=== PATIENT | female | born 1965 | race Caucasian/White ===

== ENCOUNTER 2020-07-02 21:36 | Outpatient (REF) | payer MEDICAID, SELFPAY ==
[2020-07-02 22:24] LABS: Hemoglobin A1C 7.8 % (<5.7)
== END 2020-07-02 21:56 ==
LOC: NCHCN 21:36
PROVIDERS: Visit Provider Registered Nurse
DX: E11.29 Type 2 diabetes mellitus with other diabetic kidney complication (principal)
CPT/HCPCS: 83036

== ENCOUNTER 2021-03-10 13:01 | Outpatient (REF) | payer MEDICAID, SELFPAY ==
--- OUTSIDE RECORDS SUMMARY | 2021-03-10 13:04 | XMS_ITS ---
:1965 Author Care Team Providers Name Role Phone CALI GARCIA MD General Surgeon [phone] RAVI SILVA Primary Care Provider [phone] Allergies Code Code System Name Reaction Severity Status Onset NKDA ? Medications Name Status Start Date Stop Date ? ? amoxicillin 875 mg-potassium Completed ? clavulanate 125 mg tablet baclofen 10 mg tablet Active ? Not availa ble BD Ultra-Fine Short Pen Needle 31 gauge Active ? Not available x 03/07 Calcitrate 315 mg calcium-6.25 mcg (250 Active ? Not available unit) tablet cephalexin 250 mg capsule Completed ? 2018 cephalexin 500 mg capsule Completed ? 2018 ciclopirox 8 % topical solution Active ? Not available erythromycin 5 mg/gram (0.5 %) eye Completed ? 03/05/2019 ointment ferrous sulfate 325 mg (65 mg iron) Active ? Not available tablet,delayed release Flintstones Complete (iron) chewable Active ? Not available tablet Flintstones Gummies [place]-3 Completed ? 02/20 1 tablet twice daily Flintstones with Iron 18 mg iron Completed ? 03/05/2019 chewable tablet fluconazole 150 mg tablet Active ? Not av ailable fluconazole 200 mg tablet Completed ? 2018 folic acid 1 mg tablet Active ? Not avail able FreeStyle Lite Strips Active ? Not availa ble gabapentin 300 mg capsule Active ? Not av ailable two capsules at bedtime gabapentin 600 mg tablet Completed ? 019 Take 1 tablet every day by oral route at bedtime. glipizide 10 mg tablet Active ? Not avail able Take 1 tablet twice a day by oral route. glipizide ER 10 mg tablet, extended Completed ? 03/05/2019 release 24 hr Humalog Mix 75-25 (U-100) Insulin 100 unit/mL subcutaneous s uspension Completed ? 03/05/2019 Inject 10 units twice a day by subcutaneous route as needed. Humira 40 mg/0.8 mL subcutaneous Active ? Not available syringe kit hydrocortisone-acetic acid 1 %-2 % ear Active ? Not available drops Invokana 100 mg tablet Active ? Not avail able Invokana 300 mg tablet Active ? Not avail able one tablet once daily K-Dur Completed ? 03/15/2018 20 MEQ tablet every day ketoconazole 2 % topical cream Completed ? 0 03/05/2019 Lasix 40 mg tablet Active ? Not available Take 1 tablet every day by oral route as needed. lidocaine 5 % topical patch Active ? Not available Lyrica 100 mg capsule Completed ? 03/15/2018 Take 1 capsule 3 times a day by oral route. Lyrica 50 mg capsule Completed ? 03/05/2019 metformin 500 mg tablet Active ? Not avai lable TAKE 1 TABLET (500 MG) BY ORAL ROUTE 2 TIMES PER DAY WITH MORNING ANDEVENING MEALS may take a third dose metformin ER 500 mg tablet,extended Completed ? 03/05/2019 release 24 hr methotrexate sodium 2.5 mg tablet Completed ? 03/05/2019 Novolog Mix 70-30 FlexPen U-100 Insulin Completed ? 03/05/2019 100 unit/mL subcutaneous pen Novolog Mix 70-30FlexPen U-100 Active ? N ot available 15units twice daily.... also has sliding scale nystatin 100,000 unit/gram topical powder Active ? Not available use to affected areas as needed omeprazole 20 mg capsule,delayed Active ? Not available release ondansetron 4 mg disintegrating tablet Completed ? 03/15/2018 Take 1 tablet every 8 hours by oral route as needed. OsmoPrep 1.5 gram (1.102-0.398) tablet Completed ? 03/05/2019 oxycodone 10 mg tablet Completed ? 9 oxycodone-acetaminophen 10 mg-325 mg tablet Active ? Not available One tablet every 4 hours as needed for pain oxycodone-acetaminophen 5 mg-325 mg tablet Completed ? 03/05/2019 Take 1 tablet 6 times a day by oral route. pravastatin 20 mg tablet Completed ? 018 Take 1 tablet every day by oral route. Rectiv 0.4 % (w/w) ointment Active ? Not available apply to rectum twice daily SF 5000 Plus 1.1 % dental cream Active ? Not available SSD 1 % topical cream Active ? Not availa ble terconazole 0.4 % vaginal cream Active ? Not available terconazole 0.8 % vaginal cream Completed ? 03/05/2019 triamcinolone acetonide 0.1 % topical Completed ? 03/05/2019 cream triamcinolone acetonide 0.1 % topical ointment Active ? Not available apply to affected areas daily as needed ursodiol 300 mg capsule Completed ? 03/15/20 18 Take 1 capsule twice a day by oral route. Vitamin B-12 1,000 mcg tablet Active ? N ot available Vitamin B12 Completed ? 03/05/2019 500 mg every day in the morning Vitamin D2 1,250 mcg (50,000 unit) Active ? Not available capsule Vitamin D3 Completed ? 03/15/2018 1000 units once a week Problems Name Status Onset Date Source ? Type 2 Diabetes Mellitus Active 03/15/2018 ? Hyperlipidemia Unknown 03/15/2018 ? Depressive Disorder Unknown 03/15/2018 ? Neuropathy Active 03/15/2018 ? Gastroesophageal Reflux Disease Active 03/15/2018 ? Increased Blood Leukocyte Number Active ? History White Blood Cell Disorder Active ? Histor y Joint Pain in Ankle and Foot Active ? His tory Impingement Syndrome of Shoulder Active ? 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 History Genitalia Abnormal Cytology Findings Active ? Histo ry Human Papillomavirus Deoxyribonucleic Active ? History Acid Test Positive, High Risk on Cervical Specimen Strain of Supraspinatus Muscle AND/OR Active ? History Tendon Pain in Left Foot Active ? History Pain of Right Shoulder Joint Active ? His tory Procedures Date Name Performed by ? 03/16/2018 Colonoscopy Information not avai lable Notes: Polypsx2 09-23-2014 10/23/2016 Abdominoplasty Information not avai lable ? Gastric Bypass Information not avai lable Notes: 2015 ? Tubal Ligation Information not avai lable Results Lab Results Date Name Specimen Result Interpretation Description Value Range Status Address ? 03/16/2018 Pathology TISS - Report results ? Final N [facility] Study below [facility] [address] 02/21/2018 Drug Screen, UR ? Thc negative neg Final [facility] Urine NG/mL (50 [facility] NG/mL) [facility] L ab NG/mL (Internal) : [address] ? ? UR ? Pcp negative neg Final [facility] (25 [facility] NG/mL) [facility] L [facility] (Internal) : [address] ? ? UR ? Cassidy negative neg Final [facility] (150 [facility] NG/mL) [facility] L [facility] (Internal) : [address] ? ? UR ? Met negative neg Final [facility] (500 [facility] NG/mL) [facility] L [facility] (Internal) : [address] ? ? UR ? Opi negative neg Final [facility] (100 [facility] NG/mL) [facility] L [facility] (Internal) : [address] ? ? UR ? Amp negative neg Final [facility] (500 [facility] NG/mL) [facility] L [facility] (Internal) : [address] ? ? UR ? Bzo negative neg Final [facility] (150 [facility] NG/mL) [facility] L [facility] (Internal) : [address] ? ? UR ? Tca negative neg Final [facility] (300 [facility] NG/mL) [facility] L [facility] (Internal) : [address] ? ? UR ? Mtd negative neg Final [facility] (200 [facility] NG/mL) [facility] L [facility] (Internal) : [address] ? ? UR ? Bar negative neg Final [facility] (200 [facility] NG/mL) Hospital L [facility] (Internal) : [address] ? ? UR ABNORMA Oxy positive neg Final [facility] L (100 [facility] NG/mL) Hospital L ab (Internal) : [address] ? ? UR ? Ppx negative neg Final [facility] (300 [facility] NG/mL) [facility] L [facility] (Internal) : [address] ? ? UR ? Bup negative neg Final [facility] (10 [facility] NG/mL) [facility] L [facility] (Internal) : [address] t 12/25/2017 Bacteria N/A ? Final microbiology ? Final [facility] Identification results C ountry , Unspecified Hos pital Lab Specimen (Interna l): [address] t 12/18/2017 Cbc BLD ? Wbc 9.5 10*3/uL 5.0-10 Final N orth .0 [facility] 10*3/u Hospital L ab L (Internal) : [address] t ? ? BLD ? Rbc 4.91 10*6/uL 4.10-5 Final Nort h .30 [facility] 10*6/u Hospital L ab L (Internal) : [address] t ? ? BLD ? Hgb 13.5 g/dL 12.0-1 Final [place] 6.0 [facility] g/dL Hospital L ab (Internal) : [address] t ? ? BLD ? Hct 42.0 % 37.0-4 Final [place] 7.0 % [facility] ([facility] : [address] t ? ? BLD ? Mcv 85.5 fL 80.0-9 Final [place] 6.0 fL [facility] ([facility] : [address] t ? ? BLD ? Mch 27.5 pg 26.0-3 Final [place] 2.0 pg [facility] ([facility] : [address] t ? ? BLD ? Mchc 32.1 g/dL 31.0-3 Final [place] 5.0 [facility] g/dL Hospital L ab (Internal) : [address] t ? ? BLD ? Rdw 13.2 % 11.5-1 Final [place] 4.5 % [facility] Hospital L ab (Internal) : [address] t ? ? BLD ? Plt 297 10*3/uL 130-45 Final [place] 0 [facility] 10*3/u Hospital L ab L (Internal) : [address] ? ? BLD ? Anc 5.16 10*3/uL ? Final Nort h [facility] Hospital L ab (Internal) : [address] 12/18/2017 Venipuncture BLD ? Venpn* ? ? Final [facility] Hospital L ab (Internal) : [address] 12/18/2017 CHERIE S ABNORMA CHERIE positive negat Final [facility] th (Antinuclear L Interpretat [facility] Antibodies) ion Hospi aleah Lab Screen, Serum (I nternal): [address] t ? ? S ? Antibody 1:80 ? Final [place] Titer speckled [facility] Pattern Hospital Lab (Internal) : [address] 12/18/2017 CMP, Serum or S ? g/r 102 mg/dL 74-106 Fin al [facility] Plasma mg/dL [facility] Hospital L ab (Internal) : [address] ? ? S ? Bun 14 mg/dL 7-17 Final [place] mg/dL [facility] ([facility]) : [address] t ? ? S Low Crea 0.40 mg/dL 0.52-1 Final [facility] .04 [facility] mg/dL Hospital L ab (Internal) : [address] ? ? S ? Ca 9.6 mg/dL 8.4-10 Final [facility] .2 [facility] mg/dL Hospital L ab (Internal) : [address] ? ? S ? Na 145 mmol/L 137-14 Final [facility] 5 [facility] mmol/L Hospital L ab (Internal) : [address] ? ? S ? K 4.0 mmol/L 3.5-5. Final [facility] 1 [facility] mmol/L Hospital L ab (Internal) : [address] t ? ? S ? Cl 104 mmol/L 98-107 Final [place] mmol/L [facility] ([facility] : [address] t ? ? S ? Tco2 29.0 mmol/L 22.0-3 Final [facility] 0.0 [facility] mmol/L Hospital L ab (Internal) : [address] t ? ? S ? Tp 7.6 g/dL 6.3-8. Final [facility] 2 g/dL [facility] ([facility] : [address] t ? ? S ? Alb 4.1 g/dL 3.5-5. Final [facility] 0 g/dL [facility] ([facility] : [address] t ? ? S ? Tbil 0.4 mg/dL 0.2-1. Final [facility] 3 [facility] mg/dL Hospital L ab (Internal) : [address] ? ? S ? Alp 100 U/L 50-136 Final [facility] U/L [facility] Hospital L ab (Internal) : [address] t ? ? S ? Alt (Sgpt) 31 U/L 9-52 Final [place] U/L [facility] Hospital L ab (Internal) : [address] ? ? S ? Ast (Sgot) 19 U/L 14-36 Final [place] U/L [facility] Hospital L ab (Internal) : [address] t 12/18/2017 TSH, Serum or S ? Tsh 2.78 0.47-4 Final [facility] Plasma u[IU]/mL .68 [facility] u[IU]/ Hospital L ab mL (Internal) : [address] 12/18/2017 ESR BLD ? Esr 12 mm/h 0-30 Final [facility] (Erythrocyte mm/h Coun try Sedimentation Hos pital Lab Rate), Blood (Int ernal): [address] 09/06/2017 Drug Screen, UR ? Thc negative neg Final [facility] Urine NG/mL (50 [facility] NG/mL) Hospital L ab NG/mL (Internal) : [address], [place] ? ? UR ? Pcp negative neg Final [facility] (25 [facility] NG/mL) Hospital L ab (Internal) : [address] [place] ? ? UR ? Cassidy negative neg Final [facility] (150 [facility] NG/mL) Hospital L ab (Internal) : [address], [place] ? ? UR ? Met negative neg Final [facility] (500 [facility] NG/mL) Hospital L ab (Internal) : [address] ? ? UR ? Opi negative neg Final [facility] (100 [facility] NG/mL) Hospital L ab (Internal) : [address] [place] ? ? UR ? Amp negative neg Final [facility] (500 [facility] NG/mL) Hospital L ab (Internal) : [address] [place] ? ? UR ? Bzo negative neg Final [facility] (150 [facility] NG/mL) Hospital L ab (Internal) : [address] [place] ? ? UR ? Tca negative neg Final [facility] (300 [facility] NG/mL) Hospital L ab (Internal) : [address] [place] ? ? UR ? Mtd negative neg Final [facility] (200 [facility] NG/mL) Hospital L ab (Internal) : [address] [place] ? ? UR ? Bar negative neg Final [facility] (200 [facility] NG/mL) Hospital L ab (Internal) : [address] [place] ? ? UR ABNORMA Oxy positive neg Final [facility] L (100 [facility] NG/mL) Hospital L ab (Internal) : [address] ? ? UR ? Ppx negative neg Final [facility] (300 [facility] NG/mL) Hospital L ab (Internal) : [address] ? ? UR ? Bup negative neg Final [facility] (10 [facility] NG/mL) Hospital L ab (Internal) : [address] [place] 02/22/2017 Opiates, UR ? Codeine-by negative cutoff Celestina glory Sandoval, lc-MS/MS NG/mL : 25 Co untry Urine NG/mL Hospital L ab (Internal) : [address] [place] ? ? UR ? Dihydrocod negative cutoff Final Nor th eine-by NG/mL : 25 [facility] lc-MS/MS NG/mL Hospital Lab (Internal) : [address] [place] ? ? UR ? Hydrocodon negative cutoff Final Nor th e-by NG/mL : 25 [facility] lc-MS/MS NG/mL Hospital Lab (Internal) : [address] [place] ? ? UR ? Norhydroco negative cutoff Final Nor th done-by NG/mL : 25 [facility] lc-MS/MS NG/mL Hospital Lab (Internal) : [address] [place] ? ? UR ? Hydromorph negative cutoff Final Nor th one-by NG/mL : 25 [facility] lc-MS/MS NG/mL Hospital Lab (Internal) : [address] [place] ? ? UR ? Oxycodone- 528 NG/mL cutoff Final No rth by lc-MS/MS : 25 Count ry NG/mL Hospital L ab (Internal) : [address] [place] ? ? UR ? Noroxycodo 1121 NG/mL cutoff Final N orth ne-by : 25 [facility] lc-MS/MS NG/mL Hospital Lab (Internal) : [address] ? ? UR ? Oxymorphon 1149 NG/mL cutoff Final N orth e-by : 25 [facility] lc-MS/MS NG/mL Hospital Lab (Internal) : [address] [place] ? ? UR ? Noroxymorp 286 NG/mL cutoff Final No rth [place]-by : 25 [facility] lc-MS/MS NG/mL Hospital Lab (Internal) : [address] [place] ? ? UR ? Naloxone-b negative cutoff Final Nor th y lc-MS/MS NG/mL : 25 Countr y NG/mL Hospital L ab (Internal) : [address] ? ? UR ? Morphine-b negative cutoff Final Nor th y lc-MS/MS NG/mL : 25 Countr y NG/mL Hospital L ab (Internal) : [address] ? ? UR ? Opiates positive. ? Final [facility] Interpretat Count ry ion Hospital L ab (Internal) : [address] t 02/22/2017 Drug Screen, UR ? Thc negative neg Final [facility] Urine NG/mL (50 [facility] NG/mL) Hospital L ab NG/mL (Internal) : [address] ? ? UR ? Pcp negative neg Final [facility] (25 [facility] NG/mL) Hospital L ab (Internal) : [address] ? ? UR ? Cassidy negative neg Final [facility] (150 [facility] NG/mL) Hospital L ab (Internal) : [address] ? ? UR ? Met negative neg Final [facility] (500 [facility] NG/mL) Hospital L ab (Internal) : [address] ? ? UR ? Opi negative neg Final [facility] (100 [facility] NG/mL) Hospital L ab (Internal) : [address] ? ? UR ? Amp negative neg Final [facility] (500 [facility] NG/mL) Hospital L ab (Internal) : [address] ? ? UR ? Bzo negative neg Final [facility] (150 [facility] NG/mL) Hospital L ab (Internal) : [address] ? ? UR ? Tca negative neg Final [facility] (300 [facility] NG/mL) Hospital L ab (Internal) : [address] ? ? UR ? Mtd negative neg Final [facility] (200 [facility] NG/mL) Hospital L ab (Internal) : [address] ? ? UR ? Bar negative neg Final [facility] (200 [facility] NG/mL) Hospital L ab (Internal) : [address] ? ? UR ABNORMA Oxy positive neg Final [facility] L (100 [facility] NG/mL) Hospital L ab (Internal) : [address] ? ? UR ? Ppx negative neg Final [facility] (300 [facility] NG/mL) Hospital L ab (Internal) : [address] ? ? UR ? Bup negative neg Final [facility] (10 [facility] NG/mL) Hospital L ab (Internal) : [address] 02/05/2017 Drug Screen, UR ? Thc negative neg Final [facility] Urine NG/mL (50 [facility] NG/mL) Hospital L ab NG/mL (Internal) : [address] ? ? UR ? Pcp negative neg Final [facility] (25 [facility] NG/mL) Hospital L ab (Internal) : [address] ? ? UR ? Cassidy negative neg Final [facility] (150 [facility] NG/mL) Hospital L ab (Internal) : [address] ? ? UR ? Met negative neg Final [facility] (500 [facility] NG/mL) Hospital L ab (Internal) : [address] ? ? UR ? Opi negative neg Final [facility] (100 [facility] NG/mL) Hospital L ab (Internal) : [address] ? ? UR ? Amp negative neg Final [facility] (500 [facility] NG/mL) Hospital L ab (Internal) : [address] ? ? UR ? Bzo negative neg Final [facility] (150 [facility] NG/mL) Hospital L ab (Internal) : [address] ? ? UR ? Tca negative neg Final [facility] (300 [facility] NG/mL) Hospital L ab (Internal) : [address] ? ? UR ? Mtd negative neg Final [facility] (200 [facility] NG/mL) Hospital L ab (Internal) : [address] t ? ? UR ? Bar negative neg Final [facility] (200 [facility] NG/mL) Hospital L ab (Internal) : [address] t ? ? UR ABNORMA Oxy positive neg Final [facility] L (100 [facility] NG/mL) Hospital L ab (Internal) : [address] ? ? UR ? Ppx negative neg Final [facility] (300 [facility] NG/mL) Hospital L ab (Internal) : [address] ? ? UR ? Bup negative neg Final [facility] (10 [facility] NG/mL) Hospital L ab (Internal) : [address] t 02/05/2017 Urinalysis, UR ? UA-color yellow pale Final [facility] Dipstick, yellow [facility] Reflex Micro Hosp ital Lab (Internal) : [address] ? ? UR ? UA-appear clear clear Final [place] [facility] (Internal) : [address] t ? ? UR ? UA-spec 1.025 1.003- Final [facility] Grav 1.035 [facility] Hospital L ab (Internal) : [address] t ? ? UR ? UA-pH 5.5 [pH] 4.6-8. Final [place] 0 [pH] [facility] Hospital L ab (Internal) : [address] t ? ? UR ? UA-leuk negative negati Final [facility] L ab (Internal) : [address] t ? ? UR ? UA-nitrite negative negati Final [facility] L ab (Internal) : [address] t ? ? UR ? UA-prot negative negati Final [facility] L ab (Internal) : [address] t ? ? UR ABNORMA UA-gluc >=1000 negati Final [facility] L ab (Internal) : [address] t ? ? UR ? [facility]one [facility] Final [facility] L ab (Internal) : [address] ? ? UR ? UA-urobil normal normal Final [facility] L ab (Internal) : [address] t ? ? UR ? UA-bili negative [facility] L ab (Internal) : [address] ? ? UR ? [facility] [address] 02/05/2017 BMP, Serum or S High g/r 110 mg/dL 74-106 Fin al [facility] Plasma mg/dL [facility] Hospital L ab (Internal) : [address] t ? ? S ? Bun 12 mg/dL 7-17 Final [place] mg/dL [facility] Hospital L ab (Internal) : [address] ? ? S Low Crea 0.40 mg/dL 0.52-1 Final [facility] .04 [facility] mg/dL Hospital L ab (Internal) : [address] t ? ? S ? Ca 9.2 mg/dL 8.4-10 Final [place] .2 [facility] mg/dL Hospital L ab (Internal) : [address] ? ? S ? Na 144 mmol/L 137-14 Final [place] 5 [facility] mmol/L Hospital L ab (Internal) : [address] ? ? S ? K 4.0 mmol/L 3.5-5. Final [facility] 1 [facility] mmol/L Hospital L ab (Internal) : [address] ? ? S ? Cl 103 mmol/L 98-107 Final [place] mmol/L [facility] (Internal[facility] : [address] ? ? S ? Tco2 27.0 mmol/L 22.0-3 Final [facility] 0.0 [facility] mmol/L Hospital L ab (Internal) : [address] t 02/05/2017 CBC W/ Auto BLD ? Wbc 9.2 10*3/uL 5.0-10 Fin al [facility] Diff .0 [facility] 10*3/u Hospital L ab L (Internal) : [address] t ? ? BLD ? Rbc 4.83 10*6/uL 4.10-5 Final Nort h .30 [facility] 10*6/u Hospital L ab L (Internal) : [address] ? ? BLD ? Hgb 13.3 g/dL 12.0-1 Final [place] 6.0 [facility] g/dL Hospital L ab (Internal) : [address] ? ? BLD ? Hct 41.3 % 37.0-4 Final [facility] 7.0 % [facility] (Internal) : [address] ? ? BLD ? Mcv 85.5 fL 80.0-9 Final [place] 6.0 fL [facility] (Internal) : [address] t ? ? BLD ? Mch 27.5 pg 26.0-3 Final [place] 2.0 pg [facility] (Internal) : [address] ? ? BLD ? Mchc 32.2 g/dL 31.0-3 Final [place] 5.0 [facility] g/dL Hospital L ab (Internal) : [address] t ? ? BLD ? Rdw 13.4 % 11.5-1 Final [place] 4.5 % [facility] (Internal[facility] : [address] t ? ? BLD ? Plt 276 10*3/uL 130-45 Final [facility] 0 [facility] 10*3/u Hospital L ab L (Internal) : [address] ? ? BLD ? Anc 4.27 10*3/uL ? Final Nort [facility] (Internal) : [address] ? ? BLD ? Neutro 46.4 % 40.0-7 Final [place] 5.0 % [facility] (Internal) : [address] ? ? BLD ? Lymph 44.4 % 20.0-5 Final [facility] 0.0 % [facility] (Internal) : [address] ? ? BLD ? Denali 6.0 % 2.0-10 Final [facility] .0 % [facility] (Internal) : [address] ? ? BLD ? Eos 2.0 % 1.0-6. Final [facility] 0 % [facility] (Internal) : [address] ? ? BLD ? Baso 0.9 % 0.0-1. Final [facility] 0 % [facility] (Internal) : [address] ? ? BLD ? Ig 0.3 % 0.0-0. Final [facility] 9 % [facility] (Internal) : [address] 01/30/2017 Venipuncture BLD ? Venpn* ? ? Final [facility] Hospital L ab (Internal) : [address] 01/30/2017 Microalbumin, UR ? Malb <6.0 mg/L 5.0-16 Fin al [place] Urine .7 [facility] mg/L Hospital L ab (Internal) : [address] [place] ? ? UR ? U-crea, 50 mg/dL 30-125 Final [place] Spot mg/dL [facility] L [facility] (Internal) : [address] 01/30/2017 Vitamin D, S ? 25-Hydroxy 40 NG/mL ? Fi nal [place] 25-Hydroxy, D2 Count ry Total, Serum Hosp ital Lab (Internal) : [address] ? ? S ? 25-Hydroxy 4.3 NG/mL ? Final No rth D3 [facility] (Internal) : [address] ? ? S ? 25-Hydroxy 44 NG/mL ? Final Nor th D Total [facility] (Internal) : [address] 01/30/2017 HbA1C BLD High Ha1C 8.1 % 4.0-6. Final [place] (Hemoglobin 0 % Count ry a1C), Blood Hospi aleah Lab (Internal) : [address] 01/30/2017 BMP, Serum or S High g/r 244 mg/dL 74-106 Fin al [place] Plasma mg/dL [facility] (Internal) : [address] ? ? S ? Bun 9 mg/dL 7-17 Final [place] mg/dL [facility] (Internal) : [address] ? ? S Low Crea 0.40 mg/dL 0.52-1 Final [facility] .04 [facility] mg/dL Hospital L ab (Internal) : [address] ? ? S ? Ca 9.2 mg/dL 8.4-10 Final [place] .2 [facility] mg/dL Hospital L ab (Internal) : [address] ? ? S ? Na 141 mmol/L 137-14 Final [place] 5 [facility] mmol/L Hospital L ab (Internal) : [address] ? ? S ? K 4.2 mmol/L 3.5-5. Final [place] 1 [facility] mmol/L Hospital L ab (Internal) : [address] ? ? S ? Cl 104 mmol/L 98-107 Final [place] mmol/L [facility] Hospital L ab (Internal) : [address] ? ? S ? Tco2 25.0 mmol/L 22.0-3 Final [place] 0.0 [facility] mmol/L Hospital L ab (Internal) : [address] 01/30/2017 Cholesterol, S ? Chol 166 mg/dL 50-200 Cel[facility]ina [facility] Total, Serum mg/dL Coun try Hospital L ab (Internal) : [address] Past Encounters None recorded. Social History Tobacco Smoking Status Never Smoker Vaccine List None recorded. Plan of Care Reminders Provider Appointments None ? ? recorded. Lab None ? ? recorded. Referral None ? ? recorded. Procedures None ? ? recorded. Surgeries None ? ? recorded. Imaging None ? ? recorded. Vitals 10/13/2009 Weight Blood Pressure 102.06 kg 142/78 mm[Hg] 09/15/2009 Weight Blood Pressure 99.79 kg 122/72 mm[Hg] 06/10/2009 Blood Pressure 118/70 mm[Hg] 12/03/2008 Blood Pressure 110/76 mm[Hg] 06/19/2006 Height 157.48 cm
[2021-03-10 14:33] LABS: COMMENT (LAB VIEW ONLY) 46.22 mg/dL; Microalb ug/mg Crea 17.1 ug/mg Cr
== END 2021-03-10 13:02 | disposition home or self-care (01) ==
LOC: NCHCN 13:01
PROVIDERS: Visit Provider Registered Nurse
DX: E11.29 Type 2 diabetes mellitus with other diabetic kidney complication (principal)
CPT/HCPCS: 82043; 82570

== ENCOUNTER 2022-02-09 10:38 | Outpatient (REF) | payer MEDICAID, SELFPAY ==
[2022-02-09 18:48] LABS: Microalb ug/mg Crea 17.8 ug/mg Cr
== END 2022-02-09 10:39 | disposition home or self-care (01) ==
LOC: NCHCN 10:38
PROVIDERS: Visit Provider Registered Nurse
DX: E11.29 Type 2 diabetes mellitus with other diabetic kidney complication (principal)
CPT/HCPCS: 82043; 82570

== ENCOUNTER 2023-04-05 15:40 | Outpatient (REF) | payer MEDICAID, SELFPAY ==
[2023-04-05 22:32] LABS: COMMENT (LAB VIEW ONLY) 57.53 mg/dL; Microalb ug/mg Crea 46.1 ug/mg Cr
== END 2023-04-05 15:41 | disposition home or self-care (01) ==
LOC: NCHCN 15:40
PROVIDERS: Visit Provider Registered Nurse
DX: E11.29 Type 2 diabetes mellitus with other diabetic kidney complication (principal)
CPT/HCPCS: 82043; 82570

== ENCOUNTER 2024-04-04 14:08 | Outpatient (REF) | payer MEDICAID, SELFPAY ==
[2024-04-04 21:00] LABS: Hemoglobin A1C 7.3 % (<5.7)
[2024-04-04 21:18] LABS: COMMENT (LAB VIEW ONLY) 43.66 mg/dL
[2024-04-04 21:21] LABS: ALT 35 U/L (14-59); AST 23 U/L (15-37); Albumin 3.8 g/dL (3.4-5.0); Alkaline Phosphatase 99 U/L (46-116); Anion Gap 11.2 mmol/L (3-11); BUN 19 mg/dL (7-18); Bilirubin, Total 0.5 mg/dL (0.2-1.0); CO2 27.8 mmol/L (21.0-32.0); CREATININE 0.5 mg/dL (0.55-1.02); Calcium 9.2 mg/dL (8.5-10.1); Chloride 103 mmol/L (98-107); Estimated GFR 107.31 (mL/min/1.73m2); Glucose 105 mg/dL (74-106); Microalb ug/mg Crea 207.1 ug/mg Cr; Sodium 142 mmol/L (136-145); TSH 2.61 uIU/Ml (0.36-3.74); Total Protein 7.8 g/dL (6.4-8.2); Vitamin D 25 Total 42.3 ng/mL (30-100)
== END 2024-04-04 14:09 | disposition home or self-care (01) ==
LOC: NCHCN 14:08
PROVIDERS: Visit Provider Family Medicine
DX: E11.9 Type 2 diabetes mellitus without complications (principal); E78.5 Hyperlipidemia, unspecified; N39.0 Urinary tract infection, site not specified; Z79.899 Other long term (current) drug therapy
CPT/HCPCS: 80053; 82306; 82043; 82570; 83036; 84443

== ENCOUNTER 2024-04-23 15:07 | Outpatient (REF) | payer MEDICAID, SELFPAY ==
--- OUTSIDE RECORDS SUMMARY | 2024-04-23 15:09 | XMS_ITS ---
Author Name Unknown Address [address] [place] [address] [phone] Phone Organization Unknown Address [address] [place] [address] [phone] Phone Care Team Providers Care First Aid Trainer Name Role Phone KARLY Mcelroy Attending Unavailable Results HEMOGLOBIN A1C* - Collect Da te/Time: 11/28/2022 11:31 [facility] ID: [id number] - [id number] [address] [place] [address], [id number] LOINC: 4548-4 Test Value Unit Reference Range Code Code System Flag Hgb A1c 7.2 % L=3.8 H=5.7 4548-4 LOINC H MEAN BLOOD GLUCOSE 154 mg/dL 33884-5 LOINC Social History Type Status Start Date End Date Code Code Syst em Smoking History Never smoker (Never Smoked) [id number] SNOMED CT Sex Female Hospital Discharge Instructions Should you have any questions prior to discharge, please contact a member of your healthcare team. If you have left the hospital and have any questions, please contact your primary care physician. Reason For Referral No Data Found Plan of Treatment US EXTREMITY 06/08/2022 Encounters Encounter Diagnosis Start Date Code Code Sys tem Renal disorder due to type 2 diabetes mellitus 023 [id number] SNOMED-CT Personal Care Team Section Performer Name Performer Role Active Date Inactive Da te
--- OUTSIDE RECORDS SUMMARY | 2024-04-23 15:09 | XMS_ITS ---
Author Name Unknown Address [address] [place] [address] [phone] Phone Organization Unknown Address [address] [place] [address] [phone] Phone Care Team Providers Care Ob/Gyn Doctor Name Role Phone KARLY Mcelroy Attending Unavailable Results US ABD LIMITED ONE ORGAN - C ompleted: 06/08/2022 10:36 LOINC: ULTRASOUND OF THE LOWER BACK : Compared to prior ultrasound of 05/06/20. Dedicated ultrasound examination of the area concern again reveals no evidence of solid nor significant cystic abnormality. No mass evident. IMPRESSION:No significant findings on ultrasound examination of the right lower back region. If there is a high clinical suspicion for this area, then followup CT or MRI can be performed. Dictated by: SAMANTHA TRACEY MD Transcribed by: WYATT 06/10/22/13:23 D Wednesday, June 08, 2022 11:11:49 AM [id number] Electronically Reviewed and Signed By: CATHERINE TRACEY MD 06/11/22 10:46 Copy for: KARLY Mcelroy via fax Copy for: [facility] MG[facility] Social History Type Status Start Date End Date Code Code Syst em Smoking History Never smoker (Never Smoked) [id number] SNOMED CT Sex Female Hospital Discharge Instructions Should you have any questions prior to discharge, please contact a member of your healthcare team. If you have left the hospital and have any questions, please contact your primary care physician. Reason For Referral No Data Found Plan of Treatment US EXTREMITY 06/08/2022 Encounters Encounter Diagnosis Start Date Code Code Sys tem Localized swelling, mass and lump, trunk 06/08/2022 SNOMED-CT Personal Care Team Section Performer Name Performer Role Active Date Inactive Da te
--- OUTSIDE RECORDS SUMMARY | 2024-04-23 15:09 | XMS_ITS | Continuity of Care Document ---
Author Name Unknown Organization [facility] Address [address] [place] [address] Care Team Providers Care Finish Carpenter Name Role Phone Jonah Bowers Primary Care Physician Encounter [facility] Date(s): 09/07/23 - 09/07/23 [facility] [address] [place] [address] Encounter Diagnosis Encounter for screening for malignant neoplasm of colon(Final) - Personal history of colonic polyps(Final) - Family history of malignant neoplasm of digestive organs(Final) - Type 2 diabetes mellitus without complications(Final) - Discharge Disposition: Home or Self Care Attending Physician: Clifford Castro MD Admitting Physician: Clifford Castro MD Referring Physician: Clifford Castro MD Allergies, Adverse Reactions, Alerts No Known Medication Allergies Assessment and Plan Future Scheduled Tests Laboratory* SARS-CoV-2 (COVID-19) RNA (ID Now) 09/06/22 Functional Status 09/07/23 ADLs Independent Recent Travel History No recent travel 09/04/23 Living Situation Home independently Medications !-boric acid vaginal suppository 1 supp, VAG, Daily, # 3 EA, 0 Refill(s) Start Date: 07/01/22 Stop Date: 07/04/22 Status: Ordered baclofen 10 mg oral tablet 0 Refill(s) Start Date: 06/24/22 Status: Ordered Benadryl Allergy 25 mg oral tablet 0 Refill(s) Start Date: 07/01/22 Status: Ordered Calcitrate 0 Refill(s) Start Date: 06/24/22 Status: Ordered cyclobenzaprine 10 mg oral tablet 0 Refill(s) Start Date: 07/01/22 Status: Ordered Diflucan 150 mg oral tablet 150 mg = 1 tab, Oral, Once, # 1 tab, 0 Refill(s) Start Date: 07/01/22 Status: Ordered Dulcolax Laxative 5 mg oral delayed release tablet See Instructions, take 20mg at 1pm the day before colonoscopy, # 4 tab, 0 Refill(s), Pharmacy: [facility] Start Date: 07/08/22 Status: Ordered Enbrel SureClick 50 mg/mL subcutaneous solution 50 mg =, Subcutaneous, every week, # 3.92 mL, 0 Refill(s) Start Date: 07/01/22 Status: Ordered fluticasone 27.5 mcg/inh nasal spray 0 Refill(s) Start Date: 07/01/22 Status: Ordered gabapentin 300 mg oral capsule 0 Refill(s) Start Date: 06/24/22 Status: Ordered glipiZIDE 10 mg oral tablet 0 Refill(s) Start Date: 06/24/22 Status: Ordered Invokana 100 mg oral tablet 0 Refill(s) Start Date: 06/24/22 Status: Ordered levothyroxine 25 mcg (0.025 mg) oral capsule 25 mcg = 1 cap, Oral, Daily, # 30 cap, 0 Refill(s) Start Date: 07/01/22 Status: Ordered lidocaine 5% patch 0 Refill(s) Start Date: 07/01/22 Status: Ordered metFORMIN 500 mg oral tablet 0 Refill(s) Start Date: 06/24/22 Status: Ordered MiraLax oral powder for reconstitution 17 g, Oral, Daily, dissolve in water or juice as directed on scope instructions, # 238 g, 0 Refill(s), Pharmacy: [facility] Start Date: 07/08/22 Status: Ordered multivitamin adult, oral tablet 0 Refill(s) Start Date: 07/01/22 Status: Ordered NovoLOG Mix 70/30 FlexPen 0 Refill(s) Start Date: 06/24/22 Status: Ordered omeprazole 20 mg oral delayed release capsule 0 Refill(s) Start Date: 06/24/22 Status: Ordered oxyCODONE-acetaminophen 10 mg-325 mg oral tablet 2 tab, Oral, every 6 hr, PRN as needed for pain, 0 Refill(s) Start Date: 06/24/22 Status: Ordered Acosta Milk of Magnesia 8% oral suspension See Instructions, take 60 ml at 2pm 2 days before your colonoscopy (take in place of magnesium citrate), # 360 mL, 0 Refill(s), Pharmacy: [facility] Start Date: 07/08/22 Status: Ordered Sutab oral tablet See Instructions, Dose 1 take 12 tabs with 16 ouces of water, with additional 32 ounces of water Dose 2 take 12 tabs with 16 ounces of water followed by an additional 32 ounces of water, # 24 tab, 0 Refill(s), Pharmacy: [facility], 160, cm, 07/15/22 7:14:00 EDT, Height Start Date: 08/23/23 Status: Ordered triamcinolone 0.025% topical cream 0 Refill(s) Start Date: 07/01/22 Status: Ordered Vitamin B-12 1000 mcg oral tablet 0 Refill(s) Start Date: 06/24/22 Status: Ordered Vitamin D2 1.25 mg (50,000 intl units) oral capsule 0 Refill(s) Start Date: 06/24/22 Status: Ordered Problem List Condition Confirmation Course Effective Dates Status H ealth Status Informant Abnormal cytology findings Confirmed Active High serum parathyroid hormone (PTH) Confirmed Active Chronic pain Confirmed Active 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 Gastroesophageal reflux disease Confirmed 03/15/18 Active Chronic GERD Confirmed Active GERD - Gastro-esophageal reflux disease Confirmed Active History of adenomatous polyp of colon Confirmed Active History of kidney stones Confirmed Active Human papillomavirus deoxyribonucleic acid detection Confirmed Active 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, 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 Active Hypothyroidism Confirmed Active Impingement syndrome of shoulder region Confirmed Active Increased blood leukocyte number Confirmed Active Memory loss or impairment Confirmed Active Neuropathy Confirmed Active Psoriasis Confirmed Active Seborrheic keratosis Confirmed Active Type 2 diabetes mellitus Confirmed Active 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 Procedures Procedure Date Related Diagnosis Body Site Status Colonoscopy 07/14/22 Completed Bilateral tubal ligation Completed Gastric bypass Completed Results Laboratory List Name Date Glucose POCT 09/07/23 Most recent to oldest [Reference Range]: 1 Glucose POC [74-106 mg/dL] 120 mg/dL *HI* (09/07/23 9:48 AM) Vital Signs Most recent to oldest [Reference Range]: 1 2 3 Temperature Temporal Artery [36-38 Deg C] 36.4 Deg C (09/07/23 11:55 AM) 36.1 Deg C (09/07/23 11:10 AM) 36.2 Deg C (09/07/23 10:57 AM) Temperature Temporal Artery (DegF) [97.3-100 Deg F] 97.52 Deg F (09/07/23 11:55 AM) 96.98 Deg F *LOW* (09/07/23 11:10 AM) 97.16 Deg F *LOW* (09/07/23 10:57 AM) Peripheral Pulse Rate [60-100 bpm] 110 bpm *HI* (09/07/23 11:55 AM) 112 bpm *HI* (09/07/23 11:45 AM) 114 bpm *HI* (09/07/23 11:30 AM) Heart Rate Monitored [60-100 bpm] 110 bpm *HI* (09/07/23 11:55 AM) 114 bpm *HI* (09/07/23 11:45 AM) 116 bpm *HI* (09/07/23 11:30 AM) Respiratory Rate [12-24 br/min] 16 br/min (09/07/23 11:55 AM) 15 br/min (09/07/23 11:45 AM) 17 br/min (09/07/23 11:30 AM) Blood Pressure [90-140/60-90 mmHg] 104/53mmHg (09/07/23 11:55 AM) 129/60mmHg (09/07/23 11:45 AM) 133/65mmHg (09/07/23 11:30 AM) Mean Arterial Pressure, Cuff [70-110 mmHg] 70 mmHg (09/07/23 11:55 AM) 83 mmHg (09/07/23 11:45 AM) 88 mmHg (09/07/23 11:30 AM) Mean Arterial Pressure Cuff 97 mmHg (09/07/23 9:46 AM) Blood Pressure Location Left arm (09/07/23 9:46 AM) Weight 64.8 kg (09/07/23 9:46 AM) Weight Dosing 64.800 kg (09/07/23 9:46 AM) Height 157 cm (09/07/23 9:46 AM) Social History Social History Type Response Tobacco Never tobacco user T obacco Use:. Sex Female Hospital Discharge Instructions Patient Education 09/07/2023 10:35:29 ss colonoscopy discharge instructions (CUSTOM) COLONOSCOPY / SIGMOIDOSCOPY Findings: Poor prep, unable to complete exam Following day: Return to full activity, including work. Diet: Eat and drink normally, unless instructed otherwise. Treatment for common after affects: Mild abdominal pain, bloating, or excessive gas: Rest, eat lightly and use a heating pad. Symptoms to watch for and report to your physician: SEVERE abdominal pain or bloating. Fever within 24 hours after procedure. A large amount of rectal bleeding. (A small amount of blood from the rectum is not serious, especially if hemorrhoids are present.) If bright red rectal bleeding occurs, call your physician. If you have had a Colonoscopy: Do not attempt to drive a vehicle or operate power equipment of any kind for at least 24 hours after discharge from the hospital. Do not consume alcoholic beverages or other mood-altering drugs on the day of surgery. Mild irritation at needle site: Apply warm, moist pack to area for 20 minutes four times a day for 2-3 days. Call physician if persistent redness and/or drainage at needle site. In the event of any problems after surgery, do not hesitate to contact your doctor, [facility] , or the Emergency Room at [phone]. Discharge instructions * Penelope Hernadez: PERFORM Event Display: Discharge Instructions Authored Date: [id number] JO JONES :1965 Age:57 years Sex:Female Visit Date:09/07/2023 Primary Care Physician: Jonah Bowers DO Hospital Discharge Instructions We would like to thank you for allowing us to assist you with your healthcare needs. The following includes patient education materials and information regarding your injury/illness. Your Next Steps Discharge Orders Discharge Patient Instructions, Rest today. Resume diet and activities as tolerated. Your Summary Your Care Team Admitting Physician - Clifford Castro MD Attending Physician - Clifford Castro MD Primary Care Physician - Jonah Bowers DO Referring Physician - Clifford Castro MD Education Materials COLONOSCOPY / SIGMOIDOSCOPY Findings: Poor prep, unable to complete exam Following day: Return to full activity, including work. Diet: Eat and drink normally, unless instructed otherwise. ? Treatment for common after affects: Mild abdominal pain, bloating, or excessive gas: Rest, eat lightly and use a heating pad. ? Symptoms to watch for and report to your physician: SEVERE abdominal pain or bloating. ? Fever within 24 hours after procedure. ? A large amount of rectal bleeding. (A small amount of blood from the rectum is not serious, especially if hemorrhoids are present.) ? If bright red rectal bleeding occurs, call your physician. ? If you have had a Colonoscopy: Do not attempt to drive a vehicle or operate power equipment of any kind for at least 24 hours after discharge from the hospital. ? Do not consume alcoholic beverages or other mood-altering drugs on the day of surgery. ? Mild irritation at needle site: Apply warm, moist pack to area for 20 minutes four times a day for 2-3 days. ? Call physician if persistent redness and/or drainage at needle site. ? In the event of any problems after surgery, do not hesitate to contact your doctor, [facility] , or the Emergency Room at [phone]. Patient/Labeling Specialist Signature Patient Name:JO JONES I have received this information and my questions have been answered. Patient/Labeling Specialist Name: Patient/Labeling Specialist Signature: Relationship to Patient: Witness Name/Signature: Date: Electronically Signed on: 09/07/2023 11:36 ESTSigned by:MBP History and physical note * Clara Burgess: PERFORM Event Display: History and Physical Authored Date: [id number] * Clifford Castro MD: PERFORM Event Display: History and Physical Authored Date: [id number] JO JONES :1965 Age:57 years Sex:Female Visit Date:09/07/2023 Primary Care Physician: Jonah Bowers DO See paper H&P; pt examined. Proceed as planned.? Clifford Castro MD 09/07/2023 ?? Electronically Signed on 09/07/23 10:36 AM Clifford Castro MD Patient Care team information Care Team Personnel Name: Jonah Bowers DO Position: No Access Member Role: Informed Provider Address: Address: [address] [place] [phone] Care Team Related Persons Name: SHAY JONES
--- OUTSIDE RECORDS SUMMARY | 2024-04-23 15:09 | XMS_ITS | Continuity of Care Document ---
Author Name Unknown Organization [facility] Address [address] [place] [address] Care Team Providers Care Acid Leveler Name Role Phone Jonah Bowers Primary Care Physician Encounter [facility] Date(s): 07/15/22 - 07/15/22 [facility] [address] [place] [address] Discharge Disposition: Home Attending Physician: Jonah Bowers DO Admitting Physician: Jonah Bowers DO Referring Physician: Jonah Bowers DO Allergies, Adverse Reactions, Alerts No Known Medication Allergies Assessment and Plan Diagnostic Tests Pending * Surgical Pathology [facility] 07/15/22 Future Scheduled Tests Laboratory* SARS-CoV-2 (COVID-19) RNA (ID Now) 09/06/22 Functional Status 07/15/22 ADLs Other: uses a walker on mobility Family Member Travel History No recent t ravel Recent Travel History No recent travel Other exposure to Infectious Disease Non e Medications !-boric acid vaginal suppository 1 supp, [...] colonoscopy, # 4 tab, 0 Refill(s), Pharmacy: [facility] Start Date: 07/08/22 Status: Ordered Enbrel [...] instructions, # 238 g, 0 Refill(s), Pharmacy: [facility] Start Date: 07/08/22 Status: Ordered multivitamin [...] citrate), # 360 mL, 0 Refill(s), Pharmacy: [facility] Start Date: 07/08/22 Status: Ordered triamcinolone 0.025% topical cream 0 Refill(s) Start Date: 07/01/22 Status: Ordered Vitamin B-12 1000 mcg oral tablet 0 Refill(s) Start Date: 06/24/22 Status: Ordered Vitamin D2 1.25 mg (50,000 intl units) oral capsule 0 Refill(s) Start Date: 06/24/22 Status: Ordered Problem List Condition Effective Dates Status Health Status Inform ant Abnormal cytology findings(Confirmed) Active High serum parathyroid hormo ne (PTH)(Confirmed) Active Chronic pain(Confirmed) Active Congenital anomaly of assistant analyst al female genitalia(Confirmed) Active Gastroesophageal reflux disease(Confirmed) 03/15/18 Active Chronic GERD(Confirmed) Active GERD - Gastro-esophageal ref lux disease(Confirmed) Active History of adenomatous polyp of colon(Confirmed) Active History of kidney stones(Confirmed) Active Human papillomavirus deoxyri bonucleic acid detection(Confirmed) Active Human papillomavirus deoxyri bonucleic acid test positive, high risk on cervical specimen(Confirmed) Active Hypothyroidism(Confirmed) Active Impingement syndrome of [facility](Confirmed) Active Increased blood leukocyte number(Confirmed) Active Memory loss or impairment(Confirmed) Active Neuropathy(Confirmed) Active Psoriasis(Confirmed) Active Seborrheic keratosis(Confirmed) Active Type 2 diabetes mellitus(Confirmed) Active White blood cell abnormality(Confirmed) Active White blood cell disorder(Confirmed) Active Procedures Procedure Date Related Diagnosis Body Site Status Bilateral tubal ligation Completed Gastric bypass Completed Results Laboratory List Name Date Glucose POCT 07/15/22 Most recent to oldest [Reference Range]: 1 Glucose POC [74-106 mg/dL] 110 mg/dL *HI* (07/15/22 7:12 AM) Vital Signs Most recent to oldest [Reference Range]: 1 2 3 Temperature Oral [35.8-37.3 Deg C] 37 Deg C (07/15/22 7:13 AM) Temperature Temporal Artery [36-38 Deg C] 35.9 Deg C *LOW* (07/15/22 9:20 AM) 35.8 Deg C *LOW* (07/15/22 9:05 AM) 35.7 Deg C *LOW* (07/15/22 8:50 AM) Temperature Temporal Artery (DegF) [97.3-100 Deg F] 96.62 Deg F *LOW* (07/15/22 9:20 AM) 96.44 Deg F *LOW* (07/15/22 9:05 AM) 96.26 Deg F *LOW* (07/15/22 8:50 AM) Peripheral Pulse Rate [60-100 bpm] 88 bpm (07/15/22 9:20 AM) 93 bpm (07/15/22 9:05 AM) 87 bpm (07/15/22 9:00 AM) Heart Rate Monitored [60-100 bpm] 88 bpm (07/15/22 9:20 AM) 93 bpm (07/15/22 9:05 AM) 87 bpm (07/15/22 9:00 AM) Respiratory Rate [12-24 br/min] 20 br/min (07/15/22 9:20 AM) 17 br/min (07/15/22 9:05 AM) 14 br/min (07/15/22 9:00 AM) Blood Pressure [90-140/60-90 mmHg] 99/58mmHg (07/15/22 9:20 AM) 102/49mmHg (07/15/22 9:05 AM) 114/60mmHg (07/15/22 9:00 AM) Mean Arterial Pressure, Cuff [65-140 mmHg] 72 mmHg (07/15/22 9:20 AM) 67 mmHg (07/15/22 9:05 AM) 78 mmHg (07/15/22 9:00 AM) Blood Pressure Location Left arm (07/15/22 7:13 AM) Blood Pressure Method Automatic (07/15/22 7:13 AM) Weight 76.8 kg (07/15/22 7:13 AM) Height 160 cm (07/15/22 7:13 AM) Social History Social History Type Response Tobacco Never tobacco user T obacco Use:. Sex Female Hospital Discharge Instructions Patient Education 07/15/2022 08:07:19 ss colonoscopy discharge instructions COLONOSCOPY / SIGMOIDOSCOPY Following day: Return to full activity, including [...] serious, especially if hemorrhoids are present.) If a polyp has been removed- for the next seven days: Do not take aspirin. If you did NOT stop taking aspirin before your procedure, continue taking it even if you???ve had a polyp removed. If bright red rectal bleeding occurs, call [...] do not hesitate to contact your doctor, [facility] , or the Emergency Room at [phone]. Diagnosis: polyp x1,diverticulosis Doctor: caty Follow Up Appointment: Patient Care team information Personnel Name: Jonah Bowers DO Address: Address: [address] [place] [phone]
== END 2024-04-23 15:08 | disposition home or self-care (01) ==
LOC: NCHCN 15:07
PROVIDERS: PCP Family Medicine; Visit Provider Family Medicine
DX: N39.0 Urinary tract infection, site not specified (principal); B95.2 Enterococcus as the cause of diseases classified elsewhere
CPT/HCPCS: 87077; 87086; 87186

== ENCOUNTER 2024-05-15 10:49 | Outpatient (REF) | payer MEDICAID, SELFPAY ==
--- OUTSIDE RECORDS SUMMARY | 2024-05-15 11:00 | XMS_ITS | Encounter Summary ---
Author Organization [facility] Address [address] [place] [address] Care Team Providers Care [employer] Man Name Role Phone Katia Haywood Primary Care Provider [phone] Reason for Visit * Auth/Cert (Routine) Specialty Diagnoses / Procedures Referred By Contpaige t Referred To Contact Diagnoses Cystocele, unspecified Rectocele Procedures MD ANTERIOR COLPORRAPHY RPR CYSTOCELE W/CYSTO MD POST COLPORRHAPHY RECTOCELE W/WO PERINEORRHAPHY anterior colporrhaphy, cystoscopy posterior colporrhaphy Referral ID Status Reason Start Date Expiration Date Visits Re quested Visits Authorized [id number] 1 1 Encounter Details Date Type Department Care Team (Late st Contact Info) Description 01/18/2024 8:25 EDT - 01/18/2024 10:40 EDT Surgery [facility] OR [address] [place] [address] Chelsi Rivera MD [address] [place] [address] Medical Office Building, [address] [place] [address] anterior colporrhaphy, cystoscopy [27575 (CPT??)] Surgery Details Date/Time Status Location OR Service Patient Class Case Cl ass Case Type Trauma Case? 01/18/24 0825 Posted [facility] OR [facility] - Elective Panel 1 Procedure [facility] An[facility] Region Wound Class Comments anterior colporrhaphy, cystoscopy N/A General Vagina Class II/ Clean Contaminated Panel 2 Procedure [facility] Anes Op Region Wound Class Comments posterior colporrhaphy N/A General Vagina Class I I/ Clean Contaminated Surgeon Surgeon Role Service Panel Chula Whitley MD Primary General 2 Chelsi Rivera MD Primary Gynecology 1 Thais Joseph Resident - Assisting Gynecology 1 documented in this encounter Social History Tobacco Use Types Packs/Day Years Used Date Smoking Tobacco: Never Smokeless Tobacco: Never Alcohol Use Standard Drinks/Week Comments Not Currently 0 (1 standard drink = 0.6 oz pur e alcohol) Interpersonal Safety Answer Date Record ed Physically Hurt Never 05/24/2020 Verbally Threaten Not on file 05/24/2020 Sex and Gender Information Value Date Recorded Sex Assigned at Female 02/22/2021 15:01 EDT Gender Identity Female 04/30/2020 8:27 EDT Sexual Orientation Straight 02/22/2021 15 :01 EDT documented as of this encounter Last Filed Vital Signs Vital Sign Reading Time Taken Comments Blood Pressure 132/64 01/18/2024 1028 EDT Pulse - - Temperature 36.4 ??C (97.5 ??F) 01/18/2024 1028 EDT Respiratory Rate 14 01/18/2024 1030 EDT Oxygen Saturation 97% 01/18/2024 1030 EDT Inhaled Oxygen Concentration - - Weight 69.4 kg (153 lb) 01/18/2024 0748 EDT Height 157.5 cm (5' 2) 01/18/2024 0748 EDT Body Mass Index 27.98 01/18/2024 0748 EDT documented in this encounter Functional Status Functional Status Response Date of Assess ment Because of a physical, menta l, or emotional condition, does this person have difficulty doing errands alone such as visiting a doctor's office or shopping? No 03/11/2016 Cognitive Status Response Date of Assessm ent Because of a physical, menta l, or emotional condition, does this person have serious difficulty concentrating, remembering, or making decisions? No 03/11/2016 documented as of this encounter Discharge Instructions * Discharge Instructions* Lauren Posada RN - 01/18/2024 10:41 EDT You next dose of tylenol is due at 200 pm if needed. * Discharge Instr - AVS First Page* Thais Joseph - 01/18/2024 10:28 EDT Images from the original note were not included. Post-Operative Instructions Pain management: For the 2 days after surgery, take tylenol and oxycodone for pain control. You don't have to wake up to take medicines. As healing occurs, you will be able to increase the length of time between doses until you will not need to use the medication at all. You may be discharged from the hospital with a prescription for pain medicine. Prescription pain medications can be habit forming (addicting) and should be used with caution. For best results, take the medication when you first note the onset of pain. As healing occurs, youwill be able to stretch out the length of time between doses until you will not need to use the medication at all. You may have some degree of discomfort for up to 12 weeks. Antibiotics: If given a prescription for an antibiotic, you should take this medicine until it is gone. Hygiene: You will notice a moderate amount of red to brown vaginal drainage for the first several days after surgery. This drainage may persist for up to one month depending on your healing process and activity level. No bathing (immersion in bathtub or hot tub or pool) for three weeks after surgery unless otherwise directed as this can increase the risk of infections. Sitz baths OK as directed by your doctor. You may shower; washing carefully around catheter and rinsing well. As healing occurs, you may notice sutures in the vaginal area. Do not pull on them. Many of the sutures will dissolve over time. Managing Constipation: Avoiding pushing and straining after surgery is important. You will be prescribed stool softeners or can take Milk of Magnesium to assist with ease of bowel movements, especially while you take pain medications. If advised, take Fiber supplement by mouth twice daily for the next 4 weeks unless stools become too soft and Colace 1 capsule by mouth twice daily. Do not go longer than two days without a bowel movement. If necessary, take one ounce (30cc) of Milk of Magnesium at bedtime. If you do not have a bowel movement by the next morning, repeat the process again that morning. You may need to take this medicine more than once in the first few weeks after surgery, especially if you are taking pain medication. If you are already taking a regular routine of supplements or stool softeners, you will continue to do so. Diet/nutrition: Follow a high fiber diet and maintain good hydration (urine should be light yellow). Water will aid in keeping your stool soft and keeping your urine dilute. Eight 8 ounce glasses of water daily is recommended. Fiber adds bulk to your stool and keeps it softer, making elimination easier. Suggested foods include: whole wheat grains, bran, brown rice, dried fruits, berries, oranges,and vegetables including broccoli, beans, peas, and corn. Driving precautions: You should not drive if you are taking pain medications. Catheter: It is possible that you might have a catheter for a few days after surgery. If so, you will be instructed on how to remove it in advance, or you will have an office visit shortly after surgery to have it removed. Please review the Catheter Care instructions before surgery so you will be better prepared after your surgery. Activity Level and Exercises: You are allowed to walk as much as is comfortable two days after surgery. Walk within your pain/discomfort limit - don???t push yourself for long distances. Slowly rebuild your endurance and slowly work up to the distances you walked before your surgery. No strenuous activity for the first 2-3 weeks. Don???t do crunches, sit ups or double leg lowering, and other similar exercises, as they put too much downward pressure on your pelvic organs. Roll to your side to get out of bed, don???t sit straight up. Rest: If you overdo activity, you may notice an increase in fatigue and the amount and redness of vaginal discharge. If so, cut back on your activity. You should rest lying down on your back with your knees supported by a pillow or two to relieve the pressure within the pelvis. If you continue to bleed heavily, (one pad per hour), contact our office. Nothing in your vagina for 6-12 weeks: Your surgeon will discuss this with you at your follow up visit and update this precaution based on your healing. Lifting limits: Do not lift anything heavier than 10# (pounds) in the first 4 weeks and no more than 30 pounds x 3 months post-operatively. Some examples: A gallon of milk weighs 8.6 lbs. Your grocery bag shouldn???t have much more in it if you buy a gallon of anything. Don???t lift a roast or turkey out of the oven if it weighs more than this. Ask for help. Plan in advance to dole out dog or cat food, shaw litter, etc into smaller containers than you might ordinarily use - lighten things up in advance. Lifting Mechanics: Avoid full squats with your knees apart. Instead, do a golfer???s or a half kneeling lift. Golfer???s Lift Half kneeling Lift Start to use your pelvic floor muscles gently, to support your healing surgery. Limit lifting, and gently use your muscles to support your healing repair, when you do light lifting Cushions: You may find it more comfortable to sit on a cushion which will relieve pressure on the perineal area (the area of the surgery) for the first few days after surgery. These are available at local medical supply stores, or can be ordered online. A ???donut?? cushion is usually enough to accomplish this unweighting. Some other suggestions include: Theraseat, CushTush, Kabooti, Cushion your Assets, all of which can be ordered online. PROBLEMS? Please call our office if you experience: Fever greater than 101.5 F A malodorous or foul vaginal discharge Heavy vaginal bleeding that does not slow down with less activity Significant increase in pain not associated with increased activity Reference: Recurrent pelvic organ prolapse: International [employer] Research andDevelopment Committee Opinion August 2016 documented in this encounter Medications at Time of Discharge Medication Sig Dispensed Refills Start Date End Date baclofen (LIORESAL) 10 mg tablet Take 1 Tablet by mouth 4 times daily. canagliflozin (INVOKANA) 300 mg tablet Take 1 Tablet by mouth daily. 02/05/2019 ciclopirox (PENLAC) 8 % solution Apply to affected nails daily as instructed 1 Bottle 1 06/14/2019 cyclobenzaprine (FLEXERIL) 10 mg tablet Take 1 Tablet by mouth at bedtime. 90 Tablet 08/16/2021 ergocalciferol (DRISDOL; VITAMIN D2) 1,250 mcg (50,000 unit) capsule Take 1 Capsule by mouth once a week. furosemide (LASIX) 40 mg tablet Take 40 mg by mouth daily. Reported on 03/13/2017 gabapentin (NEURONTIN) 300 mg capsule Take 1 Capsule by mouth 2 times daily. glipiZIDE (GLUCOTROL) 10 mg tablet Take 1 Tablet by mouth 2 times daily. insulin lispro (HUMALOG) 100 unit/mL injectionIndications:p er patient insulin called 70/30 Inject into the skin 3 times daily. Sliding scale levothyroxine (SYNTHROID) 25 mcg tablet Take 1 Tablet by mouth daily. lidocaine 5 % (LIDODERM) 5 % patch Place 1 Patch onto the skin daily. metformin (GLUCOPHAGE) 500 mg tablet Take 1 Tablet by mouth 3 times daily before meals. nystatin (MYCOSTATIN) powder 3 times daily as needed. 12/14/2019 omeprazole (PRILOSEC) 20 mg capsule Take 1 Capsule by mouth daily. oxyCODONE (ROXICODONE) 5 mg immediate release tablet Take 1 Tablet by mouth every 4 hours as needed for Pain. Daily Max: 30 mg 10 Tablet 01/18/2024 oxyCODONE-acetaminophe n (PERCOCET) 10-325 mg per tablet Take 1 Tablet by mouth every 4 hours as needed for Pain. Takes 5 tabs daily pediatric multivitamin no.76 tablet,chewable Take 1 Tab by mouth. 02/13/2019 secukinumab (COSENTYX, 2 SYRINGES,) 150 mg/mL syringe Inject 2 mL into the skin every 4 weeks. Every 28 days triamcinolone (KENALOG) 0.1 % ointment APPLY TOPICALLY TO ARMS LEGS AND ABDOMEN TWO TIMES A DAY NEEDED 05/01/2018 acetaminophen (TYLENOL) 500 mg tablet Take 2 Tablets by mouth every 8 hours for 10 days. 60 Tablet 01/18/2024 01/28/2024 docusate sodium (COLACE) 100 mg capsule Take 1 Capsule by mouth daily for 14 days. 14 Capsule 01/18/2024 02/01/2024 estradioL (ESTRACE) 0.01 % (0.1 mg/gram) vaginal cream Place 0.5 g vaginally three times a week. 42 g 11 03/15/2023 04/05/2024 polyethylene glycol 3350 (MIRALAX) 17 gram packet Take 17 g by mouth daily for 14 days. 14 Packet 01/18/2024 02/01/2024 documented as of this encounter Ordered Prescriptions Prescription Sig Dispensed Refills Start Date End Da te oxyCODONE (ROXICODONE) 5 mg immediate release tablet Take 1 Tablet by mouth every 4 hours as needed for Pain. Daily Max: 30 mg 10 Tablet 01/18/2024 docusate sodium (COLACE) 100 mg capsule Take 1 Capsule by mouth daily for 14 days. 14 Capsule 01/18/2024 02/01/2024 polyethylene glycol 3350 (MIRALAX) 17 gram packet Take 17 g by mouth daily for 14 days. 14 Packet 01/18/2024 02/01/2024 acetaminophen (TYLENOL) 500 mg tablet Take 2 Tablets by mouth every 8 hours for 10 days. 60 Tablet 01/18/2024 01/28/2024 documented in this encounter Discharge Disposition Disposition Code Departure Means Destination Comment s Home or Self Mcfp documented in this encounter Progress Notes * Chula Whitley MD - 01/18/2024 0749 EDT The H&P from Lolly Garcia has been reviewed. There are no changes in her clinical history since this exam. She continues to use 10/325 mg Percocet pills 6 times daily as prescribed by her PCP. Discussed with her patient plan for 10 total oxycodone pills to be used only as needed for her post operative pain. She also knows tub soaks, cold packs, Tylenol (may take another 2000mg above and beyond her Percocet pills daily) and ibuprofe n. documented in this encounter H&P Notes * Thais Joseph - 01/18/2024 0821 EDT The preoperative history and physical which was performed within 30 days of this procedure has been reviewed and the clinically appropriate elements of the physical examination have been repeated. There are no changes to the documented history and physical or if so such changes are documented below. Thais Joseph MD 01/18/2024 8:21 Source Note - [employer], SCAN 2 - 01/01/2024 16:24 EDT documented in this encounter OR Notes * OR Surgeon - Chula Whitley MD - 01/18/2024 1017 EDT anterior colporrhaphy, cystoscopy Operative Note Date: 01/18/2024 Location: [facility] OR Name: Martha Benoit, : 1965, Diagnosis Pre-Op Diagnosis Codes: * Cystocele, unspecified [N81.10] * Rectocele [N81.6] Post-op Diagnosis * Cystocele, unspecified [N81.10] * Rectocele [N81.6] Procedures * anterior colporrhaphy, cystoscopy * posterior colporrhaphy Surgeons Panel 1: * Chelsi Rivera MD - Primary * Thais Joseph - Resident - Assisting Panel 2: * Chula Whitley MD - Primary, Thais Joseph --assisting Procedure Summary Anesthesia: General ASA: III Estimated Blood Loss: 20 mL Total IV Fluids: 600mL LDAs: Peripheral IV 01/18/24 0829 Posterior;Right Hand (Active) Wound 01/18/24 Incision Vagina (Active) [REMOVED] Non-Surgical Airway (Removed) Staff: Clinical Office Technician: Devora Pacheco RN Scrub Person: Karyn Sanon MA Patient Digital Publishing Specialist: Lauren Marquez Indications: Martha Benoit is an 58 y.o. female who is having surgery for cystocele and rectocele Procedure Details: The patient was seen in the preoperative area. The risks, benefits, complications, treatment options, non-operative alternatives, expected recovery and outcomes were discussed with the patient. The possibilities of reaction to medication, pulmonary aspiration, injury to surrounding structures, bleeding, recurrent infection, the need for additional procedures, failure to diagnose a condition, and creating a complication requiring transfusion or operation were discussed with the patient. The patient concurred with the proposed plan, giving informed consent. The site of surgery was properly noted/marked if necessary per policy. The patient has been actively warmed in preoperative area. Preopera tive antibiotics have been ordered and given within 1 hours of incision. Venous thrombosis prophylaxis have been ordered including bilateral sequential compression devices. Following Dr. Rivera's portion of the procedure, we grasped the posterior wall of the vagina, starting about 2 cm distal from the apex of the vagina where we had laxity. We injected vasopressin into the posterior wall to create our submucosal planes. Using a blade, we opened up at the midline of the posterior wall. We then created flaps in a sharp fashion out laterally on both sides. The patient did have a very small enterocele as well. With #0 vicryl sutures, we created a pursestring suture to retract the enterocele back into the pelvis. Then with 0 PDS sutures, we re-created the rectovaginal septum pulling the levator muscle across. We used 3 of these and a #1 Vicryl out distally. We tri mmed the redundant vaginal mucosa and closed the vaginal mucosa with a 2-0 Vicryl in a locking fashion. We ensured that 2 fingers could easily insert into the vagina. We ensured that none of the stitcheswent through and through the rectum by performing a digital rectal exam at the end. Complications: None; patient tolerated the procedure well. Disposition: PACU - hemodynamically stable. Condition: stable Specimens:None Implants: none Chula Whitley MD * OR Surgeon - Chelsi Rivera MD - 01/18/2024 0639 EDT OPERATIVE REPORT SERVICE DATE: 01/18/2024 SURGEON: Chelsi Rivera MD CO-SURGEON: Chula Whitley MD ASSISTANTS: Thais Joseph MD PREOPERATIVE DIAGNOSIS: Cystocele. POSTOPERATIVE DIAGNOSIS: Cystocele. PROCEDURES: Anterior colporrhaphy and cystoscopy. ANESTHESIA: General. INTRAVENOUS FLUIDS: 400. URINE OUTPUT: 100 concentrated urine. FINDINGS: On cystoscopy, the bladder mucosa is normal. The ureters are patent. At the completion ofthe repair, there are no sutures through the bladder mucosa. SPECIMENS: None. COMPLICATIONS: None. CONDITION: Good. DISPOSITION: To recovery. NARRATIVE: The patient was taken to the operating room and placed in a supine position. General anesthesia was induced. She was then placed in the stirrups, prepped and draped in the usual fashion. AFoley catheter was placed to gravity drainage. The anterior vaginal wall was grasped with Allis clamps in the midline. This area was injected with dilute vasopressin, then incised. The vaginal mucosawas sharply dissected off of the cystocele. The cystocele was reduced using 0 PDS mattress sutures.There were no sutures placed at the bladder neck. Once the cystocele was reduced, cystoscopy was performed to ensure no injury to the bladder or ureters. The fluid was left in the bladder to aid in a voiding trial in recovery. The excess vaginal mucosa was trimmed and then closed with a 2-0 undyed Vicryl running locked stitch. The case was then turned over to Dr Chula Whitley for the posterior colporrhaphy which will be dictated separately. Unless otherwise noted, there were no complications, no blood loss, no cultures obtained, no specimens removed, and no drains retained. Chelsi Rivera MD / AM Confirmation: [id number] Dictation ID: [id number] cc: documented in this encounter Miscellaneous Notes * Brief Op Note - Thais Joseph - 01/18/2024 1128 EDT Date: 01/18/2024 Location: [facility] OR Name: Martha Benoit, : 1965, Diagnosis Pre-Op Diagnosis Codes: * Cystocele, unspecified [N81.10] * Rectocele [N81.6] Post-op Diagnosis * Cystocele, unspecified [N81.10] * Rectocele [N81.6] Procedures * anterior colporrhaphy, cystoscopy * posterior colporrhaphy Surgeons Panel 1: * Chelsi Rivera MD - Primary * Thais Joseph - Resident - Assisting Panel 2: * Chula Whitley MD - Primary Procedure Summary Anesthesia: General ASA: III Estimated Blood Loss: 20 mL Total IV Fluids: 600 mL LDAs: Wound 01/18/24 Incision Vagina (Active) [REMOVED] Non-Surgical Airway (Removed) Staff: Clinical Office Technician: Devora Pacheco RN Scrub Person: Karyn Sanon MA Patient Digital Publishing Specialist: Lauren Marquez Indications: Martha Benoit is an 58 y.o. female who is having surgery for pelvic organ prolapse Findings: Normal female external genitalia, mild atrophy Grade 3 cystocele, grade 2 rectocele Bilateral Ujs visualized, no bladder or ureter injury appreciated Excellent hemostasis at conclusion of case Complications: None; patient tolerated the procedure well. Disposition: PACU - hemodynamically stable. Condition: stable Specimens Collected: No specimens collected during this procedure. THAIS JOSEPH 01/18/24 12:31 Obstetrics & Gynecology, PGY-2 Pager [phone] documented in this encounter Plan of Treatment Upcoming Encounters Date Type Department Care Team (Late st Contact Info) Description 05/22/2024 10:00 EDT Office Visit [facility] Ankle Program - [address] [place] [address] Ewdige Keller DPM [address] [place] [phone] 07/18/2024 13:00 EDT Procedure visit [facility] Women's Services - [address] [id number] Jessica Murray NP [address] [facility], [address] [place] [address] Scheduled Referrals Name Type Priority Associated Diagnoses Order Schedule PROVIDER FOLLOW-UP INSTRUCTIONS Outpatient Referral Routine Ordered: 01/18/2024 PROVIDER FOLLOW-UP INSTRUCTIONS Outpatient Referral Routine Ordered: 01/18/2024 documented as of this encounter Procedures Procedure Name Priority Date/Time Associated Diagnosis Comments POCT GLUCOSE, INTERFACED Routine 01/18/2024 10:16 EDT COLPORRHAPHY, POSTERIOR, FOR RECTOCELE REPAIR, WITH PERINEORRHAPHY IF INDICATED 01/18/2024 8:28 EDT Cystocele, unspecified Rectocele COLPORRHAPHY, ANTERIOR, FOR CYSTOCELE REPAIR 01/18/2024 8:28 EDT Cystocele, unspecified Rectocele POCT GLUCOSE, INTERFACED Routine 01/18/2024 8:25 EDT documented in this encounter Results * (ABNORMAL) POCT GLUCOSE, INTERFACED (01/18/2024 10:16 EDT) Glucose, POC 172(H) 70 - 100 mg/dL 01/18/2024 10:17 EDT [facility] HN LAB POC COMMENT (GLUCOSE) Test Performed by Nursing Services 01/18/2024 10:17 EDT [facility] Blood CAPILLARY BLOOD / Unknown 01/18/2024 10:16 EDT 01/18/2024 10:17 EDT Thais Nvaarro CRNA POINT OF CARE TEST O RDERABLES Performing Organization Address City/[facility]/ZIP Co de Phone Number [facility] [address] [place] [address] * (ABNORMAL) POCT GLUCOSE, INTERFACED (01/18/2024 8:25 EDT) Glucose, POC 126(H) 70 - 100 mg/dL 01/18/2024 8:26 EDT [facility] HN LAB POC COMMENT (GLUCOSE) Test Performed by Nursing Services 01/18/2024 8:26 EDT [facility] Blood CAPILLARY BLOOD / Unknown 01/18/2024 8:25 EDT 01/18/2024 8:26 EDT Chelsi Rivera MD POINT OF CARE TE ST ORDERABLES Performing Organization Address City/[facility]/ZIP Co de Phone Number [facility] [address] [place] [address] documented in this encounter Visit Diagnoses Diagnosis Cystocele, unspecified Rectocele documented in this encounter Administered Medications Inactive Administered Medications - up to 3 most recent administrations Medication Order MAR Action Action Date Dose Rate Site acetaminophen (TYLENOL) tablet 1,000 mg 1,000 mg, oral, PRN, 1 dose, Starting on Mon01/18/24 at 1400, Until Mon01/18/24 at 1330, Fever, Routine, Recovery (only) acetaminophen (TYLENOL) tablet 500 mg 500 mg, oral, PRE-OP ONCE, 1 dose, On Ava 01/18/24 at 0745, Routine, Preprocedure Given 01/18/2024 8:04 EDT 500 mg atropine 0.1 mg/mL syringe 0.5 mg 0.5 mg, intravenous, PRN, Starting on Mon01/18/24 at 0950, Until Ava 01/18/24 at 1330, Symptomatic HR < 50, Routine, Recovery (only) diphenhydrAMINE (BENADRYL) injection 12.5 mg 12.5 mg, intravenous, PRN, 1 dose, Starting on Mon01/18/24 at 0950, Until Mon01/18/24 at 1330, nausea, Routine, Recovery (only) fentaNYL citrate (PF) injection 25-50 mcg 25-50 mcg, intravenous, EVERY 5 MIN PRN, 4 doses, Starting on Ava 01/18/24 at 0950, Until Ava 01/18/24 at 1330, Pain, Routine, Recovery (only) Given 01/18/2024 10:28 EDT 50 mcg HYDROmorphone (DILAUDID) tablet 2-4 mg 2-4 mg, oral, EVERY 30 MINUTES PRN, 4 doses, Starting on Mon01/18/24 at 0950, Until Mon01/18/24 at 1330, Pain, Mild Pain 1-3, Moderate Pain 4-6, Severe Pain 7-10, max 8mg, Routine, Recovery (only) HYDROmorphone (PF) (DILAUDID) 0.5 mg/0.5 mL syringe 0.5 mg 0.5 mg, intravenous, EVERY 15 MINUTES PRN, 4 doses, Starting on Ava 01/18/24 at 0950, Until Ava 01/18/24 at 1330, Pain, max 2mg, Routine, Recovery (only) lactated ringers (LR) infusion at 75 mL/hr, intravenous, CONTINUOUS, Starting on Mon01/18/24 at 1015, Until Ava 01/18/24 at 1330, Routine, Recovery (only) lactated ringers (LR) infusion at 25 mL/hr, intravenous, CONTINUOUS, Starting on Ava 01/18/24 at 0745, Until Ava 01/18/24 at 1330, Routine, Preprocedure Continued by Anesthesia 01/18/2024 8:37 EDT 25 mL/hr New Bag 01/18/2024 8:30 EDT 25 mL/hr naloxone (NARCAN) injection 0.2 mg 0.2 mg, intravenous, PRN, Starting on Ava 01/18/24 at 0950, Until Ava 01/18/24 at 1330, Opioid Reversal, Routine, Recovery (only) ondansetron (PF) (ZOFRAN) injection 4 mg 4 mg, intravenous, PRN, 1 dose, Starting on Ava 01/18/24 at 0950, Until Ava 01/18/24 at 1330, Nausea, Vomiting, Routine, Recovery (only) oxyCODONE (ROXICODONE) immediate release tablet 5-10 mg 5-10 mg, oral, EVERY 30 MINUTES PRN, 2 doses, Starting on Ava 01/18/24 at 0950, Until Ava 01/18/24 at 1330, Pain, Routine, Recovery (only) Given 01/18/2024 10:28 EDT 5 mg sodium chloride (NS) 0.9 % 30 mL with vasopressin (VASOSTRICT) 10 Units PRN, Starting on Ava 01/18/24 at 0942, Until Ava 01/18/24 at 1010, Intraprocedure Given 01/18/2024 9:42 EDT 30 mL sodium chloride 0.9 % irrigation PRN, Starting on Ava 01/18/24 at 0942, Until Ava 01/18/24 at 1010, Routine, Intraprocedure Given 01/18/2024 9:42 EDT 500 mL documented in this encounter Discontinued Medications Medication Sig Discontinue Reason Start Date End Da te Miscellaneous Medication - See Admin Instructions Boric acid capsules [address] one capsule vaginally HS x 14 days. Call patient when ready. 01/20/2020 01/18/2024 documented as of this encounter Active and Recently Administered Medications Times are shown in EDT. Scheduled Medication Order 01/16/2024 01/17/2024 01/18/2024 acetaminophen (TYLENOL) tablet 500 mg (COMPLETED) 500 mg, oral, PRE-OP ONCE, 1 dose, On Ava 01/18/24 at 0745, Routine, Preprocedure 0804 (Given - Provid er: Padma Castaneda RN) ceFAZolin (ANCEF) syringe 2 g (COMPLETED) 2 g, intravenous, Administer over 5 Minutes, PRE-OP ONCE, 1 dose, On Ava 01/18/24 at 0745, Routine, Preprocedure 0856 (Given - Provid er: Thais Navarro CRNA) Continuous Medication Order 01/16/2024 01/17/2024 01/18/2024 lactated ringers (LR) infusion at 75 mL/hr, intravenous, CONTINUOUS, Starting on Ava 01/18/24 at 1015, Until Ava 01/18/24 at 1330, Routine, Recovery (only) 1015 (Canceled Entry - Provider: [employer] Job User Admin - Comment: Automatically canceled at discontinue of medication order) lactated ringers (LR) infusion at 25 mL/hr, intravenous, CONTINUOUS, Starting on Ava 01/18/24 at 0745, Until Ava 01/18/24 at 1330, Routine, Preprocedure 0830 (New Bag - Prov ider: Padma Castaneda RN)0837 (Continued by Anesthesia - Provider: Thais Navarro CRNA)1015 (Anesthesia Volume Adjustment - Provider: Thais Navarro CRNA) PRN Medication Order 01/16/2024 01/17/2024 01/18/2024 acetaminophen (TYLENOL) tablet 1,000 mg 1,000 mg, oral, PRN, 1 dose, Starting on Ava 01/18/24 at 1400, Until Vaa 01/18/24 at 1330, Fever, Routine, Recovery (only) atropine 0.1 mg/mL syringe 0.5 mg 0.5 mg, intravenous, PRN, Starting on Ava 01/18/24 at 0950, Until Ava 01/18/24 at 1330, Symptomatic HR < 50, Routine, Recovery (only) diphenhydrAMINE (BENADRYL) injection 12.5 mg 12.5 mg, intravenous, PRN, 1 dose, Starting on Ava 01/18/24 at 0950, Until Ava 01/18/24 at 1330, nausea, Routine, Recovery (only) fentaNYL citrate (PF) injection 25-50 mcg 25-50 mcg, intravenous, EVERY 5 MIN PRN, 4 doses, Starting on Ava 01/18/24 at 0950, Until Ava 01/18/24 at 1330, Pain, Routine, Recovery (only) 1028 (Given - Provid er: Lauren Posada RN) HYDROmorphone (DILAUDID) tablet 2-4 mg 2-4 mg, oral, EVERY 30 MINUTES PRN, 4 doses, Starting on Ava 01/18/24 at 0950, Until Ava 01/18/24 at 1330, Pain, Mild Pain 1-3, Moderate Pain 4-6, Severe Pain 7-10, max 8mg, Routine, Recovery (only) HYDROmorphone (PF) (DILAUDID) 0.5 mg/0.5 mL syringe 0.5 mg 0.5 mg, intravenous, EVERY 15 MINUTES PRN, 4 doses, Starting on Ava 01/18/24 at 0950, Until Ava 01/18/24 at 1330, Pain, max 2mg, Routine, Recovery (only) naloxone (NARCAN) injection 0.2 mg 0.2 mg, intravenous, PRN, Starting on Ava 01/18/24 at 0950, Until Ava 01/18/24 at 1330, Opioid Reversal, Routine, Recovery (only) ondansetron (PF) (ZOFRAN) injection 4 mg 4 mg, intravenous, PRN, 1 dose, Starting on Ava 01/18/24 at 0950, Until Ava 01/18/24 at 1330, Nausea, Vomiting, Routine, Recovery (only) oxyCODONE (ROXICODONE) immediate release tablet 5-10 mg 5-10 mg, oral, EVERY 30 MINUTES PRN, 2 doses, Starting on Ava 01/18/24 at 0950, Until Ava 01/18/24 at 1330, Pain, Routine, Recovery (only) 1028 (Given - Provid er: Lauren Posada RN) sodium chloride (NS) 0.9 % 30 mL with vasopressin (VASOSTRICT) 10 Units (CANCELED) PRN, Starting on Ava 01/18/24 at 0942, Until Ava 01/18/24 at 1010, Intraprocedure 0942 (Given - Provid er: Chelsi Rivera MD) sodium chloride 0.9 % irrigation (CANCELED) PRN, Starting on Ava 01/18/24 at 0942, Until Ava 01/18/24 at 1010, Routine, Intraprocedure 0942 (Given - Provid er: Chelsi Rivera MD - Comment: via cysto) documented in this encounter Orders Medications Ordered That Alex ht Not Have Been Administered Count Last Ordered Date First Ordered Date acetaminophen (TYLENOL) tablet 1,000 mg 1 0 01/18/2024 atropine 0.1 mg/mL syringe 0.5 mg 1 024 ceFAZolin (ANCEF) syringe 2 g 1 01/18/2024 dextrose 50 % solution 12.5 g 1 01/18/2024 diphenhydrAMINE (BENADRYL) i njection 12.5 mg 1 01/18/2024 glucagon injection 1 mg 1 01/18/2024 HYDROmorphone (DILAUDID) tablet 2-4 mg 1 HYDROmorphone (PF) (DILAUDID ) 0.5 mg/0.5 mL syringe 0.5 mg 1 01/18/2024 ibuprofen (MOTRIN) tablet 600 mg 1 01/18/20 lactated ringers (LR) infusion 1 01/18/2024 lidocaine (PF) 10 mg/mL (1 % ) injection 2 mg 1 01/18/2024 naloxone (NARCAN) injection 0.2 mg 1 2023 ondansetron (PF) (ZOFRAN) injection 4 mg 1 01/18/2024 Diet Count Last Ordered Date First Orde red Date DISCHARGE DIET 1 01/18/2024 Nursing Count Last Ordered Date First Orde red Date ACTIVITY INSTRUCTIONS 1 01/18/2024 Discharge Count Last Ordered Date First Orde red Date DISCHARGE PATIENT 1 01/18/2024 documented in this encounter Care Teams [employer] Man Relationship Specialty Start Date End Date Katia Haywood [address] [place] [id number] PCP - General Family Medicine - Primary Care 06/20/23 documented as of this encounter
--- OUTSIDE RECORDS SUMMARY | 2024-05-15 11:00 | XMS_ITS | Encounter Summary ---
Author Organization [facility] Address [address] [place] [address] Care Team Providers Care Stitcher Feeder Name Role Phone Katia Haywood Primary Care Provider [phone] Reason for Visit * Reason Onset Date Comments Post-OP Follow Up 01/22/2024 Encounter Details Date Type Department Care Team (Late st Contact Info) Description 01/22/2024 Telephone [facility] Pelvic Medicine and Reconstructive Surgery - Medical Office [facility] [address] [place] [address] Solange Ye RN Post-OP Follow Up Social History Tobacco Use Types Packs/Day Years [...] :01 EDT documented as of this encounter Functional Status Functional Status Response [...] No 03/11/2016 documented as of this encounter Miscellaneous Notes * Telephone Encounter - Solange Ye, RN - 01/22/2024 1874 EDT POD #4 A&P repair. Pt reports that she is doing well. Her pain is controlled with her OTC medication and Rx'd pain medication. Pt voiding without issues. Her bowels are moving, but she was not able to tolerate Miralax. She got some Ex-lax tablets and that was very helpful. She denies any post op complications. Advised to call if any arise prior to post op OV. The patient indicates understanding of these issues and agrees with the plan. documented in this encounter Plan of Treatment Upcoming Encounters Date Type Department Care Team (Late st Contact Info) Description 05/22/2024 10:00 EDT Office Visit [facility] Foot & Ankle Program - [address] [place] [address] Ewdige Keller [address] [phone] 07/18/2024 13:00 EDT Procedure visit [facility] Women's Services - [facility] [address] [place], [place] [id number] Jessica Murray NP [address] [facility], [address] [place] [address] documented as of this encounter Visit Diagnoses Not on filedocumented in this encounter Care Teams Stitcher Feeder Relationship Specialty Start Date End Date Katia Haywood [address] [place] [id number] PCP - General Family Medicine - Primary Care 06/20/23 documented as of this encounter
--- OUTSIDE RECORDS SUMMARY | 2024-05-15 11:00 | XMS_ITS | Continuity of Care Document ---
Author Organization [place] - [facility], [facility] Address [address] [place] [address] Assessment Encounter Date Assessment Date Assessment LastModified by Organization Details LastModified Time 05/15/2024 05/15/2024 The patient presents with urinary symptoms and concerns about diabetes management. She has been previously treated with Bactrim and cephalexin for her urinary symptoms, but experienced a recurrence. The patient is also using a prescribed cream for vaginal atrophy. Her diabetes is managed with Invokana, which has been effective in controlling her blood sugar levels. Not available 05/15/2024 10:46:33 Plan of Treatment Reminders Order Date Submit Date Provider Last Modified By Organization Details Last Modified Time Details Appointments Acute 30 2023 10:10A M ERIC PATRICIA Not available Not available Not available Lab urinalysi s, dipstick 2023 024 [email or web address] [facility], [address] [facility], [place], [address], 05/15/2024 10:12:53 culture, urine + sensitivi ty 2023 024 [email or web address] [facility] (Registration ), [address] [place] [address] [place], [address], 05/15/2024 10:40:39 Referral None recorded. Procedures None recorded. Surgeries None recorded. Imaging None recorded. Medication Orders None recorded. Patient TargetsNo targets recorded. Patient Instructions Encounter Date Encounter Id Patient Instructions Last Modified By Organization Details Last Modified Time 05/15/2024 [id number] - Continue using the prescribed cream for vaginal atrophy as directed - Monitor blood sugar levels and report any significant changes - Await results of urine culture for further management of urinary symptoms - Keep in contact with the physician regarding any changes in symptoms or concerns [email or web address] Not available 05/15/2024 10:40:13 Reason for Referral None Reported. Results Created Date Observation Date Name Description Value Unit Range Abnormal Flag LastModifiedBy Organization Detail LastModifiedTime 05/15/2005/15/2024 urina lysis , dipst ick Leukocytes Trace Not Available [facility] [address] [place], [address], 05/15/2024 10:11:01 05/15/20 24 05/15/2024 urina lysis , dipst ick Nitrite negati ve Not Available [facility] [address] [place], [address], 05/15/2024 10:11:01 05/15/20 24 05/15/2024 urina lysis , dipst ick Urobilinogen .2 Not Available [facility] [address] [place], [address], 05/15/2024 10:11:01 05/15/20 24 05/15/2024 urina lysis , dipst ick Protein Negati ve Not Available [facility] [address] [place], [address], 05/15/2024 10:11:01 05/15/20 24 05/15/2024 urina lysis , dipst ick pH 6.0 Not Available [facility] [address] [place], [address], 05/15/2024 10:11:01 05/15/20 24 05/15/2024 urina lysis , dipst ick Blood Negati ve Not Available [facility] [address] [place], [address], 05/15/2024 10:11:01 05/15/20 24 05/15/2024 urina lysis , dipst ick Specific Wayne 1.010 Not Available [facility] [address] [place], [address], 05/15/2024 10:11:01 05/15/20 24 05/15/2024 urina lysis , dipst ick Ketone Negati ve Not Available [facility] [address] [place], [address], 05/15/2024 10:11:01 05/15/2005/15/2024 urina lysis , dipst ick Bilirubin Small Not Available [address], [address], 05/15/2024 10:11:01 05/15/20 24 05/15/2024 urina lysis , dipst ick Glucose 2000+ Not Available [facility] [address] [place], [address], 05/15/2024 10:11:01 05/15/20 24 05/15/2024 urina lysis , dipst ick Appearance Slight ly Cloudy Not Available [address], [address], 05/15/2024 10:11:01 05/15/20 24 05/15/2024 urina lysis , dipst ick Color Yellow Not Available [address], [address], 05/15/2024 10:11:01 Result Notes None recorded. Problems Name Status Onset Date Resolution Date Notes Provider Name and Address Organization Details Recorded Time Amnesia Active Efren pichardo [place] - [facility] 18:56:28 Gastroesophage al reflux disease without esophagitis Active Efrenalisha Orozco [facility]. 4 19:01:40 Senile hyperkeratosis Completed 12/27/2023 Problem Code: L82.1; Problem Code Type: ICD-10; Efren Orozco [facility] 4 19:08:33 Hypothyroidism Active Efrenalisha Orozco [facility] 4 19:05:19 Renal disorder due to type 2 diabetes mellitus [facility] 4 19:09:47 Other idiopathic peripheral neuropathy NOS Active Not Available [facility] 3 04:42:37 Obesity [facility] 4 19:06:06 Vitamin D deficiency [facility] 4 19:07:32 History of urinary stone [facility] 4 19:02:58 Chronic pain [facility] 4 18:59:02 Retinopathy due to type 2 diabetes mellitus Completed 12/27/2023 Problem Code: E11.319; Problem Code Type: ICD-10; Efren Orozco [facility] 4 19:09:39 Elevated blood-pressure reading without diagnosis of hypertension Active 2017 Efrenalisha Orozco [facility] 4 19:00:20 Counseling Completed 201702/26/2018 Problem Code: Z71.89; Problem Code Type: ICD-10; Not Available [facility] 3 04:42:38 Blood chemistry outside reference range Completed 201512/27/2023 Problem Code: R79.89; Problem Code Type: ICD-10; Efren Orozco [facility] 4 18:57:49 Psoriasis Active 2017 [facility] 4 19:07:20 History of bariatric surgical procedure Active [facility] 4 19:02:28 History of gynecological disorder Active [facility] 4 19:02:48 History of transient ischemic attack Active [facility] 4 19:03:02 Dysplasia of vagina Active [facility] 4 19:00:12 Cervical intraepithelia l neoplasia grade 1 Completed 12/27/2023 Problem Code: N87.0; Problem Code Type: ICD-10; [facility] 4 18:58:51 Pain in lower limb Active 2017 [facility] 4 19:07:05 Long-term current use of drug therapy Active 2017 [facility] 4 19:05:24 Acute stress disorder Completed 201702/19/2019 Problem Code: F43.0; Problem Code Type: ICD-10; Not Available [facility] 3 04:42:40 Chronic ulcer of foot Completed 201701/17/2019 11/17/2018 - Comments only - Ruth Munoz APRN, EVENT MARKETING REPRESENTATIVE-BC - Improving. Continues to follow with podiatry. Problem Code: L97.529; Problem Code Type: ICD-10; Not Available [facility] 3 04:42:40 Swelling Active 2018 [facility] 4 19:07:48 Candidiasis Active 2018 under breasts [facility] 4 18:58:12 Foot ulcer due to type 2 diabetes mellitus Active 2018 [facility]. 4 19:01:31 Family disruption Active 2018 Efren Orozco [facility] 4 19:00:34 [facility] ear [facility] 19:06:35 Disorder of ear Completed 201907/10/2020 Problem Code: H93.8x9; Problem Code Type: ICD-10; Not Available [facility] 3 04:42:41 Disorder of sacrum Completed 202002/13/2021 Not Available [facility] 3 04:42:41 Cellulitis of finger Completed 202003/07/2021 02/05/2021 - Comments only - Ruth Munoz BUSINESS DEVELOPMENT COORDINATOR, EVENT MARKETING REPRESENTATIVE-BC - L 3rd finger Advised soaking 5x daily for 20 minutes at a time in warm water with epsom salts. -Patient adamant that she would like to get abx, and is very anxious that infection will worsen. -We agreed that she will try soaking 4-5x during the rest of today, and if no improvement or worsening sx tomorrow can start Keflex - Rx sent. However, should continue soaking finger even if she does start abx. -Follow up promptly with worsening sx or lack of improvement. Problem Code: L03.019; Problem Code Type: ICD-10; Not Available [facility] 3 04:42:41 Genitourinary symptoms Completed 202003/07/2021 Problem Code: R39.9; Problem Code Type: ICD-10; Not Available [facility] 3 04:42:41 Myoneural disorder Active 2020 Efren pichardo [facility], [facility] 4 19:05:56 Anorectal disorder Completed 202005/07/2021 Problem Code: K62.89; Problem Code Type: ICD-10; Not Available [facility] 3 04:42:42 Family history of malignant neoplasm of digestive organ Completed 202012/27/2023 Problem Code: Z80.0; Problem Code Type: ICD-10; [facility] 19:01:22 Disorder of skin and/or subcutaneous tissue Completed 202006/17/2021 Problem Code: L98.9; Problem Code Type: ICD-10; Not Available [facility] 3 04:42:42 Digestive system finding Completed 202012/27/2023 Problem Code: R19.8; Problem Code Type: ICD-10; Efren Orozco [facility] 4 18:59:58 History of polyp of colon Completed 201712/27/2023 Problem Code: Z86.010; Problem Code Type: ICD-10; Efren Orozco [facility] 4 19:04:48 Genitourinary symptoms Completed 202103/09/2022 Problem Code: R39.9; Problem Code Type: ICD-10; Not Available [facility] 3 04:42:43 Acute pharyngitis Completed 202104/08/2022 Problem Code: J02.9; Problem Code Type: ICD-10; Not Available [facility] 3 04:42:43 Streptococcal sore throat Completed 202104/09/2022 Problem Code: J02.0; Problem Code Type: ICD-10; Not Available [facility] 3 04:42:43 Vaccine declined by patient Active 2021 Efren Orozco [facility] 4 19:07:41 Pain of left knee joint Active 2022 Efren Orozco [facility]. 4 19:07:11 Pain of right knee joint Completed 202202/17/2023 Problem Code: M25.561; Problem Code Type: ICD-10; Not Available [facility] 3 04:42:43 Proteinuria Completed 202212/27/2023 Problem Code: R80.9; Problem Code Type: ICD-10; [facility] 4 19:10:36 Candidiasis of vagina Completed 201904/06/2023 Problem Code: B37.3; Problem Code Type: ICD-10; Not Available [facility] 3 04:42:44 Pain in finger of left hand Completed 202101/04/2023 Problem Code: M79.645; Problem Code Type: ICD-10; Not Available [facility] 3 04:42:44 Counseling Completed 201711/17/2018 Problem Code: Z71.89; Problem Code Type: ICD-10; Not Available [facility] 3 04:42:44 Acute non-infective otitis externa Completed 201702/19/2019 Problem Code: H60.502; Problem Code Type: ICD-10; Not Available [facility] 3 04:42:44 Chronic sinusitis Completed 202204/06/2023 Problem Code: J32.9; Problem Code Type: ICD-10; Not Available [facility] 3 04:42:45 Polyneuropathy Completed 201711/17/2018 Problem Code: G62.9; Problem Code Type: ICD-10; Not Available [facility] 3 04:42:45 Acute conjunctivitis Completed 202204/06/2023 Problem Code: H10.30; Problem Code Type: ICD-10; Not Available [facility] 3 04:42:45 of relative Active 2022 Efrenalisha RockOrozcoroberto pichardo [facility]. 4 18:59:10 Diabetes mellitus Active 2023 Efrenalisha RockOrozcoroberto pichardo [facility]. 4 18:59:17 Ankle edema Active 2023 Efrenalisha RockOrozcoroberto pichardo [facility]. 4 18:56:40 Parathyroid hormone measurement Active 2015 [facility] 4 18:57:42 Dysplasia of cervix Active [facility] 4 18:58:46 Abdominal pain Active 2020 [facility] 4 18:59:54 Family history of cancer of colon Active 2020 Efren Orozco [facility]. 4 19:01:18 Adenomatous polyp of colon Active 2017 Tubular adenoma 2018. Poor prep 08/06/21; Cologuard neg 01/09/22. [facility] 4 19:04:24 Seborrheic keratosis Active Efrenalisha Orozco [facility] 4 19:08:30 Retinopathy due to diabetes mellitus Active Efrenalisha Orozco [facility] 4 19:09:31 Albuminuria Active 2022 [facility] 4 19:10:34 Cough Active 2023 DILLAN MORAN, SHIRA [address], [place], [address] , [facility] 4 16:33:03 Prolapse of uterus with rectocele Active [address], [place], [address] , [facility] 4 15:09:54 Hereditary motor and sensory neuropathy Active 2023 YESI PALMER, [facility]. 4 13:22:07 Neuropathy due to diabetes mellitus Active 2023 JOAN CARLSON MA null, [facility] 4 13:22:22 Acute urinary tract infection Active [address], [place], [address] , [facility] 4 13:23:31 Dysuria Active [address], [facility] [address] , [facility] 4 13:30:02 Dyslipidemia Active 2023 JOAN CARLSON MA null, [facility] 4 10:57:35 Urogenital finding Active [address], [facility] [address] [facility] 4 10:44:09 Urinary symptoms Active [address], [facility] [address] , [facility] 4 10:46:01 Problem Notes None recorded. Medical Equipment None Reported. Allergies No known drug allergies Medications Name Sig Start Date Stop Date Status Note LastModified by Organization Details LastModified Time bella miranda complete chw TAKE 1 TABLET BY MOUTH TWICE DAILY 12/05 completed Not Available Not Available Not Available cyclobenz aprine 10 mg tablet TAKE ONE TABLET BY MOUTH EVERY DAY AT BEDTIME NEEDED FOR PAIN active Not Available Not Available No t Available furosemid e 40 mg tablet Once daily per other provider - unclear who gives Rx. TAkes PRN for edema 12/14 completed Not Available Not Available Not Available fluconazo le 100 mg tablet one tab as needed 2017 active Not Available Not Available Not Avai lable metformin 500 mg tablet TAKE ONE TABLET BY MOUTH THREE TIMES A DAY active Not Available Not Available No t Available terconazo le 0.4 % vaginal cream Apply as directed for vulvovag inal candidia sis 07/25 completed Not Available Not Available Not Available biotin 5 mg capsule Take 1 cap by mouth daily 05/15 completed Not Available Not Available Not Available fluconazo le 150 mg tablet TAKE 1 TABLET BY MOUTH NOW AND MAY REPEAT IN 72 HOURS IF NO IMPROVEM ENT active Not Available Not Available No t Available benzonata te 200 mg capsule TAKE ONE CAPSULE BY MOUTH THREE TIMES A DAY active Not Available Not Available No t Available glipizide ER 10 mg tablet, extended release 24 hr TAKE ONE TABLET BY MOUTH TWICE A DAY active Not Available Not Available No t Available glipizide 10 mg tablet Take 1 tab by mouth twice daily 2017 active Not Available Not Available Not Avai felisha Bella es Complete (iron) chewable tablet Take 2 tablet by mouth once a day 07/21 completed Not Available Not Available Not Available penicilli n V potassium 500 mg tablet Take 1 tablet by mouth twice a day 03/19 completed Not Available Not Available Not Available sulfameth oxazole 800 mg-trimet hoprim 160 mg tablet TAKE ONE TABLET BY MOUTH EVERY 12 HOURS active Not Available Not Available No t Available triamcino lone acetonide 0.1 % topical cream APPLY TO AFFECTED AREA(S) TWO TIMES A DAY NEEDED active Not Available Not Available No t Available amoxicill in 500 mg tablet 1 tablet by mouth twice a day 04/06 completed Not Available Not Available Not Available levothyro xine 25 mcg tablet TAKE ONE TABLET BY MOUTH EVERY DAY active Not Available Not Available No t Available baclofen 20 mg tablet TAKE ONE TABLET BY MOUTH FOUR TIMES A DAY NEEDED FOR MUSCLE SPASMS active Not Available Not Available No t Available cyanocoba italo (vit B-12) 500 mcg tablet TAKE ONE TABLET BY MOUTH EVERY DAY active Not Available Not Available No t Available oxycodone -acetamin ophen 10 mg-325 mg tablet TAKE ONE TABLET BY MOUTH SIX TIMES DAILY NEEDED active Not Available Not Available No t Available baclofen 10 mg tablet TAKE ONE TABLET BY MOUTH FOUR TIMES A DAY 09/05 completed Not Available Not Available Not Available cephalexi n 500 mg capsule TAKE ONE CAPSULE BY MOUTH TWICE A DAY FOR 5 DAYS active Not Available Not Available No t Available erythromy saloni 5 mg/gram (0.5 %) eye ointment Apply 1 inch ribbon to affected eye(s) every four hours as directed 10/11 completed Not Available Not Available Not Available ferrous sulfate 325 mg (65 mg iron) tablet one tab once weekly 02/05 completed Not Available Not Available Not Available triamcino lone acetonide 0.1 % topical ointment Apply a small amount to skin three times a day as needed 06/30 completed Not Available Not Available Not Available lidocaine 5 % topical patch APPLY ONE PATCH TO EACH LEG ONCE DAILY NEEDED. 12 HOURS ON 12 HOURS OFF active Not Available Not Available No t Available Polytrim 10,000 unit-1 mg/mL eye drops Instill 1 drop into both eyes four times a day for 7 days 04/03 completed Not Available Not Available Not Available gabapenti n 300 mg capsule TAKE TWO CAPSULES BY MOUTH EVERY DAY AT BEDTIME active Not Available Not Available No t Available omeprazol e 20 mg capsule,d elayed release TAKE ONE CAPSULE BY MOUTH EVERY DAY active Not Available Not Available No t Available Banophen 25 mg capsule TAKE ONE CAPSULE BY MOUTH THREE TIMES A DAY NEEDED FOR ITCHING 09/21 completed Not Available Not Available Not Available cephalexi n 500 mg tablet Take 1 tablet by mouth three times a day 03/10 completed Not Available Not Available Not Available furosemid e 20 mg tablet TAKE ONE TABLET BY MOUTH EVERY DAY NEEDED active Not Available Not Available No t Available ergocalci ferol (vitamin D2) 1,250 mcg (50,000 unit) capsule TAKE ONE CAPSULE BY MOUTH ONCE WEEKLY` active Not Available Not Available No t Available nystatin 100,000 unit/gram topical powder APPLY TO AFFECTED AREA(S) THREE TIMES A DAY active Not Available Not Available No t Available estradiol 0.01% (0.1 mg/gram) vaginal cream PLACE 0.5 GRAMS VAGINALL Y TWICE A WEEK active Not Available Not Available No t Available Cortispor in-TC 3.3 mg-3 mg-10 mg-0.5 mg/mL ear drops,fritz pension 03/11 completed Not Available Not Available Not Available fluticaso ne propionat e 50 mcg/actua tion nasal spray,fritz pension 1 spray into both nostrils twice a day 2019 active Not Available Not Available Not Avai lable amoxicill in 875 mg-potass ium clavulana te 125 mg tablet Take 1 tablet by mouth twice a day. 01/30 completed Not Available Not Available Not Available Ventolin HFA 90 mcg/actua tion aerosol inhaler INHALE TWO PUFFS BY MOUTH EVERY 4 HOURS NEEDED active Not Available Not Available No t Available Benadryl Allergy 25 mg tablet Take 1 tablet by mouth three times a day as needed for itching 10/21 completed Not Available Not Available Not Available Novolog Mix 70-30 FlexPen U-100 Insulin 100 unit/mL subcutane ous pen INJECT 20 TO 30 UNITS SUBCUTAN EOUSLY THREE TIMES A DAY active Not Available Not Available No t Available Restasis 0.05 % eye drops in a dropperet te PLACE ONE DROP INTO IN EACH EYE TWO TIMES A DAY active Not Available Not Available No t Available Acetasol HC 1 %-2 % ear drops Instill 3 to 5 drops in ear every 4 to 6 hours with cotton wick inserted ; after cotton wick removed, instill 5 drops 3 or 4 times daily. 03/06 completed Not Available Not Available Not Available nitrofura ntoin monohydra te/macroc rystals 100 mg capsule TAKE ONE CAPSULE BY MOUTH TWICE A DAY 12/14 completed Not Available Not Available Not Available BD Ultra-Fin e Short Pen Needle 31 gauge x 5/16 TEST TWO TIMES A DAY DIRECTED active Not Available Not Available No t Available Enbrel SureClick 50 mg/mL (1 mL) subcutane ous pen injector Inject 1 pen injector subcutan eously once a week 05/12/22- start with 50 mg Q3-4 days x 3 months, then Qweek 07/27 completed [facility] Not Available Not Available Not Available Multivita l 0.4 mg-162 mg-18 mg tablet 1 tab qd, chewable 02/19 completed Not Available Not Available Not Available FreeStyle Lite Meter kit TEST TWO TIMES A DAY active Not Available Not Available No t Available FreeStyle Lite Strips USE ONE TEST STRIP TO TEST BLOOD SUGAR TWO TIMES A DAY active Not Available Not Available No t Available alpha lipoic acid 100 mg capsule 600mg BID active Not Available Not Available No t Available Humalog KwikPen (U-100) Insulin 100 unit/mL subcutane ous sliding scale prn if BG above 180 while on Novolog 70/30, based on 1 unit : 20 BG ratio 12/16 completed per endo Not Available Not Available Not Available omeprazol e 20 mg tablet,de layed release Take 1 tablet by mouth once a day 2023 active Not Available Not Available Not Avai lable cyanocoba italo (vit B-12) 500 mcg lozenges one tab every day active per endo Not Available Not Available No t Available Ginetteintston es Complete (iron) 18 mg iron chewable tablet TAKE 1 TABLET BY MOUTH TWICE DAILY 12/05 completed Not Available Not Available Not Available Invokana 100 mg tablet Take 1 tablet by mouth daily 2016 active Not Available Not Available Not Avai lable Invokana 300 mg tablet TAKE ONE TABLET BY MOUTH EVERY DAY active Not Available Not Available No t Available cyanocoba italo (vit B-12) 2,000 mcg tablet Take 1 tab by mouth every other day 2020 active per endo Not Available Not Available Not Avgayle Pengliviaton es Complete chewable tablet take 2 tablets a day 2023 active Not Available Not Available Not Avai lable Cosentyx 300 mg/2 Syringes (150 mg/mL) subcutane ous Inject 2 syringe subcutan eously once a month Rx by derm 05/16 completed Not Available Not Available Not Available Cosentyx Pen 300 mg/2 Pens (150 mg/mL) subcutane ous active Not Available Not Available Not Available Qvar RediHaler 80 mcg/actua tion HFA breath activated aerosol INHALE TWO PUFFS BY MOUTH TWICE A DAY active Not Available Not Available No t Available Humira(CF ) 10 mg/0.1 mL subcutane ous syringe kit Rx by derm 07/25 completed Not Available Not Available Not Available baclofen 5 mg tablet Take one tablet 4x per day by mouth together with 10mg tablet. 09/05 completed Not Available Not Available Not Available Sutab 1.479-0.1 88-0.225 gram tablet DOSE 1: TAKE 12 TABLETS WITH 16 OUNCES OF WATER, WITH ADDITION AL 32 OUNCES OF WATER; DOSE 2: TAKE 12 TABLETS WITH 16 OUNCES OF WATER FOLLOWE 09/21 completed Not Available Not Available Not Available Bella miranda Complete (ferrous sulfate) 10 mg iron chewable tablet Take by oral route for 90 days. 12/28 completed Not Available Not Available Not Available Vitals Date Recorded Body height Body mass index (BMI) Body weight Oxygen saturation Oxygen saturation in Arterial blood by Pulse oximetry Heart rate Body temperature Systolic blood pressure Diastolic blood pressure Provider Name and Address Organization Details Last Updated DateTime 4 157.48 cm 28.9 kg/m2 53012.5 9 g 98 % 98 % 83 /min 97.5 [degF] 110 mm[Hg] 72 mm[Hg] SOURAV WAYNE MA [facility] 4 10:08:16 Social History Question Answer Notes LastModified by Organizat ion Details LastModified Time Tobacco Smoking Status Never Smoker Margi Og RN [facility], [facility] 09/21/2023 10:52:50 What Was The Date Of Your Most Recent Tobacco Screening? 12/29/2023 [email or web address] Information not available 12/29/2023 Has Tobacco Cessation Counseling Been Provided? No [email or web address] Information not available 12/29/2023 Do You Or Have You Ever Used Any Other Forms Of Tobacco Or Nicotine? No [email or web address] Information not available 12/29/2023 Sex: Female Functional Status None recorded. Mental Status None recorded. Family History Relationship Description Onset Age of this Age Resolved Age Notes Father Family history of malignant neoplasm colon Father Family history of stroke Father Family history of diabetes mellitus type 1 Sister Family history of malignant neoplasm cervical Sister Family history of diabetes mellitus type 1 Unspecified Relation Family history of diabetes mellitus type 1 Relative: 'Aunt'; Unspecified Relation Family history of diabetes mellitus type 1 Relative: 'Uncle'; Brother Family history of diabetes mellitus type 1 Mother Family history of diabetes mellitus type 1 Notes:*Problem: Strong FHx T ype 2 DM Father with hx of stroke Brother with stage 4 CKD *Procedure Description: Family History of Other Medical Problems*Relative: Father *Problem: neuropathy *Procedure Description: Family History of Other Medical Problems*Relative: Sister *Problem: neuropathy Medical History No medical history recorded. Gynecological HistoryNo gynecological history recorded. Obstetrics History GPAL:G 0 P 0 0 0 0 Immunizations Vaccine Type Date Status Provider Name and Address Organization Details Recorded Time pneumococcal polysaccharide PPV23 09/10/2014 completed Not Available [employer] 2022 06:13:57 Past Encounters Encounter ID Performer Location Encounter Start Date Encounter Closed Date Diagnosis/Indication Diagnosis SNOMED-CT Code [id number] [address] [address] 04/23/2024 12:45:50 04/23/2024 13:37:58 Acute urinary tract infection [id number] [address] 05/15/2024 09:49:00 05/15/2024 10:38:47 Urinary symptoms [id number] Diabetes mellitus [id number] 09 Health Concerns Section Related Observation LastModified by Organization Detai ls LastModified Time None Recorded Concern Status LastModified by Organization Details LastModified Time None Recorded Payers Encounter Date Sequence Insurance Name Policy Number Policy Lema Covered Member ID Lema Member ID Guarantor Name 05/15/2024 1 [facility] (MEDICAID) Martha Benoit [id number] Martha Benoit Notes Date Note Type Note Provider Name and Address Organization Details Recorded Time 05/15/2024 text/html HPI Notes: Rizwana posadas reports urinary symptoms and concerns about diabetes management. Unspecified symptoms and signs involving the genitourinary system: The 58-year-old female patient reports having urinary symptoms, including pain while urinating and urinary frequency. She has been previously treated with Bactrim and cephalexin. She reports a brief period of relief following treatment but experienced a recurrence of symptoms yesterday. The patient is currently using a prescribed cream for vaginal atrophy. Diabetes management: The patient is a diabetic and is currently on Invokana, which has helped control her blood sugar levels better than metformin. Had recent telehealth with endocrine and discussed the possibility of the Invokana causing urinary symptoms Patient denies any fever, chills, Shortness of breath, chest pain, N/V/D. Patient is reporting some dysuria, frequency and a feeling like pressure/fullness in her bladder yesterday when making appt, symptoms have resolved today [place] [address] [place], [address], [facility]. 05/15/2024 10:46:54 OBGyn Episode No OBEpisode recorded.
--- OUTSIDE RECORDS SUMMARY | 2024-05-15 11:00 | XMS_ITS | Encounter Summary ---
Author Organization [facility] Address [address] [place] [address] Care Team Providers Care Shipping Weigher Name Role Phone Katia Haywood Primary Care Provider [phone] Reason for Visit * Reason Comments Medications Refill Encounter Details Date Type Department Care Team (Late st Contact Info) Description 04/05/2024 Refill [facility] Pelvic Medicine and Reconstructive Surgery - Medical Office Building [address] [address] Chelsi Rivera MD [address] [facility] Medical Office [facility], [address] [phone] Medications Refill Social History Tobacco Use Types Packs/Day Years Used Date Smoking Tobacco: Never Passive Smoke Exposure: Never Smokeless Tobacco: Never Alcohol Use Standard [...] No 03/11/2016 documented as of this encounter Ordered Prescriptions Prescription Sig Dispensed Refills Start Date End Da te estradioL (ESTRACE) 0.01 % (0.1 mg/gram) vaginal cream Place 0.5 g vaginally twice a week. 42.5 g 3 04/08/2024 documented in this encounter Miscellaneous Notes * Telephone Encounter - Allie Eng RN - 04/05/2024 1450 EDT Medication Refill Request Pharmacy Request Medication/Dose/Route/Frequency: Estradiol 0.01% vaginal cream; 0.5 grams PV 2 times/week Pt completely out: Unknown Last office visit: 02/14/24 Pending visit: No If appointment needed-message left/appointment made: N/A Pharmacy confirmed:Yes Amount filled/# of refills: 42.5 grams with 3 RF, to be used 2x/week as specified in NEIDA note documented in this encounter Plan of Treatment Upcoming Encounters Date Type Department Care Team (Late st Contact Info) Description 05/22/2024 10:00 EDT Office Visit [facility] Foot [facility] Ankle Program - [address] [address] Edwige Keller [address] [address] 07/18/2024 13:00 EDT Procedure visit [facility] Women's Services - [facility] [address] [place] [address] Jessica Murray NP 111 [facility], [address] [place] [address] documented as of this encounter Visit Diagnoses Not on filedocumented in this encounter Discontinued Medications Medication Sig Discontinue Reason Start Date End Da te estradioL (ESTRACE) 0.01 % (0.1 mg/gram) vaginal cream Place 0.5 g vaginally three times a week. 03/15/2023 04/05/2024 documented as of this encounter Care Teams Shipping Weigher Relationship Specialty Start Date End Date Katia Haywood [address] [phone] PCP - General Family Medicine - Primary Care 06/20/23 documented as of this encounter
--- OUTSIDE RECORDS SUMMARY | 2024-05-15 11:00 | XMS_ITS | Encounter Summary ---
Author Organization [facility] Address [address] [place] [address] Care Team Providers Care Call Center Operator Name Role Phone Katia Haywood Primary Care Provider [phone] Reason for Visit * Auth/Cert (Routine) Specialty Diagnoses / Procedures Referred By Contpaige t Referred To Contact Diagnoses Cystocele, unspecified Rectocele Procedures GA ANTERIOR COLPORRAPHY RPR CYSTOCELE W/CYSTO GA POST COLPORRHAPHY RECTOCELE W/WO PERINEORRHAPHY anterior colporrhaphy, cystoscopy posterior colporrhaphy Referral ID Status Reason Start Date Expiration Date Visits Re quested Visits Authorized [id number] 1 1 Encounter Details Date Type Department Care Team (Late st Contact Info) Description 01/18/2024 8:37 EDT Anesthesia Event [facility] OR [address] [place], [place] [id number] Gelacio Cespedes MD [address] [place] [phone] Thais Navarro CRNA 111 [facility] 2 [place] [address] Anesthesia Record Procedure Summary Procedure Name Responsible Anesthesiologist Anesthesia Start Time Anesthesia Stop Time anterior colporrhaphy, cystoscopy (Vagina ) Gelacio Cespedes MD 01/18/24 0837 01/18/24 1015 Events Date Time Event Comment 01/18/2024 0837 An Start The patient was re-evaluated immediately before moderate or deep sedation use, before anesthesia induction, or before the anesthesia procedure. 0839 An Start Data 0844 An Induction The patient was reevaluated immediately before moderate or deep sedation use and before anesthesia induction. 0847 An Intubation 0856 Anesthesia Ready 1008 An Extubation Great resp mec hs, TV> 1300, soft bite block in, suctioned, extubation uneventful, to PACU with NC on, comfortable 1010 an stop data 1015 Handoff to RN I completed my handoff to the receiving nurse during which we: 1. Identified the patient 2. Identified the responsible provider 3. Reviewed the pertinent medical history 4. Discussed the surgical course 5. Reviewed intra-op anesthesia management and issues during anesthesia 6. Set expectations for post-procedure period 7. Allowed opportunity for questions and acknowledgement of understanding. 1015 An Stop Meds Name Total fentanyl citrate (PF) injection 100 mcg ondansetron (PF) (ZOFRAN) injection 4 mg lidocaine 2% (PF) injection glass vial 6 0 mg phenylephrine 1 mg/10 mL pre -filled SYRINGE (Bolus or short duration infusion) 1,505 mcg propOFol (DIPRIVAN) injection 393,310 mc g rocuronium 10 mg/mL vial 50 mg sugammadex 100 mg/mL 2 mL vial 150 mg ceFAZolin (ANCEF) syringe 2 g 2 g dexmedetomidine injection - vial 8 mcg lactated ringers (LR) infusion 600 mL * Agents Name Insp Sevoflurane Exp Sevoflurane O2 N2O Air * Blood No blood administrations on file. Lines, Drains, and Airways Type Details Placement Removal Wound 01/18/24; 0939; Inci ml; Vagina; Incisions for anterior & posterior repairs; N 01/18/24 0939 by Devora Pacheco, RN Peripheral IV 01/18/24; 0829; 02/13; 20; 1.25; Posterior, Right; Hand; Inserted by RN, Documenting on behalf of someone else (enter name) (Ramon CARDONA); 3; None; 2% Chlorhexidine with IPA; 01/18/24; 1131 01/18/24 0829 by Padma Castaneda RN 01/18/24 1131 by Osmani Chirinos, BRENDAN Non-Surgical Airway 01/18/24; 0857 (jeff booth via procedure documentation); 01/18/24; 1008 01/18/24 0857 by Thais Navarro CRNA 01/18/24 1008 by Thais Navarro CRNA documented in this encounter Social History Tobacco [...] No 03/11/2016 documented as of this encounter OR Notes * Anesthesia Postprocedure Evaluation - Thais Navarro CRNA - 01/18/2024 1015 EDT Patient: Martha Benoit Vital signs were reviewed with the recovery nurse. Complete vitals history is available in the Epicflowsheets. Vitals Value Taken Time BP 128/59 01/18/24 1013 Temp 36.2 01/18/24 1015 Resp 15 01/18/24 1015 Pulse From Oximetry 77 BPM 01/18/24 1015 SpO2 99 % 01/18/24 1015 Heart Rate 78 BPM 01/18/24 1015 Vitals shown include unvalidated device data. Last Pain Score - Numeric Pain Level (Scale 1-10): 5 Type of Anesthesia - general Anesthesia Post Evaluation Post-procedure vitals reviewed and are stable. Level of consciousness: sedated Temperature status: normothermia Respiratory status: airway patent and nasal cannula Cardiovascular status: acceptable Hydration status: adequate Nausea/Vomiting: none Pain management: adequate Post-Op Assessment: patient tolerated procedure well with no complications Patient participation: unable to participate due to sedation Disposition: outpatient/home Anesthesia Complications: No apparent anesthesia complications * Anesthesia Procedure Notes - Thais Navarro CRNA - 01/18/2024 0857 EDT Associated Order(s): Airway Airway Date/Time: 01/18/2024 8:47 Urgency: elective Airway not difficult General Information and Staff Patient location during procedure: OR Resident/ANODISER: Thais Navarro CRNA Performed: resident/ANODISER/AA Performed by: Thais Navarro CRNA Authorized by: Gelacio Cespedes MD Indications and Patient Condition Indications for airway management: anesthesia Sedation level: GA Preoxygenated: yes Patient position: sniffing MILS Maintained: Yes Ventilation assessment: 1 - Easy Final Airway Details Final airway type: endotracheal airway Successful airway: ETT Cuffed: yes Successful intubation technique: direct laryngoscopy Facilitating devices/methods: intubating stylet Endotracheal tube insertion site: oral Blade: Ga Blade size: #2 ETT size (mm): 6.5 Cormack-Lehane Classification: grade I - full view of glottis Placement verified by: chest auscultation and capnometry Measured from: lips ETT to lips (cm): 20 Number of attempts at approach: 1 * Anesthesia Preprocedure Evaluation - Thais Navarro CRNA - 01/18/2024 0815 EDT Anesthesia Preprocedure Evaluation Patient Medical History, including Anesthesia History reviewed. Chart and Nursing Notes reviewed, including NPO status and Medication History. Additional ROS/History Findings: No Known Allergies Review of Systems Constitutional: Cold two weeks ago, feeling well now HENT: Negative. Respiratory: Negative. Negative for cough, sputum production and shortness of breath. Cardiovascular: Negative. Negative for chest pain and palpitations. METS<4, no physical exersion, uses walker Gastrointestinal: Negative. Negative for heartburn. Genitourinary: Negative. Skin: psoriasis Neurological: Negative for seizures. Stroke many years ago found on scan, no residuals Past Medical History: Diagnosis Date Activity, other involving cardiorespiratory exercise uses a walker , unable to do stairs reported 12/2023 Diabetes mellitus ([facility]) tx w/ insulin and oral meds last A1c 6. 4 reported 12/2023 Exercise involving housework dishes , no vacuuming d/t balance reported 12/2023 GERD (gastroesophageal reflux disease) tx w/ meds , able to lay flat reported 12/2023 History of general anesthesia w/o issue reported 12/2023 Hypothyroidism tx w/ meds 12/2023 Peripheral neuropathy bilat legs reported 12/2023 Rash psoriasis on legs reported 12/2023 Unspecified cerebral artery occlusion with cerebral infarction 2006 was found incidentally, no residual issues reported 12/2023 Unspecified urinary incontinence 12/2023 urgency, cystocele and rectocele Relevant Problems No relevant active problems Physical Exam Airway Mallampati: I TM distance: >3 FB Neck ROM: full Cardiovascular Rhythm: regular Rate: normal Dental - normal exam Pulmonary - normal exam Abdominal Anesthesia Plan ASA 3 Anesthesia Type - general, to include intravenous induction. Anesthesia plan and risks discussed. Informed consent obtained from patient. Specific risks discussed were , myocardial infarction, stroke, vomiting, nausea and dental injury (aspiration, sore throat/mouth/jaw). PAT Note Notes from 12/19/23 through 01/18/24 No notes of this type exist for this encounter. documented in this encounter Plan of Treatment Upcoming Encounters Date Type Department Care Team (Late st Contact Info) Description 05/22/2024 10:00 EDT Office Visit [facility] Foot & Ankle Program - [address] [place] [address] Edwige Keller DPM [address] [place] [address] 07/18/2024 13:00 EDT Procedure visit [facility] Women's Services - [facility] [address] [place], [place] [id number] Jessica Murray NP 111 [facility], [facility], [address] [place] [phone] (work) documented as of this encounter Procedures Procedure Name Priority Date/Time Associated Diagnosis Comments ANESTHESIA INTUBATION Routine 01/18/2024 8:47 EDT documented in this encounter Results * GA AN ELECTIVE ENDOTRACHEAL AIRWAY (01/18/2024 8:47 EDT) Narrative Thais Navarro CRNA - 01/18/2024 8:47 EDT Thais Navarro CRNA ? 01/18/2024 ??8:57 Airway Date/Time: 01/18/2024 8:47 Urgency: elective Airway not difficult General Information and Staff Patient location during procedure: OR Resident/ANODISER: Thais Navarro CRNA Performed: resident/ANODISER/AA Performed by: Thais Navarro CRNA Authorized by: Gelacio Cespedes MD ?? Indications and Patient Condition Indications for airway management: anesthesia Sedation level: GA Preoxygenated: yes Patient position: sniffing MILS Maintained: Yes Ventilation assessment: 1 - Easy Final Airway Details Final airway type: endotracheal airway Successful airway: ETT Cuffed: yes Successful intubation technique: direct laryngoscopy Facilitating devices/methods: intubating stylet Endotracheal tube insertion site: oral Blade: Ga Blade size: #2 ETT size (mm): 6.5 Cormack-Lehane Classification: grade I - full view of glottis Placement verified by: chest auscultation and capnometry Measured from: lips ETT to lips (cm): 20 Number of attempts at approach: 1 Gelacio Cespedes MD ANESTHESIA ORDERA BLES documented in this encounter Visit Diagnoses Not on filedocumented in this encounter Administered Medications Inactive Administered Medications - up to 3 most recent administrations Medication Order MAR Action Action Date Dose Rate Site ceFAZolin (ANCEF) syringe 2 g 2 g, intravenous, Administer over 5 Minutes, PRE-OP ONCE, 1 dose, On Ava 01/18/24 at 0745, Routine, Preprocedure Given 01/18/2024 8:56 EDT 2 g dexmedeTOMIDine (PRECEDEX) injection intravenous, PRN, Starting on Ava 01/18/24 at 0848, Until Ava 01/18/24 at 1015, Routine, Anesthesia Intraprocedure Given 01/18/2024 8:48 EDT 8 mcg fentaNYL citrate (PF) injection intravenous, PRN, Starting on Ava 01/18/24 at 0841, Until Ava 01/18/24 at 1015, Routine, Anesthesia Intraprocedure Given 01/18/2024 8:41 EDT 100 mcg lactated ringers (LR) infusion at 25 mL/hr, intravenous, CONTINUOUS, Starting on Ava 01/18/24 at 0745, Until Ava 01/18/24 at 1330, Routine, Preprocedure Continued by Anesthesia 01/18/2024 8:37 EDT 25 mL/hr New Bag 01/18/2024 8:30 EDT 25 mL/hr lidocaine (PF) 20 mg/mL (2 %) injection intravenous, PRN, Starting on Ava 01/18/24 at 0844, Until Ava 01/18/24 at 1015, Routine, Anesthesia Intraprocedure Given 01/18/2024 8:44 EDT 60 mg ondansetron (PF) (ZOFRAN) injection intravenous, PRN, Starting on Ava 01/18/24 at 1002, Until Ava 01/18/24 at 1015, Routine, Anesthesia Intraprocedure Given 01/18/2024 10:02 EDT 4 mg phenylephrine HCl in 0.9% NaCl injection intravenous, PRN, Starting on Ava 01/18/24 at 0858, Until Ava 01/18/24 at 1015, Routine, Anesthesia Intraprocedure Rate Change 01/18/2024 9:37 EDT 15 mcg/min 9 mL/hr New Bag 01/18/2024 9:06 EDT 30 mcg/min 18 mL/hr Given 01/18/2024 9:05 EDT 100 mcg propOFol (DIPRIVAN) injection intravenous, PRN, Starting on Ava 01/18/24 at 0844, Until Ava 01/18/24 at 1015, Routine, Anesthesia Intraprocedure New Bag 01/18/2024 8:49 EDT 50 mcg/kg/min 20.82 m L/hr Given 01/18/2024 8:44 EDT 140 mg rocuronium (ZEMURON) injection intravenous, PRN, Starting on Ava 01/18/24 at 0844, Until Ava 01/18/24 at 1015, Routine, Anesthesia Intraprocedure Given 01/18/2024 8:44 EDT 50 mg sugammadex (BRIDION) injection intravenous, PRN, Starting on Ava 01/18/24 at 1002, Until Ava 01/18/24 at 1015, Routine, Anesthesia Intraprocedure Given 01/18/2024 10:02 EDT 150 mg documented in this encounter Care Teams Call Center Operator Relationship Specialty Start Date End Date RukhsanaKatia [address] [phone] PCP - General Family Medicine - Primary Care 06/20/23 documented as of this encounter
--- OUTSIDE RECORDS SUMMARY | 2024-05-15 11:00 | XMS_ITS | Referral Summary ---
Author Organization [facility] Address [address] [place] [address] Care Team Providers Care Clinical Review Specialist Name Role Phone Katia Haywood Primary Care Provider [phone] Encounters Date Type Department Care Team Description 04/05/2024 Refill [facility] Pelvic Medicine and Reconstructive Surgery - Medical Office [address] [address] Chelsi Rivera MD Medications Refill 02/14/2024 10:15 EDT Post-op Visit [facility] Pel[facility] Medicine and Reconstructive Surgery - Medical Office [address] [address] Chula Whitley MD Rectocele (Primary Dx) 02/14/2024 10:15 EDT Post-op Visit [facility] Pel[facility] Medicine and Reconstructive Surgery - Medical Office [address] [address] Chelsi Rivera MD Other female genital prolapse (Primary Dx) from Last 3 Months Allergies No known active allergies Medications Medication Sig Dispensed Refills Start Date End Date Status metformin (GLUCOPHAGE) 500 mg tablet Take 1 Tablet by mouth 3 times daily before meals. Active glipiZIDE (GLUCOTROL) 10 mg tablet Take 1 Tablet by mouth 2 times daily. Active oxyCODONE-acetaminop hen (PERCOCET) 10-325 mg per tablet Take 1 Tablet by mouth every 4 hours as needed for Pain. Takes 5 tabs daily Active furosemide (LASIX) 40 mg tablet Take 40 mg by mouth daily. Reported on 03/13/2017 Active ergocalciferol (DRISDOL; VITAMIN D2) 1,250 mcg (50,000 unit) capsule Take 1 Capsule by mouth once a week. Active insulin lispro (HUMALOG) 100 unit/mL injectionIndications :per patient insulin called 70/30 Inject into the skin 3 times daily. Sliding scale Active omeprazole (PRILOSEC) 20 mg capsule Take 1 Capsule by mouth daily. Active lidocaine 5 % (LIDODERM) 5 % patch Place 1 Patch onto the skin daily. Active baclofen (LIORESAL) 10 mg tablet Take 1 Tablet by mouth 4 times daily. Active gabapentin (NEURONTIN) 300 mg capsule Take 1 Capsule by mouth 2 times daily. Active ciclopirox (PENLAC) 8 % solution Apply to affected nails daily as instructed 1 Bottle 1 06/14/2019 Active Additional Information Patient not taking.Reported on 01/18/2024 canagliflozin (INVOKANA) 300 mg tablet Take 1 Tablet by mouth daily. 02/05/2019 Active triamcinolone (KENALOG) 0.1 % ointment APPLY TOPICALLY TO ARMS LEGS AND ABDOMEN TWO TIMES A DAY NEEDED 05/01/2018 Active pediatric multivitamin no.76 tablet,chewable Take 1 Tab by mouth. 02/13/2019 Active nystatin (MYCOSTATIN) powder 3 times daily as needed. 12/14/2019 Active cyclobenzaprine (FLEXERIL) 10 mg tablet Take 1 Tablet by mouth at bedtime. 90 Tablet 08/16/2021 Active secukinumab (COSENTYX, 2 SYRINGES,) 150 mg/mL syringe Inject 2 mL into the skin every 4 weeks. Every 28 days Active levothyroxine (SYNTHROID) 25 mcg tablet Take 1 Tablet by mouth daily. Active oxyCODONE (ROXICODONE) 5 mg immediate release tablet Take 1 Tablet by mouth every 4 hours as needed for Pain. Daily Max: 30 mg 10 Tablet 01/18/2024 Active estradioL (ESTRACE) 0.01 % (0.1 mg/gram) vaginal cream Place 0.5 g vaginally twice a week. 42.5 g 3 04/08/2024 Active Active Problems Patient Care Coordination No te Formatting of this note migh t be different from the original. Patient needs low table, room patient with a hydraulic adjustable height table only! Problem Noted Date Diagnosed Date Diabetes mellitus ([facility]) 08/11/2014 Vitamin D deficiency 01/28/2010 Morbid obesity ([facility]) 01/22/2010 Mild dysplasia of cervix ([facility]) 06/26/2009 Overview: 06/2009, LEEP - [facility] I - neg margins, and laser of posterior wall of the vagina persistent LGSIL 12/2009 ASCUS and pos HPV 06/2010, 11/2010, 05/2011, 11/2011 and 05/2012 were negative 02/2014 Neg pap, pos HPV 02/2015 NIL neg HPV 02/2016 NIL ,pos HPV 04/26/16 neg bx, neg ECC 03/13/17 pap neg, HPV pos 05/16/17 colpo cx bx reactive atypia, ECC benign pap and HPV next year with reflex subtyping of HPV for 16/18 - if neg 16/18 but HPV pos for other HPV and pap neg then can go to colpos every 2 years. If HPV 16,18 pos then needs at that time. Advised needs vag estrogen week prior to colpos 05/23/19 neg pap, HPV pos, 18/45 pos; 16 neg. 07/23/19 colpo with cervical bx, ECC, and right vaginal wall biopsy 04/2020 NIL, HPV pos 2019 colpo, cx bx x2 neg, ECC neg 06/2021 pap neg, HPV pos, HPV 18/45 pos, HPV 16 neg 06/2022 colpo cx bx x 2 atypical metaplasia, ECC neg, vag bx benign 06/2023 cx and vag bx neg, ECC neg, pap neg, HPV pos, HPV 18/45 pos, HPV 16 neg HPV 18 pos - plan yearly HPV/pap and colpo as pt not want to come twice and declines doing colpo every other year ( she does not want to space out colpo - also declines vag E2) Social History Tobacco Use Types Packs/Day Years Used Date Smoking Tobacco: Never Passive Smoke Exposure: Never Smokeless Tobacco: Never Tobacco Cessation:Counseling Given: Not Answered Alcohol Use Standard Drinks/Week Comments Not Currently 0 (1 standard drink = 0.6 oz pur e alcohol) Interpersonal Safety Answer Date Record ed Physically Hurt Never 05/24/2020 Verbally Threaten Not on file 05/24/2020 Sex and Gender Information Value Date Recorded Sex Assigned at Female 02/22/2021 15:01 EDT Gender Identity Female 04/30/2020 8:27 EDT Sexual Orientation Straight 02/22/2021 15 :01 EDT Last Filed Vital Signs Vital Sign Reading Time Taken Comments Blood Pressure 144/73 01/18/2024 1100 EDT Pulse 89 12/28/2023 0957 EST Temperature 36.5 ??C (97.7 ??F) 01/18/2024 1100 EDT Respiratory Rate 20 01/18/2024 1045 EDT Oxygen Saturation 97% 01/18/2024 1100 EDT Inhaled Oxygen Concentration - - Weight 69.4 kg (153 lb) 01/18/2024 0748 EDT Height 157.5 cm (5' 2) 01/18/2024 0748 EDT Body Mass Index 27.98 01/18/2024 0748 EDT Functional Status Functional Status Response Date of [...] concentrating, remembering, or making decisions? No 03/11/2016 Plan of Treatment Upcoming Encounters Date Type Department Care Team (Late st Contact Info) Description 05/22/2024 10:00 EDT Office Visit [facility] Program - [address] [address] Edwige Keller [address] [address] 07/18/2024 13:00 EDT Procedure visit [facility] Women's Services - [facility] [address] [place] [address] Jessica Murray NP [address] [facility], [address] [place] [address] Procedures Procedure Name Priority Date/Time Associated Diagnosis Comments HEPATITIS C AB W REFLEX TO HCV RNA BY PCR Routine 05/22/2018 12:02 EDT Routine screening for STI (sexually transmitted infection) from Last 3 Months or Most Recently Relevant to Health Maintenance Results * HEPATITIS C AB W REFLEX TO HCV RNA BY PCR (05/22/2018 12:02 EDT) Hep C Ab w Rfx PCR HCSCR2 Negative Negative 05/23/2018 21:57 EDT [facility] Comment: The results of this assay can be falsely lowered due to the consumption of Biotin. Blood specimen (specimen) BLOOD SPECIMEN / Unknown 05/22/2018 12:02 EDT 05/22/2018 12:36 EDT Kassie Carreon PA-C CHEMISTRY & BL OOD GAS ORDERABLES [facility] [address] [place] [address] from Last 3 Months or Most Recently Relevant to Health Maintenance Advance Directives For more information, please contact: [phone] Documents on File Type Date Recorded Patient User Support Specialist Expl anation Advance Directive 01/18/2024 6:46 Power of Camera Assembler * Full Code (Latest Code Status on File) Date Activated Date Inactivated Comments 01/18/2024 7:25 01/18/2024 13:30 Question Answer Comments When the patient has NO PULSE: Full Code / CPR Who Made the Decision? Patient Care Teams Clinical Review Specialist Relationship Specialty Start Date End Date Katia Haywood [address] [place] [id number] PCP - General Family Medicine - Primary Care 06/20/23
--- OUTSIDE RECORDS SUMMARY | 2024-05-15 11:00 | XMS_ITS | Encounter Summary ---
Author Organization [facility] Address [address] [place] [address] Care Team Providers Care Mosaic Tile Maker Name Role Phone Katia Haywood Primary Care Provider [phone] Reason for Visit * Reason Comments Pre-op Exam Surgery scheduled Encounter Details Date Type Department Care Team (Latest Contact Info) Description 12/28/2023 10:00 EST Office Visit [facility] - Medical Office Building [address] [id number] Rachana Garcia PA-C [address] [place] [address] Medical Office [facility], [address] [address] Pre-op evaluation (Primary Dx); Rectocele; Cystocele with prolapse Social History Tobacco Use Types Packs/Day Years Used Date Smoking Tobacco: Never Smokeless Tobacco: Never Alcohol Use Standard Drinks/Week Comments No 0 (1 standard drink = 0.6 oz [...] Sign Reading Time Taken Comments Blood Pressure 120/56 12/28/2023 0957 EST Pulse 89 12/28/2023956 EST Temperature - - Respiratory Rate - - Oxygen Saturation - - Inhaled Oxygen Concentration - - Weight 67.1 kg (148 lb) 12/28/2023956 EST Height 160 cm (5' 2.99) 12/28/2023956 EST Body Mass Index 26.22 12/28/2023956 EST documented in this encounter Functional Status Functional [...] No 03/11/2016 documented as of this encounter Patient Instructions * Patient Instructions* Rachana Ye, BRENDAN - 12/28/2023 10:00 EST Images from the original note were not included. Post-Operative Instructions Pain management: For the first 2 days after surgery, alternate/stagger Tylenol (Acetaminophen) 650 mg (every 4-6 hours) and Ibuprofen (Advil) 600 mg (every 6-8 hours) (if you can take these medications) so you get one or the other every 4 hours. You don't have to wake up to take medicines. As healing occurs, you will be able to increase the length of time between doses until you will not need to use the medication at all. You may be discharged from the hospital with a prescription for narcotic pain medicine. Take narcotic prescription medicines if pain is not tolerable with the tylenol and ibuprofen. Narcotic prescription pain medications can be habit forming (addicting) and should be used with caution. For best results, take the medication when you first note the onset of pain. As healing occurs, you will be able to stretch out the length of time between doses until you will not need to use the medication at all. You may have some degree of discomfort for up to 12 weeks. Antibiotics: If you are sent home with a catheter, you will be given a prescription for an antibiotic. You should take this medicine until it is [...] next 4 weeks unless stools become too soft. Do not go longer than two days [...] should not drive if you are taking narcotic pain medications. Catheter: It is possible that [...] healing repair, when you do light lifting PROBLEMS? Please call our office if you experience: Fever greater than 101.5 F A malodorous or foul vaginal discharge Heavy vaginal bleeding that does not slow down with less activity Significant increase in pain not associated with increased activity Reference: Recurrent pelvic organ prolapse: International [employer] Research andDevelopment Committee Opinion August 2016 [facility] Patient Instructions Learning About Urinary Catheter Care to Prevent Infection What is a urinary catheter? A urinary catheter is a flexible plastic tube used to drain urine from your bladder when you can't urinate on your own. The catheter allows urine to drain from the bladder into a bag. Two types of drainage bags may be used with a urinary catheter. A bedside bag is a large bag that you can hang on the side of your bed or on a chair. You can use it overnight or anytime you will be sitting or lying down for a long time. A leg bag is a small bag that you can use during the day. It is usually attached to your thigh or calf and hidden under your clothes. Having a urinary catheter increases your risk of getting a urinary tract infection. Germs may get on the catheter and cause an infection in your bladder or kidneys. The longer you have a catheter, the more likely it is that you will get an infection. You can help prevent this problem with good hygiene and careful handling of your catheter and drainage bags. How can you help prevent infection? Take care to be clean Always wash your hands well before and after you handle your catheter. Clean the skin around the catheter twice a day using soap and water. Dry with a clean towel afterward. You can shower with your catheter and drainage bag in place unless your doctor told you not to. When you clean around the catheter, check the surrounding skin for signs of infection. Look for things like pus or irritated, swollen, red, or tender skin around the catheter. Be careful with your drainage bag Always keep the drainage bag below the level of your bladder. This will help keep urine from flowing back into your bladder. Check often to see that urine is flowing through the catheter into the drainage bag. Empty the drainage bag when it is half full. This will keep it from overflowing or backing up. When you empty the drainage bag, do not let the tubing or drain spout touch anything. Be careful with your catheter Do not unhook the catheter from the drain tube. That could let germs get into the tube. Make sure that the catheter tubing does not get twisted or kinked. Do not tug or pull on the catheter. And make sure that the drainage bag does not drag or pull on the catheter. Do not put powder or lotion on the skin around the catheter. Do not have sexual intercourse while wearing a catheter. How do you empty a urine drainage bag? . If your doctor has asked you to keep a record, write down the amount of urine in the bag before youempty it. Wash your hands before and after you touch the bag. Remove the drain spout from its sleeve at the bottom of the drainage bag. Open the valve on the drain spout. Let the urine flow out into the toilet or a container. Be careful not to let the tubing or drain spout touch anything. After you empty the bag, wipe off any liquid on the end of the drain spout. Close the valve. Then put the drain spout back into its sleeve at the bottom of the collection bag. How do you change from a bedside bag to a leg bag? Wash your hands before and after you handle the bags. Empty the bag attached to the catheter. Put a clean towel under the catheter where it connects to the bag. Fold and pinch the catheter closed to keep urine from leaking out. Many catheters have a clip you can use to pinch the tube closed. Remove the used bag from the catheter. Use an alcohol wipe to clean the tip of the leg bag. Then connect the leg bag to the catheter. Strap the leg bag to your thigh or calf. Be sure the straps are not too tight. How can you clean a drainage bag? Clean your bags every day. Many people clean their bedside bag in the morning when they switch to aleg bag. At night, they attach the bedside bag and clean the leg bag. To clean a drainage bag: Remove the bag from the catheter. Fill the bag with 2 parts vinegar and 3 parts water. Let it stand for 20 minutes. Empty the bag, and let it air dry. When should you call for help? Call your doctor now or seek immediate medical care if: You have symptoms of a urinary infection. These may include: Pain or burning when you urinate. A frequent need to urinate without being able to pass much urine. Pain in the flank, which is just below the rib cage and above the waist on either side of the back. Blood in your urine. A fever. Your urine smells bad. You see large blood clots in your urine. No urine or very little urine is flowing into the bag for 4 or more hours. Watch closely for changes in your health, and be sure to contact your doctor if: The area around the catheter becomes irritated, swollen, red, or tender, or there is pus draining from it. Urine is leaking from the place where the catheter enters your body. Follow-up care is a florence part of your treatment and safety. Be sure to make and go to all appointments, and call your doctor if you are having problems. It's also a good idea to know your test resultsand keep a list of the medicines you take. [facility] Medical group Removing an Indwelling Urinary Catheter Follow these instructions to remove your catheter on the day that your doctor recommends About the catheter An indwelling catheter has a fluid-filled balloon that keeps it from falling out. Before removing the catheter, you need to deflate this balloon. Pulling the catheter out without fully deflating the balloon can cause injury to the bladder or urethra. Assemble your supplies You will need: Syringe without needle Soap and water to wash hands Plastic trash bag to discard catheter Procedure to follow Wash your hands well before and after removing the catheter. Deflate the balloon. To deflate the balloon, attach a syringe without a needle to the inflation port. The inflation port has a special tip that fits the syringe. Push syringe into port while gently pulling back on the plunger. The water in the balloon will flowinto the syringe, deflating the balloon. Up to 10 ml will begin to flow into the syringe. Withdraw fluid until no more liquid comes into the syringe. Gently pull on the catheter. The catheter should slide out easily. If you are unable to withdraw water from the inflation port, try reinserting the syringe. If you have misplaced the syringe, you may cut the catheter just below the inflation port and just above the Y in the catheter. The water in the balloon will escape from the cut end. Gently pull on the catheter. It should slide out easily. If the catheter does not come out easily, don???t force it. Instead, call our office at [phone]. documented in this encounter Progress Notes * Rachana Garcia PA-C - 12/28/2023 1000 EST Urogynecology Pre-Op Note Martha presents for preop evaluation: Surgeon : Nicole in conjunction with Dr. Whitley Surgery : anterior colporrhaphy, cystoscopy in conjunction with posterior colporrhaphy with Dr. Whitley Date of procedure: 01/18/2024 The patient and I reviewed the planned surgery, and all of their questions were answered to the best of my ability. We discussed risks of surgery, including but not limited to bleeding, infection, pain, , urinary retention, ureteral injury, and persistent or recurrent incontinence and/or prolapse. We discussed the common post-surgical course, including rest for the first 2-3 days after surgery and then gradual return to normal daily activities with limitations on lifting and avoiding activitiesthat increase intra-abdominal pressure. We discussed post-surgical pain control with tylenol, ibuprofen, and prn opiates, and an opiate consent form was signed. I stressed the importance of maintaining a good bowel regimen, to avoid constipation after surgery. The patient is aware to contact us and/or go to the ED with fever, severe pain, heavy bleeding, hematuria, or malodorous vaginal discharge. No contraindications to planned procedure Informed consent obtained for procedure OpiateConsentCompleted : Informed consent obtained for post-operative opioids Heather-operative counseling performed Pre-op and post-op Instructions reviewed, including NPO after midnight Post op appt scheduled I spent a total of 32 minutes on the date of this encounter meeting with the patient and reviewing documentation/coordinating care as described in this note. HPI: Martha presents for preop evaluation: Stage II cystocele, rectocele Urodynamics-Dr. Kaplan-2020 Urodynamics Diagnosis: Diminished or delayed sensation Dysfunctional voiding Normal bladder capacity Impression: high EMG acitvity during void although patient notes that she does not push this much usually although I do not see much valsalva. Normal compliance. No current incontinence She is very concerned for developing incontinence postoperatively She is very concerned for requiring use of catheter postoperatively No prior anesthesia issues No bleeding diathesis No hx heart or lung diseases Diagnosis Date Unspecified cerebral artery occlusion with cerebral infarction Past Surgical History: Procedure Laterality Date CERVIX LESION DESTRUCTION 07/15/2009 GASTRIC BYPASS SURGERY 01/04/16 LEEP 07/15/2009 TUBAL LIGATION Family History Problem Relation Age of Onset Colon Cancer Father Diabetes Father Stroke Father Cervical Cancer Sister Diabetes Sister Heart Disease Sister [place] at age 42 = Diabetes Mother Diabetes Brother Diabetes Maternal Aunt Diabetes Maternal Uncle Social History Tobacco Use Smoking status: Never Smokeless tobacco: Never Substance Use Topics Alcohol use: No Exam: BP 120/56 (BP Cuff Location: Left arm, BP Patient Position: Sitting) Pulse 89 Ht 160 cm (62.99) Wt 67.1 kg (148 lb) BMI 26.22 kg/m?? Gen: Female, appearing stated age, NAD, sitting in chair, uses wheeled walker for ambulation Head: Normocephalic, atraumatic. Eyes: Sclera anicteric, EOMI CV: Regular, S1, S2, no murmurs Lungs: good effort. Clear to ausculation bilaterally. Ext: No edema, clubbing or cyanosis Skin: Warm and dry; no rashes or lesions * Rachana Ye RN - 12/28/2023 1000 EST Patient Education Topic: Catheter Care and Removal Method: Demonstration, Handout, and Verbal Taught to: Patient Barriers: None Outcomes: independent Pt is concerned about having an indwelling catheter with her walker. Review of catheter management and to hang drainage bag on walker while ambulating. Pt refused hat and voiding diary for post op urine measurements, as she states that she will not use it. I was supervised by Vasile BLACKBURN who was present and immediately available in the office suite. RACHANA YE RN 12/28/2023 11:10 documented in this encounter Plan of Treatment Upcoming Encounters Date Type Department Care Team (Late st Contact Info) Description 05/22/2024 10:00 EDT Office Visit [facility] - [address] [place] [address] Edwige Keller DPM [address] [place] [phone] 07/18/2024 13:00 EDT Procedure visit [facility] - [address] [phone] Jessica Murray NP 111 [facility], [address] [place] [address] documented as of this encounter Visit Diagnoses Diagnosis Pre-op evaluation- Primary Preoperative examination, unspecified Rectocele Cystocele with prolapse documented in this encounter Care Teams Mosaic Tile Maker Relationship Specialty Start Date End Date Katia Haywood [address] [place] [id number] PCP - General Family Medicine - Primary Care 06/20/23 documented as of this encounter
--- OUTSIDE RECORDS SUMMARY | 2024-05-15 11:00 | XMS_ITS | Data Portability ---
Author Organization [facility] Address Espinoza [place] [address] Assessment Encounter Date Assessment Date Assessment LastModified by Organization Details LastModified Time 04/04/2024 04/04/2024 The patient is currently recovering from prolapse surgery and managing chronic pain and type 2 diabetes. She has been unsuccessful in undergoing colonoscopies due to difficulties with colon preparation. Additionally, the patient has psoriasis with no active plaques or open sores. [email or web address] Not available 04/04/2024 15:10:55 05/15/2024 05/15/2024 The patient presents with urinary symptoms and concerns about diabetes management. She has been previously treated with Bactrim and cephalexin for her urinary symptoms, but experienced a recurrence. The patient is also using a prescribed cream for vaginal atrophy. Her diabetes is managed with Invokana, which has been effective in controlling her blood sugar levels. [email or web address] Not available 05/15/2024 10:46:33 Plan of Treatment Reminders Order Date Submit Date Provider Last Modified By Organization Details Last Modified Time Details Appointments Acute 30 2023 10:10A M ERIC PATRICIA Not available Not available Not available Lab influenza virus A + B + SARS-CoV- 2 (COVID19) Ag panel, rapid IA, upper respirato ry specimen [email or web address] [facility], [address] [place] [address], [phone], 01/03/2024 16:37:56 drug screen, urine [address] [facility], [address] [place] [address], [phone], 04/04/2024 14:26:00 microalbu min/creat inine, ratio, urine 2023 024 [email or web address] [facility] (Registration ), [address] [place] [address] [facility] [place], [address], 04/11/2024 07:28:03 CMP, serum or plasma 2023 024 [email or web address] [address] [place] [address] [place], [address], 04/04/2024 21:23:49 urinalysi s, dipstick [email or web address] [facility], [address] [place] [address], [phone], 04/23/2024 15:00:39 culture, urine + sensitivi ty 2023 024 [email or web address] [facility] (Registration ), [address] [place] [address] [place], [address], 04/30/2024 06:59:39 urinalysi s, dipstick [address] [facility], [address] [place] [address], [address], 05/15/2024 10:12:53 culture, urine + sensitivi ty 2023 024 [email or web address] (Registration ), [address] [place] [address] [place], [address], 05/15/2024 10:40:39 Referral None recorded. Procedures None recorded. Surgeries None recorded. Imaging None recorded. Medication Orders albuterol sulfate HFA 90 mcg/actua tion aerosol inhaler 2023 024 [employer] [facility], [address] [facility], [place], [address], 01/03/2024 16:38:09 benzonata te 200 mg capsule 2023 [employer] [facility], [address] [facility], [place], [address], 01/03/2024 16:38:21 Qvar RediHaler 80 mcg/actua tion HFA breath activated aerosol 2023 [employer] [facility], [address] [facility], [place], [address], 01/03/2024 16:38:08 oxycodone -acetamin ophen 10 mg-325 mg tablet 2023 [employer] [facility], [address] [facility], [place], [address], 04/04/2024 15:11:47 oxycodone -acetamin ophen 10 mg-325 mg tablet 2023 024 [employer] [facility], [address] [facility], [place], [address], 04/04/2024 15:11:47 oxycodone -acetamin ophen 10 mg-325 mg tablet 2023 024 [employer] [facility], [address] [facility], [place], [address], 04/04/2024 15:11:47 Invokana 300 mg tablet 2023 024 [employer] [facility], [address] [facility], [place], [address], 04/04/2024 13:38:35 cephalexi n 500 mg capsule 2023 [employer] [facility], [address] [facility], [place], [address], 04/23/2024 13:24:52 Diflucan 150 mg tablet 2023 024 [employer] [facility], [address] , [place], [address], 04/23/2024 13:26:30 Patient TargetsNo targets recorded. Patient Instructions Encounter Date Encounter Id Patient Instructions Last Modified By Organization Details Last Modified Time 01/03/2024 [id number] Martha, use the albuterol inhaler with a spacer, 2 puffs every 3-4 hours as needed for cough use the QVAR - inhaler 2 puffs twice daily until better - rinse mouth after use the tessalon for night time cough as well Strep Flu Covid tests are negative. Most colds get better in 10-14 days Get plenty of rest and drink a lot of water. Treat pain with acetaminophen (Tylenol) or ibuprofen (Advil). Try gargling with salt water for sore throat. Take honey, alone or in tea. Perform nasal irrigation with Neti Pot or saline nasal spray 2-3 times per day to help with congestion. Try a hot shower before bed and sleep propped up to decrease postnasal drip. Please call with any question or concern [email or web address] Not available 01/03/2024 16:39:59 04/04/2024 [id number] - Continue to follow post-operative care instructions for prolapse surgery recovery - Monitor and manage blood sugar levels as advised - Maintain a skincare routine to manage psoriasis - Follow up on alternative colonoscopy options and diagnostic methods - Report any significant changes in health or symptoms to the healthcare provider [email or web address] Not available 04/04/2024 13:55:53 05/15/2024 [id number] - Continue using the prescribed cream for [...] Range Abnormal Flag LastModifiedBy Organization Detail LastModifiedTime 01/03/20 24 01/03/2024 influ carmen virus A + B + SARS- CoV-2 (COVI D19) Ag panel , rapid IA, upper respi rator y speci men Influenza A negati ve Not Available [address], [address], 01/03/2024 16:33:15 01/03/20 24 01/03/2024 influ carmen virus A + B + SARS- CoV-2 (COVI D19) Ag panel , rapid IA, upper respi rator y speci men Influenza B negati ve Not Available [address], [address], 01/03/2024 16:33:15 01/03/20 24 01/03/2024 influ carmen virus A + B + SARS- CoV-2 (COVI D19) Ag panel , rapid IA, upper respi rator y speci men SARS-COV-2 negati ve Not Available [address], [address], 01/03/2024 16:33:15 04/04/20 24 04/04/2024 HEMOG LOBIN A1C hemoglobin A1C 7.3 % <5.7 high Not Available [address] [place], [address] 04/04/2024 21:08:39 04/04/20 24 04/04/2024 MICRO ALBUM IN microalbumin 90.4 mg/L 1.30-2 0.0 high Not Available [address] [place], [address] 04/04/2024 21:23:46 04/04/20 24 04/04/2024 MICRO ALBUM IN creatinine urine 43.66 mg/dL Not Available [address] [place], [address] 04/04/2024 21:23:46 04/04/20 24 04/04/2024 MICRO ALBUM IN microalb ug/mg crea 207.1 ug/mg _cr Not Available [address] [place], [address] 04/04/2024 21:23:46 04/04/20 24 04/04/2024 COMPR EHENS ANTONIO METAB OLIC PANEL calcium 9.2 mg/dL 8.5-10 .1 normal Not Available [address] [place], [address] 04/04/2024 21:23:49 04/04/20 24 04/04/2024 COMPR EHENS ANTONIO METAB OLIC PANEL glucose 105 mg/dL 74-106 normal Not Available [address] [place], [address] 04/04/2024 21:23:49 04/04/20 24 04/04/2024 COMPR EHENS ANTONIO METAB OLIC PANEL BUN 19 mg/dL 7-18 high Not Available [address] [place], [address] 04/04/2024 21:23:49 04/04/20 24 04/04/2024 COMPR EHENS ANTONIO METAB OLIC PANEL creatinine 0.5 mg/dL 0.55-1 .02 low Not Available [address] [place], [address] 04/04/2024 21:23:49 04/04/20 24 04/04/2024 COMPR EHENS ANTONIO METAB OLIC PANEL estimated GFR 107.31 mL/min /1.73m 2 Not Available [address] [place], [address] 04/04/2024 21:23:49 04/04/20 24 04/04/2024 COMPR EHENS ANTONIO METAB OLIC PANEL total protein 7.8 g/dL 6.4-8. 2 normal Not Available [address] [place], [address] 04/04/2024 21:23:49 04/04/20 24 04/04/2024 COMPR EHENS ANTONIO METAB OLIC PANEL albumin 3.8 g/dL 3.4-5. 0 normal Not Available [address] [place], [address] 04/04/2024 21:23:49 04/04/20 24 04/04/2024 COMPR EHENS ANTONIO METAB OLIC PANEL bilirubin, total 0.5 mg/dL 0.2-1. 0 normal Not Available [address] [place], [address] 04/04/2024 21:23:49 04/04/20 24 04/04/2024 COMPR EHENS ANTONIO METAB OLIC PANEL alk phos 99 U/L 46-116 normal Not Available [address] [place], [address] 04/04/2024 21:23:49 04/04/20 24 04/04/2024 COMPR EHENS ANTONIO METAB OLIC PANEL sodium 142 mmol/ L 136-14 5 normal Not Available [address] [place], [address] 04/04/2024 21:23:49 04/04/20 24 04/04/2024 COMPR EHENS ANTONIO METAB OLIC PANEL potassium 4.0 mmol/ L 3.5-5. 1 normal Not Available [address] [place], [address] 04/04/2024 21:23:49 04/04/20 24 04/04/2024 COMPR EHENS ANTONIO METAB OLIC PANEL chloride 103 mmol/ L 98-107 normal Not Available [address] [place], [address] 04/04/2024 21:23:49 04/04/20 24 04/04/2024 COMPR EHENS ANTONIO METAB OLIC PANEL CO2 27.8 mmol/ L 21.0-3 2.0 normal Not Available [address] [place], [address] 04/04/2024 21:23:49 04/04/20 24 04/04/2024 COMPR EHENS ANTONIO METAB OLIC PANEL anion gap 11.2 mmol/ L 3-11 high Not Available [address] [place], [address] 04/04/2024 21:23:49 04/04/20 24 04/04/2024 COMPR EHENS ANTONIO METAB OLIC PANEL AST 23 U/L 15-37 normal Not Available [address] [place], [address] 04/04/2024 21:23:49 04/04/20 24 04/04/2024 COMPR EHENS ANTONIO METAB OLIC PANEL ALT 35 U/L 14-59 normal Not Available Reece mott [address] [place], [address] 04/04/2024 21:23:49 04/04/20 24 04/04/2024 TSH TSH 2.61 uIU/m L 0.36-3 .74 normal Not Available [address] [place], [address] 04/04/2024 21:23:50 04/04/20 24 04/04/2024 VITAM IN D 25 TOTAL vitamin D 25 total 42.3 NG/mL 30-100 normal Not Available [address] [place], [address] 04/04/2024 21:23:50 04/04/20 24 04/04/2024 TSH TSH 2.61 uIU/m L 0.36-3 .74 normal Not Available [address] [place], [address] 04/05/2024 16:39:55 04/04/20 24 04/04/2024 MICRO ALBUM IN microalbumin 90.4 mg/L 1.30-2 0.0 high Not Available [address] [place], [address] 04/05/2024 16:39:57 04/04/20 24 04/04/2024 MICRO ALBUM IN creatinine urine 43.66 mg/dL Not Available [address] [place], [address] 04/05/2024 16:39:57 04/04/20 24 04/04/2024 MICRO ALBUM IN microalb ug/mg crea 207.1 ug/mg _cr Not Available [address] [place], [address] 04/05/2024 16:39:57 04/04/20 24 04/04/2024 HEMOG LOBIN A1C hemoglobin A1C 7.3 % <5.7 high Not Available [address] [place], [address] 04/05/2024 16:39:57 04/04/20 24 04/04/2024 drug scree n, urine Amphetamines : negati ve Not Available [address], [address], 04/04/2024 13:18:53 04/04/20 24 04/04/2024 drug scree n, urine Barbiturates : negati ve Not Available [address], [address], 04/04/2024 13:18:53 04/04/20 24 04/04/2024 drug scree n, urine BUP: negati ve Not Available [address], [address], 04/04/2024 13:18:53 04/04/20 24 04/04/2024 drug scree n, urine Benzodiazepi nsow: negati ve Not Available [address], [address], 04/04/2024 13:18:53 04/04/20 24 04/04/2024 drug scree n, urine Cocaine: negati ve Not Available [address], [address], 04/04/2024 13:18:53 04/04/20 24 04/04/2024 drug scree n, urine EDDP (Methadone Metabolite) negati ve Not Available [address], [address], 04/04/2024 13:18:53 04/04/20 24 04/04/2024 drug scree n, urine (MET) Methamphetam ine: negati ve Not Available [address] [place], [address], 04/04/2024 13:18:53 04/04/20 24 04/04/2024 drug scree n, urine MDMA: negati ve Not Available [address], [address], 04/04/2024 13:18:53 04/04/20 24 04/04/2024 drug scree n, urine MTD (Methadone): negati ve Not Available [address], [address], 04/04/2024 13:18:53 04/04/20 24 04/04/2024 drug scree n, urine Lky127 (Opiate): negati ve Not Available [address], [address], 04/04/2024 13:18:53 04/04/20 24 04/04/2024 drug scree n, urine OXY (Oxycodone): positi ve Not Available [address], [address], 04/04/2024 13:18:53 04/04/20 24 04/04/2024 drug scree n, urine TCA: negati ve Not Available [address], [address], 04/04/2024 13:18:53 04/04/20 24 04/04/2024 drug scree n, urine THC: negati ve Not Available [address], [address], 04/04/2024 13:18:53 04/23/20 24 04/25/2024 URINE CULTU RE urine culture Not Available [address] [place], [address] 04/25/2024 09:33:06 04/23/20 24 04/25/2024 URINE CULTU RE urine culture colon ies/m L Not Available [address] [place], [address] 04/25/2024 09:33:06 04/23/20 24 04/26/2024 URINE CULTU RE urine culture Not Available [address] [place], [address] 04/26/2024 08:24:05 04/23/20 24 04/26/2024 URINE CULTU RE urine culture colon ies/m L Not Available [address] [place], [address] 04/26/2024 08:24:05 04/23/20 24 04/23/2024 urina lysis , dipst ick Leukocytes Modera te Not Available [address], [address], 04/23/2024 14:05:13 04/23/20 24 04/23/2024 urina lysis , dipst ick Nitrite negati ve Not Available [address], [address], 04/23/2024 14:05:13 04/23/20 24 04/23/2024 urina lysis , dipst ick Urobilinogen .2 Not Available [address], [address], 04/23/2024 14:05:13 04/23/20 24 04/23/2024 urina lysis , dipst ick Protein Trace Not Available [address], [address], 04/23/2024 14:05:13 04/23/20 24 04/23/2024 urina lysis , dipst ick pH 5.0 Not Available [address], [address], 04/23/2024 14:05:13 04/23/20 24 04/23/2024 urina lysis , dipst ick Blood Large Not Available [address], [address], 04/23/2024 14:05:13 04/23/20 24 04/23/2024 urina lysis , dipst ick Specific Arbon 1.010 Not Available [address], [address], 04/23/2024 14:05:13 04/23/20 24 04/23/2024 urina lysis , dipst ick Ketone Negati ve Not Available [address], [address], 04/23/2024 14:05:13 04/23/20 24 04/23/2024 urina lysis , dipst ick Bilirubin Negati ve Not Available [address], [address], 04/23/2024 14:05:13 04/23/20 24 04/23/2024 urina lysis , dipst ick Glucose 2000+ Not Available [address], [address], 04/23/2024 14:05:13 04/23/20 24 04/23/2024 urina lysis , dipst ick Appearance Cloudy Not Available [address], [address], 04/23/2024 14:05:13 04/23/20 24 04/23/2024 urina lysis , dipst ick Color Yellow Not Available [address] [place], [address], 04/23/2024 14:05:13 05/15/2005/15/2024 urina lysis , dipst ick Leukocytes Trace Not Available [facility] [address] [place], [address], 05/15/2024 10:11:01 05/15/2005/15/2024 urina lysis , dipst ick Nitrite negati ve Not Available [facility] [address] [place], [address], 05/15/2024 10:11:01 05/15/2005/15/2024 urina lysis , dipst ick Urobilinogen .2 Not Available [facility] [address] [place], [address], 05/15/2024 10:11:01 05/15/2005/15/2024 urina lysis , dipst ick Protein Negati ve Not Available [facility] [address] [place], [address], 05/15/2024 10:11:01 05/15/2005/15/2024 urina lysis , dipst ick pH 6.0 Not Available [address] [place], [address], 05/15/2024 10:11:01 05/15/2005/15/2024 urina lysis , dipst ick Blood Negati ve Not Available [address], [address], 05/15/2024 10:11:01 05/15/20 24 05/15/2024 urina lysis , dipst ick Specific Arbon 1.010 Not Available [facility] [address] [place], [address], 05/15/2024 10:11:01 05/15/20 24 05/15/2024 urina lysis , dipst ick Ketone Negati ve Not Available [facility] [address] [place], [address], 05/15/2024 10:11:01 05/15/20 24 05/15/2024 urina lysis , dipst ick Bilirubin Small Not Available [address] [place], [address], 05/15/2024 10:11:01 05/15/20 24 05/15/2024 urina lysis , dipst ick Glucose 2000+ Not Available [address] [place], [address], 05/15/2024 10:11:01 05/15/20 24 05/15/2024 urina lysis , dipst ick Appearance Slight ly Cloudy Not Available [facility] [address] [place], [address], 05/15/2024 10:11:01 05/15/20 24 05/15/2024 urina lysis , dipst ick Color Yellow Not Available [address], [address], 05/15/2024 10:11:01 Result Notes None recorded. Problems Name Status Onset Date Resolution Date Notes Provider Name and Address Organization Details Recorded Time Amnesia Active PATITO Shankar [facility] 4 18:56:28 Gastroesophage al reflux disease without esophagitis Active PATITO Shankar - [facility] 4 19:01:40 Senile hyperkeratosis Completed 12/27/2023 Problem Code: L82.1; Problem Code Type: ICD-10; Efren Orozco [facility] 4 19:08:33 [facility] 4 19:05:19 Renal disorder due to type 2 diabetes mellitus Active [facility] 4 19:09:47 Other idiopathic peripheral neuropathy NOS Active Not Available [facility] 3 04:42:37 Obesity Active [facility] 4 19:06:06 Vitamin D deficiency [facility] 4 19:07:32 History of urinary stone Active [facility] 4 19:02:58 Chronic pain [facility] 4 18:59:02 Retinopathy due to type 2 diabetes mellitus Completed 12/27/2023 Problem Code: E11.319; Problem Code Type: ICD-10; Efren Orozco [facility] 4 19:09:39 Elevated blood-pressure reading without diagnosis of hypertension Active 2017 [facility] 4 19:00:20 Counseling Completed 201702/26/2018 Problem Code: Z71.89; Problem Code Type: ICD-10; Not Available [facility] 3 04:42:38 Blood chemistry outside reference range Completed 201512/27/2023 Problem Code: R79.89; Problem Code Type: ICD-10; Efrenalisha Orozco [facility] 4 18:57:49 Psoriasis Active 2017 [facility] 4 19:07:20 [facility] of [facility]ariatric surgical procedure [facility] 4 19:02:28 History of gynecological disorder Active [facility] 4 19:02:48 History of transient ischemic attack Active [facility] 4 19:03:02 Dysplasia of vagina Active [facility] 4 19:00:12 Cervical intraepithelia l neoplasia grade 1 Completed 12/27/2023 Problem Code: N87.0; Problem Code Type: ICD-10; [facility] 4 18:58:51 Pain in lower limb Active 2017 [facility] 4 19:07:05 Long-term current use of drug therapy Active 2017 [facility] 4 19:05:24 Acute stress disorder Completed 201702/19/2019 Problem Code: F43.0; Problem Code Type: ICD-10; Not Available formerly [facility] 3 04:42:40 Chronic ulcer of foot Completed 201701/17/2019 11/17/2018 - Comments only - Ruth Munoz APRN, [employer] - Improving. Continues to follow with podiatry. Problem Code: L97.529; Problem Code Type: ICD-10; Not Available formerly [facility] 3 04:42:40 Swelling [facility] 4 19:07:48 Candidiasis Active 2018 under breasts [facility] 4 18:58:12 Foot ulcer due to type 2 diabetes mellitus Active 2018 [facility] 4 19:01:31 Family disruption Active 2018 [facility] 4 19:00:34 [facility]algia of left ear [facility] 4 19:06:35 Disorder of ear Completed 201907/10/2020 Problem Code: H93.8x9; Problem Code Type: ICD-10; Not Available [facility] 3 04:42:41 Disorder of sacrum Completed 202002/13/2021 Not Available [facility] 3 04:42:41 Cellulitis of finger Completed 202003/07/2021 02/05/2021 - Comments only - Ruth Munoz APRN, [employer] - L 3rd finger Advised soaking 5x [...] L03.019; Problem Code Type: ICD-10; Not Available formerly [facility] 3 04:42:41 Genitourinary symptoms Completed 202003/07/2021 Problem Code: R39.9; Problem Code Type: ICD-10; Not Available formerly [facility] 3 04:42:41 Myoneural disorder Active 2020 Efren pichardo, [facility] 4 19:05:56 Anorectal disorder Completed 202005/07/2021 Problem Code: K62.89; Problem Code Type: ICD-10; Not Available formerly [facility] 3 04:42:42 Family history of malignant neoplasm of digestive organ Completed 202012/27/2023 Problem Code: Z80.0; Problem Code Type: ICD-10; Efren pichardo, [facility] 4 19:01:22 Disorder of skin and/or subcutaneous tissue Completed 202006/17/2021 Problem Code: L98.9; Problem Code Type: ICD-10; Not Available [facility] 3 04:42:42 Digestive system finding Completed 202012/27/2023 Problem Code: R19.8; Problem Code Type: ICD-10; Efren Orozco [facility] 4 18:59:58 History of polyp of colon Completed 201712/27/2023 Problem Code: Z86.010; Problem Code Type: ICD-10; Efren Orozco [facility] 4 19:04:48 Genitourinary symptoms Completed 202103/09/2022 Problem Code: R39.9; Problem Code Type: ICD-10; Not Available [facility] 3 04:42:43 Acute pharyngitis Completed 202104/08/2022 Problem Code: J02.9; Problem Code Type: ICD-10; Not Available [facility] 3 04:42:43 Streptococcal sore throat Completed 202104/09/2022 Problem Code: J02.0; Problem Code Type: ICD-10; Not Available [facility] 3 04:42:43 Vaccine declined by patient [facility] 4 19:07:41 Pain of left knee joint Active 2022 [facility] 4 19:07:11 Pain of right knee joint Completed 202202/17/2023 Problem Code: M25.561; Problem Code Type: ICD-10; Not Available formerly [facility] 3 04:42:43 Proteinuria Completed 202212/27/2023 Problem Code: R80.9; Problem Code Type: ICD-10; [facility] 4 19:10:36 Candidiasis of vagina Completed 201904/06/2023 Problem Code: B37.3; Problem Code Type: ICD-10; Not Available formerly [facility] 3 04:42:44 Pain in finger of left hand Completed 202101/04/2023 Problem Code: M79.645; Problem Code Type: ICD-10; Not Available formerly [facility] 3 04:42:44 Counseling Completed 201711/17/2018 Problem Code: Z71.89; Problem Code Type: ICD-10; Not Available formerly [facility] 3 04:42:44 Acute non-infective otitis externa Completed 201702/19/2019 Problem Code: H60.502; Problem Code Type: ICD-10; Not Available formerly [facility] 3 04:42:44 Chronic sinusitis Completed 202204/06/2023 Problem Code: J32.9; Problem Code Type: ICD-10; Not Available formerly [facility] 3 04:42:45 Polyneuropathy Completed 201711/17/2018 Problem Code: G62.9; Problem Code Type: ICD-10; Not Available formerly [facility] 3 04:42:45 Acute conjunctivitis Completed 202204/06/2023 Problem Code: H10.30; Problem Code Type: ICD-10; Not Available formerly [facility] 3 04:42:45 of relative Active 2022 Efrenalisha Orozco [facility]. 4 18:59:10 Diabetes mellitus [facility] 4 18:59:17 Ankle edema Active 2023 Efrenalisha Orozco [facility]. 4 18:56:40 Parathyroid hormone measurement Active [facility] 4 18:57:42 Dysplasia of cervix Active Efren Orozco null, [facility]. 4 18:58:46 Abdominal pain Active 2020 Efren pichardo, [facility]. 4 18:59:54 Family history of cancer of colon [facility] 4 19:01:18 Adenomatous polyp of colon Active 2017 Tubular adenoma 2018. Poor prep 08/06/21; Cologuard neg 01/09/22. [facility] 4 19:04:24 Seborrheic keratosis Active Efrenalisha Orozco [facility] 4 19:08:30 Retinopathy due to diabetes mellitus Active Efrenalisha Orozco [facility] 4 19:09:31 Albuminuria [facility] 20[facility] 4 19:10:34 Cough Active 2023 DILLAN MORAN, [employer] [address], [place], [place], [address] , [facility] 4 16:33:03 Prolapse of uterus with rectocele Active 2023 SHIRA PACHECO [address], [place], [address] , [facility] 4 15:09:54 Hereditary motor and sensory neuropathy Active 2023 JOAN CARLSON MA null, [facility] 4 13:22:07 Neuropathy due to diabetes mellitus Active 2023 JOAN CARLSON MA null, [facility] 4 13:22:22 Acute urinary tract infection Active 2023 SHIRA PACHECO [address], [place], [address] , [facility] 4 13:23:31 Dysuria Active [address], [place], [address] , [facility] 4 13:30:02 Dyslipidemia Active 2023 JOAN CARLSON MA null, [facility] 4 10:57:35 Urogenital finding Active [address], [facility] [address] , [facility] 4 10:44:09 Urinary symptoms Active [address], [facility] [address] [facility] 4 10:46:01 Problem Notes None recorded. [...] 2017 active Not Available Not Available Not Yuniorai felisha Munguia es Complete (iron) chewable tablet Take 2 [...] x 3 months, then Qweek 07/27 completed [facility] Not Available Not Available Not [...] Not Available Not Available No t Available [place] es Complete (iron) 18 mg iron chewable [...] per endo Not Available Not Available Not Avai labnighat Pengliviaton es Complete chewable tablet take 2 [...] completed Not Available Not Available Not Available [place] es Complete (ferrous sulfate) 10 mg iron chewable tablet Take by oral route for 90 days. 12/28 completed Not Available Not Available Not Available Vitals Date Recorded Body height Body mass index (BMI) Body weight Oxygen saturation Oxygen saturation in Arterial blood by Pulse oximetry Heart rate Systolic blood pressure Diastolic blood pressure Provider Name and Address Organization Details Last Updated DateTime 4 157.48 cm 27.6 kg/m2 96235.7 3 g 97 % 97 % 94 /min 104 mm[Hg] 60 mm[Hg] SANTOSH GILES RN [facility], [facility] 4 11:03:01 Date Recorded Body height Body mass index (BMI) Body weight Body temperature Oxygen saturation Oxygen saturation in Arterial blood by Pulse oximetry Heart rate Systolic blood pressure Diastolic blood pressure Provider Name and Address Organization Details Last Updated DateTime 4 157.48 cm 28.4 kg/m2 82885.9 2 g 98 [degF] 97 % 97 % 76 /min 108 mm[Hg] 62 mm[Hg] TEREZA CARLOS LPN [facility] 4 15:55:24 Date Recorded Body height Body mass index (BMI) Body weight Oxygen saturation Oxygen saturation in Arterial blood by Pulse oximetry Heart rate Systolic blood pressure Diastolic blood pressure Provider Name and Address Organization Details Last Updated DateTime 4 157.48 cm 28.5 kg/m2 20120.4 1 g 95 % 95 % 104 /min 112 mm[Hg] 64 mm[Hg] Magri coleman RN [facility], [facility] 4 13:02:44 Date Recorded Body height Body mass index (BMI) Body weight Body temperature Oxygen saturation Oxygen saturation in Arterial blood by Pulse oximetry Heart rate Systolic blood pressure Diastolic blood pressure Provider Name and Address Organization Details Last Updated DateTime 4 157.48 cm 28.9 kg/m2 45918.5 9 g 97.5 [degF] 96 % 96 % 92 /min 110 mm[Hg] 60 mm[Hg] SOURAV WAYNE MA [facility], [facility] 4 13:13:32 Date Recorded Body height Body mass index (BMI) Body weight Oxygen saturation Oxygen saturation in Arterial blood by Pulse oximetry Heart rate Body temperature Systolic blood pressure Diastolic blood pressure Provider Name and Address Organization Details Last Updated DateTime 157.48 cm 28.9 kg/m2 64909.5 9 g 98 % 98 % 83 /min 97.5 [degF] 110 mm[Hg] 72 mm[Hg] SOURAV WAYNE MA [facility] 10:08:16 Social History Question Answer Notes LastModified by Organizat ion Details LastModified Time Tobacco Smoking Status Never Smoker Margi Og RN null, [facility] 09/21/2023 10:52:50 What Was The Date Of Your Most Recent Tobacco Screening? 12/29/2023 Information not available 12/29/2023 Has Tobacco Cessation Counseling Been Provided? No Information not available 12/29/2023 Do You Or Have You Ever Used Any Other Forms Of Tobacco Or Nicotine? No [email or web address] Information not available 12/29/2023 Sex: Female Functional [...] Encounter Closed Date Diagnosis/Indication Diagnosis SNOMED-CT Code [id number] SHIRA PACHECO [address] [address] 09/21/2023 10:30:46 09/21/2023 11:42:13 Renal disorder due to type 2 diabetes mellitus 797912706 Chronic pain 54358522 History of gynecological disorder 565200184 [id number] [address] [address] 12/14/2023 08:52:37 12/14/2023 11:34:05 Chronic pain 48672081 Psoriasis 3156829 Gastroesop hageal reflux disease without esophagitis 228787671 Ankle edema 26041227 History of bariatric surgical procedure 639775678 Screening colonoscopy [address] [address] 12/29/2023 10:42:56 12/29/2023 12:34:03 Pre-surgery evaluation 087985703 4695548 [address] [address] 01/03/2024 15:19:29 01/03/2024 17:15:13 Cough 76251138 7277487 [address] [address] 04/04/2024 12:49:19 04/04/2024 14:42:52 Chronic pain 55330634 Diabetes mellitus 877457 09 Psoriasis 0378963 Prolapse o f uterus with rectocele 2364293230 7077799 [address] [address] 04/23/2024 12:45:50 04/23/2024 13:37:58 Acute urinary tract infection 943114390 7580869 [address] [address] 05/15/2024 09:49:00 05/15/2024 10:38:47 Urinary symptoms 784837674 Diabetes mellitus 053320 09 Health Concerns Section Related Observation LastModified by Organization Detai ls LastModified Time None Recorded Concern Status LastModified by Organization Details LastModified Time None Recorded Advance Directives Directive None Recorded Payers Encounter Date Sequence Insurance Name Policy Number Policy Lema Covered Member ID Lema Member ID Guarantor Name 12/29/2023 1 [facility] (MEDICAID) Martha Benoit [id number] Martha Benoit 01/03/2024 1 [employer] (MEDICAID) Martha Benoit [id number] Martha Benoit 04/04/2024 1 [employer] (MEDICAID) Martha Benoit [id number] Martha Cy 04/23/2024 1 [employer] (MEDICAID) Martha Benoit [id number] Martha Benoit 05/15/2024 1 [employer] (MEDICA[employer]) Martha Benoit [id number] Martha Benoit Notes Date Note Type Note Provider Name and Address Organization Details Recorded Time 12/29/2023 text/html HPI Notes: Pre-O p [facility] Reported by patient. Surgery to be Performed: rectocele and cystocele repair Risk Factors no cognitive impairment; no malnutrition; no frailty; no obstructive sleep apnea; non-smoker; no alcohol misuse; no illicit drug use; no chronic cardiopulmonary condition; not obese; functional impairment (uses a walker); unable to climb a flight of stairs (exercise capacity <4 METS) (physically unable d/t neuropathies) Anesthesia hx: no hx of anesthesia complications; no allergy to anesthetic agents; no family history of anesthesia complications Functional Ability: able to perform heavy work around the house; cannot walk up stairs Post-Op Support: arranged; has family/friends for assistance Surgery to be performed by Dr Whitley at [facility] on 01/18/2024. ERIC GOMEZ, SPRAY DYER [address], [place], [address], [facility]. 12/29/2023 12:39:37 01/03/2024 text/html HPI Notes: Martha is here for a cough and a chest rattle that she has had about 2 weeks, it started out feeling like she had the flu, fatigue, aching, her 14-year-old granddaughter who lives with her had similar, other small grandchildren coming to visit also with similar. In general she feels better except for this lingering tight wheezy cough with a rattle in her chest. No fevers, sweats, she tried an rzke-jah-pjqhxhw cough medicine from the dollar store which helps with cough at nighttime Blood sugars are okay 100? 1 35 No GI symptoms SHIRA AVALOS [address], [place], [address], [facility]. 01/03/2024 18:36:36 04/04/2024 text/html HPI Notes: Rizwana posadas presents for management of chronic pain and type 2 diabetes. Patient is a 58-year-old female who underwent prolapse surgery at the end of December for both cystocele and rectum prolapse. The recovery is ongoing and expected to take a year for full improvement. Patient has a history of unsuccessful colonoscopies due to difficulty cleaning out the colon. Despite extended preparation and fasting, the colonoscopies have been unsuccessful. Patient has a history of chronic pain (G8929) and type 2 diabetes mellitus without complications (E119). She is currently managing her diabetes with a sliding scale insulin regimen and checks her blood sugar three times a day. - Patient reports that colon cancer runs in her family SH - Patient does not have a smartphone - Patient is on SSI with a limited income of $900 per month - Limited income and healthcare access - Transportation issues for medical appointments SHIRA PACHECO Dr, [place], [address], [facility], [facility]. 04/04/2024 15:11:36 04/23/2024 text/html HPI Notes: 58-year-old female with UTI symptoms. Reports she spoke provide last week and was treated over the phone 3 days of Bactrim. Patient reports she spoke with provided and explained she does not respond to just 3 days of treatment and wanted additional therapy. Patient was unable to come in to give urine sample and therefore treated with just 3 days of Bactrim. Patient completed Bactrim several days ago and symptoms have not fully subsided. Urinalysis in the office today is indicative UTI. Patient denies any fever, chills, Shortness of breath, chest pain, N/V/D. Patient is reporting some dysuria, frequency and a feeling like pressure/fullness in her bladder. SHIRA PACHECO [address], [place], [address], [facility]. 04/23/2024 14:59:19 05/15/2024 text/html HPI Notes: Rizwana posadas reports [...] when making appt, symptoms have resolved today ERIC GOMEZ, SPRAY D[place]ER [address], [place], [address], [facility] 05/15/2024 10:46:54 OBGyn Episode No OBEpisode recorded.
--- OUTSIDE RECORDS SUMMARY | 2024-05-15 11:00 | XMS_ITS | Encounter Summary ---
Author Organization [facility] Address [address] [place] [address] Care Team Providers Care Teaching Assistant Name Role Phone Katia Haywood Primary Care Provider [phone] Encounter Details Date Type Department Care Team (Late st Contact Info) Description 12/28/2023 9:40 EST Phlebotomy Only [facility] Laboratory Services - [facility] ([address] [id number] Rectocele Social History Tobacco Use Types Packs/Day Years [...] No 03/11/2016 documented as of this encounter Plan of Treatment Upcoming Encounters Date Type Department Care Team (Late st Contact Info) Description 05/22/2024 10:00 EDT Office Visit [facility] Foot & Ankle Program - [facility] [address] [facility] [place] [address] Edwige Keller DPM [address] [place] [address] 07/18/2024 13:00 EDT Procedure visit [facility] Women's Services - [facility] [address] [place] [address] Jessica Murray NP [address] [facility], [facility], [address] [place] [address] documented as of this encounter Procedures Procedure Name Priority Date/Time Associated Diagnosis Comments COMPLETE BLOOD COUNT Routine 12/28/2023 9:27 EST Rectocele BASIC METABOLIC PANEL (BMP) Routine 12/28/2023 9:27 EST Rectocele documented in this encounter Results * (ABNORMAL) BASIC METABOLIC PANEL (BMP) (12/28/2023 9:27 EST) Sodium 143 136 - 145 mmol/L 12/28/2023 11:26 [facility] Potassium 4.1 3.5 - 5.0 mmol/L 12/28/2023 11:26 [facility] Chloride 103 96 - 110 mmol/L 12/28/2023 11:26 [facility] CO2 Total 29 22 - 32 mmol/L 12/28/2023 11:26 [facility] Anion Gap 11 5 - 14 mmol/L 12/28/2023 11:26 [facility] Glucose 107(H) 70 - 99 mg/dl 12/28/2023 11:26 [facility] Calcium 8.8 8.5 - 10.5 mg/dL 12/28/2023 11:26 [facility] BUN 9(L) 10 - 26 mg/dL 12/28/2023 11:26 [facility] Creatinine 0.35(L) 0.52 - 1.04 mg/dL 12/28/2023 11:26 [facility] eGFR 117 >60 mL/min/1.73 m2 12/28/2023 11:26 [facility] Blood VENOUS BLOOD / Unknown Venipuncture / Unknown 12/28/2023 9:27 EST 12/28/2023 9:27 EST Chula Whitley MD CHEMISTRY & BLOOD GA S ORDERABLES [facility] [address] [id number] * COMPLETE BLOOD COUNT (12/28/2023 9:27 EST) WBC 6.98 4.00 - 12.40 K/cmm 12/28/2023 10:58 [facility] RBC 4.54 3.86 - 5.04 M/cmm 12/28/2023 10:58 [facility] Hemoglobin 12.9 11.6 - 15.2 g/dL 12/28/2023 10:58 [facility] HCT 39.1 34.9 - 44.4 % 12/28/2023 10:58 [facility] MCV 86 81 - 98 fL 12/28/2023 10:58 [facility] MCH 28.4 26.7 - 33.3 pg 12/28/2023 10:58 [facility] MCHC 33.0 32.1 - 35.9 g/dL 12/28/2023 10:58 [facility] RDW-CV 12.4 <14.7 % 12/28/2023 10:58 [facility] RDW-SD 39.1 <50.4 fl 12/28/2023 10:58 [facility] PLT 230 141 - 377 K/cmm 12/28/2023 10:58 [facility] MPV 11.2 9.5 - 12.7 fL 12/28/2023 10:58 [facility] Blood VENOUS BLOOD / Unknown Venipuncture / Unknown 12/28/2023 9:27 EST 12/28/2023 9:27 EST Chula Whitley MD HEMATOLOGY & PF4 ORD ERABLES [facility] [address] [place] [address] documented in this encounter Visit Diagnoses Diagnosis Rectocele documented in this encounter Care Teams Teaching Assistant Relationship Specialty Start Date End Date Katia Haywood [address] [place] [address] PCP - General Family Medicine - Primary Care 06/20/23 documented as of this encounter
--- OUTSIDE RECORDS SUMMARY | 2024-05-15 11:00 | XMS_ITS | Encounter Summary ---
Author Organization [facility] Address [address] [place] [address] Care Team Providers Care Auto Body Repair Technician Name Role Phone Katia Haywood Primary Care Provider [phone] Reason for Visit * Reason Onset Date Comments Surgery Scheduling 01/17/2024 Encounter Details Date Type Department Care Team (Late st Contact Info) Description 01/17/2024 Telephone [facility] Pelvic Medicine and Reconstructive Surgery - Medical Office Building [address] [address] Chelsi Rivera MD [address] [place] [address] Medical Office [facility], [address] [address] Surgery Scheduling Social History Tobacco Use Types Packs/Day Years [...] No 03/11/2016 Cognitive Status Response Date of Assess ent Because of a physical, menta l, or emotional condition, does this person have serious difficulty concentrating, remembering, or making decisions? No 03/11/2016 documented as of this encounter Miscellaneous Notes * Telephone Encounter - ElmerBebei - 01/17/2024 1018 EDT Spoke with the patient on 01/17/24. The patient was instructed to check in at 6:30 AM for a procedure at 8:30 AM on 01/18/24 @ the [facility]. Prep for Surgery: Have no solid food or liquids containing fats, including milk, after midnight before your procedure. Only water, Apple Juice or Gatorade until 4 hours before your surgery. You can have clear liquids until 4:30 AM. 3. Pt was instructed to have support person stay with her and bring her home. documented in this encounter Plan of Treatment Upcoming Encounters Date Type Department Care Team (Late st Contact Info) Description 05/22/2024 10:00 EDT Office Visit [facility] Foot & Ankle Program - [address] [address] Edwige Keller DPM [address] [place] [address] 07/18/2024 13:00 EDT Procedure visit [facility] Women's Services - [facility] [address] [place], [place] [id number] Jessica Murray NP [address] [facility], [address] [place] [address] documented as of this encounter Visit Diagnoses Not on filedocumented in this encounter Care Teams Auto Body Repair Technician Relationship Specialty Start Date End Date Katia Haywood [address] [place] [phone] PCP - General Family Medicine - Primary Care 06/20/23 documented as of this encounter
--- OUTSIDE RECORDS SUMMARY | 2024-05-15 11:00 | XMS_ITS | Encounter Summary ---
Author Organization [facility] Address [address] [place] [address] Care Team Providers Care Admissions Officer Name Role Phone Katia Haywood Primary Care Provider [phone] Reason for Visit * Reason Onset Date Comments Follow-up 10/06/2023 Encounter Details Date Type Department Care Team (Late st Contact Info) Description 10/06/2023 Telephone [facility] General Surgery - [facility] [address] [place], [place] [address] Chula Whitley MD 111 [facility], [address] [place] [address] Follow-up Social History Tobacco Use Types Packs/Day Years [...] encounter Miscellaneous Notes * Telephone Encounter - Sofía Fernandez RN - 10/10/2023 1336 EST TC to pt. Advised that another colo in 6 months is the rec, but she can have surgery before that. Advised pt of Dr. Whitley's message. Pt reports that PFPT is not possible right now with the winter weather and she will consider resuming PT in the spring. Advised pt she can discuss this further with Dr. Whitley/Nicole at her post-op appt. The patient indicates understanding of these issues and agrees with the plan. * Telephone Encounter - Sofía Fernandez RN - 10/09/2023 0605 EST Images from the original note were not included. Chula Whitley MD You5 hours ago (8:28) Great, thank you! Can you please get path from polypectomy. Looks like they want her to have another socpe in 6 mos due to poor prep, but this will not impact our OR unless the polyp path is really weird. Looks like kayli/merlin Rivera is planning cystocele repair, I will do rectocele repair at the same time. This will not help her pelvic floor dysfunction so she should def continue PFPT. Thanks, K TC to [facility]. There is not polyp path from most recent colo but they will fax over path from07/15/22 colo. * Telephone Encounter - Maricel Dockery - 10/06/2023 4053 EST Patient called to say the colonoscopy she had showed nothing, asking what the next step would be? documented in this encounter Plan of Treatment Upcoming Encounters Date Type Department Care Team (Late st Contact Info) Description 05/22/2024 10:00 EDT Office Visit [facility] Foot & Ankle Program - [address] [place] [address] Edwige Keller DPM [address] [place] [address] 07/18/2024 13:00 EDT Procedure visit [facility] Women's Services - [facility] [address] [place], [place] [phone] Jessica Murray NP [address] [facility], [address] [place] [address] documented as of this encounter Visit Diagnoses Not on filedocumented in this encounter Care Teams Admissions Officer Relationship Specialty Start Date End Date Katia Haywood [address] [place] [phone] PCP - General Family Medicine - Primary Care 06/20/23 documented as of this encounter
--- OUTSIDE RECORDS SUMMARY | 2024-05-15 11:00 | XMS_ITS | Encounter Summary ---
Author Organization [facility] Address [address] [place] [address] Care Team Providers Care Religious Education Coordinator Name Role Phone Katia Haywood Primary Care Provider [phone] Reason for Visit * Reason Onset Date Comments Surgery Scheduling 08/31/2023 Encounter Details Date Type Department Care Team (Late st Contact Info) Description 08/31/2023 Telephone [facility] Pelvic Medicine and Reconstructive Surgery - Medical Office Building [address] [address] Chelsi Rivera MD [address] [place] [address] Medical Office [facility], [address] [address] Surgery Scheduling Social History Tobacco [...] encounter Miscellaneous Notes * Telephone Encounter - Anny Payne - 08/31/2023 2067 EST Pt is re-scheduled for surgery 01/18/[address] Chelsi Rivera MD & Dr Chula Whitley. PAT, Pre -op & POV scheduled Per Surgeon case information: Case: Dr. Rivera's part: anterior colporrhaphy, cystoscopy Dr. Whitley: posterior colporrhaphy Pre-op with PCP: yes Pre-op/Consents with Surgeon: yes w/PA Labs: no EKG: no Urine culture: no POV: 4 weeks w/Dr. Rivera/Dr. Whitley Special instructions/testing: documented in this encounter Plan of Treatment Upcoming Encounters Date Type Department Care Team (Late st Contact Info) Description 05/22/2024 10:00 EDT Office Visit [facility] Foot & Ankle Program - [address] [place] [address] Edwige Keller [address] [address] 07/18/2024 13:00 EDT Procedure visit [facility] Women's Services - [facility] [address] [place], [place] [phone] Jessica Murray NP 111 [facility], [address] [place] [address] documented as of this encounter Visit Diagnoses Not on filedocumented in this encounter Care Teams Religious Education Coordinator Relationship Specialty Start Date End Date Katia Haywood [address] [place] [phone] PCP - General Family Medicine - Primary Care 06/20/23 documented as of this encounter
--- OUTSIDE RECORDS SUMMARY | 2024-05-15 11:00 | XMS_ITS | Encounter Summary ---
Author Organization [facility] Address [address] [place] [address] Care Team Providers Care Cyber Ops Planner Name Role Phone Katia Haywood Primary Care Provider [phone] Reason for Visit * Reason Onset Date Comments Other 12/27/2023 Encounter Details Date Type Department Care Team (Late st Contact Info) Description 12/27/2023 Telephone [facility] General Surgery - [facility] [address] [place], [place] [address] Chula Whitley MD 111 [facility], [address] [place] [address] Other Social History Tobacco Use Types Packs/Day Years [...] encounter Miscellaneous Notes * Telephone Encounter - Phylicia Venegas RN - 12/27/2023 1038 EST Spoke with Phylicia in Lab Customer Service, advised labs from May are the correct ones. * Telephone Encounter - Candace Butts - 12/27/2023 1013 EST Patient is coming in to lab tomorrow to have blood draw. ? Is the May order the correct one documented in this encounter Plan of Treatment Upcoming Encounters Date Type Department Care Team (Late st Contact Info) Description 05/22/2024 10:00 EDT Office Visit [facility] Foot & Ankle Program - [address] [place] [address] Edwige Keller DPM [address] [place] [address] 07/18/2024 13:00 EDT Procedure visit [facility] Women's Services - [address] [id number] Jessica Murray NP 111 [facility], [address] [place] [address] documented as of this encounter Visit Diagnoses Not on filedocumented in this encounter Care Teams Cyber Ops Planner Relationship Specialty Start Date End Date Katia Haywood [address] [place] [phone] PCP - General Family Medicine - Primary Care 06/20/23 documented as of this encounter
--- OUTSIDE RECORDS SUMMARY | 2024-05-15 11:00 | XMS_ITS | Encounter Summary ---
Author Organization [facility] Address [address] [place] [address] Care Team Providers Care Intensive Care Unit Registered Nurse Name Role Phone Katia Haywood Primary Care Provider [phone] Reason for Visit * Reason Comments Post-OP Follow Up Wants to ask if it's sewed up where it should be. Afraid to try to push to go bathroom, afraid it's going to push down again. Asking if it's sewed up far enough. Could be things are still swollen, before surgery felt bulge when going to bathroom and wants to make sure she doesn't create another bulge. Encounter Details Date Type Department Care Team (Late st Contact Info) Description 02/14/2024 10:15 EDT Post-op Visit [facility] Pelvic Medicine and Reconstructive Surgery - Medical Office [facility] [address] [place] [address] Chula Whitley MD [address] [facility], [address] [place] [address] Rectocele (Primary Dx) Social History Tobacco Use Types Packs/Day Years [...] No 03/11/2016 documented as of this encounter Progress Notes * Chula Whitley MD - 02/14/2024 1015 EDT Colorectal Surgery Chief Complaint: rectocele HPI: Patient is a 58 y.o. female being seen at the request of Dr. Rivera for evaluation of fecal incontinence. Patient has a h/o DM, had gastric bypass surgery, psoriasis, no longer on humira, on percocet (10/ 6 times/day--prescribed by [facility] PCP) Doing well. No incontinence. 01/18/24 ant/post repair with Dr. Rivera Follows with Dr. Rivera and Rosaura (UDT) Pt is concerned this may be related to her worsening undiagnosed Neurologic disease. 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 Pt states she was exposed to toxic sprays when playing in the [employer] as a child. As a teen, she noticed she couldn't keep up with other children her age when walking/running. Had significant weakness. 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 Pt now requires use of a walker for the past 3 yrs. In regards to her bowels, she is not constipated much at all other than breads, but can't seem to exert pressure to have a BM. BMs: Usually goes to the bathroom about an hour after she gets up. Helps to have fiber: fruits and veggies. Has type 4 and 5 consistency stool. Can have a hard time getting it out, but not bulge. Sits about 15 minute. Narrow caliber stool. Prior colonoscopy: about a year ago-- in [place]--had poor prep, one polyp found. Is planning to reschedule. Was having narrow caliber stool and these symptoms at this time. Has had multiple polyps in past HgbA1c: right around 5 PSHx: gastric bypass, LEEP, tubal ligation Possibly contributing meds: metformin, percocet Family history:father colon ca age 66, sister cervical ca, no IBD, + polyps No fecal incontinence Normal sensation to have BM: Yes Do you have pressure or a bulge in your vagina when you defecate: No Do you have urgency: No Any nighttime soiling or incontinence: No Obstetric History: : 4, Forceps/vacuum assistance: Yes Tears/episiotomy: Yes; through sphincter muscles: No What weight was your heaviest baby? 8 lbs 8 oz Review of Symptoms: Gen: no fevers, chills, sweats, no recent weight loss HEENT: no migraines, no changes in vision, no hearing loss CV: no CP or palpitations, able to climb a flight of stairs w/o difficulty Pulm: no SOB, no hx of asthma or inhaler use GI: no hx of constipation or diarrhea : no dysuria, urinary frequency or difficulty maintaining stream Musculoskeletal: no arthralgias or myalgias Neuro:+ weakness Endocrine: no thyroid problems, no diabetes Psych: no anxiety or depression Heme: no hx of bleeding or bruising easily Skin: no hx of rashes, eczema, or psoriasis Mobility: ambulates w/o difficulty no cane / walker/ or wheelchair PMH PSH Past Medical History: Diagnosis Date Activity, other involving cardiorespiratory exercise uses a walker , unable to do stairs reported 12/2023 Diabetes mellitus ([facility]) tx w/ insulin and oral meds last [...] urinary incontinence 12/2023 urgency, cystocele and rectocele Past Surgical History: Procedure Laterality Date CERVIX LESION DESTRUCTION 07/15/2009 GASTRIC BYPASS SURGERY 01/04/16 LEEP 07/15/2009 TUBAL LIGATION Social History Family history Social History Tobacco Use Smoking status: Never Smokeless tobacco: Never Substance Use Topics Alcohol use: Not Currently Family History Problem Relation Age of Onset Colon Cancer Father Diabetes Father Stroke Father Cervical Cancer Sister Diabetes Sister Heart Disease Sister [place] at age 42 = Diabetes Mother Diabetes Brother Diabetes Maternal Aunt Diabetes Maternal Uncle Current Outpatient Medications Medication baclofen (LIORESAL) 10 mg tablet canagliflozin (INVOKANA) 300 mg tablet ciclopirox (PENLAC) 8 % solution cyclobenzaprine (FLEXERIL) 10 mg tablet ergocalciferol (DRISDOL; VITAMIN D2) 1,250 mcg (50,000 unit) capsule estradioL (ESTRACE) 0.01 % (0.1 mg/gram) vaginal cream furosemide (LASIX) 40 mg tablet gabapentin (NEURONTIN) 300 mg capsule glipiZIDE (GLUCOTROL) 10 mg tablet insulin lispro (HUMALOG) 100 unit/mL injection levothyroxine (SYNTHROID) 25 mcg tablet lidocaine 5 % (LIDODERM) 5 % patch metformin (GLUCOPHAGE) 500 mg tablet nystatin (MYCOSTATIN) powder omeprazole (PRILOSEC) 20 mg capsule oxyCODONE (ROXICODONE) 5 mg immediate release tablet oxyCODONE-acetaminophen (PERCOCET) 10-325 mg per tablet pediatric multivitamin no.76 tablet,chewable secukinumab (COSENTYX, 2 SYRINGES,) 150 mg/mL syringe triamcinolone (KENALOG) 0.1 % ointment No current facility-administered medications for this visit. Allergies No Known Allergies Objective: There were no vitals taken for this visit. Physical Exam: Gen: awake, alert, oriented x 3 NAD Well-healed vaginal incisions. Well supported rectocele on digital rectal exam. Data Review: Labs: CBC: Lab Results Component Value Date WBC 6.98 12/28/2023 RBC 4.54 12/28/2023 HGB 12.9 12/28/2023 HCT 39.1 12/28/2023 PLT 230 12/28/2023 CMP: Lab Results Component Value Date GLUCOSEFINGE 187 (H) 12/01/2009 NA 143 12/28/2023 K 4.1 12/28/2023 CL 103 12/28/2023 CO2 29 12/28/2023 BUN 9 (L) 12/28/2023 CREATININE 0.35 (L) 12/28/2023 CALCIUM 8.8 12/28/2023 AST 21 04/26/2019 ALT 22 04/26/2019 ALKPHOS 109 04/26/2019 Cardiac: No results found for: CK, CKMBINDEX, TROPONINICoagulation: No results found for: PROTIME, INR, PTTABG: Assessment: Martha Benoit is a(n) 58 y.o. 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 Doing well status post rectocele repair. Follow-up on an as-needed basis. Chula Whitley MD 02/12/2024 14:04 documented in this encounter Plan of Treatment Upcoming Encounters Date Type Department Care Team (Late st Contact Info) Description 05/22/2024 10:00 EDT Office Visit [facility] Foot & Ankle Program - [address] [address] Edwige Keller DPM [address] [place] [phone] 07/18/2024 13:00 EDT Procedure visit [facility] Women's Services - [facility] [address] [place], [place] [phone] Jessica Murray NP [address] [facility], [address] [place] [address] documented as of this encounter Visit Diagnoses Diagnosis Rectocele- Primary documented in this encounter Care Teams Intensive Care Unit Registered Nurse Relationship Specialty Start Date End Date Katia Haywood [address] [place] [phone] PCP - General Family Medicine - Primary Care 06/20/23 documented as of this encounter
--- OUTSIDE RECORDS SUMMARY | 2024-05-15 11:00 | XMS_ITS | Encounter Summary ---
Author Organization [facility] Address [address] [place] [address] Care Team Providers Care Look Out Tower Fire Watcher Name Role Phone Katia Haywood Primary Care Provider [phone] Reason for Visit * Reason Comments Post-OP [...] Department Care Team (Latest Contact Info) Description 02/14/2024 10:15 EDT Post-op Visit [facility] Pelvic Medicine and Reconstructive Surgery - Medical Office Building [address] [address] Chelsi Rivera MD [address] [place] [address] Medical Office [facility], [address] [phone] Other female genital prolapse (Primary Dx) Social History Tobacco Use Types [...] as of this encounter Progress Notes * Chelsi Rivera MD - 02/14/2024 1015 EDT Pt here for post op check s/p anterior repair and cystoscopy 01/18/24 followed by posterior repair with Dr. Whitley. Pt doing well,no urinary urge/leakage. Discussed timed voiding. EXAM: vaginal incisions healing well, no prolapse. PDS sutures palpable. Encouraged to use vaginal estrogen cream 1-2 x/wk. Pt only used a few times prior to surgery. F/U prn documented in this encounter Plan of Treatment Upcoming Encounters Date Type Department Care Team (Late st Contact Info) Description 05/22/2024 10:00 EDT Office Visit [facility] Foot & Ankle Program - [address] [place], [place] [phone] Edwige Keller DPM [address] [place] [phone] 07/18/2024 13:00 EDT Procedure visit [facility] Women's Services - [facility] [address] [place], [place] [phone] Jessica Murray NP [address] [facility], [facility], [address] [place] [phone] documented as of this encounter Visit Diagnoses Diagnosis Other female genital prolapse- Primary documented in this encounter Care Teams Look Out Tower Fire Watcher Relationship Specialty Start Date End Date Katia Haywood [address] [phone] PCP - General Family Medicine - Primary Care 06/20/23 documented as of this encounter
--- OUTSIDE RECORDS SUMMARY | 2024-05-15 11:00 | XMS_ITS | Clinical Summary ---
Author Organization [facility] Address [address] [place] [address] Care Team Providers Care String Top Sealer Name Role Phone Katia Haywood Primary Care Provider [phone] Allergies No known active allergies Medications Medication [...] Problem Noted Date Diagnosed Date Diabetes mellitus ([facility]) 08/11/2014 Vitamin D deficiency 01/28/2010 Morbid obesity ([facility]) 01/22/2010 Mild dysplasia of cervix ([facility]) 06/26/2009 Overview: 06/2009, LEEP - [facility] - neg margins, and laser of posterior wall of the vagina persistent LGSIL 12/2009 ASCUS and pos HPV 06/2010, 11/2010, 05/2011, 11/2011 and 05/2012 were negative 02/2014 Neg pap, pos HPV 02/2015 NIL neg HPV 02/2016 NIL ,pos HPV /03/07 neg bx, neg ECC 03/13/17 pap neg, [...] out colpo - also declines vag E2) Encounters Date Type Department Care Team Description 04/05/2024 Refill [facility] Pelvic Medicine and Reconstructive Surgery - Medical Office [address] [address] Chelsi Rivera MD Medications Refill 02/14/2024 10:15 EDT Post-op Visit [facility] Pelvic Medicine and Reconstructive Surgery - Medical Office [address] [address] Chula Whitley MD Rectocele (Primary Dx) 02/14/2024 10:15 EDT Post-op Visit [facility] Pelvic Medicine and Reconstructive Surgery - Medical Office [address] [address] Chelsi Rivera MD Other female genital prolapse (Primary Dx) from Last 3 Months Surgical History Surgery Date Site/Laterality Comments LEEP 07/15/2009 CERVIX LESION DESTRUCTION 07/15/2009 TUBAL LIGATION GASTRIC BYPASS SURGERY 01/04/16 Medical History Medical History Date Comments Unspecified cerebral artery occlusion with cerebral infarction 2005 was found incidentally, no residual issues reported 12/2023 Diabetes mellitus ([facility]) tx w / insulin and oral meds last A1c 6. 4 reported 12/2023 GERD (gastroesophageal reflux disease) tx w/ meds , able to lay flat reported 12/2023 Hypothyroidism tx w/ meds Unspecified urinary incontinence 12/2023 urgency, cystocele and rectocele Rash psoriasis on leg s reported 12/2023 Activity, other involving ca rdiorespiratory exercise uses a walker , unable to do stairs reported 12/2023 Peripheral neuropathy bilat legs reported 12/2023 History of general anesthesia w/ o issue reported 12/2023 Exercise involving housework dis hes , no vacuuming d/t balance reported 12/2023 Family History Medical History Relation Comments Diabetes Brother Colon Cancer Father Diabetes Father Stroke Father Diabetes Maternal Aunt Diabetes Maternal Uncle Diabetes Mother Cervical Cancer Sister Diabetes Sister Heart Disease Sister [place] at age 42 = d eath Relation Status Comments Brother Father Maternal Aunt Maternal Uncle Mother Sister Social History Tobacco Use Types Packs/Day Years [...] Sexual Orientation Straight 02/22/2021 15 :01 EDT Obstetrics History Para Term AB IAB SAB Ectopic Multiple Livin g Live Births 4 4 4 Date Outcome GA Total Labor Labor/2nd/3rd Weight Sex Type Anes PTL Deja A1 A5 Name Clin Para Para Para Para Last Filed Vital Signs Vital Sign Reading [...] Body Mass Index 27.98 01/18/2024 0748 EDT Plan of Treatment Upcoming Encounters Date Type Department Care Team (Late st Contact Info) Description 05/22/2024 10:00 EDT Office Visit [facility] Foot & Ankle Program - [facility] [address] [facility] [place] [address] Edwige Keller DPM [address] [place] [address] 07/18/2024 13:00 EDT Procedure visit [facility] Women's Services - [facility] [address] [place], [place] [phone] Jessica Murray NP [address] [facility], [facility], [address] [place] [address] Health Maintenance Due Date Last Done Comments Foot Exam 1963 Hemoglobin A1C (Ha1C) 1963 Microalbumin/Creatinine Ratio 1963 Lipid Profile Screening (Cholesterol) 1966 Eye Exam 09/17/2019 09/17/2018 COVID-19 Vaccine (2022-24 season) 2023 RSV Immunization ( o r 60+ Years) (1 - 1-dose 60+ series) 2023 Hepatitis C Screen Completed 05/22/2018 Procedures Procedure Name Priority Date/Time Associated Diagnosis [...] PCR HCSCR2 Negative Negative 05/23/2018 21:57 EDT [facility] Comment: The results of this assay can be falsely lowered due to the consumption of Biotin. Blood specimen (specimen) BLOOD SPECIMEN / Unknown 05/22/2018 12:02 EDT 05/22/2018 12:36 EDT Kassie [facility] CHEMISTR[facility] BL OOD GAS ORDERABLES [facility] [address] [place] [address] from Last 3 Months or Most Recently Relevant to Health Maintenance Advance Directives For more information, please contact: [phone] Documents on File Type Date Recorded Patient Coat Examiner Expl anation Advance Directive 01/18/2024 6:46 Power of Software Engineer Web Services * Full Code (Latest Code Status on File) Date Activated Date Inactivated Comments 01/18/2024 7:25 01/18/2024 13:30 Question Answer Comments When the patient has NO PULSE: Full Code / CPR Who Made the Decision? Patient Care Teams String Top Sealer Relationship Specialty Start Date End Date Katia Haywood [address] [phone] PCP - General Family Medicine - Primary Care 06/20/23
--- OUTSIDE RECORDS SUMMARY | 2024-05-15 11:00 | XMS_ITS | Encounter Summary ---
Author Organization [facility] Address [address] [place] [address] Care Team Providers Care Marketing Sales Consultant Name Role Phone Katia Haywood Primary Care Provider [phone] Encounter Details Date Type Department Care Team (Late st Contact Info) Description 12/28/[address] [facility] Pelvic Medicine and Reconstructive Surgery - Medical Office Building [facility] [address] [place] [phone] Solange Garcia PA-C [address] [facility] Medical [facility], [address] [phone] Social History Tobacco Use Types Packs/Day Years [...] Info) Description 05/22/2024 10:[address] [facility] Foot & Ankle Program - [facility] [address] [facility] [address] Edwige Keller [facility] [address] [place] [address] 07/18/2024 13:[address] [facility] Women's Services - [address] [address] Jessica Murray NP [address] [facility], [address] [place] [phone] documented as of this encounter Visit Diagnoses Not on filedocumented in this encounter Care Teams Marketing Sales Consultant Relationship Specialty Start Date End Date Katia Haywood [address] [place] [phone] PCP - General Family Medicine - Primary Care 06/20/23 documented as of this encounter
--- OUTSIDE RECORDS SUMMARY | 2024-05-15 11:00 | XMS_ITS | Encounter Summary ---
Author Organization [facility] Address [address] [place] [address] Care Team Providers Care Software Applications Specialist Name Role Phone Katia Haywood Primary Care Provider [phone] Reason for Referral * Specialty Diagnoses / Procedures Referred By Patricio monsivais Referred To Contact Thais Joseph [address] [place] [address] Referral ID Status Reason Start Date Expiration Date Visits Re quested Visits Authorized * Specialty Diagnoses / Procedures Referred By Patricio monsivais Referred To Contact Thais Joseph [address] [place] [address] Referral ID Status Reason Start Date Expiration Date Visits Re quested Visits Authorized Comments Call 911 anytime you think you may need emergency care. For example, call if: - You passed out (lost consciousness). - You have severe trouble breathing. - You have sudden chest pain and shortness of breath, or you cough up blood. Call your doctor now or seek immediate medical care if: - You have bright red vaginal bleeding that soaks one or more pads in an hour for two consecutive hours, or you have large clots. - You have foul-smelling discharge from your vagina. - You are sick to your stomach or cannot keep fluids down. - You have pain that does not get better after you take pain medicine. - You have loose stitches, or your incision comes open. - You have signs of infection, such as: - Increased pain, swelling, warmth, or redness. - Red streaks leading from the incision. - Pus draining from the incision. - A fever greater than 100.4 degrees F (38 degrees C). - You have signs of a blood clot, such as: - Pain in your calf, back of the knee, thigh, or groin. - Redness and swelling in your leg or groin. - You have trouble passing urine or stool, especially if you have pain or swelling in your lower belly. Watch closely for changes in your health, and be sure to contact your doctor if: - You do not have a bowel movement after taking a laxative. - You have hot flashes, sweating, flushing, or a fast heartbeat, but no fever. Reason for Visit * Auth/Cert (Routine) Specialty Diagnoses / Procedures Referred By Patricio monsivais Referred To Contact Diagnoses Cystocele, unspecified Rectocele Procedures KS ANTERIOR COLPORRAPHY RPR CYSTOCELE W/CYSTO [place] POST COLPORRHAPHY RECTOCELE W/WO PERINEORRHAPHY anterior colporrhaphy, cystoscopy posterior colporrhaphy Referral ID Status Reason Start Date Expiration Date Visits Re quested Visits Authorized [id number] 1 1 Encounter Details Date Type Department Care Team (Latest Contact Info) Description 01/18/2024 6:39 EDT - 01/18/2024 11:28 EDT Hospital Encounter [facility] [place] [address] [place] [address] Chelsi Rivera MD 9 [facility], [address] [place] [address] Discharge Disposition: Home or Self Care Social History Tobacco Use Types Packs/Day Years [...] Blood Pressure 144/73 01/18/2024 1100 EDT Pulse - - Temperature 36.5 ??C (97.7 ??F) 01/18/2024 1100 [...] Means Destination Comment s Home or Self Custodial documented in this encounter Progress Notes * [...] Joseph MD 01/18/2024 8:21 Source Note - ACCOUNT SERVICES REPRESENTATIVE, MATTHEW 2 - 01/01/2024 16:24 EDT documented in this encounter OR Notes * OR Surgeon - Chula Whitley MD - 01/18/2024 1017 EDT anterior colporrhaphy, cystoscopy Operative Note Date: 01/18/2024 Location: [facility] OR Name: Martha Benoit, : 1965, Diagnosis [...] Vagina (Active) [REMOVED] Non-Surgical Airway (Removed) Staff: Theatre Director: Devora Pacheco RN Scrub Person: Karyn Sanon MA Patient Manager Call: Lauren Marquez Indications: Martha Benoit is an [...] retained. Chelsi Rivera MD / AM Confirmation: [id number] Dictation ID: [id number] cc: documented in this encounter Miscellaneous Notes * Brief Op Note - Thais Joseph - 01/18/2024 1128 EDT Date: 01/18/2024 Location: [facility] OR Name: Martha Benoit, : 1965, Diagnosis [...] Vagina (Active) [REMOVED] Non-Surgical Airway (Removed) Staff: Theatre Director: Devora Pacheco RN Scrub Person: Karyn Sanon MA Patient Manager Call: Lauren Marquez Indications: Martha Benoit is an [...] 01/18/24 12:31 Obstetrics & Gynecology, PGY-2 Pager [phone] documented in this encounter Plan of Treatment Upcoming Encounters Date Type Department Care Team (Late st Contact Info) Description 05/22/2024 10:00 EDT Office Visit [facility] Foot & Ankle Program - [address] [address] Edwige Keller DPM [address] [place] [address] 07/18/2024 13:00 EDT Procedure visit [facility] Women's Services - [facility] [address] [place] [address] Jessica Murray NP 111 [facility], [address] [place] [address] Scheduled Referrals Name Type Priority Associated Diagnoses [...] 70 - 100 mg/dL 01/18/2024 10:17 EDT [facility] HN LAB POC COMMENT (GLUCOSE) Test Performed by Nursing Services 01/18/2024 10:17 EDT [facility] Blood CAPILLARY BLOOD / Unknown 01/18/2024 10:16 EDT 01/18/2024 10:17 EDT Thais Navarro CRNA POINT OF CARE TEST O RDERABLES Performing Organization Address City/[facility]/ZIP Co de Phone Number [facility] [address] [place] [address] * (ABNORMAL) POCT GLUCOSE, INTERFACED (01/18/2024 8:25 EDT) Glucose, POC 126(H) 70 - 100 mg/dL 01/18/2024 8:26 EDT [facility] HN LAB POC COMMENT (GLUCOSE) Test Performed by Nursing Services 01/18/2024 8:26 EDT [facility] Blood CAPILLARY BLOOD / Unknown 01/18/2024 8:25 EDT 01/18/2024 8:26 EDT Chelsi Rivera MD POINT OF CARE TE ST ORDERABLES Performing Organization Address [facility] Co de Phone Number [facility] [address] [place], [place] [phone] documented in this encounter Visit Diagnoses Not on filedocumented in this encounter Administered Medications Inactive Administered Medications - up to 3 most recent administrations Medication Order MAR Action Action Date Dose Rate Site acetaminophen (TYLENOL) tablet 1,000 mg 1,000 mg, oral, PRN, 1 dose, Starting on Ava 01/18/24 at 1400, Until Ava 01/18/24 at 1330, Fever, Routine, Recovery (only) acetaminophen [...] (only) Given 01/18/2024 10:28 EDT 5 mg documented in this encounter Discontinued Medications Medication [...] Recovery (only) 1015 (Canceled Entry - Provider: Batch Job User Admin - Comment: Automatically canceled [...] Starting on Ava 01/18/24 at 1400, Until Ava 01/18/24 at 1330, Fever, Routine, Recovery (only) [...] (PF) (ZOFRAN) injection 4 mg 1 01/18/2024 sodium chloride (NS) 0.9 % 3 0 mL with vasopressin (VASOSTRICT) 10 Units 1 01/18/2024 sodium chloride 0.9 % irrigation 1 01/18/20 Diet Count Last Ordered Date First Orde red Date DISCHARGE DIET 1 01/18/2024 Nursing Count Last Ordered Date First Orde red Date ACTIVITY INSTRUCTIONS 1 01/18/2024 Discharge Count Last Ordered Date First Orde red Date DISCHARGE PATIENT 1 01/18/2024 documented in this encounter Care Teams Software Applications Specialist Relationship Specialty Start Date End Date Katia Haywood [address] [place] [address] PCP - General Family Medicine - Primary Care 06/20/23 documented as of this encounter
--- OUTSIDE RECORDS SUMMARY | 2024-05-15 11:00 | XMS_ITS | Encounter Summary ---
Author Organization [facility] Address [address] [place] [address] Care Team Providers Care Electrical Installation Inspector Name Role Phone Katia Haywood Primary Care Provider [phone] Encounter Details Date Type Department Care Team (Latest Contact Info) Description 01/08/2024 9:10 EDT - 01/08/2024 23:59 EDT Hospital Encounter [facility] Pre-Surgical Testing [address] [place], [place] [address] Discharge Disposition: Home or Self Care Social [...] Sign Reading Time Taken Comments Blood Pressure - - Pulse - - Temperature - - Respiratory Rate - - Oxygen Saturation - - Inhaled Oxygen Concentration - - Weight 68 kg (150 lb) 01/08/2024 0852 EDT Height 157.5 cm (5' 2) 01/08/2024 0852 EDT Body Mass Index 27.44 01/08/2024 0852 EDT documented in this encounter Functional Status [...] No 03/11/2016 documented as of this encounter Medications at Time of Discharge [...] a week. 42 g 11 03/15/2023 04/05/2024 Miscellaneous Medication - See Admin Instructions Boric acid capsules [address] one capsule vaginally HS x 14 days. Call patient when ready. 14 Each 01/20/2020 01/18/2024 polyethylene glycol 3350 (MIRALAX) 17 gram packet Take 17 g by mouth daily for 14 days. 14 Packet 01/18/2024 02/01/2024 documented as of this encounter Discharge Disposition Disposition Code Departure Means Destination Home or Self Care documented in this encounter OR Notes * Preprocedure Instructions - Yancy Queen RN - 01/08/2024 0910 EDT Martha Benoit has been instructed as follows regarding medication administration for the day of thescheduled procedure. Date of Surgery: 01/18/24 Instructions for Taking Medications Day of Surgery Medication Dose and frequency Last Dose Hold Day of Surgery Take Day of Surgery baclofen (LIORESAL) 10 mg tablet Take 1 Tablet by mouth 4 times daily. y canagliflozin (INVOKANA) 300 mg tablet Take 1 Tablet by mouth daily. 01/14/24 ciclopirox (PENLAC) 8 % solution Apply to affected nails daily as instructed Patient taking differently: as needed. Apply to affected nails daily as instructed y cyclobenzaprine (FLEXERIL) 10 mg tablet Take 1 Tablet by mouth at bedtime. y ergocalciferol (DRISDOL; VITAMIN D2) 1,250 mcg (50,000 unit) capsule Take 1 Capsule by mouth once aweek. 01/08/24 estradioL (ESTRACE) 0.01 % (0.1 mg/gram) vaginal cream Place 0.5 g vaginally three times a week. y furosemide (LASIX) 40 mg tablet Take 40 mg by mouth daily. Reported on 03/13/2017 Patient not taking: Reported on 03/15/2023 y gabapentin (NEURONTIN) 300 mg capsule Take 1 Capsule by mouth 2 times daily. y glipiZIDE (GLUCOTROL) 10 mg tablet Take 1 Tablet by mouth 2 times daily. y insulin lispro (HUMALOG) 100 unit/mL injection Inject into the skin 3 times daily. Sliding scale y lidocaine 5 % (LIDODERM) 5 % patch Place 1 Patch onto the skin daily. y metformin (GLUCOPHAGE) 500 mg tablet Take 1 Tablet by mouth 3 times daily before meals. y Miscellaneous Medication - See Admin Instructions Boric acid capsules [address] one capsule vaginally HS x 14 days. Call patient when ready. y nystatin (MYCOSTATIN) powder 3 times daily as needed. y omeprazole (PRILOSEC) 20 mg capsule Take 1 Capsule by mouth daily. y oxyCODONE-acetaminophen (PERCOCET) 10-325 mg per tablet Take 1 Tablet by mouth every 4 hours as needed for Pain. Takes 5 tabs daily y pediatric multivitamin no.76 tablet,chewable Take 1 Tab by mouth. 01/08/24 secukinumab (COSENTYX, 2 SYRINGES,) 150 mg/mL syringe Inject 2 mL into the skin every 4 weeks. Every 28 days y triamcinolone (KENALOG) 0.1 % ointment APPLY TOPICALLY TO ARMS LEGS AND ABDOMEN TWO TIMES A DAY NEEDED y documented in this encounter Plan of Treatment Upcoming Encounters Date Type Department Care Team (Late st Contact Info) Description 05/22/2024 10:00 EDT Office Visit [facility] Foot & Ankle Program - [address] [place] [address] Edwige Keller DPM [address] [place] [phone] 07/18/2024 13:00 EDT Procedure visit [facility] Women's Services - [facility] [address] [place], [place] [address] Jessica Murray NP 111 [facility], [facility], [address] [place] [phone] documented as of this encounter Visit Diagnoses Not on filedocumented in this encounter Discontinued Medications Medication Sig Discontinue Reason Start Date End Da te adalimumab (HUMIRA,CF, SUBQ)Indications:takes every other week not sure of dose Inject into the skin. Error 01/08/2024 fluconazole (DIFLUCAN) 150 mg tablet Take 1 Tab by mouth every 72 hours. Error 08/12/2020 01/08/2024 folic acid (FOLVITE) 1 mg tablet Take 1 mg by mouth daily. Reported on 03/13/2017 Error 01/08/2024 nitroglycerin 0.4 % (w/w) ointment Apply 1 application topically as needed. Error 03/05/2019 01/08/2024 Miscellaneous Medication - See Admin Instructions Boric acid caps 600 mg each. Sig: insert vaginally HS twice weekly Error 08/12/2020 01/08/2024 documented as of this encounter Historical Medications * This list may reflect changes made after this encounter. Medication Sig Dispensed Refills Start Date End Date levothyroxine (SYNTHROID) 25 mcg tablet Take 1 Tablet by mouth daily. secukinumab (COSENTYX, 2 SYRINGES,) 150 mg/mL syringe Inject 2 mL into the skin every 4 weeks. Every 28 days added in this encounter Care Teams Electrical Installation Inspector Relationship Specialty Start Date End Date Katia Haywood [address] [place] [phone] PCP - General Family Medicine - Primary Care 06/20/23 documented as of this encounter
--- OUTSIDE RECORDS SUMMARY | 2024-05-15 11:00 | XMS_ITS | Encounter Summary ---
Author Organization [facility] Address [address] [place] [address] Care Team Providers Care Mud Mixer Helper Name Role Phone Katia Haywood Primary Care Provider [phone] Reason for Visit * Reason Onset Date Comments Pre-procedure 01/08/2024 Encounter Details Date Type Department Care Team (Late st Contact Info) Description 01/08/2024 Telephone [facility] Pelvic Medicine and Reconstructive Surgery - Medical Office [facility] [address] [place] [address] Sofía Fernandez, RN [address] [place] [address] Pre-procedure Social History Tobacco Use Types Packs/Day Years [...] Miscellaneous Notes * Telephone Encounter - Sofía Fernandez, RN - 01/08/2024 0910 EDT Nurse from Anesthesia calling to report pt refused to have a her PAT call this morning. Nurse was unable to review meds as pt would not engage or provide pt identifiers. Per anesthesia nurse, we can try to reschedule pt for another PAT call or they can add her to the add-on list. There is no guarantee they will be able to complete this call due to limited open appointments. Will send above to ALBERT Mccormick and ask her to reach out to pt. documented in this encounter Plan of Treatment Upcoming Encounters Date Type Department Care Team (Late st Contact Info) Description 05/22/2024 10:00 EDT Office Visit [facility] Foot & Ankle Program - [address] [address] Edwige Keller DPM [address] [place] [phone] 07/18/2024 13:00 EDT Procedure visit [facility] Women's Services - [facility] [address] [place], [place] [phone] Jessica Murray NP 111 [facility], [facility], [address] [place] [address] documented as of this encounter Visit Diagnoses Not on filedocumented in this encounter Care Teams Mud Mixer Helper Relationship Specialty Start Date End Date Katia Haywood [address] [place] [phone] PCP - General Family Medicine - Primary Care 06/20/23 documented as of this encounter
--- OUTSIDE RECORDS SUMMARY | 2024-05-15 11:00 | XMS_ITS | Encounter Summary ---
Author Organization [facility] Address [address] [place] [address] Care Team Providers Care Still Runner Name Role Phone Katia Haywood Primary Care Provider [phone] Reason for Referral * Referral (Routine/Next Available) - Specialty Report Received Specialty Diagnoses / Procedures Referred By Patricio monsivais Referred To Contact Diagnoses Personal history of colonic polyps Narrowing of stools Procedures COLONOSCOPY Chula Whitley MD 111 [facility] [address] [place] [address] [address] Referral ID Status Reason Start Date Expiration Date V isits Requested Visits Authorized [id number] Specialty Report Received 08/16/2023 1 1 Reason for Visit * Reason Onset Date Comments Referral Request 08/16/2023 Encounter Details Date Type Department Care Team (Late st Contact Info) Description 08/16/2023 Telephone [facility] Pelvic Medicine and Reconstructive Surgery - Medical Office [facility] [address] [place] [address] Allie Eng RN Referral Request Social History Tobacco Use Types Packs/Day Years [...] Telephone Encounter - Allie Eng RN - 08/16/2023 1308 EDT Images from the original note were not included. Chula Whitley MD You 1 hour ago (11:43) That would be so helpful! ??Correct--poor prep (not adequate for polyp surveillance on last), personal history of polyp, colonoscopy and narrow caliber stool. I am fine with any endoscopist doing it. Thank you so very very much! Chula Zayas MD 1 hour ago (11:32) Alex Quiros, pt requesting referral to [facility] for colonoscopy, with indication. Sounds like previous colo was incomplete d/t poor prep, per pt. Let us know if you'd like us to place this. Thanks! Faxed via eEvent to [phone], per . All referral questions answered via chart review/TC to pt. Pt made aware we have placed this referral today. * Telephone Encounter - Allie Eng RN - 08/16/2023 9313 EDT VM from pt requesting colonoscopy referral from Dr. Whitley sent to [facility]. Their phone is [phone] and their fax is [phone]. They will need to know why thecolonoscopy is indicated. Pt states the last colo she did was not great because her prep was not complete. Routed to Dr. Whitley. documented in this encounter Plan of Treatment Upcoming Encounters Date Type Department Care Team (Late st Contact Info) Description 05/22/2024 10:00 EDT Office Visit [facility] Foot & Ankle Program - [address] [place], [place] [phone] Edwige Keller DPM [address] [place] [address] 07/18/2024 13:00 EDT Procedure visit [facility] Women's Services - [address] [phone] Jessica Murray NP [address] [place] [address], [address] [place] [address] Scheduled Orders Name Type Priority Associated Diagnoses Orde r Schedule COLONOSCOPY GI Routine Personal history of colonic polyps Narrowing of stools Expected: 08/16/2023 (Approximate), Expires: 02/14/2025 documented as of this encounter Visit Diagnoses Diagnosis Personal history of colonic polyps- Primary Narrowing of stools Abnormal feces documented in this encounter Care Teams Still Runner Relationship Specialty Start Date End Date Katia Haywood [address] [place] [phone] PCP - General Family Medicine - Primary Care 06/20/23 documented as of this encounter
--- OUTSIDE RECORDS SUMMARY | 2024-05-15 11:01 | XMS_ITS | Encounter Summary ---
Author Organization [facility] Address [address] [place] [address] Care Team Providers Care Cheese Cook Name Role Phone MunozRuth jerome Lilibeth JUAREZ Primary Care Provider + Encounter Details Date Type Department Care Team (Latest Contact Info) Description 07/22/2020 Travel Social History Tobacco Use Types Packs/Day Years [...] Sexual Orientation Straight 02/22/2021 15 :01 EDT COVID-19 Exposure Response Date Recorded In the last month, have you been in contact with someone who was confirmed or suspected to have Coronavirus / COVID-19? No / Unsure 07/22/2020 9:37 EDT documented as of this encounter Functional [...] Info) Description 05/22/2024 10:00 EDT Office Visit [facility] Foot & Ankle Program - [address] [place] [address] Edwige Keller DPM [address] [place] [phone] 07/18/2024 13:00 EDT Procedure visit [facility] Women's Services - [facility] [address] [place] [address] Jessica Murray NP 111 [facility], [facility], [address] [place] [address] documented as of this encounter Visit Diagnoses Not on filedocumented in this encounter Care Teams Cheese Cook Relationship Specialty Start Date End Date Ruth Munoz, CREATIVE ENGAGEMENT DIRECTOR [address] [place] [phone] PCP - General 04/26/19 06/19/23 documented as of this encounter
--- OUTSIDE RECORDS SUMMARY | 2024-05-15 11:01 | XMS_ITS | Encounter Summary ---
Author Organization [facility] Address [address] [place] [address] Care Team Providers Care Cuff Matcher Name Role Phone Ruth Munoz APRN Primary Care Provider + Katia Haywood Primary Care Provider [phone] Encounter Details Date Type Department Care Team (Late st Contact Info) Description 09/24/2020 Lab Requisition [facility] Pathology & Laboratory Medicine - [facility] [address] [place], [place] [phone] Outr Resulting Lab, Provider Social History Tobacco Use Types Packs/Day Years [...] Info) Description 05/22/2024 10:00 EDT Office Visit [facility] Foot & Ankle Program - [address] [place] [address] Edwige Keller DPLilibeth [address] [place] [address] 07/18/2024 13:00 EDT Procedure visit [facility] Women's Services - [facility] [address] [place], [place] [phone] Jessica Murray NP [address] [place], [address] [place] [address] documented as of this encounter Procedures Procedure Name Priority Date/Time Associated Diagnosis Comments VITAMIN B12 Routine 09/24/2020 17:04 EST documented in this encounter Results * (ABNORMAL) VITAMIN B12 (09/24/2020 17:04 EST) Vitamin B12 1,832(H) 211 - 911 pg/mL 09/24/2020 22:32 EST [facility] Blood VENOUS BLOOD / Unknown 09/24/2020 17:04 EST 09/24/2020 21:38 EST Provider Outr Resulting Lab CHEMISTRY & BLOOD GAS ORDERABLES [facility] [address] [place] [address] documented in this encounter Visit Diagnoses Not on filedocumented in this encounter Care Teams Cuff Matcher Relationship Specialty Start Date End Date Ruth Munoz APRN [address] [place] [phone] PCP - General 04/26/19 06/19/23 Katia Haywood [address] [place] [phone] PCP - General Family Medicine - Primary Care 06/20/23 documented as of this encounter
--- OUTSIDE RECORDS SUMMARY | 2024-05-15 11:01 | XMS_ITS | Encounter Summary ---
Author Organization [facility] Address [address] [place] [id number] Care Team Providers Care Pulling Unit Operator Name Role Phone Ruth Munoz APRN Primary Care Provider + Reason for Visit * Reason Comments Follow-up prolapse * Consult (See Order Priority) - Order Cancelled Specialty Diagnoses / Procedures Referred By Patricio monsivais Referred To Contact Pelvic Medicine Diagnoses Rectocele Cystocele, midline Lola Vargas MD 2 [facility], [address] [place] [phone] [facility] Pelvic Medicine [facility] [address] [place] [id number] Referral ID Status Reason Start Date Expiration Date Visits Requested Visits Authorized [id number] Order Cancelled Specialty Services Required 07/14/2021 1 1 Encounter Details Date Type Department Care Team (Latest Contact Info) Description 09/15/2021 10:00 EST Office Visit [facility] Pelvic Medicine and Reconstructive Surgery - Medical Office Building [facility] [address] [place] [phone] Chelsi Rivera MD 2 [facility], [address] [place] [phone] Weak urinary stream (Primary Dx) Social History Tobacco Use Types [...] - Inhaled Oxygen Concentration - - Weight 83.9 kg (185 lb) 09/15/2021 1004 EST Height 160 cm (5' 3) 09/15/2021 1004 EST Body Mass Index 32.77 09/15/2021 1004 EST documented in this encounter Functional Status [...] Progress Notes * Chelsi Rivera MD - 09/15/2021 1000 EST [facility] FOLLOW-UP Patient: Martha Benoit is an 55 y.o. female seen for a follow-up regarding Follow-up (prolapse).Pt had Video urodynamics with Dr. Kaplan 04/12 following Televideo consult with me 03/12. Discussed timed voiding. Pt here for exam, feels vaginal prolapse getting worse. Current Outpatient Medications Medication ??? adalimumab (HUMIRA,CF, SUBQ) ??? baclofen (LIORESAL) 10 mg tablet ??? canagliflozin (INVOKANA) 300 mg tablet ??? ciclopirox (PENLAC) 8 % solution ??? cyclobenzaprine (FLEXERIL) 10 mg tablet ??? ergocalciferol (VITAMIN D) 50,000 unit capsule ??? fluconazole (DIFLUCAN) 150 mg tablet ??? folic acid (FOLVITE) 1 mg tablet ??? furosemide (LASIX) 40 mg tablet ??? gabapentin (NEURONTIN) 300 mg capsule ??? glipiZIDE (GLUCOTROL) 10 mg tablet ??? insulin lispro (HUMALOG) 100 unit/mL injection ??? lidocaine 5 % (LIDODERM) 5 % patch ??? metformin (GLUCOPHAGE) 500 mg tablet ??? Miscellaneous Medication - See Admin Instructions ??? Miscellaneous Medication - See Admin Instructions ??? nitroglycerin (RECTIV) 0.4 % (w/w) ointment ??? nystatin (MYCOSTATIN) powder ??? omeprazole (PRILOSEC) 20 mg capsule ??? oxyCODONE-acetaminophen (PERCOCET) 10-325 mg per tablet ??? pediatric multivitamin no.76 tablet,chewable ??? triamcinolone (KENALOG) 0.1 % ointment No current facility-administered medications for this visit. No Known Allergies Social History Socioeconomic History ??? Marital status: Spouse name: None ??? Number of children: None ??? Years of education: None ??? Highest education level: None Occupational History ??? None Tobacco Use ??? Smoking status: Never Smoker ??? Smokeless tobacco: Never Used Substance and Sexual Activity ??? Alcohol use: No ??? Drug use: None ??? Sexual activity: Not Currently Other Topics Concern ??? None Social History Narrative ??? None Social Determinants of Health Financial Resource Strain: ??? Difficulty of Paying Living Expenses: Not on file Food Insecurity: ??? Worried About Running Out of Food in the Last Year: Not on file ??? Ran Out of Food in the Last Year: Not on file Transportation Needs: ??? Lack of Transportation (Medical): Not on file ??? Lack of Transportation (Non-Medical): Not on file Physical Activity: ??? Days of Exercise per Week: Not on file ??? Minutes of Exercise per Session: Not on file Stress: ??? Feeling of Stress : Not on file Social Connections: ??? Frequency of Communication with Friends and Family: Not on file ??? Frequency of Social Gatherings with Friends and Family: Not on file ??? Attends Buddhism Services: Not on file ??? Active Member of Clubs or Organizations: Not on file ??? Attends Club or Organization Meetings: Not on file ??? Marital Status: Not on file Review of Systems Pelvic pain: No Dyspareunia: No Recurrent UTI: No Hematuria: No Objective Ht 160 cm (63) Wt 83.9 kg (185 lb) BMI 32.77 kg/m?? Physical Exam Pelvic: Ext: no exophytic lesion; Vagina: stage 2 cysto/rectocele Assessment and Plan Martha Benoti is a 55 y.o., female with milod pelvic prolapse. Discussed timed voiding. Pt unable to return for PFPT due to expense. Written information given. Pt fearful she will not be able to empty bladder as neurologic disease progresses, discussed learning self cath. F/U prn Chelsi Rivera MD documented in this encounter Plan of Treatment Upcoming Encounters Date Type Department Care Team (Late st Contact Info) Description 05/22/2024 10:00 EDT Office Visit [facility] Foot & Ankle Program - [address] [place] [address] Edwige Kellre DPM [address] [place] [address] 07/18/2024 13:00 EDT Procedure visit [facility] Women's Services - [address] [phone] Jessica Murray NP 111 [facility], [address] [place] [address] documented as of this encounter Visit Diagnoses Diagnosis Weak urinary stream- Primary Slowing of urinary stream documented in this encounter Care Teams Pulling Unit Operator Relationship Specialty Start Date End Date Ruth Munoz APRN [address] [place] [phone] PCP - General 04/26/19 06/19/23 documented as of this encounter
--- OUTSIDE RECORDS SUMMARY | 2024-05-15 11:01 | XMS_ITS | Encounter Summary ---
Author Organization [facility] Address [address] [place] [address] Care Team Providers Care Non Categorical Preschool Teacher Name Role Phone MunozRuth jerome Lilibeth JUAREZ Primary Care Provider + Reason for Visit * Reason Onset Date Comments Other 08/16/2021 Encounter Details Date Type Department Care Team (Late st Contact Info) Description 08/16/2021 Telephone [facility] ENT [address] [place], [place] [phone] Pierre Zacarias MD [address] [place] [address] Other Social History Tobacco Use Types Packs/Day [...] encounter Miscellaneous Notes * Telephone Encounter - Helen Coreas RN - 08/16/2021 1306 EDT 90 days was prescribed - called to let patient mk * Telephone Encounter - John Paul Jenkins - 08/16/2021 1248 EDT Pt called and said she picked up her prescription but it was only for 30 days not 90 days. She would like it sent in 90 days due to her co pay, either way if its 30 or 90 days she pays the same amount. The pts insurance wont pay for another script until next month but she would like to speak to someone to find out if she will be getting in the 90 day. Please call pt with a update when available. documented in this encounter Plan of Treatment Upcoming Encounters Date Type Department Care Team (Late st Contact Info) Description 05/22/2024 10:00 EDT Office Visit [facility] Foot & Ankle Program - [address] [place], [place] [phone] Edwige Keller [address] [phone] 07/18/2024 13:00 EDT Procedure visit [facility] Women's Services - [facility] [address] [place], [place] [phone] Jessica Murray NP 111 [facility], [facility], [address] [place] [address] documented as of this encounter Visit Diagnoses Not on filedocumented in this encounter Care Teams Non Categorical Preschool Teacher Relationship Specialty Start Date End Date Ruth Munoz APRN [address] [place] [address] PCP - General 04/26/19 06/19/23 documented as of this encounter
--- OUTSIDE RECORDS SUMMARY | 2024-05-15 11:01 | XMS_ITS | Encounter Summary ---
Author Organization [facility] Address [address] [place] [address] Care Team Providers Care Biotech Production Specialist Name Role Phone MunozRuth jerome Lilibeth JUAREZ Primary Care Provider + Reason for Visit * Reason Onset Date Comments Medications Refill 08/16/2021 Encounter Details Date Type Department Care Team (Late st Contact Info) Description 08/16/2021 Refill [facility] ENT [address] [place], [place] [phone] Pierre Zacarias MD [address] [place] [address] Medications Refill Social History Tobacco Use Types [...] Dispensed Refills Start Date End Da te cyclobenzaprine (FLEXERIL) 10 mg tablet Take 1 Tablet by mouth at bedtime. 90 Tablet 08/16/2021 documented in this encounter Miscellaneous Notes * Telephone Encounter - CarverMel - 08/16/2021 0915 EDT Patient called and requested a refill of her Cyclobenaprine 10 mg she is [facility]. She can be reached at [phone] documented in this encounter Plan of Treatment Upcoming Encounters Date Type Department Care Team (Late st Contact Info) Description 05/22/2024 10:00 EDT Office Visit [facility] Foot & Ankle Program - [address] [place] [address] Edwige Keller [address] [address] 07/18/2024 13:00 EDT Procedure visit [facility] Women's Services - [address] [phone] Jessica Murray NP 111 [facility], [address] [place] [address] documented as of this encounter Visit Diagnoses Not on filedocumented in this encounter Discontinued Medications Medication Sig Discontinue Reason Start Date End Da te cyclobenzaprine (FLEXERIL) 10 mg tablet Take 1 Tablet by mouth at bedtime. Reorder 05/04/2021 08/16/2021 documented as of this encounter Care Teams Biotech Production Specialist Relationship Specialty Start Date End Date Ruth Munoz APRN [address] [place] [phone] PCP - General 04/26/19 06/19/23 documented as of this encounter
--- OUTSIDE RECORDS SUMMARY | 2024-05-15 11:01 | XMS_ITS | Encounter Summary ---
Author Organization [facility] Address [address] [place] [address] Care Team Providers Care Rehabilitation Services Coordinator Name Role Phone Katia Haywood Primary Care Provider [phone] Reason for Visit * Reason Onset Date Comments Appointment Related 07/05/2023 Encounter Details Date Type Department Care Team (Late st Contact Info) Description 07/05/2023 Telephone [facility] Total Joint Program - [address] [phone] Telma Brady NP [address] [place] [address] Appointment Related Social History Tobacco Use Types Packs/Day Years [...] encounter Miscellaneous Notes * Telephone Encounter - Christa Cancino MA - 07/05/2023 0933 EDT Returned pt's call to schedule cortisone injection appt in August. Pt was scheduled; date/time confirmed. Pt stated she would like to discuss gel injections at this appt. Pt is planning to continueexercises/PT in the meantime. documented in this encounter Plan of Treatment Upcoming Encounters Date Type Department Care Team (Late st Contact Info) Description 05/22/2024 10:00 EDT Office Visit [facility] Foot & Ankle Program - [address] [place] [address] Edwige Keller [address] [address] 07/18/2024 13:00 EDT Procedure visit [facility] Women's Services - [facility] [address] [place], [place] [phone] Jessica Murray NP 111 [facility], [address] [place] [address] documented as of this encounter Visit Diagnoses Not on filedocumented in this encounter Care Teams Rehabilitation Services Coordinator Relationship Specialty Start Date End Date Katia Haywood [address] [place] [phone] PCP - General Family Medicine - Primary Care 06/20/23 documented as of this encounter
--- OUTSIDE RECORDS SUMMARY | 2024-05-15 11:01 | XMS_ITS | Encounter Summary ---
Author Organization [facility] Address [address] [place] [address] Care Team Providers Care Evp Name Role Phone Alexander Ruth Mcelroy APRN Primary Care Provider + Reason for Visit * Reason Comments Foot Problem Encounter Details Date Type Department Care Team (Latest Contact Info) Description 06/14/2023 14:00 EDT Office Visit [facility] Foot & Ankle Program - [address] [address] Edwige Keller, DP [address] [place] [address] Hyperkeratosis (Primary Dx); Type 2 diabetes mellitus with diabetic polyneuropathy, with long-term current use of insulin ([facility]) Social History Tobacco Use Types Packs/Day Years [...] as of this encounter Progress Notes * Edwige Keller, DPM - 06/14/2023 1400 EDT Martha Benoit is a very pleasant 57 y.o. female patient who presents for follow up. She has not noticed any recurrence of the wound on her left heel. She is wondering if there is a little callus buildup. Again. Has not been causing her any pain. She also recently had a little discomfort in her right heel and would like this evaluated today to make sure she is not developing a callus or concerningareas here. Overall she has been doing well. Patient Active Problem List Diagnosis Date Noted ??? Diabetes mellitus ([facility]) 08/11/2014 ??? Vitamin D deficiency 01/28/2010 ??? Morbid obesity ([facility]) 01/22/2010 ??? Mild dysplasia of cervix ([facility]) 06/26/2009 Past Medical History: Diagnosis Date ??? Unspecified cerebral artery occlusion with cerebral infarction Past Surgical History: Procedure Laterality Date ??? CERVIX LESION DESTRUCTION 07/15/2009 ??? GASTRIC BYPASS SURGERY 01/04/16 ??? LEEP 07/15/2009 ??? TUBAL LIGATION Social History Tobacco Use ??? Smoking status: Never ??? Smokeless tobacco: Never Substance Use Topics ??? Alcohol use: No Family History Problem Relation Age of Onset ??? Colon Cancer Father ??? Diabetes Father ??? Stroke Father ??? Cervical Cancer Sister ??? Diabetes Sister ??? Heart Disease Sister [place] at age 42 = ??? Diabetes Mother ??? Diabetes Brother ??? Diabetes Maternal Aunt ??? Diabetes Maternal Uncle Current Outpatient Medications Medication Sig Dispense Refill ??? adalimumab (HUMIRA,CF, SUBQ) Inject into the skin. ??? baclofen (LIORESAL) 10 mg tablet Take 1 Tablet by mouth 4 times daily. ??? canagliflozin (INVOKANA) 300 mg tablet Take 1 Tablet by mouth daily. ??? ciclopirox (PENLAC) 8 % solution Apply to affected nails daily as instructed (Patient not taking: Reported on 06/23/2022) 1 Bottle 1 ??? cyclobenzaprine (FLEXERIL) 10 mg tablet Take 1 Tablet by mouth at bedtime. 90 Tablet 0 ??? ergocalciferol (DRISDOL; VITAMIN D2) 1,250 mcg (50,000 unit) capsule Take 1 Capsule by mouth once a week. ??? estradioL (ESTRACE) 0.01 % (0.1 mg/gram) vaginal cream Place 0.5 g vaginally three times a week. 42 g 11 ??? fluconazole (DIFLUCAN) 150 mg tablet Take 1 Tab by mouth every 72 hours. (Patient not taking: Reported on 03/15/2023) 2 Tab 0 ??? folic acid (FOLVITE) 1 mg tablet Take 1 mg by mouth daily. Reported on 03/13/2017 (Patient not taking: Reported on 07/14/2021) ??? furosemide (LASIX) 40 mg tablet Take 40 mg by mouth daily. Reported on 03/13/2017 (Patient not taking: Reported on 03/15/2023) ??? gabapentin (NEURONTIN) 300 mg capsule Take 2 Capsules by mouth at bedtime. ??? glipiZIDE (GLUCOTROL) 10 mg tablet Take 1 Tablet by mouth 2 times daily. ??? insulin lispro (HUMALOG) 100 unit/mL injection Inject 15 Units into the skin 2 times daily. ??? lidocaine 5 % (LIDODERM) 5 % patch Place 1 Patch onto the skin daily. ??? metformin (GLUCOPHAGE) 500 mg tablet Take 1 Tablet by mouth 3 times daily before meals. ??? Miscellaneous Medication - See Admin Instructions Boric acid caps 600 mg each. Sig: insert vaginally HS twice weekly (Patient not taking: Reported on 07/14/2021) 80 Each 0 ??? Miscellaneous Medication - See Admin Instructions Boric acid capsules [address] one capsulevaginally HS x 14 days. Call patient when ready. 14 Each 0 ??? nitroglycerin 0.4 % (w/w) ointment Apply 1 application topically as needed. (Patient not taking: Reported on 07/14/2021) ??? nystatin (MYCOSTATIN) powder APPLY EXTERNALLY THREE TIMES A DAY ??? omeprazole (PRILOSEC) 20 mg capsule Take 1 Capsule by mouth daily. ??? oxyCODONE-acetaminophen (PERCOCET) 10-325 mg per tablet Take 1 Tablet by mouth every 4 hours asneeded for Pain. Takes 5 tabs daily ??? pediatric multivitamin no.76 tablet,chewable Take 1 Tab by mouth. ??? triamcinolone (KENALOG) 0.1 % ointment APPLY TOPICALLY TO ARMS LEGS AND ABDOMEN TWO TIMES A DAYAS NEEDED (Patient not taking: No sig reported) No current facility-administered medications for this visit. No Known Allergies Review of Systems A ten point review of systems was performed. Pertinent positives are listed below, all others are negative. Vital signs: vitals were not taken for this visit. PHYSICAL EXAM: General:??AO x 3, NAD; presents today in wheelchair Lower extremity:??Palpable DP and PT pulses. ??Skin temperature gradient within normal limits. ??Capillary filling time less than 3 seconds to all toes. ??Very mild callus buildup left plantar heel. No underlying open areas. No erythema or edema. No pain on palpation..??Fat pad atrophy central heel.??No other open lesions. ??Protective sensation absent. ??Unable to assess manual muscle testing onthe left. ? ASSESSMENT: 1. Hyperkeratosis 2. Type 2 diabetes mellitus with diabetic polyneuropathy, with long-term current use of insulin ([facility]) ([facility]) No orders of the defined types were placed in this encounter. PLAN: Ms. Benoit presents today for follow-up. She is doing very well. Very minimal callus buildup on the left heel. No recurrence of the wound. No concerning findings on the right heel. She will continue close monitoring. Continue good supportive shoes. I will see her back as needed. She knows to call with any questions or concerns and is happy with this plan. Portions of this document have been prepared with speech recognition software or keyboard marketing database analyst techniques. Minor irregularities or keyboarding misprints may be present documented in this encounter Plan of Treatment Upcoming Encounters Date Type Department Care Team (Late st Contact Info) Description 05/22/2024 10:00 EDT Office Visit [facility] Foot & Ankle Program [place] [address] Edwige Keller, CLAUS [address] [place] [address] 07/18/2024 13:00 EDT Procedure visit [facility] Women's Services - [facility] [address] [place] [address] Jessica Murray, POLO 111 [facility], [address] [place] [phone] documented as of this encounter Visit Diagnoses Diagnosis Hyperkeratosis- Primary Acquired keratoderma Type 2 diabetes mellitus with diabetic polyneuropathy, with long-term current use of insulin ([facility]) documented in this encounter Care Teams Evp Relationship Specialty Start Date End Date Ruth Munoz, BUSINESS CONTINUITY STRATEGY DIRECTOR [address] [place] [phone] PCP - General 04/26/19 06/19/23 documented as of this encounter
--- OUTSIDE RECORDS SUMMARY | 2024-05-15 11:01 | XMS_ITS | Encounter Summary ---
Author Organization [facility] Address [address] [place] [address] Care Team Providers Care Development Vice President Name Role Phone MunozRuth jerome Lilibeth JUAREZ Primary Care Provider + Reason for Visit * Reason Comments Follow-up Encounter Details Date Type Department Care Team (Late st Contact Info) Description 06/14/2023 8:45 EDT Office Visit [facility] Pelvic Medicine and Reconstructive Surgery - Medical Office [facility] [address] [place] [phone] Chula Whitley MD [address] [facility], [address] [place] [address] Rectocele (Primary Dx) Social History [...] Progress Notes * Chula Whitley MD - 06/14/2023 0845 EDT Colorectal Surgery Chief Complaint: rectocele HPI: Patient is a 57 y.o. female being seen at the request of Dr. Rivera for evaluation of fecal incontinence. Patient has a h/o DM, had gastric bypass surgery, psoriasis, no longer on humira, on percocet ( 6 times/day--prescribed by [place] PCP) Follows with Dr. Rivera and Rosaura (T) Pt is concerned this may be related to her worsening undiagnosed Neurologic disease. 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 Pt states she was exposed to toxic sprays when playing in the [employer] as a child. As a teen, she [...] Prior colonoscopy: about a year ago-- in [place]--had poor prep, one polyp found. Is planning [...] PMH PSH Past Medical History: Diagnosis Date ??? Unspecified cerebral artery occlusion with cerebral infarction Past Surgical History: Procedure Laterality Date ??? CERVIX LESION DESTRUCTION 07/15/2009 ??? GASTRIC BYPASS SURGERY 01/04/16 ??? LEEP 07/15/2009 ??? TUBAL LIGATION Social History Family history Social History Tobacco Use ??? Smoking status: Never ??? Smokeless tobacco: Never Substance Use Topics ??? Alcohol use: No Family History Problem Relation Age of Onset ??? Colon Cancer Father ??? Diabetes Father ??? Stroke Father ??? Cervical Cancer Sister ??? Diabetes Sister ??? Heart Disease Sister MD at age 42 = ??? Diabetes Mother ??? Diabetes Brother ??? Diabetes Maternal Aunt ??? Diabetes Maternal Uncle Current Outpatient Medications Medication ??? adalimumab (HUMIRA,CF, SUBQ) ??? baclofen (LIORESAL) 10 mg tablet ??? canagliflozin (INVOKANA) 300 mg tablet ??? ciclopirox (PENLAC) 8 % solution ??? cyclobenzaprine (FLEXERIL) 10 mg tablet ??? ergocalciferol (DRISDOL; VITAMIN D2) 1,250 mcg (50,000 unit) capsule ??? estradioL (ESTRACE) 0.01 % (0.1 mg/gram) vaginal cream ??? fluconazole (DIFLUCAN) 150 mg tablet ??? [...] Medication - See Admin Instructions ??? nitroglycerin 0.4 % (w/w) ointment ??? nystatin (MYCOSTATIN) powder ??? omeprazole (PRILOSEC) 20 mg capsule ??? oxyCODONE-acetaminophen (PERCOCET) 10-325 mg per tablet ??? pediatric multivitamin no.76 tablet,chewable ??? triamcinolone (KENALOG) 0.1 % ointment No current facility-administered medications for this visit. Allergies No Known Allergies Objective: There were no vitals taken for this visit. Physical Exam: Gen: awake, alert, oriented x 3 NAD Neck: soft, no thyromegaly, no carotid bruits, no cervical lymphadenopathy CV: RRR no M/R/G Pulm: CTA bilat, no wheezes or rhonchi Abd: soft, nontender, nondistended, +bowel sounds, well-healed abdominal plasties over the patient Ext: warm, well perfused,no edema Anoscopy Procedure Note I explained the procedure, as well as benefits of the procedure, alternative treatments, and consequences of no treatment to patient. Verbal consent for the procedure was obtained. A pre-procedure verification was conducted prior to the procedure. Final verification/timeout immediately prior to procedure has been conducted by the attending provider, including all members of the procedural team as appropriate to their involvement in the procedure. The patient's identity, procedure, and when applicable the: side/site, patient position, availability of special equipment or special requirements was verbally confirmed prior to the procedure. With a design release engineer present the patient was placed in left lateral decubitumposition the buttocks werespread. The anoscope was inserted and the anal canal was inspected circumferentially. Findings were Anus: normal Skin: intact Sensation and reflexes: no anal wink, intact sensation no prolapse or perineal decent with valsalva no anal fissure no masses no hemorrhoids sphincter muscles: intact mod rectocele Normal tone minimal squeeze without use of accessory gluteal muscles soft stool With stimulation of defecation, she is unable to exert pelvic pressure and her sphincter muscles donot relax. Data Review: Labs: CBC: Lab Results Component Value Date WBC 11.90 04/26/2019 RBC 5.38 (H) 04/26/2019 HGB 14.7 04/26/2019 HCT 45.1 (H) 04/26/2019 PLT 284 04/26/2019 CMP: Lab Results Component Value Date GLUCOSEFINGE 187 (H) 12/01/2009 NA 140 04/26/2019 K 4.1 04/26/2019 CL 106 04/26/2019 CO2 21 (L) 04/26/2019 BUN 17 04/26/2019 CREATININE 0.35 (L) 04/26/2019 CALCIUM 9.7 04/26/2019 AST 21 04/26/2019 ALT 22 04/26/2019 ALKPHOS 109 04/26/2019 Cardiac: No results found for: CK, CKMBINDEX, TROPONINICoagulation: No results found for: PROTIME, INR, PTTABG: Assessment: Martha Benoit is a(n) 57 y.o. 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 Plan: -Discussed that rectocele repair would likely not improve her evacuation disorder as this is more of an neurologic issue. If and when Dr. Rivera consider doing an anterior repair, I would plan to do rectocele repair at the same time to restore her anatomy into the right area. Again, she understands that this would not improve her neurologic symptoms and that must be worked on with pelvic floor physical therapy to stave off worsening in the future including rectal prolapse, hemorrhoids, etc. She does seem to have some element of anismus as well. -to get colonoscopy/path from [place]--she knows she needs to repeat her colonoscopy at some point,but they have ruled out big bulky bad disease at this point. -If she is to undergo surgery, would recommend she see her PCP for preop exam--if we did surgery, we would prescribe her 10 pills total for postop pain (on chronic pain meds) PFPT will be an important part of staving off her neurogenic dysfunction including anismus and inability to exert pressure from above. She may also benefit from evacuation enemas, suppositories, abdominal massage, anal stimulation. I spent a total of 45 minutes on the date of this encounter meeting with the patient and reviewing documentation/coordinating care as described in the above note. This was separate from any procedures performed at the time of the visit. Chula Whitley MD 06/12/2023 11:45 documented in this encounter Plan of Treatment Upcoming Encounters Date Type Department Care Team (Late st Contact Info) Description 05/22/2024 10:00 EDT Office Visit [facility] Foot & Ankle Program - [address] [place] [address] Edwige Keller [address] [place] [address] 07/18/2024 13:00 EDT Procedure visit [facility] Women's Services - [facility] [address] [place] [address] Jessica Murray NP [address] [facility], [address] [place] [phone] documented as of this encounter Results * (ABNORMAL) BASIC METABOLIC PANEL (BMP) (12/28/2023 9:27 EST) Sodium 143 136 - 145 mmol/L 12/28/2023 11:26 EST [facility] Potassium 4.1 3.5 - 5.0 mmol/L 12/28/2023 11:26 EST [facility] Chloride 103 96 - 110 mmol/L 12/28/2023 11:26 EST [facility] CO2 Total 29 22 - 32 mmol/L 12/28/2023 11:26 EST [facility] Anion Gap 11 5 - 14 mmol/L 12/28/2023 11:26 [facility] Glucose 107(H) 70 - 99 mg/dl 12/28/2023 11:26 [facility] Calcium 8.8 8.5 - 10.5 mg/dL 12/28/2023 11:26 [facility] BUN 9(L) 10 - 26 mg/dL 12/28/2023 11:26 [facility] Creatinine 0.35(L) 0.52 - 1.04 mg/dL 12/28/2023 11:26 [facility] eGFR 117 >60 mL/min/1.73 m2 12/28/2023 11:26 [facility] Blood VENOUS BLOOD / Unknown Venipuncture / Unknown 12/28/2023 9:27 EST 12/28/2023 9:27 EST Chula Whitley MD CHEMISTRY & BLOOD GA S ORDERABLES Performing Organization Address City/State/[facility] Co de Phone Number [facility] [address] [place] [address] * COMPLETE BLOOD COUNT (12/28/2023 9:27 EST) WBC 6.98 4.00 - 12.40 K/cmm 12/28/2023 10:58 [facility] RBC 4.54 3.86 - 5.04 M/cmm 12/28/2023 10:58 [facility] Hemoglobin 12.9 11.6 - 15.2 g/dL 12/28/2023 10:58 [facility] HCT 39.1 34.9 - 44.4 % 12/28/2023 10:58 [facility] MCV 86 81 - 98 fL 12/28/2023 10:58 [facility] MCH 28.4 26.7 - 33.3 pg 12/28/2023 10:58 [facility] MCHC 33.0 32.1 - 35.9 g/dL 12/28/2023 10:58 [facility] RDW-CV 12.4 <14.7 % 12/28/2023 10:58 EST [facility] RDW-SD 39.1 <50.4 fl 12/28/2023 10:58 EST [facility] PLT 230 141 - 377 K/cmm 12/28/2023 10:58 EST [facility] MPV 11.2 9.5 - 12.7 fL 12/28/2023 10:58 EST [facility] Blood VENOUS BLOOD / Unknown Venipuncture / Unknown 12/28/2023 9:27 EST 12/28/2023 9:27 EST Chula Whitley MD HEMATOLOGY & PF4 ORD ERABLES [facility] [address] [place], [place] [phone] documented in this encounter Visit Diagnoses Diagnosis Rectocele- Primary documented in this encounter Care Teams Development Vice President Relationship Specialty Start Date End Date Ruth Munoz, COOK SUPERVISOR [address] [place] [address] PCP - General 04/26/19 06/19/23 documented as of this encounter
--- OUTSIDE RECORDS SUMMARY | 2024-05-15 11:01 | XMS_ITS | Encounter Summary ---
Author Organization [facility] Address [address] [place] [address] Care Team Providers Care Tool Grinder Set Up Operator Gear Name Role Phone MunozuRth jerome Lilibeth JUAREZ Primary Care Provider + Reason for Visit * Reason Comments Procedure Encounter Details Date Type Department Care Team (Late st Contact Info) Description 06/23/2022 9:45 EDT Procedure visit [facility] - [address] [phone] Katy Lubin MD [address] [facility], [address] [place] [address] Cervical 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 (Primary Dx) Social History Tobacco Use Types [...] Sign Reading Time Taken Comments Blood Pressure 124/62 06/23/2022 0934 EDT Pulse - - Temperature - - Respiratory Rate - - Oxygen Saturation - - Inhaled Oxygen Concentration - - Weight - - Height - - Body Mass Index - - documented in this encounter Functional Status Functional [...] as of this encounter Progress Notes * Katy Lubin MD - 06/23/2022 0945 EDT Images from the original note were not included. Colposcopy Procedure Note 56 y.o. Indications: HPV positive June 2021, did not use any vaginal estrogen. Very concerned with prolapse and bladder/bowel issues. History of cervical cytology, colposcopy, treatment: 06/2009, LEEP - [facility] I - neg [...] pos, HPV 18/45 pos, HPV 16 neg Current contraception none Menopausal Status: Postmenopausal, Age at Menopause 48 Prior Hysterectomy: No non-smoker HIV: No Received Gardasil vaccine: No, Age at vaccination: n/a HPV vaccine given prior to onset intercourse: No Procedure Details The risks and benefits of the procedure and written informed consent obtained. Vulva inspected. Speculum placed in vagina and visualization of cervix achieved. Vagina and cervix soaked with acetic acid solution. Cervix and vagina painted with Lugol's solution. Exam was chaperoned by Katy Lubin MD. Image: Cervical colposcopy: Visualization of the cervix: Fully Visualized Visualization of the SCJ: Partially visualized within the endocervical canal - most of SCJ not seen. Acetowhite Changes: Yes Normal Colposcopic Findings: Atrophic vaginal and cervical cells Abnormal Colposcopic Findings: Lesions Present: Yes Location of Lesion: 6 and 7 o'clock at the SCJ - lugol neg - extends posterior off cervix Vaginalcolposcopy: 9 o'clock on the lateral vaginal wall Vulvar inspection: No visible lesions. Clinical Impressions: Colposcopy: Low Grade Specimens: Cervix: 6 and 7 O'Clock, ECC - brush and curet. Right vaginal wall at 9 o'clock within top 1/3 of the vaginal canal Complications: None. Plan: Patient will be called with pathology results and recommendations next week. Instructions sheet given to patient. Allie Toussaint MD 06/23/22 10:27 OBGYN PGY-2 Pager #[phone] Attestation statement: I was present during the entire procedure and agree with the resident's note. Katy Lubin MD 06/23/2022 10:42 documented in this encounter Plan of Treatment Upcoming Encounters Date Type Department Care Team (Late st Contact Info) Description 05/22/2024 10:00 EDT Office Visit [facility] - [address] [place], [place] [phone] Edwige Keller DPM [address] [place] [address] 07/18/2024 13:00 EDT Procedure visit [facility] - [address] [phone] Jessica Murray NP [address] [facility], [address] [place] [phone] documented as of this encounter Procedures Procedure Name Priority Date/Time Associated Diagnosis Comments SURGICAL PATHOLOGY Routine 06/23/2022 10 :41 EDT Cervical 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 documented in this encounter Results * SURGICAL PATHOLOGY (06/23/2022 10:41 EDT) Note to Patient The following pathology results have been interpreted by your pathologist and may be available to you before your health provider has had the opportunity to review them. Please allow time for your provider to receive these results and explore management options, if applicable. 06/29/2022 13:28 EDT [facility] Final Diagnosis A. CERVIX, 6 AND 7 O'CLOCK, BIOPSY: - Transformation zone mucosa with atypical squamous metaplasia. See comment. B. ENDOCERVIX, CURETTAGE: - Fragments of endocervical epithelium with no significant pathologic features. C. VAGINA, RIGHT LATERAL WALL, BIOPSY: - Polypoid squamous mucosa with chronic inflammation and reactive changes. 06/29/2022 13:28 EDT [facility] Diagnosis Comment In the Cervix biopsies at 6 and 7 o'clock (part A), the features are most in keeping with atypical squamous metaplasia, as supported by the immunostains below. No definitive high-grade dysplasia is identified in this sample. Rotor Plate Washer slides of this case were reviewed at the intradepartmental consultation conference. Immunoperoxidase stains were performed on this case to further characterize the lesion. ANTIBODY(CLONE)(BLO CK):RESULT P16 (E6H4TM, Cobden) (A1): Cytoplasmic expression only Ki67 (MIB-1) (K2, Leica) (A1): Low proliferative index. NOTE: One or more of the reagents used in immunoperoxidase testing in this case may not have been cleared or approved by the U.S. Food and Drug Administration (FDA). The FDA has determined that such clearance or approval is not necessary. These tests are used for clinical purposes. They should not be regarded as investigational or for research. These reagents' performance characteristics have been determined by [facility] and/or by the referring laboratory. The positive and negative controls worked appropriately. If immunoperoxidase staining has been performed on alcohol fixed cytology specimens, which has not been fully validated, the assays should be interpreted with caution and correlated with clinical data. This laboratory is certified under the Clinical Laboratory Improvement Amendments of 1988 (CLIA-88) as qualified to perform high complexity clinical laboratory testing. 06/29/2022 13:28 [facility] Attestation There was significant resident/fellow involvement in the diagnostic evaluation of this case. By the signature below, the attending physician certifies that they have personally conducted a gross and/or microscopic examination of the described specimens and rendered or confirmed the above diagnosis. 06/29/2022 13:28 [facility] at 1328 Clinical History HPV 18/45 positive; clinical diagnosis code: R87.810 06/29/2022 13:28 [facility] Gross Description A. Received in formalin labelled with proper patient identification (initials P, J) and CXs bx 6 and 7 o'clock are 2 pink white tissues measuring 0.4 x 0.3 x 0.2 cm and 0.5 x 0.3 x 0.3 cm submitted intact in A1. B. Received in formalin labelled with proper patient identification (initials P, J) and ECC is a scant amount of blood-tinged mucinous material measuring 0.2 x 0.1 x 0.1 cm. Submitted entirely in B1. C. Received in formalin labelled with proper patient identification (initials P, J) and vag bx on right later wall is a russell-pink tissue measuring 0.3 x 0.3 x 0.2 cm. Submitted intact in C1. BERE CHENG(ASCP) 06/23/2022 18:36 06/29/2022 13:28 [facility] Resident/Fell ow: Raymon Barba DO 06/29/2022 13:28 [facility] Performing Lab [facility] 06/29/2022 13:28 [facility] Scanned Images 06/29/2022 13:28 [facility] Tissue ENTIRE VAGINA / Unknown Collection, Other / Unknown 06/23/2022 10:41 EDT 06/23/2022 15:10 EDT Tissue specimen (specimen) ENDOCERVICAL STRUCTURE / Unknown 06/23/2022 10:41 EDT 06/23/2022 15:10 EDT Tissue specimen (specimen) VAGINAL STRUCTURE / Unknown 06/23/2022 10:41 EDT 06/23/2022 15:10 EDT Katy Lubin MD PATHOLOGY ORDERABL ES [facility] [address] [place] [address] documented in this encounter Visit Diagnoses Diagnosis Cervical 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- Primary documented in this encounter Care Teams Tool Grinder Set Up Operator Gear Relationship Specialty Start Date End Date Ruth Munoz, LARRY [address] [place] [phone] PCP - General 04/26/19 06/19/23 documented as of this encounter
--- OUTSIDE RECORDS SUMMARY | 2024-05-15 11:01 | XMS_ITS | Encounter Summary ---
Author Organization [facility] Address [address] [place] [address] Care Team Providers Care Warehouse Checker Name Role Phone Katia Haywood Primary Care Provider [phone] Reason for Visit * Reason Onset Date Comments Other 07/10/2023 Encounter Details Date Type Department Care Team (Late st Contact Info) Description 07/10/2023 Telephone [facility] General Surgery - [facility] [address], [place] [id number] Chula Whitley MD [address] [facility], [address] [place] [address] Other Social History Tobacco Use [...] encounter Miscellaneous Notes * Telephone Encounter - Jazmyn Garrett RN - 07/12/2023 1700 EDT Images from the original note were not included. Chula Whitley MD [facility] Nurse; Phylicia Venegas, BRENDAN 2 hours ago (14:19) I would recommend colonoscopy prior to OR in October. ??She may have that done in [place] or here, but given her poor prep, she has not completed adequate colon surveillance she is high risk as she had polyps in the past. Phylicia, would you please talk options with her? Thank you for documenting her questions K Phone call to the patient - I advised her that Dr. Whitley does want the colo prior to proceeding with the surgery. I advised her that has requested one of her specialty nurses call her and further discuss her options. Patient was appreciative of the call and is appreciative that someone will reach out and further discuss her options. JAZMYN GARRETT RN 07/12/2023 17:02 * Telephone Encounter - Jazmyn Garrett RN - 07/12/2023 1027 EDT Phone call to the patient - I spent a total of 20 minutes on the phone with her. The patient expressed a lot of resistance and hesitancy regarding colonoscopies moving forward. With having had two inthe last two years and being due for another she is not happy with having another. Multiple topics discussed - is a repeat colo so soon really needed? Encouraged her to contact her ordering provider regarding this AND the performing office to see what their recommendations are. What does a multiple day prep look like for this patient? Encouraged her again to reach out to the performing provider as their protocols may differ from [facility]'s protocols. Is a colo needed for the rectocele repair? Advised that I will route this question to KE as the note does not clearly state that this is a requirement. If it is, patient expresses potential desire todefer the rectocele repair portion of the surgery. Patient wonders if there are other prep options like doing an at home enema. Explained why this is likely not an option d/t where the scopes go during the procedures and decreased likely tsai that visibility will be maximized. Patient states that if the colo is not needed for surgery she would like to defer future colos for another 3-4 years. Explained that if KE advises that the colo is NOT needed for surgery, this does not mean that any other colo recommendations should be disregarded. Advised that she still have this c onversation with her care team and determine a plan together for what her future testing/treatment should look like. Patient was very hesitant toward all recommendations for future discussion that was suggested by myself. Ultimately I expressed that if she is not expressing her concerns and frustrations to the correct people that her concerns will not accurately be addressed, again advising her that she needs to call her care team that is ordering these recurrent colos. Patient expressed understanding and agrees with the plan. Routing message to KE to see if colo is apre-op requirement. Will call the patient back and advise on the answer when we get a response. JAZMYN GARRETT RN 07/12/2023 10:53 * Telephone Encounter - Solange Ye RN - 07/11/2023 0829 EDT Images from the original note were not included. Chula Whitley MD Barber, Suzanne, RN; Phylicia Venegas, BRENDAN She may need a several day prep. * Telephone Encounter - Solange Ye RN - 07/10/2023 1110 EDT Call to pt and she states that she had a colonoscopy done in 2020 and 2021. She had gastric bypass and cannot tolerate the Go-litely. She states that her last colonoscopy she took OsmoPrep but she isnot certain. She also reports that she didn't eat for 4 days. This didn't result in an adequate prep. She is aware that Dr. Whitley would like her to have a repeat colonoscopy but she is concerned about getting ill with the prep. She would like to know if MD has ideas about a prep that would be easier and more effective. She is coming to the office today and will bring a copy of recent colonoscopy report to have scanned in her chart. * Telephone Encounter - Tracy Ayala - 07/10/2023 0925 EDT Martha is having a co-surgery with Gutierrez/Nicole November 16, 2023. When Dr. Whitley saw her [facility] she mentions getting another colonoscopy prior to surgery. I called Martha to ask her if she was going to [place] to have it or did she want Dr. Whitley to do it. She let me know that she would rather not have another one as she had gastric bypass surgery and she cannot tolerate a prep and was very sick on her last one. She has a lot of concerns. She has an appoontment for PT at the today, so I suggested she go in person and ask to speak with one of the nurses there to discuss her problem (unless someone wants to call her prior to this afternoon). documented in this encounter Plan of Treatment Upcoming Encounters Date Type Department Care Team (Late st Contact Info) Description 05/22/2024 10:00 EDT Office Visit [facility] Foot & Ankle Program - [address] [place] [address] Edwige Keller DPM [address] [place] [address] 07/18/2024 13:00 EDT Procedure visit [facility] Women's Services - [facility] [address] [place] [address] Jessica Murray NP 111 [facility], [facility], [address] [place] [address] documented as of this encounter Visit Diagnoses Not on filedocumented in this encounter Care Teams Warehouse Checker Relationship Specialty Start Date End Date RukhsanaKatia [address] [id number] PCP - General Family Medicine - Primary Care 06/20/23 documented as of this encounter
--- OUTSIDE RECORDS SUMMARY | 2024-05-15 11:01 | XMS_ITS | Encounter Summary ---
Author Organization [facility] Address [address] [place] [address] Care Team Providers Care Account Executive Sales Representative Name Role Phone Ruth Munoz APRN Primary Care Provider + Reason for Referral * Radiology Services (Routine/Next Available) - Authorization Not Required Specialty Diagnoses / Procedures Referred By Contac t Referred To Contact Diagnoses Right knee pain, unspecified chronicity Procedures XR KNEE LEFT 3 VIEWS Telma Brady NP [address] [place] [address] [facility] Referral ID Status Reason Start Date Expiration Date Visits Requested Visits Authorized [id number] Authorization Not Required 05/02/2023 1 1 * Radiology Services (Routine/Next Available) - Authorization Not Required Specialty Diagnoses / Procedures Referred By Contac t Referred To Contact Diagnoses Right knee pain, unspecified chronicity Procedures XR KNEE RIGHT 4 OR MORE VIEWS Telma Brady NP [address] [place] [address] [facility] Referral ID Status Reason Start Date Expiration Date Visits Requested Visits Authorized [id number] Authorization Not Required 05/02/2023 1 1 Encounter Details Date Type Department Care Team (Late st Contact Info) Description 04/26/2023 Orders Only [facility] Total Joint Program [place] [address] Telma Brady, POLO [address] [place] [address] Right knee pain, unspecified chronicity (Primary Dx) Social History Tobacco Use Types [...] Info) Description 05/22/2024 10:00 EDT Office Visit [facility] Foot & Ankle Program - [place] [address] Edwige Keller DPM [address] [place] [address] 07/18/2024 13:00 EDT Procedure visit [facility] Women's Services - [facility] [address] [place] [address] Jessica Murray, POLO 111 [facility], [facility], [address] [place] [address] documented as of this encounter Results * XR KNEE LEFT 3 VIEWS (05/04/2023 8:55 EDT) Anatomical Region Laterality Modality Lower Extremities Left Computed Radio graphy 05/04/2023 12:5 8 EDT Impressions 05/04/2023 12:58 EDT FINDINGS / IMPRESSION: * ??Right knee 4 views: Moderate joint effusion. Mild tricompartmental osteophyte formation. Normal mineralization. * ??Left knee 3 views: Mild tricompartment osteophytic spurring most notable medially. [id number] Narrative 05/04/2023 12:58 EDT EXAM/TECHNIQUE: 05/04/2023 8:45 AM ??XR KNEE LEFT 3 VIEWS, XR KNEE RIGHT 4 OR MORE VIEWS 3 (accession [id number]), 4 (accession [id number]) views ?? HISTORY: ??left knee for comparison;M25.561:Right knee pain, unspecified chronicity Procedure Note Clifford Santamaria MD - 05/04/2023 EXAM/TECHNIQUE: 05/04/2023 8:45 AM XR KNEE LEFT 3 VIEWS, XR KNEE RIGHT 4OR MORE VIEWS 3 (accession [id number]), 4 (accession [id number]) views HISTORY: left knee for comparison;M25.561:Right knee pain, unspecifiedchronicity IMPRESSION FINDINGS / IMPRESSION: * Right knee 4 views: Moderate joint effusion. Mild tricompartmentalosteophyte formation. Normal mineralization. * Left knee 3 views: Mild tricompartment osteophytic spurring mostnotable medially. [id number] Telma Brady NP IMG DIAGNOSTIC IMAGI NG ORDERABLES * XR KNEE RIGHT 4 OR MORE VIEWS (05/04/2023 8:55 EDT) Anatomical Region Laterality Modality Lower Extremities Right Computed Radio graphy 05/04/2023 12:5 8 EDT Impressions 05/04/2023 12:58 EDT FINDINGS / IMPRESSION: * ??Right knee 4 views: Moderate joint effusion. Mild tricompartmental osteophyte formation. Normal mineralization. * ??Left knee 3 views: Mild tricompartment osteophytic spurring most notable medially. [id number] Narrative 05/04/2023 12:58 EDT EXAM/TECHNIQUE: 05/04/2023 8:45 AM ??XR KNEE LEFT 3 VIEWS, XR KNEE RIGHT 4 OR MORE VIEWS 3 (accession [id number]), 4 (accession [id number]) views ?? HISTORY: ??left knee for comparison;M25.561:Right knee pain, unspecified chronicity Procedure Note Clifford Santamaria MD - 05/04/2023 EXAM/TECHNIQUE: 05/04/2023 8:45 AM XR KNEE LEFT 3 VIEWS, XR KNEE RIGHT 4OR MORE VIEWS 3 (accession [id number]), 4 (accession [id number]) views HISTORY: left knee for comparison;M25.561:Right knee pain, unspecifiedchronicity IMPRESSION FINDINGS / IMPRESSION: * Right knee 4 views: Moderate joint effusion. Mild tricompartmentalosteophyte formation. Normal mineralization. * Left knee 3 views: Mild tricompartment osteophytic spurring mostnotable medially. [id number] Telma Brady NP IMG DIAGNOSTIC IMAGI NG ORDERABLES documented in this encounter Visit Diagnoses Diagnosis Right knee pain, unspecified chronicity- Primary Right knee pain, unspecified chronicity documented in this encounter Care Teams Account Executive Sales Representative Relationship Specialty Start Date End Date Ruth Munoz, TINSEL MACHINE OPERATOR [address] [place] [address] PCP - General 04/26/19 06/19/23 documented as of this encounter
--- OUTSIDE RECORDS SUMMARY | 2024-05-15 11:01 | XMS_ITS | Encounter Summary ---
Author Organization [facility] Address [address] [place] [address] Care Team Providers Care Plaster Machine Operator Name Role Phone Katia Haywood Primary Care Provider [phone] Reason for Visit * Reason Onset Date Comments Appointment Related 07/03/2023 Encounter Details Date Type Department Care Team (Late st Contact Info) Description 07/03/[address] [facility] Rehabilitation Therapy - Medical Office [address] [address] Therapy, Outpatient, Appointment Related Social History Tobacco Use Types [...] encounter Miscellaneous Notes * Telephone Encounter - Vaishali Vernon - 07/03/2023 1424 EDT Telephone Information for Cancelled Appointments The patient called to cancel their appointment with Margi Wolf PT on 07/03/23 at 15:30 due to no transportation The patient will be at next scheduled appointment Vaishali Vernon 07/03/2023 documented in this encounter Plan of Treatment Upcoming Encounters Date Type Department Care Team (Late st Contact Info) Description 05/22/2024 10:[address] [facility] Foot & Ankle Program - [address] [address] Edwige Keller DPM [address] [place] [address] 07/18/2024 13:[address] [facility] Women's Services - [facility] [address] [place], [place] [id number] Jessica Murray NP 111 [facility], [facility], [address] [place] [address] documented as of this encounter Visit Diagnoses Not on filedocumented in this encounter Care Teams Plaster Machine Operator Relationship Specialty Start Date End Date Katia Haywood [address] [place] [phone] PCP - General Family Medicine - Primary Care 06/20/23 documented as of this encounter
--- OUTSIDE RECORDS SUMMARY | 2024-05-15 11:01 | XMS_ITS | Encounter Summary ---
Author Organization [facility] Address [address] [place] [address] Care Team Providers Care Residential Solar Sales Consultant Name Role Phone AlexanderAidanantony Mcelroy APRN Primary Care Provider + Reason for Visit * Reason Onset Date Comments Surgery Scheduling 06/15/2023 Encounter Details Date Type Department Care Team (Late st Contact Info) Description 06/15/2023 Telephone [facility] Pelvic Medicine and Reconstructive Surgery - Medical Office Building [address] [address] Chelsi Rivera MD [address] [place] [address] Medical Office [facility], [address] [address] Surgery Scheduling Social History Tobacco [...] * Telephone Encounter - Anny Payne - 06/15/2023 0835 EDT Pt saw both Dr. Rivera and Dr. Whitley on 06/14/[address] Rivera wants pt to do PFPT. If pt decides to go forward with surgery she will contact office. Surgery requirements from Dr. Whitley Need colonoscopy report path from [place] 06/13' PCP H & P Dr. Whitley ordered labs Consent done from Dr. Whitley if we go forward documented in this encounter Plan of Treatment Upcoming Encounters Date Type Department Care Team (Late st Contact Info) Description 05/22/2024 10:00 EDT Office Visit [facility] Foot & Ankle Program - [address] [place], [place] [phone] Edwige Keller DPM [address] [place] [address] 07/18/2024 13:00 EDT Procedure visit [facility] Women's Services - [address] [phone] Jessica Murray NP 111 [facility], [address] [place] [address] documented as of this encounter Visit Diagnoses Not on filedocumented in this encounter Care Teams Residential Solar Sales Consultant Relationship Specialty Start Date End Date Ruth Munoz, LARRY [address] [facility] [place] [phone] PCP - General 04/26/19 06/19/23 documented as of this encounter
--- OUTSIDE RECORDS SUMMARY | 2024-05-15 11:01 | XMS_ITS | Encounter Summary ---
Author Organization [facility] Address [address] [place] [address] Care Team Providers Care Head Operator Sulfide Name Role Phone Ruth Munoz ACID MIXER Primary Care Provider + Reason for Visit * Reason Comments New Patient Visit * Referral (Routine) - Receiving Office to Obtain Authorization Specialty Diagnoses / Procedures Referred By Patricio monsivais Referred To Contact Pelvic Medicine Diagnoses Unspecified symptoms and signs involving the genitourinary system Ruth Munoz, ACID MIXER [address] [place] [phone] [facility] Pelvic Medicine [facility] [address] [place] [id number] Referral ID Status Reason Start Date Expiration Date Visits Requested Visits Authorized [id number] Receiving Office to Obtain Authorization 1 1 Encounter Details Date Type Department Care Team (Latest Contact Info) Description 02/25/2021 9:15 EDT Telemedicine [facility] Pelvic Medicine and Reconstructive Surgery - Medical Office Building [facility] [address] [place] [phone] Chelsi Rivera MD [address] [place] [address] Medical Office Building, [address] [place] [address] [phone] History of urinary hesitancy (Primary Dx) Social History Tobacco Use Types [...] this encounter Patient Instructions * Patient Instructions* Farrukh Gibbons - 02/25/2021 9:15 EDT Urodynamic Test Instructions You have been referred for Urodynamics testing at the Pelvic Medicine & Reconstructive Surgery. Your appointment has been scheduled on, 03/23/21 @ 9:00am With Dr. Kaplan The Procedure will be performed in the clinic. Please allow approximately 1 ?? hours for the procedure. The test is to help us determine how your bladder fills, stores, and eliminates the fluids. Directions for the procedure are as follows: ? Arrive at the clinic with a comfortably full bladder ? You may eat before the test however we ask that you stop drinking fluids 1 hour before your procedure time. ? Please let us know if you need special accommodations to transfer to an exam table ie.- (Slide board, Nikky lift.) If a Nikky life is needed, please come to the test with your sling positioned under you. ? Dr.Urzsula Kaplan's patients need to have a urine test done, at an outpatient lab of your choice, 14 days prior to the procedure date 03/09/[address] [facility] The appointment will begin with reviewing the procedure, answering any questions that you have, followed by signing a consent form. The first part of the testing requires you to empty you bladder. You will sit on a specialized chair that will act as the commode for this part of the test as well as for the remainder of the testing. We will need to test your urine to verify that you do not have a bacterial infection. A urinary infection will postpone the testing to another day and time. After we verify that you do not have an infection, we will proceed with the remainder of the Urodynamic testing. We will ask you to change into a patient gown. You will be able to keep your blouse/shirt on and place the gown over the top. Youwill need to remove your slacks and underpants. At certain times throughout the test, you may be asked to stand therefore we will ask you to keep your socks and/or shoes on. A small catheter will be inserted into the bladder and a separate catheter will be placed just inside your rectum. Three electrodes will be placed; one on either side of the rectum and one of your inner thigh. We will then attach your catheters to tubing which will transmit information to a computer. We will slowly start filling your bladder with normal saline. You will need to let us know what sensations you are having while your bladder is filling up. If you have a history of urinary incontinence, we will also be testing to see if we can reproduce that during the procedure. At the end of the procedure, we will have you empty your bladder. When the test has been completed, the doctor will go over the results with you. If you have any questions, or if you need to reschedule you appointment, please call [phone] Urodynamics Discharge Instructions You have just completed Urodynamics testing. Here are some instructions to follow: 1. Drink 8-10 glasses of fluid over the next 2 days. Water is the best. This will help to prevent aurinary tract infection and soothe any irritation. 2. You may have a little irritation when you empty your bladder over the next 24 hours. This is normal. 3. You may pass a few drops of blood when you empty your bladder. This is normal. 4. Please notify our office ([phone]) if you experience ??? Persistent irritable voiding after the first 24 hours ??? A large amount of bleeding or clots in your urine ??? Fever greater than 101?? documented in this encounter Progress Notes * Chelsi Rivera MD - 02/25/2021 0915 EDT [facility] FEMALE EXAMINATION Patient: Martha Benoit is an 55 y.o. female seen for consultation at the request of Ruth Munoz APRN for New Patient Visit. Today's visit was provided through telemedicine audio-visual conferencing: Consent: The concept of telemedicine?? has been described to the patient. Patient has been informed of theanticipated benefits and possible risks. Patient understands the information provided regarding telemedicine, has had the opportunity to ask questions about this information, and all questions have been answered to patient's satisfaction. Patient consents for the use of telemedicine in his/her medical care and authorizes the transmission of any relevant medical information to providers and their staff involved in patient's medical or mental health care. The location of the patient : Home The location of the provider: Office The following people (and their respective roles) participated in today's encounter: Martha Benoit, patient and Chelsi Rivera MD, provider The audio-video application used to conduct the visit was [employer]. HPI 55 yo P4 with sudden change in urinary stream in October 2020. Pt noted diminished stream, no vaginal prolapse symptoms. Pt is concerned this may be related to her worsening undiagnosed Neurologic disease. 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 Pt states she was exposed to toxic sprays when playing in the orange [employer] as a child. As a teen, she noticed she couldn't keep up with other children her age when walking/running. Had significant weakness. 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 Pt now requires use of a walker for the past 3 yrs. ROS Pelvic pain: No Dyspareunia: No Recurrent UTI: No Hematuria: No A review of the patient's medical, social, and family history along with medications and allergies was performed. OB History 4 Para 4 Term AB Living 4 SAB TAB Ectopic Multiple Live Births Past Medical History: Diagnosis Date ??? Unspecified cerebral artery occlusion with cerebral infarction Past Surgical History: Procedure Laterality Date ??? CERVIX LESION DESTRUCTION 07/15/2009 ??? GASTRIC BYPASS SURGERY 01/04/16 ??? LEEP 07/15/2009 ??? TUBAL LIGATION Family History Problem Relation Age of Onset ??? Colon Cancer Father ??? Diabetes Father ??? Stroke Father ??? Cervical Cancer Sister ??? Diabetes Sister ??? Heart Disease Sister DC at age 42 = ??? Diabetes Mother ??? Diabetes Brother ??? Diabetes Maternal Aunt ??? Diabetes Maternal Uncle Social History Socioeconomic History ??? Marital status: Spouse name: Not on file ??? Number of children: Not on file ??? Years of education: Not on file ??? Highest education level: Not on file Occupational History ??? Not on file Social Needs ??? Financial resource strain: Not on file ??? Food insecurity Worry: Not on file Inability: Not on file ??? Transportation needs Medical: Not on file Non-medical: Not on file Tobacco Use ??? Smoking status: Never Smoker ??? Smokeless tobacco: Never Used Substance and Sexual Activity ??? Alcohol use: No ??? Drug use: Not on file ??? Sexual activity: Not Currently Lifestyle ??? Physical activity Days per week: Not on file Minutes per session: Not on file ??? Stress: Not on file Relationships ??? Social connections Talks on phone: Not on file Gets together: Not on file Attends cheondoism service: Not on file Active member of club or organization: Not on file Attends meetings of clubs or organizations: Not on file Relationship status: Not on file ??? Intimate partner violence Fear of current or ex partner: Not on file Emotionally abused: Not on file Physically abused: Not on file Forced sexual activity: Not on file Other Topics Concern ??? Not on file Social History Narrative ??? Not on file Current Outpatient Medications Medication ??? adalimumab (HUMIRA,CF, SUBQ) ??? baclofen (LIORESAL) 10 mg tablet ??? canagliflozin (INVOKANA) 300 mg tablet ??? ciclopirox (PENLAC) 8 % solution ??? ergocalciferol (VITAMIN D) 50,000 unit capsule [...] medications for this visit. No Known Allergies A 15 point Review of Systems was performed. Positives related to the patient???s complaint are listed below; all others are either negative or documented in the patient???s scanned Review of Systems. PELVIC EXAM NOT DONE: ZOOM No prolapse mentioned on recent exams with [facility] providers. Vitals There were no vitals taken for this visit. General Physical Exam Constitutional/General: Oriented to person, place, and time. Appears well- developed and well-nourished. HEENT: Head: normocephalic and atraumatic Eyes: conjunctivae and EOM normal Nose: nose normal Throat/mouth: oropharynx clear and moist Neck: normal range of motion Pulmonary: effort normal Abdomen: not assessed Musculoskeletal: normal range of motion Skin: warm and dry Neuro/Psych: alert and oriented to person, place, and time Labs Assessment Martha Benoit is a 55 y.o., female with worsening urinary dysfunction and h/o progressive neurologic disease. Pt advised to contact her Neurologist at [facility] of new symptoms. Plan F/U for exam and Video urodynamic testing with Dr. Kaplan. Pt agrees to testing and with plan. Will bring notes from most recent Neurology visits I spent a total of 35 minutes on the date of this encounter meeting with the patient and reviewing documentation/coordinating care as described in the above note. Chelsi Rivera MD documented in this encounter Plan of Treatment Upcoming Encounters Date Type Department Care Team (Late st Contact Info) Description 05/22/2024 10:00 EDT Office Visit [facility] Foot & Ankle Program - [address] [place] [address] Edwige Keller, DPLilibeth [address] [place] [phone] 07/18/2024 13:00 EDT Procedure visit [facility] Women's Services - [facility] [address], [place] [id number] Jessica Murray NP [address] [facility], [address] [place] [phone] documented as of this encounter Visit Diagnoses Diagnosis History of urinary hesitancy- Primary documented in this encounter Care Teams Head Operator Sulfide Relationship Specialty Start Date End Date Ruth Munoz APRN [address] [place] [phone] PCP - General 04/26/19 06/19/23 documented as of this encounter
--- OUTSIDE RECORDS SUMMARY | 2024-05-15 11:01 | XMS_ITS | Encounter Summary ---
Author Organization [facility] Address [address] [place] [address] Care Team Providers Care Poultryman Name Role Phone Ruth Munoz Lilibeth JUAREZ Primary Care Provider + Reason for Visit * Reason Comments Procedure Encounter Details Date Type Department Care Team (Latest Contact Info) Description 07/14/2021 10:45 EDT Procedure visit [facility] Women's Services - [facility] [address] [place] [address] Lola Vargas MD 2 [facility] Medical Office Building, [address] [place] [address] Rectocele (Primary Dx); Cystocele, midline; Routine Papanicolaou smear; Cervical 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 Social History Tobacco Use Types Packs/Day Years [...] as of this encounter Progress Notes * Lola Vargas MD - 07/14/2021 1045 EDT Images from the original note were not included. Colposcopy Procedure: pt with a long hx of abnormal pap and +HPV. Here for a pap and colpo. Also complaining of pressure and bulge with BM's. Cytology and pathology history: 06/2009, LEEP - AIDEN I - neg [...] vag estrogen week prior to colpos 05/23/19 NIL + HR HPV and + HR type 18/45; neg HR type 16. 07/23/19 colpo with cervical bx, ECC, and right vaginal wall biopsy 04/2020 NIL, HPV pos OB history: Significant medical history: lower extremity neuropathy Current contraception: NA Menopausal status: PM, she did not use the preprocedure estrogen. Prior hysterectomy: na Smoking history: nonsmoker HIV: na Received Gardisil: no Before sexual activity: Procedure: Consent obtained. colposcopy of the cervix and upper vagina was performed with acetic acid and lugol's solution. Findings/biopsies noted below. Cervix: Entire cervix seen? yes Entire SCJ seen? no AW lesions? no Lugol's negative lesions? no ECC done only Vagina: AW lesions? no Lugol's negative lesions? no Vulva: nl 1/ spec exam reveals a grade 3 cystocele and grade 3 rectocele with valsalva. Mild uterine prolapse. A: hx of abnormal paps and HPV + Now with cystocele/rectocele. P: she is trying not to strain with stools to see if that helps. But she would like to proceed witha referral to urogyn so will send that. Will check her pap and ECC and notify of the results and further recs. Addendum 07/23: PC to pt. Reviewed pap nl, HPV 18/45 positive. ECC with only scant squamous atypia. I rec pap/hpv in one yr. Since she has a [address], she would like the pap and colpo scheduled on the same day as she did this time. Will PSS to call and get her scheduled. Pt would benefitfrom preprocedure estrogen. documented in this encounter Plan of Treatment Upcoming Encounters Date Type Department Care Team (Late st Contact Info) Description 05/22/2024 10:00 EDT Office Visit [facility] Foot & Ankle Program - [address] [place] [address] Edwige Keller DPM [address] [place] [phone] 07/18/2024 13:00 EDT Procedure visit [facility] Women's Services - [facility] [address] [place], [place] [phone] Jessica Murray NP 111 [facility], [address] [place] [phone] documented as of this encounter Procedures Procedure Name Priority Date/Time Associated Diagnosis Comments PAP TEST Routine 07/14/2021 12:08 EDT Routine Papanicolaou smear SURGICAL PATHOLOGY Routine 07/14/2021 12 :08 EDT Cervical 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 HPV GENOTYPES 16 AND 18/45 Today 07/14/2021 12:08 EDT Routine Papanicolaou smear HPV DNA DETECTION WITH GENOTYPING, PCR Today 07/14/2021 12:08 EDT Routine Papanicolaou smear documented in this encounter Results * (ABNORMAL) HPV GENOTYPES 16 AND 18/45 (07/14/2021 12:08 EDT) HPV High Risk type 16, PCR Negative Negative 07/22/2021 15:26 EDT [facility] HPV18/45 RNA (HPV18/45) Positive(A) Negative 07/22/2021 15:26 EDT [facility] Papanicolaou smear specimen (specimen) CERVIX UTERI STRUCTURE / Unknown 07/14/2021 12:08 EDT 07/16/2021 13:23 EDT Lola Vargas MD [place] Self Representation Document Preparation ORDERABLES [facility] [address] [place] [id number] * (ABNORMAL) HUMAN PAPILLOMAVIRUS (HPV) DETECTION-HIGH RISK TYPES (07/14/2021 12:08 EDT) HPV other High Risk types, PCR Positive( A) Negative 07/22/2021 15:26 EDT [facility] Comment:E6 OR E7 mRNA from o ne or more types of HPV types 16,18,31,33,35,39,45,51,52,56,58,59,66, and 68 is detected by social security benefits interviewer mediated amplification. High and intermediate risk HPV types are associated with most squamous intraepithelial lesions and cervical cancers. Papanicolaou smear specimen (specimen) CERVIX UTERI STRUCTURE / Unknown 07/14/2021 12:08 EDT 07/16/2021 13:23 EDT Lola Vargas MD [place] Self Representation Document Preparation ORDERABLES [facility] [address] [place] [address] * SURGICAL PATHOLOGY (07/14/2021 12:08 EDT) Note to Patient The following pathology results have been interpreted by your pathologist and may be available to you before your health provider has had the opportunity to review them. Please allow time for your provider to receive these results and explore management options, if applicable. 07/16/2021 13:58 EDT [facility] Final Diagnosis A. ENDOCERVIX, CURETTAGE: - Minute detached fragment of squamous epithelium with atypia. See comment. 07/16/2021 13:58 T [facility] Diagnosis Comment The detached fragment is quite small and seen only on the first level. It exhibits a rare cell with koilocytic atypia, and thus a squamous intraepithelial lesion cannot be absolutely excluded. 07/16/2021 13:58 [facility] Attestation There was significant resident/fellow involvement in the diagnostic evaluation of this case. By the signature below, the attending physician certifies that they have personally conducted a gross and/or microscopic examination of the described specimens and rendered or confirmed the above diagnosis. 07/16/2021 13:58 [facility] at 1358 Clinical History HPV positive last yr, Pap done along with this ECC; clinical diagnosis code: D87.810 07/16/2021 13:58 [facility] Gross Description A. Received in formalin labelled with proper patient identification (initials P, J) and ECC is an aggregate of russell blood-tinged mucin (0.7 x 0.5 x 0.2 cm). The specimen is submitted in A1. BERE MENDOZA(ASCP) 07/14/2021 14:50 07/16/2021 13:58 [facility] Resident/Jaison w: Jose Venegas MD 07/16/2021 13:58 [facility] Performing Lab [facility] 13:58 T [facility] Scanned Images 07/16/2021 13:58 EDT [facility] Tissue ENTIRE ENDOCERVIX / Unknown Collection, Other / Unknown 07/14/2021 12:08 EDT 07/14/2021 14:37 EDT Lola Vargas MD PATHOLOGY ORDERABLE S [facility] [address] [place] [address] * PAP TEST (07/14/2021 12:08 EDT) Specimens A. Cervix and/or Endocervix , ThinPrep Imaging System with Manual Evaluation 07/22/2021 15:26 T [facility] Specimen Adequacy Satisfactory for Evaluation - assessment of transformation zone component not applicable ( e.g. atrophy, vaginal sample, hysterectomy) 07/22/2021 15:26 [facility] General Categorization Negative for intraepithelial lesion or malignancy 07/22/2021 15:26 T [facility] Attestation . 07/22/2021 15:26 T [facility] at 1525 Clinical History one yr f/u pap after HPV positive. long hx of abnormal paps 07/22/2021 15:26 EDT [facility] HPV The result for the Human Papillomavirus (HPV) Detection-High Risk Types is Positive . E6 OR E7 mRNA from one or more types of HPV types 16,18,31,33,35,39 ,45,51,52,56,58,5 9,66, and 68 is detected by social security benefits interviewer mediated amplification. High and intermediate risk HPV types are associated with most squamous intraepithelial lesions and cervical cancers. Testing was performed on specimen [id number] and was resulted on 07/19/2021 1617 EDT by GODFREY, LAB INSTRUMENT RESULTS IN 07/22/2021 15:26 EDT [facility] Genotyping 16 & 18/45 The results for the HPV Genotypes 16 and 18/45 are Negative for the HPV16 RNA and Positive for the HPV18/45 RNA (HPV18/45) . Testing was performed on specimen [id number] and was resulted on 07/22/2021 1341 EDT by GODFREY, LAB INSTRUMENT RESULTS IN 07/22/2021 15:26 EDT [facility] Performing Lab [facility] 07/22/2021 15:26 EDT [facility] Scanned Images 07/22/2021 15:26 EDT [facility] Papanicolaou smear specimen (specimen) CERVIX UTERI STRUCTURE / Unknown 07/14/2021 12:08 EDT 07/14/2021 14:32 EDT Lola Vargas MD PATHOLOGY ORDERABLE S [facility] [address] [place] [address] documented in this encounter Visit Diagnoses Diagnosis Rectocele- Primary Cystocele, midline Routine Papanicolaou smear Screening for malignant neoplasm of the cervix Cervical 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 documented in this encounter Care Teams Poultryman Relationship Specialty Start Date End Date Ruth Munoz, IS/IT PROJECT MANAGER [address] [place] [phone] PCP - General 04/26/19 06/19/23 documented as of this encounter
--- OUTSIDE RECORDS SUMMARY | 2024-05-15 11:01 | XMS_ITS | Encounter Summary ---
Author Organization [facility] Address [address] [place] [address] Care Team Providers Care Warehouse Receiver Name Role Phone Ruth Munoz ENVIRONMENTAL CONSERVATION OFFICER Primary Care Provider + Reason for Visit * Reason Comments New Patient Visit otalgia * Referral (Routine) - Receiving Office to Obtain Authorization Specialty Diagnoses / Procedures Referred By Patricio monsivais Referred To Contact Otolaryngology Diagnoses Otalgia, left ear Ruth Munoz, ENVIRONMENTAL CONSERVATION OFFICER [address] [place] [address] [facility] [address] [place] [address] Referral ID Status Reason Start Date Expiration Date Visits Requested Visits Authorized [id number] Receiving Office to Obtain Authorization 1 1 Encounter Details Date Type Department Care Team (Late st Contact Info) Description 05/04/2021 10:30 EDT Office Visit [facility] ENT [address] [place] [address] [place] [address] [place] [address] Otalgia, left ear (Primary Dx); Myofascial muscle pain Social History Tobacco Use Types Packs/Day Years [...] Pressure - - Pulse - - Temperature 36.2 ??C (97.1 ??F) 05/04/2021 1015 EDT Respiratory Rate - - Oxygen Saturation - [...] Take 1 Tablet by mouth at bedtime. 30 Tablet 2 05/04/2021 08/16/2021 documented in this encounter Progress Notes * Joey Aguirre MD - 05/04/2021 1030 EDT Subjective: Patient ID: Martha Benoit is an 55 y.o. female. Chief Complaint Patient presents with ??? New Patient Visit otalgia She has been bothered by left-sided ear and head pain for approximately [address] Vazquez last summer with a 1 year history of left-sided pain. At that point they did an MRI scan which was normal. She did have some mild asymmetric sensorineural hearing loss, but there was no evidence of vestibular schwannoma. The pain keeps her from sleeping on her right side as it hurts her left ear, and sometimes she feels fluid draining from the ear Patient Active Problem List Diagnosis ??? Mild dysplasia of cervix (AIDEN I) ??? Morbid obesity (HCC-CMS) ??? Vitamin D deficiency ??? Diabetes mellitus ([facility]) Past Medical History: Diagnosis Date ??? Unspecified [...] Maternal Aunt ??? Diabetes Maternal Uncle Social Social History Socioeconomic History ??? Marital status: Spouse name: Not on file ??? Number of children: Not on file ??? Years of education: Not on file ??? Highest education level: Not on file Occupational History ??? Not on file Tobacco Use ??? Smoking status: Never Smoker ??? Smokeless tobacco: Never Used Substance and Sexual Activity ??? Alcohol use: No ??? Drug use: Not on file ??? Sexual activity: Not Currently Other Topics Concern ??? Not on file Social History Narrative ??? Not on file Social Determinants of Health Financial Resource Strain: ??? Difficulty of Paying Living Expenses: Food Insecurity: ??? Worried About Running Out of Food in the Last Year: ??? Ran Out of Food in the Last Year: Transportation Needs: ??? Lack of Transportation (Medical): ??? Lack of Transportation (Non-Medical): Physical Activity: ??? Days of Exercise per Week: ??? Minutes of Exercise per Session: Stress: ??? Feeling of Stress : Social Connections: ??? Frequency of Communication with Friends and Family: ??? Frequency of Social Gatherings with Friends and Family: ??? Attends [employer] Services: ??? Active Member of Clubs or Organizations: ??? Attends Club or Organization Meetings: ??? Marital Status: Outpatient Medications Marked as Taking for the 05/04/21 encounter (Office Visit) with Joey Aguirre MD Medication Sig Dispense Refill ??? adalimumab (HUMIRA,CF, SUBQ) Inject into the skin. ??? baclofen (LIORESAL) 10 mg tablet Take 10 mg by mouth 4 times daily. ??? canagliflozin (INVOKANA) 300 mg tablet Take 300 mg by mouth daily. ??? ciclopirox (PENLAC) 8 % solution Apply to affected nails daily as instructed 1 Bottle 1 ??? ergocalciferol (VITAMIN D) 50,000 unit capsule Take 50,000 Units by mouth once a week. ??? fluconazole (DIFLUCAN) 150 mg tablet Take 1 Tab by mouth every 72 hours. 2 Tab 0 ??? folic acid (FOLVITE) 1 mg tablet Take 1 mg by mouth daily. Reported on 03/13/2017 ??? furosemide (LASIX) 40 mg tablet Take 40 mg by mouth daily. Reported on 03/13/2017 ??? gabapentin (NEURONTIN) 300 mg capsule Take 600 mg by mouth at bedtime. ??? glipiZIDE (GLUCOTROL) 10 mg tablet Take 10 mg by mouth 2 times daily. ??? insulin lispro (HUMALOG) 100 unit/mL injection Inject 15 Units into the skin 2 times daily. ??? lidocaine 5 % (LIDODERM) 5 % patch Place 1 Patch onto the skin daily. ??? metformin (GLUCOPHAGE) 500 mg tablet Take 500 mg by mouth 3 times daily before meals. ??? Miscellaneous Medication - See Admin Instructions Boric acid caps 600 mg each. Sig: insert vaginally HS twice weekly 80 Each 0 ??? Miscellaneous Medication - See Admin Instructions Boric acid capsules [address] one capsulevaginally HS x 14 days. Call patient when ready. 14 Each 0 ??? nitroglycerin (RECTIV) 0.4 % (w/w) ointment Apply 1 application topically as needed. ??? nystatin (MYCOSTATIN) powder APPLY EXTERNALLY THREE TIMES A DAY ??? omeprazole (PRILOSEC) 20 mg capsule Take 20 mg by mouth daily. ??? oxyCODONE-acetaminophen (PERCOCET) 10-325 mg per tablet Take 1 Tab by mouth every 4 hours as needed for Pain. Takes 5 tabs daily ??? pediatric multivitamin no.76 tablet,chewable Take 1 Tab by mouth. ??? triamcinolone (KENALOG) 0.1 % ointment APPLY TOPICALLY TO ARMS LEGS AND ABDOMEN TWO TIMES A DAYAS NEEDED No Known Allergies Review of Systems Constitutional: Negative. HENT: Positive for ear pain and hearing loss. Eyes: Negative. Respiratory: Negative. Cardiovascular: Negative. Skin: Negative. - See HPI Objective: Temp 36.2 ??C (97.1 ??F) (Temporal) Physical Exam Constitutional: Appearance: She is well-developed and well-nourished. HENT: Right Ear: Tympanic membrane normal. Left Ear: Tympanic membrane normal. Nose: No nasal discharge. Mouth/Throat: Mouth: Mucous membranes are moist. Dentition: Normal. Pharynx: Oropharynx is clear. Normal. Tonsils: No tonsillar exudate. Eyes: Extraocular Movements: EOM normal. Neck: Thyroid: No thyromegaly. Pulmonary: Effort: Pulmonary effort is normal. No respiratory distress. Breath sounds: No stridor. Musculoskeletal: General: Normal range of motion. Cervical back: Normal range of motion and neck supple. Lymphadenopathy: Cervical: No cervical adenopathy. Skin: General: Skin is warm and dry. Findings: No ecchymosis, erythema or rash. Neurological: Mental Status: She is alert. Psychiatric: Mood and Affect: Mood and affect normal. Behavior: Behavior normal. Thought Content: Thought content normal. Judgment: Judgment normal. Assessment: Her exam today is very normal. There is no evidence of an oropharyngeal mass or malignancy. Her teeth look reasonably normal, the ear looks very normal. Audiometry is the same as it was a year ago. Her tympanogram is perfect. The only abnormal finding is tenderness around the left jaw joint. I suspect this may be a TMJ issue. She has a tremendous amount of stress in her life right now, as well aspain issues in other joints. Initially we will add a different muscle relaxer in the evenings, and try some behavioral modification. Plan: Martha was seen today for new patient visit. Diagnoses and all orders for this visit: Otalgia, left ear Myofascial muscle pain documented in this encounter Plan of Treatment Upcoming Encounters Date Type Department Care Team (Late st Contact Info) Description 05/22/2024 10:00 EDT Office Visit [facility] Foot & Ankle Program - [address] [place], [place] [id number] Stone, Edwige M, DPM [address] [place] [address] 07/18/2024 13:00 EDT Procedure visit [facility] Women's Services - [facility] [address] [place], [place] [phone] Jessica Murray NP 111 [facility], [facility], [address] [place] [address] documented as of this encounter Visit Diagnoses Diagnosis Otalgia, left ear- Primary Myofascial muscle pain Mylagia and myositis, unspecified documented in this encounter Care Teams Warehouse Receiver Relationship Specialty Start Date End Date Ruth Munoz, LARRY [address] [place] [phone] PCP - General 04/26/19 06/19/23 documented as of this encounter
--- OUTSIDE RECORDS SUMMARY | 2024-05-15 11:01 | XMS_ITS | Encounter Summary ---
Author Organization [facility] Address [address] [place] [address] Care Team Providers Care Tube Turner Name Role Phone Ruth Munoz APRN Primary Care Provider + Katia Haywood Primary Care Provider [phone] Reason for Visit * Reason Onset Date Comments Update 05/18/2021 Encounter Details Date Type Department Care Team (Late st Contact Info) Description 05/18/2021 Telephone [facility] ENT [address] [place] [address] [place] [address] [facility] [place] [address] Update Social History Tobacco Use Types Packs/Day Years [...] encounter Miscellaneous Notes * Telephone Encounter - Irene Ko LPN - 05/19/2021 1229 EDT Please advise * Telephone Encounter - Mallory Gardner - 05/18/2021 1541 EDT The patient called and stated that the Rx is helping with pain during the night but during the day it doesn't seem to help as the pain is still there. Please advise. Call back # [phone] The patient to relay she has a televideo appointment tomorrow with neurology documented in this encounter Plan of Treatment Upcoming Encounters Date Type Department Care Team (Late st Contact Info) Description 05/22/2024 10:00 EDT Office Visit [facility] Foot & Ankle Program - [address] [address] Edwige Keller DPM [address] [place] [phone] 07/18/2024 13:00 EDT Procedure visit [facility] Women's Services - [facility] [address] [place], [place] [phone] Jessica Murray NP 111 [facility], [facility], [address] [place] [address] documented as of this encounter Visit Diagnoses Not on filedocumented in this encounter Care Teams Tube Turner Relationship Specialty Start Date End Date Ruth Munoz APRN [address] [place] [address] PCP - General 04/26/19 06/19/23 Katia Haywood [address] [place] [place] [phone] PCP - General Family Medicine - Primary Care 06/20/23 documented as of this encounter
--- OUTSIDE RECORDS SUMMARY | 2024-05-15 11:01 | XMS_ITS | Encounter Summary ---
Author Organization [facility] Address [address] [place] [address] Care Team Providers Care Wood Getter Name Role Phone MunozRuth jerome Lilibeth JUAREZ Primary Care Provider + Reason for Visit * Reason Onset Date Comments Advice Only 08/12/2020 Encounter Details Date Type Department Care Team (Late st Contact Info) Description 08/12/2020 Telephone [facility] Women's Services - [facility] [address] [place], [place] [address] Cici Barker NP 111 [facility], [address] [place] [address] Advice Only Social History Tobacco Use Types Packs/Day Years [...] Dispensed Refills Start Date End Da te Miscellaneous Medication - See Admin Instructions Boric acid caps 600 mg each. Sig: insert vaginally HS twice weekly 80 Each 08/12/2020 01/08/2024 fluconazole (DIFLUCAN) 150 mg tablet Take 1 Tab by mouth every 72 hours. 2 Tab 08/12/2020 01/08/2024 documented in this encounter Miscellaneous Notes * Telephone Encounter - Cathy Cook RN - 08/12/2020 1618 EDT Spoke with Martha: advised as per Cici Barker below, emphasized caution about narcotic & fluconazole---> patient said she has taken this in the past without problem. * Telephone Encounter - Cici Barker APRN - 08/12/2020 1558 EDT Med Orders Placed This Visit and Additions to the Medication List Medications ??? fluconazole (DIFLUCAN) 150 mg tablet Sig: Take 1 Tab by mouth every 72 hours. Dispense: 2 Tab Refill: 0 ??? Miscellaneous Medication - See Admin Instructions Sig: Boric acid caps 600 mg each. Sig: insert vaginally HS twice weekly Dispense: 80 Each Refill: 0 the fluconazole went to [id number], the b[place] acid went [facility] [place] [facility]. Fluconazole can exacerbated the effect of her narcotic and cause respiratory depression. Take with extreme caution. * Telephone Encounter - Edwige Mendoza - 08/12/2020 0842 EDT Patient stopped taking boric acid because they felt their symptoms have resolved, but they have nowcome back. Patient was also wondering if they could have a fluconazole prescription. Patient pharmacy is [place], [place] - [address] [facility] Patient can be reached at [phone] documented in this encounter Plan of Treatment Upcoming Encounters Date Type Department Care Team (Late st Contact Info) Description 05/22/2024 10:00 EDT Office Visit [facility] Foot & Ankle Program - [facility] [address] [facility] [place] [address] Edwige Keller, CLAUS [address] [place] [address] 07/18/2024 13:00 EDT Procedure visit [facility] Women's Services - [address] [id number] Jessica Murray NP 111 [facility], [address] [place] [address] documented as of this encounter Visit Diagnoses Not on filedocumented in this encounter Discontinued Medications Medication Sig Discontinue Reason Start Date End Da te Miscellaneous Medication - See Admin Instructions Boric acid caps 600 mg each. Sig: insert vaginally HS twice weekly after 14 day treatment. Reorder 01/20/2020 08/12/2020 documented as of this encounter Care Teams Wood Getter Relationship Specialty Start Date End Date Ruth Munoz APRN [address] [place] [phone] PCP - General 04/26/19 06/19/23 documented as of this encounter
--- OUTSIDE RECORDS SUMMARY | 2024-05-15 11:01 | XMS_ITS | Encounter Summary ---
Author Organization [facility] Address [address] [place] [address] Care Team Providers Care Milk Condenser Name Role Phone Ruth Munoz APRN Primary Care Provider + Katia Haywood Primary Care Provider [phone] Encounter Details Date Type Department Care Team (Late st Contact Info) Description 07/15/2022 Lab Requisition [facility] Pathology & Laboratory Medicine - [facility] [address] [place] [address] Jonah Bowers, DO [address], [place] Encounter for other general examination Social History Tobacco Use Types Packs/Day Years Used Date Smoking Tobacco: Never Assessed Interpersonal Safety Answer Date Record ed Physically [...] 05/22/2024 10:00 EDT Office Visit [facility] Foot & Ankle Program - [facility] [address] [facility] [place] [address] Edwige Keller, DPM [address] [facility] [place] [address] 07/18/2024 13:00 EDT Procedure visit [facility] Women's Services - [facility] [address] [place] [address] Jessica Murray NP 111 [facility], [address] [place] [address] documented as of this encounter Procedures Procedure Name Priority Date/Time Associated Diagnosis Comments SURGICAL PATHOLOGY Today 07/15/2022 8:47 EDT documented in this encounter Results * SURGICAL PATHOLOGY (07/15/2022 8:47 EDT) Note to Patient The following pathology results have been interpreted by your pathologist and may be available to you before your health provider has had the opportunity to review them. Please allow time for your provider to receive these results and explore management options, if applicable. 07/19/2022 17:10 EDT [facility] Final Diagnosis A. COLON, ASCENDING, POLYP, BIOPSY: - Benign inflammatory polyp. 07/19/2022 17:10 EDT [facility] Attestation By the signature below, the attending physician certifies that they have 1) personally conducted a gross and/or microscopic examination of the described specimen(s), and/or personally interpreted the results of laboratory testing of the described specimen(s), and 2) personally rendered or confirmed the above diagnosis. 07/19/2022 17:10 EDT [facility] at 1710 Clinical History Family H/O colon cancer, colon polyp, internal hemorrhoids 07/19/2022 17:10 EDT [facility] Gross Description A. Received in formalin labelled with proper patient identification (initials (P, J) and ascending colon polyp is a single russell polypoid tissue (0.8 x 0.5 x 0.2 cm). The specimen is bisected and entirely submitted in A1. [facility] 07/18/2022 5:29 07/19/2022 17:10 EDT [facility] Performing Lab [facility] 07/19/2022 17:10 EDT [facility] Scanned Images 07/19/2022 17:10 EDT [facility] Tissue ASCENDING COLON STRUCTURE / Unknown 07/15/2022 8:47 EDT 07/16/2022 7:02 EDT Jonah Bowers DO PATHOLOGY ORDERABLES Performing Organization Address City/State/[facility] Co de Phone Number [facility] [address] [place] [address] documented in this encounter Visit Diagnoses Diagnosis Encounter for other general examination documented in this encounter Care Teams Milk Condenser Relationship Specialty Start Date End Date Ruth Munoz APRN [address] [place] [phone] PCP - General 04/26/19 06/19/23 Katia Haywood [address] [facility] [place] [phone] PCP - General Family Medicine - Primary Care 06/20/23 documented as of this encounter
--- OUTSIDE RECORDS SUMMARY | 2024-05-15 11:01 | XMS_ITS | Encounter Summary ---
Author Organization [facility] Address [address] [place] [address] Care Team Providers Care Solar Design Engineer Name Role Phone MunozAidanantony Mcelroy APRN Primary Care Provider + Reason for Visit * Reason Onset Date Comments Appointment Related 03/28/2022 Encounter Details Date Type Department Care Team (Late st Contact Info) Description 03/28/2022 Telephone [facility] Women's Services - [facility] [address] [place], [place] [address] Katy Lubin MD [address] [place] [address], [facility] [address] [place] [address] Appointment Related Social History Tobacco Use Types [...] (ESTRACE) 0.01 % (0.1 mg/gram) vaginal cream Insert 1 gram vaginally 3 times weekly for 3 weeks. Stop 3 days prior to colposcopy. Start:05/30/22 End:06/20/22 42.5 g 03/28/2022 03/15/2023 documented in this encounter Miscellaneous Notes * Telephone Encounter - Pat Moy - 03/28/2022 1418 EDT Called pt to schedule Colpo (per tickler due in June). Patient is scheduled with Dr. Lubin 06/23/22, does she need to start Estrogen 3 weeks before? documented in this encounter Plan of Treatment Upcoming Encounters Date Type Department Care Team (Late st Contact Info) Description 05/22/2024 10:00 EDT Office Visit [facility] Foot & Ankle Program - [address] [place] [address] Edwige Keller DPM [address] [place] [phone] 07/18/2024 13:00 EDT Procedure visit [facility] Women's Services - [facility] [address] [place], [place] [address] Jessica Murray NP 111 [facility], [facility], [address] [place] [address] documented as of this encounter Visit Diagnoses Not on filedocumented in this encounter Discontinued Medications Medication Sig Discontinue Reason Start Date End Da te estradiol (ESTRACE) 0.01 % (0.1 mg/gram) vaginal cream Place 1 g vaginally three times a week for 21 days. Do not use for 2 days prior to your colposcopy Reorder 06/21/2019 03/28/2022 documented as of this encounter Care Teams Solar Design Engineer Relationship Specialty Start Date End Date Ruth Munoz, LARRY [address] [place] [address] PCP - General 04/26/19 06/19/23 documented as of this encounter
--- OUTSIDE RECORDS SUMMARY | 2024-05-15 11:01 | XMS_ITS | Encounter Summary ---
Author Organization [facility] Address [address] [place] [address] Care Team Providers Care Lisw Name Role Phone MunozRuth jerome Lilibeth JUAREZ Primary Care Provider + Reason for Visit * Reason Comments Follow-up Encounter Details Date Type Department Care Team (Latest Contact Info) Description 06/14/2023 9:30 EDT Office Visit [facility] Pelvic Medicine and Reconstructive Surgery - Medical Office Building [address] [phone] Chelsi Rivera MD [address] [place] [address] Medical Office [facility], [address] [address] Other female genital prolapse (Primary [...] as of this encounter Progress Notes * Saadia Diana MA - 06/14/[address] Rivera saw patient earlier today but patient had additional question about the likelihood of incontinence after surgery. Told patient per Dr. Rivera that it would be unlikely but that since patient doesn't have a normal bladder she wouldn't be able to guarantee anything. Also relayed to patient that she had the UDS testing done [place] [address] Kaplan to help answer that question. Patient understood there is no guarantee. * Chelsi Rivera MD - 06/14/2023 0930 EDT Pt here today for initial visit with Dr. Whitley and for consult with PFPT. Per Dr. Whitley, she would be willing to proceed with posterior repair. (Please see note for details). Pt wants to proceed with surgical repair of cystocele at same time. Doubts PT will help. Explained to patient(as did Dr. Whitley), the importance of PT in preventing worsening of prolapse and pelvic floor function. Pt had Video Urodynamics with Dr. Kaplan 04/08/21(notes reviewed). No incontinence seen, blunted flow pattern, normal capacity 550cc, PVR 0cc. Pt returned to clinic following evaluation with PT. Wants to know if surgery will create incontinence( see note from Jitendra Diana MA). Will schedule repair per pt request. documented in this encounter Plan of Treatment Upcoming Encounters Date Type Department Care Team (Late st Contact Info) Description 05/22/2024 10:00 EDT Office Visit [facility] Foot & Ankle Program - [address] [place] [address] dEwige Keller DPM [address] [place], [place] [phone] 07/18/2024 13:00 EDT Procedure visit [facility] Women's Services - [facility] [address] [place], [place] [phone] Jessica Murray, POLO 111 [facility], [facility], [address] [place] [phone] documented as of this encounter Visit Diagnoses Diagnosis Other female genital prolapse- Primary documented in this encounter Care Teams Lisw Relationship Specialty Start Date End Date Ruth Munoz APRN [address] [place] [phone] PCP - General 04/26/19 06/19/23 documented as of this encounter
--- OUTSIDE RECORDS SUMMARY | 2024-05-15 11:01 | XMS_ITS | Encounter Summary ---
Author Organization [facility] Address [address] [place] [address] Care Team Providers Care Material Yard Clerk Name Role Phone MunozRuth jerome Lilibeth JUAREZ Primary Care Provider + Reason for Visit * Reason Onset Date Comments Pre-visit Orders 03/25/2021 Encounter Details Date Type Department Care Team (Late st Contact Info) Description 03/25/2021 Telephone [facility] Pelvic Medicine and Reconstructive Surgery - Medical Office [facility] [address] [place], [place] [phone] Lucille Montero RN Pre-visit Orders Social History Tobacco Use Types Packs/Day Years [...] encounter Miscellaneous Notes * Telephone Encounter - Lucille Montero RN - 03/30/2021 1521 EDT Patient requesting order to be faxed to [facility] at this time as Merlyn lost her urine specimen when she dropped it off on 03/27/21. Call placed to [facility] and spoke with Lab. They will need order faxed to them. Fax number obtained and orders faxed at this time. Call placed to patient to notify her of that and that lab hours are 730-6 pm Monday-Monday. She will call and set up urine collection. Notified patient to call with any issues. LUCILLE MONTERO RN 03/30/2021 15:31 * Telephone Encounter - Lucille Montero RN - 03/30/2021 1449 EDT Call placed to patient and notified her that [facility] did not have specimen. Patient report she went in 2 days ago and had specimen collected. She is calling them back to see what needs to be done at this time and requested fax number to clinic to have them send results if they are ableto find them. Patient upset with that lab and may call back to have orders sent to different facility. LUCILLE MONTERO RN 03/30/2021 14:53 * Telephone Encounter - Lucille Montero RN - 03/30/2021 0950 EDT Call placed to [facility] lab for U/A results. Patient has not gone in for urine collection. Call placed to patient and no answer. Left message for her to call back. LUCILLE MONTERO RN 03/30/2021 9:53 * Telephone Encounter - Lucille Montero RN - 03/25/2021 1646 EDT Call placed to [facility] lab and confirmed they received patient lab orders from 02/25/21. Call placed to patient and notified her of need for urine collection prior to procedure. Patient did not know she was having a procedure. Explained UDS and how it is collected. All questions answeredat time of call. Patient to reach out to lab to discuss collecting urine sample. The patient indicates understanding of these issues and agrees with the plan. LUCILLE MONTERO RN 03/25/2021 16:52 documented in this encounter Plan of Treatment Upcoming Encounters Date Type Department Care Team (Late st Contact Info) Description 05/22/2024 10:00 EDT Office Visit [facility] Foot & Ankle Program - [address] [address] Edwige Keller DPM [address] [place] [phone] 07/18/2024 13:00 EDT Procedure visit [facility] Women's Services - [facility] [address], [place] [address] Jessica Murray NP 111 [facility], [facility], [address] [place] [address] documented as of this encounter Visit Diagnoses Not on filedocumented in this encounter Care Teams Material Yard Clerk Relationship Specialty Start Date End Date Ruth Munoz APRN [address] [place] [phone] PCP - General 04/26/19 06/19/23 documented as of this encounter
--- OUTSIDE RECORDS SUMMARY | 2024-05-15 11:01 | XMS_ITS | Encounter Summary ---
Author Organization [facility] Address [address] [place] [address] Care Team Providers Care Extension Edger Name Role Phone Ruth Munoz APRN Primary Care Provider + Reason for Visit * Reason Onset Date Comments Appointment Related 03/15/2023 Encounter Details Date Type Department Care Team (Late st Contact Info) Description 03/15/2023 Telephone [facility] Rehabilitation Therapy - Medical Office [address] [address] Therapy, Physical Appointment Related Social History Tobacco Use Types [...] encounter Miscellaneous Notes * Telephone Encounter - Elisa Miles 03/15/2023 1153 EDT [facility] REHABIL[facility]ATION THERAPY - MEDICAL OFFICE [address] [facility] [id number] Telephone Intake Information for Scheduling NEW Patients for Therapy Diagnosis: Cysto/rectocele Machine Tailer needed? No [place] or [place]CO plan - any age REFERRAL REQUIRED. Have you been seen for therapy since October of this year? No, Medicaid will cover 30 totaltherapy visits (PT, OT, and TEXTILE TECHNICAL OFFICER combined) between October and October 22 of this year. Secondary Insurance: None Initial Evaluation Date: 06/14/23 - 10:30 - Margi Wolf, PT Also 06/14/23 - 8:45 - Dr Whitley (30 minute appt) 9:30 - Dr. Rivera (30 minute appt) Elisa Miles 03/15/2023 documented in this encounter Plan of Treatment Upcoming Encounters Date Type Department Care Team (Late st Contact Info) Description 05/22/2024 10:00 EDT Office Visit [facility] Foot & Ankle Program - [address] [place] [address] Edwige Keller DPM [address] [place] [phone] 07/18/2024 13:00 EDT Procedure visit [facility] Women's Services - [facility] [address] [place], [place] [phone] Jessica Murray NP 111 [facility], [facility], [address] [place] [address] documented as of this encounter Visit Diagnoses Not on filedocumented in this encounter Care Teams Extension Edger Relationship Specialty Start Date End Date Ruth Munoz APRN 4 [facility] [place] [place] [address] PCP - General 04/26/19 06/19/23 documented as of this encounter
--- OUTSIDE RECORDS SUMMARY | 2024-05-15 11:01 | XMS_ITS | Encounter Summary ---
Author Organization [facility] Address [address] [place] [address] Care Team Providers Care Improvement Coordinator Name Role Phone Ruth Munoz APRN Primary Care Provider + Reason for Referral * Radiology Services (Routine/Next Available) - Authorization Not Required Specialty Diagnoses / Procedures Referred By Contac t Referred To Contact Diagnoses Right knee pain, unspecified chronicity Procedures XR KNEE LEFT 3 VIEWS Telma Brady NP [address] [place] [address] [facility] Referral ID Status Reason Start Date Expiration Date Visits Requested Visits Authorized [id number] Authorization Not Required 05/02/2023 1 1 * Radiology Services (Routine/Next Available) - Authorization Not Required Specialty Diagnoses / Procedures Referred By Contac t Referred To Contact Diagnoses Right knee pain, unspecified chronicity Procedures XR KNEE RIGHT 4 OR MORE VIEWS Telma Brady, POLO [address] [place] [address] [facility] Referral ID Status Reason Start Date Expiration Date Visits Requested Visits Authorized [id number] Authorization Not Required 05/02/2023 1 1 Reason for Visit * Radiology Services (Routine/Next Available) - Authorization Not Required Specialty Diagnoses / Procedures Referred By Contac t Referred To Contact Diagnoses Right knee pain, unspecified chronicity Procedures XR KNEE LEFT 3 VIEWS Telma Brady, POLO [address] [place] [address] [facility] Referral ID Status Reason Start Date Expiration Date Visits Requested Visits Authorized [id number] Authorization Not Required 05/02/2023 1 1 Encounter Details Date Type Department Care Team (Latest Contact Info) Description 05/04/2023 8:40 EDT - 05/04/2023 23:59 EDT Hospital Encounter [facility] Molina Xray [address] [facility] [place] [address] Right knee pain, unspecified chronicity Discharge Disposition: Home or Self Care Social [...] the skin 3 times daily. Sliding scale lidocaine 5 % (LIDODERM) 5 % patch Place 1 Patch onto the skin daily. metformin (GLUCOPHAGE) 500 mg tablet Take 1 Tablet by mouth 3 times daily before meals. nystatin (MYCOSTATIN) powder 3 times daily as needed. 12/14/2019 omeprazole (PRILOSEC) 20 mg capsule Take 1 Capsule by mouth daily. oxyCODONE-acetaminophe n (PERCOCET) 10-325 mg per tablet Take 1 Tablet by mouth every 4 hours as needed for Pain. Takes 5 tabs daily pediatric multivitamin no.76 tablet,chewable Take 1 Tab by mouth. 02/13/2019 triamcinolone (KENALOG) 0.1 % ointment APPLY TOPICALLY TO ARMS LEGS AND ABDOMEN TWO TIMES A DAY NEEDED 05/01/2018 adalimumab (HUMIRA,CF, SUBQ)Indications:takes every other week not sure of dose Inject into the skin. 2023 estradioL (ESTRACE) 0.01 % (0.1 mg/gram) vaginal cream Place 0.5 g vaginally three times a week. 42 g 11 03/15/2023 04/05/2024 fluconazole (DIFLUCAN) 150 mg tablet Take 1 Tab by mouth every 72 hours. 2 Tab 08/12/2020 01/08/2024 folic acid (FOLVITE) 1 mg tablet Take 1 mg by mouth daily. Reported on 03/13/2017 01/08/2024 Miscellaneous Medication - See Admin Instructions Boric acid caps 600 mg each. Sig: insert vaginally HS twice weekly 80 Each 08/12/2020 01/08/2024 Miscellaneous Medication - See Admin Instructions Boric acid capsules [address] one capsule vaginally HS x 14 days. Call patient when ready. 14 Each 01/20/2020 01/18/2024 nitroglycerin 0.4 % (w/w) ointment Apply 1 application topically as needed. 03/05/2019 01/08/2024 documented as of this encounter Discharge Disposition Disposition Code Departure Means Destination Home or Self Care documented in this encounter Plan of Treatment Upcoming Encounters Date Type Department Care Team (Late st Contact Info) Description 05/22/2024 10:00 EDT Office Visit [facility] Foot & Ankle Program - [address] [place] [address] Edwige Keller DPM [address] [place] [address] 07/18/2024 13:00 EDT Procedure visit [facility] Women's Services - [address] [phone] Jessica Murray NP 111 [facility], [address] [place] [phone] documented as of this encounter Procedures Procedure Name Priority Date/Time Associated Diagnosis Comments XR KNEE RIGHT 4 OR MORE VIEWS Routine 05/04/2023 8:55 EDT Right knee pain, unspecified chronicity XR KNEE LEFT 3 VIEWS Routine 05/04/2023 8:55 EDT Right knee pain, unspecified chronicity documented in this encounter Results * XR KNEE LEFT 3 VIEWS (05/04/2023 8:55 EDT) Anatomical Region Laterality Modality Lower Extremities Left Computed Radio graphy 05/04/2023 12:5 8 EDT Impressions 05/04/2023 12:58 EDT FINDINGS / IMPRESSION: * ??Right knee 4 views: Moderate joint effusion. Mild tricompartmental osteophyte formation. Normal mineralization. * ??Left knee 3 views: Mild tricompartment osteophytic spurring most notable medially. [id number] Narrative 05/04/2023 12:58 EDT EXAM/TECHNIQUE: 05/04/2023 8:45 AM ??XR KNEE LEFT 3 VIEWS, XR KNEE RIGHT 4 OR MORE VIEWS 3 (accession [id number]), 4 (accession [id number]) views ?? HISTORY: ??left knee for comparison;M25.561:Right knee pain, unspecified chronicity Procedure Note Clifford Santamaria MD - 05/04/2023 EXAM/TECHNIQUE: 05/04/2023 8:45 AM XR KNEE LEFT 3 VIEWS, XR KNEE RIGHT 4OR MORE VIEWS 3 (accession [id number]), 4 (accession [id number]) views HISTORY: left knee for comparison;M25.561:Right knee pain, unspecifiedchronicity IMPRESSION FINDINGS / IMPRESSION: * Right knee 4 views: Moderate joint effusion. Mild tricompartmentalosteophyte formation. Normal mineralization. * Left knee 3 views: Mild tricompartment osteophytic spurring mostnotable medially. [id number] Telma Brady NP IMG DIAGNOSTIC IMAGI NG [...] Mild tricompartment osteophytic spurring most notable medially. [id number] Narrative 05/04/2023 12:58 EDT EXAM/TECHNIQUE: 05/04/2023 8:45 AM ??XR KNEE LEFT 3 VIEWS, XR KNEE RIGHT 4 OR MORE VIEWS 3 (accession [id number]), 4 (accession [id number]) views ?? HISTORY: ??left knee for comparison;M25.561:Right knee pain, unspecified chronicity Procedure Note Clifford Santamaria MD - 05/04/2023 EXAM/TECHNIQUE: 05/04/2023 8:45 AM XR KNEE LEFT 3 VIEWS, XR KNEE RIGHT 4OR MORE VIEWS 3 (accession [id number]), 4 (accession [id number]) views HISTORY: left knee for comparison;M25.561:Right knee pain, unspecifiedchronicity IMPRESSION FINDINGS / IMPRESSION: * Right knee 4 views: Moderate joint effusion. Mild tricompartmentalosteophyte formation. Normal mineralization. * Left knee 3 views: Mild tricompartment osteophytic spurring mostnotable medially. [id number] Telma Brady NP IMG DIAGNOSTIC IMAGI NG ORDERABLES documented in this encounter Visit Diagnoses Diagnosis Right knee pain, unspecified chronicity documented in this encounter Care Teams Improvement Coordinator Relationship Specialty Start Date End Date Ruth Munoz APRN [address] [place] [address] PCP - General 04/26/19 06/19/23 documented as of this encounter
--- OUTSIDE RECORDS SUMMARY | 2024-05-15 11:01 | XMS_ITS | Encounter Summary ---
Author Organization [facility] Address [address] [place] [address] Care Team Providers Care Slurry Control Tender Name Role Phone AlexanderAidanantony Mcelroy APRN Primary Care Provider + Reason for Referral * Laboratory Services (Routine) - New Request Specialty Diagnoses / Procedures [facility] Referred To Contact Diagnoses History of urinary hesitancy Procedures URINE CHEMICAL (DIP) & SEDIMENT (MICRO) WITH REFLEX TO CULTURE Lyssa Kaplan MD [address] [place] [phone] Referral ID Status Reason Start Date Expiration Date V isits Requested Visits Authorized [id number] New Request 02/25/2021 1 1 Reason for Visit * Reason Onset Date Comments Pre-visit Orders 02/25/2021 Encounter Details Date Type Department Care Team (Late st Contact Info) Description 02/25/2021 Telephone [facility] Pelvic Medicine and Reconstructive Surgery - Medical Office [facility] [address] [place] [address] Lyssa Kaplan MD [address] [place] [phone] Pre-visit Orders Social History Tobacco Use Types [...] Miscellaneous Notes * Telephone Encounter - Allie Tony RN - 02/25/2021 1603 EDT Orders placed. * Telephone Encounter - Farrukh Gibbons - 02/25/2021 1557 EDT Patient scheduled for a VUDS on 03/23/21. Patient need an order sent to [facility] for a UA prior to VUDS. documented in this encounter Plan of Treatment Upcoming Encounters Date Type Department Care Team (Late st Contact Info) Description 05/22/2024 10:00 EDT Office Visit [facility] Foot & Ankle Program - [address] [place], [place] [phone] Edwige Keller DPM [address] [place] [phone] 07/18/2024 13:00 EDT Procedure visit [facility] Women's Services - [address] [phone] Jessica Murray, POLO [address] [facility], [facility], [address] [place] [address] Scheduled Orders Name Type Priority Associated Diagnoses Orde r Schedule URINE CHEMICAL (DIP) & SEDIMENT (MICRO) WITH REFLEX TO CULTURE Lab Routine History of urinary hesitancy Ordered: 02/25/2021 documented as of this encounter Visit Diagnoses Diagnosis History of urinary hesitancy- Primary documented in this encounter Care Teams Slurry Control Tender Relationship Specialty Start Date End Date Ruth Munoz APRN [address] [place] [address] PCP - General 04/26/19 06/19/23 documented as of this encounter
--- OUTSIDE RECORDS SUMMARY | 2024-05-15 11:01 | XMS_ITS | Encounter Summary ---
Author Organization [facility] Address [address] [place] [address] Care Team Providers Care Fabric Stretcher Name Role Phone MunozAidanantony Mcelroy APRN Primary Care Provider + Reason for Visit * Reason Comments Urine Change VUDS Encounter Details Date Type Department Care Team (Late st Contact Info) Description 04/08/2021 10:00 EDT Procedure visit [facility] Pelvic Medicine and Reconstructive Surgery - Medical Office [facility] [address] [place] [address] Lyssa Kaplan MD [address] [facility], [address] [place] [address] Weak urinary stream (Primary Dx) Social History [...] as of this encounter Progress Notes * Len Fernandez RN - 04/08/2021 1000 EDT Two patient identifiers confirmed. Patient Education Topic: Urodynamics Method: Verbal Taught to: Patient Barriers: None Outcomes: verbalized understanding. Procedure explained in detail to patient with all patient questions answered.The patient indicates understanding of the procedure and agrees with the plan to proceed. Urine sample obtained prior to Urodynamic testing via outside lab. UA negative 03/30/21. Prolapse present: No Reduction method: Not applicable Pessary removed at completion of study: N/A Timeout To the best of my knowledge, the patient has been provided the information needed in order to consent to this procedure/treatment. If the patient is DNR, required reconsideration completed: N/A A Timeout immediately prior to the incision/procedure has been conducted by the attending provider/proceduralist, anesthesia provider, including all members of the procedural team as appropriate to their involvement in the procedure. The patient's identity, procedure, and when applicable the: pre-procedure checklist, side/site, patient position, availability of implants and any special equipment or special requirements were verbally confirmed prior to the procedure. Testing performed/completed per protocol. I was supervised by Dr. Kaplan who was present and immediately available in the office suite. LEN MILLER RN 04/08/2021 9:13 * Lyssa Kaplan MD - 04/08/2021 1000 EDT Urodynamics Report Preoperative Diagnosis: Worsening urinary stream Postoperative Diagnosis: Same Procedure/Operation Performed: Urodynamics Attending Surgeon: Lyssa Kaplan MD Anesthesia: None Indications for Procedure: The procedure was described in detail to the patient. The risks, benefits, and alternatives were thoroughly discussed. The patient wished to proceed with the recommended procedure. Informed consent was obtained and is documented in the chart. Time Out: A time-out was completed verifying correct patient, procedure, site, positioning, and implant(s) and/or special equipment prior to beginning this procedure. Procedure and Findings: The patient was in the supine position for the study. The pretest postvoid residual was 5 ml. Urinalysis was negative for leukocyte esterase and negative for nitrites. A triple lumen urodynamics catheter was placed per urethra ?? Filling medium: cystograffin ?? Zeroing method: water ?? Rectal catheter was placed. ?? Pressure measurements: were obtained ?? Fluoroscopy was used. ??? Patch EMG electrodes were placed on the perineum. Cystometrogram: Fill rate: 50 ml/min First sensation: 46 ml First desire to void: 440 ml Strong urge: 515 ml Bladder capacity was: 515 ml Bladder was filled to: 515 ml Compliance was normal to 515cc An uninhibited detrusor contraction did not occur Fluoroscopy: Bladder neck at rest was: open. Bladder wall: smooth Vesicoureteral reflux: was not observed Cystocele: was not present. With stress maneuvers, stress incontinence: was not demonstrated. Pressure Flow: A detrusor contraction occurred at a volume of 515 ml and was voluntary. Flow pattern was blunted curve Peak flow rate was 8 ml/sec. Detrusor pressure at peak flow was 64 cm H2O. During the contraction, the bladder neck was open. Voided volume: 557 ml Post Void Residual from the urodynamic catheter after the void was 0 ml Urethral sphincter activity increased with voiding. During voiding, the pelvic floor muscles did not relax. Uroflow: Voided volume 155 ml. Max flow 11.6 ml/sec. Mean flow 4.8 ml/sec. Uroflow curve was: Voiding time 33 sec. Estimated Blood Loss: None Complications: None Urodynamics Diagnosis: Diminished or delayed sensation Dysfunctional voiding Normal bladder capacity Impression: high EMG acitvity during void although patient notes that she does not push this much usually although I do not see much valsalva. Normal compliance. Timed voiding Bowel regimen Consider PFPT. F/u Dr Rivera documented in this encounter Plan of Treatment Upcoming Encounters Date Type Department Care Team (Late st Contact Info) Description 05/22/2024 10:00 EDT Office Visit [facility] Foot & Ankle Program - [address] [place], [place] [phone] Edwige Keller DPM [address] [place] [address] 07/18/2024 13:00 EDT Procedure visit [facility] Women's Services - [facility] [address] [place] [address] Jessica Murray, POLO 111 [facility], [address] [place] [phone] documented as of this encounter Procedures Procedure Name Priority Date/Time Associated Diagnosis Comments PATHOLOGY - SCANNED 08/03/2021 19:38 EDT documented in this encounter Results * PATHOLOGY - SCANNED (08/03/2021 19:38 EDT) 08/03/2021 19:3 8 EDT Scan 2 Soil Tester LAB INFO SERVICE AN D SUPPORT & PHONE RESULT documented in this encounter Visit Diagnoses Diagnosis Weak urinary stream- Primary Slowing of urinary stream documented in this encounter Care Teams Fabric Stretcher Relationship Specialty Start Date End Date Ruth Munoz APRN [address] [place] [phone] PCP - General 04/26/19 06/19/23 documented as of this encounter
--- OUTSIDE RECORDS SUMMARY | 2024-05-15 11:01 | XMS_ITS | Encounter Summary ---
Author Organization [facility] Address [address] [place] [address] Care Team Providers Care Health Systems Analyst Name Role Phone Ruth Munoz APRN Primary Care Provider + Katia Haywood Primary Care Provider [phone] Encounter Details Date Type Department Care Team (Late st Contact Info) Description 09/24/2020 Lab Requisition [facility] Pathology & Laboratory Medicine - [facility] [address] [place], [place] [address] Outr Resulting Lab, Provider Social History Tobacco [...] Info) Description 05/22/2024 10:00 EDT Office Visit [facility] Foot & Ankle Program - [address] [place] [address] Edwige Keller DPLilibeth [address] [place] [address] 07/18/2024 13:00 EDT Procedure visit [facility] Women's Services - [facility] [address] [place] [address] Jessica Murray, POLO 111 [facility], [facility], [address] [place] [address] documented as of this encounter Procedures Procedure Name Priority Date/Time Associated Diagnosis Comments VITAMIN D (25,OH) Routine 09/24/2020 17: 04 EST documented in this encounter Results * VITAMIN D (25,OH) (09/24/2020 17:04 EST) 25OH Vitamin D Tot 36.5 30.0 - 100.0 ng/mL 09/25/2020 11:07 EST [facility] Comment: Vitamin D 25,OH Interpretive Ranges: Deficiency: ??<10.0 ng/mL Insufficiency: ??10.0 - 30.0 ng/mL Sufficiency: ??30.0 - 100.0 ng/mL Toxicity: ??>100.0 ng/mL Blood VENOUS BLOOD / Unknown 09/24/2020 17:04 EST 09/24/2020 21:38 EST Provider Outr Resulting Lab CHEMISTRY & BLOOD GAS ORDERABLES [facility] [address] [place] [address] documented in this encounter Visit Diagnoses Not on filedocumented in this encounter Care Teams Health Systems Analyst Relationship Specialty Start Date End Date Ruth Munoz APRN [address] [place] [phone] PCP - General 04/26/19 06/19/23 Katia [place] [address] [phone] PCP - General Family Medicine - Primary Care 06/20/23 documented as of this encounter
--- OUTSIDE RECORDS SUMMARY | 2024-05-15 11:01 | XMS_ITS | Encounter Summary ---
Author Organization [facility] Address [address] [place] [address] Care Team Providers Care Fire Protection Engineering Technician Name Role Phone AlexanderAidanantony Mcelroy APRN Primary Care Provider + Reason for Visit * Reason Comments Foot Problem Encounter Details Date Type Department Care Team (Late st Contact Info) Description 01/07/2021 10:[address] [facility] - [address] [address] Edwige Keller, DP [address] [place] [address] Pre-ulcerative calluses (Primary Dx); Type 2 diabetes mellitus with diabetic polyneuropathy, with long-term current use of insulin ([facility]) Social History Tobacco Use Types Packs/Day Years [...] Progress Notes * Edwige Keller, DPM - 01/07/2021 1030 EDT Martha Benoit is a very pleasant 55 y.o. female patient who presents for follow up plantar central left heel ulcer. She reports that this has remained well- healed. She believes the callus is doing well as well. She finds this down every now and then and applies lotion regularly. She still wears thepadding in her shoe for extra cushion, otherwise she has discomfort in the area. She wanted to havethis evaluated to make sure everything is healing appropriately. Overall she is feeling well today. Patient Active Problem List Diagnosis Date Noted ??? Diabetes mellitus ([facility]) 08/11/2014 Priority: Medium ??? Vitamin D deficiency 01/28/2010 ??? Morbid obesity ([facility]) 01/22/2010 ??? Mild dysplasia of cervix (AIDEN I) 06/26/2009 Past Medical History: Diagnosis Date ??? Unspecified cerebral artery occlusion with cerebral infarction Past Surgical History: Procedure Laterality Date ??? CERVIX LESION DESTRUCTION 07/15/2009 ??? GASTRIC BYPASS SURGERY 01/04/16 ??? LEEP 07/15/2009 ??? TUBAL LIGATION Social History Tobacco Use ??? Smoking status: Never Smoker ??? Smokeless tobacco: Never Used Substance Use Topics ??? Alcohol use: No Family History Problem Relation Age of Onset ??? Colon Cancer Father ??? Diabetes Father ??? Stroke Father ??? Cervical Cancer Sister ??? Diabetes Sister ??? Heart Disease Sister [place] at age 42 = ??? Diabetes Mother [...] ABDOMEN TWO TIMES A DAYAS NEEDED No current facility-administered medications for this visit. [...] less than 3 seconds to all toes. ?Ulcer plantar central left heel- remains healed. Very mild overlying hyperkeratotic tissue. No probing. No pain. No erythema or edema. No fluct uace.??Fat pad atrophy central heel.??No other open lesions. ??Protective sensation absent. ??Unable to assess manual muscle testing on the left. ?? ASSESSMENT: 1. Pre-ulcerative calluses 2. Type 2 diabetes mellitus with diabetic polyneuropathy, with long-term current use of insulin ([facility]) No orders of the defined types were placed in this encounter. PLAN: Ms. Benoit presents today for follow-up history of plantar left central heel ulcer. This remains well-healed. She has very minimal callus buildup. I lightly pared this down today. She can continue with the lotion and occasional callus care. We discussed that she will continue to have some fat pad atrophy here given her ulceration history. She will likely continue to need some form of extra paddingin this area. She is doing well with the sanitary pads and shoes. She is going to follow-up with mere needed. She knows to call with any questions and is happy with this plan. Portions of this document have been prepared with speech recognition software or keyboard data processing equipment repairer techniques. Minor irregularities or keyboarding misprints may be present documented in this encounter Plan of Treatment Upcoming Encounters Date Type Department Care Team (Late st Contact Info) Description 05/22/2024 10:[address] [facility] - [place] [address] [place] [address] Edwige Keller DPM [address] [place] [address] 07/18/2024 13:[address] [facility] - [address] [place] [address] Jessica Murray, POLO 111 [facility], [facility], [address] [place] [address] documented as of this encounter Visit Diagnoses Diagnosis Pre-ulcerative calluses- Primary Corns and callosities Type 2 diabetes mellitus with diabetic polyneuropathy, with long-term current use of insulin ([facility]) documented in this encounter Care Teams Fire Protection Engineering Technician Relationship Specialty Start Date End Date Ruth Munoz APRN 4 [facility] [place] [phone] PCP - General 04/26/19 06/19/23 documented as of this encounter
--- OUTSIDE RECORDS SUMMARY | 2024-05-15 11:01 | XMS_ITS | Encounter Summary ---
Author Organization [facility] Address [address] [place] [address] Care Team Providers Care Motor Pool Clerk Name Role Phone Katia Haywood Primary Care Provider Reason for Visit * Reason Onset Date Comments Results 07/17/2023 Encounter Details Date Type Department Care Team (Late st Contact Info) Description 07/17/2023 Telephone [facility] [address] [address] Katy Lubin MD 111 [facility], [address] [place] [address] Results Social History Tobacco Use Types Packs/Day Years [...] encounter Miscellaneous Notes * Telephone Encounter - Katy Lubin MD - 07/17/2023 1239 EDT Patient called with results and recommendations. Told her that all results negative. Still waiting on pap and HPV - if these are negative then can just get pap and HPV next year. If pap or HPV abnl then will continue with combo colpo/pap/HPV as she declines doing sequential testing. Final Diagnosis A. CERVIX, 6 O'CLOCK, BIOPSY: - Benign squamous mucosa with atrophy. ?? B. VAGINA, RIGHT LATERAL FORNIX AND UPPER VAGINAL-CERVICAL JUNCTION, BIOPSY: - Benign squamous mucosa with hyperparakeratosis and atrophy. - Fragment suggestive of fibroepithelial stromal polyp. ?? C. ENDOCERVIX, CURETTAGE: - Very scant fragments of benign endocervix. documented in this encounter Plan of Treatment Upcoming Encounters Date Type Department Care Team (Late st Contact Info) Description 05/22/2024 10:00 EDT Office Visit [facility] - [address] [place] [address] Edwige Keller, [address] [address] 07/18/2024 13:00 EDT Procedure visit [facility] Services - [facility] [address] [place], [place] [phone] Jessica Murray NP 111 [facility], [facility], [address] [place] [address] documented as of this encounter Visit Diagnoses Not on filedocumented in this encounter Care Teams Motor Pool Clerk Relationship Specialty Start Date End Date Katia Haywood [address] [place] [address] PCP - General Family Medicine - Primary Care 06/20/23 documented as of this encounter
--- OUTSIDE RECORDS SUMMARY | 2024-05-15 11:01 | XMS_ITS | Encounter Summary ---
Author Organization [facility] Address [address] [place] [address] Care Team Providers Care Manager Client Name Role Phone Katia Haywood Primary Care Provider [phone] Reason for Visit * Reason Comments Procedure Encounter Details Date Type Department Care Team (Late st Contact Info) Description 07/13/2023 10:15 EDT Procedure visit [facility] Women's Services - [address] [phone] Katy Lubin MD 111 [facility], [address] [place] [address] Pap smear abnormality of cervix/human papillomavirus (HPV) positive (Primary Dx); Cervical high risk human papillomavirus (HPV) DNA [...] Sign Reading Time Taken Comments Blood Pressure 134/64 07/13/2023 1015 EDT Pulse - - Temperature - - [...] this encounter Patient Instructions * Patient Instructions* Abril Manriquez MA - 07/13/2023 10:15 EDT Colposcopy Instructions A Colposcopy is performed to evaluate the cervix, vagina, and vulva using a colposcope. Biopsies are often performed at the same time. If biopsies are done, a special paste may be applied to your cervix to stop any bleeding. You may use pads for any spotting or light bleeding that might occur and if the paste is used it is normal tohave a brownish-black discharge. Please do not put anything in your vagina such as tampons, douching or have intercourse for three (3) days. If biopsies are not done, the above limitations are not nec essary. Heavy bleeding is a complication that rarely happens after biopsies. If, however, within the next few days, you are soaking 1 large maxi pad an hour for 2 hours in a row, call our office during the hours of 8 am to 5 pm. After 5 pm, please go to the [facility]. Your biopsy and pap smear results will be phoned to you the week following your procedure between 9:00 am and 5:00 pm. If you have any questions or concerns, please don???t hesitate to call: [facility] MD Jessica Sebastian NP Elisabeth Wegner, MD Tracy Maurer, MD documented in this encounter Progress Notes * Katy Lubin MD - 07/13/2023 1015 EDT Images from the original note were not included. Colposcopy Procedure Note 57 y.o. . Here for pap and colpo - declines doing pap first and does not want to space out colpos. Used E2 cream in past but messy with prolapse so does not want to use. Prolapse issues getting worse, never used pessary. Sees Dr. Rivera, plans surgery for October. No incontinence. No VB. No discharge. Indications: HPV positive x years History of cervical cytology, colposcopy, treatment: 06/2009, [...] atypical metaplasia, ECC neg, vag bx benign Prior Hysterectomy: No non-smoker HIV: No Procedure Details The risks and benefits of the procedure and written informed consent obtained. Vulva inspected. Speculum placed in vagina and visualization of cervix achieved. Pap done. Vagina and cervix soaked with acetic acid solution. Cervix and vagina painted with Lugol's solution. Blood pressure 134/64. Exam was chaperoned by Abril Manriquez MA. Image: Cervical colposcopy: Visualization of the cervix: Fully Visualized Visualization of the SCJ: Not Fully Visualized Acetowhite Changes: No Normal Colposcopic Findings: Original Squamous Epithelium and Nabothian Cysts Abnormal Colposcopic Findings: Lesions Present: Yes Location of Lesion: 6 o'clock, Lesion Fully Visualized: Yes, Lesion at the SCJ: Yes, 1 Quadrants Involved, 15% of Surface Area of TZ Occupied and thickened - lugols negative, not really a discrete lesion - just no lugols uptake Vaginalcolposcopy: multiple thickened, lugols negative areas - most consistent with changes associated with prolapse but not able to distinguish from other skin lesions Vulvar inspection: No visible lesions. Clinical Impressions: Colposcopy: Normal/Benign With inflammatory and parakeratosis from prolase and skin irritation - nodiscrete well demarcated lesion that suggest dysplasia Specimens: Cervix: 6 O'Clock, ECC: Curettage, [place], right fornix, left upper cervicovaginal junction Vaginal Wall Pap and HPV Complications: None. Plan: Patient will be called with pathology results and recommendations next week. Instructions sheet given to patient. Katy Lubin MD documented in this encounter Plan of Treatment Upcoming Encounters Date Type Department Care Team (Late st Contact Info) Description 05/22/2024 10:00 EDT Office Visit [facility] - [address] [place] [address] Edwige Keller DPM [address] [place] [phone] 07/18/2024 13:00 EDT Procedure visit [facility] Women's Services - [facility] [address] [place], [place] [phone] Jessica Murray NP 111 [facility], [facility], [address] [place] [address] documented as of this encounter Procedures Procedure Name Priority Date/Time Associated Diagnosis Comments PAP TEST Routine 07/13/2023 11:27 EDT Pap smear abnormality of cervix/human papillomavirus (HPV) positive SURGICAL PATHOLOGY Routine 07/13/2023 11 :27 EDT Pap smear abnormality of cervix/human papillomavirus (HPV) positive Cervical 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 HPV GENOTYPES 16 AND 18/45 Today 07/13/2023 11:27 EDT Pap smear abnormality of cervix/human papillomavirus (HPV) positive HPV DNA DETECTION WITH GENOTYPING, PCR Today 07/13/2023 11:27 EDT Pap smear abnormality of cervix/human papillomavirus (HPV) positive documented in this encounter Results * (ABNORMAL) HPV GENOTYPES 16 AND 18/45 (07/13/2023 11:27 EDT) HPV High Risk type 16, PCR Negative Negative 08/01/2023 13:13 EDT [facility] HPV18/45 RNA (HPV18/45) Positive(A) Negative 08/01/2023 13:13 EDT [facility] Pap Test CERVIX UTERI STRUCTURE / Unknown 07/13/2023 11:27 EDT 07/25/2023 15:45 EDT Katy Lubin MD MICROBIOLOGY - GEN ERAL ORDERABLES [facility] [address] [place] [address] * (ABNORMAL) HUMAN PAPILLOMAVIRUS (HPV) DETECTION-HIGH RISK TYPES (07/13/2023 11:27 EDT) HPV other High Risk types, PCR Positive( A) Negative 07/26/2023 23:10 EDT [facility] Comment:E6 OR E7 mRNA from o ne or more types of HPV types 16,18,31,33,35,39,45,51,52,56,58,59,66, and 68 is detected by tipple mechanic mediated amplification. High and intermediate risk HPV types are associated with most squamous intraepithelial lesions and cervical cancers. Pap Test CERVIX UTERI STRUCTURE / Unknown 07/13/2023 11:27 EDT 07/25/2023 15:45 EDT Katy Lubin MD MICROBIOLOGY - GEN ERAL ORDERABLES [facility] [address] [place] [address] * SURGICAL PATHOLOGY (07/13/2023 11:27 EDT) Note to Patient The following pathology results have been interpreted by your pathologist and may be available to you before your health provider has had the opportunity to review them. Please allow time for your provider to receive these results and explore management options, if applicable. 07/17/2023 8:55 EDT [facility] Final Diagnosis A. CERVIX, 6 O'CLOCK, BIOPSY: - Benign squamous mucosa with atrophy. B. VAGINA, RIGHT LATERAL FORNIX AND UPPER VAGINAL-CERVICAL JUNCTION, BIOPSY: - Benign squamous mucosa with hyperparakeratosis and atrophy. - Fragment suggestive of fibroepithelial stromal polyp. C. ENDOCERVIX, CURETTAGE: - Very scant fragments of benign endocervix. 07/17/2023 8:55 EDT [facility] Attestation There was significant resident/fellow involvement in the diagnostic evaluation of this case. By the signature below, the attending physician certifies that they have personally conducted a gross and/or microscopic examination of the described specimens and rendered or confirmed the above diagnosis. 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 Received in formalin labelled with proper patient identification (initials P, J) and CX Bx 6 o'clock is a jones-brown tissue fragment, 0.4 x 0.3 x 0.2 cm. Entirely submitted in A1. B. Received in formalin labelled with proper patient identification (initials P, J) and vaginal Bx right lateral fornix and are two irregular rubbery russell-brown to jones tissue fragments, 0.3 x 0.3 x 0.3 cm and 0.4 x 0.2 x 0.1 cm. Entirely submitted in B1. C. Received in formalin labelled with proper patient identification (initials P, J) and ECC? are two flecks of possible tissue each measuring 0.1 cm in greatest dimension. The specimen is filtered and entirely submitted in C1 however may not survive processing. BERE ELIZABETH(ASCP) 07/13/2023 17:00 07/17/2023 8:55 EDT [facility] Resident/Fell ow: Jennifer Harvey MD 07/17/2023 8:55 EDT [facility] Performing Lab [facility] 07/17/2023 8:55 EDT [facility] Scanned Images 07/17/2023 8:55 EDT [facility] Tissue ENDOCERVICAL STRUCTURE / Unknown Collection, Other / Unknown 07/13/2023 11:27 EDT 07/13/2023 14:54 EDT Tissue specimen (specimen) VAGINAL STRUCTURE / Unknown 07/13/2023 11:27 EDT 07/13/2023 14:54 EDT Tissue specimen (specimen) ENDOCERVICAL STRUCTURE / Unknown 07/13/2023 11:27 EDT 07/13/2023 14:54 EDT Katy Lubin MD PATHOLOGY ORDERABL ES [facility] [address] [place] [address] * PAP TEST (07/13/2023 11:27 EDT) Specimens A. Cervix and/or Endocervix , ThinPrep Imaging System with Manual Evaluation 08/01/2023 13:13 T [facility] Specimen Adequacy Satisfactory for Evaluation - transformation zone component present 08/01/2023 13:13 [facility] General Categorization Negative for intraepithelial lesion or malignancy 08/01/2023 13:13 T [facility] Descriptive Diagnosis Reactive cellular changes associated with inflammation present (includes repair). 08/01/2023 13:13 [facility] Attestation By the signature below, the attending physician certifies that they have personally conducted a gross and/or microscopic examination of the described specimens and rendered or confirmed the above diagnosis. 08/01/2023 13:13 EDT [facility] at 1313 Clinical History longstanding HPV 18 pos 08/01/2023 13:13 EDT [facility] HPV The result for the Human Papillomavirus (HPV) Detection-High Risk Types is Positive . E6 OR E7 mRNA from one or more types of HPV types 16,18,31,33,35,39 ,45,51,52,56,58,5 9,66, and 68 is detected by tipple mechanic mediated amplification. High and intermediate risk HPV types are associated with most squamous intraepithelial lesions and cervical cancers. Testing was performed on specimen [id number] and was resulted on 07/26/2023 1610 EDT by GODFREY, LAB INSTRUMENT RESULTS IN 08/01/2023 13:13 EDT [facility] Genotyping 16 & 18/45 The results for the HPV Genotypes 16 and 18/45 are Negative for the HPV16 RNA and Positive for the HPV18/45 RNA (HPV18/45) . Testing was performed on specimen [id number] and was resulted on 08/01/2023 1313 EDT by GODFREY, LAB INSTRUMENT RESULTS IN 08/01/2023 13:13 EDT [facility] Performing Lab [facility] 08/01/2023 13:13 T [facility] Scanned Images 08/01/2023 13:13 T [facility] Pap Test CERVIX UTERI STRUCTURE / Unknown 07/13/2023 11:27 EDT 07/14/2023 11:17 EDT Katy Lubin MD PATHOLOGY ORDERABL ES [facility] [address] [place] [address] documented in this encounter Visit Diagnoses Diagnosis Pap smear abnormality of cervix/human papillomavirus (HPV) positive- Primary Other abnormal Papanicolaou smear of cervix and cervical HPV Cervical 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 documented in this encounter Care Teams Manager Client Relationship Specialty Start Date End Date Katia Haywood [address] [place] [place] [phone] PCP - General Family Medicine - Primary Care 06/20/23 documented as of this encounter
--- OUTSIDE RECORDS SUMMARY | 2024-05-15 11:01 | XMS_ITS | Encounter Summary ---
Author Organization [facility] Address [address] [place] [address] Care Team Providers Care Masonry Instructor Name Role Phone Ruth Munoz WOOD GETTER Primary Care Provider + Reason for Visit * Reason Comments Otalgia * Referral (Routine) - Receiving Office to Obtain Authorization Specialty Diagnoses / Procedures Referred By Patricio monsivais Referred To Contact Otolaryngology Diagnoses Otalgia, left ear Ruth Munoz, WOOD GETTER [address] [place] [address] [facility] [address] [place] [address] Referral ID Status Reason Start Date Expiration Date Visits Requested Visits Authorized [id number] Receiving Office to Obtain Authorization 1 1 Encounter Details Date Type Department Care Team (Late st Contact Info) Description 05/04/2021 10:00 EDT Audiology [facility] [address] [place] [address] Purvi Butts, AuD [address] [place] [address] Sensorineural hearing loss (SNHL) of left ear with restricted hearing of right ear (Primary Dx) Social History Tobacco Use Types [...] as of this encounter Progress Notes * Purvi Butts, AuD - 05/04/2021 1000 EDT HPI: The patient was referred by Ruth Munoz APRN for otaligia, left ear; reports it fluctuatesin severity of pain; denied tinnitus bilaterally; it always feels like pressure on the left; denieddizzienss; 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 Rachel Castro on 05/13/2021; no changes in hearing compared to this assessment Tympanometry:Type A with normal ear canal volume, pressure and compliance indicating normal middle ear function Reliability: good Impressions: Sensorineural hearing loss of the left ear, restricted hearing on the right Recommendations: -Recheck hearing in one year or sooner if changes occur or is otherwise indicated -Follow up with referring provider as recommended -Follow up with application tester as recommended Notes: Previous chart notes indicate an MRI was scheduled to assess the internal auditory canalS and that the patient was recommended to see a neurologist documented in this encounter Plan of Treatment Upcoming Encounters Date Type Department Care Team (Late st Contact Info) Description 05/22/2024 10:00 EDT Office Visit [facility]le Program - [address] [place] [address] Edwige Keller DPM [address] [place] [phone] 07/18/2024 13:00 EDT Procedure visit [facility] Women's Services - [address] [address] Jessica Murray NP 111 [facility], [address] [place] [phone] documented as of this encounter Visit Diagnoses Diagnosis Sensorineural hearing loss (SNHL) of left ear with restricted hearing of right ear- Primary documented in this encounter Care Teams Masonry Instructor Relationship Specialty Start Date End Date Ruth Munoz APRN [address] [place] [phone] PCP - General 04/26/19 06/19/23 documented as of this encounter
--- OUTSIDE RECORDS SUMMARY | 2024-05-15 11:01 | XMS_ITS | Encounter Summary ---
Author Organization [facility] Address [address] [place] [address] Care Team Providers Care Spray Dyer Name Role Phone Ruth Munoz APRN Primary Care Provider + Reason for Referral * PT/OT/ST (Routine/Next Available) - Closed Specialty Diagnoses / Procedures Referred By Patricio monsivais Referred To Contact Rehab Therapies Diagnoses Osteoarthritis of right patellofemoral joint Quadriceps weakness Telma Brady NP [address] [place] [phone] Referral ID Status Reason Start Date Expiration Date V isits Requested Visits Authorized [id number] Closed Specialty Services Required 05/04/2023 1 1 Question Answer Reason for Request: right knee patellofemoral osteoarthritis, quadriceps weakness Comments Eval and Treat: knee pain and dysfunction. Goals: to restore core & lower extremity ROM, strength, and stability. Focus on quadriceps strengthening. Neuromuscular rehabilitation: balance/proprioception/muscle education. Instruct activity modification and HEP. Utilize pool-based program prn for low-impact, if land-based program is not well tolerated. Manual treatments/anti-inflammatory modalities as tolerated. Reason for Visit * Reason Comments Pain * Referral (Routine) - Receiving Office to Obtain Authorization Specialty Diagnoses / Procedures Referred By Patricio monsivais Referred To Contact Orthopedic Surgery Diagnoses Pain in right knee Ruth Munoz APRN [address] [place] [phone] [facility] Orth[facility] Total Joint [address] [place] [address] Referral ID Status Reason Start Date Expiration Date Visits Requested Visits Authorized [id number] Receiving Office to Obtain Authorization 1 1 Encounter Details Date Type Department Care Team (Latest Contact Info) Description 05/04/2023 9:00 EDT Office Visit [facility] Total Joint Program - [place] [address] [place] [address] Telma Brady NP [address] [place] [address] Osteoarthritis of right patellofemoral joint (Primary Dx); Quadriceps weakness Social History Tobacco Use Types Packs/Day Years Used Date Smoking Tobacco: Never Smokeless Tobacco: Never Tobacco Cessation:Counseling Given: Not Answered Alcohol Use Standard Drinks/Week Comments No 0 [...] as of this encounter Progress Notes * Telma Brady NP - 05/04/2023 0900 EDTAssociated Order(s): Large Joint Injection/Arthrocentesis: R knee Post-Procedure Diagnose(s): Osteoarthritis of right patellofemoral joint New knee pain visit; Chief Complaint Patient presents with ??? Right Knee - Pain HPI: Martha Benoit is a 57 y.o. patient with type 2 diabetes, hypothyroidism, and peripheral neuropathy whom I am seeing in consultation requested by Dr. Munoz who presents with right knee pain. She reports her knee started to bother her about 3 months ago without injury. She describes a sharp pinching sensation in the anterior medial aspect of the knee when standing from sitting. She also describes a burning sensation in the posterior aspect of the knee when standing, as if her knee hyperextends. She denies significant swelling, catching or locking. Occasionally she feels like the knee will give out. She denies any falls. She feels overall she is losing strength. She does ambulate with a walker given her peripheral neuropathy and bilateral foot drop, particular for balance. She takes oxycodone for chronic pain as well as gabapentin. She has never had injections or surgery to her right knee. She has not attended physical therapy. She has lost about 20 pounds in the last few months, which has improved some of her knee pain. She rates her pain today as 3/10 in severity at rest. Comprehensive health database form (including 10 system review) was completed with the patient, reviewed, signed and scanned into EMR system. Medication reconciliation was completed. Past Medical History: reviewed as documented in PRISM chart Past Surgical History: Procedure Laterality Date ??? CERVIX LESION DESTRUCTION 07/15/2009 ??? GASTRIC BYPASS SURGERY 01/04/16 ??? LEEP 07/15/2009 ??? TUBAL LIGATION Occupation: retired PHYSICALEXAM: A Level 5 single system orthopedic exam was conducted on both lower extremities. This included: General: Well-appearing female in no acute distress. Mood and affect appropriate. Vital Signs: There were no vitals taken for this visit. A and O x3. Eyes: Sclerae clear. Cardiovascular: Capillary refill normal. Respiratory: Regular, unlabored, without audible wheezing Station and Gait: Arises from seated position with knee pain, normal station with level pelvis in standing position. She ambulates with bilateral foot drop Pelvis and Hips: No tenderness or masses, hip ROM is symmetric without reproduction of patient's presenting leg complaint(s) RIGHT KNEE: Skin: Intact to inspection and palpation. No prior incisions/scars No effusion. Standing alignment: neutral ROM 0 to 125 degrees, anterior pain with deep flexion She does have tenderness over the medial compartment, does not have tenderness over the lateral compartment and does have tenderness over the medial patellofemoral compartment. She does not have a positive Stacy. She does not have a palpable Acharya's cyst. Ligament testing: A/P and V/V testing reveals no pathologic laxity or fixed deformity Extensor mechanism intact LEFT KNEE: Skin: Intact to inspection and palpation. No prior incisions/scars No effusion. Standing alignment: neutral ROM 0 to 130 degrees She does have slight tenderness over the medial compartment, does not have tenderness over the lateral compartment and does not have tenderness over the patellofemoral compartment. She does not have a palpable Acharya's cyst. Ligament testing: A/P and V/V testing reveals no pathologic laxity or fixed deformity Extensor mechanism intact Bilateral quadricep atrophy evident Lower leg and ankles/feet: normal skin integrity and functional ROM. Neurologic: Decreased sensation to light touch in both lower extremities. Tib- ant muscle strength 1/5 bilateral, gastroc-soleus muscle strength 4/5 bilateral Lymphadenopathy: none noted Vascular: DP/PT pulses +2 bilaterally REVIEW OF IMAGING: Weight bearing arthritis series including bilateral AP knees, PA flex, lateral knee(s), and skylineare personally reviewed revealing: Right knee: Mild degenerative changes evident in the right knee, most evident in the patellofemoral compartment. No fracture or other osseous abnormality ASSESSMENT: 57 y.o. female with right knee patellofemoral osteoarthritis and quadricep weakness PLAN: Non-operative treatment plan: -Encouraged low impact exercise as tolerated -OTC anti-inflammatories as needed. Did discuss topical diclofenac as needed as well -Physical therapy strongly encouraged to work on lower extremity strengthening, particularly quadricep strengthening, gait and mobility -Intra-articular corticosteroid/bupivicaine injection discussed and offered. She would like to proceed with this option today, as described below -Continue the use of a walker for better stability/support Today, Martha was interested in pursing a right knee cortisone injection. Risks and benefits were reviewed. Verbal consent was obtained. The right side was confirmed twice and final verification was performed. The anterolateral portal was prepped with chlorahexadine and sprayed with ethyl chloride spray. Under sterile conditions, through the lateral soft spot of the right knee, I injected a mixture of 6 mL of 0.5% bupivacaine mixed with 80mg of Depo-Medrol. The patient tolerated the injection well. She was advised to follow-up if any signs consistent with infection present. Procedure: Large Joint Injection/Arthrocentesis: R knee on 05/04/2023 9:00 Indications: pain Details: 22 G needle, anterolateral approach Medications: 80 mg methylPREDNISolone ACETATE 80 mg/mL; 6 mL BUPivacaine (PF) 0.5% Outcome: tolerated well, no immediate complications Procedure, treatment alternatives, risks and benefits explained, specific risks discussed. Consent was given by the patient. Immediately prior to procedure a time out was called to verify the correctpatient, procedure, equipment, computer support technician and site/side marked as required. Patient was prepped and draped in the usual sterile fashion. DISPOSITION: follow-up in [facility] as needed Dr. Oliveros was the attending physician available in the clinic today if needed. A consultation was not required. I spent a total of 40 minutes on the date of this encounter meeting with the patient and reviewing documentation/coordinating care as described in the above note. This was separate from any procedures performed at the time of the visit. All or part of this document has been prepared with speech recognition software and/or keyboard big data developer techniques. Minor irregularities may be present. Cc: Ruth Munoz Cc: Alexander documented in this encounter Plan of Treatment Upcoming Encounters Date Type Department Care Team (Late st Contact Info) Description 05/22/2024 10:00 EDT Office Visit [facility] Foot & Ankle Program - [address] [place] [address] Edwige Keller DPM [address] [place] [phone] 07/18/2024 13:00 EDT Procedure visit [facility] Women's Services - [facility] [address] [place] [address] Jessica Murray NP 111 [facility], [address] [place] [phone] Scheduled Referrals Name Type Priority Associated Diagnoses Orde r Schedule AMB CONS/FOLLOW UP PHYSICAL THERAPY - OUTSIDE OF NETWORK Outpatient Referral Routine/Next Available Osteoarthritis of right patellofemoral joint Quadriceps weakness Expected: 05/11/2023 (Approximate), Expires: 05/04/2024 documented as of this encounter Procedures Procedure Name Priority Date/Time Associated Diagnosis Comments LARGE JOINT INJECTION/ARTHROCE NTESIS Routine 05/04/2023 9:00 EDT Osteoarthritis of right patellofemoral joint documented in this encounter Results * [place] ARTHROCENTESIS ASPIR&/INJ MAJOR JT/BURSA W/O US (05/04/2023 9:00 EDT) Narrative [facility]INT [facility]ARE - 05/04/2023 9:00 EDT Telma Brady NP ? 05/04/2023 10:44 Large Joint Injection/Arthrocentesis: R knee on 05/04/2023 9:00 Indications: pain Details: 22 G needle, anterolateral approach Medications: 80 mg methylPREDNISolone ACETATE 80 mg/mL; 6 mL BUPivacaine (PF) 0.5% Outcome: tolerated well, no immediate complications Procedure, treatment alternatives, risks and benefits explained, specific risks discussed. Consent was given by the patient. Immediately prior to procedure a time out was called to verify the correct patient, procedure, equipment, computer support technician and site/side marked as required. Patient was prepped and draped in the usual sterile fashion. Telma Brady NP PROCEDURE/MINOR SURG ICAL ORDERABLES [facility] POINT [facility] CARE documented in this encounter Visit Diagnoses Diagnosis Osteoarthritis of right patellofemoral joint- Primary Quadriceps weakness Muscle weakness (generalized) documented in this encounter Administered Medications Inactive Administered Medications - up to 3 most recent administrations Medication Order MAR Action Action Date Dose Rate Site BUPivacaine (PF) (MARCAINE) 0.5% injection 6 mL 6 mL, injection, Once PRN Procedure, 1 dose, Starting on Ava 05/04/23 at 0900, Until Ava 05/04/23 at 0900, Routine Given 05/04/2023 9:00 EDT 6 mL methylPREDNISolone ACETATE (DEPO-MEDROL) injection 80 mg 80 mg, intra-articular, Once PRN Procedure, 1 dose, Starting on Ava 05/04/23 at 0900, Until Ava 05/04/23 at 0900, Routine Given 05/04/2023 9:00 EDT 80 mg documented in this encounter Care Teams Spray Dyer Relationship Specialty Start Date End Date Ruth Munoz, APARTMENT MAINTENANCE WORKER [address] [place] [address] PCP - General 04/26/19 06/19/23 documented as of this encounter
--- OUTSIDE RECORDS SUMMARY | 2024-05-15 11:01 | XMS_ITS | Encounter Summary ---
Author Organization [facility] Address [address] [place] [address] Care Team Providers Care Grommet Machine Operator Name Role Phone Katia Haywood Primary Care Provider [phone] Reason for Visit * Reason Onset Date Comments Letter 07/05/2023 Encounter Details Date Type Department Care Team (Late st Contact Info) Description 07/05/2023 Telephone [facility] Total Joint Program - [address] [address] Telma Brady NP [address] [place] [address] Letter Social History Tobacco Use Types Packs/Day Years [...] Encounter - Christa Cancino MA - 07/05/2023 0948 EDT Appointment reminder letter mailed to pt per pt's request. documented in this encounter Plan of Treatment Upcoming Encounters Date Type Department Care Team (Late st Contact Info) Description 05/22/2024 10:00 EDT Office Visit [facility] Foot & Ankle Program - [address] [place] [address] Edwige Keller [address] [address] 07/18/2024 13:00 EDT Procedure visit [facility] Women's Services - [facility] [address] [place], [place] [phone] Jessica Murray NP 111 [facility], [facility], [address] [place] [phone] documented as of this encounter Visit Diagnoses Not on filedocumented in this encounter Care Teams Grommet Machine Operator Relationship Specialty Start Date End Date Katia Haywood [address] [place] [phone] PCP - General Family Medicine - Primary Care 06/20/23 documented as of this encounter
--- OUTSIDE RECORDS SUMMARY | 2024-05-15 11:01 | XMS_ITS | Encounter Summary ---
Author Organization [facility] Address [address] [place] [address] Care Team Providers Care Recruitment Officer Name Role Phone MunozAidanantony Mcelroy APRN Primary Care Provider + Reason for Visit * Reason Onset Date Comments Advice Only 07/05/2021 Encounter Details Date Type Department Care Team (Late st Contact Info) Description 07/05/2021 Telephone [facility] Women's Services - [facility] [address] [place], [place] [phone] Cici Barker NP 111 [facility] [address] [place] [address] Advice Only Social History Tobacco [...] encounter Miscellaneous Notes * Telephone Encounter - Polina Tinoco RN - 07/05/2021 1310 EDT Pt states in the past she was told she had a prolapsed uterus. She states that a couple of days ago she started noticing a bulge and pressure and she is uncomfortable. Pt not interested in a pessary. Pt has a colposcopy scheduled at the [facility] office next week. I recommended that she ask that they look to see if she truly has a prolapse. I scheduled her with Dr Rivera for a f/u in August. * Telephone Encounter - Arin Ruby - 07/05/2021 0941 EDT Pt is calling to discuss sx of feeling a lot of pressure where it feels like everything is going to fall out. Pt is also seen at the [facility]. Pt states, I am not sure if this is an issuefor them or not. Assured pt I am happy to send a message over to our RNing to discuss further. Pt has an appointment for COLPO next week, was inquiring about a sooner appointment but there is currently nothing sooner. Pt expresses concern of living 2 hours away which totals [address] and wanting to be seen. Pt can be reached at [phone] documented in this encounter Plan of Treatment Upcoming Encounters Date Type Department Care Team (Late st Contact Info) Description 05/22/2024 10:00 EDT Office Visit [facility] Foot & Ankle Program - [place] [address] [place] [address] [place] [address] Edwige Keller, DPLilibeth [address] [place] [address] 07/18/2024 13:00 EDT Procedure visit [facility] Women's Services - [facility] [address] [place], [place] [phone] Jessica Murray NP 111 [facility], [address] [place] [phone] documented as of this encounter Visit Diagnoses Not on filedocumented in this encounter Care Teams Recruitment Officer Relationship Specialty Start Date End Date Ruth Munoz APRN [address] [place] [phone] PCP - General 04/26/19 06/19/23 documented as of this encounter
--- OUTSIDE RECORDS SUMMARY | 2024-05-15 11:01 | XMS_ITS | Encounter Summary ---
Author Organization [facility] Address [address] [place] [address] Care Team Providers Care Therapeutic Consultant Name Role Phone Ruth Munoz APRN Primary Care Provider + Katia Haywood Primary Care Provider [phone] Encounter Details Date Type Department Care Team (Late st Contact Info) Description 09/24/2020 Lab Requisition [facility] Pathology & Laboratory Medicine - [facility] [address] [place], [place] [address] Outr Resulting Lab, Provider Social History Tobacco [...] [facility] - [address] [place] [address] Edwige Keller DPLilibeth [address] [place] [address] 07/18/2024 13:00 EDT Procedure visit [facility] Women's Services - [facility] [address] [place], [place] [phone] Jessica Murray NP 111 [facility], [facility] [address] [place] [address] documented as of this encounter Procedures Procedure Name Priority Date/Time Associated Diagnosis Comments FOLATE Routine 09/24/2020 17:04 EST documented in this encounter Results * FOLATE (09/24/2020 17:04 EST) Folate >24.0 See Note ng/mL 09/24/2020 22:30 EST [facility] Comment: Reference Ranges for Folate: Deficient: ?< 3.4 ng/mL Indeterminate: ??3.4 - 5.4 ng/mL Normal: ? > 5.4 ng/mL The results of this assay can be falsely elevated due to the consumption of Biotin. Blood VENOUS BLOOD / Unknown 09/24/2020 17:04 EST 09/24/2020 21:38 EST Provider Outr Resulting Lab CHEMISTRY & BLOOD GAS ORDERABLES [facility] [address] [place] [address] documented in this encounter Visit Diagnoses Not on filedocumented in this encounter Care Teams Therapeutic Consultant Relationship Specialty Start Date End Date Ruth Munoz, ENTRY LEVEL AUTOMOTIVE TECHNICIAN [address] [place] [address] PCP - General 04/26/19 06/19/23 Katia Haywood [address] [phone] PCP - General Family Medicine - Primary Care 06/20/23 documented as of this encounter
--- OUTSIDE RECORDS SUMMARY | 2024-05-15 11:01 | XMS_ITS | Encounter Summary ---
Author Organization [facility] Address [address] [place] [address] Care Team Providers Care Audio Experience Expert Name Role Phone AlexanderAidanantony Mcelroy APRN Primary Care Provider + Reason for Visit * Reason Onset Date Comments New Patient Visit 05/20/2021 Encounter Details Date Type Department Care Team (Late st Contact Info) Description 05/20/2021 Telephone [facility] Neurology - [address] [phone] Unknown, Doctor New Patient Visit Social History Tobacco Use Types Packs/Day Years [...] encounter Miscellaneous Notes * Telephone Encounter - Brittnee Beavers 05/20/2021 1035 EDT Spoke to Martha to schedule NPV with NM and she advised was seen yesterday in [place]. Declined appointment and asked to close the referral. documented in this encounter Plan of Treatment Upcoming Encounters Date Type Department Care Team (Late st Contact Info) Description 05/22/2024 10:00 EDT Office Visit [facility] Foot & Ankle Program - [address] [address] Edwige Keller DPM [address] [place] [address] 07/18/2024 13:00 EDT Procedure visit [facility] Women's Services - [facility] [address] [place], [place] [phone] Jessica Murray, POLO 111 [facility], [facility], [address] [place] [address] documented as of this encounter Visit Diagnoses Not on filedocumented in this encounter Care Teams Audio Experience Expert Relationship Specialty Start Date End Date Ruth Munoz APRN [address] [place] [phone] PCP - General 04/26/19 06/19/23 documented as of this encounter
--- OUTSIDE RECORDS SUMMARY | 2024-05-15 11:01 | XMS_ITS | Encounter Summary ---
Author Organization [facility] Address [address] [place] [address] Care Team Providers Care Assault Amphibious Vehicle Crewman Name Role Phone Ruth Munoz APRN Primary Care Provider + Katia Haywood Primary Care Provider [phone] Encounter Details Date Type Department Care Team (Late st Contact Info) Description 09/24/2020 Lab Requisition [facility] Pathology & Laboratory Medicine - [facility] [address] [place], [place] [address] Outr Resulting Lab, Provider Social History Tobacco [...] Info) Description 05/22/2024 10:00 EDT Office Visit [facility] Foot & Ankle Program - [address] [place] [address] Edwige Keller DPLilibeth [address] [place] [address] 07/18/2024 13:00 EDT Procedure visit [facility] Women's Services - [facility] [address] [place], [place] [phone] Jessica Murray NP 111 [facility], [address] [place] [address] documented as of this encounter Procedures Procedure Name Priority Date/Time Associated Diagnosis Comments PTH INTACT Routine 09/24/2020 17:04 EST documented in this encounter Results * PTH INTACT (09/24/2020 17:04 EST) Intact PTH 66 19 - 88 pg/mL 09/25/2020 10:17 EST [facility] Blood VENOUS BLOOD / Unknown 09/24/2020 17:04 EST 09/24/2020 21:41 EST Provider Outr Resulting Lab CHEMISTRY & BLOOD GAS ORDERABLES [facility] [address] [place] [address] documented in this encounter Visit Diagnoses Not on filedocumented in this encounter Care Teams Assault Amphibious Vehicle Crewman Relationship Specialty Start Date End Date Ruth Munoz, SOLE TIER [address] [place] [address] PCP - General 04/26/19 06/19/23 Katia Haywood [address] [place] [address] PCP - General Family Medicine - Primary Care 06/20/23 documented as of this encounter
--- OUTSIDE RECORDS SUMMARY | 2024-05-15 11:01 | XMS_ITS | Encounter Summary ---
Author Organization [facility] Address [address] [place] [address] Care Team Providers Care Group Tester Name Role Phone Ruth Munoz APRN Primary Care Provider + Reason for Referral * PT/OT/ST (Routine/Next Available) - Specialty Report Received Specialty Diagnoses / Procedures Referred By Patricio [email or web address] Referred To Contact Rehab Therapies Diagnoses Rectocele Chelsi Rivera MD 2 [facility] Office [facility], [address] [place] [phone] [facility] Re[facility]rap[facility] [address] [place] [phone] Referral ID Status Reason Start Date Expiration Date Visits Requested Visits Authorized [id number] Specialty Report Received Specialty Services Required 03/15/2023 1 1 Question Answer Reason for Request: cysto/rectocele Comments This referral may serve as a referral to occupational therapy if appropriate. Reason for Visit * Reason Comments Follow-up POP, would like to d iscuss options for treatment Encounter Details Date Type Department Care Team (Latest Contact Info) Description 03/15/2023 9:30 EDT Office Visit [facility] Pelvic Medicine and Reconstructive Surgery - Medical Office Building [facility] [address] [place] [address] Chelsi Rivera MD [address] [place] [address] Office Building, [address] [place] [address] Rectocele (Primary Dx); Weak urinary stream; Other female genital prolapse Social History Tobacco Use Types Packs/Day [...] a week. 42 g 11 03/15/2023 04/05/2024 documented in this encounter Progress Notes * Chelsi Rivera MD - 03/15/2023 0930 EDT [facility] FOLLOW-UP Patient: Martha Benoit is an 57 y.o. female seen for a follow-up regarding Follow-up (POP, would like to discuss options for treatment ). Has known cystocele and rectocele. Wants repair. Video Urodynamics 04/08/[address] Kaplan: Voiding dysfunction, normal capacity, decreased sensation. Recommended pt start PFPT, timed voiding and bowel regimen. Pt has not been able to f/u for PFPT. Current Outpatient Medications Medication ??? adalimumab (HUMIRA,CF, [...] Social History Socioeconomic History ??? Marital status: Tobacco Use ??? Smoking status: Never ??? Smokeless tobacco: Never Substance and Sexual Activity ??? Alcohol use: No ??? Sexual activity: Not Currently Review of Systems Pelvic pain: No Dyspareunia: No Recurrent UTI: No Hematuria: No Objective There were no vitals taken for this visit. Physical Exam Pelvic: Ext: no exophytic lesion; Vagina: stage 2-3 cystocele/rectocele, gaping vagina Assessment and Plan Martha Benoit is a 57 y.o., female with symptomatic prolapse, bowel and bladder dysfunction. Undiagnosed neurologic disorder followed at [facility]. Pt has had Video urodynamics with Dr. Kaplan. Case discussed with Dr. Whitley due to obstructive defecation symptoms. Will have pt see Dr. Whitley and start PFPT on same day Fiber information reviewed, recommend Benefiber. F/U after consult with Dr. Whitley to coordinate surgical repair.. Rx estradiol cream Chelsi Rivera MD I spent 40 minutes in [id number] discussion, counseling, and review anatomic diagrams etc. excluding time spent in the evaluation and management service. * Jazmyn Garrett RN - 03/15/2023 0930 EDT Patient Education Topic: Vaginal Estrogen Application Method: Handout, verbal Taught to: Patient Barriers: Patient hesitant that the cream will help with current symptoms. Outcomes: independent, needs practice and verbalized understanding Discussed with the patient that she should be applying every other night at bed time. Patient was hesitant that the cream will help. Provided education on what and how vaginal estrogen benefits the urethral and vaginal tissues. I was supervised by Dr. Rivera who was present and immediately available in the office suite. JAZMYN GARRETT RN 03/15/2023 10:47 documented in this encounter Plan of Treatment Upcoming Encounters Date Type Department Care Team (Late st Contact Info) Description 05/22/2024 10:00 EDT Office Visit [facility] Foot & Ankle Program - [address] [place] [address] Edwige Keller DPM [address] [place] [phone] 07/18/2024 13:00 EDT Procedure visit [facility] Women's Services - [address] [address] Jessica Murray NP 111 [facility], [facility], Level [address] [place] [address] Scheduled Referrals Name Type Priority Associated Diagnoses Order Schedule AMB CONS/FOLLOW UP PHYSICAL THERAPY Outpatient Referral Routine/Next Available Rectocele Expected: 06/15/2023 (Approximate), Expires: 03/15/2024 documented as of this encounter Visit Diagnoses Diagnosis Rectocele- Primary Weak urinary stream Slowing of urinary stream Other female genital prolapse documented in this encounter Discontinued Medications Medication Sig Discontinue Reason Start Date End Da te estradioL (ESTRACE) 0.01 % (0.1 mg/gram) vaginal cream Insert 1 gram vaginally 3 times weekly for 3 weeks. Stop 3 days prior to colposcopy. Start:05/30/22 End:06/20/22 Alternate therapy 03/28/2022 03/15/2023 documented as of this encounter Care Teams Group Tester Relationship Specialty Start Date End Date Ruth Munoz, FLAT KNITTER [address] [place] [address] PCP - General 04/26/19 06/19/23 documented as of this encounter
--- OUTSIDE RECORDS SUMMARY | 2024-05-15 11:01 | XMS_ITS | Encounter Summary ---
Author Organization [facility] Address [address] [place] [address] Care Team Providers Care Diesel Mechanic Construction Name Role Phone MunozRuth Lilibeth JUAREZ Primary Care Provider + Reason for Visit * Reason Onset Date Comments Results 06/29/2022 Encounter Details Date Type Department Care Team (Late st Contact Info) Description 06/29/2022 Telephone [facility] Women's Services - [address] [address] Katy Lubin MD [address] [place] [address], [facility] 4 [place] [address] Results Social History Tobacco Use [...] Telephone Encounter - Katy Lubin MD - 06/29/2022 1535 EDT Patient called with results and recommendations. Told same as previous - no dysplasia. Discussed options and she wants to have both pap and colpos every year because she does not want to travel twice. This year pap was not done but will plan pap/HPV and colpo next year. Final Diagnosis A. CERVIX, 6 AND 7 O'CLOCK, BIOPSY: - Transformation zone mucosa with atypical squamous metaplasia. See comment. ?? B. ENDOCERVIX, CURETTAGE: - Fragments of endocervical epithelium with no significant pathologic features. ?? C. VAGINA, RIGHT LATERAL WALL, BIOPSY: - Polypoid squamous mucosa with chronic inflammation and reactive changes. documented in this encounter Plan of Treatment Upcoming Encounters Date Type Department Care Team (Late st Contact Info) Description 05/22/2024 10:00 EDT Office Visit [facility] Foot & Ankle Program - [address] [place] [address] Edwige Keller DPM [address] [place] [phone] 07/18/2024 13:00 EDT Procedure visit [facility] Women's Services - [facility] [address] [place], [place] [phone] Jessica Murray NP 111 [facility], [facility], Level [address] [place] [address] documented as of this encounter Visit Diagnoses Not on filedocumented in this encounter Care Teams Diesel Mechanic Construction Relationship Specialty Start Date End Date Ruth Munzo APRN 4 [facility] [place] [address] PCP - General 04/26/19 06/19/23 documented as of this encounter
--- OUTSIDE RECORDS SUMMARY | 2024-05-15 11:01 | XMS_ITS | Encounter Summary ---
Author Organization [facility] Address [address] [place] [address] Care Team Providers Care Block Stacker Name Role Phone Katia Haywood Primary Care Provider [phone] Reason for Visit * Reason Onset Date Comments Surgery Scheduling 06/20/2023 Encounter Details Date Type Department Care Team (Late st Contact Info) Description 06/20/2023 Telephone [facility] Pelvic Medicine and Reconstructive Surgery - Medical Office Building [address] [address] Chelsi Rivera MD [address] [place] [address] Medical Office [facility], [address] [phone] Surgery Scheduling Social History Tobacco [...] * Telephone Encounter - Anny Payne - 06/20/2023 1316 EDT Pt is scheduled for surgery 11/16/[address] Chelsi Rivera MD PAT, Pre -op & POV's scheduled Per Surgeon case information: Case: Dr. Rivera: anterior colporrhaphy,cystoscopy Dr. Whitley: posterior colporrhaphy Pre-op with PCP: yes Pre-op/Consents with Surgeon: yes w/PA Labs: yes CBC/BMP per Dr Whitley EKG: no Urine culture: no POV: 4 weeks w/Dr. Rivera & Dr. Whitley on the same day. Special instructions/testing: documented in this encounter Plan of Treatment Upcoming Encounters Date Type Department Care Team (Late st Contact Info) Description 05/22/2024 10:00 EDT Office Visit [facility] Foot & Ankle Program - [address] [place] [address] Edwige Keller [address] [phone] 07/18/2024 13:00 EDT Procedure visit [facility] Women's Services - [facility] [address] [place], [place] [phone] Jessica Murray NP 111 [facility], [facility], Level [address] [place] [address] documented as of this encounter Visit Diagnoses Not on filedocumented in this encounter Care Teams Block Stacker Relationship Specialty Start Date End Date Katia [place] [address] [place] [phone] PCP - General Family Medicine - Primary Care 06/20/23 documented as of this encounter
--- OUTSIDE RECORDS SUMMARY | 2024-05-15 11:02 | XMS_ITS | Encounter Summary ---
Author Organization [facility] Address [address] [place] [address] Care Team Providers Care Dehorner Name Role Phone Ruth Munoz Lilibeth JUAREZ Primary Care Provider + Reason for Visit * Reason Onset Date Comments Medication Management 01/30/2020 Encounter Details Date Type Department Care Team (Late st Contact Info) Description 01/30/2020 Telephone [facility] Women's Services - [facility] [address] [place] [address] Angelica Butts RN Medication Management Social History Tobacco Use Types Packs/Day Years Used Date Smoking Tobacco: Never Smokeless Tobacco: Never Alcohol Use Standard Drinks/Week Comments No 0 (1 standard drink = 0.6 oz pur e alcohol) Sex and Gender Information Value Date Recorded [...] encounter Miscellaneous Notes * Telephone Encounter - Haily Hull RN - 01/30/2020 2614 EDT Received paperwork from Martha via fax. Mailed Medicaid Exemption form, and attending physician's statement (for the cruise) today. * Telephone Encounter - Haily Hull RN - 01/30/2020 0948 EDT Returned call to Martha. She reports she only got an additional 14 boric acid suppositories, insteadof the 6 month supply. A call to [facility] reveals that they received the 80 day prescription, but due to aninternal error, only sent 14 caps. They advised that they will reach out to Martha to remedy the situation. Martha also asked that we fill out some additional paperwork for her to be refunded for the cruise she cancelled. She will fax it to our office. I recommended that she also fax the Medicaid Coverage Exemption form, so we can submit the packet, in hopes that she will be able to get reimbursed for thecost of the boric acid that she has paid for out of pocket. Martha is not sure if she still has the form, or if she wants to complete it, but if she can find it, will fax back with the cruise paperwork. * Telephone Encounter - Angelica Butts RN - 01/30/2020 0920 EDT Call from pt. LOULOU had question r/t boric acidlength of time. Also, states missed a cruise and insurance needs more updated information.Asking for name of provider and fax number. documented in this encounter Plan of Treatment Upcoming Encounters Date Type Department Care Team (Late st Contact Info) Description 05/22/2024 10:00 EDT Office Visit [facility] Foot & Ankle Program - [address] [address] Edwige Keller DPM [address] [place] [phone] 07/18/2024 13:00 EDT Procedure visit [facility] Women's Services - [facility] [address] [place], [place] [address] Jessica Murray NP 111 [facility], [facility], Level [address] [place] [phone] documented as of this encounter Visit Diagnoses Not on filedocumented in this encounter Care Teams Dehorner Relationship Specialty Start Date End Date Ruth Munoz APRN [address] [place] [phone] PCP - General 04/26/19 06/19/23 documented as of this encounter
--- OUTSIDE RECORDS SUMMARY | 2024-05-15 11:02 | XMS_ITS | Encounter Summary ---
Author Organization [facility] Address [address] [place] [address] Care Team Providers Care Manager Social Responsibility Name Role Phone Ruth Munoz Lilibeth JUAREZ Primary Care Provider + Reason for Visit * Reason Onset Date Comments Pharmacy 12/27/2019 Encounter Details Date Type Department Care Team (Late st Contact Info) Description 12/27/2019 Telephone [facility] Women's Services [facility] [address] [place] [address] Angelica Butts, RN Pharmacy Social History Tobacco Use Types Packs/Day Years [...] Instructions Boric acid capsules [address] vaginally HS x 14 14 Each 12/27/2019 01/20/2020 documented in this encounter Miscellaneous Notes * Addendum Note - Cici Peters APRN - 12/27/2019 1412 ESTAddended by: CICI PETERS on: 12/27/2019 14:12 Modules accepted: Orders * Telephone Encounter - Angelica Butts RN - 12/27/2019 1034 EST Call to pharmacy. Spoke to pharmacist When states that she was calling to confirm that the prescription she received on December 24 was 4 boric acid vaginal capsules. Verbal given that the prescription is for boric acid vaginal capsules. documented in this encounter Plan of Treatment Upcoming Encounters Date Type Department Care Team (Late st Contact Info) Description 05/22/2024 10:00 EDT Office Visit [facility] Foot & Ankle Program - [address] [phone] Edwige Keller [address] [phone] 07/18/2024 13:00 EDT Procedure visit [facility] Women's Services - [facility] [address] [place], [place] [address] Jessica Murray NP 111 [facility], [address] [place] [address] documented as of this encounter Visit Diagnoses Not on filedocumented in this encounter Care Teams Manager Social Responsibility Relationship Specialty Start Date End Date Ruth Munoz, LABOR CREW SUPERVISOR [address] [place] [phone] PCP - General 04/26/19 06/19/23 documented as of this encounter
--- OUTSIDE RECORDS SUMMARY | 2024-05-15 11:02 | XMS_ITS | Encounter Summary ---
Author Organization [facility] Address [address] [place] [address] Care Team Providers Care Blend Technician Name Role Phone MunozRuth Lilibeth JUAREZ Primary Care Provider + Reason for Visit * Reason Onset Date Comments Results 12/25/2019 Encounter Details Date Type Department Care Team (Late st Contact Info) Description 12/25/2019 Telephone [facility] Women's Services [facility] [address] [place], [place] [address] Cici Barker NP 111 [facility], Level [address] [place] [address] Results Social History Tobacco Use [...] te Miscellaneous Medication - See Admin Instructions Place 600 mg vaginally at bedtime for 14 days. Please call patient when ready.[phone] 14 Each 12/25/2019 12/27/2019 documented in this encounter Miscellaneous Notes * Telephone Encounter - Cici Barker APRN - 12/25/2019 1620 EST TC. Kelly glabrata. Med Orders Placed This Visit and Additions to the Medication List Medications ??? Miscellaneous Medication - See Admin Instructions Sig: Place 600 mg vaginally at bedtime for 14 days. Please call patient when ready.[phone] Dispense: 14 Each Refill: 0 difficulty getting compounded medication as she would be leaving tomorrow to go to [place] for cruise; feels raw. Needs medical note to cancel trip and have insurance cover. Sent. documented in this encounter Plan of Treatment Upcoming Encounters Date Type Department Care Team (Late st Contact Info) Description 05/22/2024 10:00 EDT Office Visit [facility] Foot & Ankle Program - [address] [place] [address] Edwige Keller DPM [address] [place] [phone] 07/18/2024 13:00 EDT Procedure visit [facility] Women's Services - [facility] [address] [place], [place] [phone] Jessica Murray NP 111 [facility], [facility], [address] [place] [phone] documented as of this encounter Visit Diagnoses Not on filedocumented in this encounter Care Teams Blend Technician Relationship Specialty Start Date End Date Ruth Munoz APRN [address] [place] [address] PCP - General 04/26/19 06/19/23 documented as of this encounter
--- OUTSIDE RECORDS SUMMARY | 2024-05-15 11:02 | XMS_ITS | Encounter Summary ---
Author Organization [facility] Address [address] [place] [address] Care Team Providers Care Manager Software Development Name Role Phone Alexander Ruthantony Mcelroy APRN Primary Care Provider + Reason for Visit * Reason Onset Date Comments Biopsy Results 07/31/2019 Encounter Details Date Type Department Care Team (Late st Contact Info) Description 07/31/2019 Telephone [facility] Women's Services [facility] [address] [place], [place] [address] Jessica Murray NP 111 [facility], Level [address] [place] [address] Biopsy Results Social History Tobacco Use Types Packs/Day [...] encounter Miscellaneous Notes * Telephone Encounter - Jessica Murray NP - 08/01/2019 0832 EDT Telephone call to patient notifying her of cervix biopsy and right vaginal wall biopsy with reactive atypia and inflammation and her ECC was negative. 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 So we will schedule her for cotesting and colposcopy in 1 year. Added to tickler. documented in this encounter Plan of Treatment Upcoming Encounters Date Type Department Care Team (Late st Contact Info) Description 05/22/2024 10:00 EDT Office Visit [facility] Foot & Ankle Program - [address] [phone] Edwige Keller DPM [address] [place] [phone] 07/18/2024 13:00 EDT Procedure visit [facility] Women's Services - [facility] [address] [place], [place] [address] Jessica Murray NP 111 [facility], [facility], [address] [place] [address] documented as of this encounter Visit Diagnoses Not on filedocumented in this encounter Care Teams Manager Software Development Relationship Specialty Start Date End Date Ruth Munoz, BOWLING ALLEY REFINISHER 4 [facility] [place] [phone] PCP - General 04/26/19 06/19/23 documented as of this encounter
--- OUTSIDE RECORDS SUMMARY | 2024-05-15 11:02 | XMS_ITS | Encounter Summary ---
Author Organization [facility] Address [address] [place] [address] Care Team Providers Care Road Production General Manager Name Role Phone MunozRuth Lilibeth JUAREZ Primary Care Provider + Reason for Visit * Reason Onset Date Comments Results 12/20/2019 Encounter Details Date Type Department Care Team (Late st Contact Info) Description 12/20/2019 Telephone [facility] Women's Services [facility] [address] [place], [place] [address] Cici Barker NP 111 [facility], [address] [place] [address] Results Social History Tobacco Use [...] Dispensed Refills Start Date End Da te terconazole (TERAZOL 3) [address] 1 Suppository vaginally daily. For 6 nights 6 Suppository 12/20/2019 05/01/2020 metroNIDAZOLE (FLAGYL) 500 mg tablet Take 1 Tab by mouth 2 times daily for 7 days. 14 Tab 12/20/2019 12/27/2019 documented in this encounter Miscellaneous Notes * Telephone Encounter - Cici Barker APRN - 12/20/2019 0843 EST TC. Office Visit on 12/19/2019 Component Date Value Ref Range Status ??? Trichomonas Antigen 12/19/2019 Negative Negative Final ??? Scored Gram Smear 12/19/2019 Yeast present Unable to rule out the presence of bacterial vaginosis Final Since Diflucan does not appear to be effective, will try terconazole. Patient states has not been effective in past. Will try suppository and double dose. Will await yeast culture; also will treat possible BV. Med Orders Placed This Visit and Additions to the Medication List Medications ??? metroNIDAZOLE (FLAGYL) 500 mg tablet Sig: Take 1 Tab by mouth 2 times daily for 7 days. Dispense: 14 Tab Refill: 0 ??? terconazole (TERAZOL 3) 80 mg vaginal suppository Sig: Place 1 Suppository vaginally daily. For 6 nights Dispense: 6 Suppository Refill: 0 documented in this encounter Plan of Treatment Upcoming Encounters Date Type Department Care Team (Late st Contact Info) Description 05/22/2024 10:00 EDT Office Visit [facility] Foot & Ankle Program - [address] [place] [address] Edwige Keller DPM [address] [place] [phone] 07/18/2024 13:00 EDT Procedure visit [facility] Women's Services - [address] [phone] Jessica Murray, POLO 111 [facility], [address] [place] [address] documented as of this encounter Visit Diagnoses Not on filedocumented in this encounter Care Teams Road Production General Manager Relationship Specialty Start Date End Date Ruth Munoz APRN 4 [facility] [place] [address] PCP - General 04/26/19 06/19/23 documented as of this encounter
--- OUTSIDE RECORDS SUMMARY | 2024-05-15 11:02 | XMS_ITS | Encounter Summary ---
Author Organization [facility] Address [address] [place] [address] Care Team Providers Care Scale Tester Name Role Phone MunozRuth jerome Lilibeth JUAREZ Primary Care Provider + Reason for Visit * Reason Onset Date Comments Other 07/13/2020 Encounter Details Date Type Department Care Team (Late st Contact Info) Description 07/13/2020 Telephone [facility] ENT [address] [place] [address] Shola Vazquez MD [address] [place] [address] [address] [place] [address] Other Social History Tobacco Use Types Packs/Day [...] encounter Miscellaneous Notes * Telephone Encounter - Rere Sanders - 07/14/2020 0843 EDT Patient called again today for MRI results. She also says her left ear is still bothering her and wants to know if she should be seen again. documented in this encounter Plan of Treatment Upcoming Encounters Date Type Department Care Team (Late st Contact Info) Description 05/22/2024 10:00 EDT Office Visit [facility] Foot & Ankle Program - [address] [place] [address] Edwige Keller [address] [phone] 07/18/2024 13:00 EDT Procedure visit [facility] Women's Services - [facility] [address] [place], [place] [phone] Jessica Murray NP 111 [facility], [facility], [address] [place] [address] documented as of this encounter Visit Diagnoses Not on filedocumented in this encounter Care Teams Scale Tester Relationship Specialty Start Date End Date Ruth Munoz APRN [address] [place] [phone] PCP - General 04/26/19 06/19/23 documented as of this encounter
--- OUTSIDE RECORDS SUMMARY | 2024-05-15 11:02 | XMS_ITS | Encounter Summary ---
Author Organization [facility] Address [address] [place] [address] Care Team Providers Care Curb Setter Helper Name Role Phone MunozRuth jerome Lilibeth JUAREZ Primary Care Provider + Reason for Visit * Reason Onset Date Comments Medication Management 12/24/2019 Encounter Details Date Type Department Care Team (Late st Contact Info) Description 12/24/2019 Telephone [facility] Women's Services - [facility] [address] [place] [address] Angelica Butts, consumer science teacher Management Social History Tobacco Use Types Packs/Day [...] encounter Miscellaneous Notes * Telephone Encounter - Angelica Butts RN - 12/24/2019 1112 EST Call from pt. LM does have flagyl but still needs Terazole. * Telephone Encounter - Angelica Butts RN - 12/24/2019 0911 EST Call to patient. I spoke to patient. Patient states she is waiting to hear about picking up the Terazol. Patient did take the Diflucan. Patient also did not filler picker the Flagyl yet. Patient expressed some confusion over medication management. Informed patient that she needs to start on the Flagyl. Will check with pre-CERT specialist about the Terazol. Will let provider know also if there is an alternative if Terazol is not approved. * Telephone Encounter - Angelica Butts RN - 12/24/2019 0909 EST Call from patient. Left message was waiting to hear about the medication Terazol. documented in this encounter Plan of Treatment Upcoming Encounters Date Type Department Care Team (Late st Contact Info) Description 05/22/2024 10:00 EDT Office Visit [facility] Foot & Ankle Program - [address] [place], [place] [phone] Edwige Keller [address] [address] 07/18/2024 13:00 EDT Procedure visit [facility] Women's Services - [facility] [address] [place], [place] [address] Jessica Murray NP 111 [facility], [facility], [address] [place] [phone] documented as of this encounter Visit Diagnoses Not on filedocumented in this encounter Care Teams Curb Setter Helper Relationship Specialty Start Date End Date Ruth Munoz APRN [address] [place] [address] PCP - General 04/26/19 06/19/23 documented as of this encounter
--- OUTSIDE RECORDS SUMMARY | 2024-05-15 11:02 | XMS_ITS | Encounter Summary ---
Author Organization [facility] Address [address] [place] [address] Care Team Providers Care Mine Geologist Name Role Phone AlexanderAidanantony Mcelroy APRN Primary Care Provider + Reason for Visit * Reason Onset Date Comments Vaginitis 07/25/2019 Encounter Details Date Type Department Care Team (Late st Contact Info) Description 07/25/2019 Telephone [facility] Women's Services [facility] [address] [place], [place] [phone] Jessica Murray NP 111 [facility], [address] [place] [address] Vaginitis Social History Tobacco Use Types Packs/Day Years [...] Dispensed Refills Start Date End Da te fluconazole (DIFLUCAN) 150 mg tablet Take 1 Tab by mouth every 72 hours. 2 Tab 07/25/2019 05/01/2020 documented in this encounter Miscellaneous Notes * Telephone Encounter - Jessica Murray NP - 07/25/2019 1641 EDT Patient's Vagex swab came back positive for yeast and patient was symptomatic with vaginal itching.Will order Diflucan 150 mg orally x1 and repeat in 3 days per patient request. There is an interaction between the Diflucan and her Percocet however she says she has taken Diflucan many times before and has been on Percocet for years. She is willing to accept any risk. Will order the Diflucan. documented in this encounter Plan of Treatment Upcoming Encounters Date Type Department Care Team (Late st Contact Info) Description 05/22/2024 10:00 EDT Office Visit [facility] Foot & Ankle Program - [address] [address] Edwige Keller [address] [address] 07/18/2024 13:00 EDT Procedure visit [facility] Women's Services - [address] [phone] Jessica Murray NP 111 [facility], [address] [place] [address] documented as of this encounter Visit Diagnoses Not on filedocumented in this encounter Care Teams Mine Geologist Relationship Specialty Start Date End Date Ruth Munoz, LARRY [address] [facility] [place] [phone] PCP - General 04/26/19 06/19/23 documented as of this encounter
--- OUTSIDE RECORDS SUMMARY | 2024-05-15 11:02 | XMS_ITS | Encounter Summary ---
Author Organization [facility] Address [address] [place] [address] Care Team Providers Care Government Services Professional Name Role Phone MunozRuth jerome Lilibeth JUAREZ Primary Care Provider + Reason for Visit * Reason Comments Vaginitis Encounter Details Date Type Department Care Team (Late st Contact Info) Description 12/19/2019 13:00 EST Office Visit [facility] Women's Services - [address] [phone] Cici Barker NP 111 [facility], [address] [place] [address] Vaginal burning (Primary Dx) Social History Tobacco Use Types [...] Sign Reading Time Taken Comments Blood Pressure 104/62 12/19/2019 1310 EST Pulse - - Temperature - - Respiratory Rate - - Oxygen Saturation - - Inhaled Oxygen Concentration - - Weight 84.7 kg (186 lb 12.8 oz) 12/19/2019 1310 EST Height 160 cm (5' 2.99) 12/19/2019 1310 EST Body Mass Index 33.1 12/19/2019 1310 EST documented in this encounter Functional Status [...] mg tablet Take 1 Tab by mouth once for 1 dose. Take one tab. May repeat in 3-4 days if necessary. 6 Tab 12/19/2019 05/01/2020 documented in this encounter Progress Notes * Cici Barker, CLINICAL CARE MANAGER - 12/19/2019 1300 EST The Encounter on 12/19/2019 contained the following information Martha Benoit is a 54 y.o. female Chief Complaint Patient presents with ??? Vaginitis Subjective: Notes vaginal burning for at least 3-4 weeks, getting worse, 12/30, but she has used Diflucan twice 4-5 days apart and felt a little better initially, now sx have returned. She is planning a week cruise with family, but just discovered they plan to remain in [place] for another 2-3 weeks after the cruise. She is not sure that is best for her. Denies urinary symptoms, no abdominal or flank pain. No fever/chills. Environmental exposure: uses shampoo to wash genital area. Since Amber has used different shampoo that was a gift to her daughter. Laundry detergent is not clear or free of fragrance, etc, dryer sheets are also used. She does wear all cotton underwear. Patient Active Problem List Diagnosis Date Noted ??? Diabetes mellitus ([facility]) 08/11/2014 ??? Vitamin D deficiency 01/28/2010 ??? Morbid obesity ([facility]) 01/22/2010 ??? Mild dysplasia of cervix ([facility]) 06/26/200906/2009, LEEP - [facility] - neg margins, [...] bx, ECC, and right vaginal wall biopsy Past Medical History: Diagnosis Date ??? Unspecified cerebral artery occlusion with cerebral infarction Past Surgical History: Procedure Laterality Date ??? CERVIX LESION DESTRUCTION 07/15/2009 ??? GASTRIC BYPASS SURGERY 01/04/16 ??? LEEP 07/15/2009 ??? TUBAL LIGATION Family History Problem Relation Age of Onset ??? Colon Cancer Father ??? Diabetes Father ??? Stroke Father ??? Cervical Cancer Sister ??? Diabetes Sister ??? Heart Disease Sister [place] at age 42 = ??? Diabetes Mother ??? Diabetes Brother ??? Diabetes Maternal Aunt ??? Diabetes Maternal Uncle Social History Tobacco Use ??? Smoking status: Never Smoker ??? Smokeless tobacco: Never Used Substance Use Topics ??? Alcohol use: No ??? Drug use: Not on file Outpatient Encounter Medications as of 12/19/2019 Medication Sig Dispense Refill ??? baclofen (LIORESAL) 10 mg tablet Take 10 mg by mouth 4 times daily. ??? canagliflozin (INVOKANA) 300 mg tablet Take 300 mg by mouth daily. ??? ciclopirox (PENLAC) 8 % solution Apply to affected nails daily as instructed 1 Bottle 1 ??? cyanocobalamin, vitamin B-12, 500 mcg tablet, sublingual Place 1 Tab under the tongue daily. ??? ergocalciferol (VITAMIN D) 50,000 unit capsule Take 50,000 Units by mouth twice a week. ??? folic acid (FOLVITE) 1 mg tablet [...] mouth 3 times daily before meals. ??? nitroglycerin (RECTIV) 0.4 % (w/w) ointment [...] ABDOMEN TWO TIMES A DAYAS NEEDED No facility-administered encounter medications on file as of 12/19/2019. No Known Allergies O: pleasant, anxious, NAD General Ledger Bookkeeper declined. External genitalia: WNL, no fissures, lesions, hypopigmentation or erythema Vagina: Atrophic, dry, no discharge seen.- POCT VAGINAL WET PREP INCLUDES TEJA: Negative whiff, +WBC's, no yeast seen, >60% parabasal (atrophic epc) cells, no trich or clue cells seen. Cervix: WNL, non tender BP 104/62 Ht 160 cm (62.99) Wt 84.7 kg (186 lb 12.8 oz) BMI 33.10 kg/m?? Assessment & Plan: Vaginal burning, R/O yeast, possible atypical strains; BV, possible environmental irritant. Postmenopausal atrophy may be exacerbating irritation d/t products. - VAGINITIS EXAM; Future - FUNGUS CULTURE/SMEAR Reviewed vulvar skin care guidelines with written material given to avoid fragrance, irritation. Med Orders Placed This Visit (patient requests: she may be going on cruise and may be gone 4 weeks. ??? fluconazole (DIFLUCAN) 150 mg tablet Sig: Take 1 Tab by mouth once for 1 dose. Take one tab. May repeat in 3-4 days if necessary. Dispense: 6 Tab Refill: 0 Face to face encounter lasted 30 minutes; 20 minutes spent in counseling, teaching and coordinationof care ADD: 12/20/2019 TC. Office Visit on 12/19/2019 Component Date [...] 6 nights Dispense: 6 Suppository Refill: 0 * Karen Montero MA - 12/19/2019 1300 EST Patient reports burning on exterior of vagina and some slight itching No discharge changes No urinary siymptoms documented in this encounter Plan of Treatment Upcoming Encounters Date Type Department Care Team (Late st Contact Info) Description 05/22/2024 10:00 EDT Office Visit [facility] Foot & Ankle Program - [address] [place] [address] Edwige Keller DPM [address] [place] [phone] 07/18/2024 13:00 EDT Procedure visit [facility] Women's Services - [facility] [address] [place], [place] [address] Jessica Murray NP 111 [facility], [facility], [address] [place] [phone] documented as of this encounter Procedures Procedure Name Priority Date/Time Associated Diagnosis Comments ZZVAGINITIS EXAM Routine 12/19/2019 15:4 4 EST Vaginal burning FUNGUS CULTURE/SMEAR Routine 12/19/2019 15:44 EST Vaginal burning POCT VAGINAL WET PREP INCLUDES TEJA Routine 12/19/2019 14:00 EST Vaginal burning documented in this encounter Results * (ABNORMAL) FUNGUS CULTURE/SMEAR (12/19/2019 15:44 EST) Organism ID Few Kelly glabrata(A) 12/25/2019 12:45 EST [facility] Fungal Smear Few Budding Yeast(A) 12/25/2019 12:45 EST [facility] Swab ENTIRE VAGINA / Unknown Swab / Unknown 12/19/2019 15:44 EST 12/19/2019 17:49 EST Cici Barker NP MICROBIOLOGY - [facility] ORDERABLES [facility] [address] [place] [address] * VAGINITIS EXAM (12/19/2019 15:44 EST) Trichomonas Antigen Negative Negative 12/19/2019 22:12 EST [facility] Scored Gram Smear Yeast present Unable to rule out the presence of bacterial vaginosis 12/19/2019 22:12 EST [facility] Swab ENTIRE VAGINA / Unknown Swab / Unknown 12/19/2019 15:44 EST 12/19/2019 17:49 EST Cici Barker NP MICROBIOLOGY - [facility] ORDERABLES [facility] [address] [place] [id number] * (ABNORMAL) POCT VAGINAL WET PREP INCLUDES TEJA (12/19/2019 14:00 EST) Clue Cells, POC Absent Absent [facility] Trichomonas, POC Absent Absent [facility] Yeast, POC Absent Absent [facility] White Blood Cells, POC Present(A) Absent [facility] Other ENTIRE VAGINA / Unknown 12/19/2019 14:00 EST Cici Barker NP POINT OF CARE [facility] T ORDERABLES [facility] documented in this encounter Visit Diagnoses Diagnosis Vaginal burning- Primary Other specified symptom associated with female genital organs documented in this encounter Discontinued Medications Medication Sig Discontinue Reason Start Date End Da te hydrocortisone 1 % cream Apply topically to affected area 2 times daily as needed for Other (vaginal irritation) Therapy completed 05/07/2015 12/19/2019 documented as of this encounter Historical Medications * This list may reflect changes made after this encounter. Medication Sig Dispensed Refills Start Date End Date nystatin (MYCOSTATIN) powder 3 times daily as needed. 12/14/2019 pediatric multivitamin no.76 tablet,chewable Take 1 Tab by mouth. 02/13/2019 triamcinolone (KENALOG) 0.1 % ointment APPLY TOPICALLY TO ARMS LEGS AND ABDOMEN TWO TIMES A DAY NEEDED 05/01/2018 canagliflozin (INVOKANA) 300 mg tablet Take 1 Tablet by mouth daily. 02/05/2019 nitroglycerin 0.4 % (w/w) ointment Apply 1 application topically as needed. 03/05/2019 01/08/2024 cyanocobalamin, vitamin B-12, 500 mcg tablet, sublingual Place 1 Tab under the tongue daily. 06/18/2019 06/17/2020 added in this encounter Care Teams Government Services Professional Relationship Specialty Start Date End Date Ruth Munoz APRN [address] [place] [address] PCP - General 04/26/19 06/19/23 documented as of this encounter
--- OUTSIDE RECORDS SUMMARY | 2024-05-15 11:02 | XMS_ITS | Encounter Summary ---
Author Organization [facility] Address [address] [place] [address] Care Team Providers Care Consumer Product Advisor Name Role Phone Alexander Ruthantony Mcelroy APRN Primary Care Provider + Reason for Visit * Reason Onset Date Comments Appointment Related 01/31/2020 Encounter Details Date Type Department Care Team (Late st Contact Info) Description 01/31/2020 Telephone [facility] - [address] [phone] Edwige Keller, [address] [place] [address] Appointment Related Social History Tobacco [...] encounter Miscellaneous Notes * Telephone Encounter - Eren Chavez MA - 01/31/2020 1314 EDT Patient notified that appointment has been cancelled due to COVID-19 pandemic. Patient notified appointment will be a phone call from Dr Keller in [place] of an office visit. She has been given the podiatry email address to send a picture day of the call. documented in this encounter Plan of Treatment Upcoming Encounters Date Type Department Care Team (Late st Contact Info) Description 05/22/2024 10:00 EDT Office Visit [facility] - [address] [place], [place] [phone] Edwige Keller [address] [address] 07/18/2024 13:00 EDT Procedure visit [facility] Women[facility] - [facility] [address] [place], [place] [address] Jessica Murray NP [address] [facility], [facility], [address] [place] [address] documented as of this encounter Visit Diagnoses Not on filedocumented in this encounter Care Teams Consumer Product Advisor Relationship Specialty Start Date End Date Ruth Munoz APRN [address] [place] [phone] PCP - General 04/26/19 06/19/23 documented as of this encounter
--- OUTSIDE RECORDS SUMMARY | 2024-05-15 11:02 | XMS_ITS | Encounter Summary ---
Author Organization [facility] Address [address] [place] [address] Care Team Providers Care Slitting And Shipping Supervisor Name Role Phone Ruth Munoz APRN Primary Care Provider + Encounter Details Date Type Department Care Team (Late st Contact Info) Description 07/23/2019 Results Only [facility] Women's Services - [facility] [address] [place], [place] [address] Jessica Nixon NP 111 [facility], [address] [place] [address] Social History Tobacco Use Types Packs/Day Years [...] [facility] [address] [address] Edwige Keller DPLilibeth [address] [place] [address] 07/18/2024 13:00 EDT Procedure visit [facility] Women's Services - [facility] [address] [place] [address] Jessica Nixon NP 111 [facility], [address] [place] [address] documented as of this encounter Procedures Procedure Name Priority Date/Time Associated Diagnosis Comments SURGICAL PATHOLOGY Routine 07/23/2019 10 :46 EDT documented in this encounter Results * SURGICAL PATHOLOGY (07/23/2019 10:46 EDT) Pathology Report: SURGICAL PATHOLOGY REPORT Reports generated via electronic interface contain original data; however they are lacking the format of the original report. Caution should be taken when reading/interpret ing unformatted reports. Name: ? JO JONES ? Accession #: ? [id number] ? : ? 1965 (Age: 53) ??F ? Collect Date: ? 07/23/2019 ? Location: ? OBGYN ? Receive Date: ? 07/24/2019 ? Provider: JESSICA NIXON BRICK KILN BURNER Copy to: ? Final Pathologic Diagnosis: A. ENDOCERVIX, BIOPSY: - Rare benign endocervical glands and detached fragments of benign squamous epithelium. See comment. B. CERVIX, 8 O'CLOCK, BIOPSY: - Detached fragments of squamous mucosa with reactive atypia; background acute and chronic inflammation. C. VAGINAL WALL, RIGHT POSTERIOR, BIOPSY: - Squamous mucosa with reactive atypia; background acute and chronic inflammation. Comment: Deeper levels of A were examined. Document reviewed and electronically signed by: MEETA AKHTAR MD Report ??Date: 07/26/2019 13:34 By the signature above, the attending physician certifies that he/she has personally conducted a gross and/or microscopic examination of the described specimens and rendered or confirmed the above diagnosis. Specimen(s) Received: A. ?ECC B. ? Cervix 8 o'clock C. ? Right posterior vaginal wall Clinical History: NIL + HR HPV 2015, 2016 and 05/2019 with neg colpos in 2015 and 2016; clinical diagnosis code: R87.810 Gross Description: A. ?Received in formalin labelled with proper patient identification (initials P, J) and ECC is an aggregate of clear and russell brown viscous material (0.6 x 0.3 x 0.1 cm). Submitted entirely in A1. B. ?Received in formalin labelled with proper patient identification (initials P, J) and cervix into o'clock is an aggregate of clear viscous material (0.2 x 0.2 x 0.1 cm). Submitted entirely in B1. C. ?Received in formalin labelled with proper patient identification (initials P, J) and R posterior vag and are two russell-white vaginal lesions (0.2 x 0.1 x 0.1 cm and 0.3 x 0.2 x 0.1 cm). The specimens are submitted intact in C1. Letty Vargas 07/24/2019 11:00 AM End of Report [facility] 07/23/2019 10:4 6 EDT 07/24/2019 10:46 EDT Jessica Nixon NP PATHOLOGY ORDERABLES [facility] [address] [place] [address] documented in this encounter Visit Diagnoses Not on filedocumented in this encounter Care Teams Slitting And Shipping Supervisor Relationship Specialty Start Date End Date Ruth Munoz APRN [address] [place] [address] PCP - General 04/26/19 06/19/23 documented as of this encounter
--- OUTSIDE RECORDS SUMMARY | 2024-05-15 11:02 | XMS_ITS | Encounter Summary ---
Author Organization [facility] Address [address] [place] [address] Care Team Providers Care Turkey Pinner Name Role Phone MunozRuth jerome Lilibeth JUAREZ Primary Care Provider + Reason for Visit * Reason Onset Date Comments Medications Refill 02/28/2020 Encounter Details Date Type Department Care Team (Late st Contact Info) Description 02/28/2020 Telephone [facility] Women's Services - [facility] [address] [place] [address] Cathy Cook, RN Medications Refill Social History Tobacco Use Types [...] Telephone Encounter - Cathy Cook RN - 02/28/2020 2800 EDT Spoke with Martha; using boric acid 2 X per week, wants Rx for diflucan, she said to have on hand,currently only symptom is intermittent labial burning (better then previous), She denies itching & discharge--> sais she is ok to wait until Cici reviews request for Diflucan. Also discussed PA for Boric acid denied on 01/21/20 (per scan in [facility])---> advised I will reach out to Cici & see what her thoughts are this denial. Medication Refill Request Patient/Fax/Surescript Request Medication/Dose/Route/Frequency: fluconazole (DIFLUCAN) 150 mg tablet. Last sent by [facility] 12/19/19,1 tab, may repeat 3-4 day if necessary, disp 6 tabs Pt completely out: ? Last office visit: 12/19/19 ROESMARIE Barker Pending visit: 05/28/20 YRL w/ Vasile Carreon If appointment needed-message left/appointment made: n/a Pharmacy confirmed: Sent by [facility] in [place], [place] Amount filled/# of refills: pending review documented in this encounter Plan of Treatment Upcoming Encounters Date Type Department Care Team (Late st Contact Info) Description 05/22/2024 10:00 EDT Office Visit [facility] Foot & Ankle Program - [address] [place] [address] Edwige Keller DPM [address] [place] [address] 07/18/2024 13:00 EDT Procedure visit [facility] Women's Services - [facility] [address] [place] [address] Jessica Murray NP 111 [facility], [facility], [address] [place] [address] documented as of this encounter Visit Diagnoses Not on filedocumented in this encounter Care Teams Turkey Pinner Relationship Specialty Start Date End Date Ruth Munoz, LABORER TIN CAN [address] [place] [phone] PCP - General 04/26/19 06/19/23 documented as of this encounter
--- OUTSIDE RECORDS SUMMARY | 2024-05-15 11:02 | XMS_ITS | Encounter Summary ---
Author Organization [facility] Address [address] [place] [address] Care Team Providers Care Fleet Salesperson Name Role Phone Ruth Munoz APRN Primary Care Provider + Katia Haywood Primary Care Provider [phone] Encounter Details Date Type Department Care Team (Late st Contact Info) Description 02/04/2020 Lab Requisition [facility] Pathology & Laboratory Medicine - [facility] [address] [place] [address] Unknown, Provider, Social History Tobacco Use Types Packs/Day Years [facility] [address] [place] [address] Edwige Keller DPM [address] [place] [address] 07/18/2024 13:00 EDT Procedure visit [facility] Women's Services - [facility] [address] [place], [place] [phone] Jessica Murray NP 111 [facility], [facility], [address] [place] [address] documented as of this encounter Procedures Procedure Name Priority Date/Time Associated Diagnosis Comments VITAMIN B12 Routine 02/04/2020 11:38 EDT documented in this encounter Results * (ABNORMAL) VITAMIN B12 (02/04/2020 11:38 EDT) Vitamin B12 1,497(H) 211 - 911 pg/mL 02/05/2020 15:20 EDT [facility] Blood VENOUS BLOOD / Unknown 02/04/2020 11:38 EDT 02/04/2020 21:31 EDT Provider Unknown MD CHEMISTRY & BLOOD GA S ORDERABLES [facility] [address] [place] [address] documented in this encounter Visit Diagnoses Not on filedocumented in this encounter Care Teams Fleet Salesperson Relationship Specialty Start Date End Date Ruth Munoz APRN [address] [place] [address] PCP - General 04/26/19 06/19/23 Katia Haywood [address] [place] [address] PCP - General Family Medicine - Primary Care 06/20/23 documented as of this encounter
--- OUTSIDE RECORDS SUMMARY | 2024-05-15 11:02 | XMS_ITS | Encounter Summary ---
Author Organization [facility] Address [address] [place] [address] Care Team Providers Care Computer Consultant Name Role Phone AlexanderAidanantony Mcelroy APRN Primary Care Provider + Reason for Visit * Reason Onset Date Comments Follow-up 01/21/2020 Encounter Details Date Type Department Care Team (Late st Contact Info) Description 01/21/2020 Telephone [facility] - [facility] [address] [place] [address] Haily Hull RN [address] [place] [address] Follow-up Social History Tobacco Use Types Packs/Day [...] Telephone Encounter - Haily Hull RN - 01/21/2020 0955 EDT Notified Martha of long-term boric acid treatment. She will obtain from the pharmacy and start rightaway. ----- Message from Cici Barker APRN sent at 01/20/2020 16:55 EDT ----- Regarding: FW: recurrent c. glabrata Please let patient know I ordered this for her. N ----- Message ----- From: Lola Vargas MD Sent: 01/20/2020 16:45 EDT To: Cici Barker APRN Subject: RE: recurrent c. glabrata 14 days then 2x a week is what I use for 6 months. Lola ----- Message ----- From: Cici Barker APRN Sent: 01/20/2020 12:57 EDT To: Lola Vargas MD Subject: recurrent c. glabrata Hi Lola, This patient had documented glabrata early December. She felt better on 14 days of 600 mg boric acid crystals HS. Sx have returned, so I have renewed her script, and wonder about 3-6 months of suppressive therapy during this pandemic. Do you remember what is recommended? I think I may be able to dig up my last conference flash drive... Thanks, Cici documented in this encounter Plan of Treatment Upcoming Encounters Date Type Department Care Team (Late st Contact Info) Description 05/22/2024 10:00 EDT Office Visit [facility] Foot & Ankle Program - [address] [place] [address] Edwige Keller DPM [address] [place] [address] 07/18/2024 13:00 EDT Procedure visit [facility] Women's Services - [address] [address] Jessica Murray, POLO 111 [facility], [address] [place] [address] documented as of this encounter Visit Diagnoses Not on filedocumented in this encounter Care Teams Computer Consultant Relationship Specialty Start Date End Date Ruth Munoz APRN [address] [place] [address] PCP - General 04/26/19 06/19/23 documented as of this encounter
--- OUTSIDE RECORDS SUMMARY | 2024-05-15 11:02 | XMS_ITS | Encounter Summary ---
Author Organization [facility] Address [address] [place] [address] Care Team Providers Care Drone Pilot Name Role Phone Ruth Munoz APRN Primary Care Provider + Reason for Visit * Reason Comments New Patient Visit sounds/feels like th ere is fluid in LT ear. This began approx 1 yr ago. does not hurt constantly but varies different times of day especially when lying on Rt side. Seems that she can smell something from within her head/sinus' occassionaly. * Referral (Routine) - Closed Specialty Diagnoses / Procedures Referred By Patricio monsivais Referred To Contact Otolaryngology Diagnoses Ear fullness Ear pain, left Ruth Munoz, CNC FIELD SERVICE ENGINEER [address] [place] [address] Shola Vazquez MD [address] [place] [phone] Referral ID Status Reason Start Date Expiration Date Visits Re quested Visits Authorized [id number] Closed 1 1 Encounter Details Date Type Department Care Team (Latest Contact Info) Description 05/13/2020 13:40 EDT Office Visit [facility] ENT - [address] [address] Shola Vazquez MD [address] [place] [phone] Sensorineural hearing loss (SNHL) of left ear [...] have Coronavirus / COVID-19? No / Unsure 05/13/2020 13:01 EDT documented as of this encounter Last Filed Vital Signs Vital Sign Reading Time Taken Comments Blood Pressure 101/56 05/13/2020 1352 EDT Pulse 88 05/13/2020 1352 EDT Temperature - - Respiratory Rate - - Oxygen Saturation - - Inhaled Oxygen Concentration - - Weight 83.9 kg (185 lb) 05/13/2020 1352 EDT Height 160 cm (5' 3) 05/13/2020 1352 EDT Body Mass Index 32.77 05/13/2020 1352 EDT documented in this encounter Functional Status [...] as of this encounter Progress Notes * Shola Vazquez MD - 05/13/2020 1340 EDT This is a consult from Ruth Munoz for evaluation of left ear pain. Dear Colleagues: History of Present Illness: This is a 54-year-old female with a 1 to 2 year history of intermittentleft ear pain and fullness. It varies at different times of the day, especially when lying on the right side. Her symptoms are of mild to moderate severity. Denies tinnitus, vertigo or other ear symptoms. No history of head injury, meningitis, loud noise exposure, family history of hereditary hearing loss or ototoxic exposure. Past Medical History: Current medications include Humira, Invokana, Penlac solution, B12, vitamin D, Neurontin, Glucotrol, Humalog, Lidoderm, Glucophage, boric acid, Prilosec, Percocet, multivitamins. SHE HAS NO KNOWN DRUG ALLERGIES. Medical illness are significant for diabetes, mini stroke in 2006. Prior surgeries include cervix lesion destruction, gastric bypass, LEEP and tubal ligation. Family history is significant for diabetes, colon cancer, stroke, cervical cancer, heart disease. Social History: The patient is a nonsmoker. Review of Systems: Significant for weakness, numbness of the feet, ankle swelling, muscle, joint and back pain, left ear pain, psoriasis. Otherwise negative for a complete review of all systems. Physical Exam: General: Well-developed, well-nourished, alert, oriented, cooperative adult female in no acute distress. Normal voice. Vital Signs: Height 63 inches, weight 185, blood pressure 101/56,pulse 88. Pain level of 2. The face is normal without lesions. Facial strength is symmetric. Eye exam is normal. Ears: External ears are normal. Canals are clear. The tympanic membranes are normal, translucent and mobile. Normal binocular microscopy. An audiogram was performed which reveals mild bilateral high frequency sensorineural hearing loss, asymmetric in the higher frequencies especially at 4000 Hz in the left ear. SRTs are 5 dB in the right, 25 dB on the left, excellent word discriminati on and normal impedance with bilateral type A tympanograms. Nose: Nasal dorsum is midline, the airway is patent. Turbinates and mucosa within normal limits. Oral Cavity: Lips, tongue, floor of mouth,and buccal mucosa are normal. Posterior pharynx is clear. Neck: No pathologic lymphadenopathy. Trachea is midline. Thyroid is normal. Chest is clear to auscultation. Heart: Regular rate and rhythm. Impression: Left asymmetric sensorineural hearing loss and otalgia, unclear etiology. Rule out retrocochlear pathology. Plan: We will schedule MRI scan with gadolinium of the internal auditory canals. Follow up after above. The patient understands and agrees with the current plan. cc: Ruth Munoz documented in this encounter Plan of Treatment Upcoming Encounters Date Type Department Care Team (Late st Contact Info) Description 05/22/2024 10:00 EDT Office Visit [facility] Foot & Ankle Program - [address] [place] [address] Edwige Keller DPM [address] [place] [phone] 07/18/2024 13:00 EDT Procedure visit [facility] Women's Services - [facility] [address] [place], [place] [phone] Jessica Murray, POLO 111 [facility], [address] [place] [phone] documented as of this encounter Visit Diagnoses Diagnosis Sensorineural hearing loss (SNHL) of left ear with restricted hearing of right ear- Primary documented in this encounter Care Teams Drone Pilot Relationship Specialty Start Date End Date Ruth Munoz, LARRY [address] [facility] [place] [phone] PCP - General 04/26/19 06/19/23 documented as of this encounter
--- OUTSIDE RECORDS SUMMARY | 2024-05-15 11:02 | XMS_ITS | Encounter Summary ---
Author Organization [facility] Address [address] [place] [address] Care Team Providers Care Motor Bike Mechanic Name Role Phone MunozAidan jeromeantony Mcelroy APRN Primary Care Provider + Reason for Visit * Reason Onset Date Comments Appointment Related 05/19/2020 Encounter Details Date Type Department Care Team (Late st Contact Info) Description 05/19/2020 Telephone [facility] General Surgery - [address] [address] Shola Vazquez MD [address] [place] [phone] Appointment Related Social History Tobacco Use Types [...] 13:01 EDT documented as of this encounter Functional [...] encounter Miscellaneous Notes * Telephone Encounter - Fariha Pritchard - 05/19/2020 1652 EDT FYI. Patient has confirmed her MRI on 06/11/2020. This was their first available. documented in this encounter Plan of Treatment Upcoming Encounters Date Type Department Care Team (Late st Contact Info) Description 05/22/2024 10:00 EDT Office Visit [facility] Foot & Ankle Program - [address] [place] [address] Edwige Keller [address] [phone] 07/18/2024 13:00 EDT Procedure visit [facility] Women's Services - [facility] [address] [place], [place] [phone] Jessica Murray NP 111 [facility], [facility], [address] [place] [address] documented as of this encounter Visit Diagnoses Not on filedocumented in this encounter Care Teams Motor Bike Mechanic Relationship Specialty Start Date End Date Ruth Munoz APRN 4 [facility] [place] [phone] PCP - General 04/26/19 06/19/23 documented as of this encounter
--- OUTSIDE RECORDS SUMMARY | 2024-05-15 11:02 | XMS_ITS | Encounter Summary ---
Author Organization [facility] Address [address] [place] [address] Care Team Providers Care Filenet Admin Name Role Phone MunozRuth jerome Lilibeth JUAREZ Primary Care Provider + Encounter Details Date Type Department Care Team (Latest Contact Info) Description 07/08/2020 Travel Social History Tobacco Use Types Packs/Day [...] have Coronavirus / COVID-19? No / Unsure 07/08/2020 10:23 EDT documented as of this encounter Functional [...] Info) Description 05/22/2024 10:00 EDT Office Visit [facility] Foot & Ankle Program - [address] [place] [address] Edwige Keller DPM [address] [place] [phone] 07/18/2024 13:00 EDT Procedure visit [facility] Women's Services - [facility] [address] [place] [address] Jessica Murray NP 111 [facility], [facility], [address] [place] [address] documented as of this encounter Visit Diagnoses Not on filedocumented in this encounter Care Teams Filenet Admin Relationship Specialty Start Date End Date Ruth Munoz, MEAT PROCESSING CENTER MANAGER [address] [place] [phone] PCP - General 04/26/19 06/19/23 documented as of this encounter
--- OUTSIDE RECORDS SUMMARY | 2024-05-15 11:02 | XMS_ITS | Encounter Summary ---
Author Organization [facility] Address [address] [place] [address] Care Team Providers Care Calender Feeder Name Role Phone Ruth Munoz APRN Primary Care Provider + Encounter Details Date Type Department Care Team (Late st Contact Info) Description 07/24/2019 Orders Only [facility] Women's Services - [facility] [address] [place], [place] [phone] Jessica Murray NP 111 [facility], [address] [place] [address] Social History Tobacco Use Types [...] Medical Center Foot & Ankle Program - [address] [place] [address] Edwige Keller DPM [address] [place] [phone] 07/18/2024 13:00 EDT Procedure visit [facility] Women's Services - [facility] [address] [place] [address] Jessica Murray NP 111 [facility], [facility], [address] [place] [address] documented as of this encounter Visit Diagnoses Not on filedocumented in this encounter Care Teams Calender Feeder Relationship Specialty Start Date End Date Ruth Munoz, URGENT CARE [address] [place] [phone] PCP - General 04/26/19 06/19/23 documented as of this encounter
--- OUTSIDE RECORDS SUMMARY | 2024-05-15 11:02 | XMS_ITS | Encounter Summary ---
Author Organization [facility] Address [address] [place] [address] Care Team Providers Care Substation Electrician Name Role Phone MunozRuth jerome Lilibeth JUAREZ Primary Care Provider + Encounter Details Date Type Department Care Team (Latest Contact Info) Description 12/19/2019 Travel Social History Tobacco Use Types Packs/Day [...] [facility] Foot [facility] Ankle Program - [place] [address] [place] [address] [place] [address] Edwige Keller, CLAUS [address] [place] [address] 07/18/2024 13:00 EDT Procedure visit [facility] Women's Services - [facility] [address] [place], [place] [address] Jessica Murray NP [address] [facility], [address] [place] [phone] documented as of this encounter Visit Diagnoses Not on filedocumented in this encounter Care Teams Substation Electrician Relationship Specialty Start Date End Date Ruth Munoz APRN 4 [facility] [place] [phone] PCP - General 04/26/19 06/19/23 documented as of this encounter
--- OUTSIDE RECORDS SUMMARY | 2024-05-15 11:02 | XMS_ITS | Encounter Summary ---
Author Organization [facility] Address [address] [place] [address] Care Team Providers Care Expressive Music Therapist Name Role Phone Alexander Ruthantony Mcelroy APRN Primary Care Provider + Reason for Visit * Reason Comments Follow-up Encounter Details Date Type Department Care Team (Late st Contact Info) Description 02/25/2020 10:00 EDT Telemedicine [facility] Foot & Ankle Program - [address] [address] Edwige Keller, DP [address] [place] [address] Type 2 diabetes mellitus with diabetic polyneuropathy, with long-term current use of insulin ([facility]) (Primary Dx); Pre-ulcerative calluses Social History Tobacco Use Types Packs/Day Years [...] this encounter Progress Notes * Edwige Keller, CLAUS - 02/25/2020 1000 EDT Images from the original note were not included. Podiatry Telephone visit This visit was completed by phone. Edwige Mcelroy CLAUS Keller Date of conversation: 02/25/20 Patient phone number: Home Phone Work Phone I verified that I was speaking with the appropriate patient by confirming name and date of : 1965 The concept of ???Telemedicine?? has been described to the patient.? Patient has been informed of the anticipated benefits and possible risks.? Patient understands the information provided regardingtelemedicine, has had the opportunity to ask questions about this information, and all questions have been answered to patient???s satisfaction. Patient consents for the use of telemedicine in his/her medical care and authorizes the transmission of any relevant medical information to providers and their staff involved in patient???s medical or mental health care. I explained to the patient that if this discussion got disconnected we would return a call to the number listed above. If she did not receive a return call, she should call [phone]. She has not been seen in our office for the past 7 days. The patient is at home. I [facility] while connected to the patient's medial record in [employer] computer. Chief Complaint: No chief complaint on file. Past Medical History: Diagnosis Date ??? Unspecified cerebral artery occlusion with cerebral infarction Past Surgical History: Procedure Laterality Date ??? CERVIX LESION DESTRUCTION 07/15/2009 ??? GASTRIC BYPASS SURGERY 01/04/16 ??? LEEP 07/15/2009 ??? TUBAL LIGATION Current Outpatient Medications: baclofen (LIORESAL) 10 mg tablet canagliflozin (INVOKANA) 300 mg tablet ciclopirox (PENLAC) 8 % solution cyanocobalamin, vitamin B-12, 500 mcg tablet, sublingual ergocalciferol (VITAMIN D) 50,000 unit capsule fluconazole (DIFLUCAN) 150 mg tablet fluconazole (DIFLUCAN) 150 mg tablet folic acid (FOLVITE) 1 mg tablet furosemide (LASIX) 40 mg tablet gabapentin (NEURONTIN) 300 mg capsule glipiZIDE (GLUCOTROL) 10 mg tablet insulin lispro (HUMALOG) 100 unit/mL injection lidocaine 5 % (LIDODERM) 5 % patch metformin (GLUCOPHAGE) 500 mg tablet Miscellaneous Medication - See Admin Instructions Miscellaneous Medication - See Admin Instructions nitroglycerin (RECTIV) 0.4 % (w/w) ointment nystatin (MYCOSTATIN) powder omeprazole (PRILOSEC) 20 mg capsule oxyCODONE-acetaminophen (PERCOCET) 10-325 mg per tablet pediatric multivitamin no.76 tablet,chewable terconazole (TERAZOL 3) 80 mg vaginal suppository triamcinolone (KENALOG) 0.1 % ointment No current facility-administered medications for this visit. No Known Allergies HPI: Telemedicine visit performed with Ms. Benoit today due to COVID-19. She reports that she is doing well at home. She has not had any recurrence of the ulcer on her left heel. She does still have soreness here due to the fat pad atrophy after the ulceration, however. She has been padding around the area and wearing padded insoles and these helped. Review of systems: The patient denies nausea, vomiting, fever, chills. Data/Photos reviewed: Assessment: Encounter Diagnoses Name Primary? Type 2 diabetes mellitus with diabetic polyneuropathy, with long-term current use of insulin ([facility]) Yes ??? Pre-ulcerative calluses Plan: Ms. Benoit is doing well at home. No recurrence of the ulcer on her left heel. We discussed other ways to help with the pain in the left heel due to the fat pad loss here. These include padding,offloading insoles-both of which she is using. She did have questions about a fat transplant here, and we discussed that this is not done, though has been tried before without success. She is going to continue with the padding and close monitoring of the area. We will look at bringing her back intothe office in the next month or so. She would like to coordinate this with her sons visits to pain clinic here, as he is her ride, so does not wish to make the appointment just yet. She will call when she knows when his next appointment is, to coordinate coordinate the visit here if possible. She knows to call with any questions prior to follow-up and is happy with this plan. No orders of the defined types were placed in this encounter. This visit was conducted by telephone. I spent a total of15 minutes with Martha Benoit today and 15minutes of that time was spent in counseling and coordination of care as described in the progress note. Edwige Keller DPM 02/25/2020 documented in this encounter Plan of Treatment Upcoming Encounters Date Type Department Care Team (Late st Contact Info) Description 05/22/2024 10:00 EDT Office Visit [facility] Foot & Ankle Program - [address] [address] Edwige Keller DPM [address] [place] [phone] 07/18/2024 13:00 EDT Procedure visit [facility] Women's Services - [facility] [address] [place], [place] [phone] Jessica Murray NP [address] [facility], [facility], [address] [place] [address] documented as of this encounter Visit Diagnoses Diagnosis Type 2 diabetes mellitus with diabetic polyneuropathy, with long-term current use of insulin ([facility])- Primary Pre-ulcerative calluses Corns and callosities documented in this encounter Care Teams Expressive Music Therapist Relationship Specialty Start Date End Date Ruth Munoz APRN [address] [place] [phone] PCP - General 04/26/19 06/19/23 documented as of this encounter
--- OUTSIDE RECORDS SUMMARY | 2024-05-15 11:02 | XMS_ITS | Encounter Summary ---
Author Organization [facility] Address [address] [place] [address] Care Team Providers Care Solar Sales Estimator Name Role Phone MunozRuth jerome Lilibeth JUAREZ Primary Care Provider + Reason for Visit * Reason Onset Date Comments Other 05/25/2020 Encounter Details Date Type Department Care Team (Late st Contact Info) Description 05/25/2020 Telephone [facility] ENT - [place] [address] [place] [address] Shola Vazquez MD 130 [facility] [address] [place] [address] Other Social History Tobacco Use [...] encounter Miscellaneous Notes * Telephone Encounter - Thais Thomas RN - 05/28/2020 1424 EDT I spoke to to radha. I let her know that we can not change the appointment for her mri. I gave her the hospital phone number and told her to call the mri scheduling line to see if they could fit her in somewhere else. * Telephone Encounter - Yancy Keith RN - 05/25/2020 1222 EDT Left message for patient to return my call * Telephone Encounter - Mel Quesada - 05/25/2020 1210 EDT Pt called stating Yancy was going to try to work on rescheduling her 06/11 MRI appt. She is hoping this is in the works documented in this encounter Plan of Treatment Upcoming Encounters Date Type Department Care Team (Late st Contact Info) Description 05/22/2024 10:00 EDT Office Visit [facility] Foot & Ankle Program - [address] [place], [place] [phone] Edwige Keller DPM [address] [place] [address] 07/18/2024 13:00 EDT Procedure visit [facility] Women's Services - [facility] [address] [place], [place] [phone] Jessica Murray NP 111 [facility], [address] [place] [phone] documented as of this encounter Visit Diagnoses Not on filedocumented in this encounter Care Teams Solar Sales Estimator Relationship Specialty Start Date End Date Ruth Munoz APRN [address] [place] [phone] PCP - General 04/26/19 06/19/23 documented as of this encounter
--- OUTSIDE RECORDS SUMMARY | 2024-05-15 11:02 | XMS_ITS | Encounter Summary ---
Author Organization [facility] Address [address] [place] [address] Care Team Providers Care Permastone Applicator Name Role Phone Ruth Munoz APRN Primary Care Provider + Katia Haywood Primary Care Provider [phone] Encounter Details Date Type Department Care Team (Late st Contact Info) Description 02/04/2020 Lab Requisition [facility] Pathology & Laboratory Medicine - [facility] [address] [place] [address] Unknown, Provider, Social History Tobacco Use Types [facility] [address] [place] [address] Edwige Keller DPLilibeth [address] [place] [address] 07/18/2024 13:00 EDT Procedure visit [facility] Women's Services - [facility] [address] [place], [place] [phone] Jessica Murray NP 111 [facility], [facility], [address] [place] [address] documented as of this encounter Procedures Procedure Name Priority Date/Time Associated Diagnosis Comments VITAMIN D (25,OH) Routine 02/04/2020 11: 38 EDT documented in this encounter Results * (ABNORMAL) VITAMIN D (25,OH) (02/04/2020 11:38 EDT) 25OH Vitamin D Tot 28.1(L) 30.0 - 100.0 ng/mL 02/07/2020 12:32 EDT [facility] Comment: Vitamin D 25,OH Interpretive Ranges: Deficiency: ??<10.0 ng/mL Insufficiency: ??10.0 - 30.0 ng/mL Sufficiency: ??30.0 - 100.0 ng/mL Toxicity: ??>100.0 ng/mL Blood VENOUS BLOOD / Unknown 02/04/2020 11:38 EDT 02/04/2020 21:31 EDT Provider Unknown CHEMISTRY & BLOOD GA S ORDERABLES [facility] [address] [place] [address] documented in this encounter Visit Diagnoses Not on filedocumented in this encounter Care Teams Permastone Applicator Relationship Specialty Start Date End Date Ruth Munoz APRN [address] [place] [address] PCP - General 04/26/19 06/19/23 Katia Haywood [address] [address] PCP - General Family Medicine - Primary Care 06/20/23 documented as of this encounter
--- OUTSIDE RECORDS SUMMARY | 2024-05-15 11:02 | XMS_ITS | Encounter Summary ---
Author Organization [facility] Address [address] [place] [address] Care Team Providers Care Supervisor Plastics Name Role Phone Ruth Munoz Lilibeth CONSULTANT IN ERGONOMICS AND SAFETY Primary Care Provider + Reason for Visit * Reason Onset Date Comments Prior Auth, Medication 01/21/2020 Encounter Details Date Type Department Care Team (Late st Contact Info) Description 01/21/[address] [facility] Women's Services - [facility] [address] [place], [place] [phone] Cathy Cook RN Prior Auth, Medication Social History Tobacco Use Types Packs/Day Years [...] Telephone Encounter - Cici Barker APRN - 01/22/2020 0912 EDT She has vaginal marisel glabrata. There are no non compounded medications approved or effective forthis infection. It can cause severe vulvar skin itching and subsequent breakdown due to scratching which leads to bacterial infection, which in a diabetic can lead to sepsis, needing several antibiotics, sometimes intravenous, which could require a visit to the emergency room which during a pandemic could lead to Covid-19 infection and . * Telephone Encounter - Cici Barker APRN - 01/22/2020 0906 ED[address] I see that Dr. Vargas may be in the office and is willing to sign the prior authorization for this. * Telephone Encounter - Haily Hull RN - 01/21/2020 1451 EDT Returned call to Martha. Advised that PA has been denied because boric acid [place]. Will complete an exception to coverage form. One page needs to be completed by the patient. She asked that the form be mailed to her PO [address], and I placed it in the outgoing mail today. Asked her to scan and email to me, or mail back to the office. Advised that she cone picker the 14 day course of boric acid today and pay out of pocket, and we will attempt to get an exception to coverage for the 6 month course. * Telephone Encounter - Cathy Cook RN - 01/21/2020 1410 EDT Martha LVM: RTC from nurse re: PA for medication, would like to cone picker med today. NOTE: PA for Boric acid denied, sent to Dr. Vargas & Cici Barker. documented in this encounter Plan of Treatment Upcoming Encounters Date Type Department Care Team (Late st Contact Info) Description 05/22/2024 10:00 EDT Office Visit [facility] Foot & Ankle Program - [address] [place] [address] Edwige Keller DPM [address] [place] [phone] 07/18/2024 13:00 EDT Procedure visit [facility] Women's Services - [facility] [address] [place] [address] Jesscia Murray NP 111 [facility], [facility], [address] [place] [address] documented as of this encounter Visit Diagnoses Not on filedocumented in this encounter Care Teams Supervisor Plastics Relationship Specialty Start Date End Date Ruth Munoz APRN [address] [place] [phone] PCP - General 04/26/19 06/19/23 documented as of this encounter
--- OUTSIDE RECORDS SUMMARY | 2024-05-15 11:02 | XMS_ITS | Encounter Summary ---
Author Organization [facility] Address [address] [place] [address] Care Team Providers Care Ventilated Rib Fitter Name Role Phone MunozAidanantony Mcelroy APRN Primary Care Provider + Reason for Visit * Reason Onset Date Comments Results 07/13/2020 Encounter Details Date Type Department Care Team (Late st Contact Info) Description 07/13/[address] [facility] General Surgery [address] [place] [address] Kelly Mesa MD [address] [place] [address] [address] [place] [address] Results Social History Tobacco Use Types Packs/Day [...] encounter Miscellaneous Notes * Telephone Encounter - Mel Quesada - 07/22/2020 0951 EDT Pt called back, appt scheduled by Rufina * Telephone Encounter - Mel Quesada - 07/15/2020 1337 EDT Pt will call me back, she was in her car driving * Telephone Encounter - Yancy Keith RN - 07/15/2020 0850 EDT Spoke with patient. Would like to come back to follow up. Would prefer appt not on . * Telephone Encounter - Rere Sanders - 07/13/2020 1112 EDT Hello - Patient had tests last week and would like to know the reaults. Thanks! Rere documented in this encounter Plan of Treatment Upcoming Encounters Date Type Department Care Team (Late st Contact Info) Description 05/22/2024 10:[address] [facility] Foot & Ankle Program - [facility] [place] [place] [address] Edwige Keller DPM [address] [place] [phone] 07/18/2024 13:[address] [facility] Women's Services - [address] [phone] Jessica Murray, POLO 111 [facility], [facility], [address] [place] [address] documented as of this encounter Visit Diagnoses Not on filedocumented in this encounter Care Teams Ventilated Rib Fitter Relationship Specialty Start Date End Date Ruth Munoz APRN 4 [facility] [place] [phone] PCP - General 04/26/19 06/19/23 documented as of this encounter
--- OUTSIDE RECORDS SUMMARY | 2024-05-15 11:02 | XMS_ITS | Encounter Summary ---
Author Organization [facility] Address [address] [place] [address] Care Team Providers Care Medical Housekeeper Name Role Phone Alexander Ruthantony Mcelroy APRN Primary Care Provider + Reason for Visit * Reason Comments Foot Pain Lt Encounter Details Date Type Department Care Team (Late st Contact Info) Description 08/09/2019 9:00 EDT Office Visit [facility] Foot & Ankle Program - [address] [address] Edwige Keller, DP [address] [place] [address] Ulcer of foot, left, limited to breakdown of skin ([facility]) (Primary Dx); Type 2 diabetes mellitus with diabetic polyneuropathy, with long-term current use of insulin ([facility]) Social History Tobacco Use Types [...] of this encounter Progress Notes * Edwige Keller - 08/09/2019 0900 EDT Martha Benoit is a very pleasant 53 y.o. female patient who presents for follow up chronic left heel ulcer. She believes this has been been doing well. VNA has been coming once a week, and she has been changing it the other days. She has not noticed any drainage on the dressing. She denies any painin the foot. Overall she is feeling well today. Patient Active Problem List Diagnosis Date Noted ??? Diabetes mellitus ([facility]) 08/11/2014 Priority: Medium ??? Vitamin D deficiency 01/28/2010 ??? Morbid obesity ([facility]) 01/22/2010 ??? Mild dysplasia of cervix [...] ??? Diabetes Sister ??? Heart Disease Sister [place] at age 42 = ??? Diabetes Mother ??? Diabetes Brother ??? Diabetes Maternal Aunt ??? Diabetes Maternal Uncle Current Outpatient Medications Medication Sig Dispense Refill ??? baclofen (LIORESAL) 10 mg tablet Take 10 mg by mouth 4 times daily. ??? ciclopirox (PENLAC) 8 % solution Apply to affected nails daily as instructed 1 Bottle 1 ??? ergocalciferol (VITAMIN D) 50,000 unit capsule Take 50,000 Units by mouth twice a week. ??? fluconazole (DIFLUCAN) 150 mg [...] mg by mouth 2 times daily. ??? hydrocortisone 1 % cream Apply topically to affected area 2 times daily as needed for Other (vaginal irritation) 1 Tube 1 ??? insulin lispro (HUMALOG) 100 unit/mL injection Inject 15 Units into the skin 2 times daily. ??? lidocaine 5 % (LIDODERM) 5 % patch Place 1 Patch onto the skin daily. ??? metformin (GLUCOPHAGE) 500 mg tablet Take 500 mg by mouth 3 times daily before meals. ??? omeprazole (PRILOSEC) 20 mg capsule Take 20 mg by mouth daily. ??? oxyCODONE-acetaminophen (PERCOCET) 10-325 mg per tablet Take 1 Tab by mouth every 4 hours as needed for Pain. Takes 5 tabs daily No current facility-administered medications for this visit. [...] less than 3 seconds to all toes. ??Second toenail avulsed. ??Well healed. ?Right great toenail well adhered to the nailbed. ??Mild thickening and discoloration distally. ??No erythema or edema. ??Ulcer plantar central left heel- healed. Mild overlying and surrounding hyperkeratotic tissue. No probing. No pain. No erythema or edema. No fluctuace. ??No other open lesions. ??Protective sensation absent. ??Unable to assess manual muscle testing on the left. ??Psoriatic plaques to both lower legs. ?? ASSESSMENT: 1. Ulcer of foot, left, limited to breakdown of skin ([facility]) 2. Type 2 diabetes mellitus with diabetic polyneuropathy, with long-term current use of insulin ([facility]) No orders of the defined types were placed in this encounter. PLAN: Ms. Benoit presents today for follow-up chronic left plantar central heel ulcer. This remains healed. I lightly pared down some overlying hyperkeratotic skin. No underlying open areas. No signs of infection. At this point, she is going to continue with a padded dressing to the area daily, and to allow it to air out at night. I gave her some lotion with light urea cream in it to apply at night to prevent this from building up as quickly. We can discontinue the VNA services, as this has healed. I am going to see her back in 2 months for follow-up. She is going to try to coordinate this with her sons appointments in [place], as it is very difficult for her to get transportation here. I advised her to call in asked to speak to Eren if she does need to change her follow-up appointment. She knows to call with any questions prior to follow-up and is happy with this plan. Instructions for VNA: Discontinue services. Wound has healed. Portions of this document have been prepared with speech recognition software or keyboard data integration analyst techniques. Minor irregularities or keyboarding misprints may be present documented in this encounter Plan of Treatment Upcoming Encounters Date Type Department Care Team (Late st Contact Info) Description 05/22/2024 10:00 EDT Office Visit [facility] Foot & Ankle Program - [address] [place] [address] Edwige Keller, [address] [phone] 07/18/2024 13:00 EDT Procedure visit [facility] Women's Services - [facility] [address] [place] [address] Jessica Murray NP 111 [facility], [facility], [address] [place] [phone] documented as of this encounter Visit Diagnoses Diagnosis Ulcer of foot, left, limited to breakdown of skin ([facility])- Primary Type 2 diabetes mellitus with diabetic polyneuropathy, with long-term current use of insulin ([facility]) documented in this encounter Care Teams Medical Housekeeper Relationship Specialty Start Date End Date Ruth Munoz, LARRY [address] [place] [phone] PCP - General 04/26/19 06/19/23 documented as of this encounter
--- OUTSIDE RECORDS SUMMARY | 2024-05-15 11:02 | XMS_ITS | Encounter Summary ---
Author Organization [facility] Address [address] [place] [address] Care Team Providers Care Rail Layer Name Role Phone MunozRuth jerome Lilibeth JUAREZ Primary Care Provider + Reason for Visit * Reason Onset Date Comments Other 06/05/2020 Encounter Details Date Type Department Care Team (Late st Contact Info) Description 06/05/2020 Telephone [facility] ENT - [place] [address] [place] [address] Shola Vazquez MD [address] [place] [address] [address] [place] [address] Other Social History Tobacco Use [...] encounter Miscellaneous Notes * Telephone Encounter - Yancy Keith RN - 06/05/2020 1238 EDT Spoke with patient she is complaining of a new smell in her nose and is questioning if she could have a sinus infection. She also is having what feels like drainage in her ear with otalgia. I recommend her to follow up with her primary. At her last visit with Dr. Vazquez she did not have an infection.She will check with her pcp and follow up after her MRI. * Telephone Encounter - Fariha Pritchard - 06/05/2020 1147 EDT Patient is calling to ask if she can get some antibiotics. She feels like her sinuses are draining in to her ear. Patient is also calling in regards to her MRI. She is not able to go on 06/11/2020 andis very disappointed. I have rescheduled her on 06/18/2020 @ 6:45pm. She has confirmed this appointment. Please call her at [phone]. documented in this encounter Plan of Treatment Upcoming Encounters Date Type Department Care Team (Late st Contact Info) Description 05/22/2024 10:00 EDT Office Visit [facility] Foot & Ankle Program - [address] [place] [address] Edwige Keller DPM [address] [place] [phone] 07/18/2024 13:00 EDT Procedure visit [facility] Women's Services - [address] [phone] Jessica Murray, POLO 111 [facility], [address] [place] [address] documented as of this encounter Visit Diagnoses Not on filedocumented in this encounter Care Teams Rail Layer Relationship Specialty Start Date End Date Ruth Munoz APRN 4 [facility] [address] PCP - General 04/26/19 06/19/23 documented as of this encounter
--- OUTSIDE RECORDS SUMMARY | 2024-05-15 11:02 | XMS_ITS | Encounter Summary ---
Author Organization [facility] Address [address] [place] [address] Care Team Providers Care Construction Superintendent Name Role Phone MunozRuth Lilibeth JUAREZ Primary Care Provider + Reason for Visit * Reason Onset Date Comments Vaginitis 01/20/2020 Encounter Details Date Type Department Care Team (Late st Contact Info) Description 01/20/2020 Telephone [facility] [address] [place] [address] Haily Hull, BRENDAN [address] [place] [address] Vaginitis Social History Tobacco Use Types Packs/Day [...] patient when ready. 14 Each 01/20/2020 01/18/2024 documented in this encounter Miscellaneous Notes * Telephone Encounter - Cici Barker APRN - 01/21/2020 1143 EDT I will check with Elisa. * Telephone Encounter - Haily Hull RN - 01/20/2020 1540 EDT Returned call to Martha. Advised that she use the 14 days of boric acid as instructed. No additionalcreams at this time. She will await a call from Cici Barker regarding long-term treatment. She wouldprefer a medication that will be covered by her medicaid. * Telephone Encounter - Cici Barker APRN - 01/20/2020 1532 EDT No cream. I have a note in to Dr. Vargas to consider suppressive therapy..will order when I hear. That therapy may be 3-6 months. * Telephone Encounter - Cici Barker APRN - 01/20/2020 1252 EDT Yes, can renew boric acid HS x 14 days. Then may need to use once or twice weekly for a while to keep it away. I will research or check with Dr. Vargas for recent research. Med Orders Placed This Visit and Additions to the Medication List Medications ??? Miscellaneous Medication - See Admin Instructions Sig: Boric acid capsules [address] one capsule vaginally HS x 14 days. Call patient when ready. Dispense: 14 Each Refill: 0 to [facility] * Telephone Encounter - Haily Hull RN - 01/20/2020 1031 EDT Message from Martha reporting symptoms have returned after treatment. Returned call to Martha, who reports that her symptoms resolved during treatment, but now that she has completed the course of treatment a few days ago, the burning feeling is coming back. documented in this encounter Plan of Treatment Upcoming Encounters Date Type Department Care Team (Late st Contact Info) Description 05/22/2024 10:[address] [facility] Foot & Ankle Program - [facility] [address] [place] [address] Edwige Keller DP [address] [place] [address] 07/18/2024 13:[address] [facility] Women's Services - [facility] [address] [place], [place] [phone] Jessica Murray NP 111 [facility], [address] [place] [phone] documented as of this encounter Visit Diagnoses Not on filedocumented in this encounter Discontinued Medications Medication Sig Discontinue Reason Start Date End Da te Miscellaneous Medication - See Admin Instructions Boric acid capsules [address] vaginally HS x 14 12/27/2019 01/20/2020 documented as of this encounter Care Teams Construction Superintendent Relationship Specialty Start Date End Date Ruth Munoz, PUBLIC SPEAKER [address] [place] [phone] PCP - General 04/26/19 06/19/23 documented as of this encounter
--- OUTSIDE RECORDS SUMMARY | 2024-05-15 11:02 | XMS_ITS | Encounter Summary ---
Author Organization [facility] Address [address] [place] [address] Care Team Providers Care Launch Leader Name Role Phone Alexander Ruthantony Mcelroy APRN Primary Care Provider + Encounter Details Date Type Department Care Team (Late st Contact Info) Description 07/24/2019 11:53 EDT - 07/24/2019 23:59 EDT Hospital Encounter [address] [address] Jessica Murray NP 111 [facility], [facility] [address] [place] [phone] Discharge Disposition: Home or Self Care Social [...] 03/11/2016 documented as of this encounter Discharge Diagnoses Diagnosis N89.8 Other specified noninflammatory disorders of vagina-N89.8[ICD-10-CM] documented in this encounter Medications at Time of Discharge Medication Sig Dispensed Refills Start Date End Date baclofen (LIORESAL) 10 mg tablet Take 1 Tablet by mouth 4 times daily. canagliflozin (INVOKANA) 300 mg tablet Take 1 Tablet by mouth daily. 02/05/2019 ciclopirox (PENLAC) 8 % solution Apply to affected nails daily as instructed 1 Bottle 1 06/14/2019 ergocalciferol (DRISDOL; VITAMIN D2) 1,250 mcg (50,000 unit) capsule Take 1 Capsule by mouth once a week. furosemide (LASIX) 40 mg tablet Take 40 mg by mouth daily. Reported on 03/13/2017 gabapentin (NEURONTIN) 300 mg capsule Take 1 Capsule by mouth 2 times daily. glipiZIDE (GLUCOTROL) 10 mg tablet Take 1 Tablet by mouth 2 times daily. insulin lispro (HUMALOG) 100 unit/mL injectionIndications:pe r patient insulin called 70/30 Inject into the skin 3 times daily. Sliding scale lidocaine 5 % (LIDODERM) 5 % patch Place 1 Patch onto the skin daily. metformin (GLUCOPHAGE) 500 mg tablet Take 1 Tablet by mouth 3 times daily before meals. omeprazole (PRILOSEC) 20 mg capsule Take 1 Capsule by mouth daily. oxyCODONE-acetaminophen (PERCOCET) 10-325 mg per tablet Take 1 Tablet by mouth every 4 hours as needed for Pain. Takes 5 tabs daily pediatric multivitamin no.76 tablet,chewable Take 1 Tab by mouth. 02/13/2019 triamcinolone (KENALOG) 0.1 % ointment APPLY TOPICALLY TO ARMS LEGS AND ABDOMEN TWO TIMES A DAY NEEDED 05/01/2018 cyanocobalamin, vitamin B-12, 500 mcg tablet, sublingual Place 1 Tab under the tongue daily. 06/18/2019 06/17/2020 estradiol (ESTRACE) 0.01 % (0.1 mg/gram) vaginal cream Place 1 g vaginally three times a week for 21 days. Do not use for 2 days prior to your colposcopy 1 Tube 06/21/2019 03/28/2022 folic acid (FOLVITE) 1 mg tablet Take 1 mg by mouth daily. Reported on 03/13/2017 01/08/2024 hydrocortisone 1 % cream Apply topically to affected area 2 times daily as needed for Other (vaginal irritation) 1 Tube 1 05/07/2015 12/19/2019 nitroglycerin 0.4 % (w/w) ointment Apply 1 application topically as needed. 03/05/2019 01/08/2024 documented as of this encounter Discharge Disposition Disposition Code Departure Means Destination Home or Self Care documented in this encounter Plan of Treatment Upcoming Encounters Date Type Department Care Team (Late st Contact Info) Description 05/22/2024 10:00 EDT Office Visit [facility] Foot & Ankle Program - [address] [place] [address] Edwige Keller [address] [phone] 07/18/2024 13:00 EDT Procedure visit [facility] Women's Services - [facility] [address] [place], [place] [phone] Jessica Murray NP 111 [facility], [facility], [address] [place] [phone] documented as of this encounter Visit Diagnoses Not on filedocumented in this encounter Care Teams Launch Leader Relationship Specialty Start Date End Date Ruth Munoz APRN 4 [facility] [place] [place] [phone] PCP - General 04/26/19 06/19/23 documented as of this encounter
--- OUTSIDE RECORDS SUMMARY | 2024-05-15 11:02 | XMS_ITS | Encounter Summary ---
Author Organization [facility] Address [address] [place] [address] Care Team Providers Care Sheet Metal Worker Name Role Phone Ruth Munoz APRN Primary Care Provider + Reason for Visit * Reason Comments Foot Problem Encounter Details Date Type Department Care Team (Late st Contact Info) Description 12/04/2019 11:30 EST Office Visit [facility] Foot & Ankle Program - [address] [address] Edwige Keller, DP [address] [place] [address] Skin ulcer of left foot, limited to breakdown of skin ([facility]) (Primary Dx); Type 2 diabetes mellitus with diabetic polyneuropathy, with long-term current use of insulin ([facility]) Social History Tobacco Use Types Packs/Day Years [...] Progress Notes * Edwige Keller, DPM - 12/04/2019 1130 EST Martha Benoit is a very pleasant 54 y.o. female patient who presents for follow up chronic left heel ulcer. She reports that she has not noticed any opening of the skin here. She did about 2 weeks ago have a small spot of blood on her padding, but was not able to appreciate any open areas here. Shehas not noticed any bleeding since. She has some discomfort when she does not wear the padded dressing and is wondering if there is anything she can do for this. Patient Active Problem List Diagnosis Date Noted ??? Diabetes mellitus ([facility]) 08/11/2014 Priority: Medium ??? Vitamin D deficiency 01/28/2010 ??? Morbid obesity ([facility]) 01/22/2010 ??? Mild dysplasia of cervix ([facility] [...] ??? Diabetes Sister ??? Heart Disease Sister [place] at age 42 = ??? Diabetes Mother [...] Tab by mouth every 72 hours. (Patient taking differently: Take 150 mg by mouth as needed. ) 2 Tab 0 ??? folic acid ([facility]) [...] ?Ulcer plantar central left heel- remains healed. Mild overlying and surrounding hyperkeratotic tissue. No probing. No pain. No erythema or edema. No fluctuace.??Fat pad atrophy central heel.??No other open lesions. ??Protective sensation absent. ??Unable to assess manual muscle testing on the left. ??Psoriatic plaques to both lower legs. ASSESSMENT: 1. Skin ulcer of left foot, limited to breakdown of skin ([facility]) 2. Type 2 diabetes mellitus with diabetic polyneuropathy, with long-term current use of insulin ([facility]) No orders of the defined types were placed in this encounter. PLAN: Ms. Benoit presents today for follow-up left chronic plantar central heel ulcer. This remains healed. She has some very mild callus tissue here, but no underlying open areas. No fluctuance. We discussed that is not unusual to have some fat pad atrophy in the area after a chronic wound. She will likely need to continue to use padding here. We discussed various ways to do this. She could cut out a hole in her gel insoles if she does not wish to keep using a dressing. She is going to consider trying this when she gets a new pair next month. I showed her how to do this. She could can also continuewith the Mepilex during the day if this gives her the most relief. She is wearing good well-padded s hoes. Going to see her back in 3 months. She knows to call before then if any problems arise and ishappy with this plan. Portions of this document have been prepared with speech recognition software or keyboard micro computer data processor techniques. Minor irregularities or keyboarding misprints may be present documented in this encounter Plan of Treatment Upcoming Encounters Date Type Department Care Team (Late st Contact Info) Description 05/22/2024 10:00 EDT Office Visit [facility] Foot & [facility]le Program - [address] [address] Edwige Keller DPM [address] [place] [address] 07/18/2024 13:00 EDT Procedure visit [facility] Women's Services - [facility] [address] [place] [address] Jessica Murray NP 111 [facility], [address] [place] [address] documented as of this encounter Visit Diagnoses Diagnosis Skin ulcer of left foot, limited to breakdown of skin ([facility])- Primary Type 2 diabetes mellitus with diabetic polyneuropathy, with long-term current use of insulin ([facility]) documented in this encounter Care Teams Sheet Metal Worker Relationship Specialty Start Date End Date Ruth Munoz, J2EE CONSULTANT [address] [place] [phone] PCP - General 04/26/19 06/19/23 documented as of this encounter
--- OUTSIDE RECORDS SUMMARY | 2024-05-15 11:02 | XMS_ITS | Encounter Summary ---
Author Organization [facility] Address [address] [place] [address] Care Team Providers Care Devops Solutions Architect Name Role Phone MunozRuth Lilibeth JUAREZ Primary Care Provider + Encounter Details Date Type Department Care Team (Late st Contact Info) Description 01/20/2020 Orders Only [facility] Women's Services - [facility] [address] [place], [place] [id number] Cici Barker NP 111 [facility], [address] [place] [address] Social History Tobacco Use Types [...] HS twice weekly after 14 day treatment. 80 Each 01/20/2020 08/12/2020 documented in this encounter Progress Notes * Cici Barker APRN - 01/20/2020 1652 EDT Med Orders Placed This Visit and Additions to the Medication List Medications ??? Miscellaneous Medication - See Admin Instructions Sig: Boric acid caps 600 mg each. Sig: insert vaginally HS twice weekly after 14 day treatment. Dispense: 80 Each Refill: 0 documented in this encounter Plan of Treatment Upcoming Encounters Date Type Department Care Team (Late st Contact Info) Description 05/22/2024 10:00 EDT Office Visit [facility] Foot & Ankle Program - [address] [place], [place] [phone] Edwige Keller DPM [address] [place] [phone] 07/18/2024 13:00 EDT Procedure visit [facility] Women's Services - [facility] [address] [place], [place] [address] Jessica Murray NP 111 [facility], [facility], [address] [place] [address] documented as of this encounter Visit Diagnoses Not on filedocumented in this encounter Care Teams Devops Solutions Architect Relationship Specialty Start Date End Date Ruth Munoz APRN [address] [place] [phone] PCP - General 04/26/19 06/19/23 documented as of this encounter
--- OUTSIDE RECORDS SUMMARY | 2024-05-15 11:02 | XMS_ITS | Encounter Summary ---
Author Organization [facility] Address [address] [place] [address] Care Team Providers Care Carton Catcher Name Role Phone AlexanderAidanantony Mcelroy APRN Primary Care Provider + Encounter Details Date Type Department Care Team (Late st Contact Info) Description 07/24/2019 Orders Only [facility] Women's Services - [facility] [address] [place], [place] [address] Jessica Murray NP 111 [facility], [address] [place] [address] Vaginal irritation (Primary Dx) Social History Tobacco Use Types [...] 05/22/2024 10:00 EDT Office Visit [facility] Foot & Ankle Program - [address] [place] [address] Edwige Keller DPM [address] [place] [address] 07/18/2024 13:00 EDT Procedure visit [facility] Women's Services - [facility] [address] [place], [place] [phone] Jessica Murray NP 111 [facility], [facility], [address] [place] [address] documented as of this encounter Procedures Procedure Name Priority Date/Time Associated Diagnosis Comments ZZVAGINITIS EXAM Routine 07/24/2019 8:22 EDT Vaginal irritation documented in this encounter Results * VAGINITIS EXAM (07/24/2019 8:22 EDT) Gram Smear Result Yeast forms 07/24/2019 14:27 EDT [facility] Gram Smear Result Unable to rule out the presence of bacterial vaginosis. 07/24/2019 14:27 EDT [facility] Result No Trichomonas antigen detected. 07/24/2019 14:20 EDT [facility] Specimen of unknown material (specimen) VAGINAL STRUCTURE / Unknown 07/24/2019 8:22 EDT 07/24/2019 13:45 EDT Comment:Specimen submitted o n a flocked swab. Jessica Murray NP MICROBIOLOGY - GENER AL ORDERABLES [facility] [address] [place] [address] documented in this encounter Visit Diagnoses Diagnosis Vaginal irritation- Primary Unspecified noninflammatory disorder of vagina documented in this encounter Care Teams Carton Catcher Relationship Specialty Start Date End Date Ruth Munoz APRN [address] [place] [address] PCP - General 04/26/19 06/19/23 documented as of this encounter
--- OUTSIDE RECORDS SUMMARY | 2024-05-15 11:02 | XMS_ITS | Encounter Summary ---
Author Organization [facility] Address [address] [place] [address] Care Team Providers Care Test Driller Name Role Phone MunozRuth jerome Lilibeth JUAREZ Primary Care Provider + Reason for Visit * Reason Onset Date Comments Prior Auth, Medication 12/20/2019 Encounter Details Date Type Department Care Team (Late st Contact Info) Description 12/20/2019 Telephone [facility] - [facility] [address] [place] [address] Haily Hull RN [address] [place] [address] Prior Auth, Medication Social History Tobacco Use [...] Telephone Encounter - Haily Hull RN - 12/20/2019 8833 EST Images from the original note were not included. Martha called to report that her terazol needs a PA. Advised that the insurance company might not approve today, but that I will submit PA as soon as possible. PA submitted via covermymeds today. documented in this encounter Plan of Treatment Upcoming Encounters Date Type Department Care Team (Late st Contact Info) Description 05/22/2024 10:00 EDT Office Visit [facility] Foot & Ankle Program - [address] [address] Edwige Keller DPM [address] [place] [address] 07/18/2024 13:00 EDT Procedure visit [facility] Women's Services - [facility] [address] [place], [place] [phone] Jessica Murray NP 111 [facility], [facility], [address] [place] [phone] documented as of this encounter Visit Diagnoses Not on filedocumented in this encounter Care Teams Test Driller Relationship Specialty Start Date End Date Ruth Munoz APRN [address] [place] [phone] PCP - General 04/26/19 06/19/23 documented as of this encounter
--- OUTSIDE RECORDS SUMMARY | 2024-05-15 11:02 | XMS_ITS | Encounter Summary ---
Author Organization [facility] Address [address] [place] [address] Care Team Providers Care Stock Sheets Cleaner Inspector Name Role Phone Ruth Munoz Lilibeth JUAREZ Primary Care Provider + Encounter Details Date Type Department Care Team (Latest Contact Info) Description 05/13/2020 Travel Social History Tobacco Use Types Packs/Day [...] 05/22/2024 10:00 EDT Office Visit [facility] Foot & Ankle Program [place] [address] [place] [address] Edwige Keller, CLAUS [address] [place] [address] 07/18/2024 13:00 EDT Procedure visit [facility] Women's Services - [address] [address] Jessica Murray, POLO 111 [facility], [address] [place] [phone] documented as of this encounter Visit Diagnoses Not on filedocumented in this encounter Care Teams Stock Sheets Cleaner Inspector Relationship Specialty Start Date End Date Ruth Munoz APRN [address] [facility] [phone] PCP - General 04/26/19 06/19/23 documented as of this encounter
--- OUTSIDE RECORDS SUMMARY | 2024-05-15 11:02 | XMS_ITS | Encounter Summary ---
Author Organization [facility] Address [address] [place] [address] Care Team Providers Care Commercial Or Institutional Cleaner Name Role Phone Ruth Munoz Lilibeth JUAREZ Primary Care Provider + Encounter Details Date Type Department Care Team (Latest Contact Info) Description 04/30/2020 Travel Social History Tobacco Use Types Packs/Day [...] have Coronavirus / COVID-19? No / Unsure 04/30/2020 8:22 EDT documented as of this encounter Functional [...] Info) Description 05/22/2024 10:00 EDT Office Visit [facility] Foot & Ankle Program [place] [address] Edwige Keller, CLAUS [address] [place] [address] 07/18/2024 13:00 EDT Procedure visit [facility] Women's Services - [address] [address] Jessica Murray, POLO 111 [facility], [address] [place] [phone] documented as of this encounter Visit Diagnoses Not on filedocumented in this encounter Care Teams Commercial Or Institutional Cleaner Relationship Specialty Start Date End Date Ruth Munoz APRN 4 [facility] [place] [phone] PCP - General 04/26/19 06/19/23 documented as of this encounter
--- OUTSIDE RECORDS SUMMARY | 2024-05-15 11:02 | XMS_ITS | Encounter Summary ---
Author Organization [facility] Address [address] [place] [address] Care Team Providers Care General Worker Name Role Phone MunozRuth jerome Lilibeth JUAREZ Primary Care Provider + Reason for Visit * Reason Onset Date Comments Medications Refill 12/16/2019 Encounter Details Date Type Department Care Team (Late st Contact Info) Description 12/16/2019 Telephone [facility] Women's Services - [facility] [address] [place] [address] Angelica Butts, RN Medications Refill Social History Tobacco Use [...] Telephone Encounter - Angelica Butts RN - 12/17/2019 1116 EST Call from pt returning nurse call. * Telephone Encounter - Angelica Butts RN - 12/17/2019 1101 EST Call to patient. I spoke to patient. Patient aware Diflucan is ordered but in order to know for sure she needs to come in for exam. Patient states that she will come in for an exam. Appointment made for December 19, 2019. Patient informed not to use any creams prior to her appointment. * Telephone Encounter - Angelica Butts RN - 12/17/2019 1014 EST Call to patient. Left message for her to call office back. Need to inform patient that Diflucan wascalled in but also recommend to be seen to rule out bacterial vaginosis. * Telephone Encounter - Cici Barker APRN - 12/16/2019 1619 EST She can have a refill on her diflcan, but since she is going away, she may want to be seen to make sure she doesn't have BV. * Telephone Encounter - Angelica Butts RN - 12/16/2019 1019 EST Call to patient. I spoke to patient. This was regards to a refill request for flucanazole received fax from pharmacy. Patient states that she generated the request. States that she had picked up the flucanazole on December 03, 2019. Patient states she believes she had a yeast infection. She had vulvar burning in itching. States that she did get relief after the second dose but then over the past couple days symptoms returned. Symptoms not as bad but states still feeling a little bit . Patient denies foul odor or vaginal discharge. Patient states that she is a diabetic in she was hoping to have a refill as she believes it is yeast again and she is planning to go on a cruise on December 25. Inform patient I will ask provider and will get back to her. * Telephone Encounter - Angelica Butts RN - 12/16/2019 1001 EST Medication Refill Request Patient/Fax/Surescript Request Pharmacy fax Medication/Dose/Route/Frequency: Fluconazole 150 mg .1 Tablet by mouth every 72 hrs Pt completely out: unsure Last office visit: 07/23/19 Pending visit: no If appointment needed-message left/appointment made:will call Pharmacy confirmed: need Amount filled/# of refills: pending provider documented in this encounter Plan of Treatment Upcoming Encounters Date Type Department Care Team (Late st Contact Info) Description 05/22/2024 10:00 EDT Office Visit [facility] Foot & Ankle Program - [address] [place] [address] Edwige Keller DPM [address] [place] [phone] 07/18/2024 13:00 EDT Procedure visit [facility] Women's Services - [facility] [address] [place], [place] [phone] Jessica Murray NP 111 [facility], [address] [place] [address] documented as of this encounter Visit Diagnoses Not on filedocumented in this encounter Care Teams General Worker Relationship Specialty Start Date End Date Ruth Munoz, BIOLOGIST [address] [place] [phone] PCP - General 04/26/19 06/19/23 documented as of this encounter
--- OUTSIDE RECORDS SUMMARY | 2024-05-15 11:02 | XMS_ITS | Encounter Summary ---
Author Organization [facility] Address [address] [place] [address] Care Team Providers Care Health Care Social Worker Name Role Phone Ruth Munoz Lilibeth JUAREZ Primary Care Provider + Reason for Visit * Reason Onset Date Comments Other 04/01/2020 Encounter Details Date Type Department Care Team (Late st Contact Info) Description 04/01/2020 Telephone [facility] Women's Services - [facility] [address] [place] [address] Angelica Butts RN Other Social History Tobacco Use Types Packs/Day [...] Telephone Encounter - Cathy Cook RN - 04/02/2020 1005 EDT Spoke with Martha: was planning to go on cruise, right before was leaving had a resistant yeast infection & had trouble getting medical insurer to pay for Boric acid, eventually paind for it OOP. She requested a letter be sent, so that her trip insurance would cover the cost of her cancelled trip. 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 Letter from Cici Barker dated 12/25/19, does not say anything about the Robertson virus. Letter read to Martha. No other letter ~ this time says cannot travel due to Robertson virus. I will request [facility] staff to mail the 12/25/19 letter, written by Cici Barker, to Martha (confirmed her mailing address) & Martha will submit the letter to her trip insurer. * Telephone Encounter - Angelica Butts RN - 04/01/2020 1618 EDT Call from patient. Requesting callback. documented in this encounter Plan of Treatment Upcoming Encounters Date Type Department Care Team (Late st Contact Info) Description 05/22/2024 10:00 EDT Office Visit [facility] Foot & Ankle Program - [address] [address] Edwige Keller [address] [place] [address] 07/18/2024 13:00 EDT Procedure visit [facility] Women's Services - [facility] [address] [place], [place] [phone] Jessica Murray NP 111 [facility], [facility], [address] [place] [address] documented as of this encounter Visit Diagnoses Not on filedocumented in this encounter Care Teams Health Care Social Worker Relationship Specialty Start Date End Date Ruth Munoz, LARRY [address] [place] [phone] PCP - General 04/26/19 06/19/23 documented as of this encounter
--- OUTSIDE RECORDS SUMMARY | 2024-05-15 11:02 | XMS_ITS | Encounter Summary ---
Author Organization [facility] Address [address] [place] [address] Care Team Providers Care Property Claims Adjuster Name Role Phone MunozRuth Lilibeth JUAREZ Primary Care Provider + Encounter Details Date Type Department Care Team (Late st Contact Info) Description 12/27/2019 Orders Only [facility] Women's Services - [facility] [address] [place], [place] [address] Cici Barker NP 111 [facility], [address] [place] [address] Social History Tobacco Use Types [...] 05/22/2024 10:00 EDT Office Visit [facility] Foot & Ankle Program - [address] [place], [place] [phone] Edwige Keller DPM [address] [place] [address] 07/18/2024 13:00 EDT Procedure visit [facility] Women's Services - [facility] [address] [place] [address] Jessica Murray NP 111 [facility], [facility], [address] [place] [address] documented as of this encounter Visit Diagnoses Not on filedocumented in this encounter Discontinued Medications Medication Sig Discontinue Reason Start Date End Da te Miscellaneous Medication - See Admin Instructions Place 600 mg vaginally at bedtime for 14 days. Please call patient when ready.[phone] Error 12/25/2019 12/27/2019 documented as of this encounter Care Teams Property Claims Adjuster Relationship Specialty Start Date End Date Ruth Munoz APRN [address] [place] [address] PCP - General 04/26/19 06/19/23 documented as of this encounter
--- OUTSIDE RECORDS SUMMARY | 2024-05-15 11:02 | XMS_ITS | Encounter Summary ---
Author Organization [facility] Address [address] [place] [address] Care Team Providers Care Artificial Intelligence Specialist Name Role Phone Ruth Munoz Lilibeth JUAREZ Primary Care Provider + Reason for Visit * Reason Comments Procedure colpo Encounter Details Date Type Department Care Team (Latest Contact Info) Description 07/08/2020 10:30 EDT Procedure visit [facility] [address] [place] [address] Lola Vargas MD [address] [facility] Medical Office Building, [address] [place] [address] Cervical high risk human papillomavirus (HPV) DNA [...] 10:23 EDT documented as of this encounter Last Filed Vital Signs Vital Sign Reading Time Taken Comments Blood Pressure 112/56 07/08/2020 1023 EDT Pulse - - Temperature - - [...] Progress Notes * Lola Vargas MD - 07/08/2020 1030 EDT Images from the original note were not included. Colposcopy Procedure: Pt presents for colposcopy today from [facility] for nl pap with +HPV. Persistent +HPV for many years. See below. Cytology and pathology history: 06/2009, LEEP - [...] HPV pos OB history: Significant medical history: diabetes, obesity Current contraception: NA Menopausal status: menopausal, did not use preprocedure estrogen Prior hysterectomy: NA Smoking history: non smoker HIV: neg 04/2018 Received Gardisil: no Before sexual activity: NA Procedure: Consent signed. colposcopy of the cervix and upper vagina was performed with acetic acidand lugol's solution. Findings/biopsies noted below. Cervix: Entire cervix seen? yes Entire SCJ seen? no AW lesions? Finger like projections of AW over the cervix. Area of AW from 6-9 oclock Lugol's negative lesions? Same lesions Targeted biopsies done at 7-8 and 11 o'clock and ECC Vagina: AW lesions? Entire wall, suspect atrophy Lugol's negative lesions? same Vulva: nl A: HPV+ Suspect benign P: will check biopsies and call with results and further recs. If possible pt needs a colpo in the future, she would like to do pap and colpo on the same day. Addendum 07/10: PC to pt. Biopsies and ECC negative for dysplasia. Pt needs a pap and HPV one year. She is hoping to have the colpo the same day because she has had recurrent positive HPV for yrs as noted above. Can do that is ok with provider scheduled with. Will put in the tickler. documented in this encounter Plan of Treatment Upcoming Encounters Date Type Department Care Team (Late st Contact Info) Description 05/22/2024 10:00 EDT Office Visit [facility] - [address] [address] Edwige Keller DPM [address] [place] [phone] 07/18/2024 13:00 EDT Procedure visit [facility] [address] [place] [address] Jessica Murray NP [address] [facility], [address] [place] [address] documented as of this encounter Procedures Procedure Name Priority Date/Time Associated Diagnosis Comments SURGICAL PATHOLOGY Routine 07/08/2020 11 :14 EDT Cervical 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 documented in this encounter Results * SURGICAL PATHOLOGY (07/08/2020 11:14 EDT) Final Diagnosis A. CERVIX, 7 AND 11 O'CLOCK, BIOPSIES: - Squamous metaplasia with chronic inflammation and reactive changes. See comment. B. ENDOCERVIX, CURETTAGE: - Fragments of benign endocervix. 07/10/2020 9:[address] [facility] Diagnosis Comment The findings suggest chronic reactive changes in the setting of atrophy. Immunoperoxidase stains were performed on this case to further characterize the epithelial changes. ANTIBODY(CLONE)(BL OCK):RESULT P16 (E6H4TM, [place]) (A1): Not increased in the cells of interest. Ki67 (MIB-1) (K2, [place]ica) (A1): Not increased in the cell of interest. NOTE: One or more of the reagents [...] performance characteristics have been determined by [facility] and/or by the referring laboratory. The positive and negative controls worked appropriately. If immunoperoxidase staining has been performed on alcohol fixed cytology specimens, which has not been fully validated, the assays should be interpreted with caution and correlated with clinical data. This laboratory is certified under the Clinical Laboratory Improvement Amendments of 1988 (CLIA-88) as qualified to perform high complexity clinical laboratory testing. 07/10/2020 9:02 [facility] Attestation There was significant resident/fellow involvement in the diagnostic evaluation of this case. By the signature below, the attending physician certifies that they have personally conducted a gross and/or microscopic examination of the described specimens and rendered or confirmed the above diagnosis. 07/10/2020 9:02 [facility] at 0902 Clinical History Persistent HPV positive 07/10/2020 9:02 [facility] Gross Description A. Received in formalin labelled with proper patient identification (initials P, J) and 7 and 11 o'clock are 2 fragments of russell soft tissue (each averaging 0.2 x 0.2 x 0.2 cm). The specimen is entirely submitted in A1. B. Received in formalin labelled with proper patient identification (initials P, J) and ECC is a 0.5 x 0.3 x 0.3 cm aggregate of red-brown mucus. The specimen is entirely submitted in B1. ALFONSO BURCIAGA 07/08/2020 15:10 07/10/2020 9:[address] [facility] Resident/Jaison w: Raymon Barba, 07/10/2020 9:[address] [facility] Performing Lab [facility] 9:[address] [facility] Scanned Images 07/10/2020 9:[address] [facility] Tissue ENTIRE WALL OF CERVIX / Unknown Collection, Other / Unknown 07/08/2020 11:14 EDT 07/08/2020 14:48 EDT Tissue specimen (specimen) ENDOCERVICAL STRUCTURE / Unknown 07/08/2020 11:14 EDT 07/08/2020 14:48 EDT Lola Vargas MD PATHOLOGY ORDERABLE S [facility] [address] [place] [address] documented in this encounter Visit Diagnoses Diagnosis Cervical 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- Primary documented in this encounter Care Teams Artificial Intelligence Specialist Relationship Specialty Start Date End Date Ruth Munoz, SALES SUPPORT REP [address] [place] [phone] PCP - General 04/26/19 06/19/23 documented as of this encounter
--- OUTSIDE RECORDS SUMMARY | 2024-05-15 11:02 | XMS_ITS | Encounter Summary ---
Author Organization [facility] Address [address] [place], [place] Care Team Providers Care Aircraft Machinist Name Role Phone MunozRuth jerome Lilibeth JUAREZ Primary Care Provider + Reason for Visit * Reason Comments Other bump left side vagin al area Encounter Details Date Type Department Care Team (Late st Contact Info) Description 04/30/2020 15:30 EDT Office Visit [facility] Gynecologic Oncology - [address] [id number] Kassie Carreon PA-C [address] [place] [address], [address] [place] [address] Vulvar cyst (Primary Dx); HPV (human papilloma virus) infection; Cervical cancer screening Social History Tobacco Use Types Packs/Day Years [...] 8:22 EDT documented as of this encounter Last Filed Vital Signs Vital Sign Reading Time Taken Comments Blood Pressure 110/60 04/30/2020 1459 EDT Pulse - - Temperature - - Respiratory Rate - - Oxygen Saturation - - Inhaled Oxygen Concentration - - Weight 85.2 kg (187 lb 12.8 oz) 04/30/2020 1459 EDT Height 160 cm (5' 2.99) 04/30/2020 1459 EDT Body Mass Index 33.28 04/30/2020 1459 EDT documented in this encounter Functional Status [...] this encounter Patient Instructions * Patient Instructions* Nadir Sequeira RN - 04/30/2020 15:30 EDT Vaginal inclusion Cyst: Use warm compresses to area as needed. Watch for increasing pain, redness, fever, or chills. Pending results of PAP smear today we will follow up with regards to your colposcopy request. documented in this encounter Progress Notes * Kassie Carreon PA-C - 04/30/2020 1530 EDT Subjective: Patient ID: Martha Benoit is an 54 y.o. female. Chief Complaint Patient presents with ??? Other bump left side vaginal area HPI Martha Benoit is a 54 y.o. woman who presents today primarily with a complaint of a bump on her left labia, but also is nearly due for a repeat Pap smear. In regards to the bump, she first noticed it a couple of days ago, it is slightly uncomfortable, she denies any fevers or chills, denies any drainage, she is not sexually active. Denies any recent trauma to the area. 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 Martha has a hIstory of recurrent cervical dysplasia: 08/15/2009, LEEP and laser of posterior wall of the vagina because of persistent LGSIL. 12/2009: ASCUS 06/2010 and 11/2010, 05/2011, 11/2011 and [id number] were negative for any dysplasia or malignancy 05/2012 was positive for HPV, and a plan was made to repeat her pap smear in 6 months 01/2013, and was NIL and negative for HPV. February 2014, NIL, positive for HPV.?? Colposcopy on 04/08/14, boipsy at that time showed AIDEN 1, Feb, 2015: NIL/negative HPV. Feb, 2016: NIL and positive for HR HPV, colposcopy in April,, biopsy benign. Feb, 2017: NIL, positive HPV, colposcopy with benign biopsy April,. NIL and neg HR HPV 05/23/19: NIL, positive HR HPV-->colpo 07/23/19, benign. Follow up: pap/HPV in one year, pt typically has request to schedule a colpo rather than a pap smear, as it makes her more comfortable, as she feels it is more reliable than the pap smear, and as shetravel[place] a ways to get to [place], does not want to make 2 trips. ?? History of STDs: HPV only.Full STI screening done last year, negative. Otherwise, no physician relations manager complaints. Does not want to have mammograms, as a mammogram in the past led to a scare where she states she was told that she would need a mastectomy, but denies having had a breast biopsy. Patient Active Problem List Diagnosis ??? Mild dysplasia of cervix (AIDEN I) ??? Morbid obesity ([facility]) ??? Vitamin D deficiency ??? Diabetes mellitus ([facility]) Past Medical History: Diagnosis Date ??? Unspecified cerebral artery occlusion with cerebral infarction Past Surgical History: Procedure Laterality Date ??? CERVIX LESION DESTRUCTION 07/15/2009 ??? GASTRIC BYPASS SURGERY 01/04/16 ??? LEEP 07/15/2009 ??? TUBAL LIGATION Family History Problem Relation Age of Onset ??? Colon Cancer Father ??? Diabetes Father ??? Stroke Father ??? Cervical Cancer Sister ??? Diabetes Sister ??? Heart Disease Sister [place] at age 42 = ??? Diabetes Mother ??? Diabetes Brother ??? Diabetes Maternal Aunt ??? Diabetes Maternal Uncle Social Social History Tobacco Use ??? Smoking status: Never Smoker ??? Smokeless tobacco: Never Used Substance Use Topics ??? Alcohol use: No ??? Drug use: Not on file Current Outpatient Medications on File Prior to Visit Medication Sig Dispense Refill ??? adalimumab (HUMIRA,CF, [...] May repeat in 3-4 days if necessary. (Patient not taking: Reported on 04/30/2020) 6 Tab 0 ??? fluconazole (DIFLUCAN) 150 mg tablet Take 1 Tab by mouth every 72 hours. (Patient not taking: Reported on 12/19/2019) 2 Tab 0 ??? folic acid (FOLVITE) [...] patient when ready. 14 Each 0 ??? Miscellaneous Medication - See Admin Instructions Boric acid caps 600 mg each. Sig: insert vaginally HS twice weekly after 14 day treatment. 80 Each 0 ??? nitroglycerin (RECTIV) 0.4 % [...] tablet,chewable Take 1 Tab by mouth. ??? terconazole (TERAZOL 3) [address] Suppository vaginally daily. For 6 nights (Patient not taking: Reported on 04/30/2020) 6 Suppository 0 ??? triamcinolone (KENALOG) 0.1 % ointment APPLY TOPICALLY TO ARMS LEGS AND ABDOMEN TWO TIMES A DAYAS NEEDED No current facility-administered medications on file prior to visit. No Known Allergies Review of Systems Constitutional: Negative. HENT: Negative. Eyes: Negative. Respiratory: Negative. Cardiovascular: Negative. Gastrointestinal: Negative. Endocrine: Negative. Genitourinary: Negative. Musculoskeletal: Negative. Skin: Negative. Allergic/Immunologic: Negative. Neurological: Negative. Hematological: Negative. Psychiatric/Behavioral: Negative. - See HPI Objective: BP 110/60 Ht 160 cm (62.99) Wt 85.2 kg (187 lb 12.8 oz) BMI 33.28 kg/m?? Physical Exam Constitutional: She is oriented to person, place, and time. She appears well- developed and well-nourished. No distress. HENT: Head: Normocephalic and atraumatic. Eyes: Pupils are equal, round, and reactive to light. Neck: Normal range of motion. No thyromegaly present. Cardiovascular: Normal rate, regular rhythm and normal heart sounds. Exam reveals no gallop and no friction rub. No murmur heard. Pulmonary/Chest: Effort normal and breath sounds normal. No respiratory distress. She has no wheezes. She has no rales. Right breast exhibits no inverted nipple, no mass, no nipple discharge, no skinchange and no tenderness. Left breast exhibits no inverted nipple, no mass, no nipple discharge, noskin change and no tenderness. Breasts are symmetrical. There is no breast swelling. Breast bleeding is absent. Abdominal: Soft. Bowel sounds are normal. She exhibits no distension. There is no tenderness. Thereis no rebound. Genitourinary: Vagina normal and uterus normal. There is no rash, tenderness, lesion or injury on the right labia. There is no rash, tenderness, lesion or injury on the left labia. No vaginal erythema, tenderness or bleeding. No signs of injury around the vagina. No vaginal discharge found. Right adnexum displays no mass, no tenderness and no fullness. Left adnexum displays no mass, no tendernessand no fullness. Cervix exhibits no motion tenderness, no discharge and no friability. Small sebaceous cyst on her left labia majora, already draining, expressed in clinic with complete expression of sebaceous material. Musculoskeletal: Normal range of motion. Lymphadenopathy: She has no cervical adenopathy. She has no axillary adenopathy. Neurological: She is alert and oriented to person, place, and time. Skin: Skin is warm and dry. No erythema. No pallor. Psychiatric: She has a normal mood and affect. Her behavior is normal. Judgment and thought contentnormal. Assessment: Sebaceous labial cyst. Follow up for history of high risk HPV and cervical dysplasia. Plan: There are no diagnoses linked to this encounter. As above, cyst was drained. Pap with HPV. Follow and proceed accordingly. As above, pt desires colposcopy regardless. If pap abnormal, and/or HPV positive, refer for colposcopy. If NIL/negative, will review with colpo group. Breast exam performed, encouraged pt to schedule a mammogram. Kassie Carreon PA-C * Nadir Sequeira RN - 04/30/2020 1530 EDT Subjective: Martha Benoit is a 54 y.o. woman who presents for complaint of a bump on her vagina. Chief Complaint Patient presents with ??? Other bump left side vaginal area HPI: Martha presents today for a complaint of a lump on her vagina. She first noticed the lump yesterday 04/29 after sitting for a prolonged period of time in which her vagina became sore and she feltthe lump on the left side of her labia. She endorses that the lump is mildy painful to touch but not painful at rest. Denies vaginal discharge, bleeding, fevers/chills. She denies any new sexual partners. She had not tried anything to decrease the discomfort. She is concerned that this lump is related to her past history of HPV and wanted to be seen due to this. Of note Martha wishes to have her cytology performed today, which was previously scheduled for May due to traveling a far distance for appointments. Further requesting a colposcopy today with no PAP d/t history. Discussed w/ Martha at length when colposcopies are appropriate and limitations for use today, she is agreeable to have a PAP today and follow up as necessary. HX cervical cytology & colposcopy 06/2009, LEEP - AIDEN I - neg [...] pos for other HPV and pap neg ??then can go to colpos every 2 years. If HPV 16,18 pos then needs at that time. Advised needs vag estrogen week prior to colpos 05/23/19 NIL + HR HPV and + HR type 18/45; neg HR type 16. 07/23/19 colpo with cervical bx, ECC, and right vaginal wall biopsy PMH: Past Medical History: Diagnosis Date ??? Unspecified cerebral artery occlusion with cerebral infarction PSHX: Social History Socioeconomic History ??? Marital status: Spouse name: None ??? Number of children: None ??? Years of education: None ??? Highest education level: None Occupational History ??? None Social Needs ??? Financial resource strain: None ??? Food insecurity: Worry: None Inability: None ??? Transportation needs: Medical: None Non-medical: None Tobacco Use ??? Smoking status: Never Smoker ??? Smokeless tobacco: Never Used Substance and Sexual Activity ??? Alcohol use: No ??? Drug use: None ??? Sexual activity: Not Currently Lifestyle ??? Physical activity: Days per week: None Minutes per session: None ??? Stress: None Relationships ??? Social connections: Talks on phone: None Gets together: None Attends alevism service: None Active member of club or organization: None Attends meetings of clubs or organizations: None Relationship status: None ??? Intimate partner violence: Fear of current or ex partner: None Emotionally abused: None Physically abused: None Forced sexual activity: None Other Topics Concern ??? None Social History Narrative ??? None Allergies: No Known Allergies Medications: Current Outpatient Medications on File Prior to Visit Medication Sig Dispense Refill ??? adalimumab (HUMIRA,CF, [...] May repeat in 3-4 days if necessary. (Patient not taking: Reported on 04/30/2020) 6 Tab 0 ??? fluconazole (DIFLUCAN) 150 mg tablet Take 1 Tab by mouth every 72 hours. (Patient not taking: Reported on 12/19/2019) 2 Tab 0 ??? folic acid (FOLVITE) [...] patient when ready. 14 Each 0 ??? Miscellaneous Medication - See Admin Instructions Boric acid caps 600 mg each. Sig: insert vaginally HS twice weekly after 14 day treatment. 80 Each 0 ??? nitroglycerin (RECTIV) 0.4 % [...] tablet,chewable Take 1 Tab by mouth. ??? terconazole (TERAZOL 3) [address] Suppository vaginally daily. For 6 nights (Patient not taking: Reported on 04/30/2020) 6 Suppository 0 ??? triamcinolone (KENALOG) 0.1 % ointment APPLY TOPICALLY TO ARMS LEGS AND ABDOMEN TWO TIMES A DAYAS NEEDED No current facility-administered medications on file prior to visit. Family History: Family History Problem Relation Age of Onset ??? Colon Cancer Father ??? Diabetes Father ??? Stroke Father ??? Cervical Cancer Sister ??? Diabetes Sister ??? Heart Disease Sister [place] at age 42 = ??? Diabetes Mother ??? Diabetes Brother ??? Diabetes Maternal Aunt ??? Diabetes Maternal Uncle Social History: Social History Socioeconomic History ??? Marital status: Spouse name: Not on file ??? Number of children: Not on file ??? Years of education: Not on file ??? Highest education level: Not on file Occupational History ??? Not on file Social Needs ??? Financial resource strain: Not on file ??? Food insecurity: Worry: Not on file Inability: Not on file ??? Transportation needs: Medical: Not on file Non-medical: Not on file Tobacco Use ??? Smoking status: Never Smoker ??? Smokeless tobacco: Never Used Substance and Sexual Activity ??? Alcohol use: No ??? Drug use: Not on file ??? Sexual activity: Not Currently Lifestyle ??? Physical activity: Days per week: Not on file Minutes per session: Not on file ??? Stress: Not on file Relationships ??? Social connections: Talks on phone: Not on file Gets together: Not on file Attends alevism service: Not on file Active member of club or organization: Not on file Attends meetings of clubs or organizations: Not on file Relationship status: Not on file ??? Intimate partner violence: Fear of current or ex partner: Not on file Emotionally abused: Not on file Physically abused: Not on file Forced sexual activity: Not on file Other Topics Concern ??? Not on file Social History Narrative ??? Not on file Review Of Systems: Constitutional: denies fever, chills Gastrointestinal: Denies changes in bowel,denies abdominal pain Genitourinary: Endorses new lesion to vagina, denies dysuria, denies vaginal discharge, denies vaginal bleeding Physical Exam: Physical Exam: General: Normal Neck: No thyroidmegaly palpated, no lymphadenopathy appreciated Lungs: Clear to auscultation all vivas, no adventitious sounds Heart: regular rate and rhythm, no murmurs Breasts: Right: negative, no masses palpated Left: negative, no masses palpated Neuro/Psych: Anxious Abdomen: Soft, non-tender, no masses palpated BRUSH FINISHER: Right labia without masses, left labia minora with small, approximately [id number] white-yellow cyst with discharge, normal introitus,erythema to r. Inguinal fold ,no exudate, or discharge. Vaginalmucosal is pink and moist with ruggae, no lesions appreciated. Cervical os slit and pink, no lesions or discharge . Rectal exam deferred Assessment/Plan Assessment/Plan 1. Vaginal cyst: Likely inclusion cyst. Manually drained today. Given location, lack of erythema/consitutional symptoms and relative lack of discomfort, monitor at home. Use warm compresses as needed. 2. Cytology: - Pending cytology results. -Encouraged mammogram , patient declines. Follow-up in one year, sooner pending cytology results, will call with results. Please return or call if vaginal cyst becomes larger, you develop fever, chills, or worsening pain to area. documented in this encounter Plan of Treatment Upcoming Encounters Date Type Department Care Team (Late st Contact Info) Description 05/22/2024 10:00 EDT Office Visit [facility] Foot & Ankle Program - [address] [place] [address] Edwige Keller DPM [address] [place] [address] 07/18/2024 13:00 EDT Procedure visit [facility] Women's Services - [facility] [address] [place], [place] [id number] Jessica Murray NP [address] [facility], [facility], [address] [place] [address] documented as of this encounter Procedures Procedure Name Priority Date/Time Associated Diagnosis Comments PAP TEST Routine 04/30/2020 16:15 EDT HPV (human papilloma virus) infection HPV GENOTYPES 16 AND 18/45 Today 04/30/2020 16:15 EDT HPV (human papilloma virus) infection HPV DNA DETECTION WITH GENOTYPING, PCR Today 04/30/2020 16:15 EDT HPV (human papilloma virus) infection documented in this encounter Results * (ABNORMAL) HPV GENOTYPES 16 AND 18/45 (04/30/2020 16:15 EDT) HPV High Risk type 16, PCR Negative Negative 05/14/2020 15:13 EDT [facility] HPV18/45 RNA (HPV18/45) Positive(A) Negative 05/14/2020 15:13 EDT [facility] Papanicolaou smear specimen (specimen) CERVIX UTERI STRUCTURE / Unknown 04/30/2020 16:15 EDT 05/07/2020 14:16 EDT Kassie Carreon PA-C MICROBIOLOGY - GENERAL ORDERABLES Performing Organization Address [facility] de Phone Number [facility] [address] [place] [address] * (ABNORMAL) HUMAN PAPILLOMAVIRUS (HPV) DETECTION-HIGH RISK TYPES (04/30/2020 16:15 EDT) HPV other High Risk types, PCR Positive( A) Negative 05/14/2020 15:13 EDT [facility] Comment:E6 OR E7 mRNA from o ne or more types of HPV types 16,18,31,33,35,39,45,51,52,56,58,59,66, and [address] production general manager mediated amplification. High and intermediate risk HPV types are associated with most squamous intraepithelial lesions and cervical cancers. Papanicolaou smear specimen (specimen) CERVIX UTERI STRUCTURE / Unknown 04/30/2020 16:15 EDT 05/07/2020 14:16 EDT Kassie Carreon PA-C MICROBIOLOGY - GENERAL ORDERABLES Performing Organization Address [facility] Co de Phone Number [facility] [address] [place] [address] * PAP TEST (04/30/2020 16:15 EDT) Amendment Comment Please review Amended Genotypes 16 & 18/45 results below. 05/26/2022 15:52 EDT [facility] Specimens A. Cervix and/or Endocervix , ThinPrep Imaging System with Manual Evaluation 05/26/2022 15:52 EDT [facility] Specimen Adequacy Satisfactory for Evaluation - transformation zone component present 05/26/2022 15:52 EDT [facility] General Categorization Negative for intraepithelial lesion or malignancy 05/26/2022 15:52 EDT [facility] Descriptive Diagnosis Reactive cellular changes associated with inflammation present (includes repair). 05/26/2022 15:52 [facility] Attestation By the signature below, the attending physician certifies that they have personally conducted a gross and/or microscopic examination of the described specimens and rendered or confirmed the above diagnosis. 05/26/2022 15:52 [facility] Amendment electronically signed by Nany Chris SCT(ASCP) on 05/26/2022 at 1552 at 1513 Clinical History History of persistent HPV, follow up. 05/26/2022 15:52 [facility] HPV The result for the Human Papillomavirus (HPV) Detection-High Risk Types is Positive . E6 OR E7 mRNA from one or more types of HPV types 16,18,31,33,35,39 ,45,51,52,56,58,5 9,66, and [address] is detected [address] production general manager mediated amplification. High and intermediate risk HPV types are associated with most squamous intraepithelial lesions and cervical cancers. Testing was performed on specimen [id number] and was resulted on 05/08/2020 1514 EDT by GODFREY, LAB INSTRUMENT RESULTS IN 05/26/2022 15:52 EDT [facility] Genotyping 16 & 18/45 The results for the HPV Genotypes 16 and 18/45 are Negative for the HPV16 RNA and Positive for the HPV18/45 RNA (HPV18/45) . Testing was performed on specimen [id number] and was resulted on 05/14/2020 1440 EDT by GODFREY, LAB INSTRUMENT RESULTS IN 05/26/2022 15:52 EDT [facility] Scanned Images 05/26/2022 15:52 T [facility] Papanicolaou smear specimen (specimen) CERVIX UTERI STRUCTURE / Unknown 04/30/2020 16:15 EDT 05/01/2020 10:46 EDT Kassie Carreon PA-C PATHOLOGY ROBINA GOLD [facility] [address] [place] [id number] documented in this encounter Visit Diagnoses Diagnosis Vulvar cyst- Primary Other specified noninflammatory disorder of vulva and perineum HPV (human papilloma virus) infection Human papillomavirus in conditions classified elsewhere and of unspecified site Cervical cancer screening Screening for malignant neoplasm of the cervix documented in this encounter Discontinued Medications Medication Sig Discontinue Reason Start Date End Da te fluconazole (DIFLUCAN) 150 mg tablet Take 1 Tab by mouth every 72 hours. Therapy completed 07/25/2019 05/01/2020 fluconazole (DIFLUCAN) 150 mg tablet Take 1 Tab by mouth once for 1 dose. Take one tab. May repeat in 3-4 days if necessary. Therapy completed 12/19/2019 05/01/2020 terconazole (TERAZOL 3) [address] Suppository vaginally daily. For 6 nights Therapy completed 12/20/2019 05/01/2020 documented as of this encounter Historical Medications * This list may reflect changes made after this encounter. Medication Sig Dispensed Refills Start Date End Date adalimumab (HUMIRA,CF, SUBQ)Indications:takes every other week not sure of dose Inject into the skin. 01/08/2024 added in this encounter Care Teams Aircraft Machinist Relationship Specialty Start Date End Date Ruth Munoz APRN [address] [place] [phone] PCP - General 04/26/19 06/19/23 documented as of this encounter
--- OUTSIDE RECORDS SUMMARY | 2024-05-15 11:02 | XMS_ITS | Encounter Summary ---
Author Organization [facility] Address [address] [place] [address] Care Team Providers Care Linotype Machinist Apprentice Name Role Phone MunozRuth Lilibeth JUAREZ Primary Care Provider + Reason for Visit * Reason Onset Date Comments Coordination Of Care 04/02/2020 Encounter Details Date Type Department Care Team (Late st Contact Info) Description 04/02/2020 Telephone [facility] Women's Services [facility] [address] [place], [place] [address] Cici Barker NP [address] [facility], [facility] [address] [place] [address] Coordination Of Care Social History Tobacco Use Types Packs/Day [...] encounter Miscellaneous Notes * Telephone Encounter - Lupe Nolasco - 04/02/2020 1427 EDT Sent letter to patient from Cici Barker - addressed to patient @ [address] [place] [address]. documented in this encounter Plan of Treatment Upcoming Encounters Date Type Department Care Team (Late st Contact Info) Description 05/22/2024 10:00 EDT Office Visit [facility] Foot & Ankle Program - [address] [address] Edwige Keller DPM [address] [place] [phone] 07/18/2024 13:00 EDT Procedure visit [facility] Women's Services - [facility] [address], [place] [id number] Jessica Murray NP [address] [facility], [facility], [address] [place] [address] documented as of this encounter Visit Diagnoses Not on filedocumented in this encounter Care Teams Linotype Machinist Apprentice Relationship Specialty Start Date End Date Ruth Munoz APRN [address] [place] [phone] PCP - General 04/26/19 06/19/23 documented as of this encounter
--- OUTSIDE RECORDS SUMMARY | 2024-05-15 11:02 | XMS_ITS | Encounter Summary ---
Author Organization [facility] Address [address] [place] [address] Care Team Providers Care Bullet Assembly Press Setter Operator Name Role Phone Ruth Munoz APRN Primary Care Provider + Katia Haywood Primary Care Provider [phone] Encounter Details Date Type Department Care Team (Late st Contact Info) Description 06/19/2020 Results Only Imaging [facility] - [facility] [facility] Radiology Results [address] [place] [address] Shola Vazquez MD [address] [place] [address] [address] [place] [address] Social History Tobacco Use Types Packs/Day Years [...] Description 05/22/2024 10:00 EDT Office Visit [facility] - [facility] [address] [facility] [place] [place] [address] Edwige Keller DPM [address] [place] [address] 07/18/2024 13:00 EDT Procedure visit [facility] Women's Services - [facility] [address] [place] [address] Jessica Murray NP 111 [facility], [facility], [address] [place] [phone] documented as of this encounter Procedures Procedure Name Priority Date/Time Associated Diagnosis Comments MR HEAD WO CONTRAST 06/19/2020 1 4:56 EDT documented in this encounter Results * MR HEAD WO CONTRAST (06/19/2020 14:56 EDT) Anatomical Region Laterality Modality Head Magnetic Resonan ce 06/19/2020 14:5 6 EDT Narrative 06/19/2020 14:56 EDT ? EXAM: MAGNETIC RESONANCE IMAGING/INTERNAL EX. D/ (1919) ? CLINICAL INFORMATION: ? H90.A74-[id number] HEARING LOSS OF LEFT EAR WITH RESTRICTED HEARING ? OF RIGHT EAR ? INDICATION: Sensorineural hearing loss on the left with restricted ? hearing on the right. ? COMPARISON: None. ? TECHNIQUE: Multiplanar, multisequence precontrast and postcontrast ? enhanced MRI scan of the brain and internal auditory canals was ? performed. ? FINDINGS: ? The right and left internal auditory canals have normal appearances. ? No acoustic neuroma is identified. No cerebellopontine angle mass is ? present. ? The CSF spaces are consistent with patient's age. There are a few ? nonspecific T2 FLAIR signal hyperintensities within the white matter ? tracts of both cerebral hemispheres which are typically seen with ? small vessel disease/chronic white matter ischemic changes of aging. ? There is a high T2 signal white matter lesion within the left ? periventricular white matter that has a perpendicular orientation to ? the left lateral ventricle. Demyelinating disease is not excluded. No ? enhancement of any white matter lesion is present. No intracranial ? mass or mass effect. No abnormal intraparenchymal enhancement. The ? cerebellum, brainstem and other midline structures are unremarkable. ? There are normal signal flow voids within the internal carotid and ? basilar arteries. ? There is mild mucosal thickening of the ethmoid sinuses. The mastoids ? are clear. The orbits are unremarkable. The bones and soft tissues ? have normal appearances. ? IMPRESSION: ? 1. No acoustic neuroma. ? 2. Nonspecific white matter signal hyperintensities typically seen ? with small vessel disease/chronic white matter ischemic changes of ? aging. Other white matter disorders including demyelinating disease ? are not excluded however. ? REPORT SIGNED IN OTHER VENDOR SYSTEM 06/19/2020 ?Reported By: Galdino Ornelas MD ? CC: Shola Vazquez ? Transcribed Date/Time: 06/19/2020 (1456) ? Endoscopy Specialty Technician: ? Printed Date/Time: 06/19/2020 (1664) ? PAGE 1 ? Signed Report ? Procedure Note Galdino Ornelas MD - 06/19/2020 EXAM: MAGNETIC RESONANCE IMAGING/INTERNAL EX. D/ (1919) CLINICAL INFORMATION: [id number].[id number] HEARING LOSS OF LEFT EAR WITH RESTRICTEDHEARING OF RIGHT EAR INDICATION: Sensorineural hearing loss on the left with restricted hearing on the right. COMPARISON: None. TECHNIQUE: Multiplanar, multisequence precontrast and postcontrast enhanced MRI scan of the brain and internal auditory canals was performed. FINDINGS: The right and left internal auditory canals have normalappearances. No acoustic neuroma is identified. No cerebellopontine angle massis present. The CSF spaces are consistent with patient's age. There are a few nonspecific T2 FLAIR signal hyperintensities within the whitematter tracts of both cerebral hemispheres which are typically seen with small vessel disease/chronic white matter ischemic changes ofaging. There is a high T2 signal white matter lesion within the left periventricular white matter that has a perpendicular orientationto the left lateral ventricle. Demyelinating disease is not excluded.No enhancement of any white matter lesion is present. No intracranial mass or mass effect. No abnormal intraparenchymal enhancement. The cerebellum, brainstem and other midline structures areunremarkable. There are normal signal flow voids within the internal carotid and basilar arteries. There is mild mucosal thickening of the ethmoid sinuses. Themastoids are clear. The orbits are unremarkable. The bones and soft tissues have normal appearances. IMPRESSION: 1. No acoustic neuroma. 2. Nonspecific white matter signal hyperintensities typically seen with small vessel disease/chronic white matter ischemic changes of aging. Other white matter disorders including demyelinating disease are not excluded however. REPORT SIGNED IN OTHER VENDOR SYSTEM 06/19/2020 Reported By: Galdino Ornelas MD CC: Shola Vazquez MD Transcribed Date/Time: 06/19/2020 (1456) Endoscopy Specialty Technician: HIS.POWSCR Printed Date/Time: 06/19/2020 (2840) PAGE 1 Signed Report Shola Vazquez MD IMG MRI ORDERABLES documented in this encounter Visit Diagnoses Not on filedocumented in this encounter Care Teams Bullet Assembly Press Setter Operator Relationship Specialty Start Date End Date Ruth Munoz, AUXILIARY OPERATOR [address] [place] [phone] PCP - General 04/26/19 06/19/23 Katia Haywood [address] [address] PCP - General Family Medicine - Primary Care 06/20/23 documented as of this encounter
--- OUTSIDE RECORDS SUMMARY | 2024-05-15 11:02 | XMS_ITS | Encounter Summary ---
Author Organization [facility] Address [address] [place] [address] Care Team Providers Care Paper Guillotine Operator Name Role Phone Ruth Munoz Lilibeth JUAREZ Primary Care Provider + Reason for Visit * Reason Comments Follow-up mri Encounter Details Date Type Department Care Team (Latest Contact Info) Description 07/22/2020 9:40 EDT [facility] Visit [facility] [address] [place] [address] Shola Vazquez MD [address] [place] [address] [address] [place] [address] Sensorineural hearing loss (SNHL) of left [...] Progress Notes * Shola Vazquez MD - 07/22/2020 0940 EDT REASON FOR VISIT: Follow-up left hearing loss and ear pain ?? SUBJECTIVE: Patient complains for greater than 1 year history of left ear pain. Also complains of burning pain of left face. Thinks she has an infection and wants antibiotics. ?? OBJECTIVE: MRI scan was read and reviewed no evidence of acoustic neuroma or infection. Nonspecificwhite matter changes noted. Binocular otomicroscopy was performed no evidence of perforation fluid or infection. ?? ASSESSMENT: Asymmetric left sensorineural hearing loss no evidence of acoustic neuroma. Unclear etiology of left ear and facial pain. ?? PLAN: Patient will see her neurologist regarding pain evaluation and management. Consider trigeminal neuralgia or other types of nerve pain. documented in this encounter Plan of Treatment Upcoming Encounters Date Type Department Care Team (Late st Contact Info) Description 05/22/2024 10:00 EDT Office Visit [facility] Foot & Ankle Program - [address] [place] [address] Edwige Keller DPM [address] [place] [address] 07/18/2024 13:00 EDT Procedure visit [facility] Women's Services - [facility] [address] [place], [place] [phone] Jessica Murray NP 111 [facility], [facility], [address] [place] [address] documented as of this encounter Visit Diagnoses Diagnosis Sensorineural hearing loss (SNHL) of left ear with restricted hearing of right ear- Primary documented in this encounter Care Teams Paper Guillotine Operator Relationship Specialty Start Date End Date Ruth Munoz, GEOTHERMAL OPERATIONS MANAGER [address] [place] [address] PCP - General 04/26/19 06/19/23 documented as of this encounter
--- OUTSIDE RECORDS SUMMARY | 2024-05-15 11:02 | XMS_ITS | Encounter Summary ---
Author Organization [facility] Address [address] [place] [address] Care Team Providers Care Baker Second Name Role Phone MunozRuth jerome Lilibeth JUAREZ Primary Care Provider + Reason for Visit * Reason Onset Date Comments Vaginal Issues 01/21/2020 Encounter Details Date Type Department Care Team (Late st Contact Info) Description 01/21/2020 Telephone [facility] Women's Services [facility] [address] [place], [place] [phone] Cici Barker NP [address] [facility], [address] [place] [address] Vaginal Issues Social History Tobacco Use Types Packs/Day Years [...] Encounter - Haily Hull RN - 01/21/2020 1244 EDT Call to Martha. Reviewed that there are no medicaid covered treatments for this strain of yeast. Offered another vaginal swab in the office, but Martha declined. She is confident that this is the same infection. Faxed PA for 6 month course of boric acid today. * Telephone Encounter - Cici Barker APRN - 01/21/2020 1154 EDT RE: request for Medicaid paid medication for C. Glabrata. There are no approved medications for this medication. Another option might be (please check with lab) to stop by the office for a vaginal swab with a Beaker slip and perform a vaginal swab herself, leave it in our bathroom and we will send it downstairs to the lab to make sure it is still marisel glabratawi. documented in this encounter Plan of Treatment Upcoming Encounters Date Type Department Care Team (Late st Contact Info) Description 05/22/2024 10:00 EDT Office Visit [facility] Foot & Ankle Program - [address] [place] [address] Edwige Keller DPM [address] [place] [address] 07/18/2024 13:00 EDT Procedure visit [facility] Women's Services - [facility] [address] [place] [address] Jessica Murray NP 111 [facility], [facility], [address] [place] [address] documented as of this encounter Visit Diagnoses Not on filedocumented in this encounter Care Teams Baker Second Relationship Specialty Start Date End Date Ruth Munoz, WINDOW CASER [address] [place] [phone] PCP - General 04/26/19 06/19/23 documented as of this encounter
--- OUTSIDE RECORDS SUMMARY | 2024-05-15 11:03 | XMS_ITS | Encounter Summary ---
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 canagliflozin (INVOKANA) 300 mg tablet Take 1 Tablet by mouth daily. 02/05/2019 ergocalciferol (DRISDOL; VITAMIN D2) 1,250 mcg (50,000 [...] ABDOMEN TWO TIMES A DAY NEEDED 05/01/2018 folic acid (FOLVITE) 1 mg tablet Take 1 mg by mouth daily. Reported on 03/13/2017 01/08/2024 hydrocortisone 1 % cream Apply topically to affected area 2 times daily as needed for Other (vaginal irritation) 1 Tube 1 05/07/2015 12/19/2019 Miscellaneous Medication - See Admin Instructions Boric Acid, 600 mg one supp. nightly x 14 nights. 14 Each 0 08/24/2015 05/23/2019 Miscellaneous Medication - See Admin Instructions Boric Acid, 600 mg one suppository vaginally at bedtime once weekly. 12 Each 3 08/24/2015 05/23/2019 nitroglycerin 0.4 % (w/w) ointment Apply 1 application topically as needed. 03/05/2019 01/08/2024 POTASSIUM CHLORIDE ORAL Take 10 mEq by mouth 2 times daily. Reported on 03/13/2017 05/23/2019 Sodium Hypochlorite (DAKIN'S SOLUTION) 0.125 % solution 1 application by misc (non-drug; combo route) route daily. Cleanse left foot ulcer with dakins with dressing changes as instructed 1 Bottle 1 04/26/2019 05/23/2019 documented as of this encounter Discharge Disposition Disposition Code Departure Means Destination Auto Discharge Home documented in this encounter Plan of Treatment Upcoming Encounters Date Type Department Care Team (Late st Contact Info) Description 05/22/2024 10:00 EDT Office Visit [facility] Foot & Ankle Program - [address] [place], [place] [phone] Edwige Keller [address] [address] 07/18/2024 13:00 EDT Procedure visit [facility] Women's Services - [address] [phone] Jessica Murray NP 111 [facility], [facility], [address] [place] [address] documented as of this encounter Visit Diagnoses Not on filedocumented in this encounter Care Teams House Decorator Relationship Specialty Start Date End Date Ruth Munoz, MANAGER OF HEALTH [address] [place] [phone] PCP - General 04/26/19 06/19/23 documented as of this encounter
--- OUTSIDE RECORDS SUMMARY | 2024-05-15 11:03 | XMS_ITS | Encounter Summary ---
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 Foot & Ankle Program - [address] [phone] Edwige Keller DPM [address] [place] [address] 07/18/2024 13:00 EDT Procedure visit [facility] Women's Services - [address] [phone] Jessica Murray NP 111 [facility], [address] [place] [address] documented as of this encounter Visit Diagnoses Not on filedocumented in this encounter Care Teams Sales Development Manager Relationship Specialty Start Date End Date Ruth Munoz APRN [address] [place] [phone] PCP - General 04/26/19 06/19/23 documented as of this encounter
--- OUTSIDE RECORDS SUMMARY | 2024-05-15 11:03 | XMS_ITS | Encounter Summary ---
Author Organization [facility] Address [address] [place] [address] Care Team Providers Care Fishing Manager Name Role Phone Nanda Oh MD Primary Care Provider Unavailable Encounter Details Date Type Department Care Team (Late st Contact Info) Description 03/16/2018 Results Only [facility]- [facility] [phone] Cali Garcia MD [address] [place], [place] [phone] Social History Tobacco Use Types Packs/Day Years Used Date Smoking Tobacco: Never Alcohol Use Standard Drinks/Week Comments [...] [facility] - [place], [place] [phone] Edwige Keller, DPLilibeth [address] [place] [address] 07/18/2024 13:00 EDT Procedure visit [facility] Women's Services - [facility] [address] [place] [address] Jessica Murray NP 111 [facility] 4 [place] [address] documented as of this encounter Procedures Procedure Name Priority Date/Time Associated Diagnosis Comments SURGICAL PATHOLOGY Routine 03/16/2018 10 :56 EDT documented in this encounter Results * SURGICAL PATHOLOGY (03/16/2018 10:56 EDT) Pathology Report: SURGICAL PATHOLOGY REPORT Reports generated via electronic interface contain original data; however they are lacking the format of the original report. Caution should be taken when reading/interpret ing unformatted reports. Name: ? JO JONES ? Accession #: ? [id number] ? : ? 1965 (Age: 52) ??F ? Collect Date: ? 03/16/2018 ? Location: ? [facility] ? Receive Date: ? 03/17/2018 ? Provider: CALI GARCIA II, MD Copy to: NANDA OH MD ? Final Pathologic Diagnosis: A. ??COLON, DESCENDING, POLYP, BIOPSY: - Hyperplastic polyp. B. ??COLON, SIGMOID, POLYP, BIOPSY: - Tubular adenoma. Document reviewed and electronically signed by: RAYMUNDO CHOWDHURY MD Report ??Date: 03/21/2018 15:46 By the signature above, the attending physician certifies that he/she has personally conducted a gross and/or microscopic examination of the described specimens and rendered or confirmed the above diagnosis. Specimen(s) Received: A. ??Descending colon polyp B. ??Sigmoid colon polyp Clinical History: Hx colon polyps; FHx colon CA F; colon polyps Gross Description: A. ?Received in formalin labelled with proper patient identification (initials P, J) and descending colon polyp is a russell-white tissue (0.5 x 0.2 x 0.1 cm). Submitted in toto in A1. B. ?Received in formalin labelled with proper patient identification (initials P, J) and sigmoid colon polyp is a russell-white tissue (0.3 x 0.2 x 0.1 cm). Submitted in toto in B1. BERE Sanches (ASCP) 03/20/2018 7:44 AM End of Report [facility] 03/16/2018 10:5 6 EDT 03/17/2018 10:56 EDT Cali Garcia MD PATHOLOGY ORDERABLES [facility] [address] [place] [address] documented in this encounter Visit Diagnoses Not on filedocumented in this encounter Care Teams Fishing Manager Relationship Specialty Start Date End Date Nanda Oh MD PCP - General 05/08/09 05/20/18 documented as of this encounter
--- OUTSIDE RECORDS SUMMARY | 2024-05-15 11:03 | XMS_ITS | Encounter Summary ---
Author Organization [facility] Address [address] [place] [address] Care Team Providers Care Leather Goods Sales Representative Name Role Phone Patrick Clement MD Primary Care Provider [phone] Reason for Visit * Reason Onset Date Comments Advice Only 10/11/2018 Encounter Details Date Type Department Care Team (Late st Contact Info) Description 10/11/2018 Telephone [facility] Women's Services - [facility] [address] [place] [address] Sarita Davis RN Advice Only Social History Tobacco Use Types [...] encounter Miscellaneous Notes * Telephone Encounter - Sarita Davis RN - 10/11/2018 3723 EST TC from Martha requesting written information regarding lack of approved HPV testing methods in men,as she is in ongoing discussion with adult sons over whether they have been tested. Sent [employer] brochure in mail per pt request. Denies further needs/questions at this time. documented in this encounter Plan of Treatment Upcoming Encounters Date Type Department Care Team (Late st Contact Info) Description 05/22/2024 10:00 EDT Office Visit [facility] Foot & Ankle Program - [address] [address] Edwige Keller DPM [address] [place] [address] 07/18/2024 13:00 EDT Procedure visit [facility] Women's Services - [address] [phone] Jessica Murray NP [address] [facility], [address] [place] [address] documented as of this encounter Visit Diagnoses Not on filedocumented in this encounter Care Teams Leather Goods Sales Representative Relationship Specialty Start Date End Date Patrick Clement MD PCP - General 05/21/18 04/25/19 documented as of this encounter
--- OUTSIDE RECORDS SUMMARY | 2024-05-15 11:03 | XMS_ITS | Encounter Summary ---
Author Organization [facility] Address [address] [place] [address] Care Team Providers Care Upper Caser Name Role Phone Patrick Clement MD Primary Care Provider [phone] Reason for Visit * Reason Onset Date Comments Results 05/24/2018 Encounter Details Date Type Department Care Team (Late st Contact Info) Description 05/24/2018 Telephone [facility] Women's Services - [address] [address] Cathy Cook, RN Results Social History Tobacco Use Types Packs/Day [...] Miscellaneous Notes * Telephone Encounter - Cathy Cook, BRENDAN - 05/24/2018 1002 EDT Spoke with Martha, advised as below. She said already heard form someone & is just waiting for pap results (not yet available). * Telephone Encounter - Cathy Cook, RN - 05/24/2018 6626 EDT ----- Message from BERE Johnson sent at 05/24/2018 8:18 EDT ----- Please let pt know that her STI testing was negative. documented in this encounter Plan of Treatment Upcoming Encounters Date Type Department Care Team (Late st Contact Info) Description 05/22/2024 10:00 EDT Office Visit [facility] Foot & Ankle Program - [address] [address] Edwige Keller [address] [address] 07/18/2024 13:00 EDT Procedure visit [facility] Women's Services - [facility] [address] [place], [place] [phone] Jessica Murray NP 111 [facility], [address] [place] [address] documented as of this encounter Visit Diagnoses Not on filedocumented in this encounter Care Teams Upper Caser Relationship Specialty Start Date End Date Patrick Clement MD PCP - General 05/21/18 04/25/19 documented as of this encounter
--- OUTSIDE RECORDS SUMMARY | 2024-05-15 11:03 | XMS_ITS | Encounter Summary ---
Author Organization [facility] Address [address] [place] [address] Care Team Providers Care Eligibility Technician Name Role Phone Nanda Read MD Primary Care Provider Unavailable Reason for Visit * Reason Onset Date Comments Results 05/03/2016 Encounter Details Date Type Department Care Team (Late st Contact Info) Description 05/03/2016 Telephone [facility] Women's Services - [facility] [address] [place], [place] [address] Jessica Murray NP [address] [facility], [address] [place] [address] Results Social History Tobacco Use [...] Notes * Telephone Encounter - Jessica Murray FNP - 05/03/2016 1656 EDT Pt notified of colpo results negative for dysplasia. Plan is for cotesting due 03/2017. Any abnormalpap will need a colpo. documented in this encounter Plan of Treatment Upcoming Encounters Date Type Department Care Team (Late st Contact Info) Description 05/22/2024 10:00 EDT Office Visit [facility] Foot & Ankle Program - [address] [address] Edwige Keller DP [address] [place] [address] 07/18/2024 13:00 EDT Procedure visit [facility] Women's Services - [facility] [address] [place], [place] [phone] Jessica Murray RESIDENTIAL SOLAR CONSULTANT [address] [facility], [address] [place] [phone] documented as of this encounter Visit Diagnoses Not on filedocumented in this encounter Care Teams Eligibility Technician Relationship Specialty Start Date End Date Nanda Read MD PCP - General 05/08/09 05/20/18 documented as of this encounter
--- OUTSIDE RECORDS SUMMARY | 2024-05-15 11:03 | XMS_ITS | Encounter Summary ---
Author Organization [facility] Address [address] [place] [address] Care Team Providers Care Decorative Engraver Apprentice Name Role Phone Patrick Clement MD Primary Care Provider [phone] Encounter Details Date Type Department Care Team (Late st Contact Info) Description 05/22/2018 Phlebotomy Only [facility] [place] [address] [place] [address] Senior Digital Designer, Outpatient Routine screening for STI (sexually transmitted infection) (Primary Dx) Social History Tobacco Use Types [...] Info) Description 05/22/2024 10:00 EDT Office Visit [facility] Foot & Ankle Program - [place] [address] Edwige Keller, DPM [address] [place] [address] 07/18/2024 13:00 EDT Procedure visit [facility] Women's Services - [facility] [address], [place] [id number] Jessica Murray NP 111 [facility], [facility], [address] [place] [address] documented as of this encounter Procedures Procedure Name Priority Date/Time Associated Diagnosis Comments SYPHILIS SEROLOGY Routine 05/22/2018 12: 02 EDT Routine screening for STI (sexually transmitted infection) HEPATITIS C AB W REFLEX TO HCV RNA BY PCR Routine 05/22/2018 12:02 EDT Routine screening for STI (sexually transmitted infection) HIV 1/2 ANTIGEN AND ANTIBODY, 4TH GENERATION Routine 05/22/2018 12:02 EDT Routine screening for STI (sexually transmitted infection) documented in this encounter Results * HEPATITIS C AB W REFLEX TO HCV RNA BY PCR (05/22/2018 12:02 EDT) Hep C Ab w Rfx PCR HCSCR2 Negative Negative 05/23/2018 21:57 EDT [facility] Comment: The results of this assay can be falsely lowered due to the consumption of Biotin. Blood specimen (specimen) BLOOD SPECIMEN / Unknown 05/22/2018 12:02 EDT 05/22/2018 12:36 EDT Kassie Carreon PA-C CHEMISTRY & BL OOD GAS ORDERABLES [facility] [address] [place] [address] * SYPHILIS SEROLOGY (05/22/2018 12:02 EDT) Syphilis Serology Negative 05/23/2018 13:49 EDT [facility] Comment:Reference Range: Neg ative Blood specimen (specimen) BLOOD SPECIMEN / Unknown 05/22/2018 12:02 EDT 05/22/2018 12:36 EDT Kassie Carreon PA-C IMMUNOLOGY AND SEROLOGY ORDERABLES Performing Organization Address [facility] Co de Phone Number [facility] [address] [place] [address] * HIV 1/2 ANTIGEN AND ANTIBODY, 4TH GENERATION (05/22/2018 12:02 EDT) HIV 1/2 Antibody Negative Negative 05/23/20 18 12:27 EDT [facility] Comment: Fourth generation assay performed on the [place]. If acute HIV-1 infection is suspected in a high risk patient, submit plasma specimen for HIV-1 RNA quantification test. The results of this assay can be falsely lowered due to the consumption of Biotin. Blood specimen (specimen) BLOOD SPECIMEN / Unknown 05/22/2018 12:02 EDT 05/22/2018 12:36 EDT Kassie Carreon PA-C IMMUNOLOGY AND SEROLOGY ORDERABLES Performing Organization Address [facility] Co de Phone Number [facility] [address] [place] [address] documented in this encounter Visit Diagnoses Diagnosis Routine screening for STI (sexually transmitted infection)- Primary Screening examination for venereal disease documented in this encounter Care Teams Decorative Engraver Apprentice Relationship Specialty Start Date End Date Patrick Clement MD PCP - General 05/21/18 04/25/19 documented as of this encounter
--- OUTSIDE RECORDS SUMMARY | 2024-05-15 11:03 | XMS_ITS | Encounter Summary ---
Author Organization [facility] Address [address] [place] [address] Care Team Providers Care Materials Planning Analyst Name Role Phone Nanda Read MD Primary Care Provider Unavailable Encounter Details Date Type Department Care Team (Latest Contact Info) Description 03/16/2018 15:04 EDT - 03/16/2018 23:59 EDT Hospital Encounter [address] [address] Unknown, Provider, Discharge Disposition: Home or Self Care Social [...] 1 Tablet by mouth 4 times daily. ergocalciferol (DRISDOL; VITAMIN D2) 1,250 mcg (50,000 [...] needed for Pain. Takes 5 tabs daily folic acid (FOLVITE) 1 mg tablet Take [...] once weekly. 12 Each 3 08/24/2015 05/23/2019 POTASSIUM CHLORIDE ORAL Take 10 mEq by mouth 2 times daily. Reported on 03/13/2017 05/23/2019 documented as of this encounter Discharge Disposition Disposition Code Departure Means Destination Home or Self Intermediate documented in this encounter Plan of Treatment Upcoming Encounters Date Type Department Care Team (Late st Contact Info) Description 05/22/2024 10:00 EDT Office Visit [facility] Foot & Ankle Program - [address] [place] [address] Edwige Keller DPM [address] [place] [phone] 07/18/2024 13:00 EDT Procedure visit [facility] Women's Services - [address] [address] Jessica Murray, PIZZAMAKER 111 [facility], [address] [place] [phone] documented as of this encounter Visit Diagnoses Not on filedocumented in this encounter Care Teams Materials Planning Analyst Relationship Specialty Start Date End Date Nanda Read MD PCP - General 05/08/09 05/20/18 documented as of this encounter
--- OUTSIDE RECORDS SUMMARY | 2024-05-15 11:03 | XMS_ITS | Encounter Summary ---
Author Organization [facility] Address [address] [place] [address] Care Team Providers Care Kosher Inspector Name Role Phone Ruth Munoz APRN Primary Care Provider + Reason for Visit * Reason Comments Foot Problem Encounter Details Date Type Department Care Team (Late st Contact Info) Description 05/09/2019 13:00 EDT Office Visit [facility] Foot & Ankle Program - [address] [address] Edwige Keller, DP [address] [place] [address] Skin ulcer of left heel with fat layer exposed ([facility]) (Primary Dx); Type 2 diabetes mellitus with diabetic polyneuropathy, with long-term current use of insulin ([facility]) Social History Tobacco Use Types Packs/Day Years [...] as of this encounter Progress Notes * Krishna Dpm, Edwige M - 05/09/2019 1300 EDT Martha Benoit is a very pleasant 53 y.o. female patient who presents for follow up chronic left plantar central heel ulcer. She reports that this has been doing well. She believes it is getting smaller. She has been having the dressing changes as instructed. She has been staying off the foot using the wheelchair. She did get the MRI done, and we discussed the results over the phone. Overall she is feeling well denies any nausea, vomiting, fever, chills. She is presents today with her daughter, Debora. Patient Active Problem List Diagnosis Date Noted ??? Diabetes mellitus ([facility]) 08/11/2014 Priority: Medium ??? Vitamin D deficiency 01/28/2010 ??? Morbid obesity ([facility]) 01/22/2010 ??? Mild dysplasia of cervix ([facility] [...] ??? Diabetes Sister ??? Heart Disease Sister [place] at age 42 = ??? Diabetes Mother ??? Diabetes Brother ??? Diabetes Maternal Aunt ??? Diabetes Maternal Uncle Current Outpatient Medications Medication Sig Dispense Refill ??? baclofen (LIORESAL) 10 mg tablet Take 10 mg by mouth 4 times daily. ??? ergocalciferol (VITAMIN D) 50,000 unit capsule Take 50,000 Units by mouth twice a week. ??? folic acid (FOLVITE) 1 mg tablet Take 1 mg by mouth daily. Reported on 03/13/2017 ??? furosemide (LASIX) 40 mg tablet Take 40 mg by mouth daily. Reported on 03/13/2017 ??? gabapentin (NEURONTIN) 300 mg capsule Take 300 mg by mouth 3 times daily. ??? glipiZIDE (GLUCOTROL) 10 mg tablet Take 10 mg by mouth 2 times daily. ??? hydrocortisone 1 % cream Apply topically to affected area 2 times daily as needed for Other (vaginal irritation) (Patient not taking: Reported on 09/17/2018) 1 Tube 1 ??? insulin lispro (HUMALOG) [...] mg one supp. nightly x 14 nights. (Patient not taking: Reported on 09/17/2018) 14 Each 0 ??? Miscellaneous Medication - See Admin Instructions Boric Acid, 600 mg one suppository vaginally at bedtime once weekly. (Patient not taking: Reported on 04/26/2019) 12 Each 3 ??? omeprazole (PRILOSEC) 20 mg capsule Take 20 mg by mouth daily. ??? oxycodone-acetaminophen (PERCOCET) 5-325 mg per tablet Take 1 Tab by mouth every 4 hours as needed for Pain. Takes 5 tabs daily ??? POTASSIUM CHLORIDE ORAL Take 10 mEq by mouth 2 times daily. Reported on 03/13/2017 ??? Sodium Hypochlorite (DAKIN'S SOLUTION) 0.125 % solution 1 application by misc (non-drug; combo route) route daily. Cleanse left foot ulcer with dakins with dressing changes as instructed 1 Bottle1 No current facility-administered medications for this visit. Allergies Allergen Reactions ??? Codeine Nausea Only Per h /p Review of Systems A ten point review of systems was performed. Pertinent positives are listed below, all others are negative. Vital signs: vitals were not taken for this visit. PHYSICAL EXAM: General: AO x 3, NAD; presents today in wheelchair Lower extremity: Palpable DP and PT pulses. Skin temperature gradient within normal limits. Capillary filling time less than 3 seconds to all toes. Ulcer plantar central left heel, as pictured below.Probes deep but not to bone. Does not undermine. Does not tunnel. No fluid expressed. No pain on probing. No malodor. No necrosis. Fibro-granular wound base. Wound measures 7 x 2 x 5 mm deep. No other open lesions. Protective sensation absent. Unable to assess manual muscle testing on the left. Psoriatic plaques to both lower legs. ASSESSMENT: 1. Skin ulcer of left heel with fat layer exposed ([facility]) 2. Type 2 diabetes mellitus with diabetic polyneuropathy, with long-term current use of insulin ([facility]) No orders of the defined types were placed in this encounter. PLAN: Ms. Benoit presents today for follow-up chronic left heel ulcer. This is slightly improved since last visit. No signs of infection today. I did debride this, skin and subcutaneous tissue, with a 15 blade, less than 20 cm??. We reviewed her MRI. She has some fluid in the tissues, which is consistent with the packing that she had in for the procedure. No bone involvement. We discussed these findings. She is going to continue with the dressing changes. We will switch over to packing for dressing changes, as it does probe to deep but is very narrow. Instructions below. I will see her back in 2 weeks. She is going to continue to stay off of the foot using the wheelchair. She knows to call with any questions prior to follow-up and is happy with this plan. Instructions for VNA: Change dressing to left central heel ulcer 3 times per week. Cleanse wound with Dakin's solution. Pack wound with a 1/4 inch plain packing. Pack into wound where it probes 5 mm deep. Apply a gauze dressing to pad the area. If she cannot tolerate guaze wrap, ok to use mepilex border dressing over the packing. She is nonweightbearing on this side. She has follow up with me in 2 weeks. Portions of this document have been prepared with speech recognition software or keyboard data consultant techniques. Minor irregularities or keyboarding misprints may be present * Ida Carcamo LPN - 05/09/2019 1300 EDT Call to [facility] with wound care instruction, spoke with Nany, note faxed. Ida Carcamo LPN documented in this encounter Plan of Treatment Upcoming Encounters Date Type Department Care Team (Late st Contact Info) Description 05/22/2024 10:00 EDT Office Visit [facility] Foot & Ankle Program - [address] [address] Edwige Keller DPM [address] [place] [phone] 07/18/2024 13:00 EDT Procedure visit [facility] Women's Services - [address] [id number] Jessica Murray NP 111 [facility], [address] [place] [address] documented as of this encounter Visit Diagnoses Diagnosis Skin ulcer of left heel with fat layer exposed (HCC-CMS)- Primary Type 2 diabetes mellitus with diabetic polyneuropathy, with long-term current use of insulin ([facility]) documented in this encounter Care Teams Kosher Inspector Relationship Specialty Start Date End Date Ruth Munoz APRN [address] [place] [phone] PCP - General 04/26/19 06/19/23 documented as of this encounter
--- OUTSIDE RECORDS SUMMARY | 2024-05-15 11:03 | XMS_ITS | Encounter Summary ---
Author Organization [facility] Address [address] [place] [address] Care Team Providers Care Industrial Gas Production Operator Name Role Phone AlexanderAidanantony Mcelroy APRN Primary Care Provider + Reason for Visit * Reason Onset Date Comments Appointment Related 06/21/2019 Encounter Details Date Type Department Care Team (Late st Contact Info) Description 06/21/2019 Telephone [facility] Women's Services [facility] [address] [place], [place] [address] Jessica Murray NP 111 [facility], [address] [place] [address] Appointment Related Social History Tobacco [...] * Telephone Encounter - Lupe Nolasco - 06/21/2019 1146 EDT Reason for appointment or cancellation as described by patient: Patient called to schedule her colposcopy appointment. I explained that she needs to be on the vaginal estrogen cream treatment 3 timesweekly for 3 weeks prior to the procedure and that Kassie Carreon had already sent the prescription to her pharmacy. Date of appointment: 07/23/2019 Lupe Nolasco 06/21/2019 11:46 documented in this encounter Plan of Treatment Upcoming Encounters Date Type Department Care Team (Late st Contact Info) Description 05/22/2024 10:00 EDT Office Visit [facility] Foot & Ankle Program - [address] [place] [address] [address]ige Keller [address] [address] 07/18/2024 13:00 EDT Procedure visit [facility] Women's Services - [address] [phone] Jessica Murray NP 111 [facility], [address] [place] [address] documented as of this encounter Visit Diagnoses Not on filedocumented in this encounter Care Teams Industrial Gas Production Operator Relationship Specialty Start Date End Date Ruth Munoz, LARRY [address] [place] [phone] PCP - General 04/26/19 06/19/23 documented as of this encounter
--- OUTSIDE RECORDS SUMMARY | 2024-05-15 11:03 | XMS_ITS | Encounter Summary ---
Author Organization [facility] Address [address] [place] [address] Care Team Providers Care Paper Core Machine Operator Name Role Phone Ruth Munoz APRN Primary Care Provider + Reason for Visit * Reason Onset Date Comments Returning Call 05/03/2019 Encounter Details Date Type Department Care Team (Late st Contact Info) Description 05/03/2019 Telephone [facility] Foot & Ankle Program - [address] [phone] Edwige Keller, DP [address] [place] [address] Returning Call Social History Tobacco Use Types Packs/Day Years [...] encounter Miscellaneous Notes * Telephone Encounter - Edwige Keller Dpm - 05/03/2019 1237 EDT Spoke with Martha this afternoon regarding her lab work and MRI. Lab work was essentially normal. Her MRI images were reviewed and I do no see any evidence of bone involvement. Final MRI read is pending however. We will review this at her scheduled follow up appointment. She knows to call with any further questions prior to follow up. documented in this encounter Plan of Treatment Upcoming Encounters Date Type Department Care Team (Late st Contact Info) Description 05/22/2024 10:00 EDT Office Visit [facility] Foot & Ankle Program - [address] [place] [address] Edwige Keller [address] [place] [address] 07/18/2024 13:00 EDT Procedure visit [facility] Women's Services - [facility] [address] [place], [place] [id number] Jessica Murray NP 111 [facility], [address] [place] [address] documented as of this encounter Visit Diagnoses Not on filedocumented in this encounter Care Teams Paper Core Machine Operator Relationship Specialty Start Date End Date Ruth Munoz APRN [address] [place] [phone] PCP - General 04/26/19 06/19/23 documented as of this encounter
--- OUTSIDE RECORDS SUMMARY | 2024-05-15 11:03 | XMS_ITS | Encounter Summary ---
Author Organization [facility] Address [address] [place] [address] Care Team Providers Care Electrical Maintenance Mechanic Name Role Phone MunozRuth jerome Lilibeth JUAREZ Primary Care Provider + Encounter Details Date Type Department Care Team (Late st Contact Info) Description 06/20/2019 Orders Only [facility] Women's Services - [address] [phone] Kassie Carreon PA-C 111 [facility], [address] [place] [address] Social History Tobacco Use Types [...] Dispensed Refills Start Date End Da te estradiol (ESTRACE) 0.01 % (0.1 mg/gram) vaginal cream Place 1 g vaginally three times a week for 21 days. 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 Recommend colposcopy, vaginal estrogen 3 times weekly x 3 week, do not use for 2 days prior to colposcopy, escribed to her pharmacy. Pt currently driving, unable to speak to schedulers. Will call tomorrow to schedule appointment, ifpt does not call, can PSS please reach out to her to schedule a colposcopy for her. documented in this encounter Plan of Treatment Upcoming Encounters Date Type Department Care Team (Late st Contact Info) Description 05/22/2024 10:00 EDT Office Visit [facility] Foot & Ankle Program - [address] [place] [address] Edwige Keller DPM [address] [place] [phone] 07/18/2024 13:00 EDT Procedure visit [facility] Women's Services - [facility] [address] [place], [place] [phone] Jessica Murray NP 111 [facility], [facility], [address] [place] [address] documented as of this encounter Visit Diagnoses Not on filedocumented in this encounter Care Teams Electrical Maintenance Mechanic Relationship Specialty Start Date End Date Ruth Munoz APRN [address] [place] [address] PCP - General 04/26/19 06/19/23 documented as of this encounter
--- OUTSIDE RECORDS SUMMARY | 2024-05-15 11:03 | XMS_ITS | Encounter Summary ---
Author Organization [facility] Address [address] [place] [address] Care Team Providers Care Training And Development Coordinator Name Role Phone Patrick Clement MD Primary Care Provider [phone] Encounter Details Date Type Department Care Team (Late st Contact Info) Description 05/22/2018 Results Only [facility] Women's Services - [address] [phone] Kassie Carreon PA-C 111 [facility], [address] [place] [address] Social History Tobacco Use Types [...] [facility] - [address] [place] [address] Edwige Keller DPLilibeth [address] [place] [address] 07/18/2024 13:00 EDT Procedure visit [facility] Women's Services - [facility] [address] [place] [address] Jessica Murray NP 111 [facility], [address] [place] [address] documented as of this encounter Procedures Procedure Name Priority Date/Time Associated Diagnosis Comments PAP TEST- RESULT ONLY Routine 05/22/2018 0:00 EDT documented in this encounter Results * PAP TEST- RESULT ONLY (05/22/2018 0:00 EDT) Pathology Report: CYTOPATHOLOGY REPORT Reports generated via electronic interface contain original data; however they are lacking the format of the original report. Caution should be taken when reading/interpreti ng unformatted reports. Name: ? JO JONES ? Accession #: ? [id number] ? : ? 1965 (Age: 52) ??F ?Collect Date: ? 05/22/2018 ? Location: ? OBGYN ? Receive Date: ? 05/23/2018 ? Provider: KASSIE BLACKBURN Copy to: ? Final Report SPECIMEN ADEQUACY ? Satisfactory for Evaluation - transformation zone component present GENERAL CATEGORIZATION ? Negative for Intraepithelial Lesion or Malignancy ?? Previous Gynecologic Pathology: HPV: Hx persistent Treatment History: LEEP: s/p in past Other: Previous NIL Pap(s) Additional clinical information: Z01.419 V72.31 Specimen/Source: ??Pap Test, Cervix/Endocervix, ThinPrep Imaging System with manual evaluation Document reviewed and electronically signed by: ? ANDREW Holm(ASCP) ? Report ??Date: 06/06/2018 15:46 HPV with Pap Test ? Date Ordered: ? 06/06/2018 ? Status: ?? Signed Out ?Date Complete: ? 06/07/2018 ? By: ??System Interface ? Date Reported: ? 06/07/2018 ? Interpretation RESULT: Negative for HPV. No E6 or E7 mRNA is detected from HPV types 16,18,31,33,35, 39,45,51,52,56,58, 59,66, and 68 by teacher hearing impaired mediated amplification. Comments Document reviewed and electronically signed by: ? System Interface ? Report date: 06/07/2018 By the signature above, the attending physician certifies that he/she has personally conducted a gross and/or microscopic examination of the described specimens and rendered or confirmed the above diagnosis. End of Report [facility] 05/22/2018 05/23/2018 Kassie Carreon PA-C PATHOLOGY ROBINA GOLD [facility] [address] [place] [address] documented in this encounter Visit Diagnoses Not on filedocumented in this encounter Care Teams Training And Development Coordinator Relationship Specialty Start Date End Date Patrick Clement MD PCP - General 05/21/18 04/25/19 documented as of this encounter
--- OUTSIDE RECORDS SUMMARY | 2024-05-15 11:03 | XMS_ITS | Encounter Summary ---
Author Organization [facility] Address [address] [place] [address] Care Team Providers Care Sales Performance Manager Name Role Phone AlexanderAidanantony Mcelroy APRN Primary Care Provider + Reason for Visit * Reason Onset Date Comments Nail Problem 06/14/2019 Encounter Details Date Type Department Care Team (Late st Contact Info) Description 06/14/[address] [facility] Foot & Ankle Program - [address] [phone] Edwige Keller, [address] [place] [address] Nail Problem Social History Tobacco Use Types Packs/Day Years [...] Dispensed Refills Start Date End Da te ciclopirox (PENLAC) 8 % solution Apply to affected nails daily as instructed 1 Bottle 1 06/14/2019 documented in this encounter Miscellaneous Notes * Telephone Encounter - Edwige Keller Lilibeth - 06/14/2019 1606 EDT Spoke with Martha Benoit today. She recently lost her left second toenail. She does not recall any trauma but notes that it just fell off on its own. It is not currently painful. She had visiting nurselook at it today and also sent us a picture. This looks clean with no signs of infection. We gave her wound care instructions including soaking and antibiotic ointment. She also had concerns about her right great toenail. She has been having problems with fungus here. She is to use a topical antifungal, which she believes helped. She would like to try this again. She would also like to discuss possibility of oral antifungals. We discussed that we can talk about this at her follow-up appointmentin June. Prescription for ciclopirox was sent to her pharmacy. She knows to call with any questions or concerns prior to her follow-up appointment in 2 weeks and is happy with this plan. documented in this encounter Plan of Treatment Upcoming Encounters Date Type Department Care Team (Late st Contact Info) Description 05/22/2024 10:[address] [facility] Foot & Ankle Program - [address] [place] [address] Edwige Keller, [address] [address] 07/18/2024 13:[address] [facility] Women's Services - [facility] [address] [place], [place] [phone] Jessica Murray NP 111 [facility], [facility], [address] [place] [phone] documented as of this encounter Visit Diagnoses Not on filedocumented in this encounter Care Teams Sales Performance Manager Relationship Specialty Start Date End Date Ruth Munoz, [address] [place] [phone] PCP - General 04/26/19 06/19/23 documented as of this encounter
--- OUTSIDE RECORDS SUMMARY | 2024-05-15 11:03 | XMS_ITS | Encounter Summary ---
Author Organization [facility] Address [address] [place] [address] Care Team Providers Care Natural Gas Plant Supervisor Name Role Phone Ruth Munoz APRN Primary Care Provider + Reason for Visit * Reason Comments Foot Problem Encounter Details Date Type Department Care Team (Late st Contact Info) Description 06/27/2019 9:45 EDT Office Visit [facility] Foot & Ankle Program - [address] [address] Edwige Keller, [address] [place] [address] Ulcer of foot, left, with fat layer exposed ([facility]) (Primary Dx); Type 2 diabetes mellitus with diabetic polyneuropathy, with long-term current use of insulin ([facility]) Social [...] encounter Progress Notes * Edwige Keller - 06/27/2019 0934 EDT Martha Benoit is a very pleasant 53 y.o. female patient who presents for follow up chronic left heel ulcer. She reports that this has been doing well. It is about the same. She has not noticed any signs of infection. VNA has been coming for dressing changes. She has been trying to stay off the footis much as she is able. She reports that the left second toe has been looking okay since the nail was avulsed. The right great toenail is not painful. She has been applying antifungal here. Overall she is feeling well today. Patient Active Problem List Diagnosis Date Noted ??? Diabetes mellitus ([facility]) 08/11/2014 Priority: Medium ??? Vitamin D deficiency 01/28/2010 ??? Morbid obesity ([facility]) 01/22/2010 ??? Mild dysplasia of [...] Units by mouth twice a week. ??? estradiol (ESTRACE) 0.01 % (0.1 mg/gram) vaginal cream Place 1 g vaginally three times a week for 21 days. Do not use for 2 days prior to your colposcopy 1 Tube 0 ??? folic acid (FOLVITE) 1 mg [...] less than 3 seconds to all toes. Second toenail avulsed. Nailbed intact. No erythema or edema. No drainage, malodor, necrosis. Right great toenail well adhered to the nailbed. Mild thickening and discoloration distally. No erythema or edema. Ulcer plantar central left heel. ??Fibro-granular wound base.?Does not undermine.?Does not tunnel.??No??fluid??expressed. ??No painon probing. ??No malodor. ??No necrosis. ??Fibro-granular wound base. ??Wound measures 3 x 2 x 2??mm deep. ??No other open lesions. ??Protective sensation absent. ??Unable to assess manual muscle testing on the left. ??Psoriatic plaques to both lower legs. ASSESSMENT: 1. Ulcer of foot, left, with fat layer exposed ([facility]) 2. Type 2 diabetes mellitus with diabetic polyneuropathy, with long-term current use of insulin ([facility]) No orders of the defined types were placed in this encounter. PLAN: Ms. Benoit presents today for follow-up chronic left heel ulcer. This is slightly improved since last visit in terms of size. No signs of infection. I did debride this today, skin and subcutaneous tissue, less than 20 cm??. We discussed options going forward. She would like to continue with the current care. If this is not continue to improve, may consider a total contact cast. We reviewed what this would entail today. We also briefly discussed the nails. Left second toe with no signs of infection. Well-healed nail bed. Right great toenail with mild thickening distally. I offered to clip this back for her today, but she declined this. I cautioned her that if the nail does lift up, to be careful putting socks on, as this can avulse the nail. She feels like she is seeing an improvement with the topical antifungals and would like to continue with these. She also requests to have VNA cut down to 1 time a week. She feels comfortable doing it the other days. I am going to see her back in 3 weeks. She knows to call with any questions prior to follow-up and is happy with this plan. Instructions for VNA: Change dressing to left central heel ulcer 1 time per week. ??Ms. Benoit will change the other days of the week. Should be changed daily. Cleanse wound with Dakin's solution. Apply well padded gauze dressing or mepilex border dressing.?She is nonweightbearing on this??side.She has follow up with me in 3 weeks. Portions of this document have been prepared with speech recognition software or keyboard senior data modeler techniques. Minor irregularities or keyboarding misprints may be present * Ida Carcamo LPN - 06/27/2019 0945 EDT Note faxed to [facility] LOULOU HAJI as well with new dressing orders. Ida Carcamo LPN documented in this encounter Plan of Treatment Upcoming Encounters Date Type Department Care Team (Late st Contact Info) Description 05/22/2024 10:00 EDT Office Visit [facility] Foot & Ankle Program - [address] [address] Edwige Keller, [address] [phone] 07/18/2024 13:00 EDT Procedure visit [facility] Women's Services - [facility] [address] [place], [place] [phone] Jessica Murray NP 111 [facility], [facility], [address] [place] [address] documented as of this encounter Visit Diagnoses Diagnosis Ulcer of foot, left, with fat layer exposed ([facility])- Primary Type 2 diabetes mellitus with diabetic polyneuropathy, with long-term current use of insulin ([facility]) documented in this encounter Care Teams Natural Gas Plant Supervisor Relationship Specialty Start Date End Date Ruth Munoz APRN [address] [place] [phone] PCP - General 04/26/19 06/19/23 documented as of this encounter
--- OUTSIDE RECORDS SUMMARY | 2024-05-15 11:03 | XMS_ITS | Encounter Summary ---
Author Organization [facility] Address [address] [place] [address] Care Team Providers Care Lead Manufacturing Engineer Name Role Phone Nanda Read MD Primary Care Provider Unavailable Encounter Details Date Type Department Care Team (Late st Contact Info) Description 05/16/2017 Results Only [facility] Women's Services - [address] [phone] Taco Cornejo MD 111 [facility], [address] [place] [address] Social History Tobacco Use Types [...] [facility] [address] [facility] [place] [address] Edwige Keller DPM [address] [place] [address] 07/18/2024 13:00 EDT Procedure visit [facility] Women's Services - [facility] [address] [place] [address] Jessica Murray, POLO [address] [facility], [address] [place] [address] documented as of this encounter Procedures Procedure Name Priority Date/Time Associated Diagnosis Comments SURGICAL PATHOLOGY Routine 05/16/2017 14 :36 EDT documented in this encounter Results * SURGICAL PATHOLOGY (05/16/2017 14:36 EDT) Pathology Report: SURGICAL PATHOLOGY REPORT Reports generated via electronic interface contain original data; however they are lacking the format of the original report. Caution should be taken when reading/interpret ing unformatted reports. Name: ? JO JONES ? Accession #: ? [id number] ? : ? 1965 (Age: 51) ??F ? Collect Date: ? 05/16/2017 ? Location: ? OBGYN ? Receive Date: ? 05/17/2017 ? Provider: TACO CORNEJO MD Copy to: NANDA READ MD ? Final Pathologic Diagnosis: ENDOCERVIX, CURETTAGE: - Fragments of benign endocervical mucosa with squamous metaplasia. Document reviewed and electronically signed by: RJ PACHECO MD Report ??Date: 05/19/2017 13:37 By the signature above, the attending physician certifies that he/she has personally conducted a gross and/or microscopic examination of the described specimens and rendered or confirmed the above diagnosis. Specimen(s) Received: ECC Clinical History: HPV pos; clinical diagnosis code: ??R87.810 Gross Description: ? Received in formalin labelled with proper patient identification (initials P, J) and ECC is an aggregate of dusky brown-green mucus, 0.7 x 0.7 x 0.4 cm. Entirely submitted in 1. BERE Kunz (ASCP) 05/17/2017 5:39 PM End of Report [facility] 05/16/2017 14:3 6 EDT 05/17/2017 14:36 EDT Taco Cornejo MD PATHOLOGY ORDERABL ES [facility] [address] [place] [address] documented in this encounter Visit Diagnoses Not on filedocumented in this encounter Care Teams Lead Manufacturing Engineer Relationship Specialty Start Date End Date Nanda Read MD PCP - General 05/08/09 05/20/18 documented as of this encounter
--- OUTSIDE RECORDS SUMMARY | 2024-05-15 11:03 | XMS_ITS | Encounter Summary ---
Author Organization [facility] Address [address] [place] [address] Care Team Providers Care Ornamental Painter Name Role Phone Nanda Read MD Primary Care Provider Unavailable Reason for Visit * Reason Comments Gynecologic Exam Encounter Details Date Type Department Care Team (Late st Contact Info) Description 03/13/2017 9:30 EDT Office Visit [facility] Women's Services - [address] [phone] Kassie Carreon PA-C 111 [facility], [address] [place] [phone] Vaginal itching (Primary Dx); Cervical dysplasia; Encounter for gynecological examination without abnormal finding Discharge Disposition: Auto Discharge Social History Tobacco [...] Sign Reading Time Taken Comments Blood Pressure 110/68 03/13/2017 0944 EDT Pulse - - Temperature - - Respiratory Rate - - Oxygen Saturation - - Inhaled Oxygen Concentration - - Weight 80.1 kg (176 lb 9.6 oz) 03/13/2017 0944 E DT Height 160 cm (5' 2.99) 03/13/2017 0944 EDT Body Mass Index 31.29 03/13/2017 0944 EDT documented in this encounter Functional Status [...] as of this encounter Discharge Diagnoses Diagnosis Z01.419 Encounter for gynecological examination (general) (routine) without abnormal findings-Z01.419[ICD-10-CM] N87.9 Dysplasia of cervix uteri, unspecified-N87.9[ICD-10-CM] L29.8 Other pruritus-L29.8[ICD-10-CM] documented in this encounter Discharge Disposition Disposition Code Departure Means Destination Auto Discharge documented in this encounter Progress Notes * Kassie Carreon PA - 03/14/2017 0917 EDT Spoke with Martha, let her know that vagintis exam shows yeast, persistent after 1 fluconazole. She used some clindamycin also that she had left from a prior prescription, advised that this is not appropriate for a yeast infection. Terazol 3, double dose (for 6 nights) escribed to her pharmacy. Advised to call back if persistent symptoms. * Kassie Carreon PA - 03/13/2017 0930 EDT Subjective: Patient ID: Martha Benoit is an 51 y.o. female. Chief Complaint Patient presents with ??? Gynecologic Exam Duplicate note, see other note. HPI Chief complaint: HPI: Patient Active Problem List Diagnosis ??? Mild dysplasia of cervix (AIDEN I) ??? Dysplasia of vagina ??? Morbid obesity ??? Vitamin D deficiency ??? Diabetes mellitus Past Medical History: Diagnosis Date ??? Unspecified cerebral artery occlusion with cerebral infarction Past Surgical History: Procedure Laterality Date ??? CERVIX LESION DESTRUCTION 07/15/2009 ??? GASTRIC BYPASS SURGERY 01/04/16 ??? LEEP 07/15/2009 ??? TUBAL LIGATION Family History Problem Relation Age of Onset ??? Colon Cancer Father ??? Diabetes Father ??? Stroke Father ??? Cervical Cancer Sister ??? Diabetes Sister ??? Heart Disease Sister [place] at age 42 = ??? Diabetes Mother ??? Diabetes Brother ??? Diabetes Maternal Aunt ??? Diabetes Maternal Uncle Social Social History Substance Use Topics ??? Smoking status: Never Smoker ??? Smokeless tobacco: None ??? Alcohol use No Current Outpatient Prescriptions on File Prior to Visit Medication Sig Dispense Refill ??? baclofen (LIORESAL) [...] (vaginal irritation) (Patient not taking: Reported on 03/13/2017) 1 Tube 1 ??? insulin lispro (HUMALOG) 100 unit/mL injection Inject 20 Units into the skin 3 times daily before meals. ??? lidocaine 5 % (LIDODERM) 5 % patch Place 1 Patch onto the skin daily. ??? metformin (GLUCOPHAGE) 500 mg tablet Take 500 mg by mouth 3 times daily before meals. ??? Miscellaneous Medication - See Admin Instructions Boric Acid, 600 mg one supp. nightly x 14 nights. 14 Each 0 ??? Miscellaneous Medication - See Admin Instructions Boric Acid, 600 mg one suppository vaginally at bedtime once weekly. 12 Each 3 ??? omeprazole (PRILOSEC) 20 mg capsule Take 20 mg by mouth daily. ??? oxycodone-acetaminophen (PERCOCET) 5-325 mg per tablet Take 1 Tab by mouth every 4 hours as needed for Pain. Takes 5 tabs daily ??? POTASSIUM CHLORIDE ORAL Take 10 mEq by mouth 2 times daily. Reported on 03/13/2017 No current facility-administered medications on file prior to visit. Allergies Allergen Reactions ??? Codeine Nausea Only Per h /p Review of Systems - See HPI Objective: BP 110/68 Ht 160 cm (62.99) Wt 80.1 kg (176 lb 9.6 oz) BMI 31.29 kg/m2 Physical Exam Assessment: Plan: There are no diagnoses linked to this encounter. BERE Johnson * Kassie Carreon PA - 03/13/2017 2510 EDT Subjective: Patient ID: Martha Benoit is an 51 y.o. female. Chief Complaint Patient presents with ??? Gynecologic Exam HPI Chief complaint: HPI: Martha Benoit is a 51 y.o. 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 Post menopausal, no vaginal bleeding Using NA for contraception. Last pap smear: last year, NIL, positive HR HPV HIstory of recurrent cervical dysplasia: 08/15/2009, Martha underwent a LEEP and laser of posterior wall of the vagina because of persistent LGSIL. Pap smear on 12/2009 demonstrated ASCUS and pap smearfrom 06/2010 and 11/2010, 05/2011, 11/2011 and [id number] were negative for any dysplasia or malignancy, however her pap smear in 05/2012 was positive for HPV, and a plan was made to repeat her pap smear in6 months This was repeated in 01/2013, and was NIL and negative for HPV. At that point, we had recommended that she could have a repeat pap smear in 1 year. When she returned for her pap smear last year, at that time it was again NIL, but was positive for HPV.?? She underwent a colposcopy on 04/08/14, boipsy at that time showed AIDEN 1, and recommendation made to follow up with pap/HPV in one year. This ws done 2 years ago, and returned as NIL/negative HPV. Follow up pap again last year was NIL and positive for HR HPV, colposcopy in April,, biopsy benign. Plan for follow up pap and HPV in ino year, so she is here for this today. History of STDs: no concerns, not sexually active Vaginal complaints: itching, burning in the past week. Took a diflucan that she had at home, and used cream, which sounds like clindamycin cream. Symptoms are better today. Other complaints: none Other concerns: none Has undergone gastric bypass surgery. Has lost weight, but does not feel that it had the effect on her glycemic control that she had hoped it would and also continues to have limited mobility due to muscle weakness, ambulates with a walker. Health Maintenance Mammogram: has them done at [facility] Colonoscopy: utd Cholesterol screening: through pcp DEXA: NA Immunizations: Tetanus: utd Gardasil NA Social history: reports that she has never smoked. She does not have any smokeless tobacco history on file. The patient states she drinks rare per week. Employment history/work hazards none Exercise: limited Calcium:good diet Vitamin D: diet Folic Acid: diet Bicycle helmet use:NA Wears seatbelts: yes Patient Active Problem List Diagnosis ??? Mild dysplasia of cervix (AIDEN I) ??? Dysplasia of vagina ??? Morbid obesity ??? Vitamin D deficiency ??? Diabetes mellitus Past Medical History: Diagnosis Date ??? Unspecified cerebral artery occlusion with cerebral infarction Past Surgical History: Procedure Laterality Date ??? CERVIX LESION DESTRUCTION 07/15/2009 ??? GASTRIC BYPASS SURGERY 01/04/16 ??? LEEP 07/15/2009 ??? TUBAL LIGATION Family History Problem Relation Age of Onset ??? Colon Cancer Father ??? Diabetes Father ??? Stroke Father ??? Cervical Cancer Sister ??? Diabetes Sister ??? Heart Disease Sister [place] at age 42 = ??? Diabetes Mother ??? Diabetes Brother ??? Diabetes Maternal Aunt ??? Diabetes Maternal Uncle Social Social History Substance Use Topics ??? Smoking status: Never Smoker ??? Smokeless tobacco: None ??? Alcohol use No Current Outpatient Prescriptions on File Prior to Visit Medication Sig Dispense Refill ??? baclofen (LIORESAL) [...] (vaginal irritation) (Patient not taking: Reported on 03/13/2017) 1 Tube 1 ??? insulin lispro (HUMALOG) 100 unit/mL injection Inject 20 Units into the skin 3 times daily before meals. ??? lidocaine 5 % (LIDODERM) 5 % patch Place 1 Patch onto the skin daily. ??? metformin (GLUCOPHAGE) 500 mg tablet Take 500 mg by mouth 3 times daily before meals. ??? Miscellaneous Medication - See Admin Instructions Boric Acid, 600 mg one supp. nightly x 14 nights. 14 Each 0 ??? Miscellaneous Medication - See Admin Instructions Boric Acid, 600 mg one suppository vaginally at bedtime once weekly. 12 Each 3 ??? omeprazole (PRILOSEC) 20 mg capsule Take 20 mg by mouth daily. ??? oxycodone-acetaminophen (PERCOCET) 5-325 mg per tablet Take 1 Tab by mouth every 4 hours as needed for Pain. Takes 5 tabs daily ??? POTASSIUM CHLORIDE ORAL Take 10 mEq by mouth 2 times daily. Reported on 03/13/2017 No current facility-administered medications on file prior to visit. Allergies Allergen Reactions ??? Codeine Nausea Only Per h /p Review of Systems Constitutional: Negative. HENT: Negative. Eyes: Negative. Respiratory: Negative. Cardiovascular: Negative. Gastrointestinal: Negative. Endocrine: Negative. Genitourinary: Negative. Musculoskeletal: Negative. Skin: Negative. Allergic/Immunologic: Negative. Neurological: Negative. Hematological: Negative. Psychiatric/Behavioral: Negative. - See HPI Objective: BP 110/68 Ht 160 cm (62.99) Wt 80.1 kg (176 lb 9.6 oz) BMI 31.29 kg/m2 Physical Exam Constitutional: She is oriented to [...] motion tenderness, no discharge and no friability. Uterus is not deviated, not enlarged, not fixed and not tender. Musculoskeletal: Normal range of motion. Lymphadenopathy: She has no cervical adenopathy. She has no axillary adenopathy. Neurological: She is alert and oriented to person, place, and time. Skin: Skin is warm and dry. No erythema. No pallor. Psychiatric: She has a normal mood and affect. Her behavior is normal. Judgment and thought contentnormal. 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 Plan: There are no diagnoses linked to this encounter. Pap sent with HPV regardless, if NIL/negative, per colposcopy clinic, repeat in 3 years, then routine screening. If positive, return for colposcopy. Vaginitis exam sent to rule out yeast given recent vaginal itching. Self breast awareness, yearly mammogram. Kassie Lauri, PA documented in this encounter Plan of Treatment Upcoming Encounters Date Type Department Care Team (Late st Contact Info) Description 05/22/2024 10:00 EDT Office Visit [facility] Foot & Ankle Program - [address] [address] Edwige Keller DPM [address] [place] [address] 07/18/2024 13:00 EDT Procedure visit [facility] Women's Services - [facility] [address] [place], [place] [phone] Jessica Murray NP 111 [facility], [facility], [address] [place] [address] Scheduled Orders Name Type Priority Associated Diagnoses Orde r Schedule PAP TEST- ORDER ONLY Pathology Routine Cervical dysplasia Ordered: 03/13/2017 documented as of this encounter Procedures Procedure Name Priority Date/Time Associated Diagnosis Comments ZZVAGINITIS EXAM Routine 03/13/2017 14:4 9 EDT Vaginal itching documented in this encounter Results * VAGINITIS EXAM (03/13/2017 14:49 EDT) Gram Smear Result Yeast forms present 03/13/2017 18:15 EDT [facility] Gram Smear Result Smear NOT consistent with bacterial vaginosis. 03/13/2017 18:15 EDT [facility] Result No Trichomonas antigen detected. 03/13/2017 16:30 EDT [facility] Specimen of unknown material (specimen) VAGINAL STRUCTURE / Unknown 03/13/2017 14:49 EDT 03/13/2017 15:41 EDT Comment:Specimen submitted o n a flocked swab. Kassie Carreon PA-C MICROBIOLOGY - GENERAL ORDERABLES [facility] [address] [place] [address] documented in this encounter Visit Diagnoses Diagnosis Vaginal itching- Primary Pruritus of genital organs Cervical dysplasia Dysplasia of cervix, unspecified Encounter for gynecological examination without abnormal finding Routine gynecological examination documented in this encounter Care Teams Ornamental Painter Relationship Specialty Start Date End Date Nanda Read MD PCP - General 05/08/09 05/20/18 documented as of this encounter
--- OUTSIDE RECORDS SUMMARY | 2024-05-15 11:03 | XMS_ITS | Encounter Summary ---
Author Organization [facility] Address [address] [place] [address] Care Team Providers Care Quality Assurance Monitor Chassis Name Role Phone AlexanderAidanantony Mcelroy APRN Primary Care Provider + Reason for Visit * Reason Comments Procedure Colposcopy Encounter Details Date Type Department Care Team (Late st Contact Info) Description 07/23/2019 15:00 EDT Office Visit [facility] - [facility] [address], [place] [address] Jessica Murray NP [address] [facility], [address] [place] [address] Cervical 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 (Primary Dx) Discharge Disposition: Auto Discharge Social History Tobacco [...] Sign Reading Time Taken Comments Blood Pressure 118/66 07/23/2019 1414 EDT Pulse - - Temperature - - Respiratory Rate - - Oxygen Saturation - - Inhaled Oxygen Concentration - - Weight 81.6 kg (180 lb) 07/23/2019 1414 EDT Height 160 cm (5' 2.99) 07/23/2019 1414 EDT Body Mass Index 31.89 07/23/2019 1414 EDT documented in this encounter Functional Status [...] as of this encounter Discharge Diagnoses Diagnosis R87.810 Cervical 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-R87.810[ICD-10-CM] documented in this encounter Discharge Disposition Disposition Code Departure Means Destination Auto Discharge documented in this encounter Progress Notes * Jessica Murray NECKTIE CENTRALIZING MACHINE OPERATOR - 07/23/2019 1500 EDT Images from the original note were not included. Sent by BERE Johnson Colposcopy Procedure Note 53 y.o. Indications: 53 y/o postmenopausal, woman presents for repeat colposcopy. H/o Type 2 DM, uses rolling walker due to neuropathy. History of cervical cytology, colposcopy, treatment: 06/2009, [...] bx, ECC, and right vaginal wall biopsy Current contraception postmenopausal Menopausal Status: Postmenopausal, Age at Menopause pt states years Currently : No test none Prior Hysterectomy: No non-smoker HIV: No Received Gardasil vaccine: n/a Procedure Details The risks and benefits of the procedure and written informed consent obtained. Vulva inspected. Speculum placed in vagina and visualization of cervix achieved. Vagina and cervix soaked with acetic acid solution. Cervix and vagina painted with Lugol's solution. Exam was chaperoned by Analy Beaulieu MA Image: Cervical colposcopy: Visualization of the cervix: Fully Visualized Visualization of the SCJ: Not Fully Visualized Acetowhite Changes: No Normal Colposcopic Findings: Abnormal Colposcopic Findings: Lesions Present: Yes Location of Lesion: 8 oclock, Lugols negative tortoiseshell uptake o'clock Lesion at the SCJ: No Vaginalcolposcopy: Right posterior vaginal wall with Lugols negative tortoiseshell uptake. Vulvar inspection: No visible lesions. Clinical Impressions: Colposcopy: Low Grade, possible VAIN Specimens: Cervix: 8 O'Clock, ECC: Curettage, [place], right Vaginal Wall Final Pathologic Diagnosis: A. ENDOCERVIX, BIOPSY: - Rare benign endocervical glands and detached fragments of benign squamous epithelium. See comment. B. CERVIX, 8 O'CLOCK, BIOPSY: - Detached fragments of squamous mucosa with reactive atypia; background acute and chronic inflammation. C. VAGINAL WALL, RIGHT POSTERIOR, BIOPSY: - Squamous mucosa with reactive atypia; background acute and chronic inflammation. ?? Comment: Deeper levels of A were examined. Document reviewed and electronically signed by: MEETA AKHTAR MD Complications: None. Plan: Patient will be called with pathology results and recommendations next week. Instructions sheet given to patient. Jessica Murray NP Telephone call to patient notifying her of [...] colposcopy in 1 year. Added to tickler. Jessica Murray NP CC: BERE Johnson documented in this encounter Plan of Treatment Upcoming Encounters Date Type Department Care Team (Late st Contact Info) Description 05/22/2024 10:00 EDT Office Visit [facility] - [address] [address] Edwige Keller [address] [address] 07/18/2024 13:00 EDT Procedure visit [facility] - [address] [id number] Jessica Murray NP [address] [facility], [address] [place] [id number] Scheduled Orders Name Type Priority Associated Diagnoses Orde r Schedule SURGICAL PATHOLOGY- ORDER ONLY Pathology Routine Cervical 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 Ordered: 07/23/2019 documented as of this encounter Visit Diagnoses Diagnosis Cervical 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- Primary documented in this encounter Care Teams Quality Assurance Monitor Chassis Relationship Specialty Start Date End Date Ruth Munoz, LARRY [address] [place] [address] PCP - General 04/26/19 06/19/23 documented as of this encounter
--- OUTSIDE RECORDS SUMMARY | 2024-05-15 11:03 | XMS_ITS | Encounter Summary ---
Author Organization [facility] Address [address] [place] [address] Care Team Providers Care Platinumsmith Name Role Phone Patrick Clement MD Primary Care Provider [phone] Reason for Visit * Reason Comments Well Woman Exam PAP and HPV due in T kl Encounter Details Date Type Department Care Team (Late st Contact Info) Description 05/22/2018 11:00 EDT Office Visit [facility] Women's Services - [address] [address] Kassie Carreon PA-C [address] [place] [address], [facility] [address] [place] [address] Routine screening for STI (sexually transmitted infection) (Primary Dx); Encounter for gynecological examination without abnormal finding; Cervical 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 Discharge Disposition: Auto Discharge Social History Tobacco [...] Sign Reading Time Taken Comments Blood Pressure 104/60 05/22/2018 1101 EDT Pulse - - Temperature - - Respiratory Rate - - Oxygen Saturation - - Inhaled Oxygen Concentration - - Weight 80.2 kg (176 lb 12.8 oz) 05/22/2018 1101 EDT Height 160 cm (5' 2.99) 05/22/2018 1101 EDT Body Mass Index 31.33 05/22/2018 1101 EDT documented in this encounter Functional Status [...] as of this encounter Discharge Diagnoses Diagnosis Z11.3 Encounter for screening for infections with a predominantly sexual mode of transmission-Z11.3[ICD-10-CM] Z01.419 Encounter for gynecological examination (general) (routine) without abnormal findings-Z01.419[ICD-10-CM] R87.810 Cervical 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-R87.810[ICD-10-CM] documented in this encounter Discharge Disposition Disposition Code Departure Means Destination Auto Discharge documented in this encounter Progress Notes * Kassie Carreon PA - 05/22/2018 1100 EDT Subjective: Patient ID: Martha Benoit is an 52 y.o. female. Chief Complaint Patient presents with ??? Well Woman Exam PAP and HPV due in Tickler HPI Chief complaint: HPI: Martha Benoit is a 52 y.o. 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 She is post menopausal, and denies any vaginal bleeding Using NA for contraception. Last [...] here for this today. History of STDs: HPV only. She requests full STI screening today, as she is in a relationship, and may become sexually active. She is concerned about her history of HPV, and how this may impact her partner. Vaginal complaints: none Other complaints: none Other concerns: none Health Maintenance Pap/HPV: 03/13/17 neg/pos HPV Dexa: n/a Mammo: has had them done at [facility] in the past, but has not had one in recent yearsas she had to udnergo a workup for a finding in the past which turned out to be fine, she is not currently interested in having a mammogram. Colonoscopy: utd Immunizations: Tetanus: utd Gardasil NA Social history: reports that she has never smoked. She has never used smokeless tobacco. The patient states she drinks rare per week. Employment history/work hazards none Exercise: tries to be active, mobility is limited. Has lost about 80 pounds following bariatric surgery Calcium:good diet Vitamin D: good diet Folic Acid: diet Bicycle helmet use:NA Wears seatbelts: yes Patient Active Problem List Diagnosis ??? Mild dysplasia of cervix (AIDEN I) ??? Morbid obesity (HCC-CMS) ??? Vitamin D deficiency ??? Diabetes mellitus ([facility]-CMS) Past Medical History: Diagnosis Date ??? Unspecified [...] Never Smoker ??? Smokeless tobacco: Never Used ??? Alcohol use No Current Outpatient Prescriptions [...] 14 nights. (Patient not taking: Reported on 05/16/2017) 14 Each 0 ??? Miscellaneous Medication - See Admin Instructions Boric Acid, 600 mg one suppository vaginally at bedtime once weekly. (Patient not taking: Reported on 05/16/2017) 12 Each 3 ??? omeprazole (PRILOSEC) 20 [...] Psychiatric/Behavioral: Negative. - See HPI Objective: BP 104/60 Ht 160 cm (62.99) Wt 80.2 kg (176 lb 12.8 oz) BMI 31.33 kg/m2 Physical Exam Constitutional: She is oriented [...] normal. Judgment and thought contentnormal. Assessment: Yearly client server developer exam History of persistent HPV. Plan: There are no diagnoses linked to this encounter. 1. Pap smear done with HPV regardless per Dr Lubin's plan from last year. If HPV persists positive, we will reflex for 16/18. If negative for 16/18, can consider deferring colposcopy for every 2 years given the multiple colposcopies and biopsies that were benign. Of note, Martha is hesitant to do this as she prefers to be a little bit more proactive in terms of followup and desires colposcopy sooner. We will await her Pap and HPV result and discuss follow up plan at that time. 2. Per request, a ThinPrep GC, chlamydia sent and also will go to the lab for HIV, RPR and hepatitis C for STI screening. 3. A lengthy discussion with the patient about the nature of HPV and absolutely respect her concernabout notifying her partner of this and the possibility of her partner acquiring HPV as well. Discussed that this is a very prevalent infection and that the majority of the people who have been sexually active have likely seen HPV in the past. Therefore, it is unknown whether or not her partner currently has it or has had it in the past. Discussed that we do not routinely test men for this. Discussed that full disclosure is always appropriate, but for many people the presence of HPV does not affect their decision as far as forming new sexual relationships. 4. Breast exam performed today and self-breast awareness promoted. I encouraged the patient to get a mammogram, but as above she does not want to do that. 5. We will followup Pap smear results and then proceed accordingly. BERE Johnson documented in this encounter Plan of Treatment Upcoming Encounters Date Type Department Care Team (Late st Contact Info) Description 05/22/2024 10:00 EDT Office Visit [facility] - [facility] [address] [place] [address] Edwige Keller DPM [address] [place] [address] 07/18/2024 13:00 EDT Procedure visit [facility] - [facility] [address] [place] [address] Jessica Murray, POLO [address] [facility], [address] [place] [address] Scheduled Orders Name Type Priority Associated Diagnoses Orde r Schedule PAP TEST- ORDER ONLY Pathology Routine Encounter for gynecological examination without abnormal finding Ordered: 05/22/2018 SCREENING PAP SMEAR;OBTAIN,PREP,CON VEY TO LAB Procedures Routine Encounter for gynecological examination without abnormal finding Ordered: 05/22/2018 documented as of this encounter Procedures Procedure Name Priority Date/Time Associated Diagnosis Comments CHLAMYDIA/N. GONORRHOEAE AMPLIFIED NUCLEIC ACID, THINPREP Routine 05/22/2018 11:38 EDT Routine screening for STI (sexually transmitted infection) documented in this encounter Results * HEPATITIS C AB W REFLEX TO HCV RNA BY PCR (05/22/2018 12:02 EDT) Pathologist [facility] Hep C Ab w Rfx PCR HCSCR2 Negative Negative 05/23/2018 21:57 EDT [facility] Comment: The results of this assay can be falsely lowered due to the consumption of Biotin. Blood specimen (specimen) BLOOD SPECIMEN / Unknown 05/22/2018 12:02 EDT 05/22/2018 12:36 EDT Kassie Carreon PA-C CHEMISTRY & BL OOD GAS ORDERABLES [facility] [address] [place] [address] * SYPHILIS SEROLOGY (05/22/2018 12:02 EDT) Syphilis Serology Negative 05/23/2018 13:49 EDT [facility] Comment:Reference Range: Neg ative Blood specimen (specimen) BLOOD SPECIMEN / Unknown 05/22/2018 12:02 EDT 05/22/2018 12:36 EDT Kassie Carreon PA-C IMMUNOLOGY AND SEROLOGY ORDERABLES Performing Organization Address City/[facility]/ZIP Co de Phone Number [facility] [address] [place] [address] * HIV 1/2 ANTIGEN AND ANTIBODY, 4TH GENERATION (05/22/2018 12:02 EDT) HIV 1/2 Antibody Negative Negative 05/23/20 18 12:27 EDT [facility] Comment: Fourth generation assay performed on the Siemens Leap Medicalaur. If acute HIV-1 infection is suspected in a high risk patient, submit plasma specimen for HIV-1 RNA quantification test. The results of this assay can be falsely lowered due to the consumption of Biotin. Blood specimen (specimen) BLOOD SPECIMEN / Unknown 05/22/2018 12:02 EDT 05/22/2018 12:36 EDT Kassie Carreon PA-C IMMUNOLOGY AND SEROLOGY ORDERABLES Performing Organization Address [facility] Co de Phone Number [facility] [address] [place] [address] * CHLAMYDIA/N. GONORRHOEAE AMPLIFIED RNA, THINPREP (05/22/2018 11:38 EDT) Chlamydia Result Negative 05/23/2018 14:28 EDT [facility] GC Result Negative 05/23/2018 14:28 EDT [facility] Specimen of unknown material (specimen) CERVIX UTERI STRUCTURE / Unknown 05/22/2018 11:38 EDT 05/23/2018 9:09 EDT Kassie Carreon PA-C MICROBIOLOGY - GENERAL ORDERABLES Performing Organization Address City/[facility]/ZIP Co de Phone Number [facility] [address] [place] [phone] documented in this encounter Visit Diagnoses Diagnosis Routine screening for STI (sexually transmitted infection)- Primary Screening examination for venereal disease Encounter for gynecological examination without abnormal finding Routine gynecological examination Cervical 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 documented in this encounter Care Teams Platinumsmith Relationship Specialty Start Date End Date Patrick Clement MD PCP - General 05/21/18 04/25/19 documented as of this encounter
--- OUTSIDE RECORDS SUMMARY | 2024-05-15 11:03 | XMS_ITS | Encounter Summary ---
Author Organization [facility] Address [address] [place] [address] Care Team Providers Care Personnel And Payroll Technician Name Role Phone Patrick Clement MD Primary Care Provider [phone] Reason for Visit * Reason Onset Date Comments Results 06/11/2018 Encounter Details Date Type Department Care Team (Late st Contact Info) Description 06/11/2018 Telephone [facility] Women's Services [facility] [address] [place] [address] Mel Babcock, RN [address] [place] [address] Results Social History Tobacco Use Types Packs/Day [...] Miscellaneous Notes * Telephone Encounter - Mel Babcock, RN - 06/11/2018 0908 EDT Martha has been contacted and has been informed that both her Pap and HPV test .were negative and that she should plan to have both repeated in 1 year. documented in this encounter Plan of Treatment Upcoming Encounters Date Type Department Care Team (Late st Contact Info) Description 05/22/2024 10:00 EDT Office Visit [facility] Foot & Ankle Program - [facility] [address] [place] [address] Edwige Keller DPM [address] [place] [address] 07/18/2024 13:00 EDT Procedure visit [facility] Women's Services - [address] [id number] Jessica Murray NP [address] [facility], [address] [place] [address] documented as of this encounter Visit Diagnoses Not on filedocumented in this encounter Care Teams Personnel And Payroll Technician Relationship Specialty Start Date End Date Patrick Clement MD PCP - General 05/21/18 04/25/19 documented as of this encounter
--- OUTSIDE RECORDS SUMMARY | 2024-05-15 11:03 | XMS_ITS | Encounter Summary ---
Author Organization [facility] Address [address] [place] [address] Care Team Providers Care Volleyball Assistant Coach Name Role Phone Nanda Read MD Primary Care Provider Unavailable Reason for Visit * Reason Comments Abnormal Pap Smear HPV pos, pap neg Encounter Details Date Type Department Care Team (Late st Contact Info) Description 05/16/2017 9:45 EDT Office Visit [facility] - [address] [phone] Taco Cornejo MD [address] [facility], Level 4 [place] [address] Cervical high risk human papillomavirus [...] Sign Reading Time Taken Comments Blood Pressure 128/72 05/16/2017 0934 EDT Pulse - - Temperature - - Respiratory Rate - - Oxygen Saturation - - Inhaled Oxygen Concentration - - Weight 76.7 kg (169 lb) 05/16/2017 0934 EDT per pt Height 160 cm (5' 2.99) 05/16/2017 0934 EDT Body Mass Index 29.94 05/16/2017 0934 EDT documented in this encounter Functional Status [...] Destination Auto Discharge documented in this encounter Procedure Notes * Taco Cornejo MD - 05/16/2017 0945 EDT Images from the original note were not included. Procedure: Procedures Sent by BERE Johnson Colposcopy Procedure Note Indications: 51 y.o. postmenopausal. Requests breast exam also today. No issues. [facility] mammography. Has primary provider and credit report checker for other care. 06/2009, LEEP - AIDEN I - neg margins, and laser of posterior wall of the vagina persistent LGSIL 12/2009 ASCUS and pos HPV 06/2010, 11/2010, 05/2011, 11/2011 and 05/2012 were negative 02/2014 Neg pap, pos HPV 02/2015 NIL neg HPV 02/2016 NIL ,pos HPV 04/26/16 neg bx, neg ECC 03/13/17 pap neg, HPV pos Procedure Details The risks and benefits of the procedure and written informed consent obtained. Vulva inspected. Speculum placed in vagina and visualization of cervix achieved. Atrophic vagina and cervix. Vagina and cervix soaked with acetic acid solution. Cervix and vagina painted with Lugol'ssolution. Exam was chaperoned by Vilma Fang Image: Cervical colposcop : 360 degrees of columnar epithelium seen:no Vaginalcolposcop : normal without visible lesions. Vulvar inspectio : No visible lesions. Clinical Impressions: Colposcopy: VAIN: possible and RACHID: no. Cervix: benign. Specimens: Biopsy cervix 9 oclock and vagina 6 oclock. Complications: None. Plan: Patient will be called with pathology results and recommendations next week. Instructions sheet given to patient. If bxs neg - plan to have pap and HPV next year with reflex subtyping of HPV for 16/18 - if neg 16/18 but still HPV pos and pap neg then can go to colpos every 2 years. Advised needs vag estrogen week prior to colpos. Taco Cornejo MD 05/19/2017 addendum Patient called with results and recommendations. plan to have pap and HPV next year with reflex subtyping of HPV for 16/18 - if neg 16/18 but HPV pos for other HPV and pap neg then can go to colpos every 2 years. If HPV 16,18 pos then needs at that time. Advised needs vag estrogen week prior to colpos Final Pathologic Diagnosis: A. ??CERVIX, 8 O'CLOCK, BIOPSY: - Squamous mucosa with reactive epithelial atypia. ?? B. ??VAGINA, 6 O'CLOCK, BIOPSY: - Squamous mucosa with reactive epithelial atypia. See comment. ENDOCERVIX, CURETTAGE: - Fragments of benign endocervical mucosa with squamous metaplasia. documented in this encounter Miscellaneous Notes * Addendum Note - Taco Cornejo MD - 05/16/2017 1446 EDTAddended by: TACO CORNEJO on: 05/16/2017 14:46 Modules accepted: Orders documented in this encounter Plan of Treatment Upcoming Encounters Date Type Department Care Team (Late st Contact Info) Description 05/22/2024 10:00 EDT Office Visit [facility] - Melissa [facility] [place] [address] Edwige Keller DPM [address] [place] [phone] 07/18/2024 13:00 EDT Procedure visit [facility] - [address] [id number] Jessica Murray, POLO [address] [facility] 4 [place] [address] Scheduled Orders Name Type Priority Associated Diagnoses Orde r Schedule SURGICAL PATHOLOGY- ORDER ONLY Pathology Routine Cervical 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 Ordered: 05/16/2017 SURGICAL PATHOLOGY- ORDER ONLY Pathology Routine Cervical 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 Ordered: 05/16/2017 documented as of this encounter Procedures Procedure Name Priority Date/Time Associated Diagnosis Comments SURGICAL PATHOLOGY Routine 05/16/2017 18 :12 EDT documented in this encounter Results * SURGICAL PATHOLOGY (05/16/2017 18:12 EDT) Pathology Report: SURGICAL PATHOLOGY REPORT Reports generated via electronic interface contain original data; however they are lacking the format of the original report. Caution should be taken when reading/interpretin g unformatted reports. Name: ? JO JONES ? Accession #: ? [id number] ? : ? 1965 (Age: 51) ??F ? Collect Date: ? 05/16/2017 ? Location: ? OBGYN ? Receive Date: ? 05/16/2017 ? Provider: TACO CORNEJO MD Copy to: ? Final Pathologic Diagnosis: A. ??CERVIX, 8 O'CLOCK, BIOPSY: - Squamous mucosa with reactive epithelial atypia. ?? B. ??VAGINA, 6 O'CLOCK, BIOPSY: - Squamous mucosa with reactive epithelial atypia. See comment. Comment: Immunoperoxidase staining was performed on this case to further characterize the lesion. ??(Dr. Weiss)/natalya ?? ANTIBODY(CLONE)(BLO CK):RESULT P16 (E6H4TM, Cunningham)(B1): Negative MIB-1 (Ki67) (K2, Leica)(B1): Reactive pattern NOTE: ??One or more of the reagents used in immunoperoxidase testing in this case may not have been cleared or approved by the U.S. Food and Drug Administration (FDA). ??The FDA has determined that such clearance or approval is not necessary. ??These tests are used for clinical purposes. ??They should not be regarded as investigational or for research. ??These reagents' performance characteristics have been determined by the [facility]. ??The positive and negative controls worked appropriately. ??If immunoperoxidase staining has been performed on alcohol fixed cytology specimens, which has not been fully validated, the assays should be interpreted with caution and correlated with clinical data. ??This laboratory is certified under the Clinical Laboratory Improvement Amendments of 1988 (CLIA-88) as qualified to perform high complexity clinical laboratory testing. ?? Document reviewed and electronically signed by: RJ PACHECO MD Report ??Date: 05/19/2017 13:36 By the signature above, the attending physician certifies that he/she has personally conducted a gross and/or microscopic examination of the described specimens and rendered or confirmed the above diagnosis. Specimen(s) Received: A. ??Cx bx at 8 o'clock B. ??Vag bx at 6 o'clock Clinical History: HPV pos; hx AIDEN I; clinical diagnosis code: R87.810 Gross Description: A. ?Received in formalin labelled with proper patient identification (initials P, J) and cervix is a single red-brown tissue fragment with attached white mucus (0.5 x 0.3 x 0.2 cm). Submitted intact in block A1. B. ?Received in formalin labelled with proper patient identification (initials P, J) and vaginal is a single pink-russell tissue fragment (0.5 x 0.3 x 0.2 cm). Submitted intact in block B1. BERE Fleming (ASCP) 05/17/2017 8:30 AM End of Report [facility] 05/16/2017 18:1 2 EDT 05/16/2017 18:12 EDT Taco Cornejo MD PATHOLOGY ORDERABL ES [facility] [address] [place] [address] documented in this encounter Visit Diagnoses Diagnosis Cervical 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- Primary documented in this encounter Care Teams Volleyball Assistant Coach Relationship Specialty Start Date End Date Nanda Read MD PCP - General 05/08/09 05/20/18 documented as of this encounter
--- OUTSIDE RECORDS SUMMARY | 2024-05-15 11:03 | XMS_ITS | Encounter Summary ---
Author Organization [facility] Address [address] [place] [address] Care Team Providers Care Unit Assembler Name Role Phone Nanda Read MD Primary Care Provider Unavailable Reason for Visit * Reason Onset Date Comments Results 05/19/2017 Encounter Details Date Type Department Care Team (Late st Contact Info) Description 05/19/2017 Telephone [facility] Services [address] [phone] Katy Lubin MD 111 [facility], Level [address] [place] [address] Results Social History Tobacco Use [...] Telephone Encounter - Katy Lubin MD - 05/19/2017 1437 EDT Patient called with results and recommendations. plan [...] of benign endocervical mucosa with squamous metaplasia. plan to have pap and HPV next year with reflex subtyping of HPV for 16/18 - if neg 16/18 but still HPV pos and pap neg then can go to colpos every 2 years. Advised needs vag estrogen week prior to colpos documented in this encounter Plan of Treatment Upcoming Encounters Date Type Department Care Team (Late st Contact Info) Description 05/22/2024 10:00 EDT Office Visit [facility] - [address] [address] Edwige Keller [address] [phone] 07/18/2024 13:00 EDT Procedure visit [facility] Women[facility] Services - [facility] [address] [place], [place] [phone] Jessica Murray NP 111 [facility], [facility], Level [address] [place] [address] documented as of this encounter Visit Diagnoses Not on filedocumented in this encounter Care Teams Unit Assembler Relationship Specialty Start Date End Date Nanda Read MD PCP - General 05/08/09 05/20/18 documented as of this encounter
--- OUTSIDE RECORDS SUMMARY | 2024-05-15 11:03 | XMS_ITS | Encounter Summary ---
Author Organization [facility] Address [address] [place] [address] Care Team Providers Care Delivery Representative Name Role Phone MunozRuth Lilibeth JUAREZ Primary Care Provider + Reason for Visit * Reason Comments Well Woman Exam Encounter Details Date Type Department Care Team (Late st Contact Info) Description 05/23/2019 13:00 EDT Office Visit [facility] Services - [address] [address] Kassie Carreon PA-C [address] [place] [address] [address] [place] [address] Encounter for gynecological examination without abnormal finding (Primary Dx) Discharge Disposition: Auto Discharge Social [...] Sign Reading Time Taken Comments Blood Pressure 100/62 05/23/2019 1257 EDT Pulse - - Temperature - - Respiratory Rate - - Oxygen Saturation - - Inhaled Oxygen Concentration - - Weight 83.6 kg (184 lb 6.4 oz) 05/23/2019 1257 E DT Height 160 cm (5' 2.99) 05/23/2019 1257 EDT Body Mass Index 32.67 05/23/2019 1257 EDT documented in this encounter Functional Status [...] 03/11/2016 documented as of this encounter Discharge Disposition Disposition Code Departure Means Destination Auto Discharge documented in this encounter Progress Notes * Kassie Ham PA - 05/23/2019 1300 EDT Subjective: Patient ID: Martha Benoit is an 53 y.o. female. Chief Complaint Patient presents with ??? Well Woman Exam HPI Chief complaint: HPI: Martha Benoit is a 53 y.o. 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 She is post menopausal, and denies any vaginal bleeding. Using NA for contraception. Last pap smear: April,. NIL and neg HR HPV In February 2017, pap was NIL, positive HR HPV. Martha has a hIstory of recurrent cervical [...] NIL, positive HPV, colposcopy with benign biopsy History of STDs: HPV only.Full STI screening done last year, negative. Vaginal complaints: none. Notes that just in the past few days has some irritation near her urethra/external dysuria, but no urgency/frequency. Other complaints: none Other concerns: has been dealing with a heel ulcer, so limited mobility. Health Maintenance Pap/HPV: as aboveDexa: n/a Mammo: has had them done at [facility] in the past, but has not had [...] Has lost about 80 pounds following bariatric surgery, but states that she doesn't feel healthier, and is frustrated that her glycemic control is notbetter. Calcium:good diet Vitamin D: good diet Folic Acid: diet Bicycle helmet use:NA Wears seatbelts: yes Patient Active Problem List Diagnosis ??? Mild dysplasia of cervix (AIDEN I) ??? Morbid obesity ([facility]) ??? Vitamin D deficiency ??? Diabetes mellitus ([facility]) Past Medical History: Diagnosis Date ??? Unspecified cerebral artery occlusion with cerebral infarction Past Surgical History: Procedure Laterality Date ??? CERVIX LESION DESTRUCTION 07/15/2009 ??? GASTRIC BYPASS SURGERY 01/04/16 ??? LEEP 07/15/2009 ??? TUBAL LIGATION Family History Problem Relation Age of Onset ??? Colon Cancer Father ??? Diabetes Father ??? Stroke Father ??? Cervical Cancer Sister ??? Diabetes Sister ??? Heart Disease Sister [place] at age 42 = ??? Diabetes Mother [...] 5 tabs daily No current facility-administered medications on file prior to visit. No Active Allergies Review of Systems Constitutional: Negative. HENT: Negative. Eyes: Negative. Respiratory: Negative. Cardiovascular: Negative. Gastrointestinal: Negative. Endocrine: Negative. Genitourinary: Negative. Musculoskeletal: Negative. Skin: Negative. Allergic/Immunologic: Negative. Neurological: Negative. Hematological: Negative. Psychiatric/Behavioral: Negative. - See HPI Objective: BP 100/62 Ht 160 cm (62.99) Wt 83.6 kg (184 lb 6.4 oz) BMI 32.67 kg/m?? Physical Exam Constitutional: She is oriented [...] normal. Judgment and thought contentnormal. Assessment: Yearly interactive project manager exam History of persistent HPV. Plan: 1. Pap with HPV regardless, if NIL/negative, can discuss reducing frequency of pap smears. Dr. Lubin's plan as outlined following her last colposcopy in 2017: plan to have pap and HPV next year with reflex subtyping of HPV for 16/18 - if neg 16/18 but still HPV pos and pap neg ??then can go to colpos every 2 years. Advised needs vag estrogen week prior to colpos 2. Breast exam done in clinic today, patient declines having a mammogram 3. Colonoscopy utd 4. Calcium, vitamin D, exercise for bone density protection. 5. Advised follow symptom of suburethral discomfort, no abnormal findings today,she thinks that it may have been due to a new soap. Return to office in 1 year, sooner PRN. BERE Johnson documented in this encounter Plan of Treatment Upcoming Encounters Date Type Department Care Team (Late st Contact Info) Description 05/22/2024 10:00 EDT Office Visit [facility] - [address] [place] [address] Edwige Keller DPM [address] [place] [phone] 07/18/2024 13:00 EDT Procedure visit [facility] Services - [address] [phone] Jessica Murray NP 111 [facility], [facility], Level [address] [place] [phone] Scheduled Orders Name Type Priority Associated Diagnoses Orde r Schedule PAP TEST- ORDER ONLY Pathology Routine Encounter for gynecological examination without abnormal finding Ordered: 05/23/2019 SCREENING PAP SMEAR;OBTAIN,PREP,CON VEY TO LAB Procedures Routine Encounter for gynecological examination without abnormal finding Ordered: 05/23/2019 documented as of this encounter Visit Diagnoses Diagnosis Encounter for gynecological examination without abnormal finding- Primary Routine gynecological examination documented in this encounter Discontinued Medications Medication Sig Discontinue Reason Start Date End Da te Miscellaneous Medication - See Admin Instructions Boric Acid, 600 mg one supp. nightly x 14 nights. Patient Stopped Taking 08/24/2015 05/23/2019 Miscellaneous Medication - See Admin Instructions Boric Acid, 600 mg one suppository vaginally at bedtime once weekly. Patient Stopped Taking 08/24/2015 05/23/2019 POTASSIUM CHLORIDE ORAL Take 10 mEq by mouth 2 times daily. Reported on 03/13/2017 Patient Stopped Taking 05/23/2019 Sodium Hypochlorite (DAKIN'S SOLUTION) 0.125 % solution 1 application by misc (non-drug; combo route) route daily. Cleanse left foot ulcer with dakins with dressing changes as instructed Patient Stopped Taking 04/26/2019 05/23/2019 documented as of this encounter Care Teams Delivery Representative Relationship Specialty Start Date End Date Ruth Munoz, LARRY [address] [place] [phone] PCP - General 04/26/19 06/19/23 documented as of this encounter
--- OUTSIDE RECORDS SUMMARY | 2024-05-15 11:03 | XMS_ITS | Encounter Summary ---
Author Organization [facility] Address [address] [place] [address] Care Team Providers Care Mash Processing Operator Name Role Phone Nanda Read MD Primary Care Provider Unavailable Reason for Visit * Reason Comments Abnormal Pap Smear hr hpv Encounter Details Date Type Department Care Team (Late st Contact Info) Description 04/26/2016 15:00 EDT Office Visit [facility] Women's Services - [address] [phone] Jessica Nixon, POLO [address] [facility], Level [address] [place] [address] AIDEN I (cervical intraepithelial neoplasia I) (Primary Dx) Social History Tobacco Use Types [...] Sign Reading Time Taken Comments Blood Pressure 120/68 04/26/2016 1517 EDT Pulse - - Temperature - - Respiratory Rate - - Oxygen Saturation - - Inhaled Oxygen Concentration - - Weight 97.5 kg (215 lb) 04/26/2016 1517 EDT Height 160 cm (5' 2.99) 04/26/2016 1517 EDT Body Mass Index 38.1 04/26/2016 1517 EDT documented in this encounter Functional Status [...] as of this encounter Progress Notes * Cele Lopes - 05/04/2016 1335 EDT Patient added to tickler for pap and HR HPV due 04/2017 * Jessica Nixon, [facility] - 04/26/2016 1603 EDT Images from the original note were not included. Sent by BERE Slater Colposcopy Procedure Note Indications: Pt with DM and leg pain, walks with rolling walker. H/o LEEP for high grade dysplasia and laser of posterior vaginal wall for persistent LSIL in . LEEP showed AIDEN 1. Nonsmoker. Not sexually active. P4. Has 13 kids altogether from adopting relatives kids. S/p gastric bypass in 01/2016. Lost 50lbs. Periods stopped for almost a year before the gastric bypass, but then resumed regularly after the surgery. 03/07 NIL + 03/06 NIL neg 04/05 AIDEN 1 03/05 NIL + 04/04 NIL neg 06/03 NIL + Procedure Details The risks and benefits of the procedure and written informed consent obtained. Speculum placed in vagina and excellent visualization of cervix achieved. Vagina and cervix soaked with acetic acid solution. Cervix and vagina painted with Lugol's solution. Exam was chaperoned by Latosha Arriaga MA. Image: Cervix: 360 degrees of columnar epithelium seen:no Vaginal inspection: normal without visible lesions. Vulvar colposcopy: No visible lesions. Clinical Impressions: Colposcopy: stenotic os, s/p LEEP presentation. Difficult colpo with vaginal wall relaxation. Scattered, spotty, Lugols negative areas on cervix and extending onto vaginal mccoy. Had same spottiness on prior colpo in 2013. Negative trich antigen. Cervix: atrophy and likely benign. Specimens: Biopsy Cervix and Dr. Lubin came in to assist with ECC since patient's os was stenotic.Dr. Lubin used spinal needle to find canal and obtain sample. Final Pathologic Diagnosis: A. ENDOCERVIX, CURETTAGE: - ??Scant squamous mucosa with acute and chronic cervicitis. B. CERVIX, 6 O'CLOCK NEAR OS AND GROSSLY ABNORMAL AREA, BIOPSY: - ??Squamous mucosa with acute and chronic cervicitis. Document reviewed and electronically signed by: CALI HENLEY MD Complications: None. Plan: Specimens labelled and sent to Pathology. Will base further treatment on Pathology findings. Treatment options discussed with patient. Post biopsy instructions given to patient. Will call pt next week with results and plan. Discussed use of topical vaginal estrogen, she will consider. SHIRA Sadler 05/03/16 Pt notified of above surg path results of acute/chronic cervicitis. Patient will need a papand HR HPV test in 1 year. If both those normal, then repeat cotesting 3 years later, and if normal, routine testing. If any test abnormal, repeat colpo. She has been added to the [employer] reminder system for cotesting due 04/2017. SHIRA Sadler CC: BERE Johnson documented in this encounter Miscellaneous Notes * Addendum Note - Jessica Nixon FNP - 05/07/2016 1033 EDTAddended by: JESSICA NIXON on: 05/07/2016 10:33 Modules accepted: Level of Service documented in this encounter Plan of Treatment Upcoming Encounters Date Type Department Care Team (Late st Contact Info) Description 05/22/2024 10:00 EDT Office Visit [facility] Program - [address] [place] [address] Edwige Keller DPM [address] [place] [phone] 07/18/2024 13:00 EDT Procedure visit [facility] Women[facility] Services - [facility] [address] [place] [address] Jessica Nixon NP [address] [facility], Level [address] [place] [address] Scheduled Orders Name Type Priority Associated Diagnoses Orde r Schedule SURGICAL PATHOLOGY- ORDER ONLY Pathology Routine AIDEN I (cervical intraepithelial neoplasia I) Ordered: 04/26/2016 documented as of this encounter Procedures Procedure Name Priority Date/Time Associated Diagnosis Comments SURGICAL PATHOLOGY Routine 04/26/2016 12 :37 EDT documented in this encounter Results * SURGICAL PATHOLOGY (04/26/2016 12:37 EDT) Pathology Report: SURGICAL PATHOLOGY REPORT Reports generated via electronic interface contain original data; however they are lacking the format of the original report. Caution should be taken when reading/interpret ing unformatted reports. Name: ? JO JONES ? Accession #: ? [id number] ? : ? 1965 (Age: 50) ??F ? Collect Date: ? 04/26/2016 ? Location: ? OBGYN ? Receive Date: ? 04/27/2016 ? Provider: JESSICA NIXON COMMUNITY RELATIONS DIRECTOR Copy to: ? Final Pathologic Diagnosis: A. ENDOCERVIX, CURETTAGE: - ??Scant squamous mucosa with acute and chronic cervicitis. B. CERVIX, 6 O'CLOCK NEAR OS AND GROSSLY ABNORMAL AREA, BIOPSY: - ??Squamous mucosa with acute and chronic cervicitis. Document reviewed and electronically signed by: CALI HENLEY MD Report ??Date: 04/28/2016 16:58 By the signature above, the attending physician certifies that he/she has personally conducted a gross and/or microscopic examination of the described specimens and rendered or confirmed the above diagnosis. Specimen(s) Received: A. ??ECC B. ??Cervical biopsy 6 near os and distal cervix on spotty area Clinical History: AIDEN I in 2013 and NIL, (+) HR HPV in 02/2016; (+) HR HPV since 2011 with NIL Paps; h/o LEEP and laser of vaginal wall in 2008; clinical diagnosis code: N87.0 Gross Description: A. ?Received in formalin labelled with proper patient identification (initials P, J) and ECC is a 0.1 x 0.1 x 0.1 cm gordon to red-brown tissue. Entirely submitted in A1. B. ?Received in formalin labelled with proper patient identification (initials T, J) and B are two jones-white tissue fragments averaging 0.1 x 0.1 x 0.1 cm. Entirely submitted in B1. Destiny Jackman 04/27/2016 4:44 PM End of Report [facility] 04/26/2016 12:3 7 EDT 04/27/2016 12:37 EDT Jessica Nixon NP PATHOLOGY ORDERABLES [facility] [address] [place] [address] documented in this encounter Visit Diagnoses Diagnosis AIDEN I (cervical intraepithelial neoplasia I)- Primary Mild dysplasia of cervix documented in this encounter Care Teams Mash Processing Operator Relationship Specialty Start Date End Date Nanda Read MD PCP - General 05/08/09 05/20/18 documented as of this encounter
--- OUTSIDE RECORDS SUMMARY | 2024-05-15 11:03 | XMS_ITS | Encounter Summary ---
Author Organization [facility] Address [address] [place] [address] Care Team Providers Care Associate Professor Of Church Music Name Role Phone Ruth Munoz Lilibeth JUAREZ Primary Care Provider + Reason for Visit * Reason Onset Date Comments Medication Management 07/11/2019 Encounter Details Date Type Department Care Team (Late st Contact Info) Description 07/11/2019 Telephone [facility] Women's Services - [facility] [address] [place] [address] Angelica Butts RN Medication Management Social History [...] encounter Miscellaneous Notes * Telephone Encounter - Kassie Carreon PA - 07/11/2019 2186 EDT Note reviewed. I called Martha, discussed that she had been taking more vaginal estrogen cream than direceted, confirmed that my electronic order gave the correct instructions (1 gram PV 3 times WEEKLY (not daily). Reviewed with Jessica Murray, who will be performing her colposcopy, as well as Dr. Valdez. Pt does not need any more vaginal estrogen cream. Agree with safe report, and follow up with pharmacy in terms of measures to avoid any such errors in the future. Consideration given as to obtaining ultrasound or offering provera, reviewed with Dr. Valdez, feeling that we do not know how much is systemically absorbed, and with this, advised pt to monitor forany vaginal bleeding. If any vaginal bleeding, then of course would perform work up for this. * Telephone Encounter - Angelica Butts RN - 07/11/2019 1215 EDT Call to [facility]. I spoke to pharmacist Purvi. Purvi did confirm that theinstructions on vaginal estrogen was written as 1 g 3 times a day.Confirmed pharmacy error.Pharmacist states will follow up with error. I will forward to provider for follow-up. * Telephone Encounter - Angelica Butts RN - 07/11/2019 1200 EDT Call to patient. I spoke to patient. Patient states that she has been using the vaginal cream the wrong way and now is out. Patient states that she picked up the estrogen vaginal cream a couple days after it was ordered. Prescription was placed on June 21, 2019. Patient states that she has been feeling the plunger all the way and has been using this 3 times a day. Patient reports that this was on the print out instructions from pharmacy. Patient states that she has been using it like this from the first time she star leobardo it up until couple days ago. Patient states that she then noticed that she should be using 1 g and decreased it to 1 g 3 times a day. Reviewed with patient that the prescription was for 1 g 3 times a week. Patient states that she is out of the medication. I will call the pharmacy to follow-up on the instructions that was printed for patient. [facility] in [place] for about. Will forward to provider for next step. Patient has upcoming colposcopy scheduled for July 23, 2019. * Telephone Encounter - Angelica Butts RN - 07/11/2019 1149 EDT Call from patient. Patient left message that she ran out of medication was using the wrong amount.Patient states that she needs a refill of the estradiol. documented in this encounter Plan of Treatment Upcoming Encounters Date Type Department Care Team (Late st Contact Info) Description 05/22/2024 10:00 EDT Office Visit [facility] Foot & Ankle Program - [address] [place] [address] Edwige Keller DPM [address] [place] [phone] 07/18/2024 13:00 EDT Procedure visit [facility] Women's Services - [facility] [address], [place] [phone] Jessica Murray NP [address] [facility], [facility], [address] [place] [address] documented as of this encounter Visit Diagnoses Not on filedocumented in this encounter Care Teams Associate Professor Of Church Music Relationship Specialty Start Date End Date Ruth Mnuoz APRN [address] [place] [phone] PCP - General 04/26/19 06/19/23 documented as of this encounter
--- OUTSIDE RECORDS SUMMARY | 2024-05-15 11:03 | XMS_ITS | Encounter Summary ---
Author Organization [facility] Address [address] [place] [address] Care Team Providers Care Booking Manager Name Role Phone Ruth Munoz APRN Primary Care Provider + Reason for Visit * Reason Comments Foot Problem Encounter Details Date Type Department Care Team (Late st Contact Info) Description 06/06/2019 9:30 EDT Office Visit [facility] Foot & Ankle Program - [address] [address] Edwige Keller, DP [address] [place] [address] Ulcer of foot, left, with fat layer exposed ([facility]) (Primary Dx); Type 2 diabetes mellitus with diabetic polyneuropathy, with long-term current use of insulin ([facility]) Social History Tobacco Use Types Packs/Day [...] encounter Progress Notes * Edwige Keller - 06/06/2019 09 EDT Martha Benoit is a very pleasant 53 y.o. female patient who presents for follow up chronic left plantar heel ulcer. She reports that she believes this has been doing well. She believes it has gotten slightly smaller. She has not had any real pain in it. She has been staying mostly nonweightbearing.She did do some walking yesterday. She has been having VNA for dressing changes. She denies any nausea, vomiting, fever, chills. She presents today with her son. Patient Active Problem List Diagnosis Date Noted ??? Diabetes mellitus ([facility]) 08/11/2014 Priority: Medium ??? Vitamin D deficiency 01/28/2010 ??? Morbid obesity ([facility]) 01/22/2010 ??? Mild dysplasia of cervix [...] ??? Diabetes Sister ??? Heart Disease Sister [place] at age 42 = ??? Diabetes Mother [...] less than 3 seconds to all toes. ??Ulcer plantar central left heel. Fibro-granular wound base. ??Does not undermine.?Does not tunnel.??No??fluid??expressed. ??No pain on probing. ??No malodor. ??No necrosis. ??Fibro-granular wound base. ??Wound measures 4 x 2 x 2 mm deep. ??No other open lesions. ??Protective sensation absent. ??Unable to assess manual muscle testing on theleft. ??Psoriatic plaques to both lower legs. ASSESSMENT: 1. Ulcer of foot, left, with fat layer exposed ([facility]) 2. Type 2 diabetes mellitus with diabetic polyneuropathy, with long-term current use of insulin ([facility]) No orders of the defined types were placed in this encounter. PLAN: Ms. Benoit presents today for follow-up chronic left plantar heel ulcer. This remains the same in terms of size since last visit. No worsening. No signs of infection. I did debride the wound today, skin and subcutaneous tissue, with a 15 blade, less than 20 cm??. We will continue with VNA for dressing changes. She would like to cut down to 2 times a week, and feels comfortable doing at the other days. She is going to change the dressing daily to allow it to air out at night, as it is getting a little macerated. We discussed other treatment options to get this to heal. I do think she would benefit from a total contact cast, which she can walk and. She is not interested in this at this time, however. We will rediscuss at follow-up appointments. I am going to see her back in 2 to 3 weeks. Sheknows to call before then if any problems arise and is happy with this plan. Instructions for VNA: Change dressing to left central heel ulcer 2 times per week. ??Ms. Benoit willchange the other days of the week. Should be changed daily. Cleanse wound with Dakin's solution. Pack with promogran jamie dressing, cut to size of wound. Apply well padded gauze dressing.??If she cannot tolerate guaze wrap, ok to use mepilex border dressing over the packing. ??She is nonweightbearing on this??side. She has follow up with me in 3 weeks. Portions of this document have been prepared with speech recognition software or keyboard data warehouse specialist techniques. Minor irregularities or keyboarding misprints may be present documented in this encounter Plan of Treatment Upcoming Encounters Date Type Department Care Team (Late st Contact Info) Description 05/22/2024 10:00 EDT Office Visit [facility] Foot & Ankle Program - [address] [place] [address] Edwige Keller, DPLilibeth [address] [place] [phone] 07/18/2024 13:00 EDT Procedure visit [facility] Women's Services - [facility] [address] [place], [place] [phone] Jessica Murray, POLO [address] [facility], [facility], [address] [place] [address] documented as of this encounter Visit Diagnoses Diagnosis Ulcer of foot, left, with fat layer exposed ([facility])- Primary Type 2 diabetes mellitus with diabetic polyneuropathy, with long-term current use of insulin ([facility]) documented in this encounter Care Teams Booking Manager Relationship Specialty Start Date End Date Ruth Munoz APRN [address] [place] [phone] PCP - General 04/26/19 06/19/23 documented as of this encounter
--- OUTSIDE RECORDS SUMMARY | 2024-05-15 11:03 | XMS_ITS | Encounter Summary ---
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 VA fl uctuate per pt. For months. Noticed floaters yesterday in right eye,but have old floaters also. No flashes.No veil or shade over VA. No pain. [id number]. Encounter Details Date Type Department Care Team (Late st Contact Info) Description 09/17/2018 13:30 EST Office Visit [facility] Ophthalmology - [facility] [address] [place], [place] [address] Jace Wagner MD [address] [place] [phone] Social History Tobacco Use Types Packs/Day [...] as of this encounter Progress Notes * Jace Wagner MD - 09/17/2018 1330 EST Chief Complaint Patient presents with ??? Eye Problem NPV: DME eval. VA fluctuate per pt. For months. Noticed floaters yesterday in right eye,but have old floaters also. No flashes.No veil or shade over VA. No pain. OY=111. HPI Location: Right eye Pain: 0 - No pain Quality: Blurry Severity: Mild Duration: Months Timing: Lasts: Continuous Context: NPV: DME Modifying factors: DM. Last A1C=7. 0 per pt. Blurry VA both. Associated Signs & Symptoms: NPV: DME eval. VA fluctuate per pt. For months. Noticed floaters yesterday in right eye,but have old floaters also. No flashes.No veil or shade over VA. No pain. [id number] Visual Fluctuations: Floaters Attestation: Vision blur both eyes, mild improved with glasses months constant . No pain no new F./F Her sugars are really only bad at this point when she is under stress Her vision does fluctuate with BG but again this is usually related to stress Has also been better since gastric bypass a few years ago BG ranges 140-170 No super high BG that she can recall Base Eye Exam Visual Acuity (Snellen - Linear) Right Left Dist cc 20/30 +2 20/20 -1 Dist ph cc 20/20 -2 Correction: Glasses Tonometry (Applanation, 13:50) Right Left Pressure 12 14 Pupils Pupils Dark Shape React APD Right PERRL 4.5 Round Brisk - Left PERRL 4.5 Round Brisk - Visual Trevizo Right Left Full Full Extraocular Movement Right Left Full, Ortho Full, Ortho Neuro/Psych Oriented x3: Yes Mood/Affect: Normal Dilation Both eyes: 1.0% Mydriacyl, 2.5% Phenylephrine @ 13:50 Additional Tests Color Right Left Ishihara 08/06 10/06 Slit Lamp and Fundus Exam Slit Lamp Exam Right Left Lids/Lashes Normal Normal Conjunctiva/Sclera White and quiet White and quiet Cornea Clear Clear Anterior Chamber Deep and quiet Deep and quiet Iris Round and reactive Round and reactive Lens 1+ Nuclear sclerosis, 1+ Cortical cataract 1+ Nuclear sclerosis, Trace Cortical cataract Vitreous Vitreous syneresis Vitreous syneresis Fundus Exam Right Left Disc Normal Normal C/D Ratio 0.3 0.3 Macula temp hemes, lipid nasal no edema lipid temp macula, no edema Vessels Tortuous- mild Tortuous- mild Periphery d/b hemes 4 quads d/b hemes 4 quads All five layers of the cornea are normal unless otherwise specified. Please refer to large retinal drawing. IMAGING: Photos done today for Mod NPDR both eyes- see chart IMPRESSION: 1. 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 Vitreous syneresis of both eyes 3. Nuclear senile cataract of both eyes PLAN: Mod NPDR without DME both eyes Stressed good BS and BP control No need for tx Discussed returning to for 6 month follow up. Pt prefers to have a few more visits here and thenreturn to Dr Cancino's care. Observe VS both eyes No PVD Observe NSC both eyes NVS Observe Return in about 6 months (around 03/17/2019), or if symptoms worsen or fail to improve, for OCT. I, Dr. Jace Wagner, have performed my own HPI and reviewed the tech's ROS. I have also reviewed thepatient's past medical, family, social and surgical history, as well as the patient's medications, allergies, and problem list. I am scribing for Dr. Jace Wagner MD while he is personally performing the service. Crystal Wren, MAGUI (Scribe) documented in this encounter Plan of Treatment Upcoming Encounters Date Type Department Care Team (Late st Contact Info) Description 05/22/2024 10:00 EDT Office Visit [facility] Foot & Ankle Program - [facility] [address] [place] [address] Edwige Keller DPM [address] [place] [phone] 07/18/2024 13:00 EDT Procedure visit [facility] Women's Services - [facility] [address] [place], [place] [phone] Jessica Murray NP 111 [facility], [address] [place] [phone] Scheduled Orders Name Type Priority Associated Diagnoses Orde r Schedule EYE PHOTOGRAPHY (FUNDUS) Ophthalmology Routine 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 associated with type 2 diabetes mellitus ([facility]) Ordered: 09/17/2018 documented as of this encounter Visit Diagnoses Diagnosis 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 associated with type 2 diabetes mellitus ([facility])- Primary Vitreous syneresis of both eyes Nuclear senile cataract of both eyes documented in this encounter Eye Exam Visual Acuity (Snellen - Linear) Right eye Left eye Dist cc 20/30 +2 20/20 -1 Dist ph cc 20/20 -2 Correction: Glasses Tonometry (Applanation, 13:50) Right eye Left eye Pressure 12 14 Pupils Pupils Dark Shape React APD Right eye PERRL 4.5 Round Brisk - Left eye PERRL 4.5 Round Brisk - Visual Trevizo Right eye Left eye Full Full Extraocular Movement Right eye Left eye Full, Ortho Full, Ortho Neuro/Psych Oriented x3: Yes Mood/Affect: Normal Dilation Both eyes: 1.0% Mydriacyl, 2 .5% Phenylephrine @ 13:50 Color Right eye Left eye Ishihara 10/15 12/15 Slit Lamp Exam Right eye Left eye Lids/Lashes Normal Normal Conjunctiva/Sclera White and quiet White and sherwin et Cornea Clear Clear Anterior Chamber Deep and quiet Deep and quiet Iris Round and reactive Round and julian ctive Lens 1+ Nuclear sclerosis , 1+ Cortical cataract 1+ Nuclear sclerosis, Trace Cortical cataract Vitreous Vitreous syneresis Vitreous syne resis Fundus Exam Right eye Left eye Disc Normal Normal C/D Ratio 0.3 0.3 Macula temp hemes, lipid nasal no edema lipid temp macula, no edema Vessels Tortuous- mild Tortuous- mild Periphery d/b hemes 4 quads d/b hemes 4 qu ads Care Teams Candle Extrusion Machine Operator Relationship Specialty Start Date End Date Patrick Clement MD PCP - General 05/21/18 04/25/19 documented as of this encounter
--- OUTSIDE RECORDS SUMMARY | 2024-05-15 11:03 | XMS_ITS | Encounter Summary ---
Author Organization [facility] Address [address] [place] [address] Care Team Providers Care Monitoring Analyst Name Role Phone Nanda Read MD Primary Care Provider Unavailable Encounter Details Date Type Department Care Team (Late st Contact Info) Description 03/14/2017 Orders Only [facility] Gynecologic Oncology - [address] [address] Kassie Carreon PA-C [address] [facility], [address] [place] [phone] Social History Tobacco Use Types [...] Date End Da te terconazole (TERAZOL 3) 0.8 % vaginal cream Place 1 Applicator vaginally at bedtime for 6 days. For 6 nights 2 Tube 03/14/2017 03/20/2017 documented in this encounter Plan of Treatment Upcoming Encounters Date Type Department Care Team (Late st Contact Info) Description 05/22/2024 10:00 EDT Office Visit [facility] Foot & Ankle Program - [address] [place] [address] Edwige Keller DPM [address] [place] [phone] 07/18/2024 13:00 EDT Procedure visit [facility] Women's Services - [address] [phone] Jessica Murray NP 111 [facility], [facility], [address] [place] [phone] documented as of this encounter Visit Diagnoses Not on filedocumented in this encounter Care Teams Monitoring Analyst Relationship Specialty Start Date End Date Nanda Read MD PCP - General 05/08/09 05/20/18 documented as of this encounter
--- OUTSIDE RECORDS SUMMARY | 2024-05-15 11:03 | XMS_ITS | Encounter Summary ---
Author Organization [facility] Address [address] [place] [address] Care Team Providers Care Clockmaker Apprentice Name Role Phone Ruth Munoz APRN Primary Care Provider + Reason for Visit * Reason Comments Foot Problem Encounter Details Date Type Department Care Team (Late st Contact Info) Description 07/17/2019 11:30 EDT Office Visit [facility] Foot & Ankle Program - [address] [address] Edwige Keller, DP [address] [place] [address] Ulcer of foot, left, with fat layer exposed ([facility]) (Primary Dx); Type 2 diabetes mellitus with diabetic polyneuropathy, with long-term current use of insulin ([facility]) Social History Tobacco Use Types Packs/Day Years [...] Progress Notes * Edwige Keller, DPM - 07/17/2019 1130 EDT Martha Benoit is a very pleasant 53 y.o. female patient who presents for follow up chronic left heel ulcer. She reports that she believes this is healing appropriately. VNA has been changing the dressing once a week, and she has been doing it the rest of the week. She denies any pain in the foot. She has been trying to stay off of the foot. Overall she is feeling well today. Patient Active Problem List Diagnosis Date Noted ??? Diabetes mellitus ([facility]) 08/11/2014 Priority: Medium ??? Vitamin D deficiency 01/28/2010 ??? Morbid obesity ([facility]) 01/22/2010 ??? Mild dysplasia of [...] seconds to all toes. Second toenail avulsed. Well healed. Right great toenail well adhered to the nailbed. Mild thickening and discoloration distally. No erythema or edema. Ulcer plantar central left heel- healed. Mild overlying and surrounding hyperkeratotic tissue. No probing. No pain. No erythema or edema. No fluctuace. ??No other open lesions. ??Protective sensation absent. ??Unable to assess manual muscle testing on the left. ??Psoriatic plaques to both lower legs. ASSESSMENT: 1. Ulcer of foot, left, with fat layer exposed ([facility]) 2. Type 2 diabetes mellitus with diabetic polyneuropathy, with long-term current use of insulin ([facility]) No orders of the defined types were placed in this encounter. PLAN: Ms. Benoit presents today for follow-up chronic left heel ulcer. This has healed. I lightly pared down the overlying hyperkeratotic tissue. She is going to continue with the dressing changes with a padded gauze dressing while the new skin toughens up and this continues to heal. I am going to see herback in approximately 2 weeks. If doing well then, we will stop dressing changes can slowly have her start bearing weight on the foot again. She knows to call with any questions prior to follow-up and is happy with this plan. Instructions for VNA: Change dressing to left central heel ulcer??1 time per week. ??Ms. Benoit willchange the other days of the week. ??Ulcer has healed, but should be protected still. Apply well padded gauze dressing or mepilex border dressing.?She is nonweightbearing on this??side. She has follow up with me in 2??weeks. ? Portions of this document have been prepared with speech recognition software or keyboard director oracle database techniques. Minor irregularities or keyboarding misprints may be present * Ida Carcamo LPN - 07/17/2019 1130 EDT Call to [facility] with wound care orders. Note faxed. Ida Carcamo LPN documented in this encounter Plan of Treatment Upcoming Encounters Date Type Department Care Team (Late st Contact Info) Description 05/22/2024 10:00 EDT Office Visit [facility] Foot & Ankle Program - [address] [place] [address] Edwige Keller DPM [address] [place] [phone] 07/18/2024 13:00 EDT Procedure visit [facility] Women's Services - [address] [address] Jessica uMrray, POLO 111 [facility], [facility], [address] [place] [address] documented as of this encounter Visit Diagnoses Diagnosis Ulcer of foot, left, with fat layer exposed ([facility] Primary Type 2 diabetes mellitus with diabetic polyneuropathy, with long-term current use of insulin ([facility]) documented in this encounter Care Teams Clockmaker Apprentice Relationship Specialty Start Date End Date Ruth Munoz APRN 4 [facility] [place] [phone] PCP - General 04/26/19 06/19/23 documented as of this encounter
--- OUTSIDE RECORDS SUMMARY | 2024-05-15 11:03 | XMS_ITS | Encounter Summary ---
Author Organization [facility] Address [address] [place] [address] Care Team Providers Care Host Hostess Name Role Phone Nanda Read MD Primary Care Provider Unavailable Encounter Details Date Type Department Care Team (Late st Contact Info) Description 03/13/2017 Results Only [facility] - [address] [address] Kassie Carreon PA-C [address] [facility] [place] [address] Social History Tobacco Use Types [...] Info) Description 05/22/2024 10:00 EDT Office Visit [facility] - [facility] [address] [facility] [place] [address] Edwige Keller DPM [address] [place] [address] 07/18/2024 13:00 EDT Procedure visit [facility] - [facility] [address] [place] [address] Jessica Murray, POLO [address] [facility] [place] [address] documented as of this encounter Procedures Procedure Name Priority Date/Time Associated Diagnosis Comments PAP TEST- RESULT ONLY Routine 03/13/2017 0:00 EDT documented in this encounter Results * PAP TEST- RESULT ONLY (03/13/2017 0:00 EDT) Pathology Report: CYTOPATHOLOGY REPORT Reports generated via electronic interface contain original data; however they are lacking the format of the original report. Caution should be taken when reading/interpreti ng unformatted reports. Name: ? JO JONES Moon ? Accession #: ? [id number] ? : ? 1965 (Age: 51) ??F ?Collect Date: ? 03/13/2017 ? Location: ? OBGYN ? Receive Date: ? 03/14/2017 ? Provider: KASSIE BLACKBURN Copy to: ? Final Report SPECIMEN ADEQUACY ? Satisfactory for Evaluation - transformation zone component present GENERAL CATEGORIZATION ? Negative for Intraepithelial Lesion or Malignancy INTERPRETATION ? Reactive cellular changes associated with inflammation present (includes repair). 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 HITESH GONZALEZ MD ? Report ??Date: 03/28/2017 15:29 HPV with Pap Test ? Date Ordered: ? 03/28/2017 ? Status: ?? Signed Out ?Date Complete: ? 03/29/2017 ? By: ??System Interface ? Date Reported: ? 03/29/2017 ? Interpretation RESULT: Positive for high or intermediate risk HPV. E6 OR E7 mRNA from one or more types of HPV types 16,18,31, 33,35,39,45,51,52, 56,58,59,66, and 68 is detected by bander mediated amplification. High and intermediate risk HPV types are associated with most squamous intraepithelial lesions and cervical cancers. Comments Document reviewed and electronically signed by: ? System Interface ? Report date: 03/29/2017 By the signature above, the attending physician certifies that he/she has personally conducted a gross and/or microscopic examination of the described specimens and rendered or confirmed the above diagnosis. End of Report [facility] 03/13/2017 03/14/2017 Kassie Carreon PA-C PATHOLOGY ROBINA GOLD [facility] [address] [place] [address] documented in this encounter Visit Diagnoses Not on filedocumented in this encounter Care Teams Host Hostess Relationship Specialty Start Date End Date Nanda Read MD PCP - General 05/08/09 05/20/18 documented as of this encounter
--- OUTSIDE RECORDS SUMMARY | 2024-05-15 11:03 | XMS_ITS | Encounter Summary ---
Author Organization [facility] Address [address] [place] [address] Care Team Providers Care Oil Well Logger Name Role Phone Ruth Munoz APRN Primary Care Provider + Reason for Referral * Radiology Services (Routine) - New Request Specialty Diagnoses / Procedures Referred By Patricio t Referred To Contact Diagnoses Skin ulcer of left heel with fat layer exposed (HCC-CMS) Procedures FOOT 3 OR MORE VIEWS Edwige Keller DPM [address] [place] [phone] Referral ID Status Reason Start Date Expiration Date V isits Requested Visits Authorized [id number] New Request 04/26/2019 1 1 Reason for Visit * Reason Comments Foot Problem Encounter Details Date Type Department Care Team (Late st Contact Info) Description 04/26/2019 9:00 EDT Office Visit [facility] Foot & Ankle Program - [place] [address] [place] [address] Edwige Keller DPM [address] [place] [phone] Skin ulcer of left heel with fat layer exposed (HCC-CMS) (Primary Dx); Type 2 diabetes mellitus with diabetic polyneuropathy, without long-term current use of insulin (HCC-CMS) Social History Tobacco Use Types Packs/Day Years [...] Dispensed Refills Start Date End Da te Sodium Hypochlorite (DAKIN'S SOLUTION) 0.125 % solution 1 application by misc (non-drug; combo route) route daily. Cleanse left foot ulcer with dakins with dressing changes as instructed 1 Bottle 1 04/26/2019 05/23/2019 documented in this encounter Progress Notes * Krishna Dpm, Edwige M - 04/26/2019 0900 EDT Images from the original note were not included. HPI: Martha Benoit is a very pleasant 53 y.o. female patient who presents with complaint of chronic leftheel wound. She reports that this started in August 2018. She walked without a slipper one day, and noticed the wound after that. She reports she typically does not go barefoot due to her neuropathy. She has been Seeing Dr. Frankie Regalado for this foot wound. She has been getting regular debridements. He has tried different offloading devices. She recently got a wheelchair approved, so is currently using this to get around to stay off of the foot. She got this about 2 weeks ago. She has VNA whohas been doing dressing changes. They have done a variety of dressing changes, but are currently just applying a dressing here once a week. She does get some drainage from the wound and some occasional malodor. Current dressing on the foot was applied 2 days ago. She denies any pain in the foot. She has had an infection in the foot in the past, which was treated with antibiotics-Augmentin. She has not been any antibiotics recently. She denies any pain in the foot today. She denies any nausea, vomiting, fever, chills. She does report that she had an x-ray taken of the foot not long ago, and Dr. Regalado's office. She also had a bone scan done at [facility] about 1 week ago to evaluate forany infection here due to the depth and nonhealing nature of the wound. Ms. Benoit has a history of peripheral neuropathy. She sees neurology at [facility] for this. She reports that it started as shakiness, wobbliness, weakness in both lower extremities. It has progressedto the point where she does not do much walking anymore. She is wondering if this was due to pesticide exposure when she was younger. She used to work in the [employer] with her father. She reports that [facility] attributes this to her diabetes, though she has been told that it is possible that it was due to pesticide exposure. She reports that they have diagnosed her with this, but she does not take any medications and is monitored occasionally for this. Ms. Benoit reports that this is the first time she has had an issue with a foot wound. She is diabetic. She reports that she is well controlled. Her blood sugar this morning was 112. She follows with endocrinology for the diabetes. She sees them at [facility]. She does not recall her most recent hemoglobin A1c. Ms. Benoit reports a history of prior bone spur resection in her heel in her left foot many years ago. She denies any other foot surgeries. She has a history of psoriasis and currently has psoriatic plaques in both legs. Past medical history, medications, allergies, past surgical, social and family history were reviewed and noted in [facility]. The intake form was reviewed and signed. Patient Active Problem List Diagnosis Date Noted ??? Diabetes mellitus ([facility]) 08/11/2014 Priority: Medium ??? Vitamin D deficiency 01/28/2010 ??? Morbid obesity ([facility]) 01/22/2010 ??? Mild dysplasia of cervix [...] but not to bone. Does not undermine. No purulence expressed. No pain on probing. No malodor. No necrosis. Fibro-granular wound base. Wound measures 8 x 3 x 5 mm deep. No other open lesions. Protective sensation absent. Unable to assess manual muscle testing on the left. Psoriatic plaques to both lower legs. Left heel ulcer: ASSESSMENT: 1. Skin ulcer of left heel with fat layer exposed (HCC-CMS) FOOT 3 OR MORE VIEWS COMPREHENSIVE METABOLIC PANEL (CMP) COMPLETE BLOOD COUNT AND DIFFERENTIAL C REACTIVE PROTEIN SED. RATE:WESTERGREN Other Orders Placed This Visit Procedures ??? FOOT 3 OR MORE VIEWS ??? Comprehensive Metabolic Panel (CMP) ??? Complete Blood Count and Differential ??? C Reactive Protein: use to detect acute inflammation ??? Sed. Rate: Do not order when looking for inflammation in patients with undiagnosed conditions. May be indicated when monitoring specific chronic conditions. PLAN: Ms. Benoit presents today with a chronic left heel wound plantar central left heel. This started in August 2018. She has a history of neuropathy attributed to her diabetes, though she questions whether it was due to pesticide exposure when she was younger. She has a history of foot drop in has weakness in both lower extremities. She follows with [facility] neurology for this, and she follows withendocrinology at [facility] for diabetes, which she reports is well controlled. For the foot ulcer, this has been infected wounds, and she was treated with oral antibiotics. She is not currently on any antibiotics. She does not have any pain in the foot. The wound does probe deep, but not to bone. It does not undermine. There are no clinical signs of infection today. I did review the report from the bone scan she had done at [facility] on 04/16/2019. It shows possible calcaneal osteomyelitis. We discussed that this is not specific and that other issues can cause lighting up on a bone scan.She has had a history of surgery in this area before to remove a heel spur many years ago. I did obt ain some new x-rays today, which do not show any erosive changes in the area. No soft tissue emphysema. We discussed these findings. Due to the chronic nature and the findings on the bone scan, I do think it would be burnett to further work this up including lab work and an MRI. She was in agreement. Order was placed for lab work and she is going to get this done today at the hospital. This will include labs for her kidney function, so we can order an MRI. Once I get these done, I will place the order for an MRI with/without contrast. We will call her with the date and time for this. I will see her back after the MRI is done. In the meantime, she is going to continue to offload the heel using the wheelchair. She is getting around well with this and feels comfortable with this. We will updateVNA on new dressing change instructions. I would like them to cleanse the wound with Dakin's prior to the dressing changes, so I have prescribed this to her pharmacy and she is going to pick this up today or tomorrow. She is aware of signs of infection and knows to call immediately if any concerns prior to follow-up and is happy with this plan. Instructions for VNA: Change dressing to left central heel ulcer 3 times per week. Cleanse wound with Dakin's solution, which was sent to her pharmacy today. Pack wound with a gauze dressing dipped in Dakin's solution so it is damp. Pack into wound. Wound probes centrally approximately 5 mm. Apply a gauze dressing to pad the area. Apply light Vin bandage. She is nonweightbearing on the side. She is awaiting an MRI and will have follow-up with me after the MRI. All the questions were answered and the patient was encouraged to call the clinic with any questions / concerns. Patient voices understanding and agrees with the plan. Cc: Requesting Provider - Dr. Regalado PCP - Ruth Munoz Portions of this document have been prepared with speech recognition software or keyboard director clinical data techniques. Minor irregularities or keyboarding misprints may be present * Ida Carcamo LPN - 04/26/2019 0900 EDT Call to [facility] with wound care instructions, note faxed. Spoke with intake. Ida Carcamo LPN documented in this encounter Plan of Treatment Upcoming Encounters Date Type Department Care Team (Late st Contact Info) Description 05/22/2024 10:00 EDT Office Visit [facility] Foot & Ankle Program - [address] [address] Edwige Keller DPM [address] [place] [phone] 07/18/2024 13:00 EDT Procedure visit [facility] Women's Services - [address] [id number] Jessica Murray NP [address] [facility], [address] [place] [phone] documented as of this encounter Procedures Procedure Name Priority Date/Time Associated Diagnosis Comments MR EXTREMITY FOOT W/WO CONTRAST Routine 05/01/2019 22:35 EDT FOOT 3 OR MORE VIEWS Routine 04/26/2019 9:51 EDT Skin ulcer of left heel with fat layer exposed ([facility]) documented in this encounter Results * MR EXTREMITY FOOT W/WO CONTRAST (05/01/2019 22:35 EDT) Anatomical Region Laterality Modality Other 05/01/2019 22:3 5 EDT 05/03/2019 15:29 EDT Narrative 05/03/2019 15:29 EDT MR EXTREMITY LEFT FOOT W/WO CONTRAST ??05/01/2019 10:35 PM Clinical History/Comments: L97.152-[id number] chronic ulcer of left heel and midfoot with fat layer exposed ([facility])-ICD-10 E11.42-Type 2 diabetes mellitus with diabetic polyneuropathy ([facility])-ICD-10; Chronic left heel ulcer, concern for osteomyelitis Technique: Routine multiplanar, multisequence MR images of the left ankle were performed prior to and following the uneventful intravenous administration of 7.5 mL of gadolinium contrast. Comparison: Radiographs of the left foot dated 04/26/2019 Findings: Bones/Joints: There are no bone marrow signal abnormalities in the calcaneus or elsewhere to suggest osteomyelitis. There is a small tibiotalar and subtalar joint effusion. No evidence of fracture or avascular necrosis. No osteochondral lesion of the talar dome. Enthesophyte formation is noted at the posterior aspect of the calcaneus, intimate with the insertion of the Achilles tendon and plantar fascia respectively. Ligaments/Tendons: ??There is a region of increased signal and expansion involving the peroneus longus just proximal to its entrance under the cuboid groove, consistent with tendinosis without discrete tear. There are findings of mild tenosynovitis involving the tibialis posterior, flexor digitorum longus, and flexor hallucis longus. Soft tissues: There is a superficial ulcer in the plantar soft tissues of the left heel, with some filling granulation tissue. Deep to the ulcer, there is a fluid collection measuring 18 mm in length by 15 mm transverse by 5 mm in depth (sagittal #18, coronal #13). Peripheral enhancement of the soft tissues surrounding this collection is consistent with abscess. Muscles: There is fatty atrophy involving the plantar muscles. Impression: 1. No imaging evidence of osteomyelitis. 2. Healing superficial soft tissue ulcer at the heel with a subjacent peripherally enhancing fluid collection measuring 18 x 15 x 5 mm, consistent with abscess formation. 3. Tendinosis of the peroneus longus just proximal to its entrance into the cuboid. 4. Mild tenosynovitis involving the flexor tendons, as described above. 5. 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 I have personally reviewed the images and the above interpretation and agree with the findings. Procedure Note Asher Ferguson MD, - 05/03/2019 MR EXTREMITY LEFT FOOT W/WO CONTRAST 05/01/2019 10:35 PM Clinical History/Comments: L97.375-[id number]-[id number] chronic ulcer of left heel and midfoot with fat layer exposed ([facility])-ICD-10 E11.42-Type 2 diabetes mellitus with diabetic polyneuropathy ([facility])-ICD-10; Chronic left heel ulcer, concern for osteomyelitis Technique: Routine multiplanar, multisequence MR images of the left ankle were performed prior to and following the uneventful intravenous administration of 7.5 mL of gadolinium contrast. Comparison: Radiographs of the left foot dated 04/26/2019 Findings: Bones/Joints: There are no bone marrow signal abnormalities in the calcaneus or elsewhere to suggest osteomyelitis. There is a small tibiotalar and subtalar joint effusion. No evidence of fracture or avascular necrosis. No osteochondral lesion of the talar dome. Enthesophyte formation is noted at the posterior aspect of the calcaneus, intimate with the insertion of the Achilles tendon and plantar fascia respectively. Ligaments/Tendons: There is a region of increased signal and expansion involving the peroneus longus just proximal to its entrance under the cuboid groove, consistent with tendinosis without discrete tear. There are findings of mild tenosynovitis involving the tibialis posterior, flexor digitorum longus, and flexor hallucis longus. Soft tissues: There is a superficial ulcer in the plantar soft tissues of the left heel, with some filling granulation tissue. Deep to the ulcer, there is a fluid collection measuring 18 mm in length by 15 mm transverse by 5 mm in depth (sagittal #18, coronal #13). Peripheral enhancement of the soft tissues surrounding this collection is consistent with abscess. Muscles: There is fatty atrophy involving the plantar muscles. Impression: 1. No imaging evidence of osteomyelitis. 2. Healing superficial soft tissue ulcer at the heel with a subjacent peripherally enhancing fluid collection measuring 18 x 15 x 5 mm, consistent with abscess formation. 3. Tendinosis of the peroneus longus just proximal to its entrance into the cuboid. 4. Mild tenosynovitis involving the flexor tendons, as described above. 5. 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 I have personally reviewed the images and the above interpretation and agree with the findings. Edwige Keller CLAUS IMG MRI ORDERABLES * SED. RATE:WESTERGREN (04/26/2019 12:51 EDT) Pathologist [facility] Sed. Rate Westergren 16 0 - 30 mm/hr 04/26/2019 13:24 EDT [facility] Blood specimen (specimen) BLOOD SPECIMEN / Unknown 04/26/2019 12:51 EDT 04/26/2019 13:16 EDT Edwige Mcelroy Krishna DEVLIN HEMATOLOGY & PF4 ORD ERABLES Performing Organization Address City/[facility]/ZIP Co de Phone Number [facility] [address] [place] [address] * C REACTIVE PROTEIN (04/26/2019 12:51 EDT) [facility] C Reactive Protein <7.0 <10.0 mg/L 04/26/2019 13:58 EDT [facility] Blood specimen (specimen) BLOOD SPECIMEN / Unknown 04/26/2019 12:51 EDT 04/26/2019 13:16 EDT Edwige M Krishna DEVLIN CHEMISTRY & BLOOD GA S ORDERABLES [facility] [address] [place] [address] * (ABNORMAL) COMPLETE BLOOD COUNT AND DIFFERENTIAL (04/26/2019 12:51 EDT) Pathologist [facility] WBC 11.90 4.0 - 12.4 K/cmm 04/26/2019 13:25 EDT [facility] RBC 5.38(H) 3.86 - 5.04 M/cmm 04/26/2019 13:25 EDT [facility] Hemoglobin 14.7 11.6 - 15.2 gm/dl 04/26/2019 13:25 [facility] HCT 45.1(H) 34.9 - 44.4 % 04/26/2019 13:25 [facility] MCV 84 81 - 98 fl 04/26/2019 13:25 [facility] MCH 27.3 26.7 - 33.3 pg 04/26/2019 13:25 [facility] MCHC 32.6 32.1 - 35.9 gm/dl 04/26/2019 13:25 [facility] RDW-CV 13.2 <14.7 % 04/26/2019 13:25 [facility] RDW-SD 40.3 <50.4 fl 04/26/2019 13:25 [facility] PLT 284 141 - 377 K/cmm 04/26/2019 13:25 [facility] MPV 11.2 9.5 - 12.7 fl 04/26/2019 13:25 [facility] % Neutrophils 64.8 % 04/26/2019 13:25 [facility] % Lymphocytes 27.6 % 04/26/2019 13:25 [facility] % Monocytes 5.3 % 04/26/2019 13:25 [facility] % Eosinophils 1.3 % 04/26/2019 13:25 [facility] % Basophils 0.7 % 04/26/2019 13:25 [facility] % Immature Grans 0.3 % 04/26/2019 13:25 [facility] ABS Neutrophils 7.71 2.20 - 8.85 K/cmm 04/26/2019 13:25 [facility] ABS Lymphs 3.28 1.09 - 3.30 K/cmm 04/26/2019 13:25 [facility] ABS Monocytes 0.63 0.1 - 0.8 K/cmm 04/26/2019 13:25 [facility] ABS Eosinophils 0.16 0.03 - 0.61 K/cmm 04/26/2019 13:25 EDT [facility] ABS Basophils 0.08 0.01 - 0.11 /[facility] 04/26/2019 13:25 [facility] ABS Immature Grans 0.04 0 - 0.06 /[facility] 04/26/2019 13:25 [facility] Type of Diff: Automated 04/26/2019 13:25 [facility] Blood specimen (specimen) BLOOD SPECIMEN / Unknown 04/26/2019 12:51 EDT 04/26/2019 13:16 EDT Edwige Keller DPM PACKAGES & DNA PROBE ORDERABLES [facility] [address] [place] [address] * (ABNORMAL) COMPREHENSIVE METABOLIC PANEL (CMP) (04/26/2019 12:51 EDT) Potassium 4.1 3.5 - 5.0 mEq/L 04/26/2019 13:58 [facility] Sodium 140 136 - 145 mEq/L 04/26/2019 13:58 [facility] Chloride 106 96 - 110 mEq/L 04/26/2019 13:58 [facility] CO2 21(L) 22 - 32 mEq/L 04/26/2019 13:58 [facility] Total Alkaline Phosphatase 109 38 - 126 U/L 04/26/2019 13:58 [facility] Bilirubin, Total 0.7 <1.4 mg/dl 04/26/20 19 13:58 [facility] AST 21 15 - 46 U/L 04/26/2019 13:58 [facility] ALT 22 <53 U/L 04/26/2019 13:58 [facility] Albumin 4.6 3.4 - 4.9 g/dl 04/26/2019 13:58 [facility] Total Protein 7.8 6.3 - 8.2 g/dl 04/26/2019 13:58 [facility] Creatinine 0.35(L) 0.52 - 1.04 mg/dl 04/26/2019 13:58 [facility] GFR, Calculated 123 >60 ml/min/1.7 3m2 04/26/2019 13:58 [facility] Comment: eGFR calculated using CKD-EPI equation for non Americans. Multiply eGFR by 1.16 for Americans. BUN 17 10 - 26 mg/dl 04/26/2019 13:58 [facility] Calcium 9.7 8.5 - 10.5 mg/dl 04/26/2019 13:58 [facility] Calculated Calcium 9.2 8.5 - 10.5 mg/dl 04/26/2019 13:58 [facility] Glucose, Serum 83 70 - 100 mg/dl 04/26/2019 13:58 [facility] Fasting? YES 04/26/2019 12:44 [facility] Blood specimen (specimen) BLOOD SPECIMEN / Unknown 04/26/2019 12:51 EDT 04/26/2019 13:16 EDT Edwige Keller DPM CHEMISTRY & BLOOD GA S ORDERABLES [facility] [address] [place] [address] * FOOT 3 OR MORE VIEWS (04/26/2019 9:51 EDT) Anatomical Region Laterality Modality Other 04/26/2019 9:51 EDT 04/26/2019 16:30 EDT Narrative 04/26/2019 16:30 EDT HISTORY: ?? L97.071-[id number] chronic ulcer of left heel and midfoot with fat layer exposed ([facility])-ICD-10; left heel ulcer plantar central heel, chronic COMPARISON: None. EXAM: FOOT 3 OR MORE VIEWS ??04/26/2019 9:51 AM TECHNIQUE: 3 views left foot FINDINGS / IMPRESSION: 1. ?? Ulcer with surrounding soft tissue thickening and suggestion of edema along the plantar surface of the foot at the level of the calcaneus without discrete osseous erosions. If there is persistent concern for osteomyelitis, an MRI is recommended. 2. ??Diffuse osteopenia. 3. ??Calcaneal enthesopathy. Procedure Note Clifford Santamaria MD, - 04/26/2019 HISTORY: L97.681-[id number] chronic ulcer of left heel and midfoot with fat layer exposed (HCC-CMS)-ICD-10; left heel ulcer plantar central heel, chronic COMPARISON: None. EXAM: FOOT 3 OR MORE VIEWS 04/26/2019 9:51 AM TECHNIQUE: 3 views left foot FINDINGS / IMPRESSION: 1. Ulcer with surrounding soft tissue thickening and suggestion of edema along the plantar surface of the foot at the level of the calcaneus without discrete osseous erosions. If there is persistent concern for osteomyelitis, an MRI is recommended. 2. Diffuse osteopenia. 3. Calcaneal enthesopathy. Edwige Keller DPM IMG DIAGNOSTIC IMAGI NG ORDERABLES documented in this encounter Visit Diagnoses Diagnosis Skin ulcer of left heel with fat layer exposed (HCC-CMS)- Primary Type 2 diabetes mellitus with diabetic polyneuropathy, without long-term current use of insulin (HCC-CMS) documented in this encounter Care Teams Oil Well Logger Relationship Specialty Start Date End Date Ruth Munoz, BLADDER TRIMMER [address] [place] [phone] PCP - General 04/26/19 06/19/23 documented as of this encounter
--- OUTSIDE RECORDS SUMMARY | 2024-05-15 11:03 | XMS_ITS | Encounter Summary ---
Author Organization [facility] Address [address] [place] [address] Care Team Providers Care Business Excellence Leader Name Role Phone AlexanderAidanantony Mcelroy APRN Primary Care Provider + Reason for Visit * Reason Onset Date Comments Coordination Of Care 05/21/2019 Encounter Details Date Type Department Care Team (Late st Contact Info) Description 05/21/2019 Telephone [facility] Case Management - [facility] [address] [place] [address] MAIN DEPARTMENT [phone] Frank Meek LICSW Coordination Of Care Social History Tobacco Use [...] encounter Miscellaneous Notes * Telephone Encounter - Frank Meek LICSW - 05/21/2019 1112 EDT Spoke with Martha who was requesting a hotel room due to having two scheduled OP appointments two days in row. I contacted OBGYN to see if that appointment could moved up a day but unfortunately the provider had no appointments available. I contacted Ortho and they were able to move appoitnment to same day as OBGYN appointment so that patient would only need to travel to [place] on 1 day. Updated patient re:appointment changes. [employer] documented in this encounter Plan of Treatment Upcoming Encounters Date Type Department Care Team (Late st Contact Info) Description 05/22/2024 10:00 EDT Office Visit [facility] Foot & Ankle Program - [address] [phone] Edwige Keller [address] [address] 07/18/2024 13:00 EDT Procedure visit [facility] Women's Services - [facility] [address] [place], [place] [phone] Jessica Murray NP 111 [facility], [facility], [address] [place] [address] documented as of this encounter Visit Diagnoses Not on filedocumented in this encounter Care Teams Business Excellence Leader Relationship Specialty Start Date End Date Ruth Munoz APRN 4 [facility] [place] [phone] PCP - General 04/26/19 06/19/23 documented as of this encounter
--- OUTSIDE RECORDS SUMMARY | 2024-05-15 11:03 | XMS_ITS | Encounter Summary ---
Author Organization [facility] Address [address] [place] [address] Care Team Providers Care Plate Molder Name Role Phone Nanda Read MD Primary Care Provider Unavailable Reason for Visit * Reason Onset Date Comments Results 04/05/2016 Encounter Details Date Type Department Care Team (Late st Contact Info) Description 04/05/2016 Telephone [facility] Women's Services - [facility] [address], [place] [phone] Janet Wallace FNP Results Social History Tobacco Use Types Packs/Day [...] encounter Miscellaneous Notes * Telephone Encounter - Janet Wallace FNP - 04/05/2016 1810 EDT Pt. Informed NILM with + HPV P: Discussed with Dr. Lubin Repeat colposcopy Pt. To schedule * Telephone Encounter - Janet Wallace FNP - 04/05/2016 1814 EDT Pt. Informed NIL * Telephone Encounter - Janet Wallace FNP - 04/05/2016 1814 EDT ----- Message from BERE Slater sent at 04/02/2016 23:04 EDT ----- Jessica Gonzales and Bren, Would one of you please address this with Martha in my absence (and also because I was going to confirm with you if she should have another colposcopy, vs repeat in a year. I think that each of you may have done a colposcopy for her in the past, she seems to alternate each year between having a positive and negative colposcopy). If you could please let her know the result and whether she should have a colpo, of if you want to advise, I can contact her when I return from vacation next week. Ana Luisa Boswell documented in this encounter Plan of Treatment Upcoming Encounters Date Type Department Care Team (Late st Contact Info) Description 05/22/2024 10:00 EDT Office Visit [facility] Foot & Ankle Program - [address] [place] [address] Edwige Keller DPM [address] [place] [address] 07/18/2024 13:00 EDT Procedure visit [facility] Women's Services - [address] [address] Jessica Murray, POLO 111 [facility], [facility], [address] [place] [address] documented as of this encounter Visit Diagnoses Not on filedocumented in this encounter Care Teams Plate Molder Relationship Specialty Start Date End Date Nanda Read MD PCP - General 05/08/09 05/20/18 documented as of this encounter
--- OUTSIDE RECORDS SUMMARY | 2024-05-15 11:03 | XMS_ITS | Encounter Summary ---
Author Organization [facility] Address [address] [place] [address] Care Team Providers Care Asset Protection Associate Name Role Phone MunozRuth jerome Lilibeth JUAREZ Primary Care Provider + Encounter Details Date Type Department Care Team (Late st Contact Info) Description 05/23/2019 Results Only [facility] Women's Services - [address] [address] Kassie Carreon PA-C 111 [facility], [address] [place] [address] Social History Tobacco Use Types [...] as of this encounter Miscellaneous Notes * Result Encounter Note - Kassie Carreon PA - 05/23/2019 6792 EDT ATR Jo to discuss pap result. No answer, left message that I was calling with results, can call back and speak with nurses. Pt with history of persistent/recurrent HPV. Was negative last year, but is positive this year. Would recommend colposcopy with Dr. Lubin, vaginal estrogen per protocol. If calls back, OK for nursesto review results and arrange for colpo appointment. If she requests to speak with me, I can call her later today, would ask that you send cortext as I may not log back into [facility] until much later today as I'm travelling back from [place]. documented in this encounter Plan of Treatment Upcoming Encounters Date Type Department Care Team (Late st Contact Info) Description 05/22/2024 10:00 EDT Office Visit [facility] Foot & Ankle Program - [address] [phone] Edwige Keller DPM [address] [place] [address] 07/18/2024 13:00 EDT Procedure visit [facility] Women's Services - [facility] [address] [place], [place] [phone] Jessica Murray NP 111 [facility], [address] [place] [address] documented as of this encounter Procedures Procedure Name Priority Date/Time Associated Diagnosis Comments HPV GENOTYPING 16, 18/45, THINPREP Routine 05/23/2019 8:48 EDT PAP TEST- RESULT ONLY Routine 05/23/2019 0:00 EDT documented in this encounter Results * (ABNORMAL) HPV GENOTYPING 16, 18/45, THINPREP (05/23/2019 8:48 EDT) Specimen Description Cervix, ThinPrep vial 06/11/2019 8:[address] [facility] HPV 16 RNA Result Negative 06/11/2019 15:[address] [facility] HPV 18/45 RNA Result POSITIVE(AA) 06/11/2019 15:[address] [facility] TOPOGRAPHY UNKNOWN / Unknown 05/23/2019 8:48 EDT 06/11/2019 8:48 EDT Kassie Carreon PA-C MICROBIOLOGY - GENERAL ORDERABLES [facility] [address] [place] [address] * PAP TEST- RESULT ONLY (05/23/2019 0:00 EDT) Pathology Report: CYTOPATHOLOGY REPORT Reports generated via electronic interface contain original data; however they are lacking the format of the original report. Caution should be taken when reading/interpreti ng unformatted reports. Name: ? JO JONES Moon ? Accession #: ? [id number] ? : ? 1965 (Age: 53) ??F ?Collect Date: ? 05/23/2019 ? Location: ? OBGYN ? Receive Date: ? 05/24/2019 ? Provider: KASSIE BLACKBURN Copy to: ? Final Report SPECIMEN ADEQUACY ? Satisfactory for Evaluation - transformation zone component present GENERAL CATEGORIZATION ? Negative for Intraepithelial Lesion or Malignancy ?? Infection History: Pos for HRHPV: recurrent Other: Additional clinical information: Z01.419 V72.31 Specimen/Source: ??Pap Test, Cervix/Endocervix, ThinPrep Imaging System with manual evaluation Document reviewed and electronically signed by: ? Kate Cadena, SCT(ASCP) ? Report ??Date: 06/03/2019 15:28 HPV with Pap Test ? Date Ordered: ? 06/02/2019 ? Status: ?? Signed Out ?Date Complete: ? 06/04/2019 ? By: ??System Interface ? Date Reported: ? 06/04/2019 ? Interpretation RESULT: POSITIVE FOR HIGH OR INTERMEDIATE RISK HPV. E6 OR E7 mRNA from one or more types of HPV types 16,18,31, 33,35,39,45,51,52, 56,58,59,66, and 68 is detected by paper tube grader mediated amplification. High and intermediate risk HPV types are associated with most squamous intraepithelial lesions and cervical cancers. Comments Document reviewed and electronically signed by: ? System Interface ? Report date: 06/04/2019 By the signature above, the attending physician certifies that he/she has personally conducted a gross and/or microscopic examination of the described specimens and rendered or confirmed the above diagnosis. End of Report [facility] 05/23/2019 05/24/2019 Kassie Carreon PA-C PATHOLOGY ROBINA GOLD [facility] [address] [place] [address] documented in this encounter Visit Diagnoses Not on filedocumented in this encounter Care Teams Asset Protection Associate Relationship Specialty Start Date End Date Ruth Munoz APRN [address] [place] [phone] PCP - General 04/26/19 06/19/23 documented as of this encounter
--- OUTSIDE RECORDS SUMMARY | 2024-05-15 11:03 | XMS_ITS | Encounter Summary ---
Author Organization [facility] Address [address] [place] [address] Care Team Providers Care Obgyn Nurse Name Role Phone MunozRuth Lilibeth JUAREZ Primary Care Provider + Encounter Details Date Type Department Care Team (Late st Contact Info) Description 05/23/2019 9:00 EDT - 05/23/2019 9:01 EDT Hospital Encounter [address] [address] Kassie Carreon PA-C 111 [facility], [facility] [address] [place] [address] Discharge Disposition: Home or Self Care Social [...] gynecological examination (general) (routine) without abnormal findings-Z01.419[ICD-10-CM] documented in this encounter Medications at Time [...] Description 05/22/2024 10:00 EDT Office Visit [facility] Foot & Ankle Program - [address] [place] [address] Edwige Keller DPM [address] [place] [phone] 07/18/2024 13:00 EDT Procedure visit [facility] Women's Services - [facility] [address] [place], [place] [phone] Jessica Murray NP 111 [facility], [facility], [address] [place] [address] documented as of this encounter Visit Diagnoses Not on filedocumented in this encounter Care Teams Obgyn Nurse Relationship Specialty Start Date End Date Ruth Munoz APRN [address] [place] [phone] PCP - General 04/26/19 06/19/23 documented as of this encounter
--- OUTSIDE RECORDS SUMMARY | 2024-05-15 11:03 | XMS_ITS | Encounter Summary ---
Author Organization [facility] Address [address] [place] [address] Care Team Providers Care Gristmiller Name Role Phone MunozRuth jerome Lilibeth JUAREZ Primary Care Provider + Encounter Details Date Type Department Care Team (Late st Contact Info) Description 06/10/2019 Orders Only [facility] Women's Services - [address] [address] Kassie Carreon PA-C 111 [facility], [address] [place] [address] Cervical high risk human papillomavirus [...] Info) Description 05/22/2024 10:00 EDT Office Visit [facility] Foot & Ankle Program - [facility] [address] [place] [address] Edwige Keller DPLilibeth [address] [place] [address] 07/18/2024 13:00 EDT Procedure visit [facility] Women's Services - [facility] [address] [place] [address] Jessica Murray NP 111 [facility], [facility], [address] [place] [address] documented as of this encounter Procedures Procedure Name Priority Date/Time Associated Diagnosis Comments OUTPATIENT ADD-ON Routine 06/10/2019 15: 35 EDT Cervical 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 documented in this encounter Results * OUTPATIENT ADD-ON (06/10/2019 15:35 EDT) Tests to be added 16/18 SUBTYPING ON RECENT PAP SMEAR. 06/10/2019 15:35 EDT [facility] Diagnosis Code SEE EPIC 06/10/2019 15:47 EDT [facility] Number for problems 847 06/10/2019 15:35 EDT [facility] Comment: 1400 (NOTE, I AM ON VACATION 06/10 06/17. Accession number ORDER [id number] PAP SMEAR 06/10/2019 15:47 EDT [facility] Acknowledge ABP Done 9 7:11 T [facility] BLOOD SPECIMEN / Unknown 06/10/2019 15:35 EDT 06/10/2019 15:46 EDT Kassie Carreon PA-C HEMATOLOGY & P F4 ORDERABLES [facility] [address] [place] [address] documented in this encounter Visit Diagnoses Diagnosis Cervical 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- Primary documented in this encounter Care Teams Gristmiller Relationship Specialty Start Date End Date Ruth Munoz, ELECTRIC WELL LOGGING OPERATOR [address] [place] [phone] PCP - General 04/26/19 06/19/23 documented as of this encounter
--- OUTSIDE RECORDS SUMMARY | 2024-05-15 11:03 | XMS_ITS | Encounter Summary ---
Author Organization [facility] Address [address] [place] [address] Care Team Providers Care Director Of Recruiting Name Role Phone MunozRuth jerome Lilibeth JUAREZ Primary Care Provider + Encounter Details Date Type Department Care Team (Late st Contact Info) Description 04/26/2019 Phlebotomy Only [address] [address] Digital Engineer, Outpatient Skin ulcer of left heel with fat layer exposed (HCC-CMS) (Primary Dx) Social History Tobacco Use Types [...] Info) Description 05/22/2024 10:00 EDT Office Visit [facility] Foot & Ankle Program - [address] [place] [address] Edwige Keller DPM [address] [facility] [place] [address] 07/18/2024 13:00 EDT Procedure visit [facility] Women's Services - [facility] [address] [place] [address] Jessica Murray, POLO 111 [facility], [facility], [address] [place] [address] documented as of this encounter Procedures Procedure Name Priority Date/Time Associated Diagnosis Comments SED RATE Routine 04/26/2019 12:51 EDT Skin ulcer of left heel with fat layer exposed (HCC-CMS) COMPLETE BLOOD COUNT AND DIFFERENTIAL Routine 04/26/2019 12:51 EDT Skin ulcer of left heel with fat layer exposed (HCC-CMS) C REACTIVE PROTEIN Routine 04/26/2019 12 :51 EDT Skin ulcer of left heel with fat layer exposed ([facility]-CMS) COMPREHENSIVE METABOLIC PANEL (CMP) Routine 04/26/2019 12:51 EDT Skin ulcer of left heel with fat layer exposed ([facility]-CMS) documented in this encounter Results * (ABNORMAL) COMPREHENSIVE METABOLIC PANEL (CMP) (04/26/2019 12:51 EDT) Potassium 4.1 3.5 - 5.0 mEq/L 04/26/2019 13:58 EDT [facility] Sodium 140 136 - 145 mEq/L 04/26/2019 13:58 EDT [facility] Chloride 106 96 - 110 mEq/L 04/26/2019 13:58 EDT [facility] CO2 21(L) 22 - 32 mEq/L 04/26/2019 13:58 EDT [facility] Total Alkaline Phosphatase 109 38 - 126 U/L 04/26/2019 13:58 [facility] Bilirubin, Total 0.7 <1.4 mg/dl 04/26/20 19 13:58 [facility] AST 21 15 - 46 U/L 04/26/2019 13:58 [facility] ALT 22 <53 U/L 04/26/2019 13:58 [facility] Albumin 4.6 3.4 - 4.9 g/dl 04/26/2019 13:58 [facility] Total Protein 7.8 6.3 - 8.2 g/dl 04/26/2019 13:58 [facility] Creatinine 0.35(L) 0.52 - 1.04 mg/dl 04/26/2019 13:58 [facility] GFR, Calculated 123 >60 ml/min/1.7 3m2 04/26/2019 13:58 [facility] Comment: eGFR calculated using CKD-EPI equation for non Americans. Multiply eGFR by 1.16 for Americans. BUN 17 10 - 26 mg/dl 04/26/2019 13:58 [facility] Calcium 9.7 8.5 - 10.5 mg/dl 04/26/2019 13:58 [facility] Calculated Calcium 9.2 8.5 - 10.5 mg/dl 04/26/2019 13:58 [facility] Glucose, Serum 83 70 - 100 mg/dl 04/26/2019 13:58 [facility] Fasting? YES 04/26/2019 12:44 [facility] Blood specimen (specimen) BLOOD SPECIMEN / Unknown 04/26/2019 12:51 EDT 04/26/2019 13:16 EDT Edwige Keller DPM CHEMISTRY & BLOOD GA S ORDERABLES [facility] [address] [place] [address] * (ABNORMAL) COMPLETE BLOOD COUNT AND DIFFERENTIAL (04/26/2019 12:51 EDT) WBC 11.90 4.0 - 12.4 K/cm 04/26/2019 13:25 [facility] RBC 5.38(H) 3.86 - 5.04 M/cmm 04/26/2019 13:25 [facility] Hemoglobin 14.7 11.6 - 15.2 gm/dl 04/26/2019 13:25 [facility] HCT 45.1(H) 34.9 - 44.4 % 04/26/2019 13:25 [facility] MCV 84 81 - 98 fl 04/26/2019 13:25 [facility] MCH 27.3 26.7 - 33.3 pg 04/26/2019 13:25 [facility] MCHC 32.6 32.1 - 35.9 gm/dl 04/26/2019 13:25 [facility] RDW-CV 13.2 <14.7 % 04/26/2019 13:25 [facility] RDW-SD 40.3 <50.4 fl 04/26/2019 13:25 [facility] PLT 284 141 - 377 K/[facility] 04/26/2019 13:25 [facility] MPV 11.2 9.5 - 12.7 fl 04/26/2019 13:25 [facility] % Neutrophils 64.8 % 04/26/2019 13:25 [facility] % Lymphocytes 27.6 % 04/26/2019 13:25 [facility] % Monocytes 5.3 % 04/26/2019 13:25 [facility] % Eosinophils 1.3 % 04/26/2019 13:25 [facility] % Basophils 0.7 % 04/26/2019 13:25 [facility] % Immature Grans 0.3 % 04/26/2019 13:25 [facility] ABS Neutrophils 7.71 2.20 - 8.85 K/cmm 04/26/2019 13:25 [facility] ABS Lymphs 3.28 1.09 - 3.30 K/cm 04/26/2019 13:25 EDT [facility] ABS Monocytes 0.63 0.1 - 0.8 K/cm 04/26/2019 13:25 EDT [facility] ABS Eosinophils 0.16 0.03 - 0.61 K/cm 04/26/2019 13:25 EDT [facility] ABS Basophils 0.08 0.01 - 0.11 K/[facility] 04/26/2019 13:25 EDT [facility] ABS Immature Grans 0.04 0 - 0.06 K/[facility] 04/26/2019 13:25 EDT [facility] Type of Diff: Automated 04/26/2019 13:25 EDT [facility] Blood specimen (specimen) BLOOD SPECIMEN / Unknown 04/26/2019 12:51 EDT 04/26/2019 13:16 EDT Edwige Keller DPM PACKAGES & DNA PROBE ORDERABLES Performing Organization Address City/[facility]/ZIP Co de Phone Number [facility] [address] [place] [address] * C REACTIVE PROTEIN (04/26/2019 12:51 EDT) C Reactive Protein <7.0 <10.0 mg/L 04/26/2019 13:58 EDT [facility] Blood specimen (specimen) BLOOD SPECIMEN / Unknown 04/26/2019 12:51 EDT 04/26/2019 13:16 EDT Edwige CARCAMOM CHEMISTRY & BLOOD GA S ORDERABLES Performing Organization Address City/[facility]/ZIP Co de Phone Number [facility] [address] [place] [address] * SED. RATE:WESTERGREN (04/26/2019 12:51 EDT) Sed. Rate Westergren 16 0 - 30 mm/hr 04/26/2019 13:24 EDT [facility] Blood specimen (specimen) BLOOD SPECIMEN / Unknown 04/26/2019 12:51 EDT 04/26/2019 13:16 EDT Edwige Mcelroy Krishna DPM HEMATOLOGY & PF4 ORD ERABLES [facility] [address] [place] [address] documented in this encounter Visit Diagnoses Diagnosis Skin ulcer of left heel with fat layer exposed (HCC-CMS)- Primary documented in this encounter Care Teams Director Of Recruiting Relationship Specialty Start Date End Date Ruth Munoz, WELDING MACHINE OPERATOR [place] [address] [place] [phone] PCP - General 04/26/19 06/19/23 documented as of this encounter
--- OUTSIDE RECORDS SUMMARY | 2024-05-15 11:03 | XMS_ITS | Encounter Summary ---
Author Organization [facility] Address [address] [place] [address] Care Team Providers Care Cable Dispatcher Name Role Phone Ruth Munoz APRN Primary Care Provider + Reason for Visit * Reason Comments Foot Problem Encounter Details Date Type Department Care Team (Late st Contact Info) Description 05/23/2019 9:30 EDT Office Visit [facility] Foot & Ankle Program - [address] [address] Edwige Keller, DP [address] [place] [address] Ulcer of heel, left, with fat layer exposed ([facility]) (Primary Dx); Type 2 diabetes mellitus with diabetic polyneuropathy, with long-term current use of insulin ([facility]) Discharge Disposition: Auto Discharge Social History Tobacco [...] heel and midfoot with fat layer exposed-L97.422[ICD-10-CM] documented in this encounter Discharge Disposition Disposition Code Departure Means Destination Auto Discharge documented in this encounter Progress Notes * Krishna Dpm, Edwige M - 05/23/2019 0930 EDT Images from the original note were not included. Martha Benoit is a very pleasant 53 y.o. female patient who presents for follow up chronic left plantar heel ulcer. She reports that she has been doing well. She has been trying to stay off the foot is much she is she is able. She does not do much walking, but does occasionally put some weight on the foot for transfers and short walks. She has not had any pain in the foot. VNA has been changing the dressing regularly. She denies any nausea, vomiting, fever, chills. Patient Active Problem List Diagnosis Date Noted ??? Diabetes mellitus ([facility]) 08/11/2014 Priority: Medium ??? Vitamin D deficiency 01/28/2010 ??? Morbid obesity ([facility]) 01/22/2010 ??? Mild dysplasia of cervix ([facility] [...] ??? Diabetes Sister ??? Heart Disease Sister [place] at age 42 = ??? Diabetes Mother [...] current facility-administered medications for this visit. No Active Allergies Review of Systems A ten point [...] to all toes. ??Ulcer plantar central left heel, as picturedbelow. Fibro-granular wound base. ??Does not undermine. Does not tunnel.??No fluid expressed. ??No pain on probing. ??No malodor. ??No necrosis. ??Fibro-granular wound base. ??Wound measures 4 x 2 x 2 mm deep. ??No other open lesions. ??Protective sensation absent. ??Unable to assess manual muscle testing on the left. ??Psoriatic plaques to both lower legs. ASSESSMENT: 1. Ulcer of heel, left, with fat layer exposed ([facility]) 2. Type 2 diabetes mellitus with diabetic polyneuropathy, with long-term current use of insulin ([facility]) No orders of the defined types were placed in this encounter. PLAN: Ms. Benoit presents today for follow-up chronic left plantar central heel ulcer. This has improved in size since last visit. No signs of infection today. I did debride the wound, skin and subcutaneoustissue, with a 15 blade, less than 20 cm??. We are going to continue with dressing changes per VNA.Instructions below. She is going to continue to stay off the foot is much as she is able and elevate the foot. We did discuss that if this is not continuing to improve may consider a biopsy of the wound given its chronic nature. May also consider a total contact cast. She is not interested in casting at this time. I am going to see her back in 2 weeks. She knows to call before then if any problems arise and is happy with this plan. Instructions for VNA: Change dressing to left central heel ulcer 3 times per week. ??Cleanse wound with Dakin's solution. Pack with promogran jamie dressing, cut to size of wound. Apply well padded gauze dressing.??If she cannot tolerate guaze wrap, ok to use mepilex border dressing over the packing. ??She is nonweightbearing on this side. She has follow up with me in 2 weeks. Portions of this document have been prepared with speech recognition software or keyboard senior clinical data manager techniques. Minor irregularities or keyboarding misprints may be present * Ida Carcamo LPN - 05/23/2019 0930 EDT [facility] Ida Carcamo LPN documented in this encounter Plan of Treatment Upcoming Encounters Date Type Department Care Team (Late st Contact Info) Description 05/22/2024 10:00 EDT Office Visit [facility] - [address] [place] [address] Edwige Keller DPM [address] [place] [address] 07/18/2024 13:00 EDT Procedure visit [facility] Women's Services - [facility] [address] [place] [address] Jessica Murray, POLO 111 [facility], [address] [place] [phone] documented as of this encounter Visit Diagnoses Diagnosis Ulcer of heel, left, with fat layer exposed ([facility])- Primary Type 2 diabetes mellitus with diabetic polyneuropathy, with long-term current use of insulin ([facility]) documented in this encounter Care Teams Cable Dispatcher Relationship Specialty Start Date End Date Ruth Munoz, SIGNAL TOWER OPERATOR [address] [place] [phone] PCP - General 04/26/19 06/19/23 documented as of this encounter
--- OUTSIDE RECORDS SUMMARY | 2024-05-15 11:04 | XMS_ITS | Encounter Summary ---
Author Organization [facility] Address [address] [place] [address] Care Team Providers Care Business Risk Consultant Name Role Phone Nanda Read MD Primary Care Provider Unavailable Encounter Details Date Type Department Care Team (Latest Contact Info) Description 09/23/2014 17:37 EST - 09/23/2014 23:59 EST Hospital Encounter [address] [address] Unknown, Provider, Discharge Disposition: Home or Self [...] :01 EDT documented as of this encounter Medications at Time of Discharge Medication Sig Dispensed Refills Start Date End Date ergocalciferol (DRISDOL; VITAMIN D2) 1,250 mcg (50,000 unit) capsule Take 1 Capsule by mouth once a week. furosemide (LASIX) 40 mg tablet Take 40 mg by mouth daily. Reported on 03/13/2017 glipiZIDE (GLUCOTROL) 10 mg tablet Take 1 Tablet by mouth 2 times daily. insulin lispro (HUMALOG) 100 unit/mL injectionIndications:pe r patient insulin called 70/30 Inject into the skin 3 times daily. Sliding scale metformin (GLUCOPHAGE) 500 mg tablet Take 1 Tablet by mouth 3 times daily before meals. oxyCODONE-acetaminophen (PERCOCET) 10-325 mg per tablet Take 1 Tablet by mouth every 4 hours as needed for Pain. Takes 5 tabs daily folic acid (FOLVITE) 1 mg tablet Take 1 mg by mouth daily. Reported on 03/13/2017 01/08/2024 POTASSIUM CHLORIDE ORAL Take 10 mEq by mouth 2 times daily. Reported on 03/13/2017 05/23/2019 terconazole (TERAZOL 3) 0.8 % vaginal cream Place 1 Applicator vaginally daily For 3 nights. 1 Tube 2 08/11/2014 07/28/2015 documented as of this encounter Discharge Disposition Disposition Code Departure Means Destination Home or Self Group Home documented in this encounter Plan of Treatment Upcoming Encounters Date Type Department Care Team (Late st Contact Info) Description 05/22/2024 10:00 EDT Office Visit [facility] Foot & Ankle Program - [address] [place] [address] Edwige Keller DPM [address] [place] [phone] 07/18/2024 13:00 EDT Procedure visit [facility] Women's Services - [address] [id number] Jessica Murray NP [address] [facility], [address] [place] [address] documented as of this encounter Visit Diagnoses Not on filedocumented in this encounter Care Teams Business Risk Consultant Relationship Specialty Start Date End Date Nanda Read MD PCP - General 05/08/09 05/20/18 documented as of this encounter
--- OUTSIDE RECORDS SUMMARY | 2024-05-15 11:04 | XMS_ITS | Encounter Summary ---
Author Organization [facility] Address [address] [place] [address] Care Team Providers Care Coat Examiner Name Role Phone Nanda Read MD Primary Care Provider Unavailable Encounter Details Date Type Department Care Team (Late st Contact Info) Description 11/28/2011 Results Only [facility] Gynecologic Oncology - [address] [address] Nidhi Burnham MD 111 [facility], [address] [place] [phone] Social History Tobacco Use Types Packs/Day Years Used Date Smoking Tobacco: Never Alcohol Use Standard Drinks/Week Comments No 0 (1 standard drink = 0.6 oz pur e alcohol) Sex and Gender Information Value Date Recorded Sex Assigned at Female 02/22/2021 15:01 EDT Gender Identity Female 04/30/2020 8:27 EDT Sexual Orientation Straight 02/22/2021 15 :01 EDT documented as of this encounter Plan of Treatment Upcoming Encounters Date Type Department Care Team (Late st Contact Info) Description 05/22/2024 10:00 EDT Office Visit [facility]le [facility] - Melissa [address] [place], [place] [address]wal[place] [address] Edwige Keller DPM [address] [place] [phone] 07/18/2024 13:00 EDT Procedure visit [facility] Women's Services - [facility] [address] [place], [place] [address] Jessica Murray, POLO 111 [facility], [address] [place] [address] documented as of this encounter Procedures Procedure Name Priority Date/Time Associated Diagnosis Comments PAP TEST- RESULT ONLY Routine 11/28/2011 0:00 EST documented in this encounter Results * PAP TEST- RESULT ONLY (11/28/2011 0:00 EST) Pathology Report: CYTOPATHOLOGY REPORT Reports generated via electronic interface contain original data; however they are lacking the format of the original report. Caution should be taken when reading/interpreti ng unformatted reports. Name: ? JO JONES Moon ? Accession #: ? [id number] : ? 1965 (Age: 46) ??F ?Collect Date: ? 11/28/2011 Location: ? [facility] ? Receive Date: ? 11/29/2011 Provider: ?NIDHI BURNHAM MD Copy to: ? Specimen/Source: ?Pap Test, Cervix, ThinPrep Imaging System with manual evaluation Last Menstrual Period: ? Other: ? Additional clinical information: hx abn paps ? SPECIMEN ADEQUACY ? Satisfactory for Evaluation - transformation zone component present GENERAL CATEGORIZATION ? Negative for Intraepithelial Lesion or Malignancy INTERPRETATION ? Reactive cellular changes associated with inflammation present (includes repair). ? Document reviewed and electronically signed by: ? RJ PACHECO MD ? Report Date: ??12/02/2011 11:14 End of Report [facility] 11/28/2011 11/29/2011 Nidhi Burnham MD PATHOLOGY ORDERABLES Performing Organization Address City/State/[facility] Co de Phone Number [facility] [address] [place] [address] documented in this encounter Visit Diagnoses Not on filedocumented in this encounter Care Teams Coat Examiner Relationship Specialty Start Date End Date Nanda Read MD PCP - General 05/08/09 05/20/18 documented as of this encounter
--- OUTSIDE RECORDS SUMMARY | 2024-05-15 11:04 | XMS_ITS | Encounter Summary ---
Author Organization [facility] Address [address] [place] [address] Care Team Providers Care Insurance Claims Supervisor Name Role Phone Nanda Read MD Primary Care Provider Unavailable Encounter Details Date Type Department Care Team (Late st Contact Info) Description 02/01/2013 Results Only [facility] Women's Services - [address] [phone] Kassie Carreon PA-C 111 [facility], [address] [place] [phone] Social History Tobacco Use Types Packs/Day Years [...] Description 05/22/2024 10:00 EDT Office Visit [facility] Foot & Ankle Program - [place] [address] [place] [address] [place] [address] Edwige Keller DPM [address] [place] [phone] 07/18/2024 13:00 EDT Procedure visit [facility] Women's Services - [facility] [address] [place], [place] [phone] Jessica Murray NP 111 [facility], [address] [place] [address] documented as of this encounter Procedures Procedure Name Priority Date/Time Associated Diagnosis Comments PAP TEST- RESULT ONLY Routine 02/01/2013 0:00 EDT documented in this encounter Results * PAP TEST- RESULT ONLY (02/01/2013 0:00 EDT) Pathology Report: CYTOPATHOLOGY REPORT Reports generated via electronic interface contain original data; however they are lacking the format of the original report. Caution should be taken when reading/interpreti ng unformatted reports. Name: ? JO JONES ? Accession #: ? [id number] ? : ? 1965 (Age: 47) ??F ?Collect Date: ? 02/01/2013 ? Location: ? OBGYN ? Receive Date: ? 02/05/2013 ? Provider: KASSIE BLACKBURN Copy to: ? Final Report SPECIMEN ADEQUACY ? Satisfactory for Evaluation - transformation zone component present GENERAL CATEGORIZATION ? Negative for Intraepithelial Lesion or Malignancy INTERPRETATION ? Reactive cellular changes associated with inflammation present (includes repair). Fungal organisms present morphologically consistent with Kelly species. Previous Gynecologic Pathology: MARGIE: history of cervical dysplasia Treatment History: Miscellaneous treatment Other: Additional clinical information: follow up pap smear for + HR HPV Specimen/Source: ??Pap Test, Cervix/Endocervix, ThinPrep Imaging System with manual evaluation Document reviewed and electronically signed by: ? DMITYR WASHINGTON MD [facility] ? Report ??Date: 02/08/2013 17:32 HPV with Pap Test ? Date Ordered: ? 02/08/2013 ? Status: ?? Signed Out ?Date Complete: ? 02/13/2013 ? By: ??System Interface ? Date Reported: ? 02/13/2013 ? Interpretation RESULT: Negative for HPV. No E6 or E7 mRNA is detected from HPV types 16,18,31,33,35, 39,45,51,52,56,58, 59,66, and 68 by automatic outsole cutter mediated amplification. Comments Document reviewed and electronically signed by: ? System Interface ? Report date: 02/13/2013 By the signature above, the attending physician certifies that he/she has personally conducted a gross and/or microscopic examination of the described specimens and rendered or confirmed the above diagnosis. End of Report [facility] 02/01/2013 02/05/2013 Kassie Carreon PA-C PATHOLOGY ROBINA G[facility] Organization Address City/State/ZIP Co de Phone Number [facility] [address] [place] [address] documented in this encounter Visit Diagnoses Not on filedocumented in this encounter Care Teams Insurance Claims Supervisor Relationship Specialty Start Date End Date Nanda Read MD PCP - General 05/08/09 05/20/18 documented as of this encounter
--- OUTSIDE RECORDS SUMMARY | 2024-05-15 11:04 | XMS_ITS | Encounter Summary ---
Author Organization [facility] Address [address] [place] [address] Care Team Providers Care Gas Jockey Name Role Phone Nanda Read MD Primary Care Provider Unavailable Reason for Visit * Reason Comments Follow-up six month follow up Encounter Details Date Type Department Care Team (Late st Contact Info) Description 02/01/2013 16:00 EDT Office Visit [facility] Women's Services - [address] [address] Kassie Carreon PA-C 111 [facility], [address] [place] [address] Cervical high risk human papillomavirus [...] Sign Reading Time Taken Comments Blood Pressure 112/62 02/01/2013 1556 EDT Pulse - - Temperature - - Respiratory Rate - - Oxygen Saturation - - Inhaled Oxygen Concentration - - Weight - - Height - - Body Mass Index - - documented in this encounter Progress Notes * Kassie Carreon PA - 02/01/2013 1632 EDT Subjective: Patient ID: Martha Benoit is an 47 y.o. female. Chief Complaint Patient presents with ??? Follow-up six month follow up HPI Martha Benoit is a 47 y.o. woman who presents for follow up pap smear because of a history LGSIL. On 08/15/2009, Martha underwent a LEEP and laser of posterior wall of the vagina because of persistentLGSIL. Pap smear on 12/2009 demonstrated ASCUS and pap smear from 06/2010 and 11/2010, 05/2011, [place] [id number] were negative for any dysplasia or malignancy, however her last pap smear was positive for HPV, and a plan was made to repeat her pap smear in 6 months. She presents today for repeat pap smear. She otherwise states that her menses are regular, monthly without significant menorrhagia or dysmenorrhea. States not currently sexually active. Denies discharge or odor. Has not had mammograms, states that when she ws 38 she had a workup for an abnormal mammogram, which was distressing for her, she does not wish to have a breast exam or a mammogram. Patient Active Problem List Diagnoses ??? Mild Dysplasia of Cervix ??? Dysplasia of Vagina ??? Morbid obesity ??? Vitamin D deficiency Past Medical History Diagnosis Date ??? Unspecified cerebral artery occlusion with cerebral infarction Past Surgical History Procedure Date ??? Leep 07/15/2009 ??? Cervix lesion destruction 07/15/2009 ??? Tubal ligation Family History Problem Relation Age of Onset ??? Colon Cancer Father ??? Diabetes Father ??? Stroke Father ??? Cervical Cancer Sister ??? Diabetes Sister ??? Heart Disease Sister [place] at age 42 = ??? Diabetes Mother ??? Diabetes Brother ??? Diabetes Maternal Aunt ??? Diabetes Maternal Uncle Social History Substance Use Topics ??? Smoking status: Never Smoker ??? Smokeless tobacco: Not on file ??? Alcohol Use: No Current Outpatient Prescriptions on File Prior to Visit Medication Sig Dispense Refill ??? pregabalin (LYRICA) 100 mg capsule Take 100 mg by mouth 2 times daily. ??? folic acid (FOLVITE) 1 mg tablet Take 1 mg by mouth daily. ??? insulin lispro (HUMALOG) 100 unit/mL injection Inject 20 Units into the skin 3 times daily before meals. ??? ergocalciferol (VITAMIN D) 50,000 unit capsule Take 50,000 Units by mouth twice a week. ??? Exenatide (BYETTA) 10 mcg/0.04 mL PnIj Inject 10 mcg into the skin 2 times daily. ??? insulin glargine (LANTUS SOLOSTAR PEN) 300 unit/3 mL InPn Inject 84 Units into the skin once daily. ??? metformin (GLUCOPHAGE) 500 mg tablet Take 500 mg by mouth 3 times daily before meals. ??? glipiZIDE (GLUCOTROL) 10 mg tablet Take 10 mg by mouth 2 times daily. ??? POTASSIUM CHLORIDE ORAL Take 10 mEq by mouth 2 times daily. ??? pregabalin (LYRICA) 200 mg capsule Take 200 mg by mouth 2 times daily. ??? oxycodone-acetaminophen (PERCOCET) 5-325 mg per tablet Take 1 Tab by mouth every 4 hours as needed for Pain. Takes 5 tabs daily ??? Thioctic Acid (ALPHA LIPOIC ACID) 100 mg Cap Take 1 Tab by mouth 2 times daily. ??? furosemide (LASIX) 40 mg tablet Take 40 mg by mouth daily. Allergies Allergen Reactions ??? Codeine Nausea Only Per h /p Review of Systems Constitutional: Negative. HENT: Negative. Eyes: Negative. Respiratory: Negative. Cardiovascular: Negative. Gastrointestinal: Negative. Genitourinary: Negative. Musculoskeletal: Negative. Skin: Negative. Neurological: Negative. Endo/Heme/Allergies: Negative. Psychiatric/Behavioral: Negative. - See HPI Objective: BP 112/62 Physical Exam Constitutional: She appears well-developed and well-nourished. Cardiovascular: Normal rate and regular rhythm. Exam reveals no gallop and no friction rub. No murmur heard. Pulmonary/Chest: Effort normal. No respiratory distress. She has no wheezes. She has no rales. She exhibits no tenderness. Abdominal: Soft. She exhibits no distension and no mass. There is no tenderness. There is no rebound and no guarding. Genitourinary: There is no rash, tenderness, lesion or injury on the right labia. There is no rash,tenderness, lesion or injury on the left labia. Uterus is not deviated, not enlarged, not fixed andnot tender. Cervix exhibits no motion tenderness, no discharge and no friability. Right adnexum displays no mass, no tenderness and no fullness. Left adnexum displays no mass, no tenderness and no fullness. No erythema, tenderness or bleeding around the vagina. No foreign body around the vagina. Nosigns of injury around the vagina. No vaginal discharge found. Assessment: History of cervical dysplasia, positive HPV infection. Plan: There are no diagnoses linked to this encounter. Pap smear obtained with HPV regardless, will follow result and proceed accordingly. BERE Cabrera documented in this encounter Plan of Treatment Upcoming Encounters Date Type Department Care Team (Late st Contact Info) Description 05/22/2024 10:00 EDT Office Visit [facility] Foot & Ankle Program - [address] [address] Edwige Keller [address] [phone] 07/18/2024 13:00 EDT Procedure visit [facility] Women's Services - [address] [phone] Jessica Murray NP [address] [facility], [address] [place] [address] documented as of this encounter Visit Diagnoses Diagnosis Cervical 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- Primary documented in this encounter Care Teams Gas Jockey Relationship Specialty Start Date End Date Nanda Read MD PCP - General 05/08/09 05/20/18 documented as of this encounter
--- OUTSIDE RECORDS SUMMARY | 2024-05-15 11:04 | XMS_ITS | Encounter Summary ---
Author Organization [facility] Address [address] [place] [address] Care Team Providers Care Music Publisher Name Role Phone Nanda Read MD Primary Care Provider Unavailable Reason for Visit * Reason Onset Date Comments Results 03/31/2015 Encounter Details Date Type Department Care Team (Late st Contact Info) Description 03/31/2015 Telephone [facility] Women's Services - [facility] [address] [place], [place] [phone] Carolina Schroeder, RN Results Social History Tobacco Use Types Packs/Day Years Used Date Smoking Tobacco: Never Alcohol Use Standard Drinks/Week Comments No 0 (1 standard drink = 0.6 oz pur e alcohol) Sex and Gender Information Value Date Recorded Sex Assigned at Female 02/22/2021 15:01 EDT Gender Identity Female 04/30/2020 8:27 EDT Sexual Orientation Straight 02/22/2021 15 :01 EDT documented as of this encounter Miscellaneous Notes * Telephone Encounter - Carolina Schroeder RN - 03/31/2015 1122 EDT PC/Pt: requesting results of PAP/HPV done 03/06/15. H/o abnml PAPs, has had LEEP & Colpo procedures in past. I notified patient of neg/neg results, made YRL/PAP appt for 02/2016, mailed a requested copy of herPAP/HPV to her home address and apologized for the delay in getting the results to her. documented in this encounter Plan of Treatment Upcoming Encounters Date Type Department Care Team (Late st Contact Info) Description 05/22/2024 10:00 EDT Office Visit [facility] Foot & Ankle Program - [address] [place] [address] Edwige Keller DPM [address] [place] [phone] 07/18/2024 13:00 EDT Procedure visit [facility] Women's Services - [facility] [address] [place] [address] Jessica Murray NP [address] [facility], [address] [place] [phone] documented as of this encounter Visit Diagnoses Not on filedocumented in this encounter Care Teams Music Publisher Relationship Specialty Start Date End Date Nanda Read MD PCP - General 05/08/09 05/20/18 documented as of this encounter
--- OUTSIDE RECORDS SUMMARY | 2024-05-15 11:04 | XMS_ITS | Encounter Summary ---
Author Organization [facility] Address [address] [place] [address] Care Team Providers Care Vacuum Bottle Assembler Name Role Phone Nanda Read MD Primary Care Provider Unavailable Encounter Details Date Type Department Care Team (Late st Contact Info) Description 05/25/[address] [facility] Women's Services - [address] [id number] Kassie Carreon PA-C [address] [facility], [address] [place] [phone] Social History Tobacco Use Types Packs/Day Years [...] Description 05/22/2024 10:[address] [facility] Foot & Ankle Program - [place] [address] [place] [address] [place] [address] Edwige Keller DPM [address] [place] [phone] 07/18/2024 13:[address] [facility] Women's Services - [facility] [address] [place], [place] [phone] Jessica Murray NP [address] [facility], [address] [place] [address] documented as of this encounter Procedures Procedure Name Priority Date/Time Associated Diagnosis Comments PAP TEST- RESULT ONLY Routine 05/25/2012 0:00 EDT documented in this encounter Results * PAP TEST- RESULT ONLY (05/25/2012 0:00 EDT) Pathology Report: CYTOPATHOLOGY REPORT Reports generated via electronic interface contain original data; however they are lacking the format of the original report. Caution should be taken when reading/interpreti ng unformatted reports. Name: ? JO JONES ? Accession #: ? [id number] ? : ? 1965 (Age: 46) ??F ?Collect Date: ? 05/25/2012 ? Location: ? OBGYN ? Receive Date: ? 05/28/2012 ? Provider: KASSIE BLACKBURN Copy to: ? Final Report SPECIMEN ADEQUACY ? Satisfactory for Evaluation - transformation zone component present GENERAL CATEGORIZATION ? Negative for Intraepithelial Lesion or Malignancy INTERPRETATION ? Reactive cellular changes associated with inflammation present (includes repair). Previous Gynecologic Pathology: LSIL: persistent Treatment History: LEEP: for persistent LSIL 2008 Specimen/Source: ??Pap Test, Cervix/Endocervix, ThinPrep Imaging System with manual evaluation Document reviewed and electronically signed by: ? RJ PACHECO MD ? Report ??Date: 06/04/2012 15:02 HPV with Pap Test ? Date Ordered: ? 06/04/2012 ? Status: ?? Signed Out ?Date Complete: ? 06/08/2012 ? By: ??System Interface ? Date Reported: ? 06/08/2012 ? Interpretation RESULT: Positive for high or intermediate risk HPV. E6 OR E7 mRNA from one or more types of HPV types 16,18,31, 33,35,39,45,51,52, 56,58,59,66, and 68 is detected by lip of shank cutter mediated amplification. High and intermediate risk HPV types are associated with most squamous intraepithelial lesions and cervical cancers. Comments Document reviewed and electronically signed by: ? System Interface ? Report date: 06/08/2012 By the signature above, the attending physician certifies that he/she has personally conducted a gross and/or microscopic examination of the described specimens and rendered or confirmed the above diagnosis. End of Report [facility] 05/25/2012 05/28/2012 Kassie Carreon PA-C PATHOLOGY ROBINA GOLD [facility] Organization Address City/State/ZIP Co de Phone Number [facility] [address] [place] [address] documented in this encounter Visit Diagnoses Not on filedocumented in this encounter Care Teams Vacuum Bottle Assembler Relationship Specialty Start Date End Date Nanda Read MD PCP - General 05/08/09 05/20/18 documented as of this encounter
--- OUTSIDE RECORDS SUMMARY | 2024-05-15 11:04 | XMS_ITS | Encounter Summary ---
Author Organization [facility] Address [address] [place] [address] Care Team Providers Care Bartender Manager Name Role Phone Nanda Read MD Primary Care Provider Unavailable Encounter Details Date Type Department Care Team (Late st Contact Info) Description 03/11/2016 Results Only [facility] Women's Services - [address] [address] Kassie Carreon PA-C [address] [facility], Level 2 [place] [address] Social History Tobacco Use Types [...] 10:00 EDT Office Visit [facility] Foot & Ankle Program - [facility] [address] [facility] [place] [address] Edwige Keller DPLilibeth [address] [facility] [place] [address] 07/18/2024 13:00 EDT Procedure visit [facility] Women's Services - [facility] [address] [place] [address] Jessica Murray, POLO 111 [facility], [address] [place] [address] documented as of this encounter Procedures Procedure Name Priority Date/Time Associated Diagnosis Comments PAP TEST- RESULT ONLY Routine 03/11/2016 0:00 EDT documented in this encounter Results * PAP TEST- RESULT ONLY (03/11/2016 0:00 EDT) Pathology Report: CYTOPATHOLOGY REPORT Reports generated via electronic interface contain original data; however they are lacking the format of the original report. Caution should be taken when reading/interpreti ng unformatted reports. Name: ? JO JONES Moon ? Accession #: ? [id number] ? : ? 1965 (Age: 50) ??F ?Collect Date: ? 03/11/2016 ? Location: ? OBGYN ? Receive Date: ? 03/15/2016 ? Provider: KASSIE BLACKBURN Copy to: ? Final Report SPECIMEN ADEQUACY ? Satisfactory for Evaluation - transformation zone component present GENERAL CATEGORIZATION ? Negative for Intraepithelial Lesion or Malignancy ?? Hormonal/Contracep tive status: None Previous Gynecologic Pathology: Yes Treatment History: Yes Specimen/Source: ??Pap Test, Diagnostic, Cervix/Endocervix, ThinPrep Imaging System with manual evaluation Document reviewed and electronically signed by: ? HUMAIRA Sheets(ASCP) ? Report ??Date: 03/23/2016 12:57 HPV with Pap Test ? Date Ordered: ? 03/23/2016 ? Status: ?? Signed Out ?Date Complete: ? 03/25/2016 ? By: ??System Interface ? Date Reported: ? 03/25/2016 ? Interpretation RESULT: Positive for high or intermediate risk HPV. E6 OR E7 mRNA from one or more types of HPV types 16,18,31, 33,35,39,45,51,52, 56,58,59,66, and 68 is detected by contract clerk mediated amplification. High and intermediate risk HPV types are associated with most squamous intraepithelial lesions and cervical cancers. Comments Document reviewed and electronically signed by: ? System Interface ? Report date: 03/25/2016 By the signature above, the attending physician certifies that he/she has personally conducted a gross and/or microscopic examination of the described specimens and rendered or confirmed the above diagnosis. End of Report [facility] 03/11/2016 03/15/2016 Kassie Carreon PA-C PATHOLOGY ROBINA GOLD [facility] [address] [place] [address] documented in this encounter Visit Diagnoses Not on filedocumented in this encounter Care Teams Bartender Manager Relationship Specialty Start Date End Date Nanda Read MD PCP - General 05/08/09 05/20/18 documented as of this encounter
--- OUTSIDE RECORDS SUMMARY | 2024-05-15 11:04 | XMS_ITS | Encounter Summary ---
Author Organization [facility] Address [address] [place] [address] Care Team Providers Care Electronic News Gathering Camera Person Name Role Phone Nanda Read MD Primary Care Provider Unavailable Reason for Visit * Reason Comments Vaginitis burning,itching Encounter Details Date Type Department Care Team (Late st Contact Info) Description 08/11/2014 13:30 EDT Office Visit [facility] Women's Services - [address] [address] Janet Wallace, SHIRA Vaginitis and vulvovaginitis, unspecified (Primary Dx) Discharge Disposition: Auto Discharge Social [...] Sign Reading Time Taken Comments Blood Pressure 128/64 08/11/2014 1331 EDT Pulse - - Temperature - - Respiratory Rate - - Oxygen Saturation - - Inhaled Oxygen Concentration - - Weight 112.5 kg (248 lb) 08/11/2014 1331 EDT Height 157.5 cm (5' 2.01) 08/11/2014 1331 EDT Body Mass Index 45.35 08/11/2014 1331 EDT documented in this encounter Discharge Diagnoses Diagnosis 616.10 VAGINITIS NOS[ICD-9-CM] documented in this encounter Ordered Prescriptions Prescription Sig Dispensed Refills Start Date End Da te terconazole (TERAZOL 3) 0.8 % vaginal cream Place 1 Applicator vaginally daily For 3 nights. 1 Tube 2 08/11/2014 07/28/2015 documented in this encounter Discharge Disposition Disposition Code Departure Means Destination Auto Discharge documented in this encounter Progress Notes * Janet Wallace FNP - 08/11/2014 1704 EDT Prob: Vaginal itching and burning S: 48 yr old with vaginitis symptoms x 4 d. Self Rx'd with Diflucan x1 and used Monistat x1 last night. States she knows it is not yeast because the Monistat did not burn and it always does when she has yeast. States she thinks it is same as the time she was Rx'd by Dr. Lubin in April. States was Rx'd with apill and symptoms resolved. Wants re-check on HPV status. No recent antibiotics. Pt. Is diabetic. O: Trich antigen was neg. April 2014 Vulva- red Vagina- red with thin white discharge, no odor Cervix- no lesion Wet smear- + WBC's, neg T and M and clue cells. No odor A: Probably yeast- resolving from 1 Diflucan and 1 dose of Monistat last night but difficult to eval because of Monistat last night P: Will Rx empirically with Terazol 3. Call me on . If no better. Discussed AIDEN I, and HPV again. Advised not a pre-cancer, does not need re-check this soon, but only pap and HPV 1 year from colposcopy. Cloth Edge Singer declined by patient Does not appear satisfied with above advice I spent a total of 20 minutes in face to face time with this patient and 15 minutes of that time was spent in counseling and coordination of care as described in the progress note. documented in this encounter Plan of Treatment Upcoming Encounters Date Type Department Care Team (Late st Contact Info) Description 05/22/2024 10:00 EDT Office Visit [facility] Foot & Ankle Program - [address] [place] [address] Edwige Keller, DPM [address] [place] [address], [place] [address] 07/18/2024 13:00 EDT Procedure visit [facility] Women's Services - [facility] [address] [place], [place] [phone] Jessica Murray NP [address] [facility], [address] 4 [place] [address] documented as of this encounter Procedures Procedure Name Priority Date/Time Associated Diagnosis Comments POCT VAGINAL WET PREP INCLUDES TEJA Routine 08/11/2014 17:21 EDT Vaginitis and vulvovaginitis, unspecified documented in this encounter Results * (ABNORMAL) POCT VAGINAL WET PREP INCLUDES TEJA (08/11/2014 17:21 EDT) Clue Cells, POC Absent Absent POINT OF CARE Trichomonas, POC Absent Absent POINT OF CARE Yeast, POC Absent Absent POINT OF CARE White Blood Cells, POC Present(A) Absent POINT OF CARE Specimen of unknown material (specimen) 08/11/2014 17:21 EDT Janet Wallace JOIST SETTER POINT OF CARE TEST O RDERABLES POINT OF CARE documented in this encounter Visit Diagnoses Diagnosis Vaginitis and vulvovaginitis, unspecified- Primary documented in this encounter Discontinued Medications Medication Sig Discontinue Reason Start Date End Da te Exenatide (BYETTA) 10 mcg/0.04 mL PnIj Inject 10 mcg into the skin 2 times daily. 08/11/2014 insulin glargine (LANTUS SOLOSTAR PEN) 300 unit/3 mL InPn Inject 84 Units into the skin once daily. 08/11/2014 documented as of this encounter Care Teams Electronic News Gathering Camera Person Relationship Specialty Start Date End Date Nanda Read MD PCP - General 05/08/09 05/20/18 documented as of this encounter
--- OUTSIDE RECORDS SUMMARY | 2024-05-15 11:04 | XMS_ITS | Encounter Summary ---
Author Organization [facility] Address [address] [place] [address] Care Team Providers Care Interdisciplinary Professor Name Role Phone Nanad Read MD Primary Care Provider Unavailable Reason for Visit * Reason Comments Follow-up six month visit, hx persistent LSIL Encounter Details Date Type Department Care Team (Late st Contact Info) Description 06/02/2011 13:00 EDT Office Visit [facility] Gynecologic Oncology - [address] [phone] Trevor Julian MD [address] [facility], [address] [place] [address] LGSIL on Pap smear (Primary Dx) Social History Tobacco Use Types [...] - Inhaled Oxygen Concentration - - Weight 103.4 kg (228 lb) 06/02/2011 1321 EDT Height 157.5 cm (5' 2) 06/02/2011 1321 EDT Body Mass Index 41.7 06/02/2011 1321 EDT documented in this encounter Progress Notes * Trevor Julian MD - 06/02/2011 6489 EDT Just a note to keep you updated to your patient, Martha Benoit. As you will recall, Martha Benoit is a 44 y.o. 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 Pap smear on 12/2009demonstrated ASCUS and pap smear from 06/2010 and 11/2010 was negative for any dysplasia or malignancy. She presents today for repeat pap smear. She denies any vaginal clots and she denies any post-coital bleeding. She denies any shortness of breath, chest pain, nausea, vomiting, constipation or diarrhea. She denies any abnormal vaginal odor or discharge. She does c/o some itching of the right vaginal area. She denies any urinary symptoms. Remainder of ROS is negative Current outpatient prescriptions Medication Sig Dispense Refill ??? pregabalin (LYRICA) [...] ??? Codeine Nausea Only Per h /p History Social History ??? Marital Status: Spouse Name: N/A Number of Children: N/A ??? Years of Education: N/A Occupational History ??? Not on file. Social History Main Topics ??? Smoking status: Never Smoker ??? Smokeless tobacco: Not on file ??? Alcohol Use: No ??? Drug Use: Not on file ??? Sexually Active: Not Currently Other Topics Concern ??? Not on file Social History Narrative ??? No narrative on file Review of Systems As dictated above and ROS is otherwise negative. Objective: Ht 157.5 cm (62) Wt 103.42 kg (228 lb) BMI 41.70 kg/m2 LMP 05/02/2011 Physical Exam Abdomen: soft, NT,ND, no rebound or guarding, no hepatosplenomegaly Pelvic: Ext: no exophytic lesion; Vagina: no lesions; pap smear was obtained; Uterus:small; Cervix:small; Adnexa:no masses; silvino-urethral and pre-anal area:normal Ext: no CCE Assessment & Plan: Today, I explained to Ms Benoit that overall I am very pleased with how she is doing. Her last Pap smear in November 2010 was within normal limits. A Pap smear was obtained today. I explained to Dylan her followup Pap smears could either be performed by Dr Ramos or my PA, Kassie Carreon, and she will take this under advisement. As always, I thank you very much for allowing me to participate in the care of your patient. Pleasefeel free to call me if I can be of any further assistance. Sincerely and Respectfully, Trevor Julian MD Director of Gynecologic Oncology [facility] documented in this encounter Plan of Treatment Upcoming Encounters Date Type Department Care Team (Late st Contact Info) Description 05/22/2024 10:00 EDT Office Visit [facility] Foot & Ankle Program - [address] [place], [place] [phone] Edwige Keller DPM [address] [place] [address] 07/18/2024 13:00 EDT Procedure visit [facility] Women's Services - [address] [phone] Jessica Murray NP [address] [facility], [address] [place] [phone] Scheduled Orders Name Type Priority Associated Diagnoses Orde r Schedule PAP TEST- ORDER ONLY Pathology Routine LGSIL on Pap Smear 05/26/2011 documented as of this encounter Visit Diagnoses Diagnosis Papanicolaou smear of cervix with low grade squamous intraepithelial lesion (LGSIL)- Primary documented in this encounter Care Teams Interdisciplinary Professor Relationship Specialty Start Date End Date Nanda Read MD PCP - General 05/08/09 05/20/18 documented as of this encounter
--- OUTSIDE RECORDS SUMMARY | 2024-05-15 11:04 | XMS_ITS | Encounter Summary ---
Author Organization [facility] Address [address] [place] [address] Care Team Providers Care Asphalt Roller Person Name Role Phone Nanda Read MD Primary Care Provider Unavailable Reason for Visit * Reason Onset Date Comments Medication Management 08/26/2015 Encounter Details Date Type Department Care Team (Late st Contact Info) Description 08/26/2015 Telephone [facility] Women's Services [address] [address] Oliva Wasserman, medicaid billing specialist Management Social History Tobacco Use Types Packs/Day [...] encounter Miscellaneous Notes * Telephone Encounter - Sabrina Tinoco RN - 08/28/2015 1602 EST Unable to reach pt with multiple attempts. Will wait for pt to call * Addendum Note - Sabrina Tinoco RN - 08/28/2015 1136 ESTAddended by: ROSALIA TINOCO on: 08/28/2015 11:36 Modules accepted: Orders * Telephone Encounter - Lola Vargas MD - 08/28/2015 0953 EST It would be great to have a yeast culture before treatment. If she can't get that done then we can treat and reculture if symptoms recur. I would recommend diflucan 100 mg daily for 21 days as an alternative. But it can increase the effect of her oxycodone so she would need to be aware of that and decrease the frequency to about 3 a day to start to see how she responds. Otherwise, she can make her own Boric acid capsules. Size 0 capsule from the pharmacist filled 1/2 full with boric acid found in the grocery store. Let me know what she would like to do. thx * Telephone Encounter - Olvia Wasserman RN - 08/26/2015 1325 EST Spoke with Vasile Carreon, recommended I follow-up with Dr. Hubbard, vulvovag specialist. Notifying Dr. Hubbard regarding substitution. * Telephone Encounter - Oliva Wasserman RN - 08/26/2015 1100 EST Patient recently seen by Dr. Hubbard 08/18/15. 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 Compunded script was sent to [facility] pharmacy. States that [facility] pharmacy does not accept medicaid and she cannot afford the $120 out of pocket expense. She is looking for a substitution and would like Vasile Carreon opinion. She verbalizes that she is raw and tired of waiting for one year to find a medication that works. Pharmacy confirmed: [facility]. documented in this encounter Plan of Treatment Upcoming Encounters Date Type Department Care Team (Late st Contact Info) Description 05/22/2024 10:00 EDT Office Visit [facility] Foot & Ankle Program - [address] [place] [address] Edwige Keller, DPM [address] [place] [address] 07/18/2024 13:00 EDT Procedure visit [facility] Women's Services - [place] [address] [place] [address] Jessica Murray NP [address] [facility], [address] [place] [phone] documented as of this encounter Visit Diagnoses Not on filedocumented in this encounter Care Teams Asphalt Roller Person Relationship Specialty Start Date End Date Nanda Read MD PCP - General 05/08/09 05/20/18 documented as of this encounter
--- OUTSIDE RECORDS SUMMARY | 2024-05-15 11:04 | XMS_ITS | Encounter Summary ---
Author Organization [facility] Address [address] [place] [address] Care Team Providers Care Foreign Language Professor Name Role Phone Nanda Read MD Primary Care Provider Unavailable Encounter Details Date Type Department Care Team (Late st Contact Info) Description 03/31/2015 Orders Only [facility] Gynecologic Oncology - [address] [phone] Kassie Carreon PA-C [address] [facility], [address] [place] [address] Social History Tobacco Use Types Packs/Day Years Used Date Smoking Tobacco: Never Alcohol Use Standard Drinks/Week Comments No 0 (1 standard drink = 0.6 oz pur e alcohol) Sex and Gender Information Value Date Recorded Sex Assigned at Female 02/22/2021 15:01 EDT Gender Identity Female 04/30/2020 8:27 EDT Sexual Orientation Straight 02/22/2021 15 :01 EDT documented as of this encounter Ordered Prescriptions Prescription Sig Dispensed Refills Start Date End Da te metroNIDAZOLE (FLAGYL) 500 mg tablet Take 1 Tab by mouth 2 times daily for 7 days 14 Tab 0 03/31/2015 04/07/2015 documented in this encounter Progress Notes * Kassie Carreon PA - 03/31/2015 1252 EDT TC to Martha also to review pap smear results. NIL pap, negative HPV, will repeat in 1 year based onhistory of recurrent HPV. Also reviewed vaginitis exam with yeast forms, and can't rule out BV. Pt has taken a diflucan in the interim. Does affirm vaginal odor and discharge, will treat with flagyl, 500 mg po BID x 7 days, escribed to her pharmacy. documented in this encounter Plan of Treatment Upcoming Encounters Date Type Department Care Team (Late st Contact Info) Description 05/22/2024 10:00 EDT Office Visit [facility] Foot & Ankle Program - [address] [address] Edwige Keller DPM [address] [place] [address] 07/18/2024 13:00 EDT Procedure visit [facility] Women's Services - [facility] [address] [place] [address] Jessica Murray NP [address] [facility], [address] [place] [phone] documented as of this encounter Visit Diagnoses Not on filedocumented in this encounter Care Teams Foreign Language Professor Relationship Specialty Start Date End Date Nanda Read MD PCP - General 05/08/09 05/20/18 documented as of this encounter
--- OUTSIDE RECORDS SUMMARY | 2024-05-15 11:04 | XMS_ITS | Encounter Summary ---
Author Organization [facility] Address [address] [place] [address] Care Team Providers Care Efficiency Manager Name Role Phone Nanda Read MD Primary Care Provider Unavailable Reason for Visit * Reason Comments Vaginitis Follow-up Encounter Details Date Type Department Care Team (Late st Contact Info) Description 06/04/2015 15:30 EDT Office Visit [facility] Women's Services [address] [address] Parminder Quispe MD MSc Cohen, Courtney C, MD Vaginitis (Primary Dx) Discharge Disposition: Auto Discharge Social [...] Sign Reading Time Taken Comments Blood Pressure 130/70 06/04/2015 1553 EDT Pulse - - Temperature - - Respiratory Rate - - Oxygen Saturation - - Inhaled Oxygen Concentration - - Weight - - Height - - Body Mass Index - - documented in this encounter Discharge Diagnoses Diagnosis 616.10 VAGINITIS NOS[ICD-9-CM] documented in this encounter Ordered Prescriptions Prescription Sig Dispensed Refills Start Date End Da te clindamycin (CLEOCIN) 2 % vaginal cream Place 1 Applicator vaginally daily for 7 days 1 Tube 1 06/04/2015 06/11/2015 documented in this encounter Discharge Disposition Disposition Code Departure Means Destination Auto Discharge documented in this encounter Progress Notes * Mariama Patel - 06/05/2015 0924 EDT I discussed and examined the patient with the resident/fellow at the time of the visit. I agree with the findings and the plan of care documented in the resident's/fellow's note Mariama Patel MD * Mary Rodriguez MD - 06/04/2015 1627 EDT MOTOR GENERATOR SET OPERATOR Clinic Follow-up Visit Reason for Visit: Follow-up for recent visit on 05/07, desquamative inflammatory vaginitis S: Martha is a 49 y/o silvino-menopausal female who presents to clinic in follow-up for vaginal irritation. 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 She was told to complete a 14-day course of vaginal clindamycin. She states she took 7 days, but her pharmacy made her wait 6 days due to her insurance before getting the second 7-day course. She just completed the second 7-day course a few days ago. She says that the symptoms are basically gone right now, except that she has felt a few twinges today. She also thinks she had a yeast infection a few days ago because when she wiped after urinating, there were some small round white chunks, so she took Diflucan. O: BP 130/70 mmHg LMP 03/25/2015 (Approximate) Gen: NAD Vulvar: Normal external genitalia. 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 Although she did not get to complete a continuous 14-day course of clindamycin as prescribed, it does appear that her symptoms are better. Discussed that if the symptoms recur, she could try one more 7-day course of the vaginal clindamycin. And if that still did not fully resolve her symptoms, would then recommend a topical steroid cream, such as clobetasol. RTC if symptoms persist/recur. Patient seen and examined with Dr. Amanda Rodriguez MD 06/04/2015 16:52 documented in this encounter Plan of Treatment Upcoming Encounters Date Type Department Care Team (Late st Contact Info) Description 05/22/2024 10:00 EDT Office Visit [facility] Foot & Ankle Program - [facility] [address] [place] [address] Edwige Keller DP [address] [place] [address] 07/18/2024 13:00 EDT Procedure visit [facility] Women's Services - [facility] [address], [place] [phone] Jessica Murray NP 111 [facility], [address] [place] [phone] documented as of this encounter Visit Diagnoses Diagnosis Vaginitis- Primary Vaginitis and vulvovaginitis, unspecified documented in this encounter Care Teams Efficiency Manager Relationship Specialty Start Date End Date Nanda Read MD PCP - General 05/08/09 05/20/18 documented as of this encounter
--- OUTSIDE RECORDS SUMMARY | 2024-05-15 11:04 | XMS_ITS | Encounter Summary ---
Author Organization [facility] Address [address] [place] [address] Care Team Providers Care Pipe Covering Molder Name Role Phone Nanda Read MD Primary Care Provider Unavailable Reason for Visit * Reason Onset Date Comments Other 03/11/2015 PAP TICKLER Encounter Details Date Type Department Care Team (Late st Contact Info) Description 03/11/2015 Telephone [facility] Women's Services - [address] [phone] Kassie Carreon PA-C 111 [facility], [address] [place] [address] Other (PAP TICKLER) Social History Tobacco Use Types Packs/Day Years [...] encounter Miscellaneous Notes * Telephone Encounter - Magaly Aden - 03/11/2015 4071 EDT Martha Benoit arrived for her appointment with BERE Lynn on 03.06.2015 and had been removed from the pap tickler. Magaly Aden MA II documented in this encounter Plan of Treatment Upcoming Encounters Date Type Department Care Team (Late st Contact Info) Description 05/22/2024 10:00 EDT Office Visit [facility] Foot & Ankle Program - [address] [address] Edwige Keller [address] [place] [address] 07/18/2024 13:00 EDT Procedure visit [facility] Women's Services - [facility] [address] [place], [place] [phone] Jessica Murray NP 111 [facility], [address] [place] [address] documented as of this encounter Visit Diagnoses Not on filedocumented in this encounter Care Teams Pipe Covering Molder Relationship Specialty Start Date End Date Nanda Read MD PCP - General 05/08/09 05/20/18 documented as of this encounter
--- OUTSIDE RECORDS SUMMARY | 2024-05-15 11:04 | XMS_ITS | Encounter Summary ---
Author Organization [facility] Address [address] [place] [address] Care Team Providers Care Landscape Management Technician Name Role Phone Nanda Read MD Primary Care Provider Unavailable Reason for Visit * Reason Onset Date Comments Labs Only 03/15/2016 Encounter Details Date Type Department Care Team (Late st Contact Info) Description 03/15/2016 Telephone [facility] Women's Services [address] [address] Latosha Stoddard, RN Labs Only Social History Tobacco Use Types Packs/Day [...] Telephone Encounter - Kassie Carreon PA - 03/15/2016 1037 EDT TC returned to cytopathology, this was a cervical/endocervical pap smear. * Telephone Encounter - Latosha Stoddard, BRENDAN - 03/15/2016 0833 EDT Received TC from the lab asking to clarify the source the pap was obtained from during Martha's visit. Per order source was other and was not clarified in the comment section. Please advise, as theywill not run without knowing source. documented in this encounter Plan of Treatment Upcoming Encounters Date Type Department Care Team (Late st Contact Info) Description 05/22/2024 10:00 EDT Office Visit [facility] Foot & Ankle Program - [address] [address] [address] [address] 07/18/2024 13:00 EDT Procedure visit [facility] Women's Services - [facility] [address] [place] [address] Jessica Murray NP 111 [facility], [facility], [address] [place] [address] documented as of this encounter Visit Diagnoses Not on filedocumented in this encounter Care Teams Landscape Management Technician Relationship Specialty Start Date End Date Nanda Read MD PCP - General 05/08/09 05/20/18 documented as of this encounter
--- OUTSIDE RECORDS SUMMARY | 2024-05-15 11:04 | XMS_ITS | Encounter Summary ---
Author Organization [facility] Address [address] [place] [address] Care Team Providers Care Field Training Agent Name Role Phone Nanda Read MD Primary Care Provider Unavailable Reason for Visit * Reason Onset Date Comments Other 08/24/2015 compound medicat ion Encounter Details Date Type Department Care Team (Late st Contact Info) Description 08/24/2015 Telephone [facility] Pelvic Medicine and Reconstructive Surgery - Medical Office Building [address] [address] Thais Hubbard MD MPH 2 [facility] Medical Office [facility], [address] [address] Other (compound medication) Social History Tobacco Use Types Packs/Day Years [...] once weekly. 12 Each 3 08/24/2015 05/23/2019 Miscellaneous Medication - See Admin Instructions Boric Acid, 600 mg one supp. nightly x 14 nights. 14 Each 0 08/24/2015 05/23/2019 documented in this encounter Miscellaneous Notes * Telephone Encounter - Kitty Cornell RN - 08/26/2015 1053 EST Martha calling back today requesting an alternative agent as her insurance does not cover Boric Acidsuppositories. Will check with Dr. Hubbard to see if she has an alternative agent she would like to prescribe * Telephone Encounter - Kitty Cornell RN - 08/24/2015 1214 EST Martha calling to inquire why she has not heard from anyone in relation to Boric Acid suppository prescription from [facility]. Office notes reviewed. [facility] notified. documented in this encounter Plan of Treatment Upcoming Encounters Date Type Department Care Team (Late st Contact Info) Description 05/22/2024 10:00 EDT Office Visit [facility] Foot & Ankle Program - [address] [address] [address] [address] 07/18/2024 13:00 EDT Procedure visit [facility] Women's Services - [facility] [address] [place], [place] [phone] Jessica Murray NP 111 [facility], [address] [place] [address] documented as of this encounter Visit Diagnoses Not on filedocumented in this encounter Care Teams Field Training Agent Relationship Specialty Start Date End Date Nanda Read MD PCP - General 05/08/09 05/20/18 documented as of this encounter
--- OUTSIDE RECORDS SUMMARY | 2024-05-15 11:04 | XMS_ITS | Encounter Summary ---
Author Organization [facility] Address [address] [place] [address] Care Team Providers Care High Density Talc Coater Operator Name Role Phone Nanda Read MD Primary Care Provider Unavailable Reason for Visit * Reason Comments Gynecologic Exam Encounter Details Date Type Department Care Team (Late st Contact Info) Description 03/11/2016 14:00 EDT Office Visit [facility] Women's Services - [address] [phone] Kassie Carreon PA-C 111 [facility], [address] [place] [address] Cervical 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 (Primary Dx); Vaginal discharge; Encounter for gynecological examination with abnormal finding [Z01.411] Social History Tobacco Use Types Packs/Day Years [...] Sign Reading Time Taken Comments Blood Pressure 112/64 03/11/2016 1355 EDT Pulse - - Temperature - - Respiratory Rate - - Oxygen Saturation - - Inhaled Oxygen Concentration - - Weight 97.5 kg (215 lb) 03/11/2016 1355 EDT Height 160 cm (5' 2.99) 03/11/2016 1355 EDT Body Mass Index 38.1 03/11/2016 1355 EDT documented in this encounter Functional Status [...] times daily for 7 days. 14 Tab 0 03/11/2016 03/18/2016 documented in this encounter Progress Notes * Kassie Carreon PA - 03/11/2016 1408 EDT Subjective: Patient ID: Martha Benoit is an 50 y.o. female. Chief Complaint Patient presents with ??? Gynecologic Exam HPI Chief complaint: HPI: Martha Benoit is a 50 y.o. female who presents today for a yearly exam, last seen one year ago. HIstory of recurrent cervical dysplasia: 08/15/2009, Martha [...] pap/HPV in one year. This ws done last year, and returned as NIL/negative HPV. Post menopausal, no vaginal bleeding Using NA for contraception. Last pap smear: as above History of abnormal pap smears. As above History of STDs: HPV Vaginal complaints:has had some recurrent yeast over the past year. Complains of discharge/irritation today. When asked, does affirm odor. Other complaints: none Other concerns: none Health Maintenance Mammogram: does not want one, breast exam today Colonoscopy: utd Cholesterol screening: NA DEXA: NA Immunizations: Tetanus: unsure Gardasil NA Patient Active Problem List Diagnosis ??? Mild dysplasia of cervix (AIDEN I) ??? Dysplasia of vagina ??? Morbid obesity ??? Vitamin D deficiency ??? Diabetes mellitus Past Medical History Diagnosis Date ??? Unspecified cerebral artery occlusion with cerebral infarction Past Surgical History Procedure Laterality Date ??? Leep 07/15/2009 ??? Cervix lesion destruction 07/15/2009 ??? Tubal ligation ??? Gastric bypass surgery 01/04/16 Family History Problem Relation Age of Onset [...] to Visit Medication Sig Dispense Refill ??? ergocalciferol (VITAMIN D) 50,000 unit capsule Take 50,000 Units by mouth twice a week. ??? folic acid (FOLVITE) 1 mg tablet Take 1 mg by mouth daily. ??? furosemide (LASIX) 40 mg tablet Take 40 mg by mouth daily. ??? glipiZIDE (GLUCOTROL) 10 mg tablet Take 10 mg by mouth 2 times daily. ??? hydrocortisone 1 % cream Apply topically to affected area 2 times daily as needed for Other (vaginal irritation) 1 Tube 1 ??? insulin lispro (HUMALOG) 100 unit/mL injection Inject 20 Units into the skin 3 times daily before meals. ??? metformin (GLUCOPHAGE) 500 mg tablet Take 500 mg by mouth 3 times daily before meals. ??? Miscellaneous Medication - See Admin Instructions Boric Acid, 600 mg one supp. nightly x 14 nights. 14 Each 0 ??? Miscellaneous Medication - See Admin Instructions Boric Acid, 600 mg one suppository vaginally at bedtime once weekly. 12 Each 3 ??? oxycodone-acetaminophen (PERCOCET) 5-325 mg per tablet Take 1 Tab by mouth every 4 hours as needed for Pain. Takes 5 tabs daily ??? POTASSIUM CHLORIDE ORAL Take 10 mEq by mouth 2 times daily. No current facility-administered medications on file prior to visit. Allergies Allergen Reactions ??? Codeine Nausea Only Per h /p Review of Systems - See HPI Objective: BP 112/64 mmHg Ht 160 cm (62.99) Wt 97.523 kg (215 lb) BMI 38.09 kg/m2 Physical Exam Constitutional: She is oriented [...] normal. Judgment and thought contentnormal. Assessment: Yearly tipple supervisor exam History of cervical dysplasia/HPV Plan: There are no diagnoses linked to this encounter. 1) pap with HPV sent, if NIL/negative repeat in 3 years, if either abnormal, refer back for colposcopy 2) encouraged mammogram/self breast awareness. 3) BV, treat with flagyl, 500 mg po BID x 7 days. escribed to pharmacy. RTO for persistent symptoms. BERE Slater documented in this encounter Plan of Treatment Upcoming Encounters Date Type Department Care Team (Late st Contact Info) Description 05/22/2024 10:00 EDT Office Visit [facility] Foot & Ankle Program - [address] [place] [address] Edwige Keller DPM [address] [place] [phone] 07/18/2024 13:00 EDT Procedure visit [facility] Women's Services - [facility] [address] [place], [place] [phone] Jessica Murray NP 111 [facility], [address] [place] [address] Scheduled Orders Name Type Priority Associated Diagnoses Orde r Schedule PAP TEST- ORDER ONLY Pathology Routine Cervical 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 Ordered: 03/11/2016 documented as of this encounter Procedures Procedure Name Priority Date/Time Associated Diagnosis Comments POCT VAGINAL WET PREP INCLUDES TEJA Routine 03/11/2016 14:27 EDT Vaginal discharge documented in this encounter Results * (ABNORMAL) POCT VAGINAL WET PREP INCLUDES TEJA (03/11/2016 14:27 EDT) Clue Cells, POC Present(A) . POINT OF CARE Trichomonas, POC Absent . POINT OF CARE Yeast, POC Absent . POINT OF CARE White Blood Cells, POC Present(A) . POINT OF CARE Specimen of unknown material (specimen) 03/11/2016 14:27 EDT Kassie Carreon PA-C POINT OF CARE TEST ORDERABLES POINT OF CARE documented in this encounter Visit Diagnoses Diagnosis 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 Medication Sig Dispensed Refills Start Date End Date gabapentin (NEURONTIN) 300 mg capsule Take 1 Capsule by mouth 2 times daily. baclofen (LIORESAL) 10 mg tablet Take 1 Tablet by mouth 4 times daily. lidocaine 5 % (LIDODERM) 5 % patch Place 1 Patch onto the skin daily. omeprazole (PRILOSEC) 20 mg capsule Take 1 Capsule by mouth daily. added in this encounter Care Teams High Density Talc Coater Operator Relationship Specialty Start Date End Date Nanda Read MD PCP - General 05/08/09 05/20/18 documented as of this encounter
--- OUTSIDE RECORDS SUMMARY | 2024-05-15 11:04 | XMS_ITS | Encounter Summary ---
Author Organization [facility] Address [address] [place] [address] Care Team Providers Care Delivery Assistant Name Role Phone Nanda Read MD Primary Care Provider Unavailable Reason for Visit * Reason Onset Date Comments Vaginitis 08/18/2014 Encounter Details Date Type Department Care Team (Late st Contact Info) Description 08/18/2014 Telephone [facility] Women's Services - [facility] [address] [place] [address] Oliva Wasserman RN Vaginitis Social History Tobacco Use Types Packs/Day [...] Refills Start Date End Da te metroNIDAZOLE (METROGEL) 0.75 % vaginal gel Place 1 Applicator vaginally daily for 5 days Please dispense 1 box of 5 applicators. Thank you.. 1 Tube 0 08/19/2014 08/24/2014 documented in this encounter Miscellaneous Notes * Telephone Encounter - Janet Wallace FNP - 08/19/2014 1130 EDT Still burning and itching. Really wants previous med used before my visit. Thinks it was a pill from Dr. Lubin April 2014. States that med resolved her symptoms. Lives in [place] and cannot come back for appt. Any time soon.O: No oral med documented in her chart from April. Last Rx was BERE Benton for Metrogel. P: See orders Will Rx Metrogel x 5d. Informed, if symptoms persist come in >rd after last dose of gel. No moreRx's without re-check Pt. informed of results and agrees to plan. * Telephone Encounter - Janet Wallace FNP - 08/19/2014 1126 EDT Still burning. States meds have not helped at all. Really wants med that was given before. States that med. Relieved her irritation. Thinks it was a pill given by Dr. Lubin in April 2014. * Telephone Encounter - Oliva Wasserman RN - 08/18/2014 1054 EDT Martha c/o itching and burning that has lasted for several weeks. She recently saw Janet Wallace NP on 08/11/14. She states that the prescribed medications from last visit (Diflucan and Monistat) havenot helped her. Janet prescribed Terazol, which the patient states is still not helping. We offered her an appointment with a vulvovaginal specialist, which she refused due to long commute. documented in this encounter Plan of Treatment Upcoming Encounters Date Type Department Care Team (Late st Contact Info) Description 05/22/2024 10:00 EDT Office Visit [facility] Foot & Ankle Program - [place] [address] [place] [address] Edwige Keller DPM [address] [place] [phone] 07/18/2024 13:00 EDT Procedure visit [facility] Women's Services - [address] [address] Jessica Murray NP 111 [facility], [address] [place] [address] documented as of this encounter Visit Diagnoses Not on filedocumented in this encounter Discontinued Medications Medication Sig Discontinue Reason Start Date End Da te metronidazole (METROGEL) 0.75 % vaginal gel Place 1 Applicator vaginally daily for 5 days. Please dispense 1 box of 5 applicators. Thank you. Reorder 11/29/2010 08/19/2014 documented as of this encounter Care Teams Delivery Assistant Relationship Specialty Start Date End Date Nanda Read MD PCP - General 05/08/09 05/20/18 documented as of this encounter
--- OUTSIDE RECORDS SUMMARY | 2024-05-15 11:04 | XMS_ITS | Encounter Summary ---
Author Organization [facility] Address [address] [place] [address] Care Team Providers Care Tile Burner Name Role Phone Nanda Read MD Primary Care Provider Unavailable Reason for Visit * Reason Comments Vaginal Discharge Itching and Burning Encounter Details Date Type Department Care Team (Late st Contact Info) Description 05/07/2015 13:00 EDT Office Visit [facility] Women's Services [address] [address] Unknown, Provider, Mary Wright MD Vaginal itching (Primary Dx) Discharge Disposition: Auto Discharge Social [...] Sign Reading Time Taken Comments Blood Pressure 115/80 05/07/2015 1317 EDT Pulse - - Temperature - - Respiratory Rate - - Oxygen Saturation - - Inhaled Oxygen Concentration - - Weight 114.3 kg (252 lb) 05/07/2015 1317 EDT Height 157.5 cm (5' 2) 05/07/2015 1317 EDT Body Mass Index 46.09 05/07/2015 1317 EDT documented in this encounter Discharge Diagnoses Diagnosis 698.1 PRURITUS OF GENITALIA[ICD-9-CM] documented in this encounter Ordered Prescriptions Prescription Sig Dispensed Refills Start Date End Da te hydrocortisone 1 % cream Apply topically to affected area 2 times daily as needed for Other (vaginal irritation) 1 Tube 1 05/07/2015 12/19/2019 clindamycin (CLEOCIN) 2 % vaginal cream Place 1 Applicator vaginally at bedtime for 14 days 1 Tube 1 05/07/2015 05/21/2015 documented in this encounter Discharge Disposition Disposition Code Departure Means Destination Auto Discharge documented in this encounter Progress Notes * Parminder Quispe MD - 05/07/2015 1703 EDT Attestation statement: I discussed the patient with the resident/fellow at the time of the visit. Iagree with the findings and the plan of care documented in the resident's/fellow's note. Parminder Quispe MD * Mary Rodriguez MD - 05/07/[address] [facility] Visit Reason for Visit: Vaginal itching and burning S: Martha is a 49 y/o silvino-menopausal female who presents to clinic for persistent vaginal itching and burning. She was last seen in February 2015 for her yearly exam with Kassie Carreon, at which time she was also reporting some itching. A vaginitis exam was sent at that time and returned with yeast forms, no trichomonas, and unable to rule out bacterial vaginosis. Before these results were relayedto the patient, she had already taken Diflucan and gotten some relief. She was also called in a 7-day course of flagyl, which she completed. She states she was feeling better for a few weeks, but then the itching and burning returned and has persisted since. The itching and burning are constant andare primarily located just outside and inside the opening of her vagina. She has tried fluconazole x 3, miconazole x 7 days, and most recently, teraconazole (last took 3 days ago). She has not noticed any relief with any of these. She denies any vaginal bleeding (except she does still get periods every 2-3 months). Denies any vaginal odor. Hasn't noticed much of a vaginal discharge, except maybe a small amount of a white/yellowish discharge. Not currently sexually active. She does sometimes wear a pad because or urinary leakage, and has recently switched to just a panty liner. No change in det ergents, but has recently started using a new body wash. 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 Pap smear on 12/2009 demonstrated ASCUS and pap smear from 06/2010 and 11/2010, 05/2011, 11/2011 and [id number] were negative for any dysplasia or malignancy, however her pap smear in 05/2012 was positive for HPV Repeat pap in 01/2013 was NIL and negative for HPV. Repeat pap one year later neg, except + HPV. She then underwent a colposcopy on 04/08/14, boipsy at that time showed AIDEN 1, and recommendation made to follow up with pap/HPV in one year. Most recent pap 02/2015 neg with neg HPV O: BP 115/80 mmHg Ht 157.5 cm (62) Wt 114.306 kg (252 lb) BMI 46.08 kg/m2 LMP 03/25/2015 (Approximate) Gen: NAD, obese External genitalia: No suspicious lesions, normal-appearing vulva Speculum: Very erythematous mucosa just inside introitus, petechiae noted at posterior vagina, no other lesions, small amount of thin/creamy white discharge Wet Prep: Abundant white blood cells, no clue cells, no yeast, no trichomonas A/P: Martha is a 49 y/o lady who presents with several week history of vaginal pruritus and irritation. Has tried empiric treatment for yeast infection with no relief. No evidence of fungal infection on wet prep or exam. Symptoms and exam suggestive of desquamative inflammatory vaginitis. No suspicious lesions suggestive of dysplasia warranting biopsy. There could also be a component of atrophic vaginitis as patient is perimenopausal and/or a contact/irritant vaginitis. --will treat with vaginal clindamycin x 14 days and plan to see patient back in 3-4 weeks. May needrepeat course if not improved --patient also instructed that she can use topical hydrocortisone cream as needed for irritation Discussed with Dr. Jose Enrique Rodriguez MD 05/07/2015 16:43 documented in this encounter Plan of Treatment Upcoming Encounters Date Type Department Care Team (Late st Contact Info) Description 05/22/2024 10:00 EDT Office Visit [facility] Foot & Ankle Program - [facility] [address] [place] [address] Edwige Keller DP [address] [place] [address] 07/18/2024 13:00 EDT Procedure visit [facility] Women's Services - [facility] [address] [place] [address] Jessica Murray NP 111 [facility], [facility], [address] [place] [address] documented as of this encounter Procedures Procedure Name Priority Date/Time Associated Diagnosis Comments POCT VAGINAL WET PREP INCLUDES TEJA Routine 05/07/2015 16:37 EDT Vaginal itching documented in this encounter Results * (ABNORMAL) POCT VAGINAL WET PREP INCLUDES TEJA (05/07/2015 16:37 EDT) Clue Cells, POC Absent Absent Trichomonas, POC Absent Absent Yeast, POC Absent Absent White Blood Cells, POC Present(A) Absent Specimen of unknown material (specimen) 05/07/2015 16:37 EDT Parminder Quispe MD MSc POINT OF [place] RE TEST ORDERABLES documented in this encounter Visit Diagnoses Diagnosis Vaginal itching- Primary Pruritus of genital organs documented in this encounter Care Teams Tile Burner Relationship Specialty Start Date End Date Nanda Read MD PCP - General 05/08/09 05/20/18 documented as of this encounter
--- OUTSIDE RECORDS SUMMARY | 2024-05-15 11:04 | XMS_ITS | Encounter Summary ---
Author Organization [facility] Address [address] [place] [address] Care Team Providers Care Patient Safety Attendant Name Role Phone Nanda Read MD Primary Care Provider Unavailable Encounter Details Date Type Department Care Team (Late st Contact Info) Description 09/24/2014 Results Only [facility] Laboratory Services - [facility] [address] [place] [address] [phone] Angelica Montes MD [address] [place] [address] [phone] Social History Tobacco Use Types Packs/Day Years [...] - [facility] - [address] [place] [address] Edwige Keller DPM [address] [place] [address] 07/18/2024 13:00 EDT Procedure visit [facility] Women's Services - [facility] [address] [place] [address] Jessica Murray, POLO 111 [facility], [address] [place] [address] documented as of this encounter Procedures Procedure Name Priority Date/Time Associated Diagnosis Comments SURGICAL PATHOLOGY Routine 09/23/2014 9:29 EST documented in this encounter Results * SURGICAL PATHOLOGY (09/23/2014 9:29 EST) Pathology Report: SURGICAL PATHOLOGY REPORT Reports generated via electronic interface contain original data; however they are lacking the format of the original report. Caution should be taken when reading/interpret ing unformatted reports. Name: ? JO JONES ? Accession #: ? [id number] ? : ? 1965 (Age: 48) ??F ? Collect Date: ? 09/23/2014 ? Location: ? [facility] ? Receive Date: ? 09/24/2014 ? Provider: ANGELICA MONTES MD Copy to: ? Final Pathologic Diagnosis: A. ??COLON, ASCENDING, POLYP, BIOPSY: - Tubular adenoma. B. ??COLON, DESCENDING, POLYP, BIOPSY: - Tubular adenoma. C. ??COLON, SIGMOID, POLYP, BIOPSY: - Traditional serrated adenoma. D. COLON, RECTUM, POLYP, BIOPSY - ??Traditional serrated adenoma. Document reviewed and electronically signed by: MORE BECERRA MD Report ??Date: 09/26/2014 14:45 By the signature above, the attending physician certifies that he/she has personally conducted a gross and/or microscopic examination of the described specimens and rendered or confirmed the above diagnosis. Specimen(s) Received: A. ??Ascending polyp B. ??Descending polyp C. ??Sigmoid polyp D. ??Rectal polyp Clinical History: Screening c/s; polyps Gross Description: A. ?Received in formalin labelled with proper patient identification (initials P, J) and ascending colon polyp is a single pink-russell tissue fragment (0.3 x 0.3 x 0.2 cm). Submitted intact in A1. B. ?Received in formalin labelled with proper patient identification (initials P, J) and descending colon polyp are two pink-russell tissues (0.2 x 0.2 x 0.2 cm and 0.3 x 0.2 x 0.2 cm). Entirely submitted in B1. C. ?Received in formalin labelled with proper patient identification (initials P, J) and sigmoid polyp is a single pink-russell tissue fragment (0.3 x 0.2 x 0.2 cm). Submitted intact in C1. D. ?Received in formalin labelled with proper patient identification (initials P, J) and rectal polyp are two pink-russell tissues (0.1 x 0.1 x 0.1 cm and 0.3 x 0.2 x 0.1 cm). Entirely submitted in D1. Zahra Johnson 09/24/2014 01:[address] [facility] 09/23/2014 9:29 EST 09/24/2014 9:29 EST Angelica Montes MD PATHOLOGY ORDERABLES [facility] [address] [place] [address] documented in this encounter Visit Diagnoses Not on filedocumented in this encounter Care Teams Patient Safety Attendant Relationship Specialty Start Date End Date Nanda Read MD PCP - General 05/08/09 05/20/18 documented as of this encounter
--- OUTSIDE RECORDS SUMMARY | 2024-05-15 11:04 | XMS_ITS | Encounter Summary ---
Author Organization [facility] Address [address] [place] [address] Care Team Providers Care General Maintenance Mechanic Name Role Phone Nanda Read MD Primary Care Provider Unavailable Patrick Clement MD Primary Care Provider [phone] Ruth Munoz APRN Primary Care Provider + Encounter Details Date Type Department Care Team (Late st Contact Info) Description 04/08/2014 Orders Only [facility] Women's Services - [address] [address] Katy Lubin MD 111 [facility], [address] [place] [address] Cervical 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; Vaginal discharge Social History Tobacco Use Types Packs/Day Years [...] 13:01 EDT documented as of this encounter Plan of Treatment Upcoming Encounters Date Type Department Care Team (Late st Contact Info) Description 05/22/2024 10:00 EDT Office Visit [facility] Foot & Ankle Program - [facility] [address] [place] [address] Edwige Keller DPM [address] [facility] [place] [address] 07/18/2024 13:00 EDT Procedure visit [facility] Women's Services - [facility] [address], [place] [id number] Jessica Murray NP 111 [facility], [address] [place] [address] documented as of this encounter Procedures Procedure Name Priority Date/Time Associated Diagnosis Comments ZZVAGINITIS EXAM Routine 04/08/2014 12:1 8 EDT Vaginal discharge documented in this encounter Results * VAGINITIS EXAM (04/08/2014 12:18 EDT) Specimen Description Vagina [facility] Gram Smear Result No yeast seen. [facility] Gram Smear Result Unable to rule out the presence of bacterial vaginosis. [facility] Result No Trichomonas antigen detected. [facility] Report Status 04/08/2014 Final [facility] Specimen of unknown material (specimen) VAGINAL STRUCTURE / Unknown 04/08/2014 12:18 EDT 04/08/2014 16:28 EDT Katy Lubin MD MICROBIOLOGY - GEN ERAL ORDERABLES [facility] [address] [place] [address] documented in this encounter Visit Diagnoses Diagnosis Cervical 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 Vaginal discharge Leukorrhea, not specified as infective documented in this encounter Care Teams General Maintenance Mechanic Relationship Specialty Start Date End Date Nanda Read MD PCP - General 05/08/09 05/20/18 Patrick Clement MD PCP - General 05/21/18 04/25/19 Ruth Munoz, [employer] [address] [place] [phone] PCP - General 04/26/19 06/19/23 documented as of this encounter
--- OUTSIDE RECORDS SUMMARY | 2024-05-15 11:04 | XMS_ITS | Encounter Summary ---
Author Organization [facility] Address [address] [place] [address] Care Team Providers Care Manager Clinical Name Role Phone Nanda Read MD Primary Care Provider Unavailable Reason for Referral * INSPECTOR ADVANCED COMPOSITE (Routine) - Closed Specialty Diagnoses / Procedures Referred By Contac t Referred To Contact Diagnoses Chronic vaginitis Procedures ADJUNCT BUSINESS INSTRUCTOR US PELVIS TRANSVAGINAL Thais Hubbard MD MPH [address] [facility] Medical Office [facility], [address] [address] Referral ID Status Reason Start Date Expiration Date Visits Re quested Visits Authorized [id number] Closed 08/18/2015 1 1 Reason for Visit * Reason Comments Vaginal Discharge Encounter Details Date Type Department Care Team (Late st Contact Info) Description 08/18/2015 13:30 EDT Office Visit [facility] ADJUNCT BUSINESS INSTRUCTOR Pelvic Medicine and Reconstructive Surgery - Medical Office Building [address] [address] Thais Hubbard MD MPH 2 [facility] Medical Office [facility], [address] [address] Chronic vaginitis (Primary Dx) Social History Tobacco Use Types [...] - Inhaled Oxygen Concentration - - Weight 111.1 kg (245 lb) 08/18/2015 1325 EDT Height 160 cm (5' 2.99) 08/18/2015 1325 EDT Body Mass Index 43.41 08/18/2015 1325 EDT documented in this encounter Progress Notes * Thais Hubbard MD - 08/18/2015 1409 EDT 49 yo with one yr hx of vaginal irritation Described as burning- unclear as to cause or start. Waxes and wanes. She wsa treated for DIV and for yeast. At her last visit she was diagnosed with possible atypical yeast and given 7 days of terazol. She says this helped somewhat but not completely. When symptoms flare she has tired a vinegar douche which helps very little. She does relate having a cottage cheese like discharge but also was told she did not have a yeast infection. No bowel issues. She offers that she is wearing a pad more often this past year because of bleeding/spotting. She was surprised by a period as heavy as when she was in her 20s. She is not sexually active. She has had abnormal Paps required colposcopy. She is diabetic but tries to be under control. On exam, she is obese. She has multiple small boils on vulva skin. She has a 2+ rectocoele, but theburning she notes is in her vagina. The vaginal wall is erythematous with small patches of increase erythema. However no discreet lesions per say are noted. The is some vaginal fluid, but this appears normal. Cervix appears to be post LEEP but is not otherwise abnormal. Wet pre+++ for atypical yeast. No parabasal cells, no clue cells. Vaginitis exam sent. Impression: chronic atypical yeast. Will give Boric acid suppository-- 14 day, one per day then once per week. Compunded script called to [facility] pharmacy Possible neurogenic component. Will consider lidocaine. I am somewhat concerned about recent increased irregular bleeding given obesity and previous hx ofHPV disease. Will check ADJUNCT BUSINESS INSTRUCTOR ultrasound RTC 4-6 weeks after ultrasound. I spent a total of 40 minutes in face to face time with this patient today and 20 minutes of that time was spent counseling the patient on the risks and treatment options for vaginits. documented in this encounter Plan of Treatment Upcoming Encounters Date Type Department Care Team (Late st Contact Info) Description 05/22/2024 10:00 EDT Office Visit [facility] Foot & Ankle Program - [address] [address] Edwige Keller DPM [address] [place] [address] 07/18/2024 13:00 EDT Procedure visit [facility] Women's Services - [facility] [address] [place], [place] [phone] Jessica uMrray NP 111 [facility], [facility], [address] [place] [address] documented as of this encounter Procedures Procedure Name Priority Date/Time Associated Diagnosis Comments ADJUNCT BUSINESS INSTRUCTOR US PELVIS TRANSVAGINAL Routine 09/24/2015 11:41 EST Chronic vaginitis ZZVAGINITIS EXAM Routine 08/18/2015 14:0 7 EDT Chronic vaginitis documented in this encounter Results * ADJUNCT BUSINESS INSTRUCTOR US PELVIS TRANSVAGINAL (09/24/2015 11:41 EST) Anatomical Region Laterality Modality Other 09/24/2015 11:4 1 EST 09/24/2015 13:35 EST Narrative 09/24/2015 13:35 EST Indication subacute and chronic vaginitis. Uterus ======= Uterus: ?Retroflexed Uterus position: ?? retroverted Uterine malformations: none Myometrium: ?Appears normal Endometrium: ?? Clearly visualized and no apparent abnormalities Cervix details: ?Normal appearance Uterus long ?6.7 cm Uterus ap ??3.6 cm Uterus tr ??4.5 cm Uterus Vol. ?56.1 cm? Endometrial thickness, total ?? 7.2 mm Right Ovary Rt ovary: ??Visualized, normal appearance Rt ovary D1 ?2.4 cm Rt ovary D2 ?1.8 cm Rt ovary D3 ?1.2 cm Rt ovary mean ??1.8 cm Rt ovary Vol. ??2.7 cm? Left Ovary Lt ovary: ??Visualized, normal appearance Lt ovary D1 ?1.8 cm Lt ovary D2 ?2.3 cm Lt ovary D3 ?1.0 cm Lt ovary mean ??1.7 cm Lt ovary Vol. ??2.2 cm? [place] Appears normal. No free fluid visualized. Impression Transvaginal Pelvic [id number] normal ultrasound. Follow-up Follow-up as clinically indicated with Dr Hubbard. Comment ========= Ultrasound findings discussed w/patient. Procedure Note Thais Ruvalcaba MD - 09/24/2015 Indication subacute and chronic vaginitis. Uterus ======= Uterus: Retroflexed Uterus position: retroverted Uterine malformations: none Myometrium: Appears normal Endometrium: Clearly visualized and no apparent abnormalities Cervix details: Normal appearance Uterus long 6.7 cm Uterus ap 3.6 cm Uterus tr 4.5 cm Uterus Vol. 56.1 cm? Endometrial thickness, total 7.2 mm Right Ovary Rt ovary: Visualized, normal appearance Rt ovary D1 2.4 cm Rt ovary D2 1.8 cm Rt ovary D3 1.2 cm Rt ovary mean 1.8 cm Rt ovary Vol. 2.7 cm? Left Ovary Lt ovary: Visualized, normal appearance Lt ovary D1 1.8 cm Lt ovary D2 2.3 cm Lt ovary D3 1.0 cm Lt ovary mean 1.7 cm Lt ovary Vol. 2.2 cm? [place] Appears normal. No free fluid visualized. Impression Transvaginal Pelvic [id number] normal ultrasound. Follow-up Follow-up as clinically indicated with Dr Hubbard. Comment ========= Ultrasound findings discussed w/patient. Thais Hubbard MD MPH IMG US ADJUNCT BUSINESS INSTRUCTOR ORD ERABLES * VAGINITIS EXAM (08/18/2015 14:07 EDT) Gram Smear Result Mod Yeast forms 08/18/2015 23:38 EDT [facility] Result No Trichomonas antigen detected. 08/18/2015 22:48 EDT [facility] Gram Smear Result Smear NOT consistent with bacterial vaginosis. 08/18/2015 23:38 EDT [facility] Specimen of unknown material (specimen) VAGINAL STRUCTURE / Unknown 08/18/2015 14:07 EDT 08/18/2015 19:13 EDT Thais Hubbard MD MPH MICROBIOLOGY - GENERAL ORDERABLES [facility] [address] [place] [address] documented in this encounter Visit Diagnoses Diagnosis Chronic vaginitis- Primary Vaginitis and vulvovaginitis, unspecified documented in this encounter Care Teams Manager Clinical Relationship Specialty Start Date End Date Nanda Read MD PCP - General 05/08/09 05/20/18 documented as of this encounter
--- OUTSIDE RECORDS SUMMARY | 2024-05-15 11:04 | XMS_ITS | Encounter Summary ---
Author Organization [facility] Address [address] [place] [address] Care Team Providers Care Components Engineer Name Role Phone Nanda Read MD Primary Care Provider Unavailable Reason for Visit * Reason Onset Date Comments Results 03/25/2014 Encounter Details Date Type Department Care Team (Late st Contact Info) Description 03/25/2014 Telephone [facility] Pelvic Medicine and Reconstructive Surgery - Medical Office [facility] [address] [place] [address] Kassie Carreon PA-C 111 [facility], [address] [place] [address] Results Social History Tobacco Use [...] Telephone Encounter - Kassie Carreon PA - 03/25/2014 1142 EDT Message left on answering machine, recent pap smear NIL, but positive for HPV (last year, pap was NIL, negative HPV). Discussed with colposcopy clinic, recommend that patient have colposcopy. Messageleft for her to call back to discuss results and schedule colposcopy in general colpo clinic. documented in this encounter Plan of Treatment Upcoming Encounters Date Type Department Care Team (Late st Contact Info) Description 05/22/2024 10:00 EDT Office Visit [facility] Foot & Ankle Program - [address] [address] Edwige Keller [address] [address] 07/18/2024 13:00 EDT Procedure visit [facility] Women's Services - [facility] [address] [place], [place] [id number] Jessica Murray NP 111 [facility], [facility], [address] [place] [phone] documented as of this encounter Visit Diagnoses Not on filedocumented in this encounter Care Teams Components Engineer Relationship Specialty Start Date End Date Nanda Read MD PCP - General 05/08/09 05/20/18 documented as of this encounter
--- OUTSIDE RECORDS SUMMARY | 2024-05-15 11:04 | XMS_ITS | Encounter Summary ---
Author Organization [facility] Address [address] [place] [address] Care Team Providers Care Foundry Worker Apprentice Name Role Phone Nanda Read MD Primary Care Provider Unavailable Reason for Visit * Reason Onset Date Comments Results 03/27/2014 Encounter Details Date Type Department Care Team (Late st Contact Info) Description 03/27/2014 Telephone [facility] Gynecologic Oncology - [address] [phone] Kassie Carreon PA-C 111 [facility], [address] [place] [address] Results Social History Tobacco Use [...] Telephone Encounter - Kassie Carreon PA - 03/27/2014 0850 EDT Spoke with Martha, discussed that her pap was NIL, but HPV is again positive (negative last year). She is scheduled for a colposcopy with Dr. Lubin later this month. documented in this encounter Plan of Treatment Upcoming Encounters Date Type Department Care Team (Late st Contact Info) Description 05/22/2024 10:00 EDT Office Visit [facility] Foot & Ankle Program - [address] [address] Edwige Keller, DP [address] [place] [address] 07/18/2024 13:00 EDT Procedure visit [facility] Women's Services - [facility] [address] [place], [place] [phone] Jessica Murray NP 111 [facility], [address] [place] [phone] documented as of this encounter Visit Diagnoses Not on filedocumented in this encounter Care Teams Foundry Worker Apprentice Relationship Specialty Start Date End Date Nanda Read MD PCP - General 05/08/09 05/20/18 documented as of this encounter
--- OUTSIDE RECORDS SUMMARY | 2024-05-15 11:04 | XMS_ITS | Encounter Summary ---
Author Organization [facility] Address [address] [place] [address] Care Team Providers Care Principal Consulting Engineer Name Role Phone Nanda Read MD Primary Care Provider Unavailable Reason for Visit * Reason Comments Vaginitis pt reports vaginal b urning that has been interrmitent x months. Associated with small amount of yellow/brownish discharge- not malodorous, and a feeling of pressure/weight in lower abd. rating pain 4/10 today. Denies burning with urination. was localized to external vulva, now feels like more and inside. Encounter Details Date Type Department Care Team (Late st Contact Info) Description 07/28/2015 15:[address] [facility] Women's Services - [address] [phone] Janet Wallace FNP Vaginal burning (Primary Dx) Discharge Disposition: Auto Discharge Social [...] Reading Time Taken Comments Blood Pressure 132/64 07/28/2015 1545 EDT Pulse 80 07/28/2015 1545 EDT Temperature - - Respiratory Rate - - Oxygen Saturation - - Inhaled Oxygen Concentration - - Weight 111.1 kg (245 lb) 07/28/2015 1545 EDT Height 160 cm (5' 3) 07/28/2015 1545 EDT Body Mass Index 43.4 07/28/2015 1545 EDT documented in this encounter Discharge Diagnoses Diagnosis N94.9 Unspecified condition associated with female genital organs and menstrual cycle-N94.9[ICD-10-CM] documented in this encounter Ordered Prescriptions Prescription Sig Dispensed Refills Start Date End Da te terconazole (TERAZOL 7) 0.4 % vaginal cream Place 1 Applicator vaginally daily for 7 days 1 Tube 2 07/28/2015 08/04/2015 documented in this encounter Discharge Disposition Disposition Code Departure Means Destination Auto Discharge documented in this encounter Progress Notes * Janet Wallace FNP - 07/28/2015 1708 EDT Vaginal burning- The Encounter on 07/28/2015 contained the following information Martha Benoit is a 49 y.o. female Chief Complaint Patient presents with ??? Vaginitis pt reports vaginal burning that has been interrmitent x months. Associated with small amount of yellow/brownish discharge- not malodorous, and a feeling of pressure/weight in lower abd. rating pain 4/10 today. Denies burning with urination. was localized to external vulva, now feels like more and inside. Subjective: Vaginal burning and vaginitis on and off for months. Treated over summer for desquamative inflammatory vaginitis with clindamycin x 14 d. Symptoms improved but not for long. Vaginitis exam 02/2015 showed yeast. Rx'd 1 year ago with metrogel. No recent antibiotics. Pt. Is diabetic. Douched with vinegar and water last night. Uncomfortable and frustrated. Drove here today from [place]. Patient Active Problem List Diagnosis ??? Mild dysplasia of cervix (AIDEN I) ??? Dysplasia of Vagina ??? Morbid obesity [...] ??? Diabetes Sister ??? Heart Disease Sister [place] at age 42 = ??? Diabetes Mother ??? Diabetes Brother ??? Diabetes Maternal Aunt ??? Diabetes Maternal Uncle History Substance Use Topics ??? Smoking status: Never Smoker ??? Smokeless tobacco: Not on file ??? Alcohol Use: No Outpatient Encounter Prescriptions as of 07/28/2015 Medication Sig Dispense Refill ??? ergocalciferol (VITAMIN [...] mouth 3 times daily before meals. ??? oxycodone-acetaminophen (PERCOCET) 5-325 mg per tablet Take 1 Tab by mouth every 4 hours as needed for Pain. Takes 5 tabs daily ??? POTASSIUM CHLORIDE ORAL Take 10 mEq by mouth 2 times daily. ??? [DISCONTINUED] terconazole (TERAZOL 3) 0.8 % vaginal cream Place 1 Applicator vaginally daily For 3 nights. 1 Tube 2 ??? terconazole (TERAZOL 7) 0.4 % vaginal cream Place 1 Applicator vaginally daily for 7 days 1 Tube 2 No facility-administered encounter medications on file as of 07/28/2015. Allergies Allergen Reactions ??? Codeine Nausea Only Per h /p O Here using a walker. Obese Skin has small and large boils in various stages of healing on her abdomen and inner thighs Vulva and vagina are red with thin white discharge. No odor Cervix- normal Wet smear is neg for clue cells, monilia and trich. Rare WBCs- no sheets. Numerous ? Spores , without hyphse- ? C. Glabrata or tropicalis. BP 132/64 mmHg Pulse 80 Ht 160 cm (63) Wt 111.131 kg (245 lb) BMI 43.41 kg/m2 LMP 07/19/2015 (Exact Date) Assessment & Plan: Martha was seen today for vaginitis. Vaginal burning- ? C. Glabrata- will Rx for this Other Orders - terconazole (TERAZOL 7) 0.4 % vaginal cream; Place 1 Applicator vaginally daily for 7 days Follow up in 3- [address] Vargas or Stevie. I did not do a yeast cult. Today but going forward, this might be helpful Machine Adjuster Helper declined by patient I spent a total of 20 minutes in face to face time with this patient and 15 minutes of that time was spent in counseling and coordination of care as described in the progress note. * Toshia Huerta, BRENDAN - 07/28/2015 1540 EDT Pt reports that she tried vinager and water douche, this was helpful. Rating yesterdays pain 8/10, felt raw. Pt has tried fluconazole 150mg-oral once- 1 week ago- no relief, metronidazole 0.75%- this help for 1 day, then she had no relief. Did the douche last night and is feeling better today. documented in this encounter Plan of Treatment Upcoming Encounters Date Type Department Care Team (Late st Contact Info) Description 05/22/2024 10:[address] [facility] Foot & Ankle Program - [address] [place] [address] Edwige Keller DPM [address] [place] [phone] 07/18/2024 13:[address] [facility] Women's Services - [address] [address] Jessica Murray, POLO 111 [facility], [facility], [address] [place] [address] documented as of this encounter Procedures Procedure Name Priority Date/Time Associated Diagnosis Comments POCT VAGINAL WET PREP INCLUDES TEJA Routine 07/28/2015 16:30 EDT Vaginal burning documented in this encounter Results * (ABNORMAL) POCT VAGINAL WET PREP INCLUDES TEJA (07/28/2015 16:30 EDT) Clue Cells, POC Absent Absent POINT OF CARE Trichomonas, POC Absent Absent POINT OF CARE Yeast, POC Present(A) Absent POINT OF CARE Comment:numerous atypical sp ore forms, no hyphae White Blood Cells, POC Present(A) Absent POINT OF CARE Comment:few Specimen of unknown material (specimen) 07/28/2015 16:30 EDT Janet Wallace UTILITY WORKER [employer] POINT OF CARE TEST O RDERABLES POINT OF CARE documented in this encounter Visit Diagnoses Diagnosis Vaginal burning- Primary Other specified symptom associated with female genital organs documented in this encounter Discontinued Medications Medication Sig Discontinue Reason Start Date End Da te terconazole (TERAZOL 3) 0.8 % vaginal cream Place 1 Applicator vaginally daily For 3 nights. 08/11/2014 07/28/2015 documented as of this encounter Care Teams Principal Consulting Engineer Relationship Specialty Start Date End Date Nanda Read MD PCP - General 05/08/09 05/20/18 documented as of this encounter
--- OUTSIDE RECORDS SUMMARY | 2024-05-15 11:04 | XMS_ITS | Encounter Summary ---
Author Organization [facility] Address [address] [place] [address] Care Team Providers Care Aircraft Ordnance Systems Mechanic Name Role Phone Nanda Read MD Primary Care Provider Unavailable Reason for Visit * Reason Onset Date Comments Results 04/15/2014 Encounter Details Date Type Department Care Team (Late st Contact Info) Description 04/15/2014 Telephone [facility] [address] [place], [place] [phone] Saadia Yan, RN Results Social History Tobacco Use Types [...] encounter Miscellaneous Notes * Telephone Encounter - Saadia Yan RN - 04/15/2014 4537 EDT Pt calling and asking for results of colpo done 04/08/14. Dr Lubin will call pt. She can be reachedat Or cell . documented in this encounter Plan of Treatment Upcoming Encounters Date Type Department Care Team (Late st Contact Info) Description 05/22/2024 10:00 EDT Office Visit [facility] Foot & Ankle Program - [facility] [address] [place] [address] Edwige Keller DPM [address] [place] [address] 07/18/2024 13:00 EDT Procedure visit [facility] Women's Services - [address] [phone] Jessica Murray NP 111 [facility], [address] [place] [phone] documented as of this encounter Visit Diagnoses Not on filedocumented in this encounter Care Teams Aircraft Ordnance Systems Mechanic Relationship Specialty Start Date End Date Nanda Read MD PCP - General 05/08/09 05/20/18 documented as of this encounter
--- OUTSIDE RECORDS SUMMARY | 2024-05-15 11:04 | XMS_ITS | Encounter Summary ---
Author Organization [facility] Address [address] [place] [address] Care Team Providers Care Rubber Goods Tester Name Role Phone Nanda Read MD Primary Care Provider Unavailable Reason for Visit * Reason Comments Follow-up Abnormal Paps. Encounter Details Date Type Department Care Team (Late st Contact Info) Description 02/28/2014 15:00 EDT Office Visit [facility] Women's Services - [address] [phone] Kassie Carreon PA-C 111 [facility], [address] [place] [address] HX OF CERVICAL DYSPLASIA (Primary Dx); Routine gynecological examination Social History Tobacco Use Types Packs/Day [...] Sign Reading Time Taken Comments Blood Pressure 118/72 02/28/2014 1448 EDT Pulse - - Temperature - - Respiratory Rate - - Oxygen Saturation - - Inhaled Oxygen Concentration - - Weight 111.1 kg (245 lb) 02/28/2014 1448 EDT Height 157.5 cm (5' 2) 02/28/2014 1448 EDT Body Mass Index 44.81 02/28/2014 1448 EDT documented in this encounter Progress Notes * Kassie Carreon PA - 02/28/2014 1506 EDT Subjective: Patient ID: Martha Benoit is an 48 y.o. female. Chief Complaint Patient presents with ??? Follow-up Abnormal Paps. HPI Martha Benoit is a 48 y.o. 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 On 08/15/2009, Martha underwent a LEEP and [...] repeat her pap smear in 6 months This was repeated in 01/2013, and was NIL and negative for HPV. At that point, we had recommended that she could have a repeat pap smear in 1 year. She did return to see us 6 months ago with a complaint of vaginal odor, she was treated with clindamycin cream for BV, and this symptom completely resolved. She states she is not sexually active. She recently had a clinical breast exam by her pcp, she has not had a mammogram, and is not interested in pursuing mammography. Now states that her LMP was in 11/2013, prior to that had been having periods about every 2 months.Denies significant hot flashes or night sweats. Patient Active Problem List Diagnosis ??? Mild Dysplasia of Cervix ??? Dysplasia [...] into the skin 2 times daily. ??? folic acid (FOLVITE) 1 mg tablet Take 1 mg by mouth daily. ??? furosemide (LASIX) 40 mg tablet Take 40 mg by mouth daily. ??? glipiZIDE (GLUCOTROL) 10 mg tablet Take 10 mg by mouth 2 times daily. ??? insulin glargine (LANTUS SOLOSTAR PEN) 300 unit/3 mL InPn Inject 84 Units into the skin once daily. ??? insulin lispro (HUMALOG) 100 unit/mL [...] Psychiatric/Behavioral: Negative. - See HPI Objective: BP 118/72 Ht 157.5 cm (62) Wt 111.131 kg (245 lb) BMI 44.8 kg/m2 LMP 11/14/2013 Physical Exam Constitutional: She is oriented to [...] has no wheezes. She has no rales. There is no breast swelling. Breast bleeding [...] normal. Judgment and thought contentnormal. Assessment: Yearly road builder exam, history of cervical dysplasia. Plan: There are no diagnoses linked to this encounter. Pap sent. If NIL, can reasonable reduce screening to q 3 years. Encouraged mammogram, pt will consider. Encouraged colonoscopy, pt to discuss with her pcp. Discussed perimenpausal state, LMP now 3 months ago, discussed bleeding patterns (prolonged or frequent) that would warrant further evaluation. Return to office in 1 year, sooner PRN. BERE Slater documented in this encounter Plan of Treatment Upcoming Encounters Date Type Department Care Team (Late st Contact Info) Description 05/22/2024 10:00 EDT Office Visit [facility] Foot & Ankle Program - [address] [place] [address] Edwige Keller DPM [address] [place] [phone] 07/18/2024 13:00 EDT Procedure visit [facility] [address] [place], [place] [phone] Jessica Murray, POLO 111 [facility], [facility], [address] [place] [address] documented as of this encounter Visit Diagnoses Diagnosis HX OF CERVICAL DYSPLASIA- Primary Routine gynecological examination documented in this encounter Care Teams Rubber Goods Tester Relationship Specialty Start Date End Date Nanda Read MD PCP - General 05/08/09 05/20/18 documented as of this encounter
--- OUTSIDE RECORDS SUMMARY | 2024-05-15 11:04 | XMS_ITS | Encounter Summary ---
Author Organization [facility] Address [address] [place] [address] Care Team Providers Care Prick Stitcher Name Role Phone Nanda Read MD Primary Care Provider Unavailable Reason for Visit * Reason Comments Abnormal Pap Smear recent pap NIL, + HP V Encounter Details Date Type Department Care Team (Late st Contact Info) Description 04/08/2014 10:[address] [facility] Women's Services - [address] [phone] Katy Lubin MD 111 [facility], [address] [place] [address] Vaginal discharge (Primary Dx); Cervical high risk human papillomavirus [...] - - Weight 112.5 kg (248 lb) 04/08/2014 1055 EDT Height - - Body Mass Index 45.36 02/28/2014 1448 EDT documented in this encounter Progress Notes * Katy Lubin MD - 04/08/2014 1128 EDT Images from the original note were not included. Sent by BERE Slater Colposcopy Procedure Note Indications: 48 y.o. P4 Patient's last menstrual period was 03/12/2014. Menses irregular. Current contraception none Pap smear done 02/2014 showed:NILM with positive high risk HPV. 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 paps [id number] wnl, neg HPV 05/2012 - neg cytology, pos HR HPV 01/2013 - neg/neg 02/2014 - neg cytology, pos HR HPV Prior cervical treatment: LEEP. Smoker non-smoker test none Has been given Gardasil vaccine: No Procedure Details The risks and benefits of the procedure and written informed consent obtained. Vulva inspected. Speculum placed in vagina and visualization of cervix achieved. Vagina and cervix soaked with acetic acid solution. Cervix and vagina painted with Lugol's solution. Exam was chaperoned by Madelin Madrigal. Image: Cervical colposcop : 360 degrees of columnar epithelium seen:no Vaginalcolposcop : Many punctate lugols negative spots consistent with inflammatory changes Vulvar inspection: Small pimple in right groin fold at approx 8 o'clock. No evidence of surroundingcellulitis Clinical Impressions: Colposcopy: VAIN: no Cervix: low grade Specimens: Biopsy Cervix 12 o'clock, ECC. Vaginitis swab sent for trich antigen. Complications: None. Plan: Patient will be called with pathology results and recommendations next week. Instructions sheet given to patient. Katy Lubin MD Addendum: 04/22/2014 Patient called with biopsy results last week. 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 Patient is very frustrated she thought this was gone after her the treatment. I discussed at length that for some individuals this is more like a chronic condition. We can remove abnormal skin, but we have no therapy to eliminate the HPV. Patient requesting more frequent followup. I explained that current guidelines show that frequent followup does not improve long-term outcome but does increase the necessary intervention. After a long discussion plan is for followup Pap smear and HPV a year from now. If either are positive she will get repeat colposcopy then. ] documented in this encounter Plan of Treatment Upcoming Encounters Date Type Department Care Team (Late st Contact Info) Description 05/22/2024 10:[address] [facility] Foot & Ankle Program - [address] [address] Edwige Keller DPM [address] [place] [phone] 07/18/2024 13:[address] [facility] Women's Services - [facility] [address] [place], [place] [phone] Jessica Murray NP 111 [facility], [facility], [address] [place] [address] documented as of this encounter Results * VAGINITIS EXAM (04/08/2014 12:18 EDT) Specimen Description Vagina [facility] Gram Smear Result No yeast seen. [facility] Gram Smear Result Unable to rule out the presence of bacterial vaginosis. [facility] Result No Trichomonas antigen detected. 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
--- OUTSIDE RECORDS SUMMARY | 2024-05-15 11:04 | XMS_ITS | Encounter Summary ---
Author Organization [facility] Address [address] [place] [address] Care Team Providers Care Scagliola Mechanic Name Role Phone Nanda Read MD Primary Care Provider Unavailable Reason for Visit * Reason Comments Follow-up Hx abnormal PAPs. Encounter Details Date Type Department Care Team (Late st Contact Info) Description 11/28/2011 10:00 EST Office Visit [facility] Gynecologic Oncology - [address] [phone] Trevor Julian MD 111 [facility], [facility] [address] [place] [address] Kassie Carreon PA-C 111 [facility], [facility] 2 [place] [address] Mild dysplasia of cervix (Primary Dx) Social History Tobacco Use Types [...] Reading Time Taken Comments Blood Pressure 110/60 11/28/2011 1004 EST Pulse 87 11/28/2011 1004 EST Temperature - - Respiratory Rate - - Oxygen Saturation 99% 11/28/2011 1004 EST Inhaled Oxygen Concentration - - Weight 111.1 kg (245 lb) 11/28/2011 1004 EST Height 157.5 cm (5' 2) 11/28/2011 1004 EST Body Mass Index 44.81 11/28/2011 1004 EST documented in this encounter Progress Notes * Kassie Carreon PA - 11/28/2011 1035 EST Subjective: Patient ID: Martha Benoit is an 46 y.o. female. Chief Complaint Patient presents with ??? Follow-up Hx abnormal PAPs. HPI Martha Benoit is a 44 y.o. Woman who presents for follow up pap smear [...] regular, monthly without significant menorrhagia or dysmenorrhea. She does note that sometimes before her menses she feels like she has an infection, notes itching. This did not happen before her last cycle. States not currently sexually active. Denies discharge or odor. Has not had mammograms, states that when she ws 38 she had a workup for an abnormal pap smear, which was distressing for her, she does [...] ??? Diabetes Sister ??? Heart Disease Sister [place] at age 42 = ??? Diabetes Mother [...] Negative. - See HPI Objective: BP 110/60 Pulse 87 Ht 157.5 cm (62) Wt 111.131 kg (245 lb) BMI 44.81 kg/m2 SpO2 99% LMP 11/21/2011 Physical Exam Constitutional: She appears well-developed and well-nourished. Genitourinary: There is no rash, tenderness, lesion [...] around the vagina. No vaginal discharge found. Cervix s/p LEEP, no exophytic lesions seen on her cervix. Assessment: Follow up for LSIL, s/p LEEP, now s/p 2 x NIL pap smears. Plan: Martha was seen today for follow-up. Diagnoses and associated orders for this visit: Mild dysplasia of cervix - Pap Test Pap smear obtained. If NIL, return for follow up in 6 months. Asked her to track her symptoms. No evidence of vaginal infection today, if anything is seen on herpap smear, will offer treatment. BERE Cabrera documented in this encounter Plan of Treatment Upcoming Encounters Date Type Department Care Team (Late st Contact Info) Description 05/22/2024 10:00 EDT Office Visit [facility] Foot & Ankle Program - [address] [place], [place] [phone] Edwige Keller [address] [phone] 07/18/2024 13:00 EDT Procedure visit [facility] Women's Services - [facility] [address] [place], [place] [phone] Jessica Murray NP 111 [facility], [facility], [address] [place] [phone] documented as of this encounter Visit Diagnoses Diagnosis Mild dysplasia of cervix- Primary documented in this encounter Care Teams Scagliola Mechanic Relationship Specialty Start Date End Date Nanda Read MD PCP - General 05/08/09 05/20/18 documented as of this encounter
--- OUTSIDE RECORDS SUMMARY | 2024-05-15 11:04 | XMS_ITS | Encounter Summary ---
Author Organization [facility] Address [address] [place] [address] Care Team Providers Care Junior Software Developer Name Role Phone Nanda Read MD Primary Care Provider Unavailable Reason for Visit * Reason Comments Follow-up yeast Encounter Details Date Type Department Care Team (Late st Contact Info) Description 09/24/2015 13:15 EST Office Visit [facility] LAUNDRY ATTENDANT Pelvic Medicine and Reconstructive Surgery - Medical Office Building [facility] [address] [place] [id number] Thais Hubbard MD MPH 2 [facility] Medical Office [facility], [address] [phone] Chronic vaginitis (Primary Dx) Social [...] Sign Reading Time Taken Comments Blood Pressure 130/72 09/24/2015 1318 EST Pulse - - Temperature - - Respiratory Rate - - Oxygen Saturation - - Inhaled Oxygen Concentration - - Weight 113.4 kg (250 lb) 09/24/2015 1318 EST Height - - Body Mass Index 44.3 08/18/2015 1325 EDT documented in this encounter Progress Notes * Thais Hubbard MD - 09/24/2015 1415 EST Patient here for follow up LAUNDRY ATTENDANT Ultrasound is normal. She has only taken Boric acid for one week. She tried to get insurance to pay then tried to get an alternative. Finally she paid for it. Somewhat improved. Plan: she will have boric acid suppository (once per night) one more week and RTC in 2-3 weeks for recheck. I spent a total of 10 minutes in face to face time with this patient today and 10 minutes of that time was spent counseling the patient on the risks and treatment options for vaginitis presumed secondary to atypical yeast. documented in this encounter Plan of Treatment Upcoming Encounters Date Type Department Care Team (Late st Contact Info) Description 05/22/2024 10:00 EDT Office Visit [facility] Foot & Ankle Program - [address] [address] Edwige Keller DPM [address] [place] [phone] 07/18/2024 13:00 EDT Procedure visit [facility] Women's Services - [facility] [address] [place], [place] [address] Jessica Murray NP 111 [facility], [facility], [address] [place] [address] documented as of this encounter Visit Diagnoses Diagnosis Chronic vaginitis- Primary Vaginitis and vulvovaginitis, unspecified documented in this encounter Care Teams Junior Software Developer Relationship Specialty Start Date End Date Nanda Read MD PCP - General 05/08/09 05/20/18 documented as of this encounter
--- OUTSIDE RECORDS SUMMARY | 2024-05-15 11:04 | XMS_ITS | Encounter Summary ---
Author Organization [facility] Address [address] [place] [address] Care Team Providers Care Milk Processing Worker Name Role Phone Nanda Read MD Primary Care Provider Unavailable Encounter Details Date Type Department Care Team (Late st Contact Info) Description 09/24/2015 16:21 EST - 09/24/2015 23:59 EST Hospital Encounter [facility] [phone] Thais Ruvalcaba MD 111 [facility], [address] [place] [address] Discharge Disposition: Home or Self Care Social [...] :01 EDT documented as of this encounter Discharge Diagnoses Diagnosis R10.2 Pelvic and perineal pain-R10.2[ICD-10-CM] documented in this encounter Medications at Time [...] Code Departure Means Destination Home or Self Senior Care documented in this encounter Plan of Treatment Upcoming Encounters Date Type Department Care Team (Late st Contact Info) Description 05/22/2024 10:[address] [facility] Foot & Ankle Program - [address] [place] [address] Edwige Keller DPM [address] [place] [address] 07/18/2024 13:[address] [facility] Women's Services - [facility] [address] [place] [address] Jessica Murray NP 111 [facility], [facility], [address] [place] [address] documented as of this encounter Visit Diagnoses Not on filedocumented in this encounter Care Teams Milk Processing Worker Relationship Specialty Start Date End Date Nanda Read MD PCP - General 05/08/09 05/20/18 documented as of this encounter
--- OUTSIDE RECORDS SUMMARY | 2024-05-15 11:04 | XMS_ITS | Encounter Summary ---
Author Organization [facility] Address [address] [place] [address] Care Team Providers Care Supervisor Transferring And Boxing Name Role Phone Nanda Read MD Primary Care Provider Unavailable Reason for Visit * Reason Onset Date Comments Medications Refill 06/25/2015 Encounter Details Date Type Department Care Team (Late st Contact Info) Description 06/25/2015 Telephone [facility] Women's Services - [facility] [address] [place] [address] Haily Hull RN [address] [place] [address] Medications Refill Social History Tobacco Use Types [...] Miscellaneous Notes * Telephone Encounter - Haily Hull, BRENDAN - 06/25/2015 1346 EDT Call rec'd from pharmacy requesting refill of clindamycin cream. Per previous documentation: Discussed that if the symptoms recur, she could try one more 7- day course of the vaginal clindamycin. Andif that still did not fully resolve her symptoms, would then recommend a topical steroid cream, such as clobetasol. Scripted clindamycin via telephone. Advised pt to call if sx do not resolve or recur for another treatment option. Pt verbalized understanding. documented in this encounter Plan of Treatment Upcoming Encounters Date Type Department Care Team (Late st Contact Info) Description 05/22/2024 10:00 EDT Office Visit [facility] Foot & Ankle Program - [address] [address] Edwige Keller [address] [address] 07/18/2024 13:00 EDT Procedure visit [facility] Women's Services - [facility] [address] [place] [address] Jessica Murray NP 111 [facility], [address] [place] [phone] documented as of this encounter Visit Diagnoses Not on filedocumented in this encounter Care Teams Supervisor Transferring And Boxing Relationship Specialty Start Date End Date Nanda Read MD PCP - General 05/08/09 05/20/18 documented as of this encounter
--- OUTSIDE RECORDS SUMMARY | 2024-05-15 11:04 | XMS_ITS | Encounter Summary ---
Author Organization [facility] Address [address] [place] [address] Care Team Providers Care Account Group Supervisor Name Role Phone Nanda Read MD Primary Care Provider Unavailable Encounter Details Date Type Department Care Team (Late st Contact Info) Description 02/28/2014 Results Only [facility] Women's Services - [address] [address] Kassie Carreon PA-C 111 [facility], [address] [place] [phone] Social History Tobacco Use Types Packs/Day Years [facility] [place] [address] [place] [address] [place] [address] Edwige Keller DPM [address] [place] [phone] 07/18/2024 13:00 EDT Procedure visit [facility] Women's Services - [facility] [address] [place], [place] [address] Jessica Murray NP 111 [facility], [address] [place] [address] documented as of this encounter Procedures Procedure Name Priority Date/Time Associated Diagnosis Comments PAP TEST- RESULT ONLY Routine 02/28/2014 0:00 EDT documented in this encounter Results * PAP TEST- RESULT ONLY (02/28/2014 0:00 EDT) Pathology Report: CYTOPATHOLOGY REPORT Reports generated via electronic interface contain original data; however they are lacking the format of the original report. Caution should be taken when reading/interpreti ng unformatted reports. Name: ? JO JONES ? Accession #: ? [id number] ? : ? 1965 (Age: 48) ??F ?Collect Date: ? 02/28/2014 ? Location: ? OBGYN ? Receive Date: ? 03/04/2014 ? Provider: KASSIE BLACKBURN Copy to: ? Final Report SPECIMEN ADEQUACY ? Satisfactory for Evaluation - transformation zone component present GENERAL CATEGORIZATION ? Negative for Intraepithelial Lesion or Malignancy ?? Previous Gynecologic Pathology: Yes: Cervical dysplasia h/o Treatment History: LEEP: s/p 2008 Specimen/Source: ??Pap Test, Cervix/Endocervix, ThinPrep Imaging System with manual evaluation Document reviewed and electronically signed by: ? Carolina Blair, SCT(ASCP) ? Report ??Date: 03/10/2014 17:21 HPV with Pap Test ? Date Ordered: ? 03/10/2014 ? Status: ?? Signed Out ?Date Complete: ? 03/13/2014 ? By: ??System Interface ? Date Reported: ? 03/13/2014 ? Interpretation RESULT: Positive for high or intermediate risk HPV. E6 OR E7 mRNA from one or more types of HPV types 16,18,31, 33,35,39,45,51,52, 56,58,59,66, and 68 is detected by heavy equipment rental manager mediated amplification. High and intermediate risk HPV types are associated with most squamous intraepithelial lesions and cervical cancers. Comments Document reviewed and electronically signed by: ? System Interface ? Report date: 03/13/2014 By the signature above, the attending physician certifies that he/she has personally conducted a gross and/or microscopic examination of the described specimens and rendered or confirmed the above diagnosis. End of Report [facility] 02/28/2014 03/04/2014 Kassie Carreon PA-C PATHOLOGY ROBINA GOLD [facility] [address] [place] [address] documented in this encounter Visit Diagnoses Not on filedocumented in this encounter Care Teams Account Group Supervisor Relationship Specialty Start Date End Date Nnada Read MD PCP - General 05/08/09 05/20/18 documented as of this encounter
--- OUTSIDE RECORDS SUMMARY | 2024-05-15 11:04 | XMS_ITS | Encounter Summary ---
Author Organization [facility] Address [address] [place] [address] Care Team Providers Care Sewing Teacher Name Role Phone Nanda Read MD Primary Care Provider Unavailable Encounter Details Date Type Department Care Team (Late st Contact Info) Description 11/29/2010 Results Only [facility] Gynecologic Oncology - [address] [address] Trevor Burnham MD 111 [facility], [address] [place] [phone] Social History Tobacco Use Types Packs/Day Years [...] [facility] Foot & Ankle Program - [place] [address] [place], [place] [address]wal[place] [address] Edwige Keller DPM [address] [place] [phone] 07/18/2024 13:00 EDT Procedure visit [facility] Women's Services [facility] [address] [place], [place] [phone] Jessica Murray, POLO 111 [facility], [address] [place] [address] documented as of this encounter Procedures Procedure Name Priority Date/Time Associated Diagnosis Comments CYTOPATHOLOGY Routine 11/29/2010 0:00 EST documented in this encounter Results * CYTOPATHOLOGY (11/29/2010 0:00 EST) Pathology Report: CYTOPATHOLOGY REPORT ? Reports generated via electronic interface contain original data; ? however they are lacking the format of the original report. ? Caution should be taken when reading/interpreti ng unformatted reports. ? Name: ? JO JONES ? Accession #: ? [id number] ? : ? 1965 (Age: 45) ??F ?Collect Date: ? 11/29/2010 ? Location: ? OBONC ? Receive Date: ? 11/29/2010 ? Provider: ?TERRELL BURNHAM MD ? Copy to: ? Specimen/Source: ?Pap Test, Diagnostic, Cervix/Endocervix, ThinPrep ? Imaging System with manual evaluation ? Last Menstrual Period: ? Previous Gynecologic Pathology: ? LSIL: persistent ? ASC-US: 12/2009 ? Treatment History: ? LEEP: 10/24/09 and laser of posterior wall of the vagina because of persistent ?? LGSIL ? Other: ? Additional clinical information: Pap smear from 04/2010 was negative for any ? dysplasia or malignancy ? SPECIMEN ADEQUACY ? Satisfactory for Evaluation ? - transformation zone component present ? GENERAL CATEGORIZATION ? Negative for Intraepithelial Lesion or Malignancy ? Document reviewed and electronically signed by: ? Lynan Bobby, CT(ASCP) ? Report Date: ??12/02/2010 14:01 ? End of Report ? [facility] 11/29/2010 11/29/2010 Trevor Burnham MD PATHOLOGY ORDERABLES [facility] [address] [place] [address] documented in this encounter Visit Diagnoses Not on filedocumented in this encounter Care Teams Sewing Teacher Relationship Specialty Start Date End Date Nanda Read MD PCP - General 05/08/09 05/20/18 documented as of this encounter
--- OUTSIDE RECORDS SUMMARY | 2024-05-15 11:04 | XMS_ITS | Encounter Summary ---
Author Organization [facility] Address [address] [place] [address] Care Team Providers Care Manager Occupational Name Role Phone Nanda Read MD Primary Care Provider Unavailable Reason for Visit * Reason Comments Follow-up Encounter Details Date Type Department Care Team (Late st Contact Info) Description 03/06/2015 15:00 EDT Office Visit [facility] Women's Services - [address] [address] Kassie Crareon PA-C 111 [facility], [address] [place] [address] Routine gynecological examination (Primary Dx); Vaginal discharge Social History Tobacco Use Types [...] Sign Reading Time Taken Comments Blood Pressure 124/78 03/06/2015 1504 EDT Pulse - - Temperature - - Respiratory Rate - - Oxygen Saturation - - Inhaled Oxygen Concentration - - Weight 112.5 kg (248 lb) 03/06/2015 1504 EDT Height 157.5 cm (5' 2.01) 03/06/2015 1504 EDT Body Mass Index 45.35 03/06/2015 1504 EDT documented in this encounter Progress Notes * Kassie Carreon PA - 03/12/2015 1022 EDT Subjective: Patient ID: Martha Benoit is an 49 y.o. female. Chief Complaint Patient presents with ??? Follow-up HPI Martha Benoit is a 49 y.o. woman followed by us primarily for a history of abnormal pap smears, nowhere for her annual finisher wallboard and plasterboard exam. On 08/15/2009, Martha underwent a LEEP [...] was again NIL, but was positive for HPV. She underwent a colposcopy on 04/08/14, boipsy at that time showed AIDEN 1, and recommendation made to follow up with pap/HPV in one year. She is frustrated that this seems to persist, and also thought that today she would have a colposcopy, stating that last year she could see it everywhere on the screen, so was hoping for the same evaluation. Long discussion at that time about recommended follow up, and returns for pap/HPV today. Was seen by Janet in July with vaginal itching, diagnosed with yeast and treated with terazol 3. Does note some vaginal itching today.. She states she is not currently sexually active. Agrees to clinical breast exam today,does not want to have mammograms as one time she had a call back for a mammogram with additional imaging, and found this to be a stressful and unpleasant experience. Menses currently q 2-3 months, no prolonged or heavy bleeding, or metorrhagia. Patient Active Problem List Diagnosis ??? Mild [...] ??? Diabetes Sister ??? Heart Disease Sister [place] at age 42 = ??? Diabetes Mother [...] mEq by mouth 2 times daily. ??? terconazole (TERAZOL 3) 0.8 % vaginal cream Place 1 Applicator vaginally daily For 3 nights. 1 Tube 2 No current facility-administered medications on file prior to visit. Allergies Allergen Reactions ??? Codeine Nausea Only Per h /p Review of Systems Constitutional: Negative. HENT: Negative. Eyes: Negative. Respiratory: Negative. Cardiovascular: Negative. Gastrointestinal: Negative. Endocrine: Negative. Genitourinary: Negative. Vaginal itching Musculoskeletal: Negative. Skin: Negative. Allergic/Immunologic: Negative. Neurological: Negative. Hematological: Negative. Psychiatric/Behavioral: Negative. - See HPI Objective: BP 124/78 Ht 157.5 cm (62.01) Wt 112.492 kg (248 lb) BMI 45.35 kg/m2 LMP 12/21/2014 (Within Days) Physical Exam Constitutional: She is oriented to [...] is no tenderness. Thereis no rebound. Genitourinary: There is no rash, tenderness, no lesion or injury on the right labia. There is no rash, tenderness, no lesion or injury on the left labia. No vaginal erythema, tenderness or bleeding. No signs of injury around the vagina. Vaginal discharge (mild, white. Vaginitis exam sent) found. Right adnexum displays no mass, no tenderness and no fullness. Left adnexum displays no mass, no tenderness and no fullness. Cervix exhibits no motion tenderness, [...] normal. Judgment and thought contentnormal. Assessment: Yearly finisher wallboard and plasterboard exam. Follow up, AIDEN 1 with history of LEEP in the past. Vaginal itching, ? Yeast Plan: Martha was seen today for follow-up. Diagnoses and associated orders for this visit: Routine gynecological examination - Pap Test - Screening Pap Smear;Obtain,Prep,Convey To Lab Vaginal discharge - Vaginitis Exam 1) Pap with HPV regardless. If either are positive, return for colposcopy. If NIL/negative, repeat in 1 year. 1. Long discussion as we and other providers have had in the past regarding the current recommendations for followup for positive HPV screening. Martha has expressed that she is frustrated that it seems to persist and we discussed that of many conditions, this can be a chronic condition. There is noway that we can treat HPV, but our best plan is to continue to monitor for any lesions that may develop into high-grade abnormalities. 2. With regards to her vaginal itching, I did send a vaginitis exam. If evidence of yeast, we will treat it and if she seems to have recurrent yeast, we will bring her back for a further recurrent vaginitis evaluation including a yeast culture and potentially biopsies if there is any itching that does not seem to be caused by yeast. 3. Strongly encouraged the patient to undergo mammography. Clinical breast exam was performed today, which was negative for any concerning lesions. BERE Johnson documented in this encounter Plan of Treatment Upcoming Encounters Date Type Department Care Team (Late st Contact Info) Description 05/22/2024 10:00 EDT Office Visit [facility] Foot & Ankle Program - [address] [place], [place] [phone] Edwige Keller DPM [address] [place] [address] 07/18/2024 13:00 EDT Procedure visit [facility] Women's Services - [address] [phone] Jessica Murray NP 111 [facility], [address] [place] [address] Scheduled Orders Name Type Priority Associated Diagnoses Orde r Schedule PAP TEST- ORDER ONLY Pathology Routine Routine gynecological examination Ordered: 03/06/2015 SCREENING PAP SMEAR;OBTAIN,PREP,CON VEY TO LAB Procedures Routine Routine gynecological examination Ordered: 03/06/2015 documented as of this encounter Procedures Procedure Name Priority Date/Time Associated Diagnosis Comments ZZVAGINITIS EXAM Routine 03/06/2015 15:4 4 EDT Vaginal discharge documented in this encounter Results * VAGINITIS EXAM (03/06/2015 15:44 EDT) Gram Smear Result Yeast forms 03/06/2015 22:58 EDT [facility] Result No Trichomonas antigen detected. 03/06/2015 22:28 EDT [facility] Gram Smear Result Unable to rule out the presence of bacterial vaginosis. 03/06/2015 22:58 EDT [facility] Specimen of unknown material (specimen) VAGINAL STRUCTURE / Unknown 03/06/2015 15:44 EDT 03/06/2015 17:28 EDT Kassie Carreon PA-C MICROBIOLOGY - GENERAL ORDERABLES [facility] [address] [place] [address] documented in this encounter Visit Diagnoses Diagnosis Routine gynecological examination- Primary Vaginal discharge Leukorrhea, not specified as infective documented in this encounter Care Teams Manager Occupational Relationship Specialty Start Date End Date Nanda Read MD PCP - General 05/08/09 05/20/18 documented as of this encounter
--- OUTSIDE RECORDS SUMMARY | 2024-05-15 11:04 | XMS_ITS | Encounter Summary ---
Author Organization [facility] Address [address] [place] [address] Care Team Providers Care Gift Officer Name Role Phone Nanda Read MD Primary Care Provider Unavailable Encounter Details Date Type Department Care Team (Late st Contact Info) Description 03/06/2015 Results Only [facility] Services - [address] [phone] Kassie Carreon PA-C 111 [facility], [address] [place] [phone] Social History Tobacco Use Types Packs/Day Years [...] Description 05/22/2024 10:00 EDT Office Visit [facility] - [place] [address] [place] [address] [place] [address] Edwige Keller DPM [address] [place] [phone] 07/18/2024 13:00 EDT Procedure visit [facility] - [facility] [address] [place], [place] [address] Jessica Murray NP 111 [facility], [address] [place] [address] documented as of this encounter Procedures Procedure Name Priority Date/Time Associated Diagnosis Comments PAP TEST- RESULT ONLY Routine 03/06/2015 0:00 EDT documented in this encounter Results * PAP TEST- RESULT ONLY (03/06/2015 0:00 EDT) Pathology Report: CYTOPATHOLOGY REPORT Reports generated via electronic interface contain original data; however they are lacking the format of the original report. Caution should be taken when reading/interpreti ng unformatted reports. Name: ? JO JONES ? Accession #: ? [id number] ? : ? 1965 (Age: 49) ??F ?Collect Date: ? 03/06/2015 ? Location: ? OBGYN ? Receive Date: ? 03/10/2015 ? Provider: KASSIE BLACKBURN Copy to: ? Final Report SPECIMEN ADEQUACY ? Satisfactory for Evaluation - transformation zone component present GENERAL CATEGORIZATION ? Negative for Intraepithelial Lesion or Malignancy INTERPRETATION ? Reactive cellular changes associated with inflammation present (includes repair). Last Menstrual Period: 3/5/15 Previous Gynecologic Pathology: AIDEN I: Last Year Treatment History: LEEP: H/o Specimen/Source: ??Pap Test, Cervix/Endocervix, ThinPrep Imaging System with manual evaluation Document reviewed and electronically signed by: ? SYLVESTER LAEJANDRA MD ? Report ??Date: 03/20/2015 15:41 HPV with Pap Test ? Date Ordered: ? 03/20/2015 ? Status: ?? Signed Out ?Date Complete: ? 03/24/2015 ? By: ??System Interface ? Date Reported: ? 03/24/2015 ? Interpretation RESULT: Negative for HPV. No E6 or E7 mRNA is detected from HPV types 16,18,31,33,35, 39,45,51,52,56,58, 59,66, and 68 by cello teacher mediated amplification. Comments Document reviewed and electronically signed by: ? System Interface ? Report date: 03/24/2015 By the signature above, the attending physician certifies that he/she has personally conducted a gross and/or microscopic examination of the described specimens and rendered or confirmed the above diagnosis. End of Report [facility] 03/06/2015 03/10/2015 Kassie Carreon PA-C PATHOLOGY ROBINA GOLD [facility] [address] [place] [address] documented in this encounter Visit Diagnoses Not on filedocumented in this encounter Care Teams Gift Officer Relationship Specialty Start Date End Date Nanda Read MD PCP - General 05/08/09 05/20/18 documented as of this encounter
--- OUTSIDE RECORDS SUMMARY | 2024-05-15 11:04 | XMS_ITS | Encounter Summary ---
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 Pap smear on 12/2009 demonstrated ASCUS and pap smear from 04/2010 was negative for any dysplasia or malignancy. Encounter Details Date Type Department Care Team (Late st Contact Info) Description 11/29/2010 9:15 EST Office Visit [facility] Gynecologic Oncology - [address] [phone] Trevor Julian MD [address] [facility], Level 4 [place] [phone] LGSIL on Pap smear (Primary Dx) Discharge Disposition: Auto Discharge Social [...] Sign Reading Time Taken Comments Blood Pressure 112/70 11/29/2010 0854 EST Pulse - - Temperature - - Respiratory Rate - - Oxygen Saturation - - Inhaled Oxygen Concentration - - Weight 103.4 kg (228 lb) 11/29/2010 0854 EST Height 157.5 cm (5' 2) 11/29/2010 0854 EST Body Mass Index 41.7 11/29/2010 0854 EST documented in this encounter Ordered Prescriptions Prescription Sig Dispensed Refills Start Date End Da te metronidazole (METROGEL) 0.75 % vaginal gel Place 1 Applicator vaginally daily for 5 days. Please dispense 1 box of 5 applicators. Thank you. 1 Tube 0 11/29/2010 08/19/2014 metronidazole (METROGEL) 0.75 % vaginal gel Place 1 Applicator vaginally 2 times daily for 7 days. 1 Tube 0 11/29/2010 11/29/2010 documented in this encounter Discharge Disposition Disposition Code Departure Means Destination Auto Discharge documented in this encounter Progress Notes * Trevor Julian MD - 11/29/2010 1026 EST Clive Ramos MD [address] [place] [address] Dear Otto: Just a note to keep you updated to your patient, Martha Benoit. As you will recall, Martha Benoit is a 44 y.o. 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 Pap smear on 12/2009demonstrated ASCUS and pap smear from 06/2010 was negative for any dysplasia or malignancy. [...] outpatient prescriptions Medication Sig Dispense Refill ??? metronidazole (METROGEL) 0.75 % vaginal gel Place 1 Applicator vaginally daily for 5 days. Please dispense 1 box of 5 applicators. Thank you. 1 Tube 0 ??? pregabalin (LYRICA) 100 mg capsule Take [...] Only Per h /p Review of Systems Pertinent items are noted in Subjective/HPI Objective: BP 112/70 Ht 157.5 cm (62) Wt 103.42 kg (228 lb) LMP 10/25/2010 Pelvic exam demonstrates that the external genitalia is grossly within normal limits. Vagina is grossly within normal limits with no evidence of any exophytic lesions or irritated areas. Cervix is grossly normal. Pap smear was obtained. Bimanual exam demonstrates that uterus and cervix are small. No appreciable adnexal masses or tenderness. On pelvic exam, I could not elicit any pain or tenderness on pelvic exam. Assessment and Plan: Today, I explained to Martha that I am overall pleased with how she is doing. I explained to her that with regards to her history of dysplasia and abnormal Pap smears, we will call her with the Pap smear results. With regards to her itching in the vagina, at this time, I do not see any obvious causefor the itching, but it is possible that she may have some pathology in this area and I have taken t he liberty of treating her with MetroGel cream. Today, of note, Martha states that her menstrual periods are back to normal. She has no menstrual irregularities. I explained to Martha that I will call her with the Pap smear results, and depending on those results I will see her back in 6 months to one years' time. She is agreeable to this. As always, I thank you very much for allowing me to participate in the care of your patient. I willkeep you informed of her progress. Sincerely and Respectfully, Trevor Julian MD Director of Gynecologic Oncology [facility] CC: MD Nanda Vasquez MD documented in this encounter Plan of Treatment Upcoming Encounters Date Type Department Care Team (Late st Contact Info) Description 05/22/2024 10:00 EDT Office Visit [facility] Foot & Ankle Program - [address] [place] [address] Edwige Keller DPM [address] [place] [phone] 07/18/2024 13:00 EDT Procedure visit [facility] Women's Services - [address] [phone] Jessica Murray NP [address] [place] [address], Level 4 [place] [phone] Scheduled Orders Name Type Priority Associated Diagnoses Orde r Schedule PAP TEST- ORDER ONLY Pathology Routine LGSIL on Pap Smear Ordered: 11/29/2010 documented as of this encounter Visit Diagnoses Diagnosis Papanicolaou smear of cervix with low grade squamous intraepithelial lesion (LGSIL)- Primary documented in this encounter Discontinued Medications Medication Sig Discontinue Reason Start Date End Da te metronidazole (METROGEL) 0.75 % vaginal gel Place 1 Applicator vaginally 2 times daily for 7 days. Dose adjustment 11/29/2010 11/29/2010 documented as of this encounter Care Teams Television Picture Tube Rebuilder Relationship Specialty Start Date End Date Nanda Read MD PCP - General 05/08/09 05/20/18 documented as of this encounter
--- OUTSIDE RECORDS SUMMARY | 2024-05-15 11:04 | XMS_ITS | Encounter Summary ---
Author Organization [facility] Address [address] [place] [address] Care Team Providers Care Routing Equipment Tender Name Role Phone Nanda Read MD Primary Care Provider Unavailable Reason for Visit * Reason Comments Follow-up Encounter Details Date Type Department Care Team (Late st Contact Info) Description 05/25/2012 15:00 EDT Office Visit [facility] Women's Services [address] [address] Kassie Carreon PA-C 111 [facility], Level 2 [place] [phone] LSIL (low grade squamous intraepithelial lesion) on Pap smear (Primary Dx) Social History [...] Sign Reading Time Taken Comments Blood Pressure 130/78 05/25/2012 1410 EDT Pulse - - Temperature - - Respiratory Rate - - Oxygen Saturation - - Inhaled Oxygen Concentration - - Weight - - Height - - Body Mass Index - - documented in this encounter Progress Notes * Kassie Carreon PA - 05/25/2012 1415 EDT Subjective: Patient ID: Martha Benoit is an 46 y.o. female. Chief Complaint Patient presents with ??? Follow-up HPI Martha Benoit is a 44 y.o. Woman who presents for follow up pap smear because of LGSIL. 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 Pap smear on 12/2009 demonstrated ASCUS and pap smear from 06/2010 and 11/2010, 05/2011 and 11/2011 were negative for any dysplasia or malignancy. She [...] ??? Diabetes Sister ??? Heart Disease Sister [place] at age 42 = ??? Diabetes Mother [...] Psychiatric/Behavioral: Negative. - See HPI Objective: BP 130/78 LMP 04/24/2012 Physical Exam Genitourinary: There is no rash, tenderness, lesion [...] vagina. No vaginal discharge found. Cervix s/p LEEP Assessment: Follow up for LSIL. Plan: There are no diagnoses linked to this encounter. Pap smear sent today. If NIL, she will have had 4 normal pap smear, so it may be reasonable to return to annual pap smears. Will await and notify patient of her results. BERE Cabrera documented in this encounter Plan of Treatment Upcoming Encounters Date Type Department Care Team (Late st Contact Info) Description 05/22/2024 10:00 EDT Office Visit [facility] Foot & Ankle Program - [address] [address] Edwige Keller DPM [address] [place] [phone] 07/18/2024 13:00 EDT Procedure visit [facility] Women's Services - [facility] [address] [place], [place] [phone] Jessica Murray NP 111 [facility] [place], [address] [place] [address] documented as of this encounter Visit Diagnoses Diagnosis LSIL (low grade squamous intraepithelial lesion) on Pap smear- Primary Other nonspecific abnormal finding documented in this encounter Care Teams Routing Equipment Tender Relationship Specialty Start Date End Date Nanda Read MD PCP - General 05/08/09 05/20/18 documented as of this encounter
--- OUTSIDE RECORDS SUMMARY | 2024-05-15 11:04 | XMS_ITS | Encounter Summary ---
Author Organization [facility] Address [address] [place] [address] Care Team Providers Care Audio Visual Facilities Engineer Name Role Phone Nanda Read MD Primary Care Provider Unavailable Encounter Details Date Type Department Care Team (Late st Contact Info) Description 06/24/2010 Results Only [facility] Gynecologic Oncology - [address] [phone] Trevor Burnham MD 111 [facility], Level 4 [place] [phone] Social History Tobacco Use Types Packs/Day Years [...] Info) Description 05/22/2024 10:00 EDT Office Visit [facility] Foot & Ankle Program - [place] [address] [place], [place] [address]wal[place] [address] Edwige Keller DPM [address] [place] [phone] 07/18/2024 13:00 EDT Procedure visit [facility] Women's Services [facility] [address] [place], [place] [address] Jessica Murray, POLO 111 [facility], [address] [place] [address] documented as of this encounter Procedures Procedure Name Priority Date/Time Associated Diagnosis Comments CYTOPATHOLOGY Routine 06/24/2010 0:00 EDT documented in this encounter Results * CYTOPATHOLOGY (06/24/2010 0:00 EDT) Pathology Report: CYTOPATHOLOGY REPORT ? Reports generated via electronic interface contain original data; ? however they are lacking the format of the original report. ? Caution should be taken when reading/interpreti ng unformatted reports. ? Name: ? JO JONES ? Accession #: ? [id number] ? : ? 1965 (Age: 44) ??F ?Collect Date: ? 06/24/2010 ? Location: ? [facility] ? Receive Date: ? 06/24/2010 ? Provider: ?TERRELL BURNHAM MD ? Copy to: ? Specimen/Source: ?Pap Test, Cervix/Endocervix, ThinPrep Imaging System ? with manual evaluation ? Last Menstrual Period: ? Previous Gynecologic Pathology: ? ASC-US: pap 12/2009 ? Treatment History: ? LEEP: 08/15/09, procedure of the cervix, extensive laser vaporizatiopn of ? posterior vaginal fonix ? Other: ? HPVA - HPV testing requested if ASC-US on the current ThinPrep Pap test. ? SPECIMEN ADEQUACY ? Satisfactory for Evaluation ? - transformation zone component present ? GENERAL CATEGORIZATION ? Other, see interpretation ? INTERPRETATION ? Endometrial cells present in a woman equal to or greater than age 40. ? Negative for Intraepithelial Lesion. ? EDUCATIONAL NOTES/RECOMMENDATI ONS ? Benign appearing endometrial cells on Pap tests are usually a normal ? finding in women with regular menstrual cycles, especially if the Pap test was ?? collected during the first half of the menstrual cycle. ? There is data showing that endometrial cells on Pap tests may be associated with endometrial/uterin e abnormalities in post menopausal women or in perimenopausal women with abnormal bleeding. ? There is limited data on the significance of benign endometrial cells in post ?? menopausal women on HRT. ??Clinical correlation is recommended. ? Note: ??The Pap test is not an accurate test for the screening of endometrial ? lesions and should not be used as a follow up in patients with clinical ? suspicion of endometrial pathology. ? Document reviewed and electronically signed by: ? Ingrid Jim, CT(ASCP) ? Report Date: ??07/01/2010 07:51 ? End of Report ? [facility] 06/24/2010 06/24/2010 Trevor Burnham MD PATHOLOGY ORDERABLES [facility] [address] [place] [address] documented in this encounter Visit Diagnoses Not on filedocumented in this encounter Care Teams Audio Visual Facilities Engineer Relationship Specialty Start Date End Date Nanda Read MD PCP - General 05/08/09 05/20/18 documented as of this encounter
--- OUTSIDE RECORDS SUMMARY | 2024-05-15 11:04 | XMS_ITS | Encounter Summary ---
Author Organization [facility] Address [address] [place] [address] Care Team Providers Care Grease Cup Filler Name Role Phone Nanda Read MD Primary Care Provider Unavailable Encounter Details Date Type Department Care Team (Late st Contact Info) Description 06/02/2011 Results Only [facility] Gynecologic Oncology - [address] [phone] Trevor Burnham MD 111 [facility], Level [address] [place] [phone] Social History Tobacco Use Types Packs/Day Years [facility] [place] [address] [place], [place] [address] [address] Edwige Keller DPM [address] [place] [phone] 07/18/2024 13:00 EDT Procedure visit [facility] Women's Services - [facility] [address] [place], [place] [address] Jessica Murray, POLO 111 [facility] [address] [place] [phone] documented as of this encounter Procedures Procedure Name Priority Date/Time Associated Diagnosis Comments PAP TEST- RESULT ONLY Routine 06/02/2011 0:00 EDT documented in this encounter Results * PAP TEST- RESULT ONLY (06/02/2011 0:00 EDT) Pathology Report: CYTOPATHOLOGY REPORT ? Reports generated via electronic interface contain original data; ? however they are lacking the format of the original report. ? Caution should be taken when reading/interpreti ng unformatted reports. ? Name: ? JO JONES ? Accession #: ? [id number] ? : ? 1965 (Age: 45) ??F ?Collect Date: ? 06/02/2011 ? Location: ? [facility] ? Receive Date: ? 06/02/2011 ? Provider: ?TERRELL BURNHAM MD ? Copy to: ? Specimen/Source: ?Pap Test, Cervix/Endocervix, ThinPrep Imaging System ? with manual evaluation ? Last Menstrual Period: ? Previous Gynecologic Pathology: ? LSIL: persistent ? Treatment History: ? LEEP: S/P ? Laser therapy: of posterior wall of the vagina because of persistent LGSIL ? 08/15/2009 ? SPECIMEN ADEQUACY ? Satisfactory for Evaluation ? - transformation zone component present ? GENERAL CATEGORIZATION ? Negative for Intraepithelial Lesion or Malignancy ? INTERPRETATION ? Reactive cellular changes associated with inflammation present (includes ?? repair). ? Document reviewed and electronically signed by: ? СЕРГЕЙDWYN ELVIAMAN MBBCh ? Report Date: ??06/13/2011 13:17 ? End of Report ? [facility] 06/02/2011 06/02/2011 Trevor Burnham MD PATHOLOGY ORDERABLES [facility] [address] [place] [address] documented in this encounter Visit Diagnoses Not on filedocumented in this encounter Care Teams Grease Cup Filler Relationship Specialty Start Date End Date Nanda Read MD PCP - General 05/08/09 05/20/18 documented as of this encounter
--- OUTSIDE RECORDS SUMMARY | 2024-05-15 11:04 | XMS_ITS | Encounter Summary ---
Author Organization [facility] Address [address] [place] [address] Care Team Providers Care Senior Quality Manager Name Role Phone Nanda Read MD Primary Care Provider Unavailable Reason for Visit * Reason Comments Follow-up Encounter Details Date Type Department Care Team (Late st Contact Info) Description 08/30/2013 16:00 EST Office Visit [facility] Women's Services - [address] [address] Kassie Carreon PA-C 111 [facility], Level [address] [place] [phone] Vaginitis and vulvovaginitis, unspecified (Primary Dx) Social History Tobacco Use Types [...] Sign Reading Time Taken Comments Blood Pressure 110/50 08/30/2013 1613 EST Pulse - - Temperature - - Respiratory Rate - - Oxygen Saturation - - Inhaled Oxygen Concentration - - Weight - - Height - - Body Mass Index - - documented in this encounter Ordered Prescriptions Prescription Sig Dispensed Refills Start Date End Da te metroNIDAZOLE (METROGEL VAGINAL) 0.75 % vaginal gel Place 37.5 mg vaginally at bedtime for 5 days. 1 Tube 0 08/30/2013 09/04/2013 documented in this encounter Progress Notes * Kassie Carreon PA - 09/01/2013 8273 EST Subjective: Patient ID: Martha Benoit is an 47 y.o. female. Chief Complaint Patient presents with ??? Follow-up HPI Martha Benoit is a 47 y.o. woman followed by us for a history of abnormal pap smears. On 08/15/2009, Martha underwent a LEEP and [...] repeat pap smear in 1 year. She returns today as she had been scheduled for a 6 month follow up at the time of her last appointment, and kept this appointment. However, she also complains today of vaginal irritation and odor. She notes that she was recently on vacation and swimming in a pool where she noted that the chemicals were very strong. After that, she noted some vaginal burning and odor. She had some diflucan that had been prescribed for frequent yeast infections due to her history of diabetes, she took one, but had little relief, so she took another 5 days later. She had no improvement with this, so she used a 7 day course of OTC monistat. She continues to note odor, which she affirms is fishy, as well as some discharge and odor. She states she is not sexually active. Patient Active Problem List Diagnosis ??? Mild [...] ??? Diabetes Sister ??? Heart Disease Sister [place] at age 42 = ??? Diabetes Mother ??? Diabetes Brother ??? Diabetes Maternal Aunt ??? Diabetes Maternal Uncle Social History Substance Use Topics ??? Smoking status: Never Smoker ??? Smokeless tobacco: Not on file ??? Alcohol Use: No Current Outpatient Prescriptions on File Prior to Visit Medication Status Sig Dispense Refill ??? ergocalciferol (VITAMIN D) 50,000 unit capsule Active Take 50,000 Units by mouth twice a week. ??? Exenatide (BYETTA) 10 mcg/0.04 mL PnIj Active Inject 10 mcg into the skin 2 times daily. ??? folic acid (FOLVITE) 1 mg tablet Active Take 1 mg by mouth daily. ??? furosemide (LASIX) 40 mg tablet Active Take 40 mg by mouth daily. ??? glipiZIDE (GLUCOTROL) 10 mg tablet Active Take 10 mg by mouth 2 times daily. ??? insulin glargine (LANTUS SOLOSTAR PEN) 300 unit/3 mL InPn Active Inject 84 Units into the skin once daily. ??? insulin lispro (HUMALOG) 100 unit/mL injection Active Inject 20 Units into the skin 3 times daily before meals. ??? metformin (GLUCOPHAGE) 500 mg tablet Active Take 500 mg by mouth 3 times daily before meals. ??? oxycodone-acetaminophen (PERCOCET) 5-325 mg per tablet Active Take 1 Tab by mouth every 4 hoursas needed for Pain. Takes 5 tabs daily ??? POTASSIUM CHLORIDE ORAL Active Take 10 mEq by mouth 2 times daily. No current facility-administered medications on file prior to visit. Allergies Allergen Reactions ??? Codeine Nausea Only Per h /p Review of Systems - See HPI Objective: BP 110/50 Physical Exam Genitourinary: There is no rash, tenderness, lesion or injury on the right labia. There is no rash,tenderness, lesion or injury on the left labia. No vaginal erythema, tenderness or bleeding. No signs of injury around the vagina. Vaginal discharge (pH 5.0, clue cells present, no yeast or trichomonas. ) found. Cervix exhibits no motion tenderness, no discharge and no friability. Uterus is not deviated, not enlarged, not fixed and not tender. Assessment: Bacterial vaginosis Plan: There are no diagnoses linked to this encounter. Clindamycin vaginal cream, 1 applicator V qhs for 5 days. Pap not performed today, repeat in 6 months. Return if persistent symptoms. BERE Slater documented in this encounter Plan of Treatment Upcoming Encounters Date Type Department Care Team (Late st Contact Info) Description 05/22/2024 10:00 EDT Office Visit [facility] Foot & Ankle Program - [facility] [address] [place] [address] Edwige Keller DPM [address] [place] [phone] 07/18/2024 13:00 EDT Procedure visit [facility] Women's Services - [facility] [address] [place], [place] [phone] Jessica Murray NP 111 [facility], [address] [place] [phone] documented as of this encounter Procedures Procedure Name Priority Date/Time Associated Diagnosis Comments POCT VAGINAL PH Routine 08/30/2013 16:15 EST Vaginitis and vulvovaginitis, unspecified POCT VAGINAL WET PREP INCLUDES TEJA Routine 08/30/2013 16:15 EST Vaginitis and vulvovaginitis, unspecified documented in this encounter Results * (ABNORMAL) POCT VAGINAL WET PREP INCLUDES TEJA (08/30/2013 16:15 EST) Clue Cells, POC Present(A) Absent POINT OF CARE Trichomonas, POC Absent Absent POINT OF CARE Yeast, POC Absent Absent POINT OF CARE White Blood Cells, POC Absent Absent POINT OF CARE Specimen of unknown material (specimen) 08/30/2013 16:15 EST Kassie Roopa Carreon PA-C POINT OF CARE TEST ORDERABLES POINT OF CARE * (ABNORMAL) POCT VAGINAL PH (08/30/2013 16:15 EST) pH, Vaginal, POC 5.0 POINT OF CARE 08/30/2013 16:1 5 EST Kassie Roopa Carreon PA-C POINT OF CARE TEST ORDERABLES Performing Organization Address [facility]/ZIP Co de Phone Number POINT OF CARE documented in this encounter Visit Diagnoses Diagnosis Vaginitis and vulvovaginitis, unspecified- Primary documented in this encounter Discontinued Medications Medication Sig Discontinue Reason Start Date End Da te pregabalin (LYRICA) 100 mg capsule Take 100 mg by mouth 2 times daily. Discontinued by another clinician 11/29/2010 08/30/2013 pregabalin (LYRICA) 200 mg capsule Take 200 mg by mouth 2 times daily. Discontinued by another clinician 11/29/2010 08/30/2013 Thioctic Acid (ALPHA LIPOIC ACID) 100 mg Cap Take 1 Tab by mouth 2 times daily. Discontinued by another clinician 08/30/2013 documented as of this encounter Care Teams Senior Quality Manager Relationship Specialty Start Date End Date Nanda Read MD PCP - General 05/08/09 05/20/18 documented as of this encounter
--- OUTSIDE RECORDS SUMMARY | 2024-05-15 11:04 | XMS_ITS | Encounter Summary ---
Author Organization [facility] Address [address] [place] [address] Care Team Providers Care Director Clinical Information Services Name Role Phone Nanda Read MD Primary Care Provider Unavailable Reason for Visit * Reason Onset Date Comments Biopsy Results 04/22/2014 Encounter Details Date Type Department Care Team (Late st Contact Info) Description 04/22/2014 Telephone [facility] Women's Services - [address] [phone] Katy Lubin MD 111 [facility], Level [address] [place] [address] Biopsy Results Social History Tobacco [...] Telephone Encounter - Katy Lubin MD - 04/22/2014 1037 EDT Patient called with biopsy results last week. [...] positive she will get repeat colposcopy then. She plans to follow up with our service. documented in this encounter Plan of Treatment Upcoming Encounters Date Type Department Care Team (Late st Contact Info) Description 05/22/2024 10:00 EDT Office Visit [facility] Foot & Ankle Program - [address] [place] [address] Edwige Keller DPM [address] [place] [address] 07/18/2024 13:00 EDT Procedure visit [facility] Women's Services - [facility] [address] [place], [place] [phone] Jessica Murray NP 111 [facility], Level [address] [place] [phone] documented as of this encounter Visit Diagnoses Not on filedocumented in this encounter Care Teams Director Clinical Information Services Relationship Specialty Start Date End Date Nanda Read MD PCP - General 05/08/09 05/20/18 documented as of this encounter
--- OUTSIDE RECORDS SUMMARY | 2024-05-15 11:04 | XMS_ITS | Encounter Summary ---
Author Organization [facility] Address [address] [place] [address] Care Team Providers Care Manager Welding Name Role Phone Nanda Read MD Primary Care Provider Unavailable Reason for Visit * Reason Onset Date Comments Other 09/08/2015 Encounter Details Date Type Department Care Team (Late st Contact Info) Description 09/08/2015 Telephone [facility] Pelvic Medicine and Reconstructive Surgery - Medical Office Building [facility] [address] [place] [phone] Thais Hubbard MD MPH 2 [facility] Medical Office [facility], [address] [phone] Other Social History Tobacco Use Types Packs/Day [...] encounter Miscellaneous Notes * Telephone Encounter - Line, BRENDAN Tang - 09/08/2015 7258 EST Martha calling to review option of Diflucan oral x [address] Boric Acid suppositories. Martha was advised that she would need to decrease her Oxycodone to 3 per day per 's notes. Martha has decided to pay out of pocket for Boric Acid suppositories and will contact [facility] to fill. * Telephone Encounter - Magaly Aden - 09/08/2015 1107 EST RETURNING CALL ABOUT MEDICATION QUESTIONS documented in this encounter Plan of Treatment Upcoming Encounters Date Type Department Care Team (Late st Contact Info) Description 05/22/2024 10:00 EDT Office Visit [facility] Foot & Ankle Program - [address] [address] Edwige Keller DPM [address] [place] [phone] 07/18/2024 13:00 EDT Procedure visit [facility] Women's Services - [facility] [address] [place], [place] [phone] Jessica Murray NP 111 [facility], [facility], [address] [place] [address] documented as of this encounter Visit Diagnoses Not on filedocumented in this encounter Care Teams Manager Welding Relationship Specialty Start Date End Date Nanda Read MD PCP - General 05/08/09 05/20/18 documented as of this encounter
--- OUTSIDE RECORDS SUMMARY | 2024-05-15 11:04 | XMS_ITS | Encounter Summary ---
Author Organization [facility] Address [address] [place] [address] Care Team Providers Care Stone Setter Name Role Phone Nanda eRad MD Primary Care Provider Unavailable Reason for Visit * Reason Onset Date Comments Medication Management 08/25/2015 Encounter Details Date Type Department Care Team (Late st Contact Info) Description 08/25/2015 Telephone [facility] ENGINEERING LABORATORY TECHNICIAN Pelvic Medicine and Reconstructive Surgery - Medical Office [facility] [address] [place] [phone] Thais Hubbard MD MPH 2 [facility], [address] [phone] Medication Management Social History Tobacco Use Types [...] encounter Miscellaneous Notes * Telephone Encounter - Monisha Morton - 08/26/2015 1014 EST Prior encounter was edited. documented in this encounter Plan of Treatment Upcoming Encounters Date Type Department Care Team (Late st Contact Info) Description 05/22/2024 10:00 EDT Office Visit [facility] Foot & Ankle Program - [address] [place] [address] Edwige Keller DPM [address] [place] [phone] 07/18/2024 13:00 EDT Procedure visit [facility] Women's Services - [facility] [address] [place], [place] [phone] Jessica Murray NP 111 [facility], [facility], [address] [place] [phone] documented as of this encounter Visit Diagnoses Not on filedocumented in this encounter Care Teams Stone Setter Relationship Specialty Start Date End Date Nanda Read MD PCP - General 05/08/09 05/20/18 documented as of this encounter
--- OUTSIDE RECORDS SUMMARY | 2024-05-15 11:04 | XMS_ITS | Encounter Summary ---
Author Organization [facility] Address [address] [place] [address] Care Team Providers Care Tunnel Elastic Operator Lockstitch Name Role Phone Nanda Read MD Primary Care Provider Unavailable Encounter Details Date Type Department Care Team (Late st Contact Info) Description 04/08/2014 Results Only [facility] Women's Services - [address] [phone] Taco Cornejo MD 111 [facility], [address] [place] [phone] Social History Tobacco Use Types Packs/Day Years [...] Hospital Foot & Ankle Program - [facility] [place] [address] Edwige Keller DPM [address] [place] [phone] 07/18/2024 13:00 EDT Procedure visit [facility] Women's Services - [facility] [address] [place] [address] Jessica Murray NP 111 [facility], [address] [place] [address] documented as of this encounter Procedures Procedure Name Priority Date/Time Associated Diagnosis Comments SURGICAL PATHOLOGY Routine 04/08/2014 15 :20 EDT documented in this encounter Results * SURGICAL PATHOLOGY (04/08/2014 15:20 EDT) Pathology Report: SURGICAL PATHOLOGY REPORT Reports generated via electronic interface contain original data; however they are lacking the format of the original report. Caution should be taken when reading/interpreting unformatted reports. Name: ? JO JONES ? Accession #: ? [id number] ? : ? 1965 (Age: 48) ??F ? Collect Date: ? 04/08/2014 ? Location: ? OBGYN ? Receive Date: ? 04/09/2014 ? Provider: TACO CORNEJO MD Copy to: ? Final Pathologic Diagnosis: A. ??ENDOCERVIX, CURETTAGE: - Low-grade squamous intraepithelial lesion (AIDEN I). See comment. B. ??CERVIX, 12 O'CLOCK, BIOPSY: - Low-grade squamous intraepithelial lesion (AIDEN I). See comment. Comment: Both specimens (A) and (B) were reviewed at the intradepartmental consultation conference. Document reviewed and electronically signed by: RJ PACHECO MD Report ??Date: 04/11/2014 15:00 By the signature above, the attending physician certifies that he/she has personally conducted a gross and/or microscopic examination of the described specimens and rendered or confirmed the above diagnosis. Specimen(s) Received: A. ?ECC B. ? Cervical biopsy 12 o'clock Clinical History: (+) HR HPV; h/o LEEP/laser in 2008 for persistent LSIL, persistent HPV until 2011 then neg Pap/neg HPV, HPV and normal cytology in 02/2014; clinical diagnosis code: ??795.05 Gross Description: A. ?Received in formalin labelled with proper patient identification (initials P, J) and ECC is an aggregate of scant russell-white tissue and mucus (0.5 x 0.4 x 0.1 cm). Submitted in toto in A1. B. ?Received in formalin labelled with proper patient identification (initials P, J) and B are two russell-white tissues (0.3 x 0.2 x 0.1 cm and 0.4 x 0.3 x 0.3 cm). Entirely submitted in B1. Zahra Johnson 04/09/2014 03:39 PM End of Report [facility] 04/08/2014 15:2 0 EDT 04/09/2014 15:20 EDT Taco Cornejo MD PATHOLOGY ORDERABL ES [facility] [address] [place] [address] documented in this encounter Visit Diagnoses Not on filedocumented in this encounter Care Teams Tunnel Elastic Operator Lockstitch Relationship Specialty Start Date End Date Nanda Read MD PCP - General 05/08/09 05/20/18 documented as of this encounter
--- OUTSIDE RECORDS SUMMARY | 2024-05-15 11:05 | XMS_ITS | Encounter Summary ---
Author Organization [facility] Address [address] [place] [address] Care Team Providers Care Drywall Hanger Framer Name Role Phone Unavailable Primary Care Provider Unavailabl e Encounter Details Date Type Department Care Team (Late st Contact Info) Description 09/27/2005 10:21 EST - 09/27/2005 11:59 EST Hospital Encounter [facility] [address] [place] [address] Khalida Ga MD [address] [place], [place] [phone] Discharge Disposition: Auto Discharge Social History Tobacco Use Types Packs/Day Years Used Date Smoking Tobacco: Never Assessed Sex and Gender Information Value Date Recorded Sex Assigned at Female 02/22/2021 15:01 EDT Gender Identity Female 04/30/2020 8:27 EDT Sexual Orientation Straight 02/22/2021 15 :01 EDT documented as of this encounter Discharge Disposition Disposition Code Departure Means Destination Auto Discharge documented in this encounter Plan of Treatment Upcoming Encounters Date Type Department Care Team (Late st Contact Info) Description 05/22/2024 10:00 EDT Office Visit [facility] Foot & Ankle Program - [address] [place] [address] Edwige Keller DPM [address] [place] [phone] 07/18/2024 13:00 EDT Procedure visit [facility] Women's Services - [facility] [address] [place], [place] [phone] Jessica Murray NP 111 [facility], [address] [place] [address] documented as of this encounter Visit Diagnoses Not on filedocumented in this encounter
--- OUTSIDE RECORDS SUMMARY | 2024-05-15 11:05 | XMS_ITS | Encounter Summary ---
Author Organization [facility] Address [address] [place] [address] Care Team Providers Care Rubber Goods Tester Name Role Phone Nanda Read MD Primary Care Provider Unavailable Encounter Details Date Type Department Care Team (Late st Contact Info) Description 04/05/2010 Results Only [facility] Gynecologic Oncology - [address] [phone] Trevor Burnham MD [address] [place] [address], [address] [place] [phone] Social History Tobacco Use Types Packs/Day Years [...] [facility] Foot & Ankle Program - [place] [address] [place] [address] Edwige Keller DPM [address] [place] [phone] 07/18/2024 13:00 EDT Procedure visit [facility] Women's Services - [address] [address] Jessica Murray NP 111 [facility], [address] [place] [phone] documented as of this encounter Procedures Procedure Name Priority Date/Time Associated Diagnosis Comments CYTOPATHOLOGY Routine 04/05/2010 0:00 EDT documented in this encounter Results * CYTOPATHOLOGY (04/05/2010 0:00 EDT) Pathologist [facility] Pathology Report: CYTOPATHOLOGY REPORT ? Reports generated via electronic interface contain original data; ? however they are lacking the format of the original report. ? Caution should be taken when reading/interpreti ng unformatted reports. ? Name: ? JO JONES ? Accession #: ? [id number] ? : ? 1965 (Age: 44) ??F ?Collect Date: ? 04/05/2010 ? Location: ? [facility] ? Receive Date: ? 04/06/2010 ? Provider: ?TERRELL BURNHAM MD ? Copy to: ? Specimen/Source: ?Pap Test, Cervix, ThinPrep Imaging System with manual ?? evaluation ? Last Menstrual Period: ? Previous Gynecologic Pathology: ? ASC-US: pap 12/2009 ? Treatment History: ? Miscellaneous treatment ? SPECIMEN ADEQUACY ? Satisfactory for Evaluation ? - transformation zone component present ? GENERAL CATEGORIZATION ? Negative for Intraepithelial Lesion or Malignancy ? Document reviewed and electronically signed by: ? Naveen Cohen, CT(ASCP) ? Report Date: ??04/07/2010 14:18 ? End of Report ? [facility] 04/05/2010 04/06/2010 Trevor Burnham MD PATHOLOGY ORDERABLES Performing Organization Address City/State/[facility] [place] [address] documented in this encounter Visit Diagnoses Not on filedocumented in this encounter Care Teams Rubber Goods Tester Relationship Specialty Start Date End Date Nanda Read MD PCP - General 05/08/09 05/20/18 documented as of this encounter
--- OUTSIDE RECORDS SUMMARY | 2024-05-15 11:05 | XMS_ITS | Encounter Summary ---
Author Organization [facility] Address [address] [place] [address] Care Team Providers Care Senior Mainframe Developer Name Role Phone Nanda Read MD Primary Care Provider Unavailable Patrick Clement MD Primary Care Provider [phone] Ruth Munoz APRN Primary Care Provider + Katia Haywood Primary Care Provider Encounter Details Date Type Department Care Team (Late st Contact Info) Description 04/12/2010 Documentation Visit [facility] Bariatric Surgery - [place] [address] [place] [address] Clara Wade, LARRY 61 [facility] [address] [address] Social History Tobacco Use Types Packs/Day Years [...] Description 05/22/2024 10:00 EDT Office Visit [facility] Foot & Ankle Program - [address] [place] [address] Edwige Keller, CLAUS [address] [place] [phone] 07/18/2024 13:00 EDT Procedure visit [facility] Women's Services - [facility] [address] [place], [place] [phone] Jessica Murray NP 111 [facility], [facility], [address] [place] [phone] documented as of this encounter Visit Diagnoses Not on filedocumented in this encounter Care Teams Senior Mainframe Developer Relationship Specialty Start Date End Date Nanda Read MD PCP - General 05/08/09 05/20/18 Patrick Clement MD PCP - General 05/21/18 04/25/19 Ruth Munoz APRN [address] [place] [phone] PCP - General 04/26/19 06/19/23 Katia Haywood [address] [place] [phone] PCP - General Family Medicine - Primary Care 06/20/23 documented as of this encounter
--- OUTSIDE RECORDS SUMMARY | 2024-05-15 11:05 | XMS_ITS | Encounter Summary ---
Author Organization [facility] Address [address] [place] [address] Care Team Providers Care Shank Paperer Name Role Phone Unavailable Primary Care Provider Unavailabl e Encounter Details Date Type Department Care Team (Late st Contact Info) Description 04/28/2009 Orders Only [facility] Laboratory Services - [facility] ([facility] [address] [place] [phone] Nanda Read MD Social History Tobacco Use Types Packs/Day Years [...] Info) Description 05/22/2024 10:00 EDT Office Visit [facility] Foot & Ankle Program - [place] [address] [address] [place], [place] [phone] Edwige Keller DPM [address] [place] [phone] 07/18/2024 13:00 EDT Procedure visit [facility] Women's Services - [address] [address] Jessica Murray, POLO [address] [facility], [facility], [address] [place] [address] documented as of this encounter Procedures Procedure Name Priority Date/Time Associated Diagnosis Comments CYTOPATHOLOGY Routine 04/28/2009 0:00 EDT documented in this encounter Results * CYTOPATHOLOGY (04/28/2009 0:00 EDT) Pathology Report: CYTOPATHOLOGY REPORT ? Reports generated via electronic interface contain original data; ? however they are lacking the format of the original report. ? Caution should be taken when reading/interpreti ng unformatted reports. ? Name: ? JO JONES ? Accession #: ? [id number] ? : ? 1965 (Age: 43) ??F ?Collect Date: ? 04/28/2009 ? Location: ? [facility] ? Receive Date: ? 05/01/2009 ? Provider: ?NANDA NIEMIRA MD ? Copy to: ? Specimen/Source: ?Pap Test, Cervix, ThinPrep Imaging System with manual ?? evaluation ? Last Menstrual Period: ? 6/30/09 ? Previous Gynecologic Pathology: ? HPV ? Other: ? HPVDX - HPV testing requested regardless of diagnosis on current ThinPrep Pap ?? test. ? SPECIMEN ADEQUACY ? Satisfactory for Evaluation ? - transformation zone component present ? GENERAL CATEGORIZATION ? Epithelial Cell Abnormality ? INTERPRETATION ? Squamous Cell Abnormality - Atypical squamous cells, undetermined ? significance (ASC-US). ? EDUCATIONAL NOTES/RECOMMENDATI ONS ? [facility] recommends following the 2006 Consensus Guidelines for the Management of Women with Abnormal Cervical Cancer Screening Tests (JLGTD, ? 2007;11(4):201-222 ). ??Consensus guidelines are available online at ? www.ASCCP.org. ? Document reviewed and electronically signed by: ? Sima Caldwell MD PhD ? Report Date: ??05/07/2009 12:18 ? End of Report ? [facility] 04/28/2009 05/01/2009 Nanda Sade Read MD PATHOLOGY ORDER AMY [facility] [address] [place] [address] documented in this encounter Visit Diagnoses Not on filedocumented in this encounter
--- OUTSIDE RECORDS SUMMARY | 2024-05-15 11:05 | XMS_ITS | Encounter Summary ---
Author Organization [facility] Address [address] [place] [address] Care Team Providers Care Laborer Name Role Phone Nanda Read MD Primary Care Provider Unavailable Encounter Details Date Type Department Care Team (Late st Contact Info) Description 11/17/[address] [address] Nanda Read MD Social History Tobacco Use [...] 05/22/2024 10:00 EDT Office Visit [facility] Foot & Ankle Program - [address] [place] [address] Edwige Keller DPM [address] [place] [phone] 07/18/2024 13:00 EDT Procedure visit [address] [address] Jessica Murray, POLO 111 [facility], [facility], [address] [place] [address] documented as of this encounter Visit Diagnoses Not on filedocumented in this encounter Historical Medications * This list may reflect changes made after this encounter. Medication Sig Dispensed Refills Start Date End Date potassium chloride SA (K-DUR) 20 mEq tablet Take 20 mEq by mouth daily. 01/28/2010 added in this encounter Care Teams Laborer Relationship Specialty Start Date End Date Nanda Read MD PCP - General 05/08/09 05/20/18 documented as of this encounter
--- OUTSIDE RECORDS SUMMARY | 2024-05-15 11:05 | XMS_ITS | Encounter Summary ---
Author Organization [facility] Address [address] [place] [address] Care Team Providers Care Diesel Tractor Engine Mechanic Name Role Phone Unavailable Primary Care Provider Unavailabl e Encounter Details Date Type Department Care Team (Late st Contact Info) Description 10/04/2005 14:10 EST Hospital Encounter [address] [address] Raegan Schwartz MD [address] [address] Discharge Disposition: Auto Discharge Social History Tobacco [...] Description 05/22/2024 10:00 EDT Office Visit [facility] Foot & Ankle Program - [address] [place] [address] Edwige Keller DPM [address] [place] [phone] 07/18/2024 13:00 EDT Procedure visit [facility] Women's Services [address] [place] [address] Jessica Murray NP 111 [facility], [address] [place] [phone] documented as of this encounter Procedures Procedure Name Priority Date/Time Associated Diagnosis Comments FLOW CYTOMETRY Routine 06/24/2009 17:13 EDT HPV DETECTION, HIGH RISK TYPES Routine 04/28/2009 14:06 EDT FL HYSTEROSALPINGOGRAM 5 14:44 EST documented in this encounter Results * FLOW CYTOMETRY (06/24/2009 17:13 EDT) Pathology Report: FLOW CYTOMETRY REPORT ? Reports generated via electronic interface contain original data; ? however they are lacking the format of the original report. ? Caution should be taken when reading/interpreting unformatted reports. ? Name: ? ROBERT, JO A ? Accession #: ? [id number] ? : ? 1965 (Age: 43) ??F ?Collect Date: ? 06/24/2009 17:13 ? Location: ? [facility] ? Receive Date: ? 06/24/2009 20:00 ? Provider: ?NANDA NIEMIRA MD ? Copy to: ? FINAL IMMUNOPHENOTYPIC INTERPRETATION: ? Peripheral blood, flow cytometric analysis: ?- No immunophenotypic evidence of a clonal cell population. ??See comment. ? COMMENT: ? The results of flow cytometry show no immunophenotypic evidence of ? involvement by a clonal lymphoproliferative or myeloproliferative disorder. ??The results are consistent with a mixed population of hematopoietic cells. ? Correlation of these findings with morphologic and clinical data is essential. ? Document reviewed and electronically signed by: ? James Garcia MD ? Report Date: ??06/25/2009 15:16 ? By the signature above, the attending physician certifies that he/she has ? personally conducted an evaluation of the described specimen and rendered or ? confirmed the above diagnosis. ? CLINICAL HISTORY: ? The patient is a 43-year-old female with an elevated white blood cell ? count. ? DESCRIPTION: ? The specimen consists of peripheral blood subjected to erythrocyte lysis by an ammonium chloride-based technique. ??Gating is performed using CD45 ? fluorescence and side scatter. ??Cellular viability (assessed by propidium iodide exclusion) is excellent (100%) among cells with CD45 and side scatter properties typical of lymphocytes and excellent (99%) among CD45+ events overall. ? Expression of the following markers is tested: ??CD2, CD3, CD4, CD5, CD7, CD8, ?? CD10, CD11b, CD11c, CD13, CD14, CD16, CD19, CD20, CD23, CD33, CD34, CD38, CD45, CD56, CD57, CD117, FMC-7, HLA-DR, kappa light chain, lambda light chain. ? A majority of the lymphoid cells are T-lymphocytes (CD2+CD3+CD5+CD7+) with CD4+ and CD8+ subsets represented. ??The remaining lymphocytes are B-lymphocytes (CD19+CD20+) and NK-cells (CD2+CD3-CD16+CD56+). ??Among the B-cells, both kappa+ and lambda+ subsets are represented. ??The remainder of the CD45+ events is ? predominantly of myeloid lineage. ??There is no increase in blasts. ? End of Report ? [facility] 06/24/2009 17:1 3 EDT 06/24/2009 20:00 EDT Nanda Read MD PATHOLOGY ORDER AMY Performing Organization Address [facility] de Phone Number [facility] [address] [place] [address] * HUMAN PAPILLOMA VIRUS DNA TEST (04/28/2009 14:06 EDT) Specimen Description Cervix, ThinPrep vial [facility] Result Positive for one or more of HPV types 16,18,31,33,35 ,39,45,51,52,5 6,58,59, or 68. These high/intermedi ate risk HPV types are associated with dysplasia and some cervical cancers. [facility] Report Status Final 05/14/2009 [facility] 04/28/2009 14:0 6 EDT 05/07/2009 14:06 EDT Nanda Read MD MICROBIOLOGY - GENERAL ORDERABLES Performing Organization Address [facility] de Phone Number [facility] [address] [place] [address] * FL HYSTEROSALPINGOGRAM (10/04/2005 14:44 EST) Anatomical Region Laterality Modality Other 10/04/2005 14:4 4 EST Narrative 05/22/2009 4:41 EDT INFERTILITY EXAMINATION: FLUOROSCOPIC HYSTEROSALPINGOGRAM DATE OF EXAMINATION: 10/04/2005, 1500 hours. TECHNIQUE: Video fluoroscopic hysterosalpingogram performed for the infertility service (Khalida Ga MD). ??Hypaque contrast injected into the uterine cavity via balloon-tipped catheter to assess the uterus as well as the patency of fallopian tubes. CLINICAL INDICATION: Infertility. ??Evaluate tubal patency. FINDINGS: There is partial filling of the fallopian tubes bilaterally which indicates bilateral obstruction. ??There is no evidence of contrast spillage into the peritoneum. ??There is a suggestion of 2 filling defects present in the uterine cavity. IMPRESSIONS: 1. ??Bilateral obstructions of the fallopian tubes. 2. ??Two filling defects within the uterine cavity. /tns Procedure Note Anjelica Patel MD, MD / James Briones MD - 05/22/2009 INFERTILITY EXAMINATION: FLUOROSCOPIC HYSTEROSALPINGOGRAM DATE OF EXAMINATION: 10/04/2005, 1500 hours. TECHNIQUE: Video fluoroscopic hysterosalpingogram performed for the infertility service (Khalida Ga MD). Hypaque contrast injected into the uterine cavity via balloon-tipped catheter to assess the uterus as well as the patency of fallopian tubes. CLINICAL INDICATION: Infertility. Evaluate tubal patency. FINDINGS: There is partial filling of the fallopian tubes bilaterally which indicates bilateral obstruction. There is no evidence of contrast spillage into the peritoneum. There is a suggestion of 2 filling defects present in the uterine cavity. IMPRESSIONS: 1. Bilateral obstructions of the fallopian tubes. 2. Two filling defects within the uterine cavity. /tns Khalida Ga MD IMG FLUOROS COPY ORDERABLES documented in this encounter Visit Diagnoses Not on filedocumented in this encounter
--- OUTSIDE RECORDS SUMMARY | 2024-05-15 11:05 | XMS_ITS | Encounter Summary ---
Author Organization [facility] Address [address] [place] [address] Care Team Providers Care Saxophone Player Name Role Phone Nanda Read MD Primary Care Provider Unavailable Reason for Visit * Reason Comments Follow-up f/u pap Encounter Details Date Type Department Care Team (Late st Contact Info) Description 06/24/2010 9:45 EDT Office Visit [facility] Gynecologic [facility]cology - [address] [address] Trevor Julian MD 111 [facility], [address] [place] [address] Abnormal Pap smear (Primary Dx) Social History Tobacco [...] Sign Reading Time Taken Comments Blood Pressure 110/70 06/24/2010 1009 EDT Pulse - - Temperature - - Respiratory Rate - - Oxygen Saturation - - Inhaled Oxygen Concentration - - Weight 103.4 kg (228 lb) 06/24/2010 1009 EDT Height 159.4 cm (5' 2.75) 06/24/2010 1009 EDT Body Mass Index 40.71 06/24/2010 1009 EDT documented in this encounter Progress Notes * Trevor Julian MD - 06/24/2010 1038 EDT Clive Ramos MD [address] [place] [address] Dear Otto: Just a note to keep you updated to your patient, Martha Benoit. As you will recall, Martha Benoit is a 44 y.o. 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 Pap smear on 12/2009demonstrated ASCUS and pap smear from 04/2010 was negative for any dysplasia or malignancy. . She denies any vaginal clots and she denies any post-coital bleeding. She denies any shortness ofbreath, chest pain, nausea, vomiting, constipation or diarrhea. She denies any abnormal vaginal odor or discharge. She denies any urinary symptoms. Remainder of ROS is negative. Current outpatient prescriptions Medication Sig Dispense Refill ??? pregabalin (LYRICA) 100 mg capsule Take 100 mg by mouth 3 times daily. ??? folic acid (FOLVITE) 1 [...] mg capsule Take 200 mg by mouth daily. ??? oxycodone-acetaminophen (PERCOCET) [...] items are noted in Subjective/HPI Objective: BP 110/70 Ht 1.594 m (5' 2.75) Wt 103.42 kg (228 lb) LMP 06/23/2010 Abdomen: soft, NT,ND, no rebound or guarding, no hepatosplenomegaly Pelvic: Ext: no exophytic lesion; Vagina: no lesions; pap smear was obtained; Uterus:small; Cervix:small; Adnexa:no masses; silvino-urethral and pre-anal area:normal Ext: no CCE Assessment: Today, I explained to Marhta that I am very pleased with how she is doing. Based on her physical exam and lab data, she is currently without any evidence of disease. Previous pap smear results were reviewed with her. I will call her with the pap smear results and I will see her back in Nov 2010. As always, I thank you for allowing me to participate in the care of your patients. I will keep youinformed of her progress. Sincerely, Trevor Julian MD Director, Division of Drawing Supervisor Oncology [facility] CC: NANDA READ MD documented in this encounter Plan of Treatment Upcoming Encounters Date Type Department Care Team (Late st Contact Info) Description 05/22/2024 10:00 EDT Office Visit [facility] - [address] [place] [address] Edwige Keller DPM [address] [place] [address] 07/18/2024 13:00 EDT Procedure visit [facility] Women's Services - [address] [address] Jessica Murray NP 111 [facility], [address] [place] [address] Scheduled Orders Name Type Priority Associated Diagnoses Orde r Schedule PAP TEST- ORDER ONLY Pathology Routine Abnormal Pap Smear Ordered: 06/24/2010 documented as of this encounter Visit Diagnoses Diagnosis Abnormal Pap smear- Primary Other nonspecific abnormal finding documented in this encounter Care Teams Saxophone Player Relationship Specialty Start Date End Date Nanda Read MD PCP - General 05/08/09 05/20/18 documented as of this encounter
--- OUTSIDE RECORDS SUMMARY | 2024-05-15 11:05 | XMS_ITS | Encounter Summary ---
Author Organization [facility] Address [address] [place] [address] Care Team Providers Care Business Administration Program Chair Name Role Phone Nanda Read MD Primary Care Provider Unavailable Encounter Details Date Type Department Care Team (Late st Contact Info) Description 08/07/2002 Results Only [facility] [address] [place] [id number] Nanda Read MD Social History Tobacco Use [...] Description 05/22/2024 10:00 EDT Office Visit [facility] - [address] [place] [address] Edwige Keller DPM [address] [place] [phone] 07/18/2024 13:00 EDT Procedure visit [facility] Women's Services - [address] [id number] Jessica Murray NP 111 [facility], [facility], [address] [place] [phone] documented as of this encounter Procedures Procedure Name Priority Date/Time Associated Diagnosis Comments CYTOPATHOLOGY Routine 08/07/2002 0:00 EDT documented in this encounter Results * CYTOPATHOLOGY (08/07/2002 0:00 EDT) Pathology Report: CYTOPATHOLOGY REPORT Reports generated via electronic interface contain original data; however they are lacking the format of the original report. Caution should be taken when reading/interpreti ng unformatted reports. Name: ? JO JONES ? Accession #: ? [id number] : ? 1965 (Age: 36) ??F ?Collect Date: ? 08/07/2002 Location: ? [facility] ? Receive Date: ? 08/09/2002 Provider: ?NANDAMIKE READ MD Copy to: ? Specimen/Source: ?ThinPrep Pap Test, Source Not Provided Last Menstrual Period: ? SPECIMEN ADEQUACY ? Satisfactory for Evaluation - transformation zone component present GENERAL CATEGORIZATION ? Negative for Intraepithelial Lesion or Malignancy INTERPRETATION ? Reactive cellular changes associated with inflammation present (includes repair). ? Document reviewed and electronically signed by: ? MILKA SOOD MD ? Report Date: ??08/19/2002 15:10 End of Report [facility] 08/07/2002 08/09/2002 Nanda Sade Read MD PATHOLOGY ORDER [facility] [address] [place] [address] documented in this encounter Visit Diagnoses Not on filedocumented in this encounter Care Teams Business Administration Program Chair Relationship Specialty Start Date End Date Nanda Read MD PCP - General 05/08/09 05/20/18 documented as of this encounter
--- OUTSIDE RECORDS SUMMARY | 2024-05-15 11:05 | XMS_ITS | Encounter Summary ---
Author Organization [facility] Address [address] [place] [address] Care Team Providers Care Veterinary Laboratory Diagnostician Name Role Phone Nanda Read MD Primary Care Provider Unavailable Patrick Clement MD Primary Care Provider [phone] Ruth Munoz APRN Primary Care Provider + Katia [place] Primary Care Provider [phone] Encounter Details Date Type Department Care Team (Late st Contact Info) Description 01/27/2010 Documentation Visit [facility] Bariatric Surgery - [place] [address] [place], [place] [id number] [address] Social History Tobacco Use Types Packs/Day Years [...] Concentration - - Weight - - Height 158.3 cm (5' 2.32) 01/27/2010 1100 EDT Body Mass Index - - documented in this encounter Plan of Treatment Upcoming Encounters Date Type Department Care Team (Late st Contact Info) Description 05/22/2024 10:00 EDT Office Visit [facility] Foot & [facility]le Program [place] [address] [place] [address] Edwige Keller, DPM [address] [place] [address] 07/18/2024 13:00 EDT Procedure visit [facility] [address] [place] [address] Jessica Murray, UNDERWRITING INTERN 111 [facility], [facility], [address] [place] [address] documented as of this encounter Visit Diagnoses Not on filedocumented in this encounter Care Teams Veterinary Laboratory Diagnostician Relationship Specialty Start Date End Date Nanda Read MD PCP - General 05/08/09 05/20/18 Patrcik Clement MD PCP - General 05/21/18 04/25/19 Rtuh Munoz, WEB SIZER [address] [place] [address] PCP - General 04/26/19 06/19/23 Katia [place] [address] [place] [address] PCP - General Family Medicine - Primary Care 06/20/23 documented as of this encounter
--- OUTSIDE RECORDS SUMMARY | 2024-05-15 11:05 | XMS_ITS | Encounter Summary ---
Author Organization [facility] Address [address] [place] [address] Care Team Providers Care Customer Sales Distributor Name Role Phone Nanda Read MD Primary Care Provider Unavailable Encounter Details Date Type Department Care Team (Latest Contact Info) Description 12/01/2009 7:58 EST - 12/01/2009 23:59 EST Hospital Encounter [facility] [address] [place] [address] Timothy Alvarado MD [address] [place] [phone] Discharge Disposition: Home or Self Care Social [...] Sig Dispensed Refills Start Date End Date furosemide (LASIX) 40 mg tablet Take 40 mg by mouth daily. Reported on 03/13/2017 glipiZIDE (GLUCOTROL) 10 mg tablet Take 1 Tablet by mouth 2 times daily. metformin (GLUCOPHAGE) 500 mg tablet Take 1 Tablet by mouth 3 times daily before meals. oxyCODONE-acetaminophen (PERCOCET) 10-325 mg per tablet Take 1 Tablet by mouth every 4 hours as needed for Pain. Takes 5 tabs daily ERGOCALCIFEROL (VITAMIN D ORAL) Take 100 mg by mouth every 7 days. 01/28/2010 Exenatide (BYETTA) 10 mcg/0.04 mL PnIj Inject 10 mcg into the skin 2 times daily. 08/11/2014 insulin glargine (LANTUS SOLOSTAR PEN) 300 unit/3 mL InPn Inject 84 Units into the skin once daily. 08/11/2014 insulin regular (HUMULIN R,NOVOLIN R) 100 unit/mL injection Inject into the skin 3 times daily as needed. 0-10 units 01/28/2010 POTASSIUM CHLORIDE ORAL Take 10 mEq by mouth 2 times daily. Reported on 03/13/2017 05/23/2019 potassium chloride SA (K-DUR) 20 mEq tablet Take 20 mEq by mouth daily. 01/28/2010 pregabalin (LYRICA) 200 mg capsule Take 200 mg by mouth 2 times daily. 11/29/2010 08/30/2013 Thioctic Acid (ALPHA LIPOIC ACID) 100 mg Cap Take 1 Tab by mouth 2 times daily. 08/30/2013 documented as of this encounter Discharge Disposition Disposition Code Departure Means Destination Home or Self Snf documented in this encounter Procedure Notes * Inpatient, Physician - 12/02/2009 1525 ESTAssociated Order(s): PATHOLOGY - SCANNED * Inpatient, Physician - 12/02/2009 1337 EST * Inpatient, Physician - 12/02/2009 1337 ESTAssociated Order(s): ORDERS - SCANNED documented in this encounter Miscellaneous Notes * Scanned Note-Null - Inpatient, Physician - 12/02/2009 1337 EST * Scanned Note-Null - Inpatient, Physician - 12/02/2009 1337 EST * Brief Op Note - Inpatient, Physician - 12/02/2009 1337 EST documented in this encounter Plan of Treatment Upcoming Encounters Date Type Department Care Team (Late st Contact Info) Description 05/22/2024 10:00 EDT Office Visit [facility] Foot & Ankle Program - [facility] [address] [facility] [place], [place] [phone] Edwige Keller DPM [address] [facility] [place] [address] 07/18/2024 13:00 EDT Procedure visit [facility] Women's Services - [facility] [address] [place] [address] Jessica Murray, POLO 111 [facility], [facility], [address] [place] [phone] documented as of this encounter Procedures Procedure Name Priority Date/Time Associated Diagnosis Comments PATHOLOGY - SCANNED 12/02/2009 1 5:25 EST ORDERS - SCANNED 12/02/2009 13:3 7 EST GLUCOSE, GLUCOMETER Routine 12/01/2009 8 :51 EST documented in this encounter Results * PATHOLOGY - SCANNED (12/02/2009 15:25 EST) 12/02/2009 15:2 5 EST Narrative 12/02/2009 15:28 EST Ordered by an unspecified provider. Transcriptions Inpatient, Physician - 12/02/2009 15:25 EST Physician Inpatient MD LAB INFO SERVICE AND SUPPORT & PHONE RESULT * ORDERS - SCANNED (12/02/2009 13:37 EST) 12/02/2009 13:3 7 EST Narrative Procedure Note Inpatient, Physician - 12/02/2009 13:37 EST Physician Inpatient MD ADMISSION ORDERAB LES * (ABNORMAL) GLUCOSE, GLUCOMETER (12/01/2009 8:51 EST) Glucose, Fingerstick 187(H) 70 - 100 mg/dl [facility] [employer] [place] [id number] Test Performed by Nursing Services [facility] 12/01/2009 8:51 EST 12/02/2009 6:25 EST Provider Unknown CHEMISTRY & BLOOD GA S ORDERABLES Performing Organization Address City/State/[facility] Co de Phone Number [facility] [address] [place] [address] documented in this encounter Visit Diagnoses Not on filedocumented in this encounter Care Teams Customer Sales Distributor Relationship Specialty Start Date End Date Nanda Read MD PCP - General 05/08/09 05/20/18 documented as of this encounter
--- OUTSIDE RECORDS SUMMARY | 2024-05-15 11:05 | XMS_ITS | Encounter Summary ---
Author Organization [facility] Address [address] [place] [address] Care Team Providers Care Railcar Switcher Name Role Phone Nanda Read MD Primary Care Provider Unavailable Reason for Visit * Reason Comments Abnormal Pap Smear ASCUS pap in 12/2009 Vaginal Bleeding Pt reports she spots in between her menses. Bleeds 3 week out of the month. Encounter Details Date Type Department Care Team (Late st Contact Info) Description 04/05/2010 10:30 EDT Office Visit [facility] Gynecologic Oncology - [address] [phone] Trevor Julian MD 111 [facility], [address] [place] [address] ASCUS on Pap smear (Primary Dx); Irregular menstrual cycle Social History Tobacco Use Types Packs/Day Years Used Date Smoking Tobacco: Never Assessed Sex and Gender Information Value Date Recorded Sex Assigned at Female 02/22/2021 15:01 EDT Gender Identity Female 04/30/2020 8:27 EDT Sexual Orientation Straight 02/22/2021 15 :01 EDT documented as of this encounter Last Filed Vital Signs Vital Sign Reading Time Taken Comments Blood Pressure 118/76 04/05/2010 1029 EDT Pulse - - Temperature - - Respiratory Rate - - Oxygen Saturation - - Inhaled Oxygen Concentration - - Weight 102.5 kg (226 lb) 04/05/2010 1029 EDT Height 157.5 cm (5' 2) 04/05/2010 1029 EDT Body Mass Index 41.34 04/05/2010 1029 EDT documented in this encounter Progress Notes * Trevor Julian MD - 04/05/2010 1124 EDT Clive Ramos MD [address] [place] [address] Dear Otto: Just a note to keep you updated to your patient, Martha Benoit. As you will recall, Martha Benoit is a 44 y.o. 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 Pap smear on 12/2009demonstrated ASCUS Of note, she states that she has been having irregular menses for after her LEEP. She states that she has vaginal spotting one week prior to her menses and one week after her menses. She denies any clots and she denies any post-coital bleeding. [...] items are noted in Subjective/HPI Objective: BP 118/76 Ht 1.575 m (5' 2) Wt 102.513 kg (226 lb) LMP 03/25/2010 Pelvic: external: no lesions; vagina: no lesions; cervix: well healed; uterus is small; no adnexal masses; pap smear was obtained; Assessment: Today, I had a long discussion with Martha with regards to the following issues: 1) h/o LGSIL. I explained to Martha that we will wait for the pap smear results to determine the necessary follow up program; however, at this time, there are no gross abnormalities of the vagina or cervix 2) irregular menses; I explained to Martha that I am unclear as to the etiology of her irregular menses. I explain to her that it could be related to hormonal issues, or other pathology of the endocervical or endometrial canal. I explained to her that it is possible that she may need an endometrial biopsy if the irregular menses continue. Martha is frustrated but is agreeable to the plan described above. As always, I thank you for allowing me to participate in the care of your patients. I will keep youinformed of her progress. Sincerely, Trevor Julian MD Director, Division of Reforestation Worker Oncology [facility] CC: NANDA READ MD documented in this encounter Plan of Treatment Upcoming Encounters Date Type Department Care Team (Late st Contact Info) Description 05/22/2024 10:00 EDT Office Visit [facility] Foot & Ankle Program - [address] [place] [address] Edwige Keller DPM [address] [place] [phone] 07/18/2024 13:00 EDT Procedure visit [facility] Women's Services - [address] [phone] Jessica Murray NP 111 [facility], [address] [place] [phone] Scheduled Orders Name Type Priority Associated Diagnoses Orde r Schedule PAP TEST- ORDER ONLY Pathology Routine ASCUS on PAP Smear Ordered: 04/05/2010 documented as of this encounter Visit Diagnoses Diagnosis ASCUS on Pap smear- Primary Other nonspecific abnormal finding Irregular menstrual cycle documented in this encounter Care Teams Railcar Switcher Relationship Specialty Start Date End Date Nanda Read MD PCP - General 05/08/09 05/20/18 documented as of this encounter
--- OUTSIDE RECORDS SUMMARY | 2024-05-15 11:05 | XMS_ITS | Clinical Summary ---
Author Organization [facility] Address [facility] [place] [address] Care Team Providers [employer] Counsel[employer] Name Role Phone Ruth Munoz APRN Primary Care Provider + Allergies No known active allergies Medications Medication Sig Dispensed Refills Start Date End Date Status lidocaine (LIDODERM) 5 %(700 mg/patch) Place 1 patch onto the skin every 12 hours as needed. Active gabapentin (NEURONTIN) 300 mg Capsule Take 600 mg by mouth nightly. Active oxyCODONE-acetami nophen (PERCOCET) 10-325 mg Tablet Take 1 tablet by mouth 6 times daily. 06/12/2017 Active SF 5000 PLUS 1.1 % Cream BRUSH ON TEETH ONCE DAILY DIRECTED 11 06/26/2018 Active nystatin (MYCOSTATIN) Powder 1 Application as needed. 2 04/24/2019 Active omeprazole (PRILOSEC) 20 mg Capsule, Delayed Release(E.C.)Jocelyne cations:Status post bariatric surgery,Intestina l malabsorption, unspecified type TAKE ONE CAPSULE BY MOUTH EVERY DAY 30 MINUTES PRIOR TO BREAKFAST ON AN EMPTY STOMACH 90 capsule 3 09/11/2019 Active glipiZIDE XL (Glucotrol XL) 10 mg Tablet Extended Rel 24 hr TAKE ONE TABLET BY MOUTH TWICE A DAY 180 tablet 3 11/23/2020 Active freestyle lite strips 1 each by Other route 4 times daily. DX: E11.40, E11.65 400 each 3 2020 Active UNABLE TO FIND Med Name: [place] vitamins take one tablet by mouth twice daily Active baclofen (LIORESAL) 20 mg Tablet Take 20 mg by mouth 4 times daily. Active cyclobenzaprine (Flexeril) 10 mg Tablet Take 10 mg by mouth nightly. Active fluconazole (Diflucan) 150 mg Tablet Take 1 tablet by mouth as needed (for yeast infection). Once per day 3 tablet 3 05/31/2021 Active halcinonide (Halog) 0.1 % external solution Apply once to twice a day as needed to scalp. 60 mL 3 03/24/2022 Active betamethasone, augmented, (DIPROLENE) 0.05 % Lotion Apply to affected areas on the scalp daily to twice a day. 60 mL 1 03/24/2022 Active estradioL (ESTRACE) 0.01 % (0.1 mg/gram) Cream Insert 1 gram vaginally 3 times weekly for 3 weeks. Stop 3 days prior to colposcopy. Start:05/30/22 End:06/20/22 03/28/2022 Active Flintstones Complete, iron, 18 mg iron Tablet, Chewable Take 1 tablet by mouth 2 times daily. 04/16/2022 Active metFORMIN (Glucophage) 500 mg Tablet Take 500 mg by mouth 3 times daily. 04/27/2022 Active triamcinolone (Kenalog) 0.1 % Cream APPLY TOPICALLY TO THE AFFECTED AREA TWO TIMES A DAY NEEDED 454 g 07/29/2022 Active FreeStyle Lite Meter Kit 1 each by [facility]Non-Drug; Combo Route) route daily. 1 each 11/01/2022 Active cyanocobalamin, vitamin B-12, (Vitamin B-12) 500 mcg tablet Take 500 mcg by mouth daily. 03/14/2023 Active Invokana 300 mg tablet TAKE ONE TABLET BY MOUTH EVERY DAY 90 tablet 3 05/08/2023 Active insulin aspart protamine-insulin aspart 70/30 (novoLOG Mix 70-30 FlexPen) 100 unit/mL (70-30) Insulin Pen INJECT 20-30 UNITS UNDER THE SKIN THREE TIMES A DAY 60 mL 3 01/15/2024 Active levothyroxine (Synthroid) 25 mcg tablet Take 1 tablet by mouth daily. 90 tablet 02/12/2024 Active ergocalciferoL, vitamin D2, (vitamin D2) 50,000 unit capsule Take 1 capsule by mouth once a week. 12 capsule 3 03/11/2024 Active secukinumab (Cosentyx Pen) 150 mg/mL Pen Injector Inject 300 mg subcutaneously every 28 days. 2 mL 11 03/29/2024 Active Active Problems Problem Noted Date Diagnosed Date Psoriasis 03/26/2024 Iron deficiency 11/08/2015 Memory loss 11/08/2015 Gastroesophageal reflux 11/02/2015 Overview (11/17/2015): A. EGD done on 07/21/10: small hiatus hernia was present extending from 39 cm to 36 cm. LA Grade A (one or more mucosal breaks less than 5 mm, not extending between tops of 2 mucosal folds) esophagitis with no bleeding was found 36 cm from the incisors. The middle third of the esophagus was normal. The upper third of the esophagus was normal. Path: Gastric antrum, biopsy: Gastric antrum-type mucosa with reactive gastropathy and intestinal metaplasia. B. EGD on 11/16/11: Normal examined duodenum. 4 small non-bleeding antral erosions small sliding hiatal hernia previously identified esophagitis has healed C. EGD done on 11/04/15: Normal esophagus. Erosive gastropathy. Findings unchanged from previous ??endoscopies. I don't think these non specific erosions should preclude bariatric surgery. Normal examined duodenum. Path: Endoscopic biopsy - Gastric antral gland mucosa with nonspecific reactive gastropathy and??focal intestinal metaplasia. No H. pylori-like microorganism is seen. Seborrheic keratosis 12/05/2014 Unspecified hypothyroidism 05/30/2012 Type II or unspecified type diabetes mellitus with renal manifestations, uncontrolled(250.42) 05/09/2011 Peripheral autonomic neuropathy due to diabetes mellitus 05/09/2011 Peripheral neuropathy-severe generalized 010 Overview (07/18/2011): severe generalized peripheral neuropathy & Lt foot/toe drop 02/23/10: nerve conduction studies showed severe generalized peripheral neuropathy. In addition, there is active denervation across multiple root and peripheral nerve distribution in the left lower extremity. Dr. uJlio Cesar Wright suggested lumbar puncture in [place] -if high protein, may need IVIG therapy or try two days of high dose steroid therapy Preoperative Class III obesi ty BMI 43, S/P gastric bypass 01/04/16 10/23/2009 Overview (01/25/2016): Bariatric Surgery Program 1. Attended Introduction to the [facility] Bariatric Surgery Program seminar, a comprehensive two hour meeting that provides a program overview, education on bariatric surgeries offered at [facility], risks and benefits, as well as patient expectations and follow up: 08/05/14. [facility] BSP Educational seminars viewed: 3. Grades on post-testin-100%. The BSP Educational Handbook is provided at preoperative visit #1. 2. Pre-operative programmatic evaluations required: PCP evaluation and letter of support to proceed with surgery, [facility]SP labwork (can be done on day of visit #1) and psychological evaluation- minimum of 2 visits. 3. Bariatric Surgery Program evaluations with RD and SENIOR MARKETING MANAGER: 11/03/15 4. Weight history: 198 pounds on 08/25/04, 207 pounds on 03/20/09, 249 pounds on 07/01/14, 253 pounds on 02/20/15 5. Gallbladder status: 6. Insurer specific requirements: [place] medicaid- 3 months of supervised counseling 7. BSP Team meeting discussion: no Post surgery course: 1. Admitted to [facility] on 01/24/16 with nausea and vomiting, failure to progress diet. Transfer to [facility] on 01/25/16 Vitamin D deficiency 04/22/2009 Overview (12/28/2010): Lab 04/30: 25vitamin D = 19 -> started on vitamin D 50,000 iu weekly Lab 10/2009: 25vitamin D = 35-> increased to 2x/week for 2-3 months to keep it in mid range soon-in preparation for gastric bypass in the near future. 02/19/10: 25vitamin D = 51 Diabetic retinopathy & neuropathy 10/23/1981 Overview (12/28/2010): +DM for 10+ years -on insulin since 2006, +severe diabetic neuropathy and mild retinopathy A1c 8.3%(02/19/10)<-8.8%(10/2009)<-8.1%(05/31)<-8.9%(04/30)<-10.4%(10/08/08) <-12.7(04/29)<-11.6%(12/28)<-10.6(06/29)<-9.7% (04/28) Normal c-peptide 3.3 -> 1.5 (02/19/10) icd 9 357.2 History of kidney stones-bilateral Overview (07/22/2012): 1-2 mm Nov 2000 - [facility] Oct 2000 - stent Dec, Aug, March - distal ureteral stone extraction Jul - [facility] - [place] Chronic foot pain-s/p heel spur surgeries Resolved Problems Problem Noted Date Diagnosed Date Resolved Date Surgery follow-up 07/11/2017 02/19/2018 Abdominal pannus 04/28/2017 02/19/2018 Nausea and vomiting in adult patient 01/27/2016 07/05/2016 Increased PTH level 11/08/2015 02/20/20 18 Less than ideal adherence to medication regimen and general health care 11/08/2015 12/17/19 16 Intestinal metaplasia of gas tric mucosa-lower stomach-antrum 07/21/2010 11/17/2015 Encounters Date Type Department Care Team Description 05/07/2024 Specialty [place] [address] Rafal Frye, [facility] Refill Coordination - 28 day recurrence (secukinumab) for Dermatology 05/03/2024 9:00 AM EDT TH Visit (TeleHealth) [place] [address] Judith Reinoso MD Type 2 diabetes, controlled, with neuropathy; Vitamin D deficiency; Hypothyroidism, acquired; History of gastric bypass; Dyslipidemia 04/15/2024 Specialty [place] [address] Sukhdev Ga, [facility] Refill Coordination - 28 day recurrence (secukinumab) for Dermatology 04/11/2024 8:30 AM EDT TH Visit (TeleHealth) [place] [address] Wyatt Higgins MD Hereditary sensorimotor neuropathy; Type 2 diabetes mellitus with diabetic neuropathy, unspecified whether custodial insulin use; Peripheral autonomic neuropathy due to diabetes mellitus 04/04/2024 Tele[place] [address] Madelin Caldwell RN 04/04/2024 [place] [address] Wyatt Higgins MD 03/29/2024 10:45 AM EDT TH Visit (TeleHealth) Dermatology at [address] [address] Galdino Gilliland MD Psoriasis 03/29/2024 Refill Dermatology at [address] [address] Lydia Funes RN 03/26/2024 Specialty [place] [address] Sravanthi Cardoza RPH Refill Coordination - 28 day recurrence (secukinumab) for Dermatology 03/10/2024 Refill Endocrinology at [place] [phone] Judith Reinoso MD from Last 3 Months Family History Medical History Relation Comments Diabetes Father Diabetes Mother * Other congenital malfo rmation in her son/kidney stone Diabetes Other High Cholesterol Other Hypertension Other Obesity Other Psoriasis Other Stroke Other Relation Status Comments Father Alive Mother Other Social History Tobacco Use Types Packs/Day Years Used Date Smoking Tobacco: Never Smokeless Tobacco: Never Alcohol Use Standard Drinks/Week Comments No 0 (1 standard drink = 0.6 oz pur e alcohol) Sex and Gender Information Value Date Recorded Sex Assigned at Not on file Gender Identity Female 08/26/2018 10:19 PM EST Sexual Orientation Not on file Last Filed Vital Signs Vital Sign Reading Time Taken Comments Blood Pressure 120/80 05/03/2024 9:06 AM EDT Pulse 70 05/03/2024 9:06 AM EDT Temperature 36.3 ??C (97.4 ??F) 08/05/2021 11:48 AM E DT Respiratory Rate 12 05/03/2024 9:06 AM EDT Oxygen Saturation 96% 06/07/2022 12:46 PM EDT Inhaled Oxygen Concentration - - Weight 70.3 kg (155 lb) 05/03/2024 9:06 AM EDT Height 160 cm (5' 3) 05/03/2024 9:06 AM EDT Body Mass Index 27.46 05/03/2024 9:06 AM EDT Plan of Treatment Upcoming Encounters Date Type Department Care Team (Late st Contact Info) Description 02/19/2025 9:00 AM EDT TH Visit (TeleHealth) [place] [address] Wyatt Higgins MD [facility] [place] [address] Health Maintenance Due Date Last Done Comments CT Colonography 1965 FIT DNA 1965 FIT 1965 Sigmoidoscopy 1965 Pneumococcal Vaccine: At-Ris k 5-64yrs (1 of 2 - PCV) 1969 DM Opthalmology Exam 1973 HIV screen 1981 Hepatitis C Screening 1981 Tdap adult 1982 Tetanus vaccine 1982 HPV test 1993 PAP Smear 1993 Breast Cancer Share Decision Needed 2003 Breast Cancer screening 2003 Zoster vaccine (1 of 2) 2013 DM Creatinine yearly 06/07/2023 06/07/2022, 05/31/2021, 02/05/2019, Additional history exists DM Urine Microalbumin yearly 06/07/2023, 05/31/2021, 02/05/2019, Additional history exists Covid-19 Vaccine ( - 2022-2 4 season) 2023 DM Hemoglobin A1c 6 month 08/23/20232022, 06/07/2022, 05/31/2021, Additional history exists Influenza (Flu) vaccine (1 o f 1 - Influenza standard series) 06/23/2024 Lipid Screening 06/07/2027 06/07/2022, 08/0 06/2021, 02/05/2019, Additional history exists Colonoscopy 08/05/2031 08/05/2021, 08/05/2021 Colorectal Cancer Screening 08/05/2031 Sigmoidoscopy (10 year) with FIT yearly 08/05/2031 08/05/2021, 08/05/2021 Procedures Procedure Name Priority Date/Time Associated Diagnosis Comments LAB SCAN 04/08/2024 12:00 AM EDT HC HEMOGLOBIN A1C Routine 02/20/2023 1:0 2 PM EDT Type 2 diabetes, controlled, with neuropathy History of gastric bypass Peripheral autonomic neuropathy due to diabetes mellitus LIPID PANEL (REFLEX DIRECT LDL) Routine 06/07/2022 11:47 AM EDT Hypothyroidism, acquired Type 2 diabetes, controlled, with neuropathy History of gastric bypass Vitamin D deficiency COMPREHENSIVE METABOLIC PANEL (NON-FASTING) Routine 06/07/2022 11:47 AM EDT Hypothyroidism, acquired Type 2 diabetes, controlled, with neuropathy History of gastric bypass Vitamin D deficiency HC CREATININE - NON BLOOD Routine 06/07/2022 11:32 AM EDT Hypothyroidism, acquired Type 2 diabetes, controlled, with neuropathy History of gastric bypass Vitamin D deficiency COLONOSCOPY Routine 08/05/2021 11:09 AM EDT from Last 3 Months or Most Recently Relevant to Health Maintenance Results * Scan Doc: Lab (04/08/2024 12:00 AM EDT) Narrative 04/08/2024 12:00 AM EDT Ordered by an unspecified provider. Scanning Provider MEDIA MGR SCAN EXT O RDR/RSLT * (ABNORMAL) Hemoglobin A1c (02/20/2023 1:02 PM EDT) Hemoglobin A1C 6.4(H) 4.3 - 5.6 % [facility] Comment: Reference Range: 4.3 - 5.6% 5.7 - 6.4% - Increased Risk of Developing Diabetes Mellitus >= 6.5% - Consistent with diagnosis of Diabetes Mellitus In the absence of hyperglycemia (i.e. plasma glucose > 200 mg/dL) or classic symptoms of hyperglycemia a repeat measurement of HbA1c should be performed on a separate sample to confirm the diagnosis. Diagnosis and Classification of Diabetes Mellitus, Diabetes Care 2013; 36: Suppl. 1, S67-74 Est Avg Gluc 137 mg/dL [facility] Comment: eAG equivalents for HbA1c percentages: HbA1c(%) ?eAG(mg/dL) 6.0 ?126 6.5 ?140 7.0 ?154 7.5 ?169 8.0 ?183 8.5 ?197 9.0 ?212 9.5 ?226 10.0 ? 240 Limitations: The eAG calculation has not been validated on women, individuals below 18 years old and above 70 years old, and individuals with hemoglobinopathies. Additional resources are available on the ADA website. Maurice GODINEZ, Marion J, Miriam R, et al. ??Translating the A1C assay into estimated average glucose values. ??Diabetes Care 2008:31(8):4806-0602. Blood 02/20/2023 1:02 PM EDT 02/20/2023 1:10 PM EDT Narrative Resulting Agency Comment Spec In Lab Judith Reinoso MD CHEMISTRY ORDERAB LES [facility] [place] [address] * Lipid Panel (Reflex Direct LDL) (06/07/2022 11:47 AM EDT) Chol, Total 207 mg/dL [facility] Comment: Lower Risk: <200 mg/dL Average Risk: 200-239 mg/dL Higher Risk: >oi=412 mg/dL Triglycerides 163 mg/dL [facility] Comment: Average Risk/Lower Risk: <150 mg/dL Borderline High Risk: 150-199 mg/dL High Risk: 200-499 mg/dL Very High Risk: >av=187 mg/dL HDL 50 mg/dL [facility] Comment: Males: ?? Higher Risk: <40 mg/dL Females: ?? Higher Risk: <50 mg/dL LDL Cholesterol 124 mg/dL [facility] Comment: Lowest Risk: <100 mg/dL Lower Risk: 100-129 mg/dL Borderline High Risk: 130-159 mg/dL High Risk: 160-189 mg/dL Very High Risk: >pn=053 mg/dL Chol/HDL Ratio 4.1 ratio [facility] Lipid Interpretation See Note [facility] Comment: Lipid management should be guided by a patient? s ASCVD risk, goals and preferences. ACC/AHA Guidelines recommend high intensity statin if clinical ASCVD or LDL greater than or equal to 190 mg/dL. http://Meilapp.com.com/SKI-TSR-Xnzalzkmn Adults aged 40-75 with LDL 70-189 mg/dL should have their 10 year ASCVD risk estimated with the ACC/AHA ASCVD risk stick feeder http://tools.acc.org/LHPVB-Kyfz-Ppphxygrh/ Statin should be discussed if risk greater than or equal to 7.5% in non-diabetics. With diabetes, moderate intensity statin is recommended if risk less than 7.5%, high intensity if risk greater than or equal to 7.5%. Annual lipid monitoring on statins is not necessary. Evaluate secondary causes of Triglycerides greater than 500 mg/dL or LDL greater than 190 mg/dL: See table 6 of ACC/AHA Guideline. Lifestyle modification is a critical component of ASCVD risk reduction. Blood 06/07/2022 11:4 7 AM EDT 06/07/2022 11:54 AM EDT Narrative Resulting Agency Comment Spec In Lab Judith Reinoso MD CHEMISTRY ORDERAB LES [facility] [place] [address] * (ABNORMAL) Comprehensive metabolic panel (non-fasting) (06/07/2022 11:47 AM EDT) Glucose Lvl 74 65 - 199 mg/dL [facility] Comment:Diabetes: >=200 mg/d L plus symptoms BUN 10 8 - 18 mg/dL [facility] Creatinine 0.40(L) 0.70 - 1.20 mg/dL [facility] Sodium 144 135 - 145 mmol/L [facility] Potassium 3.8 3.5 - 5.0 mmol/L [facility] Comment: Please note: ??Patients with WBC >100,000 may have falsely elevated Potassium levels. ??For accurate Potassium quantification in these patients send serum separator tube (gold top) for subsequent determinations. ??Contact the Clinical Chemistry Laboratory if there are any questions. Chloride 106 98 - 107 mmol/L [facility] CO2 26 22 - 31 mmol/L [facility] Anion Gap 12 5 - 15 mmol/L [facility] Calcium 9.4 8.5 - 10.5 mg/dL [facility] Total Protein 7.6 6.1 - 8.0 g/dL [facility] Albumin 4.6 3.2 - 5.2 g/dL [facility] AST 19 0 - 30 unit/L [facility] ALT 17 0 - 30 unit/L [facility] Alk Phos 94 35 - 105 unit/L [facility] Total Bilirubin 0.3 0.2 - 1.3 mg/dL [facility] Estimated GFR 115 >=60 mL/min/1. 73 m?? [facility] Comment: This patient's estimated GFR was calculated using the 2020 CKD-EPI equation. The estimated GFR can vary from the measured GFR by up to 30% in the absence of rapidly changing kidney function. Assessment of the estimated GFR is not appropriate when creatinine concentrations are rapidly changing. For clinical situations in which a more precise estimate of GFR is necessary, consider alternative methods of GFR estimation such as a 24-hour urine creatinine clearance. Assignment of CKD stage 1-5 for patients with an eGFR near the transition point between stages may be based on clinical assessment of muscle mass and symptoms in addition to eGFR. Blood 06/07/2022 11:4 7 AM EDT 06/07/2022 11:54 AM EDT Narrative Resulting Agency Comment Spec In Lab Judith Reinoso MD CHEMISTRY ORDERAB LES [facility] [place] [address] * U Albumin/Cre Ratio (06/07/2022 11:32 AM EDT) Alb/Cr Ratio, Random 11 0 - 29 mcg/mg Cr [facility] Comment: Reference Ranges: <30 mcg/mg: Normal 30-300 mcg/mg: Moderately increased albuminuria.* >300 mcg/mg: Severely increased albuminuria. * ACEI or ARB recommended if diabetic; suggested if BP>130/80 without diabetes ACEI or ARB strongly recommended if diabetic; recommended if BP>130/80 without diabetes Two of three specimens collected within a 3 to 6 month period should be abnormal before considering a patient to have albuminuria. Transient causes: exercise, fever, infection, CHF, marked hyperglycemia or hypertension. Persistent albuminuria indicates CKD and is an independent risk factor for ASCVD. ADA Standards of Medical Care in Diabetes-2016; KDIGO: Kidney International Supplements (2012) 2, 357? 362 U Albumin Conc, Random 5.2 mg/L [facility] U Creatinine 48 mg/dL [facility] Urine 06/07/2022 11:3 2 AM EDT 06/07/2022 11:43 AM EDT Narrative Resulting Agency Comment Spec In Lab Judith Reinoso MD URINE ORDERABLES [facility] [place] [address] * COLONOSCOPY (08/05/2021 11:09 AM EDT) COLONOSCOPY [facility] Endoscopy Procedure Date: 08/05/2021 11:09 AM ? Patient Name: Martha Benoit ? N: [id number] ? Date of : 1965 ? Age: 55 ? Order #: [id number] ? Instrument Name: [id number] ? Procedure: ? Colonoscopy Indications: ? Screening in patient at increased ? risk: Family history of 1st-degree ? relative with colorectal cancer ? before age 60 years Patient Profile: ? This is a 55 year old female. Providers: ? Anam Stuart MD, Sung Porter ? BRENDAN Aquino, Liza Mccarty MD: ?Ruth Munoz Medicines: ? Monitored Anesthesia Care Complications: ? No immediate complications. Procedure: ? Pre-Anesthesia Assessment: ? - Prior to the procedure, a History ? and Physical was performed, and ? patient medications and allergies ? were reviewed. The patient's ? tolerance of previous anesthesia was ? also reviewed. The risks and benefits ? of the procedure and the sedation ? options and risks were discussed with ? the patient. All questions were ? answered, and informed consent was ? obtained. Prior Anticoagulants: The ? patient has taken no previous ? anticoagulant or antiplatelet agents. ? ASA Grade Assessment: III - A patient ? with severe systemic disease. After ? reviewing the risks and benefits, the ? patient was deemed in satisfactory ? condition to undergo the procedure. ? The procedure, indications, benefits, ? risks and alternatives were explained ? to the patient. Specifically ? discussed were potential ? complications including, but not ? limited to, bleeding, perforation, ? infection, missing a cancer, and ? adverse medication reactions. The ? patient was placed in the left ? lateral decubitus position, and a ? digital rectal exam was performed. ? The Colonoscope was inserted in the ? anus and under direct visualization, ? advanced to the terminal ileum, with ? identification of the appendiceal ? orifice and IC valve. Careful ? inspection was made as the ? colonoscope was withdrawn. The ? colonoscopy was performed without ? difficulty. The patient tolerated the ? procedure well. The quality of the ? bowel preparation was evaluated using ? the BBPS ([place] Bowel Preparation ? Scale) with scores of: Right Colon = ? 0 (unprepared, mucosa not seen due to ? solid stool that cannot be cleared or ? unseen proximal colon segment in a ? colonoscopy aborted due to inadequate ? bowel prep), Transverse Colon = 1 ? (portion of mucosa seen, but other ? areas not well seen due to staining, ? residual stool and/or opaque liquid) ? and Left Colon = 1 (portion of mucosa ? seen, but other areas not well seen ? due to staining, residual stool ? and/or opaque liquid). The total BBPS ? score equals 2. The quality of the ? bowel preparation was inadequate. The ? terminal ileum, the appendiceal ? orifice and the rectum were ? photographed. ? Findings: ? The perianal and digital rectal examinations were ? normal. ? A moderate amount of stool was found in the entire ? colon, precluding visualization. Lavage of the area ? was performed using sterile water, resulting in ? incomplete clearance with continued poor ? visualization. ? Moderate Sedation: ? Not applicable - See Anesthesia documentation Impression: ?- Preparation of the colon was ? inadequate. ? - Stool in the entire examined colon. ? In particular the right colon was ? obscured by adherent bilious stool. ? - No specimens collected. Recommendation: ?- Repeat colonoscopy at appointment ? to be scheduled because the bowel ? preparation was poor. ? Attending Participation: ? I personally performed the entire procedure. ? Dr. Cash Stuart ___ Anam Stuart MD 08/05/2021 11:55:47 AM Number of Addenda: 0 Note Initiated On: 08/05/2021 11:09 AM PROVATION 08/05/2021 11:0 9 AM EDT Ruth Munoz APRN GENERAL SURGICAL ORDERABLES PROVATION from Last 3 Months or Most Recently Relevant to Health Maintenance Advance Directives Documents on File Type Date Recorded Patient Emergency Department Clinician Expl anation Advance Directives and Livin g Will 11/24/2015 5:11 PM FINANCIAL DPOA * Full Code (Latest Code Status on File) Date Activated Date Inactivated Comments 06/29/2017 3:58 PM 06/30/2017 2:22 PM Question Answer Comments Does patient have capacity to make decision: Yes * Full Code Date Activated Date Inactivated Comments 06/29/2017 2:11 PM 06/29/2017 3:58 PM Question Answer Comments Does patient have capacity to make decision: Yes * Full Code Date Activated Date Inactivated Comments 01/25/2016 2:28 PM 01/27/2016 3:10 PM Question Answer Comments Does patient have capacity to make decision: Yes * Full Code Date Activated Date Inactivated Comments 01/04/2016 5:27 PM 01/06/2016 1:00 PM Question Answer Comments Does patient have capacity to make decision: Yes * Full Code Date Activated Date Inactivated Comments 01/04/2016 11:36 AM 01/04/2016 5:27 PM Question Answer Comments Does patient have capacity to make decision: Yes Care Teams [employer] Counselor Relationship Specialty Start Date End Date Ruth Munoz APRN [address] [place] [address] PCP - General Family Medicine 02/05/19
--- OUTSIDE RECORDS SUMMARY | 2024-05-15 11:05 | XMS_ITS | Encounter Summary ---
Author Organization [facility] [place] [address] Care Team Providers Care Roll Clamp Operator Name Role Phone Ruth Munoz LARRY Primary Care Provider + Encounter Details Date Type Department Care Team (Late st Contact Info) Description 03/29/2024 Refill Dermatology at [address] [phone] Lydia Funes, RN Social History Tobacco Use Types Packs/Day Years Used Date Smoking Tobacco: Never Smokeless Tobacco: Never Alcohol Use Standard Drinks/Week Comments No 0 (1 standard drink = 0.6 oz pur e alcohol) Sex and Gender Information Value Date Recorded Sex Assigned at Not on file Gender Identity Female 08/26/2018 10:19 PM EST Sexual Orientation Not on file documented as of this encounter Plan of Treatment Upcoming Encounters Date Type Department Care Team (Late st Contact Info) Description 02/19/2025 9:00 AM EDT TH Visit (TeleHealth) [place] [phone] Wyatt Higgins MD [facility] [place] [address] documented as of this encounter Visit Diagnoses Not on filedocumented in this encounter Care Teams Roll Clamp Operator Relationship Specialty Start Date End Date Ruth Munoz, [employer] HELPER [address] [place] [address] PCP - General Family Medicine 02/05/19 documented as of this encounter
--- OUTSIDE RECORDS SUMMARY | 2024-05-15 11:05 | XMS_ITS | Encounter Summary ---
Author Organization [facility] Address [address] [place] [address] Care Team Providers Care Robotics Application Engineer Name Role Phone Nanda Read MD Primary Care Provider Unavailable Encounter Details Date Type Department Care Team (Late st Contact Info) Description 07/11/2001 Results Only [facility] - [facility] conversion [address] [place] [phone] Nanda Read MD Social History Tobacco Use [...] 05/22/2024 10:00 EDT Office Visit [facility] Foot & Ankle Program - [address] [place] [address] Edwige Keller DPM [address] [place] [phone] 07/18/2024 13:00 EDT Procedure visit [facility] Women's Services - [address] [phone] Jessica Murray NP 111 [facility], [facility], [address] [place] [phone] documented as of this encounter Procedures Procedure Name Priority Date/Time Associated Diagnosis Comments CYTOPATHOLOGY Routine 07/11/2001 0:00 EDT documented in this encounter Results * CYTOPATHOLOGY (07/11/2001 0:00 EDT) Pathology Report: CYTOPATHOLOGY REPORT Reports generated via electronic interface contain original data; however they are lacking the format of the original report. Caution should be taken when reading/interpreti ng unformatted reports. Name: ? JO JONES ? Accession #: ? [id number] : ? 1965 (Age: 35) ??F ?Collect Date: ? 07/11/2001 Location: ? [facility] ? Receive Date: ? 07/16/2001 Provider: ?NANDA ADRIANO WILSON Copy to: ? Specimen/Source: ?ThinPrep Pap Test, Source Not Provided Last Menstrual Period: ? SPECIMEN ADEQUACY ? Satisfactory for evaluation. GENERAL CATEGORIZATION ? Benign Cellular Changes DESCRIPTIVE DIAGNOSIS ? Fungal organisms present morphologically consistent with Kelly species. ? Document reviewed and electronically signed by: ? HUMAIRA Crum(ASCP)([facility]) ? Report Date: ??07/17/2001 09:21 End of Report [facility] 07/11/2001 07/16/2001 Nanda Sade Read MD PATHOLOGY ORDER [facility] [address] [place] [address] documented in this encounter Visit Diagnoses Not on filedocumented in this encounter Care Teams Robotics Application Engineer Relationship Specialty Start Date End Date Nanda Read MD PCP - General 05/08/09 05/20/18 documented as of this encounter
--- OUTSIDE RECORDS SUMMARY | 2024-05-15 11:05 | XMS_ITS | Encounter Summary ---
Author Organization [facility] Address [address] [place] [address] Care Team Providers Care Cargo Station Worker Name Role Phone Nanda Read MD Primary Care Provider Unavailable Reason for Visit * Reason Comments Follow-up abnormal vaginal ble eding, here for endometrial biopsy Encounter Details Date Type Department Care Team (Late st Contact Info) Description 04/22/2010 15:00 EDT Office Visit [facility] Gynecologic Oncology - [address] [phone] Trevor Julian MD 111 [facility], [address] [place] [phone] Dysfunctional uterine bleeding (Primary Dx) Discharge Disposition: Auto Discharge Social History Tobacco Use Types Packs/Day Years Used Date Smoking Tobacco: Never Assessed Sex and Gender Information Value Date Recorded Sex Assigned at Female 02/22/2021 15:01 EDT Gender Identity Female 04/30/2020 8:27 EDT Sexual Orientation Straight 02/22/2021 15 :01 EDT documented as of this encounter Last Filed Vital Signs Vital Sign Reading Time Taken Comments Blood Pressure 122/70 04/22/2010 1507 EDT Pulse - - Temperature - - Respiratory Rate - - Oxygen Saturation - - Inhaled Oxygen Concentration - - Weight - - Height - - Body Mass Index - - documented in this encounter Discharge Disposition Disposition Code Departure Means Destination Auto Discharge documented in this encounter Progress Notes * Trevor Julian MD - 04/22/2010 1640 EDT Clive Ramos MD [address] [place] [address] Dear Otto: Just a note to keep you updated to your patient, Martha Benoit. As you will recall, on 04/05/2010, I had evaluated because of a history of abnormal pap smears but at that time, she also c/o irregular menses. Today, Martha presents for an endometrial biopsy. Of note, her past medical and surgical history and ROS is unchanged from note on 04/05/2010. Current outpatient prescriptions prior to encounter Medication Sig Dispense Refill ??? pregabalin (LYRICA) [...] ??? Codeine Nausea Only Per h /p Physical exam: Vitals are as documented in EMR Endometrial biopsy was performed in the usual sterile fashion. I explained to Martha that once I get the results of her endometrial biopsy, I will call her with the results and finalize any necessary treatment plans. She is agreeable with plan. As always, I thank you for allowing me to participate in the care of your patients. I will keep youinformed of her progress. Sincerely, Trevor Julian MD Director, Division of Lead Technical Architect Oncology [facility] CC: NANDA READ MD documented in this encounter Plan of Treatment Upcoming Encounters Date Type Department Care Team (Late st Contact Info) Description 05/22/2024 10:00 EDT Office Visit [facility] Foot & Ankle Program - [address] [address] Edwige Keller DPM [address] [place] [phone] 07/18/2024 13:00 EDT Procedure visit [facility] Women's Services - [facility] [address] [place], [place] [phone] Jessica Murray NP 111 [facility], [address] [place] [phone] Scheduled Orders Name Type Priority Associated Diagnoses Orde r Schedule SURGICAL PATHOLOGY- ORDER ONLY Pathology Routine Dysfunctional Uterine Bleeding Ordered: 04/22/2010 documented as of this encounter Visit Diagnoses Diagnosis Dysfunctional uterine bleeding- Primary Other disorder of menstruation and other abnormal bleeding from female genital tract documented in this encounter Care Teams Cargo Station Worker Relationship Specialty Start Date End Date Nanda Read MD PCP - General 05/08/09 05/20/18 documented as of this encounter
--- OUTSIDE RECORDS SUMMARY | 2024-05-15 11:05 | XMS_ITS | Encounter Summary ---
Author Organization [facility] Address [address] [place] [address] Care Team Providers Care Community Nurse Name Role Phone Nanda Read MD Primary Care Provider Unavailable Reason for Visit * Reason Onset Date Comments Other 01/01/2010 test results; pl an of care Encounter Details Date Type Department Care Team (Late st Contact Info) Description 01/01/2010 Telephone [facility] Bariatric Surgery - [place] [address] [place] [address] Ximena Mercado, BRENDAN [address] [place] [address] Other (test results; plan of care) Social History Tobacco Use Types Packs/Day Years Used Date Smoking Tobacco: Never Assessed Sex and Gender Information Value Date Recorded Sex Assigned at Female 02/22/2021 15:01 EDT Gender Identity Female 04/30/2020 8:27 EDT Sexual Orientation Straight 02/22/2021 15 :01 EDT documented as of this encounter Miscellaneous Notes * Telephone Encounter - Ximena Butts - 01/01/[address] Alvarado; patient needs to follow up in office regarding Surgical Pathology results from recent EGD and plan of care regarding possible RYGBP. Patient informed and reassured that plan would be discussed in office; pt anxious and worried that she will not be able to have RYGBP. F/u appointment scheduled for 01/28/10. Ximena Butts RN documented in this encounter Plan of Treatment Upcoming Encounters Date Type Department Care Team (Late st Contact Info) Description 05/22/2024 10:00 EDT Office Visit [facility] Foot & Ankle Program - [address] [address] Edwige Keller DPM [address] [place] [phone] 07/18/2024 13:00 EDT Procedure visit [facility] Women's Services - [facility] [address] [place] [address] Jessica Murray NP 111 [facility], [facility], [address] [place] [phone] documented as of this encounter Visit Diagnoses Not on filedocumented in this encounter Care Teams Community Nurse Relationship Specialty Start Date End Date Nanda Read MD PCP - General 05/08/09 05/20/18 documented as of this encounter
--- OUTSIDE RECORDS SUMMARY | 2024-05-15 11:05 | XMS_ITS | Encounter Summary ---
Author Organization [facility] Address [address] [place] [address] Care Team Providers Care Box Spinner Name Role Phone Nanda Read MD Primary Care Provider Unavailable Encounter Details Date Type Department Care Team (Late st Contact Info) Description 04/22/2010 Results Only [facility] Gynecologic Oncology - [address] [phone] Trevor Burnham MD [address] [place] [address], [address] [place] [phone] Social History Tobacco Use Types Packs/Day Years [...] [facility] Program - [place] [address] [place] [address] Edwige Keller DPM [address] [place] [phone] 07/18/2024 13:00 EDT Procedure visit [facility] Women's Services - [address] [address] Jessica Murray NP 111 [facility], [address] [place] [phone] documented as of this encounter Procedures Procedure Name Priority Date/Time Associated Diagnosis Comments SURGICAL PATHOLOGY Routine 04/22/2010 0:00 EDT documented in this encounter Results * SURGICAL PATHOLOGY (04/22/2010 0:00 EDT) Pathology Report: SURGICAL PATHOLOGY REPORT ? Reports generated via electronic interface contain original data; ? however they are lacking the format of the original report. ? Caution should be taken when reading/interpreti ng unformatted reports. ? Name: ? JO JONES ? Accession #: ? [id number] ? : ? 1965 (Age: 44) ??F ? Collect Date: ? 04/22/2010 ? Location: ? [facility] ? Receive Date: ? 04/23/2010 ? Provider: TERRELL BURNHAM MD ? Copy to: ? Final Pathologic Diagnosis: ? Endometrium, biopsy: ? 1. ?Endometrium with extensive menstrual-type breakdown. ? 2. ? Benign squamous and endocervical epithelium. ? Document reviewed and electronically signed by: ? DINAH De La RosahB ? Report ??Date: 04/28/2010 14:08 ? By the signature above, the attending physician certifies that he/she has ? personally conducted a gross and/or microscopic examination of the described ? specimens and rendered or confirmed the above diagnosis. ? Specimen(s) Received: ? Endometrial biopsy ? Clinical History: ? Dysfunctional uterine bleeding; clinical diagnosis code: 626.8 ? Gross Description: ? Received in formalin labelled Jo Jones is a 2.1 x 1.2 x 0.3 cm ? aggregate of hemorrhagic, soft tissue. ??The specimen is submitted entirely in ?? one cassette. ??(Dr. Guzman)/natalya ? End of Report ? [facility] 04/22/2010 04/23/2010 13: 16 EDT Trevor Burnham MD PATHOLOGY ORDERABLES [facility] [address] [place] [address] documented in this encounter Visit Diagnoses Not on filedocumented in this encounter Care Teams Box Spinner Relationship Specialty Start Date End Date Nanda Read MD PCP - General 05/08/09 05/20/18 documented as of this encounter
--- OUTSIDE RECORDS SUMMARY | 2024-05-15 11:05 | XMS_ITS | Encounter Summary ---
Author Organization [facility] Address [address] [place] [address] Care Team Providers Care Special Needs Nanny Name Role Phone Nanda Read MD Primary Care Provider Unavailable Reason for Visit * Reason Onset Date Comments Vaginal Bleeding 04/16/2010 Encounter Details Date Type Department Care Team (Late st Contact Info) Description 04/16/2010 Telephone [facility] Gynecologic Oncology - [facility] [address] [place], [place] [phone] Martha Pham RN Vaginal Bleeding Social History Tobacco Use Types Packs/Day Years Used Date Smoking Tobacco: Never Assessed Sex and Gender Information Value Date Recorded Sex Assigned at Female 02/22/2021 15:01 EDT Gender Identity Female 04/30/2020 8:27 EDT Sexual Orientation Straight 02/22/2021 15 :01 EDT documented as of this encounter Miscellaneous Notes * Telephone Encounter - Martha Pham RN - 04/16/2010 1232 EDT Martha calls reporting that she continues to have abnormal vaginal bleeding. Spotting x 1 week before March 25, 2010 Menses March 25 - March 29. Spotting until April 03. Spotting started again April 13 and has not stopped. Martha feels as though a period may start any day. Per Dr. Julian's last note and Martha's request patient booked for an endometrial biopsy April 22, 2010 @ 3 PM. Martha was advised to take Motrin 600 mg PO one hour prior to her procedure. documented in this encounter Plan of Treatment Upcoming Encounters Date Type Department Care Team (Late st Contact Info) Description 05/22/2024 10:00 EDT Office Visit [facility] Foot & Ankle Program - [address] [place] [address] Edwige Keller DPM [address] [place] [phone] 07/18/2024 13:00 EDT Procedure visit [facility] Women's Services - [facility] [address] [place] [address] Jessica Murray NP 111 [facility], [address] [place] [phone] documented as of this encounter Visit Diagnoses Not on filedocumented in this encounter Care Teams Special Needs Nanny Relationship Specialty Start Date End Date Nanda Read MD PCP - General 05/08/09 05/20/18 documented as of this encounter
--- OUTSIDE RECORDS SUMMARY | 2024-05-15 11:05 | XMS_ITS | Encounter Summary ---
Author Organization [facility] Address [address] [place] [address] Care Team Providers Care Pin Or Clip Fastener Name Role Phone Nanda Read MD Primary Care Provider Unavailable Reason for Visit * Reason Comments Obesity #2 Encounter Details Date Type Department Care Team (Late st Contact Info) Description 01/28/2010 9:00 EDT Office Visit [facility] Bariatric Surgery [facility] [address] [place] [address] Clara Wade S, TAX ASSOCIATE ATTORNEY 61 [facility] [address] [phone] Venous insufficiency; Morbid obesity ([facility]); Vitamin D deficiency Social History Tobacco Use Types Packs/Day Years Used Date Smoking Tobacco: Never Assessed Sex and Gender Information Value Date Recorded Sex Assigned at Female 02/22/2021 15:01 EDT Gender Identity Female 04/30/2020 8:27 EDT Sexual Orientation Straight 02/22/2021 15 :01 EDT documented as of this encounter Last Filed Vital Signs Vital Sign Reading Time Taken Comments Blood Pressure 120/76 01/28/2010 09 EDT Pulse 88 01/28/2010 09 EDT Temperature - - Respiratory Rate - - Oxygen Saturation - - Inhaled Oxygen Concentration - - Weight 103.1 kg (227 lb 3.2 oz) 01/28/2010 09 EDT Height 158.3 cm (5' 2.32) 01/28/2010 09 EDT Body Mass Index 41.13 01/28/2010 0904 EDT documented in this encounter Patient Instructions * Patient Instructions* Kim Whitley RD - 01/28/2010 9:52 EDT Keep food logs no matter what!!! documented in this encounter Progress Notes * Timothy Alvarado MD - 04/08/2010 0909 EDT DIVISION OF BARIATRIC SURGERY PROGRESS/FOLLOWUP NOTE - 01/28/2010 CHIEF COMPLAINT: Morbid obesity. SUBJECTIVE: Comes in today for results of her EGD biopsy which shows some intestinal metaplasia in her antrum of a polyp that had been removed. I discussed this case with our reinforcing steel worker wire mesh as well as a fellow bariatric surgeon. The patient does not know her paternal history. If there was a family history of gastric malignancies, she has a higher likelihood of this converting to a malignant lesion. In light of the fact that patient wants a laparoscopic gastric bypass, I would be very hesitant to exclude this portion of her stomach. As a result, we have offered her a sleeve gastrectomy as it produces almost as much significant weight loss as a gastric bypass and has approximately an 80 to 85% chance of reversing her type 2 diabetes. I shared this with the patient. The patient is semi-reluctant to do this. RECOMMENDATIONS AND PLAN: I recommended that she see another bariatric surgeon at an additional institution, possibly [facility] or [place], for a second opinion as I want the patient to be happywith the suggestion that we are rendering as I am only willing to perform a sleeve gastrectomy in this patient. This way we would be able to survey this polyp and this area of the stomach in the future. Electronically Signed by Timothy Alvarado MD 04/08/2010 09:09 Timothy Alvarado MD - Timothy Alvarado MD - IDA Job ID: SM Doc ID: [id number] Ext Doc ID: [id number] cc: * Inpatient, Physician - 03/24/2010 1440 EDT * Clara Wade NP - 01/28/2010 1015 EDT NANDA READ [address] [place] [address] Dear Jacek : Thank you for referring your patient, Matrha Benoit, for evaluation and consideration of laparoscopic sleeve gastrectomy surgery. Ms. Benoit met with Dr. Alvarado for his initial consultation.. She denies any changes in her medical history or medications since her previous visit. Ms. Benoit is a 44 y.o. female with adult-onset obesity. Her comorbidities include type 2 diabetes and gastric polyp. Although she was originally pursuing gastric bypass as a treatment for her poorly controlled DM2, due to the gastric polyp with metaplastic cells, we have advised the patient that gastric bypass would make it difficult to follow the progression of this metaplasia due to isolation of the stomach by dissection. We have advised her to consider sleeve gastrectomy. Dr. Alvarado has recommended that she seek a 2nd opinion. Review of Systems - History obtained from the patient General ROS: negative Psychological ROS: positive for - depression over divorce. Was in counseling and on medication short term. Allergy and Immunology ROS: negative, denies allergy to latex, metals or iodine.Hematological and Lymphatic ROS: negative for - bleeding problems, blood clots, blood transfusions or bruising Endocrine ROS: diabetes type 2 for 26 years. Checks BS 4xdaily. 190 in a.m. But a little lower in the afternoons. Goes as high as 220. Working with [email or web address] at [facility]. Respiratory ROS: denies sxs of DAMIAN Cardiovascular ROS: has had chest pain in the past with negative tests (stress test?) around 2007. Denies chest pain since that time. Gastrointestinal ROS:denies GERD but does have an abnormnal polyp on EGD showing metaplasia. Genito-Urinary ROS:last pap 1 month ago and was negative. 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 All NVD. Had gestational diabetes with 2nd . Having paps Q 3-4 months. Mammo 2005. Musculoskeletal ROS: foot pain from neuropathy Neurological ROS: denies migraines or seizures, pos for diabetic neuropathy. Dermatological ROS: psoriasis, confined to upper arms. . Was told that she had a small stroke - mild. Current outpatient prescriptions: pregabalin (LYRICA) 100 mg capsule, Take 100 mg by mouth 3 times daily., Disp: , Rfl: ; folic acid (FOLVITE) 1 mg tablet, Take 1 mg by mouth daily., Disp: , Rfl: ; ergocalciferol (VITAMIN D) 50,000 unit capsule, Take 50,000 Units by mouth twice a week., Disp: , Rfl: ; Exenatide (BYETTA) 10 mcg/0.04 mL PnIj, Inject 10 mcg into the skin 2 times daily., Disp: , Rfl: insulin regular (HUMULIN R,NOVOLIN R) 100 unit/mL injection, Inject into the skin 3 times daily as needed. 0-10 units , Disp: , Rfl: ; insulin glargine (LANTUS SOLOSTAR PEN) 300 unit/3 mL InPn, Inject 84 Units into the skin once daily., Disp: , Rfl: ; metformin (GLUCOPHAGE) 500 mg tablet, Take 500 mg by mouth 3 times daily before meals., Disp: , Rfl: ; glipiZIDE (GLUCOTROL) 10 mg tablet, Take 10 mg by mouth 2 times daily., Disp: , Rfl: POTASSIUM CHLORIDE ORAL, Take 10 mEq by mouth 2 times daily., Disp: , Rfl: ; pregabalin (LYRICA) 200 mg capsule, Take 200 mg by mouth daily., Disp: , Rfl: ; oxycodone-acetaminophen (PERCOCET) 5-325 mg per tablet, Take 1 Tab by mouth every 4 hours as needed for Pain. Takes 5 tabs daily , Disp: , Rfl: ; Thioctic Acid (ALPHA LIPOIC ACID) 100 mg Cap, Take 1 Tab by mouth 2 times daily., Disp: , Rfl: furosemide (LASIX) 40 mg tablet, Take 40 mg by mouth daily., Disp: , Rfl: Allergies include: Codeine Past Surgical History Procedure Date ??? Leep 07/15/2009 ??? Cervix lesion destruction 07/15/2009 ??? Tubal ligation family history includes Cervical Cancer in her sister and Colon Cancer in her father. For exercise Martha is swimming daily for 10 laps. Walking 2 x wk about 1 block. Martha met with our program software intern for 30 minutes to review preoperative dietary recommendations.I did consult our software intern following her visit with the patient and agree with her findings and recommendations. On physical examination today, her BP 120/76 Pulse 88 Ht 1.583 m (5' 2.32) Wt 103.057 kg (227 lb 3.2 oz) and Body mass index is 41.13 kg/(m^2).. Also, on physical exam, her Physical Examination: General appearance - alert, well appearing, and in no distress and anxious Mental status - alert, oriented to person, place, and time Neck - supple, no significant adenopathy, thyroid exam: thyroid is normal in size without nodules or tenderness Lymphatics - no palpable lymphadenopathy, no hepatosplenomegaly Chest - clear to auscultation, no wheezes, rales or rhonchi, symmetric air entry Heart - normal rate, regular rhythm, normal S1, S2, no murmurs, rubs, clicks or gallops Abdomen - soft, nontender, nondistended, no masses or organomegaly no hernias noted Neurological - alert, oriented, normal speech, no focal findings or movement disorder noted Musculoskeletal - not examined Extremities - peripheral pulses normal, no pedal edema, no clubbing or cyanosis Skin - normal coloration and turgor, no rashes, no suspicious skin lesions noted Ms. eBnoit may be an appropriate candidate for laparoscopic sleeve gastrectomy surgery with a BMI of41 and multiple life threatening comorbidities. We will need the following things in order to proceed with this evaluation: results of all tests including testing and evaluation of the CVA, all bloodwork from the past year, any stress tests or cardiac work-up. Also, we will be waiting for the 2nd opinion regarding the type of surgery that is warranted considering the gastric findings. I did spend over 50% of this 45 minute visit in discussion of possible short and long wall mining machine tender risks and complications of bariatric surgery as they pertain to her particular health profile. I also discussed the importance of exercise for weight loss and weight loss maintenance and reviewed the importance of smoking cessation regarding both her cardiovascular risk factors as well as her ability to heal from surgery among many other health risks. If you have any questions or concerns regarding any information in this letter, please do not hesitate to contact me. Martha Benoit will be returning to our office in a few weeks for continued medically supervised weight loss in preparation for surgery. Sincerely Yours, Clara Wade NP CC: * Kim Whitley RD - 01/28/2010 0951 EDT PRE OP NUTRITION FOLLOW UP NOTE Bariatric Clinic Nutrition Pre-op Visit Visit Number: 3 Desired surgery: Gastric Sleeve Subjective: Food logs: claims maintained for 2 weeks, then increased stress from possible stomach Ca, stopped logging and regained all her lost weight. Meal pattern: unk Average caloric intake:unk Meal composition: unk Snacking:unk Exercise: swimming daily, walk 2 times per week Objective: Weight: 227.2 lb Weight loss from last visit: +5.8 lb Total weight loss: Weight loss goal: +3.4 lb 11 lb Surgery Date: Significant Medications and Supplements: B complex Assessment: Patient has made poor progress in making lifestyle changes Comments: allowing stress to rule food intake, not seeing positive aspects of food logging, thinks it's a waste-claims to know what to eat. Enc pt to food log whatever the situation, make choices instead of automatic eating. May need counseling if unable to make permanent change. Plan: Diet Goals: Keep food records Exercise Goals: Maintain current exercise Weight Loss Goal: 11 lb Weight Loss Remaining to Goal: about 14 lb Reviewed: Food/Activity Record, not reviewed not brought in Next Visit: Pre-op follow-up visit documented in this encounter Plan of Treatment Upcoming Encounters Date Type Department Care Team (Late st Contact Info) Description 05/22/2024 10:00 EDT Office Visit [facility] Foot & Ankle Program - [address] [place] [address] Edwige Keller DPM [address] [place] [address] 07/18/2024 13:00 EDT Procedure visit [facility] Women's Services - [address] [phone] Jessica Murray NP 111 [facility], [address] [place] [address] documented as of this encounter Visit Diagnoses Diagnosis Venous insufficiency Unspecified venous (peripheral) insufficiency Morbid obesity ([facility]) Morbid obesity Vitamin D deficiency Unspecified vitamin D deficiency documented in this encounter Discontinued Medications Medication Sig Discontinue Reason Start Date End Da te potassium chloride SA (K-DUR) 20 mEq tablet Take 20 mEq by mouth daily. Patient Stopped Taking 01/28/2010 Thioctic Acid (ALPHA LIPOIC ACID) 300 mg Cap Take by mouth 2 times daily. Patient Stopped Taking 01/28/2010 ERGOCALCIFEROL (VITAMIN D ORAL) Take 100 mg by mouth every 7 days. Patient Stopped Taking 01/28/2010 insulin regular (HUMULIN R,NOVOLIN R) 100 unit/mL injection Inject into the skin 3 times daily as needed. 0-10 units Error 01/28/2010 documented as of this encounter Historical Medications * This list may reflect changes made after this encounter. Medication Sig Dispensed Refills Start Date End Date insulin lispro (HUMALOG) 100 unit/mL injectionIndications:per patient insulin called 70/30 Inject into the skin 3 times daily. Sliding scale folic acid (FOLVITE) 1 mg tablet Take 1 mg by mouth daily. Reported on 03/13/2017 01/08/2024 pregabalin (LYRICA) 100 mg capsule Take 100 mg by mouth 2 times daily. 11/29/2010 08/30/2013 added in this encounter Care Teams Pin Or Clip Fastener Relationship Specialty Start Date End Date Nanda Read MD PCP - General 05/08/09 05/20/18 documented as of this encounter
--- OUTSIDE RECORDS SUMMARY | 2024-05-15 11:05 | XMS_ITS | Encounter Summary ---
Author Organization [facility] Address [address] [place] [address] Care Team Providers Care Supervisor Grain And Yeast Plants Name Role Phone Nanda Read MD Primary Care Provider Unavailable Encounter Details Date Type Department Care Team (Late st Contact Info) Description 12/01/2009 Orders Only [facility] General Surgery - [address] [phone] Trip Alvarado MD [address] [place] [phone] Social History Tobacco Use Types Packs/Day Years [...] Center Foot & Ankle Program - [address] [place] [address] Edwige Keller DPM [address] [place] [phone] 07/18/2024 13:00 EDT Procedure visit [facility] Women's Services - [address] [address] Jessica Murray NP 111 [facility] [address] [place] [address] documented as of this encounter Procedures Procedure Name Priority Date/Time Associated Diagnosis Comments SURGICAL PATHOLOGY Routine 12/01/2009 0:00 EST documented in this encounter Results * SURGICAL PATHOLOGY (12/01/2009 0:00 EST) Pathology Report: SURGICAL PATHOLOGY REPORT ? Reports generated via electronic interface contain original data; ? however they are lacking the format of the original report. ? Caution should be taken when reading/interpreting unformatted reports. ? Name: ? JO JONES ? Accession #: ? [id number] ? : ? 1965 (Age: 44) ??F ? Collect Date: ? 12/01/2009 ? Location: ? [facility] ? Receive Date: ? 12/01/2009 ? Provider: TRIP M FORGIONE MD ? Copy to: NANDA NIEMIRA MD ? Final Pathologic Diagnosis: ? A. ?Stomach, antrum, biopsy: ? 1. ?Fundic mucosa with mild chronic gastritis. ? 2. ?No Helicobacter pylori-like microorganisms identified on ? H&E-stained sections. ? B. ?Stomach, antrum, polyp, biopsy: ? 1. ?Antral mucosa with foveolar hyperplasia and focal intestinal ? metaplasia. ??See comment. ? 2. ? No adenomatous mucosa identified. ? C. ?Gastroesophageal junction, biopsy: ? 1. ?Squamocolumnar junction with acute and chronic inflammation and ? reactive changes. ? 2. ? No intestinal metaplasia identified. ? Comment: ? Deeper levels have been examined on specimen (B). Traffic Workforce Representative sections ?? of (B) have been reviewed at intradepartmental consultation conference. ??(. ?? Tao)/mms ? Document reviewed and electronically signed by: ? SEMAJ GERMAN MD ? Report ??Date: 12/03/2009 16:07 ? By the signature above, the attending physician certifies that he/she has ? personally conducted a gross and/or microscopic examination of the described ? specimens and rendered or confirmed the above diagnosis. ? Specimen(s) Received: ? A. ?Antrum ? B. ? Polyp antrum ? C. ? GE junction ? Clinical History: ? A. R/O H. pylori; B. R/O adenoma; C. R/O Bynum's ? Gross Description: ? Received in Mehrdad's fixative labelled Cy, Jo and antrum R/O H. pylori is a russell-pink tissue measuring 0.7 x 0.2 x 0.1 cm, submitted as (A). ? Received in Mehrdad's fixative labelled Cy, Jo and polyp antrum R/O ?? adenoma is a russell-pink tissue measuring 0.6 x 0.2 x 0.2 cm, submitted as (B). ? Received in Mehrdad's fixative labelled Cy, Jo and GE junction R/O ? Bynum's is a russell-pink tissue measuring 0.3 x 0.2 x 0.2 cm, submitted as (C). /[facility] ? End of Report ? [facility] 12/01/2009 12/01/2009 14: 03 EST Trip Alvarado MD PATHOLOGY OR DERABLES Performing Organization Address City/State/[facility] Co de Phone Number [facility] [address] [place] [address] documented in this encounter Visit Diagnoses Not on filedocumented in this encounter Care Teams Supervisor Grain And Yeast Plants Relationship Specialty Start Date End Date Nanda Read MD PCP - General 05/08/09 05/20/18 documented as of this encounter
--- OUTSIDE RECORDS SUMMARY | 2024-05-15 11:05 | XMS_ITS | Encounter Summary ---
[place] [address] Care Team Providers Care Health Information Internship Name Role Phone Ruth Munoz LARRY Primary Care Provider + Encounter Details Date Type Department Care Team (Latest Contact Info) Description 05/07/2024 Specialty [place] [phone] Rafal Fyre RPH Refill Coordination - 28 day recurrence (secukinumab) for Dermatology Social History Tobacco Use Types Packs/Day Years Used Date Smoking Tobacco: Never Smokeless Tobacco: Never Alcohol Use Standard Drinks/Week Comments No 0 (1 standard drink = 0.6 oz pur e alcohol) Sex and Gender Information Value Date Recorded Sex Assigned at Not on file Gender Identity Female 08/26/2018 10:19 PM EST Sexual Orientation Not on file documented as of this encounter Progress Notes * Rafal Frye RPH - 05/07/2024 2:59 PM EDT Clinical Management Plan: Refill Specialty Pharmacy Consultation; Rafal Frye RPH Comprehensive Medication Management (CMM) Ms. Martha Benoit is a 58 y.o. (1965) female who was contacted in regard to a specialty medication refill reminder. The patient requested a refill of Cosentyx. A review of the medication therapy was performed. The medication was refilled as scheduled, and all medication related questions and concerns were addressed. The specialty pharmacy staff will follow up with the patient 5-7 days prior to next refill. Was a change made to the Care Plan: No Medication Therapy Recommendations No medication therapy recommendations to display Allergies and Drug intolerance: No Known Allergies Medication Reconciliation Discrepancies (compared to [facility] med list) No Review Flowsheet 05/07/2024 3:05 PM Assessment What is the name of the specialty medication you are refilling? Cosentyx Are you taking any new medications? No Any new medical conditions? No Any new allergies? No Any new side effects that are bothersome? No Any missed doses since your last fill? 0 How many doses do you have remaining on hand? 0 Would you like a pharmacist to reach out to you to answer any questions? No Adherence: Any missed doses? No Patient understands no changes to current drug regimen were made. Rafal Frye RPH 05/07/24 3:06 PM documented in this encounter Plan of Treatment Upcoming Encounters Date Type Department Care Team (Late st Contact Info) Description 02/19/2025 9:00 AM EDT TH Visit (TeleHealth) [place] [address] Wyatt Higgins MD [facility] [address] [place] [address] documented as of this encounter Visit Diagnoses Not on filedocumented in this encounter Care Teams Health Information Internship Relationship Specialty Start Date End Date Ruth Munoz APRN [address] [place] [address] PCP - General Family Medicine 02/05/19 documented as of this encounter
--- OUTSIDE RECORDS SUMMARY | 2024-05-15 11:05 | XMS_ITS | Encounter Summary ---
Author Organization [facility] Address [address] [place] [address] Care Team Providers Care Diesel Truck Mechanic Name Role Phone Nanda Read MD Primary Care Provider Unavailable Encounter Details Date Type Department Care Team (Late st Contact Info) Description 12/31/2009 Results Only [facility] Gynecologic Oncology - [address] [phone] Nidhi Burnham MD [address] [place] [address], [address] [place] [phone] Social History Tobacco Use Types Packs/Day Years [...] Info) Description 05/22/2024 10:00 EDT Office Visit [facility] Foot & Ankle Program - [place] [address] [place] [address] Edwige Keller DPM [address] [place] [phone] 07/18/2024 13:00 EDT Procedure visit [facility] Women's Services - [address] [address] Jessica Murray NP 111 [facility] [address] [place] [phone] documented as of this encounter Procedures Procedure Name Priority Date/Time Associated Diagnosis Comments HPV DETECTION, HIGH RISK TYPES Routine 12/31/2009 16:02 EST CYTOPATHOLOGY Routine 12/31/2009 0:00 EST documented in this encounter Results * HUMAN PAPILLOMA VIRUS DNA TEST (12/31/2009 16:02 EST) Specimen Description Cervix, ThinPrep vial [facility] Result Positive for one or more of HPV types 16,18,31,33,35 ,39,45,51,52,5 6,58,59, or 68. These high/intermedi ate risk HPV types are associated with dysplasia and some cervical cancers. [facility] Report Status Final 01/12/2010 [facility] 12/31/2009 16:0 2 EST 01/05/2010 16:02 EDT Nidhi Burnham MD MICROBIOLOGY - GENER AL ORDERABLES [facility] [address] [place] [address] * CYTOPATHOLOGY (12/31/2009 0:00 EST) Pathology Report: CYTOPATHOLOGY REPORT ? Reports generated via electronic interface contain original data; ? however they are lacking the format of the original report. ? Caution should be taken when reading/interpreti ng unformatted reports. ? Name: ? JO JONES A ? Accession #: ? [id number] ? : ? 1965 (Age: 44) ??F ?Collect Date: ? 12/31/2009 ? Location: ? [facility] ? Receive Date: ? 01/01/2010 ? Provider: ?NIDHI BURNHAM MD ? Copy to: ? Specimen/Source: ?Pap Test, Cervix/Endocervix, ThinPrep Imaging System ? with manual evaluation ? Last Menstrual Period: ? Previous Gynecologic Pathology: ? Yes ? Treatment History: ? LEEP: 10/24/09 procedure of the cervix ? Laser therapy: extensive laser vaporization of posterior vaginal fonix ? Other: ? HPVA - HPV testing requested if ASC-US on the current ThinPrep Pap test. ? SPECIMEN ADEQUACY ? Satisfactory for Evaluation ? - transformation zone component present ? GENERAL CATEGORIZATION ? Epithelial Cell Abnormality ? INTERPRETATION ? Squamous Cell Abnormality - Atypical squamous cells, undetermined ? significance (ASC-US). ? EDUCATIONAL NOTES/RECOMMENDATI ONS ? [facility] recommends following the 2006 Consensus Guidelines for the Management of Women with Abnormal Cervical Cancer Screening Tests (JLGTD, ? 2007;11(4):201-222 ). ??Consensus guidelines are available online at ? www.ASCCP.org. ? Document reviewed and electronically signed by: ? Sima J. Caldwell, MD PhD ? Report Date: ??01/05/2010 14:20 ? End of Report ? [facility] 12/31/2009 01/01/2010 Nidhi Burnham MD PATHOLOGY ORDERABLES [facility] [address] [place] [address] documented in this encounter Visit Diagnoses Not on filedocumented in this encounter Care Teams Diesel Truck Mechanic Relationship Specialty Start Date End Date Nanda Read MD PCP - General 05/08/09 05/20/18 documented as of this encounter
--- OUTSIDE RECORDS SUMMARY | 2024-05-15 11:05 | XMS_ITS | Encounter Summary ---
Author Organization [facility] Address [address] [place] [address] Care Team Providers Care Supervisor Word Processing Name Role Phone Nanda Read MD Primary Care Provider Unavailable Encounter Details Date Type Department Care Team (Late st Contact Info) Description 04/12/2010 Abstract [facility] Bariatric Surgery - [place] [address] [place], [place] [id number] Clara Wade, [employer] [address] [id number] Social History Tobacco Use Types Packs/Day Years [...] 05/22/2024 10:00 EDT Office Visit [facility] Foot & Ankle Program - [address] [place], [place] [phone] Edwige Keller DPM [address] [place] [phone] 07/18/2024 13:00 EDT Procedure visit [facility] Women's Services - [place] [address], [place] [id number] Jessica Murray POLO [address] [facility], [address] [place] [phone] documented as of this encounter Visit Diagnoses Not on filedocumented in this encounter Care Teams Supervisor Word Processing Relationship Specialty Start Date End Date Nanda Read MD PCP - General 05/08/09 05/20/18 documented as of this encounter
--- OUTSIDE RECORDS SUMMARY | 2024-05-15 11:05 | XMS_ITS | Encounter Summary ---
Author Organization [facility] Address [address] [place] [address] Care Team Providers Care Yarn Dumper Name Role Phone Nanda Read MD Primary Care Provider Unavailable Reason for Visit * Reason Comments Follow-up 08/15/2009 s/p LEEP procedure of the cervix and extensive laser vaporization of the posterior vaginal fornix Encounter Details Date Type Department Care Team (Late st Contact Info) Description 12/31/2009 13:[address] [facility] Gynecologic Oncology - [address] [address] Trevor Julian MD [address] [place] [address], [address] [place] [address] Mild dysplasia of cervix; Dysplasia of vagina Social History Tobacco Use Types Packs/Day Years Used Date Smoking Tobacco: Never Assessed Sex and Gender Information Value Date Recorded Sex Assigned at Female 02/22/2021 15:01 EDT Gender Identity Female 04/30/2020 8:27 EDT Sexual Orientation Straight 02/22/2021 15 :01 EDT documented as of this encounter Last Filed Vital Signs Vital Sign Reading Time Taken Comments Blood Pressure 102/60 12/31/2009 1346 EST Pulse - - Temperature - - Respiratory Rate - - Oxygen Saturation - - Inhaled Oxygen Concentration - - Weight 101.2 kg (223 lb) 12/31/2009 1346 EST Height 160 cm (5' 3) 12/31/2009 1346 EST Body Mass Index 39.5 12/31/2009 1346 EST documented in this encounter Progress Notes * Trevor Julian MD - 12/31/2009 1423 EST Martha Benoit is a 44 y.o. 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 She denies any shortness of breath, chest pain, nausea, vomiting, constipation or diarrhea. She denies any abnormal vaginal bleeding, odor or discharge. She denies any urinary symptoms. Remainder of ROS is negative. Current outpatient prescriptions Medication Sig Dispense Refill ??? ergocalciferol (VITAMIN D) 50,000 unit capsule Take 50,000 Units by mouth once a week. ??? Thioctic Acid (ALPHA LIPOIC ACID) 300 mg Cap Take by mouth 2 times daily. ??? Exenatide (BYETTA) 10 mcg/0.04 mL PnIj Inject 10 mcg into the skin 2 times daily. ??? insulin regular (HUMULIN R,NOVOLIN R) 100 unit/mL injection Inject 1 Units into the skin 3 times daily before meals. Prn sliding scale dosing ??? insulin glargine (LANTUS SOLOSTAR PEN) 300 [...] (ALPHA LIPOIC ACID) 100 mg Cap Take 2 Tabs by mouth 2 times daily. ??? furosemide (LASIX) 40 mg tablet Take 40 mg by mouth daily. ??? potassium chloride SA (K-DUR) 20 mEq tablet Take 20 mEq by mouth daily. ??? ERGOCALCIFEROL (VITAMIN D ORAL) Take 100 mg by mouth every 7 days. Allergies Allergen Reactions ??? Codeine Nausea Only Per h /p Review of Systems Pertinent items are noted in Subjective/HPI Objective: BP 102/60 Ht 1.6 m (5' 3) Wt 101.152 kg (223 lb) LMP 12/21/2009 Pelvic: external: no lesions; vagina-no lesions; cervix-no lesions and no tender; pap was obtained;no adnexal masses or tenderness. Assessment: Pap smear from past year was reviewed. Today, I explained to Martha that I am pleased with how she is doing. We will call her with the pap smear results. I will see her back in 4 months. documented in this encounter Plan of Treatment Upcoming Encounters Date Type Department Care Team (Late st Contact Info) Description 05/22/2024 10:[address] [facility] Foot & Ankle Program - [address] [address] Edwige Keller DPM [address] [place] [phone] 07/18/2024 13:[address] [facility] Women's Services - [address] [phone] Jessica Murray NP [address] [facility], [address] [place] [phone] Scheduled Orders Name Type Priority Associated Diagnoses Orde r Schedule PAP TEST- ORDER ONLY Pathology Routine Mild Dysplasia of Cervix Dysplasia of Vagina Ordered: 12/31/2009 documented as of this encounter Visit Diagnoses Diagnosis Mild dysplasia of cervix Dysplasia of vagina documented in this encounter Care Teams Yarn Dumper Relationship Specialty Start Date End Date Nanda Read MD PCP - General 05/08/09 05/20/18 documented as of this encounter
--- OUTSIDE RECORDS SUMMARY | 2024-05-15 11:05 | XMS_ITS | Encounter Summary ---
Author Organization [facility] Address [address] [place] [address] Care Team Providers Care Rack Puller Name Role Phone Nanda Read MD Primary Care Provider Unavailable Encounter Details Date Type Department Care Team (Late st Contact Info) Description 07/15/2009 9:09 EDT - 07/15/2009 16:45 EDT Hospital Encounter [facility] Perioperative Services- [address] [address] Trevor Burnham MD [address] [facility], Level [address] [place] [address] Discharge Disposition: Home or Self [...] Sign Reading Time Taken Comments Blood Pressure 117/64 07/15/2009 1620 EDT Pulse 101 07/15/2009 1002 EDT Temperature 36.4 ??C (97.5 ??F) 07/15/2009 1620 EDT Respiratory Rate 20 07/15/2009 1545 EDT Oxygen Saturation 98% 07/15/2009 1630 EDT Inhaled Oxygen Concentration - - Weight 99.8 kg (220 lb) 07/09/2009 1443 EDT Height 157.5 cm (5' 2) 07/09/2009 1443 EDT Body Mass Index 40.24 07/09/2009 1443 EDT documented in this encounter Discharge Summaries * Lissette Selby MD - 07/15/2009 1440 EDT Operative Note Surgeon: Trevor Burnham MD Milk Hauler: Lissette Selby MD Pre-Op Dx/Indications: LSIL/ASCUS with HR HPV + Post-op Dx: Same Procedure: LEEP/Laser Anesthesia: Spinal Findings: Areas of acetowhitening on the posterior fornix. Blood Loss: None Replacement IV/Blood: 1100cc LR Urine Output: 0cc Specimens sent: Anterior, Middle, Posterior portions of cervix, second pass Cultures obtained: None Drains/Packs/Foreign Material Retained: None Complications: None Condition: Stable Dispo: PACU--> Home Lissette Selby MD 07/15/09 1439 documented in this encounter Discharge Instructions * Discharge Instructions* Lissette Selby MD - 07/15/2009 14:41 EDT F/U Appointment: Dr. Burnham will call you with the results in 7-10 days. Prescriptions: Percocet (#10), OTC motrin Activity/Weight Bearing: As tolerated Shower/Bath: Shower only for 1 week Dressings: NA Return to Work: As tolerated Nothing per vagina for: 2 weeks Other: documented in this encounter Medications at Time [...] 2 times daily. Reported on 03/13/2017 05/23/2019 pregabalin (LYRICA) 200 mg capsule Take 200 mg by mouth 2 times daily. 11/29/2010 08/30/2013 Thioctic Acid (ALPHA LIPOIC ACID) 100 mg Cap Take 1 Tab by mouth 2 times daily. 08/30/2013 documented as of this encounter Discharge Disposition Disposition Code Departure Means Destination Home or Self Care documented in this encounter Progress Notes * Analy Fulton RN - 07/15/2009 1726 EDT 1635: D/c instructions reviewed with pt and pt's 2 sons, demonstrated understanding, questions answered. * Analy Fulton RN - 07/15/2009 1545 EDT 1510: Arrived to pacu via stretcher, awake, follows commands, denies pain and nausea. Vss, warm blankets applied 1530: Tolerated po soda and muffin with no compaints, denies pain and nausea, vss. 1545: tolerating po muffin and soda with no complaints, denies pain, vss, family called 1615: oob to br, voided only a few drops, no complaints, pt wanted to get dressed in BR. Back to bed, pt very upset that she is not able to go home b/c unable to void. Explained to pt that she reallyneeds to stay until she can void at least 100cc. Pt states she doesn't want to stay, she wants to go have dinner with her sons and get home before the torodol wears off and she is in pain. She [address] Rojas notified on pager 181 states pt really needs to stay and that if she still doesn't want to to call her back and she will come by. Pt decided to stay. 1640: oob to void, vss, c/o some cramping, voided 60cc without difficulty. Dr. Rojas notified pt only able to void 60cc. States that's ok and pt may go home. Pt told if she is unable to void at homeor feels like she can't empty her bladder to call MD immediately. Also told to call immediately if bleeding more than a pad an hour, fever, chills, persistent n/v. Iv d/c'd, catheter intact. Pt requested a percocet before d/c home for cramping. Pt states i takethese all the time at home documented in this encounter H&P Notes * Inpatient, Physician - 07/20/2009 1220 EDT * Trevor Burnham MD - 07/10/2009 1031 EDT This is H&P for surgery on 07/15. Plse also refer to PCP medical clearance note (not in PRISM). [facility] Care Service Division of Gynecologic Oncology [facility], Level [address] [place] [address] NEW PATIENT EVALUATION - 06/26/2009 Clive Ramos MD [facility] DATA PROCESSING SPECIALIST [address] [place] [address] [address] [facility] [address] Dear Otto: Thank you very much for requesting a consult on your patient, Ms Jo Jones, who recently had cervical and vaginal biopsies and endocervical curettage that demonstrated low-grade dysplasia. As you know, she is a 43-year-old white female who states that she had normal Pap smears until November of this year. At that time she had atypical squamous cells of undetermined significance. Her followup Pap smear in April continued to be abnormal and you had performed a colposcopy and biopsies. The colposcopy and biopsies demonstrate that she had low-grade dysplasia of the cervix and the vagina, at the posterior vaginal fornix and also of the endocervical curettage. Of note, and of interest, Jo hasa sister who is a known patient to our office, who of cervical cancer. Jo presents to the office today for evaluation. Past OB History: Four normal spontaneous vaginal deliveries. Past Gynecologic History: As described above. Past Medical History: Significant for type 2 diabetes and chronic pain related to neuropathy. Past Surgical History: Significant for tubal ligation. ALLERGIES: None. Current Medications: As documented in the nursing sheet. Social History: Negative for cigarette and ethanol abuse. Family History: Sister had cervical cancer, her father had colon cancer. Review of Systems: As documented in the nursing sheet. Laboratory Data: All of the medical records that were sent to me were reviewed. Physical exam: Weight is 220 pounds; height is 5 feet 2 inches. Blood pressure is 118/78. Pelvic exam, external genitalia demonstrated no evidence of any exophytic lesions. The vagina demonstrated noevidence of any exophytic lesions. Colposcopic examination was performed after application of ascetic acid. There are mild acetowhite areas along the cervix and some in the vagina, and there are alsowhat appear to be watery excrescences along the cervix and vagina consistent with her Pap smear andcervical biopsy findings. Today, I had a very lengthy discussion with Jo with regard to her current condition. I explainedto Jo that normally for low-grade dysplasia I would not recommend any further therapy other thanto continue to monitor conservatively with followup Pap smears. However, in my discussion with you and with the patient, she previously had a normally appearing cervix and she now has significant watery excrescences on the cervix and on the vagina. Jo is also very concerned and it is almost debilitating for her, about the fact that her sister of cervical cancer. Given this, I explained toJulie that it may be reasonable to consider performing a LEEP procedure for her and laser ablating t he cervix and vagina. The risks and benefits of this was completely discussed with her and I clearly explained to her that in cases of low-grade dysplasia we generally do not do laser vaporization orLEEP procedures, but in this special circumstance of how concerned and debilitating for her mentally it is, I think it is not unreasonable to do that. Given this, Jo has agreed to undergo LEEP procedure and laser vaporization, and today I have taken the liberty of obtaining a surgical consent. She is scheduled for surgery on July 15, 2009. Given her significant medical history I have requested that Jo undergo preoperative clearance with her primary medical doctor, cristina Archuleta we get the medical clearance we will then be able to do the surgery for her. Total visit time was 40 minutes; over 50% of the time was spent on counseling and managing her careas described above. As always, I thank you very much for allowing me to participate in the care of your patient. I willkeep you informed of her progress. Sincerely and respectfully, Electronically Signed by Trevor Burnham MD 06/30/2009 09:26 Trevor Burnham MD Director, Division of Gynecologic Oncology - Trevor Burnham MD - DIS Job ID: [id number] Doc ID: [id number] cc: MD Clive Archuleta MD 07/15/09 There are no changes in H&P. documented in this encounter Procedure Notes * Lissette Selby MD - 07/15/2009 1159 EDTProcedure(s): LEEP; CERVIX LESION DESTRUCTION Operative Note Surgeon: Trevor Burnham MD Milk Hauler: Lissette Selby MD Pre-Op Dx/Indications: LSIL/ASCUS with HR HPV + Post-op Dx: Same Procedure: LEEP/Laser Anesthesia: Spinal Findings: Areas of acetowhitening on the posterior fornix. Blood Loss: None Replacement IV/Blood: 1100cc LR Urine Output: 0cc Specimens sent: Anterior, Middle, Posterior portions of cervix, second pass Cultures obtained: None Drains/Packs/Foreign Material Retained: None Complications: None Condition: Stable Dispo: PACU--> Home Lissette Selby MD 07/15/09 1439 documented in this encounter OR Notes * OR PreOp - Inpatient, Physician - 07/20/2009 1220 EDT * Anesthesia Preprocedure Evaluation - Inpatient, Physician - 07/16/2009 1046 EDT * OR Surgeon - Trevor Burnham MD - 07/16/2009 0000 EDT PROCEDURE REPORT PT TYPE: OPPROC SERVICE DATE: 07/16/2009 SURGEON: Trevor Burnham MD AUDIO VISUAL TECH: Lissette Selby MD PREOPERATIVE DIAGNOSIS: Persistent cervical dysplasia and vaginal dysplasia. POSTOPERATIVE DIAGNOSIS: Persistent cervical dysplasia and vaginal dysplasia. PROCEDURE: LEEP procedure of the cervix and extensive laser vaporization of the posterior vaginal fornix. ANESTHESIA: Spinal. INDICATIONS: Patient has a known history of persistent cervical dysplasia. Treatment options were fully discussed with the patient. Patient opted for LEEP procedure and laser vaporization of the vagina. FINDINGS: Colposcopic examination demonstrates that she has acetowhite areas on the anterior and posterior lip of the cervix. Colposcopic examination of the vagina demonstrates that there is a plaqueof acetowhite area at the vaginal fornix on her right side. There was some extending also to her left side. NARRATIVE: The patient was brought to the operating room and after successful attainment of anesthesia, patient was prepped and draped in the usual sterile fashion. At this time, a time-out was taken. The patient was identified, her preoperative diagnosis was stated and proposed surgical procedure was stated and concurred with nursing and anesthesia. At this time, acetic acid was applied to the vagina. Colposcopic examination demonstrated acetowhite areas on both the anterior and posterior lip of the cervix and a plaque of acetowhite area on the posterior vaginal fornix right side and extending to the left side. At this time, using the laser at 15 willams superpulse, the posterior vaginal fornix was laser ablated, in particular those areas that were acetowhite. Next, a LEEP procedure was performed using the LEEP. The anterior lip and posterior lip were excised and a second pass involving the endocervical canal was also excised. At this point, the cautery was used to maintain hemostasis on the cervix. At the end of the surgical procedure, patient tolerated the procedure well. Patient was transferredto the recovery room in good stable condition. Dr Burnham was present during the entire procedure. Unless otherwise noted, there were no complications, no blood loss, cultures obtained, specimens removed, or drains retained. ESTIMATED BLOOD LOSS: Minimal. FLUIDS: Please see anesthesia sheet. SPECIMENS: Portions of cervix, anterior lip, posterior lip and second pass. COMPLICATIONS: None. Trevor Burnham MD Director, Division of Gynecologic Oncology - Trevor Burnham MD A - [facility] Job ID: [id number] Document ID: [id number] cc: MD Clive Archuleta MD * Anesthesia Procedure Notes - Inpatient, Physician - 07/15/2009 1656 EDT * Anesthesia Procedure Notes - Inpatient, Physician - 07/15/2009 1636 EDT * Anesthesia Procedure Notes - Inpatient, Physician - 07/15/2009 1516 EDT documented in this encounter Miscellaneous Notes * Scanned Note-Null - Inpatient, Physician - 07/20/2009 1220 EDT * Scanned Note-Null - Inpatient, Physician - 07/20/2009 1220 EDT documented in this encounter Plan of Treatment Upcoming Encounters Date Type Department Care Team (Late st Contact Info) Description 05/22/2024 10:00 EDT Office Visit [facility] Foot & Ankle Program - [facility] [place] [address] Edwige Keller DPM [address] [place] [phone] 07/18/2024 13:00 EDT Procedure visit [facility] Women's Services - [facility] [address], [place] [id number] Jessica Murray NP [address] [facility], [address] [place] [address] documented as of this encounter Procedures Procedure Name Priority Date/Time Associated Diagnosis Comments CYTOPATHOLOGY Routine 09/24/2009 0:00 EST GLUCOSE, GLUCOMETER Routine 07/15/2009 1 5:21 EDT GLUCOSE, GLUCOMETER Routine 07/15/2009 1 3:47 EDT GLUCOSE, GLUCOMETER Routine 07/15/2009 1 0:25 EDT SURGICAL PATHOLOGY Routine 07/15/2009 0: 00 EDT documented in this encounter Results * CYTOPATHOLOGY (09/24/2009 0:00 EST) Pathology Report: CYTOPATHOLOGY REPORT ? Reports generated via electronic interface contain original data; ? however they are lacking the format of the original report. ? Caution should be taken when reading/interpreti ng unformatted reports. ? Name: ? JO JONES ? Accession #: ? [id number] ? : ? 1965 (Age: 43) ??F ?Collect Date: ? 09/24/2009 ? Location: ? [facility] ? Receive Date: ? 09/25/2009 ? Provider: ?TERRELL BURNHAM MD ? Copy to: ? Specimen/Source: ?Pap Test, Cervix, ThinPrep Imaging System with manual ?? evaluation ? Last Menstrual Period: ? Previous Gynecologic Pathology: ? ASC-US ? Treatment History: ? LEEP: 9/24/09 ? Miscellaneous treatment: Laser of the vaginal fornix for persistent cervical and vaginal dysplasia ? SPECIMEN ADEQUACY ? Satisfactory for Evaluation ? - transformation zone component present ? GENERAL CATEGORIZATION ? Epithelial Cell Abnormality ? INTERPRETATION ? Squamous Cell Abnormality - Atypical squamous cells, undetermined ? significance (ASC-US). ? EDUCATIONAL NOTES/RECOMMENDATI ONS ? [facility] recommends following the 2006 Consensus Guidelines for the Management of Women with Abnormal Cervical Cancer Screening Tests (JLGTD, ? 2007;11(4):201-222 ). ??Consensus guidelines are available online at ? www.ASCCP.org. ? Document reviewed and electronically signed by: ? UZAIR MOUNT MD ? Report Date: ??09/30/2009 17:29 ? End of Report ? [facility] 09/24/2009 09/25/2009 Trevor Burnham MD PATHOLOGY ORDERABLES Performing Organization Address [facility] Phone Number [facility] [address] [place] [address] * GLUCOSE, GLUCOMETER (07/15/2009 15:21 EDT) Glucose, Fingerstick 91 70 - 100 mg/dl [facility] Copy [facility] [place] [id number] Test Performed by Nursing Services [facility] 07/15/2009 15:2 1 EDT 07/15/2009 15:22 EDT Trevor Burnham MD CHEMISTRY & BLOOD GA S ORDERABLES Performing Organization Address [facility] Phone Number [facility] [address] [place] [address] * GLUCOSE, GLUCOMETER (07/15/2009 13:47 EDT) Glucose, Fingerstick 85 70 - 100 mg/dl [facility] ID [id number] Test Performed by Nursing Services [facility] 07/15/2009 13:4 7 EDT 07/15/2009 13:49 EDT Trevor Burnham MD CHEMISTRY & BLOOD GA S ORDERABLES Performing Organization Address [facility] de Phone Number [facility] [address] [place] [address] * (ABNORMAL) GLUCOSE, GLUCOMETER (07/15/2009 10:25 EDT) Glucose, Fingerstick 144(H) 70 - 100 mg/dl [facility] ID [id number] Test Performed by Nursing Services [facility] 07/15/2009 10:2 5 EDT 07/15/2009 13:24 EDT Trevor Burnham MD CHEMISTRY & BLOOD GA S ORDERABLES [facility] [address] [place] [address] * SURGICAL PATHOLOGY (07/15/2009 0:00 EDT) Pathology Report: SURGICAL PATHOLOGY REPORT ? Reports generated via electronic interface contain original data; ? however they are lacking the format of the original report. ? Caution should be taken when reading/interpreti ng unformatted reports. ? Name: ? JO JONES ? Accession #: ? [id number] ? : ? 1965 (Age: 43) ??F ? Collect Date: ? 07/15/2009 ? Location: ? [facility] ? Receive Date: ? 07/15/2009 ? Provider: TERRELL BURNHAM MD ? Copy to: NANDA NIEMIRA MD ? Final Pathologic Diagnosis: ? A. ?Cervix, anterior portion, LEEP biopsy: ? 1. ?Squamous mucosa with moderate chronic cervicitis. ? 2. ? No dysplasia identified. ? B. ?Cervix, posterior portion, LEEP biopsy: ? 1. ?Low grade squamous intraepithelial lesion (AIDEN I) (B5). ? 2. ? Surgical resection margin negative for dysplasia. ? 3. ? Mild chronic cervicitis. ? C. ?Cervix, middle portion, LEEP biopsy: ? 1. ?Low grade squamous intraepithelial lesion (AIDEN I) (C5). ? 2. ? Surgical resection margin negative for dysplasia. ? 3. ? Mild chronic cervicitis. ? D. ?Cervix, second pass, LEEP biopsy: ? 1. ?Reactive squamous metaplasia. ? 2. ? No dysplasia identified. ? Document reviewed and electronically signed by: ? SEMAJ GERMAN MD ? Report ??Date: 07/17/2009 16:29 ? By the signature above, the attending physician certifies that he/she has ? personally conducted a gross and/or microscopic examination of the described ? specimens and rendered or confirmed the above diagnosis. ? Specimen(s) Received: ? A. ?Anterior portion of cervix ? B. ? Posterior portion of cervix ? C. ? Middle portion of cervix ? D. ? Second pass ? Clinical History: ? LGSIL ? Gross Description: ? Received in normal saline labelled Jo Jones and anterior cervix is a russell-gordon, unoriented, 2.2 x 1.4 x 0.6 cm portion of cervix with white mucosa. An os is not present. ??The endocervical margin is inked black and the ? ectocervical margin is inked blue. ??The specimen is serially sectioned and ? entirely submitted as (A1) to (A3). ? Received in normal saline labelled Cy, Jo and posterior cervix are two russell-gordon unoriented portions of cervix measuring 2.3 x 1.2 x 0.5 cm and 2.1 x ?? 1.0 x 0.3 cm. ??Each tissue is partially surfaced by russell mucosa. ??The convex ? aspect is inked blue. ??An endocervical margin is not definitively identified. ?? The specimens are serially sectioned and entirely submitted as follows: ? BLOCK COSTA ? B1-B3 ?Larger tissue ? B4-B6 ?Smaller tissue ? Received in normal saline labelled Cy, Jo and middle cervix is a ? russell-gordon, annular, unoriented portion of cervix measuring 1.7 x 1.2 x 0.5 cm. ?? One aspect is partially surfaced by russell mucosa and there is a central 0.5 cm ? patent slit-like os. ??The endocervical margin is inked black and the ? ectocervical margin is inked blue. ??The specimen is radially sectioned and ? entirely submitted as (C1) to (C6). ? Received in normal saline labelled Jo Jones and second pass is a ? russell-gordon, unoriented 1.1 x 0.6 x 0.3 ??cm portion of cervix. ??One aspect is ? partially surfaced by russell-red, mucosa. ??The endocervical margin is inked black ?? and the ectocervical margin is inked blue. ??Also received is a russell-gordon, ? unoriented, ??0.7 x 0.6 x 0.3 cm portion of cervix. ??The endocervical margin is ?? not definitively identified and therefore, the entire margin is inked blue. ? Both specimens are sectioned and entirely submitted as follows: ? BLOCK COSTA ? D1, D2 ?Larger tissue ? D3 ?Smaller tissue ? (M. Littlejohn)/ljn ? End of Report ? [facility] 07/15/2009 07/15/2009 16: 23 EDT Trevor Burnham MD PATHOLOGY ORDERABLES Performing Organization Address City/State/[facility] de Phone Number [facility] [address] [place] [address] documented in this encounter Visit Diagnoses Not on filedocumented in this encounter Administered Medications Inactive Administered Medications - up to 3 most recent administrations Medication Order MAR Action Action Date Dose Rate Site lactated ringers (LR) infusion at 25 mL/hr, intravenous, CONTINUOUS, Starting on Mon07/15/09 at 1015, Until Mon07/15/09 at 1933, Routine, Pre Op Day of Surgery New Bag 07/15/2009 10:25 EDT 25 mL/hr oxycodone-acetaminophen (PERCOCET) 5-325 mg per tablet 2 Tab 2 Tablet, oral, PRN, 1 dose, Starting on Mon07/15/09 at 1422, Until Mon07/15/09 at 1643, Pain, Routine, Recovery (only) Given 07/15/2009 16:43 EDT 1 Tablet documented in this encounter Historical Medications * This list may reflect changes made after this encounter. Medication Sig Dispensed Refills Start Date End Date furosemide (LASIX) 40 mg tablet Take 40 mg by mouth daily. Reported on 03/13/2017 oxyCODONE-acetaminophen (PERCOCET) 10-325 mg per tablet Take 1 Tablet by mouth every 4 hours as needed for Pain. Takes 5 tabs daily glipiZIDE (GLUCOTROL) 10 mg tablet Take 1 Tablet by mouth 2 times daily. metformin (GLUCOPHAGE) 500 mg tablet Take 1 Tablet by mouth 3 times daily before meals. ERGOCALCIFEROL (VITAMIN D ORAL) Take 100 mg by mouth every 7 days. 01/28/2010 Thioctic Acid (ALPHA LIPOIC ACID) 100 mg Cap Take 1 Tab by mouth 2 times daily. 08/30/2013 pregabalin (LYRICA) 200 mg capsule Take 200 mg by mouth 2 times daily. 11/29/2010 08/30/2013 POTASSIUM CHLORIDE ORAL Take 10 mEq by mouth 2 times daily. Reported on 03/13/2017 05/23/2019 insulin glargine (LANTUS SOLOSTAR PEN) 300 unit/3 mL InPn Inject 84 Units into the skin once daily. 08/11/2014 insulin regular (HUMULIN R,NOVOLIN R) 100 unit/mL injection Inject into the skin 3 times daily as needed. 0-10 units 01/28/2010 Exenatide (BYETTA) 10 mcg/0.04 mL PnIj Inject 10 mcg into the skin 2 times daily. 08/11/2014 added in this encounter Active and Recently Administered Medications Times are shown in EDT. Continuous Medication Order 07/13/2009 07/14/2009 07/15/2009 lactated ringers (LR) infusion (CANCELED) at 25 mL/hr, intravenous, CONTINUOUS, Starting on Mon07/15/09 at 1015, Until Mon07/15/09 at 1933, Routine, Pre Op Day of Surgery 1025 (New Bag - Prov ider: Trini Jackson RN) PRN Medication Order 07/13/2009 07/14/2009 07/15/2009 oxycodone-acetaminophen (PERCOCET) 5-325 mg per tablet 2 Tab (COMPLETED) 2 Tablet, oral, PRN, 1 dose, Starting on Mon07/15/09 at 1422, Until Mon07/15/09 at 1643, Pain, Routine, Recovery (only) 1643 (Given - Provid er: Analy Fulton, RN) documented in this encounter Orders Medications Ordered That Alex ht Not Have Been Administered Count Last Ordered Date First Ordered Date atropine 0.1 mg/mL 10 mL syringe 0.5 mg 1 0 07/15/2009 fentanyl citrate (PF) 50 mcg /mL injection 25-100 mcg 1 07/15/2009 lactated ringers (LR) infusion 1 07/15/2009 morphine injection 1-4 mg 1 07/15/2009 naloxone (NARCAN) injection 0.2 mg 1 2008 Nursing Count Last Ordered Date First Orde red Date APPLY WARMING BLANKET 1 07/15/2009 CARDIAC MONITORING 1 07/15/2009 MONITOR AIRWAY 1 07/15/2009 NOTIFY SERVICE 1 07/15/2009 PULSE OXIMETRY 1 07/15/2009 VITAL SIGNS 1 07/15/2009 Admission Count Last Ordered Date First Orde red Date NOTIFY PPS PATIENT DISCHARGED FROM PACU 1 0 07/15/2009 documented in this encounter Care Teams Rack Puller Relationship Specialty Start Date End Date Nanda Read MD PCP - General 05/08/09 05/20/18 documented as of this encounter
--- OUTSIDE RECORDS SUMMARY | 2024-05-15 11:05 | XMS_ITS | Encounter Summary ---
Author Organization [facility] Address [address] [place] [address] Care Team Providers Care Gym Teacher Name Role Phone Nanda Read MD Primary Care Provider Unavailable Encounter Details Date Type Department Care Team (Late st Contact Info) Description 01/22/2010 Abstract [facility] Bariatric Surgery [address] [place], [place] [address] Nanda Read MD Morbid obesity ([facility]) Social History Tobacco Use Types Packs/Day Years [...] Info) Description 05/22/2024 10:00 EDT Office Visit [facility] Foot & Ankle Program - [address] [id number] Edwige Keller DPM [address] [place] [phone] 07/18/2024 13:00 EDT Procedure visit [facility] Women's Services - [facility] [address], [place] [phone] Jessica Murray, BUSINESS SALES CONSULTANT [address] [facility], [facility], [address] [place] [address] documented as of this encounter Visit Diagnoses Diagnosis Morbid obesity ([facility]) Morbid obesity documented in this encounter Care Teams Gym Teacher Relationship Specialty Start Date End Date Nanda Read MD PCP - General 05/08/09 05/20/18 documented as of this encounter
--- OUTSIDE RECORDS SUMMARY | 2024-05-15 11:05 | XMS_ITS | Encounter Summary ---
Author Organization [facility] Address [address] [place] [address] Care Team Providers Care Cook Helper Dessert Name Role Phone Unavailable Primary Care Provider Unavailabl e Encounter Details Date Type Department Care Team (Late st Contact Info) Description 11/11/2008 Before PRISM Converted Visit ([facility]le) [facility] - Maple conversion [address], [place] [phone] Nanda Read MD Social History Tobacco Use [...] Info) Description 05/22/2024 10:00 EDT Office Visit [facility] Foot & Ankle Program - [address] [place] [address] Edwige Keller DPM [address] [place] [phone] 07/18/2024 13:00 EDT Procedure visit [facility] Women's Services - [facility] [address], [place] [phone] Jessica Murray NP [address] [facility], [facility], [address] [place] [phone] documented as of this encounter Procedures Procedure Name Priority Date/Time Associated Diagnosis Comments CYTOPATHOLOGY Routine 11/11/2008 0:00 EST documented in this encounter Results * CYTOPATHOLOGY (11/11/2008 0:00 EST) Pathology Report: CYTOPATHOLOGY REPORT ? Reports generated via electronic interface contain original data; ? however they are lacking the format of the original report. ? Caution should be taken when reading/interpreti ng unformatted reports. ? Name: ? JO JONES ? Accession #: ? [id number] ? : ? 1965 (Age: 42) ??F ?Collect Date: ? 11/11/2008 ? Location: ? [facility] ? Receive Date: ? 11/13/2008 ? Provider: ?NANDA NIEMIRA MD ? Copy to: ? Specimen/Source: ?Pap Test, Cervix/Endocervix, ThinPrep Imaging System ? with manual evaluation ? Last Menstrual Period: ? 1/5/09 ? Other: ? HPVA - HPV testing requested if ASC-US on the current ThinPrep Pap test. ? SPECIMEN ADEQUACY ? Satisfactory for Evaluation ? - transformation zone component present ? GENERAL CATEGORIZATION ? Epithelial Cell Abnormality ? INTERPRETATION ? Squamous Cell Abnormality - Low grade squamous intraepithelial lesion ? (LSIL). ? EDUCATIONAL NOTES/RECOMMENDATI ONS ? [facility] recommends following the 2006 Consensus Guidelines for the Management of Women with Abnormal Cervical Cancer Screening Tests (JLGTD, ? 2007;11(4):201-222 ). ??Consensus guidelines are available online at ? www.ASCCP.org. ? Document reviewed and electronically signed by: ? Cathy L. Sheikh, MD ? Report Date: ??11/17/2008 12:40 ? End of Report ? [facility] 11/11/2008 11/13/2008 Nanda Sade Read MD PATHOLOGY ORDER [facility] [address] [place] [address] documented in this encounter Visit Diagnoses Not on filedocumented in this encounter
--- OUTSIDE RECORDS SUMMARY | 2024-05-15 11:05 | XMS_ITS | Encounter Summary ---
Author Organization [facility] [place] [address] Care Team Providers Care Longwall Shearer Operator Name Role Phone AlexanderAidanantony Mcelroy APRN Primary Care Provider + Encounter Details Date Type Department Care Team (Latest Contact Info) Description 05/03/2024 9:00 AM EDT TH Visit (TeleHealth) [place] [address] Judith Reinoso MD [facility] [place] [address] Type 2 diabetes, controlled, with neuropathy; Vitamin D deficiency; Hypothyroidism, acquired; History of gastric bypass; Dyslipidemia Social History Tobacco Use Types Packs/Day Years Used Date Smoking Tobacco: Never Smokeless Tobacco: Never Alcohol Use Standard Drinks/Week Comments No 0 (1 standard drink = 0.6 oz pur e alcohol) Sex and Gender Information Value Date Recorded Sex Assigned at Not on file Gender Identity Female 08/26/2018 10:19 PM EST Sexual Orientation Not on file documented as of this encounter Last Filed Vital Signs Vital Sign Reading Time Taken Comments Blood Pressure 120/80 05/03/2024 9:06 AM EDT Pulse 70 05/03/2024 9:06 AM EDT Temperature - - Respiratory Rate 12 05/03/2024 9:06 AM EDT Oxygen Saturation - - Inhaled Oxygen Concentration - - Weight 70.3 kg (155 lb) 05/03/2024 9:06 AM EDT Height 160 cm (5' 3) 05/03/2024 9:06 AM EDT Body Mass Index 27.46 05/03/2024 9:06 AM EDT documented in this encounter Patient Instructions * Patient Instructions* Judith Reinoso MD - 05/03/2024 9:00 AM EDT Plan: 1. Medication: To continue levothyroxine 25 mcg daily on empty stomach at least 30 mins before breakfast. Target TSH 0.5-3.0 for her weight and fatigue. Adjustment of diabetes treatment regime: To continue 70/30 mix 10u 3x/day To use Humalog pen sensitive sliding scale as needed if BG>160 (based on 1u:40 BG ratio; 160-1u,200-2u, 240-3u, 280-4u, etc). To cont glipizideER 10 mg qAM &PM To continue invokana 300 mg qAM To cont metformin 500 mg tid (could not tolerate a higher dose) To cont vitamin D 50,000 iu weekly and 2 of Stafford MVI with iron which contains iron (she couldnot tolerate a separate iron supplement due to constipation). To cont B12 1 tablet (1,000 mcg) every day. 2. To continue all other medications, vitamin supplements as instructed,and healthy diet to keep wtdown further 3. Monitoring: to check FSBG before each meal and at bedtime. Target BG 90-150 while fasting and 80-180 pre-meal during daytime Target A1c ~7% for this patient while on insulin 4. Lab: already checked last month as above. To recheck lab every 3-6 months with PCP for her A1c at [facility] lab and will let her know the results during the interim. 5. RTC: Next visit in 12 months by phone telehealth visit (for 9-y post gastric bypass) or earlier needed. Will check annual lab before next visit for HbA1c, BMP, dLDL, TSH, 25vitamin D, B12, iron/TIBC and annual urine microalbumin/Cr. Judith Reinoso MD, PhD, FACE, FACP documented in this encounter Progress Notes * Judith Reinoso MD - 05/03/2024 9:00 AM EDT Endocrine Clinic Name: Jo Jones : 1965 Date: 05/03/2024 PCP: Ruth Munoz APRN Patient verbally consents to this telehealth visit and understands that this visit may be billed, similar to a clinic office visit. I provided care to the patient today via VDO/Phone call. The total time associated with this visit,chart review, documentation, and coordination of care was 30 minutes. Reason for visit: Follow-up Type 2 diabetes s/p bariatric surgery 8 yrs ago (Dr. Mai on 01/04/16) with wt loss of 75-90 bs since the surgery with BMI 27-28 out of obesity now). Also, hypothyroid with TSH 4.31 on levothyroxine 25 mcg qd with normalized TSH 1.8-2.07 and treated for vitamin D deficiency. She just had uterine prolapse repair in Dec 2023 (pelvic sling surgery by [employer] OFFICER). HPI: Jo Jones is a 58 y.o. lady : Diabetes treatment regimen: 70/30 mix pen 10u 3x/day Novolog sliding scale p.r.n for correction of high BG>180 based on sensitive scale q4h p.r.n. Metformin 500 mg 3x/day (1,500 mg/day) GlipizideER 10 mg bid Ivokana 300 mg qd FSBx/day average 140 over the past 2 weeks, typically ranging between 120s- 200s mg/dl Most recent : Range & Units 04/27/17 11:12 08/10/17 09:30 02/12/18 08:33 02/05/19 10:26 07/11/19 17:46 05/31/21 08:48 06/07/22 11:47 02/20/23 13:02 Hemoglobin A1C 4.3 - 5.6 % 6.5 (H) 6.8 (H) 7.5 (H) 7.4 (H) 7.3 (H) 7.5 (H) 7.5 (H) 6.4 (H) Previous A1c (including outside lab): 7.3% on 04/04/24, 6.4% on 02/20/23, 7.5% on 06/07/22 & 05/31/21, 7.8% on 07/02/20, 6.8% on 02/05/20, 7.3% on 07/11/19, 7.5% on 02/12/18, 6.8% on 08/10/17, 7.6% on 01/1717, 7.4% on 07/05/16, 8.4% on 01/05/16, 11/03/15, 8.5% on 11/03/15).Hypoglycemia during the interval time: None (rare in 60s-70s mid-day with late lunch but no low BG at night) Diet: low fat/low carb diet Exercise: walking Complications: no changes during the interim. Prevention: same as last visit recently. She kept her weight stable at 155-160 lbs and used to weigh 250s lbs before gastric bypass in 2015.She tried to cut back on carb so she can reduce 70/30 mix insulin up to 10u (mostly 0-5u tid typically more at dinner). She cannot exercise due to foot drop bilaterally and using walker and now notesuterine prolapse and plans for pelvic sling surgery with her COMMISSIONED [employer]ENCE FORCE OFFICER (not scheduled yet). A1c was stable at 6.4-7.5% range excellent. Her insurance covered for mix 70/30 insulin well. She is now ~8 year post bariatric surgery and better from her foot drop/peripheral neuropathy. She wants to lose wt further as this will help reduce insulin resistance, especially when she could not tolerate metformin at a higher dose well (ok with 500 mg tid but not a full dose of 1,000 mg bid). She also had GI side effects with byetta or bydureon in the past. She is pleased to know that she is now out of obesity range with BMI 27 which is excellent. Her vitamin D was better, up from 18 to 28-29 and then 40-70 (nl 30-100) on vit D 50,000 weekly higher dose since Jul 2017. She has been taking Stafford multivitamin to 2 tab daily with normal ironlevels as well. Denies any changes in vision, no CP, SOB, GI issues, leg swelling or foot ulcer butsome psoriasis in her extremities. She already had quite normal dilated eye exam except for mild cataract ou. ROS: Please see HPI, all others negative Patient Active Problem List Diagnosis Code History of kidney stones-bilateral Z87.442 Chronic foot pain-s/p heel spur surgeries M79.673, G89.29 Diabetic retinopathy & neuropathy E11.319 Preoperative Class III obesity BMI 43, S/P gastric bypass 01/04/16 E66.01 Peripheral neuropathy-severe generalized G62.9 Vitamin D deficiency E55.9 Type II or unspecified type diabetes mellitus with renal manifestations, uncontrolled(250.42) E11.29, E11.65 Peripheral autonomic neuropathy due to diabetes mellitus E11.43 Unspecified hypothyroidism E03.9 Seborrheic keratosis L82.1 Gastroesophageal reflux K21.9 Iron deficiency E61.1 Memory loss R41.3 Psoriasis L40.9 Current Outpatient Medications on File Prior to Visit Medication Sig Dispense Refill secukinumab (Cosentyx Pen) 150 mg/mL Pen Injector Inject 300 mg subcutaneously every 28 days. 2 mL 11 ergocalciferoL, vitamin D2, (vitamin D2) 50,000 unit capsule Take 1 capsule by mouth once a week. 12 capsule 3 levothyroxine (Synthroid) 25 mcg tablet Take 1 tablet by mouth daily. 90 tablet 0 insulin aspart protamine-insulin aspart 70/30 (novoLOG Mix 70-30 FlexPen) 100 unit/mL (70-30) Insulin Pen INJECT 20-30 UNITS UNDER THE SKIN THREE TIMES A DAY 60 mL 3 Invokana 300 mg tablet TAKE ONE TABLET BY MOUTH EVERY DAY 90 tablet 3 cyanocobalamin, vitamin B-12, (Vitamin B-12) 500 mcg tablet Take 500 mcg by mouth daily. FreeStyle Lite Meter Kit 1 each by [facility].(Non-Drug; Combo Route) route daily. 1 each 0 triamcinolone (Kenalog) 0.1 % Cream APPLY TOPICALLY TO THE AFFECTED AREA TWO TIMES A DAY NEEDED 454 g 0 estradioL (ESTRACE) 0.01 % (0.1 mg/gram) Cream Insert 1 gram vaginally 3 times weekly for 3 weeks. Stop 3 days prior to colposcopy. Start:05/30/22 End:06/20/22 Flintstones Complete, iron, 18 mg iron Tablet, Chewable Take 1 tablet by mouth 2 times daily. metFORMIN (Glucophage) 500 mg Tablet Take 500 mg by mouth 3 times daily. halcinonide (Halog) 0.1 % external solution Apply once to twice a day as needed to scalp. 60 mL 3 betamethasone, augmented, (DIPROLENE) 0.05 % Lotion Apply to affected areas on the scalp daily to twice a day. 60 mL 1 fluconazole (Diflucan) 150 mg Tablet Take 1 tablet by mouth as needed (for yeast infection). Once per day 3 tablet 3 cyclobenzaprine (Flexeril) 10 mg Tablet Take 10 mg by mouth nightly. UNABLE TO FIND Med Name: Stafford vitamins take one tablet by mouth twice daily baclofen (LIORESAL) 20 mg Tablet Take 20 mg by mouth 4 times daily. freestyle lite strips 1 each by Other route 4 times daily. DX: E11.40, E11.65 400 each 3 glipiZIDE XL (Glucotrol XL) 10 mg Tablet Extended Rel 24 hr TAKE ONE TABLET BY MOUTH TWICE A DAY 180 tablet 3 omeprazole (PRILOSEC) 20 mg Capsule, Delayed Release(E.C.) TAKE ONE CAPSULE BY MOUTH EVERY DAY 30 MINUTES PRIOR TO BREAKFAST ON AN EMPTY STOMACH 90 capsule 3 nystatin (MYCOSTATIN) Powder 1 Application as needed. 2 SF 5000 PLUS 1.1 % Cream BRUSH ON TEETH ONCE DAILY DIRECTED 11 oxyCODONE-acetaminophen (PERCOCET) 10-325 mg Tablet Take 1 tablet by mouth 6 times daily. gabapentin (NEURONTIN) 300 mg Capsule Take 600 mg by mouth nightly. lidocaine (LIDODERM) 5 %(700 mg/patch) Place 1 patch onto the skin every 12 hours as needed. No current facility-administered medications on file prior to visit. No Known Allergies Social History Socioeconomic History Marital status: Spouse name: Not on file Number of children: Not on file Years of education: Not on file Highest education level: Not on file Occupational History Occupation: disabled Tobacco Use Smoking status: Never Smokeless tobacco: Never Vaping Use Vaping status: Never Used Substance and Sexual Activity Alcohol use: No Drug use: No Sexual activity: Not on file Comment: deferred Other Topics Concern Not on file Social History Narrative Not on file Social Determinants of Health Financial Resource Strain: Not on file Food Insecurity: Not on file Transportation Needs: Not on file Physical Activity: Not on file Intimate Partner Violence: Not on file Housing Stability: Not on file FAMILY HISTORY Family History Problem Relation Age of Onset Diabetes Mother Diabetes Father Diabetes Other High Cholesterol Other Hypertension Other Stroke Other Obesity Other Psoriasis Other * Other congenital malformation in her son/kidney stone Physical exam BP 120/80 Pulse 70 Resp 12 Ht 160 cm (5' 3) Wt 70.3 kg (155 lb) LMP 10/30/2015 (Approximate) BMI 27.46 kg/m?? Deferred. PE from last in-person visit: Appearance: Non-obese, pleasant, NAD, still having slight thin scalp hairs, generalized psoriasis. HEENT: PERRLA, EOMI Neck: no goiter or lymphadenopathy Cardiac: normal S1, S2, no murmur Chest: CTA, no wheeze or crackle. Abdomen: benign, NT, ND Ext: no pitting edema Neuro: mild weakness, still having foot drops walking slowly with walker, depressed reflexes Skin: + dry skin, lots of psoriatic rash in her LEs Recent labs Results for JO JONES ( ) Ref. Range 07/11/2019 17:46 => 02/05/20 WBC Latest Ref Range: 4.0 - 9.5 x10(3)/mcL 11.9 (H) RBC Latest Ref Range: 4.00 - 5.21 x10(6)/mcL 5.08 Hemoglobin Latest Ref Range: 11.7 - 15.5 gm/dL 14.0 Hematocrit Latest Ref Range: 35.7 - 45.8 % 43.8 MCV Latest Ref Range: 82.6 - 94.4 fL 86.2 MCH Latest Ref Range: 27.1 - 32.0 pg 27.6 MCHC Latest Ref Range: 31.7 - 35.0 gm/dL 32.0 RDWSD Latest Ref Range: 37.0 - 46.0 fL 41.9 RDWCV Latest Ref Range: 11.5 - 14.1 % 13.2 Platelets Latest Ref Range: 145 - 357 x10(3)/mcL 286 MPV Latest Ref Range: 7.6 - 12.9 fL 10.4 nRBC % Auto Latest Units: % 0.0 nRBC Abs Auto Latest Ref Range: 0.000 - 0.000 x10(3)/mcL 0.000 Hemoglobin A1C Latest Ref Range: 4.3 - 5.6 % 7.3 (H) => 6.8 % on 02/05/20 with BG 140 Est Avg Gluc Latest Units: mg/dL 162 Iron Latest Ref Range: 30 - 150 mcg/dL 38 TIBC Latest Ref Range: 250 - 450 mcg/dL 323 Iron Saturation Latest Ref Range: 20 - 50 % 12 (L) Ferritin Latest Ref Range: 30 - 400 ng/mL 34 Heavy Metals Unknown ... Range & Units 02/20/23 13:02 Hemoglobin A1C 4.3 - 5.6 % 6.4 (H) Est Avg Gluc mg/dL 137 25-OH Vit D Total 21 - 100 ng/mL 43 25-OH Vit D Interp Sufficient TSH 0.27 - 4.20 mcIU/mL 1.80 [facility] lab on 04/04/24 A1c 7.3% TSH 2.61 25vitD 42.3 B12 >2,000 CMP Neg Urine microalbumin/Cr 90.4H (*but +UTI on keflex) -will recheck Assessment: 58 y.o. lady with better BG and A1c down to 6.4-7.5% on low dose 70/30 mix insulin 10u tid, Invokana, metformin, glipizide for her Diabetes Type 2. She had gastric bypass surgery ~ 8 year ago (Dr. Mai on 01/04/16) with wt loss of ~90 bs and BMI 27 out of obesity now). Also, hypothyroid with TSH 4.31 on levothyroxine 25 mcg qd with normalized TSH 1.8-2.6 and treated for vitamin D deficiency. She recently had uterine prolapse repair with pelvic sling surgery in Dec 2023 without problem and held Invokana 3 days prior to the surgery and simply use Humalog sensitive sliding scale q4h p.r.n if high BG>160. She had good c-peptide 2.9 from her own insulin production which is good news but not enough for her body need due to underlying insulin resistance. She is pleased with her wt & A1c results and wants to lose wt further and to keep A1c < 7% for her diabetic neuropathy. Her urine microalbumin/Cr was misleading while she had UTI and will recheck this lab annually for her. She loves to stay on ivokana and stated that her UTI is not often and already treated with Keflex recently. Complication Risk Status: complications present +peripheral neuropathy in both feet with h/o foot drop and walking with walker to help her balance Also, treated for chronic vttamin D deficiency (25vitamin D down 18 and then better at 38-47 and then 70 in Jul 2017 => 40-44 since Jun 2019), on vitamin D 50,000 iu weekly per bariatric team. HerB12 was trending down from 400s to 300s and we already gave her B12 injection x1 on 03/09/16 once asa booster dose for her neuropathy and follow-up lab showed normal B12 at 448 in => 1,870 in Jun 2019=>1,487 in Jan 2020, so she already reduced B12 1,000 mcg pills to every other day since then. Plan: 1. Medication: To continue levothyroxine 25 mcg daily on empty stomach at least 30 mins before breakfast. Target TSH 0.5-3.0 for her weight and fatigue. Adjustment of diabetes treatment regime: To continue 70/30 mix 10u 3x/day To use Humalog pen sensitive sliding scale as needed if BG>160 (based on 1u:40 BG ratio; 160-1u,200-2u, 240-3u, 280-4u, etc). To cont glipizideER 10 mg qAM &PM To continue invokana 300 mg qAM To cont metformin 500 mg tid (could not tolerate a higher dose) To cont vitamin D 50,000 iu weekly and 2 of Stafford MVI with iron which contains iron (she couldnot tolerate a separate iron supplement due to constipation). To cont B12 1 tablet (1,000 mcg) every day. 2. To continue all other medications, vitamin supplements as instructed,and healthy diet to keep wtdown further 3. Monitoring: to check FSBG before each meal and at bedtime. Target BG 90-150 while fasting and 80-180 pre-meal during daytime Target A1c ~7% for this patient while on insulin 4. Lab: already checked last month as above. To recheck lab every 3-6 months with PCP for her A1c at [facility] and will let her know the results during the interim. 5. RTC: Next visit in 12 months by phone telehealth visit (for 9-y post gastric bypass) or earlier needed. Will check annual lab before next visit for HbA1c, BMP, dLDL, TSH, 25vitamin D, B12, iron/TIBC and annual urine microalbumin/Cr. We have reviewed our plan outlined above with the patient and patient verbalized understanding. Allquestions were answered and most of the time was spent on counseling about medication adjustment and proper use of insulin, diet, exercise, cardiac risk prophylaxis, the diagnostic and therapeutic decisions, and coordination of care. Judith Reinoso MD, PhD, FACE CC: Ruth Munoz APRN documented in this encounter Plan of Treatment Upcoming Encounters Date Type Department Care Team (Late st Contact Info) Description 02/19/2025 9:00 AM EDT TH Visit (TeleHealth) [place] [address] Wyatt Higgins MD [facility] [place] [address] documented as of this encounter Visit Diagnoses Diagnosis Type 2 diabetes, controlled, with neuropathy Type II or unspecified type diabetes mellitus with neurological manifestations, not stated as uncontrolled Vitamin D deficiency Unspecified vitamin D deficiency Hypothyroidism, acquired Unspecified hypothyroidism History of gastric bypass Bariatric surgery status Dyslipidemia Other and unspecified hyperlipidemia documented in this encounter Care Teams Longwall Shearer Operator Relationship Specialty Start Date End Date Ruth Munoz APRN [address] [place] [address] PCP - General Family Medicine 02/05/19 documented as of this encounter
--- OUTSIDE RECORDS SUMMARY | 2024-05-15 11:05 | XMS_ITS | Encounter Summary ---
Author Organization [facility] Address [address] [place] [address] Care Team Providers Care Slabber Light Name Role Phone Nanda Read MD Primary Care Provider Unavailable Encounter Details Date Type Department Care Team (Late st Contact Info) Description 12/11/2009 Abstract [facility] Bariatric Surgery [address] [place], [place] [address] Nanda Read MD Social History Tobacco Use [facility] - [place] [address] [place] [address] Edwige Keller DPM [address] [place] [phone] 07/18/2024 13:00 EDT Procedure visit [facility] Women's Services - [facility] [address] [place], [place] [id number] Jessica Murray, POLO 111 [facility], [facility], [address] [place] [phone] documented as of this encounter Visit Diagnoses Not on filedocumented in this encounter Historical Medications * This list may reflect changes made after this encounter. Medication Sig Dispensed Refills Start Date End Date ergocalciferol (DRISDOL; VITAMIN D2) 1,250 mcg (50,000 unit) capsule Take 1 Capsule by mouth once a week. Thioctic Acid (ALPHA LIPOIC ACID) 300 mg Cap Take by mouth 2 times daily. 01/28/2010 added in this encounter Care Teams Slabber Light Relationship Specialty Start Date End Date Nanda Read MD PCP - General 05/08/09 05/20/18 documented as of this encounter
--- OUTSIDE RECORDS SUMMARY | 2024-05-15 11:05 | XMS_ITS | Encounter Summary ---
Author Organization [facility] Address [address] [place] [address] Care Team Providers Care Long Term Care Social Worker Name Role Phone Nanda Read MD Primary Care Provider Unavailable Encounter Details Date Type Department Care Team (Late st Contact Info) Description 12/03/2009 Abstract [facility] [address] Nanda Read MD Social History [...] Info) Description 05/22/2024 10:00 EDT Office Visit [facility] Foot & Ankle Program - [address] [place] [address] Edwige Keller DPM [address] [place] [phone] 07/18/2024 13:00 EDT Procedure visit [address] [id number] Jessica Murray, POLO 111 [facility], [facility], [address] [place] [address] documented as of this encounter Visit Diagnoses Not on filedocumented in this encounter Care Teams Long Term Care Social Worker Relationship Specialty Start Date End Date Nanda Read MD PCP - General 05/08/09 05/20/18 documented as of this encounter
--- OUTSIDE RECORDS SUMMARY | 2024-05-15 11:05 | XMS_ITS | Encounter Summary ---
Author Organization [facility] Address [address] [place] [address] Care Team Providers Care Top Inventory Control Executive Name Role Phone Nanda Read MD Primary Care Provider Unavailable Encounter Details Date Type Department Care Team (Late st Contact Info) Description 02/27/2006 Results Only [facility] - Maple conversion [address] [place] [phone] Nanda Read MD Social History Tobacco Use [...] Info) Description 05/22/2024 10:00 EDT Office Visit [facility] Foot & Ankle Program - [address] [place] [address] Edwige Keller DPM [address] [place] [phone] 07/18/2024 13:00 EDT Procedure visit [facility] Women's Services - [address] [phone] Jessica Murray NP 111 [facility], [facility], Level [address] [place] [phone] documented as of this encounter Procedures Procedure Name Priority Date/Time Associated Diagnosis Comments CYTOPATHOLOGY Routine 02/27/2006 0:00 EDT documented in this encounter Results * CYTOPATHOLOGY (02/27/2006 0:00 EDT) Pathology Report: CYTOPATHOLOGY REPORT Reports generated via electronic interface contain original data; however they are lacking the format of the original report. Caution should be taken when reading/interpreti ng unformatted reports. Name: ? JO JONES ? Accession #: ? [id number] : ? 1965 (Age: 40) ??F ?Collect Date: ? 02/27/2006 Location: ? [facility] ? Receive Date: ? 03/01/2006 Provider: ?NANDA READ MD Copy to: ? Specimen/Source: ?ThinPrep Pap Test, Cervix/Endocervix, processed on Semantics3 ThinPrep Imaging System, with manual evaluation Last Menstrual Period: ? 02/12/06 ? SPECIMEN ADEQUACY ? Satisfactory for Evaluation - transformation zone component present GENERAL CATEGORIZATION ? Negative for Intraepithelial Lesion or Malignancy INTERPRETATION ? Reactive cellular changes associated with inflammation present (includes repair). ? Document reviewed and electronically signed by: ? Ingrid Zepeda MD ? Report Date: ??03/09/2006 17:09 End of Report [facility] 02/27/2006 03/01/2006 Nanda Read MD PATHOLOGY ORDER AMY Performing Organization Address City/State/[facility] Co de Phone Number [address] [address] documented in this encounter Visit Diagnoses Not on filedocumented in this encounter Care Teams Top Inventory Control Executive Relationship Specialty Start Date End Date Nanda Read MD PCP - General 05/08/09 05/20/18 documented as of this encounter
--- OUTSIDE RECORDS SUMMARY | 2024-05-15 11:05 | XMS_ITS | Encounter Summary ---
Author Organization [facility] Address [address] [place] [address] Care Team Providers Care Home Specialist Name Role Phone Nanda Read MD Primary Care Provider Unavailable Encounter Details Date Type Department Care Team (Late st Contact Info) Description 04/07/2010 Results Only [facility] - [facility] ([facility]) [address] [place] [phone] Joy Hut[place] [address] Social History Tobacco Use Types Packs/Day Years [...] [facility] - [address] [place], [place] [phone] Edwige Keller DPM [address] [place] [phone] 07/18/2024 13:00 EDT Procedure visit [facility] Women's Services - [facility] [address] [place], [place] [phone] Jessica Murray NP 111 [facility] Level 4 [place] [address] documented as of this encounter Procedures Procedure Name Priority Date/Time Associated Diagnosis Comments CYTOPATHOLOGY Routine 04/07/2010 0:00 EDT documented in this encounter Results * CYTOPATHOLOGY (04/07/2010 0:00 EDT) Pathologist [facility] Pathology Report: CYTOPATHOLOGY REPORT ? Reports generated via electronic interface contain original data; ? however they are lacking the format of the original report. ? Caution should be taken when reading/interpreti ng unformatted reports. ? Name: ? JO JONES ? Accession #: ? [id number] ? : ? 1965 (Age: 44) ??F ?Collect Date: ? 04/07/2010 ? Location: ? [facility] ? Receive Date: ? 04/08/2010 ? Provider: ? JOY HUTSON MD ? Copy to: ? CYTOLOGIC DIAGNOSIS: ? Cerebrospinal fluid, cytologic evaluation: ? 1. ?No malignant cells identified. ? 2. ? Peripheral blood contamination. ? Document reviewed and electronically signed by: ? Carlo Zacarias, MD ? Report Date: ??04/08/2010 12:44 ? By the signature above, the attending physician certifies that he/she has ? personally conducted a gross and/or microscopic examination of the described ? specimens and rendered or confirmed the above diagnosis. ? Specimen Type: ? Cerebrospinal Fluid ? Clinical History: ? Not listed ? Gross Description: ? 3 cc of clear colorless fluid were received and processed by concentration technique. ? End of Report ? [facility] 04/07/2010 04/08/2010 8:3 4 EDT Joy Hutson MD PATHOLOGY ORDERABLES [facility] [address] [place] [address] documented in this encounter Visit Diagnoses Not on filedocumented in this encounter Care Teams Home Specialist Relationship Specialty Start Date End Date Nanda Read MD PCP - General 05/08/09 05/20/18 documented as of this encounter
--- OUTSIDE RECORDS SUMMARY | 2024-05-15 11:05 | XMS_ITS | Encounter Summary ---
Author Organization [facility] Address [address] [place] [address] Care Team Providers Care Medical Insurance Collector Name Role Phone Nanda Read MD Primary Care Provider Unavailable Reason for Visit * Reason Onset Date Comments Results 05/10/2010 pt called reques ting results of endometrial bx done on 04/22/10 Encounter Details Date Type Department Care Team (Late st Contact Info) Description 05/10/[address] [facility] Gynecologic Oncology - [facility] [place] [address] [place] [address] Toshia Callaway RN Results (pt called requesting results of endometrial bx done on 04/22/10) Social History Tobacco Use Types Packs/Day Years Used Date Smoking Tobacco: Never Assessed Sex and Gender Information Value Date Recorded Sex Assigned at Female 02/22/2021 15:01 EDT Gender Identity Female 04/30/2020 8:27 EDT Sexual Orientation Straight 02/22/2021 15 :01 EDT documented as of this encounter Miscellaneous Notes * Telephone Encounter - Toshia Callaway RN - 05/10/2010 1515 EDT Martha calls today requesting results of EMB done on 04/22/10. Discussed with Dr Julian, negative biopsy, ok to let pt know. Pt made aware of results. Will follow up in jun for regularly scheduled appt. documented in this encounter Plan of Treatment Upcoming Encounters Date Type Department Care Team (Late st Contact Info) Description 05/22/2024 10:[address] [facility] Foot & Ankle Program - [address] [place] [address] Edwige Keller DPM [address] [place] [phone] 07/18/2024 13:[address] [facility] Women's Services - [facility] [address] [place] [address] Jessica Murray NP 111 [facility], [address] [place] [phone] documented as of this encounter Visit Diagnoses Not on filedocumented in this encounter Care Teams Medical Insurance Collector Relationship Specialty Start Date End Date Nanda Read MD PCP - General 05/08/09 05/20/18 documented as of this encounter
--- OUTSIDE RECORDS SUMMARY | 2024-05-15 11:05 | XMS_ITS | Encounter Summary ---
Author Organization [facility] Address [address] [place] [address] Care Team Providers Care Mat Sewer Name Role Phone Nanda Read MD Primary Care Provider Unavailable Encounter Details Date Type Department Care Team (Late st Contact Info) Description 03/14/2000 Results Only [facility] - Maple conversion [address] [place] [phone] Nanda Read MD Social History Tobacco Use [...] [facility] - [address] [place] [address] Edwige Keller DPM [address] [place] [phone] 07/18/2024 13:00 EDT Procedure visit [facility] Women's Services - [address] [phone] Jessica Murray NP 111 [facility], [address] [place] [phone] documented as of this encounter Procedures Procedure Name Priority Date/Time Associated Diagnosis Comments CYTOPATHOLOGY Routine 03/14/2000 0:00 EDT documented in this encounter Results * CYTOPATHOLOGY (03/14/2000 0:00 EDT) Pathology Report: CYTOPATHOLOGY REPORT Reports generated via electronic interface contain original data; however they are lacking the format of the original report. Caution should be taken when reading/interpreti ng unformatted reports. Name: ? JO JONES ? Accession #: ? [id number] : ? 1965 (Age: 34) ??F ?Collect Date: ? 03/14/2000 Location: ? [facility] ? Receive Date: ? 03/16/2000 Provider: ?NANDAMIKE READ MD Copy to: ? Specimen/Source: ?ThinPrep Pap Test, Vagina/Cervix/Endo cervix Last Menstrual Period: ? 1 mo. ? SPECIMEN ADEQUACY ? Satisfactory for evaluation. GENERAL CATEGORIZATION ? Benign Cellular Changes DESCRIPTIVE DIAGNOSIS ? Reactive cellular changes associated with inflammation present (includes repair). ? Document reviewed and electronically signed by: ? Chelsi Villatoro MD ? Report Date: ??03/30/2000 14:53 End of Report [facility] 03/14/2000 03/16/2000 Nanda Sade Read MD PATHOLOGY ORDER AMY [facility] [address] [place] [address] documented in this encounter Visit Diagnoses Not on filedocumented in this encounter Care Teams Mat Sewer Relationship Specialty Start Date End Date Nanda Read MD PCP - General 05/08/09 05/20/18 documented as of this encounter
--- OUTSIDE RECORDS SUMMARY | 2024-05-15 11:05 | XMS_ITS | Encounter Summary ---
[place] [address] Care Team Providers Care Joiner Name Role Phone Ruth Munoz LARRY Primary Care Provider + Encounter Details Date Type Department Care Team (Latest Contact Info) Description 03/26/2024 Specialty [place] [phone] Sravanthi Cardoza RPH Refill Coordination - 28 [...] as of this encounter Progress Notes * Sravanthi Cardoza RPH - 03/26/2024 12:13 PM EDT Clinical Management Plan: Refill Specialty Pharmacy Consultation; Sravanthi Cardoza RPH Comprehensive Medication Management (CMM) Ms. Martha [...] Known Allergies Medication Reconciliation Discrepancies (compared to [facility] med list) No Review Flowsheet 03/26/2024 12:14 PM Assessment What is the name of the specialty medication you are refilling? Cosentyx Are you taking any new medications? No Any new medical conditions? No Any new allergies? No Any missed doses since your last fill? 0 Any new side effects that are bothersome? No Adherence: Any missed doses? No Patient understands no changes to current drug regimen were made. Sravanthi Cardoza RPH 03/26/24 12:15 PM documented in this encounter Plan of Treatment Upcoming Encounters Date Type Department Care Team (Late st Contact Info) Description 02/19/2025 9:00 AM EDT TH Visit (TeleHealth) [place] [address] Wyatt Higgins MD [facility] [place] [address] documented as of this encounter Visit Diagnoses Not on filedocumented in this encounter Care Teams Joiner Relationship Specialty Start Date End Date Ruth Munoz, LARRY [address] [place] [address] PCP - General Family Medicine 02/05/19 documented as of this encounter
--- OUTSIDE RECORDS SUMMARY | 2024-05-15 11:05 | XMS_ITS | Encounter Summary ---
[place] [address] Care Team Providers Care Cable Engineer Name Role Phone Ruth Munoz LARRY Primary Care Provider + Encounter Details Date Type Department Care Team (Latest Contact Info) Description 04/15/2024 Specialty [place] [address] Sukhdev Ga RPH Refill Coordination - 28 day recurrence [...] as of this encounter Progress Notes * Sukhdev Ga RPH - 04/15/2024 2:32 PM EDT Clinical Management Plan: Refill Specialty Pharmacy Consultation; Sukhdev Ga RPH Comprehensive Medication Management (CMM) Ms. Martha [...] Known Allergies Medication Reconciliation Discrepancies (compared to [facility] med list) No Review Flowsheet 04/15/2024 2:32 PM Assessment What is the name of the specialty medication you are refilling? Cosentyx Are you taking any new medications? No Any new medical conditions? No Any new allergies? No Any new side effects that are bothersome? No Any missed doses since your last fill? 0 Would you like a pharmacist to reach out to you to answer any questions? No Adherence: Any missed doses? No Patient understands no changes to current drug regimen were made. Sukhdev Ga RPH 04/15/24 2:33 PM documented in this encounter Plan of Treatment Upcoming Encounters Date Type Department Care Team (Late st Contact Info) Description 02/19/2025 9:00 AM EDT TH Visit (TeleHealth) [place] [address] Wyatt Higgins MD [facility] [place] [address] documented as of this encounter Visit Diagnoses Not on filedocumented in this encounter Care Teams Cable Engineer Relationship Specialty Start Date End Date Ruth Munoz APRN [address] [place] [address] PCP - General Family Medicine 02/05/19 documented as of this encounter
--- OUTSIDE RECORDS SUMMARY | 2024-05-15 11:05 | XMS_ITS | Encounter Summary ---
[place] [address] Care Team Providers Care Workforce Development Specialist Name Role Phone Ruth Munoz LARRY Primary Care Provider + Encounter Details Date Type Department Care Team (Late st Contact Info) Description 04/04/2024 Telephone [place] [phone] Madelin Caldwell RN Social History Tobacco Use Types Packs/Day Years Used Date Smoking Tobacco: Never Smokeless Tobacco: Never Alcohol Use Standard Drinks/Week Comments No 0 (1 standard drink = 0.6 oz pur e alcohol) Sex and Gender Information Value Date Recorded Sex Assigned at Not on file Gender Identity Female 08/26/2018 10:19 PM EST Sexual Orientation Not on file documented as of this encounter Miscellaneous Notes * Telephone Encounter - Madelin Caldwell RN - 04/04/2024 1:28 PM EDT Received a page for this patient. Patient's PCP office calling, patients name and was verified.PCP office states patient is there now and wanted to confirm the blood work that Dr. Reinoso wanted drawn, the labs the nurse mentioned were the labs this RN saw were ordered. documented in this encounter Plan of Treatment Upcoming Encounters Date Type Department Care Team (Late st Contact Info) Description 02/19/2025 9:00 AM EDT TH Visit (TeleHealth) [place] [address] Wyatt Higgins MD [facility] [place] [address] documented as of this encounter Visit Diagnoses Not on filedocumented in this encounter Care Teams Workforce Development Specialist Relationship Specialty Start Date End Date Ruth Munoz, LARRY [address] [place] [address] PCP - General Family Medicine 02/05/19 documented as of this encounter
--- OUTSIDE RECORDS SUMMARY | 2024-05-15 11:05 | XMS_ITS | Encounter Summary ---
Author Organization [facility] Address [address] [place] [address] Care Team Providers Care Aircraft Ordnance Technician Name Role Phone Nanda Read MD Primary Care Provider Unavailable Encounter Details Date Type Department Care Team (Late st Contact Info) Description 08/05/2009 Abstract [facility] Gynecologic Oncology - [address] [phone] Nanda Read MD Mild Dysplasia of Cervix; Dysplasia of Vagina Social History Tobacco Use Types Packs/Day Years [facility] [address] [phone] Edwige Keller DPM [address] [place] [phone] 07/18/2024 13:00 EDT Procedure visit [facility] Women's Services - [address] [address] Jessica Murray, CHARTERED FINANCIAL ANALYST 111 [facility], Level [address] [place] [address] documented as of this encounter Visit Diagnoses Diagnosis Mild dysplasia of cervix Dysplasia of vagina documented in this encounter Care Teams Aircraft Ordnance Technician Relationship Specialty Start Date End Date Nanda Read MD PCP - General 05/08/09 05/20/18 documented as of this encounter
--- OUTSIDE RECORDS SUMMARY | 2024-05-15 11:05 | XMS_ITS | Encounter Summary ---
Author [facility] [place] [address] Care Team Providers Care Manager Search Engine Name Role Phone MunozRuth jerome Lilibeth JUAREZ Primary Care Provider + Encounter Details Date Type Department Care Team (Late st Contact Info) Description 03/29/2024 10:45 AM EDT TH Visit (TeleHealth) Dermatology at [address] [place] [phone] Galdino Gilliland MD [address] [facility] DERMAT[facility] [place], [place] [phone] Psoriasis Social History Tobacco Use Types Packs/Day Years [...] as of this encounter Progress Notes * Galdino Gilliland MD - 03/29/2024 10:45 AM EDT Problem: 1. On Cosentyx since May 2020 2. Psoriasis on Humira from January to April 2020 with decreasing benefit 3. History of significant psoriasis in her son and granddaughter 4. Status post 2 months of methotrexate without significant improvement Martha follows up for a repeat check on her psoriasis. She remains on Cosentyx. She is doing well with this. She is satisfied with her level of control and like to continue it. Assessment and plan: Psoriasis, well controlled on Cosentyx 1. Continue Cosentyx injecting 300 mg subcutaneously every 4 weeks. Dispense 1 month supply with 11refills 2. Return to clinic in another year for repeat check CC: Ruth Munoz APRN documented in this encounter Plan of Treatment Upcoming Encounters Date Type Department Care Team (Late st Contact Info) Description 02/19/2025 9:00 AM EDT TH Visit (TeleHealth) [place] [address] Wyatt Higgins MD [facility] [place] [address] documented as of this encounter Visit Diagnoses Diagnosis Psoriasis Other psoriasis documented in this encounter Care Teams Manager Search Engine Relationship Specialty Start Date End Date Ruth Munoz APRN [address] [place] [address] PCP - General Family Medicine 02/05/19 documented as of this encounter
--- OUTSIDE RECORDS SUMMARY | 2024-05-15 11:05 | XMS_ITS | Encounter Summary ---
Author Organization [facility] [place] [address] Care Team Providers Care Rail Car Mechanic Name Role Phone MunozAidan jeromeantony Mcelroy APRN Primary Care Provider + Encounter Details Date Type Department Care Team (Late st Contact Info) Description 04/04/2024 Telephone [place] [phone] Wyatt Higgins MD [facility] [place] [address] Social History Tobacco Use Types Packs/Day Years [...] encounter Miscellaneous Notes * Telephone Encounter - Opal Weeks - 04/04/2024 10:03 AM EDT Copied from CRM #[id number]. Topic: Specialty Dept CRMs - Generic Call >> Apr 04, 2024 8:48 AM Telma Anna wrote: Specialist: Wyatt Higgins Relationship (if other than patient-full name): patient Reason for Call: Patient calling to find out if her appointment on 04/11/24 can be changed to a virtual visit or a phone call. This agent unable to change, last office visit notes indicate in clinicappointment. Please call to advise. documented in this encounter Plan of Treatment Upcoming Encounters Date Type Department Care Team (Late st Contact Info) Description 02/19/2025 9:00 AM EDT TH Visit (TeleHealth) [place] [address] Wyatt Higgnis MD [facility] [place] [address] documented as of this encounter Visit Diagnoses Not on filedocumented in this encounter Care Teams Rail Car Mechanic Relationship Specialty Start Date End Date Ruth Munoz, DIALYSIS EQUIPMENT TECHNICIAN [address] [place] [address] PCP - General Family Medicine 02/05/19 documented as of this encounter
--- OUTSIDE RECORDS SUMMARY | 2024-05-15 11:05 | XMS_ITS | Encounter Summary ---
Author Organization [facility] [place] [address] Care Team Providers Care Final Inspector Movement Assembly Name Role Phone MunozRuth jerome Lilibeth JUAREZ Primary Care Provider + Encounter Details Date Type Department Care Team (Latest Contact Info) Description 04/11/2024 8:30 AM EDT TH Visit (TeleHealth) [place] [address] Wyatt Higgins MD [facility] [place] [address] Hereditary sensorimotor neuropathy; Type 2 diabetes mellitus with diabetic neuropathy, unspecified whether nursing home insulin use; Peripheral autonomic neuropathy due to diabetes mellitus Social History Tobacco Use Types Packs/Day Years [...] as of this encounter Progress Notes * Wyatt Higgins MD - 04/11/2024 8:30 AM EDT 58 yo female here in f/u for her peripheral neuropathy. For the last year she has had some left earpain which was worked up at [facility]. No diagnosis I was unable to find any information on care everywhere. In October of this year she started to have decreased urine flow and she went to see a urologistat [facility]. Harder time urinating and defecating. Apparently there is some urinary hesitancy and the uro logist told her to urinate on a scheduled basis every 4 hours. More recently she has had some problems with bowel movements but denies any significant constipation. She has problems pushing. She is not constipated. HGBA1C was around 7 which is relatively stable. Her present weight is 152 lbs. Was 167 on last visit. She has a history of bariatric surgery and has weighed as much as 250 pounds. She has had diabetes since the age of 16 and uses insulin. She walks with a walker. She wants to follow-up with gastroenterology here for a colonoscopy as her father of colon cancer and she has a history of polyps. She claims to be unable to use the usual, conventional means toclean her bowel. Hence there are problems with getting it scheduled. Sweating OK. Bladder OK for the most part. No gastroparesis. Takes 600mg Gabapentin in the evening. Also takes Baclofen. Neuro Exam: MS: Awake, alert, oriented to person, place, year, month 3/3 Immediate, 3/3 Delayed recall Able to state months of year backwards, mimic interlocking hand gestures No dysarthria, language fluent, cooperative with neuro exam CN: Pupils 4mm ERRL, no RAPD EOMI, visual vivas full to confrontation, without simultagnosia Facial sensation intact to light touch, temperature No facial asymmetry Hearing intact to voice Palate elevates symmetrically, tongue protrudes midline SCM and trap strength intact Motor: Plantar flexion and dorsiflexion weakness Sensory: Moderately reduced light touch and temperature in a glove distribution in her bilateral arms Significantly reduced light touch, temperature, and vibration in LE BL, from toes to proximal to her knees Proprioception impaired in BL great toes Coordination: Finger to nose intact with no dysmetria Rapid alternating movements & finger tapping smooth and symmetric No tremor at rest or with motion Gait: Romberg +. Foot drop appreciated bilaterally when she walks Assessment: I believe she could have some degree of autonomic neuropathy from her diabetes. 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 Her prior spinal fluid was normal. Genetic testing showed a variant of unclear significance in regards to her neuropathy. She did have a sister who in her late 30s with possible neuropathy. Her sister was also diabetic. Taking alpha-lipoic acid 600mg BID. She is worried about the ramos, but should continue to take it. I will try to follow-up with Martha in about 12 months time and she is to contact me in the interim with any questions or issues. Autonomic testing might be reasonable although unlikely to change her management. F/u in 9 mos via telehealth. documented in this encounter Plan of Treatment Upcoming Encounters Date Type Department Care Team (Late st Contact Info) Description 02/19/2025 9:00 AM EDT TH Visit (TeleHealth) [place] [address] Wyatt Higgins MD [facility] [place] [address] documented as of this encounter Visit Diagnoses Diagnosis Hereditary sensorimotor neuropathy Type 2 diabetes mellitus with diabetic neuropathy, unspecified whether buttermilk drier operator insulin use Peripheral autonomic neuropathy due to diabetes mellitus Type II or unspecified type diabetes mellitus with neurological manifestations, not stated as uncontrolled documented in this encounter Care Teams Final Inspector Movement Assembly Relationship Specialty Start Date End Date Ruth Munoz, LARRY [address] [place] [address] PCP - General Family Medicine 02/05/19 documented as of this encounter
--- OUTSIDE RECORDS SUMMARY | 2024-05-15 11:06 | XMS_ITS | Encounter Summary ---
[place] [address] Care Team Providers Care Spindle Tester Name Role Phone MunozRuth jerome Lilibeth JUAREZ Primary Care Provider + Encounter Details Date Type Department Care Team (Late st Contact Info) Description 08/23/2022 Telephone Dermatology at [address] [address] Benita Salazar LPN Social History Tobacco Use Types Packs/Day Years [...] encounter Miscellaneous Notes * Telephone Encounter - Benita Salazar LPN - 08/23/2022 3:17 PM EDT Received request from pharmacy [facility] for refill on TAC ointment. Call patient to review need for TAC ointment. She voiced cocentyx has been working well. Uses TAC cream/ointment everyday for dry skin on elbows and back of calves. She applies after bath/shower everyday. She voice using baby oil sometimes. [facility] will be filling TAC cream one tub today order written on 07/29/22. Educated patient the TAC is a steroid and she shouldn't apply to her skin every day. When a steroidcream/ointment is applied topically it can sometimes make skin thinner. She should only apply when she has breakthrough of psoriasis. ONLY apply for a very short period of time. Encouraged her to useCeraVe cream for dryness of skin. She can apply this several times daily. She can get it over the counter at [employer] sometimes at a cheaper ramos by one get one half off. Also look for coupon. Answered all questions and concerns. She voiced understanding. TAC ointment refill was refused. documented in this encounter Plan of Treatment Upcoming Encounters Date Type Department Care Team (Late st Contact Info) Description 02/19/2025 9:00 AM EDT TH Visit (TeleHealth) [place] [address] Wyatt Higgins MD [facility] [place] [address] documented as of this encounter Visit Diagnoses Not on filedocumented in this encounter Care Teams Spindle Tester Relationship Specialty Start Date End Date Ruth Munoz APRN [address] [place] [address] PCP - General Family Medicine 02/05/19 documented as of this encounter
--- OUTSIDE RECORDS SUMMARY | 2024-05-15 11:06 | XMS_ITS | Encounter Summary ---
[place] [address] Care Team Providers Care Gypsum Roofer Name Role Phone Ruth Munoz LARRY Primary Care Provider + Encounter Details Date Type Department Care Team (Late st Contact Info) Description 08/02/2022 Specialty [place] [address] Louis Baeza, [facility] Social History Tobacco Use Types Packs/Day Years [...] as of this encounter Progress Notes * Louis Baeza - 08/02/2022 10:26 AM EDT Clinical Management Plan: Refill Specialty Pharmacy Consultation; Louis Baeza Comprehensive Medication Management (CMM) Martha Benoit Ms. Martha Benoit is a 56 y.o. (1965) female who was contacted in regard to a specialty medication refill reminder. Contact made with patient regarding Cosentyx. A review of the medication therapy was performed. The medication was refilled as scheduled, and all medication related questions and concerns were addressed. The specialty pharmacy staff will follow up with the patient 5-7 days priorto next refill. Was a change made to the Care Plan: No Allergies and Drug intolerance: No Known Allergies Medication Reconciliation Discrepancies (compared to [facility] med list) No Specialty Pharmacy Refill Questionnaire Refill Questionnaire 08/02/2022 What is the name of the specialty medication you are refilling? Cosentyx Are you taking any new medications? No Any new medical condition? No Any new allergies? No Any new side effects that are bothersome? No What date will you need this fill by? 08/11/2022 Adherence: Any missed doses? No Patient understands no changes to current drug regimen were made. Louis Baeza 08/02/22 10:27 AM documented in this encounter Plan of Treatment Upcoming Encounters Date Type Department Care Team (Late st Contact Info) Description 02/19/2025 9:00 AM EDT TH Visit (TeleHealth) [place] [address] Wyatt Higgins MD [facility] [place] [address] documented as of this encounter Visit Diagnoses Not on filedocumented in this encounter Care Teams Gypsum Roofer Relationship Specialty Start Date End Date Ruth Munoz APRN [address] [place] [address] PCP - General Family Medicine 02/05/19 documented as of this encounter
--- OUTSIDE RECORDS SUMMARY | 2024-05-15 11:06 | XMS_ITS | Encounter Summary ---
[place] [address] Care Team Providers Care Salesperson Neckties Name Role Phone Ruth Munoz LARRY Primary Care Provider + Reason for Visit * Reason Comments Specialty Refill Management Encounter Details Date Type Department Care Team (Late st Contact Info) Description 07/08/2022 Specialty Pharmacy [place] [address] Sravanthi Cardoza RPH Social History Tobacco Use Types Packs/Day Years [...] Progress Notes * Sravanthi Cardoza RPH - 07/08/2022 4:09 PM EDT Clinical Management Plan: Refill Specialty Pharmacy Consultation; Sravanthi Cardoza RPH Comprehensive Medication Management (CMM) Martha Benoit Ms. [...] the patient 5-7 days priorto next refill. Patient says it is working well and she is not having any issues. Was a change made to the Care Plan: No Allergies and Drug intolerance: No Known Allergies Medication Reconciliation Discrepancies (compared to [facility] med list) No Specialty Pharmacy Refill Questionnaire Refill Questionnaire 07/08/2022 What is the name of the specialty medication you are refilling? Cosentyx Are you taking any new medications? No Any new medical condition? No Any new allergies? No Any new side effects that are bothersome? No What date will you need this fill by? - Adherence: Any missed doses? No Patient understands no changes to current drug regimen were made. Sravanthi Cardoza RPH 07/08/22 4:10 PM documented in this encounter Plan of Treatment Upcoming Encounters Date Type Department Care Team (Late st Contact Info) Description 02/19/2025 9:00 AM EDT TH Visit (TeleHealth) [place] [address] Wyatt Higgins MD [facility] [place] [address] documented as of this encounter Visit Diagnoses Not on filedocumented in this encounter Care Teams Salesperson Neckties Relationship Specialty Start Date End Date Ruth Munoz APRN [address] [place] [address] PCP - General Family Medicine 02/05/19 documented as of this encounter
--- OUTSIDE RECORDS SUMMARY | 2024-05-15 11:06 | XMS_ITS | Encounter Summary ---
[place] [address] Care Team Providers Care Radiographer Mammographer Name Role Phone Ruth Munoz LARRY Primary Care Provider + Reason for Visit * Reason Comments Medication Management Specialty Refill Management Encounter Details Date Type Department Care Team (Late st Contact Info) Description 03/23/2023 Specialty [place] [address] Oc [facility] Social History Tobacco Use Types [...] as of this encounter Progress Notes * Oc [facility] - 03/23/2023 12:03 PM EDT Clinical Management Plan: Refill Specialty Pharmacy Consultation; O[facility] Comprehensive Medication Management (CMM) Martha Moon Benoit MsEdvin Benoit is a 57 y.o. (1965) female who was contacted in [...] Known Allergies Medication Reconciliation Discrepancies (compared to [facility] med list) No Specialty Pharmacy Refill Questionnaire 03/23/2023 Refill Questionnaire What is the name of the specialty medication you are refilling? cosentyx Are you taking any new medications? No Any new medical condition? No Any new allergies? No Any new side effects that are bothersome? No What date will you need this fill by? 03/25/2023 Adherence: Any missed doses? No Patient understands no changes to current drug regimen were made. Oc Archer RPH 03/23/23 12:04 PM documented in this encounter Plan of Treatment Upcoming Encounters Date Type Department Care Team (Late st Contact Info) Description 02/19/2025 9:00 AM EDT TH Visit (TeleHealth) [place] [address] Wyatt Higgins MD [facility] [place] [address] documented as of this encounter Visit Diagnoses Not on filedocumented in this encounter Care Teams Radiographer Mammographer Relationship Specialty Start Date End Date Ruth Munoz APRN [address] [place] [address] PCP - General Family Medicine 02/05/19 documented as of this encounter
--- OUTSIDE RECORDS SUMMARY | 2024-05-15 11:06 | XMS_ITS | Encounter Summary ---
[place] [address] Care Team Providers Care Performance Test Consultant Name Role Phone Ruth Munoz LARRY Primary Care Provider + Encounter Details Date Type Department Care Team (Late st Contact Info) Description 06/09/2022 Refill Dermatology at [address] [place] [id number] Galdino Gilliland MD [address] [facility] [place] [address] Social History Tobacco Use Types Packs/Day Years [...] AM EDT TH Visit (TeleHealth) [place] [address] Wyatt Higgins MD [facility] [place] [address] documented as of this encounter Visit Diagnoses Not on filedocumented in this encounter Care Teams Performance Test Consultant Relationship Specialty Start Date End Date Ruth Munoz APRN [address] [place] [address] PCP - General Family Medicine 02/05/19 documented as of this encounter
--- OUTSIDE RECORDS SUMMARY | 2024-05-15 11:06 | XMS_ITS | Encounter Summary ---
Author Organization [facility] [place] [address] Care Team Providers Care Social Sciences Lecturer Name Role Phone MunozRuth jerome Lilibeth JUAREZ Primary Care Provider + Reason for Visit * Reason Comments Medication Refill Encounter Details Date Type Department Care Team (Late st Contact Info) Description 04/30/2023 Ref[place] [phone] Judith Reinoso MD [facility] [place] [address] Social History Tobacco Use Types Packs/Day Years [...] AM EDT TH Visit (TeleHealth) [place] [address] Wyatt Higgins MD [facility] [place] [address] documented as of this encounter Visit Diagnoses Not on filedocumented in this encounter Care Teams Social Sciences Lecturer Relationship Specialty Start Date End Date Ruth Munoz, LARRY [address] [place] [address] PCP - General Family Medicine 02/05/19 documented as of this encounter
--- OUTSIDE RECORDS SUMMARY | 2024-05-15 11:06 | XMS_ITS | Encounter Summary ---
[place] [address] Care Team Providers Care Motor Coach Bus Driver Name Role Phone Ruth Munoz LARRY Primary Care Provider + Reason for Visit * Reason Comments Medication Management Encounter Details Date Type Department Care Team (Late st Contact Info) Description 11/29/2022 Specialty [place]acy [place] [address] Sukhdev Ga RPH Social History Tobacco Use Types Packs/Day [...] Progress Notes * Sukhdev Ga RPH - 11/29/2022 12:23 PM EST Clinical Management Plan: Refill Specialty Pharmacy Consultation; Sukhdev Ga RPH Comprehensive Medication Management (CMM) Martha Benoit Ms. Martha A Cy is a 57 y.o. (1965) female who [...] Known Allergies Medication Reconciliation Discrepancies (compared to [facility] med list) No Specialty Pharmacy Refill Questionnaire Refill Questionnaire 11/29/2022 What is the name of the specialty medication you are refilling? Cosentyx Are you taking any new medications? No Any new medical condition? No Any new allergies? No Any new side effects that are bothersome? No What date will you need this fill by? 12/03/2022 Adherence: Any missed doses? No Patient understands no changes to current drug regimen were made. Sukhdev Ga RPH 11/29/22 12:25 PM documented in this encounter Plan of Treatment Upcoming Encounters Date Type Department Care Team (Late st Contact Info) Description 02/19/2025 9:00 AM EDT TH Visit (TeleHealth) [place] [address] Wyatt Higgins MD [facility] [place] [address] documented as of this encounter Visit Diagnoses Not on filedocumented in this encounter Care Teams Motor Coach Bus Driver Relationship Specialty Start Date End Date Ruth Munoz APRN [address] [place] [address] PCP - General Family Medicine 02/05/19 documented as of this encounter
--- OUTSIDE RECORDS SUMMARY | 2024-05-15 11:06 | XMS_ITS | Encounter Summary ---
[place] [address] Care Team Providers Care Metal Checker Name Role Phone Ruth Munoz LARRY Primary Care Provider + Reason for Visit * Reason Comments Medication Management Specialty Refill Management Encounter Details Date Type Department Care Team (Late st Contact Info) Description 05/10/2023 Specialty Pharmacy [place] [address] Rafal Frye RPH Social History Tobacco Use Types Packs/Day [...] Progress Notes * Rafal Frye RPH - 05/10/2023 2:27 PM EDT Clinical Management Plan: Refill Specialty Pharmacy Consultation; Rafal Frye RPH Comprehensive Medication Management (CMM) Martha Benoit Ms. Martha Benoit is a 57 y.o. (1965) female [...] Known Allergies Medication Reconciliation Discrepancies (compared to [facility] med list) No Specialty Pharmacy Refill Questionnaire More data exists 05/10/2023 Refill Questionnaire What is the name of the specialty medication you are refilling? cosentyx Are you taking any new medications? No Any new medical condition? No Any new allergies? No Any new side effects that are bothersome? No What date will you need this fill by? 05/20/2023 Adherence: Any missed doses? No Patient understands no changes to current drug regimen were made. Rafal Frye RPH 05/10/23 2:29 PM documented in this encounter Plan of Treatment Upcoming Encounters Date Type Department Care Team (Late st Contact Info) Description 02/19/2025 9:00 AM EDT TH Visit (TeleHealth) [place] [address] Wyatt Higgins MD [facility] [place] [address] documented as of this encounter Visit Diagnoses Not on filedocumented in this encounter Care Teams Metal Checker Relationship Specialty Start Date End Date Ruth Munoz APRN [address] [place] [address] PCP - General Family Medicine 02/05/19 documented as of this encounter
--- OUTSIDE RECORDS SUMMARY | 2024-05-15 11:06 | XMS_ITS | Encounter Summary ---
Author Organization [facility] [address] Care Team Providers Care Long Wall Shear Operator Name Role Phone Ruth Munoz Lilibeth JUAREZ Primary Care Provider + Reason for Visit * Reason Onset Date Comments Medication Refill 01/15/2024 Encounter Details Date Type Department Care Team (Late st Contact Info) Description 01/15/2024 [place] [address] Judith Reinoso MD [facility] [place] [address] Medication Refill Social History Tobacco Use Types Packs/Day [...] encounter Miscellaneous Notes * Telephone Encounter - Dayanara Montesinos - 01/15/2024 3:22 PM EDT NAME OF MEDICATION AND DOSE: insulin aspart protamine-insulin aspart 70/30 (novoLOG Mix 70-30 FlexPen) 100 unit/mL (70-30) Insulin Pen INJECT 20-30 UNITS UNDER THE SKIN THREE TIMES A DAY - dose and frequency as stated in medication list. PHARMACY NAME:[id number] - [place], [place] - [address] [facility] PHONE: [phone] Would patient like script sent directly to pharmacy? (Yes or no) yes Would patient like to machine pecan picker paper script here at our office (Please put yes or no) no Would patient like paper script mailed to home address (Please put yes or no) no Patient is almost out of medication and is asking for it to be called in today if possible Caller/Patient aware of 1-2 business day process. documented in this encounter Plan of Treatment Upcoming Encounters Date Type Department Care Team (Late st Contact Info) Description 02/19/2025 9:00 AM EDT TH Visit (TeleHealth) [place] [address] Wyatt Higgins MD [facility] [place] [address] documented as of this encounter Visit Diagnoses Not on filedocumented in this encounter Care Teams Long Wall Shear Operator Relationship Specialty Start Date End Date Ruth Munoz APRN [address] [place] [address] PCP - General Family Medicine 02/05/19 documented as of this encounter
--- OUTSIDE RECORDS SUMMARY | 2024-05-15 11:06 | XMS_ITS | Encounter Summary ---
Author Organization [facility] [place] [address] Care Team Providers Care Oxygen Equipment Preparer Name Role Phone MunozRuth jerome Lilibeth JUAREZ Primary Care Provider + Reason for Visit * Reason Comments Medication Refill Encounter Details Date Type Department Care Team (Late st Contact Info) Description 05/06/2023 [place] [phone] Judith Reinoso MD [facility] [place] [address] Social History Tobacco Use Types Packs/Day Years [...] AM EDT TH Visit (TeleHealth) [place] [address] Wyatt Higgins MD [facility] [place] [place] [address] documented as of this encounter Visit Diagnoses Not on filedocumented in this encounter Care Teams Oxygen Equipment Preparer Relationship Specialty Start Date End Date Ruth Munoz, LARRY [address] [place] [address] PCP - General Family Medicine 02/05/19 documented as of this encounter
--- OUTSIDE RECORDS SUMMARY | 2024-05-15 11:06 | XMS_ITS | Encounter Summary ---
[place] [address] Care Team Providers Care Electronic Device Monitor Name Role Phone Ruth Munoz LARRY Primary Care Provider + Encounter Details Date Type Department Care Team (Late st Contact Info) Description 08/21/2023 Specialty [place] [address] Louis Baeza, [facility] Social History Tobacco Use Types Packs/Day Years [...] encounter Progress Notes * Louis Baeza - 08/21/2023 11:11 AM EDT Clinical Management Plan: Refill Specialty [...] Known Allergies Medication Reconciliation Discrepancies (compared to [facility] med list) No Specialty Pharmacy Refill Questionnaire More data exists 08/21/2023 Refill Questionnaire What is the name of the specialty medication you are refilling? Cosentyx Are you taking any new medications? No Any new medical condition? No Any new allergies? No Any new side effects that are bothersome? No What date will you need this fill by? 08/31/2023 Adherence: Any missed doses? No Patient understands no changes to current drug regimen were made. Louis Baeza 08/21/23 11:12 AM documented in this encounter Plan of Treatment Upcoming Encounters Date Type Department Care Team (Late st Contact Info) Description 02/19/2025 9:00 AM EDT TH Visit (TeleHealth) [place] [address] Wyatt Higgins MD [facility] [place] [address] documented as of this encounter Visit Diagnoses Not on filedocumented in this encounter Care Teams Electronic Device Monitor Relationship Specialty Start Date End Date Ruth Munoz APRN [address] [place] [address] PCP - General Family Medicine 02/05/19 documented as of this encounter
--- OUTSIDE RECORDS SUMMARY | 2024-05-15 11:06 | XMS_ITS | Encounter Summary ---
[place] [address] Care Team Providers Care Automotive Warranty Administrator Name Role Phone Ruth Munoz LARRY Primary Care Provider + Reason for Visit * Reason Comments Medication Management Encounter Details Date Type Department Care Team (Late st Contact Info) Description 01/16/2023 Specialty [place] [address] Sukhdev Ga RPH Social History Tobacco Use [...] Progress Notes * Sukhdev Ga RPH - 01/16/2023 12:31 PM EDT Clinical Management Plan: Refill Specialty [...] Known Allergies Medication Reconciliation Discrepancies (compared to [facility] med list) No Specialty Pharmacy Refill Questionnaire 01/16/2023 Refill Questionnaire What is the name of the specialty medication you are refilling? Cosentyx Are you taking any new medications? No Any new medical condition? No Any new allergies? No Any new side effects that are bothersome? No Multiple values from one day are sorted in reverse-chronological order Adherence: Any missed doses? No Patient understands no changes to current drug regimen were made. Sukhdev Ga RPH 01/16/23 12:32 PM documented in this encounter Plan of Treatment Upcoming Encounters Date Type Department Care Team (Late st Contact Info) Description 02/19/2025 9:00 AM EDT TH Visit (TeleHealth) [place] [address] Wyatt Higgins MD [facility] [place] [address] documented as of this encounter Visit Diagnoses Not on filedocumented in this encounter Care Teams Automotive Warranty Administrator Relationship Specialty Start Date End Date Ruth Munoz APRN [address] [place] [address] PCP - General Family Medicine 02/05/19 documented as of this encounter
--- OUTSIDE RECORDS SUMMARY | 2024-05-15 11:06 | XMS_ITS | Encounter Summary ---
Author Organization [facility] [place] [address] Care Team Providers Care Pattern Drum Maker Name Role Phone Ruth Munoz Lilibeth JUAREZ Primary Care Provider + Reason for Visit * Reason Onset Date Comments Medication Refill 11/01/2022 Encounter Details Date Type Department Care Team (Late st Contact Info) Description 11/01/2022 Refill [place] [phone] Shari Keller RN Social History Tobacco Use Types Packs/Day [...] AM EDT TH Visit (TeleHealth) [place] [phone] Wyatt Higgins MD [facility] [address] NEUROLOGY DEPT. [place], [place] [id number] documented as of this encounter Visit Diagnoses Not on filedocumented in this encounter Care Teams Pattern Drum Maker Relationship Specialty Start Date End Date Ruth Munoz APRN [address] [place] [address] PCP - General Family Medicine 02/05/19 documented as of this encounter
--- OUTSIDE RECORDS SUMMARY | 2024-05-15 11:06 | XMS_ITS | Encounter Summary ---
Author Organization [facility] [place] [address] Care Team Providers Care Journeyman Lineman Name Role Phone MunozAidan jeromeantony Mcelroy APRN Primary Care Provider + Encounter Details Date Type Department Care Team (Latest Contact Info) Description 02/20/2023 12:35 PM EDT Laboratory Appointment Lab [address] [place] [address] Hypothyroidism, acquired; Type 2 diabetes, controlled, with neuropathy; History of gastric bypass; Peripheral autonomic neuropathy due to diabetes mellitus; Vitamin D deficiency Social History Tobacco Use [...] AM EDT TH Visit (TeleHealth) [place] [phone] Wyatt Higgins MD [facility] [place] [address] documented as of this encounter Procedures Procedure Name Priority Date/Time Associated Diagnosis Comments HC VITAMIN D TOTAL-25 HYDROXY Routine 02/20/2023 1:02 PM EDT History of gastric bypass Vitamin D deficiency HC THYROID STIMULATING HORMONE, SERUM Routine 02/20/2023 1:02 PM EDT Hypothyroidism, acquired HC HEMOGLOBIN A1C Routine 02/20/2023 1:0 2 PM EDT Type 2 diabetes, controlled, with neuropathy History of gastric bypass Peripheral autonomic neuropathy due to diabetes mellitus documented in this encounter Results * Vitamin D, 25-Hydroxy (02/20/2023 1:02 PM EDT) 25-OH Vit D Total 43 21 - 100 ng/mL [facility] 25-OH Vit D Interp Sufficient [facility] Blood 02/20/2023 1:02 PM EDT 02/20/2023 1:10 PM EDT Narrative Resulting Agency Comment Spec In Lab Judith Reinoso MD CHEMISTRY ORDERAB LES [facility] [place] [address] * (ABNORMAL) Hemoglobin A1c (02/20/2023 1:02 PM EDT) Hemoglobin A1C 6.4(H) 4.3 - 5.6 % [facility] Comment: Reference Range: 4.3 - 5.6% [...] 1, S67-74 Est Avg Gluc 137 mg/dL [facility] Comment: eAG equivalents for HbA1c percentages: [...] into estimated average glucose values. ??Diabetes Care 2008:31(8):2510-7432. Blood 02/20/2023 1:02 PM EDT 02/20/2023 1:10 PM EDT Narrative Resulting Agency Comment Spec In Lab Judith Reinoso MD CHEMISTRY ORDERAB LES [facility] [place] [address] * TSH (02/20/2023 1:02 PM EDT) TSH 1.80 0.27 - 4.20 mcIU/mL [facility] Comment: Reference Interval (mcIU/mL): Females: ??First Trimester: 0.23-3.88 ??Second Trimester: 0.22-3.90 ??Third Trimester: 0.44-4.66 Blood 02/20/2023 1:02 PM EDT 02/20/2023 1:10 PM EDT Narrative Resulting Agency Comment Spec In Lab Judith Reinoso MD CHEMISTRY ORDERAB LES Performing Organization Address City/State/[facility] Co de Phone Number [facility] [place] [address] documented in this encounter Visit Diagnoses Diagnosis Hypothyroidism, acquired Unspecified hypothyroidism Type 2 diabetes, controlled, with neuropathy Type II or unspecified type diabetes mellitus with neurological manifestations, not stated as uncontrolled History of gastric bypass Bariatric surgery status Peripheral autonomic neuropathy due to diabetes mellitus Type II or unspecified type diabetes mellitus with neurological manifestations, not stated as uncontrolled Vitamin D deficiency Unspecified vitamin D deficiency documented in this encounter Care Teams Journeyman Lineman Relationship Specialty Start Date End Date Ruth Munoz APRN [address] [place] [address] PCP - General Family Medicine 02/05/19 documented as of this encounter
--- OUTSIDE RECORDS SUMMARY | 2024-05-15 11:06 | XMS_ITS | Encounter Summary ---
[place] [address] Care Team Providers Care Sheet Tailer Name Role Phone Ruth Munoz LARRY Primary Care Provider + Reason for Visit * Reason Comments Specialty Refill Management Encounter Details Date Type Department Care Team (Late st Contact Info) Description 07/28/2023 Specialty [place] [address] Nura Lozano [facility] Social History Tobacco Use Types Packs/Day Years [...] as of this encounter Progress Notes * Nura Lozano [facility] - 07/28/2023 3:03 PM EDT Clinical Management Plan: Refill Specialty Pharmacy Consultation; Nura Lozano [facility] Comprehensive Medication Management (CMM) Martha Benoit Ms. Marthayi Benoit is a 57 y.o. (1965) female who was contacted in regard to a specialty medication refill reminder. Contact made with patient regarding cosentyx. A review of the medication therapy was [...] [facility] med list) No Specialty Pharmacy Refill Questionnaire More data exists 07/28/2023 Refill Questionnaire What is the name of the specialty medication you are refilling? cosentyx Are you taking any new medications? No Any new medical condition? No Any new allergies? No Any new side effects that are bothersome? No What date will you need this fill by? 08/04/2023 Adherence: Any missed doses? No Patient understands no changes to current drug regimen were made. Nura Lozano RPH 07/28/23 3:05 PM documented in this encounter Plan of Treatment Upcoming Encounters Date Type Department Care Team (Late st Contact Info) Description 02/19/2025 9:00 AM EDT TH Visit (TeleHealth) [place] [address] Wyatt Higgins MD [facility] [address] documented as of this encounter Visit Diagnoses Not on filedocumented in this encounter Care Teams Sheet Tailer Relationship Specialty Start Date End Date Ruth Munoz APRN [address] [place] [address] PCP - General Family Medicine 02/05/19 documented as of this encounter
--- OUTSIDE RECORDS SUMMARY | 2024-05-15 11:06 | XMS_ITS | Encounter Summary ---
Author Organization [facility] [place] [address] Care Team Providers Care Airline Stewardess Name Role Phone MunozRuth jerome Lilibeth JUAREZ Primary Care Provider + Encounter Details Date Type Department Care Team (Late st Contact Info) Description 04/04/2023 Telephone [place] [phone] Wyatt Higgins MD [facility] [place] [address] Social History Tobacco Use Types Packs/Day Years [...] encounter Miscellaneous Notes * Telephone Encounter - Bridget Mccormack - 04/04/2023 3:29 PM EDT Patient calling to schedule 1 year follow up. documented in this encounter Plan of Treatment Upcoming Encounters Date Type Department Care Team (Late st Contact Info) Description 02/19/2025 9:00 AM EDT TH Visit (TeleHealth) [place] [address] Wyatt Higgins MD [facility] [place] [address] documented as of this encounter Visit Diagnoses Not on filedocumented in this encounter Care Teams Airline Stewardess Relationship Specialty Start Date End Date Ruth Munoz, HEATING AND VENTILATING TENDER [address] [place] [address] PCP - General Family Medicine 02/05/19 documented as of this encounter
--- OUTSIDE RECORDS SUMMARY | 2024-05-15 11:06 | XMS_ITS | Encounter Summary ---
[place] [address] Care Team Providers Care Language Assistant Name Role Phone Ruth Munoz LARRY Primary Care Provider + Reason for Visit * Reason Comments Specialty Refill Management Encounter Details Date Type Department Care Team (Late st Contact Info) Description 06/09/2022 Specialty [place] [address] Sravanthi Cardoza RPH Social History Tobacco Use [...] Progress Notes * Sravanthi Cardoza RPH - 06/09/2022 12:44 PM EDT Clinical Management Plan: Refill Specialty [...] Known Allergies Medication Reconciliation Discrepancies (compared to [facility] med list) No Specialty Pharmacy Refill Questionnaire Refill Questionnaire 06/09/2022 What is the name of the specialty medication you are refilling? Cosentyx Are you taking any new medications? No Any new medical condition? No Any new allergies? No Any new side effects that are bothersome? No What date will you need this fill by? (No Data) Adherence: Any missed doses? No Patient understands no changes to current drug regimen were made. Sravanthi Cardoza RPH 06/09/22 12:48 PM documented in this encounter Plan of Treatment Upcoming Encounters Date Type Department Care Team (Late st Contact Info) Description 02/19/2025 9:00 AM EDT TH Visit (TeleHealth) [place] [address] Wyatt Higgins MD [facility] [place] [address] documented as of this encounter Visit Diagnoses Not on filedocumented in this encounter Care Teams Language Assistant Relationship Specialty Start Date End Date Ruth Munoz APRN [address] [place] [address] PCP - General Family Medicine 02/05/19 documented as of this encounter
--- OUTSIDE RECORDS SUMMARY | 2024-05-15 11:06 | XMS_ITS | Encounter Summary ---
[place] [address] Care Team Providers Care Organic Preparation Analyst Name Role Phone Ruth Munoz LARRY Primary Care Provider + Reason for Visit * Reason Comments Medication Management Encounter Details Date Type Department Care Team (Late st Contact Info) Description 02/07/2023 Specialty [place] [address] Nura Lozano [facility] Social History Tobacco Use Types Packs/Day [...] this encounter Progress Notes * Nura Lozano [facility] - 02/07/2023 11:43 AM EDT Clinical Management Plan: Refill Specialty Pharmacy Consultation; Nura Lozano [facility] Comprehensive Medication Management (CMM) Martha Benoit Ms. [...] Known Allergies Medication Reconciliation Discrepancies (compared to [facility] med list) No Specialty Pharmacy Refill Questionnaire 02/07/2023 Refill Questionnaire What is the name of the specialty medication you are refilling? cosentyx Are you taking any new medications? No Any new medical condition? No Any new allergies? No Any new side effects that are bothersome? No What date will you need this fill by? 02/25/2023 Adherence: Any missed doses? No Patient understands no changes to current drug regimen were made. Nura Lozano RPH 02/07/23 11:47 AM documented in this encounter Plan of Treatment Upcoming Encounters Date Type Department Care Team (Late st Contact Info) Description 02/19/2025 9:00 AM EDT TH Visit (TeleHealth) [place] [address] Wyatt Higgins MD [facility] [address] documented as of this encounter Visit Diagnoses Not on filedocumented in this encounter Care Teams Organic Preparation Analyst Relationship Specialty Start Date End Date Ruth Munoz APRN [address] [place] [address] PCP - General Family Medicine 02/05/19 documented as of this encounter
--- OUTSIDE RECORDS SUMMARY | 2024-05-15 11:06 | XMS_ITS | Encounter Summary ---
Author Organization [facility] [place] [address] Care Team Providers Care Oracle Database Manager Name Role Phone Ruth Munoz Lilibeth JUAREZ Primary Care Provider + Reason for Visit * Reason Onset Date Comments Other 06/16/2022 Encounter Details Date Type Department Care Team (Late st Contact Info) Description 06/16/2022 [place] [address] Wyatt Higgins MD [facility] [place] [address] Other Social History Tobacco Use Types Packs/Day [...] encounter Miscellaneous Notes * Telephone Encounter - Natalia Zacarias RN - 06/16/2022 12:52 PM EDT Spoke with Martha. Confirmed that she should take one Alpha Lipoic acid 600 mg tablets twice daily as prescribed by Dr. Higgins. Martha understands and agrees. She now buys it OTC. Medicaid no longer covers.. * Telephone Encounter - Kate Abbott RN - 06/16/2022 12:18 PM EDT Copied from CRM #[id number]. Topic: Specialty Dept CRMs - Medication Issues >> Jun 16, 2022 12:14 PM Gloria Mulligan wrote: Medication Issues Specialist Dr. Higgins Relationship (if other than patient-full name): Martha Benoit Reason for call: Medication Issue (if symptom based used Triage Subtopic) Message/information for the nurse: clarification on dosing Name of Medication: alpha lipoic acid 600 mg Tablet Issue with the medication: Patient bought OTC bottle (sundZapMe brand) instead of filling prescription, as insurance may not pay for it. Dr. Higgins recommended patient take 2 capsules of 600mg a day, but patient's OTC says 1 capsule per day. Patient just looking to confirm that it is ok to take 2. documented in this encounter Plan of Treatment Upcoming Encounters Date Type Department Care Team (Late st Contact Info) Description 02/19/2025 9:00 AM EDT TH Visit (TeleHealth) [place] [address] Wyatt Higgins MD [facility] [place] [address] documented as of this encounter Visit Diagnoses Not on filedocumented in this encounter Care Teams Oracle Database Manager Relationship Specialty Start Date End Date Ruth Munoz APRN [address] [place] [address] PCP - General Family Medicine 02/05/19 documented as of this encounter
--- OUTSIDE RECORDS SUMMARY | 2024-05-15 11:06 | XMS_ITS | Encounter Summary ---
[place] [address] Care Team Providers Care Directory Assistance Operator Name Role Phone Ruth Munoz LARRY Primary Care Provider + Encounter Details Date Type Department Care Team (Late st Contact Info) Description 01/15/2024 Telephone [place] [address] Shari Keller RN Social History Tobacco Use [...] encounter Miscellaneous Notes * Telephone Encounter - Shari Keller RN - 01/15/2024 4:16 PM EDT Copied from CRM #[id number]. Topic: Specialty Dept CRMs - Orders >> Jan 15, 2024 3:25 PM Dayanara Mcelroy wrote: Orders Request Specialist: Kemar Relationship (if other than patient-full name): self Type of Request: [x] Input orders Type/Name of Order: Labs If Labs and Imaging list name of specific test(s): labs Date of Lab/Imaging/Testing Appt: Date of Provider Appt: 05/03/24 Appt Type with Provider: MIGUEL Patient Requesting to Have Orders Sent to Facility Outside of [facility]: Yes If Yes, Name of Facility: [facility] Address: [address] [place] [address] , [place] [address] ?? Phone #: [phone] Fax #: unknown documented in this encounter Plan of Treatment Upcoming Encounters Date Type Department Care Team (Late st Contact Info) Description 02/19/2025 9:00 AM EDT TH Visit (TeleHealth) [place] [address] Wyatt Higgins MD [facility] [place] [address] Scheduled Orders Name Type Priority Associated Diagnoses Orde r Schedule Vitamin D, 25-Hydroxy Lab Routine Vitamin D deficiency Expected: 01/15/2024 (Approximate), Expires: 01/14/2025 Hemoglobin A1c Lab Routine Type 2 diabetes, controlled, with neuropathy Expected: 01/15/2024 (Approximate), Expires: 01/14/2025 TSH Lab Routine Hypothyroidism, acquired Expected: 01/15/2024 (Approximate), Expires: 01/14/2025 documented as of this encounter Visit Diagnoses Diagnosis Vitamin D deficiency Unspecified vitamin D deficiency Type 2 diabetes, controlled, with neuropathy Type II or unspecified type diabetes mellitus with neurological manifestations, not stated as uncontrolled Hypothyroidism, acquired Unspecified hypothyroidism documented in this encounter Care Teams Directory Assistance Operator Relationship Specialty Start Date End Date Ruth Munoz APRN [address] [place] [address] PCP - General Family Medicine 02/05/19 documented as of this encounter
--- OUTSIDE RECORDS SUMMARY | 2024-05-15 11:06 | XMS_ITS | Encounter Summary ---
[place] [address] Care Team Providers Care Showroom Consultant Name Role Phone Ruth Munoz Lilibeth JUAREZ Primary Care Provider + Reason for Visit * Reason Comments Prior Authorization Cosentyx Sensoready 150mg/ml SOAJ Encounter Details Date Type Department Care Team (Late st Contact Info) Description 07/11/2022 Specialty [place] [address] Gertrudis Siddiqi, NEWS AGENT Social History Tobacco Use Types Packs/Day Years [...] as of this encounter Progress Notes * Gertrudis Siddiqi - 07/11/2022 11:08 AM EDT [facility], Medication Prior Authorization Submission Patient: Martha Marrry Patient : 1965 Patient Address: [address] [facility] [address] (home) Medication Name: COSENTYX PEN 300 MG/2 PENS (150 MG/ML) SUBCUTANEOUS Medication ID: [id number] Subscriber Insurance: [place] Medicaid Subscriber Insurance Comment: Fax: Physician: TERRANCE LYNN Physician Comment: Sent Via: [facility] Kessler: [id number] Ref/Case/PA#: Medication Strength Frequency Requested: Cosentyx 150mg/ml, INJECT THE CONTENTS OF TWO PENS (300 MG) SUBCUTANEOUSLY ONCE EVERY 28 DAYS Qty/Day Supply: 12/20 New Start: Renewal Diagnosis & ICD-10 Code: Psoriasis L40.9 Patient Notified: No Submission Notes: None Gertrudis Siddiqi 07/11/22 11:11 AM * Gertrudis Siddiqi - 07/11/2022 11:08 AM EDT [facility], Prior Authorization Approval Medication Name: COSENTYX PEN 300 MG/2 PENS (150 MG/ML) SUBCUTANEOUS Medication ID: [id number] Approval Dates: 07/11/2022 to 07/11/2023 Insurance requirements/notes: None Other Notes: None Case/Reference #: [id number] Approval notification Received via: Fax Copay: 3.00 Copay assistance: Copay Notes: Patient has $3.00 copay Insurance mandated Pharmacy: [facility] Fillable at [facility]: Yes Pharmacy staff will be reaching out to the patient to inform them of their medication[facility]. If applicable, a pharmacist will speak with the patient to offer our specialty pharmacy services and to arrange delivery of their medication. Gertrudis Siddiqi 07/11/22 2:26 PM documented in this encounter Plan of Treatment Upcoming Encounters Date Type Department Care Team (Late st Contact Info) Description 02/19/2025 9:00 AM EDT TH Visit (TeleHealth) [place] [address] Wyatt Higgins MD [facility] [place] [address] documented as of this encounter Visit Diagnoses Not on filedocumented in this encounter Care Teams Showroom Consultant Relationship Specialty Start Date End Date Ruth Munoz, EXTRUSION PROCESS OPERATOR [address] [place] [address] PCP - General Family Medicine 02/05/19 documented as of this encounter
--- OUTSIDE RECORDS SUMMARY | 2024-05-15 11:06 | XMS_ITS | Encounter Summary ---
[place] [address] Care Team Providers Care Bad Cloth Checker Name Role Phone Ruth Munoz LARRY Primary Care Provider + Reason for Visit * Reason Comments Specialty Refill Management Encounter Details Date Type Department Care Team (Late st Contact Info) Description 09/30/2022 Specialty [place] [address] Sravanthi Cardoza RPH Social History Tobacco Use [...] Progress Notes * Sravanthi Cardoza RPH - 09/30/2022 12:25 PM EST Clinical Management Plan: Refill Specialty [...] Known Allergies Medication Reconciliation Discrepancies (compared to [facility] med list) No Specialty Pharmacy Refill Questionnaire Refill Questionnaire 09/30/2022 What is the name of the specialty medication you are refilling? Cosentyx Are you taking any new medications? No Any new medical condition? No Any new allergies? No Any new side effects that are bothersome? No What date will you need this fill by? 10/08/2022 Adherence: Any missed doses? No Patient understands no changes to current drug regimen were made. Sravanthi Cardoza RPH 09/30/22 12:28 PM documented in this encounter Plan of Treatment Upcoming Encounters Date Type Department Care Team (Late st Contact Info) Description 02/19/2025 9:00 AM EDT TH Visit (TeleHealth) [place] [address] Wyatt Higgins MD [facility] [place] [place] [address] documented as of this encounter Visit Diagnoses Not on filedocumented in this encounter Care Teams Bad Cloth Checker Relationship Specialty Start Date End Date Ruth Munoz APRN [address] [place] [address] PCP - General Family Medicine 02/05/19 documented as of this encounter
--- OUTSIDE RECORDS SUMMARY | 2024-05-15 11:06 | XMS_ITS | Encounter Summary ---
[place] [address] Care Team Providers Care Airport Screener Name Role Phone Ruth Munoz LARRY Primary Care Provider + Reason for Visit * Reason Comments Medication Management Medication Refill Encounter Details Date Type Department Care Team (Late st Contact Info) Description 12/20/2023 Specialty [place] [address] Bria Yousif RPH Social History Tobacco Use Types Packs/Day [...] as of this encounter Progress Notes * Bria Yousif RPH - 12/20/2023 4:28 PM EST Clinical Management Plan: Refill Specialty Pharmacy Consultation; Bria Yousif RPH Comprehensive Medication Management (CMM) Martha Benoit MsEdvin Martha Moon Benoit is a 58 y.o. (1965) female [...] Known Allergies Medication Reconciliation Discrepancies (compared to [facility] med list) No Specialty Pharmacy Refill Questionnaire More data exists 12/20/2023 Refill Questionnaire What is the name of the specialty medication you are refilling? Cosentyx Are you taking any new medications? No Any new medical condition? No Any new allergies? No Any new side effects that are bothersome? No What date will you need this fill by? 12/23/2023 Adherence: Any missed doses? No Patient understands no changes to current drug regimen were made. Bria Yousif RPH 12/20/23 4:32 PM documented in this encounter Plan of Treatment Upcoming Encounters Date Type Department Care Team (Late st Contact Info) Description 02/19/2025 9:00 AM EDT TH Visit (TeleHealth) [place] [address] Wyatt Higgins MD [facility] [place] [address] documented as of this encounter Visit Diagnoses Not on filedocumented in this encounter Care Teams Airport Screener Relationship Specialty Start Date End Date Ruth Munoz APRN [address] [place] [address] PCP - General Family Medicine 02/05/19 documented as of this encounter
--- OUTSIDE RECORDS SUMMARY | 2024-05-15 11:06 | XMS_ITS | Encounter Summary ---
[place] [address] Care Team Providers Care Manager Reimbursement Name Role Phone Ruth Munoz LARRY Primary Care Provider + Reason for Visit * Reason Comments Prior Authorization Cosentyx sensoready (300 m 150 soaj Encounter Details Date Type Department Care Team (Late st Contact Info) Description 07/12/2023 Specialty [place] [address] Joanne Sheth, PRODUCTION HARDENER Social History Tobacco Use Types Packs/Day Years [...] as of this encounter Progress Notes * Joanne Shteh - 07/12/2023 11:46 AM EDT [facility], Medication Prior Authorization Submission Patient: Martha Benoit Patient : 1965 Patient Address: [address] [facility] [address] (home) Medication Name: COSENTYX PEN 300 MG/2 PENS (150 MG/ML) SUBCUTANEOUS Medication ID: [id number] Subscriber Insurance: [place] Medicaid Subscriber Insurance Comment: Phone: Fax: Physician: TERRANCE LYNN Physician Comment: Sent Via: [facility] [place]: [id number] Ref/Case/PA#: Medication Strength Frequency Requested: INJECT THE CONTENTS OF TWO PENS (300 MG) SUBCUTANEOUSLY ONCE EVERY 28 DAYS Qty/Day Supply: 12/20 New Start: Renewal Diagnosis & ICD-10 Code: Psoriasis L40.9 Patient Notified: No Submission Notes: Ju Sheth 07/12/23 11:47 AM * Joanne Sheth - 07/12/2023 11:46 AM EDT [facility], Prior Authorization Approval Medication Name: COSENTYX PEN 300 MG/2 PENS (150 MG/ML) SUBCUTANEOUS Medication ID: [id number] Approval Dates: 07/12/2023 to 07/12/2024 Insurance requirements/notes: None Other Notes: None Case/Reference #: [id number] Approval notification Received via: Fax Copay: $3.00 Copay assistance: Copay Notes: Per fill hx, $3.00 copay Insurance mandated Pharmacy: [facility] Fillable at [facility]: Yes Patient Notified: No Pharmacy staff will be reaching out to the patient to inform them of their medication's [facility]. If applicable, a pharmacist will speak with the patient to offer our specialty pharmacy services and to arrange delivery of their medication. Joanne Sheth 07/12/23 12:40 PM documented in this encounter Plan of Treatment Upcoming Encounters Date Type Department Care Team (Late st Contact Info) Description 02/19/2025 9:00 AM EDT TH Visit (TeleHealth) [place] [address] Wyatt Higgins MD [facility] [place] [address] documented as of this encounter Visit Diagnoses Not on filedocumented in this encounter Care Teams Manager Reimbursement Relationship Specialty Start Date End Date Ruth Munoz, HEALTH POLICY ANALYST [address] [place] [address] PCP - General Family Medicine 02/05/19 documented as of this encounter
--- OUTSIDE RECORDS SUMMARY | 2024-05-15 11:06 | XMS_ITS | Encounter Summary ---
Author Organization [facility] [place] [address] Care Team Providers Care Technician'S Helper Name Role Phone Alexander Ruth Mcelroy APRN Primary Care Provider + Encounter Details Date Type Department Care Team (Latest Contact Info) Description 04/26/2023 9:30 AM EDT TH Visit (TeleHealth) [place] [address] Judith Reinoso MD [facility] [place] [address] History of gastric bypass; Vitamin D deficiency; Type 2 diabetes, controlled, with neuropathy; Peripheral autonomic neuropathy due to diabetes mellitus; Hypothyroidism, acquired Social History Tobacco Use Types Packs/Day Years [...] - - Temperature - - Respiratory Rate 16 04/26/2023 9:23 AM EDT Oxygen Saturation - - Inhaled Oxygen Concentration - - Weight 72.6 kg (160 lb) 04/26/2023 9:23 AM EDT Height 160 cm (5' 3) 04/26/2023 9:23 AM EDT Body Mass Index 28.34 04/26/2023 9:23 AM EDT documented in this encounter Patient Instructions * Patient Instructions* Judith Reinoso MD - 04/26/2023 9:30 AM EDT Plan: 1. Medication: To continue levothyroxine 25 mcg daily on empty stomach at least 30 mins before breakfast. Target TSH 0.5-3.0 for her weight and fatigue. Adjustment of diabetes treatment regime: To continue 70/30 mix 0-10u 2-3x/day => STOP while NPO To use Humalog pen sensitive sliding scale as needed if BG>160 (based on 1u:40 BG ratio; 160-1u,200-2u, 240-3u, 280-4u, etc). To cont glipizideER 10 mg qAM &PM => STOP while NPO To continue invokana 300 mg qAM => STOP 3 days prior to surgery To cont metformin 500 mg tid (could not tolerate a higher dose) => STOP while NPO To cont vitamin D 50,000 iu weekly and 2 of [place] MVI with iron which contains iron (she [...] every 3-6 months with PCP for her A1c, TSH at [facility] lab and will let her know the results during the interim. 5. RTC: Next visit in 12 months (for 8-y post gastric bypass) or earlier needed. Will check annual lab before next visit for HbA1c, CBC, CMP, lipids, TSH, 25vitamin D, B12, iron/TIBC and annual urinemicroalbumin/Cr. documented in this encounter Progress Notes * Judith Reinoso MD - 04/26/2023 9:30 AM EDT Endocrine Clinic Name: Jo Jones : 1965 Date: 04/26/2023 PCP: Ruth Munoz APRN Patient verbally consents to this telehealth visit and understands that this visit may be billed, similar to a clinic office visit. I provided care to the patient today via VDO/Phone call. The total time associated with this visit,chart review, documentation, and coordination of care was 35 minutes. Reason for visit: Follow-up Type 2 diabetes s/p bariatric surgery 7 yrs ago (Dr. Mai on 01/04/16) with wt loss of 75-90 bs since the surgery with BMI 28 out of obesity now). Also, hypothyroid withTSH 4.31 on levothyroxine 25 mcg qd with normalized TSH 1.8-2.07 and treated for vitamin D deficiency. She now has uterine prolapse with plan for pelvic sling surgery per her PATIENT SUPPORT ASSOCIATE (not scheduled yet). HPI: Jo Jones is a 57 y.o. lady : Diabetes treatment regimen: 70/30 mix pen 0-5 u in AM, 0-5u lunch, 10u for dinner 2-3x/day Novolog sliding scale p.r.n for correction of [...] 6.4 (H) Previous A1c (including outside lab): 7.8% on 07/02/20, 6.8% on 02/05/20, 7.3% [...] recently. She kept her weight stable at 160 lb (down from 175-185 lbs range last year) and used to weigh 250slbs before gastric bypass in 2015. She tried to cut back on carb so she can reduce 70/30 mix insulin up to 10u (mostly 0-5u tid typically more at dinner). She cannot exercise due to foot drop bilaterally and using walker and now notes uterine prolapse and plans for pelvic sling surgery with her PATIENT SUPPORT ASSOCIATE (not scheduled yet). A1c was stable at 6.4-7.5% range excellent. Her insurance covered for mix 70/30 insulin well. She is now ~7year post bariatric surgery and better from her [...] now out of obesity range with BMI 28 which is excellent. Her vitamin D was better, up from 18 to 28-29 and then 40-70 (nl 30-100) on vit D 50,000 weekly higher dose since Jul 2017. She has been taking [place] multivitamin to 2 tab daily with normal [...] K21.9 Iron deficiency E61.1 Memory loss R41.3 Current Outpatient Medications on File Prior to Visit Medication Sig Dispense Refill secukinumab (Cosentyx Pen) 150 mg/mL Pen Injector Inject 300 mg subcutaneously every 28 days. 2 mL 11 cyanocobalamin, vitamin B-12, (Vitamin B-12) 500 mcg tablet Take 500 mcg by mouth daily. hydroquinone (Gogo) 4 % Cream Apply twice daily to face for 6 weeks, then D/C 30 g 2 FreeStyle Lite Meter Kit 1 each by [facility]Non-Drug; Combo Route) route daily. 1 each 0 levothyroxine (Synthroid) 25 mcg Tablet TAKE ONE TABLET BY MOUTH EVERY DAY 90 tablet 2 triamcinolone (Kenalog) 0.1 % Cream APPLY TOPICALLY TO THE AFFECTED AREA TWO TIMES A DAY NEEDED 454 g 0 triamcinolone (Kenalog) 0.1 % Ointment APPLY TOPICALLY TO THE LEGS, ARMS, AND ABDOMEN AREA TWICE A DAY NEEDED 454 g 0 ergocalciferoL, vitamin D2, (vitamin D2) 50,000 unit Capsule TAKE ONE CAPSULE BY MOUTH EVERY WEEK 12 capsule 3 Invokana 300 mg Tablet TAKE ONE TABLET BY MOUTH EVERY DAY 90 tablet 3 estradioL (ESTRACE) 0.01 % (0.1 mg/gram) Cream [...] to twice a day. 60 mL 1 insulin aspart protamine-insulin aspart 70/30 (novoLOG Mix 70-30 FlexPen) 100 unit/mL (70-30) Insulin Pen INJECT 20-30 UNITS UNDER THE SKIN THREE TIMES A DAY 60 mL 3 fluconazole (Diflucan) 150 mg Tablet Take 1 tablet by mouth as needed (for yeast infection). Once per day 3 tablet 3 cyclobenzaprine (Flexeril) 10 mg Tablet Take 10 mg by mouth nightly. UNABLE TO FIND Med Name: Kenji vitamins take one tablet by mouth twice [...] Never Smokeless tobacco: Never Vaping Use Vaping Use: Never used Substance and Sexual Activity Alcohol use: No Drug use: No Sexual activity: Not on file Comment: deferred Other Topics Concern Not on file Social History Narrative Not on file Social Determinants of Health Financial Resource Strain: Not on file Food Insecurity: Not on file Transportation Needs: Not on file Physical Activity: Not on file Housing Stability: Not on file FAMILY HISTORY Family History Problem Relation Age of Onset Diabetes Mother Diabetes Father Diabetes Other High Cholesterol Other Hypertension Other Stroke Other Obesity Other Psoriasis Other * Other congenital malformation in her son/kidney stone Physical exam Resp 16 Ht 160 cm (5' 3) Wt 72.6 kg (160 lb) LMP 10/30/2015 (Approximate) BMI 28.34 kg/m?? Deferred. PE from last in-person visit: [...] 400 ng/mL 34 Heavy Metals Unknown ... Latest Reference Range & Units 02/20/23 13:02 Hemoglobin A1C 4.3 - 5.6 % 6.4 (H) Est Avg Gluc mg/dL 137 25-OH Vit D Total 21 - 100 ng/mL 43 25-OH Vit D Interp Sufficient TSH 0.27 - 4.20 mcIU/mL 1.80 (H): Data is abnormally high Assessment: 57 y.o. lady with better BG and A1c down to 6.4-7.5% on low dose 70/30 mix insulin 0-10u bid/tid, Invokana, metformin, glipizide for her Diabetes Type 2. She had gastric bypass surgery ~ 7 year ago (Dr. Mai on 01/04/16) with wt loss of ~90 bs and BMI 28 out of obesity now). Also, hypothyroid with TSH 4.31 on levothyroxine 25 mcg qd with normalized TSH 1.8-2.07 and treated for vitamin D deficiency. She now has uterine prolapse with plan for pelvic sling surgery per her PATIENT SUPPORT ASSOCIATE (not scheduled yet) => will need to hold ALL DM meds the day of surgery and to hold Invokana 3 days prior to the surgery and simply use Humalog sensitive sliding scale q4h p.r.n if high BG>160. She had good c-peptide 2.9 from her own insulin production which is good news but not enough for her body need due to underlying insulin resistance but should be fine while fasting without insulin orpills for the day of surgery. She is pleased with her wt & A1c results and wants to lose wt further and to keep A1c < 6.5-7% further for her diabetic neuropathy. Complication Risk Status: complications present +peripheral neuropathy [...] diabetes treatment regime: To continue 70/30 mix 0-10u 2-3x/day => STOP while NPO To use Humalog pen sensitive sliding scale as needed if BG>160 (based on 1u:40 BG ratio; 160-1u,200-2u, 240-3u, 280-4u, etc). To cont glipizideER 10 mg qAM &PM => STOP while NPO To continue invokana 300 mg qAM => STOP 3 days prior to surgery To cont metformin 500 mg tid (could not tolerate a higher dose) => STOP while NPO To cont vitamin D 50,000 iu weekly and 2 of [place] MVI with iron which contains iron (she [...] every 3-6 months with PCP for her A1c, TSH at [facility] lab and will let her know the results during the interim. 5. RTC: Next visit in 12 months (for 8-y post gastric bypass) or earlier needed. Will check annual lab before next visit for HbA1c, CBC, CMP, lipids, TSH, 25vitamin D, B12, iron/TIBC and annual urinemicroalbumin/Cr. We have reviewed our plan outlined above [...] AM EDT TH Visit (TeleHealth) [place] [address] Wyatt Higgins MD [facility] [place] [address] documented as of this encounter Visit Diagnoses Diagnosis History of gastric bypass Bariatric surgery status Vitamin D deficiency Unspecified vitamin D deficiency Type 2 diabetes, controlled, with neuropathy Type II or unspecified type diabetes mellitus with neurological manifestations, not stated as uncontrolled Peripheral autonomic neuropathy due to diabetes mellitus Type II or unspecified type diabetes mellitus with neurological manifestations, not stated as uncontrolled Hypothyroidism, acquired Unspecified hypothyroidism documented in this encounter Care Teams Technician'S Helper Relationship Specialty Start Date End Date Ruth Munoz APRN [address] [place] [address] PCP - General Family Medicine 02/05/19 documented as of this encounter
--- OUTSIDE RECORDS SUMMARY | 2024-05-15 11:06 | XMS_ITS | Encounter Summary ---
[facility] [place] [address] Care Team Providers Care Utilization Reviewer Name Role Phone Ruth Munoz LARRY Primary Care Provider + Encounter Details Date Type Department Care Team (Late st Contact Info) Description 02/05/2024 Refill Dermatology at [address] [address] Lydia Funes RN Social History Tobacco Use Types Packs/Day [...] encounter Miscellaneous Notes * Telephone Encounter - Lydia Funes RN - 02/05/2024 2:25 PM EDT [facility] pharmacy contacted the office and stated that the patient has no more refills on her Rx. Noted on not 03/21/2023 prescription was sent for a year supply. Louis at the pharmacy is not sure what happened with the prescription but they have no refills. Resent prescription Cosentyx injecting 300mg subcutaneously ( 150mg pen inject 2 pens) every 28 days with 2 refills. This will cover patient for January, February and March dosage. Patient last seen on 03/21/2024 and has a follow up appointment on 03/29/2024. documented in this encounter Plan of Treatment Upcoming Encounters Date Type Department Care Team (Late st Contact Info) Description 02/19/2025 9:00 AM EDT TH Visit (TeleHealth) [place] [address] Wyatt Higgins MD [facility] [place] [address] documented as of this encounter Visit Diagnoses Not on filedocumented in this encounter Care Teams Utilization Reviewer Relationship Specialty Start Date End Date Ruth Munoz APRN [address] [place] [address] PCP - General Family Medicine 02/05/19 documented as of this encounter
--- OUTSIDE RECORDS SUMMARY | 2024-05-15 11:06 | XMS_ITS | Encounter Summary ---
Author Organization [facility] [address] Care Team Providers Care Inkjet Operator Name Role Phone Ruth Munoz APRN Primary Care Provider + Encounter Details Date Type Department Care Team (Latest Contact Info) Description 02/20/2023 Travel Social History Tobacco Use Types Packs/Day [...] AM EDT TH Visit (TeleHealth) [place] [address] Wyatt Higgins MD [facility] [place] [address] documented as of this encounter Visit Diagnoses Not on filedocumented in this encounter Care Teams Inkjet Operator Relationship Specialty Start Date End Date Ruth Munoz, OUTSIDE SALES REPRESENTATIVE [address] [place] [address] PCP - General Family Medicine 02/05/19 documented as of this encounter
--- OUTSIDE RECORDS SUMMARY | 2024-05-15 11:06 | XMS_ITS | Encounter Summary ---
[place] [address] Care Team Providers Care Ribbon Cutter Name Role Phone Ruth Munoz LARRY Primary Care Provider + Reason for Visit * Reason Comments Specialty Refill Management Encounter Details Date Type Department Care Team (Late st Contact Info) Description 11/16/2023 Specialty [place] [address] Sravanthi Cardoza RPH Social History Tobacco Use [...] Progress Notes * Sravanthi Cardoza RPH - 11/16/2023 11:41 AM EST Clinical Management Plan: Refill Specialty Pharmacy Consultation; Sravanthi Cardoza RPH Comprehensive Medication Management (CMM) Martha Benoit Ms. Martha Moon Benoit is a 57 y.o. (1965) female [...] Known Allergies Medication Reconciliation Discrepancies (compared to [facility] med list) No Specialty Pharmacy Refill Questionnaire More data exists 11/16/2023 Refill Questionnaire What is the name of the specialty medication you are refilling? Cosentyx Are you taking any new medications? No Any new medical condition? No Any new allergies? No Any new side effects that are bothersome? No Adherence: Any missed doses? No Patient understands no changes to current drug regimen were made. Sravanthi Cardoza RPH 11/16/23 11:44 AM documented in this encounter Plan of Treatment Upcoming Encounters Date Type Department Care Team (Late st Contact Info) Description 02/19/2025 9:00 AM EDT TH Visit (TeleHealth) [place] [address] Wyatt Higgins MD [facility] [place] [address] documented as of this encounter Visit Diagnoses Not on filedocumented in this encounter Care Teams Ribbon Cutter Relationship Specialty Start Date End Date Ruth Munoz APRN [address] [place] [address] PCP - General Family Medicine 02/05/19 documented as of this encounter
--- OUTSIDE RECORDS SUMMARY | 2024-05-15 11:06 | XMS_ITS | Encounter Summary ---
Author Organization [facility] [place] [address] Care Team Providers Care Chief Controller Tower Name Role Phone MunozRuth jerome Lilibeth JUAREZ Primary Care Provider + Reason for Visit * Reason Comments Medication Refill Encounter Details Date Type Department Care Team (Late st Contact Info) Description 02/11/2024 Refill [place] [address] Judith Reinoso MD [facility] [place] [address] Social History Tobacco Use Types Packs/Day Years [...] AM EDT TH Visit (TeleHealth) [place] [address] Wyatt Higgins MD [facility] [place] [address] documented as of this encounter Visit Diagnoses Not on filedocumented in this encounter Care Teams Chief Controller Tower Relationship Specialty Start Date End Date Ruth Munoz, LARRY [address] [place] [address] PCP - General Family Medicine 02/05/19 documented as of this encounter
--- OUTSIDE RECORDS SUMMARY | 2024-05-15 11:06 | XMS_ITS | Encounter Summary ---
[place] [address] Care Team Providers Care Guard Immigration Name Role Phone Ruth Munoz LARRY Primary Care Provider + Reason for Visit * Reason Comments Medication Management Patient Education Encounter Details Date Type Department Care Team (Late st Contact Info) Description 06/07/2023 Specialty Pharmacy [place] [address] Nura Lozano [facility] Social History Tobacco Use Types Packs/Day Years [...] this encounter Progress Notes * Nura Lozano Aline - 06/07/2023 3:48 PM EDT Clinical Management Plan: Refill Specialty [...] Specialty Pharmacy Refill Questionnaire More data exists 06/07/2023 Refill Questionnaire What is the name of the specialty medication you are refilling? cosentyx Are you taking any new medications? No Any new medical condition? No Any new allergies? No Any new side effects that are bothersome? No What date will you need this fill by? 06/13/2023 Adherence: Any missed doses? No Patient understands no changes to current drug regimen were made. Nura Lozano RPH 06/07/23 3:49 PM documented in this encounter Plan of Treatment Upcoming Encounters Date Type Department Care Team (Late st Contact Info) Description 02/19/2025 9:00 AM EDT TH Visit (TeleHealth) [place] [address] Wyatt Higgins MD [facility] [address] documented as of this encounter Visit Diagnoses Not on filedocumented in this encounter Care Teams Guard Immigration Relationship Specialty Start Date End Date Ruth Munoz APRN [address] [place] [address] PCP - General Family Medicine 02/05/19 documented as of this encounter
--- OUTSIDE RECORDS SUMMARY | 2024-05-15 11:06 | XMS_ITS | Encounter Summary ---
[place] [address] Care Team Providers Care Energy Infrastructure Engineer Name Role Phone MunozRuth jerome Lilibeth JUAREZ Primary Care Provider + Reason for Visit * Reason Comments Medication Refill Encounter Details Date Type Department Care Team (Late st Contact Info) Description 08/23/2022 Refill Dermatology at [address] [place] [address] Galdino Gilliland MD [address] [facility] [place] [address] Social History Tobacco Use Types Packs/Day Years [...] AM EDT TH Visit (TeleHealth) [place] [phone] Wyatt Higgins MD [facility] [place] [address] documented as of this encounter Visit Diagnoses Not on filedocumented in this encounter Care Teams Energy Infrastructure Engineer Relationship Specialty Start Date End Date Ruth Munoz APRN [address] [place] [address] PCP - General Family Medicine 02/05/19 documented as of this encounter
--- OUTSIDE RECORDS SUMMARY | 2024-05-15 11:06 | XMS_ITS | Encounter Summary ---
[place] [address] Care Team Providers Care Resistance Welding Machine Operator Name Role Phone Ruth Munoz LARRY Primary Care Provider + Reason for Visit * Reason Comments Medication Management Medication Refill Encounter Details Date Type Department Care Team (Late st Contact Info) Description 10/31/2022 Specialty Pharmacy [place] [address] Ximena Wolf RPH Social History Tobacco Use Types Packs/Day [...] as of this encounter Progress Notes * Ximena Wolf RPH - 10/31/2022 3:19 PM EST Clinical Management Plan: Refill Specialty Pharmacy Consultation; Ximena Wolf RPH Comprehensive Medication Management (CMM) Martha Benoit [...] Known Allergies Medication Reconciliation Discrepancies (compared to [facility] med list) No Specialty Pharmacy Refill Questionnaire Refill Questionnaire 10/31/2022 What is the name of the specialty medication you are refilling? Cosentyx Are you taking any new medications? No Any new medical condition? No Any new allergies? No Any new side effects that are bothersome? No What date will you need this fill by? 11/05/2022 Adherence: Any missed doses? No Patient understands no changes to current drug regimen were made. Ximena Wlof RPH 10/31/22 3:20 PM documented in this encounter Plan of Treatment Upcoming Encounters Date Type Department Care Team (Late st Contact Info) Description 02/19/2025 9:00 AM EDT TH Visit (TeleHealth) [place] [address] Wyatt Higgins MD [facility] [place] [address] documented as of this encounter Visit Diagnoses Not on filedocumented in this encounter Care Teams Resistance Welding Machine Operator Relationship Specialty Start Date End Date Ruth Munoz APRN [address] [place] [address] PCP - General Family Medicine 02/05/19 documented as of this encounter
--- OUTSIDE RECORDS SUMMARY | 2024-05-15 11:06 | XMS_ITS | Encounter Summary ---
Author Organization [facility] [place] [address] Care Team Providers Care Lab Intern Name Role Phone MunozRuth jerome Lilibeth JUAREZ Primary Care Provider + Encounter Details Date Type Department Care Team (Late st Contact Info) Description 02/20/2023 2:00 PM EDT [place] [address] Wyatt Higgins MD [facility] [place] [address] Hereditary sensorimotor neuropathy Social History Tobacco Use Types Packs/Day Years [...] Progress Notes * Wyatt Higgins MD - 02/20/2023 2:00 PM EDT 57 yo female here in f/u for her peripheral neuropathy.??For the last year she has had some left ear pain which was worked up at [facility]. No diagnosis ??I was unable to find any information on care everywhere. ??In October of this year she started to have decreased urine flow and she went to see a urologist at [facility]. Harder time urinating and defecating. ??Apparently there is some urinary hesitancy andthe urologist told her to urinate on a scheduled basis every 4 hours. ??More recently she has had some problems with bowel movements but denies any significant constipation. ??She has problems pushing. She is not constipated. ?? HGBA1C was 7.5 which is relatively stable. ?? Her present weight is 166 lbs from 177lbs when I saw her in May. ??She has a history of bariatric surgery and has weighed as much as 250 pounds. ??She has had diabetes since the age of 16 and usesinsulin. ??She walks with a walker. ?? She wants to follow-up with gastroenterology here for a colonoscopy as her father of colon cancer and she has a history of polyps. ??She claims to be unable to use the usual, conventional means to clean her bowel. ??Hence there are problems with getting it scheduled. ?? Neuro??Exam: MS: ?Awake, alert, oriented to person, place, year, month ?3/3 Immediate, 3/3 Delayed recall ?Able to state months of year backwards, mimic interlocking hand gestures ?No dysarthria, language fluent, cooperative with neuro exam CN: ?Pupils 4mm ERRL, no RAPD ?EOMI, visual vivas full??to confrontation, without simultagnosia ?Facial sensation intact??to light touch, temperature ?No facial asymmetry ?Hearing intact to voice ?Palate elevates symmetrically, tongue protrudes midline ?SCM and trap strength intact Motor: ??Atrophy noted in foot muscles. High arched foot. ?UE: ?5/5 R, 5/5 L ?Arm abduction at shoulder ?5/5 R, 5/5 L ?Elbow extension, elbow flexion ?5/5 R, 5/5 L ?Wrist adduction, abduction, flexion, and extension ?5/5 R, 5/5 L ?Finger abduction, flexion, and extension ?4/5 R, 4/5 L ?Thumb abduction 4/5 weakness in the intrinsic hand muscles bilaterally ?LE: ?5/5 R, 5/5 L ?Hip flexion ?5/5 R, 5/5 L ?Hip adduction ?5/5 R, 5/5 L ?Knee flexion and extension ?1/5 R, 0/5 L ?Foot dorsiflexion ?4/5 R, 3/5 L ?Foot plantarflexion ?1/5 R, 1/5 L ?Foot eversion ?3/5 R, 2/5 L ??Foot inversion Sensory: Moderately reduced??light touch??and??temperature??in a glove distribution in her bilateral arms Significantly reduced light touch, temperature, and vibration in LE BL, from toes to proximal to her knees Proprioception impaired in BL great toes Reflexes: ?DTRs ?Trace??R, Trace??L ??Biceps ?Absent?? R, Absent??L ??Brachioradialis ?Absent?? R, Absent??L ??Triceps ?trace??R , trace??L ??Patellar ?Absent?? R, Absent??L ??Achilles tendon ?Toes - ??Both mute? Coordination: ?Finger to nose intact??with no dysmetria ?Rapid alternating movements??&??finger tapping smooth and symmetric ?No tremor at rest or with motion Gait:??Romberg +. Foot drop appreciated bilaterally when she walks ?? Assessment: I believe she could have some degree of autonomic neuropathy from her diabetes. 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 ??Her prior spinal fluid was normal. ??Genetic testing showed a variant of unclear significance in regards to her neuropathy. ??She did have a sister who in her late 30s with possible neuropathy. ??Her sister was also diabetic. ?? I will try to follow-up with Martha in about 12 months time and she is to contact me in the interim with any questions or issues. Autonomic testing might be reasonable although unlikely to change her management. documented in this encounter Plan of Treatment Upcoming Encounters Date Type Department Care Team (Late st Contact Info) Description 02/19/2025 9:00 AM EDT TH Visit (TeleHealth) [place] [address] Wyatt Higgins MD [facility] [place] [address] documented as of this encounter Visit Diagnoses Diagnosis Hereditary sensorimotor neuropathy documented in this encounter Care Teams Lab Intern Relationship Specialty Start Date End Date Ruth Munoz APRN [address] [place] [address] PCP - General Family Medicine 02/05/19 documented as of this encounter
--- OUTSIDE RECORDS SUMMARY | 2024-05-15 11:06 | XMS_ITS | Encounter Summary ---
[place] [address] Care Team Providers Care Saw Runner Name Role Phone Ruth Munoz LARRY Primary Care Provider + Reason for Visit * Reason Comments Medication Management Encounter Details Date Type Department Care Team (Late st Contact Info) Description 09/26/2023 Specialty [place] [address] Sukhdev Ga RPH Social History Tobacco Use [...] Progress Notes * Sukhdev Ga RPH - 09/26/2023 3:44 PM EST Clinical Management Plan: Refill Specialty [...] Known Allergies Medication Reconciliation Discrepancies (compared to [facility] med list) No Specialty Pharmacy Refill Questionnaire More data exists 09/26/2023 Refill Questionnaire What is the name of the specialty medication you are refilling? Cosentyx Are you taking any new medications? No Any new medical condition? No Any new allergies? No Any new side effects that are bothersome? No Adherence: Any missed doses? No Patient understands no changes to current drug regimen were made. Sukhdev Ga RPH 09/26/23 3:45 PM documented in this encounter Plan of Treatment Upcoming Encounters Date Type Department Care Team (Late st Contact Info) Description 02/19/2025 9:00 AM EDT TH Visit (TeleHealth) [place] [address] Wyatt Higgins MD [facility] [place] [address] documented as of this encounter Visit Diagnoses Not on filedocumented in this encounter Care Teams Saw Runner Relationship Specialty Start Date End Date Ruth Munoz APRN [address] [place] [address] PCP - General Family Medicine 02/05/19 documented as of this encounter
--- OUTSIDE RECORDS SUMMARY | 2024-05-15 11:06 | XMS_ITS | Encounter Summary ---
Author Organization [facility] [place] [address] Care Team Providers Care Outside B2B Sales Name Role Phone Ruth Munoz Lilibeth JUAREZ Primary Care Provider + Reason for Visit * Reason Comments Psoriasis Encounter Details Date Type Department Care Team (Late st Contact Info) Description 03/21/2023 1:45 PM EDT Office Visit Dermatology at [address] [place] [phone] Galdino Gilliland MD [address] [facility] [place]ER[facility] [place], [place] [id number] Psoriasis Social History Tobacco Use Types Packs/Day [...] Progress Notes * Galdino Gilliland MD - 03/21/2023 1:45 PM EDT Problem: 1. ??On Cosentyx since May 2020 2.?Psoriasis??on Humira from January to April 2020 with decreasing benefit 3.?History of significant psoriasis??in her?son and granddaughter 4. ??Status post 2 months of methotrexate??without significant improvement ?? Martha follows up for a repeat check on her psoriasis. Is has been almost a year since I saw her last. She remains on Cosentyx. We had discussed switching to Enbrel because of perceived decreased efficacy, but she opted to stick with the Cosentyx after. Physical examination reveals a pleasant 57-year-old woman who has good clearance of her psoriasis. She has no active disease today on examination of the arms chest back and scalp. Assessment and plan: Psoriasis, well controlled on Cosentyx 1. Continue Cosentyx injecting 300 mg subcutaneously every 2 weeks. Dispense 1 month supply with 11refills 2. Return to clinic in another year for repeat check Solar lentigo's facial 1. Patient would like to try hydroquinone 4% cream apply twice daily to face for 6 weeks, then discontinue. Dispense 30 g with 2 refills. May repeat course if needed. 2. Discussed the [employer] website to better pricing for this [id number] expense. CC: Ruth Munoz APRN documented in this encounter Plan of Treatment Upcoming Encounters Date Type Department Care Team (Late st Contact Info) Description 02/19/2025 9:00 AM EDT TH Visit (TeleHealth) [place] [address] Wyatt Higgins MD [facility] [place] [address] documented as of this encounter Visit Diagnoses Diagnosis Psoriasis Other psoriasis documented in this encounter Care Teams Outside B2B Sales Relationship Specialty Start Date End Date Ruth Munoz APRN [address] [place] [address] PCP - General Family Medicine 02/05/19 documented as of this encounter
--- OUTSIDE RECORDS SUMMARY | 2024-05-15 11:06 | XMS_ITS | Encounter Summary ---
Author Organization [facility] [place] [address] Care Team Providers Care Dimension Stone Quarry Supervisor Name Role Phone Ruth Munoz Lilibeth JUAREZ Primary Care Provider + Reason for Visit * Reason Onset Date Comments Medication Refill 02/13/2023 Encounter Details Date Type Department Care Team (Late st Contact Info) Description 02/13/2023 [place] [address] Shari Keller communications technologist Refill Social History Tobacco Use Types Packs/Day [...] AM EDT TH Visit (TeleHealth) [place] [address] Wyatt Higgins MD [facility] [place] [address] documented as of this encounter Results * (ABNORMAL) Hemoglobin A1c (02/20/2023 1:02 PM EDT) Hemoglobin A1C 6.4(H) 4.3 - 5.6 % [facility] Comment: Reference Range: 4.3 - [...] 1, S67-74 Est Avg Gluc 137 mg/dL [facility] Comment: eAG equivalents for HbA1c [...] into estimated average glucose values. ??Diabetes Care 2008:31(8):0483-6133. Blood 02/20/2023 1:02 PM EDT 02/20/2023 1:10 PM EDT Narrative Resulting Agency Comment Spec In Lab Judith Reinoso MD CHEMISTRY ORDERAB LES [facility] [place] [address] documented in this encounter Visit Diagnoses Diagnosis Type 2 diabetes, controlled, with neuropathy Type II or unspecified type diabetes mellitus with neurological manifestations, not stated as uncontrolled History of gastric bypass Bariatric surgery status Peripheral autonomic neuropathy due to diabetes mellitus Type II or unspecified type diabetes mellitus with neurological manifestations, not stated as uncontrolled documented in this encounter Care Teams Dimension Stone Quarry Supervisor Relationship Specialty Start Date End Date Ruth Munoz, FAX MACHINE REPAIRER [address] [place] [address] PCP - General Family Medicine 02/05/19 documented as of this encounter
--- OUTSIDE RECORDS SUMMARY | 2024-05-15 11:06 | XMS_ITS | Encounter Summary ---
Author Organization [facility] [place] [address] Care Team Providers Care Deli Clerk Name Role Phone MunozRuth jerome Lilibeth JUAREZ Primary Care Provider + Encounter Details Date Type Department Care Team (Late st Contact Info) Description 03/21/2023 Refill Dermatology at [address] [place] [address] Benita Salazar, CHAIN MENDER Social History Tobacco Use Types Packs/Day Years [...] AM EDT TH Visit (TeleHealth) [place] [address] Wyatt Higgins MD [facility] [place] [address] documented as of this encounter Visit Diagnoses Not on filedocumented in this encounter Care Teams Deli Clerk Relationship Specialty Start Date End Date Ruth Munzo, APPLICATION SOFTWARE ENGINEER [address] [place] [address] PCP - General Family Medicine 02/05/19 documented as of this encounter
--- OUTSIDE RECORDS SUMMARY | 2024-05-15 11:06 | XMS_ITS | Encounter Summary ---
[place] [address] Care Team Providers Care Production Specialist Name Role Phone MunozRuth jerome Lilibeth JUAREZ Primary Care Provider + Reason for Visit * Reason Comments Medication Refill Encounter Details Date Type Department Care Team (Late st Contact Info) Description 07/29/2022 Refill Dermatology at [address] [place] [address] Galdino Gilliland MD [address] [facility] [place] [address] Social History Tobacco Use Types Packs/Day Years [...] AM EDT TH Visit (TeleHealth) [place] [address] Wyatt Higgins MD [facility] [place] [address] documented as of this encounter Visit Diagnoses Not on filedocumented in this encounter Care Teams Production Specialist Relationship Specialty Start Date End Date Ruth Munoz APRN [address] [place] [address] PCP - General Family Medicine 02/05/19 documented as of this encounter
--- OUTSIDE RECORDS SUMMARY | 2024-05-15 11:06 | XMS_ITS | Encounter Summary ---
[place] [address] Care Team Providers Care Remote Recruiter Name Role Phone Ruth Munoz LARRY Primary Care Provider + Reason for Visit * Reason Comments Medication Management Encounter Details Date Type Department Care Team (Late st Contact Info) Description 07/03/2023 Specialty [place] [address] Sukhdev Ga RPH Social History Tobacco Use [...] of this encounter Progress Notes * Sukhdev aG RPH - 07/03/2023 12:09 PM EDT Clinical Management Plan: Refill Specialty Pharmacy Consultation; Sukhdev Ga RPH Comprehensive Medication Management (CMM) Martha Benoit Ms. Martha A Yc is a 57 y.o. (1965) female who [...] Known Allergies Medication Reconciliation Discrepancies (compared to [facility] med list) No Specialty Pharmacy Refill Questionnaire More data exists 07/03/2023 Refill Questionnaire What is the name of the specialty medication you are refilling? Cosentyx Are you taking any new medications? No Any new medical condition? No Any new allergies? No Any new side effects that are bothersome? No Adherence: Any missed doses? No Patient understands no changes to current drug regimen were made. Sukhdev Ga RPH 07/03/23 12:11 PM documented in this encounter Plan of Treatment Upcoming Encounters Date Type Department Care Team (Late st Contact Info) Description 02/19/2025 9:00 AM EDT TH Visit (TeleHealth) [place] [address] Wyatt Higgins MD [facility] [place] [address] documented as of this encounter Visit Diagnoses Not on filedocumented in this encounter Care Teams Remote Recruiter Relationship Specialty Start Date End Date Ruth Munoz APRN [address] [place] [address] PCP - General Family Medicine 02/05/19 documented as of this encounter
--- OUTSIDE RECORDS SUMMARY | 2024-05-15 11:06 | XMS_ITS | Encounter Summary ---
Author Organization [facility] [place] [address] Care Team Providers Care Appellate Court Judge Name Role Phone MunozRuth jerome Lilibeth JUAREZ Primary Care Provider + Reason for Visit * Reason Comments Medication Refill Encounter Details Date Type Department Care Team (Late st Contact Info) Description 08/23/2022 Ref[place] [phone] Judith Reinoso MD [facility] [place] [address] Social History Tobacco Use Types Packs/Day Years [...] AM EDT TH Visit (TeleHealth) [place] [address] Wyatt Higgins MD [facility] [place] [address] documented as of this encounter Visit Diagnoses Not on filedocumented in this encounter Care Teams Appellate Court Judge Relationship Specialty Start Date End Date Ruth Munoz, LARRY [address] [place] [address] PCP - General Family Medicine 02/05/19 documented as of this encounter
--- OUTSIDE RECORDS SUMMARY | 2024-05-15 11:06 | XMS_ITS | Encounter Summary ---
Author Organization [facility] [place] [address] Care Team Providers Care Sloop Captain Name Role Phone MunozRuth jerome Lilibeth JUAREZ Primary Care Provider + Reason for Visit * Reason Comments Medication Refill Encounter Details Date Type Department Care Team (Late st Contact Info) Description 03/10/2024 Ref[place] [phone] Judith Reinoso MD [facility] [place] [address] Social History Tobacco Use Types Packs/Day Years [...] AM EDT TH Visit (TeleHealth) [place] [address] Wyatt Higgins MD [facility] [place] [address] documented as of this encounter Visit Diagnoses Not on filedocumented in this encounter Care Teams Sloop Captain Relationship Specialty Start Date End Date Ruth Munoz, LARRY [address] [place] [address] PCP - General Family Medicine 02/05/19 documented as of this encounter
--- OUTSIDE RECORDS SUMMARY | 2024-05-15 11:06 | XMS_ITS | Encounter Summary ---
[place] [address] Care Team Providers Care Grocery Supervisor Name Role Phone Ruth Munoz LARRY Primary Care Provider + Reason for Visit * Reason Comments Specialty Refill Management Cosentyx Sen soready ([address]) Encounter Details Date Type Department Care Team (Late st Contact Info) Description 10/18/2023 Specialty [place] [address] Emerson Perez, SUPERINTENDENT [employer] Social History Tobacco Use Types Packs/Day [...] as of this encounter Progress Notes * Emerson Perez - 10/18/2023 3:24 PM EST Clinical Management Plan: Refill Specialty Pharmacy Consultation; Emerson Perez Comprehensive Medication Management (CMM) Martha Benoit MsEdvin Martha Moon Benoit is a 57 y.o. (1965) female who was contacted in regard to a specialty medication refill reminder. patient requested a refill of Cosentyx. A [...] Known Allergies Medication Reconciliation Discrepancies (compared to [facility] med list) No Specialty Pharmacy Refill Questionnaire More data exists 10/18/2023 Refill Questionnaire What is the name of the specialty medication you are refilling? Cosentyx Sensoready (300 M [address]) Are you taking any new medications? No Any new medical condition? No Any new allergies? No Any new side effects that are bothersome? No What date will you need this fill by? 10/28/2023 Adherence: Any missed doses? No Patient understands no changes to current drug regimen were made. Emerson Perez 10/18/23 3:28 PM documented in this encounter Plan of Treatment Upcoming Encounters Date Type Department Care Team (Late st Contact Info) Description 02/19/2025 9:00 AM EDT TH Visit (TeleHealth) [place] [address] Wyatt Higgins MD [facility] [place] [address] documented as of this encounter Visit Diagnoses Not on filedocumented in this encounter Care Teams Grocery Supervisor Relationship Specialty Start Date End Date Ruth Munoz APRN [address] [place] [address] PCP - General Family Medicine 02/05/19 documented as of this encounter
--- OUTSIDE RECORDS SUMMARY | 2024-05-15 11:06 | XMS_ITS | Encounter Summary ---
[place] [address] Care Team Providers Care Dinker Name Role Phone Ruth Munoz LARRY Primary Care Provider + Encounter Details Date Type Department Care Team (Late st Contact Info) Description 02/06/2024 Specialty [place] [address] Gertrudis Siddiqi, [facility] Social History Tobacco Use Types Packs/Day Years [...] encounter Progress Notes * Gertrudis Siddiqi - 02/06/2024 11:21 AM EDT Clinical Management Plan: Refill Specialty Pharmacy Consultation; Gertrudis Siddiqi Comprehensive Medication Management (CMM) Martha Benoit Ms. Martha Benoit is a 58 y.o. (1965) female who was contacted in regard to a specialty medication refill reminder. Martha Benoit requested a refill of Cosentyx. A review [...] Known Allergies Medication Reconciliation Discrepancies (compared to [facility] med list) No Specialty Pharmacy Refill Questionnaire More data exists 02/06/2024 Refill Questionnaire What is the name of the specialty medication you are refilling? Cosentyx Sensoready Pen 150mg/ml SOAJ Are you taking any new medications? No Any new medical condition? No Any new allergies? No Any new side effects that are bothersome? No What date will you need this fill by? 02/10/2024 Adherence: Any missed doses? No Patient understands no changes to current drug regimen were made. Gertrudis Siddiqi 02/06/24 11:22 AM documented in this encounter Plan of Treatment Upcoming Encounters Date Type Department Care Team (Late st Contact Info) Description 02/19/2025 9:00 AM EDT TH Visit (TeleHealth) [place] [address] Wyatt Higgins MD [facility] [place] [address] documented as of this encounter Visit Diagnoses Diagnosis Psoriasis Other psoriasis documented in this encounter Care Teams Dinker Relationship Specialty Start Date End Date Ruth Munoz APRN [address] [place] [address] PCP - General Family Medicine 02/05/19 documented as of this encounter
--- OUTSIDE RECORDS SUMMARY | 2024-05-15 11:06 | XMS_ITS | Encounter Summary ---
[place] [address] Care Team Providers Care Human Resources Talent Manager Name Role Phone Ruth Munoz LARRY Primary Care Provider + Encounter Details Date Type Department Care Team (Late st Contact Info) Description 02/07/2023 Refill Dermatology at [address] [place] [id number] Galdino Gilliland MD [address] [facility] [place] [address] Social History Tobacco Use Types Packs/Day Years [...] AM EDT TH Visit (TeleHealth) [place] [phone] Wyatt Higgins MD [facility] [address] documented as of this encounter Visit Diagnoses Not on filedocumented in this encounter Care Teams Human Resources Talent Manager Relationship Specialty Start Date End Date Ruth Munoz APRN [address] [place] [address] PCP - General Family Medicine 02/05/19 documented as of this encounter
--- OUTSIDE RECORDS SUMMARY | 2024-05-15 11:06 | XMS_ITS | Encounter Summary ---
[place] [address] Care Team Providers Care Flow Specialist Name Role Phone Ruth Munoz LARRY Primary Care Provider + Reason for Visit * Reason Comments Specialty Refill Management Encounter Details Date Type Department Care Team (Late st Contact Info) Description 04/17/2023 Specialty [place] [address] Jessica Clayton CPHT Social History Tobacco Use Types Packs/Day Years [...] as of this encounter Progress Notes * Jessica Clayton CPHT - 04/17/2023 1:50 PM EDT Clinical Management Plan: Refill Specialty Pharmacy Consultation; Jessica Clayton CPHT Comprehensive Medication Management (CMM) Martha Benoit MsEdvin Benoit is a 57 y.o. [...] Known Allergies Medication Reconciliation Discrepancies (compared to [facility] med list) No Specialty Pharmacy Refill Questionnaire More data exists 04/17/2023 Refill Questionnaire What is the name of the specialty medication you are refilling? Cosentyx Are you taking any new medications? No Any new medical condition? No Any new allergies? No Any new side effects that are bothersome? No What date will you need this fill by? 04/22/2023 Adherence: Any missed doses? No Patient understands no changes to current drug regimen were made. Jessica Clayton CPHT 04/17/23 1:51 PM documented in this encounter Plan of Treatment Upcoming Encounters Date Type Department Care Team (Late st Contact Info) Description 02/19/2025 9:00 AM EDT TH Visit (TeleHealth) [place] [address] Wyatt Higgins MD [facility] [place] [address] documented as of this encounter Visit Diagnoses Not on filedocumented in this encounter Care Teams Flow Specialist Relationship Specialty Start Date End Date Ruth Munoz APRN [address] [place] [address] PCP - General Family Medicine 02/05/19 documented as of this encounter
--- OUTSIDE RECORDS SUMMARY | 2024-05-15 11:06 | XMS_ITS | Encounter Summary ---
[place] [address] Care Team Providers Care Mophead Sewer Name Role Phone Ruth Munoz LARRY Primary Care Provider + Reason for Visit * Reason Comments Medication Management Specialty Refill Management Encounter Details Date Type Department Care Team (Late st Contact Info) Description 09/02/2022 Specialty [place] [address] Rafal Frye RPH Social History Tobacco Use [...] Progress Notes * Rafal Frye RPH - 09/02/2022 2:00 PM EST Clinical Management Plan: Refill Specialty Pharmacy Consultation; Rafal Frye RPH Comprehensive Medication Management (CMM) Martha Benoit Ms. Martha A Cy is a 56 y.o. (1965) female who [...] Known Allergies Medication Reconciliation Discrepancies (compared to [facility] med list) No Specialty Pharmacy Refill Questionnaire Refill Questionnaire 09/02/2022 What is the name of the specialty medication you are refilling? cosentyx Are you taking any new medications? No Any new medical condition? No Any new allergies? No Any new side effects that are bothersome? No What date will you need this fill by? 09/09/2022 Adherence: Any missed doses? No Patient understands no changes to current drug regimen were made. Rafal Frye RPH 09/02/22 2:01 PM documented in this encounter Plan of Treatment Upcoming Encounters Date Type Department Care Team (Late st Contact Info) Description 02/19/2025 9:00 AM EDT TH Visit (TeleHealth) [place] [address] Wyatt Higgins MD [facility] [place] [address] documented as of this encounter Visit Diagnoses Not on filedocumented in this encounter Care Teams Mophead Sewer Relationship Specialty Start Date End Date Ruth Munoz APRN [address] [place] [address] PCP - General Family Medicine 02/05/19 documented as of this encounter
--- OUTSIDE RECORDS SUMMARY | 2024-05-15 11:06 | XMS_ITS | Encounter Summary ---
[place] [address] Care Team Providers Care Tourist Camp Attendant Name Role Phone Ruth Munoz LARRY Primary Care Provider + Encounter Details Date Type Department Care Team (Late st Contact Info) Description 12/21/2022 Specialty [place] [address] Louis Baeza, [facility] Social History Tobacco Use Types Packs/Day [...] encounter Progress Notes * Louis Baeza - 12/21/2022 10:45 AM EST Clinical Management Plan: Refill Specialty [...] Known Allergies Medication Reconciliation Discrepancies (compared to [facility] med list) No Specialty Pharmacy Refill Questionnaire Refill Questionnaire 12/21/2022 What is the name of the specialty medication you are refilling? Cosentyx Are you taking any new medications? No Any new medical condition? No Any new allergies? No Any new side effects that are bothersome? No What date will you need this fill by? 12/27/2022 Adherence: Any missed doses? No Patient understands no changes to current drug regimen were made. Louis Baeza 12/21/22 10:46 AM documented in this encounter Plan of Treatment Upcoming Encounters Date Type Department Care Team (Late st Contact Info) Description 02/19/2025 9:00 AM EDT TH Visit (TeleHealth) [place] [address] Wyatt Higgins MD [facility] [place] [address] documented as of this encounter Visit Diagnoses Not on filedocumented in this encounter Care Teams Tourist Camp Attendant Relationship Specialty Start Date End Date Ruth Munoz, LARRY [address] [place] [address] PCP - General Family Medicine 02/05/19 documented as of this encounter
--- OUTSIDE RECORDS SUMMARY | 2024-05-15 11:06 | XMS_ITS | Encounter Summary ---
Author Organization [facility] [place] [address] Care Team Providers Care Car Shakeout Operator Name Role Phone Ruth Munoz Lilibeth JUAREZ Primary Care Provider + Reason for Visit * Reason Onset Date Comments Medication Refill 07/26/2022 Encounter Details Date Type Department Care Team (Late st Contact Info) Description 07/26/2022 Telephone [place] [phone] Shari Keller communication analyst Refill Social History Tobacco Use Types Packs/Day [...] AM EDT TH Visit (TeleHealth) [place] [address] Wyatt Higgins MD [facility] [place] [address] documented as of this encounter Results * TSH (02/20/2023 1:02 PM EDT) TSH 1.80 0.27 - 4.20 mcIU/mL [facility] Comment: Reference Interval (mcIU/mL): Females: ??First Trimester: 0.23-3.88 ??Second Trimester: 0.22-3.90 ??Third Trimester: 0.44-4.66 Blood 02/20/2023 1:02 PM EDT 02/20/2023 1:10 PM EDT Narrative Resulting Agency Comment Spec In Lab Judith Reinoso MD CHEMISTRY ORDERAB LES [facility] [place] [address] documented in this encounter Visit Diagnoses Diagnosis Hypothyroidism, acquired Unspecified hypothyroidism documented in this encounter Care Teams Car Shakeout Operator Relationship Specialty Start Date End Date Ruth Munoz APRN [address] [place] [address] PCP - General Family Medicine 02/05/19 documented as of this encounter
--- OUTSIDE RECORDS SUMMARY | 2024-05-15 11:06 | XMS_ITS | Encounter Summary ---
Author Organization [facility] [place] [address] Care Team Providers Care Chemical Manager Name Role Phone Ruth Munoz APRN Primary Care Provider + Encounter Details Date Type Department Care Team (Latest Contact Info) Description 03/21/2023 Travel Social History Tobacco Use Types Packs/Day [...] AM EDT TH Visit (TeleHealth) [place] [address] Wyatt Higgins MD [facility] [place] [address] documented as of this encounter Visit Diagnoses Not on filedocumented in this encounter Care Teams Chemical Manager Relationship Specialty Start Date End Date Ruth Munoz, STEAM PRESS OPERATOR [address] [place] [address] PCP - General Family Medicine 02/05/19 documented as of this encounter
--- OUTSIDE RECORDS SUMMARY | 2024-05-15 11:06 | XMS_ITS | Encounter Summary ---
Author Organization [facility] [place] [address] Care Team Providers Care Tag Stringer Name Role Phone Ruth Munoz LARRY Primary Care Provider + Encounter Details Date Type Department Care Team (Late st Contact Info) Description 01/15/2024 Orders [place] [address] Madelin Caldwell RN Social History Tobacco Use [...] AM EDT TH Visit (TeleHealth) [place] [address] Wyatt Higgins MD [facility] [address] NEUROLOGY DEPT. [place], [place] [address] documented as of this encounter Visit Diagnoses Not on filedocumented in this encounter Care Teams Tag Stringer Relationship Specialty Start Date End Date Ruth Munoz, LARRY [address] [place] [address] PCP - General Family Medicine 02/05/19 documented as of this encounter
--- OUTSIDE RECORDS SUMMARY | 2024-05-15 11:06 | XMS_ITS | Encounter Summary ---
[place] [address] Care Team Providers Care Door Manager Name Role Phone MunozRuth jerome Lilibeth JUAREZ Primary Care Provider + Encounter Details Date Type Department Care Team (Late st Contact Info) Description 07/25/2022 Telephone [place] [phone] Shari Keller RN Social History Tobacco Use [...] Telephone Encounter - Shari Keller RN - 07/25/2022 10:45 AM EDT Pt called saying that she is experiencing symptoms of sweating, weight loss with out trying and so thinning of her hair. She is wondering if it has anything to do with her levo 25mcg. documented in this encounter Plan of Treatment Upcoming Encounters Date Type Department Care Team (Late st Contact Info) Description 02/19/2025 9:00 AM EDT TH Visit (TeleHealth) [place] [address] Wyatt Higgins MD [facility] [place] [address] documented as of this encounter Visit Diagnoses Not on filedocumented in this encounter Care Teams Door Manager Relationship Specialty Start Date End Date Ruth Munoz APRN [address] [place] [address] PCP - General Family Medicine 02/05/19 documented as of this encounter
--- OUTSIDE RECORDS SUMMARY | 2024-05-15 11:06 | XMS_ITS | Encounter Summary ---
[facility] [place] [address] Care Team Providers Care Dulser Name Role Phone Ruth Munoz Lilibeth JUAREZ Primary Care Provider + Encounter Details Date Type Department Care Team (Late st Contact Info) Description 12/05/2023 Telephone Dermatology at [address] [address] Lydia Funes RN Social History [...] Telephone Encounter - Lydia Funes RN - 12/05/2023 1:24 PM EST Patient called and requesting a refill on the Triamcinolone 0.1% cream. Patient stated that she has spots of psoriasis that come up and she uses the Triamcinolone cream asneeded. She stated that these areas also rotate. She is currently on Cosentyx. She was last seen on03/21/2023 and has a follow up appointment on 03/29/2024. Triamcinolone 0.1% cream last filled 07/29/2022. Per prescription on 07/29/2022 Triamcinolone 0.1% cream apply thin layer topically to break out areaof psoriasis twice daily as needed. Dispense 1 tub with refills 0. Patient would like the prescription to go to [facility] in [place]. Discussed with Dr. Gilliland and he will renew the Triamcinolone 0.1% cream however dispense 80 g tubewith no refills. Patient notified. She was upset that she could not get the tub of the Triamcinolone that she wanted. She stated that she did not want the 80 mg tube therefore does not want the Triamcinolone 0.1% cream now. documented in this encounter Plan of Treatment Upcoming Encounters Date Type Department Care Team (Late st Contact Info) Description 02/19/2025 9:00 AM EDT TH Visit (TeleHealth) [place] [address] Wyatt Higgins MD [facility] [place] [address] documented as of this encounter Visit Diagnoses Not on filedocumented in this encounter Care Teams Dulser Relationship Specialty Start Date End Date Ruth Munoz APRN [address] [place] [address] PCP - General Family Medicine 02/05/19 documented as of this encounter
--- OUTSIDE RECORDS SUMMARY | 2024-05-15 11:06 | XMS_ITS | Encounter Summary ---
Author Organization [facility] [place] [address] Care Team Providers Care Patent Drafter Name Role Phone MunozRuth jerome Lilibeth JUAREZ Primary Care Provider + Encounter Details Date Type Department Care Team (Late st Contact Info) Description 03/21/2023 Refill Dermatology at [address] [place] [phone] Benita Salazar, NIGHT AUDITOR Social History Tobacco Use Types Packs/Day Years [...] AM EDT TH Visit (TeleHealth) [place] [address] Wyatt Higgins MD [facility] [place] [address] documented as of this encounter Visit Diagnoses Not on filedocumented in this encounter Care Teams Patent Drafter Relationship Specialty Start Date End Date Ruth Munoz, RUBBER AND POUNDER [address] [place] [address] PCP - General Family Medicine 02/05/19 documented as of this encounter
--- OUTSIDE RECORDS SUMMARY | 2024-05-15 11:07 | XMS_ITS | Encounter Summary ---
Author Organization [facility] Carlos [facility] [place] [address] Care Team Providers Care Securities Research Analyst Name Role Phone MunozRuth jerome Lilibeth JUAREZ Primary Care Provider + Encounter Details Date Type Department Care Team (Late st Contact Info) Description 04/05/2022 Orders [place] [phone] Christiana Jewell SENIOR LABEL SPECIALIST [facility] [place] [address] Status post bariatric surgery; Disorder of iron metabolism Social History Tobacco Use Types Packs/Day Years [...] AM EDT TH Visit (TeleHealth) [place] [address] Wyatt Higgins MD [facility] [place] [address] Scheduled Orders Name Type Priority Associated Diagnoses Orde r Schedule Comprehensive metabolic panel (non-fasting) Lab Routine Status post bariatric surgery Disorder of iron metabolism Expected: 04/05/2022 (Approximate), Expires: 07/06/2022 Hemogram Lab Routine Status post bariatric surgery Disorder of iron metabolism Expected: 04/05/2022 (Approximate), Expires: 07/06/2022 Iron and TIBC Lab Routine Status post bariatric surgery Disorder of iron metabolism Expected: 04/05/2022 (Approximate), Expires: 07/06/2022 Vitamin B12 Lab Routine Status post bariatric surgery Disorder of iron metabolism Expected: 04/05/2022 (Approximate), Expires: 07/06/2022 Vitamin D, 25-Hydroxy Lab Routine Status post bariatric surgery Disorder of iron metabolism Expected: 04/05/2022 (Approximate), Expires: 07/06/2022 documented as of this encounter Results * (ABNORMAL) Vitamin B1, whole blood (06/07/2022 11:47 AM EDT) [facility] Vit B1 Lvl WB 250(H) 70 - 180 nmol/L [facility] Comment: ADDITIONAL INFORMATION This test was developed and its performance characteristics determined by [facility] in a manner consistent with CLIA requirements. This test has not been cleared or approved by the U.S. Food and Drug Administration. Test Performed by: [facility] - [address] [address] Director Export: Jose Sands M.D. Ph.D.; CLIA# [id number] Blood 06/07/2022 11:4 7 AM EDT 06/07/2022 4:34 PM EDT Narrative Resulting Agency Comment Spec In Lab Christiana Jewell APRN CHEMISTRY ORDERABL ES [facility] [place] [address] * PTH (06/07/2022 11:47 AM EDT) Pathologist [facility] PTH 58 15 - 65 pg/mL [facility] Blood 06/07/2022 11:4 7 AM EDT 06/07/2022 11:54 AM EDT Narrative Resulting Agency Comment Spec In Lab Christiana E Fanta SENIOR LABEL SPECIALIST CHEMISTRY ORDERABL ES Performing Organization Address [facility] de Phone Number [facility] [place] [address] * Folate, serum (06/07/2022 11:47 AM EDT) Pathologist [facility] Folate Lvl >20.0 4.8 - 24.2 ng/mL [facility] Blood 06/07/2022 11:4 7 AM EDT 06/07/2022 11:54 AM EDT Narrative Resulting Agency Comment Spec In Lab Christiana E [place] SENIOR LABEL SPECIALIST CHEMISTRY ORDERABL ES Performing Organization Address [facility] de Phone Number [facility] [place] [address] * Ferritin (06/07/2022 11:47 AM EDT) Pathologist [facility] Ferritin 82 30 - 400 ng/mL [facility] Comment: Pediatric reference ranges not verified at [facility], interpret with caution. Reference ranges for females greater than 50 years of age approach values for men, i.e., 30-400 ng/mL. Blood 06/07/2022 11:4 7 AM EDT 06/07/2022 11:54 AM EDT Narrative Resulting Agency Comment Spec In Lab Christiana E [place] SENIOR LABEL SPECIALIST CHEMISTRY ORDERABL ES Performing Organization Address [facility] Co de Phone Number [facility] [place] [address] documented in this encounter Visit Diagnoses Diagnosis Status post bariatric surgery Bariatric surgery status Disorder of iron metabolism Other disorders of iron metabolism documented in this encounter Care Teams Securities Research Analyst Relationship Specialty Start Date End Date Ruth Munoz, SENIOR LABEL SPECIALIST [address] [place] [address] PCP - General Family Medicine 02/05/19 documented as of this encounter
--- OUTSIDE RECORDS SUMMARY | 2024-05-15 11:07 | XMS_ITS | Encounter Summary ---
[place] [address] Care Team Providers Care Grails Web Application Developer Name Role Phone Ruth Munoz LARRY Primary Care Provider + Reason for Visit * Reason Comments Specialty Refill Management Encounter Details Date Type Department Care Team (Late st Contact Info) Description 02/15/2022 Specialty [place] [address] Sravanthi Cardoza RPH Social History Tobacco Use [...] Progress Notes * Sravanthi Cardoza RPH - 02/15/2022 1:42 PM EDT Clinical Management Plan: Refill Specialty Pharmacy Consultation; Sravanthi Cardoza RPH Comprehensive Medication Management (CMM) Martha Benoit Ms. Martha Moon Benoit is a 56 y.o. (1965) female [...] a change made to the Care Plan: no If yes, should the medication be held: No Assessment and Recommendations: Title Type of Medication Management: chronic disease management, targeted medication review Referred By: pharmacist Recipient: beneficiary Provider: plan sponsor [facility] Time Spent: 1-15 min Method of Contact: by telephone Cognitive Ability: good Cognitive Impairment Status Verified this Year: no Allergies and Drug intolerance: No Known Allergies Medication Reconciliation Discrepancies (compared to [facility] med list) -none Specialty Pharmacy Refill Questionnaire Refill Questionnaire 02/15/2022 What is the name of the specialty medication you are refilling? Cosentyx Are you taking any new medications? No Any new medical condition? No Any new allergies? No Any missed doses since your last fill? Yes Please explain - Any new side effects that are bothersome? No What date will you need this fill by? - Adherence: Specialty Med Adherence Patient Demonstrates Understanding of Importance of Adherence: Yes Educational Information or Adherence Tools Provided: Yes Patient Reported X Missed Doses in the Last Month: all Other reason for missed dose Data0: was not feeling good Other reason for gaps in therapy: was not feeling good Provider-Estimated Medication Adherence Level: 0-25% Adherence Tools Used: directed education Pt understands no changes to current drug regimen were made at the appointment and that [facility] is providing recommendations (summary located at top of note) for provider review and follow up. Sravanthi Cardoza RPH 02/15/22 1:44 PM documented in this encounter Plan of Treatment Upcoming Encounters Date Type Department Care Team (Late st Contact Info) Description 02/19/2025 9:00 AM EDT TH Visit (TeleHealth) [place] [address] Wyatt Higgins MD [facility] [place] [address] documented as of this encounter Visit Diagnoses Not on filedocumented in this encounter Care Teams Grails Web Application Developer Relationship Specialty Start Date End Date Ruth Munoz, SENIOR INTERACTIVE DEVELOPER [address] [place] [address] PCP - General Family Medicine 02/05/19 documented as of this encounter
--- OUTSIDE RECORDS SUMMARY | 2024-05-15 11:07 | XMS_ITS | Encounter Summary ---
Author Organization Formerly [facility] [place] [address] Care Team Providers Care Hardwood Floor Installer Name Role Phone MunozRuth jerome Lilibeth JUAREZ Primary Care Provider + Reason for Visit * Reason Comments Medication Refill Encounter Details Date Type Department Care Team (Late st Contact Info) Description 01/15/2022 [place] [phone] Judith Reinoso MD [facility] [place] [address] Social History Tobacco Use Types Packs/Day Years [...] AM EDT TH Visit (TeleHealth[place] [phone] Wyatt Higgins MD [facility] [place] [address] documented as of this encounter Visit Diagnoses Not on filedocumented in this encounter Care Teams Hardwood Floor Installer Relationship Specialty Start Date End Date Ruth Munoz, LARRY [address] [place] [address] PCP - General Family Medicine 02/05/19 documented as of this encounter
--- OUTSIDE RECORDS SUMMARY | 2024-05-15 11:07 | XMS_ITS | Encounter Summary ---
[place] [address] Care Team Providers Care Cut Lace Machine Operator Name Role Phone Ruth Munoz LARRY Primary Care Provider + Reason for Visit * Reason Comments Specialty Refill Management Encounter Details Date Type Department Care Team (Late st Contact Info) Description 06/22/2021 Specialty [place] [address] Sravanthi Cardoza RPH Social History Tobacco Use [...] Progress Notes * Sravanthi Cardoza RPH - 06/22/2021 11:48 AM EDT Clinical Management Plan: Refill Specialty Pharmacy Consultation; Sravanthi Cardoza RPH Comprehensive Medication Management (CMM) Martha Benoit Ms. Martha Benoit is a 55 y.o. (1965) female who was contacted in [...] No Specialty Pharmacy Refill Questionnaire Refill Questionnaire 06/22/2021 What is the name of the specialty medication you are refilling? Cosentyx Are you taking any new medications? No Any new medical condition? No Any new allergies? No Any new side effects that are bothersome? No What date will you need this fill by? 06/26/2021 Adherence: Any missed doses? No Patient understands no changes to current drug regimen were made.. Sravanthi Cardoza RPH 06/22/21 11:54 AM documented in this encounter Plan of Treatment Upcoming Encounters Date Type Department Care Team (Late st Contact Info) Description 02/19/2025 9:00 AM EDT TH Visit (TeleHealth) [place] [address] Wyatt Higgins MD [facility] [place] [address] documented as of this encounter Visit Diagnoses Not on filedocumented in this encounter Care Teams Cut Lace Machine Operator Relationship Specialty Start Date End Date Ruth Munoz APRN [address] [place] [address] PCP - General Family Medicine 02/05/19 documented as of this encounter
--- OUTSIDE RECORDS SUMMARY | 2024-05-15 11:07 | XMS_ITS | Encounter Summary ---
[place] [address] Care Team Providers Care Pathology Laboratory Technologist Name Role Phone AlexanderAidanantony Mcelroy APRN Primary Care Provider + Encounter Details Date Type Department Care Team (Latest Contact Info) Description 06/07/2022 11:15 AM EDT Laboratory Appointment Lab [address] [place] [phone] Hypothyroidism, acquired; Type 2 diabetes, controlled, with neuropathy; History of gastric bypass; Vitamin D deficiency; Status post bariatric surgery; Disorder of iron metabolism; Type 2 diabetes mellitus with diabetic neuropathy, unspecified whether intermediate insulin use Social History Tobacco Use Types Packs/Day Years [...] as of this encounter Progress Notes * Christiana Jewell APRN - 06/07/2022 11:15 AM EDT Elevated B1, letter sent on My DH documented in this encounter Plan of Treatment Upcoming Encounters Date Type Department Care Team (Late st Contact Info) Description 02/19/2025 9:00 AM EDT TH Visit (TeleHealth) [place] [address] Wyatt Higgins MD [facility] [place] [address] documented as of this encounter Procedures Procedure Name Priority Date/Time Associated Diagnosis Comments HC PARATHYROID HORMONE(PTH INTACT Routine 06/07/2022 11:47 AM EDT Status post bariatric surgery Disorder of iron metabolism HEMOGRAM Routine 06/07/2022 11:47 AM EDT Hypothyroidism, acquired Type 2 diabetes, controlled, with neuropathy History of gastric bypass Vitamin D deficiency DIFFERENTIAL, AUTOMATED Routine 06/07/2022 11:47 AM EDT Hypothyroidism, acquired Type 2 diabetes, controlled, with neuropathy History of gastric bypass Vitamin D deficiency HC PCH THIAMIN LVL(VITAMIN B1) WB-MCLAUGHLIN Routine 06/07/2022 11:47 AM EDT Status post bariatric surgery Disorder of iron metabolism HC VENIPUNCTURE Routine 06/07/2022 11:47 AM EDT Hypothyroidism, acquired Type 2 diabetes, controlled, with neuropathy History of gastric bypass Vitamin D deficiency HC VITAMIN D TOTAL-25 HYDROXY Routine 06/07/2022 11:47 AM EDT Hypothyroidism, acquired Type 2 diabetes, controlled, with neuropathy History of gastric bypass Vitamin D deficiency HC CBC,PLT & AUTO DIFF Routine 11:47 AM EDT Hypothyroidism, acquired Type 2 diabetes, controlled, with neuropathy History of gastric bypass Vitamin D deficiency HC THYROID STIMULATING HORMONE, SERUM Routine 06/07/2022 11:47 AM EDT Hypothyroidism, acquired Type 2 diabetes, controlled, with neuropathy History of gastric bypass Vitamin D deficiency HC HEMOGLOBIN A1C Routine 06/07/2022 11: 47 AM EDT Hypothyroidism, acquired Type 2 diabetes, controlled, with neuropathy History of gastric bypass Vitamin D deficiency HC FOLATE, SERUM Routine 06/07/2022 11:4 7 AM EDT Status post bariatric surgery Disorder of iron metabolism HC FERRITIN, SERUM Routine 06/07/2022 11 :47 AM EDT Status post bariatric surgery Disorder of iron metabolism HC VITAMIN B12 SERUM Routine 06/07/2022 11:47 AM EDT Hypothyroidism, acquired Type 2 diabetes, controlled, with neuropathy History of gastric bypass Vitamin D deficiency LIPID PANEL (REFLEX DIRECT LDL) Routine 06/07/2022 [...] History of gastric bypass Vitamin D deficiency documented in this encounter Results * (ABNORMAL) Differential, Automated (06/07/2022 11:47 AM EDT) Neutrophils % 43.8 % [facility] Neutr Abs (ANC) 3.85 1.70 - 6.10 x10(3)/mc L [facility] Lymphocytes % 47.8 % [facility] Lymphocytes Abs 4.2(H) 0.9 - 3.2 x10(3)/mc L [facility] Monocytes % 5.6 % [facility] Monocyte Abs 0.5 0.3 - 0.9 x10(3)/mc L [facility] Eosinophils % 1.7 % [facility] Eosinophils Abs 0.2 0.0 - 0.4 x10(3)/[facility] Basophils % 0.6 % [facility] Basophils Abs 0.0 0.0 - 0.1 x10(3)/[facility] Immature Gran % 0.50 % [facility] Comment: Immature granulocytes(IG's)percentage and absolute count will include metamyelocytes, myelocytes, and promyelocytes. Blood smears from CBCs yielding IG's will be scanned manually for concordance. If this scan disagrees with the automated IG or if promyelocytes are noted, a manual differential will be performed. Zahra Gran Abs 0.04 0.00 - 0.04 x10(3)/[facility] Blood 06/07/2022 11:4 7 AM EDT 06/07/2022 11:54 AM EDT Narrative Resulting Agency Comment Spec In Lab Judith Reinoso MD HEMATOLOGY ORDERA BLES [facility] [place] [address] * Hemogram (06/07/2022 11:47 AM EDT) WBC 8.8 4.0 - 9.5 x10(3)/[facility] RBC 5.05 4.00 - 5.21 x10(6)/[facility] Hemoglobin 14.5 11.7 - 15.5 g/dL [facility] Hematocrit 43.6 35.7 - 45.8 % [facility] MCV 86.3 82.6 - 94.4 fL [facility] MCH 28.7 27.1 - 32.0 pg [facility] MCHC 33.3 31.7 - 35.0 g/dL [facility] Platelets 247 145 - 357 x10(3)/[facility] RDWSD 41.6 37.0 - 46.0 fL [facility] RDWCV 13.3 11.5 - 14.1 % [facility] MPV 11.2 7.6 - 12.9 fL [facility] nRBC % Auto 0.0 % [facility] nRBC Abs Auto 0.000 0.000 - 0.000 x10(3)/mcL [facility] Blood 06/07/2022 11:4 7 AM EDT 06/07/2022 11:54 AM EDT Narrative Resulting Agency Comment Spec In Lab Judith Reinoso MD HEMATOLOGY ORDERA BLES Performing Organization Address City/[facility]/ZIP Co de Phone Number [facility] [place] [phone] * Ferritin (06/07/2022 11:47 AM EDT) Ferritin 82 30 - 400 ng/mL [facility] Comment: Pediatric reference ranges not verified at [facility], interpret with caution. Reference ranges for females greater than 50 years of age approach values for men, i.e., 30-400 ng/mL. Blood 06/07/2022 11:4 7 AM EDT 06/07/2022 11:54 AM EDT Narrative Resulting Agency Comment Spec In Lab Christiana E Prairie GENOMICS SCIENTIST CHEMISTRY ORDERABL ES Performing Organization Address City/[facility]/ZIP Co de Phone Number [facility] [place] [address] * Folate, serum (06/07/2022 11:47 AM EDT) Folate Lvl >20.0 4.8 - 24.2 ng/mL [facility] Blood 06/07/2022 11:4 7 AM EDT 06/07/2022 11:54 AM EDT Narrative Resulting Agency Comment Spec In Lab Christiana E Fanta GENOMICS SCIENTIST CHEMISTRY ORDERABL ES Performing Organization Address City/[facility]/ZIP Co de Phone Number [facility] [place] [address] * PTH (06/07/2022 11:47 AM EDT) PTH 58 15 - 65 pg/mL [facility] Blood 06/07/2022 11:4 7 AM EDT 06/07/2022 11:54 AM EDT Narrative Resulting Agency Comment Spec In Lab Christiana Jewell GENOMICS SCIENTIST CHEMISTRY ORDERABL ES Performing Organization Address [facility] de Phone Number [facility] [place] [address] * (ABNORMAL) Vitamin B1, whole blood (06/07/2022 11:47 AM EDT) Pathologist [facility] Vit B1 Lvl WB 250(H) 70 - 180 nmol/L [facility] Comment: ADDITIONAL INFORMATION This test was developed and its performance characteristics determined by [facility] in a manner consistent with CLIA requirements. This test has not been cleared or approved by the U.S. Food and Drug Administration. Test Performed by: [facility] [place] [address] [employer] Farm Worker: Jose Sands M.D. Ph.D.; CLIA# [id number] Blood 06/07/2022 11:4 7 AM EDT 06/07/2022 4:34 PM EDT Narrative Resulting Agency Comment Spec In Lab Christiana Jewell GENOMICS SCIENTIST CHEMISTRY ORDERABL ES Performing Organization Address [facility] Co de Phone Number [facility] [place] [address] * (ABNORMAL) Hemoglobin A1c (06/07/2022 11:47 AM EDT) Hemoglobin A1C 7.5(H) 4.3 - 5.6 % [facility] Comment: Reference Range: 4.3 - [...] 36: Suppl. 1, S67-74 Est Avg Gluc 169 mg/dL [facility] Comment: [...] into estimated average glucose values. ??Diabetes Care 2008:31(8):7109-8450. Blood 06/07/2022 11:4 7 AM EDT 06/07/2022 11:54 AM EDT Narrative Resulting Agency Comment Spec In Lab Judith Reinoso MD CHEMISTRY ORDERAB LES [facility] [place] [address] * TSH (06/07/2022 11:47 AM EDT) [facility] TSH 2.07 0.27 - 4.20 mcIU/mL [facility] Comment: Reference Interval (mcIU/mL): Females: ??First Trimester: 0.23-3.88 ??Second Trimester: 0.22-3.90 ??Third Trimester: 0.44-4.66 Blood 06/07/2022 11:4 7 AM EDT 06/07/2022 11:54 AM EDT Narrative Resulting Agency Comment Spec In Lab Judith Reinoso MD CHEMISTRY ORDERAB LES [facility] [place] [address] * (ABNORMAL) Comprehensive metabolic panel (non-fasting) (06/07/2022 11:47 AM EDT) [facility] Glucose Lvl 74 65 - 199 mg/dL [facility] Comment:Diabetes: >=200 mg/d L plus symptoms BUN 10 8 - 18 mg/dL [facility] Creatinine 0.40(L) 0.70 - 1.20 mg/dL [facility] Sodium 144 135 - 145 mmol/L [facility] Potassium 3.8 3.5 - 5.0 mmol/L [facility] Comment: Please note: ??Patients with WBC >100,000 may have falsely elevated Potassium levels. ??For accurate Potassium quantification in these patients send serum separator tube (gold top) for subsequent determinations. ??Contact the Clinical Chemistry Laboratory if there are any questions. Chloride 106 98 - 107 mmol/L [facility] CO2 26 22 - 31 mmol/L [facility] Anion Gap 12 5 - 15 mmol/L [facility] Calcium 9.4 8.5 - 10.5 mg/dL [facility] Total Protein 7.6 6.1 - 8.0 g/dL [facility] Albumin 4.6 3.2 - 5.2 g/dL [facility] AST 19 0 - 30 unit/L [facility] ALT 17 0 - 30 unit/L [facility] Alk Phos 94 35 - 105 unit/L [facility] Total Bilirubin 0.3 0.2 - 1.3 mg/dL [facility] Estimated GFR 115 >=60 mL/min/1. 73 m?? [facility] Comment: This patient's estimated GFR [...] Lab Judith Reinoso MD CHEMISTRY ORDERAB LES [facility] [place] [address] * Lipid Panel (Reflex Direct LDL) (06/07/2022 11:47 AM EDT) Chol, Total 207 mg/dL [facility] Comment: Lower Risk: <200 mg/dL Average Risk: 200-239 mg/dL Higher Risk: >yk=307 mg/dL Triglycerides 163 mg/dL [facility] Comment: Average Risk/Lower Risk: <150 mg/dL Borderline High Risk: 150-199 mg/dL High Risk: 200-499 mg/dL Very High Risk: >tq=038 mg/dL HDL 50 mg/dL [facility] Comment: Males: ?? Higher Risk: <40 mg/dL Females: ?? Higher Risk: <50 mg/dL LDL Cholesterol 124 mg/dL [facility] Comment: Lowest Risk: <100 mg/dL Lower Risk: 100-129 mg/dL Borderline High Risk: 130-159 mg/dL High Risk: 160-189 mg/dL Very High Risk: >yd=233 mg/dL Chol/HDL Ratio 4.1 ratio [facility] Lipid Interpretation See Note [facility] Comment: Lipid management should be guided by a patient? s ASCVD risk, goals and preferences. ACC/AHA Guidelines recommend high intensity statin if clinical ASCVD or LDL greater than or equal to 190 mg/dL. http://[employer].com/GLO-PFY-Xieheafky Adults aged 40-75 with LDL 70-189 mg/dL should have their 10 year ASCVD risk estimated with the ACC/AHA ASCVD risk retail account executive http://tools.acc.org/HPGPN-Zpxn-Vtqjqimoe/ Statin should be discussed if risk greater [...] Lab Judith Reinoso MD CHEMISTRY ORDERAB LES [facility] [place] [place] [address] * Vitamin D, 25-Hydroxy (06/07/2022 11:47 AM EDT) 25-OH Vit D Total 36 21 - 100 ng/mL [facility] 25-OH Vit D Interp Sufficient [facility] Blood 06/07/2022 11:4 7 AM EDT 06/07/2022 11:54 AM EDT Narrative Resulting Agency Comment Spec In Lab Judith Reinoso MD CHEMISTRY ORDERAB LES Performing Organization Address City/[facility]/ZIP Co de Phone Number [facility] [place] [address] * (ABNORMAL) Vitamin B12 (06/07/2022 11:47 AM EDT) Pathologist [facility] Vitamin B-12 >2,000(H) 232 - 1,245 pg/mL [facility] Blood 06/07/2022 11:4 7 AM EDT 06/07/2022 11:54 AM EDT Narrative Resulting Agency Comment Spec In Lab Judith Reinoso MD CHEMISTRY ORDERAB LES Performing Organization Address [facility]/ZIP Co de Phone Number [facility] [place] [address] * Iron and TIBC (06/07/2022 11:47 AM EDT) [facility] Iron 83 30 - 150 mcg/dL [facility] TIBC 305 250 - 450 mcg/dL [facility] Iron Saturation 27 20 - 50 % [facility] Blood 06/07/2022 11:4 7 AM EDT 06/07/2022 11:54 AM EDT Narrative Resulting Agency Comment Spec In Lab Judith Reinoso MD CHEMISTRY ORDERAB LES Performing Organization Address City/[facility]/ZIP Co de Phone Number [facility] [place] [address] * U Albumin/Cre Ratio (06/07/2022 11:32 AM EDT) [facility] Alb/Cr Ratio, Random 11 0 - 29 mcg/mg Cr [facility] Comment: Reference Ranges: <30 mcg/mg: [...] 362 U Albumin Conc, Random 5.2 mg/L [facility] U Creatinine 48 mg/dL [facility] Urine 06/07/2022 11:3 2 AM EDT 06/07/2022 11:43 AM EDT Narrative Resulting Agency Comment Spec In Lab Judith Reinoso MD URINE ORDERABLES [facility] [place] [address] documented in this encounter Visit Diagnoses Diagnosis Hypothyroidism, acquired Unspecified hypothyroidism Type 2 diabetes, controlled, with neuropathy Type II or unspecified type diabetes mellitus with neurological manifestations, not stated as uncontrolled History of gastric bypass Bariatric surgery status Vitamin D deficiency Unspecified vitamin D deficiency Status post bariatric surgery Bariatric surgery status Disorder of iron metabolism Other disorders of iron metabolism Type 2 diabetes mellitus with diabetic neuropathy, unspecified whether exterminator helper insulin use documented in this encounter Care Teams Pathology Laboratory Technologist Relationship Specialty Start Date End Date Ruth Munoz APRN [address] [place] [address] PCP - General Family Medicine 02/05/19 documented as of this encounter
--- OUTSIDE RECORDS SUMMARY | 2024-05-15 11:07 | XMS_ITS | Encounter Summary ---
[place] [address] Care Team Providers Care Material Worker Name Role Phone Ruth Munoz LARRY Primary Care Provider + Encounter Details Date Type Department Care Team (Late st Contact Info) Description 09/09/2021 Refill Dermatology at [address] [place] [phone] Galdino Gilliland MD [address] [facility] [place] [address] Social History Tobacco Use Types Packs/Day Years [...] AM EDT TH Visit (TeleHealth) [place] [phone] Wyatt Higgins MD [facility] [place] [address] documented as of this encounter Visit Diagnoses Not on filedocumented in this encounter Care Teams Material Worker Relationship Specialty Start Date End Date Ruth Munoz APRN [address] [place] [address] PCP - General Family Medicine 02/05/19 documented as of this encounter
--- OUTSIDE RECORDS SUMMARY | 2024-05-15 11:07 | XMS_ITS | Encounter Summary ---
Author Organization [facility] [address] Care Team Providers Care Hoist Worker Name Role Phone Ruth Munoz Lilibeth JUAREZ Primary Care Provider + Encounter Details Date Type Department Care Team (Late st Contact Info) Description 03/24/2022 Telephone Dermatology at [address] [phone] Lydia Funes RN Social History [...] Telephone Encounter - Lydia Funes RN - 03/24/2022 5:16 PM EDT Pt called the Halog solution patient requested due to patient needing to try 2 of other medicationsher insurance Co. Is requesting she try first. Discuss recommendations from Dr. Gilliland to the patient and she stated she will try the Augmented Betamethasone 0.05% lotion Dispense 60 mil with [address] Gilliland. Pt stated she understood. E-scribed the medication to [facility] [place] per patient's request. documented in this encounter Plan of Treatment Upcoming Encounters Date Type Department Care Team (Late st Contact Info) Description 02/19/2025 9:00 AM EDT TH Visit (TeleHealth) [place] [address] Wyatt Higgins MD [facility] [place] [address] documented as of this encounter Visit Diagnoses Not on filedocumented in this encounter Care Teams Hoist Worker Relationship Specialty Start Date End Date Ruth Munoz APRN [address] [place] [address] PCP - General Family Medicine 02/05/19 documented as of this encounter
--- OUTSIDE RECORDS SUMMARY | 2024-05-15 11:07 | XMS_ITS | Encounter Summary ---
Author Organization [facility] [place] [address] Care Team Providers Care Recreation Teacher Name Role Phone MunozRuth jerome Lilibeth JUAREZ Primary Care Provider + Encounter Details Date Type Department Care Team (Late st Contact Info) Description 05/31/2022 Telephone Dermatology at [address] [address] Benita Salazar LPN Social History [...] Telephone Encounter - Benita Salazar LPN - 05/31/2022 1:44 PM EDT Pt requesting refill for Banophen. Dr. Gilliland has not ordered this medication for patient. The medication is over the counter. Nurse called pharmacy. They advised Otil[facility] Stearns ordered the medication. Reviewed with Dr. Gilliland. Patient should contact Otilio Stearns for any refills needed. Advised patient medication can be purchased over the counter. She needs to contact Otilio Stearns for any refills needed. She voiced understanding. documented in this encounter Plan of Treatment Upcoming Encounters Date Type Department Care Team (Late st Contact Info) Description 02/19/2025 9:00 AM EDT TH Visit (TeleHealth) [place] [address] Wyatt Higgins MD [facility] [address] documented as of this encounter Visit Diagnoses Not on filedocumented in this encounter Care Teams Recreation Teacher Relationship Specialty Start Date End Date Ruth uMnoz, LRARY [address] [place] [address] PCP - General Family Medicine 02/05/19 documented as of this encounter
--- OUTSIDE RECORDS SUMMARY | 2024-05-15 11:07 | XMS_ITS | Encounter Summary ---
Author Organization [facility] [place] [address] Care Team Providers Care Powder Guard Name Role Phone MunozRuth jerome Lilibeth JUAREZ Primary Care Provider + Reason for Visit * Reason Comments Follow-up Encounter Details Date Type Department Care Team (Late st Contact Info) Description 06/07/2022 1:00 PM EDT Office [place] [address] Judith Reinoso MD [facility] [place] [address] Type 2 diabetes, controlled, with neuropathy; Hypothyroidism, acquired; Vitamin D deficiency; History of gastric bypass; Dyslipidemia Social History [...] Sign Reading Time Taken Comments Blood Pressure 127/61 06/07/2022 12:46 PM EDT Pulse 87 06/07/2022 12:46 PM EDT Temperature - - Respiratory Rate - - Oxygen Saturation 96% 06/07/2022 12:46 PM EDT Inhaled Oxygen Concentration - - Weight 80.7 kg (178 lb) 06/07/2022 12:46 PM EDT Height 157.5 cm (5' 2) 06/07/2022 12:46 PM EDT Body Mass Index 32.56 06/07/2022 12:46 PM EDT documented in this encounter Patient Instructions * Patient Instructions* Judith Reinoso MD - 06/07/2022 1:00 PM EDT Plan: 1. Medication: To continue levothyroxine 25 mcg daily on empty stomach at least 30 mins before breakfast. Target TSH 0.5-3.0 for her weight and fatigue. Adjustment of diabetes treatment regime: To continue 70/30 mix 10u 2-3x/day to keep BG down to 100-180 range more consistently which will help get rid of yeast infection. will allow her to taper the dose by 2u if needed.. To use Humalog pen sliding scale as needed if BG>180 while on 70/30 mix (based on 1u:20 BG ratio). To cont glipizideER 10 mg qAM &PM To continue invokana 300 mg qAM for her DM and weight control. To cont metformin 500 mg tid (could not tolerate a higher dose) To cont vitamin D 50,000 iu weekly and 2 of Valliant MVI with iron which contains iron (she [...] while on insulin 4. Lab: already checked today as above. To recheck lab every 3-6 months with PCP for her A1c, TSH at [facility] lab and will let her know the results during the interim. 5. RTC: Next visit in 12 months (for 7-y post gastric bypass) or earlier needed. Will check annual lab before next visit for HbA1c, CBC, CMP, lipids, TSH, 25vitamin D, B12, iron/TIBC and annual urinemicroalbumin/Cr. Judith Reinoso MD, PhD, FACE, FACP documented in this encounter Progress Notes * Judith Reinoso MD - 06/07/2022 1:00 PM EDT Endocrine Clinic Name: [facility] : 1965 Date: 06/07/2022 PCP: Ruth Munoz APRN Reason for visit: Follow-up Type 2 diabetes s/p bariatric surgery 6 yrs ago (Dr. Mai on 01/04/16) with wt loss of 60-75 bs since the surgery and BMI 29-32 range. Lab last year also showed new hypothyroid with TSH 4.31 so we started her on levothyroxine 25 mcg qd with normalized TSH 2.07 today and she lost 4 lbs down over the past year. HPI: Jo Jones is a 56 y.o. lady : Diabetes treatment regimen: 70/30 mix pen 10u in AM, 0-5u lunch, 5-10u for dinner 2-3x/day Novolog sliding scale p.r.n for correction of high BG>180 Metformin 500 mg 3x/day (1,500 mg/day) GlipizideER 10 mg bid Ivokana 300 mg qd FSBG: average 150 over the past 2 weeks, typically ranging between 100s- 200s mg/dl Most recent HA1c:7.5% today (06/07/22), 7.5% on 05/31/21, 7.8% on 07/02/20, 6.8% on 02/05/20, 7.3% on 07/11/19, 7.5% on 02/12/18, 6.8% on 08/10/17, 7.6% on 01/1717, 7.4% on 07/05/16, 8.4% on 01/05/16, 11/03/15,8.5% on 11/03/15). Hypoglycemia during the interval time: None (rare in 60s-70s mid-day with late lunch but no low BG at night) Diet: low fat/low carb diet Exercise: walking Complications: no changes during the interim. Prevention: same as last visit recently. She kept her weight stable at 175-185 lbs range over the past year (182 lbs today) and used to weigh 240s-250s lbs before gastric bypass in 2015. She tried to cut back on carb so she can reduce insulin 3x/day to 2x/day for her 70/30 mix insulin. She cannot exercise due to foot drop bilaterally and using walker. A1c was trending up from 6.8% to 7.8% in the past but then came back down to 7.5% in May 2021 and again stable at 7.5%today. Her insurance covered for mix 70/30 insulin well. She is now ~6year post bariatric surgery and better from her foot drop/peripheral neuropathy. She wants to lose wt further as this will help reduce insulin resistance, especially when she could not tolerate metformin at a higher dose well (ok with 500 mg tid but not a full dose of 1,000 mg bid). She also had GI side effects with byetta or bydureon in the past. Her vitamin D was better, up from 18 to 28-29 and then 70 (nl 30-100) so she already reduced vit D 50,000 iu 2x/week to weekly since Jul 2017 with reasonable vitD at 44 in fall 2018 and is pending for lab results today. She has been taking Valliant multivitamin to 2 tab daily with normal iron levels as well. Denies any changes in vision, no CP, SOB, GI issues, leg swelling or foot ulcer but still having some thin scalp hairs and itchy skin (better with benadryl). Psoriasis is still in her extremities. She already had quite normal dilated eye exam except for mild cataract ou. She has annual eye check up next month. ROS: Please see HPI, all others negative Patient Active Problem List Diagnosis Code ??? History of kidney stones-bilateral Z87.442 ??? Chronic foot pain-s/p heel spur surgeries M79.673, G89.29 ? ? Diabetic retinopathy & neuropathy E11.319 ??? Preoperative Class III obesity BMI 43, S/P gastric bypass 3/14/16 E66.01 ??? Peripheral neuropathy-severe generalized G62.9 ??? Vitamin D deficiency E55.9 ??? 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 Peripheral autonomic neuropathy due to diabetes mellitus E11.43 ??? Unspecified hypothyroidism E03.9 ??? Seborrheic keratosis L82.1 ??? Gastroesophageal reflux K21.9 ??? Iron deficiency E61.1 ??? Memory loss R41.3 Current Outpatient Medications on File Prior to Visit Medication Sig Dispense Refill ??? ergocalciferoL, vitamin D2, (vitamin D2) 50,000 unit Capsule TAKE ONE CAPSULE BY MOUTH EVERY WEEK 12 capsule 3 ??? Invokana 300 mg Tablet TAKE ONE TABLET BY MOUTH EVERY DAY 90 tablet 3 ??? Flintstones Complete, iron, 18 mg iron Tablet, Chewable Take 1 tablet by mouth 2 times daily. ??? cyanocobalamin, Vitamin B-12, (Vitamin B-12) 1,000 mcg Tablet ??? metFORMIN (Glucophage) 500 mg Tablet Take 500 mg by mouth 3 times daily. ??? triamcinolone (Kenalog) 0.1 % Cream Apply topically twice daily as needed 453.6 g 0 ??? betamethasone, augmented, (DIPROLENE) 0.05 % Lotion Apply to affected areas on the scalp daily to twice a day. 60 mL 1 ??? insulin aspart protamine-insulin aspart 70/30 (novoLOG Mix 70-30 FlexPen) 100 unit/mL (70-30) Insulin Pen INJECT 20-30 UNITS UNDER THE SKIN THREE TIMES A DAY 60 mL 3 ??? secukinumab (Cosentyx Pen) 150 mg/mL Pen Injector Inject 300 mg subcutaneously every 28 days. 2mL 5 ??? fluconazole (Diflucan) 150 mg Tablet Take 1 tablet by mouth as needed (for yeast infection). Once per day 3 tablet 3 ??? cyclobenzaprine (Flexeril) 10 mg Tablet Take 10 mg by mouth nightly. ??? baclofen (LIORESAL) 20 mg Tablet Take 20 mg by mouth 4 times daily. ??? freestyle lite strips 1 each by Other route 4 times daily. DX: E11.40, E11.65 400 each 3 ??? glipiZIDE XL (Glucotrol XL) 10 mg Tablet Extended Rel 24 hr TAKE ONE TABLET BY MOUTH TWICE A DAY 180 tablet 3 ??? omeprazole (PRILOSEC) 20 mg Capsule, Delayed Release(E.C.) TAKE ONE CAPSULE BY MOUTH EVERY DAY 30 MINUTES PRIOR TO BREAKFAST ON AN EMPTY STOMACH 90 capsule 3 ??? nystatin (MYCOSTATIN) Powder 1 Application as needed. 2 ??? SF 5000 PLUS 1.1 % Cream BRUSH ON TEETH ONCE DAILY DIRECTED 11 ??? triamcinolone (KENALOG) 0.1 % Ointment APPLY TOPICALLY TO ARMS LEGS AND ABDOMEN TWO TIMES A DAYAS NEEDED 3 ??? oxyCODONE-acetaminophen (PERCOCET) 10-325 mg Tablet Take 1 tablet by mouth 6 times daily. ??? gabapentin (NEURONTIN) 300 mg Capsule Take 600 mg by mouth nightly. ??? lidocaine (LIDODERM) 5 %(700 mg/patch) Place 1 patch onto the skin every 12 hours as needed. ??? Banophen 25 mg Tablet TAKE ONE TABLET BY MOUTH THREE TIMES A DAY NEEDED FOR ITCHING ??? estradioL (ESTRACE) 0.01 % (0.1 mg/gram) Cream Insert 1 gram vaginally 3 times weekly for 3 weeks. Stop 3 days prior to colposcopy. Start:05/30/22 End:06/20/22 ??? fluticasone propionate (Flonase) 50 mcg/actuation [place], Suspension INSTILL ONE SPRAY INTO BOTHNOSTRIL TWICE DAILY ??? penicillin v potassium (VEETID) 500 mg Tablet Take 500 mg by mouth 2 times daily. ??? halcinonide (Halog) 0.1 % external solution Apply once to twice a day as needed to scalp. (Patient not taking: Reported on 06/07/2022) 60 mL 3 ??? UNABLE TO FIND Med Name: Valliant vitamins take one tablet by mouth twice daily No current facility-administered medications on file prior to visit. No Known Allergies Social History Socioeconomic History ??? Marital status: Spouse name: None ??? Number of children: None ??? Years of education: None ??? Highest education level: None Occupational History ??? Occupation: disabled Tobacco Use ??? Smoking status: Never Smoker ??? Smokeless tobacco: Never Used Vaping Use ??? Vaping Use: Never used Substance and Sexual Activity ??? Alcohol use: No ??? Drug use: No ??? Sexual activity: None Comment: deferred Other Topics Concern ??? None Social History Narrative ??? None Social Determinants of Health Financial Resource Strain: Not on file Food Insecurity: Not on file Transportation Needs: Not on file Physical Activity: Not on file Housing Stability: Not on file FAMILY HISTORY Family History Problem Relation Age of Onset ??? Diabetes Mother ??? Diabetes Father ??? Diabetes Other ??? High Cholesterol Other ??? Hypertension Other ??? Stroke Other ??? Obesity Other ??? Psoriasis Other ??? * Other congenital malformation in her son/kidney stone Physical exam BP 127/61 (BP Location (NBP): Right arm, Patient Position: Sitting, BP Cuff Sizes: Large Adult (32-43 cm)) Pulse 87 Ht 157.5 cm (5' 2) Wt 80.7 kg (178 lb) LMP 10/30/2015 (Approximate) EtR838% BMI 32.56 kg/m?? Appearance: Non-obese, pleasant, NAD, still having slight [...] 400 ng/mL 34 Heavy Metals Unknown ... Recent Results (from the past 24 hour(s)) U Albumin/Cre Ratio Result Value Ref Range Alb/Cr Ratio, Random 11 0 - 29 mcg/mg Cr U Albumin Conc, Random 5.2 mg/L U Creatinine 48 mg/dL Iron and TIBC Result Value Ref Range Iron 83 30 - 150 mcg/dL TIBC 305 250 - 450 mcg/dL Iron Saturation 27 20 - 50 % Vitamin B12 Result Value Ref Range Vitamin B-12 >2,000 (H) 232 - 1,245 pg/mL Lipid Panel (Reflex Direct LDL) Result Value Ref Range Chol, Total 207 mg/dL Triglycerides 163 mg/dL HDL 50 mg/dL LDL Cholesterol 124 mg/dL Chol/HDL Ratio 4.1 ratio Lipid Interpretation See Note Comprehensive metabolic panel (non-fasting) Result Value Ref Range Glucose Lvl 74 65 - 199 mg/dL BUN 10 8 - 18 mg/dL Creatinine 0.40 (L) 0.70 - 1.20 mg/dL Sodium 144 135 - 145 mmol/L Potassium 3.8 3.5 - 5.0 mmol/L Chloride 106 98 - 107 mmol/L CO2 26 22 - 31 mmol/L Anion Gap 12 5 - 15 mmol/L Calcium 9.4 8.5 - 10.5 mg/dL Total Protein 7.6 6.1 - 8.0 g/dL Albumin 4.6 3.2 - 5.2 g/dL AST 19 0 - 30 unit/L ALT 17 0 - 30 unit/L Alk Phos 94 35 - 105 unit/L Total Bilirubin 0.3 0.2 - 1.3 mg/dL Estimated GFR 115 >=60 mL/min/1.73 m?? TSH Result Value Ref Range TSH 2.07 0.27 - 4.20 mcIU/mL Hemoglobin A1c Result Value Ref Range Hemoglobin A1C 7.5 (H) 4.3 - 5.6 % Est Avg Gluc 169 mg/dL PTH Result Value Ref Range PTH 58 15 - 65 pg/mL Folate, serum Result Value Ref Range Folate Lvl >20.0 4.8 - 24.2 ng/mL Ferritin Result Value Ref Range Ferritin 82 30 - 400 ng/mL Hemogram Result Value Ref Range WBC 8.8 4.0 - 9.5 x10(3)/mcL RBC 5.05 4.00 - 5.21 x10(6)/mcL Hemoglobin 14.5 11.7 - 15.5 g/dL Hematocrit 43.6 35.7 - 45.8 % MCV 86.3 82.6 - 94.4 fL MCH 28.7 27.1 - 32.0 pg MCHC 33.3 31.7 - 35.0 g/dL Platelets 247 145 - 357 x10(3)/mcL RDWSD 41.6 37.0 - 46.0 fL RDWCV 13.3 11.5 - 14.1 % MPV 11.2 7.6 - 12.9 fL nRBC % Auto 0.0 % nRBC Abs Auto 0.000 0.000 - 0.000 x10(3)/mcL Differential, Automated Result Value Ref Range Neutrophils % 43.8 % Neutr Abs (ANC) 3.85 1.70 - 6.10 x10(3)/mcL Lymphocytes % 47.8 % Lymphocytes Abs 4.2 (H) 0.9 - 3.2 x10(3)/mcL Monocytes % 5.6 % Monocyte Abs 0.5 0.3 - 0.9 x10(3)/mcL Eosinophils % 1.7 % Eosinophils Abs 0.2 0.0 - 0.4 x10(3)/mcL Basophils % 0.6 % Basophils Abs 0.0 0.0 - 0.1 x10(3)/mcL Immature Gran % 0.50 % Zahra Gran Abs 0.04 0.00 - 0.04 x10(3)/mcL Assessment: 56 y.o. lady with better BG and A1c down to 7.5% again today on 70/30 mix, Invokana, metformin, glipizide for her Diabetes Type 2. She had gastric bypass surgery ~ 6 year ago with significant wt lossdown 60-85 lbs from 250 to 179-185 lbs and stable at 178 lbs today with BMI 29-32 range. A1c has been reasonable 6.8-7.8% range over the past 4 yrs on very low dose insulin 70/30 mix 5-10u TID and rarely used sliding scale. She is still having good c-peptide 2.9 from her own insulin production which is good news but not enough for her body need due to underlying insulin resistance. She is pleasedwith her wt & A1c results and wants to lose wt further and to keep A1c < 6.5-7% for her diabetic neuropathy. Complication Risk Status: complications present +peripheral neuropathy in both feet with h/o foot drop and walking with walker to help her balance Also, treated for chronic vttamin D deficiency (25vitamin D down 18 and then better at 38-47 and then 70 in Jul 2017 => 44 since Jun 2019, pending today), on vitamin D 50,000 iu 2x/wk ->then tapered to weekly per bariatric team. Her B12 was trending down from 400s to 300s and we already gave her B12 injection x1 on 03/09/16 once as a booster dose for her neuropathy and follow-up lab showed no rmal B12 at 448 in => 1,870 in Jun 2019=>1,487 in Jan 2020, so she already reduced B12to every other day since then. Plan: 1. Medication: To continue levothyroxine 25 mcg daily on empty stomach at least 30 mins before breakfast. Target TSH 0.5-3.0 for her weight and fatigue. Adjustment of diabetes treatment regime: To continue 70/30 mix 10u 2-3x/day to keep BG down to 100-180 range more consistently which will help get rid of yeast infection. will allow her to taper the dose by 2u if needed.. To use Humalog pen sliding scale as needed if BG>180 while on 70/30 mix (based on 1u:20 BG ratio). To cont glipizideER 10 mg qAM &PM To continue invokana 300 mg qAM for her DM and weight control. To cont metformin 500 mg tid (could not tolerate a higher dose) To cont vitamin D 50,000 iu weekly and 2 of Valliant MVI with iron which contains iron (she [...] while on insulin 4. Lab: already checked today as above. To recheck lab every 3-6 months with PCP for her A1c, TSH at [facility] lab and will let her know the results during the interim. 5. RTC: Next visit in 12 months (for 7-y post gastric bypass) or earlier needed. Will [...] AM EDT TH Visit (TeleHealth) [place] [address] Wyatt Higgins MD [facility] [address] documented as of this encounter Visit Diagnoses Diagnosis Type 2 diabetes, controlled, with neuropathy Type II or unspecified type diabetes mellitus with neurological manifestations, not stated as uncontrolled Hypothyroidism, acquired Unspecified hypothyroidism Vitamin D deficiency Unspecified vitamin D deficiency History of gastric bypass Bariatric surgery status Dyslipidemia Other and unspecified hyperlipidemia documented in this encounter Care Teams Powder Guard Relationship Specialty Start Date End Date Ruth Munoz, CHIEF CREATIVE OFFICER [address] [place] [address] PCP - General Family Medicine 02/05/19 documented as of this encounter
--- OUTSIDE RECORDS SUMMARY | 2024-05-15 11:07 | XMS_ITS | Encounter Summary ---
Author Organization [facility] [place] [address] Care Team Providers Care Hse Advisor Name Role Phone MunozRuth jerome Lilibeth JUAREZ Primary Care Provider + Encounter Details Date Type Department Care Team (Late st Contact Info) Description 08/05/2021 11:12 AM EDT Anesthesia [place] [address] Kvng Lind MD [facility] [place] [address] Anesthesia Record Procedure Summary Procedure Name Responsible Anesthesiologist Anesthesia Start Time Anesthesia Stop Time COLONOSCOPY, DIAGNOSTIC (WRVU 3.26) (Trunk) Kvng Lind MD 08/05/21 1112 08/05/21 1143 Events Date Time Event Comment 08/05/2021 0940 1112 AN Verify 1112 Start 1112 An Start Data 1118 An Induction 1124 Anesthesia Ready 1137 Procedure Stop 1143 an stop data 1143 Recovery or ICU Handoff Esperanza ent care was transferred to the destination unit staff after review of the patient's medical history, current anesthetic/surgical status and plan, according to the Provider Handoff Checklist. 1143 Stop Meds Name Total IV Lidocaine 60 mg Propofol 100 mg Propofol INF 150.96 mg lactated ringers infusion 250 mL * Agents Name O2 Air N2O O2 Auxiliary Flowmeter 1 * Blood No blood administrations on file. Lines, Drains, and Airways Type Details Placement Removal Drain/Device Site 06/29/17; 1630; Left ; lower; abdomen; collapsible closed device; Sterile prep and drape, Sterile technique 06/29/17 1630 by Padma Zhou RN Drain/Device Site 06/29/17; 1630; Righ t; lower; abdomen; collapsible closed device; Sterile prep and drape, Sterile technique 06/29/17 1630 by Padma Zhou RN Wound 01/25/16; 1448; abdomen; 06/20/22 (LDA cleanup utility RA#[id number]); 1715 (LDA cleanup utility RA#[id number]) 01/25/16 1448 by Johanne Stuart RN 06/20/22 1715 by Tyrell Garcia Incision 06/29/17; 1622; abdomen; 06/20/22 (LDA cleanup utility RA#[id number]); 1715 (LDA cleanup utility RA#[id number]) 06/29/17 1622 by Padma Zhou RN 06/20/22 1715 by Tyrell Garcia (RETIRED) Peripheral IV Line - Single Lumen 08/05/21; 1010; dorsal arch vein (top of hand), right; [id number] catheter system; Anatomical Landmarks; 22 gauge; len cuba; distraction, tolerated well, appears comfortable; 03/29/22 (LDA Cleanup utility RA#[id number]); 1027 (LDA Cleanup utility RA#[id number]) 08/05/21 1010 by Len Calderon RN 03/29/22 1027 by Paul Valdez documented in this encounter Social History Tobacco [...] on file documented as of this encounter OR Notes * Anesthesia Postprocedure Evaluation - Kvng Lind MD - 08/05/2021 12:33 PM EDT Department of Anesthesiology Post-procedure Note Patient: Martha Benoit Procedure Summary Date: 08/05/21 Room / Location: [facility] ENDO 3 / [facility] ENDOSCOPY Anesthesia Start: 1112 Anesthesia Stop: 1143 Procedure: COLONOSCOPY, DIAGNOSTIC (N/A Trunk) Diagnosis: (screening) (hx of hyperplastic and tubular polyps) Surgeons: Anam Stuart MD Responsible Provider: Kvng Lind MD Anesthesia Type: MAC ASA Status: 3 All Anesthesia Providers: Anesthesiologist: Kvng Lind MD SOCIAL WORKER AIDE: Lisa Raphael CRNA Vitals Value Taken Time BP 119/65 08/05/21 1220 Temp 36.3 ??C (97.4 ??F) 08/05/21 1148 Pulse 83 08/05/21 1200 Resp 18 08/05/21 1215 SpO2 96 % 08/05/21 1222 Pain Level 0 08/05/21 1210 Vitals shown include unvalidated device data. Patient Location: PACU/[facility] Level of Consciousness: Awake and Alert Pain Management: Satisfactory Analgesia PONV: None Cardiovascular Status: At Baseline Respiratory Status: At Baseline Postoperative Fluid Status: Intravascular EUvolemia Possible Anesthetic Complications: NONE apparent at time of evaluation Final Primary Anesthesia Type: MAC (The anesthetic type performed was the same as planned.) Comments: * Anesthesia Preprocedure Evaluation - Kvng Lind MD - 08/05/2021 7:16 AM EDT Pre-Anesthesia Evaluation for: Martha Benoit a 55 y.o. female. Procedure(s): COLONOSCOPY, DIAGNOSTIC Patient Active Problem List Diagnosis ??? 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 Peripheral autonomic neuropathy due to diabetes mellitus ??? Iron deficiency ??? Memory loss ??? Gastroesophageal reflux A. EGD done on 07/21/10: small hiatus [...] metaplasia. No H. pylori-like microorganism is seen. ??? Seborrheic keratosis ??? Unspecified hypothyroidism ??? Peripheral neuropathy-severe generalized severe generalized peripheral neuropathy & Lt foot/toe drop 02/23/10: nerve conduction studies showed severe generalized peripheral neuropathy. In addition, there is active denervation across multiple root and peripheral nerve distribution in the left lower extremity. Dr. Julio Cesar Wright suggested lumbar puncture in [place] -if high protein, may need IVIG therapy or try two days of high dose steroid therapy ??? Preoperative Class III obesity BMI 43, S/P gastric bypass 01/04/16 Bariatric Surgery Program 1. Attended Introduction to the [facility] Bariatric Surgery Program seminar, a comprehensive two hour meeting that provides a program overview, education on bariatric surgeries offered at [facility], risks andbenefits, as well as patient expectations and follow up: 08/05/14. [facility] BSP Educational seminars viewed: 3. Grades on post-testin-100%. The BSP Educational Handbook is provided at preoperative visit #1. 2. Pre-operative programmatic evaluations required: PCP evaluation and letter of support to proceedwith surgery, [facility]SP labwork (can be done on day of visit #1) and psychological evaluation- minimum of2 visits. 3. Bariatric Surgery Program evaluations with RD and MANAGED SECURITY SALES CONSULTANT: 11/03/15 4. Weight history: 198 pounds on 08/25/04, 207 pounds on 03/20/09, 249 pounds on 07/01/14, 253 pounds on 02/20/15 5. Gallbladder status: 6. Insurer specific requirements: [place] medicaid- 3 months of supervised counseling 7. BSP Team meeting discussion: no Post surgery course: 1. Admitted to [facility] on 01/24/16 with nausea and vomiting, failure to progress diet.Transfer to [facility] on 01/25/16 ??? Vitamin D deficiency Lab 04/30: 25vitamin D = 19 -> started on vitamin D 50,000 iu weekly Lab 10/2009: 25vitamin D = 35-> increased to 2x/week for 2-3 months to keep it in mid range soon-in preparation for gastric bypass in the near future. 02/19/10: 25vitamin D = 51 ??? History of kidney stones-bilateral 1-2 mm Nov 2000 - [facility] Oct 2000 - stent Dec, Aug, March - distal ureteral stone extraction Jul - [facility] - [place] ??? Chronic foot pain-s/p heel spur surgeries ? ? Diabetic retinopathy & neuropathy +DM for 10+ years -on insulin since 2006, +severe diabetic neuropathy and mild retinopathy A1c 8.3%(02/19/10)<-8.8%(10/2009)<-8.1%(05/31)<-8.9%(04/30)<-10.4%(10/08/08) <-12.7(04/29)<-11.6%(12/28)<-10.6(06/29)<-9.7% (04/28) Normal c-peptide 3.3 -> 1.5 (02/19/10) icd 9 357.2 No past medical history on file. Past Surgical History: Procedure Laterality Date ??? CREATED BY INTERFACE excision of a left foot heel spur in 11/2004 Procedure Date: Nov 2004 ??? CREATED BY INTERFACE PRK for hyperopic astigmatism OU in 06/2004 Procedure Date: Jun 2004 ??? CREATED BY INTERFACE tubal ligation BL Procedure Date: Unknown ??? CYSTOSCOPY Left 01/15/1995 stent placement ??? CYSTOSCOPY Left 04/03/2001 ??? CYSTOSCOPY Left 08/26/2001 ??? CYSTOSCOPY Left 10/31/2000 ??? HEEL SPUR SURGERY Left ??? LITHOTRIPSY Left 12/26/2000 ??? PRO EXCISE EXCESS SKIN TISSUE, ABDOMEN N/A 06/29/2017 ABDOMINOPLASTY (WRVU 17.11) performed by James Rosenthal MD at [facility] MAIN OR ??? PRO LAP GASTRIC BYPASS/BRADY-EN-Y N/A 01/04/2016 @LAPAROSCOPIC GASTROPLASTY, performed by Jose Mai MD at [facility] MAIN OR ??? PRO UPPER GI ENDOSCOPY, BIOPSY 11/16/2011 EGD WITH BIOPSY performed by ALISA RICHARDS at [facility] ENDOSCOPY ??? PRO UPPER GI ENDOSCOPY, DIAGNOSTIC N/A 11/04/2015 EGD, UPPER GI ENDOSCOPY performed by Kisha Doss MD at [facility] ENDOSCOPY ??? PRO UPPER GI ENDOSCOPY, DIAGNOSTIC N/A 01/04/2016 ENDOSCOPY, UPPER GI, DIAGNOSTIC, WITH OR WITHOUT SPECIMENS performed by Jose Mai MD at [facility] MAIN OR ??? TUBAL LIGATION ??? UPPER GI ENDOSCOPY, EXAM 11/16/2011 UPPER GI ENDOSCOPY performed by ALISA RICHARDS at [facility] ENDOSCOPY Social History Tobacco Use ??? Smoking status: Never Smoker ??? Smokeless tobacco: Never Used Substance Use Topics ??? Alcohol use: No Social History Substance and Sexual Activity Drug Use No No Known Allergies Medications: MAR and/or home medications have been reviewed. Physical Exam: Preprocedure Vitals Current as of 08/05/21 0716 No BP, pulse, respiration, SpO2, or temperature recorded. Height: Weight: BMI: IBW: Airway Assessment: Mallampati: I TM distance: >3 FB Neck ROM: full Cardiovascular Assessment: system normal Pulmonary Assessment: breath sounds clear to auscultation pulmonary exam normal Dental Assessment: - normal exam Misc Assessment: IV access: Peripheral line Last Filed Perioperative Cognitive Screening None Anesthesia Plan: ASA 3 MAC, with a(n) intravenous induction 55 yo woman with h/o hyperplastic and tubular polyps for screening colonoscopy Chart and labs reviewed; patient seen and examined PMH significant for TII diabetes mellitus with retinopathy and peripheral neuropathy; A1C 7.5 on 05/31/21 Severe generalized polyneuropathy (long axonal neuropathy) Obesity s/p R-N-Y and panniculectomy; BMI 33.4 No cardiac or pulmonary problems. No recent URI. Well-controlled GERD on omeprazole (asymptomatic in preop). Polyneuropathy, evaluated by EMG, shows dysfunction of long axons. bilateral hands numb/tingle. L foot weak. No problems with anesthesia in the past. Mac3 Gr. 1 Impression/Plan: ASA 3 MAC/Propofol sedation; routine monitors Risks, plans, and procedures discussed with patient who understands and consents; questions and concerns addressed Region - Other Informed Consent: Anesthetic plan and risks discussed with patient. Plan discussed with SOCIAL WORKER AIDE. Anesthesia Screening documented in this encounter Plan of Treatment Upcoming Encounters Date Type Department Care Team (Late st Contact Info) Description 02/19/2025 9:00 AM EDT TH Visit (TeleHealth) [place] [phone] Wyatt Higgins MD [facility] [place] [address] documented as of this encounter Visit Diagnoses Not on filedocumented in this encounter Administered Medications Inactive Administered Medications - up to 3 most recent administrations Medication Order MAR Action Action Date Dose Rate Site lactated ringers infusion 100 mL/hr, Intravenous, CONTINUOUS, Starting on Ava 08/05/21 at 1000, Until Ava 08/05/21 at 1504, Endoscopy (Day of Procedure) Restarted 08/05/2021 11:12 AM EDT New Bag 08/05/2021 10:19 AM EDT 100 mL/hr 100 mL/hr lidocaine (pf) (Xylocaine) (20 mg/mL) 2% injection syringe Intravenous, PRN, Starting on Ava 08/05/21 at 1118, Until Ava 08/05/21 at 1143, Anesthesia Intra-op, Routine Given 08/05/2021 11:18 AM EDT 60 mg propofoL (Diprivan) 10 mg/mL bolus injection (Anesthesia) Intravenous, PRN, Starting on Ava 08/05/21 at 1118, Until Ava 08/05/21 at 1143, Anesthesia Intra-op Given 08/05/2021 11:22 AM EDT 30 mg Given 08/05/2021 11:20 AM EDT 20 mg Given 08/05/2021 11:18 AM EDT 50 mg propofoL (Diprivan) infusion Intravenous, CONTINUOUS PRN, Starting on Ava 08/05/21 at 1120, Until Ava 08/05/21 at 1143, Anesthesia Intra-op, Routine Rate/Dose Change 08/05/2021 11:27 AM EDT 100 mcg/kg/min 48.96 mL/hr Rate/Dose Change 08/05/2021 11:22 AM EDT 150 mcg/kg/min 73 .44 mL/hr New Bag 08/05/2021 11:20 AM EDT 200 mcg/kg/min 97.92 mL /hr documented in this encounter Care Teams Hse Advisor Relationship Specialty Start Date End Date Ruth Munoz, PUNCHER AND FASTENER [address] [place] [address] PCP - General Family Medicine 02/05/19 documented as of this encounter
--- OUTSIDE RECORDS SUMMARY | 2024-05-15 11:07 | XMS_ITS | Encounter Summary ---
Author Organization [facility] [place] [address] Care Team Providers Care Application Designer Name Role Phone Ruth Munoz Lilibeth JUAREZ Primary Care Provider + Reason for Visit * Reason Onset Date Comments Other 04/05/2022 Encounter Details Date Type Department Care Team (Late st Contact Info) Description 04/05/2022 [place] [address] Wyatt Higgins MD [facility] [place] [address] Other Social History Tobacco Use Types Packs/Day [...] encounter Miscellaneous Notes * Telephone Encounter - Kate Abbott RN - 04/05/2022 10:32 AM EDT Copied from [facility] #[id number]. Topic: Specialty Dept CRMs - Generic Call >> Apr 05, 2022 10:22 AM Violeta Gamble wrote: Specialist: Wyatt Higgins MD Relationship (if other than patient-full name): Julia- General Surgery Reason for Call: Julia calling in for Martha she is wondering if Dr. Higgins has any routine labs that need to be done before her may appointment. Martha is going in for labs on 06/07/22 at 12:30 andwould like to have any completed that Dr. Higgins would need or want done. Julia states that the orders can just be put in the system and they will let Martha know. Please call Julia with any further questions. documented in this encounter Plan of Treatment Upcoming Encounters Date Type Department Care Team (Late st Contact Info) Description 02/19/2025 9:00 AM EDT TH Visit (TeleHealth) [place] [address] Wyatt Higgins MD [facility] [place] [address] documented as of this encounter Visit Diagnoses Not on filedocumented in this encounter Care Teams Application Designer Relationship Specialty Start Date End Date Ruth Munoz APRN [address] [place] [address] PCP - General Family Medicine 02/05/19 documented as of this encounter
--- OUTSIDE RECORDS SUMMARY | 2024-05-15 11:07 | XMS_ITS | Encounter Summary ---
[place] [address] Care Team Providers Care Seat Builder Name Role Phone Munoz Ruthantony Mcelroy APRN Primary Care Provider + Encounter Details Date Type Department Care Team (Late st Contact Info) Description 04/05/2022 Telephone [place] [phone] Haritha Conley Social History Tobacco Use Types Packs/Day Years [...] encounter Miscellaneous Notes * Telephone Encounter - Haritha Conley - 04/05/2022 10:03 AM EDT Patient needs labs for Jun 07 visit with Gastro documented in this encounter Plan of Treatment Upcoming Encounters Date Type Department Care Team (Late st Contact Info) Description 02/19/2025 9:00 AM EDT TH Visit (TeleHealth) [place] [address] Wyatt Higgins MD [facility] [place] [address] documented as of this encounter Visit Diagnoses Not on filedocumented in this encounter Care Teams Seat Builder Relationship Specialty Start Date End Date Ruth Munoz, TRAFFIC REPORTER [address] [place] [address] PCP - General Family Medicine 02/05/19 documented as of this encounter
--- OUTSIDE RECORDS SUMMARY | 2024-05-15 11:07 | XMS_ITS | Encounter Summary ---
Author Organization [facility] [place] [address] Care Team Providers Care Project Development Manager Name Role Phone MunozRuth jerome Lilibeth JUAREZ Primary Care Provider + Reason for Visit * Reason Comments Medication Refill Encounter Details Date Type Department Care Team (Late st Contact Info) Description 06/01/2022 [place] [phone] Judith Reinoso MD [facility] [place] [address] Social History Tobacco Use Types Packs/Day Years [...] AM EDT TH Visit (TeleHealth) [place] [phone] Wyatt Higgins MD [facility] [place] [address] documented as of this encounter Visit Diagnoses Not on filedocumented in this encounter Care Teams Project Development Manager Relationship Specialty Start Date End Date Ruth Munoz, LARRY [address] [place] [address] PCP - General Family Medicine 02/05/19 documented as of this encounter
--- OUTSIDE RECORDS SUMMARY | 2024-05-15 11:07 | XMS_ITS | Encounter Summary ---
[place] [address] Care Team Providers Care Farm Mechanic Name Role Phone MunozRuth jerome Lilibeth JUAREZ Primary Care Provider + Reason for Visit * Reason Comments Medication Refill Encounter Details Date Type Department Care Team (Late st Contact Info) Description 04/08/2022 Refill Dermatology at [address] [place] [address] Galdino Gilliland MD [address] [facility] [place] [address] Social History Tobacco Use Types Packs/Day Years [...] AM EDT TH Visit (TeleHealth) [place] [phone] Wyatt Higgins MD [facility] [place] [address] documented as of this encounter Visit Diagnoses Not on filedocumented in this encounter Care Teams Farm Mechanic Relationship Specialty Start Date End Date Ruth Munoz APRN [address] [place] [address] PCP - General Family Medicine 02/05/19 documented as of this encounter
--- OUTSIDE RECORDS SUMMARY | 2024-05-15 11:07 | XMS_ITS | Encounter Summary ---
[place] [address] Care Team Providers Care Hydrochloric Manufacturing Supervisor Name Role Phone Ruth Munoz LARRY Primary Care Provider + Reason for Visit * Reason Comments Medication Refill Medication Management Encounter Details Date Type Department Care Team (Late st Contact Info) Description 10/18/2021 Specialty [place] [address] Aaron Nunez RPH Social History Tobacco Use Types Packs/Day [...] as of this encounter Progress Notes * Aaron Nunez RPH - 10/18/2021 9:57 AM EST Clinical Management Plan: Refill Specialty Pharmacy Consultation; Aaron Nunez RPH Comprehensive Medication Management (CMM) Martha Benoit [...] Reconciliation Discrepancies (compared to [facility] med list) No Specialty Pharmacy Refill Questionnaire Refill Questionnaire 10/18/2021 What is the name of the specialty medication you are refilling? cosentyx Are you taking any new medications? No Any new medical condition? No Any new allergies? No Any new side effects that are bothersome? No What date will you need this fill by? 10/23/2021 Adherence: Any missed doses? No Patient understands no changes to current drug regimen were made. Aaron Nunez RPH 10/18/21 10:02 AM documented in this encounter Plan of Treatment Upcoming Encounters Date Type Department Care Team (Late st Contact Info) Description 02/19/2025 9:00 AM EDT TH Visit (TeleHealth) [place] [address] Wyatt Higgins MD [facility] [place] [address] documented as of this encounter Visit Diagnoses Not on filedocumented in this encounter Care Teams Hydrochloric Manufacturing Supervisor Relationship Specialty Start Date End Date Ruth Munoz APRN [address] [place] [address] PCP - General Family Medicine 02/05/19 documented as of this encounter
--- OUTSIDE RECORDS SUMMARY | 2024-05-15 11:07 | XMS_ITS | Encounter Summary ---
[place] [address] Care Team Providers Care Maintenance Engineer Oil Field Name Role Phone Ruth Munoz LARRY Primary Care Provider + Reason for Visit * Reason Comments Medication Management Encounter Details Date Type Department Care Team (Late st Contact Info) Description 05/12/2022 Specialty [place] [address] Nura Lozano Aline Social History Tobacco Use Types Packs/Day Years [...] this encounter Progress Notes * Nura Lozano RPH - 05/12/2022 4:06 PM EDT Clinical Management Plan: Transfer of Care/Discharge Specialty Services Specialty Pharmacy Consultation; Nura Lozano RPH Comprehensive Medication Management (CMM) Martha Benoit [address] [facility] [address] Telephone Information: Work Phone Not on file. Is the patient transferring services to a different Specialty Pharmacy or discontinuing the medication? Discontinuing Medication Medication: cosentyx Reason for discontinuation or transfer: DC-d cosentyx switching to new therapy. Approximate date of discontinuation or transfer: 05/12/2022 Patient's response to therapy: ineffective Summary of services provided by [facility] Specialty: New start, RF call, PHQ9, Care Plan, Follow up Summary of on-going needs: no Referral for additional services (if applicable): no Is patient aware of referral? no Instructions provided to patient about discharge/transfer: no Provider aware of discontinuation or transfer: yes Patient understands no changes to current drug regimen were made at the appointment and that [facility] isproviding recommendations (summary located at top of note) for provider review and follow up. Nura Lozano RPH 05/12/22 4:06 PM documented in this encounter Plan of Treatment Upcoming Encounters Date Type Department Care Team (Late st Contact Info) Description 02/19/2025 9:00 AM EDT TH Visit (TeleHealth) [place] [address] Wyatt Higgins MD [facility] [place] [address] documented as of this encounter Visit Diagnoses Not on filedocumented in this encounter Care Teams Maintenance Engineer Oil Field Relationship Specialty Start Date End Date Ruth Munoz APRN [address] [place] [address] PCP - General Family Medicine 02/05/19 documented as of this encounter
--- OUTSIDE RECORDS SUMMARY | 2024-05-15 11:07 | XMS_ITS | Encounter Summary ---
Author Organization [facility] [place] [address] Care Team Providers Care Trimming Department Blocker Name Role Phone MunozRuth jerome Lilibeth JUAREZ Primary Care Provider + Encounter Details Date Type Department Care Team (Late st Contact Info) Description 03/17/2022 Refill Dermatology at [address] [place] [phone] Benita Salazar, BAND NAILER Social History Tobacco Use Types Packs/Day Years [...] AM EDT TH Visit (TeleHealth) [place] [address] Wyatt Higgins MD [facility] [place] [address] documented as of this encounter Visit Diagnoses Not on filedocumented in this encounter Care Teams Trimming Department Blocker Relationship Specialty Start Date End Date Ruth Munoz, MAMMALOGIST [address] [place] [address] PCP - General Family Medicine 02/05/19 documented as of this encounter
--- OUTSIDE RECORDS SUMMARY | 2024-05-15 11:07 | XMS_ITS | Encounter Summary ---
[place] [address] Care Team Providers Care Financial Services Assistant Name Role Phone Ruth Munoz LARRY Primary Care Provider + Reason for Visit * Reason Comments Medication Refill Encounter Details Date Type Department Care Team (Late st Contact Info) Description 08/25/2021 Specialty [place] [address] Filemon Sheth RPH Social History Tobacco Use Types Packs/Day [...] as of this encounter Progress Notes * Filemon Sheth RPH - 08/25/2021 1:43 PM EDT Clinical Management Plan: Refill Specialty Pharmacy Consultation; Filemon Sheth RPH Comprehensive Medication Management (CMM) Martha Benoit [...] Known Allergies Medication Reconciliation Discrepancies (compared to [facility] med list) No Specialty Pharmacy Refill Questionnaire Refill Questionnaire 08/25/2021 What is the name of the specialty medication you are refilling? - Are you taking any new medications? No Any new medical condition? No Any new allergies? No Any new side effects that are bothersome? No What date will you need this fill by? 08/27/2021 Adherence: Any missed doses? No Patient understands no changes to current drug regimen were made. Filemon Sheth RPH 08/25/21 1:45 PM documented in this encounter Plan of Treatment Upcoming Encounters Date Type Department Care Team (Late st Contact Info) Description 02/19/2025 9:00 AM EDT TH Visit (TeleHealth) [place] [address] Wyatt Higgins MD [facility] [place] [address] documented as of this encounter Visit Diagnoses Not on filedocumented in this encounter Care Teams Financial Services Assistant Relationship Specialty Start Date End Date Ruth Munoz APRN [address] [place] [address] PCP - General Family Medicine 02/05/19 documented as of this encounter
--- OUTSIDE RECORDS SUMMARY | 2024-05-15 11:07 | XMS_ITS | Encounter Summary ---
Author Organization [facility] [place] [address] Care Team Providers Care Logistics Research Engineer Name Role Phone Ruth Munoz LARRY Primary Care Provider + Reason for Visit * Reason Comments Establish Care Encounter Details Date Type Department Care Team (Late st Contact Info) Description 06/07/2022 1:30 PM EDT Office [place] [address] Christiana Jewell APRN [facility] [place] [address] [facility] [place] [address] Status post bariatric surgery; Disorder of iron [...] on file documented as of this encounter Patient Instructions * Patient Instructions* Christiana Jewell, DETECTIVE AUTOMOBILE SECTION - 06/07/2022 1:30 PM EDT [facility] aircraft life support fitter Latosha [phone] and Julia [phone] Dietitians: [phone] Surgeons/ nurse practitioners: [phone] Nurse line: [phone] Dear Martha, Please see your electronic medical record note from today for details we discussed at your visit. Below is some additional general information that you may find helpful. Testing: It would be helpful if you can have your lab work drawn a couple days before your visit gal[facility] facility so the results are available at the time of your follow up visit. If you have labwork done by your primary rn coronary care unit before that date, please have a copy sent to the Bariatric Surgery Program. Please call/send my [employer] message if you have not heard from us within 2 weeks of having labs work done. Here's the link to [facility] Lab hours and locations: [email or web address] Next visit: Follow up visits are done at 4 months and 12 months after surgery and yearly thereafter. Some patients are evaluated on a more frequent basis. Please call [phone] if you do not receive an appointment by 3-4 weeks prior to the expected visit. Vitamins/Nutrition/Activity Recommendations: Please see your visit note for personalized recommendations General Vitamin recommendations: Multivitamins with minerals twice daily- needs to be an under 50 multivitamin that contains iron. Vitamin B12 500 mcg by mouth once daily Calcium citrate 500-600 mg with Vitamin D 400 units twice daily (600 mg in AM and 600 mg in PM- 2 pills twice a day) (or 1 chewable twice a day) Iron supplement: as specified in today's visit Vitamin D: as specified in today's visit General Nutrition recommendations: 1,000-1,200 calories per day (300 calories per meal, 100 calories per snack, 1-2 snacks per day) 60 grams of protein per day (20 grams per meal) 48-64 oz of non-caloric and hydrating fluids per day (6-8, 8 oz cups) Do not drink with meals- pushes food through more quickly, can cause upset stomach Activity: Aim for 30 minutes of exercise daily, 5 days a week of both cardio and strength training exercises. Skinfold care: Cleanse area with soap and water. Blow dry area on low setting with fine unhairer. Avoid excessive heat and/or sweating as friction and moisture can exacerbate disease. Try OTC Dove clinical strength anti perspirant to affected areas nightly or an absorbent powder such as Gold Cash and Desinex Apply cotton strips (such as strips from old sheets) or larger size cotton underwear folded beneathskin folds to act as a wick. Do not apply vivien cloth toweling which can cause further irritation Try combination of over the counter hydrocortisone cream with over the counter antifungal cream such as lotrimin twice a day for 2 weeks. If your symptoms do not improve you may require prescription of anti-fungal cream/powder. Follow up with PCP if symptoms worsen/fail to improve with above strategies. Constipation: Increase fiber, fluids and fitness. Yerba Prima is a fiber supplement that comes in capsule form. Additionally, consider trying 1 capful daily of miralax daily (preferably at night) with a goal of at least 1 BM per day. You can increase the dose as needed every 2-3 days (by adding on 1 capful either morning or night) without safety concerns, noting that individual tolerance becomes limited by loose stools and bloating with doses higher than 2 capfuls twice daily. Please call if you do not have a BM after 3 days. On days with loose stools, we recommend reducing miralax to 1/2 capful daily but continue to take miralax every day Nausea: Common causes for nausea post bariatric surgery are: Eating too fast, eating too much, drinking with meals, or not chewing well enough. Be sure to eat slowly and chew food well. Take at least30 minutes or more to eat a meal. Call if symptoms worsen, fail to improve, or if you have difficulty keeping food or fluid down. Alcohol: is not recommended for at least 6-12 months after surgery. Alcohol is absorbed much fasterand stays in your system much longer post bariatric surgery and as a result there is an increase risk of alcohol misuse/abuse after bariatric surgery. It should be used sparingly, no more than one drink per occasion, no more than 2 drinks a week. Alcohol is toxic to the liver, a source of empty calories, it can cause ulcers, vitamin and mineral deficiencies, as well as impair digestion and absorption of nutrients. Call or follow up with your therapist or primary care provider if you are struggling or think your alcohol intake is a problem. control for women of child bearing age: is recommended for at least 18-24 months after surgery. f non-prescribed drugs and treet drugs is unsafe Anti-inflammatory medications such as Ibuprofen (Advil), Aleve (Naproxen), Excedrin, Philomena-Hinton should be used sparingly after gastric bypass, since they increase the risk of ulcer and bleeding. A bone mineral density scan (DEXA) is recommended every 2 years after bariatric surgery. Please schedule this study through your primary care providers office. Hair Loss: is associated with rapid weight loss and is seen approximately 3 to 6 months after surgery and can last 3 to 6 months. It is almost always temporary. Eating a healthy diet with 60 grams ofprotein per day and taking your multivitamin with minerals will help. Sleep Apnea: If you have a history of sleep apnea and have a CPAP/BiPAP, please be sure to follow up with the sleep center to confirm your pressures and determine if continued use of CPAP/BiPAP is recommended. Potential lifetime risks of gastric bypass include risk of ulcer, which is increased with alcohol and antiinflammatory medications and internal hernia (less than 5%), which may be increased with higher than predicted weight loss Potential lifetime risks of sleeve gastrectomy include developed heartburn or severe reflux Call us: If you have concerns. If you have unexplained abdominal pain. if you see blood in your stool or vomit blood If you have prolonged vomiting Post Surgery Support Group: Our post surgery support group meets at [facility] on the first Monday of every month from 1:00 PM-2:00 PM. You can attend online or in person. Use the following link to attend online: [email or web address] Nutrition and Activity apps- Baritastic, My Fitness Pal, Lose It, My Plate Internet resources: www.[employer] www.Grocio www.eSKY.pleapMediaNetwork.CriticalMetrics www.[facility].com/blog [facility] facebook page: https://www.facebook.com/[facility]ric[facility]gery Books & Magazines: - Recipes for Life After Weight Loss Surgery by Ashli Wiseman - Shrink Yourself by Dr Stephen Dial - Eating Well - www.MakeMyTrip.com.CriticalMetrics - Cooking Light- www.cookinglight.CriticalMetrics Anxiety: The Happiness Trap by Mir Short The Mindfulness and acceptance workbook for anxiety By James Sunshine. Mindful eating: What are you Hungry For? By Jose Duran The Mindful Diet by Abby Hernandez and the [facility] group. Emotional eating: End Emotional Eating by Nany Matos Calming the Emotional Storm Floresita Cortes documented in this encounter Progress Notes * Christiana Jewell APRN - 06/07/2022 1:30 PM EDT Bariatric [place] [address] Reason for visit: Bariatric Surgery follow up visit Subjective: Martha Benoit is s/p laparoscopic Janeth-en-Y gastric bypass on 01/04/16, she Presents today for annual BSP follow up. Overall tolerating foods/fluids and trying to make sure she is meeting nutritional/fluid requirements. Pt reports no difficulty swallowing, epigastric pain, or bloating. No GERD symptoms (well managed with PPI). No N/V. Reports stable trouble with bowels re: neuropathy. No bariatricrelated concerns/complaints today. Martha continues to have good weight maintenance. She reports she thinks about how much food she wants, then eats less. Interim Health: Patient reports health has been stable overall. No bariatric related surgeries, hospitalizations, or ED visits since the last visit. No kidney stones or atraumatic fractures. Current Supplements: Hx of Vit D deficiency- taking Vit D 50K/week managed by Dr. Reinoso, Multi- vitamin with minerals/iron twice daily (Flinstones), Vit B12 500 mcg daily, Hx of kidney stones- no longer takes Calcium supplement. Pt follows with PCP/specialist for disease management and age specific screening. Pre-Bariatric Surgery Obesity related medical issues: ? Diabetes [x]? Yes on metformin, insulin, glucotrol []? Not a baseline issue ? HTN: []? Yes [x]? Not a baseline issue ? GERD: [x]? Yes, well managed with PPI []? Not a baseline issue ? Hyperlipidemia: [x]? Yes improved not requiring treatment []? Not a baseline issue ? DAMIAN: []? Yes, [x]? Not a baseline issue ? Musculoskeletal issues: [x]? Yes continues to be an on-going issue. Ambulates with walker. ?? Patient Active Problem List Diagnosis Code ??? History of kidney stones-bilateral Z87.442 ??? Chronic foot pain-s/p heel spur surgeries M79.673, G89.29 ? ? Diabetic retinopathy & neuropathy E11.319 ??? Preoperative Class III obesity BMI 43, S/P gastric bypass 01/04/16 E66.01 ??? Peripheral neuropathy-severe generalized G62.9 ??? Vitamin D deficiency E55.9 ??? 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 Peripheral autonomic neuropathy due to diabetes mellitus E11.43 ??? Unspecified hypothyroidism E03.9 ??? Seborrheic keratosis L82.1 ??? Gastroesophageal reflux K21.9 ??? Iron deficiency E61.1 ??? Memory loss R41.3 Review of Systems Constitutional: energy level is variable (attributes to aging), no c/o restless leg. Neuro: no c/o paresthesias, no changes in memory. CV: no c/o chest pain or palpitations. Pulm: denies SOB or cough. GI: as above. Moving bowels every other day. 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 Skin: No c/o redundant skin or skin fold rashes. Health Habits: Tobacco: Never. ETOH: Never.. NSAID use: None. Dietary history/ exericse/ activity level: See dietitian note from today's visit for complete dietary evaluation. Meds and Allergies reviewed. Complications summary: Early Prolonged hospital stay. Admitted to [facility] on 01/24/16 with nausea and vomiting, failure to progress diet. Transfer to [facility] on 01/25/16 Late none ? Pre-op 1/12/16 Wt (lbs) 247 BMI 43.7 WT visit #2 249 HT:63 Introductory meeting date: 07/26/14 ?? Post-op Visit date Wt (lbs) BMI %EBW lost 03/23/16 216 38.2 26.1 07/05/16 189 33.4 55 04/06/17 177 31.4 66 02/12/18 175 31 68 02/05/19 184 32.4 60 10/06/20 185 ~32.5 ~60 10/05/21 180-182 (reported) - 61 06/07/22 178 32.6 65% ? Objective: LMP 10/30/2015 (Approximate) Physical Exam General: Alert, pleasant, NAD, appears well. Abdomen: Soft, non-distended, non-tender. Resp: No increased work of breathing. Speaking in full sentences. No cough/wheeze witnessed. Skin: No significant xcess skin noted abdomen. Skin is warm and dry. No rash noted on exam today. Psychiatric: Normal mood and affect. Appropriate eye contact. No results found for this or any previous visit (from the past 72 hour(s)). Assessment 56 y.o. female who is 6 years s/p Janeth-en-Y gastric bypass with 65 % of excess body weight lost Plan: ??? S/p bariatric surgery: o Doing well from a bariatric surgery perspective, overall pleased with surgical outcome. Discusseddietary considerations and strategies for continued success . Reviewed importance of meeting nutritional/protein/fluid requirements, tracking food and food choices, pairing carbs with protein, being careful to avoid eating too fast, eating too much, drinking with meals, or not chewing well enough. ??? Discussed risks associated with alcohol intake after bariatric surgery (increased risk of alcohol misuse/abuse, increased risk of ulcers, empty calorie). o Patient has met with manager med surg today, please see note for additional details/dietary evaluation. ??? Obesity related co-morbidities: o Improved/stable overall, patient to continue to follow with PCP/specialist. ??? Risk for vitamin deficiencies: o Will check iron studies, folate, Vit D, Vit B 1, Vit B 12, hemogram, CMP, PTH. Will make additional recommendations once lab results are available. o Reviewed recommended vitamin/mineral supplements- See RD note for additional details. o Pt reminded that a bone mineral density scan (DEXA) is recommended every 2 years after bariatric surgery. Recommended f/u with primary care provider to check if up to date. RTC in December (anniversary month)/1 year for next BSP follow up visit, with labs. Call/rtc sooner prn with questions/concerns or unexplained abdominal pain, prolonged nausea, vomiting or inability to hydrate. Bariatric Program Summary report is availabe for patient's review via e-DH I spent a total of 30 minutes associated with this encounter, including chart review, the patient encounter, and documentation. Christiana Jewell APRN RECOMMENDED BARIATRIC SURGERY PROGRAM POSTOPERATIVE FOLLOW-UP: Follow up: done at 4, 12 and yearly thereafter. High risk patients are evaluated on a more frequentbasis. *Typical Supplement recommendations: Multivitamin with minerals twice a day, B12 500 mcg once a day, calcium citrate 600 mg/400 units vitamin D twice a day, iron (ferrous fumarate, carbonyl iron taken with vitamin C 250 mg once every other day) for menstruating females or those with Iron Deficiency. Labwork: Hemogram, ferritin, iron (transferrin) saturation, iron, folate, B1, B12, D (25 hydroxy only), Intact PTH and comprehensive metabolic profile at 4, 12 months and yearly. If labwork is done by the primary rn coronary care unit: please send a copy to the Bariatric Surgery Program, General Surgery Clinic, [facility], or fax [phone] * Nany Tai, RD - 06/07/2022 1:30 PM EDT Bariatric Surgery Program Nutrition Progress Note Encounter Type: follow up SUBJECTIVE: Topics Discussed/Patient Concerns: ?? Just checking in. ?? Interested in a colonoscopy but unsure what she can tolerate for a prep. Advised we typically have pts do a Miralax prep. Social history: On disability. Lives with one daughter and one son and his and 4 kids.Has 8 grown children, 4 biological and 4 adopted. Raised nieces and nephews when her sister , has12 kids in total. ?? Goal weight: none, rough idea is 160-170#, doesn't really care about weight loss. Wants to improve diabetes, be off insulin, ??improve neuropathy, and save her feet. ?? OBJECTIVE: ?? Date of Bariatric Surgery: 01/04/16 Type of Bariatric Surgery:??Laparoscopic Janeth-en-Y Gastric Bypass ? Weight History:?? Date Weight (lbs) HT BMI Comments Summer 2014 260# ? Highest Weight (pt reported) 07/01/14 249# 63 44.1 Initial program weight 11/03/15 247# 63 43.7 1st pre-op visit 01/04/16 249# EWL % 44.1 Surgery 03/09/16 216# 26.1% 38.2 2 months post-op 07/05/16 189# 48.7% 33.5 6 months post-op 04/06/17 177# 58.8% 31.4 15 months post-op 02/12/18 175# 60.5% 31 2 years post-op 02/05/19 184# 60% 32.6 3 years post-op 10/06/20 ~185# 60% 32.6 Nearly 5 years post-op 10/05/21 182# 61% 32.2 Nearly 6 years post-op (per pt) 06/07/22 178# 65% 31.5 6 years 5 months post-op Predicted weight loss with surgery is an estimated 50-70% of excess body weight, which would be a goal weight between 172-193#. ?? Vitamin/Mineral Supplements??(reported by patient): Supplement Type Brand/Form Dosage/Amount Frequency Comments Multivitamin Colome's chewable 1 Twice??daily ?? Calcium ? none Hx of Kidney stones, pt does not want to take.??states she'd rather have osteoporosis than another kidney stone Vitamin??B12 ?? 500 mcg daily ?? Iron ? none ??causes constipation W/o vit C Vitamin D2 rx 50,000 IU weekly ? Food Allergies/Intolerances:??lactose intolerant-??milk,??ice cream, cottage cheese- can eat in small amounts. Broccoli is difficult to digest ?? Tracking Intake:??None ? 24-Hour??Intake:??Pt??had difficulty providing a 24-hour recall. More hungry in the evening but limits how much she can eat. I eat what I want to eat. More inclined to eat fruits and vegetables. Worst meal is a bagel w coffee. Breakfast Shredded wheat w a tiny bit of milk this morning. AM Snack Lunch PM Snack Dinner Going to [employer] for dinner. Will likely have ribs and a couple vegetables. At home may have beef jerky and vegetables. HS Snack Protein/ grams per day: Hydrating fluids- oz/ day: 3 x 16.9 oz bottles water daily Soda: None. ETOH: Caffeine: Coffee (w cream and sugar) - every other day Sweets: occasional Meals per day: ?? Feels hungry []never [x]sometimes []most of the time [] always ?? Has had dumping syndrome: lactose not sugar bothers her. Can eat a candy bar but ice cream. ?? In the past month, pt has vomited/regurgitated: none ?? Constipation/Diarrhea: difficulty moving bowels regularly d/t neuropathy. Has appt w neurology today Exercise: She cannot exercise due to foot drop bilaterally and using walker. 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 Sometimes uses cans for resistance training. ASSESSMENT: Summary of Weight Loss: Martha Benoit returns for routine follow-up at 3 years, 5 months s/p surgery. Her excess weight loss is at 65%. She is tolerating the diet. Fluid intake is OK. Difficult to determine protein/calorie intake. Weight relatively stable since 2017. Reviewed supplements. Pt states she will not take calcium due to history of kidney stones. She moves as tolerated. Suggested pt check in at our exit desk as she's leaving to get the phone number for GI to schedule her colonoscopy. NUTRITION INTERVENTION & MONITORING: ?? Provided support/encouragement and reinforced importance of meeting nutritional goals. ?? Reviewed vitamin and mineral supplement recommendations. Multivitamins with minerals twice daily- needs to be an under 50 multivitamin that contains iron. Vitamin B12 500 mcg by mouth once daily Vitamin D 50,000 IU weekly Consider DEXA scan to evaluate bone density. ?? Evaluation by nurse practitioner today. ?? Handouts provided: Bariatric Toolkit (revised 2020) documented in this encounter Plan of Treatment Upcoming Encounters Date Type Department Care Team (Late st Contact Info) Description 02/19/2025 9:00 AM EDT TH Visit (TeleHealth) [place] [address] Wyatt Higgins MD [facility] [place] [address] documented as of this encounter Visit Diagnoses Diagnosis Status post bariatric surgery Bariatric surgery status Disorder of iron metabolism Other disorders of iron metabolism documented in this encounter Care Teams Logistics Research Engineer Relationship Specialty Start Date End Date Ruth Munoz APRN [address] [place] [address] PCP - General Family Medicine 02/05/19 documented as of this encounter
--- OUTSIDE RECORDS SUMMARY | 2024-05-15 11:07 | XMS_ITS | Encounter Summary ---
[place] [address] Care Team Providers Care Auto Body Builder Apprentice Name Role Phone Ruth Munoz Lilibeth JUAREZ Primary Care Provider + Reason for Visit * Reason Comments Prior Authorization Enbrel Sureclick 50m g/mL SOAJ Encounter Details Date Type Department Care Team (Late st Contact Info) Description 05/13/2022 Specialty [place] [address] Louis Baeza, [facility] Social History Tobacco Use Types Packs/Day [...] encounter Progress Notes * Louis Baeza - 05/13/2022 11:07 AM EDT [facility], Medication Prior Authorization Submission Patient: Martha Benoit Patient : 1965 Patient Address: [address] [facility] [address] (home) Medication Name: ENBREL SURECLICK 50 MG/ML (1 ML) SUBCUTANEOUS PEN INJECTOR Medication ID: Subscriber Insurance: [place] Subscriber Insurance Comment: Fax: Physician: TERRANCE LYNN Physician Comment: Sent Via: Fax K[employer]ler: Ref/Case/PA#: Medication Strength Frequency Requested: Enbrel Sureclick 50mg/mL SOAJ. Inject the contents of one pen (50mg) SQ twice a week (every 3-4 days) for 3 months. Then inject the contents of one pen (50mg)SQ once a week thereafter. Qty/Day Supply: 06/19 New Start: New to Therapy Diagnosis & ICD-10 Code: Psoriasis L40.9 Patient Notified: No Submission Notes: None Louis Baeza 05/13/22 11:09 AM * Louis Baeza - 05/13/2022 11:07 AM EDT [facility], Prior Authorization Approval Medication Name: ENBREL SURECLICK 50 MG/ML (1 ML) SUBCUTANEOUS PEN INJECTOR Medication ID: Approval Dates: 05/13/2022 to 08/13/2022 Insurance requirements/notes: None Other Notes: None Case/Reference #: [id number] Approval notification Received via: Fax Copay: $3.00 Copay assistance: None Copay Notes: Insurance mandated Pharmacy: [facility] Fill[facility] at [facility]: Yes Pharmacy staff will be reaching out to the patient to inform them of their medication[facility]. If applicable, a pharmacist will speak with the patient to offer our specialty pharmacy services and to arrange delivery of their medication. Louis Baeza 05/13/22 12:24 PM documented in this encounter Plan of Treatment Upcoming Encounters Date Type Department Care Team (Late st Contact Info) Description 02/19/2025 9:00 AM EDT TH Visit (TeleHealth) [place] [address] Wyatt Higgins MD [facility] [place] [address] documented as of this encounter Visit Diagnoses Not on filedocumented in this encounter Care Teams Auto Body Builder Apprentice Relationship Specialty Start Date End Date Ruth Munoz APRN [address] [place] [address] PCP - General Family Medicine 02/05/19 documented as of this encounter
--- OUTSIDE RECORDS SUMMARY | 2024-05-15 11:07 | XMS_ITS | Encounter Summary ---
[place] [address] Care Team Providers Care Accountant Clerk Name Role Phone Ruth Munoz Lilibeth JUAREZ Primary Care Provider + Reason for Visit * Reason Comments Medication Management Encounter Details Date Type Department Care Team (Late st Contact Info) Description 05/13/2022 Specialty [place] [address] Romina Herbert RPH Social History Tobacco Use Types Packs/Day [...] as of this encounter Progress Notes * Romina Herbert RPH - 05/13/2022 1:23 PM EDT Specialty Pharmacy Consultation; Romina Herbert RPH Comprehensive Medication Management (CMM): Specialty Consult, Opt Out Martha Benoit Diagnosis: psoriasis Therapy Start Date: TBD ( New Start) Contact in person or via telephone: telephone Ms. Martha Benoit is a 56 y.o. (1965) female who was contacted in regard to specialty medication. Spoke with patient regarding Enbrel. A review of the medication therapy was performed. The medication was scheduled to be filled, and all medication related questions and concerns were addressed. The specialty pharmacy staff will follow up with the patient 5-7 days prior to next refill. Is the patient willing to proceed with the Clinical Assessment? No Summary and Recommendations: I spoke to Martha Benoit today in regards to starting Enbrel (switching from Cosentyx). Patient confirmed no new medications, allergies or medical conditions. Patient opted out of the new start consultation. We discussed the injection directions and the difference between injection techniques for Co sentyx versus Enbrel. She verbalized understanding. I referred her to utilizing the online video aswell for an injection demonstration. We spoke about the possible side effects of the medication andthe need for baseline labs, most importantly, a TB test within the last two years prior to starting. Patient confirmed she had a TB test but most likely not within the last two years. She stated she has lab work due for her appointments next month and would be okay if Dr Gilliland added on a TB quantiferon and other labs to the order. Patient was concerned on proceeding with therapy after touching base on the black box warnings of this medication: increased risk of infections, malignancy, TB. I inf ormed patient that with lab work, we can monitor her as she utilizes the therapy. Patient expressedthat she would like to touch base with the provider to determine if starting Enbrel was a better option than staying with her cosentyx. Patient did not have any further questions at this time but is aware of the specialty pharmacy 15/05 services. Economic Assessment: Patient is agreeable to medication copay: No Copay Amount: 3 Day Supply: 28 Date Needed: TBD Therapy Assessment: Appropriate Therapy: Yes Current Medication Dosing/Route/Frequency: Enbrel 50 mg sub BIW (every 3-4 days) for 3 months then once a week thereafter. Additional equipment/supplies required: no Care Plan Reviewed and Approved by Pharmacist : Yes Problem List: Patient Active Problem List Diagnosis Code ??? History of kidney stones-bilateral Z87.442 ??? Chronic foot pain-s/p heel spur surgeries M79.673, G89.29 ? ? Diabetic retinopathy & neuropathy E11.319 ??? Preoperative Class III obesity BMI 43, S/P gastric bypass 16 E66.01 ??? Peripheral neuropathy-severe generalized G62.9 ??? Vitamin D deficiency E55.9 ??? 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 Peripheral autonomic neuropathy due to diabetes mellitus E11.43 ??? Unspecified hypothyroidism E03.9 ??? Seborrheic keratosis L82.1 ??? Gastroesophageal reflux K21.9 ??? Iron deficiency E61.1 ??? Memory loss R41.3 Medications Reviewed: Yes Medications reconciled: No Allergies Reviewed:Yes Allergies reconciled: No Pharmacist follow-up needed: Yes Informed patient of specialty pharmacy services: Yes Welcome Packet and Rights and Responsibilities: Patient provided welcome packet/rights and responsibilities: Yes Date Confirmed: 02/14/20 -Patient is aware a licensed pharmacist is available 24 hours a day, 7 days a week to discuss medication-related questions or concerns: Yes -Patient verbalizes understanding of the common side effect profile of their medication. The patient is able to call 911 or seek urgent care if signs/symptoms of allergy or harmful adverse reactions occur: Yes Patient understands no changes to current drug regimen were made at the appointment and that the pharmacist is providing recommendations (summary located at top of note) for provider review and follow up. Romina Herbert RPH 05/13/22 1:28 PM documented in this encounter Plan of Treatment Upcoming Encounters Date Type Department Care Team (Late st Contact Info) Description 02/19/2025 9:00 AM EDT TH Visit (TeleHealth) [place] [address] Wyatt Higgins MD [facility] [place] [address] documented as of this encounter Visit Diagnoses Not on filedocumented in this encounter Care Teams Accountant Clerk Relationship Specialty Start Date End Date Ruth Munoz, SAP PROJECT MANAGER [address] [place] [address] PCP - General Family Medicine 02/05/19 documented as of this encounter
--- OUTSIDE RECORDS SUMMARY | 2024-05-15 11:07 | XMS_ITS | Encounter Summary ---
Author [facility] [place] [address] Care Team Providers Care International Accountant Name Role Phone uRth Munoz LARRY Primary Care Provider + Encounter Details Date Type Department Care Team (Late st Contact Info) Description 03/23/2022 Telephone Dermatology at [address] [address] Lydia Funes RN Social History [...] Telephone Encounter - Lydia Funes RN - 03/23/2022 4:13 PM EDT Pt had called earlier today and stated that her flare up of her psoriasis was about the same maybe a little bit better. She also stated that she felt it was also spreading. Pt was seen on 03/17/2022 and was placed on cyclosporine modified 100mg 1 p.o. twice daily for 1 week then 1 p.o. daily for a week then discontinue. Pt thought she would have dramatic results in a short time frame. It has been a week since she has been seen. She also stated that her left leg mid bruce down is swelling and it is no worst than when she did see Dr. Gilliland. Did say when she elevates her legs the swelling does godown some but comes back when she is on her feet again. Pt did sent photos through [facility] for Dr. Gilliland to see. Spoke with Dr. Gilliland who stated that it has been a week and patient needs to be on themedication longer for a response. Did state he wanted the patient to continue on cyclosporine modified 100mg 1 p.o. twice daily for another week before she goes to 1 p.o. daily for a week. She is also to take her Cosentyx dosing which is due on MondayMarch 26. Pt to call back in a week to provide update of her psoriasis. Pt notified of the recommendations from Dr. Gilliland and stated that she understood. Will call in the Cyclosporine to [facility] in [place] per the patient's request. Pt stated that she would like a refill of her Triamcinolone cream and would like a 1 pound jar and Wanted to see if Dr. Gilliland would switch her from Calcipotriene topical solution for her scalp which she is not using due to it stings when she applies it to her scalp and wanting to know if she can go back on Halog topical solution which she was prescribed in the past and thinking it will need a pre auth. Informed patient I would get with Dr. Gilliland in the morning and discuss with him and call her back 03/24/2022. Pt stated that she understood. Pt to call back if she has any questions or concerns. documented in this encounter Plan of Treatment Upcoming Encounters Date Type Department Care Team (Late st Contact Info) Description 02/19/2025 9:00 AM EDT TH Visit (TeleHealth) [place] [address] Wyatt Higgins MD [facility] [address] documented as of this encounter Visit Diagnoses Not on filedocumented in this encounter Care Teams International Accountant Relationship Specialty Start Date End Date Ruth Munoz, LARRY [address] [place] [address] PCP - General Family Medicine 02/05/19 documented as of this encounter
--- OUTSIDE RECORDS SUMMARY | 2024-05-15 11:07 | XMS_ITS | Encounter Summary ---
Author Organization [facility] [place] [address] Care Team Providers Care Product Lister Name Role Phone MunozAidan jeromeantony Mcelroy APRN Primary Care Provider + Encounter Details Date Type Department Care Team (Late st Contact Info) Description 05/18/2022 Telephone Dermatology at [address] [address] Benita Salazar LPN Social History [...] Telephone Encounter - Benita Salazar LPN - 05/18/2022 3:35 PM EDT Patient voiced very reluctant on changing biologics due to side effects. Currently on Cocentyx; not effective. Recommendation to start Enbrel. That one is not the one for me. Discussed her concerns. She has decided to continue with Cocentyx for one more month. At that time she will decide if she's willing to try another biologic. She has contacted [facility] specialty pharmacy her decision to continue with Cocentyx. She will contact Dr. Gilliland next month if she decides a different plan of care. documented in this encounter Plan of Treatment Upcoming Encounters Date Type Department Care Team (Late st Contact Info) Description 02/19/2025 9:00 AM EDT TH Visit (TeleHealth) [place] [address] Waytt Higgins MD [facility] [place] [address] documented as of this encounter Visit Diagnoses Not on filedocumented in this encounter Care Teams Product Lister Relationship Specialty Start Date End Date Ruth Munoz, [employer] [address] [place] [address] PCP - General Family Medicine 02/05/19 documented as of this encounter
--- OUTSIDE RECORDS SUMMARY | 2024-05-15 11:07 | XMS_ITS | Encounter Summary ---
[place] [address] Care Team Providers Care Outbound Sales Professional Name Role Phone Ruth Munoz LARRY Primary Care Provider + Reason for Visit * Reason Comments Medication Management Specialty Refill Management Encounter Details Date Type Department Care Team (Late st Contact Info) Description 05/18/2022 Specialty [place] [address] Oc Archer [facility] Social History Tobacco Use Types [...] encounter Progress Notes * Oc [facility] - 05/18/2022 3:32 PM EDT Clinical Management Plan: Refill Specialty Pharmacy Consultation; Oc Archer Aline Comprehensive Medication Management (CMM) Martha Benoit [...] Known Allergies Medication Reconciliation Discrepancies (compared to [facility] med list) No Specialty Pharmacy Refill Questionnaire Refill Questionnaire 05/18/2022 What is the name of the specialty medication you are refilling? cosentyx Are you taking any new medications? - Any new medical condition? - Any new allergies? - Any new side effects that are bothersome? - What date will you need this fill by? - *Pt will continue Cosentyx for at least 1 more month, then decide if she would like to switch to Enbrel or not Adherence: Any missed doses? No Patient understands no changes to current drug regimen were made. Oc Archer RPH 05/18/22 3:33 PM documented in this encounter Plan of Treatment Upcoming Encounters Date Type Department Care Team (Late st Contact Info) Description 02/19/2025 9:00 AM EDT TH Visit (TeleHealth) [place] [address] Wyatt Higgins MD [facility] [place] [address] documented as of this encounter Visit Diagnoses Not on filedocumented in this encounter Care Teams Outbound Sales Professional Relationship Specialty Start Date End Date Ruth Munoz APRN [address] [place] [address] PCP - General Family Medicine 02/05/19 documented as of this encounter
--- OUTSIDE RECORDS SUMMARY | 2024-05-15 11:07 | XMS_ITS | Encounter Summary ---
Author Organization [facility] [place] [address] Care Team Providers Care Escrow Agent Name Role Phone Ruth Munoz Lilibeth JUAREZ Primary Care Provider + Reason for Visit * Reason Comments Psoriasis Encounter Details Date Type Department Care Team (Late st Contact Info) Description 03/17/2022 3:00 PM EDT Office Visit Dermatology at [address] [id number] Galdino Gilliland MD [address] [facility] [place] [address] Psoriasis Social History Tobacco Use Types Packs/Day [...] Progress Notes * Galdino Gilliland MD - 03/17/2022 3:00 PM EDT Problem: 1. ??On Cosentyx since May 2020 2.?Psoriasis??on Humira from January to April 2020 with decreasing benefit 3.?History of significant psoriasis??in her?son and granddaughter 4. ??Status post 2 months of methotrexate??without significant improvement Martha follows up and states that her psoriasis is flaring. This is just developed over the last 3 days or so. Her psoriasis has been well controlled since I last saw her in February 2021 with Cosentyx. However recently she was exposed via her grandchildren to strep and did indeed have a documented strepthroat. She saw her PCP, has swabbed and tested positive. She was placed on penicillin. 3 or 4 daysinto the course of penicillin therapy is when she then developed this rash. She also states that she had a lot of stress because of a stalker. Examination reveals widespread papulosquamous papules and small plaques wildly of her arms or legs chest and back they are quite pruritic. Assessment plan: Flare of psoriasis, possibly due to strep pharyngitis/stress 1. Begin cyclosporine modified 100 mg 1 p.o. twice daily for 1 week then 1 p.o. daily for a week then discontinue 2. Next Cosentyx dosing will be on Monday, March 26 continue Cosentyx 3. If her skin does not improve consider switching to Humira or Enbrel. Patient would prefer going back to Enbrel because it works well for her previously 4. Patient has no known penicillin allergy, but I would advise her at this point to stop the penicillin in case this is a penicillin allergic reaction. 5. Patient will call me with her progress on March 25, prior to her next Cosentyx dosing. CC: Ruth Munoz APRN documented in this encounter Plan of Treatment Upcoming Encounters Date Type Department Care Team (Late st Contact Info) Description 02/19/2025 9:00 AM EDT TH Visit (TeleHealth) [place] [address] Wyatt Higgins MD [facility] [place] [address] documented as of this encounter Visit Diagnoses Diagnosis Psoriasis Other psoriasis documented in this encounter Care Teams Escrow Agent Relationship Specialty Start Date End Date Ruth Munoz, NATURAL GAS TREATING UNIT OPERATOR [address] [place] [address] PCP - General Family Medicine 02/05/19 documented as of this encounter
--- OUTSIDE RECORDS SUMMARY | 2024-05-15 11:07 | XMS_ITS | Encounter Summary ---
Author Organization [facility] [place] [address] Care Team Providers Care Dispute Specialist Name Role Phone MunozRuth jerome Lilibeth JUAREZ Primary Care Provider + Encounter Details Date Type Department Care Team (Late st Contact Info) Description 06/07/2022 3:30 PM EDT Office [place] [address] Wyatt Higgins MD [facility] [place] [address] Type 2 diabetes mellitus with diabetic neuropathy, unspecified whether senior living insulin use; Peripheral autonomic neuropathy due to diabetes mellitus; Hereditary sensorimotor neuropathy Social History Tobacco Use [...] Progress Notes * Wyatt Higgins MD - 06/07/2022 3:30 PM EDT Here in f/u for her peripheral neuropathy. For the last year she has had some left ear pain which was worked up at [facility]. I was unable to find any information on care everywhere. In October of this year she started to have decreased urine flow and she went to see a urologist at [facility]. Harder time urinating and defecating. Apparently there is some urinary hesitancy and the urologist told her to urinate on a scheduled basis every 4 hours. More recently she has had some problems with bowel movements but denies any significant constipation. She has problems pushing. She is not constipated. ?? HGBA1C was 7.5 which is relatively stable. ?? Her present weight is about 177lbs. She has a history of bariatric surgery and has weighed as much as 250 pounds. She has had diabetes since the age of 16 and uses insulin. She walks with a walker. ?? She wants to follow-up with gastroenterology here for a colonoscopy as her father of colon cancer and she has a history of polyps. She claims to be unable to use the usual, conventional means toclean her bowel. Hence there are problems with getting it scheduled. Neuro Exam: MS: Awake, alert, oriented to [...] midline SCM and trap strength intact Motor: Atrophy noted in foot muscles. High arched foot. UE: 5/5 R, 5/5 L Arm abduction at shoulder 5/5 R, 5/5 L Elbow extension, elbow flexion 5/5 R, 5/5 L Wrist adduction, abduction, flexion, and extension 5/5 R, 5/5 L Finger abduction, flexion, and extension 4/5 R, 4/5 L Thumb abduction 4/5 weakness in the intrinsic hand muscles bilaterally LE: 5/5 R, 5/5 L Hip flexion 5/5 R, 5/5 L Hip adduction 5/5 R, 5/5 L Knee flexion and extension 1/5 R, 0/5 L Foot dorsiflexion 4/5 R, 3/5 L Foot plantarflexion 1/5 R, 1/5 L Foot eversion 3/5 R, 2/5 L Foot inversion Sensory: Moderately reduced??light touch??and??temperature??in a glove distribution in her bilateral arms Significantly reduced light touch, temperature, and vibration in LE BL, from toes to proximal to her knees Proprioception impaired in BL great toes Reflexes: ?DTRs ?Trace??R, Trace??L ??Biceps ?Absent?? R, Absent??L ??Brachioradialis ?Absent?? R, Absent??L ??Triceps ?trace??R , trace??L ??Patellar ?Absent?? R, Absent??L ??Achilles tendon ?Toes - Both mute? Coordination: ?Finger to nose intact??with no [...] possible neuropathy. Her sister was also diabetic. ?? I will try to follow-up with Martha in about 12 months time and she is to contact me in the interim with any questions or issues. documented in this encounter Plan of Treatment Upcoming Encounters Date Type Department Care Team (Late st Contact Info) Description 02/19/2025 9:00 AM EDT TH Visit (TeleHealth) [place] [address] Wyatt Higgins MD [facility] [place] [address] documented as of this encounter Visit Diagnoses Diagnosis Type 2 diabetes mellitus with diabetic neuropathy, unspecified whether senior living insulin use Peripheral autonomic neuropathy due to diabetes mellitus Type II or unspecified type diabetes mellitus with neurological manifestations, not stated as uncontrolled Hereditary sensorimotor neuropathy documented in this encounter Care Teams Dispute Specialist Relationship Specialty Start Date End Date Ruth Munoz APRN [address] [place] [address] PCP - General Family Medicine 02/05/19 documented as of this encounter
--- OUTSIDE RECORDS SUMMARY | 2024-05-15 11:07 | XMS_ITS | Encounter Summary ---
[place] [address] Care Team Providers Care Chair Installer Name Role Phone Ruth Munoz LARRY Primary Care Provider + Reason for Visit * Reason Comments Medication Refill Encounter Details Date Type Department Care Team (Late st Contact Info) Description 04/15/2022 Specialty [place] [address] Aaron Nunez RPH Social History Tobacco Use [...] Progress Notes * Aaron Nunez RPH - 04/15/2022 4:14 PM EDT Clinical Management Plan: Refill Specialty [...] Known Allergies Medication Reconciliation Discrepancies (compared to [facility] med list) No Specialty Pharmacy Refill Questionnaire Refill Questionnaire 04/15/2022 What is the name of the specialty medication you are refilling? cosentyx Are you taking any new medications? No Any new medical condition? No Any new allergies? No Any new side effects that are bothersome? No What date will you need this fill by? 04/22/2022 Adherence: Any missed doses? No Patient understands no changes to current drug regimen were made. Aaron Nunez RPH 04/15/22 4:15 PM documented in this encounter Plan of Treatment Upcoming Encounters Date Type Department Care Team (Late st Contact Info) Description 02/19/2025 9:00 AM EDT TH Visit (TeleHealth) [place] [address] Wyatt Higgins MD [facility] [place] [address] documented as of this encounter Visit Diagnoses Not on filedocumented in this encounter Care Teams Chair Installer Relationship Specialty Start Date End Date Ruth Munoz APRN [address] [place] [address] PCP - General Family Medicine 02/05/19 documented as of this encounter
--- OUTSIDE RECORDS SUMMARY | 2024-05-15 11:07 | XMS_ITS | Encounter Summary ---
Author Organization [facility] [place] [address] Care Team Providers Care Missile And Missile Checkout Technician Name Role Phone Ruth Munoz Lilibeth JUAREZ Primary Care Provider + Encounter Details Date Type Department Care Team (Late st Contact Info) Description 08/05/2021 9:30 AM EDT - 08/05/2021 10:15 AM EDT Surgery [place] [address] Anam Stuart MD [facility] [place] [address] COLONOSCOPY, DIAGNOSTIC (WRVU 3.26) Social History Tobacco Use Types Packs/Day Years [...] Sign Reading Time Taken Comments Blood Pressure 129/70 08/05/2021 9:54 AM EDT Pulse 91 08/05/2021 9:54 AM EDT Temperature 36.8 ??C (98.3 ??F) 08/05/2021 9:54 AM ED T Respiratory Rate 16 08/05/2021 9:54 AM EDT Oxygen Saturation 97% 08/05/2021 9:54 AM EDT Inhaled Oxygen Concentration - - Weight 81.6 kg (180 lb) 08/05/2021 9:54 AM EDT Height 157.5 cm (5' 2) 08/05/2021 9:54 AM EDT Body Mass Index 32.92 08/05/2021 9:54 AM EDT documented in this encounter Discharge Instructions * Discharge Instructions* Khalida Kennedy RN - 08/05/2021 11:54 AM EDT Colonoscopy What to expect after the procedure You may feel a little more gassy or bloated than usual. This is normal. You should expect the return of normal bowel function in the 2 to 3 days. Activity Because of the sedation that you received your judgement and reaction time are effected ?? Go home and rest quietly for the remainder of the day. You may resume your normal activities tomorrow. ?? Change from one position to the next slowly. You may lose your balance unexpectedly ?? Be careful on stairs, as you may be unsteady on your feet FOR THE NEXT 24 HRS ?? DO NOT DRIVE OR OPERATE ANY MACHINERY ?? DO NOT DRINK ALCOHOLIC BEVERAGES ?? DO NOT SIGN LEGAL DOCUMENTS ?? If you are a smoker: DO NOT SMOKE WHILE YOU ARE ALONE Diet ?? Start by eating small portions of foods that ordinarily will not upset your stomach . Avoid gas producing foods for the next few days ?? Be gentle with what you choose to start with ?? Drink plenty of fluids ( unless your doctor has told you not to). IV SITE-- slight redness, or tenderness is normal. You can use warm compresses if you become concerned. If the tenderness +/or redness increases or foul drainage and a red streak occurs, please contact your PCP immediately When shoud you call for help? Call 911 anytime you think you may need emergency care. For example If you pass out ( loss of consciousness) If you pass maroon or bloody stools If you have severe belly pain Call your doctor now or seek immediate medical care If your stools are black and tarlike If your stools have streaks of blood, but you did not have a biopsy or any polyps removed If you have belly pain, or your belly is swollen and firm If you vomit If you have a fever If you are very dizzy Watch closely for changes in your health, and be sure to contact your doctor if you have any problems Your doctor will let you know when you will need your next colonoscopy. The results of your test and your risk for colorectal cancer will help your doctor decide how often you need to be checked. Monday-Monday Same Day Endo [phone] [id number]-8p Otherwise contact [phone] and ask to speak to the marker assembler adapted physical education specialist Follow up care is a florence part of your treatment and safety. Be sure to make and go to all appointments, and call your doctor if you are having problems. Discharge instructions reviewed with patient who expresses understanding documented in this encounter Medications at Time of Discharge Medication Sig Dispensed Refills Start Date End Date fluconazole (Diflucan) 150 mg Tablet Take 1 tablet by mouth as needed (for yeast infection). Once per day 3 tablet 3 05/31/2021 cyclobenzaprine (Flexeril) 10 mg Tablet Take 10 mg by mouth nightly. UNABLE TO FIND Med Name: [place] vitamins take one tablet by mouth twice daily baclofen (LIORESAL) 20 mg Tablet Take 20 mg by mouth 4 times daily. freestyle lite strips 1 each by Other route 4 times daily. DX: E11.40, E11.65 400 each 3 2020 glipiZIDE XL (Glucotrol XL) 10 mg Tablet Extended Rel 24 hr TAKE ONE TABLET BY MOUTH TWICE A DAY 180 tablet 3 11/23/2020 omeprazole (PRILOSEC) 20 mg Capsule, Delayed Release(E.C.)Indicat ions:Status post bariatric surgery,Intestinal malabsorption, unspecified type TAKE ONE CAPSULE BY MOUTH EVERY DAY 30 MINUTES PRIOR TO BREAKFAST ON AN EMPTY STOMACH 90 capsule 3 09/11/2019 nystatin (MYCOSTATIN) Powder 1 Application as needed. 2 04/24/2019 SF 5000 PLUS 1.1 % Cream BRUSH ON TEETH ONCE DAILY DIRECTED 11 06/26/2018 oxyCODONE-acetaminop hen (PERCOCET) 10-325 mg Tablet Take 1 tablet by mouth 6 times daily. 06/12/2017 gabapentin (NEURONTIN) 300 mg Capsule Take 600 mg by mouth nightly. lidocaine (LIDODERM) 5 %(700 mg/patch) Place 1 patch onto the skin every 12 hours as needed. ergocalciferoL, vitamin D2, (vitamin D2) 50,000 unit Capsule TAKE ONE CAPSULE BY MOUTH EVERY WEEK 12 capsule 3 07/19/2021 06/01/2022 levothyroxine (Synthroid) 25 mcg Tablet Take 1 tablet by mouth daily. 90 tablet 4 05/31/2021 08/24/2022 canagliflozin (Invokana) 300 mg Tablet Take 300 mg by mouth daily. 90 tablet 3 05/31/2021 06/01/2022 Sod Phos Frio-Sod Phos Dibasic (OsmoPrep) 1.5 gram TabletIndications:Ad enomatous polyp of colon, unspecified part of colon Take 4 tablets with 8 ounces of water every 15 minutes x 5 doses the night before colonoscopy then the morning of the colonoscopy take 4 tablets with 8 ounces of water every 15 minutes x 3 doses 32 tablet 05/18/2021 10/05/2021 metFORMIN XR (Glucophage XR) 500 mg Tablet Sustained Release 24 hr TAKE ONE TABLET BY MOUTH THREE TIMES A DAY WITH MEALS 270 tablet 3 04/12/2021 05/12/2022 cyanocobalamin, vitamin B-12, 500 mcg Tablet TAKE ONE TABLET BY MOUTH EVERY DAY 11/29/2020 05/12/2022 insulin aspart protamine-insulin aspart 70/30 (novoLOG Mix 70-30 FlexPen) Insulin Pen Inject 20-30 units subcutaneously 3 times daily 60 mL 3 2020 01/17/2022 secukinumab 150 mg/mL Pen Injector Inject 300 mg subcutaneously every 28 days. 2 Pen 11 08/05/2020 09/09/2021 RESTASIS 0.05 % Dropperette Place 1 drop into both eyes 2 times daily. 03/22/2019 05/12/2022 triamcinolone (KENALOG) 0.1 % Ointment APPLY TOPICALLY TO ARMS LEGS AND ABDOMEN TWO TIMES A DAY NEEDED 3 05/01/2018 07/29/2022 documented as of this encounter H&P Notes * Anam Stuart MD - 08/05/2021 10:35 AM EDT Patient Name: Martha Benoit Patient Age: 55 y.o. Birthdate: 1965 Admit date: 08/05/2021 Attending Physician: Anam Stuart MD Gastroenterology & Hepatology Pre-Procedure History and Physical Planned Procedure: Colonoscopy: Indication: screening/surveillance, family history colon cancer (father age 60) Patient Active Problem List Diagnosis Code ??? [...] Iron deficiency E61.1 ??? Memory loss R41.3 Medications: Reviewed in EDH No Known Allergies Social History/Family History: Reviewed in EDH. No changes Exam: Patient Vitals for the past 24 hrs: Temp Pulse Resp BP SpO2 O2 Device 08/05/21 0954 36.8 ??C (98.3 ??F) 91 16 129/70 97 % RA GEN: NAD, AAOX3 HEENT: NC/AT dryMM, anicteric Chest: CTAB Heart: RRR, nl s1, s2 Abdomen: normal bowel sounds, soft, non tender Assessment and Plan: Proceed with Colonoscopy: ASA Grade: ASA 3 - Patient with moderate systemic disease with functional limitations Mallampati: II (soft palate, uvula, fauces visible) Sedation plan: MAC Risks and benefits of the procedure were discussed with the patient. Risks discussed including bleeding, infection, reaction to anesthesia, perforation or other intraabdominal trauma, pancreatitis (if applicable), missing a cancer (if applicable) and/or other unforseen complication. Informed Consent signed by patient (or telephone service representative). documented in this encounter Plan of Treatment Upcoming Encounters Date Type Department Care Team (Late st Contact Info) Description 02/19/2025 9:00 AM EDT TH Visit (TeleHealth) [place] [address] Wyatt Higgins MD [facility] [place] [address] documented as of this encounter Procedures Procedure Name Priority Date/Time Associated Diagnosis Comments POCT GLUCOSE Routine 08/05/2021 12:05 PM EDT POCT FINGERSTICK GLUCOSE Routine 08/05/2021 12:04 PM EDT Colonoscopy, Diagnostic ([id number]) 08/05/2021 11:12 AM EDT screening hx of hyperplastic and tubular polyps COLONOSCOPY Routine 08/05/2021 11:09 AM EDT POCT GLUCOSE Routine 08/05/2021 10:10 AM EDT documented in this encounter Results * POCT Glucose (08/05/2021 12:05 PM EDT) POC Glucose 104 65 - 199 mg/dL [facility] Comment: Supplemental ranges: <140 mg/dL before meals <180 mg/dL all other times of the day Blood 08/05/2021 12:0 5 PM EDT 08/04/2021 12:00 PM EDT Anam Stuart MD POINT OF CARE FABIENNE T ORDERABLES [facility] [place] [address] * POCT Fingerstick Glucose (08/05/2021 12:04 PM EDT) POC Glucose 104 60 - 199 mg/dl 08/05/2021 12:0 4 PM EDT Anam Stuart MD POINT OF CARE FABIENNE T ORDERABLES * COLONOSCOPY (08/05/2021 11:09 AM EDT) Pathologist [facility] COLONOSCOPY [facility] Endoscopy Procedure Date: 08/05/2021 11:09 AM ? Patient Name: Martha Benoit ? N: [id number] ? Date of : 1965 ? Age: 55 ? Order #: [id number] ? Instrument Name: [id number] ? Procedure: ? Colonoscopy Indications: ? Screening in patient at increased ? risk: Family history of 1st-degree ? relative with colorectal cancer ? before age 60 years Patient Profile: ? This is a 55 year old female. Providers: ? Anam Stuart MD, Sung Sifuentes. ? BRENDAN Aquino, Liza Mccarty MD: ?Ruth Munoz [facility]: ? Monitored Anesthesia Care Complications: ? No [...] preparation was evaluated using ? the BBPS ([place] Bowel Preparation ? Scale) with scores of: [...] PROVATION 08/05/2021 11:0 9 AM EDT Ruth Mcelroy Alexander JUAREZ GENERAL SURGICAL ORDERABLES Performing Organization Address City/[facility]/ZIP Co de Phone Number PROVATION * POCT Glucose (08/05/2021 10:10 AM EDT) POC Glucose 118 65 - 199 mg/dL [facility] Comment: Supplemental ranges: <140 mg/dL before meals <180 mg/dL all other times of the day Blood 08/05/2021 10:1 0 AM EDT 08/04/2021 12:00 PM EDT Anam Stuart MD POINT OF CARE FABIENNE T ORDERABLES Performing Organization Address City/[facility]/ZIP Co de Phone Number [facility] [place] [phone] documented in this encounter Visit Diagnoses Not [...] 10:19 AM EDT 100 mL/hr 100 mL/hr documented in this encounter Active and Recently Administered Medications Times are shown in EDT. Continuous Medication Order 08/03/2021 08/04/2021 08/05/2021 lactated ringers infusion 100 mL/hr, Intravenous, CONTINUOUS, Starting on Ava 08/05/21 at 1000, Until Ava 08/05/21 at 1504, Endoscopy (Day of Procedure) 1019 (New Bag - Prov ider: Jade Calderon RN)1111 (Paused - Provider: Lisa Raphael CRNA - Comment: Switch to gravity)1112 (Restarted - Provider: Lisa Raphael CRNA)1134 (Stopped - Provider: Lisa Raphael CRNA) documented in this encounter Care Teams Missile And Missile Checkout Technician Relationship Specialty Start Date End Date Ruth Munoz, JINGLE WRITER [address] [place] [address] PCP - General Family Medicine 02/05/19 documented as of this encounter
--- OUTSIDE RECORDS SUMMARY | 2024-05-15 11:07 | XMS_ITS | Encounter Summary ---
Author Organization [facility] [place] [address] Care Team Providers Care Machine Cementer And Folder Name Role Phone MunozRuth jerome Lilibeth JUAREZ Primary Care Provider + Reason for Visit * Reason Comments Medication Refill Encounter Details Date Type Department Care Team (Late st Contact Info) Description 07/17/2021 [place]ill [place] [id number] Judith Reinoso MD [facility] [place] [address] Social History Tobacco Use Types Packs/Day Years [...] AM EDT TH Visit (TeleHealth) [place] [phone] Wyatt Higgins MD [facility] [place] [address] documented as of this encounter Visit Diagnoses Not on filedocumented in this encounter Care Teams Machine Cementer And Folder Relationship Specialty Start Date End Date Ruth Munoz, LARRY [address] [place] [address] PCP - General Family Medicine 02/05/19 documented as of this encounter
--- OUTSIDE RECORDS SUMMARY | 2024-05-15 11:07 | XMS_ITS | Encounter Summary ---
Author Organization [facility] [place] [address] Care Team Providers Care Fifth Hand Name Role Phone Ruth Munoz SHRINK PIT OPERATOR Primary Care Provider + Encounter Details Date Type Department Care Team (Latest Contact Info) Description 10/05/2021 8:00 AM EST TH Visit (TeleHealth) [place] [address] Christiana Jewell APRN [facility] [place] [address] [facility] [place] [address] Status post bariatric surgery; Intestinal malabsorption, unspecified type Social History Tobacco Use Types Packs/Day Years [...] Patient Instructions * Patient Instructions* Christiana Jewell, SHRINK PIT OPERATOR - 10/05/2021 8:00 AM EST [facility] landing support specialist Latosha [phone] and Julia [phone] Dietitians: [phone] Surgeons/ nurse practitioners: [phone] Nurse line: [phone] Dear Martha, Please see your electronic medical record note from today for details we discussed at your visit. Below is some additional general information that you may find helpful. Testing: It would be helpful if you can have your lab work drawn a couple days before your visit galen [facility] facility so the results are available at the time of your follow up visit. If you have labwork done by your primary animal care specialist before that date, please have a copy sent to the Bariatric Surgery Program. Please call/send my Nordicplan message if you have not heard from us within 2 weeks of having labs work done. Here's the link to [facility] Lab hours and locations: [email or web address] Next visit: Follow up visits are done at 4 months and 12 months after surgery and yearly thereafter. Some patients are evaluated on a more frequent basis. Please call [phone] if you do not receive an appointment by 3-4 weeks prior to the expected visit. Vitamins/Nutrition/Activity Recommendations: Please see your visit note for personalized recommendations General Vitamin recommendations: ??? Multivitamins with minerals twice daily- needs to be an under 50 multivitamin that contains iron. ??? Vitamin B12 500 mcg by mouth once daily ??? Calcium citrate 500-600 mg with Vitamin D 400 units twice daily (600 mg in AM and 600 mg in PM-2 pills twice a day) (or 1 chewable twice a day) ??? Iron supplement: as specified in today's visit ??? Vitamin D: as specified in today's visit General Nutrition recommendations: ?? 1,000-1,200 calories per day (300 calories per meal, 100 calories per snack, 1-2 snacks per day) ?? 60 grams of protein per day (20 grams per meal) ?? 48-64 oz of non-caloric and hydrating fluids per day (6-8, 8 oz cups) ?? Do not drink with meals- pushes food through more quickly, can cause upset stomach Activity: ??? Aim for 30 minutes of exercise daily, 5 days a week of both cardio and strength training exercises. Skinfold care: 1. Cleanse area with soap and water. 2. Blow dry area on low setting with hairspring staker. 3. Avoid excessive heat and/or sweating as friction and moisture can exacerbate disease. 4. Try OTC Dove clinical strength anti perspirant to affected areas nightly or an absorbent powder such as Gold Cash and Desinex 5. Apply cotton strips (such as strips from old sheets) or larger size cotton underwear folded beneath skin folds to act as a wick. Do not apply vivien cloth toweling which can cause further irritation 6. Try combination of over the counter hydrocortisone cream with over the counter antifungal cream such as lotrimin twice a day for 2 weeks. 7. If your symptoms do not improve you may require prescription of anti-fungal cream/powder. 8. Follow up with PCP if symptoms worsen/fail [...] such as Ibuprofen (Advil), Aleve (Naproxen), Excedrin, [place] should be used sparingly after gastric bypass, [...] developed heartburn or severe reflux Call us: ??? If you have concerns. ??? If you have unexplained abdominal pain. ??? if you see blood in your stool or vomit blood ??? If you have prolonged vomiting Post Surgery Support Group: Our post surgery support group meets at [facility] on the first Monday of every month from 1:00 PM-2:00 PM. You can attend online or in person. Use the following link to attend online: [email or web address] Nutrition and Activity apps- Baritastic, My Fitness Pal, Lose It, My Plate Internet resources: www.Eve www.AristotlrdingtoAmgen.The Training Room (TTR) www.bariatriceating.com www.Tate's Bake ShopPal.The Training Room (TTR)/blog [facility] facebook page: [email or web address]://www.facebook.[email or web address] Books & Magazines: - Recipes for Life After Weight Loss Surgery by Ashli Wiseman - Shrink Yourself by Dr Stephen Dial - Eating Well - www.Good Eggs.The Training Room (TTR) - Cooking Light- www.cookinglight.The Training Room (TTR) Anxiety: The Happiness Trap by Mir Short The Mindfulness and acceptance workbook for anxiety By James Sunshine. Mindful eating: What are you Hungry For? By Jose Duran The Mindful Diet by Abby Hernandez and the [facility] group. Emotional eating: End Emotional Eating by Nany Matos Calming the Emotional Storm Floresita Cortes documented in this encounter Progress Notes * Allie Islas RD - 10/05/2021 8:00 AM EST Images from the original note were not included. Bariatric Nutrition Call made with Christiana Jewell APRN BARIATRIC SURGERY VIRTUAL NOTE 1. Reason/purpose for phone call: BSP follow up visit 2. The patient voiced an understanding of the reason and intent of the televisit and provided verbal consent to discuss clinical issues by telehealth. Additionally, the patient acknowledged that the telehealth consultation is a billable encounter, and that the patient or their medical insurance carrier could be billed. 3. Summary of conversation, decision making, and plan: see below encounter note for details. Time Attestation: I spent a total of 60 minutes associated with this encounter, including chart review, the patient encounter, and documentation. At time of the call patient was in [place]. SUBJECTIVE: Topics Discussed/Patient Concerns: ?? Pt states she has gained 3-4 lbs over the last 3 months. States she feels hungry often, especially in the evening. Pt reports she will often get up in the middle of the night to eat and struggles with snacking after dinner time. ?? We discussed increasing protein at meals to help with satiety, pt states that she is not a big meat eater. We reviewed non-meat high-protein foods. ?? Pt states she does not keep track of her meals, has trouble with recall d/t memory loss. Social history: Has 8 grown children, 4 biological and 4 adopted. Raised nieces and nephews when her sister , has 12 kids in total. Lives with one daughter and one son (nephew) in the house, no pets. On disability. Son (who had surgery) is supportive of her getting bariatric surgery. ?? Goal weight: none, rough idea is [...] 32.2 Nearly 6 years post-op (per pt) Predicted weight loss with surgery is an estimated 50-70% of excess body weight, which would be a goal weight between 172-193#. ?? Vitamin/Mineral Supplements??(reported by patient): Supplement Type Brand/Form Dosage/Amount Frequency Comments Multivitamin Austell's chewable 1 Twice??daily ?? Calcium ? none Hx of Kidney stones?? Vitamin??B12 ?? 500 mcg daily ?? Iron ? none causes constipation W/o vit C Vitamin D2 rx 50,000 IU weekly ? Food Allergies/Intolerances:??lactose intolerant-??milk,??ice cream, cottage cheese- can eat in small amounts. Broccoli is difficult to digest ?? Tracking Intake:??None ? 24-Hour??Intake:??Pt had difficulty providing a 24-hour recall. States she is not a big meat eater,snacks on beef jerky and likes pickles eggs. Reports night eating. Not a big breakfast eater. Breakfast 9-11a: oatmeal, milk, SF syrup AM Snack 12p: orange Lunch 2-3p: egg roll w/ carrots PM Snack Dinner 6-6:30p: BBQ ribs-2 and mashed potatoes (1 spoonful), peas and carrots HS Snack 8-9pm: Bagel (1/2) w/ butter and coffee (milk and sugar) 12:30p: toast and coffee (unsure if caffeinated or decaf) Protein- grams/day: 10-20g Hydrating fluids - oz/day: 20 oz x 6 (water or water w/ CL) Soda: n/a ETOH: none Caffeine: Yes, in coffee Other: ?? Vomiting/ regurgitation: no ?? Nausea: no ?? Constipation/diarrhea: difficulty moving bowels regularly d/t neuropathy ?? Dumping syndrome: none Exercise: She cannot exercise due to foot drop bilaterally and using walker. 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 ASSESSMENT: Martha Benoit returns for routine follow-up at 6 years s/p surgery. Her weight loss is at 61%. Pt is tolerating the diet and is meeting fluid goals but not protein goals. Pt reports she is hungry frequently, especially in the evening after dinner time. Pt also reports snacking in the middle of the night. We discussed the importance of meeting protein goals, eating protein at all meals and snacks,and eating protein first to help manage hunger. Pt states she is not a big meat eater or breakfast eater, we reviewed non-meat high protein foods. Reviewed supplements, pt is taking supplements as recommended (no calcium d/t hx of kidney stones). Pt is limited in her ability to exercise d/t foot drop bilaterally and using walker, pt is interested in adding in resistance band exercises. PLAN: ?? Provided support/encouragement and reinforced importance of meeting nutritional goals. ?? Aim for 60-80g of protein/day- eat protein at all meals and snacks, eat protein first ?? Avoid eating carbohydrates alone, pair carbohydrates with protein at meals and snacks ?? Consider tracking protein intake to help ensure that you are meeting protein goals ?? Reviewed vitamin and mineral supplement recommendations. Multivitamins with minerals twice daily- needs to be an under 50 multivitamin that contains iron. Vitamin B12 500 mcg by mouth once daily Vitamin D -weekly Rx ?? F/u per bariatric surgery guidelines. RTC in 1 year for next BSP follow up visit, with labs. Call/rtc sooner prn with questions/concerns. * Christiana Jewell APRN - 10/05/2021 8:00 AM EST Images from the original [place] [address] BARIATRIC SURGERY VIRTUAL NOTE 1. Reason/purpose for phone call: BSP follow up visit. 2. The patient voiced an understanding of the reason and intent of the televisit and provided verbal consent to discuss clinical issues by telehealth. Additionally, the patient acknowledged that the telehealth consultation is a billable encounter, and that the patient or their medical insurance carrier could be billed. 3. Summary of conversation, decision making, and plan: see below encounter note for details. Time Attestation: I spent a total of 30 minutes associated with this encounter, including chart review, the patient encounter, and documentation. Reason for visit: Bariatric Surgery follow up visit. Subjective: Martha Benoit is s/p laparoscopic Janeth-en-Y gastric bypass on 01/04/16, she presents today via telehealth visit for annual BSP follow up. Overall tolerating foods/fluids, doesn't track intake (states she eats a lot of fruits and vegetables). Feels like she is meeting nutritional/fluid requirements (diet recall is low in protein). No bariatric related concerns/complaints today. Endorses hunger returning. Feeling hungry 1 hr after meals at times. Supplements: Hx of Vit D deficiency- taking Vit D 50K/week managed by Dr. Reinoso, Multi- vitamin with minerals/iron twice daily (Flinstones), Vit B12 500 mcg daily, Hx of kidney stones- no longer takes Calcium supplement. Interim Health: Reports her health has been stable overall. No surgeries, hospitalizations, or bariatric related ED visits since the last visit. Hx of kidney stones, no recent issues. No atraumatic fractures. Pt follows with PCP/specialist for disease management and age specific screening. Obesity related medical issues- o Diabetes [x] Yes on metformin, insulin, glucotrol [] Not a baseline issue o HTN: [] Yes [x] Not a baseline issue o GERD: [x] Yes, well managed with PPI [] Not a baseline issue o Hyperlipidemia: [x] Yes improved not requiring treatment [] Not a baseline issue o DAMIAN: [] Yes, [x] Not a baseline issue o Musculoskeletal issues: [x] Yes continues to be an on-going issue. Ambulates with walker. Patient Active Problem List Diagnosis Code ??? [...] Review of Systems Constitutional: energy level is stable, occasional restless leg, no pica, stable hair thinning, Neuro: + diabetic neuropathy- baseline issue- continues to progress. + memory loss- no acute changes (attributes to aging). CV: no chest pain or palpitations. Pulm: denies SOB or cough. GI: denies bloating, abdominal pain, nausea, vomiting. No diarrhea. Sometimes struggling with constipation (follows bowel regimen re: neuropathy of bowel and bladder). SALES OPERATIONS: post menopausal. Skin: + redundant skin. Skin fold rashes as well as psoriatic flares. Follows with dermatology. Well managed, denies concerns today. Health Habits: Tobacco/Nicotine use: None. ETOH use: None. No NSAID use. Dietary history/ exericse/ activity level: See dietitian note from today's visit for complete dietary evaluation. Meds and Allergies reviewed. Complications summary: Early Prolonged hospital stay. Admitted to [facility] on 01/24/16 with nausea and vomiting, failure to progress diet. Transfer to [facility] on 01/25/16 Late none Pre-op 11/03/15 Wt (lbs) 247 BMI 43.7 WT visit #2 249 HT:63 Introductory meeting date: 07/26/14 Post-op Visit date Wt (lbs) BMI %EBW lost 03/23/16 216 38.2 26.1 07/05/16 189 33.4 55 04/06/17 177 31.4 66 02/12/18 175 31 68 02/05/19 184 32.4 60 10/06/20 185 ~32.5 ~60 10/05/21 108-182 (reported) - 61% Recent labs - May, reviewed. No results found for this or any previous visit (from the past 72 hour(s)). Assessment 55 y.o. female who is 5 yrs s/p Janeth-en-Y gastric bypass with 61% of excess body weight lost and stable weight for several years. Plan: ??? S/p bariatric surgery: o Doing well from a bariatric surgery perspective. Reassured patient that weight loss is in the expected window s/p bariatric surgery. Discussed dietary considerations and strategies for continued success . Reviewed importance of meeting nutritional/protein/fluid requirements, tracking food and food choices, pairing carbs with protein, being careful to avoid eating too fast, eating too much, drinking with meals, or not chewing well enough. Encouraged protein intake to help with returning hunger. Discussed mechanism of action (ie Grehlin and outlet). ??? Discussed risks associated with alcohol intake after bariatric surgery (increased risk of alcohol misuse/abuse, increased risk of ulcers, empty calories). o Patient has met with geek squad manager today, please see note for additional details/dietary evaluation. ??? Obesity related co-morbidities: o Improved/stable overall, patient to continue to follow with PCP/specialist. ??? Risk for vitamin deficiencies: o Reviewed recent lab results. No acute nutritional deficiencies. o Vit D supplementation per Dr. Reinoso. Encouraged patient to follow up as planned/recommended. o Reviewed recommended vitamin/mineral supplements- See RD note for additional details. o Pt reminded that a bone mineral density scan (DEXA) is recommended every 2 years after bariatric surgery. Recommended f/u with primary care provider to schedule baseline screen. RTC in 1 year for next BSP follow up visit, [...] If labwork is done by the primary animal care specialist: please send a copy to the Bariatric Surgery Program, General Surgery Clinic, [facility], or fax [phone] documented in this encounter Plan of Treatment Upcoming Encounters Date Type Department Care Team (Late st Contact Info) Description 02/19/2025 9:00 AM EDT TH Visit (TeleHealth) [place] [address] Wyatt Higgins MD [facility] [place] [address] documented as of this encounter Visit Diagnoses Diagnosis Status post bariatric surgery Bariatric surgery status Intestinal malabsorption, unspecified type documented in this encounter Care Teams Fifth Hand Relationship Specialty Start Date End Date Ruth Munoz, SHRINK PIT OPERATOR [address] [place] [address] PCP - General Family Medicine 02/05/19 documented as of this encounter
--- OUTSIDE RECORDS SUMMARY | 2024-05-15 11:07 | XMS_ITS | Encounter Summary ---
[place] [address] Care Team Providers Care Optimization Specialist Name Role Phone Ruth Munoz LARRY Primary Care Provider + Reason for Visit * Reason Comments Medication Management Encounter Details Date Type Department Care Team (Late st Contact Info) Description 01/18/2022 Specialty [place] [address] Sravanthi Cardoza RPH Social History Tobacco Use [...] Progress Notes * Sravanthi Cardoza RPH - 01/18/2022 1:55 PM EDT Clinical Management Plan: Adherence Specialty Pharmacy Consultation; Sravanthi Cardoza RPH Comprehensive Medication Management (CMM) Martha Benoit [facility] has made numerous unsuccessful attempts to contact patient for refill of Cosentyx. Clinic is being notified due to the potential for a gap in treatment as outlined below. Medication Regimen: Cosentyx 150mg/mL Inject 300mg SQ every 28 days Last fill date/quantity: 10/18/21 (2ml) Last patient reported due date: 10/23/21 Thus, would have needed refill for dose due on 11/20/21. Patient says she has 1 set of 2 pens on hand. Based on current care plan, patient may have missed 3 doses on 11/20/21, 12/18/21, and 01/15/22 . [facility] will continue to reach out to patient to provide refill of medication at this time. If patient contacts office, please relay need to contact the [facility] at . Sravanthi Cardoza RPH 01/18/22 1:55 PM documented in this encounter Plan of Treatment Upcoming Encounters Date Type Department Care Team (Late st Contact Info) Description 02/19/2025 9:00 AM EDT TH Visit (TeleHealth) [place] [address] Wyatt Higgins MD [facility] [place] [address] documented as of this encounter Visit Diagnoses Not on filedocumented in this encounter Care Teams Optimization Specialist Relationship Specialty Start Date End Date Ruth Munoz, LARRY [address] [place] [address] PCP - General Family Medicine 02/05/19 documented as of this encounter
--- OUTSIDE RECORDS SUMMARY | 2024-05-15 11:07 | XMS_ITS | Encounter Summary ---
Author Organization [facility] [place] [address] Care Team Providers Care Wallpaper Installer Name Role Phone MunozRuth jerome Lilibeth JUAREZ Primary Care Provider + Encounter Details Date Type Department Care Team (Late st Contact Info) Description 04/05/2022 [place] [phone] Wyatt Higgins MD [facility] [place] [address] Type 2 diabetes mellitus with diabetic neuropathy, unspecified whether skilled nursing insulin use Social History Tobacco Use Types [...] TH Visit (TeleHealth) [place] [address] Wyatt Higgins MD [facility] [place] [address] Scheduled Orders Name Type Priority Associated Diagnoses Orde r Schedule Hemoglobin A1c Lab Routine Type 2 diabetes mellitus with diabetic neuropathy, unspecified whether ocean transportation intermediary insulin use Expected: 05/05/2022 (Approximate), Expires: 11/04/2022 documented as of this encounter Visit Diagnoses Diagnosis Type 2 diabetes mellitus with diabetic neuropathy, unspecified whether ocean transportation intermediary insulin use documented in this encounter Care Teams Wallpaper Installer Relationship Specialty Start Date End Date Ruth Munoz APRN [address] [place] [address] PCP - General Family Medicine 02/05/19 documented as of this encounter
--- OUTSIDE RECORDS SUMMARY | 2024-05-15 11:07 | XMS_ITS | Encounter Summary ---
Author Organization [facility] [place] [address] Care Team Providers Care Director Business Management Name Role Phone Ruth Munoz Lilibeth JUAREZ Primary Care Provider + Encounter Details Date Type Department Care Team (Late st Contact Info) Description 03/24/2022 Telephone Dermatology at [address] [address] Lydia Funes RN Social History [...] Encounter - Lydia Funes RN - 03/24/2022 1:36 PM EDT Patient left a message this morning at 1104 stating her sore throat is coming back and not sure what she should do. Pt was Dx with Step throat by her PCP on 03/11/2022. Discussed with Dr. Gilliland and called patient back. Patient has been advised to contact her PCP reguarding her sore throat. Also informed patient that Dr. Gilliland did not want her to be placed on penicillin in case there is a penicillin allergic reaction per note 03/17/2022. Informed patient that Dr. Gilliland approved refills for Triamcinolone cream and Halog topical solution for her and [facility] [place] [facility]. Patient stated that she understood and stated no questions or concerns at this time. documented in this encounter Plan of Treatment Upcoming Encounters Date Type Department Care Team (Late st Contact Info) Description 02/19/2025 9:00 AM EDT TH Visit (TeleHealth) [place] [address] Wyatt Higgins MD [facility] [place] [address] documented as of this encounter Visit Diagnoses Not on filedocumented in this encounter Care Teams Director Business Management Relationship Specialty Start Date End Date Ruth Munoz APRN [address] [place] [address] PCP - General Family Medicine 02/05/19 documented as of this encounter
--- OUTSIDE RECORDS SUMMARY | 2024-05-15 11:07 | XMS_ITS | Encounter Summary ---
Author Organization [facility] [place] [address] Care Team Providers Care Park Worker Name Role Phone Ruth Munoz LARRY Primary Care Provider + Encounter Details Date Type Department Care Team (Late st Contact Info) Description 03/24/2022 Refill Dermatology at [address] [phone] Lydia Funes, RN Social History Tobacco Use [...] AM EDT TH Visit (TeleHealth) [place] [address] Wyatt Higgins MD [facility] [place] [address] documented as of this encounter Visit Diagnoses Not on filedocumented in this encounter Care Teams Park Worker Relationship Specialty Start Date End Date Ruth Munoz, BILL OF MATERIALS CLERK [address] [place] [address] PCP - General Family Medicine 02/05/19 documented as of this encounter
--- OUTSIDE RECORDS SUMMARY | 2024-05-15 11:07 | XMS_ITS | Encounter Summary ---
[place] [address] Care Team Providers Care Supervisor Patching Name Role Phone Ruth Munoz LARRY Primary Care Provider + Reason for Visit * Reason Comments Medication Management Specialty Refill Management Encounter Details Date Type Department Care Team (Late st Contact Info) Description 09/17/2021 Specialty [place] [address] Oc Archer [facility] Social History Tobacco Use Types Packs/Day Years [...] encounter Progress Notes * Oc Archer [facility] - 09/17/2021 10:42 AM EST Clinical Management Plan: Refill Specialty [...] No Specialty Pharmacy Refill Questionnaire Refill Questionnaire 09/17/2021 What is the name of the specialty medication you are refilling? Cosentyx Are you taking any new medications? No Any new medical condition? No Any new allergies? No Any new side effects that are bothersome? No What date will you need this fill by? 09/25/2021 Adherence: Any missed doses? No Patient understands no changes to current drug regimen were made. Oc Archer RPH 09/17/21 10:44 AM documented in this encounter Plan of Treatment Upcoming Encounters Date Type Department Care Team (Late st Contact Info) Description 02/19/2025 9:00 AM EDT TH Visit (TeleHealth) [place] [address] Wyatt Higgins MD [facility] [place] [address] documented as of this encounter Visit Diagnoses Not on filedocumented in this encounter Care Teams Supervisor Patching Relationship Specialty Start Date End Date Ruth Munoz APRN [address] [place] [address] PCP - General Family Medicine 02/05/19 documented as of this encounter
--- OUTSIDE RECORDS SUMMARY | 2024-05-15 11:07 | XMS_ITS | Encounter Summary ---
[place] [address] Care Team Providers Care Pediatrics Teacher Name Role Phone Ruth Munoz LARRY Primary Care Provider + Reason for Visit * Reason Comments Medication Management Patient Education Encounter Details Date Type Department Care Team (Late st Contact Info) Description 07/16/2021 Specialty [place] [address] Nura Lozano [facility] Social History Tobacco Use Types Packs/Day Years [...] Progress Notes * Nura Lozano Aline - 07/16/2021 3:38 PM EDT Clinical Management Plan: Refill Specialty Pharmacy Consultation; Nura Lozano [facility] Comprehensive Medication Management (CMM) Martha Benoit Ms. Marthayi Benoit is a 55 y.o. (1965) female [...] No Specialty Pharmacy Refill Questionnaire Refill Questionnaire 07/16/2021 What is the name of the specialty medication you are refilling? cosentyx Are you taking any new medications? No Any new medical condition? No Any new allergies? No Any new side effects that are bothersome? No What date will you need this fill by? 07/21/2021 Adherence: Any missed doses? No Patient understands no changes to current drug regimen were made. Nura Lozano RPH 07/16/21 3:43 PM documented in this encounter Plan of Treatment Upcoming Encounters Date Type Department Care Team (Late st Contact Info) Description 02/19/2025 9:00 AM EDT TH Visit (TeleHealth) [place] [address] Wyatt Higgins MD [facility] [address] documented as of this encounter Visit Diagnoses Not on filedocumented in this encounter Care Teams Pediatrics Teacher Relationship Specialty Start Date End Date Ruth Munoz APRN [address] [place] [address] PCP - General Family Medicine 02/05/19 documented as of this encounter
--- OUTSIDE RECORDS SUMMARY | 2024-05-15 11:07 | XMS_ITS | Encounter Summary ---
[place] [address] Care Team Providers Care Repairer Art Objects Name Role Phone Ruth Munoz Lilibeth JUAREZ Primary Care Provider + Reason for Visit * Reason Onset Date Comments Medication Refill 05/13/2022 Encounter Details Date Type Department Care Team (Late st Contact Info) Description 05/13/2022 [place] [address] Romina Herbert RPH Social History Tobacco Use [...] encounter Miscellaneous Notes * Telephone Encounter - Romina Herbert RPH - 05/13/2022 2:14 PM EDT Opened in error. documented in this encounter Plan of Treatment Upcoming Encounters Date Type Department Care Team (Late st Contact Info) Description 02/19/2025 9:00 AM EDT TH Visit (TeleHealth) [place] [address] Wyatt Higgins MD [facility] [place] [address] documented as of this encounter Visit Diagnoses Not on filedocumented in this encounter Care Teams Repairer Art Objects Relationship Specialty Start Date End Date Ruth Munoz, NET PROGRAMMER [address] [place] [address] PCP - General Family Medicine 02/05/19 documented as of this encounter
--- OUTSIDE RECORDS SUMMARY | 2024-05-15 11:07 | XMS_ITS | Encounter Summary ---
[place] [address] Care Team Providers Care Presales Engineer Name Role Phone Ruth Munoz LARRY Primary Care Provider + Reason for Visit * Reason Comments Specialty Refill Management Encounter Details Date Type Department Care Team (Late st Contact Info) Description 03/09/2022 Specialty [place] [address] Sravanthi Cardoza RPH Social History Tobacco Use [...] Progress Notes * Sravanthi Cardoza RPH - 03/09/2022 2:30 PM EDT Clinical Management Plan: Refill Specialty [...] Known Allergies Medication Reconciliation Discrepancies (compared to [facility] med list) No Specialty Pharmacy Refill Questionnaire Refill Questionnaire 03/09/2022 What is the name of the specialty medication you are refilling? Cosentyx Are you taking any new medications? No Any new medical condition? No Any new allergies? No Any new side effects that are bothersome? No What date will you need this fill by? 03/12/2022 Adherence: Any missed doses? No Patient understands no changes to current drug regimen were made. Sravanthi Cardoza RPH 03/09/22 2:31 PM documented in this encounter Plan of Treatment Upcoming Encounters Date Type Department Care Team (Late st Contact Info) Description 02/19/2025 9:00 AM EDT TH Visit (TeleHealth) [place] [address] Wyatt Higgins MD [facility] [place] [address] documented as of this encounter Visit Diagnoses Not on filedocumented in this encounter Care Teams Presales Engineer Relationship Specialty Start Date End Date Ruth Munoz APRN [address] [place] [address] PCP - General Family Medicine 02/05/19 documented as of this encounter
--- OUTSIDE RECORDS SUMMARY | 2024-05-15 11:07 | XMS_ITS | Encounter Summary ---
[place] [address] Care Team Providers Care Suit Maker Name Role Phone Ruth Munoz Lilibeth JUAREZ Primary Care Provider + Reason for Visit * Reason Comments Prior Authorization Cosentyx Sensoready ( 300m 150 SOAJ ) Encounter Details Date Type Department Care Team (Late st Contact Info) Description 08/25/2021 Specialty [place] [address] Louis Baeza, [facility] Social History Tobacco Use Types [...] encounter Progress Notes * Louis Baeza - 08/25/2021 3:44 PM EDT [facility], Medication Prior Authorization Submission Patient: Martha Benoit Patient : 1965 Patient Address: [address] [facility] [address] (home) Medication Name: COSENTYX PEN 300 MG/2 PENS (150 MG/ML) SUBCUTANEOUS Medication ID: Subscriber Insurance: [place] Subscriber Insurance Comment: Fax: Physician: TERRANCE LYNN Physician Comment: Sent Via: [facility] Kessler: [id number] Ref/Case/PA#: Medication Strength Frequency Requested: Cosentyx Sensoready ( 300M 150 SOAJ ) Qty/Day Supply: 12/20 New Start: Renewal Diagnosis & ICD-10 Code: Psoriasis L40.9 Patient Notified: No Submission Notes: None Louis Baeza 08/25/21 3:51 PM * Louis Baeza - 08/25/2021 3:44 PM EDT [facility], Prior Authorization Approval Medication Name: COSENTYX PEN 300 MG/2 PENS (150 MG/ML) SUBCUTANEOUS Medication ID: Approval Dates: 08/25/2021 to 08/25/2022 Insurance requirements/notes: None Other Notes: None Case/Reference #: [id number] Approval notification Received via: Fax Copay: $3.00 Copay assistance: None Copay Notes: Insurance mandated Pharmacy: [facility] at [facility]: Yes Pharmacy staff will be reaching out to the patient to inform them of their medication's approval [facility] insurance. If applicable, a pharmacist will speak with the patient to offer our specialty pharmacy services and to arrange delivery of their medication. Louis Baeza 08/26/21 8:55 AM documented in this encounter Plan of Treatment Upcoming Encounters Date Type Department Care Team (Late st Contact Info) Description 02/19/2025 9:00 AM EDT TH Visit (TeleHealth) [place] [address] Wyatt Higgins MD [facility] [place] [address] documented as of this encounter Visit Diagnoses Not on filedocumented in this encounter Care Teams Suit Maker Relationship Specialty Start Date End Date Ruth Munoz APRN [address] [place] [address] PCP - General Family Medicine 02/05/19 documented as of this encounter
--- OUTSIDE RECORDS SUMMARY | 2024-05-15 11:07 | XMS_ITS | Encounter Summary ---
Author Organization [facility] [place] [address] Care Team Providers Care Python Consultant Name Role Phone Ruth Munoz Lilibeth JUAREZ Primary Care Provider + Reason for Visit * Reason Comments Psoriasis Encounter Details Date Type Department Care Team (Late st Contact Info) Description 05/12/2022 2:15 PM EDT Office Visit Dermatology at [address] [place] [address] Galdino Gilliland MD [address] [facility] DERMATOLOGY [place], [place] [id number] Psoriasis Social History Tobacco Use Types Packs/Day [...] Progress Notes * Galdino Gilliland MD - 05/12/2022 2:15 PM EDT Problem: 1. ??On Cosentyx since May 2020 2.?Psoriasis??on Humira from January to April 2020 with decreasing benefit 3.?History of significant psoriasis??in her?son and granddaughter 4. ??Status post 2 months of methotrexate??without significant improvement ?? Martha follows up after last being seen by me on March 17. She had developed strep pharyngitis and significant flare of her psoriasis despite being on Cosentyx. Fortunately she was able to remain on Cosentyx and have gradual improvement of her cutaneous psoriasis in the meantime. However her legs havenever cleared. She still has dusky erythematous round patches widely over the entire anterior thigh and shins. She complains of burning stinging itching sensations. Her chest and back are largely clear her arms and forearms are clear but her legs are a big problem despite advent use of the Cosentyx. Physical examination confirms dusky erythematous small patches of psoriasis widely over the thighs and shins, sparing the rest the body. Assessment plan: Psoriasis still active in lower extremities despite Cosentyx since May 2020 1. Patient has never really returned to her good level of control following the strep pharyngitis in February of this year 2. We will attempt to get prior authorization for etanercept 50 mg using the SureClick autoinjectorinject 1 pen subcutaneously every 3 to 4 days for 3 months then once weekly thereafter 3. Discontinue Cosentyx when the etanercept arrives. She has no more Cosentyx at home right now 4. Return to clinic here in 3 months for repeat check. CC: Ruth Munoz APRN documented in this encounter Plan of Treatment Upcoming Encounters Date Type Department Care Team (Late st Contact Info) Description 02/19/2025 9:00 AM EDT TH Visit (TeleHealth) [place] [address] Wyatt Higgins MD [facility] [place] [address] documented as of this encounter Visit Diagnoses Diagnosis Psoriasis Other psoriasis documented in this encounter Care Teams Python Consultant Relationship Specialty Start Date End Date Ruth Munoz APRN [address] [place] [address] PCP - General Family Medicine 02/05/19 documented as of this encounter
--- OUTSIDE RECORDS SUMMARY | 2024-05-15 11:07 | XMS_ITS | Encounter Summary ---
Author Organization [facility] Address [facility] [place] [address] Care Team Providers Care Tree Killer Name Role Phone MunozRuth jerome Lilibeth JUAREZ Primary Care Provider + Encounter Details Date Type Department Care Team (Late st Contact Info) Description 08/05/2021 7:58 AM EDT - 08/05/2021 1:04 PM EDT Hospital En[place] [address] [facility] [place] [address] Discharge Disposition: Home Social History Tobacco Use Types Packs/Day Years [...] Sign Reading Time Taken Comments Blood Pressure 119/65 08/05/2021 12:15 PM EDT Pulse 83 08/05/2021 12:00 PM EDT Temperature 36.3 ??C (97.4 ??F) 08/05/2021 11:48 AM E DT Respiratory Rate 18 08/05/2021 12:15 PM EDT Oxygen Saturation 96% 08/05/2021 12:15 PM EDT Inhaled Oxygen Concentration - - [...] to be checked. Monday-Monday Same Day Endo [phone]-[id number] Otherwise contact [phone] and ask to speak to the management internship construction project assistant Follow up care is a [place] part [...] mouth nightly. UNABLE TO FIND Med Name: [place] vitamins take one tablet by mouth twice [...] 90 tablet 3 05/31/2021 06/01/2022 Sod Phos Dickey-Sod Phos Dibasic (OsmoPrep) 1.5 gram TabletIndications:Ad enomatous [...] complication. Informed Consent signed by patient (or primary care sales representative). documented in this encounter Plan of Treatment Upcoming Encounters Date Type Department Care Team (Late st Contact Info) Description 02/19/2025 9:00 AM EDT TH Visit (TeleHealth) [place] [address] [facility] [place] [address] documented as of this encounter Procedures Procedure Name Priority Date/Time Associated Diagnosis Comments POCT GLUCOSE Routine 08/05/2021 12:05 PM EDT POCT FINGERSTICK GLUCOSE Routine 08/05/2021 12:04 PM EDT Colonoscopy, Diagnostic (44431) 08/05/2021 11:12 AM EDT screening hx of hyperplastic and tubular polyps COLONOSCOPY Routine 08/05/2021 11:09 AM EDT POCT GLUCOSE Routine 08/05/2021 10:10 AM EDT documented in this encounter Results * POCT Glucose (08/05/2021 12:05 PM EDT) POC Glucose 104 65 - 199 mg/dL [facility] Comment: Supplemental ranges: <140 mg/dL before meals <180 mg/dL all other times of the day Blood 08/05/2021 12:0 5 PM EDT 08/04/2021 12:00 PM EDT Anam Stuart MD POINT OF CARE FABIENNE T ORDERABLES [facility] [place] [address] * POCT Fingerstick Glucose (08/05/2021 12:04 PM EDT) Pathologist [facility] POC Glucose 104 60 - 199 mg/dl 08/05/2021 12:0 4 PM EDT Anam Stuart MD POINT OF CARE FABIENNE T ORDERABLES * COLONOSCOPY (08/05/2021 11:09 AM EDT) [facility] COLONOSCOPY [facility] Endoscopy Procedure Date: 08/05/2021 11:09 AM ? Patient Name: Martha Benoit ? N: [id number] ? Date of : 1965 ? Age: 55 ? Order #: [id number] ? Instrument Name: [id number] ? Procedure: ? Colonoscopy Indications: ? Screening [...] preparation was evaluated using ? the BBPS ([place] Bowel Preparation ? Scale) with scores of: [...] Ruth Munoz APRN GENERAL SURGICAL ORDERABLES [employer]OVATION * POCT Glucose (08/05/2021 10:10 AM EDT) POC Glucose 118 65 - 199 mg/dL [facility] Comment: Supplemental ranges: <140 mg/dL before meals <180 mg/dL all other times of the day Blood 08/05/2021 10:1 0 AM EDT 08/04/2021 12:00 PM EDT Aanm Stuart MD POINT OF CARE FABIENNE T ORDERABLES Performing Organization Address City/[facility]/ZIP Co de Phone Number [facility] [place] [address] documented in this encounter Visit Diagnoses Not [...] CRNA) documented in this encounter Care Teams Tree Killer Relationship Specialty Start Date End Date Ruth Munoz, MEDICAL OPERATIONS SUPERVISOR [address] [place] [address] PCP - General Family Medicine 02/05/19 documented as of this encounter
--- OUTSIDE RECORDS SUMMARY | 2024-05-15 11:07 | XMS_ITS | Encounter Summary ---
Author Organization [facility] [place] [address] Care Team Providers Care Resident Care Associate Name Role Phone Ruth Munoz LARRY Primary Care Provider + Encounter Details Date Type Department Care Team (Late st Contact Info) Description 03/24/2022 Refill Dermatology at [address] [phone] Lydia Funes, RN Social History Tobacco Use [...] TH Visit (TeleHealth) [place] [address] Wyatt Higgins MD [facility] [place] [address] documented as of this encounter Visit Diagnoses Not on filedocumented in this encounter Care Teams Resident Care Associate Relationship Specialty Start Date End Date Ruth Munoz, FRUIT SPRAYER [address] [place] [address] PCP - General Family Medicine 02/05/19 documented as of this encounter
--- OUTSIDE RECORDS SUMMARY | 2024-05-15 11:07 | XMS_ITS | Encounter Summary ---
Author Organization [facility] [place] [address] Care Team Providers Care Digital Media Manager Name Role Phone MunozRuth jerome Lilibeth JUAREZ Primary Care Provider + Encounter Details Date Type Department Care Team (Late st Contact Info) Description 08/27/2021 Refill Dermatology at [address] [address] Benita Salazar LPN Social History [...] Telephone Encounter - Benita Salazar LPN - 08/27/2021 8:35 AM EDT Patient reports she continues to have breakthrough patches of psoriasis. Requested a pound of TAC cream and TAC ointment. documented in this encounter Plan of Treatment Upcoming Encounters Date Type Department Care Team (Late st Contact Info) Description 02/19/2025 9:00 AM EDT TH Visit (TeleHealth) [place] [address] Wyatt Higgins MD [facility] [place] [address] documented as of this encounter Visit Diagnoses Not on filedocumented in this encounter Care Teams Digital Media Manager Relationship Specialty Start Date End Date Ruth Munoz APRN [address] [place] [address] PCP - General Family Medicine 02/05/19 documented as of this encounter
--- OUTSIDE RECORDS SUMMARY | 2024-05-15 11:07 | XMS_ITS | Encounter Summary ---
[place] [address] Care Team Providers Care Hspt Tutor Name Role Phone Ruth Munoz LARRY Primary Care Provider + Reason for Visit * Reason Comments Prior Authorization Cosentyx Sensoready (300mg) 150mg/ml pens Encounter Details Date Type Department Care Team (Late st Contact Info) Description 05/18/2022 Specialty [place] [address] Gertrudis Siddiqi, BALE BREAKER OPERATOR Social History Tobacco Use Types Packs/Day Years [...] encounter Progress Notes * Gertrudis Siddiqi - 05/18/2022 4:40 PM EDT [facility], Medication Prior Authorization Submission Patient: Martha Benoit Patient : 1965 Patient Address: [address] [facility] [address] (home) Medication Name: COSENTYX PEN 300 MG/2 PENS (150 MG/ML) SUBCUTANEOUS Medication ID: [id number] Subscriber Insurance: [place] Medicaid Subscriber Insurance Comment: Fax: Physician: TERRANCE LYNN Physician Comment: Sent Via: [facility] Kessler: [id number] Ref/Case/PA#: Medication Strength Frequency Requested: Cosentyx 300mg/2ml (150mg/ml), INJECT THE CONTENTS OF TWO PENS (300 MG) SUBCUTANEOUSLY ONCE EVERY 28 DAYS Qty/Day Supply: 12/20 New Start: Renewal Diagnosis & ICD-10 Code: L40.9 Patient Notified: No Submission Notes: None Gertrudis Siddiqi 05/18/22 4:44 PM * Gertrudis Siddiqi - 05/18/2022 4:40 PM EDT [facility]- Specialty Pharmacy, Prior Authorization Approval Medication Name: COSENTYX PEN 300 MG/2 PENS (150 MG/ML) SUBCUTANEOUS Medication ID: [id number] Approval Dates: 05/19/2022 to 06/19/2022 Insurance requirements/notes: None Other Notes: None Case/Reference #: [id number] Approval notification Received via: Fax Copay: 3.00 Copay assistance: Copay Notes: Patient has $3.00 co-pay Insurance mandated Pharmacy: [facility]: Yes Pharmacy staff will be reaching out to the patient to inform them of their medication's [facility]. If applicable, a pharmacist will speak with the patient to offer our specialty pharmacy services and to arrange delivery of their medication. Gertrudis Siddiqi 05/19/22 11:34 AM documented in this encounter Plan of Treatment Upcoming Encounters Date Type Department Care Team (Late st Contact Info) Description 02/19/2025 9:00 AM EDT TH Visit (TeleHealth) [place] [address] Wyatt Higgins MD [facility] [place] [address] documented as of this encounter Visit Diagnoses Not on filedocumented in this encounter Care Teams Hspt Tutor Relationship Specialty Start Date End Date Ruth Munoz, LARRY [address] [place] [address] PCP - General Family Medicine 02/05/19 documented as of this encounter
--- OUTSIDE RECORDS SUMMARY | 2024-05-15 11:08 | XMS_ITS | Encounter Summary ---
Author Organization [facility] [place] [address] Care Team Providers Care Cocktail Server Name Role Phone Ruth Munoz Lilibeth JUAREZ Primary Care Provider + Reason for Visit * Reason Onset Date Comments Medication Refill 2020 Encounter Details Date Type Department Care Team (Late st Contact Info) Description 2020 [place] [phone] Santos Mccloud, RN Social History Tobacco Use Types Packs/Day [...] AM EDT TH Visit (TeleHealth) [place] [address] Wyatt Higgins MD [facility] [place] [address] documented as of this encounter Visit Diagnoses Not on filedocumented in this encounter Care Teams Cocktail Server Relationship Specialty Start Date End Date Ruth Munoz APRN [address] [place] [address] PCP - General Family Medicine 02/05/19 documented as of this encounter
--- OUTSIDE RECORDS SUMMARY | 2024-05-15 11:08 | XMS_ITS | Encounter Summary ---
Author Organization [facility] [place] [address] Care Team Providers Care Law Secretary Name Role Phone MunozRuth jerome Lilibeth JUAREZ Primary Care Provider + Encounter Details Date Type Department Care Team (Late st Contact Info) Description 05/18/2021 Orders [place] [address] Anam Stuart MD [facility] [place] [address] Adenomatous polyp of colon, unspecified part of colon Social History Tobacco Use Types Packs/Day Years [...] AM EDT TH Visit (TeleHealth) [place] [address] Wyatt Higgins MD [facility] [place] [address] documented as of this encounter Visit Diagnoses Diagnosis Adenomatous polyp of colon, unspecified part of colon documented in this encounter Care Teams Law Secretary Relationship Specialty Start Date End Date Ruth Munoz APRN [address] [place] [address] PCP - General Family Medicine 02/05/19 documented as of this encounter
--- OUTSIDE RECORDS SUMMARY | 2024-05-15 11:08 | XMS_ITS | Encounter Summary ---
[place] [address] Care Team Providers Care Drug Abuse Counselor Name Role Phone Ruth Munoz LARRY Primary Care Provider + Reason for Visit * Reason Comments Specialty Refill Management Encounter Details Date Type Department Care Team (Late st Contact Info) Description 01/22/2021 Specialty [place] [address] Sravanthi Cardoza RPH Social History Tobacco Use [...] Progress Notes * Sravanthi Cardoza RPH - 01/22/2021 11:51 AM EDT Clinical Management Plan: Refill Specialty [...] Known Allergies Medication Reconciliation Discrepancies (compared to [facility] med list) No Specialty Pharmacy Refill Questionnaire Refill Questionnaire 01/22/2021 What is the name of the specialty medication you are refilling? Cosentyx Are you taking any new medications? No Any new medical condition? No Any new allergies? No Any new side effects that are bothersome? No Adherence: Any missed doses? No Patient understands no changes to current drug regimen were made.. Sravanthi Cardoza RPH 01/22/21 11:52 AM documented in this encounter Plan of Treatment Upcoming Encounters Date Type Department Care Team (Late st Contact Info) Description 02/19/2025 9:00 AM EDT TH Visit (TeleHealth) [place] [address] Wyatt Higgins MD [facility] [place] [address] documented as of this encounter Visit Diagnoses Not on filedocumented in this encounter Care Teams Drug Abuse Counselor Relationship Specialty Start Date End Date Ruth Munoz APRN [address] [place] [address] PCP - General Family Medicine 02/05/19 documented as of this encounter
--- OUTSIDE RECORDS SUMMARY | 2024-05-15 11:08 | XMS_ITS | Encounter Summary ---
Author Organization [facility] [place] [address] Care Team Providers Care Roller Mill Operator Name Role Phone Ruth Munoz LARRY Primary Care Provider + Reason for Visit * Reason Onset Date Comments Other 08/24/2020 Encounter Details Date Type Department Care Team (Late st Contact Info) Description 08/24/2020 [place] [address] Wyatt Higgins MD [facility] [place] [address] Other Social History Tobacco Use Types Packs/Day [...] encounter Miscellaneous Notes * Telephone Encounter - Leslie Aguilar - 10/01/2020 5:59 PM EST We now have all images. Patient needs follow up with Dr. Higgins. * Telephone Encounter - Leslie Aguilar - 09/23/2020 2:45 PM EST Called and requested the imaging. Left message for patient to schedule follow up with Dr. Higgins. * Telephone Encounter - Toshia Elizabeth, RN - 08/24/2020 10:09 AM EST Will forward request to scheduling secretaries to arrange images. Reports are in chart * Telephone Encounter - Kelly Lezama - 08/24/2020 9:50 AM EST Call Center / [place] Message - General Issue Call Provider patient sees in Clinic: Gisela Caller and relationship (if other than patient-full name): self Call back number: [phone] Ok to leave a message: yes Reason for call: Pt states she had an MRI on 05/19/20 at [facility] ordered by a Dr. Vazquez and she also had labs done at [facility] more recently. She has requested both locations send [facility] the results. However they are not currently in the pt chart, she is asking if [facility] can reach out for the results to [facility] and [facility]. Martha was last seen 09/2019 and would like to set up a telehealth appt once the MRI and lab resultshave been received by neuro. Disposition of Call (choose one and remove others): ??? Red Arrow Message Reason red arrow Message: n ??? Routine Message sent to the Nurse: y ??? Routine message sent to Bagging Machine Operator: n documented in this encounter Plan of Treatment Upcoming Encounters Date Type Department Care Team (Late st Contact Info) Description 02/19/2025 9:00 AM EDT TH Visit (TeleHealth) [place] [address] Wyatt Higgins MD [facility] [place] [address] documented as of this encounter Visit Diagnoses Not on filedocumented in this encounter Care Teams Roller Mill Operator Relationship Specialty Start Date End Date Ruth Munoz APRN [address] [place] [address] PCP - General Family Medicine 02/05/19 documented as of this encounter
--- OUTSIDE RECORDS SUMMARY | 2024-05-15 11:08 | XMS_ITS | Encounter Summary ---
Author Organization [facility] [place] [address] Care Team Providers Care Mainstreaming Facilitator Name Role Phone Ruth Munoz APRN Primary Care Provider + Reason for Visit * Consultation (Routine) - Closed Specialty Diagnoses / Procedures Referred By Patricio monsivais Referred To Contact Neurology Diagnoses Hereditary and idiopathic neuropathy, unspecified Myoneural disorder, unspecified f/up consult with Ruth Oviedo APRN [address] [place] [address] [facility] [address] [place] [address] Referral ID Status Reason Start Date Expiration Date V isits Requested Visits Authorized [id number] Closed Consult, [facility] PCP Updated and/or Approved 03/10/2021 09/10/2021 6 6 Encounter Details Date Type Department Care Team (Latest Contact Info) Description 05/19/2021 8:30 AM EDT TH Visit (TeleHealth) [place] [address] Wyatt Higgins MD [facility] [place] [address] Type 2 diabetes mellitus with diabetic neuropathy, with long-term current use of insulin Social History Tobacco Use Types Packs/Day Years [...] Progress Notes * Wyatt Higgins MD - 05/19/2021 8:30 AM EDT I had a scheduled telehealth visit with Martha Benoit today. Unfortunately she forgot to get on her computer and we ended up having the visit over the telephone. For the last year she has had some leftear pain which was worked up at [facility]. I was unable to find any information on care everywhere. In October of this year she started to have decreased urine flow and she went to see a urologist at [facility]. Apparently there is some urinary hesitancy and the urologist told her to urinate on a scheduled basis every 4 hours. More recently she has had some problems with bowel movements but denies any significant constipation. She has problems pushing. Have not seen a recent hemoglobin A1c but she does have a follow-up with endocrinology here in about a week and a half. Her present weight is about 180. She has a history of bariatric surgery and weight is much is 250 pounds. She has had diabetes since [...] there are problems with getting it scheduled. I was unable to examine her today but her mental status appeared normal. I believe she could have some degree of autonomic neuropathy from her diabetes. 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 Her prior spinal fluid was normal. Genetic testing showed a variant of unclear significance in regards to her neuropathy. She did have a sister who in her late 30s with possible neuropathy. Her sister was also diabetic. I will try to follow-up with Martha in about 9 months time and she is to contact me in the interim with any questions or issues. documented in this encounter Plan of Treatment Upcoming Encounters Date Type Department Care Team (Late st Contact Info) Description 02/19/2025 9:00 AM EDT TH Visit (TeleHealth) [place] [address] Wyatt Higgins MD [facility] [address] [place] [address] documented as of this encounter Visit Diagnoses Diagnosis Type 2 diabetes mellitus with diabetic neuropathy, with long-term current use of insulin documented in this encounter Care Teams Mainstreaming Facilitator Relationship Specialty Start Date End Date Ruth Munoz APRN [address] [place] [address] PCP - General Family Medicine 02/05/19 documented as of this encounter
--- OUTSIDE RECORDS SUMMARY | 2024-05-15 11:08 | XMS_ITS | Encounter Summary ---
Author Organization [facility] [place] [address] Care Team Providers Care Tip Inserter Name Role Phone MunozRuth jerome Lilibeth JUAREZ Primary Care Provider + Encounter Details Date Type Department Care Team (Late st Contact Info) Description 11/30/2020 Telephone [place] [phone] Judith Reinoso MD [facility] [place] [address] Social History Tobacco Use Types Packs/Day Years [...] encounter Miscellaneous Notes * Telephone Encounter - Abril Walker - 11/30/2020 8:35 AM EST Spoke with radha I schedule her for her 6 month follow up on 05/31 at 10am. She stated if she needs it changed she will call to have it switched to telehealth if she can not have one of her kids bring her. documented in this encounter Plan of Treatment Upcoming Encounters Date Type Department Care Team (Late st Contact Info) Description 02/19/2025 9:00 AM EDT TH Visit (TeleHealth) [place] [address] Wyatt Higgins MD [facility] [place] [address] documented as of this encounter Visit Diagnoses Not on filedocumented in this encounter Care Teams Tip Inserter Relationship Specialty Start Date End Date Ruth Munoz, LARRY [address] [place] [address] PCP - General Family Medicine 02/05/19 documented as of this encounter
--- OUTSIDE RECORDS SUMMARY | 2024-05-15 11:08 | XMS_ITS | Encounter Summary ---
[place] [address] Care Team Providers Care Route Relief Driver Name Role Phone Ruth Munoz LARRY Primary Care Provider + Reason for Visit * Reason Comments Medication Management Patient Education Encounter Details Date Type Department Care Team (Late st Contact Info) Description 03/12/2021 Specialty [place] [address] Nura Lozano [facility] Social History Tobacco Use Types Packs/Day [...] this encounter Progress Notes * Nura Lozano [facility] - 03/12/2021 3:38 PM EDT Clinical Management Plan: Refill Specialty Pharmacy Consultation; Nura Lozano [facility] Comprehensive Medication Management (CMM) Martha Benoit [...] Known Allergies Medication Reconciliation Discrepancies (compared to [facility] med list) No Specialty Pharmacy Refill Questionnaire Refill Questionnaire 03/12/2021 What is the name of the specialty medication you are refilling? cosentyx Are you taking any new medications? No Any new medical condition? No Any new allergies? No Any new side effects that are bothersome? No What date will you need this fill by? 03/19/2021 Adherence: Any missed doses? No Patient understands no changes to current drug regimen were made.. Nura Lozano RPH 03/12/21 3:41 PM documented in this encounter Plan of Treatment Upcoming Encounters Date Type Department Care Team (Late st Contact Info) Description 02/19/2025 9:00 AM EDT TH Visit (TeleHealth) [place] [address] Wyatt Higgins MD [facility] [address] documented as of this encounter Visit Diagnoses Not on filedocumented in this encounter Care Teams Route Relief Driver Relationship Specialty Start Date End Date Ruth Munoz APRN [address] [place] [address] PCP - General Family Medicine 02/05/19 documented as of this encounter
--- OUTSIDE RECORDS SUMMARY | 2024-05-15 11:08 | XMS_ITS | Encounter Summary ---
[place] [address] Care Team Providers Care Yarding Supervisor Name Role Phone Ruth Munoz APRN Primary Care Provider + Encounter Details Date Type Department Care Team (Late st Contact Info) Description 05/13/2021 Telephone [place] [phone] Brittnee Cooper Social History Tobacco Use Types Packs/Day Years [...] Miscellaneous Notes * Telephone Encounter - Brittnee Cooper - 05/13/2021 12:39 PM EDT Martha Benoit [id number] Diagnosis/Indication: screening hx of hyperplastic and tubular polyps 1. Have you ever had a/an Colonoscopy before? Yes: Date [facility] about 3 years ago If yes, did you have any problems with the procedure? No What type of sedation was used: Other: Unsure 2. Do you take any blood thinners or have you been diagnosed with a bleeding disorder that increases your risk of bleeding with procedures? No 3. Do you have a Pacemaker or Defibrillator device? No 4. Are you a diabetic? Yes: Controlled by diet or medication? Medication 5. Do you have any Allergies to Eggs, Latex or Medications? No 6. Do you take any Oral Iron Supplements (Including multi-vitamins)? Yes (Multivitamin) 7. Do you have a history of three or more abdominal surgeries? No 8. Have you had a problem with sedation or anesthesia? No 9. Do you use a c-pap machine or oxygen tank? Neither 10. Do you take prescription narcotic pain medications, including suboxone or methodone? Yes Oxy 11. Do you have a preference regarding the gender of your provider? No Preference 12. Is there any other information you would like to us to note for the provider and nursing team who will perform your case? No 13. Say to patient: You must have a responsible democrat who will drive you to your procedure, stay [place] for the entire duration of your procedure, and drive you home from your procedure? *Please Verify the height and weight, and adjust if height and/or weight have changed* Estimated body mass index is 31.71 kg/m?? as calculated from the following: Height as of 11/27/20: 160 cm (5' 3). Weight as of 11/27/20: 81.2 kg (179 lb). Age:55 y.o. documented in this encounter Plan of Treatment Upcoming Encounters Date Type Department Care Team (Late st Contact Info) Description 02/19/2025 9:00 AM EDT TH Visit (TeleHealth) [place] [address] Wyatt Higgins MD [facility] [address] documented as of this encounter Visit Diagnoses Not on filedocumented in this encounter Care Teams Yarding Supervisor Relationship Specialty Start Date End Date Ruth Munoz, RECEIVER STOCKER [address] [place] [address] PCP - General Family Medicine 02/05/19 documented as of this encounter
--- OUTSIDE RECORDS SUMMARY | 2024-05-15 11:08 | XMS_ITS | Encounter Summary ---
Author Organization [facility] [place] [address] Care Team Providers Care Medicinal Plant Picker Name Role Phone MunozRuth jerome Lilibeth JUAREZ Primary Care Provider + Reason for Visit * Reason Comments Psoriasis Encounter Details Date Type Department Care Team (Late st Contact Info) Description 05/12/2020 9:45 AM EDT Office Visit Dermatology at [address] [place] [id number] Galdino Gilliland MD [address] [place] [address] [place] [address] Psoriasis Social History Tobacco Use Types Packs/Day [...] Progress Notes * Galdino Gilliland MD - 05/12/2020 9:45 AM EDT Problem: 1. ??Psoriasis, status post 3 months of Humira 40 mg / 0.4 mL citrate free pens 2. ??History of significant psoriasis in her son and granddaughter 3. ??Status post 2 months of methotrexate without significant improvement Martha follows up for a 3-month check after starting Humira back in January for her psoriasis. Unfortunately after some initial improvement, she has not seen improvement beyond that in fact things are getting worse. Physical examination reveals small papules and small plaques of psoriasis widely of her arms and legs. There are a few areas where moderate sized patches and plaques of cleared but she is getting many new sites today. Assessment and plan: Psoriasis worsening on Humira citrate free usually utilizing the pen 1. We will check to see which other Biologics are formulary for her. Discontinue Humira 2. We will then prescribe a new biologic to start 1 see back in 3 months time 3. Patient is understandably frustrated that this did not work, and thinks she will never get her skin clear. I tried to tell her that chances are very good that we can see major improvement still inher psoriasis. 4. Return to clinic in 3 months for repeat check Cc: Ruth Munoz APRN documented in this encounter Plan of Treatment Upcoming Encounters Date Type Department Care Team (Late st Contact Info) Description 02/19/2025 9:00 AM EDT TH Visit (TeleHealth) [place] [address] Wyatt Higgins MD [facility] [place] [address] documented as of this encounter Visit Diagnoses Diagnosis Psoriasis Other psoriasis documented in this encounter Care Teams Medicinal Plant Picker Relationship Specialty Start Date End Date Ruth Munoz APRN [address] [place] [address] PCP - General Family Medicine 02/05/19 documented as of this encounter
--- OUTSIDE RECORDS SUMMARY | 2024-05-15 11:08 | XMS_ITS | Encounter Summary ---
Author Organization [facility] [place] [address] Care Team Providers Care Counting Machine Operator Name Role Phone Ruth Munoz [facility] Primary Care Provider + Encounter Details Date Type Department Care Team (Late st Contact Info) Description 05/24/2021 Orders [place] [phone] Randee López SERVICE COORDINATOR [facility] [place] [address] Status post bariatric surgery; Intestinal malabsorption, unspecified type; Disorder of iron metabolism Social History Tobacco [...] AM EDT TH Visit (TeleHealth) [place] [address] Wyatt Higgins MD [facility] [place] [address] documented as of this encounter Results * PTH (05/31/2021 8:48 AM EDT) PTH 50 15 - 65 pg/mL [facility] Blood 05/31/2021 8:48 AM EDT 05/31/2021 8:54 AM EDT Narrative Resulting Agency Comment Spec In Lab Randee López APRN CHEMISTRY ORDERA BLES Performing Organization Address City/[facility]/ZIP Co de Phone Number [facility] [place] [address] * Folate, serum (05/31/2021 8:48 AM EDT) Folate Lvl >20.0 4.8 - 24.2 ng/mL [facility] Blood 05/31/2021 8:48 AM EDT 05/31/2021 8:54 AM EDT Narrative Resulting Agency Comment Spec In Lab Randee López APRN CHEMISTRY ORDERA BLES [facility] [place] [place] [address] documented in this encounter Visit Diagnoses Diagnosis Status post bariatric surgery Bariatric surgery status Intestinal malabsorption, unspecified type Disorder of iron metabolism Other disorders of iron metabolism documented in this encounter Care Teams Counting Machine Operator Relationship Specialty Start Date End Date Ruth Munoz APRN [address] [place] [address] PCP - General Family Medicine 02/05/19 documented as of this encounter
--- OUTSIDE RECORDS SUMMARY | 2024-05-15 11:08 | XMS_ITS | Encounter Summary ---
[place] [address] Care Team Providers Care Plaster Model And Mold Maker Name Role Phone Ruth Munoz Lilibeth JUAREZ Primary Care Provider + Reason for Visit * Reason Comments Medication Management Encounter Details Date Type Department Care Team (Late st Contact Info) Description 05/14/2020 Specialty Pharmacy [place] [address] Sravanthi Cardoza RPH Social History Tobacco Use [...] Progress Notes * Sravanthi Cardoza RPH - 05/14/2020 1:24 PM EDT Specialty Pharmacy Consultation; Sravanthi Cardoza RPH Comprehensive Medication Management (CMM): Specialty Consult, Opt Out Martha Benoit Diagnosis: Psoriasis Therapy Start Date: TBA (new start) Contact in person or via telephone:telephone Martha A Cy is a 54 y.o. (1965) female who was contacted in regard to specialty medication. Spoke with patient regarding Cosentyx. A review of the medication therapy was performed. The medication was filled as scheduled, and all medication related questions and concerns were addressed. The specialty pharmacy staff will follow up with the patient 5-7 days prior to next refill. Is the patient willing to proceed with the Clinical Assessment? No Summary and Recommendations: Spoke to patient on starting Cosentyx. Patient declined all specialty consultation but would still like refill reminders. We discussed instructions for the loading dose and administration. Patient confirmed understanding. Patient does not have any questions or concerns at this time. She confirms hav ing our contact information should she have questions or concerns going forward. Economic Assessment: Patient is agreeable to medication copay: Yes Copay Amount: $3.00 Day Supply: 28 Date Needed: TBA (new start) Therapy Assessment: Appropriate Therapy: Yes Current Medication Dosing/Route/Frequency: Cosentyx 150mg/ml Inject 300mg under the skin once weekly for 5 doses, then 300mg every 4 weeks thereafter Additional equipment/supplies required: no Care Plan Reviewed and Approved by Pharmacist : Yes Medications Reviewed: No Medications reconciled: No Allergies Reviewed:No Allergies reconciled: No Pharmacist follow-up needed: Yes Informed patient of specialty pharmacy services: Yes -Patient will be provided with welcome packet: Yes Date to be provided: 09/08/18 Delivery Method: mail -Patient returned signed Rights & Responsibilities: Yes Date to be provided: 02/17/2020 Delivery Method: mail -Patient is aware a licensed pharmacist is [...] review and follow up. Sravanthi Cardoza RPH 05/14/20 1:34 PM documented in this encounter Plan of Treatment Upcoming Encounters Date Type Department Care Team ([facility] Contact Info) Description 02/19/2025 9:00 AM EDT TH Visit (TeleHealth) [place] [address] Wyatt Higgins MD [facility] [address] [place] [address] documented as of this encounter Visit Diagnoses Not on filedocumented in this encounter Care Teams Plaster Model And Mold Maker Relationship Specialty Start Date End Date Ruth Munoz APRN [address] [place] [address] PCP - General Family Medicine 02/05/19 documented as of this encounter
--- OUTSIDE RECORDS SUMMARY | 2024-05-15 11:08 | XMS_ITS | Encounter Summary ---
Author Organization [facility] [place] [address] Care Team Providers Care Tax Accounting Assistant Name Role Phone Ruth Munoz Lilibeth JUAREZ Primary Care Provider + Reason for Visit * Reason Comments Psoriasis Encounter Details Date Type Department Care Team (Late st Contact Info) Description 03/08/2021 11:00 AM EDT Office Visit Dermatology at [address] [place] [phone] Galdino Gilliland MD [address] [facility] [place] [address] Psoriasis Social History Tobacco Use Types Packs/Day [...] Progress Notes * Galdino Gilliland MD - 03/08/2021 11:00 AM EDT Problem: 1. On Cosentyx since May 2020 2. ??Psoriasis on Humira from January to April 2020 with decreasing benefit 3. ??History of significant psoriasis??in her?son and granddaughter 4. ??Status post 2 months of methotrexate??without significant improvement Martha follows up and states that the Cosentyx does not seem to be working as well as it once did. She is noticing new spots on her legs. She has ongoing arthritis. She does not feel the Cosentyx is doing anymore for that then did the Humira before it. Physical examination reveals a pleasant 55-year-old woman who has papules of psoriasis on her knees, but no large plaques. The elbows are clear. She has a few papules also on the abdomen. These are guttate size. She does not have any significant plaque disease today. Assessment and plan: Psoriasis, slight worsening on Cosentyx but still reasonably well controlled. 1. Continue Cosentyx injecting 2 of the 150 mg pens once monthly. Dispense 2 pens with 5 refills. 2. Patient's current formulary includes Enbrel, Humira and Cosentyx. She has never been on Enbrel. 3. Return to clinic in 6 months for repeat check. CC: Ruth Munoz OXYGEN EQUIPMENT PREPARER documented in this encounter Miscellaneous Notes * Addendum Note - Benita Salazar LPN - 03/08/2021 11:00 AM EDTAddended by: BENITA SALAZAR on: 03/17/2021 12:37 PM Modules accepted: Orders documented in this encounter Plan of Treatment Upcoming Encounters Date Type Department Care Team (Late st Contact Info) Description 02/19/2025 9:00 AM EDT TH Visit (TeleHealth) [place] [address] Wyatt Higgins MD [facility] [place] [address] documented as of this encounter Visit Diagnoses Diagnosis Psoriasis Other psoriasis documented in this encounter Care Teams Tax Accounting Assistant Relationship Specialty Start Date End Date Ruth Munoz, OXYGEN EQUIPMENT PREPARER [address] [place] [address] PCP - General Family Medicine 02/05/19 documented as of this encounter
--- OUTSIDE RECORDS SUMMARY | 2024-05-15 11:08 | XMS_ITS | Encounter Summary ---
[place] [address] Care Team Providers Care Electroencephalogram Technologist Name Role Phone MunozRuth jerome Lilibeth JUAREZ Primary Care Provider + Reason for Visit * Reason Comments Prior Authorization Encounter Details Date Type Department Care Team (Late st Contact Info) Description 08/14/2020 Specialty [place] [address] Kevin Ugalde, [facility] Social History Tobacco Use Types Packs/Day [...] as of this encounter Progress Notes * Kevin Ugalde - 08/14/2020 11:36 AM EDT [facility], Medication Prior Authorization Patient: Martha Benoit Patient : 1965 Patient Address: [address] [facility] [address] (home) Medication Name: COSENTYX PEN 150 MG/ML SUBCUTANEOUS Medication ID: [id number] Patient Location: [facility] Patient Location Comment: Subscriber Insurance: [place] Subscriber Insurance Comment: Fax: Physician: TERRANCE LYNN Physician Comment: Sent Via: [facility] [place]: [id number] Ref/Case/PA#: [id number] Medication Strength Frequency Requested: Inject the conents of 2 pens (300 mg) subcutaneously once every 28 days Qty/Day Supply: 12/20 New Start: Renewal Diagnosis & ICD-10 Code: L40.9 Patient Notified: No Submission Notes: None Kevin Ugalde 08/14/20 11:39 AM * Kevin Ugalde - 08/14/2020 11:36 AM EDT [facility], Prior Authorization Approval Medication Name: COSENTYX PEN 150 MG/ML SUBCUTANEOUS Medication ID: [id number] [facility]able at [facility]: Yes Approval Dates: 08/14/2020 to 08/14/2021 Insurance requirements/notes: None Other Notes: None Case/Reference #: [id number] Approval notification Received via: Fax Copay: $3.00 Copay assistance: None Copay Notes: Insurance mandated Pharmacy: [facility] Pharmacy staff will be reaching out to the patient to inform them [facility]. If applicable, a pharmacist will speak with the patient to offer our specialty pharmacy services and to arrange delivery of their medication. Kevin Ugalde 08/14/20 12:22 PM documented in this encounter Plan of Treatment Upcoming Encounters Date Type Department Care Team (Late st Contact Info) Description 02/19/2025 9:00 AM EDT TH Visit (TeleHealth) [place] [address] Wyatt Higgins MD [facility] [place] [address] documented as of this encounter Visit Diagnoses Not on filedocumented in this encounter Care Teams Electroencephalogram Technologist Relationship Specialty Start Date End Date Ruth Munoz APRN [address] [place] [address] PCP - General Family Medicine 02/05/19 documented as of this encounter
--- OUTSIDE RECORDS SUMMARY | 2024-05-15 11:08 | XMS_ITS | Encounter Summary ---
[place] [address] Care Team Providers Care Adjunct Psychology Faculty Member Name Role Phone Ruth Munoz Lilibeth JUAREZ Primary Care Provider + Encounter Details Date Type Department Care Team (Late st Contact Info) Description 11/23/2020 Telephone [place] [phone] Santos Mccloud RN Social History Tobacco Use Types Packs/Day [...] encounter Miscellaneous Notes * Telephone Encounter - Santos Mccloud RN - 11/24/2020 9:55 AM EST Placed call to patient. She requested that we call back in about an hour to schedule an appointmentas she says she just got out of the shower. * Telephone Encounter - Santos Mccloud RN - 11/24/2020 9:48 AM EST Images from the original note were not included. Judith Reinoso MD to Me ??? [facility] Preparation Operator ?? 11/23/20 8:12 PM Yes, please schedule FU visit (TH visit) soon. Thanks! JUDITH REINOSO MD * Telephone Encounter - Santos Mccloud RN - 11/23/2020 3:27 PM EST Patient left voicemail that she has been having issues with her BG requiring more testing and more insulin than what she normally uses. She says she has also been having issues with yeast, both female yeast as well as skin yeast, under the breast. She would like Dr Reinoso to address this if need be and requests a return call. documented in this encounter Plan of Treatment Upcoming Encounters Date Type Department Care Team (Late st Contact Info) Description 02/19/2025 9:00 AM EDT TH Visit (TeleHealth) [place] [address] Wyatt Higgins MD [facility] [place] [address] documented as of this encounter Visit Diagnoses Not on filedocumented in this encounter Care Teams Adjunct Psychology Faculty Member Relationship Specialty Start Date End Date Ruth Munoz APRN [address] [place] [address] PCP - General Family Medicine 02/05/19 documented as of this encounter
--- OUTSIDE RECORDS SUMMARY | 2024-05-15 11:08 | XMS_ITS | Encounter Summary ---
[place] [address] Care Team Providers Care Component Inspector Name Role Phone AlexanderAidanantony Mcelroy APRN Primary Care Provider + Encounter Details Date Type Department Care Team (Late st Contact Info) Description 03/17/2021 Telephone Dermatology at [address] [address] Benita Salazar LPN Social History [...] Telephone Encounter - Benita Salazar LPN - 03/17/2021 12:37 PM EDT Patient called with concerns about her list of medications. Reviewed concerns; corrections made. Verified Cosentyx script. Patient voiced understanding. documented in this encounter Plan of Treatment Upcoming Encounters Date Type Department Care Team (Late st Contact Info) Description 02/19/2025 9:00 AM EDT TH Visit (TeleHealth) [place] [address] Wyatt Higgins MD [facility] [address] documented as of this encounter Visit Diagnoses Not on filedocumented in this encounter Care Teams Component Inspector Relationship Specialty Start Date End Date Ruth Munoz APRN [address] [place] [address] PCP - General Family Medicine 02/05/19 documented as of this encounter
--- OUTSIDE RECORDS SUMMARY | 2024-05-15 11:08 | XMS_ITS | Encounter Summary ---
[place] [address] Care Team Providers Care 4Th Grade Math Teacher Name Role Phone Alexander Ruth Mcelroy APRN Primary Care Provider + Encounter Details Date Type Department Care Team (Late st Contact Info) Description 05/13/2021 Telephone [place] [phone] Brittnee Cooper Social History Tobacco Use Types [...] Telephone Encounter - Brittnee Cooper - 05/13/2021 1:00 PM EDT Patient just scheduled a colo but wants to see if she can use Osmopret Prep for this procedure. 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 Asking Dr. Stuart about that before sending a letter of confirmation to her. documented in this encounter Plan of Treatment Upcoming Encounters Date Type Department Care Team (Late st Contact Info) Description 02/19/2025 9:00 AM EDT TH Visit (TeleHealth) [place] [address] Wyatt Higgins MD [facility] [place] [address] documented as of this encounter Visit Diagnoses Not on filedocumented in this encounter Care Teams 4Th Grade Math Teacher Relationship Specialty Start Date End Date Ruth Munoz APRN [address] [place] [address] PCP - General Family Medicine 02/05/19 documented as of this encounter
--- OUTSIDE RECORDS SUMMARY | 2024-05-15 11:08 | XMS_ITS | Encounter Summary ---
Author Organization [facility] [place] [address] Care Team Providers Care Assistant Floor Covering Printer Name Role Phone MunozRuth jerome Lilibeth JUAREZ Primary Care Provider + Reason for Visit * Reason Comments Medication Refill Encounter Details Date Type Department Care Team (Late st Contact Info) Description 11/22/2020 Refill [place] [phone] Judith Reinoso MD [facility] [place] [address] Social History Tobacco Use Types Packs/Day Years [...] AM EDT TH Visit (TeleHealth) [place] [address] Wyatt Higgins MD [facility] [place] [address] documented as of this encounter Visit Diagnoses Not on filedocumented in this encounter Care Teams Assistant Floor Covering Printer Relationship Specialty Start Date End Date Ruth Munoz, LARRY [address] [place] [address] PCP - General Family Medicine 02/05/19 documented as of this encounter
--- OUTSIDE RECORDS SUMMARY | 2024-05-15 11:08 | XMS_ITS | Encounter Summary ---
[place] [address] Care Team Providers Care Embedded Engineer Name Role Phone Ruth Munoz LARRY Primary Care Provider + Reason for Visit * Reason Comments Medication Management Encounter Details Date Type Department Care Team (Late st Contact Info) Description 07/10/2020 Specialty Pharm[place] [address] Sravanthi Cardoza RPH Social History Tobacco Use [...] Progress Notes * Sravanthi Cardoza RPH - 07/10/2020 9:53 AM EDT Clinical Management Plan: Medication Question Specialty Pharmacy Consultation; Sravanthi Cardoza RPH Comprehensive Medication Management (CMM) Martha Benoit Ms. Martha Moon Benoit is a 54 y.o. (1965) female who contacted Specialty Pharmacy regarding a concern with their specialty medication, Cosentyx. Summary and Recommendations: Spoke to patient in regards to Cosentyx. She says it is not working as well for her. The improvement she was hoping to see on medication has not occurred. She did not elaborate on the extent of improvement or lack of improvement. She says she will consult with her provider first before getting a refill from us. She will be due for a dose on 07/15/2020. We will follow up with her provider and the patient accordingly. Clinic follow-up needed: yes - may need an appointment to assess for efficacy Was a change made to the Care Plan: no If yes, should the medication be held: No Pt understands no changes to current drug regimen were made at the appointment and that [facility] is providing recommendations (summary located at top of note) for provider review and follow up. Sravanthi Cardoza RPH 07/10/20 9:54 AM documented in this encounter Plan of Treatment Upcoming Encounters Date Type Department Care Team (Late st Contact Info) Description 02/19/2025 9:00 AM EDT TH Visit (TeleHealth) [place] [address] Wyatt Higgins MD [facility] [place] [address] documented as of this encounter Visit Diagnoses Not on filedocumented in this encounter Care Teams Embedded Engineer Relationship Specialty Start Date End Date Ruth Muonz APRN [address] [place] [address] PCP - General Family Medicine 02/05/19 documented as of this encounter
--- OUTSIDE RECORDS SUMMARY | 2024-05-15 11:08 | XMS_ITS | Encounter Summary ---
[place] [address] Care Team Providers Care Realtime Captioner Name Role Phone Ruth Munoz LARRY Primary Care Provider + Reason for Visit * Reason Comments Specialty Refill Management Encounter Details Date Type Department Care Team (Late st Contact Info) Description 02/17/2021 Specialty [place] [address] Sravanthi Cardoza RPH Social History Tobacco Use [...] Progress Notes * Sravanthi Cardoza RPH - 02/17/2021 1:07 PM EDT Clinical Management Plan: Refill Specialty [...] Known Allergies Medication Reconciliation Discrepancies (compared to [facility] med list) No Specialty Pharmacy Refill Questionnaire Refill Questionnaire 02/17/2021 What is the name of the specialty medication you are refilling? Cosentyx Are you taking any new medications? No Any new medical condition? No Any new allergies? No Any new side effects that are bothersome? No Adherence: Any missed doses? No Patient understands no changes to current drug regimen were made.. Sravanthi Cardoza RPH 02/17/21 1:08 PM documented in this encounter Plan of Treatment Upcoming Encounters Date Type Department Care Team (Late st Contact Info) Description 02/19/2025 9:00 AM EDT TH Visit (TeleHealth) [place] [address] Wyatt Higgins MD [facility] [place] [address] documented as of this encounter Visit Diagnoses Not on filedocumented in this encounter Care Teams Realtime Captioner Relationship Specialty Start Date End Date Ruth Munoz APRN [address] [place] [address] PCP - General Family Medicine 02/05/19 documented as of this encounter
--- OUTSIDE RECORDS SUMMARY | 2024-05-15 11:08 | XMS_ITS | Encounter Summary ---
[place] [address] Care Team Providers Care Classroom Monitor Name Role Phone Ruth Munoz LARRY Primary Care Provider + Encounter Details Date Type Department Care Team (Late st Contact Info) Description 01/25/2021 Telephone [place] [phone] Santos Mccloud RN Social History Tobacco Use [...] Telephone Encounter - Santos Mccloud RN - 01/26/2021 9:47 AM EDT Images from the original note were not included. Judith Reinoso MD to Me ?? 01/25/21 6:51 PM Hm.. Please check with PCP first and get the referral from PCP directly. We cannot assume neurogenic bladder without assessment and PCP is better do this. Thanks. JUDITH REINOSO MD Returned call to patient to relay this message from Dr Reinoso. Patient verbalized understanding and will work with PCP for referral. * Telephone Encounter - Santos Mccloud RN - 01/25/2021 4:08 PM EDT Patient left voicemail requesting that Dr Reinoso place a referral for her to see a urologist. She says she has been having issues with her urine flow and thinks she may need to see a urologist. She would like a call back to know if this can or can't be done. documented in this encounter Plan of Treatment Upcoming Encounters Date Type Department Care Team (Late st Contact Info) Description 02/19/2025 9:00 AM EDT TH Visit (TeleHealth) [place] [address] Wyatt Higgins MD [facility] [place] [address] documented as of this encounter Visit Diagnoses Not on filedocumented in this encounter Care Teams Classroom Monitor Relationship Specialty Start Date End Date Ruth Munoz APRN [address] [place] [address] PCP - General Family Medicine 02/05/19 documented as of this encounter
--- OUTSIDE RECORDS SUMMARY | 2024-05-15 11:08 | XMS_ITS | Encounter Summary ---
[place] [address] Care Team Providers Care Securities Clerk Name Role Phone Ruth Munoz APRN Primary Care Provider + Encounter Details Date Type Department Care Team (Late st Contact Info) Description 06/18/2020 Ancillary Procedure [place] [address] Ruth Munoz APRN [address] [place], [place] [address] Social History Tobacco Use Types Packs/Day Years [...] TH Visit (TeleHealth) [place] [address] Wyatt Higgins MD [facility] [place] [address] documented as of this encounter Procedures Procedure Name Priority Date/Time Associated Diagnosis Comments FILM LIBRARY STORAGE ONLY MR HEAD Routine 06/18/2020 12:00 AM EDT documented in this encounter Results * Film Library- Storage Only MR Head (06/18/2020 12:00 AM EDT) Narrative [facility] - 09/24/2020 9:50 AM EST This exam is auto-finalizing. It's purpose is for storage only. Ruth Munoz APRN [employer] FILM LIBRARY ORDERABLES [place], [place] documented in this encounter Visit Diagnoses Not on filedocumented in this encounter Care Teams Securities Clerk Relationship Specialty Start Date End Date Ruth Munoz APRN [address] [place] [address] PCP - General Family Medicine 02/05/19 documented as of this encounter
--- OUTSIDE RECORDS SUMMARY | 2024-05-15 11:08 | XMS_ITS | Encounter Summary ---
[place] [address] Care Team Providers Care Experimental Preflight Mechanic Name Role Phone Ruth Munoz LARRY Primary Care Provider + Reason for Visit * Reason Comments Medication Management Patient Education Encounter Details Date Type Department Care Team (Late st Contact Info) Description 04/27/2021 Specialty Pharmacy [place] [address] Nura Lozano [facility] Social History Tobacco Use Types Packs/Day [...] Progress Notes * Nura Lozano Aline - 04/27/2021 1:55 PM EDT Clinical Management Plan: Refill Specialty Pharmacy Consultation; Nura Lozano [facility] Comprehensive Medication Management (CMM) Martha Benoit Ms. Martha Moon Cy is a 55 y.o. (1965) female who [...] change made to the Care Plan: no Assessment and Recommendations: Title Type of Medication Management: chronic disease management, targeted medication review Referred By: pharmacist Recipient: beneficiary Provider: plan sponsor pharmacist Visit Type: [facility] Follow-up Method of Contact: by telephone Cognitive Ability: good Cognitive Impairment Status Verified this Year: no Allergies and Drug intolerance: No Known Allergies Medication Reconciliation Discrepancies (compared to [facility] med list) -Was holding dose. Missed roughly a week of therapy. No questions. Specialty Pharmacy Refill Questionnaire Refill Questionnaire 04/27/2021 What is the name of the specialty medication you are refilling? cosentyx Are you taking any new medications? No Any new medical condition? No Any new allergies? No Any missed doses since your last fill? Yes Please explain 1 Any new side effects that are bothersome? No What date will you need this fill by? - Adherence: Medication Adherence Patient reported X missed doses in the last month: 0 Any gaps in refill history greater than 2 weeks in the last 3 months: no Demonstrates understanding of importance of adherence: yes Informant: patient Reliability of informant: reliable Provider-estimated medication adherence level: good Reasons for non-adherence: no problems identified Adherence tools used: calendar, directed education Support network for adherence: healthcare provider Pt understands no changes to current drug regimen were made at the appointment and that [facility] is providing recommendations (summary located at top of note) for provider review and follow up. Nura Lozano RPH 04/27/21 1:57 PM documented in this encounter Plan of Treatment Upcoming Encounters Date Type Department Care Team (Late st Contact Info) Description 02/19/2025 9:00 AM EDT TH Visit (TeleHealth) [place] [address] Wyatt Higgins MD [facility] [place] [place] [address] documented as of this encounter Visit Diagnoses Not on filedocumented in this encounter Care Teams Experimental Preflight Mechanic Relationship Specialty Start Date End Date Ruth Munoz, LARRY [address] [place] [address] PCP - General Family Medicine 02/05/19 documented as of this encounter
--- OUTSIDE RECORDS SUMMARY | 2024-05-15 11:08 | XMS_ITS | Encounter Summary ---
[place] [address] Care Team Providers Care Sales Promotion Officer Name Role Phone Ruth Munoz LARRY Primary Care Provider + Reason for Visit * Reason Comments Medication Management Encounter Details Date Type Department Care Team (Late st Contact Info) Description 07/10/2020 Specialty [place] [address] Sravanthi Cardoza RPH Social History Tobacco Use [...] Notes * Sravanthi Cardoza RPH - 07/10/2020 2:44 PM EDT Clinical Management Plan: Refill Specialty Pharmacy Consultation; Sravanthi Cardoza RPH Comprehensive Medication Management (CMM) Martha Benoit Ms. Martha Moon Benoit is a 54 y.o. (1965) female who was contacted in regard to a specialty medication refill reminder. Spoke with patient regarding Cosentyx. A review of the medication therapy was performed. The medication was Refilled as scheduled, and all medication related questions [...] beneficiary Provider: plan sponsor pharmacist Visit Type: [facility] Follow-up Method of Contact: by telephone Cognitive Ability: good Cognitive Impairment Status Verified this Year: no Allergies and Drug intolerance: No Known Allergies Medication Reconciliation Discrepancies (compared to [facility] med list) -none New medications: no New medical conditions: no New allergies: no Adherence: Medication Adherence Patient reported X missed doses in the last month: 0 Any gaps in refill history greater than 2 weeks in the last 3 months: no Demonstrates understanding of importance of adherence: yes Informant: patient Reliability of informant: reliable Provider-estimated medication adherence level: 90-100% Reasons for non-adherence: no problems identified Adherence tools used: directed education Support network for adherence: healthcare provider Confirmed plan for next specialty medication refill: delivery by pharmacy Refills needed for supportive medications: not needed Are you experiencing any side effects from your medications? no Pt understands no changes to current drug regimen were made at the appointment and that [facility] is providing recommendations (summary located at top of note) for provider review and follow up. Sravanthi Cardoza RPH 07/10/20 2:45 PM documented in this encounter Plan of Treatment Upcoming Encounters Date Type Department Care Team (Late st Contact Info) Description 02/19/2025 9:00 AM EDT TH Visit (TeleHealth) [place] [address] Wyatt Higgins MD [facility] [address] documented as of this encounter Visit Diagnoses Not on filedocumented in this encounter Care Teams Sales Promotion Officer Relationship Specialty Start Date End Date Ruth Munoz APRN [address] [place] [address] PCP - General Family Medicine 02/05/19 documented as of this encounter
--- OUTSIDE RECORDS SUMMARY | 2024-05-15 11:08 | XMS_ITS | Encounter Summary ---
[place] [address] Care Team Providers Care Forwarder Operator Name Role Phone Ruth Munoz LARRY Primary Care Provider + Reason for Visit * Reason Comments Medication Management Patient Education Encounter Details Date Type Department Care Team (Late st Contact Info) Description 05/19/2021 Specialty [place] [address] Nura Lozano [facility] Social History Tobacco Use Types [...] Progress Notes * Nura Lozano Aline - 05/19/2021 1:20 PM EDT Clinical Management Plan: Refill Specialty Pharmacy Consultation; Nura Lozano [facility] Comprehensive Medication Management (CMM) Martha Benoit Ms. [...] Reconciliation Discrepancies (compared to [facility] med list) No Specialty Pharmacy Refill Questionnaire Refill Questionnaire 05/19/2021 What is the name of the specialty medication you are refilling? cosentyx Are you taking any new medications? No Any new medical condition? No Any new allergies? No Any new side effects that are bothersome? No What date will you need this fill by? 05/22/2021 Adherence: Any missed doses? No Patient understands no changes to current drug regimen were made.. Nura Lozano RPH 05/19/21 1:22 PM documented in this encounter Plan of Treatment Upcoming Encounters Date Type Department Care Team (Late st Contact Info) Description 02/19/2025 9:00 AM EDT TH Visit (TeleHealth) [place] [address] Wyatt Higgins MD [facility] [place] [address] documented as of this encounter Visit Diagnoses Not on filedocumented in this encounter Care Teams Forwarder Operator Relationship Specialty Start Date End Date Ruth Munoz APRN [address] [place] [address] PCP - General Family Medicine 02/05/19 documented as of this encounter
--- OUTSIDE RECORDS SUMMARY | 2024-05-15 11:08 | XMS_ITS | Encounter Summary ---
[place] [address] Care Team Providers Care Beef Cattle Specialist Name Role Phone MunozRuth jerome Lilibeth JUAREZ Primary Care Provider + Reason for Visit * Reason Comments Prior Authorization Cosentyx Sensoready (300mg) 150 SOAJ Encounter Details Date Type Department Care Team (Late st Contact Info) Description 05/14/2020 Specialty [place] [address] Louis Baeza, [facility] Social History Tobacco Use Types Packs/Day [...] encounter Progress Notes * Louis Baeza - 05/14/2020 8:16 AM EDT [facility], Prior Authorization Approval Medication Name: COSENTYX PEN 300 MG/2 PENS (150 MG/ML) SUBCUTANEOUS Medication ID: Fillable at [facility]: Yes Approval Dates: 05/12/2020 to 08/12/2020 Insurance requirements/notes: None Other Notes: None Case/Reference #: [id number] Approval notification Received via: Fax Copay: $ 3.00 Copay assistance: None Copay Notes: Insurance mandated Pharmacy: [facility] Pharmacy staff will be reaching out to the patient to inform them of their medication's approval bytheir insurance. If applicable, a pharmacist will speak with the patient to offer our specialty pharmacy services and to arrange delivery of their medication. documented in this encounter Plan of Treatment Upcoming Encounters Date Type Department Care Team (Late st Contact Info) Description 02/19/2025 9:00 AM EDT TH Visit (TeleHealth) [place] [address] Wyatt Higgins MD [facility] [place] [address] documented as of this encounter Visit Diagnoses Not on filedocumented in this encounter Care Teams Beef Cattle Specialist Relationship Specialty Start Date End Date Ruth Munoz APRN [address] [place] [address] PCP - General Family Medicine 02/05/19 documented as of this encounter
--- OUTSIDE RECORDS SUMMARY | 2024-05-15 11:08 | XMS_ITS | Encounter Summary ---
Author Organization [facility] [place] [address] Care Team Providers Care Supervisor Roving Department Name Role Phone Ruth Munoz [facility] Primary Care Provider + Encounter Details Date Type Department Care Team (Late st Contact Info) Description 10/06/2020 3:30 PM EST TH Visit (TeleHealth) [place] [address] Randee López, PAPER REEL OPERATOR [facility] [place] [address] Nany Tai, RD [facility] [place] [address] Status post bariatric surgery; Disorder of iron [...] this encounter Patient Instructions * Patient Instructions* Nany Tai [place], RD - 10/06/2020 3:30 PM EST [facility] desktop support consultant Latosha [phone] and Julia [phone] Dietitians: [phone] Surgeons/ nurse practitioners: [phone] Nurse line: [phone] Dear Martha, Below please find a summary of our discussion/recommendations from your visit as well as some otherbariatric surgery related information. Testing: If you are due to have lab work today please have it done when you are able. We will plan to follow up with you once your results are available and make additional recommendations re: your vitamins and supplements. Please call/send my DemoH[employer] message if you have not heard from us within 2 weeksof having labs work done. In the future, it would be helpful if you can have your lab work drawn a couple days before your visit so the results are available at the time of your follow up visit Next visit: Follow up visits are done at 4 months and 12 months after surgery and yearly thereafter. High risk patients are evaluated on a more frequent basis. Please call [phone] if you do not receive an appointment by 3-4 weeks prior to the expected visit. Vitamins: The following vitamins are recommended: ??? Multivitamins with minerals twice daily- needs to be an under 50 multivitamin that contains iron. ??? Vitamin B12 500 mcg by mouth once daily ??? Vitamin D: 50,000 IU weekly or per Dr. Reinoso ??? Nutrition recommendations: - Your Daily Goals: ?? 1,000-1,200 calories per day (300 calories [...] Blow dry area on low setting with department of mathematics chair. 3. Apply absorbent powder such as Gold Cash and Desinex 4. Apply cotton strips (such as strips from old sheets) or larger size cotton underwear folded beneath skin folds to act as a wick. Do not apply vivien cloth toweling which can cause further irritation 5. Try combination of over the counter hydrocortisone cream with over the counter antifungal cream such as lotrimin twice a day for 2 weeks. 6. If your symptoms do not improve you may require prescription of anti-fungal cream/powder. 7. Follow up with PCP if symptoms worsen/fail [...] with doses higher than 2 capfuls twice daily On days with loosestools, we recommend reducing miralax to 1/2 capful [...] difficulty keeping food or fluid down. Alcohol: should be used sparingly, no more than one drink per occasion. Alcohol is a source of empty calories and can cause ulcers and vitamin and mineral deficiencies. Alcohol is toxic to the liver and is absorbed more quickly after surgery, it stays in the system longer. Studies have noted that there is an increased risk of alcohol dependence after bariatric surgery. Alcohol is not recommended until at least1 year post surgery, and after goal weight has been achieved f non-prescribed drugs and treet drugs is unsafe Anti-inflammatory medications such as Ibuprofen (Advil), Aleve (Naproxen), Excedrin, should be usedsparingly after gastric bypass, since they increase the risk of ulcer and bleeding. A bone mineral density scan (DEXA) is recommended every 2 years after bariatric surgery. Please schedule this study through your primary care providers office. Potential lifetime risks of gastric bypass include risk of ulcer, which is increased with alcohol and antiinflammatory medications and internal hernia (less than 5%), which may be increased with higher than predicted weight loss Sleep Apnea: If you have a history of sleep apnea and have a CPAP/BiPAP, please be sure to follow up with the sleep center to confirm your pressures and determine if continued use of CPAP/BiPAP is recommended. Call us: ??? If you have concerns. ??? If you have unexplained abdominal pain. ??? if you see blood in your stool or vomit blood ??? If you have prolonged vomiting Post Surgery Support Group: Our post surgery support group meets at [facility] on the first Monday of every month from 1:00 PM-2:00 PM. Nutrition and Activity apps- Baritastic, My Fitness Pal, Lose It, My Plate Internet resources: www.[employer] wwwRazient www.HITbills www.Change.org/blog [facility] facebook page: [email or web address]LEBariatricSurgery Books & Magazines: - Recipes for Life After Weight Loss Surgery by Ashli Wiseman - Shrink Yourself by Dr Stephen Dial - Eating Well - www.[employer] - Cooking Light- www.cookinglight.Roundscapes Anxiety: The Happiness Trap by Mir Short The Mindfulness and acceptance workbook for anxiety By James Sunshine. Mindful eating: What are you Hungry For? By Jose Duran The Mindful Diet by Abby Hernandez and the [facility] group. Emotional eating: End Emotional Eating by Nany Matos Calming the Emotional Storm Floresita Cortes documented in this encounter Progress Notes * Randee López APRN - 10/06/2020 3:30 [place] [address] Bariatric Surgery Program: Telehealth/telephone Encounter. 1. Reason/purpose for phone call: BSP follow up visit 2. The patient voiced an understanding of the reason and intent of the televisit and provided verbal consent to discuss clinical issues by telehelath. Additionally, the patient acknowledged that the telehealth consultation is a billable encounter, and that the patient or their medical insurance carrier could be billed. 3. Date 10/06/20, Time: Call began at: 3:30; call ended at: 4:02. Total time of call: 32 minutes. 4. Summary of conversation, decision making, and plan: see below encounter note for details. Reason for visit: Bariatric Surgery follow up visit Subjective: Martha Benoit is s/p laparoscopic Janeth-en-Y gastric bypass on 01/04/16, she presents today via telehealth visit for annual BSP follow up. Overall tolerating foods/fluids, doesn't measure or track her food. But feels like she is meeting nutritional/fluid requirements. Weight has been stable overall. No bariatric related concerns/complaints today. Hx of Vit D deficiency- taking Vit D 50K/week managed by Dr. Reinoso. Taking multi- vitamin with minerals/iron twice daily, Vit B12 500 mcg daily. Hx of kidney stones- no longer takes Calcium supplement Interim Health: seen in dermatology for psoriasis on new medication which seems to be helping. Continues to work on trying to keep her diabetes under control. Reports her health has been stable overall. No surgeries, hospitalizations, or bariatric related ED visits since the last visit. Hx of kidney stones,no recent issues. No atraumatic fractures. Pt follows with PCP/specialist for disease management and age specific screening. Obesity related medical issues- o Diabetes [x] Yes on metformin, insulin, glucotrol a1c 7.8 [] Not a baseline issue o HTN: [] Yes [x] Not a baseline issue o GERD: [x] Yes stable on PPI [] Not a baseline issue o Hyperlipidemia: [x] Yes improved not requiring treatment [] Not a baseline issue o DAMIAN: [] Yes, [x] Not a baseline issue o Musculoskeletal issues: [x] Yes continues to be an on-going issue. Ambulates with walker Patient Active Problem List Diagnosis Code ??? [...] Review of Systems Constitutional: energy level is good, occasional restless leg, no pica, ongoing hair thinning Neuro: + neuropathy- baseline issue- continues to progress. + memory loss- no recent changes CV: no chest pain or palpitations. Pulm: denies SOB or cough. GI: denies bloating, abdominal pain, nausea, vomiting. No diarrhea or constipation. 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 skin fold rashes as well as psoriatic flares. Follows with dermatology. Health Habits: Tobacco/Nicotine use: None ETOH use: None No NSAID use. Dietary history/ exericse/ activity level: See dietitian note from today's visit for complete dietary evaluation. Meds and Allergies reviewed. Complications summary: Early Prolonged hospital stay. Admitted to [facility] on 01/24/16 with nausea and vomiting, failure to progress diet. Transfer to [facility] on 01/25/16 Late none Pre-op 11/03/15 Wt (lbs) 247 BMI 43.7 WT visit #2 249 HT:63 Introductory meeting date: 07/26/14 Post-op Visit date Wt (lbs) BMI %EBW lost 03/23/16 216 38.2 26.1 07/05/16 189 33.4 55 04/06/17 177 31.4 66 02/12/18 175 31 68 02/05/19 184 32.4 60 10/06/20 185 ~32.5 ~60 Recent OSH labs: B12 1832, Vit D 36.5, CMP- unremarkable- Albumin 3.7, A1c 7.8, Ferritin 64, iron 62, H/H 13.4/45, lipids are normal Assessment and Plan: ??? 4 years s/p laparoscopic Janeth-en-Y gastric bypass, with ~60 % of excess body weight lost, o doing well from a bariatric surgery perspective o Patient has met with shift manager today, please see note for additional details/dietary evaluation. ??? Obesity related co-morbidities are improved/stable overall. ??? Risk for vitamin deficiencies: o Reviewed recommended vitamin/mineral supplements- see RD note for details - Vit D - will plan to continue on 50K/week or per Dr. Reinoso ??? Pt reminded that a bone mineral density scan (DEXA) is recommended every 2 years after bariatric surgery. Recommended f/u with primary care provider to check if up to date. RTC in 1 year for next BSP follow up visit, with labs. Call/rtc sooner prn with questions/concerns or unexplained abdominal pain, prolonged nausea, vomiting or inability to hydrate. Bariatric Program Summary report is availabe for patient's review via e- Randee López APRN RECOMMENDED BARIATRIC SURGERY PROGRAM POSTOPERATIVE FOLLOW-UP: [...] If labwork is done by the primary palliative care specialist: please send a copy to the Bariatric Surgery Program, General Surgery Clinic, [facility], or fax [phone] * Nany Tai RD - 10/06/2020 3:30 PM EST Bariatric Nutrition Telephone Office Visit Call made with Randee López APRN At time of the call patient was [place] in [place] SUBJECTIVE: Topics Discussed/Patient Concerns: Wondering about her iron levels. Social history: Has 8 grown children, 4 biological and 4 adopted. Took on nieces and nephews when her sister , has 12 kids in total. Lives with one daughter and one son (nephew) in the house, no pets. On disability. Son (who had surgery) is supportive of her getting bariatric surgery. Goal weight: none, rough idea is 160-170#, [...] ~185# 60% 32.6 Nearly 5 years post-op Predicted weight loss with surgery is an estimated 50-70% of excess body weight, which would be a goal weight between 172-193#. ?? Vitamin/Mineral Supplements??(reported by patient): Supplement Type Brand/Form Dosage/Amount Frequency Comments Multivitamin Billings's chewable 1 Twice??daily ?? Calcium ? none Hx of Kidney stones?? Vitamin??B12 ?? 500 mcg daily ?? Iron none causes constipation W/o vit C Vitamin D2 rx 50,000 IU 1x/ week ? Food Allergies/Intolerances:??lactose intolerant-??milk,??ice cream, cottage cheese- can eat in small amounts. Broccoli is difficult to digest ?? Tracking Intake:??None ? 24-Hour??Intake: Pt had difficulty providing a 24-hour recall. Reports snacking on beef jerky. Eatssmall amounts at a time- about 1/2 cup. Can eat anything. 1 pc fruit daily. ?? Breakfast 5AM- apple and PB. Went back to bed after eating this. AM Snack Sausage link w an egg Lunch [place] and coffee PM Snack Single serve package of beef jerky Dinner HS Snack Protein- grams/day: 30-40 g? Hydrating fluids - oz/day: Water or CL all day long Soda: Hardly ever ETOH: none Caffeine: Coffee daily Other: ?? Vomiting/ regurgitation: none ?? Nausea: none ?? Constipation/diarrhea: None ?? Dumping syndrome: None. Can eat sweets. Exercise: walks w a walker. Does what she can. Exercises w her arms using canned vegetables. ASSESSMENT: Martha is nearly 5 years post RNYGB. She is tolerating the diet. Difficult to discern if she is meeting protein needs because she cannot recall an entire day's meal. ? If recall issues are due to memory loss. States she doesn't really pay attention to her meals just eats small amounts. States she drinks fluids throughout the day. Reviewed supplements. Does not take calcium due to hx kidney stones.Randee López APRN to review recent labs with pt. Martha exercises as she can tolerate. PLAN: ?? Provided support/encouragement and reinforced importance of meeting nutritional goals. ?? Keep an eye on protein intake. Goal is 60g per day. ?? Reviewed nutrition and vitamin and mineral supplement recommendations. ??? Multivitamins with minerals twice daily- needs to be an under 50 multivitamin that contains iron. ??? Vitamin B12 500 mcg by mouth once daily ??? Vitamin D: 50,000 IU weekly o Follow-up in 1 year documented in this encounter Plan of Treatment Upcoming Encounters Date Type Department Care Team (Late st Contact Info) Description 02/19/2025 9:00 AM EDT TH Visit (TeleHealth) [place] [address] Wyatt Higgins MD [facility] [place] [address] documented as of this encounter Visit Diagnoses Diagnosis Status post bariatric surgery Bariatric surgery status Disorder of iron metabolism Other disorders of iron metabolism documented in this encounter Care Teams Supervisor Roving Department Relationship Specialty Start Date End Date Ruth Munoz, PAPER REEL OPERATOR [address] [place] [address] PCP - General Family Medicine 02/05/19 documented as of this encounter
--- OUTSIDE RECORDS SUMMARY | 2024-05-15 11:08 | XMS_ITS | Encounter Summary ---
[facility] [place] [address] Care Team Providers Care Forest Ecology Professor Name Role Phone MunozRuth jerome Lilibeth JUAREZ Primary Care Provider + Encounter Details Date Type Department Care Team (Late st Contact Info) Description 03/11/2021 Telephone Dermatology at [place] [address] [facility] [place] [address] Galdino Gilliland MD [address] [facility] DERMATOLOGY [place], [place] [id number] Social History Tobacco Use Types Packs/Day Years [...] encounter Miscellaneous Notes * Telephone Encounter - Katia French R - 03/11/2021 8:32 AM EDT Patient contacted the clinic today (03/11) with questions regarding her AVS from her visit on 5/17. Patient is specifically concerned that her instructions include the following: ?? Stop taking the Fint Stone Multi Vitamin. Per Patient this is prescribed by her Gastric Bypass provider and she cannot stop this medication. She is also concerned that there was no discussion regarding changing this medication. Change the way she takes baclofen??(LIORESAL)??- per patient this was not discussed an instructions where given to as how she would change taking the medication. ?? Patient also wanted to verify her Cosentyx script and including amount per injection and how frequently she should be taking the injection. Please contact patient at [phone] to discuss concerns. documented in this encounter Plan of Treatment Upcoming Encounters Date Type Department Care Team (Late st Contact Info) Description 02/19/2025 9:00 AM EDT TH Visit (TeleHealth) [place] [address] Wyatt Higgins MD [facility] [address] [place] [address] documented as of this encounter Visit Diagnoses Not on filedocumented in this encounter Care Teams Forest Ecology Professor Relationship Specialty Start Date End Date Ruth Munoz APRN [address] [place] [address] PCP - General Family Medicine 02/05/19 documented as of this encounter
--- OUTSIDE RECORDS SUMMARY | 2024-05-15 11:08 | XMS_ITS | Encounter Summary ---
[place] [address] Care Team Providers Care Logistics Technician Name Role Phone Ruth Munoz APRN Primary Care Provider + Encounter Details Date Type Department Care Team (Latest Contact Info) Description 05/31/2021 8:40 AM EDT Laboratory Appointment Lab [address] [place] [address] Status post bariatric surgery; Intestinal malabsorption, unspecified type; Disorder of iron metabolism; Type 2 diabetes mellitus, uncontrolled, with neuropathy; Vitamin D deficiency; Status post gastric bypass for obesity; Dyslipidemia; Chronic fatigue Social History Tobacco Use Types Packs/Day Years [...] Encounters Date Type Department Care Team (Late Contact Info) Description 02/19/2025 9:00 AM EDT TH Visit (TeleHealth) [place] [address] Wyatt Higgins MD [facility] [place] [address] documented as of this encounter Procedures Procedure Name Priority Date/Time Associated Diagnosis Comments HC CREATININE - NON BLOOD Routine 05/31/2021 8:55 AM EDT Type 2 diabetes mellitus, uncontrolled, with neuropathy Vitamin D deficiency Status post gastric bypass for obesity Dyslipidemia Chronic fatigue HC VENIPUNCTURE Routine 05/31/2021 8:48 AM EDT Status post bariatric surgery Intestinal malabsorption, unspecified type Disorder of iron metabolism HEMOGRAM Routine 05/31/2021 8:48 AM EDT Type 2 diabetes mellitus, uncontrolled, with neuropathy Vitamin D deficiency Status post gastric bypass for obesity Dyslipidemia Chronic fatigue DIFFERENTIAL, AUTOMATED Routine 05/31/2021 8:48 AM EDT Type 2 diabetes mellitus, uncontrolled, with neuropathy Vitamin D deficiency Status post gastric bypass for obesity Dyslipidemia Chronic fatigue HC IRON BINDING CAPACITY Routine 05/31/2021 8:48 AM EDT Type 2 diabetes mellitus, uncontrolled, with neuropathy Vitamin D deficiency Status post gastric bypass for obesity Dyslipidemia Chronic fatigue HC VITAMIN D TOTAL-25 HYDROXY Routine 05/31/2021 8:48 AM EDT Type 2 diabetes mellitus, uncontrolled, with neuropathy Vitamin D deficiency Status post gastric bypass for obesity Dyslipidemia Chronic fatigue HC CBC,PLT & AUTO DIFF Routine 8:48 AM EDT Type 2 diabetes mellitus, uncontrolled, with neuropathy Vitamin D deficiency Status post gastric bypass for obesity Dyslipidemia Chronic fatigue HC THYROID STIMULATING HORMONE, SERUM Routine 05/31/2021 8:48 AM EDT Type 2 diabetes mellitus, uncontrolled, with neuropathy Vitamin D deficiency Status post gastric bypass for obesity Dyslipidemia Chronic fatigue HC HEMOGLOBIN A1C Routine 05/31/2021 8:4 8 AM EDT Type 2 diabetes mellitus, uncontrolled, with neuropathy Vitamin D deficiency Status post gastric bypass for obesity Dyslipidemia Chronic fatigue HC FOLATE, SERUM Routine 05/31/2021 8:48 AM EDT Status post bariatric surgery Intestinal malabsorption, unspecified type Disorder of iron metabolism HC VITAMIN B12 SERUM Routine 05/31/2021 8:48 AM EDT Type 2 diabetes mellitus, uncontrolled, with neuropathy Vitamin D deficiency Status post gastric bypass for obesity Dyslipidemia Chronic fatigue LIPID PANEL (REFLEX DIRECT LDL) Routine 05/31/2021 8:48 AM EDT Type 2 diabetes mellitus, uncontrolled, with neuropathy Vitamin D deficiency Status post gastric bypass for obesity Dyslipidemia Chronic fatigue COMPREHENSIVE METABOLIC PANEL (NON-FASTING) Routine 05/31/2021 8:48 AM EDT Type 2 diabetes mellitus, uncontrolled, with neuropathy Vitamin D deficiency Status post gastric bypass for obesity Dyslipidemia Chronic fatigue documented in this encounter Results * U Albumin/Cre Ratio (05/31/2021 8:55 AM EDT) Alb/Cr Ratio, Random 15 0 - 29 mcg/mg Cr [facility] Comment: Reference Ranges: <30 mcg/mg: [...] 2, 357? 362 U Albumin Conc, Random 4.6 mg/L [facility] U Creatinine 31 mg/dL [facility] Urine 05/31/2021 8:55 AM EDT 05/31/2021 9:04 AM EDT Narrative Resulting Agency Comment Spec In Lab Judith Reinoso MD URINE ORDERABLES Performing Organization Address City/[facility]/[place] [address] * (ABNORMAL) Differential, Automated (05/31/2021 8:48 AM EDT) Neutrophils % 57.6 % [facility] Neutr Abs (ANC) 6.04 1.70 - 6.10 x10(3)/ L [facility] Lymphocytes % 32.5 % [facility] Lymphocytes Abs 3.4(H) 0.9 - 3.2 x10(3)/[facility] Monocytes % 6.3 % [facility] Monocyte Abs 0.7 0.3 - 0.9 x10(3)/[facility] Eosinophils % 2.2 % [facility] Eosinophils Abs 0.2 0.0 - 0.4 x10(3)/[facility] Basophils % 1.0 % [facility] Basophils Abs 0.1 0.0 - 0.1 x10(3)/[facility] Immature Gran % 0.40 % [facility] Comment: Immature granulocytes(IG's)percentage and absolute count will include metamyelocytes, myelocytes, and promyelocytes. Blood smears from CBCs yielding IG's will be scanned manually for concordance. If this scan disagrees with the automated IG or if promyelocytes are noted, a manual differential will be performed. Zahra Gran Abs 0.04 0.00 - 0.04 x10(3)/ L [facility] Blood 05/31/2021 8:48 AM EDT 05/31/2021 8:54 AM EDT Narrative Resulting Agency Comment Spec In Lab Judith Reinoso MD HEMATOLOGY ORDERA BLES Performing Organization Address City/[facility]/ZIP Co de Phone Number [facility] [place] [address] * (ABNORMAL) Hemogram (05/31/2021 8:48 AM EDT) WBC 10.5(H) 4.0 - 9.5 x10(3)/[facility]ORATORY RBC 5.05 4.00 - 5.21 x10(6)/[facility] Hemoglobin 13.9 11.7 - 15.5 gm/dL [facility] Hematocrit 43.7 35.7 - 45.8 % [facility] MCV 86.5 82.6 - 94.4 fL [facility] MCH 27.5 27.1 - 32.0 pg [facility] MCHC 31.8 31.7 - 35.0 gm/dL [facility] Platelets 282 145 - 357 x10(3)/[facility] LABORATORY RDWSD 41.1 37.0 - 46.0 [facility]ORY RDWCV 13.2 11.5 - 14.1 % [facility] MPV 10.4 7.6 - 12.9 [facility] nRBC % Auto 0.0 % [facility] nRBC Abs Auto 0.000 0.000 - 0.000 x10(3)/[facility] Blood 05/31/2021 8:48 AM EDT 05/31/2021 8:54 AM EDT Narrative Resulting Agency Comment Spec In Lab Judith Reinoso MD HEMATOLOGY ORDERA BLES [facility] [place] [address] * (ABNORMAL) Hemoglobin A1c (05/31/2021 8:48 AM EDT) Hemoglobin A1C 7.5(H) 4.3 - 5.6 % [facility] Comment: Reference Range: 4.3 - [...] 36: Suppl. 1, S67-74 Est Avg Gluc 168 mg/dL AMEE GUERRA [facility] Comment: eAG equivalents for [...] into estimated average glucose values. ??Diabetes Care 2008:31(8):1524-2401. Blood 05/31/2021 8:48 AM EDT 05/31/2021 8:54 AM EDT Narrative Resulting Agency Comment Spec In Lab Judith Reinoso MD CHEMISTRY ORDERAB LES [facility] [place] [address] * (ABNORMAL) TSH (05/31/2021 8:48 AM EDT) TSH 4.31(H) 0.27 - 4.20 mcIU/mL [facility] Comment: Reference Interval (mcIU/mL): Females: ??First Trimester: 0.23-3.88 ??Second Trimester: 0.22-3.90 ??Third Trimester: 0.44-4.66 Blood 05/31/2021 8:48 AM EDT 05/31/2021 8:54 AM EDT Narrative Resulting Agency Comment Spec In Lab Judith Reinoso MD CHEMISTRY ORDERAB LES [facility] [place] [address] * (ABNORMAL) Comprehensive metabolic panel (non-fasting) (05/31/2021 8:48 AM EDT) Glucose Lvl 140 65 - 199 mg/dL [facility] Comment:Diabetes: >=200 mg/d L plus symptoms BUN 10 8 - 18 mg/dL [facility] Creatinine 0.51(L) 0.70 - 1.20 mg/dL [facility] Sodium 144 135 - 145 mmol/L [facility] Potassium 4.8 3.5 - 5.0 mmol/L [facility] Comment: Please note: ??Patients with WBC >100,000 may have falsely elevated Potassium levels. ??For accurate Potassium quantification in these patients send serum separator tube (gold top) for subsequent determinations. ??Contact the Clinical Chemistry Laboratory if there are any questions. Chloride 105 98 - 107 mmol/L [facility] CO2 29 22 - 31 mmol/L [facility] Anion Gap 10 5 - 15 mmol/L [facility] Calcium 9.9 8.5 - 10.5 mg/dL [facility] Total Protein 7.5 6.1 - 8.0 gm/dL [facility] Albumin 4.4 3.2 - 5.2 gm/dL [facility] AST 15 0 - 30 unit/L [facility] ALT 19 0 - 30 unit/L [facility] Alk Phos 106(H) 35 - 105 unit/L [facility] Total Bilirubin 0.3 0.2 - 1.3 mg/dL [facility] Estimated GFR 107 >=60 mL/min/1. 73 m?? [facility] Comment: This patient? s estimated glomerular filtration rate (eGFR) is between 107 mL/min/1.73 m2 (patients with less muscle mass) and 124 mL/min/1.73 m2 (patients with more muscle mass) as determined by the CKD-EPI equation. Assessment of eGFR is not appropriate when creatinine concentrations are rapidly changing. For clinical decisions where creatinine clearance will affect therapy, a 24-hour urine creatinine clearance may be advised. Assignment of CKD stage 1 - 5 for patients with an eGFR near the transition point between stages may be based on clinical assessment of muscle mass and symptoms in addition to eGFR. Blood 05/31/2021 8:48 AM EDT 05/31/2021 8:54 AM EDT Narrative Resulting Agency Comment Spec In Lab Judith Reinoso MD CHEMISTRY ORDERAB LES [facility] [place] [address] * Lipid Panel (Reflex Direct LDL) (05/31/2021 8:48 AM EDT) Chol, Total 214 mg/dL [facility] Comment: Lower Risk: <200 mg/dL Average Risk: 200-239 mg/dL Higher Risk: >na=431 mg/dL Triglycerides 184 mg/dL [facility] Comment: Average Risk/Lower Risk: <150 mg/dL Borderline High Risk: 150-199 mg/dL High Risk: 200-499 mg/dL Very High Risk: >lr=933 mg/dL HDL 58 mg/dL [facility] Comment: Males: ?? Higher Risk: <40 mg/dL Females: ?? Higher Risk: <50 mg/dL LDL Cholesterol 119 mg/dL [facility] Comment: Lowest Risk: <100 mg/dL Lower Risk: 100-129 mg/dL Borderline High Risk: 130-159 mg/dL High Risk: 160-189 mg/dL Very High Risk: >dd=989 mg/dL Chol/HDL Ratio 3.7 ratio [facility] Lipid Interpretation See Note [facility] Comment: Lipid management should be guided by a patient? s ASCVD risk, goals and preferences. ACC/AHA Guidelines recommend high intensity statin if clinical ASCVD or LDL greater than or equal to 190 mg/dL. http://Uni2.com/HAR-MGS-Pebghbvca Adults aged 40-75 with LDL 70-189 mg/dL should have their 10 year ASCVD risk estimated with the ACC/AHA ASCVD risk estimator and drafter http://tools.acc.org/GTDCH-Pgqc-Whjvwscah/ Statin should be discussed if risk greater [...] critical component of ASCVD risk reduction. Blood 05/31/2021 8:48 AM EDT 05/31/2021 8:54 AM EDT Narrative Resulting Agency Comment Spec In Lab Judith Reinoso MD CHEMISTRY ORDERAB LES [facility] [place] [address] * Vitamin D, 25-Hydroxy (05/31/2021 8:48 AM EDT) 25-OH Vit D Total 39 21 - 100 ng/mL [facility] 25-OH Vit D Interp Sufficient [facility] Blood 05/31/2021 8:48 AM EDT 05/31/2021 8:54 AM EDT Narrative Resulting Agency Comment Spec In Lab Judith Reinoso MD CHEMISTRY ORDERAB LES Performing Organization Address City/[facility]/ZIP Co de Phone Number [facility] [place] [address] * Iron and TIBC (05/31/2021 8:48 AM EDT) Iron 77 30 - 150 mcg/dL [facility] TIBC 295 250 - 450 mcg/dL [facility] Iron Saturation 26 20 - 50 % [facility] Blood 05/31/2021 8:48 AM EDT 05/31/2021 8:54 AM EDT Narrative Resulting Agency Comment Spec In Lab Judith Reinoso MD CHEMISTRY ORDERAB LES Performing Organization Address [facility] Co de Phone Number [facility] [place] [address] * (ABNORMAL) Vitamin B12 (05/31/2021 8:48 AM EDT) Vitamin B-12 1,960(H) 232 - 1,245 pg/mL [facility] Blood 05/31/2021 8:48 AM EDT 05/31/2021 8:54 AM EDT Narrative Resulting Agency Comment Spec In Lab Judith Reinoso MD CHEMISTRY ORDERAB LES Performing Organization Address City/[facility]/ZIP Co de Phone Number [facility] [place] [address] * Folate, serum (05/31/2021 8:48 AM EDT) Folate Lvl >20.0 4.8 - 24.2 ng/mL [facility] Blood 05/31/2021 8:48 AM EDT 05/31/2021 8:54 AM EDT Narrative Resulting Agency Comment Spec In Lab Randee M [place] LARRY CHEMISTRY ORDERA BLES Performing Organization Address City/[facility]/ZIP Co de Phone Number [facility] [address] * PTH (05/31/2021 8:48 AM EDT) PTH 50 15 - 65 pg/mL [facility] Blood 05/31/2021 8:48 AM EDT 05/31/2021 8:54 AM EDT Narrative Resulting Agency Comment Spec In Lab Randee Irwinliher LARRY CHEMISTRY ORDERA BLES Performing Organization Address [facility] Co de Phone Number [facility] [address] documented in this encounter Visit Diagnoses Diagnosis Status post bariatric surgery Bariatric surgery status Intestinal malabsorption, unspecified type Disorder of iron metabolism Other disorders of iron metabolism Type 2 diabetes mellitus, uncontrolled, with neuropathy Type II or unspecified type diabetes mellitus with neurological manifestations, uncontrolled Vitamin D deficiency Unspecified vitamin D deficiency Status post gastric bypass for obesity Bariatric surgery status Dyslipidemia Other and unspecified hyperlipidemia Chronic fatigue Other malaise and fatigue documented in this encounter Care Teams Logistics Technician Relationship Specialty Start Date End Date Ruth Munoz APRN [address] [place] [address] PCP - General Family Medicine 02/05/19 documented as of this encounter
--- OUTSIDE RECORDS SUMMARY | 2024-05-15 11:08 | XMS_ITS | Encounter Summary ---
Author Organization [facility] [place] [address] Care Team Providers Care Financial Internship Name Role Phone MunozRuth jerome Lilibeth JUAREZ Primary Care Provider + Reason for Visit * Reason Comments Medication Refill Encounter Details Date Type Department Care Team (Late st Contact Info) Description 04/11/2021 Refill [place] [phone] Judith Reinoso MD [facility] [place] [address] Social History Tobacco Use Types Packs/Day Years [...] AM EDT TH Visit (TeleHealth) [place] [phone] Wyatt Higgins MD [facility] [place] [address] documented as of this encounter Visit Diagnoses Not on filedocumented in this encounter Care Teams Financial Internship Relationship Specialty Start Date End Date Ruth Munoz, LARRY [address] [place] [address] PCP - General Family Medicine 02/05/19 documented as of this encounter
--- OUTSIDE RECORDS SUMMARY | 2024-05-15 11:08 | XMS_ITS | Encounter Summary ---
[place] [address] Care Team Providers Care Form Drafter Name Role Phone Ruth Munoz Lilibeth JUAREZ Primary Care Provider + Reason for Visit * Reason Comments Medication Management Encounter Details Date Type Department Care Team (Late st Contact Info) Description 02/26/2020 Specialty Pharmacy [place] [address] Keena Mccoy RPH Social History Tobacco Use Types Packs/Day [...] as of this encounter Progress Notes * Keena Mccoy RPH - 02/26/2020 12:01 PM EDT Martha Benoit 2--64 called on Monday02/24/20 regarding her Humira and requested we change the Humira pens to the syringe formulation. The patient doesn???t like using auto-injectors because the injection is too painful for her. I requested this change to Dr. Gilliland in [facility] and hedenied this request because of a family history of IV drug use. I relayed this message to the patient and she told me she would break open the pens if she doesn???t receive syringes. I advised against this and referred her to the injection tutorial video on the tub tender???s website. She still insisted that she would break open the pens. I asked her to call the provider???s office to follow up with the provider, which she did. However, based on the telephone encounter in [facility], it didn???t seem that she mentioned she would be breaking open the pens to the nurse. At that point I messaged both the nurse and the provider to loop them in on what the patient had told me. His response was that if she refuses, she may be not an appropriate patient for Humira. I have reached back out to the provider to ask if someone from his office would be able to follow up with the patient. documented in this encounter Plan of Treatment Upcoming Encounters Date Type Department Care Team (Late st Contact Info) Description 02/19/2025 9:00 AM EDT TH Visit (TeleHealth) [place] [address] [facility] [place] [address] documented as of this encounter Visit Diagnoses Not on filedocumented in this encounter Care Teams Form Drafter Relationship Specialty Start Date End Date Ruth Munoz APRN [address] [place] [address] PCP - General Family Medicine 02/05/19 documented as of this encounter
--- OUTSIDE RECORDS SUMMARY | 2024-05-15 11:08 | XMS_ITS | Encounter Summary ---
Author Organization [facility] [place] [address] Care Team Providers Care General Adjuster Name Role Phone AlexanderRuth Lilibeth [facility] Primary Care Provider + Encounter Details Date Type Department Care Team (Late st Contact Info) Description 09/28/2020 External Results [place] [phone] Randee López NAILER MACHINE [facility] [place] [address] Social History Tobacco Use Types Packs/Day Years [...] AM EDT TH Visit (TeleHealth) [place] [phone] Wyatt Higgins MD [facility] [place] [address] documented as of this encounter Procedures Procedure Name Priority Date/Time Associated Diagnosis Comments LAB SCAN Routine 09/24/2020 documented in this encounter Results * Scan Doc: Lab (09/24/2020) Randee López APRN MEDIA MGR SCAN E XT ORDR/RSLT documented in this encounter Visit Diagnoses Not on filedocumented in this encounter Care Teams General Adjuster Relationship Specialty Start Date End Date Ruth Munoz APRN [address] [place] [address] PCP - General Family Medicine 02/05/19 documented as of this encounter
--- OUTSIDE RECORDS SUMMARY | 2024-05-15 11:08 | XMS_ITS | Encounter Summary ---
[place] [address] Care Team Providers Care Winding Machine Operator Name Role Phone Ruth Munoz LARRY Primary Care Provider + Reason for Visit * Reason Comments Medication Management Patient Education Encounter Details Date Type Department Care Team (Late st Contact Info) Description 06/08/2020 Specialty [place]acy [place] [address] Thais Bernardo, [facility] Social History Tobacco Use [...] as of this encounter Progress Notes * Thais Bernardo [facility] - 06/08/2020 2:04 PM EDT Clinical Management Plan: Refill Specialty Pharmacy Consultation; Thais Bernardo [facility] Comprehensive Medication Management (CMM) Martha Benoit Ms. Martha Benoit is a 54 y.o. (1965) female [...] disease management, targeted medication review Referred By: provider Recipient: beneficiary Provider: plan sponsor pharmacist Visit Type: [facility] Follow-up Method of Contact: by telephone Cognitive Ability: good Cognitive Impairment Status Verified this Year: no Allergies and Drug intolerance: No Known Allergies Medication Reconciliation Discrepancies (compared to [facility] med list) -none New medications: no New [...] at the appointment and that [facility] is providing recommendations (summary located at top of note) for provider review and follow up. Thais Bernardo RPH 06/08/20 2:05 PM documented in this encounter Plan of Treatment Upcoming Encounters Date Type Department Care Team (Late st Contact Info) Description 02/19/2025 9:00 AM EDT TH Visit (TeleHealth) [place] [address] Wyatt Higgins MD [facility] [place] [address] documented as of this encounter Visit Diagnoses Not on filedocumented in this encounter Care Teams Winding Machine Operator Relationship Specialty Start Date End Date Ruth Munoz, HELICOPTER PILOT INSTRUCTOR [address] [place] [address] PCP - General Family Medicine 02/05/19 documented as of this encounter
--- OUTSIDE RECORDS SUMMARY | 2024-05-15 11:08 | XMS_ITS | Encounter Summary ---
Author Organization [facility] [place] [address] Care Team Providers Care Roper Operator Name Role Phone MunozRuth jerome Lilibeth JUAREZ Primary Care Provider + Reason for Visit * Reason Onset Date Comments TeleHealth 05/18/2021 Encounter Details Date Type Department Care Team (Late st Contact Info) Description 05/18/2021 [place] [address] Wyatt Higgins MD [facility] [place] [address] TeleHealth Social History Tobacco Use Types Packs/Day Years [...] encounter Miscellaneous Notes * Telephone Encounter - Elva Tirado RN - 05/18/2021 9:04 AM EDT Spoke to this patient??by phone to review their medications and allergies prior to their upcoming tele-appointment with the Neurology provider. ??Medications and allergies reviewed, verified and updated as needed. ? documented in this encounter Plan of Treatment Upcoming Encounters Date Type Department Care Team (Late st Contact Info) Description 02/19/2025 9:00 AM EDT TH Visit (TeleHealth) [place] [address] Wyatt Higgins MD [facility] [place] [address] documented as of this encounter Visit Diagnoses Not on filedocumented in this encounter Care Teams Roper Operator Relationship Specialty Start Date End Date Ruth Munoz, GATEMAN [address] [place] [address] PCP - General Family Medicine 02/05/19 documented as of this encounter
--- OUTSIDE RECORDS SUMMARY | 2024-05-15 11:08 | XMS_ITS | Encounter Summary ---
Author Organization [facility] [place] [address] Care Team Providers Care Instructor Physical Name Role Phone MunozRuth jerome Lilibeth JUAREZ Primary Care Provider + Encounter Details Date Type Department Care Team (Late st Contact Info) Description 05/31/2021 10:00 AM EDT Office [place] [address] Judith Serrano MD [facility] [place] [address] Hypothyroidism, acquired; Type 2 diabetes, controlled, with neuropathy; History of gastric bypass; Vitamin D deficiency Social History Tobacco Use [...] Sign Reading Time Taken Comments Blood Pressure 130/63 05/31/2021 9:38 AM EDT Pulse 84 05/31/2021 9:38 AM EDT Temperature 36.1 ??C (97 ??F) 05/31/2021 9:38 AM EDT Respiratory Rate - - Oxygen Saturation 98% 05/31/2021 9:38 AM EDT Inhaled Oxygen Concentration - - Weight 82.8 kg (182 lb 8 oz) 05/31/2021 9:38 AM EDT Height 157.5 cm (5' 2) 05/31/2021 9:38 AM EDT Body Mass Index 33.38 05/31/2021 9:38 AM EDT documented in this encounter Patient Instructions * Patient Instructions* Judith Serrano MD - 05/31/2021 10:00 AM EDT Recent Results (from the past 24 hour(s)) PTH Result Value Ref Range PTH 50 15 - 65 pg/mL Iron and TIBC Result Value Ref Range Iron 77 30 - 150 mcg/dL TIBC 295 250 - 450 mcg/dL Iron Saturation 26 20 - 50 % Lipid Panel (Reflex Direct LDL) Result Value Ref Range Chol, Total 214 mg/dL Triglycerides 184 mg/dL HDL 58 mg/dL LDL Cholesterol 119 mg/dL Chol/HDL Ratio 3.7 ratio Lipid Interpretation See Note Comprehensive metabolic panel (non-fasting) Result Value Ref Range Glucose Lvl 140 65 - 199 mg/dL BUN 10 8 - 18 mg/dL Creatinine 0.51 (L) 0.70 - 1.20 mg/dL Sodium 144 135 - 145 mmol/L Potassium 4.8 3.5 - 5.0 mmol/L Chloride 105 98 - 107 mmol/L CO2 29 22 - 31 mmol/L Anion Gap 10 5 - 15 mmol/L Calcium 9.9 8.5 - 10.5 mg/dL Total Protein 7.5 6.1 - 8.0 gm/dL Albumin 4.4 3.2 - 5.2 gm/dL AST 15 0 - 30 unit/L ALT 19 0 - 30 unit/L Alk Phos 106 (H) 35 - 105 unit/L Total Bilirubin 0.3 0.2 - 1.3 mg/dL Estimated GFR 107 >=60 mL/min/1.73 m?? TSH Result Value Ref Range TSH 4.31 (H) 0.27 - 4.20 mcIU/mL Hemoglobin A1c Result Value Ref Range Hemoglobin A1C 7.5 (H) 4.3 - 5.6 % Est Avg Gluc 168 mg/dL Hemogram Result Value Ref Range WBC 10.5 (H) 4.0 - 9.5 x10(3)/mcL RBC 5.05 4.00 - 5.21 x10(6)/mcL Hemoglobin 13.9 11.7 - 15.5 gm/dL Hematocrit 43.7 35.7 - 45.8 % MCV 86.5 82.6 - 94.4 fL MCH 27.5 27.1 - 32.0 pg MCHC 31.8 31.7 - 35.0 gm/dL Platelets 282 145 - 357 x10(3)/mcL RDWSD 41.1 37.0 - 46.0 fL RDWCV 13.2 11.5 - 14.1 % MPV 10.4 7.6 - 12.9 fL nRBC % Auto 0.0 % nRBC Abs Auto 0.000 0.000 - 0.000 x10(3)/mcL Differential, Automated Result Value Ref Range Neutrophils % 57.6 % Neutr Abs (ANC) 6.04 1.70 - 6.10 x10(3)/mcL Lymphocytes % 32.5 % Lymphocytes Abs 3.4 (H) 0.9 - 3.2 x10(3)/mcL Monocytes % 6.3 % Monocyte Abs 0.7 0.3 - 0.9 x10(3)/mcL Eosinophils % 2.2 % Eosinophils Abs 0.2 0.0 - 0.4 x10(3)/mcL Basophils % 1.0 % Basophils Abs 0.1 0.0 - 0.1 x10(3)/mcL Immature Gran % 0.40 % Zahra Gran Abs 0.04 0.00 - 0.04 x10(3)/mcL Plan: 1. Medication: To start levothyroxine 25 mcg daily on empty stomach at least 30 mins before breakfast. Target TSH 0.5-3.0 for her weight and fatigue. Adjustment of diabetes treatment regime: To continue 70/30 mix 10-12u 3x/day to keep BG down to 100-180 range [...] D 50,000 iu weekly and 2 of Paige MVI with iron which contains iron (she [...] this patient while on insulin 4. Lab: To recheck lab every 3 months with PCP for her A1c, TSH at [facility] and will let her know the results during the interim. 5. RTC: Next visit in 6-12 months (for 6-y post gastric bypass) or earlier needed. Will check annual lab before next visit for HbA1c, CBC, CMP, lipids, TSH, 25vitamin D, B12, iron/TIBC and annual urine microalbumin/Cr. Judith Serrano MD, PhD, FACE, FACP documented in this encounter Progress Notes * Judith Serrano MD - 05/31/2021 10:00 AM EDT Endocrine Clinic Name: Jo Jones : 1965 Date: 05/31/2021 PCP: Ruth Munoz APRN Reason for visit: Follow-up Type 2 diabetes s/p bariatric surgery 5 yrs ago (Dr. Mai on 01/04/16) with wt loss of 60-75 bs since the surgery and BMI 29-32 range. Lab today showed new hypothyroid with TSH 4.31 today. HPI: Jo Jones is a 55 y.o. lady : Diabetes treatment regimen: 70/30 mix pen 10-12u in AM, 5u lunch, 10-12u for dinner 3x/day Novolog sliding scale p.r.n for correction of high BG>180 Metformin 500 mg 3x/day (1,500 mg/day) GlipizideER 10 mg bid Ivokana 300 mg qd FSBG: average 160 over the past 2 weeks, typically ranging between 100s- 200s mg/dl Most recent HA1c: 7.5% on 05/31/21, 7.8% on 07/02/20, 6.8% on 02/05/20, 7.3% on 07/11/19, 7.5% on 02/12/18, 6.8% on 08/10/17, 7.6% on 01/1717, 7.4% on 07/05/16, 8.4% on 01/05/16, 11/03/15, 8.5% on 11/03/15). Hypoglycemia during the interval time: [...] weigh 240s-250s lbs before gastric bypass in 2016. She tried to cut back on carb so she can reduce insulin 3x/day to 2x/day for her 70/30 mix insulin. She cannot exercise due to foot drop bilaterally and using walker. A1c is trending up from 6.8% to 7.8% last fall and now back down to 7.5% today. She has a new PCP who keeps close care of her medical issues and tried not to give her anti-fungal medications often toprevent resistant issue. She will simply need more insulin now to keep BG under control <200 allthe time to help prevent yeast infection and we will send a new prescription for her to use more insulin (her insurance covered for mix 70/30 insulin well). She is now ~5-6year post bariatric surgery and better from her foot drop/peripheral neuropathy. Shewants to lose wt further as this will help reduce insulin resistance, especially when she could nottolerate metformin at a higher dose well (ok with 500 mg tid but not a full dose of 1,000 mg bid). She also had GI side effects with byetta or bydureon in the past. Her vitamin D was better, up from 18 to 28-29 and then 70 (nl 30-100) so she already reduced vit D 50,000 iu 2x/week to weekly since Jul 2017=> 44 in fall 2018 and is pending for lab results at [facility]. She has been taking Paige multivitamin to 2 tab daily with normal iron levels aswell. Denies any changes in vision, no CP, SOB, GI issues, leg swelling or foot ulcer but still having some thin scalp hairs. She already had quite normal dilated eye exam except for mild cataract ou. Psoriasis is getting worse this year in her extremities. She has annual eye check up next [...] to Visit Medication Sig Dispense Refill ??? Sod Phos [place]-Sod Phos Dibasic (OsmoPrep) 1.5 gram Tablet Take 4 tablets with 8 ounces of waterevery 15 minutes x 5 doses the night before colonoscopy then the morning of the colonoscopy take 4 tablets with 8 ounces of water every 15 minutes x 3 doses 32 tablet 0 ??? metFORMIN XR (Glucophage XR) 500 mg Tablet Sustained Release 24 hr TAKE ONE TABLET BY MOUTH THREE TIMES A DAY WITH MEALS 270 tablet 3 ??? UNABLE TO FIND Med Name: Paige vitamins take one tablet by mouth twice daily ??? baclofen (LIORESAL) 20 mg Tablet Take 20 mg by mouth 4 times daily. ??? cyanocobalamin, vitamin B-12, 500 mcg Tablet TAKE ONE TABLET BY MOUTH EVERY DAY ??? insulin aspart protamine-insulin aspart 70/30 (novoLOG Mix 70-30 FlexPen) Insulin Pen Inject 20-30 units subcutaneously 3 times daily 60 mL 3 ??? canagliflozin (Invokana) 300 mg Tablet Take 300 mg by mouth daily. 90 tablet 3 ??? fluconazole (Diflucan) 150 mg Tablet Take 1 tablet by mouth as needed. Once per day 3 tablet 3 ??? freestyle lite strips 1 each by Other route 4 times daily. DX: E11.40, E11.65 400 each 3 ??? glipiZIDE XL (Glucotrol XL) 10 mg Tablet Extended Rel 24 hr TAKE ONE TABLET BY MOUTH TWICE A DAY 180 tablet 3 ??? ergocalciferoL, vitamin D2, (vitamin D2) 50,000 unit Capsule TAKE ONE CAPSULE BY MOUTH EVERY WEEK 12 capsule 3 ??? secukinumab 150 mg/mL Pen Injector Inject 300 mg subcutaneously every 28 days. 2 Pen 11 ??? omeprazole (PRILOSEC) 20 mg Capsule, Delayed Release(E.C.) TAKE ONE CAPSULE BY MOUTH EVERY DAY 30 MINUTES PRIOR TO BREAKFAST ON AN EMPTY STOMACH 90 capsule 3 ??? RESTASIS 0.05 % Dropperette Place 1 drop into both eyes 2 times daily. ??? nystatin (MYCOSTATIN) Powder 1 Application as [...] skin every 12 hours as needed. ??? cyclobenzaprine (Flexeril) 10 mg Tablet Take 10 mg by mouth nightly. No current facility-administered medications on file prior [...] of Exercise per Session: Not on file FAMILY HISTORY Family History Problem Relation Age of Onset ??? Diabetes Mother ??? Diabetes Father ??? Diabetes Other ??? High Cholesterol Other ??? Hypertension Other ??? Stroke Other ??? Obesity Other ??? Psoriasis Other ??? * Other congenital malformation in her son/kidney stone Physical exam BP 130/63 Pulse 84 Temp 36.1 ??C (97 ??F) (Temporal) Ht 157.5 cm (5' 2) Wt 82.8 kg (182 lb8 oz) SpO2 98% BMI 33.38 kg/m?? Appearance: Non-obese, pleasant, NAD, still having slight thin scalp hairs, generalized psoriasis. HEENT: PERRLA, EOMI Neck: no goiter or lymphadenopathy Cardiac: normal S1, S2, no murmur Chest: CTA, no wheeze or crackle. Abdomen: benign, NT, ND Ext: no pitting edema + small left foot ulcer - healing slowly Neuro: mild weakness, still having foot drops walking slowly with walker, depressed reflexes Skin: + dry skin, lots of active psoriatic rash in her LEs Recent labs [...] 400 ng/mL 34 Heavy Metals Unknown ... Phone note 07/08/20: We tapered her 70/30 mix tid to bid for A1c 6.8 % on 02/05/20 (was 7.3 on 07/11/19) => then noted higher BG trend, ok to resume 70/30mix TID as previously as her A1c was higher at 7.8% (07/02/20). We tried to cut back insulin to help her not to gain wt but ok to resume 15-20u TID for high BG. Recent Results (from the past 24 hour(s)) PTH Result Value Ref Range PTH 50 15 - 65 pg/mL Iron and TIBC Result Value Ref Range Iron 77 30 - 150 mcg/dL TIBC 295 250 - 450 mcg/dL Iron Saturation 26 20 - 50 % Lipid Panel (Reflex Direct LDL) Result Value Ref Range Chol, Total 214 mg/dL Triglycerides 184 mg/dL HDL 58 mg/dL LDL Cholesterol 119 mg/dL Chol/HDL Ratio 3.7 ratio Lipid Interpretation See Note Comprehensive metabolic panel (non-fasting) Result Value Ref Range Glucose Lvl 140 65 - 199 mg/dL BUN 10 8 - 18 mg/dL Creatinine 0.51 (L) 0.70 - 1.20 mg/dL Sodium 144 135 - 145 mmol/L Potassium 4.8 3.5 - 5.0 mmol/L Chloride 105 98 - 107 mmol/L CO2 29 22 - 31 mmol/L Anion Gap 10 5 - 15 mmol/L Calcium 9.9 8.5 - 10.5 mg/dL Total Protein 7.5 6.1 - 8.0 gm/dL Albumin 4.4 3.2 - 5.2 gm/dL AST 15 0 - 30 unit/L ALT 19 0 - 30 unit/L Alk Phos 106 (H) 35 - 105 unit/L Total Bilirubin 0.3 0.2 - 1.3 mg/dL Estimated GFR 107 >=60 mL/min/1.73 m?? TSH Result Value Ref Range TSH 4.31 (H) 0.27 - 4.20 mcIU/mL Hemoglobin A1c Result Value Ref Range Hemoglobin A1C 7.5 (H) 4.3 - 5.6 % Est Avg Gluc 168 mg/dL Hemogram Result Value Ref Range WBC 10.5 (H) 4.0 - 9.5 x10(3)/mcL RBC 5.05 4.00 - 5.21 x10(6)/mcL Hemoglobin 13.9 11.7 - 15.5 gm/dL Hematocrit 43.7 35.7 - 45.8 % MCV 86.5 82.6 - 94.4 fL MCH 27.5 27.1 - 32.0 pg MCHC 31.8 31.7 - 35.0 gm/dL Platelets 282 145 - 357 x10(3)/mcL RDWSD 41.1 37.0 - 46.0 fL RDWCV 13.2 11.5 - 14.1 % MPV 10.4 7.6 - 12.9 fL nRBC % Auto 0.0 % nRBC Abs Auto 0.000 0.000 - 0.000 x10(3)/mcL Differential, Automated Result Value Ref Range Neutrophils % 57.6 % Neutr Abs (ANC) 6.04 1.70 - 6.10 x10(3)/mcL Lymphocytes % 32.5 % Lymphocytes Abs 3.4 (H) 0.9 - 3.2 x10(3)/mcL Monocytes % 6.3 % Monocyte Abs 0.7 0.3 - 0.9 x10(3)/mcL Eosinophils % 2.2 % Eosinophils Abs 0.2 0.0 - 0.4 x10(3)/mcL Basophils % 1.0 % Basophils Abs 0.1 0.0 - 0.1 x10(3)/mcL Immature Gran % 0.40 % Zahra Gran Abs 0.04 0.00 - 0.04 x10(3)/mcL Assessment: 55 y.o. lady with better BG and A1c down to 7.5% today on 70/30 mix, Invokana, metformin, glipizidefor her Diabetes Type 2. She had gastric bypass surgery ~ 5- 6 year ago with significant wt loss down 60-85 lbs from 250 to 179-185 lbs today with BMI 29-32 range. A1c has been reasonable 6.8-7.8% range over the past 3 yrs on very low dose insulin 70/30 mix 10-12u TID lately with occasional use of sl iding scale. She is still having good c-peptide 2.9 from her own insulin production which is good news but still not enough for her body need due to underlying insulin resistance. She is pleased withher wt & A1c results and wants to [...] then 70 in Jul 2017 => 44 in Jun 2019), on vitamin D 50,000 iu 2x/wk -> weekly per bariatric team. Her B12 was trending down from 400s to 300s and we already gave her B12 injection x1 on 03/09/16 as a booster dose for her neuropathy and follow-up lab showed normal B12 at 448 in => 1,870in Jun 2019=>1,487 in Jan 2020, so she already reduced B12 to every other day since then. Plan: 1. Medication: To start levothyroxine 25 mcg daily on empty stomach at least 30 mins before breakfast. Target TSH 0.5-3.0 for her weight and fatigue. Adjustment of diabetes treatment regime: To continue 70/30 mix 10-12u 3x/day to keep BG down to 100-180 range [...] D 50,000 iu weekly and 2 of Paige MVI with iron which contains iron (she [...] this patient while on insulin 4. Lab: To recheck lab every 3 months with PCP for her A1c, TSH at [facility] lab and will let her know the results during the interim. 5. RTC: Next visit in 6-12 months (for 6-y post gastric bypass) or earlier needed. Will [...] therapeutic decisions, and coordination of care. Judith Serrano MD, PhD, FACE CC: Ruth Munoz APRN documented in this encounter Miscellaneous Notes * Addendum Note - Judith Serrano MD - 05/31/2021 10:00 AM EDTAddended by: JUDITH SERRANO on: 04/05/2022 11:28 PM Modules accepted: Orders documented in this encounter Plan of Treatment Upcoming Encounters Date Type Department Care Team (Late st Contact Info) Description 02/19/2025 9:00 AM EDT TH Visit (TeleHealth) [place] [address] Wyatt Higgins MD [facility] [place] [address] documented as of this encounter Results * Iron and TIBC (06/07/2022 11:47 AM EDT) Iron 83 30 - 150 mcg/dL [facility] TIBC 305 250 - 450 mcg/dL [facility] Iron Saturation 27 20 - 50 % [facility] Blood 06/07/2022 11:4 7 AM EDT 06/07/2022 11:54 AM EDT Narrative Resulting Agency Comment Spec In Lab Judith Serrano MD CHEMISTRY ORDERAB LES [facility] [place] [address] * (ABNORMAL) Vitamin B12 (06/07/2022 11:47 AM EDT) Vitamin B-12 >2,000(H) 232 - 1,245 pg/mL [facility] Blood 06/07/2022 11:4 7 AM EDT 06/07/2022 11:54 AM EDT Narrative Resulting Agency Comment Spec In Lab Judith Serrano MD CHEMISTRY ORDERAB LES [facility] [place] [address] * Vitamin D, 25-Hydroxy (06/07/2022 11:47 AM EDT) 25-OH Vit D Total 36 21 - 100 ng/mL [facility] 25-OH Vit D Interp Sufficient [facility] Blood 06/07/2022 11:4 7 AM EDT 06/07/2022 11:54 AM EDT Narrative Resulting Agency Comment Spec In Lab Judith Serrano MD CHEMISTRY ORDERAB LES [facility] [place] [address] * Lipid Panel (Reflex Direct LDL) (06/07/2022 11:47 AM EDT) Chol, Total 207 mg/dL [facility] Comment: Lower Risk: <200 mg/dL Average Risk: 200-239 mg/dL Higher Risk: >wx=746 mg/dL Triglycerides 163 mg/dL [facility] Comment: Average Risk/Lower Risk: <150 mg/dL Borderline High Risk: 150-199 mg/dL High Risk: 200-499 mg/dL Very High Risk: >fv=976 mg/dL HDL 50 mg/dL [facility] Comment: Males: ?? Higher Risk: <40 mg/dL Females: ?? Higher Risk: <50 mg/dL LDL Cholesterol 124 mg/dL [facility] Comment: Lowest Risk: <100 mg/dL Lower Risk: 100-129 mg/dL Borderline High Risk: 130-159 mg/dL High Risk: 160-189 mg/dL Very High Risk: >jk=317 mg/dL Chol/HDL Ratio 4.1 ratio [facility] Lipid Interpretation See Note [facility] Comment: Lipid management should be guided by a patient? s ASCVD risk, goals and preferences. ACC/AHA Guidelines recommend high intensity statin if clinical ASCVD or LDL greater than or equal to 190 mg/dL. http://tinyurl.com/PVB-BIX-Cbxdsptpb Adults aged 40-75 with LDL 70-189 mg/dL should have their 10 year ASCVD risk estimated with the ACC/AHA ASCVD risk transfill technician http://tools.acc.org/MAKCQ-Dwif-Mohaloksf/ Statin should be discussed if risk greater [...] Resulting Agency Comment Spec In Lab Judith Serrano MD CHEMISTRY ORDERAB LES [facility] [place] [address] * (ABNORMAL) Comprehensive metabolic panel (non-fasting) (06/07/2022 11:47 AM EDT) Glucose Lvl 74 65 - 199 mg/dL [facility] Comment:Diabetes: >=200 mg/d L plus symptoms BUN 10 8 - 18 mg/dL [facility] Creatinine 0.40(L) 0.70 - 1.20 mg/dL [facility] Sodium 144 135 - 145 mmol/L [facility] Potassium 3.8 3.5 - 5.0 mmol/L [facility] Comment: Please note: ??Patients with WBC >100,000 may have falsely elevated Potassium levels. ??For accurate Potassium quantification in these patients send serum separator tube (gold top) for subsequent determinations. ??Contact the Clinical Chemistry Laboratory if there are any questions. Chloride 106 98 - 107 mmol/L [facility] CO2 26 22 - 31 mmol/L [facility] Anion Gap 12 5 - 15 mmol/L [facility] Calcium 9.4 8.5 - 10.5 mg/dL [facility] Total Protein 7.6 6.1 - 8.0 g/dL [facility] Albumin 4.6 3.2 - 5.2 g/dL [facility] AST 19 0 - 30 unit/L [facility] ALT 17 0 - 30 unit/L [facility] Alk Phos 94 35 - 105 unit/L [facility] Total Bilirubin 0.3 0.2 - 1.3 mg/dL [facility] Estimated GFR 115 >=60 mL/min/1. 73 m?? [facility] Comment: This patient's estimated GFR [...] Resulting Agency Comment Spec In Lab Judith Serrano MD CHEMISTRY ORDERAB LES [facility] [place] [address] * TSH (06/07/2022 11:47 AM EDT) TSH 2.07 0.27 - 4.20 mcIU/mL [facility] Comment: Reference Interval (mcIU/mL): Females: ??First Trimester: 0.23-3.88 ??Second Trimester: 0.22-3.90 ??Third Trimester: 0.44-4.66 Blood 06/07/2022 11:4 7 AM EDT 06/07/2022 11:54 AM EDT Narrative Resulting Agency Comment Spec In Lab Judith Serrano MD CHEMISTRY ORDERAB LES [facility] [place] [address] * (ABNORMAL) Hemoglobin A1c (06/07/2022 11:47 AM EDT) Hemoglobin A1C 7.5(H) 4.3 - 5.6 % [facility] Comment: Reference Range: 4.3 - [...] 1, S67-74 Est Avg Gluc 169 mg/dL [facility] Comment: eAG equivalents for HbA1c [...] into estimated average glucose values. ??Diabetes Care 2008:31(8):9350-7974. Blood 06/07/2022 11:4 7 AM EDT 06/07/2022 11:54 AM EDT Narrative Resulting Agency Comment Spec In Lab Judith Serrano MD CHEMISTRY ORDERAB LES Performing Organization Address [facility]/ZIP Co de Phone Number [facility] [place] [address] * U Albumin/Cre Ratio (06/07/2022 11:32 AM EDT) Alb/Cr Ratio, Random 11 0 - 29 mcg/mg Cr [facility] Comment: Reference Ranges: <30 mcg/mg: [...] 362 U Albumin Conc, Random 5.2 mg/L [facility] U Creatinine 48 mg/dL [facility] Urine 06/07/2022 11:3 2 AM EDT 06/07/2022 11:43 AM EDT Narrative Resulting Agency Comment Spec In Lab Judith Serrano MD URINE ORDERABLES Performing Organization Address [facility]/ZIP Co de Phone Number [facility] [place] [address] documented in this encounter Visit Diagnoses Diagnosis Hypothyroidism, acquired Unspecified hypothyroidism Type 2 diabetes, controlled, with neuropathy Type II or unspecified type diabetes mellitus with neurological manifestations, not stated as uncontrolled History of gastric bypass Bariatric surgery status Vitamin D deficiency Unspecified vitamin D deficiency documented in this encounter Care Teams Instructor Physical Relationship Specialty Start Date End Date Ruth Munoz, ANALOG IC DESIGN ENGINEER [address] [place] [address] PCP - General Family Medicine 02/05/19 documented as of this encounter
--- OUTSIDE RECORDS SUMMARY | 2024-05-15 11:08 | XMS_ITS | Encounter Summary ---
[place] [address] Care Team Providers Care Dry Cleaning Machine Operator Name Role Phone Ruth Munoz LARRY Primary Care Provider + Reason for Visit * Reason Comments Medication Management Encounter Details Date Type Department Care Team (Late st Contact Info) Description 08/05/2020 Specialty [place] [address] Sravanthi Cardoza RPH Social History Tobacco Use [...] Progress Notes * Sravanthi Cardoza RPH - 08/05/2020 11:48 AM EDT Clinical Management Plan: Refill Specialty Pharmacy Consultation; Sravanthi Cardoza RPH Comprehensive Medication Management (CMM) Martha Benoit Ms. Martha Moon Benoit is a 54 y.o. (1965) female who was contacted in regard to a specialty medication refill reminder. Spoke with patient regarding Cosentyx. A review of the medication therapy was performed. The medication was Refilled as scheduled pending renewal on prescription after her appoitnment, and all medication related questions and concerns were addressed. The specialty pharmacy staffwill follow up with the patient 5-7 days prior to next refill. Was a change made to the Care Plan: no If yes, should the medication be held: No Assessment and Recommendations: Title Type of Medication Management: chronic disease management, targeted medication review Referred By: pharmacist Recipient: beneficiary Provider: plan sponsor pharmacist Visit Type: [facility] Follow-up Method of Contact: by telephone Cognitive Ability: good Cognitive Impairment Status Verified this Year: no Allergies and Drug intolerance: No Known Allergies Medication Reconciliation Discrepancies (compared to [facility] med list) -none New medications: no [...] were made at the appointment and that [facility] is providing recommendations (summary located at top of note) for provider review and follow up. Sravanthi Cardoza RPH 08/05/20 11:48 AM documented in this encounter Plan of Treatment Upcoming Encounters Date Type Department Care Team (Late st Contact Info) Description 02/19/2025 9:00 AM EDT TH Visit (TeleHealth) [place] [address] Wyatt Higgins MD [facility] [address] documented as of this encounter Visit Diagnoses Not on filedocumented in this encounter Care Teams Dry Cleaning Machine Operator Relationship Specialty Start Date End Date Ruth Munoz, COMPANY MANAGER [address] [place] [address] PCP - General Family Medicine 02/05/19 documented as of this encounter
--- OUTSIDE RECORDS SUMMARY | 2024-05-15 11:08 | XMS_ITS | Encounter Summary ---
Author Organization [facility] [place] [address] Care Team Providers Care Manager Editorial Name Role Phone MunozRuth jerome Lilibeth JUAREZ Primary Care Provider + Reason for Visit * Reason Comments Medication Refill Encounter Details Date Type Department Care Team (Late st Contact Info) Description 03/17/2020 Refill [place] [phone] Judith Reinoso MD [facility] [place] [address] Social History Tobacco Use Types Packs/Day Years [...] AM EDT TH Visit (TeleHealth) [place] [phone] Wyatt Higgins MD [facility] [place] [address] documented as of this encounter Visit Diagnoses Not on filedocumented in this encounter Care Teams Manager Editorial Relationship Specialty Start Date End Date Ruth Munoz, GENETIC TECHNOLOGIST [address] [place] [address] PCP - General Family Medicine 02/05/19 documented as of this encounter
--- OUTSIDE RECORDS SUMMARY | 2024-05-15 11:08 | XMS_ITS | Encounter Summary ---
[place] [address] Care Team Providers Care Audit Intern Name Role Phone MunozRuth jerome Lilibeth JUAREZ Primary Care Provider + Encounter Details Date Type Department Care Team (Late st Contact Info) Description 07/08/2020 Telephone [place] [phone] Lauren Fowler RN Social History Tobacco Use Types Packs/Day [...] encounter Miscellaneous Notes * Telephone Encounter - Lauren Villaseñor RN - 07/08/2020 3:59 PM EDT Pt notified to resume 70/30 mix to 15-20 TID to manage elevated glucose. * Telephone Encounter - Judith Serrano MD - 07/08/2020 3:31 PM EDT At last visit 02/06/20, we tapered her 70/30 mix tid to bid for A1c 6.8 % on 02/05/20 (was 7.3 on 07/11/19). So, if she noted higher BG trend, ok to resume 70/30mix TID as previously then as A1c is high at 7.8% now (07/02/20). We tried to cut back insulin to help her not to gain wt but ok to resume 15-20u TID if there is no low BG which will cause wt gain. Thanks for letting her know. JUDITH SERRANO MD * Telephone Encounter - Lauren Villaseñor RN - 07/08/2020 3:17 PM EDT Pt left msg that her recent A1c with PCP (they are faxing) was 7.8. She said the last result we hadwas 6.8, but I see a 7.3 on 07/11/19. She is wondering if anything needs to change in her treatment plan. Her last visit was 02/06/20 with instructions for a 1 year FU. Assessment: 54 y.o. lady with much better control of her Diabetes Type 2 s/p gastric bypass surgery 4 year ago with significant wt loss down 60-85 lbs from 250 to 184 lbs today with BMI 29-32 range. A1c has beenreasonable 6.8-7.6% range over the past 2-3 yrs on very low dose insulin 70/30 mix 15 bid or 10u TID lately without the need of sliding scale at all. She is still having good c-peptide 2.9 from her ow n insulin production which is good news. She is very pleased with her wt & A1c results and wants to lose wt further and to keep A1c < 6.5-7% for her diabetic neuropathy. If she can cut back her candies, she would need less insulin 10u BID instead of TID and will be easier to lose some weightdown further. ?? Complication Risk Status: complications present +peripheral neuropathy in both feet with h/o foot drop and walking with walker to help her balance ?? Also, treated for chronic vttamin D deficiency (25vitamin D down 18 and then better at 38-47 and then 70 in Jul 2017 => 44 in Jun 2019, on lowed vitamin D 50,000 iu 2x/wk to weekly per bariatric team. Her B12 was trending down from 400s to 300s and we already gave her B12 injection x1 on 03/09/16as a booster dose for her neuropathy and recent lab showed normal B12 at 448 in => 1,870 in Jun 2019 and 1,487 yesterday so she can reduce B12 to every other day for now. ?? Plan: 1. Medication: Adjustment of diabetes treatment regime: To try to taper 70/30 mix 10u 3x/day to 2x/day in AM and PM to reduce carb craving and to lose weight while she tries to cut back on candies and sweets. will allow her to taper the dose by 2u if needed to keep BG at target of 90-180 range. To use Humalog pen sliding scale as needed if BG>180 while on 70/30 mix (based on 1u:20 BG ratio). To cont glipizideER 10 mg qAM &PM To cont invokana 300 mg qAM, and metformin 500 mg tid (could not tolerate a higher dose) To cont vitamin D 50,000 iu 1x/week and 2 of [place] MVI with iron which contains iron (she could not tolerate a separate iron supplement due to constipation). Ok to reduce B12 to every other day for now. ?? 2. To continue all other medications, vitamin supplements as instructed,and healthy diet to keep wtdown further ?? 3. Monitoring: to check FSBG before each meal and at bedtime. Target BG 90-150 while fasting and 80-180 pre-meal during daytime Target A1c ~7% for this patient while on insulin ?? 5. RTC: Next visit in 12 months (for 5-y post gastric bypass) or earlier needed. Will check lab before next visit for HbA1c, CBC, CMP, lipids, TSH, 25vitamin D, B12, iron/TIBC and annual urine microalbumin/Cr. ? documented in this encounter Plan of Treatment Upcoming Encounters Date Type Department Care Team (Late st Contact Info) Description 02/19/2025 9:00 AM EDT TH Visit (TeleHealth) [place] [address] Wyatt Higgins MD [facility] [place] [address] documented as of this encounter Visit Diagnoses Not on filedocumented in this encounter Care Teams Audit Intern Relationship Specialty Start Date End Date Ruth Munoz APRN [address] [place] [address] PCP - General Family Medicine 02/05/19 documented as of this encounter
--- OUTSIDE RECORDS SUMMARY | 2024-05-15 11:08 | XMS_ITS | Encounter Summary ---
[facility] [place] [address] Care Team Providers Care Bankruptcy Paralegal Name Role Phone Ruth Munoz Lilibeth JUAREZ Primary Care Provider + Encounter Details Date Type Department Care Team (Late st Contact Info) Description 08/13/2020 4:30 PM EDT Office Visit Dermatology at [address] [phone] Galdino Gilliland MD [address] [facility] DERMATOLOG[facility] [place], [place] [id number] Psoriasis Social History Tobacco Use Types Packs/Day [...] Progress Notes * Galdino Gilliland MD - 08/13/2020 4:30 PM EDT Problem: 1. On Cosentyx since May 2020 2. ??Psoriasis on Humira from January to April 2020 with decreasing benefit 3. ??History of significant psoriasis??in her?son and granddaughter 4. ??Status post 2 months of methotrexate??without significant improvement Martha follows up today and is not sure that the Cosentyx really working well for her. She still hassome redness but patches on her legs. The arms and the abdomen however are clear. Physical examination reveals mottling of the lower extremities which are cool to the touch. She does not have any hyperkeratosis no scaling no desquamation of these areas these red patches on her shins and calves. The knees are clear. The arms the elbows are clear. The abdomen and the umbilicus areclear. Assessment plan: Psoriasis much improved on Cosentyx and stable 1. I agree that with the patient that this is not cleared her legs entirely but I think there much improved over baseline would recommend we continue her current therapy. 2. Patient is agreeable to this. 3. Patient denies any Cosentyx associated side effects no burning stinging no injection site reactions. 4. Discussed the safety of Cosentyx during the pandemic. Discontinue it if she develops COVID-19. 5. Return to clinic in 6 months for repeat check. CC: Ruth Munoz APRN ?? documented in this encounter Plan of Treatment Upcoming Encounters Date Type Department Care Team (Late st Contact Info) Description 02/19/2025 9:00 AM EDT TH Visit (TeleHealth) [place] [address] Wyatt Higgins MD [facility] [place] [address] documented as of this encounter Visit Diagnoses Diagnosis Psoriasis Other psoriasis documented in this encounter Care Teams Bankruptcy Paralegal Relationship Specialty Start Date End Date Ruth Munoz APRN [address] [place] [address] PCP - General Family Medicine 02/05/19 documented as of this encounter
--- OUTSIDE RECORDS SUMMARY | 2024-05-15 11:08 | XMS_ITS | Encounter Summary ---
[place] [address] Care Team Providers Care Maintenance Painter Name Role Phone Ruth Munoz LARRY Primary Care Provider + Reason for Visit * Reason Comments Medication Management Encounter Details Date Type Department Care Team (Late st Contact Info) Description 04/27/2020 Specialty [place]acy [place] [address] Sravanthi Cardoza RPH Social History Tobacco Use [...] Progress Notes * Sravanthi Cardoza RPH - 04/27/2020 1:13 PM EDT Clinical Management Plan: Refill Specialty Pharmacy Consultation; Sravanthi Cardoza RPH Comprehensive Medication Management (CMM) Martha Benoit Ms. Martha Moon Benoit is a 54 y.o. (1965) female who was contacted in regard to a specialty medication refill reminder. Spoke with patient regarding Humira. A review of the medication therapy was [...] beneficiary Provider: plan sponsor pharmacist [place] [facility] [place] Method of Contact: by telephone Cognitive Ability: good Cognitive Impairment Status Verified this Year: no Allergies and Drug intolerance: No Known Allergies Medication Reconciliation Discrepancies (compared to [facility] med list) -none New medications: no [...] were made at the appointment and that [facility] is providing recommendations (summary located at top of note) for provider review and follow up. Sravanthi Cardoza RPH 04/27/20 1:14 PM documented in this encounter Plan of Treatment Upcoming Encounters Date Type Department Care Team (Late st Contact Info) Description 02/19/2025 9:00 AM EDT TH Visit (TeleHealth) [place] [address] Wyatt Higgins MD [facility] [place] [address] documented as of this encounter Visit Diagnoses Not on filedocumented in this encounter Care Teams Maintenance Painter Relationship Specialty Start Date End Date Ruth Munoz APRN [address] [place] [address] PCP - General Family Medicine 02/05/19 documented as of this encounter
--- OUTSIDE RECORDS SUMMARY | 2024-05-15 11:08 | XMS_ITS | Encounter Summary ---
Author Organization [facility] [place] [address] Care Team Providers Care Professor Of Journalism Name Role Phone MunozRuth jerome Lilibeth [facility] Primary Care Provider + Reason for Visit * Reason Onset Date Comments Medication Refill 2020 Encounter Details Date Type Department Care Team (Late st Contact Info) Description 2020 [place] [phone] Randee López CORONER TRANSPORT TECHNICIAN [facility] [address] Social History Tobacco Use Types Packs/Day Years [...] AM EDT TH Visit (TeleHealth) [place] [address] Wyatt Higgins MD [facility] [place] [address] documented as of this encounter Visit Diagnoses Not on filedocumented in this encounter Care Teams Professor Of Journalism Relationship Specialty Start Date End Date Ruth Munoz APRN [address] [place] [address] PCP - General Family Medicine 02/05/19 documented as of this encounter
--- OUTSIDE RECORDS SUMMARY | 2024-05-15 11:08 | XMS_ITS | Encounter Summary ---
[place] [address] Care Team Providers Care Safekeeping Clerk Name Role Phone Ruth Munoz LARRY Primary Care Provider + Reason for Visit * Reason Comments Medication Refill Encounter Details Date Type Department Care Team (Late st Contact Info) Description 10/02/2020 Specialty Pharmacy [place] [address] Sravanthi Cardoza RPH Social History Tobacco Use [...] Progress Notes * Sravanthi Cardoza RPH - 10/02/2020 3:23 PM EST Clinical Management Plan: Refill Specialty [...] beneficiary Provider: plan sponsor pharmacist [place]: [facility] [place] Method of Contact: by telephone Cognitive Ability: good Cognitive Impairment Status Verified this Year: no Allergies and Drug intolerance: No Known Allergies Medication Reconciliation Discrepancies (compared to [facility] med list) -none New medications: no [...] were made at the appointment and that [facility] is providing recommendations (summary located at top of note) for provider review and follow up. Sravanthi Cardoza RPH 10/02/20 3:24 PM documented in this encounter Plan of Treatment Upcoming Encounters Date Type Department Care Team (Late st Contact Info) Description 02/19/2025 9:00 AM EDT TH Visit (TeleHealth) [place] [phone] Wyatt Higgins MD [facility] [place] [address] documented as of this encounter Visit Diagnoses Not on filedocumented in this encounter Care Teams Safekeeping Clerk Relationship Specialty Start Date End Date Ruht Munoz APRN [address] [place] [address] PCP - General Family Medicine 02/05/19 documented as of this encounter
--- OUTSIDE RECORDS SUMMARY | 2024-05-15 11:08 | XMS_ITS | Encounter Summary ---
[place] [address] Care Team Providers Care Evaluation Assistant Name Role Phone Ruth Munoz LARRY Primary Care Provider + Reason for Visit * Reason Comments Medication Refill Encounter Details Date Type Department Care Team (Late st Contact Info) Description 10/29/2020 Specialty [place] [address] Taty Lopez RPH Social History Tobacco Use Types Packs/Day [...] as of this encounter Progress Notes * Taty Lopez RPH - 10/29/2020 1:04 PM EST Clinical Management Plan: Refill Specialty Pharmacy Consultation; Taty Lopez RPH Comprehensive Medication Management (CMM) Martha Benoit [...] beneficiary Provider: plan sponsor pharmacist [place] [facility] [place] Method of Contact: by telephone Cognitive Ability: good Cognitive Impairment Status Verified this Year: no Allergies and Drug intolerance: No Known Allergies Medication Reconciliation Discrepancies (compared to [facility] med list) -none New medications: no New [...] were made at the appointment and that [facility] is providing recommendations (summary located at top of note) for provider review and follow up. Taty Lopez RPH 10/29/20 1:05 PM documented in this encounter Plan of Treatment Upcoming Encounters Date Type Department Care Team (Late st Contact Info) Description 02/19/2025 9:00 AM EDT TH Visit (TeleHealth) [place] [address] Wyatt Higgins MD [facility] [place] [address] documented as of this encounter Visit Diagnoses Not on filedocumented in this encounter Care Teams Evaluation Assistant Relationship Specialty Start Date End Date Ruth Munoz, MAGAZINE FEEDER [address] [place] [address] PCP - General Family Medicine 02/05/19 documented as of this encounter
--- OUTSIDE RECORDS SUMMARY | 2024-05-15 11:08 | XMS_ITS | Encounter Summary ---
[place] [address] Care Team Providers Care Manufacturing Assistant Name Role Phone Ruth Munoz LARRY Primary Care Provider + Reason for Visit * Reason Comments Specialty Refill Management Encounter Details Date Type Department Care Team (Late st Contact Info) Description 12/28/2020 Specialty Pharmacy [place] [address] Sravanthi Cardoza RPH Social History Tobacco Use [...] Progress Notes * Sravanthi Cardoza RPH - 12/28/2020 10:37 AM EST Clinical Management Plan: Refill Specialty Pharmacy Consultation; Sravanthi Cardoza RPH Comprehensive Medication Management (CMM) Martha Benoit Ms. Martha Moon Benoit is a 55 y.o. (1965) female who was contacted in regard to a specialty medication refill reminder. Spoke with patient regarding cosentyx. A review of [...] beneficiary Provider: plan sponsor pharmacist Visit Type: [facility] [place] Method of Contact: by telephone Cognitive Ability: good Cognitive Impairment Status Verified this Year: no Allergies and Drug intolerance: No Known Allergies Medication Reconciliation Discrepancies (compared to [facility] med list) -none New medications: no New [...] were made at the appointment and that [facility] is providing recommendations (summary located at top of note) for provider review and follow up. Sravanthi Cardoza RPH 12/28/20 10:39 AM documented in this encounter Plan of Treatment Upcoming Encounters Date Type Department Care Team (Late st Contact Info) Description 02/19/2025 9:00 AM EDT TH Visit (TeleHealth) [place] [address] Wyatt Higgins MD [facility] [address] documented as of this encounter Visit Diagnoses Not on filedocumented in this encounter Care Teams Manufacturing Assistant Relationship Specialty Start Date End Date Ruth Munoz BAND SHOVER [address] [place] [address] PCP - General Family Medicine 02/05/19 documented as of this encounter
--- OUTSIDE RECORDS SUMMARY | 2024-05-15 11:08 | XMS_ITS | Encounter Summary ---
Author Organization [facility] [place] [address] Care Team Providers Care Rn Womens Health Name Role Phone MunozRuth jerome Lilibeth JUAREZ Primary Care Provider + Reason for Visit * Reason Comments Medication Refill Encounter Details Date Type Department Care Team (Late st Contact Info) Description 09/01/2020 Refill [place] [phone] Judith Reinoso MD [facility] [address] [place] [address] Social History Tobacco Use Types Packs/Day Years [...] AM EDT TH Visit (TeleHealth[place] [phone] Wyatt Higgins MD [facility] [place] [address] documented as of this encounter Visit Diagnoses Not on filedocumented in this encounter Care Teams Rn Womens Health Relationship Specialty Start Date End Date Ruth Munoz, RECRUITMENT OFFICER [address] [place] [address] PCP - General Family Medicine 02/05/19 documented as of this encounter
--- OUTSIDE RECORDS SUMMARY | 2024-05-15 11:08 | XMS_ITS | Encounter Summary ---
Author Organization [facility] [place] [address] Care Team Providers Care Manager Marketing Name Role Phone UmnozAidan jeromeantony Mcelroy APRN Primary Care Provider + Encounter Details Date Type Department Care Team (Latest Contact Info) Description 2020 10:00 AM EST TH Visit (TeleHealth) [place] [address] Judith Reinoso MD [facility] [place] [address] Type 2 diabetes mellitus, uncontrolled, with neuropathy; [...] - - Temperature - - Respiratory Rate 12 2020 10:06 AM EST Oxygen Saturation - - Inhaled Oxygen Concentration - - Weight 81.2 kg (179 lb) 2020 10:06 AM EST Height 160 cm (5' 3) 2020 10:06 AM EST Body Mass Index 31.71 2020 10:06 AM EST documented in this encounter Patient Instructions * Patient Instructions* Judith Reinoso MD - 2020 10:00 AM EST Plan: 1. Medication: Adjustment of diabetes treatment regime: To increase 70/30 mix 10u 3x/day to 20u 3x/day to keep BG down to 80-180 range consistently which will help get rid of yeast infection. will allow her to taper the dose by 2u if needed.. To use Humalog pen sliding scale as needed if BG>180 while on 70/30 mix (based on 1u:20 BG ratio). To cont glipizideER 10 mg qAM &PM To hod invokana 300 mg qAM when she has yeast infection and ok to resume it as it works well for her DM and weight control. To cont metformin 500 mg tid (could not tolerate a higher dose) To cont vitamin D 50,000 iu weekly and 2 of Grapevine MVI with iron which contains iron (she couldnot tolerate a separate iron supplement due to constipation). To cont B12 1 tablet (1,000 mcg) every other day. 2. To continue all other medications, vitamin supplements as instructed,and healthy diet to keep wtdown further 3. Monitoring: to check FSBG before each meal and at bedtime. Target BG 90-150 while fasting and 80-180 pre-meal during daytime Target A1c ~7% for this patient while on insulin 4. Lab: To recheck lab with PCP soon for her A1c and 25vitami n D, and will let her know the results soon. 5. RTC: Next visit in 6 months (for 5.5-y post gastric bypass) or earlier needed. Will check annuallab before next visit for HbA1c, CBC, CMP, lipids, TSH, 25vitamin D, B12, iron/TIBC and annual urine microalbumin/Cr. documented in this encounter Progress Notes * Judith Reinoso MD - 2020 10:00 AM EST Endocrine Clinic Name: Jo Jones : 1965 Date: 2020 PCP: uRth Munoz APRN Reason for visit: Follow-up Type 2 diabetes s/p bariatric surgery 5 yrs ago (Dr. Mai on 01/04/16) with good wt loss of 60-75 bs since the surgery and BMI 29- 32 range. Patient verbally consents to this telephone visit and understands that this visit may be billed, similar to a clinic office visit. I provided care to the patient today via telephone call. The total time associated with this visit was 52 minutes. HPI: Jo Jones is a 55 y.o. lady : Patient left voicemail that she has been having issues with her BG requiring more testing and moreinsulin than what she normally uses. She says she has also been having issues with yeast, both female yeast as well as skin yeast, under the breast. Diabetes treatment regimen: 70/30 mix pen 10u 3x/day => will double 20u tid the dose for now with persistent hyperglycemia to keep fasting BG <150 again soon Novolog sliding scale p.r.n for correction of high BG>180 Metformin 500 mg 3x/day (1,500 mg/day) GlipizideER 10 mg bid Ivokana 300 mg qd- held last week when she had yeast infection and was out of the meds so she will get refills soon as well. FSBG: average 180 over the past 2 weeks, ranging between 140s- 250s mg/dl and noted much higher BG over the past week with fasting BG 219 yesterday and 234 this AM! Most recent HA1c: 7.8% on 07/02/20 (6.8% on 02/05/20, 7.3% on 07/11/19, 7.5% on [...] 175-185 lbs range over the past year (179 lbs today) and used to weigh 240s-250s lbs before gastric bypass in 2016. She tried to cut back on carb so she can reduce insulin 3x/day to 2x/day for her 70/30 mix insulin but BG over the past week were persistently high in 200s even while fasting. She has stress from [employer] taking her grandchildren away and also lots of yeast infection. No other illness or changes in her diet, still mostly vegetables. A1c is trending up from 6.8% to 7.8% last fall and will check lab at PCP's office again soon. She has a new PCP who keeps close care of her medical issues and tried not to give her anti-fungal medications often to prevent resistant issue. She will simply need more insulin now to keep BG under control <200 all the time to help prevent yeast infection and we will send a new prescription for her to use more insulin (her insurance covered for mix 70/30 insulin well). She is now ~6year post bariatric surgery [...] and is pending for lab results at [facility]. She has been taking Grapevine multivitamin to 2 tab daily with normal [...] to Visit Medication Sig Dispense Refill ??? glipiZIDE XL (Glucotrol XL) 10 mg Tablet Extended Rel 24 hr TAKE ONE TABLET BY MOUTH TWICE A DAY 180 tablet 3 ??? ergocalciferoL, vitamin D2, (vitamin D2) 50,000 unit Capsule TAKE ONE CAPSULE BY MOUTH EVERY WEEK 12 capsule 3 ??? secukinumab 150 mg/mL Pen Injector Inject 300 mg subcutaneously every 28 days. 2 Pen 11 ??? cyanocobalamin, vitamin B-12, 500 mcg Tablet, Sublingual Place 1 tablet under the tongue daily.90 tablet 0 ??? adalimumab 40 mg/0.4 mL Pen Injector Kit Inject 40 mg subcutaneously every 14 days. ??? metFORMIN XR (Glucophage XR) 500 mg Tablet Sustained Release 24 hr TAKE ONE TABLET BY MOUTH THREE TIMES A DAY WITH MEALS 270 tablet 3 ??? Invokana 300 mg Tablet TAKE ONE TABLET BY MOUTH EVERY DAY 90 tablet 3 ??? omeprazole (PRILOSEC) 20 mg Capsule, Delayed Release(E.C.) TAKE ONE CAPSULE BY MOUTH EVERY DAY 30 MINUTES PRIOR TO BREAKFAST ON AN EMPTY STOMACH 90 capsule 3 ??? fluconazole (DIFLUCAN) 150 mg Tablet Take 150 mg by mouth as needed. 3 ??? insulin aspart protamine-insulin aspart 70/30 (NOVOLOG MIX 70-30 FLEXPEN) Insulin Pen Inject 15-20 units subcutaneously 2 times daily 45 mL 3 ??? BACLOFEN ORAL Take 5 mg by mouth 4 times daily. ??? RESTASIS 0.05 % Dropperette Place 1 drop into both eyes 2 times daily. ??? nystatin (MYCOSTATIN) Powder 1 Application as needed. 2 ??? RECTIV Apply 1 Application topically as needed. ??? pediatric multivitamin no.76 (FLINTSTONES COMPLETE) Tablet, Chewable Take 1 tablet by mouth 2 times daily. 180 tablet 3 ??? ciclopirox (PENLAC) 8 % Solution ??? SF 5000 PLUS 1.1 % Cream BRUSH ON TEETH ONCE DAILY DIRECTED 11 ??? insulin lispro (HUMALOG) Solution Inject 15 Units subcutaneously. ??? triamcinolone (KENALOG) 0.1 % Ointment APPLY TOPICALLY TO ARMS LEGS AND ABDOMEN TWO TIMES A DAYAS NEEDED 3 ??? oxyCODONE-acetaminophen (PERCOCET) 10-325 mg Tablet Take 1 tablet by mouth 6 times daily. ??? gabapentin (NEURONTIN) 300 mg Capsule Take 300 mg by mouth. ??? lidocaine (LIDODERM) 5 %(700 mg/patch) Place 1 patch onto the skin every 12 hours as needed. ??? baclofen (LIORESAL) 10 mg tablet Take 10 mg by mouth 4 times daily. No current facility-administered medications on file prior to visit. No Known Allergies Social History Socioeconomic History ??? Marital status: Spouse name: Not on file ??? Number of children: Not on file ??? Years of education: Not on file ??? Highest education level: Not on file Occupational History ??? Occupation: disabled Social Needs ??? Financial resource strain: Not on file ??? Food insecurity Worry: Not on file Inability: Not on file ??? Transportation needs Medical: Not on file Non-medical: Not on file Tobacco Use ??? Smoking status: Never Smoker ??? Smokeless tobacco: Never Used Substance and Sexual Activity ??? Alcohol use: No ??? Drug use: No ??? Sexual activity: Not on file Comment: deferred Lifestyle ??? Physical activity Days per week: Not on file Minutes per session: Not on file ??? Stress: Not on file Relationships ??? Social connections Talks on phone: Not on file Gets together: Not on file Attends episcopalian service: Not on file Active member of [...] Social History Narrative ??? Not on file FAMILY HISTORY Family History Problem Relation Age of Onset ??? Diabetes Mother ??? Diabetes Father ??? Diabetes Other ??? High Cholesterol Other ??? Hypertension Other ??? Stroke Other ??? Obesity Other ??? Psoriasis Other ??? * Other congenital malformation in her son/kidney stone Physical exam Resp 12 Ht 160 cm (5' 3) Wt 81.2 kg (179 lb) BMI 31.71 kg/m?? Deferred PE from last in-person visit: Appearance: Non-obese, pleasant, NAD, still having slight thin scalp hairs, generalized psoriasis. HEENT: PERRLA, EOMI Neck: no goiter or lymphadenopathy Cardiac: normal S1, S2, no murmur Chest: CTA, no wheeze or crackle. Abdomen: benign, NT, ND Ext: no pitting edema + small left foot ulcer - healing slowly Neuro: mild weakness, depressed reflexes Skin: + dry skin Recent labs Results for JO JONES ( [...] 7.3 (H) => 6.8 % on 02/05/20 yesterday with BG 140 Est Avg Gluc Latest [...] to resume 15-20u TID for high BG. Assessment: 55 y.o. lady with much higher BG last week in 200s when she was out of Invokana causing yeast infection and will need to keep BG down to <200 consistently to get rid of yeast infection first before she resumes Invokana which really helps control of her Diabetes Type 2. She had gastric bypass surgery ~ 6 year ago with significant wt loss down 60-85 lbs from 250 to 179 lbs today with BMI 29-32 ra nge. A1c has been reasonable 6.8-7.8% range over the past 2-3 yrs on very low dose insulin 70/30 mix 10u TID lately with occasional use of sliding scale. She is still having good [...] other day since then. Plan: 1. Medication: Adjustment of diabetes treatment regime: To increase 70/30 mix 10u 3x/day to 20u 3x/day to keep BG down to 80-180 range consistently which will help get rid of yeast infection. will allow her to taper the dose by 2u if needed.. To use Humalog pen sliding scale as needed if BG>180 while on 70/30 mix (based on 1u:20 BG ratio). To cont glipizideER 10 mg qAM &PM To hod invokana 300 mg qAM when she has yeast infection and ok to resume it as it works well for her DM and weight control. To cont metformin 500 mg tid (could not tolerate a higher dose) To cont vitamin D 50,000 iu weekly and 2 of Grapevine MVI with iron which contains iron (she couldnot tolerate a separate iron supplement due to constipation). To cont B12 1 tablet (1,000 mcg) every other day. 2. To continue all other medications, vitamin supplements as instructed,and healthy diet to keep wtdown further 3. Monitoring: to check FSBG before each meal and at bedtime. Target BG 90-150 while fasting and 80-180 pre-meal during daytime Target A1c ~7% for this patient while on insulin 4. Lab: To recheck lab with PCP soon for her A1c and 25vitami n D, and will let her know the results soon. 5. RTC: Next visit in 6 months (for 5.5-y post gastric bypass) or earlier needed. Will check annuallab before next visit for HbA1c, CBC, CMP, [...] AM EDT TH Visit (TeleHealth) [place] [address] Wyatt Higgins MD [facility] [place] [address] documented as of this encounter Results * U Albumin/Cre Ratio (05/31/2021 8:55 AM EDT) Alb/Cr Ratio, Random 15 0 - 29 mcg/mg Cr [facility] Comment: Reference Ranges: <30 mcg/mg: [...] 362 U Albumin Conc, Random 4.6 mg/L [facility] U Creatinine 31 mg/dL [facility] Urine 05/31/2021 8:55 AM EDT 05/31/2021 9:04 AM EDT Narrative Resulting Agency Comment Spec In Lab Judith Reinoso MD URINE ORDERABLES Performing Organization Address City/[facility]/ZIP Co de Phone Number [facility] [place] [address] * (ABNORMAL) Vitamin B12 (05/31/2021 8:48 AM EDT) Vitamin B-12 1,960(H) 232 - 1,245 pg/mL [facility] Blood 05/31/2021 8:48 AM EDT 05/31/2021 8:54 AM EDT Narrative Resulting Agency Comment Spec In Lab Judith Reinoso MD CHEMISTRY ORDERAB LES Performing Organization Address [facility] Co de Phone Number [facility] [place] [address] * Iron and TIBC (05/31/2021 8:48 AM EDT) Iron 77 30 - 150 mcg/dL [facility] TIBC 295 250 - 450 mcg/dL [facility] Iron Saturation 26 20 - 50 % [facility] Blood 05/31/2021 8:48 AM EDT 05/31/2021 8:54 AM EDT Narrative Resulting Agency Comment Spec In Lab Judith Reinoso MD CHEMISTRY ORDERAB LES Performing Organization Address City/[facility]/ZIP Co de Phone Number [facility] [place] [address] * Vitamin D, 25-Hydroxy (05/31/2021 8:48 AM EDT) 25-OH Vit D Total 39 21 - 100 ng/mL [facility] 25-OH Vit D Interp Sufficient [facility] Blood 05/31/2021 8:48 AM EDT 05/31/2021 8:54 AM EDT Narrative Resulting Agency Comment Spec In Lab Judith Reinsoo MD CHEMISTRY ORDERAB LES [facility] [place] [address] * Lipid Panel (Reflex Direct LDL) (05/31/2021 8:48 AM EDT) Chol, Total 214 mg/dL [facility] Comment: Lower Risk: <200 mg/dL Average Risk: 200-239 mg/dL Higher Risk: >ht=155 mg/dL Triglycerides 184 mg/dL [facility] Comment: Average Risk/Lower Risk: <150 mg/dL Borderline High Risk: 150-199 mg/dL High Risk: 200-499 mg/dL Very High Risk: >se=952 mg/dL HDL 58 mg/dL [facility] Comment: Males: ?? Higher Risk: <40 mg/dL Females: ?? Higher Risk: <50 mg/dL LDL Cholesterol 119 mg/dL [facility] Comment: Lowest Risk: <100 mg/dL Lower Risk: 100-129 mg/dL Borderline High Risk: 130-159 mg/dL High Risk: 160-189 mg/dL Very High Risk: >ik=737 mg/dL Chol/HDL Ratio 3.7 ratio [facility] Lipid Interpretation See Note [facility] Comment: Lipid management should be guided by a patient? s ASCVD risk, goals and preferences. ACC/AHA Guidelines recommend high intensity statin if clinical ASCVD or LDL greater than or equal to 190 mg/dL. http://[email or web address].com/VIY-VKM-Yczmovnon Adults aged 40-75 with LDL 70-189 mg/dL should have their 10 year ASCVD risk estimated with the ACC/AHA ASCVD risk insulation estimator http://tools.acc.org/TXSUX-Eicx-Zzubxzllp/ Statin should be discussed if risk greater [...] MD CHEMISTRY ORDERAB LES [facility] [place] [address] * (ABNORMAL) Comprehensive metabolic panel (non-fasting) (05/31/2021 8:48 AM EDT) Glucose Lvl 140 65 - 199 mg/dL [facility] Comment:Diabetes: >=200 mg/d L plus symptoms BUN 10 8 - 18 mg/dL [facility] Creatinine 0.51(L) 0.70 - 1.20 mg/dL [facility] Sodium 144 135 - 145 mmol/L [facility] Potassium 4.8 3.5 - 5.0 mmol/L [facility] Comment: Please note: ??Patients with WBC >100,000 may have falsely elevated Potassium levels. ??For accurate Potassium quantification in these patients send serum separator tube (gold top) for subsequent determinations. ??Contact the Clinical Chemistry Laboratory if there are any questions. Chloride 105 98 - 107 mmol/L [facility] CO2 29 22 - 31 mmol/L [facility] Anion Gap 10 5 - 15 mmol/L [facility] Calcium 9.9 8.5 - 10.5 mg/dL [facility] Total Protein 7.5 6.1 - 8.0 gm/dL [facility] Albumin 4.4 3.2 - 5.2 gm/dL [facility] AST 15 0 - 30 unit/L [facility] ALT 19 0 - 30 unit/L [facility] Alk Phos 106(H) 35 - 105 unit/L [facility] Total Bilirubin 0.3 0.2 - 1.3 mg/dL [facility] Estimated GFR 107 >=60 mL/min/1. 73 m?? [facility] Comment: This patient? s estimated [...] MD CHEMISTRY ORDERAB LES Performing Organization Address [facility] Co de Phone Number [facility] [place] [address] * (ABNORMAL) TSH (05/31/2021 8:48 AM EDT) TSH 4.31(H) 0.27 - 4.20 mcIU/mL [facility] Comment: Reference Interval (mcIU/mL): Females: ??First Trimester: 0.23-3.88 ??Second Trimester: 0.22-3.90 ??Third Trimester: 0.44-4.66 Blood 05/31/2021 8:48 AM EDT 05/31/2021 8:54 AM EDT Narrative Resulting Agency Comment Spec In Lab Judith Reinoso MD CHEMISTRY ORDERAB LES Performing Organization Address City/[facility]/ZIP Co de Phone Number [facility] [place] [address] * (ABNORMAL) Hemoglobin A1c (05/31/2021 8:48 AM EDT) Hemoglobin A1C 7.5(H) 4.3 - 5.6 % [facility] [...] 1, S67-74 Est Avg Gluc 168 mg/dL [facility] Comment: eAG equivalents for HbA1c [...] into estimated average glucose values. ??Diabetes Care 2008:31(8):5068-9752. Blood 05/31/2021 8:48 AM EDT 05/31/2021 8:54 AM EDT Narrative Resulting Agency Comment Spec In Lab Judith Reinoso [place] [address] documented in this encounter Visit Diagnoses Diagnosis Type 2 diabetes mellitus, uncontrolled, with neuropathy Type II or unspecified type diabetes mellitus with neurological manifestations, uncontrolled Vitamin D deficiency Unspecified vitamin D deficiency Status post gastric bypass for obesity Bariatric surgery status Dyslipidemia Other and unspecified hyperlipidemia Chronic fatigue Other malaise and fatigue documented in this encounter Care Teams Manager Marketing Relationship Specialty Start Date End Date Ruth Munoz, SOCK BOARDER [address] [place] [address] PCP - General Family Medicine 02/05/19 documented as of this encounter
--- OUTSIDE RECORDS SUMMARY | 2024-05-15 11:08 | XMS_ITS | Encounter Summary ---
[place] [address] Care Team Providers Care Director Of Premium Seat Sales Name Role Phone Ruth Munoz Lilibeth JUAREZ Primary Care Provider + Reason for Visit * Reason Comments Medication Management Encounter Details Date Type Department Care Team (Late st Contact Info) Description 05/13/2020 Specialty [place] [address] Sravanthi Cardoza RPH Social History Tobacco Use [...] Progress Notes * Sravanthi Cardoza RPH - 05/13/2020 4:06 PM EDT Clinical Management Plan: Transfer of Care/Discharge Specialty Services Specialty Pharmacy Consultation; Sravanthi Cardoza RPH Comprehensive Medication Management (CMM) Martha Benoit [address] [facility] [address] Telephone Information: Work Phone Not on file. Is the patient transferring services to a different Specialty Pharmacy or discontinuing the medication? Yes: changing to Cosentyx Medication: Humira Reason for discontinuation or transfer: inefficacy Approximate date of discontinuation or transfer: 05/13/2020 Patient's response to therapy: poor Summary of services provided by [facility]: she was provided with routine fills and consultations Summary of on-going needs: patient will be starting on Cosentyx Referral for additional services (if applicable): no Is patient aware of referral? N/A Instructions provided to patient about discharge/transfer: no Provider aware of discontinuation or transfer: yes Patient understands no changes to current drug regimen were made at the appointment and that [facility] is[facility] recommendations (summary located at top of note) for provider review and follow up. Sravanthi Cardoza RPH 05/13/20 4:07 PM documented in this encounter Plan of Treatment Upcoming Encounters Date Type Department Care Team (Late st Contact Info) Description 02/19/2025 9:00 AM EDT TH Visit (TeleHealth) [place] [address] Wyatt Higgins MD [facility] [place] [address] documented as of this encounter Visit Diagnoses Not on filedocumented in this encounter Care Teams Director Of Premium Seat Sales Relationship Specialty Start Date End Date Ruth Munoz APRN [address] [place] [address] PCP - General Family Medicine 02/05/19 documented as of this encounter
--- OUTSIDE RECORDS SUMMARY | 2024-05-15 11:08 | XMS_ITS | Encounter Summary ---
[place] [address] Care Team Providers Care Mixer Attendant Name Role Phone Ruth Munoz LARRY Primary Care Provider + Reason for Visit * Reason Onset Date Comments Medication Refill 2020 Encounter Details Date Type Department Care Team (Late st Contact Info) Description 2020 Refill [place] [phone] Santos Mccloud RN Social History Tobacco Use [...] Telephone Encounter - Santos Mccloud RN - 2020 11:52 AM EST Patient left voicemail that she needs Freestyle Lite test strips sent to the pharmacy. She says herbariatric doctors are also not sending in her vitamin B and she wonders if Dr Reinoso can do this. documented in this encounter Plan of Treatment Upcoming Encounters Date Type Department Care Team (Late st Contact Info) Description 02/19/2025 9:00 AM EDT TH Visit (TeleHealth) [place] [address] Wyatt Higgins MD [facility] [place] [address] documented as of this encounter Visit Diagnoses Not on filedocumented in this encounter Care Teams Mixer Attendant Relationship Specialty Start Date End Date Ruth Munoz APRN [address] [place] [address] PCP - General Family Medicine 02/05/19 documented as of this encounter
--- OUTSIDE RECORDS SUMMARY | 2024-05-15 11:08 | XMS_ITS | Encounter Summary ---
[place] [address] Care Team Providers Care Rail Car Operator Name Role Phone MunozRuth jerome LARRY Primary Care Provider + Encounter Details Date Type Department Care Team (Late st Contact Info) Description 07/03/2020 Telephone [place] [phone] Lauren Fowler RN Social History Tobacco Use [...] encounter Miscellaneous Notes * Telephone Encounter - Judith Reinoso MD - 07/03/2020 5:46 PM EDT Reasonable A1c 7.8% on 07/02/20 (was 6.8% in mid Apr). JUDITH REINOSO MD * Telephone Encounter - Lauren Villaseñor RN - 07/03/2020 1:29 PM EDT Pt left msg that she had A1c drawn yesterday in case we wanted it. PCP office is faxing result, pt not due for FUV until January 2020. documented in this encounter Plan of Treatment Upcoming Encounters Date Type Department Care Team (Late st Contact Info) Description 02/19/2025 9:00 AM EDT TH Visit (TeleHealth) [place] [address] Wyatt Higgins MD [facility] [place] [address] documented as of this encounter Visit Diagnoses Not on filedocumented in this encounter Care Teams Rail Car Operator Relationship Specialty Start Date End Date Ruth Munoz, LARRY [address] [place] [address] PCP - General Family Medicine 02/05/19 documented as of this encounter
--- OUTSIDE RECORDS SUMMARY | 2024-05-15 11:08 | XMS_ITS | Encounter Summary ---
Author Organization [facility] Address [facility] [place] [address] Care Team Providers Care Biology Department Chair Name Role Phone MunozAidan jeromeantony Mcelroy APRN Primary Care Provider + Encounter Details Date Type Department Care Team (Late st Contact Info) Description 09/23/2020 Orders [place] [phone] Yvonne Menchaca MD [facility] [place] [address] Status post bariatric surgery Social History Tobacco Use Types Packs/Day Years [...] AM EDT TH Visit (TeleHealth[place] [phone] Wyatt Higgins MD [facility] [place] [address] documented as of this encounter Visit Diagnoses Diagnosis Status post bariatric surgery Bariatric surgery status documented in this encounter Care Teams Biology Department Chair Relationship Specialty Start Date End Date Ruth Munoz APRN [address] [place] [address] PCP - General Family Medicine 02/05/19 documented as of this encounter
--- OUTSIDE RECORDS SUMMARY | 2024-05-15 11:08 | XMS_ITS | Encounter Summary ---
[place] [address] Care Team Providers Care Corporate Job Titles Name Role Phone Ruth Munoz Lilibeth JUAREZ Primary Care Provider + Encounter Details Date Type Department Care Team (Late st Contact Info) Description 08/05/2020 Refill Dermatology at [place] [address] [facility] [place] [phone] Galdino Gilliland MD [address] [facility] [place] [address] Social History Tobacco Use Types Packs/Day Years [...] AM EDT TH Visit (TeleHealth) [place] [address] Wyatt Higgins MD [facility] [place] [address] documented as of this encounter Visit Diagnoses Not on filedocumented in this encounter Care Teams Corporate Job Titles Relationship Specialty Start Date End Date Ruth Munoz APRN [address] [place] [address] PCP - General Family Medicine 02/05/19 documented as of this encounter
--- OUTSIDE RECORDS SUMMARY | 2024-05-15 11:08 | XMS_ITS | Encounter Summary ---
Author Organization [facility] [place] [address] Care Team Providers Care Director Of Strategic Sourcing Name Role Phone AlexanderRuth Lilibeth [facility] Primary Care Provider + Encounter Details Date Type Department Care Team (Late st Contact Info) Description 07/08/2020 Orders [place] [phone] Randee López CL[employer] MARK[employer] [facility] [place] [address] Social History Tobacco Use Types Packs/Day Years [...] TH Visit (TeleHealth) [place] [phone] Wyatt Higgins MD [facility] [place] [address] documented as of this encounter Visit Diagnoses Not on filedocumented in this encounter Care Teams Director Of Strategic Sourcing Relationship Specialty Start Date End Date Ruth Munoz APRN [address] [place] [address] PCP - General Family Medicine 02/05/19 documented as of this encounter
--- OUTSIDE RECORDS SUMMARY | 2024-05-15 11:09 | XMS_ITS | Encounter Summary ---
Author [facility] [place] [address] Care Team Providers Care Mechanic Assistant Name Role Phone MunozRuth jerome Lilibeth JUAREZ Primary Care Provider + Encounter Details Date Type Department Care Team (Late st Contact Info) Description 09/06/2019 Telephone [place] [address] Prince Sorensen MD [facility] [place] [address] Social History Tobacco Use Types Packs/Day Years [...] encounter Miscellaneous Notes * Telephone Encounter - Prince Sorensen - 09/06/2019 9:11 AM EST Updated patient about CSF results today. All the results are normal. Patient asked about high WBC count on hemogram. Advised to make appt with PCP for further eval. documented in this encounter Plan of Treatment Upcoming Encounters Date Type Department Care Team (Late st Contact Info) Description 02/19/2025 9:00 AM EDT TH Visit (TeleHealth) [place] [address] Wyatt Higgins MD [facility] [place] [address] documented as of this encounter Visit Diagnoses Not on filedocumented in this encounter Care Teams Mechanic Assistant Relationship Specialty Start Date End Date Ruth Munoz, LARRY [address] [place] [address] PCP - General Family Medicine 02/05/19 documented as of this encounter
--- OUTSIDE RECORDS SUMMARY | 2024-05-15 11:09 | XMS_ITS | Encounter Summary ---
[place] [address] Care Team Providers Care Sprinkling System Irrigator Name Role Phone MunozAidan jeromeantony Mcelroy APRN Primary Care Provider + Reason for Visit * Reason Onset Date Comments Prior Authorization 02/14/2020 Humira Encounter Details Date Type Department Care Team (Late st Contact Info) Description 02/14/2020 [place] [address] Louis Baeza, [facility] Prior Authorization (Humira) Social History Tobacco Use Types Packs/Day Years [...] encounter Miscellaneous Notes * Telephone Encounter - Louis Baeza - 02/14/2020 11:34 AM EDT [facility], Prior Authorization Approval Medication Name: Humira Pen Kit PS/UV FILLABLE AT [facility]? yes APPROVAL DATES: 02/11/2020 - 03/12/2020 SPECIFIC INS REQUIREMENT: Can fill with Pharmacy CASE/REFERENCE # [id number] APPROVAL NOTIFICATION RECEIVED VIA: Fax COPAY: $ 3.00 COPAY ASSISTANCE NEEDED?: No NOTES: Provider submitted the [facility], Medication Prior Authorization Patient: Martha Benoit Patient : 1965 Patient Address: [address] [address] (home) Medication: Humira Pen Kit PS/UV [place] F[place]: Physician: Galdino Gilliland Sent Via: Fax Kessler: Ref/Jaguar/BERE#: Medication Strength Frequency Requested: Humira Pen Kit PS/UV, Inject the contents of one syringe (80mg) subcutaneously on day 0, then inject the contents of one syringe (40mg) subcutaneously on day 8 and then every 2 weeks thereafter. Qty/Day Supply: 01/17 New Start: Yes Diagnosis & ICD-10 Code: L40.9 Psoriasis documented in this encounter Plan of Treatment Upcoming Encounters Date Type Department Care Team (Late st Contact Info) Description 02/19/2025 9:00 AM EDT TH Visit (TeleHealth) [place] [address] Wyatt Higgins MD [facility] [place] [address] documented as of this encounter Visit Diagnoses Not on filedocumented in this encounter Care Teams Sprinkling System Irrigator Relationship Specialty Start Date End Date Ruth Munoz, [employer] [address] [place] [address] PCP - General Family Medicine 02/05/19 documented as of this encounter
--- OUTSIDE RECORDS SUMMARY | 2024-05-15 11:09 | XMS_ITS | Encounter Summary ---
[place] [address] Care Team Providers Care Senior Financial Reporting Analyst Name Role Phone MunozRuth jerome Lilibeth JUAREZ Primary Care Provider + Encounter Details Date Type Department Care Team (Late st Contact Info) Description 08/20/2019 Telephone [place] [phone] Lauren Fowler RN Social History Tobacco Use [...] as of this encounter Miscellaneous Notes * Addendum Note - Judith Serrano MD - 01/31/2020 1:02 PM EDTAddended by: JUDITH SERRANO on: 01/31/2020 01:02 PM Modules accepted: Orders * Telephone Encounter - Lauren Villaseñor RN - 08/20/2019 3:25 PM EDT Pt notified, pending new rx to Dr Serrano. * Telephone Encounter - Judith Serrano MD - 08/20/2019 3:04 PM EDT Ok to prescribe 10 mg BID for her to keep A1c down. Thanks! JUDITH SERRANO MD * Telephone Encounter - Lauren Villaseñor RN - 08/20/2019 11:44 AM EDT Pt calling with confusion on glipizide dose. She states her rx has always indicated 10 mg BID but the most recent rx she received says only 10 mg daily. It looks like back in 2015 she was having difficulty swallowing pills so her notes indicate glipizide 10 mg qd/bid, then more recent notes indicate 10 mg daily, but scrips were still being sent for BID until this last scrip from 08/10/19 that was corrected to match the plan in the OV of 10 mg daily. Should pt be on 10 mg daily or BID? documented in this encounter Plan of Treatment Upcoming Encounters Date Type Department Care Team (Late st Contact Info) Description 02/19/2025 9:00 AM EDT TH Visit (TeleHealth) [place] [address] Wyatt Higgins MD [facility] [place] [address] documented as of this encounter Visit Diagnoses Diagnosis Type 2 diabetes, controlled, with neuropathy Type II or unspecified type diabetes mellitus with neurological manifestations, not stated as uncontrolled Vitamin D deficiency Unspecified vitamin D deficiency documented in this encounter Care Teams Senior Financial Reporting Analyst Relationship Specialty Start Date End Date Ruth Munoz A AND P TECHNICIAN [address] [place] [address] PCP - General Family Medicine 02/05/19 documented as of this encounter
--- OUTSIDE RECORDS SUMMARY | 2024-05-15 11:09 | XMS_ITS | Encounter Summary ---
Author Organization [facility] [place] [address] Care Team Providers Care Mechanical Engineering Intern Name Role Phone Ruth Munoz Lilibeth JUAREZ Primary Care Provider + Encounter Details Date Type Department Care Team (Late st Contact Info) Description 08/15/2019 11:30 AM EDT Laboratory Appointment Lab [address] [place] [phone] Neuropathy Social History Tobacco Use Types Packs/Day Years [...] AM EDT TH Visit (TeleHealth) [place] [phone] Wyatt Higgins MD [facility] [place] [address] documented as of this encounter Procedures Procedure Name Priority Date/Time Associated Diagnosis Comments OLIGOCLONAL BANDING BLOOD Routine 08/15/2019 11:12 AM EDT Neuropathy IGG INDEX BLOOD Routine 08/15/2019 11:12 AM EDT Neuropathy documented in this encounter Results * IgG Index Blood (08/15/2019 11:12 AM EDT) IgG Indx Bld Hold Sample in lab. [facility] Blood specimen (specimen) 08/15/2019 11:12 AM EDT 08/15/2019 11:22 AM EDT Narrative Resulting Agency Comment Spec In Lab Wyatt Higgins MD CHEMISTRY ORDERABLES Performing Organization Address City/[facility]/ZIP Co de Phone Number [facility] [place] [address] * Oligoclonal Banding Blood (08/15/2019 11:12 AM EDT) Olig Band Bld Hold Sample in lab. [facility] Blood specimen (specimen) 08/15/2019 11:12 AM EDT 08/15/2019 11:22 AM EDT Narrative Resulting Agency Comment Spec In Lab Wyatt Higgins MD CHEMISTRY ORDERABLES Performing Organization Address City/[facility]/ZIP Co de Phone Number [facility] [place] [address] documented in this encounter Visit Diagnoses Diagnosis Neuropathy Mononeuritis of unspecified site documented in this encounter Care Teams Mechanical Engineering Intern Relationship Specialty Start Date End Date Ruth Munoz APRN [address] [place] [address] PCP - General Family Medicine 02/05/19 documented as of this encounter
--- OUTSIDE RECORDS SUMMARY | 2024-05-15 11:09 | XMS_ITS | Encounter Summary ---
Author Organization [facility] [place] [address] Care Team Providers Care Scrape Gatherer Name Role Phone MunozRuth jerome Lilibeth JUAREZ Primary Care Provider + Encounter Details Date Type Department Care Team (Late st Contact Info) Description 02/18/2019 [place] [phone] Pérez Ferreira MD [facility] [place] [address] Social History Tobacco Use Types Packs/Day Years [...] AM EDT TH Visit (TeleHealth) [place] [phone] Wyatt Higgins MD [facility] [place] [address] documented as of this encounter Visit Diagnoses Not on filedocumented in this encounter Care Teams Scrape Gatherer Relationship Specialty Start Date End Date Ruth Munoz APRN [address] [place] [address] PCP - General Family Medicine 02/05/19 documented as of this encounter
--- OUTSIDE RECORDS SUMMARY | 2024-05-15 11:09 | XMS_ITS | Encounter Summary ---
Author Organization [facility] [place] [address] Care Team Providers Care Chief Security And Safety Officer Name Role Phone MunozRuth jerome Lilibeth JUAREZ Primary Care Provider + Encounter Details Date Type Department Care Team (Late st Contact Info) Description 06/17/2019 Orders [place] [phone] Cathy Dillon APRN [facility] [place] [address] Social History Tobacco Use Types Packs/Day Years [...] AM EDT TH Visit (TeleHealth) [place] [address] Wyatt Higgins MD [facility] [place] [address] documented as of this encounter Visit Diagnoses Not on filedocumented in this encounter Care Teams Chief Security And Safety Officer Relationship Specialty Start Date End Date Ruth Munoz APRN [address] [place] [address] PCP - General Family Medicine 02/05/19 documented as of this encounter
--- OUTSIDE RECORDS SUMMARY | 2024-05-15 11:09 | XMS_ITS | Encounter Summary ---
Author Organization [facility] [place] [address] Care Team Providers Care Technical Business Systems Analyst Name Role Phone MunozRuth jerome Lilibeth JUAREZ Primary Care Provider + Reason for Visit * Reason Comments Medication Refill Encounter Details Date Type Department Care Team (Late st Contact Info) Description 12/13/2019 Ref[place] [phone] Judith Reinoso MD [facility] [place] [address] Social History Tobacco Use Types Packs/Day Years [...] AM EDT TH Visit (TeleHealth) [place] [phone] Wyatt Higgins MD [facility] [place] [address] documented as of this encounter Visit Diagnoses Not on filedocumented in this encounter Care Teams Technical Business Systems Analyst Relationship Specialty Start Date End Date Ruth Munoz, [employer] OPERATOR [address] [place] [address] PCP - General Family Medicine 02/05/19 documented as of this encounter
--- OUTSIDE RECORDS SUMMARY | 2024-05-15 11:09 | XMS_ITS | Encounter Summary ---
[place] [address] Care Team Providers Care Solderer Barrel Ribs Name Role Phone AlexanderAidanantony Mcelroy APRN Primary Care Provider + Encounter Details Date Type Department Care Team (Late st Contact Info) Description 01/20/2020 Telephone [place] [phone] Nany Calderon RN Social History Tobacco Use Types Packs/Day [...] encounter Miscellaneous Notes * Telephone Encounter - Nany Calderon RN - 01/20/2020 12:11 PM EDT Ms. Benoit is s/p gastric bypass in 2015, last seen ~1 yr ago. She calls today requesting to speak to Cathy Dillon APRN. Return call to pt. She is not pleased that Cathy is not calling her back directly as she would like to voice complaints to her about the response time to her message, stating that she has been trying to speak to someone about her vitamins for over a month. She reports her PCP has resolved the issue, but she wanted Cathy to know about her complaints as she feels that follow-up has been poor.Of note, today pt left a voicemail on our line at 11:19am, and I called her back within 1 hour. documented in this encounter Plan of Treatment Upcoming Encounters Date Type Department Care Team (Late st Contact Info) Description 02/19/2025 9:00 AM EDT TH Visit (TeleHealth) [place] [address] Wyatt Higgins MD [facility] [place] [address] documented as of this encounter Visit Diagnoses Not on filedocumented in this encounter Care Teams Solderer Barrel Ribs Relationship Specialty Start Date End Date Ruth Munoz APRN [address] [place] [address] PCP - General Family Medicine 02/05/19 documented as of this encounter
--- OUTSIDE RECORDS SUMMARY | 2024-05-15 11:09 | XMS_ITS | Encounter Summary ---
Author Organization [facility] [place] [address] Care Team Providers Care Estimating Engineer Name Role Phone MunozRuth jerome Lilibeth JUAREZ Primary Care Provider + Encounter Details Date Type Department Care Team (Late st Contact Info) Description 02/05/2019 2:30 PM EDT Office [place] [address] Judith Serrano MD [facility] [place] [address] Dysuria; Type 2 diabetes, controlled, with neuropathy Social History Tobacco Use Types Packs/Day [...] Sign Reading Time Taken Comments Blood Pressure 113/59 02/05/2019 2:37 PM EDT Pulse 93 02/05/2019 2:37 PM EDT Temperature - - Respiratory Rate - - Oxygen Saturation - - Inhaled Oxygen Concentration - - Weight 83.5 kg (184 lb) 02/05/2019 2:37 PM EDT Height 160 cm (5' 3) 02/05/2019 2:37 PM EDT Body Mass Index 32.59 02/05/2019 2:37 PM EDT documented in this encounter Patient Instructions * Patient Instructions* Judith Serrano MD - 02/05/2019 2:30 PM EDT Recent Results (from the past 24 hour(s)) Iron and TIBC Result Value Ref Range Iron 30 30 - 150 mcg/dL TIBC 313 250 - 450 mcg/dL Iron Saturation 10 (L) 20 - 50 % Hemogram Result Value Ref Range WBC 11.5 (H) 4.0 - 9.5 x10(3)/mcL RBC 5.17 4.00 - 5.21 x10(6)/mcL Hemoglobin 14.0 11.7 - 15.5 gm/dL Hematocrit 44.5 35.7 - 45.8 % MCV 86.1 82.6 - 94.4 fL MCH 27.1 27.1 - 32.0 pg MCHC 31.5 (L) 31.7 - 35.0 gm/dL Platelets 251 145 - 357 x10(3)/mcL RDWSD 40.6 37.0 - 46.0 fL RDWCV 13.0 11.5 - 14.1 % MPV 10.5 7.6 - 12.9 fL nRBC % Auto 0.0 % nRBC Abs Auto 0.000 0.000 - 0.000 x10(3)/mcL Ferritin Result Value Ref Range Ferritin 46 30 - 400 ng/mL Hemoglobin A1c Result Value Ref Range Hemoglobin A1C 7.4 (H) 4.3 - 5.6 % Est Avg Gluc 166 mg/dL TSH Result Value Ref Range TSH 1.36 0.27 - 4.20 mcIU/mL Comprehensive metabolic panel (non-fasting) Result Value Ref Range Glucose Lvl 124 65 - 199 mg/dL BUN 8 8 - 18 mg/dL Creatinine 0.46 (L) 0.70 - 1.20 mg/dL Sodium 145 135 - 145 mmol/L Potassium 4.0 3.5 - 5.0 mmol/L Chloride 105 98 - 107 mmol/L CO2 26 22 - 31 mmol/L Anion Gap 14 5 - 15 mmol/L Calcium 9.5 8.5 - 10.5 mg/dL Total Protein 7.8 6.1 - 8.0 gm/dL Albumin 4.0 3.2 - 5.2 gm/dL AST 16 0 - 30 unit/L ALT 17 0 - 30 unit/L Alk Phos 108 (H) 40 - 104 unit/L Total Bilirubin 0.4 0.2 - 1.3 mg/dL eGFR 112 >=60 mL/min/1.73 m?? eGFR 130 >=60 mL/min/1.73 m?? Lipid Panel Result Value Ref Range Chol, Total 206 mg/dL Triglycerides 153 mg/dL HDL 56 mg/dL LDL Cholesterol 119 mg/dL Chol/HDL Ratio 3.7 ratio Lipid Interpretation See Note Vitamin D, 25-Hydroxy Result Value Ref Range 25-OH Vit D Total 44 30 - 100 ng/mL Vitamin B12 Result Value Ref Range Vitamin B-12 1,870 (H) 232 - 1,245 pg/mL Differential, Automated Result Value Ref Range Neutrophils % 71.4 % Neutr Abs (ANC) 8.20 (H) 1.70 - 6.10 x10(3)/mcL Lymphocytes % 20.3 % Lymphocytes Abs 2.3 0.9 - 3.2 x10(3)/mcL Monocytes % 6.3 % Monocyte Abs 0.7 0.3 - 0.9 x10(3)/mcL Eosinophils % 1.1 % Eosinophils Abs 0.1 0.0 - 0.4 x10(3)/mcL Basophils % 0.6 % Basophils Abs 0.1 0.0 - 0.1 x10(3)/mcL Immature Gran % 0.30 % Zahra Gran Abs 0.03 0.00 - 0.04 x10(3)/mcL U Albumin/Cre Ratio Result Value Ref Range Alb/Cr Ratio, Random 7 0 - 29 mcg/mg Cr U Albumin Conc, Random 3.6 mg/L U Creatinine 49 mg/dL Plan: 1. Medication: Adjustment of diabetes treatment regime: To cont 70/30 mix 15-20u qam and qpm and allow her to taper the dose by 2u if needed to keep BG at target of 90-180 range. To use Humalog pen sliding scale as needed if BG>180 while on 70/30 mix based on 1u:20 BG ratio. To cont glipizideER 10 mg qAM To increase invokana 300 mg qAM, and continue metformin 500 mg bid/tid (could not tolerate the higher dose) Ok to cont vitamin D 50,000 iu 1x/week and cont 2 of [place] MVI with iron which contains iron (she could not tolerate a separate iron supplement due to constipation). Ok to reduce B12 to every other day for now. 2. To continue all other medications, vitamin supplements as instructed,and healthy diet to keep wtdown further 3. Monitoring: to check FSBG before each meal and at bedtime. Target BG 90-150 while fasting and 80-180 pre-meal during daytime Target A1c ~7% for this patient while on insulin 4. Lab: Already checked after lab as above and will let her know the pending test results soon for 25vitamin D, B12, and annual urine microalbumin/Cr. 5. RTC: Next visit in 12 months (for 4-y post gastric bypass) or earlier needed. Will check lab before next visit for HbA1c, CBC, CMP, lipids, TSH, 25vitamin D, B12, iron/TIBC and annual urine microalbumin/Cr. documented in this encounter Progress Notes * Judith Serrano MD - 02/05/2019 2:30 PM EDT Endocrine Clinic Name: [facility] : 1965 Date: 02/05/2019 PCP: Ruth Munoz APRN Provided by: Judith Serrano MD Reason for visit: Follow-up type 2 diabetes s/p bariatric surgery 3 yrs ago (Dr. Mai on 01/04/16) with good wt loss of 60-75 bs since the surgery and BMI 29- 31 range. Diabetes treatment regimen: 70/30 mix pen 15-20 u 2x/day (and rarely using Humalog sliding scale p.r.n for correction of high BG>180) Also, metformin 500 mg 2x=> 3x/day by herself lately (1500 mg/day) => ok to increase to 1500 mg/day at next refills if needed GlipizideER 10 mg qAM, and Invokana 100 mg qd => ok to increase 300 mg daily as it works better for her. FSBG: average 140 over the past 2 weeks, ranging between 110s- 150s mg/dl Most recent HA1c: 7.5% today (was 7.5% on 02/12/18, 6.8% on 08/10/17, 7.6% on 01/1717, 7.4% on 07/05/16, 8.4% on 01/05/16, 11/03/15, 8.5% on 11/03/15). Hypoglycemia during the interval time: None (rare in 60s-70s mid-day with late lunch but no low BG at night) Diet: low fat/low carb diet Exercise: walking Complications: no changes during the interim. Prevention: same as last visit recently. She feels more hungry lately and is eating more last month and gained 9 lbs over the past year (mostly over the past mo per pt). She is still having left foot ulcer since last Aug 2018, seen fixed assets accountant monthly plus VNA weekly. Otherwise, she has gained wt back 10 lbs from 175 to 184 lbs. She could not swallow pills well but at least taking all her meds in AM as instructed and 70/30 mixlow dose 10-15u BID with good BG control (A1c 6.8% which is excellent!). Her insurance covered for 70/30 mix well. She is now 3 year post bariatric surgery and is better slowly from her foot drop/peripheral neuropathy, still using walker. She wants to lose wt further and is glad that she does not feel hungry and adjusted well to her smaller stomach. This will help reduce insulin resistance, especially when she could not tolerate metformin higher dose well (ok with 500 mg qd/bid but not a full dose of 1,000 mgbid) and also had GI side effects with byetta or bydureon in the past. Her vitamin D was better, up from 18 to 28-29 and then 70 (nl 30-100) so she already reduced vit D 50,000 iu 2x/week to weekly since Jul 2017=> 44 today. She has been taking [place] multivitamin to 2 tab daily with normal iron levels today. Denies any changes in vision, no CP, SOB, GI issues,leg swelling or foot ulcer but still having thinner scalp hairs. She already had pretty normal dilat ed eye exam with only cataract ou (mild). ROS: Please see HPI, all others negative [...] to Visit Medication Sig Dispense Refill ??? pediatric multivitamin Tablet, Chewable Take 1 tablet by mouth 2 times daily. flintstone complete multivitamin NOT flintstones with iron 180 tablet 3 ??? VITAMIN D 50,000 unit Capsule TAKE ONE CAPSULE BY MOUTH EVERY WEEK 12 capsule 3 ??? glipiZIDE (GLUCOTROL XL) 10 mg Tablet Extended Rel 24 hr TAKE ONE TABLET BY MOUTH TWICE A DAY 180 tablet 2 ??? ciclopirox (PENLAC) 8 % Solution ??? SF 5000 PLUS 1.1 % Cream BRUSH ON TEETH ONCE DAILY DIRECTED 11 ??? omeprazole (PRILOSEC) 20 mg Capsule, Delayed Release(E.C.) Take 1 capsule by mouth daily. Take 30 minutes prior to breakfast on an empty stomach 90 capsule 3 ??? pediatric multivitamin with iron Tablet, Chewable Take 1 tablet by mouth 2 times daily. Take 1 chewable COMPLETE MULTIVITAMIN TWICE DAILY 180 tablet 3 ??? INVOKANA 100 mg Tablet TAKE ONE TABLET BY MOUTH EVERY DAY 90 tablet 3 ??? insulin aspart protamine-insulin aspart 70/30 (NOVOLOG MIX 70-30 FLEXPEN) Insulin Pen Inject 10-15 Units subcutaneously 2 times daily (with meals). 30 mL 3 ??? cyanocobalamin, vitamin B-12, 500 mcg Tablet, Sublingual Place 500 mcg under the tongue daily. 90 tablet 3 ??? ferrous sulfate 325 mg (65 mg iron) Tablet Take 1 tablet by mouth daily. After a meal with multivitamin 100 tablet 3 ??? oxyCODONE-acetaminophen (PERCOCET) 10-325 mg Tablet Take 1 tablet by mouth 6 times daily. ??? gabapentin (NEURONTIN) 300 mg Capsule Take 300 mg by mouth. ??? lidocaine (LIDODERM) 5 %(700 mg/patch) Place 1 patch onto the skin every 12 hours as needed. ??? baclofen (LIORESAL) 10 mg tablet Take 10 mg by mouth 4 times daily. ??? metFORMIN (GLUCOPHAGE) 500 mg tablet Take 500 mg by mouth 2 times daily (with meals). ??? insulin lispro (HUMALOG) Solution Inject 15 Units subcutaneously. ??? [DISCONTINUED] folic acid (FOLVITE) 1 mg Tablet TAKE ONE TABLET BY MOUTH EVERY DAY EXCEPT DAY OF METHOTREXATE DOSING 1 ??? [DISCONTINUED] metHOTREXate 2.5 mg Tablet TAKE 6 TABLETS BY MOUTH EVERY WEEK 1 ??? triamcinolone (KENALOG) 0.1 % Ointment APPLY TOPICALLY TO ARMS LEGS AND ABDOMEN TWO TIMES A DAYAS NEEDED 3 ??? [DISCONTINUED] Calcium Citrate-Vitamin D3 315-250 mg-unit Tablet Take 2 tablets by mouth 2 times daily. (2) tabs 2 times daily. 360 tablet 3 No current facility-administered medications on file prior to visit. No Known Allergies Social History Socioeconomic History ??? Marital status: Spouse name: None ??? Number of children: None ??? Years of education: None ??? Highest education level: None Occupational History ??? Occupation: disabled Social Needs ??? Financial resource strain: None ??? Food insecurity: Worry: None Inability: None ??? Transportation needs: Medical: None Non-medical: None Tobacco Use ??? Smoking status: Never Smoker ??? Smokeless tobacco: Never Used Substance and Sexual Activity ??? Alcohol use: No ??? Drug use: No ??? Sexual activity: None Comment: deferred Lifestyle ??? Physical activity: Days per week: None Minutes per session: None ??? Stress: None Relationships ??? Social connections: Talks on phone: None Gets together: None Attends islam service: None Active member of club or organization: None Attends meetings of clubs or organizations: None Relationship status: None ??? Intimate partner violence: Fear of current or ex partner: None Emotionally abused: None Physically abused: None Forced sexual activity: None Other Topics Concern ??? None Social History Narrative ??? None FAMILY HISTORY Family History Problem Relation Age of Onset ??? Diabetes Mother ??? Diabetes Father ??? Diabetes Other ??? High Cholesterol Other ??? Hypertension Other ??? Stroke Other ??? Obesity Other ??? Psoriasis Other ??? * Other congenital malformation in her son/kidney stone Physical exam BP 113/59 Pulse 93 Ht 160 cm (5' 3) Wt 83.5 kg (184 lb) BMI 32.59 kg/m?? Appearance: Non-obese, pleasant, NAD, still having slight thin scalp hairs, generalized psoriasis. HEENT: PERRLA, EOMI Neck: no goiter or lymphadenopathy Cardiac: normal S1, S2, no murmur Chest: CTA, no wheeze or crackle. Abdomen: benign, NT, ND Ext: no pitting edema + small left foot ulcer - healing slowly Neuro: mild weakness, depressed reflexes Skin: + dry skin Recent labs Recent Results (from the past 24 hour(s)) Iron and TIBC Result Value Ref Range Iron 30 30 - 150 mcg/dL TIBC 313 250 - 450 mcg/dL Iron Saturation 10 (L) 20 - 50 % Hemogram Result Value Ref Range WBC 11.5 (H) 4.0 - 9.5 x10(3)/mcL RBC 5.17 4.00 - 5.21 x10(6)/mcL Hemoglobin 14.0 11.7 - 15.5 gm/dL Hematocrit 44.5 35.7 - 45.8 % MCV 86.1 82.6 - 94.4 fL MCH 27.1 27.1 - 32.0 pg MCHC 31.5 (L) 31.7 - 35.0 gm/dL Platelets 251 145 - 357 x10(3)/mcL RDWSD 40.6 37.0 - 46.0 fL RDWCV 13.0 11.5 - 14.1 % MPV 10.5 7.6 - 12.9 fL nRBC % Auto 0.0 % nRBC Abs Auto 0.000 0.000 - 0.000 x10(3)/mcL Ferritin Result Value Ref Range Ferritin 46 30 - 400 ng/mL Hemoglobin A1c Result Value Ref Range Hemoglobin A1C 7.4 (H) 4.3 - 5.6 % Est Avg Gluc 166 mg/dL TSH Result Value Ref Range TSH 1.36 0.27 - 4.20 mcIU/mL Comprehensive metabolic panel (non-fasting) Result Value Ref Range Glucose Lvl 124 65 - 199 mg/dL BUN 8 8 - 18 mg/dL Creatinine 0.46 (L) 0.70 - 1.20 mg/dL Sodium 145 135 - 145 mmol/L Potassium 4.0 3.5 - 5.0 mmol/L Chloride 105 98 - 107 mmol/L CO2 26 22 - 31 mmol/L Anion Gap 14 5 - 15 mmol/L Calcium 9.5 8.5 - 10.5 mg/dL Total Protein 7.8 6.1 - 8.0 gm/dL Albumin 4.0 3.2 - 5.2 gm/dL AST 16 0 - 30 unit/L ALT 17 0 - 30 unit/L Alk Phos 108 (H) 40 - 104 unit/L Total Bilirubin 0.4 0.2 - 1.3 mg/dL eGFR 112 >=60 mL/min/1.73 m?? eGFR 130 >=60 mL/min/1.73 m?? Lipid Panel Result Value Ref Range Chol, Total 206 mg/dL Triglycerides 153 mg/dL HDL 56 mg/dL LDL Cholesterol 119 mg/dL Chol/HDL Ratio 3.7 ratio Lipid Interpretation See Note Vitamin D, 25-Hydroxy Result Value Ref Range 25-OH Vit D Total 44 30 - 100 ng/mL Vitamin B12 Result Value Ref Range Vitamin B-12 1,870 (H) 232 - 1,245 pg/mL Differential, Automated Result Value Ref Range Neutrophils % 71.4 % Neutr Abs (ANC) 8.20 (H) 1.70 - 6.10 x10(3)/mcL Lymphocytes % 20.3 % Lymphocytes Abs 2.3 0.9 - 3.2 x10(3)/mcL Monocytes % 6.3 % Monocyte Abs 0.7 0.3 - 0.9 x10(3)/mcL Eosinophils % 1.1 % Eosinophils Abs 0.1 0.0 - 0.4 x10(3)/mcL Basophils % 0.6 % Basophils Abs 0.1 0.0 - 0.1 x10(3)/mcL Immature Gran % 0.30 % Zahra Gran Abs 0.03 0.00 - 0.04 x10(3)/mcL U Albumin/Cre Ratio Result Value Ref Range Alb/Cr Ratio, Random 7 0 - 29 mcg/mg Cr U Albumin Conc, Random 3.6 mg/L U Creatinine 49 mg/dL Assessment: 53 y.o. lady with Diabetes Type 2 s/p gastric bypass surgery 3 year ago with significant wt loss down 60-85 lbs from 250 to 184 lbs today with BMI 29-31 range. A1c has been reasonable 6.8-7.6% range over the past 2-3 yrs with very low dose insulin 70/30 mix 15-20u bid and no need for sliding scale at all. She is still having good c-peptide 2.9 from her own insulin production which is good news. She is very pleased with her wt result and wants to lose more wt further and to keep A1c < 6.5-7% for her diabetic neuropathy. Complication Risk Status: complications present +sever peripheral neuropathy in both feet and walking with walker to help her balance Also, treated for chronic vttamin D deficiency (25vitamin D down 18 and then better at 38-47 and then better at 70 in Jul 2017 => 44 today, and already tapered vitamin D 50,000 iu 2x/wk to weekly per bariatric team. Her B12 was trending down from 400s to 300s and we already gave her B12 injection x1 on 03/09/16 as a booster dose for her neuropathy and recent lab showed normal B12 at 448 in => 1,870 today so she can reduce B12 to qod for now. Plan: 1. Medication: Adjustment of diabetes treatment regime: To cont 70/30 mix 15-20u qam and qpm and allow her to taper the dose by 2u if needed to keep BG at target of 90-180 range. To use Humalog pen sliding scale as needed if BG>180 while on 70/30 mix based on 1u:20 BG ratio. To cont glipizideER 10 mg qAM To increase invokana 300 mg qAM, and continue metformin 500 mg bid/tid (could not tolerate the higher dose) Ok to cont vitamin D 50,000 iu 1x/week and cont 2 of [place] MVI with iron which contains iron (she could not tolerate a separate iron supplement due to constipation). Ok to reduce B12 to every other day for now. 2. To continue all other medications, vitamin supplements as instructed,and healthy diet to keep wtdown further 3. Monitoring: to check FSBG before each meal and at bedtime. Target BG 90-150 while fasting and 80-180 pre-meal during daytime Target A1c ~7% for this patient while on insulin 4. Lab: Already checked after lab as above and will let her know the pending test results soon for 25vitamin D, B12, and annual urine microalbumin/Cr. 5. RTC: Next visit in 12 months (for 4-y post gastric bypass) or earlier needed. Will [...] Addendum Note - Judith Serrano MD - 02/05/2019 2:30 PM EDTAddended by: JUDITH SERRANO on: 02/07/2019 11:58 AM Modules accepted: Orders * Addendum Note - Judith Serrano MD - 02/05/2019 2:30 PM EDTAddended by: JUDITH SERRANO on: 07/11/2019 05:29 PM Modules accepted: Orders documented in this encounter Plan of Treatment Upcoming Encounters Date Type Department Care Team (Late st Contact Info) Description 02/19/2025 9:00 AM EDT TH Visit (TeleHealth) [place] [address] Wyatt Higgins MD [facility] [place] [address] documented as of this encounter Results * (ABNORMAL) Hemoglobin A1c (07/11/2019 5:46 PM EDT) [facility] Hemoglobin A1C 7.3(H) 4.3 - 5.6 % [facility] Comment: Reference Range: 4.3 - [...] 36: Suppl. 1, S67-74 Est Avg Gluc 162 mg/dL [facility] Comment: eAG equivalents [...] into estimated average glucose values. ??Diabetes Care 2008:31(8):3281-0645. Blood specimen (specimen) 07/11/2019 5:46 PM EDT 07/11/2019 5:55 PM EDT Narrative Resulting Agency Comment Spec In Lab Judith Serrano MD CHEMISTRY ORDERAB LES [facility] [place] [place] [address] documented in this encounter Visit Diagnoses Diagnosis Dysuria Type 2 diabetes, controlled, with neuropathy Type II or unspecified type diabetes mellitus with neurological manifestations, not stated as uncontrolled documented in this encounter Care Teams Estimating Engineer Relationship Specialty Start Date End Date Ruth Munoz APRN [address] [place] [address] PCP - General Family Medicine 02/05/19 documented as of this encounter
--- OUTSIDE RECORDS SUMMARY | 2024-05-15 11:09 | XMS_ITS | Encounter Summary ---
Author Organization [facility] [place] [address] Care Team Providers Care Patient Accounts Specialist Name Role Phone MunozRuth jerome Lilibeth JUAREZ Primary Care Provider + Reason for Visit * Reason Comments Medication Refill Encounter Details Date Type Department Care Team (Late st Contact Info) Description 02/18/2020 Refill [place] [id number] Judith Reinoso MD [facility] [place] [address] Social History Tobacco Use Types Packs/Day Years [...] AM EDT TH Visit (TeleHealth) [place] [id number] Wyatt Higgins MD [facility] [place] [place] [address] documented as of this encounter Visit Diagnoses Not on filedocumented in this encounter Care Teams Patient Accounts Specialist Relationship Specialty Start Date End Date Ruth Munoz, PARTS FINISHER [address] [place] [address] PCP - General Family Medicine 02/05/19 documented as of this encounter
--- OUTSIDE RECORDS SUMMARY | 2024-05-15 11:09 | XMS_ITS | Encounter Summary ---
Author Organization [facility] [address] Care Team Providers Care Family Law Specialist Name Role Phone Ruth Munoz APRN Primary Care Provider + Reason for Referral * Physical Therapy (Routine) - Specialty Diagnoses / Procedures Referred By Patricio [email or web address] Referred To Contact Physical Therapy Diagnoses Polyneuropathy Pérez Ferreira MD [facility] [place] [address] Referral ID Status Reason Start Date Expiration Date V isits Requested Visits Authorized [id number] Evaluate and Treat 02/14/2019 08/13/2019 12 12 Reason for Visit * Reason Onset Date Comments Other 02/14/2019 Encounter Details Date Type Department Care Team (Late st Contact Info) Description 02/14/2019 Telephone [place] [address] Pérez Ferreira MD [facility] [address] NEUROLOGY DEPT [place], [place] [id number] Other Social History Tobacco Use Types Packs/Day [...] encounter Miscellaneous Notes * Telephone Encounter - Sonam Dover RN - 02/14/2019 12:14 PM EDT Call placed to patient/caller. Made aware that per Made aware that per Dr. Ferreira: I fully support and encourage PT for her. I had recommended it at her visit but she declined at the time. I'm glad she's interested in PT now. Hopefully it will help her in multiple ways. Patient/caller advised to call for any other concerns. Patient/caller in agreement and verbalized understanding of the plan. PT referral faxed to [facility] PT. * Telephone Encounter - Sonam Dover RN - 02/14/2019 11:06 AM EDT Call placed to patient/caller. Requesting for an order for a lightweight wheelchair for her neuropathy. Made aware that for Medicaid to cover this, she is needing a PT referral. This will facilitate giving as a recommendation as to what kind of wheelchair she needs. Verbalized understanding. Report forwarded to Dr. Ferreira. * Telephone Encounter - Purvi Brown - 02/14/2019 10:18 AM EDT Clinical It Application Support Analyst Message Caller: Martha Felix not Pt / Relation to pt: Call back Number: [phone] Best time to reach caller: Anytime Reason for call: Needing a order for a wheelchair. Message/information for the nurse: [facility] informed her that she is needing her Neurologist to order the type of chair that is needed as the patient cannot lift a heavy chair due to hernerve disorder. Would like to discuss. Disposition of Call ?? Routine Message sent to the Nurse documented in this encounter Plan of Treatment Upcoming Encounters Date Type Department Care Team (Late st Contact Info) Description 02/19/2025 9:00 AM EDT TH Visit (TeleHealth) [place] [address] Wyatt Higgins MD [facility] [place] [address] Scheduled Referrals Name Type Priority Associated Diagnoses Orde r Schedule Referral to Physical Therapy Outpatient Referral Routine Polyneuropathy Ordered: 02/14/2019 documented as of this encounter Visit Diagnoses Diagnosis Polyneuropathy Unspecified hereditary and idiopathic peripheral neuropathy documented in this encounter Care Teams Family Law Specialist Relationship Specialty Start Date End Date Ruth Munoz APRN [address] [place] [address] PCP - General Family Medicine 02/05/19 documented as of this encounter
--- OUTSIDE RECORDS SUMMARY | 2024-05-15 11:09 | XMS_ITS | Encounter Summary ---
Author Organization [facility] [place] [address] Care Team Providers Care Graining Operator Name Role Phone AlexanderAidanantony Mcelroy APRN Primary Care Provider + Encounter Details Date Type Department Care Team (Late st Contact Info) Description 02/24/2020 Telephone Dermatology at [address] [phone] Benita Salazar LPN Social History [...] Telephone Encounter - Benita Salazar LPN - 02/24/2020 4:00 PM EDT Re: Humira Patient left message stating she had requested to administer the Humira by herself; not a pen.(syringe) She called [facility] and they contacted Dr. Gilliland. He said he wanted her to use the PEN. I'm not going to use the pen. 4:30 PM Return call to patient. Advised her Dr. Gilliland will ONLY prescribe Humira using the PEN. She voicedOK I'll use it. Patient voiced understanding. documented in this encounter Plan of Treatment Upcoming Encounters Date Type Department Care Team (Late st Contact Info) Description 02/19/2025 9:00 AM EDT TH Visit (TeleHealth) [place] [address] Wyatt Higgins MD [facility] [place] [address] documented as of this encounter Visit Diagnoses Not on filedocumented in this encounter Care Teams Graining Operator Relationship Specialty Start Date End Date Ruth Munoz, INSPECTOR [employer] [address] [place] [address] PCP - General Family Medicine 02/05/19 documented as of this encounter
--- OUTSIDE RECORDS SUMMARY | 2024-05-15 11:09 | XMS_ITS | Encounter Summary ---
[place] [address] Care Team Providers Care Stock Blender Name Role Phone MunozRuth jerome Lilibeth JUAREZ Primary Care Provider + Encounter Details Date Type Department Care Team (Late st Contact Info) Description 02/24/2020 Telephone Dermatology at [place] [address] [facility] [id number] Galdino Gilliland MD [address] [facility] [place] [address] Social History Tobacco Use Types Packs/Day Years [...] AM EDT TH Visit (TeleHealth) [place] [address] Wyatt Higgins MD [facility] [place] [address] documented as of this encounter Visit Diagnoses Not on filedocumented in this encounter Care Teams Stock Blender Relationship Specialty Start Date End Date Ruth Munoz APRN [address] [place] [address] PCP - General Family Medicine 02/05/19 documented as of this encounter
--- OUTSIDE RECORDS SUMMARY | 2024-05-15 11:09 | XMS_ITS | Encounter Summary ---
[place] [address] Care Team Providers Care Diesel Engine Operator Name Role Phone Ruth Munoz Lilibeth JUAREZ Primary Care Provider + Encounter Details Date Type Department Care Team (Late st Contact Info) Description 04/23/2019 Specialty [place] [phone] Sravanthi Cardoza RPH Social History Tobacco Use [...] Progress Notes * Sravanthi Cardoza RPH - 04/23/2019 11:42 AM EDT Clinical Management Plan: Transfer of Care/Discharge Specialty Services Specialty Pharmacy Consultation; Sravanthi Cardoza RPH Comprehensive Medication Management (CMM) Martha Benoit [address] [facility] [address] Telephone Information: Work Phone Not on file. Is the patient transferring services to a different Specialty Pharmacy or discontinuing the medication? Yes. Medication: Humira Reason for discontinuation or transfer: Patient did not start Humira due to a detention foot infection. She is still being monitored. Approximate date of discontinuation or transfer: 04/23/19 Patient's response to therapy: N/A as she has not started Summary of services provided by [facility]: We provided a first fill and initial counseling. Summary of on-going needs: Patient has our number should she want to start her medication. She willmost likely need a new PA. Referral for additional services (if applicable): no Instructions provided to patient about discharge/transfer: yes - She was given our contact information should she start Humira Provider aware of discontinuation or transfer: yes Patient understands no changes to current drug regimen were made at the appointment and that [facility] (summary located at top of note) for provider review and follow up. Sravanthi Cardoza RPH 04/23/19 11:44 AM documented in this encounter Plan of Treatment Upcoming Encounters Date Type Department Care Team (Late st Contact Info) Description 02/19/2025 9:00 AM EDT TH Visit (TeleHealth) [place] [address] Wyatt Higgins MD [facility] [place] [address] documented as of this encounter Visit Diagnoses Not on filedocumented in this encounter Care Teams Diesel Engine Operator Relationship Specialty Start Date End Date Ruth Munoz APRN [address] [place] [address] PCP - General Family Medicine 02/05/19 documented as of this encounter
--- OUTSIDE RECORDS SUMMARY | 2024-05-15 11:09 | XMS_ITS | Encounter Summary ---
[place] [address] Care Team Providers Care Corporate Securities Research Analyst Name Role Phone MunozRuth jerome LARRY Primary Care Provider + Reason for Visit * Reason Onset Date Comments Medication Refill 08/20/2019 Encounter Details Date Type Department Care Team (Late st Contact Info) Description 08/20/2019 [place] [address] Lauren Fowler RN Social History Tobacco Use [...] Encounter - Lauren Villaseñor RN - 08/20/2019 3:26 PM EDT Images from the original note were not included. Judith Serrano MD to [facility] Nurse ?? 08/20/19 3:04 PM Note Ok to prescribe 10 mg BID for her to keep A1c down. Thanks! JUDITH SERRANO MD ?? documented in this encounter Plan of Treatment Upcoming Encounters Date Type Department Care Team (Late st Contact Info) Description 02/19/2025 9:00 AM EDT TH Visit (TeleHealth) [place] [address] Wyatt Higgins MD [facility] [place] [address] documented as of this encounter Visit Diagnoses Not on filedocumented in this encounter Care Teams Corporate Securities Research Analyst Relationship Specialty Start Date End Date Ruth Munoz, FEATHER DRYING MACHINE OPERATOR [address] [place] [address] PCP - General Family Medicine 02/05/19 documented as of this encounter
--- OUTSIDE RECORDS SUMMARY | 2024-05-15 11:09 | XMS_ITS | Encounter Summary ---
Author Organization [facility] [place] [address] Care Team Providers Care Poultry Processing Supervisor Name Role Phone MunozRuth jerome Lilibeth JUAREZ Primary Care Provider + Encounter Details Date Type Department Care Team (Late st Contact Info) Description 02/11/2019 Orders Only [place] [phone] Cathy Dillon APRN [facility] [place] [address] Social History Tobacco Use Types Packs/Day Years [...] AM EDT TH Visit (TeleHealth) [place] [phone] Wyatt Higgins MD [facility] [place] [address] documented as of this encounter Visit Diagnoses Not on filedocumented in this encounter Care Teams Poultry Processing Supervisor Relationship Specialty Start Date End Date Ruth Munoz APRN [address] [place] [address] PCP - General Family Medicine 02/05/19 documented as of this encounter
--- OUTSIDE RECORDS SUMMARY | 2024-05-15 11:09 | XMS_ITS | Encounter Summary ---
Author Organization [facility] [place] [address] Care Team Providers Care Nursing Assoc Name Role Phone MunozAidan jeromeantony Mcelroy APRN Primary Care Provider + Reason for Visit * Reason Comments Procedure Encounter Details Date Type Department Care Team (Late st Contact Info) Description 08/15/2019 10:30 AM EDT Procedure [place] [address] [facility] [place] [address] Neuropathy Social History Tobacco Use Types Packs/Day [...] Sign Reading Time Taken Comments Blood Pressure 114/64 08/15/2019 10:08 AM EDT Pulse 85 08/15/2019 10:08 AM EDT Temperature - - Respiratory Rate - - Oxygen Saturation - - Inhaled Oxygen Concentration - - Weight 81.1 kg (178 lb 12.7 oz) 08/15/2019 10:08 AM EDT With shoes - Patient did not want to remove Height 160.5 cm (5' 3.19) 08/15/2019 1 0:08 AM EDT With shoes - Patient did not want to remove Body Mass Index 31.48 08/15/2019 10:08 AM EDT documented in this encounter Procedure Notes * Elva Johnson MD - 08/15/2019 10:30 AM EDTAssociated Order(s): Lumbar Puncture Pre-Procedure Diagnose(s): Neuropathy Post-Procedure Diagnose(s): Neuropathy Lumbar Puncture Date/Time: 08/15/2019 10:53 AM Performed by: Elva Johnson MD Authorized by: Wyatt Higgins MD [place] Protocol: Written consent obtained?: Yes Risks and benefits: Risks, benefits and alternatives were discussed Consent given by: Patient Patient states understanding of procedure being performed: Yes Patient's understanding of procedure matches consent: Yes Procedure consent matches procedure scheduled: Yes Relevant documents present and verified: Yes Test results available and properly labeled: Yes Site marked: Yes Imaging studies available: Yes Patient identity confirmed: Verbally with patient Time out: Immediately prior to the procedure a time out was called A time out verifies correct patient, procedure, equipment, support architect and site/side marked as required: Indications: LP Indications: Weakness Anesthesia: Anesthesia: Local infiltration Local anesthetic: Lidocaine 1% without epinephrine Anesthetic total (ml): 4 Patient sedated: No Procedure Details: Preparation: Patient was prepped and draped in usual sterile fashion Lumbar space: L3-L4 interspace Patient's position: Left lateral decubitus Needle gauge: 22 Needle type: Sprotte tip Needle length (in): 3.5 Number of attempts: 1 Opening pressure (cm H2O): 16.8 Fluid appearance: Blood-tinged then clearing Tubes of fluid: 4 Total volume (ml): 8.5 CSF Labs obtained: Cell Count-CSF, Protein-CSF, Glucose-CSF, Culture-CSF, Oligoclonal Band (Index) and IgG Index Post LP Procedure: Rolled gauze and adhesive bandage applied, Pressure dressing, Stylet repaced andneedle withdrawn, Site cleaned and Written and verbal instructions given to patient Performed by: Attending and resident (Dr. Kim - PGY 1 IM Resident ) Attestation: I was present during the entire procedure by a resident or fellow documented in this encounter Plan of Treatment Upcoming Encounters Date Type Department Care Team (Late st Contact Info) Description 02/19/2025 9:00 AM EDT TH Visit (TeleHealth) [place] [address] [facility] [place] [address] documented as of this encounter Procedures Procedure Name Priority Date/Time Associated Diagnosis Comments LYME IGG & IGM ANTIBODY Routine 08/15/2019 11:12 AM EDT HC CSF CELL COUNT Routine 08/15/2019 10: 49 AM EDT Neuropathy CSF CELL COUNT Routine 08/15/2019 10:49 AM EDT Neuropathy CSF DESC 4 Routine 08/15/2019 10:49 AM EDT Neuropathy CSF DESC 3 Routine 08/15/2019 10:49 AM EDT Neuropathy CSF DESC 2 Routine 08/15/2019 10:49 AM EDT Neuropathy CSF DESC 1 Routine 08/15/2019 10:49 AM EDT Neuropathy HC PCH CSF OLIG Routine 08/15/2019 10:49 AM EDT Neuropathy HC P[facility] CSF INDEX IGG Routine 08/15/2019 10:49 AM EDT Neuropathy HC CONC. FOR INFECTIOUS AGENTS Routine 08/15/2019 10:49 AM EDT Neuropathy HC PROTEIN, CSF Routine 08/15/2019 10:49 AM EDT Neuropathy HC GLUCOSE, CSF Routine 08/15/2019 10:49 AM EDT Neuropathy LUMBAR PUNCTURE Routine 08/15/2019 10:30 AM EDT Neuropathy documented in this encounter Results * Lyme IgG & IgM Antibody (08/15/2019 11:12 AM EDT) Lyme Screening Antibody Neg Neg [facility] Blood specimen (specimen) Venous Draw / Unknown 08/15/2019 11:12 AM EDT 08/16/2019 7:42 AM EDT Narrative Resulting Agency Comment Spec In Lab Prince Sorensen MD IMMUNOLOGY ORDER AMY Performing Organization Address [facility] Co de Phone Number [facility] [place] [address] * CSF Cell Count (08/15/2019 10:49 AM EDT) Tube # Ct CSF 4 [facility] Nucleated CSF CT 1 0 - 5 /mcl [facility] Comment: If Nucleated CSF CT result equals Zero, no smear is made and no Differential is performed. If Nucleated CSF CT result is 1-5 / mcL, a smear is made and scanned but no results are reported unless abnormalities are noted. If Nucleated CSF CT result is 6 /mcL or greater, a smear is made and manual differential is performed and reported. Nucleated CSF CT results on a CSF fluid must be correlated with clinical condition. RBC CSF CT 70 /mcl [facility] Cerebrospinal fluid specimen (specimen) 08/15/2019 10:49 AM EDT 08/15/2019 11:10 AM EDT Narrative Resulting Agency Comment Spec In Lab Prince Sorensen MD BODY FLUIDS AND STOOLS ORDERABLES Performing Organization Address [facility] Co de Phone Number [facility] [place] [address] * CSF DESC 4 (08/15/2019 10:49 AM EDT) Tube Num CSF #4 4 [facility] Color CSF #4 Colorless Colorless [facility] Appear CSF #4 Clear Clear [facility] Tot Vol CSF #4 1.8 mL [facility] Cerebrospinal fluid specimen (specimen) 08/15/2019 10:49 AM EDT 08/15/2019 11:10 AM EDT Narrative Resulting Agency Comment Spec In Lab Prince Sorensen MD BODY FLUIDS AND STOOLS ORDERABLES Performing Organization Address [facility] Co de Phone Number [facility] [place] [address] * CSF DESC 3 (08/15/2019 10:49 AM EDT) Tube Num CSF #3 3 [facility] Color CSF #3 Colorless Colorless [facility] Appear CSF #3 Clear Clear [facility] Tot Vol CSF #3 1.8 mL [facility] Cerebrospinal fluid specimen (specimen) 08/15/2019 10:49 AM EDT 08/15/2019 11:10 AM EDT Narrative Resulting Agency Comment Spec In Lab Prince Sorensen MD BODY FLUIDS AND STOOLS ORDERABLES Performing Organization Address [facility] Co de Phone Number [facility] [place] [address] * CSF DESC 2 (08/15/2019 10:49 AM EDT) Tube Num CSF #2 2 [facility] Color CSF #2 Colorless Colorless [facility] Appear CSF #2 Clear Clear [facility] Tot Vol CSF #2 2.0 mL [facility] Cerebrospinal fluid specimen (specimen) 08/15/2019 10:49 AM EDT 08/15/2019 11:10 AM EDT Narrative Resulting Agency Comment Spec In Lab Prince Sorensen MD BODY FLUIDS AND STOOLS ORDERABLES Performing Organization Address [facility] Co de Phone Number [facility] [place] [address] * CSF DESC 1 (08/15/2019 10:49 AM EDT) Tube Num CSF #1 1 [facility] Color CSF #1 Colorless Colorless [facility] Appear CSF #1 Clear Clear [facility] Tot Vol CSF #1 2.0 mL [facility] Cerebrospinal fluid specimen (specimen) 08/15/2019 10:49 AM EDT 08/15/2019 11:10 AM EDT Narrative Resulting Agency Comment Spec In Lab Prince Sorensen MD BODY FLUIDS AND STOOLS ORDERABLES Performing Organization Address [facility] Co de Phone Number [facility] [place] [address] * IgG Index CSF (08/15/2019 10:49 AM EDT) IgG Index, CSF Test ? Result ?Flag ??Unit ? RefValue Cerebrospinal Fl, CSF, IgG Index ??IgG Index, CSF ? 0.46 ? <=0.85 ??IgG, CSF ? 2.9 ? mg/dL ?<=8.1 ??Albumin, CSF ? 22.6 ?mg/dL ?<=27.0 ??IgG/Albumin, CSF ? 0.13 ? <=0.21 ??Synthesis Rate, CSF ?0.00 ?mg/24 h ??<=12 ??IgG, S ? 1170 ?mg/dL ?767 - 1590 ??Albumin, S ? 4200 ?mg/dL ?3200 - 4800 ??IgG/Albumin, S ? 0.28 ? <=0.40 ?Test Performed by: ?[facility] [address] ?[address] , [place] [address] ?Tower Crane Operator: Jose Sands M.D. Ph.D.; CLIA# [id number] [facility] Charles Review 08/15/2019 10:4 9 AM EDT 08/16/2019 12:03 PM EDT Narrative Resulting Agency Comment Spec In Lab Wyatt Higgins MD BODY FLUIDS AND STOO LS ORDERABLES Performing Organization Address [facility] Co de Phone Number [facility] [place] [address] * CSF Culture (08/15/2019 10:49 AM EDT) Central Nervous System Culture No growth [facility] Gram Stain Cytocentrifuge Gram Stain performed No Neutrophils seen. No microorganisms seen. [facility] Cerebrospinal fluid specimen (specimen) 08/15/2019 10:49 AM EDT 08/15/2019 11:35 AM EDT Narrative Resulting Agency Comment Spec In Lab Wyatt Higgins MD MICROBIOLOGY - GENER AL ORDERABLES Performing Organization Address [facility] Co de Phone Number [facility] [place] [address] * Protein Level CSF (08/15/2019 10:49 AM EDT) T Protein, CSF 42 15 - 45 mg/dL [facility] Xanthochromia Neg [facility] Cerebrospinal fluid specimen (specimen) 08/15/2019 10:49 AM EDT 08/15/2019 11:10 AM EDT Narrative Resulting Agency Comment Spec In Lab Wyatt Higgins MD BODY FLUIDS AND STOO LS ORDERABLES Performing Organization Address [facility] Co de Phone Number [facility] [place] [place] [address] * Glucose Level CSF (08/15/2019 10:49 AM EDT) Glucose, CSF 101 mg/dL [facility] Comment:CSF at equilibrium e quals approximately 60-80% of plasma glucose. Cerebrospinal fluid specimen (specimen) 08/15/2019 10:49 AM EDT 08/15/2019 11:10 AM EDT Narrative Resulting Agency Comment Spec In Lab Wyatt Higgins MD BODY FLUIDS AND STOO LS ORDERABLES [facility] [place] [place] [address] * Oligoclonal Banding CSF (08/15/2019 10:49 AM EDT) Oligo Bands CSF Test ? Result ?Flag ??Unit ? RefValue Oligoclonal Banding ??Serum Bands ?0 ? bands ??CSF Bands ?0 ? bands ??CSF Olig Bands Interpretation ?0 ? bands ?<4 ?The oligoclonal band assay detected 3 or fewer unique IgG ?bands in the CSF. This is a negative result. ?Test Performed by: ?[facility] ?[address] [place] [address] ?Tower Crane Operator: Jose Sands M.D. Ph.D.; CLIA# [id number] [facility] [place] Review 08/15/2019 10:4 9 AM EDT 08/16/2019 12:03 PM EDT Narrative Resulting Agency Comment Spec In Lab Wyatt Higgins MD BODY FLUIDS AND STOO LS ORDERABLES [facility] [place] [address] * LUMBAR PUNCTURE (08/15/2019 10:30 AM EDT) Narrative Elva Johnson MD - 08/15/2019 10:30 AM EDT Elva Johnson MD ? 08/15/2019 10:54 AM Lumbar Puncture Date/Time: 08/15/2019 10:53 AM Performed by: Elva Johnson MD Authorized by: Wyatt Higgins MD [place] Protocol: ??Written consent obtained?: Yes ?Risks and benefits: Risks, benefits and alternatives were discussed ?Consent given by: ??Patient ??Patient states understanding of procedure being performed: Yes ?Patient's understanding of procedure matches consent: Yes ?Procedure consent matches procedure scheduled: Yes ?Relevant documents present and verified: Yes ?Test results available and properly labeled: Yes ?Site marked: Yes ?Imaging studies available: Yes ?Patient identity confirmed: ??Verbally with patient ??Time out: Immediately prior to the procedure a time out was called ?? A time out verifies correct patient, procedure, equipment, support architect and site/side marked as required: Indications: ??LP Indications: ??Weakness Anesthesia: ??Anesthesia: ??Local infiltration ??Local anesthetic: ??Lidocaine 1% without epinephrine ??Anesthetic total (ml): ??4 ??Patient sedated: No ?? Procedure Details: ??Preparation: Patient was prepped and draped in usual sterile fashion ?Lumbar space: ??L3-L4 interspace ??Patient's position: ??Left lateral decubitus ??Needle gauge: ??22 ??Needle type: ??Sprotte tip ??Needle length (in): ??3.5 ??Number of attempts: ??1 ??Opening pressure (cm H2O): ??16.8 ??Fluid appearance: ??Blood-tinged then clearing ??Tubes of fluid: ??4 ??Total volume (ml): ??8.5 ??CSF Labs obtained: ??Cell Count-CSF, Protein-CSF, Glucose-CSF, Culture-CSF, Oligoclonal Band (Index) and IgG Index ??Post LP Procedure: ??Rolled gauze and adhesive bandage applied, Pressure dressing, Stylet repaced and needle withdrawn, Site cleaned and Written and verbal instructions given to patient ??Performed by: ??Attending and resident (Dr. Kim - PGY 1 IM Resident ) ??Attestation: ??I was present during the entire procedure by a resident or fellow Wyatt Higgins MD PROCEDURE/MINOR SURG ICAL ORDERABLES documented in this encounter Visit Diagnoses Diagnosis Neuropathy Mononeuritis of unspecified site documented in this encounter Care Teams Nursing Assoc Relationship Specialty Start Date End Date Ruth Munoz, YARN WASHER [address] [place] [address] PCP - General Family Medicine 02/05/19 documented as of this encounter
--- OUTSIDE RECORDS SUMMARY | 2024-05-15 11:09 | XMS_ITS | Encounter Summary ---
Author Organization [facility] [place] [address] Care Team Providers Care Egg Smeller Name Role Phone Ruth Munoz Lilibeth JUAREZ Primary Care Provider + Reason for Visit * Reason Onset Date Comments Other 02/27/2019 Encounter Details Date Type Department Care Team (Late st Contact Info) Description 02/27/2019 Tele[place] [address] Pérez Ferreira MD [facility] [place] [address] Other Social History Tobacco Use Types Packs/Day [...] Telephone Encounter - Sonam Dover RN - 02/27/2019 3:[address] Ferreira: That's too bad, but I'm glad she switched back to gabapentin. Hopefully that helps enough! * Telephone Encounter - Sonam Dover RN - 02/27/2019 12:44 PM EDT [place] - 02/05/19 [place] - none scheduled Spoke to patient reported that she is not liking the effect of Lyrica on her. Reported feeling depressed and having anxiety since she started taking it. Reported that she is stopping it. And will stay on Gabapentin 600 mg nightly. Advised to call for any other concerns. Report forwarded to Dr. Ferreira. * Telephone Encounter - Purvi Brown - 02/27/2019 9:05 AM EDT Clinical [place] Message Caller: Martha If not Pt / Relation to pt: Call back Number: [phone] Best time to reach caller: Anytime (If pt/caller is reporting SYMPTOMS use appropriate SYMPTOMS message tool) Reason for call: Medication Issue Info for Nurse Medication of Concern: Lyrica What are the current questions/issues/concerns: States she had been on in the past and had signs ofdepression then and it is starting to come back now. States that it is giving her anxiety as well. Additional information or questions for the nurse: Would like to stay on previous medication, as she believes that the Lyrica does not set well with her. Disposition of Call ? Routine message sent to nurse documented in this encounter Plan of Treatment Upcoming Encounters Date Type Department Care Team (Late st Contact Info) Description 02/19/2025 9:00 AM EDT TH Visit (TeleHealth) [place] [address] Wyatt Higgins MD [facility] [place] [address] documented as of this encounter Visit Diagnoses Not on filedocumented in this encounter Care Teams Egg Smeller Relationship Specialty Start Date End Date Ruth Munoz, LARRY [address] [place] [address] PCP - General Family Medicine 02/05/19 documented as of this encounter
--- OUTSIDE RECORDS SUMMARY | 2024-05-15 11:09 | XMS_ITS | Encounter Summary ---
[facility] Organization [facility] [place] [address] Care Team Providers Care Storm Window Installer Name Role Phone AlexanderRuth Lilibeth JUAREZ Primary Care Provider + Reason for Visit * Reason Onset Date Comments Follow-up 01/21/2020 Encounter Details Date Type Department Care Team (Late st Contact Info) Description 01/21/2020 Telephone [place] [address] Cathy Dillon APRN [facility] [place] [address] Follow-up Social History Tobacco Use Types Packs/Day [...] Miscellaneous Notes * Telephone Encounter - Cathy Dillon - 01/21/2020 5:38 PM EDT Bariatric Surgery Program Martha was contacted to follow up on her earlier call. I offered her my apologies for the delay in responding for her request for a Flintstones complete multivitamin which was denied by her insurer. Her primary zoo caretaker was able to secure an authorization for the brand name vitamin. documented in this encounter Plan of Treatment Upcoming Encounters Date Type Department Care Team (Late st Contact Info) Description 02/19/2025 9:00 AM EDT TH Visit (TeleHealth) [place] [address] Wyatt Higgins MD [facility] [place] [place] [address] documented as of this encounter Visit Diagnoses Not on filedocumented in this encounter Care Teams Storm Window Installer Relationship Specialty Start Date End Date Ruth Munoz, COUNSELING DEPARTMENT CHAIR [address] [place] [address] PCP - General Family Medicine 02/05/19 documented as of this encounter
--- OUTSIDE RECORDS SUMMARY | 2024-05-15 11:09 | XMS_ITS | Encounter Summary ---
Author Organization [facility] [place] [address] Care Team Providers Care Parts And Service Manager Name Role Phone Ruth Munoz LARRY Primary Care Provider + Encounter Details Date Type Department Care Team (Late st Contact Info) Description 02/18/2019 Orders [place] [phone] Pérez Ferreira MD [facility] [place] [address] Social History Tobacco Use Types Packs/Day Years [...] AM EDT TH Visit (TeleHealth) [place] [phone] Wyatt Higgins MD [facility] [place] [address] documented as of this encounter Visit Diagnoses Not on filedocumented in this encounter Care Teams Parts And Service Manager Relationship Specialty Start Date End Date Ruth Munoz APRN [address] [place] [address] PCP - General Family Medicine 02/05/19 documented as of this encounter
--- OUTSIDE RECORDS SUMMARY | 2024-05-15 11:09 | XMS_ITS | Encounter Summary ---
[place] [address] Care Team Providers Care Automatic Silk Screen Printer Name Role Phone MunozRuth jerome Lilibeth JUAREZ Primary Care Provider + Encounter Details Date Type Department Care Team (Late st Contact Info) Description 02/18/2020 Telephone Dermatology at [address] [address] Benita Salazar LPN Social History [...] Telephone Encounter - Benita Salazar LPN - 02/18/2020 3:22 PM EDT Pt reports recently having yeast infection. Currently on maintenance; suppository twice weekly. First Humira injection scheduled for tomorrow. Can she still begin injections due to her recent diagnosis? Dr. Gilliland approves starting Humira. Patient notified. documented in this encounter Plan of Treatment Upcoming Encounters Date Type Department Care Team (Late st Contact Info) Description 02/19/2025 9:00 AM EDT TH Visit (TeleHealth) [place] [address] Wyatt Higgins MD [facility] [place] [address] documented as of this encounter Visit Diagnoses Not on filedocumented in this encounter Care Teams Automatic Silk Screen Printer Relationship Specialty Start Date End Date Ruth Munoz, PRODUCTION CONTROL CLERK [address] [place] [address] PCP - General Family Medicine 02/05/19 documented as of this encounter
--- OUTSIDE RECORDS SUMMARY | 2024-05-15 11:09 | XMS_ITS | Encounter Summary ---
[place] [address] Care Team Providers Care Director Telemetry Name Role Phone Alexander Ruthantony Mcelroy APRN Primary Care Provider + Reason for Referral * Consultation (Routine) - Denied Specialty Diagnoses / Procedures Referred By Patricio monsivais Referred To Contact Rheumatology Diagnoses Neuropathy Prince Sorensen MD [facility] [place] [address] [facility] [address] [place] [address] Referral ID Status Reason Start Date Expiration Date V isits Requested Visits Authorized [id number] Denied Consult, Test & Treat 07/25/2019 07/24/2020 1 0 Encounter Details Date Type Department Care Team (Late st Contact Info) Description 07/25/2019 1:00 PM EDT Office [place] [phone] Wyatt Higgins MD [facility] [place] [address] Prince Sorensen MD [facility] [place] [address] Neuropathy Social History Tobacco Use Types Packs/Day [...] Sign Reading Time Taken Comments Blood Pressure 105/58 07/25/2019 12:46 PM EDT Pulse 85 07/25/2019 12:46 PM EDT Temperature - - Respiratory Rate - - Oxygen Saturation - - Inhaled Oxygen Concentration - - Weight 82.9 kg (182 lb 11.2 oz) 019 12:46 PM EDT With shoes Height 160 cm (5' 3) 07/25/2019 12:46 PM EDT Reported Body Mass Index 32.36 07/25/2019 12:46 PM EDT documented in this encounter Progress Notes * Prince Sorensen - 07/25/2019 1:00 PM EDT Neurology Outpatient Clinic - 07/25/2019 Patient name: Martha Benoit Date of : 1965 PCP: Ruth Munoz APRN Clinic Attending: Dr. Higgins I have seen Martha Benoit, patient of Ruth Munoz APRN, at the request of Ruth Munoz for evaluation of polynueropathy Patient's CC: worsening numbness and foot drop on R HPI: Martha Benoit is a 53 y.o. right handed Type 2 diabetes mellitus on insulin with last A1c of 7.3%, diagnosed with severe length dependent sensorimotor axonal polyneuropathy which is thought to be dueto combination of poorly controlled diabetes and an unknown heredeitory neuropathy given similar complaints in her sister who is as well as some exposure to pesticides during her childhood. Patient presents to outpatient neuromuscular clinic for follow-up of her neuropathy. She is unaccompanied at today's visit. Briefly patient has been following in our clinic since a long time and has undergone extensive testing so far. She was noted to have sensorimotor polyneuropathy on EMG that was last performed in 2016. Testing, she has undergone includes HbA1c which is elevated at 7.2 or 7.3% usually. Normal TSH. Normal basic metabolic profile apart from elevated glucose level. Normal thyroglobulin antibodies. Normal thyroperoxidase antibodies. Normal vitamin B12 level. Normal vitamin B1 level. Normal folate level. Protein electrophoresis on serum and immunofixation electrophoresis were normal without any evidence of a monoclonal immunoglobulin. 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 Normal heavy metal screen which included mercury, arsenic, cadmium and lead. She was last seen by the previous fellow in January,. She was asked to continue taking her gabapentin. Interval history: Patient states that around age 40 she started noticing intermittent numbness and tingling in her bilateral lower feet. Then couple of years later she noted that she was not walking right and she had to be extra cautious especially walking on wobbly surfaces. Then couple of years later which was her late 40s she noticed that her numbness was more of a constant thing but it stayedmore in her feet. When she was evaluated by neurology at couple of other places and was found to have sensorimotor axonal neuropathy and she underwent extensive testing as mentioned above. Her neuropathy was thought to be mainly multifactorial secondary to diabetes mellitus, genetic component versus questionable pesticide exposure during her childhood. She was last seen by neurology at [facility] in January 2019. Patient states she thinks she has deteriorated since we last saw her. She notices that her right foot is even weaker as compared to 6 months ago.She does not wear any orthotics for her bilateral foot drop. She states she has tried some but theydo not fit her. Her numbness and tingling continues to be there. She denies any major issues but the symptoms of numbness but states her balance continues to worsen and she has to depend on other people for ambulation. She feels very dejected that she cannot participate with her grandkids cannot goout with them for the hikes like her other age-mates are doing so. She tells me that her sister in a very young age (late 30's) shortly after she was diagnosed with neuropathy. She states that she and her sister used to live with their single father in [place] where their father used to work in an orange orchard. And orchard was repeatedly sprayed with pesticide spray she and her sister would play. She feels that pesticide exposure has a lot to do with both the siblings. She has 3 other siblings who lived with her mother and they all are doing fine. When asked about her kids having any issues she states that her son who is 30-year-old isalready diagnosed with hypertension, psoriasis and that makes him worried that he also will have similar issues. Patient has intermittent numbness and tingling in her bilateral hands to but no weakness. She denies any weakness anywhere else. She denies any dysphagia, dyspnea. She has not had any falls. She is very careful with her walker. She continues to take 300 mg of gabapentin she is scared to take higherdose because of developing peripheral edema. Medications she has not tried include amitriptyline, duloxetine, nortriptyline. She states she tried pregabalin many years ago but had significant weight gain and water retention with and thus discontinued it. She also uses lidocaine patches on her feet.She developed foot ulcer about 10 months ago which is still in healing stage. She does not go to physical therapy she did try it in the past but is not interested in going back. She states physical therapy did not really help her. She denies any neck pain. She complains of some lumps in her back which hurt. Denies any back pain going down into her legs or feet. She denies any bowel or bladder issues. She denies any urinary retention or accidents. She denies any vision changes or focal weakness. Past Medical & Surgical History: Patient Active Problem List Diagnosis ??? 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 Peripheral autonomic neuropathy due to diabetes mellitus Overview Note: ??? Iron deficiency ??? Memory loss ??? Gastroesophageal reflux Overview Note: A. EGD done on 07/21/10: small hiatus [...] ??? Unspecified hypothyroidism ??? Peripheral neuropathy-severe generalized Overview Note: severe generalized peripheral neuropathy & Lt foot/toe drop 02/23/10: nerve conduction studies showed severe generalized peripheral neuropathy. In addition, there is active denervation across multiple root and peripheral nerve distribution in the left lower extremity. Dr. Julio Cesar Wright suggested lumbar puncture in [place] -if high protein, may need IVIG therapy or try two days of high dose steroid therapy ??? Preoperative Class III obesity BMI 43, S/P gastric bypass 01/04/16 Overview Note: Bariatric Surgery Program 1. Attended Introduction to the [facility] Bariatric Surgery Program seminar, a comprehensive two hour meeting that provides a program overview, education on bariatric surgeries offered at [facility], risks andbeheliofits, as well as patient expectations and follow up: 08/05/14. [facility] BSP Educational seminars viewed: 3. Grades on post-testin-100%. The BSP Educational Handbook is provided at preoperative visit #1. 2. Pre-operative programmatic evaluations required: PCP evaluation and letter of support to proceedwith surgery, [facility]SP labwork (can be done on day of visit #1) and psychological evaluation- minimum of2 visits. 3. Bariatric Surgery Program evaluations with RD and NYLON OPERATOR: 11/03/15 4. Weight history: 198 pounds on 08/25/04, 207 pounds on 03/20/09, 249 pounds on 07/01/14, 253 pounds on 02/20/15 5. Gallbladder status: 6. Insurer specific requirements: [place] medicaid- 3 months of supervised counseling 7. BSP Team meeting discussion: no Post surgery course: 1. Admitted to [facility] on 01/24/16 with nausea and vomiting, failure to progress diet.Transfer to [facility] on 01/25/16 ??? Vitamin D deficiency Overview Note: Lab 04/30: 25vitamin D = 19 -> started on vitamin D 50,000 iu weekly Lab 10/2009: 25vitamin D = 35-> increased to 2x/week for 2-3 months to keep it in mid range soon-in preparation for gastric bypass in the near future. 02/19/10: 25vitamin D = 51 ??? History of kidney stones-bilateral Overview Note: 1-2 mm Nov 2000 - [facility] Oct 2000 - stent Dec, Aug, March - distal ureteral stone extraction Jul - [facility] - [place] ??? Chronic foot pain-s/p heel spur surgeries ? ? Diabetic retinopathy & neuropathy Overview Note: +DM for 10+ years -on insulin since 2006, +severe diabetic neuropathy and mild retinopathy A1c 8.3%(02/19/10)<-8.8%(10/2009)<-8.1%(05/31)<-8.9%(04/30)<-10.4%(10/08/08) <-12.7(04/29)<-11.6%(12/28)<-10.6(06/29)<-9.7% (04/28) Normal c-peptide 3.3 -> 1.5 (02/19/10) icd 9 357.2 Medications: Current Outpatient Medications on File Prior to Visit Medication Sig Dispense Refill ??? BACLOFEN ORAL Take 5 mg by mouth 4 times daily. ??? cyanocobalamin, vitamin B-12, 500 mcg Tablet, Sublingual Place 1 tablet under the tongue daily.90 tablet 3 ??? pediatric multivitamin no.76 (FLINTSTONES COMPLETE) Tablet, Chewable Take 1 tablet by mouth 2 times daily. 180 tablet 3 ??? metFORMIN (GLUCOPHAGE XR) 500 mg Tablet Sustained Release 24 hr Take 1 tablet by mouth 3 times daily (with meals). 270 tablet 3 ??? canagliflozin (INVOKANA) 300 mg Tablet Take 300 mg by mouth daily. 90 tablet 3 ??? VITAMIN D 50,000 unit Capsule TAKE ONE CAPSULE BY MOUTH EVERY WEEK 12 capsule 3 ??? glipiZIDE (GLUCOTROL XL) 10 mg Tablet Extended Rel 24 hr TAKE ONE TABLET BY MOUTH TWICE A DAY 180 tablet 2 ??? SF 5000 PLUS 1.1 % Cream BRUSH ON TEETH ONCE DAILY DIRECTED 11 ??? omeprazole (PRILOSEC) 20 mg Capsule, Delayed Release(E.C.) Take 1 capsule by mouth daily. Take 30 minutes prior to breakfast on an empty stomach 90 capsule 3 ??? triamcinolone (KENALOG) 0.1 % Ointment APPLY TOPICALLY TO ARMS LEGS AND ABDOMEN TWO TIMES A DAYAS NEEDED 3 ??? insulin aspart protamine-insulin aspart 70/30 (NOVOLOG MIX 70-30 FLEXPEN) Insulin Pen Inject 10-15 Units subcutaneously 2 times daily (with meals). 30 mL 3 ??? oxyCODONE-acetaminophen (PERCOCET) 10-325 mg Tablet Take 1 tablet by mouth 6 times daily. ??? lidocaine (LIDODERM) 5 %(700 mg/patch) Place 1 patch onto the skin every 12 hours as needed. ??? baclofen (LIORESAL) 10 mg tablet Take 10 mg by mouth 4 times daily. ??? RESTASIS 0.05 % Dropperette Place 1 drop into both eyes 2 times daily. ??? nystatin (MYCOSTATIN) Powder 1 Application as needed. 2 ??? RECTIV Apply 1 Application topically as needed. ??? pregabalin (LYRICA) 50 mg Capsule Take 2 capsules by mouth 2 times daily. Indications: DiabeticComplication causing Injury to some Body Nerves (Patient not taking: Reported on 07/25/2019) 120 capsule 3 ??? Calcium Citrate-Vitamin D3 315-250 mg-unit Tablet Take 2 tablets by mouth daily. Take with a meal (Patient not taking: Reported on 07/25/2019) 180 tablet 3 ??? pediatric multivitamin with iron Tablet, Chewable Take 1 tablet by mouth 2 times daily. Take 1 chewable COMPLETE MULTIVITAMIN TWICE DAILY (Patient not taking: Reported on 07/25/2019) 180 tablet 3 ??? ascorbic acid, vitamin C, (VITAMIN C) 500 mg Tablet Take 1 tablet by mouth daily. Take with iron to improve absorption (Patient not taking: Reported on 07/25/2019) 30 tablet 3 ??? ciclopirox (PENLAC) 8 % Solution ??? insulin lispro (HUMALOG) Solution Inject 15 Units subcutaneously. ??? gabapentin (NEURONTIN) 300 mg Capsule Take 300 mg by mouth. No current facility-administered medications on file prior to visit. Allergy: No Known Allergies Social History: Smoking: denies EtOH:denies Illicits:denies Review of systems: Negative except as stated above Physical Exam: Vitals: Temp: -- Heart Rate: [85] Resp: -- BP: (105)/(58) SpO2: -- Heart Rate from SpO2: -- Gen: Apparent stated age, well nourished, well developed, awake, alert, NAD Neck: Supple, no meningismus, no carotid bruit, no occipital tenderness HEENT: MMM CV: S1, S2, RRR, no murmur apreciated Resp: Normal respiratory effort, CTAB Abd: +normoactive bowel sounds, soft, nontender, nondistended Skin: Psoriatic lesions seen at extensor surfaces of extremities Neuro Exam: MS: Awake, alert, oriented to [...] 5/5 L Finger abduction, flexion, and extension 5/5 R, 5/5 L Thumb abduction LE: 5/5 R, 5/5 L Hip flexion 5/5 R, 5/5 L Hip adduction 5/5 R, 5/5 L Knee flexion and extension 1/5 R, 0/5 L Foot dorsiflexion 4/5 R, 3/5 L Foot plantarflexion 1/5 R, 1/5 L Foot eversion 3/5 R, 2/5 L Foot inversion Sensory: Slightly reduced light touch and temperature in a glove distribution in her bilateral arms Significantly reduced light touch, temperature, and vibration in LE BL, from toes to proximal to her knees Proprioception impaired in BL great toes Reflexes: DTRs Trace R, Trace L Biceps Absent R, Absent L Brachioradialis Absent R, Absent L Triceps trace R, trace L Patellar Absent R, Absent L Achilles tendon Toes - Both mute Coordination: Finger to nose intact with no dysmetria Rapid alternating movements & finger tapping smooth and symmetric No tremor at rest or with motion Gait: Romberg +. Foot drop appreciated bilaterally when she walks Assessment / Plan: Martha Benoit is a 53 y.o. right handed Type 2 diabetes mellitus on insulin with last A1c of 7.3%, diagnosed with severe length dependent sensorimotor axonal polyneuropathy which is thought to be dueto combination of poorly controlled diabetes and an unknown heredeitory neuropathy given similar complaints in her sister who is as well as some exposure to pesticides during her childhood. Based on history and examination she is noted to have some deterioration since last week which was about 6 months ago. We believe that diabetes is contributing to her current neuropathy but since it is progressing so fast and her A1c's have NOT been grossly abnormal they are around the range of 7%, we believe there is another pathology confounding the picture. The way her presentation is young ageof onset, positive family history, high arched foot, difficulty in childhood with sports makes us think of hereditary sensory motor neuropathy being more likely. She did undergo genetic testing with [employer] comprehensive neuropathy panel in 2017 which was positive for SPG 11 gene variant that was regarded as of uncertain significance. It is heterozygous inheritance in our patient. This variant has been linked with Charcot Brittany tooth type IIX disease. It has also been linked with ALS but no evidence of upper motor neuron signs were seen on the patient. And this has been going on since last 13years now. We can also not rule out autoimmune etiology behind her neuropathy. Pesticide exposure seems to be unlikely since her symptoms continue to worsen at currently too despite not being exposedat this stage. -We will obtain ganglioside antibody panel -I will personally call genetic counselor of [employer] and ask them more about the uncertain significance of the gene. Since patient's son has also started to exhibit similar symptoms will there be basis to test him and see if we can pinpoint point the symptoms to particular disease. If the above testing including ganglioside and genetics does not give us a correct answer I would like to go ahead with lumbar puncture on this patient to rule out autoimmune disease process like CIDP. CSF will be tested for cell count, protein, glucose, oligo clonal bands. -Patient was updated about our plan today. -She has also been given a referral to rheumatology. -Follow-up in 1 month. Seen with Neurology staff, Dr. Higgins. Prince Sorensen MD Clinical Neurophysiology Fellow Pager: [phone] 07/25/2019 Neurology Staff Note I have reviewed the above fellows's history during the visit and I agree with the details as written. My physical examination confirms the fellow's findings. The assessment and plan were formulated in discussion with me at the time of the visit and I agree with them as documented. Wyatt Higgins MD documented in this encounter Plan of Treatment Upcoming Encounters Date Type Department Care Team (Late st Contact Info) Description 02/19/2025 9:00 AM EDT TH Visit (TeleHealth) [place] [address] Wyatt Higgins MD [facility] [place] [address] Scheduled Referrals Name Type Priority Associated Diagnoses Order Schedule Referral to Rheumatology Outpatient Referral Routine Neuropathy Ordered: 07/25/2019 documented as of this encounter Procedures Procedure Name Priority Date/Time Associated Diagnosis Comments HC VENIPUNCTURE Routine 07/25/2019 2:45 PM EDT Neuropathy documented in this encounter Results * Ganglioside Antibodies (07/25/2019 2:45 PM EDT) Ganglioside Antibodies See Scan Report [facility] Comment:Test performed by [facility], [address] [place] [id number] Blood specimen (specimen) 07/25/2019 2:45 PM EDT 07/26/2019 12:02 PM EDT Narrative Resulting Agency Comment Spec In Lab Wyatt Higgins MD IMMUNOLOGY ORDERABLE S [facility] [place] [address] documented in this encounter Visit Diagnoses Diagnosis Neuropathy Mononeuritis of unspecified site documented in this encounter Care Teams Director Telemetry Relationship Specialty Start Date End Date Ruth Munoz, GIANT TIRE REPAIRER [address] [place] [address] PCP - General Family Medicine 02/05/19 documented as of this encounter
--- OUTSIDE RECORDS SUMMARY | 2024-05-15 11:09 | XMS_ITS | Encounter Summary ---
Author Organization [facility] [place] [address] Care Team Providers Care Inspector Welded Parts Name Role Phone MunozRuth jerome Lilibeth JUAREZ Primary Care Provider + Reason for Visit * Reason Comments Medication Refill Encounter Details Date Type Department Care Team (Late st Contact Info) Description 01/27/2020 Refill [place] [phone] Judith Reinoso MD [facility] DR [place]OCR[place] [address] Social History Tobacco Use Types Packs/Day Years [...] EDT TH Visit (TeleHealth) [place] [phone] Wyatt Higgins MD [facility] [place] [address] documented as of this encounter Visit Diagnoses Not on filedocumented in this encounter Care Teams Inspector Welded Parts Relationship Specialty Start Date End Date Ruth Munoz, WOOD BOX MAKER [address] [place] [address] PCP - General Family Medicine 02/05/19 documented as of this encounter
--- OUTSIDE RECORDS SUMMARY | 2024-05-15 11:09 | XMS_ITS | Encounter Summary ---
Author Organization [facility] [place] [address] Care Team Providers Care Stump Blower Name Role Phone MunozRuth jerome Lilibeth JUAREZ Primary Care Provider + Reason for Visit * Reason Comments Medication Refill Encounter Details Date Type Department Care Team (Late st Contact Info) Description 08/06/2019 [place] [phone] Judith Reinoso MD [facility] [place] [address] Social History Tobacco Use Types Packs/Day Years [...] AM EDT TH Visit (TeleHealth) [place] [phone] Wyatt Higgins MD [facility] [place] [address] documented as of this encounter Visit Diagnoses Not on filedocumented in this encounter Care Teams Stump Blower Relationship Specialty Start Date End Date Ruth Munoz, ECONOMICS LECTURER [address] [place] [address] PCP - General Family Medicine 02/05/19 documented as of this encounter
--- OUTSIDE RECORDS SUMMARY | 2024-05-15 11:09 | XMS_ITS | Encounter Summary ---
Author Organization [facility] [place] [address] Care Team Providers Care Qa Internship Name Role Phone MunozRuth jerome Lilibeth JUAREZ Primary Care Provider + Reason for Visit * Reason Onset Date Comments Follow-up 11/01/2019 Encounter Details Date Type Department Care Team (Late st Contact Info) Description 11/01/2019 Telephone [place] [address] Cathy Dillon APRN [facility] [place] [place] [address] Follow-up Social History Tobacco Use Types Packs/Day [...] * Telephone Encounter - Cathy Dillon - 11/01/2019 6:01 PM EST Bariatric Surgery Program I called Martha to clarify her lab results letter, which showed iron deficiency without anemia. She is taking iron once a week, finds it upsetting to her stomach/ constipation. She is not interested in trying remedies for constipation at this time. She will continue multvitamins with iron twice a day and iron once a week. We will recheck her ironscreen and hemogram in ~3 months documented in this encounter Plan of Treatment Upcoming Encounters Date Type Department Care Team (Late st Contact Info) Description 02/19/2025 9:00 AM EDT TH Visit (TeleHealth) [place] [address] Wyatt Higgins MD [facility] [place] [address] documented as of this encounter Visit Diagnoses Not on filedocumented in this encounter Care Teams Qa Internship Relationship Specialty Start Date End Date Ruth Munoz, LARRY [address] [place] [address] PCP - General Family Medicine 02/05/19 documented as of this encounter
--- OUTSIDE RECORDS SUMMARY | 2024-05-15 11:09 | XMS_ITS | Encounter Summary ---
Author Organization [facility] [place] [address] Care Team Providers Care Open Hearth Laborer Name Role Phone MunozRuth jerome Lilibeth JUAREZ Primary Care Provider + Reason for Visit * Reason Onset Date Comments Other 02/13/2019 Encounter Details Date Type Department Care Team (Late st Contact Info) Description 02/13/2019 Telephone [place] [address] Cathy Dillon APRN [facility] [place] [address] Other Social History Tobacco Use Types Packs/Day [...] encounter Miscellaneous Notes * Telephone Encounter - Cahty Dillon - 02/13/2019 4:28 PM EDT Bariatric Surgery Program Martha was contacted to let her know that her prescription for flinstones complete multivitamins wasavailable. She will take iron twice a week, as tolerated. She plans to have the repeat testing in April. documented in this encounter Plan of Treatment Upcoming Encounters Date Type Department Care Team (Late st Contact Info) Description 02/19/2025 9:00 AM EDT TH Visit (TeleHealth) [place] [address] Wyatt Higgins MD [facility] [place] [address] documented as of this encounter Visit Diagnoses Not on filedocumented in this encounter Care Teams Open Hearth Laborer Relationship Specialty Start Date End Date Ruth Munoz APRN [address] [place] [address] PCP - General Family Medicine 02/05/19 documented as of this encounter
--- OUTSIDE RECORDS SUMMARY | 2024-05-15 11:09 | XMS_ITS | Encounter Summary ---
[place] [address] Care Team Providers Care Invoicing Machine Operator Name Role Phone MunozRuth jerome Lilibeth JUAREZ Primary Care Provider + Encounter Details Date Type Department Care Team (Late st Contact Info) Description 02/13/2019 Telephone [place] [phone] Lauren Fowler RN Social History Tobacco Use [...] Telephone Encounter - Lauren Villaseñor RN - 02/13/2019 10:52 AM EDT Pt calling with questions about her Metformin, stating that at her OV on 02/05/19 Dr Reinoso increased her invokana and decreased her metformin to BID because TID caused GI upset. But the metformin rx she just picked up still states TID. Reviewed OV note with patient: To increase invokana 300 mg qAM, and continue metformin 500 mg bid/tid (could not tolerate the higher dose) Advised pt that Dr Reinoso rx'd the metformin TID in the event pt is able to tolerate TID, but isaware she will only take it BID. Pt asked for info on her iron values because when she returned from her appt with LARRY Dillon she had been given injectable iron, but pt didn't think her iron values were that low. Dr Reinoso had ordered the last iron labs so reviewed with pt. Pt states she would prefer to take oral iron supplementation. Advised pt to please call and discuss that with LARRY Dillon. documented in this encounter Plan of Treatment Upcoming Encounters Date Type Department Care Team (Late st Contact Info) Description 02/19/2025 9:00 AM EDT TH Visit (TeleHealth) [place] [address] Wyatt Higgins MD [facility] [place] [address] documented as of this encounter Visit Diagnoses Not on filedocumented in this encounter Care Teams Invoicing Machine Operator Relationship Specialty Start Date End Date Ruth Munoz APRN [address] [place] [address] PCP - General Family Medicine 02/05/19 documented as of this encounter
--- OUTSIDE RECORDS SUMMARY | 2024-05-15 11:09 | XMS_ITS | Encounter Summary ---
Author Organization [facility] [place] [address] Care Team Providers Care Commercial Account Executive Name Role Phone Ruth Munoz LARRY Primary Care Provider + Encounter Details Date Type Department Care Team (Late st Contact Info) Description 02/18/2019 [place] [phone] Julio Cesar Wright MD [facility] [place] [address] Social History Tobacco Use Types Packs/Day Years [...] encounter Miscellaneous Notes * Telephone Encounter - Preeti Gonzalez RN - 02/18/2019 5:25 PM EDT Images from the original note were not included. Message Received: Today Cichowski, Pérez J, MD Lisa, Preeti A, RN Caller: Unspecified (Today, ??9:53 AM) ?? Weight gain is definitely not ideal, but she told me there were probably other things contributing to her weight gain around that time. She really liked Lyrica and felt it helped quite a bit (and waswilling to take it again...), so I'm still inclined to try that again before jumping to a differentmedication. It's a little odd she called us because she made a point to tell me she likes having her medications prescribed directly by her PCP and is planning to discuss further adjustments to her gabapentin dose with her PCP soon. But I'm happy to write her a script. I've sent it to her local pharmacy. I wrote the pharmacists the following note: Please provide the following instructions: Start by taking 50mg QHS 1 week, then increase to 50mg BID for 1 week, then increase to 50mg QAM and 100mg QHS for 1 week, then increase to 100mg BID from then onward. Which hopefully they translate to this (which the signature field did not allow): Please provide her with the following tapering instructions: Start by taking 50mg at night time for 1 week, Then increase your dose to 50mg in the morning and 50mg at night for 1 week, Then increase your dose to 50mg in the morning and 100mg at night for 1 week, Then increase your dose to 100mg in the morning and 100mg at night from then onward. Thanks! Pérez Montenegro Pt advised in above. She did not discuss this with her pcp. She forgot that she mentioned that. Pt will start low dose as instructed and if questions or concerns she will call. Pt believes that she was afraid of this med the last time it was prescribed as she was having a great deal of stress in her life. Much better now. * Telephone Encounter - Madelin Molina - 02/18/2019 9:53 AM EDT Clinical [place] Message Caller: Martha If not Pt / Relation to pt: Call back Number: [phone] Best time to reach caller: Anytime Reason for call: Medication Issue Info for Nurse Medication of Concern: Gabapentin What are the current questions/issues/concerns: Pt states the increased gabapentin hasn't been helping with her symptoms and would like to try Lyrica as discussed in her last appointment with Dr. Wright and Dr. Ferreira. Additional information or questions for the nurse: Disposition of Call Routine message sent to nurse documented in this encounter Plan of Treatment Upcoming Encounters Date Type Department Care Team (Late st Contact Info) Description 02/19/2025 9:00 AM EDT TH Visit (TeleHealth) [place] [address] Wyatt Higgins MD [facility] [place] [address] documented as of this encounter Visit Diagnoses Not on filedocumented in this encounter Care Teams Commercial Account Executive Relationship Specialty Start Date End Date Ruth Munoz, LARRY [address] [place] [address] PCP - General Family Medicine 02/05/19 documented as of this encounter
--- OUTSIDE RECORDS SUMMARY | 2024-05-15 11:09 | XMS_ITS | Encounter Summary ---
[place] [address] Care Team Providers Care Candy Dipper Hand Name Role Phone MunozRuth jerome Lilibeth JUAREZ Primary Care Provider + Encounter Details Date Type Department Care Team (Late st Contact Info) Description 02/11/2019 Telephone [place] [phone] Nany Pryor RN Social History Tobacco Use Types Packs/Day [...] Miscellaneous Notes * Telephone Encounter - Nany Pryor RN - 02/11/2019 3:26 PM EDT I received a voicemail from Paz luna to clarify the iron prescription. I sent an IB message to Cathy Dillon APRN to clarify. documented in this encounter Plan of Treatment Upcoming Encounters Date Type Department Care Team (Late st Contact Info) Description 02/19/2025 9:00 AM EDT TH Visit (TeleHealth) [place] [address] Wyatt Higgins MD [facility] [place] [address] documented as of this encounter Visit Diagnoses Not on filedocumented in this encounter Care Teams Candy Dipper Hand Relationship Specialty Start Date End Date Ruth Munoz APRN [address] [place] [address] PCP - General Family Medicine 02/05/19 documented as of this encounter
--- OUTSIDE RECORDS SUMMARY | 2024-05-15 11:09 | XMS_ITS | Encounter Summary ---
Author Organization [facility] [place] [address] Care Team Providers Care Wheel And Pinion Inspector Name Role Phone MunozRuth jerome Lilibeth JUAREZ Primary Care Provider + Reason for Visit * Reason Comments Medication Refill Encounter Details Date Type Department Care Team (Late st Contact Info) Description 08/10/2019 [place] [phone] Judith Reinoso MD [facility] [place] [address] Social History Tobacco Use Types Packs/Day Years [...] AM EDT TH Visit (TeleHealth) [place] [phone] Wyatt Higgins MD [facility] [place] [address] documented as of this encounter Visit Diagnoses Not on filedocumented in this encounter Care Teams Wheel And Pinion Inspector Relationship Specialty Start Date End Date Ruth Munoz, VETERINARY PHARMACOLOGIST [address] [place] [address] PCP - General Family Medicine 02/05/19 documented as of this encounter
--- OUTSIDE RECORDS SUMMARY | 2024-05-15 11:09 | XMS_ITS | Encounter Summary ---
Author Organization [facility] [place] [address] Care Team Providers Care Silk Conditioner Name Role Phone Ruth Munoz Lilibeth JUAREZ Primary Care Provider + Reason for Visit * Reason Onset Date Comments Other 08/15/2019 Encounter Details Date Type Department Care Team (Late st Contact Info) Description 08/15/2019 Telephone [place] [address] Prince Sorensen MD [facility] [place] [place] [address] Other Social History Tobacco Use Types Packs/Day [...] encounter Miscellaneous Notes * Telephone Encounter - Purvi Brown - 08/15/2019 12:09 PM EDT Clinical [place] Message Caller: Kusum If not Pt / Relation to pt: Labs [facility] Call back Number:[phone] Reason for call: States pt needs Lyme antibody test ordered. Message/information for the nurse: States that the order needs to be sent over [facility] as they will have to cancel the test if they don't have the order to collect what they need. Is needed before 24 hours. States a CSF was collected. Disposition of Call ?? [place] Message Reason red arrow Message: Needs order as will within 24 hours of when can collect. documented in this encounter Plan of Treatment Upcoming Encounters Date Type Department Care Team (Late st Contact Info) Description 02/19/2025 9:00 AM EDT TH Visit (TeleHealth) [place] [address] Wyatt Higgins MD [facility] [place] [address] documented as of this encounter Visit Diagnoses Diagnosis Neuropathy Mononeuritis of unspecified site Polyneuropathy Unspecified hereditary and idiopathic peripheral neuropathy Type 2 diabetes mellitus with diabetic neuropathy, unspecified whether long term acute care registered nurse insulin use documented in this encounter Care Teams Silk Conditioner Relationship Specialty Start Date End Date Ruth Munoz APRN [address] [place] [address] PCP - General Family Medicine 02/05/19 documented as of this encounter
--- OUTSIDE RECORDS SUMMARY | 2024-05-15 11:09 | XMS_ITS | Encounter Summary ---
Author Organization [facility] [place] [address] Care Team Providers Care Agricultural Extension Agent Name Role Phone AlexanderAidanantony Mcelroy APRN Primary Care Provider + Encounter Details Date Type Department Care Team (Latest Contact Info) Description 02/06/2020 11:00 AM EDT TH Visit (TeleHealth) [place] [address] Judith Reinoso MD [facility] [place] [address] Type 2 diabetes, controlled, with neuropathy; Vitamin D deficiency; History of gastric bypass Social History Tobacco Use Types Packs/Day Years [...] - - Weight 83.5 kg (184 lb) 02/06/2020 11:10 AM EDT Height - - Body Mass Index 32.59 10/07/2019 3:17 PM EST documented in this encounter Progress Notes * Judith Reinoso MD - 02/06/2020 11:00 AM EDT Endocrine Clinic Name: [facility] : 1965 Date: 02/06/2020 PCP: Ruth Munoz APRN Reason for visit: Follow-up type 2 diabetes s/p bariatric surgery 4 yrs ago (Dr. Mai on 01/04/16) with good wt loss of 60-75 bs since the surgery and BMI 29- 32 range. Patient verbally consents to this telephone visit and understands that this visit may be billed, similar to a clinic office visit. I provided care to the patient today via telephone call. The total time associated with this visit was 30 minutes. Diabetes treatment regimen: 70/30 mix pen 10u 3x/day => 2x/day Humalog sliding scale p.r.n for correction of high BG>180) Metformin 500 mg 3x/day (1,500 mg/day) GlipizideER 10 mg bid Invokana 300 mg qd (she has yeast infection on topical treatment by PCP right now but does not wantto reduce or hold invokana dose yet) FSBG: average 140 over the past 2 weeks, ranging between 80s- 150s mg/dl Most recent HA1c: 6.8% yesterday on 02/05/20 as her best which is excellent (was 7.3% on 07/11/19, 7.5% on 02/12/18, 6.8% [...] recently. She kept her weight stable at 184 lbs over the past year and used to weigh 240s- 250s lbs before gastric bypass in 2016. She still eats some candies and will do her best to cut back on carb so she canreduce insulin 3x/day to 2x/day for her 70/30 mix insulin. A1c is trending down to 6.8% which is excellent! Her insurance covered for mix 70/30 insulin well. She is now 4 year post bariatric surgery and is getting better gradually from her foot drop/peripheral neuropathy. She wants to lose wt further and is pleased that she does not feel hungry and [...] 2018 and is pending for lab results yesterday at [facility]. She has been taking [place] multivitamin to 2 tab daily with normal ironlevels as well. Denies any changes in vision, no CP, SOB, GI issues, leg swelling or foot ulcer butstill having some thin scalp hairs. She already had quite normal dilated eye exam except for mild cataract ou. ROS: Please see HPI, all others negative Patient Active Problem List Diagnosis Code ??? History of kidney stones-bilateral Z87.442 ??? Chronic foot pain-s/p heel spur surgeries M79.673, G89.29 ? ? Diabetic retinopathy & neuropathy E11.319 ??? Preoperative Class III obesity BMI 43, S/P gastric bypass 01/03/16 E66.01 ??? Peripheral neuropathy-severe generalized G62.9 ??? [...] to Visit Medication Sig Dispense Refill ??? Invokana 300 mg Tablet TAKE ONE TABLET BY MOUTH EVERY DAY 90 tablet 3 ??? vitamin D 50,000 unit Capsule TAKE ONE CAPSULE BY MOUTH EVERY WEEK 12 capsule 3 ??? omeprazole (PRILOSEC) 20 mg Capsule, Delayed Release(E.C.) TAKE ONE CAPSULE BY MOUTH EVERY DAY 30 MINUTES PRIOR TO BREAKFAST ON AN EMPTY STOMACH 90 capsule 3 ??? glipiZIDE (GLUCOTROL XL) 10 mg Tablet Extended Rel 24 hr Take 1 tablet by mouth 2 times daily. 180 tablet 3 ??? fluconazole (DIFLUCAN) 150 mg Tablet Take 150 mg by mouth as needed. 3 ??? insulin aspart protamine-insulin aspart 70/30 (NOVOLOG MIX 70-30 FLEXPEN) Insulin Pen Inject 15-20 units subcutaneously 2 times daily (Patient not taking: Reported on 08/15/2019) 45 mL 3 ??? BACLOFEN ORAL Take 5 mg by mouth 4 times daily. ??? RESTASIS 0.05 % Dropperette Place 1 drop into both eyes 2 times daily. ??? nystatin (MYCOSTATIN) Powder 1 Application as needed. 2 ??? RECTIV Apply 1 Application topically as needed. ??? cyanocobalamin, vitamin B-12, 500 mcg Tablet, Sublingual Place 1 tablet under the tongue daily.90 tablet 3 ??? pediatric multivitamin no.76 (FLINTSTONES COMPLETE) Tablet, Chewable Take 1 tablet by mouth 2 times daily. 180 tablet 3 ??? metFORMIN (GLUCOPHAGE XR) 500 mg Tablet Sustained Release 24 hr Take 1 tablet by mouth 3 times daily (with meals). 270 tablet 3 ??? ciclopirox (PENLAC) 8 % [...] file Gets together: Not on file Attends quaker service: Not on file Active member of [...] malformation in her son/kidney stone Physical exam Wt 83.5 kg (184 lb) BMI 32.59 kg/m?? Deferred PE from last visit: Appearance: Non-obese, pleasant, NAD, still having [...] Heavy Metals Unknown ... Phone note 07/08/20: At last visit 02/06/20, we tapered her [...] low BG which will cause wt gain. Assessment: 54 y.o. lady with much better [...] be easier to lose some weightdown further. Complication Risk Status: complications present +peripheral neuropathy [...] B12 to every other day for now. Plan: 1. Medication: Adjustment of [...] D 50,000 iu 1x/week and 2 of [place] MVI with iron which contains iron (she [...] insulin 4. Lab: Already checked after lab yesterday as above and will let her know the pending test results soon for 25vitamin D, etc as ordered. 5. RTC: Next visit in 12 months [...] AM EDT TH Visit (TeleHealth) [place] [address] Wyatt Higgins MD [facility] [place] [address] documented as of this encounter Visit Diagnoses Diagnosis Type 2 diabetes, controlled, with neuropathy Type II or unspecified type diabetes mellitus with neurological manifestations, not stated as uncontrolled Vitamin D deficiency Unspecified vitamin D deficiency History of gastric bypass Bariatric surgery status documented in this encounter Care Teams Agricultural Extension Agent Relationship Specialty Start Date End Date Ruth Munoz, CHICKEN HANGER [address] [place] [address] PCP - General Family Medicine 02/05/19 documented as of this encounter
--- OUTSIDE RECORDS SUMMARY | 2024-05-15 11:09 | XMS_ITS | Encounter Summary ---
Author Organization [facility] [place] [address] Care Team Providers Care Pill Coater Name Role Phone MunozRuth jerome LARRY Primary Care Provider + Reason for Visit * Reason Comments Follow-up Encounter Details Date Type Department Care Team (Late st Contact Info) Description 02/05/2019 1:00 PM EDT Office [place] [address] Cathy Dillon, SECURITY ASSURANCE SPECIALIST [facility] [place] [address] Nany Tai, CHARLES [facility] [place] [address] Iron deficiency; Disorder of iron metabolism; Intestinal malabsorption, unspecified type; S/P gastric bypass; Redundant skin; Weight gain following gastric bypass surgery Social History Tobacco Use Types Packs/Day [...] this encounter Patient Instructions * Patient Instructions* Cathy Dillon T - 02/05/2019 1:00 PM EDT [facility] passport support manager Latosha [phone] and Julia [phone] Dietitians: [phone] Surgeons/ nurse practitioners: [phone] Nurse line: [phone] Testing: Labwork: Today. Go to [facility], which is 1 flight below the General Surgery Clinic (or anyDH lab including [address] (open on Monday) Please note that you will always receive a letter with lab results and recommendations. Read the letter carefully and follow recommendations. The letter also contains information regarding your next lab draw. A copy of your labwork and office visit today is sent to your primary child day care center worker Next visit: 1 year, sooner if you would like Routine visits are done at 4.8,12, 18 and 24 months after surgery, and yearly thereafter. Please call [phone] if you do not receive an appointment by 3-4 weeks prior to the expected visit. Referrals: Let us know if you would like a referral to the [facility] to discuss management for weight loss/ strategies to avoid weight gain Vitamins: The following vitamins are recommended: ??? Multivitamins with minerals twice daily ??? Vitamin B12 500 mcg by mouth once daily ??? Iron with Vitamin C once per week ??? Vitamin D as prescribed Nutrition recommendations: - Try mixing up your meal plan and noting which foods tend to keep you full longer. You mentioned oatmeal used to keep you feeling full. - Continue to have protein at all meals and snacks - You can drink up to 15 minutes before a meal. Consider waiting 45 minutes after before starting to drink again. - Your Daily Goals: ?? 1,000-1,200 calories per day (300 calories per meal, 100 calories per snack, 1-2 snacks per day) ?? 60 grams of protein per day (20 grams per meal) ?? 48-64 oz of non-caloric and hydrating fluids per day (6-8, 8 oz cups) ?? Do not drink with meals- pushes food through more quickly, can cause upset stomach Activity: ??? Activity as allowed by your doctor. f non-prescribed drugs and treet drugs is unsafe Anti-inflammatory medications such as Ibuprofen (Advil), Aleve (Naproxen), Excedrin, should be usedsparingly after gastric bypass, since they increase the risk of ulcer and bleeding. Potential lifetime risks of gastric bypass include risk of ulcer, which is increased with alcohol and antiinflammatory medications and internal hernia (less than 5%), which may be increased with higher than predicted weight loss Call us: ??? If you have concerns. ??? If you have unexplained abdominal pain. ??? if you see blood in your stool or vomit blood ??? If you have prolonged vomiting Post Surgery Support Group: Our post surgery support group meets on the first Monday of every month from 1-2 PM at [facility]- no registration required Nutrition and Activity apps- Baritastic, My Fitness Pal, Lose It, My Plate Internet resources: www.Savedaily wwwBeneChill www.[employer] www.[employer]/blog [facility] facebook page: [email or web address] Books & Magazines: - Recipes for Life After Weight Loss Surgery by Ashli Wiseman - Shrink Yourself by Dr Stephen Dial - Eating Well - www.[email or web address] Bio.Adar [employer] - Cooking Light- [email or web address].[email or web address] [employer] documented in this encounter Progress Notes * Nany Tai, RD - 02/05/2019 1:00 PM EDT Bariatric Surgery Program Nutrition Progress Note ? Encounter Type: follow up ?? SUBJECTIVE: ? Topics Discussed/Patient Concerns: ?? Hunger returned in past couple months. States she can eat more at meals and gets hungry sooner after eating. States her kids have noticed she is snacking more. ?? Social history: Has 8 grown children, 4 biological and 4 adopted. Took on nieces and nephews when her sister , has 12 kids in total. Lives with one daughter and one son (nephew) in the house, no pets. On disability. Son (who had surgery) is supportive of her getting bariatric surgery. ?OBJECTIVE: ?? Date of Bariatric Surgery: 01/04/16 Type of Bariatric Surgery: Laparoscopic Brady-en-Y Gastric Bypass ?? Weight History: Date Weight (lbs) HT BMI Comments Summer [...] 02/05/19 184# 60% 32.6 3 years post-op Goal weight: none, rough idea is 160-170#, doesn't really care about weight loss. Wants to improve diabetes, be off insulin, improve neuropathy, and save her feet. Predicted weight loss with surgery is an estimated 50-70% of excess body weight, which would be a goal weight between 172-193#. ?? Related medical history: Diabetes type 2- on insulin ?? Vitamin/Mineral Supplements (reported by patient): Supplement Type Brand/Form Dosage/Amount Frequency Comments Multivitamin Angwin's chewable 1 Twice daily ?? Calcium ? none ?? Vitamin B12 ?? 1/2 pill??(? 1000 mcg) daily ?? Iron rx 65 dose weekly Can't do more, causes constipation W/o vit C Vitamin D2 rx 50,000 IU 1x/ week ? Food Allergies/Intolerances: lactose intolerant- milk, ice cream, cottage cheese ?? Tracking Intake: None ? 24-Hour Intake: Pt wasn't overly forthcoming w her current intake as she states her intake has not changed much. Reports snacking on beef jerky and cucumbers. Paying attention to clock more in an attempt to limit snacking. ?? Breakfast Shredded wheat w milk OR fruit AM Snack Lunch 1/2 c of something and a little something else PM Snack Dinner Same as lunch HS Snack Popcorn - small amt and/or beef jerky ?? Protein/ grams per day: 60- per pt Hydrating fluids- oz/ day: plenty 4 bottles total 1/2 CL and 1/2 water Soda: None. ETOH: None Caffeine: None Sweets: Meals per day: 3 ? Feels full/satisfied after eating: Yes. ?? Feels hungry: [x]most of the time - states she'll feel hungry an hour after eating. ?? Drinks with meals: started drinking w meals as she thought it would help decrease her hunger ?? Exercise: Has a foot ulcer. Has been off her feet for some time. ?? ASSESSMENT: ?? Summary of Weight Loss: Patient's percent excess weight loss is 60% , ~10# weight gain since her last visit 1 year ago. Pt experiencing more hunger which surprised her. Advised it's not uncommon for hunger to return to somedegree. It's also not uncommon to have a little weight regain. Provided pt with a few strategies that may help decrease her hunger. She is taking the recommended supplements with the exception of calcium due to history of calcium stones. She is unable to exercise at this time due to her foot ulcer. ?? NUTRITION INTERVENTION & MONITORING: ?? Provided support/encouragement and reinforced importance of meeting nutritional goals. - Try mixing up your meal plan and noting which foods tend to keep you full longer. You mentioned oatmeal used to keep you feeling full. - Continue to have protein at all meals and snacks - You can drink up to 15 minutes before a meal. Consider waiting 45 minutes after before starting to drink again. ?? Reviewed nutrition and vitamin and mineral supplement recommendations. ??? Multivitamins with minerals twice daily ??? Vitamin B12 500 mcg by mouth once daily ??? Iron with Vitamin C once per week ??? Vitamin D as prescribed ?? Written recommendations provided. Patient agreed with these and verbalized adequate understanding. ?? Evaluation by nurse practitioner today. ?? Handouts provided: One Year and Beyond Booklet * Cathy Dillon - 02/05/2019 1:00 PM EDT Reason for visit: follow up S/P laparoscopic Brady-en-Y gastric bypass on 01/04/16 Complications summary: Early Prolonged hospital stay. Admitted to [facility] on 01/24/16 with nausea and vomiting, failure to progress diet. Transfer to [facility] on 01/25/16 Late none Visits summary: Compliance with scheduled BSP follow-up: less than recommended Bariatric surgery graduates support group attendance: none Pre-op 11/03/15 Wt (lbs) 247 BMI 43.7 WT visit #2 249 HT:63 Introductory meeting date: 07/26/14 Post-op Visit date Wt (lbs) BMI %EBW lost Supplement compliance Labwork 03/23/16 216 38.2 26.1 Multi BID, D 50K 2x wk. No ca or B12 - 07/05/16 189 33.4 55 2 multi a day, no iron-intolerant. No calcium. B12 inj D 50K 1-2x wk Hg 14 Hct 43.5 ferritin 54 iron 57 sat 19% B12 416 Nl B1 fol CMP x ALP 105 D 32 PTH 56 prealbumin 23 A1c 7.4 C peptide 4.2 04/06/17 177 31.4 66 Multi w. Iron QD No calcium or B12 D 50 K 2x week 02/06: Hg 13.1 Hct 40.6 . Iron 62 isat 19% B12 448 . Nl cmp nl x ALP 105 A1c 7.6 02/12/18 175 31 68 Multi w. Iron QD No calcium or B12 D 50 K 2x week 02/12: Hg 13 Hct 41.3 ferritin 25 iron 79 sat 25% B12 543 Nl B1 folate CMP D 58 02/05/19 184 32.4 60 Multi with iron BID No calcium (stone hx, pt refuses) B12 500 mcg QD D50 K 1x week 02/05: Hg 14 Hct 41 ferritin 46 iron30 sat 10%. B12 1870 Nl CMP x ALP 108 A1c 7.4 TSH 1.36 Screening/other: Date Evaluation Results 2019 Primary care Q3 months- new PCP Ruth Munoz 11/04/15 EGD Normal esophagus. Erosive gastropathy. Findings unchanged from previous endoscopies. I don't think these non specific erosions should preclude bariatric surgery. Normal examined duodenum.Path: Endoscopic biopsy - Gastric antral gland mucosa with nonspecific reactive gastropathy and??focal intestinal metaplasia. Neg H. pylori 09/23/14 Colonoscopy 4 polyps ascending and descending colon, rectum- all tubular adenomas 03/24/15 Pap negative 2016? Mammogram Martha refuses further mammograms - DEXA Problem List ??? Preoperative Class IV obesity BMI 43.7, S/P gastric bypass ??? Type 2 diabetes diagnosed in 1993, chronic poor control preoperatively untreated until 2006: improved post surgery, A1c is 7.4 today. Some am glucose levels are up to 180, Current treatment: Novolog 70-30- 15 units twice a day, sometimes 5 at lunch, glipizide ER 10 mg BID, metformin 500 mg BID and Invokana 100 mg QD. Off U 500 insulin and extenatide post surgery - preoperative treatment: exenatide, glipizide, U 500 insulin BID, Invokana, metformin ??? GERD and hiatal hernia: Stable on omeprazole - developed intermittent mild heartburn in 2018, restarted omeprazole ??? Hyperlipidemia: status unknown, no current treatment - preop treatment with pravastatin ??? History of lower extremity edema, treated with lasix on 40 mg ~1 a week prior to surgery: resolved post surgery ??? Musculoskeletal issues: A. Chronic foot pain-s/p heel spur surgeries ??? Opiate dependence for chronic pain due to neuropathy, S/P Pain Clinic evaluation: continued requirement post-surgery ??? Diabetic retinopathy ??? Peripheral neuropathy-severe generalized: no improvement with weight loss ??? Acquired hypothyroidism: TSH normal today ??? Vitamin D deficiency with PTH elevation (29/73 with normal calcium on 11/03/15) preoperatively: remains resolved, current treatment with vitamin D 50,000 units weekly (managed by Dr. Reinoso) ??? Low B12 level preoperatively: remains resolved, current B12 supplementation with 500 mcg daily Iron deficiency: persists, was taking a multivitamin without iron for 3 months, is taking iron justonce a week due to constipation, remains iron deficient due to constipation, without anemia ??? Memory impairment, S/P evaluation by neurology 2014: stable A. MRI brain done on 07/01/14: The ventricles and sulci are proportional size.?? No focal areas of atrophy ?? identified ; specifically the medial temporal lobes appear normal. .?? There are ??several small foci of signal alteration within the periventricular white ??matter. These likely represent very mild small vessel ischemic change.?? No ??diffusion weighted abnormalities. Midline structures are unremarkable.? Impaired functional status: improved post surgery, continues to require walker due to neuropathy ??? History of HPV, S/P LEEP and colposcopy, last March 2014 ??? History of kidney stones-bilateral. remote stopped after using pepper per her report - History of multiple cystoscopies and stent placements, initially in 1987 ??? Seborrheic keratosis ??? History of tubular adenomas 2013 ??? History of chest pain A. Stress ECHO done on 08/15/07: no ischemic changes Past Surgical History: Procedure Laterality Date ??? [...] 17.11) performed by James Rosenthal MD at [facility] MAIN OR ??? PRO LAP GASTRIC BYPASS/BRADY-EN-Y N/A 01/04/2016 @LAPAROSCOPIC GASTROPLASTY, performed by Jose Mai MD at [facility] MAIN OR ??? PRO UPPER GI ENDOSCOPY, BIOPSY 11/16/2011 EGD WITH BIOPSY performed by ALISA RICHARDS at [facility] ENDOSCOPY ??? PRO UPPER GI ENDOSCOPY, DIAGNOSTIC N/A 11/04/2015 EGD, UPPER GI ENDOSCOPY performed by Kisha Doss MD at [facility] ENDOSCOPY ??? PRO UPPER GI ENDOSCOPY, DIAGNOSTIC N/A 01/04/2016 ENDOSCOPY, UPPER GI, DIAGNOSTIC, WITH OR WITHOUT SPECIMENS performed by Jose Mai MD at [facility] MAIN OR ??? TUBAL LIGATION ??? UPPER GI ENDOSCOPY, EXAM 11/16/2011 UPPER GI ENDOSCOPY performed by ALISA RICHARDS at [facility] ENDOSCOPY Allergies Allergen Reactions ??? Codeine Phosphate Nausea And Vomiting Medications 02/08/19 9848 Medication Sig Taking? metFORMIN (GLUCOPHAGE XR) 500 mg Tablet Sustained Release 24 hr Take 1 tablet by mouth 3 times daily (with meals). Yes canagliflozin (INVOKANA) 300 mg Tablet Take 300 mg by mouth daily. Yes glipiZIDE (GLUCOTROL XL) 10 mg Tablet Extended Rel 24 hr TAKE ONE TABLET BY MOUTH TWICE A DAY Yes ciclopirox (PENLAC) 8 % Solution Yes insulin lispro (HUMALOG) Solution Inject 15 Units subcutaneously. Yes omeprazole (PRILOSEC) 20 mg Capsule, Delayed Release(E.C.) Take 1 capsule by mouth daily. Take 30 minutes prior to breakfast on an empty stomach Yes pediatric multivitamin with iron Tablet, Chewable Take 1 tablet by mouth 2 times daily. Take 1 chewable COMPLETE MULTIVITAMIN TWICE DAILY Yes insulin aspart protamine-insulin aspart 70/30 (NOVOLOG MIX 70-30 FLEXPEN) Insulin Pen Inject 10-15 Units subcutaneously 2 times daily (with meals). Yes cyanocobalamin, vitamin B-12, 500 mcg Tablet, Sublingual Place 500 mcg under the tongue daily. Yes ferrous sulfate 325 mg (65 mg iron) Tablet Take 1 tablet by mouth daily. After a meal with multivitamin Yes oxyCODONE-acetaminophen (PERCOCET) 10-325 mg Tablet Take 1 tablet by mouth 6 times daily. Yes gabapentin (NEURONTIN) 300 mg Capsule Take 300 mg by mouth. Yes lidocaine (LIDODERM) 5 %(700 mg/patch) Place 1 patch onto the skin every 12 hours as needed. Yes baclofen (LIORESAL) 10 mg tablet Take 10 mg by mouth 4 times daily. Yes VITAMIN D 50,000 unit Capsule TAKE ONE CAPSULE BY MOUTH EVERY WEEK SF 5000 PLUS 1.1 % Cream BRUSH ON TEETH ONCE DAILY DIRECTED triamcinolone (KENALOG) 0.1 % Ointment APPLY TOPICALLY TO ARMS LEGS AND ABDOMEN TWO TIMES A DAY NEEDED Changes to health/ evaluations/ social history since last visit: as per updated problem list and e-DH. She is being treated for a foot ulcer. Subjective. Patient concerns at today's visit: Martha returns for routine follow up at 3 years ago. She has noted return of hunger and increased meal tolerance in the past 2 months. She is drinking with meals to feel courtney, which she finds helpful, although not recommended post bariatric surgery. She eats low protein foods. She tends to snack more often. She doesn't believe that she is eating any more than previously. She is full for 1 hour after eating. She eats a low- to no protein breakfast. She has hada foot ulcer, and has been inactive for the past 5 months. She is bothered by redundant mons and groin rashes, not sure if she wants another plastic surgery procedure. Her main focus today is getting her daughter scheduled for a GI evaluation for rectal bleeding. : Bowel regimen: 2-3 days, constipation with iron NSAID use: None Mons redundant does npt pt surgery Dietary and physical activity history: As per RD nonte Review of Systems (negative if left blank): Constitutional: [x] Fatigue recently [] pica [] restless leg Neurologic: [] paresthesias [] memory loss CV: [] treatment for hypertension or taking antihypertensive medication [] treatment for hyperlipidemia Pulmonary: [] sleep apnea symptoms [] treatment for DAMIAN GI: [] GERD [] dysphagia [] dumping [] abdominal pain [] hernia [] nausea/vomiting [] blood in stool [] chronic diarrhea/ constipation BLUE LINE HANGER: [] LMP: [] control [] menorrhagia [x] post-menopause Skin: [x] redundant skin mons with skinfold rashes Heme/Lymph: [] excessive bruising or bleeding [] blood donor in past year Psychiatric [] mental health concerns Other: Employment/social: disabled/ single Health-related habits: Nicotine: none Alcohol: none Physical activity: limited, as per RD Objective: General: 53 y.o. year-old female looks well. Heart: Normal S1S2. RRR Lungs: CTA bilaterally without wheezing Abdomen: soft, non-tender. Abdominal panniculectomy scar well-healed, without evidence of hernia. Prominent mons Extremities: no lower extremity edema Vital signs: Vitals 02/05/2019 BP 113/59 Pulse 93 Height to cm. 160 cm Height in inches 5' 3 Weight (Frisian) 184 lbs Weight (Metric) 83.5 kg BMI (Calculated) 32.59 BSA (Calculated - sq m) 1.93 Today's lab data: Recent Results (from the past 72 hour(s)) Iron and TIBC Result Value Ref [...] 3.7 ratio Lipid Interpretation See Note Vitamin B12 Result Value Ref Range Vitamin B-12 1,870 (H) 232 - 1,245 pg/mL U Albumin/Cre Ratio Result Value Ref Range Alb/Cr Ratio, Random 7 0 - 29 mcg/mg Cr U Albumin Conc, Random 3.6 mg/L U Creatinine 49 mg/dL 25-OH Vit D Total Date Value Ref Range Status 02/05/2019 44 30 - 100 ng/mL Final Assessment: 3 years S/P gastric bypass, with loss of 60% of excess body weight. Weight gain since last visit. Iron deficiency without anemia. Mons ptosis Plan: ?? Martha healthy lifestyle efforts were acknowledged. She was advised that her overall weight loss remains good. Dietary/ exercise recommendations: as per Walt AMIN. Martha is not interested in changing her diet to include higher protein foods to increase satiety. Consider referral to [facility] ?? Recommend discussing a baseline bone density scan wit her primary care physician, since she is 3years post a partially malabsorptive procedure ?? E- medical record since last BSP visit reviewed ?? Body contouring surgery discussed including guidelines, will make referral after weight has stabilized. She will contact me when she is interested in a referral ?? Next BSP visit: 1 year to coordinate with endocrinology visit. ?? Next labwork: 3 months iron screen ?? Additional vitamin and mineral supplement recommendations (*in addition to usual post surgery supplements, as noted below): continue multivitamins with iron twice daily, vitamin B12 500 mcg daily,vitamin D as per endocrinology. Decrease daily dose of iron to 27 mg due to constipation concerns,,take with vitamin C, goal daily. Consider daily miralax to prevent constipation. Consider taking calcium citrate 600 mg with vitamin D once a day with meals, due to gmat tutor concern for osteoporosis ?? Advised to call if develops unexplained abdominal pain, concerns or questions. Risks specific tobariatric procedure discussed ?? Martha was advised of lab results today and via mail. She was provided with a Bariatric Program Summary report which included the above recommendations, as well as information on vitamin and mineral supplementation, fluids, exercise and support group meetings. She has had an opportunity to have all her questions answered and is in agreement with the plan of care. RECOMMENDED BARIATRIC SURGERY PROGRAM POSTOPERATIVE FOLLOW-UP: Follow up: done at 4, 8,12 and 18 and 24 months, and yearly thereafter. High risk patients are evaluated on a more frequent basis. *Supplement recommendations: Multivitamin with minerals twice a day, B12 500 mcg once a day, calcium citrate 600 mg/400 units vitamin D twice a day, iron (ferrous fumarate, polysaccharide iron taken with vitamin C 250 mg once a day) for menstruating females or those with BOO. Labwork: Hemogram, ferritin, iron (transferrin) saturation, iron, folate, Vitamins B1, B12, D (25 hydroxy only), Intact PTH and comprehensive metabolic profile at 4, 12 and 24 months, and yearly. Prealbumin is done at 4 and 12 months and PRN. If labwork is done by the primary child day care center worker: pleasesend a copy to the Bariatric Surgery Program, General Surgery Clinic, [facility], Questions regarding [facility] Bariatric Surgery Program patients: please call the Bariatric Surgery Program at [phone] documented in this encounter Plan of Treatment Upcoming Encounters Date Type Department Care Team (Late st Contact Info) Description 02/19/2025 9:00 AM EDT TH Visit (TeleHealth) [place] [id number] Wyatt Higgins MD [facility] [place] [address] documented as of this encounter Results * (ABNORMAL) Hemogram (07/11/2019 5:46 PM EDT) WBC 11.9(H) 4.0 - 9.5 x10(3)/[facility] LABORATORY RBC 5.08 4.00 - 5.21 x10(6)/[facility] LABORATORY Hemoglobin 14.0 11.7 - 15.5 gm/dL [facility] Hematocrit 43.8 35.7 - 45.8 % [facility] MCV 86.2 82.6 - 94.4 fL [facility] MCH 27.6 27.1 - 32.0 pg [facility] MCHC 32.0 31.7 - 35.0 gm/dL [facility] Platelets 286 145 - 357 x10(3)/[facility] LABORATORY RDWSD 41.9 37.0 - 46.0 [facility] LABORATORY RDWCV 13.2 11.5 - 14.1 % [facility] MPV 10.4 7.6 - 12.9 fL [facility] nRBC % Auto 0.0 % [facility] nRBC Abs Auto 0.000 0.000 - 0.000 x10(3)/[facility] LABORATORY Blood specimen (specimen) 07/11/2019 5:46 PM EDT 07/11/2019 5:55 PM EDT Narrative Resulting Agency Comment Spec In Lab Cathy Dillon APRN HEMATOLOGY ORDERA BLES Performing Organization Address City/[facility]/ZIP Co de Phone Number [facility] [place] [address] * Ferritin (07/11/2019 5:46 PM EDT) [facility] Ferritin 34 30 - 400 ng/mL [facility] Comment: Pediatric reference ranges not verified at [facility], interpret with caution. Reference ranges for females greater than 50 years of age approach values for men, i.e., 30-400 ng/mL. Blood specimen (specimen) 07/11/2019 5:46 PM EDT 07/11/2019 5:55 PM EDT Narrative Resulting Agency Comment Spec In Lab Cathy Dillon APRN CHEMISTRY ORDERAB LES Performing Organization Address City/[facility]/ZIP Co de Phone Number [facility] [place] [address] * (ABNORMAL) Iron and TIBC (07/11/2019 5:46 PM EDT) [facility] Iron 38 30 - 150 mcg/dL [facility] TIBC 323 250 - 450 mcg/dL [facility] Iron Saturation 12(L) 20 - 50 % [facility] Blood specimen (specimen) 07/11/2019 5:46 PM EDT 07/11/2019 5:55 PM EDT Narrative Resulting Agency Comment Spec In Lab Cathy Dillon SECURITY ASSURANCE SPECIALIST CHEMISTRY ORDERAB LES Performing Organization Address City/State/[facility] Co de Phone Number [facility] [place] [address] documented in this encounter Visit Diagnoses Diagnosis Iron deficiency Iron deficiency anemia, unspecified Disorder of iron metabolism Other disorders of iron metabolism Intestinal malabsorption, unspecified type S/P gastric bypass Bariatric surgery status Redundant skin Other specified hypertrophic and atrophic condition of skin Weight gain following gastric bypass surgery documented in this encounter Care Teams Pill Coater Relationship Specialty Start Date End Date Ruth Munoz APRN [address] [place] [address] PCP - General Family Medicine 02/05/19 documented as of this encounter
--- OUTSIDE RECORDS SUMMARY | 2024-05-15 11:09 | XMS_ITS | Encounter Summary ---
Author Organization [facility] [place] [address] Care Team Providers Care Medical Assistant Cardiology Name Role Phone MunozRuth jerome Lilibeth JUAREZ Primary Care Provider + Encounter Details Date Type Department Care Team (Late st Contact Info) Description 02/11/2020 10:15 AM EDT TH Visit (TeleHealth) Dermatology at [address] [id number] Galdino Gilliland MD [address] [place] [address] [place] [address] Psoriasis Social History Tobacco Use Types Packs/Day [...] Progress Notes * Galdino Gilliland MD - 02/11/2020 10:15 AM EDT Problem: 1. Psoriasis 2. History of significant psoriasis in her son and granddaughter 3. Status post 2 months of methotrexate without significant improvement 4. telehealth telephone visit Martha follows today utilizing the telehealth telephone platform. This is her first follow-up with me since we discussed starting Humira for her psoriasis. She states that she did not start it because of a slow healing foot ulceration. The ulceration has healed in the meantime and this was documented by her [facility] orthopedic surgeon. She would Laut now like to start the Humira stating that been years since my skin has been clear. She has previously been on methotrexate orally without success..She has tried numerous topicals. She singh in the sun and phototherapy is not a good option for her. Assessment plan: Psoriasis, ready to begin Humira 1. We will obtain prior authorization for Humira 2. Begin Humira utilizing the starter pack inject 2 of the 40 mg citrate free pens subcutaneously on day 0, inject 1 on day 8, and then 1 every 2 weeks thereafter. Dispense 1 starter pack 3. After the starter pack inject Humira 40 mg citrate free pen 1 subcutaneously every 2 weeks dispense #2 with 2 refills 4. Return to clinic in 3 months for repeat check Cc: Ruth Munoz APRN documented in this encounter Plan of Treatment Upcoming Encounters Date Type Department Care Team (Late st Contact Info) Description 02/19/2025 9:00 AM EDT TH Visit (TeleHealth) [place] [address] Wyatt Higgins MD [facility] [place] [address] documented as of this encounter Visit Diagnoses Diagnosis Psoriasis Other psoriasis documented in this encounter Care Teams Medical Assistant Cardiology Relationship Specialty Start Date End Date Ruth Munoz APRN [address] [place] [address] PCP - General Family Medicine 02/05/19 documented as of this encounter
--- OUTSIDE RECORDS SUMMARY | 2024-05-15 11:09 | XMS_ITS | Encounter Summary ---
[place] [address] Care Team Providers Care Principal Clerk Typist Name Role Phone MunozAidan jeromeantony Mcelroy APRN Primary Care Provider + Encounter Details Date Type Department Care Team (Latest Contact Info) Description 07/11/2019 5:25 PM EDT Laboratory Appointment Lab [address] [place] [address] Type 2 diabetes mellitus with diabetic neuropathy, unspecified whether client account specialist insulin use; Iron deficiency; Disorder of iron metabolism; Type 2 diabetes, controlled, with neuropathy Social [...] AM EDT TH Visit (TeleHealth) [place] [address] Wyatt Higgins MD [facility] [place] [address] documented as of this encounter Procedures Procedure Name Priority Date/Time Associated Diagnosis Comments HC HEMOGRAM Routine 07/11/2019 5:46 PM EDT Iron deficiency Disorder of iron metabolism HC IRON BINDING CAPACITY Routine 07/11/2019 5:46 PM EDT Iron deficiency Disorder of iron metabolism HC VENIPUNCTURE Routine 07/11/2019 5:46 PM EDT Type 2 diabetes mellitus with diabetic neuropathy, unspecified whether client account specialist insulin use HC HEMOGLOBIN A1C Routine 07/11/2019 5:4 6 PM EDT Type 2 diabetes, controlled, with neuropathy HC FERRITIN, SERUM Routine 07/11/2019 5: 46 PM EDT Iron deficiency Disorder of iron metabolism documented in this encounter Results * (ABNORMAL) Hemoglobin A1c (07/11/2019 5:46 PM EDT) Hemoglobin A1C 7.3(H) 4.3 - 5.6 % [facility] Comment: Reference Range: 4.3 [...] 1, S67-74 Est Avg Gluc 162 mg/dL [facility] Comment: eAG equivalents for [...] into estimated average glucose values. ??Diabetes Care 2008:31(8):1884-2731. Blood specimen (specimen) 07/11/2019 5:46 PM EDT 07/11/2019 5:55 PM EDT Narrative Resulting Agency Comment Spec In Lab Judith Reinoso MD CHEMISTRY ORDERAB LES Performing Organization Address [facility] Co de Phone Number [facility] [place] [address] * (ABNORMAL) Iron and TIBC (07/11/2019 5:46 PM EDT) Iron 38 30 - 150 mcg/dL [facility] TIBC 323 250 - 450 mcg/dL [facility] Iron Saturation 12(L) 20 - 50 % [facility] Blood specimen (specimen) 07/11/2019 5:46 PM EDT 07/11/2019 5:55 PM EDT Narrative Resulting Agency Comment Spec In Lab Cathy Dillon APRN CHEMISTRY ORDERAB LES Performing Organization Address City/[facility] Co de Phone Number [facility] [place] [address] * Ferritin (07/11/2019 5:46 PM EDT) [facility] Ferritin 34 30 - 400 ng/mL [facility] Comment: Pediatric reference ranges not verified at [facility], interpret with caution. Reference ranges for females greater than 50 years of age approach values for men, i.e., 30-400 ng/mL. Blood specimen (specimen) 07/11/2019 5:46 PM EDT 07/11/2019 5:55 PM EDT Narrative Resulting Agency Comment Spec In Lab Cathy Dillon APRN CHEMISTRY ORDERAB LES [facility] [place] [address] * (ABNORMAL) Hemogram (07/11/2019 5:46 PM EDT) [facility] WBC 11.9(H) 4.0 - 9.5 x10(3)/[facility] RBC 5.08 4.00 - 5.21 x10(6)/[facility] Hemoglobin 14.0 11.7 - 15.5 gm/dL [facility] Hematocrit 43.8 35.7 - 45.8 % [facility] MCV 86.2 82.6 - 94.4 [facility] MCH 27.6 27.1 - 32.0 pg [facility] MCHC 32.0 31.7 - 35.0 gm/dL [facility] Platelets 286 145 - 357 x10(3)/[facility] RDWSD 41.9 37.0 - 46.0 [facility] RDWCV 13.2 11.5 - 14.1 % [facility] MPV 10.4 7.6 - 12.9 [facility] nRBC % Auto 0.0 % [facility] nRBC Abs Auto 0.000 0.000 - 0.000 x10(3)/[facility] Blood specimen (specimen) 07/11/2019 5:46 PM EDT 07/11/2019 5:55 PM EDT Narrative Resulting Agency Comment Spec In Lab Cathy Dillon APRN HEMATOLOGY SKYLAR SÁNCHEZ Performing Organization Address [facility]/State/ZIP Co de Phone Number [facility] [place] [address] * Heavy metals screen, blood (07/11/2019 5:46 PM EDT) Heavy Metals Screen Test ? Result ?Flag ??Unit ?RefValue ------- Heavy Metals Scrn with Demographics ??Arsenic, B ? <1 ?ng/mL ?? 0-12 ? ---ADDITIONAL INFORMATION------- ?This test was developed and its performance characteristics ?determined by [facility] in a manner consistent with CLIA ?requirements. This test has not been cleared or approved by ?the U.S. Food and Drug Administration. ??Lead, B ?1.2 ? mcg/dL ??0.0-4.9 ? ---ADDITIONAL INFORMATION------- ?Testing performed by Inductively Coupled Plasma-Mass ?Spectrometry (ICP-MS). ?This test was developed and its performance characteristics ?determined by [facility] in a manner consistent with CLIA ?requirements. This test has not been cleared or approved by ?the U.S. Food and Drug Administration. ??Cadmium, B ? 0.2 ? ng/mL ?? 0.0-4.9 ? ---ADDITIONAL INFORMATION------- ?This test was developed and its performance characteristics ?determined by [facility] in a manner consistent with CLIA ?requirements. This test has not been cleared or approved by ?the U.S. Food and Drug Administration. ??Mercury, B ? <1 ?ng/mL ?? 0-9 ? ---ADDITIONAL INFORMATION------- ?This test was developed and its performance characteristics ?determined by [facility] in a manner consistent with CLIA ?requirements. This test has not been cleared or approved by ?the U.S. Food and Drug Administration. ??Venous/Capillary ? Venous ??Patient Street Address ? [address] ??Patient City ? [place] ??Patient State ?[place] ??Patient Zip Code ? [address] ??Patient County ? [place] ??Patient Home Phone ? [phone] ??Patient Race ? white ??Patient Ethnicity ?non ??Patient Occupation ? 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 na ??Health Care Provider Name ?Cichowski, Pérez ??Health Care Provider Street Address ?[address] ??Health Care Provider City ?[place] ??Health Care Provider [place] ? [place] ??Health Care Provider Zip Code ?[address] ??Health Care Provider Phone ? [phone] ??Submitting Laboratory Phone ?[phone] ?Test Performed by: ?[facility] ?[address] [place] [address] ?Physical Testing Supervisor: Jose Sands M.D. Ph.D.; CLIA# [id number] [facility] Blood specimen (specimen) 07/11/2019 5:46 PM EDT 07/12/2019 1:00 PM EDT Narrative Resulting Agency Comment Spec In Lab Julio Cesar Wright MD CHEMISTRY ORDERABLES Performing Organization Address City/State/[facility] Co de Phone Number [facility] [place] [address] documented in this encounter Visit Diagnoses Diagnosis Type 2 diabetes mellitus with diabetic neuropathy, unspecified whether jail insulin use Iron deficiency Iron deficiency anemia, unspecified Disorder of iron metabolism Other disorders of iron metabolism Type 2 diabetes, controlled, with neuropathy Type II or unspecified type diabetes mellitus with neurological manifestations, not stated as uncontrolled documented in this encounter Care Teams Principal Clerk Typist Relationship Specialty Start Date End Date Ruth Munoz APRN [address] [place] [address] PCP - General Family Medicine 02/05/19 documented as of this encounter
--- OUTSIDE RECORDS SUMMARY | 2024-05-15 11:09 | XMS_ITS | Encounter Summary ---
[place] [address] Care Team Providers Care Mosquito Sprayer Name Role Phone Ruth Munoz LARRY Primary Care Provider + Encounter Details Date Type Department Care Team (Late st Contact Info) Description 12/13/2019 Telephone [place] [id number] Val Yousif, RN Social History Tobacco Use Types Packs/Day [...] encounter Miscellaneous Notes * Telephone Encounter - Val Yousif, RN - 12/13/2019 3:09 PM EST Nursing Triage - Phone Note DATE OF CALL: 12/13/2019 TIME OF CALL: 3:09 PM PATIENT DATE OF : 1965 CALLER: RN to the patient Learning Needs Assessment Reviewed: Yes SUBJECTIVE - Your insurance will not cover your multivitamin. 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 NURSING OBJECTIVE/ASSESSMENT: Pt is aware that her insurance won't pay for this. I asked her about taking another kind and she isnot willing to take the cheap no name brand as she doesn't like the taste. INTERVENTION/PLAN/ FOLLOW UP: She will call with any questions or concerns. If your symptoms do not improve, or they worsen, report to your local emergency department. CALLER AGREES: Yes PCP: Ruth Munoz APRN documented in this encounter Plan of Treatment Upcoming Encounters Date Type Department Care Team (Late st Contact Info) Description 02/19/2025 9:00 AM EDT TH Visit (TeleHealth) [place] [address] Wyatt Higgins MD [facility] [place] [address] documented as of this encounter Visit Diagnoses Not on filedocumented in this encounter Care Teams Mosquito Sprayer Relationship Specialty Start Date End Date Ruth Munoz APRN [address] [place] [address] PCP - General Family Medicine 02/05/19 documented as of this encounter
--- OUTSIDE RECORDS SUMMARY | 2024-05-15 11:09 | XMS_ITS | Encounter Summary ---
[place] [address] Care Team Providers Care Backer Up Name Role Phone MunozRuth jerome Lilibeth JUAREZ Primary Care Provider + Encounter Details Date Type Department Care Team (Late st Contact Info) Description 02/05/2020 Telephone [place] [address] Valerie Hinkle, [facility] Social History Tobacco Use Types Packs/Day Years [...] encounter Miscellaneous Notes * Telephone Encounter - Valerie Hinkle, [facility] - 02/05/2020 9:35 AM EDT GAP Maintenance Technician Pre-Telemedicine Phone Note [] Patient not reached [x] Patient reached and the following information was reviewed/obtained per protocol: [x] Confirmed patient name and date of [] Confirmed telemedicine michelle (Vidyo and Virtual Visit) is downloaded and functioning [x] Confirmed location of patient - TeleVisit is taking place in [x] [place] [] [place] [] If not on myD, working on signing up for myDH [] Confirmed has completed any pre-visit questionnaires [] If has not received required pre-visit questionnaires, send via myD [] Reviewed patient medications [] Documented self-reported vitals: [] Weight:184lbs [] Height 5 feet 3 [] pulse recorded: [] Other information or concerns documented in this encounter Plan of Treatment Upcoming Encounters Date Type Department Care Team (Late st Contact Info) Description 02/19/2025 9:00 AM EDT TH Visit (TeleHealth) [place] [address] Wyatt Higgins MD [facility] [place] [address] documented as of this encounter Visit Diagnoses Not on filedocumented in this encounter Care Teams Backer Up Relationship Specialty Start Date End Date Ruth Munoz APRN [address] [place] [address] PCP - General Family Medicine 02/05/19 documented as of this encounter
--- OUTSIDE RECORDS SUMMARY | 2024-05-15 11:09 | XMS_ITS | Encounter Summary ---
[place] [address] Care Team Providers Care Core Drill Operator Name Role Phone Ruth Munoz APRN Primary Care Provider + Reason for Referral * Surgical (Routine) - Closed Specialty Diagnoses / Procedures Referred By Patricio monsivais Referred To Contact Neurology Diagnoses Neuropathy Procedures Lumbar Puncture Prince Sorensen MD [facility] [address] [facility] Neu[facility] [address] [place] [address] Referral ID Status Reason Start Date Expiration Date V isits Requested Visits Authorized [id number] Closed Consult, Test & Treat 08/06/2019 08/05/2020 1 1 Reason for Visit * Reason Onset Date Comments Other 08/06/2019 Encounter Details Date Type Department Care Team (Late st Contact Info) Description 08/06/2019 Telephone [place] [address] Prince Sorensen MD [facility] [place] [address] Other Social History Tobacco Use Types Packs/Day [...] * Telephone Encounter - Prince Sorensen - 08/06/2019 12:04 PM EDT Patient updated with test results. Has elevated ganglioside antibody. Will need to perform LP. Nurse will call to schedule. * Telephone Encounter - Lissette Aguilar - 08/06/2019 8:57 AM EDT Clinical Tower Foreman Message Caller: Patient If not Pt / Relation to pt: Call back number: B Reason for call: Lab/Test Results Results being requested: Labs Where were tab/test done: [facility] When were lab/test done: 07/25 Additional information or questions for the nurse: Disposition of Call: routine message to nurse documented in this encounter Plan of Treatment Upcoming Encounters Date Type Department Care Team (Late st Contact Info) Description 02/19/2025 9:00 AM EDT TH Visit (TeleHealth) [place] [address] Wyatt Higgins MD [facility] [place] [address] documented as of this encounter Results * Oligoclonal Banding Blood (08/15/2019 11:12 AM EDT) Olig Band Bld Hold Sample in lab. [facility] Blood specimen (specimen) 08/15/2019 11:12 AM EDT 08/15/2019 11:22 AM EDT Narrative Resulting Agency Comment Spec In Lab Wyatt Higgins MD CHEMISTRY ORDERABLES Performing Organization Address [facility] de Phone Number [facility] [place] [address] * IgG Index Blood (08/15/2019 11:12 AM EDT) IgG Indx Bld Hold Sample in lab. [facility] Blood specimen (specimen) 08/15/2019 11:12 AM EDT 08/15/2019 11:22 AM EDT Narrative Resulting Agency Comment Spec In Lab Wyatt Higgins MD CHEMISTRY ORDERABLES Performing Organization Address [facility] de Phone Number [facility] [place] [phone] * Oligoclonal Banding CSF (08/15/2019 10:49 AM EDT) Oligo Bands CSF Test ? Result ?Flag ??Unit ? RefValue Oligoclonal Banding ??Serum Bands ?0 ? bands ??CSF Bands ?0 ? bands ??CSF Olig Bands Interpretation ?0 ? bands ?<4 ?The oligoclonal band assay detected 3 or fewer unique IgG ?bands in the CSF. This is a negative result. ?Test Performed by: ?[facility] ?[address] [place] [address] ?Special Service Representative: Jose Sands M.D. Ph.D.; CLIA# [id number] [facility] Charles Review 08/15/2019 10:4 9 AM EDT 08/16/2019 12:03 PM EDT Narrative Resulting Agency Comment Spec In Lab Wyatt Higgins MD BODY FLUIDS AND STOO LS ORDERABLES [facility] [place] [address] * IgG Index CSF (08/15/2019 10:49 AM EDT) IgG Index, CSF Test ? Result ?Flag ??Unit ? RefValue Cerebrospinal Fl, CSF, IgG Index ??IgG Index, CSF ? 0.46 ? <=0.85 ??IgG, CSF ? 2.9 ? mg/dL ?<=8.1 ??Albumin, CSF ? 22.6 ?mg/dL ?<=27.0 ??IgG/Albumin, CSF ? 0.13 ? <=0.21 ??Synthesis Rate, CSF ?0.00 ?mg/24 h ??<=12 ??IgG, S ? 1170 ?mg/dL ?767 - 6710 ??Albumin, S ? 4200 ?mg/dL ?3200 - 4800 ??IgG/Albumin, S ? 0.28 ? <=0.40 ?Test Performed by: ?[facility] [address] ?[address] [place] [address] ?Special Service Representative: Jose Sands M.D. Ph.D.; IA# [id number] [facility] Charles Review 08/15/2019 10:4 9 AM EDT 08/16/2019 12:03 PM EDT Narrative Resulting Agency Comment Spec In Lab Wyatt Higgins MD BODY FLUIDS AND STOO LS ORDERABLES Performing Organization Address [facility]/ZIP Co de Phone Number [facility] [place] [address] * CSF Culture (08/15/2019 10:49 AM EDT) Central Nervous System Culture No growth [facility] Gram Stain Cytocentrifuge Gram Stain performed No Neutrophils seen. No microorganisms seen. [facility] Cerebrospinal fluid specimen (specimen) 08/15/2019 10:49 AM EDT 08/15/2019 11:35 AM EDT Narrative Resulting Agency Comment Spec In Lab Wyatt Higgins MD MICROBIOLOGY - GENER AL ORDERABLES Performing Organization Address [facility]/ZIP Co de Phone Number [facility] [place] [address] * Glucose Level CSF (08/15/2019 10:49 AM EDT) Glucose, CSF 101 mg/dL [facility] Comment:CSF at equilibrium e quals approximately 60-80% of plasma glucose. Cerebrospinal fluid specimen (specimen) 08/15/2019 10:49 AM EDT 08/15/2019 11:10 AM EDT Narrative Resulting Agency Comment Spec In Lab Wyatt Higgins MD BODY FLUIDS AND STOO LS ORDERABLES Performing Organization Address City/[facility]/ZIP Co de Phone Number [facility] [place] [address] * Protein Level CSF (08/15/2019 10:49 AM EDT) T Protein, CSF 42 15 - 45 mg/dL [facility] Xanthochromia Neg [facility] Cerebrospinal fluid specimen (specimen) 08/15/2019 10:49 AM EDT 08/15/2019 11:10 AM EDT Narrative Resulting Agency Comment Spec In Lab Wyatt Higgins MD BODY FLUIDS AND STOO LS ORDERABLES [facility] [place] [address] * LUMBAR PUNCTURE (08/15/2019 10:30 AM EDT) Narrative Elva Johnson MD - 08/15/2019 10:30 AM EDT Elva Johnson MD ? 08/15/2019 10:54 AM Lumbar Puncture Date/Time: 08/15/2019 10:53 AM Performed by: Elva Johnson MD Authorized by: Wyatt Higgins MD [facility] Protocol: ??Written consent obtained?: Yes ?Risks and [...] time out verifies correct patient, procedure, equipment, application support consultant and site/side marked as required: Indications: ??LP [...] Diagnoses Diagnosis Neuropathy Mononeuritis of unspecified site Neuropathy Mononeuritis of unspecified site documented in this encounter Care Teams Core Drill Operator Relationship Specialty Start Date End Date Ruth Munoz, CUTTING TORCH OPERATOR [address] [place] [address] PCP - General Family Medicine 02/05/19 documented as of this encounter
--- OUTSIDE RECORDS SUMMARY | 2024-05-15 11:09 | XMS_ITS | Encounter Summary ---
Author Organization [facility] [place] [address] Care Team Providers Care Immunologist Name Role Phone MunozRuth jerome Lilibeth JUAREZ Primary Care Provider + Reason for Visit * Reason Comments Medication Refill Encounter Details Date Type Department Care Team (Late st Contact Info) Description 09/11/2019 Refill [place] [address] Cathy Dillon APRN [facility] [place] [address] Status post bariatric surgery; Intestinal malabsorption, unspecified [...] EDT TH Visit (TeleHealth) [place] [address] Wyatt Higgins MD [facility] [place] [address] documented as of this encounter Visit Diagnoses Diagnosis Status post bariatric surgery Bariatric surgery status Intestinal malabsorption, unspecified type documented in this encounter Care Teams Immunologist Relationship Specialty Start Date End Date Ruth Munoz, LOCKSTITCHER [address] [place] [address] PCP - General Family Medicine 02/05/19 documented as of this encounter
--- OUTSIDE RECORDS SUMMARY | 2024-05-15 11:09 | XMS_ITS | Encounter Summary ---
[place] [address] Care Team Providers Care Milk Delivery Driver Name Role Phone Ruth Munoz APRN Primary Care Provider + Encounter Details Date Type Department Care Team (Latest Contact Info) Description 02/05/2019 1:30 PM EDT Laboratory Appointment Lab [address] [place] [address] Type 2 diabetes, controlled, with neuropathy; Vitamin D deficiency; Other iron deficiency anemia; Disorder of iron metabolism; Status post bariatric surgery; Intestinal malabsorption, unspecified type; Iron deficiency Social History Tobacco Use Types Packs/Day [...] AM EDT TH Visit (TeleHealth) [place] [address] Wyatt Higgins MD [facility] [place] [address] documented as of this encounter Procedures Procedure Name Priority Date/Time Associated Diagnosis Comments U ALBUMIN/CRE RATIO Routine 02/05/2019 1 0:29 AM EDT Type 2 diabetes, controlled, with neuropathy Vitamin D deficiency Other iron deficiency anemia HEMOGRAM Routine 02/05/2019 10:26 AM EDT Disorder of iron metabolism Status post bariatric surgery Intestinal malabsorption, unspecified type Iron deficiency DIFFERENTIAL, AUTOMATED Routine 02/05/2019 10:26 AM EDT Type 2 diabetes, controlled, with neuropathy Vitamin D deficiency Other iron deficiency anemia IRON AND TIBC Routine 02/05/2019 10:26 AM EDT Type 2 diabetes, controlled, with neuropathy Vitamin D deficiency Other iron deficiency anemia VITAMIN D, 25-HYDROXY Routine 02/05/2019 10:26 AM EDT Type 2 diabetes, controlled, with neuropathy Vitamin D deficiency Other iron deficiency anemia CBC (WITH DIFF) Routine 02/05/2019 10:26 AM EDT Type 2 diabetes, controlled, with neuropathy Vitamin D deficiency Other iron deficiency anemia TSH Routine 02/05/2019 10:26 AM EDT Type 2 diabetes, controlled, with neuropathy Vitamin D deficiency Other iron deficiency anemia HEMOGLOBIN A1C Routine 02/05/2019 10:26 AM EDT Type 2 diabetes, controlled, with neuropathy Vitamin D deficiency Other iron deficiency anemia FERRITIN Routine 02/05/2019 10:26 AM EDT Disorder of iron metabolism Status post bariatric surgery Intestinal malabsorption, unspecified type Iron deficiency VITAMIN B12 Routine 02/05/2019 10:26 AM EDT Type 2 diabetes, controlled, with neuropathy Vitamin D deficiency Other iron deficiency anemia LIPID PANEL (REFLEX DIRECT LDL) Routine 02/05/2019 10:26 AM EDT Type 2 diabetes, controlled, with neuropathy Vitamin D deficiency Other iron deficiency anemia COMPREHENSIVE METABOLIC PANEL (NON-FASTING) Routine 02/05/2019 10:26 AM EDT Type 2 diabetes, controlled, with neuropathy Vitamin D deficiency Other iron deficiency anemia documented in this encounter Results * U Albumin/Cre Ratio (02/05/2019 10:29 AM EDT) Alb/Cr Ratio, Random 7 0 - 29 mcg/mg Cr [facility] Comment: Reference Ranges: <30 mcg/mg: Normal [...] 2, 357? 362 U Albumin Conc, Random 3.6 mg/L [facility] U Creatinine 49 mg/dL [facility] Urine specimen (specimen) 02/05/2019 10:29 AM EDT 02/05/2019 10:36 AM EDT Narrative Resulting Agency Comment Spec In Lab Judith Reinoso MD URINE ORDERABLES [facility] [place] [address] * (ABNORMAL) Differential, Automated (02/05/2019 10:26 AM EDT) Neutrophils % 71.4 % [facility] Neutr Abs (ANC) 8.20(H) 1.70 - 6.10 x10(3)/mc L [facility] Lymphocytes % 20.3 % [facility] Lymphocytes Abs 2.3 0.9 - 3.2 x10(3)/mc L [facility] Monocytes % 6.3 % [facility] Monocyte Abs 0.7 0.3 - 0.9 x10(3)/ L [facility] Eosinophils % 1.1 % [facility] Eosinophils Abs 0.1 0.0 - 0.4 x10(3)/ L [facility] Basophils % 0.6 % [facility] Basophils Abs 0.1 0.0 - 0.1 x10(3)/ L [facility] Immature Gran % 0.30 % [facility] Comment: Immature granulocytes(IG's)percentage and absolute count will include metamyelocytes, myelocytes, and promyelocytes. Blood smears from CBCs yielding IG's will be scanned manually for concordance. If this scan disagrees with the automated IG or if promyelocytes are noted, a manual differential will be performed. Zahra Gran Abs 0.03 0.00 - 0.04 x10(3)/ L [facility] Blood specimen (specimen) 02/05/2019 10:26 AM EDT 02/05/2019 10:36 AM EDT Narrative Resulting Agency Comment Spec In Lab Judith Reinoso MD HEMATOLOGY ORDERA BLES Performing Organization Address City/[facility]/ZIP Co de Phone Number [facility] [place] [address] * (ABNORMAL) Vitamin B12 (02/05/2019 10:26 AM EDT) Vitamin B-12 1,870(H) 232 - 1,245 pg/mL [facility] Blood specimen (specimen) 02/05/2019 10:26 AM EDT 02/05/2019 10:36 AM EDT Narrative Resulting Agency Comment Spec In Lab Judith Reinoso MD CHEMISTRY ORDERAB LES [facility] [place] [address] * Vitamin D, 25-Hydroxy (02/05/2019 10:26 AM EDT) 25-OH Vit D Total 44 30 - 100 ng/mL [facility] Comment: Deficient <10 ng/mL Insufficient 10 to 29 ng/mL Sufficient 30 to 100 ng/mL Potential Intoxication >100 ng/mL According to the [place] National Osteoporosis Foundation, Vitamin D concentrations >30 ng/mL are sufficient to protect bone health. ??The National Kidney Foundation has similarly stated that patients with Vitamin D concentrations <30ng/mL should be considered to be insufficient or deficient. http://[employer]/nkf-guidelines http://[employer]/nejm-VitD The [employer] i[employer] Vitamin D Immunoassay detects both 25-OH Vitamin D2 and 25-OH Vitamin D3, but only a total Vitamin D concentration is reported. Blood specimen (specimen) 02/05/2019 10:26 AM EDT 02/05/2019 1:19 PM EDT Narrative Resulting Agency Comment Spec In Lab Judith Reinoso MD CHEMISTRY ORDERAB LES [facility] [place] [address] * Lipid Panel (02/05/2019 10:26 AM EDT) Chol, Total 206 mg/dL [facility] Comment: Lower Risk: <200 mg/dL Average Risk: 200-239 mg/dL Higher Risk: >gk=262 mg/dL Triglycerides 153 mg/dL [facility] Comment: Average Risk/Lower Risk: <150 mg/dL Borderline High Risk: 150-199 mg/dL High Risk: 200-499 mg/dL Very High Risk: >ng=765 mg/dL HDL 56 mg/dL [facility] Comment: Males: ?? Higher Risk: <40 mg/dL Females: ?? HIgher Risk: <50 mg/dL LDL Cholesterol 119 mg/dL [facility] Comment: Lowest Risk: <100 mg/dL Lower Risk: 100-129 mg/dL Borderline High Risk: 130-159 mg/dL High Risk: 160-189 mg/dL Very High Risk: >uf=338 mg/dL Chol/HDL Ratio 3.7 ratio [facility] Lipid Interpretation See Note [facility] Comment: Lipid management should be guided by a patient? s ASCVD risk, goals and preferences. ACC/AHA Guidelines recommend high intensity statin if clinical ASCVD or LDL greater than or equal to 190 mg/dL. http://[employer]/LOC-AXP-Rftkpxssc Adults aged 40-75 with LDL 70-189 mg/dL should have their 10 year ASCVD risk estimated with the ACC/AHA ASCVD risk jewelry estimator http://tools.acc.org/VMZWS-Yixe-Hkqstwels/ Statin should be discussed if risk greater [...] critical component of ASCVD risk reduction. Blood specimen (specimen) 02/05/2019 10:26 AM EDT 02/05/2019 10:36 AM EDT Narrative Resulting Agency Comment Spec In Lab Judith Reinoso MD CHEMISTRY ORDERAB LES [facility] [place] [address] * (ABNORMAL) Comprehensive metabolic panel (non-fasting) (02/05/2019 10:26 AM EDT) Glucose Lvl 124 65 - 199 mg/dL [facility] Comment:Diabetes: >=200 mg/d L plus symptoms BUN 8 8 - 18 mg/dL [facility] Creatinine 0.46(L) 0.70 - 1.20 mg/dL [facility] Sodium 145 135 - 145 mmol/L [facility] Potassium 4.0 3.5 - 5.0 mmol/L [facility] Comment: Please note: ??Patients with WBC >100,000 may have falsely elevated Potassium levels. ??For accurate Potassium quantification in these patients send serum separator tube (gold top) for subsequent determinations. ??Contact the Clinical Chemistry Laboratory if there are any questions. Chloride 105 98 - 107 mmol/L [facility] CO2 26 22 - 31 mmol/L [facility] Anion Gap 14 5 - 15 mmol/L [facility] Calcium 9.5 8.5 - 10.5 mg/dL [facility] Total Protein 7.8 6.1 - 8.0 gm/dL [facility] Albumin 4.0 3.2 - 5.2 gm/dL [facility] AST 16 0 - 30 unit/L [facility] ALT 17 0 - 30 unit/L [facility] Alk Phos 108(H) 40 - 104 unit/L [facility] Total Bilirubin 0.4 0.2 - 1.3 mg/dL [facility] Estimated GFR 112 >=60 mL/min/1. 73 m?? [facility] Comment: The eGFR was calculated using the CKD-EPI equation. As with all creatinine based estimates of kidney function, eGFR values calculated with the CKD-EPI equation are not accurate in patients with acute kidney failure, extremes of body mass or the acutely ill. http://[employer]/[facility]nkf eGFR 130 >=60 mL/min/1. 73 m?? [facility] Comment: The eGFR was calculated using the CKD-EPI equation. As with all creatinine based estimates of kidney function, eGFR values calculated with the CKD-EPI equation are not accurate in patients with acute kidney failure, extremes of body mass or the acutely ill. http://[employer]/DHnkf Blood specimen (specimen) 02/05/2019 10:26 AM EDT 02/05/2019 10:36 AM EDT Narrative Resulting Agency Comment Spec In Lab Judith Reinoso MD CHEMISTRY ORDERAB LES Performing Organization Address City/[facility]/ZIP Co de Phone Number [facility] [place] [address] * TSH (02/05/2019 10:26 AM EDT) [facility] TSH 1.36 0.27 - 4.20 mcIU/mL [facility] Blood specimen (specimen) 02/05/2019 10:26 AM EDT 02/05/2019 10:36 AM EDT Narrative Resulting Agency Comment Spec In Lab Judith Reinoso MD CHEMISTRY ORDERAB LES Performing Organization Address [facility] Co de Phone Number [facility] [place] [address] * (ABNORMAL) Hemoglobin A1c (02/05/2019 10:26 AM EDT) [facility] Hemoglobin A1C 7.4(H) 4.3 - 5.6 % [facility] Comment: Reference Range: 4.3 [...] 36: Suppl. 1, S67-74 Est Avg Gluc 166 mg/dL [facility] Comment: eAG equivalents for [...] into estimated average glucose values. ??Diabetes Care 2008:31(8):2066-3642. Blood specimen (specimen) 02/05/2019 10:26 AM EDT 02/05/2019 10:36 AM EDT Narrative Resulting Agency Comment Spec In Lab Judith Reinoso MD CHEMISTRY ORDERAB LES Performing Organization Address [facility] Co de Phone Number [facility] [place] [address] * Ferritin (02/05/2019 10:26 AM EDT) [facility] Ferritin 46 30 - 400 ng/mL [facility] Comment: Pediatric reference ranges not verified at [facility], interpret with caution. Reference ranges for females greater than 50 years of age approach values for men, i.e., 30-400 ng/mL. Blood specimen (specimen) 02/05/2019 10:26 AM EDT 02/05/2019 10:36 AM EDT Narrative Resulting Agency Comment Spec In Lab Cathy Dillon APRN CHEMISTRY ORDERAB LES Performing Organization Address [facility] Co de Phone Number [facility] [place] [address] * (ABNORMAL) Hemogram (02/05/2019 10:26 AM EDT) [facility] WBC 11.5(H) 4.0 - 9.5 x10(3)/[facility] RBC 5.17 4.00 - 5.21 x10(6)/[facility] Hemoglobin 14.0 11.7 - 15.5 gm/dL [facility] Hematocrit 44.5 35.7 - 45.8 % [facility] MCV 86.1 82.6 - 94.4 fL [facility] MCH 27.1 27.1 - 32.0 pg [facility] MCHC 31.5(L) 31.7 - 35.0 gm/dL [facility] Platelets 251 145 - 357 x10(3)/[facility] RDWSD 40.6 37.0 - 46.0 [facility] RDWCV 13.0 11.5 - 14.1 % [facility] MPV 10.5 7.6 - 12.9 [facility] nRBC % Auto 0.0 % [facility] nRBC Abs Auto 0.000 0.000 - 0.000 x10(3)/[facility] Blood specimen (specimen) 02/05/2019 10:26 AM EDT 02/05/2019 10:36 AM EDT Narrative Resulting Agency Comment Spec In Lab Cathy Dillon APRN HEMATOLOGY ORDERA BLES [facility] [place] [address] * (ABNORMAL) Iron and TIBC (02/05/2019 10:26 AM EDT) Iron 30 30 - 150 mcg/dL [facility] TIBC 313 250 - 450 mcg/dL [facility] Iron Saturation 10(L) 20 - 50 % [facility] Blood specimen (specimen) 02/05/2019 10:26 AM EDT 02/05/2019 10:36 AM EDT Narrative Resulting Agency Comment Spec In Lab Judith Reinoso MD CHEMISTRY ORDERAB LES [facility] [place] [address] documented in this encounter Visit Diagnoses Diagnosis Type 2 diabetes, controlled, with neuropathy Type II or unspecified type diabetes mellitus with neurological manifestations, not stated as uncontrolled Vitamin D deficiency Unspecified vitamin D deficiency Other iron deficiency anemia Disorder of iron metabolism Other disorders of iron metabolism Status post bariatric surgery Bariatric surgery status Intestinal malabsorption, unspecified type Iron deficiency Iron deficiency anemia, unspecified documented in this encounter Care Teams Milk Delivery Driver Relationship Specialty Start Date End Date Ruth Munoz APRN [address] [place] [address] PCP - General Family Medicine 02/05/19 documented as of this encounter
--- OUTSIDE RECORDS SUMMARY | 2024-05-15 11:09 | XMS_ITS | Encounter Summary ---
[place] [address] Care Team Providers Care Biomedical Engineering Technician Name Role Phone MunozRuth jerome LARRY Primary Care Provider + Encounter Details Date Type Department Care Team (Late st Contact Info) Description 02/07/2019 [place] [id number] Lauren Fowler RN Social History Tobacco Use [...] Telephone Encounter - Judith Reinoso MD - 02/07/2019 11:58 AM EDT Thanks & just efaxed script for metforminER 500 mg TID to her [facility]. JUDITH REINOSO MD * Telephone Encounter - Lauren Villaseñor, RN - 02/07/2019 10:21 AM EDT Pt left msg that her after visit summary from Monday's visit indicates she should stop taking her Metformin. Spoke to pt, she thinks it says that because Dr Reinoso was going to make a med adjustment to the Metformin but decided to increase Invokana instead. Metformin is no longer on med list. Can Dr Reinoso please add back on? Thank you! documented in this encounter Plan of Treatment Upcoming Encounters Date Type Department Care Team (Late st Contact Info) Description 02/19/2025 9:00 AM EDT TH Visit (TeleHealth) [place] [address] Wyatt Higgins MD [facility] [place] [address] documented as of this encounter Visit Diagnoses Not on filedocumented in this encounter Care Teams Biomedical Engineering Technician Relationship Specialty Start Date End Date Ruth Munoz APRN [address] [place] [address] PCP - General Family Medicine 02/05/19 documented as of this encounter
--- OUTSIDE RECORDS SUMMARY | 2024-05-15 11:09 | XMS_ITS | Encounter Summary ---
[place] [address] Care Team Providers Care Office Secretary Name Role Phone Ruth Munoz LARRY Primary Care Provider + Reason for Visit * Reason Comments Medication Management Patient Education Encounter Details Date Type Department Care Team (Late st Contact Info) Description 02/14/2020 Specialty [place] [address] Bria Yousif RPH Social History Tobacco Use [...] Progress Notes * Bria Yousif RPH - 02/14/2020 2:48 PM EDT Specialty Pharmacy Consultation; Bria Yousif RPH Comprehensive Medication Management (CMM): Specialty Consult, Opt Out Martha Benoit Diagnosis: Psoriasis Therapy Start Date: TBD (~02/18/2020) Contact in person or via telephone: telephone Ms. Martha Benoit is a 54 y.o. (1965) female who was contacted in regard to specialty medication. Spoke with patient regarding Humira. A review of the medication therapy was performed. The medication was filled as scheduled, and all medication related questions and concerns were addressed. The specialty pharmacy staff will follow up with the patient 5-7 days prior to next refill. Is the patient willing to proceed with the Clinical Assessment? No Summary and Recommendations: Martha Benoit was contacted for a new start consultation for Humira. The patient was driving at thetime of the call and did not have time to talk. She states that her son also takes Humira so she isfamiliar with the medication and injections. Medications, allergies and medical conditions were reviewed but not able to be reconciled. I encouraged the patient to call the specialty pharmacy withany questions or concerns regarding the medication. Economic Assessment: Patient is agreeable to medication copay: Yes Copay Amount: $3.00 Day Supply: 02/14/2020 Date Needed: maciej Therapy Assessment: Appropriate Therapy: Yes Current Medication Dosing/Route/Frequency: Humira PS starter kit inject 80mg subcutaneously once onday 1, 40 mg on day 8 then 40 mg every 14 days thereafter Additional equipment/supplies required: no Care Plan Reviewed and Approved by Pharmacist : Yes Medications Reviewed: Yes Medications reconciled: No Allergies Reviewed:Yes Allergies reconciled: No Pharmacist follow-up needed: Yes 1 month follow up consult Informed patient of specialty pharmacy services: Yes -Patient will be provided with welcome packet: Yes Date to be provided: 08/29/18 Delivery Method: pickle sorter -Patient returned signed Rights & Responsibilities: No Date to be provided: TBD Delivery Method: Mailing with this fill -Patient is aware a licensed pharmacist is [...] note) for provider review and follow up. Bria Yousif RPH 02/14/20 2:48 PM documented in this encounter Plan of Treatment Upcoming Encounters Date Type Department Care Team (Late st Contact Info) Description 02/19/2025 9:00 AM EDT TH Visit (TeleHealth) [place] [address] Wyatt Higgins MD [facility] [place] [address] documented as of this encounter Visit Diagnoses Not on filedocumented in this encounter Care Teams Office Secretary Relationship Specialty Start Date End Date Ruth Munoz APRN [address] [place] [address] PCP - General Family Medicine 02/05/19 documented as of this encounter
--- OUTSIDE RECORDS SUMMARY | 2024-05-15 11:09 | XMS_ITS | Encounter Summary ---
Author Organization [facility] [place] [address] Care Team Providers Care Shower Room Attendant Name Role Phone Ruth Munoz Lilibeth JUARZE Primary Care Provider + Encounter Details Date Type Department Care Team (Late st Contact Info) Description 10/07/2019 3:15 PM EST [place] [address] Wyatt Higgins MD [facility] [place] [address] Prince Sorensen MD [facility] [place] [address] Polyneuropathy Social History Tobacco Use Types Packs/Day Years [...] Sign Reading Time Taken Comments Blood Pressure 132/77 10/07/2019 3:17 PM EST Pulse 88 10/07/2019 3:17 PM EST Temperature - - Respiratory Rate - - Oxygen Saturation - - Inhaled Oxygen Concentration - - Weight 81.6 kg (180 lb) 10/07/2019 3:17 PM EST Height 160 cm (5' 3) 10/07/2019 3:17 PM EST rep orted Body Mass Index 31.89 10/07/2019 3:17 PM EST documented in this encounter Progress Notes * Prince Sorensen - 10/07/2019 3:15 PM EST Neurology Outpatient Clinic - 10/07/2019 Patient name: Martha Benoit Date of : 1965 PCP: Ruth Munoz APRN Clinic Attending: Dr. Higgins I have seen Martha Benoit, patient of Ruth Munoz APRN, at the request of Ruth Munoz for follow up of polynueropathy Patient's CC: worsening numbness and [...] on EMG that was last performed in 2017. Testing, she has undergone includes HbA1c which [...] mercury, arsenic, cadmium and lead. She was seen by the previous fellow in January,. [...] She was last seen by neurology at [facility] in January [place]. Patient states she thinks [...] to live with their single father in [place] where their father used to work in [...] denies any vision changes or focal weakness. Since last visit patient states still the same. We had performed ganglioside antibodies on her which revealed elevated Asilao GM1 antibodies. Thus, was sent for CSF testing which all came back normal. Past Medical & Surgical History: Patient Active [...] Julio Cesar Wright suggested lumbar puncture in [place] -if high protein, may need IVIG therapy or try two days of high dose steroid therapy ??? Preoperative Class III obesity BMI 43, S/P gastric bypass 01/04/16 Overview Note: Bariatric Surgery Program 1. Attended Introduction to the [facility] Bariatric Surgery Program seminar, a comprehensive two hour meeting that provides a program overview, education on bariatric surgeries offered at [facility], risks andbenefits, as well as patient expectations and follow up: 08/05/14. [facility] BSP Educational seminars viewed: 3. Grades on post-testin-100%. The [facility]SP Educational Handbook is provided at preoperative visit #1. 2. Pre-operative programmatic evaluations required: PCP evaluation and letter of support to proceedwith surgery, [facility]SP labwork (can be done on day of visit #1) and psychological evaluation- minimum of2 visits. 3. Bariatric Surgery Program evaluations with RD and RECONCILIATION MACHINE OPERATOR: 11/03/15 4. Weight history: 198 pounds on 08/25/04, 207 pounds on 03/20/09, 249 pounds on 07/01/14, 253 pounds on 02/20/15 5. Gallbladder status: 6. Insurer specific requirements: [place] medicaid- 3 months of supervised counseling 7. BSP Team meeting discussion: no Post surgery course: 1. Admitted to [facility] on 01/24/16 with nausea and vomiting, failure to progress diet.Transfer to [facility] on 01/25/16 ??? Vitamin D deficiency Overview [...] ureteral stone extraction Jul - [facility] [place] ??? Chronic foot pain-s/p heel spur surgeries ? ? Diabetic retinopathy & neuropathy Overview Note: +DM for 10+ years -on insulin since 2006, +severe diabetic neuropathy and mild retinopathy A1c 8.3%(02/19/10)<-8.8%(10/2009)<-8.1%(05/31)<-8.9%(04/30)<-10.4%(10/08/08) <-12.7(04/29)<-11.6%(12/28)<-10.6(06/29)<-9.7% (04/28) Normal c-peptide 3.3 -> 1.5 (02/19/10) icd 9 357.2 Medications: Current Outpatient Medications on File Prior to Visit Medication Sig Dispense Refill ??? omeprazole (PRILOSEC) 20 mg Capsule, Delayed [...] mg by mouth as needed. 3 ??? RESTASIS 0.05 % [address] [...] MOUTH EVERY WEEK 12 capsule 3 ??? SF 5000 PLUS 1.1 % Cream [...] mg by mouth 4 times daily. ??? insulin aspart protamine-insulin aspart 70/30 (NOVOLOG MIX 70-30 FLEXPEN) Insulin Pen Inject 15-20 units subcutaneously 2 times daily (Patient not taking: Reported on 08/15/2019) 45 mL 3 ??? BACLOFEN ORAL Take 5 mg by mouth 4 times daily. ??? ciclopirox (PENLAC) 8 % Solution ??? insulin lispro (HUMALOG) Solution Inject 15 Units subcutaneously. No current facility-administered medications on file prior to visit. Allergy: No Known Allergies Social History: Smoking: denies EtOH:denies Illicits:denies Review of systems: Negative except as stated above Physical Exam: Vitals: Temp: -- Heart Rate: [88] Resp: -- BP: (132)/(77) SpO2: -- Heart Rate from SpO2: -- [...] some exposure to pesticides during her childhood. On her previous visit we had worked her up more by obtaining blood work for ganglioside antibody as well as obtained CSF testing which was normal. Asialo GM1 was elevated at 65 (normal less than 50) but having normal CSF makes this more likely non specific finding vs possibly related to hereditary cause. We believe that diabetes is contributing to her current neuropathy. 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 Thisvariant has been linked with Charcot Brittany tooth type IIX disease. It has also been linked with ALSbut no evidence of upper motor neuron signs were seen on the patient. And this has been going on since last 13 years now. No evidence of autoimmune etiology behind her neuropathy. Pesticide exposure seems to be unlikely since her symptoms continue to worsen at currently too despite not being exposed at this stage. -Continue with gabapentin. Can try nortriptyline, duloxetine or topiramate. -Follow-up as needed. Seen with Neurology staff, Dr. Higgins. Prince Sorensen MD Clinical Neurophysiology Fellow Pager: [phone] 10/07/2019 Neurology Staff Note I have reviewed the [...] AM EDT TH Visit (TeleHealth) [place] [address] Wyatt Higgins MD [facility] [place] [address] documented as of this encounter Visit Diagnoses Diagnosis Polyneuropathy Unspecified hereditary and idiopathic peripheral neuropathy documented in this encounter Care Teams Shower Room Attendant Relationship Specialty Start Date End Date Ruth Munoz APRN [address] [place] [address] PCP - General Family Medicine 02/05/19 documented as of this encounter
--- OUTSIDE RECORDS SUMMARY | 2024-05-15 11:09 | XMS_ITS | Encounter Summary ---
Author Organization [facility] [place] [address] Care Team Providers Care Lifestyle Block Farmer Name Role Phone MunozRuth jerome Lilibeth JUAREZ Primary Care Provider + Encounter Details Date Type Department Care Team (Late st Contact Info) Description 02/05/2019 11:30 AM EDT Office [place] [address] Julio Cesar Wright MD [facility] [place] [address] Type 2 diabetes mellitus with diabetic neuropathy, unspecified whether halfway insulin use (Primary Dx) Social History Tobacco Use Types [...] Time Taken Comments Blood Pressure 113/59 02/05/2019 10:44 AM EDT Pulse 93 02/05/2019 10:44 AM EDT Temperature - - Respiratory Rate - - Oxygen Saturation - - Inhaled Oxygen Concentration - - Weight 83.5 kg (184 lb) 02/05/2019 10:44 AM EDT Height 160 cm (5' 3) 02/05/2019 10:44 AM EDT re ported Body Mass Index 32.59 02/05/2019 10:44 AM EDT documented in this encounter Progress Notes * Pérez Ferreira MD - 02/05/2019 11:30 AM EDT Neurology Neuromuscular Outpatient Clinic - Follow-up Encounter Patient name: Martha Benoit Date of : 1965 PCP: Patrick Clement MD Clinic Attending: Dr. Wright Patient ID: Martha Benoit is a 53 y.o. woman with a severe length dependent sensorimotor axonal polyneuropathy,thought to be due to a combination of poorly controlled diabetes and an unknown hereditary neuropathy given similar symptoms in her late sister, with some potential association with significant pesticide exposure during childhood in the [facility]. Interval History: Since last being seen in clinic, things have progressed. She has stinging pains in her legs and sometimes in her hands, and the burning is in my feet and legs, and it used to go up to my knees andnow it's in my upper thighs. She has some tingling in her hands in all of her fingertips, though sometimes she only has tingling in her 4th and 5th digits bilaterally. She does not think that resting her arms on a hard surface, bending her elbows, or performing any specific tasks exacerbate her hand symptoms. She has no other paresthesias or dysesthesias in her hands or arms. She feels tired all the time, and overall feels weaker in her hands and legs but cannot pinpoint any focal weakness. She walked to the bathroom and got a drink and ended up with an abscess in her left foot. They've been treating for at least 5 months. It's been hard healing it. She home health coming into her home to help with wound care. She uses a rolling walker with a seat, but notes I'm not supposed to walk at all. He's concerned if it gets infected I'll lose that foot. She has been taking gabapentin 600mg QHS for a long time and it helps me sleep! She recalls having tried taking it during the day more but I feel like my ankles swelled up. She recalls having discontinued her daytime dose and having a reduction in her swelling. She is willing to try taking a higher dose of gabapentin with careful attention to any fluid retention. She recalls having tried pregabalin years ago and thought it helped, but she stopped it because she was concerned about weight gain. She has not tired amitriptyline, nortriptyline, duloxetine, or milnacipran (among others). She uses lidocaine patches on her feet but she has not tried a topical lidocaine solution, or any other type of topical solutions like diclofenac sodium gel, capsaicin, etc. Of all the things she has tried, the percocets work the best. She has not had any physical therapy for a long time, and she is not very interested in going back;I went for two years and it didn't change anything. She has no new neck pains or back pains or bowel or bladder problems. Aside from the above, she denies any other new paresthesias, dysesthesias, weakness of any kind, visual changes, or any other neurological or constitutional symptoms of any kind on a comprehensive review of systems. PMHx/PSHx: Patient Active Problem List Diagnosis Code ??? [...] Iron deficiency E61.1 ??? Memory loss R41.3 Allergies: No Known Allergies Meds: ??? pediatric multivitamin Tablet, Chewable ??? VITAMIN D 50,000 unit Capsule ??? glipiZIDE (GLUCOTROL XL) 10 mg Tablet Extended Rel 24 hr ??? ciclopirox (PENLAC) 8 % Solution ??? SF 5000 PLUS 1.1 % Cream ??? folic acid (FOLVITE) 1 mg Tablet ??? insulin lispro (HUMALOG) Solution ??? metHOTREXate 2.5 mg Tablet ??? omeprazole (PRILOSEC) 20 mg Capsule, Delayed Release(E.C.) ??? pediatric multivitamin with iron Tablet, Chewable ??? triamcinolone (KENALOG) 0.1 % Ointment ??? INVOKANA 100 mg Tablet ??? insulin aspart protamine-insulin aspart 70/30 (NOVOLOG MIX 70-30 FLEXPEN) Insulin Pen ??? Calcium Citrate-Vitamin D3 315-250 mg-unit Tablet ??? cyanocobalamin, vitamin B-12, 500 mcg Tablet, Sublingual ??? ferrous sulfate 325 mg (65 mg iron) Tablet ??? oxyCODONE-acetaminophen (PERCOCET) 10-325 mg Tablet ??? gabapentin (NEURONTIN) 300 mg Capsule ??? lidocaine (LIDODERM) 5 %(700 mg/patch) ??? baclofen (LIORESAL) 10 mg tablet ??? metFORMIN (GLUCOPHAGE) 500 mg tablet SocHx: Social History Socioeconomic History ??? Marital status: [...] on file Comment: deferred Lifestyle ??? Physical activity: Days per week: Not on file Minutes per session: Not on file ??? Stress: Not on file Relationships ??? Social connections: Talks on phone: Not on file Gets together: Not on file Attends scientologist service: Not on file Active member of [...] Social History Narrative ??? Not on file FamHx: Family History Problem Relation Age of Onset ??? Diabetes Mother ??? Diabetes Father ??? Diabetes Other ??? High Cholesterol Other ??? Hypertension Other ??? Stroke Other ??? Obesity Other ??? Psoriasis Other ??? * Other congenital malformation in her son/kidney stone Sister had severe neuropathy diagnosed in her 30's, she is now Physical exam There were no vitals filed for this visit. Gen: Patient of apparent stated age, obese, well developed, in NAD Neck: Supple, no meningismus CV: RRR Resp: Even unlabored respirations Ext: Mild non-pitting edema, bilateral excoriations from frequent scratching, no bony deformity, heel patch in place over abscess on L foot Neuro Exam: MS: A&Ox4, clear language without expressive or receptive aphasia, able to repeat and name objects, no dysarthria, follows commands CN: PERRL, EOMI, visual vivas full Facial sensation intact, no facial asymmetry Hearing intact to voice BL Palate elevates symmetrically, tongue protrudes midline SCM and trap strength intact Motor: Atrophy of thenar and hypothenar eminence BL, no spasticity or rigidity. No fasciculations were seen. (-)Pronator drift BL, (-)Asterixis BL UE: 5/5 R, 5/5 L Arm abduction at shoulder 5/5 R, 5/5 L Elbow extension 5/5 R, 5/5 L Elbow flexion 5/5 R, 5/5 L Wrist extension 5/5 R, 5/5 L Wrist flexion 5/5 R, 5/5 L Wrist pronation 5/5 R, 5/5 L Wrist supination 5-/5 R, 5-/5 L Finger extension 5/5 R, 5/5 L Finger flexion 4-/5 R, 4-/5 L Airline Operations Agent 3/5 R, 3/5 L Interossei 4-/5 R, 4-/5 L ABP 5-/5 R, 5-/5 L Thumb flexion LE: 5/5 R, 5/5 L Hip flexion 5/5 R, 5/5 L Knee extension 5/5 R, 5/5 L Knee flexion 2/5 R, 1/5 L Foot inversion 3/5 R, 2/5 L Foot eversion 2/5 R, 2/5 L Toe flexion 1/5 R, 1/5 L Great toe extension 1/5 R, 1/5 L Great toe flexion 1/5 R, 1/5 L Foot dorsiflexion 4-/5 R, 4-/5 L Foot plantar flexion Sensation: Slightly reduced light touch and temperature in a glove distribution in her bilateral arms Significantly reduced light touch, temperature, and vibration in LE BL, from toes to proximal to her knees Proprioception impaired in BL great toes Reflexes: DTRs Trace R, Trace L Biceps Absent R, Absent L Brachioradialis Absent R, Absent L Triceps Absent R, Absent L Patellar Absent R, Absent L Achilles tendon Toes - R down, unable to test L due to abscess heel patch Coordination: Finger to nose intact with no dysmetria Rapid alternating movements & finger tapping smooth and symmetric Whole foot tapping smooth and symmetrical No tremor at rest or with motion Gait: Romberg deferred as she is not supposed to stand unassisted with her left heel abscess per her, wide based out-toed gait with rolling walker Prior studies: She has had Vit B12 and TSH, serum paraneoplastic panel checked in the past which were unremarkable. 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 woman with a severe length dependent sensorimotor axonal polyneuropathy,thought to be due to a combination of poorly controlled diabetes and an unknown hereditary neuropathy given similar symptoms in her late sister, with some potential association with significant pesticide exposure during childhood in the [facility]. Her bothersome paresthesias and dysesthesias have continued to progress with time, and she remains profoundly weak in her feet bilaterally. She is concerned about the role that early pesticide exposure may have played in her development of symptoms and is interested in being sent for a heavy metal screen; this has been ordered and she will go for a blood draw the next time she returns for other studies. She has only been taking a small dose of gabapentin secondary to concerns that increasing her dose may result in edema, but she is planning to try increasing her dose of gabapenitn to 300mg QAM and 600mg QHS with close observation for any increase in fluid retention and is hopeful her symptoms will improve. She likes having her medications prescribed directly by her PCP and is planning to discuss further adjustments to her gabapentin dose with her PCP soon. She would also like to discussother potential medications to use in the future with her PCP, but she is not interested in starting on anything new at this time. If these neuropathic dysesthesias do not respond to gabapentin, there are many other potential therapies these sensations may respond well to, including pregabalin, amitriptyline, nortriptyline, duloxetine, or milnacipran (among others), in addition to topical solutions like lidocaine cream, diclofenac sodium gel, capsaicin, etc. It was also noted that as she is offher feet to allow her abscess to heal, she should be careful not to become deconditioned; she has no interest in going for physical therapy at this time, and plans to be mindful of staying as active as possible within her restrictions. She will return to the neuromuscular clinic in 6 months, or sooner if needed. She has no other questions or concerns at this time. Seen with Dr. Wright. Préez Ferreira MD Clinical Neurophysiology Fellow Personal Pager #[phone] Epilepsy Neurology #[id number] * Julio Cesar Wright MD - 02/05/2019 11:30 AM EDT Hereditary neuropathy sister had a severe neuropathy as well. I saw and evaluated the patient with Dr. Ferreira .. I have reviewed the resident's history duringthe visit and I agree with the details as written. My neurological examination confirms the resident's findings. The assessment and plan were formulated in discussion with me at the time of the visitand I agree with them as documented. Discussed at length with patient about diagnostic considerations. Explained diagnosis and treatment.I went over medications, indications and side-effects. Patient understands and accepts our plan. Ifthere are any questions or problems, they will call ..Julio Cesar Wright MD documented in this encounter Plan of Treatment Upcoming Encounters Date Type Department Care Team (Late st Contact Info) Description 02/19/2025 9:00 AM EDT TH Visit (TeleHealth) [place] [address] Wyatt Higgins MD [facility] [place] [address] documented as of this encounter Results * Heavy metals screen, blood (07/11/2019 5:46 PM EDT) [facility] Heavy Metals Screen Test ? Result ?Flag ??Unit ?RefValue ------- Heavy Metals Scrn with Demographics ??Arsenic, B ? <1 ?ng/mL ?? 0-12 ? ---ADDITIONAL INFORMATION------- ?This test was developed and its performance characteristics ?determined by [facility] in a manner consistent with CLIA ?requirements. This test has not been cleared or approved by ?the U.S. Food and Drug Administration. ??Lead, B ?1.2 ? mcg/dL ??0.0-4.9 ? ---ADDITIONAL INFORMATION------- ?Testing performed by Inductively Coupled Plasma-Mass ?Spectrometry (ICP-MS). ?This test was developed and its performance characteristics ?determined by [facility] in a manner consistent with CLIA ?requirements. This test has not been cleared or approved by ?the U.S. Food and Drug Administration. ??Cadmium, B ? 0.2 ? ng/mL ?? 0.0-4.9 ? ---ADDITIONAL INFORMATION------- ?This test was developed and its performance characteristics ?determined by [facility] in a manner consistent with CLIA ?requirements. This test has not been cleared or approved by ?the U.S. Food and Drug Administration. ??Mercury, B ? <1 ?ng/mL ?? 0-9 ? ---ADDITIONAL INFORMATION------- ?This test was developed and its performance characteristics ?determined by [facility] in a manner consistent with CLIA ?requirements. This test has not been cleared or approved by ?the U.S. Food and Drug Administration. ??Venous/Capillary ? Venous ??Patient Street Address ? [address] ??Patient City ? [place] ??Patient State ?[place] ??Patient Zip Code ? [address] ??Patient County ? [place] ??Patient Home Phone ? [phone] ??Patient Race ? white ??Patient Ethnicity ?non ??Patient Occupation ? 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 na ??Health Care Provider Name ?Pérez Ferreira ??Health Care Provider Street Address ?[address] ??Health Care Provider City ?[place] ??Health Care Provider [place] ? [place] ??Health Care Provider Zip Code ?[address] ??Health Care Provider Phone ? [phone] ??Submitting Laboratory Phone ?[phone] ?Test Performed by: ?[facility] ?[address] [place] [address] ?Immigration Officer: Jose Sands M.D. Ph.D.; CLIA# [id number] [facility] Blood specimen (specimen) 07/11/2019 5:46 PM EDT 07/12/2019 1:00 PM EDT Narrative Resulting Agency Comment Spec In Lab Julio Cesar Wright MD CHEMISTRY ORDERABLES Performing Organization Address [facility]/State/ZIP Co de Phone Number [facility] [address] [place] [address] documented in this encounter Visit Diagnoses Diagnosis Type 2 diabetes mellitus with diabetic neuropathy, unspecified whether terminal operator insulin use- Primary documented in this encounter Care Teams Lifestyle Block Farmer Relationship Specialty Start Date End Date Ruth Munoz APRN [address] [place] [address] PCP - General Family Medicine 02/05/19 documented as of this encounter
--- OUTSIDE RECORDS SUMMARY | 2024-05-15 11:10 | XMS_ITS | Encounter Summary ---
[place] [address] Care Team Providers Care Laundry Agent Name Role Phone Nanda Read MD Primary Care Provider Encounter Details Date Type Department Care Team (Late st Contact Info) Description 02/15/2018 Telephone [place] [phone] Tracy Tavarez LPN Social History Tobacco Use Types Packs/Day [...] encounter Miscellaneous Notes * Telephone Encounter - Tracy Tavarez LPN - 02/15/2018 1:30 PM EDT R/c to patient who states her AVS states that she is taking Oxycodone 10 tablets 6 time per day andshe is taking one 6 times per day or 1 every four hours. Medication list corrected documented in this encounter Plan of Treatment Upcoming Encounters Date Type Department Care Team (Late st Contact Info) Description 02/19/2025 9:00 AM EDT TH Visit (TeleHealth) [place] [address] Wyatt Higgins MD [facility] [place] [address] documented as of this encounter Visit Diagnoses Not on filedocumented in this encounter Care Teams Laundry Agent Relationship Specialty Start Date End Date Nanda Read MD [facility] [address] [place] [address] PCP - General 09/14/10 06/06/18 documented as of this encounter
--- OUTSIDE RECORDS SUMMARY | 2024-05-15 11:10 | XMS_ITS | Encounter Summary ---
Author Organization [facility] [place] [address] Care Team Providers Care House Worker Name Role Phone Nanda Read MD Primary Care Provider [phone] Reason for Visit * Reason Comments Diabetes Encounter Details Date Type Department Care Team (Late st Contact Info) Description 02/12/2018 10:00 AM EDT Office Visit [place] [address] Judith Reinoso MD [facility] [place] [address] Type 2 diabetes, controlled, with neuropathy; Vitamin D deficiency; Other iron deficiency anemia Social History Tobacco Use Types Packs/Day Years [...] Sign Reading Time Taken Comments Blood Pressure 131/66 02/12/2018 9:41 AM EDT Pulse 78 02/12/2018 9:41 AM EDT Temperature - - Respiratory Rate - - Oxygen Saturation - - Inhaled Oxygen Concentration - - Weight 79.5 kg (175 lb 3.2 oz) 02/12/2018 9:41 A M EDT Height 160 cm (5' 3) 02/12/2018 9:41 AM EDT Body Mass Index 31.04 02/12/2018 9:41 AM EDT documented in this encounter Patient Instructions * Patient Instructions* Judith Reinoso MD - 02/12/2018 10:00 AM EDT Recent Results (from the past 24 hour(s)) Hemoglobin A1c Result Value Ref Range Hemoglobin A1C 7.5 (H) 4.3 - 5.6 % Est Avg Gluc 169 mg/dL Basic Metabolic Panel (non-fasting) Result Value Ref Range Glucose Lvl 212 (H) 65 - 199 mg/dL BUN 12 8 - 18 mg/dL Creatinine 0.55 (L) 0.70 - 1.20 mg/dL Sodium 141 135 - 145 mmol/L Potassium 4.4 3.5 - 5.0 mmol/L Chloride 104 98 - 107 mmol/L CO2 28 22 - 31 mmol/L Anion Gap 9 5 - 15 mmol/L Calcium 9.2 8.5 - 10.5 mg/dL Estimated GFR >60 >=60 Iron and TIBC Result Value Ref Range Iron 79 30 - 150 mcg/dL TIBC 322 250 - 450 mcg/dL Iron Saturation 25 20 - 50 % Hemogram Result Value Ref Range WBC 9.5 4.0 - 9.5 x10(3)/mcL RBC 4.74 4.00 - 5.21 x10(6)/mcL Hemoglobin 13.0 11.7 - 15.5 gm/dL Hematocrit 41.3 35.7 - 45.8 % MCV 87.1 82.6 - 94.4 fL MCH 27.4 27.1 - 32.0 pg MCHC 31.5 (L) 31.7 - 35.0 gm/dL Platelets 237 145 - 357 x10(3)/mcL RDWSD 40.9 37.0 - 46.0 fL RDWCV 12.7 11.5 - 14.1 % MPV 10.8 7.6 - 12.9 fL nRBC % Auto 0.0 % nRBC Abs Auto 0.000 0.000 - 0.000 x10(3)/mcL Differential, Automated Result Value Ref Range Neutrophils % 61.0 % Neutr Abs (ANC) 5.82 1.70 - 6.10 x10(3)/mcL Lymphocytes % 31.2 % Lymphocytes Abs 3.0 0.9 - 3.2 x10(3)/mcL Monocytes % 5.5 % Monocyte Abs 0.5 0.3 - 0.9 x10(3)/mcL Eosinophils % 1.2 % Eosinophils Abs 0.1 0.0 - 0.4 x10(3)/mcL Basophils % 0.7 % Basophils Abs 0.1 0.0 - 0.1 x10(3)/mcL Immature Gran % 0.40 % Zahra Gran Abs 0.04 0.00 - 0.04 x10(3)/mcL Assessment: 52 y.o. lady with Diabetes Type 2 s/p gastric bypass surgery 1.5 year ago with significant wt loss down 85 lbs from 250 to 165 lbs with BMI 29 and much better A1c at 6.8% today with very low dose insulin 70/30 mix 10-15u bid and no need for sliding scale at all. She is still having good c-peptide 2.9 from her own insulin production so she might be able to taper insulin to off in the future. She is very pleased with her wt loss and wants to lose more wt further to keep A1c < 6.5% for her diabetic neuropathy. Complication Risk Status: complications present +sever peripheral neuropathy in both feet and walking with walker to help her balance Also, treated for chronic vttamin D deficiency (25vitamin D down 18 and then better at 38-47 and now 70 today while taking vitamin D 50,000 iu 2x/wk per bariatric team. Her B12 was trending down [id number] to 300s and we already gave her B12 injection x1 on 03/09/16 as a booster dose for her neuropathy and recent lab showed normal B12 at 448 in . Plan: 1. Medication: Adjustment of diabetes treatment regime: To cont 70/30 mix 10-15u qam and qpm and allow her to taper the dose by 2u if needed to keep BG at target of 90-180 range. To use Humalog pen sliding scale as needed if BG>180 while on 70/30 mix based on 1u:20 BG ratio. To cont glipizideER 10 mg qAM, invokana 100 mg qAM, metformin 500 mg qd/bid (could not tolerate thehigher dose) Ok to cont vitamin D 50,000 iu 1x/week and cont 2 of Scio MVI which contains iron (she could not tolerate a separate iron supplement due to constipation). 2. To continue all other medications, vitamin [...] RTC: Next visit in 12 months (for 3-y post gastric bypass) or earlier needed. Will check lab before next visit for HbA1c, CBC, BMP, dLDL, 25vitamin D, B12, iron/TIBC and annual urine microalbumin/Cr. documented in this encounter Progress Notes * Judith Reinoso MD - 02/12/2018 10:00 AM EDT Endocrine Clinic Name: [facility] : 1965 Date: 02/12/2018 PCP: Nanda Read MD Provided by: Judith Reinoso MD Reason for visit: Follow-up diabetes s/p bariatric surgery with Dr. Mai on 01/04/16 with good wtlost of 75 bs today since the surgery and BMI 29-31 range. Diabetes treatment regimen: 70/30 10-15 u 2x/day (and rarely using Humalog sliding scale p.r.n for correction of high BG>180) Also, metformin 500 mg 1-2x/day, glipizideER 10 mg qAM, and Invokana 100 mg qd FSBG: average 140 over the past 2 weeks, ranging between 110s- 150s mg/dl Most recent HA1c: 7.5% today (was 6.8% on 08/10/17, 7.6% on 01/1717, 7.4% on 07/05/16, 8.4% on 01/05/16, 11/03/15, 8.5% on 11/03/15). Hypoglycemia during the interval time: None (rare in 60s-70s mid-day with late lunch but no low Bg at night) Diet: low fat/low carb diet Exercise: walking Complications: no changes during the interim. Prevention: same as last visit recently. She is having lots of stress due to family issue for her newly-born grandson who weighed 5 lbs at and is going to be discharged home to her son and not be taken away as her [id number] has drug addict issue. Her son needs to pay for high truck farmer fee but is willing to have his fist son home(already had 2 young daughters and this is first son). Otherwise, she has been stable but gained wt back 10 lbs from 165 to 175 lbs (used to lose 14 lbs at last visit in Jul 2017). She could not swallow pills well but at least taking all her meds in AM as instructed and 70/30 mixlow dose 10-15u BID with good BG control (A1c 6.8% which is excellent!). Her insurance covered for 70/30 mix well. She is now 2 year post bariatric surgery and is better [...] iu 2x/week to weekly since Jul 2017 (pending for the result today). She has been taking Scio multivitamin to 2 tab daily with normal iron levels today. Denies any changes in vision, no CP, SOB, GI issues, leg swelling or foot ulcer but still having thinner scalp hairs. She already had pretty normal dilated eye exam with only cataract ou (mild). [...] keratosis L82.1 ??? Gastroesophageal reflux K21.9 ??? Increased PTH level E34.9 ??? Iron deficiency E61.1 ??? Memory loss R41.3 ??? Abdominal pannus E65 ??? Surgery follow-up Z09 Current Outpatient Prescriptions on File Prior to Visit Medication Sig Dispense Refill ??? ergocalciferol (VITAMIN D) 50,000 unit Capsule Take 1 capsule by mouth once a week. 12 capsule 3 ??? ferrous sulfate 325 mg (65 mg iron) Tablet Take 1 tablet by mouth daily. After a meal with multivitamin 100 tablet 3 ??? glipiZIDE (GLUCOTROL XL) 10 mg Tablet Extended Rel 24 hr Take 1 tablet by mouth 2 times daily. 180 tablet 11 ??? oxyCODONE-acetaminophen (PERCOCET) 10-325 mg Tablet 10 tablets 6 times daily. ??? fluconazole (DIFLUCAN) 200 mg Tablet Take 1 tablet by mouth every 3 days. 2 tablet 0 ??? INVOKANA 100 mg Tablet TAKE 1 TABLET BY MOUTH ONCE DAILY 90 tablet 3 ??? insulin aspart protamine-insulin aspart 70/30 (NOVOLOG MIX 70-30 FLEXPEN) Insulin Pen Inject 15-30 Units subcutaneously 2 times daily (with meals). 45 mL 3 ??? BIOTIN ORAL Take 1 capsule by mouth daily. ??? omeprazole (PRILOSEC) 20 mg Capsule, Delayed Release(E.C.) Take 1 capsule by mouth daily. 90 capsule 3 ??? gabapentin (NEURONTIN) 300 mg Capsule Take 300 mg by mouth. ??? pediatric multivitamin with iron Tablet, Chewable Take 2 tablets by mouth daily. ??? lidocaine (LIDODERM) 5 %(700 mg/patch) Place 1 patch onto the skin every 12 hours as needed. ??? baclofen (LIORESAL) 10 mg tablet Take 10 mg by mouth 4 times daily. ??? metFORMIN (GLUCOPHAGE) 500 mg tablet Take 500 mg by mouth 2 times daily (with meals). No current facility-administered medications on file prior to visit. No Known Allergies Social History Social History ??? Marital status: Spouse name: N/A ??? Number of children: N/A ??? Years of education: N/A Occupational History ??? disabled Social History Main Topics ??? Smoking status: Never Smoker ??? Smokeless tobacco: Never Used ??? Alcohol use No ??? Drug use: No ??? Sexual activity: Not Asked Comment: deferred Other Topics Concern ??? None Social History Narrative FAMILY HISTORY Family History Problem Relation Age of Onset ??? Diabetes Mother ??? Diabetes Father ??? Diabetes Other ??? High Cholesterol Other ??? Hypertension Other ??? Stroke Other ??? Obesity Other ??? Psoriasis Other ??? * Other congenital malformation in her son/kidney stone Physical exam BP 131/66 Pulse 78 Ht 160 cm (5' 3) Wt 79.5 kg (175 lb 3.2 oz) BMI 31.04 kg/m2 Appearance: Non-obese, pleasant, NAD, looks more stressful today due to family litigation issue forher grandson, still having slight thin scalp hairs HEENT: PERRLA, EOMI Neck: no goiter or lymphadenopathy Cardiac: normal S1, S2, no murmur Chest: CTA, no wheeze or crackle. Abdomen: benign, NT, ND Ext: no pitting edema no foot ulcer Neuro: mild weakness, depressed reflexes Skin: No dry skin Recent labs Recent Results (from the past 24 hour(s)) Hemoglobin A1c Result Value Ref Range Hemoglobin A1C 7.5 (H) 4.3 - 5.6 % Est Avg Gluc 169 mg/dL Basic Metabolic Panel (non-fasting) Result Value Ref Range Glucose Lvl 212 (H) 65 - 199 mg/dL BUN 12 8 - 18 mg/dL Creatinine 0.55 (L) 0.70 - 1.20 mg/dL Sodium 141 135 - 145 mmol/L Potassium 4.4 3.5 - 5.0 mmol/L Chloride 104 98 - 107 mmol/L CO2 28 22 - 31 mmol/L Anion Gap 9 5 - 15 mmol/L Calcium 9.2 8.5 - 10.5 mg/dL Estimated GFR >60 >=60 Iron and TIBC Result Value Ref Range Iron 79 30 - 150 mcg/dL TIBC 322 250 - 450 mcg/dL Iron Saturation 25 20 - 50 % Hemogram Result Value Ref Range WBC 9.5 4.0 - 9.5 x10(3)/mcL RBC 4.74 4.00 - 5.21 x10(6)/mcL Hemoglobin 13.0 11.7 - 15.5 gm/dL Hematocrit 41.3 35.7 - 45.8 % MCV 87.1 82.6 - 94.4 fL MCH 27.4 27.1 - 32.0 pg MCHC 31.5 (L) 31.7 - 35.0 gm/dL Platelets 237 145 - 357 x10(3)/mcL RDWSD 40.9 37.0 - 46.0 fL RDWCV 12.7 11.5 - 14.1 % MPV 10.8 7.6 - 12.9 fL nRBC % Auto 0.0 % nRBC Abs Auto 0.000 0.000 - 0.000 x10(3)/mcL Differential, Automated Result Value Ref Range Neutrophils % 61.0 % Neutr Abs (ANC) 5.82 1.70 - 6.10 x10(3)/mcL Lymphocytes % 31.2 % Lymphocytes Abs 3.0 0.9 - 3.2 x10(3)/mcL Monocytes % 5.5 % Monocyte Abs 0.5 0.3 - 0.9 x10(3)/mcL Eosinophils % 1.2 % Eosinophils Abs 0.1 0.0 - 0.4 x10(3)/mcL Basophils % 0.7 % Basophils Abs 0.1 0.0 - 0.1 x10(3)/mcL Immature Gran % 0.40 % Zahra Gran Abs 0.04 0.00 - 0.04 x10(3)/mcL Assessment: 52 y.o. lady with Diabetes Type 2 s/p gastric bypass surgery 2 year ago with significant wt loss down 85 lbs from 250 to 165 lbs but gained back 10 lbs to 175 lbs today with BMI 29-31 range. A1c has been reasonable 6.8-7.6% range over the past 2 yrs with very low dose insulin 70/30 mix 10-15u bid and no need for sliding scale at all. She is still having good c-peptide 2.9 from her own insulin production which is good news. She is very pleased with her wt result and wants to lose more wt furtherand to keep A1c < 6.5-7% for her diabetic neuropathy. Complication Risk Status: complications present +sever peripheral neuropathy in both feet and walking with walker to help her balance Also, treated for chronic vttamin D deficiency (25vitamin D down 18 and then better at 38-47 and then better at 70 in Jul 2017 (pending for today), and already tapered vitamin D 50,000 iu 2x/wk to weekly per bariatric team. Her B12 was trending down from 400s to 300s and we already gave her B12 injection x1 on 03/09/16 as a booster dose for her neuropathy and recent lab showed normal B12 at 448 inApr'17 (pending today). Plan: 1. Medication: Adjustment of diabetes treatment regime: To cont 70/30 mix 10-15u qam and qpm and allow her to taper the dose by 2u if needed to keep BG at target of 90-180 range. To use Humalog pen sliding scale as needed if BG>180 while on 70/30 mix based on 1u:20 BG ratio. To cont glipizideER 10 mg qAM, invokana 100 mg qAM, metformin 500 mg qd/bid (could not tolerate thehigher dose) Ok to cont vitamin D 50,000 iu 1x/week and cont 2 of Scio MVI which contains iron (she could not tolerate a separate iron supplement due to constipation). 2. To continue all other medications, vitamin [...] RTC: Next visit in 12 months (for 3-y post gastric bypass) or earlier needed. Will [...] care. Judith Reinoso MD, PhD, FACE CC: Nanda Read MD documented in this encounter Plan of Treatment Upcoming Encounters Date Type Department Care Team (Late st Contact Info) Description 02/19/2025 9:00 AM EDT TH Visit (TeleHealth) [place] [address] Wyatt Higgins MD [facility] [place] [address] documented as of this encounter Results * U Albumin/Cre Ratio (02/05/2019 10:29 AM EDT) Alb/Cr Ratio, Random 7 0 - 29 mcg/mg Cr [facility] 362 U Albumin Conc, Random 3.6 mg/L [facility] U Creatinine 49 mg/dL [facility] Urine specimen (specimen) 02/05/2019 10:29 AM EDT 02/05/2019 10:36 AM EDT Narrative Resulting Agency Comment Spec In Lab Judith Reinoso MD URINE ORDERABLES Performing Organization Address City/[facility]/ZIP Co de Phone Number [facility] [place] [address] * (ABNORMAL) Iron and TIBC (02/05/2019 10:26 AM EDT) Iron 30 30 - 150 mcg/dL [facility] TIBC 313 250 - 450 mcg/dL [facility] Iron Saturation 10(L) 20 - 50 % [facility] Blood specimen (specimen) 02/05/2019 10:26 AM EDT 02/05/2019 10:36 AM EDT Narrative Resulting Agency Comment Spec In Lab Judith Reinoso MD CHEMISTRY ORDERAB LES Performing Organization Address City/[facility]/ZIP Co de Phone Number [facility] [place] [address] * (ABNORMAL) Vitamin B12 (02/05/2019 10:26 AM EDT) Vitamin B-12 1,870(H) 232 - 1,245 pg/mL [facility] Blood specimen (specimen) 02/05/2019 10:26 AM EDT 02/05/2019 10:36 AM EDT Narrative Resulting Agency Comment Spec In Lab Judith Reinoso MD CHEMISTRY ORDERAB LES Performing Organization Address City/[facility]/ZIP Co de Phone Number [facility] [place] [address] * Vitamin D, 25-Hydroxy (02/05/2019 10:26 AM EDT) 25-OH Vit D Total 44 30 - 100 ng/mL [facility] Comment: Deficient <10 ng/mL Insufficient 10 to 29 ng/mL Sufficient 30 to 100 ng/mL Potential Intoxication >100 ng/mL According to the [place] National Osteoporosis Foundation, Vitamin D concentrations >30 ng/mL are sufficient to protect bone health. ??The National Kidney Foundation has similarly stated that patients with Vitamin D concentrations <30ng/mL should be considered to be insufficient or deficient. http://RootsRated/nkf-guidelines http://RootsRated/nejm-VitD The IDS iSYS Vitamin D Immunoassay detects both 25-OH Vitamin D2 and 25-OH Vitamin D3, but only a total Vitamin D concentration is reported. Blood specimen (specimen) 02/05/2019 10:26 AM EDT 02/05/2019 1:19 PM EDT Narrative Resulting Agency Comment Spec In Lab Judith Reinoso MD CHEMISTRY ORDERAB LES [facility] [place] [address] * Lipid Panel (02/05/2019 10:26 AM EDT) Chol, Total 206 mg/dL [facility] Comment: Lower Risk: <200 mg/dL Average Risk: 200-239 mg/dL Higher Risk: >qa=040 mg/dL Triglycerides 153 mg/dL [facility] Comment: Average Risk/Lower Risk: <150 mg/dL Borderline High Risk: 150-199 mg/dL High Risk: 200-499 mg/dL Very High Risk: >ne=139 mg/dL HDL 56 mg/dL [facility] Comment: Males: ?? Higher Risk: <40 mg/dL Females: ?? HIgher Risk: <50 mg/dL LDL Cholesterol 119 mg/dL [facility] Comment: Lowest Risk: <100 mg/dL Lower Risk: 100-129 mg/dL Borderline High Risk: 130-159 mg/dL High Risk: 160-189 mg/dL Very High Risk: >pj=615 mg/dL Chol/HDL Ratio 3.7 ratio [facility] Lipid Interpretation See Note [facility] Comment: Lipid management should be guided by a patient? s ASCVD risk, goals and preferences. ACC/AHA Guidelines recommend high intensity statin if clinical ASCVD or LDL greater than or equal to 190 mg/dL. http://Edvisor.io.com/XYH-XBV-Pqzsbdhqi Adults aged 40-75 with LDL 70-189 mg/dL should have their 10 year ASCVD risk estimated with the ACC/AHA ASCVD risk steel estimator http://tools.acc.org/MCJEW-Tvgx-Rzwfvoykc/ Statin should be discussed if risk greater [...] Lab Judith Reinoso MD CHEMISTRY ORDERAB LES [facility] [place] [address] * (ABNORMAL) Comprehensive metabolic panel (non-fasting) (02/05/2019 10:26 AM EDT) Glucose Lvl 124 65 - 199 mg/dL [facility] Comment:Diabetes: >=200 mg/d L plus symptoms BUN 8 8 - 18 mg/dL [facility] Creatinine 0.46(L) 0.70 - 1.20 mg/dL [facility] Sodium 145 135 - 145 mmol/L [facility] Potassium 4.0 3.5 - 5.0 mmol/L [facility] Comment: Please note: ??Patients with WBC >100,000 may have falsely elevated Potassium levels. ??For accurate Potassium quantification in these patients send serum separator tube (gold top) for subsequent determinations. ??Contact the Clinical Chemistry Laboratory if there are any questions. Chloride 105 98 - 107 mmol/L [facility] CO2 26 22 - 31 mmol/L [facility] Anion Gap 14 5 - 15 mmol/L [facility] Calcium 9.5 8.5 - 10.5 mg/dL [facility] Total Protein 7.8 6.1 - 8.0 gm/dL [facility] Albumin 4.0 3.2 - 5.2 gm/dL [facility] AST 16 0 - 30 unit/L [facility] ALT 17 0 - 30 unit/L [facility] Alk Phos 108(H) 40 - 104 unit/L [facility] Total Bilirubin 0.4 0.2 - 1.3 mg/dL [facility] Estimated GFR 112 >=60 mL/min/1. 73 m?? [facility] Comment: The eGFR was calculated using the CKD-EPI equation. As with all creatinine based estimates of kidney function, eGFR values calculated with the CKD-EPI equation are not accurate in patients with acute kidney failure, extremes of body mass or the acutely ill. http://RootsRated/[facility] – MUSKOGEEnkf eGFR 130 >=60 mL/min/1. 73 m?? [facility] Comment: The eGFR was calculated using the CKD-EPI equation. As with all creatinine based estimates of kidney function, eGFR values calculated with the CKD-EPI equation are not accurate in patients with acute kidney failure, extremes of body mass or the acutely ill. http://RootsRated/DHnkf Blood specimen (specimen) 02/05/2019 10:26 AM EDT 02/05/2019 10:36 AM EDT Narrative Resulting Agency Comment Spec In Lab Judith Reinoso MD CHEMISTRY ORDERAB LES [facility] [place] [address] * TSH (02/05/2019 10:26 AM EDT) TSH 1.36 0.27 - 4.20 mcIU/mL [facility] Blood specimen (specimen) 02/05/2019 10:26 AM EDT 02/05/2019 10:36 AM EDT Narrative Resulting Agency Comment Spec In Lab Judith Reinoso MD CHEMISTRY ORDERAB LES [facility] [place] [address] * (ABNORMAL) Hemoglobin A1c (02/05/2019 10:26 AM EDT) [facility] Hemoglobin A1C 7.4(H) 4.3 - 5.6 % [facility] [...] 1, S67-74 Est Avg Gluc 166 mg/dL [facility] Comment: eAG equivalents for HbA1c [...] into estimated average glucose values. ??Diabetes Care 2008:31(8):2100-9981. Blood specimen (specimen) 02/05/2019 10:26 AM EDT 02/05/2019 10:36 AM EDT Narrative Resulting Agency Comment Spec In Lab Judith Reinoso MD CHEMISTRY ORDERAB LES [facility] [place] [address] documented in this encounter Visit Diagnoses Diagnosis Type 2 diabetes, controlled, with neuropathy Type II or unspecified type diabetes mellitus with neurological manifestations, not stated as uncontrolled Vitamin D deficiency Unspecified vitamin D deficiency Other iron deficiency anemia documented in this encounter Care Teams House Worker Relationship Specialty Start Date End Date Nanda Read MD [facility] [address] [place] [address] PCP - General 09/14/10 06/06/18 documented as of this encounter
--- OUTSIDE RECORDS SUMMARY | 2024-05-15 11:10 | XMS_ITS | Encounter Summary ---
[place] [address] Care Team Providers Care Reactor Technician Name Role Phone Patrick Clement MD Primary Care Provider Encounter Details Date Type Department Care Team (Late st Contact Info) Description 07/31/2018 Telephone [place] [id number] Julia Duarte Social History Tobacco Use Types Packs/Day Years [...] encounter Miscellaneous Notes * Telephone Encounter - Julia Duarte - 07/31/2018 8:50 AM EDT PATIENT CALLED WITH QUESTIONS RE: VITAMINS- SENDING MESSAGE TO PROVIDER TO RETURN THE PATIENTS CALL documented in this encounter Plan of Treatment Upcoming Encounters Date Type Department Care Team (Late st Contact Info) Description 02/19/2025 9:00 AM EDT TH Visit (TeleHealth) [place] [address] Wyatt Higgins MD [facility] [place] [address] documented as of this encounter Visit Diagnoses Not on filedocumented in this encounter Care Teams Reactor Technician Relationship Specialty Start Date End Date Patrick Clement MD PCP - General Family Medicine 06/07/18 02/04/19 documented as of this encounter
--- OUTSIDE RECORDS SUMMARY | 2024-05-15 11:10 | XMS_ITS | Encounter Summary ---
Author Organization [facility] [place] [address] Care Team Providers Care Machine Wiper Name Role Phone Patrick Clement MD Primary Care Provider [phone] Reason for Visit * Reason Comments Medication Refill Encounter Details Date Type Department Care Team (Late st Contact Info) Description 09/23/2018 Refill [place] [address] Judith Reinoso MD [facility] [place] [address] Social History Tobacco Use Types Packs/Day Years [...] Telephone Encounter - Tracy Tavarez LPN - 09/25/2018 9:33 AM EST Rx request received for glipizide twice daily per office note 02/12/18 once daily Called patient who verifies she has always had me take it twice daily 02/12/18 Plan: 1. Medication: Adjustment of diabetes treatment [...] mg qd/bid (could not tolerate thehigher dose) documented in this encounter Plan of Treatment Upcoming Encounters Date Type Department Care Team (Late st Contact Info) Description 02/19/2025 9:00 AM EDT TH Visit (TeleHealth) [place] [address] Wyatt Higgins MD [facility] [place] [address] documented as of this encounter Visit Diagnoses Not on filedocumented in this encounter Care Teams Machine Wiper Relationship Specialty Start Date End Date Patrick Clement MD PCP - General Family Medicine 06/07/18 02/04/19 documented as of this encounter
--- OUTSIDE RECORDS SUMMARY | 2024-05-15 11:10 | XMS_ITS | Encounter Summary ---
[place] [address] Care Team Providers Care Waste Oil Pumper Name Role Phone Patrick Clement MD Primary Care Provider [phone] Encounter Details Date Type Department Care Team (Late st Contact Info) Description 01/21/2019 Specialty [place] [id number] Sravanthi Cardoza RPH Social History Tobacco Use [...] Progress Notes * Sravanthi Cardoza RPH - 01/21/2019 12:20 PM EDT Clinical Management Plan: Refill Specialty Pharmacy Consultation; Sravanthi Cardoza RPH Comprehensive Medication Management (CMM) Martha Moon Benoit MsEdvin Benoit is a 53 y.o. (1965) female who was contacted for their specialty prescription, Humira. Patient states she has not started therapy due to a foot ulcer. I called her again today, I which she state I think I will start Humira soon. She still has the medication at home, unopened, but was unsure as to the expiration date on the box. We mailed it out initially in August 2018. We will continue to reach out to patient to inquire if she started her medication. The specialty pharmacy staff will follow up with the patient 5-7 days prior to next refill for reminder if needed. Sravanthi Cardoza RPH 01/21/19 12:20 PM documented in this encounter Plan of Treatment Upcoming Encounters Date Type Department Care Team (Late st Contact Info) Description 02/19/2025 9:00 AM EDT TH Visit (TeleHealth) [place] [address] Wyatt Higgins MD [facility] [place] [address] documented as of this encounter Visit Diagnoses Not on filedocumented in this encounter Care Teams Waste Oil Pumper Relationship Specialty Start Date End Date Patrick Clement MD PCP - General Family Medicine 06/07/18 02/04/19 documented as of this encounter
--- OUTSIDE RECORDS SUMMARY | 2024-05-15 11:10 | XMS_ITS | Encounter Summary ---
Author [facility] [place] [address] Care Team Providers Care Pay Station Department Manager Name Role Phone Patrick Clement MD Primary Care Provider [phone] Encounter Details Date Type Department Care Team (Late st Contact Info) Description 07/31/2018 Orders Only [place] [phone] Cathy Dillon, DETACHER [facility] [place] [address] Status post bariatric surgery; Intestinal malabsorption, unspecified [...] EDT TH Visit (TeleHealth) [place] [phone] Wyatt Higgins MD [facility] [place] [address] documented as of this encounter Visit Diagnoses Diagnosis Status post bariatric surgery Bariatric surgery status Intestinal malabsorption, unspecified type documented in this encounter Care Teams Pay Station Department Manager Relationship Specialty Start Date End Date Patrick Clement MD PCP - General Family Medicine 06/07/18 02/04/19 documented as of this encounter
--- OUTSIDE RECORDS SUMMARY | 2024-05-15 11:10 | XMS_ITS | Encounter Summary ---
[place] [address] Care Team Providers Care Motor Equipment Lieutenant Name Role Phone Nanda Read MD Primary Care Provider Encounter Details Date Type Department Care Team (Late st Contact Info) Description 08/11/2017 Telephone [place] [phone] Tracy Tavarez LPN Social History Tobacco Use [...] Telephone Encounter - Tracy Tavarez LPN - 08/22/2017 8:23 AM EDT Images from the original note were not included. Martha Benoit?? Female, 51 y.o., 1965 Weight: 74.8 kg (165 lb) Home: PCP: Nanda Read MD myD-H: Active Next Appt: 08/31/2017 ?? Message Received: Yesterday ? Judith Reinoso MD Isham, Gail, LPN ? Caller: Unspecified (1 week ago) ? Yes, Ok to try to send Rx for Iron sulfate 325 mg po qd after meal and ok take Iron at same timeas MVit. Called patient at which time above message was read to her. Patient agrees with plan of care. * Telephone Encounter - Tracy Tavarez LPN - 08/21/2017 9:02 AM EDT Images from the original note were not included. CyMartha?? Female, 51 y.o., 1965 Weight: 74.8 kg (165 lb) Home: PCP: Nanda Read MD myD-H: Active Next Appt: 08/31/2017 ?? Message Received: 1 week ago ? Judith Reinoso MD Isham, Gail, LPN ? Caller: Unspecified (1 week ago) ? If possible, she should try to take extra iron supplement (any brand) once daily after meal withvitC to enhance iron absorption. Ok to take glipizide BID as she has been doing & already efaxed script out for her. Thanks. JUDITH REINOSO MD ? Previous Messages Called patient at which time above message was read to her. Patient is asking due to financial reasons for Rx for Iron and if she can take Iron at same time as MVit rather then having to take vit c * Telephone Encounter - Tracy Tavarez LPN - 08/11/2017 2:26 PM EDT Martha Benoit - 08/10/17 - much better vitD << Less Detail ?? much better vitD ?? Judith Reinoso MD ?? Sent: MonAugust 10, 2017 ??7:39 PM ?? To: Carolyn Vigil Endocrinology Nurse ?? Message ?? Alex Molina, please tell pt that the pending lab for vitamin D at recent visit showed much better vitD at 70 (normal 30-100). So, pt should reduce vitamin-D 2x to 1x/week for now. Thanks, Judith ? ----- Message ----- Called patient at which time above message was read to her. Patient agrees with plan of care. Patient also asking for Rx for glipizide ER 10 mg twice daily Per office note patient to take once daily. Patient also states she is taking Flinstone MVI twice daily but can see that iron is still low. Patient is asking if she should take iron once daily to try to get her iron level up. Plan: 1. Medication: Adjustment of diabetes treatment [...] (could not tolerate thehigher dose) Ok to taper vitamin D 50,000 iu 1x/week and cont 2 of [place] MVI which contains iron (she couldnot tolerate a separate iron supplement due to constipation documented in this encounter Plan of Treatment Upcoming Encounters Date Type Department Care Team (Late st Contact Info) Description 02/19/2025 9:00 AM EDT TH Visit (TeleHealth) [place] [address] Wyatt Higgins MD [facility] [place] [address] documented as of this encounter Visit Diagnoses Not on filedocumented in this encounter Care Teams Motor Equipment Lieutenant Relationship Specialty Start Date End Date Nanda Read MD [facility] [address] [place] [address] PCP - General 09/14/10 06/06/18 documented as of this encounter
--- OUTSIDE RECORDS SUMMARY | 2024-05-15 11:10 | XMS_ITS | Encounter Summary ---
Author Organization [facility] [place] [address] Care Team Providers Care Automobile Detailer Name Role Phone Nanda Read MD Primary Care Provider [phone] Reason for Visit * Reason Onset Date Comments Medication Refill 05/08/2018 Encounter Details Date Type Department Care Team (Late st Contact Info) Description 05/08/2018 Refill [place] [address] Judith Reinoso MD [facility] [place] [address] Social History Tobacco Use Types Packs/Day Years [...] Telephone Encounter - Tracy Tavarez LPN - 05/08/2018 9:18 AM EDT 02/12/18 office note Plan: 1. Medication: Adjustment of diabetes treatment regime: To cont 70/30 mix 10-15u qam and qpm and allow her to taper the dose by 2u if needed to keep BG at target of 90-180 range. documented in this encounter Plan of Treatment Upcoming Encounters Date Type Department Care Team (Late st Contact Info) Description 02/19/2025 9:00 AM EDT TH Visit (TeleHealth) [place] [address] Wyatt Higgins MD [facility] [place] [address] documented as of this encounter Visit Diagnoses Not on filedocumented in this encounter Care Teams Automobile Detailer Relationship Specialty Start Date End Date Nanda Read MD [facility] [address] [place] [address] PCP - General 09/14/10 06/06/18 documented as of this encounter
--- OUTSIDE RECORDS SUMMARY | 2024-05-15 11:10 | XMS_ITS | Encounter Summary ---
Author Organization [facility] [place] [address] Care Team Providers Care Cyber Policy And Strategy Planner Name Role Phone Nanda Read MD Primary Care Provider [phone] Reason for Visit * Auth/Cert Specialty Diagnoses / Procedures Referred By Patricio monsivais Referred To Contact Diagnoses Localized adiposity Abdominal pannus Procedures PRO EXCISE EXCESS SKIN TISSUE, ABDOMEN ABDOMINOPLASTY (WRVU 17.11) Referral ID Status Reason Start Date Expiration Date Visits Re quested Visits Authorized [id number] 1 1 Encounter Details Date Type Department Care Team (Late st Contact Info) Description 06/29/2017 2:22 PM EDT - 06/29/2017 5:20 PM EDT Surgery [place] [address] Chetan Lund MD [facility] [place] [address] PANNICULECTOMY (WRVU 17.11) Social History Tobacco Use Types Packs/Day Years [...] Sign Reading Time Taken Comments Blood Pressure 147/56 06/29/2017 1:31 PM EDT Pulse 74 06/29/2017 1:31 PM EDT Temperature 36.7 ??C (98.1 ??F) 06/29/2017 1:31 PM ED T Respiratory Rate 16 06/29/2017 1:31 PM EDT Oxygen Saturation 98% 06/29/2017 1:31 PM EDT Inhaled Oxygen Concentration - - Weight 77.1 kg (169 lb 15.6 oz) 06/29/2017 1:31 PM EDT Height - - Body Mass Index 30.11 06/19/2017 4:22 PM EDT documented in this encounter Discharge Summaries * Lorie Ovalle PA - 06/30/2017 10:53 AM EDT PLASTIC SURGERY DISCHARGE SUMMARY Patient Name: Mratha Benoit Patient Age, : 51 y.o. 1965 Language, race, ethnicity: Azerbaijani, White, Not nor Date of Admission: 06/29/2017 Date of Discharge: 06/30/2017 Attending Physician: Chetan Lund MD Discharge Physician: Chetan Lund MD Discharge Diagnoses (Hospital Problems) and Secondary Diagnoses (Chronic Problems): Active Hospital Problems Diagnosis ??? Abdominal pannus Resolved Hospital Problems Diagnosis Date Resolved No resolved problems to display. Active Non-Hospital Problems Diagnosis ??? 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 Peripheral autonomic neuropathy due to diabetes mellitus ??? Increased PTH level ??? Iron deficiency ??? Memory loss ??? Gastroesophageal reflux ??? Seborrheic keratosis ??? Unspecified hypothyroidism ??? Peripheral neuropathy-severe generalized ??? Preoperative Class III obesity BMI 43, S/P gastric bypass 01/04/16 ??? Vitamin D deficiency ??? History of kidney stones-bilateral ??? Chronic foot pain-s/p heel spur surgeries ? ? Diabetic retinopathy & neuropathy Operations/Major Procedures: Procedure(s): ABDOMINOPLASTY (WRVU 17.11) MODIFIER PANNICULECTOMY 06/29/2017 History of Presentation: 51yo F pt with abdominal pannus. Per Dr Lund's note on 06/19/2017 She now weighs 176 lbs. Her current weight has been stable for 4-5 months. She has lost weight after gastric bypass which was performed 15 months ago. The patient reports she lost 80 pounds. She presents today because of increasing difficulty with keeping the fold under her pannus free of rashes and infection, and clean, and odor free. The patient reports she has back pain, but is unsure if the pannus is the cause. The patient reports she has constant yeast infections underneath her breasts. The patient states she has neuropathy. The patient is diabetic and takes insulin. The patient's A1C was 7.6 in January. She has taken less insulin after gastric bypass surgery. The patient reports she at times feels shaky. The patient denies smoking. The patient does not work. The patient uses a walker due toher neuropathy. The patient had a tubal ligation in the past. The patient reports her buttock skin is very thin. The patient has used creams for the active intertrigo in the past. She reports that this did not help improve the intertrigo, so she is currently not applying any cream underneath the pannus. The patient plans to have lab work done today. On 06/29/17 pt underwent panniculectomy. History obtained through patient interview, review of relevant records, and/or discussion with referring provider. Hospital Course: Patient [place] [facility] [place] and underwent the above procedure. The patient tolerated the above procedure well and was admitted post-operatively for routine post- operative care. Her hospital course was uncomplicated. Pt remained afebrile,with stable vital signs throughout her hospital stay. Today, POD#1 she has met all criteria for discharge home: her pain is well controlled with medications by mouth, she is tolerating a regular diet, is voiding spontaneously without difficulties, and is up and ambulating without complications. Pt has been deemed safe for discharge to home. Past Medical History No past medical history on file. Past Surgical History Past Surgical History: Procedure Laterality Date ??? [...] N/A 06/29/2017 ABDOMINOPLASTY (WRVU 17.11) performed by Chetan Lund MD at [facility] MAIN OR ??? PRO LAP GASTRIC BYPASS/BRADY-EN-Y N/A 01/04/2016 @LAPAROSCOPIC GASTROPLASTY, performed by Jose Mai MD at [facility] MAIN OR ??? PRO UPPER GI ENDOSCOPY, BIOPSY 11/16/2011 EGD WITH BIOPSY performed by ALISA RICHARDS at [facility] ENDOSCOPY ??? PRO UPPER GI ENDOSCOPY, DIAGNOSTIC N/A 11/04/2015 EGD, UPPER GI ENDOSCOPY performed by Kisha Doss MD at [facility] ENDOSCOPY ??? PRO UPPER GI ENDOSCOPY, DIAGNOSTIC N/A 01/04/2016 ENDOSCOPY, UPPER GI, DIAGNOSTIC, WITH OR WITHOUT SPECIMENS performed by Jose Mai MD at [facility] MAIN OR ??? TUBAL LIGATION ??? UPPER GI ENDOSCOPY, EXAM 11/16/2011 UPPER GI ENDOSCOPY performed by ALISA RICHARDS at [facility] ENDOSCOPY Procedures: 06/29/2017 Surgeon(s) and Role: * Chetan Lund MD - Primary * Gildardo Pedraza MD * Darin Zamora MD: Procedure(s): ABDOMINOPLASTY (WRVU 17.11) MODIFIER PANNICULECTOMY Vital Signs at Discharge: Wt Readings from Last 1 Encounters: 06/29/17 77.1 kg (169 lb 15.6 oz) Ht Readings from Last 1 Encounters: 06/19/17 160 cm (5' 3) Body mass index is 30.11 kg/(m^2). Last value Range last 24 hrs Temperature Temp: 37.2 ??C (99 ??F) Temp: [36.5 ??C (97.7 ??F)-37.3 ??C (99.1 ??F)] Heart Rate Heart Rate: 88 Heart Rate: [70-98] Blood Pressure BP: 100/55 BP: (87-151)/(44-82) Respiratory Rate Resp: 17 Resp: [11-19] SpO2 SpO2: 100 % SpO2: [95 %-100 %] Physical Exam on d/c: Intake/Output Summary (Last 24 hours) at 06/30/17 1053 Last data filed at 06/30/17 0907 Gross per 24 hour Intake 3468 ml Output 1929 ml Net 1539 ml General: Appears in no acute distress, pleasant, cooperative, resting comfortably in bed HEENT: atraumatic, normocephalic, sclerae anicteric, no noted facial asymmetries/echymosis/edema Respiratory: Breathing is non-labored, breath sounds are equal and present bilaterally, no wheezing, on room air Cardiovascular: No peripheral edema, RRR Abdomen: non distended, appropriately tender, soft, transverse abdominal incision c/d/i, bilateral SANDRA intact with good suction and ss output, umbilicus appears viable, abdominal rash with satellite lesions appears decreased minimally with fluconazole, similar rash in the folds of bilateral breasts with spread out satellite lesions consistent with fungal rash Extremities: no clubbing, no cyanosis, capillary refill <2sec, warm/dry and pink, motor and sensation intact on gross exam Mental Status: alert and oriented, normal mood/behavior, speech, motor activity, thought process Functional and Cognitive Status: Ambulating and cognitively intact. Important Studies and Lab Data: Labs:Last wbc, hgb, hct plt No results for input(s): WBC, HGB, HCT in the last 72 hours. Invalid input(s): PLT Imaging Studies: n/a Pending Studies and Lab Data: No current labs Medications: Your Medications New Medications Dose Details fluconazole 200 mg Tab Commonly known as: DIFLUCAN Take 1 tablet by mouth every 3 days. 200 mg Quantity: 2 tablet Refills: 0 oxyCODONE 10 mg Tab Commonly known as: ROXICODONE Take 1 tablet by mouth every 4 hours as needed for Pain. 10 mg Quantity: 18 tablet Refills: 0 Continued medications, unchanged Dose Details baclofen 10 mg Tab Commonly known as: LIORESAL Take 10 mg by mouth 4 times daily. 10 mg Refills: 0 BIOTIN ORAL Take 1 capsule by mouth daily. 1 capsule Refills: 0 ergocalciferol 50,000 unit Cap Commonly known as: ERGOCALCIFEROL Take 1 capsule by mouth every 3 days. 32026 Units Quantity: 30 capsule Refills: 3 gabapentin 300 mg Cap Commonly known as: NEURONTIN Take 300 mg by mouth. 300 mg Refills: 0 glipiZIDE 10 mg Tab Commonly known as: GLUCOTROL Take 10 mg by mouth 2 times daily (before meals). 10 mg Refills: 0 insulin aspart protamine-insulin aspart 70/30 Inpn Commonly known as: novoLOG Mix 70-30 FlexPen Inject 15-30 Units subcutaneously 2 times daily (with meals). 15-30 Units Quantity: 45 mL Refills: 3 INVOKANA 100 mg Tab TAKE 1 TABLET BY MOUTH ONCE DAILY Generic drug: canagliflozin Quantity: 90 tablet Refills: 3 ketoconazole 2 % Crea Commonly known as: NIZORAL Apply topically 2 times daily for 14 days. Quantity: 60 g Refills: 3 lidocaine 5 % Ptmd Commonly known as: LIDODERM Place 1 patch onto the skin every 12 hours as needed. 1 patch Refills: 0 metFORMIN 500 mg Tab Commonly known as: GLUCOPHAGE Take 500 mg by mouth 2 times daily (with meals). 500 mg Refills: 0 omeprazole 20 mg Cpdr Commonly known as: PriLOSEC Take 1 capsule by mouth daily. 20 mg Quantity: 90 capsule Refills: 3 oxyCODONE-acetaminophen 10-325 mg Tab Commonly known as: PERCOCET Take 1 tablet by mouth every 4 hours as needed for Pain. 1 tablet Refills: 0 pediatric multivitamin with iron Chew Take 2 tablets by mouth daily. 2 tablet Refills: 0 Allergies: No Known Allergies Immunizations Given this Hospitalization: There is no immunization history on file for this patient. Smoking Status at Discharge: History Smoking Status ??? Never Smoker Smokeless Tobacco ??? Never Used Discharge to: Home Discharge Instructions: Patient Instructions Discharge Instructions for Abdominoplasty/ Panniculectomy: During the first 1-3 weeks, expect to feel tired from the anesthesia and in general due to the healing process. Rest frequently during the day. You may have altered sensation, numbness, burning and or shooting pain which is common after surgery in the area operated on. Normal or near normal sensation should return within a few months but some areas may stay numb permanently. Please refrain from using any ice or heat to your surgical site. Heat or cold application to postoperative areas with altered sensation may lead to thermal injury ofthat skin. You will not be able to lift more than 5 pound for 6 weeks and no more than 10- 20 pounds for 3 months. You can return to work in 4-6 weeks or as determined by your provider. Do not engage in strenuous exercise like aerobics, jogging, tennis...etc for 3 months. Feel free towalk as much as you want, this improves your circulation, respiratory function and healing. Do not drive while taking your pain medication. You may wear your safety belt if you place a small pillow over your abdominal incision. No sexual activity for 6 weeks. No smoking for at least 3-6 weeks following your surgery. Smoking or second hand smoke increases the chances of skin/flap/tissue /loss. Drain Care: -The drains are made to collect fluid to reduce the risk of an infection and or the formation of a seroma or hematoma. The amount of fluid should decrease daily and turn light pink or light yellow. The drains will be removed by the provider when the output is < 30cc/day for two days in a row. Please keep a log of the output from each drain as you empty the drains and bring the log to your follow up visit with your surgeon. -At the end of each day milk the tubing and pour out the contents. This is done by sliding 2 fingers along the tubing toward the bulb. Hold the tubing in place with your thumb and index finger from your left hand and pinch the tubing with your thumb and index finger from your right hand and slide the fluid toward the bulb. This prevents the tube from malfunctioning and clogging. When you empty the bulb, unplug the stopper and empty the contents into a cup and record the amount in your log. After that, you can pour the fluid into the toilet. -After emptying the fluid, squeeze the bulb and place the stopper into the bulb. This creates suction to draw out the fluid from the pouch. When the bulb is compressed, it resembles a donut shape. The bulb will expand as fluid drains. Keep the bulb secure by fastening the bulb to your garment with a safety pin. Fasten the bulb below the place where tubing exits the body. There is a tab on the bulb to attach the safety pin made especially for that. -Remember to wash your hands for approximately 30sec before and after handling the drain system anddry your hands with a clean towel to prevent infection each time. If you don't already have a follow-up appointment scheduled with the nurses, you may call the clinic at [phone] and schedule an appointment to have your drains removed when the drainage is 30cc or less in a 24 hour period for 2 consecutive days. Incision Care: Generalized abdominal swelling above the incision may last for weeks to months due to tissue fluid build-up. Do not use ice or heat on your surgical site. After surgery sensation is altered and application ofice or heat may damage the tissues in that area. You may shower 48 hours after surgery. Do not take a bath or use a hot tub until your skin is completely healed. To reduce the strain on your incision, you should remain in a flexed/recliner chair position for about 5 days, this may take longer in some instances so let your body be your guide. You may remove your dressings after 48 hours if you still have some on. If you feel more comfortable with dressings under the binder, then you may replace them to suit your comfort needs. If present, nonabsorbable stitches are removed during your follow-up appointment. Occasionally you may get a spitting suture where a dissolving stitch becomes irritated and pushes to the surface of your skin. If this occurs, it is not an emergency. You may clip the stitch with clean scissor or call for an appointment with a nurse. Avoid tanning on incision lines for at least 6 months to minimize scarring. Do not use any [id number]-[id number] lotions, solutions, or herbal preparations on your incisions unlessdirected by your doctor. You will be provided with an abdominal binder or girdle to wear at your hips/over your surgical site. Wear this binder 24 hours a day until you see your doctor. You may remove it briefly to shower. Make sure the binder is not over your breasts but over your hips/surgical incision site. Fluconazole: You will be provided with a prescription of Fluconazole to take for your rash Please take 1 tablet every 72 hours. You will get a total of 2 tablets. If the rash continues, gets worse or does not improve after the entire course of antibiotics, please consult a mica miner blasting or your primary care provider. Please be very careful with taking oxycodone (for acute postoperative pain) together with fluconazole. Only take oxycodone as needed and take half of the oxycodone pill when pain is manageable. Fluconazole can increase the effectiveness of the narcotic and slow or stop your breathing. Oxycodone can cause an overdose, addiction, build a tolerance and cause . Narcotics: You may be given a prescription for a narcotic medication immediately following your surgery. Narcotics are prescribed for short-term (1-3 days) use to help treat your pain. Narcotics do not reduce inflammation and it is inflammation that is usually a major cause of pain after surgery. Narcotics have many side effects such as constipation, lightheadedness, dizziness, sedation, confusion, nausea and vomiting. Driving and the use of alcohol are not recommended while you are using narcotic pain medications. Non-steroidal anti-inflammatories (NSAIDS) such as aspirin, Aleve and ibuprofen (Advil, Motrin) aremedications that reduce pain and inflammation. NSAIDS may be used 48 hours after surgery to help alleviate the pain caused by inflammation. As you progress through your post-operative period, your pain should decrease and the use of narcotic medications should be less necessary. To reduce your chance of side effects, it is recommended that you save your narcotic medication for nighttime use and switch to NSAIDS or Acetaminophen (Tylenol) during the day. Alternative means of pain relief such as rest and relaxation, positioning, as well as decreasing stimulants such as coffee, tea, soft drinks, and nicotine may also help to alleviate pain. If you continue to experience significant pain 4-5 days after your procedure, it may be necessary to be re-evaluated by your physician or pain doctor. PRESCRIPTION RENEWALS: Renewal requests should be called in to our prescription line at [phone]. Narcotic renewals may be requested from 8am-4pm Monday through Monday. Due to patient safety, narcotic renewals will not be honored after hours or on weekends. It is best to make your request 2-3 days before you run out of your medication as it will take at least 24 hours for physician approval and nurse follow-up. Note that certain prescriptions, such as Percocet, Oxycodone, Vicodin, & Hydrocodone can not becalled in to a pharmacy and must be picked up or mailed to you. If mailed to you, expect 2-5 business days prior to arrival. Contact your doctor if: Your incision opens up. You have signs of infection that include: a temperature over 100.4F or 38C, redness or warmth spreading away from the incision lines after the first 48 hours, you notice a yellow pus-like or foul smelling drainage larger than dime size from the incisions or drainage sites, you feel increased pain that is not relived by your pain medicine, you have increasing swelling. During office hours: Monday - Monday 8am-5pm call [phone]. On weekends or after hours call [phone] and ask the glass ribbon machine operator assistant to page the plastic surgery resident fire battalion chief. Post Op Plan: - Please follow-up in plastic surgery clinic as scheduled for wound check, drain removal and activity modification update Future Appointments Date Time Provider Department Center 07/11/2017 11:20 AM Christine Whitley APRN [facility] 08/10/2017 9:30 AM [facility]Y [facility] 08/10/2017 10:30 AM Judith Reinoso MD [facility]o [facility] 08/10/2017 11:30 AM Yancy Pennington DO Leb Neuro [facility] General Instructions None Future Appointments and Orders Future Appointments Provider Department Dept Phone 07/11/2017 11:20 AM Christine Whitley APRN [facility] [place] [phone] 08/10/2017 9:30 AM ZULY THREE L Lab 3L [facility] [phone] 08/10/2017 10:30 AM Judith Reinoso MD Endocrinology at [place] [phone] 08/10/2017 11:30 AM Yancy Pennington DO Neurology at [place] [phone] Discharge Medications: Your Medications New Medications Dose Details fluconazole 200 mg Tab Commonly known as: DIFLUCAN Take 1 tablet by mouth every 3 days. 200 mg Quantity: 2 tablet Refills: 0 oxyCODONE 10 mg Tab Commonly known as: ROXICODONE Take 1 tablet by mouth every 4 hours as needed for Pain. 10 mg Quantity: 18 tablet Refills: 0 Continued medications, unchanged Dose Details baclofen 10 mg Tab Commonly known as: LIORESAL Take 10 mg by mouth 4 times daily. 10 mg Refills: 0 BIOTIN ORAL Take 1 capsule by mouth daily. 1 capsule Refills: 0 ergocalciferol 50,000 unit Cap Commonly known as: ERGOCALCIFEROL Take 1 capsule by mouth every 3 days. 85697 Units Quantity: 30 capsule Refills: 3 gabapentin 300 mg Cap Commonly known as: NEURONTIN Take 300 mg by mouth. 300 mg Refills: 0 glipiZIDE 10 mg Tab Commonly known as: GLUCOTROL Take 10 mg by mouth 2 times daily (before meals). 10 mg Refills: 0 insulin aspart protamine-insulin aspart 70/30 Inpn Commonly known as: novoLOG Mix 70-30 FlexPen Inject 15-30 Units subcutaneously 2 times daily (with meals). 15-30 Units Quantity: 45 mL Refills: 3 INVOKANA 100 mg Tab TAKE 1 TABLET BY MOUTH ONCE DAILY Generic drug: canagliflozin Quantity: 90 tablet Refills: 3 ketoconazole 2 % Crea Commonly known as: NIZORAL Apply topically 2 times daily for 14 days. Quantity: 60 g Refills: 3 lidocaine 5 % Ptmd Commonly known as: LIDODERM Place 1 patch onto the skin every 12 hours as needed. 1 patch Refills: 0 metFORMIN 500 mg Tab Commonly known as: GLUCOPHAGE Take 500 mg by mouth 2 times daily (with meals). 500 mg Refills: 0 omeprazole 20 mg Cpdr Commonly known as: PriLOSEC Take 1 capsule by mouth daily. 20 mg Quantity: 90 capsule Refills: 3 oxyCODONE-acetaminophen 10-325 mg Tab Commonly known as: PERCOCET Take 1 tablet by mouth every 4 hours as needed for Pain. 1 tablet Refills: 0 pediatric multivitamin with iron Chew Take 2 tablets by mouth daily. 2 tablet Refills: 0 Follow-up plan: Other/Consults: Code status: full code Future Appointments and Orders Future Appointments Provider Department Dept Phone 07/11/2017 11:20 AM Christine Whitley APRN [facility] [place] [phone] 08/10/2017 9:30 AM LAB, THREE L Lab 3L [facility] [phone] 08/10/2017 10:30 AM Judith Reinoos MD Endocrinology at [place] [phone] 08/10/2017 11:30 AM Yancy Pennington DO Neurology at [place] [phone] Future Appointments Date Time Provider Department Center 07/11/2017 11:20 AM Christine Whitley APRN [facility] 4 [facility] 08/10/2017 9:30 AM MARCK CARUSO L Lab [facility] 08/10/2017 10:30 AM Judiht Reinoso MD [facility] 08/10/2017 11:30 AM Yancy Pennington DO Leb Neuro [facility] Primary Care Provider: Nanda Read MD [phone] VNA: No discharge procedures on file. General Instructions None Your care was managed by the [facility] at [facility]. If you haveany questions or concerns, please feel free to contact us. Provider Contact Information: [place] [facility] [place] documented in this encounter Discharge Instructions * Patient Instructions* Lorie Ovalle PA - 06/29/2017 2:11 PM EDT Discharge Instructions for Abdominoplasty/ Panniculectomy: During the first 1-3 weeks, expect to feel tired from the anesthesia and in general due to the healing process. Rest frequently during the day. You may have altered sensation, numbness, burning and or shooting pain which is common after surgery in the area operated on. Normal or near normal sensation should return within a few months but some areas may stay numb permanently. Please refrain from using any ice or heat to your surgical site. Heat or cold application to postoperative areas with altered sensation may lead to thermal injury ofthat skin. You will not be able to lift more than 5 pound for 6 weeks and no more than 10- 20 pounds for 3 months. You can return to work in 4-6 weeks or as determined by your provider. Do not engage in strenuous exercise like aerobics, jogging, tennis...etc for 3 months. Feel free towalk as much as you want, this improves your circulation, respiratory function and healing. Do not drive while taking your pain medication. You may wear your safety belt if you place a small pillow over your abdominal incision. No sexual activity for 6 weeks. No smoking for at least 3-6 weeks following your surgery. Smoking or second hand smoke increases the chances of skin/flap/tissue /loss. Drain Care: -The drains are made to collect fluid to reduce the risk of an infection and or the formation of a seroma or hematoma. The amount of fluid should decrease daily and turn light pink or light yellow. The drains will be removed by the provider when the output is < 30cc/day for two days in a row. Please keep a log of the output from each drain as you empty the drains and bring the log to your follow up visit with your surgeon. -At the end of each day milk the tubing and pour out the contents. This is done by sliding 2 fingers along the tubing toward the bulb. Hold the tubing in place with your thumb and index finger from your left hand and pinch the tubing with your thumb and index finger from your right hand and slide the fluid toward the bulb. This prevents the tube from malfunctioning and clogging. When you empty the bulb, unplug the stopper and empty the contents into a cup and record the amount in your log. After that, you can pour the fluid into the toilet. -After emptying the fluid, squeeze the bulb and place the stopper into the bulb. This creates suction to draw out the fluid from the pouch. When the bulb is compressed, it resembles a donut shape. The bulb will expand as fluid drains. Keep the bulb secure by fastening the bulb to your garment with a safety pin. Fasten the bulb below the place where tubing exits the body. There is a tab on the bulb to attach the safety pin made especially for that. -Remember to wash your hands for approximately 30sec before and after handling the drain system anddry your hands with a clean towel to prevent infection each time. If you don't already have a follow-up appointment scheduled with the nurses, you may call the clinic at [phone] and schedule an appointment to have your drains removed when the drainage is 30cc or less in a 24 hour period for 2 consecutive days. Incision Care: Generalized abdominal swelling above the incision may last for weeks to months due to tissue fluid build-up. Do not use ice or heat on your surgical site. After surgery sensation is altered and application ofice or heat may damage the tissues in that area. You may shower 48 hours after surgery. Do not take a bath or use a hot tub until your skin is completely healed. To reduce the strain on your incision, you should remain in a flexed/recliner chair position for about 5 days, this may take longer in some instances so let your body be your guide. You may remove your dressings after 48 hours if you still have some on. If you feel more comfortable with dressings under the binder, then you may replace them to suit your comfort needs. If present, nonabsorbable stitches are removed during your follow-up appointment. Occasionally you may get a spitting suture where a dissolving stitch becomes irritated and pushes to the surface of your skin. If this occurs, it is not an emergency. You may clip the stitch with clean scissor or call for an appointment with a nurse. Avoid tanning on incision lines for at least 6 months to minimize scarring. Do not use any bdyz-fux-lcvwueb lotions, solutions, or herbal preparations on your incisions unlessdirected by your doctor. You will be provided with an abdominal binder or girdle to wear at your hips/over your surgical site. Wear this binder 24 hours a day until you see your doctor. You may remove it briefly to shower. Make sure the binder is not over your breasts but over your hips/surgical incision site. Fluconazole: You will be provided with a prescription of Fluconazole to take for your rash Please take 1 tablet every 72 hours. You will get a total of 2 tablets. If the rash continues, gets worse or does not improve after the entire course of antibiotics, please consult a mica miner blasting or your primary care provider. Please be very careful with taking oxycodone (for acute postoperative pain) together with fluconazole. Only take oxycodone as needed and take half of the oxycodone pill when pain is manageable. Fluconazole can increase the effectiveness of the narcotic and slow or stop your breathing. Oxycodone can cause an overdose, addiction, build a tolerance and cause . Narcotics: You may be given a prescription for a narcotic medication immediately following your surgery. Narcotics are prescribed for short-term (1-3 days) use to help treat your pain. Narcotics do not reduce inflammation and it is inflammation that is usually a major cause of pain after surgery. Narcotics have many side effects such as constipation, lightheadedness, dizziness, sedation, confusion, nausea and vomiting. Driving and the use of alcohol are not recommended while you are using narcotic pain medications. Non-steroidal anti-inflammatories (NSAIDS) such as aspirin, Aleve and ibuprofen (Advil, Motrin) aremedications that reduce pain and inflammation. NSAIDS may be used 48 hours after surgery to help alleviate the pain caused by inflammation. As you progress through your post-operative period, your pain should decrease and the use of narcotic medications should be less necessary. To reduce your chance of side effects, it is recommended that you save your narcotic medication for nighttime use and switch to NSAIDS or Acetaminophen (Tylenol) during the day. Alternative means of pain relief such as rest and relaxation, positioning, as well as decreasing stimulants such as coffee, tea, soft drinks, and nicotine may also help to alleviate pain. If you continue to experience significant pain 4-5 days after your procedure, it may be necessary to be re-evaluated by your physician or pain doctor. PRESCRIPTION RENEWALS: Renewal requests should be called in to our prescription line at [phone]. Narcotic renewals may be requested from 8am-4pm Monday through Monday. Due to patient safety, narcotic renewals will not be honored after hours or on weekends. It is best to make your request 2-3 days before you run out of your medication as it will take at least 24 hours for physician approval and nurse follow-up. Note that certain prescriptions, such as Percocet, Oxycodone, Vicodin, & Hydrocodone can not becalled in to a pharmacy and must be picked up or mailed to you. If mailed to you, expect 2-5 business days prior to arrival. Contact your doctor if: Your incision opens up. You have signs of infection that include: a temperature over 100.4F or 38C, redness or warmth spreading away from the incision lines after the first 48 hours, you notice a yellow pus-like or foul smelling drainage larger than dime size from the incisions or drainage sites, you feel increased pain that is not relived by your pain medicine, you have increasing swelling. During office hours: Monday - Monday 8am-5pm call [phone]. On weekends or after hours call [phone] and ask the glass ribbon machine operator assistant to page the plastic surgery resident fire battalion chief. Post Op Plan: - Please follow-up in plastic surgery clinic as scheduled for wound check, drain removal and activity modification update Future Appointments Date Time Provider Department Center 07/11/2017 11:20 AM Christine Whitley APRN [facility] 08/10/2017 9:30 AM LAB, THREE L Lab 3L [facility] 08/10/2017 10:30 AM Judith Reinoso MD [facility] 08/10/2017 11:30 AM Yancy Pennington DO [facility] * Attachments The following attachments cannot be sent through Care Everywhere. * SURGICAL DRAIN CARE (TAJIK) documented in this encounter Medications at Time of Discharge Medication Sig Dispensed Refills Start Date End Date oxyCODONE-acetaminop hen (PERCOCET) 10-325 mg Tablet Take 1 tablet by mouth 6 times daily. 06/12/2017 gabapentin (NEURONTIN) 300 mg Capsule Take 600 mg by mouth nightly. lidocaine (LIDODERM) 5 %(700 mg/patch) Place 1 patch onto the skin every 12 hours as needed. fluconazole (DIFLUCAN) 200 mg Tablet Take 1 tablet by mouth every 3 days. 2 tablet 06/30/2017 02/19/2018 oxyCODONE (ROXICODONE) 10 mg Tablet Take 1 tablet by mouth every 4 hours as needed for Pain. 18 tablet 06/30/2017 07/11/2017 ketoconazole (NIZORAL) 2 % Cream Apply topically 2 times daily for 14 days. 60 g 3 06/19/2017 07/03/2017 INVOKANA 100 mg Tablet TAKE 1 TABLET BY MOUTH ONCE DAILY 90 tablet 3 04/18/2017 06/02/2018 insulin aspart protamine-insulin aspart 70/30 (NOVOLOG MIX 70-30 FLEXPEN) Insulin Pen Inject 15-30 Units subcutaneously 2 times daily (with meals). 45 mL 3 04/18/2017 05/08/2018 glipiZIDE (GLUCOTROL) 10 mg Tablet Take 10 mg by mouth 2 times daily (before meals). 08/11/2017 BIOTIN ORAL Take 1 capsule by mouth daily. 02/12/2018 omeprazole (PRILOSEC) 20 mg Capsule, Delayed Release(E.C.)Indicat ions:Status post bariatric surgery,Intestinal malabsorption, unspecified type Take 1 capsule by mouth daily. 90 capsule 3 04/06/2017 05/04/2018 ergocalciferol (ERGOCALCIFEROL) 50,000 unit Capsule Take 1 capsule by mouth every 3 days. 30 capsule 3 07/05/2016 11/20/2017 oxyCODONE-acetaminop hen (PERCOCET) 10-325 mg Tablet Take 1 tablet by mouth every 4 hours as needed for Pain. 07/11/2017 pediatric multivitamin with iron Tablet, Chewable Take 2 tablets by mouth daily. 02/19/2018 baclofen (LIORESAL) 10 mg tablet Take 10 mg by mouth 4 times daily. 03/08/2021 metFORMIN (GLUCOPHAGE) 500 mg tablet Take 500 mg by mouth 2 times daily (with meals). 02/05/2019 documented as of this encounter Progress Notes * Destiny Moody RN - 06/30/2017 12:18 PM EDT The patient has met discharge criteria per policy. Discharge instruction reviewed and patient discharged to responsible adult. The After Visit Summary (AVS), and accompanying hand-outs have been reviewed with the patient; the patient /family verbalizes understanding at this time. Opportunity for clarification provided. Reportable sign and symptoms have been reviewed with patient. Patient???s pain level has been assessed and patient states that his/her level is tolerable at this time. PRN medication given prior to leaving. Teaching done, to include SANDRA drain stripping, emptying, cleaning recording patient verbalizes understanding with demonstration back to RN All new medications have been reviewed with the patient. Prescriptions given to patient. Patient D/C to home At time of discharge: A & O x 4, PERRL, vss, Lungs clear. Patient is on RA, no SOB, HAN, CP 5/5 strengths all extremities. No numbness or tingling Radial and dorsalis pulses normal incision(s) transverse intact, small amount of drainage, well approximated/drsgs C/D/I, skin C/D/I,No sign of PU or breakdown. IV removed no s/s of infection, inflammation, infiltration. Jaime D/C no sign of infection. Patient voiding, PVR WNL, ambulating independently, eating and drinking without issues at time of D/C Prior to D/C room searched and patient discharged with all belongs. Patient ambulated to entrance with own sitting walker and family. * Lilian Haley RN - 06/30/2017 2:59 AM EDT 06/29/17195106/29/172033 Adult Vital Signs Temp 37.2 ??C (99 ??F) -- Temp Source Oral -- Heart Rate 81 -- BP 118/63 -- BP Method Automatic -- Resp 16 -- SpO2 100 % -- Oxygen Therapy O2 Device NC -- O2 Flow Rate (L/min) 2 L/min -- Pain Scale/Rating Pain Assessment Scale -- Numbers (Numeric Rating Pain Scale) Pain Level -- 4 pt. Came to SSU at 1951 A+O. Acclimated to her nursing call light placed within her reach. Pt. Shown how to use the bed control to elevate her head.Hob up 30 degrees at present. Pt. Denies nausea, mikel. Sips of water. She is wearing her abd. Binder,appropiately placed. Her lower abd. Incision covered with dry abd.'s. Each of pt.'s SANDRA's to the right and left of abd. are holding good bulb suction with small red output-milked and emptied when she came to the SSU.Pt. Has some small red drainage posterier to her right lower abd. Binder. Her abd. Is softly rounded. Her lungs are clear auscultated bilat anteriorly. Pt. Did deep breathing at this time-later given an Incent. [place]. with post-op teaching. Pt. States her pain is 4/10 -tolerable. Pt. Given her ordered baclofen and neurontin and later at 2200 took oxycodone, 10 mg's with good pain relief. Pt.'s right arm IV site is benign. Pt.'s jaime is patent with qs clear yellow urine. * Lilian Haley RN - 06/30/2017 2:00 AM EDT Pt did up to 1750 on her incentive spirometer * Lucho Mart MD - 06/29/2017 9:11 PM EDT Plastic Surgery Post Op Check Patient ID: Martha Benoit is a 51 y.o. female Procedure(s): ABDOMINOPLASTY (WRVU 17.11) MODIFIER PANNICULECTOMY Subjective: No nausea/vomiting, chest pain, SOB, pain well controlled, offers no complaints Objective: Temp: [36.5 ??C (97.7 ??F)-37.2 ??C (99 ??F)] Heart Rate: [70-83] Resp: [11-19] BP: (118-151)/(56-82) SpO2: [95 %-100 %] Heart Rate from SPO2: [70 bpm-84 bpm] I/O this shift: In: 5 [I.V.:5] Out: 165 [Urine:150; Other:15] Physical Exam General: resting comfortably, no acute distress HEENT: normocephalic, atraumatic CVS: regular rate Pulm: non-labored breathing Abd: Abdominal binder in place. Abdomen soft, appropriately tender, lower abdominal dressing c/d/i,no evidence of hematoma. B/l SANDRA drains w/ serosanguinous output. Neuro: no focal deficits, moving all extremities Assessment/Plan: Martha Benoit is a 51 y.o. female s/p abdominoplasty panniculectomy, currently in stable condition and recovering well. - pain well controlled - hemodynamically stable Lucho Mart MD Pager: [phone] documented in this encounter H&P Notes * Lorie Ovalle PA - 06/29/2017 2:06 PM EDT INTERVAL H&P CC: abdominal pannus S: Martha Benoit's condition is unchanged since H&P originally performed. Denies any new ED visits, hospitalizations, trauma, or new events. Has been overall doing well. No past medical history on file. Past [...] Left ??? LITHOTRIPSY Left 12/26/2000 ??? PRO LAP GASTRIC BYPASS/BRADY-EN-Y N/A 01/04/2016 @LAPAROSCOPIC GASTROPLASTY, performed by Jose Mai MD at [facility] MAIN OR ??? PRO UPPER GI ENDOSCOPY, BIOPSY 11/16/2011 EGD WITH BIOPSY performed by ALISA RICHARDS at [facility] ENDOSCOPY ??? PRO UPPER GI ENDOSCOPY, DIAGNOSTIC N/A 11/04/2015 EGD, UPPER GI ENDOSCOPY performed by Kisha Doss MD at [facility] ENDOSCOPY ??? PRO UPPER GI ENDOSCOPY, DIAGNOSTIC N/A 01/04/2016 ENDOSCOPY, UPPER GI, DIAGNOSTIC, WITH OR WITHOUT SPECIMENS performed by Jose Mai MD at [facility] MAIN OR ??? TUBAL LIGATION ??? UPPER GI ENDOSCOPY, EXAM 11/16/2011 UPPER GI ENDOSCOPY performed by ALISA RICHARDS at [facility] ENDOSCOPY No Known Allergies No current facility-administered medications on file prior to encounter. Current Outpatient Prescriptions on File Prior to Encounter Medication Sig Dispense Refill ??? INVOKANA 100 mg Tablet TAKE 1 TABLET BY MOUTH ONCE DAILY 90 tablet 3 ??? insulin aspart protamine-insulin aspart 70/30 (NOVOLOG MIX 70-30 FLEXPEN) Insulin Pen Inject 15-30 Units subcutaneously 2 times daily (with meals). 45 mL 3 ??? glipiZIDE (GLUCOTROL) 10 mg Tablet Take 10 mg by mouth 2 times daily (before meals). ??? BIOTIN ORAL Take 1 capsule by mouth daily. ??? omeprazole (PRILOSEC) 20 mg Capsule, Delayed Release(E.C.) Take 1 capsule by mouth daily. 90 capsule 3 ??? ergocalciferol (ERGOCALCIFEROL) 50,000 unit Capsule Take 1 capsule by mouth every 3 days. 30 capsule 3 ??? oxyCODONE-acetaminophen (PERCOCET) 10-325 mg Tablet Take 1 tablet by mouth every 4 hours as needed for Pain. ??? gabapentin (NEURONTIN) 300 mg Capsule Take [...] by mouth 2 times daily (with meals). Family History Problem Relation Age of Onset ??? Diabetes Mother ??? Diabetes Father ??? Diabetes Other ??? High Cholesterol Other ??? Hypertension Other ??? Stroke Other ??? Obesity Other ??? Psoriasis Other ??? * Other congenital malformation in her son/kidney stone Social History Social History ??? Marital status: Spouse name: N/A ??? Number of children: N/A ??? Years of education: N/A Occupational History ??? disabled Social History Main Topics ??? Smoking status: Never Smoker ??? Smokeless tobacco: Never Used ??? Alcohol use No ??? Drug use: No ??? Sexual activity: Not on file Comment: deferred Other Topics Concern ??? Not on file Social History Narrative Review of Systems: Constitutional: denies fever, chills Skin: denies rashes, new growths Resp: denies any cough CV: denies CP GI: denies abd pain, N/V, diarrhea : denies dysuria MS: denies joint pain, swelling, edema Neuro: +numbness to bilateral lower extremities O: Patient Vitals for the past 24 hrs: BP Temp Pulse Resp SpO2 Weight 06/29/17 1331 147/56 36.7 ??C (98.1 ??F) 74 16 98 % 77.1 kg (169 lb 15.6 oz) NAD, A&Ox3 Non-labored respirations, clear to auscultation bilaterally Regular rate and rhythm AP: 51 y.o. female with Abdominal pannus. - After extensive discussion of the risks, benefits, and alteratives of surgical intervention, the patient consented to proceed with surgery. - IV antibiotics ordered - Discussed pain control with pt. Pt reports she is on chronic percocet, gabapentin, oxycontin for bilateral lower extremity numbness and pain. Pt requests additional oxycodone for pain postoperatively. Pt signed the opioid contract. - Proceed to OR for: Procedure(s): ABDOMINOPLASTY (WRVU 17.11) MODIFIER PANNICULECTOMY [place]ioid [place] 04/27/2017 [place] Query Date 06/29/2017 [place] QUERY DATE: 06/29/17 Risk Assessment Category: Anil Benoit is getting a prescription opioid for the treatment of acute post- operative pain related to the surgical procedure during this encounter. Pt has been advised to take the smallest dose possible to control pain and as the pain improves to take smaller doses and increase the time between doses. In addition to this medication, pt was educated on the non-opioid pain medications that can be taken for adjunct treatment of pain. Non-pharmacological treatments were also discussed that include but not limited to ice, elevation, and activity modification as appropriate. The Acute Opioid Therapy Informed Consent form has been completed during this encounter and sent tomedical records for scanning to chart. Lorie Ovalle PA-C Plastic Surgery Pager [phone] documented in this encounter Miscellaneous Notes * Plan of Care - Lilian Haley RN - 06/30/2017 10:46 AM EDT Problem: Patient Care Overview Goal: Plan of Care Review Outcome: Ongoing (Interventions Implemented as Appropriate) 06/30/17 0934 Coping/Psychosocial Plan Of Care Reviewed With patient OUTCOME EVALUATION NOTE: OUTCOME SUMMARY: Pt.'s vitals signs stable overnight. Her o2 sat dipped low while pt. slept ,not sustained, but necessitated o2 n/c, 2 liters to prevent dips. No dipping of o2 sats when pt. Awake. Her pain was controlled with oxycodone 10 mg's every 4 hours. Pt. 's SANDRA's held good bulb suction of appropriate red sanguinous output. Some teaching on how to empty SANDRA's and how to milk them done with pt. Which she verbalized understanding of. Pt.'s blood sugars ran 169 at the time of 2030 for which she was covered with 2 units of SS lispro, . Quick acting insulin. Then following a peanut butter sandwich, her blood sugar at the time of 2347 was 386 and pt. then refused her ordered lispro sliding scale coverage . Pt. then reported to this nurse, she had taken her own 70/30 insulin pen,10 units at [place] which she hadbrought from home. Dr. Mart notified and came to see pt. And he ordered pt. Could use her own 70/30 insulin as she does at home, and the form for pt. To use her own meds was signed and her insulin pen then checked by pharmacy. Q four hour blood sugars, also continued with sliding scale coverage.(see lab results for last nights blood sugars. Pt. 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 Her lower abd dressing remained dry and intact, no drainage, some small drainage to her SANDRA insertion site dressings.pt. Noted to have small red rash to thighs, abd. And upper torso for which she was ordered diflucan po.-no increase overnight. Pt. Was able to void after her jaime was removed. PLAN MOVING FORWARD: continue pain control, review SANDRA drain care and have pt. Demonstrate how to empty her SANDRA and milk it. Monitor blood sugars. C ontinue to assess surgical wounds. INDIVIDUALIZED FALL PREVENTION INTERVENTIONS: Patient-specific fall risk factors per assessment: [current deficits]: Post anesthesia, surgical pain and need to maintain a hunched stance(not stand up too straight), opiate pain meds, baseline walker Assistance [level of assistance required for transfers and ambulation]: one Supervision [direct monitoring required during toileting and ADLs]: Pulse oximetry, bed alrm until pt. First oob,purposeful rounding. Pt. Using her nursing call light appropiately, is A+O x4. Surveillance [continuous indirect monitoring]: See above Patient-specific fall prevention interventions for sensory deficits provided, if applicable: n/a CPG GOAL OUTCOME EVALUATION: Goal: Fall Prevention-Safe Patient Handling Outcome: Ongoing (Interventions Implemented as Appropriate) 06/30/17431 [place] Fall Risk History of Falling 0 Secondary Diagnosis 15 Ambulatory Aids 15 Intravenous Therapy/Heparin/Saline Lock 20 Gait/Transferring 0 (uses her own rolling walker) Mental Status 0 Score 50 OTHER [place] Fall Risk High Restraint Interventions Safety Promotion/Fall Prevention activity supervised;fall prevention program maintained;nonskid shoes/slippers when out of bed;safety round/check completed;toileting scheduled Goal: Infection Control Outcome: Ongoing (Interventions Implemented as Appropriate) 06/30/17 0432 Safety Interventions Isolation Precautions standard precautions maintained Infection Prevention environmental surveillance performed;equipment surfaces disinfected;rest/sleeppromoted Goal: Discharge Needs Assessment Outcome: Ongoing (Interventions Implemented as Appropriate) 06/30/17933 Discharge Needs Assessment Concerns Comments possible VNA for drain and wound assessment. Will need local DrEdvin, primary to remove SANDRA's-pt. lives [place], [place] Activity/Self Care Review of Systems Equipment Currently Used at Home walker, rolling Living Environment Transportation Available family or friend will provide * Op Note - Chetan Lund MD - 06/29/2017 5:33 PM EDT [facility] [place] Patient Name: Martha Benoit : [id number] MR#: [id number] Case Date: 06/29/2017 Surgeon: Surgeon(s) and Role: * Chetan Lund MD - Primary * Gildardo Pedraza MD * Darin Zamora MD Preoperative diagnosis: Abdominal pannus Postoperative diagnosis: Abdominal pannus Procedure(s) (LRB): ABDOMINOPLASTY (WRVU 17.11) (N/A) MODIFIER PANNICULECTOMY (Bilateral) Anesthesia: General Estimated Blood Loss: 50 ml Specimens removed during surgery: abdominal pannus 3.315 Kg Drains: Drain/Device Site 06/29/17 1630 Left lower abdomen collapsible closed device (Active) Drain/Device Site 06/29/17 1630 Right lower abdomen collapsible closed device (Active) Surgical Closure: Primary Closure - closure of ALL tissue levels during the original surgery regardless of wires, wickes, drains, or other devices extruding through the incision Disposition: awakened from anesthesia, extubated and taken to the recovery room in a stable condition, having suffered no apparent untoward event. Condition: doing well without problems (Please see the Surgical Encounter Summary for any Implant and Specimen details pertinent to this patient.) HPI/Surgical Indications: 51 year old female with symptomatic abdominal pannus. We offered her panniculectomy and she agreed, electing to proceed. Procedure Description: DATE OF SURGERY: June 29, 2017 Ms. Benoit is a 51-year-old woman with a symptomatic abdominal pannus and extensive rashes. She was seen in the office and offered panniculectomy to which she agreed understanding the potential risks and complications and electing to proceed. The patient was identified and marked in the preoperative holding area and brought to the operating room. She was placed on the operating room table in the supine position. Anesthetic monitors and SCDs were applied. After induction of general anesthesia, the patient was intubated orally and maintained on general anesthesia throughout the remainder of the case. The abdomen and flanks were prepped and draped in a standard sterile fashion. The operation began by freshening our preoperative surgical markings with marking pen and infiltrating the tentative incision line with 1% lidocaine with 100,000 epinephrine. After allowing adequate time for vasoconstrictive effect, our incision was made through skin, subcuticular tissue and fat. Dissection ensued from superficial to deep with electrocautery. At the level of the anterior rectus sheath, dissection ensued superiorly. The umbilical remnant was preserved in the midline and an infraumbilical vertical midline incision was made with cautery. Dissection then ensued around the umbilical remnant to the costal margins and xiphoid process bilaterally. The upper flap was transposed inferiorly and excess pannus tissue was excised and weighed. The weight was 3.315 kg. Hemostasis was achieved with a combination of hemostatic clips and electrocautery. A #19-Portuguese Isacc style drains were inserted and brought out through lateral incisional skin, secured with 2-0 Silk suture. Wounds were irrigated copiously and closure was performed in a multilayered fashion with 0-Vicryl for Rachael level fascia, 2-0 Vicryl for deep dermis and 3-0 Monocryl as a running subcuticular closure of the skin. The umbilical remnant was brought out in the vertical midline at the level of the posterior iliac crest and inset with 2-0 Vicryl and 4-0 Chromic gut sutures. Operative sites were cleansed and dried. Xeroform and bacitracin were applied across the wound margins. The drapes were taken down. The patient was placed in a fully fluffed and padded abdominal binder. She was weaned from anesthesia and extubated in the operating room and transitioned to her hospital bed in the semi-Durbin's position. The patient was transported to the Postanesthesia Care Unit where she was reported to be stable and breathing spontaneously. There were no apparent complications to the procedure. The patient tolerated the procedure well. All sponge and needle counts were reported as correct by nursing staff at the end of the case. Infection Bundle used? No Attestation: Case Date: 06/29/2017 I was present and I participated during the entire procedure (does not need to include opening and closing). CHETAN LUND MD 06/29/2017 * Brief Op Note - Chetan Lund MD - 06/29/2017 5:30 PM EDT Brief Operative Note Patient Name: Martha Benoit : [id number] MR#: [id number] Case Date: 06/29/2017 Surgeon: Surgeon(s) and Role: * Chetan Lund MD - Primary * Gildardo Pedraza MD * Darin Zamora MD Preoperative diagnosis: Abdominal pannus Postoperative diagnosis: Abdominal pannus Procedure(s) (LRB): ABDOMINOPLASTY (WRVU 17.11) (N/A) MODIFIER PANNICULECTOMY (Bilateral) Anesthesia: General Findings: Abdominal pannus Complications: none apparent Fluids: 900 ml Intraprocedure Crystalloid Total None Estimated Blood Loss: 50 ml Drains: # 19 Isacc x 2 Disposition: awakened from anesthesia, extubated and taken to the recovery room in a stable condition, having suffered no apparent untoward event. Condition: doing well without problems Infection Bundle used? No Attestation: Case Date: 06/29/2017 I was present and I participated during the entire procedure (does not need to include opening and closing). (Please see the Surgical Encounter Summary for any Implant and Specimen details pertinent to this patient.) Post-Op Plan: - Follow up in:14 days with Christine/nurse/telehealth - Wound Check - Suture removal: None - Dressings: remove drains per protocol - Other coordinating appointments needed: Diamante Whitley NP 8 weeks documented in this encounter Plan of Treatment Upcoming Encounters Date Type Department Care Team (Late st Contact Info) Description 02/19/2025 9:00 AM EDT TH Visit (TeleHealth) [place] [address] Wyatt Higgins MD [facility] [place] [address] documented as of this encounter Procedures Procedure Name Priority Date/Time Associated Diagnosis Comments POCT GLUCOSE Routine 06/30/2017 9:22 AM EDT POCT GLUCOSE Routine 06/30/2017 6:30 AM EDT POCT GLUCOSE Routine 06/30/2017 4:38 AM EDT POCT GLUCOSE Routine 06/30/2017 2:30 AM EDT POCT GLUCOSE Routine 06/29/2017 11:48 PM EDT POCT GLUCOSE Routine 06/29/2017 8:22 PM EDT POCT GLUCOSE Routine 06/29/2017 6:05 PM EDT MODIFIER PANNICULECTOMY 06/29/20 17 3:44 PM EDT Abdominal pannus PANNICULECTOMY (WRVU 17.11) 06/29/2017 3:44 PM EDT Abdominal pannus POCT GLUCOSE Routine 06/29/2017 1:49 PM EDT POCT HGB Routine 06/29/2017 documented in this encounter Results * POCT Glucose (06/30/2017 9:22 AM EDT) POC Glucose 169 65 - 199 mg/dL [facility] Comment: Supplemental ranges: <140 mg/dL before meals <180 mg/dL all other times of the day Blood specimen (specimen) 06/30/2017 9:22 AM EDT 06/30/2017 9:22 AM EDT Chetan Lund MD POINT OF CARE TEST O RDERABLES Performing Organization Address City/State/[facility] Co de Phone Number [facility] [place] [place] [address] * POCT Glucose (06/30/2017 6:30 AM EDT) POC Glucose 179 65 - 199 mg/dL [facility] Comment: Supplemental ranges: <140 mg/dL before meals <180 mg/dL all other times of the day Blood specimen (specimen) 06/30/2017 6:30 AM EDT 06/30/2017 6:30 AM EDT Chetan Lund MD POINT OF CARE TEST O SHAYAN Performing Organization Address [facility] Co de Phone Number [facility] [place] [address] * (ABNORMAL) POCT Glucose (06/30/2017 4:38 AM EDT) POC Glucose 291(H) 65 - 199 mg/dL [facility] Comment: Supplemental ranges: <140 mg/dL before meals <180 mg/dL all other times of the day Blood specimen (specimen) 06/30/2017 4:38 AM EDT 06/30/2017 4:38 AM EDT Chetan Lund MD POINT OF CARE TEST O SHAYAN Performing Organization Address [facility] Co de Phone Number [facility] [place] [place] [address] * (ABNORMAL) POCT Glucose (06/30/2017 2:30 AM EDT) POC Glucose 243(H) 65 - 199 mg/dL [facility] Comment: Supplemental ranges: <140 mg/dL before meals <180 mg/dL all other times of the day Blood specimen (specimen) 06/30/2017 2:30 AM EDT 06/30/2017 2:30 AM EDT Chetan Lund MD POINT OF CARE TEST O SHAYAN Performing Organization Address [facility] Co de Phone Number [facility] [place] [place] [address] * (ABNORMAL) POCT Glucose (06/29/2017 11:48 PM EDT) POC Glucose 386(H) 65 - 199 mg/dL [facility] Comment: Supplemental ranges: <140 mg/dL before meals <180 mg/dL all other times of the day Blood specimen (specimen) 06/29/2017 11:48 PM EDT 06/29/2017 11:48 PM EDT Chetan Lund MD POINT OF CARE TEST O SHAYAN Performing Organization Address [facility]/ZIP Co de Phone Number [facility] [place] [place] [address] * POCT Glucose (06/29/2017 8:22 PM EDT) POC Glucose 187 65 - 199 mg/dL [facility] Comment: Supplemental ranges: <140 mg/dL before meals <180 mg/dL all other times of the day Blood specimen (specimen) 06/29/2017 8:22 PM EDT 06/29/2017 8:22 PM EDT Chetan Lund MD POINT OF CARE TEST O SHAYAN Performing Organization Address [facility]/ZIP Co de Phone Number [facility] [place] [place] [address] * POCT Glucose (06/29/2017 6:05 PM EDT) POC Glucose 159 65 - 199 mg/dL [facility] Comment: Supplemental ranges: <140 mg/dL before meals <180 mg/dL all other times of the day Blood specimen (specimen) 06/29/2017 6:05 PM EDT 06/29/2017 6:05 PM EDT Chetan Lund MD POINT OF CARE TEST O SHAYAN Performing Organization Address [facility]/ZIP Co de Phone Number [facility] [place] [place] [address] * POCT Glucose (06/29/2017 1:49 PM EDT) POC Glucose 103 65 - 199 mg/dL [facility] Comment: Supplemental ranges: <140 mg/dL before meals <180 mg/dL all other times of the day Blood specimen (specimen) 06/29/2017 1:49 PM EDT 06/29/2017 1:49 PM EDT Chetan Lund MD POINT OF CARE TEST O RDERABLES [facility] [place] [address] * POCT HGB (06/29/2017) POC Hemoglobin 13.4 g/dL 06/29/2017 Chetan Lund MD POINT OF CARE TEST O RDERABLES documented in this encounter Visit Diagnoses Not on filedocumented in this encounter Administered Medications Inactive Administered Medications - up to 3 most recent administrations Medication Order MAR Action Action Date Dose Rate Site acetaminophen (TYLENOL) tablet 1,000 mg 1,000 mg, Oral, ONCE, 1 dose, On Ava 06/29/17 at 1345, Administer with SIP of H2O only., Day of Surgery (Day of Procedure), Routine Given 06/29/2017 2:17 PM EDT 1,000 mg bacitracin ointment ONCE PRN, Starting on Ava 06/29/17 at 1720, Until Mon06/30/17 at 1427, Intra-Operative (Intra-Procedure) Given 06/29/2017 5:20 PM EDT 1 Tube baclofen (LIORESAL) tablet 10 mg 10 mg, Oral, 4 TIMES DAILY, First dose on Ava 06/29/17 at 2100, Until Discontinued, Routine Given 06/30/2017 9:00 AM EDT 10 mg Given 06/30/2017 1:51 AM EDT 10 mg Given 06/29/2017 8:34 PM EDT 10 mg ceFAZolin (ANCEF) 2g in dextrose 5% 100 mL 2 g, Intravenous, EVERY 8 HOURS, 2 doses, First dose on Ava 06/29/17 at 1830, Last dose on Mon06/30/17 at 0230, Administer over 30 Minutes, *Beta-lactam based antibiotics (eg. Ampicillin, Cefazolin, Aztreonam) should be administered within 4 hours of the preceding intraoperative dose. *Vancomycin, Flouroquinolones, Clindamycin, Gentamicin, and Metronidazole should be administered within 8 hours of the preceding intraoperative dose., Recovery (Recovery-Hospital Unit), Indication for (Active or Suspected): Prophylaxis New Bag 06/30/2017 1:04 AM EDT 2 g 200 mL/ hr dextrose 50% IV syringe 25-50 mL 25-50 mL (12.5-25 g), Intravenous, EVERY 1 HOUR PRN, Starting on Mon06/29/17 at 1956, Until Mon06/30/17 at 1427, Low blood sugar, For BG 50-70: 120 mL Juice or Regular (not diet) soda OR 12.5 gram (25 mL) Dextrose 50% IV OR, if no IV access, 1 mg Glucagon IM. Recheck BG in 30 minutes. May repeat juice, dextrose or glucagon once per episode For BG less than 50: 240 mL Juice or Regular (not diet) soda OR 25 grams (50 mL) Dextrose 50% IV OR, if no IV access, 1 mg Glucagon IM. Recheck BG in 30 minutes. May repeat juice, dextrose, or glucagon once per episode. To avoid extravasation, push Dextrose 50% SLOWLY (3 mL over 1 minute) in a patent, running IV, preferably a central line. For persistent hypoglycemia, consider longer-acting treatment for the duration of the active insulin., Routine fluconazole (DIFLUCAN) tablet 200 mg 200 mg, Oral, EVERY 24 HOURS, 2 doses, First dose on Mon06/29/17 at 1930, Last dose on Mon06/30/17 at 1930, STAT, Indication for (Active or Suspected): Skin/Skin Structure Given 06/29/2017 10:10 PM EDT 200 mg gabapentin (NEURONTIN) capsule 300 mg 300 mg, Oral, NIGHTLY, First dose on Mon06/29/17 at 2100, Until Discontinued, Routine Given 06/29/2017 8:35 PM EDT 300 mg glucagon (human recombinant) injection SolR 1 mg 1 mg, Intramuscular, EVERY 1 HOUR PRN, Starting on Mon06/29/17 at 1956, Until Mon06/30/17 at 1427, Low blood sugar, For BG 50-70: 120 mL Juice or Regular (not diet) soda OR 12.5 gram (25 mL) Dextrose 50% IV OR, if no IV access, 1 mg Glucagon IM. Recheck BG in 30 minutes. May repeat juice, dextrose or glucagon once per episode For BG less than 50: 240 mL Juice or Regular (not diet) soda OR 25 grams (50 mL) Dextrose 50% IV OR, if no IV access, 1 mg Glucagon IM. Recheck BG in 30 minutes. May repeat juice, dextrose, or glucagon once per episode. To avoid extravasation, push Dextrose 50% SLOWLY (3 mL over 1 minute) in a patent, running IV, preferably a central line. For persistent hypoglycemia, consider longer-acting treatment for the duration of the active insulin., Routine HYDROmorphone (DILAUDID) syringe 0.2-0.4 mg 0.2-0.4 mg, Intravenous, EVERY 5 MIN PRN, Pain, Starting on Ava 06/29/17 at 1734, Until Ava 06/29/17 at 1934, For moderate pain (4-6) give: 0.2 mg every 5 minute prn For severe pain (7-10) give: 0.4 mg every 5 minutes prn Maximum dose: 4 mg per hour Hold for respiratory rate less than 10 per minute., PACU Recovery Given 06/29/2017 6:59 PM EDT 0.4 mg Given 06/29/2017 6:32 PM EDT 0.4 mg Given 06/29/2017 6:18 PM EDT 0.4 mg insulin aspart protamine-insulin aspart 70/30 (NovoLOG MIX 70/30 PEN) injection 15 Units 15 Units, Subcutaneous, 2 TIMES DAILY BEFORE MEALS, First dose on Mon06/30/17 at 0730, Until Discontinued, Routine Given 06/30/2017 6:39 AM EDT 15 Units insulin lispro (humaLOG) VIAL injection 1-4 Units 1-4 Units, Subcutaneous, EVERY 4 HOURS SCHEDULED, First dose on Mon06/29/17 at 2000, Until Discontinued, CORRECTION BOLUS Sensitive to insulin lean patient or total daily dose of all insulin needed to achieve glycemic control less than 30 units BG 140 - 160 Give 1 unit BG 161 - 200 Give 2 units BG 201 - 240 Give 3 units BG greater than 240, give 4 units and recheck BG in 2 hours. If less than 240 after two hours, give no insulin and resume prior schedule. If BG remains greater than 240, repeat 4 units (no more than three times) & call for new basal insulin orders. DO NOT hold if NPO, unless specifically told to do so., Routine Given 06/30/2017 9:31 AM EDT 2 Units Given 06/30/2017 4:40 AM EDT 4 Units Given 06/29/2017 8:31 PM EDT 2 Units Lactobacillus (BACID) tablet 1 tablet 1 tablet, Oral, DAILY, First dose on Mon06/29/17 at 2045, Until Discontinued, Routine Given 06/30/2017 9:00 AM EDT 1 tablet Given 06/30/2017 12:36 AM EDT 1 tablet lidocaine (LIDODERM) 5 % patch 2 patch 2 patch, Transdermal, NIGHTLY, First dose on Mon06/29/17 at 2300, Until Discontinued, Apply patch(es) for 12 hours, and then remove for 12 hours For b/l foot pain., Routine Patch Applied 06/30/2017 12:41 AM EDT 2 patches 20-Other (document in comment section) lidocaine (LIDODERM) patch REMOVAL Transdermal, DAILY, First dose on Mon06/30/17 at 0900, Until Discontinued, Remove lidocaine 5 %(700 mg/patch) patch lidocaine-EPINEPHrine 1 %-1:200,000 injection ONCE PRN, Starting on Mon06/29/17 at 1631, Until Mon06/30/17 at 1427, Intra-Operative (Intra-Procedure), Routine Given 06/29/2017 4:31 PM EDT 20 mLs 19- Surgical Site ondansetron (ZOFRAN) injection 4 mg 4 mg, Intravenous, EVERY 8 HOURS PRN, Starting on Ava 06/29/17 at 1956, Until Mon06/30/17 at 1427, Nausea, May repeat times one in 30 minutes if ineffective. If multiple antiemetics are ordered, use ondanstron first, Recovery (Recovery-Hospital Unit) ondansetron (ZOFRAN) tablet 4 mg 4 mg, Oral, EVERY 8 HOURS PRN, Starting on Ava 06/29/17 at 1956, Until Mon06/30/17 at 1427, Nausea, Vomiting, If multiple antiemetics are ordered, use ondansetron first. PO Preferred. If patient unable to take PO, may give IV if ordered. May repeat times one in 45 minutes if ineffective., Recovery (Recovery-Hospital Unit), Routine oxyCODONE (ROXICODONE) immediate release tablet 10 mg 10 mg, Oral, EVERY 4 HOURS PRN, Starting on Mon06/29/17 at 1813, Until Mon06/30/17 at 1427, Pain, severe pain 8-10, Routine Given 06/30/2017 11:13 AM EDT 10 mg Given 06/30/2017 6:25 AM EDT 10 mg Given 06/30/2017 1:56 AM EDT 10 mg pantoprazole (PROTONIX) tablet 40 mg 40 mg, Oral, DAILY, First dose on Mon06/30/17 at 0900, Until Discontinued, DO NOT CRUSH OR OPEN Therapeutic interchange for omeprazole (PriLOSEC) capsule 20 mg Given 06/30/2017 9:01 AM EDT 40 mg Patch Verification Transdermal, 2 TIMES DAILY, First dose on Mon06/30/17 at 0900, Until Discontinued, Verify lidocaine 5 %(700 mg/patch) patch. promethazine (PHENERGAN) injection 12.5 mg 12.5 mg, Intravenous, EVERY 30 MIN PRN, Nausea, Starting on Ava 06/29/17 at 1734, 2 doses, Until Mon06/29/17 at 1934, VESICANT - Dilute with a minimum of 10 mL saline. LARGE VEIN only. Inject over 10 minutes into the farthest port of a running IV infusion. Remain with the patient and STOP infusion immediately if patient reports burning. Avoid extravasation. If multiple antiemetics are ordered, use ondansetron first and if ineffective use prochlorperazine second and if ineffective use promethazine., PACU Recovery Given 06/29/2017 6:55 PM EDT 6.25 mg sodium chloride 0.9 % flush 5 mL 5 mL, Intravenous, 2 TIMES DAILY, First dose on Mon06/29/17 at 2100, Until Discontinued, Recovery (Recovery-Hospital Unit), Routine Given 06/30/2017 9:00 AM EDT 5 mLs Given 06/29/2017 8:37 PM EDT 5 mLs sodium chloride 0.9% infusion 1,000 mL, at 100 mL/hr, Intravenous, CONTINUOUS, Starting on Mon06/29/17 at 1830, Until Mon06/30/17 at 0629, Recovery (Recovery-Hospital Unit) New Bag 06/30/2017 4:27 AM EDT 1,000 mLs 100 mL/hr New Bag 06/29/2017 6:28 PM EDT 1,000 mLs 100 mL/hr documented in this encounter Active and Recently Administered Medications Times are shown in EDT. Scheduled Medication Order 06/28/2017 06/29/2017 06/30/2017 acetaminophen (TYLENOL) tablet 1,000 mg (COMPLETED) 1,000 mg, Oral, ONCE, 1 dose, On Ava 06/29/17 at 1345, Administer with SIP of H2O only., Day of Surgery (Day of Procedure), Routine 1345 (Canceled Entry - Provider: Emilie Arias RN - Reason: Transfer to a Procedural area)1417 (Given - Provider: Sumit Cook, BRENDAN) baclofen (LIORESAL) tablet 10 mg 10 mg, Oral, 4 TIMES DAILY, First dose on Ava 06/29/17 at 2100, Until Discontinued, Routine 2033 (Given - Provider: Lilian Haley RN) 0151 (Given - Provider: Lilian Haley RN)0900 (Given - Provider: Destiny Moody RN) ceFAZolin (ANCEF) 2g in dextrose 5% 100 mL 2 g, Intravenous, EVERY 8 HOURS, 2 doses, First dose on Ava 06/29/17 at 1830, Last dose on Mon06/30/17 at 0230, Administer over 30 Minutes, *Beta-lactam based antibiotics (eg. Ampicillin, Cefazolin, Aztreonam) should be administered within 4 hours of the preceding intraoperative dose. *Vancomycin, Flouroquinolones, Clindamycin, Gentamicin, and Metronidazole should be administered within 8 hours of the preceding intraoperative dose., Recovery (Recovery-Hospital Unit), Indication for (Active or Suspected): Prophylaxis 0104 (New Bag - Provider: Lilian Haley RN - Comment: last dose given in OR at 1600)0134 (Stopped - Provider: Lilian Haley RN)0230 (Canceled Entry - Provider: Lilian Haley RN - Reason: See comment - Comment: given prior) docusate sodium (COLACE) capsule 100 mg 100 mg, Oral, 2 TIMES DAILY, First dose on Ava 17 at 2100, Until Discontinued, Routine 2100 (Not Given - Provider: Lilian Haley RN - Reason: Patient/family refused) 0901 (Not Given - Provider: Destiny Moody RN - Reason: Patient/family refused) fluconazole (DIFLUCAN) tablet 200 mg 200 mg, Oral, EVERY 24 HOURS, 2 doses, First dose on Mon06/29/17 at 1930, Last dose on Mon06/30/17 at 1930, STAT, Indication for (Active or Suspected): Skin/Skin Structure 2210 (Given - Provider: Lilian Haley RN) fluconazole 400mg in sodium chloride 0.9% 200mL (COMPLETED) 400 mg, Intravenous, ONCE, 1 dose, On Mon06/29/17 at 1645, Administer over 120 Minutes, Indication for (Active or Suspected): Prophylaxis, Restricted Antibiotic: Please indicate the most appropriate choice: Pre-approved Indication (State the indication in Comments field) 1708 (Given - Provider: Ofelia Encarnacion) gabapentin (NEURONTIN) capsule 300 mg 300 mg, Oral, NIGHTLY, First dose on Mon06/29/17 at 2100, Until Discontinued, Routine 2034 (Given - Provider: Lilian Haley RN) insulin aspart protamine-insulin aspart 70/30 (NovoLOG MIX 70/30 PEN) injection 15 Units 15 Units, Subcutaneous, 2 TIMES DAILY BEFORE MEALS, First dose on Mon06/30/17 at 0730, Until Discontinued, Routine 06 (Given - Provid er: Lilian Haley RN) insulin lispro (humaLOG) VIAL injection 1-4 Units(Linked Group 1) 1-4 Units, Subcutaneous, EVERY 4 HOURS SCHEDULED, First dose on Mon06/29/17 at 2000, Until Discontinued, CORRECTION BOLUS Sensitive to insulin lean patient or total daily dose of all insulin needed to achieve glycemic control less than 30 units BG 140 - 160 Give 1 unit BG 161 - 200 Give 2 units BG 201 - 240 Give 3 units BG greater than 240, give 4 units and recheck BG in 2 hours. If less than 240 after two hours, give no insulin and resume prior schedule. If BG remains greater than 240, repeat 4 units (no more than three times) & call for new basal insulin orders. DO NOT hold if NPO, unless specifically told to do so., Routine 2030 (Given - Provider: Lilian Haley RN) 0000 (Not Given - Provider: Lilian Haley RN - Reason: See comment - Comment: pt. refused, notified.)0440 (Given - Provider: Lilian Haley RN)0931 (Given - Provider: Destiny Moody RN)1200 (Due) Lactobacillus (BACID) tablet 1 tablet 1 tablet, Oral, DAILY, First dose on Mon06/29/17 at 2045, Until Discontinued, Routine 003 (Given - Provid er: Lilian Haley RN)0900 (Given - Provider: Destiny Moody RN) lidocaine (LIDODERM) 5 % patch 2 patch(Linked Group 2) 2 patch, Transdermal, NIGHTLY, First dose on Mon06/29/17 at 2300, Until Discontinued, Apply patch(es) for 12 hours, and then remove for 12 hours For b/l foot pain., Routine 40 (Patch Applied - Provider: Lilian Haley RN - Comment: feet bilat) lidocaine (LIDODERM) patch REMOVAL(Linked Group 2) Transdermal, DAILY, First dose on Mon06/30/17 at 0900, Until Discontinued, Remove lidocaine 5 %(700 mg/patch) patch 899 (Patch Removed - Provider: Destiny Moody RN) pantoprazole (PROTONIX) tablet 40 mg 40 mg, Oral, DAILY, First dose on Mon06/30/17 at 0900, Until Discontinued, DO NOT CRUSH OR OPEN Therapeutic interchange for omeprazole (PriLOSEC) capsule 20 mg 900 (Given - Provid er: Destiny Moody RN) Patch Verification(Linked Group 2) Transdermal, 2 TIMES DAILY, First dose on Mon06/30/17 at 0900, Until Discontinued, Verify lidocaine 5 %(700 mg/patch) patch. 899 (Patch (dose an d location) verified - Provider: Destiny Moody RN) sodium chloride 0.9 % flush 5 mL 5 mL, Intravenous, 2 TIMES DAILY, First dose on Mon06/29/17 at 2100, Until Discontinued, Recovery (Recovery-Hospital Unit), Routine 2036 (Given - Provider: Lilian Haley RN) 0900 (Given - Provider: Destiny Moody RN) Continuous Medication Order 06/28/2017 06/29/2017 06/30/2017 lactated Ringers infusion 1,000 mL (CANCELED) 1,000 mL, at 100 mL/hr, Intravenous, CONTINUOUS, Starting on Ava 06/29/17 at 1345, Until Ava 06/29/17 at 1934, Day of Surgery (Day of Procedure) 1541 (New Bag - Provider: Ruchi Tyson CRNA)1736 (Anesthesia Volume Adjustment - Provider: Ofelia Encarnacion) sodium chloride 0.9% infusion 1,000 mL, at 100 mL/hr, Intravenous, CONTINUOUS, Starting on Ava 06/29/17 at 1830, Until Mon06/30/17 at 0629, Recovery (Recovery-Hospital Unit) 1828 (New Bag - Provider: Emilie Arias, BRENDAN) 0426 (Stopped - Provider: Lilian Haley, BRENDAN)0427 (New Bag - Provider: Lilian Haley, BRENDAN) PRN Medication Order 06/28/2017 06/29/2017 06/30/2017 bacitracin ointment (CANCELED) ONCE PRN, Starting on Ava 06/29/17 at 1720, Until Mon06/30/17 at 1427, Intra-Operative (Intra-Procedure) 1720 (Given - Provider: Chetan Lund MD) bisacodyl (DULCOLAX) suppository 10 mg 10 mg, Rectal, DAILY PRN, Starting on Ava 06/29/17 at 1956, Until Mon06/30/17 at 1427, Constipation, Administer if needed per patient's routine or if no bowel movement within 48 hours to achieve: 1) One bowel movement at least every 48 hours, AND 2) Without straining. If multiple bowel medications ordered, consider adding if docusate or milk of magnesia not sufficient., Routine dextrose 50% IV syringe 25-50 mL(Linked Group 3) 25-50 mL (12.5-25 g), Intravenous, EVERY 1 HOUR PRN, Starting on Ava 06/29/17 at 1956, Until Mon06/30/17 at 1427, Low blood sugar, For BG 50-70: 120 mL Juice or Regular (not diet) soda OR 12.5 gram (25 mL) Dextrose 50% IV OR, if no IV access, 1 mg Glucagon IM. Recheck BG in 30 minutes. May repeat juice, dextrose or glucagon once per episode For BG less than 50: 240 mL Juice or Regular (not diet) soda OR 25 grams (50 mL) Dextrose 50% IV OR, if no IV access, 1 mg Glucagon IM. Recheck BG in 30 minutes. May repeat juice, dextrose, or glucagon once per episode. To avoid extravasation, push Dextrose 50% SLOWLY (3 mL over 1 minute) in a patent, running IV, preferably a central line. For persistent hypoglycemia, consider longer-acting treatment for the duration of the active insulin., Routine glucagon (human recombinant) injection SolR 1 mg(Linked Group 3) 1 mg, Intramuscular, EVERY 1 HOUR PRN, Starting on Ava 06/29/17 at 1956, Until Mon06/30/17 at 1427, Low blood sugar, For BG 50-70: 120 mL Juice or Regular (not diet) soda OR 12.5 gram (25 mL) Dextrose 50% IV OR, if no IV access, 1 mg Glucagon IM. Recheck BG in 30 minutes. May repeat juice, dextrose or glucagon once per episode For BG less than 50: 240 mL Juice or Regular (not diet) soda OR 25 grams (50 mL) Dextrose 50% IV OR, if no IV access, 1 mg Glucagon IM. Recheck BG in 30 minutes. May repeat juice, dextrose, or glucagon once per episode. To avoid extravasation, push Dextrose 50% SLOWLY (3 mL over 1 minute) in a patent, running IV, preferably a central line. For persistent hypoglycemia, consider longer-acting treatment for the duration of the active insulin., Routine HYDROmorphone (DILAUDID) syringe 0.2-0.4 mg (CANCELED) 0.2-0.4 mg, Intravenous, EVERY 5 MIN PRN, Pain, Starting on Ava 06/29/17 at 1734, Until Ava 06/29/17 at 1934, For moderate pain (4-6) give: 0.2 mg every 5 minute prn For severe pain (7-10) give: 0.4 mg every 5 minutes prn Maximum dose: 4 mg per hour Hold for respiratory rate less than 10 per minute., PACU Recovery 1807 (Given - Provider: Emilie Arias RN)1812 (Given - Provider: Emilie Arias RN)1817 (Given - Provider: Emilie Arias RN)183 (Given - Provider: Emilie Arias RN)1859 (Given - Provider: Emilie Arias RN) lidocaine (XYLOCAINE) 10 mg/mL (1 %) injection 3 mg 3 mg (0.3 mL), Subcutaneous, ONCE PRN, 1 dose, Starting on Ava 06/29/17 at 1956, Until Mon06/30/17 at 1427, for discomfort with PIV insertion, Recovery (Recovery-Hospital Unit), Routine lidocaine-EPINEPHrine 1 %-1:200,000 injection (CANCELED) ONCE PRN, Starting on Ava 06/29/17 at 1631, Until Mon06/30/17 at 1427, Intra-Operative (Intra-Procedure), Routine 1631 (Given - Provider: Chetan Lund MD) ondansetron (ZOFRAN) injection 4 mg(Linked Group 4) 4 mg, Intravenous, EVERY 8 HOURS PRN, Starting on Ava 06/29/17 at 1956, Until Mon06/30/17 at 1427, Nausea, May repeat times one in 30 minutes if ineffective. If multiple antiemetics are ordered, use ondanstron first, Recovery (Recovery-Hospital Unit) ondansetron (ZOFRAN) tablet 4 mg(Linked Group 4) 4 mg, Oral, EVERY 8 HOURS PRN, Starting on Ava 06/29/17 at 1956, Until Mon06/30/17 at 1427, Nausea, Vomiting, If multiple antiemetics are ordered, use ondansetron first. PO Preferred. If patient unable to take PO, may give IV if ordered. May repeat times one in 45 minutes if ineffective., Recovery (Recovery-Hospital Unit), Routine oxyCODONE (ROXICODONE) immediate release tablet 10 mg 10 mg, Oral, EVERY 4 HOURS PRN, Starting on Ava 06/29/17 at 1813, Until Mon06/30/17 at 1427, Pain, severe pain 8-10, Routine 2202 (Given - Provider: Lilian Haley RN) 0156 (Given - Provider: Lilian Haley RN)0625 (Given - Provider: Lilian Haley RN)1113 (Given - Provider: Destiny Moody RN) oxyCODONE (ROXICODONE) immediate release tablet 5 mg 5 mg, Oral, EVERY 4 HOURS PRN, Starting on Mon06/29/17 at 1813, Until Mon06/30/17 at 1427, Pain, moderate pain 4-7, Routine promethazine (PHENERGAN) injection 12.5 mg (CANCELED) 12.5 mg, Intravenous, EVERY 30 MIN PRN, Nausea, Starting on Mon06/29/17 at 1734, 2 doses, Until Mon06/29/17 at 1934, VESICANT - Dilute with a minimum of 10 mL saline. LARGE VEIN only. Inject over 10 minutes into the farthest port of a running IV infusion. Remain with the patient and STOP infusion immediately if patient reports burning. Avoid extravasation. If multiple antiemetics are ordered, use ondansetron first and if ineffective use prochlorperazine second and if ineffective use promethazine., PACU Recovery 185 (Given - Provider: Emilie Arias RN) sodium chloride 0.9 % flush 5-20 mL 5-20 mL, Intravenous, EVERY 1 MIN PRN, Starting on Mon06/29/17 at 1956, Until Mon06/30/17 at 1427, flush, Flush pertains to all indwelling lines. Flush per protocol found in the job aid using the link provided on this medication record., Recovery (Recovery-Hospital Unit), Routine Linked Groups Order Group 1: POCT Fingerstick Glucose (CANCELED) Routine, EVERY 4 HOURS, First occurrence on Mon06/29/17 at 1999, Until Specified, Consider choosing EVERY 4 HOURS as frequency for: - Type 1 Diabetes - At least 24 hours after coming off an insulin drip - At least 24 hours after admission for DKA - Hypoglycemia unawareness - Patients who are otherwise unstable Select the same frequency for the correction bolus insulin order And insulin lispro (humaLOG) VIAL injection 1-4 UnitsJump to med 1-4 Units, Subcutaneous, EVERY 4 HOURS SCHEDULED, First dose on Mon06/29/17 at 1999, Until Discontinued, CORRECTION BOLUS Sensitive to insulin lean patient or total daily dose of all insulin needed to achieve glycemic control less than 30 units BG 140 - 160 Give 1 unit BG 161 - 200 Give 2 units BG 201 - 240 Give 3 units BG greater than 240, give 4 units and recheck BG in 2 hours. If less than 240 after two hours, give no insulin and resume prior schedule. If BG remains greater than 240, repeat 4 units (no more than three times) & call for new basal insulin orders. DO NOT hold if NPO, unless specifically told to do so., Routine Group 2: lidocaine (LIDODERM) 5 % patch 2 patchJump to med 2 patch, Transdermal, NIGHTLY, First dose on Mon06/29/17 at 2300, Until Discontinued, Apply patch(es) for 12 hours, and then remove for 12 hours For b/l foot pain., Routine And Patch VerificationJump to med Transdermal, 2 TIMES DAILY, First dose on Mon06/30/17 at 0900, Until Discontinued, Verify lidocaine 5 %(700 mg/patch) patch. And lidocaine (LIDODERM) patch REMOVALJump to med Transdermal, DAILY, First dose on Mon06/30/17 at 0900, Until Discontinued, Remove lidocaine 5 %(700 mg/patch) patch Group 3: dextrose 50% IV syringe 25-50 mLJump to med 25-50 mL (12.5-25 g), Intravenous, EVERY 1 HOUR PRN, Starting on Mon06/29/17 at 1956, Until Mon06/30/17 at 1427, Low blood sugar, For BG 50-70: 120 mL Juice or Regular (not diet) soda OR 12.5 gram (25 mL) Dextrose 50% IV OR, if no IV access, 1 mg Glucagon IM. Recheck BG in 30 minutes. May repeat juice, dextrose or glucagon once per episode For BG less than 50: 240 mL Juice or Regular (not diet) soda OR 25 grams (50 mL) Dextrose 50% IV OR, if no IV access, 1 mg Glucagon IM. Recheck BG in 30 minutes. May repeat juice, dextrose, or glucagon once per episode. To avoid extravasation, push Dextrose 50% SLOWLY (3 mL over 1 minute) in a patent, running IV, preferably a central line. For persistent hypoglycemia, consider longer-acting treatment for the duration of the active insulin., Routine Or glucagon (human recombinant) injection SolR 1 mgJump to med 1 mg, Intramuscular, EVERY 1 HOUR PRN, Starting on Mon06/29/17 at 1956, Until Mon06/30/17 at 1427, Low blood sugar, For BG 50-70: 120 mL Juice or Regular (not diet) soda OR 12.5 gram (25 mL) Dextrose 50% IV OR, if no IV access, 1 mg Glucagon IM. Recheck BG in 30 minutes. May repeat juice, dextrose or glucagon once per episode For BG less than 50: 240 mL Juice or Regular (not diet) soda OR 25 grams (50 mL) Dextrose 50% IV OR, if no IV access, 1 mg Glucagon IM. Recheck BG in 30 minutes. May repeat juice, dextrose, or glucagon once per episode. To avoid extravasation, push Dextrose 50% SLOWLY (3 mL over 1 minute) in a patent, running IV, preferably a central line. For persistent hypoglycemia, consider longer-acting treatment for the duration of the active insulin., Routine Group 4: ondansetron (ZOFRAN) tablet 4 mgJump to med 4 mg, Oral, EVERY 8 HOURS PRN, Starting on Ava 06/29/17 at 195, Until Mon06/30/17 at 1427, Nausea, Vomiting, If multiple antiemetics are ordered, use ondansetron first. PO Preferred. If patient unable to take PO, may give IV if ordered. May repeat times one in 45 minutes if ineffective., Recovery (Recovery-Hospital Unit), Routine Or ondansetron (ZOFRAN) injection 4 mgJump to med 4 mg, Intravenous, EVERY 8 HOURS PRN, Starting on Ava 06/29/17 at 195, Until Mon06/30/17 at 1427, Nausea, May repeat times one in 30 minutes if ineffective. If multiple antiemetics are ordered, use ondanstron first, Recovery (Recovery- Hospital Unit) documented in this encounter Care Teams Cyber Policy And Strategy Planner Relationship Specialty Start Date End Date Nanda Read MD [facility] [address] [place] [address] PCP - General 09/14/10 06/06/18 documented as of this encounter
--- OUTSIDE RECORDS SUMMARY | 2024-05-15 11:10 | XMS_ITS | Encounter Summary ---
Author Organization [facility] [place] [address] Care Team Providers Care Freezing Room Worker Name Role Phone MunozRuth jerome Lilibeth JUAREZ Primary Care Provider + Reason for Visit * Reason Comments Medication Refill Encounter Details Date Type Department Care Team (Late st Contact Info) Description 05/04/2018 Refill [place] [address] Cathy Dillon APRN [facility] [place] [address] Status post bariatric surgery; Intestinal malabsorption, unspecified [...] AM EDT TH Visit (TeleHealth) [place] [address] Wyatt Higgins MD [facility] [place] [address] documented as of this encounter Visit Diagnoses Diagnosis Status post bariatric surgery Bariatric surgery status Intestinal malabsorption, unspecified type documented in this encounter Care Teams Freezing Room Worker Relationship Specialty Start Date End Date Ruth Munoz, BONE DENSITY TECHNICIAN [address] [place] [address] PCP - General Family Medicine 02/05/19 documented as of this encounter
--- OUTSIDE RECORDS SUMMARY | 2024-05-15 11:10 | XMS_ITS | Encounter Summary ---
[place] [address] Care Team Providers Care Data Examination Clerk Name Role Phone Nanda Read MD Primary Care Provider [phone] Encounter Details Date Type Department Care Team (Latest Contact Info) Description 02/12/2018 9:00 AM EDT Laboratory Appointment Lab [place] [address] Type 2 diabetes, controlled, with neuropathy; Other iron deficiency anemia; Vitamin D deficiency; Disorder of iron metabolism; Status post bariatric [...] EDT TH Visit (TeleHealth) [place] [address] Wyatt Briscoe MD [facility] [place] [address] documented as of this encounter Procedures Procedure Name Priority Date/Time Associated Diagnosis Comments HEMOGRAM Routine 02/12/2018 8:33 AM EDT Type 2 diabetes, controlled, with neuropathy Other iron deficiency anemia Vitamin D deficiency DIFFERENTIAL, AUTOMATED Routine 02/12/2018 8:33 AM EDT Type 2 diabetes, controlled, with neuropathy Other iron deficiency anemia Vitamin D deficiency VITAMIN B1, WHOLE BLOOD Routine 02/12/2018 8:33 AM EDT Disorder of iron metabolism Status post bariatric surgery Intestinal malabsorption, unspecified type IRON AND TIBC Routine 02/12/2018 8:33 AM EDT Type 2 diabetes, controlled, with neuropathy Other iron deficiency anemia Vitamin D deficiency VITAMIN D, 25-HYDROXY Routine 02/12/2018 8:33 AM EDT Type 2 diabetes, controlled, with neuropathy Other iron deficiency anemia Vitamin D deficiency CBC (WITH DIFF) Routine 02/12/2018 8:33 AM EDT Type 2 diabetes, controlled, with neuropathy Other iron deficiency anemia Vitamin D deficiency HEMOGLOBIN A1C Routine 02/12/2018 8:33 AM EDT Type 2 diabetes, controlled, with neuropathy Other iron deficiency anemia Vitamin D deficiency FOLATE, SERUM Routine 02/12/2018 8:33 AM EDT Disorder of iron metabolism Status post bariatric surgery Intestinal malabsorption, unspecified type FERRITIN Routine 02/12/2018 8:33 AM EDT Disorder of iron metabolism Status post bariatric surgery Intestinal malabsorption, unspecified type VITAMIN B12 Routine 02/12/2018 8:33 AM EDT Type 2 diabetes, controlled, with neuropathy Other iron deficiency anemia Vitamin D deficiency BASIC METABOLIC PANEL (NON-FASTING) Routine 02/12/2018 8:33 AM EDT Type 2 diabetes, controlled, with neuropathy Other iron deficiency anemia Vitamin D deficiency U ALBUMIN/CRE RATIO STAT 02/12/2018 8 :29 AM EDT Type 2 diabetes, controlled, with neuropathy Other iron deficiency anemia Vitamin D deficiency documented in this encounter Results * Differential, Automated (02/12/2018 8:33 AM EDT) Neutrophils % 61.0 % [facility] Neutr Abs (ANC) 5.82 1.70 - 6.10 x10(3)/[facility] Lymphocytes % 31.2 % [facility] Lymphocytes Abs 3.0 0.9 - 3.2 x10(3)/[facility] Monocytes % 5.5 % [facility] Monocyte Abs 0.5 0.3 - 0.9 x10(3)/[facility] Eosinophils % 1.2 % [facility] Eosinophils Abs 0.1 0.0 - 0.4 x10(3)/[facility] Basophils % 0.7 % [facility] Basophils Abs 0.1 0.0 - 0.1 x10(3)/[facility] Immature Gran % 0.40 % [facility] Comment: Immature granulocytes(IG's)percentage and absolute count will include metamyelocytes, myelocytes, and promyelocytes. Blood smears from CBCs yielding IG's will be scanned manually for concordance. If this scan disagrees with the automated IG or if promyelocytes are noted, a manual differential will be performed. Zahra Gran Abs 0.04 0.00 - 0.04 x10(3)/[facility] Blood specimen (specimen) 02/12/2018 8:33 AM EDT 02/12/2018 8:39 AM EDT Narrative Resulting Agency Comment Spec In Lab Judith Reinoso MD HEMATOLOGY [place] [address] * (ABNORMAL) Hemogram (02/12/2018 8:33 AM EDT) Pathologist [facility] WBC 9.5 4.0 - 9.5 x10(3)/[facility] RBC 4.74 4.00 - 5.21 x10(6)/[facility] Hemoglobin 13.0 11.7 - 15.5 gm/dL [facility] Hematocrit 41.3 35.7 - 45.8 % [facility] MCV 87.1 82.6 - 94.4 fL [facility] MCH 27.4 27.1 - 32.0 pg [facility] MCHC 31.5(L) 31.7 - 35.0 gm/dL [facility] Platelets 237 145 - 357 x10(3)/[facility] RDWSD 40.9 37.0 - 46.0 [facility] RDWCV 12.7 11.5 - 14.1 % [facility] MPV 10.8 7.6 - 12.9 [facility] nRBC % Auto 0.0 % [facility] nRBC Abs Auto 0.000 0.000 - 0.000 x10(3)/[facility] Blood specimen (specimen) 02/12/2018 8:33 AM EDT 02/12/2018 8:39 AM EDT Narrative Resulting Agency Comment Spec In Lab Judith Reinoso MD [place] [address] * Folate, serum (02/12/2018 8:33 AM EDT) Pathologist [facility] Folate Lvl >20.0 4.8 - 24.2 ng/mL [facility] Blood specimen (specimen) 02/12/2018 8:33 AM EDT 02/12/2018 8:39 AM EDT Narrative Resulting Agency Comment Spec In Lab Cathy Dillon APRN CHEMISTRY ORDERAB LES Performing Organization Address [facility] Co de Phone Number [facility] [place] [address] * (ABNORMAL) Vitamin B1, whole blood (02/12/2018 8:33 AM EDT) [facility] Signature Vit B1 Lvl WB 207(H) 70 - 180 nmol/L [facility] Comment: ADDITIONAL INFORMATION This test was developed and its performance characteristics determined by [facility] in a manner consistent with CLIA requirements. This test has not been cleared or approved by the U.S. Food and Drug Administration. Test Performed by: [facility] - [facility] [address] [place] [id number] Blood specimen (specimen) 02/12/2018 8:33 AM EDT 02/12/2018 9:06 AM EDT Narrative Resulting Agency Comment Spec In Lab Cathy Dillon APRN CHEMISTRY ORDERAB LES Performing Organization Address [facility] de Phone Number [facility] [place] [address] * (ABNORMAL) Ferritin (02/12/2018 8:33 AM EDT) [facility] Ferritin 25(L) 30 - 400 ng/mL [facility] Comment: Pediatric reference ranges not verified at [facility], interpret with caution. Reference ranges for females greater than 50 years of age approach values for men, i.e., 30-400 ng/mL. Blood specimen (specimen) 02/12/2018 8:33 AM EDT 02/12/2018 8:39 AM EDT Narrative Resulting Agency Comment Spec In Lab Cathy Dillon APRN CHEMISTRY ORDERAB LES Performing Organization Address [facility] Co de Phone Number [facility] [place] [address] * Vitamin B12 (02/12/2018 8:33 AM EDT) [facility] Vitamin B-12 543 232 - 1,245 pg/mL [facility] Comment: Please note: Effective 09/20/2017, the reference interval and the lower limit of detection for Vitamin B12 have been updated due to a new reagent formulation. Blood specimen (specimen) 02/12/2018 8:33 AM EDT 02/12/2018 8:39 AM EDT Narrative Resulting Agency Comment Spec In Lab Judith Reinoso MD CHEMISTRY ORDERAB LES Performing Organization Address [facility] Co de Phone Number [facility] [place] [address] * Iron and TIBC (02/12/2018 8:33 AM EDT) [facility] Iron 79 30 - 150 mcg/dL [facility] TIBC 322 250 - 450 mcg/dL [facility] Iron Saturation 25 20 - 50 % [facility] Blood specimen (specimen) 02/12/2018 8:33 AM EDT 02/12/2018 8:39 AM EDT Narrative Resulting Agency Comment Spec In Lab Judith Reinoso MD CHEMISTRY ORDERAB LES Performing Organization Address [facility] Co de Phone Number [facility] [place] [address] * (ABNORMAL) Basic Metabolic Panel (non-fasting) (02/12/2018 8:33 AM EDT) [facility] Glucose Lvl 212(H) 65 - 199 mg/dL [facility] Comment:Diabetes: >=200 mg/d L plus symptoms BUN 12 8 - 18 mg/dL [facility] Creatinine 0.55(L) 0.70 - 1.20 mg/dL [facility] Sodium 141 135 - 145 mmol/L [facility] Potassium 4.4 3.5 - 5.0 mmol/L [facility] Comment: Please note: ??Patients with WBC >100,000 may have falsely elevated Potassium levels. ??For accurate Potassium quantification in these patients send serum separator tube (gold top) for subsequent determinations. ??Contact the Clinical Chemistry Laboratory if there are any questions. Chloride 104 98 - 107 mmol/L [facility] CO2 28 22 - 31 mmol/L [facility] Anion Gap 9 5 - 15 mmol/L [facility] Calcium 9.2 8.5 - 10.5 mg/dL [facility] Estimated GFR >60 >=60 [facility] Comment: The reported eGFR should be multiplied by 1.2 for patients. The MDRD is not an appropriate measure of renal function for patients with body mass extremes or in patients with acute kidney failure. http://[employer]/DHnkdep http://[employer]/DHMCnkf Blood specimen (specimen) 02/12/2018 8:33 AM EDT 02/12/2018 8:39 AM EDT Narrative Resulting Agency Comment Spec In Lab Judith Reinoso MD CHEMISTRY ORDERAB LES [facility] [place] [address] * (ABNORMAL) Hemoglobin A1c (02/12/2018 8:33 AM EDT) Hemoglobin A1C 7.5(H) 4.3 - 5.6 % [facility] [...] 1, S67-74 Est Avg Gluc 169 mg/dL [facility] Comment: eAG equivalents for HbA1c [...] into estimated average glucose values. ??Diabetes Care 2008:31(8):3725-7949. Blood specimen (specimen) 02/12/2018 8:33 AM EDT 02/12/2018 8:39 AM EDT Narrative Resulting Agency Comment Spec In Lab Judith Reinoso MD CHEMISTRY ORDERAB LES [facility] [place] [address] * Vitamin D, 25-Hydroxy (02/12/2018 8:33 AM EDT) 25-OH Vit D Total 58 30 - 100 ng/mL [facility] Comment: Deficient <10 ng/mL Insufficient 10 to 29 ng/mL Sufficient 30 to 100 ng/mL Potential Intoxication >100 ng/mL According to the [place] National Osteoporosis Foundation, Vitamin D concentrations >30 ng/mL are sufficient to protect bone health. ??The National Kidney Foundation has similarly stated that patients with Vitamin D concentrations <30ng/mL should be considered to be insufficient or deficient. http://Designlab.StudyMax/nkf-guidelines http://Designlab.StudyMax/nejm-VitD The [employer] i[employer] Vitamin D Immunoassay detects both 25-OH Vitamin D2 and 25-OH Vitamin D3, but only a total Vitamin D concentration is reported. Blood specimen (specimen) 02/12/2018 8:33 AM EDT 02/12/2018 10:22 AM EDT Narrative Resulting Agency Comment Spec In Lab Judith Reinoso MD CHEMISTRY ORDERAB LES [facility] [place] [id number] * U Albumin/Cre Ratio (02/12/2018 8:29 AM EDT) Alb/Cr Ratio, Random Not Calculated 0 - 29 mcg/mg Cr [facility] Comment: Reference Ranges: <30 [...] 2, 357? 362 U Albumin Conc, Random <3.0 mg/L [facility] U Creatinine 55 mg/dL [facility] Urine specimen (specimen) 02/12/2018 8:29 AM EDT 02/12/2018 8:32 AM EDT Narrative Resulting Agency Comment Spec In Lab Judith Reinoso MD URINE ORDERABLES [facility] [place] [address] documented in this encounter Visit Diagnoses Diagnosis Type 2 diabetes, controlled, with neuropathy Type II or unspecified type diabetes mellitus with neurological manifestations, not stated as uncontrolled Other iron deficiency anemia Vitamin D deficiency Unspecified vitamin D deficiency Disorder of iron metabolism Other disorders of iron metabolism Status post bariatric surgery Bariatric surgery status Intestinal malabsorption, unspecified type documented in this encounter Care Teams Data Examination Clerk Relationship Specialty Start Date End Date Nanda Read MD [facility] [address] [place] [address] PCP - General 09/14/10 06/06/18 documented as of this encounter
--- OUTSIDE RECORDS SUMMARY | 2024-05-15 11:10 | XMS_ITS | Encounter Summary ---
Author Organization [facility] [place] [address] Care Team Providers Care Looping Inspector Name Role Phone Nanda Read MD Primary Care Provider [phone] Reason for Visit * Reason Comments Medication Refill Encounter Details Date Type Department Care Team (Late st Contact Info) Description 11/20/2017 Ref[place] [address] Judith Reinoso MD [facility] [place] [address] Social History Tobacco Use Types Packs/Day Years [...] AM EDT TH Visit (TeleHealth) [place] [id number] Wyatt Higgins MD [facility] [place] [place] [address] documented as of this encounter Visit Diagnoses Not on filedocumented in this encounter Care Teams Looping Inspector Relationship Specialty Start Date End Date Nanda Read MD [facility] [address] [place] [address] PCP - General 09/14/10 06/06/18 documented as of this encounter
--- OUTSIDE RECORDS SUMMARY | 2024-05-15 11:10 | XMS_ITS | Encounter Summary ---
[place] [address] Care Team Providers Care Museum Assistant Name Role Phone Patrick Clement MD Primary Care Provider [phone] Encounter Details Date Type Department Care Team (Late st Contact Info) Description 02/04/2019 Orders [place] [address] Cathy Dillon, DIPLOMATIC INTERPRETER [facility] [place] [address] Disorder of iron metabolism; Status post bariatric [...] AM EDT TH Visit (TeleHealth) [place] [address] Wyatt Higgins MD [facility] [place] [address] documented as of this encounter Results * Ferritin (02/05/2019 10:26 AM EDT) Pathologist [facility] Ferritin 46 30 - 400 ng/mL [facility] Comment: Pediatric reference ranges not verified at [facility], interpret with caution. Reference ranges for females greater than 50 years of age approach values for men, i.e., 30-400 ng/mL. Blood specimen (specimen) 02/05/2019 10:26 AM EDT 02/05/2019 10:36 AM EDT Narrative Resulting Agency Comment Spec In Lab Cathy Dillon DIPLOMATIC INTERPRETER CHEMISTRY ORDERAB LES [facility] [place] [address] * (ABNORMAL) Hemogram (02/05/2019 10:26 AM EDT) [facility] WBC 11.5(H) 4.0 - 9.5 x10(3)/[facility] RBC 5.17 4.00 - 5.21 x10(6)/[facility] Hemoglobin 14.0 11.7 - 15.5 gm/dL [facility] Hematocrit 44.5 35.7 - 45.8 % [facility] MCV 86.1 82.6 - 94.4 fL [facility] MCH 27.1 27.1 - 32.0 pg [facility] MCHC 31.5(L) 31.7 - 35.0 gm/dL [facility] Platelets 251 145 - 357 x10(3)/[facility]AT[facility] RDWSD 40.6 37.0 - 46.0 fL [facility] RDWCV 13.0 11.5 - 14.1 % [facility] MPV 10.5 7.6 - 12.9 fL [facility] nRBC % Auto 0.0 % [facility] nRBC Abs Auto 0.000 0.000 - 0.000 x10(3)/mcL [facility] Blood specimen (specimen) 02/05/2019 10:26 AM EDT 02/05/2019 10:36 AM EDT Narrative Resulting Agency Comment Spec In Lab Cathy Dillon DIPLOMATIC INTERPRETER HEMATOLOGY ORDERA BLES [facility] [place] [address] documented in this encounter Visit Diagnoses Diagnosis Disorder of iron metabolism Other disorders of iron metabolism Status post bariatric surgery Bariatric surgery status Intestinal malabsorption, unspecified type Iron deficiency Iron deficiency anemia, unspecified documented in this encounter Care Teams Museum Assistant Relationship Specialty Start Date End Date Patrick Clement MD PCP - General Family Medicine 06/07/18 02/04/19 documented as of this encounter
--- OUTSIDE RECORDS SUMMARY | 2024-05-15 11:10 | XMS_ITS | Encounter Summary ---
Author Organization [facility] [place] [address] Care Team Providers Care Human Anatomy Teacher Name Role Phone Patrick Clement MD Primary Care Provider [phone] Encounter Details Date Type Department Care Team (Late st Contact Info) Description 12/10/2018 Orders [place] [phone] Cathy Dillon APRN [facility] [place] [address] Social History Tobacco Use Types Packs/Day Years [...] AM EDT TH Visit (TeleHealth) [place] [phone] Wyatt Higgins MD [facility] [place] [address] documented as of this encounter Visit Diagnoses Not on filedocumented in this encounter Care Teams Human Anatomy Teacher Relationship Specialty Start Date End Date Patrick Clement MD PCP - General Family Medicine 06/07/18 02/04/19 documented as of this encounter
--- OUTSIDE RECORDS SUMMARY | 2024-05-15 11:10 | XMS_ITS | Encounter Summary ---
Author Organization [facility] [place] [address] Care Team Providers Care Funds Development Director Name Role Phone Nanda Read MD Primary Care Provider [phone] Reason for Visit * Auth/Cert Specialty Diagnoses / Procedures Referred By Patricio monsivais Referred To Contact Diagnoses Localized adiposity Abdominal pannus Procedures PRO EXCISE EXCESS SKIN TISSUE, ABDOMEN ABDOMINOPLASTY (WRVU 17.11) Referral ID Status Reason Start Date Expiration Date Visits Re quested Visits Authorized [id number] 1 1 Encounter Details Date Type Department Care Team (Latest Contact Info) Description 06/29/2017 12:24 PM EDT - 06/30/2017 12:22 PM EDT Hospital Encounter [place] [address] Chetan Lund MD [facility] [place] [address] Discharge Disposition: Home Social History Tobacco Use [...] Sign Reading Time Taken Comments Blood Pressure 100/55 06/30/2017 6:42 AM EDT Pulse 88 06/30/2017 6:42 AM EDT Temperature 37.2 ??C (99 ??F) 06/30/2017 6:42 AM EDT Respiratory Rate 17 06/30/2017 6:42 AM EDT Oxygen Saturation 100% 06/30/2017 6:42 AM EDT Inhaled Oxygen Concentration - - Weight 77.1 kg (169 lb 15.6 oz) 06/29/2017 1:31 PM EDT Height - - Body Mass Index 30.11 06/19/2017 4:22 PM EDT documented in this encounter Discharge Summaries * Lorie Ovalle PA - 06/30/2017 10:53 AM EDT PLASTIC SURGERY DISCHARGE SUMMARY Patient Name: Martha Benoit Patient Age, : 51 y.o. 1965 Language, race, ethnicity: Danish, White, Not nor Date of Admission: 06/29/2017 [...] Hospital Course: Patient was admitted electively to [facility] via the same day [...] 17.11) performed by Chetan Lund MD at [facility] MAIN OR ??? PRO LAP GASTRIC BYPASS/BRADY-EN-Y N/A 01/04/2016 @LAPAROSCOPIC GASTROPLASTY, performed by Jose Mai MD at [facility] OR ??? PRO UPPER GI ENDOSCOPY, BIOPSY 11/16/2011 EGD WITH BIOPSY performed by ALISA RICHARDS at [facility] ENDOSCOPY ??? PRO UPPER GI ENDOSCOPY, DIAGNOSTIC N/A 11/04/2015 EGD, UPPER GI ENDOSCOPY performed by Kisha Doss MD at [facility] ENDOSCOPY ??? PRO UPPER GI ENDOSCOPY, DIAGNOSTIC N/A 01/04/2016 ENDOSCOPY, UPPER GI, DIAGNOSTIC, WITH OR WITHOUT SPECIMENS performed by Jose Mai MD at [facility] OR ??? TUBAL LIGATION ??? UPPER GI ENDOSCOPY, EXAM 11/16/2011 UPPER GI ENDOSCOPY performed by ALISA RICHARDS at [facility] ENDOSCOPY Procedures: 06/29/2017 Surgeon(s) and Role: * Chetan Lund MD - Primary * Gildardo Pedraza MD * Powelson, Darin A, MD: Procedure(s): ABDOMINOPLASTY (WRVU 17.11) MODIFIER PANNICULECTOMY [...] 1 capsule by mouth every 3 days. [id number] Units Quantity: 30 capsule Refills: 3 gabapentin [...] nurses, you may call the clinic at [phone] and schedule an appointment to have your [...] to minimize scarring. Do not use any fvrk-drw-dsulfso lotions, solutions, or herbal preparations on your [...] entire course of antibiotics, please consult a front end driver or your primary care provider. Please be [...] called in to our prescription line at [phone]. Narcotic renewals may be requested from 8am-4pm [...] office hours: Monday - Monday 8am-5pm call [phone]. On weekends or after hours call [phone] and ask the cover mat machine operator to page the plastic surgery resident correspondent. Post Op Plan: - Please follow-up in plastic surgery clinic as scheduled for wound check, drain removal and activity modification update Future Appointments Date Time Provider Department Center 07/11/2017 11:20 AM Christine Whitley APRN [facility] 08/10/2017 9:30 AM ZULY THREE L Lab 3L [facility] 08/10/2017 10:30 AM Judith Reinoso MD [facility] 08/10/2017 11:30 AM Yancy Pennington DO Leb Neuro [facility] General Instructions None Future Appointments and Orders Future Appointments Provider Department Dept Phone 07/11/2017 11:20 AM Christine Whitley APRN Plastic Surgery at [place] [phone] 08/10/2017 9:30 AM LAB, THREE L Lab 3L [facility] [phone] 08/10/2017 10:30 AM Judith Reinoso MD Endocrinology at [place] [phone] 08/10/2017 11:30 AM Yancy Pennington DO Neurology at [place] [phone] Discharge Medications: Your Medications New Medications Dose [...] 1 capsule by mouth every 3 days. [id number] Units Quantity: 30 capsule Refills: 3 gabapentin [...] AM Christine Whitley APRN Plastic Surgery at [place] [phone] 08/10/2017 9:30 AM LAB, THREE L Lab 3L [facility] [phone] 08/10/2017 10:30 AM Judith Reinoso MD Endocrinology at [place] [phone] 08/10/2017 11:30 AM Yancy Pennington DO Neurology at [place] [phone] Future Appointments Date Time Provider Department Center 07/11/2017 11:20 AM Christine Whitley APRN [facility] 4 [facility] 08/10/2017 9:30 AM LAB, THREE L Lab 3L [facility] 08/10/2017 10:30 AM Judith Reinoso MD [facility] 08/10/2017 11:30 AM Yancy Pennington DO Leb Neuro [facility] Primary Care Provider: Nanda Read MD [phone] VNA: No discharge procedures on file. General Instructions None Your care was managed by the Plastic SurgeryTeam at [facility]. If you haveany questions or concerns, please feel free to contact us. Provider Contact Information: Plastic Surgery Clinic: [facility] (after business hours): documented [...] nurses, you may call the clinic at [phone] and schedule an appointment to have your [...] to minimize scarring. Do not use any polg-rqi-wypzpjc lotions, solutions, or herbal preparations on your [...] entire course of antibiotics, please consult a front end driver or your primary care provider. Please be [...] called in to our prescription line at [phone]. Narcotic renewals may be requested from 8am-4pm [...] office hours: Monday - Monday 8am-5pm call [phone]. On weekends or after hours call [phone] and ask the cover mat machine operator to page the plastic surgery resident correspondent. Post Op Plan: - Please follow-up in plastic surgery clinic as scheduled for wound check, drain removal and activity modification update Future Appointments Date Time Provider Department Center 07/11/2017 11:20 AM Christine Whitley APRN [facility] 4 [facility] 08/10/2017 9:30 AM LAB[facility] 08/10/2017 10:30 AM Judith Reinoso MD [facility] 08/10/2017 11:30 AM Yancy Pennington DO [facility] * Attachments The following attachments cannot be sent through Care Everywhere. * SURGICAL DRAIN CARE ([place]) documented in this encounter Medications at Time [...] breathing at this time-later given an Incent. Cody. with post-op teaching. Pt. States her pain [...] - hemodynamically stable Lucho Mart MD Pager: [phone] documented in this encounter H&P Notes * [...] GASTROPLASTY, performed by Jose Mai MD at [facility] MAIN OR ??? PRO UPPER GI ENDOSCOPY, BIOPSY 11/16/2011 EGD WITH BIOPSY performed by ALISA RICHARDS at [facility] ENDOSCOPY ??? PRO UPPER GI ENDOSCOPY, DIAGNOSTIC N/A 11/04/2015 EGD, UPPER GI ENDOSCOPY performed by Kisha Dsos MD at [facility] ENDOSCOPY ??? PRO UPPER GI ENDOSCOPY, DIAGNOSTIC N/A 01/04/2016 ENDOSCOPY, UPPER GI, DIAGNOSTIC, WITH OR WITHOUT SPECIMENS performed by Jose Mai MD at [facility] MAIN OR ??? TUBAL LIGATION ??? UPPER GI ENDOSCOPY, EXAM 11/16/2011 UPPER GI ENDOSCOPY performed by ALSIA RICHARDS at [facility] ENDOSCOPY No Known Allergies No current facility-administered [...] (WRVU 17.11) MODIFIER PANNICULECTOMY Opioid PD[place] 04/27/2017 [place] Query Date 06/29/2017 [place] QUERY DATE: 06/29/17 Risk Assessment Category: Low Martha Benoit is getting a prescription opioid for [...] chart. Lorie Ovalle PA-C Plastic Surgery Pager [phone] documented in this encounter Miscellaneous Notes * Plan of Care - Lilian Haley, RN - 06/30/2017 10:46 AM EDT Problem: [...] Handling Outcome: Ongoing (Interventions Implemented as Appropriate) 06/30/17 0432 Pacheco Fall Risk History of Falling 0 [...] Assessment Outcome: Ongoing (Interventions Implemented as Appropriate) 06/30/17 0934 Discharge Needs Assessment Concerns Comments possible VNA for drain and wound assessment. Will need local Dr. primary to remove SANDRA's-pt. lives 4 hours away, up [place] Activity/Self Care Review of Systems Equipment Currently Used at Home walker, rolling Living Environment Transportation Available family or friend will provide * Op Note - Chetan Lund MD - 06/29/2017 5:33 PM EDT [facility] Operative Note Patient Name: Martha Benoit : [id number] MR#: [id number] Case Date: 06/29/2017 Surgeon: Surgeon(s) and Role: [...] combination of hemostatic clips and electrocautery. A #19-Mosotho Isacc style drains were inserted and brought [...] Operative Note Patient Name: Martha Benoit : [id number] MR#: [id number] Case Date: 06/29/2017 Surgeon: Surgeon(s) and Role: [...] AM EDT TH Visit (TeleHealth) [place] [address] Wyatt Higgins MD [facility] [place] [address] documented as of this encounter Procedures Procedure [...] POC Glucose 169 65 - 199 mg/dL [facility] Comment: Supplemental ranges: <140 mg/dL before meals <180 mg/dL all other times of the day Blood specimen (specimen) 06/30/2017 9:22 AM EDT 06/30/2017 9:22 AM EDT Chetan Lund MD POINT OF CARE TEST O RDERABLES Performing Organization Address City/State/[facility] Co de Phone Number [facility] [place] [address] * POCT Glucose (06/30/2017 6:30 AM EDT) POC Glucose 179 65 - 199 mg/dL [facility] Comment: Supplemental ranges: <140 mg/dL before meals <180 mg/dL all other times of the day Blood specimen (specimen) 06/30/2017 6:30 AM EDT 06/30/2017 6:30 AM EDT Chetan Lund MD POINT OF CARE TEST O SHAYAN Performing Organization Address [facility] Co de Phone Number [facility] [place] [address] * (ABNORMAL) POCT Glucose (06/30/2017 4:38 AM EDT) POC Glucose 291(H) 65 - 199 mg/dL [facility] Comment: Supplemental ranges: <140 mg/dL before meals <180 mg/dL all other times of the day Blood specimen (specimen) 06/30/2017 4:38 AM EDT 06/30/2017 4:38 AM EDT Chetan Lund MD POINT OF CARE TEST O SHAYAN Performing Organization Address [facility] Co de Phone Number [facility] [place] [address] * (ABNORMAL) POCT Glucose (06/30/2017 2:30 AM EDT) POC Glucose 243(H) 65 - 199 mg/dL [facility] Comment: Supplemental ranges: <140 mg/dL before meals <180 mg/dL all other times of the day Blood specimen (specimen) 06/30/2017 2:30 AM EDT 06/30/2017 2:30 AM EDT Chetan Lund MD POINT OF CARE TEST Eve DOWNEY Performing Organization Address [facility] Co de Phone Number [facility] [place] [address] * (ABNORMAL) POCT Glucose (06/29/2017 11:48 PM EDT) POC Glucose 386(H) 65 - 199 mg/dL [facility] Comment: Supplemental ranges: <140 mg/dL before meals <180 mg/dL all other times of the day Blood specimen (specimen) 06/29/2017 11:48 PM EDT 06/29/2017 11:48 PM EDT Chetan Lund MD POINT OF CARE TEST O RDERAGONZALO Performing Organization Address City/[facility]/ZIP Co de Phone Number [facility] [place] [address] * POCT Glucose (06/29/2017 8:22 PM EDT) POC Glucose 187 65 - 199 mg/dL [facility] Comment: Supplemental ranges: <140 mg/dL before meals <180 mg/dL all other times of the day Blood specimen (specimen) 06/29/2017 8:22 PM EDT 06/29/2017 8:22 PM EDT Chetan Lund MD POINT OF CARE TEST O CHARLESERAGONZALO Performing Organization Address [facility] Co de Phone Number [facility] [place] [address] * POCT Glucose (06/29/2017 6:05 PM EDT) POC Glucose 159 65 - 199 mg/dL [facility] Comment: Supplemental ranges: <140 mg/dL before meals <180 mg/dL all other times of the day Blood specimen (specimen) 06/29/2017 6:05 PM EDT 06/29/2017 6:05 PM EDT Chetan Lund MD POINT OF CARE TEST O SHAYAN Performing Organization Address City/[facility]/ZIP Co de Phone Number [facility] [place] [address] * POCT Glucose (06/29/2017 1:49 PM EDT) POC Glucose 103 65 - 199 mg/dL [facility] Comment: Supplemental ranges: <140 mg/dL before meals <180 mg/dL all other times of the day Blood specimen (specimen) 06/29/2017 1:49 PM EDT 06/29/2017 1:49 PM EDT Chetan Lund MD POINT OF CARE TEST O SHAYAN [facility] [place] [address] * POCT HGB (06/29/2017) POC Hemoglobin 13.4 g/dL 06/29/2017 Chetan Lund MD POINT OF CARE TEST O SHAYAN documented in this encounter Visit Diagnoses Diagnosis Abdominal pannus Localized adiposity documented in this encounter Administered Medications Inactive Administered Medications - up to 3 most recent administrations Medication Order MAR Action Action Date Dose Rate Site acetaminophen (TYLENOL) tablet 1,000 mg 1,000 mg, Oral, ONCE, 1 dose, On Ava 06/29/17 at 1345, Administer with SIP of H2O only., Day of Surgery (Day of Procedure), Routine Given 06/29/2017 2:17 PM EDT 1,000 mg baclofen (LIORESAL) tablet 10 mg 10 mg, [...] EVERY 5 MIN PRN, Pain, Starting on Mon06/29/17 at 1734, Until Mon06/29/17 at 1934, For moderate pain (4-6) give: [...] Discontinued, Remove lidocaine 5 %(700 mg/patch) patch ondansetron (ZOFRAN) injection 4 mg 4 mg, [...] Ava 06/29/17 at 1734, 2 doses, Until Ava 06/29/17 at 1934, VESICANT - Dilute with a [...] Intravenous, 2 TIMES DAILY, First dose on Ava 06/29/17 at 2100, Until Discontinued, Recovery (Recovery-Hospital Unit), [...] 2033 (Given - Provider: Lilian Haley RN) 015 (Given - Provider: Lilian Haley RN)0900 (Given - Provider: Destiny Moody, BRENDAN) ceFAZolin (ANCEF) 2g in dextrose 5% 100 mL 2 g, Intravenous, EVERY 8 HOURS, 2 doses, First dose on Mon06/29/17 at 1830, Last dose on Mon06/30/17 at [...] Haley RN)0230 (Canceled Entry - Provider: Lilian Hlaey RN - Reason: See comment - Comment: given prior) docusate sodium (COLACE) capsule 100 mg 100 mg, Oral, 2 TIMES DAILY, First dose on Ava 06/29/17 at 2100, Until Discontinued, Routine 2099 (Not Given - Provider: Lilian Haley RN [...] on Mon06/30/17 at 0730, Until Discontinued, Routine 0639 (Given - Provid er: Lilian Haley RN) [...] Reason: See comment - Comment: pt. refused, DrEdvin notified.)0440 (Given - Provider: Lilian Haley RN)0931 (Given - Provider: Destiny Moody, BRENDAN)1200 (Due) Lactobacillus (BACID) tablet 1 tablet 1 tablet, Oral, DAILY, First dose on Mon06/29/17 at 2045, Until Discontinued, Routine 0036 (Given - Provid er: Lilian Haley RN)0900 (Given - Provider: Destiny Moody, BRENDAN) lidocaine (LIDODERM) 5 % patch 2 patch(Linked [...] Intravenous, 2 TIMES DAILY, First dose on Ava 06/29/17 at 2100, Until Discontinued, Recovery (Recovery-Hospital Unit), [...] Unit) 1828 (New Bag - Provider: Emilie Arias RN) 425 (Stopped - Provider: Lilian Haley, RN)426 (New Bag - Provider: Lilian Haley, RN) PRN Medication Order 06/28/2017 06/29/2017 06/30/2017 bacitracin [...] EVERY 5 MIN PRN, Pain, Starting on Mon06/29/17 at 1734, Until Mon06/29/17 at 1934, For moderate pain (4-6) give: 0.2 mg every 5 minute prn For severe pain (7-10) give: 0.4 mg every 5 minutes prn Maximum dose: 4 mg per hour Hold for respiratory rate less than 10 per minute., PACU Recovery 1807 (Given - Provider: Emilie Arias RN)1812 (Given - Provider: Emilie Arias RN)181 (Given - Provider: Emilie Arias RN)183 (Given - Provider: Emilie Arias, BRENDAN)1859 (Given - Provider: Emilie Arias, BRENDAN) lidocaine (XYLOCAINE) 10 mg/mL (1 %) injection 3 mg 3 mg (0.3 mL), Subcutaneous, ONCE PRN, 1 dose, Starting on Mon06/29/17 at 1956, Until Mon06/30/17 at 1427, for discomfort with PIV insertion, Recovery (Recovery-Hospital Unit), Routine lidocaine-EPINEPHrine 1 %-1:200,000 injection (CANCELED) ONCE PRN, Starting on Mon06/29/17 at 1631, [...] Ava 06/29/17 at 1734, 2 doses, Until Ava 06/29/17 at 1934, VESICANT - Dilute with a [...] Routine, EVERY 4 HOURS, First occurrence on Ava 06/29/17 at 1999, Until Specified, Consider choosing EVERY [...] 2 patch, Transdermal, NIGHTLY, First dose on Ava 06/29/17 at 2300, Until Discontinued, Apply patch(es) for [...] Unit) documented in this encounter Care Teams Funds Development Director Relationship Specialty Start Date End Date Nanda Read MD [facility] [address] [place] [address] PCP - General 09/14/10 06/06/18 documented as of this encounter
--- OUTSIDE RECORDS SUMMARY | 2024-05-15 11:10 | XMS_ITS | Encounter Summary ---
Author Organization [facility] [place] [address] Care Team Providers Care Car Chaser Name Role Phone Patrick Clement MD Primary Care Provider [phone] Reason for Visit * Reason Comments Follow-up Skin Check Encounter Details Date Type Department Care Team (Late st Contact Info) Description 08/14/2018 4:30 PM EDT Office Visit Dermatology at [address] [place] [address] Galdino Gilliland MD [address] [place] [address] [place] [address] Psoriasis Social History Tobacco Use Types Packs/Day [...] Progress Notes * Galdino Gilliland MD - 08/14/2018 4:30 PM EDT Problem: 1. Psoriasis 2. History of significant psoriasis and son and granddaughter 3. Status post 2 months of methotrexate Martha follows up and unfortunately the methotrexate taking religiously 50 mg a week has not clearedthe psoriasis on her legs. Physical examination reveals palpable squamous papules and small plaques widely over calves and thighs some on the abdomen and back some on the arms but still with significant involvement on her legs. It is still very active and very papulosquamous despite 2 months of of methotrexate Assessment and plan: Psoriasis, not responding to methotrexate 1. Discussed options of Biologics which patient is willing to try. Her son and granddaughter have both utilized Biologics with success. 2. Would recommend Humira 40 mg using the prefilled syringe inject contents of 2 syringes on day 1,inject contents of one syringe on day 8, and then one syringe thereafter every 2 weeks. 3. Prescription given for both the starter pack and for ongoing maintenance dosing. 4. Patient is reluctant to return for repeat visit during the winter months. The drive from [facility] scares her particular with her limited mobility. She walks with a walker. 5. Asked patient to contact me with her progress in 1 month and return to clinic in late December or January for repeat check. 6. Take last dose of methotrexate then discontinue also discontinue Wallace cath at the same time. 7. Recommend using a good emollient such as CeraVe cream for dry flaking of skin. CC: Patrick Clement MD documented in this encounter Plan of Treatment Upcoming Encounters Date Type Department Care Team (Late Contact Info) Description 02/19/2025 9:00 AM EDT TH Visit (TeleHealth) [place] [address] Wyatt Higgins MD [facility] [address] documented as of this encounter Visit Diagnoses Diagnosis Psoriasis Other psoriasis documented in this encounter Care Teams Car Chaser Relationship Specialty Start Date End Date Patrick Clement MD PCP - General Family Medicine 06/07/18 02/04/19 documented as of this encounter
--- OUTSIDE RECORDS SUMMARY | 2024-05-15 11:10 | XMS_ITS | Encounter Summary ---
[place] [address] Care Team Providers Care Logistics Clerk Name Role Phone Patrick Clement MD Primary Care Provider [phone] Encounter Details Date Type Department Care Team (Late st Contact Info) Description 07/31/2018 Telephone [place] [address] Taylor Vance, CHARLES Social History Tobacco Use Types Packs/Day Years [...] encounter Miscellaneous Notes * Telephone Encounter - Taylor Vance - 07/31/2018 9:34 AM EDT Bariatric Surgery Program Phone call to patient after receiving a message that she had questions about her vitamins. Patient reports her pharmacy gave her Flintstones with iron multivitamin but it is not a complete multivitamin and does not contain all of the vitamin and minerals as the regular Flintstones. She was wondering if Cathy Dillon could give her a prescription for the Flintstones Complete. She also needs another prescription for her omeprazole and wants it sent to [facility]. Informed patient that [facility] out this week but will get back to her next week. Patient is receptive to this. documented in this encounter Plan of Treatment Upcoming Encounters Date Type Department Care Team (Late st Contact Info) Description 02/19/2025 9:00 AM EDT TH Visit (TeleHealth) [place] [address] [facility] [place] [address] documented as of this encounter Visit Diagnoses Not on filedocumented in this encounter Care Teams Logistics Clerk Relationship Specialty Start Date End Date Patrick Clement MD PCP - General Family Medicine 06/07/18 02/04/19 documented as of this encounter
--- OUTSIDE RECORDS SUMMARY | 2024-05-15 11:10 | XMS_ITS | Encounter Summary ---
Author Organization [facility] [place] [address] Care Team Providers Care Game Engineer Name Role Phone Nanda Read MD Primary Care Provider [phone] Reason for Visit * Reason Onset Date Comments Medication Refill 08/11/2017 Encounter Details Date Type Department Care Team (Late st Contact Info) Description 08/11/2017 Refill Endocrinology [place] [address] Judith Reinoso MD [facility] [place] [address] Social History Tobacco Use Types Packs/Day Years [...] Encounter - Tracy Tavarez LPN - 08/11/2017 2:44 PM EDT Per patient she is taking glipizide ER10 twice daily not once daily as per office note 08/10/17 documented in this encounter Plan of Treatment Upcoming Encounters Date Type Department Care Team (Late st Contact Info) Description 02/19/2025 9:00 AM EDT TH Visit (TeleHealth) [place] [address] Wyatt Higgins MD [facility] [place] [address] documented as of this encounter Visit Diagnoses Not on filedocumented in this encounter Care Teams Game Engineer Relationship Specialty Start Date End Date Nanda Read MD [address] [place] [address] PCP - General 09/14/10 06/06/18 documented as of this encounter
--- OUTSIDE RECORDS SUMMARY | 2024-05-15 11:10 | XMS_ITS | Encounter Summary ---
[place] [address] Care Team Providers Care Internal Medicine Veterinary Technician Name Role Phone Nanda Read MD Primary Care Provider [phone] Encounter Details Date Type Department Care Team (Latest Contact Info) Description 08/10/2017 9:30 AM EDT Laboratory Appointment Lab [address] [place] [address] Disorder of iron metabolism; Status post bariatric surgery; Intestinal malabsorption, unspecified type; Iron deficiency; Type 2 diabetes, controlled, with neuropathy; Vitamin D deficiency; Iron deficiency anemia due to chronic blood loss Social History Tobacco Use Types Packs/Day Years [...] TH Visit (TeleHealth) [place] [address] Wyatt Higgins MD [facility] [place] [address] documented as of this encounter Procedures Procedure Name Priority Date/Time Associated Diagnosis Comments HEMOGRAM Routine 08/10/2017 9:30 AM EDT Disorder of iron metabolism Status post bariatric surgery Intestinal malabsorption, unspecified type Iron deficiency IRON AND TIBC Routine 08/10/2017 9:30 AM EDT Type 2 diabetes, controlled, with neuropathy Vitamin D deficiency Iron deficiency anemia due to chronic blood loss VITAMIN D, 25-HYDROXY Routine 08/10/2017 9:30 AM EDT Type 2 diabetes, controlled, with neuropathy Vitamin D deficiency Iron deficiency anemia due to chronic blood loss HEMOGLOBIN A1C Routine 08/10/2017 9:30 AM EDT Type 2 diabetes, controlled, with neuropathy Vitamin D deficiency Iron deficiency anemia due to chronic blood loss FERRITIN Routine 08/10/2017 9:30 AM EDT Disorder of iron metabolism Status post bariatric surgery Intestinal malabsorption, unspecified type Iron deficiency documented in this encounter Results * (ABNORMAL) Iron and TIBC (08/10/2017 9:30 AM EDT) Iron 56 30 - 150 mcg/dL [facility] TIBC 311 250 - 450 mcg/dL [facility] Iron Saturation 18(L) 20 - 50 % [facility] Blood specimen (specimen) 08/10/2017 9:30 AM EDT 08/10/2017 9:37 AM EDT Narrative Resulting Agency Comment Spec In Lab Judith Reinoso MD CHEMISTRY ORDERAB LES [facility] [place] [address] * (ABNORMAL) Hemoglobin A1c (08/10/2017 9:30 AM EDT) Hemoglobin A1C 6.8(H) 4.3 - 5.6 % [facility] Comment: Reference Range: 4.3 - 5.6% 5.7 - 6.4% - Increased Risk of Developing Diabetes Mellitus >=6.5% - Consistent with diagnosis of Diabetes Mellitus In the absence of hyperglycemia (i.e. plasma glucose > 200 mg/dL) or classic symptoms of hyperglycemia a repeat measurement of HbA1c should be performed on a separate sample to confirm the diagnosis. Diagnosis and Classification of Diabetes Mellitus, Diabetes Care 2013; 36: Suppl. 1, S67-74 Est Avg Gluc 148 mg/dL [facility] Comment: eAG equivalents for [...] into estimated average glucose values. ??Diabetes Care 2008:31(8):5630-6510. Blood specimen (specimen) 08/10/2017 9:30 AM EDT 08/10/2017 9:37 AM EDT Narrative Resulting Agency Comment Spec In Lab Judith Reinoso MD CHEMISTRY ORDERAB LES Performing Organization Address [facility] Co de Phone Number [facility] [place] [address] * Vitamin D, 25-Hydroxy (08/10/2017 9:30 AM EDT) 25-OH Vit D Total 70 30 - 100 ng/mL [facility] Comment: Deficient <10 ng/mL Insufficient 10 to 29 ng/mL Sufficient 30 to 100 ng/mL Potential Intoxication >100 ng/mL According to the [place] National Osteoporosis Foundation, Vitamin D concentrations >30 ng/mL are sufficient to protect bone health. ??The National Kidney Foundation has similarly stated that patients with Vitamin D concentrations <30ng/mL should be considered to be insufficient or deficient. http://[employer]/nkf-guidelines http://[employer]/nejm-VitD The [employer] Vitamin D Immunoassay detects both 25-OH Vitamin D2 and 25-OH Vitamin D3, but only a total Vitamin D concentration is reported. Blood specimen (specimen) 08/10/2017 9:30 AM EDT 08/10/2017 11:40 AM EDT Narrative Resulting Agency Comment Spec In Lab Judith Reinoso MD CHEMISTRY ORDERAB LES Performing Organization Address [facility] Co de Phone Number [facility] [place] [address] * (ABNORMAL) Ferritin (08/10/2017 9:30 AM EDT) Ferritin 25(L) 30 - 400 ng/mL [facility] Comment: Pediatric reference ranges not verified at [facility], interpret with caution. Reference ranges for females greater than 50 years of age approach values for men, i.e., 30-400 ng/mL. Blood specimen (specimen) 08/10/2017 9:30 AM EDT 08/10/2017 9:37 AM EDT Narrative Resulting Agency Comment Spec In Lab Cathy Dillon APRN CHEMISTRY ORDERAB LES Performing Organization Address City/[facility]/ZIP Co de Phone Number [facility] [place] [address] * (ABNORMAL) Hemogram (08/10/2017 9:30 AM EDT) WBC 9.8(H) 4.0 - 9.5 x10(3)/[facility] RBC 4.64 4.00 - 5.21 x10(6)/[facility] Hemoglobin 12.9 11.7 - 15.5 gm/dL [facility] Hematocrit 39.2 35.7 - 45.8 % [facility] MCV 84.5 82.6 - 94.4 [facility]ORY MCH 27.8 27.1 - 32.0 pg [facility] MCHC 32.9 31.7 - 35.0 gm/dL [facility] Platelets 256 145 - 357 x10(3)/[facility] LAB[facility]ORY RDWSD 39.9 37.0 - 46.0 [facility] RDWCV 13.0 11.5 - 14.1 % [facility] MPV 11.3 7.6 - 12.9 [facility] nRBC % Auto 0.0 % [facility] nRBC Abs Auto 0.000 0.000 - 0.000 x10(3)/[facility] Blood specimen (specimen) 08/10/2017 9:30 AM EDT 08/10/2017 9:37 AM EDT Narrative Resulting Agency Comment Spec In Lab Cathy Dillon APRN HEMATOLOGY ORDERA BLES [facility] [place] [address] documented in this encounter Visit Diagnoses Diagnosis Disorder of iron metabolism Other disorders of iron metabolism Status post bariatric surgery Bariatric surgery status Intestinal malabsorption, unspecified type Iron deficiency Iron deficiency anemia, unspecified Type 2 diabetes, controlled, with neuropathy Type II or unspecified type diabetes mellitus with neurological manifestations, not stated as uncontrolled Vitamin D deficiency Unspecified vitamin D deficiency Iron deficiency anemia due to chronic blood loss Iron deficiency anemia secondary to blood loss (chronic) documented in this encounter Care Teams Internal Medicine Veterinary Technician Relationship Specialty Start Date End Date Nanda Read MD [address] [place] [address] PCP - General 09/14/10 06/06/18 documented as of this encounter
--- OUTSIDE RECORDS SUMMARY | 2024-05-15 11:10 | XMS_ITS | Encounter Summary ---
Author [facility] [place] [address] Care Team Providers Care Program Admin Name Role Phone Patrick Clement MD Primary Care Provider Reason for Visit * Reason Comments Psoriasis Encounter Details Date Type Department Care Team (Late st Contact Info) Description 06/07/2018 8:15 AM EDT Office Visit Dermatology at [address] [place] [address] Galdino Gilliland MD [address] [place] [address] [place] [address] Psoriasis Social History Tobacco Use Types Packs/Day [...] Progress Notes * Galdino Gilliland MD - 06/07/2018 8:15 AM EDT Problem: Psoriasis, guttate, flaring Martha follows up after last seeing me in 2014. She had some cutaneous surgery this December and it became infected. After that she noticed slow recurrence and then a flaring of her psoriasis which she had not had for many years. She recalls having been on methotrexate in the past for bad flares and then with of remission of her psoriasis. She has been trying some triamcinolone cream but it has not been beneficial Physical examination reveals guttate papulosquamous papules and small plaques widely over her calves or thighs on the abdomen and back and some on her arms. Is consistent with guttate psoriasis Assessment plan: Guttate psoriasis 1. Begin methotrexate taking 6 of the 2.5 mg tablets p.o.weekly for 2 months and return to clinic. This represents a 15 mg dose. Dispense #30 with 1 refill 2. Begin also folic acid 1 mg p.o. daily every day except the day that she takes her methotrexate. Dispense #90 for a 3 month supply with 1 refill. 3. Hopefully at that time will be able to taper the patient down and off of the methotrexate as I hope she will have achieved remission by then. Cc: Patrick Clement MD documented in this encounter Plan of Treatment Upcoming Encounters Date Type Department Care Team (Late st Contact Info) Description 02/19/2025 9:00 AM EDT TH Visit (TeleHealth) [place] [address] Wyatt Higgins MD [facility] [place] [address] documented as of this encounter Visit Diagnoses Diagnosis Psoriasis Other psoriasis documented in this encounter Care Teams Program Admin Relationship Specialty Start Date End Date Patrick Clement MD PCP - General Family Medicine 06/07/18 02/04/19 documented as of this encounter
--- OUTSIDE RECORDS SUMMARY | 2024-05-15 11:10 | XMS_ITS | Encounter Summary ---
Author Organization [facility] [place] [address] Care Team Providers Care Parachute Taper Name Role Phone Patrick Clement MD Primary Care Provider [phone] Reason for Visit * Reason Onset Date Comments Other 12/10/2018 Encounter Details Date Type Department Care Team (Late st Contact Info) Description 12/10/2018 Telephone [place] [address] Cathy Dillon, [facility] [place] [address] Other Social History Tobacco Use Types Packs/Day [...] * Telephone Encounter - Cathy Dillon - 12/10/2018 3:57 PM EST Bariatric Surgery Program I called Martha to let her know that I prescribed the flintstone complete multivtamin for her, not the flinstone multivitamin with iron. documented in this encounter Plan of Treatment Upcoming Encounters Date Type Department Care Team (Late st Contact Info) Description 02/19/2025 9:00 AM EDT TH Visit (TeleHealth) [place] [address] Wyatt Higgins MD [facility] [place] [address] documented as of this encounter Visit Diagnoses Not on filedocumented in this encounter Care Teams Parachute Taper Relationship Specialty Start Date End Date Patrick Clement MD PCP - General Family Medicine 06/07/18 02/04/19 documented as of this encounter
--- OUTSIDE RECORDS SUMMARY | 2024-05-15 11:10 | XMS_ITS | Encounter Summary ---
[facility] [place] [address] Care Team Providers Care Assembler Motor Vehicle Name Role Phone Nanda Read MD Primary Care Provider [phone] Encounter Details Date Type Department Care Team (Late st Contact Info) Description 09/26/2017 9:30 AM EST [place] [address] [facility] [address] NEUROLOGY [place] [address] [facility] [address] NEUROLOGY [place] [address] Polyneuropathy Social History Tobacco Use Types Packs/Day [...] Sign Reading Time Taken Comments Blood Pressure 118/61 09/26/2017 8:45 AM EST Pulse 88 09/26/2017 8:45 AM EST Temperature - - Respiratory Rate - - Oxygen Saturation - - Inhaled Oxygen Concentration - - Weight 74.8 kg (165 lb) 09/26/2017 8:45 AM EST Height 160 cm (5' 3) 09/26/2017 8:45 AM EST rep orted Body Mass Index 29.23 09/26/2017 8:45 AM EST documented in this encounter Progress Notes * Yancy Pennington, DO - 09/26/2017 9:30 AM EST Neurology Clinic Note Interval History: Since last visit, patient feels she has become a little bit weaker in her hands and feet. She continues to use a walker. She states she has had physical therapy in the past without significant improvement. She had genetic testing for hereditary neuropathy at last visit which was unrevealing. She admits to continued numbness and tingling in her hands and feet, which she states she is able to tolerate well as it has been going on for so many years. She has no further complaints. 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 Patient reports 10 years ago she began to have weakness in her left foot which progressed to involve numbness and tingling in her feet and legs. She states progressively she had further weakness of both feet and is now using a walker. She tried using b/l AFO braces for foot drop, but she states she feels thismade things worse. ??She states 6 months ago she developed numbness and tingling in her hands, but denies weakness in the hands. She denies radicular neck pain or radicular back pain. She has localized back pain at the sight of a lipoma. ? She has had Vit B12 and TSH, serum paraneoplastic panel checked in the past which were unremarkable. Her most recent A1C was 6.5%. She states she had a sister with similar symptoms and checking for ahereditary cause was discussed with her in the past, but joint decision was made not to pursue it as management would not change. She had EMG/NCS in 2008, 2009 and 2011 all of which revealed a severe generalized polyneuropathy PMHx/PSHx: Patient Active Problem List Diagnosis Code [...] Abdominal pannus E65 ??? Surgery follow-up Z09 Allergies: No Known Allergies Meds: ??? ferrous sulfate 325 mg (65 mg iron) Tablet ??? glipiZIDE (GLUCOTROL XL) 10 mg Tablet Extended Rel 24 hr ??? oxyCODONE-acetaminophen (PERCOCET) 10-325 mg Tablet ??? fluconazole (DIFLUCAN) 200 mg Tablet ??? INVOKANA 100 mg Tablet ??? insulin aspart protamine-insulin aspart 70/30 (NOVOLOG MIX 70-30 FLEXPEN) Insulin Pen ??? BIOTIN ORAL ??? omeprazole (PRILOSEC) 20 mg Capsule, Delayed Release(E.C.) ??? ergocalciferol (ERGOCALCIFEROL) 50,000 unit Capsule ??? gabapentin (NEURONTIN) 300 mg Capsule ??? pediatric multivitamin with iron Tablet, Chewable ??? lidocaine (LIDODERM) 5 %(700 mg/patch) ??? baclofen (LIORESAL) 10 mg tablet ??? metFORMIN (GLUCOPHAGE) 500 mg tablet SocHx: Social History Social History ??? Marital status: [...] ??? Not on file Social History Narrative FamHx: Family History Problem Relation Age of Onset ??? Diabetes Mother ??? Diabetes Father ??? Diabetes Other ??? High Cholesterol Other ??? Hypertension Other ??? Stroke Other ??? Obesity Other ??? Psoriasis Other ??? * Other congenital malformation in her son/kidney stone Sister had severe neuropathy diagnosed in her 30's, she is now Physical exam Most Recent Vitals: 09/26/17 0845 BP: 118/61 Pulse: 88 Head: NC/AT Eyes: no scleral icterus Neck: supple, ROM intact Nose: nasal turbinates intact Extremities; no pallor, no edema Skin: no erythema or bruising Joints: no swelling or erythema Neuro: MS: AAO x 3, communicating appropriately CN: PERRL, EOMI, VFF, V1-V3 sensation intact, no facial asymmetry Motor: Deltoids R 5/5 L 5/5 Biceps R 5/5 L 5/5 Triceps R 5/5 L 5/5 Wrist extension R 5/5 L 5/5 Wrist flexion R 5/5 L 5/5 Finger abduction R 3/5 L 3/5 APB R 3/5 L 3/5 Thenar and hypothenar significant atrophy bilaterally ?? Hip flexion R 4/5 L 5/5 Hip extension R 5/5 L 5/5 Knee extension R 5/5 L 5/5 Knee flexion R 5/5 L 5/5 Dorsiflexion R 0/5 L 0/5 Plantar flexion R 2/5 L 2/5 Foot inversion R 2/5 L 0/5 Foot eversion R 2/5 L 0/5 ?? Reflexes: Absent throughout Toes equivocal ?? Sensory: decreased to PP up to mid thigh on Left and up to knee on right, decreased to pinprick in ulnar distribution from bilateral 4th and 5th digits to wrist bilaterally, decreased position sense and vibration and the toes. Vibration decreased at the ankles and intact at the knees ?? Gait: walks with a walker Prior studies: She has had Vit B12 and TSH, serum paraneoplastic panel checked in the past which were unremarkable. Her most recent A1C was 6.8%. She had EMG/NCS in 2008, 2009 and 2010 all of which revealed a severe generalized polyneuropathy ? EMG/NCS was performed 06/05/17. There was electrodiagnostic evidence of a severe length dependent sensorimotor axonal neuropathy. 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 Hereditary neuropathy still remains a possibility even though genetic testing unrevealing 1) Severe length dependent sensorimotor axonal neuropathy Counseled patient on results of genetic testing. Genetic testing is unrevealing at this time and heterozygosity of SPG11 gene is of unclear clinical significance. She would not like to revisit PT at this time as it has not helped in the past Will follow patient to evaluate progression of weakness Patient advised to follow up in 6 months - 1 year Case was discussed with and patient seen with Dr. Kyle Pennington DO Clinical Neurophysiology Fellow #[id number] * Julio Cesar Wright MD - 09/26/2017 9:30 AM EST .... I saw and evaluated the patient with Dr. Pennington. I have reviewed the resident's history during the visit and I agree with the details as written. My neurological examination confirms the resident's findings. The assessment and plan were formulated in discussion with me at the time of the visit and I agree with them as documented. Discussed at length with patient about diagnostic considerations. Explained diagnosis and treatment. Patient understands and accepts our plan. .Julio Cesar Wright MD documented in this encounter Plan of Treatment Upcoming Encounters Date Type Department Care Team (Late st Contact Info) Description 02/19/2025 9:00 AM EDT TH Visit (TeleHealth) [place] [address] [facility] NEUROLOGY [place] [address] documented as of this encounter Visit Diagnoses Diagnosis Polyneuropathy Unspecified hereditary and idiopathic peripheral neuropathy documented in this encounter Care Teams Assembler Motor Vehicle Relationship Specialty Start Date End Date Nanda Read MD [facility] [address] [place] [address] PCP - General 09/14/10 06/06/18 documented as of this encounter
--- OUTSIDE RECORDS SUMMARY | 2024-05-15 11:10 | XMS_ITS | Encounter Summary ---
[place] [address] Care Team Providers Care Ramp Jockey Name Role Phone Patrick Clement MD Primary Care Provider [phone] Reason for Visit * Reason Onset Date Comments Prior Authorization 08/15/2018 Kiley Encounter Details Date Type Department Care Team (Late st Contact Info) Description 08/15/2018 [place] [address] Mateus Castro Prior Authorization (Kiley) Social History Tobacco Use Types Packs/Day Years [...] encounter Miscellaneous Notes * Telephone Encounter - Mateus Castro - 08/17/2018 9:47 AM EDT [facility], Prior Authorization Approval APPROVAL DATES: 08/15/2018-09/15/2018 (Initial dose) and 09/15/2018-11/15/2018 (Maintenance) SPECIFIC INS REQUIREMENT: PA approved for both Initial and maintenance, PA# [id number] (Initial) and [id number] (maintenance), can be filled at Pharmacy, $3 copay. CASE/REFERENCE # [id number] (Initial) and [id number] (Maintenance) APPROVAL NOTIFICATION RECEIVED VIA: Fax over approval forms * Telephone Encounter - Mateus Castro - 08/15/2018 2:59 PM EDT [facility], Medication Prior Authorization Patient: Martha Benoit Patient : 1965 Patient Address: [address] [address] (home) Medication: Humira Pen-PS/UV Starter 40mg/0.8mL Pen Kit Subscriber Insurance: [place] Physician: Galdino Gilliland Sent Via: FAX Kessler: N/A Ref/Case/PA#: N/A Medication Strength Frequency Requested: Humira Pen-PS/UV Starter 40mg/0.8mL Pen Kit; Inject the contents of 2 pens (80mg) Subcutaneously on day 1, then inject the contents of 1 pen (40mg) on day 8, then inject the contents of 1 pen (40mg) every 14 days. Qty/Day Supply: 4 syringe/30 days New Start: Yes Diagnosis & ICD-10 Code: L40.9 documented in this encounter Plan of Treatment Upcoming Encounters Date Type Department Care Team (Late st Contact Info) Description 02/19/2025 9:00 AM EDT TH Visit (TeleHealth) [place] [address] Wyatt Higgins MD [facility] [place] [address] documented as of this encounter Visit Diagnoses Not on filedocumented in this encounter Care Teams Ramp Jockey Relationship Specialty Start Date End Date Patrick Clement MD PCP - General Family Medicine 06/07/18 02/04/19 documented as of this encounter
--- OUTSIDE RECORDS SUMMARY | 2024-05-15 11:10 | XMS_ITS | Encounter Summary ---
Author Organization [facility] [place] [place] [address] Care Team Providers Care Electrical Controls Technician Name Role Phone Nanda Read MD Primary Care Provider Reason for Visit * Reason Comments Medication Refill Encounter Details Date Type Department Care Team (Late st Contact Info) Description 06/02/2018 [place] [phone] Judith Reinoso MD [facility] [place] [address] Social History Tobacco Use Types Packs/Day Years [...] AM EDT TH Visit (TeleHealth) [place] [phone] Wyatt Higgins MD [facility] [place] [address] documented as of this encounter Visit Diagnoses Not on filedocumented in this encounter Care Teams Electrical Controls Technician Relationship Specialty Start Date End Date Nanda Read MD [facility] [address] [place] [address] PCP - General 09/14/10 06/06/18 documented as of this encounter
--- OUTSIDE RECORDS SUMMARY | 2024-05-15 11:10 | XMS_ITS | Encounter Summary ---
[place] [address] Care Team Providers Care Fuel Management Handler Name Role Phone Nanda Read MD Primary Care Provider Reason for Visit * Reason Onset Date Comments Prior Authorization 01/19/2018 Encounter Details Date Type Department Care Team (Late st Contact Info) Description 01/19/2018 [place] [phone] Abby Stevens kettle chipper Social History Tobacco Use Types Packs/Day Years [...] encounter Miscellaneous Notes * Telephone Encounter - Abby Stevens RN - 01/19/2018 4:47 PM EDT Medication Prior Authorization Medication name/dose/directions: Invokana 100mg tablet Rationale for request: Help with weight loss and BG Health plan: [place] Authorizing patient registration representative name: Abby Faxed to health plan on: 01/19/18 Health plan decision: Approved Quantity approved: 90.0 90 Authorization number: [id number] Start date: 01/19/18 End date: 01/19/19 documented in this encounter Plan of Treatment Upcoming Encounters Date Type Department Care Team (Late st Contact Info) Description 02/19/2025 9:00 AM EDT TH Visit (TeleHealth) [place] [address] Wyatt Higgins MD [facility] [place] [address] documented as of this encounter Visit Diagnoses Not on filedocumented in this encounter Care Teams Fuel Management Handler Relationship Specialty Start Date End Date Nanda Read MD [facility] [[email or web address]] [address] [place] [address] PCP - General 09/14/10 06/06/18 documented as of this encounter
--- OUTSIDE RECORDS SUMMARY | 2024-05-15 11:10 | XMS_ITS | Encounter Summary ---
Author Organization [facility] [place] [address] Care Team Providers Care Clinical Support Tech Name Role Phone Patrick Clement MD Primary Care Provider Reason for Visit * Reason Comments Medication Refill Encounter Details Date Type Department Care Team (Late st Contact Info) Description 11/12/2018 Refill [place] [phone] Judith Reinoso MD [facility] [place] [address] Social History Tobacco Use Types Packs/Day Years [...] AM EDT TH Visit (TeleHealth) [place] [phone] Wyatt Higgins MD [facility] [place] [address] documented as of this encounter Visit Diagnoses Not on filedocumented in this encounter Care Teams Clinical Support Tech Relationship Specialty Start Date End Date Patrick Clement MD PCP - General Family Medicine 06/07/18 02/04/19 documented as of this encounter
--- OUTSIDE RECORDS SUMMARY | 2024-05-15 11:10 | XMS_ITS | Encounter Summary ---
[place] [address] Care Team Providers Care Rn Quality Name Role Phone Patrick Clement MD Primary Care Provider [phone] Reason for Visit * Reason Comments Patient Education Encounter Details Date Type Department Care Team (Late st Contact Info) Description 08/23/2018 Specialty [place] [address] Filemon Sheth RPH Social History Tobacco Use [...] Progress Notes * Filemon Sheth RPH - 08/23/2018 3:54 PM EDT Clinical Management Plan: Refill Specialty Pharmacy Consultation; Filemon Sheth RPH Comprehensive Medication Management (CMM) Martha Benoit MsEdvin Benoit is a 52 y.o. (1965) female who was called for an initial consult regarding her new medication, Humira. Patient declined consult, PHQ9 screening, as well as medication and allergy reconciliation. We will reach out to the patient in roughly one month to screen for early efficacy, tolerability, and adherence. The specialty pharmacy staff will follow up with the patient 5-7 days prior to next refill for reminder if needed. Filemon Sheth RPH 08/23/18 4:13 PM documented in this encounter Plan of Treatment Upcoming Encounters Date Type Department Care Team (Late st Contact Info) Description 02/19/2025 9:00 AM EDT TH Visit (TeleHealth) [place] [address] Wyatt Higgins MD [facility] [place] [address] documented as of this encounter Visit Diagnoses Not on filedocumented in this encounter Care Teams Rn Quality Relationship Specialty Start Date End Date Patrick Clement MD PCP - General Family Medicine 06/07/18 02/04/19 documented as of this encounter
--- OUTSIDE RECORDS SUMMARY | 2024-05-15 11:10 | XMS_ITS | Encounter Summary ---
[facility] [place] [address] Care Team Providers Care Teacher Physically Impaired Name Role Phone Nanda Read MD Primary Care Provider Reason for Visit * Reason Comments Follow-up S/P RNY gastric bypa ss Encounter Details Date Type Department Care Team (Late Contact Info) Description 02/12/2018 10:30 AM EDT Office [place] [address] Cathy Dillon, ASSISTANT IN NURSING [facility] [place] [address] Disorder of iron metabolism; Status post bariatric [...] this encounter Patient Instructions * Patient Instructions* Taylor Vance - 02/12/2018 10:30 AM EDT [facility] Admin coordinator Rosey: [phone] Dietitian: [phone] Surgeons/ nurse practitioner: [phone] Nurse line: [phone] Testing: in one year Next visit: 1 [address] same day as [address] Reinoso Routine visits are done at 4.8,12, 18 and 24 months after surgery, and yearly thereafter. Please call [phone] if you do not receive an appointment by 3-4 weeks prior to the expected visit. Medications: recommendations pending labwork. Vitamins: The following vitamins are recommended: ??? Multivitamins with minerals twice daily- needs to be an under 50 multivitamin that contains iron. No senior multivitamins. (Or read the serving size if taking a Bariatric specific multivitamin such as procare). ??? Vitamin B12 500 mcg by mouth once daily ??? Calcium citrate 600 mg with Vitamin D 400 units twice daily (600 mg in AM and 600 mg in PM- 2 pills twice a day) (or 1 chewable twice a day) ??? Iron with Vitamin C, 50-66 mg once daily (take iron with vitamin C 250 mg to help with absorption) only if you have regular periods, iron deficiency or anemia. Nutrition recommendations: Work on consuming protein at every meal and try to choose a high proteinsnack in the evening to help feel more satisfied and avoid multiple snacks at night. - Your Daily Goals: ?? 1,000-1,200 calories [...] of both cardio and strength training exercises. Alcohol: should be used sparingly, no more [...] surgery. Alcohol is not recommended until at least 6-12 months post surgery, and after goal weight has been achieved f non-prescribed drugs and treet drugs is unsafe Anti-inflammatory medications such as Advil, Aleve, Excedrin, Ibuprofen should be used sparingly after gastric bypass, since they increase the risk of ulcer. Call us: ??? If you have concerns. ??? If you have unexplained abdominal pain. ??? if you see blood in your stool or vomit blood ??? If you have prolonged vomiting Post Surgery Support Group: Our post surgery support group meets on the first Monday of every month from 1-2 PM at [facility] no registration required Nutrition and Activity apps- Baritastic, My Fitness Pal, Lose It, My Plate Internet resources: www.SUPR wwwInvictus Oncology wwwEpoch [email or web address]/blog [facility] facebook page: [email or web address] Books & Magazines: - Recipes for Life After Weight Loss Surgery by Ashli Wiseman - Shrink Yourself by Dr Stephen Dial - Eating Well - www.OneRiot - Cooking Light- [email or web address].[email or web address] documented in this encounter Progress Notes * Taylor Vance - 02/12/2018 10:30 AM EDT Bariatric Surgery Program Nutrition Progress Note Encounter Type: follow up SUBJECTIVE: Topics Discussed/Patient Concerns: ?? She had a panniculectomy in June. She was in a lot of pain after the surgery. ?? OBJECTIVE: Date of Bariatric Surgery: 01/04/16 Type of Bariatric Surgery: Laparoscopic Janeth-en-Y Gastric Bypass Weight History: Date Weight (lbs) HT BMI Comments Summer 2014 260# Highest Weight (pt reported) 07/01/14 249# 63 44.1 Initial program weight 11/03/15 247# 63 43.7 1st pre-op visit 01/04/16 249# EWL % 44.1 Surgery 03/09/16 216# 26.1% 38.2 2 months post-op 07/05/16 189# 48.7% 33.5 6 months post-op 04/06/17 177# 58.8% 31.4 15 months post-op 02/12/18 175# 60.5% 31 2 years post-op Goal weight: none, rough idea is 160-170#, doesn't really care about weight loss. Wants to improve diabetes, be off insulin, improve neuropathy, and save her feet. Predicted weight loss with surgery is an estimated 50-70% of excess body weight, which would be a goal weight between 172-193#. Social history: Has 8 grown children, 4 biological and 4 adopted. Took on nieces and nephews when her sister , has 12 kids in total. Lives with one daughter and one son (nephew) in the house, no pets. On disability. Son (who had surgery) is supportive of her getting bariatric surgery. Related medical history: Diabetes type 2- on insulin and Obesity Class III Vitamin/Mineral Supplements (reported by patient): Supplement Type Brand/Form Dosage/Amount Frequency Comments Multivitamin [place]'s chewable 1 Twice daily Calcium none Vitamin B12 none Iron rx ? dose weekly Can't do more, causes constipation W/o vit C Vitamin D3 rx 50,000 IU 2x/ week Food Allergies/Intolerances: lactose intolerant- milk, ice cream, cottage cheese Tracking Intake: None Daily Oral Intake: Breakfast Plain oatmeal made with water and adds little bit of 1 or 2% milk Or shredded wheat cereal with a tiny bit milk Or fruit bowl Or 2 clemetines AM Snack Lunch 1 chicken breast and peas PM Snack Dinner [place] chowder Or chop suey with 1 tbsp pasta and salad HS Snack Snacks at night, some nights 3 snacks a night- cucumber and corn nuts, and gummy candies or bite size snicker bar Protein/ grams per day: 30-40 grams Hydrating fluids- oz/ day: More than 8 cups water per day, sometimes orange CL Soda: none ETOH: none Caffeine: Very rarely, coffee maybe once every week or 2 Sweets: Candy at night, doesn't like cake or bread Meals per day: 3/ day ?? Feels full/satisfied after eating: Doesn't think about it ?? Feels hungry []never [x]sometimes- at nighttime []most of the time [] always ?? Drinks with meals: yes, drinks half of a water bottle throughout a meal ?? Practices portion control: yes ?? Spends at least 20 minutes eating each meal: yes ?? Has had dumping syndrome: none Foods/Symptoms: ?? In the past month, pt has vomited/regurgitated: none Exercise: none, she has been having trouble with her left foot from the way she walks. ASSESSMENT: Summary of Weight Loss: Patient's percent excess weight loss is 60.5% which is within the expected post- op bariatric surgery range. Weight has remained stable in the past year. Patient is doing well and has no dietary concerns, although her protein intake appears pretty low and complains of feeling hungry and snacking more at night. Recommend patient consume protein at every meal and a high protein snack in the evening t o help feel more satisfied and avoid multiple snacks at night. She is doing well meeting her fluid needs. She is not compliant with all supplements and recommend she start calcium citrate twice a dayand B12 once a day. She has not been active because she has been having some trouble with her foot. NUTRITION INTERVENTION & MONITORING: ?? Provided support/encouragement and reinforced importance of meeting nutritional goals. ?? Reviewed nutrition and vitamin and mineral supplement recommendations (see patient instructions). ?? Written recommendations provided. Patient agreed with these and verbalized adequate understanding. ?? Evaluation by nurse practitioner today. ?? Handouts provided: One Year and Beyond (revised 01/2014) and supplement card. * Cathy Dillon - 02/12/2018 10:30 AM EDT Reason for visit: follow up S/P laparoscopic Janeth-en-Y gastric bypass on 01/04/16 Complications summary: Early Prolonged hospital stay. Admitted to [facility] on 01/24/16 with nausea and vomiting, failure to progress diet. Transfer to [facility] [place] 01/25/[place] Late none Visits summary: Compliance [...] ca or B12 - 07/05/16 189 33.4 48.7 2 multi a day, no iron-intolerant. No calcium. B12 inj D 50K 1-2x wk Hg 14 Hct 43.5 ferritin 54 iron 57 sat 19% B12 416 Nl B1 fol CMP x ALP 105 D 32 PTH 56 prealbumin 23 A1c 7.4 C peptide 4.2 04/06/17 177 31.4 58 Multi w. Iron QD No calcium or B12 D 50 K 2x week 02/06: Hg 13.1 Hct 40.6 . Iron 62 isat 19% B12 448 . Nl cmp nl x ALP 105 A1c 7.6 02/12/18 60.5 Multi w. Iron QD No calcium or B12 D 50 K 2x week 02/12: Hg 13 Hct 41.3 ferritin 25 iron 79 sat 25% B12 543 Nl B1 folate CMP D 58 Screening/other: Date Evaluation Results 02/24/17 Primary care 11/04/15 EGD Normal esophagus. Erosive gastropathy. Findings unchanged from previous ??endoscopies. I don't think these non specific erosions should preclude bariatric surgery. Normal examined duodenum. Path: Endoscopic biopsy - Gastric antral gland mucosa with nonspecific reactive gastropathy and??focal intestinal metaplasia. No H. pylori-like microorganism is seen. 09/23/14 Colonoscopy 4 polyps ascending and descending colon, rectum- all tubular adenomas 03/24/15 Pap negative 2017 Mammogram Reports as normal - DEXA Problem List ??? Preoperative Class IV obesity BMI 43.7, S/P gastric bypass ??? Denies hypertension, prescribed lisinipril 2.5 mg , likely for renal protection: off lisinoprilpost surgery ??? Type 2 diabetes diagnosed in 1993, chronic poor control preoperatively untreated until 2005: improved post surgery, A1c is 7.5 today. Current treatment: Novolog 70-30- 10-15 units twice a day, glipizide ER 10 mg BID, metformin 500 mg BID and Invokana 100 mg QD. Off U 500 insulin and extenatide p ost surgery - preoperative treatment: exenatide, glipizide, U 500 insulin BID, Invokana, metformin - Complications: retinopathy, peripheral autonomic neuropathy, sees mailmaster for calluses, declines flu shot ??? GERD and hiatal hernia: Recently discontinued omeprazole 20 mg daily and developed intermittentmild heartburn ??? Hyperlipidemia treated with pravastatin ??? History of lower extremity edema, treated with lasix on 40 mg ~1 a week prior to surgery: resolved post surgery ??? Musculoskeletal issues: A. Chronic foot pain-s/p heel spur surgeries ??? Opiate dependence for chronic pain due to neuropathy, S/P Pain Clinic evaluation: continued requirement post-surgery ??? Diabetic retinopathy ??? Peripheral neuropathy-severe generalized: no improvement with weight loss ??? Acquired hypothyroidism ??? Vitamin D deficiency with PTH elevation ( with normal calcium on 11/03/15) preoperatively: resolved, current treatment with vitamin D 50,000 units twice weekly (managed by Dr. Reinoso) ??? Iron deficiency preoperatively: persists, ferritin is 25 today, is taking multi with iron ??? Low B12 level preoperatively: resolved, is not taking B12 and remanis interested in taking a supplement Iron deficiency: persists, taking iron just once a week due to constipation ??? Memory impairment, S/P evaluation by neurology [...] stopped after using pepper per her report A. History of multiple cystoscopies and stent placements, initially in 1987 ??? Seborrheic keratosis ??? History of tubular adenomas 2013 ??? History of chest pain A. Stress ECHO done on 08/15/07: no ischemic changes Past Surgical History Procedure Laterality Date ??? Laparoscopic Janeth en Y gastric bypass (Dr Mai) 01/02/2016 ??? Tubal ligation Bilateral 1987 ??? ESWL Left 1987 ??? ESWL Left 01/15/1995 ??? Cystoscopy and stent placement Left 04/03/2001, 08/26/2001, 10/31/2000 ??? Lithotripsy 12/26/2000 ??? LEEP 08/15/2009 ??? Colposcopy 04/08/2014 ??? Excision of heel spur Left 2004 ??? PRK for hyperopic astigmatism OU 2003 ??? Upper gi endoscopy, exam and biopsy 11/16/2011 UPPER GI ENDOSCOPY performed by ALISA RICHARDS at [facility] Allergies Allergen Reactions ??? Codeine Phosphate Nausea And Vomiting Medications 02/12/18 1122 Medication Sig Taking? ergocalciferol (VITAMIN D) 50,000 unit Capsule Take 1 capsule by mouth once a week. Yes glipiZIDE (GLUCOTROL XL) 10 mg Tablet Extended Rel 24 hr Take 1 tablet by mouth 2 times daily. Yes oxyCODONE-acetaminophen (PERCOCET) 10-325 mg Tablet Take 1 tablet by mouth 6 times daily. Yes INVOKANA 100 mg Tablet TAKE 1 TABLET BY MOUTH ONCE DAILY Yes insulin aspart protamine-insulin aspart 70/30 (NOVOLOG MIX 70-30 FLEXPEN) Insulin Pen Inject 15-30 Units subcutaneously 2 times daily (with meals). Yes omeprazole (PRILOSEC) 20 mg Capsule, Delayed Release(E.C.) Take 1 capsule by mouth daily. Yes gabapentin (NEURONTIN) 300 mg Capsule Take 300 mg by mouth. Yes pediatric multivitamin with iron Tablet, Chewable Take 2 tablets by mouth daily. Yes lidocaine (LIDODERM) 5 %(700 mg/patch) Place 1 patch onto the skin every 12 hours as needed. Yes baclofen (LIORESAL) 10 mg tablet Take 10 mg by mouth 4 times daily. Yes metFORMIN (GLUCOPHAGE) 500 mg tablet Take 500 mg by mouth 2 times daily (with meals). Yes ferrous sulfate 325 mg (65 mg iron) Tablet Take 1 tablet by mouth daily. After a meal with multivitamin Visits to emergency department or other unplanned visit to a health care facility since last visit?no Changes to health/ evaluations/ social history since last visit: as per updated problem list and e-DH. She has had a follow up with neurology for neuropathy and endocrinology. She had a panniculectomy in June. She is stressed because she has a new grandson whose mother is addicted to opiates, and her son is in court today requesting guardianship Subjective. Patient concerns at today's visit: Jo returns for routine follow up at 2 years post surgery. Sheis feeling well and has no bariatric surgery-related complaints. Bowel regimen: regular, no issues NSAID use: none Dietary history/ exercise/ activity level: See dietitian note. Review of Systems (negative if left blank): Constitutional: [] fatigue [] pica [] restless leg Neurologic: [] paresthesias [] memory loss CV: [] treatment for hypertension or taking antihypertensive medication [] treatment for hyperlipidemia Pulmonary: [] sleep apnea symptoms [ ] treatment for DAMIAN GI: [] GERD [] dysphagia [] dumping [] abdominal pain [] hernia [] nausea/vomiting [] blood in stool [] chronic diarrhea/ constipation CONSTRUCTION OPERATIONS MANAGER: [] LMP: [] control [] menorrhagia [+] postmenopause Skin: [] redundant skin or skinfold rashes Heme/Lymph: [] excessive bruising [] blood donor in past year Psychiatric [] mental health concerns Other: Employment/social:disabled/ Health-related habits: Tobacco:none Alcohol: none Objective: General: 52 y.o. year-old female looks well, ambulatory with walker Heart: RRR Lungs: CTA bilaterally without wheezing Abdomen: soft, non-tender. Abdominal panniculectomy scar well-healed, without evidence of hernia. Extremities:no edema Vital signs: Vitals 02/12/2018 BP 131/66 Pulse 78 Height to cm. 160 cm Height in inches 5' 3 Weight (Egyptian) 175 lbs 3 oz Weight (Metric) 79.5 kg BMI (Calculated) 31.03 BSA (Calculated - sq m) 1.88 Assessment: stable 2 years S/P gastric bypass , with loss of 60% of excess body weight. Iron deficiency. Non-compliance to calcium and B12 Results for JO JONES ( ) Ref. Range 02/12/2018 08:33 WBC Latest Ref Range: 4.0 - 9.5 x10(3)/mcL 9.5 RBC Latest Ref Range: 4.00 - 5.21 x10(6)/mcL 4.74 Hemoglobin Latest Ref Range: 11.7 - 15.5 gm/dL 13.0 Hematocrit Latest Ref Range: 35.7 - 45.8 % 41.3 MCV Latest Ref Range: 82.6 - 94.4 fL 87.1 MCH Latest Ref Range: 27.1 - 32.0 pg 27.4 MCHC Latest Ref Range: 31.7 - 35.0 gm/dL 31.5 (L) RDWSD Latest Ref Range: 37.0 - 46.0 fL 40.9 RDWCV Latest Ref Range: 11.5 - 14.1 % 12.7 Platelets Latest Ref Range: 145 - 357 x10(3)/mcL 237 MPV Latest Ref Range: 7.6 - 12.9 fL 10.8 nRBC % Auto Latest Units: % 0.0 nRBC Abs Auto Latest Ref Range: 0.000 - 0.000 x10(3)/mcL 0.000 Neutr Abs (ANC) Latest Ref Range: 1.70 - 6.10 x10(3)/mcL 5.82 Neutrophils % Latest Units: % 61.0 Immature Gran % Latest Units: % 0.40 Lymphocytes % Latest Units: % 31.2 Monocytes % Latest Units: % 5.5 Eosinophils % Latest Units: % 1.2 Basophils % Latest Units: % 0.7 Zahra Gran Abs Latest Ref Range: 0.00 - 0.04 x10(3)/mcL 0.04 Lymphocytes Abs Latest Ref Range: 0.9 - 3.2 x10(3)/mcL 3.0 Monocyte Abs Latest Ref Range: 0.3 - 0.9 x10(3)/mcL 0.5 Eosinophils Abs Latest Ref Range: 0.0 - 0.4 x10(3)/mcL 0.1 Basophils Abs Latest Ref Range: 0.0 - 0.1 x10(3)/mcL 0.1 Sodium Latest Ref Range: 135 - 145 mmol/L 141 Potassium Latest Ref Range: 3.5 - 5.0 mmol/L 4.4 Chloride Latest Ref Range: 98 - 107 mmol/L 104 CO2 Latest Ref Range: 22 - 31 mmol/L 28 Anion Gap Latest Ref Range: 5 - 15 mmol/L 9 BUN Latest Ref Range: 8 - 18 mg/dL 12 Creatinine Latest Ref Range: 0.70 - 1.20 mg/dL 0.55 (L) Estimated GFR Latest Ref Range: >=60 >60 Glucose Lvl Latest Ref Range: 65 - 199 mg/dL 212 (H) Calcium Latest Ref Range: 8.5 - 10.5 mg/dL 9.2 Hemoglobin A1C Latest Ref Range: 4.3 - 5.6 % 7.5 (H) Est Avg Gluc Latest Units: mg/dL 169 Ferritin Latest Ref Range: 30 - 400 ng/mL 25 (L) Folate Lvl Latest Ref Range: 4.8 - 24.2 ng/mL >20.0 Iron Latest Ref Range: 30 - 150 mcg/dL 79 TIBC Latest Ref Range: 250 - 450 mcg/dL 322 Iron Saturation Latest Ref Range: 20 - 50 % 25 Vitamin B-12 Latest Ref Range: 232 - 1245 pg/mL 543 25-OH Vit D Total Latest Ref Range: 30 - 100 ng/mL 58 Vit B1 Lvl WB Latest Ref Range: 70 - 180 nmol/L 207 (H) Plan: ?? Jo was congratulated on her ongoing healthy lifestyle efforts ?? E- medical record since last BSP visit reviewed ?? Next BSP visit: 1 year, to coordinate with endocrinology ?? Next labwork: iron screen in 6 months ?? Additional vitamin and mineral supplement recommendations (*in addition to usual post surgery supplements, as noted below): encouraged to consider taking calcium and vitamin B12 per guidelines, continue iron as tolerated. Prescription for OTC supplements provided. Continue vitamin D as per Dr. Reinoso ?? dietary/ exercise recommendations per RD ?? Advised to call if develops unexplained abdominal pain, concerns or questions She was provided with a Bariatric Program Summary report which included the above recommendations, as well as information on vitamin and mineral supplementation, fluids, exercise and support group meetings. She has had an opportunity to have all her questions answered and is in agreement with the plan of care. Jo was advised of lab results via mail. RECOMMENDED BARIATRIC SURGERY PROGRAM POSTOPERATIVE FOLLOW-UP: Follow [...] If labwork is done by the primary primary care provider: pleasesend a copy to the Bariatric Surgery Program, General Surgery Clinic, [facility], Questions regarding [facility] Bariatric Surgery Program patients: please call the Bariatric Surgery Program at [phone] documented in this encounter Plan of Treatment Upcoming Encounters Date Type Department Care Team (Late st Contact Info) Description 02/19/2025 9:00 AM EDT TH Visit (TeleHealth) [place] [id number] Wyatt Higgins MD [facility] [place] [address] documented as of this encounter Results * Folate, serum (02/12/2018 8:33 AM EDT) Folate Lvl >20.0 4.8 - 24.2 ng/mL [facility] Blood specimen (specimen) 02/12/2018 8:33 AM EDT 02/12/2018 8:39 AM EDT Narrative Resulting Agency Comment Spec In Lab Cathy Dillon ASSISTANT IN NURSING CHEMISTRY ORDERAB LES [facility] [place] [address] * (ABNORMAL) Vitamin B1, whole blood (02/12/2018 8:33 AM EDT) Vit B1 Lvl WB 207(H) 70 - 180 nmol/L [facility] Comment: ADDITIONAL INFORMATION This test was developed and its performance characteristics determined by [facility] in a manner consistent with CLIA requirements. This test has not been cleared or approved by the U.S. Food and Drug Administration. Test Performed by: [facility] - [facility] [address] [place] [address] Blood specimen (specimen) 02/12/2018 8:33 AM EDT 02/12/2018 9:06 AM EDT Narrative Resulting Agency Comment Spec In Lab Cathy Dillon ASSISTANT IN NURSING CHEMISTRY ORDERAB LES Performing Organization Address [facility] Co de Phone Number [facility] [place] [address] * (ABNORMAL) Ferritin (02/12/2018 8:33 AM EDT) [facility] Signature Ferritin 25(L) 30 - 400 ng/mL [facility] Comment: Pediatric reference ranges not verified at [facility], interpret with caution. Reference ranges for females greater than 50 years of age approach values for men, i.e., 30-400 ng/mL. Blood specimen (specimen) 02/12/2018 8:33 AM EDT 02/12/2018 8:39 AM EDT Narrative Resulting Agency Comment Spec In Lab Cathy Dillon ASSISTANT IN NURSING CHEMISTRY ORDERAB LES Performing Organization Address [facility] Co de Phone Number [facility] [place] [address] documented in this encounter Visit Diagnoses Diagnosis Disorder of iron metabolism Other disorders of iron metabolism Status post bariatric surgery Bariatric surgery status Intestinal malabsorption, unspecified type documented in this encounter Care Teams Teacher Physically Impaired Relationship Specialty Start Date End Date Nanda Read MD KIRILL D [address] [place] [address] PCP - General 09/14/10 06/06/18 documented as of this encounter
--- OUTSIDE RECORDS SUMMARY | 2024-05-15 11:10 | XMS_ITS | Encounter Summary ---
Author Organization [facility] [place] [address] Care Team Providers Care Operations Research Engineer Name Role Phone Nanda Read MD Primary Care Provider [phone] Reason for Visit * Reason Comments Follow-up three week follow up s/p jyo 06/30/17 Encounter Details Date Type Department Care Team (Late st Contact Info) Description 09/26/2017 10:20 AM EST Office Visit [place] [address] Christine Whitley APRN [facility] [place] [place] [address] Surgery follow-up Social History Tobacco Use Types Packs/Day Years [...] this encounter Patient Instructions * Patient Instructions* Christine Whitley APRN - 09/26/2017 10:20 AM EST 1. Folllow up in 3 months. 2. Keep any area of drainage covered. 3. Apply Aquaphor lotion to incision and massage closed areas. -SCAR MASSAGE TECHNIQUE: to begin 4-6 weeks following surgery What is a scar? When an injury occurs, the body immediately begins to repair itself & the area becomes swollen & sore. Eventually small collagen fibers form, becoming a solid tissue that results in a scar. This scar will continue to change in appearance for 1-2 years. Ideally, a scar is smooth & flat, blending in with the surrounding skin. However, some scars may become highly visible & unattractive due to factors such as your age, scar location & size, nutrition, genetics, or infection. A hypertrophic scar occurs when there is an excess production of collagen tissue that is elevated but remains within the wound boundaries. The scar is tense, red, & can be associated with itching & tenderness. A hypertrophic scar can be ordinary (usually stabilizes in 3 months & may even get smaller and smoother) or keloid. The keloid scar invades nearby tissue that was not part of the original wound, tends to enlarge even after 6 months & does not get softer. Will scar massage make my scars disappear? Nothing can make scars disappear. However, massaging the scar assists the body in breaking down thescar tissue to give it a flatter, softer, appearance. Massage also mobilizes the scar, preventing it from adhering to underlying tissue, tendons, & nerves. You can make the greatest difference in the appearance of the scar if you massage it in the first 3months. What should I use on my scars? You will hear many recommendations. This clinic finds that it is the massage itself that reduces the scar & not necessarily the choice of ointments or creams. We do discourage the use of Vitamin E oil, however, due to studies that have reported scar inflammation & deterioration. How do I massage my scars? Generously apply the lotion or cream into the scar 3-4 times a day for 8 weeks on new scars, and 3-4 times per day for 3 to 6 months on existing scars. Using your finger, apply pressure to the scar in a crosswise & circular direction, bearing down as hard as tolerated. Remember to protect your scar from the sun, especially in the first 6-12 months, by using a moisturizer with sunblock and wearing a physical barrier (ie: a hat) when possible documented in this encounter Progress Notes * Christine Whitley APRN - 09/26/2017 10:20 AM EST Plastic Surgery Post Op Note Reason for visit: F/U status post procedure Date of surgery: 06/29/17 Procedure(s): Panniculectomy Complications: None reported HPI: Pt reports that her skin breakdown has improved. She has been doing daily changes. She reportsthat has drainage and has been doing dressing changes with a pad. Examination: Patient is alert, conversant, comfortable, ambulating Umbilicus well perfused. Incisions well healed with the following exception: Right lateral side with 3 cm x 2 mm open area, fibrinous tissue in base. Serous drainage. No surrounding erythema. Impression: Martha Benoit is a 51 y.o. female who was seen today for follow-up after the above procedure. Please see the operative note for details. Healing well. Plan: 1. Folllow up in 3 months. 2. Keep any area of drainage covered. 3. Apply Aquaphor lotion to incision and massage closed areas. documented in this encounter Plan of Treatment Upcoming Encounters Date Type Department Care Team (Late st Contact Info) Description 02/19/2025 9:00 AM EDT TH Visit (TeleHealth) [place] [address] Wyatt Higgins MD [facility] [place] [address] documented as of this encounter Visit Diagnoses Diagnosis Surgery follow-up Follow-up examination, following unspecified surgery documented in this encounter Care Teams Operations Research Engineer Relationship Specialty Start Date End Date Nanda Read MD [facility] [address] [place] [address] PCP - General 09/14/10 06/06/18 documented as of this encounter
--- OUTSIDE RECORDS SUMMARY | 2024-05-15 11:10 | XMS_ITS | Encounter Summary ---
Author Organization [facility] [place] [address] Care Team Providers Care Travel Services Professional Name Role Phone Nanda Read MD Primary Care Provider Reason for Visit * Reason Onset Date Comments Medication Refill 08/22/2017 Encounter Details Date Type Department Care Team (Late st Contact Info) Description 08/22/2017 Refill [place] [address] Judith Reinoso MD [facility] [address] [place] [address] Social History Tobacco Use Types Packs/Day Years [...] Encounter - Tracy Tavarez LPN - 08/22/2017 8:26 AM EDT Images from the original note were not included. Heri Benoitie A?? Female, 51 y.o., 1965 Weight: 74.8 kg (165 lb) Home: PCP: Nanda Read MD myD-H: Active Next Appt: 08/31/2017 ?? Message Received: Yesterday ? Judith Reinoso MD Isham, Gail, LPN ? Caller: Unspecified (1 week ago) ? Yes, Ok to try to send Rx for Iron sulfate 325 mg po qd after meal and ok take Iron at same timeas MVit. documented in this encounter Plan of Treatment Upcoming Encounters Date Type Department Care Team (Late st Contact Info) Description 02/19/2025 9:00 AM EDT TH Visit (TeleHealth) [place] [address] Wyatt Higgins MD [facility] [place] [address] documented as of this encounter Visit Diagnoses Not on filedocumented in this encounter Care Teams Travel Services Professional Relationship Specialty Start Date End Date Nanda Read MD [facility] [address] [place] [address] PCP - General 09/14/10 06/06/18 documented as of this encounter
--- OUTSIDE RECORDS SUMMARY | 2024-05-15 11:10 | XMS_ITS | Encounter Summary ---
Author Organization [facility] [place] [address] Care Team Providers Care Inventory Controller Name Role Phone Nanda Read MD Primary Care Provider [phone] Encounter Details Date Type Department Care Team (Late st Contact Info) Description 08/10/2017 10:30 AM EDT Office [place] [address] Judith Reinoso MD [facility] [address] [place] [address] Type 2 diabetes, controlled, with neuropathy; Other iron deficiency anemia; Vitamin D deficiency Social History Tobacco Use [...] Sign Reading Time Taken Comments Blood Pressure 115/67 08/10/2017 10:05 AM EDT Pulse 85 08/10/2017 10:05 AM EDT Temperature - - Respiratory Rate - - Oxygen Saturation - - Inhaled Oxygen Concentration - - Weight 74.8 kg (165 lb) 08/10/2017 10:05 AM EDT Height 160 cm (5' 3) 08/10/2017 10:05 AM EDT Body Mass Index 29.23 08/10/2017 10:05 AM EDT documented in this encounter Patient Instructions * Patient Instructions* Judith Reinoso MD - 08/10/2017 10:30 AM EDT Recent Results (from the past 24 hour(s)) Hemogram Result Value Ref Range WBC 9.8 (H) 4.0 - 9.5 x10(3)/mcL RBC 4.64 4.00 - 5.21 x10(6)/mcL Hemoglobin 12.9 11.7 - 15.5 gm/dL Hematocrit 39.2 35.7 - 45.8 % MCV 84.5 82.6 - 94.4 fL MCH 27.8 27.1 - 32.0 pg MCHC 32.9 31.7 - 35.0 gm/dL Platelets 256 145 - 357 x10(3)/mcL RDWSD 39.9 37.0 - 46.0 fL RDWCV 13.0 11.5 - 14.1 % MPV 11.3 7.6 - 12.9 fL nRBC % Auto 0.0 % nRBC Abs Auto 0.000 0.000 - 0.000 x10(3)/mcL Ferritin Result Value Ref Range Ferritin 25 (L) 30 - 400 ng/mL Hemoglobin A1c Result Value Ref Range Hemoglobin A1C 6.8 (H) 4.3 - 5.6 % Est Avg Gluc 148 mg/dL Iron and TIBC Result Value Ref Range Iron 56 30 - 150 mcg/dL TIBC 311 250 - 450 mcg/dL Iron Saturation 18 (L) 20 - 50 % documented in this encounter Progress Notes * Judith Reinoso MD - 08/10/2017 10:30 AM EDT Endocrine Clinic Name: Martha Benoit : 1965 Date: 08/10/2017 PCP: Nanda Read MD Provided by: Judith Reinoso MD Reason for visit: Follow-up diabetes s/p bariatric surgery with Dr. Mai on 01/04/16 with good wtlost of 85 bs after the surgery and BMI 29 today! Diabetes treatment regimen: 70/30 10-15 u 2x/day (and rarely using Humalog sliding scale p.r.n for correction of high BG>180) Also, metformin 500 mg 1-2x/day, glipizideER 10 mg qAM, and Invokana 100 mg qd FSBG: average 120 over the past 2 weeks, ranging between 110s- 150s mg/dl Most recent HA1c: 6.8% today (was 7.6% on 01/1717, 7.4% on 07/05/16, 8.4% on 01/05/16, 11/03/15, 8.5% on 11/03/15). Hypoglycemia during the interval time: None (rare in 60s-70s mid-day with late lunch but no low Bg at night) Diet: low fat/low carb diet Exercise: walking Complications: no changes during the interim. Prevention: same as last visit recently. She is doing well losing another 14 lbs over the past 6 mo (used to weight 250 lbs in and now 165 lbs! With BMI 29). She could not swallow pills well but at least taking all her meds in AM as instructed and 70/30 mix low dose 10- 15u BID with good BG control (A1c 6.8% which is excellent!). Her insurance covered for 70/30 mix well. She is now 1.5 year post bariatric surgery and is better [...] but not a full dose of 1,000 m g bid) and also had GI side effects with byetta or bydureon in the past. Her vitamin D was better, up from 18 to 28-29 and now 70 (nl 30-100) while taking vit D 50,000 iu 2x/week as rec'd by bariatric team before the surgery. She increased Moore multivitamin to 2 tabdaily but this will not have enough iron for her need (pending for the result today with iron 56 and iron sat 18% not too far off). Denies any changes in vision, no CP, [...] to Visit Medication Sig Dispense Refill ??? cephalexin (KEFLEX) 500 mg Capsule Take 1 capsule by mouth 4 times daily for 10 days. 40 capsule 0 ??? oxyCODONE-acetaminophen (PERCOCET) 10-325 mg Tablet 10 [...] every 3 days. 30 capsule 3 ??? gabapentin (NEURONTIN) 300 mg [...] in her son/kidney stone Physical exam BP 115/67 Pulse 85 Ht 160 cm (5' 3) Wt 74.8 kg (165 lb) BMI 29.23 kg/m2 Appearance: Non-obese, pleasant, NAD, looks much better today but very slight thin scalp hairs HEENT: PERRLA, EOMI Neck: no goiter or lymphadenopathy Cardiac: normal S1, S2, no murmur Chest: CTA, no wheeze or crackle. Abdomen: benign, NT, ND Ext: no pitting edema no foot ulcer Neuro: mild weakness, depressed reflexes Skin: No dry skin Recent labs Recent Results (from the past 24 hour(s)) Hemogram Result Value Ref Range WBC 9.8 (H) 4.0 - 9.5 x10(3)/mcL RBC 4.64 4.00 - 5.21 x10(6)/mcL Hemoglobin 12.9 11.7 - 15.5 gm/dL Hematocrit 39.2 35.7 - 45.8 % MCV 84.5 82.6 - 94.4 fL MCH 27.8 27.1 - 32.0 pg MCHC 32.9 31.7 - 35.0 gm/dL Platelets 256 145 - 357 x10(3)/mcL RDWSD 39.9 37.0 - 46.0 fL RDWCV 13.0 11.5 - 14.1 % MPV 11.3 7.6 - 12.9 fL nRBC % Auto 0.0 % nRBC Abs Auto 0.000 0.000 - 0.000 x10(3)/mcL Ferritin Result Value Ref Range Ferritin 25 (L) 30 - 400 ng/mL Vitamin D, 25-Hydroxy Result Value Ref Range 25-OH Vit D Total 70 30 - 100 ng/mL Hemoglobin A1c Result Value Ref Range Hemoglobin A1C 6.8 (H) 4.3 - 5.6 % Est Avg Gluc 148 mg/dL Iron and TIBC Result Value Ref Range Iron 56 30 - 150 mcg/dL TIBC 311 250 - 450 mcg/dL Iron Saturation 18 (L) 20 - 50 % Assessment: 51 y.o. lady with Diabetes Type 2 s/p [...] bariatric team. Her B12 was trending down [id number] to 300s and we already gave her [...] 50,000 iu 1x/week and cont 2 of Moore MVI which contains iron (she couldnot tolerate [...] let her know the pending test results soon. 5. RTC: Next visit in 6 months (for 2-y post gastric bypass). Will check lab before next visit for HbA1c, CBC, BMP, dLDL, 25vitamin D, B12, iron/TIBC, and annual urine microalbumin/Cr. We have reviewed [...] AM EDT TH Visit (TeleHealth) [place] [address] Wyatt Higgins MD [facility] [place] [address] documented as of this encounter Results * Vitamin B12 (02/12/2018 8:33 AM EDT) Pathologist [facility] Vitamin B-12 543 232 - 1,245 pg/mL [facility] Comment: Please note: Effective 09/20/2017, the reference interval and the lower limit of detection for Vitamin B12 have been updated due to a new reagent formulation. Blood specimen (specimen) 02/12/2018 8:33 AM EDT 02/12/2018 8:39 AM EDT Narrative Resulting Agency Comment Spec In Lab Judith Reinoso MD CHEMISTRY ORDERAB LES [facility] [place] [place] [address] * Iron and TIBC (02/12/2018 8:33 AM EDT) [facility] Iron 79 30 - 150 mcg/dL [facility] TIBC 322 250 - 450 mcg/dL [facility] Iron Saturation 25 20 - 50 % [facility] Blood specimen (specimen) 02/12/2018 8:33 AM EDT 02/12/2018 8:39 AM EDT Narrative Resulting Agency Comment Spec In Lab Judith Reinoso MD CHEMISTRY ORDERAB LES [facility] [place] [address] * (ABNORMAL) Basic Metabolic Panel (non-fasting) (02/12/2018 8:33 AM EDT) Glucose Lvl 212(H) 65 - 199 mg/dL [facility] Comment:Diabetes: >=200 mg/d L plus symptoms BUN 12 8 - 18 mg/dL [facility] Creatinine 0.55(L) 0.70 - 1.20 mg/dL [facility] Sodium 141 135 - 145 mmol/L [facility] Potassium 4.4 3.5 - 5.0 mmol/L [facility] Comment: Please note: ??Patients with WBC >100,000 may have falsely elevated Potassium levels. ??For accurate Potassium quantification in these patients send serum separator tube (gold top) for subsequent determinations. ??Contact the Clinical Chemistry Laboratory if there are any questions. Chloride 104 98 - 107 mmol/L [facility] CO2 28 22 - 31 mmol/L [facility] Anion Gap 9 5 - 15 mmol/L [facility] Calcium 9.2 8.5 - 10.5 mg/dL [facility] Estimated GFR >60 >=60 [facility] Comment: The reported eGFR should be multiplied by 1.2 for patients. The MDRD is not an appropriate measure of renal function for patients with body mass extremes or in patients with acute kidney failure. http://[employer].INFOGRAPHIQS/DHnkdep http://[employer]DHMCnkf Blood specimen (specimen) 02/12/2018 8:33 AM EDT 02/12/2018 8:39 AM EDT Narrative Resulting Agency Comment Spec In Lab Judith Reinoso MD CHEMISTRY ORDERAB LES Performing Organization Address City/State/RUST Co de Phone Number [facility] [place] [address] * Vitamin D, 25-Hydroxy (02/12/2018 8:33 AM EDT) 25-OH Vit D Total 58 30 - 100 ng/mL [facility] Comment: Deficient <10 ng/mL Insufficient 10 to 29 ng/mL Sufficient 30 to 100 ng/mL Potential Intoxication >100 ng/mL According to the [place] National Osteoporosis Foundation, Vitamin D concentrations >30 ng/mL are sufficient to protect bone health. ??The National Kidney Foundation has similarly stated that patients with Vitamin D concentrations <30ng/mL should be considered to be insufficient or deficient. http://[employer].INFOGRAPHIQS/nkf-guidelines http://[employer].com/nejm-VitD The [employer] Vitamin D Immunoassay detects both 25-OH Vitamin D2 and 25-OH Vitamin D3, but only a total Vitamin D concentration is reported. Blood specimen (specimen) 02/12/2018 8:33 AM EDT 02/12/2018 10:22 AM EDT Narrative Resulting Agency Comment Spec In Lab Judith Reinoso MD CHEMISTRY ORDERAB LES [facility] [place] [address] * (ABNORMAL) Hemoglobin A1c (02/12/2018 8:33 AM EDT) Hemoglobin A1C 7.5(H) 4.3 - 5.6 % [facility] Comment: Reference Range: 4.3 [...] Mellitus, Diabetes Care 2013; 36: Suppl. 1, R77-00 Est Avg Gluc 169 mg/dL [facility] Comment: eAG equivalents [...] into estimated average glucose values. ??Diabetes Care 2008:31(8):7920-6746. Blood specimen (specimen) 02/12/2018 8:33 AM EDT 02/12/2018 8:39 AM EDT Narrative Resulting Agency Comment Spec In Lab Judith Reinoso MD CHEMISTRY ORDERAB LES [facility] [place] [address] * U Albumin/Cre Ratio (02/12/2018 8:29 AM EDT) Alb/Cr Ratio, Random Not Calculated 0 - 29 mcg/mg Cr [facility] Comment: Reference Ranges: <30 [...] 362 U Albumin Conc, Random <3.0 mg/L [facility] U Creatinine 55 mg/dL [facility] Urine specimen (specimen) 02/12/2018 8:29 AM EDT 02/12/2018 8:32 AM EDT Narrative Resulting Agency Comment Spec In Lab Judith Reinoso MD URINE ORDERABLES [facility] [place] [address] documented in this encounter Visit Diagnoses Diagnosis Type 2 diabetes, controlled, with neuropathy Type II or unspecified type diabetes mellitus with neurological manifestations, not stated as uncontrolled Other iron deficiency anemia Vitamin D deficiency Unspecified vitamin D deficiency documented in this encounter Care Teams Inventory Controller Relationship Specialty Start Date End Date Nanda Read MD [facility] [address] [place] [address] PCP - General 09/14/10 06/06/18 documented as of this encounter
--- OUTSIDE RECORDS SUMMARY | 2024-05-15 11:10 | XMS_ITS | Encounter Summary ---
Author Organization [facility] [place] [address] Care Team Providers Care Wardrobe Attendant Name Role Phone Nanda Read MD Primary Care Provider [phone] Reason for Visit * Reason Comments Follow Up Surgery s/p panni 06/29/17 Encounter Details Date Type Department Care Team (Late st Contact Info) Description 07/11/2017 11:20 AM EDT Office [place] [address] Christine Whitley APRN [facility] [place] [address] Surgery follow-up Social History Tobacco Use Types [...] * Patient Instructions* Christine Whitley APRN - 07/11/2017 11:20 AM EDT 1. Follow up: 3-6 months follow up with Dr. Rosenthal/Christine. 2. Restricted activities up to six weeks after date of surgery. Which includes no pushing, pulling or lifting over 5 pounds. 3. After the 6 weeks you may slowly increase daily activities. 4. Get up every two hours and walk around the house. documented in this encounter Progress Notes * Christine Whitley APRN - 07/11/2017 11:20 AM EDT Plastic Surgery Post Op Note Reason for visit: F/U status post procedure Date of surgery: 06/29/17 Procedure(s): Panniculectomy Complications: None reported HPI: Pt reports that she is doing better each day. She does not have any drains in. She reports that she removed the drains herself. She states that the drains output was down to approximately 30 ml per day. She appreciates soreness to the surgical area. She has concerns about the appearance of herbelly button. Examination: Patient is alert, conversant, comfortable, ambulating Incision: CDI, healing well. Umbilicus well perfused. No collection, no erythema, no evidence of cellulitis. Impression: Martha Benoit is a 51 y.o. female who was seen today for follow-up after the above procedure. Please see the operative note for details. Healing well. Plan: 1. Follow up: 3-6 months follow up with Dr. Blackwood. 2. Restricted activities up to six weeks after date of surgery. Which includes no pushing, pulling or lifting over 5 pounds. 3. After the 6 weeks you may slowly increase daily activities. 4. Get up every two hours and walk around the house. I, Madelin Juan, am acting as scribe for Christine Whitley APRN. All work documented was performed byChristine Whitley APRN ???I performed the above scribed service and agree with the accuracy of the note?? CHRISTINE WHITLEY APRN documented in this encounter Plan of Treatment Upcoming Encounters Date Type Department Care Team (Late st Contact Info) Description 02/19/2025 9:00 AM EDT TH Visit (TeleHealth) [place] [address] Wyatt Higgins MD [facility] [place] [address] documented as of this encounter Visit Diagnoses Diagnosis Surgery follow-up Follow-up examination, following unspecified surgery documented in this encounter Care Teams Wardrobe Attendant Relationship Specialty Start Date End Date Nanda Read MD [facility] [address] [place] [address] PCP - General 09/14/10 06/06/18 documented as of this encounter
--- OUTSIDE RECORDS SUMMARY | 2024-05-15 11:10 | XMS_ITS | Encounter Summary ---
[place] [address] Care Team Providers Care Accredited Legal Secretary Name Role Phone Nanda Read MD Primary Care Provider [phone] Reason for Visit * Reason Comments Follow Up Surgery 06/29/17 Panni incisio n check Encounter Details Date Type Department Care Team (Latest Contact Info) Description 08/01/2017 2:30 PM EDT Clinical [place] [address] Surgery follow-up Social History Tobacco Use Types [...] this encounter Patient Instructions * Patient Instructions* Mel Kiser RN - 08/01/2017 2:30 PM EDT Signs of Infection : A temperature over 100.4 F or 38 C. Redness at the incision line that is beginning to spread away from the incision after the first 48 hours. Yellow pus-like or foul smelling drainage larger than a dime size from the incision or drain sites. Increased pain / discomfort that is not relieved by your pain medicine. For any of these symptoms please call our nurse's line at [phone] M - F 8 - 5 May shower wash incision with soap and water Saline guaze dressing damp, apply to open areas on your incision twice daily cover with a guaze dressing documented in this encounter Progress Notes * Mel Kiser RN - 08/01/2017 2:30 PM EDT Images from the original note were not included. Reason for Visit: Postoperative Evaluation s/p Date of surgery: 06/29/17 ??Procedure(s): Panniculectomy Martha is here for an incision check and concerns about redness, increased pain, and opening on incision. Subjective: Martha states she has moderated discomfort. She takes her oxycodone for her neuropthy and the oxycodone doesn't help much. Martha reports she noticed redness a few days after her visit last week and that her incision gradually started to separate. Objective: Dr. Zamora in to see Martha. Debridement done on eschar areas; Wet to moist dressing to right lateral incision covered with a dry guaze, aquaphor applied to the rest of the incision. We reviewed instructions to do twice daily. Martha will be doing her own dressing changes, she refused VNA. She will call and ask for VNA if she can't rene doing the dressing changes. PO Keflex stated today Complications: none Assessment: Delayed healing,erythema,as seen in picture Plan: We reviewed signs and symptoms of infection, parameters for normal post op swelling and bruising as stated in our post op brochure. We reviewed increase protein in the diet, and correct phone numbers to call us for concerns. Dressing instructions; Wet to moist dressings twice daily, may shower clean with soap and water. Martha expressed understanding of instructions,and agrees with the plan of care. Follow up in 3 weeks or sooner with Christine Whitley APRN for wound check. documented in this encounter Plan of Treatment Upcoming Encounters Date Type Department Care Team (Late st Contact Info) Description 02/19/2025 9:00 AM EDT TH Visit (TeleHealth) [place] [address] Wyatt Higgins MD [facility] [place] [address] documented as of this encounter Visit Diagnoses Diagnosis Surgery follow-up Follow-up examination, following unspecified surgery documented in this encounter Care Teams Accredited Legal Secretary Relationship Specialty Start Date End Date Nanda Read MD [facility] [address] [place] [address] PCP - General 09/14/10 06/06/18 documented as of this encounter
--- OUTSIDE RECORDS SUMMARY | 2024-05-15 11:11 | XMS_ITS | Encounter Summary ---
Author Organization [facility], Located Within [facility] [place] [address] Care Team Providers Care Supervisor [employer] Name Role Phone Nanda Read MD Primary Care Provider [phone] Encounter Details Date Type Department Care Team (Late st Contact Info) Description 02/06/2017 9:00 AM EDT Office [place] [address] Judith Reinoso MD [facility] [place] [address] Type 2 diabetes, controlled, with neuropathy; Vitamin [...] Sign Reading Time Taken Comments Blood Pressure 108/71 02/06/2017 9:05 AM EDT Pulse 78 02/06/2017 9:05 AM EDT Temperature - - Respiratory Rate - - Oxygen Saturation - - Inhaled Oxygen Concentration - - Weight 81.2 kg (179 lb) 02/06/2017 9:05 AM EDT Height 160 cm (5' 3) 02/06/2017 9:05 AM EDT Body Mass Index 31.71 02/06/2017 9:05 AM EDT documented in this encounter Patient Instructions * Patient Instructions* Judith Reinoso MD - 02/06/2017 9:00 AM EDT Plan: 1. Medication: Adjustment of diabetes treatment regime: To cont 70/30 mix 15u qam and qpm. She is allow to titrate the dose by 2u if needed to keep BG at target of 90-180 range. To use Humalog pen sliding scale as needed if BG>180 while on 70/30 mix based on 1u:20 BG ratio. To cont glipizideER 10 mg qd/bid, metformin 500 mg qd/bid (could not tolerate the higher dose or swallowing pills well and has been taking them only qAM, not 2x/day) To cont invokana 100 mg qAM To cont vitamin D 50,000 iu 1-2x/week which may help with her hair loss and body aches. She has been taking 2 of Farwell MVI daily and could not tolerate iron supplement due to constipation. 2. To continue all other medications, vitamin supplements as instructed,and healthy diet to keep wtdown further 3. Monitoring: to check FSBG before each meal and at bedtime. Target BG 90-150 while fasting and 80-180 pre-meal during daytime Target A1c ~7% for this patient while on insulin 4. Lab: Already checked after lab after the visit and will let her know the test results today for A1c, TSH, dLDL, CBC, CMP, B12, iron/TIBC, 25vitD, DHEAS, testosterone (for her scalp hair loss). 5. RTC: Next visit in 6 months (for 18 mo post gastric bypass). Will check lab before next visit for HbA1c, BMP, 25vitamin D and annual urine microalbumin/Cr ratio as planned. documented in this encounter Progress Notes * Judith Reinoso MD - 02/06/2017 9:00 AM EDT Endocrine Clinic Name: [facility] Benoit : 1965 Date: 02/06/2017 PCP: Nanda Read MD Provided by: Judith Reinoso MD Reason for visit: Follow-up diabetes s/p bariatric surgery with Dr. Mai on 01/04/16 with good wtlost after the surgery Diabetes treatment regimen: 70/30 15 u 2x/day (and rarely using Humalog sliding scale p.r.n for correction of high BG>180) Also, metformin 500 mg only in AM, glipizideER 10 mg qAM and Invokana 100 mg qd FSBG: average 140 over the past 2 weeks, ranging between 110s- 150s mg/dl Most recent HA1c: pending today (was 7.4% on 07/05/16, 8.4% on 01/05/16, 11/03/15, 8.5% on 11/03/15). Hypoglycemia during the interval time: None Diet: low fat/low carb diet Exercise: walking Complications: no changes during the interim. Prevention: same as last visit recently. She is doing well losing another 10 lbs over the past 6 mo (used to weight 249 lbs in and now 179 lbs! With BMI 31). She could not swallow pills well but at least taking all her meds in AM as instructed and 70/30 mix low dose 15u BID with better BG control. Her insurance covered for 70/30 mix well. She has lost wt quickly from 250 lbs to 216 lbs at 2 months and now 179 lbs at 1 year post bariatric surgery which is excellent. She will see Dr. Mai and Cathy Dillon SCREEN CLEANER again soon as well. She is better from her foot drop/peripheral neuropathy, using walker and used to see neurologist. She wants to lose wt further and is glad that she does not feel hungry and adjusted well to her smaller stomach. This will help reduce insulin resistance, especially when she could not tolerate metformin higher dose well (ok with 500 mg qd/bid but not a full dose of 1,000 mg bid) and also had GI side effects with byetta or bydureon in the past. Her vitamin D was better, up from 18 to 38 but then dropped back to slightly low at 28-29 (nl 30-100) after she tapered vitamin D to weekly and already increased it back to 50,000 iu 2x/week as rec'dby bariatric team before the surgery. She recently increased Farwell multivitamin to 2 tab dailybut this will not have enough iron or vitamin D for her need (pending for the result today). Deniesany changes in vision, no CP, SOB, GI [...] unspecified type diabetes mellitus with renal manifestations, uncontrolled E11.29, E11.65 ??? Peripheral autonomic neuropathy due to diabetes mellitus E11.43 ??? Unspecified hypothyroidism E03.9 ??? Seborrheic keratosis L82.1 ??? Gastroesophageal reflux K21.9 ??? Increased PTH level E34.9 ??? Iron deficiency E61.1 ??? Memory loss R41.3 Current Outpatient Prescriptions on File Prior to Visit Medication Sig Dispense Refill ??? ergocalciferol (ERGOCALCIFEROL) 50,000 unit Capsule Take 1 capsule by mouth every 3 days. 30 capsule 3 ??? [DISCONTINUED] glipiZIDE (GLUCOTROL XL) 10 mg Tablet Extended Rel 24 hr Take 1 tablet by mouth 2 times daily. 180 tablet 3 ??? INVOKANA 100 mg Tablet TAKE 1 TABLET BY MOUTH ONCE DAILY 30 tablet 11 ??? oxyCODONE-acetaminophen (PERCOCET) 10-325 mg Tablet Take 1 tablet by mouth every 4 hours as needed for Pain. ??? gabapentin (NEURONTIN) 300 mg Capsule Take 300 mg by mouth 3 times daily. ??? pediatric multivitamin with iron Tablet, Chewable Take 2 tablets by mouth daily. ??? insulin aspart protamine-insulin aspart 70/30 (NOVOLOG MIX 70-30 FLEXPEN) Insulin Pen Inject 15-30 Units subcutaneously 2 times daily (with meals). 45 mL 3 ??? Insulin Syringe-Needle U-100 (BD INSULIN SYRINGE ULT-FINE II) 1 mL 31 x 5/16 Syringe Inject 1 each subcutaneously 3 times daily as needed. 100 Syringe 12 ??? Insulin Lispro (HUMALOG) 100 unit/mL Insulin Pen Inject 2-12 Units subcutaneously 4 times dailyas needed. 15 mL 0 ??? pravastatin (PRAVACHOL) 20 mg Tablet Take 20 mg by mouth daily. ??? lidocaine (LIDODERM) 5 %(700 mg/patch) Place 1 patch onto the skin every 12 hours as needed. ??? baclofen (LIORESAL) 10 mg tablet Take 10 mg by mouth 4 times daily. ??? folic acid (FOLVITE) 1 mg tablet Take 1 mg by mouth daily. ??? metFORMIN (GLUCOPHAGE) 500 mg tablet Take 500 mg by mouth 2 times daily (with meals). ??? POTASSIUM CHLORIDE (KLOR-CON 10 ORAL) Take 10 mEq by mouth 2 times daily. ??? Insulin Syringe-Needle U-100 (INSULIN SYRINGE) 1/2 mL 30 x 5/16 Syrg by [facility].(Non-Drug; Combo Route) route 2 times daily. Using with insulin bid 1 Box 4 No current facility-administered medications on file prior to visit. Allergies Allergen Reactions ??? Codeine Phosphate Nausea And Vomiting Social History Social History ??? Marital status: Spouse name: N/A ??? Number of children: N/A ??? Years of education: N/A Occupational History ??? disabled Social History Main Topics ??? Smoking status: Never Smoker ??? Smokeless tobacco: Never Used ??? Alcohol use No ??? Drug use: No ??? Sexual activity: Not Asked Other Topics Concern ??? None Social History Narrative FAMILY HISTORY Family History Problem Relation Age of Onset ??? Diabetes ??? High Cholesterol ??? Hypertension ??? Stroke ??? Obesity ??? Psoriasis ??? * congenital malformation in her son/kidney stone ??? Diabetes Mother ??? Diabetes Father Physical exam BP 108/71 Pulse 78 Ht 160 cm (5' 3) Wt 81.2 kg (179 lb) BMI 31.71 kg/m2 Appearance: Mildly obese, pleasant, NAD, looks better today but still having thinner scalp hairs today HEENT: PERRLA, EOMI Neck: no goiter or lymphadenopathy Cardiac: normal S1, S2, no murmur Chest: CTA, no wheeze or crackle. Abdomen: benign, NT, ND Ext: no pitting edema no foot ulcer Neuro: mild weakness, depressed reflexes Skin: +dry skin Recent labs (pending for lab today) Ref. Range 01/25/2016 14:49 WBC Latest Ref Range: 4.0 - 10.0 x10(3)/mcL 8.6 RBC Ref Range: 3.93 - 5.22 x10(6)/mcL 5.10 Hemoglobin Latest Ref Range: 11.2 - 15.7 gm/dL 13.5 Hematocrit Latest Ref Range: 34.0 - 45.0 % 41.1 MCV Latest Ref Range: 79.0 - 94.0 fL 80.6 MCH Latest Ref Range: 26.6 - 32.2 pg 26.5 (L) MCHC Latest Ref Range: 32.0 - 36.5 gm/dL 32.8 RDWSD Latest Ref Range: 35.0 - 46.0 fL 44.5 RDWCV Latest Ref Range: 10.9 - 14.4 % 15.3 (H) Platelets Latest Ref Range: 145 - 370 x10(3)/mcL 204 MPV Latest Ref Range: 9.0 - 12.0 fL 11.5 Neutr Abs (ANC) Ref Range: 1.50 - 6.30 x10(3)/mcL 5.81 Neutrophils % Latest Units: % 67.3 Immature Gran % Latest Units: % 0.20 Lymphocytes % Latest Units: % 23.9 Monocytes % Latest Units: % 7.3 Eosinophils % Latest Units: % 0.7 Basophils % Latest Units: % 0.6 Zahra Gran Abs Ref Range: 0.00 - 0.05 x10(3)/mcL 0.02 Lymphocytes Abs Latest Ref Range: 1.0 - 3.6 x10(3)/mcL 2.1 Monocyte Abs Latest Ref Range: 0.2 - 1.0 x10(3)/mcL 0.6 Eosinophils Abs Latest Ref Range: 0.0 - 0.5 x10(3)/mcL 0.1 Basophils Abs Latest Ref Range: 0.0 - 0.2 x10(3)/mcL 0.0 Sodium Latest Ref Range: 135 - 145 mmol/L 137 Potassium Latest Ref Range: 3.5 - 5.0 mmol/L 3.8 Chloride Latest Ref Range: 98 - 107 mmol/L 99 CO2 Latest Ref Range: 22 - 31 mmol/L 20 (L) Anion Gap Latest Ref Range: 5 - 15 mmol/L 18 (H) BUN Latest Ref Range: 8 - 18 mg/dL 2 (L) Creatinine Latest Ref Range: 0.70 - 1.20 mg/dL 0.41 (L) Estimated GFR Latest Ref Range: >=60 >60 Glucose Fasting Latest Ref Range: 65 - 99 mg/dL 218 (H) Assessment: 51 y.o. lady with Diabetes Type II s/p gastric bypass surgery a year ago with significant wt loss down 60 lbs from 250 to 189 lbs.and now 179 lbs today with better A1c 7.4-8.1% range. At home, pt stated that her FBG 100-150 (never see 180s or more) and no need for sliding scale at all. She is stillhaving good c- peptide 2.9 from her own insulin production (but still not enough for her need due toinsulin resistance and mild obesity). She will see bariatric team again soon as well. She is very pleased with her wt loss and wants to lose more wt further to keep A1c down for her diabetic neuropathy. She has insulin resistance and required U-500 in the past along with 3 oral agents before the surgery and now only needs 70/30 mix insulin 15 u bid. She could not swallow pills well (especially metformin and also reduced glipizide to qam) and intolerant to GLP-1 due to GI side effects, so it's ok to use insulin low dose for now. Complication Risk Status: complications present +sever peripheral neuropathy in both feet and walking with walker to help her balance Also, treated for chronic vttamin D deficiency (25vitamin D down 18 and then better at 38-47 after she took vitamin D 50,000 iu 2x/wk but then dropped to slightly low 28-29 range after she tapered vitD down to weekly, so she was instructed to increase to 2x/weekly dose by bariatric team already). Her B12 was trending down from 400s to 300s and we already gave her B12 injection x1 on 03/09/16 as a booster dose for her neuropathy and will recheck lab today. Plan: 1. Medication: Adjustment of diabetes treatment regime: To cont 70/30 mix 15u qam and qpm. She is allow to titrate the dose by 2u if needed to keep BG at target of 90-180 range. To use Humalog pen sliding scale as needed if BG>180 while on 70/30 mix based on 1u:20 BG ratio. To cont glipizideER 10 mg qd/bid, metformin 500 mg qd/bid (could not tolerate the higher dose or swallowing pills well and has been taking them only qAM, not 2x/day) To cont invokana 100 mg qAM To cont vitamin D 50,000 iu 1-2x/week which may help with her hair loss and body aches. She has been taking 2 of Farwell MVI daily and could not tolerate iron supplement due to constipation. 2. To continue all other medications, vitamin supplements as instructed,and healthy diet to keep wtdown further 3. Monitoring: to check FSBG before each meal and at bedtime. Target BG 90-150 while fasting and 80-180 pre-meal during daytime Target A1c ~7% for this patient while on insulin 4. Lab: Already checked after lab after the visit and will let her know the test results today for A1c, TSH, dLDL, CBC, CMP, B12, iron/TIBC, 25vitD, DHEAS, testosterone (for her scalp hair loss). 5. RTC: Next visit in 6 months (for 18 mo post gastric bypass). Will check lab before next visit for HbA1c, BMP, 25vitamin D and annual urine microalbumin/Cr ratio as planned. We have reviewed our plan outlined above with the patient and patient verbalized understanding. Allquestions were answered and most of the time was spent on counseling about medication adjustment and proper use of insulin, diet, exercise, cardiac risk prophylaxis, the diagnostic and therapeutic decisions, and coordination of care. Judith Reinoso MD, PhD, FACE CC: Nanda Read MD documented in this encounter Miscellaneous Notes * Addendum Note - Rufina Coleman - 02/06/2017 9:58 AM EDTAddended by: RUFINA COLEMAN on: 02/06/2017 09:58 AM Modules accepted: Orders documented in this encounter Plan of Treatment Upcoming Encounters Date Type Department Care Team (Late st Contact Info) Description 02/19/2025 9:00 AM EDT TH Visit (TeleHealth) [place] [address] Wyatt Higgins MD [facility] [place] [address] Scheduled Orders Name Type Priority Associated Diagnoses Orde r Schedule Hemoglobin A1c Lab Routine Type 2 diabetes, controlled, with neuropathy Expected: 08/06/2017, Expires: 02/07/2018 documented as of this encounter Procedures Procedure Name Priority Date/Time Associated Diagnosis Comments HEMOGRAM Routine 02/06/2017 10:20 AM EDT Type 2 diabetes, controlled, with neuropathy Vitamin D deficiency Iron deficiency anemia due to chronic blood loss DIFFERENTIAL, AUTOMATED Routine 02/06/2017 10:20 AM EDT Type 2 diabetes, controlled, with neuropathy Vitamin D deficiency Iron deficiency anemia due to chronic blood loss IRON AND TIBC Routine 02/06/2017 10:20 AM EDT Type 2 diabetes, controlled, with neuropathy Vitamin D deficiency Iron deficiency anemia due to chronic blood loss VITAMIN D, 25-HYDROXY Routine 02/06/2017 10:20 AM EDT Type 2 diabetes, controlled, with neuropathy Vitamin D deficiency Iron deficiency anemia due to chronic blood loss DHEA-SULFATE Routine 02/06/2017 10:20 AM EDT Type 2 diabetes, controlled, with neuropathy Vitamin D deficiency Iron deficiency anemia due to chronic blood loss CBC (WITH DIFF) Routine 02/06/2017 10:20 AM EDT Type 2 diabetes, controlled, with neuropathy Vitamin D deficiency Iron deficiency anemia due to chronic blood loss TSH Routine 02/06/2017 10:20 AM EDT Type 2 diabetes, controlled, with neuropathy Vitamin D deficiency Iron deficiency anemia due to chronic blood loss TESTOSTERONE, TOTAL Routine 02/06/2017 1 0:20 AM EDT Type 2 diabetes, controlled, with neuropathy Vitamin D deficiency Iron deficiency anemia due to chronic blood loss LDL CHOLESTEROL, DIRECT STAT 02/06/2017 10:20 AM EDT Type 2 diabetes, controlled, with neuropathy Vitamin D deficiency Iron deficiency anemia due to chronic blood loss HEMOGLOBIN A1C Routine 02/06/2017 10:20 AM EDT Type 2 diabetes, controlled, with neuropathy Vitamin D deficiency Iron deficiency anemia due to chronic blood loss VITAMIN B12 Routine 02/06/2017 10:20 AM EDT Type 2 diabetes, controlled, with neuropathy Vitamin D deficiency Iron deficiency anemia due to chronic blood loss COMPREHENSIVE METABOLIC PANEL (NON-FASTING) Routine 02/06/2017 10:20 AM EDT Type 2 diabetes, controlled, with neuropathy Vitamin D deficiency Iron deficiency anemia due to chronic blood loss documented in this encounter Results * Differential, Automated (02/06/2017 10:20 AM EDT) Neutrophils % 58.1 % [facility] Neutr Abs (ANC) 5.66 1.70 - 6.10 x10(3)/[facility] Lymphocytes % 33.1 % [facility] Lymphocytes Abs 3.2 0.9 - 3.2 x10(3)/[facility] Monocytes % 6.4 % [facility] Monocyte Abs 0.6 0.3 - 0.9 x10(3)/[facility] Eosinophils % 1.5 % [facility] Eosinophils Abs 0.2 0.0 - 0.4 x10(3)/[facility] Basophils % 0.6 % [facility] Basophils Abs 0.1 0.0 - 0.1 x10(3)/[facility] Immature Gran % 0.30 % [facility] Comment: Immature granulocytes(IG's)percentage and absolute count will include metamyelocytes, myelocytes, and promyelocytes. Blood smears from CBCs yielding IG's will be scanned manually for concordance. If this scan disagrees with the automated IG or if promyelocytes are noted, a manual differential will be performed. Zahra Gran Abs 0.03 0.00 - 0.04 x10(3)/[facility] Blood specimen (specimen) 02/06/2017 10:20 AM EDT 02/06/2017 10:37 AM EDT Narrative Resulting Agency Comment Spec In Lab Judith Reinoso MD HEMATOLOGY ORDERA BLES [facility] [place] [address] * (ABNORMAL) Hemogram (02/06/2017 10:20 AM EDT) WBC 9.7(H) 4.0 - 9.5 x10(3)/[facility] RBC 4.77 4.00 - 5.21 x10(6)/[facility] Hemoglobin 13.1 11.7 - 15.5 gm/dL [facility] Hematocrit 40.6 35.7 - 45.8 % [facility] MCV 85.1 82.6 - 94.4 fL [facility] MCH 27.5 27.1 - 32.0 pg [facility] MCHC 32.3 31.7 - 35.0 gm/dL [facility] Platelets 251 145 - 357 x10(3)/[facility] RDWSD 42.3 37.0 - 46.0 fL [facility] RDWCV 13.4 11.5 - 14.1 % [facility] MPV 11.4 7.6 - 12.9 fL [facility] nRBC % Auto 0.0 % [facility] nRBC Abs Auto 0.000 0.000 - 0.000 x10(3)/mcL [facility] Blood specimen (specimen) 02/06/2017 10:20 AM EDT 02/06/2017 10:37 AM EDT Narrative Resulting Agency Comment Spec In Lab Judith Reinoso MD HEMATOLOGY SKYLAR SÁNCHEZ [facility] [place] [address] * Testosterone, total (02/06/2017 10:20 AM EDT) Testo Total 0.26 0.06 - 0.82 ng/mL [facility] Comment: Reference Ranges: ? Males (7to18 years) ?Females (8-18 years) Natan Stage ?ng/ml ? ng/ml ? 1 ? <0.03 ? <0.03 to 0.06 ? 2 ? <0.03 to 4.32 ? <0.03 to 0.10 ? 3 ? 0.65 to 7.78 ?<0.03 to 0.24 ? 4 ? 1.80 to 7.63 ?<0.03 to 0.27 ? 5 ? 1.88 to 8.82 ?<0.05 to 0.38 ?Males 18 years to adult ? Females 18 years to adult ? 2.80 to 8.00 ng/ml ?0.06 to 0.82 ng/ml Stated adult reference ranges derived from review of [employer] E170 Testosterone reagent package insert 08/27, V8 Stated pediatric reference ranges derived from review of [employer] E170 Testosterone II reagent package insert 05/01, V2. Blood specimen (specimen) 02/06/2017 10:20 AM EDT 02/06/2017 10:37 AM EDT Narrative Resulting Agency Comment Spec In Lab Judith Reinoso MD CHEMISTRY ORDERAB LES Performing Organization Address [facility] de Phone Number [facility] [place] [address] * DHEA-sulfate (02/06/2017 10:20 AM EDT) DHEAS 119.1 35.4 - 256.0 mcg/dL [facility] Blood specimen (specimen) 02/06/2017 10:20 AM EDT 02/06/2017 10:37 AM EDT Narrative Resulting Agency Comment Spec In Lab Judith Reinoso MD CHEMISTRY ORDERAB LES Performing Organization Address [facility] Co de Phone Number [facility] [place] [address] * (ABNORMAL) Comprehensive metabolic panel (non-fasting) (02/06/2017 10:20 AM EDT) Glucose Lvl 134 65 - 199 mg/dL [facility] Comment:Diabetes: >=200 mg/d L plus symptoms BUN 14 8 - 18 mg/dL [facility] Creatinine 0.48(L) 0.70 - 1.20 mg/dL [facility] Comment: Please note that the pediatric reference intervals supplied above were not validated at [facility]. Results from pediatric patients should be interpreted in conjunction to the patient's age, height and muscle mass. Sodium 144 135 - 145 mmol/L [facility] CO2 27 22 - 31 mmol/L [facility] Anion Gap 12 5 - 15 mmol/L [facility] Calcium 9.1 8.5 - 10.5 mg/dL [facility] Total Protein 7.5 6.1 - 8.0 gm/dL [facility] Albumin 3.7 3.2 - 5.2 gm/dL [facility] AST 12 0 - 30 unit/L [facility] ALT 14 0 - 30 unit/L [facility] Alk Phos 105(H) 40 - 104 unit/L [facility] Total Bilirubin 0.4 0.2 - 1.3 mg/dL [facility] Bili, Direct 0.1 0.0 - 0.3 mg/dL [facility] Estimated GFR >60 >=60 [facility] Comment: This estimated GFR (eGFR) value was calculated using the MDRD equation which has been validated on patients between the ages of 18 and 70. The MDRD should not be used to assess kidney function in patients < 18 years of age or in patients with extremes of body mass, or in patients with acute kidney failure. This value should be multiplied by 1.2 for patients. For further information please copy and paste the following links into your internet browser. [email or web address] Blood specimen (specimen) 02/06/2017 10:20 AM EDT 02/06/2017 10:37 AM EDT Narrative Resulting Agency Comment Spec In Lab Judith Reinoso MD CHEMISTRY ORDERAB LES Performing Organization Address [facility] Co de Phone Number [facility] [place] [address] * (ABNORMAL) Iron and TIBC (02/06/2017 10:20 AM EDT) Iron 62 30 - 150 mcg/dL [facility] TIBC 323 250 - 450 mcg/dL [facility] Iron Saturation 19(L) 20 - 50 % [facility] Blood specimen (specimen) 02/06/2017 10:20 AM EDT 02/06/2017 10:37 AM EDT Narrative Resulting Agency Comment Spec In Lab Judith Reinoso MD CHEMISTRY ORDERAB LES Performing Organization Address [facility] Co de Phone Number [facility] [place] [address] * Vitamin B12 (02/06/2017 10:20 AM EDT) Vitamin B-12 448 207 - 974 pg/mL [facility] Blood specimen (specimen) 02/06/2017 10:20 AM EDT 02/06/2017 10:37 AM EDT Narrative Resulting Agency Comment Spec In Lab Judith Reinoso MD CHEMISTRY ORDERAB LES Performing Organization Address City/[facility]/ZIP Co de Phone Number [facility] [place] [address] * TSH (02/06/2017 10:20 AM EDT) TSH 1.29 0.27 - 4.20 mcIU/mL [facility] Blood specimen (specimen) 02/06/2017 10:20 AM EDT 02/06/2017 10:37 AM EDT Narrative Resulting Agency Comment Spec In Lab Judith Reinoso MD CHEMISTRY ORDERAB LES Performing Organization Address City/[facility]/ZIP Co de Phone Number [facility] [place] [address] * (ABNORMAL) Vitamin D, 25-Hydroxy (02/06/2017 10:20 AM EDT) Pathologist [facility] 25-OH Vit D Total 27(L) 30 - 100 ng/mL [facility] [place] [...] be considered to be insufficient or deficient. [email or web address]/[email or web address] The IDS iSYS Vitamin D Immunoassay detects both 25-OH Vitamin D2 and 25-OH Vitamin D3, but only a total Vitamin D concentration is reported. Blood specimen (specimen) 02/06/2017 10:20 AM EDT 02/06/2017 1:48 PM EDT Narrative Resulting Agency Comment Spec In Lab Judith Reinoso MD CHEMISTRY ORDERAB LES Performing Organization Address City/[facility]/ZIP Co de Phone Number [facility] [place] [address] * LDL Cholesterol, Direct (02/06/2017 10:20 AM EDT) LDL Chol Direct 125 <=190 mg/dL [facility] Blood specimen (specimen) 02/06/2017 10:20 AM EDT 02/06/2017 10:37 AM EDT Narrative Resulting Agency Comment Spec In Lab Judith Reinoso MD CHEMISTRY ORDERAB LES [facility] [place] [address] * (ABNORMAL) Hemoglobin A1c (02/06/2017 10:20 AM EDT) Hemoglobin A1C 7.6(H) 4.3 - 5.6 % [place] [...] 36: Suppl. 1, S67-74 Est Avg Gluc 171 mg/dL [facility] Comment: eAG equivalents for HbA1c percentages: HbA1c(%) ?eAG(mg/dL) 6.0 ?126 6.5 ?140 7.0 ?154 7.5 ?169 8.0 ?183 8.5 ?197 9.0 ?212 9.5 ?226 10.0 ? 240 Limitations: The eAG calculation has not been validated on women, individuals below 18 years old and above 70 years old, and individuals with hemoglobinopathies. Additional resources are available on the ADA website: http://[email or web address].com/DHMCadacalc Maurice GODINEZ, Marion J, Miriam R, et al. ??Translating the A1C assay into estimated average glucose values. ??Diabetes Care 2008:31(8):5673-9479. Blood specimen (specimen) 02/06/2017 10:20 AM EDT 02/06/2017 10:37 AM EDT Narrative Resulting Agency Comment Spec In Lab Judith Reinoso MD CHEMISTRY ORDERAB LES [facility] [place] [address] documented in this encounter Visit Diagnoses Diagnosis Type 2 diabetes, controlled, with neuropathy Type II or unspecified type diabetes mellitus with neurological manifestations, not stated as uncontrolled Vitamin D deficiency Unspecified vitamin D deficiency Iron deficiency anemia due to chronic blood loss Iron deficiency anemia secondary to blood loss (chronic) documented in this encounter Care Teams Supervisor Electrolytic Tinning Relationship Specialty Start Date End Date Nanda Read MD [facility] [address] [place] [address] PCP - General 09/14/10 06/06/18 documented as of this encounter
--- OUTSIDE RECORDS SUMMARY | 2024-05-15 11:11 | XMS_ITS | Encounter Summary ---
[place] [address] Care Team Providers Care Ghost Writer Name Role Phone Nanda Read MD Primary Care Provider [phone] Encounter Details Date Type Department Care Team (Late st Contact Info) Description 02/01/2016 Telephone [place] [id number] Rosey Hastings Social History Tobacco Use Types Packs/Day Years [...] encounter Miscellaneous Notes * Telephone Encounter - Rosey Hastings - 02/01/2016 11:03 AM EDT Martha called to cancel her HCK scheduled for 02/02/16. She states she's not feeling up to it. I asked her to reschedule for later this week and she declined. She said she'll call back in a couple ofweeks, I asked if she wanted to schedule that now and she responded that she'll call when she's feeling better. documented in this encounter Plan of Treatment Upcoming Encounters Date Type Department Care Team (Late st Contact Info) Description 02/19/2025 9:00 AM EDT TH Visit (TeleHealth) [place] [address] Wyatt Higgins MD [facility] [place] [address] documented as of this encounter Visit Diagnoses Not on filedocumented in this encounter Care Teams Ghost Writer Relationship Specialty Start Date End Date Nanda Read MD [facility] [address] [place] [address] PCP - General 09/14/10 06/06/18 documented as of this encounter
--- OUTSIDE RECORDS SUMMARY | 2024-05-15 11:11 | XMS_ITS | Encounter Summary ---
Author Organization [facility] [place] [address] Care Team Providers Care Residential Treatment Counselor Name Role Phone MunozRuth jerome Lilibeth JUAREZ Primary Care Provider + Reason for Visit * Reason Comments Medication Refill Encounter Details Date Type Department Care Team (Late st Contact Info) Description 10/02/2016 Refill [place] [phone] Cathy Dillon APRN [facility] [place] [address] Social History Tobacco Use Types Packs/Day Years [...] AM EDT TH Visit (TeleHealth) [place] [phone] Wyatt Higgins MD [facility] [place] [address] documented as of this encounter Visit Diagnoses Not on filedocumented in this encounter Care Teams Residential Treatment Counselor Relationship Specialty Start Date End Date Ruth Munoz, [address] [place] [address] PCP - General Family Medicine 02/05/19 documented as of this encounter
--- OUTSIDE RECORDS SUMMARY | 2024-05-15 11:11 | XMS_ITS | Encounter Summary ---
Author Organization [facility] Address [facility] [place] [address] Care Team Providers Care Mold Release Worker Name Role Phone Nanda Read MD Primary Care Provider Reason for Visit * Consultation (Routine) - Closed Specialty Diagnoses / Procedures Referred By Patricio monsivais Referred To Contact Plastic Surgery Diagnoses Candidal intertrigo Symptomatic abdominal panniculus Cathy Dillon, LARRY [facility] [place] [address] Abril Machado MD [facility] [place] [address] Referral ID Status Reason Start Date Expiration Date V isits Requested Visits Authorized [id number] Closed Consult, Test & Treat 04/06/2017 04/06/2018 1 1 Encounter Details Date Type Department Care Team (Late st Contact Info) Description 04/27/2017 9:45 AM EDT Office [place] [address] Chetan Rosenthal MD [facility] [address] Abdominal pannus Social History Tobacco Use Types Packs/Day Years [...] - Inhaled Oxygen Concentration - - Weight 79.8 kg (176 lb) 04/27/2017 9:44 AM EDT Height 160 cm (5' 3) 04/27/2017 9:44 AM EDT Body Mass Index 31.18 04/27/2017 9:44 AM EDT documented in this encounter Patient Instructions * Patient Instructions* Jacquelyn Sinclair LPN - 04/27/2017 9:45 AM EDT You were given written and verbal preoperative instructions today. To prepare for your upcoming surgery, please review the Pre-Operative Instruction brochure that youwere given at today's appointment. Feel free to call our office [phone] if you have any questions or concerns. We monitor the phones from 8-Monday through Monday. documented in this encounter Progress Notes * Chetan Rosenthal MD - 04/27/2017 9:45 AM EDT Plastic Surgery Consultation Note Chetan Rosenthal MD PCP: Nanda Read MD CC: Abdominal pannus HPI: Martha Benoit is a 51 y.o. female seen in my office today for consideration for abdominal panniculectomy. Cathy Dillon APRN has requested the consultation. She now weighs 176 lbs. Her current [...] work. The patient uses a walker due to her neuropathy. The patient had a tubal ligation in the past. The patient reports her buttockskin is very thin. The patient has used creams for the active intertrigo in the past. She reports that this did not help improve the intertrigo, so she is currently not applying any cream underneath t he pannus. The patient plans to have lab work done today. No past medical history on file. Past [...] GASTROPLASTY, performed by Jose Mai MD at [facility] MAIN OR ??? PRO UPPER GI ENDOSCOPY, BIOPSY 11/16/2011 EGD WITH BIOPSY performed by ALISA RICHARDS at [facility] ENDOSCOPY ??? PRO UPPER GI ENDOSCOPY, DIAGNOSTIC N/A 11/04/2015 EGD, UPPER GI ENDOSCOPY performed by Kisha Doss MD at [facility] ENDOSCOPY ??? PRO UPPER GI ENDOSCOPY, DIAGNOSTIC N/A 01/04/2016 ENDOSCOPY, UPPER GI, DIAGNOSTIC, WITH OR WITHOUT SPECIMENS performed by Jose Mai MD at [facility] MAIN OR ??? TUBAL LIGATION ??? UPPER GI ENDOSCOPY, EXAM 11/16/2011 UPPER GI ENDOSCOPY performed by ALISA RICHARDS at [facility] ENDOSCOPY Social History Social History ??? Marital status: Spouse name: N/A ??? Number of children: N/A ??? Years of education: N/A Occupational History ??? disabled Social History Main Topics ??? Smoking status: Never Smoker ??? Smokeless tobacco: Never Used ??? Alcohol use No ??? Drug use: No ??? Sexual activity: Not on file Other Topics Concern ??? Not on file Social History Narrative ROS: HEENT, GI, /Renal, Psych, Card, Pulm, Endo, Heme, Immun, Neuro: negative Examination: Ht 160 cm (5' 3) Wt 79.8 kg (176 lb) BMI 31.18 kg/m2 female in no acute distress, comfortable. She was well oriented and asked appropriate questions throughout the visit. Abdomen: 2 tiered abdominal pannus effect with hooding over the umbilical remnant No obvious hernia Healed laparoscopic port incisions active sub pannus intertrigo Grade 2: Panniculus extends to cover the genitalia Grade 3: Panniculus extends to cover the upper thigh Impression: Martha Benoit is a suitable candidate for panniculectomy which would likely correct herphysical symptomatology. I explained the increased risk of delayed healing due to the patient beingdiabetic. We discussed that it would be ideal to do surgery when the patient's A1C is closer to 7. The patient will continue with her A1C lab test today. I explained that she may schedule 1 month outfor surgery. The patient is understanding that if her A1C is high today than surgery may need to berescheduled. We talked about the scars and risks from panniculectomy. I discussed the nature of thepanniculectomy surgery. We discussed potential risks and complications which include but are not limited to pain, bleeding, infection, scarring, asymmetry, hematoma, seroma, poor cosmetic outcome, failure of procedure, possible need for revision, damage to adjacent structures. She has been [facility]with the [facility] patient information brochure, as well as their standard informed consent documents onboth abdominoplasty, and panniculectomy. She has expressed a desire to proceed with surgical correction. I feel strongly that she will gain significant symptom relief and avoid further intertrigo following surgery. Surgical consent was signed. We have obtained photographs today. Insurance Guidelines [X] Pannus grade 2 or higher [X] Rashes; prescribed and documented treatment for any rashes that don???t respond to 3 - 6 monthsof treatment. [X] If the weight has been lost due to gastric bypass, it must be 18 months s/p bariatric surgery [ ] Patient must be at goal weight and stable 6 months Based on this, we will equest insurance pre-determination . I will communicate my recommendations to Nanda Read MD. Plan: Diabetes control A1C lab test today Schedule for panniculectomy surgery Surgical Grid: Surgeon: Dr. Rosenthal Duration: 2.5 hours +1 night over Timeframe: In 1 month Coordinated with: None Procedure: Panniculectomy CPT: 16553 Surgical site: Abdomen Side: N/a Anesthesia: General Follow up: 10-14 days with AEE H&P: With PCP Jono Phillips am acting as scribe for Dr. Rosenthal. All work documented was performed by Dr. Rosenthal. ???I performed the above scribed service and agree with the accuracy of the note?? CHETAN ROSENTHAL MD * Jacquelyn Sincliar LPN - 04/27/2017 9:45 AM EDT Pre-Op Teaching for Surgery Surgery: abdomen Written and verbal pre-operative instructions were given and reviewed with patient. Patient was advised to discontinue use of NSAIDS and aspirin products 14 days prior to surgery unless otherwise advised by patient's PCP/Technical Marketing Engineer for cardiac symptoms, to perform the pre-op scrub, and coordinate ride home following surgery. Smoking status and medications were further reviewed to rule out/address current use of Nicotine, Coumadin, Plavix, Estrogen or Tamoxifen. Photos were taken Patient was told to call the clinic for any questions or concerns prior to surgery. documented in this encounter Plan of Treatment Upcoming Encounters Date Type Department Care Team (Late st Contact Info) Description 02/19/2025 9:00 AM EDT TH Visit (TeleHealth) [place] [address] Wyatt Higgins MD [facility] [place] [address] documented as of this encounter Procedures Procedure Name Priority Date/Time Associated Diagnosis Comments PANNICULECTOMY Routine 04/27/2017 10:21 AM EDT documented in this encounter Results * (ABNORMAL) Hemoglobin A1c (04/27/2017 11:12 AM EDT) Hemoglobin A1C 6.5(H) 4.3 - 5.6 % [facility] [...] 36: Suppl. 1, S67-74 Est Avg Gluc 140 mg/dL [facility] Comment: eAG [...] are available on the ADA website. Maurice DM, Marion J, Miriam R, et al. ??Translating the A1C assay into estimated average glucose values. ??Diabetes Care 2008:31(8):3186-1858. Blood specimen (specimen) 04/27/2017 11:12 AM EDT 04/27/2017 11:19 AM EDT Narrative Resulting Agency Comment Spec In Lab Chetan Rosenthal MD CHEMISTRY ORDERABLES [facility] [place] [address] documented in this encounter Visit Diagnoses Diagnosis Abdominal pannus Localized adiposity documented in this encounter Care Teams Mold Release Worker Relationship Specialty Start Date End Date Nanda Read MD [facility] [address] [place] [address] PCP - General 09/14/10 06/06/18 documented as of this encounter
--- OUTSIDE RECORDS SUMMARY | 2024-05-15 11:11 | XMS_ITS | Encounter Summary ---
Author Organization [facility] [place] [address] Care Team Providers Care Inter Fold Roll Cutter Name Role Phone Nanda Read MD Primary Care Provider [phone] Encounter Details Date Type Department Care Team (Late st Contact Info) Description 07/05/2016 1:00 PM EDT Office [place] [address] Judith Reinoso MD [facility] [place] [address] Type 2 diabetes, controlled, with neuropathy Social [...] Sign Reading Time Taken Comments Blood Pressure 122/67 07/05/2016 12:42 PM EDT Pulse 85 07/05/2016 12:42 PM EDT Temperature - - Respiratory Rate - - Oxygen Saturation - - Inhaled Oxygen Concentration - - Weight 85.7 kg (189 lb) 07/05/2016 12:42 PM EDT Height 160 cm (5' 3) 07/05/2016 12:42 PM EDT Body Mass Index 33.48 07/05/2016 12:42 PM EDT documented in this encounter Patient Instructions * Patient Instructions* Judith Reinoso MD - 07/05/2016 1:00 PM EDT Plan: 1. Medication: Adjustment of diabetes treatment regime: To cont 70/30 mix 10-30u qam and qpm. She is allow to titrate the dose by 2u if needed to keep BG at target of 90-180 range. Ok to use Humalog pen sliding scale as needed but to start only if BG>200 while on 70/30 mix based on 1u:20 BG ratio. To cont glipizideER 10 mg qd/bid, metformin 500 mg qd/bid (could not tolerate the higher dose or swallowing pills well) To cont invokana 100 mg qd To resume vitamin D 50,000 iu 1-2x/week 2. To continue all other medications, vitamin supplements as instructed,and healthy diet to keep wtdown further 3. Monitoring: to check FSBG before each meal and at bedtime. Target BG 90-150 while fasting and 80-180 pre-meal during daytime Target A1c ~7% for this patient while on insulin 4. Lab: Already checked after lab after the visit as above 5. RTC: Next visit in 6 months (for 12 mo post gastric bypass). Will check lab before next visit for HbA1c, BMP, 25vitamin D, dLDL and annual urine microalbumin/Cr ratio as planned. documented in this encounter Progress Notes * Judith Reinoso MD - 07/05/2016 1:00 PM EDT Endocrine Clinic Name: [facility] : 1965 Date: 07/05/2016 PCP: NANDA READ MD Provided by: Judith Reinoso MD Reason for visit: Follow-up diabetes s/p recent bariatric surgery with Dr. Mai on 01/04/16 with wt lost of 33 lbs quickly after the surgery Diabetes treatment regimen: 70/30 10-30 u 2x/day and not using Humalog sliding scale p.r.n for correction of high BG>180 Also, metformin 500 mg only in AM, glipizideER 10 mg qAM (instead of bid due to swallowing issue) and already resumed Invokana 100 mg qd due to some yeast infection under her breast (not UTI). FSBG: average 150 over the past 2 weeks, ranging between 100s- 200s mg/dl Most recent HA1c: pending today (was 8.4% on 01/05/16, 11/03/15 (was 8.5% on 11/03/15, 7.6% on 03/05/15with her PCP), Hypoglycemia during the interval time: some low BG with symptoms Diet: low fat/low carb diet Exercise: walking Complications: no changes during the interim. Prevention: same as last visit recently. She could not swallow pills well but at least taking all her meds in AM as instructed and already resumed 70/30 mix BID low dose with better BG control but still some up and down as expected with themix insulin. Her insurance covered for 70/30 mix well so she does not want to change to other new insulin with less BG fluctuation and tried to eat better. She las lost wt quickly from 250 lbs to 216 lbs after 2 months and now 189 lbs at 6 mo post bariatric surgery which is excellent. She will see Dr. Mai and Cathy Dillon WELFARE DIRECTOR again today as well. She is better from her [...] to slightly low at 28-29 (nl 30-100) early this year when she tapered vitamin D to weekly and already increased it back to 50,000 iu 2x/week as rec'd by bariatric team before the surgery. She recently increased Graham multivitaminto 2 tab daily but this will not have enough iron or vitamin D for her need (pending for the result today). Denies any changes in vision, no CP, SOB, GI issues, leg swelling or foot ulcer but thinnerscalp hairs. She already had pretty normal dilated eye exam in with only cataract ou (mild). ROS: Please [...] deficiency E61.1 ??? Memory loss R41.3 ??? Nausea and vomiting in adult patient R11.2 Current Outpatient Prescriptions on File Prior to Visit Medication Sig Dispense Refill ??? INVOKANA 100 [...] Take 2 tablets by mouth daily. ??? glipiZIDE (GLUCOTROL) 10 mg Tablet Take 10 mg by mouth 2 times daily (before meals). ??? insulin aspart protamine-insulin aspart 70/30 (NOVOLOG MIX 70-30 FLEXPEN) Insulin Pen Inject 15-30 Units subcutaneously 2 times daily (with meals). 45 mL 3 ??? Insulin Syringe-Needle U-100 (BD INSULIN SYRINGE ULT-FINE II) 1 mL 31 x 5/16 Syringe Inject 1 each subcutaneously 3 times daily as needed. 100 Syringe 12 ??? ondansetron (ZOFRAN-ODT) 4 mg Tablet, Rapid Dissolve Take 1 tablet by mouth every 8 hours as needed for Nausea (Attempt this one prior to IV administration. May use 4mg of IV if no relief within 30 minutes.). 20 tablet 0 ??? prochlorperazine (COMPAZINE) 5 mg Tablet Take 1 tablet by mouth every 6 hours as needed for Nausea. 30 tablet 0 ??? LORazepam (ATIVAN) 0.5 mg Tablet Take 1 tablet by mouth every 6 hours as needed for Anxiety. 5 tablet 0 ??? Insulin Lispro (HUMALOG) 100 unit/mL Insulin Pen Inject 2-12 Units subcutaneously 4 times dailyas needed. 15 mL 0 ??? ursodiol (ACTIGALL) 300 mg Capsule Take 1 capsule by mouth 2 times daily for 180 days. Start at2 weeks post op on 01/17. Take until 07/16/16 to prevent gallstones 180 tablet 1 ??? omeprazole (PRILOSEC) 20 mg Capsule, Delayed Release(E.C.) Take 1 capsule by mouth daily for 270 days. 90 capsule 2 ??? Cyanocobalamin 1,000 mcg Tablet, Sublingual Place 1 tablet under the tongue daily. 90 tablet 3 ??? pravastatin (PRAVACHOL) 20 mg Tablet Take 20 mg by mouth daily. ??? levothyroxine (SYNTHROID) 25 mcg tablet TAKE 1 TABLET BY MOUTH DAILY 90 tablet 4 ??? lidocaine (LIDODERM) 5 %(700 mg/patch) Place [...] 1/2 mL 30 x 5/16 Syrg by [facility]Non-Drug; Combo Route) route 2 times daily. Using [...] Mother ??? Diabetes Father Physical exam BP 122/67 Pulse 85 Ht 160 cm (5' 3) Wt 85.7 kg (189 lb) BMI 33.48 kg/m2 Appearance: Mildly obese, pleasant, NAD, looks better today but having thinner scalp hairs today HEENT: PERRLA, EOMI Neck: no goiter or lymphadenopathy Cardiac: normal S1, S2, no murmur Chest: CTA, no wheeze or crackle. Abdomen: benign, NT, ND Ext: no pitting edema no foot ulcer Neuro: mild weakness, depressed reflexes Outside lab 03/05/15 at PCP office A1c 7.6% c-peptide 2.9 (was 1.5 in and 3.3 in 2008) TSH 2.55 25vitamin D 28 L TC 205, LDL 138, TG 161, HDL 35 Normal CMP Urine microalb/Cr -neg Recent labs Ref. Range 01/25/2016 14:49 WBC Latest Ref [...] 65 - 99 mg/dL 218 (H) Assessment: Diabetes Type II - suboptimal with A1c 7.6-8.5% range with good c-peptide 2.9 from her own insulin production (but still not enough for her need due to insulin resistance and obesity), and now ~ 6 moafter gastric bypass surgery with significant wt loss down 60 lbs from 250 to 189 lbs. She will seeDrEdvin Mai & team this pm for post-hospital check up as well. She is very pleased with her wt loss and wants to lose more wt further after gastric bypass for her diabetic neuropathy. She has insulin resistance and required U-500 0.12 ml (60u) bid along with 3 oral agents before thesurgery and now after the surgery, she only needs 70/30 mix insulin 10-30u bid. She could not swallow pills well [...] as a booster dose for her neuropathy Plan: 1. Medication: Adjustment of diabetes treatment regime: To cont 70/30 mix 10-30u qam and qpm. She is allow to titrate the dose by 2u if needed to keep BG at target of 90-180 range. Ok to use Humalog pen sliding scale as needed but to start only if BG>200 while on 70/30 mix based on 1u:20 BG ratio. To cont glipizideER 10 mg qd/bid, metformin 500 mg qd/bid (could not tolerate the higher dose or swallowing pills well) To cont invokana 100 mg qd To resume vitamin D 50,000 iu 1-2x/week which may help with her hair loss and body aches. She has been taking 2 of Graham MVI daily and could not tolerate iron [...] Already checked after lab after the visit as above 5. RTC: Next visit in 6 months (for 12 mo post gastric bypass). Will check lab before next visit for HbA1c, BMP, 25vitamin D, dLDL and annual urine microalbumin/Cr ratio as planned. We have reviewed our plan outlined above with the patient and patient verbalized understanding. Allquestions were answered and most of the time was spent on counseling about medication adjustment and proper use of insulin, diet, exercise, cardiac risk prophylaxis, the diagnostic and therapeutic decisions, and coordination of care. Judith Reinoso MD, PhD, FACE CC: NANDA READ MD documented in this encounter Miscellaneous Notes * Addendum Note - Judith Reinoso MD - 01/04/2017 1:51 PM EDTAddended by: JUDITH REINOSO on: 01/04/2017 01:51 PM Modules accepted: Orders documented in this encounter Plan of Treatment Upcoming Encounters Date Type Department Care Team (Late st Contact Info) Description 02/19/2025 9:00 AM EDT TH Visit (TeleHealth) [place] [id number] Wyatt Higgins MD [facility] [place] [address] documented as of this encounter Results * U Albumin/Cre Ratio (01/30/2017) Urine specimen (specimen) 01/30/2017 Judith Reinoso MD URINE ORDERABLES * (ABNORMAL) Basic Metabolic Panel (non-fasting) (01/30/2017) Glucose Lvl 244(SECURITY GUARD AL/ABN) BUN 9(External Lab) Creatinine 0.40(EXTER NAL/ABN) Sodium 141(Qc Analyst al Lab) Potassium 4.2(Qc Analyst al Lab) Chloride 104(Qc Analyst al Lab) Chol, Total 166(Qc Analyst al Lab) Blood specimen (specimen) 01/30/2017 Judith Reinoso MD CHEMISTRY ORDERAB LES * (ABNORMAL) Hemoglobin A1c (01/30/2017) Hemoglobin A1C 8.1(SECURITY GUARD AL/ABN) Blood specimen (specimen) 01/30/2017 Judith Reinoso MD CHEMISTRY ORDERAB LES * C-peptide (07/05/2016 2:18 PM EDT) C-Peptide 4.2 1.1 - 4.4 ng/mL [facility] Comment: Test Performed by: [place] [address] [employer] Area Supervisor: Jose Sands II, M.D., Ph.D. Blood specimen (specimen) 07/05/2016 2:18 PM EDT 07/06/2016 8:49 AM EDT Narrative Resulting Agency Comment Spec In Lab Judith Reinoso MD CHEMISTRY ORDERAB LES [facility] [place] [address] documented in this encounter Visit Diagnoses Diagnosis Type 2 diabetes, controlled, with neuropathy Type II or unspecified type diabetes mellitus with neurological manifestations, not stated as uncontrolled documented in this encounter Care Teams Inter Fold Roll Cutter Relationship Specialty Start Date End Date Nanda Read MD [facility] [address] [place] [address] PCP - General 09/14/10 06/06/18 documented as of this encounter
--- OUTSIDE RECORDS SUMMARY | 2024-05-15 11:11 | XMS_ITS | Encounter Summary ---
Author Organization [facility] [place] [address] Care Team Providers Care Crew Scheduler Name Role Phone Nanda Read MD Primary Care Provider Reason for Visit * Reason Comments Follow-up Bariatric Surgery Pr richard post surgery follow up Encounter Details Date Type Department Care Team (Late st Contact Info) Description 07/05/2016 2:00 PM EDT Office Visit [place] [address] Cathy Dillon, MMI TEACHER [facility] [place] [address] Disorder of iron metabolism; [...] Instructions * Patient Instructions* Taylor Vance - 07/05/2016 2:00 PM EDT [facility] Admin coordinator Rosey: [phone] Dietitian: [phone] Surgeons/ nurse practitioner: [phone] Nurse line: [phone] Your excess body weight lost: 48.7% Testing:lab next visit Next visit: 6 months to coordinate with Dr Reinoso Routine visits are done at 4.8,12, 18 and 24 months after surgery, and yearly thereafter. Please call [phone] if you do not receive an appointment by 3-4 weeks prior to the expected visit. Medications: 1. Consider starting calcium and B12 supplements 2. Will send prescription for 1 dose of diflucan for rash 3. Further recommendations pending labwork. We will send a list of lactose free products. Vitamins: The following vitamins are recommended: ??? [...] periods, iron deficiency or anemia. Nutrition recommendations: Increase protein intake, aim for 3 oz of protein at every meal and consume high protein snacks. Avoid candy and high sugar foods. - Your Daily Goals: ??? 1,000-1,200 calories per day (300 calories per meal, 100 calories per snack, 1-2 snacks per day) ??? 60 grams of protein per day (20 grams per meal) ??? 48-64 oz of non-caloric and hydrating fluids per day (6-8, 8 oz cups) ??? Do not drink with meals- pushes food through more quickly, can cause upset stomach Activity: ??? Aim for 30 minutes of exercise daily, 5 days a week of both cardio and strength training exercises. Alcohol: should be used sparingly, no more than one drink per occasion. Alcohol is a source of empty calories and can cause ulcers and vitamin and mineral deficiencies. Studies have noted that there is an increased risk of alcohol dependence after bariatric surgery. Anti-inflammatory medications such as Advil, Aleve, Excedrin, [...] of every month from 1-[address] [facility]- no registration required Internet resources: www.FitVia www.Tictail www.AthleteTrax www.SameDayPrinting.com (doug Vera) [email or web address]gery Bariatric surgery apps- [facility] Post-lexy Books & Magazines: - Recipes for Life After Weight Loss Surgery by Ashli Wiseman - Shrink Yourself by Dr Stephen Dial - Nutrition Action Health Letter subscribe at [email or web address] - Eating Well - Cooking Light documented in this encounter Progress Notes * Cathy Dillon - 07/05/2016 2:00 PM EDT Reason for visit: follow up S/P laparoscopic Janeth-en-Y gastric bypass on 01/04/16 Complications summary: Early Prolonged hospital stay. Admitted to [facility] on 01/24/16 with nausea and vomiting, failure to progress diet. Transfer to [facility] on 01/25/16 Late none Visits summary: Compliance with scheduled BSP follow-up: poor Bariatric surgery graduates support group attendance: none Pre-op 11/03/15 Wt (lbs) 247 BMI 43.7 WT visit #2 249 HT:63 Introductory meeting date: Post-op Visit date Wt (lbs) BMI %EBW [...] prealbumin 23 A1c 7.4 C peptide 4.2 Next visit 6 months to coordinate with Endo visit Screening/other: Date Evaluation Results 05/2016 Primary care 11/04/15 EGD Normal esophagus. Erosive gastropathy. Findings unchanged from previous ??endoscopies. I don't think these non specific erosions should preclude bariatric surgery. Normal examined duodenum. Path: Endoscopic biopsy - Gastric antral gland mucosa with nonspecific reactive gastropathy and??focal intestinal metaplasia. No H. pylori-like microorganism is seen. 09/23/14 Colonoscopy 4 polyps ascending and descending colon, rectum- all tubular adenomas 03/24/15 Pap negative 08/07/14 Mammogram ACR category 1- advised to update - DEXA Problem List ??? Preoperative Class IV obesity BMI 43.7, S/P gastric bypass ??? Denies hypertension, prescribed lisinipril 2.5 mg , likely for renal protection: off lisinoprilpost surgery ??? Type 2 diabetes diagnosed in 1993, chronic poor control, untreated until 2005: improved, today's A1c is 7.4, remains on exenatide, glipizide, invokana, Metformin, off U 500 insulin. Is also taking novalog and humalog - preoperative treatment: exenatide, glipizide, U 500 insulin BID, Invokana, metformin - Complications: retinopathy, peripheral autonomic neuropathy, sees bell clerk for calluses, declines flu shot ??? GERD and hiatal hernia: Asymptomatic on omeprazole 20 mg daily ??? Hyperlipidemia treated with pravastatin ??? Lower extremity edema, treated with lasix on 40 mg ~1 a week ??? Musculoskeletal issues: A. Chronic foot pain-s/p heel spur surgeries ??? Opiate dependence for chronic pain due to neuropathy, S/P [facility] evaluation: dose unchanged post-surgery ??? Diabetic retinopathy ??? Peripheral neuropathy-severe generalized: no improvement with weight loss ??? Acquired hypothyroidism ??? Vitamin D deficiency with PTH elevation ( with normal calcium on 11/03/15) preoperatively: resolved, current treatment with vitamin D 50,000 units weekly ??? Iron deficiency preoperatively: resolved, intolerant to iron, is taking multi with iron ??? Low B12 level preoperatively: resolved ??? Memory impairment, S/P evaluation by neurology 2014 A. MRI brain done on 07/01/14: The ventricles and sulci are proportional size.?? No focal areas of atrophy ?? identified ; specifically the medial temporal lobes appear normal. .?? There are ??several small foci of signal alteration within the periventricular white ??matter. These likely represent very mild small vessel ischemic change.?? No ??diffusion weighted abnormalities. Midline structures are unremarkable.? Impaired functional status ??? History of HPV, S/P LEEP and colposcopy, last March 2014 ??? History of kidney stones-bilateral. remote stopped after using pepper per her report, was told by a nurse A. History of multiple cystoscopies and stent placements, initially in 1987 ??? Less than ideal compliance to medications and overall health care: improved ??? Seborrheic keratosis ??? History of tubular adenomas 2014 History of chest pain A. Stress ECHO done on 08/15/07: 1) Diagnostic negative Dobutamine stress echo to peak heartrate 160/min (90% age predicted maximum heartrate) and rate- pressure product 15.5 kilotorr/min without symptoms or evidence of ischemia. Hypotension. 67 mmHg outflow gradient during chemical stress, and 4 beat marilin AIVR. ECHO=No segmental motion abnormalities, LV EF 70%. STRESS: No chest symptoms to peak dose Dobutamine 30 ug.kg-.min- No ischemic changes. ECHO Normal biventricular systolic function, with no segmental abnormalities, with LV EF 70% by visual estimate, with LVIDd=43mm and LVIDs=26mm. Trace tricuspid regurgitation, inadequate for PA pressure estimation, without right atrial enlargement. Past Surgical History Procedure Laterality Date ??? [...] GI ENDOSCOPY performed by ALISA RICHARDS at [facility] Allergies Allergen Reactions ??? Codeine Phosphate Nausea And Vomiting Medications 07/05/16 1505 Medication Sig Taking? glipiZIDE (GLUCOTROL XL) 10 mg Tablet Extended Rel 24 hr Take 1 tablet by mouth 2 times daily. Yes ergocalciferol (ERGOCALCIFEROL) 50,000 unit Capsule Take 1 capsule by mouth every 3 days. Yes INVOKANA 100 mg Tablet TAKE 1 TABLET BY MOUTH ONCE DAILY Yes oxyCODONE-acetaminophen (PERCOCET) 10-325 mg Tablet Take 1 tablet by mouth every 4 hours as needed for Pain. Yes pediatric multivitamin with iron Tablet, Chewable Take 2 tablets by mouth daily. Yes insulin aspart protamine-insulin aspart 70/30 (NOVOLOG MIX 70-30 FLEXPEN) Insulin Pen Inject 15-30 Units subcutaneously 2 times daily (with meals). Yes omeprazole (PRILOSEC) 20 mg Capsule, Delayed Release(E.C.) Take 1 capsule by mouth daily for 270 days. Yes baclofen (LIORESAL) 10 mg tablet Take 10 mg by mouth 4 times daily. Yes gabapentin (NEURONTIN) 300 mg Capsule Take 300 mg by mouth 3 times daily. Insulin Syringe-Needle U-100 (BD INSULIN SYRINGE ULT-FINE II) 1 mL 31 x 5/16 Syringe Inject 1 eachsubcutaneously 3 times daily as needed. Insulin Lispro (HUMALOG) 100 unit/mL Insulin Pen Inject 2-12 Units subcutaneously 4 times daily as needed. Patient not taking: Reported on 07/05/2016 ursodiol (ACTIGALL) 300 mg Capsule Take 1 capsule by mouth 2 times daily for 180 days. Start at 2 weeks post op on 01/17. Take until 07/16/16 to prevent gallstones pravastatin (PRAVACHOL) 20 mg Tablet Take 20 mg by mouth daily. levothyroxine (SYNTHROID) 25 mcg tablet TAKE 1 TABLET BY MOUTH DAILY Patient not taking: Reported on 07/05/2016 lidocaine (LIDODERM) 5 %(700 mg/patch) Place 1 patch onto the skin every 12 hours as needed. folic acid (FOLVITE) 1 mg tablet Take 1 mg by mouth daily. metFORMIN (GLUCOPHAGE) 500 mg tablet Take 500 mg by mouth 2 times daily (with meals). POTASSIUM CHLORIDE (KLOR-CON 10 ORAL) Take 10 mEq by mouth 2 times daily. Insulin Syringe-Needle U-100 (INSULIN SYRINGE) 1/2 mL 30 x 5/16 Syrg by [facility].(Non-Drug; Combo Route) route 2 times daily. Using with insulin bid Subjective. Patient concerns at today's visit: she is intolerant to iron, has constipation, reports miralax noteffective. She is please with the improvement to her diabetes. She reports eating every 2 hours, very small amounts, is not tracking. Meat can be difficult, but can tolerate steak. She eats beef jerky. She is intolerant to chicken and turkey, which are common intolerances as well as pasta, which is an expected intolerance and not recommended due to low nutrient value. She is eating protein generally once a day, generally not at night, will only eat a cucumber. She has had some difficulty with diarrhea with cheese. She is drinking lots of crystal light. Shehas a few skiddles a few times a week. She is bothered by painful abdominal skinfold rashes and uses a prescription yeast cream Review of Systems (negative if left blank): Constitutional: [] fatigue [] pica Neurologic: [] paresthesias GI: [] GERD, dysphagia [+] dumping after eating ice cream [] abdominal pain, hernia [] nausea [+] vomiting only one recent episode after eating cucumbers [] blood in stool [] chronic diarrhea/ constipation DIRECTOR OF NURSES REGISTRY: [] LMP: [] control [] menorrhagia [+] post menopause Skin: [+] redundant skin abdomen [+] chronic rashes Heme/Lymph: [] excessive bruising [] blood donor in past year Psychiatric [] mental health concerns Health-related habits/other: Exercise/activity level: as per RD note Tobacco: none Alcohol: none Employment/social: disabled/ single Dietary history: See dietitian note. Objective: General: 50 y.o. year-old female looks well, ambulatory with walker, appears in good spirits Heart: Lungs: CTA without wheezing Abdomen: soft, non-tender. Trocar sites well-healed, without evidence of hernia. Redundant abdominal pannus with active intertrigo Extremities: no edema Vital signs: Vitals 07/05/2016 SYSTOLIC 122 DIASTOLIC 67 PULSE 85 Height (Chinese) 5' 3 Height (Metric) 160 cm Weight (Chinese) 189 lbs Weight (Metric) 85.73 kg BODY MASS INDEX 33.48 kg/m2 Today's lab data: Results for JO JONES ( ) Ref. Range 07/05/2016 14:18 07/05/2016 14:21 WBC Latest Ref Range: 4.0 - 9.5 x10(3)/mcL 12.0 (H) RBC Latest Ref Range: 4.00 - 5.21 x10(6)/mcL 5.17 Hemoglobin Latest Ref Range: 11.7 - 15.5 gm/dL 14.0 Hematocrit Latest Ref Range: 35.7 - 45.8 % 43.5 MCV Latest Ref Range: 82.6 - 94.4 fL 84.1 MCH Latest Ref Range: 27.1 - 32.0 pg 27.1 MCHC Latest Ref Range: 31.7 - 35.0 gm/dL 32.2 RDWSD Latest Ref Range: 37.0 - 46.0 fL 42.2 RDWCV Latest Ref Range: 11.5 - 14.1 % 13.6 Platelets Latest Ref Range: 145 - 357 x10(3)/mcL 250 MPV Latest Ref Range: 7.6 - 12.9 fL 12.5 nRBC % Auto Latest Units: % 0.0 nRBC Abs Auto Latest Ref Range: 0.000 - 0.000 x10(3)/mcL 0.000 Sodium Latest Ref Range: 135 - 145 mmol/L 143 Potassium Latest Ref Range: 3.5 - 5.0 mmol/L 4.1 Chloride Latest Ref Range: 98 - 107 mmol/L 101 CO2 Latest Ref Range: 22 - 31 mmol/L 25 Anion Gap Latest Ref Range: 5 - 15 mmol/L 17 (H) BUN Latest Ref Range: 8 - 18 mg/dL 9 Creatinine Latest Ref Range: 0.70 - 1.20 mg/dL 0.55 (L) Estimated GFR Latest Ref Range: >=60 >60 Glucose Lvl Latest Ref Range: 65 - 199 mg/dL 117 Calcium Latest Ref Range: 8.5 - 10.5 mg/dL 9.3 Hemoglobin A1C Latest Ref Range: 4.3 - 5.6 % 7.4 (H) Est Avg Gluc Latest Units: mg/dL 166 Total Protein Latest Ref Range: 6.1 - 8.0 gm/dL 7.6 Albumin Latest Ref Range: 3.2 - 5.2 gm/dL 3.8 Total Bilirubin Latest Ref Range: 0.2 - 1.3 mg/dL 0.3 Bili, Direct Latest Ref Range: 0.0 - 0.3 mg/dL 0.1 Alk Phos Latest Ref Range: 40 - 104 unit/L 105 (H) AST Latest Ref Range: 0 - 30 unit/L 18 ALT Latest Ref Range: 0 - 30 unit/L 18 Ferritin Latest Ref Range: 30 - 400 ng/mL 54 Folate Lvl Latest Ref Range: 4.8 - 24.2 ng/mL 18.6 Iron Latest Ref Range: 30 - 150 mcg/dL 57 TIBC Latest Ref Range: 250 - 450 mcg/dL 298 Iron Saturation Latest Ref Range: 20 - 50 % 19 (L) Vitamin B-12 Latest Ref Range: 207 - 974 pg/mL 416 25-OH Vit D Total Latest Ref Range: 30 - 100 ng/mL 32 Vit B1 Lvl WB Latest Ref Range: 70 - 180 nmol/L 213 (H) Prealbumin Latest Ref Range: 20 - 40 mg/dL 23 PTH Latest Ref Range: 15 - 65 pg/mL 56 C-Peptide Latest Ref Range: 1.1 - 4.4 ng/mL 4.2 Alb/Cr Ratio, Random Latest Ref Range: 0 - 29 mcg/mg Cr 7 U Albumin Conc, Random Latest Units: mg/L 3.7 U Creatinine Latest Units: mg/dL 54 Assessment: S/P gastric bypass, with loss of 48% of excess body weight. Plan: ?? Congratulated on her healthy lifestyle efforts ?? rx for diflucan 150 mg x 1 dose, can follow up with Dr. Read if further rashes ?? Next BSP follow up: 6 months to coordinate with endocrinology visit ?? Next labwork: next visit ?? Additional vitamin and mineral supplement recommendations (*in addition to routine bariatric supplements, as noted below): calcium citrate with D BID, vitamin D 50,000 units 1-2x a week per Dr Reinoso. ?? Advised to call with unexplained abdominal pain, prolonged nausea, vomiting or inability to hydrate, questions or concerns ?? dietary/ exercise recommendations per RD. Recommend increasing protein calorie intake ?? advised that Ursodiol can be discontinued at 6 months post-operatively She was provided with a Bariatric Program [...] on a more frequent basis. *Supplement recommendations: Complete multivitamin with minerals twice a day, B12 500 mcg once a day, calcium citrate 600 mg/400units vitamin D twice a day, iron (ferrous fumarate, polysaccharide iron taken with vitamin C 250 mg once a day) for menstruating females or those with BOO. Labwork: Hemogram, ferritin, iron (transferrin) saturation, iron, folate, Vitamins B1, B12, D (25 hydroxy only), Intact PTH and comprehensive metabolic profile at 4, 12, 18 and 24 months, and yearly.Prealbumin is done at 4 and 12 months and PRN. If labwork is done by the primary youth care professional: please send a copy to the Bariatric Surgery Program, General Surgery Clinic, [facility] Questions regarding [facility] Bariatric Surgery Program patients: please call Denny Dillon APRN at [phone] or [phone] [phone]. E-mail: * Taylor Vance - 07/05/2016 2:00 PM EDT Bariatric Surgery Program Nutrition Progress Note Encounter Type: follow up SUBJECTIVE: Topics Discussed/Patient Concerns: ?? No concerns, she has noticed she is lactose intolerant and can not tolerate pasta. The intolerances do not bother her. OBJECTIVE: Date of Bariatric Surgery: 01/04/16 Type of Bariatric Surgery: Laparoscopic Janeth-en-Y Gastric Bypass Weight History: Date Weight (lbs) HT BMI Comments Summer 2014 260# Highest Weight (pt reported) 07/01/14 249# 63 44.1 Initial program weight 11/03/15 247# 63 43.7 1st pre-op visit 01/04/16 249# EWL % 44.1 Surgery 03/09/16 216# 26.1% 38.2 2 months post-op 07/05/16 189# 48.7% 33.5 6 months post-op Goal weight: none, rough idea is [...] on nieces and nephews when her sister past away, has 12 kids in total. Lives with one daughter and one son (nephew) in the house, no pets. On disability. Son (who had surgery) is supportive of her getting bariatric surgery. Related medical history: Diabetes type 2- on insulin and Obesity Class III Vitamin/Mineral Supplements (reported by patient): Supplement Type Brand/Form Dosage/Amount Frequency Comments Multivitamin [place]'s chewable 1 Twice daily Calcium none Vitamin B12 none Iron rx Took a couple times but constipates her Vitamin D3 rx 50,000 IU 1-2x/ week Tracking Intake: none Daily Oral Intake: Breakfast 1 Egg Or 1/4 cup plain oatmeal w/ water or milk AM Snack [place] or 2-3 crackers or 3-4 squares of pineapple or grapes Lunch 1-2 oz steak (but difficult to eat) or 1/4-1/2 cup hamburger w/ chopped onions PM Snack Fruit or cucumbers Dinner 1 cabbage egg roll Or cucumbers Or popcorn Or filling of pot pie HS Snack Lettuce or cucumbers Protein/ grams per day: 20-30 grams Calories per day: 600-700 kcal Hydrating Fluids: 5-6 16.9 oz bottles of Crystal Light Soda: none ETOH: none Caffeine: None, once a month may try coffee but she doesn't like it Sweets: 3 skittles or 1 liquorice a couple times a week to get rid of sugar craving. Meals: 5-6 small meals/day. ?? Feels full/satisfied after eating: satisfied ?? Feels hungry []never [x]sometimes - once in awhile feels starving but there is nothing she wantsto eat []most of the time [] always ?? Drinks with meals: a couple sips, not a lot ?? Practices portion control: eyeballing portions, can tell by looking at something how much she can eat ?? Spends at least 20 minutes eating each meal: 20 minutes ?? Has had dumping syndrome: ice cream Foods/Symptoms: diarrhea ?? In the past month, pt has vomited/regurgitated: 1 month ago once she vomited after eating cucumber one night. Food Allergies/Intolerances: Chicken, turkey, broccoli, lactose, cottage cheese, and pasta. Exercise: Walking around doing errands. ASSESSMENT: Summary of Weight Loss: Patient's percent excess weight loss is 48.7% which is within the expected post- op bariatric surgery range. Weight down 27# x 4 months. Patient is not consuming high protein meals or snacks and is not meeting her protein goal. Reviewed some high protein foods for patient to try adding into her dietand recommend she aim for 3 oz of protein per meal. Patient is meeting fluid goal. Patient is not co mpliant with supplements, reviewed the importance of taking supplements to help prevent deficiencies. Patient does not have an exercise routine but she does walk around some during the day. NUTRITION INTERVENTION & MONITORING: ?? Provided support/encouragement and reinforced importance of meeting nutritional goals. ?? Reviewed nutrition and vitamin and mineral supplement recommendations (see patient instructions). ?? Written recommendations provided. Patient agreed with these and verbalized adequate understanding ?? Evaluation by nurse practitioner today documented in this encounter Plan of Treatment Upcoming Encounters Date Type Department Care Team (Late st Contact Info) Description 02/19/2025 9:00 AM EDT TH Visit (TeleHealth) [place] [address] Wyatt Higgins MD [facility] [place] [address] documented as of this encounter Results * Folate, serum (07/05/2016 2:18 PM EDT) Folate Lvl 18.6 4.8 - 24.2 ng/mL [facility] Blood specimen (specimen) 07/05/2016 2:18 PM EDT 07/05/2016 3:00 PM EDT Narrative Resulting Agency Comment Spec In Lab Jose Mai MD CHEMISTRY ORDERABLE S Performing Organization Address [facility] de Phone Number [facility] [place] [address] * (ABNORMAL) Vitamin B1, whole blood (07/05/2016 2:18 PM EDT) Vit B1 Lvl WB 213(H) 70 - 180 nmol/L [facility] Comment: INTERPRETIVE INFORMATION: Vitamin B1, Whole Blood This assay measures the concentration of thiamine diphosphate (TDP), the primary active form of vitamin B1. Approximately 90 percent of vitamin B1 present in whole blood is TDP. Thiamine and thiamine monophosphate, which comprise the remaining 10 percent, are not measured. Test developed and characteristics determined by [facility]. See Compliance Statement B: [email or web address]/CS Test Performed by: [facility] [address] [place] [id number] Blood specimen (specimen) 07/05/2016 2:18 PM EDT 07/05/2016 3:18 PM EDT Narrative Resulting Agency Comment Spec In Lab Jose Mai MD CHEMISTRY ORDERABLE S Performing Organization Address [facility] Co de Phone Number [facility] [place] [address] * Ferritin (07/05/2016 2:18 PM EDT) Ferritin 54 30 - 400 ng/mL [facility] Comment: Pediatric reference ranges not verified at [facility], interpret with caution. Reference ranges for females greater than 50 years of age approach values for men, i.e., 30-400 ng/mL. Blood specimen (specimen) 07/05/2016 2:18 PM EDT 07/05/2016 3:00 PM EDT Narrative Resulting Agency Comment Spec In Lab Jose Mai MD CHEMISTRY ORDERABLE S Performing Organization Address City/[facility]/ZIP Co de Phone Number [facility] [place] [address] * Prealbumin (07/05/2016 2:18 PM EDT) Prealbumin 23 20 - 40 mg/dL [facility] Comment: Prealbumin levels are generally lower in the pediatric population; adult concentrations are usually attained near puberty. Blood specimen (specimen) 07/05/2016 2:18 PM EDT 07/05/2016 3:00 PM EDT Narrative Resulting Agency Comment Spec In Lab Jose Mai MD CHEMISTRY ORDERABLE S Performing Organization Address [facility] Co de Phone Number [facility] [place] [address] * (ABNORMAL) Comprehensive metabolic panel (non-fasting) (07/05/2016 2:18 PM EDT) Glucose Lvl 117 65 - 199 mg/dL [facility] Comment:Diabetes: >=200 mg/d L plus symptoms BUN 9 8 - 18 mg/dL [facility] Creatinine 0.55(L) 0.70 - 1.20 mg/dL [facility] Comment: Please note that the pediatric reference intervals supplied above were not validated at [facility]. Results from pediatric patients should be interpreted in conjunction to the patient's age, height and muscle mass. Sodium 143 135 - 145 mmol/L [facility] Potassium 4.1 3.5 - 5.0 mmol/L [facility] Comment: Please note: ??Patients with WBC >100,000 may have falsely elevated Potassium levels. ??For accurate Potassium quantification in these patients send serum separator tube (gold top) for subsequent determinations. ??Contact the Clinical Chemistry Laboratory if there are any questions. Chloride 101 98 - 107 mmol/L [facility] CO2 25 22 - 31 mmol/L [facility] Anion Gap 17(H) 5 - 15 mmol/L [facility] Calcium 9.3 8.5 - 10.5 mg/dL [facility] Total Protein 7.6 6.1 - 8.0 gm/dL [facility] Albumin 3.8 3.2 - 5.2 gm/dL [facility] AST 18 0 - 30 unit/L [facility] ALT 18 0 - 30 unit/L [facility] Alk Phos 105(H) 40 - 104 unit/L [facility] Total Bilirubin 0.3 0.2 - 1.3 mg/dL [facility] Bili, Direct 0.1 0.0 - 0.3 mg/dL [facility] Estimated GFR >60 >=60 [facility] Comment: This estimated GFR (eGFR) [...] the following links into your internet browser. [email or web address] Blood specimen (specimen) 07/05/2016 2:18 PM EDT 07/05/2016 3:00 PM EDT Narrative Resulting Agency Comment Spec In Lab Jose Mai MD CHEMISTRY ORDERABLE S [facility] [place] [address] * (ABNORMAL) Hemogram (07/05/2016 2:18 PM EDT) WBC 12.0(H) 4.0 - 9.5 x10(3)/mcL [facility] RBC 5.17 4.00 - 5.21 x10(6)/[facility] Hemoglobin 14.0 11.7 - 15.5 gm/dL [facility] Hematocrit 43.5 35.7 - 45.8 % [facility] MCV 84.1 82.6 - 94.4 fL [facility] MCH 27.1 27.1 - 32.0 pg [facility] MCHC 32.2 31.7 - 35.0 gm/dL [facility] Platelets 250 145 - 357 x10(3)/[facility]OR[facility]ORY RDWSD 42.2 37.0 - 46.0 fL [facility] RDWCV 13.6 11.5 - 14.1 % [facility] MPV 12.5 7.6 - 12.9 fL [facility] nRBC % Auto 0.0 % [facility] nRBC Abs Auto 0.000 0.000 - 0.000 x10(3)/[facility] Blood specimen (specimen) 07/05/2016 2:18 PM EDT 07/05/2016 3:00 PM EDT Narrative Resulting Agency Comment Spec In Lab Jose Mai MD HEMATOLOGY ORDERABL ES [facility] [place] [address] documented in this encounter Visit Diagnoses Diagnosis Disorder of iron metabolism Other disorders of iron metabolism Status post bariatric surgery Bariatric surgery status Intestinal malabsorption, unspecified type documented in this encounter Care Teams Crew Scheduler Relationship Specialty Start Date End Date Nanda Read MD [facility] [address] [place] [address] PCP - General 09/14/10 06/06/18 documented as of this encounter
--- OUTSIDE RECORDS SUMMARY | 2024-05-15 11:11 | XMS_ITS | Encounter Summary ---
Author Organization [facility] [place] [address] Care Team Providers Care Reporting Analyst Name Role Phone MnuozRuth jerome Lilibeth JUAREZ Primary Care Provider + Reason for Visit * Reason Comments Medication Refill Encounter Details Date Type Department Care Team (Late st Contact Info) Description 04/07/2017 [place] [phone] Cathy Dillon APRN [facility] [place] [address] Social History Tobacco Use Types Packs/Day Years [...] AM EDT TH Visit (TeleHealth) [place] [phone] Wyatt Higgins MD [facility] [place] [address] documented as of this encounter Visit Diagnoses Not on filedocumented in this encounter Care Teams Reporting Analyst Relationship Specialty Start Date End Date Ruth Munoz, [address] [place] [address] PCP - General Family Medicine 02/05/19 documented as of this encounter
--- OUTSIDE RECORDS SUMMARY | 2024-05-15 11:11 | XMS_ITS | Encounter Summary ---
Author Organization [facility] [place] [address] Care Team Providers Care Grass Farmer Name Role Phone MunozRuth jerome Lilibeth JUAREZ Primary Care Provider + Reason for Visit * Reason Comments Medication Refill Encounter Details Date Type Department Care Team (Late st Contact Info) Description 01/31/2017 Refill [place] [phone] Cathy Dillon APRN [facility] [place] [place] [address] Social History Tobacco Use Types Packs/Day Years [...] AM EDT TH Visit (TeleHealth) [place] [phone] Wyatt Higgins MD [facility] [place] [address] documented as of this encounter Visit Diagnoses Not on filedocumented in this encounter Care Teams Grass Farmer Relationship Specialty Start Date End Date Ruth Munoz, [address] [place] [address] PCP - General Family Medicine 02/05/19 documented as of this encounter
--- OUTSIDE RECORDS SUMMARY | 2024-05-15 11:11 | XMS_ITS | Encounter Summary ---
[facility] [place] [address] Care Team Providers Care Disability Specialist Name Role Phone Nanda Read MD Primary Care Provider Reason for Visit * Reason Onset Date Comments Follow-up 02/03/2016 Encounter Details Date Type Department Care Team (Late st Contact Info) Description 02/03/2016 Telephone [place] [address] Cathy Dillon, LARRY [facility] [place] [place] [address] Follow-up Social History Tobacco Use Types Packs/Day [...] * Telephone Encounter - Cathy Dillon - 02/03/2016 12:38 PM EDT Bariatric Surgery Program S/P gastric bypass on 01/04/16 Martha reports that she is doing better in the past few days.. She is not tracking intake as recommended, but estimates that she is drinking ~24 oz of water, popsicles and juice. She isn't sure how much protein but reports that she is eating a few tablespoons made with milk and spreadable cheese on a cracker. She is not interested in increasing protein, reports that she can tell when she has had enough and believes that taking it slow She is taking the multivitamins and omeprazole only. She reports that she can't shove any more pills down Her glucose levels have been elevated in the range of 299, is taking insulin Her nausea has improved, no vomiting today. She has been taking ondansetron, she believes that lorazepam is better. Recommendations: track intake, decrease juice, increase protein. Advised that lorazepam is not recommended at this time, continue ondansetron.. Encourage to return follow up as planned. She would like to return in a week or two. documented in this encounter Plan of Treatment Upcoming Encounters Date Type Department Care Team (Late st Contact Info) Description 02/19/2025 9:00 AM EDT TH Visit (TeleHealth) [place] [address] Wyatt Higgins MD [facility] [place] [address] documented as of this encounter Visit Diagnoses Not on filedocumented in this encounter Care Teams Disability Specialist Relationship Specialty Start Date End Date Nanda Read MD [facility] [address] [place] [address] PCP - General 09/14/10 06/06/18 documented as of this encounter
--- OUTSIDE RECORDS SUMMARY | 2024-05-15 11:11 | XMS_ITS | Encounter Summary ---
Author Organization [facility] [place] [address] Care Team Providers Care Last Picker Name Role Phone Nanda Read MD Primary Care Provider Encounter Details Date Type Department Care Team (Latest Contact Info) Description 06/19/2017 5:25 PM EDT Laboratory Appointment Lab [address] [place] [phone] Polyneuropathy, peripheral sensorimotor axonal Social History Tobacco Use Types Packs/Day Years [...] AM EDT TH Visit (TeleHealth) [place] [phone] Wyatt Higgins MD [facility] [place] [address] documented as of this encounter Procedures Procedure Name Priority Date/Time Associated Diagnosis Comments MISCELLANEOUS LAB REQUEST Routine 06/19/2017 5:55 PM EDT Polyneuropathy, peripheral sensorimotor axonal IMMUNOGLOBULINS, QUANTITATIVE Routine 06/19/2017 5:55 PM EDT IMMUNOFIXATION ELECTROPHORESIS Routine 06/19/2017 5:55 PM EDT PROTEIN ELECTROPHORESIS, SERUM Routine 06/19/2017 5:55 PM EDT Polyneuropathy, peripheral sensorimotor axonal documented in this encounter Results * Immunoglobulins, Quantitative (06/19/2017 5:55 PM EDT) IgG 1,009 700 - 1,600 mg/dL [facility] IgA 379 70 - 400 mg/dL [facility] IgM 76 40 - 230 mg/dL [facility] Blood specimen (specimen) Venous Draw / Unknown 06/19/2017 5:55 PM EDT 06/19/2017 6:20 PM EDT Narrative Resulting Agency Comment Spec In Lab Robert Victor MD CHEMISTRY ORDERAB LES [facility] [place] [address] * Immunofixation Electrophoresis (06/19/2017 5:55 PM EDT) Pathologist [facility] GHASSAN See Note [facility] Comment: GHASSAN shows no evidence of a monoclonal immunoglobulin. Dr. Clara Thompson 06/22/17 Please see scanned report in Chart Review under the [facility] Laboratory Heading. Blood specimen (specimen) Venous Draw / Unknown 06/19/2017 5:55 PM EDT 06/19/2017 6:20 PM EDT Narrative Resulting Agency Comment Spec In Lab Robert Victor MD CHEMISTRY ORDERAB LES Performing Organization Address [facility] Co de Phone Number [facility] [place] [address] * Protein Electrophoresis, serum (06/19/2017 5:55 PM EDT) [facility] Total Prot Elec 6.8 6.1 - 8.0 gm/dL [facility] Albumin Elect 4.20 3.60 - 6.00 gm/dL [facility] Alpha1-Globulin 0.18 0.10 - 0.30 gm/dL [facility] Alpha2-Globulin 0.73 0.40 - 0.90 gm/dL [facility] Beta Globulin 0.81 0.50 - 1.00 gm/dL [facility] Gamma Globulin 0.88 0.50 - 1.30 gm/dL [facility] M1 Band Comments Below [facility] SPEP Comments See Note [facility] Comment: Immunofixation (GHASSAN) and quantitative immunoglobulin (SARAH) testing will be performed on this sample per MD request. Blood specimen (specimen) 06/19/2017 5:55 PM EDT 06/19/2017 6:06 PM EDT Narrative Resulting Agency Comment Spec In Lab Robert Victor MD CHEMISTRY ORDERAB LES Performing Organization Address [facility] Co de Phone Number [facility] [place] [address] * Miscellaneous Lab request (06/19/2017 5:55 PM EDT) [facility] Result Request received in lab. 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
--- OUTSIDE RECORDS SUMMARY | 2024-05-15 11:11 | XMS_ITS | Encounter Summary ---
Author Organization [facility] [place] [address] Care Team Providers Care Inside Sales Professional Name Role Phone Nanda Read MD Primary Care Provider Reason for Visit * Consultation (Routine) - Closed Specialty Diagnoses / Procedures Referred By Patricio monsivais Referred To Contact Neurology Diagnoses agressive lower extremity neuropathy, now experiencing symtoms in her upper extremities (numbness and tingling) Nanda Read MD [facility] [address] [place] [address] [facility] [address] [place] [phone] Referral ID Status Reason Start Date Expiration Date Visits Re quested Visits Authorized [id number] Closed 03/21/2017 03/21/2018 1 1 Encounter Details Date Type Department Care Team (Late st Contact Info) Description 06/05/2017 10:30 AM EDT Procedure [place] [phone] Robert Victor MD [facility] [place] [address] Yancy Pennington, [facility] [place] [address] Polyneuropathy Social History Tobacco Use Types Packs/Day [...] Sign Reading Time Taken Comments Blood Pressure 117/65 06/05/2017 10:12 AM EDT Pulse 79 06/05/2017 10:12 AM EDT Temperature - - Respiratory Rate - - Oxygen Saturation - - Inhaled Oxygen Concentration - - Weight 78 kg (172 lb) 06/05/2017 10:12 AM EDT Height 160 cm (5' 3) 06/05/2017 10:12 AM EDT re ported Body Mass Index 30.47 06/05/2017 10:12 AM EDT documented in this encounter Procedure Notes * Yancy Pennington, DO [place] 06/05/2017 10:30 AM EDTProcedure(s): EMG; PRG NERVE CONDUCTION STUDIES 5-6 STUDIES Neurology Clinic Note Chief Complaint: hand numbness and tingling HPI: 51 yo woman with pmhx of uncontrolled [...] she states she feels thismade things worse. She states 6 months ago she developed numbness and tingling in her hands, but denies weakness in the hands. She denies radicular neck pain or radicular back pain. She has localizedback pain at the sight of a lipoma. She has had Vit B12 and TSH, [...] Memory loss R41.3 ??? Abdominal pannus E65 Allergies: Allergies Allergen Reactions ??? Codeine Phosphate Nausea And Vomiting Meds: ??? INVOKANA 100 mg Tablet ??? insulin aspart protamine-insulin aspart 70/30 (NOVOLOG MIX 70-30 FLEXPEN) Insulin Pen ??? glipiZIDE (GLUCOTROL) 10 mg Tablet ??? omeprazole (PRILOSEC) 20 mg Capsule, Delayed Release(E.C.) ??? ergocalciferol (ERGOCALCIFEROL) 50,000 unit Capsule ??? oxyCODONE-acetaminophen (PERCOCET) 10-325 mg Tablet ??? gabapentin (NEURONTIN) 300 mg Capsule ??? pediatric multivitamin with iron Tablet, Chewable ??? lidocaine (LIDODERM) 5 %(700 mg/patch) ??? baclofen (LIORESAL) 10 mg tablet ??? metFORMIN (GLUCOPHAGE) 500 mg tablet ??? BIOTIN ORAL SocHx: Social History Social History ??? Marital [...] malformation in her son/kidney stone Physical exam Vitals: 06/05/17 1012 BP: 117/65 Pulse: 79 Head: NC/AT Eyes: no scleral icterus Neck: [...] R 5/5 L 5/5 Wrist extension R 4/5 L 4/5 Wrist flexion R 5/5 L 5/5 Finger abduction R 4/5 L 4/5 APB R 3/5 L 3/5 Thenar and hypothenar significant atrophy bilaterally Negative Tinel's sign at wrist and elbow bilaterally Hip flexion R 4/5 L 4/5 Hip extension R 5/5 L 5/5 Knee extension R 5/5 L 5/5 Knee flexion R 5/5 L 5/5 Dorsiflexion R 2/5 L 0/5 Plantar flexion R 2/5 L 0/5 Foot inversion R 2/5 L 0/5 Foot eversion R 2/5 L 0/5 Reflexes: Absent throughout Toes equivocal Sensory: decreased to PP up to mid thigh on Left and up to knee on right, decreased to pinprick in ulnar distribution from fingers to elbow bilaterally, decreased position sense and vibration and thetoes. Vibration decreased at the ankles and intact at the knees Gait: walks with a walker Prior studies: [...] of which revealed a severe generalized polyneuropathy EMG/NCS was performed today. A detailed report will be scanned in separately. There was electrodiagnostic evidence of a severe length dependent sensorimotor axonal neuropathy. A/P 51 yo woman with severe sensorimotor axonal neuropathy likely 2/2 to diabetes vs hereditary neuropathy given sister with similar symptoms and severity of disease. 1) Generalized sensorimotor length dependent axonal neuropathy Discussed genetic testing with patient and she is agreeable, will fill out paperwork to have this done and have patient return to clinic in 2 weeks to 1 month. At that time we will check genetic screen as well as SPEP, GHASSAN as these have not been checked in the past Thank you for this consultation. Case was discussed with and EMG/NCS performed alongside Dr. Kayleigh Pennington, Clinical Neurophysiology Fellow #[id number] CC: Nanda Read MD I saw and evaluated the patient with . I have reviewed the resident's history during the visit and agree with the details as written. My neurological exam confirms the residents findings. The assessment and plan were formulated in discussion with me at the time of the visit and I agree with them as documented. Severe axonal polyneuropathy and longstanding DM as well as FH. She is interetsed in genetic testing, which we will try and facilitate. Robert Victor MD 06/06/2017 documented in this encounter Plan of Treatment Upcoming Encounters Date Type Department Care Team (Late st Contact Info) Description 02/19/2025 9:00 AM EDT TH Visit (TeleHealth) [place] [address] Wyatt Higgins MD [facility] [address] documented as of this encounter Visit Diagnoses Diagnosis Polyneuropathy Unspecified hereditary and idiopathic peripheral neuropathy documented in this encounter Care Teams Inside Sales Professional Relationship Specialty Start Date End Date Nanda Read MD [facility] [address] [place] [address] PCP - General 09/14/10 06/06/18 documented as of this encounter
--- OUTSIDE RECORDS SUMMARY | 2024-05-15 11:11 | XMS_ITS | Encounter Summary ---
Author Organization [facility] [place] [address] Care Team Providers Care Offset Press Operator Helper Name Role Phone Nanda Read MD Primary Care Provider [phone] Reason for Visit * Reason Comments Vitamin B12 Deficiency Encounter Details Date Type Department Care Team (Late st Contact Info) Description 03/09/2016 11:30 AM EDT Office [place] [address] Judith Reinoso MD [facility] [place] [address] Diabetes mellitus type 2, uncontrolled; Type 2 diabetes, uncontrolled, with neuropathy; Vitamin D deficiency Social History Tobacco Use [...] - Inhaled Oxygen Concentration - - Weight 98.1 kg (216 lb 4.3 oz) 03/09/2016 11:46 AM EDT Height 160 cm (5' 3) 03/09/2016 11:46 AM EDT Body Mass Index 38.31 03/09/2016 11:46 AM EDT documented in this encounter Progress Notes * Judith Reinoso MD - 03/09/2016 1:40 PM EDT Endocrine Clinic Name: [facility] : 1965 Date: 03/09/2016 PCP: NANDA READ MD Provided by: Judith Reinoso MD Reason for visit: Follow-up diabetes s/p recent bariatric surgery with Dr. Mai on 01/04/16 with wt lost of 33 lbs quickly after the surgery Diabetes treatment regimen: U-500 0.06 ml in am p.r.n when her BG >200 in am (typically 5x/week)and sometimes Humalog sliding scale p.r.n for correction of high BG>150 based on 1 unit for every 10 BG ratio. Also, metformin 500 mg bid => but could not swallow well, so she tried to take it 1 tab qod with glipizide 10 mg qd (instead of bid due to swallowing issue) and has not resumed Invokana 100 mg qd yet due to some yeast infection under her breast (not UTI). FSBG: average 180 over the past 2 weeks, ranging between 115- 260 mg/dl Most recent HA1c: 8.4% on 11/03/15 (was 8.5% on 11/03/15, 7.6% on 03/05/15 with her PCP), Hypoglycemia during the interval time: none Diet: low fat/low carb diet Exercise: walking Complications: no changes during the interim. Prevention: same as last visit recently. She could not swallow pills well and therefore decided to resume U-500 very low dose 6u qam when she noted higher BG trend lately after she started eating better. BG was ok at target after the surgery while she was not eating well. She responded well to very low dose U-500 0.6 units on the syringe (equivalent to 30 units of insulin) once a day p.r.n (~5x/week) over the past couple of week with good results, so we will switch it to 70/30 mix insulin at the same dose today. She las lost wt quickly from 250 lbs to 216 lbs after 2 months post bariatric surgery which is excellent and just saw Dr. Mai and Cahty Dillon MARKET RELATIONSHIP MANAGER today with plan to FU again in 4 mo. She is better from her foot drop, peripheral neuropathy with LE weakness, using walker and used to see neurologist. She wants to lose wt further and is glad that she could not eat for her brain and has to adjust to her smaller stomach now. This will help reduce insulin resistance, especially [...] as rec'd by bariatric team before the surgery 2 mo ago (pending for the result today). Deniesany changes in vision, no CP, SOB, GI issues, leg swelling or foot ulcer. She already had pretty normal dilated eye [...] to Visit Medication Sig Dispense Refill ??? Insulin Syringe-Needle U-100 (BD INSULIN SYRINGE ULT-FINE II) 1 mL 31 x 03/07 Syringe Inject 1 each subcutaneously 3 times daily as needed. 100 Syringe 12 ??? ondansetron (ZOFRAN-ODT) 4 mg Tablet, Rapid Dissolve Take 1 tablet by mouth every 8 hours as needed for Nausea (Attempt this one prior to IV administration. May use 4mg of IV if no relief within 30 minutes.). (Patient not taking: Reported on 03/09/2016) 20 tablet 0 ??? prochlorperazine (COMPAZINE) 5 mg Tablet Take 1 tablet by mouth every 6 hours as needed for Nausea. (Patient not taking: Reported on 03/09/2016) 30 tablet 0 ??? LORazepam (ATIVAN) 0.5 mg Tablet Take 1 tablet by mouth every 6 hours as needed for Anxiety. (Patient not taking: Reported on 03/09/2016) 5 tablet 0 ??? Insulin Lispro (HUMALOG) [...] for 270 days. 90 capsule 2 ??? ergocalciferol (VITAMIN D) 50,000 unit Capsule Take 1 capsule by mouth twice a week for 48 doses. (Patient not taking: Reported on 03/09/2016) 24 capsule 1 ??? Cyanocobalamin 1,000 mcg Tablet, Sublingual Place 1 tablet under the tongue daily. (Patient nottaking: Reported on 03/09/2016) 90 tablet 3 ??? ferrous sulfate 325 mg (65 mg iron) Tablet Take 1 tablet by mouth daily for 180 days. Take withvitamin C 500 mg to improve absorption (Patient not taking: Reported on 03/09/2016) 90 tablet 1 ??? pravastatin (PRAVACHOL) 20 mg Tablet Take 20 mg by mouth daily. ??? levothyroxine (SYNTHROID) 25 mcg tablet TAKE 1 TABLET BY MOUTH DAILY (Patient not taking: Reported on 03/09/2016) 90 tablet 4 ??? lidocaine (LIDODERM) 5 [...] 1/2 mL 30 x 5/16 Syrg by [facility].(Non-Drug; Combo Route) route 2 times daily. Using with insulin bid 1 Box 4 No current facility-administered medications on file prior to visit. Allergies Allergen Reactions ??? Codeine Phosphate Nausea And Vomiting History Social History ??? Marital status: Spouse name: N/A ??? Number of children: N/A ??? Years of education: N/A Occupational History ??? disabled Social History Main Topics ??? Smoking status: Never Smoker ??? Smokeless tobacco: Never Used ??? Alcohol use: No ??? Drug use: No ??? Sexual activity: Not on file Other Topics Concern ??? None Social History Narrative FAMILY HISTORY Family History Problem Relation Age of Onset ??? Diabetes ??? High Cholesterol ??? Hypertension ??? Stroke ??? Obesity ??? Psoriasis ??? * congenital malformation in her son/kidney stone ??? Diabetes Mother ??? Diabetes Father Physical exam Visit Vitals ??? Ht 160 cm (5' 3) ??? Wt 98.1 kg (216 lb 4.3 oz) ??? BMI 38.31 kg/m2 Appearance: Obese, pleasant, NAD, looks better today and brought her BG log for review in details today HEENT: PERRLA, EOMI Neck: no goiter [...] Normal CMP Urine microalb/Cr -neg Recent labs Results for JO JONES ( ) Ref. Range 01/25/2016 14:49 WBC Latest Ref [...] Range: 65 - 99 mg/dL 218 (H) Ref. Range 01/26/2016 16:14 01/26/2016 18:52 01/26/2016 23:48 01/27/2016 03:59 01/27/2016 07:01 01/27/2016 11:01 POC Glucose Range: 65 - 199 mg/dL 176 181 190 202 (H) 194 217 (H) Assessment: Diabetes Type II - suboptimal with A1c 7.6-8.5% range with good c-peptide 2.9 from her own insulin production (but still not enough for her need due to insulin resistance and obesity), and now ~ 2mo after gastric bypass surgery with significant wt loss down from 250 to [address] Mai for post- hospital check up today. She has insulin resistance and required U-500 0.12 ml (60u) bid along with 3 oral agents before the surgery and now after the surgery, she only needs U-500 0.06u qam p.r.n only on the day she notes high BG>200 when she started to eat more over the past week. She could not swallow pills well (especially metformin and also reduced glipizide to qam) and intolerant to GLP-1 due to GI side effects, and ok to use insulin low dose although her U500 is almost outnow. We can switch U500 to 70/30 insulin today since it has similar action like U-500 but not concentrated 5x and will be easier for her to adjust the dose. She is pleased with her wt loss and wants to lose more wt further after gastric bypass for her diabetic neuropathy and now completed the full evaluation with our bariatric team. Complication Risk Status: complications present +sever peripheral [...] increase to 2x/weekly dose by bariatric team already pre-op. Her B12 was trending down from 400s to 300s and will give her B12 injection x1 again today as a booster dose and then cont OTC-B12 1,000 mcg qd sublingual further for her neuropathy Plan: 1. Medication: Adjustment of diabetes treatment regime: To switch U-500 0.06 ml to 70/30 mix 30u qam or she can split into bid dosing using 20u qam and 10uqpm (2:1 am:pm ratio). She is allow to titrate the dose by 2u if needed to keep BG at target of 90-180 range. To use Humalog pen sliding scale as needed but to start only if BG>200 while on 70/30 mix based on 1u:20 BG ratio. To cont glipizide 10 mg qd/bid, metformin 500 mg qd/bid (could not tolerate the higher dose or swallowing pills well) Ok to hold on invokana 100 mg qd while she is trying on 70/30 mix but ok to resume it if BG remainshigh post-meal later to reduce the need of insulin. To cont vitamin D 50,000 iu 2x/week as prescribed by bariatric team 2. To continue all other medications, vitamin supplements as instructed,and healthy diet to keep wtdown further 3. Monitoring: to check FSBG before each meal and at bedtime. Target BG 90-150 while fasting and 80-180 pre-meal during daytime Target A1c ~7% for this patient while on insulin 4. Lab: Already checked lab recently as above 5. RTC: Next visit on the same day she is seeing Dr. Mai in 4 mo (for 6mo post gastric bypass).Will check lab before next visit for HbA1c, BMP, 25vitamin D, dLDL and annual urine microalbumin/Crratio as planned. We have reviewed our plan [...] AM EDT TH Visit (TeleHealth) [place] [address] Wyatt Higgins MD [facility] [place] [address] documented as of this encounter Results * Microalbumin, urine, random (07/05/2016 2:21 PM EDT) Alb/Cr Ratio, Random 7 0 - [...] 2, 357? 362 U Albumin Conc, Random 3.7 mg/L [facility] U Creatinine 54 mg/dL [facility] Urine specimen (specimen) 07/05/2016 2:21 PM EDT 07/05/2016 3:12 PM EDT Narrative Resulting Agency Comment Spec In Lab Judith Reinoso MD [place] [address] documented in this encounter Visit Diagnoses Diagnosis Diabetes mellitus type 2, uncontrolled Type II or unspecified type diabetes mellitus without mention of complication, uncontrolled Type 2 diabetes, uncontrolled, with neuropathy Type II or unspecified type diabetes mellitus with neurological manifestations, uncontrolled Vitamin D deficiency Unspecified vitamin D deficiency documented in this encounter Care Teams Offset Press Operator Helper Relationship Specialty Start Date End Date Nanda Read MD [facility] [address] [place] [address] PCP - General 09/14/10 06/06/18 documented as of this encounter
--- OUTSIDE RECORDS SUMMARY | 2024-05-15 11:11 | XMS_ITS | Encounter Summary ---
Author Organization [facility] [place] [address] Care Team Providers Care Manager Ecommerce Name Role Phone Nanda Read MD Primary Care Provider [phone] Encounter Details Date Type Department Care Team (Late st Contact Info) Description 02/23/2016 Telephone [place] [address] Nany Tai, RD [facility] [place] [address] Social History Tobacco Use Types Packs/Day Years [...] Miscellaneous Notes * Telephone Encounter - Nany Tai, RD - 02/23/2016 1:47 PM EDT I called Martha today to check-in. She is S/P RNY gastric bypass on 01/04/16. She was out driving with her daughter so we could not talk long. States things are slowly getting better. Now recognizes the sensation of fullness and knows when to stop eating. Continues to learn how much and what she can eat. She does not track what she is eating. States she eats what she can without getting sick. She does not want to micro-manage her diet after being sick for so long. Continues to struggle with protein. Cannot eat chicken, turkey, or scrambled eggs. Is able to tolerate small quantities of beef jerky and hamburger. States she can eat popcorn and cucumbers as well. Her energy level is improved and she is getting out more. Assessment/plan: Sounds much better today. Most likely not meeting protein needs. F/u appts in 2 weeks. Pt has contact information for further questions. documented in this encounter Plan of Treatment Upcoming Encounters Date Type Department Care Team (Late st Contact Info) Description 02/19/2025 9:00 AM EDT TH Visit (TeleHealth) [place] [address] Wyatt Higgins MD [facility] [place] [address] documented as of this encounter Visit Diagnoses Not on filedocumented in this encounter Care Teams Manager Ecommerce Relationship Specialty Start Date End Date Nanda Read MD [facility] D [address] [place] [address] PCP - General 09/14/10 06/06/18 documented as of this encounter
--- OUTSIDE RECORDS SUMMARY | 2024-05-15 11:11 | XMS_ITS | Encounter Summary ---
Author Organization [facility] [place] [address] Care Team Providers Care Billposting Supervisor Name Role Phone MunozRuth jerome Lilibeth JUAREZ Primary Care Provider + Reason for Visit * Reason Comments Medication Refill Encounter Details Date Type Department Care Team (Late st Contact Info) Description 03/21/2017 Refill [place] [id number] Cathy Dillon APRN [facility] [place] [address] Social History Tobacco Use Types Packs/Day Years [...] AM EDT TH Visit (TeleHealth) [place] [phone] Wyatt Higgins MD [facility] [place] [address] documented as of this encounter Visit Diagnoses Not on filedocumented in this encounter Care Teams Billposting Supervisor Relationship Specialty Start Date End Date Ruth Munoz, [address] [place] [address] PCP - General Family Medicine 02/05/19 documented as of this encounter
--- OUTSIDE RECORDS SUMMARY | 2024-05-15 11:11 | XMS_ITS | Encounter Summary ---
Author Organization [facility] [place] [address] Care Team Providers Care Digital Account Director Name Role Phone Nanda Read MD Primary Care Provider [phone] Encounter Details Date Type Department Care Team (Late st Contact Info) Description 02/01/2016 Telephone [place] [address] Nany Tai, RD [facility] [place] [place] [address] Social History Tobacco Use Types Packs/Day Years [...] Telephone Encounter - Nany Tai, RD - 02/01/2016 1:22 PM EDT I called Martha multiple times today to see how she is doing as she canceled her follow-up appointment with the bariatric surgery program. When asked how she was doing she said Same as everyday. She is feeling discouraged today and wants to sleep to escape. States she is 1 month post-op and still cannot eat. Reports drinking about12 oz. Of fluid in 24 hours, with difficulty. Can sometimes eat 1 popsicle per day. Her son is at her house and is encouraging her to eat. He bought her FiberOne cottage cheese and would like her to try 1 Tbs. Today. Encouraged pt to try the cottage cheese. States a few days ago her brother brought her some Sprite and that was tolerated. Suggested she try1/2 strength Gatorade but she does not like Gatorade and is tired of fruit flavored drinks. She also notes she was able to eat spreadable cheddar cheese and some crackers 2 days ago but has not triedit since. She does not like protein drinks. She is having difficulty taking her medications. States she can take the antinausea medication but she feels sick for about 30 minutes after taking it and does not think it helps. Notes the IV medication she received in the hospital worked. She would like to try the rapid dissolve medication. After further review of her chart, advised Martha a prescription for that medication was called into her pharmacy. She called her pharmacy and was told it needs prior authorization. Martha was advised it was OK to hold on the ursodiol until she can tolerate food better but that sheshould continue to take the omeprazole. She can tolerate the omeprazole but has not taken it today. She is concerned about dehydration. She does not want to be readmitted to the hospital stating she would rather on her couch than be admitted to [facility] again. Reports her urine is like a dark lemonade but not apple juice in color. Advised if she cannot tolerate more than 12 oz. Of fluid today sheshould go see her PCP. Martha is wondering if she could get home health for IV fluids. Plan: Continue to sip on fluids. Continue to try small amounts of food. Encouraged pt to keep a list of foods she can tolerate. Pt to contact PCP tomorrow if fluid intake is still low. Gen Surg. Nurses will work on prior authorization for rapid dissolve zofran. Will call pt on Th/Fri to check-in. documented in this encounter Plan of Treatment Upcoming Encounters Date Type Department Care Team (Late st Contact Info) Description 02/19/2025 9:00 AM EDT TH Visit (TeleHealth) [place] [address] Wyatt Higgins MD [facility] [place] [address] documented as of this encounter Visit Diagnoses Not on filedocumented in this encounter Care Teams Digital Account Director Relationship Specialty Start Date End Date Nanda Read MD [facility] [address] [place] [address] PCP - General 09/14/10 06/06/18 documented as of this encounter
--- OUTSIDE RECORDS SUMMARY | 2024-05-15 11:11 | XMS_ITS | Encounter Summary ---
Author Organization [facility] [place] [address] Care Team Providers Care Financial Institution Treasurer Name Role Phone Nanda Read MD Primary Care Provider [phone] Reason for Visit * Auth/Cert Specialty Diagnoses / Procedures Referred By Patricio monsivais Referred To Contact Diagnoses Localized adiposity Abdominal pannus Procedures PRO EXCISE EXCESS SKIN TISSUE, ABDOMEN ABDOMINOPLASTY (WRVU 17.11) Referral ID Status Reason Start Date Expiration Date Visits Re quested Visits Authorized [id number] 1 1 Encounter Details Date Type Department Care Team (Late st Contact Info) Description 06/29/2017 3:41 PM EDT Anesthesia Event [place] [address] Jose D Hickey MD [facility] [place] [address] Yair Gregory MD [facility] [place] [address] Anesthesia Record Procedure Summary Procedure Name Responsible Anesthesiologist Anesthesia Start Time Anesthesia Stop Time PANNICULECTOMY (WRVU 17.11) (Abdomen) Jose D Hickey MD 06/29/17 1541 06/29/17 1758 Events Date Time Event Comment 06/29/2017 1335 1541 Start 1547 AN Verify 1548 An Start Data 1550 An Induction 1553 An Intubation 1553 Anesthesia Ready 1617 Procedure Start 1624 Break/Relief In DESI Sylvester, PRIVATE SECRETARY 1708 Quick Note Fluconazole 400 mg over 120 min 1721 Break/Relief Out 1746 Extubation/LMA Out 1751 an stop data 1756 Recovery or ICU Handoff Esperanza ent care was transferred to the destination unit staff after review of the patient's medical history, current anesthetic/surgical status and plan, according to the Provider Handoff Checklist. 1758 Stop Meds Name Total fentaNYL 100 mcg IV Lidocaine 40 mg Propofol 350 mg Ondansetron 8 mg Dexamethasone 4 mg ceFAZolin 2 g fluconazole 400mg in sodium chloride 0.9 % 200mL 400 mg Propofol INF 136.85 mg lactated Ringers infusion 1,000 mL 700 m L * Agents Name O2 Air N2O Sevoflurane (et) * Blood No blood administrations on file. [...] Stuart RN 06/20/22 1715 by Tyrell Garcia (RETIRED) Peripheral IV Line - Single Lumen 06/29/17; 1410; metacarpal vein (top of hand), right; [id number] catheter system; 20 gauge, 1 in length; BRENDAN Jean-Baptiste; intradermal injection; 1; metacarpal vein (top of hand), left; 06/30/17; 1103 06/29/17 1410 by Sumit Cook RN 06/30/17 1103 by Scot Mendosa LNA Urethral Catheter 06/29/17; 1547; Physician order; Physician order; indwelling double lumen catheter; latex; 14; inserted at this facility; 1; 5; 10; drainage bag to dependent drainage; 06/30/17; 0449 06/29/17 1547 by Padma Zhou RN 06/30/17 0449 by Nancy Ruiz LNA Supraglottic Mask Ventilation: Ea ying (1); LMA Size: 4; Inserted by: Colt; Removal Date: 06/29/17; Removal Time: 17406/29/17 1557 by Yair Gregory MD 06/29/17 1746 by Ofelia Encarnacion MD Incision 06/29/17; 1622; abdomen; 06/20/22 (LDA cleanup utility RA#[id number]); 1715 (LDA cleanup utility RA#[id number]) 06/29/17 1622 by Padma Zhou RN 06/20/22 1715 by Tyrell Garcia documented in this encounter Social History Tobacco [...] OR Notes * Anesthesia Postprocedure Evaluation - Ofelia Encarnacion - 06/29/2017 5:59 PM EDT [facility] Department of Anesthesiology Post-procedure Note Patient: Martha Benoit Procedure Summary Date Anesthesia Start Anesthesia Stop Room / Location 06/29/17 1541 1758 [facility] Procedure Diagnosis Surgeon Responsible Provider ABDOMINOPLASTY (WRVU 17.11) (N/A Abdomen); MODIFIER PANNICULECTOMY (Bilateral Abdomen) (Abdominal pannus) James Rosenthal MD Chow, Vinca W, MD All Anesthesia Providers: Anesthesiologist: Jose D Hickey MD Caster Helper: Yair Gregory MD; Ofelia Encarnacion MD Last (1hr) Vitals: BP Temp Pulse Resp SpO2 Patient Location: PACU/SDP Level of Consciousness: Awake and Alert Pain Management: Satisfactory Analgesia PONV: None Cardiovascular Status: At Baseline and Hemodynamically Stable Respiratory Status: Supplemental O2 (NC or FM) and Stable Respiratory Status Postoperative Fluid Status: Intravascular EUvolemia Possible Anesthetic Complications: NONE apparent at time of evaluation Final Primary Anesthesia Type: General (The anesthetic type performed was the same as planned.) Comments: Ofelia Encarnacion MD * Anesthesia Preprocedure Evaluation - Jose D Hickey MD - 06/29/2017 11:18 AM EDT Pre-Anesthesia Evaluation for: Martha Benoit a 51 y.o. female. Procedure(s): ABDOMINOPLASTY (WRVU 17.11) MODIFIER PANNICULECTOMY Patient Active Problem List Diagnosis ??? Abdominal pannus ??? Increased PTH level ??? Iron deficiency [...] ??? Seborrheic keratosis ??? Unspecified hypothyroidism ??? 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 Peripheral autonomic neuropathy due to diabetes mellitus ??? Peripheral neuropathy-severe generalized severe generalized peripheral neuropathy & Lt foot/toe drop 02/23/10: nerve conduction studies showed severe generalized peripheral neuropathy. In addition, there is active denervation across multiple root and peripheral nerve distribution in the left lower extremity. Dr. Julio Cesar Wright suggested lumbar puncture in [place] -if high protein, may need IVIG therapy or try two days of high dose steroid therapy ??? Preoperative Class III obesity BMI 43, S/P gastric bypass 01/04/16 Bariatric Surgery Program 1. Attended Introduction to the [facility] Bariatric Surgery Program seminar, a comprehensive two hour meeting that provides a program overview, education on bariatric surgeries offered at [facility], risks andbenefits, as well as patient expectations and follow up: 08/05/14. [facility] BSP Educational seminars viewed: 3. Grades on post-testin-100%. The BSP Educational Handbook is provided at preoperative visit #1. 2. Pre-operative programmatic evaluations required: PCP evaluation and letter of support to proceedwith surgery, BSP labwork (can be done on day of visit #1) and psychological evaluation- minimum of2 visits. 3. Bariatric Surgery Program evaluations with RD and STORM DOOR MAKER: 11/03/15 4. Weight history: 198 pounds on 08/25/04, 207 pounds on 03/20/09, 249 pounds on 07/01/14, 253 pounds on 02/20/15 5. Gallbladder status: 6. Insurer specific requirements: [place] medicaid- 3 months of supervised counseling 7. BSP Team meeting discussion: no Post surgery course: 1. Admitted to [facility] on 01/24/16 with nausea and vomiting, failure to progress diet.Transfer to [facility] on 01/25/16 ??? Vitamin D deficiency Lab [...] ureteral stone extraction Jul - [facility] [place] ??? Chronic foot pain-s/p heel spur surgeries [...] GASTROPLASTY, performed by Jose Mai MD at [facility] MA[facility] OR ??? PRO UPPER GI ENDOSCOPY, BIOPSY 11/16/2011 EGD WITH BIOPSY performed by ALISA RICHARDS at [facility] ENDOSCOPY ??? PRO UPPER GI ENDOSCOPY, DIAGNOSTIC N/A 11/04/2015 EGD, UPPER GI ENDOSCOPY performed by Kisha Doss MD at [facility] ENDOSCOPY ??? PRO UPPER GI ENDOSCOPY, DIAGNOSTIC N/A 01/04/2016 ENDOSCOPY, UPPER GI, DIAGNOSTIC, WITH OR WITHOUT SPECIMENS performed by Jose Mai MD at [facility] MAIN OR ??? TUBAL LIGATION ??? UPPER GI ENDOSCOPY, EXAM 11/16/2011 UPPER GI ENDOSCOPY performed by ALSIA RICHARDS at [facility] ENDOSCOPY Social History Substance Use Topics ??? Smoking status: Never Smoker ??? Smokeless tobacco: Never Used ??? Alcohol use No History Drug Use No No Known Allergies Medications: MAR and/or home medications have been reviewed. Physical Exam: There were no vitals filed for this visit. There is no height or weight on file to calculate BMI. Airway Assessment: Mallampati: I TM distance: >3 FB Neck ROM: full Cardiovascular Assessment: cardiovascular exam normal Pulmonary Assessment: breath sounds clear to auscultation pulmonary exam normal Dental Assessment: - normal exam Misc Assessment: IV access: Peripheral line Anesthesia Plan: ASA 2 general, with a(n) intravenous induction Attending Assessment: Patient personally seen and examined. 51yo F with diabetes mellitus, severe generalized polyneuropathy (long axonal neuropathy), undergoing panniculectomy. No cardiac or pulmonary problems. No recent URI. Well-controlled GERD on omeprazole (asymptomatic in preop). Polyneuropathy, evaluated by EMG, shows dysfunction of long axons. bilateral hands numb/tingle. L foot weak. No problems with anesthesia in the past. Mac3 Gr. 1 Meds: Percocet, Gabapentin 300, Baclofen, metformin, glipizide, omeprazole Glucose in preop 103. HgA1c 6.5 on 04/27/17 Hgb 13 in 01/2017 Plan: - preop Tylenol - standard ASA monitors, PIV - GA with LMA, ETT as backup. Avoid paralytic if possible. Following discussion of benefits, indications, and risks (including but not limited to sore throat,dental injury, prolonged intubation, cardiac or neurologic event), consent obtained and placed in chart. Jose D Hickey MD 06/29/2017 Region - Other Informed Consent: Anesthetic plan and risks discussed with patient. Plan discussed with resident. PAT Staff Note documented in this encounter Plan of Treatment Upcoming Encounters Date Type Department Care Team (Late st Contact Info) Description 02/19/2025 9:00 AM EDT TH Visit (TeleHealth) [place] [address] Wyatt Higgins MD [facility] [place] [address] [phone] (work) documented as of this encounter Visit Diagnoses Not on filedocumented in this encounter Administered Medications Inactive Administered Medications - up to 3 most recent administrations Medication Order MAR Action Action Date Dose Rate Site ceFAZolin (ANCEF) 1g in dextrose 5% 50mL PRN, Starting on Ava 06/29/17 at 1600, Until Ava 06/29/17 at 1759, Administer over 30 Minutes, Anesthesia Intra-op Given 06/29/2017 4:00 PM EDT 2 g dexamethasone (DECADRON) injection PRN, Starting on Ava 06/29/17 at 1553, Until Ava 06/29/17 at 1759, Anesthesia Intra-op, Routine Given 06/29/2017 3:53 PM EDT 4 mg fentaNYL 50 mcg/mL multi-dose injection PRN, Starting on Ava 06/29/17 at 1550, Until Ava 06/29/17 at 1759, Pain, Anesthesia Intra-op, Routine Given 06/29/2017 4:23 PM EDT 25 mcg Given 06/29/2017 4:16 PM EDT 25 mcg Given 06/29/2017 3:50 PM EDT 50 mcg fluconazole 400mg in sodium chloride 0.9% 200mL 400 mg, Intravenous, ONCE, 1 dose, On Ava 06/29/17 at 1645, Administer over 120 Minutes, Indication for (Active or Suspected): Prophylaxis, Restricted Antibiotic: Please indicate the most appropriate choice: Pre-approved Indication (State the indication in Comments field) Given 06/29/2017 5:08 PM EDT 400 mg lactated Ringers infusion 1,000 mL 1,000 mL, at 100 mL/hr, Intravenous, CONTINUOUS, Starting on Ava 06/29/17 at 1345, Until Ava 06/29/17 at 1934, Day of Surgery (Day of Procedure) New Bag 06/29/2017 3:41 PM EDT lidocaine (PF) (XYLOCAINE) 100 mg/5 mL (2 %) injection PRN, Starting on Ava 06/29/17 at 1551, Until Ava 06/29/17 at 1759, Anesthesia Intra-op, Routine Given 06/29/2017 3:51 PM EDT 40 mg ondansetron (ZOFRAN) injection PRN, Starting on Ava 06/29/17 at 1715, Until Ava 06/29/17 at 1759, Nausea, Anesthesia Intra-op, Routine Given 06/29/2017 5:15 PM EDT 8 mg propofol (DIPRIVAN) 10 mg/mL bolus injection (Anesthesia) PRN, Starting on Ava 06/29/17 at 1551, Until Ava 06/29/17 at 1759, Anesthesia Intra-op Given 06/29/2017 5:38 PM EDT 50 m g Given 06/29/2017 5:17 PM EDT 100 mg Given 06/29/2017 3:51 PM EDT 200 mg propofol (DIPRIVAN) infusion CONTINUOUS PRN, Starting on Ava 06/29/17 at 1624, Until Ava 06/29/17 at 1759, Anesthesia Intra-op, Routine New Bag 06/29/2017 4:24 PM EDT 25 mcg/kg/min 11.6 mL/hr documented in this encounter Care Teams Financial Institution Treasurer Relationship Specialty Start Date End Date Nanda Read MD [facility] [address] [place] [address] PCP - General 09/14/10 06/06/18 documented as of this encounter
--- OUTSIDE RECORDS SUMMARY | 2024-05-15 11:11 | XMS_ITS | Encounter Summary ---
Author Organization [facility] [place] [address] Care Team Providers Care Melt Down Furnace Operator Name Role Phone Nanda Read MD Primary Care Provider Reason for Visit * Reason Onset Date Comments Medication Refill 02/15/2016 Encounter Details Date Type Department Care Team (Late st Contact Info) Description 02/15/2016 [place]ill [place] [address] Judith Reinoso MD [facility] [place] [address] Social History Tobacco Use Types Packs/Day Years [...] Telephone Encounter - Tracy Tavarez LPN - 02/15/2016 2:32 PM EDT Rx request received for 1 ml insulin syringes. Called patient. Message left on v/m to r/c to nurse. Need to verify if she is really using 1 ml syringes. documented in this encounter Plan of Treatment Upcoming Encounters Date Type Department Care Team (Late st Contact Info) Description 02/19/2025 9:00 AM EDT TH Visit (TeleHealth) [place] [address] Wyatt Higgins MD [facility] [place] [address] documented as of this encounter Visit Diagnoses Not on filedocumented in this encounter Care Teams Melt Down Furnace Operator Relationship Specialty Start Date End Date Nanda Read MD [facility] [address] [place] [address] PCP - General 09/14/10 06/06/18 documented as of this encounter
--- OUTSIDE RECORDS SUMMARY | 2024-05-15 11:11 | XMS_ITS | Encounter Summary ---
Author Organization [facility] [place] [address] Care Team Providers Care Sail Repair Person Name Role Phone Nanda Read MD Primary Care Provider Encounter Details Date Type Department Care Team (Late st Contact Info) Description 02/05/2016 Telephone [place] [address] Nany Tai, RD [facility] [place] [place] [address] Social History Tobacco Use Types Packs/Day Years [...] Telephone Encounter - Nany Tai, RD - 02/05/2016 2:19 PM EDT I called Martha today to check-in as per our conversation on Monday. She states she is tired. When asked if she is doing better than Monday she said she guessed so, she's coasting along. I advised Martha of her upcoming appointments on March 09, 2016. Pt has our phone number for questions/concerns. documented in this encounter Plan of Treatment Upcoming Encounters Date Type Department Care Team (Late st Contact Info) Description 02/19/2025 9:00 AM EDT TH Visit (TeleHealth) [place] [address] Wyatt Higgins MD [facility] [place] [address] documented as of this encounter Visit Diagnoses Not on filedocumented in this encounter Care Teams Sail Repair Person Relationship Specialty Start Date End Date Nanda Read MD [facility] [address] [place] [address] PCP - General 09/14/10 06/06/18 documented as of this encounter
--- OUTSIDE RECORDS SUMMARY | 2024-05-15 11:11 | XMS_ITS | Encounter Summary ---
Author Organization [facility] [place] [address] Care Team Providers Care Assistant Center Director Name Role Phone Nanda Read MD Primary Care Provider [phone] Encounter Details Date Type Department Care Team (Late st Contact Info) Description 06/19/2017 4:30 PM EDT [place] [address] Wyatt Higgins MD [facility] [place] [address] Yancy Pennington DO [facility] [place] [address] Polyneuropathy, peripheral sensorimotor axonal Social History Tobacco [...] Sign Reading Time Taken Comments Blood Pressure 104/57 06/19/2017 4:22 PM EDT Pulse 79 06/19/2017 4:22 PM EDT Temperature - - Respiratory Rate - - Oxygen Saturation - - Inhaled Oxygen Concentration - - Weight 77.1 kg (170 lb) 06/19/2017 4:22 PM EDT Height 160 cm (5' 3) 06/19/2017 4:22 PM EDT rep orted Body Mass Index 30.11 06/19/2017 4:22 PM EDT documented in this encounter Progress Notes * Yancy Pennington DO - 06/19/2017 4:30 PM EDT Neurology Follow Up Note Interval History: Patient's symptoms have remained stable since last visit. She has continued paresthesias in hands more in the 4th and 5th digits. She has returned today to discuss genetic testing for a hereditary neuropathy. HPI: 51 yo woman with pmhx of [...] pain at the sight of a lipoma. ?? She has had Vit B12 and TSH, [...] of which revealed a severe generalized polyneuropathy Physical Exam Vitals: 06/19/17 1622 BP: 104/57 Pulse: 79 Head: NC/AT Eyes: no scleral [...] Thenar and hypothenar significant atrophy bilaterally ?? Negative Tinel's sign at wrist and elbow bilaterally ?? Hip flexion R 4/5 L 4/5 Hip [...] Gait: walks with a walker Prior studies: ??She has had Vit B12 and TSH, serum paraneoplastic panel checked in the past which were unremarkable. Her most recent A1C was 6.5%. She states she had a sister with similar symptoms and checking fora hereditary cause was discussed with her in the past, but joint decision was made not to pursue itas management would not change. She had EMG/NCS in 2008, 2009 and 2010 all of which revealed a severe generalized polyneuropathy ?? EMG/NCS was performed at last visit 06/05/17. There was electrodiagnostic evidence of a severe length dependent sensorimotor axonal neuropathy. A/P 51 yo woman with a severe length dependent sensorimotor axonal neuropathy of unknown cause; suspectthis is secondary to diabetes or a hereditary neuropathy given similar symptoms in sister 1) Severe length dependent sensorimotor axonal neuropathy Patient would like to pursue genetic testing and she will have blood work drawn today as a sendout for [facility] genetic testing. Testing will include hereditary sensory and autonomic neuropathy panel,hereditary motor neuropathy panel, and CMT comprehensive panel- verified with lab that send out canbe done. Counseled patient on genetic testing and explained that sometimes we do not get answers, or sometimes a gene will come back positive without a specific or significant meaning. She demonstrated understanding and would like to pursue genetic screening Check SPEP, GHASSAN as we do not have prior results for this Patient advised to follow up in 2 months to follow up results of genetic testing. Case discussed with Dr. Victor. Yancy Pennington, DO Clinical Neurophysiology Fellow #[id number] I did not personally see this patient but discussed her with Dr. Pennington. The assessment and plan were formulated in discussion with me at the time of the visit and I agree with them as documented. Robert Victor MD 06/20/2017 documented in this encounter Plan of Treatment Upcoming Encounters Date Type Department Care Team (Late st Contact Info) Description 02/19/2025 9:00 AM EDT TH Visit (TeleHealth) [place] [address] Wyatt Higgins MD [facility] [place] [address] documented as of this encounter Results * Protein Electrophoresis, serum (06/19/2017 5:55 PM EDT) Total Prot Elec 6.8 6.1 - 8.0 gm/dL [facility] Albumin Elect 4.20 3.60 - 6.00 gm/dL [facility] Alpha1-Globulin 0.18 0.10 - 0.30 gm/dL [facility] Alpha2-Globulin 0.73 0.40 - 0.90 gm/dL [facility] Beta Globulin 0.81 0.50 - 1.00 gm/dL [facility] Gamma Globulin 0.88 0.50 - 1.30 gm/dL [facility] M1 Band Comments Below [facility] SPEP Comments See Note [facility] Comment: Immunofixation (GHASSAN) and quantitative immunoglobulin (SARAH) testing will be performed on this sample per MD request. Blood specimen (specimen) 06/19/2017 5:55 PM EDT 06/19/2017 6:06 PM EDT Narrative Resulting Agency Comment Spec In Lab Robert Victor MD CHEMISTRY ORDERAB LES Performing Organization Address [facility] Co de Phone Number [facility] [place] [address] * Miscellaneous Lab request (06/19/2017 5:55 PM EDT) [facility] Lab Result Request received in lab. 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
--- OUTSIDE RECORDS SUMMARY | 2024-05-15 11:11 | XMS_ITS | Encounter Summary ---
Author Organization [facility] [place] [address] Care Team Providers Care Director Of Teenage Activities Name Role Phone Nanda Read MD Primary Care Provider [phone] Reason for Visit * Reason Comments Follow Up Surgery Encounter Details Date Type Department Care Team (Late st Contact Info) Description 03/09/2016 10:40 AM EDT Office [place] [address] Jose Mai MD [facility] [place] [address] Postoperative visit Social History Tobacco Use Types Packs/Day Years [...] Sign Reading Time Taken Comments Blood Pressure 102/50 03/09/2016 10:56 AM EDT Pulse 93 03/09/2016 10:56 AM EDT Temperature 37.1 ??C (98.8 ??F) 03/09/2016 10:56 AM E DT Respiratory Rate 18 03/09/2016 10:56 AM EDT Oxygen Saturation 95% 03/09/2016 10:56 AM EDT Inhaled Oxygen Concentration - - Weight 98.1 kg (216 lb 4.8 oz) 03/09/2016 10:56 AM EDT Height 160 cm (5' 3) 03/09/2016 10:56 AM EDT Body Mass Index 38.32 03/09/2016 10:56 AM EDT documented in this encounter Patient Instructions * Patient Instructions* Taylor Vance - 03/09/2016 8:44 AM EDT Bariatric Surgery Program First Post-operative Follow up visit Contact information: [facility] Admin coordinator Rosey: [phone] Dietitian: [phone] Surgeons/ nurse practitioner: [phone] Nurse line: [phone] Your excess body weight lost: 26.1% Next follow up visit: at 4 months post-op. Testing: Labwork will be done at your 4 month post op check. If you have labwork done by your doctor before that date, please have it sent to the Bariatric Surgery Program. Post surgery Medications: 1. Medication to prevent ulcer, as prescribed prior to surgery, needs to continue until you are at least 3 months post surgery, or as indicated by your primary care doctor. 2. If you have a gallbladder, continue to take Ursodiol 300 mg twice daily for a total of 6 months after surgery to prevent gallstones from forming, and to shrink any gallstones that may be present. Vitamin and mineral supplementation recommendations: Start taking ALL supplements. The following vitamins are recommended: ??? Multivitamins with minerals twice daily- needs to be an under 50 multivitamin that contains iron. (No senior multivitamins. (or once daily if a Bariatric specific multivitamin such as procare). [...] periods, iron deficiency or anemia. Nutrition recommendations: Aim for 3 ounces of protein at all meals, avoid high carbohydrate foods,especially crackers, popcorn, and cereal. Consume protein at all meals and snacks. - Your Daily Goals: ??? 3 meals per day. Snacks if physically hungry or you need to increase your protein and/or calories (choose protein and/or fruit) ??? 60 grams protein per day (20 grams per meal) ??? 48-64 oz of non-caloric and hydrating fluids per day (6-8, 8 oz cups) Activity: ??? Aim for 30 minutes of exercise daily, 5 days a week of both cardio and strength training exercises. Alcohol: should be used sparingly, no more than one drink per occasion. Alcohol is a source of empty calories and can cause ulcers and vitamin and mineral deficiencies. Studies have noted that there is an increased risk of alcohol dependence after surgery. control for women of child bearing age: is recommended for at least 18-24 months after surgery. Call us: ??? If you have concerns. ??? If you have unexplained abdominal pain. ??? if you see blood in your stool or vomit blood ??? If you have prolonged vomiting Post Surgery Support Group: Our post surgery support group meets on the first Monday of every month from 1-2 PM at [facility] Internet resources: Www.[employer] www.[facility] Www.[employer] Www.Choosemyplate.gov Www.[employer] [facility] facebook page: https://www.facebook.com/[email or web address]ric[facility]gery Bariatric surgery apps- [facility] Post-lexy Books: - Recipes for Life after Weight Loss Surgery by Ashli Wiseman (2012) - Shrink Yourself by Dr Stephen Dial documented in this encounter Progress Notes * Jose Mai MD - 03/09/2016 11:40 AM EDT Martha Benoit is a 50-year-old female who presents in followup. She is status post a laparoscopic Janeth-en-Y gastric bypass. This was done on 3/14/15. She initially had done well. However, she was readmitted on 01/25/16 due to difficulty taking in adequate p.o. While she was in the hospital, she underwent a barium swallow which did not show any abnormal anatomy other than the gastric bypass surgery, and since going home the second time, she has continued to struggle with compliance with dietary recommendation as well as dietary supplements. Just prior to seeing me today she saw Taylor, our bariatric dietitian, had began emphasis on eating correctly after gastric bypass surgery. As I see her today, her trocars have healed relatively well. Two of them still have a small remaining scab. Her abdomen is soft, flat and nontender. She has not had any postoperative complications but acknowledged that it has been a struggle complying with the dietary and supplemental recommendations. I strongly encouraged her to continue followup with the program and to continue to follow our dietary and nutritional recommendations, and we will see her back in four months' time. * Taylor Vance - 03/09/2016 7:55 AM EDT BSP Nutrition First Post-operative Follow up SUBJECTIVE: Topics Discussed/Patient Concerns: ?? Patient arrived late to appointment today. Has an appointment with endo today as well. ?? Readmitted on 01/25/16 for nausea and vomiting. ?? Pt does not have any concerns anymore, she feels whatever happens, happens. She finds it too difficult to take all of her medications and supplements and is only taking what she can. ?? Blood sugars are high, she finds her blood sugar is harder to control now after surgery, runningin the 300's. She does take insulin. OBJECTIVE: Date of Bariatric Surgery: 01/04/16 Type of Bariatric Surgery: Laparoscopic Janeth-en-Y Gastric Bypass Weight History: Date Weight (lbs) HT BMI Comments Summer 2014 260# Highest Weight (pt reported) 07/01/14 249# 63 44.1 Initial program weight 11/03/15 247# 63 43.7 1st pre-op visit 01/04/16 249# EWL % 44.1 Surgery 03/09/16 216# 26.1% 38.2 2 months post-op 4 months post-op Goal weight: none, rough idea [...] is supportive of her getting bariatric surgery. MEDICATIONS: Taking ulcer prevention medication: Once a day, large pill and it's difficult for her to take Taking Ursodiol (if appropriate): once a day Opioid/ pain medication use: taking oxycodone, has been taking it since before surgery. Vitamin/Mineral Supplements (reported by patient): Supplement Type Brand/Form Dosage/Amount Frequency Comments Multivitamin flittanyaes 1 Twice daily Calcium none Doesn't want to add another supplement Vitamin B12 Has rx but she isn't taking it Iron Tried taking it but stopped 1.5 weeks ago, felt constipated, stopped taking 1.5 weeks ago Vitamin D3 rx 50,000 IU Twice weekly Tracking Intake: none Daily Oral Intake: Breakfast Cream of wheat w/ milk Or handful/ 15-20 cheerios or 1/4 cup mini shredded wheat w/ 1% or skim milk Or beef jerkey AM Snack Lunch 4-5 slices beef jerkey or 3 bites lean hamburger with 2 tsp low fat cottage cheese or pea pods or broccoli Or small can of ham and beans or 1/4 cup chili PM Snack Sometimes mini indiv unbuttered popcorn Dinner Popcorn or 4-5 ritz crackers w/ cheddar cheese or spreadable cheese HS Snack Whole cucumber Starting to try to eat a small amount of chicken Protein/ estimated grams/day: 20-30 grams Calories/ estimated/day: ~800 kcal Hydrating fluids/ oz/ day: 4 24 oz water bottles or CL, milk in cereal and sometimes 1 cup of milk Soda: none ETOH: none Caffeine: 1/4 cup coffee w/ milk once a week at the most Meals per day: 2-3/ day Other: ?? Feels full/satisfied after eating: yes ?? Spends at least 20 minutes eating each meal: eats a meal over the course of 1 hour, can take 2-3bites and then has to stop and wait 15 minutes, or else she vomits ?? Vomiting/ regurgitation: Vomited twice this past week which has improved, she was vomiting 2-3 times per day everyday. She believes she wasn't recognizing that she was too full and that's what wascausing the nausea. She now knows not to take 1 bite too many. ?? Nausea: Often, all the time ?? Constipation/diarrhea: Bowel movement once every 3 days. Has miralax. Food Allergies/Intolerances: Eggs and chicken Exercise: Walking around, going to stores with her family, although walking is tough for her. ASSESSMENT: Patient s/p bariatric surgery with 26.1% EWL. Weight down 33# x 2 months. Patient is not meeting protein goal, she is not consuming high protein foods or drinking protein shakes. Patient is consumingmore carbohydrates and high sugar foods. Discussed with patient the importance of consuming high protein foods at all meals and snacks and avoiding high sugar foods, especially since she has been having trouble with her blood sugars. Reviewed some high protein foods that are usually well tolerated for patient to start trying and reviewed appropriate portions. Patient is meeting fluid goal. Patient is not compliant with supplements, she is having a difficult time taking all of her medications and supplements. Reviewed the importance of additional Calcium, B12, and Iron along with her MVI and diet now that she has had bariatric surgery. Recommend patient start calcium, B12, and iron as soon as possible. Patient is physically active by walking around stores, although walking is difficult forher. PLAN: ?? Evaluation by Dr. Mai today ?? Provided support/encouragement and reinforced importance of meeting nutritional goals. ?? Reviewed nutrition and vitamin and mineral supplement recommendations (see patient instructions). ?? Written recommendations provided. Patient agreed with these and verbalized adequate understanding ?? follow up at 4 months post surgery with labwork. documented in this encounter Plan of Treatment Upcoming Encounters Date Type Department Care Team (Late st Contact Info) Description 02/19/2025 9:00 AM EDT TH Visit (TeleHealth) [place] [address] Wyatt Higgins MD [facility] [place] [address] documented as of this encounter Visit Diagnoses Diagnosis Postoperative visit documented in this encounter Care Teams Director Of Teenage Activities Relationship Specialty Start Date End Date Nanda Read MD [facility] [address] [place] [address] PCP - General 09/14/10 06/06/18 documented as of this encounter
--- OUTSIDE RECORDS SUMMARY | 2024-05-15 11:11 | XMS_ITS | Encounter Summary ---
[place] [address] Care Team Providers Care Corrugator Machine Operator Name Role Phone Nanda Read MD Primary Care Provider [phone] Encounter Details Date Type Department Care Team (Latest Contact Info) Description 07/05/2016 1:50 PM EDT [place] [address] Type 2 diabetes, uncontrolled, with neuropathy; Vitamin D deficiency; Iron deficiency anemia, unspecified iron deficiency anemia type; Type 2 diabetes, controlled, with neuropathy; Diabetes mellitus type 2, uncontrolled; Disorder of iron metabolism; Status post bariatric [...] AM EDT TH Visit (TeleHealth) [place] [address] Wyatt Higgins MD [facility] [place] [address] documented as of this encounter Procedures Procedure Name Priority Date/Time Associated Diagnosis Comments U ALBUMIN/CRE RATIO STAT 07/05/2016 2 :21 PM EDT Diabetes mellitus type 2, uncontrolled Type 2 diabetes, uncontrolled, with neuropathy PTH Routine 07/05/2016 2:18 PM EDT Type 2 diabetes, uncontrolled, with neuropathy Vitamin D deficiency Iron deficiency anemia, unspecified iron deficiency anemia type HEMOGRAM Routine 07/05/2016 2:18 PM EDT Disorder of iron metabolism Status post bariatric surgery Intestinal malabsorption, unspecified type VITAMIN B1, WHOLE BLOOD Routine 07/05/2016 2:18 PM EDT Status post bariatric surgery Intestinal malabsorption, unspecified type IRON AND TIBC Routine 07/05/2016 2:18 PM EDT Type 2 diabetes, uncontrolled, with neuropathy Vitamin D deficiency Iron deficiency anemia, unspecified iron deficiency anemia type VITAMIN D, 25-HYDROXY Routine 07/05/2016 2:18 PM EDT Type 2 diabetes, uncontrolled, with neuropathy Vitamin D deficiency Iron deficiency anemia, unspecified iron deficiency anemia type C-PEPTIDE Routine 07/05/2016 2:18 PM EDT Type 2 diabetes, controlled, with neuropathy PREALBUMIN Routine 07/05/2016 2:18 PM EDT Status post bariatric surgery Intestinal malabsorption, unspecified type HEMOGLOBIN A1C Routine 07/05/2016 2:18 PM EDT Type 2 diabetes, uncontrolled, with neuropathy FOLATE, SERUM Routine 07/05/2016 2:18 PM EDT Status post bariatric surgery Intestinal malabsorption, unspecified type FERRITIN Routine 07/05/2016 2:18 PM EDT Disorder of iron metabolism Status post bariatric surgery Intestinal malabsorption, unspecified type VITAMIN B12 Routine 07/05/2016 2:18 PM EDT Type 2 diabetes, uncontrolled, with neuropathy Vitamin D deficiency Iron deficiency anemia, unspecified iron deficiency anemia type COMPREHENSIVE METABOLIC PANEL (NON-FASTING) Routine 07/05/2016 2:18 PM EDT Status post bariatric surgery Intestinal malabsorption, unspecified type documented in this encounter Results * Microalbumin, urine, random (07/05/2016 2:21 PM EDT) Alb/Cr Ratio, Random 7 0 - 29 mcg/mg Cr [facility] Comment: Reference Ranges: <30 mcg/mg: [...] 362 U Albumin Conc, Random 3.7 mg/L [facility] U Creatinine 54 mg/dL [facility] Urine specimen (specimen) 07/05/2016 2:21 PM EDT 07/05/2016 3:12 PM EDT Narrative Resulting Agency Comment Spec In Lab Judith Reinoso MD URINE ORDERABLES [facility] [place] [address] * Folate, serum (07/05/2016 2:18 PM EDT) Folate Lvl 18.6 4.8 - 24.2 ng/mL [facility] Blood specimen (specimen) 07/05/2016 2:18 PM EDT 07/05/2016 3:00 PM EDT Narrative Resulting Agency Comment Spec In Lab Jose Mai MD CHEMISTRY ORDERABLE S Performing Organization Address [facility] de Phone Number [facility] [place] [address] * (ABNORMAL) Vitamin B1, whole blood (07/05/2016 2:18 PM EDT) Vit B1 Lvl WB 213(H) 70 - 180 nmol/L [facility] Comment: INTERPRETIVE INFORMATION: Vitamin B1, Whole Blood This assay measures the concentration of thiamine diphosphate (TDP), the primary active form of vitamin B1. Approximately 90 percent of vitamin B1 present in whole blood is TDP. Thiamine and thiamine monophosphate, which comprise the remaining 10 percent, are not measured. Test developed and characteristics determined by [facility]. See Compliance Statement B: [employer]CS Test Performed by: [facility] [address] [place] [address] Blood specimen (specimen) 07/05/2016 2:18 PM EDT 07/05/2016 3:18 PM EDT Narrative Resulting Agency Comment Spec In Lab Jose Mai MD CHEMISTRY ORDERABLE S Performing Organization Address [facility] Co de Phone Number [facility] [place] [address] * Ferritin (07/05/2016 2:18 PM EDT) Ferritin 54 30 - 400 ng/mL [facility] Comment: Pediatric reference ranges not verified at [facility], interpret with caution. Reference ranges for females greater than 50 years of age approach values for men, i.e., 30-400 ng/mL. Blood specimen (specimen) 07/05/2016 2:18 PM EDT 07/05/2016 3:00 PM EDT Narrative Resulting Agency Comment Spec In Lab Jose Mai MD CHEMISTRY ORDERABLE S Performing Organization Address City/[facility]/ZIP Co de Phone Number [facility] [place] [address] * Prealbumin (07/05/2016 2:18 PM EDT) Pathologist [facility] Prealbumin 23 20 - 40 mg/dL [facility] Comment: Prealbumin levels are generally lower in the pediatric population; adult concentrations are usually attained near puberty. Blood specimen (specimen) 07/05/2016 2:18 PM EDT 07/05/2016 3:00 PM EDT Narrative Resulting Agency Comment Spec In Lab Jose Mai MD CHEMISTRY ORDERABLE S Performing Organization Address [facility] Co de Phone Number [facility] [place] [address] * (ABNORMAL) Comprehensive metabolic panel (non-fasting) (07/05/2016 2:18 PM EDT) [facility] Glucose Lvl 117 65 - 199 mg/dL [facility] Comment:Diabetes: >=200 mg/d L plus symptoms BUN 9 8 - 18 mg/dL [facility] Creatinine 0.55(L) 0.70 - 1.20 mg/dL [facility] Comment: Please note that the pediatric reference intervals supplied above were not validated at [facility]. Results from pediatric patients should be interpreted in conjunction to the patient's age, height and muscle mass. Sodium 143 135 - 145 mmol/L [facility] Potassium 4.1 3.5 - 5.0 mmol/L [facility] Comment: Please note: ??Patients with WBC >100,000 may have falsely elevated Potassium levels. ??For accurate Potassium quantification in these patients send serum separator tube (gold top) for subsequent determinations. ??Contact the Clinical Chemistry Laboratory if there are any questions. Chloride 101 98 - 107 mmol/L [facility] CO2 25 22 - 31 mmol/L [facility] Anion Gap 17(H) 5 - 15 mmol/L [facility] Calcium 9.3 8.5 - 10.5 mg/dL [facility] Total Protein 7.6 6.1 - 8.0 gm/dL [facility] Albumin 3.8 3.2 - 5.2 gm/dL [facility] AST 18 0 - 30 unit/L [facility] ALT 18 0 - 30 unit/L [facility] Alk Phos 105(H) 40 - 104 unit/L [facility] Total Bilirubin 0.3 0.2 - 1.3 mg/dL [facility] Bili, Direct 0.1 0.0 - 0.3 mg/dL [facility] Estimated GFR >60 >=60 [facility] Comment: This estimated GFR (eGFR) [...] the following links into your internet browser. http://[employer]/DHnkdep http://[employer]/DHMCnkf Blood specimen (specimen) 07/05/2016 2:18 PM EDT 07/05/2016 3:00 PM EDT Narrative Resulting Agency Comment Spec In Lab Jose Mai MD CHEMISTRY ORDERABLE S [facility] [place] [address] * (ABNORMAL) Hemogram (07/05/2016 2:18 PM EDT) WBC 12.0(H) 4.0 - 9.5 x10(3)/[facility] RBC 5.17 4.00 - 5.21 x10(6)/[facility] Hemoglobin 14.0 11.7 - 15.5 gm/dL [facility] Hematocrit 43.5 35.7 - 45.8 % [facility] MCV 84.1 82.6 - 94.4 [facility] MCH 27.1 27.1 - 32.0 pg [facility] MCHC 32.2 31.7 - 35.0 gm/dL [facility] Platelets 250 145 - 357 x10(3)/[facility] RDWSD 42.2 37.0 - 46.0 [facility] RDWCV 13.6 11.5 - 14.1 % [facility] MPV 12.5 7.6 - 12.9 [facility] nRBC % Auto 0.0 % [facility] nRBC Abs Auto 0.000 0.000 - 0.000 x10(3)/[facility] Blood specimen (specimen) 07/05/2016 2:18 PM EDT 07/05/2016 3:00 PM EDT Narrative Resulting Agency Comment Spec In Lab Jose Mai MD HEMATOLOGY ORDERABL ES Performing Organization Address [facility] [place] [address] * C-peptide (07/05/2016 2:18 PM EDT) C-Peptide 4.2 1.1 - 4.4 ng/mL [facility] Comment: Test Performed by: [place] [address] Loading Machine Adjuster: Jose Sands II, M.D., Ph.D. Blood specimen (specimen) 07/05/2016 2:18 PM EDT 07/06/2016 8:49 AM EDT Narrative Resulting Agency Comment Spec In Lab Judith Reinoso MD CHEMISTRY ORDERAB LES Performing Organization Address City/[facility]/ZIP Co de Phone Number [facility] [place] [address] * PTH (07/05/2016 2:18 PM EDT) PTH 56 15 - 65 pg/mL [facility] Blood specimen (specimen) 07/05/2016 2:18 PM EDT 07/05/2016 3:00 PM EDT Narrative Resulting Agency Comment Spec In Lab Judith Reinoso MD CHEMISTRY ORDERAB LES [facility] [place] [address] * (ABNORMAL) Iron and TIBC (07/05/2016 2:18 PM EDT) Pathologist [facility] Iron 57 30 - 150 mcg/dL [facility] TIBC 298 250 - 450 mcg/dL [facility] Iron Saturation 19(L) 20 - 50 % [facility] Blood specimen (specimen) 07/05/2016 2:18 PM EDT 07/05/2016 3:00 PM EDT Narrative Resulting Agency Comment Spec In Lab Judith Reinoso MD CHEMISTRY ORDERAB LES Performing Organization Address City/[facility]/ZIP Co de Phone Number [facility] [place] [address] * VIT D Total Evaluation (07/05/2016 2:18 PM EDT) 25-OH Vit D Total 32 30 - 100 ng/mL [facility] Comment: Deficient <10 ng/mL Insufficient 10 to 29 ng/mL Sufficient 30 to 100 ng/mL Potential Intoxication >100 ng/mL According to the [place] National Osteoporosis Foundation, Vitamin D concentrations >30 ng/mL are sufficient to protect bone health. ??The National Kidney Foundation has similarly stated that patients with Vitamin D concentrations <30ng/mL should be considered to be insufficient or deficient. http://[employer]/DHMCnatlkidneyfoundation http://[employer]/[facility] Behavior[facility] HealthcaretD [employer] Vitamin D Immunoassay detects both 25-OH Vitamin D2 and 25-OH Vitamin D3, but only a total Vitamin D concentration is reported. Blood specimen (specimen) 07/05/2016 2:18 PM EDT 07/05/2016 3:00 PM EDT Narrative Resulting Agency Comment Spec In Lab Judith Reinoso MD CHEMISTRY ORDERAB LES Performing Organization Address [facility]/ZIP Co de Phone Number [facility] [place] [address] * Vitamin B12 (07/05/2016 2:18 PM EDT) Vitamin B-12 416 207 - 974 pg/mL [facility] Blood specimen (specimen) 07/05/2016 2:18 PM EDT 07/05/2016 3:00 PM EDT Narrative Resulting Agency Comment Spec In Lab Judith Reinoso MD CHEMISTRY ORDERAB LES Performing Organization Address [facility] Co de Phone Number [facility] [place] [address] * (ABNORMAL) Hemoglobin A1c (07/05/2016 2:18 PM EDT) Hemoglobin A1C 7.4(H) 4.3 - 5.6 % [facility] Comment: Reference Range: 4.3 - [...] 1, S67-74 Est Avg Gluc 166 mg/dL [facility] Comment: eAG equivalents for HbA1c percentages: HbA1c(%) ?eAG(mg/dL) 6.0 ?126 6.5 ?140 7.0 ?154 7.5 ?169 8.0 ?183 8.5 ?197 9.0 ?212 9.5 ?226 10.0 ? 240 Limitations: The eAG calculation has not been validated on women, individuals below 18 years old and above 70 years old, and individuals with hemoglobinopathies. Additional resources are available on the ADA website: http://[employer]OrderWithMe/DHMCadacalc Maurice GODINEZ, Marion J, Miriam R, et al. ??Translating the A1C assay into estimated average glucose values. ??Diabetes Care 2008:31(8):6214-7963. Blood specimen (specimen) 07/05/2016 2:18 PM EDT 07/05/2016 3:00 PM EDT Narrative Resulting Agency Comment Spec In Lab Judith Reinoso MD CHEMISTRY ORDERAB LES Performing Organization Address City/State/[facility] Co de Phone Number [facility] [place] [address] documented in this encounter Visit Diagnoses Diagnosis Type 2 diabetes, uncontrolled, with neuropathy Type II or unspecified type diabetes mellitus with neurological manifestations, uncontrolled Vitamin D deficiency Unspecified vitamin D deficiency Iron deficiency anemia, unspecified iron deficiency anemia type Type 2 diabetes, controlled, with neuropathy Type II or unspecified type diabetes mellitus with neurological manifestations, not stated as uncontrolled Diabetes mellitus type 2, uncontrolled Type II or unspecified type diabetes mellitus without mention of complication, uncontrolled Disorder of iron metabolism Other disorders of iron metabolism Status post bariatric surgery Bariatric surgery status Intestinal malabsorption, unspecified type documented in this encounter Care Teams Corrugator Machine Operator Relationship Specialty Start Date End Date Nanda Read MD [facility] [address] [place] [address] PCP - General 09/14/10 06/06/18 documented as of this encounter
--- OUTSIDE RECORDS SUMMARY | 2024-05-15 11:11 | XMS_ITS | Encounter Summary ---
Author Organization [facility]ly [facility] [place] [address] Care Team Providers Care Pig Machine Operator Helper Name Role Phone Nanda Read MD Primary Care Provider [phone] Encounter Details Date Type Department Care Team (Late st Contact Info) Description 02/02/2017 External Results [place] [phone] Judith Reinoso MD [facility] [place] [address] Type 2 diabetes, controlled, with neuropathy Social [...] TH Visit (TeleHealth) [place] [phone] Wyatt Higgins MD [facility] [place] [address] documented as of this encounter Procedures Procedure Name Priority Date/Time Associated Diagnosis Comments U ALBUMIN/CRE RATIO STAT 01/30/2017 Type 2 diabetes, controlled, with neuropathy HEMOGLOBIN A1C Routine 01/30/2017 Type 2 diabetes, controlled, with neuropathy BASIC METABOLIC PANEL (NON-FASTING) Routine 01/30/2017 Type 2 diabetes, controlled, with neuropathy documented in this encounter Results * (ABNORMAL) Hemoglobin A1c (01/30/2017) Hemoglobin A1C 8.1(CHIEF DIGITAL OFFICER AL/ABN) Blood specimen (specimen) 01/30/2017 Judith Reinoso MD CHEMISTRY ORDERAB LES * U Albumin/Cre Ratio (01/30/2017) Urine specimen (specimen) 01/30/2017 Judith Reinoso MD URINE ORDERABLES * (ABNORMAL) Basic Metabolic Panel (non-fasting) (01/30/2017) Glucose Lvl 244(CHIEF DIGITAL OFFICER AL/ABN) BUN 9(External Lab) Creatinine 0.40(EXTER NAL/ABN) Sodium 141(Resource Conservation Manager al Lab) Potassium 4.2(Resource Conservation Manager al Lab) Chloride 104(Resource Conservation Manager al Lab) Chol, Total 166(Resource Conservation Manager al Lab) Blood specimen (specimen) 01/30/2017 Judith Reinoso MD CHEMISTRY ORDERAB LES documented in this encounter Visit Diagnoses Diagnosis Type 2 diabetes, controlled, with neuropathy Type II or unspecified type diabetes mellitus with neurological manifestations, not stated as uncontrolled documented in this encounter Care Teams Pig Machine Operator Helper Relationship Specialty Start Date End Date Nanda Read MD [facility] [address] [place] [address] PCP - General 09/14/10 06/06/18 documented as of this encounter
--- OUTSIDE RECORDS SUMMARY | 2024-05-15 11:11 | XMS_ITS | Encounter Summary ---
Author Organization [facility] [place] [address] Care Team Providers Care Blanket Weaver Name Role Phone Nanda Read MD Primary Care Provider Encounter Details Date Type Department Care Team (Late st Contact Info) Description 05/01/2017 Orders [place] [address] Cathy Dillon, METROLOGIST [facility] [place] [address] Disorder of iron metabolism; Status post bariatric [...] AM EDT TH Visit (TeleHealth) [place] [address] Wyatt Higgins MD [facility] [place] [address] documented as of this encounter Results * (ABNORMAL) Ferritin (08/10/2017 9:30 AM EDT) [facility] Ferritin 25(L) 30 - 400 ng/mL [facility] Comment: Pediatric reference ranges not verified at [facility], interpret with caution. Reference ranges for females greater than 50 years of age approach values for men, i.e., 30-400 ng/mL. Blood specimen (specimen) 08/10/2017 9:30 AM EDT 08/10/2017 9:37 AM EDT Narrative Resulting Agency Comment Spec In Lab Cathy Dillon METROLOGIST CHEMISTRY ORDERAB LES [facility] [place] [address] * (ABNORMAL) Hemogram (08/10/2017 9:30 AM EDT) [facility] WBC 9.8(H) 4.0 - 9.5 x10(3)/[facility]OR[facility]ORY RBC 4.64 4.00 - 5.21 x10(6)/[facility] Hemoglobin 12.9 11.7 - 15.5 gm/dL [facility] Hematocrit 39.2 35.7 - 45.8 % [facility] MCV 84.5 82.6 - 94.4 fL [facility] MCH 27.8 27.1 - 32.0 pg [facility] MCHC 32.9 31.7 - 35.0 gm/dL [facility] Platelets 256 145 - 357 x10(3)/[facility] LAB[facility]ATORY RDWSD 39.9 37.0 - 46.0 fL [facility] RDWCV 13.0 11.5 - 14.1 % [facility] MPV 11.3 7.6 - 12.9 fL [facility] nRBC % Auto 0.0 % [facility] nRBC Abs Auto 0.000 0.000 - 0.000 x10(3)/mcL [facility] Blood specimen (specimen) 08/10/2017 9:30 AM EDT 08/10/2017 9:37 AM EDT Narrative Resulting Agency Comment Spec In Lab Cathy Dillon METROLOGIST HEMATOLOGY ORDERA BLES [facility] [place] [address] documented in this encounter Visit Diagnoses Diagnosis Disorder of iron metabolism Other disorders of iron metabolism Status post bariatric surgery Bariatric surgery status Intestinal malabsorption, unspecified type Iron deficiency Iron deficiency anemia, unspecified documented in this encounter Care Teams Blanket Weaver Relationship Specialty Start Date End Date Nanda Read MD [facility] [address] [place] [address] PCP - General 09/14/10 06/06/18 documented as of this encounter
--- OUTSIDE RECORDS SUMMARY | 2024-05-15 11:11 | XMS_ITS | Encounter Summary ---
Author Organization [facility] [place] [address] Care Team Providers Care Receiving Teller Name Role Phone MunozRuth jerome Lilibeth JUAREZ Primary Care Provider + Reason for Visit * Reason Comments Medication Refill Encounter Details Date Type Department Care Team (Late st Contact Info) Description 03/13/2017 Refill [place] [phone] Cathy Dillon APRN [facility] [place] [address] Social History Tobacco Use Types Packs/Day Years [...] AM EDT TH Visit (TeleHealth) [place] [phone] Wyatt Higgins MD [facility] [place] [address] documented as of this encounter Visit Diagnoses Not on filedocumented in this encounter Care Teams Receiving Teller Relationship Specialty Start Date End Date Ruth Munoz, [address] [place] [address] PCP - General Family Medicine 02/05/19 documented as of this encounter
--- OUTSIDE RECORDS SUMMARY | 2024-05-15 11:11 | XMS_ITS | Encounter Summary ---
Author Organization Formerly [facility] [place] [address] Care Team Providers Care Captain Fishing Vessel Name Role Phone Nanda Read MD Primary Care Provider [phone] Encounter Details Date Type Department Care Team (Late st Contact Info) Description 02/12/2016 Telephone [place] [address] Nany Tai, RD [facility] DR [place] [address] Social History Tobacco Use Types Packs/Day Years [...] Telephone Encounter - Nany Tai, RD - 02/12/2016 10:44 AM EDT I spoke with Martha today to see how she is doing s/p gastric bypass. She states she is doing so-so. Reports things are getting better but it's a slower process than she expected. She is frustrated that her BS are not better controlled at this point and commented she thinks it's actually worse nowthan before surgery. At this point, she regrets having bariatric surgery due to the fact her diabetes is not better controlled. She is not tracking her intake but notes it is improved. Does track herblood sugars but not consistently. Her energy level is low. States it takes a lot of effort to go to the store. Sometimes she will send someone else in to shop for her as she is too tired once she gets to the store. She has taken her grandchildren to the park but can only stay about 10 minutes. Her tolerance to solid food is improving. Notes that milk is better tolerated than water. Cooler water is tolerated best. She cannot tolerate chicken or eggs. States beef is OK and can tolerate beef jerky. She can also eat some vegetables such as broccoli and carrots. Notes she keeps her portions small. Martha provided feedback regarding improvements to our pre-operative education, which I will relay to the team. Encouraged Martha to continue to work towards her fluid and protein goals. We decided I would call her back in 2 weeks to check-in. Pt has our contact information for any questions. documented in this encounter Plan of Treatment Upcoming Encounters Date Type Department Care Team (Late st Contact Info) Description 02/19/2025 9:00 AM EDT TH Visit (TeleHealth) [place] [address] Wyatt Higgins MD [facility] DR [place] [address] documented as of this encounter Visit Diagnoses Not on filedocumented in this encounter Care Teams Captain Fishing Vessel Relationship Specialty Start Date End Date Nanda Read MD [facility] Gonzalez [address] [place] [address] PCP - General 09/14/10 06/06/18 documented as of this encounter
--- OUTSIDE RECORDS SUMMARY | 2024-05-15 11:11 | XMS_ITS | Encounter Summary ---
Author Organization [facility] [place] [address] Care Team Providers Care Sas Programmer Name Role Phone Nanda Read MD Primary Care Provider [phone] Reason for Visit * Reason Comments Medication Refill Encounter Details Date Type Department Care Team (Late st Contact Info) Description 06/28/2016 Ref[place] [address] Judith Reinoso MD [facility] [place] [address] Social History Tobacco Use Types Packs/Day Years [...] Telephone Encounter - Tracy Tavarez LPN - 06/29/2016 10:12 AM EDT R/c to patient who verifies that she did restart Invokana had been off Invokana only because she could not take the pills post gastric bypass. * Telephone Encounter - Tracy Tavarez LPN - 06/28/2016 3:35 PM EDT Rx request received for Invokana. Per office note 03/09/16 Ok to hold on invokana 100 mg qd while she is trying on 70/30 mix but ok to resume it if BG remains high post-meal later to reduce the need of insulin Called patient. No answer. Message left on v/m for patient to r/c to nurse regarding Rx request. Will verify if patient has resumed Invokana. documented in this encounter Plan of Treatment Upcoming Encounters Date Type Department Care Team (Late st Contact Info) Description 02/19/2025 9:00 AM EDT TH Visit (TeleHealth) [place] [address] Wyatt Higgins MD [facility] [place] [address] documented as of this encounter Visit Diagnoses Not on filedocumented in this encounter Care Teams Sas Programmer Relationship Specialty Start Date End Date Nanda Read MD [facility] Carlos [address] [place] [address] PCP - General 09/14/10 06/06/18 documented as of this encounter
--- OUTSIDE RECORDS SUMMARY | 2024-05-15 11:11 | XMS_ITS | Encounter Summary ---
Author Organization [facility] [place] [address] Care Team Providers Care Lead Network Engineer Name Role Phone Nanda Read MD Primary Care Provider [phone] Reason for Visit * Reason Comments Follow-up pt has questions jeremiah or to surgerystephon dos 06/29/17 Encounter Details Date Type Department Care Team (Late st Contact Info) Description 06/19/2017 3:45 PM EDT Office [place] [address] Chetan Lund MD [facility] [place] [address] Abdominal pannus Social History Tobacco Use Types [...] as of this encounter Progress Notes * Chetan Lund MD - 06/19/2017 3:45 PM EDT Plastic Surgery Follow Up Note Chetan Lund MD PCP: Nanda Read MD CC: Abdominal pannus HPI: Martha Benoit is a 51 y.o. female seen in my office today in follow up to finalize surgical plans for abdominal panniculectomy. The patient presents with a list of questions about the panniculectomy surgery. The patient has questions about proceeding with a bilateral thighplasty and BBR in addition to the panniculectomy. The patient reports she is very concerned about staying overnight in the hospital after surgery. The patient reports that she would like to proceed with surgery, but has concerns about her age and healing complications. The patient denies taking any antibiotics for her active intertrigo. Examination: female in no acute distress, comfortable. She was well oriented and asked appropriate questions throughout the visit. Abdomen: 2 tiered abdominal pannus effect with hooding over the umbilical remnant No obvious hernia Healed laparoscopic port incisions Active sub pannus intertrigo Grade 2: Panniculus extends to cover the genitalia Grade 3: Panniculus extends to cover the upper thigh Impression: Martha Benoit is a suitable candidate for panniculectomy which would likely correct herphysical symptomatology. We discussed the nature of the panniculectomy in full detail, including the placement of incisions. I explained to the patient that I do not recommend proceeding with a bilateral thighplasty and panniculectomy at the same time due to the involvement of recovery. We discussed that insurance will not cover a mastopexy, but it will most likely cover a BBR. I recommend discussing a thighplasty and BBR after the patient is healed from the panniculectomy. I explained that thepatient will have 2 drains placed during surgery and removed 1-2 weeks after surgery in the office.We discussed that dissolvable sutures are mostly used during surgery. I assured her that I am not planning on utilizing mak in the surgery. I explained that the patient will need to stay over 1 night in the hospital. We discussed the nature of the patient's diabetes in full detail. We discussedthat the patient will have her HgA1C tested prior to surgery. The patient would most likely need toget re- approved by her insurance if she would like to have surgery in October. I assured the patient she does not need to proceed with surgery at this time and may postpone it if she would like. I explained that the patient may appreciate some dog earring at the end of the incision line. We discussed in length that the patient is at a high risk of healing complications. I explained that this is not a cosmetic operation and that it is to improve her functionality. I assured the patient that we will do the procedure as cosmetically pleasing as possible. I explained to the patient that I will prescribe her an antifungal medication to help improve her active intertrigo before surgery. Plan: Proceed with surgery on 06/29/17 Prescribed antifungal medication IJono, am acting as scribe for Dr. Lund. All work documented was performed by Dr. Lund. ???I performed the above scribed service and agree with the accuracy of the note?? CHETAN LUND MD documented in this encounter Plan of Treatment Upcoming Encounters Date Type Department Care Team (Late st Contact Info) Description 02/19/2025 9:00 AM EDT TH Visit (TeleHealth) [place] [address] Wyatt Higgins MD [facility] [place] [address] documented as of this encounter Visit Diagnoses Diagnosis Abdominal pannus Localized adiposity documented in this encounter Care Teams Lead Network Engineer Relationship Specialty Start Date End Date Nanda Read MD [facility] [address] [place] [address] PCP - General 09/14/10 06/06/18 documented as of this encounter
--- OUTSIDE RECORDS SUMMARY | 2024-05-15 11:11 | XMS_ITS | Encounter Summary ---
Author Organization [facility] [place] [address] Care Team Providers Care General Clerk Name Role Phone Nanda Read MD Primary Care Provider [phone] Encounter Details Date Type Department Care Team (Late st Contact Info) Description 06/07/2017 External [place] [address] Robert Victor MD [facility] [place] [address] Social History Tobacco Use Types Packs/Day Years [...] AM EDT TH Visit (TeleHealth) [place] [address] Wyatt Higgins MD [facility] [place] [address] documented as of this encounter Procedures Procedure Name Priority Date/Time Associated Diagnosis Comments EMG SCAN Routine 06/05/2017 documented in this encounter Results * Scan Doc: EMG (06/05/2017) Robert Victor MD MEDIA MGR SCAN EX T ORDR/RSLT documented in this encounter Visit Diagnoses Not on filedocumented in this encounter Care Teams General Clerk Relationship Specialty Start Date End Date Nanda Read MD [facility] [address] [place] [address] PCP - General 09/14/10 06/06/18 documented as of this encounter
--- OUTSIDE RECORDS SUMMARY | 2024-05-15 11:11 | XMS_ITS | Encounter Summary ---
Author Organization [facility] [place] [address] Care Team Providers Care Director Of Environmental Services Name Role Phone MunozRuth jerome Lilibeth JUAREZ Primary Care Provider + Reason for Visit * Reason Comments Medication Refill Encounter Details Date Type Department Care Team (Late st Contact Info) Description 03/29/2017 [place] [phone] Cathy Dillon APRN [facility] [place] [address] Social History Tobacco Use Types Packs/Day Years [...] AM EDT TH Visit (TeleHealth) [place] [address] Wyatt Higgins MD [facility] [place] [address] documented as of this encounter Visit Diagnoses Not on filedocumented in this encounter Care Teams Director Of Environmental Services Relationship Specialty Start Date End Date Ruth Munoz, [address] [place] [address] PCP - General Family Medicine 02/05/19 documented as of this encounter
--- OUTSIDE RECORDS SUMMARY | 2024-05-15 11:11 | XMS_ITS | Encounter Summary ---
Author Organization [facility] [place] [address] Care Team Providers Care Modeling Instructor Name Role Phone Nanda Read MD Primary Care Provider [phone] Encounter Details Date Type Department Care Team (Late st Contact Info) Description 02/03/2016 Orders Only [place] [address] Judith Reinoso MD [facility] [place] [address] Type 2 diabetes, uncontrolled, with neuropathy; Vitamin D deficiency; Iron deficiency anemia, unspecified iron deficiency anemia type Social History Tobacco Use Types Packs/Day [...] as of this encounter Progress Notes * Judith Reinoso MD - 02/03/2016 2:45 PM EDT Phone note 02/03/16 Just called pt as we got a note from Cathy Moreno visit today that she is doing well after the surgerybut still using insulin. - Pt stated that she is only using sliding scale p.r.n (not U-500) and has not resumed DM pills as she cannot swallow metformin yet Rec: - Ok to resume the tiny pill of glipizideER 10 mg 1-2x/day for now (to use 1x/ day if she notes low BG with 2x/day). No need to resume metformin yet as it's a big pill. - To cont Novolog sliding scale p.r.n if high BG>150 QID as needed - She wants to return to see me for post-hosp chk on the same day with Dr. Mai in February and prefers morning => ok to add her into my schedule at 9:30a Mon or Tue (March 07-) and our corporate legal secretary will help coordinate her visits with Dr. Mai's office & let her know soon. Thanks. JUDITH REINOSO MD documented in this encounter Miscellaneous Notes * Addendum Note - Judith Reinoso MD - 02/05/2016 10:46 AM EDTAddended by: JUDITH REINOSO on: 02/05/2016 10:46 AM Modules accepted: Orders documented in this encounter Plan of Treatment Upcoming Encounters Date Type Department Care Team (Late st Contact Info) Description 02/19/2025 9:00 AM EDT TH Visit (TeleHealth) [place] [address] Wyatt Higgins MD [facility] [address] documented as of this encounter Results * PTH (07/05/2016 2:18 PM EDT) PTH 56 15 - 65 pg/mL [facility] Blood specimen (specimen) 07/05/2016 2:18 PM EDT 07/05/2016 3:00 PM EDT Narrative Resulting Agency Comment Spec In Lab Judith Reinoso MD CHEMISTRY ORDERAB LES [facility] [place] [address] * (ABNORMAL) Iron and TIBC (07/05/2016 2:18 PM EDT) Iron 57 30 - 150 mcg/dL [facility] TIBC 298 250 - 450 mcg/dL [facility] Iron Saturation 19(L) 20 - 50 % [facility] Blood specimen (specimen) 07/05/2016 2:18 PM EDT 07/05/2016 3:00 PM EDT Narrative Resulting Agency Comment Spec In Lab Judith Reinoso MD CHEMISTRY ORDERAB LES [facility] [place] [place] [address] * VIT D Total Evaluation (07/05/2016 2:18 PM EDT) 25-OH Vit D Total 32 30 - 100 ng/mL [facility] [...] be considered to be insufficient or deficient. http://Xumii/DHnatlkidneyfoundation http://Xumii/DHMCVitD The IDS iSYS Vitamin D Immunoassay detects both 25-OH Vitamin D2 and 25-OH Vitamin D3, but only a total Vitamin D concentration is reported. Blood specimen (specimen) 07/05/2016 2:18 PM EDT 07/05/2016 3:00 PM EDT Narrative Resulting Agency Comment Spec In Lab Judith Reinoso MD CHEMISTRY ORDERAB LES Performing Organization Address City/[facility]/ZIP Co de Phone Number [facility] [place] [address] * Vitamin B12 (07/05/2016 2:18 PM EDT) Vitamin B-12 416 207 - 974 pg/mL [facility] Blood specimen (specimen) 07/05/2016 2:18 PM EDT 07/05/2016 3:00 PM EDT Narrative Resulting Agency Comment Spec In Lab Judith Reinoso MD CHEMISTRY ORDERAB LES Performing Organization Address [facility] Co de Phone Number [facility] [place] [address] * (ABNORMAL) Hemoglobin A1c (07/05/2016 2:18 PM EDT) Hemoglobin A1C 7.4(H) 4.3 - 5.6 % [facility] [...] 1, S67-74 Est Avg Gluc 166 mg/dL [facility] Comment: eAG equivalents for HbA1c percentages: HbA1c(%) ?eAG(mg/dL) 6.0 ?126 6.5 ?140 7.0 ?154 7.5 ?169 8.0 ?183 8.5 ?197 9.0 ?212 9.5 ?226 10.0 ? 240 Limitations: The eAG calculation has not been validated on women, individuals below 18 years old and above 70 years old, and individuals with hemoglobinopathies. Additional resources are available on the ADA website: http://ShopEx.Linkpass/DHMCadacalc Maurice GODINEZ, Marion J, Miriam R, et al. ??Translating the A1C assay into estimated average glucose values. ??Diabetes Care 2008:31(8):5476-5975. Blood specimen (specimen) 07/05/2016 2:18 PM EDT 07/05/2016 3:00 PM EDT Narrative Resulting Agency Comment Spec In Lab Judith Reinoso MD CHEMISTRY ORDERAB LES Performing Organization Address City/State/[facility] Co de Phone Number [facility] [place] [address] documented in this encounter Visit Diagnoses Diagnosis Type 2 diabetes, uncontrolled, with neuropathy Type II or unspecified type diabetes mellitus with neurological manifestations, uncontrolled Vitamin D deficiency Unspecified vitamin D deficiency Iron deficiency anemia, unspecified iron deficiency anemia type documented in this encounter Care Teams Modeling Instructor Relationship Specialty Start Date End Date Nanda Read MD [facility] [address] [place] [address] PCP - General 09/14/10 06/06/18 documented as of this encounter
--- OUTSIDE RECORDS SUMMARY | 2024-05-15 11:11 | XMS_ITS | Encounter Summary ---
Author Organization [facility] [place] [address] Care Team Providers Care Member Of Technical Staff Name Role Phone Nanda Read MD Primary Care Provider Reason for Visit * Reason Comments Medication Refill Encounter Details Date Type Department Care Team (Late st Contact Info) Description 04/18/2017 Ref[place] [address] Judith Reinoso MD [facility] [place] [address] Social History Tobacco Use Types Packs/Day Years [...] AM EDT TH Visit (TeleHealth) [place] [address] Wyatt Higgins MD [facility] [place] [address] documented as of this encounter Visit Diagnoses Not on filedocumented in this encounter Care Teams Member Of Technical Staff Relationship Specialty Start Date End Date Nanda Read MD [facility] [address] [place] [address] PCP - General 09/14/10 06/06/18 documented as of this encounter
--- OUTSIDE RECORDS SUMMARY | 2024-05-15 11:11 | XMS_ITS | Encounter Summary ---
[place] [address] Care Team Providers Care Cane Feeder Name Role Phone Nanda Read MD Primary Care Provider [phone] Encounter Details Date Type Department Care Team (Latest Contact Info) Description 04/27/2017 10:55 AM EDT Laboratory Appointment Lab [address] [place] [address] Encounter for vitamin deficiency screening; Hair loss; Disorder of iron metabolism; Status post bariatric surgery; Intestinal malabsorption, unspecified type; Protein-calorie undernutrition; Abdominal pannus Social History Tobacco Use Types [...] Upcoming Encounters Date Type Department Care Team ( Contact Info) Description 02/19/2025 9:00 AM EDT TH Visit (TeleHealth) [place] [address] Wyatt Higgins MD [facility] [place] [address] documented as of this encounter Procedures Procedure Name Priority Date/Time Associated Diagnosis Comments VITAMIN B1, WHOLE BLOOD Routine 04/27/2017 11:12 AM EDT Encounter for vitamin deficiency screening Status post bariatric surgery Intestinal malabsorption, unspecified type IRON AND TIBC Routine 04/27/2017 11:12 AM EDT Disorder of iron metabolism Status post bariatric surgery Intestinal malabsorption, unspecified type PREALBUMIN Routine 04/27/2017 11:12 AM EDT Protein-calorie undernutrition Status post bariatric surgery Intestinal malabsorption, unspecified type HEMOGLOBIN A1C Routine 04/27/2017 11:12 AM EDT Abdominal pannus FOLATE, SERUM Routine 04/27/2017 11:12 AM EDT Encounter for vitamin deficiency screening Status post bariatric surgery Intestinal malabsorption, unspecified type FERRITIN Routine 04/27/2017 11:12 AM EDT Encounter for vitamin deficiency screening Hair loss Disorder of iron metabolism Status post bariatric surgery Intestinal malabsorption, unspecified type documented in this encounter Results * (ABNORMAL) Hemoglobin A1c (04/27/2017 11:12 AM EDT) Hemoglobin A1C 6.5(H) 4.3 - 5.6 % [facility] [...] Mellitus, Diabetes Care 2013; 36: Suppl. 1, O98-76 Est Avg Gluc 140 mg/dL [facility] Comment: eAG equivalents for HbA1c [...] into estimated average glucose values. ??Diabetes Care 2008:31(8):7226-4442. Blood specimen (specimen) 04/27/2017 11:12 AM EDT 04/27/2017 11:19 AM EDT Narrative Resulting Agency Comment Spec In Lab James Rosenthal MD CHEMISTRY ORDERABLES [facility] [place] [address] * Prealbumin (04/27/2017 11:12 AM EDT) Prealbumin 21 20 - 40 mg/dL [facility] Comment: Prealbumin levels are generally lower in the pediatric population; adult concentrations are usually attained near puberty. Blood specimen (specimen) 04/27/2017 11:12 AM EDT 04/27/2017 11:19 AM EDT Narrative Resulting Agency Comment Spec In Lab Cathy Dillon APRN CHEMISTRY ORDERAB LES Performing Organization Address City/[facility]/ZIP Co de Phone Number [facility] [place] [address] * Folate, serum (04/27/2017 11:12 AM EDT) Pathologist [facility] Folate Lvl >20.0 4.8 - 24.2 ng/mL [facility] Blood specimen (specimen) 04/27/2017 11:12 AM EDT 04/27/2017 11:19 AM EDT Narrative Resulting Agency Comment Spec In Lab Cathy Dillon APRN CHEMISTRY ORDERAB LES Performing Organization Address [facility] Co de Phone Number [facility] [place] [place] [address] * (ABNORMAL) Vitamin B1, whole blood (04/27/2017 11:12 AM EDT) [facility] Vit B1 Lvl WB 182(H) 70 - 180 nmol/L [facility] Comment: ADDITIONAL INFORMATION This test was developed and its performance characteristics determined by [facility] in a manner consistent with CLIA requirements. This test has not been cleared or approved by the U.S. Food and Drug Administration. Test Performed by: [facility] - [address] [address] Blood specimen (specimen) 04/27/2017 11:12 AM EDT 04/27/2017 11:25 AM EDT Narrative Resulting Agency Comment Spec In Lab Cathy Dillon APRN CHEMISTRY ORDERAB LES Performing Organization Address [facility] Co de Phone Number [facility] [place] [place] [address] * (ABNORMAL) Iron and TIBC (04/27/2017 11:12 AM EDT) [facility] Iron 51 30 - 150 mcg/dL [facility] TIBC 324 250 - 450 mcg/dL [facility] Iron Saturation 16(L) 20 - 50 % [facility] Blood specimen (specimen) 04/27/2017 11:12 AM EDT 04/27/2017 11:19 AM EDT Narrative Resulting Agency Comment Spec In Lab Cathy Dillon APRN CHEMISTRY ORDERAB LES Performing Organization Address City/[facility]/ZIP Co de Phone Number [facility] [place] [address] * Ferritin (04/27/2017 11:12 AM EDT) Ferritin 35 30 - 400 ng/mL [facility] Comment: Pediatric reference ranges not verified [place] [facility] interpret with caution. Reference ranges for females greater than 50 years of age approach values for men, i.e., 30-400 ng/mL. Blood specimen (specimen) 04/27/2017 11:12 AM EDT 04/27/2017 11:19 AM EDT Narrative Resulting Agency Comment Spec In Lab Cathy Dillon APRN CHEMISTRY ORDERAB LES Performing Organization Address City/[facility] Co de Phone Number [facility] [place] [address] documented in this encounter Visit Diagnoses Diagnosis Encounter for vitamin deficiency screening Screening for other and unspecified endocrine, nutritional, metabolic, and immunity disorders Hair loss Alopecia, unspecified Disorder of iron metabolism Other disorders of iron metabolism Status post bariatric surgery Bariatric surgery status Intestinal malabsorption, unspecified type Protein-calorie undernutrition Unspecified protein-calorie malnutrition Abdominal pannus Localized adiposity documented in this encounter Care Teams Cane Feeder Relationship Specialty Start Date End Date Nanda Read MD [facility] [address] [place] [address] PCP - General 09/14/10 06/06/18 documented as of this encounter
--- OUTSIDE RECORDS SUMMARY | 2024-05-15 11:11 | XMS_ITS | Encounter Summary ---
Author Organization [facility] [place] [address] Care Team Providers Care Landscaping Crew Leader Name Role Phone Nanda Read MD Primary Care Provider [phone] Reason for Referral * Consultation (Routine) - Closed Specialty Diagnoses / Procedures Referred By Patricio monsivais Referred To Contact Plastic Surgery Diagnoses Candidal intertrigo Symptomatic abdominal panniculus Cathy Dillon APRN [facility] [place] [address] Abril Machado MD [facility] [place] [address] Referral ID Status Reason Start Date Expiration Date V isits Requested Visits Authorized [id number] Closed Consult, Test & Treat 04/06/2017 04/06/2018 1 1 Reason for Visit * Reason Comments Follow-up Bariatric Surgery Pr ogram post-surgery follow up Encounter Details Date Type Department Care Team (Late st Contact Info) Description 04/06/2017 10:00 AM EDT Office Visit General Surgery at [place] [phone] Cathy Dillon APRN [facility] GENER[facility] [place] [phone] Symptomatic abdominal panniculus; Candidal intertrigo; Encounter for vitamin deficiency screening; Hair loss; Protein-calorie undernutrition; Disorder of iron metabolism; Status post bariatric [...] Sign Reading Time Taken Comments Blood Pressure 130/69 04/06/2017 9:53 AM EDT Pulse 79 04/06/2017 9:53 AM EDT Temperature - - Respiratory Rate - - Oxygen Saturation 98% 04/06/2017 9:53 AM EDT Inhaled Oxygen Concentration - - Weight 80.3 kg (177 lb) 04/06/2017 9:53 AM EDT Height - - Body Mass Index 31.35 02/06/2017 9:05 AM EDT documented in this encounter Patient Instructions * Patient Instructions* Taylor Vance - 04/06/2017 10:[address] [facility] Admin coordinator Rosey: [phone] Dietitian: [phone] Surgeons/ nurse practitioner: [phone] Nurse line: [phone] Testing: Labwork: May- when you see the neurologist Go to [facility], which is 1 flight below the General Surgery Clinic. Please note that you will always receive a letter with lab results and recommendations. Please readthis letter carefully and follow recommendations. The letter also contains information regarding your next lab draw. Next visit: Next spring when you see Dr. Reinoso Routine visits are done at 4.8,12, 18 and 24 months after surgery, and yearly thereafter. Please call [phone] if you do not receive an appointment by 3-4 weeks prior to the expected visit. Medications: 1. Increase multivitamin to twice a day 2. Further recommendations pending labwork. Referrals: Plastic surgery ?? Plastic surgery referral can be made after your weight loss has stabilized, no earlier than one year after surgery. ?? Having a plastic surgery appointment scheduled does not commit you to surgery or costs; considerit informational. You can plan on surgery later if you are not ready, or decline surgery. It is helpful to meet with the plastic surgeon to learn your options. ?? Pictures of the areas of sagging will be taken for insurance purposes ?? Check with your insurer for their guidelines, which generally include a BMI of less than 30 or 35, and the presence of chronic rashes. Not all insurers cover plastic surgery, particularly for the arms and legs ?? Make sure that rashes are documented by your primary care provider. ?? Body contouring surgery is more painful than bariatric surgery. Recovery from surgery is 4-6 weeks. Vitamins: The following vitamins are recommended: ??? [...] periods, iron deficiency or anemia. Nutrition recommendations: Consume protein at every meal and snack, such as yogurt, cottage cheese,nuts, deli meat, and low fat cheese. - Your Daily Goals: ?? 1,000-1,200 calories [...] risk of alcohol dependence after bariatric surgery. f non-prescribed drugs and treet drugs [...] of every month from 1-2 PM at [facility]- no registration required Nutrition and Activity apps- Baritastic, My Fitness Pal, Lose It, My Plate Internet resources: www.MyPronostic wwwLogi-Serve www.First Retail [email or web address]/blog [facility] facebook page: [email or web address].[email or web address]UR[facility]ariatricSurgery Books & Magazines: - Recipes for Life After Weight Loss Surgery by Ashli Wiseman - Shrink Yourself by Dr Stephen Dial - Eating Well - Cooking Light documented in this encounter Progress Notes * Taylor Vance - 04/06/2017 10:00 AM EDT Bariatric Surgery Program Nutrition Progress Note Encounter Type: follow up SUBJECTIVE: Topics Discussed/Patient Concerns: ?? No dietary concerns, just complains of hair loss and loose skin. OBJECTIVE: Date of Bariatric Surgery: 01/04/16 Type of Bariatric Surgery: Laparoscopic Janeth-en-Y Gastric Bypass Weight History: Date Weight (lbs) HT BMI Comments Summer 2014 260# Highest Weight (pt reported) 07/01/14 249# 63 44.1 Initial program weight 11/03/15 247# 63 43.7 1st pre-op visit 3/14/16 249# EWL % 44.1 Surgery 03/09/16 216# 26.1% 38.2 2 months post-op 07/05/16 189# 48.7% 33.5 6 months post-op 04/06/17 177# 58.8% 31.4 15 months post-op Goal weight: none, rough idea [...] Supplement Type Brand/Form Dosage/Amount Frequency Comments Multivitamin Hollister's chewable 1 daily Expensive and doesn't feel its necessary to increase Calcium none Vitamin B12 none Iron none Vitamin D3 rx 50,000 IU 2x/ week Every 3 days Tracking Intake: none Daily Oral Intake: eating small amounts every 2 hours, feels she is a constant snacker Breakfast 5-10 shredded wheat mini bites with milk Or orange AM Snack Cornnuts, cucumbers, or 2-3 crackers Lunch If out with friends might order a meal and eat a little bit of coleslaw or broccoli and 2 cubes of chicken If home makes 2 tbsp tuna on bed of lettuce and tomato PM Snack Lettuce or cucumbers or handful of grapes or small banana Dinner 2 tbsp beef or chicken usually with vegetables- peas or corn or broccoli HS Snack Cornnuts, cucumbers, or beef jerkey Protein/ grams per day: Less than 60 grams Hydrating fluids- oz/ day: 80 oz water or CL Soda: 4 oz per week if out with friends but she doesn't even like it ETOH: none Caffeine: 4 oz coffee with 2 tsp sugar and milk once a week if out Sweets: Sometimes but not a lot Meals per day: 6 small meals/ snacks ?? Feels full/satisfied after eating: yes ?? Feels hungry []never [x]sometimes []most of the time [] always ?? Drinks with meals: yes, water ?? Practices portion control: small plate ?? Spends at least 20 minutes eating each meal: 30 minutes for a sit down meal ?? Has had dumping syndrome: chocolate oatmeal cookie and ice cream Foods/Symptoms: felt like she wad going to , couldn't get out of bed, nauseas ?? In the past month, pt has vomited/regurgitated: none Food Allergies/Intolerances: milk, and broccoli fills her up very quickly Exercise: limited due to nerve damage but still goes out shopping with family. ASSESSMENT: Summary of Weight Loss: Patient's percent excess weight loss is 58.8% which is within the expected post- op bariatric surgery range. Weight down 12# x 9 months. Patient complains of hair loss and is not meeting her protein needs. Discussed the importance of consuming protein at every meal and snack and how it will help with her hair loss. Reviewed some high protein food options with patient. She is meeting her fluid needs. She is not compliant with supplements and complains they are expensive and she does not feel the need to take them. She is not active due to her nerve damage. NUTRITION INTERVENTION & MONITORING: ?? Provided support/encouragement and reinforced importance of meeting nutritional goals. ?? Reviewed nutrition and vitamin and mineral supplement recommendations (see patient instructions). ?? Written recommendations provided. Patient agreed with these and verbalized adequate understanding. ?? Evaluation by nurse practitioner today. ?? Handouts provided: One Year and Beyond (revised 01/2014) and supplement card. * Cathy Dillon - 04/06/2017 10:00 AM EDT Reason for visit: follow up S/P laparoscopic Janeth-en-Y gastric bypass on 01/04/16 Complications summary: Early Prolonged hospital stay. Admitted to [facility] on 01/24/16 with nausea and vomiting, failure to progress diet. Transfer to [facility] on 01/25/16 Late none Visits summary: Compliance [...] 177 31.4 58 Multi w. Iron QD Nl calcium or B12 D 50 K 2x week 02/06: Hg 13.1 Hct 40.6 . Iron 62 isat 19% B12 448 . Nl cmp nl x ALP 105 A1c 7.6 04/06: lab ordered, pending Screening/other: Date Evaluation Results 02/24/17 Primary care [...] chronic poor control preoperatively untreated until 2005: Improved post surgery. Reports using Novolog 70-30- 14-15 units twice a day, glipizide ER 10 mg BID, metformin 500 mg BID and Invokana 100 mg QD. A1c was 7.6 on 02/06 at [facility], was 8.1 on 4[facility], up from 7.4 at prior check. Off U 500 insulin and extenatide post surgery - preoperative treatment: exenatide, glipizide, U 500 insulin BID, Invokana, metformin - Complications: retinopathy, peripheral autonomic neuropathy, sees senior engineering tech for calluses, declines flu shot ??? GERD [...] ( with normal calcium on 11/03/15) preoperatively: repeat D was 27 in January, current treatment with vitamin D 50,000 units twice weekly ??? Iron deficiency preoperatively: repeat pending intolerant to iron, is taking multi with iron ??? Low B12 level preoperatively: resolved, is not taking B12 and is not interested in taking a supplement ??? Memory impairment, S/P evaluation by neurology [...] GI ENDOSCOPY performed by ALISA RICHARDS at [facility] END[facility]COPY Allergies Allergen Reactions ??? Codeine Phosphate Nausea And Vomiting Medications 02/06/17 0914 Medication Sig Taking? glipiZIDE (GLUCOTROL) 10 mg Tablet Take 10 mg by mouth 2 times daily (before meals). Yes BIOTIN ORAL Take by mouth. Yes ergocalciferol (ERGOCALCIFEROL) 50,000 unit Capsule Take 1 capsule by mouth every 3 days. Yes INVOKANA 100 mg Tablet TAKE 1 TABLET BY MOUTH ONCE DAILY Yes oxyCODONE-acetaminophen (PERCOCET) 10-325 mg Tablet Take 1 tablet by mouth every 4 hours as needed for Pain. Yes gabapentin (NEURONTIN) 300 mg Capsule Take 300 mg by mouth 3 times daily. Yes pediatric multivitamin with iron Tablet, Chewable Take 2 tablets by mouth daily. Yes insulin aspart protamine-insulin aspart 70/30 (NOVOLOG MIX 70-30 FLEXPEN) Insulin Pen Inject 15-30 Units subcutaneously 2 times daily (with meals). Yes pravastatin (PRAVACHOL) 20 mg Tablet Take 20 mg by mouth daily. Yes lidocaine (LIDODERM) 5 %(700 mg/patch) Place 1 patch onto the skin every 12 hours as needed. Yes baclofen (LIORESAL) 10 mg tablet Take 10 mg by mouth 4 times daily. Yes metFORMIN (GLUCOPHAGE) 500 mg tablet Take 500 mg by mouth 2 times daily (with meals). Yes omeprazole (PRILOSEC) 20 mg Capsule, Delayed Release(E.C.) Take 1 capsule by mouth daily. Changes to health/ evaluations/ social history since last visit: she saw Dr. Reinoso in follow upin January. She has an upcoming neurology evaluation at [facility] for bilateral hand and arm tingling. Shereports left shoulder pain. There has been no improvement in her neuropathy. She believes that she was poisoned by pesticides [place] a [place] She continues to require a walker for ambulation Subjective. Patient concerns at today's visit: she returns for follow up. She is grazing throughout the day, diet appears low in protein. She loves vegetables. She drinks lots of water. She continues to have chronic abdominal skinfold rashes, and applies medicated cream. She is wzsyic44% of the recommended multivitamin dose, and is not taking vitamin B12 or calcium, and is not interested in starting. Review of Systems (negative if left blank): Constitutional: [] fatigue [] pica Neurologic: [] paresthesias [] memory loss CV: [] treatment for hypertension or taking antihypertensive medication [ ] treatment for hyperlipidemia Pulmonary: [] sleep apnea symptoms [ ] treated for DAMIAN GI: [] GERD, dysphagia [] dumping [] abdominal pain, hernia [] nausea/vomiting [] blood in stool [] chronic diarrhea/ constipation ETIQUETTE TEACHER: [] LMP: [] control [] menorrhagia [+] post-menopause Skin: [+] redundant skin abdomen with skinfold rashes Heme/Lymph: [] excessive bruising [] blood donor in past year Psychiatric [] mental health concerns Other: Exercise/activity level: as per RD note Employment/social: disabled/ single Health-related habits: Tobacco: none Alcohol: none Dietary history: See dietitian note. Objective: General: 51 y.o. year-old female looks well. Heart: RRR Lungs: CTA bilaterally without wheezing Abdomen: soft, non-tender. Abdominal trocar sites well-healed, without evidence of hernia. Redundant heavy abdominal pannus extending on thighs two tiered abdominal effect. Active subpannus intertrigo Extremities:no edema Vital signs: BP 130/69 Pulse 79 Wt 80.3 kg (177 lb) SpO2 98% BMI 31.35 kg/m2 Assessment: Stable 15 months S/P gastric bypass, with loss of 58% of excess body weight. Significant improvements to comorbidities. Skinfold rashes Plan: ?? Recent visit with Dr. Reinoso and lab results reviewed ?? Discussion regarding body contouring, referred for plastic surgery evaluation. Encouraged to increase protein intake, which will promote healing after body contouring surgery ?? Next BSP visit: will coordinate same day as Dr Reinoso's visit next January if possible ?? Provide rx for omeprazole 20 mg daily x 1 year ?? Next labwork: ordered, pending. Martha prefers to hold on labwork today because she recently had labwork done. She will have the labwork done when she returns to see the neurologist in May ?? Additional vitamin and mineral supplement recommendations (*in addition to usual post surgery supplements, as noted below): as per RD note, increase multivitamin to BID, start B12, further recommendations pending lab results. ?? dietary/ exercise recommendations per RD ?? Advised to call if develops unexplained abdominal pain, concerns or questions ?? provided with a August 2013 edition of One Year and Beyond bariatric surgery, a resource regarding supplements, diet, recommendations for patients > 1 year post-operatively She was provided with a Bariatric [...] If labwork is done by the primary personal care attendant: please send a copy to the Bariatric Surgery Program, General Surgery Clinic, [facility], attention Cathy Dillon APRN. Questions regarding [facility] Bariatric Surgery Program patients: please call Denny Dillon APRN at [phone] or [phone] [phone]. E-mail: [email or web address] documented in this encounter Plan of Treatment Upcoming Encounters Date Type Department Care Team (Late st Contact Info) Description 02/19/2025 9:00 AM EDT TH Visit (TeleHealth) [place] [address] Wyatt Higgins MD [facility] [place] [address] Scheduled Referrals Name Type Priority Associated Diagnoses Orde r Schedule Referral to Plastic Surgery Outpatient Referral Routine Candidal intertrigo Symptomatic abdominal panniculus Ordered: 04/06/2017 documented as of this encounter Results * Prealbumin (04/27/2017 11:12 AM EDT) Prealbumin 21 20 - 40 mg/dL [facility] Comment: Prealbumin levels are generally lower in the pediatric population; adult concentrations are usually attained near puberty. Blood specimen (specimen) 04/27/2017 11:12 AM EDT 04/27/2017 11:19 AM EDT Narrative Resulting Agency Comment Spec In Lab Cathy Dillon INTERNET SALESPERSON CHEMISTRY ORDERAB LES Performing Organization Address City/[facility]/ZIP Co de Phone Number [facility] [place] [address] * Folate, serum (04/27/2017 11:12 AM EDT) Folate Lvl >20.0 4.8 - 24.2 ng/mL [facility] Blood specimen (specimen) 04/27/2017 11:12 AM EDT 04/27/2017 11:19 AM EDT Narrative Resulting Agency Comment Spec In Lab Cathy Dillon INTERNET SALESPERSON CHEMISTRY ORDERAB LES [facility] [place] [address] * (ABNORMAL) Vitamin B1, whole blood (04/27/2017 11:12 AM EDT) Pathologist [facility] Vit B1 Lvl WB 182(H) 70 - 180 nmol/L [facility] Comment: ADDITIONAL INFORMATION This test was developed and its performance characteristics determined by [facility] in a manner consistent with CLIA requirements. This test has not been cleared or approved by the U.S. Food and Drug Administration. Test Performed by: [facility] [place] [address] Blood specimen (specimen) 04/27/2017 11:12 AM EDT 04/27/2017 11:25 AM EDT Narrative Resulting Agency Comment Spec In Lab Cathy Dillon APRN CHEMISTRY ORDERAB LES Performing Organization Address City/[facility]/ZIP Co de Phone Number [facility] [place] [address] * (ABNORMAL) Iron and TIBC (04/27/2017 11:12 AM EDT) [facility] Iron 51 30 - 150 mcg/dL [facility] TIBC 324 250 - 450 mcg/dL [facility] Iron Saturation 16(L) 20 - 50 % [facility] Blood specimen (specimen) 04/27/2017 11:12 AM EDT 04/27/2017 11:19 AM EDT Narrative Resulting Agency Comment Spec In Lab Cathy Dillon APRN CHEMISTRY ORDERAB LES [facility] [place] [address] * Ferritin (04/27/2017 11:12 AM EDT) [facility] Ferritin 35 30 - 400 ng/mL [facility] Comment: Pediatric reference ranges not verified at [facility], interpret with caution. Reference ranges for females greater than 50 years of age approach values for men, i.e., 30-400 ng/mL. Blood specimen (specimen) 04/27/2017 11:12 AM EDT 04/27/2017 11:19 AM EDT Narrative Resulting Agency Comment Spec In Lab Cathy Dillon INTERNET SALESPERSON CHEMISTRY ORDERAB LES [facility] [place] [address] documented in this encounter Visit Diagnoses Diagnosis Symptomatic abdominal panniculus Localized adiposity Candidal intertrigo Candidiasis of skin and nails Encounter for vitamin deficiency screening Screening for other and unspecified endocrine, nutritional, metabolic, and immunity disorders Hair loss Alopecia, unspecified Protein-calorie undernutrition Unspecified protein-calorie malnutrition Disorder of iron metabolism Other disorders of iron metabolism Status post bariatric surgery Bariatric surgery status Intestinal malabsorption, unspecified type documented in this encounter Care Teams Landscaping Crew Leader Relationship Specialty Start Date End Date Nanda eRad MD [facility] [address] [place] [address] PCP - General 09/14/10 06/06/18 documented as of this encounter
--- OUTSIDE RECORDS SUMMARY | 2024-05-15 11:12 | XMS_ITS | Encounter Summary ---
[facility] [place] [address] Care Team Providers Care Wool Shearing Supervisor Name Role Phone Nanda Read MD Primary Care Provider [phone] Encounter Details Date Type Department Care Team (Late st Contact Info) Description 11/16/2015 Telephone [place] [address] Nany Tai, RD [facility] [place] [address] Social History Tobacco Use Types Packs/Day Years [...] Telephone Encounter - Nany Tai, RD - 11/16/2015 10:50 AM EST Martha called today with questions regarding vitamin and mineral supplementation after bariatric surgery. Advised Martha she cannot take gummy vitamins as they are not complete. She is going to buy Flintstones Complete. She was also concerned about taking too much iron, vitamin D and calcium if she adds the multivitamin on top of what she has already been prescribed. Rec. Thomas take the multivitamin as well as the supplements she was prescribed by her PCP and/or Cathy Dillon APRN and emphasized the need to follow-up as recommended by her PCP or Cathy Dillon to have labs checked. Pt understands the above. She is going to write a list of her medications/supplements to bring to her appointments tomorrow. Pt to call with further questions. documented in this encounter Plan of Treatment Upcoming Encounters Date Type Department Care Team (Late st Contact Info) Description 02/19/2025 9:00 AM EDT TH Visit (TeleHealth) [place] [address] Wyatt Higgins MD [facility] [place] [address] documented as of this encounter Visit Diagnoses Not on filedocumented in this encounter Care Teams Wool Shearing Supervisor Relationship Specialty Start Date End Date Nanda Read MD KIRILL D [address] [place] [address] PCP - General 09/14/10 06/06/18 documented as of this encounter
--- OUTSIDE RECORDS SUMMARY | 2024-05-15 11:12 | XMS_ITS | Encounter Summary ---
Author Organization [facility] [place] [address] Care Team Providers Care Veterinary Laboratory Diagnostician Name Role Phone Nanda Oh MD Primary Care Provider [phone] Reason for Visit * Auth/Cert - Closed Specialty Diagnoses / Procedures Referred By Patricio monsivais Referred To Contact Diagnoses Obesity Type 2 diabetes mellitus with unspecified complications Metabolic disorder, unspecified OBESITY Procedures PRO LAP GASTRIC BYPASS/BRADY-EN-Y PRO UPPER GI ENDOSCOPY, DIAGNOSTIC @LAPAROSCOPIC GASTROPLASTY, ENDOSCOPY, UPPER GI, DIAGNOSTIC, WITH OR WITHOUT SPECIMENS Referral ID Status Reason Start Date Expiration Date Visits Re quested Visits Authorized [id number] Closed 1 1 Encounter Details Date Type Department Care Team (Late st Contact Info) Description 01/04/2016 12:42 PM EDT - 01/04/2016 4:40 PM EDT Surgery [place] [id number] Yokasta Esquivel MD [facility] [address] [place] [address] @LAPAROSCOPIC GASTROPLASTY W/ BRADY-EN-Y CONSTRUCTION (WRVU 29.4) Social History Tobacco Use Types Packs/Day Years Used Date Smoking Tobacco: Never Smokeless Tobacco: Never Alcohol Use Standard Drinks/Week Comments No 0 (1 standard drink = 0.6 oz pur e alcohol) Sex and Gender Information Value Date Recorded Sex Assigned at Not on file Gender Identity Female 08/26/2018 10:19 PM EST Sexual Orientation Not on file documented as of this encounter Discharge Summaries * Magaly Diego PA - 01/05/2016 11:37 AM EDT General Surgery Discharge Summary Patient Name: Martha Benoit Patient Age: 50 y.o. Birthdate: 1965 Admit date: 01/04/2016 Discharge date and time: 01/06/2016 Attending Physician: Yokasta Esquivel MD Primary Diagnosis: Obesity Secondary Diagnosis: Type 2 DM; Hyperlipidemia; GERD Operations and Procedures: Laparoscopic Brady-en-Y Gastric Bypass with Intraoperative Upper Endoscopy Surgeons: Surgeon(s) and Role: * Yokasta Esquivel MD - Primary * Umberto Mcgill MD - Fellow History of Present Illness: Martha Benoit is a 49-year-old female who participated in the [facility].?? She is a woman that has had full participation in the [facility] program.?? She actually started off in the [facility] Program and for a number of reasons is no longer affiliated with that program.?? Overall she seems well informed and would like to proceed as soon as reasonable.?? She would like to proceed with a Brady-en-Y gastric bypass, and I think it is a reasonable option for her.?? Hospital Course: Martha Benoit is a 50 y.o. female who was admitted on 01/04/2016 for laparoscopic Brady-en-Y gastric bypass with intraoperative upper endoscopy. The operative course was uneventful. OnPOD#1 she was started on a Gastric bypass stage I diet, and when she tolerated that she was advanced to a Gastric bypass stage II diet. 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 She was voiding without difficulty. On POD# 1& 2 the dressings were dry and intact and the wounds were benign. She did not have a bowel movement prior to discharge but was passing flatus and taking PO without difficulty. Prior to discharge on POD# 2 Martha Benoit was afebrile, with stable vital signs. On POD# 2, she was discharged to home in stable condition. Vital Signs: Last value Range last 24hrs Temperature Temp: 36.7 ??C (98.1 ??F) Temp: [36.7 ??C (98.1 ??F)-38.2 ??C (100.8 ??F)] Heart Rate Heart Rate: 73 Heart Rate: [73-111] Blood Pressure BP: 132/72 mmHg BP: (101-139)/(45-72) Respiratory Rate Resp: 16 Resp: [16-18] SpO2 SpO2: 93 % SpO2: [93 %-97 %] Pertinent Lab Data: Recent Labs 03/16/16 0650 //16 0544 WBC 11.5* 12.4* HGB 11.1* 12.0 HCT 35.2 36.3 PLATELET 200 225 Recent Labs 03/16/16 0650 /15/16 0544 NA 138 138 K 3.5 3.7 CL 99 100 CO2 25 24 BUN 7* 10 CREATININE 0.35* 0.52* GLUCOSE 205* 236* CALCIUM 8.2* 7.9* Physical Exam: General: NAD, resting comfortably, pleasant, conversant HEENT: PERRL, anicteric sclerae CVS: RRR Pulm: CTAB Abd: soft, appropriately tender, non-distended. 6 port sites without evidence of edema, erythema orecchymosis. No s/s of drainage or infection. : no problems with voiding Skin: warm, dry Ext: no c/c/e Neuro: CN 2-12 grossly intact, nonfocal,moving all four extremities spontaneously Imaging: No results found. Condition at discharge: Stable Mental Status: awake and alert, oriented x 3 Medications: Your Medications New Medications Dose Details gabapentin 300 mg/6 mL (6 mL) Soln Commonly known as: NEURONTIN Take 12 mLs by mouth daily for 30 days. Replaces: gabapentin 300 mg Cap 600 mg Quantity: 360 mL Refills: 0 glipiZIDE 10 mg Tr24 Commonly known as: GLUCOTROL XL Take 1 tablet by mouth 2 times daily (before meals) for 30 days. Replaces: glipiZIDE 10 mg Tab 10 mg Quantity: 60 tablet Refills: 0 Insulin Lispro 100 unit/mL Inpn Commonly known as: HUMALOG Inject 2-12 Units subcutaneously 4 times daily as needed. 2-12 Units Quantity: 15 mL Refills: 0 ondansetron 4 mg Tbdl Commonly known as: ZOFRAN-ODT Take 1 tablet by mouth every 8 hours as needed for Nausea. 4 mg Quantity: 20 tablet Refills: 0 oxyCODONE 5 mg Tab Commonly known as: ROXICODONE Take 1-2 tablets by mouth every 4 hours as needed for Pain (Give 5mg for pain 1- 4; give 10mg for pain 5-10) for up to 14 days. 5-10 mg Quantity: 60 tablet Refills: 0 Continued medications, unchanged Dose Details baclofen 10 mg Tab Commonly known as: LIORESAL Take 10 mg by mouth 4 times daily. 10 mg Refills: 0 BD INSULIN SYRINGE ULT-FINE II 1 mL 31 x 5/16 Syrg USE WITH INSULIN TWO TIMES A DAY Generic drug: Insulin Syringe-Needle U-100 Quantity: 100 Syringe Refills: 12 Cyanocobalamin 1,[address] 1 tablet under the tongue daily. 1 tablet Quantity: 90 tablet Refills: 3 ergocalciferol 50,000 unit Cap Commonly known as: vitamin D Take 1 capsule by mouth twice a week for 48 doses. 1 capsule Quantity: 24 capsule Refills: 1 ferrous sulfate 325 mg (65 mg iron) Tab Take 1 tablet by mouth daily for 180 days. Take with vitamin C 500 mg to improve absorption 325 mg Quantity: 90 tablet Refills: 1 folic acid 1 mg Tab Commonly known as: FOLVITE Take 1 mg by mouth daily. 1 mg Refills: 0 Insulin Syringe-Needle U-100 1/2 mL 30 gauge x 5/16 Syrg Commonly known as: INSULIN SYRINGE by [facility].(Non-Drug; Combo Route) route 2 times daily. Using with insulin bid Quantity: 1 Box Refills: 4 KLOR-CON 10 ORAL Take 10 mEq by mouth 2 times daily. 10 mEq Refills: 0 levothyroxine 25 mcg Tab Commonly known as: SYNTHROID TAKE 1 TABLET BY MOUTH DAILY Quantity: 90 tablet Refills: 4 lidocaine 5 % Ptmd Commonly known as: LIDODERM Place 1 patch onto the skin every 12 hours as needed. 1 patch Refills: 0 metFORMIN 500 mg Tab Commonly known as: GLUCOPHAGE Take 500 mg by mouth 2 times daily (with meals). 500 mg Refills: 0 omeprazole 20 mg Cpdr Commonly known as: PriLOSEC Take 1 capsule by mouth daily for 270 days. 20 mg Quantity: 90 capsule Refills: 2 pravastatin 20 mg Tab Commonly known as: PRAVACHOL Take 20 mg by mouth daily. 20 mg Refills: 0 ursodiol 300 mg Cap Commonly known as: ACTIGALL Take 1 capsule by mouth 2 times daily for 180 days. Start at 2 weeks post op on 01/17. Take until 07/16/16 to prevent gallstones Start taking on: 01/18/2016 300 mg Quantity: 180 tablet Refills: 1 STOPPED Medications furosemide 40 mg Tab Commonly known as: LASIX gabapentin 300 mg Cap Commonly known as: NEURONTIN Replaced by: gabapentin 300 mg/6 mL (6 mL) Soln glipiZIDE 10 mg Tab Commonly known as: GLUCOTROL Replaced by: glipiZIDE 10 mg Tr24 insulin regular CONCENTRATE U-500 500 unit/mL Soln Commonly known as: humuLIN R U-500 Concentrated oxyCODONE-acetaminophen 10-325 mg Tab Commonly known as: PERCOCET Disposition: Home Allergies: Allergies Allergen Reactions ??? Codeine Phosphate Nausea And Vomiting ??? Meperidine Outpatient Services/Studies: No discharge procedures on file. Scheduled Appointments: Future Appointments Provider Department Dept Phone 01/21/2016 3:00 PM Judith Reinoso MD Endocrinology [phone] 01/27/2016 3:30 PM Yokasta Esquivel MD; BARIATRIC, [facility] General Surgery [phone] Instructions Given to Patient at Discharge: BARIATRIC SURGERY DISCHARGE INFORMATION CONTACT INFORMATION: [phone] Surgeons: Ki Multani, Sergei and Trus [phone] Computer Network Specialist: [phone] (Monday through Monday, 8:00 AM -5:00 PM) Dietitian: [phone] Non-business hours: [phone], ask for general surgeon diamond blender FOR EMERGENCIES: CALL 911 (trouble breathing, chest pain, severe abdominal pain or rapid heart beat>120 (30 beats in 15 seconds) CALL FOR ANY OF THE FOLLOWING: ??? Signs and symptoms of infection such as: o Redness or swelling o Drainage or bleeding o Fever over 100.5 F o Increased pain or discomfort at the incision site ??? Persistent vomiting or if you are unable to keep food or fluids down in a 24 hour period. ??? Signs and symptoms of a blood clot: new leg swelling or redness, pain in leg, shortness of breath ??? Any concerns, such as problems with urination, bowels, bleeding, pain or leg swelling BATHING AND WOUND CARE: You may shower at 2 days post-op. ??? Wash incisions with soap, water rinse, pat dry and leave open to air if not draining. ??? Steri-strips may be removed or will fall off in 5 days. Pat dry if they become wet. ??? Do not soak wound for 2 weeks after laparoscopic surgery and 3 weeks after open surgery. ACTIVITY, LIFTING AND DRIVING: Daily walking is encouraged as tolerated. ??? For laparoscopic surgery: there are no lifting restrictions. Lift when you feel comfortable. ??? Do not drive for 2 weeks. After [address] when comfortable and not taking narcotic pain medicine. DIET: follow Stage II diet for two weeks. ??? Log intake. Daily goals are: 48-64 ounces of fluids and 60 grams of protein. MEDICATIONS: For 2 WEEKS ONLY: LARGE pills (bigger than the size of a calcium pill) must be crushed, or broken into small pieces. ??? Pills smaller than the size of a Tylenol DO NOT need to be crushed. Not all medications can be crushed. Check with your pharmacist first. ?? BLOOD CLOT PREVENTION: ?? You do not meet scoring criteria to be discharged on medication to prevent blood clots. Be active, walk at least 4 times a day and do blood clot prevention exercises in your handbook on page 82. OBSTRUCTIVE SLEEP APNEA: use your CPAP after surgery at night and when napping. The effect of anesthesia and pain medication can decrease respirations. Follow up with the Sleep Center if pressure seems to be too high. ULCER PREVENTION: omeprazole 20 mg daily (or any medication you may currently take for heartburn/reflux) must be taken for 3 MONTHS after surgery: Take this to prevent ulcers, even if you do not haveheartburn. The prescription may be refilled after the 3 month course if you have heartburn or reflux. Omeprazole capsules contain enteric-coated, delayed-release granules. These granules should not be chewed or crushed. The capsules can be opened and the enteric-coated granules sprinkled on applesauce or yogurt, given with apple juice, or swallowed immediately with water. Prepare just prior to administration. Administer entire dosage. GALLSTONE PREVENTION: (ONLY if you have a gallbladder): ??? Take Ursodiol (Actigall) 300 mg twice a day. START: 2 weeks after surgery, take for 6 months then stop unless otherwise directed. The start date and end date are written on the prescription. PAIN MEDICATION: Take only if needed -Take the medication exactly as it is prescribed and make sure to read all instructions that come with the medication. -Over the next couple of days you should be requiring less of this medication to control you pain, so that eventually you will not need any at all. You do not have to take all of the medication that was prescribed, you may have some left over. -You may use tylenol in addition to this medication if your pain is not controlled. -Taking more than the prescribed amount of medication or using with alcohol or other drugs can cause you to stop breathing resulting in coma, brain damage or . -Opioids can slow reaction time, cause drowsiness or cloud judgement. No driving for 8 hours after any dose of opioid pain medication if one was prescribed for you. -Using this drug may cause addiction. While addiction is more common in people with a personal or family history of addiction, it can occur in anyone. -Opioids are at risk of being diverted by anyone with access to your home. Opioids should be storedin a safe and secure place, such as a locked cabinet or safe. -Unused opioids should be disposed of appropriately. They may be returned to a take-back location, or mixed with a small amount of water and poured over an undesirable waste such as used coffee grounds or cat litter. -Please note that most pain medications can cause constipation. You may use a stool softener such as Miralax to prevent this. MEDICATIONS TO AVOID FOR TWO MONTHS AFTER SURGERY: ??? Avoid anti-inflammatory non-steroidal medications, such as Advil, Aleve, etc. Refer to Medications that may increase the risk of bleeding in handbook. ??? If you take aspirin for your heart or to prevent strokes, continue as prescribed. PATIENTS WITH DIABETES: Check blood sugars four times a day, fasting, 2 hours after meals and if unwell. ??? If you see the diabetes team during your hospital stay, follow their diabetes care recommendations ??? Continue taking Metformin 500mg twice daily. ??? Your Glipizide has been changed to an extended-release form, but you should continue taking this twice daily as you had been before. ??? Your insulin is now changed to Humalog-this is still a quick acting insulin. Follow the slidingscale you had been following at home to determine how much insulin you should take. ??? Follow up with primary care provider or special effects specialist in 1-2 weeks. Bring meter to appointments. PATIENTS WITH HIGH BLOOD PRESSURE: Monitor your blood pressure regularly. ??? If you feel dizzy and have been drinking 48-64 ounces of fluid, have your blood pressure checked. ??? If your blood pressure is low, call your primary care provider. Keep a log to bring to your PCPappointments. PATIENTS WHO TAKE DIURETICS (MEDICATION FOR SWELLING WATER PILLS): ??? Check with your surgical team prior to discharge for instructions. In general, this medication can be decreased or stopped after surgery, since it may cause dehydration. ??? Monitor closely for increased swelling after discharge, and call your primary care doctor if swelling increases. ??? Lasix is a diuretic, and because of the risk of dehydration, it is recommended you no longer use this medication. Please discuss this change with your PCP. PATIENTS ON ANTI-DEPRESSANT OR MENTAL HEALTH MEDICATIONS: Do not stop or decrease your medications unless advised. Ongoing counseling is encouraged. VITAMIN AND MINERAL SUPPLEMENTATION: Vitamin B12 500 mcg pill daily. Complete multivitamin w/ minerals Chewable, one pill twice daily. After 2 weeks may take regular vitamin pills. Calcium Calcium citrate 600 mg with vitamin D 400 units twice a day between meals. Iron with vitamin C Take iron as instructed per Handbook- (only if you have anemia, iron deficiencyor regular menses) FOLLOW-UP CARE: ??? See your PCP 10-14 days after surgery for wound and vital signs check. ??? See your surgeon and dietitian at 3 weeks after surgery ??? See the dietitian and nurse practitioner at 4, 12, 18, and 24 months, then yearly for life. WOMEN OF CHILDBEARING AGE: ??? Fertility may increase with weight loss. Avoid for 18-24 months after surgery. Condoms alone are not acceptable as a form of control. Do not take control pills for the firstmonth after surgery. Signed: BERE Pérez 01/06/2016 Primary [place] Physician: NANDA OH MD [id number] / [facility] [id number] documented in this encounter Discharge Instructions * Discharge Instructions* Magaly Diego PA - 01/06/2016 10:05 AM EDT Scheduled Appointments: ?? Future Appointments?? Provider?? Department?? Dept Phone? 01/21/2016 3:00 PM?? Judith Reinoso MD?? Endocrinology?? [phone]? 01/27/2016 3:30 PM?? Yokasta Esquivel MD; BARIATRIC, GREENSKEEPER HEAD?? General Surgery?? [phone]? Instructions Given to Patient at Discharge: BARIATRIC SURGERY DISCHARGE INFORMATION CONTACT INFORMATION: [phone] Surgeons: Ki Multani Laycock and Bernarda [phone] Computer Network Specialist: [phone] (Monday through Monday, 8:00 AM -5:00 PM) Dietitian: [phone] Non-business hours: [phone], ask for general surgeon diamond blender FOR EMERGENCIES: CALL 911 (trouble breathing, chest pain, severe abdominal pain or rapid heart beat>120 (30 beats in 15 seconds) CALL FOR ANY OF THE FOLLOWING: ?? Signs and symptoms of infection such as: ? o?? Redness or swelling ? o?? Drainage or bleeding ? o?? Fever over 100.5 F ? o?? Increased pain or discomfort at the incision site ?? Persistent vomiting or if you are unable to keep food or fluids down in a 24 hour period. ?? Signs and symptoms of a blood clot: new leg swelling or redness, pain in leg, shortness of breath ?? Any concerns, such as problems with urination, bowels, bleeding, pain or leg swelling BATHING AND WOUND CARE: You may shower at 2 days post-op. ? Wash incisions with soap, water rinse, pat dry and leave open to air if not draining. ?? Steri-strips may be removed or will fall off in 5 days.?? Pat dry if they become wet. ?? Do not soak wound for 2 weeks after laparoscopic surgery and 3 weeks after open surgery. ACTIVITY, LIFTING AND DRIVING: Daily walking is encouraged as tolerated. ?? For laparoscopic surgery: there are no lifting restrictions. Lift when you feel comfortable. ?? Do not drive for 2 weeks.?? After [address] when comfortable and not taking narcotic pain medicine. DIET: follow Stage II diet for two weeks.? Log intake. Daily goals are: 48-64 ounces of fluids and 60 grams of protein. MEDICATIONS:?? For 2 WEEKS ONLY: LARGE pills (bigger than the size of a calcium pill) must be crushed, or broken into small pieces.? Pills smaller than the size of a Tylenol DO NOT need to be crushed. Not all medications can be crushed. Check with your pharmacist first. ? BLOOD CLOT PREVENTION:? You do not meet scoring criteria to be discharged on medication to prevent blood clots.?? Be active, walk at least 4 times a day and do blood clot prevention exercises in your handbook on page 82. ?? OBSTRUCTIVE SLEEP APNEA: use your CPAP after surgery at night and when napping. The effect of anesthesia and pain medication can decrease respirations.?? Follow up with the Sleep Center if pressure seems to be too high. ULCER PREVENTION: omeprazole 20 mg daily (or any medication you may currently take for heartburn/reflux) must be taken for 3 MONTHS after surgery: Take this to prevent ulcers, even if you do not haveheartburn. The prescription may be refilled after the 3 month course if you have heartburn or reflux.?? Omeprazole capsules contain enteric-coated, delayed-release granules. These granules should notbe chewed or crushed. The capsules can be opened and the enteric-coated granules sprinkled on applesauce or yogurt, given with apple juice, or swallowed immediately with water. Prepare just prior to administration. Administer entire dosage. GALLSTONE PREVENTION: (ONLY if you have a gallbladder): ?? Take Ursodiol (Actigall) 300 mg twice a day. START: 2 weeks after surgery, take for 6 months then stop unless otherwise directed. The start date and end date are written on the prescription. ? PAIN MEDICATION: Take only if needed -Take the medication exactly as it is prescribed and make sure to read all instructions that come with the medication. ?? -Over the next couple of days you should be requiring less of this medication to control you pain, so that eventually you will not need any at all. You do not have to take all of the medication that was prescribed, you may have some left over. ?? -You may use tylenol in addition to this medication if your pain is not controlled. -Taking more than the prescribed amount of medication or using with alcohol or other drugs can cause you to stop breathing resulting in coma, brain damage or . ?? -Opioids can slow reaction time, cause drowsiness or cloud judgement. No driving for 8 hours after any dose of opioid pain medication if one was prescribed for you. -Using this drug may cause addiction. While addiction is more common in people with a personal or family history of addiction, it can occur in anyone. -Opioids are at risk of being diverted by anyone with access to your home. Opioids should be storedin a safe and secure place, such as a locked cabinet or safe. ?? -Unused opioids should be disposed of appropriately. They may be returned to a take-back location, or mixed with a small amount of water and poured over an undesirable waste such as used coffee grounds or cat litter. ?? -Please note that most pain medications can cause constipation. You may use a stool softener such as Miralax to prevent this. MEDICATIONS TO AVOID FOR TWO MONTHS AFTER SURGERY: ? Avoid anti-inflammatory non-steroidal medications, such as Advil, Aleve, etc. Refer to Medications that may increase the risk of bleeding in handbook. ? If you take aspirin for your heart or to prevent strokes, continue as prescribed. PATIENTS WITH DIABETES: Check blood sugars four times a day, fasting, 2 hours after meals and if unwell. ?? If you see the diabetes team during your hospital stay, follow their diabetes care recommendations ?? Continue taking Metformin 500mg twice daily. ?? Your Glipizide has been changed to an extended-release form, but you should continue taking thistwice daily as you had been before. ? Your insulin is now changed to Humalog-this is still a quick acting insulin. Follow the sliding scale you had been following at home to determine how much insulin you should take. ?? Follow up with primary care provider or special effects specialist in 1-2 weeks.?? Bring meter to appointments. PATIENTS WITH HIGH BLOOD PRESSURE: Monitor your blood pressure regularly.? If you feel dizzy and have been drinking 48-64 ounces of fluid, have your blood pressure checked.? If your blood pressure is low, call your primary care provider. Keep a log to bring to your PCP appointments. PATIENTS WHO TAKE DIURETICS (MEDICATION FOR SWELLING WATER PILLS):? Check with your surgical team prior to discharge for instructions. In general, this medication can be decreased or stopped after surgery, since it may cause dehydration.? Monitor closely for increased swelling after discharge, and call your primary care doctor if swelling increases. ?? Lasix is a diuretic, and because of the risk of dehydration, it is recommended you no longer usethis medication. Please discuss this change with your PCP. PATIENTS ON ANTI-DEPRESSANT OR MENTAL HEALTH MEDICATIONS: Do not stop or decrease your medications unless advised.?? Ongoing counseling is encouraged. VITAMIN AND MINERAL SUPPLEMENTATION: Vitamin B12 ?? 500 mcg pill daily.?? Complete multivitamin w/ minerals?? Chewable, one pill twice daily.?? After 2 weeks may take regular vitamin pills.?? Calcium?? Calcium citrate 600 mg with vitamin D 400 units twice a day between meals. ?? Iron with vitamin C?? Take iron as instructed per Handbook- (only if you have anemia, iron deficiency or regular menses)?? FOLLOW-UP CARE: ?? See your PCP 10-14 days after surgery for wound and vital signs check. ?? See your surgeon and dietitian at 3 weeks after surgery ?? See the dietitian and nurse practitioner at 4, 12, 18, and 24 months, then yearly for life. WOMEN OF CHILDBEARING AGE: ? Fertility may increase with weight loss.?? Avoid for 18-24 months after surgery.?? Condoms alone are not acceptable as a form of control.?? Do not take control pills for the first month after surgery. ?? documented in this encounter Medications at Time of Discharge Medication Sig Dispensed Refills Start Date End Date lidocaine (LIDODERM) 5 %(700 mg/patch) Place 1 patch onto the skin every 12 hours as needed. gabapentin (NEURONTIN) 300 mg/6 mL (6 mL) Solution Take 12 mLs by mouth daily for 30 days. 360 mL 0 01/06/2016 02/05/2016 oxyCODONE (ROXICODONE) 5 mg Tablet Take 1-2 tablets by mouth every 4 hours as needed for Pain (Give 5mg for pain 1-4; give 10mg for pain 5-10) for up to 14 days. 60 tablet 0 01/06/2016 01/20/2016 ondansetron (ZOFRAN-ODT) 4 mg Tablet, Rapid Dissolve Take 1 tablet by mouth every 8 hours as needed for Nausea. 20 tablet 0 01/06/2016 01/27/2016 glipiZIDE (GLUCOTROL XL) 10 mg Tablet Extended Rel 24 hr Take 1 tablet by mouth 2 times daily (before meals) for 30 days. 60 tablet 0 01/06/2016 02/03/2016 Insulin Lispro (HUMALOG) 100 unit/mL Insulin Pen Inject 2-12 Units subcutaneously 4 times daily as needed. 15 mL 0 01/06/2016 04/06/2017 ursodiol (ACTIGALL) 300 mg Capsule Take 1 capsule by mouth 2 times daily for 180 days. Start at 2 weeks post op on 01/17. Take until 07/16/16 to prevent gallstones 180 tablet 1 01/18/2016 07/16/2016 omeprazole (PRILOSEC) 20 mg Capsule, Delayed Release(E.C.) Take 1 capsule by mouth daily for 270 days. 90 capsule 2 11/13/2015 10/02/2016 ergocalciferol (VITAMIN D) 50,000 unit Capsule Take 1 capsule by mouth twice a week for 48 doses. 24 capsule 1 11/09/2015 04/22/2016 ferrous sulfate 325 mg (65 mg iron) TabletIndications:I thiago deficiency Take 1 tablet by mouth daily for 180 days. Take with vitamin C 500 mg to improve absorption 90 tablet 1 11/08/2015 05/06/2016 Cyanocobalamin 1,000 mcg Tablet, Sublingual Place 1 tablet under the tongue daily. 90 tablet 3 11/08/2015 07/05/2016 pravastatin (PRAVACHOL) 20 mg Tablet Take 20 mg by mouth daily. Reported on 04/27/2017 06/05/2017 levothyroxine (SYNTHROID) 25 mcg tablet TAKE 1 TABLET BY MOUTH DAILY 90 tablet 4 05/22/2014 02/06/2017 BD INSULIN SYRINGE ULT-FINE II 1 mL 31 x 5/16 Syrg USE WITH INSULIN TWO TIMES A DAY 100 Syringe 12 11/01/2013 02/18/2016 baclofen (LIORESAL) 10 mg tablet Take 10 mg by mouth 4 times daily. 03/08/2021 folic acid (FOLVITE) 1 mg tablet Take 1 mg by mouth daily. Reported on 04/06/2017 04/06/2017 metFORMIN (GLUCOPHAGE) 500 mg tablet Take 500 mg by mouth 2 times daily (with meals). 02/05/2019 POTASSIUM CHLORIDE (KLOR-CON 10 ORAL) Take 10 mEq by mouth 2 times daily. Reported on 04/06/2017 04/06/2017 Insulin Syringe-Needle U-100 (INSULIN SYRINGE) 1/2 mL 30 x 5/16 Syrg by [facility] [place].(Non-Drug; Combo Route) route 2 times daily. Using with insulin bid 1 Box 4 06/03/2011 04/06/2017 documented as of this encounter Progress Notes * Phylicia Sparks RN - 01/06/2016 11:30 AM EDT 1045 patient discharged home, no services. Prescriptions given to pt by BERE. AVS and Summary given and reviewed, questions answered, pt stated understanding. PIV removed earlier due to infiltration, site improved, no redness. Surgical sites WNL, overall assessment benign. Patient escorted by SHAGGY stewart via w/c to exit. Patient stated she had all personal belongings. * Judith Reinoso MD - 01/06/2016 9:48 AM EDT Follow Up Diabetes Consult Patient Interview: Martha Benoit is doing ok today, eating some post-bariatric diet without problem(some nausea when she missed her pain meds and then better with good pain control). FSBG over the last 24 h showed improvement, although still a bit variable ranging between 147-204 mg/dl (trending down to 100s all the time after adding glipizide and will increase from qd to bid today). No U- 500 since the night before she was here for gastric bypass and she is pleased to stop using scheduled insulin & ok with sliding scale p.r.n use with her 2 oral agents. Current Regimen: GlipizideER 10 mg qam started yesterday => increase to bid today Metformin 500 mg bid Novolog resistant sliding scale if BG>140 (140 3u, 160 6u, 200 9u, 240 12units, etc) Recent Lab: Recent Results (from the past 24 hour(s)) POCT Glucose Result Value Ref Range POC Glucose 204 (H) 65 - 199 mg/dL POCT Glucose Result Value Ref Range POC Glucose 168 65 - 199 mg/dL POCT Glucose Result Value Ref Range POC Glucose 147 65 - 199 mg/dL Basic Metabolic Panel (non-fasting) Result Value Ref Range Glucose Lvl 205 (H) 65 - 199 mg/dL BUN 7 (L) 8 - 18 mg/dL Creatinine 0.35 (L) 0.70 - 1.20 mg/dL Sodium 138 135 - 145 mmol/L Potassium 3.5 3.5 - 5.0 mmol/L Chloride 99 98 - 107 mmol/L CO2 25 22 - 31 mmol/L Anion Gap 14 5 - 15 mmol/L Calcium 8.2 (L) 8.5 - 10.5 mg/dL Estimated GFR >60 >=60 Hemogram Result Value Ref Range WBC 11.5 (H) 4.0 - 10.0 x10(3)/mcL RBC 4.20 3.93 - 5.22 x10(6)/mcL Hemoglobin 11.1 (L) 11.2 - 15.7 gm/dL Hematocrit 35.2 34.0 - 45.0 % MCV 83.8 79.0 - 94.0 fL MCH 26.4 (L) 26.6 - 32.2 pg MCHC 31.5 (L) 32.0 - 36.5 gm/dL Platelets 200 145 - 370 x10(3)/mcL RDWSD 43.4 35.0 - 46.0 fL RDWCV 14.3 10.9 - 14.4 % MPV 11.2 9.0 - 12.0 fL Differential, Automated Result Value Ref Range Neutrophils % 73.0 % Neutr Abs (ANC) 8.38 (H) 1.50 - 6.30 x10(3)/mcL Lymphocytes % 17.8 % Lymphocytes Abs 2.0 1.0 - 3.6 x10(3)/mcL Monocytes % 7.0 % Monocyte Abs 0.8 0.2 - 1.0 x10(3)/mcL Eosinophils % 1.7 % Eosinophils Abs 0.2 0.0 - 0.5 x10(3)/mcL Basophils % 0.2 % Basophils Abs 0.0 0.0 - 0.2 x10(3)/mcL Immature Gran % 0.30 % Zahra Gran Abs 0.03 0.00 - 0.05 x10(3)/mcL POCT Glucose Result Value Ref Range POC Glucose 194 65 - 199 mg/dL POCT Glucose Result Value Ref Range POC Glucose 182 65 - 199 mg/dL Recommendations: 1. To increase glipizideER 10 mg qd to bid 2. To cont metformin 500 mg bid (intolerant to the high dose) 3. Cont. current custom sliding scale for correction of high BG>150 QID p.r.n at home using Humalog kwickpen based on 1u:10BG ratio as previous home med 4. D/C U-500 insulin 60u bid from home med list 5. I'll see her at Endocrine clinic (5C) on 01/21/16 at 3pm as scheduled. Will see if she needs to resume Invokana 100 mg qd at the time (may not need it if 2 oral agents can keep her BG under control) Discussed with team & pt for plan above directly. 15 minutes of this 25 minute visit was spent with the patient in counseling on diabetes and treatment plan, reviewing all glucose and insulin data as well as relevant laboratory results with the patient, and coordination of care on the inpatient unit (e.g. discussed new treatment plan with RN and/or primary team, marketing administrator and/or diabetes nurse educator, etc). * Magaly Diego PA - 01/05/2016 11:27 AM EDT Minimally Invasive Surgery Inpatient Progress Note ID: Martha Benoit is a 50 y.o. female s/p Brady-en-Y gastric bypass with intraoperative upper endoscopy. Now 1 Day Post-Op. 24hr events: ?? No acute events ?? Mild nausea initially; now resolved Subjective: Admits to feeling ok this am. She denies any current n/v/cp/sob. She admits she did have nausea last evening, but that has since resolved. She states her pain is fairly well-controlled. She is not having any problems voiding, but has not yet walked outside of the room. O: Last value Range last 24hrs Temperature Temp: 37.1 ??C (98.8 ??F) Temp: [36.2 ??C (97.2 ??F)-37.5 ??C (99.5 ??F)] Heart Rate Heart Rate: 115 Heart Rate: [75-115] Blood Pressure BP: 107/54 mmHg BP: (107-161)/(54-135) Respiratory Rate Resp: 18 Resp: [14-30] SpO2 SpO2: 90 % SpO2: [90 %-100 %] 01/03 0701 - 01/04 0700 In: 3357 [I.V.:3357] Out: 1605 [Urine:1605] Physical Exam: General: NAD, resting comfortably, pleasant, conversant HEENT: PERRL, anicteric sclerae CVS: RRR Pulm: CTAB Abd: soft, appropriately tender, non-distended. 6 port sites without evidence of edema, erythema orecchymosis. No s/s of drainage or infection. : no problems with voiding Skin: warm, dry Ext: no c/c/e Neuro: non-focal, moving all four extremities spontaneously Labs: Recent Labs 01/05/16 0544 WBC 12.4* HGB 12.0 HCT 36.3 PLATELET 225 Recent Labs 01/05/16 0544 NA 138 K 3.7 CL 100 CO2 24 BUN 10 CREATININE 0.52* GLUCOSE 236* CALCIUM 7.9* Microbiology: None New Studies: None ASSESSMENT: Martha Benoit is a 50 y.o. female s/p Brady-en-Y gastric bypass with intraoperative upper endoscopy. Now 1 Day Post-Op PLAN: NEURO: Pain control with CLINIQUE COUNTER MANAGER Dilaudid; transition to Oxycodone and Tylenol (tablet as pt states sheis not able to tolerate the elixir). Continue home Neurontin and Lidoderm patches. CV: No active issues PULM: Encourage frequent ambulation and IS use. GI: Diet Gastric Bypass diet Stage II-Full : no problems with voiding; monitor UOP closely FEK: LR 100cc/hr until tolerating adequate po intake; monitor lytes and replace prn ID: no indication of active infection HEME: no indication of active bleeding ENDO: Continue home Glipizide and Metformin; Novolog sliding scale while inpatient PROPHYLAXIS: Lovenox for DVT; Protonix for gastric DISPO: Floor status, Full Code Plan for discharge tomorrow depending on progress. BERE PÉREZ 01/05/2016 * Elizabeth Weiss RN - 01/05/2016 10:33 AM EDT Record reviewed and patient discussed with clinical staff pharmacist. No Enoxaparin at time of discharge planned. Nodischarge needs identified at this time. Medicine Teacher remains available as needed for coordination of care and discharge planning. Elizabeth Weiss RN Pager# [phone] Medicine Teacher * Hollis Ruby DO - 01/04/2016 11:06 PM EDT Post-Operative Progress Note Patient: Martha Benoit s/p laparoscopic gastric bypass Surgery: 01/04/2016 [id number] Procedure(s) (LRB): @LAPAROSCOPIC GASTROPLASTY, (N/A) ENDOSCOPY, UPPER GI, DIAGNOSTIC, WITH OR WITHOUT SPECIMENS (N/A) Surgeon(s) and Role: * Yokasta Esquivel MD - Primary * Umberto Mcgill MD - Fellow: 4 Hr 53 Min 38 Sec * No complications entered in OR log * Short History: awakened from anesthesia, extubated and taken to the recovery room in a stable condition, having suffered no apparent untoward event. Patient location: [facility] Surgical Floor Post-op Consciousness awake, alert and oriented Post-op pain: Adequate analgesia Post-op nausea: no nausea or vomiting Post-op Cardiovascular Status: No chest pain, chest pressure/discomfort, dyspnea and irregular heart beat Post-op Respiratory Status: No shortness of breath and cough Post-op Wound Status No redness and swelling Pain: minimal in abdomen Subjective/Events: Patient denies chest pain, shortness of breath, dizziness, headache, nausea, vomiting. She has abdominal discomfort, but she was expecting some and it is tolerable with CLINIQUE COUNTER MANAGER. She does have significant peripheral neuropathy at baseline and has significant discomfort in her feet forwhich she usually treats with lidoderm patches. Objective: Vitals: Temp: [36.2 ??C (97.2 ??F)-36.9 ??C (98.4 ??F)] Heart Rate: [75-104] Resp: [14-30] BP: (119-161)/(62-135) SpO2: [97 %-100 %] Date 01/04/16 0700 - 01/05/16 0659 Shift 5483-4070 0624-9076 8749-2960 24 Hour Total I N T A K E P.O. 0 0 I.V. 2350 100 2450 Shift Total 2350 100 2450 O U T P U T Urine 1305 1305 Shift Total 1305 1305 Weight (kg) Exam: General: NAD, awake/alert, responds to questions HEENT: PERRLA, EOMI, normocephalic, atraumatic Cardiac: sinus rhythm, tachycardic (low 90's), S1/S2, No M/R/G Resp: Breathing comfortably, adequate oxygenation on RA Abd: soft, appropriately tender, no guarding or peritoneal signs, portal sites LUQ reinforced with gauze 2/2 oozing, 1 portal site RUQ also reinforced, otherwise portal sites dressed with band-aids and are clean/dry. : No jaime catheter, making adequate urine Ext: WWP. Moving all 4 spontaneously, no LE edema, 1+ DP pulses bilaterally Neuro: No focal deficits. CN II-XII grossly intact. A/P: 50 y.o. year old female POD#0 s/p above procedure. she is having the following post op complications: none - Vitals stable. Monitor HR, if sustained >120 inform MD immediately as patient may have post-operative bleed/complication - Analgesia adequate with CLINIQUE COUNTER MANAGER. Will add lidoderm patches bilateral LE for peripheral neuropathy - NPO HOLD MEDICATIONS, MIVF LR @ 100cc/hr - Monitor UOP, bolus as necessary - F/U CBC/BMP - Proph: SCD/Lovenox/SCD - continue all post-operative care - Dispo: Floor HOLLIS RUBY, DO 01/04/2016 11:06 PM documented in this encounter H&P Notes * Umberto Mcgill MD - 01/04/2016 11:32 AM EDT Patient Name: Martha Benoit Patient Age: 50 y.o. Birthdate: 1965 Admit date: 01/04/2016 Attending Physician: Yokasta Esquivel MD Martha Benoit is a 50 y.o. female with a BMI of approx 44 who presents today for LRYGB, intraoperative EGD and possible liver bx. She denies any interval change in her medical or surgical history since her recent visit in the office with Dr. Esquivel. Furthermore, she denies any recent illness. Problem List: Preoperative Class IV obesity BMI 43.7? Denies hypertension, prescribed lisinipril 2.5 mg , likely for renal protection? Type 2 diabetes diagnosed in 1993, chronic poor control, untreated until 2005 (per her report) A. Current treatment: exenatide, glipizide, U 500 insulin BID, Invokana, metformin B. Monitoring: A1c 8.5 on 11/03/15, self monitoring QID- 170- 210 fasting, low 69- 150 afternoon, very rare low glucose in middle of night- treats with piece of chocolate (would rather have chocolate than glucose tabs) C. Complications: retinopathy,?? peripheral autonomic neuropathy, sees trail construction worker for calluses, declines flu shot ? GERD and hiatal hernia:?? asymptomatic, no current treatment A. EGD done on 07/21/10: small hiatus hernia was present extending from 39 cm to 36 cm. LA Grade A (one or more mucosal breaks less?? than 5 mm, not extending between tops of 2 mucosal folds) esophagitis with no bleeding was found 36 cm from the incisors. The middle third of the esophagus was normal. The upper third of the esophagus was normal. Path: Gastric antrum, biopsy: Gastric antrum-type mucosa with reactive gastropathy and intestinal metaplasia. B. EGD done on 11/16/11: : Normal examined duodenum. 4 small non-bleeding antral erosions. small sliding hiatal hernia previously identified esophagitis has healed. Path: Stomach:?? Gastric antral andfundic gland mucosa with nonspecific reactive gastropathy. No H. pylori-like microorganism is seen C. EGD done on 11/04/15: Normal esophagus. Erosive gastropathy. Findings unchanged from previous ??endoscopies. I don't think these non specific erosions should preclude bariatric surgery.?? Normal examined duodenum. Path: Endoscopic biopsy - Gastric antral gland mucosa with nonspecific reactive gastropathy and??focal intestinal metaplasia. No H. pylori-like microorganism is seen. ? Hyperlipidemia treated with pravastatin? Lower extremity edema, treated with?? lasix on 40 mg ~1 a week? Musculoskeletal issues: A. Chronic foot pain-s/p heel spur surgeries? 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 Diabetic retinopathy? Peripheral neuropathy-severe generalized? Acquired hypothyroidism? Vitamin D deficiency with PTH elevation (with normal calcium on 11/03/15), takes vitamin D 50,000 when she remembers, usually takes once a week? Iron deficiency? Low B12 level? Memory impairment, S/P evaluation by neurology 2014 [...] abnormalities. Midline structures are unremarkable.? Impaired functional status? 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 History of kidney stones-bilateral. remote stopped after using pepper per her report, was told by a nurse A. History of multiple cystoscopies and stent placements, initially in 1987? Less than ideal compliance to medications and overall health care? Seborrheic keratosis? History of tubular adenomas 2013? History of chest pain A. Stress ECHO [...] for PA pressure estimation, without right atrial enlargement.? Past Surgical History?? Procedure?? Laterality?? Date? Tubal ligation?? Bilateral?? 1988? ESWL?? Left?? 1988? ESWL?? Left?? 01/15/1995? Cystoscopy and stent placement?? Left?? 04/03/2001, 08/26/2001, 10/31/2000? Lithotripsy ? 12/26/2000? LEEP? 08/15/2009? Colposcopy? 04/08/2014? Excision of heel spur?? Left?? 2005? PRK for hyperopic astigmatism?? OU?? 2004? Upper gi endoscopy, exam and biopsy? 11/16/2011? UPPER GI ENDOSCOPY performed by ALISA RICHARDS at [facility] END[facility]COPY?? Anesthesia history (per patient): denies untoward events Screening/other: Date?? Evaluation?? Results?? 2015?? Primary care ? 09/23/14?? Colonoscopy?? 4 polyps ascending and descending colon, rectum- all tubular adenomas?? 03/24/15?? Pap?? negative?? 08/07/14?? Mammogram?? ACR category 1- advised to update?? -?? DEXA? Recent diagnostic screening/ evaluations since initial visit: -? EGD on 11/04/15 -?? Rehab medicine 11/17/15 -?? Endocrinology follow up 11/17/15 -?? Mammogram 2016 ROS negative for CP, SOB, BARKER, nausea, vomiting, fevers chills or changes in bowel habits. There were no vitals filed for this visit. Gen: NAD No respiratory distress, RRR Abd soft, obese, NT, ND A/P: Martha Benoit is a 50 y.o. female with a BMI of 44 who presents today for LRYGB, poss liver biopsy and intraoperative EGD. The risks and benefits of the procedure were described to the patient in detail and all questions were answered. 1. Consent in chart 2. Proceed to OR documented in this encounter Miscellaneous Notes * Plan of Care - Destiny Zuniga RN - 01/06/2016 1:32 AM EDT Problem: General Plan of Care Goal: Plan of Care Review Outcome: Ongoing (Interventions Implemented as Appropriate) 01/05/16 1402 01/05/16 2130 Plan of Care Review Plan of Care Outcome Status ongoing (interventions implemented as appropriate) -- Progress improving -- Coping/Psychosocial Response Interventions Plan of Care Reviewed with -- patient OUTCOME EVALUATION NOTE: OUTCOME SUMMARY: 2051-T-38.2-encouraged to use IS. 2129-Patient c/o nausea,informed MD Ruby with order for Zofran, given Zofran 4 mg IV with slight relief. 2304-Ambulated around the POD, C/O 7/10 pain on her abdomen, given Oxycodone with relief. 2326-Still complaining of nausea, notified MD Ruby with order for Compazine 10 mg IV with relief.Able to sleep after Compazine. PLAN MOVING FORWARD: Will continue with anti-emetic, pain med so she can ambulate and move around and be able to tolerate po intake. INDIVIDUALIZED FALL PREVENTION: Assistance: Standby assist with walker. Supervision: Uses call light appropriately. Surveillance: Purposeful rounding, call light at the bedside CPG OUTCOME EVALUATION: Goal: Individualization and Mutuality Outcome: Ongoing (Interventions Implemented as Appropriate) 01/05/16 0551 Mutuality/Individual Preferences What anxieties, fears or concerns do you have about your health or care? none What questions do you have about your health or care? none What information would help us give you more personalized care? none Goal: Fall Prevention-Safe Patient Handling Outcome: Ongoing (Interventions Implemented as Appropriate) 01/05/16212901/05/16 2356 Musculoskeletal Interventions Activity/Level of Assistance -- up in ge;ambulated;with walker;with stand by assist Positioning HOB up 30-45 degrees -- Muscle Strengthening activity/mobility promoted;mobility in bed promoted;personal routines for BADL/IADL promoted;sitting on edge of bed encouraged;up in chair encouraged for meals and activities -- Self-Care Promotion assistance provided to decrease frustration;independence encouraged while providing assistance -- Activity and Safety Assistive Device -- Four wheel walker Safety Interventions Safety Precautions/Fall Reduction assistive device;environmental modification;fall reduction program maintained;lighting adjusted for task/safety;low bed;mobility aid;muscle strengthening facilitated;nonskid shoes/slippers when out of bed -- Goal: Infection Control Outcome: Ongoing (Interventions Implemented as Appropriate) 01/05/162129 Coping/Psychosocial Response Interventions Counseling emotional support provided Safety Interventions Isolation Precautions standard precautions maintained Infection Prevention blood glucose management;bronchial hygiene promoted;environmental surveillance;hydration promoted;nutrition promoted;promote handwashing;rest/sleep promoted Goal: Discharge Needs Assessment Outcome: Ongoing (Interventions Implemented as Appropriate) 01/05/16 0552 01/05/16 0600 Self-Care Equipment Currently Used at Home walker, rolling -- Living Environment Transportation Available -- car;family or friend will provide Problem: Pain, Acute (Adult, Obstetrics) Goal: Identify Signs and Symptoms and Related Risk Factors Signs and symptoms and related risk factors are identified upon initiation of Human Response Clinical Practice Guideline (CPG) Outcome: Ongoing (Interventions Implemented as Appropriate) 01/05/16 0147 Pain, Acute Related Risk Factors (Acute Pain) anxiety;surgery Signs and Symptoms (Acute Pain) guarding/abnormal posturing/positioning;nausea/vomiting/anorexia;verbalization of pain descriptors Goal: Acceptable Pain Control/Comfort Level Patient will demonstrate the desired outcomes. Outcome: Ongoing (Interventions Implemented as Appropriate) 01/05/16 0147 Pain, Acute (Adult, Obstetrics) Acceptable Pain Control/Comfort Level making progress toward outcome Problem: Skin Integrity Impairment, Risk/Actual (Adult, Obstetrics) Goal: Identify Signs and Symptoms and Related Risk Factors Signs and symptoms and related risk factors are identified upon initiation of Human Response Clinical Practice Guideline (CPG) Outcome: Ongoing (Interventions Implemented as Appropriate) Goal: Skin Integrity/Wound Healing Patient will demonstrate the desired outcomes. Outcome: Ongoing (Interventions Implemented as Appropriate) * Plan of Care - Yasmine Stuart RN - 01/05/2016 2:04 PM EDT Problem: General Plan of Care Goal: Plan of Care Review Outcome: Ongoing (Interventions Implemented as Appropriate) 01/05/16 1402 Plan of Care Review Plan of Care Outcome Status ongoing (interventions implemented as appropriate) Progress improving Coping/Psychosocial Response Interventions Plan of Care Reviewed with patient OUTCOME EVALUATION NOTE: OUTCOME SUMMARY: Martha had an ok day. Was sleeping this morning, but had perked up since. CLINIQUE COUNTER MANAGER discontinued. Pain controlled with prn oxycodone. States that oxycodone need is more for her neuropathy then her abdomen. Diet advanced to stage 1 clears, then stage 2 full, tolerating fine without nausea/emesis. Uses homerolling walker to ambulate. Seen by endocrinology this morning, BG in the 200s throughout the day. PLAN MOVING FORWARD: Home tomorrow INDIVIDUALIZED FALL PREVENTION: Assistance: 1x with rolling walker Supervision: Hands on assist with ADLs Surveillance: Purposeful rounding, Samo, call dukes within reach CPG OUTCOME EVALUATION: Goal: Individualization and Mutuality Outcome: Ongoing (Interventions Implemented as Appropriate) 01/05/16 0551 Mutuality/Individual Preferences What anxieties, fears or concerns do you have about your health or care? none What questions do you have about your health or care? none What information would help us give you more personalized care? none Goal: Fall Prevention-Safe Patient Handling Outcome: Ongoing (Interventions Implemented as Appropriate) 01/05/16 0800 01/05/16 1100 01/05/16 1112 Musculoskeletal Interventions Activity/Level of Assistance -- -- up ad eladio;up in ge;up in room;ambulated;chair;with walker;with1-person assist Positioning -- -- supine (sitting at edge of bed) Muscle Strengthening -- -- -- Self-Care Promotion -- -- -- [place] Fall Risk History of Falling 0 -- -- Secondary Diagnosis 15 -- -- Ambulatory Aids 15 -- -- Intravenous Therapy/Heparin/Saline Lock 20 -- -- Gait/Transferring 10 -- -- Mental Status 0 -- -- Score 60 -- -- Activity and Safety Assistive Device -- -- Four wheel walker OTHER [place] Fall Risk High -- -- Safety Interventions Safety Precautions/Fall Reduction -- family at bedside -- 01/05/16 1402 Musculoskeletal Interventions Activity/Level of Assistance -- Positioning -- Muscle Strengthening activity/mobility promoted;mobility in bed promoted;personal routines for BADL/IADL promoted Self-Care Promotion assistance provided to decrease frustration;independence encouraged while providing assistance;personal routines for BADL/IADL promoted;personal/BADL objects within reach [place] Fall Risk History of Falling -- Secondary Diagnosis -- Ambulatory Aids -- Intravenous Therapy/Heparin/Saline Lock -- Gait/Transferring -- Mental Status -- Score -- Activity and Safety Assistive Device -- OTHER [place] Fall Risk -- Safety Interventions Safety Precautions/Fall Reduction -- Goal: Infection Control Outcome: Ongoing (Interventions Implemented as Appropriate) 01/05/16 0800 Coping/Psychosocial Response Interventions Counseling emotional support provided;goal setting facilitated;reassurance provided Safety Interventions Isolation Precautions standard precautions maintained Infection Prevention blood glucose management;bronchial hygiene promoted;environmental surveillance;hydration promoted;nutrition promoted;promote handwashing;rest/sleep promoted Goal: Discharge Needs Assessment Outcome: Ongoing (Interventions Implemented as Appropriate) 01/05/16 0552 01/05/16 0600 Self-Care Equipment Currently Used at Home walker, rolling -- Living Environment Transportation Available -- car;family or friend will provide * Consult Note - Judith Reinoso MD - 01/05/2016 9:13 AM EDT ENDOCRINOLOGY CONSULTATION NOTE Date of Consultation: 01/05/16 Place of Consultation: 4W Consult Requested by: Dr. Esquivel Reason for Consultation: Martha Benoit is a 50 y.o. years old female who was admitted on 01/04/16 yesterday for gastric bypass. 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 Diabetes History: Martha Benoit has had diabetes over 20 yrs ago, well known to me at Endocrine clinic and is taking high dose U-500 insulin plus 2-3 oral agents but still having progressive wt gain requiring gastric bypass as planned. Current outpatient diabetes regimen: Medications: U-500 60u bid, Glipizide 10 mg qd, metformin 500 mg bid (unable to tolerate a higher dose). She has not use Invokana 100 mg qd as she is afraid of the side effect of UTI/yeast infection Monitoring is done 2-4 times a day and typically shows 100s-200s Most recent HA1c was done on 11/03/15 and was 8.5 %, suggesting an average glucose of 200 mg/dL for the past 6-8 weeks. Typical diet is: 3 meals and 1-2 snacks a day Typical exercise regimen is walking Trouble with hypoglycemia ([x ]) no ([ ]) yes Diabetes Complications Status: Eyes: +background retinopathy Kidneys: +micoralbuminuria Feet: None Sensory: +peripheral neuropathy, foot drop Autonomic: None Cardiac: None Current Hospital Diabetes Care: Medications: Novolog resistant sliding scale tid ac & hs and metformin 500 mg bid Monitoring: tid ac & hs Diet: post- bariatric PMH (from chart) No past medical history on file. Current Hospital Medications: Prednisone - ([x]) no ([]) yes others: as in CIS No current facility-administered medications on file prior to encounter. Current Outpatient Prescriptions on File Prior to Encounter Medication Sig Dispense Refill ??? oxyCODONE-acetaminophen (PERCOCET) 10-325 mg Tablet Take 1 tablet by mouth every 4 hours as needed for Pain. ??? omeprazole (PRILOSEC) 20 mg Capsule, Delayed Release(E.C.) Take 1 capsule by mouth daily for 270 days. 90 capsule 2 ??? ergocalciferol (VITAMIN D) 50,000 unit Capsule Take 1 capsule by mouth twice a week for 48 doses. 24 capsule 1 ??? Cyanocobalamin 1,000 mcg Tablet, Sublingual Place 1 tablet under the tongue daily. 90 tablet 3 ??? gabapentin (NEURONTIN) 300 mg Capsule Take 600 mg by mouth daily. ??? pravastatin (PRAVACHOL) 20 mg Tablet Take 20 mg by mouth daily. ??? levothyroxine (SYNTHROID) 25 mcg tablet TAKE 1 TABLET BY MOUTH DAILY 90 tablet 4 ??? insulin regular CONCENTRATE U-500 (HUMULIN R U-500 CONCENTRATED) 500 unit/mL Soln Inject subcutaneously 0.1 mL twice daily. 20 vial 4 ??? baclofen (LIORESAL) 10 mg tablet Take 10 mg by mouth 4 times daily. ??? folic acid (FOLVITE) 1 mg tablet Take 1 mg by mouth daily. ??? furosemide (LASIX) 40 mg tablet Take 40 mg by mouth as needed. ??? glipiZIDE (GLUCOTROL) 10 mg tablet Take 10 mg by mouth 2 times daily (before meals). ??? metFORMIN (GLUCOPHAGE) 500 mg tablet Take 500 mg by mouth 2 times daily (with meals). ??? POTASSIUM CHLORIDE (KLOR-CON 10 ORAL) Take 10 mEq by mouth 2 times daily. ??? ferrous sulfate 325 mg (65 mg iron) Tablet Take 1 tablet by mouth daily for 180 days. Take withvitamin C 500 mg to improve absorption 90 tablet 1 ??? BD INSULIN SYRINGE ULT-FINE II 1 mL 31 x 5/16 Syrg USE WITH INSULIN TWO TIMES A DAY 100 Syringe 12 ??? lidocaine (LIDODERM) 5 %(700 mg/patch) Place 1 patch onto the skin every 12 hours as needed. ??? Insulin Syringe-Needle U-100 (INSULIN SYRINGE) 1/2 mL 30 x 5/16 Syrg by [facility].(Non-Drug; Combo Route) route 2 times daily. Using with insulin bid 1 Box 4 Allergy: Allergies Allergen Reactions ??? Codeine Phosphate Nausea And Vomiting ??? Meperidine Social history History Substance Use Topics ??? Smoking status: Never Smoker ??? Smokeless tobacco: Never Used ??? Alcohol Use: No Family history Family History Problem Relation Age of Onset ??? Diabetes ??? High Cholesterol ??? Hypertension ??? Stroke ??? Obesity ??? Psoriasis ??? * congenital malformation in her son/kidney stone ??? Diabetes Mother ??? Diabetes Father ROS: Constitutional: No recent weight change Endocrine: No thyroid problems Eyes: No recent vision change ENT: +dysphagia, pain in the throat post extubation Cardiovascular: No chest pain Respiratory: No wheezing , shortness of breath GI: No nausea, vomiting, diarrhea, constipation, + low appetite : No frequent urinary tract infections Neurological: No weakness or numbness Integument: No ulcerations Physical Exam: BP 107/54 mmHg Pulse 115 Temp(Src) 37.1 ??C (98.8 ??F) (Oral) Resp 18 SpO2 90% Appearance: obese, NAD, lying comfortably in bed, no hoarseness of voice but c/o throat discomfort d/t intubation yesterday HEENT- PERRLA, EOMI Neck- supple, no goiter, no lymphadenopathy Lungs - clear to auscultation Heart - RRR, no murmur Abdomen- ND, NT, no hepatosplenomegaly, normal bowel sounds Extremities - No edema Feet - normal skin exam, normal nail, normal pulses Neuro- sensations intact, no weakness, reflexes were slightly depressed all. Labs: Recent Results (from the past 24 hour(s)) POCT Glucose Result Value Ref Range POC Glucose 218 (H) 65 - 199 mg/dL POCT Glucose Result Value Ref Range POC Glucose 258 (H) 65 - 199 mg/dL POCT Glucose Result Value Ref Range POC Glucose 214 (H) 65 - 199 mg/dL Basic Metabolic Panel (non-fasting) Result Value Ref Range Glucose Lvl 236 (H) 65 - 199 mg/dL BUN 10 8 - 18 mg/dL Creatinine 0.52 (L) 0.70 - 1.20 mg/dL Sodium 138 135 - 145 mmol/L Potassium 3.7 3.5 - 5.0 mmol/L Chloride 100 98 - 107 mmol/L CO2 24 22 - 31 mmol/L Anion Gap 14 5 - 15 mmol/L Calcium 7.9 (L) 8.5 - 10.5 mg/dL Estimated GFR >60 >=60 Hemogram Result Value Ref Range WBC 12.4 (H) 4.0 - 10.0 x10(3)/mcL RBC 4.44 3.93 - 5.22 x10(6)/mcL Hemoglobin 12.0 11.2 - 15.7 gm/dL Hematocrit 36.3 34.0 - 45.0 % MCV 81.8 79.0 - 94.0 fL MCH 27.0 26.6 - 32.2 pg MCHC 33.1 32.0 - 36.5 gm/dL Platelets 225 145 - 370 x10(3)/mcL RDWSD 42.9 35.0 - 46.0 fL RDWCV 14.3 10.9 - 14.4 % MPV 11.3 9.0 - 12.0 fL Differential, Automated Result Value Ref Range Neutrophils % 78.3 % Neutr Abs (ANC) 9.70 (H) 1.50 - 6.30 x10(3)/mcL Lymphocytes % 14.0 % Lymphocytes Abs 1.7 1.0 - 3.6 x10(3)/mcL Monocytes % 7.3 % Monocyte Abs 0.9 0.2 - 1.0 x10(3)/mcL Eosinophils % 0.1 % Eosinophils Abs 0.0 0.0 - 0.5 x10(3)/mcL Basophils % 0.1 % Basophils Abs 0.0 0.0 - 0.2 x10(3)/mcL Immature Gran % 0.20 % Zahra Gran Abs 0.03 0.00 - 0.05 x10(3)/mcL POCT Glucose Result Value Ref Range POC Glucose 231 (H) 65 - 199 mg/dL Assessment: Martha Benoit has longstanding type 2 diabetes with suboptimal control (A1c 8.5) and still having normal c-peptide, so we will resume glipizide, metformin in addition to sliding scale (nomore U-500) while in the hospital. Plan: In hospital : Medication - 1. To resume glipizideER 10 mg qam today and if BG remains high, may switch to bid later this pm 2. Novolog resistant sliding scale for BG>140 tid ac & hs 3. To cont metformin 500 mg bid (no need for Invokana 100 mg qd yet as it's not in formulary andwill consider this later as out-pt FU) 4. To cont vitamin D 50,000 iu weekly as at home Lab -add-on lab for new baseline HbA1c today. 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 Monitoring - tid ac & hs Diet - low fat/low carb diet Exercise - weight-bearing exercise 30 min/day, as tolerated Thank you for allowing me to participate in the care of this very pleasant and interesting patient. Contact: Judith Reinoso MD, PhD, FACE (pager # [phone]) [facility] End[place] , x Consult service will continue to follow patient. Recommendations are above, please page if further consultation required. Thank you. * Plan of Care - Destiny Zuniga RN - 01/05/2016 2:04 AM EDT Problem: General Plan of Care Goal: Plan of Care Review 01/04/161943 Coping/Psychosocial Response Interventions Plan of Care Reviewed with patient;daughter;son OUTCOME EVALUATION NOTE: OUTCOME SUMMARY: 1924-Transferred from PACU post Lap Gastroplasty alert and oriented per stretcher, assisted to the bathroom with walker had adequate amount of urine.Lap sites with small bleeding,changed bandaid withgauze dressing which help. 1943-Dry heaving while in the bathroom, given Zofran 4 mg IV with slight relief. 2111- Still nauseas given Compazine 5 mg IV with relief. With 5/10 pain on her abdominal lap sites encouraged to use the CLINIQUE COUNTER MANAGER.. PLAN MOVING FORWARD: Patient will be up in recliner chair and be able to ambulate in am. INDIVIDUALIZED FALL PREVENTION: Assistance: 1 assists with walker Supervision: Uses call light appropriately Surveillance: Purposeful rounding, call light at the bedside. CPG OUTCOME EVALUATION: Goal: Individualization and Mutuality Outcome: Ongoing (Interventions Implemented as Appropriate) Goal: Fall Prevention-Safe Patient Handling Outcome: Ongoing (Interventions Implemented as Appropriate) 01/04/161943 Activity and Safety Assistive Device Four wheel walker Safety Interventions Safety Precautions/Fall Reduction assistive device;environmental modification;fall reduction program maintained;family at bedside;lighting adjusted for task/safety;low bed;mobility aid;muscle strengthening facilitated;nonskid shoes/slippers when out of bed Musculoskeletal Interventions Activity/Level of Assistance up in room;up ad eladio;ambulated;with walker;with 1- person assist Positioning HOB up 30-45 degrees Goal: Infection Control Outcome: Ongoing (Interventions Implemented as Appropriate) 01/04/161943 Safety Interventions Isolation Precautions standard precautions maintained Infection Prevention blood glucose management;bronchial hygiene promoted;environmental surveillance;hydration promoted;promote handwashing;rest/sleep promoted Coping/Psychosocial Response Interventions Counseling calming techniques promoted;emotional support provided;goal setting facilitated Goal: Discharge Needs Assessment Outcome: Ongoing (Interventions Implemented as Appropriate) Problem: Pain, Acute (Adult, Obstetrics) Goal: Identify Signs and Symptoms and Related Risk Factors Signs and symptoms and related risk factors are identified upon initiation of Human Response Clinical Practice Guideline (CPG) Outcome: Ongoing (Interventions Implemented as Appropriate) 01/05/16 0147 Pain, Acute Related Risk Factors (Acute Pain) anxiety;surgery Signs and Symptoms (Acute Pain) guarding/abnormal posturing/positioning;nausea/vomiting/anorexia;verbalization of pain descriptors Goal: Acceptable Pain Control/Comfort Level Patient will demonstrate the desired outcomes. Outcome: Ongoing (Interventions Implemented as Appropriate) 01/05/16 014 Pain, Acute (Adult, Obstetrics) Acceptable Pain Control/Comfort Level making progress toward outcome * Op Note - Yokasta Esquivel MD - 01/04/2016 5:00 PM EDT [facility] Operative Note Patient Name: Martha Benoit : [id number] MR#: [id number] Case Date: 01/04/2016 Surgeon: Surgeon(s) and Role: * Yokasta Esquivel MD - Primary * Umberto Mcgill MD - Fellow Preoperative diagnosis: OBESITY Postoperative diagnosis: OBESITY Procedure(s): @LAPAROSCOPIC GASTROPLASTY, ENDOSCOPY, UPPER GI, DIAGNOSTIC, WITH OR WITHOUT SPECIMENS Preoperative Diagnosis(es): Morbid obesity. Postoperative Diagnosis(es): Morbid obesity. Procedure Performed: Laparoscopic Brady-en-Y gastric bypass and intraoperative endoscopy. Anesthesia: General endotracheal. Complications: None. Indications For Procedure: The patient is a 50-year-old female with a long- standing history of obesity which has been refractory to structured weight loss programs. She meets the NIH criteria for bariatric surgery and has had full participation in the [facility] Bariatric Surgery program. Following review of her therapeutic options, she has elected to undergo a laparoscopic Brady-en-Y gastric bypass. Findings: The patient underwent a laparoscopic Brady-en-Y gastric bypass and intraoperative endoscopy. She had a 100 cm Brady limb to a 30 cc proximal gastric pouch. Intraoperative endoscopy did not reveal any evidence for leak at the gastrojejunostomy. Description of Procedure: The patient was brought to the Operating Room and placed in the supine position. Following uneventful induction of general endotracheal anesthesia, the patient had an orogastric tube, Venodyne stockings, and a Jaime catheter placed. Her abdomen was prepped and draped in the usual sterile fashion. The first trocar was a 10 mm trocar placed 15 cm inferior to the xiphoid just to the left of midline. Through this, a 10 mm Optiviewtrocar with a 0 degree laparoscope were inserted into the peritoneal cavity and a pneumoperitoneum to 15 mmHg pressure was obtained without difficulty. The 0 degree scope was replaced with a 45 degree laparoscope and the area underneath the insertion of the Optiview was inspected and no evidence of abdominal trauma was visualized. All remaining trocars were inserted under direct visualization. The next trocar was a 5 mm trocar placed in the left upper abdomen. The next trocar was a 5 mm trocar placed in the left mid abdomen. The next trocar was a 5 mm trocar placed in the subxiphoid location.Through this, an expandable fan retractor was positioned below the left lobe of the liver, which was then retracted cephalad and held in place using a mechanical arm. The next trocar was a 5 mm trocar placed in the right epigastrium. The next trocar was a 12 mm trocar placed in the right mid abdomen. The epiphrenic fat pad was grasped and retracted inferiorly to the patient's right and multiple cardiophrenic attachments were taken down in the region of the angle of His up to the first short gastric vessel. We then measured 5 cm from the gastroesophageal junction along the lesser curvature of the stomach and a plane was developed between the lesser curvature fat and the gastric wall. We developed the posterior gastric space and the stomach was begun to be divided at this level. The first firing was a 45 Endo-ZORAN stapler in horizontal orientation. Remaining firings of stapler were in a vertical orientation up to the angle of His to create a 30 cc proximal gastric pouch. We then inspected the staple line. Excellent hemostasis was assured. The patient was placed in Trendelenburg. Transverse colon and omentum were placed in the upper abdomen. The ligament of Treitz was identified and the jejunum was divided, 50 cm from the ligament of Treitz, using Endo-ZORAN 45 stapler and we then gained additional mesenteric length using electrocautery and harmonic scalpel dissection. A 100 cm Rouxlimb was chosen given the patient's BMI under 50 and we then approximated the two limbs of the jejunum using two interrupted sutures of 2-0 Nurolon. Enterotomies were made in both limbs of the jejunum and the anastomosis of the jejunojejunostomy performed using a single firing of the Endo-ZORAN 45. The enterotomy was closed using a running layer of 2-0 Nurolon in two layers. We then identified the mid transverse colon. The omentum was elevated cephalad off the transverse colon and the omentum wassplit up to the greater curvature of the stomach using the harmonic scalpel. The Brady limb was thenbrought up through the omental split and was noted to reach without tension to the proximal gastricpouch and the patient was placed in reverse Trendelenburg. Two stay sutures were placed between the gastric pouch and the Brady limb. These were interrupted sutures of 2-0 Nurolon. Enterotomies were then performed in the gastric pouch and the Brady limb with the anastomosis performed using a partial firing of the Endo-ZORAN 45. At this point, a 30 Tongan blunt tip bougie was passed by Anesthesia downthe esophagus, through the gastric pouch and into the efferent limb of the Brady limb. With the bougie in place, we then closed the enterotomy using a running suture of 2-0 Nurolon in two layers. The bougie was then removed. A bowel clamp was placed on the jejunum 10 cm from the gastrojejunostomy. Dr. Esquivel performed intraoperative endoscopy with distension of the gastric pouch and the upper abdo men flooded with sterile saline. There was no evidence of extravasation from the anastomosis. At this point, the bowel was decompressed using the gastroscope. The bowel clamp was removed. The abdomenwas irrigated. Excellent hemostasis was assured. The liver retractor was released and removed. All trocars were removed under direct visualization. We then removed the trocars under direct visualizati on and the pneumoperitoneum was evacuated. The trocars were closed at the skin level using a running subcuticular closure of 4-0 Vicryl followed by Steri- Strips followed by Band-Aids. Overall, the patient tolerated the procedure well and was taken to the Recovery Room postoperatively in stable condition. Attestation: Case Date: 01/04/2016 I performed this without a resident YOKASTA ESQUIVEL MD 01/04/2016 documented in this encounter Plan of Treatment Upcoming Encounters Date Type Department Care Team (Late st Contact Info) Description 02/19/2025 9:00 AM EDT TH Visit (TeleHealth) [place] [address] [facility] [place] [address] documented as of this encounter Procedures Procedure Name Priority Date/Time Associated Diagnosis Comments MIDDLEWARE ADMINISTRATOR SCAN 01/07/2016 12:00 AM EDT POCT GLUCOSE Routine 01/06/2016 8:27 AM EDT POCT GLUCOSE Routine 01/06/2016 7:05 AM EDT HEMOGRAM Routine 01/06/2016 6:50 AM EDT DIFFERENTIAL, AUTOMATED Routine 01/06/2016 6:50 AM EDT CBC (WITH DIFF) Routine 01/06/2016 6:50 AM EDT BASIC METABOLIC PANEL (NON-FASTING) Routine 01/06/2016 6:50 AM EDT POCT GLUCOSE Routine 01/05/2016 8:52 PM EDT POCT GLUCOSE Routine 01/05/2016 4:42 PM EDT POCT GLUCOSE Routine 01/05/2016 11:40 AM EDT POCT GLUCOSE Routine 01/05/2016 7:02 AM EDT HEMOGRAM Routine 01/05/2016 5:44 AM EDT DIFFERENTIAL, AUTOMATED Routine 01/05/2016 5:44 AM EDT CBC (WITH DIFF) Routine 01/05/2016 5:44 AM EDT HEMOGLOBIN A1C Routine 01/05/2016 5:44 AM EDT BASIC METABOLIC PANEL (NON-FASTING) Routine 01/05/2016 5:44 AM EDT POCT GLUCOSE Routine 01/04/2016 11:06 PM EDT POCT GLUCOSE Routine 01/04/2016 8:48 PM EDT POCT GLUCOSE Routine 01/04/2016 5:22 PM EDT ENDOSCOPY, UPPER GI, DIAGNOSTIC, WITH OR WITHOUT SPECIMENS (WRVU 2.09) 01/04/2016 12:24 PM EDT OBESITY @LAPAROSCOPIC GASTROPLASTY W/ BRADY-EN-Y CONSTRUCTION (WRVU 29.4) 01/04/2016 12:24 PM EDT OBESITY documented in this encounter Results * SCAN DOC: MIDDLEWARE ADMINISTRATOR (01/07/2016 12:00 AM EDT) Anatomical Region Laterality Modality Other Scanning Provider MEDIA MGR SCAN EXT O RDR/RSLT * POCT Glucose (01/06/2016 8:27 AM EDT) Pathologist [facility] [place] POC Glucose 182 65 - 199 mg/dL [facility] Comment: Supplemental ranges: <140 mg/dL before meals <180 mg/dL all other times of the day Blood specimen (specimen) 01/06/2016 8:27 AM EDT 01/06/2016 8:27 AM EDT Yokasta Esquivel MD POINT OF CARE TEST ORDERABLES [facility] [place] [address] * POCT Glucose (01/06/2016 7:05 AM EDT) [facility] POC Glucose 194 65 - 199 mg/dL [facility] Comment: Supplemental ranges: <140 mg/dL before meals <180 mg/dL all other times of the day Blood specimen (specimen) 01/06/2016 7:05 AM EDT 01/06/2016 7:05 AM EDT Yokasta Esquivel MD POINT OF CARE TEST ORDERABLES Performing Organization Address City/[facility] [address]/ZIP Co de Phone Number [facility] [place] [address] * (ABNORMAL) Differential, Automated (01/06/2016 6:50 AM EDT) Pathologist [facility] [place] Neutrophils % 73.0 % [facility] Neutr Abs (ANC) 8.38(H) 1.50 - 6.30 x10(3)/mc L [facility] Lymphocytes % 17.8 % [facility] Lymphocytes Abs 2.0 1.0 - 3.6 x10(3)/mc L [facility] Monocytes % 7.0 % [facility] Monocyte Abs 0.8 0.2 - 1.0 x10(3)/mc L [facility] Eosinophils % 1.7 % [facility] Eosinophils Abs 0.2 0.0 - 0.5 x10(3)/[facility] Basophils % 0.2 % [facility] Basophils Abs 0.0 0.0 - 0.2 x10(3)/[facility] LABORATORY Immature Gran % 0.30 % [facility] Comment: Immature granulocytes(IG's)percentage and absolute count will include metamyelocytes, myelocytes, and promyelocytes. Blood smears from CBCs yielding IG's will be scanned manually for concordance. If this scan disagrees with the automated IG or if promyelocytes are noted, a manual differential will be performed. Zahra Gran Abs 0.03 0.00 - 0.05 x10(3)/[facility] Blood specimen (specimen) 01/06/2016 6:50 AM EDT 01/06/2016 7:08 AM EDT Narrative Resulting Agency Comment Spec In Lab Yokasta Esquivel MD HEMATOLOGY ORDERABL ES Performing Organization Address City/State/[facility] Co de Phone Number [facility] [place] [address] * (ABNORMAL) Hemogram (01/06/2016 6:50 AM EDT) WBC 11.5(H) 4.0 - 10.0 x10(3)/[facility] LABORATORY RBC 4.20 3.93 - 5.22 x10(6)/[facility]ORY Hemoglobin 11.1(L) 11.2 - 15.7 gm/dL [facility] Hematocrit 35.2 34.0 - 45.0 % [facility] MCV 83.8 79.0 - 94.0 fL [facility] MCH 26.4(L) 26.6 - 32.2 pg [facility] MCHC 31.5(L) 32.0 - 36.5 gm/dL [facility] Platelets 200 145 - 370 x10(3)/[facility] LABORATORY RDWSD 43.4 35.0 - 46.0 fL [facility] RDWCV 14.3 10.9 - 14.4 % [facility] MPV 11.2 9.0 - 12.0 fL [facility] Blood specimen (specimen) 01/06/2016 6:50 AM EDT 01/06/2016 7:08 AM EDT Narrative Resulting Agency Comment Spec In Lab Yokasta Esquivel MD HEMATOLOGY ORDERABL ES [facility] [place] [address] * (ABNORMAL) Basic Metabolic Panel (non-fasting) (01/06/2016 6:50 AM EDT) Glucose Lvl 205(H) 65 - 199 mg/dL [facility] Comment:Diabetes: >=200 mg/d L plus symptoms BUN 7(L) 8 - 18 mg/dL [facility] Creatinine 0.35(L) 0.70 - 1.20 mg/dL [facility] Comment: Please note that the pediatric reference intervals supplied above were not validated at [facility]. Results from pediatric patients should be interpreted in conjunction to the patient's age, height and muscle mass. Sodium 138 135 - 145 mmol/L [facility] Potassium 3.5 3.5 - 5.0 mmol/L [facility] Comment: Please note: ??Patients with WBC >100,000 may have falsely elevated Potassium levels. ??For accurate Potassium quantification in these patients send serum separator tube (gold top) for subsequent determinations. ??Contact the Clinical Chemistry Laboratory if there are any questions. Chloride 99 98 - 107 mmol/L [facility] CO2 25 22 - 31 mmol/L [facility] Anion Gap 14 5 - 15 mmol/L [facility] Calcium 8.2(L) 8.5 - 10.5 mg/dL [facility] Estimated GFR >60 >=60 [facility] Comment: This estimated GFR (eGFR) [...] the following links into your internet browser. [email or web address] Blood specimen (specimen) 01/06/2016 6:50 AM EDT 01/06/2016 7:08 AM EDT Narrative Resulting Agency Comment Spec In Lab Yokasta Esquivel MD CHEMISTRY ORDERABLE S Performing Organization Address [facility] Co de Phone Number [facility] [place] [address] * POCT Glucose (01/05/2016 8:52 PM EDT) POC Glucose 147 65 - 199 mg/dL [facility] Comment: Supplemental ranges: <140 mg/dL before meals <180 mg/dL all other times of the day Blood specimen (specimen) 01/05/2016 8:52 PM EDT 01/05/2016 8:52 PM EDT Yokasta Esquivel MD POINT OF CARE TEST ORDERABLES Performing Organization Address [facility] [address] [facility] de Phone Number [facility] [place] [address] * POCT Glucose (01/05/2016 4:42 PM EDT) POC Glucose 168 65 - 199 mg/dL [facility] Comment: Supplemental ranges: <140 mg/dL before meals <180 mg/dL all other times of the day Blood specimen (specimen) 01/05/2016 4:42 PM EDT 01/05/2016 4:42 PM EDT Yokasta Esquivel MD POINT OF CARE TEST ORDERABLES Performing Organization Address [facility] [address] [facility]/ZIP Co de Phone Number [facility] [place] [address] * (ABNORMAL) POCT Glucose (01/05/2016 11:40 AM EDT) POC Glucose 204(H) 65 - 199 mg/dL [facility] Comment: Supplemental ranges: <140 mg/dL before meals <180 mg/dL all other times of the day Blood specimen (specimen) 01/05/2016 11:40 AM EDT 01/05/2016 11:40 AM EDT Yokasta Esquivel MD POINT OF CARE TEST ORDERABLES Performing Organization Address [facility] [address] [facility] Co de Phone Number [facility] [place] [address] * (ABNORMAL) POCT Glucose (01/05/2016 7:02 AM EDT) POC Glucose 231(H) 65 - 199 mg/dL [facility] Comment: Supplemental ranges: <140 mg/dL before meals <180 mg/dL all other times of the day Blood specimen (specimen) 01/05/2016 7:02 AM EDT 01/05/2016 7:02 AM EDT Yokasta Esquivel MD POINT OF CARE TEST ORDERABLES Performing Organization Address [facility] [address] [facility] Co de Phone Number [facility] [place] [address] * (ABNORMAL) Hemoglobin A1c (01/05/2016 5:44 AM EDT) Hemoglobin A1C 8.4(H) 4.3 - 5.6 % [facility] [...] 36: Suppl. 1, [id number] Est Avg Gluc 194 mg/dL [facility] Comment: eAG equivalents for HbA1c percentages: HbA1c(%) ?eAG(mg/dL) 6.0 ?126 6.5 ?140 7.0 ?154 7.5 ?169 8.0 ?183 8.5 ?197 9.0 ?212 9.5 ?226 10.0 ? 240 Limitations: The eAG calculation has not been validated on women, individuals below 18 years old and above 70 years old, and individuals with hemoglobinopathies. Additional resources are available on the ADA website: [email or web address].Zipline [email or web address] Maurice GODINEZ, Marion J, Miriam R, et al. ??Translating the A1C assay into estimated average glucose values. ??Diabetes Care 2008:31(8):8839-0245. Blood specimen (specimen) Venous Draw / Unknown 01/05/2016 5:44 AM EDT 01/05/2016 10:26 AM EDT Narrative Resulting Agency Comment Spec In Lab Umberto Mcgill MD CHEMISTRY ORDERABLES [facility] [place] [address] * (ABNORMAL) Differential, Automated (01/05/2016 5:44 AM EDT) Neutrophils % 78.3 % [facility] Neutr Abs (ANC) 9.70(H) 1.50 - 6.30 x10(3)/[facility] Lymphocytes % 14.0 % [facility] Lymphocytes Abs 1.7 1.0 - 3.6 x10(3)/[facility] Monocytes % 7.3 % [facility] Monocyte Abs 0.9 0.2 - 1.0 x10(3)/[facility] Eosinophils % 0.1 % [facility] Eosinophils Abs 0.0 0.0 - 0.5 x10(3)/[facility] Basophils % 0.1 % [facility] Basophils Abs 0.0 0.0 - 0.2 x10(3)/[facility] Immature Gran % 0.20 % [facility] Comment: Immature granulocytes(IG's)percentage and absolute count will include metamyelocytes, myelocytes, and promyelocytes. Blood smears from CBCs yielding IG's will be scanned manually for concordance. If this scan disagrees with the automated IG or if promyelocytes are noted, a manual differential will be performed. Zahra Gran Abs 0.03 0.00 - 0.05 x10(3)/[facility] Blood specimen (specimen) 01/05/2016 5:44 AM EDT 01/05/2016 6:01 AM EDT Narrative Resulting Agency Comment Spec In Lab Umberto Mcgill MD HEMATOLOGY ORDERABLE S [facility] [place] [address] * (ABNORMAL) Hemogram (01/05/2016 5:44 AM EDT) WBC 12.4(H) 4.0 - 10.0 x10(3)/[facility]AT[facility] RBC 4.44 3.93 - 5.22 x10(6)/[facility] Hemoglobin 12.0 11.2 - 15.7 gm/dL [facility] Hematocrit 36.3 34.0 - 45.0 % [facility] MCV 81.8 79.0 - 94.0 fL [facility] MCH 27.0 26.6 - 32.2 pg [facility] MCHC 33.1 32.0 - 36.5 gm/dL [facility] Platelets 225 145 - 370 x10(3)/mcL [facility] RDWSD 42.9 35.0 - 46.0 fL [facility] RDWCV 14.3 10.9 - 14.4 % [facility] MPV 11.3 9.0 - 12.0 fL [facility] Blood specimen (specimen) 01/05/2016 5:44 AM EDT 01/05/2016 6:01 AM EDT Narrative Resulting Agency Comment Spec In Lab Umberto Mcgill MD HEMATOLOGY ORDERABLE S [facility] [place] [address] * (ABNORMAL) Basic Metabolic Panel (non-fasting) (01/05/2016 5:44 AM EDT) Glucose Lvl 236(H) 65 - 199 mg/dL [facility] Comment:Diabetes: >=200 mg/d L plus symptoms BUN 10 8 - 18 mg/dL [facility] Creatinine 0.52(L) 0.70 - 1.20 mg/dL [facility] Comment: Please note that the pediatric reference intervals supplied above were not validated at [facility]. Results from pediatric patients should be interpreted in conjunction to the patient's age, height and muscle mass. Sodium 138 135 - 145 mmol/L [facility] Potassium 3.7 3.5 - 5.0 mmol/L [facility] Comment: Please note: ??Patients with WBC >100,000 may have falsely elevated Potassium levels. ??For accurate Potassium quantification in these patients send serum separator tube (gold top) for subsequent determinations. ??Contact the Clinical Chemistry Laboratory if there are any questions. Chloride 100 98 - 107 mmol/L [facility] CO2 24 22 - 31 mmol/L [facility] Anion Gap 14 5 - 15 mmol/L [facility] Calcium 7.9(L) 8.5 - 10.5 mg/dL [facility] Estimated GFR >60 >=60 [facility] Comment: This estimated GFR (eGFR) [...] the following links into your internet browser. [email or web address] Blood specimen (specimen) 01/05/2016 5:44 AM EDT 01/05/2016 6:01 AM EDT Narrative Resulting Agency Comment Spec In Lab Umberto Mcgill MD CHEMISTRY ORDERABLES Performing Organization Address City/[facility] [address]/ZIP Co de Phone Number [facility] [place] [address] * (ABNORMAL) POCT Glucose (01/04/2016 11:06 PM EDT) POC Glucose 214(H) 65 - 199 mg/dL [facility] Comment: Supplemental ranges: <140 mg/dL before meals <180 mg/dL all other times of the day Blood specimen (specimen) 01/04/2016 11:06 PM EDT 01/04/2016 11:06 PM EDT Yokasta Esquivel MD POINT OF CARE TEST ORDERABLES Performing Organization Address City/[facility] [address]/ZIP Co de Phone Number [facility] [place] [address] * (ABNORMAL) POCT Glucose (01/04/2016 8:48 PM EDT) POC Glucose 258(H) 65 - 199 mg/dL [facility] Comment: Supplemental ranges: <140 mg/dL before meals <180 mg/dL all other times of the day Blood specimen (specimen) 01/04/2016 8:48 PM EDT 01/04/2016 8:48 PM EDT Yokasta Esquivel MD POINT OF CARE TEST ORDERABLES Performing Organization Address City/[facility] [address]/[facility] Co de Phone Number [facility] [place] [address] * (ABNORMAL) POCT Glucose (01/04/2016 5:22 PM EDT) POC Glucose 218(H) 65 - 199 mg/dL [facility] Comment: Supplemental ranges: <140 mg/dL before meals <180 mg/dL all other times of the day Blood specimen (specimen) 01/04/2016 5:22 PM EDT 01/04/2016 5:22 PM EDT Yokasta Esquivel MD POINT OF CARE TEST ORDERABLES Performing Organization Address [facility] [address] [facility] Co de Phone Number [facility] [place] [address] documented in this encounter Visit Diagnoses Not on filedocumented in this encounter Admitting Diagnoses Diagnosis Obesity Obesity, unspecified documented in this encounter Administered Medications Inactive Administered Medications - up to 3 most recent administrations Medication Order MAR Action Action Date Dose Rate Site BUpivacaine (PF) (MARCAINE) 0.25 % (2.5 mg/mL) injection ONCE PRN, Starting on Mon01/04/16 at 1605, Until Mon01/04/16 at 1914, Intra-Operative (Intra-Procedure), Routine Given 01/04/2016 4:05 PM EDT 20 mg 19- Surgical Site documented in this encounter Active and Recently Administered Medications Times are shown in EDT. Scheduled Medication Order 01/04/2016 01/05/2016 01/06/2016 baclofen (LIORESAL) tablet 10 mg (CANCELED) 10 mg, Oral, 4 TIMES DAILY, First dose (after last reorder) on Mon01/04/16 at 2200, Until Discontinued, Routine 2200 (Not Given - Provider: Destiny Zuniga RN - Reason: NPO) 0807 (Given - Provider: Yasmine Stuart RN)1200 (Given - Provider: Yasmine Stuart RN)1641 (Given - Provider: Yasmine Stuart RN)2055 (Given - Provider: Destiny Zuniga RN) 0833 (Given - Provider: Abi Gagnon RN) enoxaparin (LOVENOX) injection 40 mg (COMPLETED) 40 mg, Subcutaneous, ONCE, 1 dose, On Mon01/04/16 at 1200, Please give in same day, Routine 1315 (Given - Provider: Misael Campos) enoxaparin (LOVENOX) injection 40 mg (CANCELED) 40 mg, Subcutaneous, EVERY 12 HOURS SCHEDULED (2 times per day), First dose on Mon01/05/16 at 0900, Until Discontinued, Routine 0808 (Given - Provider: Yasmine Stuart RN)2058 (Given - Provider: Destiny Zuniga RN) 0835 (Given - Provider: Abi Gagnon RN) gabapentin (NEURONTIN) 300 mg/6 mL (6 mL) oral liquid 600 mg 600 mg, Oral, DAILY, First dose on Mon01/05/16 at 0900, Until Discontinued, Routine 2056 (Given - Provider: Destiny Zuniga RN) 0835 (Not Given - Provider: Abi Gagnon RN - Reason: See comment - Comment: pt. takes at night) glipiZIDE (GLUCOTROL XL) CR tablet 10 mg 10 mg, Oral, DAILY WITH BREAKFAST, First dose on Mon01/05/16 at 1000, Until Discontinued, DO NOT CRUSH OR OPEN, Routine 1126 (Given - Provider: Yasmine Stuart RN) 0833 (Given - Provider: Abi Gagnon RN) insulin aspart (NovoLOG) VIAL injection 3-12 Units (CANCELED)(Linked Group 1) 3-12 Units, Subcutaneous, 3 TIMES DAILY BEFORE MEALS, First dose on Mon01/04/16 at 2100, Until Discontinued, CORRECTION BOLUS Resistant to insulin obese patient and TDD (total daily dose of all insulin needed to achieve glycemic control) greater than 60 units BG 140 - 160 Give 3 units BG 161 - 200 Give 6 units BG 201 - 240 Give 9 units BG greater than 240, give 12 units and recheck BG in 2 hours. If BG remains greater than 240, repeat 12 units (no more than three times) & call for new basal insulin orders. If less than 240 after two hours, give no insulin and resume prior schedule. 2101 (Given - Provider: Destiny Zuniga RN) 08 (Given - Provider: Yasmine Stuart RN)1200 (Given - Provider: Yasmine Stuart RN)164 (Given - Provider: Yasmine Stuart RN) 08 (Given - Provider: Abi Gagnon, BRENDAN) levothyroxine (SYNTHROID) tablet 25 mcg (CANCELED) 25 mcg, Oral, EVERY MORNING, First dose on Mon01/05/16 at 0600, Until Discontinued, Routine 06 (Not Given - Provider: Destiny Zuniga RN - Reason: NPO) 0618 (Given - Provider: Destiny Zuniga RN) lidocaine (LIDODERM) 5 % patch 2 patch (CANCELED)(Linked Group 2) 2 patch, Transdermal, DAILY, First dose on Mon01/05/16 at 0900, Until Discontinued, Apply patch(es) for 12 hours, and then remove for 12 hours, Routine 08 (Patch Applied - Provider: Yasmine Stuart RN - Comment: top of foot L. pt only wanted one patch on) 0830 (Patch Applied - Provider: Abi Gagnon RN - Comment: bilateral feet) metFORMIN (GLUCOPHAGE) tablet 500 mg (CANCELED) 500 mg, Oral, 2 TIMES DAILY WITH MEALS, First dose on Mon01/05/16 at 0800, Until Discontinued, Routine 08 (Given - Provider: Yasmine Stuart RN)164 (Given - Provider: Yasmine Stuart RN) 0800 (Not Given - Provider: Abi Gagnon RN - Reason: Patient/family refused) pantoprazole (PROTONIX) injection 40 mg (CANCELED) 40 mg, Intravenous, DAILY, First dose on Mon01/04/16 at 2000, Until Discontinued, Reconstitute with 10 mL of normal saline to a concentration of 4 mg/mL and infuse slowly over 2 minutes., Routine 2103 (Given - Provider: Destiny Zuniga RN) 0808 (Given - Provider: Yasmine Stuart, RN) 0837 (Not Given - Provider: Abi Gagnon RN - Reason: See comment - Comment: IV burning when flushed with NS, VAT notified) sodium chloride 0.9 % flush 5 mL (CANCELED) 5 mL, Intravenous, 2 TIMES DAILY, First dose on Mon01/04/16 at 2100, Until Discontinued, Recovery (Recovery-Hospital Unit), Routine 2104 (Given - Provider: Destiny Zuniga RN) 08 (Given - Provider: Yasmine Stuart, BRENDAN)210 (Given - Provider: Destiny Zuniga RN) 0837 (Given - Provider: Abi Gagnon, BRENDAN) Continuous Medication Order 01/04/2016 01/05/2016 01/06/2016 HYDROmorphone (DILAUDID) 1 mg/mL CLINIQUE COUNTER MANAGER 50 mL (CANCELED) Intravenous, CLINIQUE COUNTER MANAGER ONLY, Starting on Mon01/04/16 at 1800, Until Mon01/05/16 at 0920, Recovery (Recovery-Hospital Unit) 1753 (New Syringe/Cartridge - Provider: Benedicto Cameron RN) 1011 (Stopped - Provider: Carolina Hinkle, BRENDAN) lactated ringers infusion 1,000 mL (CANCELED) 1,000 mL, at 100 mL/hr, Intravenous, CONTINUOUS, Starting on Mon01/04/16 at 1815, Until Mon01/06/16 at 1300, Recovery (Recovery-Hospital Unit) 1802 (New Bag - Provider: Benedicto Cameron RN) 0357 (New Bag - Provider: Destiny Zuniga RN)1352 (New Bag - Provider: Yasmine Stuart, BRENDAN)2331 (New Bag - Provider: Destiny Zuniga RN) PRN Medication Order 01/04/2016 01/05/2016 01/06/2016 BUpivacaine (PF) (MARCAINE) 0.25 % (2.5 mg/mL) injection (CANCELED) ONCE PRN, Starting on Mon01/04/16 at 1605, Until Mon01/04/16 at 1914, Intra-Operative (Intra-Procedure), Routine 1605 (Given - Provider: Yokasta Esquivel MD) diphenhydrAMINE (BENADRYL) injection 12.5 mg (CANCELED) 12.5 mg, Intravenous, EVERY 6 HOURS PRN, 3 doses, Starting on Mon01/04/16 at 1731, Until Mon01/04/16 at 1914, Other, nausea, PACU Recovery, Routine 1735 (Given - Provider: Benedicto Cameron RN) fentaNYL (PF) 50 mcg/mL 2mL syringe (CANCELED)(Linked Group 3) 50 mcg, Intravenous, EVERY 5 MIN PRN, Pain, for 5-10 pain score, Starting on Mon01/04/16 at 1621, Until Mon01/04/16 at 1914, for 5-10 pain score Hold for respiratory rate less than 10 per minute. Maximum dose: 250 mcg over one hour., PACU Recovery 1820 (Given - Provider: Benedicto Cameron RN) HYDROmorphone (DILAUDID) syringe 0.2-0.4 mg (CANCELED) 0.2-0.4 mg, Intravenous, EVERY 5 MIN PRN, Pain, Starting on Mon01/04/16 at 1621, Until Mon01/04/16 at 1914, For moderate pain (4-6) give: 0.2 mg every 5 minute prn For severe pain (7-10) give: 0.4 mg every 5 minutes prn Maximum dose: 4 mg per hour Hold for respiratory rate less than 10 per minute., PACU Recovery 1700 (Given - Provider: Benedicto Cameron RN)1731 (Given - Provider: Benedicto Cameron RN)1736 (Given - Provider: Benedicto Cameron RN)1743 (Given - Provider: Benedicto Cameron RN)1748 (Given - Provider: Benedicto Cameron, BRENDAN) ondansetron (ZOFRAN) injection 4 mg (CANCELED) 4 mg, Intravenous, EVERY 30 MIN PRN, Starting on Mon01/04/16 at 1621, Until Mon01/04/16 at 1914, Nausea, May repeat 4 mg once in 30 minutes. If multiple antiemetics ordered, use ondansetron first and if ineffective use prochlorperazine second and if ineffective use promethazine, PACU Recovery 1816 (Given - Provider: Benedicto Cameron RN) ondansetron (ZOFRAN) injection 4 mg (COMPLETED) 4 mg, Intravenous, EVERY 30 MIN PRN, 2 doses, Starting on Mon01/04/16 at 1938, Until Mon01/04/16 at 2320, Nausea, May repeat dose once in 30 minutes if no relief from previous dose. If multiple antiemetics are ordered, use ondansetron first, prochlorperazine second. Per CLINIQUE COUNTER MANAGER order., Recovery (Recovery-Hospital Unit) 1943 (Given - Provider: Destiny Zuniga RN)2319 (Given - Provider: Destiny Zuniga RN) ondansetron (ZOFRAN) injection 4 mg (CANCELED) 4 mg, Intravenous, EVERY 8 HOURS PRN, Starting on Mon01/05/16 at 2113, Until Mon01/06/16 at 1300, Nausea 0 (Given - Provider: Destiny Zuniga RN) ondansetron (ZOFRAN-ODT) oral disintegrating tablet 4 mg 4 mg, Oral, EVERY 8 HOURS PRN, Starting on Mon01/06/16 at 0930, Until Mon01/06/16 at 1300, Nausea, If multiple anti-emetics are ordered, try zofran first, Routine oxyCODONE (ROXICODONE) immediate release tablet 5-10 mg 5-10 mg, Oral, EVERY 4 HOURS PRN, Starting on Mon01/05/16 at 0918, Until Mon01/06/16 at 1300, Pain, Give 5mg for pain 1-4; give 10mg for pain 5-10, Routine 1004 (Given - Provider: Carolina Hinkle RN)1352 (Given - Provider: Yasmine Stuart, BRENDAN)1749 (Given - Provider: Yasmine Stuart RN)2305 (Given - Provider: Destiny Zuniga RN) 0401 (Given - Provider: Padma Ulloa RN)0824 (Given - Provider: Abi Gagnon RN) prochlorperazine (COMPAZINE) injection 10 mg (CANCELED) 10 mg, Intravenous, EVERY 6 HOURS PRN, Starting on Mon01/05/16 at 2310, Until Mon01/06/16 at 1300, Nausea, Routine 2327 (Given - Provider: Destiny Zuniga RN) 0625 (Given - Provider: Destiny Zuniga RN) prochlorperazine (COMPAZINE) injection 5 mg (COMPLETED) 5 mg, Intravenous, EVERY 30 MIN PRN, 2 doses, Starting on Mon01/04/16 at 1938, Until Mon01/05/16 at 0602, Nausea, May repeat in 30 minutes if no relief from previous dose. HOLD if patient is sedated. Maximum dose is 40 mg in 24 hours. If multiple antiemetics are ordered, use ondansetron first, prochlorperazine second. Per CLINIQUE COUNTER MANAGER order., Recovery (Recovery-Hospital Unit), Routine 2111 (Given - Provider: Destiny Zuniga RN) 601 (Given - Provider: Destiny Zuniga RN) promethazine (PHENERGAN) injection 12.5 mg (CANCELED) 12.5 mg, Intravenous, EVERY 30 MIN PRN, Nausea, Starting on Mon01/04/16 at 1621, 2 doses, Until Mon01/04/16 at 1914, If multiple antiemetics ordered, use ondansetron first and if ineffective use prochlorperazine second and if ineffective use promethazine, PACU Recovery 1821 (Given - Provider: Benedicto Cameron RN - Comment: in 50 cc ns) Linked Groups Order Group 1: POCT Fingerstick Glucose (CANCELED) Routine, 4 TIMES DAILY BEFORE MEALS & AT BEDTIME, First occurrence on Mon01/04/16 at 2200, Until Specified, Consider choosing FOUR TIMES A DAY BEFORE MEALS AND AT BEDTIME as frequency for: Patients who have a good hypoglycemia awareness. And insulin aspart (NovoLOG) VIAL injection 3-12 Units (CANCELED)Jump to med 3-12 Units, Subcutaneous, 3 TIMES DAILY BEFORE MEALS, First dose on Mon01/04/16 at 2100, Until Discontinued, CORRECTION BOLUS Resistant to insulin obese patient and TDD (total daily dose of all insulin needed to achieve glycemic control) greater than 60 units BG 140 - 160 Give 3 units BG 161 - 200 Give 6 units BG 201 - 240 Give 9 units BG greater than 240, give 12 units and recheck BG in 2 hours. If BG remains greater than 240, repeat 12 units (no more than three times) & call for new basal insulin orders. If less than 240 after two hours, give no insulin and resume prior schedule. Group 2: lidocaine (LIDODERM) 5 % patch 2 patch (CANCELED)Jump to med 2 patch, Transdermal, DAILY, First dose on Mon01/05/16 at 0900, Until Discontinued, Apply patch(es) for 12 hours, and then remove for 12 hours, Routine And lidocaine (LIDODERM) 5 %(700 mg/patch) Patch Verification (CANCELED) Transdermal, 2 TIMES DAILY, First dose on Mon01/05/16 at 1115, Until Discontinued, Verify lidocaine 5 %(700 mg/patch) patch. And lidocaine (LIDODERM) patch REMOVAL (CANCELED) Transdermal, NIGHTLY, First dose on Mon01/04/16 at 2330, Until Discontinued, Remove lidocaine 5 %(700 mg/patch) patch Group 3: fentaNYL (PF) 50 mcg/mL 2mL syringe (CANCELED) 25 mcg, Intravenous, EVERY 5 MIN PRN, Pain, for 1-4 pain score, Starting on Mon01/04/16 at 1621, Until Mon01/04/16 at 1914, for 1-4 pain score Hold for respiratory rate less than 10 per minute. Maximum dose: 250 mcg over one hour., PACU Recovery Or fentaNYL (PF) 50 mcg/mL 2mL syringe (CANCELED)Jump to med 50 mcg, Intravenous, EVERY 5 MIN PRN, Pain, for 5-10 pain score, Starting on Mon01/04/16 at 1621, Until Mon01/04/16 at 1914, for 5-10 pain score Hold for respiratory rate less than 10 per minute. Maximum dose: 250 mcg over one hour., PACU Recovery documented in this encounter Care Teams Veterinary Laboratory Diagnostician Relationship Specialty Start Date End Date Nanda Oh MD [facility] [address] [place] [id number] PCP - General 09/14/10 06/06/18 documented as of this encounter
--- OUTSIDE RECORDS SUMMARY | 2024-05-15 11:12 | XMS_ITS | Encounter Summary ---
Author Organization [facility] [place] [address] Care Team Providers Care Swage Tender Name Role Phone Nanda Read MD Primary Care Provider Encounter Details Date Type Department Care Team (Late st Contact Info) Description 12/03/2015 External Results [place] [address] Margi Chang, RN Social History Tobacco Use Types Packs/Day [...] AM EDT TH Visit (TeleHealth) [phone] [id number] Wyatt Higgins MD [facility] [address] documented as of this encounter Visit Diagnoses Not on filedocumented in this encounter Care Teams Swage Tender Relationship Specialty Start Date End Date Nanda Read MD [facility] [address] [place] [address] PCP - General 09/14/10 06/06/18 documented as of this encounter
--- OUTSIDE RECORDS SUMMARY | 2024-05-15 11:12 | XMS_ITS | Encounter Summary ---
Author Organization [facility] Address [facility] [place] [address] Care Team Providers Care Administration Dean Name Role Phone Nanda Read MD Primary Care Provider [phone] Reason for Visit * Auth/Cert Specialty Diagnoses / Procedures Referred By Patricio monsivais Referred To Contact Diagnoses preoperative bariatric surgery, history of gastric ulcers and hiatal herni. rule out upper GI pathology and H pylori Procedures PRO UPPER GI ENDOSCOPY, DIAGNOSTIC EGD, UPPER GI ENDOSCOPY Referral ID Status Reason Start Date Expiration Date Visits Re quested Visits Authorized [id number] 1 1 Encounter Details Date Type Department Care Team (Late st Contact Info) Description 11/04/2015 11:07 AM EST Anesthesia [place] [address] Evangelista Rico MD [facility] [place] [address] Anesthesia Record Procedure Summary Procedure Name Responsible Anesthesiologist Anesthesia Start Time Anesthesia Stop Time EGD, UPPER GI ENDOSCOPY (WRVU 2.09) (Trunk) Evangelista Rico MD 11/04/15 1107 11/04/15 1133 Events Date Time Event Comment 11/04/2015 1105 1107 AN Verify 1107 Start 1107 An Start Data 1111 An Induction 1111 Anesthesia Ready 1133 an stop data 1133 Recovery or ICU Handoff Esperanza ent care was transferred to the destination unit staff after review of the patient's medical history, current anesthetic/surgical status and plan, according to the Provider Handoff Checklist. 1133 Stop Meds Name Total Propofol 20 mg Propofol INF 123.2 mg lactated ringers infusion 0 mL * Agents Name O2 Auxiliary Flowmeter 1 * Blood No blood administrations on file. Lines, Drains, and Airways Type Details Placement Removal (RETIRED) Peripheral IV Line - Single Lumen 11/04/15; 1102; metacarpal vein right (top of hand); [id number] catheter system; 22 gauge; intradermal injection; 0; 11/04/15; 1148 11/04/15 1102 by Saadia Hamilton RN 11/04/15 1148 by Khalida Kennedy RN documented in this encounter Social History Tobacco [...] OR Notes * Anesthesia Postprocedure Evaluation - Evangelista Rico MD - 11/04/2015 11:37 AM EST [facility] Department of Anesthesiology Post-procedure Note Patient: Martha Benoit Procedure Summary Date Anesthesia Start Anesthesia Stop Room / Location 11/04/15 1107 1133 [facility] END[facility] 8 / [facility] Procedure Diagnosis Surgeon Responsible Provider EGD, UPPER GI ENDOSCOPY (N/A Trunk) No diagnosis on file. Kisha Doss MD Hartman, Gregg S, MD (preoperative bariatric surgery, history of gastric ulcers and hiatal herni. rule out upper GI pathology and H pylori) Last (1hr) Vitals: BP 120/63 mmHg (11/04/15 1047) Temp Pulse 91 (11/04/15 1047) Resp 22 (11/04/15 1047) SpO2 98 % (11/04/15 1047) Patient Location: PACU/SDP Level of Consciousness: Awake and Alert Pain Management: Satisfactory Analgesia PONV: None Cardiovascular Status: At Baseline and Hemodynamically Stable Respiratory Status: At Baseline and Room Air Postoperative Fluid Status: Intravascular EUvolemia Possible Anesthetic Complications: NONE apparent at time of evaluation Final Primary Anesthesia Type: General (The anesthetic type performed was the same as planned.) Comments: EVANGELISTA RICO MD * Anesthesia Preprocedure Evaluation - Evangelista Rico MD - 11/04/2015 11:04 AM EST Pre-Anesthesia Evaluation for: Martha Benoit a 49 y.o. female. Procedure(s): EGD, UPPER GI ENDOSCOPY Patient Active Problem List Diagnosis ??? Gastroesophageal reflux EGD on 11/16/11: Normal examined duodenum. - 4 small non-bleeding antral erosions - small sliding hiatal hernia - previously identified esophagitis has healed ??? Seborrheic keratosis ??? Unspecified hypothyroidism ??? DM renal manif type II, uncontrolled ??? Peripheral autonomic neuropathy due to diabetes mellitus ??? Intestinal metaplasia of gastric mucosa-lower stomach-antrum ??? Peripheral neuropathy-severe generalized severe generalized peripheral neuropathy & Lt foot/toe drop 02/23/10: nerve conduction studies showed severe generalized peripheral neuropathy. In addition, there is active denervation across multiple root and peripheral nerve distribution in the left lower extremity. Dr. Julio Cesar Wright suggested lumbar puncture in [place] -if high protein, may need IVIG therapy or try two days of high dose steroid therapy ??? Morbid obesity Bariatric Surgery Program 1. Attended Introduction to the [facility] Bariatric Surgery Program seminar, a comprehensive two hour meeting that provides a program overview, education on bariatric surgeries offered at [facility], risks andbenefits, as well as patient expectations and follow up: 08/05/14. [facility] BSP Educational seminars viewed: 3. Grades on post-testin-100%. The [facility]SP Educational Handbook is provided at preoperative visit #1. 2. Pre-operative programmatic evaluations required: PCP evaluation and letter of support to proceedwith surgery, [facility]SP labwork (can be done on day of visit #1) and psychological evaluation- minimum of2 visits. 3. Bariatric Surgery Program evaluations with RD and TITLE CURATIVE SPECIALIST: 11/03/15 4. Weight history: 198 pounds on 08/25/04, 207 pounds on 03/20/09, 249 pounds on 07/01/14, 253 pounds on 02/20/15 5. Gallbladder status: 6. Insurer specific requirements: [place] medicaid- 3 months of supervised counseling 7. BSP Team meeting discussion: no ??? Vitamin D deficiency Lab 04/30: 25vitamin [...] ureteral stone extraction Jul - [facility] [place] ??? Chronic foot pain-s/p heel spur surgeries ? ? Diabetic retinopathy & neuropathy +DM for 10+ years -on insulin since 2006, +severe diabetic neuropathy and mild retinopathy A1c 8.3%(02/19/10)<-8.8%(10/2009)<-8.1%(05/31)<-8.9%(04/30)<-10.4%(10/08/08) <-12.7(04/29)<-11.6%(12/28)<-10.6(06/29)<-9.7% (04/28) Normal c-peptide 3.3 -> 1.5 (02/19/10) icd 9 357.2 No past medical history on file. Past Surgical History Procedure Laterality Date ??? Created by interface excision of a left foot heel spur in 11/2004 Procedure Date: Nov 2004 ??? Created by interface PRK for hyperopic astigmatism OU in 06/2004 Procedure Date: Jun 2004 ??? Created by interface tubal ligation BL Procedure Date: Unknown ??? Upper gi endoscopy, exam 11/16/2011 UPPER GI ENDOSCOPY performed by ALISA RICHARDS at [facility] END[facility]COPY ??? Pro upper gi endoscopy, biopsy 11/16/2011 EGD WITH BIOPSY performed by ALISA RICHARDS at [facility] END[facility]COPY ??? Tubal ligation ??? Cystoscopy Left 01/15/1995 stent placement ??? Lithotripsy Left 12/26/2000 ??? Cystoscopy Left 04/03/2001 ??? Cystoscopy Left 08/26/2001 ??? Cystoscopy Left 10/31/2000 ??? Heel spur surgery Left History Substance Use Topics ??? Smoking status: Never Smoker ??? Smokeless tobacco: Never Used ??? Alcohol Use: No History Drug Use No Allergies Allergen Reactions ??? Codeine Phosphate Nausea And Vomiting ??? Meperidine Medications: MAR and/or home medications have been reviewed. Physical Exam: Filed Vitals: 11/04/15 1047 BP: 120/63 Pulse: 91 Resp: 22 Body mass index is 43.76 kg/(m^2). Weight - Scale: (!) 112.038 kg (247 lb) Airway Assessment: Mallampati: II TM distance: >3 FB Neck ROM: full Cardiovascular Assessment: cardiovascular exam normal Pulmonary Assessment: breath sounds clear to auscultation pulmonary exam normal Dental Assessment: - normal exam Misc Assessment: Anesthesia Plan: ASA 3 MAC, with a(n) intravenous induction For endoscopy For upper endo Increased BMI PMHx: -CAD -HTN -RAD +DM -Liver/Kid dz -GERD -URI -Anes Complications NPO R & B reviewed Plan Propofol Region - Other Informed Consent: Anesthetic plan and risks discussed with patient. Plan discussed with POLICE INVESTIGATOR. PAT Staff Note documented in this encounter Plan of Treatment Upcoming Encounters Date Type Department Care Team (Late st Contact Info) Description 02/19/2025 9:00 AM EDT TH Visit (TeleHealth) [place] [address] Wyatt Higgins MD [facility] [place] [address] documented as of this encounter Visit Diagnoses Not on filedocumented in this encounter Administered Medications Inactive Administered Medications - up to 3 most recent administrations Medication Order MAR Action Action Date Dose Rate Site propofol (DIPRIVAN) 10 mg/mL bolus injection (Anesthesia) PRN, Starting on Mon11/04/15 at 1111, Until Mon11/04/15 at 1133, Anesthesia Intra-op Given 11/04/2015 11:11 AM EST 20 mg propofol (DIPRIVAN) infusion CONTINUOUS PRN, Starting on Mon11/04/15 at 1111, Until Mon11/04/15 at 1133, Anesthesia Intra-op, Routine New Bag 11/04/2015 11:11 AM EST 100 mcg/kg/min 67.2 mL/hr documented in this encounter Care Teams Administration Dean Relationship Specialty Start Date End Date Nanda Read MD [facility] [address] [place] [address] PCP - General 09/14/10 06/06/18 documented as of this encounter
--- OUTSIDE RECORDS SUMMARY | 2024-05-15 11:12 | XMS_ITS | Encounter Summary ---
Author Organization [facility] [place] [address] Care Team Providers Care Tile Layer Name Role Phone Nanda Read MD Primary Care Provider Reason for Visit * Reason Comments Diabetes Encounter Details Date Type Department Care Team (Late st Contact Info) Description 11/17/2015 3:30 PM EST Office Visit [place] [address] Judith Reinoso MD [facility] [address] [place] [address] Vitamin B12 deficiency Social History Tobacco Use Types Packs/Day [...] Progress Notes * Judith Reinoso MD - 11/17/2015 8:35 PM EST Endocrine Clinic Name: Martha Benoit : 1965 Date: 11/17/2015 PCP: NANAD READ MD Provided by: Judith Reinoso MD Reason for visit: Follow-up diabetes with plan for bariatric surgery with Dr. Mai soon (just completed bariatric eval and waiting for 2 weeks to know the date of the surgery) Diabetes treatment regimen: U-500 0.10-0.12 ml in am and pm. Humalog sliding scale p.r.n for correction of high BG>150 based on 1 unit for every 10 BG ratio. Also, metformin 500 mg bid, glipizide 10 mg bid and Invokana 100 mg qd. FSBG: average 160s over the past 2 weeks Most recent HA1c: 8.5% on 11/03/15 (was 7.6% on 03/05/15 with her PCP), Hypoglycemia during the interval time: none Diet: low fat/low carb diet Exercise: walking Complications: no changes during the interim. Prevention: same as last visit recently. She is having pre-op eval for bariatric surgery with Cathy Dillon NP and just seen Dr. Mai today with plan to wait for ~2 weeks for Cathy to call her back for the surgery date soon. She has completed the lists as requested before having gastric bypass (mammogram, advance directive, rehab, compliance, upper endoscopy, labs, etc). She used to take omeprazole 40 mg qd and is now prescribed 20 mg qd as there is only mild GERD. She has been eating better and cut back soda (just drinks water) and kept her wt stable (lost 4 lbs since last visit in ). She is still having foot drop, peripheral neuropathy with some LE weakness, using walker and used to see neurologist. She feels depressed and frustrated with her increasing disability from her obesity and diabetes. I talked to Shankar she needs to show her medication compliant as determined by bariatric trassplant team. She usedto get approval to go ahead for the surgery several years ago but then she was reluctant to have the surgery in the past. She feels ready for the surgery with Dr. Mai and we will continue to encou rage her to follow the plan and rec by bariatric team. Thus will greatly help with her wt and insulin resistance, especially when she could not tolerate metformin well (ok with 500 mg bid but not a full dose of 1,000 mg bid) and also had GI side effects with byetta or bydureon. Her vitamin D was very low at 18-> 38 better after increasing vitamin D 50.000 iu 2x/week and then tapered down to vitamin D 50,000 iu weekly with recent levels slightly low at 28-29 (nl 30-100) last week. So she recently increased vitamin D 50,000 iu 2x/week as rec'd by bariatric team a couple of weeks ago. Denies any changes in vision, no CP, SOB, GI issues, leg swelling or foot ulcer. She already had dilated eye exam in Nov with only cataract ou (mild). ROS: Please see HPI, all others negative Patient Active Problem List Diagnosis Code ??? History of kidney stones-bilateral Z87.442 ??? Chronic foot pain-s/p heel spur surgeries M79.673, G89.29 ? ? Diabetic retinopathy & neuropathy E11.319 ??? Preoperative Class III obesity BMI 43 E66.01 ??? Peripheral neuropathy-severe generalized G62.9 ??? Vitamin D deficiency E55.9 ??? DM renal manif type II, uncontrolled E11.29, E11.65 ??? Peripheral autonomic neuropathy due to diabetes mellitus E11.43 ??? Unspecified hypothyroidism E03.9 ??? Seborrheic keratosis L82.1 ??? Gastroesophageal reflux K21.9 ??? Increased PTH level E34.9 ??? Iron deficiency E61.1 ??? Less than ideal adherence to medication regimen and general health care Z91.19 ??? Memory loss R41.3 Current Outpatient Prescriptions on File Prior to Visit Medication Sig Dispense Refill ??? oxyCODONE-acetaminophen (PERCOCET) [...] to improve absorption 90 tablet 1 ??? INVOKANA 100 mg Tablet TAKE ONE TABLET BY MOUTH EVERY DAY 30 tablet 11 ??? [DISCONTINUED] exenatide microspheres (BYDUREON) 2 mg/0.65 mL Pen Injector Inject 2 mg subcutaneously every 7 days. 4 each 11 ??? gabapentin (NEURONTIN) 300 mg Capsule Take 600 mg by mouth daily. ??? pravastatin (PRAVACHOL) 20 mg Tablet Take 20 mg by mouth daily. ??? levothyroxine (SYNTHROID) 25 mcg tablet TAKE 1 TABLET BY MOUTH DAILY 90 tablet 4 ??? BD INSULIN SYRINGE ULT-FINE II 1 mL 31 x 5/16 Syrg USE WITH INSULIN TWO TIMES A DAY 100 Syringe 12 ??? insulin regular CONCENTRATE U-500 (HUMULIN R U-500 CONCENTRATED) 500 unit/mL Soln Inject subcutaneously 0.1 mL twice daily. 20 vial 4 ??? lidocaine (LIDODERM) 5 %(700 mg/patch) Place 1 patch onto the skin every 12 hours as needed. ??? baclofen (LIORESAL) 10 mg tablet Take 10 mg by mouth 4 times daily. ??? lisinopril (PRINIVIL;ZESTRIL) 2.5 mg tablet Take 2.5 mg by mouth daily. ??? folic acid (FOLVITE) 1 mg [...] by mouth 2 times daily. ??? [DISCONTINUED] OXYcodone-acetaminophen (PERCOCET) 5-325 mg per tablet Take 1 tablet by mouth every 4 hours. ??? Insulin Syringe-Needle U-100 (INSULIN SYRINGE) 1/2 mL 30 x 5/16 Syrg by [facility].(Non-Drug; Combo Route) route 2 times daily. Using with insulin bid 1 Box 4 No current facility-administered medications on file prior to visit. Allergies Allergen Reactions ??? Codeine Phosphate Nausea And Vomiting ??? Meperidine History Social History ??? Marital Status: Spouse Name: N/A Number of Children: N/A ??? Years of Education: N/A Occupational History ??? disabled Social History Main Topics ??? Smoking status: Never Smoker ??? Smokeless tobacco: Never Used ??? Alcohol Use: No ??? Drug Use: No ??? Sexual Activity: Not on file Other Topics Concern ??? Not on file Social History Narrative FAMILY HISTORY Family History Problem Relation Age of Onset ??? Diabetes ??? High Cholesterol ??? Hypertension ??? Stroke ??? Obesity ??? Psoriasis ??? * congenital malformation in her son/kidney stone ??? Diabetes Mother ??? Diabetes Father Physical exam LMP 10/30/2015 (Approximate) Appearance: Obese, pleasant, NAD, looks tired and feels frustrated that everyone else but her got the surgery date while she has to wait for another 2 weeks for the date. HEENT: PERRLA, EOMI Neck: no goiter or [...] Normal CMP Urine microalb/Cr -neg Recent labs with bariatric team Ref. Range 11/03/2015 13:10 WBC Latest Ref Range: 4.0-10.0 x10(3)/mcL 9.9 RBC Latest Ref Range: 3.93-5.22 x10(6)/mcL 5.15 Hemoglobin Latest Ref Range: 11.2-15.7 gm/dL 13.6 Hematocrit Latest Ref Range: 34.0-45.0 % 42.1 MCV Latest Ref Range: 79.0-94.0 fL 81.7 MCH Latest Ref Range: 26.6-32.2 pg 26.4 (L) MCHC Latest Ref Range: 32.0-36.5 gm/dL 32.3 RDWSD Latest Ref Range: 35.0-46.0 fL 43.6 RDWCV Latest Ref Range: 10.9-14.4 % 14.7 (H) Platelets Latest Ref Range: 145-370 x10(3)/mcL 286 MPV Latest Ref Range: 9.0-12.0 fL 10.7 Neutr Abs (ANC) Latest Ref Range: 1.50-6.30 x10(3)/mcL 6.39 (H) Neutrophils % Latest Units: % 64.4 Immature Gran % Latest Units: % 0.20 Lymphocytes % Latest Units: % 28.2 Monocytes % Latest Units: % 5.5 Eosinophils % Latest Units: % 1.3 Basophils % Latest Units: % 0.4 Zahra Gran Abs Latest Ref Range: 0.00-0.05 x10(3)/mcL 0.02 Lymphocytes Abs Latest Ref Range: 1.0-3.6 x10(3)/mcL 2.8 Monocyte Abs Latest Ref Range: 0.2-1.0 x10(3)/mcL 0.6 Eosinophils Abs Latest Ref Range: 0.0-0.5 x10(3)/mcL 0.1 Basophils Abs Latest Ref Range: 0.0-0.2 x10(3)/mcL 0.0 Sodium Latest Ref Range: 135-145 mmol/L 142 Potassium Latest Ref Range: 3.5-5.0 mmol/L 4.0 Chloride Latest Ref Range: 98-107 mmol/L 104 CO2 Latest Ref Range: 22-31 mmol/L 23 Anion Gap Latest Ref Range: 5-15 mmol/L 15 BUN Latest Ref Range: 8-18 mg/dL 13 Creatinine Latest Ref Range: 0.70-1.20 mg/dL 0.43 (L) Estimated GFR Latest Ref Range: >=60 >60 Glucose Lvl Latest Ref Range: 65-199 mg/dL 86 Calcium Latest Ref Range: 8.5-10.5 mg/dL 8.8 Hemoglobin A1C Latest Ref Range: 4.3-5.6 % 8.5 (H) Est Avg Gluc Latest Units: mg/dL 197 Uric Acid Latest Ref Range: 2.5-6.5 mg/dL 4.6 Total Protein Latest Ref Range: 6.1-8.0 gm/dL 7.7 Albumin Latest Ref Range: 3.2-5.2 gm/dL 3.9 Total Bilirubin Latest Ref Range: 0.2-1.3 mg/dL 0.2 Bili, Direct Latest Ref Range: 0.0-0.3 mg/dL 0.1 Alk Phos Latest Ref Range: 40-104 unit/L 93 AST Latest Ref Range: 0-30 unit/L 19 ALT Latest Ref Range: 0-30 unit/L 17 Ferritin Latest Ref Range: 30-400 ng/mL 23 (L) Folate Lvl Latest Ref Range: 4.6-34.8 ng/mL 19.2 Iron Latest Ref Range: 30-150 mcg/dL 30 TIBC Latest Ref Range: 250-450 mcg/dL 344 Iron Saturation Latest Ref Range: 20-50 % 9 (L) Vitamin B-12 Latest Ref Range: 207-974 pg/mL 327 25-OH Vit D Total Latest Ref Range: 30-100 ng/mL 29 (L) Vit B1 Lvl WB Latest Ref Range: 70-180 nmol/L 161 Vitamin A Latest Ref Range: 32.5-78.0 mcg/dL 37.7 Prealbumin Latest Ref Range: 20-40 mg/dL 20 TSH Latest Ref Range: 0.27-4.20 mcIU/mL 2.39 PTH Latest Ref Range: 15-65 pg/mL 73 (H) Assessment: Diabetes Type II - suboptimal with A1c 7.6-8.5% range with good c-peptide 2.9 from her own insulin production (but still not enough for her need due to insulin resistance and obesity), It's good thatjose luis kept her wt stable and lost a few lbs over the past year from 253 to 249 lbs today with plan for gastric bypass with Dr. Mai whom she saw today (pending for the surgery date after the next couple of weeks). She has insulin resistance and required U-500 0.12 ml (60u) bid along with 3 oral agents. She used to respond to victoza but had N/V even at a low dose, and could not tolerate bydureonweekly either due to GI side effects. She really wanted to have gastric bypass for her worsening diabetic neuropathy and now completed the full evaluation with our bariatric team. Complication Risk Status: complications present +sever peripheral neuropathy in both feet and walking with walker to help her balance Also, treated for chronic vttamin D deficiency (25vitamin D down 18 and then better at 38-47 after she took vitamin D 50,000 iu 2x/wk but then dropped to slightly low 28-29 range last week on vitD naomiy, so she was instructed to increase to 2x/weekly dose by bariatric team already. Her B12 was trending down from 400s to 300s and will give her B12 injection x1 again today as a booster dose and then cont OTC-B12 1,000 mcg qd sublingual further for her neuropathy Plan: 1. Medication: Adjustment of diabetes treatment regimen: To help both DM and wt down, she will cont with plan for bariatric surgery with Dr. Mai as planned. To cont glipizide 10 mg bid, invokana 100 mg qd, metformin 500 mg bid (could not tolerate the higher dose) To cont U-500 insulin 0.1-0.12 ml bid and allow her to titrate the dose to keep BG 90-180 range. To use Humalog pen sliding scale as needed (1u:10 BG ratio). To cont vitamin D 50,000 iu 2x/week as prescribed by bariatric team We gave her a booster dose of B12 1,000 mcg im x1 today to keep the level up in mid range. To continue all other medications, vitamin supplements as instructed,and healthy diet to keep wt down further 2. To answer the call from bariatric surgery team in 2 weeks for the date of gastric bypass soon for her obesity and diabetic neuropathy 3. Monitoring: to check FSBG before each meal and at bedtime. Target BG 90-150 while fasting and 80-180 pre-meal during daytime 1-2 h post meal below 200. Target A1c ~7% for this patient while on insulin 4. Diet and exercise: low fat/controlled carb diet & exercise as tolerated to keep weight down or at least stable. 5. Lab: Already checked lab recently as above 5. RTC: Next visit on the same day she is seeing Dr. Mai for post-hospital check up after gastric bypass. Will check lab before next visit for HbA1c, BMP, 25vitamin D, dLDL and annual urine microalbumin/Cr ratio. We have reviewed our plan outlined above with the patient and patient verbalized understanding. Allquestions were answered and most of the time was spent on counseling about medication adjustment and proper use of insulin, diet, exercise, cardiac risk prophylaxis, the diagnostic and therapeutic decisions, and coordination of care. Judith Reinoso MD, PhD, FACE CC: NANDA READ MD * Romelia Lebron LPN - 11/17/2015 4:31 PM EST Vitsmin B12 injection, administered IM to left deltoid. Site negative before and after injection. documented in this encounter Plan of Treatment Upcoming Encounters Date Type Department Care Team (Late st Contact Info) Description 02/19/2025 9:00 AM EDT TH Visit (TeleHealth) [place] [address] Wyatt Higgins MD [facility] [place] [address] documented as of this encounter Visit Diagnoses Diagnosis Vitamin B12 deficiency Other B-complex deficiencies documented in this encounter Administered Medications Inactive Administered Medications - up to 3 most recent administrations Medication Order MAR Action Action Date Dose Rate Site cyanocobalamin (vitamin B-12) injection 1,000 mcg 1,000 mcg, Intramuscular, ONCE, 1 dose, On Mon11/17/15 at 1615, Routine Given 11/17/2015 4:20 PM EST 1,000 mcg Left Deltoid documented in this encounter Care Teams Tile Layer Relationship Specialty Start Date End Date Nanda Read MD [facility] [address] [place] [address] PCP - General 09/14/10 06/06/18 documented as of this encounter
--- OUTSIDE RECORDS SUMMARY | 2024-05-15 11:12 | XMS_ITS | Encounter Summary ---
Author Organization [facility] [place] [address] Care Team Providers Care Team Foreman Name Role Phone Nanda Read MD Primary Care Provider [phone] Encounter Details Date Type Department Care Team (Late st Contact Info) Description 01/24/2016 12:05 AM EDT - 01/24/2016 11:59 PM EDT Hospital Encounter [place] [address] [address] Alexis Temporary Pain Discharge Disposition: Home Social History Tobacco Use [...] on file documented as of this encounter Medications at Time of Discharge Medication Sig Dispensed Refills Start Date End Date lidocaine (LIDODERM) 5 %(700 mg/patch) Place 1 patch onto the skin every 12 hours as needed. gabapentin (NEURONTIN) 300 mg/6 mL (6 mL) Solution Take 12 mLs by mouth daily for 30 days. 360 mL 0 01/06/2016 02/05/2016 ondansetron (ZOFRAN-ODT) 4 mg Tablet, Rapid Dissolve [...] 1/2 mL 30 x 5/16 Syrg by Misc.(Non-Drug; Combo Route) route 2 times daily. Using with insulin bid 1 Box 4 06/03/2011 04/06/2017 documented as of this encounter Plan of Treatment Upcoming Encounters Date Type Department Care Team (Late st Contact Info) Description 02/19/2025 9:00 AM EDT TH Visit (TeleHealth) [place] [address] [facility] [place] [address] documented as of this encounter Procedures Procedure Name Priority Date/Time Associated Diagnosis Comments FILM LIBRARY STORAGE ONLY CT ABDOMEN Routine 01/24/2016 12:05 AM EDT Pain documented in this encounter Results * Film Library- Storage Only CT Abdomen (01/24/2016 12:05 AM EDT) Narrative [facility] - 01/25/2016 11:34 AM EDT See PACS for result report. Dr Ashford [facility] FILM LIBRARY ORD ERABLES [place], [place] documented in this encounter Visit Diagnoses Diagnosis Pain Generalized pain documented in this encounter Care Teams Team Foreman Relationship Specialty Start Date End Date Nanda Read MD [address] [place] [address] PCP - General 09/14/10 06/06/18 documented as of this encounter
--- OUTSIDE RECORDS SUMMARY | 2024-05-15 11:12 | XMS_ITS | Encounter Summary ---
Author Organization Formerly [facility] [place] [address] Care Team Providers Care Manager Intensive Care Name Role Phone Nanda Oh MD Primary Care Provider [phone] Reason for Visit * Auth/Cert - Closed Specialty Diagnoses / Procedures Referred By Patricio monsivais Referred To Contact Diagnoses DEHYDRATION Procedures EMERGENCY IPI Referral ID Status Reason Start Date Expiration Date Visits Re quested Visits Authorized [id number] Closed 1 1 Encounter Details Date Type Department Care Team (Latest Contact Info) Description 01/25/2016 1:31 PM EDT - 01/27/2016 1:10 PM EDT Hospital Encounter [address] [place] [address] Jose Mai MD [facility] [place] [address] Discharge Disposition: Home Social History Tobacco Use [...] Sign Reading Time Taken Comments Blood Pressure 142/70 01/27/2016 10:59 AM EDT Pulse 76 01/27/2016 10:59 AM EDT Temperature 36.7 ??C (98.1 ??F) 01/27/2016 1 0:59 AM EDT Respiratory Rate 20 01/27/2016 10:5 9 AM EDT Oxygen Saturation 98% 01/27/2016 7:20 AM EDT Inhaled Oxygen Concentration - - Weight 101.7 kg (224 lb 3.3 oz) 01/25/2016 1:37 PM EDT Height 160 cm (5' 3) 01/25/2016 1:37 PM EDT Body Mass Index 39.72 01/25/2016 1:37 PM EDT documented in this encounter Discharge Summaries * Magaly Diego PA - 01/26/2016 12:49 PM EDT General Surgery Discharge Summary Patient Name: Martha Benoit Patient Age: 50 y.o. Birthdate: 1965 Admit date: 01/25/2016 Discharge date and time: 01/29/2016 Attending Physician: No att. providers found Primary Diagnosis: Nausea and Vomiting Operations and Procedures: Barium Swallow Surgeons: * Surgery not found * History of Present Illness: Ms. Benoit is a 50yo female who had a RNYGB on 01/04/16. She did well initially post-operatively, but she states when she progressed to the Gastric bypass stage III diet a couple of days ago she started to have difficulty keeping food down. She states her first issue was after she had attempted mashed potatoes for the second time. She states after only a couple of bites she started to have nausea and then vomited. She did not have any difficulty with fluids until just a couple of days ago when she was no longer able to keep any fluids down. She states on the afternoon of 01/23/16 she had an increase in her nausea, and since then has not had any po intake with food orfluids. She states her last BM was on 01/22, and she has not had any diarrhea. She has been voiding without any problems. She has been around her niece who had gastroenteritis approximately 10 days ago, and her son also had similar symptoms. She denies any recent chills or fevers. She admits she has b een using her PPI on a daily basis. She presented to an OSH on 01/25/16 and was transferred here for further care Hospital Course: Martha Benoit is a 50 y.o. female who was admitted on 01/25/2016 for evaluation and treatment for nausea and vomiting following progression to Stage III diet following RNYGB on 01/04/16. On HD#1 she had a Barium swallow performed that demonstrated no stricture, obstruction or leak. She was treated with a number of different anti-emetics with improvement in her symptoms. She was thenstarted on a Gastric bypass stage I diet, and when she seemed to tolerate that on HD# 2 she was advanced to a Gastric bypass stage II diet. Her pain was controlled with Tylenol. She was voiding without difficulty. She did have a couple of bowel movements prior to discharge and was passing flatus and taking PO without difficulty. Prior to discharge on HD# 2 Martha Benoit was afebrile, with stable vital signs. On HD# 2, she was discharged to home in stable condition. Vital Signs: Last value Range last 24hrs Temperature Temp: 36.7 ??C (98.1 ??F) Heart Rate Heart Rate: 76 Heart Rate: -- Blood Pressure BP: 142/70 mmHg BP: -- Respiratory Rate Resp: 20 Resp: -- SpO2 SpO2: 98 % SpO2: -- Pertinent Lab Data: No results for input(s): WBC, HGB, HCT, PLATELET, PT, INR, PTT in the last 72 hours. No results for input(s): NA, K, CL, CO2, BUN, CREATININE, GLUCOSE, CALCIUM, MAGNESIUM, PHOS in the last 72 hours. Physical Exam: General: NAD, resting comfortably, pleasant, conversant HEENT: PERRL, anicteric sclerae CVS: RRR Pulm: CTAB Abd: Old port sites well healed without evidence of edema, erythema or ecchymosis. No distention orTTP. Port site in the epigastric area with area of mild dehiscence. No drainage noted, no surrounding erythema or other s/s of infection : no problems with voiding Skin: warm, dry Ext: no c/c/e Neuro: CN 2-12 grossly intact, nonfocal,moving all four extremities spontaneously Imaging: Film Library- Storage Only Ct Abdomen 01/25/2016 See PACS for result report. Film Library- Storage Only Dx Abdomen 01/25/2016 See PACS for result report. Condition at discharge: Stable Mental Status: awake and alert, oriented x 3 Medications: Your Medications New Medications Dose Details LORazepam 0.5 mg Tab Commonly known as: ATIVAN Take 1 tablet by mouth every 6 hours as needed for Anxiety. 0.5 mg Quantity: 5 tablet Refills: 0 prochlorperazine 5 mg Tab Commonly known as: COMPAZINE Take 1 tablet by mouth every 6 hours as needed for Nausea. 5 mg Quantity: 30 tablet Refills: 0 Continued medications with new dosing Dose Details ondansetron 4 mg Tbdl Commonly known as: ZOFRAN-ODT Take 1 tablet by mouth every 8 hours as needed for Nausea (Attempt this one prior to IV administration. May use 4mg of IV if no relief within 30 minutes.). What changed: reasons to take this 4 mg Quantity: 20 tablet Refills: 0 Continued medications, unchanged Dose [...] by mouth daily. 1 mg Refills: 0 gabapentin 300 mg/6 mL (6 mL) Soln Commonly known as: NEURONTIN Take 12 mLs by mouth daily for 30 days. 600 mg Quantity: 360 mL Refills: 0 glipiZIDE 10 mg Tr24 Commonly known as: GLUCOTROL XL Take 1 tablet by mouth 2 times daily (before meals) for 30 days. 10 mg Quantity: 60 tablet Refills: 0 Insulin Lispro 100 unit/mL Inpn Commonly known as: HUMALOG Inject 2-12 Units subcutaneously 4 times daily as needed. 2-12 Units Quantity: 15 mL Refills: 0 Insulin Syringe-Needle U-100 1/2 mL 30 gauge x 5/16 Syrg Commonly known as: INSULIN SYRINGE by [facility] [place] [facility].(Non-Drug; Combo Route) route 2 [...] 01/17. Take until 07/16/16 to prevent gallstones 300 mg Quantity: 180 tablet Refills: 1 Disposition: Home Allergies: Allergies Allergen Reactions ??? Codeine Phosphate Nausea And Vomiting Outpatient Services/Studies: No discharge procedures on file. Scheduled Appointments: Future Appointments Provider Department Dept Phone 02/02/2016 3:30 PM Cathy Dillon, REJECT OPENER AND FILLER; BARIATRIC, COMB MACHINE OPERATOR General Surgery [phone] Instructions Given to Patient at Discharge: Minimally Invasive Surgery Discharge Instructions If you have any questions or concerns, please call [phone] before 5pm Monday through Monday; or [phone] after 5pm and on weekends. Diet: You should follow the Stage II diet for the next couple of weeks and slowly advance to the Stage III. Make sure to drink plenty of water and make sure to get plenty of protein. Activity: You have no restrictions to your Pain Medications: You may use Tylenol for pain as needed. Other Medication Changes: There have been no changes to any of your other medications, please resume taking them as you had been prior to surgery. Call your Dr: Please call if you notice worsening redness or drainage from incision sites, any foul-smelling drainage from the incision, pain not controlled by pain medications, persistent nausea andvomiting, or for any fevers greater than 101.3 F. Showering: You have no restrictions to showering. Wound Care: Once showering, wash your incision(s) daily with soap and rinse well, pat dry. Assess for any signs of infection such as increased redness, pain, warmth or drainage. The Steri-Strips willfall off in 7-10 days. The brown bandaids can be removed at any time. Follow-up: You have a follow-up appointment with Cathy Dillon APRN in the General Surgery clinic on Tuesday, February 02, 2016 at 3:30pm. Signed: BERE Pérez 01/29/2016 Primary Naheed Physician: NANDA OH MD [facility] [id number] / [facility] [id number] documented in this encounter Discharge Instructions * Discharge Instructions* Magaly Diego PA - 01/27/2016 8:44 AM EDT Scheduled Appointments: Future Appointments Provider Department Dept Phone 02/02/2016 3:30 PM Cathy Dillon APRN; BARIATRIC, COMB MACHINE OPERATOR General Surgery [phone] Instructions Given to Patient at Discharge: Minimally Invasive Surgery Discharge Instructions If you have any questions or concerns, please call [phone] before 5pm Monday through Monday; or [phone] after 5pm and on weekends. Diet: You should follow the Stage II diet for the next couple of weeks and slowly advance to the Stage III. Make sure to drink plenty of water and make sure to get plenty of protein. Activity: You have no restrictions to your Pain Medications: You may use Tylenol for pain as needed. Other Medication Changes: There have been no changes to any of your other medications, please resume taking them as you had been prior to surgery. Call your Dr: Please call if you notice worsening redness or drainage from incision sites, any foul-smelling drainage from the incision, pain not controlled by pain medications, persistent nausea andvomiting, or for any fevers greater than 101.3 F. Showering: You have no restrictions to showering. Wound Care: Once showering, wash your incision(s) daily with soap and rinse well, pat dry. Assess for any signs of infection such as increased redness, pain, warmth or drainage. The Steri-Strips willfall off in 7-10 days. The brown bandaids can be removed at any time. Follow-up: You have a follow-up appointment with Cathy Dillon APRN in the General Surgery clinic on Tuesday, February 02, 2016 at 3:30pm. documented in this encounter Medications at Time of Discharge Medication Sig Dispensed Refills Start Date End Date lidocaine (LIDODERM) 5 %(700 mg/patch) Place 1 patch onto the skin every 12 hours as needed. ondansetron (ZOFRAN-ODT) 4 mg Tablet, Rapid Dissolve Take 1 tablet by mouth every 8 hours as needed for Nausea (Attempt this one prior to IV administration. May use 4mg of IV if no relief within 30 minutes.). 20 tablet 0 01/27/2016 07/05/2016 prochlorperazine (COMPAZINE) 5 mg Tablet Take 1 tablet by mouth every 6 hours as needed for Nausea. 30 tablet 0 01/27/2016 07/05/2016 LORazepam (ATIVAN) 0.5 mg Tablet Take 1 tablet by mouth every 6 hours as needed for Anxiety. 5 tablet 0 01/27/2016 07/05/2016 gabapentin (NEURONTIN) 300 mg/6 mL (6 mL) Solution Take 12 mLs by mouth daily for 30 days. 360 mL 0 01/06/2016 02/05/2016 glipiZIDE (GLUCOTROL XL) 10 mg Tablet Extended [...] 1/2 mL 30 x 5/16 Syrg by [facility] [place].(Non-Drug; Combo Route) route 2 times daily. Using with insulin bid 1 Box 4 06/03/2011 04/06/2017 documented as of this encounter Progress Notes * Margi Romero RN - 01/27/2016 1:08 PM EDT Pt being discharged home in stable condition at this time. Pt medicated for nausea prior to DC. Alldischarge paperwork reviewed with pt and family. Reinforced pt needs to be on full liquids for weeks and no solids should be eaten. Pt leaving the floor in stable condition with family by wheelchair at this time. * Hilda Stokes - 01/26/2016 2:11 PM EDT Service: Min Invasive Surgery 2720 CM Hilda Stokes RN,BSN [phone] Office of Care Management (OCM) / Hospitality Ambassador(CM)/ Initial Assessment Discussed patient with Provider Team. Reviewed record Unable to meet with pt as she was too nauseated and vomiting. Reviewed pt record and talked to the PA working with her. Unless pt goes home with IV antibiotics no needs are anticipated. REASON for HOSPITALIZATION: Uncontrolled nausea with vomiting PMH See H&P PREVIOUS FUNCTIONAL STATUS: Independent CURRENT FUNCTIONAL STATUS: Independent PLAN: CM will continue to monitor progress, follow for continuity of care and assist with dischargeplanning while hospitalized . * Magaly Diego PA - 01/26/2016 12:35 PM EDT Minimally Invasive Surgery Inpatient Progress Note ID: Martha Benoit is a 50 y.o. female who presented to an OSH on 01/25/16 with c/o 2 day hx of nauseaand vomiting. She is s/p RNYGB from 01/04/16 and had been doing fine up until the morning of 01/23/16.She was transferred here and admitted for evaluation and rehydration. 24hr events: ?? No acute events ?? Admitted to 4W Subjective: Admits to being extremely tired, and states she is not able to get much rest because ofthe constant nausea. She does not feel that any of the meds are helping with her nausea or vomiting. She has not been ambulating other than to the bathroom. She has not had any problems with voiding.She denies cp/sob. O: Last value Range last 24hrs Temperature Temp: 36.7 ??C (98.1 ??F) Temp: [36.3 ??C (97.3 ??F)-37.3 ??C (99.1 ??F)] Heart Rate Heart Rate: 98 Heart Rate: [78-111] Blood Pressure BP: 140/70 mmHg BP: (105-183)/(57-87) Respiratory Rate Resp: 20 Resp: [12-20] SpO2 SpO2: 98 % SpO2: [95 %-98 %] 01/24 0701 - 01/25 0700 In: 2315 [I.V.:1850] Out: 2675 [Urine:2675] Physical Exam: General: NAD, resting comfortably with intermittent episodes of dry heaving, pleasant, conversant HEENT: PERRL, anicteric sclerae CVS: RRR Pulm: CTAB Abd: Old port sites well healed without evidence of edema, erythema or ecchymosis. No distention orTTP. Port site in the epigastric area with area of mild dehiscence. No drainage noted, no surrounding erythema or other s/s of infection : no problems with voiding Skin: warm, dry Ext: no c/c/e Neuro: non-focal, moving all four extremities spontaneously Labs: Recent Labs 01/25/16 1449 WBC 8.6 HGB 13.5 HCT 41.1 PLATELET 204 Recent Labs 01/25/16 1449 NA 137 K 3.8 CL 99 CO2 20* BUN 2* CREATININE 0.41* Microbiology: None New Studies: Barium Swallow from 01/26/16 ASSESSMENT: Martha Benoit is a 50 y.o. female who presented to an OSH on 01/25/16 with c/o 2 day hx of nausea and vomiting. She is s/p RNYGB from 01/04/16 and had been doing fine up until the morning of01/23/16. She was transferred here and admitted for evaluation and rehydration. Barium swallow this am without abnormality or any indication of cause of nausea/vomiting. Discussedwith pt cause could be gastroenteritis. Will continue with antiemetics, and attempt to advance diet as tolerated. PLAN: NEURO: Pain control with Tylenol. Continue home Neurontin. CV: No acute issues. PULM: Encourage frequent ambulation and IS use GI: Diet Gastric Bypass diet Stage I-Clear : no problems with voiding; monitor UOP closely FEK: LR 125cc/hr; will decrease when tolerating po adequately; monitor lytes and replace prn ID: no indication of active infection HEME: no indication of active bleeding ENDO: Continue home synthroid 25mcg daily PROPHYLAXIS: Lovenox for DVT; Protonix for gastric DISPO: Floor status, Full Code Plan for discharge when nausea and vomiting are better controlled and tolerating fluids adequately. BERE PÉREZ 01/26/2016 documented in this encounter H&P Notes * Magaly Diego PA - 01/25/2016 2:31 PM EDT Minimally Invasive Surgery History and Physical Exam Patient: Martha Benoit Date of : 1965 Date of Admission: 01/25/2016 Attending: Jose Mai MD CC: Nausea, vomiting and dehydration s/p RNYGB on 01/04/16 HPI: Ms. Benoit is a 50yo female who had a RNYGB on 01/04/16. She did well initially post-operatively, but she states when she progressed to the Gastric bypass stage III diet a couple of days ago she started to have difficulty keeping food down. She states her first issue was after she had attempted mashed potatoes for the second time. She states after only a couple of bites she started to have nausea and then vomited. She did not have any difficulty with fluids until just a couple of days ago when she was no longer able to keep any fluids down. She states on the afternoon of 01/23/16 she had an increase in her nausea, and since then has not had any po intake with food or fluids. She states herlast BM was on 01/22, and she has not had any diarrhea. She has been voiding without any problems. She has been around her niece who had gastroenteritis approximately 10 days ago, and her son also had similar symptoms. She denies any recent chills or fevers. She admits she has been using her PPI on adaily basis. She presented to an OSH on 01/25/16 and was transferred here for further care. Allergies: Allergies Allergen Reactions ??? Codeine Phosphate Nausea And Vomiting Medications: Your Medications UNREVIEWED medications - Discuss With Your Provider Dose Details baclofen 10 mg Tab Commonly [...] by mouth daily. 1 mg Refills: 0 gabapentin 300 mg/6 mL (6 mL) Soln Commonly known as: NEURONTIN Take 12 mLs by mouth daily for 30 days. 600 mg Quantity: 360 mL Refills: 0 glipiZIDE 10 mg Tr24 Commonly known as: GLUCOTROL XL Take 1 tablet by mouth 2 times daily (before meals) for 30 days. 10 mg Quantity: 60 tablet Refills: 0 Insulin Lispro 100 unit/mL Inpn Commonly known as: HUMALOG Inject 2-12 Units subcutaneously 4 times daily as needed. 2-12 Units Quantity: 15 mL Refills: 0 Insulin Syringe-Needle U-100 1/2 mL 30 gauge x 5/16 Syrg Commonly known as: INSULIN SYRINGE by [facility] [place].(Non-Drug; Combo Route) route 2 [...] 20 mg Quantity: 90 capsule Refills: 2 ondansetron 4 mg Tbdl Commonly known as: ZOFRAN-ODT Take 1 tablet by mouth every 8 hours as needed for Nausea. 4 mg Quantity: 20 tablet Refills: 0 pravastatin 20 mg Tab Commonly known as: PRAVACHOL Take 20 mg by mouth daily. 20 mg Refills: 0 ursodiol 300 mg Cap Commonly known as: ACTIGALL Take 1 capsule by mouth 2 times daily for 180 days. Start at 2 weeks post op on 01/17. Take until 07/16/16 to prevent gallstones 300 mg Quantity: 180 tablet Refills: 1 Past Medical History: No past medical history on file. Past Surgical History: Past Surgical History Procedure Laterality Date ??? Created by interface excision of a left foot heel spur in 11/2004 Procedure Date: Nov 2004 ??? Created by interface PRK for hyperopic astigmatism OU in 06/2004 Procedure Date: Jun 2004 ??? Created by interface tubal ligation BL Procedure Date: Unknown ??? Upper gi endoscopy, exam 11/16/2011 UPPER GI ENDOSCOPY performed by ALISA RICHARDS at [facility] ENDOSCOPY ??? Pro upper gi endoscopy, biopsy 11/16/2011 EGD WITH BIOPSY performed by ALISA RICHARDS at [facility] ENDOSCOPY ??? Tubal ligation ??? Cystoscopy Left 01/15/1995 stent placement ??? Lithotripsy Left 12/26/2000 ??? Cystoscopy Left 04/03/2001 ??? Cystoscopy Left 08/26/2001 ??? Cystoscopy Left 10/31/2000 ??? Heel spur surgery Left ??? Pro upper gi endoscopy, diagnostic N/A 11/04/2015 EGD, UPPER GI ENDOSCOPY performed by Kisha Doss MD at [facility] ENDOSCOPY ??? Pro lap gastric bypass/reinaldo-en-y N/A 01/04/2016 @LAPAROSCOPIC GASTROPLASTY, performed by Jose Mai MD at [facility] MAIN OR ??? Pro upper gi endoscopy, diagnostic N/A 01/04/2016 ENDOSCOPY, UPPER GI, DIAGNOSTIC, WITH OR WITHOUT SPECIMENS performed by Jose Mai MD at [facility] MAIN OR Vital Signs: Filed Vitals: 01/25/16 1352 BP: 105/69 Pulse: 100 Temp: 36.3 ??C (97.3 ??F) Resp: 12 Physical Exam General: A&O x3; NAD; conversant and answers questions appropriately. HEENT: normocephalic CVS: RRR Pulm: CTA Bilaterally Abd: Old port sites well healed without evidence of edema, erythema or ecchymosis. No distention orTTP. Port site in the epigastric area with area of mild dehiscence. No drainage noted, no surrounding erythema or other s/s of infection. : No problems with voiding Skin: clear/dry Extremities: moves all 4 spontaneously; no edema noted Neuro: nonfocal Assessment/Plan: Martha Benoit is a 50yo female s/p RNYGB from 01/04/16 with approximate 2 day hx of persistent nausea and vomiting. She presented to an OSH and was transferred here for further care. Scheduled for Barium swallow to happen on the morning of 01/26/16. Neuro: Pain control with Tylenol; will continue home Neurontin 600mg daily. CV: No active issues Pulm: Encourage frequent ambulation and IS when in bed. GI: NPO until after barium swallow; will advance when appropriate : monitor UOP closely FEK: LR 125cc/hr; monitor lytes and replace prn ID: no indication of active infection; monitor CBC Heme: no indication of active bleeding Endo: Continue home synthroid 25mcg daily Prophylaxis: Lovenox for DVT; Protonix for gastric Dispo: Floor status; Full code Plan for Barium Swallow on the morning of 01/26/16; will determine a plan based on findings. BERE PÉREZ 01/25/2016 documented in this encounter Miscellaneous Notes * Plan of Care - Paul Callejas RN - 01/27/2016 4:03 AM EDT Problem: General Plan of Care Goal: Plan of Care Review Outcome: Ongoing (Interventions Implemented as Appropriate) 01/26/16 1531 01/27/16 001 Plan of Care Review Plan of Care Outcome Status ongoing (interventions implemented as appropriate) -- Progress improving -- Coping/Psychosocial Response Interventions Plan of Care Reviewed with -- patient Goal: Individualization and Mutuality Outcome: Ongoing (Interventions Implemented as Appropriate) 01/25/16 1300 Mutuality/Individual Preferences What anxieties, fears or concerns do you have about your health or care? being back so soon What questions do you have about your health or care? none What information would help us give you more personalized care? none Goal: Fall Prevention-Safe Patient Handling 01/26/16219901/26/16234401/27/1610 P[place]co Fall Risk History of Falling -- 25 -- Secondary Diagnosis -- 15 -- Ambulatory Aids -- 15 -- Intravenous Therapy/Heparin/Saline Lock -- 20 -- Gait/Transferring -- 10 -- Mental Status -- 0 -- Score -- 85 -- Activity and Safety Assistive Device Front wheel walker -- -- OTHER [place] Fall Risk -- High -- Safety Interventions Safety Precautions/Fall Reduction -- assistive device;bed alarm;chair alarm;fall reduction program maintained;lighting adjusted for task/safety;low bed;mobility aid;muscle strengthening facilitated;nonskid shoes/slippers when out of bed;room near unit station -- Musculoskeletal Interventions Activity/Level of Assistance up in room;with walker;independently;with stand by assist -- -- Positioning HOB up 30-45 degrees;independent -- -- Muscle Strengthening -- -- activity/mobility promoted;mobility in bed promoted;personal routines for BADL/IADL promoted;sitting on edge of bed encouraged;strengthening exercises performed;up in chairencouraged for meals and activities Self-Care Promotion -- -- hygiene assistance provided;independence encouraged while providing assistance Goal: Infection Control Outcome: Ongoing (Interventions Implemented as Appropriate) 01/26/16234401/27/1610 Coping/Psychosocial Response Interventions Counseling -- emotional support provided;goal setting facilitated;personal strengths integrated;problem solving facilitated;reassurance provided;relaxation techniques promoted;understanding of situation facilitated;verbalization of feelings encouraged Safety Interventions Isolation Precautions standard precautions maintained -- Infection Prevention bronchial hygiene promoted;environmental surveillance;hydration promoted;nutrition promoted;promote handwashing;rest/sleep promoted -- Goal: Discharge Needs Assessment Outcome: Ongoing (Interventions Implemented as Appropriate) 01/26/16 153 Discharge Needs Assessment Concerns to be Addressed no discharge needs identified Readmission Within the Last 30 Days clinical decline Equipment Needed After Discharge none Current Health Anticipated Changes Related to Illness none Living Environment Transportation Available car;family or friend will provide Self-Care Equipment Currently Used at Home walker, standard Problem: Fall/Trauma/Injury Risk (Adult, Obstetrics) Goal: Identify Signs and Symptoms and Related Risk Factors Signs and symptoms and related risk factors are identified upon initiation of Human Response Clinical Practice Guideline (CPG) Outcome: Ongoing (Interventions Implemented as Appropriate) 01/26/161530 Fall/Trauma/Injury Risk Personal Related Risk Factors (Fall/Trauma/Injury Risk) emotional state;fatigue/slowed reaction time;gait/mobility problems/weakness;history of falls;improper use of assistive devices Environmental Related Risk Factors (Fall/Trauma/Injury Risk) environment unfamiliar Physiological Related Risk Factors (Fall/Trauma/Injury Risk) gastrointestinal alterations Treatment Related Related Risk Factors (Fall/Trauma/Injury Risk) medication Goal: Absence of Trauma/Injury/Falls Patient will demonstrate the desired outcomes. Outcome: Ongoing (Interventions Implemented as Appropriate) 01/26/161530 Fall/Trauma/Injury Risk (Adult, Obstetrics) Absence of Trauma/Injury/Falls making progress toward outcome * Plan of Care - Ilsa Parekh RN - 01/26/2016 3:44 PM EDT Problem: General Plan of Care Goal: Plan of Care Review Outcome: Ongoing (Interventions Implemented as Appropriate) 01/26/161530 Plan of Care Review Plan of Care Outcome Status ongoing (interventions implemented as appropriate) Progress improving Coping/Psychosocial Response Interventions Plan of Care Reviewed with patient OUTCOME EVALUATION NOTE: OUTCOME SUMMARY: Ms. Benoit continues to complain of nausea. No emesis or dry heaving observed. Completed barium swallow eval in the morning. Has declined activity, hygiene and has refused PO intake despite RN and PA encouragement. Observed to be sleeping between care. Will continue to monitor. PLAN MOVING FORWARD: Nausea control INDIVIDUALIZED FALL PREVENTION INTERVENTIONS: Patient-specific fall risk factors per assessment: [current deficits]: Uses walker at baseline, nausea, IV Assistance [level of assistance required for transfers and ambulation]: Standby Supervision [direct monitoring required during toileting and ADLs]: Arms reach Surveillance [continuous indirect monitoring]: Bed alarm, chair alarm, purposeful rounding Patient-specific fall prevention interventions for sensory deficits provided, if applicable: N/A CPG GOAL OUTCOME EVALUATION: Goal: Individualization and Mutuality Outcome: Ongoing (Interventions Implemented as Appropriate) 01/25/16 1300 Mutuality/Individual Preferences What anxieties, fears or concerns do you have about your health or care? being back so soon What questions do you have about your health or care? none What information would help us give you more personalized care? none Goal: Fall Prevention-Safe Patient Handling Outcome: Ongoing (Interventions Implemented as Appropriate) 01/25/16 2251 01/26/16 0900 01/26/16 1328 [place] Fall Risk History of Falling -- 25 -- Secondary Diagnosis -- 15 -- Ambulatory Aids -- 15 -- Intravenous Therapy/Heparin/Saline Lock -- 20 -- Gait/Transferring -- 10 -- Mental Status -- 15 -- Score -- 100 -- Activity and Safety Assistive Device Front wheel walker -- -- OTHER [place] Fall Risk -- High -- Safety Interventions Safety Precautions/Fall Reduction -- bed alarm;chair alarm;environmental modification;fall reduction program maintained;lighting adjusted for task/safety;mobility aid;nonskid shoes/slippers when out of bed;room near unit station;supervised activity -- Musculoskeletal Interventions Activity/Level of Assistance -- -- up in room;ambulated;bed rest Positioning -- HOB up 30-45 degrees;supine;independent -- Muscle Strengthening activity/mobility promoted;mobility in bed promoted;personal routines for BADL/IADL promoted;sitting on edge of bed encouraged;up in chair encouraged for meals and activities -- -- Self-Care Promotion personal routines for BADL/IADL promoted -- -- Goal: Infection Control Outcome: Ongoing (Interventions Implemented as Appropriate) 01/26/16 0900 Coping/Psychosocial Response Interventions Counseling emotional support provided;reassurance provided;understanding of situation facilitated;verbalization of feelings encouraged Safety Interventions Isolation Precautions standard precautions maintained Infection Prevention rest/sleep promoted;promote handwashing;nutrition promoted;hydration promoted;environmental surveillance;bronchial hygiene promoted;blood glucose management Goal: Discharge Needs Assessment Outcome: Ongoing (Interventions Implemented as Appropriate) 01/26/16 1531 Discharge Needs Assessment Concerns to be Addressed no discharge needs identified Readmission Within the Last 30 Days clinical decline Equipment Needed After Discharge none Current Health Anticipated Changes Related to Illness none Living Environment Transportation Available car;family or friend will provide Self-Care Equipment Currently Used at Home walker, standard Problem: Fall/Trauma/Injury Risk (Adult, Obstetrics) Goal: Identify Signs and Symptoms and Related Risk Factors Signs and symptoms and related risk factors are identified upon initiation of Human Response Clinical Practice Guideline (CPG) Outcome: Ongoing (Interventions Implemented as Appropriate) 01/26/16 1531 Fall/Trauma/Injury Risk Personal Related Risk Factors (Fall/Trauma/Injury Risk) emotional state;fatigue/slowed reaction time;gait/mobility problems/weakness;history of falls;improper use of assistive devices Environmental Related Risk Factors (Fall/Trauma/Injury Risk) environment unfamiliar Physiological Related Risk Factors (Fall/Trauma/Injury Risk) gastrointestinal alterations Treatment Related Related Risk Factors (Fall/Trauma/Injury Risk) medication Goal: Absence of Trauma/Injury/Falls Patient will demonstrate the desired outcomes. Outcome: Ongoing (Interventions Implemented as Appropriate) 01/26/16 1531 Fall/Trauma/Injury Risk (Adult, Obstetrics) Absence of Trauma/Injury/Falls making progress toward outcome * Plan of Care - Paul Callejas RN - 01/26/2016 2:26 AM EDT Problem: General Plan of Care Goal: Plan of Care Review Outcome: Ongoing (Interventions Implemented as Appropriate) 01/25/16 1733 01/25/16 2251 Plan of Care Review Plan of Care Outcome Status ongoing (interventions implemented as appropriate) -- Progress no change -- Coping/Psychosocial Response Interventions Plan of Care Reviewed with -- patient Goal: Individualization and Mutuality Outcome: Ongoing (Interventions Implemented as Appropriate) 01/25/16 1300 Mutuality/Individual Preferences What anxieties, fears or concerns do you have about your health or care? being back so soon What questions do you have about your health or care? none What information would help us give you more personalized care? none Goal: Fall Prevention-Safe Patient Handling Outcome: Ongoing (Interventions Implemented as Appropriate) 01/25/16 2251 [place] Fall Risk History of Falling 25 Secondary Diagnosis 15 Ambulatory Aids 15 Intravenous Therapy/Heparin/Saline Lock 20 Gait/Transferring 10 Mental Status 15 Score 100 Activity and Safety Assistive Device Front wheel walker OTHER [place] Fall Risk High Safety Interventions Safety Precautions/Fall Reduction assistive device;bed alarm;chair alarm;elopement precautions initiated;environmental modification;fall reduction program maintained;lighting adjusted for task/safety;low bed;mobility aid;muscle strengthening facilitated;nonskid shoes/slippers when out of bed;room near unit station;supervised activity Musculoskeletal Interventions Activity/Level of Assistance up in room;ambulated;with walker;with stand by assist Positioning independent Muscle Strengthening activity/mobility promoted;mobility in bed promoted;personal routines for BADL/IADL promoted;sitting on edge of bed encouraged;up in chair encouraged for meals and activities Self-Care Promotion personal routines for BADL/IADL promoted Goal: Infection Control Outcome: Ongoing (Interventions Implemented as Appropriate) 01/25/162250 Safety Interventions Isolation Precautions standard precautions maintained Infection Prevention blood glucose management;bronchial hygiene promoted;environmental surveillance;promote handwashing;rest/sleep promoted Coping/Psychosocial Response Interventions Counseling calming techniques promoted;emotional support provided;goal setting facilitated;personalstrengths integrated;problem solving facilitated;reassurance provided;relaxation techniques promoted;understanding of situation facilitated;verbalization of feelings encouraged Goal: Discharge Needs Assessment Outcome: Ongoing (Interventions Implemented as Appropriate) 01/25/16 1300 01/25/16 1733 Discharge Needs Assessment Concerns to be Addressed -- no discharge needs identified Readmission Within the Last 30 Days -- clinical decline Equipment Needed After Discharge -- none Current Health Anticipated Changes Related to Illness -- none Living Environment Transportation Available -- car;family or friend will provide Self-Care Equipment Currently Used at Home walker, standard -- Problem: Fall/Trauma/Injury Risk (Adult, Obstetrics) Goal: Identify Signs and Symptoms and Related Risk Factors Signs and symptoms and related risk factors are identified upon initiation of Human Response Clinical Practice Guideline (CPG) Outcome: Ongoing (Interventions Implemented as Appropriate) 01/26/16223 Fall/Trauma/Injury Risk Personal Related Risk Factors (Fall/Trauma/Injury Risk) emotional state;fatigue/slowed reaction time;gait/mobility problems/weakness Goal: Absence of Trauma/Injury/Falls Patient will demonstrate the desired outcomes. Outcome: Ongoing (Interventions Implemented as Appropriate) 01/26/16223 Fall/Trauma/Injury Risk (Adult, Obstetrics) Absence of Trauma/Injury/Falls making progress toward outcome * Plan of Care - Johanne Cesar Moon - 01/25/2016 5:44 PM EDT Problem: General Plan of Care Goal: Plan of Care Review Outcome: Ongoing (Interventions Implemented as Appropriate) 01/25/16 1300 01/25/16 1733 Plan of Care Review Plan of Care Outcome Status -- ongoing (interventions implemented as appropriate) Progress -- no change Coping/Psychosocial Response Interventions Plan of Care Reviewed with patient -- OUTCOME EVALUATION NOTE: OUTCOME SUMMARY: Ms. Benoit arrived to today around 1300 by stretcher from ambulance from outside hospital. Oriented to room, shown use of call dukes system, pt verbalized understanding. She ambulated to the bathroom with a walker and 1 assist. Slept for the rest of the shift, pt reporting not sleeping well for past few days. Maintained NPO status. Pt reporting nausea, no meds given, fell asleep with relaxation and had positive effect. Will continue to monitor. PLAN MOVING FORWARD: Control nausea. Advance diet as tolerated. INDIVIDUALIZED FALL PREVENTION INTERVENTIONS: lighting adjusted for task, supervised activity, roomnear unit station, slipper socks on when ambulating, bed/chair alarm. Patient-specific fall risk factors per assessment: [current deficits]: Pt uses walker at home, baseline weakness Assistance [level of assistance required for transfers and ambulation]: Walker and 1-2 person assist Supervision [direct monitoring required during toileting and ADLs]: Hands on Surveillance [continuous indirect monitoring]: Purposeful rounding, bed/chair alarm, call dukes within reach, bed in lowest position. Patient-specific fall prevention interventions for sensory deficits provided, if applicable: none CPG GOAL OUTCOME EVALUATION: Goal: Individualization and Mutuality Outcome: Ongoing (Interventions Implemented as Appropriate) 01/25/16 1300 Mutuality/Individual Preferences What anxieties, fears or concerns do you have about your health or care? being back so soon What questions do you have about your health or care? none What information would help us give you more personalized care? none Goal: Fall Prevention-Safe Patient Handling Outcome: Ongoing (Interventions Implemented as Appropriate) 01/25/16 1300 01/25/16 1400 [place] Fall Risk History of Falling -- 25 Secondary Diagnosis -- 15 Ambulatory Aids -- 15 Intravenous Therapy/Heparin/Saline Lock -- 20 Gait/Transferring -- 10 Mental Status -- 15 Score -- 100 Activity and Safety Assistive Device Front wheel walker -- OTHER [place] Fall Risk -- High Safety Interventions Safety Precautions/Fall Reduction -- bed alarm;chair alarm;fall reduction program maintained;environmental modification;lighting adjusted for task/safety;muscle strengthening facilitated;room near unit station;supervised activity Musculoskeletal Interventions Activity/Level of Assistance with walker;with 1-person assist -- Positioning independent -- Goal: Infection Control Outcome: Ongoing (Interventions Implemented as Appropriate) 01/25/16 1300 01/25/16 1400 Safety Interventions Isolation Precautions -- standard precautions maintained Infection Prevention -- blood glucose management;bronchial hygiene promoted;environmental surveillance;hydration promoted;nutrition promoted;promote handwashing;rest/sleep promoted Coping/Psychosocial Response Interventions Counseling calming techniques promoted;emotional support provided;goal setting facilitated;guided imagery facilitated;verbalization of feelings encouraged;relaxation techniques promoted;reassurance provided;understanding of situation facilitated -- Goal: Discharge Needs Assessment 01/25/16 1300 01/25/16 1733 Discharge Needs Assessment Concerns to be Addressed -- no discharge needs identified Readmission Within the Last 30 Days -- clinical decline Equipment Needed After Discharge -- none Current Health Anticipated Changes Related to Illness -- none Living Environment Transportation Available -- car;family or friend will provide Self-Care Equipment Currently Used at Home walker, standard -- documented in this encounter Plan of Treatment Upcoming Encounters Date Type Department Care Team (Late st Contact Info) Description 02/19/2025 9:00 AM EDT TH Visit (TeleHealth) [place] [id number] Wyatt Higgins MD [facility] [place] [address] documented as of this encounter Procedures Procedure Name Priority Date/Time Associated Diagnosis Comments POCT GLUCOSE Routine 01/27/2016 11:01 AM EDT POCT GLUCOSE Routine 01/27/2016 7:01 AM EDT POCT GLUCOSE Routine 01/27/2016 3:59 AM EDT POCT GLUCOSE Routine 01/26/2016 11:48 PM EDT POCT GLUCOSE Routine 01/26/2016 6:52 PM EDT POCT GLUCOSE Routine 01/26/2016 4:14 PM EDT POCT GLUCOSE Routine 01/26/2016 11:07 AM EDT XR FLUORO BARIUM SWALLOW (SINGLE CONTRAST) Routine 01/26/2016 10:18 AM EDT POCT GLUCOSE Routine 01/26/2016 6:56 AM EDT POCT GLUCOSE Routine 01/26/2016 4:39 AM EDT POCT GLUCOSE Routine 01/25/2016 11:27 PM EDT POCT GLUCOSE Routine 01/25/2016 7:06 PM EDT POCT GLUCOSE Routine 01/25/2016 5:13 PM EDT HEMOGRAM Routine 01/25/2016 2:49 PM EDT DIFFERENTIAL, AUTOMATED Routine 01/25/2016 2:49 PM EDT CREATININE Routine 01/25/2016 2:49 PM EDT CBC (WITH DIFF) Routine 01/25/2016 2:49 PM EDT BUN Routine 01/25/2016 2:49 PM EDT GLUCOSE, FASTING Routine 01/25/2016 2:49 PM EDT ELECTROLYTES PANEL Routine 01/25/2016 2: 49 PM EDT documented in this encounter Results * (ABNORMAL) POCT Glucose (01/27/2016 11:01 AM EDT) POC Glucose 217(H) 65 - 199 mg/dL [facility] Comment: Supplemental ranges: <140 mg/dL before meals <180 mg/dL all other times of the day Blood specimen (specimen) 01/27/2016 11:01 AM EDT 01/27/2016 11:01 AM EDT Jose Mai MD POINT OF CARE TEST ORDERABLES [facility] [place] [address] * POCT Glucose (01/27/2016 7:01 AM EDT) POC Glucose 194 65 - 199 mg/dL [facility] Comment: Supplemental ranges: <140 mg/dL before meals <180 mg/dL all other times of the day Blood specimen (specimen) 01/27/2016 7:01 AM EDT 01/27/2016 7:01 AM EDT Jose Mai MD POINT OF CARE TEST ORDERABLES [facility] [place] [address] * (ABNORMAL) POCT Glucose (01/27/2016 3:59 AM EDT) POC Glucose 202(H) 65 - 199 mg/dL [facility] Comment: Supplemental ranges: <140 mg/dL before meals <180 mg/dL all other times of the day Blood specimen (specimen) 01/27/2016 3:59 AM EDT 01/27/2016 3:59 AM EDT Jose Mai MD POINT OF CARE TEST ORDERABLES [facility] [place] [address] * POCT Glucose (01/26/2016 11:48 PM EDT) POC Glucose 190 65 - 199 mg/dL [facility] Comment: Supplemental ranges: <140 mg/dL before meals <180 mg/dL all other times of the day Blood specimen (specimen) 01/26/2016 11:48 PM EDT 01/26/2016 11:48 PM EDT Jose Mai MD POINT OF CARE TEST ORDERABLES [facility] [place] [address] * POCT Glucose (01/26/2016 6:52 PM EDT) POC Glucose 181 65 - 199 mg/dL [facility] Comment: Supplemental ranges: <140 mg/dL before meals <180 mg/dL all other times of the day Blood specimen (specimen) 01/26/2016 6:52 PM EDT 01/26/2016 6:52 PM EDT Jose Mai MD POINT OF CARE TEST ORDERABLES [facility] [place] [address] * POCT Glucose (01/26/2016 4:14 PM EDT) POC Glucose 176 65 - 199 mg/dL [facility] Comment: Supplemental ranges: <140 mg/dL before meals <180 mg/dL all other times of the day Blood specimen (specimen) 01/26/2016 4:14 PM EDT 01/26/2016 4:14 PM EDT Jose Mai MD POINT OF CARE TEST ORDERABLES [facility] [place] [address] * (ABNORMAL) POCT Glucose (01/26/2016 11:07 AM EDT) POC Glucose 202(H) 65 - 199 mg/dL [facility] Comment: Supplemental ranges: <140 mg/dL before meals <180 mg/dL all other times of the day Blood specimen (specimen) 01/26/2016 11:07 AM EDT 01/26/2016 11:07 AM EDT Jose Mai MD POINT OF CARE TEST ORDERABLES [facility] 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 1. No evidence of contrast extravasation to suggest a leak. 2. No obstruction to the passage of contrast. Normal appearing gastric pouch and small bowel. Patent gastrojejunal and jejunojejunal anastomoses. No delay in emptying of the esophagus or gastric pouch. No dilated bowel to suggest obstruction. I have personally reviewed the image(s) and the residents interpretation and agree with the findings, Jo Castillo at 01/26/2016 6:33 PM Narrative 01/26/2016 6:33 PM EDT EXAMINATION: XR FLUORO BARIUM SWALLOW CLINICAL HISTORY: s/p RNYGB with 2 day hx of N/V. Please assess for leak. TECHNIQUE: Initial senior network engineer radiograph of the chest and abdomen was performed. A limited single contrast esophagram was performed under pulsed intermittent fluoroscopy. Imaging was obtained in the standing AP, LPO and RPO positions. Omnipaque 300 was initially administered in the standing AP, LPO and RPO positions. There is no evidence of a leak on these images, therefore thin barium was then administered in the standing AP, LPO and RPO positions. Fluoroscopy time: 1 minute and 19 seconds COMPARISON: CT of the abdomen dated 01/24/2016, acute abdominal series dated 01/24/2016 FINDINGS: Initial senior network engineer radiograph and senior network engineer images demonstrated residual contrast within the visualized ascending, transverse and descending colon, likely residual from CT of the abdomen from 01/24/2016. Suture lines and surgical clips are visualized overlying the left upper and mid abdomen. The visualized lungs are clear. Postsurgical changes following Reinaldo-en-Y gastric bypass surgery are visualized. Contrast passed without difficulty through the esophagus into the gastric pouch, through the patent gastro-jejunal anastomosis into the jejunum. Contrast also flows easily through a patent jejunojejunal anastomosis into distal small bowel. No delay in emptying of the esophagus or gastric pouch was evident. No extravasation of contrast was visualized to suggest a leak. Procedure Note Jo Castillo MD - 01/26/2016 EXAMINATION: XR FLUORO BARIUM SWALLOW CLINICAL HISTORY: s/p RNYGB with 2 day hx of N/V. Please assess forleak. TECHNIQUE: Initial senior network engineer radiograph of the chest and abdomen wasperformed. A limited single contrast esophagram was performed under pulsedintermittent fluoroscopy. Imaging was obtained in the standing AP, LPO and RPOpositions. Omnipaque 300 was initially administered in the standing AP, LPO and RPO positions. There is no evidence of a leak on these images, therefore thinbarium was then administered in the standing AP, LPO and RPO positions. Fluoroscopy time: 1 minute and 19 seconds COMPARISON: CT of the abdomen dated 01/24/2016, acute abdominal seriesdated 01/24/2016 FINDINGS: Initial senior network engineer radiograph and senior network engineer images demonstrated residual contrastwithin the visualized ascending, transverse and descending colon, likely residualfrom CT of the abdomen from 01/24/2016. Suture lines and surgical clips arevisualized overlying the left upper and mid abdomen. The visualized lungs areclear. Postsurgical changes following Reinaldo-en-Y gastric bypass surgery arevisualized. Contrast passed without difficulty through the esophagus into the gastricpouch, through the patent gastro-jejunal anastomosis into the jejunum. Contrastalso flows easily through a patent jejunojejunal anastomosis into distal smallbowel. No delay in emptying of the esophagus or gastric pouch was evident. No extravasation of contrast was visualized to suggest a leak. 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 1. No evidence of contrast extravasation to suggest a leak. 2. No obstruction to the passage of contrast. Normal appearing gastricpouch and small bowel. Patent gastrojejunal and jejunojejunal anastomoses. No delayin emptying of the esophagus or gastric pouch. No dilated bowel to suggest obstruction. I have personally reviewed the image(s) and the residents interpretationand agree with the findings, Jo Castillo at 01/26/2016 6:33 PM Jose Mai MD IMG FLUORO ORDERABL ES * POCT Glucose (01/26/2016 6:56 AM EDT) POC Glucose 172 65 - 199 mg/dL [facility] Comment: Supplemental ranges: <140 mg/dL before meals <180 mg/dL all other times of the day Blood specimen (specimen) 01/26/2016 6:56 AM EDT 01/26/2016 6:56 AM EDT Jose Mai MD POINT OF CARE TEST ORDERABLES [facility] [place] [address] * POCT Glucose (01/26/2016 4:39 AM EDT) POC Glucose 185 65 - 199 mg/dL [facility] Comment: Supplemental ranges: <140 mg/dL before meals <180 mg/dL all other times of the day Blood specimen (specimen) 01/26/2016 4:39 AM EDT 01/26/2016 4:39 AM EDT Jose Mai MD POINT OF CARE TEST ORDERABLES [facility] [place] [address] * (ABNORMAL) POCT Glucose (01/25/2016 11:27 PM EDT) POC Glucose 203(H) 65 - 199 mg/dL [facility] Comment: Supplemental ranges: <140 mg/dL before meals <180 mg/dL all other times of the day Blood specimen (specimen) 01/25/2016 11:27 PM EDT 01/25/2016 11:27 PM EDT Jose Mai MD POINT OF CARE TEST ORDERABLES Performing Organization Address City/[facility] Co de Phone Number [facility] [place] [address] * POCT Glucose (01/25/2016 7:06 PM EDT) POC Glucose 170 65 - 199 mg/dL [facility] Comment: Supplemental ranges: <140 mg/dL before meals <180 mg/dL all other times of the day Blood specimen (specimen) 01/25/2016 7:06 PM EDT 01/25/2016 7:06 PM EDT Jose Mai MD POINT OF CARE TEST ORDERABLES Performing Organization Address [facility] Co de Phone Number [facility] [place] [address] * POCT Glucose (01/25/2016 5:13 PM EDT) POC Glucose 179 65 - 199 mg/dL [facility] Comment: Supplemental ranges: <140 mg/dL before meals <180 mg/dL all other times of the day Blood specimen (specimen) 01/25/2016 5:13 PM EDT 01/25/2016 5:13 PM EDT Jose Mai MD POINT OF CARE TEST ORDERABLES Performing Organization Address City/[facility] Co de Phone Number [facility] [place] [address] * Differential, Automated (01/25/2016 2:49 PM EDT) Neutrophils % 67.3 % [facility] Neutr Abs (ANC) 5.81 1.50 - 6.30 x10(3)/mcL [facility] Lymphocytes % 23.9 % [facility] Lymphocytes Abs 2.1 1.0 - 3.6 x10(3)/[facility] LABORATORY Monocytes % 7.3 % [facility] Monocyte Abs 0.6 0.2 - 1.0 x10(3)/[facility] LABORATORY Eosinophils % 0.7 % [facility] Eosinophils Abs 0.1 0.0 - 0.5 x10(3)/[facility] LABORATORY Basophils % 0.6 % [facility] Basophils Abs 0.0 0.0 - 0.2 x10(3)/[facility] LABORATORY Immature Gran % 0.20 % [facility] Comment: Immature granulocytes(IG's)percentage and absolute count will include metamyelocytes, myelocytes, and promyelocytes. Blood smears from CBCs yielding IG's will be scanned manually for concordance. If this scan disagrees with the automated IG or if promyelocytes are noted, a manual differential will be performed. Zahra Gran Abs 0.02 0.00 - 0.05 x10(3)/[facility] LABORATORY Blood specimen (specimen) 01/25/2016 2:49 PM EDT 01/25/2016 2:59 PM EDT Narrative Resulting Agency Comment Spec In Lab Jose Mai MD HEMATOLOGY ORDERABL ES [facility] [place] [address] * (ABNORMAL) Hemogram (01/25/2016 2:49 PM EDT) WBC 8.6 4.0 - 10.0 x10(3)/[facility] LABORATORY RBC 5.10 3.93 - 5.22 x10(6)/[facility] LABORATORY Hemoglobin 13.5 11.2 - 15.7 gm/dL [facility] Hematocrit 41.1 34.0 - 45.0 % [facility] MCV 80.6 79.0 - 94.[address] [facility] MCH 26.5(L) 26.6 - 32.[address] [facility] MCHC 32.8 32.0 - 36.5 gm/dL [facility] Platelets 204 145 - 370 x10(3)/[facility] RDWSD 44.5 35.0 - 46.[address] [facility] RDWCV 15.3(H) 10.9 - 14.4 % [facility] MPV 11.5 9.0 - 12.[address] [facility] Blood specimen (specimen) 01/25/2016 2:49 PM EDT 01/25/2016 2:59 PM EDT Narrative Resulting Agency Comment Spec In Lab Jose Mai MD HEMATOLOGY ORDERABL ES [facility] [place] [address] * (ABNORMAL) Glucose, fasting (01/25/2016 2:49 PM EDT) Glucose Fasting 218(H) 65 - 99 mg/dL [facility] Comment: ?Fasting* Glucose Interpretive Criteria Normal ?65-99 mg/dL Impaired Fasting glucose ?100-125 mg/dL Consistent with Diabetes Mellitus ? >or= 126 mg/dL *Fasting is defined as no caloric intake for at least 8 hours In the absence of unequivocal hyperglycemia a plasma glucose value of >or= 126 mg/dL should be repeated on a subsequent day. Diagnosis and Classification of Diabetes Mellitus, Position Statement from the [place] [employer]. ??Diabetes Care, Volume 33, Supplement 1, Oct 2009 Blood specimen (specimen) 01/25/2016 2:49 PM EDT 01/25/2016 2:59 PM EDT Narrative Resulting Agency Comment Spec In Lab Jose Mai MD CHEMISTRY ORDERABLE S Performing Organization Address [facility] Co de Phone Number [facility] [place] [address] * (ABNORMAL) Creatinine (01/25/2016 2:49 PM EDT) Creatinine 0.41(L) 0.70 - 1.20 mg/dL [facility] Comment: Please note that the pediatric reference intervals supplied above were not validated at [facility]. Results from pediatric patients should be interpreted in conjunction to the patient's age, height and muscle mass. Estimated GFR >60 >=60 [facility] Comment: This estimated GFR [...] the following links into your internet browser. [email or web address] Blood specimen (specimen) 01/25/2016 2:49 PM EDT 01/25/2016 2:59 PM EDT Narrative Resulting Agency Comment Spec In Lab Jose Mai MD CHEMISTRY ORDERABLE S Performing Organization Address [facility] Co de Phone Number [facility] [place] [address] * (ABNORMAL) BUN (01/25/2016 2:49 PM EDT) BUN 2(L) 8 - 18 mg/dL [facility] Blood specimen (specimen) 01/25/2016 2:49 PM EDT 01/25/2016 2:59 PM EDT Narrative Resulting Agency Comment Spec In Lab Jose Mai MD CHEMISTRY ORDERABLE S Performing Organization Address [facility] Co de Phone Number [facility] [place] [address] * (ABNORMAL) Electrolytes panel (01/25/2016 2:49 PM EDT) Sodium 137 135 - 145 mmol/L [facility] Potassium 3.8 3.5 - 5.0 mmol/L [facility] Comment: Please note: ??Patients with WBC >100,000 may have falsely elevated Potassium levels. ??For accurate Potassium quantification in these patients send serum separator tube (gold top) for subsequent determinations. ??Contact the Clinical Chemistry Laboratory if there are any questions. Chloride 99 98 - 107 mmol/L [facility] CO2 20(L) 22 - 31 mmol/L [facility] Anion Gap 18(H) 5 - 15 mmol/L [facility] Blood specimen (specimen) 01/25/2016 2:49 PM EDT 01/25/2016 2:59 PM EDT Narrative Resulting Agency Comment Spec In Lab Jose Mai MD CHEMISTRY ORDERABLE S Performing Organization Address [facility] Co de Phone Number [facility] [place] [address] documented in this encounter Visit Diagnoses Diagnosis Nausea and vomiting in adult patient Nausea with vomiting documented in this encounter Admitting Diagnoses Diagnosis Nausea and vomiting in adult patient Nausea with vomiting documented in this encounter Administered Medications Inactive Administered Medications - up to 3 most recent administrations Medication Order MAR Action Action Date Dose Rate Site barium sulfate (EZPAQUE) oral suspension 50 mL 50 mL, Oral, ONCE, 1 dose, On Mon01/26/16 at 1045, Routine Given 01/26/2016 10:23 AM EDT 50 mLs enoxaparin (LOVENOX) injection 40 mg 40 mg, Subcutaneous, DAILY, First dose on Mon01/25/16 at 1700, Until Discontinued, Routine Given 01/27/2016 8:05 AM EDT 40 mg Given 01/26/2016 8:26 AM EDT 40 mg Ab dominal Tissue Given 01/25/2016 5:14 PM EDT 40 mg glipiZIDE (GLUCOTROL XL) CR tablet 10 mg 10 mg, Oral, 2 TIMES DAILY BEFORE BREAKFAST DINNER, First dose on Mon01/27/16 at 0745, Until Discontinued, DO NOT CRUSH OR OPEN, STAT Given 01/27/2016 8:05 AM EDT 10 mg insulin aspart (NovoLOG) VIAL injection 1-4 Units 1-4 Units, Subcutaneous, EVERY 4 HOURS SCHEDULED, First dose on Mon01/25/16 at 1600, Until Discontinued, CORRECTION BOLUS Sensitive to insulin [...] give no insulin and resume prior schedule. Given 01/27/2016 11:57 AM EDT 3 Units Given 01/27/2016 8:05 AM EDT 2 Units Given 01/27/2016 4:30 AM EDT 3 Units iohexol (OMNIPAQUE) 300 mg/mL solution 50 mL 50 mL, Oral, ONCE, 1 dose, On Mon01/26/16 at 1045, Routine Given 01/26/2016 10:22 AM EDT 50 mLs lactated ringers infusion 125 mL/hr, Intravenous, CONTINUOUS, Starting on Mon01/25/16 at 1500, Until Mon01/27/16 at 0704, Recovery (Recovery-Hospital Unit) New Bag 01/27/2016 6:04 AM EDT 125 mL/hr 125 mL /hr New Bag 01/26/2016 9:57 PM EDT 125 mL/hr 125 mL/hr New Bag 01/26/2016 2:02 PM EDT 125 mL/hr 125 mL/hr levothyroxine (SYNTHROID) tablet 25 mcg 25 mcg, Oral, EVERY MORNING, First dose on Mon01/26/16 at 0600, Until Discontinued, Routine Given 01/27/2016 5:43 AM EDT 25 mcg Given 01/26/2016 5:03 AM EDT 25 mcg lidocaine (LIDODERM) 5 % patch 1 patch 1 patch, Transdermal, DAILY, First dose on Mon01/25/16 at 1700, Until Discontinued, Apply patch(es) for 12 hours, and then remove for 12 hours, Routine Patch Applied 01/26/2016 8:00 PM EDT 1 patch 20-Other (document i n comment section) Patch Applied 01/25/2016 5:14 PM EDT 1 patch 20-Other (document in comment section) LORazepam (ATIVAN) injection 0.5 mg 0.5 mg, Intravenous, EVERY 4 HOURS PRN, Starting on Mon01/25/16 at 1501, Until Mon01/27/16 at 1510, Anxiety, Nausea, Vomiting, Routine Given 01/27/2016 12:32 PM EDT 0.5 mg Given 01/27/2016 2:41 AM EDT 0.5 mg Given 01/26/2016 8:18 PM EDT 0.5 mg ondansetron (ZOFRAN) injection 4 mg 4 mg, Intravenous, EVERY 8 HOURS PRN, Starting on Mon01/25/16 at 2036, Until Mon01/27/16 at 1510, Nausea, Use oral ondansetron first. Given 01/27/2016 1:30 AM EDT 4 mg Given 01/26/2016 9:01 AM EDT 4 mg Given 01/25/2016 8:44 PM EDT 4 mg ondansetron (ZOFRAN-ODT) oral disintegrating tablet 4 mg 4 mg, Oral, EVERY 8 HOURS PRN, Starting on Mon01/26/16 at 1344, Until Mon01/27/16 at 1510, Nausea, Attempt this one prior to IV administration. May use 4mg of IV if no relief within 30 minutes., Routine Given 01/26/2016 5:13 PM EDT 4 mg pantoprazole (PROTONIX) injection 40 mg 40 mg, Intravenous, DAILY, First dose on Mon01/25/16 at 1445, Until Discontinued, Reconstitute with 10 mL of normal saline to a concentration of 4 mg/mL and infuse slowly over 2 minutes., Routine Given 01/27/2016 8:05 AM EDT 40 mg Given 01/26/2016 8:20 AM EDT 40 mg Given 01/25/2016 3:05 PM EDT 40 mg sodium chloride 0.9 % flush 5 mL 5 mL, Intravenous, 2 TIMES DAILY, First dose on Mon01/25/16 at 2100, Until Discontinued, Recovery (Recovery-Hospital Unit), Routine Given 01/27/2016 8:06 AM EDT 5 mLs Given 01/26/2016 8:01 PM EDT 5 mLs Given 01/26/2016 8:20 AM EDT 5 mLs documented in this encounter Active and Recently Administered Medications Times are shown in EDT. Scheduled Medication Order 01/25/2016 01/26/2016 01/27/2016 barium sulfate (EZPAQUE) oral suspension 50 mL (COMPLETED) 50 mL, Oral, ONCE, 1 dose, On Mon01/26/16 at 1045, Routine 1023 (Given - Provider: Phylicia Patel)1045 (Canceled Entry - Provider: Ilsa Christie RN - Reason: See comment - Comment: see prior admin) enoxaparin (LOVENOX) injection 40 mg (CANCELED) 40 mg, Subcutaneous, DAILY, First dose on Mon01/25/16 at 1700, Until Discontinued, Routine 171 (Given - Provider: Johanne Cesar) 08 (Given - Provider: Nany Sibley RN) 08 (Given - Provider: Margi Romero, BRENDAN) glipiZIDE (GLUCOTROL XL) CR tablet 10 mg (CANCELED) 10 mg, Oral, 2 TIMES DAILY BEFORE BREAKFAST DINNER, First dose on Mon01/27/16 at 0745, Until Discontinued, DO NOT CRUSH OR OPEN, STAT 0805 (Given - Provider: Margi Romero, BRENDAN) insulin aspart (NovoLOG) VIAL injection 1-4 Units (CANCELED)(Linked Group 1) 1-4 Units, Subcutaneous, EVERY 4 HOURS SCHEDULED, First dose on Mon01/25/16 at 1600, Until Discontinued, CORRECTION BOLUS Sensitive to insulin [...] give no insulin and resume prior schedule. 171 (Given - Provider: Johanne Cesar)2027 (Given - Provider: Paul Callejas RN)2330 (Given - Provider: Paul Callejas RN) 0442 (Given - Provider: Paul Callejas RN)0802 (Given - Provider: Nany Sibley RN)1211 (Given - Provider: Ilsa Christie RN)1712 (Given - Provider: Ilsa Christie, BRENDAN)195 (Given - Provider: Paul Callejas RN)2358 (Given - Provider: Paul Callejas RN) 0430 (Given - Provider: Paul Callejas RN)0805 (Given - Provider: Margi Romero, BRENDAN)1157 (Given - Provider: Margi Romero RN) iohexol (OMNIPAQUE) 300 mg/mL solution 50 mL (COMPLETED) 50 mL, Oral, ONCE, 1 dose, On Mon01/26/16 at 1045, Routine 1022 (Given - Provider: Phylicia Patel)1045 (Canceled Entry - Provider: Ilsa Christie RN - Reason: See comment - Comment: see prior admin) levothyroxine (SYNTHROID) tablet 25 mcg (CANCELED) 25 mcg, Oral, EVERY MORNING, First dose on Mon01/26/16 at 0600, Until Discontinued, Routine 0503 (Given - Provider: Paul Callejas RN) 0543 (Given - Provider: Paul Callejas RN) lidocaine (LIDODERM) 5 % patch 1 patch (CANCELED)(Linked Group 2) 1 patch, Transdermal, DAILY, First dose on Mon01/25/16 at 1700, Until Discontinued, Apply patch(es) for 12 hours, and then remove for 12 hours, Routine 1714 (Patch Applied - Provider: Johanne Cesar - Comment: lle) 1999 (Patch Applied - Provider: Paul Callejas RN - Comment: Dorsum of L/R feet) pantoprazole (PROTONIX) injection 40 mg (CANCELED) 40 mg, Intravenous, DAILY, First dose on Mon01/25/16 at 1445, Until Discontinued, Reconstitute with 10 mL of normal saline to a concentration of 4 mg/mL and infuse slowly over 2 minutes., Routine 1505 (Given - Provider: Johanne Cesar) 0820 (Given - Provider: Nany Sibley, RN) 0805 (Given - Provider: Margi Romero, BRENDAN) sodium chloride 0.9 % flush 5 mL (CANCELED) 5 mL, Intravenous, 2 TIMES DAILY, First dose on Mon01/25/16 at 2100, Until Discontinued, Recovery (Recovery-Hospital Unit), Routine 2032 (Given - Provider: Paul Callejas RN) 0820 (Given - Provider: Nany Sibley RN)2000 (Given - Provider: Paul Callejas RN) 0806 (Given - Provider: Margi Romero, RN) Continuous Medication Order 01/25/2016 01/26/2016 01/27/2016 lactated ringers infusion (CANCELED) 125 mL/hr, Intravenous, CONTINUOUS, Starting on Mon01/25/16 at 1500, Until Mon01/27/16 at 0704, Recovery (Recovery-Hospital Unit) 1505 (New Bag - Provider: Johanne Cesar)2222 (New Bag - Provider: Paul Callejas RN) 1402 (New Bag - Provider: Ilsa Christie RN)2157 (New Bag - Provider: Paul Callejas, BRENDAN) 0604 (New Bag - Provider: Paul Callejas, BRENDAN)0819 (Stopped - Provider: Margi Romero, BRENDAN) PRN Medication Order 01/25/2016 01/26/2016 01/27/2016 LORazepam (ATIVAN) injection 0.5 mg (CANCELED) 0.5 mg, Intravenous, EVERY 4 HOURS PRN, Starting on Mon01/25/16 at 1501, Until Mon01/27/16 at 1510, Anxiety, Nausea, Vomiting, Routine 1851 (Given - Provider: Johanne Cesar)2329 (Given - Provider: Paul Callejas RN) 0819 (Given - Provider: Nany Sibley RN)2018 (Given - Provider: Destiny Zuniga RN) 0241 (Given - Provider: Destiny Zuniga, BRENDAN)1232 (Given - Provider: Mragi Romero, BRENDAN) ondansetron (ZOFRAN) injection 4 mg (CANCELED) 4 mg, Intravenous, EVERY 8 HOURS PRN, Starting on Mon01/25/16 at 2036, Until Mon01/27/16 at 1510, Nausea, Use oral ondansetron first. 2043 (Given - Provider: Paul Callejas, BRENDAN) 900 (Given - Provider: Ilsa Christie, BRENDAN) 013 (Given - Provider: Paul Callejas, BRENDAN) ondansetron (ZOFRAN-ODT) oral disintegrating tablet 4 mg 4 mg, Oral, EVERY 8 HOURS PRN, Starting on Mon01/26/16 at 1344, Until Mon01/27/16 at 1510, Nausea, Attempt this one prior to IV administration. May use 4mg of IV if no relief within 30 minutes., Routine 1712 (Given - Provider: Ilsa Christie, BRENDAN) 012 (Not Given - Provider: Paul Callejas RN - Reason: Patient/family refused - Comment: I want the shot, the pill doesn't work.) Linked Groups Order Group 1: POCT Fingerstick Glucose (CANCELED) Routine, EVERY 4 HOURS, First occurrence on Mon01/25/16 at 1600, Until Specified, Consider choosing EVERY 4 HOURS as frequency for: - Type 1 Diabetes - At least 24 hours after coming off an insulin drip - At least 24 hours after admission for DKA - Hypoglycemia unawareness - Patients who are otherwise unstable Select the same frequency for the correction bolus insulin order And insulin aspart (NovoLOG) VIAL injection 1-4 Units (CANCELED)Jump to med 1-4 Units, Subcutaneous, EVERY 4 HOURS SCHEDULED, First dose on Mon01/25/16 at 1600, Until Discontinued, CORRECTION BOLUS Sensitive to insulin [...] Group 2: lidocaine (LIDODERM) 5 % patch 1 patch (CANCELED)Jump to med 1 patch, Transdermal, DAILY, First dose on Mon01/25/16 at 1700, Until Discontinued, Apply patch(es) for 12 hours, and then remove for 12 hours, Routine And lidocaine (LIDODERM) 5 %(700 mg/patch) Patch Verification (CANCELED) Transdermal, 2 TIMES DAILY, First dose on Mon01/26/16 at 0900, Until Discontinued, Verify lidocaine 5 %(700 mg/patch) patch. And lidocaine (LIDODERM) 5 %(700 mg/patch) Patch Removal (CANCELED) Transdermal, NIGHTLY, First dose on Mon01/25/16 at 2100, Until Discontinued, Remove lidocaine 5 %(700 mg/patch) patch documented in this encounter Care Teams Manager Intensive Care Relationship Specialty Start Date End Date Nanda Oh MD [facility] [address] [place] [address] PCP - General 09/14/10 06/06/18 documented as of this encounter
--- OUTSIDE RECORDS SUMMARY | 2024-05-15 11:12 | XMS_ITS | Encounter Summary ---
Author Organization [facility] [place] [address] [place] [address] Care Team Providers Care Customer Quality Specialist Name Role Phone Nanda Read MD Primary Care Provider [phone] Encounter Details Date Type Department Care Team (Late st Contact Info) Description 12/02/2015 External Results [place] [id number] Provider, Scanning Social History Tobacco Use Types Packs/Day Years [...] AM EDT TH Visit (TeleHealth) [place] [phone] Wyatt Higgins MD [facility] [address] NEUROLOGY DEPT. [place], [place] [id number] documented as of this encounter Procedures Procedure Name Priority Date/Time Associated Diagnosis Comments MAMMOGRAM SCAN Routine 11/11/2015 documented in this encounter Results * Scan Doc: Mammogram (11/11/2015) Anatomical Region Laterality Modality Other Scanning Provider MEDIA MGR SCAN EXT O RDR/RSLT documented in this encounter Visit Diagnoses Not on filedocumented in this encounter Care Teams Customer Quality Specialist Relationship Specialty Start Date End Date Nanda Read MD [facility] [address] [place] [address] PCP - General 09/14/10 06/06/18 documented as of this encounter
--- OUTSIDE RECORDS SUMMARY | 2024-05-15 11:12 | XMS_ITS | Encounter Summary ---
Author Organization [facility] [place] [address] Care Team Providers Care Behavioral Psychologist Name Role Phone Nanda Read MD Primary Care Provider [phone] Reason for Visit * Reason Comments Patient Education Bariatric Surgery Pr ogram preoperative class Encounter Details Date Type Department Care Team (Late st Contact Info) Description 12/17/2015 12:30 PM EST Office [place] [address] Cathy Dillon, SENIOR MANAGING DIRECTOR [facility] [place] [address] Morbid obesity, unspecified obesity type [E66.01]; 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 Lift when you feel comfortable. ??? For all patients: Do not drive for 2 weeks. After [...] be crushed. Check with your pharmacist first. BLOOD CLOT PREVENTION: ?? You do not meet scoring criteria to be discharged on medication to prevent blood clots. Be active, walk at least 4 times a day and do blood clot prevention exercises in your handbook on page 82. ULCER PREVENTION: omeprazole 20 mg daily must be taken for 3 MONTHS after surgery: Take this to prevent ulcers, even if you do not have heartburn. The prescription may be refilled after the [...] 2 hours after meals and if unwell. For blood sugar less than 150, do not restart diabetes medications. ??? If you see the diabetes team during your hospital stay, follow their diabetes care recommendations ??? For patients on insulin and oral diabetic medications: If blood sugar is consistently under 200, you will not likely need medication. If blood sugar is over 200 on a few rechecks, call your primary care doctor or diabetic specialist for specific recommendations or as recommended at discharge. ??? Follow up with primary care provider or environmental safety specialist in 1-2 weeks. Bring meter to [...] TAKE DIURETICS (MEDICATION FOR SWELLING WATER PILLS): HOLD FUROSEMIDE ??? Check with your surgical team prior to discharge for instructions. In general, this medication can be decreased or stopped after surgery, since it may cause dehydration. ??? Monitor closely for increased swelling after discharge, and call your primary care doctor if swelling increases. VITAMIN AND MINERAL SUPPLEMENTATION: Vitamin B12 500 [...] and 24 months, then yearly for life. documented in this encounter Progress Notes * Taylor Vance - 12/17/2015 1:55 PM EST Martha attended a comprehensive two hour pre-operative class today, which included discussion of preand post operative instructions included in the [facility] Bariat[facility] [place] [facility] Education Handbook. One hour of today's group visit was spent in review of dietary and post op vitamin and mineral supplementation. Some of the topics reviewed today included: ??? pre-operative and post-operative dietary recommendations ??? post-op vitamin and mineral supplementation Martha appeared to have a good understanding of the information presented, and asked appropriate questions. All her questions were answered. * Cathy Dillon - 12/16/2015 9:00 PM EST Martha attended a comprehensive two hour pre-operative class today, which included discussion of preand post operative instructions included in the [facility] Bariatric Surgery [facility] Education Handbook. The one hour nutrition component of the class was taught by the BSP RD. OR date: 01/04/[address] Mai Individualized plan of care: ?? Inpatient endocrine consult for diabetes management ?? Consider pain consult given chronic narcotic use ?? Close blood pressure and glucose monitoring post discharge ?? Hold furosemide post discharge Recommendations for post discharge VTE prophylaxis (unless change in condition during hospitalization that would contraindicate treatment): Post discharge enoxaparin not indicated Prescription x1 provided at today's visit: (faxed to pharmacy) 1. Ursodiol 300 mg BID x 6 months, to start at 2 weeks post-operatively for cholelithiasis prevention She will continue Omeprazole 20 mg once daily x 3 months, to start upon discharge for ulcer prevention. May be refilled if symptomatic. OTC Vitamin and mineral supplements required post discharge: ?? Multivitamin with minerals twice daily ?? Vitamin B12 500 mcg by mouth once daily ?? Calcium citrate 600 mg with Vitamin D 400 units twice daily ?? Iron with Vitamin C, 50-66 mg once daily (take iron with vitamin C 550 mg to help with absorption) for patients with iron deficiency, anemia or menstruating females Bariatric Surgery Program Pathway and review of status with the requirements of the Bariatric Surgery Program 1. Education: She previously attended a Introduction to the [facility] Bariatric Surgery Program seminar, a two hour meeting that provides a program overview as well as expectations. The [facility] Bariatric Surgery Program Educational seminar requirement (3 seminars with post-testing) has been met. The BSP Educational Handbook was provided at visit #1. 2. Pre-operative programmatic evaluations have been done, as noted in previous pathway review. 3. Bariatric Surgery Program evaluations with RD and FUSELAGE FRAMER have taken place, as noted in previous pathway documentation 4. Weight requirements have been achieved and documented. 5. All pre-operative requirements were achieved. 6. Surgical consultation has taken place, and she has been approved to proceed with surgery by surgeon and insurer. Next steps in pathway: ?? During hospitalization for bariatric surgery, a standard bariatric surgery order set is followed. ?? Routine post-operative follow up with labwork is done at months 1,4,12,18 and 24, yearly thereafter, and PRN. High risk patients are followed more frequently. Some of the topics reviewed during group discussion today included: ?? day of surgery and post-op routine care/ locations: Admissions/SDP/PACU/4/3/2 [place] units ?? medications that increase the risk of bleeding including NSAIDS, ASA and Plavix to be avoided per guidelines pre and post-operatively ?? DVT/VTE prevention and signs of DVT/PE. ?? Inpatient management for VTE prevention: venodynes, ambulation, Enoxaparin 40 units BID during inpatient stay. ?? Indications for extended Enoxaparin 10 days post discharge: A. patients with BMI >60 or prior VTE OR B. 2 or more of the following: age >50, BMI >50, male gender, sleep apnea, varicose veins, venous insufficiency, history of oral contraceptive or hormone or post-menopausal hormone replacement use within 30 days of surgery, and recent smoking ?? guidelines for patients on Coumadin per prescribing physician or Anticoagulation Clinic ?? diabetes and hypertension monitoring post-operatively ?? signs and symptoms of infection as well as emergency signs and symptoms ?? common post-operative complaints ?? management of sleep apnea during hospitalization and post operatively. The importance of post-operative follow-up with Sleep Center after weight loss was stressed. ?? recommendations for psychiatric medications: should continue uninterrupted after surgery ?? activity post surgery/ return to work recommendations ?? pre-operative and post-operative dietary recommendations ?? post-op vitamin and mineral supplementation ?? routine BSP post-operative follow-up: 3 weeks. 4, 12,18, 24 months and yearly for LIFE ?? routine Primary Care post-operative follow up: at 10-14 days after surgery to monitor chronic health problems such as diabetes and hypertension, since the requirement for antihypertensive and diabetic medications may decrease or be discontinued A preliminary copy of the discharge instructions was provided, which is also available in the patient handbook. Martha appeared to have a good understanding of the information presented, and asked appropriate questions. All her questions were answered. Time spent in individual counseling and coordination of care: 5 minutes Time spent in group counselin minutes documented in this encounter Plan of Treatment Upcoming Encounters Date Type Department Care Team (Late st Contact Info) Description 02/19/2025 9:00 AM EDT TH Visit (TeleHealth) [place] [address] Wyatt Higgins MD [facility] 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
--- OUTSIDE RECORDS SUMMARY | 2024-05-15 11:12 | XMS_ITS | Encounter Summary ---
Author Organization [facility] [place] [address] Care Team Providers Care Director Corporate Compliance Name Role Phone Nanda Read MD Primary Care Provider Encounter Details Date Type Department Care Team (Late st Contact Info) Description 11/13/2015 Orders [place] [phone] Cathy Dillon APRN [facility] [place] [address] Social History Tobacco Use Types Packs/Day Years [...] AM EDT TH Visit (TeleHealth) [place] [phone] Wyatt Higgins MD [facility] [place] [address] documented as of this encounter Visit Diagnoses Not on filedocumented in this encounter Care Teams Director Corporate Compliance Relationship Specialty Start Date End Date Nanda Read MD [facility] [address] [place] [address] PCP - General 09/14/10 06/06/18 documented as of this encounter
--- OUTSIDE RECORDS SUMMARY | 2024-05-15 11:12 | XMS_ITS | Encounter Summary ---
[place] [address] Care Team Providers Care Director Of Dance Name Role Phone Nanda Read MD Primary Care Provider Reason for Visit * Reason Onset Date Comments Other 12/03/2015 Encounter Details Date Type Department Care Team (Late st Contact Info) Description 12/03/2015 Telephone [place] [phone] [address] Other Social History Tobacco Use Types Packs/Day [...] * Telephone Encounter - Taylor Vance - 12/03/2015 11:08 AM EST Bariatric Surgery Program Called patient to follow up on vitamin and supplement compliance. Martha reports taking a Flintstones MVI twice daily, B12, Iron, Potassium, Folic Acid, and Vitamin Ddaily. She aligns the bottle up in her bedroom to help remind her to take them. Recommend patient start Calcium Citrate, reviewed the dosing recommendations with her. Martah plans to look for a calcium citrate chewable to start taking. Patient is now ready to be scheduled for surgery, will contact surgical orderly. documented in this encounter Plan of Treatment Upcoming Encounters Date Type Department Care Team (Late st Contact Info) Description 02/19/2025 9:00 AM EDT TH Visit (TeleHealth) [place] [address] Wyatt Higgins MD [facility] [place] [address] documented as of this encounter Visit Diagnoses Not on filedocumented in this encounter Care Teams Director Of Dance Relationship Specialty Start Date End Date Nanda Read MD [facility] [address] [place] [address] PCP - General 09/14/10 06/06/18 documented as of this encounter
--- OUTSIDE RECORDS SUMMARY | 2024-05-15 11:12 | XMS_ITS | Encounter Summary ---
[place] [address] Care Team Providers Care Welder Fitter Apprentice Name Role Phone Nanda Read MD Primary Care Provider [phone] Encounter Details Date Type Department Care Team (Late st Contact Info) Description 01/13/2016 Telephone [place] [phone] Nany Calderon RN Social History Tobacco Use [...] Telephone Encounter - Nany Calderon RN - 01/13/2016 1:49 PM EDT Attempted to reach Martha for bariatric surgery post-op call. Message left on her voicemail. documented in this encounter Plan of Treatment Upcoming Encounters Date Type Department Care Team (Late st Contact Info) Description 02/19/2025 9:00 AM EDT TH Visit (TeleHealth) [place] [address] Wyatt Higgins MD [facility] [place] [address] documented as of this encounter Visit Diagnoses Not on filedocumented in this encounter Care Teams Welder Fitter Apprentice Relationship Specialty Start Date End Date Nanda Read MD [facility] [address] [place] [address] PCP - General 09/14/10 06/06/18 documented as of this encounter
--- OUTSIDE RECORDS SUMMARY | 2024-05-15 11:12 | XMS_ITS | Encounter Summary ---
Author Organization [facility] [place] [address] Care Team Providers Care Television Repair Teacher Name Role Phone Nanda Read MD Primary Care Provider [phone] Encounter Details Date Type Department Care Team (Late st Contact Info) Description 11/17/2015 1:00 PM EST Office [place] [address] Marlena Ramos, OT [facility]YSICAL [facility] & [place] [address] Chronic foot pain, unspecified laterality; Morbid obesity with BMI of 40.0-44.9, adult Social History Tobacco Use Types Packs/Day Years [...] as of this encounter Progress Notes * Marlena Ramos, OT - 11/17/2015 3:14 PM EST Occupational Therapy Pre-operative Bariatric Surgery Evaluation Patient profile: Martha Benoit is a 49 y.o. female patient of Cathy Dillon APRN, seen today for pre op bariatric surgery evaluation. No past medical history on file. Past [...] GI ENDOSCOPY performed by ALISA RICHARDS at [facility] ENDOSCOPY ??? Pro upper gi endoscopy, biopsy 11/16/2011 EGD WITH BIOPSY performed by ALISA RICHARDS at [facility] ENDOSCOPY ??? Tubal ligation ??? Cystoscopy Left 01/15/1995 stent placement ??? Lithotripsy Left 12/26/2000 ??? Cystoscopy Left 04/03/2001 ??? Cystoscopy Left 08/26/2001 ??? Cystoscopy Left 10/31/2000 ??? Heel spur surgery Left ??? Pro upper gi endoscopy, diagnostic N/A 11/04/2015 EGD, UPPER GI ENDOSCOPY performed by Kisha Doss MD at [facility] ENDOSCOPY Social History: Patient lives with her young son and 17 year old daughter. Home Setup: ramp to enter, 1 level; handicap accessible bathroom DME: 4WW, shower seat, grab bars in bathroom Baseline ADL/Mobility: Pt is disabled from her diabetic peripheral neuropathy. She is independent with ADL and mobility using a 4WW. Pt can walk for ~20 min before needing seated rest break. She drives, does the grocery shopping, and cooking. Reports no falls since she started using the 4WW. She enjoys cleaning and knitting. Subjective: I have these calluses on my feet, I use bag balm on them and they've started to heal. Objective: Seen today for pre-operative OT evaluation with PT. Pt's son, Doni was also present. Vision & Perception: WFL, pt does wear reading glasses Range of motion, strength, coordination: Bilateral UEs are within functional limitations B LE's: B foot drop Sensation: peripheral neuropathy from knees down, describes it as painful. Does endorse tingling inher fingers at times. Activities of Daily Living: Upper and lower body dressing and bathing: ?? Independently doffed and donned socks and shoes by pulling LE's up onto mat [facility] AM-PAC 6 Clicks Daily Activity Inpatient Short Form How much help from another person does the patient currently need... Total (1) A Lot (2) A Little (3) None (4) 1. Putting on and taking off regular lower body clothing? X 2. Bathing (including washing, rinsing, drying)? X 3. Toileting, which includes using toilet, bedpan or urinal? X 4. Putting on and taking off regular upper body clothing? X 5. Taking care of personal grooming such as brushing teeth? X 6. Eating meals? X Raw Score: 24 Standardized Score: 57.54 CMS 0-100% Score: 0% CMS Modifier: CH Functional Mobility: Supine to sit: independent with log roll, reports she occasionally sleeps in her recliner chair at home Sit to stand: independent Ambulation: modified independent with 4WW Stand to sit: independent Sit to supine: independent with log roll Balance: good with walker. IADL???s: Assistance available to patient. Endurance: per report pt is limited to ~20 min of activity prior to fatiguing. Pain: Chronic BLE pain. Informed Consent: The patient agrees to and understands the OT treatment plan and goals. Education: patient educated on role of occupational therapy/rehabilitation, transfers, functional mobility, activity pacing/energy conservation, home management/modifications, expectations after surgery (including self-care during hospitalization), benefits of activity for strengthening and endurance, use of adaptive equipment for ADLs, and safety. Assessment: Pt seen for pre op bariatric surgery assessment. Pt educated on expectations after surgery, home modifications, energy conservation, home safety in general. Eval Date: 11/17/2015 G-Code: Self-Care Status Modifier CURRENT CH - 0 percent impaired, limited or restricted PROJECTED CH - 0 percent impaired, limited or restricted DISCHARGE CH - 0 percent impaired, limited or restricted G Code Rationale: This G-Code and these disability modifiers were selected as the primary therapy goal based upon the patient's evaluation including the following functional test(s) [facility] 6 Clicks Daily Activity Form. Current ability measures, co-morbidities and clinical judgement were also used to select the disability modifier. This Patient's current G-Code functional level is 0% impaired based upon 6 clicks. Total time spent with patient: 25 minutes for evaluation Total timed interventions: 0 minutes Pager: [phone] MARLENA RAMOS OT 11/17/2015 Occupational Therapy Rehabilitation Department documented in this encounter Plan of Treatment Upcoming Encounters Date Type Department Care Team (Late st Contact Info) Description 02/19/2025 9:00 AM EDT TH Visit (TeleHealth) [place] [address] Wyatt Higgins MD [facility] [place] [address] documented as of this encounter Visit Diagnoses Diagnosis Chronic foot pain, unspecified laterality Morbid obesity with BMI of 40.0-44.9, adult Morbid obesity documented in this encounter Care Teams Television Repair Teacher Relationship Specialty Start Date End Date Nanda Read MD [facility] [address] [place] [address] PCP - General 09/14/10 06/06/18 documented as of this encounter
--- OUTSIDE RECORDS SUMMARY | 2024-05-15 11:12 | XMS_ITS | Encounter Summary ---
Author Organization [facility] [place] [address] Care Team Providers Care Caponizer Name Role Phone Nanda Read MD Primary Care Provider Reason for Visit * Reason Onset Date Comments Follow-up 11/12/2015 Encounter Details Date Type Department Care Team (Late st Contact Info) Description 11/12/2015 Telephone [place] [address] Cathy Dillon, [facility] [place] [address] Follow-up Social History Tobacco Use Types Packs/Day [...] * Telephone Encounter - Cathy Dillon - 11/12/2015 6:02 PM EST Bariatric Surgery Program Martha was contacted to follow up on her recent lab results, showing iron and vitamin D deficienciesand worsening diabetes control. She reports that she did not purchase a pill box as recommended because she doesn't think that will work for her. She doesn't understand why she is iron deficient. Shewas advised that taking vitamin and mineral supplementation is critical after surgery and non-compliance places her at risk for deficiencies. I advised her to pick up man the supplements that were calledin to her pharmacy. documented in this encounter Plan of Treatment Upcoming Encounters Date Type Department Care Team (Late st Contact Info) Description 02/19/2025 9:00 AM EDT TH Visit (TeleHealth) [place] [address] Wyatt Higgins MD [facility] [place] [address] documented as of this encounter Visit Diagnoses Not on filedocumented in this encounter Care Teams Caponizer Relationship Specialty Start Date End Date Nanda Read MD [facility] [address] [place] [address] PCP - General 09/14/10 06/06/18 documented as of this encounter
--- OUTSIDE RECORDS SUMMARY | 2024-05-15 11:12 | XMS_ITS | Encounter Summary ---
[place] [address] Care Team Providers Care Honing Machine Set Up Operator Name Role Phone Nanda Read MD Primary Care Provider [phone] Encounter Details Date Type Department Care Team (Late st Contact Info) Description 12/23/2015 Telephone [place] [address] Chlesea Andrews LPN Social History Tobacco Use Types Packs/Day [...] encounter Miscellaneous Notes * Telephone Encounter - Chelsea Andrews LPN - 12/23/2015 11:26 AM EST Spoke with Dr. Vinson re patients earlier call with concerns of chronic yeast infection of skinand recurrent vaginal yeast infections, aware patient had stopped Invokana 4 days ago and has seen a major improvement in her skin. Patient having gastric bypass surgery 01/04/16 he does not want her skin effected at the time of surgery. Her BS readings for the past few days have been 120's to 61 this morning , she is on a strict diet in preparation for the bypass surgery. Per Dr. Vinson patient to discontinue Invokana and remain on remaining medications for diabetes. Called patient aware of this. She also questions if she should stop her levothyroxine. Patient advised to remain on this until she is seen in clinic again and discuss at that time. documented in this encounter Plan of Treatment Upcoming Encounters Date Type Department Care Team (Late st Contact Info) Description 02/19/2025 9:00 AM EDT TH Visit (TeleHealth) [place] [address] Wyatt Higgins MD [facility] [place] [address] documented as of this encounter Visit Diagnoses Not on filedocumented in this encounter Care Teams Honing Machine Set Up Operator Relationship Specialty Start Date End Date Nanda Read MD [facility] [address] [place] [address] PCP - General 09/14/10 06/06/18 documented as of this encounter
--- OUTSIDE RECORDS SUMMARY | 2024-05-15 11:12 | XMS_ITS | Encounter Summary ---
Author Organization [facility] [place] [address] Care Team Providers Care Card Checker Name Role Phone Nanda Read MD Primary Care Provider [phone] Reason for Visit * Reason Comments Morbid Obesity Bariatric Surgery Pr ogram preoperative visit #2 Encounter Details Date Type Department Care Team (Latest Contact Info) Description 11/17/2015 9:00 AM EST Office [place] [address] Cathy Dillon, SIZE WORKER [facility] [place] [address] Gastroesophageal reflux disease, esophagitis presence not specified; Morbid obesity, unspecified obesity type; Type 2 diabetes mellitus with diabetic neuropathy Social History Tobacco Use Types Packs/Day [...] Sign Reading Time Taken Comments Blood Pressure 143/59 11/17/2015 8:52 AM EST Pulse 95 11/17/2015 8:52 AM EST Temperature 36.7 ??C (98.1 ??F) 11/17/2015 8:52 AM ES T Respiratory Rate 18 11/17/2015 8:52 AM EST Oxygen Saturation 98% 11/17/2015 8:52 AM EST Inhaled Oxygen Concentration - - Weight 113 kg (249 lb 1.6 oz) 11/17/2015 8:52 AM EST Height 160 cm (5' 3) 11/17/2015 8:52 AM EST Body Mass Index 44.13 11/17/2015 8:52 AM EST documented in this encounter Patient Instructions * Patient Instructions* WilmaCathy - 11/17/2015 9:56 AM EST BARIATRIC SURGERY PROGRAM SECOND VISIT Contact information: [facility] Admin coordinator Rosey: [phone] Dietitian: [phone] Surgeons/ nurse practitioner: [phone] Nurse line: [phone] 1. Pending information: evidence of compliance to medications, including vitamin and mineral supplements over the next 2 weeks. 2. Ongoing weight loss is encouraged. There is a no weight gain policy between visits. The surgeon may opt to delay your surgery if you gain weight between visits. 3. Bring the Educational Handbook to the surgeon's visit. 4. After your surgical consultation, all pertinent information will be faxed to your insurer for approval, which can take a few weeks. Your surgery date and pre-operative class will be scheduled. This may change if insurance approval is delayed Prepare for the Pre-op Class by doing the followin. Review the program handbook and come to class with a list of questions. 2. Watch the educational videos including Psychological Implications of bariatric surgery on the [facility] website under Bariatric Surgery ([email or web address]) 3. Come prepared to the class to discuss meal planning. 4. Bring your supplements 5. Come with tips and suggestions that my be helpful to others. Questions for your doctor, specialist or pharmacist: 5. Ask your doctor about medication suggestions if you currently take medications that are largerthan the size of a tylenol. Large pills need to be crushed (if permitted by the drug lasting machine operator) or taken in liquid form for TWO WEEKS after surgery. Diabetic oral medication often does not need hans taken after surgery) ?? If you take antinflammatory medications or steroid medicationsfor arthritis or asthma, please check with your doctor. These medications will likely need to be held 1 week prior to and at least a few weeks after surgery. Bariatric surgery apps- [facility] facebook page: [email or web address] documented in this encounter Progress Notes * Taylor Vance - 11/17/2015 7:56 AM EST BARIATRIC SURGERY PROGRAM NUTRITION EDUCATION 2nd Pre-Operative Visit Shared Medical Appointment Martha Benoit attended a 2 hour shared medical appointment today for her second pre-operative visitwith the Bariatric Surgery Program dietitian and nurse practitioner. Ms. Benoit is a morbidly obese female who has been referred for nutrition evaluation and diet instruction in anticipation of bariatric surgery. Previous conservative attempts at weight loss through dieting have been unsuccessful over the superintendent terminal. Advised patient that bariatric surgery is a weight loss tool not a solution; and ultimately weight loss will be achieved through proper eating and exercise habits. She was given suggestions for how to incorporate dietary and lifestyle changes into her daily schedule. Patient was given a copy of theprogram handbook at the initial appointment which includes specific information on all nutritional recommendations and guidelines. She was also given contact information for further nutritional questions. Ms. Benoit showed good understanding of the concepts discussed. Nutrition Topics Covered at Today's Appointment: ?? Pre-operative Surgical Diet ?? Purpose of diet ?? Appropriate foods ?? Protein goals ?? Carbohydrate goals ?? Calorie goals ?? Keeping a food log ?? Hydration and Appropriate Beverages ?? Post-Operative Diets (Stages I-IV) ?? Importance of following diet stages ?? Appropriate foods ?? Sample Menus ?? Vitamin/Mineral Supplementation ?? Common Food Intolerances ?? Dumping Syndrome ?? Sugar Alcohols ?? Physical Activity The appointment consisted of 60 minutes of group education and counseling. * Cathy Dillon - 11/17/2015 7:31 AM EST Reason for visit: Martha is a 49 y.o. year-old female who presents for review of progress since initial visit, and discussion of risks and benefits of bariatric surgery. Her nephew accompanies her to today's visit. Ms. Benoit's bariatric procedure of choice: RNY gastric bypass History of present illness: see notes from 11/03/15. BARIATRIC SURGERY PROGRAM PATHWAY Review of progress with the requirements of the Bariatric Surgery Program: 1. Education: He has attended a Introduction to the [facility] Bariatric Surgery Program seminar, a comprehensive two hour meeting that provides a program overview, education on bariatric surgeries offered at [facility], risks and benefits, as well as patient expectations and follow up, in 08/05/14. [facility] BSP Educational seminars viewed: 3. Grades on post-testin-100%. The BSP Educational Handbook is provided at preoperative visit #1. 2. Pre-operative programmatic evaluations required: PCP evaluation and letter of support to proceedwith surgery, BSP labwork (can be done on day of visit #1) and psychological evaluation- minimum of2 visits. 3. Bariatric Surgery Program evaluations with RD and HAND SURGEON: 11/03/15 and 11/17/15. 4. Weight history: 198 pounds on 08/25/04, 207 pounds on 03/20/09, 249 pounds on 07/01/14, 253 pounds on 02/20/15. HT: 63. WT at visit #1: 247 pounds. WT at visit #2: 249 pounds. 5. Gallbladder status: intact, not studied 6. Insurer specific requirements: [place] medicaid- 3 months of supervised counseling 7. BSP Team meeting discussion: previously- 09/30/10, recommended sleeve at that time due to need for surveillance of antrum 8. Next steps in pathway: ?? Since all BSP requirements and testing have been completed: surgical consultation has been scheduled with ?? Following surgical consultation, if approved to proceed to surgery by surgeon and insurer: an operative date and Pre-operative Education Class, a 2 hour class taught by the Bariatric HAND SURGEON and RD will be scheduled ?? During hospitalization for bariatric surgery, a standard bariatric surgery order set is followed. ?? Routine post-operative follow up with labwork is done at months 1,4,12,18 and 24, yearly thereafter, and PRN. High risk patients are followed more frequently. Problem List ??? Preoperative Class IV obesity BMI 43.7 ??? Denies hypertension, prescribed lisinipril 2.5 mg , likely for renal protection ??? Type 2 diabetes diagnosed in 1993, [...] have chocolate than glucose tabs) C. Complications: retinopathy, peripheral autonomic neuropathy, sees hydraulic lift operator for calluses, declines flu shot ??? GERD and hiatal hernia: asymptomatic, no current treatment A. EGD done [...] No H. pylori-like microorganism is seen. ??? Hyperlipidemia treated with pravastatin ??? Lower extremity edema, treated with lasix on 40 mg ~1 a week ??? Musculoskeletal issues: A. Chronic foot pain-s/p heel spur surgeries ??? 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 Diabetic retinopathy ??? Peripheral neuropathy-severe generalized ??? Acquired hypothyroidism ??? Vitamin D deficiency with PTH elevation (with normal calcium on 11/03/15), takes vitamin D 50,000 when she remembers, usually takes once a week ??? Iron deficiency ??? Low B12 level ??? Memory impairment, S/P evaluation by neurology [...] ideal compliance to medications and overall health care ??? Seborrheic keratosis ??? History of tubular adenomas 2013 History of chest pain A. Stress ECHO [...] Past Surgical History Procedure Laterality Date ??? Tubal ligation Bilateral 1987 ??? ESWL Left 1987 ??? ESWL Left 01/15/1995 ??? Cystoscopy and stent placement Left 04/03/2001, 08/26/2001, 10/31/2000 ??? Lithotripsy 12/26/2000 ??? LEEP 08/15/2009 ??? Colposcopy 04/08/2014 ??? Excision of heel spur Left 2004 ??? PRK for hyperopic astigmatism OU 2003 ??? Upper gi endoscopy, exam and biopsy 11/16/2011 UPPER GI ENDOSCOPY performed by ALISA RICHARDS at [facility] Anesthesia history (per patient): denies untoward events Screening/other: Date Evaluation Results 2014 Primary care 09/23/14 Colonoscopy 4 polyps ascending and descending colon, rectum- all tubular adenomas 03/24/15 Pap negative 08/07/14 Mammogram ACR category 1- advised to update - DEXA Recent diagnostic screening/ evaluations since initial visit: - EGD on 11/04/15 - Rehab medicine 11/17/15 - Endocrinology follow up 11/17/15 - Mammogram 2016 Changes to review of systems/ medications since initial visit: She has started to take lisinopril and vitamin D twic a week Overall changes to comorbidities are noted in Updated Problem list. Review of plans for post-operative support after discharge: sons and niece Exam: Blood pressure 143/59, pulse 95, temperature 36.7 ??C (98.1 ??F), temperature source Oral, resp. rate 18, height 160 cm (5' 3), weight 112.991 kg (249 lb 1.6 oz), last menstrual period 10/30/2015, SpO2 98 %. Discussion of bariatric surgeries performed at [facility], risks and benefits, and the [facility] Bariatric Surgery Program requirements: The risks of immediate and fci complications as well as the benefits of gastric bypass and sleeve gastrectomy surgeries, as outlined extensively in the Bariatric Surgery Program Handbook, whichis a >100 page document, were reviewed. She is aware that all bariatric surgeries are elective procedures. The mechanism by which gastric bypass and sleeve gastrectomy surgeries lead to weight loss was reviewed. The concept that bariatric surgery is a tool for weight loss and not a cure for obesity was again emphasized. The need for commitment to fci lifestyle changes, with healthy diet and regular physical activity was stressed to achieve and sustain fci weight loss. Benefits of bariatric surgery discussed: ?? estimated loss of 50% - 70% of excess body weight with gastric bypass and sleeve gastrectomy,with patients rarely achieving their ideal body weight, especially patients with BMIs >50. ?? improvement or resolution of weight related comorbidities such as obesity- related hypertension, sleep apnea, NAFLD/ LUCERO, esophageal reflux, restrictive lung disease and hyperlipidemia when anticipated weight loss is achieved. ?? Type 2 diabetes improvement occurs in the majority of patients shortly after gastric bypass and sleeve gastrectomy, often prior to discharge from the hospital, prior to any weight loss. Patients with >10 year history of diagnosis of type 2 diabetes often will need to remain on insulin fci ?? patients also generally feel better, with improvement in self-esteem and activity levels. Potential but rare risks of gastric bypass and sleeve gastrectomy discussed: ?? inability to perform the operation ?? <0.01%. ?? bleeding and splenic injury with the need for blood transfusion ?? heart and lung complications, including prolonged mechanical ventilation and possible tracheostomy ?? wound infection and seroma, rare in laparoscopic patients ?? DVT with fatal pulmonary emboli. Prophylactic measures used including Enoxaparin, sequential compression devices and early ambulation. Some patients are discharged on extended Enoxaparin therapy ?? rhabdomyolysis ?? nutritional deficiencies, including protein-calorie malnutrition, vitamins B12, B1, D, folate, iron deficiency and anemia. ?? gallstones, significantly decreased by prophylactic treatment with Ursodiol for 6 months post-operatively. ?? peripheral neuropathy related to chronic poor nutrition or B vitamin deficiencies ?? transient telogen effluvium ?? patients weighing >350 pounds with increased risks related to radiology equipment weight limits, which may necessitate return to OR for evaluation Risks specific to gastric bypass discussed: ?? anastomotic leakage with the development of peritonitis and abscess, potentially leading to sepsis, renal failure and . ?? anastomotic stricture ?? Lifetime risk of anastomotic ulcer, increased with NSAID use ?? lifetime risk of small bowel obstruction ?? lifetime risk of internal and incisional hernias. Risk of incisional hernia rare in laparoscopicsurgery. ?? potential risk for renal calculi, increased with chronic poor hydration and prior history of renal calculi Risks specific to laparoscopic sleeve gastrectomy discussed: ?? leak at the staple line with the development of peritonitis and abscess, potentially leading to sepsis, renal failure and . The rate of leak after sleeve at [facility] is 0%. ?? stricture of gastric remnant with need for dilatation ?? prolonged nausea and vomiting ?? Worsening of GERD Potential secondary effects of bariatric surgeries discussed: ?? weight regain/ poor weight loss influenced by eating behaviors and lack of a regular exercise program. Drinking high calorie liquids, frequent snacking or ingestion of large amounts of soft foods will cause weight gain . ?? dumping syndrome ?? Lactose intolerance ?? sagging skin in any area, such as the face, torso and extremities following weight loss. Body contouring surgery may not be a covered benefit by the individual's insurer, and is associated with scarring, risk of infection etc. Patients are advised that if unable to accept the possibility of skinredundancy following weight loss, then they should not proceed with bariatric surgery. Bariatric surgery is done for health reasons, not to improve physical appearance. ?? transfer of addictions or symptom substitution behavior. When food is no longer available to secure a sense of comfort and/or relieve stress, some may turn to alcohol or illicit substances, while others may turn to excessive shopping, gambling or other indiscretions. Martha was advised that bariatric surgery would likely be ineffective for those who: ?? receive a great deal of satisfaction from eating ?? have active eating disorders including binge eating disorder and bulimia ?? are in the midst of serious personal or unstable psychiatric problems Other information discussed: For females of child-bearing age: avoidance of for at least 12-18 months post-operatively. Use of contraception is recommended. Bariatric Surgery Follow up for LIFE: ?? 3 weeks, 4, 8, 12,18 and 24 months, yearly thereafter. More frequent follow up done as clinically indicated. Labwork: done at all routine visits except 1 month post op Post-operative support group meetings: held on the first Monday of every month. All patients are encouraged to attend. Vitamin and mineral supplementation for LIFE: ?? B12 500 mcg sublingual daily, calcium citrate 500-600 mg with vitamin D 400- 500 mg BID, multivitamins with minerals twice a day. Iron in the form of ferrous fumarate or carbonyl iron is taken with vitamin C once a day for menstruating females or those with iron deficiency or anemia. She appeared to have a good understanding of the information presented at today's meeting, and seems to have reasonable and realistic expectations of bariatric surgery. She previously signed an agreement stating that She is willing to comply with instructions, lifetime vitamin and mineral supplements and programmatic follow up. Assessment/ Plan: 49 y.o. year old female with Class III obesity with established obesity-related chronic disease with end-organ damage. Currently, bariatric surgery is the best treatment available for morbid obesity,providing the only mechanism for reproducible, effective, and sustained weight loss. Ms.. Benoit is interested in a laparoscopic approach to bariatric surgery, and meets BSP requirements. She is aware that conversion to an open procedure is possible. ?? Of concern is her chronic poor compliance to overall health care and medications. She reports that she has made an effort to take medications as prescribed. She reports that she is using the same system of tracking medications by lining the medications up in a drawer. She is not interested in using a pill box. She has been advised that non-compliance with post surgery supplements places her atrisk for vitamin and mineral deficiencies post surgery. Surgery scheduling will be held for 2 weeksto assess her ability to take the recommended supplements. ?? Her Bariatric Surgery VTE Risk Assessment score, as determined at visit #1 is 1, which indicatesthat enoxaparin 40 mg SQ BID is recommended during inpatient stay only Ms. Benoit has met the requirements of the [facility] B[place] Surgery [place], and has an appointment today for surgical consultation. She was encouraged to call with any questions or concerns. Data reviewed: Visit #2 questionnaire Information reviewed with patient: 1. [facility] Bariatric Surgery Program Educational Handbook, bariatric surgery patient agreement and risks and benefits of gastric bypass and sleeve gastrectomy reviewed in detail. Pending/ other: - She will be contacted in 2 weeks to assess vitamin and mineral compliance, and if has been able to comply with supplements, she will be scheduled for surgery - Copy of recent mammogram - CBC and CMP within 3 months of surgery, per [facility] accredited bariatric center guidelines (if surgery done after 02/02/16) - Ongoing weight loss encouraged Time spent in counseling: Individual planning and coordination of care: 5 minutes Group counselin minutes Questions regarding [facility] Bariatric Surgery Program patients: please call Denny Dillon APRN at [phone] or [phone]. documented in this encounter Miscellaneous Notes * Advance Care Plan Note - Cathy Dillon - 11/26/2015 8:16 PM EST Martha brought a copy of her AD to today's visit, which were sent for scanning documented in this encounter Plan of Treatment Upcoming Encounters Date Type Department Care Team (Late st Contact Info) Description 02/19/2025 9:00 AM EDT TH Visit (TeleHealth) [place] [address] Wyatt Higgins MD [facility] [place] [address] documented as of this encounter Visit Diagnoses Diagnosis Gastroesophageal reflux disease, esophagitis presence not specified Morbid obesity, unspecified obesity type Type 2 diabetes mellitus with diabetic neuropathy Type II or unspecified type diabetes mellitus with neurological manifestations, not stated as uncontrolled documented in this encounter Care Teams Card Checker Relationship Specialty Start Date End Date Nanda Read MD [facility] Carlos [address] [place] [address] PCP - General 09/14/10 06/06/18 documented as of this encounter
--- OUTSIDE RECORDS SUMMARY | 2024-05-15 11:12 | XMS_ITS | Encounter Summary ---
Author Organization [facility] Address [facility] [place] [address] Care Team Providers Care Shoe Salesperson Name Role Phone Nanda Read MD Primary Care Provider [phone] Encounter Details Date Type Department Care Team (Late st Contact Info) Description 11/11/2015 - 11/11/2015 11:59 PM EST Hospital Encounter [place] [address] [address] Alexis Temporary Pain Discharge Disposition: Home [...] the skin every 12 hours as needed. ergocalciferol (VITAMIN D) 50,000 unit Capsule Take 1 capsule by mouth twice a week for 48 doses. 24 capsule 1 11/09/2015 04/22/2016 ferrous sulfate 325 mg (65 mg iron) TabletIndications:Ir on deficiency Take 1 tablet by mouth daily for 180 days. Take with vitamin C 500 mg to improve absorption 90 tablet 1 11/08/2015 05/06/2016 Cyanocobalamin 1,000 mcg Tablet, Sublingual Place 1 tablet under the tongue daily. 90 tablet 3 11/08/2015 07/05/2016 INVOKANA 100 mg Tablet TAKE ONE TABLET BY MOUTH EVERY DAY 30 tablet 11 06/22/2015 12/23/2015 exenatide microspheres (BYDUREON) 2 mg/0.65 mL Pen Injector Inject 2 mg subcutaneously every 7 days. 4 each 11 03/10/2015 11/17/2015 gabapentin (NEURONTIN) 300 mg Capsule Take 600 mg by mouth daily. 01/06/2016 pravastatin (PRAVACHOL) 20 mg Tablet Take 20 mg by mouth daily. Reported on 04/27/2017 06/05/2017 levothyroxine (SYNTHROID) 25 mcg tablet TAKE 1 TABLET BY MOUTH DAILY 90 tablet 4 05/22/2014 02/06/2017 BD INSULIN SYRINGE ULT-FINE II 1 mL 31 x 16 Syrg USE WITH INSULIN TWO TIMES A DAY 100 Syringe 12 11/01/2013 02/18/2016 insulin regular CONCENTRATE U-500 (HUMULIN R U-500 CONCENTRATED) 500 unit/mL Soln Inject subcutaneously 0.1 mL twice daily. 20 vial 4 08/05/2013 01/06/2016 baclofen (LIORESAL) 10 mg tablet Take 10 mg by mouth 4 times daily. 03/08/2021 lisinopril (PRINIVIL;ZESTRIL) 2.5 mg tablet Take 2.5 mg by mouth daily. 12/23/2015 folic acid (FOLVITE) 1 mg tablet Take 1 mg by mouth daily. Reported on 04/06/2017 04/06/2017 furosemide (LASIX) 40 mg tablet Take 40 mg by mouth as needed. 01/06/2016 glipiZIDE (GLUCOTROL) 10 mg tablet Take 10 mg by mouth 2 times daily (before meals). 01/06/2016 metFORMIN (GLUCOPHAGE) 500 mg tablet Take 500 mg by mouth 2 times daily (with meals). 02/05/2019 OXYcodone-acetaminop hen (PERCOCET) 5-325 mg per tablet Take 1 tablet by mouth every 4 hours. 11/17/2015 POTASSIUM CHLORIDE (KLOR-CON 10 ORAL) Take 10 mEq by mouth 2 times daily. Reported on 04/06/2017 04/06/2017 Insulin Syringe-Needle U-100 (INSULIN SYRINGE) 1/2 mL 30 x 5/16 Syrg by Mis.(Non-Drug; Combo Route) route 2 times daily. Using with insulin bid 1 Box 4 06/03/2011 04/06/2017 documented as of this encounter Plan of Treatment Upcoming Encounters Date Type Department Care Team (Late st Contact Info) Description 02/19/2025 9:00 AM EDT TH Visit (TeleHealth) [place] [address] Wyatt Higgins MD [facility] [place] [address] documented as of this encounter Procedures Procedure Name Priority Date/Time Associated Diagnosis Comments FILM LIBRARY STORAGE ONLY MAMMO Routine 11/11/2015 12:00 AM EST Pain documented in this encounter Results * Film Library- Storage only Mammo (11/11/2015 12:00 AM EST) Narrative [facility] - 12/03/2015 1:24 PM EST See PACS [facility] result report. [facility] [place], [place] documented in this encounter Visit Diagnoses Diagnosis Pain Generalized pain documented in this encounter Care Teams Shoe Salesperson Relationship Specialty Start Date End Date Nanda Read MD KIRILL D [address] [place] [address] PCP - General 09/14/10 06/06/18 documented as of this encounter
--- OUTSIDE RECORDS SUMMARY | 2024-05-15 11:12 | XMS_ITS | Encounter Summary ---
Author Organization Formerly [facility] [place] [address] Care Team Providers Care Actuarial Consultant Name Role Phone Nanda Read MD Primary Care Provider Reason for Visit * Auth/Cert - Closed [...] Expiration Date Visits Re quested Visits Authorized [id number] Closed 1 1 Encounter Details Date Type Department Care Team (Late st Contact Info) Description 01/04/2016 12:22 PM EDT Anesthesia Event [place] [id number] Jonah Edge MD [facility] [place] [address] Tom Campos MD [facility] [place] [address] Anesthesia Record Procedure Summary Procedure Name Responsible Anesthesiologist Anesthesia Start Time Anesthesia Stop Time @LAPAROSCOPIC GASTROPLASTY W/ BRADY-EN-Y CONSTRUCTION (WRVU 29.4) (Abdomen) Jonah Edge MD 01/04/16 1222 01/04/16 1723 Events Date Time Event Comment 01/04/2016 1139 1222 Start 1225 AN Verify 1225 An Start Data 1230 An Induction 1233 An Intubation 1305 Anesthesia Ready 1315 Procedure Start 1609 an marques now 1712 Extubation/LMA Out 1723 Stop 1723 Handoff Intra-procedure anesthesia care was transferred after review of the patient's history, current anesthetic/surgical status and plan, according to the ANES Provider Handoff Checklist. Meds Name Total Midazolam 2 mg fentaNYL 200 mcg IV Lidocaine 40 mg Propofol 200 mg Rocuronium 130 mg PHENYLephrine 1,600 mcg Ondansetron 8 mg Neostigmine 5 mg Glycopyrrolate 0.6 mg Dexmedetomidine INF 195.81 mcg REMIfentanil INF 3.98 mg ceFAZolin 2 g enoxaparin (LOVENOX) injection 40 mg 40 mg Esmolol 100 mg meTOPROLOL 2.5 mg Lactated Ringers 1,450 mL Lactated Ringers 1,000 mL * Agents Name O2 Air N2O Sevoflurane (et) * Blood No blood administrations on file. Lines, Drains, and Airways Type Details Placement Removal Incision 01/04/16; abdomen; laparoscopic punctures (specify); multiple trocar sites. ; 01/27/16; 1304 01/04/16 0000 by Clarisse Garcia RN 01/27/16 1304 by Margi Romero RN (RETIRED) Peripheral IV Line - Single Lumen 01/04/16; 1200; basilic vein right (medial side of arm); 20 gauge; site symptomatic, catheter intact; 01/06/16; 0917 01/04/16 1200 by Benedicto Cameron RN 01/06/16 0917 by Abdiel Ennis RN (RETIRED) Peripheral IV Line - Single Lumen 01/04/16; 1225; median vein left (underside of arm); otyv-trx-alrixt catheter system; 18 gauge; [place]; 01/04/16; 200901/04/16 1225 by Tom Campos MD 01/04/162009 by Destiny Zuniga RN ETT Mask Ventilation: Ea sy (1); ETT Type: Cuffed, Oral; ETT Size: 7 mm; Mac Blade: 3; Exchange: Bougie; Attempts: 1; Laryngoscopy Grade: 1; ETT Placement Verified By: Auscultation, Capnometry; Secured at Teeth: 22 cm; Inserted by: Andres; Removal Date: 01/04/16; Removal Time: 171101/04/16 1305 by Tom Campos MD 01/04/16 171 by Tom Campos MD documented in this encounter Social History Tobacco [...] OR Notes * Anesthesia Postprocedure Evaluation - Tom Campos - 01/04/2016 5:30 PM EDT [facility] Department of Anesthesiology Post-procedure Note Patient: Martha Benoit Procedure Summary Date Anesthesia Start Anesthesia Stop Room / Location 01/04/16 1225 [facility] OR 26 / MH MAIN OR Procedure Diagnosis Surgeon Responsible Provider @LAPAROSCOPIC GASTROPLASTY, (N/A Abdomen); ENDOSCOPY, UPPER GI, DIAGNOSTIC, WITH OR WITHOUT SPECIMENS (N/A Esophagus) (OBESITY) Jose Mai MD Mancuso, Aaron J, MD All Anesthesia Providers: Anesthesiologist: Jonah Edge MD Direct Support Professional: Tom Campos MD Last (1hr) Vitals: BP Temp Pulse Resp SpO2 Patient Location: PACU/[facility] Level of Consciousness: Awake and Alert Pain Management: Satisfactory Analgesia PONV: None Cardiovascular Status: At Baseline and Hemodynamically Stable Respiratory Status: At Baseline and Room Air Postoperative Fluid Status: Intravascular EUvolemia Possible Anesthetic Complications: NONE apparent at time of evaluation Final Primary Anesthesia Type: General (The anesthetic type performed was the same as planned.) Comments: TOM CAMPOS MD * Anesthesia Preprocedure Evaluation - Jonah Edge MD - 01/02/2016 8:26 AM EST Pre-Anesthesia Evaluation for: Martha Benoit a 50 y.o. female. Procedure(s): @LAPAROSCOPIC GASTROPLASTY, ENDOSCOPY, UPPER GI, DIAGNOSTIC, WITH OR WITHOUT SPECIMENS Patient Active Problem List Diagnosis ??? DM renal manif type II, uncontrolled ??? Peripheral autonomic neuropathy due to diabetes mellitus ??? Obesity ??? Increased PTH level ??? Iron deficiency [...] Julio Cesar Wright suggested lumbar puncture in [place] -if high protein, may need IVIG therapy or try two days of high dose steroid therapy ??? Preoperative Class III obesity BMI 43 Bariatric Surgery Program 1. Attended Introduction to the [facility] Bariatric Surgery Program seminar, a comprehensive two hour meeting that provides a program overview, education on bariatric surgeries offered at [facility], silvino andelvia, as well as patient expectations and follow up: 08/05/14. [facility] BSP Educational seminars viewed: 3. Grades on post-testin-100%. The [facility] Educational Handbook is provided at preoperative visit #1. 2. Pre-operative programmatic evaluations required: PCP evaluation and letter of support to proceedwith surgery, [facility] labwork (can be done on day of visit #1) and psychological evaluation- minimum of2 visits. 3. Bariatric Surgery Program evaluations with RD and RESIDENTIAL COORDINATOR: 11/03/15 4. Weight history: 198 pounds on [...] ureteral stone extraction Jul - [facility] - [place] ??? Chronic foot pain-s/p heel spur surgeries ? ? Diabetic retinopathy & neuropathy +DM for 10+ years -on insulin since 2006, +severe diabetic neuropathy and mild retinopathy A1c 8.3%(02/19/10)<-8.8%(10/2009)<-8.1%(05/31)<-8.9%(04/30)<-10.4%(10/08/08) <-12.7(04/29)<-11.6%(12/28)<-10.6(06/29)<-9.7% (04/28) Normal c-peptide 3.3 -> 1.5 (4/30/10) icd 9 357.2 No past medical history [...] performed by ALISA RICHARDS at [facility] ENDOSCOPY ??? Pro upper gi endoscopy, biopsy 11/16/2011 EGD WITH BIOPSY performed by ALISA RICHARDS at [facility] ENDOSCOPY ??? Tubal ligation ??? Cystoscopy Left 01/15/1995 stent placement ??? Lithotripsy Left 12/26/2000 ??? Cystoscopy Left 04/03/2001 ??? Cystoscopy Left 08/26/2001 ??? Cystoscopy Left 10/31/2000 ??? Heel spur surgery Left ??? Pro upper gi endoscopy, diagnostic N/A 11/04/2015 EGD, UPPER GI ENDOSCOPY performed by Kisha Doss MD at [facility] ENDOSCOPY History Substance Use Topics ??? Smoking status: Never Smoker ??? Smokeless tobacco: Never Used ??? Alcohol Use: No History Drug Use No Allergies Allergen Reactions ??? Codeine Phosphate Nausea And Vomiting ??? Meperidine Medications: MAR and/or home medications have been reviewed. Physical Exam: There were no vitals filed for this visit. There is no weight on file to calculate BMI. Airway Assessment: Mallampati: I TM distance: >3 FB Neck ROM: full Cardiovascular Assessment: Pulmonary Assessment: Dental Assessment: - normal exam Misc Assessment: Anesthesia Plan: ASA 3 General, with a(n) intravenous induction Martha Benoit is a 50 y.o. female presenting for laparoscopic Brady-en-Y gastric bypass. The patient's past medical history, past surgical history, medications, and allergies were reviewedand notable for BM 47, DM2 HbA1c 8.5 in 10/2015 with severe neuropathy (including L toe and foot drop) and mild retinopathy on insulin since 2006, GERD, and history of small nephrolithiasis most recently 2000 with retained kidney function Cr 0.43. Patient's documented history was NEGATIVE for seizures, CVA, cardiac disease, pulmonary disease, hepatic disease, renal disease, and coagulopathy. There is no evidence of any recent URI symptoms, fevers/chills, or other signs of infection. Labs were reviewed and notable for 11/04/2015 BG 144, else CBC and CMP WNL Allergies: -- Codeine Phosphate -- Nausea And Vomiting -- Meperidine NPO Status: Appropriate Anesthetic History: No prior anesthetic issues reported. No available airway history. Anesthetic Plan: GA with ETT Standard ASA monitoring Adequate IV access Risks, benefits, and alternatives discussed with patient including but not limited to dental, airway, lip injury, vascular injury, nerve injury, thrombosis, eye injury, blindness, adverse drug reactions, heart attack, stroke, intraoperative demise among others. All questions answered to patients sat isfaction. Region - Other Informed Consent: Anesthetic plan and risks discussed with patient and healthcare power of city attorney. Use of blood products discussed with patient and healthcare power of city attorney whom consented to blood products. Plan discussed with attending and resident. PAT Staff Note documented in this encounter Miscellaneous Notes * Addendum Note - Tom Campos - 01/06/2016 6:14 AM EDT Addendum created 01/06/16613 by Tom Campos MD Modules edited: Anesthesia Events, Anesthesia Medication Administration documented in this encounter Plan of Treatment Upcoming Encounters Date Type Department Care Team (Late st Contact Info) Description 02/19/2025 9:00 AM EDT TH Visit (TeleHealth) [place] [address] Wyatt Higgins MD [facility] [place] [address] documented as of this encounter Visit Diagnoses Not on filedocumented in this encounter Administered Medications Inactive Administered Medications - up to 3 most recent administrations Medication Order MAR Action Action Date Dose Rate Site ceFAZolin (ANCEF) 1g in dextrose 5% 50mL PRN, Starting on 01/04/16 at 1305, Until Mon01/05/16 at 0809, Administer over 30 Minutes, Anesthesia Intra-op Given 01/04/2016 1:05 PM EDT 2 g dexmedetomidine (PRECEDEX) IV infusion (anesthesia) CONTINUOUS PRN, Starting on Mon01/04/16 at 1232, Until Mon01/05/16 at 0809, Anesthesia Intra-op, Routine Rate/Dose Change 01/04/2016 5:04 PM EDT 0.4 mcg/kg/hr 11.2 mL/hr Rate/Dose Change 01/04/2016 4:59 PM EDT 0.2 mcg/kg/hr 5.6 mL/hr Rate/Dose Change 01/04/2016 4:18 PM EDT 0.3 mcg/kg/hr 8.4 mL/hr enoxaparin (LOVENOX) injection 40 mg 40 mg, Subcutaneous, ONCE, 1 dose, On Mon01/04/16 at 1200, Please give in same day, Routine Given 01/04/2016 1:15 PM EDT 40 mg esmolol (BREVIBLOC) injection PRN, Starting on Mon01/04/16 at 1335, Until Mon01/05/16 at 0809, Anesthesia Intra-op, Routine Given 01/04/2016 2:43 PM EDT 10 mg Given 01/04/2016 2:34 PM EDT 20 mg Given 01/04/2016 2:24 PM EDT 20 mg fentaNYL 50 mcg/mL multi-dose injection PRN, Starting on Mon01/04/16 at 1230, Until Mon01/05/16 at 0809, Pain, Anesthesia Intra-op, Routine Given 01/04/2016 1:31 PM EDT 100 mcg Given 01/04/2016 12:30 PM EDT 100 mcg glycopyrrolate (ROBINUL) multi-dose injection PRN, Starting on Mon01/04/16 at 1649, Until Mon01/05/16 at 0809, Anesthesia Intra-op, Routine Given 01/04/2016 4:49 PM EDT 0.6 mg lactated ringers infusion CONTINUOUS PRN, Starting on Mon01/04/16 at 1225, Until Mon01/05/16 at 0809, Anesthesia Intra-op New Bag 01/04/2016 1:30 PM EDT New Bag 01/04/2016 12:25 PM EDT lactated ringers infusion CONTINUOUS PRN, Starting on Mon01/04/16 at 1242, Until Mon01/05/16 at 0809, Anesthesia Intra-op New Bag 01/04/2016 4:15 PM E DT New Bag 01/04/2016 12:42 PM EDT lidocaine (PF) (XYLOCAINE) 100 mg/5 mL (2 %) injection PRN, Starting on Mon01/04/16 at 1230, Until Mon01/05/16 at 0809, Anesthesia Intra-op, Routine Given 01/04/2016 12:30 PM EDT 40 mg meTOPROLOL (LOPRESSOR) injection PRN, Starting on Mon01/04/16 at 1449, Until Mon01/05/16 at 0809, High Blood Pressure, Anesthesia Intra-op, Routine Given 01/04/2016 2:49 PM EDT 2.5 mg midazolam (PF) (VERSED) 1 mg/mL multi-dose injection PRN, Starting on Mon01/04/16 at 1221, Until Mon01/06/16 at 0613, Sleep, Anesthesia Intra-op, Routine Given 01/04/2016 12:21 PM EDT 2 mg neostigmine (PROSTIGMINE) multi-dose injection PRN, Starting on Mon01/04/16 at 1649, Until Mon01/05/16 at 0809, Anesthesia Intra-op, Routine Given 01/04/2016 4:49 PM EDT 5 mg ondansetron (ZOFRAN) injection PRN, Starting on Mon01/04/16 at 1604, Until Mon01/05/16 at 0809, Nausea, Anesthesia Intra-op, Routine Given 01/04/2016 4:04 PM EDT 8 mg PHENYLephrine HCl in NS (PF) (KAILEY-SYNEPHRINE) 0.8 mg/10 mL (80 mcg/mL) multi-dose injection Syrg PRN, Starting on Mon01/04/16 at 1243, Until Mon01/05/16 at 0809, Anesthesia Intra-op, Routine Given 01/04/2016 4:29 PM EDT 80 mcg Given 01/04/2016 4:17 PM EDT 160 mcg Given 01/04/2016 4:06 PM EDT 160 mcg propofol (DIPRIVAN) 10 mg/mL bolus injection (Anesthesia) PRN, Starting on Mon01/04/16 at 1230, Until Mon01/05/16 at 0809, Anesthesia Intra-op Given 01/04/2016 12:30 PM EDT 200 mg REMIfentanil (ULTIVA) 0.02 mg/mL IV infusion (ANESTHESIA) CONTINUOUS PRN, Starting on Mon01/04/16 at 1232, Until Mon01/05/16 at 0809, Anesthesia Intra-op Rate/Dose Change 01/04/2016 4:55 PM EDT 0.05 mcg/kg/min 16.8 mL/hr Rate/Dose Change 01/04/2016 4:51 PM EDT 0.1 mcg/kg/min 33. 6 mL/hr Rate/Dose Change 01/04/2016 4:46 PM EDT 0.125 mcg/kg/min 4 2 mL/hr rocuronium (ZEMURON) multi-dose injection PRN, Starting on Mon01/04/16 at 1326, Until Mon01/05/16 at 0809, Anesthesia Intra-op, Routine Given 01/04/2016 3:55 PM EDT 20 mg Given 01/04/2016 2:46 PM EDT 20 mg Given 01/04/2016 1:26 PM EDT 20 mg documented in this encounter Care Teams Actuarial Consultant Relationship Specialty Start Date End Date Nanda Read MD KIRILL Carlos [address] [place] [address] PCP - General 09/14/10 06/06/18 documented as of this encounter
--- OUTSIDE RECORDS SUMMARY | 2024-05-15 11:12 | XMS_ITS | Encounter Summary ---
Author Organization Count Includes [facility] Address [facility] [place] [address] Care Team Providers Care Nursing Program Manager Name Role Phone Nanda Read MD Primary Care Provider [phone] Encounter Details Date Type Department Care Team (Late st Contact Info) Description 01/24/2016 - 01/24/2016 12:04 AM EDT Hospital Encounter [place] [address] [address] Alexis Temporary Pain Discharge Disposition: Home [...] SYRINGE ULT-FINE II 1 mL 31 x /16 Syrg USE WITH INSULIN TWO TIMES A [...] U-100 (INSULIN SYRINGE) 1/2 mL 30 x 516 Syrg by [facility].(Non-Drug; Combo Route) route 2 times daily. Using with insulin bid 1 Box 4 06/03/2011 04/06/2017 documented as of this encounter Plan of Treatment Upcoming Encounters Date Type Department Care Team (Late st Contact Info) Description 02/19/2025 9:00 AM EDT TH Visit (TeleHealth) [place] [address] Wyatt Higgins MD [facility] [place] [address] documented as of this encounter Procedures Procedure Name Priority Date/Time Associated Diagnosis Comments FILM LIBRARY STORAGE ONLY DX ABDOMEN Routine 01/24/2016 12:00 AM EDT Pain documented in this encounter Results * Film Library- Storage only DX Abdomen (01/24/2016 12:00 AM EDT) Narrative [facility] - 01/25/2016 11:33 AM EDT See PACS for result report. Dr [facility] FILM LIBRARY ORD ERABLES [place], [place] documented in this encounter Visit Diagnoses Diagnosis Pain Generalized pain documented in this encounter Care Teams Nursing Program Manager Relationship Specialty Start Date End Date Nanda Read MD KIRILL D [address] [place] [address] PCP - General 09/14/10 06/06/18 documented as of this encounter
--- OUTSIDE RECORDS SUMMARY | 2024-05-15 11:12 | XMS_ITS | Encounter Summary ---
Author Organization [facility] [place] [address] Care Team Providers Care Help Desk Assistant Name Role Phone Nanda Read MD Primary Care Provider Encounter Details Date Type Department Care Team (Late st Contact Info) Description 01/22/2016 Telephone [place] [address] Bravo Thomas MD [facility] [place] [address] Social History Tobacco Use Types Packs/Day Years [...] encounter Miscellaneous Notes * Telephone Encounter - Bravo Thomas - 01/22/2016 6:40 PM EDT Pt called to report persistent nausea and emesis in the evenings. Pt reports feeling okay in the AMand that she is able to stay hydrated throughout day. She has been having emesis every evening and is not tolerating more than pudding and jello and is concerned about progressing to stage 3 diet. She has an appointment scheduled to be seen on Monday in clinic. Will try to coordinate with clinic to have her seen on Monday when she is down for an endocrinology appointment. BRAVO THOMAS MD documented in this encounter Plan of Treatment Upcoming Encounters Date Type Department Care Team (Late st Contact Info) Description 02/19/2025 9:00 AM EDT TH Visit (TeleHealth) [place] [address] Wyatt Higgins MD [facility] [place] [address] documented as of this encounter Visit Diagnoses Not on filedocumented in this encounter Care Teams Help Desk Assistant Relationship Specialty Start Date End Date Nanda Read MD KIRILL D [address] [place], [place] [id number] PCP - General 09/14/10 06/06/18 documented as of this encounter
--- OUTSIDE RECORDS SUMMARY | 2024-05-15 11:12 | XMS_ITS | Encounter Summary ---
Author [place] [address] Care Team Providers Care Small Engine Technician Name Role Phone Nanda Read MD Primary Care Provider [phone] Encounter Details Date Type Department Care Team (Late st Contact Info) Description 12/23/2015 Telephone Endocr[place] [address] Chelsea Andrews LPN Social History Tobacco Use Types [...] Encounter - Chelsea Andrews LPN - 12/23/2015 8:56 AM EST Received call from patient today she reports she is scheduled for gastric bypass surgery 01/04/16, her concern is that she has been struggling with yeast for the past 8+ months , has in skin folds andrecurrent vaginal yeast infections. She does not want her skin effected at the time of surgery. In thinking she decided to stop her Invokana 4 days ago and has noticed a major improvement in her skin. He BS readings for the past few days have been 120's to 61 this morning , she is on a strict diet in preparation for the bypass surgery. Aware Dr. Reinoso is out of the office this week but will discuss this with the provider telephone assembler and get back to her. Patient agrees with this plan of care. documented in this encounter Plan of Treatment Upcoming Encounters Date Type Department Care Team (Late st Contact Info) Description 02/19/2025 9:00 AM EDT TH Visit (TeleHealth) [place] [address] Wyatt Higgins MD [facility] [place] [address] documented as of this encounter Visit Diagnoses Not on filedocumented in this encounter Care Teams Small Engine Technician Relationship Specialty Start Date End Date Nanda Read MD [facility] D [address] [place] [address] PCP - General 09/14/10 06/06/18 documented as of this encounter
--- OUTSIDE RECORDS SUMMARY | 2024-05-15 11:12 | XMS_ITS | Encounter Summary ---
Author Organization [facility] [place] [address] Care Team Providers Care Toolman Name Role Phone Nanda Read MD Primary Care Provider [phone] Encounter Details Date Type Department Care Team (Late st Contact Info) Description 11/22/2015 Orders [place] [address] Kisha Doss MD [facility] [place] [address] Gastropathy Social History Tobacco Use Types Packs/Day Years [...] as of this encounter Progress Notes * Kisha Doss MD - 11/22/2015 2:55 PM EST Martha Benoit [address] [facility] [address] November 22, 2015 Dear : Below are the results from your recent visit: Resulted Orders Surgical Pathology Report Result Value Ref Range Surgical Pathology Report [id number] Location: Surgical Pathology DIAGNOSIS Endoscopic biopsy - Gastric antral gland mucosa with nonspecific reactive gastropathy and focal intestinal metaplasia. No H. pylori-like microorganism is seen. With this finding it is important to make sure you don't have H. Pylori. Biopsies sometimes are notenough to rule this out. I am recommending a blood test and stool test. I am enclosing lab slips tohave these done. It is very important to do this before your bariatric surgery. Sincerely, Kisha Doss MD Section of Gastroenterology & Hepatology [address] [place] [id number] documented in this encounter Plan of Treatment Upcoming Encounters Date Type Department Care Team (Late st Contact Info) Description 02/19/2025 9:00 AM EDT TH Visit (TeleHealth) [place] [address] Wyatt Higgisn MD [facility] [place] [address] documented as of this encounter Visit Diagnoses Diagnosis Gastropathy Unspecified disorder of stomach and duodenum documented in this encounter Care Teams Toolman Relationship Specialty Start Date End Date Nanda Read MD [facility] [address] [place] [address] PCP - General 09/14/10 06/06/18 documented as of this encounter
--- OUTSIDE RECORDS SUMMARY | 2024-05-15 11:12 | XMS_ITS | Encounter Summary ---
Author Organization [facility] [place] [address] Care Team Providers Care Manager Medical Affairs Name Role Phone Nanda Oh MD Primary Care Provider [phone] Reason for Visit * Auth/Cert - Closed [...] Expiration Date Visits Re quested Visits Authorized [id number] Closed 1 1 Encounter Details Date Type Department Care Team (Latest Contact Info) Description 01/04/2016 10:38 AM EDT - 01/06/2016 11:00 AM EDT Hospital Encounter [address] [place] [id number] Yokasta Esquivel MD [facility] [place] [address] Discharge Disposition: Home Social History Tobacco Use [...] Sign Reading Time Taken Comments Blood Pressure 132/72 01/06/2016 8:00 AM EDT Pulse 73 01/06/2016 8:00 AM EDT Temperature 36.7 ??C (98.1 ??F) 01/06/2016 8:00 AM ED T Respiratory Rate 16 01/06/2016 8:00 AM EDT Oxygen Saturation 93% 01/06/2016 8:00 AM EDT Inhaled Oxygen Concentration - - Weight 112.9 kg (249 lb) 01/05/2016 1:56 PM EDT Height 160 cm (5' 3) 01/05/2016 1:56 PM EDT Body Mass Index 44.11 01/05/2016 1:56 PM EDT documented in this encounter Discharge [...] a 49-year-old female who participated in the [facility] [place] Program.?? She is a woman that has had full participation in the [facility] program.?? She actually started off in the [facility] Program and for a number of [...] changed to oral pain medications and the DIESEL SERVICE APPRENTICE was discont inued on POD# 1. She [...] %-97 %] Pertinent Lab Data: Recent Labs 03// 0650 //16 0544 WBC 11.5* 12.4* HGB 11.1* 12.0 HCT 35.2 36.3 PLATELET 200 225 Recent Labs 01/05/ 0650 //16 0544 NA 138 138 K 3.5 3.7 [...] Syrg Commonly known as: [place] [facility] [place]; Combo Route) route 2 [...] 01/21/2016 3:00 PM Judith Reinoso MD Endocrinology [phone] 01/27/2016 3:30 PM Yokasta Esquivel MD; BARIATRIC, INSPECTOR WATCH TRAIN General Surgery [phone] Instructions Given to Patient at Discharge: BARIATRIC SURGERY DISCHARGE INFORMATION CONTACT INFORMATION: [phone] Surgeons: Dr. Levy, Ki, Sergei and Trus [phone] Assistant Community Director: [phone] (Monday through Monday, 8:00 AM -5:00 PM) Dietitian: [phone] Non-business hours: [phone], ask for general surgeon caustic purification operator FOR EMERGENCIES: CALL 911 (trouble breathing, chest [...] Follow up with primary care provider or flight operations specialist in 1-2 weeks. Bring meter to [...] after surgery. Signed: BERE Pérez 01/06/2016 Primary [place] Physician: NANDA OH MD KIRILL D [address] / [facility] [id number] documented in this encounter Discharge Instructions * Discharge Instructions* Magaly Diego PA - 01/06/2016 10:05 AM EDT Scheduled Appointments: ?? Future Appointments?? Provider?? Department?? Dept Phone? 01/21/2016 3:00 PM?? Judith Reinoso MD?? Endocrinology?? [phone]? 01/27/2016 3:30 PM?? Yokasta Esquivel MD; BARIATRIC, INSPECTOR WATCH TRAIN?? General Surgery?? [phone]? Instructions Given to Patient at Discharge: BARIATRIC SURGERY DISCHARGE INFORMATION CONTACT INFORMATION: [phone] Surgeons: Ki Multani Laycock and Bernarda [phone] Assistant Community Director: [phone] (Monday through Monday, 8:00 AM -5:00 PM) Dietitian: [phone] Non-business hours: [phone], ask for general surgeon caustic purification operator FOR EMERGENCIES: CALL 911 (trouble breathing, chest [...] Follow up with primary care provider or flight operations specialist in 1-2 weeks.?? Bring meter to [...] 1/2 mL 30 x 5/16 [place] [facility] [place]; Combo Route) route 2 [...] 5. I'll see her at Endocrine clinic () on 3/31/16 at 3pm as scheduled. Will see if [...] treatment plan with RN and/or primary team, field crop ii farmworker and/or diabetes nurse educator, etc). * Magaly [...] Day Post-Op PLAN: NEURO: Pain control with DIESEL SERVICE APPRENTICE Dilaudid; transition to Oxycodone and Tylenol (tablet [...] EDT Record reviewed and patient discussed with staff psychiatrist. No Enoxaparin at time of discharge planned. Nodischarge needs identified at this time. Director Airport remains available as needed for coordination of care and discharge planning. Elizabeth Weiss RN Pager# [phone] Director Airport * Hollis Ruby DO - 01/04/2016 11:06 PM EDT Post-Operative Progress Note Patient: Martha Benoit s/p laparoscopic gastric bypass Surgery: 01/04/2016 [id number] Procedure(s) (LRB): @LAPAROSCOPIC GASTROPLASTY, (N/A) ENDOSCOPY, UPPER [...] suffered no apparent untoward event. Patient location: [facility] Surgical Floor Post-op Consciousness awake, alert [...] expecting some and it is tolerable with DIESEL SERVICE APPRENTICE. She does have significant peripheral neuropathy at baseline and has significant discomfort in her feet forwhich she usually treats with lidoderm patches. Objective: Vitals: Temp: [36.2 ??C (97.2 ??F)-36.9 ??C (98.4 ??F)] Heart Rate: [75-104] Resp: [14-30] BP: (119-161)/(62-135) SpO2: [97 %-100 %] Date 01/04/16 0700 - 01/05/16 0659 Shift 3730-3139 2341-9075 1814-8217 24 Hour Total I N T A [...] have post-operative bleed/complication - Analgesia adequate with DIESEL SERVICE APPRENTICE. Will add lidoderm patches bilateral LE for peripheral neuropathy - NPO HOLD MEDICATIONS, MIVF LR @ 100cc/hr - Monitor UOP, bolus as necessary - F/U CBC/BMP - Proph: SCD/Lovenox/SCD - continue all post-operative care - Dispo: Floor HOLLIS RUBY, 01/04/2016 11:06 PM documented in this encounter [...] in 1993, chronic poor control, untreated until 2006 (per her report) A. Current treatment: exenatide, glipizide, U 500 insulin BID, Invokana, metformin B. Monitoring: A1c 8.5 on 11/03/15, self monitoring QID- 170- 210 fasting, low 69- 150 afternoon, very rare low glucose in middle of night- treats with piece of chocolate (would rather have chocolate than glucose tabs) C. Complications: retinopathy,?? peripheral autonomic neuropathy, sees project portfolio analyst for calluses, declines flu shot ? GERD [...] hypothyroidism? Vitamin D deficiency with PTH elevation (29with normal calcium on 11/03/15), takes vitamin D [...] care? Seborrheic keratosis? History of tubular adenomas 2014? History of chest pain A. Stress ECHO [...] Date? Tubal ligation?? Bilateral?? 1988? ESWL?? Left?? 1987? ESWL?? Left?? 01/15/1995? Cystoscopy and stent placement?? Left?? 04/03/2001, 08/26/2001, 10/31/2000? Lithotripsy ? 12/26/2000? LEEP? 08/15/2009? Colposcopy? 04/08/2014? Excision of heel spur?? Left?? 2005? PRK for hyperopic astigmatism?? OU?? 2004? Upper gi endoscopy, exam and biopsy? 11/16/2011? UPPER GI ENDOSCOPY performed by ALISA RICHARDS at [facility] END[facility]?? Anesthesia history (per patient): denies untoward [...] Miscellaneous Notes * Plan of Care - Dennis Lomeli RN - 01/06/2016 1:32 AM EDT Problem: General Plan of Care Goal: Plan of Care Review Outcome: Ongoing (Interventions Implemented as Appropriate) 01/05/16 1402 01/05/162129 Plan of Care Review Plan of Care Outcome Status ongoing (interventions implemented as appropriate) -- Progress improving -- Coping/Psychosocial Response Interventions Plan of Care Reviewed with -- patient OUTCOME EVALUATION NOTE: OUTCOME SUMMARY: 2050-T-38.2-encouraged to use IS. 2129-Patient c/o nausea,informed MD [...] Outcome: Ongoing (Interventions Implemented as Appropriate) 01/05/16 2130 Coping/Psychosocial Response Interventions Counseling emotional support provided [...] this morning, but had perked up since. DIESEL SERVICE APPRENTICE discontinued. Pain controlled with prn oxycodone. States [...] on assist with ADLs Surveillance: Purposeful rounding, Pam, call dukes within reach CPG OUTCOME EVALUATION: [...] management and to provide a review of exterminator termite diabetes plan. Diabetes History: Martha Benoit has [...] -add-on lab for new baseline HbA1c today. [facility] diabetes care: Medications - We will determine treatment regimen upon discharge based on the hospital course. Monitoring - tid ac & hs Diet - low fat/low carb diet Exercise - weight-bearing exercise 30 min/day, as tolerated Thank you for allowing me to participate in the care of this very pleasant and interesting patient. Contact: Judith Reinoso MD, PhD, FACE (pager # [phone]) [facility] Endocrinology , x Consult service will continue to follow patient. Recommendations are above, please page if further consultation required. Thank you. * Plan of Care - Dennis Lomeli RN - 01/05/2016 2:04 AM EDT Problem: [...] abdominal lap sites encouraged to use the DIESEL SERVICE APPRENTICE.. PLAN MOVING FORWARD: Patient will be up [...] (CPG) Outcome: Ongoing (Interventions Implemented as Appropriate) 01/05/16146 Pain, Acute Related Risk Factors (Acute Pain) anxiety;surgery Signs and Symptoms (Acute Pain) guarding/abnormal posturing/positioning;nausea/vomiting/anorexia;verbalization of pain descriptors Goal: Acceptable Pain Control/Comfort Level Patient will demonstrate the desired outcomes. Outcome: Ongoing (Interventions Implemented as Appropriate) 01/05/16146 Pain, Acute (Adult, Obstetrics) Acceptable Pain Control/Comfort Level making progress toward outcome * Op Note - Yokasta Esquivel MD - 01/04/2016 5:00 PM EDT [facility] Operative Note Patient Name: Martha Benoit : [id number] MR#: [id number] Case Date: 01/04/2016 Surgeon: Surgeon(s) and Role: [...] and has had full participation in the [facility] Bariatric Surgery program. Following review of her [...] Endo-ZORAN 45. At this point, a 30 Emirati blunt tip bougie was passed by Anesthesia [...] AM EDT TH Visit (TeleHealth) [place] [address] Wyatt Higgins MD [facility] [place] [address] documented as of this encounter Procedures Procedure Name Priority Date/Time Associated Diagnosis Comments SOLVENT PROCESS EXTRACTOR OPERATOR SCAN 01/07/2016 12:00 AM EDT POCT GLUCOSE [...] in this encounter Results * SCAN DOC: SOLVENT PROCESS EXTRACTOR OPERATOR (01/07/2016 12:00 AM EDT) Anatomical Region Laterality Modality Other Scanning Provider MEDIA MGR SCAN EXT O RDR/RSLT * POCT Glucose (01/06/2016 8:27 AM EDT) POC Glucose 182 65 - 199 mg/dL [facility] Comment: Supplemental ranges: <140 mg/dL before meals <180 mg/dL all other times of the day Blood specimen (specimen) 01/06/2016 8:27 AM EDT 01/06/2016 8:27 AM EDT Yokasta Esquivel MD POINT OF CARE TEST ORDERABLES Performing Organization Address City/[facility]/ZIP Co de Phone Number [facility] [place] [address] * POCT Glucose (01/06/2016 7:05 AM EDT) POC Glucose 194 65 - 199 mg/dL [facility] Comment: Supplemental ranges: <140 mg/dL before meals <180 mg/dL all other times of the day Blood specimen (specimen) 01/06/2016 7:05 AM EDT 01/06/2016 7:05 AM EDT Yokasta Esquivel MD POINT OF CARE TEST ORDERABLES [facility] [place] [address] * (ABNORMAL) Differential, Automated (01/06/2016 6:50 AM EDT) Neutrophils % 73.0 % [facility] Neutr Abs (ANC) 8.38(H) 1.50 - 6.30 x10(3)/[facility] Lymphocytes % 17.8 % [facility] Lymphocytes Abs 2.0 1.0 - 3.6 x10(3)/[facility] Monocytes % 7.0 % [facility] Monocyte Abs 0.8 0.2 - 1.0 x10(3)/[facility] Eosinophils % 1.7 % [facility] Eosinophils Abs 0.2 0.0 - 0.5 x10(3)/[facility] Basophils % 0.2 % [facility] Basophils Abs 0.0 0.0 - 0.2 x10(3)/[facility] Immature Gran % 0.30 % [facility] Comment: Immature granulocytes(IG's)percentage and absolute count will include metamyelocytes, myelocytes, and promyelocytes. Blood smears from CBCs yielding IG's will be scanned manually for concordance. If this scan disagrees with the automated IG or if promyelocytes are noted, a manual differential will be performed. Zahra Gran Abs 0.03 0.00 - 0.05 x10(3)/[facility] Blood specimen (specimen) 01/06/2016 6:50 AM EDT 01/06/2016 7:08 AM EDT Narrative Resulting Agency Comment Spec In Lab Yokasta Esquivel MD HEMATOLOGY ORDERABL ES [facility] [place] [address] * (ABNORMAL) Hemogram (01/06/2016 6:50 AM EDT) WBC 11.5(H) 4.0 - 10.0 x10(3)/[facility]ORY RBC 4.20 3.93 - 5.22 x10(6)/[facility] Hemoglobin 11.1(L) 11.2 - 15.7 gm/dL [facility] Hematocrit 35.2 34.0 - 45.0 % [facility] MCV 83.8 79.0 - 94.0 fL [facility] MCH 26.4(L) 26.6 - 32.2 pg [facility] MCHC 31.5(L) 32.0 - 36.5 gm/dL [facility] Platelets 200 145 - 370 x10(3)/mcL [facility] RDWSD 43.4 35.0 - 46.0 fL [facility] RDWCV 14.3 10.9 - 14.4 % [facility] MPV 11.2 9.0 - 12.0 fL [facility] Blood specimen (specimen) 01/06/2016 6:50 AM EDT 01/06/2016 7:08 AM EDT Narrative Resulting Agency Comment Spec In Lab Yokasta Esquivel MD HEMATOLOGY ORDERABL ES [facility] [place] [address] * (ABNORMAL) Basic Metabolic Panel (non-fasting) (01/06/2016 6:50 AM EDT) Glucose Lvl 205(H) 65 - 199 mg/dL [facility] Comment:Diabetes: >=200 mg/d L plus symptoms BUN 7(L) 8 - 18 mg/dL [facility] Creatinine 0.35(L) 0.70 - 1.20 mg/dL [facility] Comment: Please note that the pediatric reference intervals supplied above were not validated at [facility]. Results from pediatric patients should be interpreted in conjunction to the patient's age, height and muscle mass. Sodium 138 135 - 145 mmol/L [facility] Potassium 3.5 3.5 - 5.0 mmol/L [facility] Comment: Please note: ??Patients with WBC >100,000 may have falsely elevated Potassium levels. ??For accurate Potassium quantification in these patients send serum separator tube (gold top) for subsequent determinations. ??Contact the Clinical Chemistry Laboratory if there are any questions. Chloride 99 98 - 107 mmol/L [facility] CO2 25 22 - 31 mmol/L [facility] Anion Gap 14 5 - 15 mmol/L [facility] Calcium 8.2(L) 8.5 - 10.5 mg/dL [facility] Estimated GFR >60 >=60 [facility] Comment: This estimated GFR (eGFR) value [...] the following links into your internet browser. [email or web address] [email or web address] Blood specimen (specimen) 01/06/2016 6:50 AM EDT 01/06/2016 7:08 AM EDT Narrative Resulting Agency Comment Spec In Lab Yokasta Esquivel MD CHEMISTRY ORDERABLE S Performing Organization Address City/[facility]/ZIP Co de Phone Number [facility] [place] [address] * POCT Glucose (01/05/2016 8:52 PM EDT) POC Glucose 147 65 - 199 mg/dL [facility] Comment: Supplemental ranges: <140 mg/dL before meals <180 mg/dL all other times of the day Blood specimen (specimen) 01/05/2016 8:52 PM EDT 01/05/2016 8:52 PM EDT Yokasta Esquivel MD POINT OF CARE TEST ORDERABLES [facility] [place] [address] * POCT Glucose (01/05/2016 4:42 PM EDT) POC Glucose 168 65 - 199 mg/dL [facility] Comment: Supplemental ranges: <140 mg/dL before meals <180 mg/dL all other times of the day Blood specimen (specimen) 01/05/2016 4:42 PM EDT 01/05/2016 4:42 PM EDT Yokasta Esquivel MD POINT OF CARE TEST ORDERABLES [facility] [place] [address] * (ABNORMAL) POCT Glucose (01/05/2016 11:40 AM EDT) POC Glucose 204(H) 65 - 199 mg/dL [facility] Comment: Supplemental ranges: <140 mg/dL before meals <180 mg/dL all other times of the day Blood specimen (specimen) 01/05/2016 11:40 AM EDT 01/05/2016 11:40 AM EDT Yokasta Esquivel MD POINT OF CARE TEST ORDERABLES [facility] [place] [address] * (ABNORMAL) POCT Glucose (01/05/2016 7:02 AM EDT) POC Glucose 231(H) 65 - 199 mg/dL [facility] Comment: Supplemental ranges: <140 mg/dL before meals <180 mg/dL all other times of the day Blood specimen (specimen) 01/05/2016 7:02 AM EDT 01/05/2016 7:02 AM EDT Yokasta Esquivel MD POINT OF CARE TEST ORDERABLES [facility] [place] [address] * (ABNORMAL) Hemoglobin A1c (01/05/2016 5:44 AM EDT) Hemoglobin A1C 8.4(H) 4.3 - 5.6 % [facility] Comment: Reference Range: 4.3 - [...] 1, S67-74 Est Avg Gluc 194 mg/dL [facility] Comment: eAG equivalents for HbA1c percentages: HbA1c(%) ?eAG(mg/dL) 6.0 ?126 6.5 ?140 7.0 ?154 7.5 ?169 8.0 ?183 8.5 ?197 9.0 ?212 9.5 ?226 10.0 ? 240 Limitations: The eAG calculation has not been validated on women, individuals below 18 years old and above 70 years old, and individuals with hemoglobinopathies. Additional resources are available on the ADA website: http://Uniil.com/DHMCadacalc Maurice GODINEZ, Marion J, Miriam R, et al. ??Translating the A1C assay into estimated average glucose values. ??Diabetes Care 2008:31(8):9002-6161. Blood specimen (specimen) Venous Draw / Unknown 01/05/2016 5:44 AM EDT 01/05/2016 10:26 AM EDT Narrative Resulting Agency Comment Spec In Lab Umberto Mcgill MD CHEMISTRY ORDERABLES [facility] [place] [address] * (ABNORMAL) Differential, Automated (01/05/2016 5:44 AM EDT) Neutrophils % 78.3 % [facility] Neutr Abs (ANC) 9.70(H) 1.50 - 6.30 x10(3)/[facility] Lymphocytes % 14.0 % [facility] Lymphocytes Abs 1.7 1.0 - 3.6 x10(3)/[facility] Monocytes % 7.3 % [facility] Monocyte Abs 0.9 0.2 - 1.0 x10(3)/[facility] Eosinophils % 0.1 % [facility] Eosinophils Abs 0.0 0.0 - 0.5 x10(3)/[facility] Basophils % 0.1 % [facility] Basophils Abs 0.0 0.0 - 0.2 x10(3)/[facility] Immature Gran % 0.20 % [facility] Comment: Immature granulocytes(IG's)percentage and absolute count will include metamyelocytes, myelocytes, and promyelocytes. Blood smears from CBCs yielding IG's will be scanned manually for concordance. If this scan disagrees with the automated IG or if promyelocytes are noted, a manual differential will be performed. Zahra Gran Abs 0.03 0.00 - 0.05 x10(3)/[facility] Blood specimen (specimen) 01/05/2016 5:44 AM EDT 01/05/2016 6:01 AM EDT Narrative Resulting Agency Comment Spec In Lab Umberto Mcgill MD HEMATOLOGY ORDERABLE S [facility] [place] [address] * (ABNORMAL) Hemogram (01/05/2016 5:44 AM EDT) WBC 12.4(H) 4.0 - 10.0 x10(3)/[facility] LABORATORY RBC 4.44 3.93 - 5.22 x10(6)/[facility] Hemoglobin 12.0 11.2 - 15.7 gm/dL [facility] Hematocrit 36.3 34.0 - 45.0 % [facility] MCV 81.8 79.0 - 94.0 fL [facility] MCH 27.0 26.6 - 32.2 pg [facility] MCHC 33.1 32.0 - 36.5 gm/dL [facility] Platelets 225 145 - 370 x10(3)/[facility]ATORY RDWSD 42.9 35.0 - 46.0 [facility] RDWCV 14.3 10.9 - 14.4 % [facility] MPV 11.3 9.0 - 12.0 [facility] Blood specimen (specimen) 01/05/2016 5:44 AM EDT 01/05/2016 6:01 AM EDT Narrative Resulting Agency Comment Spec In Lab Umberto Mcgill MD HEMATOLOGY ORDERABLE S [facility] [place] [address] * (ABNORMAL) Basic Metabolic Panel (non-fasting) (01/05/2016 5:44 AM EDT) Glucose Lvl 236(H) 65 - 199 mg/dL [facility] Comment:Diabetes: >=200 mg/d L plus symptoms BUN 10 8 - 18 mg/dL [facility] Creatinine 0.52(L) 0.70 - 1.20 mg/dL [facility] Comment: Please note that the pediatric reference intervals supplied above were not validated at [facility]. Results from pediatric patients should be interpreted in conjunction to the patient's age, height and muscle mass. Sodium 138 135 - 145 mmol/L [facility] Potassium 3.7 3.5 - 5.0 mmol/L [facility] Comment: Please note: ??Patients with WBC >100,000 may have falsely elevated Potassium levels. ??For accurate Potassium quantification in these patients send serum separator tube (gold top) for subsequent determinations. ??Contact the Clinical Chemistry Laboratory if there are any questions. Chloride 100 98 - 107 mmol/L [facility] CO2 24 22 - 31 mmol/L [facility] Anion Gap 14 5 - 15 mmol/L [facility] Calcium 7.9(L) 8.5 - 10.5 mg/dL [facility] Estimated GFR >60 >=60 [facility] Comment: This estimated GFR (eGFR) value [...] the following links into your internet browser. [email or web address] Blood specimen (specimen) 01/05/2016 5:44 AM EDT 01/05/2016 6:01 AM EDT Narrative Resulting Agency Comment Spec In Lab Umberto Mcgill MD CHEMISTRY ORDERABLES [facility] [place] [address] * (ABNORMAL) POCT Glucose (01/04/2016 11:06 PM EDT) POC Glucose 214(H) 65 - 199 mg/dL [facility] Comment: Supplemental ranges: <140 mg/dL before meals <180 mg/dL all other times of the day Blood specimen (specimen) 01/04/2016 11:06 PM EDT 01/04/2016 11:06 PM EDT Yokasta Esquivel MD POINT OF CARE TEST ORDERABLES [facility] [place] [address] * (ABNORMAL) POCT Glucose (01/04/2016 8:48 PM EDT) POC Glucose 258(H) 65 - 199 mg/dL [facility] Comment: Supplemental ranges: <140 mg/dL before meals <180 mg/dL all other times of the day Blood specimen (specimen) 01/04/2016 8:48 PM EDT 01/04/2016 8:48 PM EDT Yokasta Esquivel MD POINT OF CARE TEST ORDERABLES Performing Organization Address City/[facility]/ZIP Co de Phone Number [facility] [place] [address] * (ABNORMAL) POCT Glucose (01/04/2016 5:22 PM EDT) POC Glucose 218(H) 65 - 199 mg/dL [facility] Comment: Supplemental ranges: <140 mg/dL before meals <180 mg/dL all other times of the day Blood specimen (specimen) 01/04/2016 5:22 PM EDT 01/04/2016 5:22 PM EDT Yokasta Esquivel MD POINT OF CARE TEST ORDERABLES [facility] [place] [address] documented in this encounter Visit Diagnoses Diagnosis Obesity Obesity, unspecified documented in this encounter Admitting Diagnoses Diagnosis Obesity Obesity, unspecified documented in this encounter Administered Medications Inactive Administered Medications - up to 3 most recent administrations Medication Order MAR Action Action Date Dose Rate Site baclofen (LIORESAL) tablet 10 mg 10 mg, Oral, 4 TIMES DAILY, First dose (after last reorder) on Mon01/04/16 at 2200, Until Discontinued, Routine Given 01/06/2016 8:33 AM EDT 10 mg Given 01/05/2016 8:56 PM EDT 10 mg Given 01/05/2016 4:41 PM EDT 10 mg diphenhydrAMINE (BENADRYL) injection 12.5 mg 12.5 mg, Intravenous, EVERY 6 HOURS PRN, 3 doses, Starting on Mon01/04/16 at 1731, Until Mon01/04/16 at 1914, Other, nausea, PACU Recovery, Routine Given 01/04/2016 5:35 PM EDT 12.5 mg enoxaparin (LOVENOX) injection 40 mg 40 mg, Subcutaneous, EVERY 12 HOURS SCHEDULED (2 times per day), First dose on Mon01/05/16 at 0900, Until Discontinued, Routine Given 01/06/2016 8:35 AM EDT 40 mg Given 01/05/2016 8:59 PM EDT 40 mg Given 01/05/2016 8:08 AM EDT 40 mg fentaNYL (PF) 50 mcg/mL 2mL syringe 50 mcg, Intravenous, EVERY 5 MIN PRN, Pain, for 5-10 pain score, Starting on Mon01/04/16 at 1621, Until Mon01/04/16 at 1914, for 5-10 pain score Hold for respiratory rate less than 10 per minute. Maximum dose: 250 mcg over one hour., PACU Recovery Given 01/04/2016 6:20 PM EDT 50 mcg gabapentin (NEURONTIN) 300 mg/6 mL (6 mL) oral liquid 600 mg 600 mg, Oral, DAILY, First dose on Mon01/05/16 at 0900, Until Discontinued, Routine Given 01/05/2016 8:57 PM EDT 600 mg glipiZIDE (GLUCOTROL XL) CR tablet 10 mg 10 mg, Oral, DAILY WITH BREAKFAST, First dose on Mon01/05/16 at 1000, Until Discontinued, DO NOT CRUSH OR OPEN, Routine Given 01/06/2016 8:33 AM EDT 10 mg Given 01/05/2016 11:26 AM EDT 10 mg HYDROmorphone (DILAUDID) 1 mg/mL DIESEL SERVICE APPRENTICE 50 mL Intravenous, DIESEL SERVICE APPRENTICE ONLY, Starting on Mon01/04/16 at 1800, Until Mon01/05/16 at 0920, Recovery (Recovery-Hospital Unit) New Syringe/Cartridge 01/04/2016 5:53 PM EDT 50 mg HYDROmorphone (DILAUDID) syringe 0.2-0.4 mg 0.2-0.4 mg, Intravenous, EVERY 5 MIN PRN, Pain, Starting on Mon01/04/16 at 1621, Until Mon01/04/16 at 1914, For moderate pain (4-6) give: 0.2 mg every 5 minute prn For severe pain (7-10) give: 0.4 mg every 5 minutes prn Maximum dose: 4 mg per hour Hold for respiratory rate less than 10 per minute., PACU Recovery Given 01/04/2016 5:48 PM EDT 0.4 mg Given 01/04/2016 5:43 PM EDT 0.4 mg Given 01/04/2016 5:36 PM EDT 0.4 mg insulin aspart (NovoLOG) VIAL injection 3-12 Units 3-12 Units, Subcutaneous, 3 TIMES DAILY BEFORE [...] no insulin and resume prior schedule. Given 01/06/2016 8:27 AM ED T 6 Units Given 01/05/2016 4:44 PM EDT 6 Units Given 01/05/2016 12:00 PM EDT 9 Units lactated ringers infusion 1,000 mL 1,000 mL, at 100 mL/hr, Intravenous, CONTINUOUS, Starting on Mon01/04/16 at 1815, Until Mon01/06/16 at 1300, Recovery (Recovery-Hospital Unit) New Bag 01/05/2016 11:31 PM EDT 1,000 mLs 100 m L/hr New Bag 01/05/2016 1:52 PM EDT 1,000 mLs 100 mL/hr New Bag 01/05/2016 3:57 AM EDT 1,000 mLs 100 mL/hr levothyroxine (SYNTHROID) tablet 25 mcg 25 mcg, Oral, EVERY MORNING, First dose on Mon01/05/16 at 0600, Until Discontinued, Routine Given 01/06/2016 6:18 AM EDT 25 mcg lidocaine (LIDODERM) 5 % patch 2 patch 2 patch, Transdermal, DAILY, First dose on Mon01/05/16 at 0900, Until Discontinued, Apply patch(es) for 12 hours, and then remove for 12 hours, Routine Patch Applied 01/06/2016 8:30 AM EDT 2 patches 20-Other (document i n comment section) Patch Applied 01/05/2016 8:08 AM EDT 1 patch 20-Other (document in comment section) metFORMIN (GLUCOPHAGE) tablet 500 mg 500 mg, Oral, 2 TIMES DAILY WITH MEALS, First dose on Mon01/05/16 at 0800, Until Discontinued, Routine Given 01/05/2016 4:41 PM EDT 500 mg Given 01/05/2016 8:07 AM EDT 500 mg ondansetron (ZOFRAN) 4 mg/2 mL injection 1 dose, Starting on Mon01/04/16 at 1941, Until Mon01/04/16 at 1944, DENNIS LOMELI: cabinet override ondansetron (ZOFRAN) injection 4 mg 4 mg, Intravenous, EVERY 30 MIN PRN, Starting on Mon01/04/16 at 1621, Until Mon01/04/16 at 1914, Nausea, May repeat 4 mg once in 30 minutes. If multiple antiemetics ordered, use ondansetron first and if ineffective use prochlorperazine second and if ineffective use promethazine, PACU Recovery Given 01/04/2016 6:17 PM EDT 4 mg ondansetron (ZOFRAN) injection 4 mg 4 mg, Intravenous, EVERY 30 MIN PRN, 2 doses, Starting on Mon01/04/16 at 1938, Until Mon01/04/16 at 2320, Nausea, May repeat dose once in 30 minutes if no relief from previous dose. If multiple antiemetics are ordered, use ondansetron first, prochlorperazine second. Per DIESEL SERVICE APPRENTICE order., Recovery (Recovery-Hospital Unit) Given 01/04/2016 11:20 PM EDT 4 mg Given 01/04/2016 7:44 PM EDT 4 mg ondansetron (ZOFRAN) injection 4 mg 4 mg, Intravenous, EVERY 8 HOURS PRN, Starting on Mon01/05/16 at 2113, Until Mon01/06/16 at 1300, Nausea Given 01/05/2016 9:30 PM EDT 4 mg oxyCODONE (ROXICODONE) immediate release tablet 5-10 mg 5-10 mg, Oral, EVERY 4 HOURS PRN, Starting on Mon01/05/16 at 0918, Until Mon01/06/16 at 1300, Pain, Give 5mg for pain 1-4; give 10mg for pain 5-10, Routine Given 01/06/2016 8:24 AM EDT 10 mg Given 01/06/2016 4:01 AM EDT 10 mg Given 01/05/2016 11:05 PM EDT 5 mg pantoprazole (PROTONIX) injection 40 mg 40 mg, Intravenous, DAILY, First dose on Mon01/04/16 at 2000, Until Discontinued, Reconstitute with 10 mL of normal saline to a concentration of 4 mg/mL and infuse slowly over 2 minutes., Routine Given 01/05/2016 8:08 AM EDT 40 mg Given 01/04/2016 9:04 PM EDT 40 mg prochlorperazine (COMPAZINE) injection 10 mg 10 mg, Intravenous, EVERY 6 HOURS PRN, Starting on Mon01/05/16 at 2310, Until Mon01/06/16 at 1300, Nausea, Routine Given 01/06/2016 6:25 AM EDT 10 mg Given 01/05/2016 11:27 PM EDT 10 mg prochlorperazine (COMPAZINE) injection 5 mg 5 mg, Intravenous, EVERY 30 MIN PRN, 2 doses, Starting on Mon01/04/16 at 1938, Until Mon01/05/16 at 0602, Nausea, May repeat in 30 minutes if no relief from previous dose. HOLD if patient is sedated. Maximum dose is 40 mg in 24 hours. If multiple antiemetics are ordered, use ondansetron first, prochlorperazine second. Per DIESEL SERVICE APPRENTICE order., Recovery (Recovery-Hospital Unit), Routine Given 01/05/2016 6:02 AM EDT 5 mg Given 01/04/2016 9:12 PM EDT 5 mg promethazine (PHENERGAN) injection 12.5 mg 12.5 mg, Intravenous, EVERY 30 MIN PRN, Nausea, Starting on Mon01/04/16 at 1621, 2 doses, Until Mon01/04/16 at 1914, If multiple antiemetics ordered, use ondansetron first and if ineffective use prochlorperazine second and if ineffective use promethazine, PACU Recovery Given 01/04/2016 6:22 PM EDT 12.5 mg sodium chloride 0.9 % flush 5 mL 5 mL, Intravenous, 2 TIMES DAILY, First dose on Mon01/04/16 at 2100, Until Discontinued, Recovery (Recovery-Hospital Unit), Routine Given 01/06/2016 8:37 AM EDT 5 mLs Given 01/05/2016 9:01 PM EDT 5 mLs Given 01/05/2016 8:19 AM EDT 5 mLs documented in this encounter Active and Recently Administered Medications Times are shown in EDT. Scheduled Medication Order 01/04/2016 01/05/2016 01/06/2016 baclofen (LIORESAL) tablet 10 mg (CANCELED) 10 mg, Oral, 4 TIMES DAILY, First dose (after last reorder) on Mon01/04/16 at 2200, Until Discontinued, Routine 2200 (Not Given - Provider: Dennis Lomeli RN - Reason: NPO) 0807 (Given - Provider: Yasmine Stuart RN)1200 (Given - Provider: Yasmine Stuart RN)1641 (Given - Provider: Yasmine Stuart RN)2056 (Given - Provider: Dennis Lomeli RN) 0833 (Given - Provider: Abi Gagnon RN) enoxaparin (LOVENOX) injection 40 mg (COMPLETED) 40 mg, Subcutaneous, ONCE, 1 dose, On Mon01/04/16 at 1200, Please give in same day, Routine 1315 (Given - Provider: Misael Campos) enoxaparin (LOVENOX) injection 40 mg (CANCELED) 40 mg, Subcutaneous, EVERY 12 HOURS SCHEDULED (2 times per day), First dose on Mon01/05/16 at 0900, Until Discontinued, Routine 807 (Given - Provider: Yasmine Stuart RN)2058 (Given - Provider: Dennis Lomeli RN) 0835 (Given - Provider: Abi Gagnon, BRENDAN) gabapentin (NEURONTIN) 300 mg/6 mL (6 mL) oral liquid 600 mg 600 mg, Oral, DAILY, First dose on Mon01/05/16 at 0900, Until Discontinued, Routine 2056 (Given - Provider: Dennis Lomeli RN) 0835 (Not Given - Provider: Abi Gagnon RN - Reason: See comment - Comment: pt. takes at night) glipiZIDE (GLUCOTROL XL) CR tablet 10 mg 10 mg, Oral, DAILY WITH BREAKFAST, First dose on Mon01/05/16 at 1000, Until Discontinued, DO NOT CRUSH OR OPEN, Routine 1125 (Given - Provider: Yasmine Stuart RN) 0833 (Given - Provider: Abi Gagnon, BRENDAN) insulin aspart (NovoLOG) VIAL injection 3-12 Units [...] resume prior schedule. 2101 (Given - Provider: Dennis Lomeli RN) 08 (Given - Provider: Yasmine Stuart RN)1200 (Given - Provider: Yasmine Stuart RN)164 (Given - Provider: Yasmine Stuart RN) 0827 (Given - Provider: Abi Gagnon RN) levothyroxine (SYNTHROID) tablet 25 mcg (CANCELED) 25 mcg, Oral, EVERY MORNING, First dose on Mon01/05/16 at 0600, Until Discontinued, Routine 0600 (Not Given - Provider: Dennis Lomeli RN - Reason: NPO) 0618 (Given - Provider: Dennis Lomeli RN) lidocaine (LIDODERM) 5 % patch 2 [...] Routine 08 (Given - Provider: Yasmine Stuart RN)1641 (Given - Provider: Yasmine Stuart RN) 0800 (Not Given - Provider: Abi Gagnon RN - Reason: Patient/family refused) pantoprazole (PROTONIX) injection 40 mg (CANCELED) 40 mg, Intravenous, DAILY, First dose on Mon01/04/16 at 2000, Until Discontinued, Reconstitute with 10 mL of normal saline to a concentration of 4 mg/mL and infuse slowly over 2 minutes., Routine 2103 (Given - Provider: Dennis Lomeli RN) 08 (Given - Provider: Yasmine Stuart RN) 0837 (Not Given - Provider: Abi Gagnon RN - Reason: See comment - Comment: IV burning when flushed with NS, VAT notified) sodium chloride 0.9 % flush 5 mL (CANCELED) 5 mL, Intravenous, 2 TIMES DAILY, First dose on Mon01/04/16 at 2100, Until Discontinued, Recovery (Recovery-Hospital Unit), Routine 2104 (Given - Provider: Dennis Lomeli RN) 08 (Given - Provider: Yasmine Stuart RN)2101 (Given - Provider: Dennis Lomeli RN) 0837 (Given - Provider: Abi Gagnon, BRENDAN) Continuous Medication Order 01/04/2016 01/05/2016 01/06/2016 HYDROmorphone (DILAUDID) 1 mg/mL DIESEL SERVICE APPRENTICE 50 mL (CANCELED) Intravenous, DIESEL SERVICE APPRENTICE ONLY, Starting on Mon01/04/16 at 1800, Until Mon01/05/16 at 0920, Recovery (Recovery-Hospital Unit) 1753 (New Syringe/Cartridge - Provider: Benedicto Cameron, RN) 1011 (Stopped - Provider: Carolina Hinkle, RN) lactated ringers infusion 1,000 mL (CANCELED) 1,000 mL, at 100 mL/hr, Intravenous, CONTINUOUS, Starting on Mon01/04/16 at 1815, Until Mon01/06/16 at 1300, Recovery (Recovery-Hospital Unit) 1802 (New Bag - Provider: Benedicto Cameron RN) 0357 (New Bag - Provider: Dennis Lomeli RN)1352 (New Bag - Provider: Yasmine Stuart RN)2331 (New Bag - Provider: Dennis Lomeli RN) PRN Medication Order 01/04/2016 01/05/2016 01/06/2016 [...] Recovery, Routine 1735 (Given - Provider: Benedicto Cameron, BRENDAN) fentaNYL (PF) 50 mcg/mL 2mL syringe (CANCELED)(Linked [...] Benedicto Cameron RN)1748 (Given - Provider: Benedicto Cameron RN) ondansetron (ZOFRAN) injection 4 mg (CANCELED) 4 mg, Intravenous, EVERY 30 MIN PRN, Starting on Mon01/04/16 at 1621, Until Mon01/04/16 at 1914, Nausea, May repeat 4 mg once in 30 minutes. If multiple antiemetics ordered, use ondansetron first and if ineffective use prochlorperazine second and if ineffective use promethazine, PACU Recovery 181 (Given - Provider: Benedicto Cameron RN) ondansetron (ZOFRAN) injection 4 mg (COMPLETED) 4 mg, Intravenous, EVERY 30 MIN PRN, 2 doses, Starting on Mon01/04/16 at 1938, Until Mon01/04/16 at 2320, Nausea, May repeat dose once in 30 minutes if no relief from previous dose. If multiple antiemetics are ordered, use ondansetron first, prochlorperazine second. Per DIESEL SERVICE APPRENTICE order., Recovery (Recovery-Hospital Unit) 194 (Given - Provider: Dennis Lomeli RN)2319 (Given - Provider: Dennis Lomeli RN) ondansetron (ZOFRAN) injection 4 mg (CANCELED) 4 mg, Intravenous, EVERY 8 HOURS PRN, Starting on Mon01/05/16 at 2113, Until Mon01/06/16 at 1300, Nausea 2130 (Given - Provider: Dennis Lomeli RN) ondansetron (ZOFRAN-ODT) oral disintegrating tablet 4 [...] 5-10, Routine 1004 (Given - Provider: Carolina Hinlke RN)1352 (Given - Provider: Yasmine Stuart RN)1749 (Given - Provider: Yasmine Stuart RN)2305 (Given - Provider: Dennis Lomeli RN) 0401 (Given - Provider: Padma Ulloa RN)0824 (Given - Provider: Abi Gagnon RN) prochlorperazine (COMPAZINE) injection 10 mg (CANCELED) 10 mg, Intravenous, EVERY 6 HOURS PRN, Starting on Mon01/05/16 at 2310, Until Mon01/06/16 at 1300, Nausea, Routine 2327 (Given - Provider: Dennis Lomeli RN) 0625 (Given - Provider: Dennsi Lomeli RN) prochlorperazine (COMPAZINE) injection 5 mg (COMPLETED) 5 mg, Intravenous, EVERY 30 MIN PRN, 2 doses, Starting on Mon01/04/16 at 1938, Until Mon01/05/16 at 0602, Nausea, May repeat in 30 minutes if no relief from previous dose. HOLD if patient is sedated. Maximum dose is 40 mg in 24 hours. If multiple antiemetics are ordered, use ondansetron first, prochlorperazine second. Per DIESEL SERVICE APPRENTICE order., Recovery (Recovery-Hospital Unit), Routine 2111 (Given - Provider: Dennis Lomeli RN) 601 (Given - Provider: Dennis Lomeli RN) promethazine (PHENERGAN) injection 12.5 mg (CANCELED) [...] Recovery documented in this encounter Care Teams Manager Medical Affairs Relationship Specialty Start Date End Date Nanda Oh MD [facility] [address] [place] [address] PCP - General 09/14/10 06/06/18 documented as of this encounter
--- OUTSIDE RECORDS SUMMARY | 2024-05-15 11:12 | XMS_ITS | Encounter Summary ---
[facility] [place] [address] Care Team Providers Care Collar Folder Operator Name Role Phone Nanda Read MD Primary Care Provider [phone] Encounter Details Date Type Department Care Team (Late st Contact Info) Description 11/17/2015 3:00 PM EST Office [place] [address] Jose Mai MD [facility] [place] [address] Morbid obesity due to excess calories Social History Tobacco Use Types Packs/Day Years [...] as of this encounter Progress Notes * Jose Mai MD - 11/17/2015 1:59 PM EST Martha Benoit is a 49-year-old female who is participating in the [facility] that I am now seeing for possible bariatric surgery. She is a woman that has had full participation in the [facility] program. She actually started off in the [facility] and for a number of reasons is no longer affiliated with that program. She actually went through open bariatric surgery with her son many years ago and is very familiar with the procedure itself. At this point, she has had full participation, although we do want to see her back one more time to assure compliance with supplements, and I spent 25 minutes with her today, the entire time in [id number] conversation regarding reviewing the patient information booklet on bariatric surgery, specifically the risks section of the manual. I went over it with her in detail. Overall she seems well informed and would like to proceed as soon as reasonable. She would like to proceed with a Janeth-en-Y gastric bypass, and I think it is a reasonable option for her. At this point, we will go ahead and see her back for compliance with supplements and schedule her for a date of surgery once that has been achieved. documented in this encounter Plan of Treatment Upcoming Encounters Date Type Department Care Team (Late st Contact Info) Description 02/19/2025 9:00 AM EDT TH Visit (TeleHealth) [place] [address] Wyatt Higgins MD [facility] [place] [address] documented as of this encounter Visit Diagnoses Diagnosis Morbid obesity due to excess calories documented in this encounter Care Teams Collar Folder Operator Relationship Specialty Start Date End Date Nanda Read MD [facility] [address] [place] [address] PCP - General 09/14/10 06/06/18 documented as of this encounter
--- OUTSIDE RECORDS SUMMARY | 2024-05-15 11:12 | XMS_ITS | Encounter Summary ---
Author Organization [facility] [place] [address] Care Team Providers Care Care Clinician Name Role Phone Nanda Read MD Primary Care Provider [phone] Encounter Details Date Type Department Care Team (Late st Contact Info) Description 01/25/2016 Telephone [place] [id number] Cathy Dillon, OVEN TECHNICIAN [facility] [place] [address] Social History Tobacco Use Types Packs/Day Years [...] * Telephone Encounter - Cathy Dillon - 01/25/2016 10:22 AM EDT Bariatric Surgery Program I received a call from Dr. Read regarding Martha, who was admitted to [facility] yesterday with intermittent nausea, vomiting, difficulty with medications including antiemetics, failureto progress post op diet beyond stage 1. Martha is S/P RNY gastric bypass on 01/04/16. Per Dr. Read, Martha has not had abdominal pain. During her hospital stay, she has received IV hydration, pantoprazole IV, potassium supplementation for initial K of 3.1, repleted to 4.0. WBC was normal at 9, Hg 13.9 Hct 43.6, Cr 0.30 BUN 3, glucose in the ketones 3.3 yesterday. Today ketones 2.3. An abdominal CT with a small amount of oral contrast and IV contrast was read as unremarkable. Sheis receiving ondansetron and ativan IV and has not vomited during her hospitalization. Martha was onopiates prior to surgery for chronic pain, and has not taken any for a few days. She does not appear to have opiate withdrawal. Plan: discussed with Dr. Mai, transfer to [facility], will plan swallow at . CT scan pushed to for review by Dr. Mai. Copies of labwork done at [facility] will be scanned. Dr. Read and transfer center aware of plan. documented in this encounter Plan of Treatment Upcoming Encounters Date Type Department Care Team (Late st Contact Info) Description 02/19/2025 9:00 AM EDT TH Visit (TeleHealth) [place] [address] Wyatt Higgins MD [facility] [place] [address] documented as of this encounter Visit Diagnoses Diagnosis Morbid obesity, unspecified obesity type documented in this encounter Care Teams Care Clinician Relationship Specialty Start Date End Date Nanda Read MD [facility] [address] [place] [address] PCP - General 09/14/10 06/06/18 documented as of this encounter
--- OUTSIDE RECORDS SUMMARY | 2024-05-15 11:12 | XMS_ITS | Encounter Summary ---
Author Organization [facility] [place] [address] Care Team Providers Care Hosiery Mender Name Role Phone Nanda Read MD Primary Care Provider Encounter Details Date Type Department Care Team (Late st Contact Info) Description 11/17/2015 9:00 AM EST Office Visit [place] [id number] Social History Tobacco Use Types Packs/Day Years [...] AM EDT TH Visit (TeleHealth) [place] [id number] Wyatt Higgins MD [facility] [place] [address] documented as of this encounter Visit Diagnoses Not on filedocumented in this encounter Care Teams Hosiery Mender Relationship Specialty Start Date End Date Nanda Read MD [facility] [address] [place] [address] PCP - General 09/14/10 06/06/18 documented as of this encounter
--- OUTSIDE RECORDS SUMMARY | 2024-05-15 11:12 | XMS_ITS | Encounter Summary ---
Author Organization Formerly [facility] [place] [address] Care Team Providers Care Renovation Plant Supervisor Name Role Phone Nanda Read MD Primary Care Provider [phone] Encounter Details Date Type Department Care Team (Late st Contact Info) Description 11/17/2015 1:00 PM EST Office [place] [address] Rufina Vargas, PT [facility] & [place] [address] Foot drop, bilateral Social History Tobacco Use Types Packs/Day Years [...] as of this encounter Progress Notes * Rufina Vargas, PT - 11/17/2015 1:32 PM EST Physical Therapy Evaluation Patient profile: Patient is a 49 y.o. woman of Dr. Mai who is being evaluated for gastric bypass surgery.Referred to PT for evaluation of mobility prior to surgery. PMH: No past medical history on file. Past [...] GI ENDOSCOPY performed by ALISA RICHARDS at [facility] ??? Pro upper gi endoscopy, biopsy 11/16/2011 EGD WITH BIOPSY performed by ALISA RICHARDS at [facility] ??? Tubal ligation ??? Cystoscopy Left 01/15/1995 stent placement ??? Lithotripsy Left 12/26/2000 ??? Cystoscopy Left 04/03/2001 ??? Cystoscopy Left 08/26/2001 ??? Cystoscopy Left 10/31/2000 ??? Heel spur surgery Left ??? Pro upper gi endoscopy, diagnostic N/A 11/04/2015 EGD, UPPER GI ENDOSCOPY performed by Kisha Doss MD at [facility] Social History: Lives with her young son and 17 year old daughter. She is disabled from her diabetic peripheral neuropathy. She walks with a 4 wheeled walker, but is independent with all ADL's and mobility. She stated that she can walk about 20 mins at a time before needing to sit. Limited by LE burning from her peripheral neuropathy. She drives a car. Her son who is 30 has had bypass surgery in the past and she feels that she understands and knows a lot about the surgery. Has not fallen since she started using her walker. Pt stated that she sleeps in the bed or recliner or couch. It varies and she is restless and changes sleeping places throughout the night. Goes to the sorting and folding supervisor every 6 months. Stairs at home: ramp to enter. Equipment at home: 4 wheeled walker. Precautions/Special Considerations: at risk to fall; Subjective: I have tried AFO's in the past, but they bother me and I don't like them. I don't want to be in the hospital for very long. Objective: Pt was seen for evaluation with OT. Here with her son, Doni. Pain: bilateral LE pain that is chronic. Improves with rest. Vital Signs: nt, stable Mental Status/Behavior: Wnl, very pleasant and seems knowledgeable about surgical process. Strength: UE's wfl, bilateral foot drop noted. ROM: wfl Sensation: decreased from knees, distally. Skin: bilateral heel calluses, followed by podiatry. Bed Mobility: Independent Transfers: ? ? Sit <-> Stand independently to walker. Gait: ??? Pt. ambulated at least 25' with 4ww independently. She compensates for bilateral foot drop withincreased hip hike and she also externally rotates her hips. Balance: good standing balance with 4 wheeled walker. Education: Pt was instructed in proper log roll technique for bed mobility post op. All questions answered. Patient status, treatment, and mobility recommendations discussed with nursing. Assessment: Pt is mobilizing independently although somewhat limited by her bilateral peripheral neuropathic pain and foot drop. She seems to compensate well and is good about being proactive for foot care. She is motivated for surgery and to improve her walking distance for exercise post op. She does not haveany mobility problems that will inhibit her mobility post op, but walking distance may still be limited by neuropathic pain. Goals: To be achieved by 11/17/15. Met 1. Understands post op mobility issues. Plan: Will follow up post surgery as needed. Discharge Recommendations: Continue to mobilize as able. Total time spent with patient: 25 minutes Total timed interventions: 0 minutes Pager: [phone] RUFINA VARGAS PT Physical Therapy Rehabilitation Department G-Code: Mobility Status Modifier CURRENT CH - 0 percent impaired, limited or restricted PROJECTED CH - 0 percent impaired, limited or restricted DISCHARGE CH - 0 percent impaired, limited or restricted G Code Rationale: This G-Code and these disability modifiers were selected as the primary therapy goal based upon the patient's evaluation including the following functional test(s) No Functional Measure Used. Current ability measures, co-morbidities and clinical judgement were also used to select the disability modifier. Ms. Benoit's current G-Code functional level is 0% impaired based upon evaluation. documented in this encounter Plan of Treatment Upcoming Encounters Date Type Department Care Team (Late st Contact Info) Description 02/19/2025 9:00 AM EDT TH Visit (TeleHealth) [place] [address] Wyatt Higgins MD [facility] [place] [address] documented as of this encounter Visit Diagnoses Diagnosis Foot drop, bilateral Other acquired deformity of ankle and foot documented in this encounter Care Teams Renovation Plant Supervisor Relationship Specialty Start Date End Date Nanda Read MD [facility] [address] [place] [address] PCP - General 09/14/10 06/06/18 documented as of this encounter
--- OUTSIDE RECORDS SUMMARY | 2024-05-15 11:13 | XMS_ITS | Encounter Summary ---
[place] [address] Care Team Providers Care Clerical Adjudicator Name Role Phone Nanda Oh MD Primary Care Provider Reason for Referral * Occupational Therapy (Routine) - Closed Specialty Diagnoses / Procedures Referred By Patricio monsivais Referred To Contact Occupational Therapy Diagnoses Peripheral neuropathy due to disorder of metabolism Morbid obesity, unspecified obesity type Impaired mobility and ADLs Cathy Dillon APRN [facility] [address] [facility] [place] [address] Referral ID Status Reason Start Date Expiration Date V isits Requested Visits Authorized [id number] Closed Evaluate and Treat 11/08/2015 11/07/2016 1 1 * Physical Therapy (Routine) - Closed Specialty Diagnoses / Procedures Referred By Patricio monsivais Referred To Contact Physical Therapy Diagnoses Peripheral neuropathy due to disorder of metabolism Morbid obesity, unspecified obesity type Impaired mobility and ADLs Cathy Dillon APRN [facility] [place] [address] [facility] [place] [address] Referral ID Status Reason Start Date Expiration Date V isits Requested Visits Authorized [id number] Closed Evaluate and Treat 11/08/2015 11/07/2016 1 1 Reason for Visit * Reason Comments Morbid Obesity Bariatric Surgery Pr richard preoperative visit #1 Encounter Details Date Type Department Care Team (Latest Contact Info) Description 11/03/2015 11:00 AM EST Office [place] [id number] Cathy Dillon, [facility] [place] [address] Gastroesophageal reflux disease, esophagitis presence not specified; Type 2 diabetes mellitus with complication; Peripheral neuropathy due to disorder of metabolism; Morbid obesity, unspecified obesity type [E66.01]; Hyperlipidemia, unspecified hyperlipidemia type [E78.5]; Hypothyroidism, unspecified type [E03.9]; Vitamin D deficiency; Morbid obesity, unspecified obesity type; Impaired mobility and ADLs; Iron deficiency; Increased PTH level Social History Tobacco Use Types Packs/Day Years [...] Sign Reading Time Taken Comments Blood Pressure 142/61 11/03/2015 9:49 AM EST Pulse 84 11/03/2015 9:49 AM EST Temperature - - Respiratory Rate - - Oxygen Saturation 98% 11/03/2015 9:4 9 AM EST Inhaled Oxygen Concentration - - Weight 112 kg (247 lb) 11/03/2015 9:49 AM EST patient was wieghed with sneakers Height 160 cm (5' 3) 11/03/2015 9:49 AM EST patient was wearing sneakers Body Mass Index 43.75 11/03/2015 9:49 AM EST documented in this encounter Patient Instructions * Patient Instructions* Cathy Dillon T - 11/02/2015 9:22 PM EST BARIATRIC SURGERY PROGRAM FIRST VISIT Contact information: [facility] Admin coordinator Rosey: [phone] Dietitian: [phone] Surgeons/ nurse practitioner: [phone] Nurse line: [phone] Recommendations to do list after today's visit: Medications: consider getting a pill box. Bring in your medications to next visit ?? Start the following medications: Multivitamins with minerals once a day Evaluations/ testing: ?? The following evaluations are needed: 1. labwork today- 3L 2. Schedule a mammogram as soon as possible 3. UPPER ENDOSCOPY Upper endoscopy. Instructions: Do not eat solid food for 8 hours before the procedure. You may have clear liquids, such as water, SF popsicles, broth, small amounts of unsweetened apple juice for up to 4 hours beforethe procedure. Park: in the Parking Garage. Location: Go to [facility]. Date: tomorrow Time: arrive at: 10:15 AM Procedure starts ~1 hour after you arrive. Pending information: 1. Bring in the durable power of product test specialist Bariatric Surgery Program educational information: 1. Read the Bariatric Surgery Program Educational Handbook thoroughly, highlight important areas toremember. Write down any questions that you may have to discuss at next visit. 2. Bring the Handbook to ALL pre-operative visits, including the surgeon visit. Keep the handbook in a safe place for easy retrieval. Your next visits: All visits take place in the General Surgery Clinic, [facility] Friday 11/[address] Mai 3. 2nd visits with dietitian and nurse practitioner ([facility]- Shared Medical Appointment) 4. Surgical consultation 5. Pre-op class: to be determined at a later date 6. Bring the questionnaire to your next visit. Complete within 1 day of the visit. Nutrition: 1) Practice post-op GB diet recommendations prior to surgery to support post-op success and long-term weight loss: ??? Eat 3 meals daily, spaced about 4-6 hours apart. Add protein to breakfast. ??? Take your time when eating meals, at least 20-30 minutes per meal. ??? Avoid soda and limit caffeine consumption. ??? Sip 48-64 oz hydrating fluid daily between meals and avoid drinking with meals. ??? Use smaller plates/bowls/utensils for meals and eat smaller portions. ??? Plan meals 1 wk in advance and shop with a list. 2) Start taking a complete multivitamin daily. 3) Exercise with the eventual goal of 30 minutes minimum 5 days per week or exercise as recommendedby MD. 4) Practice this Meal Format: Protein first at all meals! Only eat until full. Breakfast 1st Protein (15-20 grams) 2nd Fruit (1 piece or ?? cup) 3rd Starch (1 serving) Lunch and Dinner 1st Protein (20 grams) 2nd Non-Starchy Vegetables (no limit, no fat) 3rd Starch (1 serving) 4th Fruit (1 piece or ?? cup) 1 serving of starch = 1 slice toast, ?? Pashto muffin, ?? cup cooked potato, rice, or pasta, 1 small nohemy or wrap Non starchy vegetables include all those except corn, peas, winter squash, beans, and potatoes Snacks: 1-2 per day if physically hungry - choose a protein or a fruit Surgery date: For patients who have insurers who have a long approval process, your surgery date and pre-operative class will be scheduled after you are approved by your insurer. We cannot predict your OR date in advance of approval. Only the OR therapy coordinator can provide you with a date. Questions for your doctor, specialist or pharmacist: 7. Ask your doctor about medication suggestions if you currently take medications that are largerthan the size of a tylenol. Large pills need to be crushed (if permitted by the drug associate professor of law) or taken in liquid form for TWO WEEKS after surgery. Diabetic oral medication often does not need hans taken after surgery) ?? If you take antinflammatory medications or steroid medications for arthritis or asthma, please check with your doctor. These medications will likely need to be held 1 week prior to and at least a few weeks after surgery. For women who take control or hormone medications: these medications must be stopped 1 month before and after surgery. Use alternative forms of control. Education: 1. Continue to read information about bariatric surgery- websites listed in your handbook Also check the ASMBS website: http://asmbs.org/patients 2. Bariatric surgery apps- [facility] Juan Francisco Apps- Pre-Juan Francisco, Post-juan francisco 3.[facility] facebook page: [email or web address] documented in this encounter Progress Notes * Cathy Dillon - 11/02/2015 8:23 PM EST Reason for consultation: Jo is a 49 y.o. year-old female referred by NANDA OH MD for consultation for consideration of surgical treatment of obesity. Prior bariatric surgery evaluations: previous evaluation at [facility]- reports had stomach problem and was derailed from program Her preferred procedure: gastric bypass BARIATRIC SURGERY PROGRAM PATHWAY Review of progress with the requirements of the Bariatric Surgery Program: 1. Education: She has attended a Introduction to the [facility] Bariatric Surgery Program seminar, a comprehensive two hour meeting that provides a program overview, education on bariatric surgeries offered at [facility], risks and benefits, as well as patient expectations and follow up, in 08/05/14. [facility] BSPEducational seminars viewed: 3. Grades on post-testin-100%. The BSP Educational Handbook is provided at preoperative visit #1. 2. Pre-operative programmatic evaluations required: PCP evaluation and letter of support to proceedwith surgery, BSP labwork (can be done on day of visit #1) and psychological evaluation- minimum of2 visits. 3. Bariatric Surgery Program evaluations with RD and TUBE SIZER AND CUTTER OPERATOR: 11/03/15 4. Weight history: 198 pounds on 08/25/04, 207 pounds on 03/20/09, 249 pounds on 07/01/14, 253 pounds on 02/20/15. HT: 63 WT at visit #1: 247 pounds 5. Gallbladder status: intact, not studied 6. Insurer specific requirements: [place] medicaid- 3 months of supervised counseling 7. BSP Team meeting discussion: previously- 09/30/10, recommended sleeve at that time due to need for surveillance of antrum 8. Next steps in pathway: ?? Additional testing/ consultations as determined as needed to be determined at today's visit. ?? If all [facility] requirements and testing have been completed: surgical consultation. ?? Following surgical consultation, if approved to proceed to surgery by the surgeon and insurer: an operating room date and pre-operative class will be scheduled. History of present illness: Jo reports a history of obesity since the age of 15. Factors that she identifies as contributing to her obesity include: overconsumption and inactivity. She denies binge eating, night eating disorder, self-induced vomiting, laxative or diuretic use or excessive exercise to lose weight. She reports that she lost 80 pounds due to depression after a divorce in 2006. Conservative efforts at weight loss have been unsuccessful in the mcc. Refer to nutrition note by [facility] dietitian for weight and dieting history, 24 hour dietary intake and recent dietary changes. Motivating factors for seeking surgery for bariatric surgery: see RD note Patient research in addition to attendance at [facility] Bariatric Surgery Informational meeting and online Educational seminars: see RD note Her goals of surgery: to walk better (she was advised that her neuropathy is unlikely to improve) Her perceived readiness for surgery: she feels ready to proceed Her goal weight:Jo is in agreement with predicted anticipated weight loss by 1 year post surgery Functional status: Exercise: As per RD note Is ambulation limited most or all of the time? no Tolerance: she can walk 15-20 minutes ~100 yards and climb a flight of stairs, does so with difficulty, has to climb to get out of home. She has a ramp at her home but can't access in the winter Karnofsky performance status scale: 70- cares for self, unable to carry on normal activity or to doactive work. She does some housekeeping and cooking, has a live in 17 year old adopted daughter whohelps ADLs: able to carry on without difficulty- independent, uses cart in store sometimes. In PT for 2 years nothing can be done. Legs are always on fire Use of assistive devices: wheeled walker Dyspnea with routine activity: denies Problem List ??? Preoperative Class IV obesity BMI 43.7 ??? Denies hypertension, lisinipril 2.5 mg is on medication list, likely for renal protection, doesn't take ??? Type 2 diabetes diagnosed in 1993, [...] C. Complications: retinopathy, peripheral autonomic neuropathy, sees antique auto museum maintenance worker for calluses, declines flu shot ??? GERD [...] H. pylori-like microorganism is seen C. EGD pending 2015 ??? Hyperlipidemia treated with pravastatin ??? Lower [...] when she remembers, usually takes once a week, but is prescribed for twice a week ??? Iron deficiency ??? Low B12 level ??? Memory impairment, S/P evaluation by neurology 2013 A. MRI brain done on 07/01/14: The [...] GI ENDOSCOPY performed by ALISA RICHARDS at [facility] END[facility]COPY Anesthesia history (per patient): denies untoward events Lactose/ Food/ Wheat/ Latex allergy/sensitivity: denies Diagnostic screenin. Lab data Results for JO JONES ( ) Ref. Range 03/05/2015 00:00 11/03/2015 13:10 WBC Latest Ref Range: 4.0-10.0 [...] 0.0 Sodium Latest Ref Range: 135-145 mmol/L 141 (External Lab) 142 Potassium Latest Ref Range: 3.5-5.0 mmol/L 4.5 (External Lab) 4.0 Chloride Latest Ref Range: 98-107 mmol/L 104 (External Lab) 104 CO2 Latest Ref Range: 22-31 mmol/L 28 (External Lab) 23 Anion Gap Latest Ref Range: 5-15 mmol/L 15 BUN Latest Ref Range: 8-18 mg/dL 12 (External Lab) 13 Creatinine Latest Ref Range: 0.70-1.20 mg/dL 0.50 (EXTERNAL/ABN) 0.43 (L) Estimated GFR Latest Ref Range: >=60 >60 Glucose Lvl Latest Ref Range: 65-199 mg/dL 86 Calcium Latest Ref Range: 8.5-10.5 mg/dL 8.9 (External Lab) 8.8 Hemoglobin A1C Latest Ref Range: 4.3-5.6 % 7.6 (EXTERNAL/ABN) 8.5 (H) Est Avg Gluc Latest Units: mg/dL 197 Uric Acid Latest Ref Range: 2.5-6.5 mg/dL 4.6 Total Protein Latest Ref Range: 6.1-8.0 gm/dL 7.5 (External Lab) 7.7 Albumin Latest Ref Range: 3.2-5.2 gm/dL 3.9 (External Lab) 3.9 Total Bilirubin Latest Ref Range: 0.2-1.3 mg/dL 0.6 (External Lab) 0.2 Bili, Direct Latest Ref Range: 0.0-0.3 mg/dL 0.4 (EXTERNAL/ABN) 0.1 Alk Phos Latest Ref Range: 40-104 unit/L 102 (External Lab) 93 AST Latest Ref Range: 0-30 unit/L 31 (External Lab) 19 ALT Latest Ref Range: 0-30 unit/L 29 (External Lab) 17 GGT Unknown 17 (External Lab) Ferritin Latest Ref Range: 30-400 ng/mL 23 (L) Folate Lvl Latest Ref Range: 4.6-34.8 ng/mL 19.2 Iron Latest Ref Range: 30-150 mcg/dL 30 TIBC Latest Ref Range: 250-450 mcg/dL 344 Iron Saturation Latest Ref Range: 20-50 % 9 (L) Vitamin B-12 Latest Ref Range: 207-974 pg/mL 327 25-Hydroxy D2 Unknown 24 (External Lab) 25-Hydroxy D3 Unknown 4.3 (External Lab) 25-OH Vit D Total Latest Ref Range: 30-100 ng/mL 28 (External Lab) 29 (L) Chol, Total Latest Units: mg/dL 205 (EXTERNAL/ABN) HDL Latest Units: md/dL 35 (EXTERNAL/ABN) Triglycerides Latest Units: mg/dL 161 (EXTERNAL/ABN) LDL Cholesterol Latest Units: mg/dL 138 (EXTERNAL/ABN) Vit B1 Lvl WB Latest Ref Range: 70-180 nmol/L 161 Vitamin A Latest Ref Range: 32.5-78.0 mcg/dL 37.7 Prealbumin Latest Ref Range: 20-40 mg/dL 20 TSH Latest Ref Range: 0.27-4.20 mcIU/mL 2.55 (External Lab) 2.39 PTH Latest Ref Range: 15-65 pg/mL 73 (H) C-Peptide Unknown 2.9 (External Lab) U Creatinine Unknown 162 (EXTERNAL/ABN) U Ran Malb Conc Unknown 39.2 (EXTERNAL/ABN) 2. Psychological evaluation done by [facility]. [facility] following sessions on 03/25 and 04/17/15: no contraindication to bariatric surgery from a psychological perspective. Screening/other: Date Evaluation Results 2014 Primary care 09/23/14 Colonoscopy 4 polyps ascending and descending colon, rectum- all tubular adenomas 03/24/15 Pap negative 08/07/14 Mammogram ACR category 1- advised to update - DEXA Family History: Father: in his 80s, diabetes, CVA at 59, obese, colon polyps ? type Mother: at 84, declined after hip fracture, obese until age 50, went on strict diet, and maintained weight loss, diabetes, Brother(s): 2- 1 is at 59, paraplegic after tree fell on him. Other brother- diabetes, obese Sister(s): 2- at 40, unknown cause, weakness prior to , Jo believes that she was poisoned in [place] [employer] in [place]. Other sister- diabetes type 2, otherwise healthy Familial diseases/disorders: Additional family history: [x] All others negative Obesity: both Diabetes: extensive Thyroid disease: Premature heart disease: Breast or colon cancer: Bleeding/ clotting disorders: Anesthesia complications: Renal calculi: Social History/ Health-related habits : Residence/ marital status:Jo is , lives with 14 year old nephew and 17 year old adopted daughter Elena.. She has 4 children and 4 adopted children. Plans for post-operative support: son Rickie, Elena and Mary niece Support persons viewed information on bariatric surgery: + Education/ Occupation: GED. She was previously employed in a [employer] and [employer] until her divorce became final. She is not officially disabled. Hobbies/Activities: Used to enjoy swimming. Currently enjoys reading Alcohol: none. She denies history of alcohol abuse. Tobacco: never Recreational drugs/Injection/Inhalant: denies recent or current use Screening for IPV in the past year: negative Osteoporosis risk factors: negative if blank []Advancing age [+]Previous fracture ankle- right as child []Glucocorticoid therapy []Parental history of hip fracture []Current cigarette smoking []Excessive alcohol consumption []Rheumatoid arthritis []Secondary osteoporosis (eg, hypogonadism or premature menopause, malabsorption, chronic liver disease, inflammatory bowel disease) control: BTL Dental visits: Regular- Q 6 months Living will/DPOA: Has, will bring to next viist Review of Systems (negative if left blank): Constitutional: [] fatigue EENT [+] wears corrective lens for ready [] vision or hearing problems Neurologic: [+] paresthesias [] dizziness [] chronic headaches Cardiovascular: [] history of chest pain, squeezing, pressure [] history of CA, previous PCI/ PTCA, cardiac surgery [] VTE, syncope, murmur [] palpitations Respiratory: [] shortness of breath [] wheezing [] COPD [] symptoms of sleep apnea - denies snoring, unfreshed sleep, am headaches, rarely naps [+] nocturia x 1 or none GI: [+] GERD and hiatal hernia, asymptomatic, not sure if takes medication [] dysphagia [] early satiety [] abdominal pain, hernia [] prior CT scan abdomen [] ED visit for abdominal pain [+] nausea, loose stool with metformin [} vomiting [] blood in stool [] chronic diarrhea/ constipation [] previous obesity surgery : [] incontinence [] hematuria [+] history of renal calculi CHAIR INSPECTOR AND LEVELER: [+] LMP: now, last cycle 1 year ago [] menorrhagia [] menopause Musculoskeletal [+] myalgia/arthralgias: as per problem list Extremities: [] Varicose veins, telangiectasias [+ occasional lower extremity edema, prn furosemide Skin: [+] skinfold rashes, abdomen and vaginal [] tattoos Endocrine: [+] DM [] PCOS [+] thyroid disease Heme/Lymph: [] excessive bruising [] lymphadenopathy [] transfusion [] blood donor in past year [] iron deficiency history Allergic/ Immun: [] use of steroid/ immunosuppressant for chronic condition [+] Latex, food or medication allergies: as per allergy list Psychiatric [+] History of depression related to divorce [] anxiety [ ] history of suicide attempt [] symptoms of bipolar disorder [] addictions- gambling, excessive shopping, prolonged internet use [] History of abuse [] psychiatric hospitalization [ ] rehab admission Other: [] smoker within 1 year of surgery [] current smoker [] anticoagulation Bariatric Surgery VTE Risk Assessment Score Patients will be considered to be at high risk if they have one or more of the following: Previous VTE or BMI >/= 60 kg/m2 Or two or more of the followin Age > 50 BMI >/= 50 kg/m2 Male sex Smoker within 1 year of surgery Obstructive sleep apnea Venous insufficiency/ varicose veins OCP or HRT within 30 days of surgery Total: 1 extended VTE prophylaxis is not indicated post bariatric surgery discharge Patients are advised to stop HRT and OCP/ DMPA 1 month prior to surgery and hold for 1 month postop, and use control during this time if appropriate. All patients who take coumadin preoperatively are referred to the Thrombosis Clinic for recommendations. Physical exam: Blood pressure 142/61, pulse 84, height 160 cm (5' 3), weight 112.038 kg (247 lb), SpO2 98 %. Bodymass index is 43.76 kg/(m^2). Neuro: Non-focal, gait antalgic, walks with rolling walker . Psych: Pleasant, conversant, normal affect, cognition and mood. Behavior: defensive, argumentative at negativistic at times ENT: neck thick, Neck circumference is 18 inches Halotosis Lungs: CTA without wheezing. Heart: RRR, no murmur appreciated. Abdomen: Obese, soft, non- tender, pannus Waist circumference is 53 inches Extremities: no lower extremity edema Skin: No areas of skin breakdown. Obesity distribution: central Discussion of treatment of obesity and of the [facility] Bariatric Surgery Program: Ms.. Jones is aware that other treatments for obesity are available, ie, dietary, behavior modification, weight loss medications, exercise as well as surgical weight loss methods. The risks and benefits of bariatric surgery, including gastric bypass, adjustable gastric banding and sleeve gastrectomy are discussed at every Introduction to the [facility] Bariatric Surgery Program meeting and all Educational Seminars, and will be reviewed in detail at the second pre- operative visit. The importance of incorporating lifestyle activity and regular exercise, such as walking, or swimming, after discussion and approval by her primary residential caregiver, prior to surgery, as well as post-operatively, was stressed. She is aware of our programmatic approach which includes four bariatric surgeons, as well as a dietitian and nurse practitioner. Mandatory requirements include: 1. attendance at a two hour Introduction to the [facility] Bariatric Surgery Program seminar 2. view 3 Bariatric Surgery Educational seminars and complete post testing 3. a no weight gain policy. Ongoing weight loss is encouraged. Insurers may have additional weight loss requirements. 4. a minimum of two pre-operative visits with the dietitian and nurse practitioner 5. surgical consultation 6. Two hour pre-operative class and completion of post-testing 7. any additional requirements mandated by the patient's insurance carrier. Prospective patients are encouraged to thoroughly research bariatric surgery, via the internet, the[facility] B[facility] website at [email or web address], books, and journals. In addition, information on bariatric surgery is available at the [employer] [facility] [employer] [employer] Library at [facility]. Assessment/ Plan: 49 y.o. year old female with Class III obesity with established obesity-related chronic disease including hypertension, type 2 diabetes, GERD and impairment of well-being. She has end-organ damage including diabetic complications and significant functional limitations and of impairment of well being. ?? Of concern is her longstanding less than ideal compliance to her medication regimen and overall health care, as evidenced by longstanding poor diabetes control and poor food choices, which have improved somewhat. She doesn't take all her medications regularly, rather, she has all her medicationsin a drawer, and judges each day what particular medications she might take. She admits to skippingher vitamin D doses and today's lab reveals vitamin D deficiency with a PTH elevation. She reports that her son who had gastric bypass doesn't take his vitamin supplements and does not follow up withthe bariatric surgery program, and she considers him the healthiest person she knows. Although omeprazole is on her medication list, she is uncertain if she takes it. She declined further mammograms because she found the experience unpleasant, however was advised that an updated mammogram is needed, given increased risk of breast cancer associated with morbid obesity. She would rather eat candy to treat hypoglycemia than take a glucose tablet. She was advised to purchase a pill box to improve medication compliance. She was advised of my concern that her non-compliance places her at risk for vitamin and mineral deficiencies after surgery, as well as poor weight loss. At her next visit, her compliance status will be assessed, and further discussion will take place with her surgeon, Dr. Mai. ?? Referrals have been made to PT and OT since she has an impaired functional status. ?? Given her ulcer history and prior abnormal EGDs including erosions and antral intestinal metaplasia, an upper endoscopy has been scheduled to rule out upper GI pathology. ?? She reports that she remains angry that she was advised that she was not considered a candidate for gastric bypass at [facility] and [facility] in 2009 due to antral intestinal metaplasia, and blames her health problems on this decision. She was reminded that she was offered a bariatric procedure at that time, which she declined. She has had failure to sustain weight loss by medical management and meets the criteria proposed bythe NIH Consensus Guidelines for surgical treatment of severe obesity. She is aware that there are non-surgical methods to achieve weight loss. She has been given a follow up appointment to discuss the risks and benefits of bariatric surgery. She has had an opportunity to have all her questions answered and is in agreement with the plan of care. She was encouraged to call with any questions or concerns. Data reviewed: CIS, e-DH, PCP notes, lab data, radiology reports, psychological evaluation. Information given to patient: 1. [facility] Bariatric Surgery Education Handbook, a 102 page document (revision July 2013) which contains extensive information regarding pre and post- operative care including: a copy of the Patient Agreement, illustrations of GI anatomy and gastric bypass, gastric banding and sleeve gastrectomy surgeries, [facility] Rehab Medicine recommendations and exercises prior to surgery, gastric bypass, gastric banding and sleeve gastrectomy risks and benefits, dietary information including the pre-operative and post-operative diets, DVT prevention guidelines,information on medications that can increase the risk of bleeding, pre-op preparation information, post-operative instructions and contact numbers. 2. Advised to take the following medications: vitamin D 50,000 units twice weekly for the next 6 months, iron daily for the next 6 months, B12 1000 mcg daily Studies and consults suggested to primary residential caregiver: NANDA OH MD 1. 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 * Taylor Vance - 11/02/2015 4:12 PM EST Bariatric Surgery Program Initial Nutrition Assessment Jo Jones is being seen today for a preoperative evaluation in anticipation of weight loss surgery. SUBJECTIVE Preferred procedure: gastric bypass Interest in bariatric surgery: Effects of diabetes- neuropathy. Wants to improve diabetes, be off insulin, improve neuropathy, and save her feet. She knows the nerve damage will not go away with surgery. Has been trying to get surgery for years now, went through [place] 's program and they founda problem in her stomach so delayed/ cancelled the surgery. She feels that not getting the surgery caused her diabetes to get worse. Motivating Factors for Seeking Weight Loss Surgery: ?? [x] Improved Health- diabetes ?? 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 [ ] Improved quality of life ?? [ ] Increased activity Research: ?? [x] Reading (Internet, books, etc.) - online research ?? [x] Talking to people who have had weight loss surgery- son had gastric bypass 15 years ago. 2 Friends in the community have been successful with weight loss. One suggested she get surgery and onesuggested she did not get surgery. But son is supportive of surgery. ?? [x] Attending introductory seminar ?? [x] Watching videos Social history: Has 8 grown children, 4 [...] 2- on insulin and Obesity Class III Overweight/obese since age: [age] years old Highest weight: 260# at age 49 Lowest weight: 116# at age 17 Dieting History: Type of Diet Wt Lost (lbs.) Wt. Regain (lbs.) Dates Duration Comments Calorie counting 1987 3 months Low carbohydrate 20 2006 9 months Dexatrim Not signifcant Not significant 1994 3 months Langley bloated and crampy Redux Dexfen 5 10 1993 4 months 3 Nutrition Visits (06/11, 07/14, and 08/21) 7 6 2014 5 months More fruits +veg, low carb History of diet pills to lose weight: Dexatrim History of bingeing/purging/laxatives to lose weight: none History of excessive exercise to lose weight: none Contributing Factors to Obesity: ?? [ ] Hx Binge Eating / Eating disorder ?? [x] Large portion sizes ?? [ ] Fast eater ?? [ ] Nighttime eating ?? [ ] Emotional eating ?? [ ] Mindless eating ?? [x] Choosing high calorie foods- fast food ?? [ ] Preference for concentrated sweets ?? [x] Snacking- before bed ?? [ ] Grazing ?? [x] Meal skipping- breakfast ?? [x] Physical Inactivity ?? [x] Genes, history of type 2 diabetes in family, she believes diabetes caused her to gain weight, does not believe she has ever been an unhealthy eater. Eating Triggers: ?? [ ] Emotions: ?? [ ] Boredom ?? [ ] Stress ?? [ ] Fatigue ?? [ ] Physical Hunger ?? [ ] Eating on a Schedule ?? [ ] Other: Food Allergies/Intolerances: ?? [ ] Gluten ?? [ ] Lactose ?? [x] None Recent Changes in Dietary/Lifestyle Habits: ?? [x] Smaller portions ?? [ ] Eating slower ?? [x] More fruits, vegetables, and whole grains ?? [ ] Leaner proteins ?? [ ] Lower calorie cooking methods (baking, broiling, grilling, etc.) ?? [x] Nutrition Counseling with PCP or RD ?? [ ] No longer buying tempting foods from grocery store ?? [ ] Cutting out soda ?? [ ] Cutting out concentrated sweets/ decreasing added sugar ?? [ ] Increased physical activity ?? [x] 3 Meals per day, ?? [x] Decrease carbs- limited breads and pasta, cut out fast food ?? Date changes implemented: May 2015 Tracking Intake: none Typical Daily Intake: Breakfast 9am: Fruit, orange or tangerine Snack Lunch 11:30: homemade vegetarian chili or fish or chicken + broccoli, leftovers from dinner Snack Supper 5 oz Fish or chicken breast + 1/2 cup broccoli, once in awhile hamburger (too expensive) Snacks whole bowl of cucumbers, celery stick, vegetables or fruit Holidays: Family members brought by [employer] and she was eating larger portions and more sweets Beverages: water, carries water bottle around all the time, sometimes coffee or OJ ETOH: none How Often Meals Eaten Away From Home: Not often Supplements/Vitamins: none Physical Activity: none, pain in body, legs and hands losing strength Psychological Indications: Not currently seeing, would go back to therapist if needed extra support. When she got , she saw a therapist for a few years. Vision at 2 years post-op: walk better, easier to get up and down stairs, not having to be on insulin, get back to walking and swimming Goal weight: none, rough idea is 160-170#, doesn't really care about weight loss. Most proud of in terms of health and well-being: Keeps pursuing weight loss surgery, not in a wheelchair, goal is to never be in wheel chair, raised successful kids. Character Strengths: realist, doesn't have unrealistic goals, hopeful. OBJECTIVE: Weight History: Date Weight (lbs) HT BMI Comments Summer 2014 260# Highest Weight (pt reported) 07/01/14 249# 63 44.1 Initial program weight 11/03/15 247# 63 43.7 1st pre-op visit [facility] % Surgery 1 month post-op 4 months post-op SUMMARY: Jo Jones has been referred for nutrition evaluation and diet instruction in anticipation of bariatric surgery. 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 Predicted weight loss with surgery is an estimated 50-70% of excess body weight, which would be a goal weight between 172-193#. Advised pt that bariatric surgery is a tool, not a solution; and ultimately, weight loss will be achieved through proper eating and exercise habits. She showed good understanding of the concepts discussed. NUTRITION DIAGNOSIS: - Obesity related to physical inactivity and over consumption as evidenced by BMI of 43.7. PLAN: 1) Patient to practice post-op GB diet recommendations prior to surgery to support post-op success and long-term weight loss: ??? Eat 3 meals daily, spaced about 4-6 hours apart. Add protein to breakfast. ??? Take your time when eating meals, at least 20-30 minutes per meal. ??? Avoid soda and limit caffeine consumption. ??? Sip 48-64 oz hydrating fluid daily between meals and avoid drinking with meals. ??? Use smaller plates/bowls/utensils for meals and eat smaller portions. ??? Plan meals 1 wk in advance and shop with a list. 2) Start taking a complete multivitamin daily. 3) Exercise with the eventual goal of 30 minutes minimum 5 days per week or exercise as recommendedby MD. 4) Patient to attend two pre-op educational classes prior to surgery. documented in this encounter Miscellaneous Notes * Advance Care Plan Note - Cathy Dillon - 11/03/2015 11:59 AM EST Hai Damian has DPOA- [phone]. Jo will bring copy of paperwork documented in this encounter Plan of Treatment Upcoming Encounters Date Type Department Care Team (Late st Contact Info) Description 02/19/2025 9:00 AM EDT TH Visit (TeleHealth) [place] [address] Wyatt Higgins MD [facility] [place] [address] Scheduled Referrals Name Type Priority Associated Diagnoses Orde r Schedule Referral to Physical Therapy Outpatient Referral Routine Peripheral neuropathy due to disorder of metabolism Morbid obesity, unspecified obesity type [E66.01] Impaired mobility and ADLs Ordered: 11/08/2015 Referral to Occupational Therapy Outpatient Referral Routine Peripheral neuropathy due to disorder of metabolism Morbid obesity, unspecified obesity type [E66.01] Impaired mobility and ADLs Ordered: 11/08/2015 documented as of this encounter Procedures Procedure Name Priority Date/Time Associated Diagnosis Comments UPPER GI ENDOSCOPY Routine 11/04/2015 10 :49 AM EST PTH Routine 11/03/2015 1:10 PM EST Morbid obesity, unspecified obesity type [E66.01] Vitamin D deficiency HEMOGRAM Routine 11/03/2015 1:10 PM EST Type 2 diabetes mellitus with complication Morbid obesity, unspecified obesity type DIFFERENTIAL, AUTOMATED Routine 11/03/2015 1:10 PM EST Type 2 diabetes mellitus with complication Morbid obesity, unspecified obesity type VITAMIN B1, WHOLE BLOOD Routine 11/03/2015 1:10 PM EST Peripheral neuropathy due to disorder of metabolism Morbid obesity, unspecified obesity type [E66.01] IRON AND TIBC Routine 11/03/2015 1:10 PM EST Morbid obesity, unspecified obesity type [E66.01] VITAMIN A Routine 11/03/2015 1:10 PM EST Morbid obesity, unspecified obesity type [E66.01] VITAMIN D, 25-HYDROXY Routine 11/03/2015 1:10 PM EST Morbid obesity, unspecified obesity type [E66.01] Vitamin D deficiency CBC (WITH DIFF) Routine 11/03/2015 1:10 PM EST Type 2 diabetes mellitus with complication Morbid obesity, unspecified obesity type [E66.01] URIC ACID Routine 11/03/2015 1:10 PM EST Morbid obesity, unspecified obesity type [E66.01] TSH Routine 11/03/2015 1:10 PM EST Morbid obesity, unspecified obesity type [E66.01] Hypothyroidism, unspecified type [E03.9] PREALBUMIN Routine 11/03/2015 1:10 PM EST Morbid obesity, unspecified obesity type [E66.01] HEMOGLOBIN A1C Routine 11/03/2015 1:10 PM EST Type 2 diabetes mellitus with complication Morbid obesity, unspecified obesity type [E66.01] FOLATE, SERUM Routine 11/03/2015 1:10 PM EST Morbid obesity, unspecified obesity type [E66.01] FERRITIN Routine 11/03/2015 1:10 PM EST Morbid obesity, unspecified obesity type [E66.01] VITAMIN B12 Routine 11/03/2015 1:10 PM EST Peripheral neuropathy due to disorder of metabolism Morbid obesity, unspecified obesity type [E66.01] COMPREHENSIVE METABOLIC PANEL (NON-FASTING) Routine 11/03/2015 1:10 PM EST Type 2 diabetes mellitus with complication Morbid obesity, unspecified obesity type [E66.01] Hyperlipidemia, unspecified hyperlipidemia type [E78.5] documented in this encounter Results * UPPER GI ENDOSCOPY (11/04/2015 10:49 AM EST) [facility] UPPER GI ENDOSCOPY [facility] Endoscopy Patient Name: Jo Jones ? Procedure Date: 11/04/2015 10:49 AM ? Date of : 1965 ? Age: 49 ? Order #: [id number] ? Procedure: ? Upper GI endoscopy Indications: ? Possible history of H. Pylori, ? planning gastric bypass Providers: ? Kisha Doss MD, Franchesca Ugarte, ? Telma Richardson Referring : ?Nanda Oh MD Medicines: ? Propofol per Anesthesia Complications: ? No immediate complications. Procedure: ? Pre-Anesthesia Assessment: ? - Prior to the procedure, a History ? and Physical was performed, and ? patient medications, allergies and ? sensitivities were reviewed. The ? patient's tolerance of previous ? anesthesia was reviewed. ? - The risks and benefits of the ? procedure and the sedation options ? and risks were discussed with the ? patient. All questions were answered ? and informed consent was obtained. ? The procedure, indications, benefits, ? risks and alternatives were explained ? to the patient. Specifically ? discussed were potential ? complications including, but not ? limited to, bleeding, perforation, ? infection, missing a cancer, and ? adverse medication reactions. The ? Endoscope was introduced through the ? mouth, and advanced to the third part ? of duodenum. The patient tolerated ? the procedure well. The upper GI ? endoscopy was accomplished without ? difficulty. The patient tolerated the ? procedure well. ? Findings: ? The esophagus was normal. ? A few localized small erosions were found in the ? gastric antrum. There were no stigmata of recent ? bleeding. Biopsies were taken with a cold forceps for ? histology. ? The examined duodenum was normal. ? Impression: ?- Normal esophagus. ? - Erosive gastropathy. Biopsied. ? Findings unchanged from previous ? endoscopies. I don't think these non ? specific erosions should preclude ? bariatric surgery. ? - Normal examined duodenum. Recommendation: ?- Await pathology results. ? Kisha Doss MD 11/04/2015 11:25 AM This report has been signed electronically. Number of Addenda: 0 Note Initiated On: 11/04/2015 10:49 AM PROVATION 11/04/2015 10:4 9 AM EST Jose Mai MD GENERAL SURGICAL OR DERABLES PROVATION * (ABNORMAL) Differential, Automated (11/03/2015 1:10 PM EST) Neutrophils % 64.4 % CERNER MILLENNIUM Neutr Abs (ANC) 6.39(H) 1.50 - 6.30 x10(3)/mc L CERNER MILLENNIUM Lymphocytes % 28.2 % CERNER MILLENNIUM Lymphocytes Abs 2.8 1.0 - 3.6 x10(3)/mc L CERNER MILLENNIUM Monocytes % 5.5 % CERNER MILLENNIUM Monocyte Abs 0.6 0.2 - 1.0 x10(3)/mc L CERNER MILLENNIUM Eosinophils % 1.3 % CERNER MILLENNIUM Eosinophils Abs 0.1 0.0 - 0.5 x10(3)/mc L CERNER MILLENNIUM Basophils % 0.4 % CERNER MILLENNIUM Basophils Abs 0.0 0.0 - 0.2 x10(3)/mc L CERNER MILLENNIUM Immature Gran % 0.20 % CERN ER MILLENNIUM Comment: Immature granulocytes(IG's)percentage and absolute count will include metamyelocytes, myelocytes, and promyelocytes. Blood smears from CBCs yielding IG's will be scanned manually for concordance. If this scan disagrees with the automated IG or if promyelocytes are noted, a manual differential will be performed. Zahra Gran Abs 0.02 0.00 - 0.05 x10(3)/mc L CERNER MILLENNIUM Blood specimen (specimen) 11/03/2015 1:10 PM EST 11/03/2015 1:29 PM EST Narrative Resulting Agency Comment Spec In Lab Yvonne Menchaca MD HEMATOLOGY ORDERABLE S Performing Organization Address [facility] Co de Phone Number CERNER MILLENNIUM * (ABNORMAL) Hemogram (11/03/2015 1:10 PM EST) WBC 9.9 4.0 - 10.0 x10(3)/mcL CERNER MILLENNIUM RBC 5.15 3.93 - 5.22 x10(6)/mcL CERNER MILLENNIUM Hemoglobin 13.6 11.2 - 15.7 gm/dL CERNER MILLENNIUM Hematocrit 42.1 34.0 - 45.0 % CERNER MILLENNIUM MCV 81.7 79.0 - 94.0 fL CERNER MILLENNIUM MCH 26.4(L) 26.6 - 32.2 pg CERNER MILLENNIUM MCHC 32.3 32.0 - 36.5 gm/dL CERNER MILLENNIUM Platelets 286 145 - 370 x10(3)/mcL CERNER MILLENNIUM RDWSD 43.6 35.0 - 46.0 fL CERNER MILLENNIUM RDWCV 14.7(H) 10.9 - 14.4 % CERNER MILLENNIUM MPV 10.7 9.0 - 12.0 fL CERNER MILLENNIUM Blood specimen (specimen) 11/03/2015 1:10 PM EST 11/03/2015 1:29 PM EST Narrative Resulting Agency Comment Spec In Lab Yvonne Menchaca MD HEMATOLOGY ORDERABLE S Performing Organization Address [facility] Co de Phone Number KENDALL MILLENNIUM * TSH (11/03/2015 1:10 PM EST) TSH 2.39 0.27 - 4.20 mcIU/mL CERNER MILLENNIUM Blood specimen (specimen) 11/03/2015 1:10 PM EST 11/03/2015 1:28 PM EST Narrative Resulting Agency Comment Spec In Lab Yvonne Menchaca MD CHEMISTRY ORDERABLES Performing Organization Address City/State/[facility] Co de Phone Number [facility] * Uric acid (11/03/2015 1:10 PM EST) Uric Acid 4.6 2.5 - 6.5 mg/dL [facility] Blood specimen (specimen) 11/03/2015 1:10 PM EST 11/03/2015 1:28 PM EST Narrative Resulting Agency Comment Spec In Lab Yvonne Menchaca MD CHEMISTRY ORDERABLES Performing Organization Address [facility] de Phone Number [facility] * Folate, serum (11/03/2015 1:10 PM EST) Folate Lvl 19.2 4.6 - 34.8 ng/mL [facility] Blood specimen (specimen) 11/03/2015 1:10 PM EST 11/03/2015 1:28 PM EST Narrative Resulting Agency Comment Spec In Lab Yvonne Menchaca MD CHEMISTRY ORDERABLES Performing Organization Address [facility] Co de Phone Number [facility] * Vitamin B12 (11/03/2015 1:10 PM EST) Vitamin B-12 327 207 - 974 pg/mL [facility] Blood specimen (specimen) 11/03/2015 1:10 PM EST 11/03/2015 1:28 PM EST Narrative Resulting Agency Comment Spec In Lab Yvonne Menchaca MD CHEMISTRY ORDERABLES Performing Organization Address [facility] Co de Phone Number [facility] * Vitamin B1, whole blood (11/03/2015 1:10 PM EST) Vit B1 Lvl WB 161 70 - 180 nmol/L [facility] Comment: Test Performed by: [facility] [address] [address] Clam Grader: Monisha Payne, Ph.D. Blood specimen (specimen) 11/03/2015 1:10 PM EST 11/03/2015 3:03 PM EST Narrative Resulting Agency Comment Spec In Lab Yvonne Menchaca MD CHEMISTRY ORDERABLES Performing Organization Address [facility] Phone Number [facility] * (ABNORMAL) VIT D Total Evaluation (11/03/2015 1:10 PM EST) 25-OH Vit D Total 29(L) 30 - 100 ng/mL [facility] Comment: Deficient <10 ng/mL Insufficient 10 to 29 ng/mL Sufficient 30 to 100 ng/mL Potential Intoxication >100 ng/mL According to the [place] National Osteoporosis Foundation, Vitamin D concentrations >30 ng/mL are sufficient to protect bone health. ??The National Kidney Foundation has similarly stated that patients with Vitamin D concentrations <30ng/mL should be considered to be insufficient or deficient. http://[employer]/DHMCnatlkidneyfoundation http://[employer]/DHMCVitD The [employer] i[employer] Vitamin D Immunoassay detects both 25-OH Vitamin D2 and 25-OH Vitamin D3, but only a total Vitamin D concentration is reported. Blood specimen (specimen) 11/03/2015 1:10 PM EST 11/03/2015 1:28 PM EST Narrative Resulting Agency Comment Spec In Lab Yvonne Menchaca MD CHEMISTRY ORDERABLES Performing Organization Address [facility] Phone Number [facility] * (ABNORMAL) PTH (11/03/2015 1:10 PM EST) PTH 73(H) 15 - 65 pg/mL [facility] Blood specimen (specimen) 11/03/2015 1:10 PM EST 11/03/2015 1:28 PM EST Narrative Resulting Agency Comment Spec In Lab Yvonne Menchaca MD CHEMISTRY ORDERABLES Performing Organization Address [facility] de Phone Number [facility] * Vitamin A (11/03/2015 1:10 PM EST) Vitamin A 37.7 32.5 - 78.0 mcg/dL [facility] Comment: Test Performed by: [facility] [address], [place] [address] Clam Grader: Monisha Payne, Ph.D. Blood specimen (specimen) 11/03/2015 1:10 PM EST 11/03/2015 3:03 PM EST Narrative Resulting Agency Comment Spec In Lab Yvonne Menchaca MD CHEMISTRY ORDERABLES CERNER MILLENNIUM * (ABNORMAL) Ferritin (11/03/2015 1:10 PM EST) Ferritin 23(L) 30 - 400 ng/mL CERNER MILLENNIUM Comment: Pediatric reference ranges not verified at [facility], interpret with caution. Reference ranges for females greater than 50 years of age approach values for men, i.e., 30-400 ng/mL. Blood specimen (specimen) 11/03/2015 1:10 PM EST 11/03/2015 1:28 PM EST Narrative Resulting Agency Comment Spec In Lab Yvonne Menchaca MD CHEMISTRY ORDERABLES Performing Organization Address City/[facility]/ZIP Co de Phone Number CERNER MILLENNIUM * (ABNORMAL) Iron and TIBC (11/03/2015 1:10 PM EST) Iron 30 30 - 150 mcg/dL CERNER MILLENNIUM TIBC 344 250 - 450 mcg/dL CERNER MILLENNIUM Iron Saturation 9(L) 20 - 50 % CER ER MILLENNIUM Blood specimen (specimen) 11/03/2015 1:10 PM EST 11/03/2015 1:28 PM EST Narrative Resulting Agency Comment Spec In Lab Yvonne Menchaac MD CHEMISTRY ORDERABLES [facility] * (ABNORMAL) Hemoglobin A1c (11/03/2015 1:10 PM EST) Hemoglobin A1C 8.5(H) 4.3 - 5.6 % CERNER MILLENNIUM Comment: Reference Range: 4.3 - 5.6% 5.7 - 6.4% - Increased Risk of Developing Diabetes Mellitus 6.5% - Consistent with diagnosis of Diabetes Mellitus In the absence of hyperglycemia (i.e. plasma glucose > 200 mg/dL) or classic symptoms of hyperglycemia a repeat measurement of HbA1c should be performed on a separate sample to confirm the diagnosis. Diagnosis and Classification of Diabetes Mellitus, Diabetes Care 2013; 36: Suppl. 1, Z87-35 Est Avg Gluc 197 mg/dL [facility] Comment: eAG equivalents for HbA1c percentages: HbA1c(%) ?eAG(mg/dL) 6.0 ?126 6.5 ?140 7.0 ?154 7.5 ?169 8.0 ?183 8.5 ?197 9.0 ?212 9.5 ?226 10.0 ? 240 Limitations: The eAG calculation has not been validated on women, individuals below 18 years old and above 70 years old, and individuals with hemoglobinopathies. Additional resources are available on the ADA website: http://[employer].OLED-T/DHMCadacalc Maurice GODINEZ, Marion J, Miriam R, et al. ??Translating the A1C assay into estimated average glucose values. ??Diabetes Care 2008:31(8):1845-0938. Blood specimen (specimen) 11/03/2015 1:10 PM EST 11/03/2015 1:29 PM EST Narrative Resulting Agency Comment Spec In Lab Yvonne Menchaca MD CHEMISTRY ORDERABLES [facility] * Prealbumin (11/03/2015 1:10 PM EST) Prealbumin 20 20 - 40 mg/dL CERNER MILLENNIUM Comment: Prealbumin levels are generally lower in the pediatric population; adult concentrations are usually attained near puberty. Blood specimen (specimen) 11/03/2015 1:10 PM EST 11/03/2015 1:28 PM EST Narrative Resulting Agency Comment Spec In Lab Yvonne Menchaca MD CHEMISTRY ORDERABLES [facility] * (ABNORMAL) Comprehensive metabolic panel (non-fasting) (11/03/2015 1:10 PM EST) Glucose Lvl 86 65 - 199 mg/dL CERNER MILLENNIUM Comment:Diabetes: >=200 mg/d L plus symptoms BUN 13 8 - 18 mg/dL CERNER MILLENNIUM Creatinine 0.43(L) 0.70 - 1.20 mg/dL CERNER MILLENNIUM Comment: Please note that the pediatric reference intervals supplied above were not validated at [facility]. Results from pediatric patients should be interpreted in conjunction to the patient's age, height and muscle mass. Sodium 142 135 - 145 mmol/L CERNER MILLENNIUM Potassium 4.0 3.5 - 5.0 mmol/L CERNER MILLENNIUM Comment: Please note: ??Patients with WBC >100,000 may have falsely elevated Potassium levels. ??For accurate Potassium quantification in these patients send serum separator tube (gold top) for subsequent determinations. ??Contact the Clinical Chemistry Laboratory if there are any questions. Chloride 104 98 - 107 mmol/L CERNER MILLENNIUM CO2 23 22 - 31 mmol/L CERNER MILLENNIUM Anion Gap 15 5 - 15 mmol/L CERNER MILLENNIUM Calcium 8.8 8.5 - 10.5 mg/dL CERNER MILLENNIUM Total Protein 7.7 6.1 - 8.0 gm/dL CERNER MILLENNIUM Albumin 3.9 3.2 - 5.2 gm/dL CERNER MILLENNIUM AST 19 0 - 30 unit/L CERNER MILLENNIUM ALT 17 0 - 30 unit/L CERNER MILLENNIUM Alk Phos 93 40 - 104 unit/L CERNER MILLENNIUM Total Bilirubin 0.2 0.2 - 1.3 mg/dL CERNER MILLENNIUM Bili, Direct 0.1 0.0 - 0.3 mg/dL CERNER MILLENNIUM Estimated GFR >60 >=60 CERNER MILLENNIUM Comment: This estimated GFR (eGFR) value was [...] the following links into your internet browser. [email or web address] Blood specimen (specimen) 11/03/2015 1:10 PM EST 11/03/2015 1:28 PM EST Narrative Resulting Agency Comment Spec In Lab Yvonne Menchaca MD CHEMISTRY ORDERABLES [facility] documented in this encounter Visit Diagnoses Diagnosis Gastroesophageal reflux disease, esophagitis presence not specified Type 2 diabetes mellitus with complication Peripheral neuropathy due to disorder of metabolism Morbid obesity, unspecified obesity type [E66.01] Hyperlipidemia, unspecified hyperlipidemia type [E78.5] Hypothyroidism, unspecified type [E03.9] Vitamin D deficiency Unspecified vitamin D deficiency Impaired mobility and ADLs Mechanical problems with limbs Iron deficiency Iron deficiency anemia, unspecified Increased PTH level Unspecified endocrine disorder documented in this encounter Care Teams Clerical Adjudicator Relationship Specialty Start Date End Date Nanda Oh MD [facility] [address] [place] [address] PCP - General 09/14/10 06/06/18 documented as of this encounter
--- OUTSIDE RECORDS SUMMARY | 2024-05-15 11:13 | XMS_ITS | Encounter Summary ---
Author Organization [facility] [place] [address] Care Team Providers Care Seam Steamer Name Role Phone Nanda Read MD Primary Care Provider Reason for Visit * Reason Comments Medication Refill Encounter Details Date Type Department Care Team (Late st Contact Info) Description 06/20/2015 Refill [place] [address] Judith Reinoso MD [facility] [place] [address] Social History Tobacco Use Types Packs/Day Years [...] AM EDT TH Visit (TeleHealth) [place] [id number] Wyatt Higgins MD [facility] [place] [address] documented as of this encounter Visit Diagnoses Not on filedocumented in this encounter Care Teams Seam Steamer Relationship Specialty Start Date End Date Nanda Read MD [facility] [address] [place] [address] PCP - General 09/14/10 06/06/18 documented as of this encounter
--- OUTSIDE RECORDS SUMMARY | 2024-05-15 11:13 | XMS_ITS | Encounter Summary ---
Author Organization [facility] [place] [address] Care Team Providers Care Tin Stacker Name Role Phone Nanda Read MD Primary Care Provider [phone] Reason for Visit * Reason Comments Diabetes Encounter Details Date Type Department Care Team (Late st Contact Info) Description 03/10/2015 1:00 PM EDT Office [place] [address] Judith Reinoso MD [facility] [place] [address] Type II or unspecified type diabetes mellitus with neurological manifestations, uncontrolled; Unspecified vitamin D deficiency; Vitamin B12 deficiency Discharge Disposition: Home Social History Tobacco Use [...] Sign Reading Time Taken Comments Blood Pressure 148/72 03/10/2015 12:48 PM EDT Pulse 94 03/10/2015 12:48 PM EDT Temperature - - Respiratory Rate - - Oxygen Saturation - - Inhaled Oxygen Concentration - - Weight 115 kg (253 lb 9.6 oz) 03/10/2015 12:48 P M EDT Height 160 cm (5' 3) 03/10/2015 12:48 PM EDT Body Mass Index 44.92 03/10/2015 12:48 PM EDT documented in this encounter Patient Instructions * Patient Instructions* Judith Reinoso MD - 03/10/2015 1:41 PM EDT Outside lab 03/05/15 at PCP office A1c 7.6% (was 9.3% last March) c-peptide 2.9 (was 1.5 in and 3.3 in 2008) TSH 2.55 25vitamin D 28 L TC 205, LDL 138, TG 161, HDL 35 Normal CMP Urine microalb/Cr -neg Assessment: Diabetes Type II - suboptimal but much better control with A1c down from 8.3- 9.3% range to 7.6% nowand still having good c-peptide 2.9 from her own insulin production (but still not enough for her need due to insulin resistance and obesity), It's good that she kept her wt stable over the past yearat 252- 253 lbs but needs to lose wt down. She has insulin resistance and required U-500 0.12 ml (60u) bid along with 3 oral agents. She used to respond to victoza but had N/V even at a low dose, so she had to quit it. We will try bydureon weekly as it has less GI effects and see if she can reduce insulin need and wt down. She really wanted to have gastric bypass for her worsening diabetic neuropathy but now not quite sure yet after she was recently offered the gastric bypass with full evaluation and she will need to call bariatric team back when she feels ready for the surgery. Complication Risk Status: complications present +sever peripheral neuropathy in both feet and walking with walker to help her balance Also, treated for refractory vitamin D deficiency with lowered vitamin D down to 18 when she missedthe medication and then better at 38-47 after she took vitamin D 50,000 iu 2x/wk but then low vitD level again and just resumed vitD supplement weekly over the past month. Her B12 was trending down from 400s to 300s and will give her B12 injection x1 today as a booster dose and then cont OTC-B12 1,000 mcg qd for her neuropathy Plan: 1. Medication: Adjustment of diabetes treatment regimen: To help both DM and wt down, she will start Bydureon 2 mgsc weekly and cont invokana 100 mg qd, metformin 500 mg tid or up to 1000 mg bid as tolerated. To reduce U-500 insulin from 0.12 ml bid to 0.05-0.10 ml bid after she starts using bydureon and allow her to titrate the dose further to keep BG 90-180 range. To use Humalog pen sliding scale as needed (1u:10-20 BG ratio). To cont low dose LT4 25 mcg qd. To cont vitamin D 50,000 iu weekly and recheck lab in 3 mo with her PCP directly To continue all other medications and healthy diet to keep wt down 2. To call bariatric surgery when she is ready to have gastric bypass soon for her obesity and diabetic neuropathy 3. Monitoring: to check FSBG before each meal and at bedtime. Target BG 90-150 while fasting and 80-180 pre-meal during daytime 1-2 h post meal below 200. Target A1c < 7% for this patient. 4. Diet and exercise: low fat/controlled carb diet & exercise as tolerated to keep weight down or at least stable. 5. Lab: Already checked lab with PCP as above 5. RTC: Next visit in 6 months to see if she responds to Bydureon and adjust insulin as indicated (hopefully she will consider to have gastric bypass soon to be able to cut back on insulin). Will check lab locally before next visit for HbA1c, B12 and 25vitamin D documented in this encounter Progress Notes * Zahra Sewell LPN - 03/10/2015 2:42 PM EDT Cyanocobalamin 1000 mcg admininstered IM in left deltoid per order. Site negative before and after injection. * Judith Reinoso MD - 03/10/2015 1:04 PM EDT Endocrine Clinic Name: [facility] : 1965 Date: 03/10/2015 PCP: NANDA READ MD Provided by: Judith Reinoso MD Reason for visit: Follow-up diabetes Diabetes treatment regimen: U-500 0.12 ml in am and pm. Humalog sliding scale p.r.n for correction of high BG>150 based on 1 unit for every 10 BG ratio. Also, metformin 500 mg qd/bid, glipizide 10mg qd/bid and Invokana 100 mg qd. FSBG: average 160s over the past 2 weeks Most recent HA1c: 7.6% on 03/05/15 at PCP's office (9.3% on 03/26/14), Hypoglycemia during the interval time: none Diet: low fat/low carb diet Exercise: walking Complications: no changes during the interim. Prevention: same as last visit recently. She is eating better and cut back soda (just drinks water) and kept her wt stable since last year. She is still having problem with foot drop from her peripheral neuropathy with some LE weakness, used to see neurologist carlos enriquen feels depressed with her increasing disability from her obesity and diabetes. Seen by bariatric trassplant team and got approval to go ahead for the surgery but then she is reluctant and has not called them back to schedule the surgery yet. Will encourage her to do so as it'll help with her wt and insulin resistance, especially when she could not tolerate metformin well (usually take the am dose but not the pm dose). Her vitamin D was very low at 18-> 38 better after increasing vitamin D 50.000 iu 2x/week but then she stopped it causing low vitamin D again. She resumed vitamin D 50,000 iu weekly with better level of 28 (nl 30-100) last week. Denies any changes in vision, no CP, SOB, GI issues, leg swelling or foot ulcer. She already had dilated eye exam in Nov with only cataract ou (mild). ROS: Please see HPI, all others negative Patient Active Problem List Diagnosis Code ??? History of kidney stones-bilateral V13.01 ??? Cervical cancer 180.9 ??? Chronic foot pain-s/p heel spur surgeries 729.5, 338.29 ? ? Diabetic retinopathy & neuropathy 250.50, 362.01 ??? Intestinal metaplasia of gastric mucosa-lower stomach-antrum 537.89 ??? Obesity 278.00 ??? Peripheral neuropathy-severe generalized 356.9 ??? Vitamin D deficiency 268.9 ??? DM renal manif type II, uncontrolled 250.42 ??? Peripheral autonomic neuropathy due to diabetes mellitus 250.60, 337.1 ??? Unspecified hypothyroidism 244.9 ??? Seborrheic keratosis 702.19 Current Outpatient Prescriptions on File Prior to Visit Medication Sig Dispense Refill ??? gabapentin (NEURONTIN) 300 mg Capsule Take 300 mg by mouth 2 times daily. ??? pravastatin (PRAVACHOL) 20 mg Tablet [...] Place 1 patch onto the skin every 24 hours. ??? baclofen (LIORESAL) 10 mg tablet Take 10 mg by mouth 3 times daily. ??? ergocalciferol (VITAMIN D) 50,000 unit capsule Take 1 capsule by mouth twice a week. ??? lisinopril (PRINIVIL;ZESTRIL) 2.5 mg tablet Take 2.5 mg by mouth daily. ??? omeprazole (PRILOSEC) 40 mg capsule Take 40 mg by mouth daily. ??? folic acid (FOLVITE) 1 mg tablet Take 1 mg by mouth daily. ??? furosemide (LASIX) 40 mg tablet Take 40 mg by mouth daily. ??? glipiZIDE (GLUCOTROL) 10 mg tablet Take 10 mg by mouth 2 times daily (before meals). ??? metFORMIN (GLUCOPHAGE) 500 mg tablet Take 500 mg by mouth 3 times daily. ??? POTASSIUM CHLORIDE (KLOR-CON 10 ORAL) Take 10 mEq by mouth 2 times daily. ??? Insulin Syringe-Needle U-100 (INSULIN SYRINGE) 1/2 mL 30 x 5/16 Syrg by [facility].(Non-Drug; Combo Route) route 2 times daily. Using with insulin bid 1 Box 4 ??? OXYcodone-acetaminophen (PERCOCET) 5-325 mg per tablet Take 2 tablets by mouth 4 times daily. No current facility-administered medications on file prior to visit. Allergies Allergen Reactions ??? Acetaminophen-Codeine Itching ??? Codeine Phosphate Nausea And Vomiting ??? Meperidine History Social History ??? Marital Status: Spouse Name: N/A Number of Children: N/A ??? Years of Education: N/A Occupational History ??? disabled Social History Main Topics ??? Smoking status: Never Smoker ??? Smokeless tobacco: Never Used ??? Alcohol Use: No ??? Drug Use: No ??? Sexual Activity: None Other Topics Concern ??? None Social History Narrative FAMILY HISTORY Family History Problem Relation Age of Onset ??? Diabetes ??? High Cholesterol ??? Hypertension ??? Stroke ??? Obesity ??? * kidney stone ??? Psoriasis ??? * congenital malformation in her son Physical exam BP 148/72 Pulse 94 Ht 160 cm (5' 3) Wt 115.032 kg (253 lb 9.6 oz) BMI 44.93 kg/m2 Appearance: Obese, pleasant, NAD HEENT: PERRLA, EOMI Neck: no goiter or lymphadenopathy Cardiac: normal S1, S2, no murmur Chest: CTA, no wheeze or crackle. Abdomen: benign, NT, ND Ext: no pitting edema no foot ulcer Neuro: mild weakness, depressed reflexes Outside lab 03/05/15 at PCP office A1c 7.6% (was 9.3% last March) c-peptide 2.9 (was 1.5 in and 3.3 in 2008) TSH 2.55 25vitamin D 28 L TC 205, LDL 138, TG 161, HDL 35 Normal CMP Urine microalb/Cr -neg Assessment: Diabetes Type II - suboptimal but much better control with A1c down from 8.3- 9.3% range to 7.6% nowand still having good c-peptide 2.9 from her own insulin production (but still not enough for her need due to insulin resistance and obesity), It's good that she kept her wt stable over the past yearat 252- 253 lbs but needs to lose wt down. She has insulin resistance and required U-500 0.12 ml (60u) bid along with 3 oral agents. She used to respond to victoza but had N/V even at a low dose, so she had to quit it. We will try bydureon weekly as it has less GI effects and see if she can reduce insulin need and wt down. She really wanted to have gastric bypass for her worsening diabetic neuropathy but now not quite sure yet after she was recently offered the gastric bypass with full evaluation and she will need to call bariatric team back when she feels ready for the surgery. Complication Risk Status: complications present +sever peripheral neuropathy in both feet and walking with walker to help her balance Also, treated for refractory vitamin D deficiency with lowered vitamin D down to 18 when she missedthe medication and then better at 38-47 after she took vitamin D 50,000 iu 2x/wk but then low vitD level again and just resumed vitD supplement weekly over the past month. Her B12 was trending down from 400s to 300s and will give her B12 injection x1 today as a booster dose and then cont OTC-B12 1,000 mcg qd for her neuropathy Plan: 1. Medication: Adjustment of diabetes treatment regimen: To help both DM and wt down, she will start Bydureon 2 mgsc weekly and cont invokana 100 mg qd, metformin 500 mg tid or up to 1000 mg bid as tolerated. To reduce U-500 insulin from 0.12 ml bid to 0.05-0.10 ml bid after she starts using bydureon and allow her to titrate the dose further to keep BG 90-180 range. To use Humalog pen sliding scale as needed (1u:10-20 BG ratio). To cont low dose LT4 25 mcg qd. To cont vitamin D 50,000 iu weekly and recheck lab in 3 mo with her PCP directly To continue all other medications and healthy diet to keep wt down 2. To call bariatric surgery when she is ready to have gastric bypass soon for her obesity and diabetic neuropathy 3. Monitoring: to check FSBG before each meal and at bedtime. Target BG 90-150 while fasting and 80-180 pre-meal during daytime 1-2 h post meal below 200. Target A1c < 7% for this patient. 4. Diet and exercise: low fat/controlled carb diet & exercise as tolerated to keep weight down or at least stable. 5. Lab: Already checked lab with PCP as above 5. RTC: Next visit in 6 months to see if she responds to Bydureon and adjust insulin as indicated (hopefully she will consider to have gastric bypass soon to be able to cut back on insulin). Will check lab locally before next visit for HbA1c, B12 and 25vitamin D We have reviewed our plan outlined above [...] TH Visit (TeleHealth) [place] [address] Wyatt Higgins MD [facility] [place] [address] documented as of this encounter Visit Diagnoses Diagnosis Type II or unspecified type diabetes mellitus with neurological manifestations, uncontrolled(250.62) Type II or unspecified type diabetes mellitus with neurological manifestations, uncontrolled Unspecified vitamin D deficiency Vitamin B12 deficiency Other B-complex deficiencies documented in this encounter Administered Medications Inactive Administered Medications - up to 3 most recent administrations Medication Order MAR Action Action Date Dose Rate Site cyanocobalamin (vitamin B-12) injection 1,000 mcg 1,000 mcg, Intramuscular, ONCE, 1 dose, On Mon03/10/15 at 1400, Routine Given 03/10/2015 1:50 PM EDT 1,000 mcg Left Deltoid documented in this encounter Care Teams Tin Stacker Relationship Specialty Start Date End Date Nanda Read MD [facility] [address] [place] [address] PCP - General 09/14/10 06/06/18 documented as of this encounter
--- OUTSIDE RECORDS SUMMARY | 2024-05-15 11:13 | XMS_ITS | Encounter Summary ---
Author Organization [facility] [place] [address] Care Team Providers Care Bulb Planter Name Role Phone Nanda Read MD Primary Care Provider [phone] Encounter Details Date Type Department Care Team (Late st Contact Info) Description 07/11/2014 1:15 PM EDT - 07/11/2014 11:59 PM EDT [place] [address] [facility], DR MORGAN Memory loss Social History Tobacco Use Types Packs/Day [...] 12 hours as needed. gabapentin (NEURONTIN) 300 mg Capsule Take 600 [...] mg by mouth 4 times daily. 03/08/2021 ergocalciferol (VITAMIN D) 50,000 unit capsule Take 1 capsule by mouth twice a week. 11/08/2015 lisinopril (PRINIVIL;ZESTRIL) 2.5 mg tablet Take 2.5 mg by mouth daily. 12/23/2015 omeprazole (PRILOSEC) 40 mg capsule Take 40 mg by mouth daily. 11/03/2015 folic acid (FOLVITE) 1 mg tablet Take 1 mg by mouth daily. Reported on 04/06/2017 04/06/2017 furosemide (LASIX) 40 mg tablet Take 40 mg by mouth as needed. 01/06/2016 glipiZIDE (GLUCOTROL) 10 mg tablet Take 10 mg by mouth 2 times daily (before meals). 01/06/2016 metFORMIN (GLUCOPHAGE) 500 mg tablet Take 500 mg by mouth 2 times daily (with meals). 02/05/2019 OXYcodone-acetamino phen (PERCOCET) 5-325 mg per tablet Take 1 [...] AM EDT TH Visit (TeleHealth) [place] [address] Wyatt Higgins MD [facility] [place] [address] documented as of this encounter Procedures Procedure Name Priority Date/Time Associated Diagnosis Comments MRI BRAIN WO CONTRAST Routine 07/11/2014 3:35 PM EDT Memory loss documented in this encounter Results * MRI brain WO contrast (07/11/2014 3:35 PM EDT) Anatomical Region Laterality Modality Head Magnetic Resonan ce 07/11/2014 3:35 PM EDT Narrative 07/11/2014 3:49 PM EDT Examination MR Brain without Contrast Clinical History non contrasted MRI brain early onset memory loss hippocampal/parietal volumes of interest Comparison None Technique MRI of the brain without contrast. ??Attention protocol. Findings The ventricles and sulci are proportional size. ??No focal areas of atrophy identified ; specifically the medial temporal lobes appear normal. . ??There are several small foci of signal alteration within the periventricular white matter. These likely represent very mild small vessel ischemic change. ??No diffusion weighted abnormalities. Midline structures are unremarkable. ??The paranasal sinuses are clear. ??The proximal intracranial flow voids appear normal. ?? Impression No significant volume loss. Procedure Note Sumit Gamboa MD - 07/11/2014 Examination MR Brain without Contrast Clinical History non contrasted MRI brain early onset memory loss hippocampal/parietal volumes of interest Comparison None Technique MRI of the brain without contrast. Attention protocol. Findings The ventricles and sulci are proportional size. No focal areas of atrophy identified ; specifically the medial temporal lobes appear normal. .There are several small foci of signal alteration within the periventricular white matter. These likely represent very mild small vessel ischemic change. No diffusion weighted abnormalities. Midline structures are unremarkable.The paranasal sinuses are clear. The proximal intracranial flow voids appear normal. Impression No significant volume loss. Korina Cho MD IMG MRI ORDERABLES documented in this encounter Visit Diagnoses Diagnosis Memory loss documented in this encounter Care Teams Bulb Planter Relationship Specialty Start Date End Date Nanda Read MD [facility] [address] [place] [address] PCP - General 09/14/10 06/06/18 documented as of this encounter
--- OUTSIDE RECORDS SUMMARY | 2024-05-15 11:13 | XMS_ITS | Encounter Summary ---
Author Organization [facility] [place] [address] Care Team Providers Care History Tutor Name Role Phone Nanda Read MD Primary Care Provider [phone] Reason for Referral * Consultation (Routine) - Complete - Patient Will Schedule External Appt Specialty Diagnoses / Procedures Referred By Patricio monsivais Referred To Contact General Surgery Diagnoses Type II or unspecified type diabetes mellitus with neurological manifestations, uncontrolled(250.62) Obesity Judith Reinoso MD [facility] [place] [address] [facility] [address] [place] [address] Referral ID Status Reason Start Date Expiration Date Visits Requested Visits Authorized [id number] Complete - Patient Will Schedule External Appt Consult, Test & Treat 04/29/2014 10/26/2014 1 1 Reason for Visit * Reason Comments Diabetes Encounter Details Date Type Department Care Team (Late st Contact Info) Description 04/29/2014 2:00 PM EDT Office Visit [place] [address] [facility] [place] [address] Type II or unspecified type diabetes mellitus with neurological manifestations, uncontrolled(250.62); Unspecified vitamin D deficiency; Chronic fatigue; Obesity Discharge Disposition: Home Social History Tobacco Use [...] Sign Reading Time Taken Comments Blood Pressure 152/71 04/29/2014 2:13 PM EDT Pulse 102 04/29/2014 2:13 PM EDT Temperature - - Respiratory Rate - - Oxygen Saturation - - Inhaled Oxygen Concentration - - Weight 114.5 kg (252 lb 6.4 oz) 04/29/2014 2:13 PM EDT Height 158.8 cm (5' 2.52) 04/29/2014 2:13 PM ED T Body Mass Index 45.4 04/29/2014 2:13 PM EDT documented in this encounter Progress Notes * Judith Reinoso MD - 04/29/2014 2:10 PM EDT Endocrine Clinic Name: Martha Benoit : 1965 Date: 04/29/2014 PCP: NANDA READ MD Provided by: Judith Reinoso MD Reason for visit: Follow-up diabetes Diabetes treatment regimen: U-500 0.12 ml in am and pm. Humalog sliding scale p.r.n for correction of high BG>150 based on 1 unit for every 10 BG ratio. Also, low dose victoza 0.6 mg sc qd, metformin 500 mg tid and glipizide 10 mg bid FSBG: average 200s over the past 2 weeks Most recent HA1c: 9.3% on 04/15/14 at PCP's office (9.0% on 05/24/13 and 8.9% on 05/26/12) Hypoglycemia during the interval time: none Diet: low fat/low carb diet Exercise: walking Complications: no changes during the interim. Prevention: same as last visit recently . She complained a lot about not having gastric bypass and used to have offer for gastric sleeve but she thought it was not for her. I explained to her at length that gastric sleeve is also good enoughto help her wt and diabetes and that in turns will help with her DM complications. She is still having problem from worsening peripheral neuropathy with LE weakness, seen by neurologist and feels depressed with her increasing disability from her obesity and diabetes. Her vitamin D was very low at 18-> 38 better after increasing vitamin D 50.000 iu 2x/week last year but then she stopped it causing low vitamin D again recently. ching get lab results faxed from her PCP office to us soon. Denies any changes in vision, no CP, SOB, GI issues, leg swelling or foot ulcer. ROS: Please see HPI, all others negative Patient Active Problem List Diagnosis Code ??? History of kidney stones-bilateral V13.01 ??? Cervical cancer 180.9 ??? Chronic foot pain-s/p heel spur surgeries 729.5 ? ? Diabetic retinopathy & neuropathy 250.50, 362.01 ??? Intestinal metaplasia of gastric mucosa-lower stomach-antrum 537.89 ??? Obesity 278.00 ??? Peripheral neuropathy-severe generalized 356.9 ??? Vitamin D deficiency 268.9 ??? DM renal manif type II, uncontrolled 250.42 ??? Peripheral autonomic neuropathy due to diabetes mellitus 250.60, 337.1 ??? Unspecified hypothyroidism 244.9 Current Outpatient Prescriptions on File Prior to Visit Medication Sig Dispense Refill ??? BD INSULIN SYRINGE ULT-FINE II 1 mL 31 x 5/16 Syrg USE WITH INSULIN TWO TIMES A DAY 100 Syringe 12 ??? insulin regular CONCENTRATE U-500 (HUMULIN R U-500 CONCENTRATED) 500 unit/mL Soln Inject subcutaneously 0.1 mL twice daily. 20 vial 4 ??? Liraglutide (VICTOZA) 0.6 mg/0.1 mL (18 mg/3 mL) PnIj Inject 1.8 mg subcutaneously daily. 3 pens = 1 month; 9 pens = 3 months 9 Pen 3 ??? gabapentin (NEURONTIN) 100 mg capsule Take 100 mg by mouth every evening. ??? lidocaine (LIDODERM) 5 %(700 mg/patch) Place [...] mg by mouth 3 times daily. ??? OXYcodone-acetaminophen (PERCOCET) 5-325 mg per tablet Take 1 tablet by mouth. 5 times per day as directed ??? POTASSIUM CHLORIDE (KLOR-CON 10 ORAL) Take 10 mEq by mouth 2 times daily. ??? Insulin Syringe-Needle U-100 (INSULIN SYRINGE) 1/2 mL 30 x 5/16 Syrg by [facility].(Non-Drug; Combo Route) route 2 times daily. Using with insulin bid 1 Box 4 Allergies Allergen Reactions ??? Acetaminophen-Codeine Itching ??? Codeine Phosphate Nausea And Vomiting ??? Meperidine History Social History ??? Marital Status: Spouse Name: N/A Number of Children: N/A ??? Years of Education: N/A Occupational History ??? disabled Social History Main Topics ??? Smoking status: Never Smoker ??? Smokeless tobacco: Never Used ??? Alcohol Use: No ??? Drug Use: No ??? Sexually Active: Not on file Other Topics Concern ??? Not on file Social History Narrative ??? No narrative on file FAMILY HISTORY Family History Problem Relation Age of Onset ??? Diabetes ??? High Cholesterol ??? Hypertension ??? Stroke ??? Obesity ??? * kidney stone ??? Psoriasis ??? * congenital malformation in her son Physical exam BP 152/71 Pulse 102 Ht 158.8 cm (5' 2.52) Wt 114.488 kg (252 lb 6.4 oz) BMI 45.40 kg/m2 Appearance: Obese, pleasant, NAD HEENT: PERRLA, EOMI, no retinopathy Neck: no goiter or lymphadenopathy Cardiac: normal S1, S2, no murmur Chest: CTA, no wheeze or crackle. Abdomen: benign, NT, no hepatosplenomegaly Ext: no pitting edema no foot ulcer Neuro:+LE weakness, depressed reflexes sensation was impaired in both feet up to mid bruce levels per 10 g of pressure monofilament testing Outside lab 04/15/14 (per phone to PCP office A1c 9.3% B12 331 Normal CMP *will fax all test results for our documentation soon Assessment: Diabetes Type II - suboptimal control with A1c 8.3-9.3% range over the past few years, still havingc-peptide from own insulin production but not enough for her need due to insulin resistance and obesity (wt up from 206 lbs in to 252 lbs today). She has insulin resistance and required U-500 0.12 ml (60u) bid along with 2 oral agents. She used to respond to victoza but had N/V even at a low dose, so she had to quit it. She really wants to have gastric bypass for her worsening diabetic neuropathy but was offered gastric sleeve which she does not want. I encourage her to consider the gastric sleeve with lowered risk and side effects for her. She wants to see gastric bypass clinic and will help put a referral for her today. Complication Risk Status: complications present +sever peripheral neuropathy in both feet and walking with walker to help her balance Also, treated for refractory vitamin D deficiency with lowered vitamin D down to 18 when she missedthe medation and then better at 38-47 after she was using vitamin D 50,000 iu 2x/week. However, shemissed the supplement and lab last week at PCP showed low vitD level again and she already resumed vitD supplement 2x/week over the past 2 weeks.Her B12 is trending down from 400s to 300s and she should have B12 injection x1 as a booster dose with her PCP soon as well. Plan: 1. Medication: Adjustment of diabetes treatment regimen: To help both DM and wt down, she will start invokana 100 mg qd to enhance glycosuria with hyperglycemia and possible side effect of UTI and vaginal yeast infection was explained today. To cont same dose of U-500 insulin from 0.1-0.12 ml bid and allow her to titrate the dose to keep BG 90-180 range. To check BG more often before each meal and at bedtime and to use Humalog pen sliding scale as needed(1u:10-20 BG ratio). To cont low dose LT4 25 mcg qd. To cont vitamin D 50,000 iu 2x/week and recheck lab in 3 mo To continue all other medications and healthy diet to keep wt down 2. Refer to bariatric surgery as she is now agreeble to have gastric sleeve for her obesity and diabetic neuropathy 3. [...] 5. Lab: Already checked lab with PCP at the end of March and will fax the results for us to review soon 5. RTC: Next visit in 3 months to see if she responds to invokana and adjust insulin as indicated. Will check lab locally before next visit for HbA1c, c- peptide, TSH, B12 and 25vitamin D. We have reviewed our plan outlined above [...] AM EDT TH Visit (TeleHealth) [place] [address] [facility] [place] [address] Scheduled Referrals Name Type Priority Associated Diagnoses Orde r Schedule Referral to Bariatric Surgery Program Outpatient Referral Routine Type II or unspecified type diabetes mellitus with neurological manifestations, uncontrolled Obesity Ordered: 04/29/2014 documented as of this encounter Results * (ABNORMAL) C-peptide (03/05/2015) C-Peptide 2.9(Externa l Lab) Blood specimen (specimen) 03/05/2015 Judith Reinoso MD CHEMISTRY ORDERAB LES * (ABNORMAL) Microalbumin, urine, random (03/05/2015) U Creatinine 162(RADIOLOGY PRACTITIONER ASSISTANT AL/ABN) U Albumin Conc, Random 39.2(EXTER NAL/ABN) Urine specimen (specimen) 03/05/2015 Judith Reinoso MD URINE ORDERABLES * (ABNORMAL) VIT D Total Evaluation (03/05/2015) 25-OH Vit D Total 28(Externa l Lab) 25-Hydroxy D2 24(Externa l Lab) 25-Hydroxy D3 4.3([facility] al Lab) Blood specimen (specimen) 03/05/2015 Judith Reinoso MD CHEMISTRY ORDERAB LES * (ABNORMAL) TSH (04/18/2014) TSH 0.074(EXTER NAL/ABN) Blood specimen (specimen) 04/18/2014 Judith Reinoso MD CHEMISTRY ORDERAB LES * (ABNORMAL) Hemoglobin A1c (04/15/2014) Hemoglobin A1C 9.3(RADIOLOGY PRACTITIONER ASSISTANT AL/ABN) Blood specimen (specimen) 04/15/2014 Judith Reinoso MD CHEMISTRY ORDERAB LES documented in this encounter Visit Diagnoses Diagnosis Type II or unspecified type diabetes mellitus with neurological manifestations, uncontrolled(250.62) Type II or unspecified type diabetes mellitus with neurological manifestations, uncontrolled Unspecified vitamin D deficiency Chronic fatigue Other malaise and fatigue Obesity Obesity, unspecified documented in this encounter Care Teams History Tutor Relationship Specialty Start Date End Date Nanda Read MD [facility] [address] [place] [address] PCP - General 09/14/10 06/06/18 documented as of this encounter
--- OUTSIDE RECORDS SUMMARY | 2024-05-15 11:13 | XMS_ITS | Encounter Summary ---
Author Organization [facility] Address [facility] [place] [address] Care Team Providers Care Information Assurance Manager Name Role Phone Nanda Read MD Primary Care Provider [phone] Reason for Visit * Auth/Cert Specialty Diagnoses / Procedures Referred By Patricio monsivais Referred To Contact Diagnoses preoperative bariatric surgery, history of gastric ulcers and hiatal herni. rule out upper GI pathology and H pylori Procedures PRO UPPER GI ENDOSCOPY, DIAGNOSTIC EGD, UPPER GI ENDOSCOPY Referral ID Status Reason Start Date Expiration Date Visits Re quested Visits Authorized [id number] 1 1 Encounter Details Date Type Department Care Team (Latest Contact Info) Description 11/04/2015 9:35 AM EST - 11/04/2015 12:05 PM EST Hospital Encounter [place] [address] Kisha Doss MD [facility] [place] [address] Discharge Disposition: Home Social History Tobacco Use [...] Sign Reading Time Taken Comments Blood Pressure 111/61 11/04/2015 11:41 AM EST Pulse 86 11/04/2015 11:41 AM EST Temperature - - Respiratory Rate 20 11/04/2015 11:41 AM EST Oxygen Saturation 96% 11/04/2015 11:41 AM EST Inhaled Oxygen Concentration - - Weight 112 kg (247 lb) 11/04/2015 10:47 AM EST Height - - Body Mass Index 43.75 11/03/2015 9:49 AM EST documented in this encounter Discharge Instructions * Discharge Instructions* Khalida Kennedy RN - 11/04/2015 11:39 AM EST UPPER GI ENDOSCOPY WHAT TO EXPECT AFTER THE PROCEDURE After the test you may feel a little more gassy or bloated than usual, this is normal. ACTIVITY Because of the sedation that you received Your judgement and reaction time are affected ?? Go home and rest quietly for the remainder of the day. You may resume your normal activities tomorrow. ?? Change from one position to the next slowly. You may lose your balance unexpectedly Be careful on stairs, as you may be unsteady on your feet. FOR THE NEXT 24 HRS ?? DO NOT DRIVE OR OPERATE ANY MACHINERY ?? DO NOT DRINK ALCOHOLIC BEVERAGES ?? DO NOT SIGN LEGAL DOCUMENTS ?? If you are a smoker: DO NOT SMOKE WHILE YOU ARE ALONE Diet ?? Start by eating small portions of foods that ordinarily will not upset your stomach. Be gentle with what you choose to start with. ?? Drink plenty of fluids ( unless otherwise told not to) Medications You may have a mild sore throat. Ice chips, popsicles, over the counter throat lozenges or spray may help numb your throat. This procedure should not cause a fever. IV SITE-- slight redness or tenderness is normal, you can use warm compresses if you get concerned.If the tenderness +/or redness increases or foul drainage and a red streak occurs, please contact your PCP immediately. WHEN SHOULD YOU CALL FOR HELP? Call 911 anytime you think that you need emergency care. For example, call if: You passed out (lost consciousness). You cough up blood. You vomit blood or what looks like coffee grounds. You pass maroon or very bloody stools. Call your healthcare provider or seek immediate medical attention if: You have trouble swallowing. You have belly pain. Your stools are black or tarlike or have streaks of blood. You are sick to your stomach or cannot keep fluids down. Watch closely for changes in your health, and be sure to contact your doctor IF Your throat still hurts after a day or two You do not get better as expected. Monday-Monday Same Day Endo [phone] Otherwise contact [phone] and ask to speak to the library services assistant hiv prevention specialist Follow-up care is a [place] part of your treatment and safety. Be sure to make and go to all appointments, and call your doctor if you are having problems. Instructions have been reviewed and patient expresses understanding documented in this encounter Medications [...] 1/2 mL 30 x 5/16 Syrg by [place].(Non-Drug; Combo Route) route 2 times daily. Using with insulin bid 1 Box 4 06/03/2011 04/06/2017 documented as of this encounter H&P Notes * Kisha Doss MD - 11/04/2015 10:55 AM EST Gastroenterology and Hepatology Pre-Procedure History and Physical Exam Procedure: EGD: Indication: hx of gastric ulcer Patient Active Problem List Diagnosis Code ??? History of kidney stones-bilateral Z87.442 ??? Chronic foot pain-s/p heel spur surgeries M79.673, G89.29 ? ? Diabetic retinopathy & neuropathy E11.319 ??? Intestinal metaplasia of gastric mucosa-lower stomach-antrum K31.89 ??? Morbid obesity E66.01 ??? Peripheral neuropathy-severe generalized G62.9 ??? Vitamin D deficiency E55.9 ??? DM renal manif type II, uncontrolled E11.29, E11.65 ??? Peripheral autonomic neuropathy due to diabetes mellitus E11.43 ??? Unspecified hypothyroidism E03.9 ??? Seborrheic keratosis L82.1 ??? Gastroesophageal reflux K21.9 EXAM: HEENT: Airway examined, oropharynx clear Mallampati Score: II (soft palate, uvula, fauces visible) LUNGS: Clear to auscultation HEART: Regular rate and rhythm, normal S1, S2 ABDOMEN: Normal bowel sounds, soft, non tender, non distended, A/P Proceed with the planned endoscopic procedure. ASA 3 - Patient with moderate systemic disease with functional limitations Sedation Plan: anesthesia Risks and benefits of the procedure explained to the patient. Consent signed. documented in this encounter Plan of Treatment Upcoming Encounters Date Type Department Care Team (Late st Contact Info) Description 02/19/2025 9:00 AM EDT TH Visit (TeleHealth) [place] [address] Wyatt Higgins MD [facility] [place] [address] documented as of this encounter Procedures Procedure Name Priority Date/Time Associated Diagnosis Comments SURGICAL PATHOLOGY REPORT Routine 11/04/2015 11:38 AM EST SPECIMEN TO PATHOLOGY Routine 11/04/2015 11:38 AM EST EGD, UPPER GI ENDOSCOPY (WRVU 2.09) 11/04/2015 11:07 AM EST preoperative bariatric surgery, history of gastric ulcers and hiatal herni. rule out upper GI pathology and H pylori POCT GLUCOSE Routine 11/04/2015 11:01 AM EST POCT FINGERSTICK GLUCOSE STAT 11/04/2015 documented in this encounter Results * Surgical Pathology Report (11/04/2015 11:38 AM EST) FINAL DIAGNOSIS (AP) [id number] ? Location: The signing pathologist has (i) examined the relevant preparation(s) for the specimen(s) and (ii) rendered or confirmed the diagnosis(es). . ?Surgical Pathology DIAGNOSIS Endoscopic biopsy - Gastric antral gland mucosa with nonspecific reactive gastropathy and focal intestinal metaplasia. No H. pylori-like microorganism is seen. 11/05/15 AAS 11/05/15 Verified by: ? Zenaida Pereira MD ?Pathologist ?(Electronic Signature) The attending pathologist whose signature appears on this report has reviewed all diagnostic slides and has edited the gross and/or microscopic portion of the report in rendering the final pathologic diagnosis. CLINICAL INFORMATION Specimen Submitted: A - Biopsies stomach Clinical History: Gastric erosions Clinical Diagnosis: Same SPECIMEN PROCESSING A - Labeled/Fixative: Biopsy stomach, formalin. Quantity/Size: Five, averaging 0.2 cm. Tissue Description: Soft, rsusell-pink tissue. Sections/Processi ng: (T1) ??ejr 11/05/2015 11:24 AM EST [facility] 11/04/2015 11:3 8 AM EST Kisha Doss MD PATHOLOGY/CYTOLOGY O RDERABLES [facility] [place] [address] * Specimen to Pathology (surgical or derm) (11/04/2015 11:38 AM EST) AP Specimen 11/04/2015 11:3 8 AM EST 11/04/2015 11:38 AM EST Narrative [facility] - 11/04/2015 11:38 AM EST Specimen requisition ordered. ??Separate Pathology report to follow Kisha Doss MD PATHOLOGY/CYTOLOGY O RDERABLES Performing Organization Address City/[facility]/ZIP Co de Phone Number [facility] * POCT Glucose (11/04/2015 11:01 AM EST) POC Glucose 144 65 - 199 mg/dL [facility] Comment: Supplemental ranges: <140 mg/dL before meals <180 mg/dL all other times of the day Blood specimen (specimen) 11/04/2015 11:01 AM EST 11/04/2015 11:01 AM EST Kisha Doss MD POINT OF CARE TEST O RDERABLES Performing Organization Address [facility]/ZIP Co de Phone Number [facility] * POCT Fingerstick Glucose (11/04/2015) POC Glucose 144 60 - 199 mg/dl 11/04/2015 Kisha Doss MD POINT OF CARE TEST O RDERAGONZALO documented in this encounter Visit Diagnoses Not on filedocumented in this encounter Administered Medications Inactive Administered Medications - up to 3 most recent administrations Medication Order MAR Action Action Date Dose Rate Site lactated ringers infusion 100 mL/hr, Intravenous, CONTINUOUS, Starting on Mon11/04/15 at 1100, Until Mon11/04/15 at 1152, Endoscopy (Day of Procedure) New Bag 11/04/2015 11:02 AM EST 100 mL/hr 100 mL/hr documented in this encounter Active and Recently Administered Medications Times are shown in EST. Continuous Medication Order 11/02/2015 11/03/2015 11/04/2015 lactated ringers infusion (CANCELED) 100 mL/hr, Intravenous, CONTINUOUS, Starting on Mon11/04/15 at 1100, Until 11/04/15 at 1152, Endoscopy (Day of Procedure) 1102 (New Bag - Prov ider: Saadia Hamilton RN) documented in this encounter Care Teams Information Assurance Manager Relationship Specialty Start Date End Date Nanda Read MD [facility] [address] [place] [address] PCP - General 09/14/10 06/06/18 documented as of this encounter
--- OUTSIDE RECORDS SUMMARY | 2024-05-15 11:13 | XMS_ITS | Encounter Summary ---
Author Organization [facility] [place] [address] Care Team Providers Care Maintenance And Custodian Supervisor Name Role Phone Nanda Read MD Primary Care Provider Reason for Visit * Reason Onset Date Comments Other 05/23/2013 Encounter Details Date Type Department Care Team (Late st Contact Info) Description 05/23/2013 [place] [address] Julio Cesar Wright MD [facility] [place] [address] Other Social History Tobacco Use Types Packs/Day [...] encounter Miscellaneous Notes * Telephone Encounter - Julio Cesar Wright MD - 05/27/2013 3:07 PM EDT ? * Telephone Encounter - Preeti Gonzalez RN - 05/27/2013 2:22 PM EDT Pt states that she is very discouraged and can not imagine what could be done now. She is interested in a clinical trial that Dr Wright mentioned however the conversation was distracted. Pt states, my treatment could be a 22 bullet. Pt does not have a plan for self harm and contracts for safety. Pt states, My friends use to call me to go to the beach and do normal things that I can no longer do. They stopped calling. I am totally isolated and am raising my grandchildren. It is very discouraging as I am only 47 years old. Enc that I am very sorry but that there is treatment to slow the progression of neuropathy however no cure for this disorder. We will contact the pt when results available, sooner with clinical trial information. * Telephone Encounter - Martha Stewart - 05/23/2013 3:51 PM EDT Patient would like to know the results of her testing with Dr Wright. Please call the patient to discuss - if patient needs a follow up appointment she would like it to be coordinated with Dr Reinoso's office. documented in this encounter Plan of Treatment Upcoming Encounters Date Type Department Care Team (Late st Contact Info) Description 02/19/2025 9:00 AM EDT TH Visit (TeleHealth) [place] [address] Wyatt Higgins MD [facility] [place] [address] documented as of this encounter Visit Diagnoses Not on filedocumented in this encounter Care Teams Maintenance And Custodian Supervisor Relationship Specialty Start Date End Date Nanda Read MD [facility] [address] [place] [address] PCP - General 09/14/10 06/06/18 documented as of this encounter
--- OUTSIDE RECORDS SUMMARY | 2024-05-15 11:13 | XMS_ITS | Encounter Summary ---
Author Organization [facility] [place] [address] Care Team Providers Care Supervisor [employer]er [employer] Name Role Phone Nanda Read MD Primary Care Provider [phone] Encounter Details Date Type Department Care Team (Late st Contact Info) Description 06/18/2014 8:45 AM EDT [place] [address] Korina Cho MD [facility] [place] [address] Memory loss Discharge Disposition: Home Social History Tobacco Use [...] Sign Reading Time Taken Comments Blood Pressure 144/64 06/18/2014 9:02 AM EDT Pulse 82 06/18/2014 9:02 AM EDT Temperature - - Respiratory Rate - - Oxygen Saturation - - Inhaled Oxygen Concentration - - Weight 113.4 kg (250 lb) 06/18/2014 9:02 AM EDT Height 160 cm (5' 3) 06/18/2014 9:02 AM EDT Body Mass Index 44.29 06/18/2014 9:02 AM EDT documented in this encounter Progress Notes * Korina Cho MD - 06/18/2014 9:52 AM EDT Ms. Benoit is a 48 year old female with poorly controlled diabetes, an acquired and possibly also inherited peripheral neuropathy (resulting in diffuse numbness, weakness, paresthesias, pain, instability of gait/stance), who presents for evaluation of memory loss. She is seen in consultation at the [facility] of Dr. Nanda Read. She complains a steep decline in memory that started about 8 yearsago, while she was in the midst of an emotionally challenging divorce. She says she noticed littlethings before her divorce, such as difficulty remembering appointments (appointments for both her self and for her children), difficulty remembering whether or not she had paid a bill, trouble remembering the names of familiar people. However, when she went through the divorce, which was extremelystressful, her memory loss became significantly more notable. Over the past 8 years, she says she has noticed increasing difficulty remembering appointments (where as previously she would remember ret roactively, she now cannot even remember that she was reminded earlier), she has more problems withnames of familiar people, but notes she also has trouble recognizing faces of familiar people. She has trouble remembering TV shows that she watched just a few weeks ago, and finds she often has to re-watch the TV show. She has to reread pages of books, and often doesn't remember the entire plot (gist and details forgotten) of a book she read a month ago. She forgets conversations and their details. She is scared and depressed about her new symptoms. Occasional difficulties with word retrieval, but notes that her problems are mainly with newly learned information. She continues to drive, has no problems remembering routes, no problems recognizingfamiliar land rodney. Has not run any red lights or stop signs. Forgets to pay bills unless she relies on her system of note taking and the use of an organized bill drawer. No problems making decisions, no problems with multitasking. No problems with cooking: is able to remember recipes with out the use of a cook book, is able to complete all cooking sequences in the proper order, no problems using familiar appliances. Has difficulty with mopping and sweeping due to poor balance. 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 She is convinced something else is going on with her besides a peripheral neuropathy. She is very concerned that when she pushes lightly on a knot in her lower back that she has electrical shock likesymptoms progressing down her legs bilaterally. Believes she was poisoned as a child: [place] and was exposed to pesticides (sprayed directly overhead while she and her sister played in the groves) on many occasions. She notes that her sister dies unexpectedly at the age of 40. Two years prior to her , she became slow, weak, couldn't get in to her van. No autopsy was performed, so cause of remains unknown. Martha's own symptoms of weakness started about 6 months after the of her sister. Medical history: Cervical cancer Diabetes Diabetic retinopathy Obesity Peripheral neuropathy Hypothyroidism History Social History ??? Marital Status: Spouse [...] History Narrative ??? No narrative on file Family history: Sister of unclear causes (unexpectedly) at the age of 40 after a two year history of ? progressive weakness. Mother has early dementia (is 83 now). Current Outpatient Prescriptions on File Prior to Visit Medication Sig Dispense Refill ??? levothyroxine (SYNTHROID) 25 mcg tablet TAKE 1 TABLET BY MOUTH DAILY 90 tablet 4 ??? canagliflozin 100 mg Tab Take 100 mg by mouth daily. Free 30-day supply with coupon 30 tablet 11 ??? BD INSULIN SYRINGE ULT-FINE II 1 [...] = 3 months 9 Pen 3 ??? lidocaine (LIDODERM) 5 %(700 mg/patch) Place [...] 2 tablets by mouth 4 times daily. 5times per day as directed ??? POTASSIUM CHLORIDE (KLOR-CON 10 ORAL) Take 10 mEq by mouth 2 times daily. ??? Insulin Syringe-Needle U-100 (INSULIN SYRINGE) 1/2 mL 30 x 5/16 [place] [facility]Non-Drug; Combo Route) route 2 times daily. Using with insulin bid 1 Box 4 Allergies Allergen Reactions ??? Acetaminophen-Codeine Itching ??? Codeine Phosphate Nausea And Vomiting ??? Meperidine MoCA score: Visuospatial/executive:5/5 Namin/3 Encodin, 5 out of 5 Attention: 5/6 (-1 DSF) Language: -2 repetition, -1 for 10 F words named (need 11 for the point) Abstraction: 2/2 Delayed Recall: 3/5 (+2 with cues) Orientation: 5/6 (off by one on the date) Cerad word list memory showed good encoding (5, 8, 7 [each out of 10]), poor recall at 5 minutes (3/10), and intact recognition (9/10 with 0 false positives) giving the patient a corrected score of 9. Word fluency was borderline impaired (mildly) for letters (27) but normal for categories (41). [place] [employer] A was normal at 15 seconds. [place] [employer] B was normal at 55 seconds, with 0 errors. BNT short form performed: able to name 12/15 items. Called the palette paint, the sphinx the Irish thingy, and the tripod easel. Ran out of time for remainder of neurological examination as she had many questions and concerns. Impression/recommendations: This informal office cognitive testing reveals deficits in recall memory and phonemic fluency (both frontally mediated tasks), naming, and attention (interestingly, her digit span backwards was intact, but digit span forwards was impaired, and this can be seen in depression). Given the length of time her symptoms have been going on, it's not clear to me that she has a neurodegenerative dementia. Additionally, this pattern of cognitive testing is not consistent with AD. A frontally mediated amnestic pattern can be seen in patients with depression/anxiety, sleep apnea, multiple medical problems (diabetes), subcortical/white matter ischemic disease, polypharmacy, and other reversible causes of memory problems (thyroid disease, B12 deficiency). Because of her youngage, will pursue neuroimaging. I will see her back very soon after the MRI is performed. 90 minuteswere spent with Ms Benoit answering her questions and on counseling. documented in this encounter Plan of Treatment Upcoming Encounters Date Type Department Care Team (Late st Contact Info) Description 02/19/2025 9:00 AM EDT TH Visit (TeleHealth) [place] [address] Wyatt Higgins MD [facility] [place] [address] documented as of this encounter Results * MRI brain WO [...] this encounter Visit Diagnoses Diagnosis Memory loss Memory loss documented in this encounter Care Teams Supervisor [employer] Relationship Specialty Start Date End Date Nanda Read MD [facility] D [address] [place] [address] PCP - General 09/14/10 06/06/18 documented as of this encounter
--- OUTSIDE RECORDS SUMMARY | 2024-05-15 11:13 | XMS_ITS | Encounter Summary ---
Author Organization [facility] Address [facility] [place] [address] Care Team Providers Care Coach Wirer Name Role Phone Nanda Read MD Primary Care Provider [phone] Reason for Visit * Auth/Cert Specialty Diagnoses / Procedures Referred By Patricio monsivais Referred To Contact Diagnoses preoperative bariatric surgery, history of gastric ulcers and hiatal herni. rule out upper GI pathology and H pylori Procedures PRO UPPER GI ENDOSCOPY, DIAGNOSTIC EGD, UPPER GI ENDOSCOPY Referral ID Status Reason Start Date Expiration Date Visits Re quested Visits Authorized [id number] 1 1 Encounter Details Date Type Department Care Team (Late st Contact Info) Description 11/04/2015 11:15 AM EST - 11/04/2015 11:45 AM EST [place] [address] Kisha Doss MD [facility] [place] [address] EGD, UPPER GI ENDOSCOPY (WRVU 2.09) Social History Tobacco Use Types Packs/Day Years [...] better as expected. Monday-Monday Same Day Endo [phone] [id number] Otherwise contact [phone] and ask to speak to the vegetable cutter trombone slide assembler Follow-up care is a [place] part of [...] 1/2 mL 30 x 5/16 Syrg by [facility]Non-Drug; Combo Route) route 2 times daily. Using [...] AM EDT TH Visit (TeleHealth) [place] [address] Wyatt Higgins MD [facility] DR [place]UR[place] [address] documented as of this encounter Procedures Procedure [...] (11/04/2015 11:38 AM EST) FINAL DIAGNOSIS (AP) [id number] ? Location: The signing pathologist has (i) [...] Five, averaging 0.2 cm. Tissue Description: Soft, russell-pink tissue. Sections/Processi ng: (T1) ??ejr 11/05/2015 11:24 AM EST [facility] 11/04/2015 11:3 8 AM EST Kisha Doss MD PATHOLOGY/CYTOLOGY O RDERABLES Performing Organization Address City/State/[facility] Co de Phone Number [facility] [address] * Specimen to Pathology (surgical or derm) (11/04/2015 11:38 AM EST) AP Specimen 11/04/2015 11:3 8 AM EST 11/04/2015 11:38 AM EST Narrative [facility] - 11/04/2015 11:38 AM EST Specimen requisition ordered. ??Separate Pathology report to follow Kisha Doss MD PATHOLOGY/CYTOLOGY O RDERABLES [facility] * POCT Glucose (11/04/2015 11:01 AM EST) POC Glucose 144 65 - 199 mg/dL [facility] Comment: Supplemental ranges: <140 mg/dL before meals <180 mg/dL all other times of the day Blood specimen (specimen) 11/04/2015 11:01 AM EST 11/04/2015 11:01 AM EST Kisha Doss MD POINT OF CARE TEST O RDERABLES [facility] * POCT Fingerstick Glucose (11/04/2015) POC Glucose [...] Mon11/04/15 at 1152, Endoscopy (Day of Procedure) 1102 (New Bag - Prov ider: Saadia Hamilton RN) documented in this encounter Care Teams Coach Wirer Relationship Specialty Start Date End Date Nanda Read MD [facility] [address] [place] [address] PCP - General 09/14/10 06/06/18 documented as of this encounter
--- OUTSIDE RECORDS SUMMARY | 2024-05-15 11:13 | XMS_ITS | Encounter Summary ---
Author Organization [facility] [place] [address] Care Team Providers Care Staff Forester Name Role Phone Nanda Read MD Primary Care Provider [phone] Encounter Details Date Type Department Care Team (Late st Contact Info) Description 09/22/2014 Telephone [place] [address] Cathy Dillon, DIRECTOR COUNCIL ON AGING [facility] [place] [address] Social History Tobacco Use Types Packs/Day Years [...] * Telephone Encounter - Cathy Dillon - 09/22/2014 4:40 PM EST I returned Martha's call- she wanted to know how bariatric surgery affected her diabetes. I advised her that diabetes type 2 often improves after surgery, better outcomes with gastric bypass and healthy diet. Her case was reviewed at a previous team meeting in 2009, and she was advised to have a sleeve due to esophagitis Plan: most recent EGD done in 2011 will be reviewed at next team meeting. documented in this encounter Plan of Treatment Upcoming Encounters Date Type Department Care Team (Late st Contact Info) Description 02/19/2025 9:00 AM EDT TH Visit (TeleHealth) [place] [address] Wyatt Higgins MD [facility] [place] [address] documented as of this encounter Visit Diagnoses Not on filedocumented in this encounter Care Teams Staff Forester Relationship Specialty Start Date End Date Nanda Read MD [facility] [address] [place] [address] PCP - General 09/14/10 06/06/18 documented as of this encounter
--- OUTSIDE RECORDS SUMMARY | 2024-05-15 11:13 | XMS_ITS | Encounter Summary ---
Author Organization [facility] [place] [address] Care Team Providers Care Rn Hematology Name Role Phone Nanda Read MD Primary Care Provider [phone] Encounter Details Date Type Department Care Team (Late st Contact Info) Description 08/17/2015 Notes [place] [address] Cathy Dillon, PASTEURIZER [facility] [place] [address] Social History Tobacco Use Types Packs/Day Years [...] as of this encounter Progress Notes * Cathy Dillon - 08/17/2015 3:18 PM EDT Bariatric Surgery Program Pre-visit Chart Review Chart review was done. ____ all necessary information has been received/ is available. Chart review is complete. No further information is needed. Appointments will be scheduled ____ Initial appointments will be scheduled. The following information is needed: __x_ Initial appointments cannot be made at the current time because the following information is needed: Nutrition __x_ Supervised nutrition counseling visits x 3, as required by insurer, must contain pertinent information contained in guideline previously given to patient. We received hand written notes that aredifficult to read and do not appear to contain the needed information. Sleep Center: _x__ a Sleep Center evaluation should be considered Lab __x_ non-fasting labwork can be done on day of initial visit documented in this encounter Plan of Treatment Upcoming Encounters Date Type Department Care Team (Late st Contact Info) Description 02/19/2025 9:00 AM EDT TH Visit (TeleHealth) [place] [address] Wyatt Higgins MD [facility] [place] [address] documented as of this encounter Visit Diagnoses Not on filedocumented in this encounter Care Teams Rn Hematology Relationship Specialty Start Date End Date Nanda Read MD [facility] D [address] [place] [address] PCP - General 09/14/10 06/06/18 documented as of this encounter
--- OUTSIDE RECORDS SUMMARY | 2024-05-15 11:13 | XMS_ITS | Encounter Summary ---
Author Organization [facility] [place] [address] Care Team Providers Care Ekg Tech Name Role Phone Nanda Read MD Primary Care Provider [phone] Reason for Visit * Reason Onset Date Comments Other 07/16/2013 Encounter Details Date Type Department Care Team (Late st Contact Info) Description 07/16/2013 Telephone [place] [address] Julio Cesar Wright MD [facility] [place] [address] Other Social History Tobacco Use Types Packs/Day [...] Telephone Encounter - Preeti Gonzalez RN - 07/16/2013 4:46 PM EDT Pt calling to question the letter she received from Dr Viera regarding her genetic testing. She reiterated that she would like to know how long it will take until she is bed bound. She notes that peripheral neuropathy is a progressive disease but no one will tell her what is going to happen to her as she has declined so rapidly in just 5 years since diagnosis. We have discussed this in the past, advised that there is no way to predict the decline of each pt. She has diabetes, quite out of control as her most recent A1c was 9.0. She is advised that controlling her diabetes if very important. Using her cane and removing obstacles from her path to prevent falls. Care with bathing ie water temperature, as her sensation is impaired and she does not want to burn herself. Healing is a problem with circulatory problems and even more so with diabetes. Also enc not to cut her own toenails and to use care when cutting her fingernails if sensation is impaired. Advised that I am sure she is frustrated. She would like to know what Dr Viera might add. * Telephone Encounter - Vandana Reno - 07/16/2013 3:40 PM EDT Patient still has a few more questions about the results of her EMG that was done on 05/[address] Wright. Please call patient back. documented in this encounter Plan of Treatment Upcoming Encounters Date Type Department Care Team (Late st Contact Info) Description 02/19/2025 9:00 AM EDT TH Visit (TeleHealth) [place] [address] Wyatt Higgins MD [facility] [place] [address] documented as of this encounter Visit Diagnoses Not on filedocumented in this encounter Care Teams Ekg Tech Relationship Specialty Start Date End Date Nanda Read MD [facility] [address] [place] [address] PCP - General 09/14/10 06/06/18 documented as of this encounter
--- OUTSIDE RECORDS SUMMARY | 2024-05-15 11:13 | XMS_ITS | Encounter Summary ---
Author Organization [facility] [place] [address] Care Team Providers Care Nursery Manager Name Role Phone Nanda Read MD Primary Care Provider Reason for Visit * Reason Comments Pain Management bilateral leg and fo ot Encounter Details Date Type Department Care Team (Late st Contact Info) Description 07/01/2014 12:15 PM EDT Office [place] [address] Alvarez Ayala MD [facility] [place] [address] Peripheral neuropathy-severe generalized (Primary Dx) Discharge Disposition: Home Social History Tobacco Use [...] Sign Reading Time Taken Comments Blood Pressure 138/65 07/01/2014 1:00 PM EDT Pulse 96 07/01/2014 1:00 PM EDT Temperature 36.9 ??C (98.4 ??F) 07/01/2014 1:00 PM ED T Respiratory Rate 16 07/01/2014 1:00 PM EDT Oxygen Saturation 99% 07/01/2014 1:00 PM EDT Inhaled Oxygen Concentration - - Weight 112.9 kg (249 lb) 07/01/2014 1:00 PM EDT Height 160 cm (5' 3) 07/01/2014 1:00 PM EDT Body Mass Index 44.11 07/01/2014 1:00 PM EDT documented in this encounter Progress Notes * Alvarez Ayala MD - 07/01/2014 1:59 PM EDT I am seeing Ms. Benoit at the request of Dr. Nanda Read for recommendations regarding her chronic pain. Thank you so much Nanda and it is always a pleasure to hear from you, for allowing me to participate in the care of Ms. Martha Benoit who as you know is a 48-year-old woman with a chief complaint of pain in her bilateral lower extremities. Thanks also for your notes and letter. She has seen Luis Wright and other providers. She suffers from peripheral neuropathy, the etiology is somewhat unclear, although she does have very poorly controlled diabetes mellitus with hemoglobin A1cs pretty consistently in the 9s. She was exposed to pesticides when she was a young girl and her sister had similar or identical symptoms and is now from whatever the disease she had was and Ms. Benoit believes that it was this pesticide exposure that has caused her to have the problems that she has had. She had an MRI of her thoracic spine and an MRI of her lumbar spine and I have reviewed both. 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 This became important because she was saying that no one was listening to her and her son who accompanied her today stated that she probably had a tumor in her spine that everybody has missed and I have reassured them that this is not the case. She has a tender spot, which is about 2 cm above the coccyx and she can sometimes feel like a bump there, but there is nothing abnormal on my exam today about this area except a very minimal bout of tenderness and as I said, the sacrum is even imaged in her MRI and appears normal. Her peripheral neuropathy symptoms are knee high approximately on the right and up to the high thigh on the left. Her pain on average is a 5 on a 0 to 10 verbal numerical scale. At its least, it is a 2; at its most, it is a 9. She also has a tingling sensation in her fingers. Aside from what I have mentioned, I did not examine her further. She is articulate and clear headed, very strong willed. She displays a normal range of emotion. She has normal hearing to finger rub. Her sclerae are nonicteric. There were no abnormal lesions noted in the limited exam of her back. She is using gabapentin 600 mg at bedtime. She is using Percocet 10-mg tablets every four hours for a total of 40 mg per day and she tells me that the real purpose of her visit is that she wants to go up to 60 mg a day. She has not tried medical cannabis. She has no prior history of alcoholism or drug abuse. She does not smoke cigarettes. She has never been incarcerated. She is disabled. Her family history is negative for alcoholism and drug abuse. She has never had DUIs etc. ASSESSMENT: Neuropathic pain, peripheral neuropathy, opioid dependent. PLAN: We had a very lengthy visit actually and we spent an hour together, 50 minutes of which was spent with my explaining certain things to her. I explained to her that the risks of opioid use intermediate include addiction, constipation, sedation, sexual dysfunction, fracture, osteoporosis, and possibly risk of certain types of cancer and infections and she understands this. I have explained to her that we typically do not treat people with opioids until they have had an adequate trial with both antidepressants and anticonvulsants. I also added that she is on a very low dose of gabapentin and that the target dose is typically 1200 mg three times a day. She is not on any antidepressants and I have briefly discussed with her the use of duloxetine. She states that she understands all this and she understands the risks, but she feels like nothing has worked as well as the oxycodone and she just wants to stay on the oxycodone. She states she has never tried marijuana, but her children try to convince her that she should try it and she may give it a try. I have expressed my opinion to her that it is probably safer than the opioids that she is using right now. We also discussed her weight and that she could benefit from losing weight and we discussed again in detail the fact that she needs to have her diabetes better controlled. The ultimate conclusion, however, Nanda is that in my opinion, it is fine to treat her with 60 mg a day rather than 40 mg a day. I have added that I would not go higher than 60 mg. I have added that if she comes back to see me in a year and wants 100 mg, then I am going to respond by saying that she needs to try the gabapentin and the Cymbalta before I will go any higher on her opioids. I enjoyed meeting her. Thank you so much for sending her. documented in this encounter Plan of Treatment Upcoming Encounters Date Type Department Care Team (Late st Contact Info) Description 02/19/2025 9:00 AM EDT TH Visit (TeleHealth) [place] [address] Wyatt Higgins MD [facility] [place] [address] documented as of this encounter Visit Diagnoses Diagnosis Peripheral neuropathy-severe generalized- Primary Unspecified hereditary and idiopathic peripheral neuropathy documented in this encounter Care Teams Nursery Manager Relationship Specialty Start Date End Date Nanda Read MD [facility] [address] [place] [address] PCP - General 09/14/10 06/06/18 documented as of this encounter
--- OUTSIDE RECORDS SUMMARY | 2024-05-15 11:13 | XMS_ITS | Encounter Summary ---
[facility] [place] [address] Care Team Providers Care Director Security Management Name Role Phone Nanda Read MD Primary Care Provider Reason for Visit * Reason Comments Skin Lesion Encounter Details Date Type Department Care Team (Late st Contact Info) Description 12/29/2014 2:30 PM EDT Office Visit Dermatology at [address] [place] [address] Galdino Gilliland MD [address] [place] [address] DERMATOLOGY [place], [place] [id number] Seborrheic keratosis Discharge Disposition: Home Social History Tobacco Use [...] Progress Notes * Galdino Gilliland MD - 12/29/2014 2:48 PM EDT Problem: Right forehead lesion. Martha follows up and has returned from her trip and now would like to have a biopsy performed. Physical examination reveals the flat-topped papule again with an increased dyana-sized opening, 6 mm total diameter on the right forehead. The left medial canthal lesion has flattened down. Assessment and Plan: 1. Rule out seborrheic keratosis versus SCCA/BCCA, right forehead. a. After obtaining informed consent shave biopsy was obtained from the right forehead site. Submitted for pathologic analysis. Light C and D performed. b. Wound care instructions and supplies given. c. Recommend I see her again p.r.n. for new lesions/concerns. 2. Right medial canthal lesion. a. Probably represents a seborrheic keratosis. b. Significantly smaller. c. We will defer biopsy today at patient's request unless it again begins to grow. COPY: Nanda Read M.D. documented in this encounter Plan of Treatment Upcoming Encounters Date Type Department Care Team (Late st Contact Info) Description 02/19/2025 9:00 AM EDT TH Visit (TeleHealth) [place] [address] Wyatt Higgins MD [facility] [place] [address] documented as of this encounter Visit Diagnoses Diagnosis Seborrheic keratosis Other seborrheic keratosis documented in this encounter Care Teams Director Security Management Relationship Specialty Start Date End Date Nanda Read MD [facility] [address] [place] [address] PCP - General 09/14/10 06/06/18 documented as of this encounter
--- OUTSIDE RECORDS SUMMARY | 2024-05-15 11:13 | XMS_ITS | Encounter Summary ---
[place] [address] Care Team Providers Care Fur Tinter Name Role Phone Nanda Read MD Primary Care Provider [phone] Encounter Details Date Type Department Care Team (Late st Contact Info) Description 03/24/2015 Tele[place] [phone] Tracy Tavarez LPN Social History Tobacco Use [...] Telephone Encounter - Tracy Tavarez LPN - 03/24/2015 4:12 PM EDT Message on endo nurse line from patient PA needed for shot Dr Reinoso wants me to go on R/c to patient. No answer. Message left on patient v/m that message will be forward to special education secretary. documented in this encounter Plan of Treatment Upcoming Encounters Date Type Department Care Team (Late st Contact Info) Description 02/19/2025 9:00 AM EDT TH Visit (TeleHealth) [place] [address] Wyatt Higgins MD [facility] [place] [address] documented as of this encounter Visit Diagnoses Not on filedocumented in this encounter Care Teams Fur Tinter Relationship Specialty Start Date End Date Nanda Read MD [facility] D [address] [place], [place] [address] PCP - General 09/14/10 06/06/18 documented as of this encounter
--- OUTSIDE RECORDS SUMMARY | 2024-05-15 11:13 | XMS_ITS | Encounter Summary ---
Author Organization [facility] [place] [address] Care Team Providers Care Net Trainer Name Role Phone Nanda Read MD Primary Care Provider Reason for Visit * Reason Comments Medication Refill Encounter Details Date Type Department Care Team (Late st Contact Info) Description 11/01/2013 [place] [address] Judith Reinoso MD [facility] [place] [address] Social History Tobacco Use Types Packs/Day Years [...] AM EDT TH Visit (TeleHealth) [place] [phone] Wyatt Higgins MD [facility] [place] [address] documented as of this encounter Visit Diagnoses Not on filedocumented in this encounter Care Teams Net Trainer Relationship Specialty Start Date End Date Nanda Read MD [facility] [address] [place] [address] PCP - General 09/14/10 06/06/18 documented as of this encounter
--- OUTSIDE RECORDS SUMMARY | 2024-05-15 11:13 | XMS_ITS | Encounter Summary ---
Author Organization [facility] [place] [address] Care Team Providers Care Fight Manager Name Role Phone Nanda Read MD Primary Care Provider [phone] Reason for Visit * Reason Comments Diabetes Encounter Details Date Type Department Care Team (Late st Contact Info) Description 05/23/2013 3:05 PM EDT Office [place] [address] Judith Reinoso MD [facility] [place] [address] Type II or unspecified type diabetes mellitus without mention of complication, uncontrolled (Primary Dx); Obesity; Proximal muscle weakness Discharge Disposition: Home Social History Tobacco Use [...] Sign Reading Time Taken Comments Blood Pressure 143/71 05/23/2013 3:12 PM EDT Pulse 93 05/23/2013 3:12 PM EDT Temperature - - Respiratory Rate - - Oxygen Saturation - - Inhaled Oxygen Concentration - - Weight 112.1 kg (247 lb 3.2 oz) 05/23/2013 3:12 PM EDT Height - - Body Mass Index 44.49 05/22/2013 2:42 PM EDT documented in this encounter Progress Notes * Judith Reinoso MD - 05/23/2013 3:15 PM EDT Endocrine Clinic Name: Martha Benoit : 1965 Date: 05/23/2013 PCP: NANDA READ MD Provided by: Judith Reinoso MD Reason for visit: Follow-up diabetes Diabetes treatment regimen: U-500 0.12 ml in am and pm. Humalog sliding scale p.r.n for correction of high BG>150 based on 1 unit for every 10 BG ratio. Also, metformin 500 mg tid and glipizide 10mg bid FSBG: average 180 over the past 2 weeks but not checking much lately Most recent HA1c: 9.0% today (was 8.9% on 05/26/12) Hypoglycemia during the interval time: none Diet: low fat/low carb diet Exercise: walking Complications: no changes during the interim. Prevention: same as last visit recently . She is frustrating from worsening peripheral neuropathy with LE weakness, seen by neurologist with more testing for ? Autoimmune or other cause of neuropathy today. Her vitamin D was very low at 18-> 38 better after increasing vitamin D 50.000 iu 2x/week. She missed follow-up since last year andwill need lots of labs today for her annual DM testings (no recent lab per pt until she saw neurologist today). still having some CP occasionally without SOB. No GI issues, leg swelling or foot ulcer. Denies any changes in vision. ROS: Please see HPI, all others negative Patient Active Problem List Diagnoses Code ??? History of kidney stones-bilateral V13.01 ??? Cervical cancer 180.9 ??? Chronic foot pain-s/p heel spur surgeries 729.5 ? ? Diabetic retinopathy & neuropathy 250.50 ??? Intestinal metaplasia of gastric mucosa-lower stomach-antrum 537.89 ??? Obesity 278.00 ??? Peripheral neuropathy-severe generalized 356.9 ??? Vitamin D deficiency 268.9 ??? DM renal manif type II, uncontrolled 250.42 ??? Peripheral autonomic neuropathy due to diabetes mellitus 250.60 ??? Unspecified hypothyroidism 244.9 Current Outpatient Prescriptions on File Prior to Visit Medication Sig Dispense Refill ??? gabapentin (NEURONTIN) 100 mg capsule Take [...] Take 40 mg by mouth daily. ??? insulin regular CONCENTRATE U-500 (HUMULIN R U-500 CONCENTRATED) 500 unit/mL Soln Inject subcutaneously 2 times daily. 0.14 ML in AM (14 Unit marques on syringe), 0.12 ML PM (12 unit marques on syringe) 20 mL 4 ??? levothyroxine (SYNTHROID) 25 mcg tablet Take 1 tablet by mouth daily. 90 tablet 4 ??? folic acid (FOLVITE) 1 mg tablet [...] 1/2 mL 30 x 5/16 Syrg by [facility] [place].(Non-Drug; Combo Route) route 2 [...] ??? Drug Use: No ??? Sexually Active: None Other Topics Concern ??? None Social History Narrative ??? None FAMILY HISTORY Family History Problem Relation Age of Onset ??? Diabetes ??? High Cholesterol ??? Hypertension ??? Stroke ??? Obesity ??? * kidney stone ??? Psoriasis ??? * congenital malformation in her son Physical exam BP 143/71 Pulse 93 Wt 112.129 kg (247 lb 3.2 oz) Appearance: Obese, pleasant, NAD, walking with walker HEENT: PERRLA, EOMI Neck: no goiter or lymphadenopathy Abdomen: benign, obese Ext: no pitting edema no foot ulcer Neuro:+LE weakness, depressed reflexes Recent Results (from the past 72 hour(s)) MISCELLANEOUS LAB REQUEST Component Value Range [facility] Lab Result Request received in lab. TSH Component Value Range TSH 1.74 0.27 - 4.20 mcIU/mL HEMOGLOBIN A1C Component Value Range Hemoglobin A1C 9.0 (*) 4.3 - 6.1 % Est Avg Gluc 212 VITAMIN B12 Component Value Range Vitamin B-12 427 207 - 974 pg/mL Assessment: Diabetes Type II - suboptimal control with A1c 8.9-9.0% range over the past year, still having c-peptide from own insulin production but not enough for her need. She has insulin resistance and required U-500 0.12 ml (60u) bid along with 2 oral agents. She used to respond to victoza but had N/V withthe high dose, so I'd encourage her to retry it since it will help keep BG and wt down for her. will need to keep it at 7% range soon for her worsening neuropathy. Complication Risk Status: complications present +peripheral neuropathy Also, treated for refractory vitamin D deficiency with lowered vitamin D down to 18 when she missedthe medation and then better at 38 after she has been using vitamin D 50,000 iu 2x/week. She missedvisit since last year, so we need to check all her annual DM labs and vitD levels today. Plan: 1. Medication: Adjustment of diabetes treatment regimen: To start victoza pen 0.6 mg sc qam for 7 days and then titrate the dose up slowly if tolerated to 1.2 and then 1.8 mg qs qam. To reduce U-500 insulin from 0.12 to 0.1 ml bid and allow her to titrate the dose to keep BG 90-180range. To check BG more often before each meal and at bedtime and to use Humalog pen sliding scale as needed(1u:10-20 BG ratio). To cont low dose LT4 25 mcg qd. To cont vitamin D 50,000 iu 2x/week and will let he know the pending test result soon if she needs to taper the dose down To continue all other medications and healthy diet to keep wt down 2. Monitoring: to check FSBG before each meal and at bedtime. Target BG 90-150 while fasting and 80-180 pre-meal during daytime 1-2 h post meal below 200. Target A1c < 7% for this patient. 3. Diet and exercise: low fat/controlled carb diet & exercise as tolerated to keep weight down or at least stable. Patient will keep log of blood glucose and insulin used for review at next visit. 4. Lab: Already checked lab today as above and will let pt know all the pending results soon. 5. RTC: Next visit in 4 weeks to see if she responds to victoza and adjust insulin as indicated. She hopes to be able to cut back insulin to off since it caused wt gain for her. We have reviewed our plan outlined above [...] Addendum Note - Judith Reinoso MD - 05/25/2013 10:14 PM EDTAddended by: JUDITH REINOSO on: 05/25/2013 10:14 PM Modules accepted: Orders documented in this encounter Plan of Treatment Upcoming Encounters Date Type Department Care Team (Late st Contact Info) Description 02/19/2025 9:00 AM EDT TH Visit (TeleHealth) [place] [address] Wyatt Higgins MD [facility] [place] [address] documented as of this encounter Visit Diagnoses Diagnosis Type II or unspecified type diabetes mellitus without mention of complication, uncontrolled- Primary Obesity Obesity, unspecified Proximal muscle weakness Muscle weakness (generalized) documented in this encounter Care Teams Fight Manager Relationship Specialty Start Date End Date Nanda Read MD [facility] [address] [place] [address] PCP - General 09/14/10 06/06/18 documented as of this encounter
--- OUTSIDE RECORDS SUMMARY | 2024-05-15 11:13 | XMS_ITS | Encounter Summary ---
Author Organization [facility] [place] [address] Care Team Providers Care Technology Project Manager Name Role Phone Nanda Read MD Primary Care Provider Reason for Visit * Reason Comments Medication Refill Encounter Details Date Type Department Care Team (Late st Contact Info) Description 10/29/2013 Ref[place] [address] Judith Reinoso MD [facility] [place] [address] Social History Tobacco Use Types Packs/Day Years [...] Telephone Encounter - Tracy Tavarez LPN - 10/29/2013 11:24 AM EST Per pharmacist patient asked that this Rx go to her pcp. documented in this encounter Plan of Treatment Upcoming Encounters Date Type Department Care Team (Late st Contact Info) Description 02/19/2025 9:00 AM EDT TH Visit (TeleHealth) [place] [address] Wyatt Higgins MD [facility] [place] [address] documented as of this encounter Visit Diagnoses Not on filedocumented in this encounter Care Teams Technology Project Manager Relationship Specialty Start Date End Date Nanda Read MD [facility] [address] [place] [address] PCP - General 09/14/10 06/06/18 documented as of this encounter
--- OUTSIDE RECORDS SUMMARY | 2024-05-15 11:13 | XMS_ITS | Encounter Summary ---
[place] [address] Care Team Providers Care School Bus Driver/Mechanic Name Role Phone Nanda Read MD Primary Care Provider [phone] Reason for Visit * Reason Onset Date Comments Medication Problem 03/31/2015 Encounter Details Date Type Department Care Team (Late st Contact Info) Description 03/31/2015 Telephone [place] [address] Madelin Gunn tomato grader Problem Social History Tobacco Use Types Packs/Day [...] Telephone Encounter - Judith Reinoso MD - 04/01/2015 11:10 AM EDT Talked to pt and she stated that her PCP used to prescribe Byetta for her on 04/29/08 but she could not tolerate it. We re-challenge Dl when I saw her on 05/04/09 but again she had lots of GI side effects and could not tolerate it. Will fax our documentation and make sure she gets Bydureon as prescribed. Thanks. Judith Reinoso MD * Telephone Encounter - Madelin Gunn RN - 04/01/2015 10:02 AM EDT Ok to change to Byetta 5 mg sc bid instead of bydureon then. Judith Spoke with Martha. She states she doesn't understand why she is being prescribed this. She feels sheknows she has taken this in the past and questions why she would take it again if she couldn't tolerate it. I explained to Martha that we do not have record of her taking it, she states it may have been through her pcp, let her know that if we have documentation of previous trial and failure of Byetta then we can submit this to the insurance company to have Bydureon covered. She states she will call her pharmacist and then where it was prescribed if indeed it was. * Telephone Encounter - Madelin Gunn RN - 03/31/2015 2:57 PM EDT Martha calls nurse triage line regarding insurance company denial of BYDUREON PEN INJECTORS . States she believes she has been on Byetta in the past. Unable to find this in medical record. Let Martha know Dr. Reinoso is out today, but will discuss this with her tomorrow morning. Martha has questions about the cost of Byetta also. Will find out this information and return Martha's call. documented in this encounter Plan of Treatment Upcoming Encounters Date Type Department Care Team (Late st Contact Info) Description 02/19/2025 9:00 AM EDT TH Visit (TeleHealth) [place] [address] Wyatt Higgins MD [facility] [place] [address] documented as of this encounter Visit Diagnoses Not on filedocumented in this encounter Care Teams School Bus Driver/Mechanic Relationship Specialty Start Date End Date Nanda Read MD [facility] D [address] [place] [address] PCP - General 09/14/10 06/06/18 documented as of this encounter
--- OUTSIDE RECORDS SUMMARY | 2024-05-15 11:13 | XMS_ITS | Encounter Summary ---
[place] [address] Care Team Providers Care Cotton Ball Bagger Name Role Phone Nanda Read MD Primary Care Provider [phone] Reason for Visit * Reason Onset Date Comments Prior Authorization 03/25/2015 Encounter Details Date Type Department Care Team (Late st Contact Info) Description 03/25/2015 Telephone [place] [address] Mckenzie Butt Prior Authorization Social History Tobacco Use Types Packs/Day Years [...] encounter Miscellaneous Notes * Telephone Encounter - Mckenzie Butt - 03/25/2015 3:17 PM EDT Medication Prior Authorization ZACH Medication name/dose/directions: BYDUREON PEN INJECTORS Rationale for request: DM Health plan: [place] MEDICAID Authorizing international account representative name: MCKENZIE Faxed to health plan on: 03/25/15 Health plan decision: DENIED- PT MUST TRY AND FAIL OR NOT TOLERATE BYETTA Quantity approved: Authorization number: [id number] Start date: 04/02/15 End date: 04/02/16 Patient notified? NO Pharmacy notified? YES documented in this encounter Plan of Treatment Upcoming Encounters Date Type Department Care Team (Late st Contact Info) Description 02/19/2025 9:00 AM EDT TH Visit (TeleHealth) [place] [address] Wyatt Higgins MD [facility] [place] [address] documented as of this encounter Visit Diagnoses Not on filedocumented in this encounter Care Teams Cotton Ball Bagger Relationship Specialty Start Date End Date Nanda Read MD [facility] [address] [place] [address] PCP - General 09/14/10 06/06/18 documented as of this encounter
--- OUTSIDE RECORDS SUMMARY | 2024-05-15 11:13 | XMS_ITS | Encounter Summary ---
Author Organization [facility] [place] [address] Care Team Providers Care Airdrop Systems Technician Name Role Phone Nanda Read MD Primary Care Provider [phone] Encounter Details Date Type Department Care Team (Late st Contact Info) Description 07/11/2014 3:15 PM EDT [place] [address] Korina Cho MD [facility] [place] [address] Memory loss (Primary Dx) Discharge Disposition: Home Social History [...] as of this encounter Progress Notes * Korina Cho MD - 07/11/2014 4:22 PM EDT 48 year old female with poorly controlled diabetes, an acquired and possibly also inherited peripheral neuropathy who presents for follow up of memory loss and to go over the results of her brain MRIperformed today. In brief summary, she reported an 8 year history of difficulty with short term memory. In office cognitive testing revealed deficits in recall memory and phonemic fluency (both frontallymediated tasks), naming, and attention (interestingly, her digit span backwards was intact, but digit span forwards was impaired, and this can be seen in depression). Medical history: Cervical cancer Diabetes Diabetic retinopathy [...] History Narrative ??? No narrative on file Impression/recommendations: 48 year old female with poorly controlled diabetes, an acquired and possibly also inherited peripheral neuropathy who presents for follow up of memory loss and to go over the results of her brain MRI performed today. Brain MRI was entirely normal (no atrophy at all), very minimal subcortical small vessel disease. Since she has had an 8 year history of memory loss, I doubt at this point that she has a neurodegenerative dementia. Because of her family history and poor general health, she is certainly at risk for dementia in future years, but there's no evidence of a neurodegenerative disorder presently. The pattern of cognitive testing she displayed can be seen in patients with depression/anxiety, sleep apnea, multiple medical problems (diabetes). Her sleep is poor, and os I strongly recommended a sleep study (I explained that untreated sleep apnea can impair memory and is a risk factor for hypertension, vascular disease, etc). She refused a sleep study. Although some of her medications can impair memory (baclofen, neurontin, narcotics), she does have significant pain (especially at night), and so I recommended that she increase her night time dose of neurontin to 600mg QHS (hopefully will help with pain and sleep consolidation). I recommended physical therapy, but she was not interested in this either. PCP could consider a referral for cognitive behav ioral therapy as the patient has poor motivation, depressive symptoms and cognitive complaints. Thank you for this consultation, I can see her back on an as needed basis. 45 minutes were spent with the patient and all of this time was spent going over the results of edinin MRI, her informal cognitive testing, as well as on supportive counseling, and on education about the etiologies of her memory loss. We also spent a good deal of time discussing risk reduction and risk factor management. documented in this encounter Plan of Treatment Upcoming Encounters Date Type Department Care Team (Late st Contact Info) Description 02/19/2025 9:00 AM EDT TH Visit (TeleHealth) [place] [address] Wyatt Higgins MD [facility] [address] documented as of this encounter Visit Diagnoses Diagnosis Memory loss- Primary documented in this encounter Care Teams Airdrop Systems Technician Relationship Specialty Start Date End Date Nanda Read MD [facility] [address] [place] [address] PCP - General 09/14/10 06/06/18 documented as of this encounter
--- OUTSIDE RECORDS SUMMARY | 2024-05-15 11:13 | XMS_ITS | Encounter Summary ---
Author Organization [facility] [place] [address] Care Team Providers Care Loan Servicing Officer Name Role Phone Nanda Read MD Primary Care Provider [phone] Encounter Details Date Type Department Care Team (Latest Contact Info) Description 10/09/2014 Multidisciplinary Ca re Committee [place] [address] Cathy Dillon, WAREHOUSE TEAM MEMBER [facility] [place] [address] Social History Tobacco Use Types Packs/Day Years [...] encounter Progress Notes * Cathy Dillon - 10/08/2014 8:35 AM EST BARIATRIC SURGERY PROGRAM SURGICAL TEAM CASE REVIEW Martha Benoit is a 48 y.o. year-old female. Her primary care physician is NANDA READ MD: Bariatric Surgery Program introductory meeting attendance: + Evaluation by a member of the [facility] [place] previously: no Staff present at today's meeting: Allie Emerson MD, Yvonne Menchaca MD, Cathy Dillon APRN, Allie AMIN RD Reason for presentation: discuss bariatric procedure, patient requested RNY GB, previous team discussion sleeve recommendation Patient Active Problem List Diagnosis Code ??? [...] mellitus 250.60, 337.1 ??? Unspecified hypothyroidism 244.9 Past Surgical History Procedure Laterality Date ??? Created by interface excision of a left foot heel spur in 11/2004 Procedure Date: Nov 2004 ??? Created by interface PRK for hyperopic astigmatism OU in 06/2004 Procedure Date: Jun 2004 ??? Created by interface tubal ligation BL Procedure Date: Unknown ??? Upper gi endoscopy, exam 11/16/2011 UPPER GI ENDOSCOPY performed by ALISA RICHARDS at [facility] ??? Upper gi endoscopy, biopsy 11/16/2011 EGD WITH BIOPSY performed by AILSA RICHARDS at [facility] Plan of care: approved to proceed with evaluation for gastric bypass documented in this encounter Plan of Treatment Upcoming Encounters Date Type Department Care Team (Late st Contact Info) Description 02/19/2025 9:00 AM EDT TH Visit (TeleHealth) [place] [address] Wyatt Higgins MD [facility] [place] [address] documented as of this encounter Visit Diagnoses Not on filedocumented in this encounter Care Teams Loan Servicing Officer Relationship Specialty Start Date End Date Nanda Read MD [facility] [address] [place] [address] PCP - General 09/14/10 06/06/18 documented as of this encounter
--- OUTSIDE RECORDS SUMMARY | 2024-05-15 11:13 | XMS_ITS | Encounter Summary ---
[place] [address] Care Team Providers Care Roller Skate Repairer Name Role Phone Nanda Read MD Primary Care Provider Encounter Details Date Type Department Care Team (Late st Contact Info) Description 07/02/2014 Telephone [place] [phone] Benita Salazar LPN Social History Tobacco Use [...] Miscellaneous Notes * Telephone Encounter - Benita Monsalve LPN - 07/02/2014 8:29 AM EDT Received call from patient stating her after visit summary medication list was incorrect. She currently is taking Oxycodone Acetaminophen 5-325 two tablets four times daily. (see Dr. Waldron progressnote to confirm). I corrected her medication list. Also, requesting a [facility] password to set up an account. Sent her myd-H information via mail. documented in this encounter Plan of Treatment Upcoming Encounters Date Type Department Care Team (Late st Contact Info) Description 02/19/2025 9:00 AM EDT TH Visit (TeleHealth) [place] [address] Wyatt Higgins MD [facility] [place] [address] documented as of this encounter Visit Diagnoses Not on filedocumented in this encounter Care Teams Roller Skate Repairer Relationship Specialty Start Date End Date Nanda Read MD [facility] [address] [place] [address] PCP - General 09/14/10 06/06/18 documented as of this encounter
--- OUTSIDE RECORDS SUMMARY | 2024-05-15 11:13 | XMS_ITS | Encounter Summary ---
[place] [address] Care Team Providers Care Water Pumping Station Engineer Name Role Phone Nanda Read MD Primary Care Provider [phone] Encounter Details Date Type Department Care Team (Late st Contact Info) Description 03/10/2015 Telephone [place] [address] Tracy Tavarez LPN Social History Tobacco Use [...] Telephone Encounter - Tracy Tavarez LPN - 03/10/2015 4:02 PM EDT Martha Benoit - 03/09/15 - Please call labs as I ordered A1c, TSH and vit D too (not just urine microalb) >','<< Less Detail',event) href=[email or web address]:;><< Less Detail Please call labs as I ordered A1c, TSH and vit D too (not just urine microalb) Judith Reinoso MD Sent: MonMarch 09, 2015 9:19 AM To: Carolyn Vigil Endocrinology Nurse Message Please call labs as I ordered A1c, TSH and vit D too (not just urine microalb). I already tasks the girl that I'll need to see her again soon for annaul DM visit. Thanks. Judith Reinoso MD Called lab for results. Too be faxed. documented in this encounter Plan of Treatment Upcoming Encounters Date Type Department Care Team (Late st Contact Info) Description 02/19/2025 9:00 AM EDT TH Visit (TeleHealth) [place] [address] Wyatt Higgins MD [facility] [place] [address] documented as of this encounter Visit Diagnoses Not on filedocumented in this encounter Care Teams Water Pumping Station Engineer Relationship Specialty Start Date End Date Nanda Read MD [facility] [address] [place] [address] PCP - General 09/14/10 06/06/18 documented as of this encounter
--- OUTSIDE RECORDS SUMMARY | 2024-05-15 11:13 | XMS_ITS | Encounter Summary ---
Author Organization [facility] [place] [address] Care Team Providers Care Ash Pit Worker Name Role Phone Nanda Read MD Primary Care Provider [phone] Encounter Details Date Type Department Care Team (Latest Contact Info) Description 04/29/2014 External Results [place] [address] Judith Reinoso MD [facility] [address] [place] [address] Type II or unspecified type diabetes mellitus with neurological manifestations, uncontrolled(250.62); Unspecified vitamin D deficiency; Chronic fatigue Social History Tobacco Use Types [...] AM EDT TH Visit (TeleHealth) [place] [address] Wyatt Higgins MD [facility] [place] [address] documented as of this encounter Procedures Procedure Name Priority Date/Time Associated Diagnosis Comments EXTERNAL LAB RESULTS Routine 04/18/2014 TSH Routine 04/18/2014 Type II or unspecified type diabetes mellitus with neurological manifestations, uncontrolled(250.62) Unspecified vitamin D deficiency Chronic fatigue EXTERNAL LAB RESULTS Routine 04/15/2014 HEMOGLOBIN A1C Routine 04/15/2014 Type II or unspecified type diabetes mellitus with neurological manifestations, uncontrolled(250.62) Unspecified vitamin D deficiency Chronic fatigue documented in this encounter Results * (ABNORMAL) External Lab Results (04/18/2014) WBC 7.7(Externa l Lab) RBC 5.00(Glass Silverer al Lab) 4.00 - 5.20 Hemoglobin 14.5(Glass Silverer al Lab) 12.0 - 16.0 Hematocrit 43.0(Glass Silverer al Lab) 36.0 - 46.0 Platelets 296(Externa l Lab) 04/18/2014 Judith Reinoso MD CHEMISTRY ORDERAB LES * (ABNORMAL) TSH (04/18/2014) TSH 0.074(EXTER NAL/ABN) Blood specimen (specimen) 04/18/2014 Judith Reinoso MD CHEMISTRY ORDERAB LES * (ABNORMAL) External Lab Results (04/15/2014) Glucose Lvl 166(PADDING GLUER AL/ABN) BUN 11(Externa l Lab) Creatinine 0.40(EXTER NAL/ABN) Calcium 8.9(Glass Silverer al Lab) 8.7 - 10.7 Sodium 139(Glass Silverer al Lab) 137 - 147 Potassium 3.9(Glass Silverer al Lab) 3.4 - 5.3 Albumin 3.4(A) 3.5 - 5.0 Total Bilirubin 0.2(Glass Silverer al Lab) 0.1 - 1.4 Alk Phos 103(Glass Silverer al Lab) ALT 33(Externa l Lab) 7 - 35 AST 29(Externa l Lab) 13 - 35 Vitamin B-12 331.0(Exte rnal Lab) 04/15/2014 Nanda Read MD CHEMISTRY ORDERABLES * (ABNORMAL) Hemoglobin A1c (04/15/2014) Hemoglobin A1C 9.3(PADDING GLUER AL/ABN) Blood specimen (specimen) 04/15/2014 Judith Reinoso MD CHEMISTRY ORDERAB LES documented in this encounter Visit Diagnoses Diagnosis Type II or unspecified type diabetes mellitus with neurological manifestations, 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
--- OUTSIDE RECORDS SUMMARY | 2024-05-15 11:13 | XMS_ITS | Encounter Summary ---
Author Organization [facility] [place] [address] Care Team Providers Care Machine I Trimmer Name Role Phone Nanda Read MD Primary Care Provider Encounter Details Date Type Department Care Team (Latest Contact Info) Description 03/09/2015 External Results [place] [address] Judith Reinoso MD [facility] [place] [address] Type II or unspecified type diabetes mellitus with neurological manifestations, uncontrolled; Unspecified vitamin D deficiency; Chronic fatigue Social [...] AM EDT TH Visit (TeleHealth) [place] [address] Wyatt Higgins MD [facility] [address] NEUROLOGY DEPT. [place], [place] [address] documented as of this encounter Procedures Procedure Name Priority Date/Time Associated Diagnosis Comments EXTERNAL LAB CBC CMP THYROID RESULTS PANEL Routine 03/05/2015 U ALBUMIN/CRE RATIO Routine 03/05/2015 Type II or unspecified type diabetes mellitus with neurological manifestations, uncontrolled Unspecified vitamin D deficiency Chronic fatigue documented in this encounter Results * (ABNORMAL) CBC / CMP / Thyroid External Results (03/05/2015) Sodium 141(Elevator Constructor al Lab) 137 - 147 Potassium 4.5(Elevator Constructor al Lab) 3.4 - 5.3 Chloride 104(Elevator Constructor al Lab) 99 - 108 CO2 28(Externa l Lab) 22 - 29 BUN 12(Externa l Lab) Creatinine 0.50(EXTER NAL/ABN) Calcium 8.9(Elevator Constructor al Lab) 8.7 - 10.7 Total Protein 7.5(Elevator Constructor al Lab) 6.4 - 8.2 Albumin 3.9(Elevator Constructor al Lab) 3.5 - 5.0 Total Bilirubin 0.6(Elevator Constructor al Lab) 0.1 - 1.4 Bili, Direct 0.4(METAL FURNACE OPERATOR AL/ABN) 0.01 - 0.4 Alk Phos 102(Elevator Constructor al Lab) AST 31(Externa l Lab) 13 - 35 ALT 29(Externa l Lab) 7 - 35 GGT 17(Externa l Lab) Chol, Total 205(METAL FURNACE OPERATOR AL/ABN) mg/dL Hemoglobin A1C 7.6(METAL FURNACE OPERATOR AL/ABN) Triglycerides 161(METAL FURNACE OPERATOR AL/ABN) mg/dL HDL 35(EXTERNA L/ABN) md/dL LDL Cholesterol 138(METAL FURNACE OPERATOR AL/ABN) mg/dL 03/05/2015 Judith Reinoso MD POINT OF CARE FABIENNE T ORDERABLES * (ABNORMAL) Microalbumin, urine, random (03/05/2015) U Creatinine 162(METAL FURNACE OPERATOR AL/ABN) U Albumin Conc, Random 39.2(EXTER NAL/ABN) Urine specimen (specimen) 03/05/2015 Judith Reinoso MD URINE ORDERABLES documented in this encounter Visit Diagnoses Diagnosis Type II or unspecified type diabetes mellitus with neurological manifestations, 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
--- OUTSIDE RECORDS SUMMARY | 2024-05-15 11:13 | XMS_ITS | Encounter Summary ---
Author Organization [facility] [place] [address] Care Team Providers Care Direct Marketing Analyst Name Role Phone Nanda Read MD Primary Care Provider Reason for Visit * Reason Comments Medication Refill Encounter Details Date Type Department Care Team (Late st Contact Info) Description 05/22/2014 Refill [place] [address] Judith Reinoso MD [facility] DR [place]OCR[place] [address] Social History Tobacco Use Types Packs/Day Years [...] AM EDT TH Visit (TeleHealth) [place] [address] Wyatt Higgins MD [facility] [place] [address] documented as of this encounter Visit Diagnoses Not on filedocumented in this encounter Care Teams Direct Marketing Analyst Relationship Specialty Start Date End Date Nanda Read MD [facility] [address] [place] [address] PCP - General 09/14/10 06/06/18 documented as of this encounter
--- OUTSIDE RECORDS SUMMARY | 2024-05-15 11:13 | XMS_ITS | Encounter Summary ---
[place] [address] Care Team Providers Care Basket Turner Name Role Phone Nanda Read MD Primary Care Provider Reason for Visit * Reason Onset Date Comments Advice Only 06/07/2013 Encounter Details Date Type Department Care Team (Late st Contact Info) Description 06/07/2013 [place] [phone] Tracy Tavarez LPN Advice Only Social History Tobacco Use Types [...] Telephone Encounter - Tracy Tavarez LPN - 06/07/2013 3:59 PM EDT Called patient at which time message form Dr Reinoso was read to her. Patient states she feels okay today but real test will be this evening as this is when she has always had worst symptoms. Patient agrees with plan of care and states okay I will take it real short, but I really want to get offthe insulin not just to take more shots. * Telephone Encounter - Judith Reinoso MD - 06/07/2013 11:05 AM EDT Good news that she responded very well to victoza even at a low dose, so she can use 0.6-1.2 mg sc qd (and not 1.8 mg dose) in the future. Hopefully she can tolerate at least the 0.6 mg dose and it may take 1-2 weeks or linger before she try to titrate the dose up slowly to 1.2 mg qd (or even do alternating 0.6 and 1.2 mg qod!-as tolerated. JUDITH REINOSO MD * Telephone Encounter - Tracy Tavarez LPN - 06/07/2013 8:38 AM EDT Patient calls started on victoza 0.6 mg 2 weeks ago. Increased to 1.2 mg one week ago tolerated increased dose for four days. Past 3 days stomach bubbly, noisy burping, nausea almost to the point of pain. Worse in the evening. Due to increase today to 1.8mg Per Dr Reinoso patient to hold today's dose. If all symptoms gone to restart victoza tomorrow at 0.6 mg Patient agrees with plan of care but is disappointed as she has noticed decrease in appetite with 6pound weight loss since starting victoza. BG down from 200's in AM to 104-120 and U500 decreased to0.1 ML twice daily documented in this encounter Plan of Treatment Upcoming Encounters Date Type Department Care Team (Late st Contact Info) Description 02/19/2025 9:00 AM EDT TH Visit (TeleHealth) [place] [address] Wyatt Higgins MD [facility] [place] [address] documented as of this encounter Visit Diagnoses Not on filedocumented in this encounter Care Teams Basket Turner Relationship Specialty Start Date End Date Nanda Read MD [facility] [address] [place] [address] PCP - General 09/14/10 06/06/18 documented as of this encounter
--- OUTSIDE RECORDS SUMMARY | 2024-05-15 11:13 | XMS_ITS | Encounter Summary ---
[place] [address] Care Team Providers Care Sql Ssrs Ssis Developer Name Role Phone Nanda Read MD Primary Care Provider [phone] Encounter Details Date Type Department Care Team (Late st Contact Info) Description 05/01/2015 Telephone [place] [phone] Tracy Tavarez LPN Social History Tobacco Use [...] Telephone Encounter - Tracy Tavarez LPN - 05/07/2015 8:00 AM EDT Called patient at which time message from Dr Reinoso was read to her. Patient agrees with plan ofcare. * Telephone Encounter - Judith Reinoso MD - 05/06/2015 4:47 PM EDT Sorry to hear that she has side effects from taking bydureon and certainly ok to stick with insulinand other oral meds. Thanks for letting me know. Judith Reinoso MD * Telephone Encounter - Tracy Tavarez LPN - 05/05/2015 10:43 AM EDT R/c to patient I am not going to take that Bydureon. I have a really upset stomach and foul gas. Ithink I want to just stick with the U500 and Humalog. I am tired of being a guinea pig * Telephone Encounter - Tracy Tavarez LPN - 05/01/2015 2:15 PM EDT R/c to patient who states I just took my first shot of Bydureon and realized that it is the same as Byetta which I did not do well with Was really sick. Vomiting Patient also asking how fast Bydureon will start to work and what she is to do regarding other diabetic medications. Patient very concerned that she will have low bg's and does not want to take U500 insulin this PM Following read to patient from 03/10/15 office note Plan: 1. Medication: Adjustment of [...] sliding scale as needed (1u:10-20 BG ratio). R/c to patient who was told per Dr Ganesh Whipple will start to work within a few hours. Some people do tolerate this better then Byetta. U500 insulin this PM to be decreased to 0.05 ML 5U on insulin syringe Patient agrees with plan of care and will call next week to report oh how she is doing and knows tocall [phone] and ask for endo chief information security officer should she need assistance over the wekend. documented in this encounter Plan of Treatment Upcoming Encounters Date Type Department Care Team (Late st Contact Info) Description 02/19/2025 9:00 AM EDT TH Visit (TeleHealth) [place] [address] Wyatt Higgins MD [facility] [place] [address] documented as of this encounter Visit Diagnoses Not on filedocumented in this encounter Care Teams Sql Ssrs Ssis Developer Relationship Specialty Start Date End Date Nanda Read MD [facility] [address] [place] [address] PCP - General 09/14/10 06/06/18 documented as of this encounter
--- OUTSIDE RECORDS SUMMARY | 2024-05-15 11:13 | XMS_ITS | Encounter Summary ---
Author Organization [facility] [place] [address] Care Team Providers Care Lav Crewman Name Role Phone Nanda Read MD Primary Care Provider Reason for Visit * Reason Comments Medication Refill Encounter Details Date Type Department Care Team (Late st Contact Info) Description 08/02/2013 [place] [phone] Judith Reinoso MD [facility] DR [place] [address] Social History Tobacco Use Types Packs/Day Years [...] AM EDT TH Visit (TeleHealth) [place] [address] Wyatt Higgins MD [facility] [place] [address] documented as of this encounter Visit Diagnoses Not on filedocumented in this encounter Care Teams Lav Crewman Relationship Specialty Start Date End Date Nanda Read MD [facility] [address] [place] [address] PCP - General 09/14/10 06/06/18 documented as of this encounter
--- OUTSIDE RECORDS SUMMARY | 2024-05-15 11:13 | XMS_ITS | Encounter Summary ---
Author Organization [facility] [place] [address] Care Team Providers Care Circuit Breaker Mechanic Name Role Phone Nanda Read MD Primary Care Provider [phone] Encounter Details Date Type Department Care Team (Late st Contact Info) Description 11/03/2015 10:00 AM EST Clinical Support [place] [phone] Social History Tobacco Use Types Packs/Day Years [...] EDT TH Visit (TeleHealth) [place] [phone] Wyatt Higgins MD [facility] [place] [address] documented as of this encounter Visit Diagnoses Not on filedocumented in this encounter Care Teams Circuit Breaker Mechanic Relationship Specialty Start Date End Date Nanda Read MD [facility] [address] [place] [address] PCP - General 09/14/10 06/06/18 documented as of this encounter
--- OUTSIDE RECORDS SUMMARY | 2024-05-15 11:13 | XMS_ITS | Encounter Summary ---
[place] [address] Care Team Providers Care Invoice Control Clerk Name Role Phone Nanda Read MD Primary Care Provider [phone] Reason for Visit * Reason Onset Date Comments Other 08/17/2015 Encounter Details Date Type Department Care Team (Late st Contact Info) Description 08/17/2015 Telephone [place] [phone] [address] Other Social History Tobacco [...] * Telephone Encounter - Taylor Vance - 08/17/2015 3:41 PM EDT Telephone call to pt to discuss nutrition visit notes. Informed her that the notes sent from her PCP were handwritten and unclear. The notes did not have all of the information needed per visit, suchas weight, BMI, diet and exercise. Suggested pt discuss note format with PCP to get the additional information. Pt plans to call PCP this afternoon to ask them to fax over clear notes with the nutrition information needed. documented in this encounter Plan of Treatment Upcoming Encounters Date Type Department Care Team (Late st Contact Info) Description 02/19/2025 9:00 AM EDT TH Visit (TeleHealth) [place] [address] Wyatt Higgins MD [facility] [place] [address] documented as of this encounter Visit Diagnoses Not on filedocumented in this encounter Care Teams Invoice Control Clerk Relationship Specialty Start Date End Date Nanda Reda MD [facility] [address] [place] [address] PCP - General 09/14/10 06/06/18 documented as of this encounter
--- OUTSIDE RECORDS SUMMARY | 2024-05-15 11:13 | XMS_ITS | Encounter Summary ---
[facility] [place] [address] Care Team Providers Care Diesel Powerplant Mechanic Helper Name Role Phone Nanda Read MD Primary Care Provider Reason for Visit * Reason Comments Skin Check Encounter Details Date Type Department Care Team (Late st Contact Info) Description 12/05/2014 2:15 PM EST Office Visit Dermatology at [address] [place] [address] Galdino Gilliland MD [address] [place] [address] DER[place] [place], [place] [id number] Seborrheic keratosis Discharge Disposition: Home Social History [...] this encounter Patient Instructions * Patient Instructions* Franchesca Barreto LPN - 12/05/2014 1:57 PM EST [facility] Actinic Keratosis: After Your Visit Your Care Instructions Actinic keratosis is a skin growth caused by sun damage. It can turn into skin cancer, but this isn't common. Actinic keratoses, also called solar keratoses, are small red, brown, or skin-colored scaly patches. They are most common on the face, neck, hands, and forearms. Your doctor can remove these growths by freezing or scraping them off or by putting medicines on them. Follow-up care is a florence part of your treatment and safety. Be sure to make and go to all appointments, and call your doctor if you are having problems. It's also a good idea to know your test resultsand keep a list of the medicines you take. How can you care for yourself at home? ?? If your doctor removes the growth, clean the area with soap and water 2 times a day unless your doctor gives you different instructions. Don't use hydrogen peroxide or alcohol, which can slow healing. ?? You may cover the wound with a thin layer of petroleum jelly, such as Vaseline, and a nonstick bandage. To prevent actinic keratosis ?? Always wear sunscreen on exposed skin. Make sure the sunscreen blocks ultraviolet rays (both UVAand UVB) and has a sun protection factor (SPF) of at least 15. Use it every day, even when it is cloudy. Some doctors may recommend a higher SPF, such as 30. ?? Wear long sleeves, a hat, and pants if you are going to be outdoors for a long time. ?? Avoid the sun between 10 a.m. and 4 p.m., the peak time for UV rays. ?? Do not use tanning booths or sunlamps. When should you call for help? Watch closely for changes in your health, and be sure to contact your doctor if: ?? The areas that were treated are red, drain pus, or have red streaks leading from them. ?? You see other growths that do not go away. ?? You do not get better as expected. Where can you learn more? Visit our health information library at [email or web address] You can also view health information on [employer], your personal patient account. Log in or sign up today. Enter L364 in the search box to learn more about Actinic Keratosis: After Your Visit. ?? [id number] [email or web address]. Care instructions adapted under license by [facility]. This care instruction is for use with your licensed healthcare professional. If you have questions about a medical condition or this instruction, always ask your healthcare professional. [email or web address] disclaims any warranty or liability for your use of this information. Content Version: 10.3.364028; Current as of: May 22, 2014 documented in this encounter Progress Notes * Galdino Gilliland MD - 12/05/2014 2:11 PM EST Problem: Facial lesions of concern. Martha is a 49-year-old woman whose son Dhruv I see as a patient for psoriasis. She is referred by Dr. Read for evaluation of two lesions that have developed, one on the right forehead and one on the left medial canthus. Physical examination reveals a somewhat bluish, flat-topped papule with increased pore opening size, about 6 mm in diameter on the right forehead. She has a waxy, xwevv-du-vcthvjibf lesion on the left medial canthus, which she states used to be more elevated and was visible out the corner of her eye, but then it flattened back down again. It appears to be also consistent with seborrheic keratosis, has a light russell/brown color, and it is about 4 mm in diameter. The rest of the facial skin examination is benign. Examination of the hands, arms, and neck is benign. She has a number of tags about her neck. Assessment and Plan: Seborrheic keratoses; rule out unlikely SCCA versus BCCA. a. We discussed the option of surgical biopsy to remove and confirm diagnosis of these. b. The patient will be leaving for a trip in four days and so desires to defer biopsy. We will reschedule her for December 29, 2014, after her return, and plan for light shave C and D and removal of these. No medical urgency to do it today. COPY: Nanda Read M.D. documented in this encounter Plan of Treatment Upcoming Encounters Date Type Department Care Team (Late st Contact Info) Description 02/19/2025 9:00 AM EDT TH Visit (TeleHealth) [place] [address] Wyatt Higgins MD [facility] [place] [address] documented as of this encounter Visit Diagnoses Diagnosis Seborrheic keratosis Other seborrheic keratosis documented in this encounter Care Teams Diesel Powerplant Mechanic Helper Relationship Specialty Start Date End Date Nanda Read MD [facility] [address] [place] [address] PCP - General 09/14/10 06/06/18 documented as of this encounter
--- OUTSIDE RECORDS SUMMARY | 2024-05-15 11:13 | XMS_ITS | Encounter Summary ---
[place] [address] Care Team Providers Care Administrative Assistant Coordinator Name Role Phone Nanda Read MD Primary Care Provider [phone] Reason for Visit * Reason Onset Date Comments Prior Authorization 08/05/2015 Encounter Details Date Type Department Care Team (Late st Contact Info) Description 08/05/2015 [place] [address] Mckenzie Butt Prior Authorization Social History Tobacco [...] * Telephone Encounter - Mckenzie Butt - 08/05/2015 7:12 AM EDT Medication Prior Authorization chaidarucarlos Medication name/dose/directions: invokana 100 mg tab 1x/day Rationale for request: Dm renal manif t2, untontrolled [place] Authorizing construction sales representative name: mckenzie Faxed to health plan on: 08/05/15 Health plan decision: approved Quantity approved: Authorization number: [id number] Start date: 08/05/15 End date: 08/05/16 Patient notified? no Pharmacy notified? yes documented in this encounter Plan of Treatment Upcoming Encounters Date Type Department Care Team (Late st Contact Info) Description 02/19/2025 9:00 AM EDT TH Visit (TeleHealth) [place] [address] Wyatt Higgins MD [facility] [place] [address] documented as of this encounter Visit Diagnoses Not on filedocumented in this encounter Care Teams Administrative Assistant Coordinator Relationship Specialty Start Date End Date Nanda eRad MD [facility] [address] [place] [address] PCP - General 09/14/10 06/06/18 documented as of this encounter
--- OUTSIDE RECORDS SUMMARY | 2024-05-15 11:13 | XMS_ITS | Encounter Summary ---
[place] [address] Care Team Providers Care Vascular Technologist Sonographer Name Role Phone Nanda Read MD Primary Care Provider [phone] Reason for Visit * Reason Onset Date Comments Results 05/24/2013 Encounter Details Date Type Department Care Team (Late st Contact Info) Description 05/24/2013 Telephone [place] [phone] Tracy Tavarez LPN Results Social History Tobacco Use Types Packs/Day [...] Telephone Encounter - Tracy Tavarez LPN - 05/24/2013 11:32 AM EDT Images from the original note were not included. Martha Benoit - 05/23/13 - good vit D ','<<< Less Detail good vit D Judith Reinoso MD Sent: Ava May 23, 2013 11:36 PM To: Carolyn Vigil Endocrinology Nurse Message Alex Molina, please tell pt that the pending lab for vitamin D at recent visit was much better now at 47, up from 29 (normal 30-100). So, pt should take vitamin-D weekly for now (instead of 2x/week). Thanks, Judith Called patient at which time above message was read to her. Patient agrees with plan of care. documented in this encounter Plan of Treatment Upcoming Encounters Date Type Department Care Team (Late st Contact Info) Description 02/19/2025 9:00 AM EDT TH Visit (TeleHealth) [place] [address] Wyatt Higgins MD [facility] [place] [address] documented as of this encounter Visit Diagnoses Not on filedocumented in this encounter Care Teams Vascular Technologist Sonographer Relationship Specialty Start Date End Date Nanda Read MD [facility] [address] [place] [address] PCP - General 09/14/10 06/06/18 documented as of this encounter
--- OUTSIDE RECORDS SUMMARY | 2024-05-15 11:13 | XMS_ITS | Encounter Summary ---
Author Organization [facility] [place] [address] Care Team Providers Care Loan Officer Name Role Phone Nanda Read MD Primary Care Provider [phone] Encounter Details Date Type Department Care Team (Latest Contact Info) Description 03/09/2015 External Results [place] [address] Judith Reinoso MD [facility] DR ENDOCRINOLOG[place] [address] Type II or unspecified type diabetes mellitus [...] AM EDT TH Visit (TeleHealth) [place] [address] Wyatt Higgins MD [facility] [place] [address] documented as of this encounter Procedures Procedure Name Priority Date/Time Associated Diagnosis Comments EXTERNAL LAB CBC CMP THYROID RESULTS PANEL Routine 03/05/2015 VITAMIN D, 25-HYDROXY Routine 03/05/2015 Type II or unspecified type diabetes mellitus with neurological manifestations, uncontrolled Unspecified vitamin D deficiency Chronic fatigue C-PEPTIDE Routine 03/05/2015 Type II or unspecified type diabetes mellitus with neurological manifestations, uncontrolled Unspecified vitamin D deficiency Chronic fatigue documented in this encounter Results * (ABNORMAL) CBC / CMP / Thyroid External Results (03/05/2015) TSH 2.55([facility]) 03/05/2015 Judith Reinoso MD POINT OF CARE FABIENNE T ORDERABLES * (ABNORMAL) C-peptide (03/05/2015) C-Peptide 2.9(Externa l Lab) Blood specimen (specimen) 03/05/2015 Judith Reinoso MD CHEMISTRY ORDERAB LES * (ABNORMAL) VIT D Total Evaluation (03/05/2015) 25-OH Vit D Total 28(Externa l Lab) 25-Hydroxy D2 24(Externa l Lab) 25-Hydroxy D3 4.3([facility]) Blood specimen (specimen) 03/05/2015 Judith Reinoso MD CHEMISTRY ORDERAB LES documented in this encounter Visit Diagnoses Diagnosis Type II or unspecified type diabetes mellitus with neurological manifestations, uncontrolled(250.62) Type II or unspecified type diabetes mellitus with neurological manifestations, uncontrolled Unspecified vitamin D deficiency Chronic fatigue Other malaise and fatigue documented in this encounter Care Teams Loan Officer Relationship Specialty Start Date End Date Nanda Read MD [facility] [address] [place] [address] PCP - General 09/14/10 06/06/18 documented as of this encounter
--- OUTSIDE RECORDS SUMMARY | 2024-05-15 11:13 | XMS_ITS | Encounter Summary ---
[place] [address] Care Team Providers Care Materials Supervisor Name Role Phone Nanda Read MD Primary Care Provider [phone] Reason for Visit * Reason Onset Date Comments Prior Authorization 05/24/2013 VICTOZA Encounter Details Date Type Department Care Team (Late st Contact Info) Description 05/24/2013 Telephone [place] [phone] Lisseth Sheth Prior Authorization (VICTOZA) Social History Tobacco Use Types Packs/Day Years [...] encounter Miscellaneous Notes * Telephone Encounter - Lisseth Sheth - 05/24/2013 4:47 PM EDT Medication Prior Authorization CHAIDARUN Medication name/dose/directions: VICTOZA 3 ANNA / Inject 1.8 mg subcutaneously daily Rationale for request: DM Health plan: [place] Authorizing primary care sales representative name: FAXED Faxed to health plan on: 05/24/13 Health plan decision: Approved Quantity approved: 07/22 Authorization number: Start date: 05/24/2013 End date: 05/24/2014 Patient notified? no Pharmacy notified? yes documented in this encounter Plan of Treatment Upcoming Encounters Date Type Department Care Team (Late st Contact Info) Description 02/19/2025 9:00 AM EDT TH Visit (TeleHealth) [place] [address] Wyatt Higgins MD [facility] [place] [address] documented as of this encounter Visit Diagnoses Not on filedocumented in this encounter Care Teams Materials Supervisor Relationship Specialty Start Date End Date Nanda Read MD [facility] [address] [place] [address] PCP - General 09/14/10 06/06/18 documented as of this encounter
--- OUTSIDE RECORDS SUMMARY | 2024-05-15 11:14 | XMS_ITS | Encounter Summary ---
Author Organization [facility] [place] [address] Care Team Providers Care Call Specialist Name Role Phone Nanda Read MD Primary Care Provider [phone] Encounter Details Date Type Department Care Team (Late st Contact Info) Description 12/24/2010 3:30 PM EST Office Visit [place] [address] Polina Aguilar, PT [facility] PHYSICAL MEDICINE & [place] [address] Nanda Read MD [facility] [address] [place], [place] [id number] Discharge Disposition: Home Social History Tobacco Use [...] AM EDT TH Visit (TeleHealth) [place] [address] Wyatt Higgins MD [facility] [place] [address] documented as of this encounter Visit Diagnoses Not on filedocumented in this encounter Care Teams Call Specialist Relationship Specialty Start Date End Date Nanda Read MD [facility] [address] [place] [address] PCP - General 09/14/10 06/06/18 documented as of this encounter
--- OUTSIDE RECORDS SUMMARY | 2024-05-15 11:14 | XMS_ITS | Encounter Summary ---
Author Organization [facility] [place] [address] Care Team Providers Care Forming Operator Name Role Phone Nanda Read MD Primary Care Provider [phone] Encounter Details Date Type Department Care Team (Latest Contact Info) Description 11/16/2011 2:07 PM EST - 11/16/2011 5:10 PM EST Hospital En[place] [address] Alisa Richards MD [facility] [address] [place] [address] Discharge Disposition: Home Social History Tobacco Use [...] Reading Time Taken Comments Blood Pressure 130/63 11/16/2011 4:36 PM EST Pulse 96 11/16/2011 4:36 PM EST Temperature 36.8 ??C (98.2 ??F) 11/16/2011 2:56 PM ES T Respiratory Rate 18 11/16/2011 4:36 PM EST Oxygen Saturation 98% 11/16/2011 4:36 PM EST Inhaled Oxygen Concentration - - Weight 108.9 kg (240 lb) 11/16/2011 2:56 PM EST Height 157.5 cm (5' 2) 11/16/2011 2:56 PM EST Body Mass Index 43.9 11/16/2011 2:56 PM EST documented in this encounter Discharge Instructions * Discharge Instructions* Roxanna Azar RN - 11/16/2011 4:37 PM EST You may have received medication before and/or during your procedure, which affects judgement and reaction time. Do not drive, operate machinery, drink alcoholic beverages, or make important decisions for 24 hours. Be careful on stairs, as you may be unsteady on your feet. You may eat a regular diet as tolerated. Do not smoke if you are alone. IV site -- slight redness, or tenderness is normal, you can use a warm compress. If tenderness and redness increases or foul drainage occurs, please contact your M. D. * Patient Instructions* Alisa Richards MD - 11/16/2011 4:39 PM EST Please see Recommendations in the Provation procedure report which is documented in the procedural note in E-[facility]. * Attachments The following attachments cannot be sent through Care Everywhere. * UPPER GI ENDOSCOPY: WHAT TO EXPECT AT HOME (KINYARWANDA) documented in this encounter Medications at Time of Discharge Medication Sig Dispensed Refills Start Date End Date folic acid (FOLVITE) 1 mg tablet Take 1 mg by mouth daily. Reported on 04/06/2017 04/06/2017 furosemide (LASIX) 40 mg tablet Take 40 mg by mouth as needed. 01/06/2016 glipiZIDE (GLUCOTROL) 10 mg tablet Take 10 mg by mouth 2 times daily (before meals). 01/06/2016 metFORMIN (GLUCOPHAGE) 500 mg tablet Take 500 mg by mouth 2 times daily (with meals). 02/05/2019 OXYcodone-acetaminophen (PERCOCET) 5-325 mg per tablet Take 1 tablet by mouth every 4 hours. 11/17/2015 POTASSIUM CHLORIDE (KLOR-CON 10 ORAL) Take 10 mEq by mouth 2 times daily. Reported on 04/06/2017 04/06/2017 insulin regular CONCENTRATE U-500 (HUMULIN R U-500 CONCENTRATED) 500 unit/mL Soln Inject as directed 2 times daily. To give 0.15 ml in am and 0.2 ml in pm and adjusted as needed. 20 mL 4 06/03/2011 07/17/2012 Insulin Syringe-Needle U-100 (INSULIN SYRINGE) 1/2 mL 30 x 03/07 Syrg by [facility]Non-Drug; Combo Route) route 2 times daily. Using with insulin bid 1 Box 4 06/03/2011 04/06/2017 pregabalin (LYRICA) 100 mg capsule 12/24/2010 05/29/2012 Alpha Lipoic Acid 200 mg Tab 600 MG = 3 Tablet(s), PO, Once daily 12/24/2010 05/29/2012 documented as of this encounter H&P Notes * Alisa Richards MD - 11/16/2011 3:56 PM EST See office notes; see H & P; no interval change; stable for procedure; clear lungs; RRR; consent signed. documented in this encounter Miscellaneous Notes * Miscellaneous - Provider, Scanning - 11/16/2011 9:01 PM EST * Miscellaneous - Provider, Scanning - 11/16/2011 2:36 PM EST documented in this encounter Plan of Treatment Upcoming Encounters Date Type Department Care Team (Late st Contact Info) Description 02/19/2025 9:00 AM EDT TH Visit (TeleHealth) [place] [address] Wyatt Higgins MD [facility] [place] [address] documented as of this encounter Procedures Procedure Name Priority Date/Time Associated Diagnosis Comments SURGICAL PATHOLOGY REPORT Routine 11/16/2011 5:12 PM EST SPECIMEN TO PATHOLOGY Routine 11/16/2011 4:40 PM EST EGD WITH BIOPSY (WRVU 2.39) 11/16/2011 4:17 PM EST heartburn dyspepsia 1 yr f/u consult UPPER GI ENDOSCOPY 11/16/2011 4: 17 PM EST heartburn dyspepsia 1 yr f/u consult UPPER GI ENDOSCOPY Routine 11/16/2011 3: 58 PM EST POCT GLUCOSE Routine 11/16/2011 3:10 PM EST documented in this encounter Results * SURGICAL PATHOLOGY REPORT (11/16/2011 5:12 PM EST) Surgical Pathology Report ? [facility] ? Provider: ?? ALISA RICHARDS ? Pt. Name: ?? JO JONES ? Acc #: ?[id number] ?Pt. ? Col Date: ?? 11/16/2011 ? /Sex: ?1965,(45 years),Female ? Rec Date: ?? 11/16/2011 ? LOC: ?4T ? SURGICAL PATHOLOGY ? ---Pathologic Diagnosis--- ? Endoscopic biopsy - ? A - Stomach: ? Gastric antral and fundic gland mucosa with nonspecific reactive ? gastropathy. No H. pylori-like microorganism is seen (IHC stains). ? CR-0 ? 11/18/11 ? XL ? 11/18/11 Verified by: ? Deb Draper MD ? Pathologist ? (Electronic Signature) ? The attending pathologist whose signature appears on this report has ? reviewed all diagnostic slides and has edited the gross and/or ? microscopic portion of the report in rendering the final pathologic ? diagnosis. ? ---Microscopic Description--- ? Slides reviewed, microscopic description not recorded. ? Immunohistochemistry Studies: ? Formalin-fixed, paraffin-embedded tissue sections are studied using the B- ? SA system technique with appropriate positive and negative controls. ??These ? IHC studies provide the pathologist with adjunctive diagnostic information. ? Antibody specificity has been verified by testing antibodies on a series of ? in-house tissues with known immunohistochemical performance ? characteristics. The clinical interpretation of any antibody positive ? staining or its absence is evaluated within the context of clinical ? presentation, morphology, histopathological criteria and other diagnostic ? tests. ? Block ?Antibody ? Result (Positive/Negative) ? A1 ? H. pylori ?Negative ? A2 ? H. pylori ?Negative ? ---Gross Description--- ? Labeled/Fixative: ? Stomach, formalin. ? Qty/Size/Weight: ?Six, averaging 0.2 cm. ? Tissue Description: ?? Soft, russell tissues. ? Sections/Processing: ??(T2) ??vms/SNS ? ---Clinical Information--- ? Specimen Submitted: ? [facility] ? Provider: ?? ALISA RICHARDS ? Pt. Name: ?? JO JONES ? Acc #: ?[id number] ?Pt. ? Col Date: ?? 11/16/2011 ? /Sex: ?1965,(45 years),Female ? Rec Date: ?? 11/16/2011 ? LOC: ?4T ? SURGICAL PATHOLOGY ? A - Stomach ? Clinical History/Diagnosis: ? Dyspepsia, ELAINE. ??Random biopsy, erosions noted, erythema: ??? HP CERNER MILLENNIUM 11/16/2011 5:12 PM EST Alisa Richards MD PATHOLOGY/CYTOLOGY O SHAYAN Performing Organization Address [facility] Co de Phone Number KENDALL GUNNENNIUM * Specimen to Pathology (surgical or derm) (11/16/2011 4:40 PM EST) AP Specimen 11/16/2011 4:40 PM EST 11/16/2011 4:41 PM EST Narrative CERNER MILLENNIUM - 11/16/2011 4:40 PM EST Specimen requisition ordered. ??Separate Pathology report to follow Alisa Richards MD PATHOLOGY/CYTOLOGY O SHAYAN Performing Organization Address [facility] Co de Phone Number [facility] * UPPER GI ENDOSCOPY (11/16/2011 3:58 PM EST) UPPER GI ENDOSCOPY [facility] Endoscopy Patient Name: Jo Jones ? Procedure Date: 11/16/2011 3:58 PM ? Date of : 1965 ? Age: 45 ? Order #: [id number] ? Procedure: ? Upper GI endoscopy Indications: ? Heartburn, Dyspepsia; followup to EGD ? June 2010 showing Grade A ? esophagitis Providers: ? Alisa Richards MD, Kimberly Borja, ? RN, Nixon Romero, Custom Frame Assembler Referring : ?Nanda Read MD Requesting Provider: Dr. Read Medicines: ? Monitored Anesthesia Care - 1 mg ? versed, 50 mg fentanyl, 25 mg ? benadryl - all iv Complications: ? No immediate complications. Procedure: ? The procedure, indications, benefits, ? risks [...] ? endoscopy was accomplished without ? difficulty. ? Findings: ? The examined duodenum was normal. ? - No retained food in the stomach.Four dispersed, ? small non-bleeding erosions were found in the gastric ? antrum. There were no stigmata of recent bleeding. ? Biopsies were taken with a cold forceps for histology ? and from throughout the stomach to rule out h. ? pylori. The gastric body was normal. Biopsies were ? taken with a cold forceps for histology. The gastric ? fundus was normal. Biopsies were taken with a cold ? forceps for histology. A small sliding hiatal hernia ? was noted on retroflexion.The Z-line was regular and ? was found 35 cm from the incisors. The middle third ? of the esophagus was normal. The upper third of the ? esophagus was normal. ? Impression: ?- Normal examined duodenum. ? - 4 small non-bleeding antral erosions ? - small sliding hiatal hernia ? - previously identified esophagitis ? has healed Recommendation: ?- Await pathology results. ? - Letter will be sent to patient and ? referring provider in 10 days. ? - Return to primary care physician as ? previously scheduled. ? - Avpid all anti-inflammatory agents ? (no motrin, advil, ibuprofen, aleve). ? - Use omeprazole (prilosec - 40 mg) ? routinely 30 minutes before the ? evening meal ? Attending Participation: ? I personally performed the entire procedure. ? Alisa Richards MD 11/16/2011 4:57 PM ? Number of Addenda: 0 Note Initiated On: 11/16/2011 3:58 PM PR[facility]ATION 11/16/2011 3:58 PM EST Nanda Read MD GENERAL SURGICAL ORD ERABLES PR[facility]ATION * POCT GLUCOSE LAB USE ONLY (11/16/2011 3:10 PM EST) POC Glucose 64 60 - 199 mg/dL [facility] Comment: Supplemental ranges: <110 mg/dL before meals <200 mg/dL all other times of the day Blood specimen (specimen) 11/16/2011 3:10 PM EST 11/16/2011 3:10 PM EST Alisa Richards MD POINT OF CARE TEST O RDERABLES [facility] documented in this encounter Visit Diagnoses Not on filedocumented in this encounter Active and Recently Administered Medications Care Teams Forming Operator Relationship Specialty Start Date End Date Nanda Read MD [facility] D [address] [place] [address] PCP - General 09/14/10 06/06/18 documented as of this encounter
--- OUTSIDE RECORDS SUMMARY | 2024-05-15 11:14 | XMS_ITS ---
Author Organization Unknown Address [address] [place] [phone] Phone Care Team Providers Care Manager Regional Name Role Phone KARLY Mcelroy Attending Unavailable [...] D Wednesday, June 08, 2022 11:11:49 AM [phone] Electronically Reviewed and Signed By: CATHERINE TRACEY MD 06/11/22 10:46 Copy for: KARLY Mcelroy via fax Copy for: [facility] IN[facility] MGMT Social History Type Status Start Date End Date Code Code Syst em Smoking History Never smoker (Never Smoked) [id number] SNOMED CT Sex Female Hospital Discharge Instructions [...]
--- OUTSIDE RECORDS SUMMARY | 2024-05-15 11:14 | XMS_ITS | Encounter Summary ---
Author Organization [facility] [place] [address] Care Team Providers Care Hospitality Team Member Name Role Phone Nanda Read MD Primary Care Provider [phone] Encounter Details Date Type Department Care Team (Late st Contact Info) Description 05/08/2013 External Results XRay at [address] [place] [phone] Nanda Read MD [facility] D [address] [place], [place] [id number] Social History Tobacco Use Types Packs/Day Years [...] AM EDT TH Visit (TeleHealth) Neurology at [facility] [place] [address] Wyatt Higgins MD [facility] [place] [address] documented as of this encounter Procedures Procedure Name Priority Date/Time Associated Diagnosis Comments MRI/MRA SCAN Routine 01/09/2013 documented in this encounter Results * Scan Doc: MRI/MRA (01/09/2013) Anatomical Region Laterality Modality Other Nanda Read MD MEDIA MGR SCAN EXT O RDR/RSLT documented in this encounter Visit Diagnoses Not on filedocumented in this encounter Care Teams Hospitality Team Member Relationship Specialty Start Date End Date Nanda Read MD [facility] [address] [place] [address] PCP - General 09/14/10 06/06/18 documented as of this encounter
--- OUTSIDE RECORDS SUMMARY | 2024-05-15 11:14 | XMS_ITS | Encounter Summary ---
Author Organization [facility] [place] [address] Care Team Providers Care Supply Planner Name Role Phone Ruth Munoz Lilibeth JUAREZ Primary Care Provider + Encounter Details Date Type Department Care Team (Late st Contact Info) Description 07/21/2010 Orders [place] [phone] Jace Jacobson MD [facility] [place] [address] Social History Tobacco Use Types Packs/Day Years [...] AM EDT TH Visit (TeleHealth[place] [address] Wyatt Higgins MD [facility] [place] [address] documented as of this encounter Procedures Procedure Name Priority Date/Time Associated Diagnosis Comments SURGICAL PATHOLOGY REPORT Routine 07/21/2010 1:00 PM EDT documented in this encounter Results * Surgical Pathology Report (07/21/2010 1:00 PM EDT) Surgical Pathology Report [id number] ? Location: 4T The signing pathologist has (i) examined the relevant preparation(s) for the specimen(s) and (ii) rendered or confirmed the diagnosis(es). . ?Pathology Surgical Pathology Final Report Clinical Information Specimen Submitted: A - Stomach, antrum. Clinical History: Antrum, ? intestinal metaplasia of the antrum Clinical Diagnosis: Gastric polyp, intestinal metaplasia at [facility] needs BX Gross Description Labeled/Fixativ e: ? Stomach antrum, formalin. Qty/Size/Weight : ?Multiple, ranging from 0.1 cm to 0.3 cm in greatest ?dimension. Tissue Description: ?? Soft, pink tissues. Sections/Proces sing: ??(T2) ??aje/SNS Microscopic Description Slides reviewed, microscopic description not recorded. Diagnosis Gastric antrum, biopsy: ?? Gastric antrum-type mucosa with reactive gastropathy and ?? intestinal metaplasia. CR-0 07/23/10 BDS 07/23/10 Verified by: ? Mark Chong MD ?Pathologist ?(Electronic Signature) The attending pathologist whose signature appears on this report has reviewed all diagnostic slides and has edited the gross and/or microscopic portion of the report in rendering the final pathologic diagnosis. [facility] 07/21/2010 1:00 PM EDT Jace Jacobson MD PATHOLOGY/CYTOLOGY O SHAYAN [facility] documented in this encounter Visit Diagnoses Not on filedocumented in this encounter Care Teams Supply Planner Relationship Specialty Start Date End Date Ruth Munoz, SHINGLES ROOFER [address]PER [address] [place] [address] PCP - General Family Medicine 02/05/19 documented as of this encounter
--- OUTSIDE RECORDS SUMMARY | 2024-05-15 11:14 | XMS_ITS | Encounter Summary ---
Author Organization [facility] [place] [address] Care Team Providers Care First Front Ventilator Name Role Phone Nanda Read MD Primary Care Provider [phone] Reason for Visit * Reason Onset Date Comments Medication Refill 06/03/2011 Encounter Details Date Type Department Care Team (Late st Contact Info) Description 06/03/2011 Ref[place] [address] Judith Reinoso MD [facility] DR [place] [address] Social History Tobacco Use Types Packs/Day Years [...] AM EDT TH Visit (TeleHealth) [place] [address] Wyatt Higgins MD [facility] [place] [address] documented as of this encounter Visit Diagnoses Not on filedocumented in this encounter Care Teams First Front Ventilator Relationship Specialty Start Date End Date Nanda Read MD [facility] [address] [place] [address] PCP - General 09/14/10 06/06/18 documented as of this encounter
--- OUTSIDE RECORDS SUMMARY | 2024-05-15 11:14 | XMS_ITS | Encounter Summary ---
Author Organization [facility] [place] [address] Care Team Providers Care Dialysis Technician Name Role Phone Nanda Read MD Primary Care Provider [phone] Encounter Details Date Type Department Care Team (Late st Contact Info) Description 01/09/2013 Orders [place] [address] Cy Mason MD [facility] [place] [address] Social History Tobacco Use Types Packs/Day Years [...] AM EDT TH Visit (TeleHealth) [place] [address] Wyatt Higgins MD [facility] [place] [address] documented as of this encounter Procedures Procedure Name Priority Date/Time Associated Diagnosis Comments FILM LIBRARY STORAGE ONLY MR SPINE Routine 01/09/2013 2:07 PM EDT documented in this encounter Results * Film Library- Storage only MR Spine (01/09/2013 2:07 PM EDT) 01/09/2013 2:07 PM EDT Narrative RAD - 03/18/2014 1:44 PM EDT This is a non-reportable exam. Procedure Note Raulito Romeo - 03/18/2014 This is a non-reportable exam. Cy Mason MD IMG FILM LIBRARY ORD ERABLES [facility] [address] [place] [address] documented in this encounter Visit Diagnoses Not on filedocumented in this encounter Care Teams Dialysis Technician Relationship Specialty Start Date End Date Nanda Read MD [facility] D [address] [place] [address] PCP - General 09/14/10 06/06/18 documented as of this encounter
--- OUTSIDE RECORDS SUMMARY | 2024-05-15 11:14 | XMS_ITS ---
Author Organization [facility] [place] [address] Care Team Providers Care Nurse Supervisor Name Role Phone Ruth Munoz APRN Primary Care Provider + Status:Enrolled (Active) Start date:05/13/2022 Enrollment date:05/13/2022 Enrollment reason:Enrolled - Currently Fills with Specialty Current support & services provided:Clinical Management, Refill Management Linked medications:secukinumab (Active) Linked problems:Psoriasis (Active) Continued Care and Services Coordination
--- OUTSIDE RECORDS SUMMARY | 2024-05-15 11:14 | XMS_ITS | Encounter Summary ---
Author Organization [facility] [place] [address] Care Team Providers Care Adon Name Role Phone Nanda Read MD Primary Care Provider [phone] Encounter Details Date Type Department Care Team (Latest Contact Info) Description 07/03/2012 10:14 AM EDT - 07/03/2012 11:59 PM EDT Hospital Encounter Non-Invasive [place] [address] CLINIC, Nanda Hale MD [address] [place] [address] Chest pain Discharge Disposition: Home Social History Tobacco Use [...] Sign Reading Time Taken Comments Blood Pressure 170/91 07/03/2012 11:15 AM EDT Pulse 100 07/03/2012 11:15 AM EDT Temperature - - Respiratory Rate 20 07/03/2012 11:15 AM EDT Oxygen Saturation 99% 07/03/2012 11:15 AM EDT Inhaled Oxygen Concentration - - Weight 108.9 kg (240 lb) 07/03/2012 11:15 AM EDT Height 157.5 cm (5' 2) 07/03/2012 11:15 AM EDT Body Mass Index 43.9 07/03/2012 11:15 AM EDT documented in this encounter Medications at Time of Discharge Medication Sig Dispensed Refills Start Date End Date levothyroxine (SYNTHROID) 25 mcg tablet Take 1 tablet by mouth daily. 90 tablet 4 05/30/2012 05/22/2014 folic acid (FOLVITE) 1 mg tablet Take [...] 1/2 mL 30 x 03/07 Syrg by [facility].(Non-Drug; Combo Route) route 2 times daily. Using with insulin bid 1 Box 4 06/03/2011 04/06/2017 documented as of this encounter Plan of Treatment Upcoming Encounters Date Type Department Care Team (Late st Contact Info) Description 02/19/2025 9:00 AM EDT TH Visit (TeleHealth) [place] [address] Wyatt Higgins MD [facility] [place] [address] documented as of this encounter Procedures Procedure Name Priority Date/Time Associated Diagnosis Comments ECHOCARDIOGRAM PHARMACOLOGICAL STRESS TEST (DSE) Routine 07/03/2012 12:10 PM EDT Chest pain documented in this encounter Results * Echo pharm stress test (DSE) (07/03/2012 12:10 PM EDT) EF 70 HEARTLAB SYSTEM Anatomical Region Laterality Modality Other 07/03/2012 Narrative 07/03/2012 12:56 PM EDT Procedure: ? Stress Echocardiogram Patient: ? ROBERT Mustafa ?(Age): 1965(46) Med Rec#: ?[id number] ? Sex: ?F ? Site Loc: ?[facility] ? Ht / Wt: ??157(cm)/109(kg) Pt. Loc: ? Echo Lab ? BSA: ?2.18 Study Date: ?07/03/2012 ? Pt. Type: Outpatient Tape: ? Referring: Nanda Read Luster Repairer: Tj Sibley Luster Repairer 2: Jairon Leslie ([id number]) Nurse: Destiny Walls Diagnosis: ??Chest pain (786.50) CPT Code(s): ??Stress Echo (44404), ??Color Doppler (09706), ??Doppler LTD (20949), ??ECG Interpretation (68357), ??Optison ([id number]), Indication(s): ??Chest Pain Medication(s): ?? Rhythm: Stage ?HR ?BP Rest ? 94 ?108/45 ?? Low dose ? 106 ? 156/94 ?? Peak ? 155 ? 162/82 ?? Recovery ? 99 ?164/89 ?? SUMMARY: 1. STRESS DATA: ??The patient was given incremental doses of dobutamine to achieve a maximum heart rate of 155 bpm (90% predicted). ??The patient had no chest pain or significant ekg changes. 2. RESTING ECHO: ??There is normal global left ventricular systolic function. ??Ejection fraction is estimated to be 70%. ??There are no left ventricular segmental wall motion abnormalities. ??There is no hemodynamically significant valve disease. 3. STRESS ECHO: ??There is no echocardiographic evidence of myocardial ischemia at this level of stress. 4. IMPRESSION: ??This was a negative echocardiographic stress test. FINDINGS: Rest Study Quality ?Technically limited Left Ventricle ?The left ventricular chamber size is normal. ?Basal septal hypertrophy is observed. ?There is no evidence of LVOT obstruction. ?There is normal global left ventricular systolic function. ??Ejection fraction is estimated to be 65%. ?There are no left ventricular segmental wall motion abnormalities. Left Atrium ?The left atrium is normal in size. Right Ventricle ?The right ventricle is probably normal in size. ?Right ventricular global systolic function is probably normal. ?Pulmonary artery hypertension could not be assessed due to inadequate tricuspid regurgitation jet. Right Atrium ?The right atrium is normal in size. Aortic Valve ?The aortic valve is not well visualized. ?Systolic excursion of the aortic valve is normal. ?There is no evidence of aortic valve stenosis. ?There is no evidence of aortic regurgitation. Mitral Valve ?The mitral valve is probably normal. ?There is trace mitral regurgitation present. Tricuspid Valve ?The tricuspid valve is probably normal. ?There is trace tricuspid regurgitation present. Pericardium ?There is no pericardial effusion. ?A pericardial fat pad is visualized. Aorta ?The aortic root is normal in size. ?The ascending aorta is normal in size. Stress ?EKG: normal sinus rhythm. ?The patient's oxygen saturation was 98% on r/a ?The patient is on an DESMOND inhibitor. 98% Misc ?Optison contrast (one 3 ml vial) was used to enhance endocardial definition. Excess contrast was discarded. ?Stress echo, limited spectral Doppler, color Doppler and ECG interpretation performed. FINDINGS: Low dose Stress ?EKG: sinus tachycardia. ?The patient's oxygen saturation was 98% FINDINGS: Peak Stress ?Maximum heart rate achieved was 155, which is 90% of the maximum(172 beats/min). ?The target heart rate was achieved. ?The peak dose of Dobutamine infused was 20 ug/kg/min. ?The patient was administered 2 mg of Metoprolol during recovery. ?The patient did not express feelings of chest discomfort. ?The patient felt nauseous.lasting less than a minute ?The blood pressure response was normal. ?There were no arrhythmias. ?There were no significant ST segment changes. ?This was a negative electrocardiographic stress test for ischemia. ?This was a negative echocardiographic stress test. ?There is no echocardiographic evidence of myocardial ischemia at this level of stress. ?EKG: sinus tachycardia. ?The patient's oxygen saturation was 98% Misc ?Definity contrast was given to enhance Doppler signal. ?A 20 gauge heplock was placed. ?An IV was placed in the patient's right arm. ?The heplock was discontinued. ?The IV site is dry and intact with no hematoma. ?Normal saline was given. 250cc NS infused ?The patient is alert and oriented x3. ?The procedure was explained to the patient and the patient understands the procedure, FINDINGS: Recovery Stress ?EKG: normal sinus rhythm. ?The patient's oxygen saturation was 98% Wall Motion: Segment Name ?Rest ?Peak ? Base-Anteroseptal ?? Normal ?Normal ? Base-Anterior ? Normal ?Normal ? Base-Anterolateral ??Normal ?Normal ? Base-Posterolateral Normal ?Normal ? Base-Inferior ? Normal ?Normal ? Base-Inferoseptal ?? Normal ?Normal ? Mid-Anteroseptal ?Normal ?Normal ? Mid-Anterior ?Normal ?Normal ? Mid-Anterolateral ?? Normal ?Normal ? Mid-Posterolateral ??Normal ?Normal ? Mid-Inferior ?Normal ?Normal ? Mid-Inferoseptal ?Normal ?Normal ? [place]-Septal ? Normal ?Normal ? [place]-Anterior ? Normal ?Normal ? [place]-Lateral ?Normal ?Normal ? [place]-Inferior ? Normal ?Normal ? [place]-Tip ?Normal ?Normal ? Chambers ?Value ?Units (Range) ? LV EF Est ? 70 ? % (55 to 80) ? IVSd 2D ? 1.3 ?cm ? LVIDd 2D ?4.1 ?cm ? PWd 2D ?1 ?cm ? LVIDs 2D ?2.1 ?cm ? LVFS 2D ? 49 ? % ? LA area ? 13 ? cm2 (<21) ? RA area ? 12 ? cm2 (<18) ? Ao root ? 3.1 ?cm (2.1 to 3.6) ? Asc Ao ?2.8 ?cm (2 to 3.5) ? Mitral Valve ?Value ?Units (Range) ? E peak ?0.76 ? m/sec ? E/A ratio ? 1 ?ratio ? MVDT ?218 ?msec ? E1 ?0.09 ? m/sec ? E/E1 ?8.4 ?ratio ? This report has been electronically signed by: Oleg Lynch MD ? 07/03/2012 12:55:46 Images reviewed and interpretation verified [facility] Cardiac Ultrasound Laboratory Procedure Note Oleg Lynch MD - 07/03/2012 Procedure: Stress Echocardiogram Patient: ROBERT Mustafa DOB(Age): 1965(46) Med Rec#: [id number] Sex: F Site Loc: [facility] Ht / Wt: 157(cm)/109(kg) Pt. Loc: Echo Lab BSA: 2.18 Study Date: 07/03/2012 Pt. Type: Outpatient Tape: Referring: Nanda Read Luster Repairer: Tj Sibley Luster Repairer 2: Jairon Leslie ([id number]) Nurse: Destiny Walls Diagnosis: Chest pain (786.50) CPT Code(s): Stress Echo (42100), Color Doppler (24034), Doppler LTD (94877), ECG Interpretation (88401), Optison ([id number]), Indication(s): Chest Pain Medication(s): Rhythm: Stage HR BP Rest 94 108/45 Low dose 106 156/94 Peak 155 162/82 Recovery 99 164/89 SUMMARY: 1. STRESS DATA: The patient was given incremental doses of dobutamine to achieve a maximum heart rate of 155 bpm (90% predicted). The patient had no chest pain or significant ekg changes. 2. RESTING ECHO: There is normal global left ventricular systolic function. Ejection fraction is estimated to be 70%. There are no left ventricular segmental wall motion abnormalities. There is no hemodynamically significant valve disease. 3. STRESS ECHO: There is no echocardiographic evidence of myocardial ischemia at this level of stress. 4. IMPRESSION: This was a negative echocardiographic stress test. FINDINGS: Rest Study Quality Technically limited Left Ventricle The left ventricular chamber size is normal. Basal septal hypertrophy is observed. There is no evidence of LVOT obstruction. There is normal global left ventricular systolic function. Ejection fraction is estimated to be 65%. There are no left ventricular segmental wall motion abnormalities. Left Atrium The left atrium is normal in size. Right Ventricle The right ventricle is probably normal in size. Right ventricular global systolic function is probably normal. Pulmonary artery hypertension could not be assessed due to inadequate tricuspid regurgitation jet. Right Atrium The right atrium is normal in size. Aortic Valve The aortic valve is not well visualized. Systolic excursion of the aortic valve is normal. There is no evidence of aortic valve stenosis. There is no evidence of aortic regurgitation. Mitral Valve The mitral valve is probably normal. There is trace mitral regurgitation present. Tricuspid Valve The tricuspid valve is probably normal. There is trace tricuspid regurgitation present. Pericardium There is no pericardial effusion. A pericardial fat pad is visualized. Aorta The aortic root is normal in size. The ascending aorta is normal in size. Stress EKG: normal sinus rhythm. The patient's oxygen saturation was 98% on r/a The patient is on an DESMOND inhibitor. 98% Misc Optison contrast (one 3 ml vial) was used to enhance endocardial definition. Excess contrast was discarded. Stress echo, limited spectral Doppler, color Doppler and ECG interpretation performed. FINDINGS: Low dose Stress EKG: sinus tachycardia. The patient's oxygen saturation was 98% FINDINGS: Peak Stress Maximum heart rate achieved was 155, which is 90% of the maximum(172 beats/min). The target heart rate was achieved. The peak dose of Dobutamine infused was 20 ug/kg/min. The patient was administered 2 mg of Metoprolol during recovery. The patient did not express feelings of chest discomfort. The patient felt nauseous.lasting less than a minute The blood pressure response was normal. There were no arrhythmias. There were no significant ST segment changes. This was a negative electrocardiographic stress test for ischemia. This was a negative echocardiographic stress test. There is no echocardiographic evidence of myocardial ischemia at this level of stress. EKG: sinus tachycardia. The patient's oxygen saturation was 98% Misc Definity contrast was given to enhance Doppler signal. A 20 gauge heplock was placed. An IV was placed in the patient's right arm. The heplock was discontinued. The IV site is dry and intact with no hematoma. Normal saline was given. 250cc NS infused The patient is alert and oriented x3. The procedure was explained to the patient and the patient understands the procedure, FINDINGS: Recovery Stress EKG: normal sinus rhythm. The patient's oxygen saturation was 98% Wall Motion: Segment Name Rest Peak Base-Anteroseptal Normal Normal Base-Anterior Normal Normal Base-Anterolateral Normal Normal Base-Posterolateral Normal Normal Base-Inferior Normal Normal Base-Inferoseptal Normal Normal Mid-Anteroseptal Normal Normal Mid-Anterior Normal Normal Mid-Anterolateral Normal Normal Mid-Posterolateral Normal Normal Mid-Inferior Normal Normal Mid-Inferoseptal Normal Normal [place]-Septal Normal Normal [place]-Anterior Normal Normal [place]-Lateral Normal Normal [place]-Inferior Normal Normal [place]-Tip Normal Normal Chambers Value Units (Range) LV EF Est 70 % (55 to 80) IVSd 2D 1.3 cm LVIDd 2D 4.1 cm PWd 2D 1 cm LVIDs 2D 2.1 cm LVFS 2D 49 % LA area 13 cm2 (<21) RA area 12 cm2 (<18) Ao root 3.1 cm (2.1 to 3.6) Asc Ao 2.8 cm (2 to 3.5) Mitral Valve Value Units (Range) E peak 0.76 m/sec E/A ratio 1 ratio MVDT 218 msec E1 0.09 m/sec E/E1 8.4 ratio This report has been electronically signed by: Oleg Lynch MD 07/03/2012 12:55:46 Images reviewed and interpretation verified [facility] Cardiac Ultrasound Laboratory Nanda A Jacek WILSON ECHO ORDERABLES documented in this encounter Visit Diagnoses Diagnosis Chest pain Chest pain, unspecified documented in this encounter Administered Medications Inactive Administered Medications - up to 3 most recent administrations Medication Order MAR Action Action Date Dose Rate Site DOBUTamine 500 mg in sodium chloride 0.9% 250 mL (ECHO LAB) 20 mcg/kg/min ? 108.9 kg (rounded to 65.3 mL/hr), Intravenous, ONCE, 1 dose, On Mon07/03/12 at 1215, Echo Lab (Intra-Procedure) Given 07/03/2012 11:15 AM EDT 2.178 mg/min 65.3 mL/hr metoprolol (LOPRESSOR) injection 2 mg 2 mg, Intravenous, ONCE, 1 dose, On Mon07/03/12 at 1215, Echo Lab (Intra-Procedure), Routine Given 07/03/2012 11:45 AM EDT 2 mg perflutren protein-A microspheres (OPTISON) 0.22 mg/mL injection 0.5 mL 0.5 mL, Intravenous, ONCE PRN, 1 dose, Starting on Mon07/03/12 at 1211, Until Mon07/03/12 at 1211, for enhancement of sub-optimal echo images, Echo Lab (Intra-Procedure), Routine Given 07/03/2012 12:11 PM EDT 0.5 mLs documented in this encounter Care Teams Adon Relationship Specialty Start Date End Date Nanda Read MD [facility] [address] [place] [address] PCP - General 09/14/10 06/06/18 documented as of this encounter
--- OUTSIDE RECORDS SUMMARY | 2024-05-15 11:14 | XMS_ITS | Encounter Summary ---
Author Organization [facility] [place] [address] Care Team Providers Care Cloth Framer Name Role Phone Nanda Read MD Primary Care Provider Encounter Details Date Type Department Care Team (Late st Contact Info) Description 05/20/2013 [place] [id number] Julio Cesar Wright MD [facility] [address] Social History Tobacco Use Types Packs/Day Years [...] AM EDT TH Visit (TeleHealth) [place] [phone] Wyatt Higgins MD [facility] [place] [address] documented as of this encounter Visit Diagnoses Not on filedocumented in this encounter Care Teams Cloth Framer Relationship Specialty Start Date End Date Nanda Read MD [facility] [address] [place] [address] PCP - General 09/14/10 06/06/18 documented as of this encounter
--- OUTSIDE RECORDS SUMMARY | 2024-05-15 11:14 | XMS_ITS | Encounter Summary ---
[place] [address] Care Team Providers Care Blood Tester Name Role Phone Nanda Read MD Primary Care Provider [phone] Reason for Visit * Reason Onset Date Comments Results 06/05/2012 Encounter Details Date Type Department Care Team (Late st Contact Info) Description 06/05/2012 Telephone [place] [phone] Tracy Tavarez LPN Results Social History Tobacco [...] Telephone Encounter - Tracy Tavarez LPN - 06/05/2012 3:24 PM EDT Patient calls asking why she was started on LT4 [address] Reinoso and has now received a letter from her PCP that TSH is where it should be. Read to patient from note 05/29/12 Addendum 05/30/12: Lab for TSH showed rising TSH from 1.71 to 2.93 (optimal 0.3- 2.5 for her wt issue and fatigue), so we will start a low dose LT4 25 mcg qd. Patient with out further questions at this time. documented in this encounter Plan of Treatment Upcoming Encounters Date Type Department Care Team (Late st Contact Info) Description 02/19/2025 9:00 AM EDT TH Visit (TeleHealth) [place] [address] Wyatt Higgins MD [facility] [place] [address] documented as of this encounter Visit Diagnoses Not on filedocumented in this encounter Care Teams Blood Tester Relationship Specialty Start Date End Date Nanda Read MD [facility] [address] [place] [address] PCP - General 09/14/10 06/06/18 documented as of this encounter
--- OUTSIDE RECORDS SUMMARY | 2024-05-15 11:14 | XMS_ITS | Encounter Summary ---
Author Organization [facility] [place] [address] Care Team Providers Care Multi Craft Maintenance Technician Name Role Phone Nanda Read MD Primary Care Provider [phone] Reason for Visit * Reason Comments Diabetes Vitamin D Deficiency Encounter Details Date Type Department Care Team (Late st Contact Info) Description 11/07/2011 10:30 AM EST Office [place] [address] Judith Reinoso MD [facility] [place] [address] DM neuro manif type II, uncontrolled (Primary Dx); Unspecified vitamin D deficiency; Obesity Discharge Disposition: Home Social History Tobacco [...] Sign Reading Time Taken Comments Blood Pressure 123/67 11/07/2011 10:44 AM EST Pulse 88 11/07/2011 10:44 AM EST Temperature - - Respiratory Rate 18 11/07/2011 10:4 4 AM EST Oxygen Saturation - - Inhaled Oxygen Concentration - - Weight 109.6 kg (241 lb 9.6 oz) 012 10:44 AM EST Height 158.8 cm (5' 2.5) 11/07/2011 10 :44 AM EST Body Mass Index 43.49 11/07/2011 10:44 AM EST documented in this encounter Patient Instructions * Patient Instructions* Judith Reinoso MD - 11/07/2011 11:30 AM EST Assessment: Diabetes Type II- suboptimal control with A1c 8.3% again 3x in a row not better or worse but will get to try to keep it at 7% range soon for her neuropathy Complication Risk Status: complications present +peripheral neuropathy Also, treated for vitamin D deficiency with lowered vitamin D levels again at 18 when she missed the medation and will resume it today Plan: 1. Medication: Adjustment of diabetes treatment regimen:to check BG at night and use sliding scale as needed to keep fasting BG down 90-150 range. To cont U-500 am & early pm as before. To resume vitamin D 50,000 iu 2x/week To continue all other medications 2. Monitoring: to check FSBG before each meal and at bedtime. Target BG 80-140 while fasting and 80-150 pre-meal during daytime 1-2 h post meal below 180-200. Target A1c < 7% for this patient. 3. Diet and exercise: low fat/controlled carb diet & exercise as tolerated to keep weight down or at least stable. Patient will keep log of blood glucose and insulin used for review at next visit. 4. Lab: Already checked lab today and will let pt know all the results soon. To check lab again next time for A1c, TSH, CMP, lipids, 25-vitamin D and B12 for her neuropathy 5. RTC: Next visit in 3 months. Will check check lab locally a few days before visit with us. documented in this encounter Progress Notes * Candida Salter RN - 11/07/2011 4:19 PM EST At approx 1150, exit pediatric orthodontist called into nursing desk saying this pt out here feels her blood sugar is low. Went out with Chula Castillo RN to sec desk. Pt reports my sugar is low. Pt declined fingerstick, glucose tabs, did drink 6oz of oj. Discussed with Dr. Reinoso who advised at her visit she felt sugar was low and advised she would go eat lunch. PT did take another juice w/her and a glucose tab. Again declined anything else including a fingerstick. A/P As above. Pt left accompanied by a friend for lunch. Judith Branham MD - 11/07/2011 11:29 AM EST Endocrine Clinic Name: Martha Benoit : 1965 Date: 11/07/11 PCP: NANDA READ MD Provided by: Judith Reinoso MD Reason for visit: Follow-up diabetes Diabetes treatment regimen: U-500 0.16 ml in am and pm and sometimes lowered pm dose to avoid low at night. Humalog 8-10 u for breakfast and sliding scale for correction of high BG>150 based on 1 unit for every 10 BG ratio. Also, metformin 500 mg tid and glipizide 10 mg bid FSBG: average 180 over the past 2 weeks, ranging between 79-284 mg/dl Most recent HA1c: 8.3% on 11/02/10 Hypoglycemia during the interval time: none Diet: low fat/low carb diet Exercise: walking Complications: no changes during the interim. Prevention: same as last visit recently. She gained wt again 3 lbs over the past 3 months (total 35 lbs over 2.5 yrs) and started pool therapy 3x/week with strict diet and lost 7 lbs this past week. Reluctant to try phentermine in fear of side effects. She notes more weakness and pain in her legs. Also reduced Lyrica by herself and see ifit helps her lose wt. Denies any changes in vision, still some CP without SOB, GI issues, leg swelling or foot ulcer. ROS: Please see HPI, all others negative Patient Active Problem List Diagnoses Code ??? History of kidney stones-bilateral V13.01N ??? Cervical cancer 180.9B ??? Chronic foot pain-s/p heel spur surgeries 729.5GD ? ? Diabetic retinopathy & neuropathy 250.50X ??? Intestinal metaplasia of gastric mucosa-lower stomach-antrum 537.89D ??? Obesity 278.00M ??? Peripheral neuropathy-severe generalized 356.9K ??? Vitamin D deficiency 268.9G ??? DM renal manif type II, uncontrolled 250.42 ??? Peripheral autonomic neuropathy due to diabetes mellitus 250.60DL Current outpatient prescriptions ordered prior to encounter Medication Sig Dispense Refill ??? folic acid (FOLVITE) 1 mg tablet [...] mEq by mouth 2 times daily. ??? insulin regular CONCENTRATE U-500 (HUMULIN R U-500 CONCENTRATED) 500 unit/mL Soln Inject as directed 2 times daily. To give 0.15 ml in am and 0.2 ml in pm and adjusted as needed. 20 mL 4 ??? Insulin Syringe-Needle U-100 (INSULIN SYRINGE) 1/2 mL 30 x 5/16 Syrg by [facility].(Non-Drug; Combo Route) route 2 times daily. Using with insulin bid 1 Box 4 ??? ergocalciferol (ERGOCALCIFEROL) 50,000 unit capsule 33175 UNIT = 1 Capsule(s) , PO, twice WEEKly on Mon and Ava ??? pregabalin (LYRICA) 100 mg capsule ??? Alpha Lipoic Acid 200 mg Tab 600 MG = 3 Tablet(s), PO, Once daily ??? lisinopril (PRINIVIL;ZESTRIL) 2.5 mg tablet 2.5 MG = 1 Tablet(s), PO, Once daily ??? baclofen (LIORESAL) 10 mg tablet 10 MG = 1 Tablet(s) PO Three times daily ??? omeprazole (PRILOSEC) 40 mg capsule 40 MG = 1 Capsule(s), PO, Once daily Allergies Allergen Reactions ??? Codeine Phos Nausea And Vomiting ??? Meperidine ??? Acetaminophen-codeine Itching History Social History ??? Marital Status: Spouse Name: N/A Number of Children: N/A ??? Years of Education: N/A Occupational History ??? disabled Social History Main Topics ??? Smoking status: Never Smoker ??? Smokeless tobacco: Never Used ??? Alcohol Use: No ??? Drug Use: None ??? Sexually Active: None Other Topics Concern ??? None Social History Narrative ??? None FAMILY HISTORY Family History Problem Relation Age of Onset ??? Diabetes ??? High Cholesterol ??? Hypertension ??? Stroke ??? Obesity ??? * kidney stone ??? Psoriasis ??? * congenital malformation in her son Physical exam BP 123/67 Pulse 88 Resp 18 Ht 158.8 cm (5' 2.5) Wt 109.589 kg (241 lb 9.6 oz) BMI 43.49 kg/m2 Appearance: Obese, pleasant, NAD HEENT: PERRLA, EOMI, no retinopathy Neck: no goiter or lymphadenopathy Cardiac: normal S1, S2, no murmur Chest: CTA, no wheeze or crackle. Abdomen: benign, NT, no hepatosplenomegaly Ext: no pitting edema no foot ulcer Neuro: + weakness, depressed reflexes Assessment: Diabetes Type II- suboptimal control with A1c 8.3% again 3x in a row not better or worse but will get to try to keep it at 7% range soon for her neuropathy Complication Risk Status: complications present +peripheral neuropathy Also, treated for vitamin D deficiency with lowered vitamin D levels again at 18 when she missed the medation and will resume it today Plan: 1. Medication: Adjustment of diabetes treatment regimen:to check BG at night and use sliding scale as needed to keep fasting BG down 90-150 range. To cont U-500 am & early pm as before. To resume vitamin D 50,000 iu 2x/week To continue all other medications 2. Monitoring: to check FSBG before each meal and at bedtime. Target BG 80-140 while fasting and 80-150 pre-meal during daytime 1-2 h post meal below 180-200. Target A1c < 7% for this patient. 3. Diet and exercise: low fat/controlled carb diet & exercise as tolerated to keep weight down or at least stable. Patient will keep log of blood glucose and insulin used for review at next visit. 4. Lab: Already checked lab today and will let pt know all the results soon. To check lab again next time for A1c, TSH, CMP, lipids, 25-vitamin D and B12 for her neuropathy 5. RTC: Next visit in 3 months. Will check check lab locally a few days before visit with us. We have reviewed our plan outlined above with the patient and patient verbalized understanding. Allquestions were answered and most of the time was spent on counseling about medication adjustment and proper use of insulin, diet, exercise, cardiac risk prophylaxis, the diagnostic and therapeutic decisions, and coordination of care. Judith Reinoso MD, PhD, FACE CC: NANDA READ MD Subjective: Patient ID: Martha Benoit is a 45 y.o. female. HPI Review of Systems Objective: Physical Exam Assessment and Plan: No problem-specific visit notes found for this encounter. documented in this encounter Plan of Treatment Upcoming Encounters Date Type Department Care Team (Late st Contact Info) Description 02/19/2025 9:00 AM EDT TH Visit (TeleHealth) [place] [address] Wyatt Higgins MD [facility] [address] documented as of this encounter Visit Diagnoses Diagnosis Type II or unspecified type diabetes mellitus with neurological manifestations, uncontrolled(250.62)- Primary Type II or unspecified type diabetes mellitus with neurological manifestations, uncontrolled Unspecified vitamin D deficiency Obesity Obesity, unspecified documented in this encounter Care Teams Multi Craft Maintenance Technician Relationship Specialty Start Date End Date Nanda Read MD [facility] [address] [place] [address] PCP - General 09/14/10 06/06/18 documented as of this encounter
--- OUTSIDE RECORDS SUMMARY | 2024-05-15 11:14 | XMS_ITS | Encounter Summary ---
Author Organization [facility] [place] [address] Care Team Providers Care Data Analysis Assistant Name Role Phone Nanda Read MD Primary Care Provider [phone] Reason for Visit * Reason Comments Diabetes Encounter Details Date Type Department Care Team (Late st Contact Info) Description 05/29/2012 11:00 AM EDT Office [place] [address] Judith Reinoso MD [facility] [address] [place] [address] DM neuro manif type II, uncontrolled (Primary Dx); Unspecified vitamin D deficiency Discharge Disposition: Home Social History Tobacco [...] Sign Reading Time Taken Comments Blood Pressure 140/73 05/29/2012 11:00 AM EDT Pulse 100 05/29/2012 11:00 AM EDT Temperature - - Respiratory Rate - - Oxygen Saturation - - Inhaled Oxygen Concentration - - Weight 109.3 kg (241 lb) 05/29/2012 11:00 AM EDT Height 157.5 cm (5' 2) 05/29/2012 11:00 AM EDT Body Mass Index 44.08 05/29/2012 11:00 AM EDT documented in this encounter Patient Instructions * Patient Instructions* Judith Reinoso MD - 05/29/2012 11:40 AM EDT Assessment: Diabetes Type II - suboptimal control with A1c 8.9% (was 8.3% 3x in a row in the past) but will getto try to keep it at 7% range soon for her neuropathy Complication Risk Status: complications present +peripheral neuropathy Also, treated for vitamin D deficiency with lowered vitamin D levels again at 18 when she missed the medation and will resume it today Plan: 1. Medication: Adjustment of diabetes treatment regimen: To check BG at night and use sliding scale as needed to keep fasting BG down 90-150 range. To increase U-500 am dose from 0.12 to 0.14 ml and cont 0.12ml in pm as before. To increase vitamin D 50,000 iu 2x/week To continue [...] next visit. 4. Lab: Already checked lab last week and will let pt know all the results soon. To check lab again next time for A1c, TSH, 25-vitamin D and B12 for her neuropathy 5. RTC: Next visit in 8 months. Will check check lab locally a few days before visit with us. documented in this encounter Progress Notes * Judith Reinoso MD - 05/30/2012 3:43 PM EDTAddended by: JUDITH REINOSO on: 05/30/2012 Modules accepted: Orders * Judith Reinoso MD - 05/29/2012 11:39 AM EDT Endocrine Clinic Name: Martha Benoit : 1965 Date: 05/29/12 PCP: NANDA READ MD Provided by: Judith Reinoso MD Reason for visit: Follow-up diabetes Diabetes treatment regimen: U-500 0.12 ml in am and pm (used to take 0.16 ml). Humalog 8-10 u only for high carb meal and sliding scale for correction of high BG>150 based on 1 unit for every 10 BG ratio. Also, metformin 500 mg tid and glipizide 10 mg bid FSBG: average 180 over the past 2 weeks, ranging between 70s-300s mg/dl Most recent HA1c: 8.9% on 05/26/12 (used to 8.3% all the time before) Hypoglycemia during the interval time: none Diet: low fat/low carb diet Exercise: walking Complications: no changes during the interim. Prevention: same as last visit recently . She has some psoriasis in her ext. with some acheness when it flared up. She stopped gaining wt again after she quit Lyrica but then noted more aches from neuropathy. Her vitamin D was very low at 18and still using vitamin D 50.000 iu q2 weeks. She completed pool therapy. Reluctant to try phentermine in fear of side effects. She notes more weakness and pain in her legs. She noted some changes invision on the left eye and will need eye exam again soon. She is still having some CP occasionally without SOB. [...] 1/2 mL 30 x 5/16 Syrg by [facility] [place] [place].(Non-Drug; Combo Route) route 2 times daily. Using with insulin bid 1 Box 4 ??? ergocalciferol (ERGOCALCIFEROL) 50,000 unit capsule [id number] UNIT = 1 Capsule(s) , PO, twice WEEKly on Mon and Ava ??? lisinopril (PRINIVIL;ZESTRIL) 2.5 mg tablet 2.5 MG = 1 Tablet(s), PO, Once daily ??? baclofen (LIORESAL) 10 mg tablet 10 MG = 1 Tablet(s) PO Three times daily ??? omeprazole (PRILOSEC) 40 mg capsule 40 MG = 1 Capsule(s), PO, Once daily ??? DISCONTD: pregabalin (LYRICA) 100 mg capsule ??? DISCONTD: Alpha Lipoic Acid 200 mg Tab 600 MG = 3 Tablet(s), PO, Once daily Allergies Allergen Reactions ??? [...] malformation in her son Physical exam BP 140/73 Pulse 100 Ht 157.5 cm (5' 2) Wt 109.317 kg (241 lb) BMI 44.08 kg/m2 Appearance: Obese, pleasant, NAD HEENT: PERRLA, EOMI, no retinopathy Neck: no goiter or lymphadenopathy Cardiac: normal S1, S2, no murmur Chest: CTA, no wheeze or crackle. Abdomen: benign, NT, no hepatosplenomegaly Ext: no pitting edema no foot ulcer Neuro: no weakness, normal reflexes Assessment: Diabetes Type II - suboptimal control with A1c 8.9% (was 8.3% 3x in a row in the past) but will getto try to keep it at 7% range soon for her neuropathy Complication Risk Status: complications present +peripheral neuropathy Also, treated for vitamin D deficiency with lowered vitamin D levels again at 18 when she missed the medation and will resume it today. Addendum 05/30/12: Lab for TSH showed rising TSH from 1.71 to 2.93 (optimal 0.3- 2.5 for her wt issue and fatigue), so we will start a low dose LT4 25 mcg qd. Plan: 1. Medication: Adjustment of diabetes treatment regimen: To check BG at night and use sliding scale as needed to keep fasting BG down 90-150 range. To increase U-500 am dose from 0.12 to 0.14 ml and cont 0.12ml in pm as before. To increase vitamin D 50,000 iu 2x/week To continue [...] next visit. 4. Lab: Already checked lab last week and will let pt know all the results soon. Will follow lab locally in 6 weeks for TSH, TPO Ab & TgAb and 25vitamin D. Will help titrate LT4 & vitD dose soon if indicated To check lab again in Aug locally for A1c, TSH, 25-vitamin D and B12 for her neuropathy 5. RTC: Next visit in 8 months. Will check check lab locally a [...] Subjective: Patient ID: Martha Benoit is a 46 y.o. female. HPI Review of Systems Objective: Physical Exam Assessment and Plan: No problem-specific visit notes found for this encounter. documented in this encounter Plan of Treatment Upcoming Encounters Date Type Department Care Team (Late st Contact Info) Description 02/19/2025 9:00 AM EDT TH Visit (TeleHealth) [place] [address] Wyatt Higgins MD [facility] [place] [address] documented as of this encounter Visit Diagnoses Diagnosis Type II or unspecified type diabetes mellitus with neurological manifestations, uncontrolled(250.62)- Primary Type II or unspecified type diabetes mellitus with neurological manifestations, uncontrolled Unspecified vitamin D deficiency documented in this encounter Care Teams Data Analysis Assistant Relationship Specialty Start Date End Date Nanda Read MD [facility] [address] [place] [address] PCP - General 09/14/10 06/06/18 documented as of this encounter
--- OUTSIDE RECORDS SUMMARY | 2024-05-15 11:14 | XMS_ITS | Encounter Summary ---
Author Organization [facility] [place] [address] Care Team Providers Care Monogram Maker Name Role Phone Nanda Read MD Primary Care Provider Encounter Details Date Type Department Care Team (Late st Contact Info) Description 05/22/2013 2:45 PM EDT [place] [address] Julio Cesar Wright MD [facility] [place] [address] Hereditary peripheral neuropathy (Primary Dx); Diabetic peripheral neuropathy Discharge Disposition: Home Social History Tobacco Use [...] Reading Time Taken Comments Blood Pressure 102/60 05/22/2013 2:42 PM EDT Pulse 88 05/22/2013 2:42 PM EDT Temperature - - Respiratory Rate - - Oxygen Saturation - - Inhaled Oxygen Concentration - - Weight 108.9 kg (240 lb) 05/22/2013 2:42 PM EDT Height 158.8 cm (5' 2.5) 05/22/2013 2:42 PM EDT Body Mass Index 43.2 05/22/2013 2:42 PM EDT documented in this encounter Progress Notes * Julio Cesar Wright MD - 05/23/2013 11:28 AM EDT ... I saw and evaluated the patient with . I have reviewed the resident's history during the visit and I agree with the details as written. My neurological examination confirms the resident's findings. The assessment and plan were formulated in discussion with me at the time of the visit and Iagree with them as documented. Discussed at length with patient and family about diagnostic considerations. Explained diagnosis and treatment of PN. I went over medications, indications and side-effects. Patient understands and accepts our plan. If there are any questions or problems, they will call.Julio Cesar Wright MD * Jeanie Viera MD - 05/22/2013 3:10 PM EDT NEUROLOGY CLINIC [facility] M[place] [address] Facsimile: 05/22/2013 Neurology Consultation Patient: Martha Benoit : 1965 Referring provider: Nanda Read MD [facility] [address] [place] [address] Reason for Referral: We are seeing this patient for reevaluation of Weakness and balance problems. HPI: Martha Benoit is a 47 y.o. year old right-handed female With a history of progressive symptoms for many years. She was last seen in our clinic in 2010. We felt that her progressive weakness and balance difficulties were the result of a generalized peripheral neuropathy, possibly a combination of both peripheral neuropathy and an inherited neuropathy. Of a lipoid acid was recommended, as was symptomatic management. She returns noting worsening of her symptoms over the interim time period. Her left foot has alwaysbeen weaker than the right, and she is unable to move left toes and really unable to move much of the left foot. About 2 months ago, she lost ability to move her right toes. Strength proximally is quite good, and she feels that her upper extremities are quite strong. Balance is a big issue for her,she has a lot of difficulty walking because of balance and has to use a walker. She is very embarrassed about going out in social situations because of this. She does endorse numbness and tingling which has progressed, now up to the mid thigh on the left and to the knee on the right. The numbness and tingling involves her whole leg. She notes some slight tingling of the very tips of her fingers. For symptomatic relief, she takes gabapentin 2 tablets at bedtime. She's not sure of the dose. She was told to take 3 and that he is taking medicines that she has stayed on the 2. She occasionally uses a Lidoderm patch if things are really bad. She tried Lyrica before but did not feel that it helped her. She is no longer taking alpha lipoid acid because she felt like she got worse despite taking this. She has been doing physical therapy up until a few months ago. She has developed some low back pain, which is centered in her low back and does not radiate anywhere. She has had an MRI of the lumbar spine and was evaluated in the spine Center. She did not think that it was very helpful. She is wondering if her symptoms might be coming from her back. Overall, she is very concerned that she is becoming a cripple. She does not think that her symptoms sound like what most people with peripheral neuropathy. She wants to know if there is anything else that might be considered in the differential. Symptom Patient Family High arches Curled toes Numbness of feet/hands y sister Painful feet y sister Burning of feet y sister Soaks feet Skinny legs Cramps y Twist ankles easily Difficulty buying shoes Needed corrective shoes Use of cane/crutches History of foot surgery Casting of feet as a child PMHx: Patient Active Problem List Diagnoses Code ??? [...] diabetes mellitus 250.60 ??? Unspecified hypothyroidism 244.9 History reviewed. No pertinent past medical history. Past Surgical History Procedure Date ??? Created by interface excision of a left foot heel spur in 11/2004 Procedure Date: Nov 2004 ??? Created by interface PRK for hyperopic astigmatism OU in 06/2004 Procedure Date: Jun 2004 ??? Created by interface tubal ligation BL Procedure Date: Unknown ??? Upper gi endoscopy, exam 11/16/2011 UPPER GI ENDOSCOPY performed by ALISA RICHARDS at [facility] ??? Upper gi endoscopy, biopsy 11/16/2011 EGD WITH BIOPSY performed by ALISA RICHARDS at [facility] Medications: Current Outpatient Prescriptions on File Prior to [...] 1/2 mL 30 x 5/16 Syrg by [facility].(Non-Drug; Combo Route) route 2 times daily. Using with insulin bid 1 Box 4 Allergies: Allergies Allergen Reactions ??? Acetaminophen-Codeine Itching ??? Codeine Phosphate Nausea And Vomiting ??? Meperidine Other family history: as above; in addition, There are multiple, multiple family members with diabetes and her sister developed A. Peripheral neuropathy in her 30s. She unexpectedly of unknown causes at age 39. She recalls her father having some problems with his feet but she is not sure if heis her biological father. He did not problems to the degree that she has. He suffered a stroke. Social history: ?pesticide Exposure as child. 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 reports that she has never smoked. She has never used smokeless tobacco. She reports that she does not drink alcohol oruse illicit drugs. ROS: General: no fevers or chills, denies weight change, denies fatigue Eyes: denies vision change, diplopia ENT: no dysphagia, denies rhinorrhea. CVS: denies CP, palpitations Respiratory: denies SOB, denies cough, GI: no abdominal discomfort, no nausea/vomiting. : no incontinence Heme: No history of bleeding disorder Musculoskeletal: Positive for low back pain Skin: no rashes or bruises Endocrine: Diabetes, poorly controlled, sugars usually in the 200s, on insulin, last hemoglobin A1c8.4 Neuro: see HPI Psych: Feels very frustrated about her situation. Has been avoiding social situations. Physical Exam: VS: Blood pressure 102/60, pulse 88, height 158.8 cm (5' 2.5), weight 108.863 kg (240 lb). Temp: -- Heart Rate: [88] Resp: -- BP: (102)/(60) SpO2: -- General: nondiaphoretic, no acute distress. Head/Neck: normocephalic/atraumatic. Oropharynx clear. Neck supple, no pain to palpation of neck. CV: regular rate/rhythm, no murmurs/rubs/gallops. No carotid bruits ascultated. Pulm: clear to auscultation bilaterally. Extremities: no edema, no joint abnormalities. Neuro: Mental Status: alert, oriented to person, place and time. HEENT/CN: PERRL, EOMI, no ptosis, visual vivas intact. Facial sensation intact, muscles of mastication normal Symmetric smile, eyelids closed equally. Palate elevated symmetrically, midline tongue, no dysarthria. Motor: Segment Muscle Action Right Left C5 Deltoids Biceps Shoulder abduction Elbow flexion 5/5 5/5 C6 Extensor carpi radialis Wrist extension 5/5 5/5 C7 Triceps Elbow extension 5/5 5/5 C8, T1 Hand intrinsics Thumb abduction (rad) Finger flex/ABP (med) Finger abduction (ulnar) 5/5 4/5 4/5 5/5 4/5 4/5 L2 Iliopsoas Hip flexion 5/5 5/5 L3 Quadriceps Knee extension 5/5 5/5 L5-S2 Biceps femoris Knee flexion 5/5 5/5 L4 Tibialis anterior Dorsiflexion 2/5 0/5 L5 Extensor hallucis Great toe extension 1/5 0/5 S1 Gastrocnemius Plantar flexion 1/5 0/5 there is some atrophy of the first interosseous and thenar eminences bilaterally No pronator drift. No tremor or abnormal movements. Reflex: RIGHT LEFT Biceps 2 2 Brachioradialis 2 2 Triceps Patellar 0 0 Ankle 0 0 Plantar response (Babinski) down down Sensation: Sensation to sharp is diminished from just below the knees distally on both legs. Sensation to temperature is okay. Vibratory sense is diminished in the Feet and ankles, intact at the knees, Mildly diminished in the hands. Toe proprioception was mixed. Romberg was positive. Coordination: Normal [id number], rapid alternating movements are normal in the upper extremities and she is unable to tap her feet Romberg present Gait: Wide-based, steppage gait with footdrop prominent on the left DATA: [facility] hemoglobin A1c 8.9% on 05/26/12 prior lab studies from several years ago have included a B12 of 311, Normal TSH, negative CHERIE, Normal ESR, SPEP which showed no M band. CK was 221 EMG/NCS 2010 NCS: Absent peroneal and tibial responses On the left, left ulnar motor response showed a conduction velocity of 43 and low amplitude, radial sensory was absent. IMAGING Assessment and Plan: Martha Benoit is a 47 y.o. year old female with Progressive difficulty with balance and weakness , along with paresthesias. Symptoms are more severe than what one would expect for an isolated diabetic peripheral neuropathy. We suspect that she most likely has a hereditary peripheral neuropathy. Also in the differential would be an autoimmune peripheral neuropathy, for which she has not had previous antibody testing for. We discussed these two diagnostic possibilities with her today. She would like to pursue antibody testing. It is unfortunate that most likely there is not anything we can do to slow the progress of this, other than ensure that her blood sugars are in good control and her diabetes is optimally managed. Diagnostic plan: ?? sensorimotor peripheral neuropathy panel from [place]; We discussed genetic testing for hereditary neuropathy with her but told her that it may not identify a cause of her problems and that it would not alter the course of treatment ?? It might be worthwhile having her primary care provider check a vitamin B12 level during her next blood draw just to be sure that it is not low, as we want to ensure that there are no other contributing factors for her neuropathy. Therapeutic plan: ?? she could increase her gabapentin. We typically have patients on at least 300 mg 3 times a day. I understand about her hesitancy to take more medication. Gabapentin is purely for symptomatic relief and is up to her whether she would like to use more of it or not. She is using a Lidoderm patch intermittently, which is good. Another option might be compounding creams specifically created for treatment of neuropathic pain, which can be obtained from a compounding pharmacy ( there is one in [facility]). Followup with her PCP. I will call her to inform her of the results of these tests. Jeanie Viera MD, MPH Neurophysiology fellow documented in this encounter Miscellaneous Notes * Addendum Note - Kitty Main - 05/22/2013 4:31 PM EDTAddended by: KITTY MAIN on: 05/22/2013 04:31 PM Modules accepted: Orders documented in this encounter Plan of Treatment Upcoming Encounters Date Type Department Care Team (Late st Contact Info) Description 02/19/2025 9:00 AM EDT TH Visit (TeleHealth) [place] [address] Wyatt Higgins MD [facility] [place] [address] documented as of this encounter Procedures Procedure Name Priority Date/Time Associated Diagnosis Comments MISCELLANEOUS LAB REQUEST Routine 05/22/2013 4:48 PM EDT Hereditary peripheral neuropathy [facility] SENDOUT Routine 05/22/2013 4:41 PM EDT documented in this encounter Results * Miscellaneous Lab request (05/22/2013 4:48 PM EDT) [facility] Lab Result Request received in lab. [facility] Specimen of unknown material (specimen) 05/22/2013 4:48 PM EDT 05/22/2013 4:53 PM EDT Julio Cesar Wright MD HEMATOLOGY ORDERABLE S Performing Organization Address [facility] de Phone Number [facility] * [facility] Sendout (05/22/2013 4:41 PM EDT) [facility] Sendout See Note [facility] Comment: The ordered test is: SensoriMotor Neuropathy Profile-Complete Test performed by: [facility], [address] [address] The test result is: Please see scanned report in Chart Review under the Non- Laboratory Heading. Specimen of unknown material (specimen) 05/22/2013 4:41 PM EDT 05/28/2013 2:12 PM EDT Julio Cesar Wright MD CHEMISTRY ORDERABLES Performing Organization Address City/[facility]/ZIP Co de Phone Number [facility] documented in this encounter Visit Diagnoses Diagnosis Hereditary peripheral neuropathy(356.0)- Primary Hereditary peripheral neuropathy Diabetic peripheral neuropathy Type II or unspecified type diabetes mellitus with neurological manifestations, not stated as uncontrolled documented in this encounter Care Teams Monogram Maker Relationship Specialty Start Date End Date Nanda Read MD [facility] [address] [place] [address] PCP - General 09/14/10 06/06/18 documented as of this encounter
--- OUTSIDE RECORDS SUMMARY | 2024-05-15 11:14 | XMS_ITS | Encounter Summary ---
Author Organization [facility] [place] [address] Care Team Providers Care Airport Operations Duty Manager Name Role Phone Nanda Read MD Primary Care Provider [phone] Encounter Details Date Type Department Care Team (Late st Contact Info) Description 12/24/2010 1:30 PM EST Office [place] [address] Judith Reinoso MD [facility] [place] [address] Discharge Disposition: Home Social History Tobacco Use [...] AM EDT TH Visit (TeleHealth) [place] [address] Wyatt Higgins MD [facility] [address] documented as of this encounter Procedures Procedure Name Priority Date/Time Associated Diagnosis Comments VITAMIN D, 25-HYDROXY Routine 12/24/2010 1:50 PM EST [facility] 12/24/2010 1:50 PM EST HEMOGLOBIN A1C [facility] 12/24/2010 1:50 PM EST BASIC METABOLIC PANEL (NON-FASTING) [facility] 12/24/2010 1:50 PM EST documented in this encounter Results * (ABNORMAL) BASIC METABOLIC PANEL (NON-FASTING) (12/24/2010 1:50 PM EST) Glucose Lvl 209(H) 60 - 199 mg/dL [facility] Comment:Diabetes: >=200 mg/d L plus symptoms BUN 13 8 - 18 mg/dL [facility] Creatinine 0.50(L) 0.70 - 1.20 mg/dL [facility] Sodium 136 135 - 145 mmol/L [facility] Potassium 3.9 3.5 - 5.0 mmol/L [facility] Comment: Please note: ??Patients with WBC >100,000 may have falsely elevated Potassium levels. ??For accurate Potassium quantification in these patients send serum separator tube (gold top) for subsequent determinations. ??Contact the Clinical Chemistry Laboratory if there are any questions. Chloride 100 98 - 107 mmol/L [facility] CO2 25 22 - 31 mmol/L [facility] Anion Gap 11 5 - 15 mmol/L [facility] Calcium 9.0 8.5 - 10.5 mg/dL [facility] Estimated GFR >60 >=60 [facility] Comment: The National Kidney Disease Education Program (NKDEP) has recommended all laboratories report estimated GFR (eGFR) along with plasma creatinine measurements to assist you with recognition of early kidney disease. Caveats: ??Plasma creatinine should be at steady-state (unchanged within the past week). ??Patient age > = 18 years, and for Americans multiply eGFR by 1.2. At present, NKDEP does NOT recommend using the MDRD equation for drug dosing purposes and pharmacists should continue to use their current dosing methods. In addition, numerical eGFR values greater than 60 ml/min/1.73 square meters should be treated as > 60, and not an exact number due to greater inaccuracies at these higher values. Per NKDEP, they classify normal renal function as any GFR >60ml/min/1.73 square meters; chronic kidney disease when GFR <60, and renal failure when GFR <15. ??This calculation may not be valid for patients with atypical muscle mass (very lean or obese), acute renal failure, and in patients with diabetic kidney disease. References: http://nkdep.nih.gov/resources/NKDEP_Suggestn4Labs_0606_508.pdf http://www.kidney.org/professionals/kls/pdf/faq_gfr.pdf Blood specimen (specimen) 12/24/2010 1:50 PM EST 12/24/2010 2:00 PM EST Judith Reinoso MD CHEMISTRY ORDERAB LES Performing Organization Address [facility] Co de Phone Number [facility] * TSH (12/24/2010 1:50 PM EST) TSH 1.73 0.27 - 4.20 mcIU/mL [facility] Comment: Cord Blood Reference Range: ??0.35 23.00 mcIU/mL Blood specimen (specimen) 12/24/2010 1:50 PM EST 12/24/2010 2:00 PM EST Judith Reinoso MD CHEMISTRY ORDERAB LES [facility] * (ABNORMAL) HEMOGLOBIN A1C (12/24/2010 1:50 PM EST) Hemoglobin A1C 8.5(H) 4.3 - 6.1 % [facility] Est Avg Gluc 197 mg/dL [facility] Comment: eAG equivalents for HbA1c percentages: HbA1c(%) ?eAG(mg/dL) 6.0 ?126 6.5 ?140 7.0 ?154 7.5 ?169 8.0 ?183 8.5 ?197 9.0 ?212 9.5 ?226 10.0 ? 240 Limitations: The eAG calculation has not been validated on women, individuals below 18 years old and above 70 years old, and individuals with hemoglobinopathies. Additional resources are available on the ADA website: ??http://professional.diabetes.org/glucosecalculator.aspx Reference: Maurice GODINEZ, Marion J, Miriam R, et al. ??Translating the A1C assay into estimated average glucose values. ??Diabetes Care 2008:31(8):8078-1791. Blood specimen (specimen) 12/24/2010 1:50 PM EST 12/24/2010 1:59 PM EST Judith Reinoso MD CHEMISTRY ORDERAB LES Performing Organization Address City/State/[facility] Co de Phone Number [facility] * VITAMIN D 25 HYDROXY (12/24/2010 1:50 PM EST) 25-Hydroxy D2 26 ng/mL [facility] Comment: Test Performed by: [facility] [place] [address] Pharmacy Grad Intern: Monisha Lozada, Ph.D. 25-Hydroxy D3 2.5 ng/mL [facility] Comment: Test Performed by: [facility] [address] [address] Pharmacy Grad Intern: Monisha Lozada, Ph.D. 25-OH Vit D Total 29 ng/mL [facility] Comment: -- REFERENCE VALUE -- 25-HYDROXY D TOTAL (D2+D3) Optimum levels in the normal population are 25-80 Test Performed by: [facility] [place] [address] Pharmacy Grad Intern: Monisha Lozada, Ph.D. Blood specimen (specimen) 12/24/2010 1:50 PM EST 12/24/2010 2:54 PM EST Judith Reinoso MD CHEMISTRY ORDERAB LES [facility] documented in this encounter Visit Diagnoses Not on filedocumented in this encounter Care Teams Airport Operations Duty Manager Relationship Specialty Start Date End Date Nanda Read MD [facility] [address] [place] [address] PCP - General 09/14/10 06/06/18 documented as of this encounter
--- OUTSIDE RECORDS SUMMARY | 2024-05-15 11:14 | XMS_ITS | Encounter Summary ---
Author Organization [facility] [place] [address] Care Team Providers Care Soaker Helper Name Role Phone Nanda Read MD Primary Care Provider Reason for Visit * Reason Onset Date Comments Medication Refill 07/17/2012 Encounter Details Date Type Department Care Team (Late st Contact Info) Description 07/17/2012 Ref[place] [address] Judith Reinoso MD [facility] [place] [address] Social History Tobacco Use Types Packs/Day Years [...] AM EDT TH Visit (TeleHealth) [place] [address] Wyatt Higgins MD [facility] [place] [address] documented as of this encounter Visit Diagnoses Not on filedocumented in this encounter Care Teams Soaker Helper Relationship Specialty Start Date End Date Nanda Read MD [facility] [address] [place] [address] PCP - General 09/14/10 06/06/18 documented as of this encounter
--- OUTSIDE RECORDS SUMMARY | 2024-05-15 11:14 | XMS_ITS | Encounter Summary ---
Author Organization [facility] [place] [address] Care Team Providers Care Geophysical E Logger Name Role Phone Nanda Read MD Primary Care Provider [phone] Encounter Details Date Type Department Care Team (Late st Contact Info) Description 07/18/2011 [place] [address] Kassie Evans, RN History of kidney stones-bilateral; Obesity; Cervical cancer Social History Tobacco Use Types Packs/Day Years [...] AM EDT TH Visit (TeleHealth) [place] [phone] Wyatt Higgins MD [facility] DR NEUROLOGY DEPT. [place], [place] [id number] documented as of this encounter Visit Diagnoses Diagnosis History of kidney stones-bilateral Personal history of urinary calculi Obesity Obesity, unspecified Cervical cancer Malignant neoplasm of cervix uteri, unspecified site documented in this encounter Care Teams Geophysical E Logger Relationship Specialty Start Date End Date Nanda Read MD [facility] [address] [place] [address] PCP - General 09/14/10 06/06/18 documented as of this encounter
--- OUTSIDE RECORDS SUMMARY | 2024-05-15 11:14 | XMS_ITS | Encounter Summary ---
Author Organization [facility] [place] [address] Care Team Providers Care Advertising Rep Name Role Phone Nanda Read MD Primary Care Provider [phone] Encounter Details Date Type Department Care Team (Late st Contact Info) Description 05/21/2013 [place] [phone] Julio Cesar Wright MD [facility] [place] [address] Social History Tobacco Use Types Packs/Day Years [...] AM EDT TH Visit (TeleHealth) [place] [phone] Wyatt Higgins MD [facility] [place] [address] documented as of this encounter Visit Diagnoses Not on filedocumented in this encounter Care Teams Advertising Rep Relationship Specialty Start Date End Date Nanda Read MD [facility] [address] [place] [address] PCP - General 09/14/10 06/06/18 documented as of this encounter
--- OUTSIDE RECORDS SUMMARY | 2024-05-15 11:14 | XMS_ITS | Encounter Summary ---
Author Organization [facility] [place] [address] Care Team Providers Care Machine Setter Supervisor Name Role Phone Nanda Read MD Primary Care Provider Reason for Visit * Reason Onset Date Comments Labs Only 05/09/2011 Encounter Details Date Type Department Care Team (Late st Contact Info) Description 05/09/2011 Tele[place] [address] Judith Reinoso MD [facility] DR ENDOCRIN[place] [address] Labs Only Social History Tobacco Use Types Packs/Day Years Used Date Smoking Tobacco: Never Assessed Sex and Gender Information Value Date Recorded Sex Assigned at Not on file Gender Identity Female 08/26/2018 10:19 PM EST Sexual Orientation Not on file documented as of this encounter Miscellaneous Notes * Telephone Encounter - Judith Reinoso MD - 05/09/2011 5:43 PM EDT lab documented in this encounter Plan of Treatment Upcoming Encounters Date Type Department Care Team (Late st Contact Info) Description 02/19/2025 9:00 AM EDT TH Visit (TeleHealth) [place] [address] Wyatt Higgins MD [facility] [place] [address] documented as of this encounter Visit Diagnoses Diagnosis Type II or unspecified type diabetes mellitus without mention of complication, uncontrolled Fatigue Other malaise and fatigue documented in this encounter Care Teams Machine Setter Supervisor Relationship Specialty Start Date End Date Nanda Read MD [facility] [address] [place] [address] PCP - General 09/14/10 06/06/18 documented as of this encounter
--- OUTSIDE RECORDS SUMMARY | 2024-05-15 11:14 | XMS_ITS | Encounter Summary ---
Author Organization [facility] [place] [address] Care Team Providers Care Lead Ingot Molder Name Role Phone Nanda Read MD Primary Care Provider [phone] Reason for Visit * Reason Comments Diabetes Encounter Details Date Type Department Care Team (Late st Contact Info) Description 07/19/2011 9:00 AM EDT Office [place] [address] Judith Reinoso MD [facility] [address] [place] [address] DM w/o complication type II, uncontrolled (Primary Dx) Discharge Disposition: Home Social History [...] Sign Reading Time Taken Comments Blood Pressure 140/69 07/19/2011 9:01 AM EDT Pulse 90 07/19/2011 9:01 AM EDT Temperature - - Respiratory Rate - - Oxygen Saturation - - Inhaled Oxygen Concentration - - Weight 108 kg (238 lb) 07/19/2011 9:01 AM EDT Height 157.5 cm (5' 2) 07/19/2011 9:01 AM EDT Body Mass Index 43.53 07/19/2011 9:01 AM EDT documented in this encounter Progress Notes * Judith Reinoso MD - 07/19/2011 9:32 AM EDT Subjective: Endocrine Clinic Martha Benoit 1965 [id number] Date: 07/19/11 PCP: Siena READ MD Provided by: Judith Reinoso MD Patient ID: Martha Benoit is a 45 y.o. female. HPI Reason for visit: Follow-up diabetes Diabetes treatment regimen: U-500 0.1ml (50 units) bid FSBG: average 140 over the past 2 weeks, ranging between 50s-200s mg/dl typically at target [id number] range Most recent HA1c: 8.3% on 05/20/11 Hypoglycemia during the interval time: yes at night down to 50 once when she used U-500 at bedtime instead of pre-dinner Diet: low fat/low carb diet Exercise: walking Complications: no changes during the interim. Prevention: same as last visit recently Review of Systems ROS: Please see HPI, all others negative [...] adjusted as needed. 20 mL 4 ??? ergocalciferol (ERGOCALCIFEROL) 50,000 unit capsule 16098 UNIT = 1 Capsule(s) , PO, twice WEEKly on Mon and Ava ??? pregabalin (LYRICA) 100 mg capsule ??? lisinopril (PRINIVIL;ZESTRIL) 2.5 mg tablet 2.5 MG = 1 Tablet(s), PO, Once daily ??? baclofen (LIORESAL) 10 mg tablet 10 MG = 1 Tablet(s) PO Three times daily ??? omeprazole (PRILOSEC) 40 mg capsule 40 MG = 1 Capsule(s), PO, Once daily ??? Insulin Syringe-Needle U-100 (INSULIN SYRINGE) 1/2 mL 30 x 5/16 Syrg by [facility].(Non-Drug; Combo Route) route 2 times daily. Using with insulin bid 1 Box 4 ??? Alpha Lipoic Acid 200 mg Tab [...] ??? * congenital malformation in her son Objective: Physical Exam Physical exam BP 140/69 Pulse 90 Ht 157.5 cm (5' 2) Wt 107.956 kg (238 lb) BMI 43.53 kg/m2 Appearance: Obese, pleasant, NAD HEENT: PERRLA, EOMI, no retinopathy Neck: no goiter or lymphadenopathy Ext: no pitting edema no foot ulcer Neuro: no weakness, normal reflexes Assessment: Diabetes Type II- improving control with BG down to 80-180 mg/dl and even low BG occasionally and requiring a lot less insulin. Also, started diet modification a week ago which helped her to loose wtdown 2 lbs since last month. Complication Risk Status: complications present Also, treated for vitamin D deficiency and peripheral neuropathy. Plan: 1. Medication: Adjustment of insulin regimen: Ok to allow her to adjust U-500 0.1 ml bid and down by 0.01-0.02ml at a time To continue all other medications 2. Monitoring: to check FSBG before each meal and at bedtime. Target BG 80-140 while fasting and 80-150 pre-meal during daytime 1-2 h post meal below 180-200. Target A1c < 7% for this patient. 3. Diet and exercise: low fat/controlled carb diet & exercise as tolerated to keep weight down or at least stable. Info on carb counting was reviewed with the patient again today. Patient will keep log of blood glucose, carb intake and insulin used for review at next visit. 4. Lab: To check lab in 2 months locally for A1c, BMP, 25-vitamin D, and annual urine microalbumin/Cr ratio. 5. RTC: Next visit in 2 months. We have reviewed our plan outlined above with the patient and patient verbalized understanding. Allquestions were answered and most of the time was spent on counseling about medication adjustment and proper use of insulin, diet, exercise, cardiac risk prophylaxis, the diagnostic and therapeutic decisions, and coordination of care. uJdith Reinoso MD, PhD, FACE CC: NANDA READ MD documented in this encounter Plan of Treatment Upcoming Encounters Date Type Department Care Team (Late st Contact Info) Description 02/19/2025 9:00 AM EDT TH Visit (TeleHealth) [place] [address] Wyatt Higgins MD [facility] [place] [address] documented as of this encounter Visit Diagnoses Diagnosis Type II or unspecified type diabetes mellitus without mention of complication, uncontrolled- Primary documented in this encounter Care Teams Lead Ingot Molder Relationship Specialty Start Date End Date Nanda Read MD [facility] [address] [place] [address] PCP - General 09/14/10 06/06/18 documented as of this encounter
--- OUTSIDE RECORDS SUMMARY | 2024-05-15 11:14 | XMS_ITS | Encounter Summary ---
Author Organization [facility] [place] [address] Care Team Providers Care Meteorological Observer Name Role Phone Nanda Read MD Primary Care Provider [phone] Reason for Visit * Reason Comments Back Pain Bilateral Leg Pain Foot Drop Encounter Details Date Type Department Care Team (Late st Contact Info) Description 05/22/2013 7:20 AM EDT Office [place] [address] Shan Valdez MD [facility] [place] [address] Peripheral neuropathy-severe generalized (Primary Dx) Discharge Disposition: [...] Time Taken Comments Blood Pressure 102/60 05/22/2013 7:50 AM EDT Pulse - - Temperature - - Respiratory Rate - - Oxygen Saturation - - Inhaled Oxygen Concentration - - Weight 108.9 kg (240 lb) 05/22/2013 7:50 AM EDT Height 157.5 cm (5' 2) 05/22/2013 7:50 AM EDT Body Mass Index 43.9 05/22/2013 7:50 AM EDT documented in this encounter Patient Instructions * Patient Instructions* Benita Monsalve, VÍCTOR - 05/22/2013 7:55 AM EDT Welcome to [employer], your secure online access to your electronic medical record at [facility]. Using [employer] you will be able to send messages to your providers, view your test results, renew prescriptions, schedule appointments, and much more. Follow these instructions to enter your personal [employer] account for the first time: 1. Start your internet browser and type [email or web address] into the address bar. 2. In the New User box on the right-hand side of the Welcome page click the link that states, ???I have an activation code.?? 3. On the Identification page, follow these steps: a) Enter your [employer] activation code: [email or web address] b) Expires: 07/06/2013 7:56 AM IMPORTANT: This Activation Code will on the above mentioned date. If you do not sign up for [employer] by this date, you will need to request another activation code. c) Enter your date of , using the calendar tool provided. d) Enter your Zip code. e) Select ???submit?? to go to the next page. 4. On the Create Account page, follow these steps: a) Create a [employer] username. This can???t be changed, so choose one you won???t forget. b) Create a password that???s at least six characters long, and that contains at least two numbers.Your password can be changed at any time. Confirm your password by entering it once more. c) Enter your email address. This will be used to alert you to new information. Confirm your email address by entering it once more. d) Enter your security question. This will be used if you forget your password. e) Enter your security answer. Confirm your security answer by entering it once more. f) Select ???submit?? to view your electronic medical record. If you have any questions about [employer] or your Access Code, please call for [place], for [place] or for [place]. If you need technical support, please e-mail [email or web address]. Remember, my[employer]-H is NOT for urgent needs! Always dial 911 for medical emergencies. documented in this encounter Progress Notes * Shan Valdez MD - 05/22/2013 8:43 AM EDT Chief complaint: Bilateral lower extremity numbness and weakness, peripheral neuropathy, secondary complaint of mechanical lower back pain Subjective: For several years now she's had a gradually progressive problem with distal lower extremity numbness and weakness with left side footdrop starting about 2 years ago and now recently beginning to have similar weakness on the right side. Overall she describes her sensation in her legs haswalking a peripheral without knowing where the bottom as. Her numbness has ascended now to the mid thigh on the left and to the knee on the right. A year ago without injury or incident she began having an annoyance level pressure sensation in the lumbosacral area on a mechanical basis. She's had some general physical therapy and massage therapy and at times his been told she may have some mass effect in the lumbosacral area but this was not explained well by recent lumbar spine MRI. She is hereto review the possibility that there is a spinal source for her lower extremity problems. She noteshigh-level of anxiety and fear about progressive disability. Objective: Her affect is relatively bright. She is quite overweight. She stands without evident spinal deformity. She has psoriatic lesions. Trunk flexibility through the waist while standing is quite well-preserved with 15?? extension and 90?? forward flexion neither of which causes any symptoms at end ranges notably no aggravation of any of her lower extremity symptoms. Gross touch sensation is dysesthetic and diminished in a peripheral distribution both lower extremities. She cannot resist gravity with ankle dorsiflexion on the left and has only minor action against resistance with dorsiflexion on the right. She's not able to achieve heel raises on either side, weightbearing. I'm not able to get knee jerks or ankle jerks. Her MRI of the thoracic and lumbar spine from 01/02 were reviewed with her. She has a very small disc protrusion at the T8-9 level but at no level does she have any cord compression or change in cord signalon T2 imaging. Her lumbar spine MRI is essentially normal though she does have facet arthropathy with some asymmetry to her fat and muscle mass at the lumbosacral junction but no mass lesion. Assessment: We really do not have a good spinal explanation for her progressive lower extremity sensory and motor changes. She is going to be reviewing her problems from a neurologic point of view with the neurology staff this afternoon. In terms of functional preservation, she has been using a walker and at the grocery store she uses a cart, and efforts at fitting an AFO on the left apparently been problematic but certainly doing best she can from a rehabilitation point of view with cane, walker and appropriate AFO support would be reasonable in the long run. Have also given her a copy of the book treat your own back for ideas about mechanical self-care for her relatively minor problem of discomfort in the lower back. documented in this encounter Plan of Treatment Upcoming Encounters Date Type Department Care Team (Late st Contact Info) Description 02/19/2025 9:00 AM EDT TH Visit (TeleHealth) [place] [address] Wyatt Higgins MD [facility] [place] [place] [address] documented as of this encounter Visit Diagnoses Diagnosis Peripheral neuropathy-severe generalized- Primary Unspecified hereditary and idiopathic peripheral neuropathy documented in this encounter Care Teams Meteorological Observer Relationship Specialty Start Date End Date Nanda Read MD [facility] [address] [place] [address] PCP - General 09/14/10 06/06/18 documented as of this encounter
--- OUTSIDE RECORDS SUMMARY | 2024-05-15 11:14 | XMS_ITS | Encounter Summary ---
Author Organization [facility] [place] [address] Care Team Providers Care Gunner'S Mate G Name Role Phone Nanda Read MD Primary Care Provider Encounter Details Date Type Department Care Team (Late st Contact Info) Description 05/30/2012 External Results [place] [phone] Judith Reinoso MD [facility] [place] [address] Social History Tobacco Use Types Packs/Day Years [...] AM EDT TH Visit (TeleHealth) [place] [address] Wyatt Higgins MD [facility] [place] [address] documented as of this encounter Procedures Procedure Name Priority Date/Time Associated Diagnosis Comments LAB SCAN Routine 05/26/2012 documented in this encounter Results * Scan Doc: Lab (05/26/2012) Judith Reinoso MD MEDIA MGR SCAN EX T ORDR/RSLT documented in this encounter Visit Diagnoses Not on filedocumented in this encounter Care Teams Gunner'S Mate G Relationship Specialty Start Date End Date Nanda Read MD [facility] [address] [place] [address] PCP - General 09/14/10 06/06/18 documented as of this encounter
--- OUTSIDE RECORDS SUMMARY | 2024-05-15 11:14 | XMS_ITS | Encounter Summary ---
Author Organization [facility] Address [facility] [place] [address] Care Team Providers Care Sulfide Head Operator Name Role Phone Nanda Read MD Primary Care Provider [phone] Encounter Details Date Type Department Care Team (Latest Contact Info) Description 05/23/2013 12:58 PM EDT - 05/23/2013 11:59 PM EDT [place] [address] Judith Reinoso MD [facility] [place] [address] Discharge Disposition: Home Social History Tobacco Use [...] the skin every 12 hours as needed. Liraglutide (VICTOZA) 0.6 mg/0.1 mL (18 mg/3 mL) PnIj Inject 1.8 mg subcutaneously daily. 3 pens = 1 month; 9 pens = 3 months 9 Pen 3 05/23/2013 07/01/2014 gabapentin (NEURONTIN) 100 mg capsule Take 100 mg by mouth every evening. 04/29/2014 baclofen (LIORESAL) 10 mg tablet Take 10 mg by mouth 4 times daily. 03/08/2021 ergocalciferol (VITAMIN D) 50,000 unit capsule Take 1 capsule by mouth twice a week. 11/08/2015 lisinopril (PRINIVIL;ZESTRIL) 2.5 mg tablet Take 2.5 mg by mouth daily. 12/23/2015 omeprazole (PRILOSEC) 40 mg capsule Take 40 mg by mouth daily. 11/03/2015 insulin regular CONCENTRATE U-500 (HUMULIN R U-500 CONCENTRATED) 500 unit/mL Soln Inject subcutaneously 2 times daily. 0.14 ML in AM (14 Unit marques on syringe), 0.12 ML PM (12 unit marques on syringe) 20 mL 4 07/17/2012 08/02/2013 levothyroxine (SYNTHROID) 25 mcg tablet Take 1 [...] 30 x 5/16 Syrg by [facility]Non-Drug; Combo Route) route 2 times daily. Using with insulin bid 1 Box 4 06/03/2011 04/06/2017 documented as of this encounter Plan of Treatment Upcoming Encounters Date Type Department Care Team (Late st Contact Info) Description 02/19/2025 9:00 AM EDT TH Visit (TeleHealth) [place] [address] Wyatt Higgins MD [facility] [place] [address] documented as of this encounter Procedures Procedure Name Priority Date/Time Associated Diagnosis Comments THYROGLOBULIN ANTIBODY Routine 3 1:25 PM EDT THYROID PEROXIDASE ANTIBODY Routine 05/23/2013 1:25 PM EDT VITAMIN D, 25-HYDROXY Routine 05/23/2013 1:25 PM EDT TSH Routine 05/23/2013 1:25 PM EDT HEMOGLOBIN A1C Routine 05/23/2013 1:25 PM EDT VITAMIN B12 Routine 05/23/2013 1:25 PM EDT CORTISOL Routine 05/23/2013 1:25 PM EDT LIPID PANEL (REFLEX DIRECT LDL) Routine 05/23/2013 1:25 PM EDT COMPREHENSIVE METABOLIC PANEL (NON-FASTING) Routine 05/23/2013 1:25 PM EDT documented in this encounter Results * Cortisol (05/23/2013 1:25 PM EDT) Pathologist [facility] Cortisol 10.1 mcg/dL [facility] Comment: Reference ranges: ??AM (7-10am): ??6.2-19.4 mcg/dL ??PM (4-8pm): ??2.3-12.3 mcg/dL Blood specimen (specimen) 05/23/2013 1:25 PM EDT 05/23/2013 1:32 PM EDT Narrative Resulting Agency Comment Spec In Lab Judith Reinoso MD CHEMISTRY ORDERAB LES [facility]ENIAPHOEBE [facility] * (ABNORMAL) Lipid panel (fasting) (05/23/2013 1:25 PM EDT) Chol, Total 196 <=199 mg/dL [facility] Comment: Recommendations of the NCEP Adult Treatment Panel for the following risk cutoff thresholds for the [place] population: Desirable: <200 mg/dL Borderline High: 200-239 mg/dL High: > or = 240 mg/dL Triglycerides 121 <=149 mg/dL [facility] Comment: Reference Range: Normal triglycerides: ??<150 mg/dL Borderline high: ??150-199 mg/dL High: ??200-499 mg/dL Very high: ??>ni=793 mg/dL STELLA 2001; 285(19):4526-4630 HDL 41 >=40 mg/dL [facility] Comment: Reference range: ??Low HDL: ?? < 40 mg/dL ??Normal: ?40-60 mg/dL ??Desirable: > 60 mg/dL STELLA 2001; 285(19):1789-9374 LDL Cholesterol 131(H) <=99 mg/dL [facility] Comment: Reference range: ?? Optimal: ?<100 mg/dL ?? Near Optimal/Above Optimal: ?? 100-129 mg/dL ?? Borderline high: ?130-159 mg/dL ?? High: ? 160-189 mg/dL ?? Very high: ?>qb=539 mg/dL STELLA 2001: 285(19):0046-1318 Chol/HDL Ratio 4.8 ratio [facility]OG[facility] Comment: A Cholesterol to HDL ratio below 4:1 is desirable. ??Studies suggest that increased CAD risk occurs at ratios above 5 for females and above 6 for men. ? [place] Heart Association ??(http://www.americanheart.org) ? [place] Int Med, 1994; 121:641 ? AM J Med, 1998; 105(1A):48S Blood specimen (specimen) 05/23/2013 1:25 PM EDT 05/23/2013 1:32 PM EDT Narrative Resulting Agency Comment Spec In Lab Judith Reinoso MD CHEMISTRY ORDERAB LES [facility] MILLENNIUM * (ABNORMAL) Comprehensive metabolic panel (non-fasting) (05/23/2013 1:25 PM EDT) Glucose Lvl 74 60 - 199 mg/dL [facility] Comment:Diabetes: >=200 mg/d L plus symptoms BUN 9 8 - 18 mg/dL [facility] Creatinine 0.34(L) 0.70 - 1.20 mg/dL [facility]ILLENNI[facility] Comment: Please note that the pediatric reference intervals supplied above were not validated at [facility]. Results from pediatric patients should be interpreted in conjunction to the patient's age, height and muscle mass. Sodium 141 135 - 145 mmol/L [facility] Potassium 3.8 3.5 - 5.0 mmol/L [facility] Comment: Please note: ??Patients with WBC >100,000 may have falsely elevated Potassium levels. ??For accurate Potassium quantification in these patients send serum separator tube (gold top) for subsequent determinations. ??Contact the Clinical Chemistry Laboratory if there are any questions. Chloride 104 98 - 107 mmol/L [facility]EN[facility] CO2 Not Perf 22 - 31 mmol/L [facility] Comment:Add-on request. Samp le too old to perform test. Anion Gap Unable to Calculate 5 - 15 mmol/L [facility] MILLENNIUM Calcium 9.3 8.5 - 10.5 mg/dL [facility] MILLENNI[facility] Total Protein 7.7 6.4 - 8.3 gm/dL [facility] MILLEN[facility] Albumin 4.0 3.2 - 5.2 gm/dL [facility] MILLENNI[facility] AST 26 0 - 30 unit/L [facility] MILLENNIUM ALT 23 0 - 30 unit/L [facility] MILLENNI[facility] Alk Phos 95 40 - 104 unit/L [facility] MILLENNI[facility] Total Bilirubin 0.3 0.2 - 1.3 mg/dL [facility] MILLENNIUM Bili, [...] the following links into your internet browser. http://www.nkdep.nih.gov/lab-evaluation.shtml http://www.kidney.org/professionals/ Blood specimen (specimen) 05/23/2013 1:25 PM EDT 05/23/2013 1:32 PM EDT Narrative Resulting Agency Comment Spec In Lab Judith Reinoso MD CHEMISTRY ORDERAB LES Performing Organization Address [facility] Co de Phone Number [facility] * Vitamin B12 (05/23/2013 1:25 PM EDT) Vitamin B-12 427 207 - 974 pg/mL [facility] Blood specimen (specimen) 05/23/2013 1:25 PM EDT 05/23/2013 1:31 PM EDT Narrative Resulting Agency Comment Spec In Lab Judith Reinoso MD CHEMISTRY ORDERAB LES Performing Organization Address [facility] Co de Phone Number [facility] * (ABNORMAL) Hemoglobin A1c (05/23/2013 1:25 PM EDT) Hemoglobin A1C 9.0(H) 4.3 - 6.1 % [facility] MILLENNIUM Comment: The [place] Diabetes Association (ADA) has stated that HbA1c values >or= 6.5% are consistent with the diagnosis of diabetes mellitus. In the absence of hyperglycemia (i.e. plasma glucose > 200 mg/dL) or classic symptoms of hyperglycemia a repeat measurement of HbA1c should be performed on a separate sample to confirm the diagnosis. The ADA also considers an HbA1c value between 5.7% and 6.4% to be consistent with an increased risk of diabetes (prediabetes). Patients with an HbA1c value in this range should be counseled about their increased risk of progressing to diabetes. Reference: Position Statement: Standards of Medical Care in Diabetes 2013. Diabetes Care 2013:36;suppl 1:S11-S66. Est Avg Gluc 212 mg/dL [facility] Comment: eAG equivalents for HbA1c percentages: HbA1c(%) ?eAG(mg/dL) 6.0 ?126 6.5 ?140 7.0 ?154 7.5 ?169 8.0 ?183 8.5 ?197 9.0 ?212 9.5 ?226 10.0 ? 240 Limitations: The eAG calculation has not been validated on women, individuals below 18 years old and above 70 years old, and individuals with hemoglobinopathies. Additional resources are available on the ADA website: ??http://professional.diabetes.org/glucosecalculator.aspx Maurice GODINEZ, Marion J, Miriam R, et al. ??Translating the A1C assay into estimated average glucose values. ??Diabetes Care 2008:31(8):6629-1311. Blood specimen (specimen) 05/23/2013 1:25 PM EDT 05/23/2013 1:31 PM EDT Narrative Resulting Agency Comment Spec In Lab Judith Reinoso MD CHEMISTRY ORDERAB LES [facility] * Thyroid peroxidase antibody (05/23/2013 1:25 PM EDT) Thyroperox Ab <10 <=34 IU/mL CERNE R MILLENNIUM Blood specimen (specimen) 05/23/2013 1:25 PM EDT 05/24/2013 8:31 AM EDT Narrative Resulting Agency Comment Spec In Lab Judith Reinoso MD IMMUNOLOGY ORDERA BLES Performing Organization Address [facility] Co de Phone Number [facility] * Thyroglobulin Antibody (05/23/2013 1:25 PM EDT) Thyroglob Ab <20.0 0.0 - 40.0 IU/mL [facility] Comment: Assay performed is the DPC Immulite Tg-Ab immunometric assay. (Cutoff for TgAb negativity is <20 IU/ml) Blood specimen (specimen) 05/23/2013 1:25 PM EDT 05/24/2013 8:31 AM EDT Narrative Resulting Agency Comment Spec In Lab Judith Reinoso MD CHEMISTRY ORDERAB LES Performing Organization Address [facility]/ZIP Co de Phone Number [facility] * TSH (05/23/2013 1:25 PM EDT) TSH 1.74 0.27 - 4.20 mcIU/mL [facility] AENNIUM Blood specimen (specimen) 05/23/2013 1:25 PM EDT 05/23/2013 1:31 PM EDT Narrative Resulting Agency Comment Spec In Lab Judith Reinoso MD CHEMISTRY ORDERAB LES [facility] * VIT D Total Evaluation (05/23/2013 1:25 PM EDT) 25-OH Vit D Total 47 30 - 100 ng/mL [facility] Comment: Deficient <10 ng/mL Insufficient 10 to 29 ng/mL Sufficient 30 to 100 ng/mL Potential Intoxication >100 ng/mL According to the US National Osteoporosis Foundation, Vitamin D concentrations >30 ng/mL are sufficient to protect bone health. ??The National Kidney Foundation has similarly stated that patients with Vitamin D concentrations <30ng/mL should be considered to be insufficient or deficient. http://www.kidney.org/professionals/KDOQI/guidelines_bone/Guide7.htm http://www.nof.org/professionals/clinical-guidelines The IDS iSYS Vitamin D Immunoassay detects both 25-OH Vitamin D2 and 25-OH Vitamin D3, but only a total Vitamin D concentration is reported. Blood specimen (specimen) 05/23/2013 1:25 PM EDT 05/23/2013 1:31 PM EDT Narrative Resulting Agency Comment Spec In Lab Judith Reinoso MD CHEMISTRY ORDERAB LES [facility] documented in this encounter Visit Diagnoses Not on filedocumented in this encounter Care Teams Sulfide Head Operator Relationship Specialty Start Date End Date Nanda Read MD [facility] D [address] [place] [address] PCP - General 09/14/10 06/06/18 documented as of this encounter
--- OUTSIDE RECORDS SUMMARY | 2024-05-15 11:14 | XMS_ITS | Encounter Summary ---
Author Organization [facility], [facility] [place] [address] Care Team Providers Care Product Marketing Intern Name Role Phone Nanda Read MD Primary Care Provider [phone] Encounter Details Date Type Department Care Team (Late st Contact Info) Description 11/16/2011 3:45 PM EST - 11/16/2011 4:15 PM EST [place] [address] Alisa Richards MD [facility] [place] [address] UPPER GI ENDOSCOPY Social History Tobacco Use Types Packs/Day Years [...] GI ENDOSCOPY: WHAT TO EXPECT AT HOME (ROMANSH) documented in this encounter Medications at Time [...] U-100 (INSULIN SYRINGE) 1/2 mL 30 x [address] [facility].(Non-Drug; Combo Route) route 2 [...] AM EDT TH Visit (TeleHealth) [place] [address] Wyatt Higgins MD [facility] [place] [address] documented as of this encounter Procedures Procedure [...] 5:12 PM EST) Surgical Pathology Report ? [facility] ? Provider: ?? ALISA RICHARDS ? Pt. Name: ?? JO JONES ? Acc #: ?[id number] ?Pt. ? Col Date: ?? 11/16/2011 ? [...] ? ---Clinical Information--- ? Specimen Submitted: ? [facility] ? Provider: ?? ALISA RICHARDS ? Pt. Name: ?? JO JONES ? Acc #: ?[id number] ?Pt. ? Col Date: ?? 11/16/2011 ? /Sex: ?1965,(45 years),Female ? Rec Date: ?? 11/16/2011 ? LOC: ?4T ? SURGICAL PATHOLOGY ? A - Stomach ? Clinical History/Diagnosis: ? Dyspepsia, ELAINE. ??Random biopsy, erosions noted, erythema: ??? HP CERNER MILLENNIUM 11/16/2011 5:12 PM EST Alisa Richards MD PATHOLOGY/CYTOLOGY O SHAYAN Performing Organization Address [facility] Co de Phone Number [facility] CARREROIUM * Specimen to Pathology (surgical or derm) (11/16/2011 4:40 PM EST) AP Specimen 11/16/2011 4:40 PM EST 11/16/2011 4:41 PM EST Narrative CERNER MILLENNIUM - 11/16/2011 4:40 PM EST Specimen requisition ordered. ??Separate Pathology report to follow Alisa Richards MD PATHOLOGY/CYTOLOGY O SHAYAN Performing Organization Address [facility] Co de Phone Number [facility] * UPPER GI ENDOSCOPY (11/16/2011 3:58 PM EST) UPPER GI ENDOSCOPY [facility] Endoscopy Patient Name: Jo Jones ? Procedure Date: 11/16/2011 3:58 PM ? Date of : 1965 ? Age: 45 ? Order #: [id number] ? Procedure: ? Upper GI endoscopy Indications: ? Heartburn, Dyspepsia; followup to EGD ? June 2010 showing Grade A ? esophagitis Providers: ? Alisa Richards MD, Kimberly Borja, ? RN, Nixon Romero, Dairy Quality Assurance Officer Referring : ?Nanda Read MD Requesting Provider: [...] POC Glucose 64 60 - 199 mg/dL [facility] Comment: Supplemental ranges: <110 mg/dL before meals <200 mg/dL all other times of the day Blood specimen (specimen) 11/16/2011 3:10 PM EST 11/16/2011 3:10 PM EST Alisa Richards MD POINT OF CARE TEST O RDERABLES [facility] documented in this encounter Visit Diagnoses Not on filedocumented in this encounter Active and Recently Administered Medications Care Teams Product Marketing Intern Relationship Specialty Start Date End Date Nanda Read MD [facility] D [address] [place] [address] PCP - General 09/14/10 06/06/18 documented as of this encounter
--- OUTSIDE RECORDS SUMMARY | 2024-05-15 11:14 | XMS_ITS | Encounter Summary ---
Author Organization [facility] [place] [address] Care Team Providers Care Board Handler Name Role Phone Nanda Read MD Primary Care Provider Encounter Details Date Type Department Care Team (Late st Contact Info) Description 11/16/2011 4:14 PM EST Anesthesia Event [place] [address] Zuleyma Butts MD [facility] [place] [address] Anesthesia Record Procedure Summary Procedure Name Responsible Anesthesiologist Anesthesia Start Time Anesthesia Stop Time UPPER GI ENDOSCOPY (Trunk) Zuleyma Butts MD 11/16/11 1614 11/16/11 1636 Events Date Time Event Comment 11/16/2011 1614 Start 1636 Stop Meds * Agents No agents on file. * Blood No blood administrations on file. Lines, Drains, and Airways Type Details Placement Removal (RETIRED) Peripheral IV Line - Single Lumen 11/16/11; 1512; 11/16/11; 1651 11/16/11 1512 by Destiny Sanabria RN 11/16/11 1651 by Roxanna Azar RN documented in this encounter Social History [...] OR Notes * Anesthesia Postprocedure Evaluation - Zuleyma Butts - 11/16/2011 5:03 PM EST Patient: Martha Benoit Procedure(s) Performed: UPPER GI ENDOSCOPY; EGD WITH BIOPSY - Biopsies taken. Patient location: PACU Post-op pain: Adequate analgesia Post-op nausea: no nausea or vomiting Last Vitals: Filed Vitals: 11/16/11 1636 BP: 130/63 Pulse: 96 Temp: Resp: 18 Post-op cardiovascular and respiratory status: is stable Level of consciousness: awake, alert and oriented Complications: no apparent complications and tolerated the procedure well Fluid Status: normal * Anesthesia Preprocedure Evaluation - Zuleyma Butts - 11/16/2011 3:13 PM EST Anesthesia Evaluation Patient summary reviewed and Nursing notes reviewed No hx of anesthetic complications Airway Dental Pulmonary Cardiovascular Neuro/Psych (+) neuromuscular disease, Comments: Diabetic neuropathy GI/Hepatic/Renal Endo/Other (+) Type II DM, Abdominal Anesthesia Plan ASA 3 MAC with intravenous induction I have seen the patient and reviewed the record including Hx, problem list, allergies, medications,and pertinent labs. See elsewhere in eDH for further detail. Obesity and DM as major Medical issues. She has had endoscopy before with midaz 1 mg/fentanyl 50 micrograms/benadryl 25 mg which worked very well for her. She would like to do this (or less) today ifpossible. Will be as minimalist as she and Dr Jacobson together wish. (Propofol back up) Anesthetic plan and risks discussed with patient. Plan discussed with LITIGATION LEGAL SECRETARY. documented in this encounter Miscellaneous Notes * Addendum Note - Haritha Rico - 11/17/2011 10:13 AM EST * Addendum Note - Haritha Rico - 11/17/2011 10:13 AM EST Addendum created 11/17/11 1013 by Haritha Rico Modules edited:Anesthesia Events, Anesthesia Responsible Staff documented in this encounter Plan of Treatment Upcoming Encounters Date Type Department Care Team (Late st Contact Info) Description 02/19/2025 9:00 AM EDT TH Visit (TeleHealth) [place] [address] Wyatt Higgins MD [facility] [place] [address] documented as of this encounter Visit Diagnoses Not on filedocumented in this encounter Care Teams Board Handler Relationship Specialty Start Date End Date Nanda Read MD [facility] [address] [place] [address] PCP - General 09/14/10 06/06/18 documented as of this encounter
--- OUTSIDE RECORDS SUMMARY | 2024-05-15 11:14 | XMS_ITS | Encounter Summary ---
Author Organization [facility] [place] [address] Care Team Providers Care Prep Cook Name Role Phone Nanda Read MD Primary Care Provider Reason for Visit * Reason Comments Diabetes Encounter Details Date Type Department Care Team (Late st Contact Info) Description 06/03/2011 9:00 AM EDT Office Visit [place] [address] Judith Reinoso MD [facility] [place] [address] DM w/o complication type I, uncontrolled (Primary Dx) Discharge Disposition: Home Social [...] Sign Reading Time Taken Comments Blood Pressure 133/77 06/03/2011 9:00 AM EDT Pulse 95 06/03/2011 9:00 AM EDT Temperature - - Respiratory Rate - - Oxygen Saturation - - Inhaled Oxygen Concentration - - Weight 109.1 kg (240 lb 9.6 oz) 06/03/2011 9:00 AM EDT Height 160 cm (5' 3) 06/03/2011 9:00 AM EDT Body Mass Index 42.62 06/03/2011 9:00 AM EDT documented in this encounter Progress Notes * Judith Reinoso MD - 06/03/2011 10:02 AM EDT Subjective: Patient ID: Martha Benoit is a 45 y.o. female. [facility] Martha Benoit 1965 [id number] Date: 06/03/11 PCP: NANDA READ MD Provided by: Judith Reinoso MD Reason for visit: Follow-up diabetes ACTIVE PROBLEM LIST 1. Diabetes w/diabetic retinopathy & neuropathy [Onset: 1981] +DM for 10+ years -on insulin since 2006, +severe diabetic neuropathy and mild retinopathy A1c 8.3%(02/19/10)<-8.8%(10/2009)<-8.1%(05/31)<-8.9%(04/30)<-10.4%(10/08/08) <-12.7(04/29)<-11.6%(12/28)<-10.6(06/29)<-9.7% (04/28)->8.5% (12/31)-> 8.3% (05/02) Normal c-peptide 3.3 -> 1.5 (02/19/10) 2. 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 vitamin D deficiency [Onset: Apr 2009] Lab 04/30: 25vitamin D = 19 -> started on vitamin D 50,000 iu weekly Lab 10/2009: 25vitamin D = 35-> increased to 2x/week for 2-3 months to keep it in mid range soon-in preparation for gastric bypass in the near future. 02/19/10: 25vitamin D = 51-> 29 (12/31)->43 (7/11)... on vitamin D 50,000 iu 2x/ week 4. Obesity -> very interested in gastric bypass (not banding) Diabetes treatment regimen: Lantus 42 units bid, Humalog 5-30 units tid and extra from sliding scale. Also, metformin 500 mg bid and glipizide 10 mg bid FSBG: average 180 over the past 2 weeks, ranging between 130s-200s mg/dl Most recent HA1c: 8.3% on 05/20/11 (outside lab) Hypoglycemia during the interval time: none Diet: low fat/low carb diet Exercise: walking Complications: no changes during the interim. Prevention: same as last visit recently Review of Systems ROS: Please see HPI, all others negative Patient Active Problem List Diagnoses Code ??? CIS - Bilateral kidney stones 1-2 mm ? ? CIS - cervical cancer-early stage -> surgery in late 07/01 soon ??? CIS - Chr foot pain s/p heel spur surgeries ? ? CIS - Diabetes w/diabetic retinopathy & neuropathy ??? CIS - intestinal metaplasia of the lower stomach-antrum ? ? CIS - Obesity -> going for gastric bypass at [facility] ? ? CIS - severe generalized peripheral neuropathy & Lt foot/toe drop ??? CIS - vitamin D deficiency ??? DM renal manif type II, uncontrolled 250.42 ??? Peripheral autonomic neuropathy due to diabetes mellitus 250.60DL Current outpatient prescriptions ordered prior to encounter Medication Sig Dispense Refill ??? Insulin Lispro (HUMALOG KWIKPEN) 100 unit/mL InPn Inject 20 Units subcutaneously 5 times daily.30 mL PRN ??? ergocalciferol (ERGOCALCIFEROL) 50,000 unit capsule 61601 UNIT = 1 Capsule(s) , PO, twice WEEKly on Mon and Ava ??? glipiZIDE (GLUCOTROL) 10 mg tablet ??? metFORMIN (GLUCOPHAGE) 500 mg tablet ??? potassium chloride (KLOR-CON 10) 10 mEq tablet ??? pregabalin (LYRICA) 100 mg capsule ??? folic acid (FOLVITE) 1 mg tablet ??? furosemide (LASIX) 40 mg tablet ??? OXYcodone-acetaminophen (PERCOCET) 5-325 mg per tablet ??? Insulin Glargine (LANTUS SOLOSTAR) 100 unit/mL (3 mL) InPn 40-50 units, SQ, Twice daily ??? Alpha Lipoic Acid 200 mg Tab [...] daily Allergies Allergen Reactions ??? Codeine Phos CIS - Nausea/Vomiting, CIS - Nausea/Vomiting ??? Meperidine ??? Acetaminophen-codeine CIS - ITCHING, CIS - ITCHING History Social History ??? Marital Status: Spouse [...] son Objective: Physical Exam Physical exam BP 133/77 Pulse 95 Ht 160 cm (5' 3) Wt 109.135 kg (240 lb 9.6 oz) BMI 42.62 kg/m2 Appearance: Obese, pleasant, NAD HEENT: PERRLA, EOMI, no retinopathy Neck: no goiter or lymphadenopathy Cardiac: normal S1, S2, no murmur Chest: CTA, no wheeze or crackle. Abdomen: benign, NT, no hepatosplenomegaly Ext: no pitting edema no foot ulcer Neuro: no weakness, depressed reflexes Assessment: Diabetes Type II - suboptimal control with A1c 8.5%-> 8.3% but stable for her Also, treated for severe generalized peripheral neuropathy, vitamin D deficiency on high dose vitamin D 2x/week with improvement and underlying obesity-seen by gastric bypass team at [facility] and rec'd for gastric sleeve but she really wants gastric bypass for more effects and permanent measure. She also thought that the sleeve is a surgical and not sure if she can have the the new technique of putting a mesh-like material into her Gi tract to prevent food absorption and help her loose weight. She is still very fustrated with her weight and painful neuropathy and will help keep her A1c <7% soon. Plan: 1. Medication: Adjustment of insulin regimen: we rec symlin to help enhance insulin action and help her loose weight. After discussion, she wants to try to switch Lantus and Humalog for each meal to U-500 0.15ml q10am and 0.20 ml q 5pm and cont humalog kwickpen as needed for correction of high BG To continue all other medications 2. Monitoring: [...] next visit. 4. Lab: Already checked lab before visit as above 5. RTC: Next visit in 4-6 weeks. Will check HbA1c and BMP at the time (Quick draw lab before visit with us on the same day). We have reviewed our plan outlined above [...] AM EDT TH Visit (TeleHealth) [place] [phone] Wyatt Higgins MD [facility] [place] [address] documented as of this encounter Visit Diagnoses Diagnosis Type I (juvenile type) diabetes mellitus without mention of complication, uncontrolled- Primary documented in this encounter Care Teams Prep Cook Relationship Specialty Start Date End Date Nanda Read MD [facility] [address] [place] [address] PCP - General 09/14/10 06/06/18 documented as of this encounter
--- OUTSIDE RECORDS SUMMARY | 2024-05-15 11:14 | XMS_ITS | Encounter Summary ---
Author Organization [facility] [place] [address] Care Team Providers Care Surveyor Chain Helper Name Role Phone Nanda Read MD Primary Care Provider Encounter Details Date Type Department Care Team (Late st Contact Info) Description 11/01/2010 10:30 AM EST [place] [address] Julio Cesar Wright MD [facility] [place] [address] Discharge Disposition: Home Social History Tobacco Use [...] AM EDT TH Visit (TeleHealth) [place] [address] Wyatt Higgins MD [facility] [place] [address] documented as of this encounter Visit Diagnoses Not on filedocumented in this encounter Care Teams Surveyor Chain Helper Relationship Specialty Start Date End Date Nanda Read MD KIRILL Gonzalez [address] [place] [address] PCP - General 09/14/10 06/06/18 documented as of this encounter
--- OUTSIDE RECORDS SUMMARY | 2024-05-15 11:14 | XMS_ITS | Encounter Summary ---
Author Organization [facility] [place] [address] Care Team Providers Care Manager Call Center Name Role Phone Nanda Read MD Primary Care Provider [phone] Reason for Visit * Reason Onset Date Comments Medication Refill 03/24/2011 Encounter Details Date Type Department Care Team (Late st Contact Info) Description 03/24/2011 Refill [place] [phone] Judith Reinoso MD [facility] [address] [place] [address] Social History Tobacco Use Types Packs/Day Years [...] AM EDT TH Visit (TeleHealth) [place] [phone] Wyatt Higgins MD [facility] [address] documented as of this encounter Visit Diagnoses Not on filedocumented in this encounter Care Teams Manager Call Center Relationship Specialty Start Date End Date Nanda Read MD KIRILL Carlos [address] [place] [address] PCP - General 09/14/10 06/06/18 documented as of this encounter
--- OUTSIDE RECORDS SUMMARY | 2024-05-15 11:14 | XMS_ITS | Encounter Summary ---
Author Organization [facility] [place] [address] Care Team Providers Care Traffic Investigator Name Role Phone Nanda Read MD Primary Care Provider [phone] Reason for Visit * Reason Onset Date Comments Questions 11/18/2011 re Vitamin D Encounter Details Date Type Department Care Team (Late st Contact Info) Description 11/18/2011 Telephone [place] [address] Judith Reinoso MD [facility] [place] [address] Questions (re Vitamin D) Social History Tobacco Use Types Packs/Day Years [...] encounter Miscellaneous Notes * Telephone Encounter - Aide Sweeney RN - 11/18/2011 4:[address] Reinoso wants this patient to take 50,000 iu Vit.D 2x/week. 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 Patient is hesitant to take the large dose so Dr. Reinoso recommended over the counter 2,000 iu/day. Patient is hesitant to take this dose regardless of the level being 18 (which is low). Patient said she would try this lower dose and let us know if it bothers her. * Telephone Encounter - Judith Reinoso MD - 11/18/2011 4:12 PM EST I saw her in 11/07/11 and she supposed to take vitamin D 50,000 iu 2x/week. Her vitamin D was low at18 on weekly dosing. Thanks. JUDITH REINOSO MD * Telephone Encounter - Candida Salter RN - 11/18/2011 9:58 AM EST Caller: Martha Reason for Call: Left message on voice mail To verify what dose of Vitamin D she should be on. Recently saw Dr. Miller who advised her to speak with Dr. Reinoso regarding spreading the dosage out, not just once a day. A/P Forward to Dr. Reinoso for review and instructions. Pt uses [facility] in [place], [place] documented in this encounter Plan of Treatment Upcoming Encounters Date Type Department Care Team (Late st Contact Info) Description 02/19/2025 9:00 AM EDT TH Visit (TeleHealth) [place] [address] Wyatt Higgins MD [facility] [place] [address] documented as of this encounter Visit Diagnoses Not on filedocumented in this encounter Care Teams Traffic Investigator Relationship Specialty Start Date End Date Nanda Read MD [facility] Carlos [address] [place] [address] PCP - General 09/14/10 06/06/18 documented as of this encounter
== END 2024-05-15 10:50 | disposition home or self-care (01) ==
LOC: NCHCN 10:49
PROVIDERS: PCP Family Medicine; Visit Provider Family Medicine
DX: R39.89 Other symptoms and signs involving the genitourinary system (principal); N39.0 Urinary tract infection, site not specified; B96.29 Other Escherichia coli [E. coli] as the cause of diseases classified elsewhere
CPT/HCPCS: 87077; 87086; 87186

== ENCOUNTER 2024-09-18 15:51 | Outpatient (REF) | payer MEDICAID, SELFPAY ==
--- OUTSIDE RECORDS SUMMARY | 2024-09-18 16:01 | XMS_ITS | Continuity of Care Document ---
Author Organization [facility] Address [address] [place] [address] Care Team Providers Care Per Diem Rn Name Role Phone Jonah Bowers Primary Care Physician Encounter [id number] Date(s): 06/04/24 - 06/04/[address] [address] Discharge Disposition: Home or Self Care Attending Physician: Judith Reinoso MD Admitting Physician: Judith Reinoso MD Referring Physician: Katia Haywood MACHINIST APPRENTICE-Reta Allergies, Adverse Reactions, Alerts No Known Medication Allergies Medications !-boric acid vaginal suppository 1 supp, [...] colonoscopy, # 4 tab, 0 Refill(s), Pharmacy: [id number] Start Date: 07/08/22 Status: Ordered Enbrel [...] instructions, # 238 g, 0 Refill(s), Pharmacy: [id number] Start Date: 07/08/22 Status: Ordered multivitamin [...] citrate), # 360 mL, 0 Refill(s), Pharmacy: [id number] Start Date: 07/08/22 Status: Ordered Sutab oral tablet See Instructions, Dose 1 take 12 tabs with 16 ouces of water, with additional 32 ounces of water Dose 2 take 12 tabs with 16 ounces of water followed by an additional 32 ounces of water, # 24 tab, 0 Refill(s), Pharmacy: [id number], 160, cm, 07/15/22 7:14:00 EDT, Height [...] Date Related Diagnosis Body Site Status Colonoscopy 1 09/06/23 Completed Colonoscopy 07/14/22 Completed Bilateral tubal ligation Completed Gastric bypass Completed 1Incomplete Results Orders for Microbiology Reports Name Date Urine Culture 06/04/24 Microbiology Reports TEST:Urine Culture STATUS:Order in Progress BODY SITE: SOURCE:Urine, Clean Catch COLLECTED DATE/TIME:06/04/24 9:11 AM PRELIMINARY REPORT >100,000 cfu/ml Escherichia coli Susceptibility to follow. Social History Social History Type Response Tobacco Never tobacco user T obacco Use:. Sex Female Patient Care team information Care Team Personnel Name: Jonah Bowers DO Position: No Access Member Role: Informed Provider Address: Address: [address] [place] [phone] [place] Care Team Related Persons Name: SHAY JONES
--- OUTSIDE RECORDS SUMMARY | 2024-09-18 16:02 | XMS_ITS | Encounter Summary ---
Author Organization [facility] Address [address] [place] [address] Care Team Providers Care Insurance Sales Professional Name Role Phone Katia Haywood Primary Care Provider [phone] Reason for Visit * Reason Onset Date Comments Post-OP Follow Up 01/22/2024 Encounter Details Date Type Department Care Team (Late st Contact Info) Description 01/22/2024 Telephone [facility] Pelvic Medicine and Reconstructive Surgery - Medical Office [facility] [address] [place] [address] Solange Ye RN Post-OP Follow Up Social History Tobacco Use Types Packs/Day Years Used Date Smoking Tobacco: Never Smokeless Tobacco: Never Alcohol Use Standard Drinks/Week Comments Not Currently 0 (1 standard drink = 0.6 oz pur e alcohol) Interpersonal Safety Answer Date Record ed Physically Hurt Never 05/24/2020 Verbally Threaten Not on file 05/24/2020 Comments No Sex and Gender Information Value Date Recorded Sex Assigned at Female 02/22/2021 15:01 EDT Legal Sex Female 17:38 EST Gender Identity Female 04/30/2020 8:27 EDT Sexual Orientation Straight 02/22/2021 15 :01 EDT documented as of this encounter Functional Status * Because of a physical, mental, or emotional condition, does this person have difficulty doing errands alone such as visiting a doctor's office or shopping? Answer Date of Assessment Author No 03/11/2016 13:57 EDT documented as of this encounter Mental Status * Because of a physical, mental, or emotional condition, does this person have serious difficulty concentrating, remembering, or making decisions? Answer Entry Date Author No 03/11/2016 13:57 EDT documented in this encounter Miscellaneous Notes * Telephone Encounter - Solange Ye RN - 01/22/2024 3315 EDT POD #4 A&P repair. Pt reports [...] Care Team (Late st Contact Info) Description 02/05/2025 11:00 EDT Office Visit [facility] Pelvic Medicine and Reconstructive Surgery - Medical Office [address] [address] Solange Garcia PA-C [address] [place] [address], [address] [phone] documented as of this encounter Visit Diagnoses Not on filedocumented in this encounter Care Teams Insurance Sales Professional Relationship Specialty Start Date End Date Katia Haywood [address] [place] [phone] PCP - General Family Medicine - Primary Care 06/20/23 documented as of this encounter
--- OUTSIDE RECORDS SUMMARY | 2024-09-18 16:02 | XMS_ITS | Data Portability ---
Author Organization [facility], [facility] Address [address] [facility] [address] Assessment Encounter Date Assessment Date Assessment LastModified [...] effective in controlling her blood sugar levels. [email or web address] Not available 05/15/2024 10:46:33 06/12/2024 06/12/2024 The total time devoted to today's encounter, including both the bvrv-cc-nplr time with the patient and/or family/caregiv er and rdd-kpki-cu-fa ce time I personally spent is 20 minutes in visit, 5 minutes prep, 5 minutes charting; total 35 minutes. The patient is a 58-year-old female presenting with concerns about an ongoing urinary tract infection and a possible yeast infection. The urinary tract infection is being treated with nitrofurantoin , and the patient is currently asymptomatic. A urinary test has been recommended 2-3 days after completing the medication to determine if the infection has been eradicated or if it is recurring. The patient also suspects a yeast infection as a result of antibiotic treatment and has used a cream to alleviate discomfort. [email or web address] Not available 06/12/2024 13:30:04 06/28/2024 06/28/2024 Patient consented for telehealth visit today. The total time devoted to today's encounter, including both the ibya-xo-zytn time with the patient and/or family/caregiv er and aqe-dupx-er-fa ce time I personally spent is 20 minutes in visit, 5 minutes prep, 5 minutes charting; total 30 minutes. [email or web address] Not available 06/28/2024 08:53:39 Plan of Treatment Reminders Order Date Submit Date Provider Last Modified By Organization Details Last Modified Time Details Appointments 12 week FU (controll ed meds) 2023 02:00P M ERIC PATRICIA Not available Not available Not available Telehealt h 30 2024 11:00A M ERIC PATRICIA Not available Not available Not available Lab urinalysi s, dipstick 2023 024 [email or web address] [facility], [address] [facility], [place], [address], 05/15/2024 11:59:40 culture, urine + sensitivi ty [email or web address] [facility] (Registration ), [address] [place] [address] , [place], [address], 05/22/2024 07:08:57 culture, urine + sensitivi ty 2023 024 [facility], [address] [facility] , [place], [address], 06/18/2024 13:35:17 Referral None recorded. Procedures None recorded. Surgeries None recorded. Imaging None recorded. Medication Orders miconazol e nitrate 2 % vaginal cream 2023 024 [employer] [facility] [address], [address] [facility], [place], [address], 09/18/2024 13:34:08 cefpodoxi me 200 mg tablet 2023 024 [employer] [facility] [address], [address] [facility], [place], [address], 09/18/2024 13:27:35 oxycodone -acetamin ophen 10 mg-325 mg tablet 2023 [employer] [facility] [address], [address] [facility], [place], [address], 06/28/2024 09:01:52 oxycodone -acetamin ophen 10 mg-325 mg tablet 2023 [employer] [facility] [address], [address] [facility], [place], [address], 06/28/2024 09:01:56 oxycodone -acetamin ophen 10 mg-325 mg tablet 2023 024 [employer] [address], [address] [facility], [place], [address], 06/28/2024 09:01:52 Patient TargetsNo targets recorded. Patient Instructions Encounter Date Encounter Id Patient Instructions Last Modified By Organization Details Last Modified Time 05/15/2024 [id number] - Continue using the prescribed cream for vaginal atrophy as directed - Monitor blood sugar levels and report any significant changes - Await results of urine culture for further management of urinary symptoms - Keep in contact with the physician regarding any changes in symptoms or concerns [email or web address] Not available 05/15/2024 10:40:13 06/12/2024 [id number] - Complete the nitrofurantoin treatment for urinary tract infection - Obtain a urinary test 2-3 days after completing the medication to assess infection status - Follow up with the results of the urine culture and sensitivity test - Monitor symptoms of possible yeast infection and follow up as needed [email or web address] Not available 06/12/2024 11:23:14 Reason for Referral None Reported. Results Created Date Observation Date Name Description Value Unit Range Abnormal Flag Note LastModifiedBy Organization Detail LastModifiedTime 04/23/2004/25/2024 URINE CULTU RE urine culture Urine Cultu re ACTIO N ID AND SUSCE PTIBI LITY TO EVELIN W APPEA ANNALISE Gram Negat antonio Brannon COLON Y COUNT Not Available [facility] [address] [place], [address] 04/25/2024 09:33:06 04/23/20 24 04/25/2024 URINE CULTU RE urine culture colon ies/m L >100, 000 Day 1 Resul t ISOLA FABIENNE BELOW O:GNR (ORGA NISM ID: 1.1) - GRAM NEGAT ANTONIO BRANNON Urine Cultu re (ORGA NISM ID: 1.1) - COLON Y COUNT (ORGA NISM ID: 1.1) - >100, 000 Not Available [address] [place], [address] 04/25/2024 09:33:06 04/23/20 24 04/26/2024 URINE CULTU RE urine culture Urine Cultu re ACTIO N ID AND SUSCE PTIBI LITY TO FOLLO W APPEA ANNALISE Gram Negat antonio Brannon APPEA ANNALISE Gram Negat antonio Brannon COLON Y COUNT Not Available [address] [place], [address] 04/26/2024 08:24:05 04/23/20 24 04/26/2024 URINE CULTU RE urine culture colon ies/m L >100, 000 COLON Y COUNT >100, 000 Day 1 Resul t ISOLA FABIENNE BELOW Day 2 Resul t ISOLA FABIENNE BELOW O:ESC COL (ORGA NISM ID: 1.1) - Esche jaime a coli Urine Cultu re (ORGA NISM ID: 1.1) - COLON Y COUNT (ORGA NISM ID: 1.1) - >100, 000 ORGAN ISM ID: 1.1 ANTIB IOTIC INTER PRETA TION OLAYINKA STATU S Ampic illin R >=32 F Ampic illin /Sulb actam R >=32 F Cefaz adam S <=4 F Cefta zidim e S <=1 F CEFTR IAXON E S <=1 F Cipro floxa saloni S <=0.2 5 F Genta micin S <=1 F Nitro furan toin S <=16 F Imipe nem S <=0.2 5 F Levof loxac in S <=0.1 2 F Tobra mycin S <=1 F Trime thopr im/Mustafa lfame thoxa zole S <=20 F Piper acill in/Ta zobac ribera S <=4 F Not Available [address] [place], [address] 04/26/2024 08:24:05 04/23/20 24 04/23/2024 urina lysis , dipst ick Leukocytes Modera te Not Available [facility] [address] [place], [address], 04/23/2024 14:05:13 04/23/20 24 04/23/2024 urina lysis , dipst ick Nitrite negati ve Not Available [address], [address], 04/23/2024 14:05:13 04/23/20 24 04/23/2024 urina lysis , dipst ick Urobilinogen .2 Not Available [address], [address], 04/23/2024 14:05:13 04/23/20 24 04/23/2024 urina lysis , dipst ick Protein Trace Not Available [address], [address], 04/23/2024 14:05:13 04/23/20 24 04/23/2024 urina lysis , dipst ick pH 5.0 Not Available [address], [address], 04/23/2024 14:05:13 04/23/20 24 04/23/2024 urina lysis , dipst ick Blood Large Not Available [address], [address], 04/23/2024 14:05:13 04/23/20 24 04/23/2024 urina lysis , dipst ick Specific [place] 1.010 Not Available [address], [address], 04/23/2024 14:05:13 04/23/20 24 04/23/2024 urina lysis , dipst ick Ketone Negati ve Not Available [facility] [address] [place], [address], 04/23/2024 14:05:13 04/23/20 24 04/23/2024 urina lysis , dipst ick Bilirubin Negati ve Not Available [facility] [address] [place], [address], 04/23/2024 14:05:13 04/23/20 24 04/23/2024 urina lysis , dipst ick Glucose 2000+ Not Available [address], [address], 04/23/2024 14:05:13 04/23/20 24 04/23/2024 urina lysis , dipst ick Appearance Cloudy Not Available [facility] [address] [place], [address], 04/23/2024 14:05:13 04/23/20 24 04/23/2024 urina lysis , dipst ick Color Yellow Not Available [address], [address], 04/23/2024 14:05:13 05/15/20 24 05/16/2024 URINE CULTU RE urine culture Urine Cultu re ACTIO N ID AND SUSCE PTIBI LITY TO MELISSAO W APPEA ANNALISE Gram Negat antonio Brannon COLON Y COUNT Not Available [place] [address] [place], [address] 05/16/2024 10:47:07 05/15/20 24 05/16/2024 URINE CULTU RE urine culture colon ies/m L >100, 000 Day 1 Resul t ISOLA FABIENNE BELOW O:GNR (ORGA NISM ID: 1.1) - GRAM NEGAT ANTONIO BRANNON Urine Cultu re (ORGA NISM ID: 1.1) - COLON Y COUNT (ORGA NISM ID: 1.1) - >100, 000 Not Available [address] [place], [address] 05/16/2024 10:47:07 05/15/2005/17/2024 URINE CULTU RE urine culture Urine Cultu re ACTIO N ID AND SUSCE PTIBI LITY TO FOLLO W APPEA ANNALISE Gram Negat antonio Brannon APPEA ANNALISE Gram Negat antonio Brannon COLON Y COUNT Not Available [address] [place], [address] 05/17/2024 08:55:24 05/15/2005/17/2024 URINE CULTU RE urine culture colon ies/m L >100, 000 COLON Y COUNT >100, 000 Day 1 Resul t ISOLA FABIENNE BELOW Day 2 Resul t ISOLA FABIENNE BELOW O:ESC COL (ORGA NISM ID: 1.1) - Esche jaime a coli Urine Cultu re (ORGA NISM ID: 1.1) - COLON Y COUNT (ORGA NISM ID: 1.1) - >100, 000 ORGAN ISM ID: 1.1 ANTIB IOTIC INTER PRETA TION OLAYINKA STATU S Ampic illin R >=32 F Ampic illin /Sulb actam I 16 F Cefaz adam S <=4 F Cefta zidim e S <=1 F CEFTR IAXON E S <=1 F Cipro floxa saloni S <=0.2 5 F Genta micin S <=1 F Nitro furan toin S <=16 F Imipe nem S <=0.2 5 F Levof loxac in S <=0.1 2 F Tobra mycin S <=1 F Trime thopr im/Mustafa lfame thoxa zole S <=20 F Piper acill in/Ta zobac ribera S <=4 F Not Available [address] [place], [address] 05/17/2024 08:55:24 05/15/20 24 05/15/2024 urina lysis , dipst ick Leukocytes Trace Not Available [facility] [address] [place], [address], 05/15/2024 10:11:01 05/15/20 24 05/15/2024 urina lysis , dipst ick Nitrite negati ve Not Available [facility] [address] [place], [address], 05/15/2024 10:11:01 05/15/20 24 05/15/2024 urina lysis , dipst ick Urobilinogen .2 Not Available [address], [address], 05/15/2024 10:11:01 05/15/20 24 05/15/2024 urina lysis , dipst ick Protein Negati ve Not Available [facility] [address] [place], [address], 05/15/2024 10:11:01 05/15/2005/15/2024 urina lysis , dipst ick pH 6.0 Not Available [address], [address], 05/15/2024 10:11:01 05/15/20 24 05/15/2024 urina lysis , dipst ick Blood Negati ve Not Available [facility] [address] [place], [address], 05/15/2024 10:11:01 05/15/20 24 05/15/2024 urina lysis , dipst ick [facility] [place] 1.010 Not Available [address], [address], 05/15/2024 10:11:01 05/15/20 24 05/15/2024 urina lysis , dipst ick Ketone Negati ve Not Available [address], [address], 05/15/2024 10:11:01 05/15/20 24 05/15/2024 urina lysis , dipst ick Bilirubin Small Not Available [address], [address], 05/15/2024 10:11:01 05/15/2005/15/2024 urina lysis , dipst ick Glucose 2000+ Not Available [address], [address], 05/15/2024 10:11:01 05/15/20 24 05/15/2024 urina lysis , dipst ick Appearance Slight ly Cloudy Not Available [address], [address], 05/15/2024 10:11:01 05/15/20 24 05/15/2024 urina lysis , dipst ick Color Yellow Not Available [address], [address], 05/15/2024 10:11:01 09/18/20 24 09/18/2024 urina lysis , dipst ick Leukocytes Modera te Not Available [address], [address], 09/18/2024 14:45:30 09/18/2009/18/2024 urina lysis , dipst ick Nitrite negati ve Not Available [address], [address], 09/18/2024 14:45:30 09/18/20 24 09/18/2024 urina lysis , dipst ick Urobilinogen .2 Not Available [address], [address], 09/18/2024 14:45:30 09/18/20 24 09/18/2024 urina lysis , dipst ick Protein 100 Not Available [address], [address], 09/18/2024 14:45:30 09/18/20 24 09/18/2024 urina lysis , dipst ick pH 6.0 Not Available [address], [address], 09/18/2024 14:45:30 09/18/20 24 09/18/2024 urina lysis , dipst ick Blood Modera te Not Available [address], [address], 09/18/2024 14:45:30 09/18/20 24 09/18/2024 urina lysis , dipst ick [facility] [place] 1.020 Not Available [address], [address], 09/18/2024 14:45:30 09/18/20 24 09/18/2024 urina lysis , dipst ick Ketone Modera te Not Available [address], [address], 09/18/2024 14:45:30 09/18/20 24 09/18/2024 urina lysis , dipst ick Bilirubin Small Not Available [address], [address], 09/18/2024 14:45:30 09/18/20 24 09/18/2024 urina lysis , dipst ick Glucose Negati ve Not Available [facility] [address] [place], [address], 09/18/2024 14:45:30 09/18/20 24 09/18/2024 urina lysis , dipst ick Appearance Cloudy Not Available [facility] [address] [place], [address], 09/18/2024 14:45:30 09/18/20 24 09/18/2024 urina lysis , dipst ick Color Yellow Not Available [facility] [address] [place], [address], 09/18/2024 14:45:30 07/08/20 24 05/07/2020 US, abdom en No observ ation record ed. Not Available 07/08 00:14:50 07/08/20 24 04/17/2019 NM, bone scan, 3-pha se No observ ation record ed. Not Available 07/08 00:14:55 07/08/20 24 06/11/2022 US, abdom en No observ ation record ed. Not Available 07/08 00:15:10 07/08/20 24 05/06/2020 US, abdom en No observ ation record ed. Not Available 07/08 00:15:17 07/08/20 24 06/18/2020 MRI, head No observ ation record ed. Not Available 07/08 00:15:27 07/08/20 24 04/26/2019 XR, foot No observ ation record ed. Not Available 07/08 00:15:29 Result Notes None recorded. Problems Name Problem SNOMED Code Status Onset Date Resolution Date Notes Provider Name and Address Organization Details Recorded Time Atrophic vaginiti s 76699705 Active 2023 ERIC GOMEZ, [address], [place], [address] , [facility] 4 14:39:42 Amnesia 49320260 Active [facility] 4 18:56:28 Gastroes ophageal reflux disease without esophagi tis 465222740 Active [facility] 4 19:01:40 Senile hyperker atosis 328637111 Completed 12/27/2023 Problem Code: L82.1; Problem Code Type: ICD-10; [facility] 4 19:08:33 Hypothyr oidism 81109398 Active [facility] 4 19:05:19 Renal disorder due to type 2 diabetes mellitus 391901478 Active [facility] 4 19:09:47 Other idiopath ic peripher al neuropat hy NOS Active Not Available [facility] 3 04:42:37 Obesity 079194146 Active [facility] 4 19:06:06 Vitamin D deficien cy 49904218 Active [facility] 4 19:07:32 History of urinary stone 949835804 Active [place] [facility] 4 19:02:58 Chronic pain 11378862 Active [facility] 4 18:59:02 Retinopa thy due to type 2 diabetes mellitus 774529013 Completed 12/27/2023 Problem Code: E11.319; Problem Code Type: ICD-10; [facility] 4 19:09:39 Elevated blood-pr essure reading without diagnosi s of hyperten ml 681192647 Active 2017 [facility] 4 19:00:20 Counseli ng Completed 201702/26/2018 Problem Code: Z71.89; Problem Code Type: ICD-10; Not Available [facility] 3 04:42:38 Blood chemistr y outside referenc e range 219419768 Completed 201512/27/2023 Problem Code: R79.89; Problem Code Type: ICD-10; [facility] 4 18:57:49 Psoriasi s 4491770 Active 2017 [facility] 4 19:07:20 History of bariatri c surgical procedur e 865126404 Active [facility] 4 19:02:28 History of gynecolo gical disorder 844543468 Active [facility] 4 19:02:48 History of transien t ischemic attack 141561777 Active [facility] 4 19:03:02 Dysplasi a of vagina 3371662 Active [facility]. 4 19:00:12 Cervical intraepi thelial neoplasi a grade 1 709973782 Completed 12/27/2023 Problem Code: N87.0; Problem Code Type: ICD-10; [facility] 4 18:58:51 Pain in lower limb 22362825 Active 2017 [facility] 4 19:07:05 Long-ter m current use of drug therapy 016849767 Active 2017 [facility] 4 19:05:24 Acute stress disorder 73755435 Completed 201702/19/2019 Problem Code: F43.0; Problem Code Type: ICD-10; Not Available [facility] 3 04:42:40 Chronic ulcer of foot 465371171 Completed 201701/17/2019 11/17/19 19 - Comments only - Ruth argueta APRN, [employer] - Sadia boykin Continue s to follow with podiatry . Problem Code: L97.529; Problem Code Type: ICD-10; Not Available [facility] 3 04:42:40 Swelling 96692756 Active 2018 [facility], [facility]. 4 19:07:48 Candidia sis 56368624 Active 2018 under breasts [facility], [facility]. 4 18:58:12 Foot ulcer due to type 2 diabetes mellitus 14177631545 00 Active 2018 [facility], [facility] 4 19:01:31 Family disrupti on 18795110 Active 2018 [facility], [facility]. 4 19:00:34 Otalgia of left ear 1821235436 Active 2019 [facility], [facility]. 4 19:06:35 Disorder of ear 62881139 Completed 201907/10/2020 Problem Code: H93.8x9; Problem Code Type: ICD-10; Not Available [facility] 3 04:42:41 Disorder of sacrum 37845782 Completed 202002/13/2021 Not Available [facility] 3 04:42:41 Cellulit is of finger 88776578 Completed 202003/07/2021 02/06/20 21 - Comments only - Ruth argueta APRN, SHIRA-BC - L 3rd finger Advised soaking 5x daily for 20 minutes at a time in warm water with epsom salts. -Patient adamant that she would like to get abx, and is very anxious that infectio n will worsen. -We agreed that she will try soaking 4-5x during the rest of today, and if no improvem ent or worsenin g sx tomorrow can start Keflex - Rx sent. However, should continue soaking finger even if she does start abx. -Follow up promptly with worsenin g sx or lack of improvem ent. Problem Code: L03.019; Problem Code Type: ICD-10; Not Available [facility] 3 04:42:41 Genitour inary symptoms 644899597 Completed 202003/07/2021 Problem Code: R39.9; Problem Code Type: ICD-10; Not Available [facility] 3 04:42:41 Myoneura l disorder 876152799 Active 2020 [place] [facility] 4 19:05:56 Anorecta l disorder 115480850 Completed 202005/07/2021 Problem Code: K62.89; Problem Code Type: ICD-10; Not Available [facility] 3 04:42:42 Family history of malignan t neoplasm of digestiv e organ 201133144 Completed 202012/27/2023 Problem Code: Z80.0; Problem Code Type: ICD-10; [facility] 4 19:01:22 Disorder of skin and/or subcutan eous tissue 64454800 Completed 202006/17/2021 Problem Code: L98.9; Problem Code Type: ICD-10; Not Available [facility] 3 04:42:42 Digestiv e system finding 752570465 Completed 202012/27/2023 Problem Code: R19.8; Problem Code Type: ICD-10; [facility] 4 18:59:58 History of polyp of colon 656934400 Completed 201712/27/2023 Problem Code: Z86.010; Problem Code Type: ICD-10; [facility]. 4 19:04:48 Genitour inary symptoms 825859251 Completed 202103/09/2022 Problem Code: R39.9; Problem Code Type: ICD-10; Not Available [facility] 3 04:42:43 Acute pharyngi tis 776456404 Completed 202104/08/2022 Problem Code: J02.9; Problem Code Type: ICD-10; Not Available [facility] 3 04:42:43 Streptoc occal sore throat 15113349 Completed 202104/09/2022 Problem Code: J02.0; Problem Code Type: ICD-10; Not Available [facility] 3 04:42:43 Vaccine declined by patient 32170197512 2 Active 2021 [facility]. 4 19:07:41 Pain of left knee joint 15400648403 4107 Active 2022 [facility]. 4 19:07:11 Pain of right knee joint 56782950118 4100 Completed 202202/17/2023 Problem Code: M25.561; Problem Code Type: ICD-10; Not Available [facility] 3 04:42:43 Proteinu oz 34076750 Completed 202212/27/2023 Problem Code: R80.9; Problem Code Type: ICD-10; [facility]. 4 19:10:36 Candidia sis of vagina 49999124 Completed 201904/06/2023 Problem Code: B37.3; Problem Code Type: ICD-10; SHIRA PACHECO [address], [place], [address] , [facility]. 4 13:27:50 Pain in finger of left hand 75609480179 9105 Completed 202101/04/2023 Problem Code: M79.645; Problem Code Type: ICD-10; Not Available [facility] 3 04:42:44 Counseli jhonny Completed 201711/17/2018 Problem Code: Z71.89; Problem Code Type: ICD-10; Not Available [facility] 3 04:42:44 Acute non-infe ctive otitis externa 671628630 Completed 201702/19/2019 Problem Code: H60.502; Problem Code Type: ICD-10; Not Available [facility] 3 04:42:44 Chronic sinusiti s 40002256 Completed 202204/06/2023 Problem Code: J32.9; Problem Code Type: ICD-10; Not Available [facility] 3 04:42:45 Polyneur opathy 56786954 Completed 201711/17/2018 Problem Code: G62.9; Problem Code Type: ICD-10; Not Available [facility] 3 04:42:45 Acute conjunct ivitis 18314550 Completed 202204/06/2023 Problem Code: H10.30; Problem Code Type: ICD-10; Not Available [facility] 3 04:42:45 of relative Active 2022 [facility] 4 18:59:10 Diabetes mellitus 84288428 Active 2023 [facility]. 4 18:59:17 Ankle edema 68586643 Active 2023 [facility]. 4 18:56:40 Parathyr oid hormone measurem ent 8764244 Active 2015 [facility] 4 18:57:42 Dysplasi a of cervix 61936015 Active [facility] 4 18:58:46 Abdomina l pain 95709725 Active 2020 Efren Orozco [facility] 4 18:59:54 Family history of cancer of colon 722004115 Active 2020 Efren Orozco [facility] 4 19:01:18 Adenomat ous polyp of colon 061395693 Active 2017 Tubular adenoma 2018. Poor prep 08/06/21 ; Cologuar d neg 01/09/22. Efren Orozco [facility] 4 19:04:24 Seborrhe ic keratosi s 148946700 Active [facility] 4 19:08:30 Retinopa thy due to diabetes mellitus 9403791 Active [facility] 4 19:09:31 Albuminu oz 590645448 Active 2022 [place] [facility] 4 19:10:34 Cough 00943405 Active 2023 SHIRA AVALOS [address], [place], [address] , [facility] 4 16:33:03 Prolapse of uterus with rectocel e Active 2023 SHIRA PACHECO [address], [place], [address] , [facility] 4 15:09:54 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 948796503 Active 2023 YESI PALMER, [facility] 4 13:22:07 Neuropat hy due to diabetes mellitus 522935258 Active 2023 JOAN CARLSON MA null, [facility] 4 13:22:22 Acute urinary tract infectio n 625743511 Active [address], [facility] [address] , [facility] 4 13:23:31 Dysuria 40057417 Active [address], [facility] [address] [place] [address] 4 13:30:02 Dyslipid emia 702666014 Active 2023 JOAN CARLSON MA null, [facility] 4 10:57:35 Urogenit al finding 996145053 Active [address], [address] 4 10:44:09 Urinary symptoms 274504937 Active [address], [facility] [address] [place] [address] 4 10:46:01 Candidia sis of vagina 66430963 Active 2023 Problem Code: B37.3; Problem Code Type: ICD-10; SHIRA PACHECO Dr, [facility] [address] , [facility] 4 13:27:49 Bacteria l vaginosi s 031720338 Active [address], [facility] [address] [place] [address] 4 13:28:47 Chronic urinary tract infectio n 240889463 Active [address], [facility] [address] , [facility] 4 09:00:13 Problem Notes None recorded. Procedures Surgical History None recorded. Imaging Results Imaging Date Name Status LastModified by Organiz ation Details LastModified Time 05/07/2020 US, abdomen completed Information n ot available 07/08/2024 00:14:50 04/17/2019 NM, bone scan, 3-phase completed Information not available 07/08/2024 00:14:55 06/11/2022 US, abdomen completed Information n ot available 07/08/2024 00:15:10 05/06/2020 US, abdomen completed Information n ot available 07/08/2024 00:15:17 06/18/2020 MRI, head completed Information no t available 07/08/2024 00:15:27 04/26/2019 XR, foot completed Information no t available 07/08/2024 00:15:29 Procedure Notes None recorded. Medical Equipment None Reported. Allergies No known drug allergies Medications Name Sig Start Date Stop Date Status Note LastModified by Organization Details LastModified Time bella es complete chw TAKE 1 TABLET BY MOUTH TWICE DAILY 12/05 completed Not Available Not Available Not Available cyclobenz aprine 10 mg tablet TAKE ONE TABLET BY MOUTH AT BEDTIME NEEDED FOR PAIN active Not [...] mg tablet TAKE ONE TABLET BY MOUTH TWICE A DAY active Not Available Not Available No t Available terconazo le 0.4 % vaginal cream Apply as directed for vulvovag inal candidia sis 07/25 completed Not Available Not Available Not Available cefpodoxi me 200 mg tablet TAKE ONE TABLET BY MOUTH EVERY 12 HOURS FOR 10 DAYS 09/18 completed Not Available Not Available Not Available biotin 5 mg capsule Take 1 cap by mouth daily 05/15 completed Not Available Not Available Not Available fluconazo le 150 mg tablet TAKE 1 TABLET BY MOUTH NOW AND MAY REPEAT IN 72 HOURS IF NO IMPROVEM ENT 06/18 completed Not Available Not Available Not Available benzonata te 200 mg capsule TAKE ONE CAPSULE BY MOUTH THREE TIMES A DAY 09/18 completed Not Available Not Available Not Available glipizide ER 10 mg tablet, extended release 24 hr TAKE ONE TABLET BY MOUTH TWICE A DAY active Not Available Not Available No t Available glipizide 10 mg tablet Take 1 tab by mouth twice daily 2017 active Not Available Not Available Not Avai lable miconazol e nitrate 2 % vaginal cream INSERT ONE APPLICAT ORFUL VAGINALL Y EVERY DAY FOR 7 DAYS 09/18 completed Not Available Not Available Not Available Bella es Complete (iron) chewable tablet Take [...] FOUR TIMES A DAY NEEDED FOR MUSCLE SPASM active Not Available Not Available No t Available cyanocoba italo (vit B-12) 500 mcg tablet TAKE 1 TABLET BY MOUTH ONCE DAILY active Not Available Not Available No t Available oxycodone -acetamin ophen 10 mg-325 mg tablet Take 1 tablet by mouth six times a day as needed. 2023 active start date 11/19/24 Not Available Not Available Not Available baclofen 10 mg tablet TAKE ONE TABLET BY MOUTH FOUR TIMES A DAY 09/05 completed Not Available Not Available Not Available cephalexi n 500 mg capsule TAKE ONE CAPSULE BY MOUTH TWICE A DAY FOR 5 DAYS 06/18 completed Not Available Not Available Not Available erythromy saloni 5 mg/gram (0.5 %) [...] capsule TAKE TWO CAPSULES BY MOUTH EVERY EVENING AT BEDTIME active Not Available Not Available No t Available omeprazol e 20 mg capsule,d elayed release TAKE ONE CAPSULE BY MOUTH EVERY DAY 09/18 completed Not Available Not Available Not Available Banophen 25 mg capsule TAKE ONE [...] Available estradiol 0.01% (0.1 mg/gram) vaginal cream Insert 0.5 g twice a week by vaginal route. 2023 active Not Available Not Available Not Avai lable Cortispor in-TC 3.3 mg-3 mg-10 mg-0.5 mg/mL [...] PUFFS BY MOUTH EVERY 4 HOURS NEEDED 09/18 completed Not Available Not Available Not Available Bactrim DS 800 mg-160 mg tablet Take 1 tablet every 12 hours by oral route for 5 days. 2023 active Not Available Not Available Not Avai lable Benadryl Allergy 25 mg tablet Take 1 [...] ONE CAPSULE BY MOUTH TWICE A DAY 06/18 completed Not Available Not Available Not Available [...] x 3 months, then Qweek 07/27 completed [facility] dermatol ogy Not Available Not Available Not Available Multivita l 0.4 mg-162 mg-18 mg tablet 1 tab qd, chewable 02/19 completed Not Available Not Available Not Available FreeStyle Lite Meter kit TEST TWO TIMES A DAY active Not Available Not Available No t Available FreeStyle Lite Strips TEST TWO TIMES A DAY active Not [...] Not Available Not Available No t Available [place] es Complete (iron) 18 mg iron chewable tablet TAKE 1 TABLET BY MOUTH TWICE DAILY 12/05 completed Not Available Not Available Not Available Invokana 100 mg tablet Take 1 tablet by mouth daily 2016 active Not Available Not Available Not Avai lable Invokana 300 mg tablet TAKE ONE TABLET BY MOUTH EVERY DAY active Pt states every other day, per [place] doctor Not Available Not Available Not Available cyanocoba italo (vit B-12) 2,000 mcg tablet Take 1 tab by mouth every other day 2020 active per endo Not Available Not Available Not Avai lable [place] es Complete chewable tablet take 2 tablets a day 2023 active Not Available Not Available Not Avai lable Cosentyx 300 mg/2 Syringes (150 mg/mL) subcutane ous Inject 2 syringe subcutan eously once a month Rx by derm 05/16 completed Not Available Not Available Not Available Cosentyx Pen 300 mg/2 Pens (150 mg/mL) subcutane ous monthly active Not Available Not Available Not Available Qvar RediHaler 80 mcg/actua tion HFA breath activated aerosol INHALE TWO PUFFS BY MOUTH TWICE A DAY 09/18 completed Not Available Not Available Not Available Humira(CF ) 10 mg/0.1 mL subcutane [...] Not Available Not Available Not Available Bella ruth Complete (ferrous sulfate) 10 mg iron chewable [...] Updated DateTime 4 157.48 cm 28.9 kg/m2 69582.5 9 g 98 % 98 % 83 /min 97.5 [degF] 110 mm[Hg] 72 mm[Hg] SOURAV WAYNE MA [facility] 4 10:08:16 Date Recorded Body height Body temperature Oxygen saturation Oxygen saturation in Arterial blood by Pulse oximetry Heart rate Systolic blood pressure Diastolic blood pressure Provider Name and Address Organization Details Last Updated DateTime 4 157.48 cm 98 [degF] 96 % 96 % 79 /min 124 mm[Hg] 68 mm[Hg] RUBINA MOJICA RN [facility] 4 10:42:02 Date Recorded Body height Body mass index (BMI) Body weight Body temperature Oxygen saturation Oxygen saturation in Arterial blood by Pulse oximetry Heart rate Systolic blood pressure Diastolic blood pressure Provider Name and Address Organization Details Last Updated DateTime 4 157.48 cm 29.1 kg/m2 33122.2 9 g 97.8 [degF] 95 % 95 % 88 /min 122 mm[Hg] 70 mm[Hg] TEREZA CARLOS LPN [facility] 4 15:43:08 Date Recorded Body height Body temperature Oxygen saturation Oxygen saturation in Arterial blood by Pulse oximetry Heart rate Systolic blood pressure Diastolic blood pressure Provider Name and Address Organization Details Last Updated DateTime 4 157.48 cm 97.9 [degF] 98 % 98 % 102 /min 102 mm[Hg] 60 mm[Hg] SANTOSH GILES RN [facility] 13:40:28 Social History Question Answer Notes LastModified by Organizat ion Details LastModified Time Tobacco Smoking Status Never Smoker Margi Og RN [facility], [facility] 09/21/2023 10:52:50 What Was The Date Of Your Most Recent Tobacco Screening? 09/18/2024 [email or web address] Information not available 09/18/2024 Has Tobacco Cessation Counseling Been Provided? No [email or web address] Information not available 12/29/2023 Do You Or Have You Ever Used Any Other Forms Of Tobacco Or Nicotine? No [email or web address] Information not available 12/29/2023 Sex: Female Functional Status None recorded. Mental Status None recorded. Family History Relationship Description Onset Age of this Age Resolved Age Notes LastModified by Organization Details LastModified Time Father Family history of malignant neoplasm colon Not available 2022 03:50:00 Father Family history of stroke Not available 2022 03:50:05 Father Family history of diabetes mellitus type 1 Not available 2022 03:50:11 Sister Family history of malignant neoplasm cervic al Not available 09/01/2023 03:50:00 Sister Family history of diabetes mellitus type 1 Not available 2022 03:50:12 Unspecified Relation Family history of diabetes mellitus type 1 Relati ve: 'Aunt' ; Not available 09/01/2023 03:50:11 Unspecified Relation Family history of diabetes mellitus type 1 Relati ve: 'Uncle '; Not available 09/01/2023 03:50:12 Brother Family history of diabetes mellitus type 1 Not available 2022 03:50:11 Mother Family history of diabetes mellitus type 1 Not available 2022 03:50:12 Notes:*Problem: Strong FHx T ype 2 DM [...] pneumococcal polysaccharide PPV23 09/10/2014 completed Not Available [facility] 2022 06:13:57 Past Encounters Encounter ID Performer Location Encounter Start Date Encounter Closed Date Diagnosis/Indication Diagnosis SNOMED-CT Code Diagnosis ICD10 Code [id number] [address] [address] 09/21/2023 10:30:46 09/21/2023 11:42:13 Renal disorder due to type 2 diabetes mellitus 524140706 E11.21 Chronic pain 60326342 G8 9.29 History of gynecological disorder 633385959 Z87.[id number] [address] 5 12/14/2023 08:52:37 12/14/2023 11:34:05 Chronic pain 59247411 G89.29 Psoriasis 9037736 L40.9 Gastroesop hageal reflux disease without esophagitis 849515174 K21.9 Ankle edema 23157795 R60 .0 History of bariatric surgical procedure 414257912 Z98.84 Screening colonoscopy 44 9358819 Z12.[id number] [address] 12/29/2023 10:42:56 12/29/2023 12:34:03 Pre-surgery evaluation 618353414 Z01.[id number] [address] 5 01/03/2024 15:19:29 01/03/2024 17:15:13 Cough 21067660 R05.[id number] [address] 5 04/04/2024 12:49:19 04/04/2024 14:42:52 Chronic pain 85587425 G89.29 Diabetes mellitus 528486 09 E11.9 Psoriasis 9567388 L40.9 Prolapse o f uterus with rectocele 5892227782 N81.[id number] [address] 04/23/2024 12:45:50 04/23/2024 13:37:58 Acute urinary tract infection 740695471 N39.[id number] [address] 5 05/15/2024 09:49:00 05/15/2024 10:38:47 Urinary symptoms 599302878 R39.9 Diabetes mellitus 978260 09 E11.9 [id number] RUBINA MOJICA RN [address] [address] 06/12/2024 10:28:46 06/12/2024 11:23:06 Urinary symptoms 504115317 R39.9 Candidiasis of vagina 72 982773 B37.31 Bacterial vaginosis 4197 68479 N76.0 [id number] CATIA DUNN, [address] [address] 5 06/18/2024 15:35:22 06/18/2024 16:20:44 Acute urinary tract infection 879966820 N39.0 Vaginitis 22225753 N76.[id number] [address] 5 06/28/2024 08:11:26 06/28/2024 11:56:07 Chronic pain 34296010 G89.29 Chronic ur inary tract infection 657938361 N39.0 [id number] Sena Méndez [address] [address] 09/18/2024 12:58:26 09/18/2024 14:30:59 Chronic pain 02540298 G89.29 Acute urin jeremy tract infection 250551676 N39.0 Atrophic vaginitis 41589 000 N95.2 Health Concerns Section Related Observation LastModified by Organization Detai ls LastModified Time None Recorded Concern Status LastModified by Organization Details LastModified Time None Recorded Advance Directives Directive None Recorded Payers Encounter Date Sequence Insurance Name Policy Number Policy Lema Covered Member ID Lema Member ID Guarantor Name 05/15/2024 1 [facility] (MEDICAID) Martha Benoit [id number] Martha Benoit 06/12/2024 1 [facility] (MEDICAID) Martha Benoit [id number] Martha Benoit 06/18/2024 1 [facility] (MEDICAID) Martha Benoit [id number] Martha Benoit 06/28/2024 1 [facility] (MEDICAID) Martha Benoit [id number] Martha Benoit Notes Date Note Type Note Provider Name and Address Organization Details Recorded Time 05/15/2024 text/html Patient reports urinary symptoms and concerns about diabetes [...] fever, chills, Shortness of breath, chest pain, N/V/D.Patient is reporting some dysuria, frequency and a feeling like pressure/fullness in her bladder yesterday when making appt, symptoms have resolved today ERIC GOMEZ, [address], [place], [address], [facility]. 05/15/2024 10:46:54 06/12/2024 text/html Patient presents with concerns regarding ongoing urinary tract infection and possible yeast infection. The patient is a 58-year-old female who has an ongoing urinary tract infection. She has been taking nitrofurantoin since 8/16, with the last pill taken tomorrow morning. Her urologist has recommended a urinary test 2-3 days after stopping the medication to assess if the infection is completely gone or if it is recurring. The patient reports feeling better, with no current symptoms of urinary tract infection. The patient suspects that she has developed a yeast infection as a result of antibiotic treatment and has experienced this cycle in the past. She has not taken oral medication for the yeast infection, but has used a cream similar to Monistat to relieve discomfort. - Not discussed SH - Not discussed - Not discussed RUBINA MOJICA RN [facility], [facility] 06/12/2024 14:13:02 06/18/2024 text/html Pt is a 58 y/o F Here for continued UTI sxs of frequency, urgency, burning on urination. She states she had been having yeast vaginitis sxs, took a second diflucan this morning for sxs. Pt with hx of DM2, SGLT2 use, and recurring UTI. Pt was treated with bactrim x3 days 8 weeks ago, states this did not help infection ,was treated with cephalexin x2 with returning infection and macrobid x 2 courses with temporary relief. Pt states sxs have returned. She denies fever, chills, nausea, vomiting, diarrhea, abdominal pain, flank pain, hematuria, concern for STI. [address], [place], [address], [facility]. 06/19/2024 12:14:58 06/28/2024 text/html A 58-year-old fe male patient presents for a telehealth visit to discuss her chronic pain syndrome and ongoing issues with urinary tract infections and yeast infections. The patient reports that she has been experiencing recurrent UTIs for several months and has been treated with Bactrim, Cephalexin, Macrobid, and most recently Cefpodoxime. She is currently still taking Cefpodoxime with two days left in her course. The patient has also been using miconazole vaginal cream for a suspected yeast infection and has noticed some improvement in her symptoms. However, she still experiences vaginal burning and irritation, but denies any discharge. The patient has a history of bacterial vaginosis and has used boric acid suppositories in the past. She is considering trying boric acid suppositories again to help with her current symptoms. The patient also reports having surgery in December for bladder and bowel prolapse, but her urologist does not believe her current issues are related to the surgery. In addition to her urinary and vaginal symptoms, the patient is managing her chronic pain with oxycodone.. She reports that her pain is stable and she is satisfied with her current medication regimen. The patient also mentions having flu-like symptoms recently, which she believes she contracted from a friend who had recently received the flu vaccine. ERIC GOMEZ, [employer] [address], [place], [address], [facility]. 06/28/2024 09:02:30 OBGyn Episode No OBEpisode recorded.
--- OUTSIDE RECORDS SUMMARY | 2024-09-18 16:02 | XMS_ITS | Encounter Summary ---
Author Organization [facility] Address [address] [place] [address] Care Team Providers Care Torpedo Worker Name Role Phone Katia Haywood Primary Care Provider [phone] Reason for Visit * Reason Comments Foot Problem Encounter Details Date Type Department Care Team (Latest Contact Info) Description 05/22/2024 10:00 EDT Office Visit [facility] - [address] [address] Edwige Keller DPM [address] [place] [address] Hyperkeratosis (Primary Dx); Type 2 diabetes mellitus with diabetic polyneuropathy, with long-term current use of insulin ([facility]) Social History Tobacco Use Types Packs/Day [...] 03/11/2016 13:57 EDT documented in this encounter Progress Notes * Edwige Keller, DPM - 05/22/2024 1000 EDT Martha Benoit is a very pleasant 58 y.o. female patient who presents for follow up. Noticed a spot in the middle of the callus on her left heel and was worried about getting a wound here. She has been watching it. Has not noticed any redness or swelling. No drainage. No pain. She continues to apply lotion for the calluses and pared them down occasionally. She is very careful with this as she does not want to have a wound again. Patient Active Problem List Diagnosis Date Noted Diabetes mellitus ([facility]) 08/11/2014 Vitamin D deficiency 01/28/2010 Morbid obesity ([facility]) 01/22/2010 Mild dysplasia of cervix ([facility]) 06/26/2009 Past Medical History: Diagnosis Date Activity, other involving cardiorespiratory exercise uses a walker , unable to do stairs reported 12/2023 Diabetes mellitus ([facility]) tx w/ insulin and oral meds last [...] 01/04/16 LEEP 07/15/2009 TUBAL LIGATION Social History Tobacco Use Smoking status: Never Passive exposure: Never Smokeless tobacco: Never Substance Use Topics Alcohol use: Not Currently Family History Problem Relation Age of Onset Colon Cancer Father Diabetes Father Stroke Father Cervical Cancer Sister Diabetes Sister Heart Disease Sister NC at age 42 = Diabetes Mother Diabetes Brother Diabetes Maternal Aunt Diabetes Maternal Uncle Current Outpatient Medications Medication Sig Dispense Refill baclofen (LIORESAL) 10 mg tablet Take 1 Tablet by mouth 4 times daily. canagliflozin (INVOKANA) 300 mg tablet Take 1 Tablet by mouth daily. ciclopirox (PENLAC) 8 % solution Apply to affected nails daily as instructed (Patient not taking: Reported on 01/18/2024) 1 Bottle 1 cyclobenzaprine (FLEXERIL) 10 mg tablet Take 1 Tablet by mouth at bedtime. 90 Tablet 0 ergocalciferol (DRISDOL; VITAMIN D2) 1,250 mcg (50,000 unit) capsule Take 1 Capsule by mouth once aweek. estradioL (ESTRACE) 0.01 % (0.1 mg/gram) vaginal cream Place 0.5 g vaginally twice a week. 42.5 g 3 furosemide (LASIX) 40 mg tablet Take 1 Tablet by mouth daily. Reported on 03/13/2017 gabapentin (NEURONTIN) 300 mg capsule Take 1 Capsule by mouth 2 times daily. glipiZIDE (GLUCOTROL) 10 mg tablet Take 1 Tablet by mouth 2 times daily. insulin lispro (HUMALOG) 100 unit/mL injection Inject into the skin 3 times daily. Sliding scale levothyroxine (SYNTHROID) 25 mcg tablet Take 1 Tablet by mouth daily. lidocaine 5 % (LIDODERM) 5 % patch Place 1 Patch onto the skin daily. metformin (GLUCOPHAGE) 500 mg tablet Take 1 Tablet by mouth 3 times daily before meals. nitrofurantoin (MACRODANTIN) 100 mg capsule Take 1 Capsule by mouth 2 times daily. 5 days, started 05/20/24 nystatin (MYCOSTATIN) powder 3 times daily as needed. omeprazole (PRILOSEC) 20 mg capsule Take 1 Capsule by mouth daily. oxyCODONE (ROXICODONE) 5 mg immediate release tablet Take 1 Tablet by mouth every 4 hours as neededfor Pain. Daily Max: 30 mg (Patient not taking: Reported on 05/22/2024) 10 Tablet 0 oxyCODONE-acetaminophen (PERCOCET) 10-325 mg per tablet Take 1 Tablet by mouth every 4 hours as needed for Pain. Takes 5 tabs daily pediatric multivitamin no.76 tablet,chewable Take 1 Tab by mouth. secukinumab (COSENTYX, 2 SYRINGES,) 150 mg/mL syringe Inject 2 mL into the skin every 4 weeks. Every 28 days triamcinolone (KENALOG) 0.1 % ointment APPLY TOPICALLY TO ARMS LEGS AND ABDOMEN TWO TIMES A DAY NEEDED No current facility-administered medications for this [...] less than 3 seconds to all toes. Very mild callus buildup left plantar heel. No underlying open areas. No erythema or edema. No pain on palpation. No fluctuance. Fat pad atrophy central heel. No other open lesions. Protective sensation absent. Unable to assess manual muscle testing on the left. ASSESSMENT: 1. Hyperkeratosis 2. Type 2 diabetes mellitus with diabetic polyneuropathy, with long-term current use of insulin ([facility]) No orders of the defined types were placed in this encounter. PLAN: Ms. Benoit presents today for follow-up. I pared down the callus tissue on the plantar left heel. I do not see any concerning findings. No open areas. No foreign bodies. No pain. No signs of infection. She will continue with callus care, which we reviewed today. Monitor for any open area or signs ofinfection. She will follow-up with me as needed. She knows to call with any questions or concerns and is happy with this plan. Portions of this document have been prepared with speech recognition software or keyboard big data engineer techniques. Minor irregularities or keyboarding misprints may be present documented in this encounter Plan of Treatment Upcoming Encounters Date Type Department Care Team (Late st Contact Info) Description 02/05/2025 11:00 EDT Office Visit [facility] Pelvic Medicine and Reconstructive Surgery - Medical Office [facility] [address] [place] [id number] Solange Garcia PA-C [address] [place] [address] Medical Office Building, [address] [place] [phone] documented as of this encounter Visit Diagnoses Diagnosis Hyperkeratosis- Primary Acquired keratoderma Type 2 diabetes mellitus with diabetic polyneuropathy, with long-term current use of insulin ([facility]) documented in this encounter Historical Medications * This list may reflect changes made after this encounter. nitrofurantoin (MACRODANTIN) 100 mg capsule Take 1 Capsule by mouth 2 times daily. 5 days, started 05/20/24 added in this encounter Care Teams Torpedo Worker Relationship Specialty Start Date End Date Katia Haywood [address] [place] [id number] PCP - General Family Medicine - Primary Care 06/20/23 documented as of this encounter
--- OUTSIDE RECORDS SUMMARY | 2024-09-18 16:02 | XMS_ITS | Clinical Summary ---
Author Organization [facility] Address [address] [place] [address] Care Team Providers Care Human Performance Professor Name Role Phone Katia Haywood Primary Care Provider [phone] Allergies No known active allergies Medications metformin (GLUCOPHAGE) 500 mg tablet Take 1 Tablet by mouth 3 times daily before meals. Active glipiZIDE (GLUCOTROL) 10 mg tablet Take 1 Tablet by mouth 2 times daily. Active oxyCODONE-acetam inophen (PERCOCET) 10-325 mg per tablet Take 1 Tablet by mouth every 4 hours as needed for Pain. Takes 5 tabs daily Active furosemide (LASIX) 40 mg tablet Take 1 Tablet by mouth daily. Reported on 03/13/2017 Active ergocalciferol (DRISDOL; VITAMIN D2) 1,250 mcg (50,000 unit) capsule Take 1 Capsule by mouth once a week. Active insulin lispro (HUMALOG) 100 unit/mL injectionIndicat ions:per patient insulin called 70/30 Inject into the [...] nails daily as instructed 1 Bottle 1 9 Active canagliflozin (INVOKANA) 300 mg tablet Take 1 Tablet by mouth daily. 9 Active triamcinolone (KENALOG) 0.1 % ointment APPLY TOPICALLY TO ARMS LEGS AND ABDOMEN TWO TIMES A DAY NEEDED 8 Active pediatric multivitamin no.76 tablet,chewable Take 1 Tab by mouth. 9 Active nystatin (MYCOSTATIN) powder 3 times daily as needed. 0 Active cyclobenzaprine (FLEXERIL) 10 mg tablet Take 1 Tablet by mouth at bedtime. 90 Tablet 1 Active secukinumab (COSENTYX, 2 SYRINGES,) 150 mg/mL syringe Inject 2 mL into the skin every 4 weeks. Every 28 days Active levothyroxine (SYNTHROID) 25 mcg tablet Take 1 Tablet by mouth daily. Active oxyCODONE (ROXICODONE) 5 mg immediate release tablet Take 1 Tablet by mouth every 4 hours as needed for Pain. Daily Max: 30 mg 10 Tablet 4 Active estradioL (ESTRACE) 0.01 % (0.1 mg/gram) vaginal cream Place 0.5 g vaginally twice a week. 42.5 g 3 4 Active Additional Information Patient not taking.Reported on 07/18/2024 nitrofurantoin (MACRODANTIN) 100 mg capsule Take 1 Capsule by mouth 2 times daily. 5 days, started 05/20/24 Active Active Problems Patient Care Coordination No te Formatting of this note migh t be different from the original. Patient needs low table, room patient with a hydraulic adjustable height table only! Problem Noted Date Diagnosed Date Diabetes mellitus ([facility]) 08/11/2014 Vitamin D deficiency 01/28/2010 Morbid obesity ([facility]) 01/22/2010 Mild dysplasia of cervix (AIDEN I) 06/26/2009 Overview (09/09/2024): Psoriasis on immunosupressant 06/2009, LEEP - AIDEN I - neg [...] pos, HPV 18/45 pos, HPV 16 neg 06/2024 colpo cx bx At least squamous intra-epithelial lesion, cannot exclude high-grade , ECC AIDEN I, vag bx atypia possible LSIL 08/2024 LEEP cone - ectocx neg (prior bx site seen), endocx neg, ECC neg Wants to use [facility] - sent 08/2024 May need imiquimod if more VAIN Encounters Date Type Department Care Team Description 09/09/2024 Telephone [facility] [address] [phone] Katy Lubin MD Results 08/29/2024 8:45 EST Procedure visit [facility] [address] [phone] Katy Lubin MD Mild dysplasia of cervix (AIDEN I) (Primary Dx) 07/26/2024 Telephone [facility] [address] [phone] Jessica Murray NP Biopsy Results 07/18/2024 13:00 EDT Procedure visit [facility] [address] [address] Jessica Murray NP Cervical 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 (Primary Dx) from Last 3 Months Surgical History Surgery Date Site/Laterality Comments LEEP 07/15/2009 CERVIX LESION DESTRUCTION 07/15/2009 TUBAL LIGATION GASTRIC BYPASS SURGERY 01/04/16 Medical History Medical History Date Comments Unspecified cerebral artery occlusion with cerebral infarction 2006 was found incidentally, no residual issues reported 12/2023 Diabetes mellitus ([facility]) tx w / insulin and oral meds [...] Cancer Sister Diabetes Sister Heart Disease Sister [place] at age 42 = d eath Relation [...] Reading Time Taken Comments Blood Pressure 110/60 08/29/2024 0859 EST Pulse 89 12/28/2023 0957 EST Temperature 36.5 [...] Info) Description 02/05/2025 11:00 EDT Office Visit [facility] - Medical Office Building [facility] [address] [place] [address] [phone] Solange Garcia PA-C [address] [place] [address] Medical Office [facility], [address] [phone] Health Maintenance Due Date Last Done Comments Foot Exam 1965 Hemoglobin A1C (Ha1C) 1965 Microalbumin/Creatinine Ratio 1965 Lipid Profile Screening (Cholesterol) 1966 Eye Exam 09/17/2019 09/17/2018 RSV Immunization ( o r 60+ Years) (1 - Risk 60-74 years 1-dose series) 2023 COVID-19 Vaccine ( season) 2024 Hepatitis C Screen Completed 05/22/2018 Procedures Procedure Name Priority Date/Time Associated Diagnosis Comments SURGICAL PATHOLOGY Routine 08/29/2024 11 :43 EST Mild dysplasia of cervix (AIDEN I) SURGICAL PATHOLOGY Routine 07/18/2024 13 :47 EDT Cervical 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 PAP TEST Routine 07/18/2024 13:47 EDT Cervical 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 HPV DNA DETECTION WITH GENOTYPING, PCR Today 07/18/2024 13:47 EDT Cervical 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 HEPATITIS C AB W REFLEX TO HCV RNA BY PCR Routine 05/22/2018 12:02 EDT Routine screening for STI (sexually transmitted infection) from Last 3 Months or Most Recently Relevant to Health Maintenance Results * SURGICAL PATHOLOGY (08/29/2024 11:43 EST) Only the most recent of2 resultswithin the time period is included. Note to Patient The following pathology results have been interpreted by your pathologist and may be available to you before your health provider has had the opportunity to review them. Please allow time for your provider to receive these results and explore management options, if applicable. 09/04/2024 10:57 [facility] Final Diagnosis A. CERVIX, ECTOCERVIX, LOOP ELECTROSURGICAL EXCISION PROCEDURE (LEEP): - Benign cervical tissue with squamous metaplasia, parakeratosis and prior biopsy site. - Negative for intraepithelial lesion or malignancy. B. CERVIX, ENDOCERVIX, LOOP ELECTROSURGICAL EXCISION PROCEDURE (LEEP): - Benign endocervical tissue. C. ENDOCERVIX, CURETTAGE: - Fragments of benign endocervix. 09/04/2024 10:57 [facility] Attestation There was significant resident/fellow involvement in the diagnostic evaluation of this case. By the signature below, the attending physician certifies that they have personally conducted a gross and/or microscopic examination of the described specimens and rendered or confirmed the above diagnosis. 09/04/2024 10:57 [facility] at 1057 Clinical History senior care HPV pos, recent cx bx intraepithelial lesion suggestive of high grade; clinical diagnosis code: N87.1 09/04/2024 10:57 [facility] Gross Description A. Received in formalin labelled with proper patient identification (initials P, J) and ectocervix is an unoriented are 3 unoriented irregular fragments of russell-pink cauterized cervical tissue (0.9 x 0.7 x 0.2 cm to 1.1 x 0.4 x 0.2 cm). The margins are inked blue. The tissues are sectioned and submitted entirely as follows: BLOCK COSTA: A1- single tissue, bisected A2- single tissue, bisected A3-A4- single tissue, quadrisected B. Received in formalin labelled with proper patient identification (initials P, J) and endocervix, true margin is inked are four russell irregular unoriented cauterized cervical tissues (0.4 x 0.2 x 0.1 cm to 0.9 x 0.8 x 0.2 cm) received pinned on a piece of corkboard. Each tissue is received with a spot of black ink representing the true margin. The tissues are sectioned and submitted entirely in B1-B5. C. Received in formalin labelled with proper patient identification (initials P, J) and ECC is an aggregate of russell slightly mucinous soft tissue (0.4 x 0.3 x 0.1 cm). Submitted entirely in C1. BERE CARTER(ASCP) 08/30/2024 16:10 09/04/2024 10:57 EST [facility] Resident/Jaison w: Joann Sage MD 09/04/2024 10:57 EST [facility] Performing Lab [facility] 10:57 [facility] Scanned Images 09/04/2024 10:57 EST [facility] Tissue ENDOCERVICAL STRUCTURE / Unknown Collection, Other / Unknown 08/29/2024 11:43 EST 08/29/2024 14:26 EST Tissue specimen (specimen) CERVIX UTERI STRUCTURE / Unknown 08/29/2024 11:43 EST 08/29/2024 14:26 EST Tissue specimen (specimen) ENDOCERVICAL STRUCTURE / Unknown 08/29/2024 11:43 EST 08/29/2024 14:26 EST us Katy Lubin MD PATHOLOGY ORDERABLES Final Result [facility] [address] [place] [address] [phone] * PAP TEST (07/18/2024 13:47 EDT) Specimens A. Cervix and/or Endocervix , ThinPrep Imaging System with Manual Evaluation 07/29/2024 15:36 [facility] Specimen Adequacy Satisfactory for Evaluation - transformation zone component present 07/29/2024 15:36 [facility] General Categorization Negative for intraepithelial lesion or malignancy 07/29/2024 15:36 [facility] Attestation By the signature below, the attending physician certifies that they have personally conducted a gross and/or microscopic examination of the described specimens and rendered or confirmed the above diagnosis. 07/29/2024 15:36 [facility] at 1535 Clinical History Long-term history NIL positive high-risk HPV; +18/45 genotype 07/29/2024 15:36 [facility] Performing Lab [facility] 07/29/2024 15:36 [facility] Scanned Images 07/29/2024 15:36 [facility] HPV High Risk type 16, PCR Negative 07/29/2024 15:36 [facility] HPV High Risk type 18, PCR Positive 07/29/2024 15:36 [facility] HPV Other High Risk Types, PCR Negative The following Other High Risk HPV types were not detected: 31,33, 35, 39, 45, 51, 52, 56, 58, 59, 66 and 68. 07/29/2024 15:36 [facility] Pap Test CERVIX UTERI STRUCTURE / Unknown 07/18/2024 13:47 EDT 07/18/2024 14:44 EDT us Jessica Murray NP PATHOLOGY ORDERABLES Final Res ult [facility] [address] [place] [address] * (ABNORMAL) HPV DNA DETECTION WITH GENOTYPING, PCR (07/18/2024 13:47 EDT) HPV High Risk type 16, PCR Negative Negative 07/29/2024 15:36 EDT [facility] HPV High Risk type 18, PCR Positive(A) Negative 07/29/2024 15:36 EDT [facility] HPV other High Risk types, PCR Negative Negative 07/29/2024 15:36 EDT [facility] Comment: The following Other High Risk HPV types were not detected: ??31,33, 35, 39, 45, 51, 52, 56, 58, 59, 66 and 68. Pap Test CERVIX UTERI STRUCTURE / Unknown 07/18/2024 13:47 EDT 07/26/2024 14:16 EDT Jessica Murray NP MICROBIOLOGY - GENERAL ORDERAB LES Final Result Performing Organization Address City[facility]/ZIP Co de Phone Number [facility] [address] [place] [address] * HEPATITIS C AB W REFLEX TO HCV RNA BY PCR (05/22/2018 12:02 EDT) Hep C Ab w Rfx PCR HCSCR2 Negative Negative 05/23/2018 21:57 EDT [facility] Comment: The results of this assay can be falsely lowered due to the consumption of Biotin. Blood specimen (specimen) BLOOD SPECIMEN / Unknown 05/22/2018 12:02 EDT 05/22/2018 12:36 EDT Kassie Carreon PA-C CHEMISTRY & BLOOD GAS ORDERABLES Final Result [facility] [address] [place] [address] from Last 3 Months or Most Recently Relevant to Health Maintenance Insurance [place] Advance Directives For more information, please contact: [phone] Documents on File Type Date Recorded Patient Scanning Tech Expl anation Advance Directive 01/18/2024 6:46 Power of Civil Cad Designer * Full Code (Latest Code Status on File) Date Activated Date Inactivated Comments 01/18/2024 7:25 01/18/2024 13:30 Question Answer Comments When the patient has NO PULSE: Full Code / CPR Who Made the Decision? Patient Care Teams Human Performance Professor Relationship Specialty Start Date End Date Katia Haywood [address] [place] [phone] PCP - General Family Medicine - Primary Care 06/20/23
--- OUTSIDE RECORDS SUMMARY | 2024-09-18 16:02 | XMS_ITS | Encounter Summary ---
Author Organization [facility] Address [address] [place] [address] Care Team Providers Care Mold Carpenter Name Role Phone Katia Haywood Primary Care Provider [phone] Reason for Visit * Auth/Cert (Routine) Specialty Diagnoses / Procedures Referred By Contpaige t Referred To Contact Diagnoses Cystocele, unspecified Rectocele Procedures GA ANTERIOR COLPORRAPHY RPR CYSTOCELE W/CYSTO GA POST COLPORRHAPHY RECTOCELE W/WO PERINEORRHAPHY anterior colporrhaphy, cystoscopy posterior colporrhaphy Referral ID Status Reason Start Date Expiration Date Visits Re quested Visits Authorized [id number] 1 1 Encounter Details Date Type Department Care Team (Late st Contact Info) Description 01/18/2024 8:25 EDT - 01/18/2024 10:40 EDT Surgery [facility] OR [address] [place] [address] [phone] Chelsi Rivera MD [address] [place] [address] Medical Office Building, [address] [place] [address] anterior colporrhaphy, cystoscopy [63716 (CPT??)] Surgery Details Date/Time Status Location OR Service Patient Class Case Cl ass Case Type Trauma Case? 01/18/2024 0825 Posted [facility] OR [address] Outpatient Surgery H - Elective Panel 1 [...] EDT documented in this encounter Functional Status * Because of [...] 03/11/2016 13:57 EDT documented in this encounter Discharge Instructions [...] this encounter Medications at Time of Discharge baclofen (LIORESAL) 10 mg tablet Take 1 [...] week. furosemide (LASIX) 40 mg tablet Take 1 Tablet by mouth daily. Reported on 03/13/2017 gabapentin (NEURONTIN) 300 mg capsule Take 1 Capsule by mouth 2 times daily. glipiZIDE (GLUCOTROL) 10 mg tablet Take 1 Tablet by mouth 2 times daily. insulin lispro (HUMALOG) 100 unit/mL injectionIndicatio ns:per patient insulin called 70/30 Inject into the [...] Daily Max: 30 mg 10 Tablet 01/18/2024 oxyCODONE-acetamin ophen (PERCOCET) 10-325 mg per tablet Take 1 [...] hours for 10 days. 60 Tablet 01/18/2024 4 docusate sodium (COLACE) 100 mg capsule Take 1 Capsule by mouth daily for 14 days. 14 Capsule 01/18/2024 4 estradioL (ESTRACE) 0.01 % (0.1 mg/gram) vaginal cream Place 0.5 g vaginally three times a week. 42 g 11 03/15/2023 4 polyethylene glycol 3350 (MIRALAX) 17 gram packet Take 17 g by mouth daily for 14 days. 14 Packet 01/18/2024 documented as of this encounter Ordered Prescriptions Prescription Sig Dispense Quantity Refills Last Filled Start Date End Date oxyCODONE (ROXICODONE) 5 mg immediate release tablet Take 1 Tablet by mouth every 4 hours as needed for Pain. Daily Max: 30 mg 10 Tablet 01/18/2024 docusate sodium (COLACE) 100 mg capsule Take 1 Capsule by mouth daily for 14 days. 14 Capsule 01/18/2024 4 polyethylene glycol 3350 (MIRALAX) 17 gram packet Take 17 g by mouth daily for 14 days. 14 Packet 01/18/2024 acetaminophen (TYLENOL) 500 mg tablet Take 2 Tablets by mouth every 8 hours for 10 days. 60 Tablet 01/18/2024 4 documented in this encounter Discharge Disposition Disposition Code Departure Means Destination Comment s Home or Self Fdc documented in this encounter Progress Notes * [...] documented below. Thais Joseph MD 01/18/2024 8:21 Cosigned by Chelsi Rivera MD at 01/19/2024 10:28 EDT Source Note - COMPUTER SYSTEMS CONSULTANT, SCAN 2 - 01/01/2024 16:24 EDT documented in this encounter OR Notes * OR Surgeon - Chula Whitley MD - 01/18/2024 1017 EDT anterior colporrhaphy, cystoscopy Operative Note Date: 01/18/2024 Location: [facility] OR Name: Martha Benoit, : 1965, Diagnosis [...] Vagina (Active) [REMOVED] Non-Surgical Airway (Removed) Staff: Disc Pad Grinding Machine Feeder: Devora Pacheco RN Scrub Person: Karyn Sanon MA Patient Machine Made Shoe Unit Worker: Lauren Marquez Indications: Martha Benoit is an [...] retained. Chelsi Rivera MD / AM Confirmation: [id number] Dictation ID: [id number] cc: documented in this encounter Miscellaneous Notes * Brief Op Note - Thais Joseph - 01/18/2024 1128 EDT Date: 01/18/2024 Location: [facility] OR Name: Martha Benoit, : 1965, Diagnosis [...] Vagina (Active) [REMOVED] Non-Surgical Airway (Removed) Staff: Disc Pad Grinding Machine Feeder: Devora Pacheco RN Scrub Person: Karyn Sanon MA Patient Machine Made Shoe Unit Worker: Lauren Marquez Indications: Martha Benoit is an [...] 01/18/24 12:31 Obstetrics & Gynecology, PGY-2 Pager [phone] documented in this encounter Plan of Treatment Upcoming Encounters Date Type Department Care Team (Late st Contact Info) Description 02/05/2025 11:00 EDT Office Visit [facility] - Medical Office Building [address] [phone] Solange Garcia PA-C [address] [place] [address] Medical Office [facility], [address] [phone] Scheduled Referrals Name Type Priority Associated Diagnoses [...] 70 - 100 mg/dL 01/18/2024 10:17 EDT [facility] HN LAB POC COMMENT (GLUCOSE) Test Performed by Nursing Services 01/18/2024 10:17 EDT [facility] Blood CAPILLARY BLOOD / Unknown 01/18/2024 10:16 EDT 01/18/2024 10:17 EDT us Thais Navarro CRNA POINT OF CARE TEST ORDERABLE S Final Result [facility] [address] [place] [address] * (ABNORMAL) POCT GLUCOSE, INTERFACED (01/18/2024 8:25 EDT) Glucose, POC 126(H) 70 - 100 mg/dL 01/18/2024 8:26 EDT [facility] HN LAB POC COMMENT (GLUCOSE) Test Performed by Nursing Services 01/18/2024 8:26 EDT [facility] Blood CAPILLARY BLOOD / Unknown 01/18/2024 8:25 EDT 01/18/2024 8:26 EDT Chelsi Rivera MD POINT OF CARE TEST ORDER AMY Final Result [facility] [address] [place] [address] documented in this encounter Visit Diagnoses Diagnosis Cystocele, unspecified Rectocele documented in this encounter Administered Medications Inactive Administered Medications - up to 3 most recent administrations Medication Order MAR Action Action Date Dose Rate Site acetaminophen (TYLENOL) tablet 1,000 mg 1,000 mg, oral, PRN, 1 dose, Starting on Mon01/18/24 at 1400, Until Ava 01/18/24 at 1330, Fever, Routine, Recovery (only) acetaminophen (TYLENOL) tablet 500 mg 500 mg, oral, PRE-OP ONCE, 1 dose, On Mon01/18/24 at 0745, Routine, Preprocedure Given 01/18/2024 8:04 EDT 500 mg atropine 0.1 mg/mL syringe 0.5 mg 0.5 mg, intravenous, PRN, Starting on Mon01/18/24 at 0950, Until Ava 01/18/24 at 1330, Symptomatic HR < 50, Routine, Recovery (only) diphenhydrAMINE (BENADRYL) injection 12.5 mg 12.5 mg, intravenous, PRN, 1 dose, Starting on Mon01/18/24 at 0950, Until Ava 01/18/24 at 1330, nausea, Routine, Recovery (only) fentaNYL citrate (PF) injection 25-50 mcg 25-50 mcg, intravenous, EVERY 5 MIN PRN, 4 doses, Starting on Mon01/18/24 at 0950, Until Ava 01/18/24 at 1330, Pain, Routine, Recovery (only) Given 01/18/2024 10:28 EDT 50 mcg HYDROmorphone (DILAUDID) tablet 2-4 mg 2-4 mg, oral, EVERY 30 MINUTES PRN, 4 doses, Starting on Mon01/18/24 at 0950, Until Ava 01/18/24 at 1330, Pain, Mild Pain 1-3, Moderate Pain 4-6, Severe Pain 7-10, max 8mg, Routine, Recovery (only) HYDROmorphone (PF) (DILAUDID) 0.5 mg/0.5 mL syringe 0.5 mg 0.5 mg, intravenous, EVERY 15 MINUTES PRN, 4 doses, Starting on Mon01/18/24 at 0950, Until Ava [...] Recovery (only) 1015 (Canceled Entry - Provider: Clinton Job User Admin - Comment: Automatically canceled at discontinue of medication order) lactated ringers (LR) infusion at 25 mL/hr, intravenous, CONTINUOUS, Starting on Ava 01/18/24 at 0745, Until Ava 01/18/24 at 1330, Routine, Preprocedure 0830 (New Bag - Prov ider: Padma Castaneda RN)0837 (Continued by Anesthesia - Provider: Tahis Navarro CRNA)1015 (Anesthesia Volume Adjustment - Provider: [...] 01/18/2024 documented in this encounter Care Teams Mold Carpenter Relationship Specialty Start Date End Date Katia Haywood [address] [phone] PCP - General Family Medicine - Primary Care 06/20/23 documented as of this encounter
--- OUTSIDE RECORDS SUMMARY | 2024-09-18 16:02 | XMS_ITS | Encounter Summary ---
Author Organization [facility] Address [address] [place] [address] Care Team Providers Care Secretary Bookkeeper Name Role Phone Katia Haywood Primary Care Provider [phone] Reason for Visit * Reason Comments Post-OP [...] Info) Description 02/14/2024 10:15 EDT Post-op Visit [facility] - Medical Office [facility] [address] [place] [phone] Chula Whitley MD [address] [facility], [address] [place] [address] Rectocele (Primary Dx) Social History [...] psoriasis, no longer on humira, on percocet (10/325 6 times/day--prescribed by Arnold PCP) Doing well. No incontinence. 01/18/24 ant/post repair with Dr. Rivera Follows with Dr. Rivera and Rosaura (UDT) Pt is concerned this may be related to her worsening undiagnosed Neurologic disease. 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 Pt states she was exposed to toxic sprays when playing in the [employer] as a child. As a teen, she [...] Prior colonoscopy: about a year ago-- in [place]--had poor prep, one polyp found. Is planning [...] to do stairs reported 12/2023 Diabetes mellitus ([facility]) tx w/ insulin and oral meds last [...] Cancer Sister Diabetes Sister Heart Disease Sister [place] at age 42 = Diabetes Mother Diabetes [...] Info) Description 02/05/2025 11:00 EDT Office Visit [facility] - Medical Office Building [address] [phone] Solange Garcia PA-C [address] [place] [address] Medical Office [facility], [address] [phone] documented as of this encounter Visit Diagnoses Diagnosis Rectocele- Primary documented in this encounter Care Teams Secretary Bookkeeper Relationship Specialty Start Date End Date Katia Haywood [address] [place] [phone] PCP - General Family Medicine - Primary Care 06/20/23 documented as of this encounter
--- OUTSIDE RECORDS SUMMARY | 2024-09-18 16:02 | XMS_ITS | Referral Summary ---
Author Organization [facility] Address [address] [place] [address] Care Team Providers Care Fancy Sewer Name Role Phone Katia Haywood Primary Care Provider [phone] Encounters Date Type Department Care Team Description 09/09/2024 Telephone [facility] [address] [id number] Katy Lubin MD Results 08/29/2024 8:45 EST [facility] [address] [id number] Katy Lubin MD Mild dysplasia of cervix (AIDEN I) (Primary Dx) 07/26/[facility]24 [facility] [address] [phone] Jessica Murray NP Biopsy Results 07/18/2024 13:00 EDT Procedure visit [facility] [address] [phone] Jessica Murray NP Cervical 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 (Primary Dx) from Last 3 Months Allergies No known active allergies Medications metformin [...] Problem Noted Date Diagnosed Date Diabetes mellitus ([facility]) 08/11/2014 Vitamin D deficiency 01/28/2010 Morbid obesity ([facility]) 01/22/2010 Mild dysplasia of cervix (AIDEN [...] 08/2024 May need imiquimod if more VAIN Social History Tobacco Use Types Packs/Day Years [...] Index 27.98 01/18/2024 0748 EDT Functional Status * Because of a physical, mental, or emotional condition, does this person have difficulty doing errands alone such as visiting a doctor's office or shopping? Answer Date of Assessment Author No 03/11/2016 13:57 EDT Mental Status * Because of a physical, mental, or emotional condition, does this person have serious difficulty concentrating, remembering, or making decisions? Answer Entry Date Author No 03/11/2016 13:57 EDT Plan of Treatment Upcoming Encounters Date Type Department Care Team (Late st Contact Info) Description 02/05/2025 11:00 EDT Office Visit [facility] Surgery - Medical Office Building [facility] [address] [place] [address] Solange Garcia PA-C [address] Linnea Chauncey, Medical Office Building, [address] [place] [phone] Procedures Procedure Name Priority Date/Time Associated Diagnosis [...] explore management options, if applicable. 09/04/2024 10:57 [facility] Final Diagnosis A. CERVIX, ECTOCERVIX, LOOP ELECTROSURGICAL EXCISION PROCEDURE (LEEP): - Benign cervical tissue with squamous metaplasia, parakeratosis and prior biopsy site. - Negative for intraepithelial lesion or malignancy. B. CERVIX, ENDOCERVIX, LOOP ELECTROSURGICAL EXCISION PROCEDURE (LEEP): - Benign endocervical tissue. C. ENDOCERVIX, CURETTAGE: - Fragments of benign endocervix. 09/04/2024 10:57 [facility] Attestation There was significant resident/fellow involvement in the diagnostic evaluation of this case. By the signature below, the attending physician certifies that they have personally conducted a gross and/or microscopic examination of the described specimens and rendered or confirmed the above diagnosis. 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 Received [...] C1. BERE CARTER(ASCP) 08/30/2024 16:10 09/04/2024 10:57 [facility] Resident/Jaison w: Joann Sage MD 09/04/2024 10:57 [facility] Performing Lab [facility] 10:57 [facility] Scanned Images 09/04/2024 10:57 [facility] Tissue ENDOCERVICAL STRUCTURE / Unknown Collection, Other / Unknown 08/29/2024 11:43 EST 08/29/2024 14:26 EST Tissue specimen (specimen) CERVIX UTERI STRUCTURE / Unknown 08/29/2024 11:43 EST 08/29/2024 14:26 EST Tissue specimen (specimen) ENDOCERVICAL STRUCTURE / Unknown 08/29/2024 11:43 EST 08/29/2024 14:26 EST us Katy Lubin MD PATHOLOGY ORDERABLES Final Result [facility] [address] [place] [phone] * PAP TEST (07/18/2024 13:47 EDT) Specimens A. Cervix and/or Endocervix , ThinPrep Imaging System with Manual Evaluation 07/29/2024 15:36 [facility] Specimen Adequacy Satisfactory for Evaluation - transformation zone component present 07/29/2024 15:36 [facility] General Categorization Negative for intraepithelial lesion or malignancy 07/29/2024 15:36 [facility] Attestation By the signature below, the attending physician certifies that they have personally conducted a gross and/or microscopic examination of the described specimens and rendered or confirmed the above diagnosis. 07/29/2024 15:36 [facility] at 1535 Clinical History Long-term history NIL positive high-risk HPV; +18/45 genotype 07/29/2024 15:36 [facility] Performing Lab [facility] 07/29/2024 15:36 [facility] Scanned Images 07/29/2024 15:36 [facility] HPV High Risk type 16, PCR Negative 07/29/2024 15:36 [facility] HPV High Risk type 18, PCR Positive 07/29/2024 15:36 [facility] HPV Other High Risk Types, PCR Negative The following Other High Risk HPV types were not detected: 31,33, 35, 39, 45, 51, 52, 56, 58, 59, 66 and 68. 07/29/2024 15:36 EDT [facility] Pap Test CERVIX UTERI STRUCTURE / Unknown 07/18/2024 13:47 EDT 07/18/2024 14:44 EDT Jessica Murray NP PATHOLOGY ORDERABLES Final Res ult Performing Organization Address [facility] Co de Phone Number [facility] [address] [place] [phone] * (ABNORMAL) HPV DNA DETECTION WITH GENOTYPING, PCR (07/18/2024 13:47 EDT) HPV High Risk type 16, PCR Negative Negative 07/29/2024 15:36 EDT [facility] HPV High Risk type 18, PCR Positive(A) Negative 07/29/2024 15:36 EDT [facility] HPV other High Risk types, PCR Negative Negative 07/29/2024 15:36 EDT [facility] Comment: The following Other High Risk HPV types were not detected: ??31,33, 35, 39, 45, 51, 52, 56, 58, 59, 66 and 68. Pap Test CERVIX UTERI STRUCTURE / Unknown 07/18/2024 13:47 EDT 07/26/2024 14:16 EDT Jessica Murray NP MICROBIOLOGY - GENERAL ORDERAB LES Final Result Performing Organization Address [facility] de Phone Number [facility] [address] [place] [phone] * HEPATITIS C AB W REFLEX TO HCV RNA BY PCR (05/22/2018 12:02 EDT) Hep C Ab w Rfx PCR HCSCR2 Negative Negative 05/23/2018 21:57 EDT [facility] Comment: The results of this assay can be falsely lowered due to the consumption of Biotin. 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 Patient Care Teams Fancy Sewer Relationship Specialty Start Date End Date Katia Haywood: [phone] [place] [phone] PCP - General Family Medicine - Primary Care 06/20/23
--- OUTSIDE RECORDS SUMMARY | 2024-09-18 16:02 | XMS_ITS | Encounter Summary ---
Author Organization [facility] Address [address] [place] [address] Care Team Providers Care Wet Roller Name Role Phone Katia Haywood Primary Care Provider [phone] Reason for Visit * Reason Onset Date Comments Recurrent Urinary Tract Infection 06/05/2024 Encounter Details Date Type Department Care Team (Late st Contact Info) Description 06/05/2024 Telephone [facility] Pelvic Medicine and Reconstructive Surgery - Medical Office [facility] [address] [place] [address] Sofía Fernandez, RN [address] [place] [address] Recurrent Urinary Tract Infection Social History Tobacco Use Types Packs/Day Years [...] Telephone Encounter - Jazmyn Garrett RN - 07/03/2024 [address] Rivera. Made aware of the discussion. She agrees with the plan and scheduled appointments. JAZMYN GARRETT RN 07/03/2024 14:01 * Telephone Encounter - Jazmyn Garrett RN - 06/20/2024 0846 EDT Phone call to the patient - Per the patient she went submit a urine at [facility] on Monday. She was seen by her PCP yesterday and they prescribed another abx. Cefpodoxime 200 mg BID for 10 days. She also has a yeast infection and she was treated with Fluconazole and encouraged to do Monostat. I discussedwith the patient, DC's request for future cath spec UA's for urinary symptoms. Long discussion with the patient as she requested a f/u with DC as soon as possible for a suture check as the patient would like feedback from Dr. Rivera regarding if her sutures will just not heal. She states that her son had complications with his bodies ability to absorb sutures and she would like to know if she will have the same concerns. Additionally, she worries that her sutures are the reason for the recurrent UTI's and yeast infections. I explained that I could schedule her for a f/uwith one of our PA's to look at the incision and be sure that everything looks like it is healing well, however, she is too close to her surgery date to advise on whether the sutures will or will not absorb. I explained that the sutures can take 6-9+ months for the body to absorb them, so it is toosoon to advise on that. I also explained that this duration depends on the patient's body, and her son's history would not indicate her risks for poor healing. She expressed concern with seeing a PA that will be checking the work that they did not do (post-opassessments). She questioned the qualifications of Physician Assistants. I provided reassurance that the PA's are qualified to complete the post-operative follow up exams, as the organization would not allow them to see patients if they were unqualified to do so. Patient has an appt with Jessica Murray in June, I advised that Jessica may also be able to advise on the incision and sutures. However, I scheduled an appt with TG on a day that Dr. Rivera isalso here in clinic. Patient was appreciative of the discussion and agrees with the plan. I spent a total of 18 minutes on the phone with this patient. JAZMYN GARRETT RN 06/20/2024 9:16 * Telephone Encounter - Sofía Fernandez RN - 06/12/2024 1997 EDT Further discussed with Dr. Rivera who advises VINCENT 2-3 days after finishing abx and to confirm with pt that she is using vaginal estrogen. Per MD, if pt is using vaginal estrogen and continues to have UTIs, we will need to start getting cath specimens. Pt is at high risk for E. Coli due to bowel problems. TC to pt. Pt is using vaginal estrogen, reminded pt she should use this twice a week, she confirmed. Pt reports she went to PCP today. She discussed with them a test of cure and they will order this.Pt plans to submit a sample Monday afternoon or Monday morning. Advised pt to be sure sample is submitted at least 48 hours after she finishes abx. Pt verbalized understanding. Advised pt that if UTIs recur, Dr. Rivera advises getting catheter specimens due to pt bowel history. Pt will call our office once she submits sample for VINCENT. The patient indicates understanding of these issues and agrees with the plan. * Telephone Encounter - Sofía Fernandez RN - 06/11/2024 1351 EDT TC to pt. Advised pt Dr. Rivera would like to know what her bowels are like. Pt reports she does not have fecal incontinence- if anything its opposite. Pt was prescribed Macrobid for 7 days. Started 06/07. She is feeling ok, thinks she may have a yeast infection. She has medication at home for a yeast infection. Pt reports she still feels stitches near the opening of her vagina. Not causing pain. Advised pt the stitches can take several months to dissolve, and will run this by Dr. Rivera. Advised pt the above will be discussed with Dr. Rivera to see what MD recommends. Does MD recommend VINCENT to be sure infection is cleared? The patient indicates understanding of these issues and agrees with the plan. * Telephone Encounter - Solange Ye RN - 06/10/2024 1654 EDT Pt with E. Coli infections, h/o fecal incontinence. Per review with Dr. Rivera she recommends that triage contact pt to assess bowel function and then may need to go back to Dr. Whitley for further eval. * Telephone Encounter - Sofía Fernandez RN - 06/07/2024 1624 EDT Some records received and scanned into chart. * Telephone Encounter - Sofía Fernandez RN - 06/07/2024 1354 EDT Review of chart. Ucx results from 06/05/24 are in scans through care everywhere. Medications from outside sources indicates pt was prescribed Macrobid x 5 days. Will review with Dr. Rivera. * Telephone Encounter - Sofía Fernandez RN - 06/05/2024 1525 EDT Pt LM that she had surgery with Dr. Rivera and has been having an ongoing UTI of E.Coli since. Pt would like to discuss this further and get Dr. Rivera's recommendations. TC to pt. Pt reports UTI started about a month after surgery. Having trouble getting rid of it. Have done cultures and it keeps coming back as E. Coli. Was first treated with Bactrim (3 days). Pt is a diabetic and feels the course was not long enough. 2-3 days after abx pt had symptoms back and was prescribed an abx (cephalexin) for 5 days- pt continued to have symptoms while taking the abx. Pt was then prescribed a 3rd abx which was helpful and pt felt well. Symptoms resolved while pt wason this med. 2-3 days later, symptoms recurred. Pt submitted another urine sample yesterday. Symptoms- dysuria at the end of urination, frequency, heaviness, urgency. Advised pt her PCP office will be contacted and asked to send Ucx results and OV notes to our office for review. Once we received the records, we will review them with Dr. Rivera to see what MD recommends. TC to pt's PCP. They will fax urine test results and OV notes. documented in this encounter Plan of Treatment Upcoming Encounters Date Type Department Care Team (Late st Contact Info) Description 02/05/2025 11:00 EDT Office Visit [facility] Pelvic Medicine and Reconstructive Surgery - Medical Office Building [address] [phone] Solange Garcia PA-C 2 [facility] Medical Office [facility], [address] [phone] documented as of this encounter Visit Diagnoses Not on filedocumented in this encounter Care Teams Wet Roller Relationship Specialty Start Date End Date RukhsanaKatia [address] [place] [id number] PCP - General Family Medicine - Primary Care 06/20/23 documented as of this encounter
--- OUTSIDE RECORDS SUMMARY | 2024-09-18 16:02 | XMS_ITS | Continuity of Care Document ---
Author Organization [facility], [facility] Address [address] [place] [address] Assessment Encounter Date Assessment Date Assessment LastModified by Organization Details LastModified Time 06/28/2024 06/28/2024 Patient consented for telehealth visit today. The total time devoted to today's encounter, including both the asqt-vh-sana time with the patient and/or family/caregi stephen and zyt-qkte-yn-f stanley time I personally spent is 20 minutes in visit, 5 minutes prep, 5 minutes charting; total 30 minutes. [email or web address] Not available 06/28/2024 08:53:39 Plan of Treatment Reminders Order Date Submit Date Provider Last Modified By Organization Details Last Modified Time Details Appointments 12 week FU ([facility]) 2023 02:00P M ERIC PATRICIA Not available Not available Not available Telehealt h 30 2024 11:00A M ERIC PATRICIA Not available Not available Not available Lab None recorded. Referral None recorded. Procedures None recorded. Surgeries None recorded. Imaging None recorded. Medication Orders oxycodone -acetamin ophen 10 mg-325 mg tablet 2023 024 [facility], [address], [place], [address], 06/28/2024 09:01:52 oxycodone -acetamin ophen 10 mg-325 mg tablet 2023 024 [facility], [address], [place], [address], 06/28/2024 09:01:56 oxycodone -acetamin ophen 10 mg-325 mg tablet [id number] 024 [facility], [address], [place], [address], 06/28/2024 09:01:52 Patient TargetsNo targets recorded. Patient InstructionsNo instructions recorded. Reason for Referral None Reported. Results Created Date Observation Date Name Description Value Unit Range Abnormal Flag Note LastModifiedBy Organization Detail LastModifiedTime 07/08/20 24 05/07/2020 , abdom en No observ ation record ed. [...] Organization Details Recorded Time Atrophic vaginiti s 82132975 Active 2023 ERIC GOMEZ, [address], [place], [address] , [place] - [facility] 4 14:39:42 Amnesia 49321265 Active Efren pichardo, [place] - [facility] 4 18:56:28 Gastroes ophageal reflux disease without esophagi tis 762286529 [facility] 4 19:[facility] Senile hyperker atosis 112378690 Completed 12/27/2023 Problem Code: L82.1; Problem Code Type: ICD-10; Efren Orozco [facility] 4 19:08:33 Hypothyr oidism 12453915 [facility] [place] [facility] 4 19:05:19 Renal disorder due to type 2 diabetes mellitus 920897351 Active [facility] 4 19:09:47 Other idiopath ic peripher al neuropat hy NOS Active Not Available [facility] 3 04:42:37 Obesity 429760859 [facility] [place] [facility] 4 19:06:06 Vitamin D deficien cy 89511681 [facility] [place] [facility] 4 19:07:32 History of urinary stone 250723793 Active [facility] 4 19:02:58 Chronic pain 68077419 Active [facility] 4 18:59:02 Retinopa thy due to type 2 diabetes mellitus 700866570 Completed 12/27/2023 Problem Code: E11.319; Problem Code Type: ICD-10; [facility] 4 19:09:39 Elevated blood-pr essure reading without diagnosi s of hyperten ml 109125351 Active 2017 [place] [facility] 4 19:00:20 Counseli ng Completed 201702/26/2018 Problem Code: Z71.89; Problem Code Type: ICD-10; Not Available [facility] 3 04:42:38 Blood chemistr y outside referenc e range 070993589 Completed 201512/27/2023 Problem Code: R79.89; Problem Code Type: ICD-10; [facility] 4 18:57:49 Psoriasi s 0318440 Active 2017 [facility] 4 19:07:20 History of bariatri c surgical procedur e 390547962 Active [facility] 4 19:02:28 History of gynecolo gical disorder 684787648 Active [facility] 4 19:02:48 History of transien t ischemic attack 006151331 Active [facility] 4 19:03:02 Dysplasi a of vagina 1738162 Active [facility] 4 19:00:12 Cervical intraepi thelial neoplasi a grade 1 108961368 Completed 12/27/2023 Problem Code: N87.0; Problem Code Type: ICD-10; [facility] 4 18:58:51 Pain in lower limb 52859913 Active 2017 [facility] 4 19:07:05 Long-ter m current use of drug therapy 546941665 Active 2017 [facility] 4 19:05:24 Acute stress disorder 91254381 Completed 201702/19/2019 Problem Code: F43.0; Problem Code Type: ICD-10; Not Available [facility] 3 04:42:40 Chronic ulcer of foot 492560214 Completed 201701/17/2019 11/17/19 19 - Comments only - Ruth argueta APRN, PRODUCT MARKETING ANALYST-GIANNI - Sadia boykin Continue s to follow with podiatry . Problem Code: L97.529; Problem Code Type: ICD-10; Not Available [facility] 3 04:42:40 Swelling 25738492 Active 2018 Efren pichardo, [facility], [facility]. 4 19:07:48 Candidia sis 64007282 Active 2018 under [facility] 4 18:58:12 Foot ulcer due to type 2 diabetes mellitus 74729419805 00 Active 2018 Efren rOozco [facility], [facility], [facility] 4 19:01:31 Family disrupti on 54817251 Active 2018 Efren Orozco [facility] 4 19:00:34 Otalgia of left ear 6481701294 Active 2019 [place] Ernesto [facility] 4 19:06:35 Disorder of ear 27974958 Completed 201907/10/2020 Problem Code: H93.8x9; Problem Code Type: ICD-10; Not Available [facility] 3 04:42:41 Disorder of sacrum 18883537 Completed 202002/13/2021 Not Available [facility] 3 04:42:41 Cellulit is of finger 78529114 Completed 202003/07/2021 02/06/20 21 - Comments only - Ruth argueta LATHE TENDER, PRODUCT MARKETING ANALYST-BC - L 3rd finger Advised soaking 5x [...] L03.019; Problem Code Type: ICD-10; Not Available [facility] 3 04:42:41 Genitour inary symptoms 091165847 Completed 202003/07/2021 Problem Code: R39.9; Problem Code Type: ICD-10; Not Available [facility] 3 04:42:41 Myoneura l disorder 551406600 Active 2020 [facility] 4 19:05:56 Anorecta l disorder 613274606 Completed 202005/07/2021 Problem Code: K62.89; Problem Code Type: ICD-10; Not Available [facility] 3 04:42:42 Family history of malignan t neoplasm of digestiv e organ 653222340 Completed 202012/27/2023 Problem Code: Z80.0; Problem Code Type: ICD-10; [facility] 19:01:22 Disorder of skin and/or subcutan eous tissue 38340917 Completed 202006/17/2021 Problem Code: L98.9; Problem Code Type: ICD-10; Not Available [facility] 3 04:42:42 Digestiv e system finding 861241354 Completed 202012/27/2023 Problem Code: R19.8; Problem Code Type: ICD-10; [facility] 18:59:58 History of polyp of colon 815985787 Completed 201712/27/2023 Problem Code: Z86.010; Problem Code Type: ICD-10; [facility] 4 19:04:48 Genitour inary symptoms 182990399 Completed 202103/09/2022 Problem Code: R39.9; Problem Code Type: ICD-10; Not Available [facility] 3 04:42:43 Acute pharyngi tis 628474264 Completed 202104/08/2022 Problem Code: J02.9; Problem Code Type: ICD-10; Not Available [facility] 3 04:42:43 Streptoc occal sore throat 35571944 Completed 202104/09/2022 Problem Code: J02.0; Problem Code Type: ICD-10; Not Available [facility] 3 04:42:43 Vaccine declined by patient 66030900799 2 Active 2021 Efren Orozco [facility]. 4 19:07:41 Pain of left knee joint 84809302456 4107 Active 2022 Efren Orozco [facility] 4 19:07:11 Pain of right knee joint 52602506509 4100 Completed 202202/17/2023 Problem Code: M25.561; Problem Code Type: ICD-10; Not Available [facility] 3 04:42:43 Proteinu oz 63330167 Completed 202212/27/2023 Problem Code: R80.9; Problem Code Type: ICD-10; Efren Orozco [facility], [facility] 4 19:10:36 Candidia sis of vagina 37576388 Completed 201904/06/2023 Problem Code: B37.3; Problem Code Type: ICD-10; ERIC GOMEZ, PRODUCT MARKETING ANALYST [address], [place], [address] , [facility]. 4 13:27:50 Pain in finger of left hand 83866656563 9105 Completed 202101/04/2023 Problem Code: M79.645; Problem Code Type: ICD-10; Not Available [facility] 04:42:44 Counseli jhonny Completed 201711/17/2018 Problem Code: Z71.89; Problem Code Type: ICD-10; Not Available [facility] 3 04:42:44 Acute non-infe ctive otitis externa 530986295 Completed 201702/19/2019 Problem Code: H60.502; Problem Code Type: ICD-10; Not Available [facility] 3 04:42:44 Chronic sinusiti s 90364414 Completed 202204/06/2023 Problem Code: J32.9; Problem Code Type: ICD-10; Not Available [facility] 3 04:42:45 Polyneur opathy 70762739 Completed 201711/17/2018 Problem Code: G62.9; Problem Code Type: ICD-10; Not Available [facility] 3 04:42:45 Acute conjunct ivitis 41770331 Completed 202204/06/2023 Problem Code: H10.30; Problem Code Type: ICD-10; Not Available [facility] 3 04:42:45 of relative Active 2022 [facility] 4 18:59:10 Diabetes mellitus 88059816 Active 2023 [place] [facility] 4 18:59:17 Ankle edema 77985946 Active 2023 [facility] 4 18:56:40 Parathyr oid hormone measurem ent 5196346 Active 2015 Efrenalisha Orozco [facility]. 4 18:57:42 Dysplasi a of cervix 59766813 Active [place] [facility] 4 18:58:46 Abdomina l pain 67701140 Active 2020 [facility] 4 18:59:54 Family history of cancer of colon 157458926 Active 2020 [facility] 4 19:01:18 Adenomat ous polyp of colon 028139094 Active 2017 Tubular adenoma 2018. Poor prep 08/06/21 ; Cologuar d neg 01/09/22. 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 058332799 Active 2023 JOAN CARLSON MA null, [facility] 4 13:22:07 Neuropat hy due to diabetes mellitus 427166288 Active 2023 JOAN CARLSON MA null, [facility] 4 13:22:22 Acute urinary tract infectio n 444497844 Active [address], [place], [address] , [facility] 4 13:23:31 Dysuria 09721557 Active [address], [place], [address] , [facility] 4 13:30:02 Dyslipid emia 525484302 Active 2023 JOAN CARLSON MA null, [facility] 4 10:57:35 Urogenit al finding 199370109 Active [address], [address] 4 10:44:09 Urinary symptoms 537419993 Active [address], [address] 4 10:46:01 Candidia sis of vagina 99499570 Active 2023 Problem Code: B37.3; Problem Code Type: ICD-10; SHIRA PACHECO Dr, [address] 4 13:27:49 Bacteria l vaginosi s 059312891 Active [address], [address] 4 13:28:47 Chronic urinary tract infectio n 038168775 Active [address], [address] 4 09:00:13 Problem Notes None recorded. Medical Equipment None [...] Not Available Not Available Bella miranda Complete (iron) chewable tablet Take 2 tablet [...] x 3 months, then Qweek 07/27 completed [facility] Not Available Not Available Not [...] active Pt states every other day, per [place] doctor Not Available Not Available Not Available [...] Not Available Not Available Not Available Vitals None Recorded Social History Question Answer Notes LastModified by Organizat ion Details LastModified Time Tobacco Smoking Status Never Smoker Margi Og RN [facility], [place] - [facility] 09/21/2023 10:52:50 What Was The Date Of Your Most Recent Tobacco Screening? 09/18/2024 [email or web address] Information not available 09/18/2024 Has Tobacco Cessation Counseling Been Provided? No [email or web address] Information not available 12/29/2023 Do You Or Have You Ever Used Any Other Forms Of Tobacco Or Nicotine? No Information not available 12/29/2023 Sex: Female Functional [...] pneumococcal polysaccharide PPV23 09/10/2014 completed Not Available [facility] 06:13:57 Past Encounters Encounter ID Performer Location Encounter Start Date Encounter Closed Date Diagnosis/Indication Diagnosis SNOMED-CT Code Diagnosis ICD10 Code [id number] RUBINA MOJICA RN [address] [address] 06/12/2024 10:28:46 06/12/2024 11:23:06 Urinary symptoms 408471291 R39.9 Candidiasis of vagina 72 456247 B37.31 Bacterial vaginosis 4197 54010 N76.0 [id number] SHIRA MANNING [address] [address] 06/18/2024 15:35:22 06/18/2024 16:20:44 Acute urinary tract infection 345915124 N39.0 Vaginitis 28814317 N76.0 [id number] SHIRA PACHECO [facility] [address] [place] [address] 06/28/2024 08:11:26 06/28/2024 11:56:07 Chronic pain 38242567 G89.29 Chronic ur inary tract infection 726696002 N39.0 Health Concerns Section Related Observation LastModified by Organization Detai ls LastModified Time None Recorded Concern Status LastModified by Organization Details LastModified Time None Recorded Payers Encounter Date Sequence Insurance Name Policy Number Policy Lema Covered Member ID Lema Member ID Guarantor Name 06/28/2024 1 [facility] (MEDICAID) [place] [id number] Martha Benoit Notes Date Note Type Note Provider Name and Address Organization Details Recorded Time 06/28/2024 text/html A 58-year-old female patient presents for a telehealth visit to [...] who had recently received the flu vaccine. SHIRA PACHECO [address], [place], [address], [place] - [facility]. 06/28/2024 09:02:30 OBGyn Episode No OBEpisode recorded.
--- OUTSIDE RECORDS SUMMARY | 2024-09-18 16:02 | XMS_ITS | Encounter Summary ---
Author Organization [facility] Address [address] [place] [address] Care Team Providers Care Mercerizing Range Controller Name Role Phone Katia Haywood Primary Care Provider [phone] Reason for Visit * Reason Comments Procedure Encounter Details Date Type Department Care Team (Late st Contact Info) Description 07/18/2024 13:00 EDT Procedure visit [facility] OBGYN Services - [facility] [address], [place] [address] Jessica Murray NP [address] [facility], [address] [place] [address] Cervical high risk human papillomavirus [...] Sign Reading Time Taken Comments Blood Pressure 130/68 07/18/2024 1305 EDT Pulse - - Temperature - - Respiratory Rate - - Oxygen Saturation - - Inhaled Oxygen Concentration - - Weight - - Height - - Body Mass Index - - documented in this encounter Functional Status * [...] this encounter Progress Notes * Jessica Murray NP - 07/18/2024 1300 EDT Images from the original note were not included. COLPOSCOPY PROCEDURE NOTE Martha Benoit is a 58 y.o. female who presents for colposcopy 06/2009, LEEP - AIDEN I - [...] out colpo - also declines vag E2) History Age: 58 y.o. LMP: No LMP recorded. (Menstrual status: Other). Indication: Normal, High-risk HPV Positive, and +18/45. Previous abnormal screening results : Yes Previous abnormal colpo: AIDEN 1 Previous treatment: LEEP Received HPV vaccine?: No Current contraception: postmenopausal History of other NAIL FEEDER infections: none known Chronic use of immunosuppressive medications: Yes Current anticoagulation therapy: No Tobacco use: reports that she has never smoked. She has never been exposed to tobacco smoke. She has never used smokeless tobacco. Allergic to latex: No Allergic to Iodine or Betadine: No Lab A test is not indicated as the patient is postmenopausal Pre-Procedure The nature and meaning of screening results (pap tests, HPV) or referred diagnosis were discussed. HPV infection discussed. Cervical dysplasia and its significance and natural history discussed. Colposcopy procedure explained. Side effects, risks and complications discussed (including risk of bleeding, infection, non-diagnostic colposcopy result). Written informed consent obtained. Procedure Note BP 130/68 The exam was chaperoned by Abril Manriquez MA The vulva, vagina, and perianal area were examined with the following findings: no gross abnormalities . Vaginal inspection: patchy Lugols neg areas extending onto vagina. Vulvar inspection: no visible lesions Speculum placed in the vagina and visualization of cervix achieved. Vagina and cervix soaked with acetic acid solution. Cervix and vagina painted with Lugol's solution. The following findings were noted: Cervix: flush with vagina, h/o LEEP Squamocolumnar junction: not fully visualized Acetowhite changes: No Lesion(s) present (acetowhite or other): Yes Lesion description: 1. Lesion: 2 o'clock, Lesion fully visualized: Yes, Lesion at the SCJ: No, and specific features include: Irregular/geographic border and Flat Hemostasis:Monsel's solution Procedure performed by: Jessica Murray NP Impression: Low grade; possible canal disease Specimens: Cervix: 2 o'clock ECC: Curettage and Roby Right posterior Vaginal wall Thin prep pap and HR HPV done Final Diagnosis A. ENDOCERVIX, CURETTAGE: - Low-grade squamous intra-epithelial lesion (AIDEN 1). See comment. B. CERVIX, 2 O'CLOCK, BIOPSY: - At least squamous intra-epithelial lesion, cannot exclude high-grade. See comment. C. VAGINA, RIGHT, POSTERIOR UNDER CERVIX, BIOPSY: - Atypical squamous mucosa, cannot exclude low-grade squamous intra-epithelial lesion. Diagnosis Comment In part B, the lesion is nearly absent on deepest levels. Immunoperoxidase stains were performed on this case to further characterize the lesion. ANTIBODY(CLONE)(BLOCK):RESULT P16 (E6H4TM, [place]) (A1): Negative Plan Results will be communicated with the patient by phone Discussed the importance of appropriate follow-up, post-procedural written instructions provided Diagnosis added to problem list, medical history, surgical history as indicated Given [facility] shitake mushroom [facility]. Jessica Murray NP Spoke with patient on phone regarding recent biopsies with likely high grade precancer on cervix. Discussed with Dr. Lubin, needs LEEP with her. Strongly encouraged pt to use her topical estrogen cream to prep. Start now, 1 gm twice weekly and stop 3 days prior to procedure. Pt wondered about the [facility] supplement. Discussed she can consider after LEEP if paps HPV + but won't help her current high grade precancer and needs the LEEP. Transferred to phone room to schedule the LEEP. Scheduled 08/29/24 with Amee. Jessica Murray NP CC: Katy Lubin MD documented in this encounter Plan of Treatment Upcoming Encounters Date Type Department Care Team (Late st Contact Info) Description 02/05/2025 11:00 EDT Office Visit [facility] Pelvic Medicine and Reconstructive Surgery - Medical Office Building [facility] [address] [place] [address] Solange Garcia PA-C [address] [place] [address] Medical Office [facility], [address] [phone] documented as of this encounter Procedures Procedure Name Priority Date/Time Associated Diagnosis Comments PAP TEST Routine 07/18/2024 13:47 EDT Cervical 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 SURGICAL PATHOLOGY Routine 07/18/2024 13 :47 EDT Cervical 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 HPV DNA DETECTION WITH GENOTYPING, PCR Today 07/18/2024 13:47 EDT Cervical 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 documented in this encounter Results * (ABNORMAL) HPV DNA DETECTION WITH GENOTYPING, PCR (07/18/2024 13:47 EDT) HPV High Risk type 16, PCR Negative Negative 07/29/2024 15:36 EDT [facility] HPV High Risk type 18, PCR Positive(A) Negative 07/29/2024 15:36 EDT [facility] HPV other High Risk types, PCR Negative Negative 07/29/2024 15:36 EDT [facility] Comment: The following Other High Risk HPV types were not detected: ??31,33, 35, 39, 45, 51, 52, 56, 58, 59, 66 and 68. Pap Test CERVIX UTERI STRUCTURE / Unknown 07/18/2024 13:47 EDT 07/26/2024 14:16 EDT Jessica Murray NP MICROBIOLOGY - GENERAL ORDERAB LES Final Result [facility] [address] [place] [id number] * SURGICAL PATHOLOGY (07/18/2024 13:47 EDT) Note to Patient The following pathology results have been interpreted by your pathologist and may be available to you before your health provider has had the opportunity to review them. Please allow time for your provider to receive these results and explore management options, if applicable. 07/23/2024 9:15 EDT [facility] Final Diagnosis A. ENDOCERVIX, CURETTAGE: - Low-grade squamous intra-epithelial lesion (AIDEN 1). See comment. B. CERVIX, 2 O'CLOCK, BIOPSY: - At least squamous intra-epithelial lesion, cannot exclude high-grade. See comment. C. VAGINA, RIGHT, POSTERIOR UNDER CERVIX, BIOPSY: - Atypical squamous mucosa, cannot exclude low-grade squamous intra-epithelial lesion. 07/23/2024 9:15 [facility] Diagnosis Comment In part B, the lesion is nearly absent on deepest levels. Immunoperoxidase stains were performed on this case to further characterize the lesion. ANTIBODY(CLONE)(BL OCK):RESULT P16 (E6H4TM, [place]) (A1): Negative NOTE: One or more of the reagents [...] performance characteristics have been determined by [facility] and/or by the referring laboratory. The [...] to perform high complexity clinical laboratory testing. 07/23/2024 9:15 [facility] Attestation There was significant resident/fellow involvement in the diagnostic evaluation of this case. By the signature below, the attending physician certifies that they have personally conducted a gross and/or microscopic examination of the described specimens and rendered or confirmed the above diagnosis. 07/23/2024 9:15 [facility] at 0915 Clinical History Long-term history NIL positive high-risk HPV; +18/45 genotype; clinical diagnosis code: R87.810 07/23/2024 9:15 [facility] Gross Description A. Received in formalin labelled with proper patient identification (initials P, J) and ECC is an aggregate of blood-tinged mucus, 0.8 x 0.6 x 0.1 cm. Entirely submitted in A1. B. Received in formalin labelled with proper patient identification (initials P, J) and 2:00 is a pale russell tissue, 0.2 by less than 0.1 by less than 0.1 cm. Entirely submitted in B1. C. Received in formalin labelled with proper patient identification (initials P, J) and right posterior under cervix is a pale brown to jones tissue, 0.2 x 0.2 x 0.1 cm. Entirely submitted in C1. BERE ELIZABETH(ASCP) 07/18/2024 16:41 07/23/2024 9:15 EDT [facility] Resident/Jaison w: Bonnie Davis MD 07/23/2024 9:15 EDT [facility] Performing Lab [facility] 9:15 EDT [facility] Scanned Images 07/23/2024 9:15 EDT [facility] Tissue VAGINAL STRUCTURE / Unknown Collection, Other / Unknown 07/18/2024 13:47 EDT 07/18/2024 15:13 EDT Tissue specimen (specimen) CERVIX UTERI STRUCTURE / Unknown 07/18/2024 13:47 EDT 07/18/2024 15:13 EDT Tissue specimen (specimen) VAGINAL STRUCTURE / Unknown 07/18/2024 13:47 EDT 07/18/2024 15:13 EDT Jessica Murray NP PATHOLOGY ORDERABLES Final Res ult [facility] [address] [place], [place] [id number] * PAP TEST (07/18/2024 13:47 EDT) Specimens A. Cervix and/or Endocervix , ThinPrep Imaging System with Manual Evaluation 07/29/2024 15:36 EDT [facility] Specimen Adequacy Satisfactory for Evaluation - transformation zone component present 07/29/2024 15:36 EDT [facility] General Categorization Negative for intraepithelial lesion or malignancy 07/29/2024 15:36 T [facility] Attestation By the signature below, the attending physician certifies that they have personally conducted a gross and/or microscopic examination of the described specimens and rendered or confirmed the above diagnosis. 07/29/2024 15:36 T [facility] at 1535 Clinical History Long-term history NIL positive high-risk HPV; +18/45 genotype 07/29/2024 15:36 T [facility] Performing Lab [facility] 07/29/2024 15:36 [facility] Scanned Images 07/29/2024 15:36 [facility] HPV High Risk type 16, PCR Negative 07/29/2024 15:36 [facility] HPV High Risk type 18, PCR Positive 07/29/2024 15:36 [facility] HPV Other High Risk Types, PCR Negative The following Other High Risk HPV types were not detected: 31,33, 35, 39, 45, 51, 52, 56, 58, 59, 66 and 68. 07/29/2024 15:36 [facility] Pap Test CERVIX UTERI STRUCTURE / Unknown 07/18/2024 13:47 EDT 07/18/2024 14:44 EDT Jessica Murray TUBE BENDING MACHINE OPERATOR PATHOLOGY ORDERABLES Final Res ult [facility] [address] [place] [address] documented in this encounter Visit Diagnoses Diagnosis Cervical 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- Primary documented in this encounter Care Teams Mercerizing Range Controller Relationship Specialty Start Date End Date Katia Haywood [address] [place] [phone] PCP - General Family Medicine - Primary Care 06/20/23 documented as of this encounter
--- OUTSIDE RECORDS SUMMARY | 2024-09-18 16:02 | XMS_ITS | Encounter Summary ---
Author Organization [facility] Address [address] [place] [address] Care Team Providers Care Reproducer Name Role Phone Katia Haywood Primary Care Provider [phone] Reason for Visit * Reason Onset Date Comments Results 09/09/2024 Encounter Details Date Type Department Care Team (Late st Contact Info) Description 09/09/2024 Telephone [facility] OBGYN Services - [address] [phone] Katy Lubin MD [address] [facility], [address] [place] [address] Results Social History Tobacco Use [...] Telephone Encounter - Katy Lubin MD - 09/09/2024 1726 EST Patient called with results and recommendations. Told findings negative and can get pap and HPV in one year. Offered for her to wait in [facility] unitl after f/u but she wants to start now which is reasonable. Final Diagnosis A. CERVIX, ECTOCERVIX, LOOP ELECTROSURGICAL EXCISION PROCEDURE (LEEP): - Benign cervical tissue with squamous metaplasia, parakeratosis and prior biopsy site. - Negative for intraepithelial lesion or malignancy. B. CERVIX, ENDOCERVIX, LOOP ELECTROSURGICAL EXCISION PROCEDURE (LEEP): - Benign endocervical tissue. C. ENDOCERVIX, CURETTAGE: - Fragments of benign endocervix. documented in this encounter Plan of Treatment Upcoming Encounters Date Type Department Care Team (Late st Contact Info) Description 02/05/2025 11:00 EDT Office Visit [facility] Pelvic Medicine and Reconstructive Surgery - Medical Office [address] [phone] Solange Garcia PA-C [address] [place] [address] Medical Office [facility], [address] [phone] documented as of this encounter Visit Diagnoses Not on filedocumented in this encounter Care Teams Reproducer Relationship Specialty Start Date End Date Katia Haywood [address] [place] [phone] PCP - General Family Medicine - Primary Care 06/20/23 documented as of this encounter
--- OUTSIDE RECORDS SUMMARY | 2024-09-18 16:02 | XMS_ITS | Encounter Summary ---
Author Organization [facility] Address [address] [place] [address] Care Team Providers Care Bleacher Lard Name Role Phone Katia Haywood Primary Care Provider [phone] Reason for Visit * Reason Comments Post-OP [...] Info) Description 02/14/2024 10:15 EDT Post-op Visit [facility] Pelvic Medicine and Reconstructive Surgery - Medical Office Building [address] [address] Chelsi Rivera MD [address] [place] [address] Medical Office [facility], [address] [phone] Other female genital prolapse (Primary [...] Info) Description 02/05/2025 11:00 EDT Office Visit [facility] Pelvic Medicine and Reconstructive Surgery - Medical Office [facility] [address] [place] [phone] Solange Garcia PA-C [address] [facility] Medical Office [facility], [address] [phone] documented as of this encounter Visit Diagnoses Diagnosis Other female genital prolapse- Primary documented in this encounter Care Teams Bleacher Lard Relationship Specialty Start Date End Date Katia Haywood [address] [place] [phone] PCP - General Family Medicine - Primary Care 06/20/23 documented as of this encounter
--- OUTSIDE RECORDS SUMMARY | 2024-09-18 16:02 | XMS_ITS | Encounter Summary ---
Author Organization [facility] Address [address] [place] [address] Care Team Providers Care Flatwork Finisher Name Role Phone Katia Haywood Primary Care Provider [phone] Reason for Visit * Auth/Cert (Routine) Specialty Diagnoses / Procedures Referred By Contpaige t Referred To Contact Diagnoses Cystocele, unspecified Rectocele Procedures AL ANTERIOR COLPORRAPHY RPR CYSTOCELE W/CYSTO AL POST COLPORRHAPHY RECTOCELE W/WO PERINEORRHAPHY anterior colporrhaphy, cystoscopy posterior colporrhaphy Referral ID Status Reason Start Date Expiration Date Visits Re quested Visits Authorized [id number] 1 1 Encounter Details Date Type Department Care Team (Late st Contact Info) Description 01/18/2024 8:37 EDT Anesthesia Event [facility] OR [address] [place], [place] [phone] Gelacio Cespedes MD [address] [place] [phone] Thais Navarro CRNA [address] [facility] [address] [place] [address] Anesthesia Record Procedure Summary Procedure [...] posterior repairs; N 01/18/24 0939 by Devora Espiita, RN Peripheral IV 01/18/24; 0829; 02/13; 20; [...] 03/11/2016 13:57 EDT documented in this encounter OR Notes * Anesthesia Postprocedure Evaluation - Thais Navarro CRNA - 01/18/2024 1015 EDT Patient: Martha Benoit Vital signs were reviewed with the recovery nurse. Complete vitals history is available in the [employer] healthsheets. Vitals Value Taken Time BP 128/59 01/18/24 [...] and Staff Patient location during procedure: OR Resident/DIVISION HEAD: Thais Navarro CRNA Performed: resident/DIVISION HEAD/AA Performed by: Thais Navarro CRNA Authorized by: [...] to do stairs reported 12/2023 Diabetes mellitus ([facility]) tx w/ insulin and oral meds last [...] Info) Description 02/05/2025 11:00 EDT Office Visit [facility] Pelvic Medicine and Reconstructive Surgery - Medical Office Building [address] [address] Solange Garcia PA-C [address] [place] [address] Medical Office Building, [address] [phone] documented as of this encounter Procedures Procedure Name Priority Date/Time Associated Diagnosis Comments ANESTHESIA INTUBATION Routine 01/18/2024 8:47 EDT documented in this encounter Results * AL AN ELECTIVE ENDOTRACHEAL AIRWAY (01/18/2024 8:47 EDT) Narrative Thais Navarro CRNA - 01/18/2024 8:47 EDT Thais Navarro CRNA ? 01/18/2024 ??8:57 Airway Date/Time: 01/18/2024 8:47 Urgency: elective Airway not difficult General Information and Staff Patient location during procedure: OR Resident/DIVISION HEAD: Thais Navarro CRNA Performed: resident/DIVISION HEAD/AA Performed by: Thais Navarro CRNA Authorized by: [...] at approach: 1 Gelacio Cespedes MD ANESTHESIA ORDERABLES Fin al Result documented in this encounter Visit Diagnoses Not [...] mg documented in this encounter Care Teams Flatwork Finisher Relationship Specialty Start Date End Date Rukhsana Haywoodgail [address] [place] [address] PCP - General Family Medicine - Primary Care 06/20/23 documented as of this encounter
--- OUTSIDE RECORDS SUMMARY | 2024-09-18 16:02 | XMS_ITS | Encounter Summary ---
Author Organization [facility] Address [address] [place] [address] Care Team Providers Care Furnace Helper Name Role Phone Katia Haywood Primary Care Provider [phone] Reason for Visit * Reason Comments Procedure LEEP Encounter Details Date Type Department Care Team (Late st Contact Info) Description 08/29/2024 8:45 EST Procedure visit [facility] OBGYN Services - [facility] [address] [place], [place] [id number] Katy Lubin MD 111 [facility], Level 4 [place] [address] Mild dysplasia of cervix (AIDEN I) (Primary Dx) Social History Tobacco Use [...] Blood Pressure 110/60 08/29/2024 0859 EST Pulse - - Temperature - - [...] Progress Notes * Katy Lubin MD - 08/29/2024 0845 EST Images from the original note were not included. DIGITAL MEDIA INTERN Leep/Loop Cone Procedure Note Indications: Patient presents/referred for:Loop Cone because of a diagnosis of possible high grade on cervical biopsy found at colposcopy. Took vaginal estrogen. Prior cervical treatment:LEEP 2009 Psoriasis on immunosupressant 06/2009, LEEP - AIDEN [...] AIDEN I, vag bx atypia possible LSIL Loop Cone is recommended treatment:is indeterminate. Procedure Details: Blood pressure 110/60. Examination chaperoned by Abril Manriquez MA. The risks and benefits of the procedure were discussed and written informed consent obtained. The patient was taken to the treatment room and placed in the dorsal lithotomy position. A ground pad wasplaced on the patient's thigh. A nonconductive speculum was placed into the vagina and attached to vacuum filtered suction. The cervix was re-inspected colposcopically after applying 3- 5% acetic acid. Half-strength Lugol's solution was reapplied to confirm distribution of the lesion. Using 2% xylocaine, containing 1:100,000 epinephrine 6 cc's were injected. Posterior half of cervix mostly gone from 2008 LEEP - able to expose extocervical os using tenaculum. For the ectocervical excision, the 1.5 x 0.8 cm electrode was selected and placed at the lateral edge of the cervix, then slowly drawn through the ectocervix. Following the ectocervical loop excision, the 1.0x1.0 cm electrode was selected and the cervical canal was removed in a similar fashion. Thecanal was carefully inspected to determine that the lesion was removed. Bleeding areas were cauterized. An ECC was performed. The specimens were prepared and sent to surgical pathology. Monsell's was applied to the wound. Hemostasis was attained. The procedure was completed and the instruments were removed from the vagina. The patient tolerated the procedure. She was given written instructions on activities and follow-upand discharged from office to home. Image: Cervix: 360 degrees of columnar epithelium seen:no Clinical Impressions: Canal disease Bleeding controlled yes. Specimens: Leep Specimens sent:3 specimens sent. ECC specimens: yes. Endocervix specimens:yes. Ectocervix specimens: yes. Complications: None Plan: HPV and Pap test in 6 months, patient indicates she wants to use [facility] - told best to wait forLEEP results and possibly 6 month f/u beofer using [facility]. Katy Lubin MD documented in this encounter Plan of Treatment Upcoming Encounters Date Type Department Care Team (Late st Contact Info) Description 02/05/2025 11:00 EDT Office Visit [facility] Pelvic Medicine and Reconstructive Surgery - Medical Office Building [address] [address] Solange Garcia PA-C 2 [facility] Office [facility], [address] [phone] documented as of this encounter Procedures Procedure Name Priority Date/Time Associated Diagnosis Comments SURGICAL PATHOLOGY Routine 08/29/2024 11 :43 EST Mild dysplasia of cervix (AIDEN I) documented in this encounter Results * SURGICAL PATHOLOGY (08/29/2024 11:43 EST) Note to Patient The following pathology results have been interpreted by your pathologist and may be available to you before your health provider has had the opportunity to review them. Please allow time for your provider to receive these results and explore management options, if applicable. 09/04/2024 10:57 EST [facility] Final Diagnosis A. CERVIX, ECTOCERVIX, LOOP ELECTROSURGICAL EXCISION PROCEDURE (LEEP): - Benign cervical tissue with squamous metaplasia, parakeratosis and prior biopsy site. - Negative for intraepithelial lesion or malignancy. B. CERVIX, ENDOCERVIX, LOOP ELECTROSURGICAL EXCISION PROCEDURE (LEEP): - Benign endocervical tissue. C. ENDOCERVIX, CURETTAGE: - Fragments of benign endocervix. 09/04/2024 10:57 EST [facility] Attestation There was significant resident/fellow involvement in the diagnostic evaluation of this case. By the signature below, the attending physician certifies that they have personally conducted a gross and/or microscopic examination of the described specimens and rendered or confirmed the above diagnosis. 09/04/2024 10:57 EST [facility] at 1059 Clinical History rodent exterminator HPV pos, recent cx bx intraepithelial lesion suggestive of high grade; clinical diagnosis code: N87.1 09/04/2024 10:57 [facility] Gross Description A. [...] C1. BERE CARTER(ASCP) 08/30/2024 16:10 09/04/2024 10:57 [facility] Resident/Jaison w: Joann Sage MD 09/04/2024 10:57 [facility] Performing Lab [facility] 10:57 [facility] Scanned Images 09/04/2024 10:57 [facility] Tissue ENDOCERVICAL STRUCTURE / Unknown Collection, Other / Unknown 08/29/2024 11:43 EST 08/29/2024 14:26 EST Tissue specimen (specimen) CERVIX UTERI STRUCTURE / Unknown 08/29/2024 11:43 EST 08/29/2024 14:26 EST Tissue specimen (specimen) ENDOCERVICAL STRUCTURE / Unknown 08/29/2024 11:43 EST 08/29/2024 14:26 EST us Katy Lubin MD PATHOLOGY ORDERABLES Final Result [facility] [address] [place] [phone] documented in this encounter Visit Diagnoses Diagnosis Mild dysplasia of cervix (AIDEN I)- Primary Mild dysplasia of cervix documented in this encounter Care Teams Furnace Helper Relationship Specialty Start Date End Date Katia Haywood [address] [place] [phone] PCP - General Family Medicine - Primary Care 06/20/23 documented as of this encounter
--- OUTSIDE RECORDS SUMMARY | 2024-09-18 16:02 | XMS_ITS | Encounter Summary ---
Author Organization [facility] Address [address] [place] [address] Care Team Providers Care Flap Maker Name Role Phone Katia Haywood Primary Care Provider [phone] Reason for Visit * Reason Comments Medications Refill Encounter Details Date Type Department Care Team (Late st Contact Info) Description 04/05/2024 Refill [facility] Pelvic Medicine and Reconstructive Surgery - Medical Office Building [address] [address] Chelsi Rivera MD 2 [facility] Medical Office [facility], [address] [address] Medications Refill Social History Tobacco Use Types [...] 03/11/2016 13:57 EDT documented in this encounter Ordered Prescriptions Prescription Sig Dispense Quantity Refills Last Filled Start Date End Date estradioL (ESTRACE) 0.01 % (0.1 mg/gram) vaginal cream Place 0.5 g vaginally twice a week. 42.5 g 3 04/08/2024 documented in this encounter Miscellaneous Notes * Telephone Encounter - Allie Eng RN - 04/05/2024 8344 EDT Medication Refill Request Pharmacy Request Medication/Dose/Route/Frequency: [...] Info) Description 02/05/2025 11:00 EDT Office Visit [facility] Pelvic Medicine and Reconstructive Surgery - Medical Office Building [address] [address] Solange Garcia PA-C 792 [facility] Office [facility], [address] [phone] documented as of this encounter Visit Diagnoses Not on filedocumented in this encounter Discontinued Medications Medication Sig Discontinue Reason Start Date End Da te estradioL (ESTRACE) 0.01 % (0.1 mg/gram) vaginal cream Place 0.5 g vaginally three times a week. 03/15/2023 04/05/2024 documented as of this encounter Care Teams Flap Maker Relationship Specialty Start Date End Date Katia Haywood [address] [phone] PCP - General Family Medicine - Primary Care 06/20/23 documented as of this encounter
--- OUTSIDE RECORDS SUMMARY | 2024-09-18 16:02 | XMS_ITS | Encounter Summary ---
Author Organization [facility] Address [address] [place] [address] Care Team Providers Care Paste Maker Name Role Phone Katia Haywood Primary Care Provider [phone] Reason for Referral * Specialty Diagnoses / Procedures Referred By Patricio monsivais Referred To Contact Thais Joseph [address] [place] [address] Phone: tel: fax:[phone] Referral ID Status Reason Start Date Expiration Date Visits Re quested Visits Authorized * Specialty Diagnoses / Procedures [facility] Referred To Contact Thais Joseph [address] [place] [address] Phone: tel: fax: Referral ID Status Reason Start Date Expiration [...] Expiration Date Visits Re quested Visits Authorized [id number] 1 1 Encounter Details Date Type Department Care Team (Latest Contact Info) Description 01/18/2024 6:39 EDT - 01/18/2024 11:28 EDT Hospital Encounter [facility] [place] [address] [place], [place] [phone] Chelsi Rivera MD [address] [place] [address] [facility] Medical Office Building, [address] [place] [address] Discharge Disposition: Home or Self [...] * Discharge Instr - AVS First Page* Thasi Joseph - 01/18/2024 10:28 EDT Images from [...] daily for 14 days. 14 Packet 01/18/2024 4 documented as of this encounter Ordered Prescriptions [...] daily for 14 days. 14 Packet 01/18/2024 4 acetaminophen (TYLENOL) 500 mg tablet Take 2 Tablets by mouth every 8 hours for 10 days. 60 Tablet 01/18/2024 4 documented in this encounter Discharge Disposition Disposition Code Departure Means Destination Comment s Home or Self [facility] documented in this encounter Progress Notes * [...] at 01/19/2024 10:28 EDT Source Note - MUSHROOM LABORER, MATTHEW 2 - 01/01/2024 16:24 EDT documented in this encounter OR Notes * OR Surgeon - Chula Whitley MD - 01/18/2024 1017 EDT anterior colporrhaphy, cystoscopy Operative Note Date: 01/18/2024 Location: [facility] OR Name: Martha Benoit, : 1965, Diagnosis [...] Vagina (Active) [REMOVED] Non-Surgical Airway (Removed) Staff: Line Crewman: Devora Pacheco RN Scrub Person: Karyn Sanon MA Patient Relay Motorman: Lauren Marquez Indications: Martha Benoit is an [...] retained. Chelsi Rivera MD / AM Confirmation: [id number] Dictation ID: [id number] cc: documented in this encounter Miscellaneous Notes * Brief Op Note - Thais Joseph - 01/18/2024 1128 EDT Date: 01/18/2024 Location: [facility] OR Name: Martha Benoit, : 1965, Diagnosis [...] Vagina (Active) [REMOVED] Non-Surgical Airway (Removed) Staff: Line Crewman: Devora Pacheco RN Scrub Person: Karyn Sanon MA Patient Relay Motorman: Lauren Marquez Indications: Martha Benoit is an [...] 01/18/24 12:31 Obstetrics & Gynecology, PGY-2 Pager [phone] documented in this encounter Plan of Treatment Upcoming Encounters Date Type Department Care Team (Late st Contact Info) Description 02/05/2025 11:00 EDT Office Visit [facility] Pelvic Medicine and Reconstructive Surgery - Medical Office [address] [phone] Solange Garcia PA-C [address] [place] [address] Medical Office [facility], [address] [phone] Scheduled Referrals Name Type Priority Associated Diagnoses [...] 70 - 100 mg/dL 01/18/2024 10:17 EDT [facility] HN LAB POC COMMENT (GLUCOSE) Test Performed by Nursing Services 01/18/2024 10:17 EDT [facility] Blood CAPILLARY BLOOD / Unknown 01/18/2024 10:16 EDT 01/18/2024 10:17 EDT Thais Navarro CRNA POINT OF CARE TEST ORDERABLE S Final Result [facility] [address] [place] [address] * (ABNORMAL) POCT GLUCOSE, INTERFACED (01/18/2024 8:25 EDT) Glucose, POC 126(H) 70 - 100 mg/dL 01/18/2024 8:26 EDT [facility] HN LAB POC COMMENT (GLUCOSE) Test Performed by Nursing Services 01/18/2024 8:26 EDT [facility] Blood CAPILLARY BLOOD / Unknown 01/18/2024 8:25 EDT 01/18/2024 8:26 EDT Chelsi Rivera MD POINT OF CARE TEST ORDER AMY Final Result Performing Organization Address City/[facility]/ZIP Co de Phone Number [facility] [address] [place] [address] documented in this encounter Visit Diagnoses Not [...] 01/18/2024 documented in this encounter Care Teams Paste Maker Relationship Specialty Start Date End Date Katia Haywood [address] [phone] PCP - General Family Medicine - Primary Care 06/20/23 documented as of this encounter
--- OUTSIDE RECORDS SUMMARY | 2024-09-18 16:02 | XMS_ITS | Encounter Summary ---
Author Organization [facility] Address [address] [place] [address] Care Team Providers Care Skiver Uppers Or Linings Name Role Phone Katia Haywood Primary Care Provider [phone] Reason for Visit * Reason Onset Date Comments Biopsy Results 07/26/2024 Encounter Details Date Type Department Care Team (Late st Contact Info) Description 07/26/[address] [facility] OBGYN Services - [facility] [address] [place], [place] [phone] Jessica Murray NP 111 [facility], [address] [place] [address] Biopsy Results Social History Tobacco [...] encounter Miscellaneous Notes * Telephone Encounter - Sera Wisdom RN - 08/06/2024 1008 EDT MCM from pt with questions r/t stopping Cosentyx prior to LEEP procedure and regarding HPV treatment. Routed encounter to MD Lubin. MCM to pt stating that inquiries were forwarded to the team. * Telephone Encounter - Jodi Swenson RN - 07/30/2024 1520 EDT TC to pt to discuss upcoming LEEP procedure. No answer. LVMTCB or FU on MyChart. MCM sent with LEEPprocedure instructions. * Telephone Encounter - Paul Lei - 07/29/2024 0844 EDT Patient is calling in wanting to discuss leep procedure that is scheduled 08/29 in office. She stated she has not had this done in the office before and wants to know what to expect- if there is any pain medication recommendations. I held 08/15 for pt as she wants to know if she can move it up- was told about estrogen cream (was not sure how long she should be on this before procedure) PT wants to go over procedure details because if she can move up her procedure it would be better for her schedule but she wants to know how she would feel after words as she has a lot going on. Please call pt to discuss at [phone]. * Telephone Encounter - Jessica Murray NP - 07/26/2024 1218 EDT Spoke with patient on phone regarding recent biopsies with likely high grade precancer on cervix. Discussed with Dr. Lubin, needs LEEP with her. Strongly encouraged pt to use her topical estrogen cream to prep. Start now, 1 gm twice weekly and stop 3 days prior to procedure. Pt wondered about the [facility] supplement. Discussed she can consider after LEEP if paps HPV + but won't help her current high grade precancer and needs the LEEP. Transferred to phone room to schedule the LEEP. documented in this encounter Plan of Treatment Upcoming Encounters Date Type Department Care Team (Late st Contact Info) Description 02/05/2025 11:00 EDT Office Visit [facility] Pelvic Medicine and Reconstructive Surgery - Medical Office [address] [phone] Solange Garcia PA-C [address] [place] [address] Medical Office [facility], [address] [phone] documented as of this encounter Visit Diagnoses Not on filedocumented in this encounter Care Teams Skiver Uppers Or Linings Relationship Specialty Start Date End Date Katia Haywood [address] [place] [phone] PCP - General Family Medicine - Primary Care 06/20/23 documented as of this encounter
--- OUTSIDE RECORDS SUMMARY | 2024-09-18 16:03 | XMS_ITS | Encounter Summary ---
Author Organization [facility] Address [address] [place] [address] Care Team Providers Care Production Or Plant Engineer Name Role Phone Katia Haywood Primary Care Provider [phone] Reason for Visit * Reason Onset Date Comments Appointment Related 07/03/2023 Encounter Details Date Type Department Care Team (Late st Contact Info) Description 07/03/2023 Telephone [facility] Rehabilitation Therapy - Medical Office Building [address] [place] [address] Therapy, Outpatient, Appointment Related Social History Tobacco [...] Info) Description 02/05/2025 11:00 EDT Office Visit [facility] Pelvic Medicine and Reconstructive Surgery - Medical Office Building [facility] [address] [place] [address] Solange Garcia PA-C 2 [facility] Medical Office [facility], [address] [phone] documented as of this encounter Visit Diagnoses Not on filedocumented in this encounter Care Teams Production Or Plant Engineer Relationship Specialty Start Date End Date Katia Haywood [address] [place] [phone] PCP - General Family Medicine - Primary Care 06/20/23 documented as of this encounter
--- OUTSIDE RECORDS SUMMARY | 2024-09-18 16:03 | XMS_ITS | Encounter Summary ---
Author Organization [facility] Address [address] [place] [address] Care Team Providers Care Grades 1 6 Tutor Name Role Phone AlexanderAidanantony Mcelroy APRN Primary Care Provider + Reason for Visit * Reason Onset Date Comments Appointment Related 03/28/2022 Encounter Details Date Type Department Care Team (Late st Contact Info) Description 03/28/2022 Telephone [facility] OBGYN Services - [facility] [address] [place], [place] [phone] Katy Lubin MD 111 [facility], [facility] [address] [place] [address] Appointment Related Social History Tobacco [...] to colposcopy. Start:05/30/22 End:06/20/22 42.5 g 03/28/2022 3 documented in this encounter Miscellaneous Notes * [...] Info) Description 02/05/2025 11:00 EDT Office Visit [facility] Pelvic Medicine and Reconstructive Surgery - Medical Office [address] [address] Solange Garcia PA-C [address] [place] [address] Medical Office [facility], [address] [phone] documented as of this encounter Visit Diagnoses Not on filedocumented in this encounter Discontinued Medications Medication Sig Discontinue Reason Start Date End Da te estradiol (ESTRACE) 0.01 % (0.1 mg/gram) vaginal cream Place 1 g vaginally three times a week for 21 days. Do not use for 2 days prior to your colposcopy Reorder 06/21/2019 03/28/2022 documented as of this encounter Care Teams Grades 1 6 Tutor Relationship Specialty Start Date End Date Ruth Munoz, AUTOMATIC SCREWMAKER [address] [place] [phone] PCP - General 04/26/19 06/19/23 documented as of this encounter
--- OUTSIDE RECORDS SUMMARY | 2024-09-18 16:03 | XMS_ITS | Encounter Summary ---
Author Organization [facility] Address [address] [place] [address] Care Team Providers Care Art Installer Name Role Phone Ruth Munoz APRN Primary Care Provider + Reason for Referral * PT/OT/ST (Routine/Next Available) - Specialty Report Received Specialty Diagnoses / Procedures Referred By Patricio monsivais Referred To Contact Rehab Therapies Diagnoses Rectocele Chelsi Rivera MD Phone: tel: fax: [facility] Rehabilitation Therapy - Medical Office Building [address] [place] [address] Phone: tel: fax: Referral ID Status Reason Start Date Expiration Date Visits Requested Visits Authorized [id number] Specialty Report Received Specialty Services Required 03/15/2023 1 1 Question Answer Reason for Request: cysto/rectocele Comments This referral may serve as a referral to occupational therapy if appropriate. Reason for Visit * Reason Comments Follow-up POP, would like to d iscuss options for treatment Encounter Details Date Type Department Care Team (Latest Contact Info) Description 03/15/2023 9:30 EDT Office Visit [facility] Pelvic Medicine and Reconstructive Surgery - Medical Office Building [facility] [address] [place], [place] [address] Chelsi Rivera MD [address] Linnea Chauncey, Medical Office Building, [address] [place] [address] Rectocele (Primary Dx); Weak urinary [...] a week. 42 g 11 03/15/2023 4 documented in this encounter Progress Notes * [...] bladder dysfunction. Undiagnosed neurologic disorder followed at [facility]. Pt has had Video urodynamics with Dr. Kaplan. Case discussed with Dr. Whitley due to obstructive defecation symptoms. Will have pt see Dr. Whitley and start PFPT on same day Fiber information reviewed, recommend Benefiber. F/U after consult with Dr. Whitley to coordinate surgical repair.. Rx estradiol cream Chelsi Rivera MD I spent 40 minutes in [id number] discussion, counseling, and review anatomic diagrams etc. [...] Info) Description 02/05/2025 11:00 EDT Office Visit [facility] Pelvic Medicine and Reconstructive Surgery - Medical Office Building [address] [phone] Solange Garcia PA-C [address] [place] [address] Medical Office [facility], [address] [phone] Scheduled Referrals Name Type Priority Associated Diagnoses [...] documented as of this encounter Care Teams Art Installer Relationship Specialty Start Date End Date Ruth Munoz, CAMPUS SAFETY OFFICER [address] [place] [address] PCP - General 04/26/19 06/19/23 documented as of this encounter
--- OUTSIDE RECORDS SUMMARY | 2024-09-18 16:03 | XMS_ITS | Encounter Summary ---
Author Organization [facility] Address [address] [place] [address] Care Team Providers Care Insurance Sales Agent Name Role Phone Katia Haywood Primary Care Provider [phone] Reason for Visit * Reason Comments Procedure Encounter Details Date Type Department Care Team (Late st Contact Info) Description 07/13/2023 10:15 EDT Procedure visit [facility] OBGYN Services - [facility] [address] [place], [place] [address] Katy Lubin MD [address] [facility], [address] [place] [address] Pap smear abnormality of cervix/human [...] 03/11/2016 13:57 EDT documented in this encounter Patient Instructions [...] After 5 pm, please go to the [facility] Emergency Department. Your biopsy and pap smear results will be phoned to you the week following your procedure between 9:00 am and 5:00 pm. If you have any questions or concerns, please don???t hesitate to call: [facility] MD Jessica Sebastian NP Elisabeth [...] dysplasia Specimens: Cervix: 6 O'Clock, ECC: Curettage, Harlan, right fornix, left upper cervicovaginal junction Vaginal Wall Pap and HPV Complications: None. Plan: Patient will be called with pathology results and recommendations next week. Instructions sheet given to patient. Katy Lubin MD documented in this encounter Plan of Treatment Upcoming Encounters Date Type Department Care Team (Late st Contact Info) Description 02/05/2025 11:00 EDT Office Visit [facility] Pelvic Medicine and Reconstructive Surgery - Medical Office Building [address] [id number] Solange Garcia PA-C [address] [place] [address] Medical Office [facility], [address] [phone] documented as of this encounter Procedures Procedure [...] 16, PCR Negative Negative 08/01/2023 13:13 EDT [facility] HPV18/45 RNA (HPV18/45) Positive(A) Negative 08/01/2023 13:13 EDT [facility] Pap Test CERVIX UTERI STRUCTURE / Unknown 07/13/2023 11:27 EDT 07/25/2023 15:45 EDT us Katy Lubin MD MICROBIOLOGY - GENERAL ORD ERABLES Final Result [facility] [address] [place] [address] * (ABNORMAL) HUMAN PAPILLOMAVIRUS (HPV) DETECTION-HIGH RISK TYPES (07/13/2023 11:27 EDT) HPV other High Risk types, PCR Positive( A) Negative 07/26/2023 23:10 EDT [facility] Comment:E6 OR E7 mRNA from o ne or more types of HPV types 16,18,31,33,35,39,45,51,52,56,58,59,66, and 68 is detected by software solutions architect mediated amplification. High and intermediate risk HPV types are associated with most squamous intraepithelial lesions and cervical cancers. Pap Test CERVIX UTERI STRUCTURE / Unknown 07/13/2023 11:27 EDT 07/25/2023 15:45 EDT us Katy Lubin MD MICROBIOLOGY - GENERAL ORD ERABLES Final Result [facility] [address] [place] [address] * SURGICAL PATHOLOGY (07/13/2023 11:27 EDT) Note to Patient The following pathology results have been interpreted by your pathologist and may be available to you before your health provider has had the opportunity to review them. Please allow time for your provider to receive these results and explore management options, if applicable. 07/17/2023 8:55 EDT [facility] Final Diagnosis A. CERVIX, 6 O'CLOCK, BIOPSY: - Benign squamous mucosa with atrophy. B. VAGINA, RIGHT LATERAL FORNIX AND UPPER VAGINAL-CERVICAL JUNCTION, BIOPSY: - Benign squamous mucosa with hyperparakeratosis and atrophy. - Fragment suggestive of fibroepithelial stromal polyp. C. ENDOCERVIX, CURETTAGE: - Very scant fragments of benign endocervix. 07/17/2023 8:55 EDT [facility] Attestation There was significant resident/fellow involvement in the diagnostic evaluation of this case. By the signature below, the attending physician certifies that they have personally conducted a gross and/or microscopic examination of the described specimens and rendered or confirmed the above diagnosis. 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 Received in [...] BERE ELIZABETH(ASCP) 07/13/2023 17:00 07/17/2023 8:55 EDT [facility] Resident/Fell ow: Jennifer Harvey MD 07/17/2023 8:55 EDT [facility] Performing Lab [facility] 07/17/2023 8:55 EDT [facility] Scanned Images 07/17/2023 8:55 EDT [facility] Tissue ENDOCERVICAL STRUCTURE / Unknown Collection, Other / Unknown 07/13/2023 11:27 EDT 07/13/2023 14:54 EDT Tissue specimen (specimen) VAGINAL STRUCTURE / Unknown 07/13/2023 11:27 EDT 07/13/2023 14:54 EDT Tissue specimen (specimen) ENDOCERVICAL STRUCTURE / Unknown 07/13/2023 11:27 EDT 07/13/2023 14:54 EDT us Katy Lubin MD PATHOLOGY ORDERABLES Final Result [facility] [address] [place] [address] * PAP TEST (07/13/2023 11:27 EDT) Specimens A. Cervix and/or Endocervix , ThinPrep Imaging System with Manual Evaluation 08/01/2023 13:13 [facility] Specimen Adequacy Satisfactory for Evaluation - transformation zone component present 08/01/2023 13:13 [facility] General Categorization Negative for intraepithelial lesion or malignancy 08/01/2023 13:13 [facility] Descriptive Diagnosis Reactive cellular changes associated with inflammation present (includes repair). 08/01/2023 13:13 [facility] Attestation By the signature below, the attending physician certifies that they have personally conducted a gross and/or microscopic examination of the described specimens and rendered or confirmed the above diagnosis. 08/01/2023 13:13 [facility] at 1313 Clinical History longstanding HPV 18 pos 08/01/2023 13:13 EDT [facility] HPV The result for the Human Papillomavirus (HPV) Detection-High Risk Types is Positive . E6 OR E7 mRNA from one or more types of HPV types 16,18,31,33,35,39 ,45,51,52,56,58,5 9,66, and 68 is detected by software solutions architect mediated amplification. High and intermediate risk HPV types are associated with most squamous intraepithelial lesions and cervical cancers. Testing was performed on specimen [id number] and was resulted on 07/26/2023 1610 EDT by GODFREY, LAB INSTRUMENT RESULTS IN 08/01/2023 13:13 EDT [facility] Genotyping 16 & 18/45 The results for the HPV Genotypes 16 and 18/45 are Negative for the HPV16 RNA and Positive for the HPV18/45 RNA (HPV18/45) . Testing was performed on specimen [id number] and was resulted on 08/01/2023 1313 EDT by GODFREY, LAB INSTRUMENT RESULTS IN 08/01/2023 13:13 EDT [facility] Performing Lab [facility] 08/01/2023 13:13 EDT [facility] Scanned Images 08/01/2023 13:13 EDT [facility] Pap Test CERVIX UTERI STRUCTURE / Unknown 07/13/2023 11:27 EDT 07/14/2023 11:17 EDT us Katy Lubin MD PATHOLOGY ORDERABLES Final Result [facility] [address] [place] [address] documented in this encounter Visit Diagnoses Diagnosis Pap smear abnormality of cervix/human papillomavirus (HPV) positive- Primary Other abnormal Papanicolaou smear of cervix and cervical HPV Cervical 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 documented in this encounter Care Teams Insurance Sales Agent Relationship Specialty Start Date End Date Katia Haywood [address] [place] [address] PCP - General Family Medicine - Primary Care 06/20/23 documented as of this encounter
--- OUTSIDE RECORDS SUMMARY | 2024-09-18 16:03 | XMS_ITS | Encounter Summary ---
Author Organization [facility] Address [address] [place] [address] Care Team Providers Care City Planning Teacher Name Role Phone Ruth Munoz APRN Primary Care Provider + Reason for Referral * Radiology Services (Routine/Next Available) - Authorization Not Required Specialty Diagnoses / Procedures Referred By Contac t Referred To Contact Diagnoses Right knee pain, unspecified chronicity Procedures XR KNEE LEFT 3 VIEWS Telma Brady NP Phone: tel: fax: [facility] Referral ID Status Reason Start Date Expiration Date Visits Requested Visits Authorized [id number] Authorization Not Required 05/02/2023 1 1 * Radiology Services (Routine/Next Available) - Authorization Not Required Specialty Diagnoses / Procedures Referred By Contac t Referred To Contact Diagnoses Right knee pain, unspecified chronicity Procedures XR KNEE RIGHT 4 OR MORE VIEWS Telma Brady NP Phone: tel: fax: [facility] Referral ID Status Reason Start Date Expiration Date Visits Requested Visits Authorized [id number] Authorization Not Required 05/02/2023 1 1 Encounter Details Date Type Department Care Team (Late st Contact Info) Description 04/26/2023 Orders Only [facility] [place] [address] Telma Brady NP [address] [place] [address] Right knee pain, unspecified chronicity [...] 03/11/2016 13:57 EDT documented in this encounter Plan of Treatment Upcoming Encounters Date Type Department Care Team (Late st Contact Info) Description 02/05/2025 11:00 EDT Office Visit [facility] Pelvic Medicine and Reconstructive Surgery - Medical Office [facility] [address] [place] [address] Solange Garcia PA-C 2 [facility] Medical Office [facility] [address], [address] [address] documented as of this encounter Results * XR KNEE LEFT 3 VIEWS (05/04/2023 8:55 EDT) Anatomical Region Laterality Modality Lower Extremities Left Computed Radio graphy 05/04/2023 12:5 8 EDT Impressions 05/04/2023 12:58 EDT FINDINGS / IMPRESSION: * ??Right knee 4 views: Moderate joint effusion. Mild tricompartmental osteophyte formation. Normal mineralization. * ??Left knee 3 views: Mild tricompartment osteophytic spurring most notable medially. [id number] Narrative 05/04/2023 12:58 EDT EXAM/TECHNIQUE: 05/04/2023 8:45 AM ??XR KNEE LEFT 3 VIEWS, XR KNEE RIGHT 4 OR MORE VIEWS 3 (accession [id number]), 4 (accession [id number]) views ?? HISTORY: ??left knee for comparison;M25.561:Right knee pain, unspecified chronicity Procedure Note Clifford Santmaaria MD - 05/04/2023 EXAM/TECHNIQUE: 05/04/2023 8:45 AM XR KNEE LEFT 3 VIEWS, XR KNEE RIGHT 4OR MORE VIEWS 3 (accession [id number]), 4 (accession [id number]) views HISTORY: left knee for comparison;M25.561:Right knee pain, unspecifiedchronicity IMPRESSION FINDINGS / IMPRESSION: * Right knee 4 views: Moderate joint effusion. Mild tricompartmentalosteophyte formation. Normal mineralization. * Left knee 3 views: Mild tricompartment osteophytic spurring mostnotable medially. [id number] Telma Brady NP IMG DIAGNOSTIC IMAGING ORDER AMY Final Result * XR KNEE RIGHT 4 OR MORE VIEWS (05/04/2023 8:55 EDT) Anatomical Region Laterality Modality Lower Extremities Right Computed Radio graphy 05/04/2023 12:5 8 EDT Impressions 05/04/2023 12:58 EDT FINDINGS / IMPRESSION: * ??Right knee 4 views: Moderate joint effusion. Mild tricompartmental osteophyte formation. Normal mineralization. * ??Left knee 3 views: Mild tricompartment osteophytic spurring most notable medially. [id number] Narrative 05/04/2023 12:58 EDT EXAM/TECHNIQUE: 05/04/2023 8:45 AM ??XR KNEE LEFT 3 VIEWS, XR KNEE RIGHT 4 OR MORE VIEWS 3 (accession [id number]), 4 (accession [id number]) views ?? HISTORY: ??left knee for comparison;M25.561:Right knee pain, unspecified chronicity Procedure Note Clifford Santamaria MD - 05/04/2023 EXAM/TECHNIQUE: 05/04/2023 8:45 AM XR KNEE LEFT 3 VIEWS, XR KNEE RIGHT 4OR MORE VIEWS 3 (accession [id number]), 4 (accession [id number]) views HISTORY: left knee for comparison;M25.561:Right knee pain, unspecifiedchronicity IMPRESSION FINDINGS / IMPRESSION: * Right knee 4 views: Moderate joint effusion. Mild tricompartmentalosteophyte formation. Normal mineralization. * Left knee 3 views: Mild tricompartment osteophytic spurring mostnotable medially. [id number] Telma Brady NP IMG DIAGNOSTIC IMAGING ORDER AMY Final Result documented in this encounter Visit Diagnoses Diagnosis Right knee pain, unspecified chronicity- Primary Right knee pain, unspecified chronicity documented in this encounter Care Teams City Planning Teacher Relationship Specialty Start Date End Date Ruth Munoz, [employer] [address] [place] [phone] PCP - General 04/26/19 06/19/23 documented as of this encounter
--- OUTSIDE RECORDS SUMMARY | 2024-09-18 16:03 | XMS_ITS | Encounter Summary ---
Author Organization [facility] Address [address] [place] [address] Care Team Providers Care Insurance Case Manager Name Role Phone Katia Haywood Primary Care Provider [phone] Reason for Visit * Reason Onset Date Comments Surgery Scheduling 08/31/2023 Encounter Details Date Type Department Care Team (Late st Contact Info) Description 08/31/2023 Telephone [facility] Pelvic Medicine and Reconstructive Surgery - Medical Office Building [address] [address] Chelsi Rivera MD [address] [place] [address] Medical Office [facility], [address] [address] Surgery Scheduling Social History Tobacco [...] Telephone Encounter - Anny Payne - 08/31/2023 1554 EST Pt is re-scheduled for surgery 01/18/24 [...] 02/05/2025 11:00 EDT Office Visit [facility] Pelvic Medicine and Reconstructive Surgery - Medical Office [address] [address] Solange Garcia PA-C [address] [place] [address], [address] [address] documented as of this encounter Visit Diagnoses Not on filedocumented in this encounter Care Teams Insurance Case Manager Relationship Specialty Start Date End Date Katia Haywood [address] [place] [phone] PCP - General Family Medicine - Primary Care 06/20/23 documented as of this encounter
--- OUTSIDE RECORDS SUMMARY | 2024-09-18 16:03 | XMS_ITS | Encounter Summary ---
Author Organization [facility] Address [address] [place] [address] Care Team Providers Care Information Assurance Analyst Name Role Phone Ruth Munoz APRN Primary Care Provider + Reason for Referral * Radiology Services (Routine/Next Available) - Authorization Not Required Specialty Diagnoses / Procedures Referred By Contac t Referred To Contact Diagnoses Right knee pain, unspecified chronicity Procedures XR KNEE LEFT 3 VIEWS Telma Brady NP Phone: tel: fax: [facility] Referral ID Status Reason Start Date Expiration Date Visits Requested Visits Authorized [id number] Authorization Not Required 05/02/2023 1 1 * Radiology Services (Routine/Next Available) - Authorization Not Required Specialty Diagnoses / Procedures Referred By Contac t Referred To Contact Diagnoses Right knee pain, unspecified chronicity Procedures XR KNEE RIGHT 4 OR MORE VIEWS Telma Brady NP Phone: tel: fax: [facility] Referral ID Status Reason Start Date Expiration Date Visits Requested Visits Authorized [id number] Authorization Not Required 05/02/2023 1 1 Reason for Visit * Radiology Services (Routine/Next Available) - Authorization Not Required Specialty Diagnoses / Procedures Referred By Contac t Referred To Contact Diagnoses Right knee pain, unspecified chronicity Procedures XR KNEE LEFT 3 VIEWS Telma Brady NP Phone: tel: fax: [facility] Referral ID Status Reason Start Date Expiration Date Visits Requested Visits Authorized [id number] Authorization Not Required 05/02/2023 1 1 Encounter Details Date Type Department Care Team (Latest Contact Info) Description 05/04/2023 8:40 EDT - 05/04/2023 23:59 EDT Hospital Encounter [facility] [address] [place] [address] Right knee pain, unspecified chronicity Discharge Disposition: [...] 03/11/2016 13:57 EDT documented in this encounter Medications at [...] capsule Take 1 Capsule by mouth daily. oxyCODONE-acetamin ophen (PERCOCET) 10-325 mg per tablet Take 1 Tablet by mouth every 4 hours as needed for Pain. Takes 5 tabs daily pediatric multivitamin no.76 tablet,chewable Take 1 Tab by mouth. 02/13/2019 triamcinolone (KENALOG) 0.1 % ointment APPLY TOPICALLY TO ARMS LEGS AND ABDOMEN TWO TIMES A DAY NEEDED 05/01/2018 adalimumab (HUMIRA,CF, SUBQ)Indications:t akes every other week not sure of dose Inject into the skin. 4 estradioL (ESTRACE) 0.01 % (0.1 mg/gram) vaginal cream Place 0.5 g vaginally three times a week. 42 g 11 03/15/2023 4 fluconazole (DIFLUCAN) 150 mg tablet Take 1 Tab by mouth every 72 hours. 2 Tab 08/12/2020 4 folic acid (FOLVITE) 1 mg tablet Take 1 mg by mouth daily. Reported on 03/13/2017 4 Miscellaneous Medication - See Admin Instructions Boric acid caps 600 mg each. Sig: insert vaginally HS twice weekly 80 Each 08/12/2020 4 Miscellaneous Medication - See Admin Instructions Boric acid capsules [address] one capsule vaginally HS x 14 days. Call patient when ready. 14 Each 01/20/2020 4 nitroglycerin 0.4 % (w/w) ointment Apply 1 application topically as needed. 03/05/2019 4 documented as of this encounter Discharge Disposition Disposition Code Departure Means Destination Home or Self Care documented in this encounter Plan of Treatment Upcoming Encounters Date Type Department Care Team (Late st Contact Info) Description 02/05/2025 11:00 EDT Office Visit [facility] Pelvic Medicine and Reconstructive Surgery - Medical Office Building [address] [address] Solange Garcia PA-C [address] [place] [address] [facility], [address] [phone] documented as of this encounter Procedures Procedure [...] Mild tricompartment osteophytic spurring most notable medially. [id number] Narrative 05/04/2023 12:58 EDT EXAM/TECHNIQUE: 05/04/2023 8:45 AM ??XR KNEE LEFT 3 VIEWS, XR KNEE RIGHT 4 OR MORE VIEWS 3 (accession [id number]), 4 (accession [id number]) views ?? HISTORY: ??left knee for comparison;M25.561:Right knee pain, unspecified chronicity Procedure Note Clifford Santamaria MD - 05/04/2023 EXAM/TECHNIQUE: 05/04/2023 8:45 AM XR KNEE LEFT 3 VIEWS, XR KNEE RIGHT 4OR MORE VIEWS 3 (accession [id number]), 4 (accession [id number]) views HISTORY: left knee for comparison;M25.561:Right knee pain, unspecifiedchronicity IMPRESSION FINDINGS / IMPRESSION: * Right knee 4 views: Moderate joint effusion. Mild tricompartmentalosteophyte formation. Normal mineralization. * Left knee 3 views: Mild tricompartment osteophytic spurring mostnotable medially. [id number] Telma Brady NP IMG DIAGNOSTIC IMAGING ORDER [...] Mild tricompartment osteophytic spurring most notable medially. [id number] Narrative 05/04/2023 12:58 EDT EXAM/TECHNIQUE: 05/04/2023 8:45 AM ??XR KNEE LEFT 3 VIEWS, XR KNEE RIGHT 4 OR MORE VIEWS 3 (accession [id number]), 4 (accession [id number]) views ?? HISTORY: ??left knee for comparison;M25.561:Right knee pain, unspecified chronicity Procedure Note Clifford Santamaria MD - 05/04/2023 EXAM/TECHNIQUE: 05/04/2023 8:45 AM XR KNEE LEFT 3 VIEWS, XR KNEE RIGHT 4OR MORE VIEWS 3 (accession [id number]), 4 (accession [id number]) views HISTORY: left knee for comparison;M25.561:Right knee pain, unspecifiedchronicity IMPRESSION FINDINGS / IMPRESSION: * Right knee 4 views: Moderate joint effusion. Mild tricompartmentalosteophyte formation. Normal mineralization. * Left knee 3 views: Mild tricompartment osteophytic spurring mostnotable medially. [id number] Telma Brady NP IMG DIAGNOSTIC IMAGING ORDER AMY Final Result documented in this encounter Visit Diagnoses Diagnosis Right knee pain, unspecified chronicity documented in this encounter Care Teams Information Assurance Analyst Relationship Specialty Start Date End Date Ruth Munoz, CLOTH TRIMMER [employer] [address] [place] [phone] PCP - General 04/26/19 06/19/23 documented as of this encounter
--- OUTSIDE RECORDS SUMMARY | 2024-09-18 16:03 | XMS_ITS | Encounter Summary ---
Author Organization [facility] Address [address] [place] [address] Care Team Providers Care Physical Therapy Coordinator Name Role Phone Ruth Munoz APRN Primary Care Provider + Katia Haywood Primary Care Provider [phone] Encounter Details Date Type Department Care Team (Late st Contact Info) Description 07/15/2022 Lab Requisition [facility] Pathology & Laboratory Medicine - [facility] [address] [place] [address] Jonah Bowers, DO [address] [place], [place] Encounter for other general examination Social [...] and Reconstructive Surgery - Medical Office Building [address] [address] Solange Garcia PA-C 2 [facility], [address] [address] documented as of this encounter Procedures Procedure [...] management options, if applicable. 07/19/2022 17:10 EDT [facility] Final Diagnosis A. COLON, ASCENDING, POLYP, BIOPSY: - Benign inflammatory polyp. 07/19/2022 17:10 [facility] Attestation By the signature below, the attending physician certifies that they have 1) personally conducted a gross and/or microscopic examination of the described specimen(s), and/or personally interpreted the results of laboratory testing of the described specimen(s), and 2) personally rendered or confirmed the above diagnosis. 07/19/2022 17:10 [facility] at 1710 Clinical History Family H/O colon cancer, colon polyp, internal hemorrhoids 07/19/2022 17:10 [facility] Gross Description A. Received in formalin labelled with proper patient identification (initials (P, J) and ascending colon polyp is a single russell polypoid tissue (0.8 x 0.5 x 0.2 cm). The specimen is bisected and entirely submitted in A1. COMFORT TERESA 07/18/2022 5:29 07/19/2022 17:10 EDT [facility] Performing Lab [facility] 07/19/2022 17:10 EDT [facility] Scanned Images 07/19/2022 17:10 EDT [facility] Tissue ASCENDING COLON STRUCTURE / Unknown 07/15/2022 8:47 EDT 07/16/2022 7:02 EDT us Jonah Bowers DO PATHOLOGY ORDERABLES Final Re sult [facility] [address] [place] [address] documented in this encounter Visit Diagnoses Diagnosis Encounter for other general examination documented in this encounter Care Teams Physical Therapy Coordinator Relationship Specialty Start Date End Date Ruth Munoz APRN [address] [place] [phone] PCP - General 04/26/19 06/19/23 Katia Haywood [address] [place] [phone] PCP - General Family Medicine - Primary Care 06/20/23 documented as of this encounter
--- OUTSIDE RECORDS SUMMARY | 2024-09-18 16:03 | XMS_ITS | Encounter Summary ---
Author Organization [facility] Address [address] [place] [address] Care Team Providers Care Hospital Medical Assistant Name Role Phone Katia Haywood Primary Care Provider [phone] Reason for Visit * Reason Comments Pre-op Exam Surgery scheduled Encounter Details Date Type Department Care Team (Latest Contact Info) Description 12/28/2023 10:00 EST Office Visit [facility] Pelvic Medicine and Reconstructive Surgery - Medical Office Building [address] [phone] Rachana Garcia PA-C [address] [place] [address] Medical Office [facility], [address] [address] Pre-op evaluation (Primary Dx); Rectocele; [...] Reading Time Taken Comments Blood Pressure 120/56 12/28/2023956 EST Pulse 89 12/28/2023 0957 EST Temperature - - Respiratory Rate - - Oxygen Saturation - - Inhaled Oxygen Concentration - - Weight 67.1 kg (148 lb) 12/28/2023956 EST Height 160 cm (5' 2.99) 12/28/2023 09 EST Body Mass Index 26.22 12/28/2023 09 EST documented in this encounter Functional Status * [...] encounter Patient Instructions * Patient Instructions* Rachana Ye RN - 12/28/2023 10:00 EST Images from the [...] Association Research andDevelopment Committee Opinion August 2016 [facility] Patient Instructions Learning About Urinary Catheter Care [...] a list of the medicines you take. [facility] Medical group Removing an Indwelling Urinary [...] force it. Instead, call our office at [phone]. documented in this encounter Progress Notes * [...] Cancer Sister Diabetes Sister Heart Disease Sister [place] at age 42 = Diabetes Mother Diabetes [...] Info) Description 02/05/2025 11:00 EDT Office Visit [facility] Pelvic Medicine and Reconstructive Surgery - Medical Office [facility] [address] [place], [place] [address] Rachana Garcia PA-C [address] [facility] Medical Office Building, [address] [place] [phone] documented as of this encounter Visit Diagnoses Diagnosis Pre-op evaluation- Primary Preoperative examination, unspecified Rectocele Cystocele with prolapse documented in this encounter Care Teams Hospital Medical Assistant Relationship Specialty Start Date End Date Katia Haywood [address] [place] [phone] PCP - General Family Medicine - Primary Care 06/20/23 documented as of this encounter
--- OUTSIDE RECORDS SUMMARY | 2024-09-18 16:03 | XMS_ITS | Encounter Summary ---
Author Organization [facility] Address [address] [place] [address] Care Team Providers Care [facility] Network Consultant Name Role Phone Katia Haywood Primary Care Provider [phone] Encounter Details Date Type Department Care Team (Latest Contact Info) Description 01/08/2024 9:10 EDT - 01/08/2024 23:59 EDT Hospital Encounter [facility] Pre-Surgical Testing [address] [place], [place] [id number] Discharge Disposition: Home or Self Care Social [...] a week. 42 g 11 03/15/2023 4 Miscellaneous Medication - See Admin Instructions Boric acid capsules [address] one capsule vaginally HS x 14 days. Call patient when ready. 14 Each 01/20/2020 4 polyethylene glycol 3350 (MIRALAX) 17 gram packet Take 17 g by mouth daily for 14 days. 14 Packet 01/18/2024 4 documented as of this encounter Discharge [...] Info) Description 02/05/2025 11:00 EDT Office Visit [facility] Pelvic Medicine and Reconstructive Surgery [place] [address] oSlange Garcia PA-C 7[address] [facility] Linnea Grossman, Medical Office Building, [address] [place] [address] documented as of this encounter Visit Diagnoses [...] may reflect changes made after this encounter. levothyroxine (SYNTHROID) 25 mcg tablet Take 1 Tablet by mouth daily. secukinumab (COSENTYX, 2 SYRINGES,) 150 mg/mL syringe Inject 2 mL into the skin every 4 weeks. Every 28 days added in this encounter Care Teams Healthcare Network Consultant Relationship Specialty Start Date End Date Katia [place]wood [address] [place] [phone] PCP - General Family Medicine - Primary Care 06/20/23 documented as of this encounter
--- OUTSIDE RECORDS SUMMARY | 2024-09-18 16:03 | XMS_ITS | Encounter Summary ---
Author Organization [facility] Address [address] [place] [address] Care Team Providers Care Lighting Designer Name Role Phone Katia Haywood Primary Care Provider Reason for Visit * Reason Onset Date Comments Appointment Related 07/05/2023 Encounter Details Date Type Department Care Team (Late st Contact Info) Description 07/05/2023 Telephone [facility] Total Joint Program - [facility] [address] [place], [place] [phone] Telma Brady NP [address] [place] [address] Appointment Related Social History Tobacco [...] 02/05/2025 11:00 EDT Office Visit [facility] Pelvic Medicine and Reconstructive Surgery - Medical Office [facility] [address] [place] [phone] Solange Garcia PA-C [address] [place] [address] Medical Office [facility], [address] [place] [phone] documented as of this encounter Visit Diagnoses Not on filedocumented in this encounter Care Teams Lighting Designer Relationship Specialty Start Date End Date Katia [place]wood [address] [place] [phone] PCP - General Family Medicine - Primary Care 06/20/23 documented as of this encounter
--- OUTSIDE RECORDS SUMMARY | 2024-09-18 16:03 | XMS_ITS | Encounter Summary ---
Author Organization [facility] Address [address] [place] [address] Care Team Providers Care Drop Forger Helper Name Role Phone Katia Haywood Primary Care Provider [phone] Encounter Details Date Type Department Care Team (Late st Contact Info) Description 12/28/2023 Prep for Procedure [facility] Pelvic Medicine and Reconstructive Surgery - Medical Office Building [facility] [address] [place] [phone] Solange Garcia PA-C 792 [facility], [address] [address] Social History Tobacco Use Types Packs/Day Years [...] 02/05/2025 11:00 EDT Office Visit [facility] Pelvic Medicine and Reconstructive Surgery - Medical Office Building [facility] [address] [place], [place] [address] Solange Garcia PA-C [address] [place] [address] Medical Office [facility], [address] [place] [address] documented as of this encounter Visit Diagnoses Not on filedocumented in this encounter Care Teams Drop Forger Helper Relationship Specialty Start Date End Date Katia Haywood [address] [place] [phone] PCP - General Family Medicine - Primary Care 06/20/23 documented as of this encounter
--- OUTSIDE RECORDS SUMMARY | 2024-09-18 16:03 | XMS_ITS | Encounter Summary ---
Author Organization [facility] Address [address] [place] [address] Care Team Providers Care Enterprise Cloud Architect Name Role Phone Ruth Munoz APRN Primary Care Provider + Reason for Visit * Reason Comments Foot Problem Encounter Details Date Type Department Care Team (Latest Contact Info) Description 06/14/2023 14:00 EDT Office Visit [facility] Foot & Ankle Program - [address] [address] Edwige Keller, DP [address] [place] [address] Hyperkeratosis (Primary Dx); Type 2 diabetes mellitus with diabetic polyneuropathy, with long-term current use of insulin ([facility]) Social History Tobacco Use Types Packs/Day Years [...] documented in this encounter Progress Notes * KrishnaEdwige Lilibeth, DPM - 06/14/2023 1400 EDT Martha Benoit [...] List Diagnosis Date Noted ??? Diabetes mellitus ([facility]) 08/11/2014 ??? Vitamin D deficiency 01/28/2010 ??? Morbid obesity ([facility]) 01/22/2010 ??? Mild dysplasia of cervix ([facility] [...] ??? Diabetes Sister ??? Heart Disease Sister [place] at age 42 = ??? Diabetes Mother [...] polyneuropathy, with long-term current use of insulin ([facility]) ([facility]) No orders of the defined types were [...] speech recognition software or keyboard senior data analyst techniques. Minor irregularities or keyboarding misprints may be present documented in this encounter Plan of Treatment Upcoming Encounters Date Type Department Care Team (Late st Contact Info) Description 02/05/2025 11:00 EDT Office Visit [facility] Pelvic Medicine and Reconstructive Surgery - Medical Office Building [facility] [address] [place] [phone] Solange Garcia PA-C 2 [facility] Medical Office Building, [address] [place] [phone] documented as of this encounter Visit Diagnoses Diagnosis Hyperkeratosis- Primary Acquired keratoderma Type 2 diabetes mellitus with diabetic polyneuropathy, with long-term current use of insulin ([facility]) documented in this encounter Care Teams Enterprise Cloud Architect Relationship Specialty Start Date End Date Ruth Munoz, VERTICAL LATHE OPERATOR [address] [place] [address] PCP - General 04/26/19 06/19/23 documented as of this encounter
--- OUTSIDE RECORDS SUMMARY | 2024-09-18 16:03 | XMS_ITS | Encounter Summary ---
Author Organization [facility] Address [address] [place] [address] Care Team Providers Care Carpenter Supervisor Wooden Ship Name Role Phone Ruth Munoz APRN Primary Care Provider + Reason for Visit * Reason Onset Date Comments Appointment Related 03/15/2023 Encounter Details Date Type Department Care Team (Late st Contact Info) Description 03/15/2023 Telephone [facility] Rehabilitation Therapy - Medical Office Building [address] [place] [address] Therapy, Physical Appointment Related Social History Tobacco [...] Notes * Telephone Encounter - Elisa Miles - 03/15/2023 1153 EDT [facility] REHABILITATION THERAPY - MEDICAL OFFICE BUILDING [address] [facility] [address] Telephone Intake Information for Scheduling NEW Patients for Therapy Diagnosis: Cysto/rectocele Scene Painter needed? No [place] - any age REFERRAL REQUIRED. Have you been seen for therapy since October of this year? No, Medicaid will cover 30 totaltherapy visits (PT, OT, and GAS TORCH SOLDERER combined) between October and October 22 of [...] Info) Description 02/05/2025 11:00 EDT Office Visit [facility] Pelvic Medicine and Reconstructive Surgery - Medical Office [address] [address] Solange Garcia PA-C 792 [facility] Medical Office [facility], [address] [place] [phone] documented as of this encounter Visit Diagnoses Not on filedocumented in this encounter Care Teams Carpenter Supervisor Wooden Ship Relationship Specialty Start Date End Date Ruth Munoz APRN [address] [place] [phone] PCP - General 04/26/19 06/19/23 documented as of this encounter
--- OUTSIDE RECORDS SUMMARY | 2024-09-18 16:03 | XMS_ITS | Encounter Summary ---
Author Organization [facility] Address [address] [place] [address] Care Team Providers Care Security Compliance Specialist Name Role Phone Ruth Munoz APRN Primary Care Provider + Reason for Visit * Reason Comments Follow-up prolapse * Consult (See Order Priority) - Order Cancelled Specialty Diagnoses / Procedures Referred By Patricio monsivais Referred To Contact Pelvic Medicine Diagnoses Rectocele Cystocele, midline Lola Vargas MD Phone: tel: fax: [facility] Pelvic Medicine and Reconstructive Surgery - Medical Office Building [address] [address] Phone: tel: fax: Referral ID Status Reason Start Date Expiration Date Visits Requested Visits Authorized [id number] Order Cancelled Specialty Services Required 07/14/2021 1 1 Encounter Details Date Type Department Care Team (Latest Contact Info) Description 09/15/2021 10:00 EST Office Visit [facility] Pelvic Medicine and Reconstructive Surgery - Medical Office Building [facility] [address] [place] [address] Chelsi Rivera MD [address] [place] [address] Medical Office Building, [address] [place] [phone] Weak urinary stream (Primary Dx) Social History [...] Follow-up (prolapse).Pt had Video urodynamics with Dr. Kpalan 04/12 following Televideo consult with me 03/12. [...] and Family: Not on file ??? Attends [employer]: Not on file ??? Active Member [...] stage 2 cysto/rectocele Assessment and Plan Martha Benoit is a 55 y.o., female with milod [...] Info) Description 02/05/2025 11:00 EDT Office Visit [facility] Pelvic Medicine and Reconstructive Surgery - Medical Office Building [facility] [address] [place] [phone] Solange Garcia PA-C [address] [place] [address] Medical Office [facility], [address] [place] [phone] documented as of this encounter Visit Diagnoses Diagnosis Weak urinary stream- Primary Slowing of urinary stream documented in this encounter Care Teams Security Compliance Specialist Relationship Specialty Start Date End Date Ruth Munoz APRN [address] [place] [phone] PCP - General 04/26/19 06/19/23 documented as of this encounter
--- OUTSIDE RECORDS SUMMARY | 2024-09-18 16:03 | XMS_ITS | Encounter Summary ---
Author Organization [facility] Address [address] [place] [address] Care Team Providers Care Copper Roller Handler Printing Name Role Phone Katia Haywood Primary Care Provider [phone] Reason for Visit * Reason Onset Date Comments Other 12/27/2023 Encounter Details Date Type Department Care Team (Late st Contact Info) Description 12/27/2023 Telephone [facility] General Surgery - [facility] [address] [place], [place] [phone] Chula Whitley MD [address] [facility], [address] [place] [address] Other Social History Tobacco Use [...] Info) Description 02/05/2025 11:00 EDT Office Visit [facility] Pelvic Medicine and Reconstructive Surgery - Medical Office Building [facility] [address] [place] [address] Solange Garcia PA-C 2 [facility] Medical Office [facility], [address] [place] [phone] documented as of this encounter Visit Diagnoses Not on filedocumented in this encounter Care Teams Copper Roller Handler Printing Relationship Specialty Start Date End Date Katia Haywood [address] [place] [phone] PCP - General Family Medicine - Primary Care 06/20/23 documented as of this encounter
--- OUTSIDE RECORDS SUMMARY | 2024-09-18 16:03 | XMS_ITS | Encounter Summary ---
Author Organization [facility] Address [address] [place] [address] Care Team Providers Care Corrections Nurse Name Role Phone Katia Haywood Primary Care Provider [phone] Reason for Visit * Reason Onset Date Comments Surgery Scheduling 06/20/2023 Encounter Details Date Type Department Care Team (Late st Contact Info) Description 06/20/2023 Telephone [facility] Pelvic Medicine and Reconstructive Surgery - Medical Office Building [address] [address] Chelsi Rivera MD [address] [place] [address] Medical Office [facility], [address] [phone] Surgery Scheduling Social History Tobacco [...] Info) Description 02/05/2025 11:00 EDT Office Visit [facility] Pelvic Medicine and Reconstructive Surgery - Medical Office [address] [address] Solange Garcia PA-C 2 [facility] Medical Office [facility], [address] [phone] documented as of this encounter Visit Diagnoses Not on filedocumented in this encounter Care Teams Corrections Nurse Relationship Specialty Start Date End Date Katia [address] [place] [phone] PCP - General Family Medicine - Primary Care 06/20/23 documented as of this encounter
--- OUTSIDE RECORDS SUMMARY | 2024-09-18 16:03 | XMS_ITS | Encounter Summary ---
Author Organization [facility] Address [address] [place] [address] Care Team Providers Care Agricultural Crop Farm Manager Name Role Phone Ruth Munoz Lilibeth JUAREZ Primary Care Provider + Reason for Visit * Reason Comments Procedure Encounter Details Date Type Department Care Team (Latest Contact Info) Description 07/14/2021 10:45 EDT Procedure visit [facility] OBGYN Services - [facility] [address] [place] [address] Lola Vargas MD 2 [facility] Medical Office Building, [address] [place] [address] Rectocele (Primary Dx); Cystocele, midline; [...] documented in this encounter Progress Notes * Lola Vargas [...] no Lugol's negative lesions? no Vulva: nl / spec exam reveals a grade 3 cystocele [...] 02/05/2025 11:00 EDT Office Visit [facility] Pelvic Medicine and Reconstructive Surgery - Medical Office Building [address] [address] Solange Garcia PA-C [address] [place] [address] Medical Office [facility], [address] [phone] documented as of this encounter Procedures Procedure [...] 16, PCR Negative Negative 07/22/2021 15:26 EDT [facility] HPV18/45 RNA (HPV18/45) Positive(A) Negative 07/22/2021 15:26 EDT [facility] Papanicolaou smear specimen (specimen) CERVIX UTERI STRUCTURE / Unknown 07/14/2021 12:08 EDT 07/16/2021 13:23 EDT Lola Vargas MD MICROBIOLOGY - GENERAL ROBINA GOLD Final Result Performing Organization Address City/[facility]/ZIP Co de Phone Number [facility] [address] [place] [address] * (ABNORMAL) HUMAN PAPILLOMAVIRUS (HPV) DETECTION-HIGH RISK TYPES (07/14/2021 12:08 EDT) HPV other High Risk types, PCR Positive( A) Negative 07/22/2021 15:26 EDT [facility] Comment:E6 OR E7 mRNA from o ne or more types of HPV types 16,18,31,33,35,39,45,51,52,56,58,59,66, and 68 is detected by camera repairman mediated amplification. High and intermediate risk HPV types are associated with most squamous intraepithelial lesions and cervical cancers. Papanicolaou smear specimen (specimen) CERVIX UTERI STRUCTURE / Unknown 07/14/2021 12:08 EDT 07/16/2021 13:23 EDT Lola Vargas MD MICROBIOLOGY - GENERAL ROBINA GOLD Final Result Performing Organization Address City/[facility]/ZIP Co de Phone Number [facility] [address] [phone] * SURGICAL PATHOLOGY (07/14/2021 12:08 EDT) Note to Patient The following pathology results have been interpreted by your pathologist and may be available to you before your health provider has had the opportunity to review them. Please allow time for your provider to receive these results and explore management options, if applicable. 07/16/2021 13:58 [facility] Final Diagnosis A. ENDOCERVIX, CURETTAGE: - Minute detached fragment of squamous epithelium with atypia. See comment. 07/16/2021 13:58 [facility] Diagnosis Comment The detached fragment is quite small and seen only on the first level. It exhibits a rare cell with koilocytic atypia, and thus a squamous intraepithelial lesion cannot be absolutely excluded. 07/16/2021 13:58 [facility] Attestation There was significant resident/fellow involvement in the diagnostic evaluation of this case. By the signature below, the attending physician certifies that they have personally conducted a gross and/or microscopic examination of the described specimens and rendered or confirmed the above diagnosis. 07/16/2021 13:58 [facility] at 1358 Clinical History HPV positive last yr, Pap done along with this ECC; clinical diagnosis code: D87.810 07/16/2021 13:58 [facility] Gross Description A. Received in formalin labelled with proper patient identification (initials P, J) and ECC is an aggregate of russell blood-tinged mucin (0.7 x 0.5 x 0.2 cm). The specimen is submitted in A1. BERE MENDOZA(ASCP) 07/14/2021 14:50 07/16/2021 13:58 [facility] Resident/Jaison w: Jose Venegas MD 07/16/2021 13:58 [facility] Performing Lab [facility] 13:58 [facility] Scanned Images 07/16/2021 13:58 [facility] Tissue ENTIRE ENDOCERVIX / Unknown Collection, Other / Unknown 07/14/2021 12:08 EDT 07/14/2021 14:37 EDT us Lola Vargas MD PATHOLOGY ORDERABLES Final Result [facility] [address] [place] [address] * PAP TEST (07/14/2021 12:08 EDT) Specimens A. Cervix and/or Endocervix , ThinPrep Imaging System with Manual Evaluation 07/22/2021 15:26 EDT [facility] Specimen Adequacy Satisfactory for Evaluation - assessment of transformation zone component not applicable ( e.g. atrophy, vaginal sample, hysterectomy) 07/22/2021 15:26 EDT [facility] General Categorization Negative for intraepithelial lesion or malignancy 07/22/2021 15:26 T [facility] Attestation . 07/22/2021 15:26 T [facility] at 1525 Clinical History one yr f/u pap after HPV positive. long hx of abnormal paps 07/22/2021 15:26 T [facility] HPV The result for the Human Papillomavirus (HPV) Detection-High Risk Types is Positive . E6 OR E7 mRNA from one or more types of HPV types 16,18,31,33,35,39 ,45,51,52,56,58,5 9,66, and 68 is detected by camera repairman mediated amplification. High and intermediate risk HPV types are associated with most squamous intraepithelial lesions and cervical cancers. Testing was performed on specimen [id number] and was resulted on 07/19/2021 1617 EDT by GODFREY, LAB INSTRUMENT RESULTS IN 07/22/2021 15:26 T [facility] Genotyping 16 & 18/45 The results for the HPV Genotypes 16 and 18/45 are Negative for the HPV16 RNA and Positive for the HPV18/45 RNA (HPV18/45) . Testing was performed on specimen [id number] and was resulted on 07/22/2021 1341 EDT by GODFREY, LAB INSTRUMENT RESULTS IN 07/22/2021 15:26 EDT [facility] Performing Lab [facility] 07/22/2021 15:26 EDT [facility] Scanned Images 07/22/2021 15:26 EDT [facility] Papanicolaou smear specimen (specimen) CERVIX UTERI STRUCTURE / Unknown 07/14/2021 12:08 EDT 07/14/2021 14:32 EDT us Lola Vargas MD PATHOLOGY ORDERABLES Final Result [facility] [address] [place] [address] documented in this encounter Visit Diagnoses Diagnosis Rectocele- Primary Cystocele, midline Routine Papanicolaou smear Screening for malignant neoplasm of the cervix Cervical 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 documented in this encounter Care Teams Agricultural Crop Farm Manager Relationship Specialty Start Date End Date Ruth Munoz, DIAMOND SIZER [address] [place] [address] PCP - General 04/26/19 06/19/23 documented as of this encounter
--- OUTSIDE RECORDS SUMMARY | 2024-09-18 16:03 | XMS_ITS | Encounter Summary ---
Author Organization [facility] Address [address] [place] [address] Care Team Providers Care Wire Rope Sales Representative Name Role Phone MunozRuth jerome Lilibeth JUAREZ Primary Care Provider + Reason for Visit * Reason Onset Date Comments Medications Refill 08/16/2021 Encounter Details Date Type Department Care Team (Late st Contact Info) Description 08/16/2021 Refill [facility] ENT [address] [place] [phone] Pierre Zacarias MD [address] [place] [address] Medications Refill Social History Tobacco [...] Refills Last Filled Start Date End Date cyclobenzaprine (FLEXERIL) 10 mg tablet Take 1 Tablet by mouth at bedtime. 90 Tablet 08/16/2021 documented in this encounter Miscellaneous Notes * Telephone Encounter - Mel Castellanos - 08/16/2021 0915 EDT Patient called and requested a refill of her Cyclobenaprine 10 mg she is [facility]. She can be reached at [phone] documented in this encounter Plan of Treatment Upcoming Encounters Date Type Department Care Team (Late st Contact Info) Description 02/05/2025 11:00 EDT Office Visit [facility] Pelvic Medicine and Reconstructive Surgery - Medical Office Building [address] [address] Solange Garcia PA-C [address] [place] [address] Medical Office [facility], [address] [phone] documented as of this encounter Visit Diagnoses Not on filedocumented in this encounter Discontinued Medications Medication Sig Discontinue Reason Start Date End Da te cyclobenzaprine (FLEXERIL) 10 mg tablet Take 1 Tablet by mouth at bedtime. Reorder 05/04/2021 08/16/2021 documented as of this encounter Care Teams Wire Rope Sales Representative Relationship Specialty Start Date End Date Ruth Munoz, GEAR GENERATOR SET UP OPERATOR [address] [place] [phone] PCP - General 04/26/19 06/19/23 documented as of this encounter
--- OUTSIDE RECORDS SUMMARY | 2024-09-18 16:03 | XMS_ITS | Encounter Summary ---
Author Organization [facility] Address [address] [place] [address] Care Team Providers Care Cuprous Chloride Helper Name Role Phone Katia Haywood Primary Care Provider [phone] Reason for Visit * Reason Onset Date Comments Follow-up 10/06/2023 Encounter Details Date Type Department Care Team (Late st Contact Info) Description 10/06/2023 Telephone [facility] General Surgery - [facility] [address] [place], [place] [phone] Chula Whitley MD 111 [facility], [address] [place] [address] Follow-up Social History Tobacco Use [...] Encounter - Sofía Fernandez RN - 10/10/2023 7506 EST TC to pt. Advised that another [...] Encounter - Sofía Fernandez RN - 10/09/2023 7972 EST Images from the original note were [...] def continue PFPT. Thanks, K TC to [facility]. There is not polyp path from most recent colo but they will fax over path from07/15/22 colo. * Telephone Encounter - Maricel Dockery - 10/06/2023 9423 EST Patient called to say the colonoscopy she had showed nothing, asking what the next step would be? documented in this encounter Plan of Treatment Upcoming Encounters Date Type Department Care Team (Late st Contact Info) Description 02/05/2025 11:00 EDT Office Visit [facility] Pelvic Medicine and Reconstructive Surgery - Medical Office Building [facility] [address] [place] [address] Solange Garcia PA-C [address] [facility] Office [facility], [address] [phone] documented as of this encounter Visit Diagnoses Not on filedocumented in this encounter Care Teams Cuprous Chloride Helper Relationship Specialty Start Date End Date Katia Haywood [address] [place] [phone] PCP - General Family Medicine - Primary Care 06/20/23 documented as of this encounter
--- OUTSIDE RECORDS SUMMARY | 2024-09-18 16:03 | XMS_ITS | Encounter Summary ---
Author Organization [facility] Address [address] [place] [address] Care Team Providers Care Pediatric Allergist Name Role Phone Katia Haywood Primary Care Provider [phone] Reason for Referral * Referral (Routine/Next Available) - Specialty Report Received Specialty Diagnoses / Procedures Referred By Patricio monsivais Referred To Contact Diagnoses Personal history of colonic polyps Narrowing of stools Procedures COLONOSCOPY Chula Whitley MD Phone: tel: fax: [facility] [address] [place] [address] Phone: tel: fax: Referral ID Status Reason Start Date Expiration Date V isits Requested Visits Authorized [id number] Specialty Report Received 08/16/2023 1 1 Reason for Visit * Reason Onset Date Comments Referral Request 08/16/2023 Encounter Details Date Type Department Care Team (Late st Contact Info) Description 08/16/2023 Telephone [facility] Pelvic Medicine and Reconstructive Surgery - Medical Office [facility] [address] [place] [address] Allie Eng RN Referral Request [...] Encounter - Allie Eng RN - 08/16/2023 8702 EDT Images from the original note were not included. Chula Whitley MD You 1 hour ago (11:43) That would be so helpful! ??Correct--poor prep (not adequate for polyp surveillance on last), personal history of polyp, colonoscopy and narrow caliber stool. I am fine with any endoscopist doing it. Thank you so very very much! Chula Zayas MD 1 hour ago (11:32) Alex Quiros pt requesting referral to [facility] for colonoscopy, with indication. Sounds like previous colo was incomplete d/t poor prep, per pt. Let us know if you'd like us to place this. Thanks! Faxed via [employer] to [phone], per . All referral questions answered via chart review/TC to pt. Pt made aware we have placed this referral today. * Telephone Encounter - Allie Eng RN - 08/16/2023 0399 EDT VM from pt requesting colonoscopy referral from Dr. Whitley sent to [facility]. Their phone is [phone] and their fax is [phone]. They will need to know why thecolonoscopy is indicated. Pt states the last colo she did was not great because her prep was not complete. Routed to Dr. Whitley. documented in this encounter Plan of Treatment Upcoming Encounters Date Type Department Care Team (Late st Contact Info) Description 02/05/2025 11:00 EDT Office Visit [facility] [place] [facility] Pelvic Medicine and Reconstructive Surgery - Medical Office Building [address] [address] Solange Garcia PA-C 2 [facility] Office [facility], [address] [phone] Scheduled Orders Name Type Priority Associated Diagnoses Orde r Schedule COLONOSCOPY GI Routine Personal history of colonic polyps Narrowing of stools Expected: 08/16/2023 (Approximate), Expires: 02/14/2025 documented as of this encounter Visit Diagnoses Diagnosis Personal history of colonic polyps- Primary Narrowing of stools Abnormal feces documented in this encounter Care Teams Pediatric Allergist Relationship Specialty Start Date End Date Katia Haywood [address] [place] [address] PCP - General Family Medicine - Primary Care 06/20/23 documented as of this encounter
--- OUTSIDE RECORDS SUMMARY | 2024-09-18 16:03 | XMS_ITS | Encounter Summary ---
Author Organization [facility] Address [address] [place] [address] Care Team Providers Care Dough Raiser Name Role Phone Katia Haywood Primary Care Provider [phone] Reason for Visit * Reason Onset Date Comments Results 07/17/2023 Encounter Details Date Type Department Care Team (Late st Contact Info) Description 07/17/2023 Telephone [facility] OBGYN Services - [address] [phone] Katy Lubin MD 111 [facility], [address] [place] [address] Results Social History Tobacco Use [...] Info) Description 02/05/2025 11:00 EDT Office Visit [facility] Pelvic Medicine and Reconstructive Surgery - Medical Office [address] [address] Solange Garcia PA-C [address] [place] [address] Medical Office [facility], [address] [place] [phone] documented as of this encounter Visit Diagnoses Not on filedocumented in this encounter Care Teams Dough Raiser Relationship Specialty Start Date End Date Katia Haywood [address] [place] [phone] PCP - General Family Medicine - Primary Care 06/20/23 documented as of this encounter
--- OUTSIDE RECORDS SUMMARY | 2024-09-18 16:03 | XMS_ITS | Encounter Summary ---
Author Organization [facility] Address [address] [place] [address] Care Team Providers Care Bus Info Consultant Name Role Phone Katia Haywood Primary Care Provider [phone] Reason for Visit * Reason Onset Date Comments Pre-procedure 01/08/2024 Encounter Details Date Type Department Care Team (Late st Contact Info) Description 01/08/2024 Telephone [facility] Pelvic Medicine and Reconstructive Surgery - Medical Office [facility] [address] [place] [address] Sofía Fernandez, BRENDAN [address] [place] [address] Pre-procedure Social History Tobacco Use Types Packs/Day [...] Telephone Encounter - Sofía Fernandez RN - 01/08/2024 0910 EDT Nurse from [...] Info) Description 02/05/2025 11:00 EDT Office Visit [facility] Pelvic Medicine and Reconstructive Surgery - Medical Office [address] [phone] Solange Garcia PA-C [address] [place] [address] Office [facility], [address] [phone] documented as of this encounter Visit Diagnoses Not on filedocumented in this encounter Care Teams Bus Info Consultant Relationship Specialty Start Date End Date Katia Haywood [address] [place] [phone] PCP - General Family Medicine - Primary Care 06/20/23 documented as of this encounter
--- OUTSIDE RECORDS SUMMARY | 2024-09-18 16:03 | XMS_ITS | Encounter Summary ---
Author Organization [facility] Address [address] [place] [address] Care Team Providers Care Horticultural Agent Name Role Phone Katia Haywood Primary Care Provider [phone] Reason for Visit * Reason Onset Date Comments Surgery Scheduling 01/17/2024 Encounter Details Date Type Department Care Team (Late st Contact Info) Description 01/17/2024 Telephone [facility] Pelvic Medicine and Reconstructive Surgery - Medical Office Building [address] [address] Chelsi Rivera MD [address] [place] [address] Medical Office [facility], [address] [phone] Surgery Scheduling Social History Tobacco [...] * Telephone Encounter - Anny Payne - 01/17/2024 1018 EDT Spoke with the patient on 01/17/24. The patient was instructed to check in at 6:30 AM for a procedure at 8:30 AM on 01/18/24 @ the [facility]. Prep for Surgery: Have no solid [...] Info) Description 02/05/2025 11:00 EDT Office Visit [facility] Pelvic Medicine and Reconstructive Surgery - Medical Office Building [facility] [address] [place] [address] Solange Garcia PA-C [address] [place] [address] Medical Office [facility], [address] [place] [phone] documented as of this encounter Visit Diagnoses Not on filedocumented in this encounter Care Teams Horticultural Agent Relationship Specialty Start Date End Date Katia Haywood [address] [place] [phone] PCP - General Family Medicine - Primary Care 06/20/23 documented as of this encounter
--- OUTSIDE RECORDS SUMMARY | 2024-09-18 16:03 | XMS_ITS | Encounter Summary ---
Author Organization [facility] Address [address] [place] [address] Care Team Providers Care Steel Loader Name Role Phone Ruth Munoz APRN Primary Care Provider + Reason for Referral * PT/OT/ST (Routine/Next Available) - Closed Specialty Diagnoses / Procedures Referred By Patricio monsivais Referred To Contact Rehab Therapies Diagnoses Osteoarthritis of right patellofemoral joint Quadriceps weakness Telma Brady NP Phone: tel: fax: Referral ID Status Reason Start Date Expiration Date V isits Requested Visits Authorized [id number] Closed Specialty Services Required 05/04/2023 1 1 [...] Pain in right knee Ruth Munoz APRN [address] [place] [phone] Phone: tel: fax: [facility] - [place] [address] Phone: tel: fax: Referral ID Status Reason Start Date Expiration Date Visits Requested Visits Authorized [id number] Receiving Office to Obtain Authorization 1 1 Encounter Details Date Type Department Care Team (Latest Contact Info) Description 05/04/2023 9:00 EDT Office Visit [facility] - [address] [place] [address] Telma Brady NP [address] [place] [address] Osteoarthritis of right patellofemoral joint [...] documented in this encounter Progress Notes * Telma Brady [...] called to verify the correctpatient, procedure, equipment, account support analyst and site/side marked as required. Patient was prepped and draped in the usual sterile fashion. DISPOSITION: follow-up in [facility] as needed Dr. [...] prepared with speech recognition software and/or keyboard senior clinical data coordinator techniques. Minor irregularities may be present. Cc: Ruth Munoz Cc: Alexander documented in this encounter Plan of Treatment Upcoming Encounters Date Type Department Care Team (Late st Contact Info) Description 02/05/2025 11:00 EDT Office Visit [facility] Pelvic Medicine and Reconstructive Surgery - Medical Office Building [address] [address] Solange Garcia PA-C [address] [place] [address] Medical Office [facility], [address] [phone] Scheduled Referrals Name Type Priority Associated Diagnoses [...] joint documented in this encounter Results * MS ARTHROCENTESIS ASPIR&/INJ MAJOR JT/BURSA W/O US (05/04/2023 9:00 EDT) Narrative [facility] POINT OF CARE - 05/04/2023 9:00 EDT Telma Brady, POLO ? 05/04/2023 10:44 Large Joint Injection/Arthrocentesis: R [...] to verify the correct patient, procedure, equipment, account support analyst and site/side marked as required. Patient was prepped and draped in the usual sterile fashion. Telma Brady NP PROCEDURE/MINOR SURGICAL ORD ERABLES Final Result [facility] POINT OF CARE documented in this encounter [...] at 0900, Until Ava 05/04/23 at 0900, RoutineIndications:Osteoarthritis of right patellofemoral joint Given 05/04/2023 9:00 EDT 6 mL methylPREDNISolone ACETATE (DEPO-MEDROL) injection 80 mg 80 mg, intra-articular, Once PRN Procedure, 1 dose, Starting on Ava 05/04/23 at 0900, Until Ava 05/04/23 at 0900, RoutineIndications:Osteoarthritis of right patellofemoral joint Given 05/04/2023 9:00 EDT 80 mg documented in this encounter Care Teams Steel Loader Relationship Specialty Start Date End Date Ruth Munoz, COMPLETIONS ENGINEER [address] [place] [phone] PCP - General 04/26/19 06/19/23 documented as of this encounter
--- OUTSIDE RECORDS SUMMARY | 2024-09-18 16:03 | XMS_ITS | Encounter Summary ---
Author Organization [facility] Address [address] [place] [address] Care Team Providers Care Shoulder Boner Name Role Phone MunozAidanantony Mcelroy APRN Primary Care Provider + Reason for Visit * Reason Onset Date Comments Other 08/16/2021 Encounter Details Date Type Department Care Team (Late st Contact Info) Description 08/16/2021 Telephone [facility] ENT [address] [place], [place] [phone] Pierre Zacarias MD [address] [place] [address] Other Social History Tobacco Use [...] Info) Description 02/05/2025 11:00 EDT Office Visit [facility] Pelvic Medicine and Reconstructive Surgery - Medical Office [address] [address] Solange Garcia PA-C 2 [facility] Medical Office [facility], [address] [address] documented as of this encounter Visit Diagnoses Not on filedocumented in this encounter Care Teams Shoulder Boner Relationship Specialty Start Date End Date Ruth Munoz APRN [address] [place] [phone] PCP - General 04/26/19 06/19/23 documented as of this encounter
--- OUTSIDE RECORDS SUMMARY | 2024-09-18 16:03 | XMS_ITS | Encounter Summary ---
Author Organization [facility] Address [address] [place] [address] Care Team Providers Care Quill Stripper Name Role Phone AlexanderAidanantony Mcelroy APRN Primary Care Provider + Reason for Visit * Reason Onset Date Comments New Patient Visit 05/20/2021 Encounter Details Date Type Department Care Team (Late st Contact Info) Description 05/20/2021 Telephone [facility] Neurology - [address] [phone] Unknown, Doctor New Patient Visit Social History [...] Notes * Telephone Encounter - Brittnee Beavers - 05/20/2021 1035 EDT Spoke to Martha to schedule NPV with [place] and she advised was seen yesterday in [place]. Declined appointment and asked to close the referral. documented in this encounter Plan of Treatment Upcoming Encounters Date Type Department Care Team (Late st Contact Info) Description 02/05/2025 11:00 EDT Office Visit [facility] Pelvic Medicine and Reconstructive Surgery - Medical Office Building [facility] [address] [place] [address] Solange Garcia PA-C 2 [facility] Medical Office [facility] [place] [facility], [address] [place] [phone] documented as of this encounter Visit Diagnoses Not on filedocumented in this encounter Care Teams Quill Stripper Relationship Specialty Start Date End Date Ruth Munoz, LARRY 4 [facility] [place] [phone] PCP - General 04/26/19 06/19/23 documented as of this encounter
--- OUTSIDE RECORDS SUMMARY | 2024-09-18 16:03 | XMS_ITS | Encounter Summary ---
Author Organization [facility] Address [address] [place] [address] Care Team Providers Care Almond Sorter Name Role Phone MunozRuth Lilibeth JUAREZ Primary Care Provider + Reason for Visit * Reason Onset Date Comments Results 06/29/2022 Encounter Details Date Type Department Care Team (Late st Contact Info) Description 06/29/2022 Telephone [facility] OBGYN Services - [address] [phone] Katy Lubin MD 111 [facility] 4 [place] [address] Results Social History Tobacco Use [...] 02/05/2025 11:00 EDT Office Visit [facility] Pelvic Medicine and Reconstructive Surgery - Medical Office Building [address] [address] Solange Garcia PA-C [address] [place] [address] Medical Office [facility], [address] [place] [phone] documented as of this encounter Visit Diagnoses Not on filedocumented in this encounter Care Teams Almond Sorter Relationship Specialty Start Date End Date Ruth Munoz, LARRY 4 [place] [phone] PCP - General 04/26/19 06/19/23 documented as of this encounter
--- OUTSIDE RECORDS SUMMARY | 2024-09-18 16:03 | XMS_ITS | Encounter Summary ---
Author Organization [facility] Address [address] [place] [address] Care Team Providers Care Detasseling Crew Supervisor Name Role Phone Ruth Munoz APRN Primary Care Provider + Katia Haywood Primary Care Provider [phone] Reason for Visit * Reason Onset Date Comments Update 05/18/2021 Encounter Details Date Type Department Care Team (Late st Contact Info) Description 05/18/2021 Telephone [facility] ENT [address] [place] [address] [place] [address] [facility]. [address] [place] [address] Update Social History Tobacco Use [...] still there. Please advise. Call back # [phone] The patient to relay she has a televideo appointment tomorrow with neurology documented in this encounter Plan of Treatment Upcoming Encounters Date Type Department Care Team (Late st Contact Info) Description 02/05/2025 11:00 EDT Office Visit [facility] Pelvic Medicine and Reconstructive Surgery - Medical Office [address] [address] Solange Garcia PA-C [address] [place] [address] Medical Office [facility], [address] [address] documented as of this encounter Visit Diagnoses Not on filedocumented in this encounter Care Teams Detasseling Crew Supervisor Relationship Specialty Start Date End Date Ruth Munoz APRN [address] [place] [phone] PCP - General 04/26/19 06/19/23 Katia Haywood [address] [place] [address] PCP - General Family Medicine - Primary Care 06/20/23 documented as of this encounter
--- OUTSIDE RECORDS SUMMARY | 2024-09-18 16:03 | XMS_ITS | Encounter Summary ---
Author Organization [facility] Address [address] [place] [address] Care Team Providers Care Graffiti Cleaner Name Role Phone Katia Haywood Primary Care Provider [phone] Encounter Details Date Type Department Care Team (Late st Contact Info) Description 12/28/2023 9:40 EST Phlebotomy Only [facility] Laboratory Services [facility] ([address] [phone] Rectocele Social History Tobacco Use Types Packs/Day [...] and Reconstructive Surgery - Medical Office Building [facility] [address] [place] [address] Solange Garcia PA-C 792 [facility] Medical Office Building, [address] [address] documented as of this encounter Procedures Procedure Name Priority Date/Time Associated Diagnosis Comments COMPLETE BLOOD COUNT Routine 12/28/2023 9:27 EST Rectocele BASIC METABOLIC PANEL (BMP) Routine 12/28/2023 9:27 EST Rectocele documented in this encounter Results * (ABNORMAL) BASIC METABOLIC PANEL (BMP) (12/28/2023 9:27 EST) Sodium 143 136 - 145 mmol/L 12/28/2023 11:26 [facility] Potassium 4.1 3.5 - 5.0 mmol/L 12/28/2023 11:26 [facility] Chloride 103 96 - 110 mmol/L 12/28/2023 11:26 [facility] CO2 Total 29 22 - 32 mmol/L 12/28/2023 11:26 [facility] Anion Gap 11 5 - 14 mmol/L 12/28/2023 11:26 [facility] Glucose 107(H) 70 - 99 mg/dl 12/28/2023 11:26 [facility] Calcium 8.8 8.5 - 10.5 mg/dL 12/28/2023 11:26 [facility] BUN 9(L) 10 - 26 mg/dL 12/28/2023 11:26 [facility] Creatinine 0.35(L) 0.52 - 1.04 mg/dL 12/28/2023 11:26 [facility] eGFR 117 >60 mL/min/1.73 m2 12/28/2023 11:26 [facility] Blood VENOUS BLOOD / Unknown Venipuncture / Unknown 12/28/2023 9:27 EST 12/28/2023 9:27 EST Chula Whitley MD CHEMISTRY & BLOOD GAS ORDERABL ES Final Result [facility] [address] [place] [address] * COMPLETE BLOOD COUNT (12/28/2023 9:27 EST) WBC 6.98 4.00 - 12.40 K/cmm 12/28/2023 10:58 [facility] RBC 4.54 3.86 - 5.04 M/cmm 12/28/2023 10:58 [facility] Hemoglobin 12.9 11.6 - 15.2 g/dL 12/28/2023 10:58 [facility] HCT 39.1 34.9 - 44.4 % 12/28/2023 10:58 [facility] MCV 86 81 - 98 fL 12/28/2023 10:58 [facility] MCH 28.4 26.7 - 33.3 pg 12/28/2023 10:58 [facility] MCHC 33.0 32.1 - 35.9 g/dL 12/28/2023 10:58 [facility] RDW-CV 12.4 <14.7 % 12/28/2023 10:58 [facility] RDW-SD 39.1 <50.4 fl 12/28/2023 10:58 [facility] PLT 230 141 - 377 K/cmm 12/28/2023 10:58 [facility] MPV 11.2 9.5 - 12.7 fL 12/28/2023 10:58 [facility] Blood VENOUS BLOOD / Unknown Venipuncture / Unknown 12/28/2023 9:27 EST 12/28/2023 9:27 EST us Chula Whitley MD HEMATOLOGY & PF4 ORDERABLES Fi nal Result [facility] [address] [place] [address] documented in this encounter Visit Diagnoses Diagnosis Rectocele documented in this encounter Care Teams Graffiti Cleaner Relationship Specialty Start Date End Date Katia Haywood [address] [place] [address] PCP - General Family Medicine - Primary Care 06/20/23 documented as of this encounter
--- OUTSIDE RECORDS SUMMARY | 2024-09-18 16:03 | XMS_ITS | Encounter Summary ---
Author Organization [facility] Address [address] [place] [address] Care Team Providers Care Environmental Protection Inspector Name Role Phone Katia Haywood Primary Care Provider [phone] Reason for Visit * Reason Onset Date Comments Other 07/10/2023 Encounter Details Date Type Department Care Team (Late st Contact Info) Description 07/10/2023 Telephone [facility] General Surgery - [facility] [address] [place], [place] [phone] Chula Whitley MD 111 [facility], [address] [place] [address] Other Social History Tobacco Use [...] Whitley MD [facility] Center Nurse; Phylicia Venegas, RN 2 hours ago (14:19) I would recommend colonoscopy prior to OR in October. ??She may have that done in [place] or here, but given her poor prep, [...] provider as their protocols may differ from [facility]'s protocols. Is a colo needed for the rectocele repair? Advised that I will route this question to MUKUL as the note does not clearly state [...] adequate prep. She is aware that Dr. hWitley would like her to have a repeat colonoscopy but she is concerned about getting ill with the prep. She would like to know if MD has ideas about a prep that would be easier and more effective. She is coming to the office today and will bring a copy of recent colonoscopy report to have scanned in her chart. * Telephone Encounter - Trcay Ayala - 07/10/2023 0954 EDT Martha is having a co-surgery with Gutierrez/Nicole November 16, 2023. When Dr. Whitley saw her [facility] she mentions getting another colonoscopy prior to surgery. I called Martha to ask her if she was going to [place] to have it or did she want [...] Info) Description 02/05/2025 11:00 EDT Office Visit [facility] Pelvic Medicine and Reconstructive Surgery - Medical Office Building [facility] [address] [place] [phone] Solange Garcia PA-C [address] [facility] Office [facility], [address] [place] [phone] documented as of this encounter Visit Diagnoses Not on filedocumented in this encounter Care Teams Environmental Protection Inspector Relationship Specialty Start Date End Date Katia Haywood [address] [place] [address] PCP - General Family Medicine - Primary Care 06/20/23 documented as of this encounter
--- OUTSIDE RECORDS SUMMARY | 2024-09-18 16:03 | XMS_ITS | Encounter Summary ---
Author Organization [facility] Address [address] [place] [address] Care Team Providers Care Skirt Panel Assembler Name Role Phone MunozRuth jerome Lilibeth JUAREZ Primary Care Provider + Reason for Visit * Reason Comments Procedure Encounter Details Date Type Department Care Team (Late st Contact Info) Description 06/23/2022 9:45 EDT Procedure visit [facility] OBGYN Services - [address] [address] Katy Lubin MD 111 [facility], [address] [place] [address] Cervical high risk human papillomavirus [...] Toussaint MD 06/23/22 10:27 OBGYN PGY-2 Pager #[phone] Attestation statement: I was present during the entire procedure and agree with the resident's note. Katy Lubin MD 06/23/2022 10:42 documented in this encounter Plan of Treatment Upcoming Encounters Date Type Department Care Team (Late st Contact Info) Description 02/05/2025 11:00 EDT Office Visit [facility] Pelvic Medicine and Reconstructive Surgery - Medical Office Building [facility] [address] [place] [address] Solange Garcia PA-C [address] [place] [address] Medical Office Building, [address] [place] [phone] documented as of this encounter Procedures Procedure [...] management options, if applicable. 06/29/2022 13:28 EDT [facility] Final Diagnosis A. CERVIX, 6 AND 7 O'CLOCK, BIOPSY: - Transformation zone mucosa with atypical squamous metaplasia. See comment. B. ENDOCERVIX, CURETTAGE: - Fragments of endocervical epithelium with no significant pathologic features. C. VAGINA, RIGHT LATERAL WALL, BIOPSY: - Polypoid squamous mucosa with chronic inflammation and reactive changes. 06/29/2022 13:28 T [facility] Diagnosis Comment In the Cervix biopsies at 6 and 7 o'clock (part A), the features are most in keeping with atypical squamous metaplasia, as supported by the immunostains below. No definitive high-grade dysplasia is identified in this sample. Retail Business Development Manager slides of this case were reviewed at the intradepartmental consultation conference. Immunoperoxidase stains were performed on this case to further characterize the lesion. ANTIBODY(CLONE)(BLO CK):RESULT P16 (E6H4TM, Vega) (A1): Cytoplasmic expression only Ki67 (MIB-1) (K2, [...] performance characteristics have been determined by [facility] and/or by the referring laboratory. The [...] high complexity clinical laboratory testing. 06/29/2022 13:28 [facility] Attestation There was significant resident/fellow involvement in the diagnostic evaluation of this case. By the signature below, the attending physician certifies that they have personally conducted a gross and/or microscopic examination of the described specimens and rendered or confirmed the above diagnosis. 06/29/2022 13:28 [facility] at 1328 Clinical History HPV 18/45 positive; clinical diagnosis code: R87.810 06/29/2022 13:28 [facility] Gross Description A. Received [...] C1. BERE CHENG(ASCP) 06/23/2022 18:36 06/29/2022 13:28 [facility] Resident/Fell ow: Raymon Barba DO 06/29/2022 13:28 [facility] Performing Lab [facility] 06/29/2022 13:28 [facility] Scanned Images 06/29/2022 13:28 [facility] Tissue ENTIRE VAGINA / Unknown Collection, Other / Unknown 06/23/2022 10:41 EDT 06/23/2022 15:10 EDT Tissue specimen (specimen) ENDOCERVICAL STRUCTURE / Unknown 06/23/2022 10:41 EDT 06/23/2022 15:10 EDT Tissue specimen (specimen) VAGINAL STRUCTURE / Unknown 06/23/2022 10:41 EDT 06/23/2022 15:10 EDT us Katy Lubin MD PATHOLOGY ORDERABLES Final Result [facility] [address] [place] [address] documented in this encounter Visit Diagnoses Diagnosis Cervical 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- Primary documented in this encounter Care Teams Skirt Panel Assembler Relationship Specialty Start Date End Date Ruth Munoz, SAW SHARPENER [address] [place] [phone] PCP - General 04/26/19 06/19/23 documented as of this encounter
--- OUTSIDE RECORDS SUMMARY | 2024-09-18 16:03 | XMS_ITS | Encounter Summary ---
Author Organization [facility] Address [address] [place] [address] Care Team Providers Care Pig Conveyor Operator Name Role Phone MunozAidanantony Mcelroy APRN Primary Care Provider + Reason for Visit * Reason Comments Follow-up Encounter Details Date Type Department Care Team (Late st Contact Info) Description 06/14/2023 8:45 EDT Office Visit [facility] Pelvic Medicine and Reconstructive Surgery - Medical Office [facility] [address] [place] [phone] Chula Whitley MD 111 [facility], [address] [place] [address] Rectocele (Primary Dx) Social History [...] humira, on percocet ( 6 times/day--prescribed by [place] PCP) Follows with Dr. Rivera and Rosaura (UDT) Pt is concerned this may be related to her worsening undiagnosed Neurologic disease. 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 Pt states she was exposed to toxic sprays when playing in the [employer] as a child. As a teen, she [...] Prior colonoscopy: about a year ago-- in [place]--had poor prep, one polyp found. Is planning [...] ??? Diabetes Sister ??? Heart Disease Sister [place] at age 42 = ??? Diabetes Mother [...] confirmed prior to the procedure. With a conditioner tumbler present the patient was placed in left [...] anismus as well. -to get colonoscopy/path from [place]--she knows she needs to repeat her colonoscopy [...] and Reconstructive Surgery - Medical Office Building [address] [address] Solange Garcia PA-C [address] [place] [address] Medical Office [facility], [address] [address] documented as of this encounter Results * (ABNORMAL) BASIC METABOLIC PANEL (BMP) (12/28/2023 9:27 EST) Sodium 143 136 - 145 mmol/L 12/28/2023 11:26 [facility] Potassium 4.1 3.5 - 5.0 mmol/L 12/28/2023 11:26 [facility] Chloride 103 96 - 110 mmol/L 12/28/2023 11:26 [facility] CO2 Total 29 22 - 32 mmol/L 12/28/2023 11:26 [facility] Anion Gap 11 5 - 14 mmol/L 12/28/2023 11:26 [facility] Glucose 107(H) 70 - 99 mg/dl 12/28/2023 11:26 [facility] Calcium 8.8 8.5 - 10.5 mg/dL 12/28/2023 11:26 [facility] BUN 9(L) 10 - 26 mg/dL 12/28/2023 11:26 [facility] Creatinine 0.35(L) 0.52 - 1.04 mg/dL 12/28/2023 11:26 [facility] eGFR 117 >60 mL/min/1.73 m2 12/28/2023 11:26 [facility] Blood VENOUS BLOOD / Unknown Venipuncture / Unknown 12/28/2023 9:27 EST 12/28/2023 9:27 EST Chula Whitley MD CHEMISTRY & BLOOD GAS ORDERABL ES Final Result [facility] [address] [place] [address] * COMPLETE BLOOD COUNT (12/28/2023 9:27 EST) WBC 6.98 4.00 - 12.40 K/cmm 12/28/2023 10:58 [facility] RBC 4.54 3.86 - 5.04 M/cmm 12/28/2023 10:58 [facility] Hemoglobin 12.9 11.6 - 15.2 g/dL 12/28/2023 10:58 [facility] HCT 39.1 34.9 - 44.4 % 12/28/2023 10:58 [facility] MCV 86 81 - 98 fL 12/28/2023 10:58 [facility] MCH 28.4 26.7 - 33.3 pg 12/28/2023 10:58 [facility] MCHC 33.0 32.1 - 35.9 g/dL 12/28/2023 10:58 [facility] RDW-CV 12.4 <14.7 % 12/28/2023 10:58 [facility] RDW-SD 39.1 <50.4 fl 12/28/2023 10:58 [facility] PLT 230 141 - 377 K/cmm 12/28/2023 10:58 EST [facility] MPV 11.2 9.5 - 12.7 fL 12/28/2023 10:58 EST [facility] Blood VENOUS BLOOD / Unknown Venipuncture / Unknown 12/28/2023 9:27 EST 12/28/2023 9:27 EST us Chula Whitley MD HEMATOLOGY & PF4 ORDERABLES Fi nal Result [facility] [address] [place] [address] documented in this encounter Visit Diagnoses Diagnosis Rectocele- Primary documented in this encounter Care Teams Pig Conveyor Operator Relationship Specialty Start Date End Date Ruth Munoz, RN PEDIATRIC [address] [place] [phone] PCP - General 04/26/19 06/19/23 documented as of this encounter
--- OUTSIDE RECORDS SUMMARY | 2024-09-18 16:03 | XMS_ITS | Encounter Summary ---
Author Organization [facility] Address [address] [place] [address] Care Team Providers Care Content Architect Name Role Phone Katia Haywood Primary Care Provider [phone] Reason for Visit * Reason Onset Date Comments Letter 07/05/2023 Encounter Details Date Type Department Care Team (Late st Contact Info) Description 07/05/2023 Telephone [facility] Total Joint Program - [facility] [address] [place] [address] Telma Brady NP [address] [place] [address] Letter Social History Tobacco Use [...] Info) Description 02/05/2025 11:00 EDT Office Visit [facility] Pelvic Medicine and Reconstructive Surgery - Medical Office [facility] [address] [place] [address] Solange Garcia PA-C 2 [facility] Medical Office [facility], [address] [phone] documented as of this encounter Visit Diagnoses Not on filedocumented in this encounter Care Teams Content Architect Relationship Specialty Start Date End Date Katia Haywood [address] [facility] [place] [phone] PCP - General Family Medicine - Primary Care 06/20/23 documented as of this encounter
--- OUTSIDE RECORDS SUMMARY | 2024-09-18 16:03 | XMS_ITS | Encounter Summary ---
Author Organization [facility] Address [address] [place] [address] Care Team Providers Care Youth Counselor Name Role Phone AlexanderAidanantony Mcelroy APRN Primary Care Provider + Reason for Visit * Reason Onset Date Comments Advice Only 07/05/2021 Encounter Details Date Type Department Care Team (Late st Contact Info) Description 07/05/2021 Telephone [facility] OBGYN Services - [facility] [address], [place] [phone] Cici Barker, POLO 111 [facility], [facility] [address] [place] [address] Advice Only Social History Tobacco [...] Pt has a colposcopy scheduled at the [facility]AF FAT SCRAPER office next week. I recommended that she ask that they look to see if she truly has a prolapse. I scheduled her with Dr Rivera for a f/u in August. * Telephone Encounter - Arin Ruby - 07/05/2021 0943 EDT Pt is calling to discuss sx of feeling a lot of pressure where it feels like everything is going to fall out. Pt is also seen at the [facility]. Pt states, I am not [...] be seen. Pt can be reached at [phone] documented in this encounter Plan of Treatment Upcoming Encounters Date Type Department Care Team (Late st Contact Info) Description 02/05/2025 11:00 EDT Office Visit [facility] Pelvic Medicine and Reconstructive Surgery - Medical Office Building [facility] [address] [place] [address] Solange Garcia PA-C [address] [place] Linnea Chauncey, Medical Office Building, [address] [place] [address] documented as of this encounter Visit Diagnoses Not on filedocumented in this encounter Care Teams Youth Counselor Relationship Specialty Start Date End Date Ruth Munoz APRN [address] [place] [address] PCP - General 04/26/19 06/19/23 documented as of this encounter
--- OUTSIDE RECORDS SUMMARY | 2024-09-18 16:03 | XMS_ITS | Encounter Summary ---
Author Organization [facility] Address [address] [place] [address] Care Team Providers Care Waste Machine Offbearer Name Role Phone Ruth Munoz LOG PREPARER Primary Care Provider + Reason for Visit * Reason Comments New Patient Visit otalgia * Referral (Routine) - Receiving Office to Obtain Authorization Specialty Diagnoses / Procedures Referred By Patricio monsivais Referred To Contact Otolaryngology Diagnoses Otalgia, left ear Ruth Munoz, LOG PREPARER [address] [place] [address] Phone: tel: fax: [facility] [address] [place] [address] Phone: tel: Referral ID Status Reason Start Date Expiration Date Visits Requested Visits Authorized [id number] Receiving Office to Obtain Authorization 1 1 Encounter Details Date Type Department Care Team (Late st Contact Info) Description 05/04/2021 10:30 EDT Office Visit [facility] [address] [place] [address] [place] [address] [place] [address] Otalgia, left ear (Primary Dx); [...] of cervix ([facility]) ??? Morbid obesity ([facility]) ??? Vitamin D deficiency ??? Diabetes mellitus ([facility]) Past Medical History: Diagnosis Date ??? Unspecified cerebral artery occlusion with cerebral infarction Past Surgical History: Procedure Laterality Date ??? CERVIX LESION DESTRUCTION 07/15/2009 ??? GASTRIC BYPASS SURGERY 01/04/16 ??? LEEP 07/15/2009 ??? TUBAL LIGATION Family History Problem Relation Age of Onset ??? Colon Cancer Father ??? Diabetes Father ??? Stroke Father ??? Cervical Cancer Sister ??? Diabetes Sister ??? Heart Disease Sister [place] at age 42 = ??? Diabetes Mother [...] Gatherings with Friends and Family: ??? Attends Sabianism Services: ??? Active Member of Clubs or [...] Info) Description 02/05/2025 11:[address] [facility] Pelvic Medicine and Reconstructive Surgery - Medical Office Building [facility] [address] [place] [address] Solange Garcia PA-C 2 [facility] Medical Office Building, [address] [place] [address] documented as of this encounter Visit Diagnoses Diagnosis Otalgia, left ear- Primary Myofascial muscle pain Mylagia and myositis, unspecified documented in this encounter Care Teams Waste Machine Offbearer Relationship Specialty Start Date End Date Ruth Munoz, LOG PREPARER [address] [place] [phone] PCP - General 04/26/19 06/19/23 documented as of this encounter
--- OUTSIDE RECORDS SUMMARY | 2024-09-18 16:03 | XMS_ITS | Encounter Summary ---
Author Organization [facility] Address [address] [place] [address] Care Team Providers Care Ocular Pathologist Name Role Phone AlexanderAidanantony Mcelroy APRN Primary Care Provider + Reason for Visit * Reason Onset Date Comments Surgery Scheduling 06/15/2023 Encounter Details Date Type Department Care Team (Late st Contact Info) Description 06/15/2023 Telephone [facility] Pelvic Medicine and Reconstructive Surgery - Medical Office Building [address] [address] Chelsi Rivera MD [address] [place] [address] Medical Office [facility], [address] [address] Surgery Scheduling Social History [...] Dr. Whitley Need colonoscopy report path from [place] 06/13' PCP H & P Dr. Whitley ordered labs Consent done from Dr. Whitley if we go forward documented in this encounter Plan of Treatment Upcoming Encounters Date Type Department Care Team (Late st Contact Info) Description 02/05/2025 11:00 EDT Office Visit [facility] Pelvic Medicine and Reconstructive Surgery - Medical Office Building [facility] [address] [place] [phone] Solange Garcia PA-C [address] [place] [address] Medical Office [facility], [address] [address] documented as of this encounter Visit Diagnoses Not on filedocumented in this encounter Care Teams Ocular Pathologist Relationship Specialty Start Date End Date Ruth Munoz APRN 4 [facility] [place] [address] PCP - General 04/26/19 06/19/23 documented as of this encounter
--- OUTSIDE RECORDS SUMMARY | 2024-09-18 16:03 | XMS_ITS | Encounter Summary ---
Author Organization [facility] Address [address] [place] [address] Care Team Providers Care Auto Body Estimator Name Role Phone MunozAidanantony Mcelroy APRN Primary Care Provider + Reason for Visit * Reason Comments Follow-up Encounter Details Date Type Department Care Team (Latest Contact Info) Description 06/14/2023 9:30 EDT Office Visit [facility] Pelvic Medicine and Reconstructive Surgery - Medical Office Building [address] [phone] Chelsi Rivera MD [address] [place] [address] Medical Office [facility], [address] [address] Other female genital prolapse (Primary [...] documented in this encounter Progress Notes * Saadia Diana [...] and Reconstructive Surgery - Medical Office [facility] [address] [place] [address] Solange Garcia PA-C 7[address] [facility] Medical Office [facility], [address] [place] [address] documented as of this encounter Visit Diagnoses Diagnosis Other female genital prolapse- Primary documented in this encounter Care Teams Auto Body Estimator Relationship Specialty Start Date End Date Ruth Munoz, PRODUCTION RECORDER [address] [place] [phone] PCP - General 04/26/19 06/19/23 documented as of this encounter
--- OUTSIDE RECORDS SUMMARY | 2024-09-18 16:04 | XMS_ITS | Encounter Summary ---
Author Organization [facility] Address [address] [place] [address] Care Team Providers Care Machine Presser Name Role Phone Ruth Munoz APRN Primary Care Provider + Katia Haywood Primary Care Provider [phone] Encounter Details Date Type Department Care Team (Late st Contact Info) Description 09/24/2020 Lab Requisition [facility] Pathology & Laboratory Medicine - [facility] [address] [place], [place] [address] Outr Resulting Lab, Provider Social History Tobacco [...] Reconstructive Surgery - Medical Office Building [facility] [address] [place] [address] Solange Garcia PA-C 2 [facility] Medical Office [facility] [address] [place] [phone] documented as of this encounter Procedures Procedure Name Priority Date/Time Associated Diagnosis Comments VITAMIN B12 Routine 09/24/2020 17:04 EST documented in this encounter Results * (ABNORMAL) VITAMIN B12 (09/24/2020 17:04 EST) Vitamin B12 1,832(H) 211 - 911 pg/mL 09/24/2020 22:32 EST [facility] Blood VENOUS BLOOD / Unknown 09/24/2020 17:04 EST 09/24/2020 21:38 EST us Provider Outr Resulting Lab CHEMISTRY & BLOOD GA S ORDERABLES Final Result Performing Organization Address City/State/[facility] Co de Phone Number [facility] [address] [place] [address] documented in this encounter Visit Diagnoses Not on filedocumented in this encounter Care Teams Machine Presser Relationship Specialty Start Date End Date Ruth Munoz APRN [address] [place] [address] PCP - General 04/26/19 06/19/23 Katia Haywood [address] [place] [address] PCP - General Family Medicine - Primary Care 06/20/23 documented as of this encounter
--- OUTSIDE RECORDS SUMMARY | 2024-09-18 16:04 | XMS_ITS | Encounter Summary ---
Author Organization [facility] Address [address] [place] [address] Care Team Providers Care Vacuum Cooker Operator Name Role Phone MunozRuth jerome Lilibeth JUAREZ Primary Care Provider + Reason for Visit * Reason Onset Date Comments Other 06/05/2020 Encounter Details Date Type Department Care Team (Late st Contact Info) Description 06/05/2020 Telephone [facility] ENT - [place] [address] [place] [address] Shola Vazquez MD 130 [facility] [address] [place] [address] Other Social History Tobacco Use [...] Telephone Encounter - Fariha Pritchard - 06/05/2020 1145 EDT Patient is calling to ask if she can get some antibiotics. She feels like her sinuses are draining in to her ear. Patient is also calling in regards to her MRI. She is not able to go on 06/11/2020 andis very disappointed. I have rescheduled her on 06/18/2020 @ 6:45pm. She has confirmed this appointment. Please call her at [phone]. documented in this encounter Plan of Treatment Upcoming Encounters Date Type Department Care Team (Late st Contact Info) Description 02/05/2025 11:00 EDT Office Visit [facility] Pelvic Medicine and Reconstructive Surgery - Medical Office Building [facility] [address] [place] [address] Solange Garcia PA-C [address] [place] [address] Medical Office Building, [address] [place] [address] documented as of this encounter Visit Diagnoses Not on filedocumented in this encounter Care Teams Vacuum Cooker Operator Relationship Specialty Start Date End Date Ruth Munoz, ASSEMBLER CONVERTIBLE TOP [address] [place] [phone] PCP - General 04/26/19 06/19/23 documented as of this encounter
--- OUTSIDE RECORDS SUMMARY | 2024-09-18 16:04 | XMS_ITS | Encounter Summary ---
Author Organization [facility] Address [address] [place] [address] Care Team Providers Care Bill Clerk Name Role Phone Ruth Munoz APRN Primary Care Provider + Katia Haywood Primary Care Provider [phone] Encounter Details Date Type Department Care Team (Walter Monika Info) Description 02/04/2020 Lab Requisition [facility] Pathology & Laboratory Medicine - [facility] [address] [place] [address] Unknown, Provider, Social History Tobacco Use Types Packs/Day Years Used Date Smoking Tobacco: Never Smokeless Tobacco: Never Alcohol Use Standard Drinks/Week Comments No 0 (1 standard drink = 0.6 oz pur e alcohol) Comments No Sex and Gender Information Value [...] Upcoming Encounters Date Type Department Care Team (Walter kelsey Contact Info) Description 02/05/2025 11:00 EDT Office Visit [facility] Pelvic Medicine and Reconstructive Surgery - Medical Office Building [facility] [address] [place] [address] Solange Garcia PA-C 792 [facility] Medical Office Building, [address] [place] [phone] documented as of this encounter Procedures Procedure Name Priority Date/Time Associated Diagnosis Comments VITAMIN B12 Routine 02/04/2020 11:38 EDT documented in this encounter Results * (ABNORMAL) VITAMIN B12 (02/04/2020 11:38 EDT) Vitamin B12 1,497(H) 211 - 911 pg/mL 02/05/2020 15:20 EDT [facility] Blood VENOUS BLOOD / Unknown 02/04/2020 11:38 EDT 02/04/2020 21:31 EDT us Provider Unknown CHEMISTRY & BLOOD GAS ORDERA BLES Final Result [facility] [address] [place] [address] documented in this encounter Visit Diagnoses Not on filedocumented in this encounter Care Teams Bill Clerk Relationship Specialty Start Date End Date Ruth Munoz APRN [address] [place] [address] PCP - General 04/26/19 06/19/23 Katia Haywood [address] [place] [address] PCP - General Family Medicine - Primary Care 06/20/23 documented as of this encounter
--- OUTSIDE RECORDS SUMMARY | 2024-09-18 16:04 | XMS_ITS | Encounter Summary ---
Author Organization [facility] Address [address] [place] [address] Care Team Providers Care Furnace Installer Helper Name Role Phone MunozRuth jerome Lilibeth JUAREZ Primary Care Provider + Reason for Visit * Reason Onset Date Comments Vaginal Issues 01/21/2020 Encounter Details Date Type Department Care Team (Late st Contact Info) Description 01/21/2020 Telephone [facility] OBGYN Services - [facility] [address] [place], [place] [address] Cici Barker NP 111 [facility], [address] [place] [address] Vaginal Issues Social History Tobacco [...] Info) Description 02/05/2025 11:00 EDT Office Visit [facility] Pelvic Medicine and Reconstructive Surgery - Medical Office [facility] [address] [place] [phone] Solange Garcia PA-C 2 [facility] Medical Office [facility], [address] [place] [phone] documented as of this encounter Visit Diagnoses Not on filedocumented in this encounter Care Teams Furnace Installer Helper Relationship Specialty Start Date End Date Ruth Munoz APRN 4 [facility] [place] [phone] PCP - General 04/26/19 06/19/23 documented as of this encounter
--- OUTSIDE RECORDS SUMMARY | 2024-09-18 16:04 | XMS_ITS | Encounter Summary ---
Author Organization [facility] Address [address] [place] [address] Care Team Providers Care Compliance Clerk Name Role Phone Ruth Munoz APRN Primary Care Provider + Katia Haywood Primary Care Provider [phone] Encounter Details Date Type Department Care Team (Late st Contact Info) Description 09/24/2020 Lab Requisition [facility] Pathology & Laboratory Medicine - [facility] [address] [place], [place] [address] Outr Resulting Lab, Provider Social History Tobacco [...] Info) Description 02/05/2025 11:00 EDT Office Visit [facility] Pelvic Medicine and Reconstructive Surgery - Medical Office Building [address] [phone] Solange Garcia PA-C [address] [place] [address] Medical Office [facility], [address] [address] documented as of this encounter Procedures Procedure Name Priority Date/Time Associated Diagnosis Comments VITAMIN D (25,OH) Routine 09/24/2020 17: 04 EST documented in this encounter Results * VITAMIN D (25,OH) (09/24/2020 17:04 EST) 25OH Vitamin D Tot 36.5 30.0 - 100.0 ng/mL 09/25/2020 11:07 EST [facility] Comment: Vitamin D 25,OH Interpretive Ranges: Deficiency: ??<10.0 ng/mL Insufficiency: ??10.0 - 30.0 ng/mL Sufficiency: ??30.0 - 100.0 ng/mL Toxicity: ??>100.0 ng/mL Blood VENOUS BLOOD / Unknown 09/24/2020 17:04 EST 09/24/2020 21:38 EST us Provider Outr Resulting Lab CHEMISTRY & BLOOD GA S ORDERABLES Final Result [facility] [address] [place] [address] documented in this encounter Visit Diagnoses Not on filedocumented in this encounter Care Teams Compliance Clerk Relationship Specialty Start Date End Date Ruth Munoz, LARRY [address] [place] [phone] PCP - General 04/26/19 06/19/23 Katia Haywood [address] [place] [phone] PCP - General Family Medicine - Primary Care 06/20/23 documented as of this encounter
--- OUTSIDE RECORDS SUMMARY | 2024-09-18 16:04 | XMS_ITS | Encounter Summary ---
Author Organization [facility] Address [address] [place] [address] Care Team Providers Care Animal Groomer Name Role Phone Ruth Munoz APRN Primary Care Provider + Katia Haywood Primary Care Provider [phone] Encounter Details Date Type Department Care Team (Late st Contact Info) Description 06/19/2020 Results Only Imaging [facility] Radiology Results [address] [place] [address] Shola Vazquez MD [address] [place] [address] [address] [place] [address] Social History Tobacco Use Types [...] Info) Description 02/05/2025 11:00 EDT Office Visit [facility] Pelvic Medicine and Reconstructive Surgery - Medical Office Building [facility] [address] [place] [address] Solange Garcia PA-C 2 [facility] Medical Office [facility], [address] [place] [address] documented as of this encounter Procedures Procedure Name Priority Date/Time Associated Diagnosis Comments MR HEAD WO CONTRAST 06/19/2020 1 4:56 EDT documented in this encounter Results * MR HEAD WO CONTRAST (06/19/2020 14:56 EDT) Anatomical Region Laterality Modality Head Magnetic Resonan ce 06/19/2020 14:5 6 EDT Narrative 06/19/2020 14:56 EDT ? EXAM: MAGNETIC RESONANCE IMAGING/INTERNAL EX. D/ (1919) ? CLINICAL INFORMATION: ? 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 Transcribed Date/Time: 06/19/2020 (8186) ? Telephone Maintenance Mechanic: ? Printed Date/Time: 06/19/2020 (9408) ? PAGE 1 ? Signed Report ? Procedure Note Galdino Ornelas MD - 06/19/2020 EXAM: MAGNETIC RESONANCE IMAGING/INTERNAL EX. D/ (1918) CLINICAL INFORMATION: H90.B50-[id number] HEARING LOSS OF LEFT EAR WITH RESTRICTEDHEARING [...] CC: Shola Vazquez MD Transcribed Date/Time: 06/19/2020 (1496) Telephone Maintenance Mechanic: Printed Date/Time: 06/19/2020 (8816) PAGE 1 Signed Report Shola Vazquez MD IMG MRI ORDERABLES Final Resu lt documented in this encounter Visit Diagnoses Not on filedocumented in this encounter Care Teams Animal Groomer Relationship Specialty Start Date End Date uRth Munoz APRN [address] [place] [address] PCP - General 04/26/19 06/19/23 Katia Haywood [address] [place] [address] PCP - General Family Medicine - Primary Care 06/20/23 documented as of this encounter
--- OUTSIDE RECORDS SUMMARY | 2024-09-18 16:04 | XMS_ITS | Encounter Summary ---
Author Organization [facility] Address [address] [place] [address] Care Team Providers Care Clinical Phlebotomist Name Role Phone Ruth Munoz SHIP'S ENGINEER Primary Care Provider + Reason for Visit * Reason Comments New Patient Visit * Referral (Routine) - Receiving Office to Obtain Authorization Specialty Diagnoses / Procedures Referred By Patricio monsivais Referred To Contact Pelvic Medicine Diagnoses Unspecified symptoms and signs involving the genitourinary system Ruth Munoz, SHIP'S ENGINEER [address] [place] [address] Phone: tel: fax: [facility] Pelvic Medicine and Reconstructive Surgery - Medical Office [address] [address] Phone: tel: fax: Referral ID Status Reason Start Date Expiration Date Visits Requested Visits Authorized [id number] Receiving Office to Obtain Authorization 1 1 Encounter Details Date Type Department Care Team (Latest Contact Info) Description 02/25/2021 9:15 EDT Telemedicine [facility] Pelvic Medicine and Reconstructive Surgery - Medical Office [address] [address] Chelsi Rivera MD [address] [place] [address] Medical Office Building, [address] [phone] History of urinary hesitancy (Primary Dx) Social [...] days prior to the procedure date 03/09/21 [facility] The appointment will begin with reviewing [...] need to reschedule you appointment, please call [phone] Urodynamics Discharge Instructions You have just completed [...] is normal. 4. Please notify our office ([phone]) if you experience ??? Persistent irritable voiding after the first 24 hours ??? A large amount of bleeding or clots in your urine ??? Fever greater than 101?? documented in this encounter Progress Notes * Chelsi Rivera MD - 02/25/2021 0915 EDT [facility] FEMALE EXAMINATION Patient: Martha Benoit is [...] application used to conduct the visit was ZOOM. HPI 55 yo P4 with sudden change in urinary stream in October 2020. Pt noted diminished stream, no vaginal prolapse symptoms. Pt is concerned this may be related to her worsening undiagnosed Neurologic disease. Neurology patient at [facility] for years and has been told she has a genetic, progressively worsening neurologic condition. Pt states she was exposed to toxic sprays when playing in the [employer] as a child. As a teen, she [...] ??? Diabetes Sister ??? Heart Disease Sister [place] at age 42 = ??? Diabetes Mother [...] file Gets together: Not on file Attends moravian service: Not on file Active member of [...] prolapse mentioned on recent exams with [facility] providers. Vitals There were no vitals taken [...] Pt advised to contact her Neurologist at [facility] of new symptoms. Plan F/U for exam [...] and Reconstructive Surgery - Medical Office Building [facility] [address] [place] [phone] Solange Garcia PA-C [address] [place] [address] Medical Office [facility], [address] [place] [phone] documented as of this encounter Visit Diagnoses Diagnosis History of urinary hesitancy- Primary documented in this encounter Care Teams Clinical Phlebotomist Relationship Specialty Start Date End Date Ruth Munoz APRN 4 [place] [phone] PCP - General 04/26/19 06/19/23 documented as of this encounter
--- OUTSIDE RECORDS SUMMARY | 2024-09-18 16:04 | XMS_ITS | Encounter Summary ---
Author Organization [facility] Address [address] [place] [address] Care Team Providers Care Insurance Sales Producer Name Role Phone Ruth Munoz APRN Primary Care Provider + Reason for Visit * Reason Comments Follow-up Encounter Details Date Type Department Care Team (Late st Contact Info) Description 02/25/2020 10:00 EDT Telemedicine [facility] - [address] [address] Edwige Keller, [address] [place] [address] Type 2 diabetes mellitus with diabetic polyneuropathy, with long-term current use of insulin ([facility]) (Primary Dx); Pre-ulcerative calluses Social History Tobacco [...] in this encounter Progress Notes * Edwige Keller DPM - 02/25/2020 1000 EDT Images from the original note were not included. Podiatry Telephone visit This visit was completed by phone. Edwige Keller DPM Date of conversation: 02/25/20 Patient phone number: [...] receive a return call, she should call [phone]. She has not been seen in our office for the past 7 days. The patient is at home. I am conducting this visit fromOur clinic at [facility] in [facility] while connected to the patient's medial record in [employer] computer. Chief Complaint: No chief complaint on [...] polyneuropathy, with long-term current use of insulin ([facility]) Yes ??? Pre-ulcerative calluses Plan: Ms. Benoit [...] Medicine and Reconstructive Surgery - Medical Office [address] [address] Solange Garcia PA-C 2 [facility] Medical Office [facility], [address] [phone] documented as of this encounter Visit Diagnoses Diagnosis Type 2 diabetes mellitus with diabetic polyneuropathy, with long-term current use of insulin ([facility])- Primary Pre-ulcerative calluses Corns and callosities documented in this encounter Care Teams Insurance Sales Producer Relationship Specialty Start Date End Date Ruth Munoz APRN [address] [place] [phone] PCP - General 04/26/19 06/19/23 documented as of this encounter
--- OUTSIDE RECORDS SUMMARY | 2024-09-18 16:04 | XMS_ITS | Encounter Summary ---
Author Organization [facility] Address [address] [place] [address] Care Team Providers Care Support Technician Name Role Phone AlexanderAidanantony Mcelroy APRN Primary Care Provider + Reason for Visit * Reason Comments Foot Problem Encounter Details Date Type Department Care Team (Late st Contact Info) Description 01/07/2021 10:30 EDT Office Visit [facility] Foot & Ankle Program - [address] [phone] Edwige Keller, [address] [place] [address] Pre-ulcerative calluses (Primary Dx); Type 2 diabetes mellitus with diabetic polyneuropathy, with long-term current use of insulin ([facility]) Social History Tobacco Use Types Packs/Day Years [...] Date Noted ??? Diabetes mellitus ([facility]) 08/11/2014 Priority: Medium ??? Vitamin D deficiency 01/28/2010 ??? Morbid obesity ([facility]) 01/22/2010 ??? Mild dysplasia of cervix ([facility] [...] ??? Diabetes Sister ??? Heart Disease Sister CT at age 42 = ??? Diabetes Mother [...] long-term current use of insulin ([facility]) No orders of the defined types were [...] prepared with speech recognition software or keyboard lead data entry operator techniques. Minor irregularities or keyboarding misprints may be present documented in this encounter Plan of Treatment Upcoming Encounters Date Type Department Care Team (Late st Contact Info) Description 02/05/2025 11:00 EDT Office Visit [facility] Pelvic Medicine and Reconstructive Surgery - Medical Office Building [address] [address] Solange Garcia PA-C 2 [facility] Medical Office [facility], [address] [address] documented as of this encounter Visit Diagnoses Diagnosis Pre-ulcerative calluses- Primary Corns and callosities Type 2 diabetes mellitus with diabetic polyneuropathy, with long-term current use of insulin ([facility]) documented in this encounter Care Teams Support Technician Relationship Specialty Start Date End Date Ruth Munoz, RESEARCH ASSISTANT [address] [place] [phone] PCP - General 04/26/19 06/19/23 documented as of this encounter
--- OUTSIDE RECORDS SUMMARY | 2024-09-18 16:04 | XMS_ITS | Encounter Summary ---
Author Organization [facility] Address [address] [place] [address] Care Team Providers Care Manager Valuation Name Role Phone Ruth Munoz Lilibeth JUAREZ [...] Info) Description 02/05/2025 11:00 EDT Office Visit [facility] Pelvic Medicine and Reconstructive Surgery - Medical Office Building [facility] [address] [place], [place] [address] Solange Garcia PA-C 792 [facility] Medical Office Building, [address] [place] [phone] documented as of this encounter Visit Diagnoses Not on filedocumented in this encounter Care Teams Manager Valuation Relationship Specialty Start Date End Date Ruth Munoz, LARRY 4 [facility] [place] [phone] PCP - General 04/26/19 06/19/23 documented as of this encounter
--- OUTSIDE RECORDS SUMMARY | 2024-09-18 16:04 | XMS_ITS | Encounter Summary ---
Author Organization [facility] Address [address] [place] [address] Care Team Providers Care University Extension Specialist Name Role Phone Ruth Munoz Lilibeth JUAREZ Primary Care Provider + Reason for Visit * Reason Onset Date Comments Other 04/01/2020 Encounter Details Date Type Department Care Team (Late st Contact Info) Description 04/01/2020 Telephone [facility] OBGYN Services - [facility] [address] [place] [address] Angelica Butts RN Other Social History Tobacco [...] due to Robertson virus. I will request [facility] staff to mail the 12/25/19 letter, written [...] Description 02/05/2025 11:00 EDT Office Visit [facility] Pelvic Medicine and Reconstructive Surgery - Medical Office Building [facility] [address] [place] [phone] Solange Garcia PA-C 2 [facility] Medical Office [facility], [address] [phone] documented as of this encounter Visit Diagnoses Not on filedocumented in this encounter Care Teams University Extension Specialist Relationship Specialty Start Date End Date Ruth Munoz APRN [address] [place] [phone] PCP - General 04/26/19 06/19/23 documented as of this encounter
--- OUTSIDE RECORDS SUMMARY | 2024-09-18 16:04 | XMS_ITS | Encounter Summary ---
Author Organization [facility] Address [address] [place] [address] Care Team Providers Care Collision Repair Technician Name Role Phone MunozRuth jerome Lilibeth JUAREZ [...] Description 02/05/2025 11:00 EDT Office Visit [facility] Pelvic Medicine and Reconstructive Surgery - Medical Office Building [facility] [address] [place] [address] Solange Garcia PA-C 792 [facility] Office [facility], [address] [phone] documented as of this encounter Visit Diagnoses Not on filedocumented in this encounter Care Teams Collision Repair Technician Relationship Specialty Start Date End Date Ruth Munoz, MI[employer]OS[employer]FT BI DEVELOPER [address] [place] [address] PCP - General 04/26/19 06/19/23 documented as of this encounter
--- OUTSIDE RECORDS SUMMARY | 2024-09-18 16:04 | XMS_ITS | Encounter Summary ---
Author Organization [facility] Address [address] [place] [address] Care Team Providers Care Lead Process Engineer Name Role Phone Ruth Munoz Lilibeth JUAREZ [...] 11:00 EDT Office Visit [facility] Pelvic Medicine and Reconstructive Surgery - Medical Office Building [facility] [address] [place], [place] [phone] Solange Garcia PA-C 792 [facility] Medical Office Building, [address] [place] [phone] documented as of this encounter Visit Diagnoses Not on filedocumented in this encounter Care Teams Lead Process Engineer Relationship Specialty Start Date End Date Ruth Munoz, LARRY 4 [facility] [place] [phone] PCP - General 04/26/19 06/19/23 documented as of this encounter
--- OUTSIDE RECORDS SUMMARY | 2024-09-18 16:04 | XMS_ITS | Encounter Summary ---
Author Organization [facility] Address [address] [place] [address] Care Team Providers Care Flag Car Driver Name Role Phone MunozAidanantony Mcelroy APRN Primary Care Provider + Reason for Visit * Reason Onset Date Comments Prior Auth, Medication 12/20/2019 Encounter Details Date Type Department Care Team (Late st Contact Info) Description 12/20/2019 Telephone [facility] Reproductive Medicine [facility] Inf[facility] [address] [place] [address] Haily Hull, BRENDAN [address] [place] [address] Prior Auth, Medication Social History Tobacco Use [...] Encounter - Haily Hull RN - 12/20/2019 1578 EST Images from the original note were [...] 02/05/2025 11:00 EDT Office Visit [facility] Pelvic Medicine and Reconstructive Surgery - Medical Office Building [facility] [address] [place] [phone] Solange Garcia PA-C [address] [place] [address] Medical Office [facility], [address] [phone] documented as of this encounter Visit Diagnoses Not on filedocumented in this encounter Care Teams Flag Car Driver Relationship Specialty Start Date End Date Ruth Munoz, RISK DEVELOPER 4 [place] [phone] PCP - General 04/26/19 06/19/23 documented as of this encounter
--- OUTSIDE RECORDS SUMMARY | 2024-09-18 16:04 | XMS_ITS | Encounter Summary ---
Author Organization [facility] Address [address] [place] [address] Care Team Providers Care Client Service Coordinator Name Role Phone Ruth Munoz APRN Primary Care Provider + Katia Haywood Primary Care Provider [phone] Encounter Details Date Type Department Care Team (Walter Monika Info) Description 02/04/2020 Lab Requisition [facility] Pathology & Laboratory Medicine - [facility] [address] [place] [address] Unknown, Provider, Social History Tobacco Use Types [...] and Reconstructive Surgery - Medical Office Building [facility] [address] [place] [address] Solange Garcia PA-C 792 [facility] Medical Office Building, [address] [place] [address] documented as of this encounter Procedures Procedure Name Priority Date/Time Associated Diagnosis Comments VITAMIN D (25,OH) Routine 02/04/2020 11: 38 EDT documented in this encounter Results * (ABNORMAL) VITAMIN D (25,OH) (02/04/2020 11:38 EDT) 25OH Vitamin D Tot 28.1(L) 30.0 - 100.0 ng/mL 02/07/2020 12:32 EDT [facility] Comment: Vitamin D 25,OH Interpretive Ranges: Deficiency: ??<10.0 ng/mL Insufficiency: ??10.0 - 30.0 ng/mL Sufficiency: ??30.0 - 100.0 ng/mL Toxicity: ??>100.0 ng/mL Blood VENOUS BLOOD / Unknown 02/04/2020 11:38 EDT 02/04/2020 21:31 EDT us Provider Unknown CHEMISTRY & BLOOD GAS ORDERA BLES Final Result [facility] [address] [place] [address] documented in this encounter Visit Diagnoses Not on filedocumented in this encounter Care Teams Client Service Coordinator Relationship Specialty Start Date End Date Ruth Munoz APRN [address] [place] [phone] PCP - General 04/26/19 06/19/23 Katia Haywood [address] [place] [phone] PCP - General Family Medicine - Primary Care 06/20/23 documented as of this encounter
--- OUTSIDE RECORDS SUMMARY | 2024-09-18 16:04 | XMS_ITS | Encounter Summary ---
Author Organization [facility] Address [address] [place] [address] Care Team Providers Care Brush Cleaner Name Role Phone AlexanderAidanatnony Mcelroy APRN Primary Care Provider + Reason for Visit * Reason Onset Date Comments Results 12/20/2019 Encounter Details Date Type Department Care Team (Late st Contact Info) Description 12/20/[address] [facility] OBGYN Services - [facility] [address] [place], [place] [address] Cici Barker NP 111 [facility], [address] [place] [address] Results Social History Tobacco Use [...] Refills Last Filled Start Date End Date terconazole (TERAZOL 3) [address] 1 Suppository vaginally daily. For 6 nights 6 Suppository 0 05/01/20 20 metroNIDAZOLE (FLAGYL) 500 mg tablet Take 1 Tab by mouth 2 times daily for 7 days. 14 Tab 0 12/27/19 20 documented in this encounter Miscellaneous Notes * [...] 11:00 EDT Office Visit [facility] Pelvic Medicine and Reconstructive Surgery - Medical Office Building [facility] [address] [place] [address] Solange Garcia PA-C 792 [facility] Medical Office [facility], [address] [phone] documented as of this encounter Visit Diagnoses Not on filedocumented in this encounter Care Teams Brush Cleaner Relationship Specialty Start Date End Date Ruth Munoz, LARRY [address] [place] [phone] PCP - General 04/26/19 06/19/23 documented as of this encounter
--- OUTSIDE RECORDS SUMMARY | 2024-09-18 16:04 | XMS_ITS | Encounter Summary ---
Author Organization [facility] Address [address] [place] [address] Care Team Providers Care Clinical Esthetician Name Role Phone MunozAidan jeromeantony Mcelroy APRN Primary Care Provider + Reason for Visit * Reason Onset Date Comments Pre-visit Orders 03/25/2021 Encounter Details Date Type Department Care Team (Late st Contact Info) Description 03/25/2021 Telephone [facility] Pelvic Medicine and Reconstructive Surgery - Medical Office [facility] [address] [place], [place] [phone] Lucille Montero RN Pre-visit Orders Social History [...] placed to patient and notified her that [facility] did not have specimen. Patient report [...] - 03/30/2021 0950 EDT Call placed to [facility] lab for U/A results. Patient has not gone in for urine collection. Call placed to patient and no answer. Left message for her to call back. LUCILLE MONTERO RN 03/30/2021 9:53 * Telephone Encounter - Lucille Montero RN - 03/25/2021 1646 EDT Call placed to [facility] lab and confirmed they received patient lab [...] 02/05/2025 11:00 EDT Office Visit [facility] Pelvic Medicine and Reconstructive Surgery - Medical Office [address] [address] Solange Garcia PA-C [address] [place] [address] Medical Office [facility], [address] [phone] documented as of this encounter Visit Diagnoses Not on filedocumented in this encounter Care Teams Clinical Esthetician Relationship Specialty Start Date End Date Ruth Munoz APRN [address] [place] [phone] PCP - General 04/26/19 06/19/23 documented as of this encounter
--- OUTSIDE RECORDS SUMMARY | 2024-09-18 16:04 | XMS_ITS | Encounter Summary ---
Author Organization [facility] Address [address] [place] [address] Care Team Providers Care Backend Java Developer Name Role Phone Ruth Munoz Lilibeth JUAREZ Primary Care Provider + Reason for Visit * Reason Comments Other bump left side vagin al area Encounter Details Date Type Department Care Team (Late st Contact Info) Description 04/30/2020 15:30 EDT Office Visit [facility] OBGYN Services - [address] [phone] Kassie Carreon PA-C [address] [place] [address], [address] [place] [address] Vulvar cyst (Primary Dx); HPV [...] as shetravel[place] a ways to get to [place], does not want to make 2 trips. ?? History of STDs: HPV only.Full STI screening done last year, negative. Otherwise, no reading efficiency course director complaints. Does not want to have mammograms, as a mammogram in the past led to a scare where she states she was told that she would need a mastectomy, but denies having had a breast biopsy. Patient Active Problem List Diagnosis ??? Mild dysplasia of cervix ([facility] I) ??? Morbid obesity (HCC-CMS) ??? Vitamin D deficiency ??? Diabetes mellitus (HCC-CMS) Past Medical History: Diagnosis Date ??? Unspecified cerebral artery occlusion with cerebral infarction Past Surgical History: Procedure Laterality Date ??? CERVIX LESION DESTRUCTION 07/15/2009 ??? GASTRIC BYPASS SURGERY 01/04/16 ??? LEEP 07/15/2009 ??? TUBAL LIGATION Family History Problem Relation Age of Onset ??? Colon Cancer Father ??? Diabetes Father ??? Stroke Father ??? Cervical Cancer Sister ??? Diabetes Sister ??? Heart Disease Sister [place] at age 42 = ??? Diabetes Mother [...] on phone: None Gets together: None Attends jewish service: None Active member of club or [...] ??? Diabetes Sister ??? Heart Disease Sister [place] at age 42 = ??? Diabetes Mother [...] file Gets together: Not on file Attends jewish service: Not on file Active member of [...] Anxious Abdomen: Soft, non-tender, no masses palpated DELI DEPARTMENT MANAGER: Right labia without masses, left labia minora with small, approximately [id number] white-yellow cyst with discharge, normal introitus,erythema to [...] 11:00 EDT Office Visit [facility] Pelvic Medicine and Reconstructive Surgery - Medical Office Building [address] [address] Solange Garcia PA-C [address] [place] [address] Medical Office [facility], [address] [phone] documented as of this encounter [...] 16, PCR Negative Negative 05/14/2020 15:13 EDT [facility] HPV18/45 RNA (HPV18/45) Positive(A) Negative 05/14/2020 15:13 EDT [facility] Papanicolaou smear specimen (specimen) CERVIX UTERI STRUCTURE / Unknown 04/30/2020 16:15 EDT 05/07/2020 14:16 EDT Kassie Carreon PA-C MICROBIOLOGY - GENERAL ORDERABLES Final Result Performing Organization Address [facility] Co de Phone Number [facility] [address] [place] [address] * (ABNORMAL) HUMAN PAPILLOMAVIRUS (HPV) DETECTION-HIGH RISK TYPES (04/30/2020 16:15 EDT) HPV other High Risk types, PCR Positive( A) Negative 05/14/2020 15:13 EDT [facility] Comment:E6 OR E7 mRNA from o ne or more types of HPV types 16,18,31,33,35,39,45,51,52,56,58,59,66, and 68 is detected by quarter trimmer mediated amplification. High and intermediate risk HPV types are associated with most squamous intraepithelial lesions and cervical cancers. Papanicolaou smear specimen (specimen) CERVIX UTERI STRUCTURE / Unknown 04/30/2020 16:15 EDT 05/07/2020 14:16 EDT Kassie Carreon PA-C MICROBIOLOGY - GENERAL ORDERABLES Final Result Performing Organization Address [facility] Co de Phone Number [facility] [address] [place] [address] * PAP TEST (04/30/2020 16:15 EDT) Amendment Comment Please review Amended Genotypes 16 & 18/45 results below. 05/26/2022 15:52 EDT [facility] Specimens A. Cervix and/or Endocervix , ThinPrep Imaging System with Manual Evaluation 05/26/2022 15:52 EDT [facility] Specimen Adequacy Satisfactory for Evaluation - transformation zone component present 05/26/2022 15:52 EDT [facility] General Categorization Negative for intraepithelial lesion or malignancy 05/26/2022 15:52 EDT [facility] Descriptive Diagnosis Reactive cellular changes associated with inflammation present (includes repair). 05/26/2022 15:52 EDT [facility] Attestation By the signature below, the attending physician certifies that they have personally conducted a gross and/or microscopic examination of the described specimens and rendered or confirmed the above diagnosis. 05/26/2022 15:52 EDT [facility] Amendment electronically signed by Nayn Chris SCT(ASCP) on 05/26/2022 at 1552 at 1513 Clinical History History of persistent HPV, follow up. 05/26/2022 15:52 EDT [facility] HPV The result for the Human Papillomavirus (HPV) Detection-High Risk Types is Positive . E6 OR E7 mRNA from one or more types of HPV types 16,18,31,33,35,39 ,45,51,52,56,58,5 9,66, and 68 is detected by quarter trimmer mediated amplification. High and intermediate risk HPV types are associated with most squamous intraepithelial lesions and cervical cancers. Testing was performed on specimen [id number] and was resulted on 05/08/2020 1514 EDT by GODFREY, LAB INSTRUMENT RESULTS IN 05/26/2022 15:52 EDT [facility] Genotyping 16 & 18/45 The results for the HPV Genotypes 16 and 18/45 are Negative for the HPV16 RNA and Positive for the HPV18/45 RNA (HPV18/45) . Testing was performed on specimen [id number] and was resulted on 05/14/2020 1440 EDT by GODFREY, LAB INSTRUMENT RESULTS IN 05/26/2022 15:52 EDT [facility] Scanned Images 05/26/2022 15:52 EDT [facility] Papanicolaou smear specimen (specimen) CERVIX UTERI STRUCTURE / Unknown 04/30/2020 16:15 EDT 05/01/2020 10:46 EDT us Kassie Carreon PA-C PATHOLOGY ORDERABLES E dited Result - Final [facility] [address] [place] [address] documented in this encounter Visit Diagnoses Diagnosis [...] may reflect changes made after this encounter. adalimumab (HUMIRA,CF, SUBQ)Indications: takes every other week not sure of dose Inject into the skin. 01/08/2024 added in this encounter Care Teams Backend Java Developer Relationship Specialty Start Date End Date Ruth Munoz, LARRY [address] [place] [phone] PCP - General 04/26/19 06/19/23 documented as of this encounter
--- OUTSIDE RECORDS SUMMARY | 2024-09-18 16:04 | XMS_ITS | Encounter Summary ---
Author Organization [facility] Address [address] [place] [address] Care Team Providers Care Ice Cutter Name Role Phone Ruth Munoz Lilibeth JUAREZ Primary Care Provider + Reason for Visit * Reason Onset Date Comments Prior Auth, Medication 01/21/2020 Encounter Details Date Type Department Care Team (Late st Contact Info) Description 01/21/2020 Telephone [facility] OBGYN Services - [facility] [address] [place], [place] [phone] Cathy Cook RN Prior Auth, Medication Social [...] because boric acid is not covered by [place] Medicaid. Will complete an exception to coverage form. One page needs to be completed by the patient. She asked that the form be mailed to her PO Box, and I placed it in the outgoing mail today. Asked her to scan and email to me, or mail back to the office. Advised that she pickler helper the 14 day course of boric acid today and pay out of pocket, and we will attempt to get an exception to coverage for the 6 month course. * Telephone Encounter - Cathy Cook RN - 01/21/2020 1410 EDT Martha LVM: RTC from nurse re: PA for medication, would like to pickler helper med today. NOTE: PA for Boric acid denied, sent to Dr. Vargas & Cici Barker. documented in this encounter Plan of Treatment Upcoming Encounters Date Type Department Care Team (Late st Contact Info) Description 02/05/2025 11:00 EDT Office Visit [facility] Pelvic Medicine and Reconstructive Surgery - Medical Office Building [address] [address] Solange Garcia PA-C 2 [facility] Office [facility], [address] [phone] documented as of this encounter Visit Diagnoses Not on filedocumented in this encounter Care Teams Ice Cutter Relationship Specialty Start Date End Date Ruth Munoz, LABELING STRATEGIST [address] [place] [phone] PCP - General 04/26/19 06/19/23 documented as of this encounter
--- OUTSIDE RECORDS SUMMARY | 2024-09-18 16:04 | XMS_ITS | Encounter Summary ---
Author Organization [facility] Address [address] [place] [address] Care Team Providers Care Green Tire Inspector Name Role Phone AlexanderAidanantony Mcelroy APRN Primary Care Provider + Reason for Visit * Reason Onset Date Comments Coordination Of Care 04/02/2020 Encounter Details Date Type Department Care Team (Late st Contact Info) Description 04/02/2020 Telephone [facility] OBGYN Services - [facility] [address] [place], [place] [phone] Cici Barker, POLO [address] [facility], [facility] [address] [place] [address] Coordination Of Care Social History [...] encounter Miscellaneous Notes * Telephone Encounter - GauravLatashaie - 04/02/2020 1427 EDT Sent letter to patient from Cici Barker - addressed to patient @ [address] [place] [address]. documented in this encounter Plan of Treatment Upcoming Encounters Date Type Department Care Team (Late st Contact Info) Description 02/05/2025 11:00 EDT Office Visit [facility] Pelvic Medicine and Reconstructive Surgery - Medical Office Building [facility] [address] [place] [id number] Solange Garcia PA-C 2 [facility] Medical Office [facility], [address] [phone] documented as of this encounter Visit Diagnoses Not on filedocumented in this encounter Care Teams Green Tire Inspector Relationship Specialty Start Date End Date Ruth Munoz APRN 4 [place] [phone] PCP - General 04/26/19 06/19/23 documented as of this encounter
--- OUTSIDE RECORDS SUMMARY | 2024-09-18 16:04 | XMS_ITS | Encounter Summary ---
Author Organization [facility] Address [address] [place] [address] Care Team Providers Care Electronics Inspector Name Role Phone MunozRuth jerome Lilibeth JUAREZ Primary Care Provider + Reason for Visit * Reason Onset Date Comments Other 07/13/2020 Encounter Details Date Type Department Care Team (Late st Contact Info) Description 07/13/[address] [facility] ENT [address] [place] [address] Shola Vazquez MD [address] [place] [address] 31 [place] [address] Other Social History Tobacco Use [...] Info) Description 02/05/2025 11:00 EDT Office Visit [facility] Pelvic Medicine and Reconstructive Surgery - Medical Office [address] [address] Solange Garcia PA-C 2 [facility], [address] [phone] documented as of this encounter Visit Diagnoses Not on filedocumented in this encounter Care Teams Electronics Inspector Relationship Specialty Start Date End Date Ruth Munoz APRN [address] [place] [address] [place] [phone] PCP - General 04/26/19 06/19/23 documented as of this encounter
--- OUTSIDE RECORDS SUMMARY | 2024-09-18 16:04 | XMS_ITS | Encounter Summary ---
Author Organization [facility] Address [address] [place] [address] Care Team Providers Care Nuclear Medicine Tech Name Role Phone Ruth Munoz APRN Primary Care Provider + Reason for Visit * Reason Onset Date Comments Appointment Related 01/31/2020 Encounter Details Date Type Department Care Team (Late st Contact Info) Description 01/31/[address] [facility] Foot & Ankle Program - [address] [phone] Edwige Keller, DP [address] [place] [address] Appointment Related Social History Tobacco [...] Visit [facility] Pelvic Medicine and Reconstructive Surgery - Medical Office [address] [address] Solange Garcia PA-C [address] [place] [address] Medical Office [facility], [address] [phone] documented as of this encounter Visit Diagnoses Not on filedocumented in this encounter Care Teams Nuclear Medicine Tech Relationship Specialty Start Date End Date Ruth Munoz APRN 4 [place] [address] PCP - General 04/26/19 06/19/23 documented as of this encounter
--- OUTSIDE RECORDS SUMMARY | 2024-09-18 16:04 | XMS_ITS | Encounter Summary ---
Author Organization [facility] Address [address] [place] [address] Care Team Providers Care Edge Burnisher Uppers Name Role Phone Ruth Munoz APRN Primary [...] Ear fullness Ear pain, left Ruth Munoz, LARRY 4 [place] [address] Phone: tel: fax: Shola Vazquez MD Phone: tel: fax: Referral ID Status Reason Start Date Expiration Date Visits Re quested Visits Authorized [id number] Closed 1 1 Encounter Details Date Type Department Care Team (Latest Contact Info) Description 05/13/2020 13:40 EDT Office Visit [facility] ENT - [place] [address] [place] [address] Shola Vazquez MD 130 [facility] [address] [place] [address] Sensorineural hearing loss (SNHL) of [...] documented in this encounter Progress Notes * Shola Vazquez [...] and Reconstructive Surgery - Medical Office Building [facility] [address] [place] [address] Solange Garcia PA-C [address] [place] [address] Medical Office [facility] [address], [facility] [address] [place] [address] documented as of this encounter Visit Diagnoses Diagnosis Sensorineural hearing loss (SNHL) of left ear with restricted hearing of right ear- Primary documented in this encounter Care Teams Edge Burnisher Uppers Relationship Specialty Start Date End Date Ruth Munoz, CDL BULK DRIVER [address] [place] [phone] PCP - General 04/26/19 06/19/23 documented as of this encounter
--- OUTSIDE RECORDS SUMMARY | 2024-09-18 16:04 | XMS_ITS | Encounter Summary ---
Author Organization [facility] Address [address] [place] [address] Care Team Providers Care Naval Architect Specialist Name Role Phone Ruth Munoz WAX MOLDER Primary Care Provider + Reason for Visit * Reason Comments Otalgia * Referral (Routine) - Receiving Office to Obtain Authorization Specialty Diagnoses / Procedures Referred By Patricio monsivais Referred To Contact Otolaryngology Diagnoses Otalgia, left ear Ruth Munoz, WAX MOLDER [address] [place] [address] Phone: tel: fax: [facility] ENT [address] [place] [address] Phone: tel: Referral ID Status Reason Start Date Expiration Date Visits Requested Visits Authorized [id number] Receiving Office to Obtain Authorization 1 1 Encounter Details Date Type Department Care Team (Late st Contact Info) Description 05/04/2021 10:00 EDT Audiology [facility] ENT [address] [place] [address] Purvi Butts, AuD [address] [place] [address] Sensorineural hearing loss (SNHL) of [...] documented in this encounter Progress Notes * Purvi Butts, Destini - 05/04/2021 1000 EDT HPI: The patient [...] referring provider as recommended -Follow up with assistant controller as recommended Notes: Previous chart notes indicate an MRI was scheduled to assess the internal auditory canalS and that the patient was recommended to see a neurologist documented in this encounter Plan of Treatment Upcoming Encounters Date Type Department Care Team (Late st Contact Info) Description 02/05/2025 11:00 EDT Office Visit [facility] Pelvic Medicine and Reconstructive Surgery - Medical Office Building [facility] [address] [place] [address] Solange Garcia PA-C 2 [facility] Medical Office [facility], [address] [place] [phone] documented as of this encounter Visit Diagnoses Diagnosis Sensorineural hearing loss (SNHL) of left ear with restricted hearing of right ear- Primary documented in this encounter Care Teams Naval Architect Specialist Relationship Specialty Start Date End Date Ruth Munoz APRN [address] [place] [phone] PCP - General 04/26/19 06/19/23 documented as of this encounter
--- OUTSIDE RECORDS SUMMARY | 2024-09-18 16:04 | XMS_ITS | Encounter Summary ---
Author Organization [facility] Address [address] [place] [address] Care Team Providers Care Rouge Sifter And Miller Name Role Phone AlexanderRuth Lilibeth JUAREZ Primary Care Provider + Reason for Visit * Reason Onset Date Comments Results 12/25/2019 Encounter Details Date Type Department Care Team (Late st Contact Info) Description 12/25/2019 Telephone [facility] OBGYN Services - [facility] [address] [place], [place] [address] Cici Barker NP 111 [facility], Level [address] [place] [address] Results Social History Tobacco Use [...] Refills Last Filled Start Date End Date Miscellaneous Medication - See Admin Instructions Place 600 mg vaginally at bedtime for 14 days. Please call patient when ready.[phone] 14 Each 12/25/2019 0 documented in this encounter Miscellaneous Notes * Telephone Encounter - Cici Barker APRN - 12/25/2019 1620 EST TC. Kelly glabrata. Med Orders Placed This Visit and Additions to the Medication List Medications ??? Miscellaneous Medication - See Admin Instructions Sig: Place 600 mg vaginally at bedtime for 14 days. Please call patient when ready.[phone] Dispense: 14 Each Refill: 0 difficulty getting compounded medication as she would be leaving tomorrow to go to [place] for cruise; feels raw. Needs medical note to cancel trip and have insurance cover. Sent. documented in this encounter Plan of Treatment Upcoming Encounters Date Type Department Care Team (Late st Contact Info) Description 02/05/2025 11:00 EDT Office Visit [facility] Pelvic Medicine and Reconstructive Surgery - Medical Office [address] [address] Solange Garcia PA-C 2 [facility] Medical Office [facility], [address] [phone] documented as of this encounter Visit Diagnoses Not on filedocumented in this encounter Care Teams Rouge Sifter And Miller Relationship Specialty Start Date End Date Ruth Munoz APRN [address] [place] [phone] PCP - General 04/26/19 06/19/23 documented as of this encounter
--- OUTSIDE RECORDS SUMMARY | 2024-09-18 16:04 | XMS_ITS | Encounter Summary ---
Author Organization [facility] Address [address] [place] [address] Care Team Providers Care Client Technologies Analyst Name Role Phone Alexander Ruthantony Mcelroy APRN Primary Care Provider + Reason for Visit * Reason Onset Date Comments Follow-up 01/21/2020 Encounter Details Date Type Department Care Team (Late st Contact Info) Description 01/21/2020 Telephone [facility] Reproductive Medicine & Infertility Center - [facility] [address] [place] [address] Haily Hull, BRENDAN [address] [place] [address] Follow-up Social History Tobacco Use Types Packs/Day [...] 02/05/2025 11:00 EDT Office Visit [facility] Pelvic Medicine and Reconstructive Surgery - Medical Office Building [facility] [address] [place] [address] Solange Garcia PA-C [address] [place] [address] Medical Office Building, [address] [place] [phone] documented as of this encounter Visit Diagnoses Not on filedocumented in this encounter Care Teams Client Technologies Analyst Relationship Specialty Start Date End Date Ruth Munoz, LARRY [address] [place] [phone] PCP - General 04/26/19 06/19/23 documented as of this encounter
--- OUTSIDE RECORDS SUMMARY | 2024-09-18 16:04 | XMS_ITS | Encounter Summary ---
Author Organization [facility] Address [address] [place] [address] Care Team Providers Care Minister Name Role Phone MunozRuth jerome Lilibeth JUAREZ Primary Care Provider + Reason for Visit * Reason Onset Date Comments Medication Management 01/30/2020 Encounter Details Date Type Department Care Team (Late st Contact Info) Description 01/30/2020 Telephone [facility] OBGYN Services - [facility] [address] [place] [address] Angelica Butts RN Medication Management Social History [...] Encounter - Haily Hull RN - 01/30/2020 1344 EDT Received paperwork from Martha via fax. Mailed Medicaid Exemption form, and attending physician's statement (for the cruise) today. * Telephone Encounter - Haily Hull RN - 01/30/2020 0948 EDT Returned call to Martha. She reports she only got an additional 14 boric acid suppositories, insteadof the 6 month supply. A call to [facility] reveals that they received [...] RN - 01/30/2020 0920 EDT Call from ptEdvin JAMIL had question r/t boric acidlength of time. Also, states missed a cruise and insurance needs more updated information.Asking for name of provider and fax number. documented in this encounter Plan of Treatment Upcoming Encounters Date Type Department Care Team (Late st Contact Info) Description 02/05/2025 11:00 EDT Office Visit [facility] Pelvic Medicine and Reconstructive Surgery - Medical Office [facility] [address] [place] [address] Solange Garcia PA-C [address] [facility] Building, [address] [place] [address] documented as of this encounter Visit Diagnoses Not on filedocumented in this encounter Care Teams Minister Relationship Specialty Start Date End Date Ruth Munoz, EARLY CHILDHOOD ASSOCIATE [address] [place] [phone] PCP - General 04/26/19 06/19/23 documented as of this encounter
--- OUTSIDE RECORDS SUMMARY | 2024-09-18 16:04 | XMS_ITS | Encounter Summary ---
Author Organization [facility] Address [address] [place] [address] Care Team Providers Care Fuel Pilot Engineer Name Role Phone MunozRuth jerome Lilibeth JUAREZ Primary Care Provider + Reason for Visit * Reason Onset Date Comments Medication Management 12/24/2019 Encounter Details Date Type Department Care Team (Late st Contact Info) Description 12/24/2019 Telephone [facility] OBGYN Services - [facility] [address] [place] [address] Angelica Butts, chief credit officer Management Social History Tobacco Use Types Packs/Day [...] take the Diflucan. Patient also did not cotton picker the Flagyl yet. Patient expressed some [...] Medicine and Reconstructive Surgery - Medical Office [address] [address] Solange Garcia PA-C 2 [facility] Medical Office [facility], [address] [address] documented as of this encounter Visit Diagnoses Not on filedocumented in this encounter Care Teams Fuel Pilot Engineer Relationship Specialty Start Date End Date Ruth Munoz APRN 4 [place] [address] PCP - General 04/26/19 06/19/23 documented as of this encounter
--- OUTSIDE RECORDS SUMMARY | 2024-09-18 16:04 | XMS_ITS | Encounter Summary ---
Author Organization [facility] Address [address] [place] [address] Care Team Providers Care Melt Superintendant Name Role Phone AlexanderAidanantony Mcelroy APRN Primary Care Provider + Reason for Visit * Reason Onset Date Comments Vaginitis 01/20/2020 Encounter Details Date Type Department Care Team (Late st Contact Info) Description 01/20/2020 Telephone [facility] Reproductive Medicine & Infertility Center - [facility] [address] [place] [address] Haily Hull, BRENDAN [address] [place] [address] Vaginitis Social History Tobacco Use Types Packs/Day [...] Date Miscellaneous Medication - See Admin Instructions Boric acid capsules [address] one capsule vaginally HS x 14 days. Call patient when ready. 14 Each 01/20/2020 4 documented in this encounter Miscellaneous Notes * [...] ready. Dispense: 14 Each Refill: 0 to [facility] * Telephone Encounter - Haily Hull [...] Office Visit [facility] Pelvic Medicine and Reconstructive Surgery - Medical Office [facility] [address] [place] [address] Solange Garcia PA-C [address] [place] [address] Medical Office [facility], [address] [phone] documented as of this encounter Visit Diagnoses Not on filedocumented in this encounter Discontinued Medications Medication Sig Discontinue Reason Start Date End Da te Miscellaneous Medication - See Admin Instructions Boric acid capsules [address] vaginally HS x 14 12/27/2019 01/20/2020 documented as of this encounter Care Teams Melt Superintendant Relationship Specialty Start Date End Date Ruth Munoz, PANTS PRESSER [address] [place] [phone] PCP - General 04/26/19 06/19/23 documented as of this encounter
--- OUTSIDE RECORDS SUMMARY | 2024-09-18 16:04 | XMS_ITS | Encounter Summary ---
Author Organization [facility] Address [address] [place] [address] Care Team Providers Care Tree Topper Name Role Phone MunozRuth jerome Lilibeth JUAREZ Primary Care Provider + Reason for Visit * Reason Onset Date Comments Advice Only 08/12/2020 Encounter Details Date Type Department Care Team (Late st Contact Info) Description 08/12/2020 Telephone [facility] OBGYN Services - [facility] [address] [place], [place] [phone] Cici Barker NP 111 [facility], [address] [place] [address] Advice Only Social History Tobacco [...] HS twice weekly 80 Each 08/12/2020 4 fluconazole (DIFLUCAN) 150 mg tablet Take 1 Tab by mouth every 72 hours. 2 Tab 08/12/2020 4 documented in this encounter Miscellaneous Notes [...] Each Refill: 0 the fluconazole went to [facility], the boric acid went to [place] [facility]. Fluconazole can exacerbated the effect of her narcotic and cause respiratory depression. Take with extreme caution. * Telephone Encounter - Edwige Mendoza - 08/12/2020 0842 EDT Patient stopped taking boric acid because they felt their symptoms have resolved, but they have nowcome back. Patient was also wondering if they could have a fluconazole prescription. Patient pharmacy is [facility] [address] [place] [address] Patient can be reached at [phone] documented in this encounter Plan of Treatment Upcoming Encounters Date Type Department Care Team (Late st Contact Info) Description 02/05/2025 11:00 EDT Office Visit [facility] Pelvic Medicine and Reconstructive Surgery - Medical Office Building [address] [address] Solange Garcia PA-C [address] [place] [address] Medical Office [facility], [address] [phone] documented as of this encounter Visit Diagnoses Not on filedocumented in this encounter Discontinued Medications Medication Sig Discontinue Reason Start Date End Da te Miscellaneous Medication - See Admin Instructions Boric acid caps 600 mg each. Sig: insert vaginally HS twice weekly after 14 day treatment. Reorder 01/20/2020 08/12/2020 documented as of this encounter Care Teams Tree Topper Relationship Specialty Start Date End Date Ruth Munoz, LARRY [address] [place] [phone] PCP - General 04/26/19 06/19/23 documented as of this encounter
--- OUTSIDE RECORDS SUMMARY | 2024-09-18 16:04 | XMS_ITS | Encounter Summary ---
Author Organization [facility] Address [address] [place] [address] Care Team Providers Care Sewage Plant Attendant Name Role Phone UmnozAidanantony Mcelroy APRN Primary Care Provider + Reason for Visit * Reason Onset Date Comments Results 07/13/2020 Encounter Details Date Type Department Care Team (Late st Contact Info) Description 07/13/2020 Telephone [facility] General Surgery [address] [place] [address] Kelly Mesa MD [address] [place] [address] [address] [place] [address] Results Social History Tobacco Use [...] and Reconstructive Surgery - Medical Office Building [facility] [address] [place] [address] Solange Garcia PA-C 792 [facility], [address] [place] [address] documented as of this encounter Visit Diagnoses Not on filedocumented in this encounter Care Teams Sewage Plant Attendant Relationship Specialty Start Date End Date Ruth Munoz, BUS OPERATOR [address] [place] [address] PCP - General 04/26/19 06/19/23 documented as of this encounter
--- OUTSIDE RECORDS SUMMARY | 2024-09-18 16:04 | XMS_ITS | Encounter Summary ---
Author Organization [facility] Address [address] [place] [address] Care Team Providers Care Tin Dipper Name Role Phone MunozRuth jerome Lilibeth JUAREZ Primary Care Provider + Encounter Details Date Type Department Care Team (Late st Contact Info) Description 01/20/2020 Orders Only [facility] OBGYN Services - [facility] [address] [place], [place] [phone] Cici Barker, POLO 111 [facility], [address] [place] [address] Social History Tobacco Use Types [...] after 14 day treatment. 80 Each 01/20/2020 0 documented in this encounter Progress Notes * [...] 11:00 EDT Office Visit [facility] Pelvic Medicine and Reconstructive Surgery - Medical Office [address] [address] Solange Garcia PA-C [address] [place] [address] Office [facility], [address] [address] documented as of this encounter Visit Diagnoses Not on filedocumented in this encounter Care Teams Tin Dipper Relationship Specialty Start Date End Date Ruth Munoz APRN 4 [place] [address] PCP - General 04/26/19 06/19/23 documented as of this encounter
--- OUTSIDE RECORDS SUMMARY | 2024-09-18 16:04 | XMS_ITS | Encounter Summary ---
Author Organization [facility] Address [address] [place] [address] Care Team Providers Care Financial Service Rep Name Role Phone Ruth Munoz Lilibeth JUAREZ Primary Care Provider + Reason for Visit * Reason Comments Procedure colpo Encounter Details Date Type Department Care Team (Latest Contact Info) Description 07/08/2020 10:30 EDT Procedure visit [facility] OBGYN Services - [facility] [address] [place], [place] [id number] Lola Vargas MD 2 [facility] Medical Office Building, [address] [place] [address] Cervical high risk human papillomavirus [...] and Reconstructive Surgery - Medical Office Building [address] [address] Solange Garcia PA-C [address] [place] [address] Medical Office [facility], [address] [address] documented as of this encounter [...] - Fragments of benign endocervix. 07/10/2020 9:02 [facility] Diagnosis Comment The findings suggest chronic reactive changes in the setting of atrophy. Immunoperoxidase stains were performed on this case to further characterize the epithelial changes. ANTIBODY(CLONE)(BL OCK):RESULT P16 (E6H4TM, [place]) (A1): Not increased in the cells of [...] performance characteristics have been determined by [facility] and/or by the referring laboratory. The [...] high complexity clinical laboratory testing. 07/10/2020 9:02 [facility] Attestation There was significant resident/fellow involvement in the diagnostic evaluation of this case. By the signature below, the attending physician certifies that they have personally conducted a gross and/or microscopic examination of the described specimens and rendered or confirmed the above diagnosis. 07/10/2020 9:02 [facility] at 0902 Clinical History Persistent HPV positive 07/10/2020 9:02 [facility] Gross Description A. [...] ALFONSO BURCIAGA 07/08/2020 15:10 07/10/2020 9:02 EDT [facility] Resident/Jaison w: Raymon Barba, 07/10/2020 9:02 EDT [facility] Performing Lab [facility] 9:02 EDT [facility] Scanned Images 07/10/2020 9:02 EDT [facility] Tissue ENTIRE WALL OF CERVIX / Unknown Collection, Other / Unknown 07/08/2020 11:14 EDT 07/08/2020 14:48 EDT Tissue specimen (specimen) ENDOCERVICAL STRUCTURE / Unknown 07/08/2020 11:14 EDT 07/08/2020 14:48 EDT Lola Vargas MD PATHOLOGY ORDERABLES Final Result [facility] [address] [place] [address] documented in this encounter Visit Diagnoses Diagnosis Cervical 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- Primary documented in this encounter Care Teams Financial Service Rep Relationship Specialty Start Date End Date Ruth Munoz, DRAIN TECHNICIAN [address] [place] [address] PCP - General 04/26/19 06/19/23 documented as of this encounter
--- OUTSIDE RECORDS SUMMARY | 2024-09-18 16:04 | XMS_ITS | Encounter Summary ---
Author Organization [facility] Address [address] [place] [address] Care Team Providers Care C D Area Supervisor Name Role Phone Ruth Munoz Lilibeth JUAREZ Primary Care Provider + Reason for Visit * Reason Comments Follow-up mri Encounter Details Date Type Department Care Team (Latest Contact Info) Description 07/22/2020 9:40 EDT Office Visit [facility] [address] [place] [address] Shola Vazquez MD [address] [place] [address] [address] [place] [address] Sensorineural hearing loss (SNHL) of [...] Visit [facility] Pelvic Medicine and Reconstructive Surgery - Medical Office [address] [address] Solange Garcia PA-C 2 [facility] Office [facility], [address] [phone] documented as of this encounter Visit Diagnoses Diagnosis Sensorineural hearing loss (SNHL) of left ear with restricted hearing of right ear- Primary documented in this encounter Care Teams C D Area Supervisor Relationship Specialty Start Date End Date Ruth Munoz APRN [address] [place] [address] PCP - General 04/26/19 06/19/23 documented as of this encounter
--- OUTSIDE RECORDS SUMMARY | 2024-09-18 16:04 | XMS_ITS | Encounter Summary ---
Author Organization [facility] Address [address] [place] [address] Care Team Providers Care Rivet Driver Name Role Phone Ruth Munoz Lilibeth JUAREZ [...] Office Visit [facility] Pelvic Medicine and Reconstructive Surgery - Medical Office [facility] [address] [place], [place] [phone] Solange Garcia PA-C 2 [facility] Medical Office Building, [address] [place] [address] documented as of this encounter Visit Diagnoses Not on filedocumented in this encounter Care Teams Rivet Driver Relationship Specialty Start Date End Date Ruth Munoz APRN 4 [facility] [place] [address] PCP - General 04/26/19 06/19/23 documented as of this encounter
--- OUTSIDE RECORDS SUMMARY | 2024-09-18 16:04 | XMS_ITS | Encounter Summary ---
Author Organization [facility] Address [address] [place] [address] Care Team Providers Care Elevated Work Platform Operator Name Role Phone Ruth Munoz APRN Primary Care Provider + Reason for Referral * Laboratory Services (Routine) - New Request Specialty Diagnoses / Procedures [facility] Referred To Contact Diagnoses History of urinary hesitancy Procedures URINE CHEMICAL (DIP) & SEDIMENT (MICRO) WITH REFLEX TO CULTURE Lyssa Kaplan MD Phone: tel: fax: Referral ID Status Reason Start Date Expiration Date V isits Requested Visits Authorized [id number] New Request 02/25/2021 1 1 Reason for Visit * Reason Onset Date Comments Pre-visit Orders 02/25/2021 Encounter Details Date Type Department Care Team (Late st Contact Info) Description 02/25/2021 Telephone [facility] Pelvic Medicine and Reconstructive Surgery - Medical Office [facility] [address] [place], [place] [address] Lyssa Kaplan MD 111 [facility], [address] [place] [address] Pre-visit Orders Social History Tobacco Use [...] 03/23/21. Patient need an order sent to [facility] for a UA prior to VUDS. documented in this encounter Plan of Treatment Upcoming Encounters Date Type Department Care Team (Late st Contact Info) Description 02/05/2025 11:00 EDT Office Visit [facility] Pelvic Medicine and Reconstructive Surgery - Medical Office Building [facility] [address] [place] [address] Solange Garcia PA-C [address] [place] [address] Medical Office Building, [address] [place] [phone] Scheduled Orders Name Type Priority Associated Diagnoses Orde r Schedule URINE CHEMICAL (DIP) & SEDIMENT (MICRO) WITH REFLEX TO CULTURE Lab Routine History of urinary hesitancy Ordered: 02/25/2021 documented as of this encounter Visit Diagnoses Diagnosis History of urinary hesitancy- Primary documented in this encounter Care Teams Elevated Work Platform Operator Relationship Specialty Start Date End Date Ruth Munoz, LARRY [address] [place] [address] PCP - General 04/26/19 06/19/23 documented as of this encounter
--- OUTSIDE RECORDS SUMMARY | 2024-09-18 16:04 | XMS_ITS | Encounter Summary ---
Author Organization [facility] Address [address] [place] [address] Care Team Providers Care Character Impersonator Name Role Phone Ruth Munoz Lilibeth JUAREZ Primary Care Provider + Reason for Visit * Reason Onset Date Comments Pharmacy 12/27/2019 Encounter Details Date Type Department Care Team (Late st Contact Info) Description 12/27/2019 Telephone [facility] OBGYN Services - [facility] [address] [place] [address] Angelica Butts, BRENDAN Pharmacy Social History Tobacco Use Types Packs/Day [...] vaginally HS x 14 14 Each 12/27/2019 0 documented in this encounter Miscellaneous Notes [...] Info) Description 02/05/2025 11:00 EDT Office Visit [facility] Pelvic Medicine and Reconstructive Surgery - Medical Office Building [address] [address] Solange Garcia PA-C [address] [place] [address] Medical Office [facility], [address] [address] documented as of this encounter Visit Diagnoses Not on filedocumented in this encounter Care Teams Character Impersonator Relationship Specialty Start Date End Date Ruth Munoz, SHELL TRIM OPERATOR [address] [place] [phone] PCP - General 04/26/19 06/19/23 documented as of this encounter
--- OUTSIDE RECORDS SUMMARY | 2024-09-18 16:04 | XMS_ITS | Encounter Summary ---
Author Organization [facility] Address [address] [place] [address] Care Team Providers Care Outpatient Coding Specialist Name Role Phone Ruth Munoz APRN Primary Care Provider + Katia Haywood Primary Care Provider [phone] Encounter Details Date Type Department Care Team (Late st Contact Info) Description 09/24/2020 Lab Requisition [facility] Pathology & Laboratory Medicine - [facility] [address] [place], [place] [address] Outr Resulting Lab, Provider Social History Tobacco [...] Info) Description 02/05/2025 11:00 EDT Office Visit [facility] Pelvic Medicine and Reconstructive Surgery - Medical Office [facility] [address] [place] [address] Solange Garcia PA-C 2 [facility], [address] [phone] documented as of this encounter Procedures Procedure Name Priority Date/Time Associated Diagnosis Comments FOLATE Routine 09/24/2020 17:04 EST documented in this encounter Results * FOLATE (09/24/2020 17:04 EST) Folate >24.0 See Note ng/mL 09/24/2020 22:[address] [facility] Comment: Reference Ranges for Folate: Deficient: ?< 3.4 ng/mL Indeterminate: ??3.4 - 5.4 ng/mL Normal: ? > 5.4 ng/mL The results of this assay can be falsely elevated due to the consumption of Biotin. Blood VENOUS BLOOD / Unknown 09/24/2020 17:04 EST 09/24/2020 21:38 EST us Provider Outr Resulting Lab CHEMISTRY & BLOOD GA S ORDERABLES Final Result [facility] [address] [place] [address] documented in this encounter Visit Diagnoses Not on filedocumented in this encounter Care Teams Outpatient Coding Specialist Relationship Specialty Start Date End Date Ruth Munoz APRN [address] [place] [phone] PCP - General 04/26/19 06/19/23 Katia Haywood [address] [place] [phone] PCP - General Family Medicine - Primary Care 06/20/23 documented as of this encounter
--- OUTSIDE RECORDS SUMMARY | 2024-09-18 16:04 | XMS_ITS | Encounter Summary ---
Author Organization [facility] Address [address] [place] [address] Care Team Providers Care Program Review Director Name Role Phone MunozRuth jerome Lilibeth JUAREZ [...] and Reconstructive Surgery - Medical Office Building [facility] [address] [place] [address] Solange Garcia PA-C 792 [facility] Office [facility], [address] [phone] documented as of this encounter Visit Diagnoses Not on filedocumented in this encounter Care Teams Program Review Director Relationship Specialty Start Date End Date Ruth Munoz, SPINNER OPERATOR [address] [place] [address] PCP - General 04/26/19 06/19/23 documented as of this encounter
--- OUTSIDE RECORDS SUMMARY | 2024-09-18 16:04 | XMS_ITS | Encounter Summary ---
Author Organization [facility] Address [address] [place] [address] Care Team Providers Care Live Source Operator Name Role Phone AlexanderAidanantony Mcelroy APRN Primary Care Provider + Reason for Visit * Reason Comments Urine Change VUDS Encounter Details Date Type Department Care Team (Late st Contact Info) Description 04/08/2021 10:[address] [facility] Pelvic Medicine and Reconstructive Surgery - Medical Office [facility] [address] [place] [address] Lyssa Kaplan MD 111 [facility], [address] [place] [address] Weak urinary stream (Primary Dx) [...] documented in this encounter Progress Notes * Len Fernandez [...] Description 02/05/2025 11:[address] [facility] Pelvic Medicine and Reconstructive Surgery - Medical Office Building [facility] [address] [place] [address] Solange Garcia PA-C 792 [facility] Medical Office Building, [address] [place] [phone] documented as of this encounter Procedures Procedure Name Priority Date/Time Associated Diagnosis Comments PATHOLOGY - SCANNED 08/03/2021 19:38 EDT documented in this encounter Results * PATHOLOGY - SCANNED (08/03/2021 19:38 EDT) 08/03/2021 19:3 8 EDT us Scan 2 [facility] LAB INFO SERVICE AND SUPPOR T & PHONE RESULT Final Result documented in this encounter Visit Diagnoses Diagnosis Weak urinary stream- Primary Slowing of urinary stream documented in this encounter Care Teams Live Source Operator Relationship Specialty Start Date End Date Ruth Munoz APRN [address] [place] [phone] PCP - General 04/26/19 06/19/23 documented as of this encounter
--- OUTSIDE RECORDS SUMMARY | 2024-09-18 16:04 | XMS_ITS | Encounter Summary ---
Author Organization [facility] Address [address] [place] [address] Care Team Providers Care Sand Analyst Name Role Phone MunozRuth jerome Lilibeth JUAREZ Primary Care Provider + Encounter Details Date Type Department Care Team (Late st Contact Info) Description 12/27/2019 Orders Only [facility] OBGYN Services - [facility] [address] [place], [place] [address] Cici Barker, POLO 111 [facility], [address] [place] [address] Social History Tobacco Use Types [...] Visit [facility] Pelvic Medicine and Reconstructive Surgery - Medical Office Building [address] [address] Solange Garcia PA-C 792 [facility] Medical Office [facility], [address] [phone] documented as of this encounter Visit Diagnoses Not on filedocumented in this encounter Discontinued Medications Medication Sig Discontinue Reason Start Date End Da te Miscellaneous Medication - See Admin Instructions Place 600 mg vaginally at bedtime for 14 days. Please call patient when ready.[phone] Error 12/25/2019 12/27/2019 documented as of this encounter Care Teams Sand Analyst Relationship Specialty Start Date End Date Ruth Munoz, ECONOMIC HISTORIAN [address] [place] [address] PCP - General 04/26/19 06/19/23 documented as of this encounter
--- OUTSIDE RECORDS SUMMARY | 2024-09-18 16:04 | XMS_ITS | Encounter Summary ---
Author Organization [facility] Address [address] [place] [address] Care Team Providers Care Ekg Technician Name Role Phone MunozRuth jerome Lilibeth JUAREZ Primary Care Provider + Reason for Visit * Reason Onset Date Comments Medications Refill 02/28/2020 Encounter Details Date Type Department Care Team (Late st Contact Info) Description 02/28/2020 Telephone [facility] OBGYN Services - [facility] [address] [place] [address] Cathy Cook, RN Medications Refill Social History [...] Notes * Telephone Encounter - Cathy Cook, RN - 02/28/2020 4030 EDT Spoke with Martha; using boric acid [...] completely out: ? Last office visit: 12/19/19 ROSEMARIE Barker Pending visit: 05/28/20 YRL w/ Vasile Carreon If appointment needed-message left/appointment made: n/a Pharmacy confirmed: Sent by [facility] in [place], [place] Amount filled/# of refills: pending review documented in this encounter Plan of Treatment Upcoming Encounters Date Type Department Care Team (Late st Contact Info) Description 02/05/2025 11:00 EDT Office Visit [facility] Pelvic Medicine and Reconstructive Surgery - Medical Office Building [facility] [address] [place] [phone] Solange Garcia PA-C 2 [facility] Medical Office Building, [address] [place] [phone] documented as of this encounter Visit Diagnoses Not on filedocumented in this encounter Care Teams Ekg Technician Relationship Specialty Start Date End Date Ruth Munoz APRN 4 [facility] [place] [phone] PCP - General 04/26/19 06/19/23 documented as of this encounter
--- OUTSIDE RECORDS SUMMARY | 2024-09-18 16:04 | XMS_ITS | Encounter Summary ---
Author Organization [facility] Address [address] [place] [address] Care Team Providers Care School Traffic Guard Name Role Phone MunozRuth jerome Lilibeth JUAREZ Primary Care Provider + Reason for Visit * Reason Onset Date Comments Other 05/25/2020 Encounter Details Date Type Department Care Team (Late st Contact Info) Description 05/25/2020 Telephone [facility] ENT - [place] [address] [place] [address] Shola Vazquez MD 130 [facility] [address] [place] [address] Other Social History Tobacco Use [...] and Reconstructive Surgery - Medical Office Building [facility] [address] [place] [address] Solange Garcia PA-C [address] [place] [address] Medical Office Building, [address] [place] [phone] documented as of this encounter Visit Diagnoses Not on filedocumented in this encounter Care Teams School Traffic Guard Relationship Specialty Start Date End Date Ruth Munoz, NUISANCE WILDLIFE CONTROL OPERATOR [address] [place] [phone] PCP - General 04/26/19 06/19/23 documented as of this encounter
--- OUTSIDE RECORDS SUMMARY | 2024-09-18 16:04 | XMS_ITS | Encounter Summary ---
Author Organization [facility] Address [address] [place] [address] Care Team Providers Care Yard Stocker Name Role Phone Ruth Munoz APRN Primary Care Provider + Katia Haywood Primary Care Provider [phone] Encounter Details Date Type Department Care Team (Late st Contact Info) Description 09/24/2020 Lab Requisition [facility] Pathology & Laboratory Medicine - [facility] [address] [place], [place] [address] Outr Resulting Lab, Provider Social History Tobacco [...] Description 02/05/2025 11:00 EDT Office Visit [facility] Pelvic Medicine and Reconstructive Surgery - Medical Office [address] [address] Solange Garcia PA-C 2 [facility] Medical Office [facility], [address] [phone] documented as of this encounter Procedures Procedure Name Priority Date/Time Associated Diagnosis Comments PTH INTACT Routine 09/24/2020 17:04 EST documented in this encounter Results * PTH INTACT (09/24/2020 17:04 EST) Intact PTH 66 19 - 88 pg/mL 09/25/2020 10:17 EST [facility] Blood VENOUS BLOOD / Unknown 09/24/2020 17:04 EST 09/24/2020 21:41 EST us Provider Outr Resulting Lab CHEMISTRY & BLOOD GA S ORDERABLES Final Result [facility] [address] [place] [address] documented in this encounter Visit Diagnoses Not on filedocumented in this encounter Care Teams Yard Stocker Relationship Specialty Start Date End Date Ruth Munoz, LARRY [address] [place] [address] PCP - General 04/26/19 06/19/23 Katia Haywood [address] [place] [phone] PCP - General Family Medicine - Primary Care 06/20/23 documented as of this encounter
--- OUTSIDE RECORDS SUMMARY | 2024-09-18 16:04 | XMS_ITS | Encounter Summary ---
Author Organization [facility] Address [address] [place] [address] Care Team Providers Care Oil Refinery Operator Name Role Phone MunozAidan jeromeantony Mcelroy APRN Primary Care Provider + Reason for Visit * Reason Onset Date Comments Appointment Related 05/19/2020 Encounter Details Date Type Department Care Team (Late st Contact Info) Description 05/19/2020 Telephone [facility] General Surgery - [address] [address] Shola Vazquez MD [address] [place] [phone] Appointment Related Social History Tobacco Use [...] Medicine and Reconstructive Surgery - Medical Office [facility] [address] [place] [phone] Solange Garcia PA-C [address] [place] [address] Medical Office [facility], [address] [phone] documented as of this encounter Visit Diagnoses Not on filedocumented in this encounter Care Teams Oil Refinery Operator Relationship Specialty Start Date End Date Ruth Munoz APRN [address] [place] [phone] PCP - General 04/26/19 06/19/23 documented as of this encounter
--- OUTSIDE RECORDS SUMMARY | 2024-09-18 16:05 | XMS_ITS | Encounter Summary ---
Author Organization [facility] Address [address] [place] [address] Care Team Providers Care Shift Boss Name Role Phone AlexanderAidanantony Mcelroy APRN Primary Care Provider + Encounter Details Date Type Department Care Team (Late st Contact Info) Description 07/24/2019 Orders Only [facility] OBGYN Services - [facility] [address] [place], [place] [address] Jessica Murray NP 111 [facility], [address] [place] [address] Social History Tobacco Use Types [...] 02/05/2025 11:00 EDT Office Visit [facility] Pelvic Medicine and Reconstructive Surgery - Medical Office Building [address] [address] Solange Garcia PA-C [address] [place] [address] Office [facility], [address] [phone] documented as of this encounter Visit Diagnoses Not on filedocumented in this encounter Care Teams Shift Boss Relationship Specialty Start Date End Date Ruth Munoz APRN [address] [place] [address] PCP - General 04/26/19 06/19/23 documented as of this encounter
--- OUTSIDE RECORDS SUMMARY | 2024-09-18 16:05 | XMS_ITS | Encounter Summary ---
Author Organization [facility] Address [address] [place] [address] Care Team Providers Care Pasteurizing Machine Operator Name Role Phone Ruth Munoz APRN Primary Care Provider + Reason for Referral * Radiology Services (Routine) - New Request Specialty Diagnoses / Procedures Referred By Patricio t Referred To Contact Diagnoses Skin ulcer of left heel with fat layer exposed (HCC-CMS) Procedures FOOT 3 OR MORE VIEWS Edwige Keller DPM Phone: tel: fax: Referral ID Status Reason Start Date Expiration Date V isits Requested Visits Authorized [id number] New Request 04/26/2019 1 1 Reason for Visit * Reason Comments Foot Problem Encounter Details Date Type Department Care Team (Late st Contact Info) Description 04/26/2019 9:00 EDT Office Visit [facility] Foot & Ankle Program - [address] [address] Edwige Keller DPM [address] [place] [phone] Skin ulcer of left heel with [...] Refills Last Filled Start Date End Date Sodium Hypochlorite (DAKIN'S SOLUTION) 0.125 % solution 1 application by misc (non-drug; combo route) route daily. Cleanse left foot ulcer with dakins with dressing changes as instructed 1 Bottle 1 04/26/2019 9 documented in this encounter Progress Notes * [...] also had a bone scan done at [facility] about 1 week ago to evaluate forany infection here due to the depth and nonhealing nature of the wound. Ms. Benoit has a history of peripheral neuropathy. She sees neurology at [facility] for this. She reports that it started as shakiness, wobbliness, weakness in both lower extremities. It has progressedto the point where she does not do much walking anymore. She is wondering if this was due to pesticide exposure when she was younger. She used to work in the [employer] with her father. She reports that [facility] attributes this to her diabetes, though [...] for the diabetes. She sees them at [facility]. She does not recall her most [...] Diagnosis Date Noted ??? Diabetes mellitus ([facility]) 08/11/2014 Priority: Medium ??? Vitamin D deficiency 01/28/2010 ??? Morbid obesity ([facility]) 01/22/2010 ??? Mild dysplasia of [...] of left heel with fat layer exposed ([facility]) FOOT 3 OR MORE VIEWS COMPREHENSIVE METABOLIC PANEL (CMP) COMPLETE BLOOD COUNT AND DIFFERENTIAL C REACTIVE PROTEIN SED. RATE:MARY Other Orders Placed This Visit Procedures ??? [...] in both lower extremities. She follows with [facility] neurology for this, and she follows withendocrinology at [facility] for diabetes, which she reports is [...] the bone scan she had done at [facility] on 04/16/2019. It shows possible [...] with speech recognition software or keyboard data conversion analyst techniques. Minor irregularities or keyboarding misprints may be present * Ida Carcamo LPN - 04/26/2019 0900 EDT Call to [facility] with wound care instructions, note faxed. Spoke with intake. Ida Carcamo LPN documented in this encounter Plan of Treatment Upcoming Encounters Date Type Department Care Team (Late st Contact Info) Description 02/05/2025 11:00 EDT Office Visit [facility] Pelvic Medicine and Reconstructive Surgery - Medical Office Building [address] [address] Solange Garcia PA-C [address] [place] [address] Medical Office [facility], [address] [phone] documented as of this encounter Procedures Procedure Name Priority Date/Time Associated Diagnosis Comments MR EXTREMITY FOOT W/WO CONTRAST Routine 05/01/2019 22:35 EDT FOOT 3 OR MORE VIEWS Routine 04/26/2019 9:51 EDT Skin ulcer of left heel with fat layer exposed ([facility]) documented in this encounter Results * MR EXTREMITY FOOT W/WO CONTRAST (05/01/2019 22:35 EDT) Anatomical Region Laterality Modality Other 05/01/2019 22:3 5 EDT 05/03/2019 15:29 EDT Narrative 05/03/2019 15:29 EDT MR EXTREMITY LEFT FOOT W/WO CONTRAST ??05/01/2019 10:35 PM Clinical History/Comments: L97.268-[id number] chronic ulcer of left heel and midfoot with fat layer exposed ([facility])-ICD-10 E11.42-Type 2 diabetes mellitus with diabetic polyneuropathy ([facility])-ICD-10; Chronic left heel ulcer, concern for osteomyelitis [...] the findings. Procedure Note Asher Ferguson MD, MD - 05/03/2019 MR EXTREMITY LEFT FOOT W/WO CONTRAST 05/01/2019 10:35 PM Clinical History/Comments: L97.080-[id number] chronic ulcer of left heel and midfoot with fat layer exposed ([facility])-ICD-10 E11.42-Type 2 diabetes mellitus with diabetic polyneuropathy ([facility])-ICD-10; Chronic left heel ulcer, concern for osteomyelitis [...] above interpretation and agree with the findings. us Edwige Keller DPM IMG MRI ORDERABLES Final Result * SED. RATE:WESTERGREN (04/26/2019 12:51 EDT) Pathologist [facility] Sed. Rate Westergren 16 0 - 30 mm/hr 04/26/2019 13:24 EDT [facility] Blood specimen (specimen) BLOOD SPECIMEN / Unknown 04/26/2019 12:51 EDT 04/26/2019 13:16 EDT us Edwige Keller DPM HEMATOLOGY & PF4 ORDERABLES Fin al Result Performing Organization Address City/[facility] Co de Phone Number [facility] [address] [place] [address] * C REACTIVE PROTEIN (04/26/2019 12:51 EDT) Pathologist [facility] C Reactive Protein <7.0 <10.0 mg/L 04/26/2019 13:58 EDT [facility] Blood specimen (specimen) BLOOD SPECIMEN / Unknown 04/26/2019 12:51 EDT 04/26/2019 13:16 EDT us Edwige Keller DPM CHEMISTRY & BLOOD GAS ORDERABLE S Final Result Performing Organization Address City/[facility]/ZIP Co de Phone Number [facility] [address] [place] [address] * (ABNORMAL) COMPLETE BLOOD COUNT AND DIFFERENTIAL (04/26/2019 12:51 EDT) Pathologist [facility] WBC 11.90 4.0 - 12.4 K/cmm 04/26/2019 13:25 EDT [facility] RBC 5.38(H) 3.86 - 5.04 M/cmm 04/26/2019 13:25 EDT [facility] Hemoglobin 14.7 11.6 - 15.2 gm/dl 04/26/2019 13:25 [facility] HCT 45.1(H) 34.9 - 44.4 % 04/26/2019 13:25 [facility] MCV 84 81 - 98 fl 04/26/2019 13:25 [facility] MCH 27.3 26.7 - 33.3 pg 04/26/2019 13:25 [facility] MCHC 32.6 32.1 - 35.9 gm/dl 04/26/2019 13:25 [facility] RDW-CV 13.2 <14.7 % 04/26/2019 13:25 [facility] RDW-SD 40.3 <50.4 fl 04/26/2019 13:25 [facility] PLT 284 141 - 377 K/[facility] 04/26/2019 13:25 [facility] MPV 11.2 9.5 - 12.7 fl 04/26/2019 13:25 [facility] % Neutrophils 64.8 % 04/26/2019 13:25 [facility] % Lymphocytes 27.6 % 04/26/2019 13:25 [facility] % Monocytes 5.3 % 04/26/2019 13:25 [facility] % Eosinophils 1.3 % 04/26/2019 13:25 [facility] % Basophils 0.7 % 04/26/2019 13:25 [facility] % Immature Grans 0.3 % 04/26/2019 13:25 [facility] ABS Neutrophils 7.71 2.20 - 8.85 K/cmm 04/26/2019 13:25 [facility] ABS Lymphs 3.28 1.09 - 3.30 K/cmm 04/26/2019 13:25 [facility] ABS Monocytes 0.63 0.1 - 0.8 K/cmm 04/26/2019 13:25 [facility] ABS Eosinophils 0.16 0.03 - 0.61 K/cmm 04/26/2019 13:25 [facility] ABS Basophils 0.08 0.01 - 0.11 K/cmm 04/26/2019 13:25 [facility] ABS Immature Grans 0.04 0 - 0.06 K/cmm 04/26/2019 13:25 [facility] Type of Diff: Automated 04/26/2019 13:25 [facility] Blood specimen (specimen) BLOOD SPECIMEN / Unknown 04/26/2019 12:51 EDT 04/26/2019 13:16 EDT us Edwige Keller DPM PACKAGES & DNA PROBE ORDERABLES Final Result [facility] [address] [place] [address] * (ABNORMAL) COMPREHENSIVE METABOLIC PANEL (CMP) (04/26/2019 12:51 EDT) Potassium 4.1 3.5 - 5.0 mEq/L 04/26/2019 13:58 [facility] Sodium 140 136 - 145 mEq/L 04/26/2019 13:58 [facility] Chloride 106 96 - 110 mEq/L 04/26/2019 13:58 [facility] CO2 21(L) 22 - 32 mEq/L 04/26/2019 13:58 [facility] Total Alkaline Phosphatase 109 38 - 126 U/L 04/26/2019 13:58 [facility] Bilirubin, Total 0.7 <1.4 mg/dl 04/26/20 19 13:58 [facility] AST 21 15 - 46 U/L 04/26/2019 13:58 [facility] ALT 22 <53 U/L 04/26/2019 13:58 [facility] Albumin 4.6 3.4 - 4.9 g/dl 04/26/2019 13:58 [facility] Total Protein 7.8 6.3 - 8.2 g/dl 04/26/2019 13:58 [facility] Creatinine 0.35(L) 0.52 - 1.04 mg/dl 04/26/2019 13:58 T [facility] GFR, Calculated 123 >60 ml/min/1.7 3m2 04/26/2019 13:58 T [facility] Comment: eGFR calculated using CKD-EPI equation for non Americans. Multiply eGFR by 1.16 for Americans. BUN 17 10 - 26 mg/dl 04/26/2019 13:58 EDT [facility] Calcium 9.7 8.5 - 10.5 mg/dl 04/26/2019 13:58 [facility] Calculated Calcium 9.2 8.5 - 10.5 mg/dl 04/26/2019 13:58 [facility] Glucose, Serum 83 70 - 100 mg/dl 04/26/2019 13:58 [facility] Fasting? YES 04/26/2019 12:44 EDT [facility] Blood specimen (specimen) BLOOD SPECIMEN / Unknown 04/26/2019 12:51 EDT 04/26/2019 13:16 EDT us Edwige Keller DPM CHEMISTRY & BLOOD GAS ORDERABLE S Final Result [facility] [address] [place] [address] * FOOT 3 OR MORE VIEWS (04/26/2019 9:51 EDT) Anatomical Region Laterality Modality Other 04/26/2019 9:51 EDT 04/26/2019 16:30 EDT Narrative 04/26/2019 16:30 EDT HISTORY: ?? L97.019-[id number] chronic ulcer of left heel and midfoot with fat layer exposed ([facility])-ICD-10; left heel ulcer plantar central heel, chronic [...] Note Clifford Santamaria MD, - 04/26/2019 HISTORY: L97.181-[id number] chronic ulcer of left heel and midfoot [...] recommended. 2. Diffuse osteopenia. 3. Calcaneal enthesopathy. us Edwige Keller DPM IMG DIAGNOSTIC IMAGING ORDERABL ES Final Result documented in this encounter Visit Diagnoses Diagnosis Skin ulcer of left heel with fat layer exposed (HCC-CMS)- Primary Type 2 diabetes mellitus with diabetic polyneuropathy, without long-term current use of insulin ([facility]) documented in this encounter Care Teams Pasteurizing Machine Operator Relationship Specialty Start Date End Date Ruth Munoz, MOLD FILLER [address] [place] [phone] PCP - General 04/26/19 06/19/23 documented as of this encounter
--- OUTSIDE RECORDS SUMMARY | 2024-09-18 16:05 | XMS_ITS | Encounter Summary ---
Author Organization [facility] Address [address] [place] [address] Care Team Providers Care Custom Harvester Name Role Phone AlexanderAidanantony Mcelroy APRN Primary Care Provider + Reason for Visit * Reason Onset Date Comments Vaginitis 07/25/2019 Encounter Details Date Type Department Care Team (Late st Contact Info) Description 07/25/2019 Telephone [facility] OBGYN Services - [facility] [address] [place] [address] Jessica Murray NP [address] [facility], [address] [place] [address] Vaginitis Social History Tobacco Use [...] Refills Last Filled Start Date End Date fluconazole (DIFLUCAN) 150 mg tablet Take 1 [...] 02/05/2025 11:00 EDT Office Visit [facility] Pelvic Medicine and Reconstructive Surgery - Medical Office [facility] [address] [place] [id number] Solange Garcia PA-C [address] [place] [address] Medical Office [facility], [address] [phone] documented as of this encounter Visit Diagnoses Not on filedocumented in this encounter Care Teams Custom Harvester Relationship Specialty Start Date End Date Ruth Munoz APRN [address] [place] [phone] PCP - General 04/26/19 06/19/23 documented as of this encounter
--- OUTSIDE RECORDS SUMMARY | 2024-09-18 16:05 | XMS_ITS | Encounter Summary ---
Author Organization [facility] Address [address] [place] [address] Care Team Providers Care Technical Staff Assistant Name Role Phone Alexander Ruthantony Mcelroy APRN Primary Care Provider + Reason for Visit * Reason Onset Date Comments Appointment Related 06/21/2019 Encounter Details Date Type Department Care Team (Late st Contact Info) Description 06/21/2019 Telephone [facility] OBGYN Services - [facility] [address] [place], [place] [address] Jessica Murray NP 111 [facility], [address] [place] [address] Appointment Related Social History Tobacco [...] prior to the procedure and that Kassie Lauri had already sent the prescription to her pharmacy. Date of appointment: 07/23/2019 Lupe Nolasco 06/21/2019 11:46 documented in this encounter Plan of Treatment Upcoming Encounters Date Type Department Care Team (Late st Contact Info) Description 02/05/2025 11:00 EDT Office Visit [facility] Pelvic Medicine and Reconstructive Surgery - Medical Office [facility] [address] [place] [address] Solange Garcia PA-C [address] [place] [address] Medical Office [facility], [address] [place] [phone] documented as of this encounter Visit Diagnoses Not on filedocumented in this encounter Care Teams Technical Staff Assistant Relationship Specialty Start Date End Date Ruth Munoz APRN [address] [place] [phone] PCP - General 04/26/19 06/19/23 documented as of this encounter
--- OUTSIDE RECORDS SUMMARY | 2024-09-18 16:05 | XMS_ITS | Encounter Summary ---
Author Organization [facility] Address [address] [place] [address] Care Team Providers Care Investigative Agent Name Role Phone AlexanderAidanantony Mcelroy APRN Primary Care Provider + Reason for Visit * Reason Comments Procedure Colposcopy Encounter Details Date Type Department Care Team (Late st Contact Info) Description 07/23/2019 15:00 EDT Office Visit [facility] OBGYN Services - [facility] [address] [place], [place] [phone] Jessica Murray NP 111 [facility], [address] [place] [address] Cervical high risk human papillomavirus [...] 13:57 EDT documented in this encounter Discharge Diagnoses Diagnosis R87.810 Cervical 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-R87.810[ICD-10-CM] documented in this encounter Discharge Disposition Disposition Code Departure Means Destination Auto Discharge documented in this encounter Progress Notes * Jessica Murray PHP DEVELOPER - 07/23/2019 1500 EDT Images from the [...] VAIN Specimens: Cervix: 8 O'Clock, ECC: Curettage, [place], right Vaginal Wall Final Pathologic Diagnosis: A. [...] Info) Description 02/05/2025 11:00 EDT Office Visit [facility] Pelvic Medicine and Reconstructive Surgery - Medical Office Building [address] [address] Solange Garcia PA-C [address] [place] [address] Office [facility], [address] [phone] Scheduled Orders Name Type Priority Associated Diagnoses Menae r Schedule SURGICAL PATHOLOGY- ORDER ONLY Pathology Routine Cervical 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 Ordered: 07/23/2019 documented as of this encounter Visit Diagnoses Diagnosis Cervical 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- Primary documented in this encounter Care Teams Investigative Agent Relationship Specialty Start Date End Date Ruth Munoz APRN [address] [facility] [phone] PCP - General 04/26/19 06/19/23 documented as of this encounter
--- OUTSIDE RECORDS SUMMARY | 2024-09-18 16:05 | XMS_ITS | Encounter Summary ---
Author Organization [facility] Address [address] [place] [address] Care Team Providers Care Bone Drier Operator Name Role Phone MunozRuth Lilibeth JUAREZ Primary Care Provider + Encounter Details Date Type Department Care Team (Late st Contact Info) Description 05/23/2019 Results Only [facility] OBGYN Services - [facility] [address] [place] [address] Kassie Carreon PA-C 111 [facility], [address] [place] [address] Social History Tobacco Use Types [...] documented in this encounter Miscellaneous Notes * Result Encounter Note - Kassie Carreon PA - 05/23/2019 2382 EDT ATR Jo to discuss pap result. [...] as I may not log back into [facility] until much later today as I'm travelling back from [place]. documented in this encounter Plan of Treatment Upcoming Encounters Date Type Department Care Team (Late st Contact Info) Description 02/05/2025 11:00 EDT Office Visit [facility] Pelvic Medicine and Reconstructive Surgery - Medical Office Building [address] [address] Solange Garcia PA-C [address] [place] [address] Medical Office [facility], [address] [phone] documented as of this encounter Procedures Procedure Name Priority Date/Time Associated Diagnosis Comments HPV GENOTYPING 16, 18/45, THINPREP Routine 05/23/2019 8:48 EDT PAP TEST- RESULT ONLY Routine 05/23/2019 0:00 EDT documented in this encounter Results * (ABNORMAL) HPV GENOTYPING 16, 18/45, THINPREP (05/23/2019 8:48 EDT) Specimen Description Cervix, ThinPrep vial 06/11/2019 8:49 EDT [facility] HPV 16 RNA Result Negative 06/11/2019 15:16 EDT [facility] HPV 18/45 RNA Result POSITIVE(AA) 06/11/2019 15:16 EDT [facility] TOPOGRAPHY UNKNOWN / Unknown 05/23/2019 8:48 EDT 06/11/2019 8:48 EDT Kassie Carreon PA-C MICROBIOLOGY - GENERAL ORDERABLES Final Result [facility] [address] [place] [address] * PAP TEST- RESULT ONLY (05/23/2019 0:00 EDT) Pathology Report: CYTOPATHOLOGY REPORT Reports generated via electronic interface contain original data; however they are lacking the format of the original report. Caution should be taken when reading/interpreti ng unformatted reports. Name: ? JO JONES ? Accession #: ? [id number] ? : ? 1965 (Age: 53) ??F [...] 33,35,39,45,51,52, 56,58,59,66, and 68 is detected by erp project manager mediated amplification. High and intermediate risk [...] confirmed the above diagnosis. End of Report [facility] 05/23/2019 05/24/2019 us Kassie Carreon PA-C PATHOLOGY ORDERABLES F inal Result [facility] [address] [place] [address] documented in this encounter Visit Diagnoses Not on filedocumented in this encounter Care Teams Bone Drier Operator Relationship Specialty Start Date End Date Ruth Munoz, MEAT BLENDER [address] [place] [phone] PCP - General 04/26/19 06/19/23 documented as of this encounter
--- OUTSIDE RECORDS SUMMARY | 2024-09-18 16:05 | XMS_ITS | Encounter Summary ---
Author Organization [facility] Address [address] [place] [address] Care Team Providers Care Database Developer Name Role Phone Ruth Munoz APRN Primary Care Provider + Reason for Visit * Reason Comments Foot Problem Encounter Details Date Type Department Care Team (Late st Contact Info) Description 07/17/2019 11:30 EDT Office Visit [facility] Foot & Ankle Program - [address] [address] Edwige Keller, [facility] [address] [place] [address] Ulcer of foot, left, with fat layer exposed ([facility]) (Primary Dx); Type 2 diabetes mellitus with diabetic polyneuropathy, with long-term current use of insulin ([facility]) Social History Tobacco Use Types [...] this encounter Progress Notes * Edwige Keller Lilibeth, DPM - 07/17/2019 1130 EDT Martha Benoit [...] List Diagnosis Date Noted ??? Diabetes mellitus ([facility]) 08/11/2014 Priority: Medium ??? Vitamin D deficiency 01/28/2010 ??? Morbid obesity ([facility]) 01/22/2010 ??? Mild dysplasia of cervix [...] of foot, left, with fat layer exposed (HCC-CMS) 2. Type 2 diabetes mellitus with diabetic polyneuropathy, with long-term current use of insulin ([facility]) No orders of the defined [...] with speech recognition software or keyboard data center engineer techniques. Minor irregularities or keyboarding misprints may be present * Ida Carcamo LPN - 07/17/2019 1130 EDT Call to [facility] with wound care orders. Note faxed. Ida Carcamo LPN documented in this encounter Plan of Treatment Upcoming Encounters Date Type Department Care Team (Late st Contact Info) Description 02/05/2025 11:00 EDT Office Visit [facility] Pelvic Medicine and Reconstructive Surgery - Medical Office Building [facility] [address] [place] [address] Solange Garcia PA-C [address] [place] [address] Medical Office Building, [address] [phone] documented as of this encounter Visit Diagnoses Diagnosis Ulcer of foot, left, with fat layer exposed ([facility])- Primary Type 2 diabetes mellitus with diabetic polyneuropathy, with long-term current use of insulin ([facility]) documented in this encounter Care Teams Database Developer Relationship Specialty Start Date End Date Ruth Munoz APRN [address] [place] [phone] PCP - General 04/26/19 06/19/23 documented as of this encounter
--- OUTSIDE RECORDS SUMMARY | 2024-09-18 16:05 | XMS_ITS | Encounter Summary ---
Author Organization [facility] Address [address] [place] [address] Care Team Providers Care Senior Net Programmer Name Role Phone Ruth Munoz APRN Primary Care Provider + Reason for Visit * Reason Onset Date Comments Biopsy Results 07/31/2019 Encounter Details Date Type Department Care Team (Late st Contact Info) Description 07/31/2019 Telephone [facility] OBGYN Services - [facility] [address] [place], [place] [address] Jessica Murray NP 111 [facility], Level 4 [place] [address] Biopsy Results Social History Tobacco [...] Description 02/05/2025 11:00 EDT Office Visit [facility] Pelvic Medicine and Reconstructive Surgery - Medical Office [facility] [address] [place] [phone] Solange Garcia PA-C [address] [place] [address] Office [facility], [address] [place] [phone] documented as of this encounter Visit Diagnoses Not on filedocumented in this encounter Care Teams Senior Net Programmer Relationship Specialty Start Date End Date Ruth Munoz APRN [address] [facility] [place] [address] PCP - General 04/26/19 06/19/23 documented as of this encounter
--- OUTSIDE RECORDS SUMMARY | 2024-09-18 16:05 | XMS_ITS | Encounter Summary ---
Author Organization [facility] Address [address] [place] [address] Care Team Providers Care Side Puller Name Role Phone MunozRuth jerome Lilibeth JUAREZ Primary Care Provider + Reason for Visit * Reason Comments Well Woman Exam Encounter Details Date Type Department Care Team (Late st Contact Info) Description 05/23/2019 13:00 EDT [facility] Visit [facility] OBGYN Services - [address] [address] Kassie Carreon PA-C [address] [place] [address] 2 [place] [address] Encounter for gynecological examination without [...] 13:57 EDT documented in this encounter Discharge Disposition Disposition [...] seen by me in April,.for her annual monitoring coordinator exam, as well as in follow up [...] n/a Mammo: has had them done at [facility] in the past, but has not [...] of cervix ([facility]) ??? Morbid obesity ([facility]) ??? Vitamin D deficiency ??? Diabetes mellitus ([facility]) Past Medical History: Diagnosis Date ??? Unspecified [...] normal. Judgment and thought contentnormal. Assessment: Yearly monitoring coordinator exam History of persistent HPV. Plan: 1. [...] Info) Description 02/05/2025 11:00 EDT Office Visit [facility] Pel[facility] Medicine and Reconstructive [facility] - Medical Office Building [facility] [address] [place] [address] Solange Garcia PA-C 792 [facility] Office [facility], [address] [address] Scheduled Orders Name Type Priority Associated Diagnoses [...] documented as of this encounter Care Teams Side Puller Relationship Specialty Start Date End Date Ruth Munoz APRN 4 [facility]NOTE 3] [place] [phone] PCP - General 04/26/19 06/19/23 documented as of this encounter
--- OUTSIDE RECORDS SUMMARY | 2024-09-18 16:05 | XMS_ITS | Encounter Summary ---
Author Organization [facility] Address [address] [place] [address] Care Team Providers Care Contract Accountant Name Role Phone MunozRuth jerome Lilibeth JUAREZ Primary Care Provider + Reason for Visit * Reason Onset Date Comments Medications Refill 12/16/2019 Encounter Details Date Type Department Care Team (Late st Contact Info) Description 12/16/2019 Telephone [facility] OBGYN Services - [facility] [address] [place] [address] Angelica Butts, RN Medications Refill Social History [...] 02/05/2025 11:00 EDT Office Visit [facility] Pelvic Medicine and Reconstructive Surgery - Medical Office Building [address] [address] Solange Garcia PA-C [address] [place] [address] Medical Office [facility], [address] [address] documented as of this encounter Visit Diagnoses Not on filedocumented in this encounter Care Teams Contract Accountant Relationship Specialty Start Date End Date Ruth Munoz APRN 4 [facility] [place] [address] PCP - General 04/26/19 06/19/23 documented as of this encounter
--- OUTSIDE RECORDS SUMMARY | 2024-09-18 16:05 | XMS_ITS | Encounter Summary ---
Author Organization [facility] Address [address] [place] [address] Care Team Providers Care Strategy Execution Consultant Name Role Phone Patrick Clement MD Primary Care Provider [phone] Reason for Visit * Reason Onset Date Comments Results 06/11/2018 Encounter Details Date Type Department Care Team (Late st Contact Info) Description 06/11/2018 Telephone [facility] OBGYN Services - [facility] [address] [place] [address] Mel Babcock, RN [address] [place] [address] Results Social History Tobacco Use Types Packs/Day [...] Info) Description 02/05/2025 11:00 EDT Office Visit [facility] Pelvic Medicine and Reconstructive Surgery - Medical Office Building [facility] [address] [place] [address] Solange Garcia PA-C [address] [place] [address] Office [facility], [address] [place] [phone] documented as of this encounter Visit Diagnoses Not on filedocumented in this encounter Care Teams Strategy Execution Consultant Relationship Specialty Start Date End Date Patrick Clement MD PCP - General 05/21/18 04/25/19 documented as of this encounter
--- OUTSIDE RECORDS SUMMARY | 2024-09-18 16:05 | XMS_ITS | Encounter Summary ---
Author Organization [facility] Address [address] [place] [address] Care Team Providers Care Security Operations Specialist Name Role Phone Patrick Clement MD Primary Care Provider [phone] Encounter Details Date Type Department Care Team (Late st Contact Info) Description 05/22/2018 Results Only [facility] OBGYN Services - [address] [address]32[address] Kassie Carreon PA-C 111 [facility], Level 2 [place] [address] Social History Tobacco Use Types [...] Info) Description 02/05/2025 11:00 EDT Office Visit [facility] Pelvic Medicine and Reconstructive Surgery - Medical Office Building [address] [address] Solange Garcia PA-C 2 [facility] Medical Office [facility], [address] [address] documented as of this encounter [...] ? JO JONES ? Accession #: ? [id number] ? : ? 1965 (Age: 52) ??F [...] Document reviewed and electronically signed by: ? Nany Chris, [facility](ASCP) ? Report ??Date: 06/06/2018 15:46 HPV with Pap Test ? Date Ordered: ? 06/06/2018 ? Status: ?? Signed Out ?Date Complete: ? 06/07/2018 ? By: ??System Interface ? Date Reported: ? 06/07/2018 ? Interpretation RESULT: Negative for HPV. No E6 or E7 mRNA is detected from HPV types 16,18,31,33,35, 39,45,51,52,56,58, 59,66, and 68 by research laboratory technician mediated amplification. Comments Document reviewed and electronically signed by: ? System Interface ? Report date: 06/07/2018 By the signature above, the attending physician certifies that he/she has personally conducted a gross and/or microscopic examination of the described specimens and rendered or confirmed the above diagnosis. End of Report [facility] 05/22/2018 05/23/2018 us Kassie Carreon PA-C PATHOLOGY ORDERABLES F inal Result [facility] [address] [place] [address] documented in this encounter Visit Diagnoses Not on filedocumented in this encounter Care Teams Security Operations Specialist Relationship Specialty Start Date End Date Patrick Clement MD PCP - General 05/21/18 04/25/19 documented as of this encounter
--- OUTSIDE RECORDS SUMMARY | 2024-09-18 16:05 | XMS_ITS | Encounter Summary ---
Author Organization [facility] Address [address] [place] [address] Care Team Providers Care Bursar Name Role Phone MunozRuth jerome Lilibeth JUAREZ Primary Care Provider + Reason for Visit * Reason Onset Date Comments Medication Management 07/11/2019 Encounter Details Date Type Department Care Team (Late st Contact Info) Description 07/11/2019 Telephone [facility] OBGYN Services - [facility] [address] [place] [address] Angelica Butts, deck worker Management Social History Tobacco Use Types Packs/Day [...] Encounter - Kassie Carreon PA - 07/11/2019 1555 EDT Note reviewed. I called Martha, discussed [...] RN - 07/11/2019 1215 EDT Call to [employer]. I spoke to pharmacist Purvi. Purvi did [...] patient. Patient uses the kidneys drug in [place] for about. Will forward to provider for [...] Visit [facility] Pelvic Medicine and Reconstructive Surgery - Medical Office [address] [address] Solange Garcia PA-C 2 [facility] Office [facility], [address] [phone] documented as of this encounter Visit Diagnoses Not on filedocumented in this encounter Care Teams Bursar Relationship Specialty Start Date End Date Ruth Munoz APRN 4 [facility] [phone] PCP - General 04/26/19 06/19/23 documented as of this encounter
--- OUTSIDE RECORDS SUMMARY | 2024-09-18 16:05 | XMS_ITS | Encounter Summary ---
Author Organization [facility] Address [address] [place] [address] Care Team Providers Care Preparer Samples And Repairs Name Role Phone AlexanderAidanantony Mcelroy APRN Primary Care Provider + Encounter Details Date Type Department Care Team (Latest Contact Info) Description 05/01/2019 20:14 EDT - 05/01/2019 23:59 EDT Hospital Encounter [facility] [address] [place] [address] Edwige Keller, DPM [address] [place] [phone] Discharge Disposition: Auto Discharge Social History [...] documented in this encounter Discharge Diagnoses Diagnosis L97.421 Non-pressure [...] by mouth daily. Reported on 03/13/2017 4 hydrocortisone 1 % cream Apply topically to affected area 2 times daily as needed for Other (vaginal irritation) 1 Tube 1 05/07/2015 0 Miscellaneous Medication - See Admin Instructions Boric Acid, 600 mg one supp. nightly x 14 nights. 14 Each 0 08/24/2015 9 Miscellaneous Medication - See Admin Instructions Boric Acid, 600 mg one suppository vaginally at bedtime once weekly. 12 Each 3 08/24/2015 9 nitroglycerin 0.4 % (w/w) ointment Apply 1 application topically as needed. 03/05/2019 4 POTASSIUM CHLORIDE ORAL Take 10 mEq by mouth 2 times daily. Reported on 03/13/2017 9 Sodium Hypochlorite (DAKIN'S SOLUTION) 0.125 % solution 1 application by misc (non-drug; combo route) route daily. Cleanse left foot ulcer with dakins with dressing changes as instructed 1 Bottle 1 04/26/2019 9 documented as of this encounter Discharge Disposition Disposition Code Departure Means Destination Auto Discharge Home documented in this encounter Plan of Treatment Upcoming Encounters Date Type Department Care Team (Late st Contact Info) Description 02/05/2025 11:00 EDT Office Visit [facility] Pelvic Medicine and Reconstructive Surgery - Medical Office [address] [phone] Solange Garcia PA-C [address] [place] [address] Medical Office [facility], [address] [address] documented as of this encounter Visit Diagnoses Not on filedocumented in this encounter Care Teams Preparer Samples And Repairs Relationship Specialty Start Date End Date Ruth Munoz APRN 4 [place] [phone] PCP - General 04/26/19 06/19/23 documented as of this encounter
--- OUTSIDE RECORDS SUMMARY | 2024-09-18 16:05 | XMS_ITS | Encounter Summary ---
Author Organization [facility] Address [address] [place] [address] Care Team Providers Care Truck Technician Name Role Phone AlexanderAidanantony Mcelroy APRN Primary Care Provider + Encounter Details Date Type Department Care Team (Late st Contact Info) Description 05/23/2019 9:00 EDT - 05/23/2019 9:01 EDT Hospital Encounter [address] [address] Kassie Carreon PA-C 111 [facility] 2 [place] [address] Discharge Disposition: Home or Self [...] documented in this encounter Discharge Diagnoses Diagnosis Z01.419 Encounter [...] (vaginal irritation) 1 Tube 1 05/07/2015 0 nitroglycerin 0.4 % (w/w) ointment Apply 1 application topically as needed. 03/05/2019 4 documented as of this encounter Discharge Disposition Disposition Code Departure Means Destination Home or Self Care documented in this encounter Plan of Treatment Upcoming Encounters Date Type Department Care Team (Late st Contact Info) Description 02/05/2025 11:00 EDT [facility] Visit [facility] Pelvic Medicine and Reconstructive Surgery - Medical Office Building [address] [address] Solange Garcia PA-C [address] [place] [address] Office [facility], [address] [phone] documented as of this encounter Visit Diagnoses Not on filedocumented in this encounter Care Teams Truck Technician Relationship Specialty Start Date End Date Ruth Munoz, MEDICAL DEVICE 4 [place] [phone] PCP - General 04/26/19 06/19/23 documented as of this encounter
--- OUTSIDE RECORDS SUMMARY | 2024-09-18 16:05 | XMS_ITS | Encounter Summary ---
Author Organization [facility] Address [address] [place] [address] Care Team Providers Care Ordnance Handler Name Role Phone AlexanderAidanantony Mcleroy APRN Primary Care Provider + Reason for Visit * Reason Onset Date Comments Coordination Of Care 05/21/2019 Encounter Details Date Type Department Care Team (Late st Contact Info) Description 05/21/2019 Telephone [facility] Case Management - [facility] [address] [place] [address] MAIN DEPARTMENT [phone] Frank Meek LICSW Coordination Of Care Social [...] patient would only need to travel to [place] on 1 day. Updated patient re:appointment changes. [facility] documented in this encounter Plan of Treatment Upcoming Encounters Date Type Department Care Team (Late st Contact Info) Description 02/05/2025 11:00 EDT Office Visit [facility] Pelvic Medicine and Reconstructive Surgery - Medical Office [address] [address] Solange Garcia PA-C [address] [place] [address] Medical Office [facility], [address] [phone] documented as of this encounter Visit Diagnoses Not on filedocumented in this encounter Care Teams Ordnance Handler Relationship Specialty Start Date End Date Ruth Munoz APRN 4 [place] [phone] PCP - General 04/26/19 06/19/23 documented as of this encounter
--- OUTSIDE RECORDS SUMMARY | 2024-09-18 16:05 | XMS_ITS | Encounter Summary ---
Author Organization [facility] Address [address] [place] [address] Care Team Providers Care Cutter Grinder Name Role Phone Patrick Clement MD Primary Care Provider [phone] Reason for Visit * Reason Comments Well Woman Exam PAP and HPV due in T kl Encounter Details Date Type Department Care Team (Late st Contact Info) Description 05/22/2018 11:00 EDT Office Visit [facility] OBGYN Services - [address] [address] Kassie Carreon PA-C [address] [place] [address], Level [address] [place] [address] Routine screening for STI (sexually [...] documented in this encounter Discharge Diagnoses Diagnosis Z11.3 Encounter [...] me in Feb, 2017 for her annual sidewalk repairer exam, as well as in follow up [...] ??? Vitamin D deficiency ??? Diabetes mellitus ([facility]) Past Medical History: Diagnosis Date ??? Unspecified [...] normal. Judgment and thought contentnormal. Assessment: Yearly sidewalk repairer exam History of persistent HPV. Plan: There [...] Reconstructive Surgery - Medical Office Building [address] [address] Solange Garcia PA-C 792 [facility] Medical Office [facility], [address] [address] Scheduled Orders Name Type Priority [...] RNA BY PCR (05/22/2018 12:02 EDT) Pathologist [facility] Hep C Ab w Rfx PCR HCSCR2 Negative Negative 05/23/2018 21:57 EDT [facility] Comment: The results of this assay can be falsely lowered due to the consumption of Biotin. Blood specimen (specimen) BLOOD SPECIMEN / Unknown 05/22/2018 12:02 EDT 05/22/2018 12:36 EDT us Kassie Carreon PA-C CHEMISTRY & BLOOD GAS ORDERABLES Final Result [facility] [address] [place] [address] * SYPHILIS SEROLOGY (05/22/2018 12:02 EDT) Syphilis Serology Negative 05/23/2018 13:49 EDT [facility] Comment:Reference Range: Neg ative Blood specimen (specimen) BLOOD SPECIMEN / Unknown 05/22/2018 12:02 EDT 05/22/2018 12:36 EDT Kassie Carreon PA-C IMMUNOLOGY AND SEROLOG Y ORDERABLES Final Result Performing Organization Address City/[facility]/ZIP Co de Phone Number [facility] [address] [place] [address] * HIV 1/2 ANTIGEN AND ANTIBODY, 4TH GENERATION (05/22/2018 12:02 EDT) HIV 1/2 Antibody Negative Negative 05/23/20 12:27 EDT [facility] Comment: Fourth generation assay performed on the Siemens Tuneaur. If acute HIV-1 infection is suspected in a high risk patient, submit plasma specimen for HIV-1 RNA quantification test. The results of this assay can be falsely lowered due to the consumption of Biotin. Blood specimen (specimen) BLOOD SPECIMEN / Unknown 05/22/2018 12:02 EDT 05/22/2018 12:36 EDT Kassie Carreon PA-C IMMUNOLOGY AND SEROLOG Y ORDERABLES Final Result Performing Organization Address [facility] Co de Phone Number [facility] [address] [place] [address] * CHLAMYDIA/N. GONORRHOEAE AMPLIFIED RNA, THINPREP (05/22/2018 11:38 EDT) Chlamydia Result Negative 05/23/2018 14:28 EDT [facility] GC Result Negative 05/23/2018 14:28 EDT [facility] Specimen of unknown material (specimen) CERVIX UTERI STRUCTURE / Unknown 05/22/2018 11:38 EDT 05/23/2018 9:09 EDT Kassie Carreon PA-C MICROBIOLOGY - GENERAL ORDERABLES Final Result Performing Organization Address City/[facility]/ZIP Co de Phone Number [facility] [address] [place] [address] documented in this encounter Visit Diagnoses Diagnosis Routine screening for STI (sexually transmitted infection)- Primary Screening examination for venereal disease Encounter for gynecological examination without abnormal finding Routine gynecological examination Cervical 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 documented in this encounter Care Teams Cutter Grinder Relationship Specialty Start Date End Date Patrick Clement MD PCP - General 05/21/18 04/25/19 documented as of this encounter
--- OUTSIDE RECORDS SUMMARY | 2024-09-18 16:05 | XMS_ITS | Encounter Summary ---
Author Organization [facility] Address [address] [place] [address] Care Team Providers Care Miller Apprentice Name Role Phone Ruth Munoz APRN Primary Care Provider + Reason for Visit * Reason Comments Foot Problem Encounter Details Date Type Department Care Team (Late st Contact Info) Description 05/23/2019 9:30 EDT Office Visit [facility] Foot & Ankle Program - [address] [address] Edwige Keller, [facility] [address] [place] [address] Ulcer of heel, left, with fat layer exposed ([facility]) (Primary Dx); Type 2 diabetes mellitus with diabetic polyneuropathy, with long-term current use of insulin ([facility]) Discharge Disposition: Auto Discharge Social History [...] documented in this encounter Discharge Diagnoses Diagnosis L97.422 Non-pressure [...] Diagnosis Date Noted ??? Diabetes mellitus ([facility]) 08/11/2014 Priority: Medium ??? Vitamin D deficiency 01/28/2010 ??? Morbid obesity ([facility]) 01/22/2010 ??? Mild dysplasia of cervix [...] of heel, left, with fat layer exposed ([facility]) 2. Type 2 diabetes mellitus with diabetic polyneuropathy, with long-term current use of insulin ([facility]) No orders of the defined types [...] prepared with speech recognition software or keyboard oracle database consultant techniques. Minor irregularities or keyboarding misprints may be present * Ida Carcamo LPN - 05/23/2019 0930 EDT [facility] documented in this encounter Plan of Treatment Upcoming Encounters Date Type Department Care Team (Late st Contact Info) Description 02/05/2025 11:00 EDT Office Visit [facility] Pelvic Medicine and Reconstructive Surgery - Medical Office Building [facility] [address] [place] [address] Solange Garcia PA-C 792 [facility] Medical Office Building, [address] [place] [phone] documented as of this encounter Visit Diagnoses Diagnosis Ulcer of heel, left, with fat layer exposed ([facility])- Primary Type 2 diabetes mellitus with diabetic polyneuropathy, with long-term current use of insulin ([facility]) documented in this encounter Care Teams Miller Apprentice Relationship Specialty Start Date End Date Ruth Munoz APRN [address] [place] [address] PCP - General 04/26/19 06/19/23 documented as of this encounter
--- OUTSIDE RECORDS SUMMARY | 2024-09-18 16:05 | XMS_ITS | Encounter Summary ---
Author Organization [facility] Address [address] [place] [address] Care Team Providers Care Clinical Informatics Specialist Name Role Phone Ruth Munoz APRN Primary Care Provider + Encounter Details Date Type Department Care Team (Late st Contact Info) Description 07/24/2019 11:53 EDT - 07/24/2019 23:59 EDT Hospital Encounter [address] [address] Jessica Murray NP 111 [facility], [facility] 4 [place] [phone] Discharge Disposition: Home or Self Care Social [...] documented in this encounter Discharge Diagnoses Diagnosis N89.8 Other [...] 1 Tab under the tongue daily. 06/18/2019 0 estradiol (ESTRACE) 0.01 % (0.1 mg/gram) vaginal cream Place 1 g vaginally three times a week for 21 days. Do not use for 2 days prior to your colposcopy 1 Tube 06/21/2019 2 folic acid (FOLVITE) 1 mg tablet Take [...] Info) Description 02/05/2025 11:00 EDT Office Visit [facility] Pelvic Medicine and Reconstructive Surgery - Medical Office [address] [address] Solange Garcia PA-C [address] [place] [address] Medical Office [facility], [address] [phone] documented as of this encounter Visit Diagnoses Not on filedocumented in this encounter Care Teams Clinical Informatics Specialist Relationship Specialty Start Date End Date Ruth Munoz APRN 4 [place] [address] PCP - General 04/26/19 06/19/23 documented as of this encounter
--- OUTSIDE RECORDS SUMMARY | 2024-09-18 16:05 | XMS_ITS | Encounter Summary ---
Author Organization [facility] Address [address] [place] [address] Care Team Providers Care Solutions Delivery Consultant Name Role Phone AlexanderAidanantony Mcelroy APRN Primary Care Provider + Encounter Details Date Type Department Care Team (Latest Contact Info) Description 04/26/2019 12:34 EDT - 04/26/2019 23:59 EDT Hospital Encounter [facility] [address] [place] [address] Edwige Keller, DPM [address] [place] [phone] Discharge Disposition: Auto Discharge Social History [...] mg by mouth daily. Reported on 03/13/2017 hydrocortisone 1 % cream Apply topically to [...] Visit [facility] Pelvic Medicine and Reconstructive Surgery - Medical Office Building [address] [address] Solange Garcia PA-C 2 [facility] Medical Office [facility], [address] [phone] documented as of this encounter Visit Diagnoses Not on filedocumented in this encounter Care Teams Solutions Delivery Consultant Relationship Specialty Start Date End Date Ruth Munoz APRN 4 [facility] [place] [phone] PCP - General 04/26/19 06/19/23 documented as of this encounter
--- OUTSIDE RECORDS SUMMARY | 2024-09-18 16:05 | XMS_ITS | Encounter Summary ---
Author Organization [facility] Address [address] [place] [address] Care Team Providers Care Appeals Coordinator Name Role Phone Patrick Clement MD Primary Care Provider [phone] Reason for Visit * Reason Onset Date Comments Results 05/24/2018 Encounter Details Date Type Department Care Team (Late st Contact Info) Description 05/24/2018 Telephone [facility] OBGYN Services - [address] [address] Cathy Cook, RN Results Social History Tobacco [...] Encounter - Cathy Cook, BRENDAN - 05/24/2018 1607 EDT Spoke with Martha, advised as below. She said already heard form someone & is just waiting for pap results (not yet available). * Telephone Encounter - Cathy Cook RN - 05/24/2018 1606 EDT ----- Message from BERE Johnson sent at 05/24/2018 8:18 EDT ----- Please let pt know that her STI testing was negative. documented in this encounter Plan of Treatment Upcoming Encounters Date Type Department Care Team (Late st Contact Info) Description 02/05/2025 11:00 EDT Office Visit [facility] Pelvic Medicine and Reconstructive Surgery - Medical Office [facility] [address] [place] [address] Solange Garcia PA-C [address] [place] [address] Medical Office [facility], [address] [place] [phone] documented as of this encounter Visit Diagnoses Not on filedocumented in this encounter Care Teams Appeals Coordinator Relationship Specialty Start Date End Date Patrick Clement MD PCP - General 05/21/18 04/25/19 documented as of this encounter
--- OUTSIDE RECORDS SUMMARY | 2024-09-18 16:05 | XMS_ITS | Encounter Summary ---
Author Organization [facility] Address [address] [place] [address] Care Team Providers Care Lumber Scaler Name Role Phone Ruth Munoz APRN Primary Care Provider + Reason for Visit * Reason Onset Date Comments Nail Problem 06/14/2019 Encounter Details Date Type Department Care Team (Late st Contact Info) Description 06/14/2019 Telephone [facility] Foot & Ankle Program - [address] [address] Edwige Keller, DP [address] [place] [address] Nail Problem Social History Tobacco [...] Refills Last Filled Start Date End Date ciclopirox (PENLAC) 8 % solution Apply to affected nails daily as instructed 1 Bottle 1 06/14/2019 documented in this encounter Miscellaneous Notes * Telephone Encounter - Edwige Keller - 06/14/2019 2006 EDT Spoke with Martha Benoit today. She [...] Info) Description 02/05/2025 11:00 EDT Office Visit [facility] Pelvic Medicine and Reconstructive Surgery - Medical Office Building [facility] [address] [place] [phone] Solange Garcia PA-C 792 [facility] Medical Office [facility], [address] [phone] documented as of this encounter Visit Diagnoses Not on filedocumented in this encounter Care Teams Lumber Scaler Relationship Specialty Start Date End Date Ruth Munoz APRN [address] [place] [phone] PCP - General 04/26/19 06/19/23 documented as of this encounter
--- OUTSIDE RECORDS SUMMARY | 2024-09-18 16:05 | XMS_ITS | Encounter Summary ---
Author Organization [facility] Address [address] [place] [address] Care Team Providers Care Field Nurse Name Role Phone Ruth Munoz APRN Primary Care Provider + Reason for Visit * Reason Onset Date Comments Returning Call 05/03/2019 Encounter Details Date Type Department Care Team (Late st Contact Info) Description 05/03/2019 Telephone [facility] Foot & Ankle Program - [address] [phone] Edwige Keller, DP [address] [place] [phone] Returning Call Social History Tobacco [...] Description 02/05/2025 11:00 EDT Office Visit [facility] Pelvic Medicine and Reconstructive Surgery - Medical Office [address] [phone] Solange Garcia PA-C [address] [place] [address] Medical Office [facility], [address] [phone] documented as of this encounter Visit Diagnoses Not on filedocumented in this encounter Care Teams Field Nurse Relationship Specialty Start Date End Date Ruth Munoz, LARRY [address] [place] [phone] PCP - General 04/26/19 06/19/23 documented as of this encounter
--- OUTSIDE RECORDS SUMMARY | 2024-09-18 16:05 | XMS_ITS | Encounter Summary ---
Author Organization [facility] Address [address] [place] [address] Care Team Providers Care Director Housekeeping Name Role Phone AlexanderAidannatony Mcelroy APRN Primary Care Provider + Encounter Details Date Type Department Care Team (Late st Contact Info) Description 07/24/2019 Orders Only [facility] - [facility] [address] [place], [place] [phone] Jessica Murray NP 111 [facility], [address] [place] [address] Vaginal irritation (Primary Dx) Social [...] Description 02/05/2025 11:00 EDT [facility] Visit [facility] Pelvic Medicine and Reconstructive Surgery - Medical Office Building [facility] [address] [place] [address] Solange Garcia PA-C 792 [facility] Medical Office [facility], [address] [phone] documented as of this encounter Procedures Procedure Name Priority Date/Time Associated Diagnosis Comments ZZVAGINITIS EXAM Routine 07/24/2019 8:22 EDT Vaginal irritation documented in this encounter Results * VAGINITIS EXAM (07/24/2019 8:22 EDT) Gram Smear Result Yeast forms 07/24/2019 14:27 EDT [facility] Gram Smear Result Unable to rule out the presence of bacterial vaginosis. 07/24/2019 14:27 EDT [facility] Result No Trichomonas antigen detected. 07/24/2019 14:20 EDT [facility] Specimen of unknown material (specimen) VAGINAL STRUCTURE / Unknown 07/24/2019 8:22 EDT 07/24/2019 13:45 EDT Comment:Specimen submitted o n a flocked swab. Jessica Murray NP MICROBIOLOGY - GENERAL ORDERAB LES Final Result [facility] [address] [place] [address] documented in this encounter Visit Diagnoses Diagnosis Vaginal irritation- Primary Unspecified noninflammatory disorder of vagina documented in this encounter Care Teams Director Housekeeping Relationship Specialty Start Date End Date Ruth Munoz APRN [address] [place] [phone] PCP - General 04/26/19 06/19/23 documented as of this encounter
--- OUTSIDE RECORDS SUMMARY | 2024-09-18 16:05 | XMS_ITS | Encounter Summary ---
Author Organization [facility] Address [address] [place] [address] Care Team Providers Care Turntable Engineer Name Role Phone Ruth Munoz APRN Primary Care Provider + Reason for Visit * Reason Comments Foot Problem Encounter Details Date Type Department Care Team (Late st Contact Info) Description 06/06/2019 9:30 EDT Office Visit [facility] Foot & Ankle Program - [address] [address] Edwige eKller, [facility] [address] [place] [phone] Ulcer of foot, left, with fat layer exposed ([facility]) (Primary Dx); Type 2 diabetes mellitus with diabetic polyneuropathy, with long-term current use of insulin ([facility]) Social History Tobacco Use Types Packs/Day [...] Progress Notes * Edwige Keller - 06/06/2019 0930 EDT Martha Benoit is a very pleasant [...] List Diagnosis Date Noted ??? Diabetes mellitus ([facility]) 08/11/2014 Priority: Medium ??? Vitamin D deficiency 01/28/2010 ??? Morbid obesity ([facility]) 01/22/2010 ??? Mild dysplasia of cervix [...] of foot, left, with fat layer exposed ([facility]) 2. Type 2 diabetes mellitus with diabetic polyneuropathy, with long-term current use of insulin ([facility]) No orders of the defined types [...] with speech recognition software or keyboard data power consultant techniques. Minor irregularities or keyboarding misprints may be present documented in this encounter Plan of Treatment Upcoming Encounters Date Type Department Care Team (Late st Contact Info) Description 02/05/2025 11:00 EDT Office Visit [facility] Pelvic Medicine and Reconstructive Surgery - Medical Office Building [address] [address] Solange Garcia PA-C [address] [place] [address] Medical Office Building, [address] [phone] documented as of this encounter Visit Diagnoses Diagnosis Ulcer of foot, left, with fat layer exposed ([facility])- Primary Type 2 diabetes mellitus with diabetic polyneuropathy, with long-term current use of insulin ([facility]) documented in this encounter Care Teams Turntable Engineer Relationship Specialty Start Date End Date Ruth Munoz, APPLIED MARINE PHYSICS PROFESSOR [address] [place] [phone] PCP - General 04/26/19 06/19/23 documented as of this encounter
--- OUTSIDE RECORDS SUMMARY | 2024-09-18 16:05 | XMS_ITS | Encounter Summary ---
Author Organization [facility] Address [address] [place] [address] Care Team Providers Care Boiling Off Winder Name Role Phone Nanda Read MD Primary Care Provider Unavailable Encounter Details Date Type Department Care Team (Late st Contact Info) Description 03/16/2018 Results Only [facility] [phone] Cali Garcia MD [address] [place], [place] [phone] Social History Tobacco Use Types Packs/Day Years [...] Description 02/05/2025 11:00 EDT Office Visit [facility] Pelvic Medicine and Reconstructive Surgery - Medical Office Building [facility] [address] [place] [address] Solange Garcia PA-C 2 [facility] Medical Office Building, [address] [phone] documented as of this encounter Procedures Procedure [...] ? JO JONES ? Accession #: ? [id number] ? : ? 1965 (Age: 52) ??F ? Collect Date: ? 03/16/2018 ? Location: ? [facility] ? Receive Date: ? 03/17/2018 ? Provider: CALI GARCIA II, MD Copy to: NANDA READ MD ? Final Pathologic Diagnosis: A. ??COLON, [...] Submitted in toto in B1. BERE Sanches ([facility]) 03/20/2018 7:44 AM End of Report [facility] 03/16/2018 10:5 6 EDT 03/17/2018 10:56 EDT us Cali Garcia MD PATHOLOGY ORDERABLES Final Re sult [facility] [address] [place] [address] documented in this encounter Visit Diagnoses Not on filedocumented in this encounter Care Teams Boiling Off Winder Relationship Specialty Start Date End Date Nanda Read MD PCP - General 05/08/09 05/20/18 documented as of this encounter
--- OUTSIDE RECORDS SUMMARY | 2024-09-18 16:05 | XMS_ITS | Encounter Summary ---
Author Organization [facility] Address [address] [place] [address] Care Team Providers Care Electronics Engineering Manager Name Role Phone MunozRuth jerome Lilibeth JUAREZ Primary Care Provider + Encounter Details Date Type Department Care Team (Late st Contact Info) Description 06/10/2019 Orders Only [facility] OBGYN Services - [facility] [address] [place], [place] [phone] Kassie Carreon PA-C 111 [facility], [address] [place] [phone] Cervical high risk human papillomavirus [...] 02/05/2025 11:00 EDT Office Visit [facility] Pelvic Medicine and Reconstructive Surgery - Medical Office Building [address] [address] Solange Garcia PA-C [address] [place] [address] Medical Office [facility] [address] [place] [address] documented as of this encounter Procedures Procedure Name Priority Date/Time Associated Diagnosis Comments OUTPATIENT ADD-ON Routine 06/10/2019 15: 35 EDT Cervical 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 documented in this encounter Results * OUTPATIENT ADD-ON (06/10/2019 15:35 EDT) Tests to be added 18 SUBTYPING ON RECENT PAP SMEAR. 06/10/2019 15:35 EDT [facility] Diagnosis Code SEE EPIC 06/10/2019 15:47 EDT [facility] Number for problems 847 06/10/2019 15:35 EDT [facility] Comment: 1400 (NOTE, I AM ON VACATION 06/10 06/17. Accession number ORDER [id number] PAP SMEAR 06/10/2019 15:47 EDT [facility] Acknowledge ABP Done 9 7:11 EDT [facility] BLOOD SPECIMEN / Unknown 06/10/2019 15:35 EDT 06/10/2019 15:46 EDT us Kassie Carreon PA-C HEMATOLOGY & PF4 ORDER AMY Final Result [facility] [address] [place] [address] documented in this encounter Visit Diagnoses Diagnosis Cervical 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- Primary documented in this encounter Care Teams Electronics Engineering Manager Relationship Specialty Start Date End Date Ruth Munoz, CRUSHING MILL OPERATOR [address] [place] [phone] PCP - General 04/26/19 06/19/23 documented as of this encounter
--- OUTSIDE RECORDS SUMMARY | 2024-09-18 16:05 | XMS_ITS | Encounter Summary ---
Author Organization [facility] Address [address] [place] [address] Care Team Providers Care Reprographics Associate Name Role Phone MunozRuth jerome Lilibeth JUAREZ Primary Care Provider + Encounter Details Date Type Department Care Team (Late st Contact Info) Description 04/26/2019 Phlebotomy Only [facility] [address] [place] [address] Office Clinician, Outpatient Skin ulcer of left heel with [...] Info) Description 02/05/2025 11:00 EDT Office Visit [facility] Pelvic Medicine and Reconstructive Surgery - Medical Office Building [facility] [address] [place] [address] Solange Garcia PA-C 792 [facility] Medical Office Building, [address] [place] [phone] documented as of this encounter Procedures Procedure Name Priority Date/Time Associated Diagnosis Comments SED RATE Routine 04/26/2019 12:51 EDT Skin ulcer of left heel with fat layer exposed (HCC-CMS) COMPLETE BLOOD COUNT AND DIFFERENTIAL Routine 04/26/2019 12:51 EDT Skin ulcer of left heel with fat layer exposed ([facility]) C REACTIVE PROTEIN Routine 04/26/2019 12 :51 EDT Skin ulcer of left heel with fat layer exposed ([facility]) COMPREHENSIVE METABOLIC PANEL (CMP) Routine 04/26/2019 12:51 EDT Skin ulcer of left heel with fat layer exposed (HCC-CMS) documented in this encounter Results * (ABNORMAL) COMPREHENSIVE METABOLIC PANEL (CMP) (04/26/2019 12:51 EDT) Potassium 4.1 3.5 - 5.0 mEq/L 04/26/2019 13:58 EDT [facility] Sodium 140 136 - 145 mEq/L 04/26/2019 13:58 T [facility] Chloride 106 96 - 110 mEq/L 04/26/2019 13:58 T [facility] CO2 21(L) 22 - 32 mEq/L 04/26/2019 13:58 EDT [facility] Total Alkaline Phosphatase 109 38 - 126 U/L 04/26/2019 13:58 T [facility] Bilirubin, Total 0.7 <1.4 mg/dl 04/26/20 19 13:58 T [facility] AST 21 15 - 46 U/L 04/26/2019 13:58 [facility] ALT 22 <53 U/L 04/26/2019 13:58 [facility] Albumin 4.6 3.4 - 4.9 g/dl 04/26/2019 13:58 [facility] Total Protein 7.8 6.3 - 8.2 g/dl 04/26/2019 13:58 [facility] Creatinine 0.35(L) 0.52 - 1.04 mg/dl 04/26/2019 13:58 [facility] GFR, Calculated 123 >60 ml/min/1.7 3m2 04/26/2019 13:58 [facility] Comment: eGFR calculated using CKD-EPI equation for non Americans. Multiply eGFR by 1.16 for Americans. BUN 17 10 - 26 mg/dl 04/26/2019 13:58 [facility] Calcium 9.7 8.5 - 10.5 mg/dl 04/26/2019 13:58 [facility] Calculated Calcium 9.2 8.5 - 10.5 mg/dl 04/26/2019 13:58 [facility] Glucose, Serum 83 70 - 100 mg/dl 04/26/2019 13:58 [facility] Fasting? YES 04/26/2019 12:44 [facility] Blood specimen (specimen) BLOOD SPECIMEN / Unknown 04/26/2019 12:51 EDT 04/26/2019 13:16 EDT us Edwige Keller DPM CHEMISTRY & BLOOD GAS ORDERABLE S Final Result [facility] [address] [place] [address] * (ABNORMAL) COMPLETE BLOOD COUNT AND DIFFERENTIAL (04/26/2019 12:51 EDT) WBC 11.90 4.0 - 12.4 K/cmm 04/26/2019 13:25 [facility] RBC 5.38(H) 3.86 - 5.04 M/cmm 04/26/2019 13:25 [facility] Hemoglobin 14.7 11.6 - 15.2 gm/dl 04/26/2019 13:25 [facility] HCT 45.1(H) 34.9 - 44.4 % 04/26/2019 13:25 [facility] MCV 84 81 - 98 fl 04/26/2019 13:25 [facility] MCH 27.3 26.7 - 33.3 pg 04/26/2019 13:25 [facility] MCHC 32.6 32.1 - 35.9 gm/dl 04/26/2019 13:25 [facility] RDW-CV 13.2 <14.7 % 04/26/2019 13:25 [facility] RDW-SD 40.3 <50.4 fl 04/26/2019 13:25 [facility] PLT 284 141 - 377 K/cmm 04/26/2019 13:25 [facility] MPV 11.2 9.5 - 12.7 fl 04/26/2019 13:25 [facility] % Neutrophils 64.8 % 04/26/2019 13:25 [facility] % Lymphocytes 27.6 % 04/26/2019 13:25 [facility] % Monocytes 5.3 % 04/26/2019 13:25 [facility] % Eosinophils 1.3 % 04/26/2019 13:25 [facility] % Basophils 0.7 % 04/26/2019 13:25 [facility] % Immature Grans 0.3 % 04/26/2019 13:25 [facility] ABS Neutrophils 7.71 2.20 - 8.85 K/cmm 04/26/2019 13:25 [facility] ABS Lymphs 3.28 1.09 - 3.30 K/cmm 04/26/2019 13:25 [facility] ABS Monocytes 0.63 0.1 - 0.8 K/cmm 04/26/2019 13:25 [facility] ABS Eosinophils 0.16 0.03 - 0.61 K/cm 04/26/2019 13:25 EDT [facility] ABS Basophils 0.08 0.01 - 0.11 K/[facility] 04/26/2019 13:25 EDT [facility] ABS Immature Grans 0.04 0 - 0.06 /[facility] 04/26/2019 13:25 EDT [facility] Type of Diff: Automated 04/26/2019 13:25 EDT [facility] Blood specimen (specimen) BLOOD SPECIMEN / Unknown 04/26/2019 12:51 EDT 04/26/2019 13:16 EDT us Edwige CARCAMOM PACKAGES & DNA PROBE ORDERABLES Final Result Performing Organization Address [facility] de Phone Number [facility] [address] [place] [address] * C REACTIVE PROTEIN (04/26/2019 12:51 EDT) C Reactive Protein <7.0 <10.0 mg/L 04/26/2019 13:58 EDT [facility] Blood specimen (specimen) BLOOD SPECIMEN / Unknown 04/26/2019 12:51 EDT 04/26/2019 13:16 EDT us Edwige Keller DPM CHEMISTRY & BLOOD GAS ORDERABLE S Final Result Performing Organization Address [facility] de Phone Number [facility] [address] [place] [address] * SED. RATE:WESTERGREN (04/26/2019 12:51 EDT) Sed. Rate Westergren 16 0 - 30 mm/hr 04/26/2019 13:24 EDT [facility] Blood specimen (specimen) BLOOD SPECIMEN / Unknown 04/26/2019 12:51 EDT 04/26/2019 13:16 EDT us Edwige CARCAMOM HEMATOLOGY & PF4 ORDERABLES Fin al Result Performing Organization Address City/[facility]/ZIP Co de Phone Number [facility] [address] [place] [address] documented in this encounter Visit Diagnoses Diagnosis Skin ulcer of left heel with fat layer exposed ([facility]CC-CMS)- Primary documented in this encounter Care Teams Reprographics Associate Relationship Specialty Start Date End Date Ruth Munoz, ZINC PLATING MACHINE OPERATOR 4 [facility] [place] [phone] PCP - General 04/26/19 06/19/23 documented as of this encounter
--- OUTSIDE RECORDS SUMMARY | 2024-09-18 16:05 | XMS_ITS | Encounter Summary ---
Author Organization [facility] Address [address] [place] [address] Care Team Providers Care Monotype Keyboard Operator Name Role Phone Ruth Munoz APRN Primary Care Provider + Reason for Visit * Reason Comments Foot Problem Encounter Details Date Type Department Care Team (Late st Contact Info) Description 05/09/2019 13:00 EDT Office Visit [facility] Foot & Ankle Program - [address] [address] Edwige Keller, [facility] [address] [place] [address] Skin ulcer of left heel with fat layer exposed ([facility]) (Primary Dx); Type 2 diabetes mellitus with diabetic polyneuropathy, with long-term current use of insulin ([facility]) Social History Tobacco Use Types Packs/Day [...] in this encounter Progress Notes * Krishna Carrillo, Edwige M - 05/09/2019 1300 EDT Martha [...] List Diagnosis Date Noted ??? Diabetes mellitus ([facility]) 08/11/2014 Priority: Medium ??? Vitamin D deficiency 01/28/2010 ??? Morbid obesity ([facility]) 01/22/2010 ??? Mild dysplasia of cervix [...] of left heel with fat layer exposed ([facility]) 2. Type 2 diabetes mellitus with diabetic polyneuropathy, with long-term current use of insulin ([facility]) No orders of the defined types [...] prepared with speech recognition software or keyboard general manager oracle data cloud techniques. Minor irregularities or keyboarding misprints may be present * Ida Carcamo LPN - 05/09/2019 1300 EDT Call to [facility] vna with wound care instruction, spoke with Nany, note faxed. Ida Carcamo LPN documented in this encounter Plan of Treatment Upcoming Encounters Date Type Department Care Team (Late st Contact Info) Description 02/05/2025 11:00 EDT Office Visit [facility] Pelvic Medicine and Reconstructive Surgery - Medical Office Building [address] [address] Solange Garcia PA-C [address] [place] [address] Office [facility], [address] [phone] documented as of this encounter Visit Diagnoses Diagnosis Skin ulcer of left heel with fat layer exposed ([facility])- Primary Type 2 diabetes mellitus with diabetic polyneuropathy, with long-term current use of insulin ([facility]) documented in this encounter Care Teams Monotype Keyboard Operator Relationship Specialty Start Date End Date Ruth Munoz, INTERNAL RECRUITER [address] [place] [phone] PCP - General 04/26/19 06/19/23 documented as of this encounter
--- OUTSIDE RECORDS SUMMARY | 2024-09-18 16:05 | XMS_ITS | Encounter Summary ---
Author Organization [facility] Address [address] [place] [address] Care Team Providers Care Camp Counselor Name Role Phone MunozRuth jerome Lilibeth JUAREZ Primary Care Provider + Reason for Visit * Reason Comments Vaginitis Encounter Details Date Type Department Care Team (Late st Contact Info) Description 12/19/2019 13:00 EST Office Visit [facility] O[facility]YN Services - [facility] [address] [place], [place] [phone] Cici Barker NP [address] [facility], [address] [place] [address] Vaginal burning (Primary Dx) Social [...] this encounter Progress Notes * Cici Barker, HAND RUG BRAIDER - 12/19/2019 1300 EST The Encounter on [...] just discovered they plan to remain in [place] for another 2-3 weeks after the cruise. [...] List Diagnosis Date Noted ??? Diabetes mellitus ([facility]) 08/11/2014 ??? Vitamin D deficiency 01/28/2010 ??? Morbid obesity ([facility]) 01/22/2010 ??? Mild dysplasia of [...] ??? Diabetes Sister ??? Heart Disease Sister [place] at age 42 = ??? Diabetes Mother [...] No Known Allergies O: pleasant, anxious, NAD Guide declined. External genitalia: WNL, no fissures, lesions, [...] Medicine and Reconstructive [place] [address] Solange Garcia PA-C [address] [facility] Linnea Grossman, Medical Office Building, [address] [place] [address] documented as of this encounter [...] ID Few Kelly glabrata(A) 12/25/2019 12:45 EST [facility] Fungal Smear Few Budding Yeast(A) 12/25/2019 12:45 EST [facility] Swab ENTIRE VAGINA / Unknown Swab / Unknown 12/19/2019 15:44 EST 12/19/2019 17:49 EST Cici Barker SKULL GRINDER MICROBIOLOGY - GENERAL OR DERABLES Final Result [facility] [address] [place] [id number] * VAGINITIS EXAM (12/19/2019 15:44 EST) Trichomonas Antigen Negative Negative 12/19/2019 22:12 EST [facility] Scored Gram Smear Yeast present Unable to rule out the presence of bacterial vaginosis 12/19/2019 22:12 EST [facility] Swab ENTIRE VAGINA / Unknown Swab / Unknown 12/19/2019 15:44 EST 12/19/2019 17:49 EST Cici Barker NP MICROBIOLOGY - GENERAL OR DERABLES Final Result [facility] [address] [place] [address] * (ABNORMAL) POCT VAGINAL WET PREP INCLUDES TEJA (12/19/2019 14:00 EST) Clue Cells, POC Absent Absent [facility] Trichomonas, POC Absent Absent [facility] Yeast, POC Absent Absent [facility] White Blood Cells, POC Present(A) Absent [facility] Other ENTIRE VAGINA / Unknown 12/19/2019 14:00 EST us Cici Barker SKULL GRINDER PO[facility] TEST ORDERA BLES Final Result [facility] documented in this [...] may reflect changes made after this encounter. nystatin (MYCOSTATIN) powder 3 times daily as needed. 12/14/2019 pediatric multivitamin no.76 tablet,chewable Take 1 Tab by mouth. 02/13/2019 triamcinolone (KENALOG) 0.1 % ointment APPLY TOPICALLY TO ARMS LEGS AND ABDOMEN TWO TIMES A DAY NEEDED 05/01/2018 canagliflozin (INVOKANA) 300 mg tablet Take 1 Tablet by mouth daily. 02/05/2019 nitroglycerin 0.4 % (w/w) ointment Apply 1 application topically as needed. 03/05/2019 4 cyanocobalamin, vitamin B-12, 500 mcg tablet, sublingual Place 1 Tab under the tongue daily. 06/18/2019 0 added in this encounter Care Teams Camp Counselor Relationship Specialty Start Date End Date Ruth Munoz APRN [address] [place] [address] PCP - General 04/26/19 06/19/23 documented as of this encounter
--- OUTSIDE RECORDS SUMMARY | 2024-09-18 16:05 | XMS_ITS | Encounter Summary ---
Author Organization [facility] Address [address] [place] [address] Care Team Providers Care Work Car Operator Name Role Phone Ruth Munoz APRN Primary Care Provider + Reason for Visit * Reason Comments Foot Problem Encounter Details Date Type Department Care Team (Late st Contact Info) Description 12/04/2019 11:30 EST Office Visit [facility] Foot & Ankle Program - [address] [address] Edwige Keller, [address] [place] [address] Skin ulcer of left foot, limited to breakdown of skin ([facility]) (Primary Dx); Type 2 diabetes mellitus with diabetic polyneuropathy, with long-term current use of insulin ([facility]) Social History Tobacco Use Types [...] List Diagnosis Date Noted ??? Diabetes mellitus ([facility]) 08/11/2014 Priority: Medium ??? Vitamin D deficiency 01/28/2010 ??? Morbid obesity ([facility]) 01/22/2010 ??? Mild dysplasia of cervix ([facility] [...] ??? Diabetes Sister ??? Heart Disease Sister [place] at age 42 = ??? Diabetes Mother [...] left foot, limited to breakdown of skin ([facility]) 2. Type 2 diabetes mellitus with diabetic polyneuropathy, with long-term current use of insulin ([facility]) No orders of the defined types were [...] with speech recognition software or keyboard data technician techniques. Minor irregularities or keyboarding misprints may be present documented in this encounter Plan of Treatment Upcoming Encounters Date Type Department Care Team (Late st Contact Info) Description 02/05/2025 11:00 EDT Office Visit [facility] Pelvic Medicine and Reconstructive Surgery - Medical Office Building [address] [phone] Solange Garcia PA-C [address] [place] [address] Medical Office [facility], [address] [phone] documented as of this encounter Visit Diagnoses Diagnosis Skin ulcer of left foot, limited to breakdown of skin ([facility])- Primary Type 2 diabetes mellitus with diabetic polyneuropathy, with long-term current use of insulin ([facility]) documented in this encounter Care Teams Work Car Operator Relationship Specialty Start Date End Date Ruth Munoz APRN [address] [place] [address] PCP - General 04/26/19 06/19/23 documented as of this encounter
--- OUTSIDE RECORDS SUMMARY | 2024-09-18 16:05 | XMS_ITS | Encounter Summary ---
Author Organization [facility] Address [address] [place] [address] Care Team Providers Care Public Stenographer Name Role Phone Nanda Read MD Primary Care Provider Unavailable Encounter Details Date Type Department Care Team (Latest Contact Info) Description 03/16/2018 15:04 EDT - 03/16/2018 23:59 EDT Hospital Encounter [address] [address] Unknown, Provider, MD Discharge Disposition: Home or Self Care Social [...] once weekly. 12 Each 3 08/24/2015 9 POTASSIUM CHLORIDE ORAL Take 10 mEq by mouth 2 times daily. Reported on 03/13/2017 9 documented as of this encounter Discharge Disposition Disposition Code Departure Means Destination Home or Self Long-Term documented in this encounter Plan of Treatment Upcoming Encounters Date Type Department Care Team (Late st Contact Info) Description 02/05/2025 11:00 EDT Office Visit [facility] Pelvic Medicine and Reconstructive Surgery - Medical Office Building [facility] [address] [place] [address] Solange Garcia PA-C [address] [place] [address] Office Building, [address] [place] [phone] documented as of this encounter Visit Diagnoses Not on filedocumented in this encounter Care Teams Public Stenographer Relationship Specialty Start Date End Date Nanda Read MD PCP - General 05/08/09 05/20/18 documented as of this encounter
--- OUTSIDE RECORDS SUMMARY | 2024-09-18 16:05 | XMS_ITS | Encounter Summary ---
Author Organization [facility] Address [address] [place] [address] Care Team Providers Care Copper Flotation Operator Name Role Phone Ruth Munoz APRN Primary Care Provider + Reason for Visit * Reason Comments Foot Pain Lt Encounter Details Date Type Department Care Team (Late st Contact Info) Description 08/09/2019 9:00 EDT Office Visit [facility] Foot & Ankle Program - [address] [address] Edwige Keller, [facility] [address] [place] [address] Ulcer of foot, left, limited to breakdown of skin ([facility]) (Primary Dx); Type 2 diabetes mellitus with diabetic polyneuropathy, with long-term current use of insulin ([facility]) Social History Tobacco Use Types Packs/Day Years [...] Diagnosis Date Noted ??? Diabetes mellitus ([facility]) 08/11/2014 Priority: Medium ??? Vitamin D deficiency 01/28/2010 ??? Morbid obesity ([facility]) 01/22/2010 ??? Mild dysplasia of [...] to breakdown of skin ([facility]) 2. Type 2 diabetes mellitus with diabetic polyneuropathy, with long-term current use of insulin ([facility]) No orders of the defined types were [...] coordinate this with her sons appointments in [place], as it is very difficult for her [...] with speech recognition software or keyboard data migration consultant techniques. Minor irregularities or keyboarding misprints may be present documented in this encounter Plan of Treatment Upcoming Encounters Date Type Department Care Team (Late st Contact Info) Description 02/05/2025 11:00 EDT Office Visit [facility] Pelvic Medicine and Reconstructive Surgery - Medical Office Building [facility] [address] [place] [phone] Solange Garcia PA-C [address] [place] [address] Medical Office [facility], [address] [address] documented as of this encounter Visit Diagnoses Diagnosis Ulcer of foot, left, limited to breakdown of skin ([facility])- Primary Type 2 diabetes mellitus with diabetic polyneuropathy, with long-term current use of insulin ([facility]) documented in this encounter Care Teams Copper Flotation Operator Relationship Specialty Start Date End Date Ruth Munoz, INSPECTOR FLOOR [address] [place] [phone] PCP - General 04/26/19 06/19/23 documented as of this encounter
--- OUTSIDE RECORDS SUMMARY | 2024-09-18 16:05 | XMS_ITS | Encounter Summary ---
Author Organization [facility] Address [address] [place] [address] Care Team Providers Care Photoengraving Proofer Name Role Phone Ruth Munoz APRN Primary Care Provider + Reason for Visit * Reason Comments Foot Problem Encounter Details Date Type Department Care Team (Late st Contact Info) Description 06/27/2019 9:45 EDT Office Visit [facility] Foot & Ankle Program - [address] [address] Edwige Keller, [facility] [address] [place] [address] Ulcer of foot, left, with fat layer exposed ([facility]) (Primary Dx); Type 2 diabetes mellitus with diabetic polyneuropathy, with long-term current use of insulin ([facility]) Social History Tobacco Use Types Packs/Day [...] Progress Notes * Edwige Keller - 06/27/2019 0945 EDT Martha Benoit is a very pleasant [...] List Diagnosis Date Noted ??? Diabetes mellitus ([facility]) 08/11/2014 Priority: Medium ??? Vitamin D deficiency 01/28/2010 ??? Morbid obesity ([facility]) 01/22/2010 ??? Mild dysplasia [...] of foot, left, with fat layer exposed ([facility]) 2. Type 2 diabetes mellitus with diabetic polyneuropathy, with long-term current use of insulin ([facility]) No orders of the [...] speech recognition software or keyboard data center operator techniques. Minor irregularities or keyboarding misprints may be present * Ida Carcamo LPN - 06/27/2019 0945 EDT [facility] as well with new dressing orders. Ida Carcamo LPN documented in this encounter Plan of Treatment Upcoming Encounters Date Type Department Care Team (Late st Contact Info) Description 02/05/2025 11:00 EDT Office Visit [facility] Pelvic Medicine and Reconstructive Surgery - Medical Office Building [address] [phone] Solange Garcia PA-C [address] [place] [address] Medical Office [facility], [address] [phone] documented as of this encounter Visit Diagnoses Diagnosis Ulcer of foot, left, with fat layer exposed ([facility])- Primary Type 2 diabetes mellitus with diabetic polyneuropathy, with long-term current use of insulin ([facility]) documented in this encounter Care Teams Photoengraving Proofer Relationship Specialty Start Date End Date Ruth Munoz APRN [address] [place] [phone] PCP - General 04/26/19 06/19/23 documented as of this encounter
--- OUTSIDE RECORDS SUMMARY | 2024-09-18 16:05 | XMS_ITS | Encounter Summary ---
Author Organization [facility] Address [address] [place] [address] Care Team Providers Care Relationship Management Lead Name Role Phone Patrick Clement MD Primary Care Provider [phone] Encounter Details Date Type Department Care Team (Late st Contact Info) Description 05/22/2018 Phlebotomy Only [facility] [address] [place] [address] Artist Model, Outpatient Routine screening for STI (sexually transmitted [...] Description 02/05/2025 11:[address] [facility] Pelvic Medicine and Reconstructive Surgery - Medical Office Building [facility] [address] [place] [address] Solange Garcia PA-C 2 [facility] Medical Office Building, [address] [place] [phone] documented as of this encounter Procedures Procedure [...] PCR HCSCR2 Negative Negative 05/23/2018 21:57 EDT [facility] Comment: The results of this assay can be falsely lowered due to the consumption of Biotin. Blood specimen (specimen) BLOOD SPECIMEN / Unknown 05/22/2018 12:02 EDT 05/22/2018 12:36 EDT Kassie Carreon PA-C CHEMISTRY & BLOOD GAS ORDERABLES Final Result [facility] [address] [place] [address] * SYPHILIS SEROLOGY (05/22/2018 12:02 EDT) Syphilis Serology Negative 05/23/2018 13:49 EDT [facility] Comment:Reference Range: Neg ative Blood specimen (specimen) BLOOD SPECIMEN / Unknown 05/22/2018 12:02 EDT 05/22/2018 12:36 EDT Kassie Carreon PA-C IMMUNOLOGY AND SEROLOG Y ORDERABLES Final Result Performing Organization Address [facility] Co de Phone Number [facility] [address] [place] [address] * HIV 1/2 ANTIGEN AND ANTIBODY, 4TH GENERATION (05/22/2018 12:02 EDT) HIV 1/2 Antibody Negative Negative 05/23/20 18 12:27 EDT [facility] Comment: Fourth generation assay performed on the Siemens Centaur. If acute HIV-1 infection is suspected in a high risk patient, submit plasma specimen for HIV-1 RNA quantification test. The results of this assay can be falsely lowered due to the consumption of Biotin. Blood specimen (specimen) BLOOD SPECIMEN / Unknown 05/22/2018 12:02 EDT 05/22/2018 12:36 EDT Kassie Carreon PA-C IMMUNOLOGY AND SEROLOG Y ORDERABLES Final Result Performing Organization Address City/[facility] Co de Phone Number [facility] [address] [place] [id number] documented in this encounter Visit Diagnoses Diagnosis Routine screening for STI (sexually transmitted infection)- Primary Screening examination for venereal disease documented in this encounter Care Teams Relationship Management Lead Relationship Specialty Start Date End Date Patrick Clement MD PCP - General 05/21/18 04/25/19 documented as of this encounter
--- OUTSIDE RECORDS SUMMARY | 2024-09-18 16:05 | XMS_ITS | Encounter Summary ---
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 VA fl uctuate per pt. For months. Noticed floaters yesterday in right eye,but have old floaters also. No flashes.No veil or shade over VA. No pain. VE=[id number]. Encounter Details Date Type Department Care Team (Late st Contact Info) Description 09/17/2018 13:30 EST Office Visit [facility] Ophthalmology - [facility] [address] [place], [place] [id number] Jace Wagner MD [address] [facility], [address] [place] [address] Social History Tobacco Use Types [...] documented in this encounter Progress Notes * Jace Wagner MD - 09/17/2018 1330 EST Chief Complaint Patient presents with ??? Eye Problem NPV: DME eval. VA fluctuate per pt. For months. Noticed floaters yesterday in right eye,but have old floaters also. No flashes.No veil or shade over VA. No pain. VN=[id number]. HPI Location: Right eye Pain: 0 - [...] veil or shade over VA. No pain. IN=[id number] Visual Fluctuations: Floaters Attestation: Vision blur both [...] 13:50 Additional Tests Color Right Left Ishihara 15 /15 Slit Lamp and Fundus Exam Slit Lamp [...] edema associated with type 2 diabetes mellitus ([facility]) EYE PHOTOGRAPHY (FUNDUS) 2. Vitreous syneresis of [...] while he is personally performing the service. MAGUI Pollock (Scribe) documented in this encounter Plan of Treatment Upcoming Encounters Date Type Department Care Team (Late st Contact Info) Description 02/05/2025 11:00 EDT Office Visit [facility] Pelvic Medicine and Reconstructive Surgery - Medical Office Building [facility] [address] [place] [address] Solange Garcia PA-C 2 [facility] Medical Office [facility], [address] [address] Scheduled Orders Name Type Priority Associated Diagnoses Orde r Schedule EYE PHOTOGRAPHY (FUNDUS) Ophthalmology Routine 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
--- OUTSIDE RECORDS SUMMARY | 2024-09-18 16:05 | XMS_ITS | Encounter Summary ---
Author Organization [facility] Address [address] [place] [address] Care Team Providers Care Insole Doubler Name Role Phone Patrick Clement MD Primary Care Provider [phone] Reason for Visit * Reason Onset Date Comments Advice Only 10/11/2018 Encounter Details Date Type Department Care Team (Late st Contact Info) Description 10/11/2018 Telephone [facility] OBGYN Services - [facility] [address] [place] [address] Sarita Davis county judge Only Social History Tobacco Use Types Packs/Day [...] Encounter - Sarita Davis RN - 10/11/2018 9639 EST TC from Martha requesting written information [...] Info) Description 02/05/2025 11:00 EDT Office Visit [facility] Pelvic Medicine and Reconstructive Surgery - Medical Office Building [facility] [address] [place] [address] Solange Garcia PA-C [address] [place] [address] Medical Office [facility], [address] [phone] documented as of this encounter Visit Diagnoses Not on filedocumented in this encounter Care Teams Insole Doubler Relationship Specialty Start Date End Date Patrick Clement MD PCP - General 05/21/18 04/25/19 documented as of this encounter
--- OUTSIDE RECORDS SUMMARY | 2024-09-18 16:05 | XMS_ITS | Encounter Summary ---
Author Organization [facility] Address [address] [place] [address] Care Team Providers Care Forensic Psychiatrist Name Role Phone MunozRuth Lilibeth JUAREZ Primary Care Provider + Encounter Details Date Type Department Care Team (Late st Contact Info) Description 06/20/2019 Orders Only [facility] OBGYN Services - [facility] [address] [place], [place] [phone] Kassie Carreon PA-C 111 [facility], Level 2 [place] [address] Social History Tobacco Use Types [...] Refills Last Filled Start Date End Date estradiol (ESTRACE) 0.01 % (0.1 mg/gram) vaginal cream Place 1 g vaginally three times a week for 21 days. Do not use for 2 days prior to your colposcopy 1 Tube 06/21/2019 2 documented in this encounter Progress Notes * [...] Info) Description 02/05/2025 11:00 EDT Office Visit [facility] Pelvic Medicine and Reconstructive Surgery - Medical Office [address] [phone] Solange Garcia PA-C [address] [place] [address] Medical Office [facility], [address] [phone] documented as of this encounter Visit Diagnoses Not on filedocumented in this encounter Care Teams Forensic Psychiatrist Relationship Specialty Start Date End Date Ruth Munoz APRN [address] [place] [phone] PCP - General 04/26/19 06/19/23 documented as of this encounter
--- OUTSIDE RECORDS SUMMARY | 2024-09-18 16:05 | XMS_ITS | Encounter Summary ---
Author Organization [facility] Address [address] [place] [address] Care Team Providers Care Physician Relations Representative Name Role Phone Ruth Munoz APRN Primary Care Provider + Encounter Details Date Type Department Care Team (Late st Contact Info) Description 07/23/2019 Results Only [facility] OBGYN Services - [facility] [address] [place], [place] [address] Jessica Nixon NP [address] [facility], Level 4 [place] [address] Social History Tobacco Use Types [...] 02/05/2025 11:00 EDT Office Visit [facility] Pelvic Medicine and Reconstructive Surgery - Medical Office Building [address] [address] Solange Garcia PA-C [address] [place] [address] Office [facility], [address] [address] documented as of this encounter [...] ? JO JONES ? Accession #: ? [id number] ? : ? 1965 (Age: 53) ??F ? Collect Date: ? 07/23/2019 ? Location: ? OBGYN ? Receive Date: ? 07/24/2019 ? Provider: JESSICA NIXON DRAWING CHECKER Copy to: ? Final Pathologic Diagnosis: A. [...] Vargas 07/24/2019 11:00 AM End of Report [facility] 07/23/2019 10:4 6 EDT 07/24/2019 10:46 EDT us Jessica Nixon NP PATHOLOGY ORDERABLES Final Res ult [facility] [address] [place] [address] documented in this encounter Visit Diagnoses Not on filedocumented in this encounter Care Teams Physician Relations Representative Relationship Specialty Start Date End Date Ruth Munoz, COAT FELLER [address] [place] [phone] PCP - General 04/26/19 06/19/23 documented as of this encounter
--- OUTSIDE RECORDS SUMMARY | 2024-09-18 16:06 | XMS_ITS | Encounter Summary ---
Author Organization [facility] Address [address] [place] [address] Care Team Providers Care Tool Straightener Name Role Phone Nanda Read MD Primary [...] Info) Description 07/28/2015 15:30 EDT Office Visit [facility] OBGYN Services - [facility] [address] [place], [place] [id number] Janet Wallace FNP Vaginal burning (Primary Dx) [...] Filled Start Date End Date terconazole (TERAZOL 7) 0.4 % vaginal cream Place 1 Applicator vaginally daily for 7 days 1 Tube 2 07/28/2015 5 documented in this encounter Discharge Disposition Disposition [...] Uncomfortable and frustrated. Drove here today from [facility]. Patient Active Problem List Diagnosis ??? Mild [...] but going forward, this might be helpful Therapist Asst declined by patient I spent a total of 20 minutes in face to face time with this patient and 15 minutes of that time was spent in counseling and coordination of care as described in the progress note. * Toshia Huerta RN - 07/28/2015 1540 EDT Pt reports that [...] and Reconstructive Surgery - Medical Office Building [facility] [address] [place] [address] Solange Garcia PA-C 2 [facility] Medical Office [facility], [address] [address] documented as of this encounter [...] material (specimen) 07/28/2015 16:30 EDT Janet Wallace MANAGER PROGRESSIVE CARE POINT OF CARE TEST ORDERABLES F inal Result POINT OF CARE documented in this encounter Visit Diagnoses Diagnosis Vaginal burning- Primary Other specified symptom associated with female genital organs documented in this encounter Discontinued Medications Medication Sig Discontinue Reason Start Date End Da te terconazole (TERAZOL 3) 0.8 % vaginal cream Place 1 Applicator vaginally daily For 3 nights. 08/11/2014 07/28/2015 documented as of this encounter Care Teams Tool Straightener Relationship Specialty Start Date End Date Nnada Read MD PCP - General 05/08/09 05/20/18 documented as of this encounter
--- OUTSIDE RECORDS SUMMARY | 2024-09-18 16:06 | XMS_ITS | Encounter Summary ---
Author Organization [facility] Address [address] [place] [address] Care Team Providers Care Drafter Topographical Name Role Phone Nanda Read MD Primary Care Provider Unavailable Encounter Details Date Type Department Care Team (Late st Contact Info) Description 02/01/2013 Results Only [facility] OBGYN Services - [address] [phone] Kassie Carreon PA-C 111 [facility], Level 2 [place] [address] Social History Tobacco Use Types [...] Info) Description 02/05/2025 11:00 EDT Office Visit [facility] Pelvic Medicine and Reconstructive Surgery - Medical Office Building [address] [address] Solange Garcia PA-C 792 [facility] Medical Office [facility], [address] [phone] documented as of this encounter Procedures Procedure [...] ? JO JONES ? Accession #: ? [id number] ? : ? 1965 (Age: 47) ??F [...] Document reviewed and electronically signed by: ? DMITRY WASHINGTON MD [facility] ? Report ??Date: 02/08/2013 17:32 HPV with Pap Test ? Date Ordered: ? 02/08/2013 ? Status: ?? Signed Out ?Date Complete: ? 02/13/2013 ? By: ??System Interface ? Date Reported: ? 02/13/2013 ? Interpretation RESULT: Negative for HPV. No E6 or E7 mRNA is detected from HPV types 16,18,31,33,35, 39,45,51,52,56,58, 59,66, and 68 by piece dyer mediated amplification. Comments Document reviewed and electronically signed by: ? System Interface ? Report date: 02/13/2013 By the signature above, the attending physician certifies that he/she has personally conducted a gross and/or microscopic examination of the described specimens and rendered or confirmed the above diagnosis. End of Report [facility] 02/01/2013 02/05/2013 us Kassie Carreon PA-C PATHOLOGY ORDERABLES F inal Result [facility] [address] [place] [address] documented in this encounter Visit Diagnoses Not on filedocumented in this encounter Care Teams Drafter Topographical Relationship Specialty Start Date End Date Nanda Read MD PCP - General 05/08/09 05/20/18 documented as of this encounter
--- OUTSIDE RECORDS SUMMARY | 2024-09-18 16:06 | XMS_ITS | Encounter Summary ---
Author Organization [facility] Address [address] [place] [address] Care Team Providers Care Dishwashing Machine Repairer Name Role Phone Nanda Read MD Primary Care Provider Unavailable Reason for Visit * Reason Comments Abnormal Pap Smear recent pap NIL, + HP V Encounter Details Date Type Department Care Team (Late st Contact Info) Description 04/08/2014 10:30 EDT Office Visit [facility] OBGYN Services - [address] [phone] Katy Lubin MD 111 [facility], Level 4 [place] [address] Vaginal discharge (Primary Dx); Cervical [...] when underwent LEEP & vaginal laser. paps [phone] wnl, neg HPV 05/2012 - neg cytology, [...] Info) Description 02/05/2025 11:00 EDT Office Visit [facility] Pelvic Medicine and Reconstructive Surgery - Medical Office Building [address] [address] Solange Garcia PA-C [address] [place] [address] Office [facility], [address] [phone] documented as of this encounter Results * VAGINITIS EXAM (04/08/2014 12:18 EDT) Specimen Description Vagina [facility] Gram Smear Result No yeast seen. [facility] Gram Smear Result Unable to rule out the presence of bacterial vaginosis. [facility] Result No Trichomonas antigen detected. [facility] Report Status 04/08/2014 Final [facility] Specimen of unknown material (specimen) VAGINAL STRUCTURE / Unknown 04/08/2014 12:18 EDT 04/08/2014 16:28 EDT Katy Lubin MD MICROBIOLOGY - GENERAL ORD ERABLES Final Result [facility] [address] [place] [address] documented in this encounter Visit Diagnoses Diagnosis Vaginal discharge- Primary Leukorrhea, not specified as infective Cervical 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 documented in this encounter Orders Lab Orders Without Results Count Last Ordered D ate First Ordered Date SURGICAL PATHOLOGY- ORDER ONLY 1 04/08/2014 documented in this encounter Care Teams Dishwashing Machine Repairer Relationship Specialty Start Date End Date Nanda Read MD PCP - General 05/08/09 05/20/18 documented as of this encounter
--- OUTSIDE RECORDS SUMMARY | 2024-09-18 16:06 | XMS_ITS | Encounter Summary ---
Author Organization [facility] Address [address] [place] [address] Care Team Providers Care Lien Searcher Name Role Phone Nanda Read MD Primary Care Provider Unavailable Encounter Details Date Type Department Care Team (Late st Contact Info) Description 03/11/2016 Results Only [facility] OBGYN Services - [address] [address] Kassie Carreon PA-C 111 [facility], Level 2 [place] [address] Social History Tobacco Use Types [...] Info) Description 02/05/2025 11:00 EDT Office Visit [facility] Pelvic Medicine and Reconstructive Surgery - Medical Office Building [facility] [address] [place] [address] Solange Garcia PA-C 792 [facility] Office [facility], [address] [address] documented as of this encounter [...] ? JO JONES ? Accession #: ? [id number] ? : ? 1965 (Age: 50) ??F [...] 33,35,39,45,51,52, 56,58,59,66, and 68 is detected by tube winder mediated amplification. High and intermediate risk HPV [...] confirmed the above diagnosis. End of Report [facility] 03/11/2016 03/15/2016 us Kassie Carreon PA-C PATHOLOGY ORDERABLES F inal Result [facility] [address] [place] [address] documented in this encounter Visit Diagnoses Not on filedocumented in this encounter Care Teams Lien Searcher Relationship Specialty Start Date End Date Nanda Read MD PCP - General 05/08/09 05/20/18 documented as of this encounter
--- OUTSIDE RECORDS SUMMARY | 2024-09-18 16:06 | XMS_ITS | Encounter Summary ---
Author Organization [facility] Address [address] [place] [address] Care Team Providers Care Bait Man Name Role Phone Nanda Read MD Primary Care Provider Unavailable Reason for Visit * Reason Onset Date Comments Results 04/05/2016 Encounter Details Date Type Department Care Team (Late st Contact Info) Description 04/05/2016 Telephone [facility] OBGYN Services - [facility] [address] [place] [address] Janet Wallace FNP Results Social History Tobacco [...] FNP - 04/05/2016 1814 EDT Pt. Informed NILM with + HPV [...] Info) Description 02/05/2025 11:00 EDT Office Visit [facility] Pelvic Medicine and Reconstructive Surgery - Medical Office Building [address] [address] Solange Garcia PA-C [address] [place] [address] Medical Office Building, [address] [phone] documented as of this encounter Visit Diagnoses Not on filedocumented in this encounter Care Teams Bait Man Relationship Specialty Start Date End Date Nanda Read MD PCP - General 05/08/09 05/20/18 documented as of this encounter
--- OUTSIDE RECORDS SUMMARY | 2024-09-18 16:06 | XMS_ITS | Encounter Summary ---
Author Organization [facility] Address [address] [place] [address] Care Team Providers Care Pad Machine Offbearer Name Role Phone Nanda Read MD Primary Care Provider Unavailable Reason for Visit * Reason Onset Date Comments Results 03/27/2014 Encounter Details Date Type Department Care Team (Late st Contact Info) Description 03/27/2014 Telephone [facility] OBGYN Services - [address] [phone] Kassie Carreon PA-C 111 [facility], Level [address] [place] [address] Results Social History Tobacco Use [...] Encounter - Kassie Carreon PA - 03/27/2014 0860 EDT Spoke with Martha, discussed that her pap was NIL, but HPV is again positive (negative last year). She is scheduled for a colposcopy with Dr. Lubin later this month. documented in this encounter Plan of Treatment Upcoming Encounters Date Type Department Care Team (Late st Contact Info) Description 02/05/2025 11:00 EDT Office Visit [facility] Pelvic Medicine and Reconstructive Surgery - Medical Office Building [address] [address] Solange Garcia PA-C [address] [place] [address] Office [facility], [address] [phone] documented as of this encounter Visit Diagnoses Not on filedocumented in this encounter Care Teams Pad Machine Offbearer Relationship Specialty Start Date End Date Nanda Read MD PCP - General 05/08/09 05/20/18 documented as of this encounter
--- OUTSIDE RECORDS SUMMARY | 2024-09-18 16:06 | XMS_ITS | Encounter Summary ---
Author Organization [facility] Address [address] [place] [address] Care Team Providers Care Strategic Account Director Name Role Phone Nanda Read MD Primary Care Provider Unavailable Reason for Visit * Reason Onset Date Comments Results 03/25/2014 Encounter Details Date Type Department Care Team (Late st Contact Info) Description 03/25/2014 Telephone [facility] Pelvic Medicine and Reconstructive Surgery - Medical Office [facility] [address] [place] [address] Kassie Carreon PA-C 111 [facility], Level 2 [place] [address] Results Social History Tobacco Use [...] Info) Description 02/05/2025 11:00 EDT Office Visit [facility] Pelvic Medicine and Reconstructive Surgery - Medical Office Building [facility] [address] [place] [address] Solange Garcia PA-C [address] [place] [address] Medical Office [facility], [address] [place] [phone] documented as of this encounter Visit Diagnoses Not on filedocumented in this encounter Care Teams Strategic Account Director Relationship Specialty Start Date End Date Nanda Read MD PCP - General 05/08/09 05/20/18 documented as of this encounter
--- OUTSIDE RECORDS SUMMARY | 2024-09-18 16:06 | XMS_ITS | Encounter Summary ---
Author Organization [facility] Address [address] [place] [address] Care Team Providers Care Director Of Financial Planning Name Role Phone Nanda Read MD Primary Care Provider Unavailable Reason for Visit * Reason Onset Date Comments Results 05/03/2016 Encounter Details Date Type Department Care Team (Late st Contact Info) Description 05/03/2016 Telephone [facility] OBGYN Services - [facility] [address] [place], [place] [address] Jessica Murray NP 111 [facility], Level [address] [place] [address] Results Social History Tobacco Use [...] 02/05/2025 11:00 EDT Office Visit [facility] Pelvic Medicine and Reconstructive Surgery - Medical Office Building [facility] [address] [place] [address] Solange Garcia PA-C [address] [place] [address] Medical Office [facility], [address] [phone] documented as of this encounter Visit Diagnoses Not on filedocumented in this encounter Care Teams Director Of Financial Planning Relationship Specialty Start Date End Date Nanda Read MD PCP - General 05/08/09 05/20/18 documented as of this encounter
--- OUTSIDE RECORDS SUMMARY | 2024-09-18 16:06 | XMS_ITS | Encounter Summary ---
Author Organization [facility] Address [address] [place] [address] Care Team Providers Care Gauge And Weigh Machine Operator Name Role Phone Nanda Read MD Primary Care Provider Unavailable Reason for Visit * Reason Comments Gynecologic Exam Encounter Details Date Type Department Care Team (Late st Contact Info) Description 03/11/2016 14:00 EDT Office Visit [facility] OBGYN Services - [address] [address] Kassie Carreon PA-C 111 [facility], Level 2 [place] [address] Cervical high risk human papillomavirus [...] Refills Last Filled Start Date End Date metroNIDAZOLE (FLAGYL) 500 mg tablet Take 1 Tab by mouth 2 times daily for 7 days. 14 Tab 0 03/11/2016 03/18/2016 documented in this encounter Progress Notes * Kassie Carreon, BERE - 03/11/2016 1408 EDT Subjective: Patient ID: [...] ??? Diabetes Sister ??? Heart Disease Sister AL at age 42 = ??? Diabetes Mother [...] normal. Judgment and thought contentnormal. Assessment: Yearly equine dentist exam History of cervical dysplasia/HPV Plan: There [...] Description 02/05/2025 11:00 EDT Office Visit [facility] Pelvic Medicine and Reconstructive Surgery - Medical Office Building [address] [address] Solange Garcia PA-C [address] [place] [address] Medical Office [facility], [address] [phone] Scheduled Orders Name Type Priority Associated Diagnoses [...] Kassie Carreon PA-C POINT OF CARE TEST ORD ERABLES Final Result POINT OF CARE documented in this encounter Visit Diagnoses Diagnosis 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 gabapentin (NEURONTIN) 300 mg capsule Take 1 Capsule by mouth 2 times daily. baclofen (LIORESAL) 10 mg tablet Take 1 Tablet by mouth 4 times daily. lidocaine 5 % (LIDODERM) 5 % patch Place 1 Patch onto the skin daily. omeprazole (PRILOSEC) 20 mg capsule Take 1 Capsule by mouth daily. added in this encounter Care Teams Gauge And Weigh Machine Operator Relationship Specialty Start Date End Date Nanda Read MD PCP - General 05/08/09 05/20/18 documented as of this encounter
--- OUTSIDE RECORDS SUMMARY | 2024-09-18 16:06 | XMS_ITS | Encounter Summary ---
Author Organization [facility] Address [address] [place] [address] Care Team Providers Care Flight Test Shop Mechanic Name Role Phone Nanda Read MD Primary Care Provider Unavailable Reason for Visit * Reason Comments Follow-up Encounter Details Date Type Department Care Team (Late st Contact Info) Description 08/30/2013 16:00 EST Office Visit [facility] OBGYN Services - [address] [address] Kassie Carreon PA-C 111 [facility], Level 2 [place] [phone] Vaginitis and vulvovaginitis, unspecified (Primary Dx) Social [...] Last Filled Start Date End Date metroNIDAZOLE (METROGEL VAGINAL) 0.75 % vaginal gel Place 37.5 mg vaginally at bedtime for 5 days. 1 Tube 0 08/30/2013 3 documented in this encounter Progress Notes * Kassie Carreon PA - 09/01/2013 9506 EST Subjective: Patient ID: Martha Benoit is [...] Info) Description 02/05/2025 11:00 EDT Office Visit [facility] Pelvic Medicine and Reconstructive Surgery - Medical Office Building [address] [address] Solange Garcia PA-C [address] [place] [address] Medical Office [facility], [address] [phone] documented as of this encounter [...] unknown material (specimen) 08/30/2013 16:15 EST Kassie Carreon PA-C POINT OF CARE TEST ORD ERABLES Final Result POINT OF CARE * (ABNORMAL) POCT VAGINAL PH (08/30/2013 16:15 EST) pH, Vaginal, POC 5.0 POINT OF CARE 08/30/2013 16:1 5 EST Kassie Carreon PA-C POINT OF CARE TEST [...] documented as of this encounter Care Teams Flight Test Shop Mechanic Relationship Specialty Start Date End Date Nanda Read MD PCP - General 05/08/09 05/20/18 documented as of this encounter
--- OUTSIDE RECORDS SUMMARY | 2024-09-18 16:06 | XMS_ITS | Encounter Summary ---
Author Organization [facility] Address [address] [place] [address] Care Team Providers Care Wire Communications Engineer Name Role Phone Nanda Read MD Primary Care Provider Unavailable Reason for Visit * Reason Onset Date Comments Results 05/19/2017 Encounter Details Date Type Department Care Team (Late st Contact Info) Description 05/19/2017 Telephone [facility] OBGYN Services - [address] [phone] Katy Lubin MD 111 [facility], Level [address] [place] [address] Results Social History Tobacco Use [...] Info) Description 02/05/2025 11:00 EDT Office Visit [facility] Pelvic Medicine and Reconstructive Surgery - Medical Office [address] [phone] Solange Garcia PA-C [address] [place] [address] Medical Office [facility], [address] [phone] documented as of this encounter Visit Diagnoses Not on filedocumented in this encounter Care Teams Wire Communications Engineer Relationship Specialty Start Date End Date Nanda Read MD PCP - General 05/08/09 05/20/18 documented as of this encounter
--- OUTSIDE RECORDS SUMMARY | 2024-09-18 16:06 | XMS_ITS | Encounter Summary ---
Author Organization [facility] Address [address] [place] [address] Care Team Providers Care Woodworking Machine Operator Name Role Phone Nanda Read MD Primary Care Provider Unavailable Reason for Visit * Reason Onset Date Comments Labs Only 03/15/2016 Encounter Details Date Type Department Care Team (Late st Contact Info) Description 03/15/2016 Telephone [facility] OBGYN Services - [facility] [address] [place] [address] Latosha Stoddard, RN Labs Only Social History [...] smear. * Telephone Encounter - Latosha Stoddard, RN - 03/15/2016 0833 EDT Received TC from [...] 02/05/2025 11:00 EDT Office Visit [facility] Pelvic Medicine and Reconstructive Surgery - Medical Office Building [facility] [address] [place] [phone] Solange Garcia PA-Reta [address] [place] [address] Medical Office [facility], [address] [place] [phone] documented as of this encounter Visit Diagnoses Not on filedocumented in this encounter Care Teams Woodworking Machine Operator Relationship Specialty Start Date End Date Nanda Read MD PCP - General 05/08/09 05/20/18 documented as of this encounter
--- OUTSIDE RECORDS SUMMARY | 2024-09-18 16:06 | XMS_ITS | Encounter Summary ---
Author Organization [facility] Address [address] [place] [address] Care Team Providers Care Burial Vault Deliverer And Installer Name Role Phone Nanda Read MD Primary Care Provider Unavailable Encounter Details Date Type Department Care Team (Late st Contact Info) Description 03/31/2015 Orders Only [facility] OBGYN Services - [address] [phone] Kassie Carreon PA-C 111 [facility], Level [address] [place] [address] Social History Tobacco Use Types [...] Building [facility] [address] [place] [address] [phone] Solange Garcia PA-[address] Medical Office [facility], [address] [phone] documented as of this encounter Visit Diagnoses Not on filedocumented in this encounter Care Teams Burial Vault Deliverer And Installer Relationship Specialty Start Date End Date Nanda Read MD PCP - General 05/08/09 05/20/18 documented as of this encounter
--- OUTSIDE RECORDS SUMMARY | 2024-09-18 16:06 | XMS_ITS | Encounter Summary ---
Author Organization [facility] Address [address] [place] [address] Care Team Providers Care Pest Control Service Representative Name Role Phone Nanda Read MD Primary Care Provider Unavailable Reason for Visit * Reason Comments Abnormal Pap Smear HPV pos, pap neg Encounter Details Date Type Department Care Team (Late st Contact Info) Description 05/16/2017 9:45 EDT Office Visit [facility] OBGYN Services - [address] [phone] Taco Cornejo MD 111 [facility], Level 4 [place] [address] Cervical high risk human papillomavirus [...] issues. [facility] mammography. Has primary provider and master control operator for other care. 06/2009, LEEP - AIDEN [...] Description 02/05/2025 11:00 EDT Office Visit [facility] Pelvic Medicine and Reconstructive Surgery - Medical Office Building [address] [address] Solange Garcia PA-C [address] [place] [address] Medical Office [facility], [address] [phone] Scheduled Orders Name Type Priority Associated Diagnoses [...] ? JO JONES ? Accession #: ? [id number] ? : ? 1965 (Age: 51) ??F [...] case to further characterize the lesion. ??(Dr. Weiss)/jennifern ?? ANTIBODY(CLONE)(BLO CK):RESULT P16 (E6H4TM, Ozan)(B1): Negative MIB-1 (Ki67) (K2, Leica)(B1): Reactive pattern [...] performance characteristics have been determined by the [facility]. ??The positive and negative controls worked [...] (ASCP) 05/17/2017 8:30 AM End of Report [facility] 05/16/2017 18:1 2 EDT 05/16/2017 18:12 EDT us Taco Cornejo MD PATHOLOGY ORDERABLES Final Result [facility] [address] [place] [address] documented in this encounter Visit Diagnoses Diagnosis Cervical 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- Primary documented in this encounter Care Teams Pest Control Service Representative Relationship Specialty Start Date End Date Nanda Read MD PCP - General 05/08/09 05/20/18 documented as of this encounter
--- OUTSIDE RECORDS SUMMARY | 2024-09-18 16:06 | XMS_ITS | Encounter Summary ---
Author Organization [facility] Address [address] [place] [address] Care Team Providers Care Straightedge Man Name Role Phone Nanda Read MD Primary Care Provider Unavailable Reason for Visit * Reason Onset Date Comments Medications Refill 06/25/2015 Encounter Details Date Type Department Care Team (Late st Contact Info) Description 06/25/2015 Telephone [facility] OBGYN Services - [facility] [address] [place] [address] Haily Hull, RN [address] [place] [address] Medications Refill Social History Tobacco Use Types [...] Encounter - Haily Hull, BRENDAN - 06/25/2015 2346 EDT Call rec'd from pharmacy requesting refill [...] Reconstructive Surgery - Medical Office Building [facility] [address] [place] [phone] Solange Garcia PA-C [address] [place] [address] Medical Office [facility], [address] [place] [phone] documented as of this encounter Visit Diagnoses Not on filedocumented in this encounter Care Teams Straightedge Man Relationship Specialty Start Date End Date Nanda Read MD PCP - General 05/08/09 05/20/18 documented as of this encounter
--- OUTSIDE RECORDS SUMMARY | 2024-09-18 16:06 | XMS_ITS | Encounter Summary ---
Author Organization [facility] Address [address] [place] [address] Care Team Providers Care Content Specialist Name Role Phone Nanda Read MD Primary Care Provider Unavailable Encounter Details Date Type Department Care Team (Late st Contact Info) Description 02/28/2014 Results Only [facility] OBGYN Services - [address] [phone] Kassie Carreon PA-C 111 [facility], Level 2 [place] [address] Social History Tobacco Use Types [...] and Reconstructive Surgery - Medical Office Building [address] [address] Solange Garcia PA-C 792 [facility] Medical Office [facility], [address] [phone] documented as of this encounter Procedures Procedure [...] ? JO JONES ? Accession #: ? [id number] ? : ? 1965 (Age: 48) ??F [...] 33,35,39,45,51,52, 56,58,59,66, and 68 is detected by recycler mediated amplification. High and intermediate risk HPV [...] diagnosis. End of Report [facility] 02/28/2014 03/04/2014 us Kassie Carreon PA-C PATHOLOGY ORDERABLES F inal Result [facility] [address] [place] [address] documented in this encounter Visit Diagnoses Not on filedocumented in this encounter Care Teams Content Specialist Relationship Specialty Start Date End Date Nanda Read MD PCP - General 05/08/09 05/20/18 documented as of this encounter
--- OUTSIDE RECORDS SUMMARY | 2024-09-18 16:06 | XMS_ITS | Encounter Summary ---
Author Organization [facility] Address [address] [place] [address] Care Team Providers Care Meal Attendant Name Role Phone Nanda Read MD Primary Care Provider Unavailable Reason for Visit * Reason Onset Date Comments Biopsy Results 04/22/2014 Encounter Details Date Type Department Care Team (Late st Contact Info) Description 04/22/2014 Telephone [facility] OBGYN Services - [address] [phone] Katy Lubin MD 111 [facility], Level 4 [place] [address] Biopsy Results Social History Tobacco [...] Encounter - Katy Lubin MD - 04/22/2014 1033 EDT Patient called with biopsy results last [...] 02/05/2025 11:00 EDT Office Visit [facility] Pelvic Medicine and Reconstructive Surgery - Medical Office Building [facility] [address] [place] [address] Solange Garcia PA-C [address] [place] [address] Medical Office [facility], [address] [phone] documented as of this encounter Visit Diagnoses Not on filedocumented in this encounter Care Teams Meal Attendant Relationship Specialty Start Date End Date Nanda Read MD PCP - General 05/08/09 05/20/18 documented as of this encounter
--- OUTSIDE RECORDS SUMMARY | 2024-09-18 16:06 | XMS_ITS | Encounter Summary ---
Author Organization [facility] Address [address] [place] [address] Care Team Providers Care Alemite Operator Name Role Phone Nanda Read MD Primary Care Provider Unavailable Encounter Details Date Type Department Care Team (Late st Contact Info) Description 03/13/2017 Results Only [facility] OBGYN Services - [address] [address] Kassie Carreon PA-C 111 [facility], Level 2 [place] [address] Social History Tobacco Use Types [...] Description 02/05/2025 11:00 EDT Office Visit [facility] Pelvic Medicine and Reconstructive Surgery - Medical Office Building [facility] [address] [place] [address] Solange Garcia PA-C 792 [facility] Office [facility], [address] [phone] documented as of this encounter [...] ? JO JONES ? Accession #: ? [id number] ? : ? 1965 (Age: 51) ??F [...] 33,35,39,45,51,52, 56,58,59,66, and 68 is detected by electric lineman mediated amplification. High and intermediate risk HPV [...] confirmed the above diagnosis. End of Report [facility] 03/13/2017 03/14/2017 us Kassie Carreon PA-C PATHOLOGY ORDERABLES F inal Result [facility] [address] [place] [address] documented in this encounter Visit Diagnoses Not on filedocumented in this encounter Care Teams Alemite Operator Relationship Specialty Start Date End Date Nanda Read MD PCP - General 05/08/09 05/20/18 documented as of this encounter
--- OUTSIDE RECORDS SUMMARY | 2024-09-18 16:06 | XMS_ITS | Encounter Summary ---
Author Organization [facility] Address [address] [place] [address] Care Team Providers Care Car Pincher Name Role Phone Nanda Read MD Primary Care Provider Unavailable Reason for Visit * Reason Comments Follow-up Abnormal Paps. 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 On 08/15/2009, Martha underwent a LEEP [...] normal. Judgment and thought contentnormal. 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 Plan: There [...] Info) Description 02/05/2025 11:00 EDT Office Visit [facility] Pelvic Medicine and Reconstructive Surgery - Medical Office [place] [phone] Solange Garcia PA-C 2 [facility] Medical Office Building, [address] [place] [address] documented as of this encounter Visit Diagnoses Diagnosis HX OF CERVICAL DYSPLASIA- Primary Routine gynecological examination documented in this encounter Care Teams Car Pincher Relationship Specialty Start Date End Date Nanda Read MD PCP - General 05/08/09 05/20/18 documented as of this encounter
--- OUTSIDE RECORDS SUMMARY | 2024-09-18 16:06 | XMS_ITS | Encounter Summary ---
Author Organization [facility] Address [address] [place] [address] Care Team Providers Care Vaccine Manager Name Role Phone Nanda Read MD Primary Care Provider Unavailable Encounter Details Date Type Department Care Team (Late st Contact Info) Description 05/25/2012 Results Only [facility] OBGYN Services - [address] [phone] Kassie Carreon PA-C 111 [facility], Level 2 [place] [address] Social History Tobacco Use Types [...] Office Visit [facility] Pelvic Medicine and Reconstructive Surgery - Medical Office Building [address] [address] Solange Garcia PA-C 792 [facility] Medical Office [facility], [address] [phone] documented as of this encounter Procedures Procedure [...] ? JO JONES ? Accession #: ? [id number] ? : ? 1965 (Age: 46) ??F [...] reviewed and electronically signed by: ? RJ PACHEOC MD ? Report ??Date: 06/04/2012 15:02 HPV with Pap Test ? Date Ordered: ? 06/04/2012 ? Status: ?? Signed Out ?Date Complete: ? 06/08/2012 ? By: ??System Interface ? Date Reported: ? 06/08/2012 ? Interpretation RESULT: Positive for high or intermediate risk HPV. E6 OR E7 mRNA from one or more types of HPV types 16,18,31, 33,35,39,45,51,52, 56,58,59,66, and 68 is detected by dance teacher mediated amplification. High and intermediate risk HPV [...] diagnosis. End of Report [facility] 05/25/2012 05/28/2012 us Kassie Carreon PA-C PATHOLOGY ORDERABLES F inal Result [facility] [address] [place] [address] documented in this encounter Visit Diagnoses Not on filedocumented in this encounter Care Teams Vaccine Manager Relationship Specialty Start Date End Date Nanda Read MD PCP - General 05/08/09 05/20/18 documented as of this encounter
--- OUTSIDE RECORDS SUMMARY | 2024-09-18 16:06 | XMS_ITS | Encounter Summary ---
Author Organization [facility] Address [address] [place] [address] Care Team Providers Care Hand Profiler Name Role Phone Nanda Read MD Primary Care Provider Unavailable Encounter Details Date Type Department Care Team (Late st Contact Info) Description 04/08/2014 Results Only [facility] OBGYN Services - [address] [phone] Taco Cornejo MD 111 [facility], Level 4 [place] [phone] Social History Tobacco Use Types Packs/Day Years [...] and Reconstructive Surgery - Medical Office Building [facility] [address] [place] [address] Solange Garcia PA-C [address] [place] [address] Medical Office Building, [address] [phone] documented as of this encounter Procedures Procedure [...] ? JO JONES ? Accession #: ? [id number] ? : ? 1965 (Age: 48) ??F [...] 04/09/2014 03:39 PM End of Report [facility] 04/08/2014 15:2 0 EDT 04/09/2014 15:20 EDT us Taco Cornejo MD PATHOLOGY ORDERABLES Final Result [facility] [address] [place] [address] documented in this encounter Visit Diagnoses Not on filedocumented in this encounter Care Teams Hand Profiler Relationship Specialty Start Date End Date Nanda Read MD PCP - General 05/08/09 05/20/18 documented as of this encounter
--- OUTSIDE RECORDS SUMMARY | 2024-09-18 16:06 | XMS_ITS | Encounter Summary ---
Author Organization [facility] Address [address] [place] [address] Care Team Providers Care Manager Cancer Name Role Phone Nanda Read MD Primary Care Provider Unavailable Encounter Details Date Type Department Care Team (Late st Contact Info) Description 03/14/2017 Orders Only [facility] OBGYN Services - [address] [phone] Kassie Carreon PA-C 111 [facility], Level 2 [place] [address] Social History Tobacco Use Types [...] Start Date End Date terconazole (TERAZOL 3) 0.8 % vaginal cream Place 1 Applicator vaginally at bedtime for 6 days. For 6 nights 2 Tube 03/14/2017 7 documented in this encounter Plan of Treatment Upcoming Encounters Date Type Department Care Team (Late st Contact Info) Description 02/05/2025 11:00 EDT Office Visit [facility] Pelvic Medicine and Reconstructive Surgery - Medical Office Building [facility] [address] [place] [address] Solange Garcia PA-C [address] [place] [address] Medical Office [facility], [address] [phone] documented as of this encounter Visit Diagnoses Not on filedocumented in this encounter Care Teams Manager Cancer Relationship Specialty Start Date End Date Nanda Read MD PCP - General 05/08/09 05/20/18 documented as of this encounter
--- OUTSIDE RECORDS SUMMARY | 2024-09-18 16:06 | XMS_ITS | Encounter Summary ---
Author Organization [facility] Address [address] [place] [address] Care Team Providers Care Ferryboat Operator Name Role Phone Nanda Read MD Primary Care Provider Unavailable Reason for Visit * Reason Onset Date Comments Other 08/24/2015 compound medicat ion Encounter Details Date Type Department Care Team (Late st Contact Info) Description 08/24/2015 Telephone [facility] Pelvic Medicine and Reconstructive Surgery - Medical Office Building [address] [address] Thais Hubbard MD MPH 792 [facility] Medical Office [facility], [address] [address] Other (compound medication) Social History [...] once weekly. 12 Each 3 08/24/2015 9 Miscellaneous Medication - See Admin Instructions Boric Acid, 600 mg one supp. nightly x 14 nights. 14 Each 0 08/24/2015 9 documented in this encounter Miscellaneous Notes * [...] suppository prescription from [facility]. Office notes reviewed. [facility] notified. documented in this encounter Plan of Treatment Upcoming Encounters Date Type Department Care Team (Late st Contact Info) Description 02/05/2025 11:00 EDT Office Visit [facility] Pelvic Medicine and Reconstructive Surgery - Medical Office Building [facility] [address] [place] [address] Solange Garcia PA-C [address] [place] [address] Medical Office [facility], [address] [phone] documented as of this encounter Visit Diagnoses Not on filedocumented in this encounter Care Teams Ferryboat Operator Relationship Specialty Start Date End Date Nanda Read MD PCP - General 05/08/09 05/20/18 documented as of this encounter
--- OUTSIDE RECORDS SUMMARY | 2024-09-18 16:06 | XMS_ITS | Encounter Summary ---
Author Organization [facility] Address [address] [place] [address] Care Team Providers Care Pool Table Mechanic Name Role Phone Nanda Read MD Primary Care Provider Unavailable Reason for Visit * Reason Comments Vaginitis burning,itching Encounter Details Date Type Department Care Team (Late st Contact Info) Description 08/11/2014 13:30 EDT Office Visit [facility] OBGYN Services - [address] [address] Janet Wallace, SHIRA Vaginitis and vulvovaginitis, unspecified [...] For 3 nights. 1 Tube 2 08/11/2014 5 documented in this encounter Discharge Disposition Disposition Code Departure Means Destination Auto Discharge documented in this encounter Progress Notes * Janet Wallace FNP - 08/11/2014 1701 EDT Prob: Vaginal itching and burning S: [...] pap and HPV 1 year from colposcopy. Vba Developer declined by patient Does not appear satisfied [...] Info) Description 02/05/2025 11:00 EDT Office Visit [facility] Pelvic Medicine and Reconstructive Surgery - Medical Office Building [facility] [address] [place] [address] Solange Garcia PA-C [address] [place] [address] Medical Office Building, [address] [place] [phone] documented as of this encounter Procedures Procedure [...] material (specimen) 08/11/2014 17:21 EDT Janet Wallace ORNAMENTAL PLASTER STICKER POINT OF CARE TEST ORDERABLES F inal [...] documented as of this encounter Care Teams Pool Table Mechanic Relationship Specialty Start Date End Date Nanda Read MD PCP - General 05/08/09 05/20/18 documented as of this encounter
--- OUTSIDE RECORDS SUMMARY | 2024-09-18 16:06 | XMS_ITS | Encounter Summary ---
Author Organization [facility] Address [address] [place] [address] Care Team Providers Care Roving Hauler Name Role Phone Nanda Read MD Primary Care Provider Unavailable Reason for Visit * Reason Comments Follow-up yeast Encounter Details Date Type Department Care Team (Late st Contact Info) Description 09/24/2015 13:15 EST Office Visit [facility] PRODUCTION PLANNER SCHEDULER Pelvic Medicine and Reconstructive Surgery - Medical Office Building [facility] [address] [place] [phone] Thais Hubbard MD MPH 2 [facility] Medical Office [facility], [address] [phone] Chronic vaginitis (Primary Dx) Social [...] 1415 EST Patient here for follow up PRODUCTION PLANNER SCHEDULER Ultrasound is normal. She has only taken [...] Info) Description 02/05/2025 11:00 EDT Office Visit [facility] Pelvic Medicine and Reconstructive Surgery - Medical Office [address] [address] Solange Garcia PA-C [address] [place] [address] Office [facility], [address] [phone] documented as of this encounter Visit Diagnoses Diagnosis Chronic vaginitis- Primary Vaginitis and vulvovaginitis, unspecified documented in this encounter Care Teams Roving Hauler Relationship Specialty Start Date End Date Nanda Read MD PCP - General 05/08/09 05/20/18 documented as of this encounter
--- OUTSIDE RECORDS SUMMARY | 2024-09-18 16:06 | XMS_ITS | Encounter Summary ---
Author Organization [facility] Address [address] [place] [address] Care Team Providers Care Tile Mason Name Role Phone Nanda Read MD Primary Care Provider Unavailable Reason for Visit * Reason Comments Vaginal Discharge Itching and Burning Encounter Details Date Type Department Care Team (Late st Contact Info) Description 05/07/2015 13:00 EDT Office Visit [facility] OBGYN Services - [address] [address] Unknown, Provider, Mary Hardin MD Vaginal itching (Primary Dx) Discharge Disposition: [...] Refills Last Filled Start Date End Date hydrocortisone 1 % cream Apply topically to affected area 2 times daily as needed for Other (vaginal irritation) 1 Tube 1 05/07/2015 0 clindamycin (CLEOCIN) 2 % vaginal cream Place 1 Applicator vaginally at bedtime for 14 days 1 Tube 1 05/07/2015 5 documented in this encounter Discharge Disposition [...] Mary Rodriguez MD - 05/07/2015 1444 EDT accountant controller Clinic Visit Reason for Visit: Vaginal itching [...] using a new body wash. 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 Hx: On 08/15/2009, LEEP and laser of [...] Info) Description 02/05/2025 11:00 EDT Office Visit [facility] Pelvic Medicine and Reconstructive Surgery - Medical Office Building [address] [phone] Solange Garcia PA-C [address] [place] [address] Medical Office [facility], [address] [phone] documented as of this encounter Procedures Procedure [...] of unknown material (specimen) 05/07/2015 16:37 EDT us Parminder Quispe MD MSc POINT OF CARE TEST ORDERABLES Final Result documented in this encounter Visit Diagnoses Diagnosis Vaginal itching- Primary Pruritus of genital organs documented in this encounter Care Teams Tile Mason Relationship Specialty Start Date End Date Nanda Read MD PCP - General 05/08/09 05/20/18 documented as of this encounter
--- OUTSIDE RECORDS SUMMARY | 2024-09-18 16:06 | XMS_ITS | Encounter Summary ---
Author Organization [facility] Address [address] [place] [address] Care Team Providers Care Metal Window Screen Assembler Name Role Phone Nanda Read MD Primary Care Provider Unavailable Reason for Visit * Reason Onset Date Comments Other 09/08/2015 Encounter Details Date Type Department Care Team (Late st Contact Info) Description 09/08/2015 Telephone [facility] Pelvic Medicine and Reconstructive Surgery - Medical Office Building [facility] [address] [place] [phone] Thais Hubbard MD MPH 2 [facility] Medical Office [facility], [address] [phone] Other Social History Tobacco Use [...] Encounter - Line, BRENDAN Tang - 09/08/2015 0926 EST Martha calling to review option of Diflucan oral x [address] Boric Acid suppositories. Martha was advised that she would need to decrease her Oxycodone to 3 per day per 's notes. Martha has decided to pay out of pocket for Boric Acid suppositories and will contact [facility] to fill. * Telephone Encounter - Magaly Aden - 09/08/2015 1107 EST RETURNING CALL ABOUT MEDICATION QUESTIONS documented in this encounter Plan of Treatment Upcoming Encounters Date Type Department Care Team (Late st Contact Info) Description 02/05/2025 11:00 EDT Office Visit [facility] Pelvic Medicine and Reconstructive Surgery - Medical Office Building [facility] [address] [place] [address] Solange Garcia PA-C [address] [place] [address] Medical Office [facility], [address] [phone] documented as of this encounter Visit Diagnoses Not on filedocumented in this encounter Care Teams Metal Window Screen Assembler Relationship Specialty Start Date End Date Nanda Read MD PCP - General 05/08/09 05/20/18 documented as of this encounter
--- OUTSIDE RECORDS SUMMARY | 2024-09-18 16:06 | XMS_ITS | Encounter Summary ---
Author Organization [facility] Address [address] [place] [address] Care Team Providers Care Logistics Clerk Name Role Phone Nanda Read MD Primary Care Provider Unavailable Reason for Visit * Reason Onset Date Comments Other 03/11/2015 PAP TICKLER Encounter Details Date Type Department Care Team (Late st Contact Info) Description 03/11/2015 Telephone [facility] OBGYN Services - [address] [phone] Kassie Carreon PA-C 111 [facility], Level [address] [place] [address] Other (PAP TICKLER) Social History [...] Telephone Encounter - Magaly Aden - 03/11/2015 1532 EDT Martha Benoit arrived for her appointment with BERE Lynn on 03.06.2015 and had been removed from the pap tickler. Magaly Aden MA II documented in this encounter Plan of Treatment Upcoming Encounters Date Type Department Care Team (Late st Contact Info) Description 02/05/2025 11:00 EDT Office Visit [facility] Pelvic Medicine and Reconstructive Surgery - Medical Office Building [address] [address] Solange Garcia PA-C [address] [place] [address] Office [facility], [address] [phone] documented as of this encounter Visit Diagnoses Not on filedocumented in this encounter Care Teams Logistics Clerk Relationship Specialty Start Date End Date Nanda Read MD PCP - General 05/08/09 05/20/18 documented as of this encounter
--- OUTSIDE RECORDS SUMMARY | 2024-09-18 16:06 | XMS_ITS | Encounter Summary ---
Author Organization [facility] Address [address] [place] [address] Care Team Providers Care Marketing Performance Analyst Name Role Phone Nanda Read MD Primary Care Provider Unavailable Reason for Visit * Reason Comments Abnormal Pap Smear hr hpv Encounter Details Date Type Department Care Team (Late st Contact Info) Description 04/26/2016 15:00 EDT Office Visit [facility] OBGYN Services - [address] [phone] Jessica Nixon, POLO 111 [facility], [address] [place] [address] AIDEN I (cervical intraepithelial neoplasia [...] documented in this encounter Progress Notes * Cele Lopes - 05/04/2016 1335 EDT Patient added to tickler for pap and HR HPV due 04/2017 * Jessica Nixon, [facility] - 04/26/2016 1603 EDT Images from [...] colpo. She has been added to the makeristler reminder system for cotesting due 04/2017. SHIRA [...] and Reconstructive Surgery - Medical Office Building [facility] [address] [place] [address] Solange Garcia PA-C 2 [facility] Medical Office Building, [address] [place] [phone] Scheduled Orders Name Type Priority Associated Diagnoses [...] ? JO JONES ? Accession #: ? [id number] ? : ? 1965 (Age: 50) ??F ? Collect Date: ? 04/26/2016 ? Location: ? OBGYN ? Receive Date: ? 04/27/2016 ? Provider: JESSICA NIXON FARM IMPLEMENT MECHANIC Copy to: ? Final Pathologic Diagnosis: A. [...] Jackman 04/27/2016 4:44 PM End of Report [facility] 04/26/2016 12:3 7 EDT 04/27/2016 12:37 EDT us Jessica Nixon FARM IMPLEMENT MECHANIC PATHOLOGY ORDERABLES Final Res ult [facility] [address] [place] [address] documented in this encounter Visit Diagnoses Diagnosis AIDEN I (cervical intraepithelial neoplasia I)- Primary Mild dysplasia of cervix documented in this encounter Care Teams Marketing Performance Analyst Relationship Specialty Start Date End Date Nanda Read MD PCP - General 05/08/09 05/20/18 documented as of this encounter
--- OUTSIDE RECORDS SUMMARY | 2024-09-18 16:06 | XMS_ITS | Encounter Summary ---
Author Organization [facility] Address [address] [place] [address] Care Team Providers Care Adding Machine Operator Name Role Phone Nanda Read MD Primary Care Provider Unavailable Encounter Details Date Type Department Care Team (Late st Contact Info) Description 05/16/2017 Results Only [facility] OBGYN Services - [address] [address] Taco Cornejo MD 111 [facility], [address] 4 [place] [address] Social History Tobacco Use Types [...] Info) Description 02/05/2025 11:00 EDT Office Visit [facility] Pelvic Medicine and Reconstructive Surgery - Medical Office Building [facility] [address] [place] [address] Solange Garcia PA-C 792 [facility] [place] Office [facility], [address] [address] documented as of this encounter [...] ? JO JONES ? Accession #: ? [id number] ? : ? 1965 (Age: 51) ??F [...] (ASCP) 05/17/2017 5:39 PM End of Report [facility] 05/16/2017 14:3 6 EDT 05/17/2017 14:36 EDT us Taco Cornejo MD PATHOLOGY ORDERABLES Final Result [facility] [address] [place] [address] documented in this encounter Visit Diagnoses Not on filedocumented in this encounter Care Teams Adding Machine Operator Relationship Specialty Start Date End Date Nanda Read MD PCP - General 05/08/09 05/20/18 documented as of this encounter
--- OUTSIDE RECORDS SUMMARY | 2024-09-18 16:06 | XMS_ITS | Encounter Summary ---
Author Organization [facility] Address [address] [place] [address] Care Team Providers Care Office Analyst Name Role Phone Nanda Read MD Primary Care Provider Unavailable Reason for Visit * Reason Comments Gynecologic Exam Encounter Details Date Type Department Care Team (Late st Contact Info) Description 03/13/2017 9:30 EDT Office Visit [facility] OBGYN Services - [address] [address] Kassie Carreon PA-C 111 [facility], [address] 2 [place] [phone] Vaginal itching (Primary Dx); Cervical dysplasia; Encounter [...] Johnson * Kassie Carreon PA - 03/13/2017 8798 EDT Subjective: Patient ID: Martha Benoit is an 51 y.o. female. Chief Complaint Patient presents with ??? Gynecologic Exam HPI Chief complaint: HPI: Martha Benoit is a 51 y.o. 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 This ws done 2 years ago, and returned as NIL/negative HPV. Follow up pap again last year was NIL and positive for HR HPV, colposcopy in April,, biopsy benign. Plan for follow up pap and HPV in inone year, so she is here for this [...] Health Maintenance Mammogram: has them done at [facility] Colonoscopy: utd Cholesterol screening: through pcp [...] normal. Judgment and thought contentnormal. 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 Plan: There are no diagnoses linked to this encounter. Pap sent with HPV regardless, if NIL/negative, per colposcopy clinic, repeat in 3 years, then routine screening. If positive, return for colposcopy. Vaginitis exam sent to rule out yeast given recent vaginal itching. Self breast awareness, yearly mammogram. BERE Johnson documented in this encounter Plan of Treatment Upcoming Encounters Date Type Department Care Team (Late st Contact Info) Description 02/05/2025 11:00 EDT Office Visit [facility] Pelvic Medicine and Reconstructive Surgery - Medical Office Building [facility] [address] [place] [address] Solange Garcia PA-C 2 [facility] Medical Office [facility], [address] [address] Scheduled Orders Name Type Priority [...] Result Yeast forms present 03/13/2017 18:15 EDT [facility] Gram Smear Result Smear NOT consistent with bacterial vaginosis. 03/13/2017 18:15 EDT [facility] Result No Trichomonas antigen detected. 03/13/2017 16:30 EDT [facility] Specimen of unknown material (specimen) VAGINAL STRUCTURE / Unknown 03/13/2017 14:49 EDT 03/13/2017 15:41 EDT Comment:Specimen submitted o n a flocked swab. us Kassie Carreon PA-C MICROBIOLOGY - GENERAL ORDERABLES Final Result [facility] [address] [place] [address] documented in this encounter Visit Diagnoses Diagnosis Vaginal itching- Primary Pruritus of genital organs Cervical dysplasia Dysplasia of cervix, unspecified Encounter for gynecological examination without abnormal finding Routine gynecological examination documented in this encounter Care Teams Office Analyst Relationship Specialty Start Date End Date Nanda Read MD PCP - General 05/08/09 05/20/18 documented as of this encounter
--- OUTSIDE RECORDS SUMMARY | 2024-09-18 16:06 | XMS_ITS | Encounter Summary ---
Author Organization [facility] Address [address] [place] [address] Care Team Providers Care Acct Exec Name Role Phone Nanda Read MD Primary Care Provider Unavailable Reason for Referral * BLACK TOPPER (Routine) - Closed Specialty Diagnoses / Procedures Referred By Contac t Referred To Contact Diagnoses Chronic vaginitis Procedures NURSING TEACHER US PELVIS TRANSVAGINAL Thais Hubbard MD MPH Phone: tel: fax: Referral ID Status Reason Start Date Expiration Date Visits Re quested Visits Authorized [id number] Closed 08/18/2015 1 1 Reason for Visit * Reason Comments Vaginal Discharge Encounter Details Date Type Department Care Team (Late st Contact Info) Description 08/18/2015 13:30 EDT Office Visit [facility] NURSING TEACHER Pelvic Medicine and Reconstructive Surgery - Medical Office Building [address] [phone] Thais Hubbard MD MPH 2 [facility] Medical Office [facility], [address] [phone] Chronic vaginitis (Primary Dx) Social History Tobacco [...] once per week. Compunded script called to [facility] pharmacy Possible neurogenic component. Will consider lidocaine. I am somewhat concerned about recent increased irregular bleeding given obesity and previous hx ofHPV disease. Will check NURSING TEACHER ultrasound RTC 4-6 weeks after ultrasound. I [...] Description 02/05/2025 11:00 EDT Office Visit [facility] Pelvic Medicine and Reconstructive Surgery - Medical Office Building [facility] [address] [place] [address] Solange Garcia PA-C [address] [place] [address] Medical Office [facility], [address] [address] documented as of this encounter Procedures Procedure Name Priority Date/Time Associated Diagnosis Comments NURSING TEACHER US PELVIS TRANSVAGINAL Routine 09/24/2015 11:41 EST Chronic vaginitis ZZVAGINITIS EXAM Routine 08/18/2015 14:0 7 EDT Chronic vaginitis documented in this encounter Results * NURSING TEACHER US PELVIS TRANSVAGINAL (09/24/2015 11:41 EST) Anatomical [...] No free fluid visualized. Impression Transvaginal Pelvic [id number] normal ultrasound. Follow-up Follow-up as clinically indicated [...] No free fluid visualized. Impression Transvaginal Pelvic [id number] normal ultrasound. Follow-up Follow-up as clinically indicated with Dr Hubbard. Comment ========= Ultrasound findings discussed w/patient. Thais Hubbard MD MPH IMG US NURSING TEACHER ORDERABLES Final Result * VAGINITIS EXAM (08/18/2015 14:07 EDT) Gram Smear Result Mod Yeast forms 08/18/2015 23:38 EDT [facility] Result No Trichomonas antigen detected. 08/18/2015 22:48 EDT [facility] Gram Smear Result Smear NOT consistent with bacterial vaginosis. 08/18/2015 23:38 EDT [facility] Specimen of unknown material (specimen) VAGINAL STRUCTURE / Unknown 08/18/2015 14:07 EDT 08/18/2015 19:13 EDT Thais Hubbard MD MPH MICROBIOLOGY - GENERAL ORDERABLES Final Result [facility] [address] [place] [address] documented in this encounter Visit Diagnoses Diagnosis Chronic vaginitis- Primary Vaginitis and vulvovaginitis, unspecified documented in this encounter Care Teams Acct Exec Relationship Specialty Start Date End Date Nanda Read MD PCP - General 05/08/09 05/20/18 documented as of this encounter
--- OUTSIDE RECORDS SUMMARY | 2024-09-18 16:06 | XMS_ITS | Encounter Summary ---
Author Organization [facility] Address [address] [place] [address] Care Team Providers Care Learning And Development Director Name Role Phone Nanda Read MD Primary Care Provider Unavailable Reason for Visit * Reason Comments Follow-up Encounter Details Date Type Department Care Team (Late st Contact Info) Description 05/25/2012 15:00 EDT Office Visit [facility] OBGYN Services - [address] [phone] Kassie Carreon PA-C 111 [facility], [address] [place] [phone] LSIL (low grade squamous intraepithelial lesion) on [...] Progress Notes * Kassie Carreon, BERE - 05/25/2012 9157 EDT Subjective: Patient ID: Martha Benoit is [...] ??? Diabetes Sister ??? Heart Disease Sister [place] at age 42 = ??? Diabetes Mother [...] 02/05/2025 11:00 EDT Office Visit [facility] Pelvic Medicine and Reconstructive Surgery - Medical Office Building [address] [address] Solange Garcia PA-C [address] [place] [address] Office [facility], [address] [phone] documented as of this encounter Visit Diagnoses Diagnosis LSIL (low grade squamous intraepithelial lesion) on Pap smear- Primary Other nonspecific abnormal finding documented in this encounter Care Teams Learning And Development Director Relationship Specialty Start Date End Date Nanda Read MD PCP - General 05/08/09 05/20/18 documented as of this encounter
--- OUTSIDE RECORDS SUMMARY | 2024-09-18 16:06 | XMS_ITS | Encounter Summary ---
Author Organization [facility] Address [address] [place] [address] Care Team Providers Care Tip Inserter Name Role Phone Nanda Read MD Primary Care Provider Unavailable Reason for Visit * Reason Comments Follow-up six month follow up Encounter Details Date Type Department Care Team (Late st Contact Info) Description 02/01/2013 16:00 EDT Office Visit [facility] OBGYN Services - [address] [address] Kassie Carreon PA-C 111 [facility], Level [address] [place] [address] Cervical high risk human papillomavirus [...] Progress Notes * Kassie Carreon, BERE - 02/01/2013 1632 EDT Subjective: Patient ID: [...] and Reconstructive Surgery - Medical Office Building [facility] [address] [place] [phone] Solange Garcia PA-[address] Office [facility], [address] [place] [phone] documented as of this encounter Visit Diagnoses Diagnosis Cervical 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- Primary documented in this encounter Care Teams Tip Inserter Relationship Specialty Start Date End Date Nanda Read MD PCP - General 05/08/09 05/20/18 documented as of this encounter
--- OUTSIDE RECORDS SUMMARY | 2024-09-18 16:06 | XMS_ITS | Encounter Summary ---
Author Organization [facility] Address [address] [place] [address] Care Team Providers Care Applique Sewer Name Role Phone Nanda Read MD Primary Care Provider Unavailable Reason for Visit * Reason Onset Date Comments Results 03/31/2015 Encounter Details Date Type Department Care Team (Late st Contact Info) Description 03/31/2015 Telephone [facility] OBGYN Services - [facility] [address] [place], [place] [phone] Carolina Schroeder, RN Results Social History Tobacco [...] Miscellaneous Notes * Telephone Encounter - Carolina Schroeder, RN - 03/31/2015 1122 EDT PC/Pt: requesting [...] 02/05/2025 11:00 EDT Office Visit [facility] Pelvic Medicine and Reconstructive Surgery - Medical Office Building [address] [phone] Solange Garcia PA-C [address] [place] [address] Medical Office [facility], [address] [phone] documented as of this encounter Visit Diagnoses Not on filedocumented in this encounter Care Teams Applique Sewer Relationship Specialty Start Date End Date Nanda Read MD PCP - General 05/08/09 05/20/18 documented as of this encounter
--- OUTSIDE RECORDS SUMMARY | 2024-09-18 16:06 | XMS_ITS | Encounter Summary ---
Author Organization [facility] Address [address] [place] [address] Care Team Providers Care Web Ui Developer Name Role Phone Nanda Read MD Primary Care Provider Unavailable Encounter Details Date Type Department Care Team (Late st Contact Info) Description 09/24/2014 Results Only [facility] - [facility] [address] [place], [place] [phone] Angelica Montes MD [address] [place] [phone] Social History Tobacco Use Types Packs/Day Years [...] Info) Description 02/05/2025 11:00 EDT Office Visit [facility] Pelvic Medicine and Reconstructive Surgery - Medical Office Building [facility] [address] [place] [address] Solange Garcia PA-C 792 [facility] Medical Office Building, [address] [phone] documented as of this encounter Procedures Procedure [...] ? JO JONES ? Accession #: ? [id number] ? : ? 1965 (Age: 48) ??F [...] Johnson 09/24/2014 01:03 PM End of Report [facility] 09/23/2014 9:29 EST 09/24/2014 9:29 EST us Angelica Montes MD PATHOLOGY ORDERABLES Final Resu lt [facility] [address] [place] [address] documented in this encounter Visit Diagnoses Not on filedocumented in this encounter Care Teams Web Ui Developer Relationship Specialty Start Date End Date Nanda Read MD PCP - General 05/08/09 05/20/18 documented as of this encounter
--- OUTSIDE RECORDS SUMMARY | 2024-09-18 16:06 | XMS_ITS | Encounter Summary ---
Author Organization [facility] Address [address] [place] [address] Care Team Providers Care Lean Sensei Name Role Phone Nanda Read MD Primary Care Provider Unavailable Patrick Clement MD Primary Care Provider [phone] Ruth Munoz APRN Primary Care Provider + Encounter Details Date Type Department Care Team (Late st Contact Info) Description 04/08/2014 Orders Only [facility] OBGYN Services - [address] [address] Katy Lubin MD 111 [facility], [address] 4 [place] [address] Cervical high risk human papillomavirus [...] - Medical Office Building [facility] [address] [place] [address] Solange Garcia PA-C 2 [facility] Medical Office [facility], [address] [phone] documented as of this encounter Procedures Procedure [...] Unknown 04/08/2014 12:18 EDT 04/08/2014 16:28 EDT us Katy Lubin MD MICROBIOLOGY - GENERAL ORD ERABLES Final Result [facility] [address] [place] [address] documented in this encounter Visit Diagnoses Diagnosis Cervical 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 Vaginal discharge Leukorrhea, not specified as infective documented in this encounter Care Teams Lean Sensei Relationship Specialty Start Date End Date Nanda Read MD PCP - General 05/08/09 05/20/18 Patrick Clement MD PCP - General 05/21/18 04/25/19 Ruth Munoz APRN [address] [place] [phone] PCP - General 04/26/19 06/19/23 documented as of this encounter
--- OUTSIDE RECORDS SUMMARY | 2024-09-18 16:06 | XMS_ITS | Encounter Summary ---
Author Organization [facility] Address [address] [place] [address] Care Team Providers Care Eyeglass Fitter Name Role Phone Nanda Read MD Primary Care Provider Unavailable Encounter Details Date Type Department Care Team (Late st Contact Info) Description 09/24/2015 16:21 EST - 09/24/2015 23:59 EST Hospital Encounter [facility] [phone] Thais Ruvalcaba MD 111 [facility], Level [address] [place] [address] Discharge Disposition: Home or Self Care Social [...] this encounter Medications at Time of Discharge ergocalciferol (DRISDOL; VITAMIN D2) 1,250 mcg (50,000 unit) capsule Take 1 Capsule by mouth once a week. furosemide (LASIX) 40 mg tablet Take 1 Tablet by mouth daily. Reported on 03/13/2017 glipiZIDE (GLUCOTROL) 10 mg tablet Take 1 Tablet by mouth 2 times daily. insulin lispro (HUMALOG) 100 unit/mL injectionIndicatio ns:per patient insulin called 70/30 Inject into the skin 3 times daily. Sliding scale metformin (GLUCOPHAGE) 500 mg tablet Take 1 Tablet by mouth 3 times daily before meals. oxyCODONE-acetamin ophen (PERCOCET) 10-325 mg per tablet [...] Departure Means Destination Home or Self Senior Living documented in this encounter Plan of Treatment Upcoming Encounters Date Type Department Care Team (Late st Contact Info) Description 02/05/2025 11:00 EDT Office Visit [facility] Pelvic Medicine and Reconstructive Surgery - Medical Office Building [address] [phone] Solange Garcia PA-C [address] [place] [address] Medical Office [facility], [address] [phone] documented as of this encounter Visit Diagnoses Not on filedocumented in this encounter Care Teams Eyeglass Fitter Relationship Specialty Start Date End Date Nanda Read MD PCP - General 05/08/09 05/20/18 documented as of this encounter
--- OUTSIDE RECORDS SUMMARY | 2024-09-18 16:06 | XMS_ITS | Encounter Summary ---
Author Organization [facility] Address [address] [place] [address] Care Team Providers Care Countersinker Name Role Phone Nanda Read MD Primary Care Provider Unavailable Reason for Visit * Reason Comments Vaginitis Follow-up Encounter Details Date Type Department Care Team (Late st Contact Info) Description 06/04/2015 15:30 EDT Office Visit [facility] OBGYN Services - [address] [address] Parminder Quispe MD MSc Cohen, Courtney C, [...] Refills Last Filled Start Date End Date clindamycin (CLEOCIN) 2 % vaginal cream Place 1 Applicator vaginally daily for 7 days 1 Tube 1 06/04/2015 5 documented in this encounter Discharge Disposition [...] Mary Rodriguez MD - 06/04/2015 1627 EDT [facility] Follow-up Visit Reason for Visit: Follow-up [...] Office Building [facility] [address] [place] [phone] Solange Garcia PA-C [address] [place] [address] Medical Office [facility], [address] [phone] documented as of this encounter Visit Diagnoses Diagnosis Vaginitis- Primary Vaginitis and vulvovaginitis, unspecified documented in this encounter Care Teams Countersinker Relationship Specialty Start Date End Date Nanda Read MD PCP - General 05/08/09 05/20/18 documented as of this encounter
--- OUTSIDE RECORDS SUMMARY | 2024-09-18 16:06 | XMS_ITS | Encounter Summary ---
Author Organization [facility] Address [address] [place] [address] Care Team Providers Care Field Crop Harvest Contractor Name Role Phone Nanda Read MD Primary Care Provider Unavailable Encounter Details Date Type Department Care Team (Latest Contact Info) Description 09/23/2014 17:37 EST - 09/23/2014 23:59 EST Hospital Encounter [address] [address] Unknown, Provider, MD Discharge Disposition: Home or [...] times daily. insulin lispro (HUMALOG) 100 unit/mL injectionIndicat ions:per patient insulin called 70/30 Inject into the skin 3 times daily. Sliding scale metformin (GLUCOPHAGE) 500 mg tablet Take 1 Tablet by mouth 3 times daily before meals. oxyCODONE-acetam inophen (PERCOCET) 10-325 mg per tablet Take 1 Tablet by mouth every 4 hours as needed for Pain. Takes 5 tabs daily folic acid (FOLVITE) 1 mg tablet Take 1 mg by mouth daily. Reported on 03/13/2017 4 POTASSIUM CHLORIDE ORAL Take 10 mEq by mouth 2 times daily. Reported on 03/13/2017 9 terconazole (TERAZOL 3) 0.8 % vaginal cream Place 1 Applicator vaginally daily For 3 nights. 1 Tube 2 08/11/2014 5 documented as of this encounter Discharge Disposition Disposition Code Departure Means Destination Home or Self Longterm documented in this encounter Plan of Treatment Upcoming Encounters Date Type Department Care Team (Late st Contact Info) Description 02/05/2025 11:00 EDT Office Visit [facility] Pelvic Medicine and Reconstructive Surgery - Medical Office Building [facility] [address] [place] [address] Solange Garcia PA-C [address] [place] [address] Medical Office [facility], [address] [place] [phone] documented as of this encounter Visit Diagnoses Not on filedocumented in this encounter Care Teams Field Crop Harvest Contractor Relationship Specialty Start Date End Date Nanda Read MD PCP - General 05/08/09 05/20/18 documented as of this encounter
--- OUTSIDE RECORDS SUMMARY | 2024-09-18 16:06 | XMS_ITS | Encounter Summary ---
Author Organization [facility] Address [address] [place] [address] Care Team Providers Care City Designer Name Role Phone Nanda Read MD Primary Care Provider Unavailable Reason for Visit * Reason Onset Date Comments Vaginitis 08/18/2014 Encounter Details Date Type Department Care Team (Late st Contact Info) Description 08/18/2014 Telephone [facility] OBGYN Services - [facility] [address] [place] [address] Oliva Wasserman RN Vaginitis Social History Tobacco [...] Last Filled Start Date End Date metroNIDAZOLE (METROGEL) 0.75 % vaginal gel Place 1 Applicator vaginally daily for 5 days Please dispense 1 box of 5 applicators. Thank you.. 1 Tube 0 08/19/2014 4 documented in this encounter Miscellaneous Notes * Telephone Encounter - Janet Wallace FNP - 08/19/2014 1130 EDT Still burning and itching. Really wants previous med used before my visit. Thinks it was a pill from Dr. Lubin April 2014. States that med resolved her symptoms. Lives in [place] and cannot come back for appt. Any [...] and Reconstructive Surgery - Medical Office Building [facility] [address] [place] [address] Solange Garcia PA-C [address] [facility] Medical Office [facility], [address] [phone] documented as of this encounter Visit Diagnoses Not on filedocumented in this encounter Discontinued Medications Medication Sig Discontinue Reason Start Date End Da te metronidazole (METROGEL) 0.75 % vaginal gel Place 1 Applicator vaginally daily for 5 days. Please dispense 1 box of 5 applicators. Thank you. Reorder 11/29/2010 08/19/2014 documented as of this encounter Care Teams City Designer Relationship Specialty Start Date End Date Nanda Read MD PCP - General 05/08/09 05/20/18 documented as of this encounter
--- OUTSIDE RECORDS SUMMARY | 2024-09-18 16:06 | XMS_ITS | Encounter Summary ---
Author Organization [facility] Address [address] [place] [address] Care Team Providers Care Apron Worker Name Role Phone Nanda Read MD Primary Care Provider Unavailable Reason for Visit * Reason Onset Date Comments Results 04/15/2014 Encounter Details Date Type Department Care Team (Late Contact Info) Description 04/15/2014 Telephone [facility] OBGYN Services - [facility] [address] [place], [place] [phone] Saadia Yan, RN Results Social History Tobacco [...] Miscellaneous Notes * Telephone Encounter - Saadia Yan, BRENDAN - 04/15/2014 4951 EDT Pt calling and asking for results of colpo done 04/08/14. Dr Lubin will call pt. She can be reachedat Or . documented in this encounter Plan of Treatment Upcoming Encounters Date Type Department Care Team (Late st Contact Info) Description 02/05/2025 11:00 EDT Office Visit [facility] Pelvic Medicine and Reconstructive Surgery - Medical Office Building [facility] [address] [place] [phone] Solange Garcia PA-C 2 [facility] Medical Office Building, [address] [place] [phone] documented as of this encounter Visit Diagnoses Not on filedocumented in this encounter Care Teams Apron Worker Relationship Specialty Start Date End Date Nanda Read MD PCP - General 05/08/09 05/20/18 documented as of this encounter
--- OUTSIDE RECORDS SUMMARY | 2024-09-18 16:06 | XMS_ITS | Encounter Summary ---
Author Organization [facility] Address [address] [place] [address] Care Team Providers Care Orthopedic Technician Name Role Phone Nanda Read MD Primary Care Provider Unavailable Reason for Visit * Reason Comments Follow-up Encounter Details Date Type Department Care Team (Late st Contact Info) Description 03/06/2015 15:00 EDT Office Visit [facility] OBGYN Services - [address] [address] Kassie Carreon PA-C [address] [place] [address], [address] [place] [address] Routine gynecological examination (Primary Dx); [...] abnormal pap smears, nowhere for her annual guest attendant exam. On 08/15/2009, Martha underwent a LEEP [...] normal. Judgment and thought contentnormal. Assessment: Yearly guest attendant exam. Follow up, AIDEN 1 with history [...] Description 02/05/2025 11:00 EDT Office Visit [facility] Pelvic Medicine and Reconstructive Surgery - Medical Office Building [facility] [address] [place] [address] Solange Garcia PA-C [address] [place] [address] Medical Office [facility], [address] [phone] Scheduled Orders Name Type Priority [...] Smear Result Yeast forms 03/06/2015 22:[address] [facility] Result No Trichomonas antigen detected. 03/06/2015 22:[address] [facility] Gram Smear Result Unable to rule out the presence of bacterial vaginosis. 03/06/2015 22:[address] [facility] Specimen of unknown material (specimen) VAGINAL STRUCTURE / Unknown 03/06/2015 15:44 EDT 03/06/2015 17:28 EDT Kassie Carreon PA-C MICROBIOLOGY - GENERAL ORDERABLES Final Result Performing Organization Address City/State/[facility] Co de Phone Number [facility] [address] [place] [address] documented in this encounter Visit Diagnoses Diagnosis Routine gynecological examination- Primary Vaginal discharge Leukorrhea, not specified as infective documented in this encounter Care Teams Orthopedic Technician Relationship Specialty Start Date End Date Nanda Read MD PCP - General 05/08/09 05/20/18 documented as of this encounter
--- OUTSIDE RECORDS SUMMARY | 2024-09-18 16:06 | XMS_ITS | Encounter Summary ---
Author Organization [facility] Address [address] [place] [address] Care Team Providers Care Sample Stitcher Name Role Phone Nanda Read MD Primary Care Provider Unavailable Encounter Details Date Type Department Care Team (Late st Contact Info) Description 03/06/2015 Results Only [facility] OBGYN Services - [address] [phone] Kassie Carreon PA-C [address] [facility], [address] [place] [address] Social History Tobacco Use Types [...] Info) Description 02/05/2025 11:00 EDT Office Visit [facility] Pelvic Medicine and Reconstructive Surgery - Medical Office Building [address] [address] Solange Garcia PA-C 792 [facility] Medical Office [facility], [address] [phone] documented as of this encounter Procedures Procedure [...] ? JO JONES ? Accession #: ? [id number] ? : ? 1965 (Age: 49) ??F ?Collect Date: ? 03/06/2015 ? Location: ? OBGYN ? Receive Date: ? 03/10/2015 ? Provider: KASSIE BLACKBURN Copy to: ? Final Report SPECIMEN ADEQUACY ? Satisfactory for Evaluation - transformation zone component present GENERAL CATEGORIZATION ? Negative for Intraepithelial Lesion or Malignancy INTERPRETATION ? Reactive cellular changes associated with inflammation present (includes repair). Last Menstrual Period: 12/25/14 Previous Gynecologic Pathology: AIDEN I: Last Year Treatment History: LEEP: H/o Specimen/Source: ??Pap Test, Cervix/Endocervix, ThinPrep Imaging System with manual evaluation Document reviewed and electronically signed by: ? SYLVESTER ALEJANDRA MD ? Report ??Date: 03/20/2015 15:41 HPV with Pap Test ? Date Ordered: ? 03/20/2015 ? Status: ?? Signed Out ?Date Complete: ? 03/24/2015 ? By: ??System Interface ? Date Reported: ? 03/24/2015 ? Interpretation RESULT: Negative for HPV. No E6 or E7 mRNA is detected from HPV types 16,18,31,33,35, 39,45,51,52,56,58, 59,66, and 68 by firmware developer mediated amplification. Comments Document reviewed and electronically signed by: ? System Interface ? Report date: 03/24/2015 By the signature above, the attending physician certifies that he/she has personally conducted a gross and/or microscopic examination of the described specimens and rendered or confirmed the above diagnosis. End of Report [facility] 03/06/2015 03/10/2015 us Kassie Carreon PA-C PATHOLOGY ORDERABLES F inal Result [facility] [address] [place] [address] documented in this encounter Visit Diagnoses Not on filedocumented in this encounter Care Teams Sample Stitcher Relationship Specialty Start Date End Date Nanda Read MD PCP - General 05/08/09 05/20/18 documented as of this encounter
--- OUTSIDE RECORDS SUMMARY | 2024-09-18 16:06 | XMS_ITS | Encounter Summary ---
Author Organization [facility] Address [address] [place] [address] Care Team Providers Care Laundry Aid Name Role Phone Nanda Read MD Primary Care Provider Unavailable Reason for Visit * Reason Onset Date Comments Medication Management 08/26/2015 Encounter Details Date Type Department Care Team (Late st Contact Info) Description 08/26/[address] [facility] OBGYN Services - [facility] [address] [place] [address] Oliva Wasserman, roof fitter Management Social History Tobacco Use Types Packs/Day [...] Note - Sabrina Tinoco RN - 08/28/2015 6676 ESTAddended by: ROSALIA TINOCO on: 08/28/2015 11:36 [...] to do. thx * Telephone Encounter - Oliva Wasserman RN - 08/26/2015 1325 EST Spoke with Vasile Carreon, recommended I follow-up with Dr. Hubbard, vulvovag specialist. Notifying Dr. Hubbard regarding substitution. * Telephone Encounter - Oliva Wasserman RN - 08/26/2015 1100 EST Patient recently seen by Dr. Hubbard 08/18/15. 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 Compunded script was sent to [facility] pharmacy. States that [facility] pharmacy does not accept medicaid and she cannot afford the $120 out of pocket expense. She is looking for a substitution and would like Vasile Carreon opinion. She verbalizes that she is raw and tired of waiting for one year to find a medication that works. Pharmacy confirmed: [facility] [place], [place]. documented in this encounter Plan of Treatment Upcoming Encounters Date Type Department Care Team (Late st Contact Info) Description 02/05/2025 11:00 EDT Office Visit [facility] Pelvic Medicine and Reconstructive Surgery - Medical Office Building [facility] [address] [place] [address] Solange Garcia PA-C 2 [facility] Medical Office [facility], [address] [phone] documented as of this encounter Visit Diagnoses Not on filedocumented in this encounter Care Teams Laundry Aid Relationship Specialty Start Date End Date Nanda Read MD PCP - General 05/08/09 05/20/18 documented as of this encounter
--- OUTSIDE RECORDS SUMMARY | 2024-09-18 16:06 | XMS_ITS | Encounter Summary ---
Author Organization [facility] Address [address] [place] [address] Care Team Providers Care Cementer Machine Applicator Name Role Phone Nanda Read MD Primary Care Provider Unavailable Reason for Visit * Reason Onset Date Comments Medication Management 08/25/2015 Encounter Details Date Type Department Care Team (Late st Contact Info) Description 08/25/2015 Telephone [facility] TABULAR TYPIST Pelvic Medicine and Reconstructive Surgery - Medical Office [facility] [address] [place] [phone] Thais Hubbard MD MPH 2 [facility] Office [facility], [address] [phone] Medication Management Social History Tobacco [...] and Reconstructive Surgery - Medical Office Building [facility] [address] [place] [address] Solange Garcia PA-C [address] [place] [address] Medical Office [facility], [address] [phone] documented as of this encounter Visit Diagnoses Not on filedocumented in this encounter Care Teams Cementer Machine Applicator Relationship Specialty Start Date End Date Nanda Read MD PCP - General 05/08/09 05/20/18 documented as of this encounter
--- OUTSIDE RECORDS SUMMARY | 2024-09-18 16:07 | XMS_ITS | Encounter Summary ---
Author Organization [facility] Address [address] [place] [address] Care Team Providers Care Carpenter Streetcar Name Role Phone Nanda Read MD Primary Care Provider Unavailable Encounter Details Date Type Department Care Team (Late st Contact Info) Description 04/22/2010 Results Only [facility] OBGYN Services - [address] [phone] Trevor Burnham MD [address] [facility], [address] [place] [phone] Social History Tobacco Use Types Packs/Day Years Used Date Smoking Tobacco: Never Assessed Comments No Sex and Gender Information Value Date Recorded Sex Assigned at Female 02/22/2021 15:01 EDT Legal Sex Female 17:38 EST Gender Identity Female 04/30/2020 8:27 EDT Sexual Orientation Straight 02/22/2021 15 :01 EDT documented as of this encounter Plan of Treatment Upcoming Encounters Date Type Department Care Team (Late st Contact Info) Description 02/05/2025 11:00 EDT Office Visit [facility] Pelvic Medicine and Reconstructive Surgery - Medical Office Building [facility] [address] [place] [address] Solange Garcia PA-C 7[address] [facility] Medical Office [facility], [address] [place] [phone] documented as of this encounter Procedures Procedure [...] ? JO JONES ? Accession #: ? [id number] ? : ? 1965 (Age: 44) ??F ? Collect Date: ? 04/22/2010 ? Location: ? [facility] ? Receive Date: ? 04/23/2010 ? Provider: TERRELL BURNHAM MD ? Copy to: ? Final Pathologic Diagnosis: ? Endometrium, biopsy: ? 1. ?Endometrium with extensive menstrual-type breakdown. ? 2. ? Benign squamous and endocervical epithelium. ? Document reviewed and electronically signed by: ? Tru Casper, MBChB ? Report ??Date: 04/28/2010 14:08 ? By [...] Guzman)/natalya ? End of Report ? [facility] 04/22/2010 04/23/2010 13: 16 EDT us Trevor Burnham MD PATHOLOGY ORDERABLES Final Resul t [facility] [address] [place] [address] documented in this encounter Visit Diagnoses Not on filedocumented in this encounter Care Teams Carpenter Streetcar Relationship Specialty Start Date End Date Nanda Read MD PCP - General 05/08/09 05/20/18 documented as of this encounter
--- OUTSIDE RECORDS SUMMARY | 2024-09-18 16:07 | XMS_ITS | Encounter Summary ---
Author Organization [facility] Address [address] [place] [address] Care Team Providers Care Forensic Economist Name Role Phone Nanda Read MD Primary Care Provider Unavailable Encounter Details Date Type Department Care Team (Late st Contact Info) Description 07/15/2009 9:09 EDT - 07/15/2009 16:45 EDT Hospital Encounter [facility] Perioperative Services- [address] [address] Nidhi Burnham MD 111 [facility], [address] [place] [address] Discharge Disposition: Home or Self Care Social History Tobacco Use Types Packs/Day Years Used Date Smoking Tobacco: Never Assessed Comments Unknown Sex and Gender Information Value Date Recorded [...] - 07/15/2009 1440 EDT Operative Note Surgeon: Nidhi Burnham MD Scientific Linguist: Lissette Selby MD Pre-Op Dx/Indications: LSIL/ASCUS with [...] PACU--> Home Lissette Selby MD 07/15/09 1439 Cosigned by Nidhi Burnham MD at 07/15/2009 14:51 EDT documented in this encounter Discharge Instructions [...] this encounter Medications at Time of Discharge furosemide (LASIX) 40 mg tablet Take 1 [...] Inpatient, Physician - 07/20/2009 1220 EDT * Nidhi Burnham MD - 07/10/2009 1031 EDT This is H&P for surgery on 07/15. Plse also refer to PCP medical clearance note (not in PRISM). [facility] Care [facility] Division of Gynecologic Oncology [facility], [address] [place] [address] NEW PATIENT EVALUATION - 06/26/2009 Clive Ramos MD [facility] METAL PATTERN MAKER [address] [place] [address] [address] [facility] [address] Dear Otto: Thank you very much for [...] progress. Sincerely and respectfully, Electronically Signed by Nidhi Burnham MD 06/30/2009 09:26 Nidhi Burnham MD Director, Division of Gynecologic Oncology - Nidhi Burnham MD - DIS Job ID: [id number] Doc ID: [id number] cc: MD Clive Archuleta MD 07/15/09 There are no changes in H&P. documented in this encounter Procedure Notes * Lissette Selby MD - 07/15/2009 3459 EDTProcedure(s): LEEP; CERVIX LESION DESTRUCTION Operative Note Surgeon: Nidhi Burnham MD Scientific Linguist: Lissette Selby MD Pre-Op Dx/Indications: LSIL/ASCUS with [...] PACU--> Home Lissette Selby MD 07/15/09 1439 Cosigned by Nidhi Burnham MD at 07/15/2009 14:51 EDT documented in this encounter OR Notes * OR PreOp - Inpatient, Physician - 07/20/2009 1220 EDT * Anesthesia Preprocedure Evaluation - Inpatient, Physician - 07/16/2009 1046 EDT * OR Surgeon - Nidhi Burnham MD - 07/16/2009 0000 EDT PROCEDURE REPORT PT TYPE: OPPROC SERVICE DATE: 07/16/2009 SURGEON: Nidhi Burnham MD RN FAMILY PRACTICE: Lissette Selby MD PREOPERATIVE DIAGNOSIS: Persistent cervical [...] posterior lip and second pass. COMPLICATIONS: None. Nidhi Burnham MD Director, Division of Gynecologic Oncology - Nidhi Burnham MD A - [facility] Job ID: [id number] Document ID: [id number] cc: MD Clive Archuleta MD * Anesthesia [...] Office Visit [facility] Pelvic Medicine and Reconstructive Surgery - Medical Office Building [address] [address] Solange Garcia PA-C 2 [facility] Medical Office [facility], [address] [phone] documented as of this encounter [...] ? JO JONES ? Accession #: ? [id number] ? : ? 1965 (Age: 43) ??F ?Collect Date: ? 09/24/2009 ? Location: ? [facility] ? Receive Date: ? 09/25/2009 ? Provider: ?NIDHI BURNHAM MD ? Copy [...] (ASC-US). ? EDUCATIONAL NOTES/RECOMMENDATI ONS ? FORMERLY [facility] recommends following the 2006 Consensus Guidelines for the Management of Women with Abnormal Cervical Cancer Screening Tests (JLGTD, ? 2007;11(4):201-222 ). ??Consensus guidelines are available online at ? www.ASCCP.org. ? Document reviewed and electronically signed by: ? UZAIR MOUNT MD ? Report Date: ??09/30/2009 17:29 ? End of Report ? [facility] 09/24/2009 09/25/2009 us Nidhi Burnham MD PATHOLOGY ORDERABLES Final Resul t Performing Organization Address [facility] de Phone Number [facility] [address] [place] [address] * GLUCOSE, GLUCOMETER (07/15/2009 15:21 EDT) Glucose, Fingerstick 91 70 - 100 mg/dl [facility] Hardware Installer ID [id number] Test Performed by Nursing Services [facility] 07/15/2009 15:2 1 EDT 07/15/2009 15:22 EDT us Nidhi Burnham MD CHEMISTRY & BLOOD GAS ORDERABLES Final Result Performing Organization Address [facility] de Phone Number [facility] [address] [place] [address] * GLUCOSE, GLUCOMETER (07/15/2009 13:47 EDT) Glucose, Fingerstick 85 70 - 100 mg/dl [facility] Hardware Installer ID [id number] Test Performed by Nursing Services [facility] 07/15/2009 13:4 7 EDT 07/15/2009 13:49 EDT us Nidhi Burnham MD CHEMISTRY & BLOOD GAS ORDERABLES Final Result Performing Organization Address [facility] de Phone Number [facility] [address] [place] [address] * (ABNORMAL) GLUCOSE, GLUCOMETER (07/15/2009 10:25 EDT) Pathologist [facility] Glucose, Fingerstick 144(H) 70 - 100 mg/dl [facility] Hardware Installer ID [id number] Test Performed by Nursing Services [facility] 07/15/2009 10:2 5 EDT 07/15/2009 13:24 EDT Nidhi Burnham MD CHEMISTRY & BLOOD GAS ORDERABLES Final Result Performing Organization Address [facility] de Phone Number [facility] [address] [place] [address] * SURGICAL PATHOLOGY (07/15/2009 0:00 EDT) Pathologist [facility] Pathology Report: SURGICAL PATHOLOGY REPORT ? Reports generated via electronic interface contain original data; ? however they are lacking the format of the original report. ? Caution should be taken when reading/interpreti ng unformatted reports. ? Name: ? JO JONES ? Accession #: ? [id number] ? : ? 1965 (Age: 43) ??F [...] reviewed and electronically signed by: ? SEMAJ J BUTNOR MD ? Report ??Date: 07/17/2009 16:29 ? [...] (A3). ? Received in normal saline labelled Jo Jones and posterior cervix are two russell-gordon unoriented [...] (C6). ? Received in normal saline labelled Cy, Jo and second pass is a ? russell-gordon, [...] [facility] 07/15/2009 07/15/2009 16: 23 EDT us Nidhi Burnham MD PATHOLOGY ORDERABLES Final Resul t [facility] [address] [place] [address] documented in this encounter Visit Diagnoses Not [...] may reflect changes made after this encounter. furosemide (LASIX) 40 mg tablet Take 1 Tablet by mouth daily. Reported on 03/13/2017 oxyCODONE-acetam inophen (PERCOCET) 10-325 mg per tablet [...] 1025 (New Bag - Prov ider: Trini Jackson, BRENDAN) PRN Medication Order 07/13/2009 07/14/2009 07/15/2009 oxycodone-acetaminophen (PERCOCET) 5-325 mg per tablet 2 Tab (COMPLETED) 2 Tablet, oral, PRN, 1 dose, Starting on Mon07/15/09 at 1422, Until Mon07/15/09 at 1643, Pain, Routine, Recovery (only) 1643 (Given - Provid er: Analy Fulton RN) documented in this encounter Orders Medications [...] 07/15/2009 documented in this encounter Care Teams Forensic Economist Relationship Specialty Start Date End Date Nanda Read MD PCP - General 05/08/09 05/20/18 documented as of this encounter
--- OUTSIDE RECORDS SUMMARY | 2024-09-18 16:07 | XMS_ITS | Encounter Summary ---
Author Organization [facility] Address [address] [place] [address] Care Team Providers Care Amusement Park Worker Name Role Phone Nanda Read MD Primary Care Provider Unavailable Encounter Details Date Type Department Care Team (Late st Contact Info) Description 11/17/2009 Abstract [facility] OBGYN Services - [address] 180[address] Nanda Read MD Social History Tobacco Use [...] Description 02/05/2025 11:00 EDT Office Visit [facility] Pelvic Medicine and Reconstructive Surgery - Medical Office Building [address] [phone] Solange Garcia PA-C [address] [place] [address] Medical Office [facility], [address] [phone] documented as of this encounter Visit Diagnoses Not on filedocumented in this encounter Historical Medications * This list may reflect changes made after this encounter. potassium chloride SA (K-DUR) 20 mEq tablet Take 20 mEq by mouth daily. 01/28/2010 added in this encounter Care Teams Amusement Park Worker Relationship Specialty Start Date End Date Nanda Read MD PCP - General 05/08/09 05/20/18 documented as of this encounter
--- OUTSIDE RECORDS SUMMARY | 2024-09-18 16:07 | XMS_ITS | Encounter Summary ---
Author Organization [facility] Address [address] [place] [address] Care Team Providers Care Lan Administrator Name Role Phone Nanda Read MD Primary Care Provider Unavailable Reason for Visit * Reason Comments Follow-up 08/15/2009 s/p LEEP procedure of the cervix and extensive laser vaporization of the posterior vaginal fornix Encounter Details Date Type Department Care Team (Late st Contact Info) Description 12/31/2009 13:15 EST Office Visit [facility] OBGYN Services - [address] [address] Trevor Julian MD [address] [place] [address], [address] [place] [address] Mild dysplasia of cervix; Dysplasia [...] Medicine and Reconstructive Surgery - Medical Office [facility] [address] [place] [phone] Solange Garcia PA-C [address] [place] [address] Medical Office [facility], [address] [phone] Scheduled Orders Name Type Priority Associated Diagnoses Orde r Schedule PAP TEST- ORDER ONLY Pathology Routine Mild Dysplasia of Cervix Dysplasia of Vagina Ordered: 12/31/2009 documented as of this encounter Visit Diagnoses Diagnosis Mild dysplasia of cervix Dysplasia of vagina documented in this encounter Care Teams Lan Administrator Relationship Specialty Start Date End Date Nanda Read MD PCP - General 05/08/09 05/20/18 documented as of this encounter
--- OUTSIDE RECORDS SUMMARY | 2024-09-18 16:07 | XMS_ITS | Encounter Summary ---
Author Organization [facility] Address [address] [place] [address] Care Team Providers Care Deaf/Hard Of Hearing Specialist Name Role Phone Nanda Read MD Primary Care Provider Unavailable Encounter Details Date Type Department Care Team (Late st Contact Info) Description 03/14/2000 Results Only [facility] - Maple conversion [address] [place] [address] Nanda Read MD Social History Tobacco Use [...] Info) Description 02/05/2025 11:00 EDT Office Visit [facility] Pelvic Medicine and Reconstructive Surgery - Medical Office Building [facility] [address] [place] [phone] Solange Garcia PA-C [address] [place] [address] Medical Office [facility], [address] [phone] documented as of this encounter Procedures Procedure [...] ? JO JONES ? Accession #: ? [id number] : ? 1965 (Age: 34) ??F ?Collect Date: ? 03/14/2000 Location: ? [facility] ? Receive Date: ? 03/16/2000 Provider: ?NANDA READ MD Copy to: ? [...] Date: ??03/30/2000 14:53 End of Report [facility] 03/14/2000 03/16/2000 us Nanda Read MD PATHOLOGY ORDERABLES Fi nal Result [facility] [address] [place] [address] documented in this encounter Visit Diagnoses Not on filedocumented in this encounter Care Teams Deaf/Hard Of Hearing Specialist Relationship Specialty Start Date End Date Nanda Read MD PCP - General 05/08/09 05/20/18 documented as of this encounter
--- OUTSIDE RECORDS SUMMARY | 2024-09-18 16:07 | XMS_ITS | Encounter Summary ---
Author Organization [facility] Address [address] [place] [address] Care Team Providers Care Shower Attendant Name Role Phone Nanda Read MD Primary Care Provider Unavailable Encounter Details Date Type Department Care Team (Late st Contact Info) Description 04/12/2010 Abstract [facility] Bariatric Surgery - [address] [phone] Clara Wade, MOLD WORKER [address] [facility] [address] [phone] Social History Tobacco Use Types Packs/Day Years [...] Office Visit [facility] Pelvic Medicine and Reconstructive Surgery - Medical Office Building [facility] [address] [place] [address] Solange Garcia PA-C 7[address] [facility] Medical Office Building, [address] [place] [phone] documented as of this encounter Visit Diagnoses Not on filedocumented in this encounter Care Teams Shower Attendant Relationship Specialty Start Date End Date Nanda Read MD PCP - General 05/08/09 05/20/18 documented as of this encounter
--- OUTSIDE RECORDS SUMMARY | 2024-09-18 16:07 | XMS_ITS | Encounter Summary ---
Author Organization [facility] Address [address] [place] [address] Care Team Providers Care Wind Farm Operations Manager Name Role Phone Nanda Read MD Primary Care Provider Unavailable Encounter Details Date Type Department Care Team (Late st Contact Info) Description 06/24/2010 Results Only [facility] OBGYN Services - [address] [phone] Trevor Burnham MD [address] [facility], [address] [place] [phone] Social History Tobacco Use Types Packs/Day Years [...] Description 02/05/2025 11:00 EDT Office Visit [facility] Pelvic Medicine and Reconstructive Surgery - Medical Office Building [facility] [address] [place] [address] Solange Garcia PA-C [address] [place] [address] Medical Office [facility], [address] [phone] documented as of this encounter Procedures Procedure [...] ? JO JONES ? Accession #: ? [id number] ? : ? 1965 (Age: 44) ??F [...] reviewed and electronically signed by: ? Ingrid Felton, CT(ASCP) ? Report Date: ??07/01/2010 07:51 ? End of Report ? [facility] 06/24/2010 06/24/2010 us Trevor Burnham MD PATHOLOGY ORDERABLES Final Resul t [facility] [address] [place] [address] documented in this encounter Visit Diagnoses Not on filedocumented in this encounter Care Teams Wind Farm Operations Manager Relationship Specialty Start Date End Date Nanda Read MD PCP - General 05/08/09 05/20/18 documented as of this encounter
--- OUTSIDE RECORDS SUMMARY | 2024-09-18 16:07 | XMS_ITS | Encounter Summary ---
Author Organization [facility] Address [address] [place] [address] Care Team Providers Care Boiler Attendant Name Role Phone Nanda Read MD Primary Care Provider Unavailable Reason for Visit * Reason Onset Date Comments Other 01/01/2010 test results; pl an of care Encounter Details Date Type Department Care Team (Late st Contact Info) Description 01/01/2010 Telephone [facility] Bariatric Surgery - [place] [address] [place] [address] Ximena Mercado, BRENDAN [address] [place] [address] Other (test results; plan of care) Social [...] Info) Description 02/05/2025 11:00 EDT Office Visit [facility] Pelvic Medicine and Reconstructive Surgery - Medical Office Building [facility] [address] [place] [address] Solange Garcia PA-C [address] [place] [address] Office [facility], [address] [phone] documented as of this encounter Visit Diagnoses Not on filedocumented in this encounter Care Teams Boiler Attendant Relationship Specialty Start Date End Date Nanda Read MD PCP - General 05/08/09 05/20/18 documented as of this encounter
--- OUTSIDE RECORDS SUMMARY | 2024-09-18 16:07 | XMS_ITS | Encounter Summary ---
Author Organization [facility] Address [address] [place] [address] Care Team Providers Care Form Raiser Name Role Phone Unavailable Primary Care Provider Unavailabl e Encounter Details Date Type Department Care Team (Late st Contact Info) Description 04/28/2009 Orders Only [facility] Laboratory Services - [facility] ([facility] [address] [place] [address] Nanda Read MD Social History Tobacco Use [...] Info) Description 02/05/2025 11:00 EDT Office Visit [facility] Pelvic Medicine and Reconstructive Surgery - Medical Office Building [facility] [address] [place] [phone] Solange Garcia PA-C 7[address] [facility] Medical Office [facility], [address] [phone] documented as of this encounter Procedures Procedure [...] ? JO JONES ? Accession #: ? [id number] ? : ? 1965 (Age: 43) ??F [...] significance (ASC-US). ? EDUCATIONAL NOTES/RECOMMENDATI ONS ? [facility] recommends following the 2006 Consensus Guidelines for the Management of Women with Abnormal Cervical Cancer Screening Tests (JLGTD, ? 2007;11(4):201-222 ). ??Consensus guidelines are available online at ? www.ASCCP.org. ? Document reviewed and electronically signed by: ? Sima Charlton. Javi, MD PhD ? Report Date: ??05/07/2009 12:18 ? End of Report ? [facility] 04/28/2009 05/01/2009 us Nanda Read MD PATHOLOGY ORDERABLES Fi nal Result [facility] [address] [place] [address] documented in this encounter Visit Diagnoses Not on filedocumented in this encounter
--- OUTSIDE RECORDS SUMMARY | 2024-09-18 16:07 | XMS_ITS | Encounter Summary ---
[place] [address] Care Team Providers Care Licensed Customs Broker Name Role Phone Ruth Munoz LARRY Primary Care Provider + Reason for Visit * Reason Comments Prior Authorization Cosentyx Sensoready 300mg (150mg/ml) SOAJ Encounter Details Date Type Department Care Team (Late st Contact Info) Description 07/29/2024 Specialty [place] [address] Gertrudis Siddiqi, PULLMAN CLERK Social History Tobacco Use Types Packs/Day Years [...] this encounter Progress Notes * Gertrudis Siddiqi CPHT - 07/29/2024 3:56 PM EDT [facility], Medication Prior Authorization Submission Patient: Martha Marrry Patient : 1965 Patient Address: [address] [facility] [phone] (home) Medication Name: COSENTYX PEN 300 MG/2 PENS (150 MG/ML) SUBCUTANEOUS Medication ID: [id number] Subscriber Insurance: [place] Subscriber Insurance Comment: Fax: Physician: TERRANCE LYNN Physician Comment: Sent Via: Fax Kessler: Ref/Case/PA#: Medication Strength Frequency Requested: Cosentyx 300mg, INJECT THE CONTENTS OF TWO PENS (300 MG) SUBCUTANEOUSLY ONCE EVERY 28 DAYS Qty/Day Supply: 12/20 New Start: Renewal Diagnosis & ICD-10 Code: Psoriasis L40.9 Patient Notified: No Submission Notes: None Gertrudis Siddiqi CPHT 07/29/24 4:00 PM * Gertrudis Siddiqi CPHT - 07/29/2024 3:56 PM EDT [facility], Prior Authorization Approval Medication Name: COSENTYX PEN 300 MG/2 PENS (150 MG/ML) SUBCUTANEOUS Medication ID: [id number] Approval Dates: 07/29/2024 to 07/29/2025 Insurance requirements/notes: None Other Notes: None Case/Reference #: [id number] Approval notification Received via: Fax Copay: 0.00 Copay assistance: Copay Notes: Insurance mandated Pharmacy: [facility] Fill[facility] at [facility]: Yes Patient Notified: No Pharmacy staff will be reaching out to the patient to inform them of their medication's [facility]. If applicable, a pharmacist will speak with the patient to offer our specialty pharmacy services and to arrange delivery of their medication. Gertrudis Siddiqi CPHT 07/30/24 11:33 AM documented in this encounter Plan of Treatment Upcoming Encounters Date Type Department Care Team (Late st Contact Info) Description 02/19/2025 9:00 AM EDT TH Visit (TeleHealth) [place] [address] Wyatt Higgins MD [facility] [place] [address] documented as of this encounter Visit Diagnoses Not on filedocumented in this encounter Care Teams Licensed Customs Broker Relationship Specialty Start Date End Date Ruth Munoz APRN [address] [place] [address] PCP - General Family Medicine 02/05/19 documented as of this encounter
--- OUTSIDE RECORDS SUMMARY | 2024-09-18 16:07 | XMS_ITS | Encounter Summary ---
Author Organization [facility] Address [address] [place] [address] Care Team Providers Care Director Multiple Sclerosis Center Name Role Phone Unavailable Primary Care Provider Unavailabl e Encounter Details Date Type Department Care Team (Late st Contact Info) Description 10/04/2005 14:10 EST Hospital Encounter [facility] [address] [place] [address] Raegan Schwartz MD [facility] [address] [place] [address] Discharge Disposition: Auto Discharge Social History Tobacco [...] and Reconstructive Surgery - Medical Office Building [facility] [address] [place], [place] [address] Solange Garcia PA-C 7[address] [facility] Medical Office [facility], [address] [place] [phone] documented as of this encounter Procedures Procedure Name Priority Date/Time Associated Diagnosis Comments FLOW CYTOMETRY Routine 06/24/2009 17:13 EDT HPV DETECTION, HIGH RISK TYPES Routine 04/28/2009 14:06 EDT FL HYSTEROSALPINGOGRAM 10/04/200 5 14:44 EST documented in this encounter Results * FLOW CYTOMETRY (06/24/2009 17:13 EDT) Pathologist [facility] Pathology Report: FLOW CYTOMETRY REPORT ? Reports generated via electronic interface contain original data; ? however they are lacking the format of the original report. ? Caution should be taken when reading/interpreting unformatted reports. ? Name: ? JO JONES ? Accession #: ? [id number] ? : [...] 06/24/2009 17:1 3 EDT 06/24/2009 20:00 EDT us Nanda Sade Read MD PATHOLOGY ORDERABLES Fi nal Result Performing Organization Address [facility] Co de Phone Number [facility] [address] [place] [address] * HUMAN PAPILLOMA VIRUS DNA TEST (04/28/2009 14:06 EDT) Specimen Description Cervix, ThinPrep vial [facility] Result Positive for one or more of HPV types 16,18,31,33,35 ,39,45,51,52,5 6,58,59, or 68. These high/intermedi ate risk HPV types are associated with dysplasia and some cervical cancers. [facility] Report Status Final 05/14/2009 [facility] 04/28/2009 14:0 6 EDT 05/07/2009 14:06 EDT us Nanda Sade Read MD MICROBIOLOGY - GENERAL ORDERABLES Final Result Performing Organization Address [facility] de Phone Number [facility] [address] [place] [address] * FL HYSTEROSALPINGOGRAM (10/04/2005 14:44 EST) Anatomical [...] Two filling defects within the uterine cavity. /adelfo us Khalida Ga MD IMG FLUOROSCOPY ORD ERABLES Final Result documented in this encounter Visit Diagnoses Not on filedocumented in this encounter
--- OUTSIDE RECORDS SUMMARY | 2024-09-18 16:07 | XMS_ITS | Encounter Summary ---
Author Organization [facility] Address [address] [place] [address] Care Team Providers Care Moisture Conditioner Operator Name Role Phone Nanda Read MD Primary Care Provider Unavailable Encounter Details Date Type Department Care Team (Late st Contact Info) Description 08/07/2002 Results Only [facility] - Maple conversion [address] [place] [address] Nanda Read MD Social History Tobacco Use [...] Description 02/05/2025 11:00 EDT Office Visit [facility] Pelvic Medicine and Reconstructive Surgery - Medical Office Building [facility] [address] [place] [phone] Solange Garcia PA-C [address] [place] [address] Medical Office [facility], [address] [phone] documented as of this encounter Procedures Procedure [...] ? JO JONES ? Accession #: ? [id number] : ? 1965 (Age: 36) ??F ?Collect Date: ? 08/07/2002 Location: ? [facility] ? Receive Date: ? 08/09/2002 Provider: ?NANDA READ MD Copy to: ? [...] Date: ??08/19/2002 15:10 End of Report [facility] 08/07/2002 08/09/2002 us Nandamerritt Read MD PATHOLOGY ORDERABLES Fi nal Result [facility] [address] [place] [address] documented in this encounter Visit Diagnoses Not on filedocumented in this encounter Care Teams Moisture Conditioner Operator Relationship Specialty Start Date End Date Nanda Read MD PCP - General 05/08/09 05/20/18 documented as of this encounter
--- OUTSIDE RECORDS SUMMARY | 2024-09-18 16:07 | XMS_ITS | Encounter Summary ---
[place] [address] Care Team Providers Care Cinder Man Name Role Phone Ruth Munoz LARRY Primary Care Provider + Encounter Details Date Type Department Care Team (Latest Contact Info) Description 09/06/2024 Specialty [place] [address] Sukhdev Ga RPH Refill Coordination - 28 [...] Progress Notes * Sukhdev Ga RPH - 09/06/2024 11:25 AM EST Clinical Management Plan: Refill Specialty Pharmacy Consultation; Sukhdev Ga RPH Comprehensive Medication Management (CMM) Ms. Martha Benoit is a 58 y.o. (1965) female who was contacted in regard to a specialty medication refill reminder. The patient requested a refill of Secukinumab. A review of the medication therapy was performed. The medication was refilled as scheduled, and all medication related questions andconcerns were addressed. The specialty pharmacy staff will follow up with the patient 5-7 days prior to next refill. Was a change made to the Care Plan: No Medication Therapy Recommendations No medication therapy recommendations to display Allergies and Drug intolerance: No Known Allergies Medication Reconciliation Discrepancies (compared to [facility] med list) No Review Flowsheet 09/06/2024 11:26 AM Assessment What is the name of the [...] drug regimen were made. Sukhdev Ga RPH 09/06/24 11:26 AM documented in this encounter Plan of Treatment Upcoming Encounters Date Type Department Care Team (Late st Contact Info) Description 02/19/2025 9:00 AM EDT TH Visit (TeleHealth) [place] [address] Wyatt Higgins MD [facility] [place] [address] documented as of this encounter Visit Diagnoses Not on filedocumented in this encounter Care Teams Cinder Man Relationship Specialty Start Date End Date Ruth Munoz APRN [address] [place] [address] PCP - General Family Medicine 02/05/19 documented as of this encounter
--- OUTSIDE RECORDS SUMMARY | 2024-09-18 16:07 | XMS_ITS | Encounter Summary ---
Author Organization [facility] Address [address] [place] [address] Care Team Providers Care High School Band Director Name Role Phone Nanda Read MD Primary Care Provider Unavailable Reason for Visit * Reason Comments Follow-up f/u pap Encounter Details Date Type Department Care Team (Late st Contact Info) Description 06/24/2010 9:[address] [facility] OBGYN Services - [address] [address] Trevor Julian MD 111 [facility], Level [address] [place] [address] Abnormal Pap smear (Primary Dx) [...] - 06/24/2010 1038 EDT Clive Ramos MD [address] [place] [address] Dear Otto: Just a note to keep [...] no CCE Assessment: Today, I explained to Martha that I am very pleased with how [...] Sincerely, Trevor Julian MD Director, Division of Adhesive Bandage Machine Operator [facility] CC: NANDA READ MD documented in this encounter Plan of Treatment Upcoming Encounters Date Type Department Care Team (Late st Contact Info) Description 02/05/2025 11:[address] [facility] Pelvic Medicine and Reconstructive Surgery - Medical Office Building [facility] [address] [place] [address] Solange Garcia PA-C [address] [place] [address] Medical Office Building, [address] [phone] Scheduled Orders Name Type Priority Associated Diagnoses Orde r Schedule PAP TEST- ORDER ONLY Pathology Routine Abnormal Pap Smear Ordered: 06/24/2010 documented as of this encounter Visit Diagnoses Diagnosis Abnormal Pap smear- Primary Other nonspecific abnormal finding documented in this encounter Care Teams High School Band Director Relationship Specialty Start Date End Date Nanda Read MD PCP - General 05/08/09 05/20/18 documented as of this encounter
--- OUTSIDE RECORDS SUMMARY | 2024-09-18 16:07 | XMS_ITS | Encounter Summary ---
Author Organization [facility] Address [address] [place] [address] Care Team Providers Care Fish Boning Machine Feeder Name Role Phone Nnada Read MD Primary Care Provider Unavailable Encounter Details Date Type Department Care Team (Late st Contact Info) Description 12/31/2009 Results Only [facility] OBGYN Services - [address] [address] Nidhi Burnham MD 111 [facility], Level 4 [place] [phone] Social History Tobacco Use Types Packs/Day Years [...] Info) Description 02/05/2025 11:00 EDT Office Visit [facility] Pelvic Medicine and Reconstructive Surgery - Medical Office Building [facility] [address] [place] [address] Solange Garcia PA-C 792 [facility] Medical Office [facility], [address] [place] [phone] documented as of this encounter Procedures Procedure [...] 16:02 EDT Nidhi Burnham MD MICROBIOLOGY - GENERAL ORDERABLE S Final Result [facility] [address] [place] [address] * CYTOPATHOLOGY (12/31/2009 0:00 EST) Pathology Report: CYTOPATHOLOGY REPORT ? Reports generated via electronic interface contain original data; ? however they are lacking the format of the original report. ? Caution should be taken when reading/interpreti ng unformatted reports. ? Name: ? JO JONES ? Accession #: ? [id number] ? : ? 1965 (Age: 44) ??F [...] significance (ASC-US). ? EDUCATIONAL NOTES/RECOMMENDATI ONS ? [facility] recommends following the 2006 Consensus Guidelines for the Management of Women with Abnormal Cervical Cancer Screening Tests (JLGTD, ? 2007;11(4):201-222 ). ??Consensus guidelines are available online at ? www.ASCCP.org. ? Document reviewed and electronically signed by: ? Sima J. Caldwell, MD PhD ? Report Date: ??01/05/2010 14:20 ? End of Report ? [facility] 12/31/2009 01/01/2010 us Nidhi Burnham MD PATHOLOGY ORDERABLES Final Resul t [facility] [address] [place] [address] documented in this encounter Visit Diagnoses Not on filedocumented in this encounter Care Teams Fish Boning Machine Feeder Relationship Specialty Start Date End Date Nanda Read MD PCP - General 05/08/09 05/20/18 documented as of this encounter
--- OUTSIDE RECORDS SUMMARY | 2024-09-18 16:07 | XMS_ITS | Encounter Summary ---
Author Organization [facility] Address [address] [place] [address] Care Team Providers Care Manager Scheduling Name Role Phone Nanda Read MD Primary Care Provider Unavailable Reason for Visit * Reason Comments Follow-up Hx abnormal PAPs. Encounter Details Date Type Department Care Team (Late st Contact Info) Description 11/28/2011 10:00 EST Office Visit [facility] OBGYN Services - [facility] [address] [place], [place] [phone] Trevor Julian MD 111 [facility] [address] [place] [address] Kassie Carreon PA-C 111 [facility] 2 [place] [address] Mild dysplasia of cervix (Primary [...] ??? Diabetes Sister ??? Heart Disease Sister [place] at age 42 = ??? Diabetes Mother [...] Info) Description 02/05/2025 11:00 EDT Office Visit [facility] Pelvic Medicine and Reconstructive Surgery - Medical Office Building [address] [address] Solange Garcia PA-[address] Medical Office [facility], [address] [address] documented as of this encounter Visit Diagnoses Diagnosis Mild dysplasia of cervix- Primary documented in this encounter Care Teams Manager Scheduling Relationship Specialty Start Date End Date Nanda Read MD PCP - General 05/08/09 05/20/18 documented as of this encounter
--- OUTSIDE RECORDS SUMMARY | 2024-09-18 16:07 | XMS_ITS | Encounter Summary ---
Author Organization [facility] Address [address] [place] [address] Care Team Providers Care Track Laying Equipment Operator Name Role Phone Unavailable Primary Care Provider Unavailabl e Encounter Details Date Type Department Care Team (Late st Contact Info) Description 11/11/2008 Before PRISM Converted Visit (Maple) [facility] - Maple conversion [address] [place] [address] Nanda Read MD Social History Tobacco Use [...] Description 02/05/2025 11:[address] [facility] Pelvic Medicine and Reconstructive Surgery - Medical Office Building [facility] [address] [place] [phone] Solange Garcia PA-C [address] [place] [address] Medical Office [facility], [address] [phone] documented as of this encounter Procedures Procedure [...] ? JO JONES ? Accession #: ? [id number] ? : ? 1965 (Age: 42) ??F [...] ? (LSIL). ? EDUCATIONAL NOTES/RECOMMENDATI ONS ? [facility] recommends following the 2006 Consensus Guidelines for the Management of Women with Abnormal Cervical Cancer Screening Tests (JLGTD, ? 2007;11(4):201-222 ). ??Consensus guidelines are available online at ? www.ASCCP.org. ? Document reviewed and electronically signed by: ? Cathy L. Sheikh, MD ? Report Date: ??11/17/2008 12:40 ? End of Report ? KIM[facility] CARUSO 11/11/2008 11/13/2008 us Nanda Sade Read MD PATHOLOGY ORDERABLES Fi nal Result [facility] CARUSO [address] [place] [address] documented in this encounter Visit Diagnoses Not on filedocumented in this encounter
--- OUTSIDE RECORDS SUMMARY | 2024-09-18 16:07 | XMS_ITS | Encounter Summary ---
Author Organization [facility] Address [address] [place] [address] Care Team Providers Care Director Of Accounts Receivable Name Role Phone Nanda Read MD Primary Care Provider Unavailable Encounter Details Date Type Department Care Team (Late st Contact Info) Description 02/27/2006 Results Only [facility] - Maple conversion [address] [place] [address] Nanda Read MD Social History Tobacco Use [...] 11:00 EDT Office Visit [facility] Pelvic Medicine and Reconstructive Surgery - Medical Office Building [facility] [address] [place] [phone] Solange Garcia PA-C [address] [place] [address] Medical Office [facility], [address] [phone] documented as of this encounter Procedures Procedure [...] ? JO JONES ? Accession #: ? [id number] : ? 1965 (Age: 40) ??F ?Collect Date: ? 02/27/2006 Location: ? [facility] ? Receive Date: ? 03/01/2006 Provider: ?NANDA READ MD Copy to: ? Specimen/Source: ?ThinPrep Pap Test, Cervix/Endocervix, processed on [employer] ThinPrep Imaging System, with manual evaluation Last Menstrual Period: ? 02/12/06 ? SPECIMEN ADEQUACY ? Satisfactory for Evaluation - transformation zone component present GENERAL CATEGORIZATION ? Negative for Intraepithelial Lesion or Malignancy INTERPRETATION ? Reactive cellular changes associated with inflammation present (includes repair). ? Document reviewed and electronically signed by: ? Ingrid Zepeda MD ? Report Date: ??03/09/2006 17:09 End of Report KIMBERLY CARUSO 02/27/2006 03/01/2006 us Nanda Read MD PATHOLOGY ORDERABLES Fi nal Result [facility] CARUSO [address] [place] [address] documented in this encounter Visit Diagnoses Not on filedocumented in this encounter Care Teams Director Of Accounts Receivable Relationship Specialty Start Date End Date Nanda Read MD PCP - General 05/08/09 05/20/18 documented as of this encounter
--- OUTSIDE RECORDS SUMMARY | 2024-09-18 16:07 | XMS_ITS | Encounter Summary ---
Author Organization [facility] Address [address] [place] [address] Care Team Providers Care Ham Doctor Name Role Phone Nanda Read MD Primary Care Provider Unavailable Encounter Details Date Type Department Care Team (Late st Contact Info) Description 11/28/2011 Results Only [facility] OBGYN Services - [address] [phone] Nidhi Burnham MD 111 [facility], Level 4 [place] [phone] Social History Tobacco Use Types Packs/Day Years [...] Info) Description 02/05/2025 11:00 EDT Office Visit [facility] Pelvic Medicine and Reconstructive Surgery - Medical Office Building [facility] [address] [place] [address] Solange Garcia PA-C [address] [place] [address] Medical Office [facility], [address] [address] documented as of this encounter Procedures Procedure [...] when reading/interpreti ng unformatted reports. Name: ? ROBERTJERI SINCLAIRIE Moon ? Accession #: ? [id number] : ? 1965 (Age: 46) ??F ?Collect [...] of Report [facility] 11/28/2011 11/29/2011 us Nidhi Burnham MD PATHOLOGY ORDERABLES Final Resul t Performing Organization Address City/State/[facility] Co de Phone Number [facility] [address] [place] [address] documented in this encounter Visit Diagnoses Not on filedocumented in this encounter Care Teams Ham Doctor Relationship Specialty Start Date End Date Nanda Read MD PCP - General 05/08/09 05/20/18 documented as of this encounter
--- OUTSIDE RECORDS SUMMARY | 2024-09-18 16:07 | XMS_ITS | Encounter Summary ---
Author Organization [facility] Address [address] [place] [address] Care Team Providers Care Junior Automation Engineer Name Role Phone Nanda Read MD Primary Care Provider Unavailable Encounter Details Date Type Department Care Team (Late st Contact Info) Description 01/22/2010 Abstract [facility] Bariatric Surgery - [address] [address] Nanda Read MD Morbid obesity ([facility]) Social History Tobacco Use Types [...] and Reconstructive Surgery - Medical Office [address] [address] Solange Garcia PA-C [address] [place] [address] Office [facility], [address] [phone] documented as of this encounter Visit Diagnoses Diagnosis Morbid obesity ([facility]) Morbid obesity documented in this encounter Care Teams Junior Automation Engineer Relationship Specialty Start Date End Date Nanda Read MD PCP - General 05/08/09 05/20/18 documented as of this encounter
--- OUTSIDE RECORDS SUMMARY | 2024-09-18 16:07 | XMS_ITS | Encounter Summary ---
Author Organization [facility] Address [address] [place] [address] Care Team Providers Care Jute Bag Cutting Machine Operator Name Role Phone Nanda Read MD Primary Care Provider Unavailable Patrick Clement MD Primary Care Provider [phone] Ruth Munoz APRN Primary Care Provider + Katia Haywood Primary Care Provider [phone] Encounter Details Date Type Department Care Team (Late st Contact Info) Description 01/27/2010 Documentation Visit [facility] Bariatric Surgery [address] Social History Tobacco Use [...] Info) Description 02/05/2025 11:00 EDT Office Visit [facility] Pelvic Medicine and Reconstructive Surgery - Medical Office Building [address] [address] Solange Garcia PA-C 792 [facility], [address] [phone] documented as of this encounter Visit Diagnoses Not on filedocumented in this encounter Care Teams Jute Bag Cutting Machine Operator Relationship Specialty Start Date End Date Nanda Read MD PCP - General 05/08/09 05/20/18 Patrick Clement MD PCP - General 05/21/18 04/25/19 Ruth Munoz APRN [address] [place] [address] PCP - General 04/26/19 06/19/23 Katia Haywood [address] [place] [address] PCP - General Family Medicine - Primary Care 06/20/23 documented as of this encounter
--- OUTSIDE RECORDS SUMMARY | 2024-09-18 16:07 | XMS_ITS | Encounter Summary ---
Author Organization [facility] Address [address] [place] [address] Care Team Providers Care Workforce Development Specialist Name Role Phone Nanda Read MD Primary Care Provider Unavailable Encounter Details Date Type Department Care Team (Late st Contact Info) Description 12/01/2009 Orders Only [facility] General Surgery - [address] [phone] Trip Alvarado MD [address] [place] [phone] Social History Tobacco Use Types Packs/Day [...] and Reconstructive Surgery - Medical Office Building [facility] [address] [place] [address] Solange Garcia PA-C [address] [place] [address] Medical Office [facility], [address] [place] [phone] documented as of this encounter Procedures Procedure [...] ? JO JONES ? Accession #: ? [id number] ? : ? 1965 (Age: 44) ??F [...] levels have been examined on specimen (B). Metal Mold Dresser sections ?? of (B) have been reviewed at intradepartmental consultation conference. ??( ?? Tao)/mms ? Document reviewed and electronically signed by: ? SEMAJ Charlton BUTNOR MD ? Report ??Date: 12/03/2009 16:07 ? [...] Bynum's ? Gross Description: ? Received in [facility] fixative labelled Cy, Jo and antrum R/O [...] 0.2 x 0.2 cm, submitted as (C). (Cherelle Yao)/[facility] ? End of Report ? KIMBERLY CARUSO 12/01/2009 12/01/2009 14: 03 EST us Trip Alvarado MD PATHOLOGY ORDERABLES Final Result Performing Organization Address City/State/[facility] Co [place] [address] documented in this encounter Visit Diagnoses Not on filedocumented in this encounter Care Teams Workforce Development Specialist Relationship Specialty Start Date End Date Nanda Read MD PCP - General 05/08/09 05/20/18 documented as of this encounter
--- OUTSIDE RECORDS SUMMARY | 2024-09-18 16:07 | XMS_ITS | Encounter Summary ---
Author Organization [facility] Address [address] [place] [address] Care Team Providers Care Displayer Name Role Phone Nanda Read MD Primary Care Provider Unavailable Patrick Clement MD Primary Care Provider Ruth Munoz APRN Primary Care Provider + Katia Haywood Primary Care Provider [phone] Encounter Details Date Type Department Care Team (Late st Contact Info) Description 04/12/2010 Documentation Visit [facility] B[facility]ric Surgery [facility] [address] [place], [place] [address] Clara Wade APRN 61 [facility] [address] [phone] Social History Tobacco Use Types Packs/Day Years [...] and Reconstructive Surgery - Medical Office [facility] [address] [place], [place] [phone] Solange Garcia PA-C 792 [facility] Medical Office Building, [address] [place] [address] documented as of this encounter Visit Diagnoses Not on filedocumented in this encounter Care Teams Displayer Relationship Specialty Start Date End Date Nanda Read MD PCP - General 05/08/09 05/20/18 Patrick Clement MD PCP - General 05/21/18 04/25/19 Ruth Munoz APRN [address] [place] [phone] PCP - General 04/26/19 06/19/23 Katia Haywood [address] [place] [address] PCP - General Family Medicine - Primary Care 06/20/23 documented as of this encounter
--- OUTSIDE RECORDS SUMMARY | 2024-09-18 16:07 | XMS_ITS | Encounter Summary ---
Author Organization [facility] Address [address] [place] [address] Care Team Providers Care Fur Finisher Tailor Name Role Phone Nanda Read MD Primary Care Provider Unavailable Encounter Details Date Type Department Care Team (Late st Contact Info) Description 08/05/[address] [facility] OBGYN Services - [address] [phone] Nanda Read MD Mild Dysplasia of Cervix; [...] and Reconstructive Surgery - Medical Office Building [address] [phone] Solange Garcia PA-C [address] [place] [address] Medical Office [facility], [address] [phone] documented as of this encounter Visit Diagnoses Diagnosis Mild dysplasia of cervix Dysplasia of vagina documented in this encounter Care Teams Fur Finisher Tailor Relationship Specialty Start Date End Date Nanda Read MD PCP - General 05/08/09 05/20/18 documented as of this encounter
--- OUTSIDE RECORDS SUMMARY | 2024-09-18 16:07 | XMS_ITS | Encounter Summary ---
Author Organization [facility] Address [address] [place] [address] Care Team Providers Care Commercial Installer Name Role Phone Unavailable Primary Care Provider Unavailabl e Encounter Details Date Type Department Care Team (Late st Contact Info) Description 09/27/2005 10:21 EST - 09/27/2005 11:59 EST Hospital Encounter [address] [address] Khalida Ga MD [address] [place] [phone] Discharge Disposition: Auto Discharge Social History Tobacco [...] 02/05/2025 11:00 EDT Office Visit [facility] Pelvic Medicine and Reconstructive Surgery - Medical Office Building [facility] [address] [place] [address] Solange Garcia PA-C 792 [facility] Medical Office [facility], [address] [place] [phone] documented as of this encounter Visit Diagnoses Not on filedocumented in this encounter
--- OUTSIDE RECORDS SUMMARY | 2024-09-18 16:07 | XMS_ITS | Encounter Summary ---
Author Organization [facility] Address [address] [place] [address] Care Team Providers Care Food Service Order Clerk Name Role Phone Nanda Read MD Primary Care Provider Unavailable Encounter Details Date Type Department Care Team (Late st Contact Info) Description 07/11/2001 Results Only [facility] - Maple conversion [address] [place] [address] Nanda Read MD Social History Tobacco Use [...] 02/05/2025 11:00 EDT Office Visit [facility] Pelvic Medicine and Reconstructive Surgery - Medical Office Building [facility] [address] [place] [address] Solange Garcia PA-C [address] [place] [address] Medical Office [facility], [address] [phone] documented as of this encounter Procedures Procedure [...] ? JO JONES ? Accession #: ? [id number] : ? 1965 (Age: 35) ??F ?Collect Date: ? 07/11/2001 Location: ? [facility] ? Receive Date: ? 07/16/2001 Provider: ?NANDA READ MD Copy to: ? Specimen/Source: ?ThinPrep Pap Test, Source Not Provided Last Menstrual Period: ? SPECIMEN ADEQUACY ? Satisfactory for evaluation. GENERAL CATEGORIZATION ? Benign Cellular Changes DESCRIPTIVE DIAGNOSIS ? Fungal organisms present morphologically consistent with Kelly species. ? Document reviewed and electronically signed by: ? Kim Felipe, HUMAIRA(ASCP)(IAC) ? Report Date: ??07/17/2001 09:21 End of Report [facility] CAR[facility] 07/11/2001 07/16/2001 us Nanda Read MD PATHOLOGY ORDERABLES Fi nal Result [facility] [address] [place] [address] documented in this encounter Visit Diagnoses Not on filedocumented in this encounter Care Teams Food Service Order Clerk Relationship Specialty Start Date End Date Nanda Read MD PCP - General 05/08/09 05/20/18 documented as of this encounter
--- OUTSIDE RECORDS SUMMARY | 2024-09-18 16:07 | XMS_ITS | Encounter Summary ---
Author Organization [facility] Address [address] [place] [address] Care Team Providers Care Motion Picture Projectionist Name Role Phone Nanda Read MD Primary Care Provider Unavailable Encounter Details Date Type Department Care Team (Late st Contact Info) Description 12/11/2009 Abstract [facility] Bariatric Surgery - [address] [address] Nanda Read MD Social History Tobacco Use [...] Info) Description 02/05/2025 11:00 EDT Office Visit [facility] Pelvic Medicine and Reconstructive Surgery - Medical Office [address] [phone] Solange Garcia PA-C [address] [place] [address] Medical Office [facility], [address] [phone] documented as of this encounter Visit Diagnoses Not on filedocumented in this encounter Historical Medications * This list may reflect changes made after this encounter. ergocalciferol (DRISDOL; VITAMIN D2) 1,250 mcg (50,000 unit) capsule Take 1 Capsule by mouth once a week. Thioctic Acid (ALPHA LIPOIC ACID) 300 mg Cap Take by mouth 2 times daily. 01/28/2010 added in this encounter Care Teams Motion Picture Projectionist Relationship Specialty Start Date End Date Nanda Read MD PCP - General 05/08/09 05/20/18 documented as of this encounter
--- OUTSIDE RECORDS SUMMARY | 2024-09-18 16:07 | XMS_ITS | Encounter Summary ---
Author Organization [facility] Address [address] [place] [address] Care Team Providers Care Fish Hatchery Man Name Role Phone Nanda Read MD Primary Care Provider Unavailable Reason for Visit * Reason Comments Abnormal Pap Smear ASCUS pap in 12/2009 Vaginal Bleeding Pt reports she spots in between her menses. Bleeds 3 week out of the month. Encounter Details Date Type Department Care Team (Late st Contact Info) Description 04/05/2010 10:30 EDT Office Visit [facility] OBGYN Services - [address] [phone] Trevor Julian MD 111 [facility], Level [address] [place] [address] ASCUS on Pap smear (Primary [...] - 04/05/2010 1124 EDT Clive Ramos MD [address] [place] [address] Dear Otto: Just a note to keep [...] Sincerely, Trevor Julian MD Director, Division of Shear Operator Helper Oncology [facility] CC: NANDA READ MD documented in this encounter Plan of Treatment Upcoming Encounters Date Type Department Care Team (Late st Contact Info) Description 02/05/2025 11:00 EDT Office Visit [facility] Pelvic Medicine and Reconstructive Surgery [place] [address] Solange Garcia PA-C 792 [facility] Medical Office Building, [address] [place] [address] Scheduled Orders Name Type Priority Associated Diagnoses Orde r Schedule PAP TEST- ORDER ONLY Pathology Routine ASCUS on PAP Smear Ordered: 04/05/2010 documented as of this encounter Visit Diagnoses Diagnosis ASCUS on Pap smear- Primary Other nonspecific abnormal finding Irregular menstrual cycle documented in this encounter Care Teams Fish Hatchery Man Relationship Specialty Start Date End Date Nanda Read MD PCP - General 05/08/09 05/20/18 documented as of this encounter
--- OUTSIDE RECORDS SUMMARY | 2024-09-18 16:07 | XMS_ITS | Encounter Summary ---
Author Organization [facility] Address [address] [place] [address] Care Team Providers Care Lead Business Systems Analyst Name Role Phone Nanda Read MD Primary Care Provider Unavailable Reason for Visit * Reason Comments Obesity #2 Encounter Details Date Type Department Care Team (Late st Contact Info) Description 01/28/2010 9:00 EDT Office Visit [facility] Bariatric Surgery [facility] [address] [place] [address] Clara Wade S, OBIEE CONSULTANT 61 [facility] [address] [phone] Venous insufficiency; Morbid obesity ([facility]); Vitamin D deficiency Social History Tobacco Use [...] removed. I discussed this case with our python developer as well as a fellow bariatric surgeon. [...] bariatric surgeon at an additional institution, possibly [facility] or [place], for a second opinion as I want [...] - IDA Job ID: SM Doc ID: [id number] Ext Doc ID: [id number] cc: * Inpatient, Physician - 03/24/2010 1440 EDT * Clara Wade NP - 01/28/2010 1015 EDT NANDAMIKE READ [address] [place] [address] Dear Jacek : Thank you for referring your patient, Martha Benoit, for evaluation and consideration of laparoscopic [...] Goes as high as 220. Working with endo at [facility]. Respiratory ROS: denies sxs of DAMIAN Cardiovascular [...] 1 block. Martha met with our program crew lead for 30 minutes to review preoperative dietary recommendations.I did consult our crew lead following her visit with the patient and [...] rashes, no suspicious skin lesions noted Ms. 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 and complications of bariatric surgery as [...] Info) Description 02/05/2025 11:00 EDT Office Visit [facility] Pelvic Medicine and Reconstructive Surgery - Medical Office Building [address] [address] Solange Garcia PA-C [address] [place] [address] Medical Office [facility], [address] [phone] documented as of this encounter Visit Diagnoses Diagnosis Venous insufficiency Unspecified venous (peripheral) insufficiency Morbid obesity ([facility]) Morbid obesity Vitamin D deficiency Unspecified vitamin [...] may reflect changes made after this encounter. insulin lispro (HUMALOG) 100 unit/mL injectionIndicat ions:per patient insulin called 70/30 Inject into the skin 3 times daily. Sliding scale folic acid (FOLVITE) 1 mg tablet Take 1 mg by mouth daily. Reported on 03/13/2017 01/08/2024 pregabalin (LYRICA) 100 mg capsule Take 100 mg by mouth 2 times daily. 11/29/2010 08/30/2013 added in this encounter Care Teams Lead Business Systems Analyst Relationship Specialty Start Date End Date Nanda Read MD PCP - General 05/08/09 05/20/18 documented as of this encounter
--- OUTSIDE RECORDS SUMMARY | 2024-09-18 16:07 | XMS_ITS | Encounter Summary ---
Author Organization [facility] Address [address] [place] [address] Care Team Providers Care Manager Hospice Name Role Phone Nanda Read MD Primary Care Provider Unavailable Encounter Details Date Type Department Care Team (Late st Contact Info) Description 04/07/2010 Results Only [facility] ([facility]) [address] [place] [address] [address] [address] Social History Tobacco Use Types Packs/Day Years [...] and Reconstructive Surgery - Medical Office Building [facility] [address] [place] [address] Solange Garcia PA-C [address] [facility] Medical Office Building, [address] [place] [phone] documented as of this encounter Procedures Procedure Name Priority Date/Time Associated Diagnosis Comments CYTOPATHOLOGY Routine 04/07/2010 0:00 EDT documented in this encounter Results * CYTOPATHOLOGY (04/07/2010 0:00 EDT) Pathology Report: CYTOPATHOLOGY REPORT ? Reports generated via electronic interface contain original data; ? however they are lacking the format of the original report. ? Caution should be taken when reading/interpreti ng unformatted reports. ? Name: ? JO JONES ? Accession #: ? [id number] ? : ? 1965 (Age: 44) ??F ?Collect Date: ? 04/07/2010 ? Location: ? [facility] ? Receive Date: ? 04/08/2010 ? Provider: ? JOY HUTSON MD ? Copy to: ? CYTOLOGIC DIAGNOSIS: ? Cerebrospinal fluid, cytologic evaluation: ? 1. ?No malignant cells identified. ? 2. ? Peripheral blood contamination. ? Document reviewed and electronically signed by: ? Carlo Zurita Rell, MD ? Report Date: ??04/08/2010 12:44 ? [...] [facility] 04/07/2010 04/08/2010 8:3 4 EDT us Joy Hutson MD PATHOLOGY ORDERABLES Final Resu lt [facility] [address] [place] [address] documented in this encounter Visit Diagnoses Not on filedocumented in this encounter Care Teams Manager Hospice Relationship Specialty Start Date End Date Nanda Read MD PCP - General 05/08/09 05/20/18 documented as of this encounter
--- OUTSIDE RECORDS SUMMARY | 2024-09-18 16:07 | XMS_ITS | Encounter Summary ---
Author Organization [facility] Address [address] [place] [address] Care Team Providers Care Railcar Switchman Name Role Phone Nanda Read MD Primary [...] Info) Description 11/29/2010 9:15 EST Office Visit [facility] OBGYN Services - [address] [phone] Trevor Julian MD [address] [facility], [address] [place] [address] LGSIL on Pap smear (Primary Dx) Discharge [...] Refills Last Filled Start Date End Date metronidazole (METROGEL) 0.75 % vaginal gel Place 1 Applicator vaginally daily for 5 days. Please dispense 1 box of 5 applicators. Thank you. 1 Tube 0 11/29/2010 4 metronidazole (METROGEL) 0.75 % vaginal gel Place 1 Applicator vaginally 2 times daily for 7 days. 1 Tube 0 11/29/2010 1 documented in this encounter Discharge Disposition Disposition Code Departure Means Destination Auto Discharge documented in this encounter Progress Notes * Trevor Julian MD - 11/29/2010 1026 EST Clive Ramos MD [address] [place] [address] Dear Otto: Just a note to keep [...] Trevor Julian MD Director of Gynecologic Oncology [facility] CC: MD Nanda Vasquez MD documented in this encounter Plan of Treatment Upcoming Encounters Date Type Department Care Team (Late st Contact Info) Description 02/05/2025 11:00 EDT Office Visit [facility] Pelvic Medicine and Reconstructive Surgery - Medical Office Building [address] [address] Solange Garcia PA-C [address] [place] [address] Medical Office [facility], [address] [phone] Scheduled Orders Name Type Priority Associated Diagnoses [...] documented as of this encounter Care Teams Railcar Switchman Relationship Specialty Start Date End Date Nanda Read MD PCP - General 05/08/09 05/20/18 documented as of this encounter
--- OUTSIDE RECORDS SUMMARY | 2024-09-18 16:07 | XMS_ITS | Encounter Summary ---
[place] [address] Care Team Providers Care Fractionation Supervisor Name Role Phone MunozRuth jerome LARRY Primary Care Provider + Encounter Details Date Type Department Care Team (Latest Contact Info) Description 08/19/2024 Specialty [place] [address] [facility] Refill Coordination - 28 day recurrence (secukinumab) [...] as of this encounter Progress Notes * Paul Dickson [facility] - 08/19/2024 4:19 PM EDT Clinical Management Plan: Refill Specialty Pharmacy Consultation; Paul Dickson [facility] Comprehensive Medication Management (CMM) Ms. Martha Benoit [...] Known Allergies Medication Reconciliation Discrepancies (compared to [facility] med list) No Review Flowsheet 08/19/2024 4:21 PM Assessment What is the name of [...] changes to current drug regimen were made. Paul Dickson RPH 08/19/24 4:22 PM documented in this encounter Plan of Treatment Upcoming Encounters Date Type Department Care Team (Late st Contact Info) Description 02/19/2025 9:00 AM EDT TH Visit (TeleHealth) [place] [address] Wyatt Higgins MD [facility] [place] [address] documented as of this encounter Visit Diagnoses Not on filedocumented in this encounter Care Teams Fractionation Supervisor Relationship Specialty Start Date End Date Ruth Munoz APRN [address] [place] [address] PCP - General Family Medicine 02/05/19 documented as of this encounter
--- OUTSIDE RECORDS SUMMARY | 2024-09-18 16:07 | XMS_ITS | Encounter Summary ---
Author Organization [facility] Address [address] [place] [address] Care Team Providers Care Marketing Database Analyst Name Role Phone Nanda Read MD Primary Care Provider Unavailable Reason for Visit * Reason Onset Date Comments Results 05/10/2010 pt called reques ting results of endometrial bx done on 04/22/10 Encounter Details Date Type Department Care Team (Late st Contact Info) Description 05/10/2010 Telephone [facility] OBGYN Services - [facility] [address] [place], [place] [phone] Toshia Callaway RN Results (pt called requesting [...] Encounter - Toshia Callaway RN - 05/10/2010 3545 EDT Martha calls today requesting results of EMB done on 04/22/10. Discussed with Dr Julian, negative biopsy, ok to let pt know. Pt made aware of results. Will follow up in jun for regularly scheduled appt. documented in this encounter Plan of Treatment Upcoming Encounters Date Type Department Care Team (Late st Contact Info) Description 02/05/2025 11:00 EDT Office Visit [facility] Pelvic Medicine and Reconstructive Surgery - Medical Office Building [facility] [address] [place] [address] Solange Garcia PA-C [address] [place] [address] Medical Office [facility], [address] [phone] documented as of this encounter Visit Diagnoses Not on filedocumented in this encounter Care Teams Marketing Database Analyst Relationship Specialty Start Date End Date Nanda Read MD PCP - General 05/08/09 05/20/18 documented as of this encounter
--- OUTSIDE RECORDS SUMMARY | 2024-09-18 16:07 | XMS_ITS | Encounter Summary ---
Author Organization [facility] Address [address] [place] [address] Care Team Providers Care Occupational Medicine Specialist Name Role Phone Nanda Read MD Primary Care Provider Unavailable Encounter Details Date Type Department Care Team (Late st Contact Info) Description 06/02/2011 Results Only [facility] OBGYN Services - [address] [phone] Trevor Burnham MD [address] [facility], [address] [place] [phone] Social History Tobacco Use Types Packs/Day Years [...] Info) Description 02/05/2025 11:00 EDT Office Visit [facility] Pelvic Medicine and Reconstructive Surgery - Medical Office Building [facility] [address] [place] [address] Solange Garcia PA-C [address] [place] [address] Medical Office [facility], [address] [phone] documented as of this encounter Procedures Procedure Name Priority Date/Time Associated Diagnosis Comments PAP TEST- RESULT ONLY Routine 06/02/2011 0:00 EDT documented in this encounter Results * PAP TEST- RESULT ONLY (06/02/2011 0:00 EDT) Pathologist [facility] Pathology Report: CYTOPATHOLOGY REPORT ? Reports generated via electronic interface contain original data; ? however they are lacking the format of the original report. ? Caution should be taken when reading/interpreti ng unformatted reports. ? Name: ? JO JONES ? Accession #: ? [id number] ? : ? 1965 (Age: 45) ??F [...] Document reviewed and electronically signed by: ? GLADWYN LEIMAN MBBCh ? Report Date: ??06/13/2011 13:17 ? End of Report ? [facility] 06/02/2011 06/02/2011 us Trevor Burnham MD PATHOLOGY ORDERABLES Final Resul t [facility] [address] [place] [address] documented in this encounter Visit Diagnoses Not on filedocumented in this encounter Care Teams Occupational Medicine Specialist Relationship Specialty Start Date End Date Nanda Read MD PCP - General 05/08/09 05/20/18 documented as of this encounter
--- OUTSIDE RECORDS SUMMARY | 2024-09-18 16:07 | XMS_ITS | Clinical Summary ---
Author Organization [facility] Address [address] [facility] [place] [address] Care Team Providers Care Lip Cutter And Scorer Name Role Phone Ruth Munoz APRN Primary [...] 2020 Active UNABLE TO FIND Med Name: Snowflake vitamins take one tablet by mouth twice [...] FreeStyle Lite Meter Kit [address] [facility].(Non-Drug; Combo Route) route daily. 1 each 11/01/2022 [...] A DAY 60 mL 3 01/15/2024 Active ergocalciferoL, vitamin D2, (vitamin D2) 50,000 unit capsule Take 1 capsule by mouth once a week. 12 capsule 3 03/11/2024 Active secukinumab (Cosentyx Pen) 150 mg/mL Pen Injector Inject 300 mg subcutaneously every 28 days. 2 mL 11 03/29/2024 Active levothyroxine (Synthroid) 25 mcg tablet TAKE ONE TABLET BY MOUTH EVERY DAY 90 tablet 2 05/20/2024 Active Active Problems Problem Noted Date Diagnosed [...] Julio Cesar Wright suggested lumbar puncture in [place] -if high protein, may need IVIG therapy or try two days of high dose steroid therapy Preoperative Class III obesi ty BMI 43, S/P gastric bypass 01/04/16 10/23/2009 Overview (01/25/2016): Bariatric Surgery Program 1. Attended Introduction to the [facility] Bariatric Surgery Program seminar, a comprehensive two hour meeting that provides a program overview, education on bariatric surgeries offered at [facility], risks and benefits, as well as patient expectations and follow up: 08/05/14. [facility] BSP Educational seminars viewed: 3. Grades on post-testin-100%. The BSP Educational Handbook is provided at preoperative visit #1. 2. Pre-operative programmatic evaluations required: PCP evaluation and letter of support to proceed with surgery, BSP labwork (can be done on day of visit #1) and psychological evaluation- minimum of 2 visits. 3. Bariatric Surgery Program evaluations with RD and FURNITURE BUILDER: 11/03/15 4. Weight history: 198 pounds on 08/25/04, 207 pounds on 03/20/09, 249 pounds on 07/01/14, 253 pounds on 02/20/15 5. Gallbladder status: 6. Insurer specific requirements: [place] medicaid- 3 months of supervised counseling 7. BSP Team meeting discussion: no Post surgery course: 1. Admitted to [facility] on 01/24/16 with nausea and vomiting, failure to progress diet. Transfer to [facility] on 01/25/16 Vitamin D deficiency 04/22/2009 Overview [...] ureteral stone extraction Jul - [facility] [place] Chronic foot pain-s/p heel spur surgeries Resolved [...] Encounters Date Type Department Care Team Description 09/06/2024 Specialty [place] [phone] Sukhdev Ga, [facility] Refill Coordination - 28 day recurrence (secukinumab) for Dermatology 08/19/2024 Specialty [place] [phone] Paul Dickson, [facility] Refill Coordination - 28 day recurrence (secukinumab) for Dermatology 07/29/2024 Specialty [place] [phone] Gertrudis Siddiqi, DIRECTOR INTELLIGENCE ANALYSIS PROGRAMS 07/29/2024 Specialty [place] [phone] Sukhdev Ga, [facility] Refill Coordination - 28 day recurrence (secukinumab) for Dermatology 07/17/2024 Telephone [place] [address] Judith Reinoso MD 07/01/2024 Specialty [place] [address] Sravanthi Cardoza [facility] Refill Coordination - 28 day recurrence (secukinumab) for Dermatology from Last 3 Months Family History Medical [...] AM EDT TH Visit (TeleHealth) [place] [phone] Wyatt Higgins MD [facility] [place] [address] Health Maintenance Due Date Last Done Comments CT Colonography 1965 FIT DNA 1965 FIT 1965 Sigmoidoscopy 1965 Pneumococcal Vaccine: At-Ris k 5-64yrs (1 of 2 - PCV) 1969 DM Opthalmology Exam 1973 HIV screen 1981 Hepatitis C Screening 1981 Tetanus/Diphtheria/Pertussis Vaccines (1 - Tdap) 1982 HPV test 1993 PAP Smear 1993 Breast Cancer Share Decision Needed 2003 Breast Cancer screening 2003 Zoster vaccine (1 of 2) 2013 DM Creatinine yearly 06/07/2023 06/07/2022, 05/31/2021, 02/05/2019, Additional history exists DM Urine Microalbumin yearly 06/07/2023, 05/31/2021, 02/05/2019, Additional history exists DM Hemoglobin A1c 6 month 08/23/20232022, 06/07/2022, 05/31/2021, Additional history exists RSV Vaccine (1 - Risk 60-74 years 1-dose series) 2023 Covid-19 Vaccine (1 - 2023-2 5 season) 2024 Influenza (Flu) vaccine (1 o f 1 - Influenza standard series) 06/23/2024 Lipid Screening 06/07/2027 06/07/2022, 08/0 06/2021, 02/05/2019, Additional history exists Colonoscopy 08/05/2031 08/05/2021, 08/05/2021 Colorectal Cancer Screening 08/05/2031 Sigmoidoscopy (10 year) with FIT yearly 08/05/2031 08/05/2021, 08/05/2021 Procedures Procedure Name Priority Date/Time Associated Diagnosis Comments HEMOGLOBIN A1C Routine 02/20/2023 1:02 PM EDT Type 2 diabetes, controlled, with neuropathy History of gastric bypass Peripheral autonomic neuropathy due to diabetes mellitus LIPID PANEL (REFLEX DIRECT LDL) Routine 06/07/2022 11:47 AM EDT Hypothyroidism, acquired Type 2 diabetes, controlled, with neuropathy History of gastric bypass Vitamin D deficiency COMPREHENSIVE METABOLIC PANEL Routine 06/07/2022 11:47 AM EDT Hypothyroidism, acquired [...] Recently Relevant to Health Maintenance Results * (ABNORMAL) Hemoglobin A1c (02/20/2023 1:02 PM EDT) Hemoglobin A1c 6.4(H) 4.3 - 5.6 % [facility] Comment: Reference Range: 4.3 - [...] Mellitus, Diabetes Care 2013; 36: Suppl. 1, O97-58 Estimated Average Glucose 137 mg/dL [facility] Comment: eAG equivalents for HbA1c [...] into estimated average glucose values. ??Diabetes Care 2008:31(8):3193-0688. Blood 02/20/2023 1:02 PM EDT 02/20/2023 1:10 PM EDT Narrative Resulting Agency Comment Spec In Lab Judith Reinoso MD CHEMISTRY ORDERAB LES [facility] [place] [address] * Lipid Panel (Reflex Direct LDL) (06/07/2022 11:47 AM EDT) Cholesterol, Total 207 mg/dL [facility] Comment: Lower Risk: <200 mg/dL Average Risk: 200-239 mg/dL Higher Risk: >uk=196 mg/dL Triglyceride 163 mg/dL [facility] Comment: Average Risk/Lower Risk: <150 mg/dL Borderline High Risk: 150-199 mg/dL High Risk: 200-499 mg/dL Very High Risk: >zy=514 mg/dL HDL Cholesterol 50 mg/dL [facility] Comment: Males: ?? Higher Risk: <40 mg/dL Females: ?? Higher Risk: <50 mg/dL LDL Cholesterol 124 mg/dL [facility] Comment: Lowest Risk: <100 mg/dL Lower Risk: 100-129 mg/dL Borderline High Risk: 130-159 mg/dL High Risk: 160-189 mg/dL Very High Risk: >iu=054 mg/dL Cholesterol/HDL Ratio 4.1 ratio [facility] Lipid Interpretation See Note [facility] Comment: Lipid management should be guided by a patient? s ASCVD risk, goals and preferences. ACC/AHA Guidelines recommend high intensity statin if clinical ASCVD or LDL greater than or equal to 190 mg/dL. http://[employer].com/BPV-LKZ-Yiqhxklgn Adults aged 40-75 with LDL 70-189 mg/dL should have their 10 year ASCVD risk estimated with the ACC/AHA ASCVD risk doctor assistant http://tools.acc.org/XVGSY-Zbdw-Jabfpisbh/ Statin should be discussed if risk greater [...] Lab Judith Reinoso MD CHEMISTRY ORDERAB LES [facility] [place] [address] * (ABNORMAL) Comprehensive metabolic panel (non-fasting) (06/07/2022 11:47 AM EDT) Glucose 74 65 - 199 mg/dL [facility] Comment:Diabetes: >=200 mg/d L plus symptoms Blood Urea Nitrogen 10 8 - 18 mg/dL [facility] Creatinine 0.40(L) 0.70 - 1.20 mg/dL [facility] Sodium 144 135 - 145 mmol/L [facility] Potassium 3.8 3.5 - 5.0 mmol/L [facility] Comment: Please note: ??Patients with WBC >100,000 may have falsely elevated Potassium levels. ??For accurate Potassium quantification in these patients send serum separator tube (gold top) for subsequent determinations. ??Contact the Clinical Chemistry Laboratory if there are any questions. Chloride 106 98 - 107 mmol/L [facility] Carbon Dioxide 26 22 - 31 mmol/L [facility] Anion Gap 12 5 - 15 mmol/L [facility] Calcium 9.4 8.5 - 10.5 mg/dL [facility] Protein, Total 7.6 6.1 - 8.0 g/dL [facility] Albumin 4.6 3.2 - 5.2 g/dL [facility] Aspartate Aminotransferase 19 0 - 30 unit/L [facility] Alanine Aminotransferase 17 0 - 30 unit/L [facility] Alkaline Phosphatase 94 35 - 105 unit/L [facility] Bilirubin, Total 0.3 0.2 - 1.3 mg/dL [facility] Est Glomerular Filtration Rate 115 >=60 mL/min/1. 73 m?? [facility] Comment: This patient's estimated GFR [...] Lab Judith Reinoso MD CHEMISTRY ORDERAB LES [facility] [place] [address] * U Albumin/Cre Ratio (06/07/2022 11:32 AM EDT) Albumin / Creatinin Ratio, Urine 11 0 - 29 mcg/mg Cr [facility] Comment: Reference Ranges: <30 mcg/mg: [...] [employer] Supplements (2012) 2, 357? 362 Albumin, Urine 5.2 mg/L [facility] Creatinine, Urine 48 mg/dL [facility] Urine 06/07/2022 11:3 2 AM EDT 06/07/2022 11:43 AM EDT Narrative Resulting Agency Comment Spec In Lab Judith Reinoso MD URINE ORDERABLES [facility] [place] [address] * COLONOSCOPY (08/05/2021 11:09 AM EDT) COLONOSCOPY [facility] Endoscopy Procedure Date: 08/05/2021 11:09 AM ? Patient Name: Martha Benoit ? Date of : 1965 ? Age: 55 ? Order #: [id number] ? Instrument Name: [id number] ? Procedure: ? Colonoscopy Indications: ? Screening [...] preparation was evaluated using ? the BBPS ([place] Bowel Preparation ? Scale) with scores of: [...] 08/05/2021 11:0 9 AM EDT Ruth Munoz SUPERVISOR [employer] GENERAL SURGICAL ORDERABLES Performing Organization Address City/State/[facility] Co de Phone Number PROVATION from Last 3 Months or Most Recently Relevant to Health Maintenance Advance Directives Documents on File Type Date Recorded Patient Machine Woodworking Sander Expl anation Advance Directives and Rodriguez ruiz Will 11/24/2015 5:11 PM FINANCIAL DPOA * [...] capacity to make decision: Yes Care Teams Lip Cutter And Scorer Relationship Specialty Start Date End Date Ruth Munoz APRN [address] [place] [address] PCP - General Family Medicine 02/05/19
--- OUTSIDE RECORDS SUMMARY | 2024-09-18 16:07 | XMS_ITS | Encounter Summary ---
Author Organization [facility] Address [address] [place] [address] Care Team Providers Care Unit Secy Name Role Phone Nanda Read MD Primary Care Provider Unavailable Reason for Visit * Reason Comments Follow-up six month visit, hx persistent LSIL Encounter Details Date Type Department Care Team (Late st Contact Info) Description 06/02/2011 13:00 EDT Office Visit [facility] OBGYN Services - [address] [phone] Trevor Julian MD [address] [facility], [address] [place] [address] LGSIL on Pap smear (Primary [...] Notes * Trevor Julian MD - 06/02/2011 6177 EDT Just a note to keep you [...] smear was obtained today. I explained to Herishannon her followup Pap smears could either be [...] Trevor Julian MD Director of Gynecologic Oncology [facility] documented in this encounter Plan of Treatment Upcoming Encounters Date Type Department Care Team (Late st Contact Info) Description 02/05/2025 11:00 EDT Office Visit [facility] Pelvic Medicine and Reconstructive Surgery - Medical Office Building [facility] [address] [place] [address] Solange Gacria PA-C 2 [facility] Medical Office [facility], [address] [phone] Scheduled Orders Name Type Priority Associated Diagnoses Orde r Schedule PAP TEST- ORDER ONLY Pathology Routine LGSIL on Pap Smear 05/26/2011 documented as of this encounter Visit Diagnoses Diagnosis 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
--- OUTSIDE RECORDS SUMMARY | 2024-09-18 16:07 | XMS_ITS | Encounter Summary ---
Author Organization [facility] Address [address] [place] [address] Care Team Providers Care Crisis Intervention Counselor Name Role Phone Nanda Read MD Primary Care Provider Unavailable Encounter Details Date Type Department Care Team (Late st Contact Info) Description 04/05/2010 Results Only [facility] OBGYN Services - [address] [address] Trevor Burnham MD 111 [facility], Level [address] [place] [phone] Social History Tobacco Use Types Packs/Day Years [...] Info) Description 02/05/2025 11:00 EDT Office Visit [facility] Pelvic Medicine and Reconstructive Surgery - Medical Office Building [facility] [address] [place] [address] Solange Garcia PA-C 7[address] [facility] Medical Office [facility], [address] [place] [phone] documented as of this encounter Procedures Procedure Name Priority Date/Time Associated Diagnosis Comments CYTOPATHOLOGY Routine 04/05/2010 0:00 EDT documented in this encounter Results * CYTOPATHOLOGY (04/05/2010 0:00 EDT) Pathology Report: CYTOPATHOLOGY REPORT ? Reports generated via electronic interface contain original data; ? however they are lacking the format of the original report. ? Caution should be taken when reading/interpreti ng unformatted reports. ? Name: ? JO JONES ? Accession #: ? [id number] ? : ? 1965 (Age: 44) ??F [...] reviewed and electronically signed by: ? Naveen Cohen CT(ASCP) ? Report Date: ??04/07/2010 14:18 ? End of Report ? [facility] 04/05/2010 04/06/2010 us Trevor Burnham MD PATHOLOGY ORDERABLES Final Resul t [facility] [address] [place] [address] documented in this encounter Visit Diagnoses Not on filedocumented in this encounter Care Teams Crisis Intervention Counselor Relationship Specialty Start Date End Date Nanda Read MD PCP - General 05/08/09 05/20/18 documented as of this encounter
--- OUTSIDE RECORDS SUMMARY | 2024-09-18 16:07 | XMS_ITS | Encounter Summary ---
Author Organization [facility] Address [address] [place] [address] Care Team Providers Care Director Of Residence Life Name Role Phone Nanda Read MD Primary Care Provider Unavailable Encounter Details Date Type Department Care Team (Latest Contact Info) Description 12/01/2009 7:58 EST - 12/01/2009 23:59 EST Hospital Encounter [facility] [address] [place] [address] Timothy Alvarado MD [address] [place] [phone] Discharge Disposition: Home or Self Care [...] Self Senior Living documented in this encounter Procedure Notes * [...] and Reconstructive Surgery - Medical Office Building [address] [address] Solange Garcia PA-C 792 [facility] Medical [facility], [address] [phone] documented as of this encounter [...] Physician Inpatient MD LAB INFO SERVICE AND SUPP ORT & PHONE RESULT Final Result * ORDERS - SCANNED (12/02/2009 13:37 EST) 12/02/2009 13:3 7 EST Narrative Procedure Note Inpatient, Physician - 12/02/2009 13:37 EST Physician Inpatient MD ADMISSION ORDERABLES Celestina l Result * (ABNORMAL) GLUCOSE, GLUCOMETER (12/01/2009 8:51 EST) Glucose, Fingerstick 187(H) 70 - 100 mg/dl [facility] Public Relations Manager ID [id number] Test Performed by Nursing Services [facility] 12/01/2009 8:51 EST 12/02/2009 6:25 EST us Provider Unknown CHEMISTRY & BLOOD GAS ORDERA BLES Final Result Performing Organization Address City/State/[facility] Co de Phone Number [facility] [address] [place] [address] documented in this encounter Visit Diagnoses Not on filedocumented in this encounter Care Teams Director Of Residence Life Relationship Specialty Start Date End Date Nanda Read MD PCP - General 05/08/09 05/20/18 documented as of this encounter
--- OUTSIDE RECORDS SUMMARY | 2024-09-18 16:07 | XMS_ITS | Encounter Summary ---
Author Organization [facility] Address [address] [place] [address] Care Team Providers Care Teenage Babysitter Name Role Phone Nanda Read MD Primary Care Provider Unavailable Encounter Details Date Type Department Care Team (Late st Contact Info) Description 12/03/2009 Abstract [facility] OBGYN Services - [address] [phone] Nanda Read MD Social History Tobacco Use [...] Reconstructive Surgery - Medical Office Building [address] [phone] Solange Garcia PA-C [address] [place] [address] Medical Office [facility], [address] [phone] documented as of this encounter Visit Diagnoses Not on filedocumented in this encounter Care Teams Teenage Babysitter Relationship Specialty Start Date End Date Nanda Read MD PCP - General 7/17/09 7/29/18 documented as of this encounter
--- OUTSIDE RECORDS SUMMARY | 2024-09-18 16:07 | XMS_ITS | Encounter Summary ---
Author Organization [facility] Address [address] [place] [address] Care Team Providers Care Senior Technical Business Analyst Name Role Phone Nanda Read MD Primary Care Provider Unavailable Reason for Visit * Reason Onset Date Comments Vaginal Bleeding 04/16/2010 Encounter Details Date Type Department Care Team (Late st Contact Info) Description 04/16/2010 Telephone [facility] OBGYN Services - [facility] [address] [place], [place] [phone] Martha Pham RN Vaginal Bleeding Social History [...] and Reconstructive Surgery - Medical Office Building [address] [phone] Solange Garcia PA-C [address] [place] [address] Medical Office [facility], [address] [phone] documented as of this encounter Visit Diagnoses Not on filedocumented in this encounter Care Teams Senior Technical Business Analyst Relationship Specialty Start Date End Date Nanda Read MD PCP - General 05/08/09 05/20/18 documented as of this encounter
--- OUTSIDE RECORDS SUMMARY | 2024-09-18 16:07 | XMS_ITS | Encounter Summary ---
Author Organization [facility] Address [address] [place] [address] Care Team Providers Care Long Chain Quiller Tender Name Role Phone Nanda Read MD Primary Care Provider Unavailable Reason for Visit * Reason Comments Follow-up abnormal vaginal ble eding, here for endometrial biopsy Encounter Details Date Type Department Care Team (Late st Contact Info) Description 04/22/2010 15:00 EDT Office Visit [facility] OBGYN Services - [address] [phone] Trevor Julian MD 111 [facility], Level 4 [place] [address] Dysfunctional uterine bleeding (Primary Dx) [...] - 04/22/2010 1640 EDT Clive Ramos MD [address] [place] [address] Dear Otto: Just a note to keep [...] Sincerely, Trevor Julian MD Director, Division of Front Tender Oncology [facility] CC: NANDA READ MD documented in this encounter Plan of Treatment Upcoming Encounters Date Type Department Care Team (Late st Contact Info) Description 02/05/2025 11:00 EDT Office Visit [facility] Pelvic Medicine and Reconstructive Surgery - Medical Office Building [address] [address] Solange Garcia PA-C [address] [place] [address] Medical Office [facility], [address] [phone] Scheduled Orders Name Type Priority Associated Diagnoses Orde r Schedule SURGICAL PATHOLOGY- ORDER ONLY Pathology Routine Dysfunctional Uterine Bleeding Ordered: 04/22/2010 documented as of this encounter Visit Diagnoses Diagnosis Dysfunctional uterine bleeding- Primary Other disorder of menstruation and other abnormal bleeding from female genital tract documented in this encounter Care Teams Long Chain Quiller Tender Relationship Specialty Start Date End Date Nanda Read MD PCP - General 05/08/09 05/20/18 documented as of this encounter
--- OUTSIDE RECORDS SUMMARY | 2024-09-18 16:07 | XMS_ITS | Encounter Summary ---
Author Organization [facility] Address [address] [place] [address] Care Team Providers Care Medical Administrator Name Role Phone Nanda Read MD Primary Care Provider Unavailable Encounter Details Date Type Department Care Team (Late st Contact Info) Description 11/29/2010 Results Only [facility] OBGYN Services - [address] [phone] Trevor Burnham MD 111 [facility], Level [address] [place] [phone] Social History Tobacco Use Types Packs/Day Years [...] Office Building [facility] [address] [place] [address] Sol[place] Garcia PA-C [address] [place] [address] [facility], [address] [phone] documented as of this encounter Procedures Procedure [...] ? JO JONES ? Accession #: ? [id number] ? : ? 1965 (Age: 45) ??F [...] Report ? [facility] 11/29/2010 11/29/2010 us Trevor Burnham MD PATHOLOGY ORDERABLES Final Resul t [facility] [address] [place] [address] documented in this encounter Visit Diagnoses Not on filedocumented in this encounter Care Teams Medical Administrator Relationship Specialty Start Date End Date Nanda Read MD PCP - General 05/08/09 05/20/18 documented as of this encounter
--- OUTSIDE RECORDS SUMMARY | 2024-09-18 16:08 | XMS_ITS | Encounter Summary ---
Author Organization [facility] [place] [address] Care Team Providers Care Propulsion Machinery Service Engineer Name Role Phone [place] Munoz Lilibeth JUAREZ Primary Care Provider + Encounter Details Date Type Department Care Team (Late st Contact Info) Description 01/15/2024 Orders [place] [phone] Madelin Caldwell RN Social History Tobacco Use [...] TH Visit (TeleHealth) [place] [phone] Wyatt Higgins MD [facility] DR NEUROLOGY DEPT [place], [place] [phone] documented as of this encounter Visit Diagnoses Not on filedocumented in this encounter Care Teams Propulsion Machinery Service Engineer Relationship Specialty Start Date End Date [place] Munoz, LARRY [address] [place] [address] PCP - General Family Medicine 02/05/19 documented as of this encounter
--- OUTSIDE RECORDS SUMMARY | 2024-09-18 16:08 | XMS_ITS | Encounter Summary ---
Author Organization [facility] [place] [address] Care Team Providers Care Deputy Building Guard Name Role Phone MunozRuth jerome Lilibeth JUAREZ Primary Care Provider + Reason for Visit * Reason Comments Medication Refill Encounter Details Date Type Department Care Team (Late st Contact Info) Description 04/30/2023 [place] [phone] Judith Reinoso MD [facility] [place] [place] [address] Social History Tobacco Use Types Packs/Day Years [...] AM EDT TH Visit (TeleHealth) [place] [phone] [facility] [place] [address] documented as of this encounter Visit Diagnoses Not on filedocumented in this encounter Care Teams Deputy Building Guard Relationship Specialty Start Date End Date [place] Munoz APRN [address] [place] [address] PCP - General Family Medicine 02/05/19 documented as of this encounter
--- OUTSIDE RECORDS SUMMARY | 2024-09-18 16:08 | XMS_ITS | Encounter Summary ---
[place] [address] Care Team Providers Care Paperhanger Supervisor Name Role Phone [place] Munoz LARRY Primary Care Provider + Encounter Details Date Type Department Care Team (Latest Contact Info) Description 06/03/2024 Specialty [place] [phone] Sravanthi Cardoza RPH Refill Coordination - 28 [...] Progress Notes * Sravanthi Cardoza RPH - 06/03/2024 4:12 PM EDT Clinical Management Plan: Refill Specialty [...] Known Allergies Medication Reconciliation Discrepancies (compared to [facility] med list) No Review Flowsheet 06/03/2024 4:13 PM Assessment What is the name of [...] to you to answer any questions? No What date will you need this fill by? 06/08/2024 Adherence: Any missed doses? No Patient understands no changes to current drug regimen were made. Sravanthi Cardoza RPH 06/03/24 4:14 PM documented in this encounter Plan of Treatment Upcoming Encounters Date Type Department Care Team (Late st Contact Info) Description 02/19/2025 9:00 AM EDT TH Visit (TeleHealth) [place] [address] Wyatt Higgins MD [facility] [place] [address] documented as of this encounter Visit Diagnoses Not on filedocumented in this encounter Care Teams Paperhanger Supervisor Relationship Specialty Start Date End Date [place] Munoz APRN [address] [place] [address] PCP - General Family Medicine 02/05/19 documented as of this encounter
--- OUTSIDE RECORDS SUMMARY | 2024-09-18 16:08 | XMS_ITS | Encounter Summary ---
Author Organization [facility] [place] [address] Care Team Providers Care Director Check Name Role Phone MunozRuth jerome Lilibeth JUAREZ Primary Care Provider + Reason for Visit * Reason Comments Medication Refill Encounter Details Date Type Department Care Team (Late st Contact Info) Description 02/11/2024 Refill [place] [phone] Judith Reinoso MD [facility] [place] [address] Social History Tobacco Use Types Packs/Day Years [...] AM EDT TH Visit (TeleHealth) [place] [phone] Wyatt Higgins MD [facility] [place] [address] documented as of this encounter Visit Diagnoses Not on filedocumented in this encounter Care Teams Director Check Relationship Specialty Start Date End Date [place] Munoz APRN [address] [place] [address] PCP - General Family Medicine 02/05/19 documented as of this encounter
--- OUTSIDE RECORDS SUMMARY | 2024-09-18 16:08 | XMS_ITS | Encounter Summary ---
Author Organization [facility] [place] [address] Care Team Providers Care Pediatric Clinical Nurse Specialist Name Role Phone [place] Munoz APRN [...] AM EDT TH Visit (TeleHealth) [place] [address] [facility] [place] [address] documented as of this encounter Visit Diagnoses Not on filedocumented in this encounter Care Teams Pediatric Clinical Nurse Specialist Relationship Specialty Start Date End Date [place] Munoz APRN [address] [place] [address] PCP - General Family Medicine 02/05/19 documented as of this encounter
--- OUTSIDE RECORDS SUMMARY | 2024-09-18 16:08 | XMS_ITS | Encounter Summary ---
Author Organization [facility] [place] [address] Care Team Providers Care Motor Vehicle Escort Driver Name Role Phone MunozRuth jerome Lilibeth JUAREZ Primary Care Provider + Reason for Visit * Reason Comments Medication Refill Encounter Details Date Type Department Care Team (Late st Contact Info) Description 03/10/2024 Refill [place] [phone] [place] Reinoso MD [facility] [place] [address] Social History Tobacco Use Types Packs/Day Years [...] AM EDT TH Visit (TeleHealth) [place] [phone] Wyatt Higgins MD [facility] [place] [address] documented as of this encounter Visit Diagnoses Not on filedocumented in this encounter Care Teams Motor Vehicle Escort Driver Relationship Specialty Start Date End Date [place] Munoz APRN [address] [place] [address] PCP - General Family Medicine 02/05/19 documented as of this encounter
--- OUTSIDE RECORDS SUMMARY | 2024-09-18 16:08 | XMS_ITS | Encounter Summary ---
Author Organization [facility] [place] [address] Care Team Providers Care Rn Pediatric Icu Name Role Phone MunozRuth jerome Lilibeth JUAREZ Primary Care Provider + Reason for Visit * Reason Comments Medication Refill Encounter Details Date Type Department Care Team (Late st Contact Info) Description 05/19/2024 Ref[place] [phone] [place] Reinoso MD [facility] [place] [address] Social History Tobacco Use Types Packs/Day Years [...] AM EDT TH Visit (TeleHealth) [place] [phone] Wyatt Higgins MD [facility] [place] [address] documented as of this encounter Visit Diagnoses Not on filedocumented in this encounter Care Teams Rn Pediatric Icu Relationship Specialty Start Date End Date [place] Munoz APRN [address] [place] [address] PCP - General Family Medicine 02/05/19 documented as of this encounter
--- OUTSIDE RECORDS SUMMARY | 2024-09-18 16:08 | XMS_ITS | Encounter Summary ---
Author [facility] [place] [address] Care Team Providers Care Relief Master Name Role Phone MunozRuth jerome Lilibeth JUAREZ Primary Care Provider + Encounter Details Date Type Department Care Team (Latest Contact Info) Description 04/11/2024 8:30 AM EDT TH Visit (TeleHealth) [place] [address] Wyatt Higgins MD [facility] [place] [address] Hereditary sensorimotor neuropathy; Type 2 diabetes mellitus with diabetic neuropathy, unspecified whether supervisor intermediates insulin use; Peripheral autonomic neuropathy due to [...] left earpain which was worked up at [facility]. No diagnosis I was unable to find any information on care everywhere. In October of this year she started to have decreased urine flow and she went to see a urologistat [facility]. Harder time urinating and defecating. [...] EDT TH Visit (TeleHealth) [place] [address] Wyatt Higgins MD [facility] [place] [address] documented as of this encounter Visit Diagnoses Diagnosis Hereditary sensorimotor neuropathy Type 2 diabetes mellitus with diabetic neuropathy, unspecified whether supervisor intermediates insulin use Peripheral autonomic neuropathy due to diabetes mellitus Type II or unspecified type diabetes mellitus with neurological manifestations, not stated as uncontrolled documented in this encounter Care Teams Relief Master Relationship Specialty Start Date End Date [place] Munoz APRN [address] [place] [address] PCP - General Family Medicine 02/05/19 documented as of this encounter
--- OUTSIDE RECORDS SUMMARY | 2024-09-18 16:08 | XMS_ITS | Encounter Summary ---
[place] [address] Care Team Providers Care Pharmacy Technician Inpatient Name Role Phone [place] Munoz LARRY Primary Care Provider + Reason for Visit * Reason Comments Specialty Refill Management Encounter Details Date Type Department Care Team (Late st Contact Info) Description 11/16/2023 Specialty [place] [address] Sravanthi Cardoza RPH Social History Tobacco Use [...] Known Allergies Medication Reconciliation Discrepancies (compared to [facility] med list) No Specialty Pharmacy Refill [...] AM EDT TH Visit (TeleHealth) [place] [address] Wyatt Higgins MD [facility] [place] [address] documented as of this encounter Visit Diagnoses Not on filedocumented in this encounter Care Teams Pharmacy Technician Inpatient Relationship Specialty Start Date End Date [place] Munoz APRN [address] [place] [address] PCP - General Family Medicine 02/05/19 documented as of this encounter
--- OUTSIDE RECORDS SUMMARY | 2024-09-18 16:08 | XMS_ITS | Encounter Summary ---
[place] [address] Care Team Providers Care Glass Crusher Name Role Phone [place] Munoz LARRY Primary Care Provider + Encounter Details Date Type Department Care Team (Latest Contact Info) Description 04/15/2024 Specialty [place] [address] Sukhdev Ga RPH Refill Coordination - 28 [...] Known Allergies Medication Reconciliation Discrepancies (compared to [facility] med list) No Review Flowsheet 04/15/2024 2:32 [...] AM EDT TH Visit (TeleHealth) [place] [address] Wytat Higgins MD [facility] [place] [address] documented as of this encounter Visit Diagnoses Not on filedocumented in this encounter Care Teams Glass Crusher Relationship Specialty Start Date End Date [place] Munoz APRN [address] [place] [address] PCP - General Family Medicine 02/05/19 documented as of this encounter
--- OUTSIDE RECORDS SUMMARY | 2024-09-18 16:08 | XMS_ITS | Encounter Summary ---
[place] [address] Care Team Providers Care Manager Battery Name Role Phone [place] Munoz LARRY Primary Care Provider + Reason for Visit * Reason Comments Medication Management Encounter Details Date Type Department Care Team (Late st Contact Info) Description 09/26/2023 Specialty [place] [address] Sukhdev Ga RPH Social History Tobacco Use [...] Known Allergies Medication Reconciliation Discrepancies (compared to [facility] med list) No Specialty Pharmacy Refill [...] AM EDT TH Visit (TeleHealth) [place] [address] Wyatt Higgins MD [facility] [place] [place] [address] documented as of this encounter Visit Diagnoses Not on filedocumented in this encounter Care Teams Manager Battery Relationship Specialty Start Date End Date [place] Munoz APRN [address] [place] [address] PCP - General Family Medicine 02/05/19 documented as of this encounter
--- OUTSIDE RECORDS SUMMARY | 2024-09-18 16:08 | XMS_ITS | Encounter Summary ---
[place] [address] Care Team Providers Care Commercial Credit Lead Name Role Phone [place] Munoz LARRY Primary Care Provider + Reason for Visit * Reason Comments Medication Management Encounter Details Date Type Department Care Team (Late st Contact Info) Description 02/07/2023 Specialty [place] [address] Nura Lozano [facility] Social History Tobacco Use Types [...] this encounter Progress Notes * Nura Lozano [facility] - 02/07/2023 11:43 AM EDT Clinical Management Plan: Refill Specialty Pharmacy Consultation; Nura Lozano [facility] Comprehensive Medication Management (CMM) Martha [...] Known Allergies Medication Reconciliation Discrepancies (compared to [facility] med list) No Specialty Pharmacy Refill [...] AM EDT TH Visit (TeleHealth) [place] [address] Wyatt Higgins MD [facility] [place] [place] [address] documented as of this encounter Visit Diagnoses Not on filedocumented in this encounter Care Teams Commercial Credit Lead Relationship Specialty Start Date End Date [place] Munoz APRN [address] [place] [address] PCP - General Family Medicine 02/05/19 documented as of this encounter
--- OUTSIDE RECORDS SUMMARY | 2024-09-18 16:08 | XMS_ITS | Encounter Summary ---
[place] [address] Care Team Providers Care Machine Bender Name Role Phone [place] Munoz LARRY Primary Care Provider + Encounter Details Date Type Department Care Team (Latest Contact Info) Description 05/07/2024 Specialty [place] [address] Rafal Frye RPH Refill Coordination - 28 day recurrence [...] Known Allergies Medication Reconciliation Discrepancies (compared to [facility] med list) No Review Flowsheet 05/07/2024 3:05 [...] AM EDT TH Visit (TeleHealth) [place] [address] Wyatt Higgins MD [facility] [place] [address] documented as of this encounter Visit Diagnoses Not on filedocumented in this encounter Care Teams Machine Bender Relationship Specialty Start Date End Date [place] Munoz APRN [address] [place] [address] PCP - General Family Medicine 02/05/19 documented as of this encounter
--- OUTSIDE RECORDS SUMMARY | 2024-09-18 16:08 | XMS_ITS | Encounter Summary ---
[place] [address] Care Team Providers Care Respiratory Therapist Name Role Phone Ruth Munoz LARRY Primary Care Provider + Encounter Details Date Type Department Care Team (Late st Contact Info) Description 02/06/2024 Specialty [place] [address] Gertrudis Siddiqi, [facility] Social History Tobacco Use Types Packs/Day [...] Known Allergies Medication Reconciliation Discrepancies (compared to [facility] med list) No Specialty Pharmacy Refill [...] AM EDT TH Visit (TeleHealth) [place] [address] Wyatt Higgins MD [facility] [place] [address] documented as of this encounter Visit Diagnoses Diagnosis Psoriasis Other psoriasis documented in this encounter Care Teams Respiratory Therapist Relationship Specialty Start Date End Date Ruth Munoz APRN [address] [place] [address] PCP - General Family Medicine 02/05/19 documented as of this encounter
--- OUTSIDE RECORDS SUMMARY | 2024-09-18 16:08 | XMS_ITS | Encounter Summary ---
[place] [address] Care Team Providers Care Isolation Washer Name Role Phone Ruth Munoz LARRY Primary Care Provider + Encounter Details Date Type Department Care Team (Latest Contact Info) Description 07/01/2024 Specialty [place] [phone] Sravanthi Cardoza RPH Refill Coordination - 28 [...] Progress Notes * Sravanthi Cardoza RPH - 07/01/2024 3:03 PM EDT Clinical Management Plan: Refill [...] Allergies Medication Reconciliation Discrepancies (compared to [facility] med list) No Review Flowsheet 07/01/2024 3:03 PM Assessment What is the name of [...] date will you need this fill by? 07/06/2024 Adherence: Any missed doses? No Patient understands no changes to current drug regimen were made. Sravanthi Cardoza RPH 07/01/24 3:04 PM documented in this encounter Plan of Treatment Upcoming Encounters Date Type Department Care Team (Late st Contact Info) Description 02/19/2025 9:00 AM EDT TH Visit (TeleHealth) [place] [address] Wyatt Higgins MD [facility] [place] [address] documented as of this encounter Visit Diagnoses Not on filedocumented in this encounter Care Teams Isolation Washer Relationship Specialty Start Date End Date Ruth Munoz APRN [address] [place] [address] PCP - General Family Medicine 02/05/19 documented as of this encounter
--- OUTSIDE RECORDS SUMMARY | 2024-09-18 16:08 | XMS_ITS | Encounter Summary ---
Author Organization [facility] [place] [address] Care Team Providers Care Audiovisual Aids Technician Name Role Phone Ruth Munoz APRN [...] EDT TH Visit (TeleHealth) [place] [address] Wyatt Higgins MD [facility] [place] [address] documented as of this encounter Visit Diagnoses Not on filedocumented in this encounter Care Teams Audiovisual Aids Technician Relationship Specialty Start Date End Date Ruth Munoz APRN [address] [place] [address] PCP - General Family Medicine 02/05/19 documented as of this encounter
--- OUTSIDE RECORDS SUMMARY | 2024-09-18 16:08 | XMS_ITS | Encounter Summary ---
Author [facility] [place] [address] Care Team Providers Care Agriculture Research Director Name Role Phone Ruth Munoz Lilibeth JUAREZ Primary Care Provider + Encounter Details Date Type Department Care Team (Late st Contact Info) Description 12/05/2023 Telephone Dermatology at [address] [address] Lydia Funes RN Social History [...] would like the prescription to go to [facility] in [place]. Discussed with Dr. Gilliland and he will [...] TH Visit (TeleHealth) [place] [address] Wyatt Higgins MD [facility] [place] [address] documented as of this encounter Visit Diagnoses Not on filedocumented in this encounter Care Teams Agriculture Research Director Relationship Specialty Start Date End Date Ruth Munoz APRN [address] [place] [address] PCP - General Family Medicine 02/05/19 documented as of this encounter
--- OUTSIDE RECORDS SUMMARY | 2024-09-18 16:08 | XMS_ITS | Encounter Summary ---
Author Organization [facility] [place] [address] Care Team Providers Care Consumer Affairs Specialist Name Role Phone MunozAidan jeromeantony Mcelroy APRN Primary Care Provider + Encounter Details Date Type Department Care Team (Late st Contact Info) Description 04/04/2024 [place] [phone] Wyatt Higgins MD [facility] [place] [place] [address] Social History Tobacco Use Types Packs/Day Years [...] 04/04/2024 10:03 AM EDT Copied from CRM #[id number]. Topic: Specialty Dept CRMs - Generic Call [...] AM EDT TH Visit (TeleHealth) [place] [address] Wyatt Higgins MD [facility] [place] [address] documented as of this encounter Visit Diagnoses Not on filedocumented in this encounter Care Teams Consumer Affairs Specialist Relationship Specialty Start Date End Date Ruth Munoz, INSTRUMENTATION ENGINEER [address] [place] [address] PCP - General Family Medicine 02/05/19 documented as of this encounter
--- OUTSIDE RECORDS SUMMARY | 2024-09-18 16:08 | XMS_ITS | Encounter Summary ---
[place] [address] Care Team Providers Care Top Dyeing Machine Tender Name Role Phone Ruth Munoz LARRY Primary Care Provider + Reason for Visit * Reason Comments Specialty Refill Management Encounter Details Date Type Department Care Team (Late st Contact Info) Description 07/28/2023 Specialty [place] [address] Nura Lozano [facility] Social History Tobacco Use Types Packs/Day [...] this encounter Progress Notes * Nura Lozano [facility] - 07/28/2023 3:03 PM EDT Clinical Management [...] Known Allergies Medication Reconciliation Discrepancies (compared to [facility] med list) No Specialty Pharmacy Refill [...] AM EDT TH Visit (TeleHealth) [place] [address] Wyatt Higgins MD [facility] [place] [address] documented as of this encounter Visit Diagnoses Not on filedocumented in this encounter Care Teams Top Dyeing Machine Tender Relationship Specialty Start Date End Date Ruth Munoz APRN [address] [place] [address] PCP - General Family Medicine 02/05/19 documented as of this encounter
--- OUTSIDE RECORDS SUMMARY | 2024-09-18 16:08 | XMS_ITS | Encounter Summary ---
[place] [address] Care Team Providers Care Shoveler Name Role Phone Ruth Munoz LARRY Primary Care Provider + Reason for Visit * Reason Comments Medication Management Specialty Refill Management Encounter Details Date Type Department Care Team (Late st Contact Info) Description 03/23/2023 Specialty [place] [address] Oc Archer [facility] Social History Tobacco Use Types [...] this encounter Progress Notes * Oc Archer [facility] - 03/23/2023 12:03 PM EDT Clinical Management Plan: Refill Specialty Pharmacy Consultation; Oc Archer [facility] Comprehensive Medication Management (CMM) Martha Moon Benoit [...] Known Allergies Medication Reconciliation Discrepancies (compared to [facility] med list) No Specialty Pharmacy Refill [...] AM EDT TH Visit (TeleHealth) [place] [address] Wyatt Higgins MD [facility] [place] [address] documented as of this encounter Visit Diagnoses Not on filedocumented in this encounter Care Teams Shoveler Relationship Specialty Start Date End Date Ruth Munoz APRN [address] [place] [address] PCP - General Family Medicine 02/05/19 documented as of this encounter
--- OUTSIDE RECORDS SUMMARY | 2024-09-18 16:08 | XMS_ITS | Encounter Summary ---
[place] [address] Care Team Providers Care Manager Field Service Name Role Phone Ruth Munoz Lilibeth JUAREZ Primary Care Provider + Encounter Details Date Type Department Care Team (Late st Contact Info) Description 02/07/2023 Refill Dermatology at [place] [address] [facility] [place] [phone] Galdino Gilliland MD [address] [facility] [place] [address] Social History Tobacco Use Types Packs/Day Years [...] AM EDT TH Visit (TeleHealth) [place] [address] Wyatt Higgins MD [facility] [place] [address] documented as of this encounter Visit Diagnoses Not on filedocumented in this encounter Care Teams Manager Field Service Relationship Specialty Start Date End Date Ruth Munoz APRN [address] [place] [address] PCP - General Family Medicine 02/05/19 documented as of this encounter
--- OUTSIDE RECORDS SUMMARY | 2024-09-18 16:08 | XMS_ITS | Encounter Summary ---
[place] [address] Care Team Providers Care Director Wholesale Name Role Phone MunozRuth jerome Lilibeth JUAREZ Primary Care Provider + Encounter Details Date Type Department Care Team (Late st Contact Info) Description 08/23/2022 Telephone Dermatology at [address] [address] Benita Salazar LPN Social History [...] 3:17 PM EDT Received request from pharmacy [facility] for refill on TAC ointment. Call [...] can get it over the counter at [facility] sometimes at a cheaper ramos by one get one half off. Also look for coupon. Answered all questions and concerns. She voiced understanding. TAC ointment refill was refused. documented in this encounter Plan of Treatment Upcoming Encounters Date Type Department Care Team (Late st Contact Info) Description 02/19/2025 9:00 AM EDT TH Visit (TeleHealth) [place] [address] Wyatt Higgins MD [facility] [place] [address] documented as of this encounter Visit Diagnoses Not on filedocumented in this encounter Care Teams Director Wholesale Relationship Specialty Start Date End Date Ruth Munoz APRN [address] [place] [address] PCP - General Family Medicine 02/05/19 documented as of this encounter
--- OUTSIDE RECORDS SUMMARY | 2024-09-18 16:08 | XMS_ITS | Encounter Summary ---
[place] [address] Care Team Providers Care Linux System Engineer Name Role Phone Ruth Munoz LARRY Primary Care Provider + Reason for Visit * Reason Comments Prior Authorization Cosentyx sensoready (300 m 150 soaj Encounter Details Date Type Department Care Team (Late st Contact Info) Description 07/12/2023 Specialty [place] [address] Joanne Sheth, MORTGAGE LOAN ASSISTANT Social History Tobacco Use Types Packs/Day Years [...] of this encounter Progress Notes * Joanne Sheth - 07/12/2023 11:46 AM EDT [facility], Medication Prior Authorization Submission Patient: Martha Benoit Patient : 1965 Patient Address: [address] [facility] [address] (home) Medication Name: COSENTYX PEN 300 MG/2 PENS (150 MG/ML) SUBCUTANEOUS Medication ID: [id number] Subscriber Insurance: [place] Medicaid Subscriber Insurance Comment: Phone: Fax: Physician: TERRANCE LYNN Physician Comment: Sent Via: [facility] K[place]ler: [id number] Ref/Case/PA#: Medication Strength Frequency Requested: INJECT THE CONTENTS OF TWO PENS (300 MG) SUBCUTANEOUSLY ONCE EVERY 28 DAYS Qty/Day Supply: 12/20 New Start: Renewal Diagnosis & ICD-10 Code: Psoriasis L40.9 Patient Notified: No Submission Notes: Ju Sheth 07/12/23 11:47 AM * Joanne Sheth - 07/12/2023 11:46 AM EDT [facility], Prior Authorization Approval Medication Name: COSENTYX PEN 300 MG/2 PENS (150 MG/ML) SUBCUTANEOUS Medication ID: [id number] Approval Dates: 07/12/2023 to 07/12/2024 Insurance requirements/notes: None Other Notes: None Case/Reference #: [id number] Approval notification Received via: Fax Copay: $3.00 Copay assistance: Copay Notes: Per fill hx, $3.00 copay Insurance mandated Pharmacy: [facility] Fillable at [facility]: Yes Patient Notified: No Pharmacy staff will be reaching out to the patient to inform them of their medication's [facility]. If applicable, a pharmacist will speak with the patient to offer our specialty pharmacy services and to arrange delivery of their medication. Joanne Sheth 07/12/23 12:40 PM documented in this encounter Plan of Treatment Upcoming Encounters Date Type Department Care Team (Late st Contact Info) Description 02/19/2025 9:00 AM EDT TH Visit (TeleHealth) [place] [address] Wyatt Higgins MD [facility] [place] [address] documented as of this encounter Visit Diagnoses Not on filedocumented in this encounter Care Teams Linux System Engineer Relationship Specialty Start Date End Date Ruth Munoz, LARRY [address] [place] [address] PCP - General Family Medicine 02/05/19 documented as of this encounter
--- OUTSIDE RECORDS SUMMARY | 2024-09-18 16:08 | XMS_ITS | Encounter Summary ---
[place] [address] Care Team Providers Care Dermatologist Name Role Phone Ruth Munoz LARRY Primary Care Provider + Reason for Visit * Reason Comments Medication Management Encounter Details Date Type Department Care Team (Late st Contact Info) Description 01/16/2023 Specialty [place] [address] Sukhdev Ga RPH Social History Tobacco Use [...] Known Allergies Medication Reconciliation Discrepancies (compared to [facility] med list) No Specialty Pharmacy Refill Questionnaire [...] EDT TH Visit (TeleHealth) [place] [address] [facility] [place] [address] documented as of this encounter Visit Diagnoses Not on filedocumented in this encounter Care Teams Dermatologist Relationship Specialty Start Date End Date Ruth Munoz APRN [address] [place] [address] PCP - General Family Medicine 02/05/19 documented as of this encounter
--- OUTSIDE RECORDS SUMMARY | 2024-09-18 16:08 | XMS_ITS | Encounter Summary ---
[place] [address] Care Team Providers Care Manager Placement Name Role Phone Ruth Munoz LARRY Primary Care Provider + Reason for Visit * Reason Comments Medication Management Patient Education Encounter Details Date Type Department Care Team (Late st Contact Info) Description 06/07/2023 Specialty Pharm[place] [address] Nura Lozano [facility] Social History [...] AM EDT TH Visit (TeleHealth) [place] [address] Wyatt Higgins MD [facility] [place] [address] documented as of this encounter Visit Diagnoses Not on filedocumented in this encounter Care Teams Manager Placement Relationship Specialty Start Date End Date Ruth Munoz APRN [address] [place] [address] PCP - General Family Medicine 02/05/19 documented as of this encounter
--- OUTSIDE RECORDS SUMMARY | 2024-09-18 16:08 | XMS_ITS | Encounter Summary ---
Author Organization [facility] [place] [address] Care Team Providers Care School Librarian Name Role Phone MunozRuth jerome Lilibeth JUAREZ Primary Care Provider + Encounter Details Date Type Department Care Team (Late st Contact Info) Description 07/17/2024 Telephone [place] [address] Judith Reinoso MD [facility] [place] [address] Social History Tobacco Use Types Packs/Day Years [...] encounter Miscellaneous Notes * Telephone Encounter - Lindsay Harrell RN - 07/19/2024 9:25 AM EDT Spoke with patient on the phone and relayed the below message per Dr. Reinoso. Patient verbalized understanding and agreed with the plan. Patient states her A1C has come up higher again recently, so she will try taking the Invokana everyother day now. Patient also states she will call our office if she wants to be seen sooner by Dr. Reinoso. No further patient questions or concerns at this time. Per Dr. Reinoso: Ok to try to stop Invokana (or use it every other day) to see if she can keep A1c in 7s% further. Ok to see sooner by VDO if needed. * Telephone Encounter - Lindsay Harrell RN - 07/17/2024 4:35 PM EDT This nurse forwarded the patient message to the provider for her recommendation. * Telephone Encounter - Lindsay Harrell RN - 07/17/2024 4:35 PM EDT Copied from CRM #[id number]. Topic: Specialty Dept CRMs - Generic Call >> Jul 17, 2024 3:13 PM Lucille Mcelroy wrote: Specialist: Judith Reinoso MD Relationship (if other than patient-full name): self Reason for Call: Patient has had ongoing UTI's and believes she needs to change her Invokana. Patient wondering if there is something different she can take that could help. Patient stopped taking itfor a week and symptoms went away- restarted and symptoms came right back. Please call patient to discuss. documented in this encounter Plan of Treatment Upcoming Encounters Date Type Department Care Team (Late st Contact Info) Description 02/19/2025 9:00 AM EDT TH Visit (TeleHealth) [place] [address] Wyatt Higgins MD [facility] [place] [address] documented as of this encounter Visit Diagnoses Not on filedocumented in this encounter Care Teams School Librarian Relationship Specialty Start Date End Date Ruth Munoz APRN [address] [place] [address] PCP - General Family Medicine 02/05/19 documented as of this encounter
--- OUTSIDE RECORDS SUMMARY | 2024-09-18 16:08 | XMS_ITS | Encounter Summary ---
Author Organization [facility] [place] [address] Care Team Providers Care Digital Asset Coordinator Name Role Phone MunozRuth jerome Lilibeth JUAREZ Primary Care Provider + Reason for Visit * Reason Onset Date Comments Medication Refill 01/15/2024 Encounter Details Date Type Department Care Team (Late st Contact Info) Description 01/15/2024 Telephone [place] [address] Judith Reinoso MD [facility] [place] [address] Medication Refill Social History Tobacco Use Types [...] frequency as stated in medication list. PHARMACY NAME:[id number] - [place], [place] - [address] [facility] PHARMACY PHONE: [phone] Would patient like script sent directly to pharmacy? (Yes or no) yes Would patient like to rock picker paper script here at our office [...] AM EDT TH Visit (TeleHealth) [place] [address] Wyatt Higgins MD [facility] [place] [address] documented as of this encounter Visit Diagnoses Not on filedocumented in this encounter Care Teams Digital Asset Coordinator Relationship Specialty Start Date End Date Ruth Munoz APRN [address] [place] [address] PCP - General Family Medicine 02/05/19 documented as of this encounter
--- OUTSIDE RECORDS SUMMARY | 2024-09-18 16:08 | XMS_ITS | Encounter Summary ---
Author Organization [facility] [place] [address] Care Team Providers Care Cheese Cutter Name Role Phone MunozAidan jeromeantony Mcelroy APRN Primary Care Provider + Encounter Details Date Type Department Care Team (Latest Contact Info) Description 02/20/2023 12:35 PM EDT Laboratory Appointment Lab [address] [place] [address] Hypothyroidism, acquired; Type 2 diabetes, [...] AM EDT TH Visit (TeleHealth) [place] [address] Wyatt Higgins MD [facility] [place] [address] documented as of this encounter Procedures Procedure Name Priority Date/Time Associated Diagnosis Comments HC VITAMIN D TOTAL-25 HYDROXY Routine 02/20/2023 1:02 PM EDT History of gastric bypass Vitamin D deficiency TSH Routine 02/20/2023 1:02 PM EDT Hypothyroidism, acquired HEMOGLOBIN A1C Routine 02/20/2023 1:02 PM EDT Type 2 diabetes, controlled, with neuropathy History of gastric bypass Peripheral autonomic neuropathy due to diabetes mellitus documented in this encounter Results * Vitamin D, 25-Hydroxy (02/20/2023 1:02 PM EDT) Vitamin D Total 25 OH 43 21 - 100 ng/mL [facility] Vit D Interp Sufficient [facility] Blood 02/20/2023 1:02 PM EDT 02/20/2023 1:10 PM EDT Narrative Resulting Agency Comment Spec In Lab Judith Reinoso MD CHEMISTRY ORDERAB LES [facility] [place] [address] * (ABNORMAL) Hemoglobin A1c (02/20/2023 1:02 PM EDT) Hemoglobin A1c 6.4(H) 4.3 - 5.6 % [facility] Comment: Reference Range: 4.3 - 5.6% [...] Mellitus, Diabetes Care 2013; 36: Suppl. 1, N90-78 Estimated Average Glucose 137 mg/dL [facility] Comment: eAG equivalents for HbA1c percentages: [...] into estimated average glucose values. ??Diabetes Care 2008:31(8):2795-1863. Blood 02/20/2023 1:02 PM EDT 02/20/2023 1:10 PM EDT Narrative Resulting Agency Comment Spec In Lab Judith Reinoso MD CHEMISTRY ORDERAB LES [facility] [place] [address] * TSH (02/20/2023 1:02 PM EDT) Thyroid Stimulating Hormone 1.80 0.27 - 4.20 mcIU/mL [facility] Comment: Reference Interval (mcIU/mL): Females: ??First Trimester: 0.23-3.88 ??Second Trimester: 0.22-3.90 ??Third Trimester: 0.44-4.66 Blood 02/20/2023 1:02 PM EDT 02/20/2023 1:10 PM EDT Narrative Resulting Agency Comment Spec In Lab Judith Reinoso MD CHEMISTRY ORDERAB LES [facility] [place] [address] documented in this encounter Visit Diagnoses Diagnosis [...] deficiency documented in this encounter Care Teams Cheese Cutter Relationship Specialty Start Date End Date Ruth Munoz, MULTIPLE NEEDLE STITCHER [address] [place] [address] PCP - General Family Medicine 02/05/19 documented as of this encounter
--- OUTSIDE RECORDS SUMMARY | 2024-09-18 16:08 | XMS_ITS | Encounter Summary ---
Author Organization [facility] [place] [address] Care Team Providers Care Process Camera Operator Name Role Phone MunozRuth jerome Lilibeth JUAREZ Primary Care Provider + Reason for Visit * Reason Comments Medication Refill Encounter Details Date Type Department Care Team (Late st Contact Info) Description 08/23/2022 Refill [place] [address] Judith Reinoso MD [facility] [place] [place] [address] Social History Tobacco Use Types Packs/Day Years [...] TH Visit (TeleHealth) [place] [address] Wyatt Higgins MD [facility] [place] [address] documented as of this encounter Visit Diagnoses Not on filedocumented in this encounter Care Teams Process Camera Operator Relationship Specialty Start Date End Date Ruth Munoz APRN [address] [place] [address] PCP - General Family Medicine 02/05/19 documented as of this encounter
--- OUTSIDE RECORDS SUMMARY | 2024-09-18 16:08 | XMS_ITS | Encounter Summary ---
Author Organization [facility] [place] [address] Care Team Providers Care Welt Sole Layer Name Role Phone MunozRuth jerome Lilibeth JUAREZ Primary Care Provider + Reason for Visit * Reason Onset Date Comments Medication Refill 11/01/2022 Encounter Details Date Type Department Care Team (Late st Contact Info) Description 11/01/2022 Refill [place] [address] Shari Keller RN Social History Tobacco Use [...] EDT TH Visit (TeleHealth) [place] [address] Wyatt Higgins MD [facility] [place] [address] documented as of this encounter Visit Diagnoses Not on filedocumented in this encounter Care Teams Welt Sole Layer Relationship Specialty Start Date End Date Ruth Munoz APRN [address] [place] [address] PCP - General Family Medicine 02/05/19 documented as of this encounter
--- OUTSIDE RECORDS SUMMARY | 2024-09-18 16:08 | XMS_ITS | Encounter Summary ---
Author Organization [facility] [place] [address] Care Team Providers Care Technical Delivery Manager Name Role Phone Ruth Munoz Lilibeth JUAREZ Primary Care Provider + Reason for Visit * Reason Onset Date Comments Medication Refill 02/13/2023 Encounter Details Date Type Department Care Team (Late st Contact Info) Description 02/13/2023 Telephone [place] [phone] Shari Keller store custodian Refill Social History Tobacco Use Types Packs/Day [...] AM EDT TH Visit (TeleHealth) [place] [phone] Wyatt Higgins MD [facility] [place] [address] documented as of this encounter Results * (ABNORMAL) Hemoglobin A1c (02/20/2023 1:02 PM EDT) Hemoglobin A1c 6.4(H) 4.3 - 5.6 % [facility] Comment: Reference Range: 4.3 - [...] Diabetes Care 2013; 36: Suppl. 1, S67-74 Estimated Average Glucose 137 mg/dL [facility] Comment: eAG equivalents for HbA1c [...] into estimated average glucose values. ??Diabetes Care 2008:31(8):8330-6751. Blood 02/20/2023 1:02 PM EDT 02/20/2023 1:10 PM EDT Narrative Resulting Agency Comment Spec In Lab Judith Reinoso MD CHEMISTRY ORDERAB LES [facility] [place] [place] [address] documented in this encounter Visit Diagnoses Diagnosis Type 2 diabetes, controlled, with neuropathy Type II or unspecified type diabetes mellitus with neurological manifestations, not stated as uncontrolled History of gastric bypass Bariatric surgery status Peripheral autonomic neuropathy due to diabetes mellitus Type II or unspecified type diabetes mellitus with neurological manifestations, not stated as uncontrolled documented in this encounter Care Teams Technical Delivery Manager Relationship Specialty Start Date End Date Ruth Munoz, MED [address] [place] [address] PCP - General Family Medicine 02/05/19 documented as of this encounter
--- OUTSIDE RECORDS SUMMARY | 2024-09-18 16:08 | XMS_ITS | Encounter Summary ---
Author Organization [facility] [place] [address] Care Team Providers Care Science Center Display Builder Name Role Phone AlexanderAidanantony Mcelroy APRN Primary Care Provider + Encounter Details Date Type Department Care Team (Latest Contact Info) Description 05/03/2024 9:00 AM EDT TH Visit (TeleHealth) [place] [address] Judith Reinoso MD [facility] [place] [address] Type 2 diabetes, controlled, with neuropathy; Vitamin [...] D 50,000 iu weekly and 2 of [place] MVI with iron which contains iron (she [...] months with PCP for her A1c at [facility] lab and will let her [...] in Dec 2023 (pelvic sling surgery by CLAM PICKER). HPI: Jo Jones is a 58 y.o. [...] plans for pelvic sling surgery with her CLAM PICKER (not scheduled yet). A1c was stable at [...] since Jul 2017. She has been taking [place] multivitamin to 2 tab daily with normal [...] FreeStyle Lite Meter Kit 1 each by [facility]Non-Drug; Combo Route) route daily. 1 [...] mouth nightly. UNABLE TO FIND Med Name: [place] vitamins take one tablet by mouth twice [...] D 50,000 iu weekly and 2 of [place] MVI with iron which contains iron (she [...] months with PCP for her A1c at [facility] lab and will let her [...] EDT TH Visit (TeleHealth) [place] [address] Wyatt Higgins MD [facility] [place] [address] documented as of this encounter Visit Diagnoses Diagnosis Type 2 diabetes, controlled, with neuropathy Type II or unspecified type diabetes mellitus with neurological manifestations, not stated as uncontrolled Vitamin D deficiency Unspecified vitamin D deficiency Hypothyroidism, acquired Unspecified hypothyroidism History of gastric bypass Bariatric surgery status Dyslipidemia Other and unspecified hyperlipidemia documented in this encounter Care Teams Science Center Display Builder Relationship Specialty Start Date End Date Ruth Munoz APRN [address] [place] [address] PCP - General Family Medicine 02/05/19 documented as of this encounter
--- OUTSIDE RECORDS SUMMARY | 2024-09-18 16:08 | XMS_ITS | Encounter Summary ---
[place] [address] Care Team Providers Care Shuttle Buggy Operator Name Role Phone Ruth Munoz LARRY Primary Care Provider + Encounter Details Date Type Department Care Team (Latest Contact Info) Description 07/29/2024 Specialty [place] [address] Sukhdev Ga RPH Refill Coordination - 28 [...] Progress Notes * Sukhdev Ga RPH - 07/29/2024 3:02 PM EDT Clinical Management Plan: Refill Specialty [...] Medication Reconciliation Discrepancies (compared to [facility] med list) No Review Flowsheet 07/29/2024 3:02 PM Assessment What is the name of [...] drug regimen were made. Sukhdev Ga RPH 07/29/24 3:03 PM documented in this encounter Plan of Treatment Upcoming Encounters Date Type Department Care Team (Late st Contact Info) Description 02/19/2025 9:00 AM EDT TH Visit (TeleHealth) [place] [address] Wyatt Higgins MD [facility] [place] [address] documented as of this encounter Visit Diagnoses Not on filedocumented in this encounter Care Teams Shuttle Buggy Operator Relationship Specialty Start Date End Date Ruth Munoz APRN [address] [place] [address] PCP - General Family Medicine 02/05/19 documented as of this encounter
--- OUTSIDE RECORDS SUMMARY | 2024-09-18 16:08 | XMS_ITS | Encounter Summary ---
[place] [address] Care Team Providers Care Lap Layer Name Role Phone Ruth Munoz LARRY Primary Care Provider + Reason for Visit * Reason Comments Specialty Refill Management Encounter Details Date Type Department Care Team (Late st Contact Info) Description 09/30/2022 Specialty Pharmacy [place] [address] Sravanthi Cardoza RPH Social History Tobacco Use [...] Reconciliation Discrepancies (compared to [facility] med list) No Specialty Pharmacy [...] AM EDT TH Visit (TeleHealth) [place] [address] Wyatt Higgins MD [facility] [place] [address] documented as of this encounter Visit Diagnoses Not on filedocumented in this encounter Care Teams Lap Layer Relationship Specialty Start Date End Date Ruth Munoz APRN [address] [place] [address] PCP - General Family Medicine 02/05/19 documented as of this encounter
--- OUTSIDE RECORDS SUMMARY | 2024-09-18 16:08 | XMS_ITS | Encounter Summary ---
[place] [address] Care Team Providers Care Nursing Associate Name Role Phone Ruth Munoz LARRY Primary Care Provider + Reason for Visit * Reason Comments Medication Management Medication Refill Encounter Details Date Type Department Care Team (Late st Contact Info) Description 10/31/2022 Specialty [place] [address] Ximena Wolf RPH Social History Tobacco Use [...] [facility] med list) No Specialty Pharmacy Refill Questionnaire [...] to current drug regimen were made. Ximena Wolf RPH 10/31/22 3:20 PM documented in this encounter Plan of Treatment Upcoming Encounters Date Type Department Care Team (Late st Contact Info) Description 02/19/2025 9:00 AM EDT TH Visit (TeleHealth) [place] [address] Wyatt Higgins MD [facility] [place] [address] documented as of this encounter Visit Diagnoses Not on filedocumented in this encounter Care Teams Nursing Associate Relationship Specialty Start Date End Date Ruth Munoz APRN [address] [place] [address] PCP - General Family Medicine 02/05/19 documented as of this encounter
--- OUTSIDE RECORDS SUMMARY | 2024-09-18 16:08 | XMS_ITS | Encounter Summary ---
Author Organization [facility] [place] [address] Care Team Providers Care Pbx Operator Name Role Phone Ruth Munoz Lilibeth JUAREZ Primary Care Provider + Reason for Visit * Reason Comments Psoriasis Encounter Details Date Type Department Care Team (Late st Contact Info) Description 03/21/2023 1:45 PM EDT Office Visit Dermatology at [address] [place] [phone] Galdino Gilliland MD [address] [place] [address] Psoriasis Social History Tobacco Use Types Packs/Day [...] repeat course if needed. 2. Discussed the New [employer] website to better pricing for this [id number] expense. CC: Ruth Munoz APRN documented in this encounter Plan of Treatment Upcoming Encounters Date Type Department Care Team (Late st Contact Info) Description 02/19/2025 9:00 AM EDT TH Visit (TeleHealth) [place] [address] Wyatt Higgins MD [facility] [place] [address] documented as of this encounter Visit Diagnoses Diagnosis Psoriasis Other psoriasis documented in this encounter Care Teams Pbx Operator Relationship Specialty Start Date End Date Ruth Munoz APRN [address] [place] [address] PCP - General Family Medicine 02/05/19 documented as of this encounter
--- OUTSIDE RECORDS SUMMARY | 2024-09-18 16:08 | XMS_ITS | Encounter Summary ---
Author Organization [facility] [place] [address] Care Team Providers Care Invoice Classification Clerk Name Role Phone Ruth Munoz LARRY Primary Care Provider + Encounter Details Date Type Department Care Team (Late st Contact Info) Description 03/29/2024 Refill Dermatology at [address] [phone] Lydia Funes, RN Social History Tobacco Use [...] AM EDT TH Visit (TeleHealth) [place] [address] Wyatt Higgins MD [facility] [place] [address] documented as of this encounter Visit Diagnoses Not on filedocumented in this encounter Care Teams Invoice Classification Clerk Relationship Specialty Start Date End Date Ruth Munoz, WHEAT WASHER [address] [place] [address] PCP - General Family Medicine 02/05/19 documented as of this encounter
--- OUTSIDE RECORDS SUMMARY | 2024-09-18 16:08 | XMS_ITS | Encounter Summary ---
Author Organization [facility] [place] [address] Care Team Providers Care Resident Buyer Name Role Phone Ruth Munoz LARRY Primary Care Provider + Encounter Details Date Type Department Care Team (Late st Contact Info) Description 02/05/2024 Refill Dermatology at [address] [address] Lydia Funes RN Social History [...] Funes RN - 02/05/2024 2:25 PM EDT [facility] Spec pharmacy contacted the office and stated [...] AM EDT TH Visit (TeleHealth) [place] [address] Wyatt Higgins MD [facility] [place] [address] documented as of this encounter Visit Diagnoses Not on filedocumented in this encounter Care Teams Resident Buyer Relationship Specialty Start Date End Date Ruth Munoz APRN [address] [place] [address] PCP - General Family Medicine 02/05/19 documented as of this encounter
--- OUTSIDE RECORDS SUMMARY | 2024-09-18 16:08 | XMS_ITS | Encounter Summary ---
Author Organization [facility] [place] [address] Care Team Providers Care Senior Stack Engineer Name Role Phone MunozRuth jerome Lilibeth JUAREZ Primary Care Provider + Encounter Details Date Type Department Care Team (Late st Contact Info) Description 04/04/2023 Telephone [place] [phone] Wyatt Higgins MD [facility] [place] [address] Social History Tobacco Use Types Packs/Day Years [...] AM EDT TH Visit (TeleHealth) [place] [address] Wyatt Higgins MD [facility] [place] [address] documented as of this encounter Visit Diagnoses Not on filedocumented in this encounter Care Teams Senior Stack Engineer Relationship Specialty Start Date End Date Ruth Munoz, LARRY [address] [place] [address] PCP - General Family Medicine 02/05/19 documented as of this encounter
--- OUTSIDE RECORDS SUMMARY | 2024-09-18 16:08 | XMS_ITS | Encounter Summary ---
[place] [address] Care Team Providers Care Group President Name Role Phone Ruth Munoz LARRY Primary Care Provider + Reason for Visit * Reason Comments Medication Management Specialty Refill Management Encounter Details Date Type Department Care Team (Late st Contact Info) Description 05/10/2023 Specialty Pharmacy [place] [address] Rafal Frye RPH Social History Tobacco Use [...] Discrepancies (compared to [facility] med list) No Specialty Pharmacy Refill Questionnaire [...] EDT TH Visit (TeleHealth) [place] [address] Wyatt Higgins MD [facility] [place] [address] documented as of this encounter Visit Diagnoses Not on filedocumented in this encounter Care Teams Group President Relationship Specialty Start Date End Date Ruth Munoz APRN [address] [place] [address] PCP - General Family Medicine 02/05/19 documented as of this encounter
--- OUTSIDE RECORDS SUMMARY | 2024-09-18 16:08 | XMS_ITS | Encounter Summary ---
[place] [address] Care Team Providers Care Migration Specialist Name Role Phone Ruth Munoz LARRY Primary Care Provider + Encounter Details Date Type Department Care Team (Late st Contact Info) Description 08/21/2023 Specialty [place] [address] Louis Baeza, [facility] Social History Tobacco Use Types [...] (compared to [facility] med list) No Specialty Pharmacy Refill Questionnaire [...] AM EDT TH Visit (TeleHealth) [place] [address] Wyatt Higgins MD [facility] [place] [address] documented as of this encounter Visit Diagnoses Not on filedocumented in this encounter Care Teams Migration Specialist Relationship Specialty Start Date End Date Ruth Munoz APRN [address] [place] [address] PCP - General Family Medicine 02/05/19 documented as of this encounter
--- OUTSIDE RECORDS SUMMARY | 2024-09-18 16:08 | XMS_ITS | Encounter Summary ---
Author Organization [facility] [place] [address] Care Team Providers Care Time Clerk Name Role Phone MunozRuth jerome Lilibeth JUAREZ Primary Care Provider + Reason for Visit * Reason Comments Medication Refill Encounter Details Date Type Department Care Team (Late st Contact Info) Description 05/06/2023 [place] [phone] Judith Reinoso MD [facility] [place] [address] Social History Tobacco Use Types Packs/Day Years [...] AM EDT TH Visit (TeleHealth) [place] [phone] Wyatt Higgins MD [facility] [place] [address] documented as of this encounter Visit Diagnoses Not on filedocumented in this encounter Care Teams Time Clerk Relationship Specialty Start Date End Date Ruth Munoz APRN [address] [place] [address] PCP - General Family Medicine 02/05/19 documented as of this encounter
--- OUTSIDE RECORDS SUMMARY | 2024-09-18 16:08 | XMS_ITS | Encounter Summary ---
[place] [address] Care Team Providers Care Correctional Lieutenant Name Role Phone Ruth Munoz LARRY Primary Care Provider + Reason for Visit * Reason Comments Specialty Refill Management Cosentyx Sen soready (300 M 150 Soaj) Encounter Details Date Type Department Care Team (Late st Contact Info) Description 10/18/2023 Specialty Pharmacy [place] [address] Emerson Perez, CLIENT ACCOUNT ASSISTANT Social History Tobacco Use Types Packs/Day [...] Known Allergies Medication Reconciliation Discrepancies (compared to [facility] med list) No Specialty Pharmacy [...] AM EDT TH Visit (TeleHealth) [place] [address] Wyatt Higgins MD [facility] [place] [address] documented as of this encounter Visit Diagnoses Not on filedocumented in this encounter Care Teams Correctional Lieutenant Relationship Specialty Start Date End Date Ruth Munoz APRN [address] [place] [address] PCP - General Family Medicine 02/05/19 documented as of this encounter
--- OUTSIDE RECORDS SUMMARY | 2024-09-18 16:08 | XMS_ITS | Encounter Summary ---
Author Organization [facility] [place] [address] Care Team Providers Care Tool Grinder Name Role Phone Alexander Ruthantony Mcelroy APRN Primary Care Provider + Encounter Details Date Type Department Care Team (Latest Contact Info) Description 04/26/2023 9:30 AM EDT TH Visit (TeleHealth) [place] [address] Judith Reinoso MD [facility] [place] [address] History of gastric bypass; Vitamin D deficiency; [...] D 50,000 iu weekly and 2 of [place] MVI with iron which contains iron (she [...] with PCP for her A1c, TSH at [facility] lab and will let her [...] plan for pelvic sling surgery per her MANAGER ERP (not scheduled yet). HPI: Jo Jones is [...] plans for pelvic sling surgery with her MANAGER ERP (not scheduled yet). A1c was stable at [...] since Jul 2017. She has been taking [place] multivitamin to 2 tab daily with normal [...] Take 500 mcg by mouth daily. hydroquinone (Dev[place]) 4 % Cream Apply twice daily to face for 6 weeks, then D/C 30 g 2 FreeStyle Lite Meter Kit 1 each by [facility].(Non-Drug; Combo Route) route daily. 1 each 0 [...] mouth nightly. UNABLE TO FIND Med Name: [place] vitamins take one tablet by mouth twice [...] plan for pelvic sling surgery per her MANAGER ERP (not scheduled yet) => will need to [...] D 50,000 iu weekly and 2 of [place] MVI with iron which contains iron (she [...] with PCP for her A1c, TSH at [facility] and will let her know the [...] AM EDT TH Visit (TeleHealth) [place] [address] Wyatt Higgins MD [facility] [place] [address] documented as of this encounter Visit Diagnoses [...] hypothyroidism documented in this encounter Care Teams Tool Grinder Relationship Specialty Start Date End Date Ruth Munoz APRN [address] [place] [address] PCP - General Family Medicine 02/05/19 documented as of this encounter
--- OUTSIDE RECORDS SUMMARY | 2024-09-18 16:08 | XMS_ITS | Encounter Summary ---
Author Organization [facility] [place] [address] Care Team Providers Care Front Desk Administrator Name Role Phone MunozRuth jerome Lilibeth JUAREZ Primary Care Provider + Encounter Details Date Type Department Care Team (Late st Contact Info) Description 03/21/2023 Refill Dermatology at [address] [place] [phone] Benita Salazar, FIRE SUPERVISOR Social History Tobacco Use Types Packs/Day Years [...] AM EDT TH Visit (TeleHealth) [place] [address] Wyatt Higgins MD [facility] [place] [address] documented as of this encounter Visit Diagnoses Not on filedocumented in this encounter Care Teams Front Desk Administrator Relationship Specialty Start Date End Date Ruth Munoz, HEAT TREAT SUPERVISOR [address] [place] [address] PCP - General Family Medicine 02/05/19 documented as of this encounter
--- OUTSIDE RECORDS SUMMARY | 2024-09-18 16:08 | XMS_ITS | Encounter Summary ---
[place] [address] Care Team Providers Care Radar Signal Processing Engineer Name Role Phone Ruth Munoz LARRY Primary Care Provider + Reason for Visit * Reason Comments Medication Management Encounter Details Date Type Department Care Team (Late st Contact Info) Description 11/29/2022 Specialty [place] [address] Sukhdev Ga RPH Social History Tobacco Use [...] Reconciliation Discrepancies (compared to [facility] med list) No Specialty Pharmacy [...] AM EDT TH Visit (TeleHealth) [place] [address] Wyatt Higgins MD [facility] [place] [address] documented as of this encounter Visit Diagnoses Not on filedocumented in this encounter Care Teams Radar Signal Processing Engineer Relationship Specialty Start Date End Date Ruth Munoz APRN [address] [place] [address] PCP - General Family Medicine 02/05/19 documented as of this encounter
--- OUTSIDE RECORDS SUMMARY | 2024-09-18 16:08 | XMS_ITS | Encounter Summary ---
[place] [address] Care Team Providers Care Boiler Operators Supervisor Name Role Phone Ruth Munoz LARRY Primary Care Provider + Reason for Visit * Reason Comments Medication Management Medication Refill Encounter Details Date Type Department Care Team (Late st Contact Info) Description 12/20/2023 Specialty Pharmacy [place] [address] Bria Yousif RPH Social History Tobacco Use [...] Known Allergies Medication Reconciliation Discrepancies (compared to [facility] med list) No Specialty Pharmacy Refill Questionnaire [...] AM EDT TH Visit (TeleHealth) [place] [address] Wyatt Higgins MD [facility] [place] [address] documented as of this encounter Visit Diagnoses Not on filedocumented in this encounter Care Teams Boiler Operators Supervisor Relationship Specialty Start Date End Date Ruth Munoz APRN [address] [place] [address] PCP - General Family Medicine 02/05/19 documented as of this encounter
--- OUTSIDE RECORDS SUMMARY | 2024-09-18 16:08 | XMS_ITS | Encounter Summary ---
[place] [address] Care Team Providers Care Hospitality Workers Name Role Phone Ruth Munoz LARRY Primary Care Provider + Encounter Details Date Type Department Care Team (Late st Contact Info) Description 04/04/2024 Telephone [place] [phone] Madelin Caldwell RN Social History Tobacco Use [...] EDT TH Visit (TeleHealth) [place] [address] Wyatt Higgins MD [facility] [place] [address] documented as of this encounter Visit Diagnoses Not on filedocumented in this encounter Care Teams Hospitality Workers Relationship Specialty Start Date End Date Ruth Munoz, LARRY [address] [place] [address] PCP - General Family Medicine 02/05/19 documented as of this encounter
--- OUTSIDE RECORDS SUMMARY | 2024-09-18 16:08 | XMS_ITS | Encounter Summary ---
Author Organization [facility] [place] [address] Care Team Providers Care Foxing Closer Name Role Phone MunozRuth jerome Lilibeth JUAREZ Primary Care Provider + Encounter Details Date Type Department Care Team (Late st Contact Info) Description 03/29/2024 10:45 AM EDT TH Visit (TeleHealth) Dermatology at [address] [place] [phone] Galdino Gilliland MD [address] [facility] [place] [address] Psoriasis Social History Tobacco Use Types Packs/Day [...] AM EDT TH Visit (TeleHealth) [place] [address] Wyatt Higgins MD [facility] [place] [address] documented as of this encounter Visit Diagnoses Diagnosis Psoriasis Other psoriasis documented in this encounter Care Teams Foxing Closer Relationship Specialty Start Date End Date Ruth Munoz APRN [address] [place] [address] PCP - General Family Medicine 02/05/19 documented as of this encounter
--- OUTSIDE RECORDS SUMMARY | 2024-09-18 16:08 | XMS_ITS | Encounter Summary ---
[place] [address] Care Team Providers Care Graphic Design Assistant Name Role Phone Ruth Munoz LARRY Primary Care Provider + Encounter Details Date Type Department Care Team (Late st Contact Info) Description 12/21/2022 Specialty [place] [address] Louis Baeza, [facility] Social History Tobacco Use Types Packs/Day [...] (compared to [facility] med list) No Specialty Pharmacy Refill [...] EDT TH Visit (TeleHealth) [place] [address] Wyatt Higgins MD [facility] [place] [address] documented as of this encounter Visit Diagnoses Not on filedocumented in this encounter Care Teams Graphic Design Assistant Relationship Specialty Start Date End Date Ruth Munoz, CIRCUIT CLERK [address] [place] [address] PCP - General Family Medicine 02/05/19 documented as of this encounter
--- OUTSIDE RECORDS SUMMARY | 2024-09-18 16:08 | XMS_ITS | Encounter Summary ---
[place] [address] Care Team Providers Care Welding Machine Operator Helper Arc Name Role Phone Ruth Munoz LARRY Primary Care Provider + Reason for Visit * Reason Comments Medication Management Encounter Details Date Type Department Care Team (Late st Contact Info) Description 07/03/2023 Specialty [place] [address] Sukhdev Ga RPH Social History Tobacco Use [...] Progress Notes * Sukhdev Ga RPH - 07/03/2023 12:09 PM EDT Clinical [...] (compared to [facility] med list) No Specialty Pharmacy Refill [...] AM EDT TH Visit (Tele[place]) [place] [address] Wyatt Higgins MD [facility] [place] [address] documented as of this encounter Visit Diagnoses Not on filedocumented in this encounter Care Teams Welding Machine Operator Helper Arc Relationship Specialty Start Date End Date Ruth Munoz APRN [address] [place] [address] PCP - General Family Medicine 02/05/19 documented as of this encounter
--- OUTSIDE RECORDS SUMMARY | 2024-09-18 16:08 | XMS_ITS | Encounter Summary ---
[place] [address] Care Team Providers Care Seo Analyst Name Role Phone MunozRuth jerome Lilibeth JUAREZ Primary Care Provider + Encounter Details Date Type Department Care Team (Late st Contact Info) Description 06/07/2024 Telephone [place] [phone] Deanna Pacheco RN Social History Tobacco Use Types Packs/Day [...] encounter Miscellaneous Notes * Telephone Encounter - Deanna Pacheco RN - 06/07/2024 10:35 AM EDT Lab work faxed to PCP. - pt notified to call PCP's office. Called PCP office asked to speak with a nurse- left message with call back if questions. * Telephone Encounter - Deanna Pacheco, RN - 06/07/2024 10:21 AM EDT ----- Message from JUDITH SERRANO sent at 06/05/2024 5:12 PM EDT ----- Please FAX this urine culture result (+E. Coli) to her PCP soon and let pt know too. It could be because I checked her urine microalbumin/Cr and also UA when she requested it. She may already got antibiotics (I hope!). Thanks! JUDITH SERRANO MD ----- Message ----- From: Nimesh, [employer] Sent: 06/05/2024 2:04 PM EDT To: Judith Serrano MD documented in this encounter Plan of Treatment Upcoming Encounters Date Type Department Care Team (Late st Contact Info) Description 02/19/2025 9:00 AM EDT TH Visit (TeleHealth) [place] [address] Wyatt Higgins MD [facility] [place] [address] documented as of this encounter Visit Diagnoses Not on filedocumented in this encounter Care Teams Seo Analyst Relationship Specialty Start Date End Date Ruth Munoz, FINANCIAL SERVICES AUDITOR [address] [place] [address] PCP - General Family Medicine 02/05/19 documented as of this encounter
--- OUTSIDE RECORDS SUMMARY | 2024-09-18 16:08 | XMS_ITS | Encounter Summary ---
[place] [address] Care Team Providers Care Adoption Specialist Name Role Phone Ruth Munoz LARRY Primary Care Provider + Encounter Details Date Type Department Care Team (Latest Contact Info) Description 03/26/2024 Specialty [place] [phone] Sravanthi Cardoza RPH Refill Coordination - 28 [...] to [facility] med list) No Review Flowsheet 03/26/2024 12:14 [...] AM EDT TH Visit (TeleHealth) [place] [address] Wyatt Higgins MD [facility] [place] [address] documented as of this encounter Visit Diagnoses Not on filedocumented in this encounter Care Teams Adoption Specialist Relationship Specialty Start Date End Date Ruth Munoz APRN [address] [place] [address] PCP - General Family Medicine 02/05/19 documented as of this encounter
--- OUTSIDE RECORDS SUMMARY | 2024-09-18 16:08 | XMS_ITS | Encounter Summary ---
Author Organization [place] [address] Care Team Providers Care Cutting Room Supervisor Name Role Phone MunozRuth jerome Lilibeth JUAREZ Primary Care Provider + Encounter Details Date Type Department Care Team (Late st Contact Info) Description 02/20/2023 2:00 PM EDT [place] [address] [facility] [place] [address] Hereditary sensorimotor neuropathy Social History Tobacco Use [...] ear pain which was worked up at [facility]. No diagnosis ??I was unable to find any information on care everywhere. ??In October of this year she started to have decreased urine flow and she went to see a urologist at [facility]. Harder time urinating and defecating. ??Apparently there [...] AM EDT TH Visit (TeleHealth) [place] [address] [facility] [place] [address] documented as of this encounter Visit Diagnoses Diagnosis Hereditary sensorimotor neuropathy documented in this encounter Care Teams Cutting Room Supervisor Relationship Specialty Start Date End Date Ruth Munoz APRN [address] [place] [address] PCP - General Family Medicine 02/05/19 documented as of this encounter
--- OUTSIDE RECORDS SUMMARY | 2024-09-18 16:08 | XMS_ITS | Encounter Summary ---
[place] [address] Care Team Providers Care Sanitary Engineering Teacher Name Role Phone MunozRuth jerome Lliibeth JUAREZ Primary Care Provider + Reason for Visit * Reason Comments Medication Refill Encounter Details Date Type Department Care Team (Late st Contact Info) Description 08/23/2022 Refill Dermatology at [address] [place] [address] Galdino Gilliland MD [address] [facility] [place] [address] Social History Tobacco Use Types Packs/Day Years [...] EDT TH Visit (TeleHealth) [place] [phone] Wyatt Higgins MD [facility] [place] [address] documented as of this encounter Visit Diagnoses Not on filedocumented in this encounter Care Teams Sanitary Engineering Teacher Relationship Specialty Start Date End Date Ruth Munoz, LARRY [address] [place] [address] PCP - General Family Medicine 02/05/19 documented as of this encounter
--- OUTSIDE RECORDS SUMMARY | 2024-09-18 16:08 | XMS_ITS | Encounter Summary ---
Author Organization [facility] [place] [address] Care Team Providers Care Lamp Wirer Name Role Phone MunozRuth jerome Lilibeth JUAREZ Primary Care Provider + Encounter Details Date Type Department Care Team (Late st Contact Info) Description 03/21/2023 Refill Dermatology at [address] [place] [phone] Benita Salazar, HAND TIER Social History Tobacco Use Types Packs/Day Years [...] AM EDT TH Visit (TeleHealth) [place] [address] Wyatt Higgins MD [facility] [place] [address] documented as of this encounter Visit Diagnoses Not on filedocumented in this encounter Care Teams Lamp Wirer Relationship Specialty Start Date End Date Ruth Munoz, PROFESSOR OF FOOD BIOCHEMISTRY [address] [place] [address] PCP - General Family Medicine 02/05/19 documented as of this encounter
--- OUTSIDE RECORDS SUMMARY | 2024-09-18 16:08 | XMS_ITS | Encounter Summary ---
[place] [address] Care Team Providers Care Receiving Weigher Name Role Phone Ruth Munoz LARRY Primary Care Provider + Encounter Details Date Type Department Care Team (Late st Contact Info) Description 01/15/2024 [place] [phone] Shari Keller RN Social History Tobacco Use [...] 01/15/2024 4:16 PM EDT Copied from CRM #[id number]. Topic: Specialty Dept CRMs - Orders >> [...] D-H: Yes If Yes, Name of Facility: [facility] Address: [address] [place] [address] , [place] [address] ?? Phone #: [phone] Fax #: unknown documented in this encounter Plan of Treatment Upcoming Encounters Date Type Department Care Team (Late st Contact Info) Description 02/19/2025 9:00 AM EDT TH Visit (TeleHealth) [place] [address] [facility] [place] [address] Scheduled Orders Name Type Priority Associated Diagnoses [...] hypothyroidism documented in this encounter Care Teams Receiving Weigher Relationship Specialty Start Date End Date Ruth Munoz APRN [address] [place] [address] PCP - General Family Medicine 02/05/19 documented as of this encounter
--- OUTSIDE RECORDS SUMMARY | 2024-09-18 16:08 | XMS_ITS | Encounter Summary ---
[place] [address] Care Team Providers Care Business Unit Director Name Role Phone Ruth Munoz LARRY Primary Care Provider + Encounter Details Date Type Department Care Team (Late st Contact Info) Description 06/06/2024 [place] [phone] Shari Keller RN Social History Tobacco Use [...] Telephone Encounter - Shari Keller RN - 06/06/2024 7:22 AM EDT Copied from [facility] #[id number]. Topic: Specialty Dept CRMs - Triage >> Jun 05, 2024 3:16 PM Marielle Mireles wrote: Triage Message Specialist: Judith Reinoso MD Relationship (if other than patient-full name): self Symptom: frequent UTIs Has patient experienced symptom before yes If patient has experienced symptom before, when was the last time this occurred last week Is patient currently having symptom yes When did symptom begin last week Additional Comments: Patient states that her PCP advised patient to call Judith Reinoso MD and discuss recent frequency of UTIs. PCP advised patient that she questions if patient should discontinue taking Invokana 300 mg tablet as PCP believes this may have something to do with the UTIs, however, patient states she really doesn't want to stop taking it as it works so well at controlling her sugar. Patient states she recently had colon and bladder surgery and is more inclined to believe the surgeries are the culprit. Please call patient back to discuss. documented in this encounter Plan of Treatment Upcoming Encounters Date Type Department Care Team (Late st Contact Info) Description 02/19/2025 9:00 AM EDT TH Visit (TeleHealth) [place] [address] Wyatt Higgins MD [facility] [place] [address] documented as of this encounter Visit Diagnoses Not on filedocumented in this encounter Care Teams Business Unit Director Relationship Specialty Start Date End Date Ruth Munoz APRN [facility] [address] [place] [address] PCP - General Family Medicine 02/05/19 documented as of this encounter
--- OUTSIDE RECORDS SUMMARY | 2024-09-18 16:08 | XMS_ITS | Encounter Summary ---
[place] [address] Care Team Providers Care Coin Dealer Name Role Phone Ruth Munoz LARRY Primary Care Provider + Reason for Visit * Reason Comments Medication Management Specialty Refill Management Encounter Details Date Type Department Care Team (Late st Contact Info) Description 09/02/2022 Specialty [place] [address] Rafal Frye RPH Social History Tobacco Use [...] Known Allergies Medication Reconciliation Discrepancies (compared to [facility] med list) No Specialty Pharmacy Refill [...] EDT TH Visit (TeleHealth) [place] [address] Wyatt Higgins MD [facility] [place] [address] documented as of this encounter Visit Diagnoses Not on filedocumented in this encounter Care Teams Coin Dealer Relationship Specialty Start Date End Date Ruth Munoz APRN [address] [place] [address] PCP - General Family Medicine 02/05/19 documented as of this encounter
--- OUTSIDE RECORDS SUMMARY | 2024-09-18 16:08 | XMS_ITS | Encounter Summary ---
[place] [address] Care Team Providers Care Principal Associate Name Role Phone Ruth Munoz LARRY Primary Care Provider + Reason for Visit * Reason Comments Specialty Refill Management Encounter Details Date Type Department Care Team (Late st Contact Info) Description 04/17/2023 Specialty Pharmacy [place] [address] Jessica Clayton CPHT Social History Tobacco Use [...] Known Allergies Medication Reconciliation Discrepancies (compared to [facility] med list) No Specialty Pharmacy Refill [...] AM EDT TH Visit (TeleHealth) [place] [address] Wyatt Higgins MD [facility] [address] documented as of this encounter Visit Diagnoses Not on filedocumented in this encounter Care Teams Principal Associate Relationship Specialty Start Date End Date Ruth Munoz APRN [address] [place] [address] PCP - General Family Medicine 02/05/19 documented as of this encounter
--- OUTSIDE RECORDS SUMMARY | 2024-09-18 16:09 | XMS_ITS | Encounter Summary ---
Author Organization [facility] [place] [address] Care Team Providers Care Bilingual Student Tutor Name Role Phone MunozAidan jeromeantony Mcelroy APRN Primary Care Provider + Reason for Visit * Reason Comments Follow-up Encounter Details Date Type Department Care Team (Late st Contact Info) Description 06/07/2022 1:00 PM EDT Office Visit [place] [address] Judith Reinoso MD [facility] [place] [place] [address] Type 2 diabetes, controlled, with neuropathy; Hypothyroidism, [...] D 50,000 iu weekly and 2 of [place] MVI with iron which contains iron (she [...] with PCP for her A1c, TSH at [facility] lab and will let her [...] lab results today. She has been taking [place] multivitamin to 2 tab daily with normal [...] End:06/20/22 ??? fluticasone propionate (Flonase) 50 mcg/actuation Hendricks, Suspension INSTILL ONE SPRAY INTO BOTHNOSTRIL TWICE DAILY ??? penicillin v potassium (VEETID) 500 mg Tablet Take 500 mg by mouth 2 times daily. ??? halcinonide (Halog) 0.1 % external solution Apply once to twice a day as needed to scalp. (Patient not taking: Reported on 06/07/2022) 60 mL 3 ??? UNABLE TO FIND Med Name: Fargo vitamins take one tablet by mouth twice [...] 80.7 kg (178 lb) LMP 10/30/2015 (Approximate) TuP832% BMI 32.56 kg/m?? Appearance: Non-obese, pleasant, NAD, [...] D 50,000 iu weekly and 2 of [place] MVI with iron which contains iron (she [...] with PCP for her A1c, TSH at [facility] lab and will let her [...] EDT TH Visit (TeleHealth) [place] [address] Wyatt Higgins MD [facility] [place] [address] documented as of this encounter Visit Diagnoses Diagnosis Type 2 diabetes, controlled, with neuropathy Type II or unspecified type diabetes mellitus with neurological manifestations, not stated as uncontrolled Hypothyroidism, acquired Unspecified hypothyroidism Vitamin D deficiency Unspecified vitamin D deficiency History of gastric bypass Bariatric surgery status Dyslipidemia Other and unspecified hyperlipidemia documented in this encounter Care Teams Bilingual Student Tutor Relationship Specialty Start Date End Date Ruth Munoz, LABORATORY TESTER [address] [place] [address] PCP - General Family Medicine 02/05/19 documented as of this encounter
--- OUTSIDE RECORDS SUMMARY | 2024-09-18 16:09 | XMS_ITS | Encounter Summary ---
Author Organization [place] [address] Care Team Providers Care Mobile Developer Name Role Phone Ruth Munoz Lilibeth JUAREZ Primary Care Provider + Encounter Details Date Type Department Care Team (Late st Contact Info) Description 03/24/2022 Telephone Dermatology at [address] [address] Lydia Funes RN Social History [...] stated she understood. E-scribed the medication to [facility] in [place] per patient's request. documented in this encounter Plan of Treatment Upcoming Encounters Date Type Department Care Team (Late st Contact Info) Description 02/19/2025 9:00 AM EDT TH Visit (TeleHealth) [place] [address] Wyatt Higgins MD [facility] [place] [address] documented as of this encounter Visit Diagnoses Not on filedocumented in this encounter Care Teams Mobile Developer Relationship Specialty Start Date End Date Ruth Munoz APRN [address] [place] [address] PCP - General Family Medicine 02/05/19 documented as of this encounter
--- OUTSIDE RECORDS SUMMARY | 2024-09-18 16:09 | XMS_ITS | Encounter Summary ---
Author Organization [facility] [place] [address] Care Team Providers Care Bacon Skinner Name Role Phone MunozRuth jerome Lilibeth JUAREZ Primary Care Provider + Encounter Details Date Type Department Care Team (Late st Contact Info) Description 03/17/2022 Refill Dermatology at [address] [place] [address] Benita Salazar, KNOCKER OUT Social History Tobacco Use Types Packs/Day Years [...] AM EDT TH Visit (TeleHealth) [place] [address] Wyatt Higgins MD [facility] [place] [address] documented as of this encounter Visit Diagnoses Not on filedocumented in this encounter Care Teams Bacon Skinner Relationship Specialty Start Date End Date Ruth Munoz, HAND CUTTER APPRENTICE [address] [place] [address] PCP - General Family Medicine 02/05/19 documented as of this encounter
--- OUTSIDE RECORDS SUMMARY | 2024-09-18 16:09 | XMS_ITS | Encounter Summary ---
[place] [address] Care Team Providers Care Coding Advisor Name Role Phone MunozRuth jerome Lilibeth JUAREZ Primary Care Provider + Reason for Visit * Reason Comments Medication Refill Encounter Details Date Type Department Care Team (Late st Contact Info) Description 07/29/2022 Refill Dermatology at [address] [place] [address] Galdino Gilliland MD [address] [facility] [place] [address] Social History Tobacco Use Types Packs/Day Years [...] Visit (TeleHealth) [place] [address] Wyatt Higgins MD [facility] [place] [address] documented as of this encounter Visit Diagnoses Not on filedocumented in this encounter Care Teams Coding Advisor Relationship Specialty Start Date End Date Ruth Munoz, LARRY [address] [place] [address] PCP - General Family Medicine 02/05/19 documented as of this encounter
--- OUTSIDE RECORDS SUMMARY | 2024-09-18 16:09 | XMS_ITS | Encounter Summary ---
Author [place] [address] Care Team Providers Care Feed Research Technician Name Role Phone Ruth Munoz LARRY Primary Care Provider + Reason for Visit * Reason Comments Medication Management Encounter Details Date Type Department Care Team (Late st Contact Info) Description 01/18/2022 Specialty [place] [address] Sravanthi Cardoza RPH Social History Tobacco Use [...] RPH Comprehensive Medication Management (CMM) Martha Benoit [facility] Specialty Pharmacy has made numerous unsuccessful attempts [...] AM EDT TH Visit (TeleHealth) [place] [address] Wyatt Higgins MD [facility] [place] [address] documented as of this encounter Visit Diagnoses Not on filedocumented in this encounter Care Teams Feed Research Technician Relationship Specialty Start Date End Date Ruth Munoz, LARRY [address] [place] [address] PCP - General Family Medicine 02/05/19 documented as of this encounter
--- OUTSIDE RECORDS SUMMARY | 2024-09-18 16:09 | XMS_ITS | Encounter Summary ---
[place] [address] Care Team Providers Care Mine Engineering Superintendent Name Role Phone Ruth Munoz Lilibeth JUAREZ Primary Care Provider + Encounter Details Date Type Department Care Team (Late st Contact Info) Description 06/09/2022 Refill Dermatology at [place] [address] [facility] [address] Galdino Gilliland MD [address] [facility] [place] [address] Social History Tobacco Use Types Packs/Day Years [...] AM EDT TH Visit (TeleHealth) [place] [phone] Wyatt Higgins MD [facility] [place] [address] documented as of this encounter Visit Diagnoses Not on filedocumented in this encounter Care Teams Mine Engineering Superintendent Relationship Specialty Start Date End Date Ruth Munoz APRN [address] [place] [address] PCP - General Family Medicine 02/05/19 documented as of this encounter
--- OUTSIDE RECORDS SUMMARY | 2024-09-18 16:09 | XMS_ITS | Encounter Summary ---
Author [facility] [place] [address] Care Team Providers Care Companion Name Role Phone Ruth Munoz LARRY Primary Care Provider + Reason for Visit * Reason Comments Psoriasis Encounter Details Date Type Department Care Team (Late st Contact Info) Description 03/17/2022 3:00 PM EDT Office Visit Dermatology at [address] [place] [phone] Galdino Gilliland MD [address] [facility] [address] [place] [address] Psoriasis Social History Tobacco Use Types Packs/Day [...] post 2 months of methotrexate??without significant improvement aMrtha follows up and states that her psoriasis [...] AM EDT TH Visit (TeleHealth) [place] [address] Wyatt Higgins MD [facility] [place] [address] documented as of this encounter Visit Diagnoses Diagnosis Psoriasis Other psoriasis documented in this encounter Care Teams Companion Relationship Specialty Start Date End Date Ruth Munoz, ALTERATIONS SUPERVISOR [address] [place] [address] PCP - General Family Medicine 02/05/19 documented as of this encounter
--- OUTSIDE RECORDS SUMMARY | 2024-09-18 16:09 | XMS_ITS | Encounter Summary ---
Author Organization [facility] [place] [address] Care Team Providers Care Cook Camp Name Role Phone MunozRuth jerome Lilibeth JUAREZ Primary Care Provider + Encounter Details Date Type Department Care Team (Late st Contact Info) Description 06/07/2022 3:30 PM EDT [place] [address] Wyatt Higgins MD [facility] [place] [address] Type 2 diabetes mellitus with diabetic neuropathy, unspecified whether [place] [facility] insulin use; Peripheral autonomic neuropathy due to [...] ear pain which was worked up at [facility]. I was unable to find any information on care everywhere. In October of this year she started to have decreased urine flow and she went to see a urologist at [facility]. Harder time urinating and defecating. Apparently there [...] AM EDT TH Visit (TeleHealth) [place] [address] Wyatt Higgins MD [facility] [place] [address] documented as of this encounter Visit Diagnoses Diagnosis Type 2 diabetes mellitus with diabetic neuropathy, unspecified whether [place] [facility] insulin use Peripheral autonomic neuropathy due to diabetes mellitus Type II or unspecified type diabetes mellitus with neurological manifestations, not stated as uncontrolled Hereditary sensorimotor neuropathy documented in this encounter Care Teams Cook Camp Relationship Specialty Start Date End Date Ruth Munoz APRN [address] [place] [address] PCP - General Family Medicine 02/05/19 documented as of this encounter
--- OUTSIDE RECORDS SUMMARY | 2024-09-18 16:09 | XMS_ITS | Encounter Summary ---
[place] [address] Care Team Providers Care Row Boss Hoeing Name Role Phone Ruth Munoz LARRY Primary Care Provider + Reason for Visit * Reason Comments Specialty Refill Management Encounter Details Date Type Department Care Team (Late st Contact Info) Description 07/08/2022 Specialty [place] [address] Sravanthi Cardoza RPH Social History Tobacco Use [...] AM EDT TH Visit (TeleHealth) [place] [address] Wyatt Higgins MD [facility] [place] [address] documented as of this encounter Visit Diagnoses Not on filedocumented in this encounter Care Teams Row Boss Hoeing Relationship Specialty Start Date End Date Ruth Munoz APRN [address] [place] [address] PCP - General Family Medicine 02/05/19 documented as of this encounter
--- OUTSIDE RECORDS SUMMARY | 2024-09-18 16:09 | XMS_ITS | Encounter Summary ---
Author Organization [facility] [place] [address] Care Team Providers Care Cell Installer Name Role Phone AlexanderAidanantony Mcelroy APRN Primary Care Provider + Encounter Details Date Type Department Care Team (Late st Contact Info) Description 05/18/2022 Telephone Dermatology at [address] [address] Benita Salazar LPN Social History [...] to try another biologic. She has contacted [facility] specialty pharmacy her decision to continue with Cocentyx. She will contact Dr. Gilliland next month if she decides a different plan of care. documented in this encounter Plan of Treatment Upcoming Encounters Date Type Department Care Team (Late st Contact Info) Description 02/19/2025 9:00 AM EDT TH Visit (TeleHealth) [place] [address] Wyatt Higgins MD [facility] [place] [address] documented as of this encounter Visit Diagnoses Not on filedocumented in this encounter Care Teams Cell Installer Relationship Specialty Start Date End Date Ruth Munoz, EVAPORATOR [address] [place] [address] PCP - General Family Medicine 02/05/19 documented as of this encounter
--- OUTSIDE RECORDS SUMMARY | 2024-09-18 16:09 | XMS_ITS | Encounter Summary ---
Author Organization [facility] [place] [address] Care Team Providers Care Artillery Meteorological Man Name Role Phone MunozRuth jerome Lilibeth JUAREZ Primary Care Provider + Reason for Visit * Reason Comments Medication Refill Encounter Details Date Type Department Care Team (Late st Contact Info) Description 06/01/2022 Refill [place] [phone] Judith Reinoso MD [facility] [place] [address] Social History Tobacco Use Types Packs/Day Years [...] AM EDT TH Visit (TeleHealth) [place] [address] Wyatt Higgins MD [facility] [place] [address] documented as of this encounter Visit Diagnoses Not on filedocumented in this encounter Care Teams Artillery Meteorological Man Relationship Specialty Start Date End Date Ruth Munoz APRN [address] [place] [address] PCP - General Family Medicine 02/05/19 documented as of this encounter
--- OUTSIDE RECORDS SUMMARY | 2024-09-18 16:09 | XMS_ITS | Encounter Summary ---
[place] [address] Care Team Providers Care Seismograph Computer Name Role Phone Ruth Munoz LARRY Primary Care Provider + Reason for Visit * Reason Comments Specialty Refill Management Encounter Details Date Type Department Care Team (Late st Contact Info) Description 06/09/2022 Specialty [place] [address] Sravanthi Cardoza RPH Social History Tobacco Use [...] Known Allergies Medication Reconciliation Discrepancies (compared to [facility] med list) No Specialty Pharmacy Refill Questionnaire [...] AM EDT TH Visit (TeleHealth) [place] [address] Wyatt Higgins MD [facility] [place] [address] documented as of this encounter Visit Diagnoses Not on filedocumented in this encounter Care Teams Seismograph Computer Relationship Specialty Start Date End Date Ruth Munoz APRN [address] [place] [address] PCP - General Family Medicine 02/05/19 documented as of this encounter
--- OUTSIDE RECORDS SUMMARY | 2024-09-18 16:09 | XMS_ITS | Encounter Summary ---
Author Organization [facility] [place] [address] Care Team Providers Care Hydrator Operator Name Role Phone Ruth Munoz BRIQUETTE MACHINE OPERATOR Primary Care Provider + Encounter Details Date Type Department Care Team (Latest Contact Info) Description 10/05/2021 8:00 AM EST TH Visit (TeleHealth) [place] [address] Christiana Jewell APRN [facility] [place] [address] [facility] [place] [address] Status post bariatric surgery; Intestinal malabsorption, unspecified [...] Patient Instructions * Patient Instructions* Christiana Jewell, BRIQUETTE MACHINE OPERATOR - 10/05/2021 8:00 AM EST [facility] technical support engineer Latosha [phone] and Julia [phone] Dietitians: [phone] Surgeons/ nurse practitioners: [phone] Nurse line: [phone] Dear Martha, Please see your electronic medical record note from today for details we discussed at your visit. Below is some additional general information that you may find helpful. Testing: It would be helpful if you can have your lab work drawn a couple days before your visit galen [facility] facility so the results are available at the time of your follow up visit. If you have labwork done by your primary respiratory care instructor before that date, please have a copy sent to the Bariatric Surgery Program. Please call/send my [employer] message if you have not heard from us within 2 weeks of having labs work done. Here's the link to [facility] Lab hours and locations: [email or web address] Next visit: Follow up visits are done at 4 months and 12 months after surgery and yearly thereafter. Some patients are evaluated on a more frequent basis. Please call [phone] if you do not receive an appointment [...] Blow dry area on low setting with behavioral science chair. 3. Avoid excessive heat and/or sweating as [...] such as Ibuprofen (Advil), Aleve (Naproxen), Excedrin, [place]omen[place] should be used sparingly after gastric bypass, [...] Our post surgery support group meets at [facility] on the first Monday of every month from 1:00 PM-2:00 PM. You can attend online or in person. Use the following link to attend online: [email or web address] Nutrition and Activity apps- Baritastic, My Fitness Pal, Lose It, My Plate Internet resources: www.[employer] www.PillGuardrdingtoZilyo.Vadxx Energy www.bariatriceating.com www.American Ambulance CompanyPal.Vadxx Energy/blog [facility] facebook page: https://www.facebook.com/[facility]ER[facility]ORDBariatricSurgery Books & Magazines: - Recipes for Life After Weight Loss Surgery by Ashli Wiseman - Shrink Yourself by Dr Stephen Dial - Eating Well - www.Kodak Alaris.Vadxx Energy - Cooking Light- www.cookinglight.Vadxx Energy Anxiety: The Happiness Trap by Mir Short The Mindfulness and acceptance workbook for anxiety By James Sunshine. Mindful eating: What are you Hungry For? By Jose Duran The Mindful Diet by Abby Hernandez and the [facility] group. Emotional eating: End Emotional [...] Supplement Type Brand/Form Dosage/Amount Frequency Comments Multivitamin [place]'s chewable 1 Twice??daily ?? Calcium ? none [...] foot drop bilaterally and using walker. Does manager actuarial,would like to add in resistance bands. ASSESSMENT: [...] from the [place] [address] BARIATRIC SURGERY VIRTUAL NOTE 1. Reason/purpose for [...] regimen re: neuropathy of bowel and bladder). AIR QUALITY CONSULTANT: post menopausal. Skin: + redundant skin. Skin fold rashes as well as psoriatic flares. Follows with dermatology. Well managed, denies concerns today. Health Habits: Tobacco/Nicotine use: None. ETOH use: None. No NSAID use. Dietary history/ exericse/ activity level: See dietitian note from today's visit for complete dietary evaluation. Meds and Allergies reviewed. Complications summary: Early Prolonged hospital stay. Admitted to [facility] on 01/24/16 with nausea and vomiting, failure to progress diet. Transfer to [facility] on 01/25/16 Late none Pre-op 11/03/15 Wt [...] empty calories). o Patient has met with leakage tester today, please see note for additional details/dietary [...] If labwork is done by the primary respiratory care instructor: please send a copy to the Bariatric Surgery Program, General Surgery Clinic, [facility], or fax [phone] documented in this encounter Plan of Treatment Upcoming Encounters Date Type Department Care Team (Late st Contact Info) Description 02/19/2025 9:00 AM EDT TH Visit (TeleHealth) [place] [address] Wyatt Higgins MD [facility] [place] [address] documented as of this encounter Visit Diagnoses Diagnosis Status post bariatric surgery Bariatric surgery status Intestinal malabsorption, unspecified type documented in this encounter Care Teams Hydrator Operator Relationship Specialty Start Date End Date Ruth Munoz, BRIQUETTE MACHINE OPERATOR [address] [place] [address] PCP - General Family Medicine 02/05/19 documented as of this encounter
--- OUTSIDE RECORDS SUMMARY | 2024-09-18 16:09 | XMS_ITS | Encounter Summary ---
[place] [address] Care Team Providers Care Wedding Florist Name Role Phone MunozRuth jerome Lilibeth JUAREZ Primary Care Provider + Encounter Details Date Type Department Care Team (Late st Contact Info) Description 04/05/2022 Orders [place] [address] Wyatt Higgins MD [facility] [address] Type 2 diabetes mellitus with diabetic neuropathy, unspecified whether termite control servicer insulin use Social History Tobacco Use Types [...] AM EDT TH Visit (TeleHealth) [place] [address] Wyatt Higgins MD [facility] [place] [address] Scheduled Orders Name Type Priority Associated Diagnoses Orde r Schedule Hemoglobin A1c Lab Routine Type 2 diabetes mellitus with diabetic neuropathy, unspecified whether residential insulin use Expected: 05/05/2022 (Approximate), Expires: 11/04/2022 documented as of this encounter Visit Diagnoses Diagnosis Type 2 diabetes mellitus with diabetic neuropathy, unspecified whether residential insulin use documented in this encounter Care Teams Wedding Florist Relationship Specialty Start Date End Date Ruth Munoz APRN [address] [place] [address] PCP - General Family Medicine 02/05/19 documented as of this encounter
--- OUTSIDE RECORDS SUMMARY | 2024-09-18 16:09 | XMS_ITS | Encounter Summary ---
Author Organization [facility] [place] [address] Care Team Providers Care Valance Cutter Name Role Phone Ruth Munoz LARRY Primary Care Provider + Reason for Visit * Reason Comments Establish Care Encounter Details Date Type Department Care Team (Late st Contact Info) Description 06/07/2022 1:30 PM EDT Office [place] [address] Christiana Jewell APRN [facility] [place] [address] [facility] [place] [address] Status post bariatric surgery; Disorder of iron [...] Patient Instructions * Patient Instructions* Christiana Jewell, PRIMARY COUNSELOR - 06/07/2022 1:30 PM EDT [facility] merchandise support associate Latosha [phone] and Julia [phone] Dietitians: [phone] Surgeons/ nurse practitioners: [phone] Nurse line: [phone] Dear Martha, Please see your electronic medical record note from today for details we discussed at your visit. Below is some additional general information that you may find helpful. Testing: It would be helpful if you can have your lab work drawn a couple days before your visit galen [facility] facility so the results are available at the time of your follow up visit. If you have labwork done by your primary career professional before that date, please have a copy sent to the Bariatric Surgery Program. Please call/send my whoactually message if you have not heard from us within 2 weeks of having labs work done. Here's the link to [facility] Lab hours and locations: [email or web address] Next visit: Follow up visits are done at 4 months and 12 months after surgery and yearly thereafter. Some patients are evaluated on a more frequent basis. Please call [phone] if you do not receive an appointment [...] Blow dry area on low setting with repairer hairspring. Avoid excessive heat and/or sweating as friction [...] such as Ibuprofen (Advil), Aleve (Naproxen), Excedrin, [place] should be used sparingly after gastric bypass, [...] Our post surgery support group meets at [facility] on the first Monday of every month from 1:00 PM-2:00 PM. You can attend online or in person. Use the following link to attend online: [email or web address] Nutrition and Activity apps- Baritastic, My Fitness Pal, Lose It, My Plate Internet resources: www.LAFASO www.Derbywire www.ideaForgeeaNGRAIN.Broncus Technologies, Inc. www.Sailthru.com/blog [facility] facebook page: https://www.facebook.com/[facility] CITYBariatricSurgery Books & Magazines: - Recipes for Life After Weight Loss Surgery by Ashli Wiseman - Shrink Yourself by Dr Stephen Dial - Eating Well - www.Stratio Technology.Broncus Technologies, Inc. - Cooking Light- www.cookinglight.Broncus Technologies, Inc. Anxiety: The Happiness Trap by Mir Short The Mindfulness and acceptance workbook for anxiety By James Sunshine. Mindful eating: What are you Hungry For? By Jose Duran The Mindful Diet by Abby Hernandez and the [facility] group. Emotional eating: End Emotional Eating by Nany Matos Calming the Emotional Storm Floresita Cortes documented in this encounter Progress Notes * Christiana Jewell APRN - 06/07/2022 1:30 PM [place] [address] Reason for visit: Bariatric Surgery follow up [...] as above. Moving bowels every other day. TECHNICAL SERVICES ASSISTANT: Post-menopausal. Skin: No c/o redundant skin or skin fold rashes. Health Habits: Tobacco: Never. ETOH: Never.. NSAID use: None. Dietary history/ exericse/ activity level: See dietitian note from today's visit for complete dietary evaluation. Meds and Allergies reviewed. Complications summary: Early Prolonged hospital stay. Admitted to [facility] on 01/24/16 with nausea and vomiting, failure to progress diet. Transfer to [facility] on 01/25/16 Late none ? Pre-op 1/12/16 [...] empty calorie). o Patient has met with parts room associate today, please see note for additional details/dietary [...] If labwork is done by the primary career professional: please send a copy to the Bariatric Surgery Program, General Surgery Clinic, [facility], or fax [phone] * Nany Tai, RD - 06/07/2022 1:30 [...] Supplement Type Brand/Form Dosage/Amount Frequency Comments Multivitamin [place]'s chewable 1 Twice??daily ?? Calcium ? none [...] Snack Lunch PM Snack Dinner Going to [employer] for dinner. Will likely have ribs and [...] foot drop bilaterally and using walker. 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
--- OUTSIDE RECORDS SUMMARY | 2024-09-18 16:09 | XMS_ITS | Encounter Summary ---
[place] [address] Care Team Providers Care Phlebotomy Program Coordinator Name Role Phone Ruth Munoz LARRY Primary Care Provider + Reason for Visit * Reason Comments Medication Refill Medication Management Encounter Details Date Type Department Care Team (Late st Contact Info) Description 10/18/2021 Specialty [place] [address] Aaron Nunez RPH Social History Tobacco Use [...] Known Allergies Medication Reconciliation Discrepancies (compared to [facility] med list) No Specialty Pharmacy [...] Visit (TeleHealth) [place] [address] Wyatt Higgins MD [facility] [place] [address] documented as of this encounter Visit Diagnoses Not on filedocumented in this encounter Care Teams Phlebotomy Program Coordinator Relationship Specialty Start Date End Date Ruth Munoz APRN [address] [place] [address] PCP - General Family Medicine 02/05/19 documented as of this encounter
--- OUTSIDE RECORDS SUMMARY | 2024-09-18 16:09 | XMS_ITS | Encounter Summary ---
[place] [address] Care Team Providers Care Tourist Home Keeper Name Role Phone MunozRuth jerome Lilibeth JUAREZ Primary Care Provider + Encounter Details Date Type Department Care Team (Late st Contact Info) Description 09/09/2021 Refill Dermatology at [place] [address] [facility] [place] [address] Galdino Gilliland MD [address] [facility] [place] [address] Social History Tobacco Use Types Packs/Day Years [...] AM EDT TH Visit (TeleHealth) [place] [address] Wyatt Higgins MD [facility] [address] documented as of this encounter Visit Diagnoses Not on filedocumented in this encounter Care Teams Tourist Home Keeper Relationship Specialty Start Date End Date Ruth Munoz APRN [address] [place] [address] PCP - General Family Medicine 02/05/19 documented as of this encounter
--- OUTSIDE RECORDS SUMMARY | 2024-09-18 16:09 | XMS_ITS | Encounter Summary ---
[place] [address] Care Team Providers Care Electrician Locomotive Name Role Phone Ruth Munoz LARRY Primary Care Provider + Reason for Visit * Reason Comments Medication Refill Encounter Details Date Type Department Care Team (Late st Contact Info) Description 04/15/2022 Specialty [place] [address] Aaron Nunez RPH Social History Tobacco Use [...] Known Allergies Medication Reconciliation Discrepancies (compared to [facility] med list) No Specialty Pharmacy [...] AM EDT TH Visit (TeleHealth) [place] [address] Wyatt Higgins MD [facility] [place] [address] documented as of this encounter Visit Diagnoses Not on filedocumented in this encounter Care Teams Electrician Locomotive Relationship Specialty Start Date End Date Ruth Munoz APRN [address] [place] [address] PCP - General Family Medicine 02/05/19 documented as of this encounter
--- OUTSIDE RECORDS SUMMARY | 2024-09-18 16:09 | XMS_ITS | Encounter Summary ---
Author Organization [facility] [place] [address] Care Team Providers Care Financial Secretary Name Role Phone MunozRuth jerome Lilibeth JURAEZ Primary Care Provider + Encounter Details Date Type Department Care Team (Late st Contact Info) Description 05/31/2022 Telephone Dermatology at [address] [address] Benita Salazar LPN Social History [...] AM EDT TH Visit (TeleHealth) [place] [address] Wyatt Higgins MD [facility] [place] [address] documented as of this encounter Visit Diagnoses Not on filedocumented in this encounter Care Teams Financial Secretary Relationship Specialty Start Date End Date Ruth Munoz, LARRY [address] [place] [address] PCP - General Family Medicine 02/05/19 documented as of this encounter
--- OUTSIDE RECORDS SUMMARY | 2024-09-18 16:09 | XMS_ITS | Encounter Summary ---
Author Organization [facility] [place] [address] Care Team Providers Care Press Offbearer Name Role Phone Ruth Munoz LARRY Primary Care Provider + Encounter Details Date Type Department Care Team (Late st Contact Info) Description 03/24/2022 Refill Dermatology at [address] [phone] Lydia Funes, RN Social History Tobacco Use [...] AM EDT TH Visit (TeleHealth) [place] [address] Wyatt Higgins MD [facility] [place] [address] documented as of this encounter Visit Diagnoses Not on filedocumented in this encounter Care Teams Press Offbearer Relationship Specialty Start Date End Date Ruth Munoz, EXCELLENCE CONSULTANT [address] [place] [address] PCP - General Family Medicine 02/05/19 documented as of this encounter
--- OUTSIDE RECORDS SUMMARY | 2024-09-18 16:09 | XMS_ITS | Encounter Summary ---
Author Organization [facility] [place] [address] Care Team Providers Care Hereditary Cancer Program Coordinator Name Role Phone Ruth Munoz Lilibeth JUAREZ Primary Care Provider + Reason for Visit * Reason Onset Date Comments Other 06/16/2022 Encounter Details Date Type Department Care Team (Late st Contact Info) Description 06/16/2022 [place] [id number] Wyatt Higgins MD [facility] [place] [address] Other Social History Tobacco Use Types Packs/Day [...] 06/16/2022 12:18 PM EDT Copied from CRM #[id number]. Topic: Specialty Dept CRMs - Medication Issues [...] with the medication: Patient bought OTC bottle (sundown brand) instead of filling prescription, as insurance [...] AM EDT TH Visit (TeleHealth) [place] [address] Wyatt Higgins MD [facility] [address] documented as of this encounter Visit Diagnoses Not on filedocumented in this encounter Care Teams Hereditary Cancer Program Coordinator Relationship Specialty Start Date End Date Ruth Munoz APRN [address] [place] [address] PCP - General Family Medicine 02/05/19 documented as of this encounter
--- OUTSIDE RECORDS SUMMARY | 2024-09-18 16:09 | XMS_ITS | Encounter Summary ---
[place] [address] Care Team Providers Care Camp Attendant Name Role Phone Ruth Munoz LARRY Primary Care Provider + Reason for Visit * Reason Comments Specialty Refill Management Encounter Details Date Type Department Care Team (Late st Contact Info) Description 02/15/2022 Specialty [place] [address] Sravanthi Cardoza RPH Social History Tobacco Use [...] beneficiary Provider: plan sponsor pharmacist [facility] Follow-up Time Spent: 1-15 min Method of Contact: by telephone Cognitive Ability: good Cognitive Impairment Status Verified this Year: no Allergies and Drug intolerance: No Known Allergies Medication Reconciliation Discrepancies (compared to [facility] med list) -none Specialty Pharmacy Refill Questionnaire [...] at the appointment and that [facility] is providing recommendations (summary located at top of note) for provider review and follow up. Sravanthi Cardoza RPH 02/15/22 1:44 PM documented in this encounter Plan of Treatment Upcoming Encounters Date Type Department Care Team (Late st Contact Info) Description 02/19/2025 9:00 AM EDT TH Visit (TeleHealth) [place] [address] Wyatt Higgins MD [facility] [place] [address] documented as of this encounter Visit Diagnoses Not on filedocumented in this encounter Care Teams Camp Attendant Relationship Specialty Start Date End Date Ruth Munoz, ARTICULATION OFFICER [address] [place] [address] PCP - General Family Medicine 02/05/19 documented as of this encounter
--- OUTSIDE RECORDS SUMMARY | 2024-09-18 16:09 | XMS_ITS | Encounter Summary ---
[place] [address] Care Team Providers Care Director Of Scientific Research Name Role Phone Ruth Munoz Lilibeth JUAREZ Primary Care Provider + Reason for Visit * Reason Comments Prior Authorization Enbrel Sureclick 50m g/mL SOAJ Encounter Details Date Type Department Care Team (Late st Contact Info) Description 05/13/2022 Specialty [place] [address] Louis Baeza, [facility] Social History Tobacco Use Types [...] Patient Address: [address] [facility] [address] (home) Medication Name: ENBREL SURECLICK 50 MG/ML (1 ML) SUBCUTANEOUS PEN INJECTOR Medication ID: Subscriber Insurance: [place] Medicaid Subscriber Insurance Comment: Fax: Physician: TERRANCE [...] Louis Baeza - 05/13/2022 11:07 AM EDT [facility], Prior Authorization Approval Medication Name: ENBREL SURECLICK 50 MG/ML (1 ML) SUBCUTANEOUS PEN INJECTOR Medication ID: Approval Dates: 05/13/2022 to 08/13/2022 Insurance requirements/notes: None Other Notes: None Case/Reference #: [id number] Approval notification Received via: Fax Copay: $3.00 Copay assistance: None Copay Notes: Insurance mandated Pharmacy: [facility] Specialty Pharmacy: Yes Pharmacy staff will be reaching out to the patient to inform them of their medication's [facility]. If applicable, a pharmacist will speak with the patient to offer our specialty pharmacy services and to arrange delivery of their medication. Louis Baeza 05/13/22 12:24 PM documented in this encounter Plan of Treatment Upcoming Encounters Date Type Department Care Team (Late st Contact Info) Description 02/19/2025 9:00 AM EDT TH Visit (TeleHealth) [place] [address] Wyatt Higgins MD [facility] [place] [address] documented as of this encounter Visit Diagnoses Not on filedocumented in this encounter Care Teams Director Of Scientific Research Relationship Specialty Start Date End Date Ruth Munoz APRN [address] [place] [address] PCP - General Family Medicine 02/05/19 documented as of this encounter
--- OUTSIDE RECORDS SUMMARY | 2024-09-18 16:09 | XMS_ITS | Encounter Summary ---
[place] [address] Care Team Providers Care Financial Services Rep Name Role Phone Ruth Munoz LARRY Primary Care Provider + Reason for Visit * Reason Comments Specialty Refill Management Encounter Details Date Type Department Care Team (Late st Contact Info) Description 03/09/2022 Specialty [place] [address] Sravanthi Cardoza RPH Social History Tobacco Use [...] Known Allergies Medication Reconciliation Discrepancies (compared to [facility] med list) No Specialty Pharmacy Refill Questionnaire [...] AM EDT TH Visit (TeleHealth) [place] [address] Wyatt Higgins MD [facility] [place] [address] documented as of this encounter Visit Diagnoses Not on filedocumented in this encounter Care Teams Financial Services Rep Relationship Specialty Start Date End Date Ruth Munoz APRN [address] [place] [address] PCP - General Family Medicine 02/05/19 documented as of this encounter
--- OUTSIDE RECORDS SUMMARY | 2024-09-18 16:09 | XMS_ITS | Encounter Summary ---
Author Organization [facility] [place] [address] Care Team Providers Care Hedge Fund Trader Name Role Phone MunozRuth jerome Lilibeth JUAREZ Primary Care Provider + Encounter Details Date Type Department Care Team (Late st Contact Info) Description 08/27/2021 Refill Dermatology at [address] [address] Benita Salazar LPN Social History [...] AM EDT TH Visit (TeleHealth) [place] [address] Wyatt Higgins MD [facility] [place] [place] [address] documented as of this encounter Visit Diagnoses Not on filedocumented in this encounter Care Teams Hedge Fund Trader Relationship Specialty Start Date End Date Ruth Munoz APRN [address] [place] [address] PCP - General Family Medicine 02/05/19 documented as of this encounter
--- OUTSIDE RECORDS SUMMARY | 2024-09-18 16:09 | XMS_ITS | Encounter Summary ---
Author Organization [facility] [place] [address] Care Team Providers Care Warpman Name Role Phone Ruth Mnuoz Lilibeth JUAREZ Primary Care Provider + Encounter Details Date Type Department Care Team (Late st Contact Info) Description 08/05/2021 9:30 AM EDT - 08/05/2021 10:15 AM EDT Surgery [place] [address] Anam Stuart MD [facility] [place] [address] COLONOSCOPY, DIAGNOSTIC (WRVU 3.26) Social History Tobacco [...] to be checked. Monday-Monday Same Day Endo [phone]-[phone] Otherwise contact [phone] and ask to speak to the manager supply environmental compliance specialist Follow up care is a florence [...] mouth nightly. UNABLE TO FIND Med Name: [place] vitamins take one tablet by mouth twice [...] 90 tablet 3 05/31/2021 06/01/2022 Sod Phos [place]-Sod Phos Dibasic (OsmoPrep) 1.5 gram TabletIndications:Ad enomatous [...] complication. Informed Consent signed by patient (or sales representative sales manager). documented in this encounter Plan of Treatment Upcoming Encounters Date Type Department Care Team (Late st Contact Info) Description 02/19/2025 9:00 AM EDT TH Visit (TeleHealth) [place] [address] Wyatt Higgins MD [facility] [place] [address] documented as of this encounter Procedures Procedure Name Priority Date/Time Associated Diagnosis Comments POCT GLUCOSE Routine 08/05/2021 12:05 PM EDT POCT FINGERSTICK GLUCOSE Routine 08/05/2021 12:04 PM EDT Colonoscopy, Diagnostic (35066) 08/05/2021 11:12 AM EDT screening hx of hyperplastic and tubular polyps COLONOSCOPY Routine 08/05/2021 11:09 AM EDT POCT GLUCOSE Routine 08/05/2021 10:10 AM EDT documented in this encounter Results * POCT Glucose (08/05/2021 12:05 PM EDT) Glucose, POC 104 65 - 199 mg/dL [facility] Comment: Supplemental ranges: <140 mg/dL before meals <180 mg/dL all other times of the day Blood 08/05/2021 12:0 5 PM EDT 08/04/2021 12:00 PM EDT Anam Stuart MD POINT OF CARE FABIENNE T ORDERABLES [facility] [place] [address] * POCT Fingerstick Glucose (08/05/2021 12:04 PM EDT) Glucose, POC 104 60 - 199 mg/dl 08/05/2021 12:0 4 PM EDT Anam Stuart MD POINT OF CARE FABIENNE T ORDERABLES * COLONOSCOPY (08/05/2021 11:09 AM EDT) COLONOSCOPY [facility] Endoscopy Procedure Date: 08/05/2021 11:09 AM ? Patient Name: Martha Benoit ? N: [id number] ? Date of : 1965 ? Age: 55 ? Order #: [id number] ? Instrument Name: [id number] ? Procedure: ? Colonoscopy Indications: ? Screening in patient at increased ? risk: Family history of 1st-degree ? relative with colorectal cancer ? before age 60 years Patient Profile: ? This is a 55 year old female. Providers: ? Anam Stuart MD, Sung Porter ? BRENDAN Aquino, Liza Mccarty MD: ?Ruth Munoz [facility]: ? Monitored Anesthesia Care Complications: ? No [...] preparation was evaluated using ? the BBPS ([place] Bowel Preparation ? Scale) with scores of: [...] Ruth Mcelroy Alexander JUAREZ GENERAL SURGICAL ORDERABLES PROVATION * POCT Glucose (08/05/2021 10:10 AM EDT) Glucose, POC 118 65 - 199 mg/dL [facility] Comment: Supplemental ranges: <140 mg/dL before meals <180 mg/dL all other times of the day Blood 08/05/2021 10:1 0 AM EDT 08/04/2021 12:00 PM EDT Anam Stuart MD POINT OF CARE FABIENNE T ORDERABLES Performing Organization Address City/[facility]/ZIP Co de Phone Number [facility] [place] [address] documented in this encounter Visit Diagnoses Not [...] CRNA) documented in this encounter Care Teams Warpman Relationship Specialty Start Date End Date Ruth Munoz, COORDINATE MEASURING MACHINE OPERATOR [address] [place] [address] PCP - General Family Medicine 02/05/19 documented as of this encounter
--- OUTSIDE RECORDS SUMMARY | 2024-09-18 16:09 | XMS_ITS | Encounter Summary ---
Author Organization [facility] [place] [address] Care Team Providers Care Road Engineer Name Role Phone MunozRuth jerome Lilibeth JUAREZ Primary Care Provider + Encounter Details Date Type Department Care Team (Late st Contact Info) Description 04/05/2022 Orders [place] [address] Christiana Jewell CLIENT RELATION SPECIALIST [facility] [place] [place] [address] Status post bariatric surgery; Disorder of iron [...] AM EDT TH Visit (TeleHealth) [place] [address] Wyatt Higgins MD [facility] [place] [place] [address] Scheduled Orders Name Type Priority Associated Diagnoses [...] B1, whole blood (06/07/2022 11:47 AM EDT) [facility] Vit B1 Lvl Wb (FEBRUARY) 250(H) 70 - 180 nmol/L [facility] Comment: ADDITIONAL INFORMATION This test was developed and its performance characteristics determined by [facility] in a manner consistent with CLIA requirements. This test has not been cleared or approved by the U.S. Food and Drug Administration. Test Performed by: [facility] - [address] [address] Gun Synchronizer: Jose Sands M.D. Ph.D.; CLIA# [id number] Blood 06/07/2022 11:4 7 AM EDT 06/07/2022 4:34 PM EDT Narrative Resulting Agency Comment Spec In Lab Christiana Jewell APRN LAB SEND OUT ORDER AMY Performing Organization Address City/[facility]/ZIP Co de Phone Number [facility] [place] [address] * PTH (06/07/2022 11:47 AM EDT) Parathyroid Hormone 58 15 - 65 pg/mL [facility] Blood 06/07/2022 11:4 7 AM EDT 06/07/2022 11:54 AM EDT Narrative Resulting Agency Comment Spec In Lab Christiana E [place] CLIENT RELATION SPECIALIST CHEMISTRY ORDERABL ES Performing Organization Address [facility] Co de Phone Number [facility] [place] [address] * Folate, serum (06/07/2022 11:47 AM EDT) Folate >20.0 4.8 - 24.2 ng/mL [facility] Blood 06/07/2022 11:4 7 AM EDT 06/07/2022 11:54 AM EDT Narrative Resulting Agency Comment Spec In Lab Christiana E [place] CLIENT RELATION SPECIALIST CHEMISTRY ORDERABL ES Performing Organization Address [facility] Co de Phone Number [facility] [place] [address] * Ferritin (06/07/2022 11:47 AM EDT) Ferritin 82 30 - 400 ng/mL [facility] Comment: Pediatric reference ranges not verified at [facility], interpret with caution. Reference ranges for females greater than 50 years of age approach values for men, i.e., 30-400 ng/mL. Blood 06/07/2022 11:4 7 AM EDT 06/07/2022 11:54 AM EDT Narrative Resulting Agency Comment Spec In Lab Christiana E [place] CLIENT RELATION SPECIALIST CHEMISTRY ORDERABL ES Performing Organization Address City/[facility]/ZIP Co de Phone Number [facility] [place] [address] documented in this encounter Visit Diagnoses Diagnosis Status post bariatric surgery Bariatric surgery status Disorder of iron metabolism Other disorders of iron metabolism documented in this encounter Care Teams Road Engineer Relationship Specialty Start Date End Date Ruth Munoz, CLIENT RELATION SPECIALIST [address] [place] [address] PCP - General Family Medicine 02/05/19 documented as of this encounter
--- OUTSIDE RECORDS SUMMARY | 2024-09-18 16:09 | XMS_ITS | Encounter Summary ---
[place] [address] Care Team Providers Care Delinquency Prevention Social Worker Name Role Phone Ruth Munoz Lilibteh JUAREZ Primary Care Provider + Reason for Visit * Reason Comments Prior Authorization Cosentyx Sensoready ( 300m 150 SOAJ ) Encounter Details Date Type Department Care Team (Late st Contact Info) Description 08/25/2021 Specialty [place] [address] Louis Baeza, [facility] Social History Tobacco Use Types Packs/Day Years [...] Patient Address: [address] [facility] [address] (home) Medication Name: COSENTYX PEN 300 MG/2 PENS (150 MG/ML) SUBCUTANEOUS Medication ID: Subscriber Insurance: [place] Medicaid Subscriber Insurance Comment: Fax: Physician: TERRANCE LYNN Physician Comment: Sent Via: [facility] Kessler: [id number] Ref/Case/PA#: Medication Strength Frequency Requested: Cosentyx Sensoready [...] requirements/notes: None Other Notes: None Case/Reference #: [id number] Approval notification Received via: Fax Copay: $3.00 Copay assistance: None Copay Notes: Insurance mandated Pharmacy: [facility] Specialty Pharmacy: Yes Pharmacy staff will be reaching out to the patient to inform them of their medication's approval [facility] insurance. If applicable, a pharmacist will speak with the patient to offer our specialty pharmacy services and to arrange delivery of their medication. Louis Baeza 08/26/21 8:55 AM documented in this encounter Plan of Treatment Upcoming Encounters Date Type Department Care Team (Late st Contact Info) Description 02/19/2025 9:00 AM EDT TH Visit (TeleHealth) [place] [address] Wyatt Higgins MD [facility] [place] [address] documented as of this encounter Visit Diagnoses Not on filedocumented in this encounter Care Teams Delinquency Prevention Social Worker Relationship Specialty Start Date End Date Ruth Munoz APRN [address] [place] [address] PCP - General Family Medicine 02/05/19 documented as of this encounter
--- OUTSIDE RECORDS SUMMARY | 2024-09-18 16:09 | XMS_ITS | Encounter Summary ---
[place] [address] Care Team Providers Care Lens And Frames Prescription Clerk Name Role Phone Alexander Ruthantony Mcelroy APRN Primary Care Provider + Encounter Details Date Type Department Care Team (Late st Contact Info) Description 04/05/2022 [place] [phone] Haritha Conley Social History Tobacco Use Types [...] AM EDT TH Visit (TeleHealth) [place] [address] Wyatt Higgins MD [facility] [place] [place] [address] documented as of this encounter Visit Diagnoses Not on filedocumented in this encounter Care Teams Lens And Frames Prescription Clerk Relationship Specialty Start Date End Date Ruth Munoz, IT SYSTEMS ENGINEER [address] [place] [address] PCP - General Family Medicine 02/05/19 documented as of this encounter
--- OUTSIDE RECORDS SUMMARY | 2024-09-18 16:09 | XMS_ITS | Encounter Summary ---
[place] [address] Care Team Providers Care Nuclear Power Reactor Operator Name Role Phone Ruth Munoz LARRY Primary Care Provider + Reason for Visit * Reason Comments Medication Management Encounter Details Date Type Department Care Team (Late st Contact Info) Description 05/12/2022 Specialty [place] [address] Nura Lozano Aline Social History Tobacco Use [...] Management (CMM) Martha Benoit [address] [facility] [address] Telephone Information: Work Phone Not on file. [...] were made at the appointment and that [facility] isproviding recommendations (summary located at top of note) for provider review and follow up. Nura Lozano RPH 05/12/22 4:06 PM documented in this encounter Plan of Treatment Upcoming Encounters Date Type Department Care Team (Late st Contact Info) Description 02/19/2025 9:00 AM EDT TH Visit (TeleHealth) [place] [address] Wyatt Higgins MD [facility] [place] [address] documented as of this encounter Visit Diagnoses Not on filedocumented in this encounter Care Teams Nuclear Power Reactor Operator Relationship Specialty Start Date End Date Ruth Munoz APRN [address] [place] [address] PCP - General Family Medicine 02/05/19 documented as of this encounter
--- OUTSIDE RECORDS SUMMARY | 2024-09-18 16:09 | XMS_ITS | Encounter Summary ---
[place] [address] Care Team Providers Care Community Center Coordinator Name Role Phone Ruth Munoz LARRY Primary Care Provider + Encounter Details Date Type Department Care Team (Late st Contact Info) Description 08/02/2022 Specialty [place] [address] Louis Baeza, [facility] Social History Tobacco Use Types Packs/Day Years [...] Known Allergies Medication Reconciliation Discrepancies (compared to [facility] med list) No Specialty Pharmacy [...] TH Visit (TeleHealth) [place] [address] Wyatt Higgins MD [facility] [place] [address] documented as of this encounter Visit Diagnoses Not on filedocumented in this encounter Care Teams Community Center Coordinator Relationship Specialty Start Date End Date Ruth Munoz APRN [address] [place] [address] PCP - General Family Medicine 02/05/19 documented as of this encounter
--- OUTSIDE RECORDS SUMMARY | 2024-09-18 16:09 | XMS_ITS | Encounter Summary ---
[place] [address] Care Team Providers Care Sod Stripper Name Role Phone MunozRuth jerome Lilibeth JUAREZ Primary Care Provider + Encounter Details Date Type Department Care Team (Late st Contact Info) Description 07/25/2022 Tele[place] [address] Shari Keller RN Social History Tobacco Use [...] AM EDT TH Visit (TeleHealth) [place] [address] Wyatt Higgins MD [facility] [place] [address] documented as of this encounter Visit Diagnoses Not on filedocumented in this encounter Care Teams Sod Stripper Relationship Specialty Start Date End Date Ruth Munoz APRN [address] [place] [address] PCP - General Family Medicine 02/05/19 documented as of this encounter
--- OUTSIDE RECORDS SUMMARY | 2024-09-18 16:09 | XMS_ITS | Encounter Summary ---
Author Organization [facility] [place] [address] Care Team Providers Care Director Television Name Role Phone Ruth Munoz Lilibeth JUAREZ Primary Care Provider + Reason for Visit * Reason Onset Date Comments Other 04/05/2022 Encounter Details Date Type Department Care Team (Late st Contact Info) Description 04/05/2022 Telephone [place] [address] Wyatt Higgins MD [facility] [place] [address] Other Social History Tobacco Use Types Packs/Day [...] - 04/05/2022 10:32 AM EDT Copied from [facility] #[id number]. Topic: Specialty Dept CRMs - Generic Call [...] EDT TH Visit (TeleHealth) [place] [address] Wyatt Higgins MD [facility] [place] [address] documented as of this encounter Visit Diagnoses Not on filedocumented in this encounter Care Teams Director Television Relationship Specialty Start Date End Date Ruth Munoz APRN [address] [place] [address] PCP - General Family Medicine 02/05/19 documented as of this encounter
--- OUTSIDE RECORDS SUMMARY | 2024-09-18 16:09 | XMS_ITS | Encounter Summary ---
[place] [address] Care Team Providers Care Project Officer Name Role Phone Ruth Munoz Lilibeth JUAREZ Primary Care Provider + Reason for Visit * Reason Onset Date Comments Medication Refill 05/13/2022 Encounter Details Date Type Department Care Team (Late st Contact Info) Description 05/13/2022 [place] [address] Romina Herbert RPH Social History Tobacco Use [...] TH Visit (TeleHealth) [place] [address] Wyatt Higgins MD [facility] [place] [address] documented as of this encounter Visit Diagnoses Not on filedocumented in this encounter Care Teams Project Officer Relationship Specialty Start Date End Date Ruth Munoz, PENSION AGENT [address] [place] [address] PCP - General Family Medicine 02/05/19 documented as of this encounter
--- OUTSIDE RECORDS SUMMARY | 2024-09-18 16:09 | XMS_ITS | Encounter Summary ---
[place] [address] Care Team Providers Care Gleason Gear Generator Name Role Phone Ruth Munoz Lilibeth JUAREZ Primary Care Provider + Reason for Visit * Reason Comments Medication Management Encounter Details Date Type Department Care Team (Late st Contact Info) Description 05/13/2022 Specialty [place] [address] Romina Herbert RPH Social History Tobacco Use [...] AM EDT TH Visit (TeleHealth) [place] [address] Wyatt Higgins MD [facility] [place] [address] documented as of this encounter Visit Diagnoses Not on filedocumented in this encounter Care Teams Gleason Gear Generator Relationship Specialty Start Date End Date Ruth Munoz, FOAM FABRICATOR [address] [place] [address] PCP - General Family Medicine 02/05/19 documented as of this encounter
--- OUTSIDE RECORDS SUMMARY | 2024-09-18 16:09 | XMS_ITS | Encounter Summary ---
Author Organization [facility] [place] [address] Care Team Providers Care Cafe Associate Name Role Phone MunozRuth jerome Lilibeth JUAREZ Primary Care Provider + Encounter Details Date Type Department Care Team (Late st Contact Info) Description 08/05/2021 11:12 AM EDT Anesthesia [place] [address] Kvng Lind MD [facility] DR ANESTHESI[place] [address] Anesthesia Record Procedure Summary Procedure Name Responsible [...] utility RA#[id number]) 01/25/16 1448 by Johanne Stuart POLICY SERVICES REPRESENTATIVE 06/20/22 1715 by Tyrell Garcia Incision 06/29/17; 1622; abdomen; 06/20/22 (LDA cleanup utility RA#[id number]); 1715 (LDA cleanup utility RA#[id number]) 06/29/17 1622 by Padma Zhou RN 06/20/22 1715 by Tyrell Garcia (RETIRED) Peripheral IV Line - Single Lumen 08/05/21; 1010; dorsal arch vein (top of hand), right; [id number] catheter system; Anatomical Landmarks; 22 gauge; len [...] Procedure Summary Date: 08/05/21 Room / Location: [facility] ENDO 3 / [facility] ENDOSCOPY Anesthesia Start: 1112 Anesthesia Stop: 1143 Procedure: COLONOSCOPY, DIAGNOSTIC (N/A Trunk) Diagnosis: (screening) (hx of hyperplastic and tubular polyps) Surgeons: Anam Stuart MD Responsible Provider: Kvng Lind MD Anesthesia Type: MAC ASA Status: 3 All Anesthesia Providers: Anesthesiologist: Kvng Lind MD TRUCK LEASING MANAGER: Lisa Raphael CRNA Vitals Value Taken Time BP 119/65 08/05/21 1220 Temp 36.3 ??C (97.4 ??F) 08/05/21 1148 Pulse 83 08/05/21 1200 Resp 18 08/05/21 1215 SpO2 96 % 08/05/21 1222 Pain Level 0 08/05/21 1210 Vitals shown include unvalidated device data. Patient Location: PACU/[facility] Level of Consciousness: Awake and Alert [...] Julio Cesar Wright suggested lumbar puncture in [place] -if high protein, may need IVIG therapy or try two days of high dose steroid therapy ??? Preoperative Class III obesity BMI 43, S/P gastric bypass 01/04/16 Bariatric Surgery Program 1. Attended Introduction to the [facility] [place] seminar, a comprehensive two hour meeting that provides a program overview, education on bariatric surgeries offered at [facility], risks andbenefits, as well as patient expectations and follow up: 08/05/14. [facility]SP Educational seminars viewed: 3. Grades on post-testin-100%. The [facility]SP Educational Handbook is provided at preoperative visit #1. 2. Pre-operative programmatic evaluations required: PCP evaluation and letter of support to proceedwith surgery, [facility]SP labwork (can be done on day of visit #1) and psychological evaluation- minimum of2 visits. 3. Bariatric Surgery Program evaluations with RD and CHEESE PRODUCTION SUPERVISOR: 11/03/15 4. Weight history: 198 pounds on 08/25/04, 207 pounds on 03/20/09, 249 pounds on 07/01/14, 253 pounds on 02/20/15 5. Gallbladder status: 6. Insurer specific requirements: [place] medicaid- 3 months of supervised counseling 7. BSP Team meeting discussion: no Post surgery course: 1. Admitted to [facility] on 01/24/16 with nausea and vomiting, failure to progress diet.Transfer [place] [facility] [place] ??? Vitamin D deficiency Lab [...] ureteral stone extraction Jul - [facility] - [place] ??? Chronic foot pain-s/p heel spur surgeries [...] 17.11) performed by James Rosenthal MD at [facility] MAIN OR ??? PRO LAP GASTRIC BYPASS/BRADY-EN-Y N/A 01/04/2016 @LAPAROSCOPIC GASTROPLASTY, performed by Jose Mai MD at [facility] MAIN OR ??? PRO UPPER GI ENDOSCOPY, BIOPSY 11/16/2011 EGD WITH BIOPSY performed by ALISA RICHARDS at [facility] ENDOSCOPY ??? PRO UPPER GI ENDOSCOPY, DIAGNOSTIC N/A 11/04/2015 EGD, UPPER GI ENDOSCOPY performed by Kisha Doss MD at [facility] ENDOSCOPY ??? PRO UPPER GI ENDOSCOPY, DIAGNOSTIC N/A 01/04/2016 ENDOSCOPY, UPPER GI, DIAGNOSTIC, WITH OR WITHOUT SPECIMENS performed by Jose Mai MD at [facility] MAIN OR ??? TUBAL LIGATION ??? UPPER GI ENDOSCOPY, EXAM 11/16/2011 UPPER GI ENDOSCOPY performed by ALISA RICHARDS at [facility] ENDOSCOPY Social History Tobacco Use ??? [...] risks discussed with patient. Plan discussed with TRUCK LEASING MANAGER. Anesthesia Screening documented in this encounter Plan of Treatment Upcoming Encounters Date Type Department Care Team (Late st Contact Info) Description 02/19/2025 9:00 AM EDT TH Visit (TeleHealth) [place] [phone] Wyatt Higgins MD [facility] [address] [place] [address] documented as of this encounter Visit Diagnoses [...] /hr documented in this encounter Care Teams Cafe Associate Relationship Specialty Start Date End Date Ruth Munoz, POLICY SERVICES REPRESENTATIVE [address] [place] [address] PCP - General Family Medicine 02/05/19 documented as of this encounter
--- OUTSIDE RECORDS SUMMARY | 2024-09-18 16:09 | XMS_ITS | Encounter Summary ---
[place] [address] Care Team Providers Care Gymnastics Instructor Name Role Phone Ruth Munoz LARRY Primary Care Provider + Reason for Visit * Reason Comments Medication Refill Encounter Details Date Type Department Care Team (Late st Contact Info) Description 08/25/2021 Specialty [place] [address] Filemon Sheth RPH Social History Tobacco Use [...] Known Allergies Medication Reconciliation Discrepancies (compared to [facility] med list) No Specialty Pharmacy [...] AM EDT TH Visit (TeleHealth) [place] [address] Wyatt Higgins MD [facility] [place] [address] documented as of this encounter Visit Diagnoses Not on filedocumented in this encounter Care Teams Gymnastics Instructor Relationship Specialty Start Date End Date Ruth Munoz APRN [address] [place] [address] PCP - General Family Medicine 02/05/19 documented as of this encounter
--- OUTSIDE RECORDS SUMMARY | 2024-09-18 16:09 | XMS_ITS | Encounter Summary ---
Author Organization [facility] [place] [address] Care Team Providers Care Aba Therapist Name Role Phone MunozRuth jerome Lilibeth JUAREZ Primary Care Provider + Reason for Visit * Reason Comments Medication Refill Encounter Details Date Type Department Care Team (Late st Contact Info) Description 01/15/2022 Refill [place] [address] Judith Reinoso MD [facility] [place] [address] Social History Tobacco Use Types Packs/Day Years [...] AM EDT TH Visit (TeleHealth) [place] [address] Wyatt Higgins MD [facility] [place] [address] documented as of this encounter Visit Diagnoses Not on filedocumented in this encounter Care Teams Aba Therapist Relationship Specialty Start Date End Date Ruth Munoz APRN [address] [place] [address] PCP - General Family Medicine 02/05/19 documented as of this encounter
--- OUTSIDE RECORDS SUMMARY | 2024-09-18 16:09 | XMS_ITS | Encounter Summary ---
Author Organization [facility] [place] [address] Care Team Providers Care Brush Cleaner Name Role Phone Ruth Munoz Lilibeth JUAREZ Primary Care Provider + Reason for Visit * Reason Onset Date Comments Medication Refill 07/26/2022 Encounter Details Date Type Department Care Team (Late st Contact Info) Description 07/26/2022 Telephone [place] [phone] Shari Keller die repair machinist Refill Social History Tobacco Use Types Packs/Day [...] AM EDT TH Visit (TeleHealth) [place] [phone] Wyatt Higgins MD [facility] [place] [address] documented as of this encounter Results * TSH (02/20/2023 1:02 PM EDT) Thyroid Stimulating Hormone 1.80 0.27 - 4.20 mcIU/mL [facility] Comment: Reference Interval (mcIU/mL): Females: ??First Trimester: 0.23-3.88 ??Second Trimester: 0.22-3.90 ??Third Trimester: 0.44-4.66 Blood 02/20/2023 1:02 PM EDT 02/20/2023 1:10 PM EDT Narrative Resulting Agency Comment Spec In Lab Judith Reinoso MD CHEMISTRY ORDERAB LES [facility] [place] [address] documented in this encounter Visit Diagnoses Diagnosis Hypothyroidism, acquired Unspecified hypothyroidism documented in this encounter Care Teams Brush Cleaner Relationship Specialty Start Date End Date Ruth Munoz, MANNEQUIN WIG MAKER [address] [place] [address] PCP - General Family Medicine 02/05/19 documented as of this encounter
--- OUTSIDE RECORDS SUMMARY | 2024-09-18 16:09 | XMS_ITS | Encounter Summary ---
[place] [address] Care Team Providers Care Heating Fixture Tender Name Role Phone Ruth Munoz LARRY Primary Care Provider + Reason for Visit * Reason Comments Medication Management Specialty Refill Management Encounter Details Date Type Department Care Team (Late st Contact Info) Description 09/17/2021 Specialty [place] [address] Oc Archer [facility] Social History Tobacco Use Types Packs/Day [...] this encounter Progress Notes * Oc Archer [facility] - 09/17/2021 10:42 AM EST Clinical [...] Medication Reconciliation Discrepancies (compared to [facility] med list) No Specialty Pharmacy Refill Questionnaire [...] AM EDT TH Visit (TeleHealth) [place] [address] Wyatt Higgins MD [facility] [place] [address] documented as of this encounter Visit Diagnoses Not on filedocumented in this encounter Care Teams Heating Fixture Tender Relationship Specialty Start Date End Date Ruth Munoz APRN [address] [place] [address] PCP - General Family Medicine 02/05/19 documented as of this encounter
--- OUTSIDE RECORDS SUMMARY | 2024-09-18 16:09 | XMS_ITS | Encounter Summary ---
Author Organization [facility] [place] [address] Care Team Providers Care Director Of Global Marketing Name Role Phone Ruth Munoz Lilibeth JUAREZ Primary Care Provider + Encounter Details Date Type Department Care Team (Late st Contact Info) Description 03/24/2022 Telephone Dermatology at [address] [address] Lydia Funes RN Social History [...] for her and they were [facility] [place] her request. Patient stated that she understood and stated no questions or concerns at this time. documented in this encounter Plan of Treatment Upcoming Encounters Date Type Department Care Team (Late st Contact Info) Description 02/19/2025 9:00 AM EDT TH Visit (TeleHealth) [place] [address] Wyatt Higgins MD [facility] [place] [address] documented as of this encounter Visit Diagnoses Not on filedocumented in this encounter Care Teams Director Of Global Marketing Relationship Specialty Start Date End Date Ruth Munoz APRN [address] [place] [address] PCP - General Family Medicine 02/05/19 documented as of this encounter
--- OUTSIDE RECORDS SUMMARY | 2024-09-18 16:09 | XMS_ITS | Encounter Summary ---
[place] [address] Care Team Providers Care Combination Building Inspector Name Role Phone Ruth Munoz LARRY Primary Care Provider + Reason for Visit * Reason Comments Prior Authorization Cosentyx Sensoready (300mg) 150mg/ml pens Encounter Details Date Type Department Care Team (Late st Contact Info) Description 05/18/2022 Specialty [place] [address] Gertrudis Siddiqi, TIERCE FILLER Social History Tobacco Use Types Packs/Day Years [...] [address] [facility] [address] (home) Medication Name: COSENTYX PEN 300 MG/2 PENS (150 MG/ML) SUBCUTANEOUS Medication ID: [id number] Subscriber Insurance: [place] Medicaid Subscriber Insurance Comment: Fax: Physician: TERRANCE LYNN Physician Comment: Sent Via: [facility] Kessler: [id number] Ref/Case/PA#: Medication Strength Frequency Requested: Cosentyx 300mg/2ml [...] MG/2 PENS (150 MG/ML) SUBCUTANEOUS Medication ID: [id number] Approval Dates: 05/19/2022 to 06/19/2022 Insurance requirements/notes: None Other Notes: None Case/Reference #: [id number] Approval notification Received via: Fax Copay: 3.00 Copay assistance: Copay Notes: Patient has $3.00 co-pay Insurance mandated Pharmacy: [facility]: Yes Pharmacy staff will be reaching out to the patient to inform them of their medication[facility]. If applicable, a pharmacist will speak with the patient to offer our specialty pharmacy services and to arrange delivery of their medication. Gertrudis Siddiqi 05/19/22 11:34 AM documented in this encounter Plan of Treatment Upcoming Encounters Date Type Department Care Team (Late st Contact Info) Description 02/19/2025 9:00 AM EDT TH Visit (TeleHealth) [place] [address] Wyatt Higgins MD [facility] [place] [address] documented as of this encounter Visit Diagnoses Not on filedocumented in this encounter Care Teams Combination Building Inspector Relationship Specialty Start Date End Date Ruth Munoz, SUGGESTION CLERK [address] [place] [address] PCP - General Family Medicine 02/05/19 documented as of this encounter
--- OUTSIDE RECORDS SUMMARY | 2024-09-18 16:09 | XMS_ITS | Encounter Summary ---
[place] [address] Care Team Providers Care Computer Forensics Technician Name Role Phone Ruth Munoz LARRY Primary Care Provider + Reason for Visit * Reason Comments Medication Management Specialty Refill Management Encounter Details Date Type Department Care Team (Late st Contact Info) Description 05/18/2022 Specialty Pharmacy [place] [address] O[facility] Social History Tobacco Use Types [...] this encounter Progress Notes * Oc Archer [facility] - 05/18/2022 3:32 PM EDT Clinical Management [...] Known Allergies Medication Reconciliation Discrepancies (compared to [facility] med list) No Specialty Pharmacy Refill Questionnaire [...] EDT TH Visit (TeleHealth) [place] [address] Wyatt Higgins MD [facility] [place] [address] documented as of this encounter Visit Diagnoses Not on filedocumented in this encounter Care Teams Computer Forensics Technician Relationship Specialty Start Date End Date Ruth Munoz APRN [address] [place] [address] PCP - General Family Medicine 02/05/19 documented as of this encounter
--- OUTSIDE RECORDS SUMMARY | 2024-09-18 16:09 | XMS_ITS | Encounter Summary ---
Author Organization [facility] [address] Care Team Providers Care Radio Control Crane Operator Name Role Phone Ruth Munoz Lilibeth JUAREZ Primary Care Provider + Reason for Visit * Reason Comments Psoriasis Encounter Details Date Type Department Care Team (Late st Contact Info) Description 05/12/2022 2:15 PM EDT Office Visit Dermatology at [address] [place] [address] Galdino Gilliland MD [address], [place] [address] Psoriasis Social History Tobacco Use Types Packs/Day [...] her legs are a big problem despite scientologist use of the Cosentyx. Physical examination confirms [...] AM EDT TH Visit (TeleHealth) [place] [address] Wyatt Higgins MD [facility] [place] [address] documented as of this encounter Visit Diagnoses Diagnosis Psoriasis Other psoriasis documented in this encounter Care Teams Radio Control Crane Operator Relationship Specialty Start Date End Date Ruth Munoz APRN [address] [place] [address] PCP - General Family Medicine 02/05/19 documented as of this encounter
--- OUTSIDE RECORDS SUMMARY | 2024-09-18 16:09 | XMS_ITS | Encounter Summary ---
Author Organization [facility] [place] [address] Care Team Providers Care Sales Performance Manager Name Role Phone Ruth Munoz Lilibeth JUAREZ Primary Care Provider + Encounter Details Date Type Department Care Team (Late st Contact Info) Description 03/23/2022 Telephone Dermatology at [address] [address] Lydia Funes RN Social History [...] feet again. Pt did sent photos through [facility] for Dr. Gilliland to see. Spoke with [...] understood. Will call in the Cyclosporine to [place] [facility]ert in [place] per the patient's request. Pt stated that [...] Visit (TeleHealth) [place] [address] Wyatt Higgins MD [facility] [address] documented as of this encounter Visit Diagnoses Not on filedocumented in this encounter Care Teams Sales Performance Manager Relationship Specialty Start Date End Date Ruth Munoz APRN [address] [place] [address] PCP - General Family Medicine 02/05/19 documented as of this encounter
--- OUTSIDE RECORDS SUMMARY | 2024-09-18 16:09 | XMS_ITS | Encounter Summary ---
[place] [address] Care Team Providers Care Coloring Machine Operator Name Role Phone MunozRuth jerome Lilibeth JUAREZ Primary Care Provider + Reason for Visit * Reason Comments Medication Refill Encounter Details Date Type Department Care Team (Late st Contact Info) Description 04/08/2022 Refill Dermatology at [address] [place] [address] Galdino Gilliland MD [address] [facility], [place] [address] Social History Tobacco Use Types Packs/Day Years [...] AM EDT TH Visit (Tele[place]) [place] [address] Wyatt Higgins MD [facility] [place] [address] documented as of this encounter Visit Diagnoses Not on filedocumented in this encounter Care Teams Coloring Machine Operator Relationship Specialty Start Date End Date Ruth Munoz, LARRY [address] [place] [address] PCP - General Family Medicine 02/05/19 documented as of this encounter
--- OUTSIDE RECORDS SUMMARY | 2024-09-18 16:09 | XMS_ITS | Encounter Summary ---
Author Organization [facility] [place] [address] Care Team Providers Care Business Planner Name Role Phone Ruth Munoz LARRY Primary Care Provider + Encounter Details Date Type Department Care Team (Late st Contact Info) Description 03/24/2022 Refill Dermatology at [address] [phone] Lydia Funes, RN Social History Tobacco Use [...] AM EDT TH Visit (TeleHealth[place] [address] Wyatt Higgins MD [facility] [place] [address] documented as of this encounter Visit Diagnoses Not on filedocumented in this encounter Care Teams Business Planner Relationship Specialty Start Date End Date Ruth Munoz, INBOUND CUSTOMER SERVICE REPRESENTATIVE [address] [place] [address] PCP - General Family Medicine 02/05/19 documented as of this encounter
--- OUTSIDE RECORDS SUMMARY | 2024-09-18 16:09 | XMS_ITS | Encounter Summary ---
[place] [address] Care Team Providers Care Marketing Proposal Specialist Name Role Phone AlexanderAidanantony Mcelroy APRN Primary Care Provider + Encounter Details Date Type Department Care Team (Latest Contact Info) Description 06/07/2022 11:15 AM EDT Laboratory Appointment Lab [address] [place] [id number] Hypothyroidism, acquired; Type 2 diabetes, controlled, with neuropathy; History of gastric bypass; Vitamin D deficiency; Status post bariatric surgery; Disorder of iron metabolism; Type 2 diabetes mellitus with diabetic neuropathy, unspecified whether correction insulin use Social History Tobacco Use Types [...] AM EDT TH Visit (TeleHealth) [place] [address] Wyatt Higgins MD [facility] [place] [address] documented as of this encounter Procedures Procedure [...] (ABNORMAL) Differential, Automated (06/07/2022 11:47 AM EDT) Neutrophil % 43.8 % [facility] Neutrophil Absolute 3.85 1.70 - 6.10 x10(3)/mc L [facility] Lymph % 47.8 % [facility] Lymphocytes Abs 4.2(H) 0.9 - 3.2 x10(3)/mc L [facility] Monocyte % 5.6 % [facility] Monocyte Abs 0.5 0.3 - 0.9 x10(3)/mc L [facility] Eos % 1.7 % [facility] Eosinophils Abs 0.2 0.0 - 0.4 x10(3)/[facility] Basophil % 0.6 % [facility] Baso Absolute 0.0 0.0 - 0.1 x10(3)/[facility] Immature Gran % 0.50 % [facility] Comment: Immature granulocytes(IG's)percentage and absolute count will include metamyelocytes, myelocytes, and promyelocytes. Blood smears from CBCs yielding IG's will be scanned manually for concordance. If this scan disagrees with the automated IG or if promyelocytes are noted, a manual differential will be performed. Immature Gran Absolute 0.04 0.00 - 0.04 x10(3)/[facility] Blood 06/07/2022 11:4 7 AM EDT 06/07/2022 11:54 AM EDT Narrative Resulting Agency Comment Spec In Lab Judith Reinoso MD HEMATOLOGY ORDERA BLES [facility] [place] [address] * Hemogram (06/07/2022 11:47 AM EDT) White Blood Cell 8.8 4.0 - 9.5 x10(3)/[facility] Red Blood Cell 5.05 4.00 - 5.21 x10(6)/[facility] Hemoglobin 14.5 11.7 - 15.5 g/dL [facility] Hematocrit 43.6 35.7 - 45.8 % [facility] Mean Cell Volume 86.3 82.6 - 94.4 fL [facility] Mean Cell Hemoglobin 28.7 27.1 - 32.0 pg [facility] Mean Cell Hemoglobin Concentration 33.3 31.7 - 35.0 g/dL [facility] Platelet 247 145 - 357 x10(3)/[facility] RDW Standard Deviation 41.6 37.0 - 46.0 fL [facility] RDW coefficient of variation 13.3 11.5 - 14.1 % [facility] Mean Platelet Volume 11.2 7.6 - 12.9 fL [facility] NRBC% auto 0.0 % [facility] NRBC Absolute 0.000 0.000 - 0.000 x10(3)/mcL [facility] Blood 06/07/2022 11:4 7 AM EDT 06/07/2022 11:54 AM EDT Narrative Resulting Agency Comment Spec In Lab Judith Reinoso MD HEMATOLOGY ORDERA BLES Performing Organization Address [facility] Co de Phone Number [facility] [place] [address] * Ferritin (06/07/2022 11:47 AM EDT) [facility] Ferritin 82 30 - 400 ng/mL [facility] Comment: Pediatric reference ranges not verified at [facility], interpret with caution. Reference ranges for females greater than 50 years of age approach values for men, i.e., 30-400 ng/mL. Blood 06/07/2022 11:4 7 AM EDT 06/07/2022 11:54 AM EDT Narrative Resulting Agency Comment Spec In Lab Christiana E Kathryn ROUGE PRESSER CHEMISTRY ORDERABL ES Performing Organization Address City/[facility]/ZIP Co de Phone Number [facility] [place] [address] * Folate, serum (06/07/2022 11:47 AM EDT) [facility] Folate >20.0 4.8 - 24.2 ng/mL [facility] Blood 06/07/2022 11:4 7 AM EDT 06/07/2022 11:54 AM EDT Narrative Resulting Agency Comment Spec In Lab Christiana E Kathryn ROUGE PRESSER CHEMISTRY ORDERABL ES Performing Organization Address City/[facility]/ZIP Co de Phone Number [facility] [place] [address] * PTH (06/07/2022 11:47 AM EDT) Pathologist [facility] Parathyroid Hormone 58 15 - 65 pg/mL [facility] Blood 06/07/2022 11:4 7 AM EDT 06/07/2022 11:54 AM EDT Narrative Resulting Agency Comment Spec In Lab Christiana Wood Fanta ROUGE PRESSER CHEMISTRY ORDERABL ES Performing Organization Address [facility] Co de Phone Number [facility] [place] [address] * (ABNORMAL) Vitamin B1, whole blood (06/07/2022 11:47 AM EDT) [facility] Vit B1 Lvl Wb (FEBRUARY) 250(H) 70 - 180 nmol/L [facility] Comment: ADDITIONAL INFORMATION This test was developed and its performance characteristics determined by [facility] in a manner consistent with CLIA requirements. This test has not been cleared or approved by the U.S. Food and Drug Administration. Test Performed by: [facility] [place] [address] Silvering Applicator: Jose Sands M.D. Ph.D.; CLIA# [id number] Blood 06/07/2022 11:4 7 AM EDT 06/07/2022 4:34 PM EDT Narrative Resulting Agency Comment Spec In Lab Christiana Jewell APRN LAB SEND OUT ORDER AMY Performing Organization Address City/[facility]/ZIP Co de Phone Number [facility] [place] [address] * (ABNORMAL) Hemoglobin A1c (06/07/2022 11:47 AM EDT) Pathologist [facility] Hemoglobin A1c 7.5(H) 4.3 - 5.6 % [facility] Mellitus, Diabetes Care 2013; 36: Suppl. 1, S67-60 Estimated Average Glucose 169 mg/dL [facility] [...] into estimated average glucose values. ??Diabetes Care 2008:31(8):1950-6991. Blood 06/07/2022 11:4 7 AM EDT 06/07/2022 11:54 AM EDT Narrative Resulting Agency Comment Spec In Lab Judith Reinoso MD CHEMISTRY ORDERAB LES Performing Organization Address City/State/[facility] Co de Phone Number [facility] [place] [address] * TSH (06/07/2022 11:47 AM EDT) Pathologist [facility] Thyroid Stimulating Hormone 2.07 0.27 - 4.20 mcIU/mL [facility] Comment: Reference Interval (mcIU/mL): Females: ??First Trimester: 0.23-3.88 ??Second Trimester: 0.22-3.90 ??Third Trimester: 0.44-4.66 Blood 06/07/2022 11:4 7 AM EDT 06/07/2022 11:54 AM EDT Narrative Resulting Agency Comment Spec In Lab Judith Reinoso MD CHEMISTRY ORDERAB LES Performing Organization Address [facility] de Phone Number [facility] [place] [address] * (ABNORMAL) Comprehensive metabolic panel (non-fasting) (06/07/2022 11:47 AM EDT) [facility] Glucose 74 65 - 199 mg/dL [facility] Comment:Diabetes: >=200 mg/d L plus symptoms Blood Urea Nitrogen 10 8 - 18 mg/dL [facility] Creatinine 0.40(L) 0.70 - 1.20 mg/dL [facility] Sodium 144 135 - 145 mmol/L [facility] Potassium 3.8 3.5 - 5.0 mmol/L [facility] Comment: Please note: ??Patients with WBC >100,000 may have falsely elevated Potassium levels. ??For accurate Potassium quantification in these patients send serum separator tube (gold top) for subsequent determinations. ??Contact the Clinical Chemistry Laboratory if there are any questions. Chloride 106 98 - 107 mmol/L [facility] Carbon Dioxide 26 22 - 31 mmol/L [facility] Anion Gap 12 5 - 15 mmol/L [facility] Calcium 9.4 8.5 - 10.5 mg/dL [facility] Protein, Total 7.6 6.1 - 8.0 g/dL [facility] Albumin 4.6 3.2 - 5.2 g/dL [facility] Aspartate Aminotransferase 19 0 - 30 unit/L [facility] Alanine Aminotransferase 17 0 - 30 unit/L [facility] Alkaline Phosphatase 94 35 - 105 unit/L [facility] Bilirubin, Total 0.3 0.2 - 1.3 mg/dL [facility] Est Glomerular Filtration Rate 115 >=60 mL/min/1. 73 m?? [facility] Comment: This patient's estimated GFR was [...] [facility] [place] [address] * Lipid Panel (Reflex Direct LDL) (06/07/2022 11:47 AM EDT) Pathologist [facility] Cholesterol, Total 207 mg/dL [facility] Comment: Lower Risk: <200 mg/dL Average Risk: 200-239 mg/dL Higher Risk: >gs=970 mg/dL Triglyceride 163 mg/dL [facility] Comment: Average Risk/Lower Risk: <150 mg/dL Borderline High Risk: 150-199 mg/dL High Risk: 200-499 mg/dL Very High Risk: >dr=133 mg/dL HDL Cholesterol 50 mg/dL [facility] Comment: Males: ?? Higher Risk: <40 mg/dL Females: ?? Higher Risk: <50 mg/dL LDL Cholesterol 124 mg/dL [facility] Comment: Lowest Risk: <100 mg/dL Lower Risk: 100-129 mg/dL Borderline High Risk: 130-159 mg/dL High Risk: 160-189 mg/dL Very High Risk: >km=550 mg/dL Cholesterol/HDL Ratio 4.1 ratio [facility] Lipid Interpretation See Note [facility] Comment: Lipid management should be guided by a patient? s ASCVD risk, goals and preferences. ACC/AHA Guidelines recommend high intensity statin if clinical ASCVD or LDL greater than or equal to 190 mg/dL. http://[employer].Downtown/LJV-EOM-Csnhdxzxg Adults aged 40-75 with LDL 70-189 mg/dL should have their 10 year ASCVD risk estimated with the ACC/AHA ASCVD risk construction cost estimator http://tools.acc.org/SJJFD-Uwhp-Xefjythpa/ Statin should be discussed if risk greater [...] [facility] [place] [address] * Vitamin D, 25-Hydroxy (06/07/2022 11:47 AM EDT) Vitamin D Total 25 OH 36 21 - 100 ng/mL [facility] Vit D Interp Sufficient [facility] Blood 06/07/2022 11:4 7 AM EDT 06/07/2022 11:54 AM EDT Narrative Resulting Agency Comment Spec In Lab Judith Reinoso MD CHEMISTRY ORDERAB LES Performing Organization Address [facility]/ZIP Co de Phone Number [facility] [place] [address] * (ABNORMAL) Vitamin B12 (06/07/2022 11:47 AM EDT) Vitamin B12 >2,000(H) 232 - 1,245 pg/mL [facility] Blood 06/07/2022 11:4 7 AM EDT 06/07/2022 11:54 AM EDT Narrative Resulting Agency Comment Spec In Lab Judith Reinoso MD CHEMISTRY ORDERAB LES Performing Organization Address [facility] Co de Phone Number [facility] [place] [address] * Iron and TIBC (06/07/2022 11:47 AM EDT) Pathologist [facility] Iron 83 30 - 150 mcg/dL [facility] TIBC 305 250 - 450 mcg/dL [facility] Iron Saturation 27 20 - 50 % [facility] Blood 06/07/2022 11:4 7 AM EDT 06/07/2022 11:54 AM EDT Narrative Resulting Agency Comment Spec In Lab Judith Reinoso MD CHEMISTRY ORDERAB LES Performing Organization Address [facility] Co de Phone Number [facility] [place] [address] * U Albumin/Cre Ratio (06/07/2022 11:32 AM EDT) Albumin / Creatinin Ratio, Urine 11 0 - 29 mcg/mg Cr [facility] [...] 2, 357? 362 Albumin, Urine 5.2 mg/L [facility] Creatinine, Urine 48 mg/dL [facility] Urine 06/07/2022 11:3 2 AM EDT 06/07/2022 11:43 AM EDT Narrative Resulting Agency Comment Spec In Lab Judith Reinoso MD URINE ORDERABLES [facility] [place] [id number] documented in this encounter Visit Diagnoses Diagnosis Hypothyroidism, acquired Unspecified hypothyroidism Type 2 diabetes mellitus with diabetic neuropathy, unspecified whether correction insulin use History of gastric bypass Bariatric surgery status Vitamin D deficiency Unspecified vitamin D deficiency Status post bariatric surgery Bariatric surgery status Disorder of iron metabolism Other disorders of iron metabolism documented in this encounter Care Teams Marketing Proposal Specialist Relationship Specialty Start Date End Date Ruth Munoz APRN [address] [place] [address] PCP - General Family Medicine 02/05/19 documented as of this encounter
--- OUTSIDE RECORDS SUMMARY | 2024-09-18 16:09 | XMS_ITS | Encounter Summary ---
[place] [address] Care Team Providers Care Social Media Job Titles Name Role Phone Ruth Munoz Lilibeth JUAREZ Primary Care Provider + Reason for Visit * Reason Comments Prior Authorization Cosentyx Sensoready 150mg/ml SOAJ Encounter Details Date Type Department Care Team (Late st Contact Info) Description 07/11/2022 Specialty [place] [address] Gertrudis Siddiqi, SPACE AND STORAGE CLERK Social History Tobacco Use Types Packs/Day [...] : 1965 Patient Address: [address] [facility] [address] (home) Medication Name: COSENTYX PEN 300 MG/2 PENS (150 MG/ML) SUBCUTANEOUS Medication ID: [id number] Subscriber Insurance: [place] Subscriber Insurance Comment: Fax: Physician: TERRANCE LYNN Physician Comment: Sent Via: [facility] Kessler: [id number] Ref/Case/PA#: Medication Strength Frequency Requested: Cosentyx 150mg/ml, [...] MG/2 PENS (150 MG/ML) SUBCUTANEOUS Medication ID: [id number] Approval Dates: 07/11/2022 to 07/11/2023 Insurance requirements/notes: None Other Notes: None Case/Reference #: [id number] Approval notification Received via: Fax Copay: 3.00 [...] TH Visit (TeleHealth) [place] [address] Wyatt Higgins MD [facility] [place] [address] documented as of this encounter Visit Diagnoses Not on filedocumented in this encounter Care Teams Social Media Job Titles Relationship Specialty Start Date End Date Ruth Munoz, LARRY [address] [place] [address] PCP - General Family Medicine 02/05/19 documented as of this encounter
--- OUTSIDE RECORDS SUMMARY | 2024-09-18 16:10 | XMS_ITS | Encounter Summary ---
Author Organization [facility] [place] [address] Care Team Providers Care Stained Glass Installer Name Role Phone MunozRuth jerome Lilibeth JUAREZ Primary Care Provider + Encounter Details Date Type Department Care Team (Late st Contact Info) Description 05/18/2021 Orders Only [place] [phone] Anam Stuart MD [facility] [place] [address] Adenomatous polyp of colon, unspecified part of [...] Visit (TeleHealth) [place] [phone] Wyatt Higgins MD [facility] [place] [address] documented as of this encounter Visit Diagnoses Diagnosis Adenomatous polyp of colon, unspecified part of colon documented in this encounter Care Teams Stained Glass Installer Relationship Specialty Start Date End Date Ruth Munoz APRN [address] [place] [address] PCP - General Family Medicine 02/05/19 documented as of this encounter
--- OUTSIDE RECORDS SUMMARY | 2024-09-18 16:10 | XMS_ITS | Encounter Summary ---
Author Organization [facility] [place] [address] Care Team Providers Care Almond Roaster Name Role Phone MunozRuth jerome Lilibeth JUAREZ Primary Care Provider + Reason for Visit * Reason Comments Medication Refill Encounter Details Date Type Department Care Team (Late st Contact Info) Description 11/22/2020 Refill [place] [address] Judith Reinoso MD [facility] [place] [address] Social History Tobacco Use Types Packs/Day Years [...] AM EDT TH Visit (TeleHealth) [place] [phone] Wyatt Higgins MD [facility] [place] [address] documented as of this encounter Visit Diagnoses Not on filedocumented in this encounter Care Teams Almond Roaster Relationship Specialty Start Date End Date Ruth Munoz APRN [address] [place] [address] PCP - General Family Medicine 02/05/19 documented as of this encounter
--- OUTSIDE RECORDS SUMMARY | 2024-09-18 16:10 | XMS_ITS | Encounter Summary ---
[place] [address] Care Team Providers Care Herb Grower Name Role Phone Ruth Munoz LARRY Primary Care Provider + Reason for Visit * Reason Comments Medication Refill Encounter Details Date Type Department Care Team (Late st Contact Info) Description 10/29/2020 Specialty [place]acy [place] [address] Taty Lopez RPH Social History Tobacco Use [...] beneficiary Provider: plan sponsor pharmacist Visit Type: [facility] Follow-up Method of Contact: by telephone Cognitive Ability: good Cognitive Impairment Status Verified this Year: no Allergies and Drug intolerance: No Known Allergies Medication Reconciliation Discrepancies (compared to [facility] med list) -none New medications: no New [...] AM EDT TH Visit (TeleHealth) [place] [address] Wyatt Higgins MD [facility] [place] [address] documented as of this encounter Visit Diagnoses Not on filedocumented in this encounter Care Teams Herb Grower Relationship Specialty Start Date End Date Ruth Munoz, GLYCERIN OPERATOR [address] [place] [address] PCP - General Family Medicine 02/05/19 documented as of this encounter
--- OUTSIDE RECORDS SUMMARY | 2024-09-18 16:10 | XMS_ITS | Encounter Summary ---
Author Organization [facility] [place] [address] Care Team Providers Care Pulmonary Fellow Name Role Phone MunozRuth jerome Lilibeth JUAREZ Primary Care Provider + Reason for Visit * Reason Comments Medication Refill Encounter Details Date Type Department Care Team (Late st Contact Info) Description 04/11/2021 Refill [place] [phone] Judith Reinoso MD [facility] [place] [address] Social History Tobacco Use Types Packs/Day Years [...] Visit (TeleHealth) [place] [phone] Wyatt Higgins MD [facility] [place] [address] documented as of this encounter Visit Diagnoses Not on filedocumented in this encounter Care Teams Pulmonary Fellow Relationship Specialty Start Date End Date Ruth Munoz APRN [address] [place] [address] PCP - General Family Medicine 02/05/19 documented as of this encounter
--- OUTSIDE RECORDS SUMMARY | 2024-09-18 16:10 | XMS_ITS | Encounter Summary ---
[place] [address] Care Team Providers Care Acting Section Chief Name Role Phone Ruth Munoz LARRY Primary Care Provider + Reason for Visit * Reason Comments Medication Management Patient Education Encounter Details Date Type Department Care Team (Late st Contact Info) Description 03/12/2021 Specialty [place] [address] Nura Lozano [facility] Social History Tobacco Use Types Packs/Day Years [...] this encounter Progress Notes * Nura Lozano [facility] - 03/12/2021 3:38 PM EDT Clinical Management Plan: Refill Specialty Pharmacy Consultation; Nura Lozano [facility] Comprehensive Medication Management (CMM) Martha Benoit Ms. [...] Known Allergies Medication Reconciliation Discrepancies (compared to [facility] med list) No Specialty Pharmacy [...] AM EDT TH Visit (TeleHealth) [place] [address] Wyatt Higgins MD [facility] [place] [address] documented as of this encounter Visit Diagnoses Not on filedocumented in this encounter Care Teams Acting Section Chief Relationship Specialty Start Date End Date Ruth Munoz APRN [address] [place] [address] PCP - General Family Medicine 02/05/19 documented as of this encounter
--- OUTSIDE RECORDS SUMMARY | 2024-09-18 16:10 | XMS_ITS | Encounter Summary ---
[place] [address] Care Team Providers Care Biodiesel Plant Manager Name Role Phone Ruth Munoz LARRY Primary Care Provider + Reason for Visit * Reason Comments Medication Management Encounter Details Date Type Department Care Team (Late st Contact Info) Description 07/10/2020 Specialty [place] [address] Sravanthi Cardoza RPH Social History Tobacco Use [...] were made at the appointment and that [facility] is providing recommendations (summary located at top of note) for provider review and follow up. Sravanthi Cardoza RPH 07/10/20 9:54 AM documented in this encounter Plan of Treatment Upcoming Encounters Date Type Department Care Team (Late st Contact Info) Description 02/19/2025 9:00 AM EDT TH Visit (TeleHealth) [place] [address] Wyatt Higgins MD [facility] [place] [address] documented as of this encounter Visit Diagnoses Not on filedocumented in this encounter Care Teams Biodiesel Plant Manager Relationship Specialty Start Date End Date Ruth Munoz APRN [address] [place] [address] PCP - General Family Medicine 02/05/19 documented as of this encounter
--- OUTSIDE RECORDS SUMMARY | 2024-09-18 16:10 | XMS_ITS | Encounter Summary ---
Author Organization [facility] [place] [address] Care Team Providers Care Sole Conforming Machine Operator Name Role Phone Ruth Munoz LARRY Primary Care Provider + Reason for Visit * Reason Onset Date Comments Other 08/24/2020 Encounter Details Date Type Department Care Team (Late st Contact Info) Description 08/24/2020 [place] [address] Wyatt Higgins MD [facility] [place] [address] Other Social History Tobacco Use Types Packs/Day [...] 08/24/2020 9:50 AM EST Call Center / Scrap Sorter Message - General Issue Call Provider patient sees in Clinic: Gisela Caller and relationship (if other than patient-full name): self Call back number: [phone] Ok to leave a message: yes Reason for call: Pt states she had an MRI on 05/19/20 at [facility] ordered by a Dr. Vazquez and she also had labs done at [facility] more recently. She has requested both locations send [facility] the results. However they are not currently in the pt chart, she is asking if [facility] can reach out for the results to [facility] and [facility]. Martha was last seen 09/2019 and would like to set up a telehealth appt once the MRI and lab resultshave been received by neuro. Disposition of Call (choose one and remove others): ??? Red Arrow Message Reason red arrow Message: n ??? Routine Message sent to the Nurse: y ??? Routine message sent to [place]: n documented in this encounter Plan of Treatment Upcoming Encounters Date Type Department Care Team (Late st Contact Info) Description 02/19/2025 9:00 AM EDT TH Visit (TeleHealth) [place] [address] Wyatt Higgins MD [facility] [place] [address] documented as of this encounter Visit Diagnoses Not on filedocumented in this encounter Care Teams Sole Conforming Machine Operator Relationship Specialty Start Date End Date Ruth Munoz APRN [address] [place] [address] PCP - General Family Medicine 02/05/19 documented as of this encounter
--- OUTSIDE RECORDS SUMMARY | 2024-09-18 16:10 | XMS_ITS | Encounter Summary ---
[place] [address] Care Team Providers Care Insole Toe Snipping Machine Operator Name Role Phone Ruth Munoz APRN Primary Care Provider + Encounter Details Date Type Department Care Team (Late st Contact Info) Description 05/13/2021 Telephone [place] [phone] Brittnee Cooper Social History Tobacco Use Types [...] - 05/13/2021 12:39 PM EDT Martha Benoit [id number] Diagnosis/Indication: screening hx of hyperplastic and tubular polyps 1. Have you ever had a/an Colonoscopy before? Yes: Date [facility] about 3 years ago If yes, did [...] AM EDT TH Visit (TeleHealth) [place] [address] Wyatt Higgins MD [facility] [place] [address] documented as of this encounter Visit Diagnoses Not on filedocumented in this encounter Care Teams Insole Toe Snipping Machine Operator Relationship Specialty Start Date End Date Ruth Munoz, PRESSURE VESSEL INSPECTOR [address] [place] [address] PCP - General Family Medicine 02/05/19 documented as of this encounter
--- OUTSIDE RECORDS SUMMARY | 2024-09-18 16:10 | XMS_ITS | Encounter Summary ---
[place] [address] Care Team Providers Care Health Aide Name Role Phone Ruth Munoz LARRY Primary Care Provider + Reason for Visit * Reason Comments Specialty Refill Management Encounter Details Date Type Department Care Team (Late st Contact Info) Description 02/17/2021 Specialty [place] [address] Sravanthi Cardoza RPH Social History Tobacco Use [...] Discrepancies (compared to [facility] med list) No Specialty Pharmacy Refill [...] EDT TH Visit (TeleHealth) [place] [address] Wyatt Higgins MD [facility] [place] [address] documented as of this encounter Visit Diagnoses Not on filedocumented in this encounter Care Teams Health Aide Relationship Specialty Start Date End Date Ruth Munoz APRN [address] [place] [address] PCP - General Family Medicine 02/05/19 documented as of this encounter
--- OUTSIDE RECORDS SUMMARY | 2024-09-18 16:10 | XMS_ITS | Encounter Summary ---
[place] [address] Care Team Providers Care Treatment Coordinator Name Role Phone MunozRuth jerome LARRY Primary Care Provider + Encounter Details Date Type Department Care Team (Late st Contact Info) Description 07/03/2020 Telephone [place] [phone] Lauren Fowler RN Social History Tobacco Use [...] TH Visit (TeleHealth) [place] [address] [facility] [place] [place] [address] documented as of this encounter Visit Diagnoses Not on filedocumented in this encounter Care Teams Treatment Coordinator Relationship Specialty Start Date End Date Ruth Munoz, LARRY [address] [place] [address] PCP - General Family Medicine 02/05/19 documented as of this encounter
--- OUTSIDE RECORDS SUMMARY | 2024-09-18 16:10 | XMS_ITS | Encounter Summary ---
[place] [address] Care Team Providers Care Tar Man Name Role Phone Ruth Munoz Lilibeth JUAREZ Primary Care Provider + Encounter Details Date Type Department Care Team (Late st Contact Info) Description 08/05/2020 Refill Dermatology at [place] [address] [place] [address] Galdino Gilliland MD [address] [facility] [place] [address] Social History Tobacco Use Types Packs/Day Years [...] EDT TH Visit (TeleHealth) [place] [phone] Wyatt Higgins MD [facility] [place] [address] documented as of this encounter Visit Diagnoses Not on filedocumented in this encounter Care Teams Tar Man Relationship Specialty Start Date End Date Ruth Munoz APRN [address] [place] [address] PCP - General Family Medicine 02/05/19 documented as of this encounter
--- OUTSIDE RECORDS SUMMARY | 2024-09-18 16:10 | XMS_ITS | Encounter Summary ---
[place] [address] Care Team Providers Care Camp Recreation Specialist Name Role Phone MunozRuth jerome Lilibeth JUAREZ Primary Care Provider + Reason for Visit * Reason Comments Prior Authorization Encounter Details Date Type Department Care Team (Late st Contact Info) Description 08/14/2020 Specialty Pharm[place] [address] Kevin Ugalde, [facility] Social History Tobacco Use Types Packs/Day [...] : 1965 Patient Address: [address] [facility] [address] (home) Medication Name: COSENTYX PEN 150 MG/ML SUBCUTANEOUS Medication ID: [id number] Patient Location: [facility] Patient Location Comment: Subscriber Insurance: [place] Subscriber Insurance Comment: Fax: Physician: TERRANCE LYNN Physician Comment: Sent Via: [facility] [place]: [id number] Ref/Case/PA#: [id number] Medication Strength Frequency Requested: Inject the conents of 2 pens (300 mg) subcutaneously once every 28 days Qty/Day Supply: 12/20 New Start: Renewal Diagnosis & ICD-10 Code: L40.9 Patient Notified: No Submission Notes: None Kevin Ugalde 08/14/20 11:39 AM * Kevin Ugalde - 08/14/2020 11:36 AM EDT [facility], Prior Authorization Approval Medication Name: COSENTYX PEN 150 MG/ML SUBCUTANEOUS Medication ID: [id number] Fillable at [facility]: Yes Approval Dates: 08/14/2020 to 08/14/2021 Insurance requirements/notes: None Other Notes: None Case/Reference #: [id number] Approval notification Received via: Fax Copay: $3.00 Copay assistance: None Copay Notes: Insurance mandated Pharmacy: [facility] Pharmacy staff will be reaching out to the patient to inform them of their medication's approval by[facility]. If applicable, a pharmacist will speak with the patient to offer our specialty pharmacy services and to arrange delivery of their medication. Kevin Ugalde 08/14/20 12:22 PM documented in this encounter Plan of Treatment Upcoming Encounters Date Type Department Care Team (Late st Contact Info) Description 02/19/2025 9:00 AM EDT TH Visit (TeleHealth) [place] [address] Wyatt Higgins MD [facility] [place] [address] documented as of this encounter Visit Diagnoses Not on filedocumented in this encounter Care Teams Camp Recreation Specialist Relationship Specialty Start Date End Date Ruth Munoz APRN [address] [place] [address] PCP - General Family Medicine 02/05/19 documented as of this encounter
--- OUTSIDE RECORDS SUMMARY | 2024-09-18 16:10 | XMS_ITS | Encounter Summary ---
[place] [address] Care Team Providers Care Cutter Grind Tool Technician Name Role Phone AlexanderAidanantony Mcelroy APRN Primary Care Provider + Encounter Details Date Type Department Care Team (Late st Contact Info) Description 03/17/2021 Telephone Dermatology at [address] [address] Benita Salazar LPN Social History [...] AM EDT TH Visit (TeleHealth) [place] [address] Wyatt Higgins MD [facility] [place] [address] documented as of this encounter Visit Diagnoses Not on filedocumented in this encounter Care Teams Cutter Grind Tool Technician Relationship Specialty Start Date End Date Ruth Munoz APRN [address] [place] [address] PCP - General Family Medicine 02/05/19 documented as of this encounter
--- OUTSIDE RECORDS SUMMARY | 2024-09-18 16:10 | XMS_ITS | Encounter Summary ---
[place] [address] Care Team Providers Care Allergy Physician Name Role Phone Ruth Munoz LARRY Primary Care Provider + Reason for Visit * Reason Comments Medication Refill Encounter Details Date Type Department Care Team (Late st Contact Info) Description 10/02/2020 Specialty [place] [address] Sravanthi Cardoza RPH Social History Tobacco Use [...] Medication Management (CMM) Martha Benoit Ms. Martha Benoti is a 54 y.o. (1965) female who [...] beneficiary Provider: plan sponsor pharmacist Visit Type: [facility] Follow-up Method of Contact: by telephone Cognitive Ability: good Cognitive Impairment Status Verified this Year: no Allergies and Drug intolerance: No Known Allergies Medication Reconciliation Discrepancies (compared to [facility] med list) -none New medications: no [...] were made at the appointment and that [facility] is providing recommendations (summary located at top of note) for provider review and follow up. Sravanthi Cardoza RPH 10/02/20 3:24 PM documented in this encounter Plan of Treatment Upcoming Encounters Date Type Department Care Team (Late st Contact Info) Description 02/19/2025 9:00 AM EDT TH Visit (TeleHealth) [place] [phone] Wyatt Higgins MD [facility] [place] [address] documented as of this encounter Visit Diagnoses Not on filedocumented in this encounter Care Teams Allergy Physician Relationship Specialty Start Date End Date Ruth Munoz APRN [address] [place] [address] PCP - General Family Medicine 02/05/19 documented as of this encounter
--- OUTSIDE RECORDS SUMMARY | 2024-09-18 16:10 | XMS_ITS | Encounter Summary ---
[place] [address] Care Team Providers Care Data Collection Interviewer Name Role Phone Ruth Munoz [facility] Primary Care Provider + Encounter Details Date Type Department Care Team (Late st Contact Info) Description 05/24/2021 Orders [place] [address] Randee López APRN [facility] [place] [address] Status post bariatric surgery; Intestinal malabsorption, unspecified [...] AM EDT TH Visit (TeleHealth) [place] [address] Wyatt Higgins MD [facility] [place] [address] documented as of this encounter Results * PTH (05/31/2021 8:48 AM EDT) Parathyroid Hormone 50 15 - 65 pg/mL [facility] Blood 05/31/2021 8:48 AM EDT 05/31/2021 8:54 AM EDT Narrative Resulting Agency Comment Spec In Lab Randee López APRN CHEMISTRY ORDERA BLES Performing Organization Address City/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
--- OUTSIDE RECORDS SUMMARY | 2024-09-18 16:10 | XMS_ITS | Encounter Summary ---
Author Organization [facility] [place] [address] Care Team Providers Care Engineer Sergeant Name Role Phone Ruth Munoz [facility] Primary Care Provider + Encounter Details Date Type Department Care Team (Late st Contact Info) Description 07/08/2020 Orders [place] [address] Randee López SERVICE TECH [facility] [place] [address] Social History Tobacco Use Types Packs/Day Years [...] AM EDT TH Visit (TeleHealth) [place] [address] Wyatt Higgins MD [facility] [place] [address] documented as of this encounter Visit Diagnoses Not on filedocumented in this encounter Care Teams Engineer Sergeant Relationship Specialty Start Date End Date Ruth Munoz APRN [address] [place] [address] PCP - General Family Medicine 02/05/19 documented as of this encounter
--- OUTSIDE RECORDS SUMMARY | 2024-09-18 16:10 | XMS_ITS | Encounter Summary ---
Author Organization [facility] [place] [address] Care Team Providers Care Lead Quality Technician Name Role Phone Ruth Munoz Lilibeth JUAREZ Primary Care Provider + Reason for Visit * Reason Comments Psoriasis Encounter Details Date Type Department Care Team (Late st Contact Info) Description 03/08/2021 11:00 AM EDT Office Visit Dermatology at [address] [phone] Galdino Gilliland MD [address] [place] [address] Psoriasis Social History Tobacco Use Types Packs/Day [...] months for repeat check. CC: Ruth Munoz VICE PRESIDENT SAFETY documented in this encounter Miscellaneous Notes * Addendum Note - Benita Salazar LPN - 03/08/2021 11:00 AM EDTAddended by: BENITA SALAZAR on: 03/17/2021 12:37 PM Modules accepted: Orders documented in this encounter Plan of Treatment Upcoming Encounters Date Type Department Care Team (Late st Contact Info) Description 02/19/2025 9:00 AM EDT TH Visit (TeleHealth) [place] [address] Wyatt Higgins MD [facility] [place] [address] documented as of this encounter Visit Diagnoses Diagnosis Psoriasis Other psoriasis documented in this encounter Care Teams Lead Quality Technician Relationship Specialty Start Date End Date Ruth Munoz, LARRY [address] [place] [address] PCP - General Family Medicine 02/05/19 documented as of this encounter
--- OUTSIDE RECORDS SUMMARY | 2024-09-18 16:10 | XMS_ITS | Encounter Summary ---
[place] [address] Care Team Providers Care Automotive Fuel Systems Converter Name Role Phone Ruth Munoz LARRY Primary Care Provider + Reason for Visit * Reason Comments Specialty Refill Management Encounter Details Date Type Department Care Team (Late st Contact Info) Description 06/22/2021 Specialty [place] [address] Sravanthi Cardoza RPH Social History Tobacco Use [...] Allergies Medication Reconciliation Discrepancies (compared to [facility] med list) No Specialty Pharmacy [...] AM EDT TH Visit (TeleHealth) [place] [address] Wyatt Higgins MD [facility] [place] [address] documented as of this encounter Visit Diagnoses Not on filedocumented in this encounter Care Teams Automotive Fuel Systems Converter Relationship Specialty Start Date End Date Ruth Munoz APRN [address] [place] [address] PCP - General Family Medicine 02/05/19 documented as of this encounter
--- OUTSIDE RECORDS SUMMARY | 2024-09-18 16:10 | XMS_ITS | Encounter Summary ---
Author Organization [facility] [place] [address] Care Team Providers Care Machine Tool Technician Instructor Name Role Phone Ruth Munoz APRN Primary Care Provider + Encounter Details Date Type Department Care Team (Late st Contact Info) Description 06/18/2020 Ancillary Procedure Radiology Library at [facility] [place] [place] [address] Ruth Munoz APRN [address] [place], [place] [address] Social History Tobacco Use Types Packs/Day Years [...] AM EDT TH Visit (TeleHealth) Neurology at [facility] [place] [place] [address] Wyatt Higgins MD [facility] [place] [address] documented as of this encounter Procedures Procedure Name Priority Date/Time Associated Diagnosis Comments FILM LIBRARY STORAGE ONLY MR HEAD Routine 06/18/2020 12:00 AM EDT documented in this encounter Results * Film Library- Storage Only MR Head (06/18/2020 12:00 AM EDT) Narrative [facility] - 09/24/2020 9:50 AM EST This exam is auto-finalizing. It's purpose is for storage only. Ruth Munoz APRN IMSloan FILM LIBRARY ORDERABLES Performing Organization Address City/State/[facility] Co de Phone Number [place], [place] documented in this encounter Visit Diagnoses Not on filedocumented in this encounter Care Teams Machine Tool Technician Instructor Relationship Specialty Start Date End Date Ruth Munoz APRN [address] [place] [address] PCP - General Family Medicine 02/05/19 documented as of this encounter
--- OUTSIDE RECORDS SUMMARY | 2024-09-18 16:10 | XMS_ITS | Encounter Summary ---
[place] [address] Care Team Providers Care Sales And Service Change Leader Name Role Phone Ruth Munoz LARRY Primary Care Provider + Reason for Visit * Reason Comments Medication Management Patient Education Encounter Details Date Type Department Care Team (Late st Contact Info) Description 07/16/2021 Specialty Pharmacy [place] [address] Nura Lozano [facility] Social History Tobacco Use Types Packs/Day Years [...] Refill Specialty Pharmacy Consultation; Nura Lozano [facility] Comprehensive Medication Management (CMM) Martha Benoit Ms. [...] Allergies Medication Reconciliation Discrepancies (compared to [facility] med list) No Specialty Pharmacy Refill [...] AM EDT TH Visit (TeleHealth) [place] [address] Wyatt Higgins MD [facility] [place] [address] documented as of this encounter Visit Diagnoses Not on filedocumented in this encounter Care Teams Sales And Service Change Leader Relationship Specialty Start Date End Date Ruth Munoz APRN [address] [place] [address] PCP - General Family Medicine 02/05/19 documented as of this encounter
--- OUTSIDE RECORDS SUMMARY | 2024-09-18 16:10 | XMS_ITS | Encounter Summary ---
Author Organization [facility] [place] [address] Care Team Providers Care Bedspread Folder Name Role Phone Ruth Munoz APRN Primary Care Provider + Reason for Visit * Consultation (Routine) - Closed Specialty Diagnoses / Procedures Referred By Patricio monsivais Referred To Contact Neurology Diagnoses Hereditary and idiopathic neuropathy, unspecified Myoneural disorder, unspecified f/up consult with Ruth Oviedo APRN [address] [place] [address] [facility] Neurology [address] [place] [address] Referral ID Status Reason Start Date Expiration Date V isits Requested Visits Authorized [id number] Closed Consult, Test & Treat Connection Center PCP Updated and/or Approved 03/10/2021 09/10/2021 6 6 Encounter Details Date Type Department Care Team (Latest Contact Info) Description 05/19/2021 8:30 AM EDT TH Visit (TeleHealth) [place] [address] Wyatt Higgins MD [facility] [place] [address] Type 2 diabetes mellitus with diabetic neuropathy, [...] leftear pain which was worked up at [facility]. I was unable to find any information on care everywhere. In October of this year she started to have decreased urine flow and she went to see a urologist at [facility]. Apparently there is some urinary hesitancy and [...] AM EDT TH Visit (TeleHealth) [place] [address] Wyatt Higgins MD [facility] [place] [address] documented as of this encounter Visit Diagnoses Diagnosis Type 2 diabetes mellitus with diabetic neuropathy, with long-term current use of insulin documented in this encounter Care Teams Bedspread Folder Relationship Specialty Start Date End Date Ruth Munoz APRN [address] [place] [address] PCP - General Family Medicine 02/05/19 documented as of this encounter
--- OUTSIDE RECORDS SUMMARY | 2024-09-18 16:10 | XMS_ITS | Encounter Summary ---
Author Organization [facility] [place] [address] Care Team Providers Care Recycle Coordinator Name Role Phone Ruth Munoz [facility] Primary Care Provider + Encounter Details Date Type Department Care Team (Late st Contact Info) Description 09/28/2020 External Results [place] [address] Randee López SAT ACT INSTRUCTOR [facility] [place] [address] Social History Tobacco Use Types Packs/Day Years [...] AM EDT TH Visit (TeleHealth) [place] [address] Wyatt Higgins MD [facility] [place] [address] documented as of this encounter Procedures Procedure Name Priority Date/Time Associated Diagnosis Comments LAB SCAN Routine 09/24/2020 documented in this encounter Results * Scan Doc: Lab (09/24/2020) Randee López APRN MEDIA MGR SCAN E XT ORDR/RSLT documented in this encounter Visit Diagnoses Not on filedocumented in this encounter Care Teams Recycle Coordinator Relationship Specialty Start Date End Date Ruth Munoz APRN [address] [place] [address] PCP - General Family Medicine 02/05/19 documented as of this encounter
--- OUTSIDE RECORDS SUMMARY | 2024-09-18 16:10 | XMS_ITS | Encounter Summary ---
[place] [address] Care Team Providers Care Horologist Name Role Phone Ruth Munoz LARRY Primary Care Provider + Reason for Visit * Reason Comments Specialty Refill Management Encounter Details Date Type Department Care Team (Late st Contact Info) Description 12/28/2020 Specialty [place] [address] Sravanthi Cardoza RPH Social History Tobacco Use [...] beneficiary Provider: plan sponsor pharmacist Visit Type: [facility] Follow-up Method of Contact: by telephone Cognitive Ability: good Cognitive Impairment Status Verified this Year: no Allergies and Drug intolerance: No Known Allergies Medication Reconciliation Discrepancies (compared to [facility] med list) -none New medications: no [...] made at the appointment and that [facility] is providing recommendations (summary located at top of note) for provider review and follow up. Sravanthi Cardoza RPH 12/28/20 10:39 AM documented in this encounter Plan of Treatment Upcoming Encounters Date Type Department Care Team (Late st Contact Info) Description 02/19/2025 9:00 AM EDT TH Visit (TeleHealth) [place] [address] Wyatt Higgins MD [facility] [place] [address] documented as of this encounter Visit Diagnoses Not on filedocumented in this encounter Care Teams Horologist Relationship Specialty Start Date End Date Ruth Munoz, SECURITIES VAULT SUPERVISOR [address] [place] [address] PCP - General Family Medicine 02/05/19 documented as of this encounter
--- OUTSIDE RECORDS SUMMARY | 2024-09-18 16:10 | XMS_ITS | Encounter Summary ---
[place] [address] Care Team Providers Care Airfield Operations Specialist Name Role Phone Alexander Ruth Mcelroy APRN Primary Care Provider + Encounter Details Date Type Department Care Team (Late st Contact Info) Description 05/13/2021 Telephone [place] [phone] Brittnee Cooper Social History Tobacco Use Types [...] AM EDT TH Visit (TeleHealth) [place] [address] Wyatt Higgins MD [facility] [place] [address] documented as of this encounter Visit Diagnoses Not on filedocumented in this encounter Care Teams Airfield Operations Specialist Relationship Specialty Start Date End Date Ruth Munoz APRN [address] [place] [address] PCP - General Family Medicine 02/05/19 documented as of this encounter
--- OUTSIDE RECORDS SUMMARY | 2024-09-18 16:10 | XMS_ITS | Encounter Summary ---
[place] [address] Care Team Providers Care Boardmarker Name Role Phone Ruth Munoz LARRY Primary Care Provider + Reason for Visit * Reason Comments Medication Management Patient Education Encounter Details Date Type Department Care Team (Late st Contact Info) Description 04/27/2021 Specialty [place] [address] Nura Lozano [facility] Social History Tobacco Use Types [...] Specialty Pharmacy Consultation; Nura Lozano [facility] Comprehensive Medication Management (CMM) Martha [...] beneficiary Provider: plan sponsor pharmacist Visit Type: [facility] Follow-up Method of Contact: by telephone Cognitive Ability: good Cognitive Impairment Status Verified this Year: no Allergies and Drug intolerance: No Known Allergies Medication Reconciliation Discrepancies (compared to [facility] med list) -Was holding dose. Missed roughly [...] AM EDT TH Visit (TeleHealth) [place] [address] Wyatt Higgins MD [facility] [place] [address] documented as of this encounter Visit Diagnoses Not on filedocumented in this encounter Care Teams Boardmarker Relationship Specialty Start Date End Date Ruth Munoz APRN [address] [place] [address] PCP - General Family Medicine 02/05/19 documented as of this encounter
--- OUTSIDE RECORDS SUMMARY | 2024-09-18 16:10 | XMS_ITS | Encounter Summary ---
[place] [address] Care Team Providers Care Distance Education Teacher Name Role Phone Ruth Munoz LARRY Primary Care Provider + Reason for Visit * Reason Onset Date Comments Medication Refill 2020 Encounter Details Date Type Department Care Team (Late st Contact Info) Description 2020 Refill [place] [phone] Santos Mccloud RN Social History Tobacco Use [...] EDT TH Visit (TeleHealth) [place] [address] Wyatt Higgins MD [facility] [place] [address] documented as of this encounter Visit Diagnoses Not on filedocumented in this encounter Care Teams Distance Education Teacher Relationship Specialty Start Date End Date Ruth Munoz APRN [address] [place] [address] PCP - General Family Medicine 02/05/19 documented as of this encounter
--- OUTSIDE RECORDS SUMMARY | 2024-09-18 16:10 | XMS_ITS | Encounter Summary ---
Author Organization [facility] [place] [address] Care Team Providers Care Greeting Card Editor Name Role Phone MunozRuth jerome Lilibeth [facility] Primary Care Provider + Encounter Details Date Type Department Care Team (Late st Contact Info) Description 10/06/2020 3:30 PM EST TH Visit (TeleHealth) [place] [address] Randee López, SOFT DRINK POWDER MIXER [facility] [place] [address] Nany Tai, RD [facility] [place] [address] Status post bariatric surgery; Disorder of iron [...] this encounter Patient Instructions * Patient Instructions* Letendre, Nany D, RD - 10/06/2020 3:30 PM EST [facility] marketing support specialist Latosha [phone] and Julia [phone] Dietitians: [phone] Surgeons/ nurse practitioners: [phone] Nurse line: [phone] Dear Martha, Below please find a summary [...] your vitamins and supplements. Please call/send my [employer] message if you have not heard from [...] on a more frequent basis. Please call [phone] if you do not receive an appointment [...] Blow dry area on low setting with chair maker. 3. Apply absorbent powder such as Gold [...] Our post surgery support group meets at [facility] on the first Monday of every month from 1:00 PM-2:00 PM. Nutrition and Activity apps- Baritastic, My Fitness Pal, Lose It, My Plate Internet resources: www.Fleksy wwwOutbox Systems www.Digital Authentication Technologies www.WiLinx/blog [facility] facebook page: https://www.Proven.com/[facility]STERBariatricSurgery Books & Magazines: - Recipes for Life After Weight Loss Surgery by Ashli Wiseman - Shrink Yourself by Dr Stephen Dial - Eating Well - www.Abazab - Cooking Light- www.cookinglight.8fit - Fitness for the rest of us Anxiety: The Happiness Trap by Mir Short The Mindfulness and acceptance workbook for anxiety By James Sunshine. Mindful eating: What are you Hungry For? By Jose Duran The Mindful Diet by Abby Hernandez and the [facility] group. Emotional eating: End Emotional Eating by Nany Matos Calming the Emotional Storm Floresita Cortes documented in this encounter Progress Notes * Randee López APRN - 10/06/2020 3:30 [place] [address] Bariatric Surgery Program: Telehealth/telephone Encounter. 1. Reason/purpose [...] pain, nausea, vomiting. No diarrhea or constipation. PHARMACY DISTRICT MANAGER: post menopausal Skin: + redundant skin. skin [...] vomiting, failure to progress diet. Transfer to [facility] on 01/25/16 Late none Pre-op 11/03/15 Wt [...] surgery perspective o Patient has met with overhead irrigator today, please see note for additional details/dietary [...] If labwork is done by the primary home care and home health aides teacher: please send a copy to the Bariatric Surgery Program, General Surgery Clinic, [facility], or fax [phone] * Nany Tai RD - 10/06/2020 3:30 PM EST Bariatric Nutrition Telephone Office Visit Call made with Randee López APRN At time of the call patient was at home in [place]. SUBJECTIVE: Topics Discussed/Patient Concerns: Wondering about her [...] Supplement Type Brand/Form Dosage/Amount Frequency Comments Multivitamin [place]'s chewable 1 Twice??daily ?? Calcium ? none [...] Snack Sausage link w an egg Lunch [place] and coffee PM Snack Single serve package [...] AM EDT TH Visit (TeleHealth) [place] [address] Wyatt Higgins MD [facility] [place] [address] documented as of this encounter Visit Diagnoses Diagnosis Status post bariatric surgery Bariatric surgery status Disorder of iron metabolism Other disorders of iron metabolism documented in this encounter Care Teams Greeting Card Editor Relationship Specialty Start Date End Date Ruth Munoz, LARRY [address] [place] [address] PCP - General Family Medicine 02/05/19 documented as of this encounter
--- OUTSIDE RECORDS SUMMARY | 2024-09-18 16:10 | XMS_ITS | Encounter Summary ---
[place] [address] Care Team Providers Care Finishing Room Operator Name Role Phone Ruth Munoz LARRY Primary Care Provider + Reason for Visit * Reason Comments Medication Management Patient Education Encounter Details Date Type Department Care Team (Late st Contact Info) Description 06/08/2020 Specialty [place] [address] Thais Bernardo, [facility] Social History Tobacco Use Types Packs/Day [...] this encounter Progress Notes * Thais Bernardo [facility] - 06/08/2020 2:04 PM EDT Clinical Management Plan: Refill Specialty Pharmacy Consultation; Thais Bernardo [facility] Comprehensive Medication Management (CMM) Martha Benoit [...] beneficiary Provider: plan sponsor pharmacist Visit Type: [facility] [place] [facility] [place] Method of Contact: by telephone Cognitive Ability: good Cognitive Impairment Status Verified this Year: no Allergies and Drug intolerance: No Known Allergies Medication Reconciliation Discrepancies (compared to [facility] med list) -none New medications: [...] AM EDT TH Visit (TeleHealth) [place] [address] Wyatt Higgins MD [facility] [place] [address] documented as of this encounter Visit Diagnoses Not on filedocumented in this encounter Care Teams Finishing Room Operator Relationship Specialty Start Date End Date Ruth Munoz, JAVA XML DEVELOPER [address] [place] [address] PCP - General Family Medicine 02/05/19 documented as of this encounter
--- OUTSIDE RECORDS SUMMARY | 2024-09-18 16:10 | XMS_ITS | Encounter Summary ---
[place] [address] Care Team Providers Care Service Restorer Emergency Name Role Phone Ruth Munoz Lilibeth JUAREZ Primary Care Provider + Encounter Details Date Type Department Care Team (Late st Contact Info) Description 11/23/2020 Telephone [place] [phone] Santos Mccloud RN Social History Tobacco Use [...] included. Judith Reinoso MD to Me ??? [facility] Endocrinology Bank Guard ?? 11/23/20 8:12 PM Yes, please schedule [...] AM EDT TH Visit (TeleHealth) [place] [address] Wyatt Higgins MD [facility] [place] [address] documented as of this encounter Visit Diagnoses Not on filedocumented in this encounter Care Teams Service Restorer Emergency Relationship Specialty Start Date End Date Ruth Munoz APRN [address] [place] [address] PCP - General Family Medicine 02/05/19 documented as of this encounter
--- OUTSIDE RECORDS SUMMARY | 2024-09-18 16:10 | XMS_ITS | Encounter Summary ---
Author Organization [facility] [place] [address] Care Team Providers Care Reinstatement Clerk Name Role Phone MunozRuth jerome Lilibeth JUAREZ Primary Care Provider + Encounter Details Date Type Department Care Team (Late st Contact Info) Description 08/05/2021 7:58 AM EDT - 08/05/2021 1:04 PM EDT Hospital Encounter [place] [address] Anam Stuart MD [facility] [place] [address] Discharge Disposition: Home Social History Tobacco Use [...] to be checked. Monday-Monday Same Day Endo [phone] Otherwise contact [phone] and ask to speak to the portable sawmill operator automotive parts counterperson Follow up care is a [place] part [...] mouth nightly. UNABLE TO FIND Med Name: [place] vitamins take one tablet by mouth twice [...] 90 tablet 3 05/31/2021 06/01/2022 Sod Phos [place]-Sod Phos Dibasic (OsmoPrep) 1.5 gram TabletIndications:Ad enomatous [...] complication. Informed Consent signed by patient (or patient relations representative). documented in this encounter Plan of Treatment Upcoming Encounters Date Type Department Care Team (Late st Contact Info) Description 02/19/2025 9:00 AM EDT TH Visit (TeleHealth) [place] [address] Wyatt Higgins MD [facility] [place] [address] documented as of this encounter Procedures Procedure Name Priority Date/Time Associated Diagnosis Comments POCT GLUCOSE Routine 08/05/2021 12:05 PM EDT POCT FINGERSTICK GLUCOSE Routine 08/05/2021 12:04 PM EDT Colonoscopy, Diagnostic (05558) 08/05/2021 11:12 AM EDT screening hx of hyperplastic and tubular polyps COLONOSCOPY Routine 08/05/2021 11:09 AM EDT POCT GLUCOSE Routine 08/05/2021 10:10 AM EDT documented in this encounter Results * POCT Glucose (08/05/2021 12:05 PM EDT) Glucose, POC 104 65 - 199 mg/dL [facility] Comment: Supplemental ranges: <140 mg/dL before meals <180 mg/dL all other times of the day Blood 08/05/2021 12:0 5 PM EDT 08/04/2021 12:00 PM EDT Anam Stuart MD POINT OF CARE FABIENNE T ORDERABLES [facility] [place] [address] * POCT Fingerstick Glucose (08/05/2021 12:04 PM EDT) Glucose, POC 104 60 - 199 mg/dl 08/05/2021 12:0 4 PM EDT Anam Stuart MD POINT OF CARE FABIENNE T ORDERABLES * COLONOSCOPY (08/05/2021 11:09 AM EDT) Pathologist [facility] COLONOSCOPY [facility] Endoscopy Procedure Date: 08/05/2021 11:09 AM ? Patient Name: Martha Benoit ? N: [id number] ? Date of : 1965 ? Age: 55 ? Order #: [id number] ? Instrument Name: [id number] ? Procedure: ? Colonoscopy Indications: ? Screening [...] preparation was evaluated using ? the BBPS ([place] Bowel Preparation ? Scale) with scores of: [...] EDT Ruth Munoz APRN GENERAL SURGICAL ORDERABLES Performing Organization Address City/[facility]/ZIP Co de Phone Number PROVATION * POCT Glucose (08/05/2021 10:10 AM EDT) Glucose, POC 118 65 - 199 mg/dL [facility] Comment: Supplemental ranges: <140 mg/dL before meals <180 mg/dL all other times of the day Blood 08/05/2021 10:1 0 AM EDT 08/04/2021 12:00 PM EDT Anam Stuart MD POINT OF CARE FABIENNE T ORDERABLES Performing Organization Address City/[facility]/ZIP Co de Phone Number [facility] [place] [address] documented in this encounter Visit Diagnoses Not [...] CRNA) documented in this encounter Care Teams Reinstatement Clerk Relationship Specialty Start Date End Date Ruth Munoz, SWISS TYPE SCREW MACHINE OPERATOR [address] [place] [address] PCP - General Family Medicine 02/05/19 documented as of this encounter
--- OUTSIDE RECORDS SUMMARY | 2024-09-18 16:10 | XMS_ITS | Encounter Summary ---
[place] [address] Care Team Providers Care Patient Support Representative Name Role Phone Ruth Munoz LARRY Primary Care Provider + Reason for Visit * Reason Comments Medication Management Encounter Details Date Type Department Care Team (Late st Contact Info) Description 07/10/2020 Specialty [place] [address] Sravanthi Cardoza RPH Social History Tobacco Use [...] beneficiary Provider: plan sponsor pharmacist Visit Type: [facility] Follow-up Method of Contact: by telephone Cognitive Ability: good Cognitive Impairment Status Verified this Year: no Allergies and Drug intolerance: No Known Allergies Medication Reconciliation Discrepancies (compared to [facility] med list) -none New medications: no [...] were made at the appointment and that [facility] is providing recommendations (summary located at top of note) for provider review and follow up. Sravanthi Cardoza RPH 07/10/20 2:45 PM documented in this encounter Plan of Treatment Upcoming Encounters Date Type Department Care Team (Late st Contact Info) Description 02/19/2025 9:00 AM EDT TH Visit (TeleHealth) [place] [phone] Wyatt Higgins MD [facility] [place] [address] documented as of this encounter Visit Diagnoses Not on filedocumented in this encounter Care Teams Patient Support Representative Relationship Specialty Start Date End Date Ruth Munoz APRN [address] [place] [address] PCP - General Family Medicine 02/05/19 documented as of this encounter
--- OUTSIDE RECORDS SUMMARY | 2024-09-18 16:10 | XMS_ITS | Encounter Summary ---
[place] [address] Care Team Providers Care Colors Custodian Name Role Phone Ruth Munoz LARRY Primary Care Provider + Reason for Visit * Reason Comments Specialty Refill Management Encounter Details Date Type Department Care Team (Late st Contact Info) Description 01/22/2021 Specialty [place] [address] Sravanthi Cardoza RPH Social History Tobacco Use [...] Known Allergies Medication Reconciliation Discrepancies (compared to [facility] med list) No Specialty Pharmacy [...] to current drug regimen were made.. Sravanthi Cradoza RPH 01/22/21 11:52 AM documented in this encounter Plan of Treatment Upcoming Encounters Date Type Department Care Team (Late st Contact Info) Description 02/19/2025 9:00 AM EDT TH Visit (TeleHealth) [place] [address] Wyatt Higgins MD [facility] [place] [address] documented as of this encounter Visit Diagnoses Not on filedocumented in this encounter Care Teams Colors Custodian Relationship Specialty Start Date End Date Ruth Munoz APRN [address] [place] [address] PCP - General Family Medicine 02/05/19 documented as of this encounter
--- OUTSIDE RECORDS SUMMARY | 2024-09-18 16:10 | XMS_ITS | Encounter Summary ---
[place] [address] Care Team Providers Care Cutting Machine Tender Helper Name Role Phone MunozRuth jerome Lilibeth JUAREZ Primary Care Provider + Encounter Details Date Type Department Care Team (Late st Contact Info) Description 07/08/2020 Telephone [place] [phone] Lauren Fowler RN Social History Tobacco Use [...] D 50,000 iu 1x/week and 2 of [place] MVI with iron which contains iron (she [...] AM EDT TH Visit (TeleHealth[place] [address] Wyatt Higgins MD [facility] [place] [address] documented as of this encounter Visit Diagnoses Not on filedocumented in this encounter Care Teams Cutting Machine Tender Helper Relationship Specialty Start Date End Date Ruth Munoz APRN [address] [place] [address] PCP - General Family Medicine 02/05/19 documented as of this encounter
--- OUTSIDE RECORDS SUMMARY | 2024-09-18 16:10 | XMS_ITS | Encounter Summary ---
Author Organization [facility] [place] [address] Care Team Providers Care Panel Builder Name Role Phone Ruth Munoz Lilibeth JUAREZ Primary Care Provider + Reason for Visit * Reason Onset Date Comments Medication Refill 2020 Encounter Details Date Type Department Care Team (Late st Contact Info) Description 2020 Refill [place] [address] Santos Mccloud, RN Social History Tobacco Use [...] AM EDT TH Visit (TeleHealth) [place] [phone] Wyatt Higgins MD [facility] [place] [address] documented as of this encounter Visit Diagnoses Not on filedocumented in this encounter Care Teams Panel Builder Relationship Specialty Start Date End Date Ruth Munoz, LARRY [address] [place] [address] PCP - General Family Medicine 02/05/19 documented as of this encounter
--- OUTSIDE RECORDS SUMMARY | 2024-09-18 16:10 | XMS_ITS | Encounter Summary ---
Author Organization [facility] [place] [address] Care Team Providers Care White Mixing Operator Name Role Phone MunozRuth jerome Lilibeth JUAREZ Primary Care Provider + Reason for Visit * Reason Onset Date Comments TeleHealth 05/18/2021 Encounter Details Date Type Department Care Team (Late st Contact Info) Description 05/18/2021 [place] [address] Wyatt Higgins MD [facility] [place] [address] TeleHealth Social History Tobacco Use Types Packs/Day [...] AM EDT TH Visit (TeleHealth) [place] [address] Wyatt Higgins MD [facility] [place] [address] documented as of this encounter Visit Diagnoses Not on filedocumented in this encounter Care Teams White Mixing Operator Relationship Specialty Start Date End Date Ruth Munoz, LARRY [address] [place] [address] PCP - General Family Medicine 02/05/19 documented as of this encounter
--- OUTSIDE RECORDS SUMMARY | 2024-09-18 16:10 | XMS_ITS | Encounter Summary ---
Author Organization [facility] [place] [address] Care Team Providers Care Court Supervisor Name Role Phone AlexanderAidanantony Mcelroy APRN Primary Care Provider + Encounter Details Date Type Department Care Team (Late st Contact Info) Description 05/31/2021 10:00 AM EDT Office [place] [address] Judith Reinoso MD [facility] [place] [address] Hypothyroidism, acquired; Type 2 diabetes, controlled, with [...] * Patient Instructions* Judith Reinoso MD - 05/31/2021 10:00 AM EDT Recent [...] D 50,000 iu weekly and 2 of [place] MVI with iron which contains iron (she [...] with PCP for her A1c, TSH at [facility] and will let her know the [...] Progress Notes * Judith Reinoso MD - 05/31/2021 10:00 AM EDT Endocrine [...] and is pending for lab results at [facility]. She has been taking [place] multivitamin to 2 tab daily with normal [...] Medication Sig Dispense Refill ??? Sod Phos Barnes-Sod Phos Dibasic (OsmoPrep) 1.5 gram Tablet Take [...] 3 ??? UNABLE TO FIND Med Name: [place] vitamins take one tablet by mouth twice [...] D 50,000 iu weekly and 2 of [place] MVI with iron which contains iron (she [...] with PCP for her A1c, TSH at [facility] lab and will let her know [...] Addendum Note - Judith Reinoso MD - 05/31/2021 10:00 AM EDTAddended by: JUDITH REINOSO on: 04/05/2022 11:28 PM Modules accepted: Orders documented in this encounter Plan of Treatment Upcoming Encounters Date Type Department Care Team (Late st Contact Info) Description 02/19/2025 9:00 AM EDT TH Visit (TeleHealth) [place] [address] Wyatt Higgins MD [facility] [place] [address] documented as of this encounter Results * Iron and TIBC (06/07/2022 11:47 AM EDT) Iron 83 30 - 150 mcg/dL [facility] TIBC 305 250 - 450 mcg/dL [facility] Iron Saturation 27 20 - 50 % [facility] Blood 06/07/2022 11:4 7 AM EDT 06/07/2022 11:54 AM EDT Narrative Resulting Agency Comment Spec In Lab Judith Reinoso MD CHEMISTRY ORDERAB LES Performing Organization Address City/[facility]/ZIP Co de Phone Number [facility] [place] [address] * (ABNORMAL) Vitamin B12 (06/07/2022 11:47 AM EDT) Vitamin B12 >2,000(H) 232 - 1,245 pg/mL [facility] Blood 06/07/2022 11:4 7 AM EDT 06/07/2022 11:54 AM EDT Narrative Resulting Agency Comment Spec In Lab Judith Reinoso MD CHEMISTRY ORDERAB LES [facility] [place] [address] * Vitamin D, 25-Hydroxy (06/07/2022 11:47 AM EDT) Vitamin D Total 25 OH 36 21 - 100 ng/mL [facility] Vit D Interp Sufficient [facility] Blood 06/07/2022 11:4 7 AM EDT 06/07/2022 11:54 AM EDT Narrative Resulting Agency Comment Spec In Lab Judith Reinoso MD CHEMISTRY ORDERAB LES [facility] [place] [address] * Lipid Panel (Reflex Direct LDL) (06/07/2022 11:47 AM EDT) Cholesterol, Total 207 mg/dL [facility] Comment: Lower Risk: <200 mg/dL Average Risk: 200-239 mg/dL Higher Risk: >sa=407 mg/dL Triglyceride 163 mg/dL [facility] Comment: Average Risk/Lower Risk: <150 mg/dL Borderline High Risk: 150-199 mg/dL High Risk: 200-499 mg/dL Very High Risk: >ol=082 mg/dL HDL Cholesterol 50 mg/dL [facility] Comment: Males: ?? Higher Risk: <40 mg/dL Females: ?? Higher Risk: <50 mg/dL LDL Cholesterol 124 mg/dL [facility] Comment: Lowest Risk: <100 mg/dL Lower Risk: 100-129 mg/dL Borderline High Risk: 130-159 mg/dL High Risk: 160-189 mg/dL Very High Risk: >wn=878 mg/dL Cholesterol/HDL Ratio 4.1 ratio [facility] Lipid Interpretation See Note [facility] Comment: Lipid management should be guided by a patient? s ASCVD risk, goals and preferences. ACC/AHA Guidelines recommend high intensity statin if clinical ASCVD or LDL greater than or equal to 190 mg/dL. [email or web address] [email or web address]-YCO-[email or web address] Adults aged 40-75 with LDL 70-189 mg/dL should have their 10 year ASCVD risk estimated with the ACC/AHA ASCVD risk body shop estimator http://tools.acc.org/XZNGF-Klif-Iolkfvxuw/ Statin should be discussed if risk greater [...] CHEMISTRY ORDERAB LES [facility] [place] [address] * (ABNORMAL) Comprehensive metabolic panel (non-fasting) (06/07/2022 11:47 AM EDT) Glucose 74 65 - 199 mg/dL [facility] Comment:Diabetes: >=200 mg/d L plus symptoms Blood Urea Nitrogen 10 8 - 18 mg/dL [facility] [...] - 107 mmol/L [facility] Carbon Dioxide 26 22 - 31 mmol/L [facility] Anion Gap 12 5 - 15 mmol/L [facility] Calcium 9.4 8.5 - 10.5 mg/dL [facility] Protein, Total 7.6 6.1 - 8.0 g/dL [facility] Albumin 4.6 3.2 - 5.2 g/dL [facility] Aspartate Aminotransferase 19 0 - 30 unit/L [facility] Alanine Aminotransferase 17 0 - 30 unit/L [facility] Alkaline Phosphatase 94 35 - 105 unit/L [facility] Bilirubin, Total 0.3 0.2 - 1.3 mg/dL [facility] Est Glomerular Filtration Rate 115 >=60 mL/min/1. 73 m?? [facility] [...] CHEMISTRY ORDERAB LES [facility] [place] [address] * TSH (06/07/2022 11:47 AM EDT) Thyroid Stimulating Hormone 2.07 0.27 - 4.20 mcIU/mL [facility] Comment: Reference Interval (mcIU/mL): Females: ??First Trimester: 0.23-3.88 ??Second Trimester: 0.22-3.90 ??Third Trimester: 0.44-4.66 Blood 06/07/2022 11:4 7 AM EDT 06/07/2022 11:54 AM EDT Narrative Resulting Agency Comment Spec In Lab Judith Reinoso MD CHEMISTRY ORDERAB LES [facility] [place] [address] * (ABNORMAL) Hemoglobin A1c (06/07/2022 11:47 AM EDT) Hemoglobin A1c 7.5(H) 4.3 - 5.6 % [facility] [...] Mellitus, Diabetes Care 2013; 36: Suppl. 1, S67-41 Estimated Average Glucose 169 mg/dL [facility] Comment: eAG [...] into estimated average glucose values. ??Diabetes Care 2008:31(8):1148-9691. Blood 06/07/2022 11:4 7 AM EDT 06/07/2022 11:54 AM EDT Narrative Resulting Agency Comment Spec In Lab Judith Reinoso MD CHEMISTRY ORDERAB LES Performing Organization Address [facility]/ZIP Co de Phone Number [facility] [place] [address] * U Albumin/Cre Ratio (06/07/2022 11:32 AM EDT) Albumin / Creatinin Ratio, Urine 11 0 - 29 mcg/mg Cr [facility] [...] 2, 357? 362 Albumin, Urine 5.2 mg/L [facility] Creatinine, Urine 48 mg/dL [facility] Urine 06/07/2022 11:3 2 AM EDT 06/07/2022 11:43 AM EDT Narrative Resulting Agency Comment Spec In Lab Judith Reinoso MD URINE ORDERABLES Performing Organization Address [facility]/ZIP Co de Phone Number [facility] [place] [address] documented in this encounter Visit Diagnoses Diagnosis Hypothyroidism, acquired Unspecified hypothyroidism Type 2 diabetes, controlled, with neuropathy Type II or unspecified type diabetes mellitus with neurological manifestations, not stated as uncontrolled History of gastric bypass Bariatric surgery status Vitamin D deficiency Unspecified vitamin D deficiency documented in this encounter Care Teams Court Supervisor Relationship Specialty Start Date End Date Ruth Munoz, GRINDER SET UP OPERATOR THREAD TOOL [address] [place] [address] PCP - General Family Medicine 02/05/19 documented as of this encounter
--- OUTSIDE RECORDS SUMMARY | 2024-09-18 16:10 | XMS_ITS | Encounter Summary ---
[place] [address] Care Team Providers Care Sterile Proc Tech Name Role Phone Ruth Munoz LARRY Primary Care Provider + Reason for Visit * Reason Comments Medication Management Encounter Details Date Type Department Care Team (Late st Contact Info) Description 08/05/2020 Specialty [place] [address] Sravanthi Cardoza RPH Social History Tobacco Use [...] beneficiary Provider: plan sponsor pharmacist Visit Type: [facility] Follow-up Method of Contact: by telephone Cognitive Ability: good Cognitive Impairment Status Verified this Year: no Allergies and Drug intolerance: No Known Allergies Medication Reconciliation Discrepancies (compared to [facility] med list) -none New medications: no [...] at the appointment and that [facility] is providing recommendations (summary located at top of note) for provider review and follow up. Sravanthi Cardoza RPH 08/05/20 11:48 AM documented in this encounter Plan of Treatment Upcoming Encounters Date Type Department Care Team (Late st Contact Info) Description 02/19/2025 9:00 AM EDT TH Visit (TeleHealth) [place] [address] Wyatt Higgins MD [facility] [place] [address] documented as of this encounter Visit Diagnoses Not on filedocumented in this encounter Care Teams Sterile Proc Tech Relationship Specialty Start Date End Date Ruth Munoz, MANAGER COMPLETIONS [address] [place] [address] PCP - General Family Medicine 02/05/19 documented as of this encounter
--- OUTSIDE RECORDS SUMMARY | 2024-09-18 16:10 | XMS_ITS | Encounter Summary ---
[place] [address] Care Team Providers Care Chemical Equipment Sales Engineer Name Role Phone Ruth Munoz LARRY Primary Care Provider + Encounter Details Date Type Department Care Team (Late st Contact Info) Description 01/25/2021 Telephone [place] [phone] Santos Mccloud RN Social History Tobacco Use [...] AM EDT TH Visit (TeleHealth) [place] [address] Wyatt Higgins MD [facility] [place] [address] documented as of this encounter Visit Diagnoses Not on filedocumented in this encounter Care Teams Chemical Equipment Sales Engineer Relationship Specialty Start Date End Date Ruth Munoz APRN [address] [place] [address] PCP - General Family Medicine 02/05/19 documented as of this encounter
--- OUTSIDE RECORDS SUMMARY | 2024-09-18 16:10 | XMS_ITS | Encounter Summary ---
[place] [address] Care Team Providers Care School Transportation Supervisor Name Role Phone Ruth Munoz LARRY Primary Care Provider + Reason for Visit * Reason Comments Medication Management Patient Education Encounter Details Date Type Department Care Team (Late st Contact Info) Description 05/19/2021 Specialty Pharmacy [place] [address] Nura Lozano [facility] Social History [...] Plan: Refill Specialty Pharmacy Consultation; Nura Lozano [facility] Comprehensive Medication [...] AM EDT TH Visit (TeleHealth) [place] [address] Wyatt Higgins MD [facility] [place] [address] documented as of this encounter Visit Diagnoses Not on filedocumented in this encounter Care Teams School Transportation Supervisor Relationship Specialty Start Date End Date Ruth Munoz APRN [address] [place] [address] PCP - General Family Medicine 02/05/19 documented as of this encounter
--- OUTSIDE RECORDS SUMMARY | 2024-09-18 16:10 | XMS_ITS | Encounter Summary ---
Author Organization [facility] [place] [address] Care Team Providers Care Director Consumer Affairs Name Role Phone MunozRuth jerome Lilibeth JUAREZ Primary Care Provider + Encounter Details Date Type Department Care Team (Late st Contact Info) Description 11/30/2020 Telephone [place] [phone] Judith Reinoso MD [facility] [place] [place] [address] Social History Tobacco Use Types Packs/Day Years [...] AM EDT TH Visit (TeleHealth) [place] [address] Wyatt Higgins MD [facility] [place] [address] documented as of this encounter Visit Diagnoses Not on filedocumented in this encounter Care Teams Director Consumer Affairs Relationship Specialty Start Date End Date Ruth Munoz, MANAGER HOTEL [address] [place] [address] PCP - General Family Medicine 02/05/19 documented as of this encounter
--- OUTSIDE RECORDS SUMMARY | 2024-09-18 16:10 | XMS_ITS | Encounter Summary ---
[place] [address] Care Team Providers Care Slitter Operator Name Role Phone MunozRuth jerome Lilibeth JUAREZ Primary Care Provider + Reason for Visit * Reason Onset Date Comments Medication Refill 2020 Encounter Details Date Type Department Care Team (Late st Contact Info) Description 2020 Refill [place] [address] Randee López APRN [facility] [place] [address] Social History Tobacco Use Types Packs/Day Years [...] AM EDT TH Visit (TeleHealth) [place] [address] Wyatt Higgins MD [facility] [place] [address] documented as of this encounter Visit Diagnoses Not on filedocumented in this encounter Care Teams Slitter Operator Relationship Specialty Start Date End Date Ruth Munoz APRN [address] [place] [address] PCP - General Family Medicine 02/05/19 documented as of this encounter
--- OUTSIDE RECORDS SUMMARY | 2024-09-18 16:10 | XMS_ITS | Encounter Summary ---
Author Organization [facility] [place] [address] Care Team Providers Care Investment Banking Manager Name Role Phone Ruth Munoz LARRY Primary Care Provider + Encounter Details Date Type Department Care Team (Late st Contact Info) Description 08/13/2020 4:30 PM EDT Office Visit Dermatology at [address] [place] [phone] Galdino Gilliland MD [address] [facility] [facility] [place]MATOLOGY [place], [place] [id number] Psoriasis Social History Tobacco Use Types Packs/Day [...] AM EDT TH Visit (TeleHealth) [place] [address] Wyatt Higgins MD [facility] [place] [address] documented as of this encounter Visit Diagnoses Diagnosis Psoriasis Other psoriasis documented in this encounter Care Teams Investment Banking Manager Relationship Specialty Start Date End Date Ruth Munoz APRN [address] [place] [address] PCP - General Family Medicine 02/05/19 documented as of this encounter
--- OUTSIDE RECORDS SUMMARY | 2024-09-18 16:10 | XMS_ITS | Encounter Summary ---
[place] [address] Care Team Providers Care Leather Stripping Machine Operator Name Role Phone Ruth Munoz APRN Primary Care Provider + Encounter Details Date Type Department Care Team (Latest Contact Info) Description 05/31/2021 8:40 AM EDT Laboratory Appointment Lab [address] [place] [address] Status post bariatric surgery; Intestinal [...] AM EDT TH Visit (TeleHealth) [place] [address] Wyatt Higgins MD [facility] [place] [address] documented as of this encounter Procedures Procedure [...] obesity Dyslipidemia Chronic fatigue COMPREHENSIVE METABOLIC PANEL Routine 05/31/2021 8:48 AM EDT Type 2 diabetes mellitus, uncontrolled, with neuropathy Vitamin D deficiency Status post gastric bypass for obesity Dyslipidemia Chronic fatigue documented in this encounter Results * U Albumin/Cre Ratio (05/31/2021 8:55 AM EDT) Albumin / Creatinin Ratio, Urine 15 0 - 29 mcg/mg Cr [facility] Comment: Reference Ranges: <30 mcg/mg: [...] Supplements (2012) 2, 357? 362 Albumin, Urine 4.6 mg/L [facility] Creatinine, Urine 31 mg/dL [facility] Urine 05/31/2021 8:55 AM EDT 05/31/2021 9:04 AM EDT Narrative Resulting Agency Comment Spec In Lab Judith Reinoso MD URINE ORDERABLES Performing Organization Address City/[facility]/ZIP Co de Phone Number [facility] [place] [address] * (ABNORMAL) Differential, Automated (05/31/2021 8:48 AM EDT) Neutrophil % 57.6 % [facility] Neutrophil Absolute 6.04 1.70 - 6.10 x10(3)/mc L [facility] Lymph % 32.5 % [facility] Lymphocytes Abs 3.4(H) 0.9 - 3.2 x10(3)/mc L [facility] Monocyte % 6.3 % [facility] Monocyte Abs 0.7 0.3 - 0.9 x10(3)/mc L [facility] Eos % 2.2 % [facility] Eosinophils Abs 0.2 0.0 - 0.4 x10(3)/mc L [facility] Basophil % 1.0 % [facility] Baso Absolute 0.1 0.0 - 0.1 x10(3)/mc L [facility] Immature Gran % 0.40 % [facility] Comment: Immature granulocytes(IG's)percentage and absolute count will include metamyelocytes, myelocytes, and promyelocytes. Blood smears from CBCs yielding IG's will be scanned manually for concordance. If this scan disagrees with the automated IG or if promyelocytes are noted, a manual differential will be performed. Immature Gran Absolute 0.04 0.00 - 0.04 x10(3)/mc L [facility] Blood 05/31/2021 8:48 AM EDT 05/31/2021 8:54 AM EDT Narrative Resulting Agency Comment Spec In Lab Judith Reinoso MD HEMATOLOGY ORDERA BLES Performing Organization Address City/[facility]/ZIP Co de Phone Number [facility] [place] [address] * (ABNORMAL) Hemogram (05/31/2021 8:48 AM EDT) White Blood Cell 10.5(H) 4.0 - 9.5 x10(3)/ L [facility] Red Blood Cell 5.05 4.00 - 5.21 x10(6)/ L [facility] Hemoglobin 13.9 11.7 - 15.5 gm/dL [facility] Hematocrit 43.7 35.7 - 45.8 % [facility] Mean Cell Volume 86.5 82.6 - 94.[address] [facility] Mean Cell Hemoglobin 27.5 27.1 - 32.[address] [facility] Mean Cell Hemoglobin Concentration 31.8 31.7 - 35.0 gm/dL [facility] Platelet 282 145 - 357 x10(3)/[facility] RDW Standard Deviation 41.1 37.0 - 46.0 [facility] RDW coefficient of variation 13.2 11.5 - 14.1 % [facility] Mean Platelet Volume 10.4 7.6 - 12.[address] [facility] NRBC% auto 0.0 % [facility] NRBC Absolute 0.000 0.000 - 0.000 x10(3)/[facility] Blood 05/31/2021 8:48 AM EDT 05/31/2021 8:54 AM EDT Narrative Resulting Agency Comment Spec In Lab Judith Reinoso MD HEMATOLOGY ORDERA BLES [facility] [place] [address] * (ABNORMAL) Hemoglobin A1c (05/31/2021 8:48 AM EDT) Hemoglobin A1c 7.5(H) 4.3 - 5.6 % [facility] Comment: Reference Range: 4.3 - [...] Mellitus, Diabetes Care 2013; 36: Suppl. 1, V28-50 Estimated Average Glucose 168 mg/dL [facility] Comment: eAG equivalents for HbA1c [...] into estimated average glucose values. ??Diabetes Care 2008:31(8):3648-1409. Blood 05/31/2021 8:48 AM EDT 05/31/2021 8:54 AM EDT Narrative Resulting Agency Comment Spec In Lab Judith Reinoso MD CHEMISTRY ORDERAB LES [facility] [place] [address] * (ABNORMAL) TSH (05/31/2021 8:48 AM EDT) Thyroid Stimulating Hormone 4.31(H) 0.27 - 4.20 mcIU/mL [facility] Comment: Reference Interval (mcIU/mL): Females: ??First Trimester: 0.23-3.88 ??Second Trimester: 0.22-3.90 ??Third Trimester: 0.44-4.66 Blood 05/31/2021 8:48 AM EDT 05/31/2021 8:54 AM EDT Narrative Resulting Agency Comment Spec In Lab Judith Reinoso MD CHEMISTRY ORDERAB LES [facility] [place] [address] * (ABNORMAL) Comprehensive metabolic panel (non-fasting) (05/31/2021 8:48 AM EDT) Pathologist [facility] [place] Glucose 140 65 - 199 mg/dL [facility] Comment:Diabetes: >=200 mg/d L plus symptoms Blood Urea Nitrogen 10 8 - 18 mg/dL [facility] Creatinine 0.51(L) 0.70 - 1.20 mg/dL [facility] Sodium 144 135 - 145 mmol/L [facility] Potassium 4.8 3.5 - 5.0 mmol/L [facility] Comment: Please note: ??Patients with WBC >100,000 may have falsely elevated Potassium levels. ??For accurate Potassium quantification in these patients send serum separator tube (gold top) for subsequent determinations. ??Contact the Clinical Chemistry Laboratory if there are any questions. Chloride 105 98 - 107 mmol/L [facility] Carbon Dioxide 29 22 - 31 mmol/L [facility] Anion Gap 10 5 - 15 mmol/L [facility] Calcium 9.9 8.5 - 10.5 mg/dL [facility] Protein, Total 7.5 6.1 - 8.0 gm/dL [facility] Albumin 4.4 3.2 - 5.2 gm/dL [facility] Aspartate Aminotransferase 15 0 - 30 unit/L [facility] Alanine Aminotransferase 19 0 - 30 unit/L [facility] Alkaline Phosphatase 106(H) 35 - 105 unit/L [facility] Bilirubin, Total 0.3 0.2 - 1.3 mg/dL [facility] Est Glomerular Filtration Rate 107 >=60 mL/min/1. 73 m?? [facility] Comment: This patient? s estimated [...] Lab Judith Reinoso MD CHEMISTRY ORDERAB LES [facility] [place] [address] * Lipid Panel (Reflex Direct LDL) (05/31/2021 8:48 AM EDT) Pathologist [facility] [place] Cholesterol, Total 214 mg/dL [facility] Comment: Lower Risk: <200 mg/dL Average Risk: 200-239 mg/dL Higher Risk: >sw=970 mg/dL Triglyceride 184 mg/dL [facility] Comment: Average Risk/Lower Risk: <150 mg/dL Borderline High Risk: 150-199 mg/dL High Risk: 200-499 mg/dL Very High Risk: >lj=400 mg/dL HDL Cholesterol 58 mg/dL [facility] Comment: Males: ?? Higher Risk: <40 mg/dL Females: ?? Higher Risk: <50 mg/dL LDL Cholesterol 119 mg/dL [facility] Comment: Lowest Risk: <100 mg/dL Lower Risk: 100-129 mg/dL Borderline High Risk: 130-159 mg/dL High Risk: 160-189 mg/dL Very High Risk: >vt=370 mg/dL Cholesterol/HDL Ratio 3.[address] [facility] Lipid Interpretation See Note [facility] Comment: Lipid management should be guided by a patient? s ASCVD risk, goals and preferences. ACC/AHA Guidelines recommend high intensity statin if clinical ASCVD or LDL greater than or equal to 190 mg/dL. http://[employer].com/FDZ-OUH-Xwojyleuj Adults aged 40-75 with LDL 70-189 mg/dL should have their 10 year ASCVD risk estimated with the ACC/AHA ASCVD risk construction job cost estimator http://tools.acc.org/QNSKV-Noyd-Ixhhgvtym/ Statin should be discussed if risk greater [...] Lab Judith Reinoso MD CHEMISTRY ORDERAB LES [facility] [place] [address] * Vitamin D, 25-Hydroxy (05/31/2021 8:48 AM EDT) Vitamin D Total 25 OH 39 21 - 100 ng/mL [facility] Vit D Interp Sufficient [facility] Blood 05/31/2021 8:48 AM EDT 05/31/2021 8:54 AM EDT Narrative Resulting Agency Comment Spec In Lab Judith Reinoso MD CHEMISTRY ORDERAB LES Performing Organization Address City/[facility]/ZIP Co de Phone Number [facility] [place] [address] * Iron and TIBC (05/31/2021 8:48 AM EDT) Iron 77 30 - 150 mcg/dL [facility] TIBC 295 250 - 450 mcg/dL [facility] Iron Saturation 26 20 - 50 % [facility] Blood 05/31/2021 8:48 AM EDT 05/31/2021 8:54 AM EDT Narrative Resulting Agency Comment Spec In Lab Judith Reinoso MD CHEMISTRY ORDERAB LES Performing Organization Address City/[facility]/ZIP Co de Phone Number [facility] [place] [address] * (ABNORMAL) Vitamin B12 (05/31/2021 8:48 AM EDT) Vitamin B12 1,960(H) 232 - 1,245 pg/mL [facility] Blood 05/31/2021 8:48 AM EDT 05/31/2021 8:54 AM EDT Narrative Resulting Agency Comment Spec In Lab Judith Reinoso MD CHEMISTRY ORDERAB LES Performing Organization Address City/[facility]/ZIP Co de Phone Number [facility] [place] [address] * Folate, serum (05/31/2021 8:48 AM EDT) Folate >20.0 4.8 - 24.2 ng/mL [facility] Blood 05/31/2021 8:48 AM EDT 05/31/2021 8:54 AM EDT Narrative Resulting Agency Comment Spec In Lab Randee M Edison LARRY CHEMISTRY ORDERA BLES Performing Organization Address City/[facility]/ZIP Co de Phone Number [facility] [place] [address] * PTH (05/31/2021 8:48 AM EDT) Parathyroid Hormone 50 15 - 65 pg/mL [facility] Blood 05/31/2021 8:48 AM EDT 05/31/2021 8:54 AM EDT Narrative Resulting Agency Comment Spec In Lab Randee Mcelroy Edison GRADUATE TEACHING ASSISTANT CHEMISTRY ORDERA BLES Performing Organization Address [facility] Co de Phone Number [facility] [place] [address] documented in this encounter Visit Diagnoses Diagnosis [...] fatigue documented in this encounter Care Teams Leather Stripping Machine Operator Relationship Specialty Start Date End Date Ruth Munoz, GRADUATE TEACHING ASSISTANT [address] [place] [address] PCP - General Family Medicine 02/05/19 documented as of this encounter
--- OUTSIDE RECORDS SUMMARY | 2024-09-18 16:10 | XMS_ITS | Encounter Summary ---
Author Organization Pending Sale To [facility] Address [facility] [place] [address] Care Team Providers Care Condenser Cleaner Name Role Phone MunozAidan jeromeantony Mcelroy APRN Primary Care Provider + Encounter Details Date Type Department Care Team (Late st Contact Info) Description 09/23/2020 Orders [place] [phone] Yvonne Menchaca MD [facility] [place] [address] Status post bariatric surgery Social History Tobacco [...] AM EDT TH Visit (TeleHealth) [place] [phone] Wyatt Higgins MD [facility] [place] [address] documented as of this encounter Visit Diagnoses Diagnosis Status post bariatric surgery Bariatric surgery status documented in this encounter Care Teams Condenser Cleaner Relationship Specialty Start Date End Date Ruth Munoz APRN [address] [place] [address] PCP - General Family Medicine 02/05/19 documented as of this encounter
--- OUTSIDE RECORDS SUMMARY | 2024-09-18 16:10 | XMS_ITS | Encounter Summary ---
Author Organization [facility] [place] [address] Care Team Providers Care Engineering Surveyor Name Role Phone MunozRuth jerome Lilibeth JUAREZ Primary Care Provider + Reason for Visit * Reason Comments Medication Refill Encounter Details Date Type Department Care Team (Late st Contact Info) Description 09/01/2020 [place] [phone] Judith Reinoso MD [facility] [place] [address] Social History Tobacco Use Types Packs/Day Years [...] AM EDT TH Visit (Tele[place] [phone] Wyatt Higgins MD [facility] [place] [address] documented as of this encounter Visit Diagnoses Not on filedocumented in this encounter Care Teams Engineering Surveyor Relationship Specialty Start Date End Date Ruth Munoz APRN [address] [place] [address] PCP - General Family Medicine 02/05/19 documented as of this encounter
--- OUTSIDE RECORDS SUMMARY | 2024-09-18 16:10 | XMS_ITS | Encounter Summary ---
Author Organization [facility] [place] [address] Care Team Providers Care Bleaching Supervisor Name Role Phone MunozRuth jerome Lilibeth JUAREZ Primary Care Provider + Reason for Visit * Reason Comments Medication Refill Encounter Details Date Type Department Care Team (Late st Contact Info) Description 07/17/2021 [place] [phone] Judith Reinoso MD [facility] [place] [address] Social History Tobacco Use Types Packs/Day Years [...] AM EDT TH Visit (TeleHealth) [place] [phone] Wyatt Higgins MD [facility] [place] [address] documented as of this encounter Visit Diagnoses Not on filedocumented in this encounter Care Teams Bleaching Supervisor Relationship Specialty Start Date End Date Ruth Munoz APRN [address] [place] [address] PCP - General Family Medicine 02/05/19 documented as of this encounter
--- OUTSIDE RECORDS SUMMARY | 2024-09-18 16:10 | XMS_ITS | Encounter Summary ---
Author Organization [facility] [place] [address] Care Team Providers Care Nutrition Educator Name Role Phone AlexanderAidanantony Mcelroy APRN Primary Care Provider + Encounter Details Date Type Department Care Team (Latest Contact Info) Description 2020 10:00 AM EST TH Visit (TeleHealth) [place] [address] Judith Reinoso MD [facility] [place] [address] Type 2 diabetes mellitus, uncontrolled, with neuropathy; [...] D 50,000 iu weekly and 2 of [place] MVI with iron which contains iron (she [...] Jo Jones : 1965 Date: 2020 PCP: Ruth Munoz APRN Reason for visit: [...] and is pending for lab results at [facility]. She has been taking [place] multivitamin to 2 tab daily with normal [...] file Gets together: Not on file Attends anglican service: Not on file Active member of [...] D 50,000 iu weekly and 2 of [place] MVI with iron which contains iron (she [...] EDT TH Visit (TeleHealth) [place] [address] Wyatt Higgins MD [facility] [place] [address] documented as of this encounter Results * U Albumin/Cre Ratio (05/31/2021 8:55 AM EDT) Albumin / Creatinin Ratio, Urine 15 0 - 29 mcg/mg Cr [facility] Comment: Reference Ranges: <30 mcg/mg: [...] 2, 357? 362 Albumin, Urine 4.6 mg/L [facility] Creatinine, Urine 31 mg/dL [facility] Urine 05/31/2021 8:55 AM EDT 05/31/2021 9:04 AM EDT Narrative Resulting Agency Comment Spec In Lab Judith Reinoso MD URINE ORDERABLES Performing Organization Address City/[facility]/ZIP Co de Phone Number [facility] [place] [address] * (ABNORMAL) Vitamin B12 (05/31/2021 8:48 AM EDT) Vitamin B12 1,960(H) 232 - 1,245 pg/mL [facility] Blood 05/31/2021 8:48 AM EDT 05/31/2021 8:54 AM EDT Narrative Resulting Agency Comment Spec In Lab Judith Reinoso MD CHEMISTRY ORDERAB LES Performing Organization Address [facility] Co de Phone Number [facility] [place] [address] * Iron and TIBC (05/31/2021 8:48 AM EDT) Iron 77 30 - 150 mcg/dL [facility] TIBC 295 250 - 450 mcg/dL [facility] Iron Saturation 26 20 - 50 % [facility] Blood 05/31/2021 8:48 AM EDT 05/31/2021 8:54 AM EDT Narrative Resulting Agency Comment Spec In Lab Judith Reinoso MD CHEMISTRY ORDERAB LES Performing Organization Address City/[facility]/ZIP Co de Phone Number [facility] [place] [address] * Vitamin D, 25-Hydroxy (05/31/2021 8:48 AM EDT) Vitamin D Total 25 OH 39 21 - 100 ng/mL [facility] Vit D Interp Sufficient [facility] Blood 05/31/2021 8:48 AM EDT 05/31/2021 8:54 AM EDT Narrative Resulting Agency Comment Spec In Lab Judith Reinoso MD CHEMISTRY ORDERAB LES [facility] [place] [address] * Lipid Panel (Reflex Direct LDL) (05/31/2021 8:48 AM EDT) Cholesterol, Total 214 mg/dL Lilibeth [facility] Comment: Lower Risk: <200 mg/dL Average Risk: 200-239 mg/dL Higher Risk: >nu=296 mg/dL Triglyceride 184 mg/dL [facility] Comment: Average Risk/Lower Risk: <150 mg/dL Borderline High Risk: 150-199 mg/dL High Risk: 200-499 mg/dL Very High Risk: >oo=905 mg/dL HDL Cholesterol 58 mg/dL [facility] Comment: Males: ?? Higher Risk: <40 mg/dL Females: ?? Higher Risk: <50 mg/dL LDL Cholesterol 119 mg/dL [facility] Comment: Lowest Risk: <100 mg/dL Lower Risk: 100-129 mg/dL Borderline High Risk: 130-159 mg/dL High Risk: 160-189 mg/dL Very High Risk: >cj=632 mg/dL Cholesterol/HDL Ratio 3.7 ratio [facility] Lipid Interpretation See Note [facility] Comment: Lipid management should be guided by a patient? s ASCVD risk, goals and preferences. ACC/AHA Guidelines recommend high intensity statin if clinical ASCVD or LDL greater than or equal to 190 mg/dL. http://[employer].com/YTH-XCN-Fooebdcnu Adults aged 40-75 with LDL 70-189 mg/dL should have their 10 year ASCVD risk estimated with the ACC/AHA ASCVD risk upholstery estimator http://tools.acc.org/ACGOZ-Zkjk-Olyhtnsnz/ Statin should be discussed if risk greater [...] Lab Judith Reinoso MD CHEMISTRY ORDERAB LES [facility] [place] [address] * (ABNORMAL) Comprehensive metabolic panel (non-fasting) (05/31/2021 8:48 AM EDT) Glucose 140 65 - 199 mg/dL [facility] Comment:Diabetes: >=200 mg/d L plus symptoms Blood Urea Nitrogen 10 8 - 18 mg/dL [facility] Creatinine 0.51(L) 0.70 - 1.20 mg/dL [facility] Sodium 144 135 - 145 mmol/L [facility] Potassium 4.8 3.5 - 5.0 mmol/L [facility] Comment: Please note: ??Patients with WBC >100,000 may have falsely elevated Potassium levels. ??For accurate Potassium quantification in these patients send serum separator tube (gold top) for subsequent determinations. ??Contact the Clinical Chemistry Laboratory if there are any questions. Chloride 105 98 - 107 mmol/L [facility] Carbon Dioxide 29 22 - 31 mmol/L [facility] Anion Gap 10 5 - 15 mmol/L [facility] Calcium 9.9 8.5 - 10.5 mg/dL [facility] Protein, Total 7.5 6.1 - 8.0 gm/dL [facility] Albumin 4.4 3.2 - 5.2 gm/dL [facility] Aspartate Aminotransferase 15 0 - 30 unit/L [facility] Alanine Aminotransferase 19 0 - 30 unit/L [facility] Alkaline Phosphatase 106(H) 35 - 105 unit/L [facility] Bilirubin, Total 0.3 0.2 - 1.3 mg/dL [facility] Est Glomerular Filtration Rate 107 >=60 mL/min/1. 73 m?? [facility] Comment: This patient? s estimated [...] MD CHEMISTRY ORDERAB LES Performing Organization Address [facility] Co de Phone Number [facility] [place] [address] * (ABNORMAL) TSH (05/31/2021 8:48 AM EDT) Thyroid Stimulating Hormone 4.31(H) 0.27 - 4.20 mcIU/mL [facility] Comment: Reference Interval (mcIU/mL): Females: ??First Trimester: 0.23-3.88 ??Second Trimester: 0.22-3.90 ??Third Trimester: 0.44-4.66 Blood 05/31/2021 8:48 AM EDT 05/31/2021 8:54 AM EDT Narrative Resulting Agency Comment Spec In Lab Judith Reinoso MD CHEMISTRY ORDERAB LES Performing Organization Address City/[facility]/ZIP Co de Phone Number [facility] [place] [address] * (ABNORMAL) Hemoglobin A1c (05/31/2021 8:48 AM EDT) Hemoglobin A1c 7.5(H) 4.3 - 5.6 % [facility] Comment: Reference Range: 4.3 - [...] 36: Suppl. 1, S67-74 Estimated Average Glucose 168 mg/dL [facility] Comment: eAG equivalents [...] into estimated average glucose values. ??Diabetes Care 2008:31(8):3738-7496. Blood 05/31/2021 8:48 AM EDT 05/31/2021 8:54 AM EDT Narrative Resulting Agency Comment Spec In Lab Judith Reinoso MD CHEMISTRY ORDERAB LES [facility] [place] [address] documented in this encounter Visit Diagnoses Diagnosis Type 2 diabetes mellitus, uncontrolled, with neuropathy Type II or unspecified type diabetes mellitus with neurological manifestations, uncontrolled Vitamin D deficiency Unspecified vitamin D deficiency Status post gastric bypass for obesity Bariatric surgery status Dyslipidemia Other and unspecified hyperlipidemia Chronic fatigue Other malaise and fatigue documented in this encounter Care Teams Nutrition Educator Relationship Specialty Start Date End Date Ruth Munoz, RADIOLOGY SPECIALIST [address] [place] [address] PCP - General Family Medicine 02/05/19 documented as of this encounter
--- OUTSIDE RECORDS SUMMARY | 2024-09-18 16:10 | XMS_ITS | Encounter Summary ---
Author Organization [facility] [place] [address] Care Team Providers Care Fingerprint Technician Name Role Phone Ruth Munoz Lilibeth JUAREZ Primary Care Provider + Encounter Details Date Type Department Care Team (Late st Contact Info) Description 03/11/2021 Telephone Dermatology at [place] [address] [facility] [place] [address] Galdino Gilliland MD [address] [facility] [place] [address] DERMATOLOGY [place], [place] [id number] Social History Tobacco Use Types Packs/Day Years [...] Notes * Telephone Encounter - Katia French - 03/11/2021 8:32 AM EDT Patient contacted the clinic today (03/11) with questions regarding her AVS from her visit on 03/08. Patient is specifically concerned that her instructions [...] taking the injection. Please contact patient at [phone] to discuss concerns. documented in this encounter Plan of Treatment Upcoming Encounters Date Type Department Care Team (Late st Contact Info) Description 02/19/2025 9:00 AM EDT TH Visit (TeleHealth) [place] [address] Wyatt Higgins MD [facility] [place] [address] documented as of this encounter Visit Diagnoses Not on filedocumented in this encounter Care Teams Fingerprint Technician Relationship Specialty Start Date End Date Ruth Munoz APRN [address] [place] [address] PCP - General Family Medicine 02/05/19 documented as of this encounter
--- OUTSIDE RECORDS SUMMARY | 2024-09-18 16:11 | XMS_ITS | Encounter Summary ---
Author Organization [facility] Address [facility] [place] [address] Care Team Providers Care Section Beamer Name Role Phone Ruth Munoz APRN Primary Care Provider + Reason for Referral * Physical Therapy (Routine) - Specialty Diagnoses / Procedures Referred By Patricio monsivais Referred To Contact Physical Therapy Diagnoses Polyneuropathy Pérez Ferreira MD [facility] [place] [address] Referral ID Status Reason Start Date Expiration Date V isits Requested Visits Authorized [id number] Evaluate and Treat 02/14/2019 08/13/2019 12 12 Reason for Visit * Reason Onset Date Comments Other 02/14/2019 Encounter Details Date Type Department Care Team (Late st Contact Info) Description 02/14/2019 Tele[place] [address] Pérez Ferreira MD [facility] DR NEUROLOGY DEPT [place], [place] [id number] Other Social History Tobacco Use Types Packs/Day [...] of the plan. PT referral faxed to [facility] PT. * Telephone Encounter - Sonam [...] Brown - 02/14/2019 10:18 AM EDT Clinical Pants Closer Message Caller: Martha Felix not Pt / Relation to pt: Call back Number: [phone] Best time to reach caller: Anytime Reason for call: Needing a order for a wheelchair. Message/information for the nurse: [facility] informed her that she is needing her [...] AM EDT TH Visit (TeleHealth) [place] [address] Wyatt Higgins MD [facility] [place] [address] Scheduled Referrals Name Type Priority Associated Diagnoses Orde r Schedule Referral to Physical Therapy Outpatient Referral Routine Polyneuropathy Ordered: 02/14/2019 documented as of this encounter Visit Diagnoses Diagnosis Polyneuropathy Unspecified hereditary and idiopathic peripheral neuropathy documented in this encounter Care Teams Section Beamer Relationship Specialty Start Date End Date Ruth Munoz APRN [address] [place] [address] PCP - General Family Medicine 02/05/19 documented as of this encounter
--- OUTSIDE RECORDS SUMMARY | 2024-09-18 16:11 | XMS_ITS | Encounter Summary ---
Author Organization [facility] [place] [address] Care Team Providers Care Negative Developer Name Role Phone AlexanderAidanantony Mcelroy APRN Primary Care Provider + Encounter Details Date Type Department Care Team (Late st Contact Info) Description 02/05/2019 2:30 PM EDT Office Visit [place] [address] Judith Reinoso MD [facility] [place] [address] Dysuria; Type 2 diabetes, controlled, with neuropathy [...] this encounter Patient Instructions * Patient Instructions* Juidth Reinoso MD - 02/05/2019 2:30 PM EDT Recent [...] 50,000 iu 1x/week and cont 2 of [place] MVI with iron which contains iron (she [...] Progress Notes * Judith Reinoso MD - 02/05/2019 2:30 PM EDT Endocrine Clinic Name: Martha Benoit : 1965 Date: 02/05/2019 PCP: Ruth Munoz APRN Provided by: Judith Reinoso MD Reason for visit: Follow-up type 2 [...] foot ulcer since last Aug 2018, seen sign hanger supervisor monthly plus VNA weekly. Otherwise, she has [...] 2017=> 42 today. She has been taking [place] multivitamin to 2 tab daily with normal [...] on phone: None Gets together: None Attends gnosticist service: None Active member of club or [...] 50,000 iu 1x/week and cont 2 of [place] MVI with iron which contains iron (she [...] Addendum Note - Judith Reinoso MD - 02/05/2019 2:30 PM EDTAddended by: JUDITH REINOSO on: 02/07/2019 11:58 AM Modules accepted: Orders * Addendum Note - Judith Reinoso MD - 02/05/2019 2:30 PM EDTAddended by: JUDITH REINOSO on: 07/11/2019 05:29 PM Modules accepted: Orders documented in this encounter Plan of Treatment Upcoming Encounters Date Type Department Care Team (Late st Contact Info) Description 02/19/2025 9:00 AM EDT TH Visit (TeleHealth) [place] [address] Wyatt Higgins MD [facility] [place] [address] documented as of this encounter Results * (ABNORMAL) Hemoglobin A1c (07/11/2019 5:46 PM EDT) [facility] Hemoglobin A1c 7.3(H) 4.3 - 5.6 % [facility] Comment: Reference Range: 4.3 [...] 36: Suppl. 1, S67-74 Estimated Average Glucose 162 mg/dL [facility] Comment: eAG [...] into estimated average glucose values. ??Diabetes Care 2008:31(8):2520-0991. Blood specimen (specimen) 07/11/2019 5:46 PM EDT 07/11/2019 5:55 PM EDT Narrative Resulting Agency Comment Spec In Lab Judith Reinoso MD CHEMISTRY ORDERAB LES Performing Organization Address City/State/[facility] Co de Phone Number [facility] [place] [phone] documented in this encounter Visit Diagnoses Diagnosis Dysuria Type 2 diabetes, controlled, with neuropathy Type II or unspecified type diabetes mellitus with neurological manifestations, not stated as uncontrolled documented in this encounter Care Teams Negative Developer Relationship Specialty Start Date End Date Ruth Munoz APRN [address] [place] [address] PCP - General Family Medicine 02/05/19 documented as of this encounter
--- OUTSIDE RECORDS SUMMARY | 2024-09-18 16:11 | XMS_ITS | Encounter Summary ---
[place] [address] Care Team Providers Care Meteorologist In Charge Name Role Phone Ruth Munoz APRN Primary Care Provider + Reason for Referral * Consultation (Routine) - Denied Specialty Diagnoses / Procedures Referred By Patricio monsivais Referred To Contact Rheumatology Diagnoses Neuropathy Prince Sorensen MD [facility] [place] [address] [facility] [address] [place] [address] Referral ID Status Reason Start Date Expiration Date V isits Requested Visits Authorized [id number] Denied Consult, Test & Treat 07/25/2019 07/24/2020 1 0 Encounter Details Date Type Department Care Team (Late st Contact Info) Description 07/25/2019 1:00 PM EDT [place] [phone] Wyatt Higgins MD [facility] [place] [address] Prince Sorensen MD [facility] [place] [address] Neuropathy Social History Tobacco Use Types Packs/Day [...] She was last seen by neurology at [facility] in January 2019. Patient states she thinks [...] to live with their single father in [place] where their father used to work in [...] Julio Cesar Wright suggested lumbar puncture in [place] -if high protein, may need IVIG therapy or try two days of high dose steroid therapy ??? Preoperative Class III obesity BMI 43, S/P gastric bypass 01/04/16 Overview Note: Bariatric Surgery Program 1. Attended Introduction to the [facility] Bariatric Surgery Program seminar, a comprehensive two hour meeting that provides a program overview, education on bariatric surgeries offered at [facility], risks andbenefits, as well as patient expectations and follow up: 08/05/14. [facility] BSP Educational seminars viewed: 3. Grades on post-testin-100%. The BSP Educational Handbook is provided at preoperative visit #1. 2. Pre-operative programmatic evaluations required: PCP evaluation and letter of support to proceedwith surgery, BSP labwork (can be done on day of visit #1) and psychological evaluation- minimum of2 visits. 3. Bariatric Surgery Program evaluations with RD and CANDLE MOLDER: 11/03/15 4. Weight history: 198 pounds on 08/25/04, 207 pounds on 03/20/09, 249 pounds on 07/01/14, 253 pounds on 02/20/15 5. Gallbladder status: 6. Insurer specific requirements: [place] medicaid- 3 months of supervised counseling 7. BSP Team meeting discussion: no Post surgery course: 1. Admitted to [facility] on 01/24/16 with nausea and vomiting, failure to progress diet.Transfer to [facility] on 01/25/16 ??? Vitamin D deficiency Overview [...] ureteral stone extraction Jul - [facility] [place] ??? Chronic foot pain-s/p heel spur surgeries [...] likely. She did undergo genetic testing with [employer] comprehensive neuropathy panel in 2017 which was [...] -I will personally call genetic counselor of [employer] and ask them more about the uncertain [...] Prince Sorensen MD Clinical Neurophysiology Fellow Pager: [phone] 07/25/2019 Neurology Staff Note I have reviewed [...] AM EDT TH Visit (TeleHealth) [place] [address] Wyatt Higgins MD [facility] [place] [address] Scheduled Referrals Name Type Priority Associated Diagnoses Order Schedule Referral to Rheumatology Outpatient Referral Routine Neuropathy Ordered: 07/25/2019 documented as of this encounter Procedures Procedure Name Priority Date/Time Associated Diagnosis Comments HC VENIPUNCTURE Routine 07/25/2019 2:45 PM EDT Neuropathy documented in this encounter Results * Ganglioside Antibodies (07/25/2019 2:45 PM EDT) Ganglioside Antibodies See Scan Report [facility] Comment:Test performed by [facility], [address] [place] [id number] Blood specimen (specimen) 07/25/2019 2:45 PM EDT 07/26/2019 12:02 PM EDT Narrative Resulting Agency Comment Spec In Lab Wyatt Higgins MD LAB SEND OUT ORDERAB LES [facility] [place] [address] documented in this encounter Visit Diagnoses Diagnosis Neuropathy Mononeuritis of unspecified site documented in this encounter Care Teams Meteorologist In Charge Relationship Specialty Start Date End Date Ruth Munoz, ALUMNI RELATIONS COORDINATOR [address] [place] [address] PCP - General Family Medicine 02/05/19 documented as of this encounter
--- OUTSIDE RECORDS SUMMARY | 2024-09-18 16:11 | XMS_ITS | Encounter Summary ---
[place] [address] Care Team Providers Care Fishing Gear Mechanic Name Role Phone MunozRuth jerome LARRY Primary Care Provider + Encounter Details Date Type Department Care Team (Late st Contact Info) Description 02/07/2019 Tele[place] [phone] Lauren Fowler RN Social History Tobacco Use [...] AM EDT TH Visit (TeleHealth) [place] [address] Wyatt Higgins MD [facility] [place] [address] documented as of this encounter Visit Diagnoses Not on filedocumented in this encounter Care Teams Fishing Gear Mechanic Relationship Specialty Start Date End Date Ruth Munoz APRN [address] [place] [address] PCP - General Family Medicine 02/05/19 documented as of this encounter
--- OUTSIDE RECORDS SUMMARY | 2024-09-18 16:11 | XMS_ITS | Encounter Summary ---
[place] [address] Care Team Providers Care Vocational Adviser Name Role Phone MunozRuth jerome Lilibeth JUAREZ Primary Care Provider + Encounter Details Date Type Department Care Team (Late st Contact Info) Description 02/11/2019 Telephone [place] [phone] Nany Pryor RN Social History Tobacco Use [...] AM EDT TH Visit (TeleHealth) [place] [address] Wyatt Higgins MD [facility] [place] [address] documented as of this encounter Visit Diagnoses Not on filedocumented in this encounter Care Teams Vocational Adviser Relationship Specialty Start Date End Date Ruth Munoz APRN [address] [place] [address] PCP - General Family Medicine 02/05/19 documented as of this encounter
--- OUTSIDE RECORDS SUMMARY | 2024-09-18 16:11 | XMS_ITS | Encounter Summary ---
Author Organization [facility] [place] [address] Care Team Providers Care Wax Pattern Assembler Name Role Phone AlexanderRuth Lilibeth JUAREZ Primary Care Provider + Reason for Visit * Reason Onset Date Comments Follow-up 01/21/2020 Encounter Details Date Type Department Care Team (Late st Contact Info) Description 01/21/2020 Telephone [place] [address] Cathy Dillon APRN [facility] [place] [address] Follow-up Social History Tobacco Use Types Packs/Day [...] was denied by her insurer. Her primary caretaker resort was able to secure an authorization for the brand name vitamin. documented in this encounter Plan of Treatment Upcoming Encounters Date Type Department Care Team (Late st Contact Info) Description 02/19/2025 9:00 AM EDT TH Visit (TeleHealth) [place] [address] Wyatt Higgins MD [facility] [place] [address] documented as of this encounter Visit Diagnoses Not on filedocumented in this encounter Care Teams Wax Pattern Assembler Relationship Specialty Start Date End Date Ruth Munoz, SUPERVISOR SLITTING AND SHIPPING [address] [place] [address] PCP - General Family Medicine 02/05/19 documented as of this encounter
--- OUTSIDE RECORDS SUMMARY | 2024-09-18 16:11 | XMS_ITS | Encounter Summary ---
Author Organization [facility] [place] [address] Care Team Providers Care Ticket Sales Supervisor Name Role Phone MunozRuth jerome Lilibeth JUAREZ Primary Care Provider + Encounter Details Date Type Department Care Team (Late st Contact Info) Description 02/11/2019 Orders [place] [phone] Cathy Dillon APRN [facility] [place] [address] Social History Tobacco Use Types Packs/Day Years [...] AM EDT TH Visit (TeleHealth) [place] [address] Wyatt Higgins MD [facility] [place] [address] documented as of this encounter Visit Diagnoses Not on filedocumented in this encounter Care Teams Ticket Sales Supervisor Relationship Specialty Start Date End Date Ruth Munoz APRN [address] [place] [address] PCP - General Family Medicine 02/05/19 documented as of this encounter
--- OUTSIDE RECORDS SUMMARY | 2024-09-18 16:11 | XMS_ITS | Encounter Summary ---
[place] [address] Care Team Providers Care Business Machines Teacher Name Role Phone Ruth Munoz Lilibeth JUAREZ Primary Care Provider + Reason for Visit * Reason Comments Medication Management Encounter Details Date Type Department Care Team (Late st Contact Info) Description 05/14/2020 Specialty [place] [address] Sravanthi Cardoza RPH Social History Tobacco Use [...] Upcoming Encounters Date Type Department Care Team ([facility] Contact Info) Description 02/19/2025 9:00 AM EDT TH Visit (TeleHealth) [place] [address] Wyatt Higgins MD [facility] [place] [address] documented as of this encounter Visit Diagnoses Not on filedocumented in this encounter Care Teams Business Machines Teacher Relationship Specialty Start Date End Date Ruth Munoz APRN [address] [place] [address] PCP - General Family Medicine 02/05/19 documented as of this encounter
--- OUTSIDE RECORDS SUMMARY | 2024-09-18 16:11 | XMS_ITS | Encounter Summary ---
[place] [address] Care Team Providers Care Tool Maker Name Role Phone MunozRuth jerome LARRY Primary Care Provider + Reason for Visit * Reason Onset Date Comments Medication Refill 08/20/2019 Encounter Details Date Type Department Care Team (Late st Contact Info) Description 08/20/2019 Ref[place] [address] Lauren Fowler RN Social History Tobacco Use [...] the original note were not included. Judith Serrnao MD to [facility] [place] Nurse ?? 08/20/19 3:04 PM Note Ok to prescribe 10 mg BID for her to keep A1c down. Thanks! JUDITH SERRANO MD ?? documented in this encounter Plan of Treatment Upcoming Encounters Date Type Department Care Team (Late st Contact Info) Description 02/19/2025 9:00 AM EDT TH Visit (TeleHealth) [place] [address] Wyatt Higgins MD [facility] [place] [place] [address] documented as of this encounter Visit Diagnoses Not on filedocumented in this encounter Care Teams Tool Maker Relationship Specialty Start Date End Date Ruth Munoz, AIRCRAFT MECHANIC [address] [place] [address] PCP - General Family Medicine 02/05/19 documented as of this encounter
--- OUTSIDE RECORDS SUMMARY | 2024-09-18 16:11 | XMS_ITS | Encounter Summary ---
[place] [address] Care Team Providers Care Glove Boarder Name Role Phone MunozRuth jerome Lilibeth JUAREZ Primary Care Provider + Encounter Details Date Type Department Care Team (Late st Contact Info) Description 02/24/2020 Telephone Dermatology at [place] [address] [place] [address] Galdino Gilliland MD [address] [facility] [place] [address] Social History Tobacco Use Types Packs/Day Years [...] AM EDT TH Visit (TeleHealth) [place] [address] Wyatt Higgins MD [facility] [place] [address] documented as of this encounter Visit Diagnoses Not on filedocumented in this encounter Care Teams Glove Boarder Relationship Specialty Start Date End Date Ruth Munoz APRN [address] [place] [address] PCP - General Family Medicine 02/05/19 documented as of this encounter
--- OUTSIDE RECORDS SUMMARY | 2024-09-18 16:11 | XMS_ITS | Encounter Summary ---
[place] [address] Care Team Providers Care Packaging Line Operator Name Role Phone Ruth Munoz Lilibeth JUAREZ Primary Care Provider + Encounter Details Date Type Department Care Team (Late st Contact Info) Description 04/23/2019 Specialty Pharmacy [place] [phone] Sravanthi Cardoza RPH Social History Tobacco Use [...] [place] [address] [facility] [address] Telephone Information: Work Phone Not on file. Is the patient transferring services to a different Specialty Pharmacy or discontinuing the medication? Yes. Medication: Humira Reason for discontinuation or transfer: Patient did not start Humira due to a ocean transportation intermediary foot infection. She is still being monitored. [...] appointment and [facility] is[facility] (summary located at top of note) for provider review and follow up. Sravanthi Cardoza RPH 04/23/19 11:44 AM documented in this encounter Plan of Treatment Upcoming Encounters Date Type Department Care Team (Late st Contact Info) Description 02/19/2025 9:00 AM EDT TH Visit (TeleHealth) [place] [address] Wyatt Higgins MD [facility] [place] [address] documented as of this encounter Visit Diagnoses Not on filedocumented in this encounter Care Teams Packaging Line Operator Relationship Specialty Start Date End Date Ruth Munoz APRN [address] [place] [address] PCP - General Family Medicine 02/05/19 documented as of this encounter
--- OUTSIDE RECORDS SUMMARY | 2024-09-18 16:11 | XMS_ITS | Encounter Summary ---
[place] [address] Care Team Providers Care Global Logistics Analyst Name Role Phone MunozRuth jerome Lilibeth JUAREZ Primary Care Provider + Reason for Visit * Reason Comments Prior Authorization Cosentyx Sensoready (300mg) 150 SOAJ Encounter Details Date Type Department Care Team (Late st Contact Info) Description 05/14/2020 Specialty [place] [address] Louis Baeza, [facility] Social History Tobacco Use Types [...] requirements/notes: None Other Notes: None Case/Reference #: [id number] Approval notification Received via: Fax Copay: $ [...] EDT TH Visit (TeleHealth) [place] [address] Wyatt Higgins MD [facility] [place] [address] documented as of this encounter Visit Diagnoses Not on filedocumented in this encounter Care Teams Global Logistics Analyst Relationship Specialty Start Date End Date Ruth Munoz APRN [address] [place] [address] PCP - General Family Medicine 02/05/19 documented as of this encounter
--- OUTSIDE RECORDS SUMMARY | 2024-09-18 16:11 | XMS_ITS | Encounter Summary ---
Author Organization [facility] [place] [address] Care Team Providers Care Aesthetics Instructor Name Role Phone MunozRuth jerome Lilibeth JUAREZ Primary Care Provider + Reason for Visit * Reason Comments Medication Refill Encounter Details Date Type Department Care Team (Late st Contact Info) Description 09/11/2019 [place] [address] Cathy Dillon APRN [facility] [place] [address] Status post bariatric surgery; Intestinal malabsorption, unspecified [...] TH Visit (TeleHealth) [place] [address] Wyatt Higgins MD [facility] [place] [address] documented as of this encounter Visit Diagnoses Diagnosis Status post bariatric surgery Bariatric surgery status Intestinal malabsorption, unspecified type documented in this encounter Care Teams Aesthetics Instructor Relationship Specialty Start Date End Date Ruth Munoz, DEMAND EQUIPMENT REPAIRER [address] [place] [address] PCP - General Family Medicine 02/05/19 documented as of this encounter
--- OUTSIDE RECORDS SUMMARY | 2024-09-18 16:11 | XMS_ITS | Encounter Summary ---
[place] [address] Care Team Providers Care Button Buttonhole Marker Name Role Phone MunozRuth jerome Lilibeth JUAREZ Primary Care Provider + Encounter Details Date Type Department Care Team (Late st Contact Info) Description 02/18/2020 Telephone Dermatology at [address] [address] Benita Salazar LPN Social History [...] AM EDT TH Visit (TeleHealth) [place] [address] Wyatt Higgins MD [facility] [place] [address] documented as of this encounter Visit Diagnoses Not on filedocumented in this encounter Care Teams Button Buttonhole Marker Relationship Specialty Start Date End Date Ruth Munoz, COMMUNITY SUPPORT WORKER [address] [place] [address] PCP - General Family Medicine 02/05/19 documented as of this encounter
--- OUTSIDE RECORDS SUMMARY | 2024-09-18 16:11 | XMS_ITS | Encounter Summary ---
Author [facility] [place] [address] Care Team Providers Care Scrub Wheel Operator Name Role Phone MunozRuth jerome Lilibeth JUAREZ Primary Care Provider + Encounter Details Date Type Department Care Team (Late st Contact Info) Description 09/06/2019 [place] [address] Prince Sorensen MD [facility] [place] [address] Social History Tobacco Use Types Packs/Day Years [...] AM EDT TH Visit (TeleHealth[place] [address] Wyatt Higgins MD [facility] [place] [address] documented as of this encounter Visit Diagnoses Not on filedocumented in this encounter Care Teams Scrub Wheel Operator Relationship Specialty Start Date End Date Ruth Munoz APRN [address] [place] [address] PCP - General Family Medicine 02/05/19 documented as of this encounter
--- OUTSIDE RECORDS SUMMARY | 2024-09-18 16:11 | XMS_ITS | Encounter Summary ---
[facility] Organization [facility] [place] [address] Care Team Providers Care Diving Board Assembler Name Role Phone MunozRuth jerome Lilibeth JUAREZ Primary Care Provider + Reason for Visit * Reason Onset Date Comments Other 02/13/2019 Encounter Details Date Type Department Care Team (Late st Contact Info) Description 02/13/2019 Telephone [place] [address] Cathy Dillon APRN [facility] [place] [address] Other Social History Tobacco Use Types Packs/Day [...] * Telephone Encounter - Cathy Dillon - 02/13/2019 4:28 PM EDT Bariatric [...] EDT TH Visit (TeleHealth) [place] [address] Wyatt Higgins MD [facility] [place] [address] documented as of this encounter Visit Diagnoses Not on filedocumented in this encounter Care Teams Diving Board Assembler Relationship Specialty Start Date End Date Ruth Munoz APRN [address] [place] [address] PCP - General Family Medicine 02/05/19 documented as of this encounter
--- OUTSIDE RECORDS SUMMARY | 2024-09-18 16:11 | XMS_ITS | Encounter Summary ---
[place] [address] Care Team Providers Care Mig Tig Welder Name Role Phone Ruth Munoz Lilibeth JUAREZ Primary Care Provider + Reason for Visit * Reason Comments Medication Management Encounter Details Date Type Department Care Team (Late st Contact Info) Description 02/26/2020 Specialty [place] [address] Keena Mccoy RPH Social History Tobacco Use [...] as of this encounter Progress Notes * eKena Mccoy RPH - 02/26/2020 12:01 PM EDT Martha Benoit 2--64 called on Monday02/24/20 regarding her Humira and requested we change the Humira pens to the syringe formulation. The patient doesn???t like using auto-injectors because the injection is too painful for her. I requested this change to Dr. Gilliland in [facility] and hedenied this request because of a family history of IV drug use. I relayed this message to the patient and she told me she would break open the pens if she doesn???t receive syringes. I advised against this and referred her to the injection tutorial video on the manager marketing???s website. She still insisted that she would [...] AM EDT TH Visit (TeleHealth) [place] [address] Wyatt Higgins MD [facility] [place] [address] documented as of this encounter Visit Diagnoses Not on filedocumented in this encounter Care Teams Mig Tig Welder Relationship Specialty Start Date End Date Ruth Munoz APRN [address] [place] [address] PCP - General Family Medicine 02/05/19 documented as of this encounter
--- OUTSIDE RECORDS SUMMARY | 2024-09-18 16:11 | XMS_ITS | Encounter Summary ---
Author Organization [facility] [place] [address] Care Team Providers Care Allopathic Doctor Name Role Phone Ruth Munoz Lilibeth JUAREZ Primary Care Provider + Encounter Details Date Type Department Care Team (Late st Contact Info) Description 08/15/2019 11:30 AM EDT Laboratory Appointment Lab [address] [place] [phone] Neuropathy Social History Tobacco Use Types Packs/Day [...] AM EDT TH Visit (TeleHealth) [place] [phone] Wyatt Higgins MD [facility] [place] [address] documented as of this encounter Procedures Procedure Name Priority Date/Time Associated Diagnosis Comments OLIGOCLONAL BANDING BLOOD Routine 08/15/2019 11:12 AM EDT Neuropathy IGG INDEX BLOOD Routine 08/15/2019 11:12 AM EDT Neuropathy documented in this encounter Results * IgG Index Blood (08/15/2019 11:12 AM EDT) IgG Index Bld Hold Sample in lab. [facility] Blood specimen (specimen) 08/15/2019 11:12 AM EDT 08/15/2019 11:22 AM EDT Narrative Resulting Agency Comment Spec In Lab Wyatt Higgins MD CHEMISTRY ORDERABLES Performing Organization Address City/[facility]/ZIP Co de Phone Number [facility] [place] [address] * Oligoclonal Banding Blood (08/15/2019 11:12 AM EDT) Olig Band Bld Hold Sample in lab. [facility] Blood specimen (specimen) 08/15/2019 11:12 AM EDT 08/15/2019 11:22 AM EDT Narrative Resulting Agency Comment Spec In Lab Wyatt Higgins MD CHEMISTRY ORDERABLES Performing Organization Address City/[facility]/ZIP Co de Phone Number [facility] [place] [address] documented in this encounter Visit Diagnoses Diagnosis Neuropathy Mononeuritis of unspecified site documented in this encounter Care Teams Allopathic Doctor Relationship Specialty Start Date End Date Ruth Munoz APRN [address] [place] [address] PCP - General Family Medicine 02/05/19 documented as of this encounter
--- OUTSIDE RECORDS SUMMARY | 2024-09-18 16:11 | XMS_ITS | Encounter Summary ---
[place] [address] Care Team Providers Care Automobile Repair Service Estimator Name Role Phone MunozRuth jerome Lilibeth JUAREZ Primary Care Provider + Encounter Details Date Type Department Care Team (Late st Contact Info) Description 08/20/2019 Telephone [place] [phone] Lauren Fowler RN Social History Tobacco Use [...] AM EDT TH Visit (TeleHealth) [place] [address] Wyatt Higgins MD [facility] [place] [address] documented as of this encounter Visit Diagnoses Diagnosis Type 2 diabetes, controlled, with neuropathy Type II or unspecified type diabetes mellitus with neurological manifestations, not stated as uncontrolled Vitamin D deficiency Unspecified vitamin D deficiency documented in this encounter Care Teams Automobile Repair Service Estimator Relationship Specialty Start Date End Date Ruth Munoz, POSTAL TRANSPORTATION CLERK [address] [place] [address] PCP - General Family Medicine 02/05/19 documented as of this encounter
--- OUTSIDE RECORDS SUMMARY | 2024-09-18 16:11 | XMS_ITS | Encounter Summary ---
[place] [address] Care Team Providers Care Clerk Rating Name Role Phone MunozAidan jeromeantony Mcelroy APRN Primary Care Provider + Encounter Details Date Type Department Care Team (Latest Contact Info) Description 07/11/2019 5:25 PM EDT Laboratory Appointment Lab [address] [place] [address] Type 2 diabetes mellitus with diabetic neuropathy, unspecified whether detention insulin use; Iron deficiency; Disorder of iron [...] AM EDT TH Visit (TeleHealth) [place] [address] Wyatt Higgins MD [facility] [place] [address] documented as of this encounter Procedures Procedure Name Priority Date/Time Associated Diagnosis Comments HC HEMOGRAM Routine 07/11/2019 5:46 PM EDT Iron deficiency Disorder of iron metabolism HC IRON BINDING CAPACITY Routine 07/11/2019 5:46 PM EDT Iron deficiency Disorder of iron metabolism HC VENIPUNCTURE Routine 07/11/2019 5:46 PM EDT Type 2 diabetes mellitus with diabetic neuropathy, unspecified whether meterman insulin use HC HEMOGLOBIN A1C Routine 07/11/2019 5:4 6 PM EDT Type 2 diabetes, controlled, with neuropathy HC FERRITIN, SERUM Routine 07/11/2019 5: 46 PM EDT Iron deficiency Disorder of iron metabolism documented in this encounter Results * (ABNORMAL) Hemoglobin A1c (07/11/2019 5:46 PM EDT) Hemoglobin A1c 7.3(H) 4.3 - 5.6 % [facility] [...] Mellitus, Diabetes Care 2013; 36: Suppl. 1, M57-17 Estimated Average Glucose 162 mg/dL [facility] Comment: eAG equivalents for [...] into estimated average glucose values. ??Diabetes Care 2008:31(8):4749-6970. Blood specimen (specimen) 07/11/2019 5:46 PM EDT 07/11/2019 5:55 PM EDT Narrative Resulting Agency Comment Spec In Lab Judith Reinoso MD CHEMISTRY ORDERAB LES Performing Organization Address [facility] Co de Phone Number [facility] [place] [address] * (ABNORMAL) Iron and TIBC (07/11/2019 5:46 PM EDT) Iron 38 30 - 150 mcg/dL [facility] TIBC 323 250 - 450 mcg/dL [facility] Iron Saturation 12(L) 20 - 50 % [facility] Blood specimen (specimen) 07/11/2019 5:46 PM EDT 07/11/2019 5:55 PM EDT Narrative Resulting Agency Comment Spec In Lab Cathy Dillon APRN CHEMISTRY ORDERAB LES Performing Organization Address City/[facility] Co de Phone Number [facility] [place] [address] * Ferritin (07/11/2019 5:46 PM EDT) [facility] Ferritin 34 30 - 400 ng/mL [facility] Comment: Pediatric reference ranges not verified at [facility], interpret with caution. Reference ranges for females greater than 50 years of age approach values for men, i.e., 30-400 ng/mL. Blood specimen (specimen) 07/11/2019 5:46 PM EDT 07/11/2019 5:55 PM EDT Narrative Resulting Agency Comment Spec In Lab Cathy Dillon APRN CHEMISTRY ORDERAB LES [facility] [place] [address] * (ABNORMAL) Hemogram (07/11/2019 5:46 PM EDT) [facility] White Blood Cell 11.9(H) 4.0 - 9.5 x10(3)/mc L [facility] Red Blood Cell 5.08 4.00 - 5.21 x10(6)/mc L [facility] Hemoglobin 14.0 11.7 - 15.5 gm/dL [facility] Hematocrit 43.8 35.7 - 45.8 % [facility] Mean Cell Volume 86.2 82.6 - 94.4 fL [facility] Mean Cell Hemoglobin 27.6 27.1 - 32.0 pg [facility] Mean Cell Hemoglobin Concentration 32.0 31.7 - 35.0 gm/dL [facility] Platelet 286 145 - 357 x10(3)/mc L [facility] RDW Standard Deviation 41.9 37.0 - 46.0 fL [facility] RDW coefficient of variation 13.2 11.5 - 14.1 % [facility] Mean Platelet Volume 10.4 7.6 - 12.9 fL [facility] NRBC% auto 0.0 % [facility] NRBC Absolute 0.000 0.000 - 0.000 x10(3)/mc L [facility] Blood specimen (specimen) 07/11/2019 5:46 PM EDT 07/11/2019 5:55 PM EDT Narrative Resulting Agency Comment Spec In Lab Cathy Dillon APRN HEMATOLOGY ORDERA ADRIANNAS Performing Organization Address [facility]/State/ZIP Co de Phone Number [facility] [place] [address] * Heavy metals screen, blood (07/11/2019 5:46 PM EDT) Heavy Metals Screen (MAY) Test ? Result ?Flag ??Unit ?RefValue ------- Heavy Metals Scrn with Demographics ??Arsenic, B ? <1 ?ng/mL ?? 0-12 ? ---ADDITIONAL INFORMATION------- ?This test was developed and its performance characteristics ?determined by [facility] in a manner consistent with CLIA ?requirements. This test has not been cleared or approved by ?the U.S. Food and Drug Administration. ??Lead, B ?1.2 ? mcg/dL ??0.0-4.9 ? ---ADDITIONAL INFORMATION------- ?Testing performed by Inductively Coupled Plasma-Mass ?Spectrometry (ICP-MS). ?This test was developed and its performance characteristics ?determined by [facility] in a manner consistent with CLIA ?requirements. This test has not been cleared or approved by ?the U.S. Food and Drug Administration. ??Cadmium, B ? 0.2 ? ng/mL ?? 0.0-4.9 ? ---ADDITIONAL INFORMATION------- ?This test was developed and its performance characteristics ?determined by [facility] in a manner consistent with CLIA ?requirements. This test has not been cleared or approved by ?the U.S. Food and Drug Administration. ??Mercury, B ? <1 ?ng/mL ?? 0-9 ? ---ADDITIONAL INFORMATION------- ?This test was developed and its performance characteristics ?determined by [facility] in a manner consistent with CLIA ?requirements. This test has not been cleared or approved by ?the U.S. Food and Drug Administration. ??Venous/Capillary ? Venous ??Patient Street Address ? [address] ??Patient City ? [place] ??Patient State ?[place] ??Patient Zip Code ? [address] ??Patient County ? [place] ??Patient Home Phone ? [phone] ??Patient Race ? white ??Patient Ethnicity ?non ??Patient Occupation ? 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 na ??Health Care Provider Name ?Pérez Ferreira ??Health Care Provider Street Address ?[address] ??Health Care Provider City ?[place] ??Health Care Provider [place] ? [place] ??Health Care Provider Zip Code ?[address] ??Health Care Provider Phone ? [phone] ??Submitting Laboratory Phone ?[phone] ?Test Performed by: ?[facility] ?[address] [place] [address] ?Repair Supervisor: Jose Sands M.D. Ph.D.; CLIA# [id number] [facility] Blood specimen (specimen) 07/11/2019 5:46 PM EDT 07/12/2019 1:00 PM EDT Narrative Resulting Agency Comment Spec In Lab Julio Cesar Wright MD LAB SEND OUT ORDERAB LES [facility] [place] [address] documented in this encounter Visit Diagnoses Diagnosis Type 2 diabetes mellitus with diabetic neuropathy, unspecified whether meterman insulin use Iron deficiency Iron deficiency anemia, unspecified Disorder of iron metabolism Other disorders of iron metabolism documented in this encounter Care Teams Clerk Rating Relationship Specialty Start Date End Date Ruth Munoz, FARM OPERATIONS TECHNICAL DIRECTOR [address] [place] [address] PCP - General Family Medicine 02/05/19 documented as of this encounter
--- OUTSIDE RECORDS SUMMARY | 2024-09-18 16:11 | XMS_ITS | Encounter Summary ---
Author Organization [facility] [place] [address] Care Team Providers Care Carbide Tool Die Maker Name Role Phone MunozRuth jerome Lilibeth JUAREZ Primary Care Provider + Reason for Visit * Reason Comments Medication Refill Encounter Details Date Type Department Care Team (Late st Contact Info) Description 08/10/2019 [place] [phone] Judith Reionso MD [facility] [place] [place] [address] Social History Tobacco Use Types Packs/Day Years [...] AM EDT TH Visit (TeleHealth) [place] [address] Wyatt Higgins MD [facility] [place] [address] documented as of this encounter Visit Diagnoses Not on filedocumented in this encounter Care Teams Carbide Tool Die Maker Relationship Specialty Start Date End Date Ruth Munoz APRN [address] [place] [address] PCP - General Family Medicine 02/05/19 documented as of this encounter
--- OUTSIDE RECORDS SUMMARY | 2024-09-18 16:11 | XMS_ITS | Encounter Summary ---
[place] [address] Care Team Providers Care Software Recruiter Name Role Phone Ruth Munoz LARRY Primary Care Provider + Reason for Visit * Reason Comments Medication Management Patient Education Encounter Details Date Type Department Care Team (Late st Contact Info) Description 02/14/2020 Specialty [place] [address] Bria Yousif RPH Social History Tobacco Use [...] Date to be provided: 08/29/18 Delivery Method: bean picker machine operator -Patient returned signed Rights & Responsibilities: No [...] AM EDT TH Visit (TeleHealth) [place] [address] Wyatt Higgins MD [facility] [place] [address] documented as of this encounter Visit Diagnoses Not on filedocumented in this encounter Care Teams Software Recruiter Relationship Specialty Start Date End Date Ruth Munoz APRN [address] [place] [address] PCP - General Family Medicine 02/05/19 documented as of this encounter
--- OUTSIDE RECORDS SUMMARY | 2024-09-18 16:11 | XMS_ITS | Encounter Summary ---
Author Organization [facility] [place] [address] Care Team Providers Care Farm Management Adviser Name Role Phone Ruth Munoz Lilibeth JUAREZ Primary Care Provider + Reason for Visit * Reason Comments Psoriasis Encounter Details Date Type Department Care Team (Late st Contact Info) Description 05/12/2020 9:45 AM EDT Office Visit Dermatology at [address] [phone] Galdino Gilliland MD [address], [place] [address] Psoriasis Social History Tobacco Use Types Packs/Day [...] AM EDT TH Visit (TeleHealth) [place] [address] Wyatt Higgins MD [facility] [place] [address] documented as of this encounter Visit Diagnoses Diagnosis Psoriasis Other psoriasis documented in this encounter Care Teams Farm Management Adviser Relationship Specialty Start Date End Date Ruth Munoz APRN [address] [place] [address] PCP - General Family Medicine 02/05/19 documented as of this encounter
--- OUTSIDE RECORDS SUMMARY | 2024-09-18 16:11 | XMS_ITS | Encounter Summary ---
Author Organization [facility] [place] [address] Care Team Providers Care Polls Or Surveys Interviewer Name Role Phone MunozRuth jerome Lilibeth JUAREZ Primary Care Provider + Reason for Visit * Reason Onset Date Comments Follow-up 11/01/2019 Encounter Details Date Type Department Care Team (Late st Contact Info) Description 11/01/2019 Telephone [place] [address] Cathy Dillon APRN [facility] [place] [address] Follow-up Social History Tobacco Use Types Packs/Day [...] AM EDT TH Visit (TeleHealth) [place] [address] Wyatt Higgins MD [facility] [place] [address] documented as of this encounter Visit Diagnoses Not on filedocumented in this encounter Care Teams Polls Or Surveys Interviewer Relationship Specialty Start Date End Date Ruth Munoz, LARRY [address] [place] [address] PCP - General Family Medicine 02/05/19 documented as of this encounter
--- OUTSIDE RECORDS SUMMARY | 2024-09-18 16:11 | XMS_ITS | Encounter Summary ---
Author Organization [facility] [place] [address] Care Team Providers Care Jalousies Installer Name Role Phone Ruth Munoz LARRY Primary Care Provider + Encounter Details Date Type Department Care Team (Late st Contact Info) Description 02/18/2019 [place] [phone] Julio Cesar Wright MD [facility] [place] [address] Social History Tobacco Use Types Packs/Day Years [...] note were not included. Message Received: Today Pérez Ferreira MD Muir, Carmen A, RN Caller: Unspecified (Today, ??9:53 AM) [...] Molina - 02/18/2019 9:53 AM EDT Clinical Automatic Splicing Machine Operator Message Caller: Martha Felix not Pt / Relation to pt: Call back Number: [phone] Best time to reach caller: Anytime Reason [...] TH Visit (TeleHealth) [place] [address] Wyatt Higgins MD [facility] [place] [address] documented as of this encounter Visit Diagnoses Not on filedocumented in this encounter Care Teams Jalousies Installer Relationship Specialty Start Date End Date Ruth Munoz, LARRY [address] [place] [address] PCP - General Family Medicine 02/05/19 documented as of this encounter
--- OUTSIDE RECORDS SUMMARY | 2024-09-18 16:11 | XMS_ITS | Encounter Summary ---
Author Organization [facility] [place] [address] Care Team Providers Care Fruit Dumper Name Role Phone AlexanderAidanantony Mcelroy APRN Primary Care Provider + Encounter Details Date Type Department Care Team (Late st Contact Info) Description 02/24/2020 Telephone Dermatology at [address] [address] Benita Salazar LPN Social History [...] AM EDT TH Visit (TeleHealth) [place] [address] Wyatt Higgins MD [facility] [place] [address] documented as of this encounter Visit Diagnoses Not on filedocumented in this encounter Care Teams Fruit Dumper Relationship Specialty Start Date End Date Ruth Munoz, MORTGAGE FUNDER [address] [place] [address] PCP - General Family Medicine 02/05/19 documented as of this encounter
--- OUTSIDE RECORDS SUMMARY | 2024-09-18 16:11 | XMS_ITS | Encounter Summary ---
Author Organization [facility] [place] [address] Care Team Providers Care Rn Immunology Name Role Phone MunozRuth jerome Lilibeth JUAREZ Primary Care Provider + Encounter Details Date Type Department Care Team (Late st Contact Info) Description 02/05/2019 11:30 AM EDT [place] [address] Julio Cesar Wright MD [facility] [place] [address] Type 2 diabetes mellitus with diabetic neuropathy, unspecified whether shelter insulin use (Primary Dx) Social History Tobacco [...] significant pesticide exposure during childhood in the [facility]. Interval History: Since last being seen in [...] file Gets together: Not on file Attends spiritism service: Not on file Active member of [...] L Finger flexion 4-/5 R, 4-/5 L Housecalls Nurse 3/5 R, 3/5 L Interossei 4-/5 R, [...] significant pesticide exposure during childhood in the [facility]. Her bothersome paresthesias and dysesthesias have continued [...] at this time. Seen with Dr. Wright. Pérez Ferreira MD Clinical Neurophysiology Fellow Personal Pager #[phone] Epilepsy Neurology #[id number] * Julio Cesar Wright MD - 02/05/2019 [...] AM EDT TH Visit (TeleHealth) [place] [address] Wyatt Higgins MD [facility] [place] [address] documented as of this encounter Results * Heavy metals screen, blood (07/11/2019 5:46 PM EDT) [facility] Heavy Metals Screen (MAY) Test ? Result ?Flag ??Unit ?RefValue ------- Heavy Metals Scrn with Demographics ??Arsenic, B ? <1 ?ng/mL ?? 0-12 ? ---ADDITIONAL INFORMATION------- ?This test was developed and its performance characteristics ?determined by [facility] in a manner consistent with CLIA ?requirements. This test has not been cleared or approved by ?the U.S. Food and Drug Administration. ??Lead, B ?1.2 ? mcg/dL ??0.0-4.9 ? ---ADDITIONAL INFORMATION------- ?Testing performed by Inductively Coupled Plasma-Mass ?Spectrometry (ICP-MS). ?This test was developed and its performance characteristics ?determined by [facility] in a manner consistent with CLIA ?requirements. This test has not been cleared or approved by ?the U.S. Food and Drug Administration. ??Cadmium, B ? 0.2 ? ng/mL ?? 0.0-4.9 ? ---ADDITIONAL INFORMATION------- ?This test was developed and its performance characteristics ?determined by [facility] in a manner consistent with CLIA ?requirements. This test has not been cleared or approved by ?the U.S. Food and Drug Administration. ??Mercury, B ? <1 ?ng/mL ?? 0-9 ? ---ADDITIONAL INFORMATION------- ?This test was developed and its performance characteristics ?determined by [facility] in a manner consistent with CLIA ?requirements. This test has not been cleared or approved by ?the U.S. Food and Drug Administration. ??Venous/Capillary ? Venous ??Patient Street Address ? [address] ??Patient City ? [place] ??Patient State ?[place] ??Patient Zip Code ? [address] ??Patient County ? [place] ??Patient Home Phone ? [phone] ??Patient Race ? white ??Patient Ethnicity ?non ??Patient Occupation ? 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 na ??Health Care Provider Name ?Pérez Ferreira ??Health Care Provider Street Address ?[address] ??Health Care Provider City ?[place] ??Health Care Provider [place] ? [place] ??Health Care Provider Zip Code ?[address] ??Health Care Provider Phone ? [phone] ??Submitting Laboratory Phone ?[phone] ?Test Performed by: ?[facility] ?[address] [place] [address] ?Call Center Nurse: Jose Sands M.D. Ph.D.; CLIA# [id number] [facility] Blood specimen (specimen) 07/11/2019 5:46 PM EDT 07/12/2019 1:00 PM EDT Narrative Resulting Agency Comment Spec In Lab Julio Cesar Wright MD LAB SEND OUT ORDERAB LES [facility] [address] [place] [address] documented in this encounter Visit Diagnoses Diagnosis Type 2 diabetes mellitus with diabetic neuropathy, unspecified whether shelter insulin use- Primary documented in this encounter Care Teams Rn Immunology Relationship Specialty Start Date End Date Ruth Munoz, JINRIKSHA DRIVER [address] [place] [address] PCP - General Family Medicine 02/05/19 documented as of this encounter
--- OUTSIDE RECORDS SUMMARY | 2024-09-18 16:11 | XMS_ITS | Encounter Summary ---
Author Organization [facility] [place] [address] Care Team Providers Care Manager Program Management Name Role Phone MunozRuth jerome Lilibeth JUAREZ Primary Care Provider + Reason for Visit * Reason Comments Medication Refill Encounter Details Date Type Department Care Team (Late st Contact Info) Description 01/27/2020 [place] [phone] Judith Reinoso MD [facility] [place] [address] Social History Tobacco Use Types Packs/Day Years [...] AM EDT TH Visit (TeleHealth) [place] [phone] Wyatt Higgins MD [facility] [place] [address] documented as of this encounter Visit Diagnoses Not on filedocumented in this encounter Care Teams Manager Program Management Relationship Specialty Start Date End Date Ruth Munoz APRN [address] [place] [address] PCP - General Family Medicine 02/05/19 documented as of this encounter
--- OUTSIDE RECORDS SUMMARY | 2024-09-18 16:11 | XMS_ITS | Encounter Summary ---
[place] [address] Care Team Providers Care Automobile Accessories Salesperson Name Role Phone Ruth Munoz Lilibeth JUAREZ Primary Care Provider + Encounter Details Date Type Department Care Team (Late st Contact Info) Description 10/07/2019 3:15 PM EST Office [place] [address] Wyatt Higgins MD [facility] [place] [address] Prince Sorensen MD [facility] [place] [address] Polyneuropathy Social History Tobacco Use Types Packs/Day [...] She was last seen by neurology at [facility] in January 2019. Patient states she thinks [...] to live with their single father in [place] where their father used to work in [...] Julio Cesar Wright suggested lumbar puncture in [place] -if high protein, may need IVIG therapy or try two days of high dose steroid therapy ??? Preoperative Class III obesity BMI 43, S/P gastric bypass 01/04/16 Overview Note: Bariatric Surgery Program 1. Attended Introduction to the [facility] Bariatric Surgery Program seminar, a comprehensive two hour meeting that provides a program overview, education on bariatric surgeries offered at [facility], risks andbenefits, as well as patient expectations and follow up: 08/05/14. [facility] BSP Educational seminars viewed: 3. Grades on post-testin-100%. The BSP Educational Handbook is provided at preoperative visit #1. 2. Pre-operative programmatic evaluations required: PCP evaluation and letter of support to proceedwith surgery, BSP labwork (can be done on day of visit #1) and psychological evaluation- minimum of2 visits. 3. Bariatric Surgery Program evaluations with RD and INCOME TAX CONSULTANT: 11/03/15 4. Weight history: 198 pounds on 08/25/04, 207 pounds on 03/20/09, 249 pounds on 07/01/14, 253 pounds on 02/20/15 5. Gallbladder status: 6. Insurer specific requirements: [place] medicaid- 3 months of supervised counseling 7. BSP Team meeting discussion: no Post surgery course: 1. Admitted to [facility] on 01/24/16 with nausea and vomiting, failure to progress diet.Transfer to [facility] on 01/25/16 ??? Vitamin D deficiency Overview [...] ureteral stone extraction Jul - [facility] [place] ??? Chronic foot pain-s/p heel spur surgeries [...] Prince Sorensen MD Clinical Neurophysiology Fellow Pager: [phone] 10/07/2019 Neurology Staff Note I have reviewed [...] AM EDT TH Visit (TeleHealth) [place] [address] Wyatt Higgins MD [facility] [place] [address] documented as of this encounter Visit Diagnoses Diagnosis Polyneuropathy Unspecified hereditary and idiopathic peripheral neuropathy documented in this encounter Care Teams Automobile Accessories Salesperson Relationship Specialty Start Date End Date Ruth Munoz APRN [address] [place] [address] PCP - General Family Medicine 02/05/19 documented as of this encounter
--- OUTSIDE RECORDS SUMMARY | 2024-09-18 16:11 | XMS_ITS | Encounter Summary ---
Author Organization [facility] [place] [address] Care Team Providers Care Roofer Applicator Name Role Phone Ruth Munoz LARRY Primary Care Provider + Encounter Details Date Type Department Care Team (Late st Contact Info) Description 02/18/2019 [place] [phone] Pérez Ferreira MD [facility] [place] [address] Social History Tobacco Use Types Packs/Day Years [...] AM EDT TH Visit (TeleHealth) [place] [phone] Wyatt Higgins MD [facility] [place] [address] documented as of this encounter Visit Diagnoses Not on filedocumented in this encounter Care Teams Roofer Applicator Relationship Specialty Start Date End Date Ruth Munoz APRN [address] [place] [address] PCP - General Family Medicine 02/05/19 documented as of this encounter
--- OUTSIDE RECORDS SUMMARY | 2024-09-18 16:11 | XMS_ITS | Encounter Summary ---
Author Organization [facility] [place] [address] Care Team Providers Care Jewelry Inspector Name Role Phone MunozRuth jerome Lilibeth JUAREZ Primary Care Provider + Reason for Visit * Reason Comments Medication Refill Encounter Details Date Type Department Care Team (Late st Contact Info) Description 08/06/2019 Ref[place] [phone] Judith Reinoso MD [facility] [place] [address] Social History Tobacco Use Types Packs/Day Years [...] AM EDT TH Visit (TeleHealth[place] [phone] Wyatt Higgins MD [facility] [place] [address] documented as of this encounter Visit Diagnoses Not on filedocumented in this encounter Care Teams Jewelry Inspector Relationship Specialty Start Date End Date Ruth Munoz APRN [address] [place] [address] PCP - General Family Medicine 02/05/19 documented as of this encounter
--- OUTSIDE RECORDS SUMMARY | 2024-09-18 16:11 | XMS_ITS | Encounter Summary ---
[place] [address] Care Team Providers Care Surgical Assistant Name Role Phone Ruth Munoz APRN Primary Care Provider + Reason for Referral * Surgical (Routine) - Closed Specialty Diagnoses / Procedures Referred By Patricio monsivais Referred To Contact Neurology Diagnoses Neuropathy Procedures Lumbar Puncture Prince Sorensen MD [facility] [place] [place] [address] [facility] [address] [place] [address] Referral ID Status Reason Start Date Expiration Date V isits Requested Visits Authorized [id number] Closed Consult, Test & Treat 08/06/2019 08/05/2020 1 1 Reason for Visit * Reason Onset Date Comments Other 08/06/2019 Encounter Details Date Type Department Care Team (Late st Contact Info) Description 08/06/2019 [place] [address] Prince Sorensen MD [facility] [place] [address] Other Social History Tobacco Use Types Packs/Day [...] Aguilar - 08/06/2019 8:57 AM EDT Clinical Carney Message Caller: Patient If not Pt / Relation to pt: Call back number: B Reason for call: Lab/Test Results Results being requested: Labs Where were tab/test done: [facility] When were lab/test done: 07/25 Additional information or questions for the nurse: Disposition of Call: routine message to nurse documented in this encounter Plan of Treatment Upcoming Encounters Date Type Department Care Team (Late st Contact Info) Description 02/19/2025 9:00 AM EDT TH Visit (TeleHealth) [place] [address] Wyatt Higgins MD [facility] [place] [address] documented as of this encounter Results * Oligoclonal Banding Blood (08/15/2019 11:12 AM EDT) Olig Band Bld Hold Sample in lab. [facility] Blood specimen (specimen) 08/15/2019 11:12 AM EDT 08/15/2019 11:22 AM EDT Narrative Resulting Agency Comment Spec In Lab Wyatt Higgins MD CHEMISTRY ORDERABLES Performing Organization Address [facility] de Phone Number [facility] [place] [address] * IgG Index Blood (08/15/2019 11:12 AM EDT) IgG Index Bld Hold Sample in lab. [facility] Blood specimen (specimen) 08/15/2019 11:12 AM EDT 08/15/2019 11:22 AM EDT Narrative Resulting Agency Comment Spec In Lab Wyatt Higgins MD CHEMISTRY ORDERABLES Performing Organization Address [facility] de Phone Number [facility] [place] [address] * Oligoclonal Banding CSF (08/15/2019 10:49 AM EDT) Oligo Bands Csf (MAY) Test ? Result ?Flag ??Unit ? RefValue Oligoclonal Banding ??Serum Bands ?0 ? bands ??CSF Bands ?0 ? bands ??CSF Olig Bands Interpretation ?0 ? bands ?<4 ?The oligoclonal band assay detected 3 or fewer unique IgG ?bands in the CSF. This is a negative result. ?Test Performed by: ?[facility] ?[address] [place] [address] ?Flight Paramedic: Jose Sands M.D. Ph.D.; CLIA# [id number] [facility] [place] Review 08/15/2019 10:4 9 AM EDT 08/16/2019 12:03 PM EDT Narrative Resulting Agency Comment Spec In Lab Wyatt Higgins MD LAB SEND OUT ORDERAB LES [facility] [place] [address] * IgG Index CSF (08/15/2019 10:49 AM EDT) IgG Index, CSF (MAY) Test ? Result ?Flag ??Unit ? RefValue [...] ? 0.28 ? <=0.40 ?Test Performed by: ?[facility] [address] ?[address] [place] [address] ?Flight Paramedic: Jose Sands M.D. Ph.D.; IA# [id number] [facility] [place] Review 08/15/2019 10:4 9 AM EDT 08/16/2019 12:03 PM EDT Narrative Resulting Agency Comment Spec In Lab Wyatt Higgins MD LAB SEND OUT ORDERAB LES Performing Organization Address [facility]/ZIP Co de Phone Number [facility] [place] [address] * CSF Culture (08/15/2019 10:49 AM EDT) Central Nervous System Culture No growth [facility] Gram Stain Cytocentrifuge Gram Stain performed No Neutrophils seen. No microorganisms seen. [facility] Cerebrospinal fluid specimen (specimen) 08/15/2019 10:49 AM EDT 08/15/2019 11:35 AM EDT Narrative Resulting Agency Comment Spec In Lab Wyatt Higgins MD MICROBIOLOGY - GENER AL ORDERABLES Performing Organization Address [facility] Co de Phone Number [facility] [place] [address] * Glucose Level CSF (08/15/2019 10:49 AM EDT) Glucose, CSF 101 mg/dL [facility] Comment:CSF at equilibrium e quals approximately 60-80% of plasma glucose. Cerebrospinal fluid specimen (specimen) 08/15/2019 10:49 AM EDT 08/15/2019 11:10 AM EDT Narrative Resulting Agency Comment Spec In Lab Wyatt Higgins MD BODY FLUIDS AND STOO LS ORDERABLES Performing Organization Address [facility] Co de Phone Number [facility] [place] [address] * Protein Level CSF (08/15/2019 10:49 AM EDT) Protein, CSF 42 15 - 45 mg/dL [facility] Xanthochromia Neg [facility] Cerebrospinal fluid specimen (specimen) 08/15/2019 10:49 AM EDT 08/15/2019 11:10 AM EDT Narrative Resulting Agency Comment Spec In Lab Wyatt Higgins MD BODY FLUIDS AND STOO LS ORDERABLES [facility] [place] [address] * LUMBAR PUNCTURE (08/15/2019 10:30 AM EDT) Narrative Elva Johnson MD - 08/15/2019 10:30 AM EDT Elva Johnson MD ? 08/15/2019 10:54 AM Lumbar Puncture Date/Time: 08/15/2019 10:53 AM Performed by: Elva Johnson MD Authorized by: Wyatt Higgins MD [place] Protocol: ??Written consent obtained?: Yes ?Risks and [...] time out verifies correct patient, procedure, equipment, emotional support teacher and site/side marked as required: Indications: ??LP [...] site documented in this encounter Care Teams Surgical Assistant Relationship Specialty Start Date End Date Ruth Munoz, LIVING SKILLS ADVISOR [address] [place] [address] PCP - General Family Medicine 02/05/19 documented as of this encounter
--- OUTSIDE RECORDS SUMMARY | 2024-09-18 16:11 | XMS_ITS | Encounter Summary ---
Author Organization [facility] [place] [address] Care Team Providers Care [employer] Industrial Arts Teacher Name Role Phone MunozRuth jerome Lilibeth JUAREZ Primary Care Provider + Encounter Details Date Type Department Care Team (Late st Contact Info) Description 06/17/2019 Orders [place] [address] Cathy Dillon APRN [facility] [place] [address] Social History Tobacco Use Types Packs/Day Years [...] AM EDT TH Visit (TeleHealth) [place] [address] Wyatt Higgins MD [facility] [place] [address] documented as of this encounter Visit Diagnoses Not on filedocumented in this encounter Care Teams [employer] Industrial Arts Teacher Relationship Specialty Start Date End Date Ruth Munoz APRN [address] [place] [address] PCP - General Family Medicine 02/05/19 documented as of this encounter
--- OUTSIDE RECORDS SUMMARY | 2024-09-18 16:11 | XMS_ITS | Encounter Summary ---
Author Organization [facility] [place] [address] Care Team Providers Care Product Technician Name Role Phone MunozRuth jerome Lilibeth JUAREZ Primary Care Provider + Reason for Visit * Reason Comments Medication Refill Encounter Details Date Type Department Care Team (Late st Contact Info) Description 12/13/2019 [place] [phone] Judith Reinoso MD [facility] [place] [address] Social History Tobacco Use Types Packs/Day Years [...] AM EDT TH Visit (TeleHealth[place] [address] Wyatt Higgins MD [facility] [place] [place] [address] documented as of this encounter Visit Diagnoses Not on filedocumented in this encounter Care Teams Product Technician Relationship Specialty Start Date End Date Ruth Munoz APRN [address] [place] [address] PCP - General Family Medicine 02/05/19 documented as of this encounter
--- OUTSIDE RECORDS SUMMARY | 2024-09-18 16:11 | XMS_ITS | Encounter Summary ---
Author Organization Formerly [facility] [place] [address] Care Team Providers Care Hand Trucker Name Role Phone MunozAidan jeromeantony Mcelroy APRN Primary Care Provider + Reason for Visit * Reason Comments Procedure Encounter Details Date Type Department Care Team (Late st Contact Info) Description 08/15/2019 10:30 AM EDT [place] [address] Elva Johnson MD [facility] [place] [address] Neuropathy Social History Tobacco Use Types Packs/Day [...] Johnson MD Authorized by: Wyatt Higgins MD [place] Protocol: Written consent obtained?: Yes Risks and [...] time out verifies correct patient, procedure, equipment, research support specialist and site/side marked as required: Indications: LP [...] AM EDT TH Visit (TeleHealth) [place] [address] Wyatt Higgins MD [facility] [place] [address] documented as of this encounter Procedures Procedure [...] IgM Antibody (08/15/2019 11:12 AM EDT) Lyme Antibody Neg Neg [facility] Blood specimen (specimen) Venous Draw / Unknown 08/15/2019 11:12 AM EDT 08/16/2019 7:42 AM EDT Narrative Resulting Agency Comment Spec In Lab Prince Sorensen MD IMMUNOLOGY ORDER AMY Performing Organization Address [facility] Co de Phone Number [facility] [place] [address] * CSF Cell Count (08/15/2019 10:49 AM EDT) Tube # counted 4 [facility] AUTO NUC CSF CT 1 0 - 5 /mcl MAR Y [facility] Comment: If Nucleated CSF CT result [...] clinical condition. RBC CSF CT 70 /mcl [facility] Cerebrospinal fluid specimen (specimen) 08/15/2019 10:49 AM EDT 08/15/2019 11:10 AM EDT Narrative Resulting Agency Comment Spec In Lab Prince Sorensen MD BODY FLUIDS AND STOOLS ORDERABLES Performing Organization Address [facility] Co de Phone Number [facility] [place] [address] * CSF DESC 4 (08/15/2019 10:49 AM EDT) Tube Num CSF 4 4 [facility] Color, CSF 4 Colorless Colorless [facility] Appearance, CSF 4 Clear Clear [facility] Total Vol, CSF 4 1.8 mL [facility] Cerebrospinal fluid specimen (specimen) 08/15/2019 10:49 AM EDT 08/15/2019 11:10 AM EDT Narrative Resulting Agency Comment Spec In Lab Prince Sorensen MD BODY FLUIDS AND STOOLS ORDERABLES Performing Organization Address [facility] de Phone Number [facility] [place] [address] * CSF DESC 3 (08/15/2019 10:49 AM EDT) Tube Num CSF 3 3 [facility] Color, CSF 3 Colorless Colorless [facility] Appearance, CSF 3 Clear Clear [facility] Total Vol, CSF 3 1.8 mL [facility] Cerebrospinal fluid specimen (specimen) 08/15/2019 10:49 AM EDT 08/15/2019 11:10 AM EDT Narrative Resulting Agency Comment Spec In Lab Prince Sorensen MD BODY FLUIDS AND STOOLS ORDERABLES Performing Organization Address [facility] de Phone Number [facility] [place] [address] * CSF DESC 2 (08/15/2019 10:49 AM EDT) Tube Num CSF #2 2 [facility] Color, CSF 2 Colorless Colorless [facility] Appearance, CSF 2 Clear Clear [facility] Total Vol, CSF 2 2.0 mL [facility] Cerebrospinal fluid specimen (specimen) 08/15/2019 10:49 AM EDT 08/15/2019 11:10 AM EDT Narrative Resulting Agency Comment Spec In Lab Prince Sorensen MD BODY FLUIDS AND STOOLS ORDERABLES Performing Organization Address [facility]/ZIP Co de Phone Number [facility] [place] [address] * CSF DESC 1 (08/15/2019 10:49 AM EDT) Tube Num CSF #1 1 [facility] Color, CSF Colorless Colorless [facility] Appearance, CSF Clear Clear [facility] Total Vol, CSF 2.0 mL [facility] Cerebrospinal fluid specimen (specimen) 08/15/2019 10:49 AM EDT 08/15/2019 11:10 AM EDT Narrative Resulting Agency Comment Spec In Lab Prince Sorensen MD BODY FLUIDS AND STOOLS ORDERABLES Performing Organization Address [facility] Co de Phone Number [facility] [place] [address] * IgG Index CSF (08/15/2019 10:49 AM [...] ?Test Performed by: ?[facility] [address] ?[address] [place] [address] ?[employer]ision Agriculture Specialist: Jose Sands M.D. Ph.D.; CLIA# [id number] [facility] [place] 08/15/2019 10:4 9 AM EDT 08/16/2019 12:03 PM EDT Narrative Resulting Agency Comment Spec In Lab Wyatt Higgins MD LAB SEND OUT ORDERAB LES Performing Organization Address [facility]/ZIP Co de Phone Number [facility] [place] [address] * CSF Culture (08/15/2019 10:49 AM EDT) Central Nervous System Culture No growth [facility] Gram Stain Cytocentrifuge Gram Stain performed No Neutrophils seen. No microorganisms seen. [facility] Cerebrospinal fluid specimen (specimen) 08/15/2019 10:49 AM EDT 08/15/2019 11:35 AM EDT Narrative Resulting Agency Comment Spec In Lab Wyatt Higgins MD MICROBIOLOGY - GENER AL ORDERABLES Performing Organization Address [facility] Co de Phone Number [facility] [place] [address] * Protein Level CSF (08/15/2019 10:49 AM EDT) Protein, CSF 42 15 - 45 mg/dL [facility] Xanthochromia Neg [facility] Cerebrospinal fluid specimen (specimen) 08/15/2019 10:49 AM EDT 08/15/2019 11:10 AM EDT Narrative Resulting Agency Comment Spec In Lab Wyatt Higgins MD BODY FLUIDS AND STOO LS ORDERABLES Performing Organization Address [facility] Co de Phone Number [facility] [place] [address] * Glucose Level CSF (08/15/2019 10:49 AM EDT) Glucose, CSF 101 mg/dL [facility] Comment:CSF at equilibrium e quals approximately 60-80% of plasma glucose. Cerebrospinal fluid specimen (specimen) 08/15/2019 10:49 AM EDT 08/15/2019 11:10 AM EDT Narrative Resulting Agency Comment Spec In Lab Wyatt Higgins MD BODY FLUIDS AND STOO LS ORDERABLES [facility] [place] [address] * Oligoclonal Banding CSF (08/15/2019 10:49 AM EDT) Oligo Bands Csf (MAY) Test ? Result ?Flag ??Unit ? RefValue Oligoclonal Banding ??Serum Bands ?0 ? bands ??CSF Bands ?0 ? bands ??CSF Olig Bands Interpretation ?0 ? bands ?<4 ?The oligoclonal band assay detected 3 or fewer unique IgG ?bands in the CSF. This is a negative result. ?Test Performed by: ?[facility] ?[address] [place] [address] ?[employer] Agriculture Specialist: Jose Sands M.D. Ph.D.; CLIA# [id number] [facility] [place] 08/15/2019 10:4 9 AM EDT 08/16/2019 12:03 PM EDT Narrative Resulting Agency Comment Spec In Lab Wyatt Higgins MD LAB SEND OUT ORDERAB LES [facility]EE [facility] [place] [address] * LUMBAR PUNCTURE (08/15/2019 10:30 AM EDT) Narrative Elva Johnson MD - 08/15/2019 10:30 AM EDT Elva Johnson MD ? 08/15/2019 10:54 AM Lumbar Puncture Date/Time: 08/15/2019 10:53 AM Performed by: Elva Johnson MD Authorized by: Wyatt Higgins MD [place] Protocol: ??Written consent obtained?: Yes ?Risks and [...] time out verifies correct patient, procedure, equipment, research support specialist and site/side marked as required: Indications: ??LP [...] site documented in this encounter Care Teams Hand Trucker Relationship Specialty Start Date End Date Ruth Munoz, RIGHT OF [address] MAN [address] [place] [address] PCP - General Family Medicine 02/05/19 documented as of this encounter
--- OUTSIDE RECORDS SUMMARY | 2024-09-18 16:11 | XMS_ITS | Encounter Summary ---
[place] [address] Care Team Providers Care Limited Radiology Technician Name Role Phone AlexanderRtuh Lilibeth JUAREZ Primary Care Provider + Encounter Details Date Type Department Care Team (Late st Contact Info) Description 02/13/2019 [place] [phone] Lauren Fowler RN Social History Tobacco Use [...] TH Visit (TeleHealth) [place] [address] Wyatt Higgins MD [facility] [place] [address] documented as of this encounter Visit Diagnoses Not on filedocumented in this encounter Care Teams Limited Radiology Technician Relationship Specialty Start Date End Date Ruth Munoz APRN [address] [place] [address] PCP - General Family Medicine 02/05/19 documented as of this encounter
--- OUTSIDE RECORDS SUMMARY | 2024-09-18 16:11 | XMS_ITS | Encounter Summary ---
[place] [address] Care Team Providers Care Chimney Construction Supervisor Name Role Phone AlexanderAidanantony Mcelroy APRN Primary Care Provider + Encounter Details Date Type Department Care Team (Late st Contact Info) Description 01/20/2020 Telephone [place] [phone] Nany Calderon RN Social History Tobacco Use [...] AM EDT TH Visit (TeleHealth) [place] [address] Wyatt Higgins MD [facility] [place] [address] documented as of this encounter Visit Diagnoses Not on filedocumented in this encounter Care Teams Chimney Construction Supervisor Relationship Specialty Start Date End Date Ruth Munoz, GAS STATION CASHIER [address] [place] [address] PCP - General Family Medicine 02/05/19 documented as of this encounter
--- OUTSIDE RECORDS SUMMARY | 2024-09-18 16:11 | XMS_ITS | Encounter Summary ---
[place] [address] Care Team Providers Care Skein Yard Drier Name Role Phone Ruth Munoz LARRY Primary Care Provider + Reason for Visit * Reason Comments Medication Management Encounter Details Date Type Department Care Team (Late st Contact Info) Description 04/27/2020 Specialty [place] [address] Sravanthi Cardoza RPH Social History Tobacco Use [...] beneficiary Provider: plan sponsor pharmacist [place]: [facility] [place] Method of Contact: by telephone Cognitive Ability: good Cognitive Impairment Status Verified this Year: no Allergies and Drug intolerance: No Known Allergies Medication Reconciliation Discrepancies (compared to [facility] med list) -none New medications: no New [...] at the appointment and that [facility] is providing recommendations (summary located at top of note) for provider review and follow up. Sravanthi Cardoza RPH 04/27/20 1:14 PM documented in this encounter Plan of Treatment Upcoming Encounters Date Type Department Care Team (Late st Contact Info) Description 02/19/2025 9:00 AM EDT TH Visit (TeleHealth) [place] [address] Wyatt Higgins MD [facility] [place] [address] documented as of this encounter Visit Diagnoses Not on filedocumented in this encounter Care Teams Skein Yard Drier Relationship Specialty Start Date End Date Ruth Munoz APRN [address] [place] [address] PCP - General Family Medicine 02/05/19 documented as of this encounter
--- OUTSIDE RECORDS SUMMARY | 2024-09-18 16:11 | XMS_ITS | Encounter Summary ---
Author Organization [facility] [place] [address] Care Team Providers Care Dianetic Counselor Name Role Phone Ruth Munoz Lilibeth JUAREZ Primary Care Provider + Reason for Visit * Reason Onset Date Comments Other 02/27/2019 Encounter Details Date Type Department Care Team (Late st Contact Info) Description 02/27/2019 [place] [address] Pérez Ferreira MD [facility] [place] [address] Other Social History Tobacco Use Types Packs/Day [...] Brown - 02/27/2019 9:05 AM EDT Clinical Knitting Machine Tender Message Caller: Martha If not Pt / Relation to pt: Call back Number: [phone] Best time to reach caller: Anytime (If [...] AM EDT TH Visit (TeleHealth) [place] [address] Wyatt Higgins MD [facility] [place] [address] documented as of this encounter Visit Diagnoses Not on filedocumented in this encounter Care Teams Dianetic Counselor Relationship Specialty Start Date End Date Ruth Munoz, SUPPLY SPECIALIST [address] [place] [address] PCP - General Family Medicine 02/05/19 documented as of this encounter
--- OUTSIDE RECORDS SUMMARY | 2024-09-18 16:11 | XMS_ITS | Encounter Summary ---
[place] [address] Care Team Providers Care Train Control Electronic Technician Name Role Phone Ruth Munoz LARRY Primary Care Provider + Encounter Details Date Type Department Care Team (Late st Contact Info) Description 12/13/2019 Telephone [place] [phone] Val Yousif, RN Social History Tobacco Use [...] AM EDT TH Visit (TeleHealth[place] [address] Wyatt Higgins MD [facility] [place] [address] documented as of this encounter Visit Diagnoses Not on filedocumented in this encounter Care Teams Train Control Electronic Technician Relationship Specialty Start Date End Date Ruth Munoz APRN [address] [place] [address] PCP - General Family Medicine 02/05/19 documented as of this encounter
--- OUTSIDE RECORDS SUMMARY | 2024-09-18 16:11 | XMS_ITS | Encounter Summary ---
Author Organization [facility] Address [facility] [place] [address] Care Team Providers Care Analytical Consultant Name Role Phone MunozRuth jerome Lilibeth JUAREZ Primary Care Provider + Encounter Details Date Type Department Care Team (Late st Contact Info) Description 02/18/2019 [place] [address] Pérez Ferreira MD [facility] [place] [address] Social History Tobacco Use Types Packs/Day Years [...] AM EDT TH Visit (TeleHealth) [place] [phone] Wyatt Higgins MD [facility] [place] [address] documented as of this encounter Visit Diagnoses Not on filedocumented in this encounter Care Teams Analytical Consultant Relationship Specialty Start Date End Date Ruth Munoz APRN [address] [place] [address] PCP - General Family Medicine 02/05/19 documented as of this encounter
--- OUTSIDE RECORDS SUMMARY | 2024-09-18 16:11 | XMS_ITS | Encounter Summary ---
Author Organization [facility] [place] [address] Care Team Providers Care Passenger Flagman Name Role Phone MunozRuth jerome Lilibeth JUAREZ Primary Care Provider + Encounter Details Date Type Department Care Team (Late st Contact Info) Description 02/11/2020 10:15 AM EDT TH Visit (TeleHealth) Dermatology at [address] [place] [address] Galdino Gilliland MD [address] [facility] [place] [address] Psoriasis Social History Tobacco Use Types Packs/Day [...] meantime and this was documented by her [facility] orthopedic surgeon. She would Laut now like [...] 3 months for repeat check Cc: Ruth Munzo APRN documented in this encounter Plan of Treatment Upcoming Encounters Date Type Department Care Team (Late st Contact Info) Description 02/19/2025 9:00 AM EDT TH Visit (TeleHealth) [place] [address] Wyatt Higgins MD [facility] [place] [address] documented as of this encounter Visit Diagnoses Diagnosis Psoriasis Other psoriasis documented in this encounter Care Teams Passenger Flagman Relationship Specialty Start Date End Date Ruth Munoz APRN [address] [place] [address] PCP - General Family Medicine 02/05/19 documented as of this encounter
--- OUTSIDE RECORDS SUMMARY | 2024-09-18 16:11 | XMS_ITS | Encounter Summary ---
[place] [address] Care Team Providers Care Claim Examiner Name Role Phone Ruth Munoz Lilibeth JUAREZ Primary Care Provider + Reason for Visit * Reason Comments Medication Management Encounter Details Date Type Department Care Team (Late st Contact Info) Description 05/13/2020 Specialty [place] [address] Sravanthi Cardoza RPH Social History Tobacco Use [...] Management (CMM) Martha Benoit [address] [facility] [address] Telephone Information: Work Phone Not on file. [...] made at the appointment and that [facility] isproviding recommendations (summary located at top of note) for provider review and follow up. Sravanthi Cardoza RPH 05/13/20 4:07 PM documented in this encounter Plan of Treatment Upcoming Encounters Date Type Department Care Team (Late st Contact Info) Description 02/19/2025 9:00 AM EDT TH Visit (TeleHealth) [place] [address] Wyatt Higgins MD [facility] [place] [address] documented as of this encounter Visit Diagnoses Not on filedocumented in this encounter Care Teams Claim Examiner Relationship Specialty Start Date End Date Ruth Munoz APRN [address] [place] [address] PCP - General Family Medicine 02/05/19 documented as of this encounter
--- OUTSIDE RECORDS SUMMARY | 2024-09-18 16:11 | XMS_ITS | Encounter Summary ---
Author Organization [facility] [place] [address] Care Team Providers Care Casework Manager Name Role Phone MunozRuth jerome Lilibeth JUAREZ Primary Care Provider + Reason for Visit * Reason Comments Medication Refill Encounter Details Date Type Department Care Team (Late st Contact Info) Description 03/17/2020 [place] [phone] Judith Reinoso MD [facility] [place] [address] Social History Tobacco Use Types Packs/Day Years [...] AM EDT TH Visit (TeleHealth) [place] [phone] Wyatt Higgins MD [facility] [place] [address] documented as of this encounter Visit Diagnoses Not on filedocumented in this encounter Care Teams Casework Manager Relationship Specialty Start Date End Date Ruth Munoz APRN [address] [place] [address] PCP - General Family Medicine 02/05/19 documented as of this encounter
--- OUTSIDE RECORDS SUMMARY | 2024-09-18 16:11 | XMS_ITS | Encounter Summary ---
[place] [address] Care Team Providers Care Clutch Inspector Name Role Phone MunozRuth jerome Lilibeth JUAREZ Primary Care Provider + Encounter Details Date Type Department Care Team (Late st Contact Info) Description 02/05/2020 Tele[place] [phone] Valerie Hinkle, [facility] Social History Tobacco Use Types Packs/Day Years [...] Notes * Telephone Encounter - Valerie Hinkle, [facility] - 02/05/2020 9:35 AM EDT [employer] Adviser Pre-Telemedicine Phone Note [] Patient not reached [x] Patient reached and the following information was reviewed/obtained per protocol: [x] Confirmed patient name and date of [] Confirmed telemedicine michelle (Vidyo and Virtual Visit) is downloaded and functioning [x] Confirmed location of patient - TeleVisit is taking place in [x] [place] [] [place] [] If not on myD, working on [...] AM EDT TH Visit (TeleHealth) [place] [phone] Wyatt Higgins MD [facility] [address] documented as of this encounter Visit Diagnoses Not on filedocumented in this encounter Care Teams Clutch Inspector Relationship Specialty Start Date End Date Ruth Munoz APRN [address] [place] [address] PCP - General Family Medicine 02/05/19 documented as of this encounter
--- OUTSIDE RECORDS SUMMARY | 2024-09-18 16:11 | XMS_ITS | Encounter Summary ---
Author Organization [facility] [place] [address] Care Team Providers Care Territory Manager Name Role Phone Ruth Munoz Lilibeth JUAREZ Primary Care Provider + Reason for Visit * Reason Onset Date Comments Other 08/15/2019 Encounter Details Date Type Department Care Team (Late st Contact Info) Description 08/15/2019 [place] [address] Prince Sorensen MD [facility] [place] [address] Other Social History Tobacco Use Types Packs/Day [...] Brown - 08/15/2019 12:09 PM EDT Clinical Commerce Message Caller: Kusum If not Pt / Relation to pt: Labs [facility] Call back Number:[phone] Reason for call: States [...] AM EDT TH Visit (TeleHealth) [place] [address] Wyatt Higgins MD [facility] [place] [address] documented as of this encounter Visit Diagnoses Diagnosis Neuropathy Mononeuritis of unspecified site Polyneuropathy Unspecified hereditary and idiopathic peripheral neuropathy Type 2 diabetes mellitus with diabetic neuropathy, unspecified whether manager intermediate insulin use documented in this encounter Care Teams Territory Manager Relationship Specialty Start Date End Date Ruth Munoz APRN [address] [place] [address] PCP - General Family Medicine 02/05/19 documented as of this encounter
--- OUTSIDE RECORDS SUMMARY | 2024-09-18 16:11 | XMS_ITS | Encounter Summary ---
Author Organization [facility] [place] [address] Care Team Providers Care Mothercraft Nurse Name Role Phone MunozRuth jerome Lilibeth JUAREZ Primary Care Provider + Reason for Visit * Reason Comments Medication Refill Encounter Details Date Type Department Care Team (Late st Contact Info) Description 02/18/2020 Refill [place] [phone] Judith Reinoso MD [facility] [place] [address] Social History Tobacco Use Types Packs/Day Years [...] EDT TH Visit (TeleHealth) [place] [phone] Wyatt Higgins MD [facility] [place] [address] documented as of this encounter Visit Diagnoses Not on filedocumented in this encounter Care Teams Mothercraft Nurse Relationship Specialty Start Date End Date Ruth Munoz APRN [address] [place] [address] PCP - General Family Medicine 02/05/19 documented as of this encounter
--- OUTSIDE RECORDS SUMMARY | 2024-09-18 16:11 | XMS_ITS | Encounter Summary ---
Author Organization [facility] Address [facility] [place] [address] Care Team Providers Care Gem Carver Name Role Phone AlexanderAidanantony Mcelroy APRN Primary Care Provider + Encounter Details Date Type Department Care Team (Latest Contact Info) Description 02/06/2020 11:00 AM EDT TH Visit (TeleHealth) [place] [address] Judith Reinoso MD [facility] [place] [address] Type 2 diabetes, controlled, with neuropathy; Vitamin [...] is pending for lab results yesterday at [facility]. She has been taking Augusta multivitamin to 2 tab daily with normal [...] III obesity BMI 43, S/P gastric bypass 14/16 E66.01 ??? Peripheral neuropathy-severe generalized G62.9 ??? [...] file Gets together: Not on file Attends restoration service: Not on file Active member of [...] D 50,000 iu 1x/week and 2 of Augusta MVI with iron which contains iron (she [...] TH Visit (TeleHealth) [place] [address] Wyatt Higgins MD [facility] [address] documented as of this encounter Visit Diagnoses Diagnosis Type 2 diabetes, controlled, with neuropathy Type II or unspecified type diabetes mellitus with neurological manifestations, not stated as uncontrolled Vitamin D deficiency Unspecified vitamin D deficiency History of gastric bypass Bariatric surgery status documented in this encounter Care Teams Gem Carver Relationship Specialty Start Date End Date Ruth Munoz, SENIOR FINANCIAL ANALYST [address] [place] [address] PCP - General Family Medicine 02/05/19 documented as of this encounter
--- OUTSIDE RECORDS SUMMARY | 2024-09-18 16:11 | XMS_ITS | Encounter Summary ---
Author Organization [facility] [place] [address] Care Team Providers Care Manager Enterprise Content Management Name Role Phone MunozRuth jerome LARRY Primary Care Provider + Reason for Visit * Reason Comments Follow-up Encounter Details Date Type Department Care Team (Late st Contact Info) Description 02/05/2019 1:00 PM EDT Office [place] [address] Cathy Dillon, COB SAWYER [facility] [place] [address] Nany Tai, CHARLES [facility] [place] [address] Iron deficiency; Disorder of iron metabolism; Intestinal [...] Dillon T - 02/05/2019 1:00 PM EDT [facility] support architect Latosha [phone] and Julia [phone] Dietitians: [phone] Surgeons/ nurse practitioners: [phone] Nurse line: [phone] Testing: Labwork: Today. Go to [facility], which is 1 flight below [...] visit today is sent to your primary urgent care Next visit: 1 year, sooner if you would like Routine visits are done at 4.8,12, 18 and 24 months after surgery, and yearly thereafter. Please call [phone] if you do not receive an appointment [...] of every month from 1-2 PM at [facility]- no registration required Nutrition and Activity apps- Baritastic, My Fitness Pal, Lose It, My Plate Internet resources: www.Diarize wwwXY Mobile www.Kivuto Solutions, formerly e-academyeaFrog Industry www.Helpshift, Inc[employer]blog [facility] facebook page: https://www.facebook.com/[facility]ATERBariatricSurgery Books & Magazines: - Recipes for Life After Weight Loss Surgery by Ashli Wiseman - Shrink Yourself by Dr Stephen Dial - Eating Well - www.Orgenesis.Osmopure - Cooking Light- www.cookinglight.Osmopure documented in this encounter Progress Notes * [...] Supplement Type Brand/Form Dosage/Amount Frequency Comments Multivitamin Hallie's chewable 1 Twice daily ?? Calcium ? [...] summary: Early Prolonged hospital stay. Admitted to [facility] on 01/24/16 with nausea and vomiting, failure to progress diet. Transfer to [facility] on 01/25/16 Late none Visits summary: Compliance [...] 17.11) performed by James Rosenthal MD at [facility] MAIN OR ??? PRO LAP GASTRIC BYPASS/BRADY-EN-Y N/A 01/04/2016 @LAPAROSCOPIC GASTROPLASTY, performed by Jose Mai MD at [facility] MAIN OR ??? PRO UPPER GI ENDOSCOPY, BIOPSY 11/16/2011 EGD WITH BIOPSY performed by ALISA RICHARDS at [facility] ENDOSCOPY ??? PRO UPPER GI ENDOSCOPY, DIAGNOSTIC N/A 11/04/2015 EGD, UPPER GI ENDOSCOPY performed by Kisha Doss MD at [facility] ENDOSCOPY ??? PRO UPPER GI ENDOSCOPY, DIAGNOSTIC N/A 01/04/2016 ENDOSCOPY, UPPER GI, DIAGNOSTIC, WITH OR WITHOUT SPECIMENS performed by Jose Mai MD at [facility] MAIN OR ??? TUBAL LIGATION ??? UPPER GI ENDOSCOPY, EXAM 11/16/2011 UPPER GI ENDOSCOPY performed by ALISA RICHARDS at [facility] ENDOSCOPY Allergies Allergen Reactions ??? Codeine Phosphate Nausea And Vomiting Medications 02/08/19 2348 Medication Sig Taking? metFORMIN (GLUCOPHAGE XR) 500 [...] blood in stool [] chronic diarrhea/ constipation DENTAL BILLING SPECIALIST: [] LMP: [] control [] menorrhagia [x] [...] cm Height in inches 5' 3 Weight (Martiniquais) 184 lbs Weight (Metric) 83.5 kg BMI [...] once a day with meals, due to group home concern for osteoporosis ?? Advised to call [...] If labwork is done by the primary urgent care: pleasesend a copy to the Bariatric Surgery Program, General Surgery Clinic, [facility], Questions regarding [facility] Bariatric Surgery Program patients: please call the Bariatric Surgery Program at [phone] documented in this encounter Plan of Treatment Upcoming Encounters Date Type Department Care Team (Late st Contact Info) Description 02/19/2025 9:00 AM EDT TH Visit (TeleHealth) [place] [address] Wyatt Higgins MD [facility] [place] [address] documented as of this encounter Results * (ABNORMAL) Hemogram (07/11/2019 5:46 PM EDT) White Blood Cell 11.9(H) 4.0 - 9.5 x10(3)/mc L [facility] Red Blood Cell 5.08 4.00 - 5.21 x10(6)/mc L [facility] Hemoglobin 14.0 11.7 - 15.5 gm/dL [facility] Hematocrit 43.8 35.7 - 45.8 % [facility] Mean Cell Volume 86.2 82.6 - 94.4 fL [facility] Mean Cell Hemoglobin 27.6 27.1 - 32.0 pg [facility] Mean Cell Hemoglobin Concentration 32.0 31.7 - 35.0 gm/dL [facility] Platelet 286 145 - 357 x10(3)/mc L [facility] RDW Standard Deviation 41.9 37.0 - 46.0 fL [facility] RDW coefficient of variation 13.2 11.5 - 14.1 % [facility] Mean Platelet Volume 10.4 7.6 - 12.9 fL [facility] NRBC% auto 0.0 % [facility] NRBC Absolute 0.000 0.000 - 0.000 x10(3)/mc L [facility] Blood specimen (specimen) 07/11/2019 5:46 PM EDT 07/11/2019 5:55 PM EDT Narrative Resulting Agency Comment Spec In Lab Cathy Dillon APRN HEMATOLOGY ORDERA BLES Performing Organization Address [facility] Co de Phone Number [facility] [place] [address] * Ferritin (07/11/2019 5:46 PM EDT) [facility] Ferritin 34 30 - 400 ng/mL [facility] Comment: Pediatric reference ranges not verified at [facility], interpret with caution. Reference ranges for females greater than 50 years of age approach values for men, i.e., 30-400 ng/mL. Blood specimen (specimen) 07/11/2019 5:46 PM EDT 07/11/2019 5:55 PM EDT Narrative Resulting Agency Comment Spec In Lab Cathy Dillon COB SAWYER CHEMISTRY ORDERAB LES Performing Organization Address [facility]/ZIP Co de Phone Number [facility] [place] [address] * (ABNORMAL) Iron and TIBC (07/11/2019 5:46 PM EDT) [facility] Iron 38 30 - 150 mcg/dL [facility] TIBC 323 250 - 450 mcg/dL [facility] Iron Saturation 12(L) 20 - 50 % [facility] Blood specimen (specimen) 07/11/2019 5:46 PM EDT 07/11/2019 5:55 PM EDT Narrative Resulting Agency Comment Spec In Lab Cathy Dillon APRN CHEMISTRY ORDERAB LES [facility] [place] [address] documented in this encounter Visit Diagnoses Diagnosis Iron deficiency Iron deficiency anemia, unspecified Disorder of iron metabolism Other disorders of iron metabolism Intestinal malabsorption, unspecified type S/P gastric bypass Bariatric surgery status Redundant skin Other specified hypertrophic and atrophic condition of skin Weight gain following gastric bypass surgery documented in this encounter Care Teams Manager Enterprise Content Management Relationship Specialty Start Date End Date Ruth Munoz APRN [address] [place] [address] PCP - General Family Medicine 02/05/19 documented as of this encounter
--- OUTSIDE RECORDS SUMMARY | 2024-09-18 16:11 | XMS_ITS | Encounter Summary ---
[place] [address] Care Team Providers Care School Aide Name Role Phone MunozAidan jeromeantony Mcelroy APRN Primary Care Provider + Reason for Visit * Reason Onset Date Comments Prior Authorization 02/14/2020 Humira Encounter Details Date Type Department Care Team (Late st Contact Info) Description 02/14/2020 [place] [address] Louis Baeza, [facility] Prior Authorization (Humira) Social History Tobacco Use [...] REQUIREMENT: Can fill with Pharmacy CASE/REFERENCE # [id number] APPROVAL NOTIFICATION RECEIVED VIA: Fax COPAY: $ 3.00 COPAY ASSISTANCE NEEDED?: No NOTES: Provider submitted the [facility], Medication Prior Authorization Patient: Martha Benoit Patient : 1965 Patient Address: [facility] [address] [address] (home) Medication: Humira Pen Kit PS/UV [place] Fax: Physician: Galdino Gillilnad Sent Via: Fax Kessler: Ref/Jaguar/BERE#: Medication Strength [...] AM EDT TH Visit (TeleHealth) [place] [address] Wyatt Higgins MD [facility] [place] [address] documented as of this encounter Visit Diagnoses Not on filedocumented in this encounter Care Teams School Aide Relationship Specialty Start Date End Date Ruth Munoz, HEATING AND VENTILATING WORKER [address] [place] [address] PCP - General Family Medicine 02/05/19 documented as of this encounter
--- OUTSIDE RECORDS SUMMARY | 2024-09-18 16:12 | XMS_ITS | Encounter Summary ---
Author Organization [facility] [place] [address] Care Team Providers Care Recycling Center Operator Name Role Phone Patrick Clement MD Primary Care Provider [phone] Reason for Visit * Reason Comments Psoriasis Encounter Details Date Type Department Care Team (Late st Contact Info) Description 06/07/2018 8:15 AM EDT Office Visit Dermatology at [address] [place] [address] Galdino Gilliland MD [address], [place] [address] Psoriasis Social History Tobacco Use Types Packs/Day [...] AM EDT TH Visit (TeleHealth) [place] [address] Wyatt Higgins MD [facility] [place] [address] documented as of this encounter Visit Diagnoses Diagnosis Psoriasis Other psoriasis documented in this encounter Care Teams Recycling Center Operator Relationship Specialty Start Date End Date Patrick Clement MD PCP - General Family Medicine 06/07/18 02/04/19 documented as of this encounter
--- OUTSIDE RECORDS SUMMARY | 2024-09-18 16:12 | XMS_ITS | Encounter Summary ---
Author Organization [facility] [place] [address] Care Team Providers Care Therapeutic Activities Services Worker Name Role Phone Patrick Clement MD Primary Care Provider [phone] Reason for Visit * Reason Comments Medication Refill Encounter Details Date Type Department Care Team (Late st Contact Info) Description 09/23/2018 [place] [address] Judith Reinoso MD [facility] [place] [address] Social History Tobacco Use Types Packs/Day Years [...] encounter Miscellaneous Notes * Telephone Encounter - Tarcy Tavarez LPN - 09/25/2018 9:33 AM EST [...] AM EDT TH Visit (TeleHealth) [place] [address] Wyatt Higgins MD [facility] [place] [address] documented as of this encounter Visit Diagnoses Not on filedocumented in this encounter Care Teams Therapeutic Activities Services Worker Relationship Specialty Start Date End Date Patrick Clement MD PCP - General Family Medicine 06/07/18 02/04/19 documented as of this encounter
--- OUTSIDE RECORDS SUMMARY | 2024-09-18 16:12 | XMS_ITS | Encounter Summary ---
Author Organization [facility] [place] [address] Care Team Providers Care Information Technology Data Analyst Name Role Phone Nanda Read MD Primary Care Provider [phone] Reason for Visit * Reason Comments Medication Refill Encounter Details Date Type Department Care Team (Late st Contact Info) Description 06/02/2018 Ref[place] [address] Judith Reinoso MD [facility] [place] [place] [address] Social History Tobacco Use Types Packs/Day Years [...] AM EDT TH Visit (TeleHealth) [place] [address] Wyatt Higgins MD [facility] [place] [address] documented as of this encounter Visit Diagnoses Not on filedocumented in this encounter Care Teams Information Technology Data Analyst Relationship Specialty Start Date End Date Nanda Read MD [facility] [address] [place] [address] PCP - General 09/14/10 06/06/18 documented as of this encounter
--- OUTSIDE RECORDS SUMMARY | 2024-09-18 16:12 | XMS_ITS | Encounter Summary ---
[place] [address] Care Team Providers Care English Professor Name Role Phone Patrick Clement MD Primary Care Provider [phone] Encounter Details Date Type Department Care Team (Late st Contact Info) Description 02/04/2019 Orders Only [place] [address] Cathy Dillon, WEB EDITOR [facility] [place] [address] Disorder of iron metabolism; Status post bariatric [...] AM EDT TH Visit (TeleHealth) [place] [address] Wyatt Higgins MD [facility] [place] [address] documented as of this encounter Results * Ferritin (02/05/2019 10:26 AM EDT) Pathologist [facility] Ferritin 46 30 - 400 ng/mL [facility] Comment: Pediatric reference ranges not verified at [facility], interpret with caution. Reference ranges for females greater than 50 years of age approach values for men, i.e., 30-400 ng/mL. Blood specimen (specimen) 02/05/2019 10:26 AM EDT 02/05/2019 10:36 AM EDT Narrative Resulting Agency Comment Spec In Lab Cathy Dillon WEB EDITOR CHEMISTRY ORDERAB LES [facility] [place] [address] * (ABNORMAL) Hemogram (02/05/2019 10:26 AM EDT) [facility] White Blood Cell 11.5(H) 4.0 - 9.5 x10(3)/mc L [facility] Red Blood Cell 5.17 4.00 - 5.21 x10(6)/mc L [facility] Hemoglobin 14.0 11.7 - 15.5 gm/dL [facility] Hematocrit 44.5 35.7 - 45.8 % [facility] Mean Cell Volume 86.1 82.6 - 94.4 fL [facility] Mean Cell Hemoglobin 27.1 27.1 - 32.0 pg [facility] Mean Cell Hemoglobin Concentration 31.5(L) 31.7 - 35.0 gm/dL [facility] Platelet 251 145 - 357 x10(3)/mc L [facility] RDW Standard Deviation 40.6 37.0 - 46.0 fL [facility] RDW coefficient of variation 13.0 11.5 - 14.1 % [facility] Mean Platelet Volume 10.5 7.6 - 12.9 fL [facility] NRBC% auto 0.0 % [facility] NRBC Absolute 0.000 0.000 - 0.000 x10(3)/mc L [facility] Blood specimen (specimen) 02/05/2019 10:26 AM EDT 02/05/2019 10:36 AM EDT Narrative Resulting Agency Comment Spec In Lab Cathy Dillon APRN HEMATOLOGY ORDERA BLES Performing Organization Address City/State/[facility] Co de Phone Number [facility] [place] [address] documented in this encounter Visit Diagnoses Diagnosis Disorder of iron metabolism Other disorders of iron metabolism Status post bariatric surgery Bariatric surgery status Intestinal malabsorption, unspecified type Iron deficiency Iron deficiency anemia, unspecified documented in this encounter Care Teams English Professor Relationship Specialty Start Date End Date Patrick Clement MD PCP - General Family Medicine 06/07/18 02/04/19 documented as of this encounter
--- OUTSIDE RECORDS SUMMARY | 2024-09-18 16:12 | XMS_ITS | Encounter Summary ---
[place] [address] Care Team Providers Care Sleeping Car Service Attendant Name Role Phone Patrick Clement MD Primary Care Provider [phone] Encounter Details Date Type Department Care Team (Late st Contact Info) Description 01/21/2019 Specialty [place] [phone] Sravanthi Cardoza RPH Social History Tobacco Use [...] Cardoza RPH Comprehensive Medication Management (CMM) Martha oMon Benoit MsEdvin Benoit is a 53 y.o. [...] AM EDT TH Visit (TeleHealth) [place] [address] Wyatt Higgins MD [facility] [place] [address] documented as of this encounter Visit Diagnoses Not on filedocumented in this encounter Care Teams Sleeping Car Service Attendant Relationship Specialty Start Date End Date Patrick Clement MD PCP - General Family Medicine 06/07/18 02/04/19 documented as of this encounter
--- OUTSIDE RECORDS SUMMARY | 2024-09-18 16:12 | XMS_ITS | Encounter Summary ---
[place] [address] Care Team Providers Care General Assistant Name Role Phone Patrick Clement MD Primary Care Provider [phone] Encounter Details Date Type Department Care Team (Late st Contact Info) Description 07/31/2018 Telephone [place] [phone] Julia Duarte Social History Tobacco Use Types [...] AM EDT TH Visit (TeleHealth) [place] [address] Wyatt Higgins MD [facility] [place] [address] documented as of this encounter Visit Diagnoses Not on filedocumented in this encounter Care Teams General Assistant Relationship Specialty Start Date End Date Patrick Clement MD PCP - General Family Medicine 06/07/18 02/04/19 documented as of this encounter
--- OUTSIDE RECORDS SUMMARY | 2024-09-18 16:12 | XMS_ITS | Encounter Summary ---
Author Organization [facility] [place] [address] Care Team Providers Care Hiv Nurse Name Role Phone Nanda Read MD Primary Care Provider Reason for Visit * Reason Onset Date Comments Medication Refill 05/08/2018 Encounter Details Date Type Department Care Team (Late st Contact Info) Description 05/08/2018 Refill [place] [address] Judith Reinoso MD [facility] [place] [address] Social History Tobacco Use Types Packs/Day Years [...] AM EDT TH Visit (TeleHealth) [place] [address] Wyatt Higgins MD [facility] [place] [address] documented as of this encounter Visit Diagnoses Not on filedocumented in this encounter Care Teams Hiv Nurse Relationship Specialty Start Date End Date Nanda Read MD [facility] [address] [place] [address] PCP - General 09/14/10 06/06/18 documented as of this encounter
--- OUTSIDE RECORDS SUMMARY | 2024-09-18 16:12 | XMS_ITS | Encounter Summary ---
Author Organization [facility] [place] [address] Care Team Providers Care Photographic Enlarger Operator Name Role Phone Nanda Read MD Primary Care Provider Reason for Visit * Auth/Cert Specialty Diagnoses / Procedures Referred By Patricio monsivais Referred To Contact Diagnoses Localized adiposity Abdominal pannus Procedures PRO EXCISE EXCESS SKIN TISSUE, ABDOMEN ABDOMINOPLASTY (WRVU 17.11) Referral ID Status Reason Start Date Expiration Date Visits Re quested Visits Authorized [id number] 1 1 Encounter Details Date Type Department Care Team (Late st Contact Info) Description 06/29/2017 2:22 PM EDT - 06/29/2017 5:20 PM EDT Surgery [place] [address] Chetan Lund MD [facility] [place] [address] PANNICULECTOMY (WRVU 17.11) Social History Tobacco Use [...] : 51 y.o. 1965 Language, race, ethnicity: Citizen Of [place], White, Not nor Date of Admission: 06/29/2017 [...] Hospital Course: Patient was admitted electively [place] [facility] via the same day surgery program and [...] 17.11) performed by Chetan Lund MD at [facility] MAIN OR ??? PRO LAP GASTRIC BYPASS/BRADY-EN-Y N/A 01/04/2016 @LAPAROSCOPIC GASTROPLASTY, performed by Jose Mai MD at [facility] MAIN OR ??? PRO UPPER GI ENDOSCOPY, BIOPSY 11/16/2011 EGD WITH BIOPSY performed by ALISA RICHARDS at [facility] ENDOSCOPY ??? PRO UPPER GI ENDOSCOPY, DIAGNOSTIC N/A 11/04/2015 EGD, UPPER GI ENDOSCOPY performed by Kisha Doss MD at [facility] ENDOSCOPY ??? PRO UPPER GI ENDOSCOPY, DIAGNOSTIC N/A 01/04/2016 ENDOSCOPY, UPPER GI, DIAGNOSTIC, WITH OR WITHOUT SPECIMENS performed by Jose Mai MD at [facility] MAIN OR ??? TUBAL LIGATION ??? UPPER GI ENDOSCOPY, EXAM 11/16/2011 UPPER GI ENDOSCOPY performed by ALISA RICHARDS at [facility] ENDOSCOPY Procedures: 06/29/2017 Surgeon(s) and Role: [...] 1 capsule by mouth every 3 days. 00283 Units Quantity: 30 capsule Refills: 3 gabapentin [...] nurses, you may call the clinic at [phone] and schedule an appointment to have your [...] to minimize scarring. Do not use any dalp-uzo-xfiyrbh lotions, solutions, or herbal preparations on your [...] entire course of antibiotics, please consult a master data analyst or your primary care provider. Please be [...] called in to our prescription line at [phone]. Narcotic renewals may be requested from 8am-4pm [...] office hours: Monday - Monday 8am-5pm call [phone]. On weekends or after hours call [phone] and ask the slasher operator to page the plastic surgery resident power generation engineer. Post Op Plan: - Please follow-up in plastic surgery clinic as scheduled for wound check, drain removal and activity modification update Future Appointments Date Time Provider Department Center 07/11/2017 11:20 AM Christine Whitley APRN Leb Plas 4 [facility] 08/10/2017 9:30 AM ZULY THREE L Lab [facility] 08/10/2017 10:30 AM Judith Reinoso MD [facility] Endo [facility] 08/10/2017 11:30 AM Yancy Pennington DO Leb Neuro [facility] General Instructions None Future Appointments and Orders Future Appointments Provider Department Dept Phone 07/11/2017 11:20 AM Christine Whitley APRN Plastic Surgery at [place] [phone] 08/10/2017 9:30 AM ZULY THREE L Lab 3L [facility] [phone] 08/10/2017 10:30 AM Judith Reinoso MD Endocrinology at [place] [phone] 08/10/2017 11:30 AM Yancy Pennington DO Neurology at [place] [phone] Discharge Medications: Your Medications New Medications Dose [...] 1 capsule by mouth every 3 days. 13018 Units Quantity: 30 capsule Refills: 3 gabapentin [...] AM Christine Whitley APRN Plastic Surgery at [place] [phone] 08/10/2017 9:30 AM LAB, THREE L Lab 3L [facility] [phone] 08/10/2017 10:30 AM Judith Reinoso MD Endocrinology at [place] [phone] 08/10/2017 11:30 AM Yancy Pennington DO Neurology at [place] [phone] Future Appointments Date Time Provider Department Center 07/11/2017 11:20 AM Christine Whitley APRN Leb Plas 4 [facility] 08/10/2017 9:30 AM MARCK CARUSO L Lab [facility] 08/10/2017 10:30 AM Judith Reinoso MD Leb Endo [facility] 08/10/2017 11:30 AM Yancy Pennington DO Leb Neuro [facility] Primary Care Provider: Nanda Read MD [phone] VNA: No discharge procedures on file. General Instructions None Your care was managed by the Plastic Surgery[facility] at [facility]. If you haveany questions or concerns, please feel free to contact us. Provider Contact Information: Plastic Surgery Clinic: [facility] (after business hours): documented in this encounter [...] nurses, you may call the clinic at [phone] and schedule an appointment to have your [...] to minimize scarring. Do not use any jcdg-xcs-vhjfiqt lotions, solutions, or herbal preparations on your [...] entire course of antibiotics, please consult a master data analyst or your primary care provider. Please be [...] called in to our prescription line at [phone]. Narcotic renewals may be requested from 8am-4pm [...] office hours: Monday - Monday 8am-5pm call [phone]. On weekends or after hours call [phone] and ask the slasher operator to page the plastic surgery resident power generation engineer. Post Op Plan: - Please follow-up in plastic surgery clinic as scheduled for wound check, drain removal and activity modification update Future Appointments Date Time Provider Department Center 07/11/2017 11:20 AM Christine Whitley APRN Leb Plas 4 [facility] 08/10/2017 9:30 AM LAB, THREE L Lab 3L [facility] 08/10/2017 10:30 AM Judith Reinoso MD Leb Endo [facility] 08/10/2017 11:30 AM Yancy Pennington DO Leb Neuro [facility] * Attachments The following attachments cannot be sent through Care Everywhere. * SURGICAL DRAIN CARE (GRENADIAN) documented in this encounter Medications at Time [...] - hemodynamically stable Lucho Mart MD Pager: [phone] documented in this encounter H&P Notes * [...] GASTROPLASTY, performed by Jose Mai MD at [facility] MAIN OR ??? PRO UPPER GI ENDOSCOPY, BIOPSY 11/16/2011 EGD WITH BIOPSY performed by ALISA RICHARDS at [facility] ENDOSCOPY ??? PRO UPPER GI ENDOSCOPY, DIAGNOSTIC N/A 11/04/2015 EGD, UPPER GI ENDOSCOPY performed by Kisha Doss MD at [facility] ENDOSCOPY ??? PRO UPPER GI ENDOSCOPY, DIAGNOSTIC N/A 01/04/2016 ENDOSCOPY, UPPER GI, DIAGNOSTIC, WITH OR WITHOUT SPECIMENS performed by Jose Mai MD at [facility] MAIN OR ??? TUBAL LIGATION ??? UPPER GI ENDOSCOPY, EXAM 11/16/2011 UPPER GI ENDOSCOPY performed by ALISA RICHARDS at [facility] ENDOSCOPY No Known Allergies No current [...] (WRVU 17.11) MODIFIER PANNICULECTOMY Opioid PDMP 04/27/2017 [place] PD[place] Query Date 06/29/2017 [place] QUERY DATE: 06/29/17 Risk Assessment Category: [...] chart. Lorie Ovalle PA-C Plastic Surgery Pager [phone] documented in this encounter Miscellaneous Notes * [...] remove SANDRA's-pt. lives 4 hours away, up bode Activity/Self Care Review of Systems Equipment Currently Used at Home walker, rolling Living Environment Transportation Available family or friend will provide * Op Note - Chetan Lund MD - 06/29/2017 5:33 PM EDT [facility] Operative Note Patient Name: Martha Benoit : [id number] MR#: [id number] Case Date: 06/29/2017 Surgeon: Surgeon(s) and Role: [...] combination of hemostatic clips and electrocautery. A #19-Azeri Isacc style drains were inserted and brought [...] Operative Note Patient Name: Martha Benoit : [id number] MR#: [id number] Case Date: 06/29/2017 Surgeon: Surgeon(s) and Role: [...] AM EDT TH Visit (TeleHealth) [place] [address] Wyatt Higgins MD [facility] [place] [address] documented as of this encounter Procedures Procedure [...] * POCT Glucose (06/30/2017 9:22 AM EDT) Glucose, POC 169 65 - 199 mg/dL [facility] Comment: Supplemental ranges: <140 mg/dL before meals <180 mg/dL all other times of the day Blood specimen (specimen) 06/30/2017 9:22 AM EDT 06/30/2017 9:22 AM EDT Chetan Lund MD POINT OF CARE TEST O RDERABLES Performing Organization Address City/State/[facility] Co de Phone Number [facility] [place] [address] * POCT Glucose (06/30/2017 6:30 AM EDT) Glucose, POC 179 65 - 199 mg/dL [facility] Comment: Supplemental ranges: <140 mg/dL before meals <180 mg/dL all other times of the day Blood specimen (specimen) 06/30/2017 6:30 AM EDT 06/30/2017 6:30 AM EDT Chetan Lund MD POINT OF CARE TEST O RDERAGONZALO Performing Organization Address [facility] Co de Phone Number [facility] [place] [address] * (ABNORMAL) POCT Glucose (06/30/2017 4:38 AM EDT) Glucose, POC 291(H) 65 - 199 mg/dL [facility] Comment: Supplemental ranges: <140 mg/dL before meals <180 mg/dL all other times of the day Blood specimen (specimen) 06/30/2017 4:38 AM EDT 06/30/2017 4:38 AM EDT Chetan Lund MD POINT OF CARE TEST O CHARLESERAGONZALO Performing Organization Address [facility] Co de Phone Number [facility] [place] [address] * (ABNORMAL) POCT Glucose (06/30/2017 2:30 AM EDT) Glucose, POC 243(H) 65 - 199 mg/dL [facility] Comment: Supplemental ranges: <140 mg/dL before meals <180 mg/dL all other times of the day Blood specimen (specimen) 06/30/2017 2:30 AM EDT 06/30/2017 2:30 AM EDT Chetan Lund MD POINT OF CARE TEST O CHARLESERAGONZALO Performing Organization Address [facility] Co de Phone Number [facility] [place] [address] * (ABNORMAL) POCT Glucose (06/29/2017 11:48 PM EDT) Glucose, POC 386(H) 65 - 199 mg/dL [facility] Comment: Supplemental ranges: <140 mg/dL before meals <180 mg/dL all other times of the day Blood specimen (specimen) 06/29/2017 11:48 PM EDT 06/29/2017 11:48 PM EDT Chetan Lund MD POINT OF CARE TEST O RDERABLES Performing Organization Address [facility]/ZIP Co de Phone Number [facility] [place] [address] * POCT Glucose (06/29/2017 8:22 PM EDT) Glucose, POC 187 65 - 199 mg/dL [facility] Comment: Supplemental ranges: <140 mg/dL before meals <180 mg/dL all other times of the day Blood specimen (specimen) 06/29/2017 8:22 PM EDT 06/29/2017 8:22 PM EDT Chetan Lund MD POINT OF CARE TEST O RDERABLES Performing Organization Address [facility] Co de Phone Number [facility] [place] [address] * POCT Glucose (06/29/2017 6:05 PM EDT) Glucose, POC 159 65 - 199 mg/dL [facility] Comment: Supplemental ranges: <140 mg/dL before meals <180 mg/dL all other times of the day Blood specimen (specimen) 06/29/2017 6:05 PM EDT 06/29/2017 6:05 PM EDT Chetan Lund MD POINT OF CARE TEST O RDERABLES Performing Organization Address City/[facility]/ZIP Co de Phone Number [facility] [place] [address] * POCT Glucose (06/29/2017 1:49 PM EDT) Glucose, POC 103 65 - 199 mg/dL [facility] Comment: Supplemental ranges: <140 mg/dL before meals <180 mg/dL all other times of the day Blood specimen (specimen) 06/29/2017 1:49 PM EDT 06/29/2017 1:49 PM EDT Chetan Lund MD POINT OF CARE TEST O RDRASHIDA [facility] [place] [address] * POCT HGB (06/29/2017) POC Hemoglobin 13.4 [...] Starting on Ava 06/29/17 at 1734, Until Mon06/29/17 at 1934, For [...] 1 %-1:200,000 injection ONCE PRN, Starting on Ava 06/29/17 at [...] Ava 06/29/17 at 2100, Until Discontinued, Routine 2100 (Not Given - Provider: Lilian Haley RN - Reason: Patient/family refused) 0901 (Not Given - Provider: Destiny Moody RN - Reason: Patient/family refused) fluconazole (DIFLUCAN) tablet 200 mg 200 mg, Oral, EVERY 24 HOURS, 2 doses, First dose on Mon06/29/17 at 1930, Last dose on Mon06/30/17 at 1930, STAT, Indication for (Active or Suspected): Skin/Skin Structure 221 (Given - Provider: Lilian Haley RN) fluconazole 400mg in sodium chloride 0.9% 200mL (COMPLETED) 400 mg, Intravenous, ONCE, 1 dose, On Mon06/29/17 at 1645, Administer over 120 Minutes, Indication for (Active or Suspected): Prophylaxis, Restricted Antibiotic: Please indicate the most appropriate choice: Pre-approved Indication (State the indication in Comments field) / surgical prophylaxis 1707 (Given - Provider: Ofelia Encarnacion) gabapentin (NEURONTIN) capsule 300 mg 300 mg, Oral, NIGHTLY, First dose on Mon06/29/17 at 2100, Until Discontinued, Routine 2034 (Given - Provider: Lilian Haley RN) insulin aspart protamine-insulin aspart 70/30 (NovoLOG MIX 70/30 PEN) injection 15 Units 15 Units, Subcutaneous, 2 TIMES DAILY BEFORE MEALS, First dose on Mon06/30/17 at 0730, Until Discontinued, Routine 638 (Given - Provid er: Lilian Haley RN) [...] Routine 003 (Given - Provid er: Lilian aHley RN)0900 (Given - Provider: Destiny Moody RN) [...] Starting on Ava 06/29/17 at 1345, Until Mon06/29/17 at 1934, Day of Surgery (Day of [...] bacitracin ointment (CANCELED) ONCE PRN, Starting on Mon06/29/17 at 1720, Until Mon06/30/17 at 1427, Intra-Operative (Intra-Procedure) 1720 (Given - Provider: Chetan Lund MD) bisacodyl (DULCOLAX) suppository 10 mg 10 mg, Rectal, DAILY PRN, Starting on Mon06/29/17 at 1956, Until Mon06/30/17 at 1427, Constipation, [...] Arias RN)183 (Given - Provider: Emilie Arias RN)185 (Given - Provider: Emilie Arias RN) lidocaine [...] and if ineffective use promethazine., PACU Recovery 1855 (Given - Provider: Emilie Arias RN) sodium [...] Intramuscular, EVERY 1 HOUR PRN, Starting on 06/29/17 at 195, Until Mon06/30/17 at 1427, Low blood sugar, [...] Unit) documented in this encounter Care Teams Photographic Enlarger Operator Relationship Specialty Start Date End Date Nanda Read MD [facility] [address] [place] [address] PCP - General 09/14/10 06/06/18 documented as of this encounter
--- OUTSIDE RECORDS SUMMARY | 2024-09-18 16:12 | XMS_ITS | Encounter Summary ---
Author Organization [facility] [place] [address] Care Team Providers Care Composition Roll Maker And Cutter Name Role Phone Patrick Clement MD Primary Care Provider [phone] Reason for Visit * Reason Comments Medication Refill Encounter Details Date Type Department Care Team (Late st Contact Info) Description 11/12/2018 Refill [place] [id number] Judith Reinoso MD [facility] [place] [address] Social History Tobacco Use Types Packs/Day Years [...] EDT TH Visit (TeleHealth) [place] [phone] Wyatt Higgins MD [facility] [place] [address] documented as of this encounter Visit Diagnoses Not on filedocumented in this encounter Care Teams Composition Roll Maker And Cutter Relationship Specialty Start Date End Date Patrick Clement MD PCP - General Family Medicine 06/07/18 02/04/19 documented as of this encounter
--- OUTSIDE RECORDS SUMMARY | 2024-09-18 16:12 | XMS_ITS | Encounter Summary ---
[place] [address] Care Team Providers Care Paper Box Maker Name Role Phone Patrick Clement MD Primary Care Provider [phone] Encounter Details Date Type Department Care Team (Late st Contact Info) Description 07/31/2018 Telephone General [place] [phone] Taylor Vance, CHARLES Social History Tobacco Use [...] her omeprazole and wants it sent to [facility]. Informed patient that Bradenenis out this week but will get back to her next week. Patient is receptive to this. documented in this encounter Plan of Treatment Upcoming Encounters Date Type Department Care Team (Late st Contact Info) Description 02/19/2025 9:00 AM EDT TH Visit (TeleHealth) [place]rology [place] [address] Wyatt Higgins MD [facility] [place] [address] documented as of this encounter Visit Diagnoses Not on filedocumented in this encounter Care Teams Paper Box Maker Relationship Specialty Start Date End Date Patrick Clement MD PCP - General Family Medicine 06/07/18 02/04/19 documented as of this encounter
--- OUTSIDE RECORDS SUMMARY | 2024-09-18 16:12 | XMS_ITS | Encounter Summary ---
Author Organization [facility] [place] [address] Care Team Providers Care Banquet Steward Name Role Phone Nanda Read MD Primary Care Provider [phone] Reason for Visit * Auth/Cert Specialty Diagnoses / Procedures Referred By Patricio monsivais Referred To Contact Diagnoses Localized adiposity Abdominal pannus Procedures PRO EXCISE EXCESS SKIN TISSUE, ABDOMEN ABDOMINOPLASTY (WRVU 17.11) Referral ID Status Reason Start Date Expiration Date Visits Re quested Visits Authorized [id number] 1 1 Encounter Details Date Type Department Care Team (Latest Contact Info) Description 06/29/2017 12:24 PM EDT - 06/30/2017 12:22 PM EDT Hospital Encounter [place] [address] Chetan Lund MD [facility] [place] [address] Discharge Disposition: Home Social History Tobacco Use [...] : 51 y.o. 1965 Language, race, ethnicity: Cymraes, White, Not nor Date of Admission: 06/29/2017 [...] Hospital Course: Patient was admitted electively to [facility] via the same day surgery program and [...] 17.11) performed by Chetan Lund MD at [facility] MAIN OR ??? PRO LAP GASTRIC BYPASS/BRADY-EN-Y N/A 01/04/2016 @LAPAROSCOPIC GASTROPLASTY, performed by Jose Mai MD at [facility] OR ??? PRO UPPER GI ENDOSCOPY, BIOPSY 11/16/2011 EGD WITH BIOPSY performed by ALISA RICHARDS at [facility] ENDOSCOPY ??? PRO UPPER GI ENDOSCOPY, DIAGNOSTIC N/A 11/04/2015 EGD, UPPER GI ENDOSCOPY performed by Kisha Doss MD at [facility] ENDOSCOPY ??? PRO UPPER GI ENDOSCOPY, DIAGNOSTIC N/A 01/04/2016 ENDOSCOPY, UPPER GI, DIAGNOSTIC, WITH OR WITHOUT SPECIMENS performed by Jose Mai MD at [facility] OR ??? TUBAL LIGATION ??? UPPER GI ENDOSCOPY, EXAM 11/16/2011 UPPER GI ENDOSCOPY performed by ALISA RICHARDS at [facility] ENDOSCOPY Procedures: 06/29/2017 Surgeon(s) and Role: * [...] 1 capsule by mouth every 3 days. 74587 Units Quantity: 30 capsule Refills: 3 gabapentin [...] nurses, you may call the clinic at [phone] and schedule an appointment to have your [...] to minimize scarring. Do not use any cdly-oxs-dsudiwb lotions, solutions, or herbal preparations on your [...] entire course of antibiotics, please consult a quarrying manager or your primary care provider. Please be [...] called in to our prescription line at [phone]. Narcotic renewals may be requested from 8am-4pm [...] office hours: Monday - Monday 8am-5pm call [phone]. On weekends or after hours call [phone] and ask the impact hammer operator to page the plastic surgery resident applications specialist. Post Op Plan: - Please follow-up in plastic surgery clinic as scheduled for wound check, drain removal and activity modification update Future Appointments Date Time Provider Department Center 07/11/2017 11:20 AM Christine Whitley APRN [facility] 08/10/2017 9:30 AM ZULY THREE L Lab 3L [facility] 08/10/2017 10:30 AM Judith Reinoso MD [facility] 08/10/2017 11:30 AM Yancy Pennington DO Leb Neuro [facility] General Instructions None Future Appointments and Orders Future Appointments Provider Department Dept Phone 07/11/2017 11:20 AM Christine Whitley APRN Plastic Surgery at [place] [phone] 08/10/2017 9:30 AM LAB, THREE L Lab 3L [facility] [phone] 08/10/2017 10:30 AM Judith Reinoso MD Endocrinology at [place] [phone] 08/10/2017 11:30 AM Yancy Pennington DO Neurology at [place] [phone] Discharge Medications: Your Medications New Medications Dose [...] 1 capsule by mouth every 3 days. [id number] Units Quantity: 30 capsule Refills: 3 gabapentin [...] AM Christine Whitley APRN Plastic Surgery at [place] [phone] 08/10/2017 9:30 AM LAB, THREE L Lab 3L [facility] [phone] 08/10/2017 10:30 AM Judith Reinoso MD Endocrinology at [place] [phone] 08/10/2017 11:30 AM Yancy Pennington DO Neurology at [place] [phone] Future Appointments Date Time Provider Department Center 07/11/2017 11:20 AM Christine Whitley APRN [facility] 4 [facility] 08/10/2017 9:30 AM LAB, THREE L Lab 3L [facility] 08/10/2017 10:30 AM Judith Reinoso MD [facility] 08/10/2017 11:30 AM Yancy Pennington DO Leb Neuro [facility] Primary Care Provider: Nanda Read MD [phone] VNA: No discharge procedures on file. General Instructions None Your care was managed by the Plastic [facility] at [facility]. If you haveany questions or concerns, please feel free to contact us. Provider Contact Information: Plastic Surgery Clinic: [facility] (after business hours): documented in this encounter [...] nurses, you may call the clinic at [phone] and schedule an appointment to have your [...] to minimize scarring. Do not use any xqjb-wep-tovtllr lotions, solutions, or herbal preparations on your [...] entire course of antibiotics, please consult a quarrying manager or your primary care provider. Please be [...] called in to our prescription line at [phone]. Narcotic renewals may be requested from 8am-4pm [...] office hours: Monday - Monday 8am-5pm call [phone]. On weekends or after hours call [phone] and ask the impact hammer operator to page the plastic surgery resident applications specialist. Post Op Plan: - Please follow-up in plastic surgery clinic as scheduled for wound check, drain removal and activity modification update Future Appointments Date Time Provider Department Center 07/11/2017 11:20 AM Christine Whitley APRN [facility] 4 [facility] 08/10/2017 9:30 AM LAB[facility] 08/10/2017 10:30 AM Judith Reinoso MD [facility] 08/10/2017 11:30 AM Yancy Pennington DO [facility] * Attachments The following attachments cannot be sent through Care Everywhere. * SURGICAL DRAIN CARE (KINYARWANDA) documented in this encounter Medications at [...] breathing at this time-later given an Incent. [place]. with post-op teaching. Pt. States her pain [...] - hemodynamically stable Lucho Mart MD Pager: [phone] documented in this encounter H&P Notes * [...] GASTROPLASTY, performed by Jose Mai MD at [facility] MAIN OR ??? PRO UPPER GI ENDOSCOPY, BIOPSY 11/16/2011 EGD WITH BIOPSY performed by ALISA RICHARDS at [facility] ENDOSCOPY ??? PRO UPPER GI ENDOSCOPY, DIAGNOSTIC N/A 11/04/2015 EGD, UPPER GI ENDOSCOPY performed by Kisha Doss MD at [facility] ENDOSCOPY ??? PRO UPPER GI ENDOSCOPY, DIAGNOSTIC N/A 01/04/2016 ENDOSCOPY, UPPER GI, DIAGNOSTIC, WITH OR WITHOUT SPECIMENS performed by Jose Mai MD at [facility] MAIN OR ??? TUBAL LIGATION ??? UPPER GI ENDOSCOPY, EXAM 11/16/2011 UPPER GI ENDOSCOPY performed by ALISA RICHARDS at [facility] ENDOSCOPY No Known Allergies No current facility-administered [...] (WRVU 17.11) MODIFIER PANNICULECTOMY [place]io[place] 04/27/2017 [place] Query Date 06/29/2017 [place] QU[place] DATE: 06/29/17 Risk Assessment Category: [...] chart. Lorie Ovalle PA-C Plastic Surgery Pager [phone] documented in this encounter Miscellaneous Notes * [...] remove SANDRA's-pt. lives 4 hours away, up erie Activity/Self Care Review of Systems Equipment Currently Used at Home walker, rolling Living Environment Transportation Available family or friend will provide * Op Note - Chetan Lund MD - 06/29/2017 5:33 PM EDT [facility] Operative Note Patient Name: Martha Benoit : [id number] MR#: [id number] Case Date: 06/29/2017 Surgeon: Surgeon(s) and Role: [...] combination of hemostatic clips and electrocautery. A #19-Swedish Isacc style drains were inserted and brought [...] Operative Note Patient Name: Martha Benoit : [id number] MR#: [id number] Case Date: 06/29/2017 Surgeon: Surgeon(s) and Role: [...] AM EDT TH Visit (TeleHealth) [place] [address] Wyatt Higgins MD [facility] [place] [address] documented as of this encounter Procedures Procedure [...] Glucose, POC 169 65 - 199 mg/dL [facility] Comment: Supplemental ranges: <140 mg/dL before meals <180 mg/dL all other times of the day Blood specimen (specimen) 06/30/2017 9:22 AM EDT 06/30/2017 9:22 AM EDT Chetan Lund MD POINT OF CARE TEST O RDERABLES Performing Organization Address City/State/[facility] Co de Phone Number [facility] [place] [address] * POCT Glucose (06/30/2017 6:30 AM EDT) Glucose, POC 179 65 - 199 mg/dL [facility] Comment: Supplemental ranges: <140 mg/dL before meals <180 mg/dL all other times of the day Blood specimen (specimen) 06/30/2017 6:30 AM EDT 06/30/2017 6:30 AM EDT Chetan Lund MD POINT OF CARE TEST O SHAYAN Performing Organization Address [facility] Co de Phone Number [facility] [place] [address] * (ABNORMAL) POCT Glucose (06/30/2017 4:38 AM EDT) Glucose, POC 291(H) 65 - 199 mg/dL [facility] Comment: Supplemental ranges: <140 mg/dL before meals <180 mg/dL all other times of the day Blood specimen (specimen) 06/30/2017 4:38 AM EDT 06/30/2017 4:38 AM EDT Chetan Lund MD POINT OF CARE TEST O SHAYAN Performing Organization Address [facility] Co de Phone Number [facility] [place] [address] * (ABNORMAL) POCT Glucose (06/30/2017 2:30 AM EDT) Glucose, POC 243(H) 65 - 199 mg/dL [facility] Comment: Supplemental ranges: <140 mg/dL before meals <180 mg/dL all other times of the day Blood specimen (specimen) 06/30/2017 2:30 AM EDT 06/30/2017 2:30 AM EDT Chetan Lund MD POINT OF CARE TEST O SHAYAN Performing Organization Address [facility] Co de Phone Number [facility] [place] [address] * (ABNORMAL) POCT Glucose (06/29/2017 11:48 PM EDT) Glucose, POC 386(H) 65 - 199 mg/dL [facility] Comment: Supplemental ranges: <140 mg/dL before meals <180 mg/dL all other times of the day Blood specimen (specimen) 06/29/2017 11:48 PM EDT 06/29/2017 11:48 PM EDT Chetan Lund MD POINT OF CARE TEST O RDERABLES [facility] [place] [address] * POCT Glucose (06/29/2017 8:22 PM EDT) Glucose, POC 187 65 - 199 mg/dL [facility] Comment: Supplemental ranges: <140 mg/dL before meals <180 mg/dL all other times of the day Blood specimen (specimen) 06/29/2017 8:22 PM EDT 06/29/2017 8:22 PM EDT Chetan Lund MD POINT OF CARE TEST O RDERAGONZALO Performing Organization Address City/[facility]/ZIP Co de Phone Number [facility] [place] [address] * POCT Glucose (06/29/2017 6:05 PM EDT) Glucose, POC 159 65 - 199 mg/dL [facility] Comment: Supplemental ranges: <140 mg/dL before meals <180 mg/dL all other times of the day Blood specimen (specimen) 06/29/2017 6:05 PM EDT 06/29/2017 6:05 PM EDT Chetan Lund MD POINT OF CARE TEST O CHARLESERAGONZALO [facility] [place] [address] * POCT Glucose (06/29/2017 1:49 PM EDT) Glucose, POC 103 65 - 199 mg/dL [facility] Comment: Supplemental ranges: <140 mg/dL before meals <180 mg/dL all other times of the day Blood specimen (specimen) 06/29/2017 1:49 PM EDT 06/29/2017 1:49 PM EDT Chetan Lund MD POINT OF CARE TEST O RDERABLES [facility] [address] * POCT HGB (06/29/2017) POC Hemoglobin 13.4 g/dL 06/29/2017 Chetan Lund MD POINT OF CARE TEST O RDERABLES documented in this encounter Visit Diagnoses Diagnosis [...] Intravenous, EVERY 8 HOURS PRN, Starting on Mon06/29/17 at 1956, Until Mon06/30/17 at 1427, Nausea, May repeat times one in 30 minutes if ineffective. If multiple antiemetics are ordered, use ondanstron first, Recovery (Recovery-Hospital Unit) ondansetron (ZOFRAN) tablet 4 mg 4 mg, Oral, EVERY 8 HOURS PRN, Starting on Mon06/29/17 at 1956, Until Mon06/30/17 at 1427, Nausea, [...] Intravenous, 2 TIMES DAILY, First dose on Aav 06/29/17 at 2100, Until Discontinued, Recovery (Recovery-Hospital [...] Routine 1345 (Canceled Entry - Provider: Emilie A [place], RN - Reason: Transfer to a Procedural area)1417 (Given - Provider: Sumit Cook RN) baclofen (LIORESAL) tablet 10 mg 10 mg, [...] BRENDAN) 0426 (Stopped - Provider: Lilian Haley, RN)042 (New Bag - Provider: Lilian Haley, BRENDAN) [...] Emilie Arias RN)1817 (Given - Provider: Emilie Arias, BRENDAN)183 (Given - Provider: Emilie Arias, BRENDAN)185 (Given - Provider: Emilie Arias RN) lidocaine [...] 4 HOURS, First occurrence on Mon06/29/17 at 2000, Until Specified, Consider choosing EVERY 4 HOURS [...] Unit) documented in this encounter Care Teams Banquet Steward Relationship Specialty Start Date End Date Nanda Read MD [facility] Carlos [address] [place] [address] PCP - General 09/14/10 06/06/18 documented as of this encounter
--- OUTSIDE RECORDS SUMMARY | 2024-09-18 16:12 | XMS_ITS | Encounter Summary ---
[place] [address] Care Team Providers Care Die Keeper Name Role Phone Ruth Munoz APRN Primary Care Provider + Encounter Details Date Type Department Care Team (Latest Contact Info) Description 02/05/2019 1:30 PM EDT Laboratory Appointment Lab 3L [place] [address] Type 2 diabetes, controlled, with [...] AM EDT TH Visit (TeleHealth) [place] [address] Wyatt Higgins MD [facility] [place] [address] documented as of this encounter Procedures Procedure [...] Other iron deficiency anemia COMPREHENSIVE METABOLIC PANEL Routine 02/05/2019 10:26 AM EDT Type 2 diabetes, controlled, with neuropathy Vitamin D deficiency Other iron deficiency anemia documented in this encounter Results * U Albumin/Cre Ratio (02/05/2019 10:29 AM EDT) Albumin / Creatinin Ratio, Urine 7 0 - 29 mcg/mg Cr [facility] [...] Supplements (2012) 2, 357? 362 Albumin, Urine 3.6 mg/L [facility] Creatinine, Urine 49 mg/dL [facility] Urine specimen (specimen) 02/05/2019 10:29 AM EDT 02/05/2019 10:36 AM EDT Narrative Resulting Agency Comment Spec In Lab Judith Reinoso MD URINE ORDERABLES [facility] [place] [address] * (ABNORMAL) Differential, Automated (02/05/2019 10:26 AM EDT) Neutrophil % 71.4 % [facility] Neutrophil Absolute 8.20(H) 1.70 - 6.10 x10(3)/mc L [facility] Lymph % 20.3 % [facility] Lymphocytes Abs 2.3 0.9 - 3.2 x10(3)/ L [facility] Monocyte % 6.3 % [facility] Monocyte Abs 0.7 0.3 - 0.9 x10(3)/ L [facility] Eos % 1.1 % [facility] Eosinophils Abs 0.1 0.0 - 0.4 x10(3)/[facility] Basophil % 0.6 % [facility] Baso Absolute 0.1 0.0 - 0.1 x10(3)/[facility] Immature Gran % 0.30 % [facility] Comment: Immature granulocytes(IG's)percentage and absolute count will include metamyelocytes, myelocytes, and promyelocytes. Blood smears from CBCs yielding IG's will be scanned manually for concordance. If this scan disagrees with the automated IG or if promyelocytes are noted, a manual differential will be performed. Immature Gran Absolute 0.03 0.00 - 0.04 x10(3)/ L [facility] Blood specimen (specimen) 02/05/2019 10:26 AM EDT 02/05/2019 10:36 AM EDT Narrative Resulting Agency Comment Spec In Lab Judith Reinoso MD HEMATOLOGY ORDERA BLES Performing Organization Address City/[facility]/[place] [address] * (ABNORMAL) Vitamin B12 (02/05/2019 10:26 AM EDT) Vitamin B12 1,870(H) 232 - 1,245 pg/mL [facility] Blood specimen (specimen) 02/05/2019 10:26 AM EDT 02/05/2019 10:36 AM EDT Narrative Resulting Agency Comment Spec In Lab Judith Reinoso MD CHEMISTRY ORDERAB LES [facility] [place] [address] * Vitamin D, 25-Hydroxy (02/05/2019 10:26 AM EDT) Vitamin D Total 25 OH 44 30 - 100 ng/mL [facility] [...] be considered to be insufficient or deficient. http://EnglishUp/nkf-guidelines http://EnglishUp/nejm-VitD The IDS iSYS Vitamin D Immunoassay detects both 25-OH Vitamin D2 and 25-OH Vitamin D3, but only a total Vitamin D concentration is reported. Blood specimen (specimen) 02/05/2019 10:26 AM EDT 02/05/2019 1:19 PM EDT Narrative Resulting Agency Comment Spec In Lab Judith Reinoso MD CHEMISTRY ORDERAB LES [facility] [place] [address] * Lipid Panel (02/05/2019 10:26 AM EDT) Cholesterol, Total 206 mg/dL [facility] Comment: Lower Risk: <200 mg/dL Average Risk: 200-239 mg/dL Higher Risk: >vx=556 mg/dL Triglyceride 153 mg/dL [facility] Comment: Average Risk/Lower Risk: <150 mg/dL Borderline High Risk: 150-199 mg/dL High Risk: 200-499 mg/dL Very High Risk: >my=948 mg/dL HDL Cholesterol 56 mg/dL [facility] Comment: Males: ?? Higher Risk: <40 mg/dL Females: ?? HIgher Risk: <50 mg/dL LDL Cholesterol 119 mg/dL [facility] Comment: Lowest Risk: <100 mg/dL Lower Risk: 100-129 mg/dL Borderline High Risk: 130-159 mg/dL High Risk: 160-189 mg/dL Very High Risk: >yj=325 mg/dL Cholesterol/HDL Ratio 3.7 ratio [facility] Lipid Interpretation See Note [facility] Comment: Lipid management should be guided by a patient? s ASCVD risk, goals and preferences. ACC/AHA Guidelines recommend high intensity statin if clinical ASCVD or LDL greater than or equal to 190 mg/dL. http://eBureau.com/BRD-YFR-Heampqcxq Adults aged 40-75 with LDL 70-189 mg/dL should have their 10 year ASCVD risk estimated with the ACC/AHA ASCVD risk ground worker http://tools.acc.org/FGXYJ-Lato-Uoucziklp/ Statin should be discussed if risk greater [...] CHEMISTRY ORDERAB LES [facility] [place] [address] * (ABNORMAL) Comprehensive metabolic panel (non-fasting) (02/05/2019 10:26 AM EDT) Glucose 124 65 - 199 mg/dL [facility] Comment:Diabetes: >=200 mg/d L plus symptoms Blood Urea Nitrogen 8 8 - 18 mg/dL [facility] [...] - 107 mmol/L [facility] Carbon Dioxide 26 22 - 31 mmol/L [facility] Anion Gap 14 5 - 15 mmol/L [facility] Calcium 9.5 8.5 - 10.5 mg/dL [facility] Protein, Total 7.8 6.1 - 8.0 gm/dL [facility] Albumin 4.0 3.2 - 5.2 gm/dL [facility] Aspartate Aminotransferase 16 0 - 30 unit/L [facility] Alanine Aminotransferase 17 0 - 30 unit/L [facility] Alkaline Phosphatase 108(H) 40 - 104 unit/L [facility] Bilirubin, Total 0.4 0.2 - 1.3 mg/dL [facility] Est Glomerular Filtration Rate 112 >=60 mL/min/1. 73 m?? [facility] Comment: The eGFR was calculated using the CKD-EPI equation. As with all creatinine based estimates of kidney function, eGFR values calculated with the CKD-EPI equation are not accurate in patients with acute kidney failure, extremes of body mass or the acutely ill. http://EnglishUp/[facility]OVEnkf eGFR 130 >=60 mL/min/1. 73 m?? [facility] Comment: The eGFR was calculated using the CKD-EPI equation. As with all creatinine based estimates of kidney function, eGFR values calculated with the CKD-EPI equation are not accurate in patients with acute kidney failure, extremes of body mass or the acutely ill. http://EnglishUp/DHnkf Blood specimen (specimen) 02/05/2019 10:26 AM EDT 02/05/2019 10:36 AM EDT Narrative Resulting Agency Comment Spec In Lab Judith Reinoso MD CHEMISTRY ORDERAB LES Performing Organization Address [facility]/ZIP Co de Phone Number [facility] [place] [address] * TSH (02/05/2019 10:26 AM EDT) Pathologist [facility] Thyroid Stimulating Hormone 1.36 0.27 - 4.20 mcIU/mL [facility] Blood specimen (specimen) 02/05/2019 10:26 AM EDT 02/05/2019 10:36 AM EDT Narrative Resulting Agency Comment Spec In Lab Judith Reinoso MD CHEMISTRY ORDERAB LES Performing Organization Address [facility] Co de Phone Number [facility] [place] [address] * (ABNORMAL) Hemoglobin A1c (02/05/2019 10:26 AM EDT) [facility] Hemoglobin A1c 7.4(H) 4.3 - 5.6 % [facility] [...] 36: Suppl. 1, S67-74 Estimated Average Glucose 166 mg/dL [facility] Comment: eAG equivalents for HbA1c [...] into estimated average glucose values. ??Diabetes Care 2008:31(8):9965-2883. Blood specimen (specimen) 02/05/2019 10:26 AM EDT 02/05/2019 10:36 AM EDT Narrative Resulting Agency Comment Spec In Lab Judith Reinoso MD CHEMISTRY ORDERAB LES Performing Organization Address [facility] de Phone Number [facility] [place] [address] * Ferritin (02/05/2019 10:26 AM EDT) [facility] Ferritin 46 30 - 400 ng/mL [facility] Comment: Pediatric reference ranges not verified at [facility], interpret with caution. Reference ranges for females greater than 50 years of age approach values for men, i.e., 30-400 ng/mL. Blood specimen (specimen) 02/05/2019 10:26 AM EDT 02/05/2019 10:36 AM EDT Narrative Resulting Agency Comment Spec In Lab Cathy Dillon APRN CHEMISTRY ORDERAB LES Performing Organization Address [facility] Co de Phone Number [facility] [place] [address] * (ABNORMAL) Hemogram (02/05/2019 10:26 AM EDT) [facility] White Blood Cell 11.5(H) 4.0 - 9.5 x10(3)/[facility] Red Blood Cell 5.17 4.00 - 5.21 x10(6)/ L [facility] Hemoglobin 14.0 11.7 - 15.5 gm/dL [facility] Hematocrit 44.5 35.7 - 45.8 % [facility] Mean Cell Volume 86.1 82.6 - 94.4 fL [facility] Mean Cell Hemoglobin 27.1 27.1 - 32.0 pg [facility] Mean Cell Hemoglobin Concentration 31.5(L) 31.7 - 35.0 gm/dL [facility] Platelet 251 145 - 357 x10(3)/[facility] RDW Standard Deviation 40.6 37.0 - 46.0 [facility] RDW coefficient of variation 13.0 11.5 - 14.1 % [facility] Mean Platelet Volume 10.5 7.6 - 12.9 [facility] NRBC% auto 0.0 % [facility] NRBC Absolute 0.000 0.000 - 0.000 x10(3)/[facility] Blood specimen (specimen) 02/05/2019 10:26 AM EDT 02/05/2019 10:36 AM EDT Narrative Resulting Agency Comment Spec In Lab Cathy Dillon APRN HEMATOLOGY ORDERA BLES [facility] [place] [address] * (ABNORMAL) Iron and TIBC (02/05/2019 10:26 [...] CHEMISTRY ORDERAB LES [facility] [place] [address] documented in this encounter Visit Diagnoses Diagnosis [...] unspecified documented in this encounter Care Teams Die Keeper Relationship Specialty Start Date End Date Ruth Munoz, TUBE WORKER [address] [place] [address] PCP - General Family Medicine 02/05/19 documented as of this encounter
--- OUTSIDE RECORDS SUMMARY | 2024-09-18 16:12 | XMS_ITS | Encounter Summary ---
Author Organization [facility] [place] [address] Care Team Providers Care Horse Identifier Name Role Phone MunozRuth jerome Lilibeth JUAREZ Primary Care Provider + Reason for Visit * Reason Comments Medication Refill Encounter Details Date Type Department Care Team (Late st Contact Info) Description 05/04/2018 Refill [place] [address] Cathy Dillon APRN [facility] [place] [address] Status post bariatric surgery; Intestinal malabsorption, unspecified [...] AM EDT TH Visit (TeleHealth) [place] [address] Wyatt Higgins MD [facility] [place] [address] documented as of this encounter Visit Diagnoses Diagnosis Status post bariatric surgery Bariatric surgery status Intestinal malabsorption, unspecified type documented in this encounter Care Teams Horse Identifier Relationship Specialty Start Date End Date Ruth Munoz, CENTRAL CONTROL ROOM OPERATOR [address] [place] [address] PCP - General Family Medicine 02/05/19 documented as of this encounter
--- OUTSIDE RECORDS SUMMARY | 2024-09-18 16:12 | XMS_ITS | Encounter Summary ---
Author Organization [facility] [place] [address] Care Team Providers Care Services Engineer Name Role Phone Nanda Read MD Primary Care Provider [phone] Reason for Visit * Reason Onset Date Comments Medication Refill 08/11/2017 Encounter Details Date Type Department Care Team (Late st Contact Info) Description 08/11/2017 [place] [address] Judith Reinoso MD [facility] [place] [address] Social History Tobacco Use Types Packs/Day Years [...] AM EDT TH Visit (TeleHealth[place] [address] Wyatt Higgins MD [facility] [place] [place] [address] documented as of this encounter Visit Diagnoses Not on filedocumented in this encounter Care Teams Services Engineer Relationship Specialty Start Date End Date Nanda Read MD [facility] [address] [place] [address] PCP - General 09/14/10 06/06/18 documented as of this encounter
--- OUTSIDE RECORDS SUMMARY | 2024-09-18 16:12 | XMS_ITS | Encounter Summary ---
Author Organization [facility] [place] [address] Care Team Providers Care Founder President And Ceo Name Role Phone Patrick Clement MD Primary Care Provider [phone] Encounter Details Date Type Department Care Team (Late st Contact Info) Description 07/31/2018 Orders [place] [address] Cathy Dillon, MANAGER [employer] [facility] [place] [address] Status post bariatric surgery; Intestinal malabsorption, unspecified [...] AM EDT TH Visit (TeleHealth) [place] [address] Wyatt Higgins MD [facility] DR NEUROLOGY [facility] [place] [address] documented as of this encounter Visit Diagnoses Diagnosis Status post bariatric surgery Bariatric surgery status Intestinal malabsorption, unspecified type documented in this encounter Care Teams Founder President And Ceo Relationship Specialty Start Date End Date Patrick Clement MD PCP - General Family Medicine 06/07/18 02/04/19 documented as of this encounter
--- OUTSIDE RECORDS SUMMARY | 2024-09-18 16:12 | XMS_ITS | Encounter Summary ---
[place] [address] Care Team Providers Care Readers' Advisory Service Librarian Name Role Phone Nanda Read MD Primary Care Provider [phone] Encounter Details Date Type Department Care Team (Late st Contact Info) Description 02/15/2018 Telephone [place] [address] Tracy Tavarez LPN Social History Tobacco Use [...] AM EDT TH Visit (TeleHealth) [place] [address] Wyatt Higgins MD [facility] [place] [address] documented as of this encounter Visit Diagnoses Not on filedocumented in this encounter Care Teams Readers' Advisory Service Librarian Relationship Specialty Start Date End Date Nanda Read MD [facility] [address] [place] [address] PCP - General 09/14/10 06/06/18 documented as of this encounter
--- OUTSIDE RECORDS SUMMARY | 2024-09-18 16:12 | XMS_ITS | Encounter Summary ---
Author Organization [facility] [place] [address] Care Team Providers Care Planner Internship Name Role Phone Patrick Clement MD Primary Care Provider [phone] Reason for Visit * Reason Comments Follow-up Skin Check Encounter Details Date Type Department Care Team (Late st Contact Info) Description 08/14/2018 4:30 PM EDT Office Visit Dermatology at [address] [place] [address] Galdino Gilliland MD [address], [place] [address] Psoriasis Social History Tobacco Use Types Packs/Day [...] during the winter months. The drive from [facility] scares her particular with her limited mobility. [...] AM EDT TH Visit (TeleHealth) [place] [address] Wyatt Higgins MD [facility] [place] [address] documented as of this encounter Visit Diagnoses Diagnosis Psoriasis Other psoriasis documented in this encounter Care Teams Planner Internship Relationship Specialty Start Date End Date Patrick Clement MD PCP - General Family Medicine 06/07/18 02/04/19 documented as of this encounter
--- OUTSIDE RECORDS SUMMARY | 2024-09-18 16:12 | XMS_ITS | Encounter Summary ---
[place] [address] Care Team Providers Care High Pressure Boiler Operator Name Role Phone Nanda Read MD Primary Care Provider [phone] Encounter Details Date Type Department Care Team (Latest Contact Info) Description 08/10/2017 9:30 AM EDT Laboratory Appointment Lab [address] [place] [address] Disorder of iron metabolism; Status [...] AM EDT TH Visit (TeleHealth) [place] [address] Wyatt Higgins MD [facility] [place] [address] documented as of this encounter [...] EDT) Iron 56 30 - 150 mcg/dL [facility] TIBC 311 250 - 450 mcg/dL [facility] Iron Saturation 18(L) 20 - 50 % [facility] Blood specimen (specimen) 08/10/2017 9:30 AM EDT 08/10/2017 9:37 AM EDT Narrative Resulting Agency Comment Spec In Lab Judith Reinoso MD CHEMISTRY ORDERAB LES [facility] [place] [address] * (ABNORMAL) Hemoglobin A1c (08/10/2017 9:30 AM EDT) Hemoglobin A1c 6.8(H) 4.3 - 5.6 % [facility] [...] Mellitus, Diabetes Care 2013; 36: Suppl. 1, S67-77 Estimated Average Glucose 148 mg/dL [facility] Comment: [...] into estimated average glucose values. ??Diabetes Care 2008:31(8):1827-6513. Blood specimen (specimen) 08/10/2017 9:30 AM EDT 08/10/2017 9:37 AM EDT Narrative Resulting Agency Comment Spec In Lab Judith Reinoso MD CHEMISTRY ORDERAB LES Performing Organization Address [facility] Co de Phone Number [facility] [place] [address] * Vitamin D, 25-Hydroxy (08/10/2017 9:30 AM EDT) Pathologist [facility] Vitamin D Total 25 OH 70 30 - 100 ng/mL [facility] Comment: Deficient <10 ng/mL Insufficient 10 to 29 ng/mL Sufficient 30 to 100 ng/mL Potential Intoxication >100 ng/mL According to the [place] National Osteoporosis Foundation, Vitamin D concentrations >30 ng/mL are sufficient to protect bone health. ??The National Kidney Foundation has similarly stated that patients with Vitamin D concentrations <30ng/mL should be considered to be insufficient or deficient. http://[employer]/nkf-guidelines http://[employer]/nejm-VitD The IDS iSYS Vitamin D Immunoassay detects both 25-OH Vitamin D2 and 25-OH Vitamin D3, but only a total Vitamin D concentration is reported. Blood specimen (specimen) 08/10/2017 9:30 AM EDT 08/10/2017 11:40 AM EDT Narrative Resulting Agency Comment Spec In Lab Judith Reinoso MD CHEMISTRY ORDERAB LES Performing Organization Address [facility] Co de Phone Number [facility] [place] [address] * (ABNORMAL) Ferritin (08/10/2017 9:30 AM EDT) Pathologist [facility] Ferritin 25(L) 30 - 400 ng/mL [facility] Comment: Pediatric reference ranges not verified at [facility], interpret with caution. Reference ranges for females greater than 50 years of age approach values for men, i.e., 30-400 ng/mL. Blood specimen (specimen) 08/10/2017 9:30 AM EDT 08/10/2017 9:37 AM EDT Narrative Resulting Agency Comment Spec In Lab Cathy Dillon APRN CHEMISTRY ORDERAB LES [facility] [place] [address] * (ABNORMAL) Hemogram (08/10/2017 9:30 AM EDT) White Blood Cell 9.8(H) 4.0 - 9.5 x10(3)/mc L [facility] Red Blood Cell 4.64 4.00 - 5.21 x10(6)/mc L [facility] Hemoglobin 12.9 11.7 - 15.5 gm/dL [facility] Hematocrit 39.2 35.7 - 45.8 % [facility] Mean Cell Volume 84.5 82.6 - 94.4 fL [facility] Mean Cell Hemoglobin 27.8 27.1 - 32.0 pg [facility] Mean Cell Hemoglobin Concentration 32.9 31.7 - 35.0 gm/dL [facility] Platelet 256 145 - 357 x10(3)/mc L [facility] RDW Standard Deviation 39.9 37.0 - 46.0 [facility] RDW coefficient of variation 13.0 11.5 - 14.1 % [facility] Mean Platelet Volume 11.3 7.6 - 12.9 fL [facility] NRBC% auto 0.0 % [facility] NRBC Absolute 0.000 0.000 - 0.000 x10(3)/ L [facility] Blood specimen (specimen) 08/10/2017 9:30 AM EDT 08/10/2017 9:37 AM EDT Narrative Resulting Agency Comment Spec In Lab Cathy Dillon APRN HEMATOLOGY ORDERA BLES [facility] [place] [address] documented in this encounter Visit Diagnoses Diagnosis [...] (chronic) documented in this encounter Care Teams High Pressure Boiler Operator Relationship Specialty Start Date End Date Nanda Read MD [facility] D [address] [place] [address] PCP - General 09/14/10 06/06/18 documented as of this encounter
--- OUTSIDE RECORDS SUMMARY | 2024-09-18 16:12 | XMS_ITS | Encounter Summary ---
Author Organization [facility] [place] [address] Care Team Providers Care Vascular Neurologist Name Role Phone Nanda Read MD Primary Care Provider [phone] Reason for Visit * Reason Comments Diabetes Encounter Details Date Type Department Care Team (Late st Contact Info) Description 02/12/2018 10:00 AM EDT Office [place] [address] Judith Reinoso MD [facility] [place] [address] Type 2 diabetes, controlled, with neuropathy; Vitamin [...] bariatric team. Her B12 was trending down lbpp500m to 300s and we already gave her [...] 50,000 iu 1x/week and cont 2 of [place] MVI which contains iron (she could not [...] 02/12/2018 10:00 AM EDT Endocrine Clinic Name: Martha Benoit : 1965 Date: 02/12/2018 PCP: Nanda [...] and not be taken away as her [id number] has drug addict issue. Her son needs to pay for high director on air fee but is willing to have his [...] the result today). She has been taking [place] multivitamin to 2 tab daily with normal [...] 50,000 iu 1x/week and cont 2 of [place] MVI which contains iron (she could not [...] AM EDT TH Visit (TeleHealth) [place] [address] Wyatt Higgins MD [facility] [place] [address] documented as of this encounter Results * U Albumin/Cre Ratio (02/05/2019 10:29 AM EDT) Albumin / Creatinin Ratio, Urine 7 0 - 29 mcg/mg Cr [facility] Comment: Reference Ranges: <30 [...] 2, 357? 362 Albumin, Urine 3.6 mg/L [facility] Creatinine, Urine 49 mg/dL [facility] Urine specimen (specimen) 02/05/2019 10:29 AM EDT 02/05/2019 10:36 AM EDT Narrative Resulting Agency Comment Spec In Lab Judith Reinoso MD URINE ORDERABLES [facility] [place] [address] * (ABNORMAL) Iron and TIBC (02/05/2019 10:26 AM EDT) Iron 30 30 - 150 mcg/dL [facility] TIBC 313 250 - 450 mcg/dL [facility] Iron Saturation 10(L) 20 - 50 % [facility] Blood specimen (specimen) 02/05/2019 10:26 AM EDT 02/05/2019 10:36 AM EDT Narrative Resulting Agency Comment Spec In Lab Judith Reinoso MD CHEMISTRY ORDERAB LES Performing Organization Address City/[facility]/ZIP Co de Phone Number [facility] [place] [address] * (ABNORMAL) Vitamin B12 (02/05/2019 10:26 AM EDT) Vitamin B12 1,870(H) 232 - 1,245 pg/mL [facility] Blood specimen (specimen) 02/05/2019 10:26 AM EDT 02/05/2019 10:36 AM EDT Narrative Resulting Agency Comment Spec In Lab Judith Reinoso MD CHEMISTRY ORDERAB LES Performing Organization Address City/[facility]/ZIP Co de Phone Number [facility] [place] [address] * Vitamin D, 25-Hydroxy (02/05/2019 10:26 AM EDT) Vitamin D Total 25 OH 44 30 - 100 ng/mL [facility] Comment: Deficient <10 ng/mL Insufficient 10 to 29 ng/mL Sufficient 30 to 100 ng/mL Potential Intoxication >100 ng/mL According to the [place] National Osteoporosis Foundation, Vitamin D concentrations >30 ng/mL are sufficient to protect bone health. ??The National Kidney Foundation has similarly stated that patients with Vitamin D concentrations <30ng/mL should be considered to be insufficient or deficient. http://[employer]/nkf-guidelines http://[employer]/nejm-VitD The IDS iSYS Vitamin D Immunoassay detects both 25-OH Vitamin D2 and 25-OH Vitamin D3, but only a total Vitamin D concentration is reported. Blood specimen (specimen) 02/05/2019 10:26 AM EDT 02/05/2019 1:19 PM EDT Narrative Resulting Agency Comment Spec In Lab Judith Reinoso MD CHEMISTRY ORDERAB LES [facility] [place] [address] * Lipid Panel (02/05/2019 10:26 AM EDT) Cholesterol, Total 206 mg/dL [facility] Comment: Lower Risk: <200 mg/dL Average Risk: 200-239 mg/dL Higher Risk: >vn=455 mg/dL Triglyceride 153 mg/dL [facility] Comment: Average Risk/Lower Risk: <150 mg/dL Borderline High Risk: 150-199 mg/dL High Risk: 200-499 mg/dL Very High Risk: >ty=619 mg/dL HDL Cholesterol 56 mg/dL [facility] Comment: Males: ?? Higher Risk: <40 mg/dL Females: ?? HIgher Risk: <50 mg/dL LDL Cholesterol 119 mg/dL [facility] Comment: Lowest Risk: <100 mg/dL Lower Risk: 100-129 mg/dL Borderline High Risk: 130-159 mg/dL High Risk: 160-189 mg/dL Very High Risk: >ry=030 mg/dL Cholesterol/HDL Ratio 3.7 ratio [facility] Lipid Interpretation See Note [facility] Comment: Lipid management should be guided by a patient? s ASCVD risk, goals and preferences. ACC/AHA Guidelines recommend high intensity statin if clinical ASCVD or LDL greater than or equal to 190 mg/dL. http://[employer].com/DAS-AKS-Hbppnltxu Adults aged 40-75 with LDL 70-189 mg/dL should have their 10 year ASCVD risk estimated with the ACC/AHA ASCVD risk estimator and drafter http://tools.acc.org/KIWGO-Rqyu-Uvtcyhgas/ Statin should be discussed if risk greater [...] Lab Judith Reinoso MD CHEMISTRY ORDERAB LES [facility] [place] [address] * (ABNORMAL) Comprehensive metabolic panel (non-fasting) (02/05/2019 10:26 AM EDT) Glucose 124 65 - 199 mg/dL [facility] Comment:Diabetes: >=200 mg/d L plus symptoms Blood Urea Nitrogen 8 8 - 18 mg/dL [facility] Creatinine 0.46(L) 0.70 - 1.20 mg/dL [facility] Sodium 145 135 - 145 mmol/L [facility] Potassium 4.0 3.5 - 5.0 mmol/L [facility] Comment: Please note: ??Patients with WBC >100,000 may have falsely elevated Potassium levels. ??For accurate Potassium quantification in these patients send serum separator tube (gold top) for subsequent determinations. ??Contact the Clinical Chemistry Laboratory if there are any questions. Chloride 105 98 - 107 mmol/L [facility] Carbon Dioxide 26 22 - 31 mmol/L [facility] Anion Gap 14 5 - 15 mmol/L [facility] Calcium 9.5 8.5 - 10.5 mg/dL [facility] Protein, Total 7.8 6.1 - 8.0 gm/dL [facility] Albumin 4.0 3.2 - 5.2 gm/dL [facility] Aspartate Aminotransferase 16 0 - 30 unit/L [facility] Alanine Aminotransferase 17 0 - 30 unit/L [facility] Alkaline Phosphatase 108(H) 40 - 104 unit/L [facility] Bilirubin, Total 0.4 0.2 - 1.3 mg/dL [facility] Est Glomerular Filtration Rate 112 >=60 mL/min/1. 73 m?? [facility] Comment: The eGFR was calculated using the CKD-EPI equation. As with all creatinine based estimates of kidney function, eGFR values calculated with the CKD-EPI equation are not accurate in patients with acute kidney failure, extremes of body mass or the acutely ill. http://[employer]Do/[facility] GUYMONnkf eGFR 130 >=60 mL/min/1. 73 m?? [facility] Comment: The eGFR was calculated using the CKD-EPI equation. As with all creatinine based estimates of kidney function, eGFR values calculated with the CKD-EPI equation are not accurate in patients with acute kidney failure, extremes of body mass or the acutely ill. http://YouDo/DHMCnkf Blood specimen (specimen) 02/05/2019 10:26 AM EDT 02/05/2019 10:36 AM EDT Narrative Resulting Agency Comment Spec In Lab Judith Reinoso MD CHEMISTRY ORDERAB LES [facility] [place] [address] * TSH (02/05/2019 10:26 AM EDT) Thyroid Stimulating Hormone 1.36 0.27 - 4.20 mcIU/mL [facility] Blood specimen (specimen) 02/05/2019 10:26 AM EDT 02/05/2019 10:36 AM EDT Narrative Resulting Agency Comment Spec In Lab Judith Reinoso MD CHEMISTRY ORDERAB LES [facility] [place] [address] * (ABNORMAL) Hemoglobin A1c (02/05/2019 10:26 AM EDT) Pathologist [facility] Hemoglobin A1c 7.4(H) 4.3 - 5.6 % [facility] Comment: Reference Range: [...] Mellitus, Diabetes Care 2013; 36: Suppl. 1, S67-09 Estimated Average Glucose 166 mg/dL [facility] Comment: [...] into estimated average glucose values. ??Diabetes Care 2008:31(8):9617-6873. Blood specimen (specimen) 02/05/2019 10:26 AM EDT 02/05/2019 10:36 AM EDT Narrative Resulting Agency Comment Spec In Lab Judith Reinoso MD CHEMISTRY ORDERAB LES [facility] [place] [address] documented in this encounter Visit Diagnoses Diagnosis Type 2 diabetes, controlled, with neuropathy Type II or unspecified type diabetes mellitus with neurological manifestations, not stated as uncontrolled Vitamin D deficiency Unspecified vitamin D deficiency Other iron deficiency anemia documented in this encounter Care Teams Vascular Neurologist Relationship Specialty Start Date End Date Nanda Read MD [facility] [[email or web address]] [address] [place] [address] PCP - General 09/14/10 06/06/18 documented as of this encounter
--- OUTSIDE RECORDS SUMMARY | 2024-09-18 16:12 | XMS_ITS | Encounter Summary ---
[place] [address] Care Team Providers Care Dialysis Tech Name Role Phone Nanda Read MD Primary Care Provider [phone] Reason for Visit * Reason Comments Follow Up Surgery 06/29/17 Panni incisio n check Encounter Details Date Type Department Care Team (Latest Contact Info) Description 08/01/2017 2:30 PM EDT Clinical Support [place] [address] Surgery follow-up Social History Tobacco Use Types [...] symptoms please call our nurse's line at [phone] M - F 8 - 5 May [...] TH Visit (TeleHealth) [place] [address] Wyatt Higgins MD [facility] [place] [address] documented as of this encounter Visit Diagnoses Diagnosis Surgery follow-up Follow-up examination, following unspecified surgery documented in this encounter Care Teams Dialysis Tech Relationship Specialty Start Date End Date Nanda Read MD [facility] [address] [place] [address] PCP - General 09/14/10 06/06/18 documented as of this encounter
--- OUTSIDE RECORDS SUMMARY | 2024-09-18 16:12 | XMS_ITS | Encounter Summary ---
[place] [address] Care Team Providers Care Mimeographer Name Role Phone Nanda Read MD Primary Care Provider [phone] Encounter Details Date Type Department Care Team (Late st Contact Info) Description 09/26/2017 9:30 AM EST Office [place] [address] Julio Cesar Wright MD [facility] [place] [address] Yancy Pennington DO [facility] [place] [address] Polyneuropathy Social History Tobacco Use Types Packs/Day [...] this encounter Progress Notes * Yancy Pennington, - 09/26/2017 9:30 AM EST Neurology Clinic [...] Dr. Kyle Pennington DO Clinical Neurophysiology Fellow #[id number] * Julio Cesar Wright MD - 09/26/2017 [...] AM EDT TH Visit (TeleHealth) [place] [address] Wyatt Higgins MD [facility] [place] [address] documented as of this encounter Visit Diagnoses Diagnosis Polyneuropathy Unspecified hereditary and idiopathic peripheral neuropathy documented in this encounter Care Teams Mimeographer Relationship Specialty Start Date End Date Nanda Read MD KIRILL Carlos [address] [place] [address] PCP - General 09/14/10 06/06/18 documented as of this encounter
--- OUTSIDE RECORDS SUMMARY | 2024-09-18 16:12 | XMS_ITS | Encounter Summary ---
Author Organization [facility] [place] [address] Care Team Providers Care Gear Setter Name Role Phone Patrick Clement MD Primary Care Provider [phone] Reason for Visit * Reason Onset Date Comments Other 12/10/2018 Encounter Details Date Type Department Care Team (Late st Contact Info) Description 12/10/2018 Telephone [place] [address] Cathy Dillon, [facility] [place] [address] Other Social History Tobacco Use Types Packs/Day [...] AM EDT TH Visit (TeleHealth) [place] [address] Wyatt Higgins MD [facility] [place] [address] documented as of this encounter Visit Diagnoses Not on filedocumented in this encounter Care Teams Gear Setter Relationship Specialty Start Date End Date Patrick Clement MD PCP - General Family Medicine 06/07/18 02/04/19 documented as of this encounter
--- OUTSIDE RECORDS SUMMARY | 2024-09-18 16:12 | XMS_ITS | Encounter Summary ---
Author Organization [facility] [place] [address] Care Team Providers Care Clinical Trial Data Manager Name Role Phone Nanda Read MD Primary Care Provider Reason for Visit * Reason Comments Medication Refill Encounter Details Date Type Department Care Team (Late st Contact Info) Description 11/20/2017 [place] [address] Judith Reinoso MD [facility] [place] [place] [address] Social History Tobacco Use Types Packs/Day Years [...] AM EDT TH Visit (TeleHealth) [place] [phone] Wyatt Higgins MD [facility] [place] [address] documented as of this encounter Visit Diagnoses Not on filedocumented in this encounter Care Teams Clinical Trial Data Manager Relationship Specialty Start Date End Date Nanda Read MD [facility] [address] [place] [address] PCP - General 09/14/10 06/06/18 documented as of this encounter
--- OUTSIDE RECORDS SUMMARY | 2024-09-18 16:12 | XMS_ITS | Encounter Summary ---
[place] [address] Care Team Providers Care Networking Administrator Name Role Phone Nanda Read MD Primary Care Provider [phone] Reason for Visit * Reason Onset Date Comments Prior Authorization 01/19/2018 Encounter Details Date Type Department Care Team (Late st Contact Info) Description 01/19/2018 Telephone [place] [phone] Abby Stevens telecom coordinator Social History Tobacco Use Types Packs/Day Years [...] with weight loss and BG Health plan: [place] Medicaid Authorizing sales representative rural power name: Abby Faxed to health plan on: 01/19/18 Health plan decision: Approved Quantity approved: 90.0 90 Authorization number: [id number] Start date: 01/19/18 End date: 01/19/19 documented in this encounter Plan of Treatment Upcoming Encounters Date Type Department Care Team (Late st Contact Info) Description 02/19/2025 9:00 AM EDT TH Visit (TeleHealth) [place] [address] Wyatt Higgins MD [facility] [place] [address] documented as of this encounter Visit Diagnoses Not on filedocumented in this encounter Care Teams Networking Administrator Relationship Specialty Start Date End Date Nanda Read MD [facility] Carlos [address] [place] [address] PCP - General 09/14/10 06/06/18 documented as of this encounter
--- OUTSIDE RECORDS SUMMARY | 2024-09-18 16:12 | XMS_ITS | Encounter Summary ---
Author Organization [facility] [place] [address] Care Team Providers Care Logistics Team Leader Name Role Phone Nanda Read MD Primary Care Provider Reason for Visit * Reason Onset Date Comments Medication Refill 08/22/2017 Encounter Details Date Type Department Care Team (Late st Contact Info) Description 08/22/2017 [place] [address] Judith Reinoso MD [facility] [place] [address] Social History Tobacco Use Types Packs/Day Years [...] AM EDT TH Visit (TeleHealth) [place] [address] Wyatt Higgins MD [facility] [place] [address] documented as of this encounter Visit Diagnoses Not on filedocumented in this encounter Care Teams Logistics Team Leader Relationship Specialty Start Date End Date Nanda Read MD [facility] [address] [place] [address] PCP - General 09/14/10 06/06/18 documented as of this encounter
--- OUTSIDE RECORDS SUMMARY | 2024-09-18 16:12 | XMS_ITS | Encounter Summary ---
Author Organization [facility] [place] [address] Care Team Providers Care Vmware Systems Administrator Name Role Phone Patrick Clement MD Primary Care Provider [phone] Encounter Details Date Type Department Care Team (Late st Contact Info) Description 12/10/2018 Orders Only [place] [phone] Cathy Dillon APRN [facility] [place] [place] [address] Social History Tobacco Use Types Packs/Day Years [...] AM EDT TH Visit (TeleHealth) [place] [phone] Wyatt Higgins MD [facility] [place] [address] documented as of this encounter Visit Diagnoses Not on filedocumented in this encounter Care Teams Vmware Systems Administrator Relationship Specialty Start Date End Date Patrick Clement MD PCP - General Family Medicine 06/07/18 02/04/19 documented as of this encounter
--- OUTSIDE RECORDS SUMMARY | 2024-09-18 16:12 | XMS_ITS | Encounter Summary ---
Author Organization [facility] [place] [address] Care Team Providers Care Senior Energy Market Coordinator Name Role Phone Nanda Read MD Primary Care Provider Reason for Visit * Reason Comments Follow-up S/P RNY gastric bypa ss Encounter Details Date Type Department Care Team (Late Contact Info) Description 02/12/2018 10:30 AM EDT Office Visit [place] [address] Cathy Dillon, GLOBAL EXPANSION SALES DIRECTOR [facility] [place] [address] Disorder of iron metabolism; [...] Taylor Vance - 02/12/2018 10:30 AM EDT [facility] Admin coordinator Rosey: [phone] Dietitian: [phone] Surgeons/ nurse practitioner: [phone] Nurse line: [phone] Testing: in one year Next visit: 1 [address] same day as Dr. Reinoso Routine visits are done at 4.8,12, 18 and 24 months after surgery, and yearly thereafter. Please call [phone] if you do not receive an appointment [...] month from 1-2 PM at [facility]- no registration required Nutrition and Activity apps- Baritastic, My Fitness Pal, Lose It, My Plate Internet resources: www.Lumidigm wwwGC Holdings wwwVirtualLogix www.AndrewBurnett.com Ltd/blog [facility] facebook page: [email or web address].facebook.[email or web address] CUSHINGBariatricSurgery Books & Magazines: - Recipes for Life After Weight Loss Surgery by Ashli Wiseman - Shrink Yourself by Dr Stephen Dial - Eating Well - www.AutoRadio - Cooking Light- www.cookingSemaConnect.Skytree Digital documented in this encounter Progress Notes * [...] Supplement Type Brand/Form Dosage/Amount Frequency Comments Multivitamin Clarkson's chewable 1 Twice daily Calcium none Vitamin [...] chicken breast and peas PM Snack Dinner Alvin chowder Or chop suey with 1 tbsp [...] summary: Early Prolonged hospital stay. Admitted to [facility] on 01/24/16 with nausea and vomiting, failure to progress diet. Transfer to [facility] on 01/25/16 Late none Visits summary: Compliance [...] - Complications: retinopathy, peripheral autonomic neuropathy, sees sterile tech for calluses, declines flu shot ??? [...] RICHARDS at [facility] ENDOSCOPY Allergies Allergen Reactions ??? Codeine [...] blood in stool [] chronic diarrhea/ constipation MANAGER TECHNICAL TRAINING: [] LMP: [] control [] menorrhagia [+] [...] cm Height in inches 5' 3 Weight (Estonian) 175 lbs 3 oz Weight (Metric) 79.5 [...] If labwork is done by the primary hospice care sales consultant: pleasesend a copy to the Bariatric Surgery Program, General Surgery Clinic, [facility], Questions regarding [facility] Bariatric Surgery Program patients: please call the Bariatric Surgery Program at [phone] documented in this encounter Plan of Treatment Upcoming Encounters Date Type Department Care Team (Late st Contact Info) Description 02/19/2025 9:00 AM EDT TH Visit (TeleHealth) [place] [phone] Wyatt Higgins MD [facility] [place] [address] documented as of this encounter Results * Folate, serum (02/12/2018 8:33 AM EDT) Folate >20.0 4.8 - 24.2 ng/mL [facility] Blood specimen (specimen) 02/12/2018 8:33 AM EDT 02/12/2018 8:39 AM EDT Narrative Resulting Agency Comment Spec In Lab Cathy Dillon GLOBAL EXPANSION SALES DIRECTOR CHEMISTRY ORDERAB LES [facility] [place] [address] * (ABNORMAL) Vitamin B1, whole blood (02/12/2018 8:33 AM EDT) Vit B1 Lvl Wb (FEBRUARY) 207(H) 70 - 180 nmol/L [facility] Comment: ADDITIONAL INFORMATION This test was developed and its performance characteristics determined by [facility] in a manner consistent with CLIA requirements. This test has not been cleared or approved by the U.S. Food and Drug Administration. Test Performed by: [facility] - [facility] [address] [place] [address] Blood specimen (specimen) 02/12/2018 8:33 AM EDT 02/12/2018 9:06 AM EDT Narrative Resulting Agency Comment Spec In Lab Cathy Dillon APRN LAB SEND OUT ORDE ALLA Performing Organization Address [facility] Co de Phone Number [facility] [place] [address] * (ABNORMAL) Ferritin (02/12/2018 8:33 AM EDT) [facility] Signature Ferritin 25(L) 30 - 400 ng/mL [facility] [...] APRN CHEMISTRY ORDERAB LES Performing Organization Address [facility] Co de Phone Number [facility] [place] [address] documented in this encounter Visit Diagnoses Diagnosis 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
--- OUTSIDE RECORDS SUMMARY | 2024-09-18 16:12 | XMS_ITS | Encounter Summary ---
[place] [address] Care Team Providers Care Desulphurizer Operator Name Role Phone Patrick Clement MD Primary Care Provider [phone] Reason for Visit * Reason Comments Patient Education Encounter Details Date Type Department Care Team (Late st Contact Info) Description 08/23/2018 Specialty [place] [address] Filemon Sheth RPH Social History Tobacco Use [...] AM EDT TH Visit (TeleHealth) [place] [address] Wyatt Higgins MD [facility] [place] [address] documented as of this encounter Visit Diagnoses Not on filedocumented in this encounter Care Teams Desulphurizer Operator Relationship Specialty Start Date End Date Patrick Clement MD PCP - General Family Medicine 06/07/18 02/04/19 documented as of this encounter
--- OUTSIDE RECORDS SUMMARY | 2024-09-18 16:12 | XMS_ITS | Encounter Summary ---
Author Organization [facility] [place] [address] Care Team Providers Care Acid Correction Hand Name Role Phone Nanda Read MD Primary Care Provider [phone] Reason for Visit * Reason Comments Follow Up Surgery s/p panni 06/29/17 Encounter Details Date Type Department Care Team (Late st Contact Info) Description 07/11/2017 11:20 AM EDT Office [place] [address] Christine Whitley APRN [facility] [place] [address] Surgery follow-up Social History Tobacco Use Types [...] AM EDT TH Visit (Tele[place]) [place] [address] Wyatt Higgins MD [facility] [place] [address] documented as of this encounter Visit Diagnoses Diagnosis Surgery follow-up Follow-up examination, following unspecified surgery documented in this encounter Care Teams Acid Correction Hand Relationship Specialty Start Date End Date Nanda Read MD [facility] [address] [place] [address] PCP - General 09/14/10 06/06/18 documented as of this encounter
--- OUTSIDE RECORDS SUMMARY | 2024-09-18 16:12 | XMS_ITS | Encounter Summary ---
[place] [address] Care Team Providers Care Suture Polisher Name Role Phone Nanda Read MD Primary Care Provider Encounter Details Date Type Department Care Team (Latest Contact Info) Description 02/12/2018 9:00 AM EDT Laboratory Appointment Lab [address] [address] Type 2 diabetes, controlled, with [...] EDT TH Visit (TeleHealth) [place] [address] Wyatt Briscoe MD [facility] [place] [address] documented as of this encounter Procedures Procedure [...] anemia Vitamin D deficiency BASIC METABOLIC PANEL Routine 02/12/2018 8:33 AM EDT Type 2 diabetes, controlled, with neuropathy Other iron deficiency anemia Vitamin D deficiency U ALBUMIN/CRE RATIO STAT 02/12/2018 8 :29 AM EDT Type 2 diabetes, controlled, with neuropathy Other iron deficiency anemia Vitamin D deficiency documented in this encounter Results * Differential, Automated (02/12/2018 8:33 AM EDT) Neutrophil % 61.0 % [facility] Neutrophil Absolute 5.82 1.70 - 6.10 x10(3)/[facility] Lymph % 31.2 % [facility] Lymphocytes Abs 3.0 0.9 - 3.2 x10(3)/[facility] Monocyte % 5.5 % [facility] Monocyte Abs 0.5 0.3 - 0.9 x10(3)/[facility] Eos % 1.2 % [facility] Eosinophils Abs 0.1 0.0 - 0.4 x10(3)/[facility] Basophil % 0.7 % [facility] Baso Absolute 0.1 0.0 - 0.1 x10(3)/[facility] Immature Gran % 0.40 % [facility] Comment: Immature granulocytes(IG's)percentage and absolute count will include metamyelocytes, myelocytes, and promyelocytes. Blood smears from CBCs yielding IG's will be scanned manually for concordance. If this scan disagrees with the automated IG or if promyelocytes are noted, a manual differential will be performed. Immature Gran Absolute 0.04 0.00 - 0.04 x10(3)/[facility] Blood specimen (specimen) 02/12/2018 8:33 AM EDT 02/12/2018 8:39 AM EDT Narrative Resulting Agency Comment Spec In Lab Judith Reinoso MD HEMATOLOGY ORDERA BLES [facility] [place] [address] * (ABNORMAL) Hemogram (02/12/2018 8:33 AM EDT) White Blood Cell 9.5 4.0 - 9.5 x10(3)/ L [facility] Red Blood Cell 4.74 4.00 - 5.21 x10(6)/ L [facility] Hemoglobin 13.0 11.7 - 15.5 gm/dL [facility] Hematocrit 41.3 35.7 - 45.8 % [facility] Mean Cell Volume 87.1 82.6 - 94.4 fL [facility] Mean Cell Hemoglobin 27.4 27.1 - 32.0 pg [facility] Mean Cell Hemoglobin Concentration 31.5(L) 31.7 - 35.0 gm/dL [facility] Platelet 237 145 - 357 x10(3)/[facility] RDW Standard Deviation 40.9 37.0 - 46.0 [facility] RDW coefficient of variation 12.7 11.5 - 14.1 % [facility] Mean Platelet Volume 10.8 7.6 - 12.9 fL [facility] NRBC% auto 0.0 % [facility] NRBC Absolute 0.000 0.000 - 0.000 x10(3)/[facility] Blood specimen (specimen) 02/12/2018 8:33 AM EDT 02/12/2018 8:39 AM EDT Narrative Resulting Agency Comment Spec In Lab Judith Reinoso MD HEMATOLOGY ORDERA BLES [facility] [place] [address] * Folate, serum (02/12/2018 8:33 AM EDT) Folate >20.0 4.8 - 24.2 ng/mL [facility] Blood specimen (specimen) 02/12/2018 8:33 AM EDT 02/12/2018 8:39 AM EDT Narrative Resulting Agency Comment Spec In Lab Cathy Dillon APRN CHEMISTRY ORDERAB LES Performing Organization Address [facility]/ZIP Co de Phone Number [facility] [place] [address] * (ABNORMAL) Vitamin B1, whole blood (02/12/2018 8:33 AM EDT) [facility] Signature Vit B1 Lvl Wb (FEBRUARY) 207(H) 70 - 180 nmol/L [facility] Comment: ADDITIONAL INFORMATION This test was developed and its performance characteristics determined by [facility] in a manner consistent with CLIA requirements. This test has not been cleared or approved by the U.S. Food and Drug Administration. Test Performed by: [facility] - [facility] [address] [place] [address] Blood specimen (specimen) 02/12/2018 8:33 AM EDT 02/12/2018 9:06 AM EDT Narrative Resulting Agency Comment Spec In Lab Cathy Dillon APRN LAB SEND OUT ORDE RABMARCELO Performing Organization Address [facility] Co de Phone Number [facility] [place] [address] * (ABNORMAL) Ferritin (02/12/2018 8:33 AM EDT) Ferritin 25(L) 30 - 400 ng/mL [facility] Comment: Pediatric reference ranges not verified at [facility], interpret with caution. Reference ranges for females greater than 50 years of age approach values for men, i.e., 30-400 ng/mL. Blood specimen (specimen) 02/12/2018 8:33 AM EDT 02/12/2018 8:39 AM EDT Narrative Resulting Agency Comment Spec In Lab Cathy Dillon APRN CHEMISTRY ORDERAB LES Performing Organization Address [facility] Co de Phone Number [facility] [place] [address] * Vitamin B12 (02/12/2018 8:33 AM EDT) Vitamin B12 543 232 - 1,245 pg/mL [facility] Comment: Please note: Effective 09/20/2017, the reference interval and the lower limit of detection for Vitamin B12 have been updated due to a new reagent formulation. Blood specimen (specimen) 02/12/2018 8:33 AM EDT 02/12/2018 8:39 AM EDT Narrative Resulting Agency Comment Spec In Lab Judith Reinoso MD CHEMISTRY ORDERAB LES Performing Organization Address [facility] Co de Phone Number [facility] [place] [address] * Iron and TIBC (02/12/2018 8:33 AM EDT) Pathologist [facility] Iron 79 30 - 150 mcg/dL [facility] TIBC 322 250 - 450 mcg/dL [facility] Iron Saturation 25 20 - 50 % [facility] Blood specimen (specimen) 02/12/2018 8:33 AM EDT 02/12/2018 8:39 AM EDT Narrative Resulting Agency Comment Spec In Lab Judith Reinoso MD CHEMISTRY ORDERAB LES Performing Organization Address [facility] Co de Phone Number [facility] [place] [address] * (ABNORMAL) Basic Metabolic Panel (non-fasting) (02/12/2018 8:33 AM EDT) Glucose 212(H) 65 - 199 mg/dL [facility] Comment:Diabetes: >=200 mg/d L plus symptoms Blood Urea Nitrogen 12 8 - 18 mg/dL [facility] Creatinine 0.55(L) 0.70 - 1.20 mg/dL [facility] Sodium 141 135 - 145 mmol/L [facility] Potassium 4.4 3.5 - 5.0 mmol/L [facility] Comment: Please note: ??Patients with WBC >100,000 may have falsely elevated Potassium levels. ??For accurate Potassium quantification in these patients send serum separator tube (gold top) for subsequent determinations. ??Contact the Clinical Chemistry Laboratory if there are any questions. Chloride 104 98 - 107 mmol/L [facility] Carbon Dioxide 28 22 - 31 mmol/L [facility] Anion Gap 9 5 - 15 mmol/L [facility] Calcium 9.2 8.5 - 10.5 mg/dL [facility] Est Glomerular Filtration Rate >60 >=60 [facility] Comment: The reported eGFR should be multiplied by 1.2 for patients. The MDRD is not an appropriate measure of renal function for patients with body mass extremes or in patients with acute kidney failure. http://[employer]/DHnkdep http://[employer]/DHMCnkf Blood specimen (specimen) 02/12/2018 8:33 AM EDT 02/12/2018 8:39 AM EDT Narrative Resulting Agency Comment Spec In Lab Judith Reinoso MD CHEMISTRY ORDERAB LES [facility] [place] [address] * (ABNORMAL) Hemoglobin A1c (02/12/2018 8:33 AM EDT) Hemoglobin A1c 7.5(H) 4.3 - 5.6 % [facility] Comment: Reference Range: 4.3 [...] Mellitus, Diabetes Care 2013; 36: Suppl. 1, R05-59 Estimated Average Glucose 169 mg/dL [facility] Comment: [...] into estimated average glucose values. ??Diabetes Care 2008:31(8):0178-0431. Blood specimen (specimen) 02/12/2018 8:33 AM EDT 02/12/2018 8:39 AM EDT Narrative Resulting Agency Comment Spec In Lab Judith Reinoso MD CHEMISTRY ORDERAB LES [facility] [place] [address] * Vitamin D, 25-Hydroxy (02/12/2018 8:33 AM EDT) Vitamin D Total 25 OH 58 30 - 100 ng/mL [facility] Comment: Deficient <10 ng/mL Insufficient 10 to 29 ng/mL Sufficient 30 to 100 ng/mL Potential Intoxication >100 ng/mL According to the [place] National Osteoporosis Foundation, Vitamin D concentrations >30 ng/mL are sufficient to protect bone health. ??The National Kidney Foundation has similarly stated that patients with Vitamin D concentrations <30ng/mL should be considered to be insufficient or deficient. http://[employer]/nkf-guidelines http://[employer]/nejm-VitD The IDS iSYS Vitamin D Immunoassay detects both 25-OH Vitamin D2 and 25-OH Vitamin D3, but only a total Vitamin D concentration is reported. Blood specimen (specimen) 02/12/2018 8:33 AM EDT 02/12/2018 10:22 AM EDT Narrative Resulting Agency Comment Spec In Lab Judith Reinoso MD CHEMISTRY ORDERAB LES [facility] [place] [address] * U Albumin/Cre Ratio (02/12/2018 8:29 AM EDT) Albumin / Creatinin Ratio, Urine Not Calculated 0 - 29 mcg/mg Cr [facility] Comment: Reference Ranges: <30 [...] Supplements (2012) 2, 357? 362 Albumin, Urine <3.0 mg/L [facility] Creatinine, Urine 55 mg/dL [facility] Urine specimen (specimen) 02/12/2018 8:29 AM EDT 02/12/2018 8:32 AM EDT Narrative Resulting Agency Comment Spec In Lab Judith Reinoso MD URINE ORDERABLES [facility] [place] [address] documented in this encounter Visit Diagnoses Diagnosis [...] type documented in this encounter Care Teams Suture Polisher Relationship Specialty Start Date End Date Nanda Read MD [facility] [address] [place] [address] PCP - General 09/14/10 06/06/18 documented as of this encounter
--- OUTSIDE RECORDS SUMMARY | 2024-09-18 16:12 | XMS_ITS | Encounter Summary ---
Author Organization [facility] [place] [address] Care Team Providers Care Tapper Shank Name Role Phone Nanda Read MD Primary Care Provider [phone] Encounter Details Date Type Department Care Team (Late st Contact Info) Description 08/10/2017 10:30 AM EDT Office [place] [address] Judith Reinoso MD [facility] [place] [address] Type 2 diabetes, controlled, with neuropathy; Other [...] bariatric team before the surgery. She increased [place] multivitamin to 2 tabdaily but this will [...] bariatric team. Her B12 was trending down [id number] to 300s and we already gave her [...] 50,000 iu 1x/week and cont 2 of [place] MVI which contains iron (she couldnot tolerate [...] AM EDT TH Visit (TeleHealth) [place] [address] Wyatt Higgins MD [facility] [place] [address] documented as of this encounter Results * Vitamin B12 (02/12/2018 8:33 AM EDT) Vitamin B12 543 232 - 1,245 pg/mL [facility] Comment: Please note: Effective 09/20/2017, the reference interval and the lower limit of detection for Vitamin B12 have been updated due to a new reagent formulation. Blood specimen (specimen) 02/12/2018 8:33 AM EDT 02/12/2018 8:39 AM EDT Narrative Resulting Agency Comment Spec In Lab Judith Reinoso MD CHEMISTRY ORDERAB LES Performing Organization Address City/[facility]/ZIP Co de Phone Number [facility] [place] [address] * Iron and TIBC (02/12/2018 8:33 AM EDT) Iron 79 30 - 150 mcg/dL [facility] TIBC 322 250 - 450 mcg/dL [facility] Iron Saturation 25 20 - 50 % [facility] Blood specimen (specimen) 02/12/2018 8:33 AM EDT 02/12/2018 8:39 AM EDT Narrative Resulting Agency Comment Spec In Lab Judith Reinoso MD CHEMISTRY ORDERAB LES [facility] [place] [address] * (ABNORMAL) Basic Metabolic Panel (non-fasting) (02/12/2018 8:33 AM EDT) Glucose 212(H) 65 - 199 mg/dL [facility] Comment:Diabetes: >=200 mg/d L plus symptoms Blood Urea Nitrogen 12 8 - 18 mg/dL [facility] Creatinine 0.55(L) 0.70 - 1.20 mg/dL [facility] Sodium 141 135 - 145 mmol/L [facility] Potassium 4.4 3.5 - 5.0 mmol/L [facility] Comment: Please note: ??Patients with WBC >100,000 may have falsely elevated Potassium levels. ??For accurate Potassium quantification in these patients send serum separator tube (gold top) for subsequent determinations. ??Contact the Clinical Chemistry Laboratory if there are any questions. Chloride 104 98 - 107 mmol/L [facility] Carbon Dioxide 28 22 - 31 mmol/L [facility] Anion Gap 9 5 - 15 mmol/L [facility] Calcium 9.2 8.5 - 10.5 mg/dL [facility] Est Glomerular Filtration Rate >60 >=60 [facility] Comment: The reported eGFR should be multiplied by 1.2 for patients. The MDRD is not an appropriate measure of renal function for patients with body mass extremes or in patients with acute kidney failure. http://Engezni[employer]/DHnkdep http://LifeBlinx/DHMCnkf Blood specimen (specimen) 02/12/2018 8:33 AM EDT 02/12/2018 8:39 AM EDT Narrative Resulting Agency Comment Spec In Lab Judith Reinoso MD CHEMISTRY ORDERAB LES Performing Organization Address City/State/[facility] Co de Phone Number [facility] [address] * Vitamin D, 25-Hydroxy (02/12/2018 8:33 AM EDT) Vitamin D Total 25 OH 58 30 - 100 ng/mL [facility] Comment: Deficient <10 ng/mL Insufficient 10 to 29 ng/mL Sufficient 30 to 100 ng/mL Potential Intoxication >100 ng/mL According to the [place] National Osteoporosis Foundation, Vitamin D concentrations >30 ng/mL are sufficient to protect bone health. ??The National Kidney Foundation has similarly stated that patients with Vitamin D concentrations <30ng/mL should be considered to be insufficient or deficient. http://[employer]ge[employer]/nkf-guidelines http://[employer]ge[employer]/nejm-VitD The IDS i[employer] Vitamin D Immunoassay detects both 25-OH Vitamin D2 and 25-OH Vitamin D3, but only a total Vitamin D concentration is reported. Blood specimen (specimen) 02/12/2018 8:33 AM EDT 02/12/2018 10:22 AM EDT Narrative Resulting Agency Comment Spec In Lab Judith Reinoso MD CHEMISTRY ORDERAB LES [facility] [place] [address] * (ABNORMAL) Hemoglobin A1c (02/12/2018 8:33 AM [...] Mellitus, Diabetes Care 2013; 36: Suppl. 1, S67-07 Estimated Average Glucose 169 mg/dL [facility] Comment: eAG equivalents [...] into estimated average glucose values. ??Diabetes Care 2008:31(8):8011-2624. Blood specimen (specimen) 02/12/2018 8:33 AM EDT 02/12/2018 8:39 AM EDT Narrative Resulting Agency Comment Spec In Lab Judith Reinoso MD CHEMISTRY ORDERAB LES [facility] [place] [address] * U Albumin/Cre Ratio (02/12/2018 8:29 AM EDT) Albumin / Creatinin Ratio, Urine Not Calculated 0 - 29 mcg/mg Cr [facility] [...] 2, 357? 362 Albumin, Urine <3.0 mg/L [facility] Creatinine, Urine 55 mg/dL [facility] Urine specimen (specimen) 02/12/2018 8:29 AM EDT 02/12/2018 8:32 AM EDT Narrative Resulting Agency Comment Spec In Lab Judith Reinoso MD URINE ORDERABLES [facility] [place] [address] documented in this encounter Visit Diagnoses Diagnosis Type 2 diabetes, controlled, with neuropathy Type II or unspecified type diabetes mellitus with neurological manifestations, not stated as uncontrolled Other iron deficiency anemia Vitamin D deficiency Unspecified vitamin D deficiency documented in this encounter Care Teams Tapper Shank Relationship Specialty Start Date End Date Nanda Read MD [facility] [address] [place] [address] PCP - General 09/14/10 06/06/18 documented as of this encounter
--- OUTSIDE RECORDS SUMMARY | 2024-09-18 16:12 | XMS_ITS | Encounter Summary ---
Author Organization [facility] [place] [address] Care Team Providers Care Athletic Equipment Manager Name Role Phone Nanda Read MD Primary Care Provider Reason for Visit * Reason Comments Follow-up three week follow up s/p joy 06/30/17 Encounter Details Date Type Department Care Team (Late st Contact Info) Description 09/26/2017 10:20 AM EST Office [place] [address] Christine Whitley APRN [facility] [place] [place] [address] Surgery follow-up Social History Tobacco Use Types [...] AM EDT TH Visit (TeleHealth) [place] [address] Wyatt Higgins MD [facility] [place] [place] [address] documented as of this encounter Visit Diagnoses Diagnosis Surgery follow-up Follow-up examination, following unspecified surgery documented in this encounter Care Teams Athletic Equipment Manager Relationship Specialty Start Date End Date Nanda Read MD [facility] [address] [place] [address] PCP - General 09/14/10 06/06/18 documented as of this encounter
--- OUTSIDE RECORDS SUMMARY | 2024-09-18 16:12 | XMS_ITS | Encounter Summary ---
[place] [address] Care Team Providers Care Telecommunicator Supervisor Name Role Phone Nanda Read MD Primary Care Provider Encounter Details Date Type Department Care Team (Late st Contact Info) Description 08/11/2017 Telephone [place] [address] Tracy Tavarez LPN Social History Tobacco Use [...] 50,000 iu 1x/week and cont 2 of [place] MVI which contains iron (she couldnot tolerate a separate iron supplement due to constipation documented in this encounter Plan of Treatment Upcoming Encounters Date Type Department Care Team (Late st Contact Info) Description 02/19/2025 9:00 AM EDT TH Visit (TeleHealth) [place] [address] Wyatt Higgins MD [facility] [place] [address] documented as of this encounter Visit Diagnoses Not on filedocumented in this encounter Care Teams Telecommunicator Supervisor Relationship Specialty Start Date End Date Nanda Read MD [facility] [address] [place] [address] PCP - General 09/14/10 06/06/18 documented as of this encounter
--- OUTSIDE RECORDS SUMMARY | 2024-09-18 16:12 | XMS_ITS | Encounter Summary ---
[place] [address] Care Team Providers Care Booky Name Role Phone Patrick Clement MD Primary Care Provider [phone] Reason for Visit * Reason Onset Date Comments Prior Authorization 08/15/2018 Kiley Encounter Details Date Type Department Care Team (Late st Contact Info) Description 08/15/2018 [place] [address] Mateus Castro Prior Authorization (Kiley) Social History [...] approved for both Initial and maintenance, PA# [id number] (Initial) and [id number] (maintenance), can be filled at Pharmacy, $3 copay. CASE/REFERENCE # [id number] (Initial) and [id number] (Maintenance) APPROVAL NOTIFICATION RECEIVED VIA: Fax over approval forms * Telephone Encounter - Mateus Castro - 08/15/2018 2:59 PM EDT [facility], Medication Prior Authorization Patient: Martha Benoit Patient : 1965 Patient Address: [address] [address] (home) Medication: Humira Pen-PS/UV Starter 40mg/0.8mL Pen Kit Subscriber Insurance: [place] Physician: Galdino Gilliland Sent Via: FAX [...] AM EDT TH Visit (TeleHealth) [place] [address] Wyatt Higgins MD [facility] [place] [address] documented as of this encounter Visit Diagnoses Not on filedocumented in this encounter Care Teams Booky Relationship Specialty Start Date End Date Patrick Clement MD PCP - General Family Medicine 06/07/18 02/04/19 documented as of this encounter
--- OUTSIDE RECORDS SUMMARY | 2024-09-18 16:13 | XMS_ITS | Encounter Summary ---
Author Organization [facility] [place] [address] Care Team Providers Care Middle Stitcher Name Role Phone MunozRuth jerome Lilibeth JUAREZ Primary Care Provider + Reason for Visit * Reason Comments Medication Refill Encounter Details Date Type Department Care Team (Late st Contact Info) Description 03/21/2017 Ref[place] [address] Cathy Dillon APRN [facility] [place] [address] Social History Tobacco Use Types Packs/Day Years [...] AM EDT TH Visit (TeleHealth) [place] [address] Wyatt Higgins MD [facility] [place] [address] documented as of this encounter Visit Diagnoses Not on filedocumented in this encounter Care Teams Middle Stitcher Relationship Specialty Start Date End Date Ruth Munoz APRN [address] [place] [address] PCP - General Family Medicine 02/05/19 documented as of this encounter
--- OUTSIDE RECORDS SUMMARY | 2024-09-18 16:13 | XMS_ITS | Encounter Summary ---
Author Organization [facility] [place] [address] Care Team Providers Care Customer Greeter Name Role Phone Nanda Read MD Primary Care Provider [phone] Encounter Details Date Type Department Care Team (Late st Contact Info) Description 06/07/2017 External Results [place] [address] Robert Victor MD [facility] [place] [place] [address] Social History Tobacco Use Types Packs/Day Years [...] AM EDT TH Visit (TeleHealth) [place] [address] Wyatt Higgins MD [facility] [place] [place] [address] documented as of this encounter Procedures Procedure Name Priority Date/Time Associated Diagnosis Comments EMG SCAN Routine 06/05/2017 documented in this encounter Results * Scan Doc: EMG (06/05/2017) Robert Victor MD MEDIA MGR SCAN EX T ORDR/RSLT documented in this encounter Visit Diagnoses Not on filedocumented in this encounter Care Teams Customer Greeter Relationship Specialty Start Date End Date Nanda Read MD [facility] D [address] [place] [address] PCP - General 09/14/10 06/06/18 documented as of this encounter
--- OUTSIDE RECORDS SUMMARY | 2024-09-18 16:13 | XMS_ITS | Encounter Summary ---
Author Organization [facility] [place] [address] Care Team Providers Care Quality Control Chemist Name Role Phone Nanda Read MD Primary Care Provider [phone] Encounter Details Date Type Department Care Team (Late st Contact Info) Description 02/23/2016 Telephone [place] [address] Nany Tai, RD [facility] [place] [address] Social History Tobacco Use Types Packs/Day Years [...] AM EDT TH Visit (TeleHealth) [place] [address] Wyatt Higgins MD [facility] [place] [address] documented as of this encounter Visit Diagnoses Not on filedocumented in this encounter Care Teams Quality Control Chemist Relationship Specialty Start Date End Date Nanda Read MD [facility] [address] [place] [address] PCP - General 09/14/10 06/06/18 documented as of this encounter
--- OUTSIDE RECORDS SUMMARY | 2024-09-18 16:13 | XMS_ITS | Encounter Summary ---
Author Organization [facility] Carlos [facility] [place] [address] Care Team Providers Care Textile Clothing And Footwear Mechanic Name Role Phone Nanda Read MD Primary Care Provider [phone] Reason for Visit * Auth/Cert Specialty Diagnoses / Procedures Referred By Patricio monsivais Referred To Contact Diagnoses Localized adiposity Abdominal pannus Procedures PRO EXCISE EXCESS SKIN TISSUE, ABDOMEN ABDOMINOPLASTY (WRVU 17.11) Referral ID Status Reason Start Date Expiration Date Visits Re quested Visits Authorized [id number] 1 1 Encounter Details Date Type Department Care Team (Late st Contact Info) Description 06/29/2017 3:41 PM EDT Anesthesia Event [place] [address] Jose D Hickey MD [facility] [place] [address] Yair Gregory MD [facility] [place] [address] Anesthesia Record Procedure Summary Procedure Name Responsible Anesthesiologist Anesthesia Start Time Anesthesia Stop Time PANNICULECTOMY (WRVU 17.11) (Abdomen) Jose D Hickey MD 06/29/17 1541 06/29/17 1758 Events Date Time Event Comment 06/29/2017 1335 1541 Start 1547 AN Verify 1548 An Start Data 1550 An Induction 1553 An Intubation 1553 Anesthesia Ready 1617 Procedure Start 1624 Break/Relief In DESI Sylvester, HSE ADVISOR 1708 Quick Note Fluconazole 400 mg over [...] utility RA#[id number]) 01/25/16 1448 by Johanne [place] APRN 06/20/22 1715 by Tyrell Garcia (RETIRED) Peripheral IV Line - Single Lumen 06/29/17; 1410; metacarpal vein (top of hand), right; zomx-qiv-yqhqvl catheter system; 20 gauge, 1 in length; [...] Nancy Ruiz LNA Supraglottic Mask Ventilation: Ea sy (1); LMA Size: 4; Inserted by: Colt; [...] Ofelia Encarnacion - 06/29/2017 5:59 PM EDT [facility] Department of Anesthesiology Post-procedure Note Patient: Martha Benoit Procedure Summary Date Anesthesia Start Anesthesia Stop Room / Location 06/29/17 1541 1758 [facility] OR [facility] MAIN OR Procedure Diagnosis Surgeon Responsible Provider ABDOMINOPLASTY (WRVU 17.11) (N/A Abdomen); MODIFIER PANNICULECTOMY (Bilateral Abdomen) (Abdominal pannus) James Rosenthal MD Chow, Vinca W, MD All Anesthesia Providers: Anesthesiologist: Jose D Hickey MD Golf Course Manager: Yair Gregory MD; Ofelia Encarnacion MD Last [...] Julio Cesar Wright suggested lumbar puncture in [place] -if high protein, may need IVIG therapy [...] Bariatric Surgery Program evaluations with RD and PUNCHBOARD FILLING MACHINE OPERATOR: 11/03/15 4. Weight history: 198 pounds on 08/25/04, 207 pounds on 03/20/09, 249 pounds on 07/01/14, 253 pounds on 02/20/15 5. Gallbladder status: 6. Insurer specific requirements: [place] medicaid- 3 months of supervised counseling 7. BSP Team meeting discussion: no Post surgery course: 1. Admitted to [facility] on 01/24/16 with nausea and vomiting, failure to progress diet.Transfer to [facility] on 01/25/16 ??? Vitamin D deficiency Lab [...] ureteral stone extraction Jul - [facility] - [place] ??? Chronic foot pain-s/p heel spur surgeries [...] GASTROPLASTY, performed by Jose Mai MD at [facility] MAIN OR ??? PRO UPPER GI ENDOSCOPY, BIOPSY 11/16/2011 EGD WITH BIOPSY performed by ALISA RICHARDS at [facility] ENDOSCOPY ??? PRO UPPER GI ENDOSCOPY, DIAGNOSTIC N/A 11/04/2015 EGD, UPPER GI ENDOSCOPY performed by Kisha Doss MD at [facility] ENDOSCOPY ??? PRO UPPER GI ENDOSCOPY, DIAGNOSTIC N/A 01/04/2016 ENDOSCOPY, UPPER GI, DIAGNOSTIC, WITH OR WITHOUT SPECIMENS performed by Jose Mai MD at [facility] MAIN OR ??? TUBAL LIGATION ??? UPPER GI ENDOSCOPY, EXAM 11/16/2011 UPPER GI ENDOSCOPY performed by ALISA RICHARDS at [facility] ENDOSCOPY Social History Substance Use Topics ??? [...] AM EDT TH Visit (TeleHealth) [place] [address] Wyatt Higgins MD [facility] [place] [address] documented as of this encounter Visit Diagnoses [...] indication in Comments field) / surgical prophylaxis Given 06/29/2017 5:08 PM EDT 400 mg [...] mL/hr documented in this encounter Care Teams Textile Clothing And Footwear Mechanic Relationship Specialty Start Date End Date Nanda Read MD [facility] [address] [place] [address] PCP - General 09/14/10 06/06/18 documented as of this encounter
--- OUTSIDE RECORDS SUMMARY | 2024-09-18 16:13 | XMS_ITS | Encounter Summary ---
Author Organization [facility] [place] [address] Care Team Providers Care Interface Control Officer Name Role Phone MunozRuth jerome Lilibeth JUAREZ Primary Care Provider + Reason for Visit * Reason Comments Medication Refill Encounter Details Date Type Department Care Team (Late st Contact Info) Description 10/02/2016 Refill [place] [address] Cathy Dillon APRN [facility] [place] [place] [address] Social History Tobacco Use Types Packs/Day Years [...] AM EDT TH Visit (TeleHealth) [place] [address] Wyatt Higgins MD [facility] [place] [place] [address] documented as of this encounter Visit Diagnoses Not on filedocumented in this encounter Care Teams Interface Control Officer Relationship Specialty Start Date End Date Ruth Munoz APRN [address] [place] [address] PCP - General Family Medicine 02/05/19 documented as of this encounter
--- OUTSIDE RECORDS SUMMARY | 2024-09-18 16:13 | XMS_ITS | Encounter Summary ---
Author Organization [facility] Carlos [facility] [place] [address] Care Team Providers Care Brim Welt Sewing Machine Operator Name Role Phone Nanda Read MD Primary Care Provider Encounter Details Date Type Department Care Team (Late st Contact Info) Description 05/01/2017 Orders Only [place] [address] Cathy Dillon, GAS ADJUSTER [facility] [place] [address] Disorder of iron metabolism; Status post bariatric [...] AM EDT TH Visit (TeleHealth) [place] [address] Wyatt Higgins MD [facility] [place] [address] documented as of this encounter Results * (ABNORMAL) Ferritin (08/10/2017 9:30 AM EDT) [facility] Ferritin 25(L) 30 - 400 ng/mL [facility] Comment: Pediatric reference ranges not verified at [facility], interpret with caution. Reference ranges for females greater than 50 years of age approach values for men, i.e., 30-400 ng/mL. Blood specimen (specimen) 08/10/2017 9:30 AM EDT 08/10/2017 9:37 AM EDT Narrative Resulting Agency Comment Spec In Lab Cathy Dillon GAS ADJUSTER CHEMISTRY ORDERAB LES [facility] [place] [address] * (ABNORMAL) Hemogram (08/10/2017 9:30 AM EDT) [facility] White Blood Cell 9.8(H) 4.0 - 9.5 x10(3)/mc L [facility] Red Blood Cell 4.64 4.00 - 5.21 x10(6)/mc L [facility] Hemoglobin 12.9 11.7 - 15.5 gm/dL [facility] Hematocrit 39.2 35.7 - 45.8 % [facility] Mean Cell Volume 84.5 82.6 - 94.4 fL [facility] Mean Cell Hemoglobin 27.8 27.1 - 32.0 pg [facility] Mean Cell Hemoglobin Concentration 32.9 31.7 - 35.0 gm/dL [facility] Platelet 256 145 - 357 x10(3)/mc L [facility] RDW Standard Deviation 39.9 37.0 - 46.0 fL [facility] RDW coefficient of variation 13.0 11.5 - 14.1 % [facility] Mean Platelet Volume 11.3 7.6 - 12.9 fL [facility] NRBC% auto 0.0 % [facility] NRBC Absolute 0.000 0.000 - 0.000 x10(3)/mc L [facility] Blood specimen (specimen) 08/10/2017 9:30 AM EDT 08/10/2017 9:37 AM EDT Narrative Resulting Agency Comment Spec In Lab Cathy Dillon APRN HEMATOLOGY ORDERA BLES [facility] [place] [address] documented in this encounter Visit Diagnoses Diagnosis Disorder of iron metabolism Other disorders of iron metabolism Status post bariatric surgery Bariatric surgery status Intestinal malabsorption, unspecified type Iron deficiency Iron deficiency anemia, unspecified documented in this encounter Care Teams Brim Welt Sewing Machine Operator Relationship Specialty Start Date End Date Nanda Read MD [facility] [address] [place] [address] PCP - General 09/14/10 06/06/18 documented as of this encounter
--- OUTSIDE RECORDS SUMMARY | 2024-09-18 16:13 | XMS_ITS | Encounter Summary ---
[place] [address] Care Team Providers Care Assistant Manager Quality Management Name Role Phone Nanda Read MD Primary Care Provider [phone] Encounter Details Date Type Department Care Team (Latest Contact Info) Description 04/27/2017 10:55 AM EDT Laboratory Appointment Lab [address] [place] [address] Encounter for vitamin deficiency screening; [...] AM EDT TH Visit (TeleHealth) [place] [address] Wyatt Higgins MD [facility] [place] [address] documented as of this encounter Procedures Procedure [...] Hemoglobin A1c (04/27/2017 11:12 AM EDT) Hemoglobin A1c 6.5(H) 4.3 - 5.6 % [facility] Comment: Reference Range: 4.3 [...] Mellitus, Diabetes Care 2013; 36: Suppl. 1, B30-55 Estimated Average Glucose 140 mg/dL [facility] Comment: eAG [...] into estimated average glucose values. ??Diabetes Care 2008:31(8):8469-3773. Blood specimen (specimen) 04/27/2017 11:12 AM EDT 04/27/2017 11:19 AM EDT Narrative Resulting Agency Comment Spec In Lab James Rosenthal MD CHEMISTRY ORDERABLES [facility] [place] [address] * Prealbumin (04/27/2017 11:12 AM EDT) Prealbumin 21 20 - 40 mg/dL [facility] Comment: Prealbumin levels are generally lower in the pediatric population; adult concentrations are usually attained near puberty. Blood specimen (specimen) 04/27/2017 11:12 AM EDT 04/27/2017 11:19 AM EDT Narrative Resulting Agency Comment Spec In Lab Cathy Dillon APRN CHEMISTRY ORDERAB LES Performing Organization Address City/[facility]/ZIP Co de Phone Number [facility] [place] [address] * Folate, serum (04/27/2017 11:12 AM EDT) [facility] Folate >20.0 4.8 - 24.2 ng/mL [facility] Blood specimen (specimen) 04/27/2017 11:12 AM EDT 04/27/2017 11:19 AM EDT Narrative Resulting Agency Comment Spec In Lab Cathy Dillon APRN CHEMISTRY ORDERAB LES Performing Organization Address [facility] Co de Phone Number [facility] [place] [address] * (ABNORMAL) Vitamin B1, whole blood (04/27/2017 11:12 AM EDT) [facility] Vit B1 Lvl Wb (FEBRUARY) 182(H) 70 - 180 nmol/L [facility] Comment: ADDITIONAL INFORMATION This test was developed and its performance characteristics determined by [facility] in a manner consistent with CLIA requirements. This test has not been cleared or approved by the U.S. Food and Drug Administration. Test Performed by: [facility] - [address] [address] Blood specimen (specimen) 04/27/2017 11:12 AM EDT 04/27/2017 11:25 AM EDT Narrative Resulting Agency Comment Spec In Lab Cathy Dillon APRN LAB SEND OUT ORDE RABMARCELO Performing Organization Address [facility] Co de Phone Number [facility] [place] [address] * (ABNORMAL) Iron and TIBC (04/27/2017 11:12 AM EDT) [facility] Iron 51 30 - 150 mcg/dL [facility] TIBC 324 250 - 450 mcg/dL [facility] Iron Saturation 16(L) 20 - 50 % [facility] Blood specimen (specimen) 04/27/2017 11:12 AM EDT 04/27/2017 11:19 AM EDT Narrative Resulting Agency Comment Spec In Lab Cathy Dillon LEAK DETECTION ENGINEER CHEMISTRY ORDERAB LES Performing Organization Address City/[facility]/ZIP Co de Phone Number [facility] [place] [address] * Ferritin (04/27/2017 11:12 AM EDT) Ferritin 35 30 - 400 ng/mL [facility] Comment: Pediatric reference ranges not verified at [facility], interpret with caution. Reference ranges for females greater than 50 years of age approach values for men, i.e., 30-400 ng/mL. Blood specimen (specimen) 04/27/2017 11:12 AM EDT 04/27/2017 11:19 AM EDT Narrative Resulting Agency Comment Spec In Lab Cathy Dillon APRN CHEMISTRY ORDERAB LES Performing Organization Address City/[facility]/ZIP Co de Phone Number [facility] [place] [address] documented in this encounter Visit Diagnoses Diagnosis Encounter for vitamin deficiency screening Screening for other and unspecified endocrine, nutritional, metabolic, and immunity disorders Hair loss Alopecia, unspecified Disorder of iron metabolism Other disorders of iron metabolism Status post bariatric surgery Bariatric surgery status Intestinal malabsorption, unspecified type Protein-calorie undernutrition Unspecified protein-calorie malnutrition Abdominal pannus Localized adiposity documented in this encounter Care Teams Assistant Manager Quality Management Relationship Specialty Start Date End Date Nanda Read MD [facility] [address] [place] [address] PCP - General 09/14/10 06/06/18 documented as of this encounter
--- OUTSIDE RECORDS SUMMARY | 2024-09-18 16:13 | XMS_ITS | Encounter Summary ---
Author Organization [facility] [place] [address] Care Team Providers Care Short Goods Drier Name Role Phone Nanda Reda MD Primary Care Provider Reason for Visit * Reason Comments Follow-up Bariatric Surgery Pr richard post surgery follow up Encounter Details Date Type Department Care Team (Late st Contact Info) Description 07/05/2016 2:00 PM EDT Office [place] [address] Cathy Dillon, HOUSEKEEPING SUPERVISOR [facility] [place] [address] Disorder of iron metabolism; [...] Taylor Vance - 07/05/2016 2:00 PM EDT [facility] Admin coordinator Rosey: [phone] Dietitian: [phone] Surgeons/ nurse practitioner: [phone] Nurse line: [phone] Your excess body weight lost: 48.7% Testing:lab next visit Next visit: 6 months to coordinate with Dr Reinoso Routine visits are done at 4.8,12, 18 and 24 months after surgery, and yearly thereafter. Please call [phone] if you do not receive an appointment [...] of every month from 1-2 PM at [facility]- no registration required Internet resources: www.Looxii www.[employer] www.[employer] www.[employer] (doug Vera) [email or web address]MAN[facility]ariatricSurgery Bariatric surgery apps- [facility] Post-lexy Books [employer] Magazines: - Recipes for [...] summary: Early Prolonged hospital stay. Admitted to [facility] on 01/24/16 with nausea and vomiting, failure to progress diet. Transfer to [facility] on 01/25/16 Late none Visits summary: Compliance [...] - Complications: retinopathy, peripheral autonomic neuropathy, sees button machine operator for calluses, declines flu shot ??? [...] performed by ALISA RICHARDS at [facility] Allergies Allergen Reactions ??? Codeine Phosphate [...] 1/2 mL 30 x 5/16 Syrg by [facility].(Non-Drug; Combo Route) route 2 times daily. Using [...] blood in stool [] chronic diarrhea/ constipation SLEDGER: [] LMP: [] control [] menorrhagia [+] [...] SYSTOLIC 122 DIASTOLIC 67 PULSE 85 Height (Nepalese) 5' 3 Height (Metric) 160 cm Weight (Nepalese) 189 lbs Weight (Metric) 85.73 kg BODY [...] labwork is done by the primary child care specialist: please send a copy to the Bariatric Surgery Program, General Surgery Clinic, [facility] Questions regarding [facility] Bariatric Surgery Program patients: please call Denny Dillon APRN at [phone] or [phone]. E-mail: * Taylor Vance - 07/05/2016 2:00 [...] Supplement Type Brand/Form Dosage/Amount Frequency Comments Multivitamin Embarrass's chewable 1 Twice daily Calcium none Vitamin B12 none Iron rx Took a couple times but constipates her Vitamin D3 rx 50,000 IU 1-2x/ week Tracking Intake: none Daily Oral Intake: Breakfast 1 Egg Or 1/4 cup plain oatmeal w/ water or milk AM Snack [place] or 2-3 crackers or 3-4 squares of [...] AM EDT TH Visit (TeleHealth) [place] [address] Wyatt Higgins MD [facility] [place] [address] documented as of this encounter Results * Folate, serum (07/05/2016 2:18 PM EDT) [facility] Folate 18.6 4.8 - 24.2 ng/mL [facility] Blood specimen (specimen) 07/05/2016 2:18 PM EDT 07/05/2016 3:00 PM EDT Narrative Resulting Agency Comment Spec In Lab Jose Mai MD CHEMISTRY ORDERABLE S Performing Organization Address City/[facility] Co de Phone Number [facility] [place] [address] * (ABNORMAL) Vitamin B1, whole blood (07/05/2016 2:18 PM EDT) [facility] Vit B1 Lvl Wb (FEBRUARY) 213(H) 70 - 180 nmol/L [facility] Comment: INTERPRETIVE INFORMATION: Vitamin B1, Whole Blood This assay measures the concentration of thiamine diphosphate (TDP), the primary active form of vitamin B1. Approximately 90 percent of vitamin B1 present in whole blood is TDP. Thiamine and thiamine monophosphate, which comprise the remaining 10 percent, are not measured. Test developed and characteristics determined by [facility]. See Compliance Statement B: [email or web address] Test Performed by: [facility] [address] [place] [id number] Blood specimen (specimen) 07/05/2016 2:18 PM EDT 07/05/2016 3:18 PM EDT Narrative Resulting Agency Comment Spec In Lab Jose Mai MD LAB SEND OUT ORDERA BLES Performing Organization Address City/[facility]/ZIP Co de Phone Number [facility] [place] [address] * Ferritin (07/05/2016 2:18 PM EDT) [facility] Ferritin 54 30 - 400 ng/mL [facility] Comment: Pediatric reference ranges not verified at [facility], interpret with caution. Reference ranges for females greater than 50 years of age approach values for men, i.e., 30-400 ng/mL. Blood specimen (specimen) 07/05/2016 2:18 PM EDT 07/05/2016 3:00 PM EDT Narrative Resulting Agency Comment Spec In Lab Jose Mai MD CHEMISTRY ORDERABLE S Performing Organization Address City/[facility]/ZIP Co de Phone Number [facility] [place] [address] * Prealbumin (07/05/2016 2:18 PM EDT) Prealbumin 23 20 - 40 mg/dL [facility] Comment: Prealbumin levels are generally lower in the pediatric population; adult concentrations are usually attained near puberty. Blood specimen (specimen) 07/05/2016 2:18 PM EDT 07/05/2016 3:00 PM EDT Narrative Resulting Agency Comment Spec In Lab Jose Mai MD CHEMISTRY ORDERABLE S Performing Organization Address [facility] Co de Phone Number [facility] [place] [address] * (ABNORMAL) Comprehensive metabolic panel (non-fasting) (07/05/2016 2:18 PM EDT) Glucose 117 65 - 199 mg/dL [facility] Comment:Diabetes: >=200 mg/d L plus symptoms Blood Urea Nitrogen 9 8 - 18 mg/dL [facility] Creatinine 0.55(L) 0.70 - 1.20 mg/dL [facility] Comment: Please note that the pediatric reference intervals supplied above were not validated at [facility]. Results from pediatric patients should be interpreted in conjunction to the patient's age, height and muscle mass. Sodium 143 135 - 145 mmol/L [facility] Potassium 4.1 3.5 - 5.0 mmol/L [facility] Comment: Please note: ??Patients with WBC >100,000 may have falsely elevated Potassium levels. ??For accurate Potassium quantification in these patients send serum separator tube (gold top) for subsequent determinations. ??Contact the Clinical Chemistry Laboratory if there are any questions. Chloride 101 98 - 107 mmol/L [facility] Carbon Dioxide 25 22 - 31 mmol/L [facility] Anion Gap 17(H) 5 - 15 mmol/L [facility] Calcium 9.3 8.5 - 10.5 mg/dL [facility] Protein, Total 7.6 6.1 - 8.0 gm/dL [facility] Albumin 3.8 3.2 - 5.2 gm/dL [facility] Aspartate Aminotransferase 18 0 - 30 unit/L [facility] Alanine Aminotransferase 18 0 - 30 unit/L [facility] Alkaline Phosphatase 105(H) 40 - 104 unit/L [facility] Bilirubin, Total 0.3 0.2 - 1.3 mg/dL [facility] Bilirubin, Direct 0.1 0.0 - 0.3 mg/dL [facility] Est Glomerular Filtration Rate >60 >=60 [facility] Comment: [...] the following links into your internet browser. [email or web address] Blood specimen (specimen) 07/05/2016 2:18 PM EDT 07/05/2016 3:00 PM EDT Narrative Resulting Agency Comment Spec In Lab Jose Mai MD CHEMISTRY ORDERABLE S [facility] [place] [address] * (ABNORMAL) Hemogram (07/05/2016 2:18 PM EDT) White Blood Cell 12.0(H) 4.0 - 9.5 x10(3)/mc L [facility] Red Blood Cell 5.17 4.00 - 5.21 x10(6)/mc L [facility] Hemoglobin 14.0 11.7 - 15.5 gm/dL [facility] Hematocrit 43.5 35.7 - 45.8 % [facility] Mean Cell Volume 84.1 82.6 - 94.4 fL [facility] Mean Cell Hemoglobin 27.1 27.1 - 32.0 pg [facility] Mean Cell Hemoglobin Concentration 32.2 31.7 - 35.0 gm/dL [facility] Platelet 250 145 - 357 x10(3)/mc L [facility] RDW Standard Deviation 42.2 37.0 - 46.0 fL [facility] RDW coefficient of variation 13.6 11.5 - 14.1 % [facility] Mean Platelet Volume 12.5 7.6 - 12.9 fL [facility] NRBC% auto 0.0 % [facility] NRBC Absolute 0.000 0.000 - 0.000 x10(3)/mc L [facility] Blood specimen (specimen) 07/05/2016 2:18 PM EDT 07/05/2016 3:00 PM EDT Narrative Resulting Agency Comment Spec In Lab Jose Mai MD HEMATOLOGY ORDERABL ES Performing Organization Address City/State/[facility] Co de Phone Number [facility] [place] [address] documented in this encounter Visit Diagnoses Diagnosis Disorder of iron metabolism Other disorders of iron metabolism Status post bariatric surgery Bariatric surgery status Intestinal malabsorption, unspecified type documented in this encounter Care Teams Short Goods Drier Relationship Specialty Start Date End Date Nanda Read MD [facility] [address] [place] [address] PCP - General 09/14/10 06/06/18 documented as of this encounter
--- OUTSIDE RECORDS SUMMARY | 2024-09-18 16:13 | XMS_ITS | Encounter Summary ---
Author Organization Formerly [facility] [place] [address] Care Team Providers Care Fbi Sharpshooter Name Role Phone Nanda Read MD Primary Care Provider [phone] Encounter Details Date Type Department Care Team (Late st Contact Info) Description 02/06/2017 9:00 AM EDT Office [place] [address] Judith Reinoso MD [facility] [place] [address] Type 2 diabetes, controlled, with neuropathy; Vitamin [...] aches. She has been taking 2 of [place] MVI daily and could not tolerate iron [...] will see Dr. Mai and Cathy Dillon RED HAT OPEN STACK ADMINISTRATOR again soon as well. She is better [...] team before the surgery. She recently increased [place] multivitamin to 2 tab dailybut this will [...] 1/2 mL 30 x 5/16 Syrg by [facility]Non-Drug; Combo Route) route 2 times daily. Using [...] aches. She has been taking 2 of [place] MVI daily and could not tolerate iron [...] encounter Miscellaneous Notes * Addendum Note - Gour, Rufina R. - 02/06/2017 9:58 AM EDTAddended by: RUFINA COLEMAN on: 02/06/2017 09:58 AM Modules accepted: Orders documented in this encounter Plan of Treatment Upcoming Encounters Date Type Department Care Team (Late st Contact Info) Description 02/19/2025 9:00 AM EDT TH Visit (TeleHealth) [place] [address] Wyatt Higgins MD [facility] [place] [address] Scheduled Orders Name Type Priority Associated Diagnoses [...] to chronic blood loss COMPREHENSIVE METABOLIC PANEL Routine 02/06/2017 10:20 AM EDT Type 2 diabetes, controlled, with neuropathy Vitamin D deficiency Iron deficiency anemia due to chronic blood loss documented in this encounter Results * Differential, Automated (02/06/2017 10:20 AM EDT) Neutrophil % 58.1 % [facility] Neutrophil Absolute 5.66 1.70 - 6.10 x10(3)/[facility] Lymph % 33.1 % [facility] Lymphocytes Abs 3.2 0.9 - 3.2 x10(3)/[facility] Monocyte % 6.4 % [facility] Monocyte Abs 0.6 0.3 - 0.9 x10(3)/[facility] Eos % 1.5 % [facility] Eosinophils Abs 0.2 0.0 - 0.4 x10(3)/[facility] Basophil % 0.6 % [facility] Baso Absolute 0.1 0.0 - 0.1 x10(3)/[facility] Immature Gran % 0.30 % [facility] Comment: Immature granulocytes(IG's)percentage and absolute count will include metamyelocytes, myelocytes, and promyelocytes. Blood smears from CBCs yielding IG's will be scanned manually for concordance. If this scan disagrees with the automated IG or if promyelocytes are noted, a manual differential will be performed. Immature Gran Absolute 0.03 0.00 - 0.04 x10(3)/[facility] Blood specimen (specimen) 02/06/2017 10:20 AM EDT 02/06/2017 10:37 AM EDT Narrative Resulting Agency Comment Spec In Lab Judith Reinoso MD HEMATOLOGY ORDERA BLES [facility] [place] [address] * (ABNORMAL) Hemogram (02/06/2017 10:20 AM EDT) White Blood Cell 9.7(H) 4.0 - 9.5 x10(3)/[facility] Red Blood Cell 4.77 4.00 - 5.21 x10(6)/[facility] Hemoglobin 13.1 11.7 - 15.5 gm/dL [facility] Hematocrit 40.6 35.7 - 45.8 % [facility] Mean Cell Volume 85.1 82.6 - 94.4 fL [facility] Mean Cell Hemoglobin 27.5 27.1 - 32.0 pg [facility] Mean Cell Hemoglobin Concentration 32.3 31.7 - 35.0 gm/dL [facility] Platelet 251 145 - 357 x10(3)/[facility] RDW Standard Deviation 42.3 37.0 - 46.0 fL [facility] RDW coefficient of variation 13.4 11.5 - 14.1 % [facility] Mean Platelet Volume 11.4 7.6 - 12.9 fL [facility] NRBC% auto 0.0 % [facility] NRBC Absolute 0.000 0.000 - 0.000 x10(3)/mc L [facility] Blood specimen (specimen) 02/06/2017 10:20 AM EDT 02/06/2017 10:37 AM EDT Narrative Resulting Agency Comment Spec In Lab Judith Reinoso MD HEMATOLOGY GEETHAA ADRIANNAS [facility] [place] [address] * Testosterone, total (02/06/2017 10:20 AM EDT) Testosterone 0.26 0.06 - 0.82 ng/mL [facility] Comment: Reference Ranges: ? Males (7to18 [...] adult reference ranges derived from review of [employer] E170 Testosterone reagent package insert 08/27, V8 Stated pediatric reference ranges derived from review of [employer] E170 Testosterone II reagent package insert 05/01, V2. Blood specimen (specimen) 02/06/2017 10:20 AM EDT 02/06/2017 10:37 AM EDT Narrative Resulting Agency Comment Spec In Lab Judith Reinoso MD CHEMISTRY ORDERAB LES Performing Organization Address [facility] Co de Phone Number [facility] [place] [address] * DHEA-sulfate (02/06/2017 10:20 AM EDT) Dehydroepiandrosterone Sulfate 119.1 35.4 - 256.0 mcg/dL [facility] Blood specimen (specimen) 02/06/2017 10:20 AM EDT 02/06/2017 10:37 AM EDT Narrative Resulting Agency Comment Spec In Lab Judith Reinoso MD CHEMISTRY ORDERAB LES Performing Organization Address [facility] Co de Phone Number [facility] [place] [address] * (ABNORMAL) Comprehensive metabolic panel (non-fasting) (02/06/2017 10:20 AM EDT) Glucose 134 65 - 199 mg/dL [facility] Comment:Diabetes: >=200 mg/d L plus symptoms Blood Urea Nitrogen 14 8 - 18 mg/dL [facility] Creatinine 0.48(L) 0.70 - 1.20 mg/dL [facility] Comment: Please note that the pediatric reference intervals supplied above were not validated at [facility]. Results from pediatric patients should be interpreted in conjunction to the patient's age, height and muscle mass. Sodium 144 135 - 145 mmol/L [facility] Potassium 4.0 3.5 - 5.0 mmol/L [facility] Comment: Please note: ??Patients with WBC >100,000 may have falsely elevated Potassium levels. ??For accurate Potassium quantification in these patients send serum separator tube (gold top) for subsequent determinations. ??Contact the Clinical Chemistry Laboratory if there are any questions. Chloride 105 98 - 107 mmol/L [facility] Carbon Dioxide 27 22 - 31 mmol/L [facility] Anion Gap 12 5 - 15 mmol/L [facility] Calcium 9.1 8.5 - 10.5 mg/dL [facility] Protein, Total 7.5 6.1 - 8.0 gm/dL [facility] Albumin 3.7 3.2 - 5.2 gm/dL [facility] Aspartate Aminotransferase 12 0 - 30 unit/L [facility] Alanine Aminotransferase 14 0 - 30 unit/L [facility] Alkaline Phosphatase 105(H) 40 - 104 unit/L [facility] Bilirubin, Total 0.4 0.2 - 1.3 mg/dL [facility] Bilirubin, Direct 0.1 0.0 - 0.3 mg/dL [facility] Est Glomerular Filtration Rate >60 >=60 [facility] Comment: This estimated GFR [...] the following links into your internet browser. [email or web address]/DHnkdep [email or web address] Blood specimen (specimen) 02/06/2017 10:20 AM EDT 02/06/2017 10:37 AM EDT Narrative Resulting Agency Comment Spec In Lab Judith Reinoso MD CHEMISTRY ORDERAB LES Performing Organization Address [facility]/ZIP Co de Phone Number [facility] [place] [address] * (ABNORMAL) Iron and TIBC (02/06/2017 10:20 AM EDT) Iron 62 30 - 150 mcg/dL [facility] TIBC 323 250 - 450 mcg/dL [facility] Iron Saturation 19(L) 20 - 50 % [facility] Blood specimen (specimen) 02/06/2017 10:20 AM EDT 02/06/2017 10:37 AM EDT Narrative Resulting Agency Comment Spec In Lab Judith Reinoso MD CHEMISTRY ORDERAB LES Performing Organization Address [facility]/ZIP Co de Phone Number [facility] [place] [address] * Vitamin B12 (02/06/2017 10:20 AM EDT) Vitamin B12 448 207 - 974 pg/mL [facility] Blood specimen (specimen) 02/06/2017 10:20 AM EDT 02/06/2017 10:37 AM EDT Narrative Resulting Agency Comment Spec In Lab Judith Reinoso MD CHEMISTRY ORDERAB LES Performing Organization Address City/[facility]/ZIP Co de Phone Number [facility] [place] [address] * TSH (02/06/2017 10:20 AM EDT) Thyroid Stimulating Hormone 1.29 0.27 - 4.20 mcIU/mL [facility] Blood specimen (specimen) 02/06/2017 10:20 AM EDT 02/06/2017 10:37 AM EDT Narrative Resulting Agency Comment Spec In Lab Judith Reinoso MD CHEMISTRY ORDERAB LES Performing Organization Address City/[facility]/ZIP Co de Phone Number [facility] [place] [address] * (ABNORMAL) Vitamin D, 25-Hydroxy (02/06/2017 10:20 AM EDT) Vitamin D Total 25 OH 27(L) 30 - 100 ng/mL [facility] Comment: Deficient <10 ng/mL Insufficient 10 to 29 ng/mL Sufficient 30 to 100 ng/mL Potential Intoxication >100 ng/mL According to the [place] National Osteoporosis Foundation, Vitamin D concentrations >30 ng/mL are sufficient to protect bone health. ??The National Kidney Foundation has similarly stated that patients with Vitamin D concentrations <30ng/mL should be considered to be insufficient or deficient. http://Woozworld/[facility] TULSAnatlkidneyfoundation http://Woozworld/DHMCVitD The [employer] i[employer] Vitamin D Immunoassay detects both 25-OH Vitamin D2 and 25-OH Vitamin D3, but only a total Vitamin D concentration is reported. Blood specimen (specimen) 02/06/2017 10:20 AM EDT 02/06/2017 1:48 PM EDT Narrative Resulting Agency Comment Spec In Lab Judith Reinoso MD CHEMISTRY ORDERAB LES Performing Organization Address City/[facility]/ZIP Co de Phone Number [facility] [place] [address] * LDL Cholesterol, Direct (02/06/2017 10:20 AM EDT) LDL Cholesterol, Direct 125 <=190 mg/dL [facility] Blood specimen (specimen) 02/06/2017 10:20 AM EDT 02/06/2017 10:37 AM EDT Narrative Resulting Agency Comment Spec In Lab Judith Reinoso MD CHEMISTRY ORDERAB LES [facility] [place] [address] * (ABNORMAL) Hemoglobin A1c (02/06/2017 10:20 AM EDT) Hemoglobin A1c 7.6(H) 4.3 - 5.6 % [facility] [...] Mellitus, Diabetes Care 2013; 36: Suppl. 1, S67-01 Estimated Average Glucose 171 mg/dL [facility] Comment: eAG [...] resources are available on the ADA website: http://Cleversafe.com/DHMCadacalc Maurice GODINEZ, Marion J, Miriam R, et al. ??Translating the A1C assay into estimated average glucose values. ??Diabetes Care 2008:31(8):3170-1780. Blood specimen (specimen) 02/06/2017 10:20 AM EDT 02/06/2017 10:37 AM EDT Narrative Resulting Agency Comment Spec In Lab Judith Reinoso MD CHEMISTRY ORDERAB LES [facility] [place] [address] documented in this encounter Visit Diagnoses Diagnosis Type 2 diabetes, controlled, with neuropathy Type II or unspecified type diabetes mellitus with neurological manifestations, not stated as uncontrolled Vitamin D deficiency Unspecified vitamin D deficiency Iron deficiency anemia due to chronic blood loss Iron deficiency anemia secondary to blood loss (chronic) documented in this encounter Care Teams Fbi Sharpshooter Relationship Specialty Start Date End Date Nanda Read MD [facility] [address] [place] [address] PCP - General 09/14/10 06/06/18 documented as of this encounter
--- OUTSIDE RECORDS SUMMARY | 2024-09-18 16:13 | XMS_ITS | Encounter Summary ---
[place] [address] Care Team Providers Care Manager Subway Name Role Phone Nanda Read MD Primary Care Provider [phone] Encounter Details Date Type Department Care Team (Late st Contact Info) Description 06/19/2017 4:30 PM EDT Office [place] [address] Wyatt Higgins MD [facility] [place] [address] Yancy Pennington DO [facility] [place] [address] Polyneuropathy, peripheral sensorimotor axonal Social History Tobacco [...] Victor. Yancy Pennington, DO Clinical Neurophysiology Fellow #[id number] I did not personally see this patient [...] AM EDT TH Visit (TeleHealth) [place] [address] Wyatt Higgins MD [facility] [place] [address] documented as of this encounter Results * Protein Electrophoresis, serum (06/19/2017 5:55 PM EDT) Total Prot Electrophoresis 6.8 6.1 - 8.0 gm/dL [facility] Albumin Electrophoresis 4.20 3.60 - 6.00 gm/dL [facility] Alpha 1 Globulin 0.18 0.10 - 0.30 gm/dL [facility] Alpha 2 Globulin 0.73 0.40 - 0.90 gm/dL [facility] Beta Globulin 0.81 0.50 - 1.00 gm/dL [facility] Gamma Globulin 0.88 0.50 - 1.30 gm/dL [facility] M1 Band Comments Below [facility] SPEP Comments See Note [facility] Comment: Immunofixation (GHASSAN) and quantitative immunoglobulin (SARAH) testing will be performed on this sample per MD request. Blood specimen (specimen) 06/19/2017 5:55 PM EDT 06/19/2017 6:06 PM EDT Narrative Resulting Agency Comment Spec In Lab Robert Victor MD CHEMISTRY ORDERAB LES Performing Organization Address [facility] Co de Phone Number [facility] [place] [address] * Miscellaneous Lab request (06/19/2017 5:55 PM EDT) Label Request received in lab. 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
--- OUTSIDE RECORDS SUMMARY | 2024-09-18 16:13 | XMS_ITS | Encounter Summary ---
Author Organization [facility] Carlos [place] [address] Care Team Providers Care Flask Fitter Name Role Phone Nanda Read MD Primary Care Provider [phone] Encounter Details Date Type Department Care Team (Late st Contact Info) Description 02/05/2016 Telephone [place] [address] Nany Tai, RD [facility] [place] [address] Social History Tobacco Use Types Packs/Day Years [...] AM EDT TH Visit (TeleHealth[place] [address] Wyatt Higgins MD [facility] [place] [address] documented as of this encounter Visit Diagnoses Not on filedocumented in this encounter Care Teams Flask Fitter Relationship Specialty Start Date End Date Nanda Read MD [facility] [address] [place] [address] PCP - General 09/14/10 06/06/18 documented as of this encounter
--- OUTSIDE RECORDS SUMMARY | 2024-09-18 16:13 | XMS_ITS | Encounter Summary ---
Author Organization [facility] [place] [address] Care Team Providers Care Sales Account Manager Name Role Phone MunozRuth jerome Lilibeth JUAREZ Primary Care Provider + Reason for Visit * Reason Comments Medication Refill Encounter Details Date Type Department Care Team (Late st Contact Info) Description 03/29/2017 Refill [place] [phone] Cathy Dillon APRN [facility] [place] [address] Social History Tobacco Use Types Packs/Day Years [...] AM EDT TH Visit (TeleHealth) [place] [address] Wyatt Higgins MD [facility] [place] [address] documented as of this encounter Visit Diagnoses Not on filedocumented in this encounter Care Teams Sales Account Manager Relationship Specialty Start Date End Date Ruth Munoz APRN [address] [place] [address] PCP - General Family Medicine 02/05/19 documented as of this encounter
--- OUTSIDE RECORDS SUMMARY | 2024-09-18 16:13 | XMS_ITS | Encounter Summary ---
[place] [address] Care Team Providers Care Specialist Wound Care Name Role Phone Nanda Read MD Primary Care Provider [phone] Encounter Details Date Type Department Care Team (Late st Contact Info) Description 02/01/2016 Telephone [place] [phone] Rosey Hastings Social History Tobacco Use Types [...] AM EDT TH Visit (TeleHealth) [place] [address] Wyatt Higgins MD [facility] [place] [address] documented as of this encounter Visit Diagnoses Not on filedocumented in this encounter Care Teams Specialist Wound Care Relationship Specialty Start Date End Date Nanda Read MD [facility] [address] [place] [address] PCP - General 09/14/10 06/06/18 documented as of this encounter
--- OUTSIDE RECORDS SUMMARY | 2024-09-18 16:13 | XMS_ITS | Encounter Summary ---
Author Organization [facility] [place] [address] Care Team Providers Care Nremt Name Role Phone Nanda Read MD Primary Care Provider Reason for Visit * Consultation (Routine) - Closed Specialty Diagnoses / Procedures Referred By Patricio monsivais Referred To Contact Neurology Diagnoses agressive lower extremity neuropathy, now experiencing symtoms in her upper extremities (numbness and tingling) Nanda Read MD [facility] [address] [place] [address] [facility] [address] [place] [id number] Referral ID Status Reason Start Date Expiration Date Visits Re quested Visits Authorized [id number] Closed 03/21/2017 03/21/2018 1 1 Encounter Details Date Type Department Care Team (Late st Contact Info) Description 06/05/2017 10:30 AM EDT Procedure [place] [phone] Robert Victor MD [facility] [place] [address] Yancy Pennington, [facility] [place] [address] Polyneuropathy Social History Tobacco Use Types Packs/Day [...] this encounter Procedure Notes * Yancy Pennington, - 06/05/2017 10:30 AM EDTProcedure(s): EMG; PRG NERVE [...] alongside Dr. Kayleigh Pennington, Clinical Neurophysiology Fellow #[id number] CC: Nanda Read MD I saw and [...] AM EDT TH Visit (TeleHealth) [place] [address] Wyatt Higgins MD [facility] [place] [address] documented as of this encounter Visit Diagnoses Diagnosis Polyneuropathy Unspecified hereditary and idiopathic peripheral neuropathy documented in this encounter Care Teams Nremt Relationship Specialty Start Date End Date Nanda Read MD [facility] [address] [place] [address] PCP - General 09/14/10 06/06/18 documented as of this encounter
--- OUTSIDE RECORDS SUMMARY | 2024-09-18 16:13 | XMS_ITS | Encounter Summary ---
Author Organization [facility] [place] [address] Care Team Providers Care Wheel Presser Name Role Phone MunozRuth jerome Lilibeth JUAREZ Primary Care Provider + Reason for Visit * Reason Comments Medication Refill Encounter Details Date Type Department Care Team (Late st Contact Info) Description 04/07/2017 Refill [place] [phone] Cathy Dillon APRN [facility] [place] [address] Social History Tobacco Use Types Packs/Day Years [...] AM EDT TH Visit (TeleHealth) [place] [address] Wyatt Higgins MD [facility] [place] [address] documented as of this encounter Visit Diagnoses Not on filedocumented in this encounter Care Teams Wheel Presser Relationship Specialty Start Date End Date Ruth Munoz APRN [address] [place] [address] PCP - General Family Medicine 02/05/19 documented as of this encounter
--- OUTSIDE RECORDS SUMMARY | 2024-09-18 16:13 | XMS_ITS | Encounter Summary ---
Author Organization [facility] [address] Care Team Providers Care Patient Access Associate Name Role Phone MunozRuth jerome Lilibeth JUAREZ Primary Care Provider + Reason for Visit * Reason Comments Medication Refill Encounter Details Date Type Department Care Team (Late st Contact Info) Description 01/31/2017 [place] [phone] Cathy Dillon APRN [facility] [place] [address] Social History Tobacco Use Types Packs/Day Years [...] AM EDT TH Visit (TeleHealth) [place] [phone] Wyatt Higgins MD [facility] [place] [address] documented as of this encounter Visit Diagnoses Not on filedocumented in this encounter Care Teams Patient Access Associate Relationship Specialty Start Date End Date Ruth Munoz APRN [address] [place] [address] PCP - General Family Medicine 02/05/19 documented as of this encounter
--- OUTSIDE RECORDS SUMMARY | 2024-09-18 16:13 | XMS_ITS | Encounter Summary ---
Author Organization [facility] [place] [address] Care Team Providers Care Chief Operator Synthesis Name Role Phone Nanda Read MD Primary Care Provider Reason for Visit * Reason Comments Follow Up Surgery Encounter Details Date Type Department Care Team (Late st Contact Info) Description 03/09/2016 10:40 AM EDT Office [place] [address] Jose Mai MD [facility] [place] [address] Postoperative visit Social History Tobacco Use Types [...] First Post-operative Follow up visit Contact information: [facility] Admin coordinator Rosey: [phone] Dietitian: [phone] Surgeons/ nurse practitioner: [phone] Nurse line: [phone] Your excess body weight lost: 26.1% Next [...] of every month from 1-2 PM at [facility] Internet resources: Www.OneClass www.Daptiv Www.Bango Www.Choosemyplate.gov Www.CortexPal.com [facility] facebook page: https://www.facebook.[email or web address]/[facility]ABariatricSurgery Bariatric surgery apps- [facility] Post-lexy Books: - Recipes for Life after [...] AM EDT TH Visit (TeleHealth) [place] [address] Wyatt Higgins MD [facility] [place] [address] documented as of this encounter Visit Diagnoses Diagnosis Postoperative visit documented in this encounter Care Teams Chief Operator Synthesis Relationship Specialty Start Date End Date Nanda Read MD [facility] [address] [facility] [address] [place] [address] PCP - General 09/14/10 06/06/18 documented as of this encounter
--- OUTSIDE RECORDS SUMMARY | 2024-09-18 16:13 | XMS_ITS | Encounter Summary ---
Author Organization [facility] [place] [address] Care Team Providers Care Forensic Economist Name Role Phone Nanda Read MD Primary Care Provider Reason for Visit * Reason Comments Medication Refill Encounter Details Date Type Department Care Team (Late st Contact Info) Description 04/18/2017 Refill [place] [address] Judith Reinoso MD [facility] [place] [address] Social History Tobacco Use Types Packs/Day Years [...] AM EDT TH Visit (TeleHealth[place] [address] Wyatt Higgins MD [facility] [place] [address] documented as of this encounter Visit Diagnoses Not on filedocumented in this encounter Care Teams Forensic Economist Relationship Specialty Start Date End Date Nanda Read MD [facility] [address] [place] [address] PCP - General 09/14/10 06/06/18 documented as of this encounter
--- OUTSIDE RECORDS SUMMARY | 2024-09-18 16:13 | XMS_ITS | Encounter Summary ---
[place] [address] Care Team Providers Care Pre Fabricator Name Role Phone Nanda Read MD Primary Care Provider [phone] Encounter Details Date Type Department Care Team (Latest Contact Info) Description 07/05/2016 1:50 PM EDT Laboratory [place] [address] Type 2 diabetes, uncontrolled, with [...] AM EDT TH Visit (TeleHealth) [place] [address] Wyatt Higgins MD [facility] [place] [place] [address] documented as of this encounter Procedures Procedure [...] iron deficiency anemia type COMPREHENSIVE METABOLIC PANEL Routine 07/05/2016 2:18 PM EDT Status post bariatric surgery Intestinal malabsorption, unspecified type documented in this encounter Results * Microalbumin, urine, random (07/05/2016 2:21 PM EDT) Albumin / Creatinin Ratio, Urine 7 0 - 29 mcg/mg Cr WHITE [...] Supplements (2012) 2, 357? 362 Albumin, Urine 3.7 mg/L [facility] Creatinine, Urine 54 mg/dL [facility] Urine specimen (specimen) 07/05/2016 2:21 PM EDT 07/05/2016 3:12 PM EDT Narrative Resulting Agency Comment Spec In Lab Judith Reinoso MD URINE ORDERABLES [facility] [place] [address] * Folate, serum (07/05/2016 2:18 PM EDT) Folate 18.6 4.8 - 24.2 ng/mL [facility] Blood specimen (specimen) 07/05/2016 2:18 PM EDT 07/05/2016 3:00 PM EDT Narrative Resulting Agency Comment Spec In Lab Jose Mai MD CHEMISTRY ORDERABLE S Performing Organization Address [facility] Co de Phone Number [facility] [place] [address] * (ABNORMAL) Vitamin B1, whole blood (07/05/2016 2:18 PM EDT) Vit B1 Lvl Wb (FEBRUARY) 213(H) 70 - 180 nmol/L [facility] Comment: INTERPRETIVE INFORMATION: Vitamin B1, Whole Blood This assay measures the concentration of thiamine diphosphate (TDP), the primary active form of vitamin B1. Approximately 90 percent of vitamin B1 present in whole blood is TDP. Thiamine and thiamine monophosphate, which comprise the remaining 10 percent, are not measured. Test developed and characteristics determined by [facility]. See Compliance Statement B: [employer]/CS Test Performed by: [facility] [address] [place] [address] Blood specimen (specimen) 07/05/2016 2:18 PM EDT 07/05/2016 3:18 PM EDT Narrative Resulting Agency Comment Spec In Lab Jose Mai MD LAB SEND OUT ORDERA BLES Performing Organization Address [facility] Co de Phone Number [facility] [place] [address] * Ferritin (07/05/2016 2:18 PM EDT) Ferritin 54 30 - 400 ng/mL [facility] Comment: Pediatric reference ranges not verified at [facility], interpret with caution. Reference ranges for females greater than 50 years of age approach values for men, i.e., 30-400 ng/mL. Blood specimen (specimen) 07/05/2016 2:18 PM EDT 07/05/2016 3:00 PM EDT Narrative Resulting Agency Comment Spec In Lab Jose Mai MD CHEMISTRY ORDERABLE S Performing Organization Address City/[facility]/ZIP Co de Phone Number [facility] [place] [address] * Prealbumin (07/05/2016 2:18 PM EDT) Pathologist [facility] Prealbumin 23 20 - 40 mg/dL [facility] Comment: Prealbumin levels are generally lower in the pediatric population; adult concentrations are usually attained near puberty. Blood specimen (specimen) 07/05/2016 2:18 PM EDT 07/05/2016 3:00 PM EDT Narrative Resulting Agency Comment Spec In Lab Jose Mai MD CHEMISTRY ORDERABLE S Performing Organization Address [facility] Co de Phone Number [facility] [place] [address] * (ABNORMAL) Comprehensive metabolic panel (non-fasting) (07/05/2016 2:18 PM EDT) [facility] Glucose 117 65 - 199 mg/dL [facility] Comment:Diabetes: >=200 mg/d L plus symptoms Blood Urea Nitrogen 9 8 - 18 mg/dL [facility] Creatinine 0.55(L) 0.70 - 1.20 mg/dL [facility] Comment: Please note that the pediatric reference intervals supplied above were not validated at [facility]. Results from pediatric patients should be interpreted in conjunction to the patient's age, height and muscle mass. Sodium 143 135 - 145 mmol/L [facility] Potassium 4.1 3.5 - 5.0 mmol/L [facility] Comment: Please note: ??Patients with WBC >100,000 may have falsely elevated Potassium levels. ??For accurate Potassium quantification in these patients send serum separator tube (gold top) for subsequent determinations. ??Contact the Clinical Chemistry Laboratory if there are any questions. Chloride 101 98 - 107 mmol/L [facility] Carbon Dioxide 25 22 - 31 mmol/L [facility] Anion Gap 17(H) 5 - 15 mmol/L [facility] Calcium 9.3 8.5 - 10.5 mg/dL [facility] Protein, Total 7.6 6.1 - 8.0 gm/dL [facility] Albumin 3.8 3.2 - 5.2 gm/dL [facility] Aspartate Aminotransferase 18 0 - 30 unit/L [facility] Alanine Aminotransferase 18 0 - 30 unit/L [facility] Alkaline Phosphatase 105(H) 40 - 104 unit/L [facility] Bilirubin, Total 0.3 0.2 - 1.3 mg/dL [facility] Bilirubin, Direct 0.1 0.0 - 0.3 mg/dL [facility] Est Glomerular Filtration Rate >60 >=60 [facility] Comment: This estimated GFR [...] the following links into your internet browser. [email or web address] [email or web address] Blood specimen (specimen) 07/05/2016 2:18 PM EDT 07/05/2016 3:00 PM EDT Narrative Resulting Agency Comment Spec In Lab Jose Mai MD CHEMISTRY ORDERABLE S [facility] [place] [address] * (ABNORMAL) Hemogram (07/05/2016 2:18 PM EDT) White Blood Cell 12.0(H) 4.0 - 9.5 x10(3)/mc L [facility] Red Blood Cell 5.17 4.00 - 5.21 x10(6)/mc L [facility] Hemoglobin 14.0 11.7 - 15.5 gm/dL [facility] Hematocrit 43.5 35.7 - 45.8 % [facility] Mean Cell Volume 84.1 82.6 - 94.4 fL [facility] Mean Cell Hemoglobin 27.1 27.1 - 32.0 pg [facility] Mean Cell Hemoglobin Concentration 32.2 31.7 - 35.0 gm/dL [facility] Platelet 250 145 - 357 x10(3)/mc L [facility] RDW Standard Deviation 42.2 37.0 - 46.0 fL [facility] RDW coefficient of variation 13.6 11.5 - 14.1 % [facility] Mean Platelet Volume 12.5 7.6 - 12.9 fL [facility] NRBC% auto 0.0 % [facility] NRBC Absolute 0.000 0.000 - 0.000 x10(3)/mc L [facility] Blood specimen (specimen) 07/05/2016 2:18 PM EDT 07/05/2016 3:00 PM EDT Narrative Resulting Agency Comment Spec In Lab Jose Mai MD HEMATOLOGY ORDERABL ES Performing Organization Address City/State/[facility] Co de Phone Number [facility] [place] [address] * C-peptide (07/05/2016 2:18 PM EDT) C-Peptide 4.2 1.1 - 4.4 ng/mL [facility] Comment: Test Performed by: [facility] [place] [address] Distribution Agent: Jose Sansd II, M.D., Ph.D. Blood specimen (specimen) 07/05/2016 2:18 PM EDT 07/06/2016 8:49 AM EDT Narrative Resulting Agency Comment Spec In Lab Judith Reinoso MD CHEMISTRY ORDERAB LES Performing Organization Address City/[facility]/ZIP Co de Phone Number [facility] [place] [address] * PTH (07/05/2016 2:18 PM EDT) Parathyroid Hormone 56 15 - 65 pg/mL [facility] Blood specimen (specimen) 07/05/2016 2:18 PM EDT 07/05/2016 3:00 PM EDT Narrative Resulting Agency Comment Spec In Lab Judith Reinoso MD CHEMISTRY ORDERAB LES Performing Organization Address [facility]/ZIP Co de Phone Number [facility] [place] [address] * (ABNORMAL) Iron and TIBC (07/05/2016 2:18 PM EDT) Pathologist [facility] Iron 57 30 - 150 mcg/dL [facility] TIBC 298 250 - 450 mcg/dL [facility] Iron Saturation 19(L) 20 - 50 % [facility] Blood specimen (specimen) 07/05/2016 2:18 PM EDT 07/05/2016 3:00 PM EDT Narrative Resulting Agency Comment Spec In Lab Judith Reinoso MD CHEMISTRY ORDERAB LES Performing Organization Address [facility]/ZIP Co de Phone Number [facility] [place] [address] * VIT D Total Evaluation (07/05/2016 2:18 PM EDT) Vitamin D Total 25 OH 32 30 - 100 ng/mL [facility] [...] be considered to be insufficient or deficient. http://[employer]..com/[facility] TULSAnatlkidneyfoundation http://[employer]CytomX Therapeutics/DHMCVitD The IDS iSYS Vitamin D Immunoassay detects both 25-OH Vitamin D2 and 25-OH Vitamin D3, but only a total Vitamin D concentration is reported. Blood specimen (specimen) 07/05/2016 2:18 PM EDT 07/05/2016 3:00 PM EDT Narrative Resulting Agency Comment Spec In Lab Judith Reinoso MD CHEMISTRY ORDERAB LES Performing Organization Address City/[facility]/ZIP Co de Phone Number [facility] [place] [address] * Vitamin B12 (07/05/2016 2:18 PM EDT) Vitamin B12 416 207 - 974 pg/mL [facility] Blood specimen (specimen) 07/05/2016 2:18 PM EDT 07/05/2016 3:00 PM EDT Narrative Resulting Agency Comment Spec In Lab Judith Reinoso MD CHEMISTRY ORDERAB LES Performing Organization Address City/[facility]/ZIP Co de Phone Number [facility] [place] [address] * (ABNORMAL) Hemoglobin A1c (07/05/2016 2:18 PM EDT) Hemoglobin A1c 7.4(H) 4.3 - 5.6 % [facility] [...] Mellitus, Diabetes Care 2013; 36: Suppl. 1, Q82-35 Estimated Average Glucose 166 mg/dL [facility] [...] resources are available on the ADA website: http://[employer]CytomX Therapeutics/DHMCadacalc Maurice GODINEZ, Marion Charlton, Miriam R, et al. ??Translating the A1C assay into estimated average glucose values. ??Diabetes Care 2008:31(8):3940-9111. Blood specimen (specimen) 07/05/2016 2:18 PM EDT 07/05/2016 3:00 PM EDT Narrative Resulting Agency Comment Spec In Lab Judith Reinoso MD CHEMISTRY ORDERAB LES Performing Organization Address City/State/[facility] Co de Phone Number [facility] [place] [address] documented in this encounter Visit Diagnoses Diagnosis [...] type documented in this encounter Care Teams Pre Fabricator Relationship Specialty Start Date End Date Nanda Read MD [facility] [address] [place] [address] PCP - General 09/14/10 06/06/18 documented as of this encounter
--- OUTSIDE RECORDS SUMMARY | 2024-09-18 16:13 | XMS_ITS | Encounter Summary ---
Author [facility] [place] [address] Care Team Providers Care Reheater Name Role Phone Nanda Read MD Primary Care Provider Reason for Visit * Reason Onset Date Comments Follow-up 02/03/2016 Encounter Details Date Type Department Care Team (Late st Contact Info) Description 02/03/2016 Telephone [place] [address] Cathy Dillon, [facility] [place] [address] Follow-up Social History Tobacco Use Types Packs/Day [...] EDT TH Visit (TeleHealth) [place] [address] Wyatt Higgins MD [facility] [place] [address] documented as of this encounter Visit Diagnoses Not on filedocumented in this encounter Care Teams Reheater Relationship Specialty Start Date End Date Nanda Read MD [facility] [address] [place] [address] PCP - General 09/14/10 06/06/18 documented as of this encounter
--- OUTSIDE RECORDS SUMMARY | 2024-09-18 16:13 | XMS_ITS | Encounter Summary ---
Author Organization [facility] [place] [address] Care Team Providers Care Plug Stitcher Name Role Phone Nanda Read MD Primary Care Provider Reason for Visit * Reason Comments Follow-up pt has questions jeremiah or to surgerystephon dos 06/29/17 Encounter Details Date Type Department Care Team (Late st Contact Info) Description 06/19/2017 3:45 PM EDT Office Visit [place] [address] Chetan Lund MD [facility] [place] [address] Abdominal pannus Social History Tobacco Use Types [...] AM EDT TH Visit (TeleHealth) [place] [address] Wyatt Higgins MD [facility] [place] [address] documented as of this encounter Visit Diagnoses Diagnosis Abdominal pannus Localized adiposity documented in this encounter Care Teams Plug Stitcher Relationship Specialty Start Date End Date Nanda Read MD [facility] [address] [place] [address] PCP - General 09/14/10 06/06/18 documented as of this encounter
--- OUTSIDE RECORDS SUMMARY | 2024-09-18 16:13 | XMS_ITS | Encounter Summary ---
Author Organization [facility] [place] [address] Care Team Providers Care Farm Service Adviser Name Role Phone MunozRuth jerome Lilibeth JUAREZ Primary Care Provider + Reason for Visit * Reason Comments Medication Refill Encounter Details Date Type Department Care Team (Late st Contact Info) Description 03/13/2017 Ref[place] [address] Cathy Dillon APRN [facility] [place] [place] [address] Social History Tobacco Use Types Packs/Day Years [...] AM EDT TH Visit (TeleHealth) [place] [address] Wyatt Higgins MD [facility] [place] [address] documented as of this encounter Visit Diagnoses Not on filedocumented in this encounter Care Teams Farm Service Adviser Relationship Specialty Start Date End Date Ruth Munoz APRN [address] [place] [address] PCP - General Family Medicine 02/05/19 documented as of this encounter
--- OUTSIDE RECORDS SUMMARY | 2024-09-18 16:13 | XMS_ITS | Encounter Summary ---
Author Organization [facility] [place] [address] Care Team Providers Care Produce Shipper Name Role Phone Nanda Read MD Primary Care Provider [phone] Encounter Details Date Type Department Care Team (Late st Contact Info) Description 02/02/2017 External Results [place] [address] Judith Reinoso MD [facility] [place] [address] Type 2 diabetes, controlled, with neuropathy Social [...] AM EDT TH Visit (TeleHealth) [place] [address] Wyatt Higgins MD [facility] [place] [address] documented as of this encounter Procedures Procedure Name Priority Date/Time Associated Diagnosis Comments U ALBUMIN/CRE RATIO STAT 01/30/2017 Type 2 diabetes, controlled, with neuropathy HEMOGLOBIN A1C Routine 01/30/2017 Type 2 diabetes, controlled, with neuropathy BASIC METABOLIC PANEL Routine 01/30/2017 Type 2 diabetes, controlled, with neuropathy documented in this encounter Results * (ABNORMAL) Hemoglobin A1c (01/30/2017) Hemoglobin A1c 8.1(ENVELOPE MACHINE ADJUSTER AL/ABN) Blood specimen (specimen) 01/30/2017 Judith Reinoso MD CHEMISTRY ORDERAB LES * U Albumin/Cre Ratio (01/30/2017) Urine specimen (specimen) 01/30/2017 Judith Reinoso MD URINE ORDERABLES * (ABNORMAL) Basic Metabolic Panel (non-fasting) (01/30/2017) Glucose 244(ENVELOPE MACHINE ADJUSTER AL/ABN) Blood Urea Nitrogen 9(External Lab) Creatinine 0.40(EXTER NAL/ABN) Sodium 141(Mutuel Teller al Lab) Potassium 4.2(Mutuel Teller al Lab) Chloride 104(Mutuel Teller al Lab) Cholesterol, Total 166(Mutuel Teller al Lab) Blood specimen (specimen) 01/30/2017 Judith Reinoso MD CHEMISTRY ORDERAB LES documented in this encounter Visit Diagnoses Diagnosis Type 2 diabetes, controlled, with neuropathy Type II or unspecified type diabetes mellitus with neurological manifestations, not stated as uncontrolled documented in this encounter Care Teams Produce Shipper Relationship Specialty Start Date End Date Nanda Read MD [facility] D [address] [place] [address] PCP - General 09/14/10 06/06/18 documented as of this encounter
--- OUTSIDE RECORDS SUMMARY | 2024-09-18 16:13 | XMS_ITS | Encounter Summary ---
Author Organization [facility] [place] [address] Care Team Providers Care Punchboard Stuffer Name Role Phone Nanda Read MD Primary Care Provider Encounter Details Date Type Department Care Team (Late st Contact Info) Description 02/12/2016 Telephone [place] [address] Nany Tai, RD [facility] [place] [place] [address] Social History Tobacco Use Types Packs/Day Years [...] AM EDT TH Visit (TeleHealth) [place] [address] Wyatt Higgins MD [facility] [place] [address] documented as of this encounter Visit Diagnoses Not on filedocumented in this encounter Care Teams Punchboard Stuffer Relationship Specialty Start Date End Date Nanda Read MD [facility] Gonzalez [address] [place] [address] PCP - General 09/14/10 06/06/18 documented as of this encounter
--- OUTSIDE RECORDS SUMMARY | 2024-09-18 16:13 | XMS_ITS | Encounter Summary ---
Author Organization [facility] [place] [address] Care Team Providers Care Petroleum Plant Operator Name Role Phone Nanda Read MD Primary Care Provider [phone] Reason for Visit * Reason Onset Date Comments Medication Refill 02/15/2016 Encounter Details Date Type Department Care Team (Late st Contact Info) Description 02/15/2016 Refill [place] [address] Judith Reinoso MD [facility] [place] [place] [address] Social History Tobacco Use Types Packs/Day Years [...] AM EDT TH Visit (TeleHealth) [place] [address] Wyatt Higgins MD [facility] [place] [address] documented as of this encounter Visit Diagnoses Not on filedocumented in this encounter Care Teams Petroleum Plant Operator Relationship Specialty Start Date End Date Nanda Read MD [facility] [address] [place] [address] PCP - General 09/14/10 06/06/18 documented as of this encounter
--- OUTSIDE RECORDS SUMMARY | 2024-09-18 16:13 | XMS_ITS | Encounter Summary ---
Author Organization [facility] [place] [address] Care Team Providers Care Refrigerated Company Driver Name Role Phone Nanda Read MD Primary Care Provider Reason for Visit * Reason Comments Medication Refill Encounter Details Date Type Department Care Team (Late st Contact Info) Description 06/28/2016 Refill [place] [address] Judith Reinoso MD [facility] [place] [address] Social History Tobacco Use Types Packs/Day Years [...] AM EDT TH Visit (TeleHealth) [place] [address] Wyatt Higgins MD [facility] [place] [address] documented as of this encounter Visit Diagnoses Not on filedocumented in this encounter Care Teams Refrigerated Company Driver Relationship Specialty Start Date End Date Nanda Read MD [facility] [address] [place] [address] PCP - General 09/14/10 06/06/18 documented as of this encounter
--- OUTSIDE RECORDS SUMMARY | 2024-09-18 16:13 | XMS_ITS | Encounter Summary ---
Author Organization [facility] [place] [address] Care Team Providers Care Distance Education Faculty Liaison Name Role Phone Nanda Read MD Primary Care Provider [phone] Encounter Details Date Type Department Care Team (Late st Contact Info) Description 02/01/2016 Telephone [place] [address] Nany Tai, RD [facility] [place] [address] Social History Tobacco Use Types Packs/Day Years [...] on her couch than be admitted to [facility] again. Reports her urine is like a [...] TH Visit (TeleHealth) [place] [address] Wyatt Higgins MD [facility] [place] [address] documented as of this encounter Visit Diagnoses Not on filedocumented in this encounter Care Teams Distance Education Faculty Liaison Relationship Specialty Start Date End Date Nanda Read MD [facility] D [address] [place] [address] PCP - General 09/14/10 06/06/18 documented as of this encounter
--- OUTSIDE RECORDS SUMMARY | 2024-09-18 16:13 | XMS_ITS | Encounter Summary ---
Author Organization [facility] [place] [address] Care Team Providers Care Jewish History Professor Name Role Phone Nanda Read MD Primary Care Provider [phone] Reason for Referral * Consultation (Routine) - Closed Specialty Diagnoses / Procedures Referred By Patricio monsivais Referred To Contact Plastic Surgery Diagnoses Candidal intertrigo Symptomatic abdominal panniculus Cathy Dillon APRN [facility] [address] Abril Machado MD [facility] [place] [address] Referral ID Status Reason Start Date Expiration Date V isits Requested Visits Authorized [id number] Closed Consult, Test & Treat 04/06/2017 04/06/2018 1 1 Reason for Visit * Reason Comments Follow-up Bariatric Surgery Pr ogram post-surgery follow up Encounter Details Date Type Department Care Team (Late st Contact Info) Description 04/06/2017 10:00 AM EDT Office Visit General Surgery at [place] [phone] Cathy Dillon APRN [facility] GENER[facility] SUR[facility]ERY [place] [id number] Symptomatic abdominal panniculus; Candidal [...] Taylor Vance - 04/06/2017 10:00 AM EDT [facility] Admin coordinator Rosey: [phone] Dietitian: [phone] Surgeons/ nurse practitioner: [phone] Nurse line: [phone] Testing: Labwork: May- when you see the neurologist Go to [facility] Libr[facility] Area [address], which is 1 flight below [...] after surgery, and yearly thereafter. Please call [phone] if you do not receive an appointment [...] of every month from 1-2 PM at [facility]- no registration required Nutrition and Activity apps- Baritastic, My Fitness Pal, Lose It, My Plate Internet resources: www.Yuepu Sifang wwwSiva Therapeutics www.Ion Torrent www.Practo Technologies Pvt. Ltd.Digital Reasoning/blog [facility] facebook page: https://www.facebook.com/[facility] WOODWARDBariatricSurgery Books & Magazines: - Recipes for Life [...] Supplement Type Brand/Form Dosage/Amount Frequency Comments Multivitamin Dustin's chewable 1 daily Expensive and doesn't feel [...] summary: Early Prolonged hospital stay. Admitted to [facility] on 01/24/16 with nausea and vomiting, failure to progress diet. Transfer to [facility] on 01/25/16 Late none Visits summary: Compliance [...] QD. A1c was 7.6 on 02/06 at [facility], was 8.1 on 4/10 at [facility], up from 7.4 at prior check. Off U 500 insulin and extenatide post surgery - preoperative treatment: exenatide, glipizide, U 500 insulin BID, Invokana, metformin - Complications: retinopathy, peripheral autonomic neuropathy, sees cyber security systems engineer for calluses, declines flu shot ??? GERD [...] GI ENDOSCOPY performed by ALISA RICHARDS at [facility] END[facility] Allergies Allergen Reactions ??? Codeine [...] She has an upcoming neurology evaluation at [facility] for bilateral hand and arm tingling. Shereports [...] rashes, and applies medicated cream. She is [id number]% of the recommended multivitamin dose, and is [...] blood in stool [] chronic diarrhea/ constipation JEWELRY INSPECTOR: [] LMP: [] control [] menorrhagia [+] [...] labwork is done by the primary career based intervention coordinator: please send a copy to the Bariatric Surgery Program, General Surgery Clinic, [facility], attention Cathy Dillon APRN. Questions regarding [facility] Bariatric Surgery Program patients: please call Denny Dillon APRN at [phone] or [phone]. E-mail: [email or web address] documented in this encounter Plan of Treatment Upcoming Encounters Date Type Department Care Team (Late st Contact Info) Description 02/19/2025 9:00 AM EDT TH Visit (TeleHealth) [place] [address] Wyatt Higgins MD [facility] [place] [address] Scheduled Referrals Name Type Priority Associated Diagnoses Orde r Schedule Referral to Plastic Surgery Outpatient Referral Routine Candidal intertrigo Symptomatic abdominal panniculus Ordered: 04/06/2017 documented as of this encounter Results * Prealbumin (04/27/2017 11:12 AM EDT) Prealbumin 21 20 - 40 mg/dL [facility] Comment: Prealbumin levels are generally lower in the pediatric population; adult concentrations are usually attained near puberty. Blood specimen (specimen) 04/27/2017 11:12 AM EDT 04/27/2017 11:19 AM EDT Narrative Resulting Agency Comment Spec In Lab Cathy Dillon SILVER SPRAY WORKER CHEMISTRY ORDERAB LES Performing Organization Address City/[facility]/ZIP Co de Phone Number [facility] [place] [address] * Folate, serum (04/27/2017 11:12 AM EDT) Folate >20.0 4.8 - 24.2 ng/mL [facility] Blood specimen (specimen) 04/27/2017 11:12 AM EDT 04/27/2017 11:19 AM EDT Narrative Resulting Agency Comment Spec In Lab Cathy Dillon SILVER SPRAY WORKER CHEMISTRY ORDERAB LES Performing Organization Address City/[facility]/ZIP Co de Phone Number [facility] [place] [address] * (ABNORMAL) Vitamin B1, whole blood (04/27/2017 11:12 AM EDT) [facility] Vit B1 Lvl Wb (FEBRUARY) 182(H) 70 - 180 nmol/L [facility] Comment: ADDITIONAL INFORMATION This test was developed and its performance characteristics determined by [facility] in a manner consistent with CLIA requirements. This test has not been cleared or approved by the U.S. Food and Drug Administration. Test Performed by: [facility] [place] [address] Blood specimen (specimen) 04/27/2017 11:12 AM EDT 04/27/2017 11:25 AM EDT Narrative Resulting Agency Comment Spec In Lab Cathy Dillon APRN LAB SEND OUT ORDNina RABMARCELO Performing Organization Address City/[facility]/ZIP Co de Phone Number [facility] [place] [address] * (ABNORMAL) Iron and TIBC (04/27/2017 11:12 AM EDT) [facility] Iron 51 30 - 150 mcg/dL [facility] TIBC 324 250 - 450 mcg/dL [facility] Iron Saturation 16(L) 20 - 50 % [facility] Blood specimen (specimen) 04/27/2017 11:12 AM EDT 04/27/2017 11:19 AM EDT Narrative Resulting Agency Comment Spec In Lab Cathy Dillon APRN CHEMISTRY ORDERAB LES Performing Organization Address [facility]/ZIP Co de Phone Number [facility] [place] [address] * Ferritin (04/27/2017 11:12 AM EDT) [facility] Ferritin 35 30 - 400 ng/mL [facility] Comment: Pediatric reference ranges not verified at [facility], interpret with caution. Reference ranges for females greater than 50 years of age approach values for men, i.e., 30-400 ng/mL. Blood specimen (specimen) 04/27/2017 11:12 AM EDT 04/27/2017 11:19 AM EDT Narrative Resulting Agency Comment Spec In Lab Cathy Dillon SILVER SPRAY WORKER CHEMISTRY ORDERAB LES Performing Organization Address City/State/[facility] Co de Phone Number [facility] [place] [address] documented in this encounter Visit Diagnoses Diagnosis [...] type documented in this encounter Care Teams Jewish History Professor Relationship Specialty Start Date End Date Nanda Read MD [facility] D [address] [place] [address] PCP - General 09/14/10 06/06/18 documented as of this encounter
--- OUTSIDE RECORDS SUMMARY | 2024-09-18 16:13 | XMS_ITS | Encounter Summary ---
Author Organization [facility] Address [facility] [place] [address] Care Team Providers Care Recyclable Products Sorter Name Role Phone Nanda Read MD Primary Care Provider [phone] Reason for Visit * Consultation (Routine) - Closed Specialty Diagnoses / Procedures Referred By Patricio monsivais Referred To Contact Plastic Surgery Diagnoses Candidal intertrigo Symptomatic abdominal panniculus Cathy Dillon, [place] [facility] [place] [address] Abril Machado MD [facility] [place] [address] Referral ID Status Reason Start Date Expiration Date V isits Requested Visits Authorized [id number] Closed Consult, Test & Treat 04/06/2017 04/06/2018 1 1 Encounter Details Date Type Department Care Team (Late st Contact Info) Description 04/27/2017 9:45 AM EDT Office [place] [address] Chetan Rosenthal MD [facility] [place] [address] Abdominal pannus Social History Tobacco [...] appointment. Feel free to call our office [phone] if you have any questions or concerns. [...] GASTROPLASTY, performed by Jose Mai MD at [facility] MAIN OR ??? PRO UPPER GI ENDOSCOPY, BIOPSY 11/16/2011 EGD WITH BIOPSY performed by ALISA RICHARDS at [facility] ENDOSCOPY ??? PRO UPPER GI ENDOSCOPY, DIAGNOSTIC N/A 11/04/2015 EGD, UPPER GI ENDOSCOPY performed by Kisha Doss MD at [facility] ENDOSCOPY ??? PRO UPPER GI ENDOSCOPY, DIAGNOSTIC N/A 01/04/2016 ENDOSCOPY, UPPER GI, DIAGNOSTIC, WITH OR WITHOUT SPECIMENS performed by Jose Mai MD at [facility] MAIN OR ??? TUBAL LIGATION ??? UPPER GI ENDOSCOPY, EXAM 11/16/2011 UPPER GI ENDOSCOPY performed by ALISA RICHARDS at [facility] ENDOSCOPY Social History Social History ??? Marital [...] adjacent structures. She has been providedwith the [facility] patient information brochure, as well as [...] month Coordinated with: None Procedure: Panniculectomy CPT: 98660 Surgical site: Abdomen Side: N/a Anesthesia: General Follow up: 10-14 days with AEE H&P: With PCP Jono Phillips am acting as scribe for Dr. Rosenthal. All work documented was performed by Dr. Rosenthal. ???I performed the above scribed service and agree with the accuracy of the note?? CHETAN ROSENTHAL MD * Jacquelyn Sinclair LPN - 04/27/2017 9:45 AM EDT Pre-Op Teaching for Surgery Surgery: abdomen Written and verbal pre-operative instructions were given and reviewed with patient. Patient was advised to discontinue use of NSAIDS and aspirin products 14 days prior to surgery unless otherwise advised by patient's PCP/Cash Register Balancer for cardiac symptoms, to perform the pre-op [...] AM EDT TH Visit (TeleHealth) [place] [address] Wyatt Higgins MD [facility] [place] [place] [address] documented as of this encounter Procedures Procedure Name Priority Date/Time Associated Diagnosis Comments PANNICULECTOMY Routine 04/27/2017 10:21 AM EDT documented in this encounter Results * (ABNORMAL) Hemoglobin A1c (04/27/2017 11:12 AM EDT) Hemoglobin A1c 6.5(H) 4.3 - 5.6 % [facility] Comment: Reference Range: 4.3 [...] Mellitus, Diabetes Care 2013; 36: Suppl. 1, S67-88 Estimated Average Glucose 140 mg/dL [facility] Comment: eAG [...] into estimated average glucose values. ??Diabetes Care 2008:31(8):4735-4408. Blood specimen (specimen) 04/27/2017 11:12 AM EDT 04/27/2017 11:19 AM EDT Narrative Resulting Agency Comment Spec In Lab Chetan Rosenthal MD CHEMISTRY ORDERABLES [facility] [place] [address] documented in this encounter Visit Diagnoses Diagnosis Abdominal pannus Localized adiposity documented in this encounter Care Teams Recyclable Products Sorter Relationship Specialty Start Date End Date Nanda Read MD [facility] D [address] [place] [address] PCP - General 09/14/10 06/06/18 documented as of this encounter
--- OUTSIDE RECORDS SUMMARY | 2024-09-18 16:13 | XMS_ITS | Encounter Summary ---
Author Organization [facility] [place] [address] Care Team Providers Care Market Research Interviewer Name Role Phone Nanda Read MD Primary Care Provider [phone] Encounter Details Date Type Department Care Team (Late st Contact Info) Description 07/05/2016 1:00 PM EDT Office Visit [place] [address] Judith Reinoso MD [facility] [place] [place] [address] Type 2 diabetes, controlled, with neuropathy Social [...] will see Dr. Mai and Cathy Dillon MANAGER HOME again today as well. She is better [...] team before the surgery. She recently increased [place] multivitaminto 2 tab daily but this will [...] aches. She has been taking 2 of [place] MVI daily and could not tolerate iron [...] AM EDT TH Visit (TeleHealth) [place] [address] Wyatt Higgins MD [facility] [place] [address] documented as of this encounter Results * U Albumin/Cre Ratio (01/30/2017) Urine specimen (specimen) 01/30/2017 Judith Reinoso MD URINE ORDERABLES * (ABNORMAL) Basic Metabolic Panel (non-fasting) (01/30/2017) Glucose 244(AMBULATORY CARE NURSE AL/ABN) Blood Urea Nitrogen 9(External Lab) Creatinine 0.40(EXTER NAL/ABN) Sodium 141(Supervisor Waterproofing al Lab) Potassium 4.2(Supervisor Waterproofing al Lab) Chloride 104(Supervisor Waterproofing al Lab) Cholesterol, Total 166(Supervisor Waterproofing al Lab) Blood specimen (specimen) 01/30/2017 Judith Reinoso MD CHEMISTRY ORDERAB LES * (ABNORMAL) Hemoglobin A1c (01/30/2017) Hemoglobin A1c 8.1(AMBULATORY CARE NURSE AL/ABN) Blood specimen (specimen) 01/30/2017 Judith Reinoso MD CHEMISTRY ORDERAB LES * C-peptide (07/05/2016 2:18 PM EDT) C-Peptide 4.2 1.1 - 4.4 ng/mL [facility] Comment: Test Performed by: [place] [address] Returned Case Inspector: Jose Sands II, M.D., Ph.D. Blood specimen (specimen) 07/05/2016 2:18 PM EDT 07/06/2016 8:49 AM EDT Narrative Resulting Agency Comment Spec In Lab Judith Reinoso MD CHEMISTRY ORDERAB LES [facility] [place] [address] documented in this encounter Visit Diagnoses Diagnosis Type 2 diabetes, controlled, with neuropathy Type II or unspecified type diabetes mellitus with neurological manifestations, not stated as uncontrolled documented in this encounter Care Teams Market Research Interviewer Relationship Specialty Start Date End Date Nanda Read MD [facility] [address] [place] [address] PCP - General 09/14/10 06/06/18 documented as of this encounter
--- OUTSIDE RECORDS SUMMARY | 2024-09-18 16:13 | XMS_ITS | Encounter Summary ---
Author Organization [facility] [place] [address] Care Team Providers Care Conductor Pullman Name Role Phone Nanda Read MD Primary Care Provider [phone] Encounter Details Date Type Department Care Team (Late st Contact Info) Description 02/03/2016 Orders [place] [address] Judith Reinoso MD [facility] [place] [address] Type 2 diabetes, uncontrolled, with neuropathy; Vitamin [...] Mon or Tue (March 07-) and our social secretary will help coordinate her visits with [...] AM EDT TH Visit (TeleHealth) [place] [phone] Wyatt Higgins MD [facility] [place] [address] documented as of this encounter Results * PTH (07/05/2016 2:18 PM EDT) Parathyroid Hormone 56 15 - 65 pg/mL [facility] Blood specimen (specimen) 07/05/2016 2:18 PM EDT 07/05/2016 3:00 PM EDT Narrative Resulting Agency Comment Spec In Lab Judith Reinoso MD CHEMISTRY ORDERAB LES Performing Organization Address City/[facility]/ZIP Co de Phone Number [facility] [place] [address] * (ABNORMAL) Iron and TIBC (07/05/2016 2:18 PM EDT) Iron 57 30 - 150 mcg/dL [facility] TIBC 298 250 - 450 mcg/dL [facility] Iron Saturation 19(L) 20 - 50 % [facility] Blood specimen (specimen) 07/05/2016 2:18 PM EDT 07/05/2016 3:00 PM EDT Narrative Resulting Agency Comment Spec In Lab Judith Reinoso MD CHEMISTRY ORDERAB LES Performing Organization Address City/[facility]/ZIP Co de Phone Number [facility] [place] [address] * VIT D Total Evaluation (07/05/2016 2:18 PM EDT) Vitamin D Total 25 OH 32 30 - 100 ng/mL [facility] Comment: Deficient <10 ng/mL Insufficient 10 to 29 ng/mL Sufficient 30 to 100 ng/mL Potential Intoxication >100 ng/mL According to the US National Osteoporosis Foundation, Vitamin D concentrations >30 ng/mL are sufficient to protect bone health. ??The National Kidney Foundation has similarly stated that patients with Vitamin D concentrations <30ng/mL should be considered to be insufficient or deficient. http://Ripl/DHMCnatlkidneyfoundation http://Ripl/DHMCVitD The IDS iSYS Vitamin D Immunoassay detects both 25-OH Vitamin D2 and 25-OH Vitamin D3, but only a total Vitamin D concentration is reported. Blood specimen (specimen) 07/05/2016 2:18 PM EDT 07/05/2016 3:00 PM EDT Narrative Resulting Agency Comment Spec In Lab Judith Reinoso MD CHEMISTRY ORDERAB LES [facility] [place] [address] * Vitamin B12 (07/05/2016 2:18 PM EDT) Vitamin B12 416 207 - 974 pg/mL [facility] Blood specimen (specimen) 07/05/2016 2:18 PM EDT 07/05/2016 3:00 PM EDT Narrative Resulting Agency Comment Spec In Lab Judith Reinoso MD CHEMISTRY ORDERAB LES Performing Organization Address [facility] Co de Phone Number [facility] [place] [address] * (ABNORMAL) Hemoglobin A1c (07/05/2016 2:18 PM EDT) Hemoglobin A1c 7.4(H) 4.3 - 5.6 % [facility] Comment: Reference Range: 4.3 - [...] Mellitus, Diabetes Care 2013; 36: Suppl. 1, S67-31 Estimated Average Glucose 166 mg/dL [facility] Comment: eAG equivalents for HbA1c percentages: HbA1c(%) ?eAG(mg/dL) 6.0 ?126 6.5 ?140 7.0 ?154 7.5 ?169 8.0 ?183 8.5 ?197 9.0 ?212 9.5 ?226 10.0 ? 240 Limitations: The eAG calculation has not been validated on women, individuals below 18 years old and above 70 years old, and individuals with hemoglobinopathies. Additional resources are available on the ADA website: http://Net Orange.Enefgy/DHMCadacalc Maurice GODINEZ, Marion J, Miriam R, et al. ??Translating the A1C assay into estimated average glucose values. ??Diabetes Care 2008:31(8):5980-9734. Blood specimen (specimen) 07/05/2016 2:18 PM EDT 07/05/2016 3:00 PM EDT Narrative Resulting Agency Comment Spec In Lab Judith Reinoso MD CHEMISTRY ORDERAB LES [facility] [place] [address] documented in this encounter Visit Diagnoses Diagnosis Type 2 diabetes, uncontrolled, with neuropathy Type II or unspecified type diabetes mellitus with neurological manifestations, uncontrolled Vitamin D deficiency Unspecified vitamin D deficiency Iron deficiency anemia, unspecified iron deficiency anemia type documented in this encounter Care Teams Conductor Pullman Relationship Specialty Start Date End Date Nanda Read MD [facility] [address] [place] [address] PCP - General 09/14/10 06/06/18 documented as of this encounter
--- OUTSIDE RECORDS SUMMARY | 2024-09-18 16:13 | XMS_ITS | Encounter Summary ---
Author Organization [facility] [place] [address] Care Team Providers Care Hospital Recruiter Name Role Phone Nanda Read MD Primary Care Provider [phone] Encounter Details Date Type Department Care Team (Latest Contact Info) Description 06/19/2017 5:25 PM EDT Laboratory Appointment Lab [address] [place] [address] Polyneuropathy, peripheral sensorimotor axonal Social History Tobacco [...] AM EDT TH Visit (TeleHealth) [place] [phone] Wyatt Higgins MD [facility] [place] [address] (work) documented as of this encounter Procedures Procedure Name Priority Date/Time Associated Diagnosis Comments MISCELLANEOUS LAB REQUEST Routine 06/19/2017 5:55 PM EDT Polyneuropathy, peripheral sensorimotor axonal IMMUNOGLOBULINS, QUANTITATIVE Routine 06/19/2017 5:55 PM EDT IMMUNOFIXATION ELECTROPHORESIS, SERUM Routine 06/19/2017 5:55 PM EDT PROTEIN ELECTROPHORESIS, SERUM Routine 06/19/2017 5:55 PM EDT Polyneuropathy, peripheral sensorimotor axonal documented in this encounter Results * Immunoglobulins, Quantitative (06/19/2017 5:55 PM EDT) Pathologist [facility] Immunoglobulin G 1,009 700 - 1,600 mg/dL [facility] IgA 379 70 - 400 mg/dL [facility] IgM 76 40 - 230 mg/dL [facility] Blood specimen (specimen) Venous Draw / Unknown 06/19/2017 5:55 PM EDT 06/19/2017 6:20 PM EDT Narrative Resulting Agency Comment Spec In Lab Robert Victor MD CHEMISTRY ORDERAB LES [facility] [place] [address] * Immunofixation Electrophoresis (06/19/2017 5:55 PM EDT) [facility] Immunofixation Interpretation See Note [facility] Comment: GHASSAN shows no evidence of a monoclonal immunoglobulin. Dr. Clara Thompson 06/22/17 Please see scanned report in Chart Review under the [facility] Heading. Blood specimen (specimen) Venous Draw / Unknown 06/19/2017 5:55 PM EDT 06/19/2017 6:20 PM EDT Narrative Resulting Agency Comment Spec In Lab Robert Victor MD CHEMISTRY ORDERAB LES Performing Organization Address [facility] Co de Phone Number [facility] [place] [address] * Protein Electrophoresis, serum (06/19/2017 5:55 PM EDT) Total Prot Electrophoresis 6.8 6.1 - 8.0 gm/dL [facility] Albumin Electrophoresis 4.20 3.60 - 6.00 gm/dL [facility] Alpha 1 Globulin 0.18 0.10 - 0.30 gm/dL [facility] Alpha 2 Globulin 0.73 0.40 - 0.90 gm/dL [facility] Beta Globulin 0.81 0.50 - 1.00 gm/dL [facility] Gamma Globulin 0.88 0.50 - 1.30 gm/dL [facility] M1 Band Comments Below [facility] SPEP Comments See Note [facility] Comment: Immunofixation (GHASSAN) and quantitative immunoglobulin (SARAH) testing will be performed on this sample per MD request. Blood specimen (specimen) 06/19/2017 5:55 PM EDT 06/19/2017 6:06 PM EDT Narrative Resulting Agency Comment Spec In Lab Robert Victor MD CHEMISTRY ORDERAB LES Performing Organization Address [facility] Co de Phone Number [facility] [place] [address] * Miscellaneous Lab request (06/19/2017 5:55 PM EDT) Label Request received in lab. 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
--- OUTSIDE RECORDS SUMMARY | 2024-09-18 16:13 | XMS_ITS | Encounter Summary ---
Author Organization [facility] [place] [address] Care Team Providers Care Machine Operators Name Role Phone Nanda Read MD Primary Care Provider [phone] Reason for Visit * Reason Comments Vitamin B12 Deficiency Encounter Details Date Type Department Care Team (Late st Contact Info) Description 03/09/2016 11:30 AM EDT [place] [address] Judith Reinoso MD [facility] [place] [address] Diabetes mellitus type 2, uncontrolled; Type 2 [...] excellent and just saw Dr. Mai and Cathy Dillon SALES OPERATIONS DIRECTOR today with plan to FU again in [...] 1/2 mL 30 x 5/16 Syrg by [facility].(Non-Drug; Combo Route) route 2 times daily. Using [...] AM EDT TH Visit (TeleHealth) [place] [address] Wyatt Higgins MD [facility] [place] [address] documented as of this encounter Results * Microalbumin, urine, random (07/05/2016 2:21 PM EDT) Albumin / Creatinin Ratio, Urine 7 0 - 29 mcg/mg Cr [facility] [...] 2, 357? 362 Albumin, Urine 3.7 mg/L [facility] Creatinine, Urine 54 mg/dL [facility] Urine specimen (specimen) 07/05/2016 2:21 PM EDT 07/05/2016 3:12 PM EDT Narrative Resulting Agency Comment Spec In Lab Judith Reinoso MD URINE ORDERABLES [facility] [place] [address] documented in this encounter Visit Diagnoses Diagnosis Diabetes mellitus type 2, uncontrolled Type II or unspecified type diabetes mellitus without mention of complication, uncontrolled Type 2 diabetes, uncontrolled, with neuropathy Type II or unspecified type diabetes mellitus with neurological manifestations, uncontrolled Vitamin D deficiency Unspecified vitamin D deficiency documented in this encounter Care Teams Machine Operators Relationship Specialty Start Date End Date Nanda Read MD [facility] [address] [place] [address] PCP - General 09/14/10 06/06/18 documented as of this encounter
--- OUTSIDE RECORDS SUMMARY | 2024-09-18 16:14 | XMS_ITS | Encounter Summary ---
Author Organization [facility] [place] [address] Care Team Providers Care Ophthalmic Technician Apprentice Name Role Phone Nanda Read MD Primary Care Provider [phone] Reason for Visit * Reason Comments Patient Education Bariatric Surgery Pr ogram preoperative class Encounter Details Date Type Department Care Team (Late st Contact Info) Description 12/17/2015 12:30 PM EST Office Visit [place] [address] Cathy Dillon, HVAC INSTALLER [facility] [place] [address] Morbid obesity, unspecified obesity type [E66.01]; Type [...] EST BARIATRIC SURGERY DISCHARGE INFORMATION CONTACT INFORMATION: [phone] Surgeons: [facility] and [place] [phone] Automobile Mechanic Helper: [phone] (Monday through Monday, 8:00 AM -5:00 PM) Dietitian: [phone] Non-business hours: [phone], ask for general surgeon pony worker FOR EMERGENCIES: CALL 911 (trouble breathing, chest [...] Follow up with primary care provider or early intervention specialist in 1-2 weeks. Bring meter to [...] preand post operative instructions included in the [employer] Bariatric Surgery Program Education Handbook. One hour [...] preand post operative instructions included in the [employer] Bariatric Surgery Program Education Handbook. The one [...] She previously attended a Introduction to the [employer] Bariatric Surgery Program seminar, a two hour meeting that provides a program overview as well as expectations. The [employer] Bariatric Surgery Program Educational seminar requirement (3 seminars with post-testing) has been met. The [facility] Educational Handbook was provided at visit #1. 2. Pre-operative programmatic evaluations have been done, as noted in previous pathway review. 3. Bariatric Surgery Program evaluations with RD and PRECISION MILLWRIGHT have taken place, as noted in previous [...] surgery and post-op routine care/ locations: Admissions/SDP/PACU/4/3/2 [place] units ?? 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
--- OUTSIDE RECORDS SUMMARY | 2024-09-18 16:14 | XMS_ITS | Encounter Summary ---
Author Organization [facility] [place] [address] Care Team Providers Care Boot Turner Name Role Phone Nanda Read MD Primary Care Provider [phone] Encounter Details Date Type Department Care Team (Late st Contact Info) Description 11/17/2015 9:00 AM EST Office Visit [place] [phone] Social History Tobacco Use Types Packs/Day Years [...] AM EDT TH Visit (TeleHealth) [place] [phone] Wyatt Higgins MD [facility] [place] [address] documented as of this encounter Visit Diagnoses Not on filedocumented in this encounter Care Teams Boot Turner Relationship Specialty Start Date End Date Nanda Read MD [facility] [address] [place] [address] PCP - General 09/14/10 06/06/18 documented as of this encounter
--- OUTSIDE RECORDS SUMMARY | 2024-09-18 16:14 | XMS_ITS | Encounter Summary ---
[place] [address] Care Team Providers Care News Gathering Technician Name Role Phone Nanda Read MD Primary Care Provider [phone] Encounter Details Date Type Department Care Team (Late st Contact Info) Description 12/23/2015 Telephone [place] [address] Chelsea Andrews LPN Social History Tobacco Use [...] AM EDT TH Visit (TeleHealth) [place] [address] Wyatt Higgins MD [facility] [place] [address] documented as of this encounter Visit Diagnoses Not on filedocumented in this encounter Care Teams News Gathering Technician Relationship Specialty Start Date End Date Nanda Read MD [facility] [address] [place] [address] PCP - General 09/14/10 06/06/18 documented as of this encounter
--- OUTSIDE RECORDS SUMMARY | 2024-09-18 16:14 | XMS_ITS | Encounter Summary ---
Author Organization [facility] [place] [address] Care Team Providers Care Blind Lacer Name Role Phone Nanda Read MD Primary Care Provider [phone] Encounter Details Date Type Department Care Team (Late st Contact Info) Description 01/22/2016 Telephone [place] [address] Bravo Thomas MD [facility] [place] [address] Social History Tobacco Use Types Packs/Day Years [...] EDT TH Visit (TeleHealth) [place] [address] Wyatt Higgins MD [facility] [place] [address] documented as of this encounter Visit Diagnoses Not on filedocumented in this encounter Care Teams Blind Lacer Relationship Specialty Start Date End Date Nanda Read MD [facility] [address] [place] [address] PCP - General 09/14/10 06/06/18 documented as of this encounter
--- OUTSIDE RECORDS SUMMARY | 2024-09-18 16:14 | XMS_ITS | Encounter Summary ---
Author Organization [facility] [place] [address] Care Team Providers Care Button Breaker Operator Name Role Phone Nanda Read MD Primary Care Provider Encounter Details Date Type Department Care Team (Late st Contact Info) Description 12/03/2015 External Results [place] [address] Margi Chang, RN Social History [...] EDT TH Visit (TeleHealth) [place] [address] Wyatt Higgins MD [facility] [place] [address] documented as of this encounter Visit Diagnoses Not on filedocumented in this encounter Care Teams Button Breaker Operator Relationship Specialty Start Date End Date Nanda Read MD [facility] Carlos [address] [place] [address] PCP - General 09/14/10 06/06/18 documented as of this encounter
--- OUTSIDE RECORDS SUMMARY | 2024-09-18 16:14 | XMS_ITS | Encounter Summary ---
Author Organization [facility] [place] [address] Care Team Providers Care Handkerchief Sample Clerk Name Role Phone Nanda Read MD Primary Care Provider [phone] Encounter Details Date Type Department Care Team (Late st Contact Info) Description 11/11/2015 - 11/11/2015 11:59 PM EST Hospital Encounter Radiology Library at [facility] [place] [address] [address] Temporary Pain Discharge Disposition: Home Social History [...] AM EDT TH Visit (TeleHealth) [place] [address] Wyatt Higgins MD [facility] [place] [address] documented as of this encounter Procedures Procedure Name Priority Date/Time Associated Diagnosis Comments FILM LIBRARY STORAGE ONLY MAMMO Routine 11/11/2015 12:00 AM EST Pain documented in this encounter Results * Film Library- Storage only Mammo (11/11/2015 12:00 AM EST) Narrative [facility] - 12/03/2015 1:24 PM EST See PACS for result report. Dr [facility] FIL[facility] LIBRARY ORD ERABLES [place], [place] documented in this encounter Visit Diagnoses Diagnosis Pain Generalized pain documented in this encounter Care Teams Handkerchief Sample Clerk Relationship Specialty Start Date End Date Nanda Read MD [facility] [address] [place] [address] PCP - General 09/14/10 06/06/18 documented as of this encounter
--- OUTSIDE RECORDS SUMMARY | 2024-09-18 16:14 | XMS_ITS | Encounter Summary ---
Author Organization [facility] [place] [address] Care Team Providers Care Boot Trimmer Name Role Phone Nanda Oh MD Primary Care Provider [phone] Reason for Visit * Auth/Cert - Closed [...] Expiration Date Visits Re quested Visits Authorized [id number] Closed 1 1 Encounter Details Date Type Department Care Team (Late st Contact Info) Description 01/04/2016 12:42 PM EDT - 01/04/2016 4:40 PM EDT Surgery [place] [id number] Yokasta Esquivel MD [facility] [place] [address] @LAPAROSCOPIC GASTROPLASTY W/ BRADY-EN-Y CONSTRUCTION (WRVU 29.4) [...] a 49-year-old female who participated in the [facility] Bariatric Surgery Program.?? She is a woman that has had full participation in the [facility] program.?? She actually started off in the [facility] Program and for a number of [...] changed to oral pain medications and the SECRETARY BOOKKEEPER was discont inued on POD# 1. She [...] Syrg Commonly known as: INSULIN SYRINGE by [facility]Non-Drug; Combo Route) route 2 times daily. Using [...] 01/21/2016 3:00 PM Judith Reinoso MD Endocrinology [phone] 01/27/2016 3:30 PM Yokasta Esquivel MD; BARIATRIC, BIOLOGY DEPARTMENT CHAIR General Surgery [phone] Instructions Given to Patient at Discharge: BARIATRIC SURGERY DISCHARGE INFORMATION CONTACT INFORMATION: [phone] Surgeons: Ki Multani, Sergei and Trus [phone] Interdisciplinary Professor: [phone] (Monday through Monday, 8:00 AM -5:00 PM) Dietitian: [phone] Non-business hours: [phone], ask for general surgeon fundraising consultant FOR EMERGENCIES: CALL 911 (trouble breathing, chest [...] Follow up with primary care provider or fish hatchery specialist in 1-2 weeks. Bring meter to [...] after surgery. Signed: BERE Pérez 01/06/2016 Primary [place] Physician: NANDA OH MD KIRILL D [address] / [facility] [id number] documented in this encounter Discharge Instructions * Discharge Instructions* Magaly Diego PA - 01/06/2016 10:05 AM EDT Scheduled Appointments: ?? Future Appointments?? Provider?? Department?? Dept Phone? 01/21/2016 3:00 PM?? Judith Reinoso MD?? Endocrinology?? [phone]? 01/27/2016 3:30 PM?? Yokasta Esquivel MD; BARIATRIC, BIOLOGY DEPARTMENT CHAIR?? General Surgery?? [phone]? Instructions Given to Patient at Discharge: BARIATRIC SURGERY DISCHARGE INFORMATION CONTACT INFORMATION: [phone] Surgeons: Ki Multani Laycock and Bernarda [phone] Interdisciplinary Professor: [phone] (Monday through Monday, 8:00 AM -5:00 PM) Dietitian: [phone] Non-business hours: [phone], ask for general surgeon fundraising consultant FOR EMERGENCIES: CALL 911 (trouble breathing, chest [...] Follow up with primary care provider or fish hatchery specialist in 1-2 weeks.?? Bring meter to [...] mL 30 x 5/16 Syrg by [facility]Non-Drug; Combo Route) route 2 times daily. Using [...] treatment plan with RN and/or primary team, nuclear fuels research engineer and/or diabetes nurse educator, etc). * Magaly [...] Day Post-Op PLAN: NEURO: Pain control with SECRETARY BOOKKEEPER Dilaudid; transition to Oxycodone and Tylenol (tablet [...] Record reviewed and patient discussed with staff development manager. No Enoxaparin at time of discharge planned. Nodischarge needs identified at this time. Child Care Specialist remains available as needed for coordination of care and discharge planning. Elizabeth Weiss RN Pager# [phone] Child Care Specialist * Hollis Ruby DO - 01/04/2016 11:06 PM EDT Post-Operative Progress Note Patient: Martha Benoit s/p laparoscopic gastric bypass Surgery: 01/04/2016 [id number] Procedure(s) (LRB): @LAPAROSCOPIC GASTROPLASTY, (N/A) ENDOSCOPY, UPPER [...] suffered no apparent untoward event. Patient location: [facility] Surgical Floor Post-op Consciousness awake, alert [...] expecting some and it is tolerable with SECRETARY BOOKKEEPER. She does have significant peripheral neuropathy at baseline and has significant discomfort in her feet forwhich she usually treats with lidoderm patches. Objective: Vitals: Temp: [36.2 ??C (97.2 ??F)-36.9 ??C (98.4 ??F)] Heart Rate: [75-104] Resp: [14-30] BP: (119-161)/(62-135) SpO2: [97 %-100 %] Date 01/04/16 0700 - 01/05/16 0659 Shift [phone] 24 Hour Total I N T A [...] have post-operative bleed/complication - Analgesia adequate with SECRETARY BOOKKEEPER. Will add lidoderm patches bilateral LE for [...] C. Complications: retinopathy,?? peripheral autonomic neuropathy, sees shake out worker for calluses, declines flu shot ? [...] GI ENDOSCOPY performed by ALISA RICHARDS at [facility] ENDOSCOPY?? Anesthesia history (per patient): denies untoward [...] this morning, but had perked up since. SECRETARY BOOKKEEPER discontinued. Pain controlled with prn oxycodone. States [...] management and to provide a review of machine long goods helper diabetes plan. Diabetes History: Martha Benoit has [...] mL 30 x 5/16 Syrg by [facility]Non-Drug; Combo Route) route 2 times daily. Using [...] -add-on lab for new baseline HbA1c today. skilled nursing diabetes care: Medications - We will determine treatment regimen upon discharge based on the hospital course. Monitoring - tid ac & hs Diet - low fat/low carb diet Exercise - weight-bearing exercise 30 min/day, as tolerated Thank you for allowing me to participate in the care of this very pleasant and interesting patient. Contact: Judith Reinoso MD, PhD, FACE (pager # [phone]) [facility] Endocrinology , x Consult service will continue [...] abdominal lap sites encouraged to use the SECRETARY BOOKKEEPER.. PLAN MOVING FORWARD: Patient will be up [...] Esquivel MD - 01/04/2016 5:00 PM EDT [facility] Operative Note Patient Name: Martha Benoit : [id number] MR#: [id number] Case Date: 01/04/2016 Surgeon: Surgeon(s) and Role: [...] and has had full participation in the [facility] Bariatric Surgery program. Following review of her [...] Endo-ZORAN 45. At this point, a 30 Macedonian blunt tip bougie was passed by Anesthesia [...] AM EDT TH Visit (TeleHealth) [place] [address] Wyatt Higgins MD [facility] [place] [address] documented as of this encounter Procedures Procedure Name Priority Date/Time Associated Diagnosis Comments PRODUCTION ASSOCIATE SCAN 01/07/2016 12:00 AM EDT POCT GLUCOSE Routine 01/06/2016 8:27 AM EDT POCT GLUCOSE Routine 01/06/2016 7:05 AM EDT HEMOGRAM Routine 01/06/2016 6:50 AM EDT DIFFERENTIAL, AUTOMATED Routine 01/06/2016 6:50 AM EDT CBC (WITH DIFF) Routine 01/06/2016 6:50 AM EDT BASIC METABOLIC PANEL Routine 01/06/2016 6:50 AM EDT POCT GLUCOSE [...] 01/05/2016 5:44 AM EDT BASIC METABOLIC PANEL Routine 01/05/2016 5:44 AM EDT POCT GLUCOSE Routine 01/04/2016 11:06 PM EDT POCT GLUCOSE Routine 01/04/2016 8:48 PM EDT POCT GLUCOSE Routine 01/04/2016 5:22 PM EDT ENDOSCOPY, UPPER GI, DIAGNOSTIC, WITH OR WITHOUT SPECIMENS (WRVU 2.09) 01/04/2016 12:24 PM EDT OBESITY @LAPAROSCOPIC GASTROPLASTY W/ BRADY-EN-Y CONSTRUCTION (WRVU 29.4) 01/04/2016 12:24 PM EDT OBESITY documented in this encounter Results * SCAN DOC: PRODUCTION ASSOCIATE (01/07/2016 12:00 AM EDT) Anatomical Region Laterality Modality Other Scanning Provider MEDIA MGR SCAN EXT O RDR/RSLT * POCT Glucose (01/06/2016 8:27 AM EDT) Glucose, POC 182 65 - 199 mg/dL [facility] Comment: Supplemental ranges: <140 mg/dL before meals <180 mg/dL all other times of the day Blood specimen (specimen) 01/06/2016 8:27 AM EDT 01/06/2016 8:27 AM EDT Yokasta Esquivel MD POINT OF CARE TEST ORDERABLES [facility] [place] [address] * POCT Glucose (01/06/2016 7:05 AM EDT) Glucose, POC 194 65 - 199 mg/dL [facility] Comment: Supplemental ranges: <140 mg/dL before meals <180 mg/dL all other times of the day Blood specimen (specimen) 01/06/2016 7:05 AM EDT 01/06/2016 7:05 AM EDT Yokasta Esquivel MD POINT OF CARE TEST ORDERABLES Performing Organization Address City/[facility]/ZIP Co de Phone Number [facility] [place] [address] * (ABNORMAL) Differential, Automated (01/06/2016 6:50 AM EDT) [facility] Signature Neutrophil % 73.0 % [facility] Neutrophil Absolute 8.38(H) 1.50 - 6.30 x10(3)/mc L [facility] Lymph % 17.8 % [facility] Lymphocytes Abs 2.0 1.0 - 3.6 x10(3)/mc L [facility] Monocyte % 7.0 % [facility] Monocyte Abs 0.8 0.2 - 1.0 x10(3)/mc L [facility] Eos % 1.7 % [facility] Eosinophils Abs 0.2 0.0 - 0.5 x10(3)/mc L [facility] Basophil % 0.2 % [facility] Baso Absolute 0.0 0.0 - 0.2 x10(3)/[facility] Immature Gran % 0.30 % [facility] Comment: Immature granulocytes(IG's)percentage and absolute count will include metamyelocytes, myelocytes, and promyelocytes. Blood smears from CBCs yielding IG's will be scanned manually for concordance. If this scan disagrees with the automated IG or if promyelocytes are noted, a manual differential will be performed. Immature Gran Absolute 0.03 0.00 - 0.05 x10(3)/[facility] Blood specimen (specimen) 01/06/2016 6:50 AM EDT 01/06/2016 7:08 AM EDT Narrative Resulting Agency Comment Spec In Lab Yokasta Esquivel MD HEMATOLOGY ORDERABL ES Performing Organization Address City/State/[facility] Co de Phone Number [facility] [place] [address] * (ABNORMAL) Hemogram (01/06/2016 6:50 AM EDT) White Blood Cell 11.5(H) 4.0 - 10.0 x10(3)/[facility] Red Blood Cell 4.20 3.93 - 5.22 x10(6)/[facility] Hemoglobin 11.1(L) 11.2 - 15.7 gm/dL [facility] Hematocrit 35.2 34.0 - 45.0 % [facility] Mean Cell Volume 83.8 79.0 - 94.0 fL [facility] Mean Cell Hemoglobin 26.4(L) 26.6 - 32.2 pg [facility] Mean Cell Hemoglobin Concentration 31.5(L) 32.0 - 36.5 gm/dL [facility] Platelet 200 145 - 370 x10(3)/[facility] RDW Standard Deviation 43.4 35.0 - 46.0 fL [facility] RDW coefficient of variation 14.3 10.9 - 14.4 % [facility] Mean Platelet Volume 11.2 9.0 - 12.0 fL [facility] Blood specimen (specimen) 01/06/2016 6:50 AM EDT 01/06/2016 7:08 AM EDT Narrative Resulting Agency Comment Spec In Lab Yokasta Esquivel MD HEMATOLOGY ORDERABL ES [facility] [place] [address] * (ABNORMAL) Basic Metabolic Panel (non-fasting) (01/06/2016 6:50 AM EDT) Glucose 205(H) 65 - 199 mg/dL [facility] Comment:Diabetes: >=200 mg/d L plus symptoms Blood Urea Nitrogen 7(L) 8 - 18 mg/dL [facility] Creatinine 0.35(L) 0.70 - 1.20 mg/dL [facility] Comment: Please note that the pediatric reference intervals supplied above were not validated at [facility]. Results from pediatric patients should be interpreted in conjunction to the patient's age, height and muscle mass. Sodium 138 135 - 145 mmol/L [facility] Potassium 3.5 3.5 - 5.0 mmol/L [facility] Comment: Please note: ??Patients with WBC >100,000 may have falsely elevated Potassium levels. ??For accurate Potassium quantification in these patients send serum separator tube (gold top) for subsequent determinations. ??Contact the Clinical Chemistry Laboratory if there are any questions. Chloride 99 98 - 107 mmol/L [facility] Carbon Dioxide 25 22 - 31 mmol/L [facility] Anion Gap 14 5 - 15 mmol/L [facility] Calcium 8.2(L) 8.5 - 10.5 mg/dL [facility] Est Glomerular Filtration Rate >60 >=60 [facility] Comment: This estimated GFR (eGFR) [...] the following links into your internet browser. [email or web address] Blood specimen (specimen) 01/06/2016 6:50 AM EDT 01/06/2016 7:08 AM EDT Narrative Resulting Agency Comment Spec In Lab Yokasta Esquivel MD CHEMISTRY ORDERABLE S Performing Organization Address City/[facility]/ZIP Co de Phone Number [facility] [place] [address] * POCT Glucose (01/05/2016 8:52 PM EDT) Glucose, POC 147 65 - 199 mg/dL [facility] Comment: Supplemental ranges: <140 mg/dL before meals <180 mg/dL all other times of the day Blood specimen (specimen) 01/05/2016 8:52 PM EDT 01/05/2016 8:52 PM EDT Yokasta Esquivel MD POINT OF CARE TEST ORDERABLES Performing Organization Address City/[facility]/ZIP Co de Phone Number [facility] [place] [address] * POCT Glucose (01/05/2016 4:42 PM EDT) Glucose, POC 168 65 - 199 mg/dL [facility] Comment: Supplemental ranges: <140 mg/dL before meals <180 mg/dL all other times of the day Blood specimen (specimen) 01/05/2016 4:42 PM EDT 01/05/2016 4:42 PM EDT Yokasta Esquivel MD POINT OF CARE TEST ORDERABLES Performing Organization Address City/[facility]/ZIP Co de Phone Number [facility] [place] [address] * (ABNORMAL) POCT Glucose (01/05/2016 11:40 AM EDT) Glucose, POC 204(H) 65 - 199 mg/dL [facility] Comment: Supplemental ranges: <140 mg/dL before meals <180 mg/dL all other times of the day Blood specimen (specimen) 01/05/2016 11:40 AM EDT 01/05/2016 11:40 AM EDT Yokasta Esquivel MD POINT OF CARE TEST ORDERABLES Performing Organization Address [facility] Co de Phone Number [facility] [place] [address] * (ABNORMAL) POCT Glucose (01/05/2016 7:02 AM EDT) Glucose, POC 231(H) 65 - 199 mg/dL [facility] Comment: Supplemental ranges: <140 mg/dL before meals <180 mg/dL all other times of the day Blood specimen (specimen) 01/05/2016 7:02 AM EDT 01/05/2016 7:02 AM EDT Yokasta Esquivel MD POINT OF CARE TEST ORDERABLES Performing Organization Address City/[facility] Co de Phone Number [facility] [place] [address] * (ABNORMAL) Hemoglobin A1c (01/05/2016 5:44 AM EDT) Hemoglobin A1c 8.4(H) 4.3 - 5.6 % [facility] [facility] Mellitus, Diabetes Care 2013; 36: Suppl. 1, L25-86 Estimated Average Glucose 194 mg/dL [facility] [...] resources are available on the ADA website: [email or web address] Maurice GODINEZ, Marion J, Miriam R, et al. ??Translating the A1C assay into estimated average glucose values. ??Diabetes Care 2008:31(8):6846-8095. Blood specimen (specimen) Venous Draw / Unknown 01/05/2016 5:44 AM EDT 01/05/2016 10:26 AM EDT Narrative Resulting Agency Comment Spec In Lab Umberto Mcgill MD CHEMISTRY ORDERABLES [facility] [place] [address] * (ABNORMAL) Differential, Automated (01/05/2016 5:44 AM EDT) Neutrophil % 78.3 % [facility] Neutrophil Absolute 9.70(H) 1.50 - 6.30 x10(3)/[facility] Lymph % 14.0 % [facility] Lymphocytes Abs 1.7 1.0 - 3.6 x10(3)/[facility] Monocyte % 7.3 % [facility] Monocyte Abs 0.9 0.2 - 1.0 x10(3)/[facility] Eos % 0.1 % [facility] Eosinophils Abs 0.0 0.0 - 0.5 x10(3)/[facility] Basophil % 0.1 % [facility] Baso Absolute 0.0 0.0 - 0.2 x10(3)/[facility] Immature Gran % 0.20 % [facility] Comment: Immature granulocytes(IG's)percentage and absolute count will include metamyelocytes, myelocytes, and promyelocytes. Blood smears from CBCs yielding IG's will be scanned manually for concordance. If this scan disagrees with the automated IG or if promyelocytes are noted, a manual differential will be performed. Immature Gran Absolute 0.03 0.00 - 0.05 x10(3)/[facility] Blood specimen (specimen) 01/05/2016 5:44 AM EDT 01/05/2016 6:01 AM EDT Narrative Resulting Agency Comment Spec In Lab Umberto Mcgill MD HEMATOLOGY ORDERABLE S [facility] [place] [address] * (ABNORMAL) Hemogram (01/05/2016 5:44 AM EDT) White Blood Cell 12.4(H) 4.0 - 10.0 x10(3)/[facility] Red Blood Cell 4.44 3.93 - 5.22 x10(6)/[facility] Hemoglobin 12.0 11.2 - 15.7 gm/dL [facility] Hematocrit 36.3 34.0 - 45.0 % [facility] Mean Cell Volume 81.8 79.0 - 94.0 fL [facility] Mean Cell Hemoglobin 27.0 26.6 - 32.2 pg [facility] Mean Cell Hemoglobin Concentration 33.1 32.0 - 36.5 gm/dL [facility] Platelet 225 145 - 370 x10(3)/mc L [facility] RDW Standard Deviation 42.9 35.0 - 46.0 fL [facility] RDW coefficient of variation 14.3 10.9 - 14.4 % [facility] Mean Platelet Volume 11.3 9.0 - 12.0 fL [facility] Blood specimen (specimen) 01/05/2016 5:44 AM EDT 01/05/2016 6:01 AM EDT Narrative Resulting Agency Comment Spec In Lab Umberto Mcgill MD HEMATOLOGY ORDERABLE S [facility] [place] [address] * (ABNORMAL) Basic Metabolic Panel (non-fasting) (01/05/2016 5:44 AM EDT) Glucose 236(H) 65 - 199 mg/dL [facility] Comment:Diabetes: >=200 mg/d L plus symptoms Blood Urea Nitrogen 10 8 - 18 mg/dL [facility] Creatinine 0.52(L) 0.70 - 1.20 mg/dL [facility] Comment: Please note that the pediatric reference intervals supplied above were not validated at [facility]. Results from pediatric patients should be interpreted in conjunction to the patient's age, height and muscle mass. Sodium 138 135 - 145 mmol/L [facility] Potassium 3.7 3.5 - 5.0 mmol/L [facility] Comment: Please note: ??Patients with WBC >100,000 may have falsely elevated Potassium levels. ??For accurate Potassium quantification in these patients send serum separator tube (gold top) for subsequent determinations. ??Contact the Clinical Chemistry Laboratory if there are any questions. Chloride 100 98 - 107 mmol/L [facility] Carbon Dioxide 24 22 - 31 mmol/L [facility] Anion Gap 14 5 - 15 mmol/L [facility] Calcium 7.9(L) 8.5 - 10.5 mg/dL [facility] Est Glomerular Filtration Rate >60 >=60 [facility] Comment: This estimated GFR (eGFR) [...] the following links into your internet browser. [email or web address] Blood specimen (specimen) 01/05/2016 5:44 AM EDT 01/05/2016 6:01 AM EDT Narrative Resulting Agency Comment Spec In Lab Umberto Mcgill MD CHEMISTRY ORDERABLES Performing Organization Address City/[facility]/ZIP Co de Phone Number [facility] [place] [address] * (ABNORMAL) POCT Glucose (01/04/2016 11:06 PM EDT) Glucose, POC 214(H) 65 - 199 mg/dL [facility] Comment: Supplemental ranges: <140 mg/dL before meals <180 mg/dL all other times of the day Blood specimen (specimen) 01/04/2016 11:06 PM EDT 01/04/2016 11:06 PM EDT Yokasta Esquivel MD POINT OF CARE TEST ORDERABLES [facility] [place] [address] * (ABNORMAL) POCT Glucose (01/04/2016 8:48 PM EDT) Glucose, POC 258(H) 65 - 199 mg/dL [facility] Comment: Supplemental ranges: <140 mg/dL before meals <180 mg/dL all other times of the day Blood specimen (specimen) 01/04/2016 8:48 PM EDT 01/04/2016 8:48 PM EDT Yokasta Esquivel MD POINT OF CARE TEST ORDERABLES Performing Organization Address [facility] Co de Phone Number [facility] [place] [address] * (ABNORMAL) POCT Glucose (01/04/2016 5:22 PM EDT) Glucose, POC 218(H) 65 - 199 mg/dL [facility] Comment: Supplemental ranges: <140 mg/dL before meals <180 mg/dL all other times of the day Blood specimen (specimen) 01/04/2016 5:22 PM EDT 01/04/2016 5:22 PM EDT Yokasta Esquivel MD POINT OF CARE TEST ORDERABLES Performing Organization Address [facility] Co de Phone Number [facility] [place] [address] documented in this encounter Visit Diagnoses Not [...] Stuart RN)1641 (Given - Provider: Yasmine Stuart RN)205 (Given - Provider: Destiny Zuniga RN) 0833 [...] 2101 (Given - Provider: Destiny Zuniga RN) 0808 (Given - Provider: Yasmine Stuart RN)1200 (Given - Provider: Yasmine Stuart RN)1644 (Given - Provider: Yasmine Stuart RN) 0827 (Given - Provider: Abi Gagnon RN) levothyroxine (SYNTHROID) tablet 25 mcg (CANCELED) 25 mcg, Oral, EVERY MORNING, First dose on Mon01/05/16 at 0600, Until Discontinued, Routine 0600 (Not Given - Provider: Destiny Zuniga RN - Reason: NPO) 0618 (Given - Provider: Destiny Zuniga RN) lidocaine (LIDODERM) 5 % patch 2 patch (CANCELED)(Linked Group 2) 2 patch, Transdermal, DAILY, First dose on Mon01/05/16 at 0900, Until Discontinued, Apply patch(es) for 12 hours, and then remove for 12 hours, Routine 0808 (Patch Applied - Provider: Yasmine Stuart RN - Comment: top of foot L. pt only wanted one patch on) 0830 (Patch Applied - Provider: Abi Gagnon RN - Comment: bilateral feet) metFORMIN (GLUCOPHAGE) tablet 500 mg (CANCELED) 500 mg, Oral, 2 TIMES DAILY WITH MEALS, First dose on Mon01/05/16 at 0800, Until Discontinued, Routine 0807 (Given - Provider: Yasmine Stuart RN)1641 (Given - Provider: Yasmine Stuart RN) 0800 (Not Given - Provider: Abi Gagnon RN - Reason: Patient/family refused) pantoprazole (PROTONIX) injection 40 mg (CANCELED) 40 mg, Intravenous, DAILY, First dose on Mon01/04/16 at 2000, Until Discontinued, Reconstitute with 10 mL of normal saline to a concentration of 4 mg/mL and infuse slowly over 2 minutes., Routine 210 (Given - Provider: Destiny Zuniga RN) 08 [...] RN) 08 (Given - Provider: Yasmine Stuart RN)210 (Given - Provider: Destiny Zuniga RN) 0837 (Given - Provider: Abi Gagnon RN) Continuous Medication Order 01/04/2016 01/05/2016 01/06/2016 HYDROmorphone (DILAUDID) 1 mg/mL SECRETARY BOOKKEEPER 50 mL (CANCELED) Intravenous, SECRETARY BOOKKEEPER ONLY, Starting on Mon01/04/16 at 1800, Until Mon01/05/16 at 0920, Recovery (Recovery-Hospital Unit) 1753 (New Syringe/Cartridge - Provider: Benedicto Cameron RN) 1011 (Stopped - Provider: Carolina Hinkle RN) lactated ringers infusion 1,000 mL (CANCELED) 1,000 mL, at 100 mL/hr, Intravenous, CONTINUOUS, Starting on Mon01/04/16 at 1815, Until Mon01/06/16 at 1300, Recovery (Recovery-Hospital Unit) 1802 (New Bag - Provider: Benedicto Cameron RN) 0357 (New Bag - Provider: Destiny Zuniga RN)1352 (New Bag - Provider: Yasmine Stuart RN)2331 (New Bag - Provider: Destiny Zuniga RN) [...] ordered, use ondansetron first, prochlorperazine second. Per SECRETARY BOOKKEEPER order., Recovery (Recovery-Hospital Unit) 1943 (Given - [...] Carolina Hinkle RN)1352 (Given - Provider: Yasmine Stuart RN)1749 (Given - Provider: Yasmine L Narciso, RN)2305 (Given - Provider: Destiny Zuniga RN) 0401 (Given - Provider: Padma Ulloa RN)0824 (Given - Provider: Abi Gagnon RN) prochlorperazine (COMPAZINE) injection 10 mg (CANCELED) 10 mg, Intravenous, EVERY 6 HOURS PRN, Starting on Mon01/05/16 at 2310, Until Mon01/06/16 at 1300, Nausea, Routine 232 (Given - Provider: Destiny Zuniga RN) 0625 [...] ordered, use ondansetron first, prochlorperazine second. Per SECRETARY BOOKKEEPER order., Recovery (Recovery-Hospital Unit), Routine 2111 (Given - Provider: Destiny Zuniga RN) 06 (Given - Provider: Destiny Zuniga RN) promethazine [...] Recovery documented in this encounter Care Teams Boot Trimmer Relationship Specialty Start Date End Date Niemira, Nanda A, MD [facility] [address] [place] [address] PCP - General 09/14/10 06/06/18 documented as of this encounter
--- OUTSIDE RECORDS SUMMARY | 2024-09-18 16:14 | XMS_ITS | Encounter Summary ---
[place] [address] Care Team Providers Care Senior Program Manager Name Role Phone Nanda Read MD Primary Care Provider [phone] Encounter Details Date Type Department Care Team (Late st Contact Info) Description 11/17/2015 1:00 PM EST Office Visit [place] [address] Marlena Ramos, OT Chronic foot pain, unspecified laterality; Morbid obesity [...] GI ENDOSCOPY performed by ALISA RICHARDS at [facility] ??? Pro upper gi endoscopy, biopsy 11/16/2011 EGD WITH BIOPSY performed by ALISA RICHARDS at [facility] ??? Tubal ligation ??? Cystoscopy Left 01/15/1995 stent placement ??? Lithotripsy Left 12/26/2000 ??? Cystoscopy Left 04/03/2001 ??? Cystoscopy Left 08/26/2001 ??? Cystoscopy Left 10/31/2000 ??? Heel spur surgery Left ??? Pro upper gi endoscopy, diagnostic N/A 11/04/2015 EGD, UPPER GI ENDOSCOPY performed by Kisha Doss MD at [facility] Social History: Patient lives with her [...] shoes by pulling LE's up onto mat [facility] AM-PAC 6 Clicks Daily Activity Inpatient Short [...] patient's evaluation including the following functional test(s) [facility] 6 Clicks Daily Activity Form. Current ability measures, co-morbidities and clinical judgement were also used to select the disability modifier. This Patient's current G-Code functional level is 0% impaired based upon 6 clicks. Total time spent with patient: 25 minutes for evaluation Total timed interventions: 0 minutes Pager: [phone] MARLENA RAMOS OT 11/17/2015 Occupational Therapy Rehabilitation Department documented in this encounter Plan of Treatment Upcoming Encounters Date Type Department Care Team (Late st Contact Info) Description 02/19/2025 9:00 AM EDT TH Visit (TeleHealth) [place] [address] Wyatt Higgins MD [facility] [place] [address] documented as of this encounter Visit Diagnoses Diagnosis Chronic foot pain, unspecified laterality Morbid obesity with BMI of 40.0-44.9, adult Morbid obesity documented in this encounter Care Teams Senior Program Manager Relationship Specialty Start Date End Date Nanda Read MD [facility] [address] [place] [address] PCP - General 09/14/10 06/06/18 documented as of this encounter
--- OUTSIDE RECORDS SUMMARY | 2024-09-18 16:14 | XMS_ITS | Encounter Summary ---
Author Organization [facility] [place] [address] Care Team Providers Care Waste Paper Hammermill Operator Name Role Phone Nanda Read MD Primary Care Provider [phone] Reason for Visit * Reason Comments Morbid Obesity Bariatric Surgery Pr ogram preoperative visit #2 Encounter Details Date Type Department Care Team (Latest Contact Info) Description 11/17/2015 9:00 AM EST Office [place] [address] Cathy Dillon, ASSISTED LIVING HOUSEKEEPER [facility] [place] [address] Gastroesophageal reflux disease, esophagitis presence not specified; [...] BARIATRIC SURGERY PROGRAM SECOND VISIT Contact information: [facility] Admin coordinator Rosey: [phone] Dietitian: [phone] Surgeons/ nurse practitioner: [phone] Nurse line: [phone] 1. Pending information: evidence of compliance to [...] Psychological Implications of bariatric surgery on the [facility] website under Bariatric Surgery ([email or web address]) 3. Come prepared to the [...] be crushed (if permitted by the drug biofuels production manager) or taken in liquid form for TWO WEEKS after surgery. Diabetic oral medication often does not need hans taken after surgery) ?? If you take antinflammatory medications or steroid medicationsfor arthritis or asthma, please check with your doctor. These medications will likely need to be held 1 week prior to and at least a few weeks after surgery. Bariatric surgery apps- [facility] facebook page: [email or web address] documented in this encounter Progress Notes * [...] through dieting have been unsuccessful over the skilled nursing. Advised patient that bariatric surgery is a [...] He has attended a Introduction to the [facility] Bariatric Surgery Program seminar, a comprehensive two hour meeting that provides a program overview, education on bariatric surgeries offered at [facility], risks and benefits, as well as patient expectations and follow up, in 08/05/14. [facility] BSP Educational seminars viewed: 3. Grades on post-testin-100%. The BSP Educational Handbook is provided at preoperative visit #1. 2. Pre-operative programmatic evaluations required: PCP evaluation and letter of support to proceedwith surgery, BSP labwork (can be done on day of visit #1) and psychological evaluation- minimum of2 visits. 3. Bariatric Surgery Program evaluations with RD and DATA ACQUISITION TECHNICIAN: 11/03/15 and 11/17/15. 4. Weight history: 198 [...] 2 hour class taught by the Bariatric DATA ACQUISITION TECHNICIAN and RD will be scheduled ?? During [...] C. Complications: retinopathy, peripheral autonomic neuropathy, sees repair armature winder helper for calluses, declines flu shot ??? GERD [...] GI ENDOSCOPY performed by ALISA RICHARDS at [facility] Anesthesia history (per patient): [...] %. Discussion of bariatric surgeries performed at [facility], risks and benefits, and the [facility] Bariatric Surgery Program requirements: The risks of immediate and termite control technician complications as well as the benefits of [...] again emphasized. The need for commitment to skilled nursing lifestyle changes, with healthy diet and regular physical activity was stressed to achieve and sustain skilled nursing weight loss. Benefits of bariatric surgery discussed: [...] often will need to remain on insulin skilled nursing ?? patients also generally feel better, with [...] The rate of leak after sleeve at [facility] is 0%. ?? stricture of gastric remnant [...] Benoit has met the requirements of the [facility] Bariatric Surgery Program, and has an appointment today for surgical consultation. She was encouraged to call with any questions or concerns. Data reviewed: Visit #2 questionnaire Information reviewed with patient: 1. [facility] Bariatric Surgery Program Educational Handbook, bariatric surgery [...] 5 minutes Group counselin minutes Questions regarding [facility] Bariatric Surgery Program patients: please call Denny Dillon APRN at [phone] or [phone] beeper [phone]. documented in this encounter Miscellaneous Notes * Advance Care Plan Note - Cathy Dillon - 11/26/2015 8:16 PM EST Martha brought a copy of her AD to today's visit, which were sent for scanning documented in this encounter Plan of Treatment Upcoming Encounters Date Type Department Care Team (Late st Contact Info) Description 02/19/2025 9:00 AM EDT TH Visit (TeleHealth) [place] [address] Wyatt Higgins MD [facility] [place] [address] documented as of this encounter Visit Diagnoses Diagnosis Gastroesophageal reflux disease, esophagitis presence not specified Morbid obesity, unspecified obesity type Type 2 diabetes mellitus with diabetic neuropathy Type II or unspecified type diabetes mellitus with neurological manifestations, not stated as uncontrolled documented in this encounter Care Teams Waste Paper Hammermill Operator Relationship Specialty Start Date End Date Nanda Read MD [facility] [place] [address] [place] [address] PCP - General 09/14/10 06/06/18 documented as of this encounter
--- OUTSIDE RECORDS SUMMARY | 2024-09-18 16:14 | XMS_ITS | Encounter Summary ---
Author Organization [facility] [place] [address] Care Team Providers Care Abrasive Wheel Molder Name Role Phone Nanda Read MD Primary Care Provider [phone] Reason for Visit * Auth/Cert - Closed [...] Expiration Date Visits Re quested Visits Authorized [id number] Closed 1 1 Encounter Details Date Type Department Care Team (Late st Contact Info) Description 01/04/2016 12:22 PM EDT Anesthesia [place] [phone] Jonah Edge MD [facility] [place] [address] Tom Campos MD [facility] [place] [address] Anesthesia Record Procedure Summary Procedure Name Responsible [...] 1225; median vein left (underside of arm); wdyx-lfy-rlbyvk catheter system; 18 gauge; Moraimakondleslye; 01/04/16; 200901/04/16 1225 by Tom Campos MD [...] Tom Campos - 01/04/2016 5:30 PM EDT [facility] Department of Anesthesiology Post-procedure Note Patient: Martha Benoit Procedure Summary Date Anesthesia Start Anesthesia Stop Room / Location 01/04/16 1225 MH OR 26 / [facility] MAIN OR Procedure Diagnosis Surgeon Responsible Provider @LAPAROSCOPIC GASTROPLASTY, (N/A Abdomen); ENDOSCOPY, UPPER GI, DIAGNOSTIC, WITH OR WITHOUT SPECIMENS (N/A Esophagus) (OBESITY) Jose Mai MD Mancuso, Aaron J, MD All Anesthesia Providers: Anesthesiologist: Jonah Edge MD Blockers Skiver: Tom Campos MD Last (1hr) Vitals: BP Temp Pulse Resp SpO2 Patient Location: PACU/[facility] Level of Consciousness: Awake and Alert Pain [...] Julio Cesar Wright suggested lumbar puncture in [place] -if high protein, may need IVIG therapy or try two days of high dose steroid therapy ??? Preoperative Class III obesity BMI 43 Bariatric Surgery Program 1. Attended Introduction to the [facility] Bariatric Surgery Program seminar, a comprehensive two hour meeting that provides a program overview, education on bariatric surgeries offered at [facility], risks andmariannes, as well as patient expectations and follow up: 08/05/14. [facility] BSP Educational seminars viewed: 3. Grades on post-testin-100%. The BSP Educational Handbook is provided at preoperative visit #1. 2. Pre-operative programmatic evaluations required: PCP evaluation and letter of support to proceedwith surgery, BSP labwork (can be done on day of visit #1) and psychological evaluation- minimum of2 visits. 3. Bariatric Surgery Program evaluations with RD and ASSISTANT PLANT CONTROLLER: 11/03/15 4. Weight history: 198 pounds on [...] ureteral stone extraction Jul - [facility] [place] ??? Chronic foot pain-s/p heel spur surgeries [...] RICHARDS at [facility] ??? Pro upper gi endoscopy, biopsy 11/16/2011 EGD WITH BIOPSY performed by ALISA RICHARDS at [facility] ??? Tubal ligation ??? Cystoscopy Left 01/15/1995 stent placement ??? Lithotripsy Left 12/26/2000 ??? Cystoscopy Left 04/03/2001 ??? Cystoscopy Left 08/26/2001 ??? Cystoscopy Left 10/31/2000 ??? Heel spur surgery Left ??? Pro upper gi endoscopy, diagnostic N/A 11/04/2015 EGD, UPPER GI ENDOSCOPY performed by Kisha Doss MD at [facility] History Substance Use Topics ??? Smoking [...] discussed with patient and healthcare power of pattern wheel maker. Use of blood products discussed with patient and healthcare power of pattern wheel maker whom consented to blood products. Plan discussed [...] AM EDT TH Visit (TeleHealth) [place] [address] Wyatt Higgins MD [facility] [place] [address] documented as of this encounter Visit Diagnoses [...] mg documented in this encounter Care Teams Abrasive Wheel Molder Relationship Specialty Start Date End Date Nanda Read MD [facility] D [address] [place] [address] PCP - General 09/14/10 06/06/18 documented as of this encounter
--- OUTSIDE RECORDS SUMMARY | 2024-09-18 16:14 | XMS_ITS | Encounter Summary ---
[place] [address] Care Team Providers Care Mannequin Molder Name Role Phone Nanda Read MD Primary Care Provider [phone] Reason for Visit * Reason Onset Date Comments Other 12/03/2015 Encounter Details Date Type Department Care Team (Late st Contact Info) Description 12/03/2015 Telephone [place] [phone] [address] Other Social History Tobacco [...] Citrate, reviewed the dosing recommendations with her. Martha plans to look for a calcium citrate chewable to start taking. Patient is now ready to be scheduled for surgery, will contact surgical nurse. documented in this encounter Plan of Treatment Upcoming Encounters Date Type Department Care Team (Late st Contact Info) Description 02/19/2025 9:00 AM EDT TH Visit (TeleHealth) [place] [address] Wyatt Higgins MD [facility] [place] [address] documented as of this encounter Visit Diagnoses Not on filedocumented in this encounter Care Teams Mannequin Molder Relationship Specialty Start Date End Date Nanda Read MD [facility] [address] [place] [address] PCP - General 09/14/10 06/06/18 documented as of this encounter
--- OUTSIDE RECORDS SUMMARY | 2024-09-18 16:14 | XMS_ITS | Encounter Summary ---
Author Organization [facility] [place] [address] Care Team Providers Care Rotary Peel Oven Tender Name Role Phone Nanda Read MD Primary Care Provider [phone] Encounter Details Date Type Department Care Team (Late st Contact Info) Description 01/24/2016 - 01/24/2016 12:04 AM EDT Hospital Encounter Radiology Library at [place] [address] [address] Temporary Pain Discharge Disposition: Home Social [...] 1/2 mL 30 x 16 Syrg by [facility].(Non-Drug; Combo Route) route 2 times daily. Using with insulin bid 1 Box 4 06/03/2011 04/06/2017 documented as of this encounter Plan of Treatment Upcoming Encounters Date Type Department Care Team (Late st Contact Info) Description 02/19/2025 9:00 AM EDT TH Visit (TeleHealth) [place] [address] Wyatt Higgins MD [facility] [place] [address] documented as of this encounter Procedures Procedure Name Priority Date/Time Associated Diagnosis Comments FILM LIBRARY STORAGE ONLY DX ABDOMEN Routine 01/24/2016 12:00 AM EDT Pain documented in this encounter Results * Film Library- Storage only DX Abdomen (01/24/2016 12:00 AM EDT) Narrative [facility] - 01/25/2016 11:33 AM EDT See PACS for result report. Dr [facility] ERAB[facility] [place], [place] documented in this encounter Visit Diagnoses Diagnosis Pain Generalized pain documented in this encounter Care Teams Rotary Peel Oven Tender Relationship Specialty Start Date End Date Nanda Read MD [facility] D [address] [place] [address] PCP - General 09/14/10 06/06/18 documented as of this encounter
--- OUTSIDE RECORDS SUMMARY | 2024-09-18 16:14 | XMS_ITS | Encounter Summary ---
Author Organization [facility] [place] [address] Care Team Providers Care Internet Manager Name Role Phone Nanda Read MD Primary Care Provider [phone] Reason for Visit * Reason Onset Date Comments Follow-up 11/12/2015 Encounter Details Date Type Department Care Team (Late st Contact Info) Description 11/12/2015 Telephone [place] [phone] Cathy Dillon, [facility] [place] [address] Follow-up Social History Tobacco Use Types Packs/Day [...] risk for deficiencies. I advised her to chart picker the supplements that were calledin to her pharmacy. documented in this encounter Plan of Treatment Upcoming Encounters Date Type Department Care Team (Late st Contact Info) Description 02/19/2025 9:00 AM EDT TH Visit (TeleHealth) [place] [address] Wyatt Higgins MD [facility] [place] [address] documented as of this encounter Visit Diagnoses Not on filedocumented in this encounter Care Teams Internet Manager Relationship Specialty Start Date End Date Nanda Read MD [facility] D [address] [place] [address] PCP - General 09/14/10 06/06/18 documented as of this encounter
--- OUTSIDE RECORDS SUMMARY | 2024-09-18 16:14 | XMS_ITS | Encounter Summary ---
Author Organization [facility] [place] [address] Care Team Providers Care Sales Representative Metals Name Role Phone Nanda Read MD Primary Care Provider Encounter Details Date Type Department Care Team (Late st Contact Info) Description 01/25/2016 Telephone [place] [phone] Cathy Dillon, TEXTILES AND CLOTHING TEACHER [facility] [place] [address] Social History Tobacco Use Types Packs/Day Years [...] Read regarding Martha, who was admitted to [facility] yesterday with intermittent nausea, vomiting, difficulty with [...] Plan: discussed with Dr. Mai, transfer to [facility], will plan swallow at . CT scan pushed to for review by Dr. Mai. Copies of labwork done at [facility] will be scanned. Dr. Read and transfer center aware of plan. documented in this encounter Plan of Treatment Upcoming Encounters Date Type Department Care Team (Late st Contact Info) Description 02/19/2025 9:00 AM EDT TH Visit (TeleHealth) [place] [address] Wyatt Higgins MD [facility] [place] [address] documented as of this encounter Visit Diagnoses Diagnosis Morbid obesity, unspecified obesity type documented in this encounter Care Teams Sales Representative Metals Relationship Specialty Start Date End Date Nanda Read MD [facility] [address] [place] [address] PCP - General 09/14/10 06/06/18 documented as of this encounter
--- OUTSIDE RECORDS SUMMARY | 2024-09-18 16:14 | XMS_ITS | Encounter Summary ---
Author Organization [facility] Address [facility] [place] [address] Care Team Providers Care Maintenance Inspector Name Role Phone Nanda Read MD [...] Expiration Date Visits Re quested Visits Authorized [id number] 1 1 Encounter Details Date Type Department Care Team (Late st Contact Info) Description 11/04/2015 11:07 AM EST Anesthesia Event [place] [address] Evangelista Rico MD [facility] [place] [address] Anesthesia Record Procedure Summary Procedure Name Responsible [...] 1102; metacarpal vein right (top of hand); iqic-ave-hyjmks catheter system; 22 gauge; intradermal injection; 0; [...] Rico MD - 11/04/2015 11:37 AM EST [facility] Department of Anesthesiology Post-procedure Note Patient: Martha Benoit Procedure Summary Date Anesthesia Start Anesthesia Stop Room / Location 11/04/15 1107 1133 [facility] / [facility] Procedure Diagnosis Surgeon Responsible Provider EGD, [...] Julio Cesar Wright suggested lumbar puncture in [place] -if high protein, may need IVIG therapy or try two days of high dose steroid therapy ??? Morbid obesity Bariatric Surgery Program 1. Attended Introduction to the [facility] Bariatric Surgery Program seminar, a comprehensive two hour meeting that provides a program overview, education on bariatric surgeries offered at [facility], risks andbenefits, as well as patient expectations and follow up: 08/05/14. [facility] Bariatric Surgery Program evaluations with RD and CHICKEN BUYER: 11/03/15 4. Weight history: 198 pounds on [...] ureteral stone extraction Jul - [facility] - [place] ??? Chronic foot pain-s/p heel spur surgeries [...] GI ENDOSCOPY performed by ALISA RICHARDS at [facility] ??? Pro upper gi endoscopy, biopsy 11/16/2011 EGD WITH BIOPSY performed by ALISA RICHARDS at [facility] ??? Tubal ligation ??? Cystoscopy Left [...] risks discussed with patient. Plan discussed with RETURNED GOODS REPAIRER. PAT Staff Note documented in this encounter Plan of Treatment Upcoming Encounters Date Type Department Care Team (Late st Contact Info) Description 02/19/2025 9:00 AM EDT TH Visit (TeleHealth) [place] [address] Wyatt Higgins MD [facility] [place] [address] documented as of this encounter Visit Diagnoses [...] mL/hr documented in this encounter Care Teams Maintenance Inspector Relationship Specialty Start Date End Date Nanda Read MD [facility] D [address] [place] [address] PCP - General 09/14/10 06/06/18 documented as of this encounter
--- OUTSIDE RECORDS SUMMARY | 2024-09-18 16:14 | XMS_ITS | Encounter Summary ---
Author Organization [facility] [place] [address] Care Team Providers Care Front Desk Associate Name Role Phone Nanda Oh MD Primary Care Provider [phone] Reason for Visit * Auth/Cert - Closed [...] Expiration Date Visits Re quested Visits Authorized [id number] Closed 1 1 Encounter Details Date Type Department Care Team (Latest Contact Info) Description 01/04/2016 10:38 AM EDT - 01/06/2016 11:00 AM EDT Hospital Encounter [address] [place] [id number] Yokasta Esquivel MD [facility] [place] [address] Discharge Disposition: Home Social History Tobacco Use [...] a 49-year-old female who participated in the [facility] Bariatric Surgery Program.?? She is a woman that has had full participation in the [facility] program.?? She actually started off in the [facility] Program and for a number of [...] changed to oral pain medications and the STACK SUPERVISOR was discont inued on POD# 1. She [...] Syrg Commonly known as: INSULIN SYRINGE by [facility].(Non-Drug; Combo Route) route 2 times daily. Using [...] 01/21/2016 3:00 PM Judith Reinoso MD Endocrinology [phone] 01/27/2016 3:30 PM Yokasta Esquivel MD; BARIATRIC, [employer]TER [employer] CL[employer] General Surgery [phone] Instructions Given to Patient at Discharge: BARIATRIC SURGERY DISCHARGE INFORMATION CONTACT INFORMATION: [phone] Surgeons: Dr. Levy, Ki, Sergei and Trus [phone] Bench Patternmaker Metal: [phone] (Monday through Monday, 8:00 AM -5:00 PM) Dietitian: [phone] Non-business hours: [phone], ask for general surgeon communications director FOR EMERGENCIES: CALL 911 (trouble breathing, chest [...] Follow up with primary care provider or adult health clinical nurse specialist in 1-2 weeks. Bring meter to [...] after surgery. Signed: BERE Pérez 01/06/2016 Primary [place] Physician: NANDA OH MD [address] / [facility] [address] documented in this encounter Discharge Instructions * Discharge Instructions* Magaly Diego PA - 01/06/2016 10:05 AM EDT Scheduled Appointments: ?? Future Appointments?? Provider?? Department?? Dept Phone? 01/21/2016 3:00 PM?? Judith Reinoso MD?? Endocrinology?? [phone]? 01/27/2016 3:30 PM?? Yokasta Esquivel MD; BARIATRIC, [employer]TER [employer] CLIPPER?? General Surgery?? [phone]? Instructions Given to Patient at Discharge: BARIATRIC SURGERY DISCHARGE INFORMATION CONTACT INFORMATION: [phone] Surgeons: Ki Multani Laycock and Bernarda [phone] Bench Patternmaker Metal: [phone] (Monday through Monday, 8:00 AM -5:00 PM) Dietitian: [phone] Non-business hours: [phone], ask for general surgeon communications director FOR EMERGENCIES: CALL 911 (trouble breathing, chest [...] Follow up with primary care provider or adult health clinical nurse specialist in 1-2 weeks.?? Bring meter to [...] 1/2 mL 30 x 5/16 Syrg by [facility].(Non-Drug; Combo Route) route 2 times daily. Using [...] treatment plan with RN and/or primary team, steamer operator and/or diabetes nurse educator, etc). * Magaly [...] Day Post-Op PLAN: NEURO: Pain control with STACK SUPERVISOR Dilaudid; transition to Oxycodone and Tylenol (tablet [...] EDT Record reviewed and patient discussed with medical staffing coordinator. No Enoxaparin at time of discharge planned. Nodischarge needs identified at this time. [facility] Ambulance Paramedic remains available as needed for coordination of care and discharge planning. Elizabeth Weiss RN Pager# [phone] Intensive Care Ambulance Paramedic * Hollis Ruby DO - 01/04/2016 11:06 PM EDT Post-Operative Progress Note Patient: Martha Benoit s/p laparoscopic gastric bypass Surgery: 01/04/2016 [id number] Procedure(s) (LRB): @LAPAROSCOPIC GASTROPLASTY, (N/A) ENDOSCOPY, UPPER [...] suffered no apparent untoward event. Patient location: [facility] Surgical Floor Post-op Consciousness awake, alert [...] expecting some and it is tolerable with STACK SUPERVISOR. She does have significant peripheral neuropathy at baseline and has significant discomfort in her feet forwhich she usually treats with lidoderm patches. Objective: Vitals: Temp: [36.2 ??C (97.2 ??F)-36.9 ??C (98.4 ??F)] Heart Rate: [75-104] Resp: [14-30] BP: (119-161)/(62-135) SpO2: [97 %-100 %] Date 01/04/16 0700 - 01/05/16 0659 Shift [id number] 24 Hour Total I N T A [...] have post-operative bleed/complication - Analgesia adequate with STACK SUPERVISOR. Will add lidoderm patches bilateral LE for [...] C. Complications: retinopathy,?? peripheral autonomic neuropathy, sees coffee brewer for calluses, declines flu shot ? GERD [...] GI ENDOSCOPY performed by ALISA RICHARDS at [facility] ENDOSCOPY?? Anesthesia history (per patient): denies [...] this morning, but had perked up since. STACK SUPERVISOR discontinued. Pain controlled with prn oxycodone. States [...] management and to provide a review of jail diabetes plan. Diabetes History: Martha Benoit has [...] -add-on lab for new baseline HbA1c today. 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 Monitoring - tid ac & hs Diet - low fat/low carb diet Exercise - weight-bearing exercise 30 min/day, as tolerated Thank you for allowing me to participate in the care of this very pleasant and interesting patient. Contact: Judith Reinoso MD, PhD, FACE (pager # [phone]) [facility] Endocrinology , x Consult service will continue [...] abdominal lap sites encouraged to use the STACK SUPERVISOR.. PLAN MOVING FORWARD: Patient will be up [...] Esquivel MD - 01/04/2016 5:00 PM EDT [facility] Operative Note Patient Name: Martha Benoit : [id number] MR#: [id number] Case Date: 01/04/2016 Surgeon: Surgeon(s) and Role: [...] and has had full participation in the [facility] Bariatric Surgery program. Following review of her [...] Endo-ZORAN 45. At this point, a 30 Polish blunt tip bougie was passed by Anesthesia [...] AM EDT TH Visit (TeleHealth) [place] [address] Wyatt Higgins MD [facility] [place] [address] documented as of this encounter Procedures Procedure Name Priority Date/Time Associated Diagnosis Comments BEHAVIORAL HEALTH WORKER SCAN 01/07/2016 12:00 AM EDT POCT GLUCOSE [...] in this encounter Results * SCAN DOC: BEHAVIORAL HEALTH WORKER (01/07/2016 12:00 AM EDT) Anatomical Region Laterality Modality Other Scanning Provider MEDIA MGR SCAN EXT O RDR/RSLT * POCT Glucose (01/06/2016 8:27 AM EDT) Glucose, POC 182 65 - 199 mg/dL [facility] Comment: Supplemental ranges: <140 mg/dL before meals <180 mg/dL all other times of the day Blood specimen (specimen) 01/06/2016 8:27 AM EDT 01/06/2016 8:27 AM EDT Yokasta Esquivel MD POINT OF CARE TEST ORDERABLES Performing Organization Address City/[facility]/ZIP Co de Phone Number [facility] [place] [address] * POCT Glucose (01/06/2016 7:05 AM EDT) Glucose, POC 194 65 - 199 mg/dL [facility] Comment: Supplemental ranges: <140 mg/dL before meals <180 mg/dL all other times of the day Blood specimen (specimen) 01/06/2016 7:05 AM EDT 01/06/2016 7:05 AM EDT Yokasta Esquivel MD POINT OF CARE TEST ORDERABLES [facility] [place] [address] * (ABNORMAL) Differential, Automated (01/06/2016 6:50 AM EDT) Neutrophil % 73.0 % [facility] Neutrophil Absolute 8.38(H) 1.50 - 6.30 x10(3)/[facility] Lymph % 17.8 % [facility] Lymphocytes Abs 2.0 1.0 - 3.6 x10(3)/[facility] Monocyte % 7.0 % [facility] Monocyte Abs 0.8 0.2 - 1.0 x10(3)/[facility] Eos % 1.7 % [facility] Eosinophils Abs 0.2 0.0 - 0.5 x10(3)/[facility] Basophil % 0.2 % [facility] Baso Absolute 0.0 0.0 - 0.2 x10(3)/[facility] Immature Gran % 0.30 % [facility] Comment: Immature granulocytes(IG's)percentage and absolute count will include metamyelocytes, myelocytes, and promyelocytes. Blood smears from CBCs yielding IG's will be scanned manually for concordance. If this scan disagrees with the automated IG or if promyelocytes are noted, a manual differential will be performed. Immature Gran Absolute 0.03 0.00 - 0.05 x10(3)/[facility] Blood specimen (specimen) 01/06/2016 6:50 AM EDT 01/06/2016 7:08 AM EDT Narrative Resulting Agency Comment Spec In Lab Yokasta Esquivel MD HEMATOLOGY ORDERABL ES [facility] [place] [address] * (ABNORMAL) Hemogram (01/06/2016 6:50 AM EDT) White Blood Cell 11.5(H) 4.0 - 10.0 x10(3)/[facility] Red Blood Cell 4.20 3.93 - 5.22 x10(6)/[facility] Hemoglobin 11.1(L) 11.2 - 15.7 gm/dL [facility] Hematocrit 35.2 34.0 - 45.0 % [facility] Mean Cell Volume 83.8 79.0 - 94.0 fL [facility] Mean Cell Hemoglobin 26.4(L) 26.6 - 32.2 pg [facility] Mean Cell Hemoglobin Concentration 31.5(L) 32.0 - 36.5 gm/dL [facility] Platelet 200 145 - 370 x10(3)/mc L [facility] RDW Standard Deviation 43.4 35.0 - 46.0 fL [facility] RDW coefficient of variation 14.3 10.9 - 14.4 % [facility] Mean Platelet Volume 11.2 9.0 - 12.0 fL [facility] Blood specimen (specimen) 01/06/2016 6:50 AM EDT 01/06/2016 7:08 AM EDT Narrative Resulting Agency Comment Spec In Lab Yokasta Esquivel MD HEMATOLOGY ORDERABL ES [facility] [place] [address] * (ABNORMAL) Basic Metabolic Panel (non-fasting) (01/06/2016 6:50 AM EDT) Glucose 205(H) 65 - 199 mg/dL [facility] Comment:Diabetes: >=200 mg/d L plus symptoms Blood Urea Nitrogen 7(L) 8 - 18 mg/dL [facility] Creatinine 0.35(L) 0.70 - 1.20 mg/dL [facility] Comment: Please note that the pediatric reference intervals supplied above were not validated at [facility]. Results from pediatric patients should be interpreted in conjunction to the patient's age, height and muscle mass. Sodium 138 135 - 145 mmol/L [facility] Potassium 3.5 3.5 - 5.0 mmol/L [facility] Comment: Please note: ??Patients with WBC >100,000 may have falsely elevated Potassium levels. ??For accurate Potassium quantification in these patients send serum separator tube (gold top) for subsequent determinations. ??Contact the Clinical Chemistry Laboratory if there are any questions. Chloride 99 98 - 107 mmol/L [facility] Carbon Dioxide 25 22 - 31 mmol/L [facility] Anion Gap 14 5 - 15 mmol/L [facility] Calcium 8.2(L) 8.5 - 10.5 mg/dL [facility] Est Glomerular Filtration Rate >60 >=60 [facility] Comment: This estimated GFR (eGFR) [...] the following links into your internet browser. [email or web address] Blood specimen (specimen) 01/06/2016 6:50 AM EDT 01/06/2016 7:08 AM EDT Narrative Resulting Agency Comment Spec In Lab Yokasta Esquivel MD CHEMISTRY ORDERABLE S Performing Organization Address City/[facility]/ZIP Co de Phone Number [facility] [place] [address] * POCT Glucose (01/05/2016 8:52 PM EDT) Glucose, POC 147 65 - 199 mg/dL [facility] Comment: Supplemental ranges: <140 mg/dL before meals <180 mg/dL all other times of the day Blood specimen (specimen) 01/05/2016 8:52 PM EDT 01/05/2016 8:52 PM EDT Yokasta Esquivel MD POINT OF CARE TEST ORDERABLES [facility] [place] [address] * POCT Glucose (01/05/2016 4:42 PM EDT) Glucose, POC 168 65 - 199 mg/dL [facility] Comment: Supplemental ranges: <140 mg/dL before meals <180 mg/dL all other times of the day Blood specimen (specimen) 01/05/2016 4:42 PM EDT 01/05/2016 4:42 PM EDT Yokasta Esquivel MD POINT OF CARE TEST ORDERABLES [facility] [place] [address] * (ABNORMAL) POCT Glucose (01/05/2016 11:40 AM EDT) Glucose, POC 204(H) 65 - 199 mg/dL [facility] Comment: Supplemental ranges: <140 mg/dL before meals <180 mg/dL all other times of the day Blood specimen (specimen) 01/05/2016 11:40 AM EDT 01/05/2016 11:40 AM EDT Yokasta Esquivel MD POINT OF CARE TEST ORDERABLES [facility] [place] [address] * (ABNORMAL) POCT Glucose (01/05/2016 7:02 AM EDT) Glucose, POC 231(H) 65 - 199 mg/dL [facility] Comment: Supplemental ranges: <140 mg/dL before meals <180 mg/dL all other times of the day Blood specimen (specimen) 01/05/2016 7:02 AM EDT 01/05/2016 7:02 AM EDT Yokasta Esquivel MD POINT OF CARE TEST ORDERABLES [facility] [place] [address] * (ABNORMAL) Hemoglobin A1c (01/05/2016 5:44 AM EDT) Hemoglobin A1c 8.4(H) 4.3 - 5.6 % [facility] [...] Mellitus, Diabetes Care 2013; 36: Suppl. 1, S67-43 Estimated Average Glucose 194 mg/dL [facility] [...] resources are available on the ADA website: [email or web address] Maurice GODINEZ, Marion J, Miriam R, et al. ??Translating the A1C assay into estimated average glucose values. ??Diabetes Care 2008:31(8):1751-5911. Blood specimen (specimen) Venous Draw / Unknown 01/05/2016 5:44 AM EDT 01/05/2016 10:26 AM EDT Narrative Resulting Agency Comment Spec In Lab Umberto Mcgill MD CHEMISTRY ORDERABLES [facility] [place] [address] * (ABNORMAL) Differential, Automated (01/05/2016 5:44 AM EDT) Neutrophil % 78.3 % [facility] Neutrophil Absolute 9.70(H) 1.50 - 6.30 x10(3)/[facility] Lymph % 14.0 % [facility] Lymphocytes Abs 1.7 1.0 - 3.6 x10(3)/[facility] Monocyte % 7.3 % [facility] Monocyte Abs 0.9 0.2 - 1.0 x10(3)/[facility] Eos % 0.1 % [facility] Eosinophils Abs 0.0 0.0 - 0.5 x10(3)/[facility] Basophil % 0.1 % [facility] Baso Absolute 0.0 0.0 - 0.2 x10(3)/[facility] Immature Gran % 0.20 % [facility] Comment: Immature granulocytes(IG's)percentage and absolute count will include metamyelocytes, myelocytes, and promyelocytes. Blood smears from CBCs yielding IG's will be scanned manually for concordance. If this scan disagrees with the automated IG or if promyelocytes are noted, a manual differential will be performed. Immature Gran Absolute 0.03 0.00 - 0.05 x10(3)/[facility] Blood specimen (specimen) 01/05/2016 5:44 AM EDT 01/05/2016 6:01 AM EDT Narrative Resulting Agency Comment Spec In Lab Umberto Mcgill MD HEMATOLOGY ORDERABLE S [facility] [place] [address] * (ABNORMAL) Hemogram (01/05/2016 5:44 AM EDT) White Blood Cell 12.4(H) 4.0 - 10.0 x10(3)/mc L [facility] Red Blood Cell 4.44 3.93 - 5.22 x10(6)/mc L [facility] Hemoglobin 12.0 11.2 - 15.7 gm/dL [facility] Hematocrit 36.3 34.0 - 45.0 % [facility] Mean Cell Volume 81.8 79.0 - 94.0 fL [facility] Mean Cell Hemoglobin 27.0 26.6 - 32.2 pg [facility] Mean Cell Hemoglobin Concentration 33.1 32.0 - 36.5 gm/dL [facility] Platelet 225 145 - 370 x10(3)/mc L [facility] RDW Standard Deviation 42.9 35.0 - 46.0 fL [facility] RDW coefficient of variation 14.3 10.9 - 14.4 % [facility] Mean Platelet Volume 11.3 9.0 - 12.0 fL [facility] Blood specimen (specimen) 01/05/2016 5:44 AM EDT 01/05/2016 6:01 AM EDT Narrative Resulting Agency Comment Spec In Lab Umberto Mcgill MD HEMATOLOGY ORDERABLE S Performing Organization Address City/[facility]/ZIP Co de Phone Number [facility] [place] [address] * (ABNORMAL) Basic Metabolic Panel (non-fasting) (01/05/2016 5:44 AM EDT) Glucose 236(H) 65 - 199 mg/dL [facility] Comment:Diabetes: >=200 mg/d L plus symptoms Blood Urea Nitrogen 10 8 - 18 mg/dL [facility] Creatinine 0.52(L) 0.70 - 1.20 mg/dL [facility] Comment: Please note that the pediatric reference intervals supplied above were not validated at [facility]. Results from pediatric patients should be interpreted in conjunction to the patient's age, height and muscle mass. Sodium 138 135 - 145 mmol/L [facility] Potassium 3.7 3.5 - 5.0 mmol/L [facility] Comment: Please note: ??Patients with WBC >100,000 may have falsely elevated Potassium levels. ??For accurate Potassium quantification in these patients send serum separator tube (gold top) for subsequent determinations. ??Contact the Clinical Chemistry Laboratory if there are any questions. Chloride 100 98 - 107 mmol/L [facility] Carbon Dioxide 24 22 - 31 mmol/L [facility] Anion Gap 14 5 - 15 mmol/L [facility] Calcium 7.9(L) 8.5 - 10.5 mg/dL [facility] Est Glomerular Filtration Rate >60 >=60 [facility] Comment: This estimated GFR (eGFR) [...] the following links into your internet browser. [email or web address] Blood specimen (specimen) 01/05/2016 5:44 AM EDT 01/05/2016 6:01 AM EDT Narrative Resulting Agency Comment Spec In Lab Umberto Mcgill MD CHEMISTRY ORDERABLES [facility] [place] [address] * (ABNORMAL) POCT Glucose (01/04/2016 11:06 PM EDT) Glucose, POC 214(H) 65 - 199 mg/dL [facility] Comment: Supplemental ranges: <140 mg/dL before meals <180 mg/dL all other times of the day Blood specimen (specimen) 01/04/2016 11:06 PM EDT 01/04/2016 11:06 PM EDT Yokasta Esquivel MD POINT OF CARE TEST ORDERABLES [facility] [place] [address] * (ABNORMAL) POCT Glucose (01/04/2016 8:48 PM EDT) Glucose, POC 258(H) 65 - 199 mg/dL [facility] Comment: Supplemental ranges: <140 mg/dL before meals <180 mg/dL all other times of the day Blood specimen (specimen) 01/04/2016 8:48 PM EDT 01/04/2016 8:48 PM EDT Yokasta Esquivel MD POINT OF CARE TEST ORDERABLES [facility] [place] [address] * (ABNORMAL) POCT Glucose (01/04/2016 5:22 PM EDT) Glucose, POC 218(H) 65 - 199 mg/dL [facility] Comment: Supplemental ranges: <140 mg/dL before meals <180 mg/dL all other times of the day Blood specimen (specimen) 01/04/2016 5:22 PM EDT 01/04/2016 5:22 PM EDT Yokasta Esquivel MD POINT OF CARE TEST ORDERABLES [facility] [place] [address] documented in this encounter Visit Diagnoses Diagnosis [...] EDT 10 mg HYDROmorphone (DILAUDID) 1 mg/mL STACK SUPERVISOR 50 mL Intravenous, STACK SUPERVISOR ONLY, Starting on Mon01/04/16 at 1800, Until [...] ordered, use ondansetron first, prochlorperazine second. Per STACK SUPERVISOR order., Recovery (Recovery-Hospital Unit) Given 01/04/2016 11:20 [...] ordered, use ondansetron first, prochlorperazine second. Per STACK SUPERVISOR order., Recovery (Recovery-Hospital Unit), Routine Given 01/05/2016 [...] on Mon01/05/16 at 0900, Until Discontinued, Routine 08 (Given - Provider: Yasmine Stuart RN)2058 (Given - Provider: Dennis Lomeli RN) 0835 (Given - Provider: Abi Gagnon [...] 2101 (Given - Provider: Dennis Lomeli RN) 0808 (Given - Provider: Yasmine Stuart RN)1200 (Given - Provider: Yasmine Stuart RN)1644 (Given - Provider: Yasmine Stuart RN) 0827 (Given - Provider: Abi Gagnon, BRENDAN) levothyroxine [...] 2104 (Given - Provider: Dennis Lomeli RN) 0819 (Given - Provider: Yasmine Stuart, RN)210 (Given - Provider: Dennis Lomeli RN) 0837 (Given - Provider: Abi Gagnon RN) Continuous Medication Order 01/04/2016 01/05/2016 01/06/2016 HYDROmorphone (DILAUDID) 1 mg/mL STACK SUPERVISOR 50 mL (CANCELED) Intravenous, STACK SUPERVISOR ONLY, Starting on Mon01/04/16 at 1800, Until Mon01/05/16 at 0920, Recovery (Recovery-Hospital Unit) 1753 (New Syringe/Cartridge - Provider: Benedicto Cameron, BRENDAN) 1011 (Stopped - Provider: Carolina Hinkle RN) lactated ringers infusion 1,000 mL (CANCELED) 1,000 mL, at 100 mL/hr, Intravenous, CONTINUOUS, Starting on Mon01/04/16 at 1815, Until Mon01/06/16 at 1300, Recovery (Recovery-Hospital Unit) 1802 (New Bag - Provider: Benedicto Cameron RN) 0357 (New Bag - Provider: Dennis Lomeli RN)1352 (New Bag - Provider: Yasmine Stuart, BRENDAN)2331 (New Bag - Provider: Dennis Lomeli RN) [...] PACU Recovery 1820 (Given - Provider: Benedicto Cameron, BRENDAN) HYDROmorphone (DILAUDID) syringe 0.2-0.4 mg (CANCELED) 0.2-0.4 [...] Benedicto Cameron RN)1736 (Given - Provider: Benedicto Cameron, RN)1743 (Given - Provider: Benedicto Cameron, RN)1748 (Given - Provider: Benedicto Cameron, RN) ondansetron (ZOFRAN) injection 4 mg (CANCELED) 4 mg, Intravenous, EVERY 30 MIN PRN, Starting on Mon01/04/16 at 1621, Until Mon01/04/16 at 1914, Nausea, May repeat 4 mg once in 30 minutes. If multiple antiemetics ordered, use ondansetron first and if ineffective use prochlorperazine second and if ineffective use promethazine, PACU Recovery 1817 (Given - Provider: Benedicto Cameron, BRENDAN) ondansetron (ZOFRAN) injection 4 mg (COMPLETED) 4 mg, Intravenous, EVERY 30 MIN PRN, 2 doses, Starting on Mon01/04/16 at 1938, Until Mon01/04/16 at 2320, Nausea, May repeat dose once in 30 minutes if no relief from previous dose. If multiple antiemetics are ordered, use ondansetron first, prochlorperazine second. Per STACK SUPERVISOR order., Recovery (Recovery-Hospital Unit) 1944 (Given - Provider: Dennis Lomeli RN)2320 (Given - Provider: Dennis Lomeli RN) ondansetron [...] Dennis Lomeli RN) 0625 (Given - Provider: Dennis Lomeli RN) prochlorperazine (COMPAZINE) injection 5 mg (COMPLETED) 5 mg, Intravenous, EVERY 30 MIN PRN, 2 doses, Starting on Mon01/04/16 at 1938, Until Mon01/05/16 at 0602, Nausea, May repeat in 30 minutes if no relief from previous dose. HOLD if patient is sedated. Maximum dose is 40 mg in 24 hours. If multiple antiemetics are ordered, use ondansetron first, prochlorperazine second. Per STACK SUPERVISOR order., Recovery (Recovery-Hospital Unit), Routine 2111 (Given - Provider: Dennis Lomeli RN) 0602 (Given - Provider: Dennis Lomeli RN) promethazine [...] Recovery documented in this encounter Care Teams Front Desk Associate Relationship Specialty Start Date End Date Nanda Oh MD KIRILL D [address] [place] [address] PCP - General 09/14/10 06/06/18 documented as of this encounter
--- OUTSIDE RECORDS SUMMARY | 2024-09-18 16:14 | XMS_ITS | Encounter Summary ---
Author Organization [facility] [place] [address] Care Team Providers Care Rehabilitation Program Manager Name Role Phone Nanda Read MD Primary Care Provider Encounter Details Date Type Department Care Team (Late st Contact Info) Description 11/13/2015 Orders Only [place] [phone] Cathy Dillon APRN [facility] [place] [address] Social History Tobacco Use Types Packs/Day Years [...] AM EDT TH Visit (TeleHealth) [place] [phone] Wyatt Higgins MD [facility] [place] [address] documented as of this encounter Visit Diagnoses Not on filedocumented in this encounter Care Teams Rehabilitation Program Manager Relationship Specialty Start Date End Date Nanda Read MD [facility] [address] [place] [address] PCP - General 09/14/10 06/06/18 documented as of this encounter
--- OUTSIDE RECORDS SUMMARY | 2024-09-18 16:14 | XMS_ITS | Encounter Summary ---
[place] [address] Care Team Providers Care Aws Consultant Name Role Phone Nanda Read MD Primary Care Provider Encounter Details Date Type Department Care Team (Late st Contact Info) Description 01/13/2016 Telephone [place] [phone] Nany Calderon RN Social History Tobacco Use [...] AM EDT TH Visit (TeleHealth) [place] [address] Wyatt Higgins MD [facility] [place] [address] documented as of this encounter Visit Diagnoses Not on filedocumented in this encounter Care Teams Aws Consultant Relationship Specialty Start Date End Date Nanda Read MD [facility] D [address] [place] [address] PCP - General 09/14/10 06/06/18 documented as of this encounter
--- OUTSIDE RECORDS SUMMARY | 2024-09-18 16:14 | XMS_ITS | Encounter Summary ---
[facility] Organization [facility] [place] [address] Care Team Providers Care Publicity Expert Name Role Phone Nanda Read MD Primary Care Provider Reason for Visit * Reason Comments Diabetes Encounter Details Date Type Department Care Team (Late st Contact Info) Description 11/17/2015 3:30 PM EST Office [place] [address] Judith Reinoso MD [facility] [place] [address] Vitamin B12 deficiency Social History Tobacco Use [...] Martha Benoit : 1965 Date: 11/17/2015 PCP: NANDA READ MD Provided by: Judith [...] 1/2 mL 30 x 5/16 Syrg by [facility] [...] low 28-29 range last week on vitD shamar, so she was instructed to increase to [...] AM EDT TH Visit (TeleHealth) [place] [address] Wyatt Higgins MD [facility] [place] [place] [address] documented as of this encounter Visit Diagnoses [...] Deltoid documented in this encounter Care Teams Publicity Expert Relationship Specialty Start Date End Date Nanda Read MD [facility] D [address] [place] [address] PCP - General 09/14/10 06/06/18 documented as of this encounter
--- OUTSIDE RECORDS SUMMARY | 2024-09-18 16:14 | XMS_ITS | Encounter Summary ---
Author Organization [facility] [place] [address] Care Team Providers Care Farm Appraiser Name Role Phone Nanda Read MD Primary Care Provider [phone] Encounter Details Date Type Department Care Team (Late st Contact Info) Description 11/17/2015 1:00 PM EST Office Visit [place] [address] Rufina Vargas, PT [facility] PHYSICAL MEDICINE & [place] [address] Foot drop, bilateral Social History Tobacco Use [...] GI ENDOSCOPY performed by ALISA RICHARDS at [facility] ??? Pro upper gi endoscopy, biopsy 11/16/2011 EGD WITH BIOPSY performed by ALISA RICHARDS at [facility] ??? Tubal ligation ??? Cystoscopy Left 01/15/1995 stent placement ??? Lithotripsy Left 12/26/2000 ??? Cystoscopy Left 04/03/2001 ??? Cystoscopy Left 08/26/2001 ??? Cystoscopy Left 10/31/2000 ??? Heel spur surgery Left ??? Pro upper gi endoscopy, diagnostic N/A 11/04/2015 EGD, UPPER GI ENDOSCOPY performed by Kisha Doss MD at [facility] Social History: Lives with her young [...] places throughout the night. Goes to the ent consultant every 6 months. Stairs at home: ramp [...] minutes Total timed interventions: 0 minutes Pager: [phone] RUFINA VARGAS PT Physical Therapy Rehabilitation Department [...] AM EDT TH Visit (TeleHealth) [place] [address] Wyatt Higgins MD [facility] [place] [address] documented as of this encounter Visit Diagnoses Diagnosis Foot drop, bilateral Other acquired deformity of ankle and foot documented in this encounter Care Teams Farm Appraiser Relationship Specialty Start Date End Date Nanda Read MD [facility] [address] [place] [address] PCP - General 09/14/10 06/06/18 documented as of this encounter
--- OUTSIDE RECORDS SUMMARY | 2024-09-18 16:14 | XMS_ITS | Encounter Summary ---
Author Organization [facility] [place] [id number] Care Team Providers Care Wastewater Plant Operator Name Role Phone Nanda Read MD Primary Care Provider [phone] Encounter Details Date Type Department Care Team (Late st Contact Info) Description 01/24/2016 12:05 AM EDT - 01/24/2016 11:59 PM EDT Hospital Encounter Radiology Library at [facility] [place] [id number] [facility] Temporary Pain Discharge Disposition: Home Social History [...] 1/2 mL 30 x 516 Syrg by Mis.(Non-Drug; Combo Route) route 2 times daily. Using with insulin bid 1 Box 4 06/03/2011 04/06/2017 documented as of this encounter Plan of Treatment Upcoming Encounters Date Type Department Care Team (Late st Contact Info) Description 02/19/2025 9:00 AM EDT TH Visit (TeleHealth) [place] [address] Wyatt Higgins MD [facility] [place] [address] documented as of this encounter Procedures Procedure Name Priority Date/Time Associated Diagnosis Comments FILM LIBRARY STORAGE ONLY CT ABDOMEN Routine 01/24/2016 12:05 AM EDT Pain documented in this encounter Results * Film Library- Storage Only CT Abdomen (01/24/2016 12:05 AM EDT) Narrative [facility] - 01/25/2016 11:34 AM EDT See PACS for result report. [facility] ER[facility]LES [place], [place] documented in this encounter Visit Diagnoses Diagnosis Pain Generalized pain documented in this encounter Care Teams Wastewater Plant Operator Relationship Specialty Start Date End Date Nanda Read MD [facility] [address] [place] [address] PCP - General 09/14/10 06/06/18 documented as of this encounter
--- OUTSIDE RECORDS SUMMARY | 2024-09-18 16:14 | XMS_ITS | Encounter Summary ---
[place] [address] Care Team Providers Care Labor Conciliator Name Role Phone Nanda Read MD Primary Care Provider [phone] Encounter Details Date Type Department Care Team (Late st Contact Info) Description 12/23/2015 Telephone [place] [phone] Chelsea Andrews LPN Social History Tobacco Use [...] but will discuss this with the provider director of collections and get back to her. Patient agrees with this plan of care. documented in this encounter Plan of Treatment Upcoming Encounters Date Type Department Care Team (Late st Contact Info) Description 02/19/2025 9:00 AM EDT TH Visit (TeleHealth) [place] [address] Wyatt Higgins MD [facility] [place] [address] documented as of this encounter Visit Diagnoses Not on filedocumented in this encounter Care Teams Labor Conciliator Relationship Specialty Start Date End Date Nanda Read MD [facility] D [address] [place], [place] [address] PCP - General 09/14/10 06/06/18 documented as of this encounter
--- OUTSIDE RECORDS SUMMARY | 2024-09-18 16:14 | XMS_ITS | Encounter Summary ---
Author Organization [facility] Address [facility] [place] [address] Care Team Providers Care Solar Manufacturer'S Representative Name Role Phone Nanda Read MD Primary Care Provider [phone] Reason for Visit * Auth/Cert Specialty Diagnoses / Procedures Referred By Patricio monsivais Referred To Contact Diagnoses preoperative bariatric surgery, history of gastric ulcers and hiatal herni. rule out upper GI pathology and H pylori Procedures PRO UPPER GI ENDOSCOPY, DIAGNOSTIC EGD, UPPER GI ENDOSCOPY Referral ID Status Reason Start Date Expiration Date Visits Re quested Visits Authorized [id number] 1 1 Encounter Details Date Type Department Care Team (Late st Contact Info) Description 11/04/2015 11:15 AM EST - 11/04/2015 11:45 AM EST Surgery [place] [address] Kisha Doss MD [facility] [address] EGD, UPPER GI ENDOSCOPY (WRVU 2.09) Social [...] better as expected. Monday-Monday Same Day Endo [phone] Otherwise contact [phone] and ask to speak to the marine water tender engineering consultant Follow-up care is a [place] part of [...] 1/2 mL 30 x 5/16 Syrg by [facility].(Non-Drug; Combo Route) route 2 times [...] AM EDT TH Visit (TeleHealth) [place] [address] Wyatt Higgins MD [facility] [place] [address] documented as of this encounter Procedures Procedure [...] Surgical Pathology Report (11/04/2015 11:38 AM EST) Final Diagnosis [id number] ? Location: The signing pathologist has (i) [...] ng: (T1) ??ejr 11/05/2015 11:24 AM EST [facility] GI Biopsy 11/04/2015 11:3 8 AM EST 11/04/2015 11:38 AM EST Kisha Doss MD PATHOLOGY/CYTOLOGY O SHAYAN Performing Organization Address City/State/[facility] Co de Phone Number [facility] [place] [address] * Specimen to Pathology (surgical or derm) (11/04/2015 11:38 AM EST) AP Specimen 11/04/2015 11:3 8 AM EST 11/04/2015 11:38 AM EST Narrative [facility] - 11/04/2015 11:38 AM EST Specimen requisition ordered. ??Separate Pathology report to follow Kisha Doss MD PATHOLOGY/CYTOLOGY O RDERABLES [facility] * POCT Glucose (11/04/2015 11:01 AM EST) Glucose, POC 144 65 - 199 mg/dL [facility] Comment: Supplemental ranges: <140 mg/dL before meals <180 mg/dL all other times of the day Blood specimen (specimen) 11/04/2015 11:01 AM EST 11/04/2015 11:01 AM EST Kisha Doss MD POINT OF CARE TEST O RDERABLES [facility] * POCT Fingerstick Glucose (11/04/2015) Glucose, POC 144 60 - 199 mg/dl 11/04/2015 Kisha Doss MD POINT OF CARE TEST O [facility] documented in this encounter Visit Diagnoses Not [...] RN) documented in this encounter Care Teams Solar Manufacturer'S Representative Relationship Specialty Start Date End Date Nanda Read MD [facility] D [address] [place] [address] PCP - General 09/14/10 06/06/18 documented as of this encounter
--- OUTSIDE RECORDS SUMMARY | 2024-09-18 16:14 | XMS_ITS | Encounter Summary ---
Author Organization [facility] [place] [address] Care Team Providers Care Facility Specialist Name Role Phone Nanda Oh MD Primary Care Provider [phone] Reason for Visit * Auth/Cert - Closed Specialty Diagnoses / Procedures Referred By Patricio monsivais Referred To Contact Diagnoses DEHYDRATION Procedures EMERGENCY IPI Referral ID Status Reason Start Date Expiration Date Visits Re quested Visits Authorized [id number] Closed 1 1 Encounter Details Date Type Department Care Team (Latest Contact Info) Description 01/25/2016 1:31 PM EDT - 01/27/2016 1:10 PM EDT Hospital Encounter [address] [place] [address] Jose Mai MD [facility] [place] [address] Discharge Disposition: Home Social History Tobacco Use [...] Syrg Commonly known as: INSULIN SYRINGE by [facility].(Non-Drug; Combo Route) route 2 times daily. [...] Dept Phone 02/02/2016 3:30 PM Cathy Dillon, YOUTH CORRECTIONS OFFICER; BARIATRIC, GENERAL PRACTICE General Surgery [phone] Instructions Given to Patient at Discharge: Minimally Invasive Surgery Discharge Instructions If you have any questions or concerns, please call [phone] before 5pm Monday through Monday; or [phone] after 5pm and on weekends. Diet: You [...] 01/29/2016 Primary Naheed Physician: NANDA OH MD [facility] [address] / [facility] [address] documented in this encounter Discharge Instructions * Discharge Instructions* Magaly Diego PA - 01/27/2016 8:44 AM EDT Scheduled Appointments: Future Appointments Provider Department Dept Phone 02/02/2016 3:30 PM Cathy Dillon APRN; BARIATRIC, GENERAL PRACTICE General Surgery [phone] Instructions Given to Patient at Discharge: Minimally Invasive Surgery Discharge Instructions If you have any questions or concerns, please call [phone] before 5pm Monday through Monday; or [phone] after 5pm and on weekends. Diet: You [...] 1/2 mL 30 x 5/16 Syrg by [facility].(Non-Drug; Combo Route) route 2 times daily. [...] Surgery 27[address] CM Hilda Stokes RN,BSN pgr [phone] Office of Care Management (OCM) / [place] Worker(CM)/ Initial Assessment Discussed patient with Provider Team. [...] Syrg Commonly known as: INSULIN SYRINGE by [facility].(Non-Drug; Combo Route) route 2 times daily. [...] GI ENDOSCOPY performed by ALISA RICHARDS at [facility] ENDOSCOPY ??? Pro upper gi endoscopy, biopsy 11/16/2011 EGD WITH BIOPSY performed by ALISA RICHARDS at [facility] ENDOSCOPY ??? Tubal ligation ??? Cystoscopy Left 01/15/1995 stent placement ??? Lithotripsy Left 12/26/2000 ??? Cystoscopy Left 04/03/2001 ??? Cystoscopy Left 08/26/2001 ??? Cystoscopy Left 10/31/2000 ??? Heel spur surgery Left ??? Pro upper gi endoscopy, diagnostic N/A 11/04/2015 EGD, UPPER GI ENDOSCOPY performed by Kisha Doss MD at [facility] ENDOSCOPY ??? Pro lap gastric bypass/reinaldo-en-y N/A 01/04/2016 @LAPAROSCOPIC GASTROPLASTY, performed by Jose Mai MD at [facility] MAIN OR ??? Pro upper gi endoscopy, diagnostic N/A 01/04/2016 ENDOSCOPY, UPPER GI, DIAGNOSTIC, WITH OR WITHOUT SPECIMENS performed by Jose Mai MD at [facility] MAIN OR Vital Signs: Filed Vitals: [...] AM EDT TH Visit (TeleHealth) [place] [id number] Wyatt Higgins MD [facility] [place] [address] documented as of this encounter Procedures Procedure [...] (ABNORMAL) POCT Glucose (01/27/2016 11:01 AM EDT) Glucose, POC 217(H) 65 - 199 mg/dL [facility] Comment: Supplemental ranges: <140 mg/dL before meals <180 mg/dL all other times of the day Blood specimen (specimen) 01/27/2016 11:01 AM EDT 01/27/2016 11:01 AM EDT Jose Mai MD POINT OF CARE TEST ORDERABLES [facility] [place] [address] * POCT Glucose (01/27/2016 7:01 AM EDT) Glucose, POC 194 65 - 199 mg/dL [facility] Comment: Supplemental ranges: <140 mg/dL before meals <180 mg/dL all other times of the day Blood specimen (specimen) 01/27/2016 7:01 AM EDT 01/27/2016 7:01 AM EDT Jose Mai MD POINT OF CARE TEST ORDERABLES [facility] [place] [address] * (ABNORMAL) POCT Glucose (01/27/2016 3:59 AM EDT) Glucose, POC 202(H) 65 - 199 mg/dL [facility] Comment: Supplemental ranges: <140 mg/dL before meals <180 mg/dL all other times of the day Blood specimen (specimen) 01/27/2016 3:59 AM EDT 01/27/2016 3:59 AM EDT Jose Mai MD POINT OF CARE TEST ORDERABLES [facility] [place] [address] * POCT Glucose (01/26/2016 11:48 PM EDT) Glucose, POC 190 65 - 199 mg/dL [facility] Comment: Supplemental ranges: <140 mg/dL before meals <180 mg/dL all other times of the day Blood specimen (specimen) 01/26/2016 11:48 PM EDT 01/26/2016 11:48 PM EDT Jose Mai MD POINT OF CARE TEST ORDERABLES [facility] [place] [address] * POCT Glucose (01/26/2016 6:52 PM EDT) Glucose, POC 181 65 - 199 mg/dL [facility] Comment: Supplemental ranges: <140 mg/dL before meals <180 mg/dL all other times of the day Blood specimen (specimen) 01/26/2016 6:52 PM EDT 01/26/2016 6:52 PM EDT Jose Mai MD POINT OF CARE TEST ORDERABLES [facility] [place] [address] * POCT Glucose (01/26/2016 4:14 PM EDT) Glucose, POC 176 65 - 199 mg/dL [facility] Comment: Supplemental ranges: <140 mg/dL before meals <180 mg/dL all other times of the day Blood specimen (specimen) 01/26/2016 4:14 PM EDT 01/26/2016 4:14 PM EDT Jose Mai MD POINT OF CARE TEST ORDERABLES [facility] [place] [address] * (ABNORMAL) POCT Glucose (01/26/2016 11:07 AM EDT) Glucose, POC 202(H) 65 - 199 mg/dL [facility] Comment: Supplemental ranges: <140 mg/dL before meals <180 mg/dL all other times of the day Blood specimen (specimen) 01/26/2016 11:07 AM EDT 01/26/2016 11:07 AM EDT Jose Mai MD POINT OF CARE TEST ORDERABLES [facility] [place] [address] * XR Fluoro Barium Swallow (01/26/2016 10:18 [...] N/V. Please assess for leak. TECHNIQUE: Initial quality assurance associate radiograph of the chest and abdomen was [...] acute abdominal series dated 01/24/2016 FINDINGS: Initial quality assurance associate radiograph and quality assurance associate images demonstrated residual contrast within the visualized [...] of N/V. Please assess forleak. TECHNIQUE: Initial quality assurance associate radiograph of the chest and abdomen wasperformed. [...] 01/24/2016, acute abdominal seriesdated 01/24/2016 FINDINGS: Initial quality assurance associate radiograph and quality assurance associate images demonstrated residual contrastwithin the visualized ascending, [...] * POCT Glucose (01/26/2016 6:56 AM EDT) Glucose, POC 172 65 - 199 mg/dL [facility] Comment: Supplemental ranges: <140 mg/dL before meals <180 mg/dL all other times of the day Blood specimen (specimen) 01/26/2016 6:56 AM EDT 01/26/2016 6:56 AM EDT Jose Mai MD POINT OF CARE TEST ORDERABLES Performing Organization Address City/[facility]/ZIP Co de Phone Number [facility] [place] [address] * POCT Glucose (01/26/2016 4:39 AM EDT) Glucose, POC 185 65 - 199 mg/dL [facility] Comment: Supplemental ranges: <140 mg/dL before meals <180 mg/dL all other times of the day Blood specimen (specimen) 01/26/2016 4:39 AM EDT 01/26/2016 4:39 AM EDT Jose Mai MD POINT OF CARE TEST ORDERABLES Performing Organization Address City/[facility]/ZIP Co de Phone Number [facility] [place] [address] * (ABNORMAL) POCT Glucose (01/25/2016 11:27 PM EDT) Glucose, POC 203(H) 65 - 199 mg/dL [facility] Comment: Supplemental ranges: <140 mg/dL before meals <180 mg/dL all other times of the day Blood specimen (specimen) 01/25/2016 11:27 PM EDT 01/25/2016 11:27 PM EDT Jose Mai MD POINT OF CARE TEST ORDERABLES Performing Organization Address City/[facility] Co de Phone Number [facility] [place] [address] * POCT Glucose (01/25/2016 7:06 PM EDT) Glucose, POC 170 65 - 199 mg/dL [facility] Comment: Supplemental ranges: <140 mg/dL before meals <180 mg/dL all other times of the day Blood specimen (specimen) 01/25/2016 7:06 PM EDT 01/25/2016 7:06 PM EDT Jose Mai MD POINT OF CARE TEST ORDERABLES Performing Organization Address [facility] Co de Phone Number [facility] [place] [address] * POCT Glucose (01/25/2016 5:13 PM EDT) Glucose, POC 179 65 - 199 mg/dL [facility] Comment: Supplemental ranges: <140 mg/dL before meals <180 mg/dL all other times of the day Blood specimen (specimen) 01/25/2016 5:13 PM EDT 01/25/2016 5:13 PM EDT Jose Mai MD POINT OF CARE TEST ORDERABLES Performing Organization Address City/[facility] Co de Phone Number [facility] [place] [address] * Differential, Automated (01/25/2016 2:49 PM EDT) Neutrophil % 67.3 % [facility] Neutrophil Absolute 5.81 1.50 - 6.30 x10(3)/mcL [facility] Lymph % 23.9 % [facility] Lymphocytes Abs 2.1 1.0 - 3.6 x10(3)/[facility] Monocyte % 7.3 % [facility] Monocyte Abs 0.6 0.2 - 1.0 x10(3)/[facility] Eos % 0.7 % [facility] Eosinophils Abs 0.1 0.0 - 0.5 x10(3)/[facility] Basophil % 0.6 % [facility] Baso Absolute 0.0 0.0 - 0.2 x10(3)/[facility] Immature Gran % 0.20 % [facility] Comment: Immature granulocytes(IG's)percentage and absolute count will include metamyelocytes, myelocytes, and promyelocytes. Blood smears from CBCs yielding IG's will be scanned manually for concordance. If this scan disagrees with the automated IG or if promyelocytes are noted, a manual differential will be performed. Immature Gran Absolute 0.02 0.00 - 0.05 x10(3)/[facility] Blood specimen (specimen) 01/25/2016 2:49 PM EDT 01/25/2016 2:59 PM EDT Narrative Resulting Agency Comment Spec In Lab Jose Mai MD HEMATOLOGY ORDERABL ES Performing Organization Address City/State/[facility] Co de Phone Number [facility] [place] [address] * (ABNORMAL) Hemogram (01/25/2016 2:49 PM EDT) White Blood Cell 8.6 4.0 - 10.0 x10(3)/ L [facility] Red Blood Cell 5.10 3.93 - 5.22 x10(6)/ L [facility] Hemoglobin 13.5 11.2 - 15.7 gm/dL [facility] Hematocrit 41.1 34.0 - 45.0 % [facility] Mean Cell Volume 80.6 79.0 - 94.0 fL [facility] Mean Cell Hemoglobin 26.5(L) 26.6 - 32.2 pg [facility] Mean Cell Hemoglobin Concentration 32.8 32.0 - 36.5 gm/dL [facility] Platelet 204 145 - 370 x10(3)/mc L [facility] RDW Standard Deviation 44.5 35.0 - 46.0 fL [facility] RDW coefficient of variation 15.3(H) 10.9 - 14.4 % [facility] Mean Platelet Volume 11.5 9.0 - 12.0 fL [facility] Blood specimen (specimen) 01/25/2016 2:49 PM EDT 01/25/2016 2:59 PM EDT Narrative Resulting Agency Comment Spec In Lab Jose Mai MD HEMATOLOGY ORDERABL ES Performing Organization Address City/State/[facility] Co de Phone Number [facility] [place] [phone] * (ABNORMAL) Glucose, fasting (01/25/2016 2:49 PM EDT) Glucose Fasting 218(H) 65 - 99 mg/dL [facility] Comment: ?Fasting* Glucose Interpretive Criteria Normal [...] of Diabetes Mellitus, Position Statement from the [place] [employer]. ??Diabetes Care, Volume 33, Supplement 1, Oct 2009 Blood specimen (specimen) 01/25/2016 2:49 PM EDT 01/25/2016 2:59 PM EDT Narrative Resulting Agency Comment Spec In Lab Jose Mai MD CHEMISTRY ORDERABLE S Performing Organization Address [facility] Co de Phone Number [facility] [place] [address] * (ABNORMAL) Creatinine (01/25/2016 2:49 PM EDT) Creatinine 0.41(L) 0.70 - 1.20 mg/dL [facility] Comment: Please note that the pediatric reference intervals supplied above were not validated at [facility]. Results from pediatric patients should be interpreted in conjunction to the patient's age, height and muscle mass. Est Glomerular Filtration Rate >60 >=60 [facility] Comment: This estimated GFR [...] the following links into your internet browser. [email or web address] Blood specimen (specimen) 01/25/2016 2:49 PM EDT 01/25/2016 2:59 PM EDT Narrative Resulting Agency Comment Spec In Lab Jose Mai MD CHEMISTRY ORDERABLE S Performing Organization Address [facility] Co de Phone Number [facility] [place] [address] * (ABNORMAL) BUN (01/25/2016 2:49 PM EDT) Blood Urea Nitrogen 2(L) 8 - 18 mg/dL [facility] Blood specimen (specimen) 01/25/2016 2:49 PM EDT 01/25/2016 2:59 PM EDT Narrative Resulting Agency Comment Spec In Lab Jose Mai MD CHEMISTRY ORDERABLE S Performing Organization Address City/[facility]/ZIP Co de Phone Number [facility] [place] [address] * (ABNORMAL) Electrolytes panel (01/25/2016 2:49 PM EDT) Sodium 137 135 - 145 mmol/L [facility] Potassium 3.8 3.5 - 5.0 mmol/L [facility] Comment: Please note: ??Patients with WBC >100,000 may have falsely elevated Potassium levels. ??For accurate Potassium quantification in these patients send serum separator tube (gold top) for subsequent determinations. ??Contact the Clinical Chemistry Laboratory if there are any questions. Chloride 99 98 - 107 mmol/L [facility] Carbon Dioxide 20(L) 22 - 31 mmol/L [facility] Anion Gap 18(H) 5 - 15 mmol/L [facility] Blood specimen (specimen) 01/25/2016 2:49 PM EDT 01/25/2016 2:59 PM EDT Narrative Resulting Agency Comment Spec In Lab Jose Mai MD CHEMISTRY ORDERABLE S Performing Organization Address [facility]/ZIP Co de Phone Number [facility] [place] [address] documented in this encounter Visit Diagnoses Diagnosis [...] on Mon01/25/16 at 1700, Until Discontinued, Routine 1714 (Given - Provider: Johanne Cesar) 0826 (Given - Provider: Nany Sibley RN) 0805 (Given - Provider: Margi Romero, BRENDAN) glipiZIDE [...] Johanne Cesar)2027 (Given - Provider: Paul Callejas RN)233 (Given - Provider: Paul Callejas RN) 0442 (Given - Provider: Paul Callejas RN)0802 (Given - Provider: Nany Sibley RN)121 (Given - Provider: Ilsa Christie RN)171 (Given - Provider: Ilsa Christie RN)195 (Given - Provider: Paul Callejas RN)2358 (Given - Provider: Paul Callejas RN) 0430 (Given - Provider: Paul Callejas RN)0805 (Given - Provider: Margi Romero RN)1157 (Given - Provider: Margi Romero RN) iohexol [...] and then remove for 12 hours, Routine 171 (Patch Applied - Provider: Johanne Cesar - [...] Johanne Cesar) 0820 (Given - Provider: Nany Sibley RN) 0805 (Given - Provider: Margi Romero, BRENDAN) sodium chloride 0.9 % flush 5 mL (CANCELED) 5 mL, Intravenous, 2 TIMES DAILY, First dose on Mon01/25/16 at 2100, Until Discontinued, Recovery (Recovery-Hospital Unit), Routine 203 (Given - Provider: Paul Callejas, RN) 0820 (Given - Provider: Nany Sibley, BRENDAN)2000 (Given - Provider: Paul Callejas, BRENDAN) 0806 (Given - Provider: Margi Romero, BRENDAN) Continuous Medication Order 01/25/2016 01/26/2016 01/27/2016 lactated ringers infusion (CANCELED) 125 mL/hr, Intravenous, CONTINUOUS, Starting on Mon01/25/16 at 1500, Until Mon01/27/16 at 0704, Recovery (Recovery-Hospital Unit) 1505 (New Bag - Provider: Johanne Cesar)2222 (New Bag - Provider: Paul Callejas, BRENDAN) 1402 (New Bag - Provider: Ilsa Christie RN)2157 (New Bag - Provider: Paul Callejas, BRENDAN) 0604 (New Bag - Provider: Paul Callejas, BRENDAN)0819 (Stopped - Provider: Margi Romero, RN) PRN Medication Order 01/25/2016 01/26/2016 01/27/2016 LORazepam (ATIVAN) injection 0.5 mg (CANCELED) 0.5 mg, Intravenous, EVERY 4 HOURS PRN, Starting on Mon01/25/16 at 1501, Until Mon01/27/16 at 1510, Anxiety, Nausea, Vomiting, Routine 1851 (Given - Provider: Johanne Cesar)2329 (Given - Provider: Paul Callejas, BRENDAN) 0819 (Given - Provider: Nany Sibley, BRENDAN)2018 (Given - Provider: Destiny Zuniga RN) 0241 (Given - Provider: Desitny Zuniga RN)1232 (Given - Provider: Margi Romero RN) ondansetron (ZOFRAN) injection 4 mg (CANCELED) 4 mg, Intravenous, EVERY 8 HOURS PRN, Starting on Mon01/25/16 at 2036, Until Mon01/27/16 at 1510, Nausea, Use oral ondansetron first. 2043 (Given - Provider: Paul Callejas RN) 900 (Given - Provider: Ilsa Christie RN) 013 (Given - Provider: Paul Callejas RN) ondansetron (ZOFRAN-ODT) oral disintegrating tablet 4 mg 4 mg, Oral, EVERY 8 HOURS PRN, Starting on Mon01/26/16 at 1344, Until Mon01/27/16 at 1510, Nausea, Attempt this one prior to IV administration. May use 4mg of IV if no relief within 30 minutes., Routine 171 (Given - Provider: Ilsa Christie RN) 012 (Not Given - Provider: Paul Callejas [...] patch documented in this encounter Care Teams Facility Specialist Relationship Specialty Start Date End Date Nanda Oh MD [facility] [address] [place] [address] PCP - General 09/14/10 06/06/18 documented as of this encounter
--- OUTSIDE RECORDS SUMMARY | 2024-09-18 16:14 | XMS_ITS | Encounter Summary ---
Author Organization [facility] [place] [address] Care Team Providers Care Customer Service Trainer Name Role Phone Nanda Read MD Primary Care Provider [phone] Encounter Details Date Type Department Care Team (Late st Contact Info) Description 12/02/2015 External Results Radiology Library at [facility] [place] [address] Provider, Scanning Social History Tobacco Use Types [...] AM EDT TH Visit (TeleHealth) [facility] [place] [address] Wyatt Higgins MD [facility] [place] [address] documented as of this encounter Procedures Procedure Name Priority Date/Time Associated Diagnosis Comments MAMMOGRAM SCAN Routine 11/11/2015 documented in this encounter Results * Scan Doc: Mammogram (11/11/2015) Anatomical Region Laterality Modality Other Scanning Provider MEDIA MGR SCAN EXT O RDR/RSLT documented in this encounter Visit Diagnoses Not on filedocumented in this encounter Care Teams Customer Service Trainer Relationship Specialty Start Date End Date Nanda Read MD [facility] [address] [place] [address] PCP - General 09/14/10 06/06/18 documented as of this encounter
--- OUTSIDE RECORDS SUMMARY | 2024-09-18 16:14 | XMS_ITS | Encounter Summary ---
Author Organization [facility] [place] [address] Care Team Providers Care Residential Roofer Helper Name Role Phone Nanda Read MD Primary Care Provider [phone] Encounter Details Date Type Department Care Team (Late st Contact Info) Description 11/16/2015 Telephone [place] [address] Nany Tai, RD [facility] [place] [address] Social History Tobacco Use Types Packs/Day Years [...] AM EDT TH Visit (TeleHealth) [place] [address] Wyatt Higgins MD [facility] [place] [address] documented as of this encounter Visit Diagnoses Not on filedocumented in this encounter Care Teams Residential Roofer Helper Relationship Specialty Start Date End Date Nanda Read MD [facility] [address] [place] [address] PCP - General 09/14/10 06/06/18 documented as of this encounter
--- OUTSIDE RECORDS SUMMARY | 2024-09-18 16:14 | XMS_ITS | Encounter Summary ---
[facility] [place] [address] Care Team Providers Care Counseling Psychologist Name Role Phone Nanda Read MD Primary Care Provider [phone] Encounter Details Date Type Department Care Team (Late st Contact Info) Description 11/17/2015 3:00 PM EST Office [place] [address] Jose Mai MD [facility] [place] [address] Morbid obesity due to excess calories Social [...] 49-year-old female who is participating in the [facility] Bariatric Surgery Program that I am now seeing for possible bariatric surgery. She is a woman that has had full participation in the [facility] program. She actually started off in the [...] with her today, the entire time in [id number] conversation regarding reviewing the patient information booklet [...] AM EDT TH Visit (TeleHealth) [place] [address] Wyatt Higgins MD [facility] [place] [address] documented as of this encounter Visit Diagnoses Diagnosis Morbid obesity due to excess calories documented in this encounter Care Teams Counseling Psychologist Relationship Specialty Start Date End Date Nanda Read MD [facility] [address] [place] [address] PCP - General 09/14/10 06/06/18 documented as of this encounter
--- OUTSIDE RECORDS SUMMARY | 2024-09-18 16:14 | XMS_ITS | Encounter Summary ---
Author Organization [facility] [place] [address] Care Team Providers Care Director Clinical Operations Name Role Phone Nanda Read MD Primary Care Provider [phone] Encounter Details Date Type Department Care Team (Late st Contact Info) Description 11/22/2015 Orders [place] [address] Kisha Doss MD [facility] [place] [address] Gastropathy Social History Tobacco Use Types Packs/Day [...] PM EST Martha Benoit [address] [facility] [address] November 22, 2015 Dear : Below are the results from your recent visit: Resulted Orders Surgical Pathology Report Result Value Ref Range Surgical Pathology Report [id number] Location: Surgical Pathology DIAGNOSIS Endoscopic biopsy - [...] Doss MD Section of Gastroenterology & Hepatology [address] [place] [address] documented in this encounter Plan of Treatment Upcoming Encounters Date Type Department Care Team (Late st Contact Info) Description 02/19/2025 9:00 AM EDT TH Visit (TeleHealth) [place] [address] Wyatt Higgins MD [facility] [place] [address] documented as of this encounter Visit Diagnoses Diagnosis Gastropathy Unspecified disorder of stomach and duodenum documented in this encounter Care Teams Director Clinical Operations Relationship Specialty Start Date End Date Nanda Read MD [facility] [address] [place] [address] PCP - General 09/14/10 06/06/18 documented as of this encounter
--- OUTSIDE RECORDS SUMMARY | 2024-09-18 16:15 | XMS_ITS | Encounter Summary ---
[place] [address] Care Team Providers Care Laser Beam Cutter Name Role Phone Nanda Read MD Primary Care Provider [phone] Encounter Details Date Type Department Care Team (Late st Contact Info) Description 05/01/2015 Telephone [place] [phone] Tracy Tavarez LPN Social History Tobacco Use [...] how she is doing and knows tocall [phone] and ask for endo salesperson burial needs should she need assistance over the wekend. documented in this encounter Plan of Treatment Upcoming Encounters Date Type Department Care Team (Late st Contact Info) Description 02/19/2025 9:00 AM EDT TH Visit (TeleHealth) [place] [address] Wyatt Higgins MD [facility] [place] [address] documented as of this encounter Visit Diagnoses Not on filedocumented in this encounter Care Teams Laser Beam Cutter Relationship Specialty Start Date End Date Nanda Read MD [facility] [address] [place] [address] PCP - General 09/14/10 06/06/18 documented as of this encounter
--- OUTSIDE RECORDS SUMMARY | 2024-09-18 16:15 | XMS_ITS | Encounter Summary ---
[facility] [place] [address] Care Team Providers Care White Lead Grinder Name Role Phone Nanda Read MD Primary Care Provider [phone] Reason for Visit * Reason Onset Date Comments Other 07/16/2013 Encounter Details Date Type Department Care Team (Late st Contact Info) Description 07/16/2013 [place] [address] Julio Cesar Wright MD [facility] [place] [address] Other Social History Tobacco Use Types Packs/Day [...] AM EDT TH Visit (TeleHealth) [place] [address] Wyatt Higgins MD [facility] [place] [address] documented as of this encounter Visit Diagnoses Not on filedocumented in this encounter Care Teams White Lead Grinder Relationship Specialty Start Date End Date Nanda Read MD [facility] [address] [place] [address] PCP - General 09/14/10 06/06/18 documented as of this encounter
--- OUTSIDE RECORDS SUMMARY | 2024-09-18 16:15 | XMS_ITS | Encounter Summary ---
Author Organization [facility] [address] Care Team Providers Care Contact Center Analyst Name Role Phone Nanda Read MD Primary Care Provider Reason for Visit * Reason Comments Medication Refill Encounter Details Date Type Department Care Team (Late st Contact Info) Description 08/02/2013 [place] [phone] Judith Reinoso MD [facility] [place] [address] Social History Tobacco Use Types Packs/Day Years [...] AM EDT TH Visit (TeleHealth) [place] [address] Wyatt Higgins MD [facility] [place] [address] documented as of this encounter Visit Diagnoses Not on filedocumented in this encounter Care Teams Contact Center Analyst Relationship Specialty Start Date End Date Nanda Read MD [facility] [address] [place] [address] PCP - General 09/14/10 06/06/18 documented as of this encounter
--- OUTSIDE RECORDS SUMMARY | 2024-09-18 16:15 | XMS_ITS | Encounter Summary ---
Author Organization [facility] [place] [address] Care Team Providers Care Jacquard Plate Maker Name Role Phone Nanda Read MD Primary Care Provider [phone] Reason for Visit * Reason Onset Date Comments Medication Refill 07/17/2012 Encounter Details Date Type Department Care Team (Late st Contact Info) Description 07/17/2012 [place] [phone] Judith Rienoso MD [facility] [place] [address] Social History Tobacco Use Types Packs/Day Years [...] TH Visit (TeleHealth[place] [address] Wyatt Higgins MD [facility] [place] [address] documented as of this encounter Visit Diagnoses Not on filedocumented in this encounter Care Teams Jacquard Plate Maker Relationship Specialty Start Date End Date Nanda Read MD [facility] [address] [place] [address] PCP - General 09/14/10 06/06/18 documented as of this encounter
--- OUTSIDE RECORDS SUMMARY | 2024-09-18 16:15 | XMS_ITS | Encounter Summary ---
[place] [address] Care Team Providers Care Sewer Tapper Name Role Phone Nanda Oh MD Primary Care Provider [phone] Reason for Referral * Occupational Therapy (Routine) - Closed Specialty Diagnoses / Procedures Referred By Patricio monsivais Referred To Contact Occupational Therapy Diagnoses Peripheral neuropathy due to disorder of metabolism Morbid obesity, unspecified obesity type Impaired mobility and ADLs Cathy Dillon APRN [facility] [place] [address] [facility] [place] [address] Referral ID Status Reason Start Date Expiration Date V isits Requested Visits Authorized [id number] Closed Evaluate and Treat 11/08/2015 11/07/2016 1 1 * Physical Therapy (Routine) - Closed Specialty Diagnoses / Procedures Referred By Patricio monsivais Referred To Contact Physical Therapy Diagnoses Peripheral neuropathy due to disorder of metabolism Morbid obesity, unspecified obesity type Impaired mobility and ADLs Cathy Dillon APRN [facility] [place] [address] [facility] [place] [address] Referral ID Status Reason Start Date Expiration Date V isits Requested Visits Authorized [id number] Closed Evaluate and Treat 11/08/2015 11/07/2016 1 1 Reason for Visit * Reason Comments Morbid Obesity Bariatric Surgery Pr richard preoperative visit #1 Encounter Details Date Type Department Care Team (Latest Contact Info) Description 11/03/2015 11:00 AM EST Office [place] [phone] Cathy Dillon, [facility] [place] [address] Gastroesophageal reflux disease, esophagitis presence not specified; [...] BARIATRIC SURGERY PROGRAM FIRST VISIT Contact information: [facility] Admin coordinator Rosey: [phone] Dietitian: [phone] Surgeons/ nurse practitioner: [phone] Nurse line: [phone] Recommendations to do list after today's visit: [...] in the Parking Garage. Location: Go to [facility] [facility] Area 4T. Date: tomorrow Time: arrive at: 10:15 AM Procedure starts ~1 hour after you arrive. Pending information: 1. Bring in the durable power of attorney at law Bariatric Surgery Program educational information: 1. Read [...] take place in the General Surgery Clinic, [facility] [facility] Area 4L Friday 11/[address] Mai 3. 2nd visits with dietitian and nurse practitioner ([facility]- Shared Medical Appointment) 4. Surgical consultation 5. [...] of starch = 1 slice toast, ?? Yi muffin, ?? cup cooked potato, rice, or [...] in advance of approval. Only the OR devulcanizer operator can provide you with a date. Questions for your doctor, specialist or pharmacist: 7. Ask your doctor about medication suggestions if you currently take medications that are largerthan the size of a tylenol. Large pills need to be crushed (if permitted by the drug photoengraving retoucher) or taken in liquid form for TWO [...] ASMBS website: http://asmbs.org/patients 2. Bariatric surgery apps- [facility] Juan Francisco Apps- Pre-Juan Francisco, Post-juan francisco 3.[facility] facebook page: [email or web address] documented in this encounter Progress Notes * Cathy Dillon - 11/02/2015 8:23 PM EST Reason for consultation: Jo is a 49 y.o. year-old female referred by NANDA OH MD for consultation for consideration of surgical treatment of obesity. Prior bariatric surgery evaluations: previous evaluation at [facility]- reports had stomach problem and was derailed from program Her preferred procedure: gastric bypass BARIATRIC SURGERY PROGRAM PATHWAY Review of progress with the requirements of the Bariatric Surgery Program: 1. Education: She has attended a Introduction to the [facility] Bariatric Surgery Program seminar, a comprehensive two hour meeting that provides a program overview, education on bariatric surgeries offered at [facility], risks and benefits, as well as patient expectations and follow up, in 08/05/14. [facility] BSPEducational seminars viewed: 3. Grades on post-testin-100%. The BSP Educational Handbook is provided at preoperative visit #1. 2. Pre-operative programmatic evaluations required: PCP evaluation and letter of support to proceedwith surgery, BSP labwork (can be done on day of visit #1) and psychological evaluation- minimum of2 visits. 3. Bariatric Surgery Program evaluations with RD and SENIOR RUBY DEVELOPER: 11/03/15 4. Weight history: 198 pounds on [...] determined at today's visit. ?? If all [facility] requirements and testing have been [...] weight loss have been unsuccessful in the buttermaker. Refer to nutrition note by [facility] dietitian for weight and dieting history, 24 hour dietary intake and recent dietary changes. Motivating factors for seeking surgery for bariatric surgery: see RD note Patient research in addition to attendance at [facility] Bariatric Surgery Informational meeting and online Educational [...] C. Complications: retinopathy, peripheral autonomic neuropathy, sees uniform patrol police officer for calluses, declines flu shot ??? GERD [...] GI ENDOSCOPY performed by ALISA RICHARDS at [facility] END[facility]COPY Anesthesia history (per patient): denies [...] 2. Psychological evaluation done by Court Galvan. [facility] following sessions on 03/25 and 04/17/15: no [...] believes that she was poisoned in [employer] in [place]. Other sister- diabetes type 2, otherwise healthy [...] GED. She was previously employed in a [employer] until her divorce became final. She is [...] chest pain, squeezing, pressure [] history of DE, previous PCI/ PTCA, cardiac surgery [] VTE, [...] [] hematuria [+] history of renal calculi DATABASES SOFTWARE CONSULTANT: [+] LMP: now, last cycle 1 year [...] of treatment of obesity and of the [facility] Bariatric Surgery Program: Ms.. Jones is aware that other treatments for obesity are available, ie, dietary, behavior modification, weight loss medications, exercise as well as surgical weight loss methods. The risks and benefits of bariatric surgery, including gastric bypass, adjustable gastric banding and sleeve gastrectomy are discussed at every Introduction to the [facility] Bariatric Surgery Program meeting and all Educational Seminars, and will be reviewed in detail at the second pre- operative visit. The importance of incorporating lifestyle activity and regular exercise, such as walking, or swimming, after discussion and approval by her primary home care music therapist, prior to surgery, as well as post-operatively, was stressed. She is aware of our programmatic approach which includes four bariatric surgeons, as well as a dietitian and nurse practitioner. Mandatory requirements include: 1. attendance at a two hour Introduction to the [facility] Bariatric Surgery Program seminar 2. view 3 [...] thoroughly research bariatric surgery, via the internet, the[facility] website at [email or web address], books, and journals. In addition, information on bariatric surgery is available at the [employer] Library at [facility]. Assessment/ Plan: 49 y.o. year old female [...] considered a candidate for gastric bypass at [facility] and [facility] in 2009 due to antral intestinal metaplasia, [...] psychological evaluation. Information given to patient: 1. [facility] Bariatric Surgery Education Handbook, a 102 page document (revision July 2013) which contains extensive information regarding pre and post- operative care including: a copy of the Patient Agreement, illustrations of GI anatomy and gastric bypass, gastric banding and sleeve gastrectomy surgeries, [facility] Rehab Medicine recommendations and exercises prior to [...] daily Studies and consults suggested to primary home care music therapist: NANDA OH MD 1. mammogram Pending: - [...] encouraged - 2nd visits with RD and SENIOR RUBY DEVELOPER, surgical consultation: scheduled for 11/17/15 Questions regarding [facility] Bariatric Surgery Program patients: please call Denny Dillon APRN at [phone] or [phone] beeper [phone]. * Taylor Vance - 11/02/2015 4:12 PM [...] get surgery for years now, went through [place] 's program and they founda problem in her stomach so delayed/ cancelled the surgery. She feels that not getting the surgery caused her diabetes to get worse. Motivating Factors for Seeking Weight Loss Surgery: ?? [x] Improved Health- diabetes ?? [ ] senior care weight loss ?? [ ] Improved quality [...] Not signifcant Not significant 1994 3 months [place] bloated and crampy Redux Dexfen 5 10 [...] or fruit Holidays: Family members brought by [employer] and she was eating larger portions and [...] through dieting have been unsuccessful over the senior care. Predicted weight loss with surgery is an [...] Notes * Advance Care Plan Note - aCthy Dillon - 11/03/2015 11:59 AM EST Hai Damian has DPOA- [phone]. Jo will bring copy of paperwork documented in this encounter Plan of Treatment Upcoming Encounters Date Type Department Care Team (Late st Contact Info) Description 02/19/2025 9:00 AM EDT TH Visit (TeleHealth) [place] [address] Wyatt Higgins MD [facility] [place] [address] Scheduled Referrals Name Type Priority Associated Diagnoses [...] unspecified obesity type [E66.01] COMPREHENSIVE METABOLIC PANEL Routine 11/03/2015 1:10 PM EST Type 2 diabetes mellitus with complication Morbid obesity, unspecified obesity type [E66.01] Hyperlipidemia, unspecified hyperlipidemia type [E78.5] documented in this encounter Results * UPPER GI ENDOSCOPY (11/04/2015 10:49 AM EST) [facility] UPPER GI ENDOSCOPY [facility] Endoscopy Patient Name: Jo Jones ? Procedure Date: 11/04/2015 10:49 AM ? Date of : 1965 ? Age: 49 ? Order #: [id number] ? Procedure: ? Upper GI endoscopy Indications: ? Possible history of H. Pylori, ? planning gastric bypass Providers: ? Kisha Doss MD, Franchesca Ugarte, ? Telma Mccarty MD: ?Nanda Oh MD Medicines: ? Propofol per [...] (ABNORMAL) Differential, Automated (11/03/2015 1:10 PM EST) Neutrophil % 64.4 % CERNER MILLENNIUM Neutrophil Absolute 6.39(H) 1.50 - 6.30 x10(3)/mc L CERNER MILLENNIUM Lymph % 28.2 % CERNER MILLENNIUM Lymphocytes Abs 2.8 1.0 - 3.6 x10(3)/mc L CERNER MILLENNIUM Monocyte % 5.5 % CERNER MILLENNIUM Monocyte Abs 0.6 0.2 - 1.0 x10(3)/mc L CERNER MILLENNIUM Eos % 1.3 % CERNER MILLENNIUM Eosinophils Abs 0.1 0.0 - 0.5 x10(3)/mc L CERNER MILLENNIUM Basophil % 0.4 % CERNER MILLENNIUM Baso Absolute 0.0 0.0 - 0.2 x10(3)/mc L CERNER [...] Immature Gran Absolute 0.02 0.00 - 0.05 x10(3)/mc L [facility]ERN[facility] MILLENNIUM Blood specimen (specimen) 11/03/2015 1:10 PM EST 11/03/2015 1:29 PM EST Narrative Resulting Agency Comment Spec In Lab Yvonne Menchaca MD HEMATOLOGY ORDERABLE S [facility]ERNER MILLENNIUM * (ABNORMAL) Hemogram (11/03/2015 1:10 PM EST) White Blood Cell 9.9 4.0 - 10.0 x10(3)/mc L CERNER MILLENNIUM Red Blood Cell 5.15 3.93 - 5.22 x10(6)/mc L CERNER MILLENNIUM Hemoglobin 13.6 11.2 - 15.7 gm/dL CERNER MILLENNIUM Hematocrit 42.1 34.0 - 45.0 % CERNER MILLENNIUM Mean Cell Volume 81.7 79.0 - 94.0 fL CERNER MILLENNIUM Mean Cell Hemoglobin 26.4(L) 26.6 - 32.2 pg CERNER MILLENNIUM Mean Cell Hemoglobin Concentration 32.3 32.0 - 36.5 gm/dL CERNER MILLENNIUM Platelet 286 145 - 370 x10(3)/mc L CERNER MILLENNIUM RDW Standard Deviation 43.6 35.0 - 46.0 fL CERNER MILLENNIUM RDW coefficient of variation 14.7(H) 10.9 - 14.4 % CERNER MILLENNIUM Mean Platelet Volume 10.7 9.0 - 12.0 fL CERNER MILLENNIUM Blood specimen (specimen) 11/03/2015 1:10 PM EST 11/03/2015 1:29 PM EST Narrative Resulting Agency Comment Spec In Lab Yvonne Menchaca MD HEMATOLOGY ORDERABLE S Performing Organization Address City/[facility]/ZIP Co de Phone Number [facility] * TSH (11/03/2015 1:10 PM EST) Thyroid Stimulating Hormone 2.39 0.27 - 4.20 mcIU/mL CERNER MILLENNIUM Blood specimen (specimen) 11/03/2015 1:10 PM EST 11/03/2015 1:28 PM EST Narrative Resulting Agency Comment Spec In Lab Yvonne Menchaca MD CHEMISTRY ORDERABLES Performing Organization Address [facility] Co de Phone Number [facility] * Uric acid (11/03/2015 1:10 PM EST) Uric Acid 4.6 2.5 - 6.5 mg/dL [facility] Blood specimen (specimen) 11/03/2015 1:10 PM EST 11/03/2015 1:28 PM EST Narrative Resulting Agency Comment Spec In Lab Yvonne Menchaca MD CHEMISTRY ORDERABLES Performing Organization Address [facility] Co de Phone Number [facility] * Folate, serum (11/03/2015 1:10 PM EST) Folate 19.2 4.6 - 34.8 ng/mL [facility] Blood specimen (specimen) 11/03/2015 1:10 PM EST 11/03/2015 1:28 PM EST Narrative Resulting Agency Comment Spec In Lab Yvonne Menchaca MD CHEMISTRY ORDERABLES Performing Organization Address [facility] Co de Phone Number [facility] * Vitamin B12 (11/03/2015 1:10 PM EST) Vitamin B12 327 207 - 974 pg/mL [facility] Blood specimen (specimen) 11/03/2015 1:10 PM EST 11/03/2015 1:28 PM EST Narrative Resulting Agency Comment Spec In Lab Yvonne Menchaca MD CHEMISTRY ORDERABLES Performing Organization Address [facility] Co de Phone Number [facility] * Vitamin B1, whole blood (11/03/2015 1:10 PM EST) Vit B1 Lvl Wb (FEBRUARY) 161 70 - 180 nmol/L [facility] Comment: Test Performed by: [employer] [address] [address] Ornamental Metal Erector: Monisha Payne, Ph.D. Blood specimen (specimen) 11/03/2015 1:10 PM EST 11/03/2015 3:03 PM EST Narrative Resulting Agency Comment Spec In Lab Yvonne Menchaca MD LAB SEND OUT ORDERAB LES Performing Organization Address [facility] Co de Phone Number [facility] * (ABNORMAL) VIT D Total Evaluation (11/03/2015 1:10 PM EST) Vitamin D Total 25 OH 29(L) 30 - 100 ng/mL [facility] Comment: Deficient <10 ng/mL Insufficient 10 to 29 ng/mL Sufficient 30 to 100 ng/mL Potential Intoxication >100 ng/mL According to the US National Osteoporosis Foundation, Vitamin D concentrations >30 ng/mL are sufficient to protect bone health. ??The National Kidney Foundation has similarly stated that patients with Vitamin D concentrations <30ng/mL should be considered to be insufficient or deficient. http://[employer]/DHChloe + Isabelnatlkidneyfoundation http://[employer]/DHChloe + IsabelVitD [employer] Vitamin D Immunoassay detects both 25-OH Vitamin D2 and 25-OH Vitamin D3, but only a total Vitamin D concentration is reported. Blood specimen (specimen) 11/03/2015 1:10 PM EST 11/03/2015 1:28 PM EST Narrative Resulting Agency Comment Spec In Lab Yvonne Menchaca MD CHEMISTRY ORDERABLES Performing Organization Address [facility] de Phone Number [facility] * (ABNORMAL) PTH (11/03/2015 1:10 PM EST) Parathyroid Hormone 73(H) 15 - 65 pg/mL [facility] Blood specimen (specimen) 11/03/2015 1:10 PM EST 11/03/2015 1:28 PM EST Narrative Resulting Agency Comment Spec In Lab Yvonne Menchaca MD CHEMISTRY ORDERABLES Performing Organization Address [facility] de Phone Number [facility] * Vitamin A (11/03/2015 1:10 PM EST) Vitamin A (FEBRUARY) 37.7 32.5 - 78.0 mcg/dL [facility] Comment: Test Performed by: [facility] [employer] [address], [place] [address] Ornamental Metal Erector: Monisha Payne, Ph.D. Blood specimen (specimen) 11/03/2015 1:10 PM EST 11/03/2015 3:03 PM EST Narrative Resulting Agency Comment Spec In Lab Yvonne Menchaca MD LAB SEND OUT ORDERAB LES [facility] * (ABNORMAL) Ferritin (11/03/2015 1:10 PM EST) Ferritin 23(L) 30 - 400 ng/mL [facility] Comment: Pediatric reference ranges not verified at [facility], interpret with caution. Reference ranges for females greater than 50 years of age approach values for men, i.e., 30-400 ng/mL. Blood specimen (specimen) 11/03/2015 1:10 PM EST 11/03/2015 1:28 PM EST Narrative Resulting Agency Comment Spec In Lab Yvonne Menchaca MD CHEMISTRY ORDERABLES Performing Organization Address [facility] Co de Phone Number [facility] * (ABNORMAL) Iron and TIBC (11/03/2015 1:10 PM EST) Iron 30 30 - 150 mcg/dL [facility] TIBC 344 250 - 450 mcg/dL [facility] Iron Saturation 9(L) 20 - 50 % [facility] MILLENNIUM Blood specimen (specimen) 11/03/2015 1:10 PM EST 11/03/2015 1:28 PM EST Narrative Resulting Agency Comment Spec In Lab Yvonne Menchaca MD CHEMISTRY ORDERABLES Performing Organization Address [facility] Co de Phone Number [facility] * (ABNORMAL) Hemoglobin A1c (11/03/2015 1:10 PM EST) Hemoglobin A1c 8.5(H) 4.3 - 5.6 % CERNER MILLENNIUM [...] Mellitus, Diabetes Care 2013; 36: Suppl. 1, S67-18 Estimated Average Glucose 197 mg/dL [facility] Comment: eAG equivalents for HbA1c percentages: HbA1c(%) ?eAG(mg/dL) 6.0 ?126 6.5 ?140 7.0 ?154 7.5 ?169 8.0 ?183 8.5 ?197 9.0 ?212 9.5 ?226 10.0 ? 240 Limitations: The eAG calculation has not been validated on women, individuals below 18 years old and above 70 years old, and individuals with hemoglobinopathies. Additional resources are available on the ADA website: http://Hidden Radiourl.com/DHMCadacalc Maurice GODINEZ, Marion J, Miriam R, et al. ??Translating the A1C assay into estimated average glucose values. ??Diabetes Care 2008:31(8):6924-6417. Blood specimen (specimen) 11/03/2015 1:10 PM EST 11/03/2015 1:29 PM EST Narrative Resulting Agency Comment Spec In Lab Yvonne Menchaca MD CHEMISTRY ORDERABLES [facility] MILLENNIUM * Prealbumin (11/03/2015 1:10 PM EST) Prealbumin 20 20 - 40 mg/dL [facility] MILLENNIUM Comment: Prealbumin levels are generally lower in the pediatric population; adult concentrations are usually attained near puberty. Blood specimen (specimen) 11/03/2015 1:10 PM EST 11/03/2015 1:28 PM EST Narrative Resulting Agency Comment Spec In Lab Yvonne Menchaca MD CHEMISTRY ORDERABLES [facility] * (ABNORMAL) Comprehensive metabolic panel (non-fasting) (11/03/2015 1:10 PM EST) Glucose 86 65 - 199 mg/dL [facility] MILLENNIUM Comment:Diabetes: >=200 mg/d L plus symptoms Blood Urea Nitrogen 13 8 - 18 mg/dL [facility] MILLENNIUM Creatinine 0.43(L) 0.70 - 1.20 mg/dL [facility] MILLENNIUM Comment: Please note that the pediatric reference intervals supplied above were not validated at [facility]. Results from pediatric patients should be interpreted [...] 104 98 - 107 mmol/L CERNER MILLENNIUM Carbon Dioxide 23 22 - 31 mmol/L [facility] MILLENNIUM Anion Gap 15 5 - 15 mmol/L [facility] MILLENNIUM Calcium 8.8 8.5 - 10.5 mg/dL [facility] MILLENNIUM Protein, Total 7.7 6.1 - 8.0 gm/dL [facility] MILLENNIUM Albumin 3.9 3.2 - 5.2 gm/dL [facility] MILLENNIUM Aspartate Aminotransferase 19 0 - 30 unit/L [facility] MILLENNIUM Alanine Aminotransferase 17 0 - 30 unit/L [facility] MILLENNIUM Alkaline Phosphatase 93 40 - 104 unit/L CERN[facility] MILLENNIUM Bilirubin, Total 0.2 0.2 - 1.3 mg/dL CERN[facility] MILLENNIUM Bilirubin, Direct 0.1 0.0 - 0.3 mg/dL CERN[facility] MILLENNIUM Est Glomerular Filtration Rate >60 >=60 CERNER MILLENNIUM Comment: This estimated [...] the following links into your internet browser. http://[employer]/DHnkdep [email or web address] Blood specimen (specimen) 11/03/2015 1:10 PM EST 11/03/2015 1:28 PM EST Narrative Resulting Agency Comment Spec In Lab Yvonne Menchaca MD CHEMISTRY ORDERABLES [facility] documented in this encounter Visit Diagnoses Diagnosis [...] disorder documented in this encounter Care Teams Sewer Tapper Relationship Specialty Start Date End Date Nanda Oh MD [facility] [address] [place] [address] PCP - General 09/14/10 06/06/18 documented as of this encounter
--- OUTSIDE RECORDS SUMMARY | 2024-09-18 16:15 | XMS_ITS | Encounter Summary ---
Author Organization [facility] [place] [address] Care Team Providers Care Oilfield Plant And Field Operator Name Role Phone Nanda Read MD Primary Care Provider Reason for Visit * Reason Comments Medication Refill Encounter Details Date Type Department Care Team (Late st Contact Info) Description 06/20/2015 Refill [place] [phone] Judith Reinoso MD [facility] [place] [address] Social History Tobacco Use Types Packs/Day Years [...] TH Visit (TeleHealth) [place] [phone] Wyatt Higgins MD [facility] [place] [address] documented as of this encounter Visit Diagnoses Not on filedocumented in this encounter Care Teams Oilfield Plant And Field Operator Relationship Specialty Start Date End Date Nanda Read MD [facility] [address] [place] [address] PCP - General 09/14/10 06/06/18 documented as of this encounter
--- OUTSIDE RECORDS SUMMARY | 2024-09-18 16:15 | XMS_ITS | Encounter Summary ---
Author Organization [facility] [place] [address] Care Team Providers Care Laborer Cement Gun Placing Name Role Phone Nanda Read MD Primary Care Provider [phone] Encounter Details Date Type Department Care Team (Late st Contact Info) Description 11/03/2015 10:00 AM EST Clinical Support [place] [phone] Social History Tobacco Use Types Packs/Day Years [...] EDT TH Visit (TeleHealth) [place] [phone] Wyatt Higgins MD [facility] [address] documented as of this encounter Visit Diagnoses Not on filedocumented in this encounter Care Teams Laborer Cement Gun Placing Relationship Specialty Start Date End Date Nanda Read MD [facility] [address] [place] [address] PCP - General 09/14/10 06/06/18 documented as of this encounter
--- OUTSIDE RECORDS SUMMARY | 2024-09-18 16:15 | XMS_ITS | Encounter Summary ---
Author Organization Formerly [facility] [place] [address] Care Team Providers Care Mental Health Social Worker Name Role Phone Nanda Read MD Primary Care Provider Encounter Details Date Type Department Care Team (Late st Contact Info) Description 05/08/2013 External Results XRay at [address] [place] [phone] Nanda Read MD KIRILL D [address] [place], [place] [id number] Social History Tobacco Use Types Packs/Day Years [...] AM EDT TH Visit (TeleHealth) Neurology at [facility] [place] [address] Wyatt Higgins MD [facility] [place] [address] documented as of this encounter Procedures Procedure Name Priority Date/Time Associated Diagnosis Comments MRI/MRA SCAN Routine 01/09/2013 documented in this encounter Results * Scan Doc: MRI/MRA (01/09/2013) Anatomical Region Laterality Modality Other Nanda Read MD MEDIA MGR SCAN EXT O RDR/RSLT documented in this encounter Visit Diagnoses Not on filedocumented in this encounter Care Teams Mental Health Social Worker Relationship Specialty Start Date End Date Nanda Read MD [facility] [address] [place] [address] PCP - General 09/14/10 06/06/18 documented as of this encounter
--- OUTSIDE RECORDS SUMMARY | 2024-09-18 16:15 | XMS_ITS | Encounter Summary ---
Author Organization Formerly [facility] [place] [address] Care Team Providers Care Higher Education Administrator Name Role Phone Nanda Read MD Primary Care Provider Encounter Details Date Type Department Care Team (Late st Contact Info) Description 01/09/2013 Orders [place] [phone] Cy Mason MD [facility] [place] [address] Social History Tobacco Use Types Packs/Day Years [...] AM EDT TH Visit (TeleHealth) [place] [phone] Wyatt Higgins MD [facility] [place] [address] documented as of this encounter Procedures Procedure [...] Mason MD IMG FILM LIBRARY ORD ERABLES [facility] [address] [facility] [place] [address] documented in this encounter Visit Diagnoses Not on filedocumented in this encounter Care Teams Higher Education Administrator Relationship Specialty Start Date End Date Nanda Read MD [facility] [address] [place] [address] PCP - General 09/14/10 06/06/18 documented as of this encounter
--- OUTSIDE RECORDS SUMMARY | 2024-09-18 16:15 | XMS_ITS | Encounter Summary ---
Author Organization [facility] [place] [address] Care Team Providers Care Knitter Wire Mesh Name Role Phone Nanda Read MD Primary Care Provider Reason for Visit * Reason Comments Pain Management bilateral leg and fo ot Encounter Details Date Type Department Care Team (Late st Contact Info) Description 07/01/2014 12:15 PM EDT Office [place] [address] Alvarez Ayala MD [facility] [place] [address] Peripheral neuropathy-severe generalized (Primary Dx) Discharge Disposition: [...] her that the risks of opioid use truck terminal manager include addiction, constipation, sedation, sexual dysfunction, fracture, [...] AM EDT TH Visit (TeleHealth) [place] [address] Wyatt Higgins MD [facility] [place] [address] documented as of this encounter Visit Diagnoses Diagnosis Peripheral neuropathy-severe generalized- Primary Unspecified hereditary and idiopathic peripheral neuropathy documented in this encounter Care Teams Knitter Wire Mesh Relationship Specialty Start Date End Date Nanda Read MD [facility] [address] [place] [address] PCP - General 09/14/10 06/06/18 documented as of this encounter
--- OUTSIDE RECORDS SUMMARY | 2024-09-18 16:15 | XMS_ITS | Encounter Summary ---
Author Organization [facility] [place] [address] Care Team Providers Care Tallow Pumper Name Role Phone Nanda Read MD Primary Care Provider [phone] Reason for Referral * Consultation (Routine) - Complete - Patient Will Schedule External Appt Specialty Diagnoses / Procedures Referred By Patricio monsivais Referred To Contact General Surgery Diagnoses Type II or unspecified type diabetes mellitus with neurological manifestations, uncontrolled(250.62) Obesity Judith Reinoso MD [facility] [place] [address] [facility] [place] [place] Gen Surgery [address] [place] [address] Referral ID Status Reason Start Date Expiration Date Visits Requested Visits Authorized [id number] Complete - Patient Will Schedule External Appt Consult, Test & Treat 04/29/2014 10/26/2014 1 1 Reason for Visit * Reason Comments Diabetes Encounter Details Date Type Department Care Team (Late st Contact Info) Description 04/29/2014 2:00 PM EDT Office [place] [address] Judith Reinoso MD [facility] [place] [address] Type II or unspecified type diabetes mellitus [...] 2 weeks Most recent HA1c: 9.3% on 6/24/14 at PCP's office (9.0% on 05/24/13 and [...] AM EDT TH Visit (TeleHealth) [place] [phone] Wyatt Higgins MD [facility] [place] [address] Scheduled Referrals Name Type Priority Associated Diagnoses Orde r Schedule Referral to Bariatric Surgery Program Outpatient Referral Routine Type II or unspecified type diabetes mellitus with neurological manifestations, uncontrolled Obesity Ordered: 04/29/2014 documented as of this encounter Results * (ABNORMAL) C-peptide (03/05/2015) C-Peptide 2.9(Externa l Lab) Blood specimen (specimen) 03/05/2015 Judith Reinoso MD CHEMISTRY ORDERAB LES * (ABNORMAL) Microalbumin, urine, random (03/05/2015) Creatinine, Urine 162(REAL ESTATE INTERN AL/ABN) Albumin, Urine 39.2(EXTER NAL/ABN) Urine specimen (specimen) 03/05/2015 Judith Reinoso MD URINE ORDERABLES * (ABNORMAL) VIT D Total Evaluation (03/05/2015) Vitamin D Total 25 OH 28(Externa l Lab) 25-Hydroxy D2 24(Externa l Lab) 25-Hydroxy D3 4.3(Toby Maker al Lab) Blood specimen (specimen) 03/05/2015 Judith Reinoso MD CHEMISTRY ORDERAB LES * (ABNORMAL) TSH (04/18/2014) Thyroid Stimulating Hormone 0.074(EXTE RNAL/ABN) Blood specimen (specimen) 04/18/2014 Judith Reinoso MD CHEMISTRY ORDERAB LES * (ABNORMAL) Hemoglobin A1c (04/15/2014) Hemoglobin A1c 9.3(REAL ESTATE INTERN AL/ABN) Blood specimen (specimen) 04/15/2014 Judith Reinoso MD CHEMISTRY ORDERAB LES documented in this encounter Visit Diagnoses Diagnosis Type II or unspecified type diabetes mellitus with neurological manifestations, 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
--- OUTSIDE RECORDS SUMMARY | 2024-09-18 16:15 | XMS_ITS | Encounter Summary ---
[place] [address] Care Team Providers Care Therapist Rrt Name Role Phone Nanda Read MD Primary Care Provider Encounter Details Date Type Department Care Team (Late st Contact Info) Description 03/24/2015 Telephone [place] [phone] Tracy Tavarez LPN Social History Tobacco Use [...] v/m that message will be forward to payroll secretary. documented in this encounter Plan of Treatment Upcoming Encounters Date Type Department Care Team (Late st Contact Info) Description 02/19/2025 9:00 AM EDT TH Visit (TeleHealth) [place] [address] Wyatt Higgins MD [facility] [place] [address] documented as of this encounter Visit Diagnoses Not on filedocumented in this encounter Care Teams Therapist Rrt Relationship Specialty Start Date End Date Nanda Read MD [facility] [address] [place] [address] PCP - General 09/14/10 06/06/18 documented as of this encounter
--- OUTSIDE RECORDS SUMMARY | 2024-09-18 16:15 | XMS_ITS | Encounter Summary ---
Author Organization [facility] [place] [address] Care Team Providers Care Hybrid Powertrain Development Engineer Name Role Phone Nanda Read MD Primary Care Provider [phone] Reason for Visit * Reason Comments Medication Refill Encounter Details Date Type Department Care Team (Late st Contact Info) Description 10/29/2013 Refill [place] [address] Judith Reinoso MD [facility] [place] [address] Social History Tobacco Use Types Packs/Day Years [...] AM EDT TH Visit (TeleHealth) [place] [address] Wyatt Higgins MD [facility] [place] [address] documented as of this encounter Visit Diagnoses Not on filedocumented in this encounter Care Teams Hybrid Powertrain Development Engineer Relationship Specialty Start Date End Date Nanda Read MD [facility] [address] [place] [address] PCP - General 09/14/10 06/06/18 documented as of this encounter
--- OUTSIDE RECORDS SUMMARY | 2024-09-18 16:15 | XMS_ITS | Encounter Summary ---
Author Organization [facility] [place] [address] Care Team Providers Care Lisw Name Role Phone Nanda Read MD Primary Care Provider [phone] Encounter Details Date Type Department Care Team (Latest Contact Info) Description 03/09/2015 External Results [place] [address] Judith Reinoso MD [facility] [place] [address] Type II or unspecified type diabetes mellitus [...] TH Visit (TeleHealth) [place] [address] Wyatt Higgins MD [facility] [place] [address] documented as of this encounter Procedures Procedure [...] / CMP / Thyroid External Results (03/05/2015) Thyroid Stimulating Hormone 2.55(Exter nal Lab) 03/05/2015 Judith Reinoso MD EXTERNAL LAB ORDE RABLES * (ABNORMAL) C-peptide (03/05/2015) C-Peptide 2.9(Externa l Lab) Blood specimen (specimen) 03/05/2015 Judith Reinoso MD CHEMISTRY ORDERAB LES * (ABNORMAL) VIT D Total Evaluation (03/05/2015) Vitamin D Total 25 OH 28(Externa l Lab) 25-Hydroxy D2 24(Externa l Lab) 25-Hydroxy D3 4.3(Rpg Programmer al Lab) Blood specimen (specimen) 03/05/2015 Judith Reinoso MD CHEMISTRY ORDERAB LES documented in this encounter Visit Diagnoses Diagnosis Type II or unspecified type diabetes mellitus with neurological manifestations, 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
--- OUTSIDE RECORDS SUMMARY | 2024-09-18 16:15 | XMS_ITS | Encounter Summary ---
Author Organization [facility] [place] [address] Care Team Providers Care Jewel Blocker And Sawyer Name Role Phone Nanda Read MD Primary Care Provider Reason for Visit * Reason Comments Medication Refill Encounter Details Date Type Department Care Team (Late st Contact Info) Description 11/01/2013 [place] [phone] Judith Reinoso MD [facility] [place] [address] Social History Tobacco Use Types Packs/Day Years [...] AM EDT TH Visit (TeleHealth) [place] [address] Wyatt Higgins MD [facility] [place] [address] documented as of this encounter Visit Diagnoses Not on filedocumented in this encounter Care Teams Jewel Blocker And Sawyer Relationship Specialty Start Date End Date Nanda Read MD [facility] [address] [place] [address] PCP - General 09/14/10 06/06/18 documented as of this encounter
--- OUTSIDE RECORDS SUMMARY | 2024-09-18 16:15 | XMS_ITS | Encounter Summary ---
[place] [address] Care Team Providers Care Senior Accounting Clerk Name Role Phone Nanda Read MD Primary Care Provider Encounter Details Date Type Department Care Team (Late st Contact Info) Description 07/02/2014 Telephone [place] [address] Benita Salazar LPN Social History Tobacco Use [...] corrected her medication list. Also, requesting a [facility] password to set up an account. Sent her myd-H information via mail. documented in this encounter Plan of Treatment Upcoming Encounters Date Type Department Care Team (Late st Contact Info) Description 02/19/2025 9:00 AM EDT TH Visit (TeleHealth) [place] [address] Wyatt Higgins MD [facility] [place] [address] documented as of this encounter Visit Diagnoses Not on filedocumented in this encounter Care Teams Senior Accounting Clerk Relationship Specialty Start Date End Date Nanda Read MD [facility] [address] [place] [address] PCP - General 09/14/10 06/06/18 documented as of this encounter
--- OUTSIDE RECORDS SUMMARY | 2024-09-18 16:15 | XMS_ITS | Encounter Summary ---
Author Organization [facility] [place] [address] Care Team Providers Care Industrial Green Systems Designer Name Role Phone Nanda Read MD Primary Care Provider Reason for Visit * Reason Comments Medication Refill Encounter Details Date Type Department Care Team (Late st Contact Info) Description 05/22/2014 [place] [address] Judith Reinoso MD [facility] [place] [address] Social History Tobacco Use Types Packs/Day Years [...] AM EDT TH Visit (TeleHealth) [place] [address] Wyatt Higgins MD [facility] [place] [address] documented as of this encounter Visit Diagnoses Not on filedocumented in this encounter Care Teams Industrial Green Systems Designer Relationship Specialty Start Date End Date Nanda Read MD [facility] [address] [place] [address] PCP - General 09/14/10 06/06/18 documented as of this encounter
--- OUTSIDE RECORDS SUMMARY | 2024-09-18 16:15 | XMS_ITS | Encounter Summary ---
Author Organization [facility] [place] [address] Care Team Providers Care Business Broker Name Role Phone Nanda Read MD Primary Care Provider [phone] Encounter Details Date Type Department Care Team (Late st Contact Info) Description 07/11/2014 1:15 PM EDT - 07/11/2014 11:59 PM EDT Hospital [place] [address] CLIN[address], DR [facility]GAN Memory loss Social History [...] 1/2 mL 30 x 5/16 Syrg by [facility]Non-Drug; Combo Route) route 2 times daily. Using with insulin bid 1 Box 4 06/03/2011 04/06/2017 documented as of this encounter Plan of Treatment Upcoming Encounters Date Type Department Care Team (Late st Contact Info) Description 02/19/2025 9:00 AM EDT TH Visit (TeleHealth) [place] [address] Wyatt Higgins MD [facility] [place] [address] documented as of this encounter Procedures Procedure [...] loss documented in this encounter Care Teams Business Broker Relationship Specialty Start Date End Date Nanda Read MD KIRILL Gonzalez [address] [place] [address] PCP - General 09/14/10 06/06/18 documented as of this encounter
--- OUTSIDE RECORDS SUMMARY | 2024-09-18 16:15 | XMS_ITS | Encounter Summary ---
[place] [address] Care Team Providers Care Neuropsychology Division Chief Name Role Phone Nanda Read MD Primary Care Provider Reason for Visit * Reason Onset Date Comments Medication Problem 03/31/2015 Encounter Details Date Type Department Care Team (Late st Contact Info) Description 03/31/2015 Telephone [place] [phone] Madelin Gunn grass farmer Problem Social History Tobacco Use Types Packs/Day [...] mg sc bid instead of bydureon then. Judiht Spoke with Martha. She states she doesn't [...] AM EDT TH Visit (TeleHealth) [place] [address] Wyatt Higgins MD [facility] [place] [address] documented as of this encounter Visit Diagnoses Not on filedocumented in this encounter Care Teams Neuropsychology Division Chief Relationship Specialty Start Date End Date Nanda Read MD [facility] [address] [place] [address] PCP - General 09/14/10 06/06/18 documented as of this encounter
--- OUTSIDE RECORDS SUMMARY | 2024-09-18 16:15 | XMS_ITS | Encounter Summary ---
Author Organization [facility] [place] [address] Care Team Providers Care Home Health Care Coordinator Name Role Phone Nanda Read MD Primary Care Provider Reason for Visit * Reason Comments Back Pain Bilateral Leg Pain Foot Drop Encounter Details Date Type Department Care Team (Late st Contact Info) Description 05/22/2013 7:20 AM EDT Office [place] [address] Shan Valdez MD [facility] [place] [address] Peripheral neuropathy-severe generalized (Primary Dx) Discharge Disposition: [...] - 05/22/2013 7:55 AM EDT Welcome to [facility], your secure online access to your electronic medical record at [facility]. Using [facility] Website you will be able to send messages to your providers, view your test results, renew prescriptions, schedule appointments, and much more. Follow these instructions to enter your personal [facility] account for the first time: 1. Start your internet browser and type [email or web address] into the address bar. 2. In the New User box on the right-hand side of the Welcome page click the link that states, ???I have an activation code.?? 3. On the Identification page, follow these steps: a) Enter your [facility] activation code: [email or web address] b) Expires: 07/06/2013 7:56 AM IMPORTANT: This Activation Code will on the above mentioned date. If you do not sign up for [facility] by this date, you will need to request another activation code. c) Enter your date of , using the calendar tool provided. d) Enter your Zip code. e) Select ???submit?? to go to the next page. 4. On the Create Account page, follow these steps: a) Create a [facility] username. This can???t be changed, so choose [...] or your Access Code, please call for [place], for [place] or for [place]. If you need technical support, please e-mail [email or web address]. Remember, myD-H is NOT for urgent needs! [...] AM EDT TH Visit (TeleHealth) [place] [address] Wyatt Higgins MD [facility] [place] [place] [address] documented as of this encounter Visit Diagnoses Diagnosis Peripheral neuropathy-severe generalized- Primary Unspecified hereditary and idiopathic peripheral neuropathy documented in this encounter Care Teams Home Health Care Coordinator Relationship Specialty Start Date End Date Nanda Read MD [facility] [address] [place] [address] PCP - General 09/14/10 06/06/18 documented as of this encounter
--- OUTSIDE RECORDS SUMMARY | 2024-09-18 16:15 | XMS_ITS | Encounter Summary ---
[place] [address] Care Team Providers Care Freight Forwarder Name Role Phone Nadna Read MD Primary Care Provider [phone] Reason for Visit * Reason Onset Date Comments Prior Authorization 03/25/2015 Encounter Details Date Type Department Care Team (Late st Contact Info) Description 03/25/2015 Telephone [place] [address] Mckenzie Butt Prior Authorization Social History Tobacco [...] request: DM Health plan: [place] Authorizing parts sales representative name: MCKENZIE Faxed to health plan on: 03/25/15 Health plan decision: DENIED- PT MUST TRY AND FAIL OR NOT TOLERATE BYETTA Quantity approved: Authorization number: [id number] Start date: 04/02/15 End date: 04/02/16 Patient notified? NO Pharmacy notified? YES documented in this encounter Plan of Treatment Upcoming Encounters Date Type Department Care Team (Late st Contact Info) Description 02/19/2025 9:00 AM EDT TH Visit (TeleHealth) [place] [address] Wyatt Higgins MD [facility] [place] [address] documented as of this encounter Visit Diagnoses Not on filedocumented in this encounter Care Teams Freight Forwarder Relationship Specialty Start Date End Date Nanda Read MD [facility] [address] [place] [address] PCP - General 09/14/10 06/06/18 documented as of this encounter
--- OUTSIDE RECORDS SUMMARY | 2024-09-18 16:15 | XMS_ITS | Encounter Summary ---
[place] [address] Care Team Providers Care Tripper Name Role Phone Nanda Read MD Primary Care Provider [phone] Reason for Visit * Reason Onset Date Comments Prior Authorization 08/05/2015 Encounter Details Date Type Department Care Team (Late st Contact Info) Description 08/05/2015 [place] [address] Mckenzie Butt Prior Authorization Social History Tobacco [...] t2, untontrolled [place] Authorizing direct sales representative name: mckenzie Faxed to health plan on: 08/05/15 Health plan decision: approved Quantity approved: Authorization number: [id number] Start date: 08/05/15 End date: 08/05/16 Patient notified? no Pharmacy notified? yes documented in this encounter Plan of Treatment Upcoming Encounters Date Type Department Care Team (Late st Contact Info) Description 02/19/2025 9:00 AM EDT TH Visit (TeleHealth) [place] [address] Wyatt Higgins MD [facility] [place] [address] documented as of this encounter Visit Diagnoses Not on filedocumented in this encounter Care Teams Tripper Relationship Specialty Start Date End Date Nanda Read MD [facility] D [address] [place] [address] PCP - General 09/14/10 06/06/18 documented as of this encounter
--- OUTSIDE RECORDS SUMMARY | 2024-09-18 16:15 | XMS_ITS | Encounter Summary ---
Author Organization [facility] [place] [address] Care Team Providers Care Intermodal Customer Service Name Role Phone Nanda Read MD Primary Care Provider [phone] Encounter Details Date Type Department Care Team (Late st Contact Info) Description 06/18/2014 8:45 AM EDT Office [place] [address] Korina Cho MD [facility] [place] [address] Memory loss Discharge Disposition: Home Social History [...] She is seen in consultation at the [facility] of Dr. Nanda Read. She complains a [...] 1/2 mL 30 x 5/16 Syrg by [facility].(Non-Drug; Combo Route) route [...] letters (27) but normal for categories (41). [place] Making A was normal at 15 seconds. [place] Making B was normal at 55 seconds, with 0 errors. BNT short form performed: able to name 12/15 items. Called the palette paint, the sphinx the Cook Islander thingy, and the tripod easel. Ran out [...] AM EDT TH Visit (TeleHealth) [place] [address] Wyatt Higgins MD [facility] [place] [address] documented as of this encounter Results * [...] loss documented in this encounter Care Teams Intermodal Customer Service Relationship Specialty Start Date End Date Nanda Read MD [facility] D [address] [place] [address] PCP - General 09/14/10 06/06/18 documented as of this encounter
--- OUTSIDE RECORDS SUMMARY | 2024-09-18 16:15 | XMS_ITS | Encounter Summary ---
[facility] Organization [facility] [place] [address] Care Team Providers Care Case Investigator Name Role Phone Nanda Read MD Primary Care Provider Reason for Visit * Reason Comments Skin Check Encounter Details Date Type Department Care Team (Late st Contact Info) Description 12/05/2014 2:15 PM EST Office Visit Dermatology at [address] [place] [address] Galdino Gilliland MD [address], [place] [address] Seborrheic keratosis Discharge Disposition: Home Social History [...] Barreto LPN - 12/05/2014 1:57 PM EST [facility] Actinic Keratosis: After Your Visit Your Care [...] more? Visit our health information library at [email or web address] You can also view health information on Xuehuile, your personal patient account. Log in or sign up today. Enter L364 in the search box to learn more about Actinic Keratosis: After Your Visit. ?? [id number] [employer]. Care instructions adapted under license by [facility]. This care instruction is for use with your licensed healthcare professional. If you have questions about a medical condition or this instruction, always ask your healthcare professional. [employer] disclaims any warranty or liability for your use of this information. Content Version: 10.3.234081; Current as of: May 22, 2014 documented [...] the right forehead. She has a waxy, [id number] lesion on the left medial canthus, which [...] TH Visit (TeleHealth) [place] [address] Wyatt Higgins MD [facility] [place] [address] documented as of this encounter Visit Diagnoses Diagnosis Seborrheic keratosis Other seborrheic keratosis documented in this encounter Care Teams Case Investigator Relationship Specialty Start Date End Date Nanda Read MD [facility] [address] [place] [address] PCP - General 09/14/10 06/06/18 documented as of this encounter
--- OUTSIDE RECORDS SUMMARY | 2024-09-18 16:15 | XMS_ITS | Encounter Summary ---
[place] [address] Care Team Providers Care Warp Dyeing Tender Name Role Phone Nanda Read MD Primary Care Provider [phone] Reason for Visit * Reason Onset Date Comments Advice Only 06/07/2013 Encounter Details Date Type Department Care Team (Late st Contact Info) Description 06/07/2013 Telephone [place] [phone] Tracy Tavarez LPN Advice Only Social History [...] take more shots. * Telephone Encounter - Judtih Reinoso MD - 06/07/2013 11:05 AM EDT [...] AM EDT TH Visit (TeleHealth) [place] [address] Wyatt Higgins MD [facility] NEUROLOGY DEPT [address] documented as of this encounter Visit Diagnoses Not on filedocumented in this encounter Care Teams Warp Dyeing Tender Relationship Specialty Start Date End Date Nanda Read MD [facility] Carlos [address] [place] [address] PCP - General 09/14/10 06/06/18 documented as of this encounter
--- OUTSIDE RECORDS SUMMARY | 2024-09-18 16:15 | XMS_ITS | Encounter Summary ---
Author Organization [facility] Address [facility] [place] [address] Care Team Providers Care Tow Car Driver Name Role Phone Nanda Read MD Primary Care Provider [phone] Reason for Visit * Auth/Cert Specialty Diagnoses / Procedures Referred By Patricio monsivais Referred To Contact Diagnoses preoperative bariatric surgery, history of gastric ulcers and hiatal herni. rule out upper GI pathology and H pylori Procedures PRO UPPER GI ENDOSCOPY, DIAGNOSTIC EGD, UPPER GI ENDOSCOPY Referral ID Status Reason Start Date Expiration Date Visits Re quested Visits Authorized [id number] 1 1 Encounter Details Date Type Department Care Team (Latest Contact Info) Description 11/04/2015 9:35 AM EST - 11/04/2015 12:05 PM EST Hospital Encounter [place] [address] Kisha Doss MD [facility] [place] [address] Discharge Disposition: Home Social History Tobacco Use [...] better as expected. Monday-Monday Same Day Endo [phone] Otherwise contact [phone] and ask to speak to the psychiatry instructor cushion worker Follow-up care is a [place] part of [...] 1/2 mL 30 x 5/16 Syrg by [facility]Non-Drug; Combo Route) route 2 times daily. Using [...] AM EDT TH Visit (TeleHealth) [place] [address] Wyatt Higgins MD [facility] [place] [address] documented as of this encounter Procedures Procedure [...] Report (11/04/2015 11:38 AM EST) Final Diagnosis [id number] ? Location: The signing pathologist has (i) [...] MD PATHOLOGY/CYTOLOGY O RDERABLES Performing Organization Address City/State/[facility] Co ar Phone Number [place] [address] * Specimen to Pathology (surgical or derm) (11/04/2015 11:38 AM EST) AP Specimen 11/04/2015 11:3 8 AM EST 11/04/2015 11:38 AM EST Narrative [facility] - 11/04/2015 11:38 AM EST Specimen requisition ordered. ??Separate Pathology report to follow Kisha Doss MD PATHOLOGY/CYTOLOGY O RDERABLES Performing Organization Address City/[facility]/ZIP Co de Phone Number [facility] * POCT Glucose (11/04/2015 11:01 AM EST) Glucose, POC 144 65 - 199 mg/dL [facility] Comment: Supplemental ranges: <140 mg/dL before meals <180 mg/dL all other times of the day Blood specimen (specimen) 11/04/2015 11:01 AM EST 11/04/2015 11:01 AM EST Kisha Doss MD POINT OF CARE TEST O RDERABLES Performing Organization Address [facility] Co de Phone Number [facility] * POCT Fingerstick Glucose (11/04/2015) Glucose, POC [...] RN) documented in this encounter Care Teams Tow Car Driver Relationship Specialty Start Date End Date Nanda Read MD [facility] D [address] [place] [address] PCP - General 09/14/10 06/06/18 documented as of this encounter
--- OUTSIDE RECORDS SUMMARY | 2024-09-18 16:15 | XMS_ITS | Encounter Summary ---
Author Organization [facility] [address] Care Team Providers Care Warehouse Team Member Name Role Phone Nanda Read MD Primary Care Provider Encounter Details Date Type Department Care Team (Latest Contact Info) Description 04/29/2014 External Results [place] [address] Judith Reinoso MD [facility] [place] [address] Type II or unspecified type diabetes mellitus [...] AM EDT TH Visit (TeleHealth) [place] [address] Wyatt Higgins MD [facility] [place] [address] documented as of this encounter Procedures Procedure [...] Results * (ABNORMAL) External Lab Results (04/18/2014) White Blood Cell 7.7(Community Health Worker al Lab) Red Blood Cell 5.00(Exter nal Lab) 4.00 - 5.20 Hemoglobin 14.5(Exter nal Lab) 12.0 - 16.0 Hematocrit 43.0(Exter nal Lab) 36.0 - 46.0 Platelet 296(Community Health Worker al Lab) 04/18/2014 Judith Reinoso MD CHEMISTRY ORDERAB LES * (ABNORMAL) TSH (04/18/2014) Thyroid Stimulating Hormone 0.074(EXTE RNAL/ABN) Blood specimen (specimen) 04/18/2014 Judith Reinoso MD CHEMISTRY ORDERAB LES * (ABNORMAL) External Lab Results (04/15/2014) Glucose 166(EXTER NAL/ABN) Blood Urea Nitrogen 11(Community Health Worker al Lab) Creatinine 0.40(EXTE RNAL/ABN) Calcium 8.9(Exter nal Lab) 8.7 - 10.7 Sodium 139(Exter nal Lab) 137 - 147 Potassium 3.9(Exter nal Lab) 3.4 - 5.3 Albumin 3.4(A) 3.5 - 5.0 Bilirubin, Total 0.2(Exter nal Lab) 0.1 - 1.4 Alkaline Phosphatase 103(Exter nal Lab) Alanine Aminotransferase 33(Community Health Worker al Lab) 7 - 35 Aspartate Aminotransferase 29(Community Health Worker al Lab) 13 - 35 Vitamin B12 331.0(Ext ernal Lab) 04/15/2014 Nanda Read MD CHEMISTRY ORDERABLES * (ABNORMAL) Hemoglobin A1c (04/15/2014) Hemoglobin A1c 9.3(VERTICAL PUNCH OPERATOR AL/ABN) Blood specimen (specimen) 04/15/2014 Judith Reinoso MD CHEMISTRY ORDERAB LES documented in this encounter Visit Diagnoses Diagnosis Type II or unspecified type diabetes mellitus with neurological manifestations, 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
--- OUTSIDE RECORDS SUMMARY | 2024-09-18 16:15 | XMS_ITS | Encounter Summary ---
Author Organization [facility] Carlos [facility] [place] [address] Care Team Providers Care Instructor Weaving Name Role Phone Nanda Read MD Primary Care Provider Encounter Details Date Type Department Care Team (Late st Contact Info) Description 05/21/2013 Abstract [place] [address] Julio Cesar Wright MD [facility] [place] [address] Social History Tobacco Use Types Packs/Day Years [...] AM EDT TH Visit (TeleHealth) [place] [address] Wyatt Higgins MD [facility] [place] [address] documented as of this encounter Visit Diagnoses Not on filedocumented in this encounter Care Teams Instructor Weaving Relationship Specialty Start Date End Date Nanda Read MD [facility] D [address] [place] [address] PCP - General 09/14/10 06/06/18 documented as of this encounter
--- OUTSIDE RECORDS SUMMARY | 2024-09-18 16:15 | XMS_ITS | Encounter Summary ---
[place] [address] Care Team Providers Care Dark Room Attendant Name Role Phone Nanda Read MD Primary Care Provider [phone] Reason for Visit * Reason Onset Date Comments Other 08/17/2015 Encounter Details Date Type Department Care Team (Late st Contact Info) Description 08/17/2015 Telephone [place] [address] [address] Other Social History Tobacco [...] Visit (TeleHealth) [place] [address] Wyatt Higgins MD [facility] [place] [address] documented as of this encounter Visit Diagnoses Not on filedocumented in this encounter Care Teams Dark Room Attendant Relationship Specialty Start Date End Date Nanda Read MD [facility] D [address] [place] [address] PCP - General 09/14/10 06/06/18 documented as of this encounter
--- OUTSIDE RECORDS SUMMARY | 2024-09-18 16:15 | XMS_ITS | Encounter Summary ---
Author Organization Counts Include [facility] Address [facility] [place] [address] Care Team Providers Care Hand Flesher Name Role Phone Nanda Read MD Primary Care Provider [phone] Encounter Details Date Type Department Care Team (Latest Contact Info) Description 05/23/2013 12:58 PM EDT - 05/23/2013 11:59 PM EDT Hospital [place] [address] Judith Reinoso MD [facility] [place] [address] Discharge Disposition: Home Social History Tobacco Use [...] 1/2 mL 30 x 5/16 Syrg by [facility] [place].(Non-Drug; Combo Route) route 2 times daily. Using with insulin bid 1 Box 4 06/03/2011 04/06/2017 documented as of this encounter Plan of Treatment Upcoming Encounters Date Type Department Care Team (Late st Contact Info) Description 02/19/2025 9:00 AM EDT TH Visit (TeleHealth) [place] [address] Wyatt Higgins MD [facility] [place] [address] documented as of this encounter Procedures Procedure [...] 05/23/2013 1:25 PM EDT COMPREHENSIVE METABOLIC PANEL Routine 05/23/2013 1:25 PM EDT documented in this encounter Results * Cortisol (05/23/2013 1:25 PM EDT) [facility] Cortisol 10.1 mcg/dL [facility] Comment: Reference ranges: ??AM (7-10am): ??6.2-19.4 mcg/dL ??PM (4-8pm): ??2.3-12.3 mcg/dL Blood specimen (specimen) 05/23/2013 1:25 PM EDT 05/23/2013 1:32 PM EDT Narrative Resulting Agency Comment Spec In Lab Judith Reinoso MD CHEMISTRY ORDERAB LES [facility] * (ABNORMAL) Lipid panel (fasting) (05/23/2013 1:25 PM EDT) Cholesterol, Total 196 <=199 mg/dL [facility] Comment: Recommendations of the NCEP Adult Treatment Panel for the following risk cutoff thresholds for the [place] population: Desirable: <200 mg/dL Borderline High: 200-239 mg/dL High: > or = 240 mg/dL Triglyceride 121 <=149 mg/dL [facility] Comment: Reference Range: Normal triglycerides: ??<150 mg/dL Borderline high: ??150-199 mg/dL High: ??200-499 mg/dL Very high: ??>is=296 mg/dL STELLA 2001; 285(19):8673-3945 HDL Cholesterol 41 >=40 mg/dL [facility] Comment: Reference range: ??Low HDL: ?? < 40 mg/dL ??Normal: ?40-60 mg/dL ??Desirable: > 60 mg/dL STELLA 2001; 285(19):2567-8244 LDL Cholesterol 131(H) <=99 mg/dL [facility] Comment: Reference range: ?? Optimal: ?<100 mg/dL ?? Near Optimal/Above Optimal: ?? 100-129 mg/dL ?? Borderline high: ?130-159 mg/dL ?? High: ? 160-189 mg/dL ?? Very high: ?>ak=833 mg/dL STELLA 2001: 285(19):2910-5468 Cholesterol/HDL Ratio 4.8 ratio [facility] Comment: A Cholesterol to HDL ratio below 4:1 is desirable. ??Studies suggest that increased CAD risk occurs at ratios above 5 for females and above 6 for men. ? [place] Heart Association ??(http://www.americanheart.org) ? Franc[place]sca Int Med, 1994; 121:641 ? AM J Med, 1998; 105(1A):48S Blood specimen (specimen) 05/23/2013 1:25 PM EDT 05/23/2013 1:32 PM EDT Narrative Resulting Agency Comment Spec In Lab Judith Reinoso MD CHEMISTRY ORDERAB LES [facility] * (ABNORMAL) Comprehensive metabolic panel (non-fasting) (05/23/2013 1:25 PM EDT) Glucose 74 60 - 199 mg/dL [facility] Comment:Diabetes: >=200 mg/d L plus symptoms Blood Urea Nitrogen 9 8 - 18 mg/dL [facility] [...] - 107 mmol/L [facility] Carbon Dioxide Not Perf 22 - 31 mmol/L [facility] Comment:Add-on request. Samp le too old to perform test. Anion Gap Unable to Calculate 5 - 15 mmol/L [facility] Calcium 9.3 8.5 - 10.5 mg/dL [facility] Protein, Total 7.7 6.4 - 8.3 gm/dL [facility] Albumin 4.0 3.2 - 5.2 gm/dL [facility] Aspartate Aminotransferase 26 0 - 30 unit/L [facility] Alanine Aminotransferase 23 0 - 30 unit/L [facility] Alkaline Phosphatase 95 40 - 104 unit/L [facility] Bilirubin, Total 0.3 0.2 - 1.3 mg/dL [facility] Bilirubin, [...] Lab Judith Reinoso MD CHEMISTRY ORDERAB LES [facility] * Vitamin B12 (05/23/2013 1:25 PM EDT) Vitamin B12 427 207 - 974 pg/mL [facility] Blood specimen (specimen) 05/23/2013 1:25 PM EDT 05/23/2013 1:31 PM EDT Narrative Resulting Agency Comment Spec In Lab Judith Reinoso MD CHEMISTRY ORDERAB LES [facility] * (ABNORMAL) Hemoglobin A1c (05/23/2013 1:25 PM EDT) Hemoglobin A1c 9.0(H) 4.3 - 6.1 % [facility]ILL[facility] Comment: The [place] Diabetes Association (ADA) has stated that HbA1c [...] in Diabetes 2013. Diabetes Care 2013:36;suppl 1:S11-S66. Estimated Average Glucose 212 mg/dL [facility] Comment: eAG equivalents for HbA1c percentages: HbA1c(%) [...] into estimated average glucose values. ??Diabetes Care 2008:31(8):8158-5197. Blood specimen (specimen) 05/23/2013 1:25 PM EDT 05/23/2013 1:31 PM EDT Narrative Resulting Agency Comment Spec In Lab Judith Reinoso MD CHEMISTRY ORDERAB LES [facility] * Thyroid peroxidase antibody (05/23/2013 1:25 PM EDT) Thyroperoxidase Ab <10 <=34 IU/mL [facility] Blood specimen (specimen) 05/23/2013 1:25 PM EDT 05/24/2013 8:31 AM EDT Narrative Resulting Agency Comment Spec In Lab Judith Reinoso MD IMMUNOLOGY ORDERA BLES Performing Organization Address [facility] Co de Phone Number [facility] * Thyroglobulin Antibody (05/23/2013 1:25 PM EDT) Thyroglob Ab <20.0 0.0 - 40.0 IU/mL [facility] Comment: Assay performed is the DPC Immulite Tg-Ab immunometric assay. (Cutoff for TgAb negativity is <20 IU/ml) Blood specimen (specimen) 05/23/2013 1:25 PM EDT 05/24/2013 8:31 AM EDT Narrative Resulting Agency Comment Spec In Lab Judith Reinoso MD LAB SEND OUT ORDE RABLES Performing Organization Address [facility] Co de Phone Number [facility] * TSH (05/23/2013 1:25 PM EDT) Thyroid Stimulating Hormone 1.74 0.27 - 4.20 mcIU/mL [facility] Blood specimen (specimen) 05/23/2013 1:25 PM EDT 05/23/2013 1:31 PM EDT Narrative Resulting Agency Comment Spec In Lab Judith Reinoso MD CHEMISTRY ORDERAB LES [facility] * VIT D Total Evaluation (05/23/2013 1:25 PM EDT) Vitamin D Total 25 OH 47 30 - 100 ng/mL [facility] Comment: Deficient <10 ng/mL Insufficient 10 to [...] Lab Judith Reinoso MD CHEMISTRY ORDERAB LES [facility] documented in this encounter Visit Diagnoses Not on filedocumented in this encounter Care Teams Hand Flesher Relationship Specialty Start Date End Date Nanda Read MD [facility] Carlos [address] [place] [address] PCP - General 09/14/10 06/06/18 documented as of this encounter
--- OUTSIDE RECORDS SUMMARY | 2024-09-18 16:15 | XMS_ITS | Encounter Summary ---
Author Organization [facility] [place] [facility] [place] [address] Care Team Providers Care Salesperson Sheet Music Name Role Phone Nanda Read MD Primary Care Provider [phone] Encounter Details Date Type Department Care Team (Late st Contact Info) Description 05/20/2013 Abstract [place] [address] Julio Cesar Wright MD [facility] [place] [address] Social History Tobacco Use Types Packs/Day Years [...] EDT TH Visit (TeleHealth) [place] [address] Wyatt Higgins MD [facility] [place] [address] documented as of this encounter Visit Diagnoses Not on filedocumented in this encounter Care Teams Salesperson Sheet Music Relationship Specialty Start Date End Date Nanda Read MD [facility] D [address] [place] [address] PCP - General 09/14/10 06/06/18 documented as of this encounter
--- OUTSIDE RECORDS SUMMARY | 2024-09-18 16:15 | XMS_ITS | Encounter Summary ---
Author Organization [facility] [place] [place] [address] Care Team Providers Care Market Research Analyst Name Role Phone Nanda Read MD Primary Care Provider [phone] Encounter Details Date Type Department Care Team (Late st Contact Info) Description 09/22/2014 Telephone [place] [address] Cathy Dillon, MACHINE PACK ASSEMBLER [facility] [place] [address] Social History Tobacco Use Types Packs/Day Years [...] AM EDT TH Visit (TeleHealth) [place] [address] Wyatt Higgins MD [facility] [place] [address] documented as of this encounter Visit Diagnoses Not on filedocumented in this encounter Care Teams Market Research Analyst Relationship Specialty Start Date End Date Nanda Read MD [facility] [address] [place] [address] PCP - General 09/14/10 06/06/18 documented as of this encounter
--- OUTSIDE RECORDS SUMMARY | 2024-09-18 16:15 | XMS_ITS | Encounter Summary ---
[place] [address] Care Team Providers Care Whipped Topping Supervisor Name Role Phone Nanda Read MD Primary Care Provider [phone] Reason for Visit * Reason Onset Date Comments Prior Authorization 05/24/2013 VICTOZA Encounter Details Date Type Department Care Team (Late st Contact Info) Description 05/24/2013 Telephone [place] [address] Lisseth Sheth Prior Authorization (VICTOZA) Social History [...] request: DM Health plan: [place] Authorizing manufacturers service representative name: FAXED Faxed to health plan on: 05/24/13 Health plan decision: Approved Quantity approved: 07/22 Authorization number: Start date: 05/24/2013 End date: 05/24/2014 Patient notified? no Pharmacy notified? yes documented in this encounter Plan of Treatment Upcoming Encounters Date Type Department Care Team (Late st Contact Info) Description 02/19/2025 9:00 AM EDT TH Visit (TeleHealth) [place] [address] Wyatt Higgins MD [facility] [place] [address] documented as of this encounter Visit Diagnoses Not on filedocumented in this encounter Care Teams Whipped Topping Supervisor Relationship Specialty Start Date End Date Nanda Read MD [facility] D [address] [place] [address] PCP - General 09/14/10 06/06/18 documented as of this encounter
--- OUTSIDE RECORDS SUMMARY | 2024-09-18 16:15 | XMS_ITS | Encounter Summary ---
Author Organization [facility] [place] [address] Care Team Providers Care Title Department Manager Name Role Phone Nanda Read MD Primary Care Provider [phone] Encounter Details Date Type Department Care Team (Late st Contact Info) Description 07/11/2014 3:15 PM EDT [place] [address] Korina Cho MD [facility] [place] [address] Memory loss (Primary Dx) Discharge Disposition: Home [...] AM EDT TH Visit (TeleHealth) [place] [address] Wyatt Higgins MD [facility] [place] [address] documented as of this encounter Visit Diagnoses Diagnosis Memory loss- Primary documented in this encounter Care Teams Title Department Manager Relationship Specialty Start Date End Date Nanda Read MD [facility] [address] [place] [address] PCP - General 09/14/10 06/06/18 documented as of this encounter
--- OUTSIDE RECORDS SUMMARY | 2024-09-18 16:15 | XMS_ITS | Encounter Summary ---
[place] [address] Care Team Providers Care Painter Touch Up Name Role Phone Nanda Read MD Primary Care Provider [phone] Reason for Visit * Reason Onset Date Comments Results 05/24/2013 Encounter Details Date Type Department Care Team (Late st Contact Info) Description 05/24/2013 Tele[place] [address] Tracy Tavarez LPN Results Social History Tobacco [...] AM EDT TH Visit (TeleHealth) [place] [address] Wyatt Higgins MD [facility] [place] [address] documented as of this encounter Visit Diagnoses Not on filedocumented in this encounter Care Teams Painter Touch Up Relationship Specialty Start Date End Date Nanda Read MD [facility] D [address] [place] [address] PCP - General 09/14/10 06/06/18 documented as of this encounter
--- OUTSIDE RECORDS SUMMARY | 2024-09-18 16:15 | XMS_ITS | Encounter Summary ---
[place] [address] Care Team Providers Care Acoustical Tile Carpenters Supervisor Name Role Phone Nanda Read MD Primary Care Provider Reason for Visit * Reason Onset Date Comments Other 05/23/2013 Encounter Details Date Type Department Care Team (Late st Contact Info) Description 05/23/2013 [place] [address] Julio Cesar Wright MD [facility] [place] [address] Other Social History Tobacco Use Types Packs/Day [...] AM EDT TH Visit (TeleHealth) [place] [address] Wyatt Higgins MD [facility] [place] [address] documented as of this encounter Visit Diagnoses Not on filedocumented in this encounter Care Teams Acoustical Tile Carpenters Supervisor Relationship Specialty Start Date End Date Nanda Read MD [facility] D [address] [place] [address] PCP - General 09/14/10 06/06/18 documented as of this encounter
--- OUTSIDE RECORDS SUMMARY | 2024-09-18 16:15 | XMS_ITS | Encounter Summary ---
Author Organization [facility] [place] [address] Care Team Providers Care Assembler Engine Name Role Phone Nanda Read MD Primary Care Provider [phone] Encounter Details Date Type Department Care Team (Late st Contact Info) Description 05/22/2013 2:45 PM EDT [place] [address] Julio Cesar Wright MD [facility] [place] [address] Hereditary peripheral neuropathy (Primary Dx); Diabetic peripheral [...] - 05/22/2013 3:10 PM EDT NEUROLOGY CLINIC [facility] M[place] [address] Facsimile: 05/22/2013 Neurology Consultation Patient: Martha Benoit : 1965 Referring provider: Nanda Read MD [facility] [address] [place] [address] Reason for Referral: We are seeing this [...] GI ENDOSCOPY performed by ALISA RICHARDS at [facility] END[facility]COPY ??? Upper gi endoscopy, biopsy 11/16/2011 EGD WITH BIOPSY performed by ALISA RICHARDS at [facility] ENDOSCOPY Medications: Current Outpatient Prescriptions on [...] 1/2 mL 30 x 5/16 Syrg by [facility].(Non-Drug; Combo Route) route 2 times daily. Using [...] ?pesticide Exposure as child. 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 reports that she has never smoked. She [...] was mixed. Romberg was positive. Coordination: Normal [id number], rapid alternating movements are normal in the [...] plan: ?? sensorimotor peripheral neuropathy panel from [facility]; We discussed genetic testing for hereditary neuropathy [...] compounding pharmacy ( there is one in [facility]). Followup with her PCP. I will call [...] AM EDT TH Visit (TeleHealth) [place] [address] Wyatt Higgins MD [facility] [place] [address] documented as of this encounter Procedures Procedure Name Priority Date/Time Associated Diagnosis Comments MISCELLANEOUS LAB REQUEST Routine 05/22/2013 4:48 PM EDT Hereditary peripheral neuropathy [facility] Routine 05/22/2013 4:41 PM EDT documented in this encounter Results * Miscellaneous Lab request (05/22/2013 4:48 PM EDT) Label Request received in lab. [facility] [facility] Specimen of unknown material (specimen) 05/22/2013 4:48 PM EDT 05/22/2013 4:53 PM EDT Julio Cesar Wright MD LAB SEND OUT ORDERAB LES Performing Organization Address [facility] de Phone Number [facility] * [facility] (05/22/2013 4:41 PM EDT) [facility] See Note [facility] Comment: The ordered test is: SensoriMotor Neuropathy Profile-Complete Test performed by: [employer], [address] [address] The test result is: Please see scanned report in Chart Review under the Non- Laboratory Heading. Specimen of unknown material (specimen) 05/22/2013 4:41 PM EDT 05/28/2013 2:12 PM EDT Julio Cesar Wright MD LAB SEND OUT ORDERAB LES Performing Organization Address City/[facility]/ZIP Co de Phone Number [place] [facility] documented in this encounter Visit Diagnoses Diagnosis Hereditary peripheral neuropathy(356.0)- Primary Hereditary peripheral neuropathy Diabetic peripheral neuropathy Type II or unspecified type diabetes mellitus with neurological manifestations, not stated as uncontrolled documented in this encounter Care Teams Assembler Engine Relationship Specialty Start Date End Date Nanda Read MD [facility] [address] [place] [address] PCP - General 09/14/10 06/06/18 documented as of this encounter
--- OUTSIDE RECORDS SUMMARY | 2024-09-18 16:15 | XMS_ITS | Encounter Summary ---
Author Organization [facility] [place] [address] Care Team Providers Care Bow String Maker Name Role Phone Nanda Read MD Primary Care Provider [phone] Reason for Visit * Reason Comments Diabetes Encounter Details Date Type Department Care Team (Late st Contact Info) Description 03/10/2015 1:00 PM EDT Office Visit [place] [address] Judith Reinoso MD [facility] [place] [place] [address] Type II or unspecified type diabetes mellitus [...] 30 x 5/16 Syrg by [facility]Non-Drug; Combo Route) route 2 times daily. Using [...] EDT TH Visit (TeleHealth) [place] [address] Wyatt Higgins MD [facility] [place] [address] documented as of this encounter Visit Diagnoses [...] Deltoid documented in this encounter Care Teams Bow String Maker Relationship Specialty Start Date End Date Nanda Read MD [facility] D [address] [place] [address] PCP - General 09/14/10 06/06/18 documented as of this encounter
--- OUTSIDE RECORDS SUMMARY | 2024-09-18 16:15 | XMS_ITS | Encounter Summary ---
Author Organization [facility] [place] [address] Care Team Providers Care Transition Lead Name Role Phone Nanda Read MD Primary Care Provider [phone] Encounter Details Date Type Department Care Team (Latest Contact Info) Description 03/09/2015 External Results [place] [address] Judith Reinoso MD [facility] [place] [address] Type II or unspecified type diabetes mellitus [...] TH Visit (TeleHealth) [place] [address] Wyatt Higgins MD [facility] [place] [address] documented as of this encounter Procedures Procedure Name Priority Date/Time Associated Diagnosis Comments EXTERNAL LAB CBC CMP THYROID RESULTS PANEL Routine 03/05/2015 U ALBUMIN/CRE RATIO Routine 03/05/2015 Type II or unspecified type diabetes mellitus with neurological manifestations, uncontrolled Unspecified vitamin D deficiency Chronic fatigue documented in this encounter Results * (ABNORMAL) CBC / CMP / Thyroid External Results (03/05/2015) Sodium 141(Exter nal Lab) 137 - 147 Potassium 4.5(Exter nal Lab) 3.4 - 5.3 Chloride 104(Exter nal Lab) 99 - 108 Carbon Dioxide 28(Piledriver Carpenter al Lab) 22 - 29 Blood Urea Nitrogen 12([facility]) Creatinine 0.50(EXTE RNAL/ABN) Calcium 8.9(Exter nal Lab) 8.7 - 10.7 Protein, Total 7.5(Exter nal Lab) 6.4 - 8.2 Albumin 3.9(Exter nal Lab) 3.5 - 5.0 Bilirubin, Total 0.6(Exter nal Lab) 0.1 - 1.4 Bilirubin, Direct 0.4(EXTER NAL/ABN) 0.01 - 0.4 Alkaline Phosphatase 102(Exter nal Lab) Aspartate Aminotransferase 31([facility]) 13 - 35 Alanine Aminotransferase 29([facility]) 7 - 35 Gamma Glutamyl Transferase 17([facility] al Lab) Cholesterol, Total 205(EXTER NAL/ABN) mg/dL Hemoglobin A1c 7.6(EXTER NAL/ABN) Triglyceride 161(EXTER NAL/ABN) mg/dL HDL Cholesterol 35(PROFESSOR OF COUNSELING AL/ABN) md/dL LDL Cholesterol 138(EXTER NAL/ABN) mg/dL 03/05/2015 Judith Reinoso MD EXTERNAL LAB ORDE RABLES * (ABNORMAL) Microalbumin, urine, random (03/05/2015) Creatinine, Urine 162(PROFESSOR OF COUNSELING AL/ABN) Albumin, Urine 39.2(EXTER NAL/ABN) Urine specimen (specimen) 03/05/2015 Judith Reinoso MD URINE ORDERABLES documented in this encounter Visit Diagnoses Diagnosis Type II or unspecified type diabetes mellitus with neurological manifestations, 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
--- OUTSIDE RECORDS SUMMARY | 2024-09-18 16:15 | XMS_ITS | Encounter Summary ---
Author Organization [facility] [place] [address] Care Team Providers Care Patient Attendant Name Role Phone Nanda Read MD Primary Care Provider [phone] Reason for Visit * Reason Comments Diabetes Encounter Details Date Type Department Care Team (Late st Contact Info) Description 05/23/2013 3:05 PM EDT Office [place] [address] Judith Reinoso MD [facility] [place] [place] [address] Type II or unspecified type diabetes mellitus [...] 1/2 mL 30 x 5/[address] [facility]Non-Drug; Combo Route) route 2 times daily. Using [...] hour(s)) MISCELLANEOUS LAB REQUEST Component Value Range [facility] Result Request received in lab. TSH [...] TH Visit (TeleHealth) [place] [address] Wyatt Higgins MD [facility] [place] [place] [address] documented as of this encounter Visit Diagnoses Diagnosis Type II or unspecified type diabetes mellitus without mention of complication, uncontrolled- Primary Obesity Obesity, unspecified Proximal muscle weakness Muscle weakness (generalized) documented in this encounter Care Teams Patient Attendant Relationship Specialty Start Date End Date Nanda Read MD [facility] [address] [place] [address] PCP - General 09/14/10 06/06/18 documented as of this encounter
--- OUTSIDE RECORDS SUMMARY | 2024-09-18 16:15 | XMS_ITS | Encounter Summary ---
[place] [address] Care Team Providers Care Typing Element Machine Operator Name Role Phone Nanda Read MD Primary Care Provider [phone] Encounter Details Date Type Department Care Team (Late st Contact Info) Description 03/10/2015 Telephone [place] [address] Tracy Tavarez LPN Social History Tobacco Use [...] AM EDT TH Visit (TeleHealth) [place] [address] Wyatt Higgins MD [facility] [place] [address] documented as of this encounter Visit Diagnoses Not on filedocumented in this encounter Care Teams Typing Element Machine Operator Relationship Specialty Start Date End Date Nanda Read MD [facility] D [address] [place] [address] PCP - General 09/14/10 06/06/18 documented as of this encounter
--- OUTSIDE RECORDS SUMMARY | 2024-09-18 16:15 | XMS_ITS | Encounter Summary ---
Author Organization [facility] [place] [address] Care Team Providers Care Senior Maintenance Mechanic Name Role Phone Nanda Read MD Primary Care Provider [phone] Encounter Details Date Type Department Care Team (Late st Contact Info) Description 08/17/2015 Notes Only [place] [address] Cathy Dillon, RUBBER AND PLASTICS WORKER [facility] [place] [address] Social History Tobacco Use Types Packs/Day Years [...] AM EDT TH Visit (TeleHealth) [place] [address] Wyatt Higgins MD [facility] [place] [address] documented as of this encounter Visit Diagnoses Not on filedocumented in this encounter Care Teams Senior Maintenance Mechanic Relationship Specialty Start Date End Date Nanda Read MD [facility] D [address] [place] [address] PCP - General 09/14/10 06/06/18 documented as of this encounter
--- OUTSIDE RECORDS SUMMARY | 2024-09-18 16:15 | XMS_ITS | Encounter Summary ---
Author Organization [facility] [place] [address] Care Team Providers Care Catholic Priest Name Role Phone Nanda Read MD Primary Care Provider Reason for Visit * Reason Comments Skin Lesion Encounter Details Date Type Department Care Team (Late st Contact Info) Description 12/29/2014 2:30 PM EDT Office Visit Dermatology at [address] [address] Galdino Gilliland MD [address] [facility] [place] [address] Seborrheic keratosis Discharge Disposition: Home Social History [...] TH Visit (TeleHealth) [place] [address] Wyatt Higgins MD [facility] [place] [address] documented as of this encounter Visit Diagnoses Diagnosis Seborrheic keratosis Other seborrheic keratosis documented in this encounter Care Teams Catholic Priest Relationship Specialty Start Date End Date Nanda Read MD [facility] [address] [place] [address] PCP - General 09/14/10 06/06/18 documented as of this encounter
--- OUTSIDE RECORDS SUMMARY | 2024-09-18 16:15 | XMS_ITS | Encounter Summary ---
Author Organization [facility] [place] [address] Care Team Providers Care Stripping And Booking Machine Operator Name Role Phone Nanda Read MD Primary Care Provider [phone] Encounter Details Date Type Department Care Team (Latest Contact Info) Description 10/09/2014 Multidisciplinary Ca re Committee [place] [address] Cathy Dillon, BRAILLE OPERATOR [facility] [place] [address] Social History Tobacco Use Types Packs/Day Years [...] + Evaluation by a member of the [facility] Bariatric Surgery Program previously: no Staff present [...] GI ENDOSCOPY performed by ALISA RICHARDS at [facility] ENDOSCOPY ??? Upper gi endoscopy, biopsy 11/16/2011 EGD WITH BIOPSY performed by ALISA RICHARDS at [facility] ENDOSCOPY Plan of care: approved to proceed with evaluation for gastric bypass documented in this encounter Plan of Treatment Upcoming Encounters Date Type Department Care Team (Late st Contact Info) Description 02/19/2025 9:00 AM EDT TH Visit (TeleHealth) [place] [address] Wyatt Higgins MD [facility] [place] [address] documented as of this encounter Visit Diagnoses Not on filedocumented in this encounter Care Teams Stripping And Booking Machine Operator Relationship Specialty Start Date End Date Nanda Read MD [facility] Carlos [address] [place] [address] PCP - General 09/14/10 06/06/18 documented as of this encounter
--- OUTSIDE RECORDS SUMMARY | 2024-09-18 16:16 | XMS_ITS | Encounter Summary ---
Author Organization [facility] [place] [address] Care Team Providers Care Furniture Removalist Name Role Phone Nanda Read MD Primary Care Provider [phone] Encounter Details Date Type Department Care Team (Late st Contact Info) Description 11/01/2010 10:30 AM EST [place] [address] Julio Cesar Wright MD [facility] [place] [address] Discharge Disposition: Home Social History Tobacco Use [...] TH Visit (TeleHealth) [place] [address] Wyatt Higgins MD [facility] [place] [address] documented as of this encounter Visit Diagnoses Not on filedocumented in this encounter Care Teams Furniture Removalist Relationship Specialty Start Date End Date Nanda Read MD [facility] [address] [place] [address] PCP - General 09/14/10 06/06/18 documented as of this encounter
--- OUTSIDE RECORDS SUMMARY | 2024-09-18 16:16 | XMS_ITS | Encounter Summary ---
[place] [address] Care Team Providers Care Manager Field Service Name Role Phone Nanda Read MD Primary Care Provider [phone] Reason for Visit * Reason Onset Date Comments Results 06/05/2012 Encounter Details Date Type Department Care Team (Late st Contact Info) Description 06/05/2012 Telephone [place] [address] Tracy Tavarez LPN Results Social History Tobacco [...] EDT TH Visit (TeleHealth) [place] [address] Wyatt Higgins MD [facility] [place] [address] documented as of this encounter Visit Diagnoses Not on filedocumented in this encounter Care Teams Manager Field Service Relationship Specialty Start Date End Date Nanda Read MD [facility] D [address] [place] [address] PCP - General 09/14/10 06/06/18 documented as of this encounter
--- OUTSIDE RECORDS SUMMARY | 2024-09-18 16:16 | XMS_ITS | Encounter Summary ---
Author Organization [facility] [place] [address] Care Team Providers Care Motorcycle Designer Name Role Phone Ruth Munoz Lilibeth JUAREZ Primary Care Provider + Encounter Details Date Type Department Care Team (Late st Contact Info) Description 07/21/2010 Orders Only [place] [address] Jace Jacobson MD [facility] DR GASTROENTEROLOGY [place] [address] Social History Tobacco Use Types Packs/Day Years [...] AM EDT TH Visit (TeleHealth) [place] [address] Wyatt Higgins MD [facility] [place] [address] documented as of this encounter Procedures Procedure Name Priority Date/Time Associated Diagnosis Comments SURGICAL PATHOLOGY REPORT Routine 07/21/2010 1:00 PM EDT documented in this encounter Results * Surgical Pathology Report (07/21/2010 1:00 PM EDT) Surgical Pathology Report [id number] ? Location: 4T The signing pathologist has (i) examined the relevant preparation(s) for the specimen(s) and (ii) rendered or confirmed the diagnosis(es). . ?Pathology Surgical Pathology Final Report Clinical Information Specimen Submitted: A - Stomach, antrum. Clinical History: Antrum, ? intestinal metaplasia of the antrum Clinical Diagnosis: Gastric polyp, intestinal metaplasia at [facility] needs BX Gross Description Labeled/Fixativ e: ? [...] report in rendering the final pathologic diagnosis. [facility] 07/21/2010 1:00 PM EDT Jace Jacobson MD PATHOLOGY/CYTOLOGY [facility] documented in this encounter Visit Diagnoses Not on filedocumented in this encounter Care Teams Motorcycle Designer Relationship Specialty Start Date End Date Ruth Munoz, TISSUE SPECIALIST [address] [place] [address] PCP - General Family Medicine 02/05/19 documented as of this encounter
--- OUTSIDE RECORDS SUMMARY | 2024-09-18 16:16 | XMS_ITS | Encounter Summary ---
Author Organization [facility] [place] [address] Care Team Providers Care Student Teacher Name Role Phone Nanda Read MD Primary Care Provider Encounter Details Date Type Department Care Team (Late st Contact Info) Description 12/24/2010 1:30 PM EST Office Visit [place] [address] Judith Reinoso MD [facility] [place] [address] Discharge Disposition: Home Social History Tobacco Use [...] EDT TH Visit (TeleHealth) [place] [address] Wyatt Higgins MD [facility] [place] [address] documented as of this encounter Procedures Procedure Name Priority Date/Time Associated Diagnosis Comments VITAMIN D, 25-HYDROXY Routine 12/24/2010 1:50 PM EST [facility] 12/24/2010 1:50 PM EST HEMOGLOBIN A1C [facility] 12/24/2010 1:50 PM EST BASIC METABOLIC PANEL [facility] 12/24/2010 1:50 PM EST documented in this encounter Results * (ABNORMAL) BASIC METABOLIC PANEL (NON-FASTING) (12/24/2010 1:50 PM EST) Glucose 209(H) 60 - 199 mg/dL CERNER MILLENNIUM [...] 100 98 - 107 mmol/L CERNER MILLENNIUM Carbon Dioxide 25 22 - 31 mmol/L CERNER MILLENNIUM Anion Gap 11 5 - 15 mmol/L CERNER MILLENNIUM Calcium 9.0 8.5 - 10.5 mg/dL CERNER MILLENNIUM Est Glomerular Filtration Rate >60 >=60 CERNER MILLENNIUM Comment: The National [...] MD CHEMISTRY ORDERAB LES Performing Organization Address City/[facility]/ZIP Co de Phone Number [facility] * TSH (12/24/2010 1:50 PM EST) Thyroid Stimulating Hormone 1.73 0.27 - 4.20 mcIU/mL [facility] Comment: Cord Blood Reference Range: ??0.35 23.00 mcIU/mL Blood specimen (specimen) 12/24/2010 1:50 PM EST 12/24/2010 2:00 PM EST Judith Reinoso MD CHEMISTRY ORDERAB LES [facility] * (ABNORMAL) HEMOGLOBIN A1C (12/24/2010 1:50 PM EST) Hemoglobin A1c 8.5(H) 4.3 - 6.1 % [facility] Estimated Average Glucose 197 mg/dL [facility] Comment: eAG equivalents for HbA1c [...] into estimated average glucose values. ??Diabetes Care 2008:31(8):1527-3856. Blood specimen (specimen) 12/24/2010 1:50 PM EST 12/24/2010 1:59 PM EST Judith Reinoso MD CHEMISTRY ORDERAB LES Performing Organization Address City/State/[facility] Co de Phone Number [facility] * VITAMIN D 25 HYDROXY (12/24/2010 1:50 PM EST) 25-Hydroxy D2 26 ng/mL [facility] Comment: Test Performed by: [facility] [employer] [address] [address] Software Team Leader: Monisha Lozada, Ph.D. 25-Hydroxy D3 2.5 ng/mL [facility] Comment: Test Performed by: [facility] [employer] [address] [address] Software Team Leader: Monisha Lozada, Ph.D. Vitamin D Total 25 OH 29 ng/mL [facility] Comment: -- REFERENCE VALUE -- 25-HYDROXY D TOTAL (D2+D3) Optimum levels in the normal population are 25-80 Test Performed by: [facility] [place] [address] Software Team Leader: Monisha Lozada, Ph.D. Blood specimen (specimen) 12/24/2010 1:50 PM EST 12/24/2010 2:54 PM EST Judith Reinoso MD CHEMISTRY ORDERAB LES [facility] documented in this encounter Visit Diagnoses Not on filedocumented in this encounter Care Teams Student Teacher Relationship Specialty Start Date End Date Nanda Read MD [facility] D [address] [place] [address] PCP - General 09/14/10 06/06/18 documented as of this encounter
--- OUTSIDE RECORDS SUMMARY | 2024-09-18 16:16 | XMS_ITS | Encounter Summary ---
Author Organization [facility] [place] [address] Care Team Providers Care Collar Tailor Name Role Phone Nanda Read MD Primary Care Provider [phone] Reason for Visit * Reason Comments Diabetes Vitamin D Deficiency Encounter Details Date Type Department Care Team (Late st Contact Info) Description 11/07/2011 10:30 AM EST Office Visit [place] [address] Judith Reinoso MD [facility] [place] [address] DM neuro manif type II, uncontrolled (Primary [...] 4:19 PM EST At approx 1150, exit financial secretary called into nursing desk saying this pt [...] 4 ??? 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
--- OUTSIDE RECORDS SUMMARY | 2024-09-18 16:16 | XMS_ITS | Encounter Summary ---
Author Organization [facility] [place] [address] Care Team Providers Care Business Enterprise Officer Name Role Phone Nanda Read MD Primary Care Provider [phone] Reason for Visit * Reason Comments Diabetes Encounter Details Date Type Department Care Team (Late st Contact Info) Description 07/19/2011 9:00 AM EDT Office Visit [place] [address] Judith Reinoso MD [facility] [place] [address] DM w/o complication type II, uncontrolled (Primary [...] EDT Subjective: Endocrine Clinic Martha Benoit 1965 [id number] Date: 07/19/11 PCP: Siena READ MD Provided by: Judith Reinoso MD Patient ID: Martha Benoit is a 45 y.o. female. HPI Reason for visit: Follow-up diabetes Diabetes treatment regimen: U-500 0.1ml (50 units) bid FSBG: average 140 over the past 2 weeks, ranging between 50s-200s mg/dl typically at target -150 range Most recent HA1c: 8.3% on 05/20/11 [...] 4 ??? ergocalciferol (ERGOCALCIFEROL) 50,000 unit capsule 92840 UNIT = 1 Capsule(s) , PO, twice [...] 1/2 mL 30 x 5/16 Syrg by [facility] [place] [facility].(Non-Drug; Combo Route) route [...] AM EDT TH Visit (TeleHealth) [place] [address] Wyatt Higgins MD [facility] [place] [address] documented as of this encounter Visit Diagnoses Diagnosis Type II or unspecified type diabetes mellitus without mention of complication, uncontrolled- Primary documented in this encounter Care Teams Business Enterprise Officer Relationship Specialty Start Date End Date Nanda Read MD [facility] [address] [place] [address] PCP - General 09/14/10 06/06/18 documented as of this encounter
--- OUTSIDE RECORDS SUMMARY | 2024-09-18 16:16 | XMS_ITS | Encounter Summary ---
Author Organization [facility] [place] [address] Care Team Providers Care Metal Fabricating Inspector Name Role Phone Nanda Read MD Primary Care Provider [phone] Reason for Visit * Reason Comments Diabetes Encounter Details Date Type Department Care Team (Late st Contact Info) Description 05/29/2012 11:00 AM EDT Office [place] [address] Judith Reinoso MD [facility] [place] [address] DM neuro manif type II, uncontrolled (Primary [...] 1/2 mL 30 x 5/16 Syrg by [facility].(Non-Drug; Combo Route) route 2 times daily. Using with insulin bid 1 Box 4 ??? ergocalciferol (ERGOCALCIFEROL) 50,000 unit capsule 23997 UNIT = 1 Capsule(s) , PO, twice WEEKly on Mon and Mon ??? 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
--- OUTSIDE RECORDS SUMMARY | 2024-09-18 16:16 | XMS_ITS | Encounter Summary ---
Author Organization [facility] [place] [address] Care Team Providers Care Steel Pourer Helper Name Role Phone Nanda Read MD Primary Care Provider Reason for Visit * Reason Onset Date Comments Medication Refill 03/24/2011 Encounter Details Date Type Department Care Team (Late st Contact Info) Description 03/24/2011 Refill [place] [address] Judith Reinoso MD [facility] [place] [address] Social History Tobacco Use Types Packs/Day Years [...] EDT TH Visit (TeleHealth[place] [address] Wyatt Higgins MD [facility] [place] [address] documented as of this encounter Visit Diagnoses Not on filedocumented in this encounter Care Teams Steel Pourer Helper Relationship Specialty Start Date End Date Nanda Read MD [facility] [address] [place] [address] PCP - General 09/14/10 06/06/18 documented as of this encounter
--- OUTSIDE RECORDS SUMMARY | 2024-09-18 16:16 | XMS_ITS | Encounter Summary ---
Author Organization [facility] [place] [address] Care Team Providers Care Gyn Physician Name Role Phone Nanda Read MD Primary Care Provider [phone] Encounter Details Date Type Department Care Team (Late st Contact Info) Description 11/16/2011 3:45 PM EST - 11/16/2011 4:15 PM EST [place] [address] Alisa Richards MD [facility] [address] [place] [address] UPPER GI ENDOSCOPY Social History Tobacco Use [...] GI ENDOSCOPY: WHAT TO EXPECT AT HOME (SWISS) documented in this encounter Medications at Time [...] 1/2 mL 30 x 16 Syrg by [facility].(Non-Drug; Combo Route) route 2 times daily. Using [...] AM EDT TH Visit (TeleHealth) [place] [address] Wyatt Higgins MD [facility] [place] [address] documented as of this encounter Procedures Procedure [...] 5:12 PM EST) Surgical Pathology Report ? [facility] ? Provider: ?? ALISA RICHARDS ? Pt. Name: ?? JO JONES ? Acc #: ?[id number] ?Pt. ? Col Date: ?? 11/16/2011 ? [...] ? ---Clinical Information--- ? Specimen Submitted: ? [facility] ? Provider: ?? ALISA RICHARDS ? Pt. Name: ?? JO JONES ? Acc #: ?[id number] ?Pt. ? Col Date: ?? 11/16/2011 ? /Sex: ?1965,(45 years),Female ? Rec Date: ?? 11/16/2011 ? LOC: ?4T ? SURGICAL PATHOLOGY ? A - Stomach ? Clinical History/Diagnosis: ? Dyspepsia, ELAINE. ??Random biopsy, erosions noted, erythema: ??? HP CERNER MILLENNIUM 11/16/2011 5:12 PM EST Alisa Richards MD PATHOLOGY/CYTOLOGY O SHAYAN Performing Organization Address [facility] Co de Phone Number [facility] * Specimen to Pathology (surgical or derm) (11/16/2011 4:40 PM EST) AP Specimen 11/16/2011 4:40 PM EST 11/16/2011 4:41 PM EST Narrative CERNER MILLENNIUM - 11/16/2011 4:40 PM EST Specimen requisition ordered. ??Separate Pathology report to follow Alisa Richards MD PATHOLOGY/CYTOLOGY O SHAYAN Performing Organization Address [facility] Co de Phone Number [facility] * UPPER GI ENDOSCOPY (11/16/2011 3:58 PM EST) UPPER GI ENDOSCOPY [facility] Endoscopy Patient Name: Jo Cy ? Procedure Date: 11/16/2011 3:58 PM ? Date of : 1965 ? Age: 45 ? Order #: [id number] ? Procedure: ? Upper GI endoscopy Indications: ? Heartburn, Dyspepsia; followup to EGD ? June 2010 showing Grade A ? esophagitis Providers: ? Alisa Richards MD, Kimberly Borja, ? RN, Nixon Romero, Barking Machine Feeder Referring : ?Nanda Read MD Requesting Provider: [...] LAB USE ONLY (11/16/2011 3:10 PM EST) Glucose, POC 64 60 - 199 mg/dL [facility] Comment: Supplemental ranges: <110 mg/dL before meals <200 mg/dL all other times of the day Blood specimen (specimen) 11/16/2011 3:10 PM EST 11/16/2011 3:10 PM EST Alisa Richards MD POINT OF CARE TEST O RDERABLES [facility] documented in this encounter Visit Diagnoses Not on filedocumented in this encounter Active and Recently Administered Medications Care Teams Gyn Physician Relationship Specialty Start Date End Date Nanda Read MD [facility] D [address] [place] [address] PCP - General 09/14/10 06/06/18 documented as of this encounter
--- OUTSIDE RECORDS SUMMARY | 2024-09-18 16:16 | XMS_ITS ---
Author Organization [facility] [place] [address] Care Team Providers Care Automated Weaver Name Role Phone Ruth Munoz APRN Primary Care Provider + Dermatology Status:Enrolled (Active) Start date:05/13/2022 Enrollment date:05/13/2022 Enrollment reason:Enrolled - Currently Fills with Specialty Current support & services provided:Clinical Management, Refill Management Linked medications:secukinumab (Active) Linked problems:Psoriasis (Active) Continued Care and Services Coordination
--- OUTSIDE RECORDS SUMMARY | 2024-09-18 16:16 | XMS_ITS | Encounter Summary ---
Author Organization [facility] [place] [address] Care Team Providers Care Sport Internship Name Role Phone Nanda Read MD Primary Care Provider [phone] Reason for Visit * Reason Comments Diabetes Encounter Details Date Type Department Care Team (Late st Contact Info) Description 06/03/2011 9:00 AM EDT Office [place] [address] Judith Reinoso MD [facility] [place] [address] DM w/o complication type I, uncontrolled (Primary [...] Martha Benoit is a 45 y.o. female. [facility] Endocrine Clinic Martha Benoit 1965 [id number] Date: 06/03/11 PCP: NANDA READ MD Provided [...] 02/19/10: 25vitamin D = 51-> 29 (12/31)->43 (05/02)... on vitamin D 50,000 iu 2x/ week [...] Obesity -> going for gastric bypass at [facility] ? ? CIS - severe generalized peripheral [...] PRN ??? 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
--- OUTSIDE RECORDS SUMMARY | 2024-09-18 16:16 | XMS_ITS | Encounter Summary ---
Author Organization [facility] [place] [address] Care Team Providers Care Director Of Admissions Name Role Phone Nnada Read MD Primary Care Provider [phone] Encounter Details Date Type Department Care Team (Latest Contact Info) Description 07/03/2012 10:14 AM EDT - 07/03/2012 11:59 PM EDT Hospital Encounter Non-[place] [address] CLINIC, Nanda Hale MD [facility] [address] [place] [address] Chest pain Discharge Disposition: Home [...] 1/2 mL 30 x 03/07 Syrg by [facility].(Non-Drug; Combo Route) route 2 times daily. Using with insulin bid 1 Box 4 06/03/2011 04/06/2017 documented as of this encounter Plan of Treatment Upcoming Encounters Date Type Department Care Team (Late st Contact Info) Description 02/19/2025 9:00 AM EDT TH Visit (TeleHealth) [place] [address] Wyatt Higgins MD [facility] [place] [address] documented as of this encounter Procedures Procedure [...] ? ROBERT Mustafa ?(Age): 1965(46) Med Rec#: ?[id number] ? Sex: ?F ? [place] [facility] ? Ht / Wt: ??157(cm)/109(kg) Pt. Loc: ? Echo Lab ? BSA: ?2.18 Study Date: ?07/03/2012 ? Pt. Type: Outpatient Tape: ? Referring: Nanda Read Software Applications Specialist: Tj Sibley Software Applications Specialist 2: Jairon Leslie ([id number]) Nurse: Destiny Walls Diagnosis: ??Chest pain (786.50) CPT Code(s): ??Stress Echo (40102), ??Color Doppler (05600), ??Doppler LTD (15273), ??ECG Interpretation (29483), ??Optison ([id number]), Indication(s): ??Chest Pain Medication(s): ?? Rhythm: Stage [...] ?Normal ?Normal ? Mid-Inferoseptal ?Normal ?Normal ? [place]-Septal ? Normal ?Normal ? [place]-Anterior ? Normal ?Normal ? [place]-Lateral ?Normal ?Normal ? [place]-Inferior ? Normal ?Normal ? [place]-Tip ?Normal ?Normal ? Chambers ?Value ?Units (Range) [...] 07/03/2012 12:55:46 Images reviewed and interpretation verified [facility] Cardiac Ultrasound Laboratory Procedure Note Oleg Lynch MD - 07/03/2012 Procedure: Stress Echocardiogram Patient: ROBERT Mustafa DOB(Age): 1965(46) Med Rec#: [id number] Sex: F [place] Loc: [facility] Ht / Wt: 157(cm)/109(kg) Pt. Loc: Echo Lab BSA: 2.18 Study Date: 07/03/2012 Pt. Type: Outpatient Tape: Referring: Nanda Read Software Applications Specialist: Tj Sibley Software Applications Specialist 2: Jairon Leslie ([id number]) Nurse: Destiny Walls Diagnosis: Chest pain (786.50) CPT Code(s): Stress Echo (07048), Color Doppler (23090), Doppler LTD (50425), ECG Interpretation (53743), Optison (33631QQ), Indication(s): Chest Pain Medication(s): Rhythm: Stage HR [...] Normal Mid-Inferior Normal Normal Mid-Inferoseptal Normal Normal [place]-Septal Normal Normal [place]-Anterior Normal Normal [place]-Lateral Normal Normal [place]-Inferior Normal Normal [place]-Tip Normal Normal Chambers Value Units (Range) LV [...] 07/03/2012 12:55:46 Images reviewed and interpretation verified [facility] Cardiac Ultrasound Laboratory Nanda A Jacek WILSON [...] mLs documented in this encounter Care Teams Director Of Admissions Relationship Specialty Start Date End Date Nanda Read MD [facility] [address] [place] [address] PCP - General 09/14/10 06/06/18 documented as of this encounter
--- OUTSIDE RECORDS SUMMARY | 2024-09-18 16:16 | XMS_ITS ---
Author Organization Unknown Address [address] [place] [phone] Phone Care Team Providers Care Dice Maker Name Role Phone KARLY Mcelroy Attending Unavailable [...] D Wednesday, June 08, 2022 11:11:49 AM [id number] Electronically Reviewed and Signed By: CATHERINE TRACEY MD 06/11/22 10:46 Copy for: KARLY Mcelroy via fax Copy for: 185 HEALTH INFORMATION MGMT Social History Type Status Start Date End Date Code Code Syst em Smoking History Never smoker (Never Smoked) [id number] SNOMED CT Sex Female Hospital Discharge Instructions [...]
--- OUTSIDE RECORDS SUMMARY | 2024-09-18 16:16 | XMS_ITS | Encounter Summary ---
Author Organization [facility] [place] [address] Care Team Providers Care Cena Name Role Phone Nanda Read MD Primary Care Provider Encounter Details Date Type Department Care Team (Late st Contact Info) Description 11/16/2011 4:14 PM EST Anesthesia Event [place] [address] Zuleyma Butts MD [facility] [place] [address] Anesthesia Record Procedure Summary Procedure Name Responsible [...] risks discussed with patient. Plan discussed with ADMINISTRATIVE ACCOUNTANT. documented in this encounter Miscellaneous Notes * [...] AM EDT TH Visit (TeleHealth) [place] [address] Wyatt Higgins MD [facility] [place] [address] documented as of this encounter Visit Diagnoses Not on filedocumented in this encounter Care Teams Cena Relationship Specialty Start Date End Date Nanda Read MD [facility] [address] [place] [address] PCP - General 09/14/10 06/06/18 documented as of this encounter
--- OUTSIDE RECORDS SUMMARY | 2024-09-18 16:16 | XMS_ITS | Encounter Summary ---
Author Organization [facility] [place] [address] Care Team Providers Care Rural Mail Carrier Name Role Phone Nanda Read MD Primary Care Provider Encounter Details Date Type Department Care Team (Late st Contact Info) Description 05/30/2012 External Results [place] [address] Judith Reinoso MD [facility] [place] [address] Social History Tobacco Use Types Packs/Day Years [...] AM EDT TH Visit (TeleHealth) [place] [address] Wyatt Higgins MD [facility] [place] [address] documented as of this encounter Procedures Procedure Name Priority Date/Time Associated Diagnosis Comments LAB SCAN Routine 05/26/2012 documented in this encounter Results * Scan Doc: Lab (05/26/2012) Judith Reinoso MD MEDIA MGR SCAN EX T ORDR/RSLT documented in this encounter Visit Diagnoses Not on filedocumented in this encounter Care Teams Rural Mail Carrier Relationship Specialty Start Date End Date Nanda Read MD [facility] D [address] [place] [address] PCP - General 09/14/10 06/06/18 documented as of this encounter
--- OUTSIDE RECORDS SUMMARY | 2024-09-18 16:16 | XMS_ITS | Encounter Summary ---
Author Organization [facility] [place] [address] Care Team Providers Care 1St Pressman On Web Press Name Role Phone Nanda Read MD Primary Care Provider Encounter Details Date Type Department Care Team (Late st Contact Info) Description 07/18/2011 Abstract [place] [address] Kassie Evans, RN History of kidney stones-bilateral; [...] AM EDT TH Visit (TeleHealth) [place] [address] Wyatt Higgins MD [facility] DR NEUROLOGY DEPT [place], [place] [address] documented as of this encounter Visit Diagnoses Diagnosis History of kidney stones-bilateral Personal history of urinary calculi Obesity Obesity, unspecified Cervical cancer Malignant neoplasm of cervix uteri, unspecified site documented in this encounter Care Teams 1St Pressman On Web Press Relationship Specialty Start Date End Date Nanda Read MD [facility] [address] [place] [address] PCP - General 09/14/10 06/06/18 documented as of this encounter
--- OUTSIDE RECORDS SUMMARY | 2024-09-18 16:16 | XMS_ITS | Encounter Summary ---
Author Organization [facility] [place] [address] Care Team Providers Care Living Coach Name Role Phone Nanda Read MD Primary Care Provider Reason for Visit * Reason Onset Date Comments Medication Refill 06/03/2011 Encounter Details Date Type Department Care Team (Late st Contact Info) Description 06/03/2011 [place] [address] Judith Reinoso MD [facility] [place] [address] Social History Tobacco Use Types Packs/Day Years [...] AM EDT TH Visit (TeleHealth) [place] [address] Wyatt Higgins MD [facility] [place] [address] documented as of this encounter Visit Diagnoses Not on filedocumented in this encounter Care Teams Living Coach Relationship Specialty Start Date End Date Nanda Read MD [facility] Carlos [address] [place] [address] PCP - General 09/14/10 06/06/18 documented as of this encounter
--- OUTSIDE RECORDS SUMMARY | 2024-09-18 16:16 | XMS_ITS | Encounter Summary ---
Author Organization [facility] [place] [address] Care Team Providers Care Dope And Fabric Worker Name Role Phone Nanda Read MD Primary Care Provider [phone] Reason for Visit * Reason Onset Date Comments Questions 11/18/2011 re Vitamin D Encounter Details Date Type Department Care Team (Late st Contact Info) Description 11/18/2011 Telephone [place] [address] Judith Reinoso MD [facility] [place] [place] [address] Questions (re Vitamin D) Social History Tobacco [...] and instructions. Pt uses [facility] in [place], [place] documented in this encounter Plan of Treatment Upcoming Encounters Date Type Department Care Team (Late st Contact Info) Description 02/19/2025 9:00 AM EDT TH Visit (TeleHealth) [place] [address] Wyatt Higgins MD [facility] [place] [address] documented as of this encounter Visit Diagnoses Not on filedocumented in this encounter Care Teams Dope And Fabric Worker Relationship Specialty Start Date End Date Nanda Read MD [facility] Carlos [address] [place] [address] PCP - General 09/14/10 06/06/18 documented as of this encounter
--- OUTSIDE RECORDS SUMMARY | 2024-09-18 16:16 | XMS_ITS | Encounter Summary ---
Author Organization [facility] [place] [address] Care Team Providers Care Manager Economic Name Role Phone Nanda Read MD Primary Care Provider Reason for Visit * Reason Onset Date Comments Labs Only 05/09/2011 Encounter Details Date Type Department Care Team (Late st Contact Info) Description 05/09/2011 [place] [address] Judith Reinoso MD [facility] [place] [address] Labs Only Social History Tobacco Use Types [...] AM EDT TH Visit (TeleHealth) [place] [address] Wyatt Higgins MD [facility] [place] [address] documented as of this encounter Visit Diagnoses Diagnosis Type II or unspecified type diabetes mellitus without mention of complication, uncontrolled Fatigue Other malaise and fatigue documented in this encounter Care Teams Manager Economic Relationship Specialty Start Date End Date Nanda Read MD [facility] [address] [place] [address] PCP - General 09/14/10 06/06/18 documented as of this encounter
--- OUTSIDE RECORDS SUMMARY | 2024-09-18 16:16 | XMS_ITS | Encounter Summary ---
Author Organization [facility] Carlos [place] [address] Care Team Providers Care Supervisor Cutting And Sewing Room Name Role Phone Nanda Read MD Primary Care Provider [phone] Encounter Details Date Type Department Care Team (Latest Contact Info) Description 11/16/2011 2:07 PM EST - 11/16/2011 5:10 PM EST Hospital [place] [address] Alisa Richards MD [facility] [place] [address] Discharge Disposition: Home Social History Tobacco Use [...] GI ENDOSCOPY: WHAT TO EXPECT AT HOME (JAPANESE) documented in this encounter Medications at Time [...] 1/2 mL 30 x 03/07 Syrg by [facility].(Non-Drug; Combo Route) route 2 times [...] AM EDT TH Visit (TeleHealth) [place] [address] Wyatt Higgins MD [facility] [place] [address] documented as of this encounter Procedures Procedure [...] 5:12 PM EST) Surgical Pathology Report ? [facility] ? Provider: ?? ALISA RICHARDS ? Pt. Name: ?? JO JONES ? Acc #: ?[id number] ?Pt. ? Col Date: ?? 11/16/2011 ? [...] ? ---Clinical Information--- ? Specimen Submitted: ? [facility] ? Provider: ?? ALISA RICHARDS ? Pt. Name: ?? JO JONES ? Acc #: ?[id number] ?Pt. ? Col Date: ?? 11/16/2011 ? /Sex: ?1965,(45 years),Female ? Rec Date: ?? 11/16/2011 ? LOC: ?4T ? SURGICAL PATHOLOGY ? A - Stomach ? Clinical History/Diagnosis: ? Dyspepsia, ELAINE. ??Random biopsy, erosions noted, erythema: ??? HP CERNER MILLENNIUM 11/16/2011 5:12 PM EST Alisa Richards MD PATHOLOGY/CYTOLOGY O SHAYAN Performing Organization Address [facility] Co de Phone Number KENDALL CARREROIUM * Specimen to Pathology (surgical or derm) (11/16/2011 4:40 PM EST) AP Specimen 11/16/2011 4:40 PM EST 11/16/2011 4:41 PM EST Narrative CERNER MILLENNIUM - 11/16/2011 4:40 PM EST Specimen requisition ordered. ??Separate Pathology report to follow Alisa Richards MD PATHOLOGY/CYTOLOGY O SHAYAN Performing Organization Address [facility] Co de Phone Number [facility] * UPPER GI ENDOSCOPY (11/16/2011 3:58 PM EST) UPPER GI ENDOSCOPY [facility] Endoscopy Patient Name: Jo Jones ? Procedure Date: 11/16/2011 3:58 PM ? Date of : 1965 ? Age: 45 ? Order #: [id number] ? Procedure: ? Upper GI endoscopy Indications: ? Heartburn, Dyspepsia; followup to EGD ? June 2010 showing Grade A ? esophagitis Providers: ? Alisa Richards MD, Kimberly Borja, ? RN, Nixon Romero, Bead Forming Machine Set Up Operator Referring : ?Nanda Read MD Requesting Provider: [...] Glucose, POC 64 60 - 199 mg/dL CERNER [facility] Comment: Supplemental ranges: <110 mg/dL before meals <200 mg/dL all other times of the day Blood specimen (specimen) 11/16/2011 3:10 PM EST 11/16/2011 3:10 PM EST Alisa Richards MD POINT OF CARE TEST O RDERABLES KENDALL [facility] documented in this encounter Visit Diagnoses Not on filedocumented in this encounter Active and Recently Administered Medications Care Teams Supervisor Cutting And Sewing Room Relationship Specialty Start Date End Date Nanda Read MD [facility] [address] [place] [address] PCP - General 09/14/10 06/06/18 documented as of this encounter
--- OUTSIDE RECORDS SUMMARY | 2024-09-18 16:16 | XMS_ITS | Encounter Summary ---
Author Organization [facility] [place] [address] Care Team Providers Care Hide Examiner Name Role Phone Nanda Read MD Primary Care Provider Encounter Details Date Type Department Care Team (Late st Contact Info) Description 12/24/2010 3:30 PM EST Office [place] [phone] Polina Aguilar, PT [facility] PHYSICAL MEDICINE & [place] [address] Nanda Read MD [facility] [address] [place], [place] [phone] Discharge Disposition: Home Social History Tobacco Use [...] AM EDT TH Visit (TeleHealth) [place] [phone] Wyatt Higgins MD [facility] [place] [address] documented as of this encounter Visit Diagnoses Not on filedocumented in this encounter Care Teams Hide Examiner Relationship Specialty Start Date End Date Nanda Read MD [facility] [address] [place] [address] PCP - General 09/14/10 06/06/18 documented as of this encounter
--- OUTSIDE RECORDS SUMMARY | 2024-09-18 16:16 | XMS_ITS ---
Author Organization Unknown Address [address] [place] [phone] Phone Care Team Providers Care Elderly Sitter Name Role Phone KARLY Mcelroy Attending Unavailable Results HEMOGLOBIN A1C* - Collect Da te/Time: 11/28/2022 11:31 [facility] ID: [id number] - [id number] [address] [place] [address], [address] LOINC: 4548-4 Test Value Unit Reference Range Code Code System Flag Hgb A1c 7.2 % L=3.8 H=5.7 4548-4 LOINC H MEAN BLOOD GLUCOSE 154 mg/dL 29279-0 LOINC Social History Type Status Start Date End Date Code Code Syst em Smoking History Never smoker (Never Smoked) [id number] SNOMED CT Sex Female Hospital Discharge Instructions [...] due to type 2 diabetes mellitus 023 [id number] SNOMED-CT Personal Care Team Section Performer Name Performer Role Active Date Inactive Da te
== END 2024-09-18 15:52 | disposition home or self-care (01) ==
LOC: NCHCN 15:51
PROVIDERS: PCP Family Medicine; Visit Provider Family Medicine
DX: N39.0 Urinary tract infection, site not specified (principal); B96.29 Other Escherichia coli [E. coli] as the cause of diseases classified elsewhere; R82.89 Other abnormal findings on cytological and histological examination of urine
CPT/HCPCS: 87077; 87086; 87186

== ENCOUNTER 2025-03-26 17:18 | Outpatient (REF) | payer MEDICAID, SELFPAY ==
[2025-03-28 12:57] LABS: Bacterial Vaginosis (BV) Negative (Negative); Candida glabrata Positive (Negative); Candida species group Negative (Negative); Trichomonas vaginalis Negative (Negative)
== END 2025-03-26 17:19 | disposition home or self-care (01) ==
LOC: NCHCN 17:18
PROVIDERS: PCP Family Medicine; Visit Provider Family Medicine
DX: B37.31 Acute candidiasis of vulva and vagina (principal)
CPT/HCPCS: 81513; 87481; 87661

== ENCOUNTER 2025-05-22 17:59 | Outpatient (REF) | payer MEDICAID, SELFPAY | END 2025-05-22 18:00 | disposition home or self-care (01) | LOC: NCHCN 17:59 | PROVIDERS: PCP Family Medicine; Visit Provider Family Medicine | DX: R30.0 Dysuria (principal) | CPT/HCPCS: 87086 ==